=== PATIENT | male | born 1945 | race Caucasian/White ===

== ENCOUNTER → 2017-12-20 10:26 | Outpatient (CLI) | payer MEDICARE, OTHER, SELFPAY ==
[2017-12-20 12:02] LABS: Hematocrit 45.4 % (40-54); Hemoglobin 15.3 g/dl (13.0-16.5); Mean Corp Hgb Conc 33.7 g/gl (32-36); Mean Corpuscular Hgb 30.9 pg (27.0-32.0); Mean Corpuscular Volume 91.7 fL (80-94); Mean Platelet Vol. 10.5 fl (6.2-12.0); Platelet Count 227 K/mm3 (150-450); RBC Distribution Width CV 13.3 % (11.6-14.6); RBC Distribution Width SD 43.8 fl (35.1-43.9); Red Blood Count 4.95 M/mm3 (4.6-6.2); White Blood Count 5.7 K/mm3 (4.4-11.0)
[2017-12-20 12:07] LABS: Scan Indicated on CBC? Y/N NO
[2017-12-20 12:16] LABS: BUN 16 mg/dL (7-18); Creatinine, Serum 0.95 mg/dL (0.70-1.30); Glucose 69 mg/dL (70-110)
[2017-12-20 12:17] LABS: ALB/GLOB Ratio 0.8 RATIO (0.9-2.4); AST(SGOT) 31 U/L (15-37); Alanine Aminotransfer ALT/SGPT 41 U/L (16-61); Albumin, Serum 3.4 g/dL (3.2-5.0); Alkaline Phosphatase 54 U/L (45-117); Anion Gap 9 (5-15); BUN/Creat Ratio 16.8 RATIO (10-20); Calcium,Total 8.8 mg/dL (8.5-10.1); Chloride 103 mmol/L (98-107); Cholesterol 120 mg/dL (200); EST Glomerular Filtration Rate 82 mL/min (>60); Est Glom Filt Rate - Afr Amer 100 mL/min (>60); Globulin 4.1 g/dL (2.2-4.2); High Density Lipoprotein 39 mg/dL; Potassium 3.9 mmol/L (3.5-5.1); Protein, Total 7.5 g/dL (6.4-8.2); Sodium Level 140 mmol/L (136-145); Triglycerides 118 mg/dL; Very Low Density Lipoprotein 24 mg/dL (5-40)
== END ==
PROVIDERS: Family Provider Family Medicine; PCP Family Medicine; Visit Provider Family Medicine
DX: E11.40 Type 2 diabetes mellitus with diabetic neuropathy, unspecified (principal); E29.1 Testicular hypofunction
CPT/HCPCS: 36415; 80053; 80061; 84403; 85027

== ENCOUNTER → 2018-01-04 09:55 | Outpatient (CLI) | payer MEDICARE, OTHER, SELFPAY ==
[2018-01-04 10:39] LABS: Amphetamine Urine VISTA NEGATIVE (<1000 ng/mL); Barbiturate Urine VISTA NEGATIVE (< 200 ng/mL); Benzodiazepine Urine VISTA NEGATIVE (< 200 ng/mL); Cocaine Urine VISTA NEGATIVE (< 300 ng/mL); Ecstacy Urine VISTA NEGATIVE (< 500 ng/mL); Methadone Urine VISTA NEGATIVE (< 300 ng/mL); PCP Urine VISTA NEGATIVE (< 25 ng/mL); THC Urine VISTA NEGATIVE (< 50 ng/mL); Vista UDS pH Range 6
== END ==
PROVIDERS: Family Provider Family Medicine; PCP Family Medicine; Visit Provider Anesthesiology Pain Medicine
DX: F11.20 Opioid dependence, uncomplicated (principal)
CPT/HCPCS: 80307

== ENCOUNTER → 2018-01-08 10:09 | Outpatient (CLI) | payer MEDICARE, OTHER, SELFPAY ==
--- NOTE | 2018-01-08 10:13 | RAD_ITS ---
XR Wrist Min 3 Views INDICATION: pt fell and broke wrist in September, pt still having pain COMPARISON: None TECHNIQUE: 3 views of the left wrist FINDINGS: There is an impacted and minimally angulated fracture of the left distal radius. The left distal ulna appears intact. There is normal alignment of the carpal bones. RAD/Wrist min 3 Views IMPRESSION: Mildly impacted and minimally angulated left distal radial fracture. at 0051 Reported and signed by: Nikki Bowman MD Electronically Signed: Nikki Bowman MD at 23:50 EST Tel , Service support ,
== END ==
PROVIDERS: Family Provider Family Medicine; PCP Family Medicine; Visit Provider Family Medicine
DX: S52.502A Unspecified fracture of the lower end of left radius, initial encounter for closed fracture (principal); X58.XXXA Exposure to other specified factors, initial encounter
CPT/HCPCS: 73110

== ENCOUNTER → 2018-01-11 09:48 | Outpatient (CLI) | payer MEDICARE, OTHER, SELFPAY ==
--- NOTE | 2018-01-11 09:53 | RAD_ITS ---
STUDY: X-RAY - RIGHT SHOULDER REASON FOR EXAM: Male, 72 years old. Right shoulder pain. TECHNIQUE: 4 view(s) of the shoulder. COMPARISON: None. FINDINGS: Normal glenohumeral articulation. Normal acromioclavicular joint. Normal acromion. Normal humeral head and visualized proximal humerus. The soft tissue structures are unremarkable. Normal visualized pulmonary apex. RAD/Shoulder min 2 Views IMPRESSION: Normal x-ray examination of the shoulder. Electronically Signed: Cory Jose MD at 14:02 EST Tel [phone], Service support ,
[2018-01-11 11:58] LABS: Hematocrit 44.6 % (40-54); Hemoglobin 14.9 g/dl (13.0-16.5); Mean Corp Hgb Conc 33.4 g/gl (32-36); Mean Corpuscular Hgb 30.8 pg (27.0-32.0); Mean Corpuscular Volume 92.1 fL (80-94); Mean Platelet Vol. 10.2 fl (6.2-12.0); Platelet Count 274 K/mm3 (150-450); RBC Distribution Width CV 13.7 % (11.6-14.6); RBC Distribution Width SD 45.3 fl (35.1-43.9); Red Blood Count 4.84 M/mm3 (4.6-6.2); White Blood Count 8.2 K/mm3 (4.4-11.0)
[2018-01-11 12:02] LABS: Scan Indicated on CBC? Y/N NO
[2018-01-11 12:17] LABS: T4 Free Direct 1.18 ng/dL (0.76-1.46); Thyroid Stim Hormone (TSH) 2.06 uIU/mL (0.358-3.74)
[2018-01-11 12:18] LABS: Erythrocyte Sedimentation Rate 29 mm/hr (0-20)
[2018-01-12 10:24] LABS: Vitamin B12 956 pg/mL (211-911)
[2018-01-14 12:06] LABS: Testosterone, Free 5.35 ng/dL (5.00-21.00)
[2018-01-15 11:22] LABS: Testosterone, Total 191 ng/dL (264-916)
== END ==
PROVIDERS: Family Provider Family Medicine; PCP Family Medicine; Visit Provider Family Medicine
DX: M75.21 Bicipital tendinitis, right shoulder (principal); R53.83 Other fatigue
CPT/HCPCS: 36415; 73030; 82607; 84402; 84403; 84439; 84443; 85027; 85652

== ENCOUNTER → 2018-07-03 09:44 | Outpatient (CLI) | payer MEDICARE, OTHER, SELFPAY | PROVIDERS: Family Provider Family Medicine; PCP Family Medicine; Visit Provider Internal Medicine Pulmonary Disease | DX: R06.00 Dyspnea, unspecified (principal) | CPT/HCPCS: 71046 ==

== ENCOUNTER → 2018-08-07 12:06 | Outpatient (CLI) | payer MEDICARE, OTHER, SELFPAY ==
[2018-08-07 13:15] LABS: Amphetamine Urine VISTA NEGATIVE (<1000 ng/mL); Barbiturate Urine VISTA NEGATIVE (< 200 ng/mL); Benzodiazepine Urine VISTA NEGATIVE (< 200 ng/mL); Cocaine Urine VISTA NEGATIVE (< 300 ng/mL); Ecstacy Urine VISTA NEGATIVE (< 500 ng/mL); Methadone Urine VISTA NEGATIVE (< 300 ng/mL); PCP Urine VISTA NEGATIVE (< 25 ng/mL); THC Urine VISTA NEGATIVE (< 50 ng/mL); Vista UDS pH Range 6
== END ==
PROVIDERS: Family Provider Family Medicine; PCP Family Medicine; Visit Provider Anesthesiology Pain Medicine
DX: F11.20 Opioid dependence, uncomplicated (principal)
CPT/HCPCS: 80307

== ENCOUNTER → 2018-12-12 16:22 | Outpatient (CLI) | payer MEDICARE, OTHER, SELFPAY ==
[2018-12-12 17:59] LABS: Absolute Lymphocyte Count 4.35 X10^3/ul (0.83-4.51); Absolute Neutrophil Count 5.3 X10^3/uL (2.0-7.7); Basophil# 0.06 X10^3/uL; Basophil% 0.5 % (0-1); Eosinophil# 0.24 X10^3/uL; Eosinophils% 2.2 % (0-5); Hematocrit 44.7 % (40-54); Hemoglobin 14.8 g/dl (13.0-16.5); Lymphocyte # 4.35 X10^3/ul (4.0); Lymphocyte % 39.4 % (19-41); Mean Corp Hgb Conc 33.1 g/gl (32-36); Mean Corpuscular Hgb 30.6 pg (27.0-32.0); Mean Corpuscular Volume 92.5 fL (80-94); Mean Platelet Vol. 10.5 fl (6.2-12.0); Monocyte# 1.08 X10^3/uL; Monocyte% 9.8 % (0-10); Neutrophil # 5.27 X10^3/uL (2.7-7.7); Neutrophil % 47.6 % (47-70); Platelet Count 275 K/mm3 (150-450); RBC Distribution Width CV 13.8 % (11.6-14.6); RBC Distribution Width SD 46.3 fl (35.1-43.9); Red Blood Count 4.83 M/mm3 (4.6-6.2); White Blood Count 11.1 K/mm3 (4.4-11.0)
[2018-12-12 18:01] LABS: POSITIVE COUNT NO; POSITIVE DIFFERENTIAL NO; POSITIVE MORPHOLOGY NO
[2018-12-12 18:12] LABS: AST(SGOT) 17 U/L (15-37); Alanine Aminotransfer ALT/SGPT 38 U/L (16-61); Albumin, Serum 3.7 g/dL (3.2-5.0); Alkaline Phosphatase 57 U/L (45-117); Anion Gap 10 (5-15); BUN 20 mg/dL (7-18); BUN/Creat Ratio 19.6 RATIO (10-20); Calcium,Total 9.1 mg/dL (8.5-10.1); Chloride 104 mmol/L (98-107); Creatinine, Serum 1.02 mg/dL (0.70-1.30); EST Glomerular Filtration Rate 76 mL/min (>60); Est Glom Filt Rate - Afr Amer 92 mL/min (>60); Globulin 3.6 g/dL (2.2-4.2); Glucose 170 mg/dL (74-106); Potassium 3.8 mmol/L (3.5-5.1); Protein, Total 7.3 g/dL (6.4-8.2); Sodium Level 142 mmol/L (136-145)
--- OUTSIDE RECORDS SUMMARY | 2019-02-13 18:49 | XMS RPT_ITS ---
:1945 Author Organization OHIP Support Name Relationship Address Phone R Unavailable Unavailable Unavailable CHIQUITA GRIFFITH Unavailable [address] + [place] [address] R Unavailable Unavailable Unavailable CHIQUITA GRIFFITH Unavailable [address] + [place] [address] R Unavailable Unavailable Unavailable CHIQUITA GRIFFITH Unavailable [address] + [place] [address] Chiquita Griffith L Unavailable Unavailable + R Unavailable Unavailable Unavailable CHIQUITA GRIFFITH Unavailable [address] + [place] [address] Chiquita Griffith L Unavailable Unavailable + Chiquita Griffith L Unavailable Unavailable + Chiquita Griffith L Unavailable Unavailable + Chiquita Griffith L Unavailable Unavailable + Chiquita Griffith L Unavailable Unavailable + R Unavailable Unavailable Unavailable R Unavailable Unavailable Unavailable CHIQUITA GRIFFITH Unavailable [address] + [facility] [place] [address] MARVIN PRICE Unavailable [address] + [place] [address] R Unavailable Unavailable Unavailable CHIQUITA GRIFFITH Unavailable [address] + [facility] [place] [address] Chiquita Griffith L Unavailable Unavailable + MARVIN PRICE Unavailable [address] + [place] [address] R Unavailable Unavailable Unavailable CHIQUITA GRIFFITH Unavailable [address] + [facility] [place] [address] MARVIN PRICE Unavailable [address] + [place] [address] R Unavailable Unavailable Unavailable ROBYN GRIFFITHCY Unavailable [address] + [place] [address] FIDEL PRICEANDA Unavailable [address] + [place] [address] R Unavailable Unavailable Unavailable ROBYN GRIFFITHCY Unavailable [address] + [place] [address] ALBERT MARVIN Unavailable [address] + [place] [address] R Unavailable Unavailable Unavailable YUROBYN WEEMSCY Unavailable [address] + [place] [address] Care Team Providers Name Role Phone Roel Saucedo Attending Unavailable PROVIDER, UNKNOWN Referring Unavailable Jolliff, Patricia S Primary Care Unavailable Roel Saucedo Attending Unavailable PROVIDER, UNKNOWN Referring Unavailable Jolliff, Patricia S Primary Care Unavailable Roel Saucedo Attending Unavailable PROVIDER, UNKNOWN Referring Unavailable Jolliff, Patricia S Primary Care Unavailable Krissy Castaneda Attending Unavailable PROVIDER, UNKNOWN Referring Unavailable Jolliff, Patricia S Primary Care Unavailable Krissy Castaneda Attending Unavailable PROVIDER, UNKNOWN Referring Unavailable Jolliff, Patricia S Primary Care Unavailable Krissy Castaneda Attending Unavailable PROVIDER, UNKNOWN Referring Unavailable Jolliff, Patricia S Primary Care Unavailable Roel Saucedo Attending Unavailable PROVIDER, UNKNOWN Referring Unavailable Jolliff, Patricia S Primary Care Unavailable Arnaud Jean-Baptiste Attending Unavailable Jolliff, Patricia Primary Care Unavailable Roberto Hodge Attending Unavailable Roberto Hodge Referring Unavailable Jolliff, Patricia Primary Care Unavailable Rito Marques Attending Unavailable Ranney, Christopher Primary Care Unavailable FranciscoiKim Attending Unavailable Basali, Ayman Referring Unavailable Ranney, Christopher Primary Care Unavailable RanneyFabiáner Attending Unavailable Ranney, Christopher Referring Unavailable Ranney, Christopher Primary Care Unavailable RanFabián hernándezer Attending Unavailable Ranney, Christopher Primary Care Unavailable Sandra Durbin Attending Unavailable Vladimir Sears Attending Unavailable Ranney, Christopher Referring Unavailable Ranney, Christopher Primary Care Unavailable Jose Perez Attending Unavailable Jose Perez Referring Unavailable Jolliff, Patricia Primary Care Unavailable Basali Ayman Attending Unavailable Basali, Ayman Referring Unavailable Jolliff, Patricia Primary Care Unavailable PROBLEMS PROBLEMS DATE TYPE CONDITION / CODE ATTENDING STATUS SOURCE 12/17/2018 Unknown Z96.652 - Presence Estiven, Arnaud Active [facility] left artificial Community knee joint / Hospital Z96.652(ICD-10) Repository 07/12/2018 Admitting Unsp fx lower end of Lewis, Roel Active [facility] Diagnosis l ulna, subs for System clos fx w routn heal Repository / S52.602D(ICD-10) 07/12/2018 Admitting Other specified Lewis, Roel Active [facility] Diagnosis postprocedural System states / Repository Z98.890(ICD-10) 07/12/2018 Admitting Oth disrd of bone Lewis, Roel Active [facility] Diagnosis density and System structure, left Repository forearm / M85.832(ICD-10) 05/31/2018 Admitting Pain in left wrist / McGreal, Active [facility] Diagnosis M25.532(ICD-10) Krissy System Repository 05/31/2018 Admitting Unsp physl fx low McGreal, Active [facility] Diagnosis end ulna, l arm, Krissy System subs for fx w routn Repository heal / S59.002D(ICD-10) 04/17/2018 Admitting Sanchez's fracture of Lewis, Roel Active [facility] Diagnosis r radius, subs for System clos fx w malunion / Repository S52.561P(ICD-10) 04/17/2018 Admitting Other articular Lewis, 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, System left wrist / Repository M24.132(ICD-10) 04/17/2018 Admitting Essential (primary) Lewis, Roel Active [facility] Diagnosis hypertension / System I10(ICD-10) Repository 04/17/2018 Admitting Type 2 diabetes Lewis, Roel Active [facility] Diagnosis mellitus without System complications / Repository E11.9(ICD-10) 04/17/2018 Admitting Hyperlipidemia, Lewis, Roel Active [facility] Diagnosis unspecified / System E78.5(ICD-10) Repository 04/17/2018 Admitting Anxiety disorder, Lewis, Roel Active [facility] Diagnosis unspecified / System F41.9(ICD-10) Repository 04/10/2018 Admitting Encounter for other Lewis, Roel Active [facility] Diagnosis preprocedural System examination / Repository Z01.818(ICD-10) 04/10/2018 Admitting Sanchez's fracture of Roel Saucedo [facility] Diagnosis left radius, init System for clos fx / Repository S52.562A(ICD-10) 01/04/2018 Unknown F11.20 - Opioid Basali, Ayman Active [place] dependence, Community uncomplicated / Hospital F11.20(ICD-10) Repository PROCEDURES PROCEDURES No Procedure Records FoundRESULTS RESULTS HEMOGLOBIN A1C Collected: 12/17/2018 Status: F Source: [place] 3:51 PM [facility] REPOSITORY TYPE CODE TESTS RESULT OUT OF RANGE REFERENCE UNITS LAB L501.9985 4.2-6.3 % High HGB A1C 8.5 Performed By: #### L501.9985 #### [facility] [address] [place], [address] LIPID PROFILE Collected: 12/17/2018 Status: F Source: [place] 3:51 PM [facility] REPOSITORY TYPE CODE TESTS RESULT OUT OF RANGE REFERENCE UNITS LAB L501.4900 200 mg/dL Normal CHOL 149 Result Comment: <200 mg/dL Desirable 200-240 mg/dL Borderline >240 mg/dL High Risk LAB L501.5000 mg/dL High TRIG 236 Result Comment: The drugs N-Acetylcysteine and Metamizole may falsely depress this assay. Serum Triglycerides Reference Interval Normal <150 mg/dL Borderline high 150 - 199 mg/dL High 200 - 499 mg/dL Very High > or = 500 mg/dL LAB L501.6400 mg/dL Low HDL 37 Result Comment: The drugs N-Acetylcysteine and Metamizole may falsely depress this assay. Reference Range HDL <40 mg/dL Low HDL Cholesterol HDL >or= 60 mg/dL High HDL Cholesterol LAB L501.6500 0-130 mg/dL Normal LDL 65 LAB L501.6600 5-40 mg/dL High VLDL 47 Performed By: #### L500.4100 #### [facility] [address] [place], [address] CBC W/DIFF, AUTOMATED Collected: 12/12/2018 Status: F [facility] [facility] TYPE CODE TESTS RESULT OUT OF RANGE REFERENCE UNITS LAB L100.1000 4.4-11.0 K/mm3 High WBC 11.1 LAB L100.1200 4.6-6.2 M/mm3 Normal RBC 4.83 LAB L100.1300 13.0-16.5 g/dl Normal HGB 14.8 LAB L100.1400 40-54 % Normal HCT 44.7 LAB L100.1500 80-94 fL Normal MCV 92.5 LAB L100.1600 27.0-32.0 pg Normal MCH 30.6 LAB L100.1700 32-36 g/gl Normal MCHC 33.1 LAB L100.1810 11.6-14.6 % Normal RDW CV 13.8 LAB L100.1820 35.1-43.9 fl High RDW SD 46.3 LAB L100.1900 150-450 K/mm3 Normal PLT 275 LAB L100.2000 6.2-12.0 fl Normal MPV 10.5 LAB L100.2100 47-70 % Normal NEUT% 47.6 LAB L100.2200 19-41 % Normal LY% 39.4 LAB L100.2300 0-10 % Normal MONO% 9.8 LAB L100.2400 0-5 % Normal EO% 2.2 LAB L100.2500 0-1 % Normal BASO% 0.5 LAB L100.2550 0.0-0.9 % Normal IM GRAN % 0.500 Result Comment: IG% - Immature Granulocytes (promyelocytes, myelocytes and metamyelocytes) > 1% indicates that a LEFT SHIFT is Present. LAB L100.2620 2.0-7.7 X10 3/uL Normal Absolute Neut 5.3 LAB L100.2720 0.83-4.51 X10 3/ul Normal Absolute Lymph 4.35 Performed By: #### L100.0100, L500.4050 #### [facility] [place], [address] COMPREHENSIVE METABOLIC Collected: 12/12/2018 Status: F [facility] REPOSITORY TYPE CODE TESTS RESULT OUT OF RANGE REFERENCE UNITS LAB L501.0100 74-106 mg/dL High GLU 170 Result Comment: Fasting Glucose result greater than or equal to 126 mg/dL suggests DIABETES MELLITUS per A.D.A. criteria. Please note revised GLUCOSE reference range effective 2017. LAB L501.1000 7-18 mg/dL High BUN 20 LAB L501.1100 0.70-1.30 mg/dL Normal CREAT,SERUM 1.02 Result Comment: The validity of the calculated GFR AND GFRAA in patients over 70 years has not been determined. Clinical correlation is essential. LAB L501.1110 >60 mL/min Normal EST GFR 76 Result Comment: Non- GFR Calc LAB L501.1115 >60 mL/min Normal EST GFR - AA 92 Result Comment: GFR Calc LAB L501.1300 10-20 RATIO Normal BUN/CRE 19.6 LAB L501.1500 6.4-8.2 g/dL T Normal PROT 7.3 LAB L501.1800 3.2-5.0 g/dL Normal ALB 3.7 LAB L501.1950 2.2-4.2 g/dL Normal GLOB 3.6 LAB L501.2000 0.9-2.4 RATIO Normal A/G 1.0 LAB L501.2200 8.5-10.1 mg/dL CA Normal 9.1 LAB L501.4100 15-37 U/L Normal AST 17 LAB L501.4305 45-117 U/L Normal ALK P 57 LAB L501.4405 16-61 U/L Normal ALT 38 LAB L501.4600 0.20-1.00 mg/dL T Normal BILI 0.60 LAB L501.5300 136-145 mmol/L NA Normal 142 LAB L501.5600 3.5-5.1 mmol/L K Normal 3.8 LAB L501.5900 98-107 mmol/L CL Normal 104 LAB L501.6100 21.0-32.0 mmol/L Normal CO2 28.0 LAB L501.6200 5-15 Normal GAP 10 Performed By: #### L100.0100, L500.4050 #### [facility] [address] [place], [address] URINE DRUG SCREEN Collected: 08/07/2018 Status: F Source: [place] ([place]) 12:12 PM [facility] REPOSITORY Order Comment: Comments: [id number] URINE DRUG SCREEN List of Drugs Taken or Suspected? UNK TYPE CODE TESTS RESULT OUT OF RANGE REFERENCE UNITS LAB L505.0075 TO BE Normal CONFIRMED Result Comment: CONFIRMATORY TESTING FOR ALL POSITIVE URINE DRUG SCREEN RESULTS WILL ONLY BE SENT OUT UPON PHYSICIAN ORDER. VISTA Urine Drug Screen methods provide only preliminary analytical test results. A more specific alternate chemical method must be used in order to obtain a confirmed analytical result. Gas chromatography/mass spectrometery (GC/MS) is the preferred confirmatory method. Clinical consideration and professional judgement should be applied to any drug of abuse test result, particularly when preliminary positive results are used. URINE TCA TESTING MUST BE ORDERED SEPARATELY. USE TEST MNEMONIC: [facility] LAB L505.5005 VISTA UDS PH 6 Normal LAB L505.5015 <1000 ng/mL AMPHETAMINES Normal NEGATIVE LAB L505.5025 < 200 ng/mL BARBITIURATES Normal NEGATIVE LAB L505.5035 < 200 ng/mL BENZODIAZIPINE Normal NEGATIVE LAB L505.5045 < 300 ng/mL COCAINE Normal NEGATIVE LAB L505.5055 < 500 ng/mL ECSTACY Normal NEGATIVE LAB L505.5065 < 300 ng/mL METHADONE Normal NEGATIVE LAB L505.5075 < 300 High ng/mL OPIATES POSITIVE LAB L505.5085 < 25 ng/mL PCP Normal NEGATIVE LAB L505.5095 < 50 ng/mL THC Normal NEGATIVE Performed By: #### L505.5000 #### [facility] [address] [place], [address] MISCELLANEOUS LAB Collected: 08/07/2018 Status: F Source: [place] PROCEDURE 12:12 PM [facility] REPOSITORY Order Comment: Comments: [id number] URINE DRUG SCREEN Test(s) Ordered: [id number] URINE DRUG SCREEN TYPE CODE TESTS RESULT OUT OF RANGE REFERENCE UNITS LAB L801.1541 Normal [facility] LAB TEST Result Comment: TEST RESULT UNITS REF INTERVAL [id number] 6+Oxycodone-Bund Amphetamines, Urine Negative ng/mL Ifddkw=3680 Amphetamine test includes Amphetamine and Methamphetamine. Barbiturate Negative ng/mL Rjytlt=481 Benzodiazepines Negative ng/mL Bubyoh=418 Cannabinoids Negative ng/mL Cutoff=20 Cocaine (Metabolite) Negative ng/mL Trngau=110 Opiates Positive ng/mL Kdlofa=331 Opiate test includes Codeine, Morphine, Hydromorphone, Hydrocodone. Please Note: Confirmation performed by Mass Spectrometry Codeine Negative Qacygg=233 Morphine Negative Pvxlgw=042 Hydromorphone Negative Srpkec=206 Hydrocodone Positive Hydrocodone Confirm 333 ng/mL Bayxvw=877 Oxycodone/Oxymorphone, Urine Negative ng/mL Shwktb=388 Test includes Oxycodone and Oxymorphone TESTING PERFORMED AT [facility]. ORIGINAL REPORT ON FILE IN LAB CONTAINS ADDITIONAL TEST SITE INFORMATION. Performed By: #### L801.1541 #### [facility] [address] [place], [address] CR FOREARM 2 VIEWS Observed: 07/12/2018 Status: F Source: [facility] 5:51 PM SYSTEM REPOSITORY Patient Name: KEVIN GRIFFITH Diagnostic Radiology Exam Date/Time 07/12/2018 08:00:00 EDT Exam CR Forearm 2 Views Left Ordering Physician MD LEWIS, ROEL Benton Accession Number [id number] CPT4 Codes 21150 () Reason For Exam surgery Report LEFT FOREARM: CLINICAL INDICATION: Surgery. Fracture follow-up. TECHNIQUE: AP and Lateral COMPARISON: 05/31/2018. FINDINGS: There is remote healed transverse fracture deformity of the distal third of the ulna, which is maintained by side plate and screws. Alignment and positioning of the humeral fracture fragments remain anatomic. Callous formation is evident at the fracture site. No other bony or soft tissue abnormality is identified. IMPRESSION: Status post ORIF distal ulnar shaft fracture. No interval changes. Report Dictated on Final Dictating Physician: JOS SHARMA DO, I Signed Date and Time: 07/12/2018 5:53 pm Signed by: JOS SHARMA DO, I Transcribed Date and Time: 07/12/2018 5:54 CR WRIST COMPLETE 3 Observed: 07/12/2018 Status: F Source: [facility] VIEWS LEFT 3:57 PM SYSTEM REPOSITORY Patient Name: KEVIN GRIFFITH Diagnostic Radiology Exam Date/Time 07/12/2018 07:50:00 EDT Exam CR Wrist Complete 3 Views Left Ordering Physician MD LEWIS, ROEL Benton Accession Number [id number] CPT4 Codes 38331 () Reason For Exam surgery Report CLINICAL HISTORY: surgery COMPARISON: None. Technique: AP, lateral, and oblique views were obtained of the left wrist. FINDINGS: The patient is status post plate and screw fixation of the distal ulna. There is no acute fracture or dislocation of the left wrist., The joint spaces are normal and the alignment is anatomic. The bones are mildly osteopenia. The soft tissues are unremarkable. There are no radiopaque foreign bodies. IMPRESSION: No acute osseous out amount the of the left wrist. Moderate osteopenia. Report Dictated on Final Dictating Physician: MD OSULLIVAN YUN ROBERT Signed Date and Time: 07/12/2018 3:58 pm Signed by: MD OSULLIVAN YUN ROBERT Transcribed Date and Time: 07/12/2018 4:00 CHEST PA AND LATERAL Observed: 07/03/2018 Status: F Source: [place] 9:49 AM [facility] REPOSITORY [facility] [address] [place] [address] Chest PA and Lateral MR#: [id number] Acct: [id number] Name: KEVIN GRIFFITH Rep #: [id number] : 1945 M 72 From: Fide Padilla MD PCP: Patricia Mcgowan MD Status: REG CLI Study: Chest PA and Lateral Date of Exam: 07/03/18 Exam# [id number] Ordering Dr: Jose Perez MD STUDY: X-RAY CHEST REASON FOR EXAM: Male, 72 years old. INCREASED DYSPNEA X SEVERAL MONTHS TECHNIQUE: PA and lateral views of the chest. COMPARISON: None. FINDINGS: The lungs are hyperexpanded with mildly prominent interstitial markings/atelectasis at the lung bases.. There is no demonstrated pleural abnormality. Normal size heart. Normal mediastinum and javier. Normal visualized pulmonary arteries. Normal visualized aortic arch and descending thoracic aorta. There are diffuse degenerative changes of the visualized thoracic spine. Normal visualized ribs, clavicles, and shoulders. There is no demonstrated abnormality of the visualized soft tissue structures of the upper abdomen. RAD/Chest PA and Lateral IMPRESSION: The lungs are hyperexpanded with mildly prominent interstitial markings/atelectasis at the lung bases.. Electronically Signed: Fide Padilla MD at 10:54 EDT , Service support , CC: Patricia Mcgowan MD; Jose Perez MD Interior Specialist: Signed CR WRIST COMPLETE 3 Observed: 05/31/2018 Status: F Source: [facility] VIEWS LEFT 12:22 PM SYSTEM REPOSITORY Patient Name: KEVIN GRIFFITH Diagnostic Radiology Exam Date/Time 05/31/2018 07:55:00 EDT Exam CR Wrist Complete 3 Views Left Ordering Physician EDYTA CASTANEDA, KRISSY [place] Accession Number [id number] CPT4 Codes 06853 () Reason For Exam PAIN Report Clinical indications: Left wrist pain Findings: Three views are submitted for interpretation. There are no previous exams for comparison. There is no evidence of acute fracture, dislocation or subluxation.Intercarpal relationships are well-preserved. There is no appreciable degenerative change. The surrounding soft tissues are intact. There is no evidence of radio opaque foreign body or soft tissue gas formation. Plate and screw fixation of the distal ulnar shaft fracture is partially visualized. Impression: No acute osseous abnormality of the left wrist. Report Dictated on Final Dictating Physician: MD PERLA RUSSELL Signed Date and Time: 05/31/2018 12:23 pm Signed by: MD PERLA RUSSELL Transcribed Date and Time: 05/31/2018 12:25 CR FOREARM 2 VIEWS Observed: 05/31/2018 Status: F Source: [facility] LEFT 12:19 PM SYSTEM REPOSITORY Patient Name: KEVIN GRIFFITH Diagnostic Radiology Exam Date/Time 05/31/2018 07:55:00 EDT Exam CR Forearm 2 Views Left Ordering Physician EDYTA CASTANEDA NATALIE M Accession Number [id number] CPT4 Codes 69588 () Reason For Exam PAIN Report Clinical indications: Left forearm pain FINDINGS: Two views are submitted. Comparison is made with a previous study from 05/17/2018. There is plate and lag screw fixation of a distal diaphyseal ulnar fracture, with anatomic reduction. Hardware is intact. The soft tissues are within normal limits. Fracture line is not well visualized. Bone mineralization is normal. IMPRESSION: Unremarkable appearance, status post ORIF of ulnar shaft fracture. Intact hardware. Report Dictated on Final Dictating Physician: MD PERLA RUSSELL Signed Date and Time: 05/31/2018 12:21 pm Signed by: MD PERLA RUSSELL Transcribed Date and Time: 05/31/2018 12:22 CR WRIST COMPLETE 3 Observed: 05/17/2018 Status: F Source: [facility] LEFT 3:49 PM SYSTEM REPOSITORY Patient Name: KEVIN GRIFFITH Diagnostic Radiology Exam Date/Time 05/17/2018 14:26:52 EDT Exam CR Wrist Complete 3 Views Left Ordering Physician EDYTA CASTANEDA NATALIE M Accession Number [id number] CPT4 Codes 15448 () Reason For Exam pain Report HISTORY: Follow-up ORIF ulna Two views left forearm show healed fracture of the distal ulna with internal fixation with plate and screws. Left wrist three views are negative except for mild degenerative changes at the first metacarpal carpal joint Report Dictated on Final Dictating Physician: MD WADDELL WILLIAM Signed Date and Time: 05/17/2018 3:50 pm Signed by: MD WADDELL WILLIAM Transcribed Date and Time: 05/17/2018 3:51 CR FOREARM 2 VIEWS Observed: 05/17/2018 Status: F Source: [facility] 3:49 PM SYSTEM REPOSITORY Patient Name: KEVIN GRIFFITH Diagnostic Radiology Exam Date/Time 05/17/2018 14:26:23 EDT Exam CR Forearm 2 Views Left Ordering Physician EDYTA CASTANEDA NATALIE M Accession Number [id number] CPT4 Codes 95631 () Reason For Exam PAIN Report HISTORY: Follow-up ORIF ulna Two views left forearm show healed fracture of the distal ulna with internal fixation with plate and screws. Left wrist three views are negative except for mild degenerative changes at the first metacarpal carpal joint Report Dictated on Final Dictating Physician: MD WADDELL WILLIAM Signed Date and Time: 05/17/2018 3:50 pm Signed by: MD WADDELL WILLIAM Transcribed Date and Time: 05/17/2018 3:51 CR WRIST COMPLETE 3 Observed: 05/03/2018 Status: F Source: [facility] LEFT 2:19 PM SYSTEM REPOSITORY Patient Name: KEVIN GRIFFITH Diagnostic Radiology Exam Date/Time 05/03/2018 12:40:00 EDT Exam CR Wrist Complete 3 Views Left Ordering Physician EDYTA CASTANEDA NATALIE M Accession Number [id number] CPT4 Codes 98662 () Reason For Exam PAIN Report Examination: Left wrist 3 views Indication: PAIN Findings: Images demonstrate plate and screw fixation of the mid to distal ulna. There is no fracture line or osteotomy demonstrated. Small amount of cystic change of the lunate is noted. There are degenerative changes at the STT articulation.. Mild soft tissue swelling is noted. Impression: Unremarkable postsurgical changes. Report Dictated on Workstation: [employer] Final Dictating Physician: JOSH LOMAS Signed Date and Time: 05/03/2018 2:20 pm Signed by: JOSH LOMAS Transcribed Date and Time: 05/03/2018 2:22 CR FOREARM 2 VIEWS Observed: 05/03/2018 Status: F Source: [facility] LEFT 2:17 PM SYSTEM REPOSITORY Patient Name: KEVIN GRIFFITH Diagnostic Radiology Exam Date/Time 05/03/2018 12:40:00 EDT Exam CR Forearm 2 Views Left Ordering Physician EDYTA CASTANEDA NATALIE M Accession Number [id number] CPT4 Codes 30601 () Reason For Exam PAIN Report Examination: Left forearm two views Indication: PAIN Findings: Images demonstrate plate and screw fixation of the mid to distal ulna. There is no fracture line or osteotomy demonstrated. The visualized joint spaces are grossly maintained. The soft tissues are grossly unremarkable. Impression: Unremarkable postsurgical changes. Report Dictated on Workstation: [employer] Final Dictating Physician: JOSH LOMAS Signed Date and Time: 05/03/2018 2:19 pm Signed by: JOSH LOMAS Transcribed Date and Time: 05/03/2018 2:20 GLUCOSE,BEDSIDE Collected: 04/17/2018 Status: F Source: [facility] 9:49 AM SYSTEM REPOSITORY TYPE CODE TESTS RESULT OUT OF RANGE REFERENCE UNITS LAB BGLU 70-100 mg/dL High 173 Glucose,Beds mirza Result Comment: Test performed by glucose meter. Results may be 10%-15% lower than serum/plasma values. (CLIA ID [id number]) Performed By: #### BGLU #### [facility] [address] [place] [address] GLUCOSE,BEDSIDE Collected: 04/17/2018 Status: F Source: [facility] 6:34 AM SYSTEM REPOSITORY TYPE CODE TESTS RESULT OUT OF RANGE REFERENCE UNITS LAB BGLU 70-100 mg/dL High 219 Glucose,Beds mirza Result Comment: Test performed by glucose meter. Results may be 10%-15% lower than serum/plasma values. (CLIA ID [id number]) Performed By: #### BGLU #### [facility] [address] [place] [address] HEMOGRAM Collected: 04/10/2018 Status: F Source: [facility] 12:13 PM SYSTEM REPOSITORY TYPE CODE TESTS RESULT OUT OF RANGE REFERENCE UNITS LAB IWBC 3.6-10.7 10*3/uL WBC Normal 8.1 LAB RBC 4.40-5.90 10*6/uL RBC Normal 4.75 LAB HGB 13.0-18.0 g/dL Normal Hemoglobin 14.7 LAB HCT 40.0-52.0 % Normal Hematocrit 42.9 LAB MCV 80.0-98.0 fL MCV Normal 90.2 LAB MCH 26.0-34.0 pg MCH Normal 31.0 LAB MCHC 32.0-36.0 % MCHC Normal 34.4 LAB RDW 11.5-14.5 % RDW Normal 13.6 LAB PLT 140-440 10*3/uL Platelet Normal 216 LAB MPV 7.4-10.4 fL MPV Normal 8.4 Performed By: #### HEMOG, CMP3 #### [facility] [address] [place] [address] COMP METABOLIC PANEL Collected: 04/10/2018 Status: F Source: [facility] 12:13 PM SYSTEM REPOSITORY TYPE CODE TESTS RESULT OUT OF RANGE REFERENCE UNITS LAB NA3 137-145 mmol/L Sodium Normal 141 LAB K3 3.5-5.1 mmol/L Normal Potassium 4.0 LAB CL3 98-107 mmol/L Chloride Normal 101 LAB CO23 22-30 mmol/L High Carbon Dioxide 31 LAB ANIN3 NA Anion Gap 10 LAB GLUC3 70-100 mg/dL High Glucose 119 LAB BUN3 7-20 mg/dL High Urea Nitrogen 27 LAB CRET3 0.52-1.25 mg/dL Normal Creatinine 0.98 LAB GF3BR >60 mL/min eGFR > 60.0 LAB GF3WR >60 mL/min eGFR OTHER > 60.0 Result Comment: Source- MDRD equation with creatinine calibration to IDMS(NKDEP) eGFR not recommended for drug dose adjustment LAB CA3 8.4-10.2 mg/dL Calcium Normal 9.5 LAB ALB3 3.5-5.0 g/dL Albumin, Serum Normal 4.2 LAB TP3 6.3-8.2 g/dL Total Protein Normal 7.1 LAB BILT3 0.2-1.3 mg/dL Normal Bilirubin,Total 0.6 LAB ALKP3 38-126 U/L Alkaline Normal Phosphatase 54 LAB ALT3 13-69 U/L ALT (SGPT) Normal 43 LAB AST3 15-46 U/L AST (SGOT) Normal 24 Performed By: #### HEMOG, CMP3 #### [facility] [address] [place] [address] CARDIOLOGY VISIT Observed: 04/10/2018 Status: F Source: [place] REPORT 10:03 AM [facility] REPOSITORY [facility] [address] [place] [address] OFFICE VISIT Date of Service: 04/10/18 MR#: [id number] Acct: [id number] Name: KEVIN GRIFFITH Rep #: [id number] : 1945 Provider: Vladimir Sears MD Age/Sex: 72/M Location: [facility] Status: Signed HPI HPI Chief Complaint: Follow-up visit. Details: KEVIN GRIFFITH, is a 72 M who presents to the office today for a follow-up visit. He is a gentleman with a history of paroxysmal atrial fibrillation hypertension hyperlipidemia diabetes who returns for routine follow-up visit he says that he has not had any palpitations in a while he denies any chest pain or shortness breath or paroxysmal nocturnal dyspnea pedal edema no neck arm or jaw discomfort suggest angina. Indeed since starting the Toprol he has not had any issues. His physical exam today demonstrates clear lung lund regular rate and rhythm and no pedal edema. Intake Vital Signs04/10/18 Height 5 ft 11 in 04/10/18 Weight: 264 lb 04/10/18 Body Mass Index (BMI) 36.8 04/10/18 Blood Pressure 142/60 04/10/18 Respiratory Rate 18 04/10/18 Pulse Rate 72 Intake Visit Reasons: 6 M FU Allergies metoclopramide [From Reglan] Allergy (Verified 04/10/18 09:19) HYPER metformin [From Janumet] Adverse Reaction (Verified 04/10/18 09:19) unknown sitagliptin [From Janumet] Adverse Reaction (Verified 04/10/18 09:19) unknown Medications aspirin 81 mg tablet,delayed release 81 mg PO QDAY 04/06/18 [History Confirmed 04/10/18] gabapentin 300 mg capsule 600 mg PO QHS cap 04/06/18 [History Confirmed 04/10/18] glimepiride 4 mg tablet 4 mg PO BID tab 04/06/18 [History Confirmed 04/10/18] hydrochlorothiazide 25 mg tablet 25 mg PO QDAY 04/06/18 [History Confirmed 04/10/18] hydrocodone 5 mg-acetaminophen 325 mg tablet 1 tab PO BID PRN tab 04/06/18 [History Confirmed 04/10/18] insulin aspart U-100 100 unit/mL subcutaneous solution See Label Instructions .ROUTE .COMPLEX 04/06/18 [History Confirmed 04/10/18] insulin detemir (U-100) 100 unit/mL subcutaneous solution See Label Instructions .ROUTE .COMPLEX ml 04/06/18 [History Confirmed 04/10/18] ipratropium bromide 0.03 % nasal spray 2 spray INTRANASAL BID-TID PRN 04/06/18 [History Confirmed 04/10/18] metformin ER 750 mg tablet,extended release 24 hr 1,500 mg PO QHS tab 04/06/18 [History Confirmed 04/10/18] paroxetine 10 mg tablet 10 mg PO QDAY 04/06/18 [History Confirmed 04/10/18] potassium chloride 20 mEq oral packet 20 meq PO QDAY 04/06/18 [History Confirmed 04/10/18] pravastatin 80 mg tablet 80 mg PO QDAY 04/06/18 [History Confirmed 04/10/18] saxagliptin 5 mg-metformin ER 1,000 mg tablet,extend release 24hr mp 1 tab PO QDAY tab 04/06/18 [History Confirmed 04/10/18] tolterodine ER 4 mg capsule,extended release 24 hr 4 mg PO QDAY 04/06/18 [History Confirmed 04/10/18] metoprolol succinate ER 50 mg tablet,extended release 24 hr 50 mg PO QDAY #90 tab 04/10/18 [Rx Confirmed 04/10/18] Nurse's Note: Patient states he will be having LUE surgery next week at [facility] Medical History PAC (premature atrial contraction) (Chronic) Diabetes mellitus type 2, controlled (Chronic) HLD (hyperlipidemia) (Chronic) HTN (hypertension) (Chronic) Paroxysmal atrial fibrillation (Chronic) Arthritis (Chronic) Back problem (Chronic) Cataract (Chronic) Surgical History History of left tennis elbow (Chronic) History of skin cancer (Chronic) History of total left knee replacement (TKR) (Chronic) Hx of spinal fusion (Chronic) Family History Father Leukemia Social History Smoking Status: Former smoker alcohol intake: never substance use type: does not use ROS Const Const: Negative for fatigue, weakness, difficulty sleeping, frequent falls, headache(s) or excessive sweating Eyes Eyes: Negative for loss of peripheral vision, transient loss of vision, blurry vision or double vision ENT ENT: Negative for headache(s), dizziness, Nosebleed/epistaxis or balance problems Cardio Chest Pain: No Edema: None Muscle aches with walking: None Resp Respiratory: Negative for SOB with activity, SOB at rest, SOB orthopnea\SOB lying down or paroxysmal nocturnal dyspnea GI GI: Negative nausea or heartburn : Negative for hematuria Musc Musc: Positive for joint pain (LUE pain); negative for muscle aches/ myalgia, muscle weakness or balance problems Skin Skin: Negative non-healing lesions, unusual bruising or rash Neuro Neuro: Negative for weakness, frequent falls, blurry vision, headache(s), dizziness, lightheadedness, orthostatic symptoms or double vision Peter Hematologic/Lymphatic: Negative for easy bruising Endo Endo: Negative for fatigue, excessive sweating or increased thirst/drinking Psych Psych: Negative for anxiety or depression Allergy Allergy/Immunology: Negative for hives, Negative for rash Cardiology Exam Const Appearance: cooperative, healthy appearing, well developed, well groomed and no acute distress Nutritional Appearance: well nourished and average body habitus Orientation: alert, awake and oriented x3 Head Head: normal to inspection, normocephalic and atraumatic Ears: hearing grossly normal bilaterally and external ears normal Nose: external nose normal, nasal mucous membranes and turbinates normal, nares normal, septum normal, no nasal discharge Face and Sinus: face symmetric Mouth: oral mucosae normal, tongue normal, oropharynx normal and moist mucous membranes Teeth and gingiva: dentition normal Throat: posterior oropharynx normal, tonsils normal and uvula midline Eyes General: appearance normal, both eyes and all related structures Eyelids: eyelids normal Conjunctivae: conjunctivae normal Pupils: PERRL, normal by confrontation and accommodation normal EOM: EOM intact bilaterally Neck Neck: normal visual inspection, trachea midline and no JVD JVD: +5 Carotids: normal carotid upstroke and bounding pulses Chest Chest inspection: normal inspection of the chest, symmetric chest movement and normal respiratory effort Auscultation: Bilateral: Clear to Auscultation Cardio Palpation: normal PMI Rate: regular rate Rhythm: regular rhythm Heart sounds: S1 normal, S2 normal and normal, physiologic split S2; negative rub, gallop or murmur GI GI: normal to inspection, soft, no hepatosplenomegaly and bowel sounds present Neuro General: alert, awake, oriented x3, no focal sensory deficit, gait normal and moves all extremities Skin Skin: no rashes or lesions noted Extremities Pulses: Normal: Right Femoral Pulse, Left Femoral Pulse, Right Dorsalis Pedis Pulse, Left Dorsalis Pedis Pulse, Right Posterior Tibial Pulse, Left Posterior Tibial Pulse, Right Radial Pulse, Left Radial Pulse Lower Extremity Edema: None: Bilateral Musculoskel Musculoskeletal: No joint tenderness Psych Psychological: normal affect Assessment AND Plan 1. Paroxysmal atrial fibrillation I48.0 Plan With his history of palpitations with no documented paroxysmal atrial fibrillation on the 48 hour Holter monitor my recommendation is that we continue him on the current dose of aspirin as well as metoprolol. He has not had any neck arm or jaw discomfort suggest angina. No changes will be made at this time. 2. Essential hypertension I10 Plan His blood pressure appears to be under excellent control on the current medical therapy and I will continue to ask him to monitor this closely with no changes. 3. Pure hypercholesterolemia E78.00; E78.0 Plan He remains on his current dose of statin and his most recent lipid profile demonstrated total cholesterol 120, LDL 57 and HDL of 39. No other changes will be made. Thank you for allowing me to participate in the care of your patient. 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) Coding Level of Care Code Off vis,est,level 3 Diagnoses Paroxysmal atrial fibrillation I48.0 Essential hypertension I10 Hypertension type: essential hypertension Pure hypercholesterolemia E78.00; E78.0 Hyperlipidemia type: pure hypercholesterolemia Coding Level of Care Code Off vis,est,level 3 Diagnoses Paroxysmal atrial fibrillation I48.0 Essential hypertension I10 Hypertension type: essential hypertension Pure hypercholesterolemia E78.00; E78.0 Hyperlipidemia type: pure hypercholesterolemia 04/10/18 1003 <Electronically signed by Vladimir Sears MD> Date Vladimir Sears MD Cosigner Signature: Date (if applicable) CC: Patricia Mcgowan MD CBC-COMPLETE BLOOD CNT Collected: 01/11/2018 Status: F Source: [place] NO DIFF 9:58 AM [facility] REPOSITORY Order Comment: Order Date: 01/11/18 Order Info: 32663-6 - CBC Order Info: 75491-2 - SED TYPE CODE TESTS RESULT OUT OF RANGE REFERENCE UNITS LAB L100.1000 4.4-11.0 K/mm3 Normal WBC 8.2 LAB L100.1200 4.6-6.2 M/mm3 Normal RBC 4.84 LAB L100.1300 13.0-16.5 g/dl Normal HGB 14.9 LAB L100.1400 40-54 % Normal HCT 44.6 LAB L100.1500 80-94 fL Normal MCV 92.1 LAB L100.1600 27.0-32.0 pg Normal MCH 30.8 LAB L100.1700 32-36 g/gl Normal MCHC 33.4 LAB L100.1810 11.6-14.6 % Normal RDW CV 13.7 LAB L100.1820 35.1-43.9 fl High RDW SD 45.3 LAB L100.1900 150-450 K/mm3 Normal PLT 274 LAB L100.2000 6.2-12.0 fl Normal MPV 10.2 Performed By: #### L100.0500, L501.9520, L506.0400, L101.9900, L503.0105 #### [place] [facility] [address], [address] THYROID STIM HORMONE Collected: 01/11/2018 Status: F Source: [place] (TSH) 9:58 AM [facility] REPOSITORY Order Comment: Order Date: 01/11/18 Order Info: 3015-3 - TSH Order Info: 2498-02 - FE Order Info: 2276-02 - FANNY Order Info: 3023-7 - T4F Has Patient had X-rays with Contrast this admission? N TYPE CODE TESTS RESULT OUT OF RANGE REFERENCE UNITS LAB L501.9520 0.358-3.74 uIU/mL Normal TSH 2.06 Performed By: #### L100.0500, L501.9520, L506.0400, L101.9900, L503.0105 #### [facility] [address] [place], [place], [address] T4 FREE DIRECT Collected: 01/11/2018 Status: F Source: [place] 9:58 AM [facility] REPOSITORY Order Comment: Order Date: 01/11/18 Order Info: 3 - TSH Order Info: 2498-02 - FE Order Info: 2276-02 - FANNY Order Info: 3023-7 - T4F Has Patient had X-rays with Contrast this admission? N TYPE CODE TESTS RESULT OUT OF RANGE REFERENCE UNITS LAB L506.0400 0.76-1.46 ng/dL Normal T4 FREE 1.18 DIRECT Performed By: #### L100.0500, L501.9520, L506.0400, L101.9900, L503.0105 #### [facility] [address] [place], [place], [address] ERYTHROCYTE SED RATE Collected: 01/11/2018 Status: F Source: [place] 9:58 AM [facility] REPOSITORY Order Comment: Order Date: 01/11/18 Order Info: 07862-9 - CBC Order Info: 48068-5 - SED TYPE CODE TESTS RESULT OUT OF RANGE REFERENCE UNITS LAB L102.0000 0-20 mm/hr High SED RATE 29 Performed By: #### L100.0500, L501.9520, L506.0400, L101.9900, L503.0105 #### [facility] [address] [place], [place], [address] VITAMIN B12 Collected: 01/11/2018 Status: F Source: [place] 9:58 AM [facility] REPOSITORY Order Comment: Order Date: 01/11/18 Order Info: 2132-9 - B12 Order Info: 21379-5 - VITD25 TYPE CODE TESTS RESULT OUT OF REFERENCE UNITS RANGE LAB L503.0105 211-911 pg/mL High Vitamin B12 956 Performed By: #### L100.0500, L501.9520, L506.0400, L101.9900, L503.0105 #### [facility] [address] [place], [address] TESTOSTERONE, TOTAL / Collected: 01/11/2018 Status: F Source: [place] FREE 9:58 AM [facility] REPOSITORY Order Comment: Order Date: 01/11/18 Order Info: 0024-1 - TESTF Has Patient had X-rays with Contrast this admission? N TYPE CODE TESTS RESULT OUT OF RANGE REFERENCE UNITS LAB L3100.5320 264-916 ng/dL Low 191 TESTOSTER,TO JESSICA Result Comment: Adult male reference interval is based on a population of healthy nonobese males (BMI <30) between 19 and 39 years old. Luca, et.al. JCEM 2017,102;3191-5807. PMID: 31472555. LAB L3100.5340 5.00-21.00 ng/dL TESTOSTER,FREE Normal 5.35 LAB L3100.5360 1.50-4.20 % TESTOSTER %FREE Normal 2.80 Result Comment: Performed at: - [facility] [address] [id number] Supervisor Stave Finishing: Vj Garcia PhD, Phone: [phone] Performed at: - [facility] [address] [id number] Supervisor Stave Finishing: Luis Antonio Courtney MD, Phone: [phone] Performed By: #### L3100.5310 #### [facility] (refer to report for specific site) refer to report for address and phone number SHOULDER MIN 2 VIEWS Observed: 01/11/2018 Status: F Source: [place] 9:54 AM [facility] REPOSITORY [facility] [address] [facility] [place] [address] Shoulder min 2 Views MR#: [id number] Acct: [id number] Name: KEVIN GRIFFITH Rep #: [id number] : 1945 M 72 From: Cory Jose MD PCP: Rito Marques MD Status: REG CLI Study: Shoulder min 2 Views Date of Exam: 01/11/18 Exam# [id number] Ordering Dr: Eduardo Marques MD STUDY: X-RAY - RIGHT SHOULDER REASON FOR EXAM: Male, 72 years old. Right shoulder pain. TECHNIQUE: 4 view(s) of the shoulder. COMPARISON: None. FINDINGS: Normal glenohumeral articulation. Normal acromioclavicular joint. Normal acromion. Normal humeral head and visualized proximal humerus. The soft tissue structures are unremarkable. Normal visualized pulmonary apex. RAD/Shoulder min 2 Views IMPRESSION: Normal x-ray examination of the shoulder. Electronically Signed: Cory Jose MD at 14:02 EST Tel [phone], Service support , CC: Rito Marques MD Interior Specialist: Signed WRIST MIN 3 VIEWS Observed: 01/08/2018 Status: F Source: [place] 10:13 AM [facility] REPOSITORY [facility] [address] [place] [address] Wrist min 3 Views MR#: [id number] Acct: [id number] Name: KEVIN GRIFFITH Rep #: [id number] : 1945 M 72 From: Nikki Bowman MD PCP: Rito Marques MD Status: REG CLI Study: Wrist min 3 Views Date of Exam: 01/08/18 Exam# [id number] Ordering Dr: Eduardo Marques MD XR Wrist Min 3 Views INDICATION: pt fell and broke wrist in September, pt still having pain COMPARISON: None TECHNIQUE: 3 views of the left wrist FINDINGS: There is an impacted and minimally angulated fracture of the left distal radius. The left distal ulna appears intact. There is normal alignment of the carpal bones. RAD/Wrist min 3 Views IMPRESSION: Mildly impacted and minimally angulated left distal radial fracture. at 0051 Reported and signed by: iNkki Bowman MD Electronically Signed: Nikki Bowman MD at 23:50 EST Tel , Service support , CC: Rito Marques MD Interior Specialist: Signed URINE DRUG SCREEN Collected: 01/04/2018 Status: F Source: [place] (VISTA) 10:02 AM [facility] REPOSITORY Order Comment: List of Drugs Taken or Suspected? UNK TYPE CODE TESTS RESULT OUT OF RANGE REFERENCE UNITS LAB L505.0075 TO BE Normal CONFIRMED Result Comment: CONFIRMATORY TESTING FOR ALL POSITIVE URINE DRUG SCREEN RESULTS WILL ONLY BE SENT OUT UPON PHYSICIAN ORDER. VISTA Urine Drug Screen methods provide only preliminary analytical test results. A more specific alternate chemical method must be used in order to obtain a confirmed analytical result. Gas chromatography/mass spectrometery (GC/MS) is the preferred confirmatory method. Clinical consideration and professional judgement should be applied to any drug of abuse test result, particularly when preliminary positive results are used. URINE TCA TESTING MUST BE ORDERED SEPARATELY. USE TEST MNEMONIC: [facility] LAB L505.5005 VISTA UDS PH 6 Normal LAB L505.5015 <1000 ng/mL AMPHETAMINES Normal NEGATIVE LAB L505.5025 < 200 ng/mL BARBITIURATES Normal NEGATIVE LAB L505.5035 < 200 ng/mL BENZODIAZIPINE Normal NEGATIVE LAB L505.5045 < 300 ng/mL COCAINE Normal NEGATIVE LAB L505.5055 < 500 ng/mL ECSTACY Normal NEGATIVE LAB L505.5065 < 300 ng/mL METHADONE Normal NEGATIVE LAB L505.5075 < 300 High ng/mL OPIATES POSITIVE LAB L505.5085 < 25 ng/mL PCP Normal NEGATIVE LAB L505.5095 < 50 ng/mL THC Normal NEGATIVE Performed By: #### L505.5000 #### [facility] [address] [place], [address] MISCELLANEOUS LAB Collected: 01/04/2018 Status: F Source: [place] PROCEDURE 10:02 AM [facility] REPOSITORY Order Comment: Test(s) Ordered: [id number] RUN LOWEST TEST TYPE CODE TESTS RESULT OUT OF RANGE REFERENCE UNITS LAB L801.1541 Normal [facility] LAB TEST Result Comment: [id number] 6+OXYCODONE-BUND (ng/mL) DRUG RESULT SCREEN CUTOFF ____ Amphetamines,Urine Negative ng/mL 1000 Amphetamine test includes Amphetamine and Methamphetamine. Barbiturates Negative ng/mL 200 Benzodiazepines Negative ng/mL 200 Cannabinoid Negative ng/mL 20 Cocaine (Metab) Negative ng/mL 300 Opiates POSITIVE ng/mL 300 Opiate test includes Codeine, Morphine, Hydromorphone, and Hydorcodone. Please Note Confirmation is performed by Mass Spectrometry Codeine Negative 300 Morphine Negative 300 Hydromorphone Negative 300 Hydrocodone Positive Hydrocodone Confirm 1080 ng/mL 300 Oxycodone/Oxymorphone,Urine Negative ng/mL 300 Test includes Oxydodone and Oxymorphone. TESTING PERFORMED AT [facility]. ORIGINAL REPORT ON FILE IN LAB CONTAINS ADDITIONAL TEST SITE INFORMATION. Performed By: #### L801.1541 #### [facility] [address] [place], [address] CBC-COMPLETE BLOOD CNT Collected: 12/20/2017 Status: F Source: [place] NO DIFF 10:28 AM [facility] REPOSITORY Order Comment: Order Date: 08/10/17 Order Info: [id number] - CBC TYPE CODE TESTS RESULT OUT OF RANGE REFERENCE UNITS LAB L100.1000 4.4-11.0 K/mm3 Normal WBC 5.7 LAB L100.1200 4.6-6.2 M/mm3 Normal RBC 4.95 LAB L100.1300 13.0-16.5 g/dl Normal HGB 15.3 LAB L100.1400 40-54 % Normal HCT 45.4 LAB L100.1500 80-94 fL Normal MCV 91.7 LAB L100.1600 27.0-32.0 pg Normal MCH 30.9 LAB L100.1700 32-36 g/gl Normal MCHC 33.7 LAB L100.1810 11.6-14.6 % Normal RDW CV 13.3 LAB L100.1820 35.1-43.9 fl Normal RDW SD 43.8 LAB L100.1900 150-450 K/mm3 Normal PLT 227 LAB L100.2000 6.2-12.0 fl Normal MPV 10.5 Performed By: #### L100.0500, L500.4050, L500.4100 #### [facility] [address] [place], [address] COMPREHENSIVE METABOLIC Collected: 12/20/2017 Status: F Source: [place] PROFIL 10:28 AM [facility] REPOSITORY Order Comment: Order Date: 08/10/17 Order Info: 0786-1 - CMP Order Info: 21786-0 - LIPID TYPE CODE TESTS RESULT OUT OF RANGE REFERENCE UNITS LAB L501.0100 70-110 mg/dL Low GLU 69 LAB L501.1000 7-18 mg/dL Normal BUN 16 LAB L501.1100 0.70-1.30 mg/dL Normal 0.95 CREAT,SERUM Result Comment: The validity of the calculated GFR AND GFRAA in patients over 70 years has not been determined. Clinical correlation is essential. LAB L501.1110 >60 mL/min Normal EST GFR 82 Result Comment: Non- GFR Calc LAB L501.1115 >60 mL/min Normal EST GFR - AA 100 Result Comment: GFR Calc LAB L501.1300 10-20 RATIO Normal BUN/CRE 16.8 LAB L501.1500 6.4-8.2 g/dL T Normal PROT 7.5 LAB L501.1800 3.2-5.0 g/dL Normal ALB 3.4 LAB L501.1950 2.2-4.2 g/dL Normal GLOB 4.1 LAB L501.2000 0.9-2.4 RATIO Low A/G 0.8 LAB L501.2200 8.5-10.1 mg/dL CA Normal 8.8 LAB L501.4100 15-37 U/L Normal AST 31 LAB L501.4305 45-117 U/L Normal ALK P 54 LAB L501.4405 16-61 U/L Normal ALT 41 Result Comment: Please note revised ALT reference range effective 2017. LAB L501.4600 0.20-1.00 mg/dL Normal T BILI 0.50 LAB L501.5300 136-145 mmol/L Normal NA 140 LAB L501.5600 3.5-5.1 mmol/L Normal K 3.9 LAB L501.5900 98-107 mmol/L Normal CL 103 LAB L501.6100 21.0-32.0 mmol/L Normal CO2 28.0 LAB L501.6200 5-15 Normal GAP 9 Performed By: #### L100.0500, L500.4050, L500.4100 #### [facility] [address] [place], [address] LIPID PROFILE Collected: 12/20/2017 Status: F Source: [place] 10:28 AM [facility] REPOSITORY Order Comment: Order Date: 08/10/17 Order Info: 0786-1 - CMP Order Info: 02413-3 - LIPID TYPE CODE TESTS RESULT OUT OF RANGE REFERENCE UNITS LAB L501.4900 200 mg/dL Normal CHOL 120 Result Comment: <200 mg/dL Desirable 200-240 mg/dL Borderline >240 mg/dL High Risk LAB L501.5000 mg/dL Normal TRIG 118 Result Comment: The drugs N-Acetylcysteine and Metamizole may falsely depress this assay. Serum Triglycerides Reference Interval Normal <150 mg/dL Borderline high 150 - 199 mg/dL High 200 - 499 mg/dL Very High > or = 500 mg/dL LAB L501.6400 mg/dL Low HDL 39 Result Comment: The drugs N-Acetylcysteine and Metamizole may falsely depress this assay. Reference Range HDL <40 mg/dL Low HDL Cholesterol HDL >or= 60 mg/dL High HDL Cholesterol LAB L501.6500 0-130 mg/dL Normal LDL 57 LAB L501.6600 5-40 mg/dL Normal VLDL 24 Performed By: #### L100.0500, L500.4050, L500.4100 #### [facility] [address] [place], [address] TESTOSTERONE, SERUM TOTAL Collected: 12/20/2017 Status: F Source: [place] 10:28 AM [facility] REPOSITORY Order Comment: Order Date: 10/18/16 Order Info: 2986-8 - LOIS TYPE CODE TESTS RESULT OUT OF REFERENCE UNITS RANGE LAB L509.3000 ng/dL Testosterone Normal 173.54 Result Comment: NORMAL REFERENCE RANGES MALE AGE <50 123.06 - 813.86 ng/dL MALE AGE >50 89.98 - 780.10 ng/dL FEMALE PREMENOPAUSE AGE 21 - 60 9.01 - 47.94 ng/dL FEMALE POSTMENOPAUSE AGE 45 - 89 <7.00 - 45.62 ng/dL REFERENCE RANGE AND METHODOLOGY CHANGED 11/08/2017 Performed By: #### L509.3000 #### [facility] [address] [place], [address] ALLERGIES ALLERGIES DATE TYPE / CODE NAME / CODE REACTION SEVERITY SOURCE 04/10/2018 Drug metformin/F0 Unknown Unknown [facility] Allergy/4160 [id number]([facility] 23208(SNOMED ORM) Repository CT) 04/10/2018 Drug metocloprami HYPER Unknown [facility] Allergy/4160 de/[id number] Hospital [address]82(SNOMED 8(RXNORM) Repository CT) 04/10/2018 Drug sitagliptin/ Unknown Unknown [facility] Allergy/4160 [id number]([facility] 23539(SNOMED XNORM) Repository CT) ENCOUNTERS ENCOUNTERS ADMIT/DISCHARGE ACCOUNT NUMBER ADMITTING ENCOUNTER LOCATION SOURCE CLASS 12/17/2018 [id number] Ambulatory [facility] ding:LAB.FUT Repository URE 12/12/2018 [id number] Ambulatory [facility] ding:MTLAB Repository 08/07/2018 [id number] Ambulatory [facility] Hospital ding:LAB Repository 07/12/2018 [id number] Ambulatory [facility] Repository 07/03/2018 [id number] Ambulatory [facility] ding:MTRAD Repository 05/31/2018 [id number] Ambulatory [facility] Repository 05/17/2018 [id number] Ambulatory [facility] Repository 05/03/2018 [id number] Ambulatory [facility] Repository 04/17/2018 [id number] Ambulatory [facility] WSDSRoom: 2B System WSDSBed: Repository [id number] 04/10/2018 [id number] Ambulatory [facility] Repository 04/10/2018/04/10/20 [id number] Ambulatory BMSBuilding: [place] [facility] Repository 04/06/2018 [id number] [facility] [place] [facility] 03/22/2018 [id number] Ambulatory [facility] Repository 01/11/2018 [id number] Ambulatory [facility] Hospital ding:MTLAB Repository 01/08/2018 [id number] Ambulatory [facility] ding:MTRAD Repository 01/04/2018 [id number] Ambulatory [facility] ding:LAB Repository 12/20/2017 [id number] Ambulatory [facility] ding:MFPLAB Repository PAYERS PAYERS ENCOUNTER GUARANTOR PAYER SUBSCRIBER SOURCE 12/17/2018 KEVIN A Primary KEVIN A [place] [id number] Insurance:MEDICARE YURICKDOB: [facility] A [facility] [id number] [place] Number: Repository [id number]: [phone] [id number] [phone] () Date:2018-12-04 12/17/2018 Secondary KEVIN A [place] Insurance:[facility] YURICKDOB: [facility] [id number] Hospital Number: Repository [id number] Date:7355-96-41[address], [place] [address]FQ: 12/17/2018 Tertiary NOT GIVENUNK [place] Insurance:SELF PAY [facility] Number: Effective Repository Date:2018-12-04 12/12/2018 KEVIN Ríos Primary KEVIN Scott [id number] Insurance:MEDICARE YURICKDOB: [facility] PART A [facility] [id number] [place] Number: Repository [id number]: 330 [id number] [phone] () Date:2018-12-12 12/12/2018 Secondary KEVIN A [place] Insurance:WPS YURICKDOB: [facility] [id number] Hospital Number: Repository [id number] Date:7724-92-08LW [address], [place] [address]TA: 12/12/2018 Tertiary NOT GIVENUNK [place] Insurance:SELF PAY [facility] Number: Effective Repository Date:2018-12-12 08/07/2018 KEVIN A Primary KEVIN [place] [id number] Insurance:MEDICARE YURICKDOB: [facility] PART A [facility] [id number] [place] Number: Repository [id number]: 330 [id number] () Date:2018-08-07 08/07/2018 Secondary KEVIN A [place] Insurance:WPS YURICKDOB: [facility] [id number] Hospital Number: Repository [id number] Date:2156-67-28VQ [address], [place] [address]VE: 08/07/2018 Tertiary NOT GIVENUNK [place] Insurance:SELF PAY [facility] Number: Effective Repository Date:2018-08-07 07/12/2018 Kevin A Primary Kevin Ríos [facility] YurickDOB: [facility]Pol [facility] [id number] icy Number: Effective [id number] Repository [facility] Date: [place], [place] [address]Smc: () 07/12/2018 Secondary Kevin A [facility] Insurance:MedicarePol YurickDOB: System icy Number: Effective [id number] Repository Date: 07/12/2018 Tertiary Kevin A [facility] Insurance: for YurickDOB: System LifePolicy Number: [id number] Repository Effective Date: 07/03/2018 KEVIN A Primary KEVIN A [place] [id number] Insurance:MEDICARE YURICKDOB: [facility] PART A [facility] [id number] [place] Number: Repository [id number]: [phone] [id number] () Date:2018-07-03 07/03/2018 Secondary KEVIN A [place] Insurance:[facility] YURICKDOB: [facility] [id number] Hospital Number: Repository [id number] Date:[id number] [address]TX: 07/03/2018 [facility] [place] Insurance:SELF PAY [facility] Number: Effective Repository Date:2018-07-03 05/31/2018 Kevin A Primary Kevin A [facility] YurickDOB: Insurance:MedicarePol YurickDOB: System [id number] icy Number: Effective [id number] Repository [facility] Date: [place], [place] [address]Hso: () 05/31/2018 Secondary Kevin A [facility] Insurance:MedicarePol YurickDOB: System icy Number: Effective [id number] Repository Date: 05/31/2018 Tertiary Kevin A [facility] Insurance: for YurickDOB: System LifePolicy Number: [id number] Repository Effective Date: 05/17/2018 Kevin A Primary Kevin A [facility] YurickDOB: Insurance:MedicarePol YurickDOB: System [id number] icy Number: Effective [id number] Repository Eliud Date[facility] [place], [place] [address]Eob: () 05/17/2018 Secondary Kevin A [facility] Insurance:MedicarePol YurickDOB: System icy Number: Effective [id number] Repository Date: 05/17/2018 Tertiary [facility]: for YurickDOB: System LifePolicy Number: [id number] Repository Effective Date: 05/03/2018 Kevin A Primary Kevin A [facility] YurickDOB: Insurance:MedicarePol YurickDOB: System icy Number: Effective [id number] Repository [facility] Date: [facility], [place] [address]Xtd: () 05/03/2018 Secondary Kevin A [facility] Insurance:MedicarePol YurickDOB: System icy Number: Effective [id number] Repository Date: 05/03/2018 Tertiary [facility] Insurance: for YurickDOB: System LifePolicy Number: [id number] Repository Effective Date: 04/17/2018 Kevin A Primary Kevin A [facility] YurickDOB: Insurance:MedicarePol YurickDOB: System icy Number: Effective [id number] Repository [facility] Date: [facility], [place] [address]Ggx: () 04/17/2018 Secondary Kevin A [facility] Insurance:MedicarePol YurickDOB: System icy Number: Effective [id number] Repository Date: 04/17/2018 Tertiary Kevin A [facility] Insurance: for YurickDOB: System LifePolicy Number: [id number] Repository Effective Date: 04/10/2018 Kevin A Primary Kevin A [facility] YurickDOB: Insurance:MedicarePol YurickDOB: System icy Number: Effective [id number] Repository Eliud Date: [facility], [place] [address]Yuk: (HP) 04/10/2018 Secondary Kevin A [facility] Insurance:MedicarePol YurickDOB: System icy Number: Effective [id number] Repository Date: 04/10/2018 Tertiary Kevin A [facility] Insurance: for YurickDOB: System LifePolicy Number: [id number] Repository Effective Date: 04/10/2018 KEVIN A Primary KEVIN A [place] [id number] Insurance:MEDICARE YURICKDOB: Community [facility] PART A [facility] [id number] [place] Number: Repository [id number]: [id number] [phone] Date:2017-10-30 () 04/10/2018 Secondary KEVIN A [place] Insurance:WPS [facility] [id number] Hospital Number: Repository [id number] Date:4695-25-39TW [address], [place] [address]CU: 04/10/2018 Tertiary NOT GIVENUNK [place] Insurance:SELF PAY [facility] Number: Effective Repository Date:2018-04-10 04/06/2018 Kevin A Primary Kevin A [place] [id number] Insurance:MEDICARE YurickDOB: Community [facility] PART A [facility] [id number] [place] Number: Repository [id number]: [id number] [phone] Date:2018-04-06 () 04/06/2018 Secondary Kevin A [place] Insurance:WPS YurickDOB: [facility] [id number] Hospital Number: Repository [id number] Date:7208-17-69RT [address], [place] [address]SY: 04/06/2018 Tertiary NOT GIVENUNK [place] Insurance:SELF PAY [facility] Number: Effective Repository Date:2018-04-06 03/22/2018 Kevin A Primary Kevin A [facility] YurickDOB: Insurance:MedicarePol YurickDOB: System [id number] icy Number: Effective [id number] Repository Eliud Date: [place], [place] [address]Qkv: () 03/22/2018 Secondary Kevin [facility] Insurance:MedicarePol YurickDOB: System icy Number: Effective [id number] Repository Date: 01/11/2018 Kevin A Primary Kevin A [place] [id number] Insurance:MEDICARE YurickDOB: Community [facility] PART A [facility] [id number] [place] Number: Repository [address]Vfs: [id number] [phone] Date:2018-01-11 () 01/11/2018 Secondary Kevin A [place] Insurance:WPS YurickDOB: [facility] [id number] Hospital Number: Repository [id number] Date:3269-89-63VT [address], [place] [address]KY: 01/11/2018 Tertiary NOT GIVENUNK [place] Insurance:SELF PAY [facility] Number: Effective Repository Date:2018-01-11 01/08/2018 Kevin A Primary Kevin A [place] [id number] Insurance:MEDICARE YurickDOB: Community [facility] PART A [facility] [id number] [place] Number: Repository [id number]: [id number] [phone] Date:2018-01-08 () 01/08/2018 Secondary Kevin A [place] Insurance:WPS YurickDOB: [facility] [id number] Hospital Number: Repository [id number] Date:6627-55-60ZF [address], [place] [address]ZA: 01/08/2018 Tertiary NOT GIVENUNK [place] Insurance:SELF PAY [facility] Number: Effective Repository Date:2018-01-08 01/04/2018 Kevin A Primary Kevin A [place] [id number] Insurance:MEDICARE YurickDOB: Community [facility] PART A [facility] [id number] [place] Number: Repository [id number]: 330 [id number] [phone] () Date:2018-01-04 01/04/2018 Secondary Kevin A [place] Insurance:WPS ANEUDY VelezB: Community [facility] [id number] Hospital Number: Repository [id number] Date:7537-65-94CP [facility] [place] [address]FO: 01/04/2018 Tertiary NOT GIVENUNK [place] Insurance:SELF PAY [facility] Number: Effective Repository Date:2018-01-04 12/20/2017 Kevin A Primary Kevin A [place] [id number] Insurance:MEDICARE YurickDOB: Community [facility] PART A [facility] [id number] Number: Repository [id number]: 330 [id number] [phone] () Date:2017-12-20 12/20/2017 Secondary Kevin A [place] Insurance:S ANEUDY VelezB: [facility] [id number] Hospital Number: Repository [id number] Date:0488-18-56MG [address], [place] [address]SM: 12/20/2017 Tertiary NOT GIVENUNK [place] Insurance:SELF PAY [facility] Number: Effective Repository Date:2017-12-20
== END ==
PROVIDERS: Family Provider Family Medicine; PCP Family Medicine; Referring Provider Nurse Practitioner Family; Visit Provider Nurse Practitioner Family
DX: R35.0 Frequency of micturition (principal)
CPT/HCPCS: 36415; 80053; 85025

== ENCOUNTER → 2018-12-17 15:47 | Outpatient (CLI) | payer MEDICARE, OTHER, SELFPAY ==
[2018-04-10 09:19] VITALS: BMI 36.8
[2018-12-17 17:48] LABS: Hemoglobin A1c 8.5 % (4.2-6.3)
[2018-12-17 17:59] LABS: Cholesterol 149 mg/dL (200); High Density Lipoprotein 37 mg/dL; Triglycerides 236 mg/dL; Very Low Density Lipoprotein 47 mg/dL (5-40)
== END ==
PROVIDERS: Family Provider Family Medicine; PCP Family Medicine; Visit Provider Specialist
DX: E11.9 Type 2 diabetes mellitus without complications (principal); Z96.652 Presence of left artificial knee joint; I10 Essential (primary) hypertension
CPT/HCPCS: 36415; 80061; 83036

== ENCOUNTER → 2018-12-20 10:16 | Outpatient (CLI) | payer MEDICARE, OTHER, SELFPAY ==
[2018-04-10 09:19] VITALS: BMI 36.8
[2018-12-20 12:37] LABS: Microalbumin:Creatinine Ratio 23.6 mg/g CRE (<30 mg/g CRE)
== END ==
PROVIDERS: Family Provider Family Medicine; PCP Family Medicine; Visit Provider Family Medicine
DX: E11.9 Type 2 diabetes mellitus without complications (principal); I10 Essential (primary) hypertension; Z79.4 Long term (current) use of insulin
CPT/HCPCS: 82043; 82570

== ENCOUNTER 2019-04-05 16:59 | Emergency (ER) | payer MEDICARE, OTHER, SELFPAY ==
[2019-04-05 17:00] VITALS: BP 156/73; PULSE 79; RESP 16; TEMP 36.7; O2SAT 96; BMI 38.2
[2019-04-05 17:10] LABS: Bedside Glucose 109 mg/dL (70-110)
--- NOTE | 2019-04-05 17:12 | EKG12_ITS ---
Test Reason : SYNCOPE Blood Pressure : / mmHG Vent. Rate : 085 BPM Atrial Rate : 085 BPM P-R Int : 140 ms QRS Dur : 096 ms QT Int : 362 ms P-R-T Axes : 051 056 014 degrees QTc Int : 430 ms Sinus rhythm with Premature atrial complexes Otherwise normal ECG Confirmed by VITO GARZA, DAVEY ([id number]), photography editor EDNA SAEED ([id number]) on 04/08/2019 4:14:26 PM Referred By: KARL Confirmed By:DAVEY PADRON MD
--- NOTE | 2019-04-05 17:21 | ED.VISSUMM ---
- ER Visit Summary Date of Service: 04/05/19 Chief Complaint: Hypoglycemia History of Present Illness: The patient is a 73 M who presents with decreased mental status and was found to have a blood sugar in the 20s. He is now on 09 and lucid and coherent he did feel weak and then he had a period where he did not remember what happened. He tells me he has not eaten much today but continues to give himself insulin as per prescription. He denies any chest pain shortness of breath fever chills abdominal pain nausea vomiting or diarrhea. Physical Examination: Not appear in acute distress. He is lucid coherent. He is obese Moist mucous membranes, no obvious facial deformity No C-spine tenderness supple neck. Regular rate and rhythm without any obvious murmurs Clear lungs bilaterally speaking in full sentences without any obvious respiratory distress Abdomen soft and nontender no guarding or rebound Moves all extremities without any difficulty or pain. Skin does not show any obvious rashes or lesions, no trauma. Alert oriented ?3 with no gross focal deficit Emergency Department Course and Treatment: We will check his creatinine, we will give him food, we will observe him pending all these results being normal he will be discharged in stable condition Discharge stable condition Impression: [Hypoglycemia] This note was generated with Twitmusic dictation software. It may contain incorrect words, spelling, and punctuation that were not noted in review of the chart prior to signing ED Disposition - Plan for ED Patient: Disposition: Home or Assisted Living Instructions: ED Diabetes Hypoglycemia Oral Agent, ED Diabetes Hypoglycemia Insulin React Referrals: Patricia Mcgowan MD [Primary Care Provider] - 3-5 Days
[2019-04-05 18:07] LABS: ALB/GLOB Ratio 0.9 RATIO (0.9-2.4); AST(SGOT) 20 U/L (15-37); Alanine Aminotransfer ALT/SGPT 37 U/L (16-61); Albumin, Serum 3.4 g/dL (3.2-5.0); Alkaline Phosphatase 52 U/L (45-117); Anion Gap 8 (5-15); BUN 34 mg/dL (7-18); Chloride 106 mmol/L (98-107); Creatinine, Serum 1.26 mg/dL (0.70-1.30); EST Glomerular Filtration Rate 59 mL/min (>60); Est Glom Filt Rate - Afr Amer 72 mL/min (>60); Estimated Creatinine Clearance 54.78 ml/min; Globulin 3.8 g/dL (2.2-4.2); Glucose 73 mg/dL (74-106); Potassium 3.6 mmol/L (3.5-5.1); Protein, Total 7.2 g/dL (6.4-8.2); Sodium Level 142 mmol/L (136-145)
[2019-04-05 18:48] VITALS: BP 131/62; PULSE 88; RESP 16; O2SAT 96
[2019-04-05 18:56] LABS: Bedside Glucose 88 mg/dL (70-110)
== END 2019-04-05 18:49 | disposition home or self-care (01) ==
LOC: ED 17:51
PROVIDERS: Emergency Provider Emergency Medicine; Family Provider Family Medicine; PCP Family Medicine
DX: E11.649 Type 2 diabetes mellitus with hypoglycemia without coma (principal); E66.9 Obesity, unspecified; I10 Essential (primary) hypertension; E78.00 Pure hypercholesterolemia, unspecified; Z79.4 Long term (current) use of insulin; Z79.82 Long term (current) use of aspirin; Z79.84 Long term (current) use of oral hypoglycemic drugs; Z79.899 Other long term (current) drug therapy
CPT/HCPCS: 80053; 82962; 93005; 99284; J7030; A4216

== ENCOUNTER → 2019-05-14 | Outpatient (CLI) | payer MEDICARE, OTHER, SELFPAY ==
[2019-04-11 11:38] VITALS: BMI 37.2
--- NOTE | 2019-05-14 10:09 | MRI_ITS ---
STUDY: MRI LUMBAR SPINE WITHOUT CONTRAST REASON FOR EXAM: Male, 73 years old. Back pain. TECHNIQUE: Standardized fat and water weighted pulse sequences were obtained in the sagittal and axial planes. COMPARISON: None FINDINGS: T12-L1: Normal endplates. Normal disc height, hydration and morphology. Normal bilateral facet joints. Normal central canal and bilateral lateral recesses. Normal bilateral intervertebral neural foramina. Normal lumbar lordosis. There is no substantial scoliosis. Normal conus medullaris that terminates at the T12/L1 level. L1-2: Disc desiccation with relatively preserved disc space without significant spinal canal narrowing or foraminal narrowing. L2-3: Disc space loss and endplate degenerative changes with mild circumferential disc bulge without significant spinal canal narrowing or foraminal narrowing. L3-4: Disc spacer in place with no significant spinal canal narrowing or foraminal narrowing. L4-5: Decreased disc place and endplate degenerative changes with broad-based disc bulge and facet arthropathy resulting in mild bilateral foraminal narrowing. L5-S1: Degenerative disc changes at this level with minimal disc space loss with compounding facet arthropathy and ligamentum flavum hypertrophy resulting in mild bilateral foraminal narrowing. Normal visualized sacral ala. Normal visualized paraspinous soft tissue structures. MRI/Spine Lumbar (Routine) IMPRESSION: Multilevel degenerative changes as above with mild bilateral foraminal narrowing at L4-5 and L5/S1. Electronically Signed: Xiang Barton DO at 12:13 EDT , Service support ,
== END | disposition home or self-care (01) ==
PROVIDERS: Family Provider Family Medicine; PCP Family Medicine; Referring Provider Anesthesiology Pain Medicine; Visit Provider Anesthesiology Pain Medicine
DX: M54.9 Dorsalgia, unspecified (principal); M79.606 Pain in leg, unspecified
CPT/HCPCS: 72148

== ENCOUNTER → 2019-05-20 | Outpatient (CLI) | payer MEDICARE, OTHER, SELFPAY ==
[2019-04-11 11:38] VITALS: BMI 37.2
--- NOTE | 2019-05-20 13:53 | CT_ITS ---
STUDY: CT CHEST/THORAX WITHOUT CONTRAST REASON FOR EXAM: Male, 73 years old. Cough. RADIATION DOSAGE (If Supplied By Facility): CTDIvol = ( 19.98 ) mGy, DLP = ( 797.29 ) mGycm TECHNIQUE: Transaxial imaging was performed with the patient in prone position without the administration of intravenous contrast material. Multiplanar coronal and sagittal images were reformatted. Individualized dose optimization techniques were used for this CT. COMPARISON: PA and lateral chest x-ray July 03, 2018. FINDINGS: There is subsegmental atelectasis in the anterior basilar right lower lobe as well as minor subsegmental volume loss or scarring in the anterior periphery of the bilateral midlungs. There is no demonstrated pleural abnormality. Normal heart and pericardium. There are calcifications of the coronary arteries. There is a 1.7 x 1.0 x 1.65 cm right low pretracheal lymph node with a fatty hilus, consistent with benign etiology. A number of additional subcentimeter nonspecific mediastinal lymph nodes are also present. Normal hilar regions. Normal unenhanced pulmonary arteries. Normal aorta arch. There is very mild atherosclerotic calcific plaquing of the descending thoracoabdominal aorta. There are multi-level degenerative changes of the thoracic spine. There is a healing, mildly displaced fracture with callus formation at the lateral left eighth rib. There is diffuse decreased attenuation of the liver parenchyma compared to the spleen, consistent with fatty involution. A very small hiatal hernia is present. CT/Chest without Contrast IMPRESSION: 1. Subsegmental atelectasis in the anterior basilar right lower lobe. No pneumonic infiltrate or significant fibrotic scarring. 2. Healing lateral left eighth rib fracture. 3. Atherosclerotic vascular calcifications present. 4. Benign-appearing/nonspecific mediastinal lymph nodes, as described. 5. Hepatic steatosis. 6. Very small hiatal hernia. Electronically Signed: Mook Llanes MD at 18:59 EDT , Service support ,
== END | disposition home or self-care (01) ==
LOC: CT 13:52
PROVIDERS: Family Provider Family Medicine; PCP Family Medicine; Referring Provider Internal Medicine Pulmonary Disease; Visit Provider Internal Medicine Pulmonary Disease
DX: R05 Cough (principal); R06.00 Dyspnea, unspecified
CPT/HCPCS: 71250

== ENCOUNTER → 2019-07-24 | Outpatient (CLI) | payer MEDICARE, OTHER, SELFPAY ==
[2019-04-11 11:38] VITALS: BMI 37.2
[2019-07-24 12:56] LABS: AST(SGOT) 40 U/L (15-37); Alanine Aminotransfer ALT/SGPT 78 U/L (16-61); Anion Gap 5 (5-15); BUN 20 mg/dL (7-18); BUN/Creat Ratio 18.7 RATIO (10-20); Chloride 105 mmol/L (98-107); Cholesterol 142 mg/dL (200); Creatinine, Serum 1.07 mg/dL (0.70-1.30); EST Glomerular Filtration Rate 72 mL/min (>60); Est Glom Filt Rate - Afr Amer 87 mL/min (>60); Glucose 132 mg/dL (74-106); High Density Lipoprotein 42 mg/dL; Sodium Level 139 mmol/L (136-145); Thyroid Stim Hormone (TSH) 1.63 uIU/mL (0.358-3.74); Triglycerides 132 mg/dL; Very Low Density Lipoprotein 26 mg/dL (5-40)
[2019-07-24 13:01] LABS: Hemoglobin A1c 7.5 % (4.2-6.3)
[2019-07-24 13:20] LABS: Microalbumin,Random Urine 61.9 mg/L (NO RANGE EST.)
[2019-07-26 12:37] LABS: C-Peptide 0.7 ng/mL (1.1-4.4)
== END | disposition home or self-care (01) ==
LOC: MFPLAB 10:55
PROVIDERS: Family Provider Family Medicine; PCP Family Medicine; Referring Provider Family Medicine; Visit Provider Internal Medicine Endocrinology, Diabetes & Metabolism
DX: E11.65 Type 2 diabetes mellitus with hyperglycemia (principal); E78.2 Mixed hyperlipidemia; E04.9 Nontoxic goiter, unspecified
CPT/HCPCS: 36415; 80048; 80061; 82043; 82570; 83036; 84443; 84450; 84460; 84681

== ENCOUNTER → 2019-08-22 08:33 | Outpatient (CLI) | payer MEDICARE, OTHER, SELFPAY ==
[2019-04-11 11:38] VITALS: BMI 37.2
[2019-08-22 10:16] LABS: Hemoglobin A1c 7.5 % (4.2-6.3)
[2019-08-22 10:35] LABS: AST(SGOT) 25 U/L (15-37); Alanine Aminotransfer ALT/SGPT 63 U/L (16-61); Anion Gap 9 (5-15); BUN 17 mg/dL (7-18); BUN/Creat Ratio 18.2 RATIO (10-20); Calcium,Total 9.3 mg/dL (8.5-10.1); Chloride 105 mmol/L (98-107); Creatinine, Serum 0.93 mg/dL (0.70-1.30); EST Glomerular Filtration Rate 84 mL/min (>60); Est Glom Filt Rate - Afr Amer 102 mL/min (>60); Glucose 109 mg/dL (74-106); Potassium 4.1 mmol/L (3.5-5.1); Sodium Level 142 mmol/L (136-145)
== END ==
PROVIDERS: Family Provider Family Medicine; PCP Family Medicine; Referring Provider Family Medicine; Visit Provider Internal Medicine Endocrinology, Diabetes & Metabolism
DX: E11.65 Type 2 diabetes mellitus with hyperglycemia (principal)
CPT/HCPCS: 36415; 80048; 83036; 84450; 84460

== ENCOUNTER → 2020-01-01 12:02 | Outpatient (CLI) | payer MEDICARE, OTHER, SELFPAY ==
[2019-04-11 11:38] VITALS: BMI 37.2
--- NOTE | 2020-01-01 13:00 | SP.MBSS_ITS ---
PRIMARY / SECONDARY DIAGNOSIS: dysphagia (R13.10) REFERRING PHYSICIAN: Dr. Patricia Mcgowan MD CURRENT DIET: regular textures, thin liquids DENTITION: WFL MENTAL STATUS: WNL RESPIRATORY STATUS: O2 via room air REASON FOR REFERRAL: The Patient is a 74 year old male referred for a modified barium swallow (MBS) study to objectively assess the Patients oropharyngeal swallow function under fluoroscopy secondary to reported coughing during ingestion of thin liquids occurring over the past 6 months. MEDICAL HISTORY: Paroxysmal atrial fibrillation, premature atrial contraction, essential (primary) hypertension, hyperlipidemia, arthritis, chronic back problem status post spinal fusion, cataract, type 2 diabetes mellitus, obesity, history of left tennis elbow, history of skin cancer, status post total left knee replacement, PREVIOUS MODIFIED BARIUM SWALLOW STUDY: None ADDITIONAL OBJECTIVE ASSESSMENT RESULTS: None ASSESSMENT PARAMETERS: The Patient participated in a Modified Barium Swallow (MBS) study on 01/01/2020. This study was recorded in the lateral view and images were sent to PACs for storage. Scoring was completed through each trial using the 8- point Penetration-Aspiration Scale (PAS) and summarized via the Videofluoroscopic Dysphagia Scale (VDS) and the Bolus Residue Scale (BRS), with severity scoring through the Dysphagia Severity Rating Scale (DSRS) and the Swallowing Performance Scale (SPS), and recommended diet textures through the International Dysphagia Diet Standardisation Initiative (IDDSI) RESULTS OF THE EVALUATION: The Patient presents with mild oropharyngeal dysphagia (DSRS: 1; SPS: 3) with transient shallow penetration of thin liquids during sequential ingestion most likely attributed to primary presbyphagia. OBJECTIVE ASSESSMENT OF SWALLOW FUNCTION (QUANTITATIVE ? PER TRIAL): PENETRATION / ASPIRATION SCALE (OBANDO): 1 = does not enter airway 2 = enters airway/above vocal folds/ejected 3 = enters airway/above vocal folds/not ejected 4 = enters airway/contacts vocal folds/ejected 5 = enters airway/contacts vocal folds/not ejected 6 = enters airway/below vocal folds/ejected 7 = enters airway/below vocal folds/not ejected despite effort 8 = enters airway/below vocal folds/no effort PENETRATION / ASPIRATION SCALE (SCORE): Thin liquid - 5 mL tsp.: 1 Thin liquids via cup (sequential swallows): 2 Thin liquids via cup (single sip): 1 Thin liquids via cup (single sip): 1 Thin liquids via cup (single sip): 1 Pudding via spoon: 1 Regular textured cookie: 1 Thin liquids via straw (sequential swallows): 2 Thin liquids via straw (chin tuck): 1 Thin liquids via straw (chin tuck): 1 Thin liquids via straw (chin tuck): 1 OBJECTIVE ASSESSMENT OF SWALLOW FUNCTION (QUANTITATIVE ? AGGREGATE): VIDEOFLOROSCOPIC DYSPHAGIA SCALE (VDS): LIP CLOSURE: 0 (of 4) Intact BOLUS FORMATION: 0 (of 6) Intact MASTICATION: 0 (of 8) Intact APRAXIA: 0 (of 4.5) None TONGUE TO PALATE CONTACT: 0 (of 10) Intact PREMATURE BOLUS LOSS: 1.5 (of 4.5) <10% ORAL TRANSIT TIME: 0 (of 3) < 1.5s TRIGGERING OF PHARYNGEAL SWALLOW: 0 (of 4.5) Normal VALLECULAR RESIDUE: 2 (of 6) <10% LARYNGEAL ELEVATION: 0 (of 9) Normal PYRIFORM SINUS RESIDUE: 4.5 (of 13.5) <10% COATING OF PHARYNGEAL WALL: 0 (of 9) No PHARYNGEAL TRANSIT TIME: 0 (of 6) <1.0s ASPIRATION: 6 (of 12) Supraglottic penetration BOLUS RESIDUE SCALE (BRS): 2 (of 6) residue in valleculae OBJECTIVE ASSESSMENT OF SWALLOW FUNCTION (SEVERITY GRADING): DYSPHAGIA SEVERITY RATING SCALE (DSRS): 1 (within functional limits) SWALLOWING PERFORMANCE SCALE (SPS): 3 (mild) OBJECTIVE ASSESSMENT OF SWALLOW FUNCTION (QUALITATIVE): ORAL PREPARATORY PHASE: sufficient mastication rate and quality; sufficient anterior oral containment during oral manipulation; preserved management of breathing / bolus formation ORAL TRANSITIONAL PHASE: sufficient bolus transportation; no lingual discoordination (no tremor / undulations); fragmented swallowing (piecemeal deglutition); no bolus consolidation impairments; intermittent premature posterior bolus loss PHARYNGEAL PHASE: intermittent mild pharyngeal phase dyssynchrony contributing to intermittent shallow and transient penetration of thin liquids during sequential ingestion; appropriate hyolaryngeal excursion and laryngeal vestibule closure / pressure; sufficient / consistent laryngeal vestibule pressure generated to expel penetrated material; no signs of pharyngeal dysmotility; no signs of velopharyngeal impairments. ESOPHAGEAL PHASE: no obvious esophageal phase abnormalities observed. RESPONSE TO STRATEGIES: all deficits managed successfully with reduction in bolus rate / volume adjustments; slight improvement in pharyngeal phase synchrony with an anterior lean / chin forward and down position vs. execution of the chin tuck posture. INTERVENTION RECOMMENDATIONS AND CONSIDERATIONS: The Patient was able to comprehend information presented upon review and express recommended intake precautions (reduced bolus volume) to suggest high likelihood of compliance. No further skilled speech-language services warranted at this time targeting dysphagia. POST ASSESSMENT EDUCATION: Results and recommendations were discussed with the Patient immediately following MBS completion, with the Patient verbalizing understanding and agreement with all recommendations and education provided. DIET TEXTURE RECOMMENDATIONS: Will recommend a regular textured (IDDSI: 7), thin liquid diet (IDDSI: 0) diet RECOMMENDED COMPENSATORY STRATEGIES: Reduced bolus volume / rate of ingestion, seated upright with a forward / anterior lean during PO intake, remain upright for 30-60 minutes post meal (GERD precaution) IMAGE COUNT: [id number] Jose Hand M.A., CCC-GROUNDS FOREMAN, CBIS MBSImP Certified, LSVT Certified [facility] Speech-Language Pathology Department [email or web address]
== END ==
PROVIDERS: Family Provider Family Medicine; PCP Family Medicine; Referring Provider Family Medicine; Visit Provider Family Medicine
DX: R13.10 Dysphagia, unspecified (principal)
CPT/HCPCS: 76000; 92611

== ENCOUNTER → 2020-01-21 16:19 | Outpatient (CLI) | payer MEDICARE, OTHER, SELFPAY ==
[2019-04-11 11:38] VITALS: BMI 37.2
[2020-01-21 17:54] LABS: AST(SGOT) 22 U/L (15-37); Alanine Aminotransfer ALT/SGPT 67 U/L (16-61); Anion Gap 5 (5-15); BUN 29 mg/dL (7-18); BUN/Creat Ratio 26.1 RATIO (10-20); Calcium,Total 9.2 mg/dL (8.5-10.1); Chloride 105 mmol/L (98-107); Creatinine, Serum 1.11 mg/dL (0.70-1.30); EST Glomerular Filtration Rate 69 mL/min (>60); Est Glom Filt Rate - Afr Amer 83 mL/min (>60); Glucose 164 mg/dL (74-106); Potassium 4.1 mmol/L (3.5-5.1); Sodium Level 138 mmol/L (136-145)
[2020-01-21 17:58] LABS: Hemoglobin A1c 7.6 % (4.2-6.3)
== END ==
PROVIDERS: PCP Family Medicine; Referring Provider Family Medicine; Visit Provider Family Medicine
DX: E11.65 Type 2 diabetes mellitus with hyperglycemia (principal); I10 Essential (primary) hypertension
CPT/HCPCS: 36415; 80048; 83036; 84450; 84460

== ENCOUNTER → 2020-04-22 08:10 | Outpatient (CLI) | payer MEDICARE, OTHER, SELFPAY ==
[2019-04-11 11:38] VITALS: BMI 37.2
[2020-04-22 10:52] LABS: AST(SGOT) 24 U/L (15-37); Alanine Aminotransfer ALT/SGPT 54 U/L (16-61); Anion Gap 6 (5-15); BUN 21 mg/dL (7-18); BUN/Creat Ratio 19.1 RATIO (10-20); Chloride 104 mmol/L (98-107); Cholesterol 150 mg/dL (200); EST Glomerular Filtration Rate 69 mL/min (>60); Est Glom Filt Rate - Afr Amer 84 mL/min (>60); Glucose 217 mg/dL (74-106); High Density Lipoprotein 36 mg/dL; Potassium 4.2 mmol/L (3.5-5.1); Sodium Level 141 mmol/L (136-145); Triglycerides 162 mg/dL; Very Low Density Lipoprotein 32 mg/dL (5-40)
[2020-04-22 10:56] LABS: Hemoglobin A1c 7.2 % (3.8-5.6)
[2020-04-22 16:07] LABS: Microalbumin,Random Urine 17.4 mg/L (NO RANGE EST.)
== END ==
PROVIDERS: PCP Family Medicine; Visit Provider Internal Medicine Endocrinology, Diabetes & Metabolism
DX: E11.65 Type 2 diabetes mellitus with hyperglycemia (principal); I10 Essential (primary) hypertension; E78.2 Mixed hyperlipidemia
CPT/HCPCS: 36415; 80048; 80061; 82043; 82570; 83036; 84450; 84460

== ENCOUNTER → 2020-08-17 14:19 | Outpatient (CLI) | payer MEDICARE, OTHER, SELFPAY ==
[2019-04-11 11:38] VITALS: BMI 37.2
[2020-08-17 18:15] LABS: AST(SGOT) 20 U/L (15-37); Alanine Aminotransfer ALT/SGPT 52 U/L (16-61); Anion Gap 6 (5-15); BUN 25 mg/dL (7-18); BUN/Creat Ratio 23.4 RATIO (10-20); Calcium,Total 9.1 mg/dL (8.5-10.1); Chloride 107 mmol/L (98-107); Creatinine, Serum 1.07 mg/dL (0.70-1.30); EST Glomerular Filtration Rate 71 mL/min (>60); Est Glom Filt Rate - Afr Amer 86 mL/min (>60); Glucose 228 mg/dL (74-106); Potassium 3.8 mmol/L (3.5-5.1); Sodium Level 139 mmol/L (136-145)
[2020-08-17 18:23] LABS: Hemoglobin A1c 7.3 % (3.8-5.6)
== END ==
PROVIDERS: PCP Family Medicine; Visit Provider Internal Medicine Endocrinology, Diabetes & Metabolism
DX: E11.65 Type 2 diabetes mellitus with hyperglycemia (principal)
CPT/HCPCS: 36415; 80048; 83036; 84450; 84460

== ENCOUNTER → 2020-09-04 08:25 | Outpatient (CLI) | payer MEDICARE, OTHER, SELFPAY ==
[2019-04-11 11:38] VITALS: BMI 37.2
--- NOTE | 2020-09-04 08:28 | RAD_ITS ---
STUDY: X-RAY - PELVIS AND LEFT HIP REASON FOR EXAM: Male, 75 years old. left hip pain x 6 months, no injury TECHNIQUE: 3 views of the pelvis and hip. COMPARISON: None. FINDINGS: There is a non-specific bowel gas pattern. Normal visualized soft tissue structures. Normal bilateral iliac wings, sacroiliac joints and visualized sacrum. Normal bilateral superior and inferior pubic rami. Normal pubic symphysis. Normal bilateral ischial tuberosities. Normal visualized femoral head. Normal acetabulum. Normal hip joint. RAD/HIP, UNI W/ Pelvis 2-3 Views IMPRESSION: Normal x-ray examination of the pelvis and hip. Electronically Signed: Nando Quispe MD at 3:59 EDT , Service support ,
== END ==
PROVIDERS: PCP Family Medicine; Referring Provider Anesthesiology Pain Medicine; Visit Provider Anesthesiology Pain Medicine
DX: M25.552 Pain in left hip (principal)
CPT/HCPCS: 73502

== ENCOUNTER → 2020-10-21 09:10 | Outpatient (CLI) | payer MEDICARE, OTHER, SELFPAY ==
[2019-04-11 11:38] VITALS: BMI 37.2
--- NOTE | 2020-10-21 09:13 | RAD_ITS ---
STUDY: X-RAY CHEST REASON FOR EXAM: Male, 75 years old. ASTHMA, SOB, AFIB TECHNIQUE: PA and lateral views of the chest. COMPARISON: 07/03/2018 FINDINGS: The lungs are clear and expanded. There is no demonstrated pleural abnormality. Normal size heart. Normal mediastinum and javier. Normal visualized pulmonary arteries. Normal visualized aortic arch and descending thoracic aorta. Normal visualized thoracic spine. Normal visualized ribs, clavicles, and shoulders. There is no demonstrated abnormality of the visualized soft tissue structures of the upper abdomen. RAD/Chest PA and Lateral IMPRESSION: Normal x-ray examination of the chest. Electronically Signed: Nicholas Zeng MD at 17:09 EST Tel , Service support ,
== END ==
PROVIDERS: PCP Family Medicine; Referring Provider Internal Medicine Pulmonary Disease; Visit Provider Internal Medicine Pulmonary Disease
DX: R09.02 Hypoxemia (principal); J45.909 Unspecified asthma, uncomplicated; I48.91 Unspecified atrial fibrillation
CPT/HCPCS: 71046

== ENCOUNTER → 2020-12-14 08:07 | Outpatient (CLI) | payer MEDICARE, OTHER, SELFPAY ==
[2019-04-11 11:38] VITALS: BMI 37.2
[2020-12-14 10:03] LABS: AST(SGOT) 23 U/L (15-37); Alanine Aminotransfer ALT/SGPT 48 U/L (16-61); Anion Gap 7 (5-15); BUN 18 mg/dL (7-18); BUN/Creat Ratio 16.4 RATIO (10-20); Calcium,Total 9.1 mg/dL (8.5-10.1); Chloride 103 mmol/L (98-107); EST Glomerular Filtration Rate 69 mL/min (>60); Est Glom Filt Rate - Afr Amer 84 mL/min (>60); Glucose 94 mg/dL (74-106); Potassium 3.8 mmol/L (3.5-5.1); Sodium Level 140 mmol/L (136-145)
== END ==
PROVIDERS: PCP Family Medicine
DX: E11.65 Type 2 diabetes mellitus with hyperglycemia (principal)
CPT/HCPCS: 80048; 83036; 84450; 84460

== ENCOUNTER → 2021-01-06 14:07 | Outpatient (CLI) | payer MEDICARE, OTHER, SELFPAY ==
[2019-04-11 11:38] VITALS: BMI 37.2
[2021-01-06 15:12] LABS: Vista UDS pH Range 5
[2021-01-06 15:24] LABS: Amphetamine Urine VISTA NEGATIVE (<1000 ng/mL); Barbiturate Urine VISTA NEGATIVE (< 200 ng/mL); Benzodiazepine Urine VISTA NEGATIVE (< 200 ng/mL); Cocaine Urine VISTA NEGATIVE (< 300 ng/mL); Ecstacy Urine VISTA NEGATIVE (< 500 ng/mL); Methadone Urine VISTA NEGATIVE (< 300 ng/mL); PCP Urine VISTA NEGATIVE (< 25 ng/mL); THC Urine VISTA NEGATIVE (< 50 ng/mL)
== END ==
PROVIDERS: PCP Family Medicine; Referring Provider Anesthesiology Pain Medicine; Visit Provider Anesthesiology Pain Medicine
DX: F11.20 Opioid dependence, uncomplicated (principal)
CPT/HCPCS: 80307

== ENCOUNTER → 2021-03-18 06:34 | Outpatient (CLI) | payer MEDICARE, OTHER, SELFPAY ==
[2019-04-11 11:38] VITALS: BMI 37.2
--- NOTE | 2021-03-18 07:14 | MRI_ITS ---
STUDY: MRI LUMBAR SPINE WITHOUT CONTRAST REASON FOR EXAM: Male, 75 years old. LUMBAR STENOSIS WITH NEUROGENIC CLAUDICATION TECHNIQUE: Standardized fat and water weighted pulse sequences were obtained in the sagittal and axial planes. COMPARISON: 05/14/2019 FINDINGS: T12-L1: Normal endplates. Normal disc height, hydration and morphology. Normal bilateral facet joints. Normal central canal and bilateral lateral recesses. Normal bilateral intervertebral neural foramina. Normal lumbar lordosis. Mild levoscoliosis centered at L2. Normal conus medullaris that terminates at the T12. L1-2: No change in the mild bilobed disc protrusion which produces mild spinal stenosis and mild bilateral neural foraminal stenosis. L2-3: Mild bilateral facet hypertrophy and ligamentum flavum hypertrophy. No change in the moderate bilobed disc protrusion asymmetric to the right in right foraminal protrusion which produces moderate spinal stenosis, moderate bilateral lateral recess stenosis with abutment of the L3 nerve roots bilaterally, moderate right neural foraminal stenosis with abutment of the right L2 nerve root laterally and mild left neural foraminal stenosis. L3-4: Status post discectomy and interbody fusion with anatomic alignment and no spinal stenosis or neural foraminal stenosis. L4-5: Moderate bilateral facet hypertrophy and ligament flavum hypertrophy. No change in the 2 mm retrolisthesis of L4 on L5 with a mild broad disc protrusion which produces moderate spinal stenosis with moderate bilateral lateral recess stenosis with abutment of the L5 nerve roots bilaterally and moderate bilateral neural foraminal stenosis with abutment of the exiting L4 nerve roots bilaterally. L5-S1: Severe bilateral facet hypertrophy with fluid in the facet joints consistent with instability and moderate ligament flavum hypertrophy. No change in the 2 mm of anterolisthesis of L5 on S1 with a moderate broad disc protrusion which produces moderate spinal stenosis with moderate bilateral lateral recess stenosis with abutment of the S1 nerve roots bilaterally and moderate bilateral neural foraminal stenosis with abutment of the exiting L5 nerve roots bilaterally. Normal visualized sacral ala. Normal visualized paraspinous soft tissue structures. MRI/Spine Lumbar (Routine) IMPRESSION: No change from 05/14/2019. Electronically Signed: Nicholas Zeng MD at 10:40 EDT Tel , Service support ,
--- NOTE | 2021-03-18 08:46 | RAD_ITS ---
STUDY: X-RAY - LUMBAR SPINE REASON FOR EXAM: Male, 75 years old. LUMBAR STENOSIS TECHNIQUE: 4 view(s) of the lumbar spine were obtained. COMPARISON: None FINDINGS: Normal lumbar lordosis. Mild levoscoliosis centered at L2/L3. Disc space prosthesis at L3/L4 with anatomic alignment. 5 mm of anterolisthesis of L5 on S1. This is unchanged on the flexion and extension views. There is multilevel endplate spondylosis of the lumbar vertebrae. There is multi-level degenerative disc disease with multi-level disc space narrowing. The soft tissue structures are unremarkable. RAD/L/S Spine Min 4 Views IMPRESSION: 1. Status post discectomy and interbody fusion at L3/L4 with anatomic alignment. 2. Mild levoscoliosis with diffuse degenerative disc disease with 5 mm of anterolisthesis of L5 on S1 which is unchanged on the flexion and extension views. Electronically Signed: Nicholas Zeng MD at 10:00 EDT Tel , Service support ,
[2021-03-18 10:10] LABS: Hemoglobin A1c 7.2 % (3.8-5.6)
[2021-03-18 10:23] LABS: AST(SGOT) 18 U/L (15-37); Alanine Aminotransfer ALT/SGPT 47 U/L (16-61); Anion Gap 4 (5-15); BUN 21 mg/dL (7-18); BUN/Creat Ratio 18.3 RATIO (10-20); Calcium,Total 9.2 mg/dL (8.5-10.1); Chloride 107 mmol/L (98-107); Cholesterol 136 mg/dL (200); Creatinine, Serum 1.15 mg/dL (0.70-1.30); EST Glomerular Filtration Rate 66 mL/min (>60); Est Glom Filt Rate - Afr Amer 79 mL/min (>60); Glucose 99 mg/dL (74-106); High Density Lipoprotein 47 mg/dL; Sodium Level 142 mmol/L (136-145); Triglycerides 132 mg/dL; Very Low Density Lipoprotein 26 mg/dL (5-40)
== END ==
PROVIDERS: Internal Medicine Endocrinology, Diabetes & Metabolism; PCP Family Medicine; Referring Provider Neurological Surgery; Visit Provider Neurological Surgery
DX: M48.062 Spinal stenosis, lumbar region with neurogenic claudication (principal); E11.65 Type 2 diabetes mellitus with hyperglycemia; E78.2 Mixed hyperlipidemia
CPT/HCPCS: 36415; 72110; 72148; 80048; 80061; 82043; 82570; 83036; 84450; 84460

== ENCOUNTER → 2021-07-07 09:34 | Outpatient (CLI) | payer MEDICARE, OTHER, SELFPAY ==
[2021-06-22 11:53] VITALS: BMI 37.2
[2021-07-07 10:49] LABS: Hemoglobin A1c 6.4 % (3.8-5.6)
[2021-07-07 10:59] LABS: AST(SGOT) 19 U/L (15-37); Alanine Aminotransfer ALT/SGPT 50 U/L (16-61); Anion Gap 8 (5-15); BUN 22 mg/dL (7-18); BUN/Creat Ratio 21.2 RATIO (10-20); Chloride 102 mmol/L (98-107); Creatinine, Serum 1.04 mg/dL (0.70-1.30); EST Glomerular Filtration Rate 74 mL/min (>60); Est Glom Filt Rate - Afr Amer 89 mL/min (>60); Glucose 210 mg/dL (74-106); Sodium Level 137 mmol/L (136-145)
== END ==
PROVIDERS: PCP Family Medicine; Referring Provider Family Medicine; Visit Provider Internal Medicine Endocrinology, Diabetes & Metabolism
DX: I10 Essential (primary) hypertension (principal); E11.65 Type 2 diabetes mellitus with hyperglycemia
CPT/HCPCS: 36415; 80048; 83036; 84450; 84460

== ENCOUNTER → 2021-07-07 09:52 | Outpatient (CLI) | payer MEDICARE, OTHER, SELFPAY ==
[2021-04-12 08:44] VITALS: BMI 37.2
--- NOTE | 2021-07-07 09:55 | ECHOCS_ITS ---
Reason For Study: RBBB Procedure This was a 2D Doppler, Color Flow transthoracic echocardiogram. The study was technically difficult. Contrast injection was performed. Exam performed in department. Left Ventricle Normal LV size. Left ventricular systolic function is normal. The estimated ejection fraction is 65 %. Stage 1 diastolic dysfunction. No regional wall motion abnormalities noted. Right Ventricle Normal RV size. Normal systolic function. Atria Normal left atrium. Normal right atrium. Mitral Valve Normal mitral valve. Tricuspid Valve Normal tricuspid valve. Aortic Valve Trisinus/trileaflet aortic valve. Mild focal aortic valve calcification. Pulmonic Valve The pulmonic valve is not well visualized. Great Vessels Normal aortic root. The pulmonary artery is normal size. Normal inferior vena cava. Pericardium/Pleural No pericardial effusion. Medication 22 gauge I.V. with prn adaptor inserted into left arm. Diluted definity 3.0ml given slow IV push to enhance endocardial definition. MMode/2D Measurements & Calculations LVIDd: 4.6 cm IVSd: 0.92 cm Ao root diam: 3.8 cm LVIDs: 3.1 cm LVPWd: 0.94 cm RVDd: 3.8 cm FS: 32.3 % LAV(MOD-bp): 49.9 ml LVAd ap4: 33.9 cm2 LVAd ap2: 25.6 cm2 LAV(MOD-bp) Indexed: 21.0 ml/m2 LVLd ap4: 8.3 cm LVLd ap2: 8.0 cm LAV(MOD-sp2): 45.3 ml EDV(MOD-sp4): 117.9 ml EDV(MOD-sp2): 66.7 ml LAV(MOD-sp4): 51.0 ml EDV(sp4-el): 118.3 ml EDV(sp2-el): 69.6 ml LVAs ap4: 19.5 cm2 LVAs ap2: 14.4 cm2 LVLs ap4: 7.8 cm LVLs ap2: 6.5 cm ESV(MOD-sp4): 43.2 ml ESV(MOD-sp2): 25.9 ml ESV(sp4-el): 41.4 ml ESV(sp2-el): 27.2 ml EF(MOD-sp4): 63.3 % EF(MOD-sp2): 61.2 % EF(sp4-el): 65.0 % SV(MOD-sp4): 74.6 ml SV(MOD-sp2): 40.8 ml SV(sp4-el): 76.8 ml LA A4 area: 18.6 cm2 LA dimension(2D): 4.2 cm RA A4 area: 16.4 cm2 Time Measurements MV dec time: 0.22 sec Doppler Measurements & Calculations MV E max delfin: 80.3 cm/sec Lat Peak E' Delfin: 7.6 cm/sec Med Peak E' Delfin: 6.3 cm/sec MV A max delfin: 111.4 cm/sec E/E' lat: 10.6 E/E' med: 12.7 MV E/A: 0.72 Ao V2 max: 154.1 cm/sec LV V1 max: 101.3 cm/sec PA V2 max: 98.0 cm/sec Ao max P.5 mmHg LV V1 max P.1 mmHg ECHO/Echo Complete W/ Contrast Interpretation Summary Normal LV size. Left ventricular systolic function is normal. The estimated ejection fraction is 65 %. Stage 1 diastolic dysfunction. Contrast injection was performed. Ordering Physician: Ja Dong Referring Physician: TRICIA JOSE Performed By: Mihaela Olea, GISELLA, RVT
== END ==
PROVIDERS: PCP Family Medicine; Referring Provider Nurse Practitioner Family; Visit Provider Nurse Practitioner Family
DX: I48.0 Paroxysmal atrial fibrillation (principal); E11.65 Type 2 diabetes mellitus with hyperglycemia; I10 Essential (primary) hypertension
CPT/HCPCS: 36415; 80048; 83036; 84450; 84460; 93306; Q9957; A4216; C8929; J3490

== ENCOUNTER → 2021-07-28 09:42 | Outpatient (CLI) | payer MEDICARE, OTHER, SELFPAY ==
[2021-07-28 10:52] LABS: Amphetamine Urine VISTA NEGATIVE (<1000 ng/mL); Barbiturate Urine VISTA NEGATIVE (< 200 ng/mL); Benzodiazepine Urine VISTA NEGATIVE (< 200 ng/mL); Cocaine Urine VISTA NEGATIVE (< 300 ng/mL); Ecstacy Urine VISTA NEGATIVE (< 500 ng/mL); Methadone Urine VISTA NEGATIVE (< 300 ng/mL); PCP Urine VISTA NEGATIVE (< 25 ng/mL); THC Urine VISTA NEGATIVE (< 50 ng/mL); Vista UDS pH Range 6
== END ==
PROVIDERS: PCP Family Medicine; Referring Provider Anesthesiology Pain Medicine; Visit Provider Anesthesiology Pain Medicine
DX: F11.20 Opioid dependence, uncomplicated (principal)
CPT/HCPCS: 80307

== ENCOUNTER → 2021-11-15 12:22 | Outpatient (CLI) | payer MEDICARE, OTHER, SELFPAY ==
[2021-11-15 15:32] LABS: Hemoglobin A1c 6.6 % (3.8-5.6)
[2021-11-15 15:34] LABS: Anion Gap 7 (5-15); BUN 20 mg/dL (7-18); BUN/Creat Ratio 18.5 RATIO (10-20); Chloride 104 mmol/L (98-107); Creatinine, Serum 1.08 mg/dL (0.70-1.30); EST Glomerular Filtration Rate 70 mL/min (>60); Est Glom Filt Rate - Afr Amer 85 mL/min (>60); Glucose 148 mg/dL (74-106); Potassium 3.9 mmol/L (3.5-5.1); Sodium Level 140 mmol/L (136-145)
== END ==
PROVIDERS: PCP Family Medicine
DX: E11.65 Type 2 diabetes mellitus with hyperglycemia (principal)
CPT/HCPCS: 36415; 80048; 83036

== ENCOUNTER 2021-12-31 14:37 | Outpatient (CLI) | payer MEDICARE, OTHER, SELFPAY ==
--- NOTE | 2021-12-31 14:40 | RAD_ITS ---
STUDY: XR Chest 2 Views 12/31/2021 2:45 PM REASON FOR EXAM: Male, 76 years old. CHEST PAIN ASTHMA COMPARISON: 10/21/2020 TECHNIQUE: XR Chest 2 Views FINDINGS: There is no demonstrated pleural abnormality. Normal heart size. Normal mediastinum. Normal javier. Prominent appearing increased interstitial lung markings. Normal visualized pulmonary arteries. There is atherosclerotic calcification of the aortic arch with tortuosity. There are diffuse degenerative changes of the visualized thoracic spine. There is degenerative osteoarthritis of the bilateral shoulders. There is no demonstrated abnormality of the visualized soft tissue structures of the upper abdomen. RAD/Chest PA and Lateral IMPRESSION: There are no acute findings. Electronically Signed: Edin Luna MD at 15:52 EST ,
== END 2021-12-31 23:59 | disposition home or self-care (01) ==
LOC: MTRAD 14:39
PROVIDERS: PCP Family Medicine; Referring Provider Internal Medicine Pulmonary Disease; Visit Provider Internal Medicine Pulmonary Disease
DX: J45.909 Unspecified asthma, uncomplicated (principal)
CPT/HCPCS: 71046

== ENCOUNTER 2022-01-28 01:20 | Emergency (ER) | payer MEDICARE, OTHER, SELFPAY ==
[2022-01-28 01:22] VITALS: BP 148/95; PULSE 104; RESP 18; TEMP 36.4; O2SAT 95; BMI 399.4
[2022-01-28 01:26] VITALS: BP 148/95; PULSE 103; RESP 16; O2SAT 94
--- NOTE | 2022-01-28 01:53 | EKG12_ITS ---
Test Reason : PALPS Blood Pressure : / mmHG Vent. Rate : 096 BPM Atrial Rate : 096 BPM P-R Int : 144 ms QRS Dur : 130 ms QT Int : 382 ms P-R-T Axes : 060 080 027 degrees QTc Int : 482 ms Sinus rhythm with Premature atrial complexes Right bundle branch block Abnormal ECG Confirmed by JACOB GARZA, NING ([id number]), assistant film editor MARVIN ESPINAL ([id number]) on 01/28/2022 2:30:43 PM Referred By: CRISTINA Confirmed By:NING JAMES MD
--- NOTE | 2022-01-28 02:07 | EDS_ITS ---
HPI History of Present Illness Chief Complaint: Fatigue Informant: patient and spouse/S.O. Narrative Narrative: Patient presents with spouse for evaluation of fatigue with insomnia for the past 3 days. Only slept 2 hours because of increasing anxiety. Reports diagnosing confirmed with Parkinson's syndrome last month he has been on carbidopa levodopa for the past 3 months initially ramped up currently on initial dosing 3 times a day. Sleep apnea history with a CPAP at night with oxygen. Spouse states whenever he places on the last 3 days he gets anxious and takes it off. With his sleep apnea difficulty resting comfortably. In addition has been watching the war in [place] and has been more anxious. He denies homicidal or suicidal ideations. In addition states occasional racing heart. History of paroxysmal atrial fibrillation on aspirin, states has never been on any stronger anticoagulants. Prior similar symptoms: Yes PFSH [facility], [facility] Medical History Arthritis Back problem Cataract Essential (primary) hypertension HLD (hyperlipidemia) Obesity PAC (premature atrial contraction) Paroxysmal atrial fibrillation Type 2 diabetes mellitus Home Medications aspirin 81 mg tablet,delayed release 81 mg PO QDAY 04/06/18 [History Last Taken Unknown] insulin aspart U-100 100 unit/mL subcutaneous solution See Rx Instructions .ROUTE .COMPLEX 04/06/18 [History Last Taken Unknown] insulin detemir U-100 100 unit/mL subcutaneous solution See Rx Instructions .RO DRAKE .COMPLEX ml 04/06/18 [History Last Taken Unknown] metformin 750 mg tablet,extended release 24 hr 1,500 mg PO QHS tab 04/06/18 [History Last Taken Unknown] paroxetine HCl 10 mg tablet 10 mg PO QDAY 04/06/18 [History Last Taken Unknown] potassium chloride 20 mEq oral packet 20 meq PO QDAY 04/06/18 [History Last Taken Unknown] pravastatin 80 mg tablet 80 mg PO QDAY 04/06/18 [History Last Taken Unknown] saxagliptin 5 mg-metformin ER 1,000 mg tablet,extend release 24hr mp 1 tab PO QDAY tab 04/06/18 [History Last Taken Unknown] hydrochlorothiazide 12.5 mg tablet 12.5 mg PO DAILY 04/12/21 [History Last Taken Unknown] tamsulosin 0.4 mg capsule 0.4 mg PO DAILY 04/12/21 [History Last Taken Unknown] telmisartan 40 mg tablet 40 mg PO DAILY 04/12/21 [History Last Taken Unknown] alprazolam [Xanax] 0.5 mg PO QHS PRN #4 tab 01/28/22 [Rx Last Taken Unknown] Allergy/AdvReac Type Severity Reaction Status Date / Time metoclopramide [From Reglan] Allergy HYPER Verified 01/28/22 01:29 Family History Father Leukemia Surgical History History of left tennis elbow History of skin cancer History of total left knee replacement (TKR) Hx of spinal fusion Social History Smoking Status: Former smoker alcohol intake: never substance use type: does not use ROS ROS ED Constitutional Constitutional ED: Denies chills, fever(s) or sweats Eyes Eyes: Denies change in vision ENT ENT ED: Denies dysphagia or sore throat Cardiovascular Cardiovascular: Reports palpitations; Denies chest pain, leg edema or racing heartbeat Respiratory/Chest Respiratory/Chest: Denies cough, dyspnea or dyspnea on exertion Gastrointestinal Gastrointestinal: Denies abdominal pain, diarrhea, nausea or vomiting Genitourinary Genitourinary ED: Denies dysuria, hematuria or urinary frequency Musculoskeletal Musculoskeletal: Denies back pain, extremity pain or neck pain Integumentary Denies rash or wounds Neurologic Neurologic: Denies headache(s), paresthesias or weakness Psychiatric Psychiatric: Reports anxiety and other Details: Insomnia ; Denies suicidal ideation or suicidal thoughts EXAM Physical Exam Const Vital Signs: 01/28/22 01:22 01/28/22 01:26 01/28/22 01:27 Temperature 97.6 F L Temperature Source Temporal Pulse Rate 104 H 103 H Respiratory Rate 18 16 Respiratory Effort Normal Respiratory Pattern Normal Blood Pressure 148/95 H 148/95 H Blood Pressure Mean 112 112 Pulse Ox 95 94 Oxygen Delivery Method Room Air Room Air 01/28/22 02:11 Temperature Temperature Source Pulse Rate 96 Respiratory Rate 18 Respiratory Effort Respiratory Pattern Blood Pressure 158/89 H Blood Pressure Mean Pulse Ox 94 Oxygen Delivery Method Positive well nourished and well developed General Appearance ED: well developed and NAD HEENT Reports moist mucous membranes normocephalic and atraumatic Eyes PERRL, EOMs intact bilaterally and conjunctivae normal General Eye ED: Yes normal appearance of both eyes Neck no lymphadenopathy and supple General: Negative for tenderness Chest Wall Chest: Negative for tenderness Resp normal respiratory effort and normal air movement Effort and Inspection: symmetric chest movement; Negative for respiratory distress Cardio regular rate, regular rhythm and no murmurs Peripheral Pulses: pulses 2+ throughout GI normal to inspection, nondistended, normoactive bowel sounds and non-tender Palpation: Negative for guarding or rebound tenderness present Back/Spine no CVA tenderness and no thoracic nor lumbar tenderness Extremity normal to inspection General Extremety ED: Negative for edema or tenderness General Extremity: Negative for edema Neuro oriented x3 and no sensory deficits noted Sensorium / Orientation: awake and alert Psych mental status grossly normal Psych Narrative: Denies suicidal homicidal ideations Attitude: No agitated Skin no rashes or lesions noted and no wounds MDM MDM MDM Narrative Medical decision making narrative: Patient vital signs stable increasing anxiety with insomnia. No suicidal homicidal ideations. With palpitations EKG was obtained with a chronic right bundle branch block. Denies any other symptoms. I did evaluate his medications with side effects where his carbidopa levodopa, one of the adverse effect is insomnia. In addition with his stress from the diagnosis and watching the war, with him unable to wear his mask due to anxiety, I did discuss risk and benefits. Spouse present states would like to try Xanax. He is currently started on melatonin first dose this evening. Discussed can continue this, attempted to send to pharmacy for meds to bed however they were unable to fill directly. He was discharged with 1 tab to take his evening, spouse is driving. He is given a 4-day prescription to his pharmacy. He will discuss with his neurologist with side effects for other possible options if symptoms persist. All questions were answered. EKG Initial EKG: Attestation: I personally reviewed and interpreted this EKG as follows: Comments: Sinus rate of 96, PACs noted, no ST or T wave changes, right bundle branch block noted. Similar to previous. Discharge Plan Triage Chief Complaint: Fatigue ED Provider: Kevin Corey Dx/Rx/DC Orders Clinical Impression: Anxiety, Right bundle branch block (RBBB) on electrocardiogram (ECG), Parkinson's disease, MELISSA (obstructive sleep apnea), Palpitation, Insomnia Instructions: ED Anxiety Reaction, ED Palpitations Prescriptions: New alprazolam [Xanax] 0.5 mg tablet 0.5 mg PO QHS PRN (Reason: insomnia) Qty: 4 RF: 0 No Action potassium chloride 20 mEq packet 20 meq PO QDAY RF: 0 paroxetine HCl 10 mg tablet 10 mg PO QDAY RF: 0 metformin 750 mg tablet extended release 24 hr 1,500 mg PO QHS RF: 0 pravastatin 80 mg tablet 80 mg PO QDAY RF: 0 insulin detemir U-100 [Levemir U-100 Insulin] 100 unit/mL solution See Rx Instructions .ROUTE .COMPLEX RF: 0 saxagliptin-metformin [Kombiglyze XR] 5-1,000 mg tablet, ER multiphase 24 hr 1 tab PO QDAY RF: 0 aspirin [Adult Low Dose Aspirin] 81 mg tablet,delayed release (DR/EC) 81 mg PO QDAY RF: 0 insulin aspart U-100 [Novolog U-100 Insulin aspart] 100 unit/mL solution See Rx Instructions .ROUTE .COMPLEX RF: 0 hydrochlorothiazide 12.5 mg tablet 12.5 mg PO DAILY RF: 0 telmisartan 40 mg tablet 40 mg PO DAILY RF: 0 tamsulosin 0.4 mg capsule 0.4 mg PO DAILY RF: 0 Primary Care Provider: Ja Cooley Referrals: Patricia Mcgowan MD [STAFF PHYSICIAN] - 3-5 Days Activity Restrictions/Additional Instructions: EKG chronic right bundle branch block with palpitations. Discussed with your neurologist of your Parkinson's medications which can cause insomnia. Continue your melatonin, may try Xanax 1 dose at night only to help with symptoms if severe. Discussed with your doctor to continue this medication as long-term safety risks. Disposition Disposition: Home, Self Care Discharge Date/Time: 01/28/22 02:27
[2022-01-28 02:11] VITALS: BP 158/89; PULSE 96; RESP 18; O2SAT 94
[2022-01-28] MEDS: ALPRAZolam 0.5 MG Tablet PO (02:26)
== END 2022-01-28 02:27 | disposition home or self-care (01) ==
PROVIDERS: Emergency Provider Emergency Medicine; PCP Family Medicine; Visit Provider Emergency Medicine
DX: F41.9 Anxiety disorder, unspecified (principal); G20 Parkinson's disease; I48.0 Paroxysmal atrial fibrillation; E11.9 Type 2 diabetes mellitus without complications; Z79.4 Long term (current) use of insulin; I45.10 Unspecified right bundle-branch block; Z87.891 Personal history of nicotine dependence; G47.33 Obstructive sleep apnea (adult) (pediatric); I10 Essential (primary) hypertension; E78.5 Hyperlipidemia, unspecified; M19.90 Unspecified osteoarthritis, unspecified site; H26.9 Unspecified cataract; E66.9 Obesity, unspecified; Z79.82 Long term (current) use of aspirin; Z79.899 Other long term (current) drug therapy; Z85.828 Personal history of other malignant neoplasm of skin; I49.1 Atrial premature depolarization; R00.2 Palpitations
CPT/HCPCS: 93005; 99283

== ENCOUNTER 2022-03-10 12:11 | Outpatient (CLI) | payer MEDICARE, OTHER, SELFPAY ==
[2022-03-10 15:19] LABS: Hemoglobin A1c 6.5 % (3.8-5.6)
[2022-03-10 15:23] LABS: AST(SGOT) 21 U/L (15-37); Alanine Aminotransfer ALT/SGPT 21 U/L (16-61); Anion Gap 7 (5-15); BUN 28 mg/dL (7-18); BUN/Creat Ratio 24.3 RATIO (10-20); Calcium,Total 8.8 mg/dL (8.5-10.1); Chloride 105 mmol/L (98-107); Creatinine, Serum 1.15 mg/dL (0.70-1.30); EST Glomerular Filtration Rate 65 mL/min (>60); Est Glom Filt Rate - Afr Amer 79 mL/min (>60); Glucose 102 mg/dL (74-106); Potassium 3.5 mmol/L (3.5-5.1); Sodium Level 138 mmol/L (136-145)
== END 2022-03-10 23:59 | disposition home or self-care (01) ==
LOC: MFPLAB 12:13
PROVIDERS: PCP Family Medicine; Referring Provider Family Medicine; Visit Provider Internal Medicine Endocrinology, Diabetes & Metabolism
DX: E11.65 Type 2 diabetes mellitus with hyperglycemia (principal)
CPT/HCPCS: 36415; 80048; 83036; 84450; 84460

== ENCOUNTER → 2022-04-07 | Outpatient (CLI) | payer MEDICARE, OTHER, SELFPAY ==
[2022-04-07 13:14] LABS: Amphetamine Urine VISTA NEGATIVE (<1000 ng/mL); Barbiturate Urine VISTA NEGATIVE (< 200 ng/mL); Benzodiazepine Urine VISTA NEGATIVE (< 200 ng/mL); Cocaine Urine VISTA NEGATIVE (< 300 ng/mL); Ecstacy Urine VISTA NEGATIVE (< 500 ng/mL); Methadone Urine VISTA NEGATIVE (< 300 ng/mL); PCP Urine VISTA NEGATIVE (< 25 ng/mL); THC Urine VISTA NEGATIVE (< 50 ng/mL); Vista UDS pH Range 5
== END | disposition home or self-care (01) ==
LOC: LAB 12:06
PROVIDERS: PCP Family Medicine; Referring Provider Anesthesiology Pain Medicine; Visit Provider Anesthesiology Pain Medicine
DX: F11.20 Opioid dependence, uncomplicated (principal)
CPT/HCPCS: 80307

== ENCOUNTER → 2022-04-25 | Outpatient (CLI) | payer MEDICARE, OTHER, SELFPAY ==
[2022-04-25 13:01] LABS: Mucous, Urine 0 SEEN /hpf (<or=2+); Squamous Epithelial Cells - UA 0 SEEN /hpf (0-5)
[2022-04-25 15:32] LABS: Absolute Lymphocyte Count 3.24 X10^3/uL (0.83-4.51); Absolute Neutrophil Count 4.2 X10^3/uL (2.0-7.7); Basophil# 0.11 X10^3/uL; Basophil% 1.2 % (0-1); Eosinophil# 0.23 X10^3/uL; Eosinophils% 2.6 % (0-5); Hematocrit 43.5 % (40-54); Hemoglobin 14.6 g/dL (13.0-16.5); Lymphocyte # 3.24 X10^3/ul (0.83-4.51); Lymphocyte % 36.4 % (19-41); Mean Corp Hgb Conc 33.6 g/dL (32-36); Mean Corpuscular Hgb 31.3 pg (27.0-32.0); Mean Corpuscular Volume 93.3 fL (80-94); Mean Platelet Vol. 10.1 fl (6.2-12.0); Monocyte# 1.12 X10^3/uL; Monocyte% 12.6 % (0-10); NRBC Flagged by Analyzer 0 % (0-5); Neutrophil # 4.15 X10^3/uL (2.7-7.7); Neutrophil % 46.5 % (47-70); Platelet Count 264 K/mm3 (150-450); RBC Distribution Width CV 13.6 % (11.6-14.6); RBC Distribution Width SD 46.3 fl (35.1-43.9); Red Blood Count 4.66 M/mm3 (4.6-6.2); White Blood Count 8.9 K/mm3 (4.4-11.0)
[2022-04-25 16:16] LABS: Color, Urine Yellow (Yellow); Glucose, Dipstick Normal (Normal); Ketone-Dipstick 5 mg/dl (Negative); Leukocyte Esterase-Dipstick Negative /ul (Negative); Nitrite-Dipstick Negative (Negative); Occult Blood-Urine Negative /ul (Negative); Protein-Dipstick Negative (Negative); Urine Bilirubin Dipstick Negative (Negative); Urine Clarity Clear (Clear); Urine Urobilinogen 4 mg/dl (Normal)
[2022-04-25 16:24] LABS: Vitamin B12 1930 pg/mL (211-911); Vitamin D,25 Hydroxy 59.3 ng/mL
[2022-04-25 16:31] LABS: AST(SGOT) 17 U/L (15-37); Alanine Aminotransfer ALT/SGPT 25 U/L (16-61); Albumin, Serum 3.7 g/dL (3.2-5.0); Alkaline Phosphatase 62 U/L (45-117); Anion Gap 9 (5-15); BUN 21 mg/dL (7-18); BUN/Creat Ratio 19.8 RATIO (10-20); Bacteria RARE /hpf (None Seen); Calcium,Total 9.1 mg/dL (8.5-10.1); Chloride 103 mmol/L (98-107); Cholesterol 138 mg/dL (200); Creatinine, Serum 1.06 mg/dL (0.70-1.30); EST Glomerular Filtration Rate 72 mL/min (>60); Est Glom Filt Rate - Afr Amer 87 mL/min (>60); Globulin 3.6 g/dL (2.2-4.2); Glucose 168 mg/dL (74-106); High Density Lipoprotein 43 mg/dL; Potassium 3.9 mmol/L (3.5-5.1); Protein, Total 7.3 g/dL (6.4-8.2); Red Blood Cells-Urine 0-5 SEEN /hpf (0-5); Sodium Level 137 mmol/L (136-145); Thyroid Stim Hormone (TSH) 2.14 uIU/mL (0.358-3.74); Triglycerides 193 mg/dL; Very Low Density Lipoprotein 39 mg/dL (5-40); White Blood Cells 0-5 SEEN /hpf (0-5)
[2022-04-26 09:17] LABS: Hemoglobin A1c 6.6 % (3.8-5.6)
== END | disposition home or self-care (01) ==
PROVIDERS: PCP Family Medicine; Referring Provider Family Medicine; Visit Provider Family Medicine
DX: R73.09 Other abnormal glucose (principal); E11.59 Type 2 diabetes mellitus with other circulatory complications; E53.8 Deficiency of other specified B group vitamins; E55.9 Vitamin D deficiency, unspecified
CPT/HCPCS: 80053; 80061; 81001; 82306; 82607; 82746; 83036; 84443; 85025

== ENCOUNTER → 2022-05-16 | Outpatient (CLI) | payer MEDICARE, OTHER, SELFPAY ==
--- NOTE | 2022-05-16 13:49 | ART_ITS ---
Reason For Study: Decreased pedal pulses Procedure A bilateral lower extremity continuous wave Doppler with analog waveform analysis,segmental pressures,and ankle brachial indexes with exercise. Left Segmental Pressures Left posterior tibial artery = 143mmHg. Left dorsalis pedis artery = 153mmHg. Left digit = 135 mmHg. The left dorsalis pedis waveforms are triphasic. The left posterior tibial artery waveforms are triphasic. Right Segmental Pressures Right brachial= 132mmHg. Right posterior tibial artery = 143mmHg. Right dorsalis pedis artery = 144mmHg. Right digit = 146 mmHg. The right dorsalis pedis waveforms are triphasic. The right posterior tibial artery waveforms are triphasic. Indices The right ankle brachial index by the dorsalis pedis is 1.09. The right ankle brachial index by the posterior tibial artery is 1.08. The right digital-brachial index is 1.11. The left ankle brachial index by the dorsalis pedis is 1.16. The left ankle brachial index by the posterior tibial artery is 1.08. The left digital-brachial index is 1.02. VL/Lower Ext Art Exam w/ Exercise Interpretation Summary Triphasic Doppler waveforms are noted at ankle level bilaterally. Pulse-volume recordings appear satisfactory at all levels bilaterally. Resting ankle-brachial indices are norm al bilaterally. Digital-brachial indices are normal bilaterally. The patient was ambulated for 3 minutes, following which ankle pressures augmented bilaterally, a normal physiological response. There is no evidence of significant arterial occlusive in the lower extremities bilaterally. Ordering Physician: Ja Cooley Referring Physician: Ja Cooley Performed By: Kanchan Emery RVT
--- NOTE | 2022-05-16 13:49 | ECHOCS_ITS ---
Reason For Study: SOB Procedure This was a 2D Doppler, Color Flow transthoracic echocardiogram. The study was technically difficult. Contrast injection was performed. Exam performed in department. Left Ventricle Based upon the 2D echocardiographic and contrast enhanced images obtained there appears to be grossly normal left ventricular size, wall motion, and systolic function. The estimated ejection fraction is 65 %. Diastolic function is indeterminate. Right Ventricle Based upon the 2D echocardiographic images obtained there appears to be grossly normal right ventricular size and systolic function. Atria Normal left atrium. Normal right atrium. No doppler evidence for ASD. Mitral Valve There is no mitral annular calcification. The mitral valve chordae are thickened and/or calcified. Tricuspid Valve Normal tricuspid valve. Aortic Valve Trisinus/trileaflet aortic valve. Mild focal aortic valve calcification. Pulmonic Valve The pulmonic valve is not well visualized. Great Vessels Normal sized aortic root. Pericardium/Pleural No pericardial effusion. Medication 20 gauge I.V. with prn adaptor inserted into left arm. Diluted definity 2ml given slow IV push to enhance endocardial definition. MMode/2D Measurements & Calculations LVIDd: 4.6 cm IVSd: 1.4 cm Ao root diam: 3.0 cm LVIDs: 2.9 cm LVPWd: 1.5 cm FS: 37.2 % LAV(MOD-sp4): 37.3 ml LA A4 area: 14.9 cm2 RA A4 area: 14.6 cm2 Time Measurements MV dec time: 0.18 sec Doppler Measurements & Calculations MV E max delfin: 69.8 cm/sec Lat Peak E' Delfin: 8.1 cm/sec Med Peak E' Delfin: 4.3 cm/sec MV A max delfin: 103.5 cm/sec E/E' lat: 8.6 E/E' med: 16.1 MV E/A: 0.67 MV V2 max: 117.8 cm/sec MV P1/2t max delfin: 83.0 cm/sec Ao V2 max: 151.3 cm/sec MV max P.5 mmHg MV P1/2t: 90.3 msec Ao max P.2 mmHg MV V2 mean: 66.0 cm/sec MV dec slope: 269.3 cm/sec2 MV mean P.0 mmHg MV V2 VTI: 21.8 cm MVA(P1/2t): 2.4 cm2 LV V1 max: 102.7 cm/sec PA V2 max: 99.2 cm/sec LV V1 max P.2 mmHg ECHO/Echo Complete W/ Contrast Interpretation Summary The study was technically difficult. Contrast injection was performed. Based upon the 2D echocardiographic and contrast enhanced images obtained there appears to be grossly normal left ventricular size, wall motion, and systolic function. The estimated ejection fraction is 65 %. The mitral valve chordae are thickened and/or calcified. Mild focal aortic valve calcification. Diastolic function is indeterminate. Ordering Physician: Ja Cooley Referring Physician: Ja Cooley Performed By: Txe Cruz RCS
== END | disposition home or self-care (01) ==
PROVIDERS: PCP Family Medicine; Referring Provider Family Medicine; Visit Provider Family Medicine
DX: R09.89 Other specified symptoms and signs involving the circulatory and respiratory systems (principal); R06.02 Shortness of breath
CPT/HCPCS: 93306; 93924; Q9957; A4216; C8929

== ENCOUNTER → 2022-06-20 | Outpatient (CLI) | payer MEDICARE, OTHER, SELFPAY ==
[2022-06-20 15:12] LABS: AST(SGOT) 17 U/L (15-37); Alanine Aminotransfer ALT/SGPT 21 U/L (16-61); Anion Gap 6 (5-15); BUN 26 mg/dL (7-18); BUN/Creat Ratio 21.7 RATIO (10-20); Calcium,Total 8.8 mg/dL (8.5-10.1); Chloride 102 mmol/L (98-107); Cholesterol 140 mg/dL (200); EST Glomerular Filtration Rate 62 mL/min (>60); Est Glom Filt Rate - Afr Amer 75 mL/min (>60); Glucose 224 mg/dL (74-106); High Density Lipoprotein 47 mg/dL; Potassium 3.9 mmol/L (3.5-5.1); Sodium Level 137 mmol/L (136-145); Triglycerides 161 mg/dL; Very Low Density Lipoprotein 32 mg/dL (5-40)
[2022-06-20 15:17] LABS: Hemoglobin A1c 6.7 % (3.8-5.6)
== END | disposition home or self-care (01) ==
PROVIDERS: PCP Family Medicine; Referring Provider Internal Medicine Endocrinology, Diabetes & Metabolism; Visit Provider Internal Medicine Endocrinology, Diabetes & Metabolism
DX: E11.65 Type 2 diabetes mellitus with hyperglycemia (principal); I10 Essential (primary) hypertension; E78.2 Mixed hyperlipidemia
CPT/HCPCS: 36415; 80048; 80061; 82043; 82570; 83036; 84450; 84460

== ENCOUNTER → 2022-06-21 | Outpatient (CLI) | payer MEDICARE, OTHER, SELFPAY ==
[2022-06-21 18:16] LABS: Microalbumin,Random Urine 17.8 mg/L (NO RANGE EST.); Microalbumin:Creatinine Ratio 12.4 mg/g CRE (<30 mg/g CRE)
== END | disposition home or self-care (01) ==
LOC: MTLAB 14:50
PROVIDERS: PCP Family Medicine; Referring Provider Internal Medicine Endocrinology, Diabetes & Metabolism; Visit Provider Internal Medicine Endocrinology, Diabetes & Metabolism
DX: E11.65 Type 2 diabetes mellitus with hyperglycemia (principal); I10 Essential (primary) hypertension; E78.2 Mixed hyperlipidemia
CPT/HCPCS: 82043; 82570

== ENCOUNTER → 2022-08-01 | Outpatient (CLI) | payer MEDICARE, OTHER, SELFPAY ==
[2022-08-01 12:30] LABS: PSA,Total - Annual Screen 5.11 ng/mL (0.00-4.00)
== END | disposition home or self-care (01) ==
LOC: LAB 11:16
PROVIDERS: PCP Family Medicine; Visit Provider Registered Nurse
DX: Z12.5 Encounter for screening for malignant neoplasm of prostate (principal)
CPT/HCPCS: 36415; 84153; G0103

== ENCOUNTER → 2022-09-16 | Outpatient (CLI) | payer MEDICARE, OTHER, SELFPAY ==
--- NOTE | 2022-09-16 12:35 | RAD_ITS ---
STUDY: X-RAY - RIGHT KNEE REASON FOR EXAM: Male, 77 years old. PAIN TECHNIQUE: 3 view(s) of the knee. COMPARISON: None. FINDINGS: Status post right knee arthroplasty with normal articulation between femoral, tibial and patellar components. Soft tissues normal. Interval resolution of prepatellar soft tissue swelling. RAD/Knee 4 or More Views IMPRESSION: Right knee arthroplasty. Electronically Signed: Donnell Blanton MD, UMAIR at 13:25 EDT ,
[2022-09-16 15:33] LABS: AST(SGOT) 13 U/L (15-37); Alanine Aminotransfer ALT/SGPT 13 U/L (16-61); Anion Gap 8 (5-15); BUN 25 mg/dL (7-18); Calcium,Total 9.4 mg/dL (8.5-10.1); Chloride 105 mmol/L (98-107); Creatinine, Serum 1.04 mg/dL (0.70-1.30); EST Glomerular Filtration Rate 73 mL/min (>60); Est Glom Filt Rate - Afr Amer 89 mL/min (>60); Glucose 142 mg/dL (74-106); Hemoglobin A1c 6.5 % (3.8-5.6); Potassium 3.8 mmol/L (3.5-5.1); Sodium Level 137 mmol/L (136-145); Thyroid Stim Hormone (TSH) 1.71 uIU/mL (0.358-3.74)
== END | disposition home or self-care (01) ==
PROVIDERS: PCP Family Medicine; Referring Provider Internal Medicine Endocrinology, Diabetes & Metabolism; Visit Provider Internal Medicine Endocrinology, Diabetes & Metabolism
DX: E11.65 Type 2 diabetes mellitus with hyperglycemia (principal); E04.9 Nontoxic goiter, unspecified
CPT/HCPCS: 36415; 73564; 80048; 83036; 84443; 84450; 84460

== ENCOUNTER → 2023-01-04 | Outpatient (CLI) | payer MEDICARE, OTHER, SELFPAY ==
[2023-01-04 18:44] LABS: AST(SGOT) 16 U/L (15-37); Alanine Aminotransfer ALT/SGPT 12 U/L (16-61); Anion Gap 10 (5-15); BUN 24 mg/dL (7-18); BUN/Creat Ratio 25.1 RATIO (10-20); Calcium,Total 8.9 mg/dL (8.5-10.1); Chloride 106 mmol/L (98-107); Cholesterol 139 mg/dL (200); Creatinine, Serum 0.96 mg/dL (0.70-1.30); EST Glomerular Filtration Rate 81 mL/min (>60); Est Glom Filt Rate - Afr Amer 98 mL/min (>60); Glucose 55 mg/dL (74-106); High Density Lipoprotein 44 mg/dL; Potassium 3.9 mmol/L (3.5-5.1); Sodium Level 143 mmol/L (136-145); Triglycerides 133 mg/dL; Very Low Density Lipoprotein 27 mg/dL (5-40)
[2023-01-04 19:11] LABS: Hemoglobin A1c 6.3 % (3.8-5.6)
== END | disposition home or self-care (01) ==
PROVIDERS: PCP Family Medicine; Referring Provider Family Medicine; Visit Provider Internal Medicine Endocrinology, Diabetes & Metabolism
DX: E11.42 Type 2 diabetes mellitus with diabetic polyneuropathy (principal); I10 Essential (primary) hypertension
CPT/HCPCS: 36415; 80048; 80061; 83036; 84450; 84460

== ENCOUNTER 2023-02-11 12:45 | Emergency (ER) | payer MEDICARE, OTHER, SELFPAY ==
[2023-02-11 12:46] VITALS: BP 149/68; PULSE 82; RESP 18; TEMP 36.1; O2SAT 97; BMI 36.8
--- NOTE | 2023-02-11 13:06 | RAD_ITS ---
INDICATION: injury EXAMINATION/TECHNIQUE: X-RAY - RIGHT XR Ankle Min 3 Views 3 VIEWS COMPARISON: None. FINDINGS: SOFT TISSUES: Moderate soft tissue swelling adjacent to lateral malleolus. Atrophic calcifications distal leg medially. BONES/JOINTS: Oblique fracture of the distal fibular metaphysis with slight lateral displacement of the distal fracture fragment with respect to the proximal fracture fragment. RAD/Ankle min 3 Views IMPRESSION: Distal fibular fracture. Moderate adjacent soft tissue swelling. Electronically Signed: Donnell Blanton MD, UMAIR at 13:46 EDT ,
--- NOTE | 2023-02-11 13:15 | ED.VIS.FALL ---
HPI HPI - Fall History of Present Illness Chief Complaint: Fall Informant: patient and spouse/S.O. Occured/Mechanism Occurred: Today Fall down steps #: 1-2 Usually ambulates: Without assistance Associated Symptoms Associated Symptoms: Positive for Inability to ambulate; Negative for Loss of consciousness Narrative Narrative: 77-year-old male was walking down 2 steps and missed his footing, twisting his right ankle, which caused him to fall against a nearby brick wall hitting his head on the right side. He feels like he has a little bit of blood in his ear canal, the states that is the main reason they came in because they were concerned that he had a major head injury. He denies having headache, nausea, loss of consciousness, vision changes, or any peripheral neurologic symptoms. Denies any neck pain or back pain or other injuries besides his right ankle, he cannot bear weight on it since the injury. [facility] Medical History Arthritis Back problem Cataract Essential (primary) hypertension HLD (hyperlipidemia) Obesity Paroxysmal atrial fibrillation Right bundle branch block (RBBB) Type 2 diabetes mellitus Home Medications aspirin 81 mg tablet,delayed release (Adult Low Dose Aspirin) 81 mg PO QDAY 04/06/18 [History Last Taken Unknown] insulin aspart U-100 100 unit/mL subcutaneous solution (Novolog U-100 Insulin aspart) See Rx Instructions .Route .COMPLEX 04/06/18 [History Last Taken Unknown] insulin detemir U-100 100 unit/mL subcutaneous solution (Levemir U-100 Insulin) See Rx Instructions .Route .COMPLEX 04/06/18 [History Last Taken Unknown] metformin 750 mg tablet,extended release 24 hr 1,500 mg PO QHS 04/06/18 [History Last Taken Unknown] pravastatin 80 mg tablet 80 mg PO QDAY 04/06/18 [History Last Taken Unknown] saxagliptin 5 mg-metformin ER 1,000 mg tablet,extend release 24hr mp (Kombiglyze XR) 1 tab PO QDAY 04/06/18 [History Last Taken Unknown] hydrochlorothiazide 12.5 mg tablet 12.5 mg PO DAILY 04/12/21 [History Last Taken Unknown] tamsulosin 0.4 mg capsule 0.4 mg PO DAILY 04/12/21 [History Last Taken Unknown] carbidopa 25 mg-levodopa 100 mg tablet 1.5 tab PO TID 04/12/22 [History Last Taken Unknown] cholecalciferol (vitamin D3) 25 mcg (1,000 unit) capsule 25 mcg PO BID 04/12/22 [History Last Taken Unknown] duloxetine 20 mg capsule,delayed release 20 mg PO DAILY 04/12/22 [History Last Taken Unknown] fluticasone fur. 200 mcg-umeclid 62.5 mcg-vilant 25 mcg inhalat.powder (Trelegy Ellipta) 1 inh inhalation DAILY 04/12/22 [History Last Taken Unknown] hydroxyzine HCl 25 mg tablet 25 mg PO QHS 04/12/22 [History Last Taken Unknown] oxycodone-acetaminophen 5 mg-325 mg tablet tablet PO 04/12/22 [History Last Taken Unknown] pantoprazole 40 mg tablet,delayed release 40 mg PO DAILY 04/12/22 [History Last Taken Unknown] potassium chloride 10 mEq tablet,extended release 20 meq PO DAILY 04/12/22 [History Last Taken Unknown] telmisartan 40 mg-hydrochlorothiazide 12.5 mg tablet 1 tab PO DAILY 04/12/22 [History Last Taken Unknown] Allergy/AdvReac Type Severity Reaction Status Date / Time metoclopramide [From Reglan] Allergy HYPER Verified 02/11/23 12:49 Family History Father Leukemia Surgical History History of left tennis elbow History of skin cancer History of total left knee replacement (TKR) Hx of spinal fusion Social History Smoking Status: Former smoker alcohol intake: never substance use type: does not use ROS ROS ED Constitutional Constitutional ED: Denies chills or fever(s) Eyes Eyes: Denies change in vision or diplopia ENT ENT ED: Denies ear pain, epistaxis, facial pain or rhinorrhea Cardiovascular Cardiovascular: Denies chest pain or palpitations Respiratory/Chest Respiratory/Chest: Denies cough or dyspnea Gastrointestinal Gastrointestinal: Denies abdominal pain, diarrhea, melena, nausea or vomiting Genitourinary Genitourinary ED: Denies dysuria or hematuria Musculoskeletal Musculoskeletal: Reports extremity pain; Denies back pain or neck pain Integumentary Reports Abrasions; Denies abscess, laceration or rash Neurologic Neurologic: Denies confusion, headache(s), paresthesias or weakness EXAM Physical Exam Const Vital Signs: 02/11/23 12:46 02/11/23 12:56 Temperature 97.0 F L Temperature Source Temporal Pulse Rate 82 Respiratory Rate 18 Respiratory Effort Normal Non-Labored Blood Pressure 149/68 H Blood Pressure Mean 95 Pulse Ox 97 Oxygen Delivery Method Room Air Positive well nourished and well developed General Appearance ED: well developed and NAD HEENT Reports TM's clear and nasal mucous membranes and turbinates normal HEENT Narrative: Abrasion and contusion right lateral preauricular face and just above the ear, no lacerations requiring repair, there is a small amount of blood in the external most portion of the external ear canal, but the rest of the canal has no blood in the tympanic membrane is normal-appearing without any hemotympanum, no CSF otorhinorrhea. It does appear that nearby blood from the abrasion dripped into the ear canal. No bony facial tenderness. No trismus no malocclusion, able to move his mandible [id number] without any discomfort. Zygomatic arch is nontender and the rest of the face is atraumatic. trauma Face and Sinus: Negative for facial tenderness Tympanic Membrane ED: Yes TM's clear Eyes PERRL and EOMs intact bilaterally Visual Acuity: other Other Details: no entrapment or pain with extraocular movements Neck full ROM and supple General: Negative for tenderness Chest Wall inspection of chest normal and palpation of chest normal Chest: symmetrical chest wall rise; Negative for crepitus or tenderness Resp normal respiratory effort and clear to auscultation bilaterally Percussion: other equal BS bilat Cardio no murmurs Rate: regular rate Rhythm: regular rhythm GI normal to inspection, nondistended, normoactive bowel sounds, soft to palpation and non-tender Back/Spine normal ROM Cervical Spine: Negative for cervical spine tenderness Thoracic Spine / Upper Back: Negative for thoracic spinal tenderness Lumbar Spine / Lower Back: Negative for lumbar spinal tenderness Extremity Extremity Narrative: Tender with significant swelling right lateral malleolus, no gross deformities, nontender to medial malleolus and base of the fifth metatarsal and proximal fibula. Limited range of motion of the right ankle due to pain, but normal painless range of motion throughout all other joints of all 4 extremities. No other areas of bony extremity tenderness. General Extremety ED: Yes tenderness Neuro oriented x3, CN's II-XII intact bilaterally, moves all extremities, no focal motor deficits and no sensory deficits noted [place] Coma Scale: document GCS findings Spontaneous Obeys Commands Oriented 15 Sensorium / Orientation: awake and alert Psych mental status grossly normal and thought process normal Skin no wounds Lesions: no lesions Rashes: no rashes MDM MDM MDM Narrative Medical decision making narrative: Patient is on a baby aspirin no anticoagulants. Mainly due to age, although as I was at a low suspicion of intracranial injury, CT was obtained. The images appear unremarkable my interpretation, radiologist agrees, I agree with his interpretation. 3 views of the right ankle on my interpretation show what appears to be a nondisplaced distal fibula fracture, it appears to be consistent with a Pollard B. I discussed this with Dr. Jean-Baptiste on for orthopedics, he advises an orthotic boot without taking it off, nonweightbearing is much as possible, and close outpatient follow-up after the weekend. Patient is fine with this, I offered analgesics he declines them. Nurses cleansed the abrasions on the right side of his face. Radiography Diagnostic Testing: Clinical Impression(s) from Imaging Studies Ankle X-Ray 02/11/23 13:06 IMPRESSION: Distal fibular fracture. Moderate adjacent soft tissue swelling. Electronically Signed: Donnell Blanton MD, JD at 13:46 EDT , Brain CT 02/11/23 13:22 IMPRESSION: No acute changes. Moderate cortical and central atrophy. Mild chronic microvascular ischemic change. Mild cerebellar atrophy. Electronically Signed: Donnell Blanton MD, JD at 13:49 EDT , Discharge Plan Triage Chief Complaint: Fall ED Provider: Osman Farooq Dx/Rx/DC Orders Clinical Impression: Closed traumatic nondisplaced fracture of distal end of right fibula, Closed head injury without concussion, Abrasion of face Instructions: Walker Stand Non Wt Bearing Steps, ED Ankle Fracture, Distal Fibula Prescriptions: No Action metformin 750 mg tablet extended release 24 hr 1,500 mg PO QHS pravastatin 80 mg tablet 80 mg PO QDAY insulin detemir U-100 [Levemir U-100 Insulin] 100 unit/mL solution See Rx Instructions .ROUTE .COMPLEX Label Comments: 80 units Sub-Q in the morning; 75 units Sub-Q in the evening Rx Instructions: 80 units Sub-Q in the morning; 75 units Sub-Q in the evening saxagliptin-metformin [Kombiglyze XR] 5-1,000 mg tablet, ER multiphase 24 hr 1 tab PO QDAY aspirin [Adult Low Dose Aspirin] 81 mg tablet,delayed release (DR/EC) 81 mg PO QDAY insulin aspart U-100 [Novolog U-100 Insulin aspart] 100 unit/mL solution See Rx Instructions .ROUTE .COMPLEX Label Comments: 22 units Sub-Q TID before meals Rx Instructions: 22 units Sub-Q TID before meals hydrochlorothiazide 12.5 mg tablet 12.5 mg PO DAILY tamsulosin 0.4 mg capsule 0.4 mg PO DAILY cholecalciferol (vitamin D3) 25 mcg (1,000 unit) capsule 25 mcg PO BID oxycodone-acetaminophen 5-325 mg tablet PO Trelegy Ellipta 200-62.5-25 mcg blister with device 1 inh inhalation DAILY carbidopa-levodopa 25-100 mg tablet 1.5 tab PO TID duloxetine 20 mg capsule,delayed release(DR/EC) 20 mg PO DAILY pantoprazole 40 mg tablet,delayed release (DR/EC) 40 mg PO DAILY telmisartan-hydrochlorothiazid 40-12.5 mg tablet 1 tab PO DAILY potassium chloride 10 mEq tablet extended release 20 meq PO DAILY hydroxyzine HCl 25 mg tablet 25 mg PO QHS Primary Care Provider: Ja Cooley Referrals: Ja Cooley MD [Primary Care Provider] - Arnaud Jean-Baptiste MD [Med Staff - Active Staff] - As soon as possible (Call for appointment to be seen this coming week) Activity Restrictions/Additional Instructions: Leave boot on until you see orthopedics Disposition Disposition: Home, Self Care
--- NOTE | 2023-02-11 13:22 | CT_ITS ---
INDICATION: trauma. HEAD VS BRICK WALL, RIGHT SIDE EXAMINATION: CT BRAIN - CT Head or Brain W/O Contrast Injection TECHNIQUE: Multiple axial images were obtained of the head without intravenous contrast. A radiation dose optimization technique was used for this scan. IV Contrast dosage and agent: None. COMPARISON: FINDINGS: BRAIN PARENCHYMA: Moderate cortical and central atrophy. Mild chronic microvascular ischemic change periventricular white matter. Mild cerebellar atrophy. . CSF SPACES: No hydrocephalus. Basal cisterns are patent. CALVARIUM, SKULL BASE, PARANASAL SINUSES AND MASTOID AIR CELLS: Clear. No discrete lytic or blastic abnormalities. ORBITS: Both globes, extraocular muscles, optic nerves and retrobulbar fat appear unremarkable. ASPECTS Score for Acute Strokes: 10 CT/Brain/Head without Contrast IMPRESSION: No acute changes. Moderate cortical and central atrophy. Mild chronic microvascular ischemic change. Mild cerebellar atrophy. Electronically Signed: Donnell Blanton MD, UMAIR at 13:49 EDT ,
== END 2023-02-11 14:34 | disposition home or self-care (01) ==
PROVIDERS: Emergency Provider Emergency Medicine; PCP Family Medicine; Visit Provider Emergency Medicine
DX: S82.831A Other fracture of upper and lower end of right fibula, initial encounter for closed fracture (principal); I48.0 Paroxysmal atrial fibrillation; E11.9 Type 2 diabetes mellitus without complications; Z79.4 Long term (current) use of insulin; S00.81XA Abrasion of other part of head, initial encounter; W10.9XXA Fall (on) (from) unspecified stairs and steps, initial encounter; Y93.01 Activity, walking, marching and hiking; Y99.8 Other external cause status; I10 Essential (primary) hypertension; E78.5 Hyperlipidemia, unspecified; E66.9 Obesity, unspecified; Z68.36 Body mass index [BMI] 36.0-36.9, adult; Z79.82 Long term (current) use of aspirin; Z79.84 Long term (current) use of oral hypoglycemic drugs; Z79.899 Other long term (current) drug therapy; Z87.891 Personal history of nicotine dependence
CPT/HCPCS: 70450; 73610; 99283

== ENCOUNTER → 2023-02-21 | Outpatient (CLI) | payer MEDICARE, OTHER, SELFPAY ==
[2023-02-21 17:50] LABS: Absolute Lymphocyte Count 3.36 X10^3/uL (0.83-4.51); Absolute Neutrophil Count 5.4 X10^3/uL (2.0-7.7); Basophil# 0.07 X10^3/uL; Basophil% 0.7 % (0-1); Eosinophil# 0.15 X10^3/uL; Eosinophils% 1.5 % (0-5); Hematocrit 42.2 % (40-54); Lymphocyte # 3.36 X10^3/ul (0.83-4.51); Lymphocyte % 33.3 % (19-41); Mean Corp Hgb Conc 33.2 g/dL (32-36); Mean Corpuscular Hgb 30.7 pg (27.0-32.0); Mean Corpuscular Volume 92.5 fL (80-94); Mean Platelet Vol. 10.2 fl (6.2-12.0); Monocyte# 1.05 X10^3/uL; Monocyte% 10.4 % (0-10); NRBC Flagged by Analyzer 0 % (0-5); Neutrophil # 5.38 X10^3/uL (2.7-7.7); Neutrophil % 53.2 % (47-70); Platelet Count 330 K/mm3 (150-450); RBC Distribution Width SD 47.2 fl (35.1-43.9); Red Blood Count 4.56 M/mm3 (4.6-6.2); White Blood Count 10.1 K/mm3 (4.4-11.0)
[2023-02-21 18:31] LABS: AST(SGOT) 9 U/L (15-37); Alanine Aminotransfer ALT/SGPT 19 U/L (16-61); Albumin, Serum 3.4 g/dL (3.2-5.0); Alkaline Phosphatase 68 U/L (45-117); Anion Gap 6 (5-15); BUN 27 mg/dL (7-18); BUN/Creat Ratio 27.1 RATIO (10-20); Calcium,Total 9.1 mg/dL (8.5-10.1); Chloride 104 mmol/L (98-107); Cholesterol 133 mg/dL (200); EST Glomerular Filtration Rate 77 mL/min (>60); Est Glom Filt Rate - Afr Amer 93 mL/min (>60); Globulin 3.4 g/dL (2.2-4.2); Glucose 232 mg/dL (74-106); High Density Lipoprotein 52 mg/dL; Magnesium 1.9 mg/dL (1.6-2.6); Protein, Total 6.8 g/dL (6.4-8.2); Sodium Level 137 mmol/L (136-145); Thyroid Stim Hormone (TSH) 1.59 uIU/mL (0.358-3.74); Triglycerides 117 mg/dL; Very Low Density Lipoprotein 23 mg/dL (5-40)
[2023-02-21 18:33] LABS: Microalbumin,Random Urine 11.9 mg/L (NO RANGE EST.); Microalbumin:Creatinine Ratio 10.3 mg/g CRE (<30 mg/g CRE)
[2023-02-21 18:45] LABS: Hemoglobin A1c 6.4 % (3.8-5.6)
== END | disposition home or self-care (01) ==
LOC: MFPLAB 16:19
PROVIDERS: PCP Family Medicine; Referring Provider Family Medicine; Visit Provider Family Medicine
DX: E11.9 Type 2 diabetes mellitus without complications (principal); I48.91 Unspecified atrial fibrillation
CPT/HCPCS: 36415; 80053; 80061; 82043; 82570; 83036; 83735; 84443; 85025

== ENCOUNTER → 2023-05-01 | Outpatient (CLI) | payer MEDICARE, OTHER, SELFPAY ==
[2023-05-01 15:38] LABS: Hemoglobin A1c 6.2 % (3.8-5.6)
[2023-05-01 15:39] LABS: AST(SGOT) 12 U/L (15-37); Alanine Aminotransfer ALT/SGPT 13 U/L (16-61); Anion Gap 7 (5-15); BUN 23 mg/dL (7-18); BUN/Creat Ratio 23.4 RATIO (10-20); Chloride 107 mmol/L (98-107); Creatinine, Serum 0.98 mg/dL (0.70-1.30); EST Glomerular Filtration Rate 78 mL/min (>60); Est Glom Filt Rate - Afr Amer 95 mL/min (>60); Glucose 98 mg/dL (74-106); Potassium 3.8 mmol/L (3.5-5.1); Sodium Level 140 mmol/L (136-145)
== END | disposition home or self-care (01) ==
LOC: MFPLAB 13:44
PROVIDERS: PCP Family Medicine; Visit Provider Internal Medicine Endocrinology, Diabetes & Metabolism
DX: E11.42 Type 2 diabetes mellitus with diabetic polyneuropathy (principal); E78.2 Mixed hyperlipidemia; I10 Essential (primary) hypertension
CPT/HCPCS: 36415; 80048; 83036; 84450; 84460

== ENCOUNTER 2023-05-02 14:30 | Outpatient (RCR) | payer MEDICARE, OTHER, SELFPAY ==
--- NOTE | 2023-04-07 14:07 | HP.PTEVAL ---
Patient's Visit Information KEVIN GRIFFITH is a 77 year old M referred to Physical Therapy by Dr. Ja Cooley MD with a diagnosis of Neuropathy, LOB and PD. Date of Evaluation: 04/07/23 Physical Therapist: ABBY [place] - Visit Plan Frequency: 2x /Week Duration: 6 Weeks Plan: 2X/ week for 6 weeks for head and eye vertical movement, habituation with head moving from low to high, vestibular inputs, standing and walking with head turns, gait training, overall balance with HEP. HEP: RFIS 1/4-1/2 ROM X 4 and head and eyes to top of door to bottom of door in sitting - Subjective Pt has fallen several times in the last month. He broke his R leg and it is healed so he can walk. The Dr thinks that he has Neuropathy cause he can not feel his feet and thinks that it why he is falling but not sure. Stairs: he has one step at home with no railing. He has a chair lift to the basement. He has always fallen on the basement stairs or just walking outside. He can be walking out side and just fall over and he falls BW. He is able to get back up slowly if he falls by going on his knees. He uses a quad cane for about a month but does not use it all the time. He does not feel like his legs are weak. He has back pain every day and he sees basali for that. He does not know if the PD meds help. He does not have tremors since he was put on a certain med that he does not remember the name. - Pain back pain Pain Intensity (Out of 10): 6 - Objective Gait: walks with some veering, clears his feet with gait, some unsteadiness when turning 180 degrees and reaches of the wall hand rail. LE MMT: R hip flex 17.3 and L 16.5. R knee ext 21.9 and L 20. R knee flex 14.3 and L 13. TUG 9.95. FGA: 17. CATSIB: 95/120. standing heel and toe raises: increase pain in R ankle with ankle DF on the R. Pt has decreased ROM on the R DF. sit to stand without using his arms but slowly. Standing with looking up toward the ceiling pt will continue to have whole body move retro. Seated repeated flexion 1/2 ROM X 5. seated look up to the ceiling and down to the bottom of the door he could do 20 sec and then he got dizzy - Balance/Special Test Scores Functional Gait Assessment Score: 17 % Disability: 43.3400 CATSIB Score (Max score 120 seconds): 95 Lower Extremity Functional Score: 49 - Goals Goal 1:: I HEP Goal Time Frame: 6-8 Weeks Goal 2:: Be able to walk and look up to the ceiling without getting dizzy or feeling of falling BW Goal Time Frame: 6-8 Weeks Goal 3:: Be able to increase balance by increase catsib score (score was 95 at eval) Goal Time Frame: 6-8 Weeks Goal 4:: Decrease freq of falling or feeling off when looking up or standing up from getting something from a lower surface Goal Time Frame: 6-8 Weeks - Rehabilitation Potential Rehabilitation Potential: Good - Anticipated Interventions Patient/Client Instruction: Educate patient on: Condition, Plan of Care For the Purpose of:: To decrease pain, To increase ROM, To improve nutrient delivery to tissue, To improve muscle performance and motor function, To improve ability to perform ADL's, To increase tolerance to activity/condition/position, To improve performance and independence with ADL's, To improve ability of physical actions for home/community/work/leisure, To improve gait and locomotor functions, To improve health of tissue, To decrease soft tissue restriction, To increase flexibility/ROM, To improve endurance, To improve balance, To improve safety with gait Therapeutic Exercise to Include: Strength training, Endurance training, Balance training, Postural training, Flexibilty training, Gait and locomotor training, Neuromotor development, Active ROM For the Purpose of:: To decrease pain, To increase ROM, To improve nutrient delivery to tissue, To improve muscle performance and motor function, To improve ability to perform ADL's, To increase tolerance to activity/condition/position, To improve performance and independence with ADL's, To decrease level of supervision to perform tasks, To improve ability of physical actions for home/community/work/leisure, To improve gait and locomotor functions, To improve health of tissue, To decrease soft tissue restriction, To increase flexibility/ROM, To improve endurance, To improve balance, To improve safety with gait, To assume or resume ADL's Functional Training to Include: Gait training For the Purpose of:: To improve gait and locomotor functions, To improve safety with gait Thank you for the opportunity to evaluate your patient. For Medicare and Medicare HMO plans, please review the plan of care and approve it. It will need to be FAXED BACK to us at [phone] for Medicare purposes. For Medicare only, by signing this I certify the plan of care. Please let me know if there are questions or concerns regarding this plan of care. Physician Signature: Date:
== END 2023-05-02 19:00 | disposition home or self-care (01) ==
LOC: PT 14:30
PROVIDERS: PCP Family Medicine; Referring Provider Family Medicine; Visit Provider Family Medicine
DX: G20 Parkinson's disease (principal); G62.9 Polyneuropathy, unspecified; R26.89 Other abnormalities of gait and mobility
CPT/HCPCS: 97110; 97162; 97530

== ENCOUNTER → 2023-05-09 | Outpatient (CLI) | payer MEDICARE, OTHER, SELFPAY ==
[2023-05-09 17:35] LABS: Hematocrit 41.8 % (40-54); Hemoglobin 14.1 g/dL (13.0-16.5); Mean Corp Hgb Conc 33.7 g/dL (32-36); Mean Corpuscular Hgb 30.7 pg (27.0-32.0); Mean Corpuscular Volume 90.9 fL (80-94); Mean Platelet Vol. 10.7 fl (6.2-12.0); Platelet Count 285 K/mm3 (150-450); RBC Distribution Width CV 13.3 % (11.6-14.6); RBC Distribution Width SD 44.1 fl (35.1-43.9); White Blood Count 10.2 K/mm3 (4.4-11.0)
[2023-05-09 17:54] LABS: Vitamin B12 281 pg/mL (211-911)
[2023-05-09 18:09] LABS: Thyroid Stim Hormone (TSH) 2.11 uIU/mL (0.358-3.74)
[2023-05-12 18:07] LABS: Free Kappa Light Chains 34.1 mg/L (3.3-19.4); Free Lambda Light Chains 20.2 mg/L (5.7-26.3); Vitamin B1, Thiamine 118.1 nmol/L (66.5-200.0)
== END | disposition home or self-care (01) ==
LOC: MFPLAB 14:22
PROVIDERS: PCP Family Medicine; Visit Provider Psychiatry & Neurology Neurology
DX: I10 Essential (primary) hypertension (principal); F03.90 Unspecified dementia, unspecified severity, without behavioral disturbance, psychotic disturbance, mood disturbance, and anxiety; G62.9 Polyneuropathy, unspecified
CPT/HCPCS: 36415; 82607; 82746; 83883; 84425; 84443; 85027

== ENCOUNTER → 2023-05-18 | Outpatient (CLI) | payer MEDICARE, OTHER, SELFPAY ==
--- NOTE | 2023-05-18 16:21 | MRI_ITS ---
STUDY: MRI CERVICAL SPINE WITHOUT CONTRAST REASON FOR EXAM: Male, 77 years old. Abnormality of gait TECHNIQUE: Standardized fat and water weighted pulse sequences were obtained in the sagittal and axial planes. COMPARISON: None FINDINGS: Normal foramen magnum and brainstem-cervical cord junction. Normal craniovertebral junction. Normal anterior atlantoaxial articulation. Normal odontoid process. Normal cervical lordosis. Normal vertebral bodies and posterior osseous elements. C2-3: Normal endplates. Normal disc height, signal and morphology. Normal central canal and intervertebral neural foramina. C3-4: Moderate broad disc protrusion with focal kyphosis produces moderate spinal stenosis with abutment of the central spinal cord and mild bilateral neural foraminal stenosis. C4-5: 2 mm retrolisthesis of C4 on C5 with a mild broad disc protrusion produces moderate spinal stenosis with abutment of the central spinal cord and moderate bilateral neural foraminal stenosis. C5-6: 2 mm retrolisthesis of C5 on C6 with a mild bilobed disc protrusion produces mild spinal stenosis and multilevel neural foraminal stenosis. C6-7: Normal endplates. Normal disc height, signal and morphology. Normal central canal and intervertebral neural foramina. C7-T1: Normal endplates. Normal disc height, signal and morphology. Normal central canal and intervertebral neural foramina. Normal cervical cord. Normal visualized soft tissue structures. MRI/Spine Cervical (Routine) IMPRESSION: Multilevel degenerative changes, as described above. Electronically Signed: Nicholas Zeng MD at 0:04 EDT ,
--- NOTE | 2023-05-18 16:21 | MRI_ITS ---
INDICATION: Prior lumbar surgery; low back pain; gait disorder EXAMINATION: MRI - MR Spine Lumbar W/O Contrast TECHNIQUE: Multiplanar and multisequence MR images of the lumbar spine. IV Contrast Dosage and Agent: None. COMPARISON: 03/18/2021 FINDINGS: VERTEBRAE: Vertebral body heights are preserved. No acute fracture or pathologic marrow replacement. Stable surgical changes at L3-4 with disc spacer device placement producing artifact. VERTEBRAL ALIGNMENT: Stable 2 mm spondylolisthesis at L5-S1. There is preservation of the normal lumbar lordosis. CORD: Normal position and signal intensity of the conus medullaris. L1/L2: Normal disc height and morphology. Normal spinal canal, lateral recesses and neuroforamina. L2/L3: Loss of normal disc space height. Circumferential annular bulge produces moderate right and mild left foraminal stenosis. No significant central stenosis. L3/L4: Stable changes from disc spacer placement. No significant central or foraminal stenosis. L4/L5: Loss of normal disc space height. Stable mild central and moderate bilateral foraminal stenosis due to annular bulge and facet joint hypertrophy. L5/S1: Loss of normal disc space height. Stable moderate bilateral foraminal stenosis with mild central stenosis due to the combination of spondylolisthesis and posterior element hypertrophy. SOFT TISSUES: Unremarkable. MRI/Spine Lumbar (Routine) IMPRESSION: Stable multilevel degenerative disc disease with foraminal and central stenoses as above. Stable postsurgical changes at L3-4. Electronically Signed: Lobito Ramon MD at 0:34 EDT ,
--- NOTE | 2023-05-18 16:21 | MRI_ITS ---
STUDY: MRI BRAIN WITHOUT CONTRAST REASON FOR EXAM: Male, 77 years old. Parkinson''s disease; gait disorder; dementia TECHNIQUE: Standardized multiplanar fat and water weighted pulse sequences were obtained. COMPARISON: CT February 11, 2023 FINDINGS: There is moderate cerebral atrophy with widening of the extra-axial spaces and ventricular dilatation. Normal white matter tracts of the supratentorial brain. There is no evidence for recent intracranial ischemia or other cause of cytotoxic edema on diffusion weighted imaging (DWI). Normal T2* images of the brain without demonstrated susceptibility artifact. There is no demonstrated hemosiderin stain. Normal bilateral basal ganglia. Normal thalami. There is no extra-axial fluid accumulation. Normal flow voids within the major intracranial circulation suggesting patency by spin echo criteria. Normal sella turcica, pituitary gland, infundibular stalk, optic chiasm and hypothalamus. Normal tectal plate and pineal gland. Normal midbrain, katia and medulla. There is mild atrophy of the cerebellum. Normal basal cisterns. Normal bilateral temporal bones. Normal bilateral internal auditory canals. There are bilateral ocular lens implants with otherwise normal intraorbital contents. Normal visualized paranasal sinuses. Normal calvarium and skull base. Normal visualized soft tissue structures. Normal visualized upper cervical spine. MRI/Brain without Contrast IMPRESSION: Involutional changes of the brain, as described above. Electronically Signed: Osman Ramos MD at 21:07 EDT ,
== END | disposition home or self-care (01) ==
LOC: MRI 16:00
PROVIDERS: PCP Family Medicine; Referring Provider Psychiatry & Neurology Neurology; Visit Provider Psychiatry & Neurology Neurology
DX: R26.9 Unspecified abnormalities of gait and mobility (principal); F03.90 Unspecified dementia, unspecified severity, without behavioral disturbance, psychotic disturbance, mood disturbance, and anxiety; M54.50 Low back pain, unspecified
CPT/HCPCS: 70551; 72141; 72148

== ENCOUNTER → 2023-06-21 | Outpatient (CLI) | payer MEDICARE, OTHER, SELFPAY ==
--- NOTE | 2023-06-21 13:54 | NEURO ---
NCS and/or EMG Patient Report Ordering Doctor: Vick Rosenberg DATE OF SERVICE: 06/21/23 Arnaud presents for electrodiagnostic testing of the lower limbs. He has a history of Parkinsons and reports frequent falls. Electrodiagnostic Findings: Testing was performed in the lower limbs. Right peroneal motor nerve demonstrates normal distal latency with reduced amplitude and reduced conduction velocity. Absent left peroneal motor response. Right tibial motor nerve demonstrates normal distal latency and amplitude and reduced conduction velocity. Left tibial motor nerve demonstrates prolonged distal latency with normal amplitude and borderline reduced conduction velocity. Prolonged H reflex is noted bilaterally. Sensory responses are not obtainable. Needle EMG testing was performed in the lower limbs. No acute denervation was noted. Motor unit action potentials were of normal amplitude and duration. Electrodiagnostic impression: This is an abnormal study. 1. 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 2. No electrodiagnostic evidence is noted for lumbar radiculopathy. 3. No electrodiagnostic evidence is noted for myopathy. Multi Select Codes Neurology Neurology Interp Codes: 47547-04 Musc test done w/n test comp (interp) (2) and 24618-24 Nrv cndj test 9-10 studies (interp)
== END | disposition home or self-care (01) ==
LOC: PSN 08:43
PROVIDERS: PCP Family Medicine; Referring Provider Psychiatry & Neurology Neurology; Visit Provider Psychiatry & Neurology Neurology
DX: R25.1 Tremor, unspecified (principal); G62.9 Polyneuropathy, unspecified; R26.9 Unspecified abnormalities of gait and mobility
CPT/HCPCS: 95886; 95911

== ENCOUNTER → 2023-08-03 | Outpatient (CLI) | payer MEDICARE, OTHER, SELFPAY ==
[2023-08-03 15:38] LABS: AST(SGOT) 9 U/L (15-37); Alanine Aminotransfer ALT/SGPT 11 U/L (16-61); Anion Gap 5 (5-15); BUN 19 mg/dL (7-18); BUN/Creat Ratio 19.8 RATIO (10-20); Chloride 108 mmol/L (98-107); Cholesterol 127 mg/dL (200); Creatinine, Serum 0.96 mg/dL (0.70-1.30); EST Glomerular Filtration Rate 81 mL/min (>60); Est Glom Filt Rate - Afr Amer 97 mL/min (>60); Glucose 66 mg/dL (74-106); High Density Lipoprotein 49 mg/dL; Potassium 3.5 mmol/L (3.5-5.1); Sodium Level 139 mmol/L (136-145); Thyroid Stim Hormone (TSH) 1.96 uIU/mL (0.358-3.74); Triglycerides 101 mg/dL; Very Low Density Lipoprotein 20 mg/dL (5-40)
[2023-08-03 15:43] LABS: Microalbumin,Random Urine 18.2 mg/L (NO RANGE EST.); Microalbumin:Creatinine Ratio 14.9 mg/g CRE (<30 mg/g CRE)
[2023-08-03 16:07] LABS: Hemoglobin A1c 6.2 % (3.8-5.6)
== END | disposition home or self-care (01) ==
LOC: MTLAB 11:59
PROVIDERS: PCP Family Medicine; Visit Provider Internal Medicine Endocrinology, Diabetes & Metabolism
DX: E11.42 Type 2 diabetes mellitus with diabetic polyneuropathy (principal); E78.2 Mixed hyperlipidemia; E04.9 Nontoxic goiter, unspecified
CPT/HCPCS: 36415; 80048; 80061; 82043; 82570; 83036; 84443; 84450; 84460

== ENCOUNTER → 2023-10-31 | Outpatient (CLI) | payer MEDICARE, OTHER, SELFPAY ==
[2023-10-31 15:20] LABS: AST(SGOT) 10 U/L (15-37); Alanine Aminotransfer ALT/SGPT 11 U/L (16-61); Anion Gap 7 (5-15); BUN 21 mg/dL (7-18); BUN/Creat Ratio 22.7 RATIO (10-20); Calcium,Total 8.8 mg/dL (8.5-10.1); Chloride 107 mmol/L (98-107); Creatinine, Serum 0.93 mg/dL (0.70-1.30); EST Glomerular Filtration Rate 84 mL/min (>60); Est Glom Filt Rate - Afr Amer 101 mL/min (>60); Glucose 102 mg/dL (74-106); Potassium 3.6 mmol/L (3.5-5.1); Sodium Level 142 mmol/L (136-145)
[2023-10-31 15:27] LABS: Hemoglobin A1c 5.7 % (3.8-5.6)
== END | disposition home or self-care (01) ==
LOC: MFPLAB 13:34
PROVIDERS: PCP Family Medicine; Visit Provider Internal Medicine Endocrinology, Diabetes & Metabolism
DX: E11.21 Type 2 diabetes mellitus with diabetic nephropathy (principal)
CPT/HCPCS: 36415; 80048; 83036; 84450; 84460

== ENCOUNTER → 2023-11-22 | Outpatient (CLI) | payer MEDICARE, OTHER, SELFPAY ==
--- NOTE | 2023-11-22 14:02 | RAD_ITS ---
STUDY: X-RAY CHEST REASON FOR EXAM: Male, 78 years old. pneumonia TECHNIQUE: PA and lateral views of the chest. COMPARISON: 12/31/2021. FINDINGS: Left basilar density, slightly more prominent in the interval and most compatible with small infiltrate. Cannot exclude underlying left posterior basilar atelectasis. Remainder of the lung lund are clear. There is no demonstrated pleural abnormality. Normal size heart. Normal mediastinum and javier. Normal visualized pulmonary arteries. Normal visualized aortic arch and descending thoracic aorta. There are diffuse degenerative changes of the visualized thoracic spine. Normal visualized ribs, clavicles, and shoulders. There is no demonstrated abnormality of the visualized soft tissue structures of the upper abdomen. RAD/Chest PA and Lateral IMPRESSION: Possible small focal left lower lobe infiltrate with underlying minimal linear atelectasis not excluded. Remainder of the chest x-ray reveals no acute process. Electronically Signed: Pearl Munoz MD at 18:44 EST ,
--- OUTSIDE RECORDS SUMMARY | 2023-11-22 14:23 | XMS RPT_ITS | CCD ---
Author Name Unknown Address [email or web address] [place] [address] Organization [facility] Care Team Providers Care Reimbursement Specialist Name Role Phone FelipeEmigdio galvan Gurwinder (Historic) Primary Care Prov ider Patricia Mcgowan Primary Care Provider Unavailable Primary Care Provider Daniel Mcgowan MD, Patricia Ramon Primary Care Provider BARB AMADOR Attending Unavailab le JOLLIFF, PATRICIA RAMON Primary Care Unavailable SELENEBARB Referring Unavailab le SELENE, BARB MAS Attending Unavailab le JOLLIFF, PATRICIA TRISTEN Primary Care Unavailable SELENE, BARB MAS Admitting Unavailab le JOLLIFF, PATRICIA TRISTEN Primary Care Unavailable SELENE, BARB MAS Attending Unavailab le SELENEBARB Referring Unavailab le JOLLIFFPATRICIA Referring Unavailable SELENE, BARB MAS Admitting Unavailab le SELENE, BARB MAS Attending Unavailab le SELENEBARB Referring Unavailab le JOLLIFF, PATRICIA TRISTEN Primary Care Unavailable SELENEBARB Admitting Unavailab SARAH Peace Attending Unavailable SELENEBARB Admitting Unavailab HARPAL Brody Attending Unavailable JOLLIFF, PATRICIA TRISTEN Primary Care Unavailable SELENEBARB Referring Unavailab le SELENE, BARB MAS Attending Unavailab le JOLLIFF, PATRICIA RAMON Primary Care Unavailable SELENEBARB Referring Unavailab le JOLLIFF, PATRICIA [facility] Primary Care Unavailable SELENE, BARB MAS Attending Unavailab le SELENEBARB Referring Unavailab PATRICIA Jimenez Primary Care Unavailable JASPREET QURESHI Attending Unavailable Lenora Ja [place] Primary Care Provider Lenora [facility] Primary Care Provider Lenora [facility] Primary Care Provider Lenora [facility] Primary Care Provider Lalo [employer].SERVICE ESTABLISHMENT ATTENDANT, Erika K Unavailable Lenora [facility] Primary Care Provider Lalo [employer].SERVICE ESTABLISHMENT ATTENDANT, Erika K Unavailable [employer].SERVICE ESTABLISHMENT ATTENDANT, Tatiana Unavailable PATRICIA MCGOWANER Primary Care Unavailable LIZBETH, JAYLYN Attending Unavailable LENI ESCUDERO Attending Unavailable LIZBETH, JAYLYN Referring Unavailable [facility] Primary Care Unavailabl e LIZBETH, JAYLYN Referring Unavailable ALEIDA RAMIREZ Attending Unavailable [facility] Primary Care Unavailabl e LIZBETH, JAYLYN Attending Unavailable [facility] Primary Care Unavailabl e LIZBETH, JAYLYN Attending Unavailable LIZBETH, JAYLYN Referring Unavailable [facility] Primary Care Unavailabl e [facility] Primary Care Unavailabl e MAINE MEDEL Attending Unavailable LIZBETH, JAYLYN Referring Unavailable [facility] Primary Care Unavailabl e KORI ACEVEDO Attending Unavailable LIZBETH, JAYLYN Referring Unavailable [facility] Primary Care Unavailabl e KORI ACEVEDO Attending Unavailable LIZBETH, JAYLYN Referring Unavailable LIZBETH, JAYLYN Referring Unavailable [facility] Primary Care Unavailabl e BEBBKORI Attending Unavailable BEBBKORI Attending Unavailable LIZBETH, JAYLYN Referring Unavailable [facility] Primary Care Unavailabl e [facility] Primary Care Unavailabl e LIZBETH, JAYLYN Referring Unavailable [facility] Primary Care Unavailabl e LIZBETH, JAYLYN Referring Unavailable Allergies Allergy Classification Reported Allergen(s) Allergy Type Date of Onset Reaction(s) Facility DOPamine Antagonists (3 sources) Metoclopramide Drug Allergy 03-01-20 18 Anxiety [facility] Unclassified (3 sources) Seasonal allergy Propensity to adverse reactions to substance 05-05-20 21 [facility] (12 sources) Metoclopramide; Translations: [METOCLOPRAMIDE HCL] Drug Allergy 10-05-20 [facility] (20 sources) Metoclopramide; Translations: [METOCLOPRAMIDE] Drug Allergy 08-25-20 Mental Status Change [facility] Work Phone: Medications Current Medications Medication Drug Class(es) Dates Sig (Normalized) Sig (Original) [id number] 200 actuat albuterol 0.09 mg/actuat metered dose inhaler (20 sources) beta2-Adrenergic Agonist Start: 09-06-2019 albuterol 90 mcg/actuation inhaler as needed . 0 09/06/2019 Active Completed/Discontinued Medications Medication Drug Class(es) Dates Sig (Normalized) Sig (Original) acetaminophen 500 mg oral tablet (1 source) Start: 05-19-2021 End: 05-19-2021 acetaminophen (TYLENOL) tablet 1,000 mg Problems Active Problems Problem Classification Problem Date Documented Da te Episodic/Chronic Anxiety disorders (3 sources) Anxiety; Translations: [Anxiety disorder, unspecified] Chronic Conditions associated with dizziness or vertigo (2 sources) Orthostatic hypotension; Translations: [Dizziness and giddiness] Episodic Joint disorders and dislocations; trauma-related (3 sources) 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; Translations: [Other articular cartilage disorders, right wrist] Onset: 8 03-22-2018 Chronic Mood disorders (2 sources) Depressive disorder; Translations: [Depression, unspecified depression type] Chronic Mood disorders (1 source) Mood disorders; Translations: [Depression, unspecified depression type] Onset: 2 Other gastrointestinal disorders (2 sources) Dysphagia; Translations: [Dysphagia, unspecified] Episodic Other gastrointestinal disorders (2 sources) Oropharyngeal dysphagia; Translations: [Dysphagia, oropharyngeal phase] Episodic Other hereditary and degenerative nervous system conditions (2 sources) Essential tremor; Translations: [Essential tremor] Chronic Other lower respiratory disease (5 sources) Dyspnea; Translations: [Shortness of breath] Onset: 1 Episodic Other nervous system disorders (2 sources) Tremor; Translations: [Tremor, unspecified] Episodic Other nervous system disorders (1 source) Dysarthria; Translations: [Dysarthria and anarthria] Episodic Other nervous system disorders (1 source) Dysphasia; Translations: [Dysphasia] Episodic Other screening for suspected conditions (not mental disorders or infectious disease) (6 sources) Electrocardiogram abnormal; Translations: [Abnormal electrocardiogram [ECG] [EKG]] Onset: 1 Episodic Parkinson`s disease (20 sources) Parkinson's disease; Translations: [Parkinson's disease] Onset: 2 Chronic Residual codes; unclassified (11 sources) Activity of daily living (ADL) alteration; Translations: [Other specified health status] Onset: 1 10-28-2021 Episodic Unclassified (1 source) OT EVAL Onset: 2 Past or Other Problems Problem Classification Problem Date Documented Da te Episodic/Chronic Administrative/social admission (11 sources) Other reduced mobility; Translations: [Other specified conditions influencing health status] Onset: 10-28-2021 Episodic Fracture of upper limb (3 sources) Closed Sanchez's fracture; Translations: [Sanchez's fracture of right radius, subsequent encounter for closed fracture with malunion] Onset: 03-01-2018 03-01-2018 Episodic Other connective tissue disease (12 sources) Paraparesis; Translations: [Other symptoms and signs involving the musculoskeletal system] Onset: 08-11-2022 Episodic Other connective tissue disease (1 source) Other symptoms and signs involving the musculoskeletal system; Translations: [Leg weakness, bilateral] Onset: 08-11-2022 Episodic Other gastrointestinal disorders (1 source) Dysphagia, oropharyngeal phase; Translations: [Dysphagia, oropharyngeal phase] Onset: 03-29-2022 Episodic Other nervous system disorders (20 sources) Impairment of balance; Translations: [Other abnormalities of gait and mobility] Onset: 10-28-2021 Episodic Other nervous system disorders (10 sources) Coordination problem; Translations: [Other lack of coordination] Onset: 10-28-2021 10-28-2021 Episodic Other nervous system disorders (20 sources) Abnormal gait; Translations: [Unsteadiness on feet] Onset: 03-18-2022 Episodic Other nervous system disorders (1 source) Unsteadiness on feet; Translations: [Gait instability] Onset: 03-18-2022 Episodic Other nervous system disorders (1 source) Other abnormalities of gait and mobility; Translations: [Imbalance] Onset: 08-11-2022 Episodic Other nervous system disorders (1 source) Dysarthria and anarthria; Translations: [Dysarthria] Onset: 03-29-2022 Episodic Results Test Name Value Interpretation Reference Range Facil ity Vital Signs Date Time Vital Sign Value Performing Clinician Ian garcía 12-12-2022 13:47-0500 Body height 177.8 cm Leni Escudero APRN.SERVICE ESTABLISHMENT ATTENDANT Work Phone: [facility] 12-12-2022 13:47-0500 Body weight 118.3 kg Leni Escudero APRN.SERVICE ESTABLISHMENT ATTENDANT Work Phone: [facility] 12-12-2022 13:47-0500 SaO2% (BldA) [Mass fraction] 96 % Leni Escudero APRN.SERVICE ESTABLISHMENT ATTENDANT Work Phone: [facility] 08-04-2022 13:56-0400 Diastolic blood pressure 86 mm[Hg] Jaylyn Sumner MD Work Phone: [facility] 08-04-2022 13:56-0400 Heart rate 107 /min Jaylyn Sumner MD Work Phone: [facility] 08-04-2022 13:56-0400 Respiratory rate 16 /min Jaylyn Sumner MD Work Phone: [facility] 08-04-2022 13:56-0400 SaO2% (BldA) [Mass fraction] 95 % Jaylyn Sumner MD Work Phone: [facility] 08-04-2022 13:56-0400 Systolic blood pressure 109 mm[Hg] Jaylyn Sumner MD Work Phone: [facility] 03-29-2022 12:09-0400 SaO2% (BldA) [Mass fraction] 98 % Jaylyn Sumner MD Work Phone: [facility] 03-17-2022 15:50-0400 Diastolic blood pressure 77 mm[Hg] Jaylyn Sumner MD Work Phone: [facility] 03-17-2022 15:50-0400 Systolic blood pressure 120 mm[Hg] Jaylyn Sumner MD Work Phone: [facility] 03-17-2022 14:51-0400 Body height 177.8 cm Jaylyn Sumner MD Work Phone: [facility] 03-17-2022 14:51-0400 Body weight 125.76 kg Jaylyn Sumner MD Work Phone: [facility] 03-17-2022 14:51-0400 Heart rate 101 /min Jaylyn Sumner MD Work Phone: [facility] 03-17-2022 14:51-0400 SaO2% (BldA) [Mass fraction] 98 % Jaylyn Sumner MD Work Phone: [facility] 10-05-2021 11:00-0500 Diastolic blood pressure 63 mm[Hg] Barb Amador MD Work Phone: [facility] Encounters Encounter Date Encounter Type Care Provider Facility Start: 02-14-2023 Telephone encounter Jaylyn peck MD Work Phone: Neurology Procedures Date Procedure Procedure Detail Performing Clinician Start: 03-11-2022 Adult depression scr eening assessment Jaylyn Sumner MD Work Phone: Start: 05-19-2021 OPERATIVE REPORT 3m Sca nning Start: 05-19-2021 Ecg routine ecg w/le ast 12 lds w/i&r Nicholas Dobbins MD Work Phone: Start: 05-19-2021 Gluc bld gluc mntr d ev cleared fda spec home use Nii Altman MD Work Phone: Start: 05-11-2021 ECHOCARDIOGRAM PHARMACOLOGICAL STRESS TEST Raeann Holland [employer] - SERVICE ESTABLISHMENT ATTENDANT Work Phone: Start: 05-05-2021 Antibody screen Nii Charlton MD Work Phone: Start: 05-05-2021 Blood count complete automated Raeann Holland [employer] - SERVICE ESTABLISHMENT ATTENDANT Work Phone: Start: 05-05-2021 Blood typing serologic abo Raeann Holland [employer] - SERVICE ESTABLISHMENT ATTENDANT Work Phone: Start: 05-05-2021 Ecg routine ecg w/le ast 12 lds w/i&r Raeann Holland [employer] - SERVICE ESTABLISHMENT ATTENDANT Work Phone: Start: 08-14-2006 CONVERTED SURGICAL PATHOLOGY Wyatt Thompson Work Phone: Start: 02-03-2006 CONVERTED SURGICAL PATHOLOGY Wyatt Thompson Work Phone: Plan of Treatment Date Care Activity Detail Author Start: 01-25-2031 Tetanus vaccination Tetanus: Every 10yrs [facility] Start: 03-11-2023 Adult depression screening assessment DEPRESSION SCREENING [facility] Start: 11-20-2022 ADVANCE DIRECTIVE DISCUSSION ADVANCE DIRECTIVE DISCUSSION [facility] Start: 11-20-2022 DEPRESSION ASSESSMENT DEPRESSION ASSESSMENT [facility] Start: 07-21-2022 Influenza vaccination INFLUENZA (#1) [facility] Start: 05-05-2022 Creatinine measurement Creatinine monitoring [facility] Work Phone: Start: 05-05-2022 Potassium monitoring Potassium monitoring [facility] Work Phone: Start: 12-21-2021 End: 12-21-2021 Telemedicine consultation with patient 12/21/2021 Telemedicine Neurology Barb Amador MD [address] [facility] [address] [place] [address] [facility], Neuroscience Start: 12-15-2021 End: 12-15-2021 Patient encounter procedure 12/15/2021 Appointment Radiology Barb Amador MD [address] [facility] [place] [facility] [address] [place] [address] [facility] Nuclear Medicine Start: 11-20-2021 ADVANCE DIRECTIVE DISCUSSION ADVANCE DIRECTIVE DISCUSSION [facility] Start: 11-20-2021 DEPRESSION ASSESSMENT DEPRESSION ASSESSMENT [facility] Start: 11-01-2021 End: 11-01-2021 Patient encounter procedure 11/01/2021 Appointment Radiology Barb Amador MD [address] [facility] [address] [place] [address] [facility] [place] Start: 06-03-2021 End: 06-03-2021 Patient encounter procedure 06/03/2021 Office [place] [address] [place] [id number] [facility] Start: 05-19-2021 End: 05-19-2021 Patient encounter procedure 05/19/2021 Appointment General Surgery Nii Altman MD [address] [place] [address] [facility] General Surgery Start: 05-05-2021 End: 07-04-2021 ECHO Pharmacological Stress Test ECHO Pharmacological Stress Test Echocardiography Routine Pre-op testing Abnormal EKG Shortness of breath Expected: 05/05/2021 (Approximate), Expires: 07/04/2021 [facility] Work Phone: Payers Date Payer Category Payer Unknown [place] [employer] [id number] 2021-Present [phone] [address] [place] [address] [id number] 2021 Unknown [id number] 2021 Unknown [id number] 2019 [employer] ( and others) [id number] 2009 Medicare [id number] 2009 Medicare [id number] 2009 Medicare [id number] 2002 Self-pay [id number] 1944 Unknown [id number]. 900 1944 Unknown [id number]. 900 1944 Unknown [id number]. 900 1944 Unknown [id number] [id number]. 900 1944 Unknown [id number]. 900 1944 Unknown [id number]. 900 1944 Unknown [id number] [id number]. 900 1944 Unknown [id number] [id number]. 900 1944 Unknown [id number]. 900 Social History Date Type Detail Facility Tobacco smoking stat [facility] Unknown if ever smoked [facility] Start: 1945 Sex Assigned At Not on file [facility] Start: 05-05-2021 End: 08-04-2022 Tobacco smoking status AKIS Former smoker [employer] Work Phone: Start: 11-20-1947 End: 11-20-1998 History of tobacco use Current smoker [facility] Start: 11-20-1947 End: 11-20-1998 History of tobacco use Cigarette Smoker [facility] Start: 05-05-2021 End: 05-19-2021 Cigarettes smoked current (pack per day) - Reported [facility] Work Phone: Start: 05-05-2021 End: 08-04-2022 Tobacco use and exposure Never used [facility] Start: 05-05-2021 End: 05-19-2021 Alcohol intake Current non-drinker of alcohol (finding) [facility] Work Phone: Start: 11-15-2021 End: 09-02-2022 Exposure to SARS-CoV-2 (event) Not sure [facility] Tobacco smoking stat [facility] Tobacco smoking consumption unknown [facility] Start: 10-05-2021 End: 12-12-2022 Alcohol intake Lifetime non-drinker (finding) [facility] Start: 08-25-2021 History SDOH Alcohol Frequency 1 [facility] Start: 1945 Sex Assigned At Male [facility] Start: 07-25-2022 End: 08-04-2022 Exposure to SARS-CoV-2 (event) Yes [facility] Medical Equipment Procedure Code Equipment Code Equipment Origin al Text Equipment Identifier Dates [id number] Start: 01-15-2018 SURE COMFORT PEN NEEDLES 31G X 8 MM MISC [id number] Start: 12-28-2017 blood sugar diagnostic (FreeStyle Lite Strips) strips [id number] Start: 01-15-2018 pen needle, diab etic 31 gauge x 5/16 Ndle [id number] Start: 12-28-2017 Clinical Notes 05-05-2021 to 02-15-2023 Telephone Encounter - Mary Harrison RN - 02/14/2023 3:08 PM EDTTelephone Encounter - Mary Harrison RN - 02/14/2023 3:04 PM EDTTelephone Encounter - Raeann Vizcarra - 02/14/2023 2:22 PM EDTAttachments Note Date & Type Note Facility 02-15-2023 Note HNO ID: [id number] Author: Kori Acevedo, PT, DPT Service: ? Author Type: Physical Therapist Type: Progress Notes Filed: 02/15/2023 7:45 AM Note Text: 02/15/2023 [facility] PHYSICAL THERAPY DISCONTINUANCE OF CARE Plan of Care Period: Start of Care Date: 08/11/22 Last Visit Date: 10/04/2022 Therapy Program: The following is a summary of the interventions provided for this episode of care; Therapeutic exercise, Neuromuscular re-education, and Gait training Assessment: The following is the goal status: Goals for Episode of Care: updated 09/15/2022 Patient will verbalize more confidence ambulating on grass without assistive device with modified independence. --continue to assess Patient will demonstrate current home exercise program independently. --continue to assess Patient will improve single leg stance time to 12 seconds on Bilateral Legs to improve balance. --continue to assess Patient Goals: Walk more stable. Based on the most recent progress report, patient was progressing slower than expected toward functional goals based on appointment compliance and medical complications . Reason for Discontinuation of Care: Patient has not returned to therapy or scheduled additional follow-up appointments due to fx of foot. Kori Acevedo, PT, DPT [facility] 02-14-2023 Miscellaneous Notes MC message sent to patient and for further assessment. Awaiting reply. YVONNE Naik, RN February 14, 2023 3:08 PM Received voicemail from patients' on Mon02/14/2023 2:28 PM Transcript below: This is Chiquita Griffith. My phone number is [phone]. I'm calling for my Kevin Griffith. His date of is 1945. I'm directing this to Dr. Sumner's nurse. Kevin fell Monday morning and he broke his ankle and possibly his big toe. We're going to see the ortho people tomorrow morning but since then he has fallen two more times. He has almost fallen about three more times and from his description of it, it dizziness, it isn't losing his balance or anything like that, he just goes down. He has no warning and he just goes down, and after hearing that, I feel it's probably due to his Parkinson's. I'm hoping and praying that maybe a prescription change on his levodopa will maybe help him or if you have any other things that you would like to suggest that maybe we can get him to make his brain work better as far as being able to walk. I'm not well, his , I have serious medical problems and we need help really, really bad or it's gonna be a jail and I don't wanna do that so please give me a call at your earliest convenience. Thank you. Abbey. Message shared with CAR for further guidance. Mary Harrison, YVONNE, RN February 14, 2023 3:04 PM Patient's spouse (Chiquita) called requesting to speak to medical staff regarding Kevin's condition. Chiquita reports Kevin has had an increase in falls/weakness that they believe to be related to Parkinson's. Chiquita also states that Kevin has become more aggressive. Chiquita is very concerned. Please call her at [phone]. Raeann Vizcarra documented in this encounter [facility] 01-13-2023 Miscellaneous Notes Received voicemail 01-13-23 at 12:31 PM. My name is Chiquita Griffith. My phone number is [phone]. This is in regard to Kevin Griffith. I'm calling to return a call. Hopefully someone will call me back again. Sorry I haven't been able to answer the phone this week. I'm not feeling well either. Thank you. Call back to patient's Chiquita to provide message from Dr. Sumner below. Patient's verbalizes understanding. She states they did go to PCP yesterday and he was prescribed a z pack and tessalon perles. CADENCE Byers, RN January 13, 2023 2:32 PM ANAHY for Chiquita to cb Agreed. Consider seeing PCP if cold symptoms not improving. Improvement in Parkinson's symptoms when they are exacerbated by medical illness can lag behind improvement in URI symptoms by days or more. Changing Sinemet during medical illness exacerbations is not helpful. Voicemail received January 10, 2023 [id number] My name is Chiquita Griffith. My phone number is [phone]. My 's name is Kevin Griffith. He is a patient of Dr. Sumner. His birthday is [birth year]. I'm calling to let you know that his symptoms are worsening as far as hand tremors memory and confusion balance, he's been falling over, depression and he's still having trouble sleeping. I'd like to know if you want to change his medication to a slow release instead of the regular sinemet. Please give me a call back and we'll discuss what we need to do to help Kevin. Thank you. Abbey moreno now. Call to patient Reports decline in memory Balance is worsening, unable to walk straight Hand tremors are worse Notice worsening in symptoms about 1 week ago Taking sinemet as ordered, no missed doses. Not noticing symptoms worse before shortly before next scheduled dose. Currently having sinus pressure and increased nasal discharge, cough and sore throat. Symptom onset a little over 1 week ago. is also sick with similar symptoms with symptom onset 2 weeks ago. Currently sinus symptoms are improving still present. Patient informed that is not uncommon for parkinson's symptoms to worsen during illnesses. Advised to continue supportive care at home and to call back with new or worsening symptoms or if no improvement. Routing to provider for review. documented in this encounter [facility] 12-12-2022 Note HNO ID: [id number] Author: Leni Escudero APRN.SERVICE ESTABLISHMENT ATTENDANT Service: ? Author Type: Nurse Practitioner Type: Progress Notes Filed: 12/13/2022 10:48 PM Note Text: [facility] - FOLLOW UP EVALUATION Ja Cooley MD [address] [facility] [address] Dear Ja Cooley MD: I had the pleasure of seeing Mr. Griffith for follow-up today. As you know he is a 77 year old right-handed male with a history of tremor since 2019. He is seen with his , Chiquita. Subjective Previous Plan-08/04/2022 Visit: - consult for psychiatry has been entered. Someone will call you to schedule - no change to Sinemet. It could be helpful to keep a symptom diary for a few days including times of Sinemet doses - increase water intake to 60 ounces per day. Reduce caffeine. - return to PT - follow speech therapy recommendations Interval History: Balance is his main concern. He had been getting physical therapy but has not been able to since September due to his having surgery and not being able to drive him. He has had two falls within the last four months but a lot of close calls as well. Movement Disorders Medications Schedule - as of the start of the visit: Medications 6am 12pm 5pm Sinemet 25/100 2 2 2 Cymbalta 20 mg Parkinson's Motor Complications Medication benefit onset: 60 minutes Medication duration: (Comment: 3-4) Wearing off: yes (Comment: He feels more dizzy and forgetful when it wears off. In general though the mornings are better.) Prior Anti-Parkinson Therapies Carbidopa/Levodopa Other Movement Disorder Prior Therapies Primidone Questionnaires: In addition, the following areas that may be affected by abnormal involuntary movements were evaluated: Daily activities Difficulties with eatin (none) Difficulties in dressing: Yes (slight) Difficulties with hygiene activities: 0 (none) Difficulties with handwriting: Yes (mild) Difficulties with doing hobbies and other activities: 0 (none) Difficulties turning in bed: Yes (slight) Difficulties getting out of bed, car or chair: Yes (slight) Tremors/Gait/Balance Shaking or tremors: Walking and balance problems: Yes (moderate) Number of falls in the Last Month: 0 Gait freezin (none) Autonomic/Pain Lightheadeness on standing: Yes (moderate) Urinary problems: Yes (slight) He is on Flomax and Proscar. Constipation problems: 0 (none) Pain and other sensations: Yes (moderate) Speech/Swallowing Speech problems: 0 (none) Droolin (none) Chewing and swallowing problems: 0 (none) He has been coughing on fluids and it goes down the wrong pipe Sleep/Fatigue Sleep problems: Yes (mild) He has sleep apnea. Daytime sleepiness: Yes (mild) Fatigue: Yes (slight) Mood/Behavior Depression: PHQ-9 Score: 4 usually representing no significant (0-4) depression. Anxiety: MELISSA-7 Total Score: 8 usually representing mild (5-9) anxiety. Finally, the following table shows the patient's overall global physical and mental health using the PROMIS scale: PROMIS-10 Flowsheet Row OT/PT/Speech Visit from 10/04/2022 in [facility] OT/PT/Speech Visit from 08/25/2022 in [facility] Global Physical Health T Score 34.9 34.9 Global Mental Health T Score 36.3 38.8 0-10 Standard Pain Scale 3 3 *PROMIS-10 scoring scale: mean = 50, over 50 is above average, under 50 is below average In addition, the following Parkinson Lifestyle-associated features were evaluated: Conditions Prior to Dx: Depression: Yes Anxiety: No Melanoma: No Constipation: No Yelling: No Head Trauma: Yes Habits/exposures Prior to Dx Smoking: Yes (but quit) Caffeinated coffee (1-cup+): Yes (and still do) Caffeinated soda/tea (2 cups+): No Alcohol (1 bottle/shot/glass+): No Exercise (3x/wk+): No Ibuprofen use (1x/wk+): No Pesticides: Yes (and still do) Welding: No In addition, the following non-motor symptoms and palliative concerns were evaluated: Sleep/Fatigue: REM sleep behavior disorder: no Restless Legs Syndrome: no Leg swelling: Impaired sense of smell: Cognition: Cognitive impairment: yes He said he forgets all of the time and this is one of his other concerns. MoCA Cognitive assessment: 25 Hallucinations and delusions: no Only on Reglan. Apathy: no Impulse control disorder: No Palliative Concerns: Caregiver burden: Spiritual concerns: No Advanced directives on file: No He will bring in a copy. Palliative services: Therapy and Exercise: Last PT Date: Last OT Date: Last ST Date: Exercises Regularly: ALLERGIES Allergen Reactions Reglan [Metoclopram* Mental Status Change psychosis Current Outpatient Medications Medication Sig potassium chloride ER (KLOR-CON M20) 20 mEq tablet once daily. carbidopa-levodopa (SINEMET 25-100) 25-100 mg per tablet Take 2 tablets by mouth three times daily. insulin (more content not included)... [facility] 12-12-2022 Instructions Leni Escudero APRN.GUADALUPE - 12/12/2022 2:56 PM EST It was a pleasure to see you today. We addressed the following diagnoses: Parkinsonism, unspecified parkinsonism type (hcc) (primary encounter diagnosis) My recommendations are as follows: 12/12/2022 Visit: Parkinsonism: Continue Sinemet but change the timing as noted below. If this does not work, we can either change the Sinemet at bedtime to a Sinemet CR or have you take your old schedule (2 tablets three times daily) plus the Sinemet CR Physical therapy and occupational therapy when you are ready (orders are in so you can schedule when ready) Orthostatic hypotension (drops in blood pressure): Change positions slowly Stay well hydrated Avoid overly hot showers and big meals (small more frequent meals is better) Discuss the tamsulosin with your urologist Anxiety: Continue sertraline Dysphagia (difficulty swallowing): Follow the speech therapy recommendations we reviewed Please bring in a copy of your updated advanced directives the next time you come in so that we can have them on file here at the [facility]. Interested in clinical research? Not currently Movement Disorders Medication Schedule: Medications 6am 12pm 5pm Bedtime Sinemet 25/100 2 2 1 1 Sertaline 50mg 1 Return in about 6 months (around 06/11/2023). If there are any concerns before your next visit, please call or you can send a message through [facility]. You can also now schedule and select appointments through [facility]. Leni Escudero APRN.GUADALUPE documented in this encounter [facility] 12-12-2022 History of Present illness Narrative [facility] - FOLLOW UP EVALUATION MD Bessie Gavin E [address] [facility] [id number] Dear Ja Cooley MD: I had the pleasure of seeing Mr. Griffith for follow-up today. As you know he is a 77 year old right-handed male with a history of tremor since 2019. He is seen with his , Chiquita. Subjective Previous Plan-08/04/2022 Visit: - consult for psychiatry has been entered. Someone will call you to schedule - no change to Sinemet. It could be helpful to keep a symptom diary for a few days including times of Sinemet doses - increase water intake to 60 ounces per day. Reduce caffeine. - return to PT - follow speech therapy recommendations Interval History: Balance is his main concern. He had been getting physical therapy but has not been able to since September due to his having surgery and not being able to drive him. He has had two falls within the last four months but a lot of close calls as well. Movement Disorders Medications Schedule - as of the start of the visit: Medications 6am 12pm 5pm Sinemet 25/100 2 2 2 Cymbalta 20 mg Parkinson's Motor Complications Medication benefit onset: 60 minutes Medication duration: (Comment: 3-4) Wearing off: yes (Comment: He feels more dizzy and forgetful when it wears off. In general though the mornings are better.) Prior Anti-Parkinson Therapies Carbidopa/Levodopa Other Movement Disorder Prior Therapies Primidone Questionnaires: In addition, the following areas that may be affected by abnormal involuntary movements were evaluated: Daily activities Difficulties with eatin (none) Difficulties in dressing: Yes (slight) Difficulties with hygiene activities: 0 (none) Difficulties with handwriting: Yes (mild) Difficulties with doing hobbies and other activities: 0 (none) Difficulties turning in bed: Yes (slight) Difficulties getting out of bed, car or chair: Yes (slight) Tremors/Gait/Balance Shaking or tremors: Walking and balance problems: Yes (moderate) Number of falls in the Last Month: 0 Gait freezin (none) Autonomic/Pain Lightheadeness on standing: Yes (moderate) Urinary problems: Yes (slight) He is on Flomax and Proscar. Constipation problems: 0 (none) Pain and other sensations: Yes (moderate) Speech/Swallowing Speech problems: 0 (none) Droolin (none) Chewing and swallowing problems: 0 (none) He has been coughing on fluids and it goes down the wrong pipe Sleep/Fatigue Sleep problems: Yes (mild) He has sleep apnea. Daytime sleepiness: Yes (mild) Fatigue: Yes (slight) Mood/Behavior Depression: PHQ-9 Score: 4 usually representing no significant (0-4) depression. Anxiety: MELISSA-7 Total Score: 8 usually representing mild (5-9) anxiety. Finally, the following table shows the patient's overall global physical and mental health using the PROMIS scale: PROMIS-10 Flowsheet Row OT/PT/Speech Visit from 10/04/2022 in [facility] OT/PT/Speech Visit from 08/25/2022 in [facility] Global Physical Health T Score 34.9 34.9 Global Mental Health T Score 36.3 38.8 0-10 Standard Pain Scale 3 3 *PROMIS-10 scoring scale: mean = 50, over 50 is above average, under 50 is below average In addition, the following Parkinson Lifestyle-associated features were evaluated: Conditions Prior to Dx: Depression: Yes Anxiety: No Melanoma: No Constipation: No Yelling: No Head Trauma: Yes Habits/exposures Prior to Dx Smoking: Yes (but quit) Caffeinated coffee (1-cup+): Yes (and still do) Caffeinated soda/tea (2 cups+): No Alcohol (1 bottle/shot/glass+): No Exercise (3x/wk+): No Ibuprofen use (1x/wk+): No Pesticides: Yes (and still do) Welding: No In addition, the following non-motor symptoms and palliative concerns were evaluated: Sleep/Fatigue: REM sleep behavior disorder: no Restless Legs Syndrome: no Leg swelling: Impaired sense of smell: Cognition: Cognitive impairment: yes He said he forgets all of the time and this is one of his other concerns. MoCA Cognitive assessment: 25 Hallucinations and delusions: no Only on Reglan. Apathy: no Impulse control disorder: No Palliative Concerns: Caregiver burden: Spiritual concerns: No Advanced directives on file: No He will bring in a copy. Palliative services: Therapy and Exercise: Last PT Date: Last OT Date: Last ST Date: Exercises Regularly: ALLERGIES Allergen Reactions Reglan [Metoclopram* Mental Status Change psychosis Current Outpatient Medications Medication Sig potassium chloride ER (KLOR-CON M20) 20 mEq tablet once daily. carbidopa-levodopa (SINEMET 25-100) 25-100 mg per tablet Take 2 tablets by mouth three times daily. insulin glargine U-300 conc (TOUJEO MAX U-300 SOLOSTAR) 300 unit/mL (3 mL) inpn Inject 88 Units subcutaneously. hydroCHLOROthiazide (HYDRODIURIL, ESIDRIX) 12.5 mg tablet Take 12.5 mg by mouth once daily. insulin aspart (NOVOLOG FLEXPEN U-100 INSULIN SUBCUTANEOUS) Inject 300 Units subcutaneously. cholecalciferol, vitamin D3, (VITAMIN D3 50 MCG, 2,000 UNIT, GUMMIES) fluticasone rfuowrh-zthqunfvhxvx-ygwafvlywz (TRELEGY ELLIPTA) 200-62.5-25 mcg powder inhaler Inhale 1 Puff as instructed once daily. aspirin, enteric coated (ASPIRIN, ENTERIC COATED) 81 mg EC tablet Take 81 mg by mouth once daily. tamsulosin (FLOMAX) 0.4 mg Take 0.4 mg by mouth twice daily. pantoprazole DR (PROTONIX) 40 mg tablet Take 40 mg by mouth once daily. albuterol HFA (PROVENTIL HFA, VENTOLIN HFA) 90 mcg/actuation inhaler Inhale 2 Puffs as instructed. metFORMIN ER (GLUCOPHAGE XR) 750 mg 24 hr tablet Take 750 mg by mouth daily with breakfast. pravastatin (PRAVACHOL) 80 mg tablet Take 80 mg by mouth once daily. finasteride (PROSCAR) 5 mg tablet sertraline (ZOLOFT) 50 mg tablet OXYGEN-AIR DELIVERY SYSTEMS MISC Inhale as instructed. FREESTYLE CALIXTO 2 SENSOR kit use to TEST BLOOD SUGAR as directed CHANGE EVERY 14 DAYS SURE COMFORT PEN NEEDLE 31 gauge x 04/04 No current facility-administered medications for this visit. Objective Vital Signs: Ht 177.8 cm (5' 10 ) Wt 118.3 kg (260 lb 12.8 oz) SpO2 96% BMI 37.42 kg/m Orthostatic Vitals: Sitting: BP 124/78 Pulse 114 Standing: BP 105/69 Pulse 115 No LMP for male patient. Body mass index is 37.42 kg/m . Movement Disorders Scales Performed: [place] Cognitive Assessment (MoCA) Visuospatial/Executive 5 Naming 2 Attention 6 Language 1 Abstraction 2 Delayed Memory 2 Orientation 6 Education < or equal to 12 years (1 is true, 0 is false) 1 MoCA Total Score 25 MDS-UPDRS Motor subscale condition of exam Medication Off/On/Naiive ON Time of UPDRS 1422 Time of Last Medication 1200 Last Medication Taken DBS Right DBS Left MDS-UPDRS Motor subscale scores Speech 1-Slight. Loss of modulation, diction or volume, but still all words easy to understand. Facial Expression 1-Slight. Minimal masked facies manifested only by decreased frequency of blinking. Rigidity Neck 0-Normal. No rigidity. Rigidity Right Upper Extremity 0-Normal. No rigidity. Rigidity Left Upper Extremity 0-Normal. No rigidity. Rigidity Right Lower Extremity 0-Normal. No rigidity. Rigidity Left Lower Extremity 0-Normal. No rigidity. Finger Taps Right 1-Slight. a) the regular rhythm is broken with one or two interruptions or hesitations of the tapping movement, b) slight slowing, c) the amplitude decrements near the end of the 10 taps. Finger Taps Left 1-Slight. a) the regular rhythm is broken with one or two interruptions or hesitations of the tapping movement, b) slight slowing, c) the amplitude decrements near the end of the 10 taps. Hand Movements Right 0-Normal. No problem. Hand Movements Left 0-Normal. No problem. Arm Movements Right 1-Slight. a) the regular rhythm is broken with one or two interruptions or hesitations of the movement, b) slight slowing, c) the amplitude decrements near the end of the sequence. Arm Movements Left 1-Slight. a) the regular rhythm is broken with one or two interruptions or hesitations of the movement, b) slight slowing, c) the amplitude decrements near the end of the sequence. Toe Taps Right 1-Slight. a) the regular rhythm is broken with one or two interruptions or hesitations of the tapping movement, b) slight slowing, c) the amplitude decrements near the end of the ten taps. Toe Taps Left 1-Slight. a) the regular rhythm is broken with one or two interruptions or hesitations of the tapping movement, b) slight slowing, c) the amplitude decrements near the end of the ten taps. Leg Agility Right 1-Slight. a) the regular rhythm is broken with one or two interruptions or hesitations of the movement, b) slight slowing, c) the amplitude decrements near the end of the task. Leg Agility Left 1-Slight. a) the regular rhythm is broken with one or two interruptions or hesitations of the movement, b) slight slowing, c) the amplitude decrements near the end of the task. Arise From Chair 1-Slight. Arising is slower than normal, or may need more than one attempt, or may need to move forward in the chair to arise. No need to use the arms of the chair. Gait 1-Slight. Independent walking with minor gait impairment. (reduced right arm swing) Gait Freezing 0-Normal. No freezing. Posture Stability Posture 0-Normal. No problems. Body Bradykinesia 0-Normal. No problems. Postural Tremor Hand Right 2-Mild. Tremor is at least 1 but less than 3 cm in amplitude. Postural Tremor Hand Left 2-Mild. Tremor is at least 1 but less than 3 cm in amplitude. Kinetic Tremor Right 0-Normal. No tremor. Kinetic Tremor Left 0-Normal. No tremor. Rest Tremor Amplitude Right Upper Extremity 0-Normal. No tremor. Rest Tremor Amplitude Left Upper Extremity 0-Normal. No tremor. Rest Tremor Amplitude Right Lower Extremity 0-Normal. No tremor. Rest Tremor Amplitude Right Lower Extremity 0-Normal. No tremor. Rest Tremor Amplitude Lip/Jaw Rest Tremor Constancy 0-Normal. No tremor. Pertinent Studies DaTscan 12/15/21 Abnormal DaTscan. 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 MRI brain, cervical spine 09/04/2021 Impression: No acute intracranial abnormality. Chronic small vessel ischemic and senescent changes as discussed. No acute findings in the cervical spine. Multilevel degenerative changes with mild multilevel spinal canal narrowing and multilevel foraminal narrowing as discussed. No high-grade canal or foraminal narrowing at any level. Anatomic Variant: None. Assume 7 cervical vertebrae with counting from the craniocervical junction. Assessment and Plan: Assessment Mr. Griffith is a right-handed 77 year old year old male with tremor and gait instability. At initial visit, tremors were felt to be clinically consistent with ET. There was no rigidity. Mild bradykinesia only at lower extremities. Gait abnormal but not parkinsonian. 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 Started on Sinemet which caused side effects at 6/day. Tried to taper off it but he experiences return of tremors and confusion at dose of 3/day. He is currently taking two tablets two times daily. His main concern is his balance and I have ordered physical therapy for this. Occupational therapy and a change in Sinemet timing will hopefully help some of his Parkinson's disease motor symptoms as well. Non-motor symptoms were addressed as noted below. The following are the current problems noted and addressed during this visit: Parkinsonism, unspecified parkinsonism type (hcc) (primary encounter diagnosis) Orthostatic hypotension Anxiety Plan 12/12/2022 Visit: Parkinsonism: Continue Sinemet but change the timing as noted below. If this does not work, we can either change the Sinemet at bedtime to a Sinemet CR or have you take your old schedule (2 tablets three times daily) plus the Sinemet CR Physical therapy and occupational therapy when you are ready (orders are in so you can schedule when ready) Orthostatic hypotension (drops in blood pressure): Change positions slowly Stay well hydrated Avoid overly hot showers and big meals (small more frequent meals is better) Discuss the tamsulosin with your urologist Anxiety: Continue sertraline Dysphagia (difficulty swallowing): Follow the speech therapy recommendations we reviewed Please bring in a copy of your updated advanced directives the next time you come in so that we can have them on file here at the [facility]. Interested in clinical research? Not currently Updated Movement Disorders Medication Schedule: Medications 6am 12pm 5pm Bedtime Sinemet 25/100 2 2 1 1 Sertaline 50mg 1 Level of service : 32538 (40-54 min). Time spent 51 ( 1:54pm-2:45pm) min on the day of service, which included preparing to see the patient, [id number] patient care, completing clinical documentation, obtaining and/or reviewing separately obtained history, performing a medically appropriate examination, and counseling and educating the patient/family/caregiver. Leni Escudero APRN.GUADALUPE documented in this encounter [facility] 10-10-2022 Miscellaneous Notes Thanks for the FYI. Well done! JHS Received voicemail from patient on 10/10/2022 9:09 AM Transcript below: Morning this is Kevin Griffith and my phone number is [phone]. I calling to find out if there's a way to rearrange these CL pills that I'm taking. I seem to have more of Parkinson's shakes and what have you early in the morning and I am now taking them at 6:00 AM noon and 6:00 PM. Thank you very much. Bye now. Returned call to patient to reviewed message and symptoms. No answer. Voicemail left directing patient to a detailed [facility]ASSS[facility] message. Requested reply via MC or [facility]. Provided office number. Message shared with covering provider as KA is HUGO. Mary Harrison MSN, RN October 10, 2022 2:44 PM documented in this encounter [facility] 10-04-2022 Note HNO ID: [id number] Author: Kori Acevedo, PT, DPT Service: ? Author Type: Physical Therapist Type: Progress Notes Filed: 10/04/2022 3:13 PM Note Text: Episode Visit Count: 4 Therapist That Will Accept/Oversee The Plan Of Care: Kori Acevedo Start of Care Date: 08/11/22 Onset Date: 11/20/20 Plan of Care Certification Date: 08/11/22 Next Certification Due Date: 10/20/22 Patient Identified by Name and Date of : Yes REHABILITATION AND SPORTS THERAPY PHYSICAL THERAPY TREATMENT NOTE ASSESSMENT: Kevin Griffith tolerated the session with no issues. He demonstrated ability to take good strides with good balance in large gym space. DIscussed bodies tendency to move small in small spaces or distances. Discussed BIG principles to combat this. The patient will continue to benefit from ongoing skilled physical therapy for reassessment by supervising therapist. PLAN FOR NEXT VISIT: Recheck visit. Follow up via phone in 1-3 months SUBJECTIVE: Patient Reason for Visit: No new falls. But still feeling very unstable. Balance is worse in the morning before his meds kick in (takes at 6am, 12, and 6pm). Wakes at 4-5am. Notes balance has good and bad days. notes pt has been sleeping poorly due to her new cancer dx. Balance feels like he staggers. Pain: Pain Pain Level: 0 Post Treatment Pain Post Treatment Pain Level: No Change OBJECTIVE MEASURES WITH LEVEL OF FUNCTION: 4 Stage Balance Test Narrow base of support (sec): 10 sec Semi-tandem base of support (sec): 10 sec Tandem base of support (sec): 30 sec Single leg stance - right (sec): 14 sec Single leg stance - left (sec): 2.6 sec TREATMENT: Neuromuscular Re-Education: 1: Outcomes completed Skilled Intervention: Proper implementation of objective outcomes with explanation of findings/deficits. Proper patient guarding to prevent falls/increase patient safety. Gait Trainin: Education on fatigue and increased or decreased acitivyt; goals for activity outside of therapy 2: Education on BIG steps with gait including small spaces and distance AND limiting dual task 3: Gait training, level surface x 150 ft 4: Gait trainign, short distance and small spaces Skilled Intervention: Patient was provided stand by assist during pre-gait/gait training to prevent falls and insure safety. Facilitated proper gait cycle with the use of verbal cues for correction of gait deviations identified in the objective section above. Education as above Billing Neuromuscular Re-Education Treatment Minutes: 5 Gait Training Treatment Minutes: 35 Total Treatment Time Minutes (timed/untimed): 45 Kori Acevedo, PT, DPT [facility] 10-04-2022 History of Present illness Narrative Episode Visit Count: 4 Therapist That Will Accept/Oversee The Plan Of Care: Kori Acevedo Start of Care Date: 08/11/22 Onset Date: 11/20/20 Plan of Care Certification Date: 08/11/22 Next Certification Due Date: 10/20/22 Patient Identified by Name and Date of : Yes REHABILITATION AND SPORTS THERAPY PHYSICAL THERAPY TREATMENT NOTE ASSESSMENT: Kevin Griffith tolerated the session with no issues. He demonstrated ability to take good strides with good balance in large gym space. DIscussed bodies tendency to move small in small spaces or distances. Discussed BIG principles to combat this. The patient will continue to benefit from ongoing skilled physical therapy for reassessment by supervising therapist. PLAN FOR NEXT VISIT: Recheck visit. Follow up via phone in 1-3 months SUBJECTIVE: Patient Reason for Visit: No new falls. But still feeling very unstable. Balance is worse in the morning before his meds kick in (takes at 6am, 12, and 6pm). Wakes at 4-5am. Notes balance has good and bad days. notes pt has been sleeping poorly due to her new cancer dx. Balance feels like he staggers. Pain: Pain Pain Level: 0 Post Treatment Pain Post Treatment Pain Level: No Change OBJECTIVE MEASURES WITH LEVEL OF FUNCTION: 4 Stage Balance Test Narrow base of support (sec): 10 sec Semi-tandem base of support (sec): 10 sec Tandem base of support (sec): 30 sec Single leg stance - right (sec): 14 sec Single leg stance - left (sec): 2.6 sec TREATMENT: Neuromuscular Re-Education: 1: Outcomes completed Skilled Intervention: Proper implementation of objective outcomes with explanation of findings/deficits. Proper patient guarding to prevent falls/increase patient safety. Gait Trainin: Education on fatigue and increased or decreased acitivyt; goals for activity outside of therapy 2: Education on BIG steps with gait including small spaces and distance & limiting dual task 3: Gait training, level surface x 150 ft 4: Gait trainign, short distance and small spaces Skilled Intervention: Patient was provided stand by assist during pre-gait/gait training to prevent falls and insure safety. Facilitated proper gait cycle with the use of verbal cues for correction of gait deviations identified in the objective section above. Education as above Billing Neuromuscular Re-Education Treatment Minutes: 5 Gait Training Treatment Minutes: 35 Total Treatment Time Minutes (timed/untimed): 45 Kori Acevedo PT, DPT documented in this encounter [facility] 09-16-2022 Miscellaneous Notes Addended by: JAYLYN SUMNER on: 09/16/2022 12:50 PM Modules accepted: Orders The following approved medication requests have been transmitted electronically. Requested Prescriptions Signed Prescriptions Disp Refills DULoxetine (CYMBALTA) 30 mg capsule 90 capsule 3 Sig: Take 1 capsule by mouth once daily. Jaylyn Sumner MD Addended by: LENA MAY on: 09/16/2022 11:43 AM Modules accepted: Orders Script pending to go to [facility]. documented in this encounter [facility] 09-16-2022 Miscellaneous Notes Called and left voicemail that an updated RX had been sent for the Cymbalta. Provided office number for [facility] and option to message via YASSSU. YVONNE Naik, RN September 16, 2022 8:48 AM The following approved medication requests have been transmitted electronically. Requested Prescriptions Signed Prescriptions Disp Refills DULoxetine (CYMBALTA) 30 mg capsule 90 capsule 3 Sig: Take 1 capsule by mouth once daily. Authorizing Provider: JAYLYN SUMNER MD Patient will be seen by another physician in the PCP practice to evaluate him for the falls. shared that they are onboard with increasing the Cymbalta. The patient also had a panic attack several weeks ago so that supports the increase in the Cymbalta. New order pended to this encounter. YVONNE Naik, RN September 15, 2022 4:40 PM Called daughter Barbi and shared update. She will confer with her mother and father and update the office as needed. YVONNE Naik, RN September 14, 2022 2:42 PM Agree that the knee needs to get evaluated. Having PT evaluate for an injury is not appropriate, that's not what they do. Best intervention for worsening balance is PT. He had felt lightheaded at visit but negative orthostatics, continue to encourage fluids. For the mood we could increase Cymbalta to 30 mg if he's agreeable. returned call. Last week he walked right off of our deck. It has 3 steps. When he fell his leg bad, his right leg was bent and his heel was all the way up to his butt. He had to crawl all the way across the concrete to get to the patio where he could stand up. The back of his right knee is all black and blue. Patient was not evaluated post fall. wants him to go, but he says I cant have surgery what can they do. There is a place on the outside of knee that is protruding. It is painful. He is taking pain medication and the oxycodone is helping with relief. He has PT tomorrow. Hesitant to go but is enforcing it and hoping he will be evaluated there. His gait is worse, stumbling and staggered like he's drunk. Cognitively, he can't follow a story line on TV anymore. Tremors have become very bad in hands and arm after doing work, physical work around the house like raking leaves. No recent changes in medication. He is a brittle diabetic on sliding scale insulin. No recent acute illness either. Mood changes and some sadness/ depression. Additional stressors as is not well at this time and is to be having some testing done for herself as well. is being evaluated for colon cancer, Endoscopy and colonoscopy as well as CT scan tomorrow. Daughter Barbi aware and concerned as well. She is an active part of the family's care. Update shared with CAR. Mary Harrison, MSN, RN September 14, 2022 1:54 PM Returned call to Chiquita. No reply, left detailed message requesting [facility]. Provided office number for call back. Awaiting reply. YVONNE Naik, RN September 13, 2022 12:31 PM NI PHONE NAME OF CALLER: Chiquita RELATIONSHIP TO PATIENT: spouse PATIENT ID'D BY NAME/: yes REASON FOR CALL: States that his PD symptoms are worsening and she would like to speak with Stefania. CALLBACK #: [phone] OK TO LEAVE MESSAGE: ok only on this number - do not leave at home number LAST FUV: 08/04/22 with KA documented in this encounter [facility] 09-15-2022 Note HNO ID: [id number] Author: Kori Acevedo, PT, DPT Service: ? Author Type: Physical Therapist Type: Progress Notes Filed: 09/15/2022 6:16 PM Note Text: Episode Visit Count: 3 Therapist That Will Accept/Oversee The Plan Of Care: Kori Acevedo Start of Care Date: 08/11/22 Onset Date: 11/20/20 Plan of Care Certification Date: 08/11/22 Next Certification Due Date: 10/20/22 Patient Identified by Name and Date of : Yes REHABILITATION AND SPORTS THERAPY PHYSICAL THERAPY PROGRESS REPORT PLAN OF CARE UPDATE: Assessment: Kevin Griffith demonstrates improvements in strength. He hasmet 1 goals and progressed toward goals. Patient continues to present with impairments in balance, gait, independence in exercise, and overall function that interfere with walking;standing;stair negotiation;Comments;heavy exertion;physical activities;lifting;driving;carryi ng . Current prognosis is Good due to: current objective clinical presentation;Prognosis may be limited due to chronic nature of impairments . He will benefit from continued skilled therapy services to meet the updated goals for this plan of care as noted below. Goals for Episode of Care: updated 09/15/2022 Patient will increase strength of B LE to grossly 5/5 to allow patient to improve gait mechanics/gait pattern.--MET Patient will verbalize more confidence ambulating on grass without assistive device with modified independence. --continue to assess Patient will demonstrate current home exercise program independently. --continue to assess Patient will improve single leg stance time to 12 seconds on Bilateral Legs to improve balance. --continue to assess Patient Goals: Walk more stable. Planned Interventions, Frequency, and Duration: 1x every other week, 5 weeks Total Number of Visits Planned: 3 Patient to be seen for Therapeutic exercise (46173);Neuromuscular re-education (09884);Manual therapy (34114);Therapeutic activities (91532);Self-nursing home management (11798);Gait Training (80249);Functional training;General Conditioning;Body Mechanics Training;Patient/Family/Caregiver Education PLAN FOR NEXT VISIT: Assess response from MD appt. Further posture and balance work as knee allows. Work on endurance. SUBJECTIVE: Patient Reason for Visit: Fell about 6 days ago down 3 steps. Knee fully bent pretty aggregssively.. Functional Limitations: walking;standing;stair negotiation;Comments;heavy exertion;physical activities;lifting;driving;carryi ng Pain: Pain Pain Level: 4 Pain Location: Knee - Right Description: Sore Frequency: At rest Post Treatment Pain Post Treatment Pain Level: No Change PROMIS Scales Higher is Better 08/30/2021 03/11/2022 08/22/2022 Phys Func - Score - - 39 (moderate dysfunction) Phys Func - Percentile - - 14 % GH Physical - Score 42.3 (Good) 34.9 (Poor) 34.9 (Poor) GH Physical - Percentile 22 % 7 % 7 % GH Mental - Score 48.3 (Very Good) 36.3 (Fair) 38.8 (Fair) GH Mental - Percentile 43 % 9 % 13 % Self-Eff Symptom - Score - - 41 (Average) Self-Eff Symptom - Percentile - - 18 % T-scores: mean of general population = 50. 5 points is clinically meaningfully difference Percentiles provide an indication of how the patient's score ranks in relation to the general population. Higher percentile rankings indicate better function/quality of life. 50th percentile is the average of the general population and indicates half of respondents had a worse score. T-scores: mean of general population = 50. 5 points is clinically meaningfully difference Percentiles provide an indication of how the patient's score ranks in relation to the general population. Higher percentile rankings indicate better function/quality of life. 50th percentile is the average of the general population and indicates half of respondents had a worse score. OBJECTIVE MEASURES WITH LEVEL OF FUNCTION: Cognition Cognition: Behavior Behavior: Reluctant Posture / Alignment Posture: Forward head;Rounded shoulders LE Strength R Hip ABduction: 5/5 R Ankle Inversion: 5/5 R Ankle Eversion: 5/5 L Hip ABduction: 4+/5 L Ankle Inversion: 5/5 L Ankle Eversion: 5/5 Gait Gait: Stand By Assistance Gait Device: None Gait Observation: Unsteady due to new onset knee pain TREATMENT: Therapeutic Exercise: 1: Reassessment completed 2: Abdominal brace 3 sec hold x 10 3: Seated bkwd leans x 10 4: tband shoulder ER x 10 (red) 5: tband shoulder horizontal abd x 10 (red) 6: Tband rows x 20 (red) 7: Lateral leans x 10 each Skilled Intervention: Proper technique AND skills to assess ROM AND strength to properly adjust plan of care. Proper selection of treatments for this session based on clinical presentation, deficits, and needs. Patient educated on technique for exercises/activities performed this session. Billing Therapeutic Exercise Treatment Minutes: 40 Total Treatment Time Minutes (timed/untimed): 45 (more content not included)... [facility] 09-02-2022 Note HNO ID: [id number] Author: Aleida Ramirez MD Service: ? Author Type: Physician Type: Progress Notes Filed: 09/02/2022 11:57 AM Note Text: PSYC NEW - PSYCHIATRIC ASSESSMENT Patient was seen for an initial evaluation. With the patient consent, visit was performed virtually. All information is from Patient report except when noted. This evaluation is NOT intended for forensic, disability or child custody purposes. AGE: [age] year old RACE: White MARITAL STATUS: OCCUPATION: Retired The pt did connect via Zoom, however there was a problem with video, pt could see me, I could not see the pt. REFERRAL SOURCE: [facility] Physician - Dr. Sumner CHIEF COMPLAINT: Anxiety. HPI: The patient is a 77-year-old male with a past medical history of Parkinson's, seen virtually for initial psychiatric evaluation. The patient reports that he has mostly stopped driving, however driving short distances. He is unsteady and should be using a cane. Has not fallen in the last 3 months. He is mostly independent. Patient is seen for management of anxiety. He had seen his neurologist 1 month earlier had been started on low-dose Cymbalta. The patient reports that he has been struggling with anxiety for this year. Feels that the Cymbalta had helped with his anxiety, noting that he is arguing less with his . Patient also reports that his mood has been stable. Denies any SI, no intent or plan at this time. Sleep remains a challenge for him, as he has a CPAP machine, has a lot of difficulty falling asleep. Feels that his memory continues to get worse. Notes that he is much more forgetful, now needs to write things down on paper in order to remember them. We discussed medication options, at this time and the patient feels that the dose of Cymbalta has been helping him. We opted to remain on this current dose, which will see how his anxiety does over the next few months. He was encouraged to reach out to me should his anxiety get worse. For now we will continue Cymbalta 20 mg once daily. I did recommend that he try to refrain from using hydroxyzine at bedtime, as this medication could worsen his confusion. Sleep: difficulty staying asleep, difficulty falling asleep Interest: diminished Guilt: none Energy: fluctuates with mood or stress Concentration: fluctuates Appetite: good Psychomotor Activity: psychomotor activity was WNL. Suicide: None Phobias: no irrational fears Memory: Poor, Immediate Anxiety: mild Obsessions: none Compulsions: none Corby: Denies any symptoms of corby PTSD: The patient denies being expose to or witnessing traumatic events. Self Mutilation: Denies PAST MEDICAL HISTORY Diagnosis Date Chronic obstructive pulmonary disease (COPD) ([facility]) Diabetes ([facility]) Generalized anxiety disorder H/O seasonal allergies Mixed hyperlipidemia Sleep apnea PAST SURGICAL HISTORY Procedure Laterality Date ADDITIONAL SPINAL FUSION 2000 L4, L3 ELBOW SURGERY HX 1994 Left EXTENSIVE FOREARM SURGERY Left 07/04/2018 Overgrown bone had shortened and plate placed- Per Patient LAPAR LUMBAR FUSION ADDITIONAL 2019 S LEAD SPINAL CORD STIMULATOR 05/19/2021 TOTAL KNEE REPLACEMENT Left 08/14/2006 TOTAL KNEE REPLACEMENT Right 07/30/2012 Current Outpatient Medications Medication Sig Dispense Refill losartan (COZAAR) 50 mg tablet Take 50 mg by mouth once daily. carbidopa-levodopa (SINEMET 25-100) 25-100 mg per tablet Take 2 tablets by mouth three times daily. 540 tablet 3 DULoxetine (CYMBALTA) 20 mg capsule Take 1 capsule by mouth once daily. 90 capsule 3 hydrOXYzine HCl (ATARAX) 25 mg tablet Take 25 mg by mouth daily at bedtime. insulin glargine U-300 conc (TOUJEO MAX U-300 SOLOSTAR) 300 unit/mL (3 mL) inpn Inject 88 Units subcutaneously. hydroCHLOROthiazide (HYDRODIURIL, ESIDRIX) 12.5 mg tablet Take 12.5 mg by mouth once daily. insulin aspart (NOVOLOG FLEXPEN U-100 INSULIN SUBCUTANEOUS) Inject 300 Units subcutaneously. cholecalciferol, vitamin D3, (VITAMIN D3 50 MCG, 2,000 UNIT, GUMMIES) oxyCODONE-acetaminophen 5-325 mg (PERCOCET) Take 1 tablet by mouth twice daily. fluticasone huhgbhs-yesupsgznnid-xyduuihxqr (TRELEGY ELLIPTA) 200-62.5-25 mcg powder inhaler Inhale 1 Puff as instructed once daily. aspirin, enteric coated (ASPIRIN, ENTERIC COATED) 81 mg EC tablet Take 81 mg by mouth once daily. tamsulosin (FLOMAX) 0.4 mg Take 0.4 mg by mouth twice daily. pantoprazole DR (PROTONIX) 40 mg tablet Take 40 mg by mouth once daily. albuterol HFA (PROVENTIL HFA, VENTOLIN HFA) 90 mcg/actuation inhaler Inhale 2 Puffs as instructed. metFORMIN ER (GLUCOPHAGE XR) 750 mg 24 hr tablet Take 750 mg by mouth daily with breakfast. pravastatin (PRAVACHOL) 80 mg tablet Take 80 mg by mouth once daily. No current facility-administered medications for this visit. VITAL SIGNS: There were no vitals filed for this visit. ROS: GENERAL: Negative for malaise, signif (more content not included)... [facility] 09-02-2022 History of Present illness Narrative Images from the original note were not included. PSYC NEW - PSYCHIATRIC ASSESSMENT Patient was seen for an initial evaluation. With the patient consent, visit was performed virtually. All information is from Patient report except when noted. This evaluation is NOT intended for forensic, disability or child custody purposes. AGE: [age] year old RACE: White MARITAL STATUS: OCCUPATION: Retired The pt did connect via Zoom, however there was a problem with video, pt could see me, I could not see the pt. REFERRAL SOURCE: [facility] Physician - Dr. Sumner CHIEF COMPLAINT: Anxiety. HPI: The patient is a 77-year-old male with a past medical history of Parkinson's, seen virtually for initial psychiatric evaluation. The patient reports that he has mostly stopped driving, however driving short distances. He is unsteady and should be using a cane. Has not fallen in the last 3 months. He is mostly independent. Patient is seen for management of anxiety. He had seen his neurologist 1 month earlier had been started on low-dose Cymbalta. The patient reports that he has been struggling with anxiety for this year. Feels that the Cymbalta had helped with his anxiety, noting that he is arguing less with his . Patient also reports that his mood has been stable. Denies any SI, no intent or plan at this time. Sleep remains a challenge for him, as he has a CPAP machine, has a lot of difficulty falling asleep. Feels that his memory continues to get worse. Notes that he is much more forgetful, now needs to write things down on paper in order to remember them. We discussed medication options, at this time and the patient feels that the dose of Cymbalta has been helping him. We opted to remain on this current dose, which will see how his anxiety does over the next few months. He was encouraged to reach out to me should his anxiety get worse. For now we will continue Cymbalta 20 mg once daily. I did recommend that he try to refrain from using hydroxyzine at bedtime, as this medication could worsen his confusion. Sleep: difficulty staying asleep, difficulty falling asleep Interest: diminished Guilt: none Energy: fluctuates with mood or stress Concentration: fluctuates Appetite: good Psychomotor Activity: psychomotor activity was WNL. Suicide: None Phobias: no irrational fears Memory: Poor, Immediate Anxiety: mild Obsessions: none Compulsions: none Corby: Denies any symptoms of corby PTSD: The patient denies being expose to or witnessing traumatic events. Self Mutilation: Denies PAST MEDICAL HISTORY Diagnosis Date Chronic obstructive pulmonary disease (COPD) ([facility]) Diabetes ([facility]) Generalized anxiety disorder H/O seasonal allergies Mixed hyperlipidemia Sleep apnea PAST SURGICAL HISTORY Procedure Laterality Date ADDITIONAL SPINAL FUSION 2000 L4, L3 ELBOW SURGERY HX 1994 Left EXTENSIVE FOREARM SURGERY Left 07/04/2018 Overgrown bone had shortened and plate placed- Per Patient LAPAR LUMBAR FUSION ADDITIONAL 2019 S LEAD SPINAL CORD STIMULATOR 05/19/2021 TOTAL KNEE REPLACEMENT Left 08/14/2006 TOTAL KNEE REPLACEMENT Right 07/30/2012 Current Outpatient Medications Medication Sig Dispense Refill losartan (COZAAR) 50 mg tablet Take 50 mg by mouth once daily. carbidopa-levodopa (SINEMET 25-100) 25-100 mg per tablet Take 2 tablets by mouth three times daily. 540 tablet 3 DULoxetine (CYMBALTA) 20 mg capsule Take 1 capsule by mouth once daily. 90 capsule 3 hydrOXYzine HCl (ATARAX) 25 mg tablet Take 25 mg by mouth daily at bedtime. insulin glargine U-300 conc (TOUJEO MAX U-300 SOLOSTAR) 300 unit/mL (3 mL) inpn Inject 88 Units subcutaneously. hydroCHLOROthiazide (HYDRODIURIL, ESIDRIX) 12.5 mg tablet Take 12.5 mg by mouth once daily. insulin aspart (NOVOLOG FLEXPEN U-100 INSULIN SUBCUTANEOUS) Inject 300 Units subcutaneously. cholecalciferol, vitamin D3, (VITAMIN D3 50 MCG, 2,000 UNIT, GUMMIES) oxyCODONE-acetaminophen 5-325 mg (PERCOCET) Take 1 tablet by mouth twice daily. fluticasone xzodaoz-zprhpyzhkiyq-xrhafgrfsh (TRELEGY ELLIPTA) 200-62.5-25 mcg powder inhaler Inhale 1 Puff as instructed once daily. aspirin, enteric coated (ASPIRIN, ENTERIC COATED) 81 mg EC tablet Take 81 mg by mouth once daily. tamsulosin (FLOMAX) 0.4 mg Take 0.4 mg by mouth twice daily. pantoprazole DR (PROTONIX) 40 mg tablet Take 40 mg by mouth once daily. albuterol HFA (PROVENTIL HFA, VENTOLIN HFA) 90 mcg/actuation inhaler Inhale 2 Puffs as instructed. metFORMIN ER (GLUCOPHAGE XR) 750 mg 24 hr tablet Take 750 mg by mouth daily with breakfast. pravastatin (PRAVACHOL) 80 mg tablet Take 80 mg by mouth once daily. No current facility-administered medications for this visit. VITAL SIGNS: There were no vitals filed for this visit. ROS: GENERAL: Negative for malaise, significant weight loss and fever All other systems negative. PSYCHIATRIC HISTORY: Prior Diagnosis: None Prior Provider: No prior psychiatrist Therapist: No prior therapist Current Picker Feeder: None Last Hospitalization: Denies hospitalization. ECT: None Previous Discontinued Psychiatric Med Trials: None SUBSTANCE USE HISTORY: Nicotine: 40 py, quit 23 years ago Caffeine: Coffee, 3 cups/day Alcohol: Drank when he was younger, Marijuana: No history of use or dependence Cocaine: No history of use or dependence Opiods: No history of use or dependence SPIRITUALITY: Protestant [facility]: Kevin Griffith is the oldest of 6 siblings. The patient was born and raised in [place]. He completed school He described his childhood as normal. The patient lives with spouse. Service: None Legal: Pt. denied any past legal history FAMILY PSYCHIATRIC HISTORY: No family psychiatric or substance abuse history PATIENT DATA: Generalized Anxiety Disorder Scale (MELISSA-7) MELISSA - 7 SCORES 08/30/2021 03/11/2022 08/29/2022 MELISSA-7 Score 2 7 4 (0-4) minimal anxiety, (5-9) mild anxiety, (10-14) moderate anxiety, (15-21) severe anxiety Patient Health Questionnaire (PHQ-9) PHQ-9 08/30/2021 03/11/2022 08/29/2022 Score 2 10 5 (0-4) minimal depression, (5-9) mild depression, (10-14) moderate depression, (15-19) moderately severe depression, (20-27) severe depression PROMIS Global Health PROMIS Global Health - (T-Scores - the mean of general population = 50. Five points is a clinically meaningful difference.) 08/30/2021 03/11/2022 08/22/2022 Physical T-Score 42.3 34.9 34.9 Mental T-Score 48.3 36.3 38.8 MENTAL STATUS EXAMINATION: Appearance: NA Behavior: Behaves appropriately during the encounter Social relatedness: Euthymic Speech/Language: The patient demonstrates appropriate tone, prosody, richard, phonetics, and syntax Mood: euthymic Affect: Full and appropriate to topic Orientation: Person, Place, Time and Situation Associations: Intact and linear Hallucinations: None Delusions: None Suicidal Ideation: No suicidal ideation, intent or plan. Homicidal Ideation: No homicidal ideation, intent or plan. Insight: Recognizes presence of illness Judgment: Appropriate IMPRESSION: Significant anxiety and mood issues, but seems to have improved with initiation of cymbalta. Advised to continue regimen as is for now. DIAGNOSIS: PRIMARY: Anxiety Disorder Generalized Anxiety Disorder SECONDARY: Mood Disorder Depressive Disorder NOS Other : None GAF: 55 -60-51 Moderate symptoms or moderate difficulty in social, occupational or school functioning. PLAN: 1. Continue cymbalta 20 mg QD DISPOSITION: F/U in 3 months I spent a total of 60 minutes on the date of the service which included preparing to see the patient and completing clinical documentation. ADD ON PSYCHOTHERAPY CODE : No SIGNATURE: Aleida Ramirez MD PATIENT NAME: Kevin Griffith DATE: September 02, 2022 TIME: 9:05 AM PAGER : see directory documented in this encounter [facility] 08-25-2022 Note HNO ID: [id number] Author: Kori Acevedo, PT, DPT Service: ? Author Type: Physical Therapist Type: Progress Notes Filed: 08/25/2022 6:11 PM Note Text: Episode Visit Count: 2 Therapist That Will Accept/Oversee The Plan Of Care: Kori Acevedo Start of Care Date: 08/11/22 Onset Date: 11/20/20 Plan of Care Certification Date: 08/11/22 Next Certification Due Date: 10/20/22 Patient Identified by Name and Date of : Yes REHABILITATION AND SPORTS THERAPY PHYSICAL THERAPY TREATMENT NOTE ASSESSMENT: Kevin Griffith tolerated the session with no issues. He demonstrated Lack of hip stability and core stability noted while doing ex. Cues for slow performance with ex as well. Education on way to manually decrease neck pain. Education on proper postures when reading at night. . The patient will continue to benefit from ongoing skilled physical therapy to progress toward set goals. PLAN FOR NEXT VISIT: Add nustep. Further hip AND core strength. Balance on foam. SUBJECTIVE: Patient Reason for Visit: Was feeling good until today when saw pain management as usually increases his pain. Pain: Pain Pain Level: 5 Pain Location: Back Description: Sore Frequency: At rest Post Treatment Pain Post Treatment Pain Level: No Change OBJECTIVE MEASURES WITH LEVEL OF FUNCTION: Core weakness noted TREATMENT: Therapeutic Exercise: 3: Bridges, 2 x 10 4: tband B hip abd x 10 green band; unilateral x 10 each 5: Supine full knee to chest to ext x 10 each 6: Abdominal brace x 10 7: Supine cervical retraction x 10, 10 sec hold 8: *Seated L levator stretch x 30 9: *Seated L SCM stretch x 30 Skilled Intervention: Proper selection of treatments for this session based on clinical presentation, deficits, and needs. Patient educated on technique for exercises/activities performed this session. Exercise handouts for new home exercises complied AND distributed to patient. Billing Therapeutic Exercise Treatment Minutes: 38 Total Treatment Time Minutes (timed/untimed): 38 Kori Acevedo, PT, DPT [facility] 08-25-2022 History of Present illness Narrative Episode Visit Count: 2 Therapist That Will Accept/Oversee The Plan Of Care: Kori Acevedo Start of Care Date: 08/11/22 Onset Date: 11/20/20 Plan of Care Certification Date: 08/11/22 Next Certification Due Date: 10/20/22 Patient Identified by Name and Date of : Yes REHABILITATION AND SPORTS THERAPY PHYSICAL THERAPY TREATMENT NOTE ASSESSMENT: Kevin Griffith tolerated the session with no issues. He demonstrated Lack of hip stability and core stability noted while doing ex. Cues for slow performance with ex as well. Education on way to manually decrease neck pain. Education on proper postures when reading at night. . The patient will continue to benefit from ongoing skilled physical therapy to progress toward set goals. PLAN FOR NEXT VISIT: Add nustep. Further hip & core strength. Balance on foam. SUBJECTIVE: Patient Reason for Visit: Was feeling good until today when saw pain management as usually increases his pain. Pain: Pain Pain Level: 5 Pain Location: Back Description: Sore Frequency: At rest Post Treatment Pain Post Treatment Pain Level: No Change OBJECTIVE MEASURES WITH LEVEL OF FUNCTION: Core weakness noted TREATMENT: Therapeutic Exercise: 3: Bridges, 2 x 10 4: tband B hip abd x 10 green band; unilateral x 10 each 5: Supine full knee to chest to ext x 10 each 6: Abdominal brace x 10 7: Supine cervical retraction x 10, 10 sec hold 8: *Seated L levator stretch x 30 9: *Seated L SCM stretch x 30 Skilled Intervention: Proper selection of treatments for this session based on clinical presentation, deficits, and needs. Patient educated on technique for exercises/activities performed this session. Exercise handouts for new home exercises complied & distributed to patient. Billing Therapeutic Exercise Treatment Minutes: 38 Total Treatment Time Minutes (timed/untimed): 38 Kori Acevedo PT, DPT documented in this encounter [facility] 08-11-2022 Note HNO ID: [id number] Author: Kori Acevedo PT, DPT Service: ? Author Type: Physical Therapist Type: Progress Notes Filed: 08/11/2022 1:45 PM Note Text: Episode Visit Count: 1 Therapist That Will Accept/Oversee The Plan Of Care: Kori Acevedo Start of Care Date: 08/11/22 Onset Date: 11/20/20 Plan of Care Certification Date: 08/11/22 Next Certification Due Date: 10/20/22 Patient Identified by Name and Date of : Yes REHABILITATION AND SPORTS THERAPY PHYSICAL THERAPY EVALUATION PLAN OF CARE: Assessment: Kevin Griffith presents with diagnosis of Parkinson's Disease that interferes with walking;standing;stair negotiation;Comments;heavy exertion;physical activities;lifting;driving;carryi ng Uses stair lift in home. Must do non reiprocal with rail. He presents with impairments in balance, gait, independence in exercise, overall function, and strength . PROMIS? (Patient-Reported Outcomes Measurement Information System) scores were reviewed and physical function domain identified as a rehabilitation concern. Prognosis for therapy is Good due to: current objective clinical presentation;Prognosis may be limited due to chronic nature of impairments . Issued HEP to start addressing ankle and hip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 encounter [facility] 03-29-2022 Note HNO ID: [id number] Author: Maine Medel, PT, DPT Service: ? Author Type: Physical Therapist Type: Progress Notes Filed: 03/29/2022 4:57 PM Note Text: Episode Visit Count: 1 Therapist That Will Oversee The Plan Of Care: manie Medel Start of Care Date: 03/29/22 Onset Date: 11/20/20 Plan of Care Certification Date: 03/29/22 Next Certification Due Date: 05/28/22 Patient Identified by Name and Date of : Yes REHABILITATION AND SPORTS THERAPY PHYSICAL THERAPY EVALUATION PLAN OF CARE: Assessment: Kevin Griffith presents with diagnosis of PD that interferes with walking in the house;stair negotiation;physical activities;driving;Comments;bed mobility (writting, getting in to bed (high bed)) . He presents with impairments in balance, gait, independence in exercise, overall function, strength and functional performance testing indicates increased risk for falls, difficulty doing duel tasks, and minimal strength deficits. PROMIS? (Patient-Reported Outcomes Measurement Information System) scores were reviewed and physical function domain identified as within normal limits. Prognosis for therapy is Good due to: acuteness of condition;good support system/ coping skills . He will benefit from skilled therapy services to meet the goals established for this plan of care as noted below. Goals for Episode of Care: created on 03/29/22 through 05/28/22 Demonstrate ability to assume and maintain tandem stance for 20 seconds. SLS >10 seconds B Become involved with [facility] in home exercise program. Patient will demonstrate increase in B hip strength strength to 5/5 during manual muscle testing in order to improve function for balance Increase strength in ankle to 5/5 for balance. Be able to turn in a [place] in 8 steps. Decrease tug to <10 seconds without AD for improved richard and step length Patient Goals: to learn about PD, to reduce falls Planned Interventions, Frequency, and Duration: Current Frequency: 1x/week Duration: 4 weeks (starting in one month) Total Number of Visits Planned: 4 Planned Treatment Interventions: Therapeutic exercise (84798);Neuromuscular re-education (37899);Manual therapy (39943);Therapeutic activities (51422);Self-nursing home management (28146);Gait Training (69300);Functional training;General Conditioning;Body Mechanics Training PLAN FOR NEXT VISIT: turning assessment, progress balance, and cadnce/step length Patient demonstrates good understanding of plan of care and treatment. The above goals and plan of care were discussed and agreed upon by patient/family. SUBJECTIVE: Kevin Griffith is a 76 year old male seen today for Was officially diagnosed in November. and report that they noticed more changing in personality and falls and tremors in both hands. Has had multiple 5 falls since november. Pt reports that he notices slower speed with ambulation. Referred to PD clinic through Dr Sumner. Patient Goals: to learn about PD, to reduce falls Functional Limitations: walking in the house;stair negotiation;physical activities;driving;Comments;bed mobility (writting, getting in to bed (high bed)) Prior Level of Function: Independent without limitations Relevant History Past Relevant Medical Conditions: (back surgeries) Intake Information: Prescription present Previous Treatment: None Falls Interview: Two or more falls in the last year;Uses an assistive device Falls Intervention: Patient referred for more thorough falls assessment. Pain: Pain Pain Level: 5 Pain Location: (back) Description: Aching Frequency: Intermittent Post Treatment Pain Post Treatment Pain Level: No Change PROMIS Scales Higher is Better 08/30/2021 03/11/2022 GH Physical - Score 42.3 (Good) 34.9 (Poor) GH Physical - Percentile 22 % 7 % GH Mental - Score 48.3 (Very Good) 36.3 (Fair) GH Mental - Percentile 43 % 9 % T-scores: mean of general population = 50. 5 points is clinically meaningfully difference Percentiles provide an indication of how the patient's score ranks in relation to the general population. Higher percentile rankings indicate better function/quality of life. 50th percentile is the average of the general population and indicates half of respondents had a worse score. T-scores: mean of general population = 50. 5 points is clinically meaningfully difference Percentiles provide an indication of how the patient's score ranks in relation to the general population. Higher percentile rankings indicate better function/quality of life. 50th percentile is the average of the general population and indicates half of respondents had a worse score. OBJECTIVE MEASURES WITH LEVEL OF FUNCTION: Cognition Cognition: Memory Deficits Memory Deficits: Short Term Vision Vision Deficits: Wears corrective lenses;Comments (more difficulty with distance) Corrective lenses: prisms for double vision Visi (more content not included)... [facility] 03-29-2022 Note HNO ID: [id number] Author: Joann Romano OTR/L Service: ? 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 He presents with strength within 25-50% for age range, low end of normal for fine and gross motor coordination, and reports independence with ADLs and IADLs at this time. Patient and spouse verbalize understanding recommendations, and no further skilled OT needs identified at this time. Encouraged patient and spouse to return as needed in future if further needs arise. Goals for Episode of Care created on 03/29/22 through 03/29/22 Patient and spouse will verbalize recommendations *MET Patient Goals: maintain independence Planned Interventions, Frequency, and Duration: Current Frequency: Discontinue Therapy Services Patient demonstrates good understanding of plan of care and treatment. The above goals and plan of care were discussed and agreed upon by patient/family. SUBJECTIVE: Kevin Griffith is a 76 year old male seen today for OT evaluation for Parkinsons Multidisciplinary clinic. Functional Limitations: (handwriting,) Prior Level of Function: Independent without limitations Patient Goals: maintain independence Intake Information: Prescription present Previous Treatment: None Falls Interview: Two or more falls in the last year;Uses an assistive device Relevant History Past Relevant Medical Conditions: Diabetes;Parkinson's Disease (diplopia, degenerative spine disease) Right or Left Handed: Right Employment: Retired Recreation / Current Exercise: none Home Environment Patient Lives With: Spouse Assistance Available: 24 Hour Home Type: Ranch Tub/Shower Type: walk in shower with built shower bench, grab bars Pain: Pain Pain Level: 6 (chronic back pain) Pain Location: Back Frequency: Continuous Post Treatment Pain Post Treatment Pain Level: No Change PROMIS Scales Higher is Better 08/30/2021 03/11/2022 GH Physical - Score 42.3 (Good) 34.9 (Poor) GH Physical - Percentile 22 % 7 % GH Mental - Score 48.3 (Very Good) 36.3 (Fair) GH Mental - Percentile 43 % 9 % T-scores: mean of general population = 50. 5 points is clinically meaningfully difference Percentiles provide an indication of how the patient's score ranks in relation to the general population. Higher percentile rankings indicate better function/quality of life. 50th percentile is the average of the general population and indicates half of respondents had a worse score. T-scores: mean of general population = 50. 5 points is clinically meaningfully difference Percentiles provide an indication of how the patient's score ranks in relation to the general population. Higher percentile rankings indicate better function/quality of life. 50th percentile is the average of the general population and indicates half of respondents had a worse score. OBJECTIVE MEASURES WITH LEVEL OF FUNCTION: Hand Strength R Manager Fire Position 2 (lbs): 71 lbs L Manager Fire Position 2 (lbs): 60 lbs R Lateral Pinch (lbs): 25 lbs UE AROM R UE AROM: WFL L UE AROM: WFL Current Activities Of Daily Living Feeding: Modified Independent Grooming: Modified Independent Bathing Upper Body: Modified Independent Bathing Lower Body: Modified Independent Dressing Upper Body: Modified Independent Dressing Lower Body: Modified Independent Toileting: Modified Independent Instrumental Activities of Daily Living Cooking: (able to grill food) Driving: (per spouse, still driving, somedays problematic) Functional Performance Test Results 9 Hole Peg Test Right (seconds): 28.3 9 Hole Peg Test Left (seconds): 29.8 Box and Blocks Right Box and Blocks (blocks per min): 43 blocks per min Left Box and Blocks (blocks per min): 43 blocks per min Education: Education Learning Preferences: Demonstration;Explanation;Perform ance;Printed Materials Barriers: None Learning/educational needs: Home exercise program;Plan of Care Education Provided: Yes, see treatment interventions for education provided Education Provided To: Patient;Caregiver Education Mode/Type: Demonstration;Explanation/Discuss ion;Performance Response to Education/Teach Back: States/Identifies;Return Demonstration TREATMENT: OT Treatment Interventions : Self-Alf Management Evaluation Self-Alf Management: 1: Pt and spouse educated in role of OT 2: Discussed importance of hydrating with medication and avoiding proteins with meds (more content not included)... [facility] 03-29-2022 Note HNO ID: [id number] Author: Sakina Zafar CCC-SHORTHAND REPORTER Service: ? Author Type: Speech Language Pathologist Type: Progress Notes Filed: 03/29/2022 3:59 PM Note Text: Episode Visit Count: 1 Therapist That Will Oversee The Plan Of Care: Andrade Start of Care Date: 03/29/22 Onset Date: 11/20/20 Plan of Care Certification Date: 03/29/22 Patient Identified by Name and Date of : Yes [facility]HABIL[facility] SPORTS THERAPY SPEECH and SWALLOW EVALUATION PLAN OF CARE: Impression: Communication deficits identified: Dysarthria of speech Swallow Deficits Identified / Suspected: Oropharyngeal dysphagia RECOMMENDATION: Diet Recommendations: Regular Consistency;Thin Liquids IDDSI Level 0 Swallowing Precautions Recommendations: Self-monitoring; Sit upright 90 degrees for all PO; Use extra moistening agents; Alternate bites and sips; Double swallows; Extended time between presentations; Feed / Eat at a slow rate; Maintain an upright position 20-30 minutes following all oral intake SHORTHAND REPORTER Recommendations: Swallowing Precautions;Discontinue Speech Therapy Results and Recommendations Discussed With: Patient;Physician Prognosis: Good Good: current objective clinical presentation;within-session changes at evaluation;good support system/ coping skills Goals for Episode of Care: created on 03/29/2022 through 03/29/22 DYSARTHRIA GOALS Improve maximum phonation time in order to sustain ah for 17 seconds with occasional cues. All goals to target the patient's overall ability to facilitate functional communication of ADL medical / social needs. DYSPHAGIA GOALS Verbalize and implement swallowing strategies to maximize patient safety and reduce risk for aspiration. Planned Interventions, Frequency, and Duration: Current Frequency: 1 visit Duration: 1 visit PLAN FOR NEXT VISIT: not applicable-evaluation/treatment/d ischarge completed Patient demonstrates good understanding of plan of care and treatment. The above goals and plan of care were discussed and agreed upon by patient/family. SUBJECTIVE: Kevin Griffith is a 76 year old male seen today for a diagnostic. Voice and Swallowing Evaluation. Patient Goals: 'To improve swallowing' OBJECTIVE MEASURES WITH LEVEL OF FUNCTION: Hearing Deficits: Other: See Comment (has hearing aides, does not wear-able to understand and hear ST during evaluation well) Vision Deficits: Wears glasses Portions of the following standardized testing were utilized in the evaluation of the patient: Clinician directed non-standardized probes along with portions of standardized assessments were utilized to assess patient. . Current Status Oral Hygiene: Clear, dry oral cavity Dentition: Retains Natural Dentition Current Feeding Method: Oral Current Diet Textures: Regular Consistency;Thin Liquids IDDSI Level 0 Current Level Of Communication: Verbal (pt and pt's report decrease in pt's volume and difficulty with being understood on phone) Current Management Of Secretions: Able to self-manage Oral Motor Exam: Within Functional Limits Except Labial ROM Impaired: Bilateral Jaw Range of Motion: Within functional limits Speech/Voice/Language Speech Production: Within Functional Limits Except Dysarthria: Decreased Prosody;Decreased Breath Support;Imprecise Articulation (however, pt intelligible to unfamiliar listener during evaluation) Voice Assessment: Yes Sustained ?ah? phonation (seconds) : 8 (increased to 17 seconds with use of deep diaphragmatic breathing as instructed/demonstrated by ST) Maximum Phonation Time (seconds): 18 (counting for 18 seconds) SWALLOWING Swallow Position Of Patient During Assessment: Upright In Chair Consistencies Presented: Thin Liquids IDDSI Level 0;Pureed IDDSI Level 4;Soft and Bite-Sized IDDSI Level 6;Solid Response to Consistencies Presented: -Patient readily consumes p.o. trials for assessment; delayed clearance of pudding consistency, which cleared via double swallow as prompted by ST; mastication extended, but functional Compensatory Strategies Utilized During Assessment: Double swallows;Feed / Eat at a slow rate;Small Bite/Sip;Self-monitoring;Alternat e bites and sips Previous Swallow Study: MBS (pt reports had MBS done at [place] last year, which pt was told 'he did fine' and no recommendations for follow up ST or diet modifications made) Clinical Swallow [place] Swallow Protocol: Fail Fail: Coughing episodes (x1 throat clear delayed post trial of water) Oral Pharyngeal Swallow Assessment: Within Functional Limits Except Preparatory / Oral Phase: Within Functional Limits Except Mastication: (pt with close attention to mastication-requires extended time) A-P Transit: Suspect impairment Oral Residue: Mildly Impaired Pharyngeal Phase: Within Functional Limits Except Reflexive Throat Clear and Cough after Swallowing: Yes;Post-Swallow (delayed brief throat clear/cough after water (more content not included)... [facility] 03-29-2022 History of Present illness Narrative Episode Visit Count: 1 Therapist That Will Oversee The Plan Of Care: maine Medel Start of Care Date: 03/29/22 Onset Date: 11/20/20 Plan of Care Certification Date: 03/29/22 Next Certification Due Date: 05/28/22 Patient Identified by Name and Date of : Yes REHABILITATION AND SPORTS THERAPY PHYSICAL THERAPY EVALUATION PLAN OF CARE: Assessment: Kevin Griffith presents with diagnosis of PD that interferes with walking in the house;stair negotiation;physical activities;driving;Comments;bed mobility (writting, getting in to bed (high bed)) . He presents with impairments in balance, gait, independence in exercise, overall function, strength and functional performance testing indicates increased risk for falls, difficulty doing duel tasks, and minimal strength deficits. PROMIS (Patient-Reported Outcomes Measurement Information System) scores were reviewed and physical function domain identified as within normal limits. Prognosis for therapy is Good due to: acuteness of condition;good support system/ coping skills . He will benefit from skilled therapy services to meet the goals established for this plan of care as noted below. Goals for Episode of Care: created on 03/29/22 through 05/28/22 Demonstrate ability to assume and maintain tandem stance for 20 seconds. SLS >10 seconds B Become involved with [facility] in home exercise program. Patient will demonstrate increase in B hip strength strength to 5/5 during manual muscle testing in order to improve function for balance Increase strength in ankle to 5/5 for balance. Be able to turn in a [place] in 8 steps. Decrease tug to <10 seconds without AD for improved richard and step length Patient Goals: to learn about PD, to reduce falls Planned Interventions, Frequency, and Duration: Current Frequency: 1x/week Duration: 4 weeks (starting in one month) Total Number of Visits Planned: 4 Planned Treatment Interventions: Therapeutic exercise (53532);Neuromuscular re-education (26205);Manual therapy (33792);Therapeutic activities (52107);Self-nursing home management (59701);Gait Training (48091);Functional training;General Conditioning;Body Mechanics Training PLAN FOR NEXT VISIT: turning assessment, progress balance, and cadnce/step length Patient demonstrates good understanding of plan of care and treatment. The above goals and plan of care were discussed and agreed upon by patient/family. SUBJECTIVE: Kevin Griffith is a 76 year old male seen today for Was officially diagnosed in November. and report that they noticed more changing in personality and falls and tremors in both hands. Has had multiple 5 falls since november. Pt reports that he notices slower speed with ambulation. Referred to PD clinic through Dr Sumner. Patient Goals: to learn about PD, to reduce falls Functional Limitations: walking in the house;stair negotiation;physical activities;driving;Comments;bed mobility (writting, getting in to bed (high bed)) Prior Level of Function: Independent without limitations Relevant History Past Relevant Medical Conditions: (back surgeries) Intake Information: Prescription present Previous Treatment: None Falls Interview: Two or more falls in the last year;Uses an assistive device Falls Intervention: Patient referred for more thorough falls assessment. Pain: Pain Pain Level: 5 Pain Location: (back) Description: Aching Frequency: Intermittent Post Treatment Pain Post Treatment Pain Level: No Change PROMIS Scales Higher is Better 08/30/2021 03/11/2022 GH Physical - Score 42.3 (Good) 34.9 (Poor) GH Physical - Percentile 22 % 7 % GH Mental - Score 48.3 (Very Good) 36.3 (Fair) GH Mental - Percentile 43 % 9 % T-scores: mean of general population = 50. 5 points is clinically meaningfully difference Percentiles provide an indication of how the patient's score ranks in relation to the general population. Higher percentile rankings indicate better function/quality of life. 50th percentile is the average of the general population and indicates half of respondents had a worse score. T-scores: mean of general population = 50. 5 points is clinically meaningfully difference Percentiles provide an indication of how the patient's score ranks in relation to the general population. Higher percentile rankings indicate better function/quality of life. 50th percentile is the average of the general population and indicates half of respondents had a worse score. OBJECTIVE MEASURES WITH LEVEL OF FUNCTION: Cognition Cognition: Memory Deficits Memory Deficits: Short Term Vision Vision Deficits: Wears corrective lenses;Comments (more difficulty with distance) Corrective lenses: prisms for double vision Vision Comments: distance issues Sensory Corrective lenses: prisms for double vision LE Flexibility Flexibility: Hamstring Flexibility;Ankle Dorsiflexion R Hamstring Flexibility: 30 L Hamstring Flexibility: 25 R Ankle Dorsiflexion Flexibility: 23 L Ankle Dorsiflexion Flexibility: 20 LE Strength R Hip ABduction: 4/5 R Ankle Inversion: 4/5 R Ankle Eversion: 4/5 L Hip ABduction: 4/5 L Ankle Inversion: 4/5 L Ankle Eversion: 4/5 Movement Description Movement Impairment(s): Tremor Tremor Comments: minimal in B LE Mobility Rolling: Independent Supine To Sit: Independent Sit to Supine: Independent Sit To Stand: Independent Stand To Sit: Independent Gait Gait: Supervision Gait Device: None Gait Observation: decreased step length, decreased richard, decreased arm swing, increased trunk flexion Functional Performance Test Results 30 Second Chair Stand Test: 9 reps (wihtout hands) 5 Times Sit to Stand Test : 16 sec Timed Up and Go (sec): 12 sec Timed Up and Go - Condition 2 (sec) : 13 Timed Up and Go Manual (sec): 13.8 sec 4 Stage Balance Test Narrow base of support (sec): 10 sec Semi-tandem base of support (sec): 10 sec Tandem base of support (sec): 23 sec (with left in front of right, unable to perform with right in front of left) Single leg stance - right (sec): 9 sec Single leg stance - left (sec): 5 sec Education: Education Learning Preferences: Demonstration;Explanation;Perform ance;Printed Materials Barriers: None Learning/educational needs: Safety;Home exercise program;Plan of Care;Posture Education Provided: Yes, see treatment interventions for education provided Education Provided To: Patient;Caregiver Education Mode/Type: Demonstration;Explanation/Discuss ion;Literature/Printed Materials;Performance Response to Education/Teach Back: States/Identifies;Return Demonstration TREATMENT: PT Treatment Interventions: Therapeutic Exercise Evaluation Evaluation Therapeutic Exercise: 1: SLR x 5 2: SL hip abduction x 5 3: modified hip flexor stretch with chair 4: education about decreasing one step in the driveway block for increased step length 5: education about getting to silver sneakers and bike research Skilled Intervention: Patient was educated in proper exercise technique and purpose for exercises. Skilled judgment was provided in selection of appropriate interventions. Provided written instruction for home exercise program to facilitate proper performance and compliance. Correct performance of therapeutic exercises was facilitated with verbal cuing. Billing * Evaluation Low Complexity: 1 Unit Therapeutic Exercise Treatment Minutes: 23 Total Treatment Time Minutes (timed/untimed): 50 Maine Medel PT, DPT documented in this encounter [facility] 03-29-2022 History of Present illness Narrative Episode Visit Count: 1 Therapist That Will Oversee The Plan Of Care: Andrade Start of Care Date: 03/29/22 Onset Date: 11/20/20 Plan of Care Certification Date: 03/29/22 Patient Identified by Name and Date of : Yes [facility] SPEECH and SWALLOW EVALUATION PLAN OF CARE: Impression: Communication deficits identified: Dysarthria of speech Swallow Deficits Identified / Suspected: Oropharyngeal dysphagia RECOMMENDATION: Diet Recommendations: Regular Consistency;Thin Liquids IDDSI Level 0 Swallowing Precautions Recommendations: Self-monitoring; Sit upright 90 degrees for all PO; Use extra moistening agents; Alternate bites and sips; Double swallows; Extended time between presentations; Feed / Eat at a slow rate; Maintain an upright position 20-30 minutes following all oral intake SHORTHAND REPORTER Recommendations: Swallowing Precautions;Discontinue Speech Therapy Results and Recommendations Discussed With: Patient;Physician Prognosis: Good Good: current objective clinical presentation;within-session changes at evaluation;good support system/ coping skills Goals for Episode of Care: created on 03/29/2022 through 03/29/22 DYSARTHRIA GOALS Improve maximum phonation time in order to sustain ah for 17 seconds with occasional cues. All goals to target the patient's overall ability to facilitate functional communication of ADL medical / social needs. DYSPHAGIA GOALS Verbalize and implement swallowing strategies to maximize patient safety and reduce risk for aspiration. Planned Interventions, Frequency, and Duration: Current Frequency: 1 visit Duration: 1 visit PLAN FOR NEXT VISIT: not applicable-evaluation/treatment/d ischarge completed Patient demonstrates good understanding of plan of care and treatment. The above goals and plan of care were discussed and agreed upon by patient/family. SUBJECTIVE: Kevin Griffith is a 76 year old male seen today for a diagnostic. Voice and Swallowing Evaluation. Patient Goals: 'To improve swallowing' OBJECTIVE MEASURES WITH LEVEL OF FUNCTION: Hearing Deficits: Other: See Comment (has hearing aides, does not wear-able to understand and hear ST during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 reciprocal arm swing with resting R hand tremor noted Level of assist: independent Device: no device Gait speed: 10 Meter Walk - 10/28/21 1130 10 Meter Walk Comfortable Pace Trial 1 8.4 seconds Comfortable Pace Trial 2 7.55 seconds Comfortable Pace Trial Average 7.98 Comfortable Pace Velocity (m/s) 0.75 Assistive Device Used none Stair navigation: no handrail needed, reciprocal pattern and recommended use of HR but able to perform w/o UE support on 4 steps Objective Balance Test Completed: FGA-see toolkit for score Functional Gait Assessment (FGA) - 10/28/21 1138 Functional Gait Assessment Gait Level Surface 1 Change in gait speed 2 Gait with horizontal head turns 2 Gait with vertical head turns 2 Gait and pivot turn 2 Step over obstacle 3 Gait with narrow base of support 0 2 steps Gait with eyes closed 2 Ambulating backwards 1 > 9 sec, R path deviation Steps 3 4 steps FGA Score 18 Treatments: Physical Therapy Exercise Log - 10/28/21 1416 OTHER Precautions/Contraindications DM type II, HIFU evaluation - tremor PT Treatment Times Total Treatment Time 43 Treatment Plan: Evaluation only this date. PT Re-assessment indicated on future date if patient undergoes HIFU procedure. Physical Therapy Neuro Goals: To be established by discharge: Mobility re-assessment to be completed on a future date if patient undergoes HIFU procedure. Patient Education provided: Discussed Plan of care frequency and duration, treatment plan, importance of attendance for recovery, team concept, and diagnosis/pathophysiology/prognos is. Pt is in agreement with plan, and all questions at this time were answered. CPT Code 17524 Low 25638 Moderate 05246 High History 0 1-2 3+ Comorbidities: chronic pain, DM, hx of neurological disease and prior surgical history, Personal factors: chronicity or severity of the current condition x Examination of body systems (elements of body structures & functions, activity limitations, and/or participation restrictions) 1-2 elements 3+ elements 4+ elements See below clinical impression x Clinical Presentation Stable Evolving Unstable As evidenced by reports of fluctuating symptoms over time x Clinical Impression: . Kevin Griffith presents to [facility] outpatient neurological rehab services for PT assessment prior to potential HIFU surgical intervention. Patient reports that his goals for HIFU surgical intervention are: to improve ability to carry dishes, address handwriting, and improve ability to eat. Upon assessment, patient presents with the following: decreased gait speed; good tolerance in supine position with knee flexion; reduced bilateral SLS stability; and an increased energy expenditure with sit to stand and supine to sitting transfers. Based on objective balance testing, patient is at an increased risk for falls. I recommend that patient continues with further PT intervention to address gross mobility-related deficits and fall risk prevention; however, he does not live locally. Thus, the patient elected to continue with therapy at a local facility - will request updated referral from referring physician. Re-assessment indicated on future date if patient undergoes HIFU procedure.The documented impairments result in the following functional limitations: ADLs/IADLs, functional mobility, walking, recreational activities and quality of life. Potential barriers to rehab include: multiple co-morbidities. The patient would benefit from skilled PT services focused on the above listed impairments and limitations in order to safely progress patient to desired level of function. Plan of care to be revised as needed based on response to therapeutic intervention. Thank you for allowing me to participate in this patient's care. Please contact me with any questions at the above number. Sarah Mckenzie, PT STATE LICENSE, PT.[id number] documented in this encounter [facility] 10-05-2021 Instructions Barb Amador MD - 10/05/2021 11:[address] Head Physical therapy DATSCAN-the yes/no Parkinson's disease test Jim Batreskarson is the navigator Dr. Barb Amador MD Neurology Office Information Jaspreet Qureshi MA Office# documented in this encounter [facility] 10-05-2021 History of Present illness Narrative Subjective Patient ID: Kevin Griffith is a 76 y.o. male. He lives 2 hours away Contacted hospital for HIFU via website He developed tremor about a year ago Mother an 2 sisters have the tremor Needs cups with lid Shaving and signing name is hard He is retired and spends a lot of time on the computer Finds that the wrist bad Right handed Diabetic, A1C 7.3 He took primidone but has dizzy an drunk feeling Currently on gabapentin for neuropathy Drinks 3 10z cups of coffee a day Rare caffeine in afternoon [employer] On a Cpap machine Normal sense of smell and taste Reports that 2 doctors have cleared him for PD Tremors most when sitting still and not using her hands The following portions of the patient's history were reviewed and updated as appropriate: allergies, current medications, past family history, past medical history, past social history, past surgical history and problem list. Review of Systems Constitutional: Positive for fatigue. HENT: Positive for hearing loss. Respiratory: Positive for shortness of breath. Endocrine: Positive for polyuria. Musculoskeletal: Positive for back pain and gait problem. Neurological: Positive for dizziness and tremors. Psychiatric/Behavioral: Positive for dysphoric mood. The patient is nervous/anxious. All other systems reviewed and are negative. History reviewed. No pertinent family history. Social History Tobacco Use Smoking status: Former Smoker Smokeless tobacco: Never Used Vaping Use Vaping Use: Former Substance and Sexual Activity Alcohol use: Never Drug use: Never Objective Physical Exam Constitutional: Appearance: Normal appearance. HENT: Head: Normocephalic and atraumatic. Eyes: Extraocular Movements: Extraocular movements intact. Pupils: Pupils are equal, round, and reactive to light. Cardiovascular: Pulses: Normal pulses. Pulmonary: Effort: Pulmonary effort is normal. Abdominal: General: Abdomen is flat. Musculoskeletal: General: Normal range of motion. Skin: General: Skin is warm and dry. Neurological: Mental Status: He is alert. Motor: Tremor present. Comments: Tremor rating spirals( will be scanned) Right hand Drawing A: 2 Drawing B:2 Drawing C: 1 Left hand Drawing A: 1 Drawing B: 1 Drawing C: 1 Resting tremor but independently PACU Vitals 10/05/21 1100 BP: 91/63 Pulse: 99 Assessment/Plan: 76yo M with tremor.He will be evaluated for PD with DATSCAN. He worked up for high-frequency ultrasound with a CT head and physical therapy assessment. Patient will get results of the DaTscan over the phone and at that point we will discuss starting medication and whether he wants to follow-up here or in [place] as it is significantly closer to home. He believes that he would still want HIFU. If the test is negative he would like to continue to have the high-frequency ultrasound and will need to follow-up in clinic once. Diagnoses and all orders for this visit: Tremor - NM Brain Datscan SPECT CT Single Area Single Day; Future - CT Head Or Brain Without Contrast; Future - Ambulatory Ref to [facility] (PT/OT/ST); Future Patient Instructions Tremor CT Head Physical therapy DATSCAN-the yes/no Parkinson's disease test Jim Bradford is the navigator Dr. Brab Amador MD Neurology Office Information Jaspreet Qureshi MA Office# Dr. Barb Amador MD Neurology Office Information Jaspreet Qureshi MA Office# Barb Amador MD documented in this encounter [facility] 05-19-2021 History of Present illness Narrative Discharge information given to the patient. Patient and family verbalized understanding of information. All questions were answered before discharge. Patient ambulated, denies dizziness or nausea. Tolerating PO fluids and crackers. Vital signs are stable. Patient has changed and is being discharged home in a wheelchair with valuables. IV discontinued and dressing in place. Patient arrived to recovery monitor applied. Dr. Frazier at bedside order for EKG entered for hypotensive event. Patient responds to voice, nasal airway in place with simple mask at 10 LPM oxygen. quality control engineering technician called. Patient brought to OR for implantation of spinal stimulator today. Patient with history of cardiac arrest during last lumbar surgery with general anesthesia. During induction patient's blood pressure dropped to 60s systolic and 40s diastolic. In light of patient's history, the decision was made to cancel the case. Patient's informed. Mame Machado PA-C documented in this encounter [employer] Phone: 05-05-2021 Hospital Discharge instructions Kori Casillas RN - 05/05/2021 Shower with the Hibiclens product given to you in Pre-Admission Testing. Follow the instructions and wear clean clothes to bed and clean linen on the bed the night before surgery. Follow the instructions and shower the morning of surgery and wear clean, comfortable clothes to the hospital. Please bring your [employer] Surgical Information folder on the day of surgery. Please miko the last dose taken (date and time ) on your Daily Medications List provided in your After Visit Summary. Please bring a photo ID and insurance information BRING YOUR CPAP MACHINE DAY OF SURGERY. No smoking, no alcohol 24 hours prior to surgery. Your blood glucose must be less than 250 on the morning of surgery. If higher your surgery may be rescheduled. DO NOT TAKE ANY NOVOLOG INSULIN THE DAY OF SURGERY. TAKE 112 UNITS OF TOUJEO INSULIN MORNING OF SURGERY. TAKE the following medications the morning of your surgery: PERCOCET IF NEEDED, ALBUTEROL IF NEEDED, PAXIL,TRELEGY INHALER, PROTONIX, FLOMAX. You may take your prescription pain medications. You may take Tylenol (Acetaminophen) if needed for pain. No Motrin, Ibuprofen, or Advil 24 hours prior to surgery, or longer if instructed by your surgeon. No Aleve or Naprosyn 3 days prior to surgery, or longer if instructed by your surgeon. Do not take aspirin or aspirin containing products for 5 days before surgery, or longer if instructed by your surgeon. LAST DOSE OF ASPIRIN ON 05/13. You will receive a reminder call the day before surgery with your Same Day Surgery arrival time. Follow all instructions given to you by Dr. ALTMAN If you have specific questions, please call your surgeon. You may use the communications programmer parking located at the main entrance on [address] [facility] and take the H elevator to the first floor for same day surgery. Take a left after exiting the elevator and check in at the desk. The following attachments cannot be sent through Care Everywhere.Laminotomy and Laminectomy: General Info (Norwegian)documented in this encounter [employer] Work Phone: documented in this encounter [employer] Work Phone: Evaluation note* Diagnosis Abnormal electrocardiogram (ECG) (EKG) Shortness of breath Pre-op testing Preoperative examination, unspecified Abnormal EKG Nonspecific abnormal electrocardiogram (ECG) (EKG) documented in this encounter [facility] Work Phone: Evaluation note* Diagnosis Tremor, essential- Primary Essential and other specified forms of tremor documented in this encounter [facility] note* Diagnosis Tremor- Primary Abnormal involuntary movements documented in this encounter [facility] note* Diagnosis Tremor Abnormal involuntary movements Impaired mobility and activities of daily living Impairment of balance documented in this encounter [facility] note* Diagnosis Parkinson's disease (HCC)- Primary Paralysis agitans documented in this encounter [facility] note* Diagnosis Parkinsonism, unspecified Parkinsonism type (HCC)- Primary Essential tremor Essential and other specified forms of tremor Dysphagia, unspecified type Gait instability Abnormality of gait documented in this encounter [facility] note* Diagnosis Parkinsonism, unspecified Parkinsonism type (HCC)- Primary Dysphagia, oropharyngeal phase Dysarthria documented in this encounter [facility] note* Diagnosis Parkinson disease (HCC)- Primary Paralysis agitans documented in this encounter [facility] note* Diagnosis Gait instability- Primary Abnormality of gait Parkinsonism, unspecified Parkinsonism type (HCC) Dysphasia Other speech disturbance Oropharyngeal dysphagia Dysphagia, oropharyngeal phase Decreased activities of daily living (ADL) documented in this encounter [facility] note* Diagnosis Parkinsonism, unspecified Parkinsonism type (HCC)- Primary Depression, unspecified depression type Anxiety Anxiety state, unspecified Orthostatic lightheadedness Dizziness and giddiness Dysphagia, unspecified type documented in this encounter [facility] note* Diagnosis Parkinsonism, unspecified Parkinsonism type (HCC)- Primary Gait instability Abnormality of gait Leg weakness, bilateral Other musculoskeletal symptoms referable to limbs Imbalance Abnormality of gait documented in this encounter [facility] note* Diagnosis MELISSA (generalized anxiety disorder)- Primary Generalized anxiety disorder Depression, unspecified depression type Parkinsonism, unspecified Parkinsonism type (HCC) documented in this encounter [facility] note* Diagnosis Parkinsonism, unspecified Parkinsonism type (HCC)- Primary Gait instability Abnormality of gait Leg weakness, bilateral Other musculoskeletal symptoms referable to limbs Imbalance Abnormality of gait documented in this encounter [facility] note* Diagnosis Parkinsonism, unspecified Parkinsonism type (HCC)- Primary Orthostatic hypotension Anxiety Anxiety state, unspecified documented in this encounter [facility] Reason for Referral Status Reason Specialty Diagnoses / Procedures Re ferred By Contact Referred To Contact Open Cardiology Diagnoses Pre-op testing Abnormal EKG Shortness of breath Procedures ECHO Pharmacological Stress Test Raeann Holland, [employer] - SERVICE ESTABLISHMENT ATTENDANT [facility] [address] [place] [address] Specialty Diagnoses / Procedures Referred By Contac t Referred To Contact Neurology Diagnoses Tremor, essential JolliffPatricia MD [address] [facility] [address] [place] [address] Barb Amador MD [address] [place] [id number] [place] [id number] Referral ID Status Reason Start Date Expiration Date V isits Requested Visits Authorized [id number] Pending Review 09/27/2021 09/27/2022 1 1 Specialty Diagnoses / Procedures Referred By Contac t Referred To Contact Rehabilitation Diagnoses Tremor aBrb Amador MD [address] [place] [address] [address] [place] [address] Referral ID Status Reason Start Date Expiration Date V isits Requested Visits Authorized [id number] Authorized 10/05/2021 10/05/2022 1 1 Specialty Diagnoses / Procedures Referred By Contac t Referred To Contact Radiology Diagnoses Tremor Procedures CT Head Or Brain Without Contrast Barb Amador MD [address] [place] [address] [place] [id number] Referral ID Status Reason Start Date Expiration Date V isits Requested Visits Authorized [id number] New Request 10/05/2021 10/05/2022 1 1 Specialty Diagnoses / Procedures Referred By Contac t Referred To Contact Radiology Diagnoses Tremor Procedures NM Brain Datscan [place] [address] [place] [address] [place] [address] Nuclear Medicine [address] [place] [address] Referral ID Status Reason Start Date Expiration Date V isits Requested Visits Authorized [id number] Pending Review 10/05/2021 10/05/2022 4 4 Specialty Diagnoses / Procedures Referred By Contac t Referred To Contact Diagnoses Parkinsonism, unspecified Parkinsonism type (HCC) Procedures PROVIDER ORDERED FOLLOW UP OFFICE/OUTPATIENT [facility] 60-74 MINUTES Jaylyn Sumner MD [address] [address] Referral ID Status Reason Start Date Expiration Date Visits Requested Visits Authorized [id number] Authorized PCP Requested Referral 03/17/2022 06/15/2022 1 1 Specialty Diagnoses / Procedures Referred By Contac t Referred To Contact Neurology / NEUROLOGICAL [facility] Diagnoses Parkinsonism, unspecified Parkinsonism type (HCC) Procedures CONSULT TO [facility] OFFICE/OUTPATIENT [facility] 60-74 MINUTES Jaylyn Sumner MD [address] [address] [facility] [address] [place] [address] Referral ID Status Reason Start Date Expiration Date Visits Requested Visits Authorized [id number] Authorized PCP Requested Referral 03/17/2022 03/17/2023 1 1 Specialty Diagnoses / Procedures Referred By Contac t Referred To Contact [facility] Diagnoses Parkinsonism, unspecified Parkinsonism type (HCC) Gait instability Procedures CONSULT TO PHYSICAL THERAPY PHYSICAL THERAPY EVALUATION HIGH COMPLEX 45 MINS Jaylyn Sumner MD [address] [address] [facility] [address] [address] Referral ID Status Reason Start Date Expiration Date Visits Requested Visits Authorized [id number] Authorized PCP Requested Referral Auto-Generate d Referral 03/29/2022 03/29/2023 99 99 Specialty Diagnoses / Procedures Referred By Contac t Referred To Contact [facility] Diagnoses Parkinsonism, unspecified Parkinsonism type (HCC) Gait instability Decreased activities of daily living (ADL) Procedures CONSULT TO ASSISTED LIVING ASSISTANT OCCUPATIONAL THERAPY EVAL HIGH COMPLEX 60 MINS Jaylyn Sumner MD [address] [address] [facility] [address] [address] Referral ID Status Reason Start Date Expiration Date Visits Requested Visits Authorized [id number] Authorized PCP Requested Referral Auto-Generate d Referral 03/29/2022 03/29/2023 99 99 Specialty Diagnoses / Procedures Referred By Contac t Referred To Contact Diagnoses Parkinsonism, unspecified Parkinsonism type (HCC) Oropharyngeal dysphagia Procedures CONSULT TO SPEECH THERAPY Jaylyn Sumner MD [address] [place] [address] Referral ID Status Reason Start Date Expiration Date Visits Requested Visits Authorized [id number] Authorized PCP Requested Referral 03/29/2022 06/27/2022 3 3 Referral ID Status Reason Start Date Expiration Date Visits Requested Visits Authorized [id number] Authorized PCP Requested Referral 08/04/2023 1 1 Specialty Diagnoses / Procedures Referred By Contac t Referred To Contact [facility] Diagnoses Parkinsonism, unspecified Parkinsonism type (HCC) Procedures CONSULT TO PHYSICAL THERAPY PHYSICAL THERAPY EVALUATION HIGH COMPLEX 45 MINS Jaylyn Sumner MD [address] [place] [phone] [facility] [address] [address] Referral ID Status Reason Start Date Expiration Date Visits Requested Visits Authorized [id number] Authorized PCP Requested Referral Auto-Generate d Referral 08/04/2022 08/04/2023 99 99 Specialty Diagnoses / Procedures Referred By Contac t Referred To Contact Diagnoses Parkinsonism, unspecified Parkinsonism type (HCC) Depression, unspecified depression type Procedures CONSULT TO PSYCHIATRY OFFICE/OUTPATIENT NEW HIGH MDM 60-74 MINUTES Jaylyn Sumner MD [address] [place] [phone] Referral ID Status Reason Start Date Expiration Date Visits Requested Visits Authorized [id number] Pending Review PCP Requested Referral 08/04/2022 08/04/2023 1 1 Specialty Diagnoses / Procedures Referred By Contac t Referred To Contact Diagnoses Depression, unspecified depression type Procedures PROVIDER ORDERED FOLLOW UP OFFICE/OUTPATIENT [facility] 60-[place] [address] [place] [address] Referral ID Status Reason Start Date Expiration Date Visits Requested Visits Authorized [id number] Authorized PCP Requested Referral 11/28/2022 09/02/2023 1 1 Specialty Diagnoses / Procedures Referred By Contac t Referred To Contact [facility] Diagnoses Parkinsonism, unspecified Parkinsonism type (HCC) Procedures CONSULT TO ASSISTED LIVING ASSISTANT OCCUPATIONAL THERAPY EVAL HIGH COMPLEX 60 MINS Leni Escudero, [employer].SERVICE ESTABLISHMENT ATTENDANT [address] [place] [address] [facility] [address] [address] Referral ID Status Reason Start Date Expiration Date Visits Requested Visits Authorized [id number] Authorized PCP Requested Referral Auto-Generate d Referral 12/12/2022 12/12/2023 99 99 Specialty Diagnoses / Procedures Referred By Contac t Referred To Contact [facility] Diagnoses Parkinsonism, unspecified Parkinsonism type (HCC) Procedures CONSULT TO PHYSICAL THERAPY PHYSICAL THERAPY EVALUATION HIGH COMPLEX 45 MINS Leni Escudero, [employer].SERVICE ESTABLISHMENT ATTENDANT [address] [place] [address] [facility] [address] [address] Referral ID Status Reason Start Date Expiration Date Visits Requested Visits Authorized [id number] Authorized PCP Requested Referral Auto-Generate d Referral 12/12/2022 12/12/2023 99 99 Advance Directives No Advanced Directives Records FoundDocuments on File Type Date Recorded 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 ACP-Advance Directive ACP-[employer] Latest Code Status on File Code Status Date Activated Date Inactivated Comments Full Code 04/17/2018 6:13 AM 04/17/2018 1:26 PM Documents on File Type Date Recorded 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 ACP-Advance Directive ACP-[employer] Latest Code Status on File Code Status Date Activated Date Inactivated Comments Full Code 05/19/2021 6:48 AM Full Code 04/17/2018 6:13 AM 04/17/2018 1:26 PM Documents on File Type Date Recorded 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 Advance Directives and Living Will Documents on File Type Date Recorded 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 Advance Directives and Living Will Documents on File Type Date Recorded 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 Advance Directives and Livin g Will 11/01/2021 10:44 AM Summary Purpose Family History No Family History Records FoundNo Family History Records FoundNo Family History Records FoundNo Family History Records FoundNo Family History Records Found Additional Source Comments Source Comments (unrecognize d section and content) In the event this informatio n is protected by the Federal Confidentiality of Alcohol and Drug Abuse Patient Records regulations: The Federal rules restrict any use of the information to criminally investigate or prosecute any alcohol or drug abuse patient.[facility] the event this information is protected by the Federal Confidentiality of Alcohol and Drug Abuse Patient Records regulations: The Federal rules restrict any use of the information to criminally investigate or prosecute any alcohol or drug abuse patient.[facility] the event this information is protected by the Federal Confidentiality of Alcohol and Drug Abuse Patient Records regulations: The Federal rules restrict any use of the information to criminally investigate or prosecute any alcohol or drug abuse patient.[facility] the event this information is protected by the Federal Confidentiality of Alcohol and Drug Abuse Patient Records regulations: The Federal rules restrict any use of the information to criminally investigate or prosecute any alcohol or drug abuse patient.[facility] the event this information is protected by the Federal Confidentiality of Alcohol and Drug Abuse Patient Records regulations: The Federal rules restrict any use of the information to criminally investigate or prosecute any alcohol or drug abuse patient.[facility] the event this information is protected by the Federal Confidentiality of Alcohol and Drug Abuse Patient Records regulations: The Federal rules restrict any use of the information to criminally investigate or prosecute any alcohol or drug abuse patient.[facility] the event this information is protected by the Federal Confidentiality of Alcohol and Drug Abuse Patient Records regulations: The Federal rules restrict any use of the information to criminally investigate or prosecute any alcohol or drug abuse patient.[facility] the event this information is protected by the Federal Confidentiality of Alcohol and Drug Abuse Patient Records regulations: The Federal rules restrict any use of the information to criminally investigate or prosecute any alcohol or drug abuse patient.[facility] the event this information is protected by the Federal Confidentiality of Alcohol and Drug Abuse Patient Records regulations: The Federal rules restrict any use of the information to criminally investigate or prosecute any alcohol or drug abuse patient.[facility] the event this information is protected by the Federal Confidentiality of Alcohol and Drug Abuse Patient Records regulations: The Federal rules restrict any use of the information to criminally investigate or prosecute any alcohol or drug abuse patient.[facility] the event this information is protected by the Federal Confidentiality of Alcohol and Drug Abuse Patient Records regulations: The Federal rules restrict any use of the information to criminally investigate or prosecute any alcohol or drug abuse patient.[facility] the event this information is protected by the Federal Confidentiality of Alcohol and Drug Abuse Patient Records regulations: The Federal rules restrict any use of the information to criminally investigate or prosecute any alcohol or drug abuse patient.[facility] the event this information is protected by the Federal Confidentiality of Alcohol and Drug Abuse Patient Records regulations: The Federal rules restrict any use of the information to criminally investigate or prosecute any alcohol or drug abuse patient.[facility] the event this information is protected by the Federal Confidentiality of Alcohol and Drug Abuse Patient Records regulations: The Federal rules restrict any use of the information to criminally investigate or prosecute any alcohol or drug abuse patient.[facility] the event this information is protected by the Federal Confidentiality of Alcohol and Drug Abuse Patient Records regulations: The Federal rules restrict any use of the information to criminally investigate or prosecute any alcohol or drug abuse patient.[facility] the event this information is protected by the Federal Confidentiality of Alcohol and Drug Abuse Patient Records regulations: The Federal rules restrict any use of the information to criminally investigate or prosecute any alcohol or drug abuse patient.[facility] the event this information is protected by the Federal Confidentiality of Alcohol and Drug Abuse Patient Records regulations: The Federal rules restrict any use of the information to criminally investigate or prosecute any alcohol or drug abuse patient.[facility] the event this information is protected by the Federal Confidentiality of Alcohol and Drug Abuse Patient Records regulations: The Federal rules restrict any use of the information to criminally investigate or prosecute any alcohol or drug abuse patient.[facility] the event this information is protected by the Federal Confidentiality of Alcohol and Drug Abuse Patient Records regulations: The Federal rules restrict any use of the information to criminally investigate or prosecute any alcohol or drug abuse patient.[facility] the event this information is protected by the Federal Confidentiality of Alcohol and Drug Abuse Patient Records regulations: The Federal rules restrict any use of the information to criminally investigate or prosecute any alcohol or drug abuse patient.[facility] Reason for Visit (unrecogniz ed section and content) Specialty Diagnoses / Procedures Referred By Michel t Referred To Contact Diagnoses Parkinsonism, unspecified Parkinsonism type (HCC) Procedures PROVIDER ORDERED FOLLOW UP OFFICE/OUTPATIENT [facility] 60-74 MINUTES Jaylyn Sumner MD [address] [address] Referral ID Status Reason Start Date Expiration Date V isits Requested Visits Authorized [id number] Closed PCP Requested Referral 11/03/2022 08/04/2023 1 1 Status Reason Specialty Diagnoses / Procedures Re ferred By Contact Referred To Contact [facility] Diagnoses Pre-op testing Abnormal EKG Shortness of breath Procedures ECHO Pharmacological Stress Test Raeann Holland, [employer] - SERVICE ESTABLISHMENT ATTENDANT 1 [facility] [address] [place] [address] Reason Comments Consult Ref by: PATRICIA MCGOWAN 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,essential ([facility]IFU interest - saw us on the website), Tremors Dx; ET approx 1 year Specialty Diagnoses / Procedures Referred By Contac t Referred To Contact Neurology Diagnoses Tremor, essential Juan M Patricia Ramon MD [address] [facility] [address] [place] [address] Barb Amador MD [address] [facility] [address] [place] [address] Referral ID Status Reason Start Date Expiration Date Visits Re quested Visits Authorized [id number] Closed 09/27/2021 09/27/2022 1 1 Reason Comments Physical Therapy Neuro Specialty Diagnoses / Procedures Referred By Contac t Referred To Contact Rehabilitation Diagnoses Tremor Barb Amador MD [facility] [address] [place] [address] [facility] [address] [place] [address] Referral ID Status Reason Start Date Expiration Date V isits Requested Visits Authorized [id number] Authorized 10/05/2021 10/05/2022 1 199 Reason Onset Date Comments Medication Refill 11/05/2021 Reason Onset Date Comments Medication Refill 11/09/2021 Reason Comments Follow Up Parkinson's Reason Comments Upcoming Appointment Pre-rooming phone c all Reason Comments Speech Evaluation Specialty Diagnoses / Procedures Referred By Contac t Referred To Contact Speech-Language Pathologist / SPEECH THERAPY Diagnoses PD Clinic Procedures [facility] Jaylyn Sumner MD [address] [address] Amaya Deleon, [facility] [address] [place] [address] Referral ID Status Reason Start Date Expiration Date V isits Requested Visits Authorized [id number] Authorized 03/29/2022 06/27/2022 99 99 Reason Comments PT Eval Patient Education Specialty Diagnoses / Procedures Referred By Contac t Referred To Contact Physical Therapy / PHYSICAL THERAPY Diagnoses PD Clinic Procedures [facility] Jaylyn Sumner MD [address] [address] Maine Medel, PT, DPT [address] [place] [address] Referral ID Status Reason Start Date Expiration Date V isits Requested Visits Authorized [id number] Authorized 03/29/2022 06/27/2022 99 99 Specialty Diagnoses / Procedures Referred By Contac t Referred To Contact Neurology / NEUROLOGICAL [facility] Diagnoses Parkinsonism, unspecified Parkinsonism type (HCC) Procedures CONSULT TO [facility] OFFICE/OUTPATIENT [facility] MDM 60-74 MINUTES Jaylyn Sumner MD [address] [address] [facility] [address] [place] [address] Referral ID Status Reason Start Date Expiration Date V isits Requested Visits Authorized [id number] Closed PCP Requested Referral 03/17/2022 03/17/2023 1 1 Reason Onset Date Comments Refill Request 05/18/2022 Reason Comments Appointment Earlier appointment request d/t worsening symptoms Reason Comments Follow Up Referral ID Status Reason Start Date Expiration Date V isits Requested Visits Authorized [id number] Closed PCP Requested Referral 03/17/2022 06/15/2022 1 1 Reason Comments Physical Therapy Specialty Diagnoses / Procedures Referred By Contac t Referred To Contact [facility] Diagnoses Parkinsonism, unspecified Parkinsonism type (HCC) Procedures CONSULT TO PHYSICAL THERAPY PHYSICAL THERAPY EVALUATION [facility] COMPLEX 45 MINS Jaylyn Sumner MD [address] [address] [facility] [address] [address] Referral ID Status Reason Start Date Expiration Date Visits Requested Visits Authorized [id number] Authorized PCP Requested Referral Auto-Generate d Referral 08/04/2022 08/04/2023 99 99 Reason Comments New Patient Specialty Diagnoses / Procedures Referred By Contac t Referred To Contact Diagnoses Parkinsonism, unspecified Parkinsonism type (HCC) Depression, unspecified depression type Procedures CONSULT TO PSYCHIATRY OFFICE/OUTPATIENT [facility] 60-74 MINUTES Jaylyn Sumner MD [address] [address] Referral ID Status Reason Start Date Expiration Date Visits Requested Visits Authorized [id number] Pending Review PCP Requested Referral 08/04/2022 08/04/2023 1 1 Reason Comments Patient Update Increased shaking in AM Reason Comments Other PD Symptoms Worsenin g Reason Comments Patient Update Reason Comments Patient Update Increased falls, agg ression (unrecognized sect ion and content) No Status Records FoundNo Status Records FoundNo Status Records FoundNo Status Records FoundNo Status Records Found INFORMATION SOURCE (unrecogn ized section and content) DATE CREATED AUTHOR AUTHOR'S ORGANIZ ATION 05/20/2021 [facility] DATE CREATED AUTHOR AUTHOR'S ORGANIZ ATION 12/22/2021 [facility] DATE CREATED AUTHOR AUTHOR'S ORGANIZ ATION 02/18/2023 [facility] DATE CREATED AUTHOR AUTHOR'S ORGANIZ ATION 02/19/2023 [facility] Scheduled Active and Recently Administ ered Medications (unrecognized section and content) Continuous Medication Order 05/17/2021 05/18/2021 05/19/2021 lactated ringers infusion Intravenous, at 50 mL/hr, CONTINUOUS, Starting on Mon05/19/21 at 0715, Upon admission to sameday - please start iv if patient does not have iv access. Use 500ml NS for patients on dialysis., Pre-op (day of surgery) 0710 (New Bag - Prov ider: Asya Torre RN) PRN Medication Order 05/17/2021 05/18/2021 05/19/2021 0.9 % sodium chloride bolus 500 mL (4.07 mL/kg), Intravenous, at 250 mL/hr, Administer over 2 Hours, ONCE PRN, Nausea, Starting on Mon05/19/21 at 0724, For 1 dose, PACU only 0.9 % sodium chloride infusion 25 mL, Intravenous, at 100 mL/hr, PRN, If patient receiving piggyback infusions without ordered maintenance IV fluids or with frequent/long duration piggyback infusions, Starting on Mon05/19/21 at 0647, Administer at the same rate as the piggyback being infused., Pre-op (day of surgery) ALPRAZolam (NIRAVAM) dissolvable tablet 0.25 mg 0.25 mg, Oral, PRN, Anxiety, Starting on Mon05/19/21 at 0647, Pre-op (day of surgery) diphenhydrAMINE (BENADRYL) injection 12.5 mg 12.5 mg, Intravenous, ONCE PRN, Itching, Starting on Mon05/19/21 at 0724, For 1 dose, for use Sameday and, PACU only fentaNYL (SUBLIMAZE) injection 25 mcg 25 mcg, Intravenous, EVERY 5 MIN PRN, Pain Moderate (4-6), Starting on Mon05/19/21 at 0724, For 3 doses, Phase I and Phase II- Initial therapy for moderate pain (4-6). Restricted to a 50 minute time frame starting when the patient can verbally state their pain score. If after 2 doses the pain score does not decrease by more than one point, then go to secondary medication. Ifsecondary medications are utilized, do not return to initial therapy medications. SDS and, PACU only fentaNYL (SUBLIMAZE) injection 50 mcg 50 mcg, Intravenous, EVERY 5 MIN PRN, Pain Severe (7-10), Starting on Mon05/19/21 at 0724, For 3 doses, Phase I or Phase II- Initial therapy for severe pain (7-10). Restricted to a 50 minute time frame starting when the patient can verbally state their pain score. If after 2 doses the pain score does not decrease by more than one point, then go to secondary medication. If secondary medications are utilized, do not return to initial therapy medications.Sameday and, PACU only hydrALAZINE (APRESOLINE) injection 5 mg 5 mg, Intravenous, EVERY 10 MIN PRN, High Blood Pressure, Starting on Mon05/19/21 at 0724, PRN for SBP > 160 for 2 consecutive measurements, and if one of the following conditions is met: 1) If IV labetolol is ineffective. 2) If HR is under 60. 3) If patient has heart block, COPD or asthma. If both labetalol and hydralazine ineffective, notify anesthesiologist. for use Sameday and, PACU only HYDROmorphone (DILAUDID) injection 0.25 mg 0.25 mg, Intravenous, EVERY 5 MIN PRN, Pain Moderate (4-6), Starting on Mon05/19/21 at 0724, For 4 doses, Phase I - Secondary therapy to be used after initial therapy medication doses are ineffective (pain score does not decrease by more than 1 point). If secondary medications are utilized, do not return to initial therapy medications., PACU only HYDROmorphone (DILAUDID) injection 0.5 mg 0.5 mg, Intravenous, EVERY 5 MIN PRN, Pain Severe (7-10), Starting on Mon05/19/21 at 0724, For 4 doses, Phase I - Secondary therapy to be used after initial therapy medication doses are ineffective (pain score does not decrease by more than 1 point). If secondary medications are utilized, do not return to initial therapy medications., PACU only insulin lispro (HUMALOG) injection vial 0-28 Units 0-28 Units, Subcutaneous, PRN, Based on Glucose Results, Starting on Mon05/19/21 at 0647, For 3 doses, High Dose Corrective Algorithm Glucose: Dose: If <180 No Insulin 181-240 8 Units 241-300 16 Units 300-350 20 Units 351-400 24 Units Over 400 28 Units, Pre-op (day of surgery) labetalol (NORMODYNE;TRANDATE) injection 5 mg 5 mg, Intravenous, EVERY 10 MIN PRN, High Blood Pressure, Starting on Mon05/19/21 at 0724, PRN for SBP >160 for 2 consecutive measurements, if HR is 60 or greater. If beta aravind is contraindicated (HR less than 60, heart block, COPD or asthma) use hydralazine IV order. for use Sameday and, PACU only lidocaine PF 1 % injection 1 mL 1 mL, Intradermal, ONCE PRN, IV start, Starting on Mon05/19/21 at 0647, For 1 dose, Pre-op (day of surgery) meperidine (DEMEROL) injection 12.5 mg 12.5 mg, Intravenous, EVERY 5 MIN PRN, Shivering, , Starting on Mon05/19/21 at 0724, May give every 5 minutes to max of 50mg. for use Sameday and, PACU only ondansetron (ZOFRAN) injection 4 mg 4 mg, Intravenous, ONCE PRN, Nausea, Starting on Mon05/19/21 at 0724, For 1 dose, Initial antiemetic therapy. For use sameday and, PACU only oxyCODONE (ROXICODONE) immediate release tablet 10 mg(Linked Group 1) 10 mg, Oral, PRN, Pain Severe (7-10), Starting on Mon05/19/21 at 0724, For 1 dose, PHASE II, PACU only oxyCODONE (ROXICODONE) immediate release tablet 5 mg(Linked Group 1) 5 mg, Oral, PRN, Pain Moderate (4-6), Starting on Mon05/19/21 at 0724, For 1 dose, PHASE II, PACU only promethazine (PHENERGAN) injection 6.25 mg 6.25 mg, Intravenous, ONCE PRN, Nausea, Starting on Mon05/19/21 at 0724, For 1 dose, Caution if used IV:Check IV site for infiltrate prior to and during administration. Secondary antiemetic therapy. For use sameday and For IV administration, dilute to 10ml with normal saline. Must be administered over at least 10 minutes., PACU only sodium chloride flush 0.9 % injection 5-40 mL 5-40 mL, Intravenous, PRN, Line Care, Starting on Mon05/19/21 at 0647, For Line Patency: Peripheral IV = 5 mL; Midline or Central Line = 10 mL/lumen. If following IV push medication, administer flush at same rate as the IV push. Flush volume is determined by type of infusion therapy being given. For non-viscous solutions use: Peripheral IV = 5 mL Midline or Central Line = 10 mL/lumen For viscous solutions (i.e. blood components, parenteral nutrition, contrast media, or after obtaining blood sample) use: Peripheral IV = 10 mL Midline or Central Line = 20 mL/lumen, Pre-op (day of surgery) No Frequency Medication Order 05/17/2021 05/18/2021 05/19/2021 bacitracin zinc 500 UNIT/GM ointment Starting on Mon05/19/21 at 0733, For 1 dose, KUN HOLCOMB: cabinet override 0745 (Due) gelatin adsorbable (GELFOAM) 100 sponge Starting on Mon05/19/21 at 0715, For 1 dose, KUN HOLCOMB: cabinet override 0730 (Due) thrombin 5000 units kit Starting on Mon05/19/21 at 0715, For 1 dose, KUN HOLCOMB: cabinet override 0730 (Due) Linked Groups Order Group 1: oxyCODONE (ROXICODONE) immediate release tablet 5 mgJump to med 5 mg, Oral, PRN, Pain Moderate (4-6), Starting on Mon05/19/21 at 0724, For 1 dose
PHASE II
PACU only Or oxyCODONE (ROXICODONE) immediate release tablet 10 mgJump to med 10 mg, Oral, PRN, Pain Severe (7-10), Starting on Mon05/19/21 at 0724, For 1 dose
PHASE II
PACU only Care Teams (unrecognized sec tion and content) Reimbursement Specialist Relationship Specialty Start Date End Date Patricia Mcgowan MD [address] [facility] [address], [place] [id number] PCP - General Family Medicine 10/28/21 Reimbursement Specialist Relationship Specialty Start Date End Date Patricia Mcgowan MD [address] [facility] [address], [place] [address] PCP - General Family Medicine 10/28/21 Reimbursement Specialist Relationship Specialty Start Date End Date Patricia Mcgowan MD [address] [facility] [address], [place] [address] PCP - General Family Medicine 10/28/21 Reimbursement Specialist Relationship Specialty Start Date End Date Patricia Mcgowan MD [address] [facility] [address], [place] [id number] PCP - General Family Medicine 10/28/21 Reimbursement Specialist Relationship Specialty Start Date End Date Patricia Mcgowan MD [address] [facility] [address] [place] [address] PCP - General Family Medicine 10/28/21 Reimbursement Specialist Relationship Specialty Start Date End Date Patricia Mcgowan MD [address] [place] [address] PCP - General Family Medicine 10/28/21 Reimbursement Specialist Relationship Specialty Start Date End Date Ja Cooley [address] [place] [address] PCP - General Family Practice 03/17/22 Reimbursement Specialist Relationship Specialty Start Date End Date Ja Cooley [address] [place] [address] PCP - General Family Practice 03/17/22 Reimbursement Specialist Relationship Specialty Start Date End Date Ja Cooley [address] [place] [address] PCP - General Family Practice 03/17/22 Reimbursement Specialist Relationship Specialty Start Date End Date Ja Cooley [address] [place] [address] PCP - General Family Practice 03/17/22 Reimbursement Specialist Relationship Specialty Start Date End Date Ja Cooley [address] [place] [address] PCP - General Family Practice 03/17/22 Reimbursement Specialist Relationship Specialty Start Date End Date Ja Cooley [address] [place] [address] PCP - General Family Practice 03/17/22 Reimbursement Specialist Relationship Specialty Start Date End Date Ja Cooley [address] [place] [address] PCP - General Family Practice 03/17/22 Reimbursement Specialist Relationship Specialty Start Date End Date Ja Cooley [address] [place] [address] PCP - General Family Practice 03/17/22 Reimbursement Specialist Relationship Specialty Start Date End Date Rejipriti Ja Ravindererma [address] [facility] [address] [place] [address] PCP - General Family Practice 03/17/22 Reimbursement Specialist Relationship Specialty Start Date End Date Ja Cooley [address] [facility] [address] [place] [address] PCP - General Family Medicine 03/17/22 Reimbursement Specialist Relationship Specialty Start Date End Date Ja Cooley [address] [facility] [address] [place] [address] PCP - General Family Medicine 03/17/22 Reimbursement Specialist Relationship Specialty Start Date End Date Ja Cooley [address] [facility] [address] [place] [address] PCP - General Family Medicine 03/17/22 Erika May, [employer].SERVICE ESTABLISHMENT ATTENDANT [address] [place] [address] Specialty Bindery Technician Neurology 09/07/22 Reimbursement Specialist Relationship Specialty Start Date End Date Ja Cooley [address] [facility] [address] [place] [address] PCP - General Family Medicine 03/17/22 Erika May, [employer].SERVICE ESTABLISHMENT ATTENDANT [address] [place] [address] Specialty Bindery Technician Neurology 09/07/22 Reimbursement Specialist Relationship Specialty Start Date End Date Ja Cooley [address] [facility] [address] [place] [address] PCP - General Family Medicine 03/17/22 Erika May, [employer].SERVICE ESTABLISHMENT ATTENDANT [address] [facility] [place] [address] Specialty Bindery Technician Neurology 09/07/22 Reimbursement Specialist Relationship Specialty Start Date End Date Ja Cooley [address] [facility] [address] [place] [address] PCP - General Family Medicine 03/17/22 Erika May, [employer].SERVICE ESTABLISHMENT ATTENDANT [address] [place] [address] Specialty Bindery Technician Neurology 09/07/22 Tatiana Rodas [employer].SERVICE ESTABLISHMENT ATTENDANT [address] [place] [address] Specialty Bindery Technician Neurology 12/05/22 Reimbursement Specialist Relationship Specialty Start Date End Date Ja Cooley [address] [facility] [address] [place] [address] PCP - General Family Medicine 03/17/22 Erika May, [employer].SERVICE ESTABLISHMENT ATTENDANT [address] [place] [address] Specialty Bindery Technician Neurology 09/07/22 Tatiana Rodas [employer].SERVICE ESTABLISHMENT ATTENDANT [address] [place] [facility] [place] [address] Specialty Bindery Technician Neurology 12/05/22 Reimbursement Specialist Relationship Specialty Start Date End Date Ja Cooley [address] [facility] [address] [place] [address] PCP - General Family Medicine 03/17/22 Erika May, [employer].SERVICE ESTABLISHMENT ATTENDANT [address] [facility] [place] [address] Specialty Bindery Technician Neurology 09/07/22 Tatiana Rodas [employer].SERVICE ESTABLISHMENT ATTENDANT [address] [place] [address] Specialty Bindery Technician Neurology 12/05/22 Reimbursement Specialist Relationship Specialty Start Date End Date LenoraJa [address] [facility] [address] [place] [address] PCP - General Family Medicine 03/17/22 Erika May, [employer].SERVICE ESTABLISHMENT ATTENDANT [address] [place] [address] Specialty Bindery Technician Neurology 09/07/22 Tatiana Rodas APRN.SERVICE ESTABLISHMENT ATTENDANT [address] [place] [facility] [place] [address] Specialty Bindery Technician Neurology 12/05/22 Reimbursement Specialist Relationship Specialty Start Date End Date Ja Cooley [address] [facility] [address] [place] [address] PCP - General Family Medicine 03/17/22 Erika May, [employer].SERVICE ESTABLISHMENT ATTENDANT [address] [place] [address] Specialty Bindery Technician Neurology 09/07/22 Tatiana Rodas APRN.SERVICE ESTABLISHMENT ATTENDANT [address] [place] [address] Specialty Bindery Technician Neurology 12/05/22 FOR RECORDS PERTAINING TO PATIENTS WHO ARE OR HAVE BEEN ENROLLED IN A CHEMICAL DEPENDENCY/SUBSTANCEABUSE PROGRAM, SOME INFORMATION MAY BE OMITTED. This clinical summary was aggregated from multiple sources. Caution should be exercised in using it in the provision of clinical care. This summary normalizes information from multiple sources, and as a consequence, information in this document may materially change the coding, format and clinical context of patient data. In addition, data may be omitted in some cases. CLINICAL DECISIONS SHOULD BE BASED ON THE PRIMARY CLINICAL RECORDS. [facility] [employer] [facility]. provides no warranty or guarantee of the accuracy or completeness of information in this document.
== END | disposition home or self-care (01) ==
PROVIDERS: PCP Family Medicine; Referring Provider Family Medicine; Visit Provider Family Medicine
DX: J18.9 Pneumonia, unspecified organism (principal)
CPT/HCPCS: 71046

== ENCOUNTER → 2023-11-23 | Outpatient (CLI) | payer MEDICARE, OTHER, SELFPAY ==
[2023-11-28 14:09] LABS: Albumin 3.6 g/dL (2.9-4.4); Alpha-1-Globulins 0.4 g/dL (0.0-0.4); Gamma Globulin 0.7 g/dL (0.4-1.8); Immunofixation Urine Comment: (.); Immunoglobulin A 167 mg/dL (61-437); Immunoglobulin G 849 mg/dL (603-1613); Immunoglobulin M 91 mg/dL (15-143); PROEL- TOTAL PROTEIN 6.7 g/dL (6.0-8.5)
== END | disposition home or self-care (01) ==
LOC: MFPLAB 15:03
PROVIDERS: PCP Family Medicine; Visit Provider Psychiatry & Neurology Neurology
DX: G62.9 Polyneuropathy, unspecified (principal)
CPT/HCPCS: 36415; 82784; 84165; 86334; 86335

== ENCOUNTER → 2023-12-15 | Outpatient (CLI) | payer MEDICARE, OTHER, SELFPAY ==
--- NOTE | 2023-12-15 14:40 | RAD_ITS ---
STUDY: X-RAY CHEST REASON FOR EXAM: Male, 78 years old. pneumonia TECHNIQUE: PA and lateral views of the chest. COMPARISON: 11/22/2023. FINDINGS: The lungs are clear and expanded. There is no demonstrated pleural abnormality. Normal size heart. Normal mediastinum and javier. Normal visualized pulmonary arteries. Normal visualized aortic arch and descending thoracic aorta. There are diffuse degenerative changes of the visualized thoracic spine. Normal visualized ribs, clavicles, and shoulders. There is no demonstrated abnormality of the visualized soft tissue structures of the upper abdomen. RAD/Chest PA and Lateral IMPRESSION: No acute cardiopulmonary disease. Electronically Signed: Pearl Munoz MD at 1:37 EST ,
--- OUTSIDE RECORDS SUMMARY | 2023-12-15 14:55 | XMS RPT_ITS | CCD ---
Author Name Unknown Address [address] [place] [address] Organization [facility] Care Team Providers Care Medical Coding Technician Name Role Phone FelipeEmigdio galvan Gurwinder (Historic) Primary Care Prov ider Patricia Mcgowan Primary Care Provider Unavailable Primary Care Provider Daniel Mcgowan MD, Patricia Ramon Primary Care Provider [phone]( [phone] BARB AMADOR Attending Unavailab le JOLLIFF, PATRICIA [...] Unavailable SELENEBARB Referring Unavailab le JOLLIFF, PATRICIA [facility] Primary Care Unavailable SELENE, BARB MAS Attending Unavailab le SELENEBARB Referring Unavailab PATRICIA Jimenez Primary Care Unavailable JASPREET QURESHI Attending Unavailable Lenora Ja [place] Primary Care Provider Lenora [facility] Primary Care Provider Lenora [facility] Primary Care Provider Lenora [facility] Primary Care Provider Lalo WASTE DUSTER.PHARMACEUTICAL OPERATOR, Erika K Unavailable [phone] Lenora [facility] Primary Care Provider Lalo WASTE DUSTER.PHARMACEUTICAL OPERATOR, Erika K Unavailable WASTE DUSTER.PHARMACEUTICAL OPERATOR, Tatiana Unavailable PATRICIA MCGOWANER Primary Care Unavailable LIZBETH, JAYLYN Attending Unavailable LENI ESCUDERO Attending Unavailable LIZBETH, JAYLYN Referring Unavailable [facility] Primary Care Unavailabl e LIZBETH, JAYLYN Referring Unavailable ALEIDA RAMIREZ Attending Unavailable [facility] Primary Care Unavailabl e LIZBETH, JAYLYN Attending Unavailable [facility] Primary Care Unavailabl e LIZBETH, JAYLYN Attending Unavailable LIZBETH, JAYLYN Referring Unavailable [facility] Primary Care Unavailabl e [facility] Primary Care Unavailabl e MAINE MEDEL Attending Unavailable LIZBEHT, JAYLYN Referring Unavailable [facility] Primary Care Unavailabl e KORI ACEVEDO Attending Unavailable LIZBETH, JAYLYN Referring Unavailable [facility] Primary Care Unavailabl e KORI ACEVEDO Attending Unavailable LIZBETH, JAYLYN Referring Unavailable LIZBETH, JAYLYN Referring Unavailable [facility] Primary Care Unavailabl e BEBBKORI Attending Unavailable BEBBKORI Attending Unavailable LIZBETH, JAYLYN Referring Unavailable [facility] Primary Care Unavailabl e [facility] Primary Care Unavailabl e LIZBETH, JAYLYN Referring Unavailable [facility] Primary Care Unavailabl e LIZBETH, JAYLYN Referring Unavailable Allergies Allergy Classification Reported Allergen(s) Allergy Type Date of Onset Reaction(s) Facility DOPamine Antagonists (3 sources) Metoclopramide Drug Allergy 03-01-20 18 Anxiety [facility] Unclassified (3 sources) Seasonal allergy Propensity to adverse reactions to substance 05-05-20 21 [facility] (12 sources) Metoclopramide; Translations: [METOCLOPRAMIDE HCL] Drug Allergy 10-05-20 [facility] (20 sources) Metoclopramide; Translations: [METOCLOPRAMIDE] Drug Allergy 08-25-20 Mental Status Change [facility] Work Phone: Medications Current Medications Medication Drug Class(es) Dates Sig (Normalized) Sig (Original) [id number] 200 actuat albuterol 0.09 mg/actuat metered dose [...] 13:47-0500 Body height 177.8 cm Leni Escudero APRN.PHARMACEUTICAL OPERATOR Work Phone: [facility] 12-12-2022 13:47-0500 Body weight 118.3 kg Lein Escudero APRN.PHARMACEUTICAL OPERATOR Work Phone: [facility] 12-12-2022 13:47-0500 SaO2% (BldA) [Mass fraction] 96 % Leni Escudero APRN.PHARMACEUTICAL OPERATOR Work Phone: [facility] 08-04-2022 13:56-0400 Diastolic blood pressure 86 mm[Hg] Jaylyn Sumner MD Work Phone: [facility] 08-04-2022 13:56-0400 Heart rate 107 /min Jaylyn Sumner MD Work Phone: [facility] 08-04-2022 13:56-0400 Respiratory rate 16 /min Jaylyn Sumner MD Work Phone: [facility] 08-04-2022 13:56-0400 SaO2% (BldA) [Mass fraction] 95 % Jaylyn Sumner MD Work Phone: [facility] 08-04-2022 13:56-0400 Systolic blood pressure 109 mm[Hg] Jaylyn Sumner MD Work Phone: [facility] 03-29-2022 12:09-0400 SaO2% (BldA) [Mass fraction] 98 % Jaylyn Sumner MD Work Phone: [facility] 03-17-2022 15:50-0400 Diastolic blood pressure 77 mm[Hg] Jaylyn Sumner MD Work Phone: [facility] 03-17-2022 15:50-0400 Systolic blood pressure 120 mm[Hg] Jaylyn Sumner MD Work Phone: [facility] 03-17-2022 14:51-0400 Body height 177.8 cm Jaylyn Sumner MD Work Phone: [facility] 03-17-2022 14:51-0400 Body weight 125.76 kg Jaylyn Sumner MD Work Phone: [facility] 03-17-2022 14:51-0400 Heart rate 101 /min Jaylyn Sumner MD Work Phone: [facility] 03-17-2022 14:51-0400 SaO2% (BldA) [Mass fraction] 98 % Jaylyn Sumner MD Work Phone: [facility] 10-05-2021 11:00-0500 Diastolic blood pressure 63 mm[Hg] Barb Amador MD Work Phone: [facility] Encounters Encounter Date Encounter Type Care [...] 05-11-2021 ECHOCARDIOGRAM PHARMACOLOGICAL STRESS TEST Raeann Holland WASTE DUSTER - PHARMACEUTICAL OPERATOR Work Phone: Start: 05-05-2021 Antibody screen Nii Charlton MD Work Phone: Start: 05-05-2021 Blood count complete automated Raeann Holland WASTE DUSTER - PHARMACEUTICAL OPERATOR Work Phone: Start: 05-05-2021 Blood typing serologic abo Raeann Holland WASTE DUSTER - PHARMACEUTICAL OPERATOR Work Phone: Start: 05-05-2021 Ecg routine ecg w/le ast 12 lds w/i&r Raeann Holland WASTE DUSTER - PHARMACEUTICAL OPERATOR Work Phone: Start: 08-14-2006 CONVERTED SURGICAL PATHOLOGY Wyatt Thompson Work Phone: Start: 02-03-2006 CONVERTED SURGICAL PATHOLOGY Wyatt Thompson Work Phone: Plan of Treatment Date Care Activity Detail Author Start: 01-25-2031 Tetanus vaccination Tetanus: Every 10yrs [facility] Start: 03-11-2023 Adult depression screening assessment DEPRESSION SCREENING [facility] Start: 11-20-2022 ADVANCE DIRECTIVE DISCUSSION ADVANCE DIRECTIVE DISCUSSION [facility] Start: 11-20-2022 DEPRESSION ASSESSMENT DEPRESSION ASSESSMENT [facility] Start: 07-21-2022 Influenza vaccination INFLUENZA (#1) [facility] Start: 05-05-2022 Creatinine measurement Creatinine monitoring [facility] Work Phone: Start: 05-05-2022 Potassium monitoring Potassium monitoring [facility] Work Phone: Start: 12-21-2021 End: 12-21-2021 Telemedicine consultation with patient 12/21/2021 Telemedicine Neurology Barb Amador MD [address] [facility] [address] [place] [address] [facility], Neuroscience Start: 12-15-2021 End: 12-15-2021 Patient encounter procedure 12/15/2021 Appointment Radiology Barb Amador [facility] [address] [facility] [address] [place] [address] [facility] Nuclear Medicine Start: 11-20-2021 ADVANCE DIRECTIVE DISCUSSION ADVANCE DIRECTIVE DISCUSSION [facility] Start: 11-20-2021 DEPRESSION ASSESSMENT DEPRESSION ASSESSMENT [facility] Start: 11-01-2021 End: 11-01-2021 Patient encounter procedure 11/01/2021 Appointment Radiology Barb Amador MD [address] [facility] [address] [place] [address] [facility] [address] Start: 06-03-2021 End: 06-03-2021 Patient encounter procedure 06/03/2021 Office [place] [address] [place] [id number] [facility] Start: 05-19-2021 End: 05-19-2021 Patient encounter procedure 05/19/2021 Appointment General Surgery Nii Altman MD [address] [place] [address] [facility] General Surgery Start: 05-05-2021 End: 07-04-2021 ECHO Pharmacological Stress Test ECHO Pharmacological Stress Test Echocardiography Routine Pre-op testing Abnormal EKG Shortness of breath Expected: 05/05/2021 (Approximate), Expires: 07/04/2021 [facility] Work Phone: Payers Date Payer Category Payer Unknown ME FOR Eric LEMUS [id number] 2021-Present [phone] [address] [place] [address] [id number] 2021 Unknown [id number] 2021 Unknown [id number] 2019 [employer] of [employer] ( and others) [id number] 2009 Medicare [id number]. [id number] 2009 Medicare [id number] 2009 Medicare [id number] [id number]. [id number] 2002 Self-pay [id number]. [id number] 1944 Unknown [id number] [id number]. 900 1944 Unknown [id number] [id number]. 900 1944 Unknown [id number] [id number]. 900 1944 Unknown [id number] [id number]. 900 1944 Unknown [id number] 2.16.840.1.150466.3.579.2. 900 1944 Unknown [id number] 2.16.840.1.261010.3.579.2. 900 1944 Unknown [id number] 2.16.840.1.267884.3.579.2. 900 1944 Unknown [id number] [id number]. 900 1944 Unknown [id number]. 900 Social History Date Type Detail Facility Tobacco smoking stat [facility] Unknown if ever smoked [facility] Start: 1945 Sex Assigned At Not on file [facility] Start: 05-05-2021 End: 08-04-2022 Tobacco smoking status [facility] Former smoker [employer] Work Phone: Start: 11-20-1948 End: 11-20-1998 History of tobacco use Current smoker [facility] Start: [birth year]-20-1948 End: 11-20-1998 History of tobacco use Cigarette Smoker [facility] Start: 05-05-2021 End: 05-19-2021 Cigarettes smoked current (pack per day) - Reported [facility] Work Phone: Start: 05-05-2021 End: 08-04-2022 Tobacco use and exposure Never used [facility] Start: 05-05-2021 End: 05-19-2021 Alcohol intake Current non-drinker of alcohol (finding) [facility] Work Phone: Start: 11-15-2021 End: 09-02-2022 Exposure to SARS-CoV-2 (event) Not sure [facility] Tobacco smoking stat [facility] Tobacco smoking consumption unknown [facility] Start: 10-05-2021 End: 12-12-2022 Alcohol intake Lifetime non-drinker (finding) [facility] Start: 08-25-2021 History SDOH Alcohol Frequency 1 [facility] Start: 1945 Sex Assigned At Male C [facility] Start: 07-25-2022 End: 08-04-2022 Exposure to SARS-CoV-2 (event) Yes [facility] Medical Equipment Procedure Code Equipment Code Equipment Origin al Text Equipment Identifier Dates [id number] Start: 01-15-2018 SURE COMFORT PEN NEEDLES 31G X 8 MM MISC [id number] Start: 12-28-2017 blood sugar diagnostic (FreeStyle Lite Strips) strips [id number] Start: 01-15-2018 pen needle, diab etic 31 gauge x 5/16 Ndle [id number] Start: 12-28-2017 Clinical Notes 05-05-2021 to 02-15-2023 Telephone Encounter - Mary Harrison RN - 02/14/2023 3:08 PM EDTTelephone Encounter - Mary Harrison RN - 02/14/2023 3:04 PM EDTTelephone Encounter - Raeann Vizcarra - 02/14/2023 2:22 PM EDTAttachments Note Date & Type Note Facility 02-15-2023 Note HNO ID: [id number] Author: Kori Acevedo, PT, DPT Service: ? Author Type: Physical Therapist Type: Progress Notes Filed: 02/15/2023 7:45 AM Note Text: 02/15/2023 [facility] PHYSICAL THERAPY [...] of foot. Kori Acevedo, PT, DPT [facility] 02-14-2023 Miscellaneous Notes MC message sent to patient and for further assessment. Awaiting reply. YVONNE Naik, RN February 14, 2023 3:08 PM Received voicemail from patients' on Mon02/14/2023 2:28 PM Transcript below: This is Chiquita Griffith. My phone number is [phone]. I'm calling for my Kevin Griffith. His [...] really bad or it's gonna be a snf and I don't wanna do that so [...] is very concerned. Please call her at [phone]. Raeann Vizcarra documented in this encounter [facility] 01-13-2023 Miscellaneous Notes Received voicemail 01-13-23 at 12:31 PM. My name is Chiquita Griffith. My phone number is [phone]. This is in regard to Kevin Griffith. [...] not helpful. Voicemail received January 10, 2023 [id number] My name is Chiquita Griffith. My phone number is [phone]. My 's name is Kevin Griffith. He [...] provider for review. documented in this encounter [facility] 12-12-2022 Note HNO ID: [id number] Author: Leni Escudero APRN.PHARMACEUTICAL OPERATOR Service: ? Author Type: Nurse Practitioner Type: Progress Notes Filed: 12/13/2022 10:48 PM Note Text: [facility] - FOLLOW UP EVALUATION Ja Cooley MD [address] [facility] [address] Dear Ja Cooley MD: I had the [...] Row OT/PT/Speech Visit from 10/04/2022 in [facility] Outpatient [facility] Therapy OT/PT/Speech Visit from 08/25/2022 in [facility] [...] times daily. insulin (more content not included)... [facility] 12-12-2022 Instructions Leni Escudero APRN.GUADALUPE - [...] have them on file here at the [facility]. Interested in clinical research? Not currently Movement Disorders Medication Schedule: Medications 6am 12pm 5pm Bedtime Sinemet 25/100 2 2 1 1 Sertaline 50mg 1 Return in about 6 months (around 06/11/2023). If there are any concerns before your next visit, please call or you can send a message through Mobiscope. You can also now schedule and select appointments through [employer]. Leni Escudero APRN.GUADALUPE documented in this encounter [facility] 12-12-2022 History of Present illness Narrative [facility] - FOLLOW UP EVALUATION MD Bessie Gavin [address] [facility] [address] Dear Ja Cooley MD: I had the [...] Row OT/PT/Speech Visit from 10/04/2022 in [facility] OT/PT/Speech Visit from 08/25/2022 in [facility] [...] D3 50 MCG, 2,000 UNIT, GUMMIES) fluticasone vgrcqpo-kpnuowcurzhv-swxnihsswu (TRELEGY ELLIPTA) 200-62.5-25 mcg powder inhaler Inhale [...] 37.42 kg/m . Movement Disorders Scales Performed: [place] Cognitive Assessment (MoCA) Visuospatial/Executive 5 Naming 2 [...] parkinsonian. Then he underwent surgical evaluation at [facility] and DaTscan done there was indicative [...] have them on file here at the [facility]. Interested in clinical research? Not currently Updated Movement Disorders Medication Schedule: Medications 6am 12pm 5pm Bedtime Sinemet 25/100 2 2 1 1 Sertaline 50mg 1 Level of service : 40942 (40-54 min). Time spent 51 ( 1:54pm-2:45pm) min on the day of service, which included preparing to see the patient, [id number] patient care, completing clinical documentation, obtaining and/or reviewing separately obtained history, performing a medically appropriate examination, and counseling and educating the patient/family/caregiver. Leni Escudero APRN.GUADALUPE documented in this encounter [facility] 10-10-2022 Miscellaneous Notes Thanks for the FYI. Well done! JHS Received voicemail from patient on 10/10/2022 9:09 AM Transcript below: Morning this is Kevin Griffith and my phone number is [phone]. I calling to find out if there's [...] Voicemail left directing patient to a detailed Mobiscope message. Requested reply via MC or [facility]O. Provided office number. Message shared with covering provider as KA is HUGO. Mary Harrison MSN, RN October 10, 2022 2:44 PM documented in this encounter [facility] 10-04-2022 Note HNO ID: [id number] Author: Kori Acevedo, PT, DPT Service: ? [...] (timed/untimed): 45 Kori Acevedo, PT, DPT [facility] 10-04-2022 History of Present illness Narrative [...] Acevedo PT, DPT documented in this encounter [facility] 09-16-2022 Miscellaneous Notes Addended by: JAYLYN SUMNER on: 09/16/2022 12:50 PM Modules accepted: Orders The following approved medication requests have been transmitted electronically. Requested Prescriptions Signed Prescriptions Disp Refills DULoxetine (CYMBALTA) 30 mg capsule 90 capsule 3 Sig: Take 1 capsule by mouth once daily. Jaylyn Sumner MD Addended by: LENA MAY on: 09/16/2022 11:43 AM Modules accepted: Orders Electronically signed by Lena Gallo [facility] at 09/16/2022 11:43 AM EDT Script pending to go to [facility]. documented in this encounter [facility] 09-16-2022 Miscellaneous Notes Called and left voicemail that an updated RX had been sent for the Cymbalta. Provided office number for [facility] and option to message via Mobiscope. YVONNE Naik, RN September 16, 2022 8:48 [...] like to speak with Stefania. CALLBACK #: [phone] OK TO LEAVE MESSAGE: ok only on this number - do not leave at home number LAST FUV: 08/04/22 with KA Electronically signed by Lena Gallo [facility] at 09/12/2022 2:37 PM EDT documented in this encounter [facility] 09-15-2022 Note HNO ID: [id number] Author: Kori Acevedo, PT, DPT Service: ? [...] Patient to be seen for Therapeutic exercise (28602);Neuromuscular re-education (41379);Manual therapy (11908);Therapeutic activities (95443);Self-intermediate management (53094);Gait Training (43415);Functional training;General Conditioning;Body Mechanics Training;Patient/Family/Caregiver Education PLAN FOR [...] (timed/untimed): 45 (more content not included)... [facility] 09-02-2022 Note HNO ID: [id number] Author: Aleida Ramirez MD Service: ? Author [...] could not see the pt. REFERRAL SOURCE: [facility] Physician - Dr. Sumner CHIEF COMPLAINT: [...] Diagnosis Date Chronic obstructive pulmonary disease (COPD) ([facility]) Diabetes ([facility]) Generalized anxiety disorder H/O seasonal allergies Mixed [...] 1 tablet by mouth twice daily. fluticasone sckouzv-rqasrspejhey-xormroobgv (TRELEGY ELLIPTA) 200-62.5-25 mcg powder inhaler Inhale [...] for malaise, signif (more content not included)... [facility] 09-02-2022 History of Present illness Narrative [...] could not see the pt. REFERRAL SOURCE: [facility] Physician - Dr. Sumner CHIEF COMPLAINT: [...] 1 tablet by mouth twice daily. fluticasone bmmnhkk-rsdgqxplgbjz-uxkhyavdbo (TRELEGY ELLIPTA) 200-62.5-25 mcg powder inhaler Inhale [...] prior psychiatrist Therapist: No prior therapist Current Coal Conveyor Operator: None Last Hospitalization: Denies hospitalization. ECT: None Previous Discontinued Psychiatric Med Trials: None SUBSTANCE USE HISTORY: Nicotine: 40 py, quit 23 years ago Caffeine: Coffee, 3 cups/day Alcohol: Drank when he was younger, Marijuana: No history of use or dependence Cocaine: No history of use or dependence Opiods: No history of use or dependence SPIRITUALITY: [employer] [facility]: Kevin Griffith is the oldest of 6 siblings. The patient was born and raised in [place]. He completed school He described his childhood [...] : see directory documented in this encounter [facility] 08-25-2022 Note HNO ID: [id number] Author: Kori Acevedo, PT, DPT Service: ? [...] 38 Total Treatment Time Minutes (timed/untimed): 38 Koir Acevedo, PT, DPT [facility] 08-25-2022 History of Present illness Narrative [...] Acevedo PT, DPT documented in this encounter [facility] 08-11-2022 Note HNO ID: [id number] Author: Kori Acevedo PT, DPT Service: ? [...] Planned: 4 Planned Treatment Interventions: Therapeutic exercise (20519);Neuromuscular re-education (49317);Manual therapy (40914);Therapeutic activities (46259);Self-intermediate management (02958);Gait Training (12048);Functional training;General Conditioning;Body Mechanics Training;Patient/Family/Caregiver Education PLAN FOR [...] of the (more content not included)... [facility] 08-04-2022 Note HNO ID: [id number] Author: Jaylyn Sumner MD Service: ? Author Type: Physician Type: Progress Notes Filed: 08/04/2022 5:35 PM Note Text: [facility] - FOLLOW UP EVALUATION Ja Cooley MD [address] [facility] [address] [facility] [address] I had the pleasure of seeing Mr. [...] 1 tablet by mouth twice daily. fluticasone psyzayi-yjzwascudexg-rqmolrpilz (TRELEGY ELLIPTA) 200-62.5-25 mcg powder inhaler Inhale [...] 24 hr table (more content not included)... [facility] 08-04-2022 Instructions Jaylyn Sumner MD - [...] also now schedule and select appointments through [employer]. Jaylyn Sumner MD documented in this encounter [facility] 08-04-2022 History of Present illness Narrative [facility] - FOLLOW UP EVALUATION Ja Cooley MD [address] [facility] [address] I had the pleasure of seeing Mr. [...] 1 tablet by mouth twice daily. fluticasone qlrxvvw-ehzgfcmtuuhu-wrnvjztllg (TRELEGY ELLIPTA) 200-62.5-25 mcg powder inhaler Inhale [...] parkinsonian. Then he underwent surgical evaluation at [facility] and DaTscan done there was indicative [...] gait he reports both lightheadedness and imbalance. Dickerson symptomatic today upon standing but orthostatics were [...] or around: 11/03/22 Level of service : 92823 (40-54 min). Time spent 45 min on the day of service, which included preparing to see the patient, sfje-ig-[id number] patient care, completing clinical documentation, performing a [...] Jaylyn Sumner MD documented in this encounter [facility] 07-29-2022 Note HNO ID: [id number] Author: Kori Acevedo PT, DPT Service: ? Author Type: Physical Therapist Type: Progress Notes Filed: 07/29/2022 4:54 PM Note Text: 07/29/2022 [facility] PHYSICAL THERAPY [...] follow-up appointments. Kori Acevedo PT, DPT [facility] 07-21-2022 Miscellaneous Notes Received voicemail from patient's on Rosalia 07/21/2022 10:52 AM Transcript below: Kaila my name is Chiquita Griffith. My 's name is Kevin Griffith. He is a patient of Dr. Gordillo. My phone number is [phone]. I'm calling to speak to somebody regarding [...] Updates shared with MD CAR & SS, WASTEWATER ENGINEER. If any guidance is suggested, RN will contact with feedback. YVONNE Naik, RN July 21, 2022 12:42 PM documented in this encounter [facility] 05-18-2022 Miscellaneous Notes Done Request from patient requesting refill. Please E[facility]Sc[facility] to [facility]. Last OV: 03/29/22 with CAR Future OV: 08/16/22 with CAR Pending Prescriptions Disp Refills CARBIDOPA 25 MG-LEVODOPA 100 MG TABLET 540 tablet 3 Sig: Take 2 tablets by mouth three times daily. REJI: No Blossom S documented in this encounter [facility] 03-29-2022 Note HNO ID: [id number] Author: Maine Medel, PT, DPT Service: ? [...] SLS >10 seconds B Become involved with [facility] in home exercise program. Patient will demonstrate increase in B hip strength strength to 5/5 during manual muscle testing in order to improve function for balance Increase strength in ankle to 5/5 for balance. Be able to turn in a kluti kaah in 8 steps. Decrease tug to <10 seconds without AD for improved richard and step length Patient Goals: to learn about PD, to reduce falls Planned Interventions, Frequency, and Duration: Current Frequency: 1x/week Duration: 4 weeks (starting in one month) Total Number of Visits Planned: 4 Planned Treatment Interventions: Therapeutic exercise (08775);Neuromuscular re-education (77754);Manual therapy (70174);Therapeutic activities (02456);Self-intermediate management (40189);Gait Training (92719);Functional training;General Conditioning;Body Mechanics Training PLAN FOR NEXT [...] vision Visi (more content not included)... [facility] 03-29-2022 Note HNO ID: [id number] Author: Joann Romano OTR/L Service: ? Author Type: Occupational Therapist Type: Progress Notes Filed: 03/29/2022 5:40 PM Note Text: Episode Visit Count: 2 Therapist That Will Oversee The Plan Of Care: Maria Isabel Romano Start of Care Date: 03/29/22 Onset Date: 06/14/21 Plan of Care Certification Date: 03/29/22 Next Certification Due Date: 03/29/22 Patient Identified by Name and Date of : Yes [facility] OCCUPATIONAL THERAPY [...] WITH LEVEL OF FUNCTION: Hand Strength R Attorney At Law Position 2 (lbs): 71 lbs L Attorney At Law Position 2 (lbs): 60 lbs R Lateral [...] States/Identifies;Return Demonstration TREATMENT: OT Treatment Interventions : Self-Snf Management Evaluation Self-Snf Management: 1: Pt and spouse educated in role of OT 2: Discussed importance of hydrating with medication and avoiding proteins with meds (more content not included)... [facility] 03-29-2022 Note HNO ID: [id number] Author: Sakina Zafar CCC-NEEDLE LOOM OPERATOR HELPER Service: ? Author Type: Speech Language Pathologist Type: Progress Notes Filed: 03/29/2022 3:59 PM Note Text: Episode Visit Count: 1 Therapist That Will Oversee The Plan Of Care: Andrade Start of Care Date: 03/29/22 Onset Date: 11/20/20 Plan of Care Certification Date: 03/29/22 Patient Identified by Name and Date of : Yes [facility] SPEECH and [...] position 20-30 minutes following all oral intake NEEDLE LOOM OPERATOR HELPER Recommendations: Swallowing Precautions;Discontinue Speech Therapy Results and [...] MBS (pt reports had MBS done at [place] last year, which pt was told 'he did fine' and no recommendations for follow up ST or diet modifications made) Clinical Swallow Worthing Swallow Protocol: Fail Fail: Coughing episodes (x1 [...] after water (more content not included)... [facility] 03-29-2022 History of Present illness Narrative [...] SLS >10 seconds B Become involved with [facility] in home exercise program. Patient will demonstrate increase in B hip strength strength to 5/5 during manual muscle testing in order to improve function for balance Increase strength in ankle to 5/5 for balance. Be able to turn in a kluti kaah in 8 steps. Decrease tug to <10 seconds without AD for improved richard and step length Patient Goals: to learn about PD, to reduce falls Planned Interventions, Frequency, and Duration: Current Frequency: 1x/week Duration: 4 weeks (starting in one month) Total Number of Visits Planned: 4 Planned Treatment Interventions: Therapeutic exercise (93514);Neuromuscular re-education (81012);Manual therapy (85460);Therapeutic activities (67171);Self-intermediate management (77419);Gait Training (95372);Functional training;General Conditioning;Body Mechanics Training PLAN FOR NEXT [...] Medel PT, DPT documented in this encounter [facility] 03-29-2022 History of Present illness Narrative Episode Visit Count: 1 Therapist That Will Oversee The Plan Of Care: Andrade Start of Care Date: 03/29/22 Onset Date: 11/20/20 Plan of Care Certification Date: 03/29/22 Patient Identified by Name and Date of : Yes [facility] SPEECH and [...] position 20-30 minutes following all oral intake NEEDLE LOOM OPERATOR HELPER Recommendations: Swallowing Precautions;Discontinue Speech Therapy Results and [...] MBS (pt reports had MBS done at [place] last year, which pt was told 'he did fine' and no recommendations for follow up ST or diet modifications made) Clinical Swallow Worthing Swallow Protocol: Fail Fail: Coughing episodes (x1 [...] Eval Sound Production with Language Expression and Mechanical Insulator (47273) Swallow / Dysphagia (58733): Skilled Intervention: Educated and advised patient / caregiver on texture and liquid consistency recommendations., Instructed patient / caregiver on recommended compensatory strategies to maximize safety with oral intake while maintaining nutrition, hydration and medication stability. Speech/Language Therapy (22375): Skilled Intervention: Educated and instructed patient on [...] Eval Sound Production with Language Expression and Mechanical Insulator (95329), Clinical Swallow Evaluation (14108), Speech Treatment (55759) and Dysphagia Treatment (86755) Total time / Length of visit: 60 minutes JOSE Hopper documented in this encounter [facility] 03-29-2022 Note HNO ID: [id number] Author: Jaylyn Sumner MD Service: ? Author Type: Physician Type: Progress Notes Filed: 03/29/2022 7:35 PM Note Text: [facility] - Multidisciplinary Clinic Jaylyn Sumner [address] [facility] [address] Ja Cooley MD [address] [facility] [address] I had the pleasure of seeing Mr. [...] since last visit underwent surgical evaluation at [facility] and DaTscan done there indicative of [...] during this visit (more content not included)... [facility] 03-29-2022 Instructions Jaylyn Sumner MD - [...] or you can send a message through [employer]. You can also now schedule and select appointments through [employer]. Jaylyn Sumner MD documented in this encounter [facility] 03-29-2022 History of Present illness Narrative [facility] - Multidisciplinary Clinic Jaylyn Sumner [address] [facility] [address] [facility] [address] Ja Cooley MD [address] [facility] [address] I had the pleasure of seeing Mr. [...] since last visit underwent surgical evaluation at [facility] and DaTscan done there indicative of [...] in 1 week Level of service : 97115 (40-54 min). Time spent 53 min on the day of service, which included preparing to see the patient, [id number] patient care, completing clinical documentation, counseling and [...] Jaylyn Sumner MD documented in this encounter [facility] 03-23-2022 Miscellaneous Notes I called patient to get him pre-roomed for his upcoming appointment. I had to leave a voicemail for a returned call. If patient calls back please transfer call to myself or a clinical staff member to complete this process. Thanks! Bryanna Haas MA documented in this encounter [facility] 03-17-2022 Note HNO ID: [id number] Author: Jaylyn Sumner MD Service: ? Author Type: Physician Type: Progress Notes Filed: 03/18/2022 4:12 PM Note Text: [facility] - FOLLOW UP EVALUATION No referring provider defined for this encounter. MD Bessie Gavin [address] [facility] [address] I had the pleasure of seeing Mr. [...] to be helpful Interval History Seen at [facility] for surgical evaluation. SDR was too low [...] three times daily. (more content not included)... [facility] 03-17-2022 Instructions Jaylyn Sumner MD - [...] or you can send a message through [employer]. You can also now schedule and select appointments through [employer]. Jaylyn Sumner MD ======== [facility] Pre-Visit Instructions Welcome to the Parkinson s Multi-Disciplinary [facility]! These visits will consist of four separate appointments provided by Neurology, Speech Therapy, Physical Therapy and Occupational Therapy. The appointments will take place at the [facility] and all occur on the [...] appointment. This call will serve as a ajs-slntw-um and be used to review your medications, [...] and staff alike. documented in this encounter [facility] 03-17-2022 History of Present illness Narrative [facility] - FOLLOW UP EVALUATION No referring provider defined for this encounter. Ja Cooley MD [address] [facility] [address] [facility] [address] I had the pleasure of seeing Mr. [...] to be helpful Interval History Seen at [facility] for surgical evaluation. SDR was too low [...] since last visit underwent surgical evaluation at [facility] and DaTscan done there indicative of [...] or around: 07/17/22 Level of service : 31876 (40-54 min). Time spent 54 min on the day of service, which included preparing to see the patient, [id number] patient care, completing clinical documentation, obtaining and/or [...] Jaylyn Sumner MD documented in this encounter [facility] 02-10-2022 History of Present illness Narrative Images from the original note were not included. SDR for Lisset_Stephanie came in at 0.34 with 973 available elements. Other than the low SDR no significant CT deviations noted. documented in this encounter [facility] 12-22-2021 History of Present illness Narrative Video Visit [facility], NEUROSCIENCE [facility] [address] [facility] [address] Via Real-time Synchronous Audiovisual [facility] 12/21/2021 Barb Amador MD Provider Location: [facility] Patient Location Pharmacognosist: None Patient Location: Patient's Home Patient: Kevin [...] that there are some limitations compared to [id number]-zk-tooj evaluations. We elected to proceed. Subjective Patient [...] Barb Amador MD documented in this encounter [facility] 12-21-2021 Instructions Barb Amador MD - 12/21/2021 1:33 PM EST Parkinson's Disease Continue the medication Use seroquel at night If you decide that you want to switch to Dr Royal let me know documented in this encounter [facility] 11-09-2021 Miscellaneous Notes Spoke to Bryanna (Pharmacist) for clarification of patient's prescription carbidopa-levodopa (SINEMET) 25-100 mg per tablet [facility] will disp 540 (90 day supply) will 3 refills Please sign script that was called in documented in this encounter [facility] 11-05-2021 History of Present illness Narrative [...] on at 1230pm. documented in this encounter [facility] 11-05-2021 History of Present illness Narrative I called on 11/05/21 to discuss the results of the meeting and to discuss questions documented in this encounter [facility] 11-05-2021 History of Present illness Narrative [...] Amador will call. documented in this encounter [facility] 11-03-2021 History of Present illness Narrative Images from the original note were not included. SDR - 0.34 with 973 available elements. Other than the low SDR no significant CT deviations noted. documented in this encounter [facility] 10-28-2021 History of Present illness Narrative Images from the original note were not included. [facility] Physical Therapy Evaluation Today's [...] he wants to follow-up here or in [place] as it is significantly closer to home. [...] medications for tremor - has tried one. Dickerson drunk all of th time. Freezing of [...] mobility Social Support: Patient lives with others. Sikh, social, or cultural considerations to be made [...] in the last 12 months: Yes (concussion) Sikh, social, or cultural considerations to be made [...] at this time were answered. CPT Code 40198 Low 67153 Moderate 14007 High History 0 1-2 3+ Comorbidities: chronic [...] Clinical Impression: . Kevin Griffith presents to [facility] outpatient neurological rehab services for PT [...] above number. Sarah Mckenzie, PT STATE LICENSE, PT.[id number] documented in this encounter [facility] 10-05-2021 Instructions Barb Amador MD - 10/05/2021 11:[address] Head Physical therapy DATSCAN-the yes/no Parkinson's disease test Jim Batreskarson is the navigator Dr. Barb Amador MD Neurology Office Information Jaspreet Qureshi MA Office# documented in this encounter [facility] 10-05-2021 History of Present illness Narrative [...] he wants to follow-up here or in [place] as it is significantly closer to home. [...] Without Contrast; Future - Ambulatory Ref to [facility] (PT/OT/ST); Future Patient Instructions Tremor CT Head Physical therapy DATSCAN-the yes/no Parkinson's disease test Jim Bradford is the navigator Dr. Barb Amador MD Neurology Office Information Jaspreet Qureshi MA Office# Dr. Barb Amador MD Neurology Office Information Jaspreet Qureshi MA Office# Barb Amador MD documented in this encounter [facility] 05-19-2021 History of Present illness Narrative [...] with simple mask at 10 LPM oxygen. field contact technician called. Patient brought to OR for implantation of spinal stimulator today. Patient with history of cardiac arrest during last lumbar surgery with general anesthesia. During induction patient's blood pressure dropped to 60s systolic and 40s diastolic. In light of patient's history, the decision was made to cancel the case. Patient's informed. Mame Machado PA-C documented in this encounter [employer] Phone: 05-05-2021 Hospital Discharge instructions Kori Casillas RN - 05/05/2021 Shower with the Hibiclens product given to you in Pre-Admission Testing. Follow the instructions and wear clean clothes to bed and clean linen on the bed the night before surgery. Follow the instructions and shower the morning of surgery and wear clean, comfortable clothes to the hospital. Please bring your [employer] Surgical Information folder on the day of [...] call your surgeon. You may use the bridge builder parking located at the main entrance on [address] [facility] and take the H elevator to the first floor for same day surgery. Take a left after exiting the elevator and check in at the desk. The following attachments cannot be sent through Care Everywhere.Laminotomy and Laminectomy: General Info (Persian)documented in this encounter [employer] Work Phone: documented in this encounter [employer] Work Phone: Evaluation note* Diagnosis Abnormal electrocardiogram (ECG) (EKG) Shortness of breath Pre-op testing Preoperative examination, unspecified Abnormal EKG Nonspecific abnormal electrocardiogram (ECG) (EKG) documented in this encounter [employer] Work Phone: Evaluation note* Diagnosis Tremor, essential- Primary Essential and other specified forms of tremor documented in this encounter [facility] note* Diagnosis Tremor- Primary Abnormal involuntary movements documented in this encounter [facility] note* Diagnosis Tremor Abnormal involuntary movements Impaired mobility and activities of daily living Impairment of balance documented in this encounter [facility] note* Diagnosis Parkinson's disease (HCC)- Primary Paralysis agitans documented in this encounter [facility] note* Diagnosis Parkinsonism, unspecified Parkinsonism type (HCC)- Primary Essential tremor Essential and other specified forms of tremor Dysphagia, unspecified type Gait instability Abnormality of gait documented in this encounter [facility] note* Diagnosis Parkinsonism, unspecified Parkinsonism type (HCC)- Primary Dysphagia, oropharyngeal phase Dysarthria documented in this encounter [facility] note* Diagnosis Parkinson disease (HCC)- Primary Paralysis agitans documented in this encounter [facility] note* Diagnosis Gait instability- Primary Abnormality of gait Parkinsonism, unspecified Parkinsonism type (HCC) Dysphasia Other speech disturbance Oropharyngeal dysphagia Dysphagia, oropharyngeal phase Decreased activities of daily living (ADL) documented in this encounter [facility] note* Diagnosis Parkinsonism, unspecified Parkinsonism type (HCC)- Primary Depression, unspecified depression type Anxiety Anxiety state, unspecified Orthostatic lightheadedness Dizziness and giddiness Dysphagia, unspecified type documented in this encounter [facility] note* Diagnosis Parkinsonism, unspecified Parkinsonism type (HCC)- Primary Gait instability Abnormality of gait Leg weakness, bilateral Other musculoskeletal symptoms referable to limbs Imbalance Abnormality of gait documented in this encounter [facility] note* Diagnosis MELISSA (generalized anxiety disorder)- Primary Generalized anxiety disorder Depression, unspecified depression type Parkinsonism, unspecified Parkinsonism type (HCC) documented in this encounter [facility] note* Diagnosis Parkinsonism, unspecified Parkinsonism type (HCC)- Primary Gait instability Abnormality of gait Leg weakness, bilateral Other musculoskeletal symptoms referable to limbs Imbalance Abnormality of gait documented in this encounter [facility] note* Diagnosis Parkinsonism, unspecified Parkinsonism type (HCC)- Primary Orthostatic hypotension Anxiety Anxiety state, unspecified documented in this encounter [facility] Reason for Referral Status Reason Specialty Diagnoses / Procedures Re ferred By Contact Referred To Contact Open Cardiology Diagnoses Pre-op testing Abnormal EKG Shortness of breath Procedures ECHO Pharmacological Stress Test Raeann Holland, WASTE DUSTER - PHARMACEUTICAL OPERATOR 1 [facility] [address] [place] [address] Specialty Diagnoses / Procedures Referred By Contac t Referred To Contact Neurology Diagnoses Tremor, essential JolliffPatricia MD [address] [facility] [address] [place] [address] Barb Amador MD [address] [place] [address] [place] [address] Referral ID Status Reason Start Date Expiration Date V isits Requested Visits Authorized [id number] Pending Review 09/27/2021 09/27/2022 1 1 Specialty Diagnoses / Procedures Referred By Contac t Referred To Contact Rehabilitation Diagnoses Tremor Barb Amador MD [address] [place] [address] [address] [place] [address] Referral ID Status Reason Start Date Expiration Date V isits Requested Visits Authorized [id number] Authorized 10/05/2021 10/05/2022 1 1 Specialty Diagnoses / Procedures Referred By Contac t Referred To Contact Radiology Diagnoses Tremor Procedures CT Head Or Brain Without Contrast Barb Amador MD [address] [place] [address] [place] [address] Referral ID Status Reason Start Date Expiration Date V isits Requested Visits Authorized [id number] New Request 10/05/2021 10/05/2022 1 1 Specialty Diagnoses / Procedures Referred By Contac t Referred To Contact Radiology Diagnoses Tremor Procedures NM Brain Datscan S[place] [address] [place] [address] [place] [address] Nuclear [facility] [address] [place] [address] Referral ID Status Reason Start Date Expiration Date V isits Requested Visits Authorized [id number] Pending Review 10/05/2021 10/05/2022 4 4 Specialty Diagnoses / Procedures Referred By Contac t Referred To Contact Diagnoses Parkinsonism, unspecified Parkinsonism type (HCC) Procedures PROVIDER ORDERED FOLLOW UP OFFICE/OUTPATIENT [facility] 60-74 MINUTES Jaylyn Sumner MD [address] [address] Referral ID Status Reason Start Date Expiration Date Visits Requested Visits Authorized [id number] Authorized PCP Requested Referral 03/17/2022 06/15/2022 1 1 Specialty Diagnoses / Procedures Referred By Contac t Referred To Contact Neurology / NEUROLOGICAL ZOROASTRIANISM Diagnoses Parkinsonism, unspecified Parkinsonism type (HCC) Procedures CONSULT TO [facility] OFFICE/OUTPATIENT [facility] 60-74 MINUTES Jaylyn Sumner MD [address] [address] [facility] [address] [place] [address] Referral ID Status Reason Start Date Expiration Date Visits Requested Visits Authorized [id number] Authorized PCP Requested Referral 03/17/2022 03/17/2023 1 1 Specialty Diagnoses / Procedures Referred By Contac t Referred To Contact [facility] Diagnoses Parkinsonism, unspecified Parkinsonism type (HCC) Gait instability Procedures CONSULT TO PHYSICAL THERAPY PHYSICAL THERAPY EVALUATION HIGH COMPLEX 45 MINS Jaylyn Sumner MD [address] [address] [facility] [address] [address] Referral ID Status Reason Start Date Expiration Date Visits Requested Visits Authorized [id number] Authorized PCP Requested Referral Auto-Generate d Referral 03/29/2022 03/29/2023 99 99 Specialty Diagnoses / Procedures Referred By Contac t Referred To Contact [facility] Diagnoses Parkinsonism, unspecified Parkinsonism type (HCC) Gait instability Decreased activities of daily living (ADL) Procedures CONSULT TO VARIETY SAW OPERATOR OCCUPATIONAL THERAPY EVAL HIGH COMPLEX 60 MINS Jaylyn Sumner MD [address] [address] [facility] [address] [address] Referral ID Status Reason Start Date Expiration Date Visits Requested Visits Authorized [id number] Authorized PCP Requested Referral Auto-Generate d Referral 03/29/2022 03/29/2023 99 99 Specialty Diagnoses / Procedures Referred By Contac t Referred To Contact Diagnoses Parkinsonism, unspecified Parkinsonism type (HCC) Oropharyngeal dysphagia Procedures CONSULT TO SPEECH THERAPY Jaylyn Sumner MD [address] [place] [address] Referral ID Status Reason Start Date Expiration Date Visits Requested Visits Authorized [id number] Authorized PCP Requested Referral 03/29/2022 06/27/2022 3 3 Referral ID Status Reason Start Date Expiration Date Visits Requested Visits Authorized [id number] Authorized PCP Requested Referral 08/04/2023 1 1 Specialty Diagnoses / Procedures Referred By Contac t Referred To Contact [facility] Diagnoses Parkinsonism, unspecified Parkinsonism type (HCC) Procedures CONSULT TO PHYSICAL THERAPY PHYSICAL THERAPY EVALUATION HIGH COMPLEX 45 MINS Jaylyn Sumner MD [address] [place] [id number] [facility] [address] [address] Referral ID Status Reason Start Date Expiration Date Visits Requested Visits Authorized [id number] Authorized PCP Requested Referral Auto-Generate d Referral 08/04/2022 08/04/2023 99 99 Specialty Diagnoses / Procedures Referred By Contac t Referred To Contact Diagnoses Parkinsonism, unspecified Parkinsonism type (HCC) Depression, unspecified depression type Procedures CONSULT TO PSYCHIATRY OFFICE/OUTPATIENT NEW [facility]IGH [facility] 60-74 MINUTES Jaylyn Sumner MD [address] [place] [id number] Referral ID Status Reason Start Date Expiration Date Visits Requested Visits Authorized [id number] Pending Review PCP Requested Referral 08/04/2022 08/04/2023 1 1 Specialty Diagnoses / Procedures Referred By Contac t Referred To Contact Diagnoses Depression, unspecified depression type Procedures PROVIDER ORDERED FOLLOW UP OFFICE/OUTPATIENT [facility] 60-[place] [address] [place] [address] Referral ID Status Reason Start Date Expiration Date Visits Requested Visits Authorized [id number] Authorized PCP Requested Referral 11/28/2022 09/02/2023 1 1 Specialty Diagnoses / Procedures Referred By Contac t Referred To Contact [facility] Diagnoses Parkinsonism, unspecified Parkinsonism type (HCC) Procedures CONSULT TO VARIETY SAW OPERATOR OCCUPATIONAL THERAPY EVAL HIGH COMPLEX 60 MINS Leni Escudero, WASTE DUSTER.PHARMACEUTICAL OPERATOR [address] [place] [address] [facility] [address] [address] Referral ID Status Reason Start Date Expiration Date Visits Requested Visits Authorized [id number] Authorized PCP Requested Referral Auto-Generate d Referral 12/12/2022 12/12/2023 99 99 Specialty Diagnoses / Procedures Referred By Contac t Referred To Contact [facility] Diagnoses Parkinsonism, unspecified Parkinsonism type (HCC) Procedures CONSULT TO PHYSICAL THERAPY PHYSICAL THERAPY EVALUATION HIGH COMPLEX 45 MINS Leni Escudero, WASTE DUSTER.PHARMACEUTICAL OPERATOR [address] [place] [address] [facility] [address] [address] Referral ID Status Reason Start Date Expiration Date Visits Requested Visits Authorized [id number] Authorized PCP Requested Referral Auto-Generate d Referral 12/12/2022 12/12/2023 99 99 Advance Directives No Advanced Directives Records FoundDocuments on File Type Date Recorded Patient Social Director Expl anation ACP-Advance Directive ACP-Power of Blankbook Forwarder Latest Code Status on File Code Status Date Activated Date Inactivated Comments Full Code 04/17/2018 6:13 AM 04/17/2018 1:26 PM Documents on File Type Date Recorded Patient Social Director Expl anation ACP-Advance Directive ACP-Power of Blankbook Forwarder Latest Code Status on File Code Status Date Activated Date Inactivated Comments Full Code 05/19/2021 6:48 AM Full Code 04/17/2018 6:13 AM 04/17/2018 1:26 PM Documents on File Type Date Recorded Patient Social Director Expl anation Advance Directives and Living Will Documents on File Type Date Recorded Patient Social Director Expl anation Advance Directives and Living Will Documents on File Type Date Recorded Patient Social Director Expl anation Advance Directives and Livin g [...] or prosecute any alcohol or drug abuse patient.[facility] Center[facility] the event this information is protected by the Federal Confidentiality of Alcohol and Drug Abuse Patient Records regulations: The Federal rules restrict any use of the information to criminally investigate or prosecute any alcohol or drug abuse patient.[facility] CenterIn the event this information is protected by the Federal Confidentiality of Alcohol and Drug Abuse Patient Records regulations: The Federal rules restrict any use of the information to criminally investigate or prosecute any alcohol or drug abuse patient.[facility] CenterIn the event this information is protected by the Federal Confidentiality of Alcohol and Drug Abuse Patient Records regulations: The Federal rules restrict any use of the information to criminally investigate or prosecute any alcohol or drug abuse patient.[facility] CenterIn the event this information is protected by the Federal Confidentiality of Alcohol and Drug Abuse Patient Records regulations: The Federal rules restrict any use of the information to criminally investigate or prosecute any alcohol or drug abuse patient.[facility] CenterIn the event this information is protected by the Federal Confidentiality of Alcohol and Drug Abuse Patient Records regulations: The Federal rules restrict any use of the information to criminally investigate or prosecute any alcohol or drug abuse patient.[facility] CenterIn the event this information is protected by the Federal Confidentiality of Alcohol and Drug Abuse Patient Records regulations: The Federal rules restrict any use of the information to criminally investigate or prosecute any alcohol or drug abuse patient.[facility] CenterIn the event this information is protected by the Federal Confidentiality of Alcohol and Drug Abuse Patient Records regulations: The Federal rules restrict any use of the information to criminally investigate or prosecute any alcohol or drug abuse patient.[facility] CenterIn the event this information is protected by the Federal Confidentiality of Alcohol and Drug Abuse Patient Records regulations: The Federal rules restrict any use of the information to criminally investigate or prosecute any alcohol or drug abuse patient.[facility] CenterIn the event this information is protected by the Federal Confidentiality of Alcohol and Drug Abuse Patient Records regulations: The Federal rules restrict any use of the information to criminally investigate or prosecute any alcohol or drug abuse patient.[facility] CenterIn the event this information is protected by the Federal Confidentiality of Alcohol and Drug Abuse Patient Records regulations: The Federal rules restrict any use of the information to criminally investigate or prosecute any alcohol or drug abuse patient.[facility] CenterIn the event this information is protected by the Federal Confidentiality of Alcohol and Drug Abuse Patient Records regulations: The Federal rules restrict any use of the information to criminally investigate or prosecute any alcohol or drug abuse patient.[facility] CenterIn the event this information is protected by the Federal Confidentiality of Alcohol and Drug Abuse Patient Records regulations: The Federal rules restrict any use of the information to criminally investigate or prosecute any alcohol or drug abuse patient.[facility] CenterIn the event this information is protected by the Federal Confidentiality of Alcohol and Drug Abuse Patient Records regulations: The Federal rules restrict any use of the information to criminally investigate or prosecute any alcohol or drug abuse patient.[facility] CenterIn the event this information is protected by the Federal Confidentiality of Alcohol and Drug Abuse Patient Records regulations: The Federal rules restrict any use of the information to criminally investigate or prosecute any alcohol or drug abuse patient.[facility] CenterIn the event this information is protected by the Federal Confidentiality of Alcohol and Drug Abuse Patient Records regulations: The Federal rules restrict any use of the information to criminally investigate or prosecute any alcohol or drug abuse patient.[facility] CenterIn the event this information is protected by the Federal Confidentiality of Alcohol and Drug Abuse Patient Records regulations: The Federal rules restrict any use of the information to criminally investigate or prosecute any alcohol or drug abuse patient.[facility] CenterIn the event this information is protected by the Federal Confidentiality of Alcohol and Drug Abuse Patient Records regulations: The Federal rules restrict any use of the information to criminally investigate or prosecute any alcohol or drug abuse patient.[facility] CenterIn the event this information is protected by the Federal Confidentiality of Alcohol and Drug Abuse Patient Records regulations: The Federal rules restrict any use of the information to criminally investigate or prosecute any alcohol or drug abuse patient.[facility] CenterIn the event this information is protected by the Federal Confidentiality of Alcohol and Drug Abuse Patient Records regulations: The Federal rules restrict any use of the information to criminally investigate or prosecute any alcohol or drug abuse patient.[facility] Reason for Visit (unrecogniz ed section and content) Specialty Diagnoses / Procedures Referred By Michel t Referred To Contact Diagnoses Parkinsonism, unspecified Parkinsonism type (HCC) Procedures PROVIDER ORDERED FOLLOW UP OFFICE/OUTPATIENT [facility] 60-74 MINUTES Jaylyn Sumner MD [address] [address] Referral ID Status Reason Start Date Expiration Date V isits Requested Visits Authorized [id number] Closed PCP Requested Referral 11/03/2022 08/04/2023 1 1 Status Reason Specialty Diagnoses / Procedures Re ferred By Contact Referred To Contact Open Cardiology Diagnoses Pre-op testing Abnormal EKG Shortness of breath Procedures ECHO Pharmacological Stress Test Raeann Holland, WASTE DUSTER - PHARMACEUTICAL OPERATOR 1 [facility] [address] [place] [address] Reason Comments Consult Ref by: PATRICIA MCGOWAN 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,essential (HIFU interest - saw us on the website), Tremors Dx; ET approx 1 year Specialty Diagnoses / Procedures Referred By Contac t Referred To Contact Neurology Diagnoses Tremor, essential Juan M Patricia Ramon MD [address] [facility] [address] [place] [address] Barb Amador MD [address] [facility] [address] [place] [address] Referral ID Status Reason Start Date Expiration Date Visits Re quested Visits Authorized [id number] Closed 09/27/2021 09/27/2022 1 1 Reason Comments Physical Therapy Neuro Specialty Diagnoses / Procedures Referred By Contac t Referred To Contact Rehabilitation Diagnoses Tremor Barb Amador MD [facility]5 [facility] [address] [place] [address] [facility] [address] [place] [address] Referral ID Status Reason Start Date Expiration Date V isits Requested Visits Authorized [id number] Authorized 10/05/2021 10/05/2022 1 199 Reason Onset Date Comments Medication Refill 11/05/2021 Reason Onset Date Comments Medication Refill 11/09/2021 Reason Comments Follow Up Parkinson's Reason Comments Upcoming Appointment Pre-rooming phone c all Reason Comments Speech Evaluation Specialty Diagnoses / Procedures Referred By Contac t Referred To Contact Speech-Language Pathologist / SPEECH THERAPY Diagnoses PD Clinic Procedures [facility] Jaylyn Sumner MD [address] [address] Amaya Deleon, [facility] LOOM OPERATOR HELPER [address] [place] [address] Referral ID Status Reason Start Date Expiration Date V isits Requested Visits Authorized [id number] Authorized 03/29/2022 06/27/2022 99 99 Reason Comments PT Eval Patient Education Specialty Diagnoses / Procedures Referred By Contac t Referred To Contact Physical Therapy / PHYSICAL THERAPY Diagnoses PD Clinic Procedures [facility] Jaylyn Sumner MD [address] [address] Maine Medel, PT, DPT [address] [place] [address] Referral ID Status Reason Start Date Expiration Date V isits Requested Visits Authorized [id number] Authorized 03/29/2022 06/27/2022 99 99 Specialty Diagnoses / Procedures Referred By Contac t Referred To Contact Neurology / NEUROLOGICAL ZOROASTRIANISM Diagnoses Parkinsonism, unspecified Parkinsonism type (HCC) Procedures CONSULT TO [facility] OFFICE/OUTPATIENT [facility] 60-74 MINUTES Jaylyn Sumner MD [address] [address] [facility] [address] [place] [address] Referral ID Status Reason Start Date Expiration Date V isits Requested Visits Authorized [id number] Closed PCP Requested Referral 03/17/2022 03/17/2023 1 1 Reason Onset Date Comments Refill Request 05/18/2022 Reason Comments Appointment Earlier appointment request d/t worsening symptoms Reason Comments Follow Up Referral ID Status Reason Start Date Expiration Date V isits Requested Visits Authorized [id number] Closed PCP Requested Referral 03/17/2022 06/15/2022 1 1 Reason Comments Physical Therapy Specialty Diagnoses / Procedures Referred By Contac t Referred To Contact [facility] Diagnoses Parkinsonism, unspecified Parkinsonism type (HCC) Procedures CONSULT TO PHYSICAL THERAPY PHYSICAL THERAPY EVALUATION [facility] COMPLEX 45 MINS Jaylyn Sumner MD [address] [address] [facility] [address] [address] Referral ID Status Reason Start Date Expiration Date Visits Requested Visits Authorized [id number] Authorized PCP Requested Referral Auto-Generate d Referral 08/04/2022 08/04/2023 99 99 Reason Comments New Patient Specialty Diagnoses / Procedures Referred By Contac t Referred To Contact Diagnoses Parkinsonism, unspecified Parkinsonism type (HCC) Depression, unspecified depression type Procedures CONSULT TO PSYCHIATRY OFFICE/OUTPATIENT [facility] 60-74 MINUTES Jaylyn Sumner MD [address] [address] Referral ID Status Reason Start Date Expiration Date Visits Requested Visits Authorized [id number] Pending Review PCP Requested Referral 08/04/2022 08/04/2023 [...] DATE CREATED AUTHOR AUTHOR'S ORGANIZ ATION 05/20/2021 [facility] DATE CREATED AUTHOR AUTHOR'S ORGANIZ ATION 12/22/2021 [facility] DATE CREATED AUTHOR AUTHOR'S ORGANIZ ATION 02/18/2023 [facility] DATE CREATED AUTHOR AUTHOR'S ORGANIZ ATION 02/19/2023 [facility] Scheduled Active and Recently Administ ered [...] Care Teams (unrecognized sec tion and content) Medical Coding Technician Relationship Specialty Start Date End Date Patricia Mcgowan MD [address] [facility] [place] [address] [place], [place] [address] PCP - General Family Medicine 10/28/21 Medical Coding Technician Relationship Specialty Start Date End Date Patricia Mcgowan MD [address] [facility] [address] [place], [place] [address] PCP - General Family Medicine 10/28/21 Medical Coding Technician Relationship Specialty Start Date End Date Patricia Mcgowan MD [address] [facility] [address] [place], [place] [address] PCP - General Family Medicine 10/28/21 Medical Coding Technician Relationship Specialty Start Date End Date Patricia Mcgowan MD [address] [facility] [address] [place], [place] [address] PCP - General Family Medicine 10/28/21 Medical Coding Technician Relationship Specialty Start Date End Date Patricia Mcgowan MD [address] [facility] [address] [place] [address] PCP - General Family Medicine 10/28/21 Medical Coding Technician Relationship Specialty Start Date End Date Patricia Mcgowan MD [address] [place] [address] PCP - General Family Medicine 10/28/21 Medical Coding Technician Relationship Specialty Start Date End Date Ja Cooley [address] [place] [address] PCP - General Family Practice 03/17/22 Medical Coding Technician Relationship Specialty Start Date End Date Ja Cooley [address] [place] [address] PCP - General Family Practice 03/17/22 Medical Coding Technician Relationship Specialty Start Date End Date Ja Cooley [address] [place] [address] PCP - General Family Practice 03/17/22 Medical Coding Technician Relationship Specialty Start Date End Date Ja Cooley [address] [place] [address] PCP - General Family Practice 03/17/22 Medical Coding Technician Relationship Specialty Start Date End Date Ja Cooley [address] [place] [address] PCP - General Family Practice 03/17/22 Medical Coding Technician Relationship Specialty Start Date End Date Ja Cooley [address] [place] [address] PCP - General Family Practice 03/17/22 Medical Coding Technician Relationship Specialty Start Date End Date Ja Cooley [address] [place] [address] PCP - General Family Practice 03/17/22 Medical Coding Technician Relationship Specialty Start Date End Date Ja Cooley [address] [place] [address] PCP - General Family Practice 03/17/22 Medical Coding Technician Relationship Specialty Start Date End Date Rejipriti Ja Ravindererma [address] [facility] [address] [place] [address] PCP - General Family Practice 03/17/22 Medical Coding Technician Relationship Specialty Start Date End Date Ja Cooley [address] [facility] [address] [place] [address] PCP - General Family Medicine 03/17/22 Medical Coding Technician Relationship Specialty Start Date End Date Ja Cooley [address] [facility] [address] [place] [address] PCP - General Family Medicine 03/17/22 Medical Coding Technician Relationship Specialty Start Date End Date Ja Cooley [address] [facility] [address] [place] [address] PCP - General Family Medicine 03/17/22 Erika May, WASTE DUSTER.PHARMACEUTICAL OPERATOR [address] [place] [address] Specialty Motor Vehicle Lecturer Neurology 09/07/22 Medical Coding Technician Relationship Specialty Start Date End Date Ja Cooley [address] [facility] [address] [place] [address] PCP - General Family Medicine 03/17/22 Erika May, WASTE DUSTER.PHARMACEUTICAL OPERATOR [address] [place] [address] Specialty Motor Vehicle Lecturer Neurology 09/07/22 Medical Coding Technician Relationship Specialty Start Date End Date Ja Cooley [address] [facility] [address] [place] [address] PCP - General Family Medicine 03/17/22 Erika May, WASTE DUSTER.PHARMACEUTICAL OPERATOR [address] [place] [facility] [address] Specialty Motor Vehicle Lecturer Neurology 09/07/22 Medical Coding Technician Relationship Specialty Start Date End Date Ja Cooley [address] [facility] [address] [place] [address] PCP - General Family Medicine 03/17/22 Erika May, WASTE DUSTER.PHARMACEUTICAL OPERATOR [address] [place] [facility] [address] Specialty Motor Vehicle Lecturer Neurology 09/07/22 Tatiana Rodas WASTE DUSTER.PHARMACEUTICAL OPERATOR [address] [place] [address] Specialty Motor Vehicle Lecturer Neurology 12/05/22 Medical Coding Technician Relationship Specialty Start Date End Date Ja Cooley [address] [facility] [address] [place] [address] PCP - General Family Medicine 03/17/22 Erika May, WASTE DUSTER.PHARMACEUTICAL OPERATOR [address] [facility] [address] Specialty Motor Vehicle Lecturer Neurology 09/07/22 Tatiana Rodas WASTE DUSTER.PHARMACEUTICAL OPERATOR [address] [place] [facility] [place] [address] Specialty Motor Vehicle Lecturer Neurology 12/05/22 Medical Coding Technician Relationship Specialty Start Date End Date Ja Cooley [address] [facility] [address] [place] [address] PCP - General Family Medicine 03/17/22 Erika May, WASTE DUSTER.PHARMACEUTICAL OPERATOR [address] [facility] [place] [address] Specialty Motor Vehicle Lecturer Neurology 09/07/22 Tatiana Rodas WASTE DUSTER.PHARMACEUTICAL OPERATOR [address] [place] [address] Specialty Motor Vehicle Lecturer Neurology 12/05/22 Medical Coding Technician Relationship Specialty Start Date End Date LenoraJa [address] [facility] [address] [place] [address] PCP - General Family Medicine 03/17/22 Erika May, WASTE DUSTER.PHARMACEUTICAL OPERATOR [address] [facility] [address] Specialty Motor Vehicle Lecturer Neurology 09/07/22 Tatiana Rodas APRN.PHARMACEUTICAL OPERATOR [address] [place] [facility] [place] [address] Specialty Motor Vehicle Lecturer Neurology 12/05/22 Medical Coding Technician Relationship Specialty Start Date End Date Ja Cooley [address] [facility] [address] [place] [address] PCP - General Family Medicine 03/17/22 Erika May, WASTE DUSTER.PHARMACEUTICAL OPERATOR [address] [facility] [address] Specialty Motor Vehicle Lecturer Neurology 09/07/22 Tatiana Rodas APRN.PHARMACEUTICAL OPERATOR [address] [place] [address] Specialty Motor Vehicle Lecturer Neurology 12/05/22 FOR RECORDS PERTAINING TO PATIENTS [...] BE BASED ON THE PRIMARY CLINICAL RECORDS. [facility] [employer] [facility]. provides no warranty or guarantee of the accuracy or completeness of information in this document.
[2023-12-15 17:43] LABS: Absolute Lymphocyte Count 3.13 X10^3/uL (0.83-4.51); Basophil# 0.06 X10^3/uL; Basophil% 0.7 % (0-1); Eosinophil# 0.15 X10^3/uL; Eosinophils% 1.8 % (0-5); Hematocrit 46.1 % (40-54); Hemoglobin 15.3 g/dL (13.0-16.5); Lymphocyte # 3.13 X10^3/ul (0.83-4.51); Lymphocyte % 38.1 % (19-41); Mean Corp Hgb Conc 33.2 g/dL (32-36); Mean Corpuscular Hgb 29.9 pg (27.0-32.0); Mean Platelet Vol. 11.1 fl (6.2-12.0); Monocyte# 0.86 X10^3/uL; Monocyte% 10.5 % (0-10); NRBC Flagged by Analyzer 0 % (0-5); Neutrophil # 3.97 X10^3/uL (2.7-7.7); Neutrophil % 48.4 % (47-70); Platelet Count 240 K/mm3 (150-450); RBC Distribution Width CV 13.2 % (11.6-14.6); RBC Distribution Width SD 43.5 fl (35.1-43.9); Red Blood Count 5.12 M/mm3 (4.6-6.2); White Blood Count 8.2 K/mm3 (4.4-11.0)
[2023-12-15 18:08] LABS: Hemoglobin A1c 5.9 % (3.8-5.6)
[2023-12-15 18:24] LABS: ALB/GLOB Ratio 1.1 RATIO (0.9-2.4); AST(SGOT) 14 U/L (15-37); Alanine Aminotransfer ALT/SGPT 12 U/L (16-61); Albumin, Serum 3.7 g/dL (3.2-5.0); Alkaline Phosphatase 67 U/L (45-117); Anion Gap 4 (5-15); BUN 18 mg/dL (7-18); BUN/Creat Ratio 19.3 RATIO (10-20); Calcium,Total 9.2 mg/dL (8.5-10.1); Chloride 107 mmol/L (98-107); Cholesterol 136 mg/dL (200); Creatinine, Serum 0.93 mg/dL (0.70-1.30); EST Glomerular Filtration Rate 83 mL/min (>60); Est Glom Filt Rate - Afr Amer 101 mL/min (>60); Globulin 3.5 g/dL (2.2-4.2); Glucose 87 mg/dL (74-106); High Density Lipoprotein 50 mg/dL; Magnesium 1.9 mg/dL (1.6-2.6); Potassium 3.7 mmol/L (3.5-5.1); Protein, Total 7.2 g/dL (6.4-8.2); Sodium Level 140 mmol/L (136-145); Triglycerides 127 mg/dL; Very Low Density Lipoprotein 25 mg/dL (5-40)
== END | disposition home or self-care (01) ==
PROVIDERS: PCP Family Medicine; Referring Provider Family Medicine; Visit Provider Family Medicine
DX: J18.9 Pneumonia, unspecified organism (principal); I48.91 Unspecified atrial fibrillation; E11.9 Type 2 diabetes mellitus without complications
CPT/HCPCS: 36415; 71046; 80053; 80061; 83036; 83735; 84443; 85025

== ENCOUNTER → 2023-12-26 | Outpatient (CLI) | payer MEDICARE, OTHER, SELFPAY ==
--- NOTE | 2023-12-26 14:42 | RAD_ITS ---
STUDY: X-RAY - RIGHT KNEE REASON FOR EXAM: Male, 78 years old. PAIN TECHNIQUE: 4 view(s) of the knee. COMPARISON: None. FINDINGS: There is a total knee prosthesis in place, otherwise normal visualized distal femur. Normal visualized proximal tibia and fibula. Normal proximal tibiofibular articulation. Postoperative changes with plate along the posterior patella. Trace joint effusion. Borderline soft tissue swelling along the anterior infrapatellar region and anterior upper calf. No acute fracture. The soft tissue structures are unremarkable. RAD/Knee 4 or More Views IMPRESSION: Knee prosthesis in place with no acute fracture or subluxation. Trace joint effusion. Electronically Signed: Pearl Munoz MD at 1:02 EST ,
--- NOTE | 2023-12-26 14:55 | RAD_ITS ---
STUDY: X-RAY - LEFT KNEE REASON FOR EXAM: Male, 78 years old. PAIN TECHNIQUE: 4 view(s) of the knee. COMPARISON: December 26, 2023 right knee x-ray FINDINGS: There is a visualized right knee replacement with 3 hardware heart 3 parts. There appears to be in anatomic position alignment. There is minimal if any soft tissue edema. The bones are osteopenic. RAD/Knee 4 or More Views IMPRESSION: Status post right knee arthroplasty. Electronically Signed: Jammie Gould MD at 5:36 EST ,
--- NOTE | 2023-12-26 15:10 | RAD_ITS ---
STUDY: X-RAY CHEST REASON FOR EXAM: Male, 78 years old. CHRONIC COUGH TECHNIQUE: PA and lateral views of the chest. COMPARISON: December 15, 2025, November 22, 2023, NovemberOctober 21 FINDINGS: The lungs are clear and expanded. There is no demonstrated pleural abnormality. Normal size heart. Normal mediastinum and javier. Normal visualized pulmonary arteries. Normal visualized aortic arch and descending thoracic aorta. There are diffuse degenerative changes of the visualized thoracic spine. Normal visualized ribs, clavicles, and shoulders. There is no demonstrated abnormality of the visualized soft tissue structures of the upper abdomen. RAD/Chest PA and Lateral IMPRESSION: Stable chest. No visualized acute focal infiltrate. Electronically Signed: Jammie Gould MD at 5:35 EST ,
== END | disposition home or self-care (01) ==
LOC: MTRAD 14:40
PROVIDERS: PCP Family Medicine; Referring Provider Family Medicine; Visit Provider Family Medicine
DX: M25.561 Pain in right knee (principal); M25.562 Pain in left knee; R05.3 Chronic cough
CPT/HCPCS: 71046; 73564

== ENCOUNTER → 2024-01-30 | Outpatient (CLI) | payer MEDICARE, OTHER, SELFPAY ==
--- NOTE | 2024-01-30 13:25 | RAD_ITS ---
INDICATION: SOB, COUGH EXAMINATION/TECHNIQUE: X-RAY - XR Chest 2 Views COMPARISON: December 26, 2023 FINDINGS: LINES/DEVICES: None. LUNGS: No consolidation, edema or effusion. Left basilar atelectasis. No pneumothorax. MEDIASTINUM AND CARDIOVASCULAR STRUCTURES: Cardiac silhouette not enlarged. Central airways and mediastinal contour are unremarkable. BONES AND SOFT TISSUES: Unremarkable. RAD/Chest PA and Lateral IMPRESSION: Left basilar atelectasis. Electronically Signed: Siva Horton DO at 20:06 EDT ,
--- OUTSIDE RECORDS SUMMARY | 2024-01-31 02:33 | XMS RPT_ITS | CCD ---
Author Name Unknown Address [address] [place] [address] Organization [facility] Care Team Providers Care Home Extension Agent Name Role Phone FelipeEmigdio galvan Gurwinder (Historic) Primary Care Prov ider Patricia Mcgowan Primary Care Provider [phone] Unavailable Primary Care Provider Daniel Mcgowan MD, [...] Care Unavailable SELENE, BARB MAS Admitting Unavailab SARAH Peace Attending Unavailable SELENEBARB Admitting Unavailab HARPAL Brody Attending Unavailable JOLLIFF, PATRICIA TRISTEN Primary Care Unavailable SELENEBARB Referring Unavailab le SELENE, BARB MAS Attending Unavailab le JOLLIFF, PATRICIA RAMON Primary Care Unavailable SELENEBARB Referring Unavailab le JOLLIFF, [facility] Primary Care Unavailable SELENE, BARB MAS Attending Unavailab le SELENEBARB Referring Unavailab PATRICIA Jimenez Primary Care Unavailable JASPREET QURESHI Attending Unavailable Lenora Ja Cord Primary Care Provider Lenora [facility] Primary Care Provider Lenora [facility] Primary Care Provider Lenora [facility] Primary Care Provider Lalo STRIP CATCHER.MOP WORKER, Erika K Unavailable Lenora [facility] Primary Care Provider Lalo STRIP CATCHER.MOP WORKER, Erika K Unavailable STRIP CATCHER.MOP WORKER, Tatiana Unavailable PATRICIA MCGOWANER Primary Care Unavailable LIZBETH, JAYLYN Attending Unavailable LENI ESCUDERO Attending Unavailable LIZBETH, JAYLYN Referring Unavailable [facility] Primary Care Unavailabl e LIZBETH, JAYLYN Referring Unavailable ALEIDA RAMIREZ Attending Unavailable [facility], [facility] Primary Care Unavailabl e LIZBETH, JAYLYN Attending Unavailable [facility], [facility] Primary Care Unavailabl e LIZBETH, JAYLYN Attending Unavailable LIZBETH, JAYLYN Referring [facility]available [facility] Primary Care Unavailabl e SCH[facility], [facility] Primary Care Unavailabl e MAINE MEDEL Attending Unavailable LIZBETH, JAYLYN Referring Unavailable [facility] Primary Care Unavailabl e KORI ACEVEDO Attending Unavailable LIZBETH, JAYLYN Referring Unavailable [facility] Primary Care Unavailabl e KORI ACEVEDO Attending Unavailable LIZBETH, JAYLYN Referring Unavailable LIZBETH, JAYLYN Referring Unavailable [facility] Care Unavailabl e BEBBKORI Attending Unavailable BEBBKORI Attending Unavailable LIZBETH, JAYLYN Referring Unavailable [facility] Primary Care Unavailabl e SCH[facility], [facility] Primary Care Unavailabl e LIZBETH, JAYLYN Referring Unavailable [facility] Primary Care Unavailabl e LIZBETH, JAYLYN Referring Unavailable Allergies Allergy Classification Reported Allergen(s) Allergy Type Date of Onset Reaction(s) Facility DOPamine Antagonists (3 sources) Metoclopramide Drug Allergy 03-01-20 18 Anxiety [facility] Unclassified (3 sources) Seasonal allergy Propensity to adverse reactions to substance 05-05-20 21 [facility] (12 sources) Metoclopramide; Translations: [METOCLOPRAMIDE HCL] Drug Allergy 10-05-20 [facility] (20 sources) Metoclopramide; Translations: [METOCLOPRAMIDE] Drug Allergy 08-25-20 Mental Status Change [facility] Work Phone: Medications Current Medications Medication Drug Class(es) Dates Sig (Normalized) Sig (Original) [id number] 200 actuat albuterol 0.09 mg/actuat metered dose [...] 13:47-0500 Body height 177.8 cm Leni Escudero APRN.MOP WORKER Work Phone: [facility] 12-12-2022 13:47-0500 Body weight 118.3 kg Leni Escudero APRN.MOP WORKER Work Phone: [facility] 12-12-2022 13:47-0500 SaO2% (BldA) [Mass fraction] 96 % Leni Escudero APRN.MOP WORKER Work Phone: [facility] 08-04-2022 13:56-0400 Diastolic blood pressure 86 mm[Hg] Jaylyn Sumner MD Work Phone: [facility] 08-04-2022 13:56-0400 Heart rate 107 /min Jaylyn Sumner MD Work Phone: [facility] 08-04-2022 13:56-0400 Respiratory rate 16 /min Jaylyn Sumner MD Work Phone: [facility] 08-04-2022 13:56-0400 SaO2% (BldA) [Mass fraction] 95 % Jaylyn Sumner MD Work Phone: [facility] 08-04-2022 13:56-0400 Systolic blood pressure 109 mm[Hg] Jaylyn Sumner MD Work Phone: [facility] 03-29-2022 12:09-0400 SaO2% (BldA) [Mass fraction] 98 % Jaylyn Sumner MD Work Phone: [facility] 03-17-2022 15:50-0400 Diastolic blood pressure 77 mm[Hg] Jaylyn Sumner MD Work Phone: [facility] 03-17-2022 15:50-0400 Systolic blood pressure 120 mm[Hg] Jaylyn Sumner MD Work Phone: [facility] 03-17-2022 14:51-0400 Body height 177.8 cm Jaylyn Sumner MD Work Phone: [facility] 03-17-2022 14:51-0400 Body weight 125.76 kg Jaylyn Sumner MD Work Phone: [facility] 03-17-2022 14:51-0400 Heart rate 101 /min Jaylyn Sumner MD Work Phone: [facility] 03-17-2022 14:51-0400 SaO2% (BldA) [Mass fraction] 98 % Jaylyn Sumner MD Work Phone: [facility] 10-05-2021 11:00-0500 Diastolic blood pressure 63 mm[Hg] Barb Amador MD Work Phone: [facility] Encounters Encounter Date Encounter Type Care Provider [...] d ev cleared fda spec home use iNi Altman MD Work Phone: Start: 05-11-2021 ECHOCARDIOGRAM PHARMACOLOGICAL STRESS TEST Raeann Holland STRIP CATCHER - MOP WORKER Work Phone: Start: 05-05-2021 Antibody screen Nii Charlton MD Work Phone: Start: 05-05-2021 Blood count complete automated Raeann Holland STRIP CATCHER - MOP WORKER Work Phone: Start: 05-05-2021 Blood typing serologic abo Raeann Holland STRIP CATCHER - MOP WORKER Work Phone: Start: 05-05-2021 Ecg routine ecg w/le ast 12 lds w/i&r Raeann Holland STRIP CATCHER - MOP WORKER Work Phone: Start: 08-14-2006 CONVERTED SURGICAL PATHOLOGY Wyatt Thompson Work Phone: Start: 02-03-2006 CONVERTED SURGICAL PATHOLOGY Wyatt Thompson Work Phone: Plan of Treatment Date Care Activity Detail Author Start: 01-25-2031 Tetanus vaccination Tetanus: Every 10yrs [facility] Start: 03-11-2023 Adult depression screening assessment DEPRESSION SCREENING [facility] Start: 11-20-2022 ADVANCE DIRECTIVE DISCUSSION ADVANCE DIRECTIVE DISCUSSION [facility] Start: 11-20-2022 DEPRESSION ASSESSMENT DEPRESSION ASSESSMENT [facility] Start: 07-21-2022 Influenza vaccination INFLUENZA (#1) [facility] Start: 05-05-2022 Creatinine measurement Creatinine monitoring [facility] Work Phone: Start: 05-05-2022 Potassium monitoring Potassium monitoring [facility] Work Phone: Start: 12-21-2021 End: 12-21-2021 Telemedicine consultation with patient 12/21/2021 Telemedicine Neurology Barb Amador MD [address] [facility] [address] [place] [address] [facility], Neuroscience Start: 12-15-2021 End: 12-15-2021 Patient encounter procedure 12/15/2021 Appointment Radiology Barb [facility]ador [facility] [address] [facility] [address] [place] [address] [facility] Nuclear Medicine Start: 11-20-2021 ADVANCE DIRECTIVE DISCUSSION ADVANCE DIRECTIVE DISCUSSION [facility] Start: 11-20-2021 DEPRESSION ASSESSMENT DEPRESSION ASSESSMENT [facility] Start: 11-01-2021 End: 11-01-2021 Patient encounter procedure 11/01/2021 Appointment Radiology Barb Amador MD [address] [facility] [address] [place] [address] [facility] [address] Start: 06-03-2021 End: 06-03-2021 Patient encounter procedure 06/03/2021 [place] [address] [place] [id number] [facility] Start: 05-19-2021 End: 05-19-2021 Patient encounter procedure 05/19/2021 Appointment General Surgery Nii Altman MD [address] [place] [address] [facility] General Surgery Start: 05-05-2021 End: 07-04-2021 ECHO Pharmacological Stress Test ECHO Pharmacological Stress Test Echocardiography Routine Pre-op testing Abnormal EKG Shortness of breath Expected: 05/05/2021 (Approximate), Expires: 07/04/2021 [facility] Work Phone: Payers Date Payer Category Payer Unknown [place] [employer]EM[place] [id number] 2021-Present [phone] [address] [place] [address] [id number] 2021 Unknown [id number] 2021 Unknown [id number] 2019 Department of [employer] appiah ( and others) [id number] 2009 Medicare [id number]. [id number] 2009 Medicare [id number]. [id number] 2009 Medicare [id number] [id number]. [id number] 2002 Self-pay [id number] 1944 Unknown [id number] 2.16.840.1.761582.3.579.2. 900 1944 Unknown [id number] 2.16.840.1.746675.3.579.2. 900 1944 Unknown [id number] [id number]. 900 1944 Unknown [id number] 2.16.840.1.240354.3.579.2. 900 1944 Unknown [id number] 2.16.840.1.594734.3.579.2. 900 1944 Unknown [id number] 2.16.840.1.780790.3.579.2. 900 1944 Unknown [id number] [id number]. 900 1944 Unknown [id number] 2.16.840.1.188205.3.579.2. 900 1944 Unknown [id number] [id number]. 900 Social History Date Type Detail Facility Tobacco smoking stat [facility] Unknown if ever smoked [facility] Start: 1945 Sex Assigned At Not on file [facility] Start: 05-05-2021 End: 08-04-2022 Tobacco smoking status SDIS Former smoker [facility] Work Phone: Start: 11-20-1947 End: 11-20-1998 History of tobacco use Current smoker [facility] Start: 11-20-1947 End: 11-20-1998 History of tobacco use Cigarette Smoker [facility] Start: 05-05-2021 End: 05-19-2021 Cigarettes smoked current (pack per day) - Reported [facility] Work Phone: Start: 05-05-2021 End: 08-04-2022 Tobacco use and exposure Never used [facility] Start: 05-05-2021 End: 05-19-2021 Alcohol intake Current non-drinker of alcohol (finding) [facility] Work Phone: Start: 11-15-2021 End: 09-02-2022 Exposure to SARS-CoV-2 (event) Not sure [facility] Tobacco smoking stat [facility] Tobacco smoking consumption unknown [facility] Start: 10-05-2021 End: 12-12-2022 Alcohol intake Lifetime non-drinker (finding) [facility] Start: 08-25-2021 History SDOH Alcohol Frequency 1 [facility] Start: 1945 Sex Assigned At Male C [facility] Start: 07-25-2022 End: 08-04-2022 Exposure to SARS-CoV-2 (event) Yes [facility] Medical Equipment Procedure Code Equipment Code Equipment Origin al Text Equipment Identifier Dates [id number] Start: 01-15-2018 SURE COMFORT PEN NEEDLES 31G X 8 MM MISC [id number] Start: 12-28-2017 blood sugar diagnostic (FreeStyle Lite Strips) strips [id number] Start: 01-15-2018 pen needle, diab etic 31 gauge x 5/16 Ndle [id number] Start: 12-28-2017 Clinical Notes 05-05-2021 to 02-15-2023 Telephone Encounter - Mary Harrison RN - 02/14/2023 3:08 PM EDTTelephone Encounter - Mary Harrison RN - 02/14/2023 3:04 PM EDTTelephone Encounter - Raeann Vizcarra - 02/14/2023 2:22 PM EDTAttachments Note Date & Type Note Facility 02-15-2023 Note HNO ID: [id number] Author: Kori Acevedo, PT, DPT Service: ? Author Type: Physical Therapist Type: Progress Notes Filed: 02/15/2023 7:45 AM Note Text: 02/15/2023 [facility] THERAPY PHYSICAL THERAPY DISCONTINUANCE [...] fx of foot. Kori Acevedo, PT, DPT [facility] 02-14-2023 Miscellaneous Notes MC message sent to patient and for further assessment. Awaiting reply. YVONNE Naik, RN February 14, 2023 3:08 PM Received voicemail from patients' on Mon02/14/2023 2:28 PM Transcript below: This is Chiquita Griffith. My phone number is [phone]. I'm calling for my Kvein Griffith. His date of is 1945. I'm [...] really bad or it's gonna be a alf and I don't wanna do that so [...] is very concerned. Please call her at [phone]. Raeann Vizcarra documented in this encounter [facility] 01-13-2023 Miscellaneous Notes Received voicemail 01-13-23 at 12:31 PM. My name is Chiquita Griffith. My phone number is [phone]. This is in regard to Kevin Griffith. [...] not helpful. Voicemail received January 10, 2023 [id number] My name is Chiquita Griffith. My phone number is [phone]. My 's name is Kevin Griffith. He [...] provider for review. documented in this encounter [facility] 12-12-2022 Note HNO ID: [id number] Author: Leni Escudero APRN.MOP WORKER Service: ? Author Type: Nurse Practitioner Type: Progress Notes Filed: 12/13/2022 10:48 PM Note Text: [facility] - FOLLOW UP EVALUATION Ja Cooley MD [address] [facility] [address] Dear Ja Cooley MD: I had the [...] Flowsheet Row OT/PT/Speech Visit from 10/04/2022 in [facility] Outpatient Physical Therapy OT/PT/Speech Visit from 08/25/2022 in [facility] Outpatient Physical Therapy [facility] [...] times daily. insulin (more content not included)... [facility] 12-12-2022 Instructions Leni Escudero APRN.GUADALUPE - [...] have them on file here at the [facility]. Interested in clinical research? Not currently Movement Disorders Medication Schedule: Medications 6am 12pm 5pm Bedtime Sinemet 25/100 2 2 1 1 Sertaline 50mg 1 Return in about 6 months (around 06/11/2023). If there are any concerns before your next visit, please call or you can send a message through [employer]. You can also now schedule and select appointments through [employer]. Leni Escudero APRN.GUADALUPE documented in this encounter [facility] 12-12-2022 History of Present illness Narrative [facility] - FOLLOW UP EVALUATION MD Bessie Gavin [address] [facility] [address] Dear Ja Cooley MD: I had the [...] Flowsheet Row OT/PT/Speech Visit from 10/04/2022 in [facility] OT/PT/Speech Visit from 08/25/2022 in [facility]patient Physical Therapy [facility] [...] D3 50 MCG, 2,000 UNIT, GUMMIES) fluticasone dzvkhnw-kpfumehaymai-tqonlltebm (TRELEGY ELLIPTA) 200-62.5-25 mcg powder inhaler Inhale [...] 37.42 kg/m . Movement Disorders Scales Performed: [place] Cognitive Assessment (MoCA) Visuospatial/Executive 5 Naming 2 [...] parkinsonian. Then he underwent surgical evaluation at [facility] and DaTscan done there was indicative [...] have them on file here at the [facility]. Interested in clinical research? Not currently Updated Movement Disorders Medication Schedule: Medications 6am 12pm 5pm Bedtime Sinemet 25/100 2 2 1 1 Sertaline 50mg 1 Level of service : 83550 (40-54 min). Time spent 51 ( 1:54pm-2:45pm) min on the day of service, which included preparing to see the patient, qpde-vc-ceba patient care, completing clinical documentation, obtaining and/or reviewing separately obtained history, performing a medically appropriate examination, and counseling and educating the patient/family/caregiver. Leni Escudero APRN.GUADALUPE documented in this encounter [facility] 10-10-2022 Miscellaneous Notes Thanks for the FYI. Well done! JHS Received voicemail from patient on 10/10/2022 9:09 AM Transcript below: Morning this is Kevin Griffith and my phone number is [phone]. I calling to find out if there's [...] Voicemail left directing patient to a detailed [employer] message. Requested reply via [facility] or [facility]. Provided office number. Message shared with covering provider as KA is HUGO. Mary Harrison MSN, RN October 10, 2022 2:44 PM documented in this encounter [facility] 10-04-2022 Note HNO ID: [id number] Author: Kori Acevedo, PT, DPT Service: ? [...] Minutes (timed/untimed): 45 Kori Acevedo, PT, DPT [facility] 10-04-2022 History of Present illness Narrative [...] Acevedo PT, DPT documented in this encounter [facility] 09-16-2022 Miscellaneous Notes Addended by: [...] to [facility]. documented in this encounter [facility] 09-16-2022 Miscellaneous Notes Called and left voicemail that an updated RX had been sent for the Cymbalta. Provided office number for [facility] and option to message via [employer]. YVONNE Naik, RN September 16, 2022 8:48 [...] like to speak with Stefania. CALLBACK #: [phone] OK TO LEAVE MESSAGE: ok only on this number - do not leave at home number LAST FUV: 08/04/22 with KA documented in this encounter [facility] 09-15-2022 Note HNO ID: [id number] Author: Kori Acevedo, PT, DPT Service: ? [...] Patient to be seen for Therapeutic exercise (91262);Neuromuscular re-education (75767);Manual therapy (19141);Therapeutic activities (17260);Self-shelter management (97731);Gait Training (12652);Functional training;General Conditioning;Body Mechanics Training;Patient/Family/Caregiver Education PLAN FOR [...] Minutes (timed/untimed): 45 (more content not included)... [facility] 09-02-2022 Note HNO ID: [id number] Author: Aleida Ramirez MD Service: ? Author [...] could not see the pt. REFERRAL SOURCE: [facility] Physician - Dr. Sumner CHIEF COMPLAINT: [...] Diagnosis Date Chronic obstructive pulmonary disease (COPD) ([facility]) Diabetes ([facility]) Generalized anxiety disorder H/O seasonal allergies [...] 1 tablet by mouth twice daily. fluticasone blwbkxl-imgajzfhglyw-exheppycmb (TRELEGY ELLIPTA) 200-62.5-25 mcg powder inhaler Inhale [...] for malaise, signif (more content not included)... [facility] 09-02-2022 History of Present illness Narrative [...] could not see the pt. REFERRAL SOURCE: [facility] Physician - Dr. Sumner CHIEF COMPLAINT: [...] 1 tablet by mouth twice daily. fluticasone goeuusj-gqeikhfbfall-ozmczkpynx (TRELEGY ELLIPTA) 200-62.5-25 mcg powder inhaler Inhale [...] prior psychiatrist Therapist: No prior therapist Current Senior Engineering Technician: None Last Hospitalization: Denies hospitalization. ECT: None Previous Discontinued Psychiatric Med Trials: None SUBSTANCE USE HISTORY: Nicotine: 40 py, quit 23 years ago Caffeine: Coffee, 3 cups/day Alcohol: Drank when he was younger, Marijuana: No history of use or dependence Cocaine: No history of use or dependence Opiods: No history of use or dependence SPIRITUALITY: Worship [facility]: Kevin Griffith is the oldest of 6 [...] : see directory documented in this encounter [facility] 08-25-2022 Note HNO ID: [id number] Author: Kori Acevedo, PT, DPT Service: ? [...] SPORTS THERAPY PHYSICAL THERAPY TREATMENT NOTE ASSESSMENT: Kvein Griffith tolerated the session with no issues. [...] 38 Total Treatment Time Minutes (timed/untimed): 38 oKri Acevedo, PT, DPT [facility] 08-25-2022 History of Present illness Narrative [...] Acevedo PT, DPT documented in this encounter [facility] 08-11-2022 Note HNO ID: [id number] Author: Kori Acevedo PT, DPT Service: ? [...] Planned: 4 Planned Treatment Interventions: Therapeutic exercise (86021);Neuromuscular re-education (97506);Manual therapy (89525);Therapeutic activities (24946);Self-shelter management (97548);Gait Training (35805);Functional training;General Conditioning;Body Mechanics Training;Patient/Family/Caregiver Education PLAN FOR [...] average of the (more content not included)... [facility] 08-04-2022 Note HNO ID: [id number] Author: Jaylyn Sumner MD Service: ? Author Type: Physician Type: Progress Notes Filed: 08/04/2022 5:35 PM Note Text: [facility] - FOLLOW UP EVALUATION Ja Cooley MD [address] [facility] [address] [facility] [address] I had the pleasure of seeing Mr. [...] 1 tablet by mouth twice daily. fluticasone uotqswi-bnsipcbflfaz-ybipftgghb (TRELEGY ELLIPTA) 200-62.5-25 mcg powder inhaler Inhale [...] 24 hr table (more content not included)... [facility] 08-04-2022 Instructions Jaylyn Sumner MD - [...] also now schedule and select appointments through [employer]. Jaylyn Sumner MD documented in this encounter [facility] 08-04-2022 History of Present illness Narrative [facility] - FOLLOW UP EVALUATION Ja Cooley MD [address] [facility] [address] I had the pleasure of seeing Mr. [...] 1 tablet by mouth twice daily. fluticasone udcgfbh-lxhzlziuhpdc-awkjpnvggw (TRELEGY ELLIPTA) 200-62.5-25 mcg powder inhaler Inhale [...] parkinsonian. Then he underwent surgical evaluation at [facility] and DaTscan done there was indicative [...] gait he reports both lightheadedness and imbalance. [place] symptomatic today upon standing but orthostatics were [...] or around: 11/03/22 Level of service : 49775 (40-54 min). Time spent 45 min on the day of service, which included preparing to see the patient, ybpb-es-xptu patient care, completing clinical documentation, performing a [...] Jaylyn Sumner MD documented in this encounter [facility] 07-29-2022 Note HNO ID: [id number] Author: Kori Acevedo PT, DPT Service: ? Author Type: Physical Therapist Type: Progress Notes Filed: 07/29/2022 4:54 PM Note Text: 07/29/2022 [facility]TS THERAPY PHYSICAL THERAPY DISCONTINUANCE [...] additional follow-up appointments. Kori Acevedo PT, DPT [facility] 07-21-2022 Miscellaneous Notes Received voicemail from patient's on Rosalia 07/21/2022 10:52 AM Transcript below: Kaila my name is Chiquita Griffith. My 's name is Kevin Griffith. He is a patient of Dr. Gordillo. My phone number is [phone]. I'm calling to speak to somebody regarding [...] Updates shared with MD CAR & SS, CDL TRUCK DRIVER. If any guidance is suggested, RN will contact with feedback. YVONNE Naik, RN July 21, 2022 12:42 PM documented in this encounter [facility] 05-18-2022 Miscellaneous Notes Done Request from patient requesting refill. Please E-Scribe to [facility]. Last OV: 03/29/22 with CAR Future OV: 08/16/22 with CAR Pending Prescriptions Disp Refills CARBIDOPA 25 MG-LEVODOPA 100 MG TABLET 540 tablet 3 Sig: Take 2 tablets by mouth three times daily. REJI: No Blossom S documented in this encounter [facility] 03-29-2022 Note HNO ID: [id number] Author: Maine Medel, PT, DPT Service: ? [...] SLS >10 seconds B Become involved with [facility] in home exercise program. Patient will demonstrate increase in B hip strength strength to 5/5 during manual muscle testing in order to improve function for balance Increase strength in ankle to 5/5 for balance. Be able to turn in a mentasta in 8 steps. Decrease tug to <10 seconds without AD for improved richard and step length Patient Goals: to learn about PD, to reduce falls Planned Interventions, Frequency, and Duration: Current Frequency: 1x/week Duration: 4 weeks (starting in one month) Total Number of Visits Planned: 4 Planned Treatment Interventions: Therapeutic exercise (15800);Neuromuscular re-education (65143);Manual therapy (23922);Therapeutic activities (03924);Self-shelter management (86345);Gait Training (23652);Functional training;General Conditioning;Body Mechanics Training PLAN FOR NEXT [...] double vision Visi (more content not included)... [facility] [facility] Note HNO ID: [id number] Author: Joann Romano OTR/L Service: ? Author Type: Occupational Therapist Type: Progress Notes Filed: 03/29/2022 5:40 PM Note Text: Episode Visit Count: 2 Therapist That Will Oversee The Plan Of Care: Maria Isabel Romano Start of Care Date: 03/29/22 Onset Date: 06/14/21 Plan of Care Certification Date: 03/29/22 Next Certification Due Date: 03/29/22 Patient Identified by Name and Date of : Yes [facility] OCCUPATIONAL THERAPY EVALUATION [...] WITH LEVEL OF FUNCTION: Hand Strength R Slackman Position 2 (lbs): 71 lbs L Slackman Position 2 (lbs): 60 lbs R Lateral [...] States/Identifies;Return Demonstration TREATMENT: OT Treatment Interventions : Self-Long-Term Management Evaluation Self-Long-Term Management: 1: Pt and spouse educated in role of OT 2: Discussed importance of hydrating with medication and avoiding proteins with meds (more content not included)... [facility] 03-29-2022 Note HNO ID: [id number] Author: Sakina Zafar CCC-RESOURCE FORESTER Service: ? Author Type: Speech Language Pathologist Type: Progress Notes Filed: 03/29/2022 3:59 PM Note Text: Episode Visit Count: 1 Therapist That Will Oversee The Plan Of Care: Andrade Start of Care Date: 03/29/22 Onset Date: 11/20/20 Plan of Care Certification Date: 03/29/22 Patient Identified by Name and Date of : Yes [facility] SPEECH and SWALLOW [...] position 20-30 minutes following all oral intake RESOURCE FORESTER Recommendations: Swallowing Precautions;Discontinue Speech Therapy Results and [...] MBS (pt reports had MBS done at [place] last year, which pt was told 'he did fine' and no recommendations for follow up ST or diet modifications made) Clinical Swallow [place] Swallow Protocol: Fail Fail: Coughing episodes (x1 [...] clear/cough after water (more content not included)... [facility] 03-29-2022 History of Present illness Narrative [...] SLS >10 seconds B Become involved with [facility] in home exercise program. Patient will demonstrate increase in B hip strength strength to 5/5 during manual muscle testing in order to improve function for balance Increase strength in ankle to 5/5 for balance. Be able to turn in a mentasta in 8 steps. Decrease tug to <10 seconds without AD for improved richard and step length Patient Goals: to learn about PD, to reduce falls Planned Interventions, Frequency, and Duration: Current Frequency: 1x/week Duration: 4 weeks (starting in one month) Total Number of Visits Planned: 4 Planned Treatment Interventions: Therapeutic exercise (60886);Neuromuscular re-education (21266);Manual therapy (49384);Therapeutic activities (48749);Self-shelter management (94413);Gait Training (71598);Functional training;General Conditioning;Body Mechanics Training PLAN FOR NEXT [...] Medel PT, DPT documented in this encounter [facility] 03-29-2022 History of Present illness Narrative Episode Visit Count: 1 Therapist That Will Oversee The Plan Of Care: Andrade Start of Care Date: 03/29/22 Onset Date: 11/20/20 Plan of Care Certification Date: 03/29/22 Patient Identified by Name and Date of : Yes [facility] SPEECH and SWALLOW [...] position 20-30 minutes following all oral intake RESOURCE FORESTER Recommendations: Swallowing Precautions;Discontinue Speech Therapy Results and [...] MBS (pt reports had MBS done at [place] last year, which pt was told 'he [...] Eval Sound Production with Language Expression and Plating Inspector (83049) Swallow / Dysphagia (50630): Skilled Intervention: Educated and advised patient / caregiver on texture and liquid consistency recommendations., Instructed patient / caregiver on recommended compensatory strategies to maximize safety with oral intake while maintaining nutrition, hydration and medication stability. Speech/Language Therapy (80526): Skilled Intervention: Educated and instructed patient on [...] Eval Sound Production with Language Expression and Plating Inspector (64511), Clinical Swallow Evaluation (87060), Speech Treatment (58920) and Dysphagia Treatment (23529) Total time / Length of visit: 60 minutes JOSE Hopper documented in this encounter [facility] 03-29-2022 Note HNO ID: [id number] Author: Jaylyn Sumner MD Service: ? Author Type: Physician Type: Progress Notes Filed: 03/29/2022 7:35 PM Note Text: [facility] - Multidisciplinary Clinic Jaylyn Sumner [address] [facility] [address] Ja Cooley MD [address] [facility] [address] I had the pleasure of seeing Mr. [...] since last visit underwent surgical evaluation at [facility] and DaTscan done there indicative of [...] during this visit (more content not included)... [facility] 03-29-2022 Instructions Jaylyn Sumner MD - [...] or you can send a message through [employer]. You can also now schedule and select appointments through [employer]. Jaylyn Sumner MD documented in this encounter [facility] 03-29-2022 History of Present illness Narrative [facility] - Multidisciplinary Clinic Jaylyn Sumner [address] [facility] [address] [facility] [address] Ja Cooley MD [address] [facility] [address] I had the pleasure of seeing Mr. [...] since last visit underwent surgical evaluation at [facility] and DaTscan done there indicative of [...] in 1 week Level of service : 37858 (40-54 min). Time spent 53 min on the day of service, which included preparing to see the patient, [id number] patient care, completing clinical documentation, counseling and [...] Jaylyn Sumner MD documented in this encounter [facility] 03-23-2022 Miscellaneous Notes I called patient to get him pre-roomed for his upcoming appointment. I had to leave a voicemail for a returned call. If patient calls back please transfer call to myself or a clinical staff member to complete this process. Thanks! Bryanna Haas MA documented in this encounter [facility] 03-17-2022 Note HNO ID: [id number] Author: Jaylyn Sumner MD Service: ? Author Type: Physician Type: Progress Notes Filed: 03/18/2022 4:12 PM Note Text: [facility] - FOLLOW UP EVALUATION No referring provider defined for this encounter. MD Bessie Gavin [address] [facility] [address] I had the pleasure of seeing Mr. [...] to be helpful Interval History Seen at [facility] for surgical evaluation. SDR was too low [...] three times daily. (more content not included)... [facility] 03-17-2022 Instructions Jaylyn Sumner MD - [...] or you can send a message through [employer]. You can also now schedule and select appointments through [employer]. Jaylyn Sumner MD ======== [facility] Pre-Visit Instructions Welcome to the Parkinson s Multi-Disciplinary [facility]! These visits will consist of four separate appointments provided by Neurology, Speech Therapy, Physical Therapy and Occupational Therapy. The appointments will take place at the [facility] and all occur on the same day. [...] appointment. This call will serve as a tnd-jyiyi-hl and be used to review your medications, [...] and staff alike. documented in this encounter [facility] 03-17-2022 History of Present illness Narrative [facility] - FOLLOW UP EVALUATION No referring provider defined for this encounter. Ja Cooley MD [address] [facility] [address] [facility] [address] I had the pleasure of seeing Mr. [...] to be helpful Interval History Seen at [facility] for surgical evaluation. SDR was too low [...] since last visit underwent surgical evaluation at [facility] and DaTscan done there indicative of [...] or around: 07/17/22 Level of service : 78323 (40-54 min). Time spent 54 min on the day of service, which included preparing to see the patient, [id number] patient care, completing clinical documentation, obtaining and/or [...] Jaylyn Sumner MD documented in this encounter [facility] 02-10-2022 History of Present illness Narrative Images from the original note were not included. SDR for Lisset_Stephanie came in at 0.34 with 973 available elements. Other than the low SDR no significant CT deviations noted. documented in this encounter [facility] 12-22-2021 History of Present illness Narrative Video Visit [facility], NEUROSCIENCE [facility] [facility] [address] [facility] [address] Via Real-time Synchronous Audiovisual [facility] 12/21/2021 Barb Amador MD Provider Location: [facility] Patient Location Softball Winder: None Patient Location: Patient's Home Patient: Kevin [...] that there are some limitations compared to [id number] evaluations. We elected to proceed. Subjective Patient [...] Barb Amador MD documented in this encounter [facility] 12-21-2021 Instructions Barb Amador MD - 12/21/2021 1:33 PM EST Parkinson's Disease Continue the medication Use seroquel at night If you decide that you want to switch to Dr Royal let me know documented in this encounter [facility] 11-09-2021 Miscellaneous Notes Spoke to Bryanna (Pharmacist) for clarification of patient's prescription carbidopa-levodopa (SINEMET) 25-100 mg per tablet [facility] will disp 540 (90 day supply) will 3 refills Please sign script that was called in documented in this encounter [facility] 11-05-2021 History of Present illness Narrative As [...] on at 1230pm. documented in this encounter [facility] 11-05-2021 History of Present illness Narrative I called on 11/05/21 to discuss the results of the meeting and to discuss questions documented in this encounter [facility] 11-05-2021 History of Present illness Narrative As [...] Amador will call. documented in this encounter [facility] 11-03-2021 History of Present illness Narrative Images from the original note were not included. SDR - 0.34 with 973 available elements. Other than the low SDR no significant CT deviations noted. documented in this encounter [facility] 10-28-2021 History of Present illness Narrative Images from the original note were not included. [facility] Physical Therapy Evaluation Today's Date [...] he wants to follow-up here or in [place] as it is significantly closer to home. [...] medications for tremor - has tried one. [place] drunk all of th time. Freezing of [...] mobility Social Support: Patient lives with others. Quaker, social, or cultural considerations to be made [...] in the last 12 months: Yes (concussion) Quaker, social, or cultural considerations to be made [...] at this time were answered. CPT Code 44044 Low 89758 Moderate 91701 High History 0 1-2 3+ Comorbidities: chronic [...] Clinical Impression: . Kevin Griffith presents to [facility] outpatient neurological rehab services for PT assessment [...] above number. Sarah Mckenzie, PT STATE LICENSE, PT.[id number] documented in this encounter [facility] 10-05-2021 Instructions Barb Amador MD - 10/05/2021 11:[address] Head Physical therapy DATSCAN-the yes/no Parkinson's disease test Jim Batreskarson is the navigator Dr. Barb Amador MD Neurology Office Information Jaspreet Qureshi MA Office# documented in this encounter [facility] 10-05-2021 History of Present illness Narrative Subjective [...] he wants to follow-up here or in [place] as it is significantly closer to home. [...] Without Contrast; Future - Ambulatory Ref to [facility] (PT/OT/ST); Future Patient Instructions Tremor CT Head Physical therapy DATSCAN-the yes/no Parkinson's disease test Jim Bradford is the navigator Dr. Barb Amador MD Neurology Office Information Jaspreet Qureshi MA Office# Dr. Barb Amador MD Neurology Office Information Jaspreet Qureshi MA Office# Barb Amador MD documented in this encounter [facility] 05-19-2021 History of Present illness Narrative Discharge [...] with simple mask at 10 LPM oxygen. generation technician called. Patient brought to OR for implantation of spinal stimulator today. Patient with history of cardiac arrest during last lumbar surgery with general anesthesia. During induction patient's blood pressure dropped to 60s systolic and 40s diastolic. In light of patient's history, the decision was made to cancel the case. Patient's informed. Mame Machado PA-C documented in this encounter [employer] Phone: 05-05-2021 Hospital Discharge instructions Kori Casillas RN - 05/05/2021 Shower with the Hibiclens product given to you in Pre-Admission Testing. Follow the instructions and wear clean clothes to bed and clean linen on the bed the night before surgery. Follow the instructions and shower the morning of surgery and wear clean, comfortable clothes to the hospital. Please bring your [employer] Surgical Information folder on the day of [...] call your surgeon. You may use the batch roller operator parking located at the main entrance on [address] [facility] and take the H elevator to the first floor for same day surgery. Take a left after exiting the elevator and check in at the desk. The following attachments cannot be sent through Care Everywhere.Laminotomy and Laminectomy: General Info (Yoruba)documented in this encounter [facility] Work Phone: documented in this encounter [facility] Work Phone: Evaluation note* Diagnosis Abnormal electrocardiogram (ECG) (EKG) Shortness of breath Pre-op testing Preoperative examination, unspecified Abnormal EKG Nonspecific abnormal electrocardiogram (ECG) (EKG) documented in this encounter [facility] Work Phone: Evaluation note* Diagnosis Tremor, essential- Primary Essential and other specified forms of tremor documented in this encounter [facility] note* Diagnosis Tremor- Primary Abnormal involuntary movements documented in this encounter [facility] note* Diagnosis Tremor Abnormal involuntary movements Impaired mobility and activities of daily living Impairment of balance documented in this encounter [facility] note* Diagnosis Parkinson's disease (HCC)- Primary Paralysis agitans documented in this encounter [facility] note* Diagnosis Parkinsonism, unspecified Parkinsonism type (HCC)- Primary Essential tremor Essential and other specified forms of tremor Dysphagia, unspecified type Gait instability Abnormality of gait documented in this encounter [facility] note* Diagnosis Parkinsonism, unspecified Parkinsonism type (HCC)- Primary Dysphagia, oropharyngeal phase Dysarthria documented in this encounter [facility] note* Diagnosis Parkinson disease (HCC)- Primary Paralysis agitans documented in this encounter [facility] note* Diagnosis Gait instability- Primary Abnormality of gait Parkinsonism, unspecified Parkinsonism type (HCC) Dysphasia Other speech disturbance Oropharyngeal dysphagia Dysphagia, oropharyngeal phase Decreased activities of daily living (ADL) documented in this encounter [facility] note* Diagnosis Parkinsonism, unspecified Parkinsonism type (HCC)- Primary Depression, unspecified depression type Anxiety Anxiety state, unspecified Orthostatic lightheadedness Dizziness and giddiness Dysphagia, unspecified type documented in this encounter [facility] note* Diagnosis Parkinsonism, unspecified Parkinsonism type (HCC)- Primary Gait instability Abnormality of gait Leg weakness, bilateral Other musculoskeletal symptoms referable to limbs Imbalance Abnormality of gait documented in this encounter [facility] note* Diagnosis MELISSA (generalized anxiety disorder)- Primary Generalized anxiety disorder Depression, unspecified depression type Parkinsonism, unspecified Parkinsonism type (HCC) documented in this encounter [facility] note* Diagnosis Parkinsonism, unspecified Parkinsonism type (HCC)- Primary Gait instability Abnormality of gait Leg weakness, bilateral Other musculoskeletal symptoms referable to limbs Imbalance Abnormality of gait documented in this encounter [facility] note* Diagnosis Parkinsonism, unspecified Parkinsonism type (HCC)- Primary Orthostatic hypotension Anxiety Anxiety state, unspecified documented in this encounter [facility] Reason for Referral Status Reason Specialty Diagnoses / Procedures Re ferred By Contact Referred To Contact Open Cardiology Diagnoses Pre-op testing Abnormal EKG Shortness of breath Procedures ECHO Pharmacological Stress Test Raeann Holland, STRIP CATCHER - MOP WORKER [facility] [address] [place] [address] Specialty Diagnoses / Procedures Referred By Contac t Referred To Contact Neurology Diagnoses Tremor, essential JolliffPatricia MD [address] [facility] [address] [place] [address] Barb Amador MD [address] [place] [address] [place] [id number] Referral ID Status Reason Start Date Expiration Date V isits Requested Visits Authorized [id number] Pending Review 09/27/2021 09/27/2022 1 1 Specialty Diagnoses / Procedures Referred By Contac t Referred To Contact Rehabilitation Diagnoses Tremor Barb Amador MD [address] [place] [address] [address] [place] [address] Referral ID Status Reason Start Date Expiration Date V isits Requested Visits Authorized [id number] Authorized 10/05/2021 10/05/2022 1 1 Specialty Diagnoses / Procedures Referred By Contac t Referred To Contact Radiology Diagnoses Tremor Procedures CT Head Or Brain Without Contrast Barb Amador MD [address] [place] [address] [place] [address] Referral ID Status Reason Start Date Expiration Date V isits Requested Visits Authorized [id number] New Request 10/05/2021 10/05/2022 1 1 Specialty Diagnoses / Procedures Referred By Contac t Referred To Contact Radiology Diagnoses Tremor Procedures NM Brain Datscan S[place] [address] [place] [address] [place] [address] Nuclear Medicine [address] [place] [address] Referral ID Status Reason Start Date Expiration Date V isits Requested Visits Authorized [id number] Pending Review 10/05/2021 10/05/2022 4 4 Specialty Diagnoses / Procedures Referred By Contac t Referred To Contact Diagnoses Parkinsonism, unspecified Parkinsonism type (HCC) Procedures PROVIDER ORDERED FOLLOW UP OFFICE/OUTPATIENT [facility] 60-74 MINUTES Jaylyn Sumner MD [address] [address] Referral ID Status Reason Start Date Expiration Date Visits Requested Visits Authorized [id number] Authorized PCP Requested Referral 03/17/2022 06/15/2022 1 1 Specialty Diagnoses / Procedures Referred By Contac t Referred To Contact Neurology / NEUROLOGICAL TENRIISM Diagnoses Parkinsonism, unspecified Parkinsonism type (HCC) Procedures CONSULT TO [facility] OFFICE/OUTPATIENT [facility] 60-74 MINUTES Jaylyn Sumner MD [address] [address] [facility] [address] [place] [address] Referral ID Status Reason Start Date Expiration Date Visits Requested Visits Authorized [id number] Authorized PCP Requested Referral 03/17/2022 03/17/2023 1 1 Specialty Diagnoses / Procedures Referred By Contac t Referred To Contact [facility] Diagnoses Parkinsonism, unspecified Parkinsonism type (HCC) Gait instability Procedures CONSULT TO PHYSICAL THERAPY PHYSICAL THERAPY EVALUATION HIGH COMPLEX 45 MINS Jaylyn Sumner MD [address] [address] [facility] [address] [address] Referral ID Status Reason Start Date Expiration Date Visits Requested Visits Authorized [id number] Authorized PCP Requested Referral Auto-Generate d Referral 03/29/2022 03/29/2023 99 99 Specialty Diagnoses / Procedures Referred By Contac t Referred To Contact [facility] Diagnoses Parkinsonism, unspecified Parkinsonism type (HCC) Gait instability Decreased activities of daily living (ADL) Procedures CONSULT TO PHYSICIAN PRACTICE ADMINISTRATOR OCCUPATIONAL THERAPY EVAL HIGH COMPLEX 60 MINS Jaylyn Sumner MD [address] [address] [facility] [address] [address] Referral ID Status Reason Start Date Expiration Date Visits Requested Visits Authorized [id number] Authorized PCP Requested Referral Auto-Generate d Referral 03/29/2022 03/29/2023 99 99 Specialty Diagnoses / Procedures Referred By Contac t Referred To Contact Diagnoses Parkinsonism, unspecified Parkinsonism type (HCC) Oropharyngeal dysphagia Procedures CONSULT TO SPEECH THERAPY Jaylyn Sumner MD [address] [place] [address] Referral ID Status Reason Start Date Expiration Date Visits Requested Visits Authorized [id number] Authorized PCP Requested Referral 03/29/2022 06/27/2022 3 3 Referral ID Status Reason Start Date Expiration Date Visits Requested Visits Authorized [id number] Authorized PCP Requested Referral 08/04/2023 1 1 Specialty Diagnoses / Procedures Referred By Contac t Referred To Contact [facility] Diagnoses Parkinsonism, unspecified Parkinsonism type (HCC) Procedures CONSULT TO PHYSICAL THERAPY PHYSICAL THERAPY EVALUATION HIGH COMPLEX 45 MINS Jaylyn Sumner MD [address] [id number] [facility] [address] [address] Referral ID Status Reason Start Date Expiration Date Visits Requested Visits Authorized [id number] Authorized PCP Requested Referral Auto-Generate d Referral 08/04/2022 08/04/2023 99 99 Specialty Diagnoses / Procedures Referred By Contac t Referred To Contact Diagnoses Parkinsonism, unspecified Parkinsonism type (HCC) Depression, unspecified depression type Procedures CONSULT TO PSYCHIATRY OFFICE/OUTPATIENT NEW HIGH MDM 60-74 MINUTES Jaylyn Sumner MD [address] [id number] Referral ID Status Reason Start Date Expiration Date Visits Requested Visits Authorized [id number] Pending Review PCP Requested Referral 08/04/2022 08/04/2023 1 1 Specialty Diagnoses / Procedures Referred By Contac t Referred To Contact Diagnoses Depression, unspecified depression type Procedures PROVIDER ORDERED FOLLOW UP OFFICE/OUTPATIENT [facility] 60-[place] [address] [place] [address] Referral ID Status Reason Start Date Expiration Date Visits Requested Visits Authorized [id number] Authorized PCP Requested Referral 11/28/2022 09/02/2023 1 1 Specialty Diagnoses / Procedures Referred By Contac t Referred To Contact [facility] Diagnoses Parkinsonism, unspecified Parkinsonism type (HCC) Procedures CONSULT TO PHYSICIAN PRACTICE ADMINISTRATOR OCCUPATIONAL THERAPY EVAL HIGH COMPLEX 60 MINS Leni Escudero, STRIP CATCHER.MOP WORKER [address] [place] [address] [facility] [address] [address] Referral ID Status Reason Start Date Expiration Date Visits Requested Visits Authorized [id number] Authorized PCP Requested Referral Auto-Generate d Referral 12/12/2022 12/12/2023 99 99 Specialty Diagnoses / Procedures Referred By Contac t Referred To Contact [facility] Diagnoses Parkinsonism, unspecified Parkinsonism type (HCC) Procedures CONSULT TO PHYSICAL THERAPY PHYSICAL THERAPY EVALUATION HIGH COMPLEX 45 MINS Leni Escudero, STRIP CATCHER.MOP WORKER [address] [place] [address] [facility] [address] [address] Referral ID Status Reason Start Date Expiration Date Visits Requested Visits Authorized [id number] Authorized PCP Requested Referral Auto-Generate d Referral 12/12/2022 12/12/2023 99 99 Advance Directives No Advanced Directives Records FoundDocuments on File Type Date Recorded Patient Bridge Gang Worker Expl anation ACP-Advance Directive ACP-Power of Parts Counter Associate Latest Code Status on File Code Status Date Activated Date Inactivated Comments Full Code 04/17/2018 6:13 AM 04/17/2018 1:26 PM Documents on File Type Date Recorded Patient Bridge Gang Worker Expl anation ACP-Advance Directive ACP-Power of Parts Counter Associate Latest Code Status on File Code Status Date Activated Date Inactivated Comments Full Code 05/19/2021 6:48 AM Full Code 04/17/2018 6:13 AM 04/17/2018 1:26 PM Documents on File Type Date Recorded Patient Bridge Gang Worker Expl anation Advance Directives and Living Will Documents on File Type Date Recorded Patient Bridge Gang Worker Expl anation Advance Directives and Living Will Documents on File Type Date Recorded Patient Bridge Gang Worker Expl anation Advance Directives and Livin g [...] or prosecute any alcohol or drug abuse patient.[facility] the event this information is protected by the Federal Confidentiality of Alcohol and Drug Abuse Patient Records regulations: The Federal rules restrict any use of the information to criminally investigate or prosecute any alcohol or drug abuse patient.[facility] CenterIn the event this information is protected by the Federal Confidentiality of Alcohol and Drug Abuse Patient Records regulations: The Federal rules restrict any use of the information to criminally investigate or prosecute any alcohol or drug abuse patient.[facility] CenterIn the event this information is protected by the Federal Confidentiality of Alcohol and Drug Abuse Patient Records regulations: The Federal rules restrict any use of the information to criminally investigate or prosecute any alcohol or drug abuse patient.[facility] CenterIn the event this information is protected by the Federal Confidentiality of Alcohol and Drug Abuse Patient Records regulations: The Federal rules restrict any use of the information to criminally investigate or prosecute any alcohol or drug abuse patient.[facility] Center[facility] the event this information is protected by the Federal Confidentiality of Alcohol and Drug Abuse Patient Records regulations: The Federal rules restrict any use of the information to criminally investigate or prosecute any alcohol or drug abuse patient.[facility] CenterIn the event this information is protected by the Federal Confidentiality of Alcohol and Drug Abuse Patient Records regulations: The Federal rules restrict any use of the information to criminally investigate or prosecute any alcohol or drug abuse patient.[facility] CenterIn the event this information is protected by the Federal Confidentiality of Alcohol and Drug Abuse Patient Records regulations: The Federal rules restrict any use of the information to criminally investigate or prosecute any alcohol or drug abuse patient.[facility] CenterIn the event this information is protected by the Federal Confidentiality of Alcohol and Drug Abuse Patient Records regulations: The Federal rules restrict any use of the information to criminally investigate or prosecute any alcohol or drug abuse patient.[facility] CenterIn the event this information is protected by the Federal Confidentiality of Alcohol and Drug Abuse Patient Records regulations: The Federal rules restrict any use of the information to criminally investigate or prosecute any alcohol or drug abuse patient.[facility] CenterIn the event this information is protected by the Federal Confidentiality of Alcohol and Drug Abuse Patient Records regulations: The Federal rules restrict any use of the information to criminally investigate or prosecute any alcohol or drug abuse patient.[facility] CenterIn the event this information is protected by the Federal Confidentiality of Alcohol and Drug Abuse Patient Records regulations: The Federal rules restrict any use of the information to criminally investigate or prosecute any alcohol or drug abuse patient.[facility] CenterIn the event this information is protected by the Federal Confidentiality of Alcohol and Drug Abuse Patient Records regulations: The Federal rules restrict any use of the information to criminally investigate or prosecute any alcohol or drug abuse patient.[facility] CenterIn the event this information is protected by the Federal Confidentiality of Alcohol and Drug Abuse Patient Records regulations: The Federal rules restrict any use of the information to criminally investigate or prosecute any alcohol or drug abuse patient.[facility] CenterIn the event this information is protected by the Federal Confidentiality of Alcohol and Drug Abuse Patient Records regulations: The Federal rules restrict any use of the information to criminally investigate or prosecute any alcohol or drug abuse patient.[facility] CenterIn the event this information is protected by the Federal Confidentiality of Alcohol and Drug Abuse Patient Records regulations: The Federal rules restrict any use of the information to criminally investigate or prosecute any alcohol or drug abuse patient.[facility] CenterIn the event this information is protected by the Federal Confidentiality of Alcohol and Drug Abuse Patient Records regulations: The Federal rules restrict any use of the information to criminally investigate or prosecute any alcohol or drug abuse patient.[facility] CenterIn the event this information is protected by the Federal Confidentiality of Alcohol and Drug Abuse Patient Records regulations: The Federal rules restrict any use of the information to criminally investigate or prosecute any alcohol or drug abuse patient.[facility] CenterIn the event this information is protected by the Federal Confidentiality of Alcohol and Drug Abuse Patient Records regulations: The Federal rules restrict any use of the information to criminally investigate or prosecute any alcohol or drug abuse patient.[facility] CenterIn the event this information is protected by the Federal Confidentiality of Alcohol and Drug Abuse Patient Records regulations: The Federal rules restrict any use of the information to criminally investigate or prosecute any alcohol or drug abuse patient.[facility] Reason for Visit (unrecogniz ed section and content) Specialty Diagnoses / Procedures Referred By Michel t Referred To Contact Diagnoses Parkinsonism, unspecified Parkinsonism type (HCC) Procedures PROVIDER ORDERED FOLLOW UP OFFICE/OUTPATIENT [facility] 60-74 MINUTES Jaylyn Sumner MD [address] [address] Referral ID Status Reason Start Date Expiration Date V isits Requested Visits Authorized [id number] Closed PCP Requested Referral 11/03/2022 08/04/2023 1 1 Status Reason Specialty Diagnoses / Procedures Re ferred By Contact Referred To Contact Open Cardiology Diagnoses Pre-op testing Abnormal EKG Shortness of breath Procedures ECHO Pharmacological Stress Test Raeann Holland, STRIP CATCHER - MOP WORKER 1 [facility] [address] [place] [address] Reason Comments Consult Ref by: PATRICIA MCGOWAN 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,essential ([facility]IFU interest - saw us on the website), Tremors Dx; ET approx 1 year Specialty Diagnoses / Procedures Referred By Contac t Referred To Contact Neurology Diagnoses Tremor, essential Juan M Patricia Ramon MD [address] [facility] [address] [place] [address] Barb Amador MD [address] [facility] [address] [place] [address] Referral ID Status Reason Start Date Expiration Date Visits Re quested Visits Authorized [id number] Closed 09/27/2021 09/27/2022 1 1 Reason Comments Physical Therapy Neuro Specialty Diagnoses / Procedures Referred By Contac t Referred To Contact Rehabilitation Diagnoses Tremor Barb Amador MD [facility] [address] [place] [address] [facility] [address] [place] [address] Referral ID Status Reason Start Date Expiration Date V isits Requested Visits Authorized [id number] Authorized 10/05/2021 10/05/2022 1 199 Reason Onset Date Comments Medication Refill 11/05/2021 Reason Onset Date Comments Medication Refill 11/09/2021 Reason Comments Follow Up Parkinson's Reason Comments Upcoming Appointment Pre-rooming phone c all Reason Comments Speech Evaluation Specialty Diagnoses / Procedures Referred By Contac t Referred To Contact Speech-Language Pathologist / SPEECH THERAPY Diagnoses PD Clinic Procedures NEW [facility] PD [facility] Jaylyn Sumner MD [address] [address] Amaya Deleon, [facility] [address] [place] [address] Referral ID Status Reason Start Date Expiration Date V isits Requested Visits Authorized [id number] Authorized 03/29/2022 06/27/2022 99 99 Reason Comments PT Eval Patient Education Specialty Diagnoses / Procedures Referred By Contac t Referred To Contact Physical Therapy / PHYSICAL THERAPY Diagnoses PD Clinic Procedures NEW [facility] Jaylyn Sumner MD [address] [address] Maine Medel, PT, DPT [address] [place] [address] Referral ID Status Reason Start Date Expiration Date V isits Requested Visits Authorized [id number] Authorized 03/29/2022 06/27/2022 99 99 Specialty Diagnoses / Procedures Referred By Contac t Referred To Contact Neurology / NEUROLOGICAL TENRIISM Diagnoses Parkinsonism, unspecified Parkinsonism type (HCC) Procedures CONSULT TO [facility]ICE/OUTPATIENT [facility] MDM 60-74 MINUTES Jaylyn Sumner MD [address] [address] [facility] [address] [place] [address] Referral ID Status Reason Start Date Expiration Date V isits Requested Visits Authorized [id number] Closed PCP Requested Referral 03/17/2022 03/17/2023 1 1 Reason Onset Date Comments Refill Request 05/18/2022 Reason Comments Appointment Earlier appointment request d/t worsening symptoms Reason Comments Follow Up Referral ID Status Reason Start Date Expiration Date V isits Requested Visits Authorized [id number] Closed PCP Requested Referral 03/17/2022 06/15/2022 1 1 Reason Comments Physical Therapy Specialty Diagnoses / Procedures Referred By Contac t Referred To Contact [facility] Diagnoses Parkinsonism, unspecified Parkinsonism type (HCC) Procedures CONSULT TO PHYSICAL THERAPY PHYSICAL THERAPY EVALUATION [facility] COMPLEX 45 MINS Jaylyn Sumner MD [address] [address] [facility] [address] [address] Referral ID Status Reason Start Date Expiration Date Visits Requested Visits Authorized [id number] Authorized PCP Requested Referral Auto-Generate d Referral 08/04/2022 08/04/2023 99 99 Reason Comments New Patient Specialty Diagnoses / Procedures Referred By Contac t Referred To Contact Diagnoses Parkinsonism, unspecified Parkinsonism type (HCC) Depression, unspecified depression type Procedures CONSULT TO PSYCHIATRY OFFICE/OUTPATIENT [facility] 60-74 MINUTES Jaylyn Sumner MD [address] [address] Referral ID Status Reason Start Date Expiration Date Visits Requested Visits Authorized [id number] Pending Review PCP Requested Referral 08/04/2022 08/04/2023 [...] DATE CREATED AUTHOR AUTHOR'S ORGANIZ ATION 05/20/2021 [facility] DATE CREATED AUTHOR AUTHOR'S ORGANIZ ATION 12/22/2021 [facility] DATE CREATED AUTHOR AUTHOR'S ORGANIZ ATION 02/18/2023 [facility] DATE CREATED AUTHOR AUTHOR'S ORGANIZ ATION 02/19/2023 [facility] Scheduled Active and Recently Administ ered [...] Care Teams (unrecognized sec tion and content) Home Extension Agent Relationship Specialty Start Date End Date Patricia Mcgowan MD [address] [facility] [address] [place], [place] [address] PCP - General Family Medicine 10/28/21 Home Extension Agent Relationship Specialty Start Date End Date Patricia Mcgowan MD [address] [facility] [address] [place], [place] [address] PCP - General Family Medicine 10/28/21 Home Extension Agent Relationship Specialty Start Date End Date Patricia Mcgowan MD [address] [facility] [address] [place], [place] [address] PCP - General Family Medicine 10/28/21 Home Extension Agent Relationship Specialty Start Date End Date Patricia Mcgowan MD [address] [facility] [address] [place], [place] [address] PCP - General Family Medicine 10/28/21 Home Extension Agent Relationship Specialty Start Date End Date Patricia Mcgowan MD [address] [facility] [address] [place] [address] PCP - General Family Medicine 10/28/21 Home Extension Agent Relationship Specialty Start Date End Date Patricia Mcgowan MD [address] [place] [address] PCP - General Family Medicine 10/28/21 Home Extension Agent Relationship Specialty Start Date End Date Ja Cooley [address] [place] [address] PCP - General Family Practice 03/17/22 Home Extension Agent Relationship Specialty Start Date End Date Ja Cooley [address] [place] [address] PCP - General Family Practice 03/17/22 Home Extension Agent Relationship Specialty Start Date End Date Ja Cooley [address] [place] [address] PCP - General Family Practice 03/17/22 Home Extension Agent Relationship Specialty Start Date End Date Ja Cooley [address] [place] [address] PCP - General Family Practice 03/17/22 Home Extension Agent Relationship Specialty Start Date End Date Ja Cooley [address] [place] [address] PCP - General Family Practice 03/17/22 Home Extension Agent Relationship Specialty Start Date End Date Ja Cooley [address] [place] [address] PCP - General Family Practice 03/17/22 Home Extension Agent Relationship Specialty Start Date End Date Ja Cooley [address] [place] [address] PCP - General Family Practice 03/17/22 Home Extension Agent Relationship Specialty Start Date End Date Ja Cooley [address] [place] [address] PCP - General Family Practice 03/17/22 Home Extension Agent Relationship Specialty Start Date End Date Rejipriti Ja Ravindererma [address] [facility] [address] [place] [address] PCP - General Family Practice 03/17/22 Home Extension Agent Relationship Specialty Start Date End Date Ja Cooley [address] [facility] [address] [place] [address] PCP - General Family Medicine 03/17/22 Home Extension Agent Relationship Specialty Start Date End Date Ja Cooley [address] [facility] [address] [place] [address] PCP - General Family Medicine 03/17/22 Home Extension Agent Relationship Specialty Start Date End Date Ja Cooley [address] [facility] [address] [place] [address] PCP - General Family Medicine 03/17/22 Erika May, STRIP CATCHER.MOP WORKER [address] [place] [address] Specialty Varnish Remover Neurology 09/07/22 Home Extension Agent Relationship Specialty Start Date End Date Ja Cooley [address] [facility] [address] [place] [address] PCP - General Family Medicine 03/17/22 Erika May, STRIP CATCHER.MOP WORKER [address] [place] [address] Specialty Varnish Remover Neurology 09/07/22 Home Extension Agent Relationship Specialty Start Date End Date Ja Cooley [address] [facility] [address] [place] [address] PCP - General Family Medicine 03/17/22 Erika May, STRIP CATCHER.MOP WORKER [address] [facility] [place] [address] Specialty Varnish Remover Neurology 09/07/22 Home Extension Agent Relationship Specialty Start Date End Date Ja Cooley [address] [facility] [address] [place] [address] PCP - General Family Medicine 03/17/22 Erika May, STRIP CATCHER.MOP WORKER [address] [facility] [place] [address] Specialty Varnish Remover Neurology 09/07/22 Tatiana Rodas STRIP CATCHER.MOP WORKER [address] [place] [address] Specialty Varnish Remover Neurology 12/05/22 Home Extension Agent Relationship Specialty Start Date End Date Ja Cooley [address] [facility] [address] [place] [address] PCP - General Family Medicine 03/17/22 Erika May, STRIP CATCHER.MOP WORKER [address] [facility] [place] [address] Specialty Varnish Remover Neurology 09/07/22 Tatiana Rodas STRIP CATCHER.MOP WORKER [address] [place] [facility] [place] [address] Specialty Varnish Remover Neurology 12/05/22 Home Extension Agent Relationship Specialty Start Date End Date Ja Cooley [address] [facility] [address] [place] [address] PCP - General Family Medicine 03/17/22 Erika May, STRIP CATCHER.MOP WORKER [address] [place] [facility] [place] [address] Specialty Varnish Remover Neurology 09/07/22 Tatiana Rodas STRIP CATCHER.MOP WORKER [address] [place] [address] Specialty Varnish Remover Neurology 12/05/22 Home Extension Agent Relationship Specialty Start Date End Date LenoraJa [address] [facility] [address] [place] [address] PCP - General Family Medicine 03/17/22 Erika May, STRIP CATCHER.MOP WORKER [address] [facility] [place] [address] Specialty Varnish Remover Neurology 09/07/22 Tatiana Rodas APRN.MOP WORKER [address] [place] [facility] [place] [address] Specialty Varnish Remover Neurology 12/05/22 Home Extension Agent Relationship Specialty Start Date End Date Ja Cooley [address] [facility] [address] [place] [address] PCP - General Family Medicine 03/17/22 Erika May, STRIP CATCHER.MOP WORKER [address] [facility] [place] [address] Specialty Varnish Remover Neurology 09/07/22 Tatiana Rodas APRN.MOP WORKER [address] [facility] [place] [address] Specialty Varnish Remover Neurology 12/05/22 FOR RECORDS PERTAINING TO PATIENTS [...] BE BASED ON THE PRIMARY CLINICAL RECORDS. [facility] [employer] [facility]. provides no warranty or guarantee of the accuracy or completeness of information in this document.
== END | disposition home or self-care (01) ==
LOC: MTRAD 15:38
PROVIDERS: PCP Family Medicine; Referring Provider Internal Medicine Pulmonary Disease; Visit Provider Internal Medicine Pulmonary Disease
DX: R06.02 Shortness of breath (principal); R05.9 Cough, unspecified
CPT/HCPCS: 71046

== ENCOUNTER → 2024-02-27 | Outpatient (CLI) | payer MEDICARE, OTHER, SELFPAY ==
[2024-02-27 18:11] LABS: AST(SGOT) 15 U/L (15-37); Alanine Aminotransfer ALT/SGPT 14 U/L (16-61); Anion Gap 7 (5-15); BUN 20 mg/dL (7-18); BUN/Creat Ratio 22.1 RATIO (10-20); Calcium,Total 9.3 mg/dL (8.5-10.1); Chloride 106 mmol/L (98-107); EST Glomerular Filtration Rate 86 mL/min (>60); Est Glom Filt Rate - Afr Amer 104 mL/min (>60); Glucose 94 mg/dL (74-106); Potassium 3.9 mmol/L (3.5-5.1); Sodium Level 141 mmol/L (136-145)
[2024-02-27 18:13] LABS: Hemoglobin A1c 6.1 % (3.8-5.6)
== END | disposition home or self-care (01) ==
PROVIDERS: PCP Family Medicine; Referring Provider Internal Medicine Endocrinology, Diabetes & Metabolism; Visit Provider Internal Medicine Endocrinology, Diabetes & Metabolism
DX: E11.42 Type 2 diabetes mellitus with diabetic polyneuropathy (principal); E78.2 Mixed hyperlipidemia; I10 Essential (primary) hypertension
CPT/HCPCS: 36415; 80048; 83036; 84450; 84460

== ENCOUNTER → 2024-03-25 | Outpatient (CLI) | payer MEDICARE, OTHER, SELFPAY ==
[2024-03-25 17:52] LABS: Hemoglobin A1c 6.1 % (3.8-5.6)
[2024-03-25 17:54] LABS: ALB/GLOB Ratio 1.1 RATIO (0.9-2.4); AST(SGOT) 11 U/L (15-37); Alanine Aminotransfer ALT/SGPT 13 U/L (16-61); Albumin, Serum 3.5 g/dL (3.2-5.0); Alkaline Phosphatase 62 U/L (45-117); Anion Gap 6 (5-15); BUN 24 mg/dL (7-18); BUN/Creat Ratio 23.8 RATIO (10-20); Calcium,Total 8.9 mg/dL (8.5-10.1); Chloride 104 mmol/L (98-107); Creatinine, Serum 1.01 mg/dL (0.70-1.30); EST Glomerular Filtration Rate 76 mL/min (>60); Est Glom Filt Rate - Afr Amer 92 mL/min (>60); Globulin 3.3 g/dL (2.2-4.2); Glucose 260 mg/dL (74-106); Potassium 3.9 mmol/L (3.5-5.1); Protein, Total 6.8 g/dL (6.4-8.2); Sodium Level 138 mmol/L (136-145)
[2024-03-29 14:09] LABS: ACHR Recep AB, Blocking 16 % (0-25)
== END | disposition home or self-care (01) ==
LOC: LAB.FUTURE 15:44
PROVIDERS: Psychiatry & Neurology Neurology; PCP Family Medicine; Referring Provider Internal Medicine Endocrinology, Diabetes & Metabolism; Visit Provider Internal Medicine Endocrinology, Diabetes & Metabolism
DX: E11.42 Type 2 diabetes mellitus with diabetic polyneuropathy (principal); E78.2 Mixed hyperlipidemia; I10 Essential (primary) hypertension
CPT/HCPCS: 36415; 80053; 83036; 83519

== ENCOUNTER → 2024-04-05 | Outpatient (CLI) | payer MEDICARE, OTHER, SELFPAY ==
--- NOTE | 2024-04-05 12:36 | MRI_ITS ---
STUDY: MRI BRAIN AND ORBITS WITH AND WITHOUT CONTRAST REASON FOR EXAM: Male, 78 years old. Right abducens palsy. Parkinson''s disease. Diplopia. Attention to orbits. TECHNIQUE: Standardized fat and water weighted pulse sequences were obtained in all 3 orthogonal planes, pre-and post contrast administration. 23 mL of IV Clariscan was administered for the contrast portion of the examination. COMPARISON: None. FINDINGS: Normal bilateral globes. Normal bilateral optic nerve sheath complexes and optic nerves. Normal bilateral intraconal and extraconal spaces. Normal bilateral extraocular muscles. Normal optic chiasm and post-chiasmatic tracts. Normal sella turcica, pituitary gland, infundibular stalk, and hypothalamus. Normal bilateral cavernous sinuses. Normal tectal plate and pineal gland. Normal flow voids within the major intracranial circulation suggesting patency by spin echo criteria. No communicating or noncommunicating hydrocephalus. Normal white matter tracts of the supratentorial brain. Normal bilateral basal ganglia. Normal thalami. There is no extra-axial fluid accumulation. Mild widening of the interpedicular cistern. No suspicious atrophy of the tegmentum of the brain. No suspicious signal alteration or atrophy of the substantia nigra, red nucleus and globus pallidus. Normal katia and medulla. Normal cerebellum. Normal suprasellar and basal cisterns.
== END | disposition home or self-care (01) ==
LOC: MRI 12:15
PROVIDERS: PCP Family Medicine; Referring Provider Psychiatry & Neurology Neurology; Visit Provider Psychiatry & Neurology Neurology
DX: G20.A1 Parkinson's disease without dyskinesia, without mention of fluctuations (principal); H49.21 Sixth [abducent] nerve palsy, right eye; H53.2 Diplopia
CPT/HCPCS: 70553; A9575

== ENCOUNTER → 2024-04-09 | Outpatient (CLI) | payer MEDICARE, OTHER, SELFPAY ==
[2024-04-12 16:10] LABS: Acetylcholine Receptor Binding < 0.03 nmol/L (0.00-0.24)
== END | disposition home or self-care (01) ==
LOC: MTLAB 15:09
PROVIDERS: PCP Family Medicine; Referring Provider Psychiatry & Neurology Neurology; Visit Provider Psychiatry & Neurology Neurology
DX: H53.2 Diplopia (principal)
CPT/HCPCS: 36415; 84238

== ENCOUNTER → 2024-04-17 | Outpatient (CLI) | payer MEDICARE, OTHER, SELFPAY ==
[2024-04-17 14:10] LABS: Bacteria 0 SEEN /hpf (None Seen); Mucous, Urine 0 SEEN /hpf (<or=2+); Red Blood Cells-Urine 0 SEEN /hpf (0-5); Squamous Epithelial Cells - UA 0 SEEN /hpf (0-5); White Blood Cells 0 SEEN /hpf (0-5)
[2024-04-17 17:43] LABS: Color, Urine Yellow (Yellow); Glucose, Dipstick Normal (Normal); Ketone-Dipstick Negative (Negative); Leukocyte Esterase-Dipstick Negative /ul (Negative); Nitrite-Dipstick Negative (Negative); Occult Blood-Urine Negative /ul (Negative); Protein-Dipstick 15 mg/dl (Negative); Urine Clarity Clear (Clear); Urine Urobilinogen 8 mg/dl (Normal)
[2024-04-17 17:53] LABS: Urine Bilirubin Dipstick 1 mg/dL (Negative)
[2024-04-17 18:17] LABS: Absolute Lymphocyte Count 3.21 X10^3/uL (0.83-4.51); Absolute Neutrophil Count 5.6 X10^3/uL (2.0-7.7); Basophil# 0.08 X10^3/uL; Basophil% 0.8 % (0-1); Eosinophil# 0.18 X10^3/uL; Eosinophils% 1.8 % (0-5); Hematocrit 45.4 % (40-54); Hemoglobin 15.2 g/dL (13.0-16.5); Lymphocyte # 3.21 X10^3/ul (0.83-4.51); Lymphocyte % 31.4 % (19-41); Mean Corp Hgb Conc 33.5 g/dL (32-36); Mean Corpuscular Hgb 30.2 pg (27.0-32.0); Mean Corpuscular Volume 90.3 fL (80-94); Mean Platelet Vol. 11.3 fl (6.2-12.0); Monocyte% 10.8 % (0-10); NRBC Flagged by Analyzer 0 % (0-5); Neutrophil # 5.62 X10^3/uL (2.7-7.7); Neutrophil % 54.9 % (47-70); Platelet Count 265 K/mm3 (150-450); RBC Distribution Width CV 12.9 % (11.6-14.6); RBC Distribution Width SD 42.5 fl (35.1-43.9); Red Blood Count 5.03 M/mm3 (4.6-6.2); White Blood Count 10.2 K/mm3 (4.4-11.0)
[2024-04-17 18:20] LABS: Vitamin D,25 Hydroxy 54.5 ng/mL
[2024-04-17 18:40] LABS: ALB/GLOB Ratio 1.1 RATIO (0.9-2.4); AST(SGOT) 16 U/L (15-37); Alanine Aminotransfer ALT/SGPT 17 U/L (16-61); Albumin, Serum 3.6 g/dL (3.2-5.0); Alkaline Phosphatase 61 U/L (45-117); Anion Gap 9 (5-15); BUN 19 mg/dL (7-18); BUN/Creat Ratio 21.3 RATIO (10-20); Calcium,Total 9.1 mg/dL (8.5-10.1); Chloride 105 mmol/L (98-107); Cholesterol 133 mg/dL (200); Creatinine, Serum 0.89 mg/dL (0.70-1.30); EST Glomerular Filtration Rate 87 mL/min (>60); Est Glom Filt Rate - Afr Amer 105 mL/min (>60); Globulin 3.4 g/dL (2.2-4.2); Glucose 102 mg/dL (74-106); High Density Lipoprotein 47 mg/dL; Magnesium 1.8 mg/dL (1.6-2.6); Potassium 3.5 mmol/L (3.5-5.1); Sodium Level 139 mmol/L (136-145); Thyroid Stim Hormone (TSH) 2.02 uIU/mL (0.358-3.74); Triglycerides 199 mg/dL; Very Low Density Lipoprotein 40 mg/dL (5-40)
== END | disposition home or self-care (01) ==
LOC: MTLAB 14:03
PROVIDERS: PCP Family Medicine; Referring Provider Family Medicine; Visit Provider Family Medicine
DX: E11.59 Type 2 diabetes mellitus with other circulatory complications (principal); I48.91 Unspecified atrial fibrillation; E55.9 Vitamin D deficiency, unspecified
CPT/HCPCS: 36415; 80053; 80061; 81001; 82306; 83735; 84443; 85025

== ENCOUNTER → 2024-06-10 | Outpatient (CLI) | payer MEDICARE, OTHER, SELFPAY | END | disposition home or self-care (01) | LOC: LAB 13:38 | PROVIDERS: PCP Family Medicine; Referring Provider Nurse Practitioner; Visit Provider Nurse Practitioner | DX: R97.20 Elevated prostate specific antigen [PSA] (principal) | CPT/HCPCS: 36415; 84153 ==

== ENCOUNTER → 2024-06-27 | Outpatient (CLI) | payer MEDICARE, OTHER, SELFPAY ==
[2024-06-27 15:07] LABS: AST(SGOT) 10 U/L (15-37); Alanine Aminotransfer ALT/SGPT 8 U/L (16-61); Anion Gap 6 (5-15); BUN 16 mg/dL (7-18); BUN/Creat Ratio 17.4 RATIO (10-20); Calcium,Total 8.8 mg/dL (8.5-10.1); Chloride 109 mmol/L (98-107); Cholesterol 105 mg/dL (200); Creatinine, Serum 0.92 mg/dL (0.70-1.30); EST Glomerular Filtration Rate 84 mL/min (>60); Est Glom Filt Rate - Afr Amer 102 mL/min (>60); Glucose 47 mg/dL (74-106); High Density Lipoprotein 45 mg/dL; Potassium 3.5 mmol/L (3.5-5.1); Sodium Level 143 mmol/L (136-145); Thyroid Stim Hormone (TSH) 1.99 uIU/mL (0.358-3.74); Triglycerides 99 mg/dL; Very Low Density Lipoprotein 20 mg/dL (5-40)
[2024-06-27 16:18] LABS: Hemoglobin A1c 6.4 % (3.8-5.6)
== END | disposition home or self-care (01) ==
LOC: MTLAB 12:37
PROVIDERS: PCP Family Medicine; Referring Provider Internal Medicine Endocrinology, Diabetes & Metabolism; Visit Provider Internal Medicine Endocrinology, Diabetes & Metabolism
DX: E11.42 Type 2 diabetes mellitus with diabetic polyneuropathy (principal); E04.9 Nontoxic goiter, unspecified; E78.2 Mixed hyperlipidemia
CPT/HCPCS: 36415; 80048; 80061; 83036; 84443; 84450; 84460

== ENCOUNTER → 2024-08-07 | Outpatient (CLI) | payer MEDICARE, OTHER, SELFPAY ==
--- NOTE | 2024-08-07 14:19 | RAD_ITS ---
STUDY: X-RAY - LEFT RADIUS AND ULNA REASON FOR EXAM: Male, 79 years old. Fall. Pain. TECHNIQUE: 2 view(s) of the forearm. COMPARISON: None. FINDINGS: There is no demonstrated soft tissue swelling. Osteopenia. Normal visualized radius. Plate-screw fixation of the distal fibula in anatomic alignment. RAD/Forearm 2 Views IMPRESSION: No acute abnormality. Electronically Signed: Humberto Perez MD at 15:33 EDT ,
--- NOTE | 2024-08-07 14:19 | RAD_ITS ---
STUDY: X-RAY - LEFT WRIST REASON FOR EXAM: Male, 79 years old. Fall. Pain. TECHNIQUE: 3 view(s) of the wrist were obtained. COMPARISON: January 08, 2018 FINDINGS: Deformity of the distal radius from prior fracture. Mild arthrosis of the radiocarpal articulation. Mild arthrosis of the distal radioulnar articulation. Moderate arthrosis of the radial carpal row of the wrist. Moderate arthrosis of the first carpometacarpal joint. Plate and screw fixation of the distal ulna.. Normal soft tissues. RAD/Wrist min 3 Views IMPRESSION: Osteopenia with osteoarthritic changes. No acute finding. Electronically Signed: Humberto Perez MD at 15:38 EDT ,
--- NOTE | 2024-08-07 14:20 | RAD_ITS ---
STUDY: X-RAY - LEFT ANKLE REASON FOR EXAM: Male, 79 years old. Fall. Pain. TECHNIQUE: 3 view(s) of the ankle. COMPARISON: None. FINDINGS: Osteopenia. Normal visualized distal tibia and fibula. Normal medial and lateral malleoli. Normal tibiotalar articulation and ankle mortise. Small inferior calcaneal spur. Mild arthrosis. Diffuse soft tissue swelling. RAD/Ankle min 3 Views IMPRESSION: Osteopenia, calcaneal spur, midfoot arthrosis and diffuse soft tissue swelling. No acute finding. Electronically Signed: Humberto Perez MD at 15:36 EDT ,
== END | disposition home or self-care (01) ==
LOC: MTRAD 14:19
PROVIDERS: PCP Family Medicine; Referring Provider Family Medicine; Visit Provider Family Medicine
DX: M25.572 Pain in left ankle and joints of left foot (principal); M25.532 Pain in left wrist
CPT/HCPCS: 73090; 73110; 73610

== ENCOUNTER → 2024-09-02 | Outpatient (CLI) | payer MEDICARE, OTHER, SELFPAY ==
[2024-09-05 13:08] LABS: Albumin 3.9 g/dL (2.9-4.4); Alpha-1-Globulins 0.2 g/dL (0.0-0.4); Alpha-2-Globulins 0.8 g/dL (0.4-1.0); Gamma Globulin 0.9 g/dL (0.4-1.8); Immunoglobulin A 171 mg/dL (61-437); Immunoglobulin G 946 mg/dL (603-1613); Immunoglobulin M 100 mg/dL (15-143); PROEL- TOTAL PROTEIN 6.7 g/dL (6.0-8.5)
== END | disposition home or self-care (01) ==
LOC: MFPLAB 14:19
PROVIDERS: PCP Family Medicine; Visit Provider Psychiatry & Neurology Neurology
DX: G62.9 Polyneuropathy, unspecified (principal)
CPT/HCPCS: 36415; 82784; 84165; 86334; 86335

== ENCOUNTER → 2024-09-20 | Outpatient (CLI) | payer MEDICARE, OTHER, SELFPAY ==
--- NOTE | 2024-09-20 13:43 | ST.MBS ---
Modified Barium Swallow Patient Information Study Date: 09/20/24 Study Time: 13:00 Direct Billable Minutes: 120 Total Minutes procedure & reportin Diagnosis: G20 - Parkinson's disease Referring Physician: Vick Rosenberg Reason for Referral: Objectively assess swallow function, assess risk for aspiration, and determine recommendations for least restrictive diet textures and compensatory strategies to improve safety of swallow.? Medical History: Pt. is here for MBSS as referred by neurologist Dr. Rosenberg to evaluate dysphagia. He is diagnosed with moderate Parkinson's disease. According to pt., he has been experiencing frequent episodes of coughing and choking with solids and liquids. He is unable to provide specifics regarding whether certain foods or drinks, or using a cup or straw, contribute to his difficulties. Pt. denies any history of pneumonia. Dentition: WNL Mental Status: Impaired (Parkinson's disease dementia) Respiratory Status: Oxygenating on Room Air Penetration-Aspiration Scale Penetration-Aspiration Scale: OBJECTIVE ASSESSMENT OF SWALLOW FUNCTION (QUANTITATIVE ? PER TRIAL): PENETRATION / ASPIRATION SCALE (OBANDO): 1 = does not enter airway 2 = enters airway/above vocal folds/ejected 3 = enters airway/above vocal folds/not ejected 4 = enters airway/contacts vocal folds/ejected 5 = enters airway/contacts vocal folds/not ejected 6 = enters airway/below vocal folds/ejected 7 = enters airway/below vocal folds/not ejected despite effort 8 = enters airway/below vocal folds/no effort VIDEOFLOROSCOPIC SCALE SCORE (OBANDO): Grade I = aspiration of material that has penetrated into the laryngeal vestibule, intact cough reflex Grade II = aspiration < 10 % of the bolus, intact cough reflex Grade III = aspiration of < 10 % of the bolus, reduced cough reflex or aspiration of > 10 % of the bolus, intact cough reflex Grade IV = aspiration of > 10 % of the bolus, reduced cough reflex Penetration-Aspiration Scale Score Thin Liquid via teaspoon: Result: 1= does not enter airway Thin Liquid via small single sip: cup: Result: 1= does not enter airway Thin Liquid via large single sip: cup: Result: 2= enter airway/above vocal folds/ejected Thin Liquid via small single sip: cup Effortful swallow: Result: 1= does not enter airway [place] Thick Liquid via small single sip: cup: Result: 1= does not enter airway Honey Thick Liquid via small single sip: cup: Result: 1= does not enter airway Pudding via teaspoon: Result: 1= does not enter airway Cookie: Result: 1= does not enter airway Thin Liquid via single sip: straw: Result: 2= enter airway/above vocal folds/ejected Thin Liquid via sequential sips:straw: Result: 5= enters airways/contacts vocal folds/not ejected Thin Liquid via small single sip: cup Effortful swallow Trial 2: Result: 1= does not enter airway Oral Phase Labial Seal: No Labial Escape Tongue Control During Bolus Hold: Posterior escape of greater than half of bolus Bolus Preparation/Mastication: Slow prolonged chewing/mashing with complete recollection Bolus Transport/Lingual Motion: Delayed initiation of tongue motion Oral Residue: Residue collection on oral structures Pharyngeal Phase Initiation of Pharyngeal Swallow: Bolus head in pyriforms Soft Palate Elevation: No bolus between soft palate and pharyngeal wall Laryngeal Elevation: Partial superior movement thyroid cart/partial apprx aryt-epig petiole Anterior Hyoid Excursion: Complete anterior movement Epiglottic Movement: Complete inversion Laryngeal Vestibule Closure at Height of Swallow: Incomplete; narrow column of air/contrast in laryngeal vestibule Pharyngeal Stripping Wave: Present - diminished Pharyngoesophageal Segment Opening: Parital distension and partial duration; parital obstruction of flow Tongue Base Retraction: Narrow column of contrast between tongue base & post. pharyngeal wall Pharyngeal Residue: Collection of residue within or on pharyngeal structures Esophageal Phase Esophageal Clearance: Esophageal retention Treatment Strategies Effects of treatment strategies attemped:: small sips = effective effortful swallow = effective Diagnosis/Impression Diagnosis: mild oropharyngeal dysphagia R13.12 Impression: The pt. presents with mild oropharyngeal dysphagia likely secondary to Parkinson's disease. Pt. demonstrated poor bolus control, with over half of the bolus in the vallecula and pyriform sinuses prior to swallow onset. Improvement in bolus control was noted with smaller sips, especially when taken with a teaspoon or when prompted by the [facility] to take smaller sips. Poor bolus control and delayed pharyngeal onset increase pt.'s risk for pre-prandial aspiration. Pt. also exhibited piecemeal deglutition for both liquids and solids, with laryngeal penetration observed during the second swallow of thin liquid, both from a cup and a straw. Laryngeal penetration to vocal cords that was not fully ejected resulted in an immediate, strong reflexive cough following sequential sips of thin liquids via straw. While no aspiration was observed, pt. remains at risk for aspiration due to decreased airway protection attributed to reduced laryngeal elevation and closure. Use of an effortful swallow improved airway closure. Pt. successfully demonstrated the use of small sips with an effortful swallow throughout MBSS with no laryngeal penetration or aspiration observed. Oral residue was observed spilling into the vallecula and pyriform sinuses after the swallow, indicating decreased lingual strength and incomplete oral clearance. Pt. required 2-4 swallows per trial to fully clear oral and pharyngeal residues, with some retention noted in esophagus following pudding trial. Recommendations Diet: Regular Textures and Thin Liquids (w/ effortful swallow) Compensatory Strategies: Small Bites, Small Sips, No Straws, Slow Rate, Multiple Swallows, Alternate bites/solids and sips/liquids, Sitting upright, Remain sitting upright for 30 minutes after PO intake and Assist with verbal cues to use recommended strategies Supervision: Assist as needed Recommend Repeat Modified Barium Swallow: TBD Need for Skilled Speech Therapy Services: Yes Comment: Pt. would benefit from continued speech therapy services to address diet texture management, training and implementation of recommended compensatory strategies, as well as oropharyngeal strengthening exercises to improve swallow function and decrease risk. [facility] communicated with Dr. Rosenberg's office regarding the outpatient speech therapy referral, and pt. is in agreement. Education Completed: 1. Described result of evaluation. and 2. Pt understands evaluation & agrees with goals and treatment plan. Status Active ST Patient: Active Contact Information [facility] Speech Therapy:: Chayito Barber M.A. [facility] Speech-Language Pathologist [place] [address] [place] [address] [email or web address] [phone]
== END | disposition home or self-care (01) ==
LOC: RAD 12:55
PROVIDERS: PCP Family Medicine; Referring Provider Psychiatry & Neurology Neurology; Visit Provider Psychiatry & Neurology Neurology
DX: R13.10 Dysphagia, unspecified (principal); R05.9 Cough, unspecified
CPT/HCPCS: 74230; 92611

== ENCOUNTER → 2024-09-27 | Outpatient (CLI) | payer MEDICARE, OTHER, SELFPAY | END | disposition home or self-care (01) | LOC: MTRAD 15:06 | PROVIDERS: PCP Family Medicine; Referring Provider Otolaryngology; Visit Provider Otolaryngology | DX: R05.9 Cough, unspecified (principal) | CPT/HCPCS: 71046 ==

== ENCOUNTER 2024-10-12 11:15 | Emergency (ER) | payer MEDICARE, OTHER, SELFPAY ==
[2024-10-12 11:16] VITALS: BP 121/61; PULSE 70; RESP 16; TEMP 36.6; O2SAT 96; BMI 35.6
--- NOTE | 2024-10-12 11:34 | EX.ED.GENINJ ---
HPI History of Present Illness Chief Complaint: Chest Other Informant: patient and spouse/S.O. Narrative Narrative: 79-year-old male lives with his has Parkinson's and has frequent falls as a result, about 6 days ago he was pulling a trash bag out of a trash can, lost his balance and fell hitting his left anterior chest wall on a nearby concrete step. Has been having pain ever since and the pain seems to be getting worse not better, hence they are concerned. He denies any other pain or injury. It hurts to move and worse to take a deep breath but he has not been dyspneic. He has not been coughing up any blood. [facility] Medical History Parkinson's disease Right bundle branch block (RBBB) Obesity Type 2 diabetes mellitus Essential (primary) hypertension Cataract Back problem Arthritis HLD (hyperlipidemia) Paroxysmal atrial fibrillation Home Medications ?Medication ?Instructions ?Recorded ?Last Taken ?Type pravastatin 80 mg tablet 80 mg PO QDAY 04/06/18 Unknown History hydrochlorothiazide 12.5 mg tablet 12.5 mg PO DAILY 04/12/21 Unknown History fluticasone fur. 200 mcg-umeclid 1 inh inhalation DAILY 04/12/22 Unknown History 62.5 mcg-vilant 25 mcg inhalat.powder (Trelegy Ellipta) pantoprazole 40 mg tablet,delayed 40 mg PO DAILY 04/12/22 Unknown History release potassium chloride 10 mEq 20 meq PO DAILY 04/12/22 Unknown History tablet,extended release finasteride 5 mg tablet 5 mg PO DAILY 04/11/23 Unknown History alfuzosin 10 mg tablet,extended 10 mg PO DAILY 04/12/23 Unknown History release 24 hr cholecalciferol (vitamin D3) 25 50 mcg PO DAILY 04/12/23 Unknown History mcg (1,000 unit) capsule insulin aspart U-100 100 unit/mL See Rx Instructions .Route .COMPLEX 04/12/23 Unknown History subcutaneous solution (Novolog U-100 Insulin aspart) metformin 750 mg tablet,extended 750 mg PO QHS 04/12/23 Unknown History release 24 hr ascorbic acid (vitamin C) 1,000 mg 1 g PO DAILY 06/27/24 Unknown History capsule insulin glargine U-300 conc 300 60 unit subcut DAILY 06/27/24 Unknown History unit/mL (3 mL) subcutaneous pen (Toujeo Max U-300 SoloStar) zinc gluconate 30 mg tablet 30 mg PO DAILY 06/27/24 Unknown History doxepin 25 mg capsule 25 mg PO QHS #90 caps 07/01/24 Unknown Rx buspirone 5 mg tablet 5 mg PO TID #270 tabs 09/02/24 Unknown Rx carbidopa 25 mg-levodopa 100 mg 2 tab PO .QID #720 tabs 09/02/24 Unknown Rx tablet propranolol 60 mg capsule,24 60 mg PO DAILY #90 caps 09/02/24 Unknown Rx hr,extended release hydrocodone-acetaminophen 5-325mg 1 tab PO Q6H PRN PRN Pain 4 days 10/12/24 Unknown Rx 5mg-325mg #15 TABLETS Allergy/AdvReac Type Severity Reaction Status Date / Time metoclopramide (From Reglan) Allergy Severe HYPER Verified 10/12/24 11:15 Family History Father Leukemia Surgical History History of total left knee replacement (TKR) History of left tennis elbow Hx of spinal fusion History of skin cancer Social History (Updated 10/12/24 @ 11:[address] Osman Farooq MD) household members: spouse Smoking Status: Former smoker alcohol intake: never substance use type: does not use ROS ROS ED Constitutional Constitutional ED: Denies chills or fever(s) Eyes Eyes: Denies change in vision or diplopia ENT ENT ED: Denies rhinorrhea or sore throat Cardiovascular Cardiovascular: Reports chest pain; Denies palpitations Respiratory/Chest Respiratory/Chest: Denies cough, dyspnea or hemoptysis Gastrointestinal Gastrointestinal: Denies abdominal pain, diarrhea, nausea or vomiting Genitourinary Genitourinary ED: Denies dysuria or hematuria Musculoskeletal Musculoskeletal: Denies back pain or neck pain Integumentary Denies abscess or rash Neurologic Neurologic: Denies headache(s), paresthesias or weakness Psychiatric Psychiatric: Denies anxiety or suicidal thoughts EXAM Physical Exam Const Vital Signs: 10/12/24 11:16 10/12/24 11:40 Temperature 98 F Temperature Source Temporal Pulse Rate 70 Respiratory Rate 16 Respiratory Effort Normal Non-Labored Blood Pressure 121/61 H Blood Pressure Mean 81 Pulse Ox 96 Oxygen Delivery Method Room Air Positive well nourished and well developed General Appearance ED: well developed and NAD HEENT Reports moist mucous membranes normocephalic and atraumatic Eyes PERRL and EOMs intact bilaterally Neck full ROM and supple Chest Wall Chest Narrative: Very tender left anterior chest wall just at the inframammary crease. There is a small yellowed amount of ecchymosis a little medial and distal to this. There is no subcutaneous emphysema. Resp normal respiratory effort and clear to auscultation bilaterally Resp Narrative: Equal breath sounds bilaterally. Effort and Inspection: able to speak in complete sentences Cardio regular rate, regular rhythm and no murmurs GI non-tender and non-distended Auscultation: normoactive bowel sounds Palpation: soft Extremity normal to inspection General Extremety ED: Negative for pulses abnormal or tenderness General Extremity: Negative for pulses abnormal Neuro oriented x3, CN's II-XII intact bilaterally and no sensory deficits noted Sensorium / Orientation: awake and alert Motor Exam: strength 5/5 throughout Skin no rashes or lesions noted and no wounds MDM MDM MDM Narrative Medical decision making narrative: 5 view x-ray series of the left ribs including a PA chest on my interpretation show what is probably a single nondisplaced rib fracture without a pneumothorax or signs of a pulmonary contusion (radiology saw two). He was offered pain medication here, he declined but states that he will take a prescription for something to use as needed, also given an incentive spirometer, and we discussed supportive care and management and follow-up. Radiography Diagnostic Testing: Clinical Impression(s) from Imaging Studies Ribs w/Chest X-Ray 10/12/24 11:40 IMPRESSION: RIBS: Left sixth and seventh rib fractures. CHEST: Left sixth and seventh rib fractures. Left lower lung atelectasis or infiltrate. No pneumothorax. Electronically Signed: Osman Ramos MD at 12:36 EST , Discharge Plan Triage Chief Complaint: Chest Other ED Provider: Osman Farooq Dx/Rx/DC Orders Clinical Impression: Closed fracture of two ribs of left side, Fall from slip, trip, or stumble Instructions: Using an Incentive Spirometer, ED Rib Fracture Prescriptions: New hydrocodone-acetaminophen 5-325 mg tablet 1 tab PO Q6H PRN PRN (Reason: Pain) 4 Days Qty: 15 0RF No Action pravastatin 80 mg tablet 80 mg PO QDAY metformin 750 mg tablet extended release 24 hr 750 mg PO QHS insulin aspart U-100 [Novolog U-100 Insulin aspart] 100 unit/mL solution See Rx Instructions .ROUTE .COMPLEX Patient Comments: Sliding scale Rx Instructions: Sliding scale hydrochlorothiazide 12.5 mg tablet 12.5 mg PO DAILY Trelegy Ellipta 200-62.5-25 mcg blister with device 1 inh inhalation DAILY pantoprazole 40 mg tablet,delayed release (DR/EC) 40 mg PO DAILY potassium chloride 10 mEq tablet extended release 20 meq PO DAILY cholecalciferol (vitamin D3) 25 mcg (1,000 unit) capsule 50 mcg PO DAILY alfuzosin 10 mg tablet extended release 24 hr 10 mg PO DAILY Rx Instructions: administer after the same meal each day insulin glargine U-300 conc [Toujeo Max U-300 SoloStar] 300 unit/mL (3 mL) insulin pen 60 unit subcut DAILY finasteride 5 mg tablet 5 mg PO DAILY zinc gluconate 30 mg tablet 30 mg PO DAILY ascorbic acid (vitamin C) 1,000 mg capsule 1 g PO DAILY buspirone 5 mg tablet 5 mg PO TID Qty: 270 1RF carbidopa-levodopa 25-100 mg tablet 2 tab PO .QID Qty: 720 1RF propranolol 60 mg capsule,extended release 24 hr 60 mg PO DAILY Qty: 90 1RF doxepin 25 mg capsule 25 mg PO QHS Qty: 90 1RF Primary Care Provider: Ja Cooley Referrals: Ja Cooley MD [Primary Care Provider] - 1 Week if not improving Print Language: Uzbek Disposition Disposition: Home, Self Care
--- NOTE | 2024-10-12 11:40 | RAD_ITS ---
STUDY: X-RAY - UNILATERAL RIBS ( LEFT ) WITH CHEST REASON FOR EXAM: Male, 79 years old. Injury - anterior TECHNIQUE - RIBS: 4 view(s) of the ribs. TECHNIQUE - CHEST: Single frontal view of the chest. COMPARISON: September 27, 2024 chest x-ray FINDINGS - RIBS: There are nondisplaced left anterior sixth and seventh rib fractures of uncertain age. FINDINGS - CHEST: There is left lower lung atelectasis or infiltrate. There is no demonstrated pleural abnormality. Normal size heart. Normal mediastinum and javier. Normal visualized pulmonary arteries. Normal visualized aortic arch and descending thoracic aorta. There is degenerative change of the spine. There is left anterior sixth and seventh rib fractures of uncertain age. There is no demonstrated abnormality of the visualized soft tissue structures of the upper abdomen. RAD/Ribs Uni Min 3V w/PA Chest IMPRESSION: RIBS: Left sixth and seventh rib fractures. CHEST: Left sixth and seventh rib fractures. Left lower lung atelectasis or infiltrate. No pneumothorax. Electronically Signed: Osman Ramos MD at 12:36 EST ,
[2024-10-12 13:02] VITALS: BP 121/84; PULSE 78; RESP 16; TEMP 36.8; O2SAT 95
== END 2024-10-12 13:03 | disposition home or self-care (01) ==
PROVIDERS: Emergency Provider Emergency Medicine; PCP Family Medicine; Visit Provider Emergency Medicine
DX: S22.42XA Multiple fractures of ribs, left side, initial encounter for closed fracture (principal); G20.A1 Parkinson's disease without dyskinesia, without mention of fluctuations; E11.9 Type 2 diabetes mellitus without complications; E78.5 Hyperlipidemia, unspecified; Z87.891 Personal history of nicotine dependence; I10 Essential (primary) hypertension; W01.198A Fall on same level from slipping, tripping and stumbling with subsequent striking against other object, initial encounter; Z98.1 Arthrodesis status
CPT/HCPCS: 71101; 99282

== ENCOUNTER → 2024-10-28 | Outpatient (CLI) | payer MEDICARE, OTHER, SELFPAY ==
[2024-10-28 15:36] LABS: Hemoglobin A1c 6.4 % (3.8-5.6)
[2024-10-28 15:50] LABS: AST(SGOT) 9 U/L (15-37); Alanine Aminotransfer ALT/SGPT 8 U/L (16-61); Anion Gap 5 (5-15); BUN 24 mg/dL (7-18); BUN/Creat Ratio 26.5 RATIO (10-20); Calcium,Total 9.3 mg/dL (8.5-10.1); Chloride 105 mmol/L (98-107); Creatinine, Serum 0.91 mg/dL (0.70-1.30); EST Glomerular Filtration Rate 86 mL/min (>60); Est Glom Filt Rate - Afr Amer 103 mL/min (>60); Glucose 111 mg/dL (74-106); Potassium 3.4 mmol/L (3.5-5.1); Sodium Level 142 mmol/L (136-145)
== END | disposition home or self-care (01) ==
LOC: MTLAB 13:39
PROVIDERS: PCP Family Medicine; Referring Provider Internal Medicine Endocrinology, Diabetes & Metabolism; Visit Provider Internal Medicine Endocrinology, Diabetes & Metabolism
DX: E11.21 Type 2 diabetes mellitus with diabetic nephropathy (principal)
CPT/HCPCS: 36415; 80048; 83036; 84450; 84460

== ENCOUNTER → 2024-12-02 | Outpatient (CLI) | payer MEDICARE, OTHER, SELFPAY ==
--- NOTE | 2024-12-02 16:52 | RAD_ITS ---
INDICATION: HYPOXEMIA EXAMINATION/TECHNIQUE: X-RAY - XR Chest 2 Views COMPARISON: Prior study dated: 10/12/2024 FINDINGS: LINES/DEVICES: None. LUNGS: Mild atelectatic changes in the left lung base. No focal consolidation is seen. No evidence of pleural effusions. MEDIASTINUM AND CARDIOVASCULAR STRUCTURES: Cardiac silhouette not enlarged. Central airways and mediastinal contour are unremarkable. BONES AND SOFT TISSUES: Unremarkable. RAD/Chest PA and Lateral IMPRESSION: Mild atelectatic changes in the left lung base. Electronically Signed: José Luis Whalen MD at 10:04 EST ,
== END | disposition home or self-care (01) ==
LOC: MTRAD 16:51
PROVIDERS: PCP Family Medicine; Referring Provider Internal Medicine Pulmonary Disease; Visit Provider Internal Medicine Pulmonary Disease
DX: R09.02 Hypoxemia (principal)

== ENCOUNTER → 2024-12-04 | Outpatient (CLI) | payer MEDICARE, OTHER, SELFPAY ==
[2024-12-04 17:39] LABS: Absolute Lymphocyte Count 3.42 X10^3/uL (0.83-4.51); Absolute Neutrophil Count 5.9 X10^3/uL (2.0-7.7); Basophil# 0.13 X10^3/uL; Basophil% 1.2 % (0-1); Eosinophils% 1.8 % (0-5); Hematocrit 47.1 % (40-54); Hemoglobin 15.4 g/dL (13.0-16.5); Lymphocyte # 3.42 X10^3/ul (0.83-4.51); Lymphocyte % 31.5 % (19-41); Mean Corp Hgb Conc 32.7 g/dL (32-36); Mean Corpuscular Hgb 30.4 pg (27.0-32.0); Mean Corpuscular Volume 92.9 fL (80-94); Mean Platelet Vol. 10.8 fl (6.2-12.0); Monocyte# 1.17 X10^3/uL; Monocyte% 10.8 % (0-10); NRBC Flagged by Analyzer 0 % (0-5); Neutrophil # 5.88 X10^3/uL (2.7-7.7); Neutrophil % 54.1 % (47-70); Platelet Count 281 K/mm3 (150-450); RBC Distribution Width CV 13.4 % (11.6-14.6); RBC Distribution Width SD 45.1 fl (35.1-43.9); Red Blood Count 5.07 M/mm3 (4.6-6.2); White Blood Count 10.9 K/mm3 (4.4-11.0)
[2024-12-04 18:50] LABS: AST(SGOT) 13 U/L (15-37); Alanine Aminotransfer ALT/SGPT 11 U/L (16-61); Albumin, Serum 3.7 g/dL (3.2-5.0); Alkaline Phosphatase 91 U/L (45-117); Anion Gap 5 (5-15); BUN 19 mg/dL (7-18); BUN/Creat Ratio 19.7 RATIO (10-20); Calcium,Total 9.4 mg/dL (8.5-10.1); Chloride 105 mmol/L (98-107); Cholesterol 192 mg/dL (200); Creatinine, Serum 0.96 mg/dL (0.70-1.30); EST Glomerular Filtration Rate 80 mL/min (>60); Est Glom Filt Rate - Afr Amer 97 mL/min (>60); Globulin 3.7 g/dL (2.2-4.2); Glucose 48 mg/dL (74-106); High Density Lipoprotein 45 mg/dL; Potassium 3.9 mmol/L (3.5-5.1); Protein, Total 7.4 g/dL (6.4-8.2); Sodium Level 139 mmol/L (136-145); Triglycerides 153 mg/dL; Very Low Density Lipoprotein 31 mg/dL (5-40); Vitamin D,25 Hydroxy 47.5 ng/mL
[2024-12-04 19:10] LABS: Hemoglobin A1c 6.5 % (3.8-5.6)
== END | disposition home or self-care (01) ==
LOC: MFPLAB 14:06
PROVIDERS: PCP Family Medicine; Referring Provider Family Medicine; Visit Provider Family Medicine
DX: E11.9 Type 2 diabetes mellitus without complications (principal); I48.91 Unspecified atrial fibrillation; E55.9 Vitamin D deficiency, unspecified
CPT/HCPCS: 36415; 80053; 80061; 82306; 83036; 83735; 85025

== ENCOUNTER 2024-12-05 16:29 | Emergency (ER) | payer MEDICARE, OTHER, SELFPAY ==
[2024-12-05 16:30] VITALS: BP 140/67; PULSE 73; RESP 18; TEMP 36.6; O2SAT 93
--- NOTE | 2024-12-05 16:59 | CT_ITS ---
STUDY: CT BRAIN WITHOUT CONTRAST REASON FOR EXAM: Male, 79 years old. fall RADIATION DOSAGE (If Supplied By Facility): CTDIvol = ( 44.99 ) mGy, DLP = ( 829.85 ) mGycm TECHNIQUE: Transaxial CT imaging of the brain was performed without administration of intravenous contrast material. Individualized dose optimization techniques were used for this CT. COMPARISON: No relevant priors. FINDINGS: Normal soft tissue structures. Normal calvarium. Slightly prominent ventricles and extra-axial spaces with atrophy. Normal white matter tracts of the cerebral hemispheres. Normal basal ganglia and thalami. Normal brainstem. Normal cerebellum. There is no intracranial hemorrhage. There are no findings of an acute ischemic infarction. Normal visualized paranasal sinuses. CT/Brain/Head without Contrast IMPRESSION: No acute intracranial pathology of the brain. Electronically Signed: Siva Horton DO at 17:20 EST ,
[2024-12-05 17:15] VITALS: BMI 34.5
--- NOTE | 2024-12-05 17:19 | ED.VIS.FALL ---
HPI HPI - Fall History of Present Illness Chief Complaint: Fall PFSH [facility] Medical History Parkinson's disease Right bundle branch block (RBBB) Obesity Type 2 diabetes mellitus Essential (primary) hypertension Cataract Back problem Arthritis HLD (hyperlipidemia) Paroxysmal atrial fibrillation Home Medications ?Medication ?Instructions ?Recorded ?Last Taken ?Type pravastatin 80 mg tablet 80 mg PO QDAY 04/06/18 Unknown History hydrochlorothiazide 12.5 mg tablet 12.5 mg PO DAILY 04/12/21 Unknown History fluticasone fur. 200 mcg-umeclid 1 inh inhalation DAILY 04/12/22 Unknown History 62.5 mcg-vilant 25 mcg inhalat.powder (Trelegy Ellipta) pantoprazole 40 mg tablet,delayed 40 mg PO DAILY 04/12/22 Unknown History release potassium chloride 10 mEq 20 meq PO DAILY 04/12/22 Unknown History tablet,extended release finasteride 5 mg tablet 5 mg PO DAILY 04/11/23 Unknown History alfuzosin 10 mg tablet,extended 10 mg PO DAILY 04/12/23 Unknown History release 24 hr cholecalciferol (vitamin D3) 25 50 mcg PO DAILY 04/12/23 Unknown History mcg (1,000 unit) capsule insulin aspart U-100 100 unit/mL See Rx Instructions .Route .COMPLEX 04/12/23 Unknown History subcutaneous solution (Novolog U-100 Insulin aspart) metformin 750 mg tablet,extended 750 mg PO QHS 04/12/23 Unknown History release 24 hr ascorbic acid (vitamin C) 1,000 mg 1 g PO DAILY 06/27/24 Unknown History capsule insulin glargine U-300 conc 300 60 unit subcut DAILY 06/27/24 Unknown History unit/mL (3 mL) subcutaneous pen (Toujeo Max U-300 SoloStar) zinc gluconate 30 mg tablet 30 mg PO DAILY 06/27/24 Unknown History doxepin 25 mg capsule 25 mg PO QHS #90 caps 07/01/24 Unknown Rx buspirone 5 mg tablet 5 mg PO TID #270 tabs 09/02/24 Unknown Rx carbidopa 25 mg-levodopa 100 mg 2 tab PO .QID #720 tabs 09/02/24 Unknown Rx tablet propranolol 60 mg capsule,24 60 mg PO DAILY #90 caps 09/02/24 Unknown Rx hr,extended release hydrocodone-acetaminophen 5-325mg 1 tab PO Q6H PRN PRN Pain 4 days 10/12/24 Unknown Rx 5mg-325mg #15 TABLETS Allergy/AdvReac Type Severity Reaction Status Date / Time metoclopramide (From Reglan) Allergy Severe HYPER Verified 12/05/24 16:31 Family History Father Leukemia Surgical History History of total left knee replacement (TKR) History of left tennis elbow Hx of spinal fusion History of skin cancer Social History (Updated 10/12/24 @ 11:[address] Osman Farooq MD) household members: spouse Smoking Status: Former smoker alcohol intake: never substance use type: does not use EXAM Physical Exam Const Vital Signs: 12/05/24 16:30 12/05/24 17:16 12/05/24 18:33 Temperature 97.8 F Temperature Source Temporal Pulse Rate 73 74 Respiratory Rate 18 16 Respiratory Effort Normal Respiratory Depth Normal Respiratory Pattern Normal Blood Pressure 140/67 H 132/87 H Blood Pressure Mean 91 102 Pulse Ox 93 99 Oxygen Delivery Method Room Air Room Air Room Air 12/05/24 19:35 Temperature 98 F Temperature Source Pulse Rate 67 Respiratory Rate 18 Respiratory Effort Respiratory Depth Respiratory Pattern Blood Pressure 118/75 Blood Pressure Mean 89 Pulse Ox 97 Oxygen Delivery Method [facility] Narrative Medical decision making narrative: HISTORY OF PRESENT ILLNESS: 79-year-old male presents with fall. Notes head trauma. Complains of laceration of scalp. Notes headache. REVIEW OF SYSTEMS: Pertinent positives: Head trauma Pertinent negatives: Loss of consciousness PHYSICAL EXAM: Nursing triage notes reviewed, Vital signs reviewed Primary Survey Airway: Intact Breathing: Bilateral breath sounds Circulation: Palpable bilateral femorals, Palpable bilateral radial, Palpable bilateral DP and Palpable bilateral PT Disability / Spine precautions GCS Score: Eye Openin Verbal Response: 5 Motor Response: 6 Secondary Survey Constitutional: Please see MDM Head: 4-5 centimeter superficial linear laceration to the occiput Eye: Pupils equal round and reactive to light, Extraocular muscles intact and No periorbital ecchymosis or stepoff, no evidence of entrapment ENT: Oropharynx clear, no lacerations, no hemotympanum, no raccoon eyes or soriano sign Cervical spine / Neck: No cervical spine bony tenderness, crepitance, or stepoff deformity Trachea midline Lungs: Clear to auscultation, No asymmetric rise and No crepitus, no flail chest Cardiac: Regular rate and rhythm and No murmurs Abdomen: Soft, Nontender and No rebound Pelvis: Pelvis stable to compression : No evidence of genital injury Back: No midline bony tenderness to thoracic/lumbar/sacral spines Neuro: At baseline, intact strength and sensation in bilateral upper and lower extremities. 2+ patellar reflexes bilaterally. Extremities: NO gross Deformities Psych: Normal affect Nursing triage notes reviewed, Vital signs reviewed MEDICAL DECISION MAKING: Chief Complaint: Head trauma External records reviewed: Reviewed prior medications Factors affecting care: Type 2 diabetes, hypertension, , A-fib Social determinants of health: none History obtained from others: Consults: none MDM Narrative: Patient was hemodynamically stable, afebrile and nontoxic-appearing. Trauma exam with approximately 4 to 5 cm linear laceration to the posterior occiput. Bleeding controlled. I considered the following differential diagnosis: ICH, cervical spine injury ALL IMAGES (IF OBTAINED) HAVE BEEN PERSONALLY REVIEWED AND INTERPRETED BY MYSELF. CT scan of the head, cervical spine were negative for acute traumatic injuries The patient suffered lacerations to the scalp On exam there was no evidence of foreign bodies. There is no galeal involvement. There was no evidence of neurovascular injury. Wound care applied (irrigation and/or local cleansing solution). Laceration repair was then performed please see procedure note. The patient was given signs and symptoms warnings for infection, such as increasing pain, redness, swelling, associated heat, pus or fever. Patient was given instructions for timely follow-up for removal. Patient agreed with the plan of care Procedure: Laceration repair. The procedure was performed by myself. Indication: Wound repair Risks and benefits: risks, benefits and alternatives were discussed Consent: Consent was obtained. Wound Details: 4.5 cm linear laceration noted to the occiput, 1 mm deep, no foreign bodies, no galeal involvement Anesthesia: Topical let, intradermal lidocaine (verbal consent obtained from patient). Wound prep: Patient was prepped and draped in the usual sterile fashion. Tetanus: Updated today Irrigation Solution: Saline Wound Preparation: Copious irrigation with sterile saline, cleansed with chlorhexidine The wound was explored to its base in a bloodless field. Procedure Description: Placed 11, 5-0 Chromic Gut sutures with close approximation. Patient tolerated the procedure well with no immediate complications The patient and/or family, caregivers express understanding. The patient and/or family, caregivers agrees with the plan. Shared decision making: I will have a discussion with the patient and or visitors regarding risk/benefits of further testing or admission. They will be made aware of of the risk/benefits inherent in this decision they will be given the opportunity to voice understanding. Total critical care time today provided was at least 0 minutes. This excludes separately billable procedures. Critical care time (if documented) is secondary to the patient having high probability of clinically significant/life threatening deterioration in the patient's condition which required my urgent intervention. Impression: 1. Fall 2. History of Parkinson disease 3. Scalp laceration 4. Concussion Dispo: Discharge home This note was generated with [employer] dictation software. It may contain incorrect words, spelling, and punctuation that were not noted in review of the chart prior to signing. Radiography Diagnostic Testing: Clinical Impression(s) from Imaging Studies Brain CT 12/05/24 16:59 IMPRESSION: No acute intracranial pathology of the brain. Electronically Signed: Siva Horton DO at 17:20 EST , Cervical Spine CT 12/05/24 17:34 IMPRESSION: Degenerative changes of the cervical spine. Electronically Signed: Siva Horton DO at 18:32 EST , Discharge Plan Triage Chief Complaint: Fall ED Provider: Estuardo Mccormack Dx/Rx/DC Orders Clinical Impression: Laceration of head Instructions: ED Laceration, All Closures Prescriptions: No Action pravastatin 80 mg tablet 80 mg PO QDAY metformin 750 mg tablet extended release 24 hr 750 mg PO QHS insulin aspart U-100 [Novolog U-100 Insulin aspart] 100 unit/mL solution See Rx Instructions .ROUTE .COMPLEX Patient Comments: Sliding scale Rx Instructions: Sliding scale hydrochlorothiazide 12.5 mg tablet 12.5 mg PO DAILY Trelegy Ellipta 200-62.5-25 mcg blister with device 1 inh inhalation DAILY pantoprazole 40 mg tablet,delayed release (DR/EC) 40 mg PO DAILY potassium chloride 10 mEq tablet extended release 20 meq PO DAILY cholecalciferol (vitamin D3) 25 mcg (1,000 unit) capsule 50 mcg PO DAILY alfuzosin 10 mg tablet extended release 24 hr 10 mg PO DAILY Rx Instructions: administer after the same meal each day insulin glargine U-300 conc [Toujeo Max U-300 SoloStar] 300 unit/mL (3 mL) insulin pen 60 unit subcut DAILY finasteride 5 mg tablet 5 mg PO DAILY zinc gluconate 30 mg tablet 30 mg PO DAILY ascorbic acid (vitamin C) 1,000 mg capsule 1 g PO DAILY buspirone 5 mg tablet 5 mg PO TID Qty: 270 1RF carbidopa-levodopa 25-100 mg tablet 2 tab PO .QID Qty: 720 1RF propranolol 60 mg capsule,extended release 24 hr 60 mg PO DAILY Qty: 90 1RF hydrocodone-acetaminophen 5-325 mg tablet 1 tab PO Q6H PRN PRN (Reason: Pain) 4 Days Qty: 15 0RF doxepin 25 mg capsule 25 mg PO QHS Qty: 90 1RF Primary Care Provider: Ja Cooley Referrals: Ja Cooley MD [Primary Care Provider] - Activity Restrictions/Additional Instructions: Thank you for trusting us with your care today! Your laceration was repaired with absorbable sutures. They should resorb on their own in approximately 7 to 10 days. Please look out for signs of infection of your wound which present as redness, discharge, warmth, fever, increasing pain. He signs about please return to the ED immediately. Please keep the wound clean and dry. Please inspect wound for signs of infection daily. Please do not introduce water to the wound for the first 24 hours. After 24 hours that is fine to shower and shampoo normally. Please take Tylenol (2 pills, 650 mg), ibuprofen (2 pills, 400 mg) every 6 hours as needed for pain and fever control. Please return to the emergency department if your symptoms change or worsen. Please follow with your primary care physician for further outpatient evaluation and management. Print Language: Icelandic Disposition Disposition: Home, Self Care Discharge Date/Time: 12/05/24 19:30
--- NOTE | 2024-12-05 17:34 | CT_ITS ---
STUDY: CT CERVICAL SPINE WITHOUT CONTRAST REASON FOR EXAM: Male, 79 years old. midline C-spine TTP RADIATION DOSAGE (If Supplied By Facility): CTDIvol = ( 26.81 ) mGy, DLP = ( 644.49 ) mGycm TECHNIQUE: High resolution transaxial imaging was performed without contrast material. Sagittal and coronal images were reconstructed. Individualized dose optimization techniques were used for this CT. COMPARISON: None FINDINGS: Normal craniovertebral junction. Normal anterior atlantoaxial articulation. Normal odontoid process. Straightening of the cervical lordosis. Normal vertebral bodies and posterior osseous elements. C2-3: Normal endplates. Normal disc height and morphology. Normal central canal and intervertebral neuroforamina. C3-4: Mild spurring at the endplates. Narrowed disc height. Normal central canal. Uncovertebral spurs narrowing the left intervertebral neural foramen. C4-5: Mild spurring at the endplates. Narrowed disc height. Normal central canal. Uncovertebral spurs slightly narrowing the intervertebral neuroforamina. C5-6: Mild spurring at the endplates. Narrowed disc height. Normal central canal. Uncovertebral spurs slightly narrowing the intervertebral neuroforamina, left more than right. C6-7: Mild spurring at the endplates. Narrowed disc height. Normal central canal. Uncovertebral spur slightly narrowing the right intervertebral neural foramen. C7-T1: Normal endplates. Normal disc height and morphology. Normal central canal and intervertebral neuroforamina. Normal visualized soft tissue structures. CT/Spine Cervical without Contras IMPRESSION: Degenerative changes of the cervical spine. Electronically Signed: Siva Horton DO at 18:32 EST Reading Location ID and State: [facility] / [place] Tel [phone], Service support ,
[2024-12-05] MEDS: Lidocaine/Epi/Tetracaine 50 ML 1 APPLIC TOPICAL (18:22)
[2024-12-05] MEDS: Diphth,Pertuss(Acell),Tet Vac 0.5 ML Vial IM (18:22)
[2024-12-05 18:33] VITALS: BP 132/87; PULSE 74; RESP 16; O2SAT 99
[2024-12-05] MEDS: Lidocaine 1% /Epi 1:100 (20ml) 20 ML Vial 5 ML INFILT (18:50)
[2024-12-05 19:35] VITALS: BP 118/75; PULSE 67; RESP 18; TEMP 36.6; O2SAT 97
== END 2024-12-05 19:30 | disposition home or self-care (01) ==
PROVIDERS: Emergency Provider Emergency Medicine; PCP Family Medicine; Visit Provider Emergency Medicine
DX: S01.01XA Laceration without foreign body of scalp, initial encounter (principal); I48.0 Paroxysmal atrial fibrillation; E11.9 Type 2 diabetes mellitus without complications; Z79.4 Long term (current) use of insulin; S06.0X0A Concussion without loss of consciousness, initial encounter; I10 Essential (primary) hypertension; W19.XXXA Unspecified fall, initial encounter; E78.5 Hyperlipidemia, unspecified; Z87.891 Personal history of nicotine dependence; Z79.899 Other long term (current) drug therapy; Z79.84 Long term (current) use of oral hypoglycemic drugs; Z96.652 Presence of left artificial knee joint; Z85.828 Personal history of other malignant neoplasm of skin
CPT/HCPCS: 12013; 70450; 72125; 90715; 99285

== ENCOUNTER → 2024-12-10 | Outpatient (CLI) | payer MEDICARE, OTHER, SELFPAY ==
[2024-12-10 12:57] LABS: Microalbumin,Random Urine 17.7 mg/L (NO RANGE EST.)
== END | disposition home or self-care (01) ==
LOC: LABSPEC 11:16
PROVIDERS: PCP Family Medicine; Referring Provider Family Medicine; Visit Provider Family Medicine
DX: E11.9 Type 2 diabetes mellitus without complications (principal)
CPT/HCPCS: 82043; 82570

== ENCOUNTER → 2025-01-21 | Outpatient (CLI) | payer MEDICARE, OTHER, SELFPAY ==
--- NOTE | 2025-01-21 10:33 | RAD_ITS ---
EXAM: XR Chest, 2 Views CLINICAL INDICATION: TECHNIQUE: Frontal and lateral views of the chest. COMPARISON: No relevant prior studies available. FINDINGS: LUNGS AND PLEURAL SPACES: Unremarkable. No consolidation. No pneumothorax. HEART: Unremarkable. No cardiomegaly. MEDIASTINUM: Unremarkable. Normal mediastinal contour. BONES/JOINTS: Unremarkable. No acute fracture. RAD/Chest PA and Lateral IMPRESSION: No acute cardiopulmonary process. Reading Location: [facility]
== END | disposition home or self-care (01) ==
LOC: MTRAD 10:32
PROVIDERS: PCP Family Medicine; Referring Provider Family Medicine; Visit Provider Family Medicine
DX: J44.9 Chronic obstructive pulmonary disease, unspecified (principal)
CPT/HCPCS: 71046

== ENCOUNTER 2025-02-14 21:10 | Emergency (ER) | payer MEDICARE, OTHER, SELFPAY ==
[2025-02-14 21:12] VITALS: BP 137/60; PULSE 93; RESP 18; TEMP 36.3; O2SAT 92
--- NOTE | 2025-02-14 21:30 | CT_ITS ---
EXAM: BRAIN/HEAD WITHOUT CONTRAST CLINICAL HISTORY: 79-year-old male, fall, hit head on concrete. RADIATION DOSE SUMMARY: CTDlvol: 50 mGy DLP: 830 mGycm COMPARISON: CT head 12/05/2024. TECHNIQUE: Routine CT imaging of the head without IV contrast. Additional multiplanar reformats were obtained. Dose reduction techniques were used including intermediate exposure control (AEC),iterative reconstruction technique, and/or mA and/or KV dose adjustments based on patient's size. FINDINGS: Mild generalized cerebral volume loss with concordant prominence of the ventricles and subarachnoid spaces. Mild scattered supratentorial white matter hypodensities. The onofre-white matter interfaces are otherwise maintained. No acute intracranial hemorrhage or herniation. The orbits, visualized paranasal sinuses and mastoids are unremarkable. No acute calvarial fracture. Moderate-sized right upper posterior scalp hematoma. CT/Brain/Head without Contrast IMPRESSION: 1. No acute intracranial finding. 2. Moderate-sized right upper posterior scalp hematoma. 3. Findings of mild chronic microvascular ischemic change and age-related mijares e. Reading Location: [id number]
--- NOTE | 2025-02-14 21:30 | CT_ITS ---
PROCEDURE: SPINE CERVICAL WITHOUT CONTRAS 02/14/2025 REASON FOR EXAM: 79-year-old male, fall, hit head on concrete. TECHNIQUE: Cervical spine CT without contrast. Coronal and Sagittal reconstruction series were provided. One or more dose reduction techniques were used (e.g., Automated exposure control, adjustment of the mA and/or kV according to patient size, use of iterative reconstruction technique RADIATION DOSE SUMMARY: CTDlvol: 25 mGy DLP: 500 mGycm COMPARISON: CT C-spine 116 25. FINDINGS: Alignment: There is mild straightening of the normal cervical lordosis. No traumatic listhesis. Vertebrae: No acute osseous fracture. Mild chronic C5 and C6 vertebral body height loss. Multilevel degenerative disc disease. Soft Tissues: No prevertebral or subcutaneous hematoma. CT/Spine Cervical without Contras IMPRESSION: NO ACUTE CERVICAL FRACTURE. DEGENERATIVE CHANGES. Reading Location: [id number]
--- NOTE | 2025-02-14 21:31 | EX.ED.GENINJ ---
HPI History of Present Illness Chief Complaint: Head Injury Detail of Chief Complaint: Head injury Informant: patient Narrative Narrative: Patient presents after head injury tonight. Patient states that he had a loss his balance fell backwards while in the basement struck his head on the ground which is concrete. No loss of consciousness. Patient has history of Parkinson's and falls frequently. He is not anticoagulated. He also fell about 3 days ago and hit his head and hurt his neck but was not seen at that time. Patient has been ambulatory since the fall. He had noted some blood on his scalp earlier [facility] Medical History Parkinson's disease Right bundle branch block (RBBB) Obesity Type 2 diabetes mellitus Essential (primary) hypertension Cataract Back problem Arthritis HLD (hyperlipidemia) Paroxysmal atrial fibrillation Home Medications ?Medication ?Instructions ?Recorded ?Last Taken ?Type pravastatin 80 mg tablet 80 mg PO QDAY 04/06/18 Unknown History hydrochlorothiazide 12.5 mg tablet 12.5 mg PO DAILY 04/12/21 Unknown History fluticasone fur. 200 mcg-umeclid 1 inh inhalation DAILY 04/12/22 Unknown History 62.5 mcg-vilant 25 mcg inhalat.powder (Trelegy Ellipta) pantoprazole 40 mg tablet,delayed 40 mg PO DAILY 04/12/22 Unknown History release potassium chloride 10 mEq 20 meq PO DAILY 04/12/22 Unknown History tablet,extended release finasteride 5 mg tablet 5 mg PO DAILY 04/11/23 Unknown History alfuzosin 10 mg tablet,extended 10 mg PO DAILY 04/12/23 Unknown History release 24 hr cholecalciferol (vitamin D3) 25 50 mcg PO DAILY 04/12/23 Unknown History mcg (1,000 unit) capsule insulin aspart U-100 100 unit/mL See Rx Instructions .Route .COMPLEX 04/12/23 Unknown History subcutaneous solution (Novolog U-100 Insulin aspart) metformin 750 mg tablet,extended 750 mg PO QHS 04/12/23 Unknown History release 24 hr ascorbic acid (vitamin C) 1,000 mg 1 g PO DAILY 06/27/24 Unknown History capsule insulin glargine U-300 conc 300 60 unit subcut DAILY 06/27/24 Unknown History unit/mL (3 mL) subcutaneous pen (Toujeo Max U-300 SoloStar) zinc gluconate 30 mg tablet 30 mg PO DAILY 06/27/24 Unknown History hydrocodone-acetaminophen 5-325mg 1 tab PO Q6H PRN PRN Pain 4 days 10/12/24 Unknown Rx 5mg-325mg #15 TABLETS carbidopa 25 mg-levodopa 100 mg 2 tab PO .QID #720 tabs 12/11/24 Unknown Rx tablet donepezil 10 mg tablet 10 mg PO QHS #90 tabs 12/11/24 Unknown Rx donepezil 5 mg tablet 5 mg PO QHS #30 tabs 12/11/24 Unknown Rx propranolol 60 mg capsule,24 60 mg PO DAILY #90 caps 12/11/24 Unknown Rx hr,extended release doxepin 25 mg capsule 25 mg PO QHS #90 caps 12/19/24 Unknown Rx ropinirole 1 mg tablet 1 mg PO BID #180 tabs 02/06/25 Unknown Rx Allergy/AdvReac Type Severity Reaction Status Date / Time metoclopramide (From Reglan) Allergy Severe HYPER Verified 02/14/25 21:11 Family History Father Leukemia Surgical History History of total left knee replacement (TKR) History of left tennis elbow Hx of spinal fusion History of skin cancer Social History (Updated 02/14/25 @ 21:21 by Chayito Williamson) household members: spouse housing: house Smoking Status: Former smoker alcohol intake: never substance use type: does not use ROS ROS ED Review of Systems ROS Unobtainable: other Constitutional Constitutional ED: Reports lethargy; Denies chills, fever(s), sweats or weight loss Eyes Eyes: Denies blurry vision, change in vision or diplopia ENT ENT ED: Denies rhinorrhea or sore throat Cardiovascular Cardiovascular: Denies chest pain, orthopnea or racing heartbeat Respiratory/Chest Respiratory/Chest: Denies cough, dyspnea, dyspnea on exertion, orthopnea or sputum Gastrointestinal Gastrointestinal: Denies abdominal pain, diarrhea, nausea or vomiting Genitourinary Genitourinary ED: Denies dysuria, hematuria or urinary frequency Musculoskeletal Musculoskeletal: Reports neck pain; Denies arthralgias, back pain or myalgias Integumentary Denies abscess, Abrasions or rash Neurologic Neurologic: Reports headache(s); Denies weakness Psychiatric Psychiatric: Denies anxiety, depression or suicidal thoughts Endocrine Endocrinology: Denies polydipsia, polyphagia or polyuria Hematologic/Lymphatic Hematologic/Lymphatic: Denies easy bleeding, easy bruising or lymphadenopathy Allergic/Immunologic Allergic/Immunologic ED: Denies mouth swelling, tongue swelling or urticaria EXAM Physical Exam Const Vital Signs: 02/14/25 21:12 02/14/25 21:21 Temperature 97.3 F L Temperature Source Temporal Pulse Rate 93 Respiratory Rate 18 Respiratory Effort Normal Non-Labored Respiratory Depth Normal Respiratory Pattern Normal Blood Pressure 137/60 H Blood Pressure Mean 85 Pulse Ox 92 Oxygen Delivery Method Room Air Room Air Positive well nourished and well developed General Appearance ED: well developed and NAD HEENT Reports TM's clear and moist mucous membranes HEENT Narrative: Patient has hematoma to right posterior occiput with some superficial abrasions. No significant lacerations noted. No bony step-offs or depressions normocephalic and atraumatic; Negative for trauma or tenderness Tympanic Membrane ED: Yes TM's clear Eyes PERRL and EOMs intact bilaterally General Eye ED: Negative for pale conjunctiva or scleral icterus Neck no lymphadenopathy, supple and no JVD Neck Narrative: Mild diffuse tenderness. No bony step-offs or depressions. General: Negative for tenderness Chest Wall inspection of chest normal and palpation of chest normal Chest: Negative for tenderness Resp normal respiratory effort and clear to auscultation bilaterally Effort and Inspection: Negative for respiratory distress or pain with movement Auscultation: Negative for rhonchi, wheezes or diminished lung sounds Cardio regular rate, regular rhythm, S1 normal heart sound, S2 normal heart sound and no murmurs Peripheral Pulses: pulses 2+ throughout GI normal to inspection, nondistended, normoactive bowel sounds, soft to palpation, non-tender, non-distended and no masses Back/Spine no CVA tenderness and no thoracic nor lumbar tenderness Extremity normal to inspection General Extremety ED: Negative for edema General Extremity: Negative for edema Neuro oriented x3, CN's II-XII intact bilaterally, no sensory deficits noted and gait normal Sensorium / Orientation: awake, alert, oriented to person, oriented to place and oriented to time Motor Exam: strength 5/5 throughout and strength abnormal Psych mental status grossly normal Skin no rashes or lesions noted and no wounds MDM MDM MDM Narrative Medical decision making narrative: Patient presents with mechanical fall with head injury and complaint of neck pain. He is up-to-date on tetanus. Clinically has a large hematoma right posterior occiput. Patient has CT scan of the brain without contrast that showed a hematoma without evidence of skull fracture or intracranial hemorrhage. Patient also had CT of the cervical spine that showed no fractures. Patient has superficial abrasion over the hematoma on really no lacerations that would require any type of suturing. Patient will be discharged to home and advised to follow-up with primary care physician within next 3 to 5 days. Radiography Diagnostic Testing: Clinical Impression(s) from Imaging Studies Brain CT 02/14/25 21:30 IMPRESSION: 1. No acute intracranial finding. 2. Moderate-sized right upper posterior scalp hematoma. 3. Findings of mild chronic microvascular ischemic change and age-related change. Reading Location: [facility] Cervical Spine CT 02/14/25 21:30 IMPRESSION: NO ACUTE CERVICAL FRACTURE. DEGENERATIVE CHANGES. Reading Location: [facility] Discharge Plan Triage Chief Complaint: Head Injury ED Provider: Joe Soto Dx/Rx/DC Orders Clinical Impression: Fall, Closed head injury, Cervical strain Instructions: ED Scalp Contusion, ED Head Injury (Adult), ED Neck Sprain or Strain Prescriptions: No Action pravastatin 80 mg tablet 80 mg PO QDAY metformin 750 mg tablet extended release 24 hr 750 mg PO QHS insulin aspart U-100 [Novolog U-100 Insulin aspart] 100 unit/mL solution See Rx Instructions .ROUTE .COMPLEX Patient Comments: Sliding scale Rx Instructions: Sliding scale hydrochlorothiazide 12.5 mg tablet 12.5 mg PO DAILY Trelegy Ellipta 200-62.5-25 mcg blister with device 1 inh inhalation DAILY pantoprazole 40 mg tablet,delayed release (DR/EC) 40 mg PO DAILY potassium chloride 10 mEq tablet extended release 20 meq PO DAILY cholecalciferol (vitamin D3) 25 mcg (1,000 unit) capsule 50 mcg PO DAILY alfuzosin 10 mg tablet extended release 24 hr 10 mg PO DAILY Rx Instructions: administer after the same meal each day insulin glargine U-300 conc [Toujeo Max U-300 SoloStar] 300 unit/mL (3 mL) insulin pen 60 unit subcut DAILY finasteride 5 mg tablet 5 mg PO DAILY zinc gluconate 30 mg tablet 30 mg PO DAILY ascorbic acid (vitamin C) 1,000 mg capsule 1 g PO DAILY carbidopa-levodopa 25-100 mg tablet 2 tab PO .QID Qty: 720 1RF donepezil 5 mg tablet 5 mg PO QHS Qty: 30 0RF propranolol 60 mg capsule,extended release 24 hr 60 mg PO DAILY Qty: 90 1RF donepezil 10 mg tablet 10 mg PO QHS Qty: 90 1RF Rx Instructions: Begin after completing one month of treatment of donepezil 5mg nightly doxepin 25 mg capsule 25 mg PO QHS Qty: 90 1RF ropinirole 1 mg tablet 1 mg PO BID Qty: 180 0RF Rx Instructions: Begin after completing 1 week course of ropinirole 0.5 mg twice daily. hydrocodone-acetaminophen 5-325 mg tablet 1 tab PO Q6H PRN PRN (Reason: Pain) 4 Days Qty: 15 0RF Primary Care Provider: Ja Cooley Referrals: Ja Cooley MD [Primary Care Provider] - 3-5 Days Print Language: Lithuanian Disposition Disposition: Home, Self Care
== END 2025-02-14 22:54 | disposition home or self-care (01) ==
PROVIDERS: Emergency Provider Emergency Medicine; PCP Family Medicine; Visit Provider Emergency Medicine
DX: S16.1XXA Strain of muscle, fascia and tendon at neck level, initial encounter (principal); G20.A1 Parkinson's disease without dyskinesia, without mention of fluctuations; I48.0 Paroxysmal atrial fibrillation; E11.9 Type 2 diabetes mellitus without complications; Z79.4 Long term (current) use of insulin; E78.5 Hyperlipidemia, unspecified; Z87.891 Personal history of nicotine dependence; I10 Essential (primary) hypertension; S09.90XA Unspecified injury of head, initial encounter; W18.39XA Other fall on same level, initial encounter; Y92.89 Other specified places as the place of occurrence of the external cause; Z79.899 Other long term (current) drug therapy; Z79.84 Long term (current) use of oral hypoglycemic drugs; Z96.652 Presence of left artificial knee joint; Z85.828 Personal history of other malignant neoplasm of skin
CPT/HCPCS: 70450; 72125; 99282

== ENCOUNTER → 2025-02-20 | Outpatient (CLI) | payer MEDICARE, OTHER, SELFPAY ==
[2025-02-20 18:18] LABS: Hemoglobin A1c 7.1 % (<=5.6)
[2025-02-20 18:32] LABS: AST(SGOT) 13 U/L (<=37); Alanine Aminotransfer ALT/SGPT 7 U/L (<=46); Anion Gap 13 (5-15); BUN 19 mg/dL (4-19); Carbon Dioxide 21.9 mmol/L (21.0-32.0); Chloride 102 mmol/L (98-108); Creatinine, Serum 0.83 mg/dL (0.70-1.20); EST Glomerular Filtration Rate 89 (>60); Glucose 277 mg/dL (70-99); Potassium 4.1 mmol/L (3.3-5.1); Sodium Level 137 mmol/L (133-145)
[2025-02-20 20:17] LABS: Microalbumin,Random Urine 13.6 mg/L (NO RANGE EST.); Microalbumin:Creatinine Ratio 87.7 mg/g CRE
== END | disposition home or self-care (01) ==
LOC: MFPLAB 16:27
PROVIDERS: PCP Family Medicine; Visit Provider Internal Medicine Endocrinology, Diabetes & Metabolism
DX: E11.42 Type 2 diabetes mellitus with diabetic polyneuropathy (principal)
CPT/HCPCS: 36415; 80048; 82043; 82570; 83036; 84450; 84460

== ENCOUNTER → 2025-03-03 | Outpatient (CLI) | payer MEDICARE, OTHER, SELFPAY ==
[2025-03-03 15:15] LABS: Absolute Lymphocyte Count 4.51 X10^3/uL (0.83-4.51); Absolute Neutrophil Count 5.4 X10^3/uL (2.0-7.7); Basophil# 0.08 X10^3/uL; Basophil% 0.7 % (0-1); Eosinophil# 0.14 X10^3/uL; Eosinophils% 1.2 % (0-5); Hematocrit 44.2 % (40-54); Hemoglobin 14.5 g/dL (13.0-16.5); Lymphocyte # 4.51 X10^3/ul (0.83-4.51); Lymphocyte % 39.8 % (19-41); Mean Corp Hgb Conc 32.8 g/dL (32-36); Mean Corpuscular Hgb 30.3 pg (27.0-32.0); Mean Corpuscular Volume 92.3 fL (80-94); Mean Platelet Vol. 10.5 fl (6.2-12.0); Monocyte# 1.11 X10^3/uL; Monocyte% 9.8 % (0-10); NRBC Flagged by Analyzer 0 % (0-5); Neutrophil # 5.42 X10^3/uL (2.7-7.7); Platelet Count 339 K/mm3 (150-450); RBC Distribution Width CV 13.6 % (11.6-14.6); RBC Distribution Width SD 46.1 fl (35.1-43.9); Red Blood Count 4.79 M/mm3 (4.6-6.2); White Blood Count 11.3 K/mm3 (4.4-11.0)
== END | disposition home or self-care (01) ==
LOC: MFPLAB 13:31
PROVIDERS: PCP Family Medicine; Visit Provider Internal Medicine Pulmonary Disease
DX: J45.40 Moderate persistent asthma, uncomplicated (principal)
CPT/HCPCS: 36415; 85025

== ENCOUNTER → 2025-03-24 | Outpatient (CLI) | payer MEDICARE, OTHER, SELFPAY ==
--- NOTE | 2025-03-24 18:40 | CT_ITS ---
EXAM: CT Chest Without Intravenous Contrast CLINICAL INDICATION: ASTHMA TECHNIQUE: Axial computed tomography images of the chest without intravenous contrast. This CT exam was performed using one or more of the following dose reduction techniques: automated exposure control, adjustment of the mA and/or kV according to patient size, and/or use of iterative reconstruction technique. COMPARISON: No relevant prior studies available. FINDINGS: LUNGS AND PLEURAL SPACES: Lung emphysema/COPD with bibasilar atelectasis or scarring, greater on the left. No pneumothorax. No significant effusion. HEART: Unremarkable. No cardiomegaly. No significant pericardial effusion. No significant coronary artery calcifications. MEDIASTINUM: Scattered mediastinal lymph nodes some of which are upper limits of normal in size and are most likely reactive lymph nodes. Small esophageal hiatal hernia. BONES/JOINTS: Unremarkable. No acute fracture. No dislocation. SOFT TISSUES: Unremarkable. VASCULATURE: Scattered calcified atherosclerotic disease of aorta. No thoracic aortic aneurysm. LYMPH NODES: See above. CT/Chest without Contrast IMPRESSION: 1. Scattered mediastinal lymph nodes some of which are upper limits of normal in size and are most likely reactive lymph nodes. 2. Small esophageal hiatal hernia. 3. Continue low-dose CT scan of the chest in 12 months is recommended. 4. Lung emphysema/COPD with bibasilar atelectasis or scarring, greater on the left. Reading Location: [id number]
== END | disposition home or self-care (01) ==
LOC: CT 18:40
PROVIDERS: PCP Family Medicine; Referring Provider Internal Medicine Pulmonary Disease; Visit Provider Internal Medicine Pulmonary Disease
DX: J45.40 Moderate persistent asthma, uncomplicated (principal)
CPT/HCPCS: 71250

== ENCOUNTER 2025-04-03 14:03 | Outpatient (CLI) | payer MEDICARE, OTHER, SELFPAY ==
[2025-04-03 18:24] LABS: ALB/GLOB Ratio 1.4 RATIO (0.9-2.4); AST(SGOT) 17 U/L (<=37); Alanine Aminotransfer ALT/SGPT 5 U/L (<=46); Albumin, Serum 3.9 g/dL (3.4-4.8); Alkaline Phosphatase 79 U/L (40-129); Anion Gap 11 (5-15); BUN 16 mg/dL (4-19); BUN/Creat Ratio 20.8 RATIO (10-20); Calcium,Total 9.2 mg/dL (7.6-11.0); Carbon Dioxide 26.4 mmol/L (21.0-32.0); Chloride 104 mmol/L (98-108); Cholesterol 120 mg/dL (<=200); Creatinine, Serum 0.78 mg/dL (0.70-1.20); EST Glomerular Filtration Rate 90 (>60); Globulin 2.8 g/dL (2.2-4.2); Glucose 109 mg/dL (70-99); High Density Lipoprotein 46 mg/dL; Low Density Lipoprotein Calc. 47 mg/dL; Potassium 3.9 mmol/L (3.3-5.1); Protein, Total 6.6 g/dL (5.9-8.4); Sodium Level 142 mmol/L (133-145); Total Bilirubin 0.52 mg/dL (0.00-1.30); Triglycerides 135 mg/dL; Very Low Density Lipoprotein 27 mg/dL (5-40); Vitamin D,25 Hydroxy 39.2 ng/mL (30-100); cholesterol:hdl ratio screen 2.63
== END 2025-04-03 23:59 | disposition home or self-care (01) ==
LOC: MFPLAB 14:04
PROVIDERS: PCP Family Medicine; Referring Provider Family Medicine; Visit Provider Family Medicine
DX: E11.69 Type 2 diabetes mellitus with other specified complication (principal); E55.9 Vitamin D deficiency, unspecified
CPT/HCPCS: 36415; 80053; 80061; 82306

== ENCOUNTER 2025-04-09 11:18 | Emergency (ER) | payer MEDICARE, OTHER, SELFPAY ==
[2025-04-09 11:18] VITALS: BP 162/81; PULSE 75; RESP 18; TEMP 36.4; O2SAT 96; BMI 35.8
--- NOTE | 2025-04-09 11:34 | CT_ITS ---
EXAM: CT Head Without Intravenous Contrast CLINICAL INDICATION: TRAUMA TECHNIQUE: Axial computed tomography images of the head/brain without intravenous contrast. This CT exam was performed using one or more of the following dose reduction techniques: automated exposure control, adjustment of the mA and/or kV according to patient size, and/or use of iterative reconstruction technique. COMPARISON: No relevant prior studies available. FINDINGS: BRAIN AND EXTRA-AXIAL SPACES: Areas of decreased attenuation in the deep cerebral white matter are consistent with small vessel ischemic/degenerative changes. The cerebral and cerebellar sulci are prominent consistent with brain atrophy. No acute intracranial hemorrhage, midline shift or mass effect. If symptoms persist, further evaluation with MRI is recommended. BONES/JOINTS: Unremarkable. No acute fracture. SOFT TISSUES: Unremarkable. SINUSES: Unremarkable as visualized. No acute sinusitis. MASTOID AIR CELLS: Unremarkable as visualized. No mastoid effusion. OTHER FINDINGS: Prior 02/14/2025. CT/Brain/Head without Contrast IMPRESSION: 1. Small vessel ischemic/degenerative changes. 2. Generalized brain atrophy. 3. No acute intracranial hemorrhage, midline shift or mass effect. If symptoms persist, further evaluation with MRI is recommended. 4. No significant change from the prior exam. Reading Location: [facility]
--- NOTE | 2025-04-09 11:34 | CT_ITS ---
EXAM: CT Cervical Spine Without Intravenous Contrast CLINICAL INDICATION: TRAUMA TECHNIQUE: Axial computed tomography images of the cervical spine without intravenous contrast. This CT exam was performed using one or more of the following dose reduction techniques: automated exposure control, adjustment of the mA and/or kV according to patient size, and/or use of iterative reconstruction technique. COMPARISON: CT Cervical Spine dated 02/14/2025 FINDINGS: VERTEBRAE: Mild reversal cervical spine lordosis. Degenerative facet arthropathy throughout the cervical spine. No acute fracture. DISCS/SPINAL CANAL/NEURAL FORAMINA: Degenerative disc disease throughout the cervical spine. SOFT TISSUES: Unremarkable. CT/Spine Cervical without Contras IMPRESSION: 1. No acute fracture. 2. Degenerative changes of the cervical spine as described. Reading Location: [facility]
--- NOTE | 2025-04-09 11:36 | EX.ED.GENINJ ---
HPI History of Present Illness Chief Complaint: Head Injury Narrative Narrative: 79-year-old male past medical history of Parkinson's disease and chronic neck pain presents status post fall. He also has past medical history of diabetes. His daughter presents him because although he frequently falls, a few hours ago this morning, he fell and hit his head against a light switch. He denies loss of consciousness, no new neck pain. They checked his sugar recently and it was low at 66 so his daughter is making him eat. He is unsure of his last tetanus immunization. He denies other injury. He states he does not take blood thinners. Tetanus Immunization: <5 years [facility] Medical History Parkinson's disease Right bundle branch block (RBBB) Obesity Type 2 diabetes mellitus Essential (primary) hypertension Cataract Back problem Arthritis HLD (hyperlipidemia) Paroxysmal atrial fibrillation Home Medications ?Medication ?Instructions ?Recorded ?Last Taken ?Type pravastatin 80 mg tablet 80 mg PO QDAY 04/06/18 Unknown History fluticasone fur. 200 mcg-umeclid 1 inh inhalation DAILY 04/12/22 Unknown History 62.5 mcg-vilant 25 mcg inhalat.powder (Trelegy Ellipta) pantoprazole 40 mg tablet,delayed 40 mg PO DAILY 04/12/22 Unknown History release finasteride 5 mg tablet 5 mg PO DAILY 04/11/23 Unknown History alfuzosin 10 mg tablet,extended 10 mg PO DAILY 04/12/23 Unknown History release 24 hr cholecalciferol (vitamin D3) 25 50 mcg PO DAILY 04/12/23 Unknown History mcg (1,000 unit) capsule insulin aspart U-100 100 unit/mL See Rx Instructions .Route .COMPLEX 04/12/23 Unknown History subcutaneous solution (Novolog U-100 Insulin aspart) metformin 750 mg tablet,extended 750 mg PO QHS 04/12/23 Unknown History release 24 hr ascorbic acid (vitamin C) 1,000 mg 1 g PO DAILY 06/27/24 Unknown History capsule insulin glargine U-300 conc 300 60 unit subcut DAILY 06/27/24 Unknown History unit/mL (3 mL) subcutaneous pen (Toujeo Max U-300 SoloStar) zinc gluconate 30 mg tablet 30 mg PO DAILY 06/27/24 Unknown History hydrocodone-acetaminophen 5-325mg 1 tab PO Q6H PRN PRN Pain 4 days 10/12/24 Unknown Rx 5mg-325mg #15 TABLETS ropinirole 2 mg tablet 2 mg PO TID #270 tabs 03/20/25 Unknown Rx carbidopa 25 mg-levodopa 100 mg 2 tab PO .QID #720 tabs 03/31/25 Unknown Rx tablet doxepin 25 mg capsule 25 mg PO QHS #90 caps 03/31/25 Unknown Rx propranolol 60 mg capsule,24 60 mg PO DAILY #90 caps 03/31/25 Unknown Rx hr,extended release Allergy/AdvReac Type Severity Reaction Status Date / Time metoclopramide (From Reglan) Allergy Severe HYPER Verified 03/20/25 15:21 Family History Father Leukemia Surgical History History of total left knee replacement (TKR) History of left tennis elbow Hx of spinal fusion History of skin cancer Social History household members: spouse housing: house Smoking Status: Former smoker alcohol intake: never substance use type: does not use ROS ROS ED ROS Narrative Review of systems positive for fall without loss of consciousness. Sustained laceration to left front scalp. Abrasion on forehead from previous fall. No new neck pain. No other injury. Reported low blood sugar prior to arrival. EXAM Physical Exam Narrative Exam Narrative: GCS 15. ABCs intact. HEENT examination does show a 2 cm laceration on the left frontal scalp without active bleeding, no apparent galeal involvement. PERRL, EOMI. Neck without vertebral point tenderness or bony step-off. Cardiovascular examination regular rate and rhythm, lungs clear to auscultation bilaterally. Abdomen is soft, nontender, with positive bowel sounds. Neurological examination shows him to be awake, alert, oriented to person place and time, interactive, able to raise arms, currently eating a hamburger. Const Vital Signs: 04/09/25 11:18 04/09/25 11:28 Temperature 97.6 F L Temperature Source Temporal Pulse Rate 75 Respiratory Rate 18 Respiratory Effort Normal Respiratory Depth Normal Respiratory Pattern Normal Blood Pressure 162/81 H Blood Pressure Mean 108 Pulse Ox 96 Oxygen Delivery Method Room Air Room Air MDM MDM MDM Narrative Medical decision making narrative: The differential diagnosis includes but not limited to closed head injury versus intracranial hemorrhage versus skull fracture. He may also have a cervical spine fracture, but he has history of chronic pain. CT imaging obtained of the brain and of the cervical spine. I reviewed his prior records and his immunization/Tdap is current, given in November of this year. CT of the cervical spine and brain obtained and I reviewed the radiology reports, there is no acute intracranial hemorrhage noted, no significant change from prior exam, CT of the cervical spine shows no fracture but degenerative changes. Procedure note: Wound was cleansed using Shur-Clens and normal saline. Through exploration there is no apparent galeal involvement. The 2 cm laceration was closed using 5 surgical joel after lidocaine 1% was used as a local anesthetic via injection. Patient tolerated procedure well. At this point in time, I feel he can be discharged to follow-up with his primary care provider in 7 to 10 days for surgical staple removal. He was also told as well as his daughter that they are free to return to the emergency department. Return instructions to the emergency department were reviewed. Disposition is discharged home in stable condition. History & Record Review Discussion w/independent historian: Patient and Family Radiography Diagnostic Testing: Clinical Impression(s) from Imaging Studies Brain CT 04/09/25 11:34 IMPRESSION: 1. Small vessel ischemic/degenerative changes. 2. Generalized brain atrophy. 3. No acute intracranial hemorrhage, midline shift or mass effect. If symptoms persist, further evaluation with MRI is recommended. 4. No significant change from the prior exam. Reading Location: [facility] Cervical Spine CT 04/09/25 11:34 IMPRESSION: 1. No acute fracture. 2. Degenerative changes of the cervical spine as described. Reading Location: [facility] Discharge Plan Triage Chief Complaint: Head Injury ED Provider: Surya Dumont Dx/Rx/DC Orders Clinical Impression: Fall, Laceration of scalp Instructions: ED Head Injury (Adult), ED Laceration Scalp Stitches or Ojel Prescriptions: No Action pravastatin 80 mg tablet 80 mg PO QDAY metformin 750 mg tablet extended release 24 hr 750 mg PO QHS insulin aspart U-100 [Novolog U-100 Insulin aspart] 100 unit/mL solution See Rx Instructions .ROUTE .COMPLEX Patient Comments: Sliding scale Rx Instructions: Sliding scale Trelegy Ellipta 200-62.5-25 mcg blister with device 1 inh inhalation DAILY pantoprazole 40 mg tablet,delayed release (DR/EC) 40 mg PO DAILY cholecalciferol (vitamin D3) 25 mcg (1,000 unit) capsule 50 mcg PO DAILY alfuzosin 10 mg tablet extended release 24 hr 10 mg PO DAILY Rx Instructions: administer after the same meal each day insulin glargine U-300 conc [Toujeo Max U-300 SoloStar] 300 unit/mL (3 mL) insulin pen 60 unit subcut DAILY finasteride 5 mg tablet 5 mg PO DAILY zinc gluconate 30 mg tablet 30 mg PO DAILY ascorbic acid (vitamin C) 1,000 mg capsule 1 g PO DAILY ropinirole 2 mg tablet 2 mg PO TID Qty: 270 1RF carbidopa-levodopa 25-100 mg tablet 2 tab PO .QID Qty: 720 0RF doxepin 25 mg capsule 25 mg PO QHS Qty: 90 1RF propranolol 60 mg capsule,extended release 24 hr 60 mg PO DAILY Qty: 90 1RF hydrocodone-acetaminophen 5-325 mg tablet 1 tab PO Q6H PRN PRN (Reason: Pain) 4 Days Qty: 15 0RF Primary Care Provider: Ja Cooley Referrals: Ja Cooley MD [Primary Care Provider] - 10 Day for suture removal Activity Restrictions/Additional Instructions: Have joel removed by your primary care provider in 7 to 10 days. There were a total of 5 joel inserted. Return to the emergency department with fever, drainage of pus from wound, new or worsening symptoms. Print Language: Setswana Disposition Disposition: Home, Self Care
[2025-04-09] MEDS: Lidocaine 1% (20 ml mdv) 20 ML Vial INFILT (11:45)
[2025-04-09 13:13] VITALS: BP 145/65; PULSE 76; RESP 18; TEMP 36; O2SAT 98
== END 2025-04-09 13:15 | disposition home or self-care (01) ==
PROVIDERS: Emergency Provider Emergency Medicine; PCP Family Medicine; Referring Provider Emergency Medicine; Visit Provider Emergency Medicine
DX: S01.01XA Laceration without foreign body of scalp, initial encounter (principal); I48.0 Paroxysmal atrial fibrillation; E11.9 Type 2 diabetes mellitus without complications; Z79.4 Long term (current) use of insulin; E78.5 Hyperlipidemia, unspecified; I10 Essential (primary) hypertension; Z87.891 Personal history of nicotine dependence; W19.XXXA Unspecified fall, initial encounter; Z79.84 Long term (current) use of oral hypoglycemic drugs; Z79.899 Other long term (current) drug therapy; Z96.652 Presence of left artificial knee joint; Z85.828 Personal history of other malignant neoplasm of skin
CPT/HCPCS: 12001; 70450; 72125; 99283

== ENCOUNTER → 2025-05-09 | Outpatient (CLI) | payer MEDICARE, OTHER, SELFPAY ==
--- OUTSIDE RECORDS SUMMARY | 2025-05-09 18:38 | XMS RPT_ITS | CCD ---
Author Organization [facility] Inform ion Partnership [facility] Care Team Providers Care Tram Driver Name Role Phone Emigdio Crump (Historic) Primary Care Prov ider Patricia Mcgowan Primary Care Provider Unavailable Primary Care Provider Daniel Mcgowan MD, Patricia Ramon Primary Care Provider ABRB MORTON Attending Unavailab le JOLLIFF, PATRICIA RAMON Primary Care Unavailable SELENEBARB TUBBS Referring Unavailab le SELENE, BARB MAS Attending Unavailab le JOLLIFF, PATRICIA TRISTEN Primary Care Unavailable SELENEBARB Admitting Unavailab le JOLLIFF, PATRICIA [facility] Primary Care Unavailable SELENE, BARB MAS Attending Unavailab le SELENEBARB Referring Unavailab le JOLLIFFPATRICIA Referring Unavailable SELENE, BARB MAS Admitting Unavailab le SELENE, BARB MAS Attending Unavailab le SELENEBARB Referring Unavailab le JOLLIFF, PATRICIA TRISTEN Primary Care Unavailable SELENEBARB Admitting Unavailab SARAH Peace Attending Unavailable SELENEBARB Admitting Unavailab HARPAL Brody Attending Unavailable JOLLRADHA, PATRICIA [facility] Primary Care Unavailable SELENE, BARB MAS Referring Unavailab le SELENE, BARB MAS Attending Unavailab le JOLLIFF, PATRICIA TRISTEN Primary Care Unavailable SELENEBARB Referring Unavailab le JOLLIFF, PATRICIA [facility] Primary Care Unavailable SELENE, BARB MAS Attending Unavailab le SELENE, BARB MAS Referring Unavailab le JOLLIFF, PATRICIA [facility] Primary Care Unavailable JASPREET QURESHI Attending Unavailable Ron Cooley [place] Primary Care Provider Dr. Patricia Mcgowan Referring Provider Dr. Vladimir Sears Attending Provider Dr. Ron Cooley Primary Care Provider [phone] Dr. Silverio Amin Attending Provider Ron Cooley [place] Primary Care Provider [phone] Ron Cooley erma Primary Care Provider Ron Cooley [place] Primary Care Provider [phone] [facility] SPECIALIST.[employer] SOLUT[employer] ARCHITECT, Eriak K Unavailable Ron Cooley [place] Primary Care Provider [phone] [facility] REG[facility]AT[facility] AFFAIRS SPECIALIST.BI SOLUTIONS ARCHITECT, Erika K Unavailable [phone] REGULATORY AFFAIRS SPECIALIST.BI SOLUTIONS ARCHITECT, Tatiana Unavailable [phone] PATRICIA MCGOWAN Primary Care Unavailable LIZBETH, JAYLYN Attending Unavailable LENI RUIZ Attending Unavailable LIZBETH, JAYLYN Referring Unavailable [facility] Primary Care Unavailabl e LIZBETH, JAYLYN Referring Unavailable ALEIDA RAMIREZ Attending Unavailable [facility] Primary Care Unavailabl e LIZBETH, JAYLYN Attending Unavailable [facility] Primary Care Unavailabl e LIZBETH, JAYLYN Attending Unavailable LIZBETH, JAYLYN Referring Unavailable [facility] Primary Care Unavailabl e [facility] Primary Care Unavailabl e MAINE MEDEL Attending Unavailable LIZBETH, JAYLYN Referring Unavailable [facility] Primary Care Unavailabl e KORI RYDER Attending Unavailable LIZBETH, JAYLYN Referring Unavailable [facility] Primary Care Unavailabl e KORI RYDER Attending Unavailable LIZBETH, JAYLYN Referring Unavailable LIZBETH, JAYLYN Referring Unavailable [facility] Primary Care Unavailabl e BEBB KORI Attending Unavailable BEKORI WEEKS Attending Unavailable LIZBETH, JAYLYN Referring Unavailable [facility] Primary Care Unavailabl e [facility] Primary Care Unavailabl e LIZBETH, JAYLYN Referring Unavailable [facility] Primary Care JAYLYN Gonsalves Referring Unavailable Dr. Ron Cooley Primary Care Provider [phone] Dr. Ron Cooley Referring Provider Dr. Vick Santo Attending Provider Catalino ERNANDEZ, TERESAC Christel Attending Provider Dr. Vick Santo Referring Provider Dr. Vick Santo Other Provider Dr. Sofía Luu Attending Provider Dr. Ron Cooley Primary Care Provider Dr. Vick Santo Attending Provider Dr. Vick Santo Referring Provider Dr. Ron Cooley Referring Provider Dr. Ron Cooley Primary Care Provider Dr. Vick Santo Attending Provider Dr. Ron Cooley Primary Care Provider Dr. Ron Cooley Referring Provider Dr. Vick Santo Attending Provider Dr. Ron Cooley Primary Care Provider Dr. Ron Cooley Referring Provider Dr. Vick Santo Attending Provider Dr. Ron Cooley MD Primary Care Provider Dr. Osman Farooq MD Attending Provider Dr. Osman Farooq MD Emergency Provider Colt GARZA, Dr. Kaur Attending Provider Dr. Natasha Gregory MD Referring Provider Ana GARZA, Dr. Jose Michaels Attending Provider Dr. Jose Perez MD, V Referring Provider Lenora GARZA, Dr. Ron Deleon Attending Provider Lenora GARZA, Dr. Ron Deleon Referring Provider Dr. Estuardo Mccormack DO Attending Provider Easton MONTEJO, Dr. Marte Emergency Provider Chet GARZA, Dr. Hickman Attending Provider Lenora GARZA, Dr. Ron Deleon Primary Care Provider Charles MONTEJO, Dr. Diaz Emergency Provider Charles DO, Dr. Diaz Attending Provider Lenora GARZA, Dr. Ron Deleon Primary Care Provider [phone] Colt GARZA, Dr. Kaur Attending Provider Chet GARZA, Dr. Hickman Referring Provider Chet GARZA, Dr. Hickman Referring Provider COLT GARZA, NATASHA Castro Primary Care Unavailable LENORA GARZA, RON Attending Unavailable NATASHA GREGORY MD Primary Care Unavailable LENORA GARZA, RON Attending Unavailable Dr. Ron Cooley MD Primary Care Provider Dr. Ron Cooley MD Referring Provider Lenora GARZA, Dr. Ron Deleon Attending Provider Dr. Jose Perez MD, V Attending Provider [phone] Dr. Jose Perez MD, V Referring Provider [phone] Dr. Vick Santo MD Referring Provider Surya Dumont MD Referring Provider Surya Dumont MD Emergency Provider Ron Cooley MD Primary Care Provider RON COOLEY Primary Care Unavailable Chetan POWELL Attending Unavailable Ron Cooley Primary Care Unavailable Joe Soto Attending Unavailable Vick Santo Referring Unavailable Vick Santo Attending Unavailable Ron Cooley Primary Care Unavailable Estuardo Mccormack Attending Unavailable SchRon marcos E Primary Care Unavailable SchRon marcos Primary Care Unavailable Sibilia, Jose V Referring Unavailable Sibilia, Jose V Attending Unavailable SchRon marcos E Attending Unavailable SchRon marcos E Primary Care Unavailable SchRon marcos E Referring Unavailable Vick Santo Attending Unavailable SchRon marcos E Primary Care Unavailable SchRon marcos E Primary Care Unavailable ReodicSurya ríos Referring Unavailable ReodicaSurya Attending Unavailable SchRon marcos E Primary Care Unavailable Osman Farooq Attending Unavailable Natasha Gregory Referring Unavailable Natasha Gregory Attending Unavailable Ron Cooley Primary Care Unavailable SchRon marcos Primary Care Unavailable SchRon marcos Referring Unavailable SchRon marcos Attending Unavailable SchRon marcos E Primary Care Unavailable SchRon marcos Referring Unavailable SchRon marcos Attending Unavailable Whitley Kimball Referring Unavailable Whitley Kimball Attending Unavailable Ron Cooley E Primary Care Unavailable Natasha Gregory Referring Unavailable Natasha Gregory Attending Unavailable Ron Cooley Primary Care Unavailable Natasha Gregory Attending Unavailable Ron Cooley Primary Care Unavailable SchRon marcos Primary Care Unavailable Sibilia, Jose V Referring Unavailable SibiliaJose V Attending Unavailable Ron Cooley Referring Unavailable SchRon marcos E Primary Care Unavailable SchRon marcos Attending Unavailable Vick Santo Attending Unavailable Ron Cooley Referring Unavailable SchRon marcos Primary Care Unavailable Ron Cooley Referring Unavailable Vick Santo Attending Unavailable Ron Cooley E Primary Care Unavailable Ron Cooley Attending Unavailable SchRon marcos E Primary Care Unavailable SchRon marcos Referring Unavailable SchRon marcos Primary Care Unavailable SibJose ovalle V Attending Unavailable Ron Cooley E Primary Care Unavailable Vladimir Sears Attending Unavailable Ron Cooley E Referring Unavailable Vick Santo Attending Unavailable Ron Cooley E Primary Care Unavailable Ron Cooley Referring Unavailable Vick Santo Attending Unavailable Ron Cooley Primary Care Unavailable Ron Cooley Referring Unavailable Vick Santo Attending Unavailable Vick Santo Referring Unavailable SchRon marcos E Primary Care Unavailable SchRon marcos E Primary Care Unavailable Imer Gee Referring Unavailable Imer Gee Attending Unavailable Allergies Allergy Classification Reported Allergen(s) Allergy Type Date of Onset Reaction(s) Facility DOPamine Antagonists (3 sources) Metoclopramide Drug Allergy 03-01-20 18 Anxiety [facility] Unclassified (3 sources) Seasonal allergy Propensity to adverse reactions to substance 05-05-20 21 [facility] (12 sources) Metoclopramide; Translations: [METOCLOPRAMIDE HCL] Drug Allergy 10-05-20 [facility] (20 sources) Metoclopramide; Translations: [METOCLOPRAMIDE] Drug Allergy 08-25-20 Mental Status Change, Other [facility] Work Phone: Comment on above: anxiety (1 source) Metoclopramide Drug Allergy 03-20-20 [facility] Repository Medications Current Medications Medication Drug Class(es) Dates Sig (Normalized) Sig (Original) acetaminophen 325 mg / HYDROcodone bitartrate 5 mg oral tablet (8 sources) Opioid Agonist Start: 10-12-2024 take 1 tablet by mouth every six hours as needed for pain Hydrocodone-Aceta minophen 5-325 mg tablet Active 1 {tbl} PO EVERY 6 HOURS NEEDED as needed for Pain 15 October 12, 2024 Start: 02-05-2018 End: 05-05-2021 HYDROcodone-acetaminophen (N ORCO) 5-325 MG per tablet [id number] 200 actuat albuterol 0.09 mg/actuat metered dose inhaler (20 sources) beta2-Adrenergic Agonist Start: 09-06-2019 albut gris 90 mcg/actuation inhaler as needed . 0 09/06/2019 Active albuterol HFA (P ROVENTIL HFA, VENTOLIN HFA) 90 mcg/actuation inhaler Inhale 2 Puffs as instructed. 0 Active take 2 puff(s) by in halation every six hours as needed for wheezing albuterol sulfate HFA (VENTOLIN HFA) 108 (90 Base) MCG/ACT inhaler Inhale 2 puffs into the lungs every 6 hours as needed for Wheezing 0 Active End: 05-05-2021 ALBUTEROL SULFATE PO Take by mouth as needed 0 05/05/2021 Discontinued (LIST CLEANUP) Comment on above: Inhale 2 Puffs as in structed. 24 hr alfuzosin hydrochloride 10 mg extended release oral tablet (19 sources) alpha-Adrenergic Aravind Start: take 1 tablet by mouth once daily at mealtime Alfuzosin 10 mg tablet extended release 24 hr Active 10 mg PO DAILY April 12, 2023 12:00am administer after the same meal each day ascorbic acid 1000 mg oral capsule (7 sources) Vitamin C Start: take 1 g by mouth once daily Ascorbic Acid (Vitamin C) 1,000 mg capsule Active 1 g PO DAILY June 27, 2024 12:00am calcium chloride 0.0014 meq/ml / potassium chloride 0.004 meq/ml / sodium chloride 0.103 meq/ml / sodium lactate 0.028 meq/ml injectable solution (1 source) Start: lactated ringers infusion cholecalciferol 0.025 mg oral capsule (20 sources) Vitamin D Start: take 1 capsule by mouth once daily Cholecalciferol (Vitamin D3) 25 mcg (1,000 unit) capsule Active 50 ug PO DAILY April 12, 2023 10:21am Start: 04-12-2022 End: 04-12-2023 take 1 capsule by mouth twice daily Cholecalciferol (Vitamin D3) 25 mcg (1,000 unit) capsule Discontinued 25 ug PO TWICE A DAY April 12, 2022 12:00am April 12, 2023 10:25am cholecalciferol, vitamin D3, 125 mcg (5,000 unit) ODT Dissolve on top of tongue daily . 0 Active CPAP Machine MISC (3 sources) CPAP Machine MIS C by Does not apply route @@ bedtime 0 Active 1 ml diphenhydrAMINE hydrochloride 50 mg/ml cartridge (1 source) Histamine-1 Receptor Antagonist Start: End: diphenhydrAMINE (BENADRYL) injection 12.5 mg 250 ml DOBUTamine 1 mg/ml injection (1 source) beta-Adrenergic Agonist Start: DOBUTamine (DOBUTREX) 250 mg in dextrose 5 % 250 mL infusion doxepin hydrochloride 25 mg oral capsule (20 sources) Tricyclic Antidepressant Start: End: take 1 capsule by mouth at bedtime Doxepin 25 mg capsule Active 25 mg PO AT BEDTIME 90 March 31, 2025 9:06am Start: 06-17-2024 End: 12-11-2024 take 1 capsule by mouth at bedtime Doxepin 25 mg capsule Discontinued 25 mg PO AT BEDTIME July 01, 2024 4:36pm December 11, 2024 3:58pm 2 ml fentaNYL 0.05 mg/ml injection (2 sources) Opioid Agonist Start: 05-19-2021 fentaNYL (SUBL IMAZE) injection 50 mcg Start: 05-19-2021 fentaNYL (SUBL IMAZE) injection 25 mcg finasteride 5 mg oral tablet (20 sources) 5-alpha Reductase Inhibitor Start: 04-11-2023 take 1 tablet by mouth once daily Finasteride 5 mg tablet Active 5 mg PO DAILY April 11, 2023 12:00am Start: 10-07-2022 finasteride (P ROSCAR) 5 mg tablet 30 actuat fluticasone furoate 0.1 mg/actuat / umeclidinium 0.0625 mg/actuat / vilanterol 0.025 mg/actuat dry powder inhaler (14 sources) Anticholinergic, Corticosteroid, beta2-Adrenergic Agonist take 1 puff(s) by inhalation once daily vpmqsofpnup-nhujpszbk-bkljnefu (Trelegy Ellipta) 100-62.5-25 mcg DsDv Inhale 1 puff daily . 0 Active Fluticasone-Umec lidin-Vilanter (20 sources) Sta rt: Xammpuxywby-Nbidnypgj-Sixwot er (Trelegy Ellipta) 200-62.5-25 mcg blister with device Active 1 INH INHALATION DAILY April 12, 2022 9:33am Start: 04-12-2022 Fluticasone-Um eclidin-Vilanter (Trelegy Ellipta) 200-62.5-25 mcg blister with device Active 1 NMA INHALATION DAILY April 12, 2022 12:00am Start: 04-12-2022 Fluticasone-Um eclidin-Vilanter (Trelegy Ellipta) 200-62.5-25 mcg blister with device Active 1 INH INHALATION DAILY April 11, 2022 11:00pm Start: 05-24-2022 Fluticasone-Um eclidin-Vilanter (Trelegy Ellipta) 200-62.5-25 mcg blister with device Active 1 INH INHALATION DAILY April 12, 2022 12:00am gabapentin 300 mg oral capsule (15 sources) Anti-epileptic Agent Start: 12-30-2017 take 2 capsules by mouth once daily gabapentin (NEURONTIN) 300 MG capsule Take 600 mg by mouth daily . 0 12/30/2017 Active End: 03-17-2022 take 1 capsule by mouth once daily at bedtime gabapentin (NEURONTIN) 300 mg capsule Take 300 mg by mouth daily at bedtime. Take (2) capsules at bedtime 0 03/17/2022 Discontinued Comment on above: Take 300 mg by mouth daily at bedtime. Take (2) capsules at bedtime 1 ml hydrALAZINE hydrochloride 20 mg/ml injection (1 source) Arteriolar Vasodilator Start: 05-19-2021 hydrALAZINE (APRESOLINE) injection 5 mg 1 ml HYDROmorphone hydrochloride 1 mg/ml cartridge (2 sources) Opioid Agonist Start: 05-19-2021 HYDROmorphone (DILAUDID) injection 0.5 mg Start: 05-19-2021 HYDROmorphone (DILAUDID) injection 0.25 mg 3 ml insulin aspart protamine, human 70 unt/ml / insulin aspart, human 30 unt/ml pen injector (11 sources) Insulin Analog insulin aspart protamine-insulin aspart (NOVOLOG 70/30) 100 unit/mL (70-30) injection Inject 300 Units under the skin 3 (three) times a day . 0 Active 3 ml insulin glargine 300 unt/ml pen injector (20 sources) Insulin Analog Start: 06-27-2024 Insulin Glargine U-300 Conc (Toujeo Max U-300 Solostar) 300 unit/mL (3 mL) insulin pen Active 60 U SC DAILY June 27, 2024 3:16pm Start: 04-12-2023 End: 06-27-2024 Insulin Glargine U-300 Conc (Toujeo Max U-300 Solostar) 300 unit/mL (3 mL) insulin pen Discontinued 84 U SC DAILY April 12, 2023 12:00am June 27, 2024 3:20pm Start: 09-06-2019 insulin glargi ne U-300 conc (Toujeo Max U-300 SoloStar) 300 unit/mL (3 mL) InPn Inject 10 Units under the skin . 0 09/06/2019 Active insulin glargine U-300 conc (TOUJEO MAX U-300 SOLOSTAR) 300 unit/mL (3 mL) inpn Inject 88 Units subcutaneously. 0 Active Comment on above: Inject 10 Units subc utaneously. Inject 88 Units subc utaneously. insulin lispro 100 unt/ml injectable solution (1 source) Insulin Analog Start: 05-19-20 21 insulin lispro (HUMALOG) injection vial 0-28 Units labetalol hydrochloride 5 mg/ml injectable solution (1 source) beta-Adrenergic Aravind Start: 05-19-20 21 labetalol (NORMODYNE;TRANDAT E) injection 5 mg 10 ml lidocaine hydrochloride 10 mg/ml injection (1 source) Antiarrhythmic, Amide Local Anesthetic Start: 05-19-20 End: 05-19-20 lidocaine PF 1 % injection 1 mL 1 ml meperidine hydrochloride 25 mg/ml cartridge (1 source) Opioid Agonist Start: 05-19-20 21 meperidine (DEMEROL) injection 12.5 mg 24 hr metFORMIN hydrochloride 750 mg extended release oral tablet (20 sources) Biguanide Start: 04-12-20 23 take 1 tablet by mouth every twenty-four hours at bedtime Metformin 750 mg tablet extended release 24 hr Active 750 mg PO AT BEDTIME April 12, 2023 10:21am Start: 04-06-2018 End: 04-12-2023 Metformin 750 mg tablet exte nded release 24 hr Discontinued 1500 mg PO AT BEDTIME April 06, 2018 12:00am April 12, 2023 10:25am Start: 04-06-2018 End: 04-12-2023 take 1500 mg by mouth at bedtime Metformin Discontinued 1500 MG PO AT BEDTIME April 06, 2018 12:00am April 12, 2023 10:25am Start: 02-16-2018 metFORMIN (GLU COPHAGE-XR) 750 MG extended release tablet daily 0 02/16/2018 Active Comment on above: Take 750 mg by mouth daily with breakfast. NONFORMULARY (14 sources) NONFORMULARY AM for * days . 0 Active NONFORMULARY Kilo keara 150 Units in morning 0 Active 2 ml ondansetron 2 mg/ml injection (1 source) Serotonin-3 Receptor Antagonist Start: 05-19-2021 End: 05-19-2021 ondansetron (ZOFRAN) injection 4 mg oxyCODONE (1 source) Opioid Agonist Start: 05-19-2021 End: 05-19-2021 oxyCODONE (ROXICODONE) immediate release tablet 5 mg Oxygen (3 sources) OXYGEN Inhale in to the lungs 2 liters @@hs 0 Active pantoprazole 40 mg delayed release oral tablet (20 sources) Proton Pump Inhibitor Start: 09-06-2019 take 1 tablet by mouth once daily Pantoprazole 40 mg tablet,delayed release (DR/EC) Active 40 mg PO DAILY April 12, 2022 12:00am Comment on above: Take 40 mg by mouth once daily. pravastatin sodium 80 mg oral tablet (20 sources) HMG-CoA Reductase Inhibitor Start: 06-07-2013 take 1 tablet by mouth once daily Pravastatin 80 mg tablet Active 80 mg PO daily April 06, 2018 12:00am Comment on above: Take 80 mg by mouth once daily. 1 ml promethazine hydrochloride 25 mg/ml injection (1 source) Phenothiazine Start: 05-19-2021 End: 05-19-2021 promethazine (PHENERGAN) injection 6.25 mg QUEtiapine 25 mg oral tablet (2 sources) Atypical Antipsychotic Start: 12-21-2021 End: 12-21-2022 take 1 tablet by mouth once daily QUEtiapine (SEROQUEL) 25 MG tablet Take 1 (one) tablet (25 mg total) by mouth nightly . 90 tablet 3 12/21/2021 12/21/2022 Active rOPINIRole 2 mg oral tablet (15 sources) Nonergot Dopamine Agonist Start: 03-20-2025 take 1 tablet by mouth three times daily Ropinirole 2 mg tablet Active 2 mg PO THREE TIMES A DAY March 20, 2025 12:00am Start: 02-06-2025 End: 02-13-2025 take 1 tablet by mouth twice daily Ropinirole 0.5 mg tablet Discontinued 0.5 mg PO TWICE A DAY 14 7 February 06, 2025 12:00am February 12, 2025 12:00am February 13, 2025 12:12am Start: 02-06-2025 End: 03-20-2025 take 1 tablet by mouth twice daily, then take 0.5 mg by mouth twice daily Ropinirole 1 mg tablet Discontinued 1 mg PO TWICE A DAY 180 February 06, 2025 12:00am March 20, 2025 3:51pm Begin after completing 1 week course of ropinirole 0.5 mg twice daily. 3 ml sodium chloride 9 mg/ml injection (4 sources) Start: 05-19-2021 End: 05-19-2021 0.9 % sodium chloride bolus Start: 05-19-2021 0.9 % sodium c hloride infusion Start: 05-19-2021 sodium chlorid e flush 0.9 % injection 5-40 mL UNABLE TO FIND (20 sources) UNABLE TO FIND b y NOT APPLICABLE route at bedtime CPAP Machine MISC . 0 Active UNABLE TO FIND I nject as directed every 30 (thirty) days Cyanocobalamin (B-12 COMPLIANCE INJECTION IJ) . 0 Active VITAMIN D PO (3 sources) VITAMIN D PO Graeme e by mouth 2 times daily 0 Active zinc gluconate 30 mg oral tablet (7 sources) Start: 06-27-2024 take 1 tablet by mouth once daily Zinc Gluconate 30 mg tablet Active 30 mg PO DAILY June 27, 2024 12:00am Completed/Discontinued Medications Medication Drug Class(es) Dates Sig (Normalized) Sig (Original) acetaminophen 500 mg oral tablet (1 source) Start: 05-19-2021 End: 05-19-2021 acetaminophen (TYLENOL) tablet 1,000 mg Start: 05-19-2021 End: 05-19-2021 acetaminophen (TYLENOL) tabl et 1,000 mg acetaminophen 325 mg / oxyCODONE hydrochloride 5 mg oral tablet (20 sources) Opioid Agonist Start: 04-12-2022 End: 04-11-2023 Oxycodone-Acetaminophen 5-32 5 mg tablet Discontinued NMA PO April 12, 2022 12:00am April 11, 2023 10:04am Start: 04-12-2022 End: 04-11-2023 Oxycodone-Acetaminophen Disc ontinued TAB PO April 12, 2022 12:00am April 11, 2023 10:04am End: 12-12-2022 take 1 tablet by mouth twice daily oxyCODONE-acetaminophen 5-325 mg (PERCOCET) Take 1 tablet by mouth twice daily. 0 12/12/2022 Discontinued take 1 tablet by ramona th twice daily oxyCODONE-acetaminophen 5-325 mg (PERCOCET) Take 1 tablet by mouth twice daily. 0 Active take 1 tablet by ramona th three times daily oxyCODONE-acetaminophen (PERCOCET) 5-325 mg per tablet Take 1 tablet by mouth 3 (three) times a day . 0 Active take 1 tablet by ramona th every four hours as needed for pain oxyCODONE-acetaminophen (PERCOCET) 5-325 MG per tablet Take 1 tablet by mouth every 4 hours as needed for Pain. 0 Active Comment on above: Take 1 tablet by ramona th twice daily. albuterol 0.833 mg/ml / ipratropium bromide 0.167 mg/ml inhalation solution (1 source) Anticholinergic, beta2-Adrenergic Agonist End: 05-05-20 21 take 1 dose by inhalation every four hours ipratropium-albuter ol (DUONEB) 0.5-2.5 (3) MG/3ML SOLN nebulizer solution Inhale 1 vial into the lungs every 4 hours 0 05/05/2021 Discontinued (LIST CLEANUP) ALPRAZolam 0.5 mg oral tablet (20 sources) Benzodiazepine Start: 01-29-20 22 End: 04-12-20 22 take 1 tablet by mouth at bedtime as needed Alprazolam (Xanax) 0.5 mg tablet Discontinued 0.5 mg PO AT BEDTIME as needed for insomnia January 28, 2022 1:00am April 12, 2022 9:36am Start: 05-19-2021 ALPRAZolam (NI RAVAM) dissolvable tablet 0.25 mg amoxicillin 875 mg / clavulanate 125 mg oral tablet (20 sources) Penicillin-class Antibacterial Start: 10-04-2017 End: 04-06-2018 take 1 tablet by mouth every twelve hours Amoxicillin-Pot Clavulanate 875 MG tablet Discontinued 875 mg PO Q12H October 04, 2017 1:00am April 06, 2018 11:55am Start: 10-04-2017 End: 04-06-2018 Amoxicillin-Pot Clavulanate 1 EACH tablet Discontinued 1 NMA PO TWICE A DAY October 04, 2017 1:00am April 06, 2018 11:56am Start: 10-04-2017 End: 04-06-2018 Amoxicillin-Pot Clavulanate Discontinued 1 EACH PO TWICE A DAY October 04, 2017 1:00am April 06, 2018 11:56am aspirin 81 mg delayed release oral tablet (20 sources) Platelet Aggregation Inhibitor, Nonsteroidal Anti-inflammatory Drug Start: 06-07-2013 End: 06-27-2024 Aspirin (Adult Low Dose Aspirin) 81 mg tablet,delayed release (DR/EC) Discontinued 81 mg PO daily April 06, 2018 12:00am June 27, 2024 3:19pm End: 12-12-2022 aspirin 81 mg chewable table t Take 81 mg by mouth. 0 12/12/2022 Discontinued take 1 tablet by ramona th once daily aspirin 81 MG tablet Take 81 mg by mouth daily 0 Active Comment on above: Take 81 mg by mouth once daily. Take 81 mg by mouth. busPIRone hydrochloride 5 mg oral tablet (20 sources) Start: 09-02-2024 End: 12-11-2024 take 1 tablet by mouth three times daily Buspirone 5 mg tablet Discontinued 5 mg PO THREE TIMES A DAY 270 September 02, 2024 12:00am December 11, 2024 3:58pm Start: 05-10-2023 End: 08-07-2023 take 1 tablet by mouth twice daily Buspirone 5 mg tablet Discontinued 5 mg PO TWICE A DAY 180 June 05, 2023 5:12pm August 07, 2023 3:29pm carbidopa 25 mg / levodopa 100 mg oral tablet (20 sources) Aromatic Amino Acid Decarboxylation Inhibitor, Aromatic Amino Acid Start: 08-14-2023 End: 03-31-2025 Carbidopa-Levodopa 25-100 mg tablet Discontinued 2 {tbl} PO .QID 720 February 13, 2024 5:04pm March 27, 2024 11:31am Start: 08-14-2023 End: 03-27-2024 take 2 tablets by mouth four times daily Carbidopa-Levodopa Active 2 TABLET PO .QID 720 March 27, 2024 11:29am Start: 04-12-2023 End: 08-14-2023 Carbidopa-Levodopa 25-100 mg tablet Discontinued 2 {tbl} PO THREE TIMES A DAY 540 August 07, 2023 3:29pm August 14, 2023 5:15pm Start: 04-12-2023 End: 08-14-2023 take 2 tablets by mouth three times daily Carbidopa-Levodopa Discontinued 2 TABLET PO THREE TIMES A DAY 540 August 07, 2023 2:29pm August 14, 2023 4:15pm Start: 04-12-2022 take 1.5 tablets by mouth three times daily Carbidopa-Levodopa Active 1.5 TABLET PO THREE TIMES A DAY April 12, 2022 9:33am Start: 04-12-2022 End: 04-12-2023 Carbidopa-Levodopa 25-100 mg tablet Discontinued 1.5 {tbl} PO THREE TIMES A DAY April 12, 2022 12:00am April 12, 2023 10:25am Start: 04-12-2022 End: 04-12-2023 take 1.5 tablets by mouth three times daily Carbidopa-Levodopa Discontinued 1.5 TABLET PO THREE TIMES A DAY April 11, 2022 11:00pm April 12, 2023 9:25am Start: 04-12-2022 End: 04-12-2023 take 1.5 tablets by mouth three times daily Carbidopa-Levodopa Discontinued 1.5 TABLET PO THREE TIMES A DAY April 12, 2022 12:00am April 12, 2023 10:25am Start: 04-12-2022 take 1.5 tablets by mouth three times daily Carbidopa-Levodopa Active 1.5 TABLET PO THREE TIMES A DAY April 11, 2022 11:00pm Start: 04-12-2022 take 1.5 tablets by mouth three times daily Carbidopa-Levodopa Active 1.5 TABLET PO THREE TIMES A DAY April 12, 2022 12:00am Start: 11-05-2021 End: 12-21-2022 take 2 tablets by mouth three times daily carbidopa-levodopa (SINEMET 25-100) 25-100 mg per tablet Take 2 tablets by mouth three times daily. 540 tablet 3 05/18/2022 Active Comment on above: Take 2 tablets by mo ut three times daily. cephalexin 500 mg oral capsule (4 sources) Cephalosporin Antibacterial Start: End: take 500 mg by mouth once 500 mg, Oral, Once, On 04/13/25 at 2145, For 1 dose, Suspected Indication (Select all that apply): Skin and Soft Tissue Infection Start: 04-13-2025 End: 04-20-2025 take 1 capsule by mouth twice daily cephalexin (Keflex) 500 MG capsule Take 1 capsule (500 mg) by mouth 2 times daily for 7 days. 14 capsule 04/13/2025 04/20/2025 Active cetirizine hydrochloride 10 mg oral tablet (1 source) Histamine-1 Receptor Antagonist Start: 02-27-2018 End: 05-05-2021 cetirizine (ZYRTEC) 10 MG tablet daily 0 02/27/2018 05/05/2021 Discontinued (LIST CLEANUP) cholecalciferol, vitamin D3, (VITAMIN D3 50 MCG, 2,000 UNIT, GUMMIES) (19 sources) cholecalciferol, vitamin D3, (VITAMIN D3 50 MCG, 2,000 UNIT, GUMMIES) donepezil hydrochloride 5 mg oral tablet (14 sources) Start: 12-11-2024 End: 03-20-2025 take 1 tablet by mouth once daily at bedtime Donepezil 10 mg tablet Discontinued 10 mg PO AT BEDTIME December 11, 2024 1:00am March 20, 2025 3:51pm Begin after completing one month of treatment of donepezil 5mg nightly Start: 12-11-2024 End: 03-20-2025 take 1 tablet by mouth at bedtime Donepezil 5 mg tablet Discontinued 5 mg PO AT BEDTIME December 11, 2024 1:00am March 20, 2025 3:52pm DULoxetine 30 mg delayed release oral capsule (20 sources) Serotonin and Norepinephrine Reuptake Inhibitor Start: 09-15-2022 End: 09-16-2023 take 1 capsule by mouth once daily DULoxetine (CYMBALTA) 30 mg capsule Take 1 capsule by mouth once daily. 90 capsule 3 09/15/2022 09/16/2022 Discontinued Start: 03-17-2022 End: 04-11-2023 take 1 capsule by mouth once daily Duloxetine 20 mg capsule,delayed release(DR/EC) Discontinued 20 mg PO DAILY April 12, 2022 12:00am April 11, 2023 10:02am Comment on above: Take 1 capsule by [facility] once daily. EPINEPHrine 0.01 mg/ml / lidocaine hydrochloride 10 mg/ml injectable solution (2 sources) Antiarrhythmic, alpha-Adrenergic Agonist, beta-Adrenergic Agonist, Catecholamine, Amide Local Anesthetic Start: 04-13-2025 End: 04-13-2025 10 mL, Infiltration, Once, On 04/13/25 at 2100, For 1 dose famotidine 20 mg oral tablet (1 source) Histamine-2 Receptor Antagonist Start: 05-19-2021 End: 05-19-2021 famotidine (PEPCID) tablet 20 mg Start: 05-19-2021 End: 05-19-2021 famotidine (PEPCID) tablet 2 0 mg fluticasone txyvrfp-zhrkdhodlvrr-pnpazsdxwf (TRELEGY ELLIPTA) 200-62.5-25 mcg powder inhaler (12 sources) take 1 puff(s) by inhalation once daily fluticasone zhnwomp-vrjjlprvdekm-izvpcbdosn (TRELEGY ELLIPTA) 200-62.5-25 mcg powder inhaler Inhale 1 Puff as instructed once daily. 0 Active Comment on above: Inhale 1 Puff as ins tructed once daily. FREESTYLE CALIXTO 2 SENSOR kit (4 sources) S t a r t : 0 1 - 0 6 - 2 0 2 3 FREESTYLE CALIXTO 2 SENSOR kit use to TEST BLOOD SUGAR as directed CHANGE EVERY 14 DAYS 0 11/25/2022 Active Comment on above: use to TEST BLOOD COCHRAN GAR as directed CHANGE EVERY 14 DAYS glimepiride 4 mg oral tablet (20 sources) Sulfonylu viviana S t a r t : 0 7 - 1 9 - 2 0 1 3 E n d : 0 5 - 2 4 - 2 0 2 1 take 1 tablet by mouth twice daily Glimepiride 4 mg tablet Discontinued 4 mg PO TWICE A DAY April 06, 2018 12:00am April 12, 2021 9:02am hydroCHLOROthiazide 12.5 mg oral tablet (20 sources) Thiazide Diuretic S t a r t : 0 5 - 2 4 - 2 0 2 1 E n d : 0 5 - 0 1 - 2 0 2 5 take 1 tablet by mouth once daily Hydrochlorothiazide 12.5 mg tablet Discontinued 12.5 mg PO DAILY April 12, 2021 12:00am March 20, 2025 3:52pm Start: 04-06-2018 End: 04-11-2019 take 1 tablet by mouth once daily Hydrochlorothiazide 25 mg tablet Discontinued 25 mg PO daily April 06, 2018 12:00am April 11, 2019 11:43am Start: 02-16-2018 hydroCHLOROthi azide (HYDRODIURIL) 25 MG tablet Take 12.5 mg by mouth daily . 0 02/16/2018 Active Comment on above: Take 12.5 mg by mout h once daily. hydroCHLOROthiazide 12.5 mg / telmisartan 40 mg oral tablet (20 sources) Thiazide Diuretic, Angiotensin 2 Receptor Aravind Start: 04-12-2022 End: 04-11-2023 Telmisartan-Hydrochlor othiazid 40-12.5 mg tablet Discontinued 1 {tbl} PO DAILY April 12, 2022 12:00am April 11, 2023 10:40am Start: 04-12-2022 End: 04-11-2023 take 1 tablet by mouth once daily Telmisartan-Hydrochlorothiazid Discontin ued 1 TABLET PO DAILY April 12, 2022 12:00am April 11, 2023 10:40am Start: 09-26-2019 telmisartan-hy drochlorothiazide (MICARDIS HCT) 40-12.5 mg per tablet Take by mouth daily . 0 09/26/2019 Active hydrOXYzine hydrochloride 25 mg oral tablet (20 sources) Antihistamine Start: 01-31-2022 End: 04-11-2023 take 1 tablet by mouth at bedtime Hydroxyzine Hcl 25 mg tablet Discontinued 25 mg PO AT BEDTIME April 12, 2022 12:00am April 11, 2023 10:03am Comment on above: Take 25 mg by mouth daily at bedtime. insulin aspart, human 100 unt/ml injectable solution (20 sources) Insulin Analog Start: 12-18-2017 NOVOLOG FLEXPEN 100 UNIT/ML injection pen Indications: 15 min before eating 22 Units Indications: 15 min before eating 22 U in morning, 34U at lunch, 36U at dinner 0 12/18/2017 Active Start: 05-01-2014 End: 04-12-2023 inject 22 [IU] by subcutaneous injection three times daily before mealtime Insulin Aspart U-100 (Novolog U-100 Insulin Aspart) 100 unit/mL solution Discontinued 0 .ROUTE .COMPLEX April 06, 2018 12:00am April 12, 2023 10:33am 22 units Sub-Q TID before meals insulin aspart ( NOVOLOG FLEXPEN U-100 INSULIN SUBCUTANEOUS) Inject 300 Units subcutaneously. 0 Active Comment on above: Inject 300 Units sub cutaneously. insulin detemir 100 unt/ml injectable solution (20 sources) Insulin Analog Start: 04-12-2023 End: 06-27-2024 Insulin Detemir U-100 (Levemir U-100 Insulin) 100 unit/mL solution Discontinued 84 U SC EVERY MORNING April 12, 2023 10:23am June 27, 2024 3:19pm Start: 04-06-2018 End: 04-12-2023 inject 80 [IU] by subcutaneous injection in the morning Insulin Detemir U-100 (Levemir U-100 Insulin) 100 unit/mL solution Discontinued 0 .ROUTE .COMPLEX April 06, 2018 12:00am April 12, 2023 10:25am 80 units Sub-Q in the morning; 75 units Sub-Q in the evening Start: 01-23-2018 End: 05-05-2021 LEVEMIR FLEXTOUCH 100 UNIT/M L injection pen 150 Units every morning 0 01/23/2018 05/05/2021 Discontinued (LIST CLEANUP) ipratropium bromide 0.021 mg/actuat metered dose nasal spray (20 sources) Anticholinergic Start: 04-06-2018 End: 04-11-2019 Ipratropium [place] 0.03 % spray,non-aerosol Discontinued 2 NMA INTRANASAL 2 to 3 times per day as needed April 06, 2018 12:00am April 11, 2019 11:44am Start: 04-06-2018 End: 04-11-2019 Ipratropium [place] Disconti nued 2 SPRAY INTRANASAL 2 to 3 times per day April 06, 2018 12:00am April 11, 2019 11:44am istradefylline 20 mg oral tablet (13 sources) Start: 11-23-2023 End: 06-27-2024 take 1 tablet by mouth once daily Istradefylline (Nourianz) 20 mg tablet Discontinued 20 mg PO DAILY November 23, 2023 1:00am June 27, 2024 3:20pm losartan potassium 50 mg oral tablet (9 sources) Angiotensin 2 Receptor Aravind End: 12-12-2022 take 1 tablet by mouth once daily losartan (COZAAR) 50 mg tablet Take 50 mg by mouth once daily. 0 12/12/2022 Discontinued Comment on above: Take 50 mg by mouth once daily. magnesium oxide 400 mg oral tablet (20 sources) Start: 04-06-2018 End: 04-10-2018 take 1 tablet by mouth once daily Magnesium Oxide 400 mg tablet Discontinued 400 mg PO daily April 06, 2018 12:00am April 10, 2018 9:27am 24 hr metFORMIN hydrochloride 1000 mg / sAXagliptin 5 mg extended release oral tablet (20 sources) Biguanide, Dipeptidyl Peptidase 4 Inhibitor Start: 04-06-2018 End: 04-11-2023 take 5-1000 mg by mouth every twenty-four hours Saxagliptin-Metformi n (Kombiglyze Xr) 5-1,000 mg tablet, ER multiphase 24 hr Discontinued 1 {tbl} PO daily April 06, 2018 12:00am April 11, 2023 10:36am Start: 02-17-2018 End: 05-05-2021 KOMBIGLYZE XR 5-1000 MG TB24 daily 0 02/17/2018 05/05/2021 Discontinued (LIST CLEANUP) 24 hr metoprolol succinate 50 mg extended release oral tablet (20 sources) beta-Adrenergic Aravind Start: 02-16-2018 End: 05-05-2021 take 1 tablet by mouth once daily Metoprolol Succinate (Toprol Xl) 50 mg tablet extended release 24 hr Discontinued 50 mg PO daily February 18, 2019 8:39am April 12, 2021 9:04am mirtazapine 45 mg oral tablet (20 sources) Start: 03-27-2024 End: 09-02-2024 take 1 tablet by mouth at bedtime Mirtazapine 45 mg tablet Discontinued 45 mg PO AT BEDTIME March 27, 2024 12:00am September 02, 2024 1:52pm Start: 09-06-2023 End: 03-27-2024 take 1 tablet by mouth at bedtime Mirtazapine 30 mg tablet Discontinued 30 mg PO AT BEDTIME February 13, 2024 5:04pm March 27, 2024 11:29am Start: 08-07-2023 End: 09-06-2023 take 1 tablet by mouth at bedtime Mirtazapine 15 mg tablet Discontinued 15 mg PO AT BEDTIME 90 August 24, 2023 9:09am September 06, 2023 4:44pm OXYGEN-AIR DELIVERY SYSTEMS MISC (15 sources) OXYGEN-AIR DELIV DENY SYSTEMS MISC Inhale as instructed. 0 Active OXYGEN-AIR DELIV DENY SYSTEMS MISC Inhale nightly . 0 Active Comment on above: Inhale as instructed . PARoxetine hydrochloride 10 mg oral tablet (20 sources) Serotonin Reuptake Inhibitor Start: End: take 1 tablet by mouth once daily Paroxetine Hcl 10 mg tablet Discontinued 10 mg PO daily April 06, 2018 12:00am April 12, 2022 9:35am Start: 06-07-2013 End: 03-17-2022 take 1 tablet by mouth once daily PARoxetine (PAXIL) 20 MG tablet Take 20 mg by mouth daily . 0 06/07/2013 Active Comment on above: Take 20 mg by mouth once daily. perflutren lipid microspheres (DEFINITY) injection 1.65 mg (1 source) Start: 05-11-2021 End: 05-11-2021 perflutren lipid microspheres (DEFINITY) injection 1.65 mg potassium chloride 10 meq extended release oral tablet (20 sources) Start: 04-12-2022 End: 03-20-2025 take 2 tablets by mouth once daily Potassium Chloride 10 mEq tablet extended release Discontinued 20 meq PO DAILY April 12, 2022 12:00am March 20, 2025 3:52pm Start: 04-12-2022 take 20 mEq by mouth once daily Potassium Chloride Active 20 MEQ PO DAILY April 12, 2022 12:00am Start: 02-16-2018 potassium chlo ride ER (KLOR-CON M20) 20 mEq tablet once daily. 0 02/16/2018 Active Start: 06-07-2013 End: 04-12-2022 take 20 mEq by mouth once daily Potassium Chloride 20 mEq packet Discontinued 20 meq PO daily April 06, 2018 12:00am April 12, 2022 9:35am End: 05-05-2021 take 10 mEq by mouth twice daily POTASSIUM CHLORIDE PO Take 10 mEq by mouth 2 times daily 0 05/05/2021 Discontinued (LIST CLEANUP) Comment on above: once daily. primidone 50 mg oral tablet (1 source) Anti-epileptic Agent Start: 1 End: 2 take 0.5 tablet by mouth once daily at bedtime, then take 1 tablet by mouth once daily at bedtime, then take 1.5 tablets by mouth once daily at bedtime, then take 2 tablets by mouth once daily at bedtime, then take 2.5 tablets by mouth once daily at bedtime, then take 3 tablets by mouth once daily at bedtime primidone (MYSOLINE) 50 mg tablet Take 0.5 tablets by mouth daily at [...] increasing the dose if tremors are controlled. 90 tablet 11 08/30/2021 03/17/2022 Discontinued Comment on above: Take 0.5 tablets by mouth daily at [...] increasing the dose if tremors are controlled. 24 hr propranolol hydrochloride 60 mg extended release oral capsule (20 sources) beta-Adrenergic Aravind Start: 3 End: 5 take 1 capsule by mouth once daily Propranolol 60 mg capsule,extended release 24 hr Discontinued 60 mg PO DAILY December 11, 2024 3:59pm March 31, 2025 9:07am Start: 04-11-2023 End: 05-10-2023 take 1 capsule by mouth every twenty-four hours at bedtime Propranolol 60 mg capsule,extended release 24 hr Discontinued 60 mg PO AT BEDTIME April 11, 2023 12:00am May 10, 2023 9:10pm sertraline 50 mg oral tablet (4 sources) Serotonin Reuptake Inhibitor Start: 10-23-2022 sertraline (ZOLOFT) 50 mg tablet sulfamethoxazole 800 mg / trimethoprim 160 mg oral tablet (4 sources) Dihydrofolate Reductase Inhibitor Antibacterial, Sulfonamide Antimicrobial Start: 04-13-2025 End: 04-13-2025 take 1 tablet by mouth once 1 tablet, Oral, Once, On 04/13/25 at 2145, For 1 dose, Suspected Indication (Select all that apply): Skin and Soft Tissue Infection Start: 04-13-2025 End: 04-20-2025 take 1 tablet by mouth twice daily sulfamethoxazole-trimethoprim (Bactrim D S) 800-160 MG tablet Take 1 tablet by mouth 2 times daily for 7 days. 14 tablet 04/13/2025 04/20/2025 Active tamsulosin hydrochloride 0.4 mg oral capsule (20 sources) alpha-Adrenergic Aravind Start: 09-06-2019 End: 04-12-2023 take 1 capsule by mouth once daily Tamsulosin 0.4 mg capsule Discontinued 0.4 mg PO DAILY April 12, 2021 12:00am April 12, 2023 10:23am take 0.4 mg by mouth twice daily tamsulosin (FLOMAX) 0.4 mg Take 0.4 mg by mouth twice daily. 0 Active Comment on above: Take 0.4 mg by mouth once daily. Take 0.4 mg by mouth twice daily. telmisartan 40 mg oral tablet (20 sources) Angiotensin 2 Receptor Aravind Start: 04-12-20 End: 04-12-20 22 take 1 tablet by mouth once daily Telmisartan 40 mg tablet Discontinued 40 mg PO DAILY April 12, 2021 12:00am April 12, 2022 9:34am Comment on above: Take 40 mg by mouth once daily. 24 hr tolterodine tartrate 4 mg extended release oral capsule (20 sources) Cholinergic Muscarinic Antagonist Start: 02-17-20 End: 05-05-20 take 1 capsule by mouth once daily Tolterodine 4 mg capsule,extended release 24hr Discontinued 4 mg PO daily April 06, 2018 12:00am April 12, 2021 9:03am traZODone hydrochloride 100 mg oral tablet (20 sources) Serotonin Reuptake Inhibitor Start: 10-09-20 23 End: 03-27-20 24 take 1 tablet by mouth at bedtime Trazodone 100 mg tablet Discontinued 100 mg PO AT BEDTIME October 16, 2023 5:13pm March 27, 2024 11:31am Start: 09-20-2023 End: 10-09-2023 take 1 tablet by mouth at bedtime Trazodone 50 mg tablet Discontinued 50 mg PO AT BEDTIME September 20, 2023 1:40pm October 09, 2023 2:09pm TRELEGY ELLIPTA 200 MCG-62.5 MCG-25 MCG POWDER FOR INHALATION (7 sources) take 1 puff(s) by inhalation once daily TRELEGY ELLIPTA 200 MCG-62.5 MCG-25 MCG POWDER FOR INHALATION Inhale 1 Puff as instructed once daily. 0 Active Comment on above: Inhale 1 Puff as ins tructed once daily. vitamin b12 1 mg/ml injectable solution (20 sources) Vitamin B12 End: cyanocobalamin, vitamin B-12, (B-12 COMPLIANCE) 1,000 mcg/mL kit by INJECTION(UNSPECIFIE D PARENTERAL ROUTES) route. 0 08/04/2022 Discontinued cyanocobalamin ( B-12) 1,000 mcg/mL injection by INJECTION(UNSPECIFIED PARENTERAL ROUTES) route. 0 Active Cyanocobalamin ( B-12 COMPLIANCE INJECTION IJ) Inject as directed Once a month 0 Active Comment on above: by INJECTION(UNSPECI FIED PARENTERAL ROUTES) route. Problems Active Problems Problem Classification Problem Date Documented Da te Episodic/Chronic Anxiety disorders (20 sources) Anxiety; Translations: [Anxiety disorder, unspecified] Chronic Asthma (1 source) Moderate persistent asthma, uncomplicated; Translations: [Moderate persistent asthma, uncomplicated] Onset: 03-27-2025 Chronic Blindness and vision defects (20 sources) Diplopia; Translations: [Diplopia] 03-25-2024 Episodic Cardiac dysrhythmias (20 sources) Premature atrial contraction; Translations: [Atrial premature depolarization] Chronic Cardiac dysrhythmias (20 sources) Palpitations; Translations: [Palpitations] 02-05-2022 Episodic Chronic obstructive pulmonary disease and bronchiectasis (1 source) Chronic obstructive pulmonary disease, unspecified; Translations: [Chronic obstructive pulmonary disease, unspecified] Onset: 02-03-2025 Chronic Conditions associated with dizziness or vertigo (20 sources) Lightheadedness; Translations: [Dizziness and giddiness] Episodic Conduction disorders (20 sources) EKG: right bundle branch block; Translations: [Unspecified right bundle-branch block] 04-11-2022 Chronic Delirium, dementia, and amnestic and other cognitive disorders (20 sources) Dementia; Translations: [Unspecified dementia without behavioral disturbance] 05-10-2023 Chronic Diabetes mellitus with complications (3 sources) Type 2 diabetes mellitus with other specified complication; Translations: [Type 2 diabetes mellitus with diabetic polyneuropathy] Onset: 11-28-2024 Chronic Diabetes mellitus without complication (1 source) Type 2 diabetes mellitus without complications; Translations: [Type 2 diabetes mellitus without complications] Onset: 01-02-2025 Chronic Disorders of lipid metabolism (20 sources) Hyperlipidemia; Translations: [Hyperlipidemia, unspecified] 04-10-2018 Chronic E Codes: Fall (18 sources) Fall on same level from slipping, tripping or stumbling ; Translations: [Fall on same level from slipping, tripping and stumbling without subsequent striking against object, initial encounter] Onset: 04-13-2025 10-20-2024 Episodic Essential hypertension (20 sources) Essential hypertension; Translations: [Essential (primary) hypertension] Chronic Fracture of lower limb (20 sources) Closed fracture of distal fibula ; Translations: [Other fracture of upper and lower end of right fibula, initial encounter for closed fracture] 02-11-2023 Episodic Joint disorders and dislocations; trauma-related (5 sources) 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; Translations: [Other articular cartilage disorders, right wrist] Onset: 03-22-2018 03-22-2018 Chronic Malaise and fatigue (10 sources) Other fatigue; Translations: [Other malaise and fatigue] 08-07-2023 Episodic Mood disorders (2 sources) Depressive disorder; Translations: [Depression, unspecified depression type] Chronic Mood disorders (1 source) Mood disorders; Translations: [Depression, unspecified depression type] Onset: 09-02-2022 Nonspecific chest pain (1 source) Chest pain, unspecified; Translations: [Chest pain, unspecified] Onset: 04-21-2025 Episodic Open wounds of head; neck; and trunk (13 sources) Laceration of head; Translations: [Laceration without foreign body of unspecified part of head, initial encounter] Onset: 04-13-2025 12-13-2024 Episodic Other circulatory disease (1 source) Orthostatic hypotension; Translations: [Orthostatic hypotension] Episodic Other connective tissue disease (20 sources) Recurrent falls ; Translations: [Repeated falls] 04-12-2022 Episodic Other eye disorders (8 sources) Abducens nerve palsy; Translations: [Sixth [abducent] nerve palsy, right eye] 03-25-2024 Episodic Other eye disorders (1 source) Sixth [abducent] nerve palsy, right eye; Translations: [Sixth or abducens nerve palsy] 03-25-2024 Episodic Other fractures (7 sources) Closed fracture of two ribs; Translations: [Multiple fractures of ribs, left side, initial encounter for closed fracture] 10-20-2024 Episodic Other gastrointestinal disorders (20 sources) Dysphagia; Translations: [Dysphagia, unspecified] Episodic Other gastrointestinal disorders (2 sources) Oropharyngeal dysphagia; Translations: [Dysphagia, oropharyngeal phase] Episodic Other gastrointestinal disorders (2 sources) Dysphagia, unspecified; Translations: [Dysphagia, unspecified] Onset: 10-14-2024 Episodic Other hereditary and degenerative nervous system conditions (2 sources) Essential tremor; Translations: [Essential tremor] Chronic Other injuries and conditions due to external causes (20 sources) Closed injury of head; Translations: [Unspecified injury of head, initial encounter] 02-11-2023 Episodic Other lower respiratory disease (7 sources) Cough; Translations: [Cough] 09-02-2024 Episodic Other nervous system disorders (20 sources) Polyneuropathy; Translations: [Polyneuropathy, unspecified] 05-08-2023 Chronic Other nervous system disorders (8 sources) Polyneuropathy, unspecified; Translations: [Unspecified hereditary and idiopathic peripheral neuropathy] Onset: 09-24-2024 04-11-2023 Chronic Other nervous system disorders (20 sources) Tremor; Translations: [Tremor, unspecified] Episodic Other nervous system disorders (20 sources) Abnormal gait; Translations: [Unsteadiness on feet] Onset: 03-18-2022 Episodic Other nervous system disorders (1 source) Dysarthria; Translations: [Dysarthria and anarthria] Episodic Other nervous system disorders (1 source) Dysphasia; Translations: [Dysphasia] Episodic Other nervous system disorders (20 sources) Poor balance; Translations: [Other abnormalities of gait and mobility] 04-12-2022 Episodic Other nervous system disorders (7 sources) Unspecified abnormalities of gait and mobility; Translations: [Abnormality of gait] 04-11-2023 Episodic Other nutritional; endocrine; and metabolic disorders (20 sources) Obesity; Translations: [Obesity, unspecified] 04-11-2022 Chronic Parkinson`s disease (20 sources) Parkinson's disease; Translations: [Parkinson's disease] Onset: 03-18-2022 Chronic Parkinson`s disease (15 sources) Parkinson`s disease; Translations: [Parkinson's disease without dyskinesia, with fluctuations] Onset: 04-30-2025 Residual codes; unclassified (20 sources) Obstructive sleep apnea syndrome; Translations: [Obstructive sleep apnea (adult) (pediatric)] 02-05-2022 Chronic Residual codes; unclassified (11 sources) Activity of daily living (ADL) alteration; Translations: [Other specified health status] Onset: 10-28-2021 10-28-2021 Episodic Residual codes; unclassified (20 sources) Insomnia; Translations: [Insomnia, unspecified] 02-05-2022 Episodic Skull and face fractures (4 sources) Open fracture of nasal bones; Translations: [Fracture of nasal bones, initial encounter for open fracture] Onset: 04-13-2025 04-13-2025 Episodic Spondylosis; intervertebral disc disorders; other back problems (18 sources) Low back pain; Translations: [Low back pain] 05-10-2023 Episodic Sprains and strains (7 sources) Strain of neck muscle; Translations: [Strain of muscle, fascia and tendon at neck level, initial encounter] Onset: 04-21-2025 02-14-2025 Episodic Superficial injury; contusion (20 sources) Abrasion of face; Translations: [Abrasion of other part of head, initial encounter] 02-11-2023 Episodic Unclassified (1 source) OT EVAL Onset: 03-29-2022 Unclassified (1 source) Cough, unspecified; Translations: [Cough, unspecified] Onset: 10-23-2024 Past or Other Problems Problem Classification Problem Date Documented Da te Episodic/Chronic Administrative/social admission (11 sources) Other reduced mobility; Translations: [Other specified conditions influencing health status] Onset: Episodic Fracture of upper limb (5 sources) Closed Sanchez's fracture; Translations: [Sanchez's fracture of right radius, subsequent encounter for closed fracture with malunion] Onset: 8 03-01-2018 Episodic Other connective tissue disease (12 sources) Paraparesis; Translations: [Other symptoms and signs involving the musculoskeletal system] Onset: 2 Episodic Other connective tissue disease (1 source) Other symptoms and signs involving the musculoskeletal system; Translations: [Leg weakness, bilateral] Onset: 2 Episodic Other gastrointestinal disorders (1 source) Dysphagia, oropharyngeal phase; Translations: [Dysphagia, oropharyngeal phase] Onset: 2 Episodic Other lower respiratory disease (7 sources) Dyspnea; Translations: [Shortness of breath] Onset: 1 Episodic Other lower respiratory disease (1 source) Hypoxemia; Translations: [Hypoxemia] Onset: 5 Episodic Other nervous system disorders (20 sources) Impairment of balance; Translations: [Other abnormalities of gait and mobility] Onset: 1 Episodic Other nervous system disorders (10 sources) Coordination problem; Translations: [Other lack of coordination] Onset: 1 10-28-2021 Episodic Other nervous system disorders (1 source) Unsteadiness on feet; Translations: [Gait instability] Onset: 2 Episodic Other nervous system disorders (1 source) Other abnormalities of gait and mobility; Translations: [Imbalance] Onset: 2 Episodic Other nervous system disorders (1 source) Dysarthria and anarthria; Translations: [Dysarthria] Onset: 2 Episodic Other non-traumatic joint disorders (1 source) Pain in left ankle and joints of left foot; Translations: [Pain in left ankle and joints of left foot] Onset: 4 Episodic Other screening for suspected conditions (not mental disorders or infectious disease) (9 sources) Electrocardiogram abnormal; Translations: [Abnormal electrocardiogram [ECG] [EKG]] Onset: 1 Episodic Results Test Name Value Interpretation Reference Range Facility CT MAXILLOFACIAL WO IV CONTR [facility] 04-13-2025 CT MAXILLOFACIAL WO IV CONTRAST [facility] 1945 [id number] Exam Date/Time: 04/13/2025 21:07 Procedure: CT MAXILLOFACIAL WO IV CONTRAST Ordering Provider: POWELL J Reason For Exam: fall, left eyebrow lac. rule out fracture Gender: Male Age: 79 years Exam: CT MAXILLOFACIAL WO IV CONTRAST Clinical Indication: Left eyebrow laceration. Clinical concern for fracture. Fall. Parkinson's. Imaging Technique: Multiple axial 1mm CT images of the maxillofacial bones were obtained. Coronal and sagittal reconstructs were rendered. Dose reduction was employed with automated exposure control. Comparison: none FINDINGS: Left frontal scalp laceration and contusion present. Bilateral nasal bone fractures are present. There is no acute fracture of the orbital bones, maxillary bones, mandible, frontal bone, anterior nasal spine, nasal septum, or zygomatic arch. The TMJ alignment is within normal limits. There is no retro-orbital hematoma. Bilateral lens procedure noted. The paranasal sinuses are pneumatized. The mastoid air cells are pneumatized. There is no fluid in the right or left middle ear. Atherosclerotic calcifications are present. The airway is patent. The epiglottis is normal. IMPRESSION: 1. Bilateral nasal bone fractures. 2. Left frontal scalp laceration with contusion. Report Dictated on Electronically Signed By: Maine Briones MD Electronically Signed Date/Time: 04/13/2025 9:21 PM EDT Pt presents to ED via EMS from restaurant for c/o left frontal head lac after losing footing and falling onto face on the ground. Pt has hx of parkinson's. Abrasion noted to forehead, small lac noted to bridge of nose as well as a large lac to forehead above left eye Normal [facility] CT Maxillofacial region WO c [facility] 04-13-2025 1. Bilateral nasal bone fractures. 2. Left frontal scalp laceration with contusion. Report Dictated on Electronically Signed By: Maine Briones MD Electronically Signed Date/Time: 04/13/2025 9:21 PM EDT [facility] [employer] Patient Name: KEVIN [facility]RIFFITH [facility] 1945 [id number] Exam Date/Time: 04/13/2025 21:07 Procedure: CT MAXILLOFACIAL WO IV CONTRAST Ordering Provider: POWELL J Reason For Exam: fall, left eyebrow lac. rule out fracture Gender: Male Age: 79 years Exam: CT MAXILLOFACIAL WO IV CONTRAST Clinical Indication: Left eyebrow laceration. Clinical concern for fracture. Fall. Parkinson's. Imaging Technique: Multiple axial 1mm CT images of the maxillofacial bones were obtained. Coronal and sagittal reconstructs were rendered. Dose reduction was employed with automated exposure control. Comparison: none FINDINGS: Left frontal scalp laceration and contusion present. Bilateral nasal bone fractures are present. There is no acute fracture of the orbital bones, maxillary bones, mandible, frontal bone, anterior nasal spine, nasal septum, or zygomatic arch. The TMJ alignment is within normal limits. There is no retro-orbital hematoma. Bilateral lens procedure noted. The paranasal sinuses are pneumatized. The mastoid air cells are pneumatized. There is no fluid in the right or left middle ear. Atherosclerotic calcifications are present. The airway is patent. The epiglottis is normal. [facility] Maine Briones MD - 04/13/2025 Patient Name: KEVIN [facility]RIFFITH [facility] 1945 [id number] Exam Date/Time: 04/13/2025 21:07 Procedure: CT MAXILLOFACIAL WO IV CONTRAST Ordering Provider: POWELL J Reason For Exam: fall, left eyebrow lac. rule out fracture Gender: Male Age: 79 years Exam: CT MAXILLOFACIAL WO IV CONTRAST Clinical Indication: Left eyebrow laceration. Clinical concern for fracture. Fall. Parkinson's. Imaging Technique: Multiple axial 1mm CT images of the maxillofacial bones were obtained. Coronal and sagittal reconstructs were rendered. Dose reduction was employed with automated exposure control. Comparison: none FINDINGS: Left frontal scalp laceration and contusion present. Bilateral nasal bone fractures are present. There is no acute fracture of the orbital bones, maxillary bones, mandible, frontal bone, anterior nasal spine, nasal septum, or zygomatic arch. The TMJ alignment is within normal limits. There is no retro-orbital hematoma. Bilateral lens procedure noted. The paranasal sinuses are pneumatized. The mastoid air cells are pneumatized. There is no fluid in the right or left middle ear. Atherosclerotic calcifications are present. The airway is patent. The epiglottis is normal. IMPRESSION: 1. Bilateral nasal bone fractures. 2. Left frontal scalp laceration with contusion. Report Dictated on Electronically Signed By: Maine Briones MD Electronically Signed Date/Time: 04/13/2025 9:21 PM EDT [facility] Radiology Study observation (narrative) [facility] CT Maxillofacial region WO c ontrastOrdered By: Maine rBiones on 04-13-2025 [facility] ED Nursing Noteon 04-13-2025 ED Nursing Note Pt presents to ED vi a EMS from restaurant for c/o left frontal head lac after losing footing and falling onto face on the ground. Pt has hx of parkinson's. Abrasion noted to forehead, small lac noted to bridge of nose as well as a large lac to forehead above left eye Normal [facility] ED Provider Noteon ED Provider Note EMERGENCY DEPARTMENT ENCOUNTER Pt Name: Kevin Griffith Birthdate 1945 Date of evaluation: 04/13/2025 ED Provider: Roddy Powell MD CHIEF COMPLAINT Chief Complaint Patient presents with Laceration HISTORY OF PRESENT ILLNESS (Location/Symptom, Timing/Onset, Context/Setting, Quality, Duration, Modifying Factors, Severity) Note limiting factors. I wore appropriate PPE for the entirety of this encounter. HPI Kevin Griffith is a 79 y.o. male who presents to the emergency department with chief complaint of a fall. Part of the history is obtained by the patient's , who states that because of the patient's history of Parkinson's disease, he has frequent falls, and went to stand up after being seated at a restaurant today, and fell directly onto his face. The patient denies any loss of consciousness or alcohol use. Nursing Notes were reviewed. Limitations to history: None Outside historians: Significant other REVIEW OF SYSTEMS Review of Systems Pertinent positives and negatives as per HPI. PAST MEDICAL HISTORY Medical History[1] SURGICAL HISTORY Surgical History[2] CURRENT MEDICATIONS Previous Medications No medications on file ALLERGIES Reglan [metoclopramide] FAMILY HISTORY Family History[3] SOCIAL HISTORY Social History[4] SCREENINGS PHYSICAL EXAM ED Triage Vitals [04/13/252039] Temp Heart Rate Resp BP 36.7 ?C (98 ?F) 77 18 132/58 SpO2 Temp src Heart Rate Source Patient Position 99 % -- -- -- BP Location FiO2 (%) -- -- Physical Exam Vitals and nursing note reviewed. Constitutional: General: He is not in acute distress. Appearance: He is well-developed. HENT: Head: Normocephalic. Comments: Large 4 cm gaping laceration just superior to the left eyebrow. 1 cm nongaping laceration to the bridge of the nose. No reproducible TTP along the face. Eyes: Extraocular Movements: Extraocular movements intact. Conjunctiva/sclera: Conjunctivae normal. Comments: EOMI without signs of entrapment Cardiovascular: Rate and Rhythm: Normal rate. Pulmonary: Effort: Pulmonary effort is normal. No respiratory distress. Musculoskeletal: Cervical back: Neck supple. Skin: General: Skin is warm and dry. Neurological: Mental Status: He is alert. Psychiatric: Mood and Affect: Mood normal. DIAGNOSTIC RESULTS Procedures/EKG: Interpretation per the Radiologist below, if available at the time of this note: CT maxillofacial wo IV contrast Final Result 1. Bilateral nasal bone fractures. 2. Left frontal scalp laceration with contusion. Report Dictated on Electronically Signed By: Maine Briones MD Electronically Signed Date/Time: 04/13/2025 9:21 PM EDT ED BEDSIDE ULTRASOUND: Performed by ED Physician - none LABS: Labs Reviewed - No data to display All other labs were within normal range or not returned as of this dictation. EMERGENCY DEPARTMENT COURSE and DIFFERENTIAL DIAGNOSIS/MDM: Vitals: Vitals: 04/13/252039 BP: 132/58 Pulse: 77 Resp: 18 Temp: 36.7 ?C (98 ?F) SpO2: 99% The patient presented with a chief complaint of a fall. The patient refuses a tetanus shot. He has medical decision-making capacity. The differential diagnosis associated with this patient's presentation includes but is not limited to: Cannot rule out traumatic injuries, including fractures Our workup consisted of ordering/reviewing: CT maxillofacial I reviewed external records from: [facility] demonstrating 1 prescription, for [place] CT demonstrating bilateral nasal bone fractures. The patient states that he had a recent fall and these may be old. Eyebrow laceration sutured as detailed in procedure note. Laceration to the bridge of the nose nongaping and the patient's states that she thinks this may have occurred from his last fall anyway. Consideration for escalation of care with: Admission and rehab placement, for frequent falls, but the patient refuses. Patient's care was impacted by history of Parkinson disease, causing frequent falls. The patient will be discharged The patient is in agreement with this plan. Diagnoses as of 04/13/252220 Facial laceration, initial encounter Fall, initial encounter Open fracture of nasal bone, initial encounter Medications lidocaine-EPINEPHrine (Xylocaine W/EPI) 1 %-1:689326 injection 10 mL (has no administration in time range) sulfamethoxazole-trimet hoprim (Bactrim DS) 800-160 MG per tablet 1 tablet (has no administration in time range) cephalexin (Keflex) capsule 500 mg (has no administration in time range) REVAL: CRITICAL CARE TIME None CONSULTS: None PROCEDURES: Unless otherwise noted below, none Laceration Repair Performed by: Chetan Powell MD Authorized by: Chetan Powell MD Consent: Consent obtained: Verbal Consent given by: Patient [place] protocol: Imaging studies available: yes Patient identi (more content not included)... Normal [facility] No Panel Informationon 04-13 Chetan Powell MD 04/13/2025 10:22 PM Laceration Repair Performed by: Chetan Powell MD Authorized by: Chetan Powell MD Consent: Consent obtained: Verbal Consent given by: Patient [place] protocol: Imaging studies available: yes Patient identity confirmed: Verbally with patient Anesthesia: Anesthesia method: Local infiltration Local anesthetic: Lidocaine 1% WITH epi Laceration details: Location: Face Face location: L eyebrow Length (cm): 4 Pre-procedure details: Preparation: Patient was prepped and draped in usual sterile fashion Treatment: Area cleansed with: Chlorhexidine Amount of cleaning: Standard Skin repair: Repair method: Sutures Suture size: 5-0 Suture material: Prolene Number of sutures: 10 Approximation: Approximation: Close Repair type: Repair type: Simple Post-procedure details: Dressing: Open (no dressing) Procedure completion: Tol[facility] Brain/Head without Contrasto n 05-21-2025 Brain/Head without Contrast [facility] Imaging Services [address] [place] [address] Brain/Head without Contrast MR#: [id number] Acct: [id number] Name: KEVIN GRIFFITH Rep #: [id number] : 1945 M 79 From: Donnell Corey MD PCP: Dr. Ron Cooley MD Status: REG ER Study: Brain/Head without Contrast Date of Exam: 03/21 12/14 Exam# [id number] Ordering Dr: Surya Dumont MD EXAM: CT Head Without Intravenous Contrast CLINICAL INDICATION: TRAUMA TECHNIQUE: Axial computed tomography images of the head/brain without intravenous contrast. This CT exam was performed using one or more of the following dose reduction techniques: automated exposure control, adjustment of the mA and/or kV according to patient size, and/or use of iterative reconstruction technique. COMPARISON: No relevant prior studies available. FINDINGS: BRAIN AND EXTRA-AXIAL SPACES: Areas of decreased attenuation in the deep cerebral white matter are consistent with small vessel ischemic/degenerative changes. The cerebral and cerebellar sulci are prominent consistent with brain atrophy. No acute intracranial hemorrhage, midline shift or mass effect. If symptoms persist, further evaluation with MRI is recommended. BONES/JOINTS: Unremarkable. No acute fracture. SOFT TISSUES: Unremarkable. SINUSES: Unremarkable as visualized. No acute sinusitis. MASTOID AIR CELLS: Unremarkable as visualized. No mastoid effusion. OTHER FINDINGS: Prior 02/14/2025. CT/Brain/Head without Contrast IMPRESSION: 1. Small vessel ischemic/degenerative changes. 2. Generalized brain atrophy. 3. No acute intracranial hemorrhage, midline shift or mass effect. If symptoms persist, further evaluation with MRI is recommended. 4. No significant change from the prior exam. Reading Location: [facility] CC: Dr. Surya Dumont MD; Dr. Ron Cooley MD [employer] Cook: Signed Normal [facility] Emergency Department Summary on 04-09-2025 Emergency Department Summary [facility] Medical Records Department [address] [place] [address] Emergency Department Summary 04/09/25 MR#: [id number] Acct: [id number] Name: KEVIN GRIFFITH Rep #: [id number] : 1945 79 From: Surya Dumont MD PCP: Dr. Ron Cooley MD Status:REG ER Location: ED HPI History of Present Illness Chief Complaint: Head Injury Narrative Narrative: 79-year-old male past medical history of Parkinson's disease and chronic neck pain presents status post fall. He also has past medical history of diabetes. His daughter presents him because although he frequently falls, a few hours ago this morning, he fell and hit his head against a light switch. He denies loss of consciousness, no new neck pain. They checked his sugar recently and it was low at 66 so his daughter is making him eat. He is unsure of his last tetanus immunization. He denies other injury. He states he does not take blood thinners. Tetanus Immunization: <5 years [facility] Medical History Parkinson's disease Right bundle branch block (RBBB) Obesity Type 2 diabetes mellitus Essential (primary) hypertension Cataract Back problem Arthritis HLD (hyperlipidemia) Paroxysmal atrial fibrillation Home Medications ???Medication ???Instructions ???Recorded ???Last Taken ???Type pravastatin 80 mg tablet 80 mg PO QDAY 04/06/18 Unknown His tory fluticasone fur. 200 mcg-umeclid 1 inh inhalation DAILY 04/12/22 Un known History 62.5 mcg-vilant 25 mcg inhalat.powder (Trelegy Ellipta) pantoprazole 40 mg tablet,delayed 40 mg PO DAILY 04/12/22 Unknown H istory release finasteride 5 mg tablet 5 mg PO DAILY 04/11/23 Unknown His tory alfuzosin 10 mg tablet,extended 10 mg PO DAILY 04/12/23 Unknown Hi story release 24 hr cholecalciferol (vitamin D3) 25 50 mcg PO DAILY 04/12/23 Unknown H istory mcg (1,000 unit) capsule insulin aspart U-100 100 unit/mL See Rx Instructions .Route .COMPLE X 04/12/23 Unknown History subcutaneous solution (Novolog U-100 Insulin aspart) metformin 750 mg tablet,extended 750 mg PO QHS 04/12/23 Unknown His tory release 24 hr ascorbic acid (vitamin C) 1,000 mg 1 g PO DAILY 06/27/24 Unknown Hi story capsule insulin glargine U-300 conc 300 60 unit subcut DAILY 06/27/24 Unkn own History unit/mL (3 mL) subcutaneous pen (Toujeo Max U-300 SoloStar) zinc gluconate 30 mg tablet 30 mg PO DAILY 06/27/24 Unknown Hi story hydrocodone-acetaminoph en 5-325mg 1 tab PO Q6H PRN PRN Pain 4 days 10/12/24 Unknown Rx 5mg-325mg #15 TABLETS ropinirole 2 mg tablet 2 mg PO TID #270 tabs 03/20/25 Unk nown Rx carbidopa 25 mg-levodopa 100 mg 2 tab PO .QID #720 tabs 03/31/25 U nknown Rx tablet doxepin 25 mg capsule 25 mg PO QHS #90 caps 03/31/25 Unk nown Rx propranolol 60 mg capsule,24 60 mg PO DAILY #90 caps 03/31/25 U nknown Rx hr,extended release Allergy/AdvReac Type Severity Reaction Status Date / Time metoclopramide (From Reglan) Allergy Severe HYPER Verified 03/20/25 15:21 Family History Father Leukemia Surgical History History of total left knee replacement (TKR) History of left tennis elbow Hx of spinal fusion History of skin cancer Social History household members: spouse housing: house Smoking Status: Former smoker alcohol intake: never substance use type: does not use ROS ROS ED ROS Narrative Review of systems positive for fall without loss of consciousness. Sustained laceration to left front scalp. Abrasion on forehead from previous fall. No new neck pain. No other injury. Reported low blood sugar prior to arrival. EXAM Physical Exam Narrative Exam Narrative: GCS 15. ABCs intact. HEENT examination does show a 2 cm laceration on the left frontal scalp without active bleeding, no apparent galeal involvement. PERRL, EOMI. Neck without vertebral point tenderness or bony step-off. Cardiovascular examination regular rate and rhythm, lungs clear to auscultation bilaterally. Abdomen is soft, nontender, with positive bowel sounds. Neurological examination shows him to be awake, alert, oriented to person place and time, interactive, able to raise arms, currently eating a hamburger. Const Vital Signs: 04/09/25 11:18 04/09/25 11:28 Temperature 97.6 F L Temperature Source Temporal Pulse Rate 75 Respiratory Rate 18 Respiratory Effort Normal Respiratory Depth Normal Respiratory Pattern Normal Blood Pressure 162/81 H Blood Pressure Mean 108 Pulse Ox 96 Oxygen Delivery Method Room Air Room Air MDM MDM MDM Narrative Medical decis (more content not included)... Normal [facility] Spine Cervical without Contr ason 04-09-2025 Spine Cervical without Contras [facility] Imaging Services [address] [place], [place] [id number] Spine Cervical without Contras MR#: [id number] Acct: [id number] Name: KEVIN GRIFFITH Rep #: [id number] : 1945 M 79 From: Donnell Corey MD PCP: Dr. Ron Cooley MD Status: REG ER Study: Spine Cervical without Contras Date of Exam: 0 04/09/25 Exam# [id number] Ordering Dr: Surya Dumont MD EXAM: CT Cervical Spine Without Intravenous Contrast CLINICAL INDICATION: TRAUMA TECHNIQUE: Axial computed tomography images of the cervical spine without intravenous contrast. This CT exam was performed using one or more of the following dose reduction techniques: automated exposure control, adjustment of the mA and/or kV according to patient size, and/or use of iterative reconstruction technique. COMPARISON: CT Cervical Spine dated 02/14/2025 FINDINGS: VERTEBRAE: Mild reversal cervical spine lordosis. Degenerative facet arthropathy throughout the cervical spine. No acute fracture. DISCS/SPINAL CANAL/NEURAL FORAMINA: Degenerative disc disease throughout the cervical spine. SOFT TISSUES: Unremarkable. CT/Spine Cervical without Contras IMPRESSION: 1. No acute fracture. 2. Degenerative changes of the cervical spine as described. Reading Location: [facility] CC: Dr. Surya Dumont MD; Dr. Ron Cooley MD [employer] Cook: Signed Normal [facility] Anion gap in Serum or Plasma Ordered By: Ron Cooley on 04-03-2025 Anion gap [Moles/Vol] 11 mmol/L 04-03 [facility] BUN/creatinine ratioOrdered By: Ron Cooley on 04-03-2025 Urea nitrogen/Creatinine [Mass ratio] 20.8 mg/mg High - [facility] Bilirubin, totalOrdered By: Ron Cooley on 04-03-2025 Bilirubin [Mass/Vol] 0.52 mg/dL 0.00-1.30 [facility] Calculated very low density lipoprotein (VLDL) cholesterol measurementOrdered By: Ron Cooley on 04-03-2025 Calculated very low density lipoprotein (VLDL) cholesterol measurement 27 mg/dL [facility] Carbon dioxide, total [Moles /volume] in Central venous bloodOrdered By: Ron Cooley on 04-03-2025 CO2 [Moles/Vol] 26.4 mmol/L 21.0-32.0 [facility] Chloride assayOrdered By: Rimma Cooley on 04-03-2025 Chloride [Moles/Vol] 104 mmol/L 98-108 [facility] Comprehensive Metabolic Prof ilon 04-03-2025 Albumin [Mass/Vol] 3.9 g/dL Normal 3.4-4.8 [facility] Comment on above: Order Comment: Order Date: 03/13/25Order Info: [id number] - CMPOrder Info: [id number] - LIPID Performed By: #### L 501.4100, L501.4405, L500.2500, L501.9985 #### [facility] [address] [place], [place], [id number] Albumin/Globulin [Mass ratio] 1.4 {ratio} Normal 0.9-2.4 [facility] Comment on above: Order Comment: Order Date: 03/13/25Order Info: [id number] - CMPOrder Info: [id number] - LIPID Performed By: #### L 501.4100, L501.4405, L500.2500, L501.9985 #### [facility] [address] [place], [address] ALK PHOS 79 U/L Normal 40-129 [facility] Comment on above: Order Comment: Order Date: 03/13/25Order Info: [id number] - CMPOrder Info: [id number] - LIPID Performed By: #### L 501.4100, L501.4405, L500.2500, L501.9985 #### [facility] [address] [place], [address] ALT [Catalytic activity/Vol] 5 U/L Normal <=46 [facility] Comment on above: Order Comment: Order Date: 03/13/25Order Info: [id number]- - CMPOrder Info: [id number] - LIPID Performed By: #### L 501.4100, L501.4405, L500.2500, L501.9985 #### [facility] [address] [place], [address] AST [Catalytic activity/Vol] 17 U/L Normal <=37 [facility] Comment on above: Order Comment: Order Date: 03/13/25Order Info: 07- - CMPOrder Info: [id number] - LIPID Performed By: #### L 501.4100, L501.4405, L500.2500, L501.9985 #### [facility] [address] [place], [address] Bilirubin [Mass/Vol] 0.52 mg/dL Normal 0.00-1.30 [facility] Comment on above: Order Comment: Order Date: 03/13/25Order Info: [id number]- - CMPOrder Info: [id number] - LIPID Performed By: #### L 501.4100, L501.4405, L500.2500, L501.9985 #### [facility] [address] [place], [address] BUN/CRE 20.8 RATIO High 10-20 [facility] Comment on above: Order Comment: Order Date: 03/13/25Order Info: [id number] - CMPOrder Info: [id number] - LIPID Performed By: #### L 501.4100, L501.4405, L500.2500, L501.9985 #### [facility] [address] [place], [address] Calcium [Mass/Vol] 9.2 mg/dL Normal 7.6-11.0 [facility] Comment on above: Order Comment: Order Date: 03/13/25Order Info: [id number] - CMPOrder Info: [id number] - LIPID Performed By: #### L 501.4100, L501.4405, L500.2500, L501.9985 #### [facility] [address] [place], [address] Chloride [Moles/Vol] 104 mmol/L Normal 98-108 [facility] Comment on above: Order Comment: Order Date: 03/13/25Order Info: [id number]- - CMPOrder Info: [id number] - LIPID Performed By: #### L 501.4100, L501.4405, L500.2500, L501.9985 #### [facility] [address] [place], [address] CO2 [Moles/Vol] 26.4 mmol/L Normal 21.0-32.0 [facility] Comment on above: Order Comment: Order Date: 03/13/25Order Info: [id number]- - CMPOrder Info: [id number] - LIPID Performed By: #### L 501.4100, L501.4405, L500.2500, L501.9985 #### [facility] [address] [place], [address] Creatinine [Mass/Vol] 0.78 mg/dL Normal 0.70-1.20 [facility] Comment on above: Order Comment: Order Date: 03/13/25Order Info: [id number] - CMPOrder Info: [id number] - LIPID Performed By: #### L 501.4100, L501.4405, L500.2500, L501.9985 #### [facility] [address] [place], [address] GAP 11 Normal 5-15 [facility] Comment on above: Order Comment: Order Date: 03/13/25Order Info: 07 - CMPOrder Info: - LIPID Performed By: #### L 501.4100, L501.4405, L500.2500, L501.9985 #### [facility] [address] [place], [address] GFR/1.73 sq M.predicted among non-blacks MDRD (S/P/Bld) [Vol rate/Area] 90 mL/min/{1.73_m2} Normal >60 [facility] Comment on above: Order Comment: Order Date: 03/13/25Order Info: [id number] - CMPOrder Info: - LIPID Result Comment: mL/m in/1.73m2 CKD-EPI Creatinine Equation (2020) Performed By: #### L 501.4100, L501.4405, L500.2500, L501.9985 #### [facility] [address] [place], [address] Globulin (S) [Mass/Vol] 2.8 g/dL Normal 2.2-4.2 [facility] Comment on above: Order Comment: Order Date: 03/13/25Order Info: [id number] - CMPOrder Info: [id number] - LIPID Performed By: #### L 501.4100, L501.4405, L500.2500, L501.9985 #### [facility] [address] [place], [address] Glucose [Mass/Vol] 109 mg/dL High 70-99 [facility] Comment on above: Order Comment: Order Date: 03/13/25Order Info: [id number]- - CMPOrder Info: [id number] - LIPID Performed By: #### L 501.4100, L501.4405, L500.2500,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 assess swallow function, assess risk for aspiration, and determine recommendations for least restrictive diet textures and compensatory strategies to improve safety of swallow.??? Medical History: Pt. is here for MBSS as referred by neurologist Dr. Santo to evaluate dysphagia. He is diagnosed with moderate Parkinson's disease. According to pt., he has been experiencing frequent episodes of coughing and choking with solids and liquids. He is unable to provide specifics regarding whether certain foods or drinks, or using a cup or straw, contribute to his difficulties. Pt. denies any history of pneumonia. Dentition: WNL Mental Status: Impaired (Parkinson's disease dementia) Respiratory Status: Oxygenating on Room Air Penetration-Aspiration Scale Penetration-Aspiration Scale: OBJECTIVE ASSESSMENT OF SWALLOW FUNCTION (QUANTITATIVE ??? PER TRIAL): PENETRATION / ASPIRATION SCALE (OBANDO): 1 = does not enter airway 2 (more content not included)... Normal [facility] AST(SGOT)on 02-20-2025 AST [Catalytic activity/Vol] 13 U/L Normal <=37 [facility] Comment on above: Performed By: #### L 500.4100 #### [facility] [address] [place], [address] Alanine Aminotransferas (SGP T)on 02-20-2025 ALT [Catalytic activity/Vol] 7 U/L Normal <=46 [facility] Comment on above: Performed By: #### L 500.4100 #### [facility] [address] [place], [address] Albumin DL <= 20 mg/L (U) [M ass/Vol]Ordered By: Natasha Gregory on 02-20-2025 Urine Random Microalbumin 13.6 mg/L NO RANGE EST. [facility] Anion gap in Serum or Plasma Ordered By: Natasha Gregory on 02-20-2025 Anion gap [Moles/Vol] 13 mmol/L 5-15 [facility] BUN/creatinine ratioOrdered By: Natasha Gregory on 02-20-2025 Urea nitrogen/Creatinine [Mass ratio] 23.0 mg/mg High - [facility] Basic Metabolic Profile (BMP )on 02-20-2025 BUN/CRE 23.0 RATIO High - [facility] Comment on above: Performed By: #### L 500.2500, L501.4405, L501.9985, L502.0250, L501.4100 #### [facility] [address] [place], [address] Calcium [Mass/Vol] 9.0 mg/dL Normal 7.6-11.0 [facility] Comment on above: Performed By: #### L 500.2500, L501.4405, L501.9985, L502.0250, L501.4100 #### [facility] [address] [place], [address] Chloride [Moles/Vol] 102 mmol/L Normal 98-108 [facility] Comment on above: Performed By: #### L 500.2500, L501.4405, L501.9985, L502.0250, L501.4100 #### [facility] [address] [place], [address] CO2 [Moles/Vol] 21.9 mmol/L Normal 21.0-32.0 [facility] Comment on above: Performed By: #### L 500.2500, L501.4405, L501.9985, L502.0250, L501.4100 #### [facility] [address] [place], [address] Creatinine [Mass/Vol] 0.83 mg/dL Normal 0.70-1.20 [facility] Comment on above: Performed By: #### L 500.2500, L501.4405, L501.9985, L502.0250, L501.4100 #### [facility] [address] [place], [address] GAP 13 Normal 5-15 [facility] Comment on above: Performed By: #### L 500.2500, L501.4405, L501.9985, L502.0250, L501.4100 #### [facility] [address] [place], [address] GFR/1.73 sq M.predicted among non-blacks MDRD (S/P/Bld) [Vol rate/Area] 89 mL/min/{1.73_m2} Normal >60 [facility] Comment on above: Result Comment: mL/m in/1.73m2 CKD-EPI Creatinine Equation (2020) Performed By: #### L 500.2500, L501.4405, L501.9985, L502.0250, L501.4100 #### [facility] [address] [place], [address] Glucose [Mass/Vol] 277 mg/dL High 70-99 [facility] Comment on above: Performed By: #### L 500.2500, L501.4405, L501.9985, L502.0250, L501.4100 #### [facility] [address] [place], [address] Potassium [Moles/Vol] 4.1 mmol/L Normal 3.3-5.1 [facility] Comment on above: Performed By: #### L 500.2500, L501.4405, L501.9985, L502.0250, L501.4100 #### [facility] [address] [place], [address] Sodium [Moles/Vol] 137 mmol/L Normal 133-145 [facility] Comment on above: Performed By: #### L 500.2500, L501.4405, L501.9985, L502.0250, L501.4100 #### [facility] [address] [place], [address] Urea nitrogen [Mass/Vol] 19 mg/dL Normal 4-19 [facility] Comment on above: Performed By: #### L 500.2500, L501.4405, L501.9985, L502.0250, L501.4100 #### [facility] [address] [place], [address] Carbon dioxide, total [Moles /volume] in Central venous bloodOrdered By: Natasha Gregory on 02-20-2025 CO2 [Moles/Vol] 21.9 mmol/L 21.0-32.0 [facility] Chloride assayOrdered By: Terri Gregory on 02-20-2025 Chloride [Moles/Vol] 102 mmol/L 98-108 [facility] Creatinine Unsp time (U) [Ma ss/Vol]Ordered By: Natasha Gregory on 02-20-2025 Creatinine (U) [Mass/Vol] 155.00 mg/dL 39 .00-259.0 0 [facility] GFR/1.73 sq M.predicted krystal g non-blacks MDRD (S/P/Bld) [Vol rate/Area]Ordered By: Natasha Gregory on 02-20-2025 Estimated GFR (MDRD) Non-Af Amer 89 >60 [facility] Comment on above: mL/min/1.73m2 CKD-EP I Creatinine Equation (2020) Glomerular filtration rate ( GFR) estimation/1.73 sq m using serum, plasma, or whole bOrdered By: Natasha Gregory on 02-20-2025 GFR/1.73 sq M.predicted among non-blacks MDRD (S/P/Bld) [Vol rate/Area] 89 mL/min/{1.73_m2} >60 [facility] Comment on above: mL/min/1.73m2 CKD-EP I Creatinine Equation (2020) Hemoglobin A1con 02-20-2025 HbA1c (Bld) [Mass fraction] 7.1 % Normal <=5.6 [facility] Comment on above: Performed By: #### L 500.2500, L501.4405, L501.9985, L502.0250, L501.4100 #### [facility] [address] [place], [address] Hemoglobin A1c percentageOrd ered By: Natasha Gregory on 02-20-2025 HbA1c (Bld) [Mass fraction] 7.1 % >5.7 [facility] - Chemistry and C hemistry - challengeOrdered By: Natasha Gregory on 02-20-2025 AST [Catalytic activity/Vol] 13 U/L <38 [facility] Microalb:Creat Ratio,Random URon 02-20-2025 Creatinine [Mass/Vol] 155.00 mg/dL Normal 39.00- 259.0 0 [facility] Comment on above: Performed By: #### L 500.4100 #### [facility] [address] [place], [address] MALB:CREAT 87.7 mg/g CRE Normal [facility] Comment on above: Performed By: #### L 500.4100 #### [facility] [address] [place], [address] MICROALBUMIN,UR 13.6 mg/L Normal NO RANGE EST. [facility] Comment on above: Performed By: #### L 500.4100 #### [facility] [address] [place], [address] Microalbumin/creat ratio urO rdered By: Natasha Gregory on 02-20-2025 Urine Microalbumin/Creatinine Ratio 87.7 mg/g CRE [facility] Potassium (Unsp spec) [Mass/ Vol]Ordered By: Natasha Gregory on 02-20-2025 Potassium [Moles/Vol] 4.1 mmol/L 3.3-5.1 [facility] Potassium measurement (mass/ volume)Ordered By: Natasha Gregory on 02-20-2025 Potassium (Unsp spec) [Mass/Vol] 4.1 mmol/L 3.3-5.1 [facility] Random urine creatinine walt urement (mass/volume)Ordered By: Natasha Gregory on 02-20-2025 Creatinine Unsp time (U) [Mass/Vol] 155.00 mg/dL 39.00-259.0 0 [facility] Serum creatinine measurement (mass/volume)Ordered By: Natasha Gregory on 02-20-2025 Creatinine [Mass/Vol] 0.83 mg/dL 0.70-1.20 [facility] Serum glucose measurement (m ass/volume)Ordered By: Natasha Gregory on 02-20-2025 Glucose [Mass/Vol] 277 mg/dL High 70-99 [facility] Serum or plasma alanine max otransferase (ALT) measurementOrdered By: Natasha Gregory on 02-20-2025 ALT [Catalytic activity/Vol] 7 U/L <47 [facility] Serum or plasma calcium walt urement (mass/volume)Ordered By: Natasha Gregory on 02-20-2025 Calcium [Mass/Vol] 9.0 mg/dL 7.6-11.0 [facility] Serum or plasma urea nitroge n measurement (mass/volume)Ordered By: Natasha Gregory on 02-20-2025 Urea nitrogen [Mass/Vol] 19 mg/dL 4-19 [facility] Sodium levelOrdered By: Josefina Gregory on 02-20-2025 Sodium [Moles/Vol] 137 mmol/L 133-145 [facility] Urine albumin measurement detection limit of 20 mg/L or less (mass/volume)Ordered By: Natasha Gregory on 02-20-2025 Albumin DL <= 20 mg/L (U) [Mass/Vol] 13.6 mg/L NO RANGE EST. [facility] Brain/Head without Contrasto n 02-14-2025 Brain/Head without Contrast [facility] Imaging Services [address] [place] [address] Brain/Head without Contrast MR#: [id number] Acct: [id number] Name: KEVIN GRIFFITH Rep #: [id number] : 1945 M 79 From: Tatiana Guadalupe nd, MD PCP: Dr. Ron Cooley MD Status: REG ER Study: Brain/Head without Contrast Date of Exam: 01/19 07/14 Exam# [id number] Ordering Dr: Joe Soto DO EXAM: BRAIN/HEAD WITHOUT CONTRAST CLINICAL HISTORY: 79-year-old male, fall, hit head on concrete. RADIATION DOSE SUMMARY: CTDlvol: 50 mGy DLP: 830 mGycm COMPARISON: CT head 12/05/2024. TECHNIQUE: Routine CT imaging of the head without IV contrast. Additional multiplanar reformats were obtained. Dose reduction techniques were used including intermediate exposure control (AEC),iterative reconstruction technique, and/or mA and/or KV dose adjustments based on patient's size. FINDINGS: Mild generalized cerebral volume loss with concordant prominence of the ventricles and subarachnoid spaces. Mild scattered supratentorial white matter hypodensities. The onofre-white matter interfaces are otherwise maintained. No acute intracranial hemorrhage or herniation. The orbits, visualized paranasal sinuses and mastoids are unremarkable. No acute calvarial fracture. Moderate-sized right upper posterior scalp hematoma. CT/Brain/Head without Contrast IMPRESSION: 1. No acute intracranial finding. 2. Moderate-sized right upper posterior scalp hematoma. 3. Findings of mild chronic microvascular ischemic change and age-related change. Reading Location: [facility] CC: Dr. Ron Cooley MD; Dr. Joe Soto DO [employer] Cook: Signed Normal [facility] Emergency Department Summary on 02-14-2025 Emergency Department Summary [facility] Medical Records Department [address] [place] [id number] Emergency Department Summary 02/14/25 MR#: [id number] Acct: [id number] Name: KEVIN GRIFFITH Rep #: [id number] : 1945 79 From: Joe Soto DO PCP: Dr. Ron Cooley MD Status:DEP ER Location: ED HPI History of Present Illness Chief Complaint: Head Injury Detail of Chief Complaint: Head injury Informant: patient Narrative Narrative: Patient presents after head injury tonight. Patient states that he had a loss his balance fell backwards while in the basement struck his head on the ground which is concrete. No loss of consciousness. Patient has history of Parkinson's and falls frequently. He is not anticoagulated. He also fell about 3 days ago and hit his head and hurt his neck but was not seen at that time. Patient has been ambulatory since the fall. He had noted some blood on his scalp earlier [facility] Medical History Parkinson's disease Right bundle branch block (RBBB) Obesity Type 2 diabetes mellitus Essential (primary) hypertension Cataract Back problem Arthritis HLD (hyperlipidemia) Paroxysmal atrial fibrillation Home Medications ???Medication ???Instructions ???Recorded ???Last Taken ???Type pravastatin 80 mg tablet 80 mg PO QDAY 04/06/18 Unknown His tory hydrochlorothiazide 12.5 mg tablet 12.5 mg PO DAILY 04/12/21 Unknow n History fluticasone fur. 200 mcg-umeclid 1 inh inhalation DAILY 04/12/22 Un known History 62.5 mcg-vilant 25 mcg inhalat.powder (Trelegy Ellipta) pantoprazole 40 mg tablet,delayed 40 mg PO DAILY 04/12/22 Unknown H istory release potassium chloride 10 mEq 20 meq PO DAILY 04/12/22 Unknown H istory tablet,extended release finasteride 5 mg tablet 5 mg PO DAILY 04/11/23 Unknown His tory alfuzosin 10 mg tablet,extended 10 mg PO DAILY 04/12/23 Unknown Hi story release 24 hr cholecalciferol (vitamin D3) 25 50 mcg PO DAILY 04/12/23 Unknown H istory mcg (1,000 unit) capsule insulin aspart U-100 100 unit/mL See Rx Instructions .Route .COMPLE X 04/12/23 Unknown History subcutaneous solution (Novolog U-100 Insulin aspart) metformin 750 mg tablet,extended 750 mg PO QHS 04/12/23 Unknown His tory release 24 hr ascorbic acid (vitamin C) 1,000 mg 1 g PO DAILY 06/27/24 Unknown Hi story capsule insulin glargine U-300 conc 300 60 unit subcut DAILY 06/27/24 Unkn own History unit/mL (3 mL) subcutaneous pen (Toujeo Max U-300 SoloStar) zinc gluconate 30 mg tablet 30 mg PO DAILY 06/27/24 Unknown Hi story hydrocodone-acetaminoph en 5-325mg 1 tab PO Q6H PRN PRN Pain 4 days 10/12/24 Unknown Rx 5mg-325mg #15 TABLETS carbidopa 25 mg-levodopa 100 mg 2 tab PO .QID #720 tabs 12/11/24 U nknown Rx tablet donepezil 10 mg tablet 10 mg PO QHS #90 tabs 12/11/24 Unk nown Rx donepezil 5 mg tablet 5 mg PO QHS #30 tabs 12/11/24 Unkn own Rx propranolol 60 mg capsule,24 60 mg PO DAILY #90 caps 12/11/24 U nknown Rx hr,extended release doxepin 25 mg capsule 25 mg PO QHS #90 caps 12/19/24 Unk nown Rx ropinirole 1 mg tablet 1 mg PO BID #180 tabs 02/06/25 Unk nown Rx Allergy/AdvReac Type Severity Reaction Status Date / Time metoclopramide (From Reglan) Allergy Severe HYPER Verified 02/14/25 21:11 Family History Father Leukemia Surgical History History of total left knee replacement (TKR) History of left tennis elbow Hx of spinal fusion History of skin cancer Social History (Updated 02/14/25 @ 21:21 by Chayito Williamson) household members: spouse housing: house Smoking Status: Former smoker alcohol intake: never substance use type: does not use ROS ROS ED Review of Systems ROS Unobtainable: other Constitutional Constitutional ED: Reports lethargy; Denies chills, fever(s), sweats or weight loss Eyes Eyes: Denies blurry vision, change in vision or diplopia ENT ENT ED: Denies rhinorrhea or sore throat Cardiovascular Cardiovascular: Denies chest pain, orthopnea or racing heartbeat Respiratory/Chest Respiratory/Chest: Denies cough, dyspnea, dyspnea on exertion, orthopnea or sputum Gastrointestinal Gastrointestinal: Denies abdominal pain, diarrhea, nausea or vomiting Genitourinary Genitourinary ED: Denies dysuria, hematuria or urinary frequency Musculoskeletal Musculoskeletal: Reports neck pain; Denies arthralgias, back pain or myalgias Integumentary Denies abscess, Abrasions or rash Neurologic Neurologic: Reports headache(s); Denies weakness Psychiatric Psychiatric: Denies anxiety, depression or suicidal thoughts Endocrine Endocrinology: Denies polydipsia, polyphagia or polyuria Hematol (more content not included)... Normal [facility] Spine Cervical without Contr ason 02-14-2025 Spine Cervical without Contras [facility] Imaging Services [address] [place] [id number] Spine Cervical without Contras MR#: [id number] Acct: [id number] Name: KEVIN GRIFFITH Rep #: [id number] : 1945 M 79 From: Tatiana Guadalupe nd, MD PCP: Dr. Ron Cooley MD Status: REG ER Study: Spine Cervical without Contras Date of Exam: 0 02/14/25 Exam# [id number] Ordering Dr: Joe Soto DO PROCEDURE: SPINE CERVICAL WITHOUT CONTRAS 02/14/2025 REASON FOR EXAM: 79-year-old male, fall, hit head on concrete. TECHNIQUE: Cervical spine CT without contrast. Coronal and Sagittal reconstruction series were provided. One or more dose reduction techniques were used (e.g., Automated exposure control, adjustment of the mA and/or kV according to patient size, use of iterative reconstruction technique RADIATION DOSE SUMMARY: CTDlvol: 25 mGy DLP: 500 mGycm COMPARISON: CT C-spine 116 25. FINDINGS: Alignment: There is mild straightening of the normal cervical lordosis. No traumatic listhesis. Vertebrae: No acute osseous fracture. Mild chronic C5 and C6 vertebral body height loss. Multilevel degenerative disc disease. Soft Tissues: No prevertebral or subcutaneous hematoma. CT/Spine Cervical without Contras IMPRESSION: NO ACUTE CERVICAL FRACTURE. DEGENERATIVE CHANGES. Reading Location: [facility] CC: Dr. Ron Cooley MD; Dr. Joe Soto DO [employer] Cook: Signed Normal [facility] Neurology Visit Reporton Neurology Visit Report [facility] [address], [address] [place] [id number] OFFICE VISIT Date of Service: 02/06/25 MR#: [id number] Acct: [id number] Name: KEVIN GRIFFITH Rep #: [id number] : 1945 Provider: Dr. Vick beltran MD Age/Sex: 79/M Location: [facility] Status: Signed HPI HPI Chief Complaint: Details: Interim History: Kevin returns for follow-up visit. 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 He is accompanied by his . In 2020, he began to exhibit a tremor in both hands that was most prominent at rest. The tremor worsened over time. He also began to exhibit some forgetfulness. On evaluation by neurologist in November 2021, he was diagnosed with Parkinson's disease. Carbidopa/levodopa 25/100 was initiated and he currently takes 2 tablets 4 times daily and this is of slight benefit. In 2021, he began to exhibit gait imbalance and this worsened over time. He has had multiple falls and with one of his falls in 2021, he sustained a concussion. His falls were, at times, preceded by feeling of lightheadedness; he no longer feels lightheaded. He reports that his visual impairment (blurring of vision and diplopia) impair his ability to walk. He has had diplopia since 2020. He has bilateral eye extraocular muscle weakness. He uses prism glasses but does not feel these are of significant benefit. He has had multiple further falls recently. He does not have vertigo. He has neck pain. He has had bilateral total knee joint replacements. He ambulates with a rollator or a 4-prong cane. He denied having headaches, numbness or weakness. He has chronic hearing loss and has hearing aids. He has used an eye patch. he has some dysequilibrium. He has had some hypophonia. His handwriting has become smaller and coarser. He occasionally has dysphagia that produces coughing when he eats. A modified barium swallow in 2023 revealed mild o ropharyngeal dysphagia. His memory difficulty has manifested with forgetting and repeating conversations. He had become lost in familiar surroundings when driving and no longer drives. He has a tendency to lose his train of thought. He has word finding difficulty. He has some disorganization in his mentation when he speaks. He has exhibited impulsive speech and has, at times, made inappropriate comments for the social situation he is engaged in; this pattern is atypical for him. Donepezil was not well tolerated (caused sedation) and was discontinued. Doxepin is of benefit for his insomnia. He stated that he no longer had anxiety and he discontinued buspirone. He has chronic low back pain and has had lumbar surgeries in 2000 and 2018. 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 He has also had a lumbar radiofrequency ablation. His tremor is more prominent at rest. When his tremor is pronounced he has difficulty with activities such as using a computer mouse. Propranolol ER is of benefit for his tremor. Physical therapy was not of benefit for his gait imbalance. He previously had occasional freezing episodes. He sustained a right fibular fracture in 2022 with one of his falls; this was treated nonsurgically Mini-Mental status exam score was 25/30 in March 2023. Bilateral lower extremity EMG/nerve conduction studies reveal a sensorimotor polyneuropathy. No lumbar radiculopathy was noted. A B12 1500 mcg IM was not of benefit for his fatigue. Trazodone and mirtazapine were not of benefit for his insomnia. Nourianz was not covered on his insurance plan without a trial of at least 2 of the following in any of the 3 classes: Dopamine agonists, monoamine oxidase inhibitors (selegiline, rasagiline), COMT inhibitor (tolcapone, entacapone). His serum free light chains was abnormal. A subsequent serum protein electrophoresis, serum immunofixation and urine immunofixation were normal. His head MRI with attention to the orbits in March 2024 did not reveal pathology that would account for his diplopia; moderate diffuse cerebral atrophy and minimal subcortical white matter chronic small vessel ischemic disease were noted. 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 Normal visualized soft tissue structures. Normal bilate (more content not included)... Normal [facility] Chest PA and Lateralon 01-21 Chest PA and Lateral [facility] Imaging Services [address] [place], [place] [id number] Chest PA and Lateral MR#: [id number] Acct: [id number] Name: KEVIN GRIFFITH Rep #: [id number] : 1945 M 79 From: Donnell Corey MD PCP: Dr. Ron Cooley MD Status: REG CLI Study: Chest PA and Lateral Date of Exam: 01/21/25 Exam# [id number] Ordering Dr: Ron Cooley MD EXAM: XR Chest, 2 Views CLINICAL INDICATION: TECHNIQUE: Frontal and lateral views of the chest. COMPARISON: No relevant prior studies available. FINDINGS: LUNGS AND PLEURAL SPACES: Unremarkable. No consolidation. No pneumothorax. HEART: Unremarkable. No cardiomegaly. MEDIASTINUM: Unremarkable. Normal mediastinal contour. BONES/JOINTS: Unremarkable. No acute fracture. RAD/Chest PA and Lateral IMPRESSION: No acute cardiopulmonary process. Reading Location: [facility] CC: Dr. Ron Cooley MD [employer] Cook: Signed Normal [facility] Microalb:Creat Ratio,Random URon 12-10-2024 Creatinine [Mass/Vol] 104.00 mg/dL Normal NO RAN GE EST. [facility] Comment on above: Order Comment: Order Date: 12/04/24Order Info: 0779-1 - MIACRE Performed By: #### L 501.4100, L501.4405, L500.2500, L501.9985 #### [facility] Laboratory [address] [place], [place], [address] MALB:CRE 17.0 mg/g CRE Normal <30 mg/g CRE [facility] Comment on above: Order Comment: Order Date: 12/04/24Order Info: 0779-1 - MIACRE Performed By: #### L 501.4100, L501.4405, L500.2500, L501.9985 #### [facility] [address] [place], [place], [address] MICROALBUMIN,UR 17.7 mg/L Normal NO RANGE EST. [facility] Comment on above: Order Comment: Order Date: 12/04/24Order Info: 0779-1 - MIACRE Performed By: #### L 501.4100, L501.4405, L500.2500, L501.9985 #### [facility] [address] [place], [place], [address] Neurology Visit Reporton Neurology Visit Report [facility] [address], [address] [place], [place] [address] OFFICE VISIT Date of Service: 12/10/24 MR#: [id number] Acct: [id number] Name: KEVIN GRIFFITH Rep #: [id number] : 1945 Provider: Dr. Vick beltran MD Age/Sex: 79/M Location: [facility] [place] Status: Signed with Addenda ADDENDUM by Dr. Vick Santo MD on 12/19/24 at 1123 Addendum Addendum (12/19/2024): The patient has insomnia and wishes to resume doxepin. Doxepin 25 mg nightly will be resumed. 12/19/24 1123 Date Vick Santo MD cc: * Signed HPI [facility] Chief Complaint: Details: Interim History: Kevin returns for follow-up visit. 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 He is accompanied by his . In 2020, he began to exhibit a tremor in both hands that was most prominent at rest. The tremor worsened over time. He also began to exhibit some forgetfulness. On evaluation by neurologist in November 2021, he was diagnosed with Parkinson's disease. Carbidopa/levodopa 25/100 was initiated and he currently takes 2 tablets 4 times daily and this is of slight benefit. In 2021, he began to exhibit gait imbalance and this worsened over time. He has had multiple falls and with one of his falls in 2021, he sustained a concussion. His falls are often preceded by feeling of lightheadedness. He does not have vertigo. He has a tendency to fall backwards. He has neck pain. He has had bilateral total knee joint replacements. He ambulates with a rollator or a 4- prong cane. He denied having headaches, numbness or weakness. He has chronic hearing loss and has hearing aids. He attributes some of his gait impairment to visual impairment (particularly diplopia; he has weakness of the abducens muscles bilaterally. He has used an eye patch. He has prism glasses but does not feel these are of benefit He has had some hypophonia. His handwriting has become smaller and coarser. He occasionally has dysphagia that produces coughing when he eats. A modified barium swallow in 2023 revealed mild oropharyngeal dysphagia. His memory difficulty has manifested with forgetting and repeating conversations. He had become lost in familiar surroundings when driving and no longer drives. He has a tendency to lose his train of thought. He has word finding difficulty. He has some disorganization in his mentation when he speaks. He has exhibited impulsive speech and has, at times, made inappropriate comments for the social situation he is engaged in; this pattern is atypical for him. No recent change in his memory is reported. He has anxiety. Doxepin has lost efficacy for his insomnia. He states that he no longer has anxiety and no longer wishes to take buspirone. He has chronic low back pain and has had lumbar surgeries in 2000 and 2018. 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 He has also had a lumbar radiofrequency ablation. His tremor is more prominent at rest. When his tremor is pronounced he has difficulty with activities such as using a computer mouse. Propranolol ER is of benefit for his tremor. Physical therapy was not of benefit for his gait imbalance. He has been experiencing diplopia since 2020. Use of prism glasses or eye patches are of benefit. He previously had occasional freezing episodes. He sustained a right fibular fracture in 2022 with one of his falls; this was treated nonsurgically Mini-Mental status exam score was 25/30 in March 2023. Bilateral lower extremity EMG/nerve conduction studies reveal a sensorimotor polyneuropathy. No lumbar radiculopathy was noted. B12 1500 mcg IM was not of benefit for his fatigue. Trazodone and mirtazapine were not of benefit for his insomnia. Nourianz was not covered on his insurance plan without a trial of at least 2 of the following in any of the 3 classes: Dopamine agonists, monoamine oxidase inhibitors (selegiline, rasagiline), COMT inhibitor (tolcapone, entacapone). His serum free light chains was abnormal. A subsequent serum protein electrophoresis, serum immunofixation and urine immunofixation were normal. The patient's head MRI with attention to the orbits in March 2024 did not reveal pathology that would account for his chronic diplopia; moderate diffuse age-related cerebral atrophy is noted; minimal subcortical white matter chronic small vessel ischemic disease is noted Physical Exam: Neuro: The patient is awake; he is slightly bradyphrenic; no rigidity is noted in the wrists; no tremor is noted; gait is mildly slow; no rigidity is noted in the wrists; visual acuity is 20/20 on the right and 20/30 on the left; visual lund are full; he exhibits bilateral ab (more content not included)... Normal [facility] Random urine microalbumin me asurementOrdered By: Ron Cooley on 12-10-2024 Urine Random Microalbumin 17.7 mg/L NO RANGE EST. [facility] Urine albumin/creatinine rat io for detection of microalbuminuriaOrdered By: Ron Cooley on 12-10-2024 Urine Microalbumin/Creatinine Ratio 17.0 mg/g CRE <30 [facility] Urine creatinine measurement (mass/volume)Ordered By: Ron Cooley on 12-10-2024 Creatinine (U) [Mass/Vol] 104.00 mg/dL NO RANGE EST. [facility] Brain/Head without Contrasto n 12-05-2024 Brain/Head without Contrast [facility] Imaging Services [address] [place], [place] [address] [place] [address] Brain/Head without Contrast MR#: [id number] Acct: [id number] Name: KEVIN GRIFFITH Rep #: [id number] : 1945 M 79 From: Siva Horton DO PCP: Dr. Ron Cooley MD Status: PRE ER Study: Brain/Head without Contrast Date of Exam: 11/20 05/14 Exam# [id number] Ordering [place]: [place] [id number] STUDY: CT BRAIN WITHOUT CONTRAST REASON FOR EXAM: Male, 79 years old. fall RADIATION DOSAGE (If Supplied By Facility): CTDIvol = ( 44.99 ) mGy, DLP = ( 829.85 ) mGycm TECHNIQUE: Transaxial CT imaging of the brain was performed without administration of intravenous contrast material. Individualized dose optimization techniques were used for this CT. COMPARISON: No relevant priors. FINDINGS: Normal soft tissue structures. Normal calvarium. Slightly prominent ventricles and extra-axial spaces with atrophy. Normal white matter tracts of the cerebral hemispheres. Normal basal ganglia and thalami. Normal brainstem. Normal cerebellum. There is no intracranial hemorrhage. There are no findings of an acute ischemic infarction. Normal visualized paranasal sinuses. CT/Brain/Head without Contrast IMPRESSION: No acute intracranial pathology of the brain. Electronically Signed: Siva Horton DO at 17:20 EST Reading Location ID and State: [facility] / [place] Tel [phone], Service support , CC: Dr. Ron Cooley MD; Dr. Estuardo Mccormack DO [employer] Cook: Signed Normal [facility] Emergency Department Summary on 12-05-2024 Emergency Department Summary [facility] Medical Records Department [address] [place] [address] Emergency Department Summary 12/05/24 MR#: [id number] Acct: [id number] Name: KEVIN GRIFFITH Rep #: [id number] : 1945 79 From: Estuardo Mccormack DO PCP: Dr. Ron Cooley MD Status:DEP ER Location: ED HPI HPI - Fall History of Present Illness Chief Complaint: Fall PFSH PFS Medical History Parkinson's disease Right bundle branch block (RBBB) Obesity Type 2 diabetes mellitus Essential (primary) hypertension Cataract Back problem Arthritis HLD (hyperlipidemia) Paroxysmal atrial fibrillation Home Medications ???Medication ???Instructions ???Recorded ???Last Taken ???Type pravastatin 80 mg tablet 80 mg PO QDAY 04/06/18 Unknown History hydrochlorothiazide 12.5 mg tablet 12.5 mg PO DAILY 04/12/21 Unknown History fluticasone fur. 200 mcg-umeclid 1 inh inhalation DAILY 04/12/22 Unknown History 62.5 mcg-vilant 25 mcg inhalat.powder (Trelegy Ellipta) pantoprazole 40 mg tablet,delayed 40 mg PO DAILY 04/12/22 Unknown History release potassium chloride 10 mEq 20 meq PO DAILY 04/12/22 Unknown History tablet,extended release finasteride 5 mg tablet 5 mg PO DAILY 04/11/23 Unknown History alfuzosin 10 mg tablet,extended 10 mg PO DAILY 04/12/23 Unknown History release 24 hr cholecalciferol (vitamin D3) 25 50 mcg PO DAILY 04/12/23 Unknown History mcg (1,000 unit) capsule insulin aspart U-100 100 unit/mL See Rx Instructions .Route .COMPLEX 04/12/23 Unknown History subcutaneous solution (Novolog U-100 Insulin aspart) metformin 750 mg tablet,extended 750 mg PO QHS 04/12/23 Unknown History release 24 hr ascorbic acid (vitamin C) 1,000 mg 1 g PO DAILY 06/27/24 Unknown History capsule insulin glargine U-300 conc 300 60 unit subcut DAILY 06/27/24 Unknown History unit/mL (3 mL) subcutaneous pen (Toujeo Max U-300 SoloStar) zinc gluconate 30 mg tablet 30 mg PO DAILY 06/27/24 Unknown History doxepin 25 mg capsule 25 mg PO QHS #90 caps 07/01/24 Unknown Rx buspirone 5 mg tablet 5 mg PO TID #270 tabs 09/02/24 Unknown Rx carbidopa 25 mg-levodopa 100 mg 2 tab PO .QID #720 tabs 09/02/24 Unknown Rx tablet propranolol 60 mg capsule,24 60 mg PO DAILY #90 caps 09/02/24 Unknown Rx hr,extended release hydrocodone-acetaminoph en 5-325mg 1 tab PO Q6H PRN PRN Pain 4 days 10/12/24 Unknown Rx 5mg-325mg #15 TABLETS Allergy/AdvReac Type Severity Reaction Status Date / Time metoclopramide (From Reglan) Allergy Severe HYPER Verified 12/05/24 16:31 Family History Father Leukemia Surgical History History of total left knee replacement (TKR) History of left tennis elbow Hx of spinal fusion History of skin cancer Social History (Updated 10/12/24 @ 11:[address] Osman Farooq MD) household members: spouse Smoking Status: Former smoker alcohol intake: never substance use type: does not use EXAM Physical Exam Const Vital Signs: 12/05/24 16:30 12/05/24 17:16 12/05/24 18:33 Temperature 97.8 F Temperature Source Temporal Pulse Rate 73 74 Respiratory Rate 18 16 Respiratory Effort Normal Respiratory Depth Normal Respiratory Pattern Normal Blood Pressure 140/67 H 132/87 H Blood Pressure Mean 91 102 Pulse Ox 93 99 Oxygen Delivery Method Room Air Room Air Room Air 12/05/24 19:35 Temperature 98 F Temperature Source Pulse Rate 67 Respiratory Rate 18 Respiratory Effort Respiratory Depth Respiratory Pattern Blood Pressure 118/75 Blood Pressure Mean 89 Pulse Ox 97 Oxygen Delivery Method MDM MDM MDM Narrative Medical decision making narrative: HISTORY OF PRESENT ILLNESS: 79-year-old male presents with fall. Notes head trauma. Complains of laceration of scalp. Notes headache. REVIEW OF SYSTEMS: Pertinent positives: Head trauma Pertinent negatives: Loss of consciousness PHYSICAL EXAM: Nursing triage notes reviewed, Vital signs reviewed Primary Survey Airway: Intact Breathing: Bilateral breath sounds Circulation: Palpable bilateral femorals, Palpable bilateral radial, Palpable bilateral DP and Palpable bilateral PT Disability / Spine precautions GCS Score: Eye Openin Verbal Response: 5 Motor Response: 6 Secondary Survey Constitutional: Please see MDM Head: 4-5 centimeter superficial linear laceration to the occiput Eye: Pupils equal round and reactive to light, Extraocular muscles intact and No periorbital ecchymosis or stepoff, no evidence of entrapment ENT: Oropharynx clear, no lacerations, no hemotympanum, no raccoon e (more content not included)... Normal [facility] Spine Cervical without Contr ason 12-05-2024 Spine Cervical without Contras [facility] Imaging Services [address] [place], [place] [address] Spine Cervical without Contras MR#: [id number] Acct: [id number] Name: KEVIN GRIFFITH Rep #: [id number] : 1945 M 79 From: Siva Horton DO PCP: Dr. Ron Cooley MD Status: REG ER Study: Spine Cervical without Contras Date of Exam: 0 12/05/24 Exam# [id number] Ordering Dr: [place] [id number] STUDY: CT CERVICAL SPINE WITHOUT CONTRAST REASON FOR EXAM: Male, 79 years old. midline C-spine TTP RADIATION DOSAGE (If Supplied By Facility): CTDIvol = ( 26.81 ) mGy, DLP = ( 644.49 ) mGycm TECHNIQUE: High resolution transaxial imaging was performed without contrast material. Sagittal and coronal images were reconstructed. Individualized dose optimization techniques were used for this CT. COMPARISON: None FINDINGS: Normal craniovertebral junction. Normal anterior atlantoaxial articulation. Normal odontoid process. Straightening of the cervical lordosis. Normal vertebral bodies and posterior osseous elements. C2-3: Normal endplates. Normal disc height and morphology. Normal central canal and intervertebral neuroforamina. C3-4: Mild spurring at the endplates. Narrowed disc height. Normal central canal. Uncovertebral spurs narrowing the left intervertebral neural foramen. C4-5: Mild spurring at the endplates. Narrowed disc height. Normal central canal. Uncovertebral spurs slightly narrowing the intervertebral neuroforamina. C5-6: Mild spurring at the endplates. Narrowed disc height. Normal central canal. Uncovertebral spurs slightly narrowing the intervertebral neuroforamina, left more than right. C6-7: Mild spurring at the endplates. Narrowed disc height. Normal central canal. Uncovertebral spur slightly narrowing the right intervertebral neural foramen. C7-T1: Normal endplates. Normal disc height and morphology. Normal central canal and intervertebral neuroforamina. Normal visualized soft tissue structures. CT/Spine Cervical without Contras IMPRESSION: Degenerative changes of the cervical spine. Electronically Signed: Siva Horton DO at 18:32 EST Reading Location ID and State: [address] [place] [address] Tel [phone], Service support , CC: Dr. Ron Cooley MD; Dr. Estuardo Mccormack DO [employer] Cook: Signed Normal [facility] [id number] DOrdered By: Chetan Cooley on 12-04-2024 Vitamin D 25-Hydroxy 47.5 ng/mL [facility] Comment on above: Vitamin D 25(OH) Sta tus Range Deficiency <20 ng/mL (50nmol/L) Insufficiency 20 - 30 ng/mL (50 - 75 nmol/L) Sufficiency 30 - 100 ng/mL (75 - 250 nmol/L) Toxicity >100 ng/mL (>250 nmol/L) Absolute lymphocyte countOrd ered By: Ron Cooley on 12-04-2024 Lymphocytes Auto (Unsp spec) [#/Vol] 3.42 10*3/uL 0.83-4.51 [facility] Absolute neutrophil countOrd ered By: Ron Cooley on 12-04-2024 Neutrophils (Bld) [#/Vol] 5.9 10*3/uL 2.0-7.7 [facility] Albumin to globulin ratioOrd ered By: Ron Cooley on 12-04-2024 Albumin/Globulin [Mass ratio] 1.0 {ratio} 0.9-2.4 [facility] Automated lymphocyte count a s percentage of total leukocytesOrdered By: Ron Shepparddelia on 12-04-2024 Lymphocytes/100 WBC Auto (Unsp spec) 31.5 % [facility] Basophil percentageOrdered B y: Ron Cooley on 12-04-2024 Basophils/100 WBC (Bld) 1.2 % High 0-1 [facility] Bilirubin, totalOrdered By: Ron Mendozapriti on 12-04-2024 Bilirubin [Mass/Vol] 0.80 mg/dL 0.20-1.00 [facility] Comment on above: For patients on eltr ombopag therapy, use of Dimension [place] TBIL is not recommended. Blood urea nitrogen (BUN)/cr eatinine ratioOrdered By: Ron Cooley on 12-04-2024 Urea nitrogen/Creatinine [Mass ratio] 19.7 mg/mg 10-20 [facility] CBC W/Diff, Automatedon 11-20 Absolute Lymph 3.42 X10 3/uL Normal 0.83-4.51 [facility] Comment on above: Order Comment: Order Date: 03/13/25 Order Info: 0786-1 - CMP Order Info: [id number] - LIPID Performed By: #### L 500.4100 #### [facility] [address] [place], [place], [address] (148) Absolute Neut 5.9 X10 3/uL Normal 2.0-7.7 [facility] Comment on above: Order Comment: Order Date: 03/13/25 Order Info: 0786-1 - CMP Order Info: [id number] - LIPID Performed By: #### L 500.4100 #### [facility] [address] [place], [address] Basophils/100 WBC (Bld) 1.2 % High 0-1 [facility] Comment on above: Order Comment: Order Date: 03/13/25 Order Info: 0786-1 - CMP Order Info: [id number] - LIPID Performed By: #### L 500.4100 #### [facility] [address] [place], [address] Eosinophils/100 WBC (Bld) 1.8 % Normal 0-5 [facility] Comment on above: Order Comment: Order Date: 03/13/25 Order Info: 0786-1 - CMP Order Info: [id number] - LIPID Performed By: #### L 500.4100 #### [facility] [address] [place], [address] Erythrocyte distribution width (RBC) [Ratio] 13.4 % Normal 11.6-14.6 [facility] Comment on above: Order Comment: Order Date: 03/13/25 Order Info: 785- - CMP Order Info: [id number] - LIPID Performed By: #### L 500.4100 #### [facility] [address] [place], [address] Hematocrit (Bld) [Volume fraction] 47.1 % Normal 40-54 [facility] Comment on above: Order Comment: Order Date: 03/13/25 Order Info: 0786 - CMP Order Info: [id number] - LIPID Performed By: #### L 500.4100 #### [facility] [address] [place], [address] Hemoglobin (Bld) [Mass/Vol] 15.4 g/dL Normal 13.0-16.5 [facility] Comment on above: Order Comment: Order Date: 03/13/25 Order Info: 0786- - CMP Order Info: [id number] - LIPID Performed By: #### L 500.4100 #### [facility] [address] [place], [address] IG% 0.600 Normal 0.0-0.9 [facility] Comment on above: Order Comment: Order Date: 03/13/25 Order Info: 0786-1 - CMP Order Info: [id number] - LIPID Result Comment: IG% - Immature Granulocytes (promyelocytes, myelocytes and metamyelocytes) > 1% indicates that a LEFT SHIFT is Present. Performed By: #### L 500.4100 #### [facility] [address] [place], [address] Lymphocytes/100 WBC (Bld) 31.5 % Normal 19-41 [facility] Comment on above: Order Comment: Order Date: 03/13/25 Order Info: 07- - CMP Order Info: - LIPID Performed By: #### L 500.4100 #### [facility] [address] [place], [address] MCH (RBC) [Entitic mass] 30.4 pg Normal 27.0-32.0 [facility] Comment on above: Order Comment: Order Date: 03/13/25 Order Info: 785-1 - CMP Order Info: - LIPID Performed By: #### L 500.4100 #### [facility] [address] [place], [address] MCHC (RBC) [Mass/Vol] 32.7 g/dL Normal 32-36 [facility] Comment on above: Order Comment: Order Date: 03/13/25 Order Info: 785- - CMP Order Info: - LIPID Performed By: #### L 500.4100 #### [facility] [address] [place], [address] MCV (RBC) [Entitic vol] 92.9 fL Normal 80-94 [facility] Comment on above: Order Comment: Order Date: 03/13/25 Order Info: 07-1 - CMP Order Info: [id number] - LIPID Performed By: #### L 500.4100 #### [facility] [address] [place], [address] Monocytes/100 WBC (Bld) 10.8 % High 0-10 [facility] Comment on above: Order Comment: Order Date: 03/13/25 Order Info: 0786-1 - CMP Order Info: [id number] - LIPID Performed By: #### L 500.4100 #### [facility] [address] [place], [address] Neutrophils/100 WBC (Bld) 54.1 % Normal 47-70 [facility] Comment on above: Order Comment: Order Date: 03/13/25 Order Info: 0786- - CMP Order Info: [id number] - LIPID Performed By: #### L 500.4100 #### [facility] [address] [place], [address] Nucleated RBC (Bld) [#/Vol] 0 10*3/uL Normal 0-5 [facility] Comment on above: Order Comment: Order Date: 03/13/25 Order Info: 0786- - CMP Order Info: [id number] - LIPID Performed By: #### L 500.4100 #### [facility] [address] [place], [address] Platelet mean volume (Bld) [Entitic vol] 10.8 fL Normal 6.2-12.0 [facility] Comment on above: Order Comment: Order Date: 03/13/25 Order Info: 0786- - CMP Order Info: [id number] - LIPID Performed By: #### L 500.4100 #### [facility] [address] [place], [address] Platelets (Bld) [#/Vol] 281 10*3/uL Normal 150-450 [facility] Comment on above: Order Comment: Order Date: 03/13/25 Order Info: 0786- - CMP Order Info: [id number] - LIPID Performed By: #### L 500.4100 #### [facility] [address] [place], [address] RBC (Bld) [#/Vol] 5.07 10*6/uL Normal 4.6-6.2 [facility] Comment on above: Order Comment: Order Date: 03/13/25 Order Info: 0786-1 - CMP Order Info: [id number] - LIPID Performed By: #### L 500.4100 #### [facility] [address] [place], [place], [address] RDW SD 45.1 fl High 35.1-43.9 [facility] Comment on above: Order Comment: Order Date: 03/13/25 Order Info: 0786- - CMP Order Info: [id number] - LIPID Performed By: #### L 500.4100 #### [facility] [address] [place], [place], [address] WBC (Bld) [#/Vol] 10.9 10*3/uL Normal 4.4-11.0 [facility] Comment on above: Order Comment: Order Date: 03/13/25 Order Info: 07-1 - CMP Order Info: [id number] - LIPID Performed By: #### L 500.4100 #### [facility] [address] [place], [place], [address] Carbon dioxide measurementOr dered By: Ron Cooley on 12-04-2024 CO2 [Moles/Vol] 29.0 mmol/L 21.0-32.0 [facility] Chloride measurementOrdered By: Ron Cooley on 12-04-2024 Chloride [Moles/Vol] 105 mmol/L 98-107 [facility] Comprehensive Metabolic Prof ilon 12-04-2024 Albumin [Mass/Vol] 3.7 g/dL Normal 3.2-5.0 [facility] Comment on above: Order Comment: Order Date: 03/13/25 Order Info: 0786-1 - CMP Order Info: [id number] - LIPID Performed By: #### L 500.4100 #### [facility] [address] [place], [place], [id number] Albumin/Globulin [Mass ratio] 1.0 {ratio} Normal 0.9-2.4 [facility] Comment on above: Order Comment: Order Date: 03/13/25 Order Info: 0786-1 - CMP Order Info: [id number] - LIPID Performed By: #### L 500.4100 #### [facility] [address] [place], [address] ALK P 91 U/L Normal 45-117 [facility] Comment on above: Order Comment: Order Date: 03/13/25 Order Info: 0786-1 - CMP Order Info: [id number] - LIPID Performed By: #### L 500.4100 #### [facility] [address] [place], [address] ALT [Catalytic activity/Vol] 11 U/L Low 16-61 [facility] Comment on above: Order Comment: Order Date: 03/13/25 Order Info: 785-1 - CMP Order Info: [id number] - LIPID Performed By: #### L 500.4100 #### [facility] [address] [place], [address] AST [Catalytic activity/Vol] 13 U/L Low 15-37 [facility] Comment on above: Order Comment: Order Date: 03/13/25 Order Info: 0786- - CMP Order Info: [id number] - LIPID Performed By: #### L 500.4100 #### [facility] [address] [place], [address] Bilirubin [Mass/Vol] 0.80 mg/dL Normal 0.20-1.00 [facility] Comment on above: Order Comment: Order Date: 03/13/25 Order Info: 0786-1 - CMP Order Info: [id number] - LIPID Result Comment: For patients on eltrombopag therapy, use of Dimension [place] TBIL is not recommended. Performed By: #### L 500.4100 #### [facility] [address] [place], [address] BUN/CRE 19.7 RATIO Normal 10-20 [facility] Comment on above: Order Comment: Order Date: 03/13/25 Order Info: 0786-1 - CMP Order Info: [id number] - LIPID Performed By: #### L 500.4100 #### [facility] [address] [place], [address] CA,Total 9.4 mg/dL Normal 8.5-10.1 [facility] Comment on above: Order Comment: Order Date: 03/13/25 Order Info: 0786-1 - CMP Order Info: [id number] - LIPID Performed By: #### L 500.4100 #### [facility] [address] [place], [address] Chloride [Moles/Vol] 105 mmol/L Normal 98-107 [facility] Comment on above: Order Comment: Order Date: 03/13/25 Order Info: 07-1 - CMP Order Info: [id number] - LIPID Performed By: #### L 500.4100 #### [facility] [address] [place], [address] CO2 [Moles/Vol] 29.0 mmol/L Normal 21.0-32.0 [facility] Comment on above: Order Comment: Order Date: 03/13/25 Order Info: 0786 - CMP Order Info: [id number] - LIPID Performed By: #### L 500.4100 #### [facility] [address] [place], [address] Creatinine [Mass/Vol] 0.96 mg/dL Normal 0.70-1.30 [facility] Comment on above: Order Comment: Order Date: 03/13/25 Order Info: 0786-1 - CMP Order Info: [id number] - LIPID Result Comment: The validity of the calculated GFR GFRAA in patients over 70 years has not been determined. Clinical correlation is essential. Performed By: #### L 500.4100 #### [facility] [address] [place], [address] EST GFR - AA 97 mL/min Normal >60 [facility] Comment on above: Order Comment: Order Date: 03/13/25 Order Info: 0786-1 - CMP Order Info: [id number] - LIPID Result Comment: Afri can Bur[place]ian GFR Calc Performed By: #### L 500.4100 #### [facility] [address] [place], [place], [id number] GAP 5 Normal 5-15 [facility] Comment on above: Order Comment: Order Date: 03/13/25 Order Info: 07 - CMP Order Info: [id number] - LIPID Performed By: #### L 500.4100 #### [facility] [address] [place], [address] GFR/1.73 sq M.predicted among non-blacks MDRD (S/P/Bld) [Vol rate/Area] 80 mL/min/{1.73_m2} Normal >60 [facility] Comment on above: Order Comment: Order Date: 03/13/25 Order Info: 07 - CMP Order Info: [id number] - LIPID Result Comment: Non- GFR Calc Performed By: #### L 500.4100 #### [facility] [address] [place], [place], [id number] Globulin (S) [Mass/Vol] 3.7 g/dL Normal 2.2-4.2 [facility] Comment on above: Order Comment: Order Date: 03/13/25 Order Info: 0786- - CMP Order Info: [id number] - LIPID Performed By: #### L 500.4100 #### [facility] [address] [place], [address] Glucose [Mass/Vol] 48 mg/dL Low 74-106 [facility] Comment on above: Order Comment: Order Date: 03/13/25 Order Info: 0786-1 - CMP Order Info: [id number] - LIPID Result Comment: Gluc ose result less than 50 mg/dL suggests HYPOGLYCEMIA. Performed By: #### L 500.4100 #### [facility] [address] [place], [place], [id number] Potassium [Moles/Vol] 3.9 mmol/L Normal 3.5-5.1 [facility] Comment on above: Order Comment: Order Date: 03/13/25 Order Info: 0786-1 - CMP Order Info: [id number] - LIPID Performed By: #### L 500.4100 #### [facility] [address] [place], [address] Sodium [Moles/Vol] 139 mmol/L Normal 136-145 [facility] Comment on above: Order Comment: Order Date: 03/13/25 Order Info: 0786-1 - CMP Order Info: [id number] - LIPID Performed By: #### L 500.4100 #### [facility] [address] [place], [place], [address] T PROT 7.4 g/dL Normal 6.4-8.2 [facility] Comment on above: Order Comment: Order Date: 03/13/25 Order Info: 0786-1 - CMP Order Info: [id number] - LIPID Performed By: #### L 500.4100 #### [facility] [address] [place], [place], [address] Urea nitrogen [Mass/Vol] 19 mg/dL High 7-18 [facility] Comment on above: Order Comment: Order Date: 03/13/25 Order Info: [id number] - CMP Order Info: [id number] - LIPID Performed By: #### L 500.4100 #### [facility] [address] [place], [address] Eosinophil percentageOrdered By: Ron Cooley on 12-04-2024 Eosinophils/100 WBC (Bld) 1.8 % 0-5 [facility] Erythrocyte distribution wid th ratioOrdered By: Ron Cooley on 12-04-2024 Erythrocyte distribution width (RBC) [Ratio] 13.4 % 11.6-14.6 [facility] Erythrocyte distribution wid th standard deviationOrdered By: Ron Cooley on 12-04-2024 Erythrocyte distribution width (RBC) [Entitic vol] 45.1 fL High 35.1-43.9 [facility] Erythrocyte distribution width (RBC) [Ratio] 45.1 fl High 35.1-43.9 [facility] Estimated glomerular filtrat ion rate (GFR) AmericanOrdered By: Ron Cooley on 12-04-2024 Estimated GFR (MDRD) Amer 97 mL/min >60 [facility] Comment on above: GFR Calc Glomerular filtration rate ( GFR) estimationOrdered By: Ron Cooley on 12-04-2024 Estimated GFR (MDRD) Non-Af Amer 80 mL/min >60 [facility] Comment on above: Non- GFR Calc GFR/1.73 sq M.predicted among non-blacks MDRD (S/P/Bld) [Vol rate/Area] 80 mL/min/{1.73_m2} >60 [facility] Comment on above: Non- GFR Calc Glucose measurementOrdered B y: Ron Cooley on 12-04-2024 Glucose [Mass/Vol] 48 mg/dL Low 74-106 [facility] Comment on above: Glucose result less than 50 mg/dL suggests HYPOGLYCEMIA. Hematocrit Auto (Bld) [Volum e fraction]Ordered By: Ron Cooley on 12-04-2024 Hematocrit (Bld) [Volume fraction] 47.1 % 40-54 [facility] Hemoglobin A1con 12-04-2024 HbA1c (Bld) [Mass fraction] 6.5 % High 3.8-5.6 [facility] Comment on above: Order Comment: Order Date: 03/13/25 Order Info: 0786-1 - CMP Order Info: [id number] - LIPID Result Comment: Norm al < 5.7 % Prediabetic 5.7 - 6.4 % Diabetic >or= 6.5 % Please note range changes. Performed By: #### L 556.2616 #### [facility] [address] [place], [address] Hemoglobin A1c percentageOrd ered By: Ron Cooley on 12-04-2024 HbA1c (Bld) [Mass fraction] 6.5 % High 3.8-5.6 [facility] Comment on above: Normal < 5.7 % Predi abetic 5.7 - 6.4 % Diabetic >or= 6.5 % Please note range changes. Hemoglobin measurementOrdere d By: Ron Cooley on 12-04-2024 Hemoglobin (Bld) [Mass/Vol] 15.4 g/dL 13.0-16.5 [facility] High density lipoprotein (HD L) measurementOrdered By: Ron Cooley on 12-04-2024 Cholesterol in HDL [Mass/Vol] 45 mg/dL >40 [facility] Comment on above: The drugs N-Acetylcy steine and Metamizole may falsely depress this assay. Reference Range HDL <40 mg/dL Low HDL Cholesterol HDL >or= 60 mg/dL High HDL Cholesterol Immature granulocytes/100 WB C Auto (Bld)Ordered By: Ron Cooley on 12-04-2024 Immature granulocytes/100 WBC (Bld) 0.600 % 0.0-0.9 [facility] Comment on above: IG% - Immature Granu locytes (promyelocytes, myelocytes and metamyelocytes) > 1% indicates that a LEFT SHIFT is Present. Laboratory - Chemistry and C hemistry - challengeOrdered By: Ron Cooley on 12-04-2024 AST [Catalytic activity/Vol] 13 U/L Low 15-37 [facility] Lipid Profileon 12-04-2024 Cholesterol [Mass/Vol] 192 mg/dL Normal 200 [facility] Comment on above: Order Comment: Order Date: 03/13/25 Order Info: 0786-1 - CMP Order Info: [id number] - LIPID Result Comment: <200 mg/dL Desirable 200-240 mg/dL Borderline >240 mg/dL High Risk Performed By: #### L 500.4100 #### [facility] [address] [place], [address] Cholesterol in HDL [Mass/Vol] 45 mg/dL Normal [facility] Comment on above: Order Comment: Order Date: 03/13/25 Order Info: 0786-1 - CMP Order Info: [id number] - LIPID Result Comment: The drugs N-Acetylcysteine and Metamizole may falsely depress this assay. Reference Range HDL <40 mg/dL Low HDL Cholesterol HDL >or= 60 mg/dL High HDL Cholesterol Performed By: #### L 500.4100 #### [facility] [address] [place], [address] Cholesterol in LDL [Mass/Vol] 116 mg/dL Normal 0-130 [facility] Comment on above: Order Comment: Order Date: 03/13/25 Order Info: [id number] - CMP Order Info: [id number] - LIPID Performed By: #### L 500.4100 #### [facility] [address] [place], [address] Cholesterol in VLDL [Mass/Vol] 31 mg/dL Normal 5-40 [facility] Comment on above: Order Comment: Order Date: 03/13/25 Order Info: 0786- - CMP Order Info: [id number] - LIPID Performed By: #### L 500.4100 #### [facility] [address] [place], [address] Triglyceride [Mass/Vol] 153 mg/dL Normal [facility] Comment on above: Order Comment: Order Date: 03/13/25 Order Info: 0786-1 - CMP Order Info: [id number] - LIPID Result Comment: The drugs N-Acetylcysteine and Metamizole may falsely depress this assay. Serum Triglycerides Reference Interval Normal <150 mg/dL Borderline high 150 - 199 mg/dL High 200 - 499 mg/dL Very High > or = 500 mg/dL Performed By: #### L 500.4100 #### [facility] [address] [place], [address] Low density lipoprotein (LDL ) cholesterol measurementOrdered By: Ron Cooley on 12-04-2024 Cholesterol in LDL [Mass/Vol] 116 mg/dL 0-130 [facility] Lymphocytes Auto (Unsp spec) [#/Vol]Ordered By: Ron Cooley on 12-04-2024 Lymphocytes (Bld) [#/Vol] 3.42 10*3/uL 0.83-4.5 1 [facility] Lymphocytes/100 WBC Auto (Un sp spec)Ordered By: Ron Cooley on 12-04-2024 Lymphocytes/100 WBC (Bld) 31.5 % 19-41 [facility] MCV (mean corpuscular volume ) determinationOrdered By: Ron Cooley on 12-04-2024 MCV (RBC) [Entitic vol] 92.9 fL 80-94 [facility] Magnesiumon 12-04-2024 Magnesium [Mass/Vol] 2.0 mg/dL Normal 1.6-2.6 [facility] Comment on above: Order Comment: Order Date: 03/13/25 Order Info: 0786-1 - CMP Order Info: [id number] - LIPID Performed By: #### L 500.4100 #### [facility] [address] [place] [address], [id number] Magnesium measurementOrdered By: Ron Cooley on 12-04-2024 Magnesium [Mass/Vol] 2.0 mg/dL 1.6-2.6 [facility] Mean corpuscular hemoglobin (MCH) determinationOrdered By: Ron Cooley on 12-04-2024 MCH (RBC) [Entitic mass] 30.4 pg 27.0-32.0 [facility] Mean corpuscular hemoglobin concentration (MCHC) determinationOrdered By: Ron Cooley on 12-04-2024 MCHC (RBC) [Mass/Vol] 32.7 g/dL 32-36 [facility] Mean platelet volume determi nationOrdered By: Ron Cooley on 12-04-2024 Platelet mean volume (Bld) [Entitic vol] 10.8 fL 6.2-12.0 [facility] Monocyte percentageOrdered B y: Ron Cooley on 12-04-2024 Monocytes/100 WBC (Bld) 10.8 % High 0-10 [facility] Neutrophil percentageOrdered By: Ron Cooley on 12-04-2024 Neutrophils/100 WBC (Bld) 54.1 % 47-70 [facility] Nucleated red blood cell per centageOrdered By: Ron Cooley on 12-04-2024 Nucleated RBC/100 WBC (Bld) [Ratio] 0 % 0-5 [facility] Platelet countOrdered By: Rimma Cooley on 12-04-2024 Platelets (Bld) [#/Vol] 281 10*3/uL 150-450 [facility] Potassium measurementOrdered By: Ron Cooley on 12-04-2024 Potassium [Moles/Vol] 3.9 mmol/L 3.5-5.1 [facility] RBC Auto (Bld) [#/Vol]Ordere d By: Ron Cooley on 12-04-2024 RBC (Bld) [#/Vol] 5.07 10*6/uL 4.6-6.2 [facility] Serum anion gap measurementO rdered By: Ron Cooley on 12-04-2024 Anion gap [Moles/Vol] 5 mmol/L 5-15 [facility] Serum globulin measurementOr dered By: Ron Cooley on 12-04-2024 Globulin (S) [Mass/Vol] 3.7 g/dL 2.2-4.2 [facility] Serum or plasma alanine max otransferase (ALT) measurementOrdered By: Ron Cooley on 12-04-2024 ALT [Catalytic activity/Vol] 11 U/L Low 16-61 [facility] Serum or plasma albumin walt urement (mass/volume)Ordered By: Ron Cooley on 12-04-2024 Albumin [Mass/Vol] 3.7 g/dL 3.2-5.0 [facility] Serum or plasma alkaline sarah sphatase measurementOrdered By: Ron Cooley on 12-04-2024 ALP [Catalytic activity/Vol] 91 U/L 45-117 [facility] Serum or plasma calcium walt urement (mass/volume)Ordered By: Ron Cooley on 12-04-2024 Calcium [Mass/Vol] 9.4 mg/dL 8.5-10.1 [facility] Serum or plasma cholesterol measurement (mass/volume)Ordered By: Ron Cooley on 12-04-2024 Cholesterol [Mass/Vol] 192 mg/dL <200 [facility] Comment on above: <200 mg/dL Desirable 200-240 mg/dL Borderline >240 mg/dL High Risk Serum or plasma creatinine m easurement (mass/volume)Ordered By: Ron Cooley on 12-04-2024 Creatinine [Mass/Vol] 0.96 mg/dL 0.70-1.30 [facility] Comment on above: The validity of the calculated GFR & GFRAA in patients over 70 years has not been determined. Clinical correlation is essential. Serum or plasma urea nitroge n measurement (mass/volume)Ordered By: Ron Cooley on 12-04-2024 Urea nitrogen [Mass/Vol] 19 mg/dL High 7-18 [facility] Sodium levelOrdered By: Ron Cooley on 12-04-2024 Sodium [Moles/Vol] 139 mmol/L 136-145 [facility] Total proteinOrdered By: Kwabena Cooley on 12-04-2024 Protein [Mass/Vol] 7.4 g/dL 6.4-8.2 [facility] Triglycerides measurementOrd ered By: Ron Cooley on 12-04-2024 Triglyceride [Mass/Vol] 153 mg/dL <199 [facility] Comment on above: The drugs N-Acetylcy steine and Metamizole may falsely depress this assay.Serum Triglycerides Reference Interval Normal <150 mg/dL Borderline high 150 - 199 mg/dL High 200 - 499 mg/dL Very High > or = 500 mg/dL Very low density lipoprotein (VLDL) cholesterol measurementOrdered By: Ron Cooley on 12-04-2024 Very low density lipoprotein (VLDL) cholesterol measurement 31 mg/dL 5-40 [facility] VLDL Cholesterol 31 mg/dL 5-40 [facility] Vitamin D,25 Hydroxyon 12-04 Vitamin D 25-OH 47.5 ng/mL Normal [facility] Comment on above: Order Comment: Order Date: 03/13/25 Order Info: [id number] - CMP Order Info: [id number] - LIPID Result Comment: Lisa min D 25(OH) Status Range Deficiency <20 ng/mL (50nmol/L) Insufficiency 20 - 30 ng/mL (50 - 75 nmol/L) Sufficiency 30 - 100 ng/mL (75 - 250 nmol/L) Toxicity >100 ng/mL (>250 nmol/L) Performed By: #### L 248.9026 #### [facility] [address] [place], [place] [address] [place], [address] White blood cell (WBC) count Ordered By: Ron Cooley on 12-04-2024 WBC (Bld) [#/Vol] 10.9 10*3/uL 4.4-11.0 [facility] Chest PA and Lateralon 12-02 Chest PA and Lateral [facility] [address] [place] [address] Chest PA and Lateral MR#: [id number] Acct: [id number] Name: KEVIN GRIFFITH Rep #: [id number] : 1945 M 79 From: José Luis Nicolas PCP: Dr. Ron Cooley MD Status: REG CLI Study: Chest PA and Lateral Date of Exam: 12/02/24 Exam# [id number] Ordering Dr: [place] [id number] INDICATION: HYPOXEMIA EXAMINATION/TECHNIQUE: X-RAY - XR Chest 2 Views COMPARISON: Prior study dated: 10/12/2024 FINDINGS: LINES/DEVICES: None. LUNGS: Mild atelectatic changes in the left lung base. No focal consolidation is seen. No evidence of pleural effusions. MEDIASTINUM AND CARDIOVASCULAR STRUCTURES: Cardiac silhouette not enlarged. Central airways and mediastinal contour are unremarkable. BONES AND SOFT TISSUES: Unremarkable. RAD/Chest PA and Lateral IMPRESSION: Mild atelectatic changes in the left lung base. Electronically Signed: José Luis Whalen MD at 10:04 [facility] , CC: Dr. Ron Cooley MD; Dr. Jose Perez MD [employer] Cook: Signed Normal [facility] AST(SGOT)on 10-28-2024 AST [Catalytic activity/Vol] 9 U/L Low 15-37 [facility] Comment on above: Performed By: #### L 501.4100, L501.4405, L500.2500, L501.9985 #### [facility] [address] [place], [address] Alanine Aminotransferas (SGP T)on 10-28-2024 ALT [Catalytic activity/Vol] 8 U/L Low 16-61 [facility] Comment on above: Performed By: #### L 501.4100, L501.4405, L500.2500, L501.9985 #### [facility] [address] [place], [address] Basic Metabolic Profile (BMP )on 10-28-2024 BUN/CRE 26.5 RATIO High 10-20 [facility] Comment on above: Performed By: #### L 501.4100, L501.4405, L500.2500, L501.9985 #### [facility] [address] [place], [address] CA,Total 9.3 mg/dL Normal 8.5-10.1 [facility] Comment on above: Performed By: #### L 501.4100, L501.4405, L500.2500, L501.9985 #### [facility] [address] [place], [address] Chloride [Moles/Vol] 105 mmol/L Normal 98-107 [facility] Comment on above: Performed By: #### L 501.4100, L501.4405, L500.2500, L501.9985 #### [facility] [address] [place], [address] CO2 [Moles/Vol] 31.0 mmol/L Normal 21.0-32.0 [facility] Comment on above: Performed By: #### L 501.4100, L501.4405, L500.2500, L501.9985 #### [facility] [address] [place], [address] Creatinine [Mass/Vol] 0.91 mg/dL Normal 0.70-1.30 [facility] Comment on above: Result Comment: The validity of the calculated GFR GFRAA in patients over 70 years has not been determined. Clinical correlation is essential. Performed By: #### L 501.4100, L501.4405, L500.2500, L501.9985 #### [facility] [address] [place], [address] EST GFR - AA 103 mL/min Normal >60 [facility] Comment on above: Result Comment: Afri can Bur[place]ian GFR Calc Performed By: #### L 501.4100, L501.4405, L500.2500, L501.9985 #### [facility] [address] [place], [address] GAP 5 Normal 5-15 [facility] Comment on above: Performed By: #### L 501.4100, L501.4405, L500.2500, L501.9985 #### [facility] [address] [place], [address] GFR/1.73 sq M.predicted among non-blacks MDRD (S/P/Bld) [Vol rate/Area] 86 mL/min/{1.73_m2} Normal >60 [facility] Comment on above: Result Comment: Non- GFR Calc Performed By: #### L 501.4100, L501.4405, L500.2500, L501.9985 #### [facility] [address] [place], [address] Glucose [Mass/Vol] 111 mg/dL High 74-106 [facility] Comment on above: Result Comment: Fast ing Glucose result from 100 to 125 mg/dL suggests IMPAIRED HOMEOSTASIS per A.D.A. criteria. Performed By: #### L 501.4100, L501.4405, L500.2500, L501.9985 #### [facility] [address] [place], [address] Potassium [Moles/Vol] 3.4 mmol/L Low 3.5-5.1 [facility] Comment on above: Performed By: #### L 501.4100, L501.4405, L500.2500, L501.9985 #### [facility] [address] [place], [address] Sodium [Moles/Vol] 142 mmol/L Normal 136-145 [facility] Comment on above: Performed By: #### L 501.4100, L501.4405, L500.2500, L501.9985 #### [facility] [address] [place], [address] Urea nitrogen [Mass/Vol] 24 mg/dL High 7-18 [facility] Comment on above: Performed By: #### L 501.4100, L501.4405, L500.2500, L501.9985 #### [facility] [address] [place], [address] Blood urea nitrogen (BUN)/cr eatinine ratioOrdered By: Natasha Gregory on 10-28-2024 Urea nitrogen/Creatinine [Mass ratio] 26.5 mg/mg High 10-20 [facility] Carbon dioxide measurementOr dered By: Natasha Greogry on 10-28-2024 CO2 [Moles/Vol] 31.0 mmol/L 21.0-32.0 [facility] Chloride measurementOrdered By: Natasha Gregory on 10-28-2024 Chloride [Moles/Vol] 105 mmol/L 98-107 [facility] Estimated glomerular filtrat ion rate (GFR) AmericanOrdered By: Natasha Gregory on 10-28-2024 Estimated GFR (MDRD) Amer 103 mL/min >60 [facility] Comment on above: GFR Calc Glomerular filtration rate ( GFR) estimationOrdered By: Natasha Gregory on 10-28-2024 Estimated GFR (MDRD) Non-Af Amer 86 mL/min >60 [facility] Comment on above: Non- GFR Calc Glucose measurementOrdered B y: Natasha Gregory on 10-28-2024 Glucose [Mass/Vol] 111 mg/dL High 74-106 [facility] Comment on above: Fasting Glucose resu lt from 100 to 125 mg/dL suggests IMPAIRED HOMEOSTASIS per A.D.A. criteria. Hemoglobin A1con 10-28-2024 HbA1c (Bld) [Mass fraction] 6.4 % High 3.8-5.6 [facility] Comment on above: Result Comment: Norm al < 5.7 % Prediabetic 5.7 - 6.4 % Diabetic >or= 6.5 % Please note range changes. Performed By: #### L 501.4100, L501.4405, L500.2500, L501.9985 #### [facility] [address] [place], [address] Hemoglobin A1c percentageOrd ered By: Natasha Gregory on 10-28-2024 HbA1c (Bld) [Mass fraction] 6.4 % High 3.8-5.6 [facility] Comment on above: Normal < 5.7 % Predi abetic 5.7 - 6.4 % Diabetic >or= 6.5 % Please note range changes. Laboratory - Chemistry and C hemistry - challengeOrdered By: Natasha Gregory on 10-28-2024 AST [Catalytic activity/Vol] 9 U/L Low 15-37 [facility] Potassium measurementOrdered By: Natasha Gregory on 10-28-2024 Potassium [Moles/Vol] 3.4 mmol/L Low 3.5-5.1 [facility] Serum anion gap measurementO rdered By: Natasha Gregory on 10-28-2024 Anion gap [Moles/Vol] 5 mmol/L 5-15 [facility] Serum or plasma alanine max otransferase (ALT) measurementOrdered By: Natasha Gregory on 10-28-2024 ALT [Catalytic activity/Vol] 8 U/L Low 16-61 [facility] Serum or plasma calcium walt urement (mass/volume)Ordered By: Natasha Gregory on 10-28-2024 Calcium [Mass/Vol] 9.3 mg/dL 8.5-10.1 [facility] Serum or plasma creatinine m easurement (mass/volume)Ordered By: Natasha Gregory on 10-28-2024 Creatinine [Mass/Vol] 0.91 mg/dL 0.70-1.30 [facility] Comment on above: The validity of the calculated GFR & GFRAA in patients over 70 years has not been determined. Clinical correlation is essential. Serum or plasma urea nitroge n measurement (mass/volume)Ordered By: Natasha Gregory on 10-28-2024 Urea nitrogen [Mass/Vol] 24 mg/dL High 7-18 [facility] Sodium levelOrdered By: Josefina Gregory on 10-28-2024 Sodium [Moles/Vol] 142 mmol/L 136-145 [facility] Emergency Department Summary on 10-12-2024 Emergency Department Summary [facility] Medical Records Department [address] [place] [address] Emergency Department Summary 10/12/24 MR#: [id number] Acct: [id number] Name: KEVIN GRIFFITH Rep #: [id number] : 1945 79 From: Osman Farooq MD PCP: Dr. Ron Cooley MD Status:REG ER Location: ED HPI History of Present Illness Chief Complaint: Chest Other Informant: patient and spouse/S.O. Narrative Narrative: 79-year-old male lives with his has Parkinson's and has frequent falls as a result, about 6 days ago he was pulling a trash bag out of a trash can, lost his balance and fell hitting his left anterior chest wall on a nearby concrete step. Has been having pain ever since and the pain seems to be getting worse not better, hence they are concerned. He denies any other pain or injury. It hurts to move and worse to take a deep breath but he has not been dyspneic. He has not been coughing up any blood. [facility] Medical History Parkinson's disease Right bundle branch block (RBBB) Obesity Type 2 diabetes mellitus Essential (primary) hypertension Cataract Back problem Arthritis HLD (hyperlipidemia) Paroxysmal atrial fibrillation Home Medications ???Medication ???Instructions ???Recorded ???Last Taken ???Type pravastatin 80 mg tablet 80 mg PO QDAY 04/06/18 Unknown History hydrochlorothiazide 12.5 mg tablet 12.5 mg PO DAILY 04/12/21 Unknown History fluticasone fur. 200 mcg-umeclid 1 inh inhalation DAILY 04/12/22 Unknown History 62.5 mcg-vilant 25 mcg inhalat.powder (Trelegy Ellipta) pantoprazole 40 mg tablet,delayed 40 mg PO DAILY 04/12/22 Unknown History release potassium chloride 10 mEq 20 meq PO DAILY 04/12/22 Unknown History tablet,extended release finasteride 5 mg tablet 5 mg PO DAILY 04/11/23 Unknown History alfuzosin 10 mg tablet,extended 10 mg PO DAILY 04/12/23 Unknown History release 24 hr cholecalciferol (vitamin D3) 25 50 mcg PO DAILY 04/12/23 Unknown History mcg (1,000 unit) capsule insulin aspart U-100 100 unit/mL See Rx Instructions .Route .COMPLEX 04/12/23 Unknown History subcutaneous solution (Novolog U-100 Insulin aspart) metformin 750 mg tablet,extended 750 mg PO QHS 04/12/23 Unknown History release 24 hr ascorbic acid (vitamin C) 1,000 mg 1 g PO DAILY 06/27/24 Unknown History capsule insulin glargine U-300 conc 300 60 unit subcut DAILY 06/27/24 Unknown History unit/mL (3 mL) subcutaneous pen (Toujeo Max U-300 SoloStar) zinc gluconate 30 mg tablet 30 mg PO DAILY 06/27/24 Unknown History doxepin 25 mg capsule 25 mg PO QHS #90 caps 07/01/24 Unknown Rx buspirone 5 mg tablet 5 mg PO TID #270 tabs 09/02/24 Unknown Rx carbidopa 25 mg-levodopa 100 mg 2 tab PO .QID #720 tabs 09/02/24 Unknown Rx tablet propranolol 60 mg capsule,24 60 mg PO DAILY #90 caps 09/02/24 Unknown Rx hr,extended release hydrocodone-acetaminoph en 5-325mg 1 tab PO Q6H PRN PRN Pain 4 days 10/12/24 Unknown Rx 5mg-325mg #15 TABLETS Allergy/AdvReac Type Severity Reaction Status Date / Time metoclopramide (From Reglan) Allergy Severe HYPER Verified 10/12/24 11:15 Family History Father Leukemia Surgical History History of total left knee replacement (TKR) History of left tennis elbow Hx of spinal fusion History of skin cancer Social History (Updated 10/12/24 @ 11:[address] Osman Farooq MD) household members: spouse Smoking Status: Former smoker alcohol intake: never substance use type: does not use ROS ROS ED Constitutional Constitutional ED: Denies chills or fever(s) Eyes Eyes: Denies change in vision or diplopia ENT ENT ED: Denies rhinorrhea or sore throat Cardiovascular Cardiovascular: Reports chest pain; Denies palpitations Respiratory/Chest Respiratory/Chest: Denies cough, dyspnea or hemoptysis Gastrointestinal Gastrointestinal: Denies abdominal pain, diarrhea, nausea or vomiting Genitourinary Genitourinary ED: Denies dysuria or hematuria Musculoskeletal Musculoskeletal: Denies back pain or neck pain Integumentary Denies abscess or rash Neurologic Neurologic: Denies headache(s), paresthesias or weakness Psychiatric Psychiatric: Denies anxiety or suicidal thoughts EXAM Physical Exam Const Vital Signs: 10/12/24 11:16 10/12/24 11:40 Temperature 98 F Temperature Source Temporal Pulse Rate 70 Respiratory Rate 16 Respiratory Effort Normal Non-Labored Blood Pressure 121/61 H Blood Pressure Mean 81 Pulse Ox 96 Oxygen Delivery Method Room Air Positive well nourished and well developed General Appearance ED: well developed and NAD HEENT Reports m (more content not included)... Normal [facility] Ribs Uni Min 3V w/PA Cheston 10-12-2024 Ribs Uni Min 3V w/PA Chest [facility] Imaging Services [address] [place] [address] Ribs Uni Min 3V w/PA Chest MR#: [id number] Acct: [id number] Name: KEVIN GRIFFITH Rep #: [id number] : 1945 M 79 From: Osman Ramos MD PCP: Dr. Ron Cooley MD Status: REG ER Study: Ribs Uni Min 3V w/PA Chest Date of Exam: 10/12 Exam# [id number] Ordering [place]: [place] [id number] STUDY: X-RAY - UNILATERAL RIBS ( LEFT ) WITH CHEST REASON FOR EXAM: Male, 79 years old. Injury - anterior TECHNIQUE - RIBS: 4 view(s) of the ribs. TECHNIQUE - CHEST: Single frontal view of the chest. COMPARISON: September 27, 2024 chest x-ray FINDINGS - RIBS: There are nondisplaced left anterior sixth and seventh rib fractures of uncertain age. FINDINGS - CHEST: There is left lower lung atelectasis or infiltrate. There is no demonstrated pleural abnormality. Normal size heart. Normal mediastinum and javier. Normal visualized pulmonary arteries. Normal visualized aortic arch and descending thoracic aorta. There is degenerative change of the spine. There is left anterior sixth and seventh rib fractures of uncertain age. There is no demonstrated abnormality of the visualized soft tissue structures of the upper abdomen. RAD/Ribs Uni Min 3V w/PA Chest IMPRESSION: RIBS: Left sixth and seventh rib fractures. CHEST: Left sixth and seventh rib fractures. Left lower lung atelectasis or infiltrate. No pneumothorax. Electronically Signed: Osman Ramos MD at 12:36 EST , CC: Dr. Osman Farooq MD; Dr. Ron Cooley MD [employer] Cook: Signed Normal [facility] Chest PA and Lateralon 09-27 Chest PA and Lateral [facility] Imaging Services [address] [place] [id number] Chest PA and Lateral MR#: [id number] Acct: [id number] Name: KEVIN GRIFFITH Rep #: [id number] : 1945 M 79 From: Humberto Perez MD PCP: Dr. Ron Cooley MD Status: REG CLI Study: Chest PA and Lateral Date of Exam: 09/27/24 Exam# [id number] Ordering Dr: [place] [id number] STUDY: X-RAY CHEST REASON FOR EXAM: Male, 79 years old. Cough. TECHNIQUE: Frontal and lateral views of the chest. COMPARISON: January 30, 2024 FINDINGS: Stable hyperinflation. There is no demonstrated pleural abnormality. Mild cardiomegaly unchanged. Normal mediastinum and javier. Normal visualized pulmonary arteries. Normal visualized aortic arch and descending thoracic aorta. Diffuse mild thoracic spondylosis unchanged. Normal visualized ribs, clavicles, and shoulders. No abnormality of the visualized soft tissue structures of the upper abdomen. RAD/Chest PA and Lateral IMPRESSION: Stable chest with no acute or active cardiopulmonary disease. Electronically Signed: Humberto Perez MD at 15:52 EST Reading Location ID and State: [address] [place] [address] , Service support , CC: Dr. Ron Cooley MD; Dr. Imer Gee MD [employer] Cook: Signed Normal [facility] Modified Barium Swallow Stud n 09-20-2024 Modified Barium Swallow Study [facility] Speech Pathology [address] [place] [address] Modified Barium Swallow Study MR#: [id number] Acct: [id number] Name: KEVIN GRIFFITH BRYAN Rep #: [id number] : 1945 79 From: Chayito Barber Modified Barium Swallow Patient Information Study Date: 09/20/24 Study Time: 13:00 Direct Billable Minutes: 120 Total Minutes procedure reportin Diagnosis: G20 - Parkinson's disease Referring Physician: Vick Santo Reason for Referral: Objectively assess swallow function, assess risk for aspiration, and determine recommendations for least restrictive diet textures and compensatory strategies to improve safety of swallow.??? Medical History: Pt. is here for MBSS as referred by neurologist Dr. Santo to evaluate dysphagia. He is diagnosed with moderate Parkinson's disease. According to pt., he has been experiencing frequent episodes of coughing and choking with solids and liquids. He is unable to provide specifics regarding whether certain foods or drinks, or using a cup or straw, contribute to his difficulties. Pt. denies any history of pneumonia. Dentition: WNL Mental Status: Impaired (Parkinson's disease dementia) Respiratory Status: Oxygenating on Room Air Penetration-Aspiration Scale Penetration-Aspiration Scale: OBJECTIVE ASSESSMENT OF SWALLOW FUNCTION (QUANTITATIVE ??? PER TRIAL): PENETRATION / ASPIRATION SCALE (OBANDO): 1 = does not enter airway 2 = enters airway/above vocal folds/ejected 3 = enters airway/above vocal folds/not ejected 4 = enters airway/contacts vocal folds/ejected 5 = enters airway/contacts vocal folds/not ejected 6 = enters airway/below vocal folds/ejected 7 = enters airway/below vocal folds/not ejected despite effort 8 = enters airway/below vocal folds/no effort VIDEOFLOROSCOPIC SCALE SCORE (OBANDO): Grade I = aspiration of material that has penetrated into the laryngeal vestibule, intact cough reflex Grade II = aspiration < 10 % of the bolus, intact cough reflex Grade III = aspiration of < 10 % of the bolus, reduced cough reflex or aspiration of > 10 % of the bolus, intact cough reflex Grade IV = aspiration of > 10 % of the bolus, reduced cough reflex Penetration-Aspiration Scale Score Thin Liquid via teaspoon: Result: 1= does not enter airway Thin Liquid via small single sip: cup: Result: 1= does not enter airway Thin Liquid via large single sip: cup: Result: 2= enter airway/above vocal folds/ejected Thin Liquid via small single sip: cup Effortful swallow: Result: 1= does not enter airway [place] Thick Liquid via small single sip: cup: Result: 1= does not enter airway Honey Thick Liquid via small single sip: cup: Result: 1= does not enter airway Pudding via teaspoon: Result: 1= does not enter airway Cookie: Result: 1= does not enter airway Thin Liquid via single sip: straw: Result: 2= enter airway/above vocal folds/ejected Thin Liquid via sequential sips:straw: Result: 5= enters airways/contacts vocal folds/not ejected Thin Liquid via small single sip: cup Effortful swallow Trial 2: Result: 1= does not enter airway Oral Phase Labial Seal: No Labial Escape Tongue Control During Bolus Hold: Posterior escape of greater than half of bolus Bolus Preparation/Mastication : Slow prolonged chewing/mashing with complete recollection Bolus Transport/Lingual Motion: Delayed initiation of tongue motion Oral Residue: Residue collection on oral structures Pharyngeal Phase Initiation of Pharyngeal Swallow: Bolus head in pyriforms Soft Palate Elevation: No bolus between soft palate and pharyngeal wall Laryngeal Elevation: Partial superior movement thyroid cart/partial apprx aryt-epig petiole Anterior Hyoid Excursion: Complete anterior movement Epiglottic Movement: Complete inversion Laryngeal Vestibule Closure at Height of Swallow: Incomplete; narrow column of air/contrast in laryngeal vestibule Pharyngeal Stripping Wave: Present - diminished Pharyngoesophageal Segment Opening: Parital distension and partial duration; parital obstruction of flow Tongue Base Retraction: Narrow column of contrast between tongue base post. pharyngeal wall Pharyngeal Residue: Collection of residue within or on pharyngeal structures Esophageal Phase Esophageal Clearance: Esophageal retention Treatment Strategies Effects of treatment strategies attemped:: small sips = effective effortful swallow = effective Diagnosis/Impression Diagnosis: mild oropharyngeal dysphagia R13.12 Impression: The pt. presents with mild oropharyngeal dysphagia likely secondary to Parkinson's disease. Pt. demonstrated poor bolus control, with over half of the bolus in the vallecula and pyriform sinuses prior to swallow onset. Improvement in bolus control was noted with smaller sips, especially when taken with a teaspoon or when prompted by the LINE MAINTENANCE SUPERVISOR to take smaller sips. Poor bolus control and delayed pharyn (more content not included)... Normal [facility] MARIAH + Protein Elect, Serumon 09-05-2024 Albumin [Mass/Vol] 3.9 g/dL Normal 2.9-4.4 [facility] Comment on above: Order Comment: N Performed By: #### L 501.3980, L501.2945, L500.2500, L501.9939 #### [facility] [address] [place], [address] Albumin/Globulin [Mass ratio] 1.4 {ratio} Normal 0.7-1.7 [facility] Comment on above: Order Comment: N Performed By: #### L 501.4100, L501.4405, L500.2500, L501.9985 #### [facility] [address] [place], [address] QYNZO-3-DEPV 0.2 g/dL Normal 0.0-0.4 [facility] Comment on above: Order Comment: N Performed By: #### L 501.4100, L501.4405, L500.2500, L501.9985 #### [facility] [address] [place], [address] OPAMY-9-NNIP 0.8 g/dL Normal 0.4-1.0 [facility] Comment on above: Order Comment: N Performed By: #### L 501.4100, L501.4405, L500.2500, L501.9985 #### [facility] [address] [place], [address] BETA GLOBULIN 0.9 g/dL Normal 0.7-1.3 [facility] Comment on above: Order Comment: N Performed By: #### L 501.4100, L501.4405, L500.2500, L501.9985 #### [facility] [address] [place], [address] GAMMA GLOBULIN 0.9 g/dL Normal 0.4-1.8 [facility] Comment on above: Order Comment: N Performed By: #### L 501.4100, L501.4405, L500.2500, L501.9985 #### [facility] [address] [place], [address] Globulin (S) [Mass/Vol] 2.8 g/dL Normal 2.2-3.9 [facility] Comment on above: Order Comment: N Performed By: #### L 501.4100, L501.4405, L500.2500, L501.9985 #### [facility] [address] [place], [address] MARIAH RESULT,S Comment Normal . [facility] Comment on above: Order Comment: N Result Comment: No m onoclonality detected. Performed By: #### L 501.4100, L501.4405, L500.2500, L501.9985 #### [facility] [address] [place], [address] IMMUNOGLOB A QN 171 mg/dL Normal 61-437 [facility] Comment on above: Order Comment: N Performed By: #### L 501.4100, L501.4405, L500.2500, L501.9985 #### [facility] [address] [place], [address] IMMUNOGLOB G QN 946 mg/dL Normal 603-1613 [facility] Comment on above: Order Comment: N Performed By: #### L 501.4100, L501.4405, L500.2500, L501.9985 #### [facility] [address] [place], [address] IMMUNOGLOB M QN 100 mg/dL Normal 15-143 [facility] Comment on above: Order Comment: N Performed By: #### L 501.4100, L501.4405, L500.2500, L501.9985 #### [facility] [address] [place], [address] M-Jose Antonio Not Observed Normal Not Observed [facility] Comment on above: Order Comment: N Performed By: #### L 501.4100, L501.4405, L500.2500, L501.9985 #### [facility] [address] [place], [address] NOTE: Comment Normal . [facility] Comment on above: Order Comment: N Result Comment: Prot ein electrophoresis scan will follow via computer, mail, or vp hr diversity delivery. Performed By: #### L 501.4100, L501.4405, L500.2500, L501.9985 #### [facility] [address] [place], [place], [id number] Protein [Mass/Vol] 6.7 g/dL Normal 6.0-8.5 [facility] Comment on above: Order Comment: N Performed By: #### L 501.4100, L501.4405, L500.2500, L501.9985 #### [facility] [address] [place], [place], [address] Immunofixation Urineon 09-05 MARIAH Urine Comment Normal . [facility] Comment on above: Order Comment: N Result Comment: No m onoclonality detected. Performed at: - [facility] [id number] Rail Technician: Vj Garcia PhD, Phone: [phone] Performed By: #### L 501.4100, L501.4405, L500.2500, L501.9985 #### [facility] [address] [place], [place], [id number] Neurology Visit Reporton Neurology Visit Report [facility] [address], [address] [place], [place] [address] OFFICE VISIT Date of Service: 09/02/24 MR#: [id number] Acct: [id number] Name: KEVIN GRIFFITH Rep #: [id number] : 1945 Provider: Dr. Vick beltran MD Age/Sex: 79/M Location: [facility] Status: Signed HPI [facility] Chief Complaint: Details: Interim History: Kevin returns for follow-up visit. 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 He is accompanied by his . In 2020, he began to exhibit a tremor in both hands that was most prominent at rest. The tremor worsened over time. He also began to exhibit some forgetfulness. On evaluation by neurologist in November 2021, he was diagnosed with Parkinson's disease. Carbidopa/levodopa 25/100 was initiated and he currently takes 2 tablets 4 times daily and this is of slight benefit. In 2021, he began to exhibit gait imbalance and this worsened over time. He has had multiple falls and with one of his falls in 2021, he sustained a concussion. His falls are often preceded by feeling of lightheadedness. He does not have vertigo. He has a tendency to fall backwards. He has neck pain. He has had bilateral total knee joint replacements. He ambulates with a rollator or a 4- prong cane. He denied having headaches, numbness or weakness. He has chronic hearing loss and has hearing aids. He has had some hypophonia. His handwriting has become smaller and coarser. He occasionally has dysphagia that produces coughing when he eats. His memory difficulty has manifested with forgetting and repeating conversations. He had become lost in familiar surroundings when driving and no longer drives. He has a tendency to lose his train of thought. He has word finding difficulty. He has some disorganization in his mentation when he speaks. He has exhibited impulsive speech and has, at times, made inappropriate comments for the social situation he is engaged in; this pattern is atypical for him. No recent change in his memory is reported. He has anxiety. Doxepin is of benefit for his insomnia. Mirtazapine has not been of benefit for his insomnia. He has chronic low back pain and has had lumbar surgeries in 2000 and 2018. 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 He has also had a lumbar radiofrequency ablation. His tremor is more prominent at rest. When his tremor is pronounced he has difficulty with activities such as using a computer mouse. Propranolol ER is of benefit for his tremor. Physical therapy was not of benefit for his gait imbalance. He has been experiencing diplopia since 2020. Use of prism glasses or eye patches are of benefit. He previously had occasional freezing episodes. He sustained a right fibular fracture in 2022 with one of his falls; this was treated nonsurgically Mini-Mental status exam score was 25/30 in March 2023. Bilateral lower extremity EMG/nerve conduction studies reveal a sensorimotor polyneuropathy. No lumbar radiculopathy was noted. B12 1500 mcg IM was not of benefit for his fatigue. Trazodone was not of benefit for his insomnia. Nourianz was not covered on his insurance plan without a trial of at least 2 of the following in any of the 3 classes: Dopamine agonists, monoamine oxidase inhibitors (selegiline, rasagiline), COMT inhibitor (tolcapone, entacapone). His serum free light chains was abnormal. The patient's head MRI with attention to the orbits in March 2024 did not reveal pathology that would account for his chronic diplopia; moderate diffuse age-related cerebral atrophy is noted; minimal subcortical white matter chronic small vessel ischemic disease is noted Physical Exam: Neuro: The patient is awake; he is slightly bradyphrenic; no rigidity is noted in the wrists; no tremor is noted; decreased right arm swing is noted when the patient ambulates; gag reflex is absent; palate elevation is normal; gait is slightly slow Heart: Regular rate and rhythm Neck: no bruits Supplemental Info Pelvic and left hip x-rays (09/04/2020): FINDINGS: There is a non-specific bowel gas pattern. Normal visualized soft tissue structures. Normal bilateral iliac wings, sacroiliac joints and visualized sacrum. Normal bilateral superior and inferior pubic rami. Normal pubic symphysis. Normal bilateral ischial tuberosities. Normal visualized femoral head. Normal acetabulum. Normal hip joint. IMPRESSION: Normal x-ray examination of the pelvis and hip. Lumbar x-rays (03/18/2021): FINDINGS: Normal lumbar lordosis. Mild levoscoliosis centered at L2/L3. Disc space prosthesis at L3/L4 with anatomic alignment. 5 mm of anterolisthesis of L5 on S1. This is unchanged on the flexion and extension views. There is multi (more content not included)... Normal [facility] Ankle min 3 Viewson 08-07-20 24 Ankle min 3 Views [facility] Imaging Services [address] [place], [place] [address] Ankle min 3 Views MR#: [id number] Acct: [id number] Name: KEVIN GRIFFITH Rep #: [id number] : 1945 M 79 From: Humberto Perez MD PCP: Dr. Ron Cooley MD Status: REG CLI Study: Ankle min 3 Views Date of Exam: 08/07/24 Exam# [id number] Ordering [place]: [place] [id number] STUDY: X-RAY - LEFT ANKLE REASON FOR EXAM: Male, 79 years old. Fall. Pain. TECHNIQUE: 3 view(s) of the ankle. COMPARISON: None. FINDINGS: Osteopenia. Normal visualized distal tibia and fibula. Normal medial and lateral malleoli. Normal tibiotalar articulation and ankle mortise. Small inferior calcaneal spur. Mild arthrosis. Diffuse soft tissue swelling. RAD/Ankle min 3 Views IMPRESSION: Osteopenia, calcaneal spur, midfoot arthrosis and diffuse soft tissue swelling. No acute finding. Electronically Signed: Humberto Perez MD at 15:36 EDT Reading Location ID and State: [address] [place] [address] , Service support , CC: Dr. Ron Cooley MD [employer] Cook: Signed Normal [facility] Forearm 2 Viewson 08-07-2024 Forearm 2 Views [facility] Imaging Services [address] [place] [id number] Forearm 2 Views MR#: [id number] Acct: [id number] Name: KEVIN GRIFFITH Rep #: [id number] : 1945 M 79 From: Humberto Perez MD PCP: Dr. Ron Cooley MD Status: REG CLI Study: Forearm 2 Views Date of Exam: 08/07/24 Exam# [id number] Ordering [place]: [place] [id number] STUDY: X-RAY - LEFT RADIUS AND ULNA REASON FOR EXAM: Male, 79 years old. Fall. Pain. TECHNIQUE: 2 view(s) of the forearm. COMPARISON: None. FINDINGS: There is no demonstrated soft tissue swelling. Osteopenia. Normal visualized radius. Plate-screw fixation of the distal fibula in anatomic alignment. RAD/Forearm 2 Views IMPRESSION: No acute abnormality. Electronically Signed: Humberto Perez MD at 15:33 EDT Reading Location ID and State: [facility] / [place] , Service support , CC: Dr. Ron Cooley MD [employer] Cook: Signed Normal [facility] Wrist min 3 Viewson 08-07-20 Wrist min 3 Views [facility] Imaging Services [address] [place] [address] Wrist min 3 Views MR#: [id number] Acct: [id number] Name: KEVIN GRIFFITH Rep #: [id number] : 1945 79 From: Humberto Perez MD PCP: Dr. Ron Cooley MD Status: REG CLI Study: Wrist min 3 Views Date of Exam: 08/07/24 Exam# [id number] Ordering Dr: [place] [id number] STUDY: X-RAY - LEFT WRIST REASON FOR EXAM: Male, 79 years old. Fall. Pain. TECHNIQUE: 3 view(s) of the wrist were obtained. COMPARISON: January 08, 2018 FINDINGS: Deformity of the distal radius from prior fracture. Mild arthrosis of the radiocarpal articulation. Mild arthrosis of the distal radioulnar articulation. Moderate arthrosis of the radial carpal row of the wrist. Moderate arthrosis of the first carpometacarpal joint. Plate and screw fixation of the distal ulna.. Normal soft tissues. RAD/Wrist min 3 Views IMPRESSION: Osteopenia with osteoarthritic changes. No acute finding. Electronically Signed: Humberto Perez MD at 15:38 EDT , CC: Dr. Ron Cooley MD [employer] Cook: Signed Normal [facility] AST(SGOT)on 06-27-2024 AST [Catalytic activity/Vol] 10 U/L Low 15-37 [facility] Comment on above: Performed By: #### L 501.4100, L501.4405, L500.2500, L501.9985 #### [facility] [address] [place], [address] Alanine Aminotransferas (SGP T)on 06-27-2024 ALT [Catalytic activity/Vol] 8 U/L Low 16-61 [facility] Comment on above: Performed By: #### L 501.4100, L501.4405, L500.2500, L501.9985 #### [facility] [address] [place], [address] Basic Metabolic Profile (BMP )on 06-27-2024 BUN/CRE 17.4 RATIO Normal 10-20 [facility] Comment on above: Performed By: #### L 501.4100, L501.4405, L500.2500, L501.9985 #### [facility] [address] [place], [address] CA,Total 8.8 mg/dL Normal 8.5-10.1 [facility] Comment on above: Performed By: #### L 501.4100, L501.4405, L500.2500, L501.9985 #### [facility] [address] [place], [address] Chloride [Moles/Vol] 109 mmol/L High 98-107 [facility] Comment on above: Performed By: #### L 501.4100, L501.4405, L500.2500, L501.9985 #### [facility] [address] [place], [address] CO2 [Moles/Vol] 28.0 mmol/L Normal 21.0-32.0 [facility] Comment on above: Performed By: #### L 501.4100, L501.4405, L500.2500, L501.9985 #### [facility] [address] [place], [address] Creatinine [Mass/Vol] 0.92 mg/dL Normal 0.70-1.30 [facility] Comment on above: Result Comment: The validity of the calculated GFR GFRAA in patients over 70 years has not been determined. Clinical correlation is essential. Performed By: #### L 501.4100, L501.4405, L500.2500, L501.9985 #### [facility] [address] [place], [address] EST GFR - AA 102 mL/min Normal >60 [facility] Comment on above: Result Comment: Afri can [place] GFR Calc Performed By: #### L 501.4100, L501.4405, L500.2500, L501.9985 #### [facility] [address] [place], [address] GAP 6 Normal 5-15 [facility] Comment on above: Performed By: #### L 501.4100, L501.4405, L500.2500, L501.9985 #### [facility] [address] [place], [address] GFR/1.73 sq M.predicted among non-blacks MDRD (S/P/Bld) [Vol rate/Area] 84 mL/min/{1.73_m2} Normal >60 [facility] Comment on above: Result Comment: Non- GFR Calc Performed By: #### L 501.4100, L501.4405, L500.2500, L501.9985 #### [facility] [address] [place], [address] Glucose [Mass/Vol] 47 mg/dL Low 74-106 [facility] Comment on above: Result Comment: Gluc ose result less than 50 mg/dL suggests HYPOGLYCEMIA. Performed By: #### L 501.4100, L501.4405, L500.2500, L501.9985 #### [facility] [address] [place], [address] Potassium [Moles/Vol] 3.5 mmol/L Normal 3.5-5.1 [facility] Comment on above: Performed By: #### L 501.4100, L501.4405, L500.2500, L501.9985 #### [facility] [address] [place], [address] Sodium [Moles/Vol] 143 mmol/L Normal 136-145 [facility] Comment on above: Performed By: #### L 501.4100, L501.4405, L500.2500, L501.9985 #### [facility] [address] [place], [address] Urea nitrogen [Mass/Vol] 16 mg/dL Normal 7-18 [facility] Comment on above: Performed By: #### L 501.4100, L501.4405, L500.2500, L501.9985 #### [facility] [address] [place], [address] Cardiology Visit Reporton Cardiology Visit Report [facility] [address] [place], [place] [address] OFFICE VISIT Date of Service: 06/27/24 MR#: [id number] Acct: [id number] Name: KEVIN GRIFFITH Rep #: [id number] : 1945 Provider: Dr. Vladimir Sears MD Age/Sex: 78/M Location: [facility] Status: Signed HPI [facility] History of Present Illness Details: KEVIN GRIFFITH, is a 78 M who presents to the office today for a follow-up visit. He is a gentleman with a history of paroxysmal atrial fibrillation, hypertension, hyperlipidemia, diabetes, and Parkinson's. From a cardiac standpoint, the patient is doing well. He denies any palpitations, chest pain, pressure or heaviness. He denies SOB, Orthopnea, and PND. He does not have bleeding issues; no blood in urine, stool or nosebleeds. He does acknowledge intermittent fatigue. He denies myalgias, or claudication. He does not have edema, or sudden weight gain. He does have an occasional lightheadedness. He attributes this to his Parkinson's. He denies dizziness, syncopal or near syncopal episodes, and headaches. Intake Vital Signs 04/12/23 10:15 04/09/24 14:22 06/27/24 15:14 Height 5 ft 10 in 5 ft 10 in 5 ft 10 in Weight: 245 lb 8 oz BMI 35.2 BP 121/72 H Blood Pressure Location Lt brachial Position Sitting Respiration 16 Pulse 86 Pulse Source Monitor Intake Visit Reasons: 1 Y FU [employer] Pellet Tester Required: No Accompanied by: Self Is patient in pain?: No Allergies metoclopramide (From Reglan) Allergy (Severe, Verified 06/27/24 15:15) HYPER Medications ???Medication ???Instructions ???Recorded ???Confirmed ???Type pravastatin 80 mg tablet 80 mg PO QDAY 04/06/18 06/27/24 History hydrochlorothiazide 12.5 mg tablet 12.5 mg PO DAILY 04/12/21 06/27/24 History fluticasone fur. 200 mcg-umeclid 1 inh inhalation DAILY 04/12/22 06/27/24 History 62.5 mcg-vilant 25 mcg inhalat.powder (Trelegy Ellipta) pantoprazole 40 mg tablet,delayed 40 mg PO DAILY 04/12/22 06/27/24 History release potassium chloride 10 mEq 20 meq PO DAILY 04/12/22 06/27/24 History tablet,extended release finasteride 5 mg tablet 5 mg PO DAILY 04/11/23 06/27/24 History alfuzosin 10 mg tablet,extended 10 mg PO DAILY 04/12/23 06/27/24 History release 24 hr cholecalciferol (vitamin D3) 25 50 mcg PO DAILY 04/12/23 06/27/24 History mcg (1,000 unit) capsule insulin aspart U-100 100 unit/mL See Rx Instructions .Route .COMPLEX 04/12/23 06/27/24 History subcutaneous solution (Novolog U-100 Insulin aspart) metformin 750 mg tablet,extended 750 mg PO QHS 04/12/23 06/27/24 History release 24 hr carbidopa 25 mg-levodopa 100 mg 2 tab PO .QID #720 tabs 03/27/24 06/27/24 Rx tablet mirtazapine 45 mg tablet 45 mg PO QHS #90 tabs 03/27/24 06/27/24 Rx propranolol 60 mg capsule,24 60 mg PO DAILY #90 caps 03/27/24 06/27/24 Rx hr,extended release doxepin 25 mg capsule 25 mg PO QHS #30 caps 06/17/24 06/27/24 Rx ascorbic acid (vitamin C) 1,000 mg 1 g PO DAILY 06/27/24 06/27/24 History capsule insulin glargine U-300 conc 300 60 unit subcut DAILY 06/27/24 06/27/24 History unit/mL (3 mL) subcutaneous pen (Toujeo Max U-300 SoloStar) zinc gluconate 30 mg tablet 30 mg PO DAILY 06/27/24 06/27/24 History Have you fallen in the past year?: Yes [facility] Medical History Parkinson's disease Right bundle branch block (RBBB) Obesity Type 2 diabetes mellitus Essential (primary) hypertension Cataract Back problem Arthritis HLD (hyperlipidemia) Paroxysmal atrial fibrillation Surgical History History of total left knee replacement (TKR) History of left tennis elbow Hx of spinal fusion History of skin cancer Family History Father Leukemia Social History Smoking Status: Former smoker alcohol intake: never substance use type: does not use ROS Const Const: Positive for difficulty sleeping (issues falling asleep and staying asleep); Negative for fatigue, weakness, headache(s) or daytime sleepiness ENT ENT: Negative for headache(s), dizziness or Nosebleed/epistaxis Cardio Chest Pain: No Palpitations: No Edema: None Resp Respiratory: Positive for SOB with activity; Negative for SOB at rest, SOB orthopnea SOB lying down or Cough GI GI: Negative nausea, vomiting or heartburn Neuro Neuro: Negative for dizziness, lightheadedness, near syncope, headache(s) or weakness Endo Endo: Negative for fatigue Cardiology Exam Const Appearance: cooperative, healthy appearing, no acute distress, well developed and well groomed Nutritional Appearance: average body habitus, well nou (more content not included)... Normal [facility] Hemoglobin A1con 06-27-2024 HbA1c (Bld) [Mass fraction] 6.4 % High 3.8-5.6 [facility] Comment on above: Result Comment: Norm al < 5.7 % Prediabetic 5.7 - 6.4 % Diabetic >or= 6.5 % Please note range changes. Performed By: #### L 501.4100, L501.4405, L500.2500, L501.9985 #### [facility] [address] [address], [address] Lipid Profileon 06-27-2024 Cholesterol [Mass/Vol] 105 mg/dL Normal 200 [facility] Comment on above: Result Comment: <200 mg/dL Desirable 200-240 mg/dL Borderline >240 mg/dL High Risk Performed By: #### L 501.4100, L501.4405, L500.2500, L501.9985 #### [facility] [address] [place], [address] Cholesterol in HDL [Mass/Vol] 45 mg/dL Normal [facility] Comment on above: Result Comment: The drugs N-Acetylcysteine and Metamizole may falsely depress this assay. Reference Range HDL <40 mg/dL Low HDL Cholesterol HDL >or= 60 mg/dL High HDL Cholesterol Performed By: #### L 501.4100, L501.4405, L500.2500, L501.9985 #### [facility] [address] [place], [address] Cholesterol in LDL [Mass/Vol] 40 mg/dL Normal 0-130 [facility] Comment on above: Performed By: #### L 501.4100, L501.4405, L500.2500, L501.9985 #### [facility] [address] [place], [address] Cholesterol in VLDL [Mass/Vol] 20 mg/dL Normal 5-40 [facility] Comment on above: Performed By: #### L 501.4100, L501.4405, L500.2500, L501.9985 #### [facility] [address] [place], [address] Triglyceride [Mass/Vol] 99 mg/dL Normal [facility] Comment on above: Result Comment: The drugs N-Acetylcysteine and Metamizole may falsely depress this assay. Serum Triglycerides Reference Interval Normal <150 mg/dL Borderline high 150 - 199 mg/dL High 200 - 499 mg/dL Very High > or = 500 mg/dL Performed By: #### L 501.4100, L501.4405, L500.2500, L501.9985 #### [facility] [address] [place], [address] Microalb:Creat Ratio,Random URon 06-27-2024 MALB:CRE Normal <30 mg/g CRE [facility] Comment on above: Result Comment: VIKTOR ENT COULD NOT GIVE SAMPLE Performed By: #### L 500.4100 #### [facility] [address] [place], [address] MICROALBUMIN,UR Normal NO RANGE EST. [facility] Comment on above: Result Comment: VIKTOR ENT COULD NOT GIVE SAMPLE Performed By: #### L 500.4100 #### [facility] [address] [place], [address] UR CREAT Normal NO RANGE EST. [facility] Comment on above: Result Comment: VIKTOR ENT COULD NOT GIVE SAMPLE Performed By: #### L 500.4100 #### [facility] [address] [place], [address] Thyroid Stim Hormone (TSH)on 06-27-2024 TSH 1.99 uIU/mL Normal 0.358-3.74 [facility] Comment on above: Performed By: #### L 501.4100, L501.4405, L500.2500, L501.9985 #### [facility] [address] [place], [address] PSA,Total- Diagnosticon 05-21 PSA, DIAGNOSTIC 0.50 ng/mL Normal 0.0-4.0 [facility] Comment on above: Result Comment: This test was performed using the TPSA assay method for the [employer] chemistry system. Values obtained with different assay methods cannot be used interchangably. When changing PSA assays in the course of monitoring a patient, additional sequential testing should be carried out to confirm baseline values. Performed By: #### L 501.4100, L501.4405, L500.2500, L501.9985 #### [facility] [address] [place], [address] Basophil percentageOrdered B y: Vick Santo on 03-25-2024 Bilirubin [Mass/Vol] 0.70 mg/dL 0.20-1.00 [facility] Comment on above: For patients on eltr ombopag therapy, use of Dimension [place] TBIL is not recommended. Chloride [Moles/Vol] 104 mmol/L 98-107 [facility] Glucose [Mass/Vol] 260 mg/dL 74-106 [facility] Comment on above: Glucose result great er than or equal to 200 mg/dLsuggests DIABETES MELLITUS per A.D.A. criteria. Potassium [Moles/Vol] 3.9 mmol/L 3.5-5.1 [facility] Protein [Mass/Vol] 6.8 g/dL 6.4-8.2 [facility] Sodium [Moles/Vol] 138 mmol/L 136-145 [facility] Laboratory - Chemistry and C hemistry - challengeOrdered By: Vick Santo on 03-25-2024 Albumin/Globulin [Mass ratio] 1.1 {ratio} 0.9-2.4 [facility] ALP [Catalytic activity/Vol] 62 U/L 45-117 [facility] ALT [Catalytic activity/Vol] 13 U/L 16-61 [facility] CO2 [Moles/Vol] 28.0 mmol/L 21.0-32.0 [facility] Globulin (S) [Mass/Vol] 3.3 g/dL 2.2-4.2 [facility] Urea nitrogen/Creatinine [Mass ratio] 23.8 mg/mg 10-20 [facility] No Panel InformationOrdered By: Vick Santo on 03-25-2024 Estimated GFR (MDRD) Amer 92 mL/min >60 [facility] Comment on above: GFR Calc Estimated GFR (MDRD) Non-Af Amer 76 mL/min >60 [facility] Comment on above: Non- GFR Calc Serum or plasma calcium walt urement (mass/volume)Ordered By: Vick Santo on 03-25-2024 Calcium [Mass/Vol] 8.9 mg/dL 8.5-10.1 [facility] Serum or plasma creatinine m easurement (mass/volume)Ordered By: Vick Santo on 03-25-2024 Creatinine [Mass/Vol] 1.01 mg/dL 0.70-1.30 [facility] Comment on above: The validity of the calculated GFR & GFRAA in patients over 70 years has not been determined. Clinical correlation is essential. Serum or plasma urea nitroge n measurement (mass/volume)Ordered By: Vick Santo on 03-25-2024 Urea nitrogen [Mass/Vol] 24 mg/dL 7-18 [facility] Thin prep Papanicolaou smear with manual screeningOrdered By: Vick Santo on 03-25-2024 Thin prep Papanicolaou smear with manual screening 3.5 g/dL 3.2-5.0 [facility] Thin prep Papanicolaou smear with manual screening 11 U/L 15-37 [facility] Thin prep Papanicolaou smear with manual screening 6 5-15 [facility] Whole blood hemoglobin A1c/t otal hemoglobin ratio (mass fraction)Ordered By: Vick Santo on 03-25-2024 HbA1c (Bld) [Mass fraction] 6.1 % 3.8-5.6 [facility] Comment on above: Normal < 5.7 % Predi abetic 5.7 - 6.4 % Diabetic >or= 6.5 % Please note range changes. Basophil percentageOrdered B y: Ron Cooley on 02-27-2024 Chloride [Moles/Vol] 106 mmol/L 98-107 [facility] Glucose [Mass/Vol] 94 mg/dL 74-106 [facility] Potassium [Moles/Vol] 3.9 mmol/L 3.5-5.1 [facility] Sodium [Moles/Vol] 141 mmol/L 136-145 [facility] Laboratory - Chemistry and C hemistry - challengeOrdered By: Ron Cooley on 02-27-2024 ALT [Catalytic activity/Vol] 14 U/L 16-61 [facility] CO2 [Moles/Vol] 28.0 mmol/L 21.0-32.0 [facility] Urea nitrogen/Creatinine [Mass ratio] 22.1 mg/mg 10-20 [facility] No Panel InformationOrdered By: Ron Cooley on 02-27-2024 Estimated GFR (MDRD) Amer 104 mL/min >60 [facility] Comment on above: GFR Calc Estimated GFR (MDRD) Non-Af Amer 86 mL/min >60 [facility] Comment on above: Non- GFR Calc Serum or plasma calcium walt urement (mass/volume)Ordered By: Ron Cooley on 02-27-2024 Calcium [Mass/Vol] 9.3 mg/dL 8.5-10.1 [facility] Serum or plasma creatinine m easurement (mass/volume)Ordered By: Ron Cooley on 02-27-2024 Creatinine [Mass/Vol] 0.90 mg/dL 0.70-1.30 [facility] Comment on above: The validity of the calculated GFR & GFRAA in patients over 70 years has not been determined. Clinical correlation is essential. Serum or plasma urea nitroge n measurement (mass/volume)Ordered By: Ron Cooley on 02-27-2024 Urea nitrogen [Mass/Vol] 20 mg/dL 7-18 [facility] Thin prep Papanicolaou smear with manual screeningOrdered By: Ron Cooley on 02-27-2024 Thin prep Papanicolaou smear with manual screening 15 U/L 15-37 [facility] Thin prep Papanicolaou smear with manual screening 7 5-15 [facility] Whole blood hemoglobin A1c/t otal hemoglobin ratio (mass fraction)Ordered By: Ron Cooley on 02-27-2024 HbA1c (Bld) [Mass fraction] 6.1 % 3.8-5.6 [facility] Comment on above: Normal < 5.7 % Predi abetic 5.7 - 6.4 % Diabetic >or= 6.5 % Please note range changes. Absolute lymphocyte countOrd ered By: Ron Cooley on 12-15-2023 Lymphocytes Auto (Unsp spec) [#/Vol] 3.13 10*3/uL 0.83-4.51 [facility] Automated lymphocyte count a s percentage of total leukocytesOrdered By: Ron Cooley on 12-15-2023 Lymphocytes/100 WBC Auto (Unsp spec) 38.1 % 19-41 [facility] Basophil percentageOrdered B y: Ron Cooley on 12-15-2023 Basophils/100 WBC (Bld) 0.7 % 0-1 [facility] Bilirubin [Mass/Vol] 0.80 mg/dL 0.20-1.00 [facility] Comment on above: For patients on eltr ombopag therapy, use of Dimension [place] TBIL is not recommended. Chloride [Moles/Vol] 107 mmol/L 98-107 [facility] Cholesterol [Mass/Vol] 136 mg/dL <200 [facility] Comment on above: <200 mg/dL Desirable 200-240 mg/dL Borderline >240 mg/dL High Risk Eosinophils/100 WBC (Bld) 1.8 % 0-5 [facility] Glucose [Mass/Vol] 87 mg/dL 74-106 [facility] Hemoglobin (Bld) [Mass/Vol] 15.3 g/dL 13.0-16.5 [facility] Monocytes/100 WBC (Bld) 10.5 % 0-10 [facility] Neutrophils (Bld) [#/Vol] 4.0 10*3/uL 2.0-7.7 [facility] Neutrophils/100 WBC (Bld) 48.4 % 47-70 [facility] Potassium [Moles/Vol] 3.7 mmol/L 3.5-5.1 [facility] Protein [Mass/Vol] 7.2 g/dL 6.4-8.2 [facility] Sodium [Moles/Vol] 140 mmol/L 136-145 [facility] Triglyceride [Mass/Vol] 127 mg/dL <199 [facility] Comment on above: The drugs N-Acetylcy steine and Metamizole may falsely depress this assay.Serum Triglycerides Reference Interval Normal <150 mg/dL Borderline high 150 - 199 mg/dL High 200 - 499 mg/dL Very High > or = 500 mg/dL WBC (Bld) [#/Vol] 8.2 10*3/uL 4.4-11.0 [facility] Determination of erythrocyte mean corpuscular volume (MCV)Ordered By: Ron Cooley on 12-15-2023 MCV (RBC) [Entitic vol] 90.0 fL 80-94 [facility] Erythrocyte distribution wid th ratioOrdered By: Ron Cooley on 12-15-2023 Erythrocyte distribution width (RBC) [Ratio] 13.2 % 11.6-14.6 [facility] Erythrocyte distribution wid th standard deviationOrdered By: Ron Cooley on 12-15-2023 Erythrocyte distribution width (RBC) [Entitic vol] 43.5 fL 35.1-43.9 [facility] Hematocrit Auto (Bld) [Volum e fraction]Ordered By: Ron Cooley on 12-15-2023 Hematocrit (Bld) [Volume fraction] 46.1 % 40-54 [facility] High density lipoprotein (HD L) measurementOrdered By: Ron Cooley on 12-15-2023 Cholesterol in HDL (Body fld) [Mass/Vol] 50 mg/dL >40 [facility] Comment on above: The drugs N-Acetylcy steine and Metamizole may falsely depress this assay. Reference Range HDL <40 mg/dL Low HDL Cholesterol HDL >or= 60 mg/dL High HDL Cholesterol Immature granulocytes/100 WB C Auto (Bld)Ordered By: Ron Cooley on 12-15-2023 Immature granulocytes/100 WBC (Bld) 0.500 % 0.0-0.9 [facility] Comment on above: IG% - Immature Granu locytes (promyelocytes, myelocytes and metamyelocytes) > 1% indicates that a LEFT SHIFT is Present. Laboratory - Chemistry and C hemistry - challengeOrdered By: Ron Cooley on 12-15-2023 Albumin/Globulin [Mass ratio] 1.1 {ratio} 0.9-2.4 [facility] ALP [Catalytic activity/Vol] 67 U/L 45-117 [facility] ALT [Catalytic activity/Vol] 12 U/L 16-61 [facility] CO2 [Moles/Vol] 29.0 mmol/L 21.0-32.0 [facility] Globulin (S) [Mass/Vol] 3.5 g/dL 2.2-4.2 [facility] Magnesium [Mass/Vol] 1.9 mg/dL 1.6-2.6 [facility] Urea nitrogen/Creatinine [Mass ratio] 19.3 mg/mg 10-20 [facility] Laboratory - Hematology and Cell countsOrdered By: Ron Cooley on 12-15-2023 MCH (RBC) [Entitic mass] 29.9 pg 27.0-32.0 [facility] MCHC (RBC) [Mass/Vol] 33.2 g/dL 32-36 [facility] Nucleated RBC/100 WBC (Bld) [Ratio] 0 % 0-5 [facility] Platelets (Bld) [#/Vol] 240 10*3/uL 150-450 [facility] Low density lipoprotein (LDL ) cholesterol measurementOrdered By: Ron Cooley on 12-15-2023 Cholesterol in LDL (Body fld) [Moles/Vol] 61 mg/dL 0-130 [facility] No Panel InformationOrdered By: Ron Cooley on 12-15-2023 Estimated GFR (MDRD) Amer 101 mL/min >60 [facility] Comment on above: GFR Calc Estimated GFR (MDRD) Non-Af Amer 83 mL/min >60 [facility] Comment on above: Non- GFR Calc Platelet mean volume Parish-Ec ker (Bld) [Entitic vol]Ordered By: Ron Cooley on 12-15-2023 Platelet mean volume (Bld) [Entitic vol] 11.1 fL 6.2-12.0 [facility] RBC Auto (Bld) [#/Vol]Ordere d By: Ron Cooley on 12-15-2023 RBC (Bld) [#/Vol] 5.12 10*6/uL 4.6-6.2 [facility] Serum or plasma calcium walt urement (mass/volume)Ordered By: Ron Cooley on 12-15-2023 Calcium [Mass/Vol] 9.2 mg/dL 8.5-10.1 [facility] Serum or plasma creatinine m easurement (mass/volume)Ordered By: Ron Cooley on 12-15-2023 Creatinine [Mass/Vol] 0.93 mg/dL 0.70-1.30 [facility] Comment on above: The validity of the calculated GFR & GFRAA in patients over 70 years has not been determined. Clinical correlation is essential. Serum or plasma thyroid stim ulating hormone (TSH) measurement (units/volume)Ordered By: Ron Cooley on 12-15-2023 TSH Qn 1.60 uIU/mL 0.358-3.74 [facility] Serum or plasma urea nitroge n measurement (mass/volume)Ordered By: Ron Cooley on 12-15-2023 Urea nitrogen [Mass/Vol] 18 mg/dL 7-18 [facility] Thin prep Papanicolaou smear with manual screeningOrdered By: Ron Cooley on 12-15-2023 Thin prep Papanicolaou smear with manual screening 3.7 g/dL 3.2-5.0 [facility] Thin prep Papanicolaou smear with manual screening 14 U/L 1537 [facility] Thin prep Papanicolaou smear with manual screening 4 5-15 [facility] Very low density lipoprotein (VLDL) cholesterol measurementOrdered By: Ron Cooley on 12-15-2023 Cholesterol in VLDL Calc [Moles/Vol] 25 mg/dL 5-40 [facility] Whole blood hemoglobin A1c/t otal hemoglobin ratio (mass fraction)Ordered By: Ron Cooley on 12-15-2023 HbA1c (Bld) [Mass fraction] 5.9 % 3.8-5.6 [facility] Comment on above: Normal < 5.7 % Predi abetic 5.7 - 6.4 % Diabetic >or= 6.5 % Please note range changes. Albumin Elph [Mass/Vol]Order ed By: Vick Santo on 11-23-2023 Albumin [Mass/Vol] 3.6 g/dL 2.9-4.4 [facility] Basophil percentageOrdered B y: Vick Santo on 11-23-2023 Basophil percentage Comment: . [facility] Comment on above: Presence of monoclon al protein is unclear at this time. Suggestrepeat in 3 to 6 months if clinically indicated.Performed at: [facility] [address] [id number] Director: Vj Garcia PhD, Phone: [phone] Interpretation of serum or p lasma protein pattern by immunofixation (narrative resultOrdered By: Vick Santo on 11-23-2023 Protein Fractions Immunofixation Blanco [Interp] Not Observed g/dL Not Observed [facility] No Panel InformationOrdered By: Vick Santo on 11-23-2023 Addendum Document Comment . [facility] Comment on above: Protein electrophore sis scan will follow via computer,mail, or vp hr diversity delivery. Serum [id number] measu rement by electrophoresisOrdered By: Vick Santo on 11-23-2023 Alpha 1 globulin Elph [Mass/Vol] 0.4 g/dL 0.0-0.4 [facility] Alpha 1 globulin Elph [Mass/Vol] 1.0 g/dL 0.4-1.0 [facility] Serum globulin measurement ( mass/volume)Ordered By: Vick Santo on 11-23-2023 Globulin (S) [Mass/Vol] 3.1 g/dL 2.2-3.9 [facility] [facility] Serum or plasma IgA measurem ent (mass/volume)Ordered By: Vick Santo on 11-23-2023 IgA [Mass/Vol] 167 mg/dL 61-437 [facility] Serum or plasma IgG measurem ent (mass/volume)Ordered By: Vick Santo on 11-23-2023 IgG [Mass/Vol] 849 mg/dL 603-1613 [facility] Serum or plasma IgM measurem ent (mass/volume)Ordered By: Vick Santo on 11-23-2023 IgM [Mass/Vol] 91 mg/dL 15-143 [facility] Serum or plasma beta globuli n measurement by electrophoresis (mass/volume)Ordered By: Vick Santo on 11-23-2023 Beta globulin Elph [Mass/Vol] 1.0 g/dL 0.7-1.3 [facility] Serum or plasma gamma globul in measurement by electrophoresis (mass/volume)Ordered By: Vick Santo on 11-23-2023 Gamma globulin Elph [Mass/Vol] 0.7 g/dL 0.4-1.8 [facility] Serum or plasma immunoelectr ophoresis interpretation (nominal result)Ordered By: Vick Santo on 11-23-2023 Interpretation IEP [Interp] Comment . [facility] Comment on above: No monoclonality det ected. Thin prep Papanicolaou smear with manual screeningOrdered By: Vick Santo on 11-23-2023 Thin prep Papanicolaou smear with manual screening 1.2 0.7-1.7 [facility] Total protein bloodOrdered B y: Vick Santo on 11-23-2023 Protein [Mass/Vol] 6.7 g/dL 6.0-8.5 [facility] Basophil percentageOrdered B y: Natasha Gregory on 10-31-2023 Chloride [Moles/Vol] 107 mmol/L 98-107 [facility] Glucose [Mass/Vol] 102 mg/dL 74-106 [facility] Comment on above: Fasting Glucose resu lt from 100 to 125 mg/dL suggests IMPAIRED HOMEOSTASIS per A.D.A. criteria. Potassium [Moles/Vol] 3.6 mmol/L 3.5-5.1 [facility] Sodium [Moles/Vol] 142 mmol/L 136-145 [facility] Laboratory - Chemistry and C hemistry - challengeOrdered By: Natasha Gregory on 10-31-2023 ALT [Catalytic activity/Vol] 11 U/L 16-61 [facility] CO2 [Moles/Vol] 28.0 mmol/L 21.0-32.0 [facility] Urea nitrogen/Creatinine [Mass ratio] 22.7 mg/mg 10-20 [facility] No Panel InformationOrdered By: Natasha Gregory on 10-31-2023 Estimated GFR (MDRD) Amer 101 mL/min >60 [facility] Comment on above: GFR Calc Estimated GFR (MDRD) Non-Af Amer 84 mL/min >60 [facility] Comment on above: Non- GFR Calc Serum or plasma calcium walt urement (mass/volume)Ordered By: Natasha Gregory on 10-31-2023 Calcium [Mass/Vol] 8.8 mg/dL 8.5-10.1 [facility] Serum or plasma creatinine m easurement (mass/volume)Ordered By: Natasha Gregory on 10-31-2023 Creatinine [Mass/Vol] 0.93 mg/dL 0.70-1.30 [facility] Comment on above: The validity of the calculated GFR & GFRAA in patients over 70 years has not been determined. Clinical correlation is essential. Serum or plasma urea nitroge n measurement (mass/volume)Ordered By: Natasha Gregory on 10-31-2023 Urea nitrogen [Mass/Vol] 21 mg/dL 7-18 [facility] Thin prep Papanicolaou smear with manual screeningOrdered By: Natasha Gregory on 10-31-2023 Thin prep Papanicolaou smear with manual screening 10 U/L 15-37 [facility] Thin prep Papanicolaou smear with manual screening 7 5-15 [facility] Whole blood hemoglobin A1c/t otal hemoglobin ratio (mass fraction)Ordered By: Natasha Gregory on 10-31-2023 HbA1c (Bld) [Mass fraction] 5.7 % 3.8-5.6 [facility] Comment on above: Normal < 5.7 % Predi abetic 5.7 - 6.4 % Diabetic >or= 6.5 % Please note range changes. Basophil percentageOrdered B y: Natasha Gregory on 08-03-2023 Chloride [Moles/Vol] 108 mmol/L 98-107 [facility] Cholesterol [Mass/Vol] 127 mg/dL <200 [facility] Comment on above: <200 mg/dL Desirable 200-240 mg/dL Borderline >240 mg/dL High Risk Glucose [Mass/Vol] 66 mg/dL 74-106 [facility] Potassium [Moles/Vol] 3.5 mmol/L 3.5-5.1 [facility] Sodium [Moles/Vol] 139 mmol/L 136-145 [facility] Triglyceride [Mass/Vol] 101 mg/dL <199 [facility] Comment on above: The drugs N-Acetylcy steine and Metamizole may falsely depress this assay.Serum Triglycerides Reference Interval Normal <150 mg/dL Borderline high 150 - 199 mg/dL High 200 - 499 mg/dL Very High > or = 500 mg/dL Laboratory - Chemistry and C hemistry - challengeOrdered By: Natasha Gregory on 08-03-2023 ALT [Catalytic activity/Vol] 11 U/L 16-61 [facility] CO2 [Moles/Vol] 26.0 mmol/L 21.0-32.0 [facility] Urea nitrogen/Creatinine [Mass ratio] 19.8 mg/mg 10-20 [facility] No Panel InformationOrdered By: Natasha Gregory on 08-03-2023 Urine Microalbumin/Creatinine Ratio 14.9 mg/g CRE <30 [facility] Estimated GFR (MDRD) Amer 97 mL/min >60 [facility] Comment on above: GFR Calc Estimated GFR (MDRD) Non-Af Amer 81 mL/min >60 [facility] Comment on above: Non- GFR Calc Thyroid Stimulating Hormone (TSH) 1.96 uIU/mL 0.358-3.74 [facility] Serum or plasma calcium walt urement (mass/volume)Ordered By: Natasha Gregory on 08-03-2023 Calcium [Mass/Vol] 9.0 mg/dL 8.5-10.1 [facility] Serum or plasma cholesterol in HDL measurement (mass/volume)Ordered By: Natasha Gregory on 08-03-2023 Cholesterol in HDL [Mass/Vol] 49 mg/dL >40 [facility] Comment on above: The drugs N-Acetylcy steine and Metamizole may falsely depress this assay. Reference Range HDL <40 mg/dL Low HDL Cholesterol HDL >or= 60 mg/dL High HDL Cholesterol Serum or plasma cholesterol in VLDL measurement (mass/volume)Ordered By: Natasha Gregory on 08-03-2023 Cholesterol in VLDL [Mass/Vol] 20 mg/dL 5-40 [facility] Serum or plasma creatinine m easurement (mass/volume)Ordered By: Natasha Gregory on 08-03-2023 Creatinine [Mass/Vol] 0.96 mg/dL 0.70-1.30 [facility] Comment on above: The validity of the calculated GFR & GFRAA in patients over 70 years has not been determined. Clinical correlation is essential. Serum or plasma low density lipoprotein (LDL) cholesterol measurement (mass/volume)Ordered By: Natasha Gregory on 08-03-2023 Cholesterol in LDL [Mass/Vol] 58 mg/dL 0-130 [facility] Serum or plasma urea nitroge n measurement (mass/volume)Ordered By: Natasha Gregory on 08-03-2023 Urea nitrogen [Mass/Vol] 19 mg/dL 7-18 [facility] Thin prep Papanicolaou smear with manual screeningOrdered By: Natasha Gregory on 08-03-2023 Thin prep Papanicolaou smear with manual screening 18.2 mg/L NO RANGE EST. [facility] Thin prep Papanicolaou smear with manual screening 9 U/L 15-37 [facility] Thin prep Papanicolaou smear with manual screening 5 5-15 [facility] Urine creatinine measurement (mass/volume)Ordered By: Natasha Gregory on 08-03-2023 Creatinine (U) [Mass/Vol] 122.00 mg/dL NO RANGE EST. [facility] Whole blood hemoglobin A1c/t otal hemoglobin ratio (mass fraction)Ordered By: Natasha Colt on 08-03-2023 HbA1c (Bld) [Mass fraction] 6.2 % 3.8-5.6 [facility] Comment on above: Normal < 5.7 % Predi abetic 5.7 - 6.4 % Diabetic >or= 6.5 % Please note range changes. Basophil percentageOrdered B y: Dr. Santo on 05-09-2023 WBC (Bld) [#/Vol] 10.2 10*3/uL 4.4-11.0 [facility] Blood erythrocytes count (nu mber/volume)Ordered By: Dr. Santo on 05-09-2023 RBC (Bld) [#/Vol] 4.60 10*6/uL 4.6-6.2 [facility] Blood hemoglobin measurement (mass/volume)Ordered By: Dr. Santo on 05-09-2023 Hemoglobin (Bld) [Mass/Vol] 14.1 g/dL 13.0-16.5 [facility] Blood platelet mean volumeOr dered By: Dr. Santo on 05-09-2023 Platelet mean volume (Bld) [Entitic vol] 10.7 fL 6.2-12.0 [facility] Determination of erythrocyte mean corpuscular volume (MCV)Ordered By: Dr. Santo on 05-09-2023 MCV (RBC) [Entitic vol] 90.9 fL 80-94 [facility] Hematocrit Auto (Bld) [Volum e fraction]Ordered By: Dr. Santo on 05-09-2023 Hematocrit (Bld) [Volume fraction] 41.8 % 40-54 [facility] Laboratory - Chemistry and C hemistry - challengeOrdered By: Dr. Santo on 05-09-2023 Cobalamin (Vitamin B12) [Mass/Vol] 281 pg/mL 211-911 [facility] Laboratory - Hematology and Cell countsOrdered By: Dr. Santo on 05-09-2023 Erythrocyte distribution width (RBC) [Entitic vol] 44.1 fL 35.1-43.9 [facility] Erythrocyte distribution width (RBC) [Ratio] 13.3 % 11.6-14.6 [facility] MCH (RBC) [Entitic mass] 30.7 pg 27.0-32.0 [facility] MCHC Auto (RBC) [Mass/Vol]Or dered By: Dr. Santo on 05-09-2023 MCHC (RBC) [Mass/Vol] 33.7 g/dL 32-36 [facility] No Panel InformationOrdered By: Vick Santo on 05-09-2023 Free Lambda Light Chains, Quant 20.2 mg/L 5.7-26.3 [facility] Whole Blood Vitamin B1 Level 118.1 nmol/L 66.5-200.0 [facility] Comment on above: Performed at: [address] [id number] Director: Vj Garcia PhD, Phone: [phone] at: [facility] Lab[address] [id number] Director: Sherine Mendez MD, Phone: [phone] No Panel InformationOrdered By: Dr. Santo on 05-09-2023 Thyroid Stimulating Hormone (TSH) 2.11 uIU/mL 0.358-3.74 [facility] Platelets bldOrdered By: Dr. Santo on 05-09-2023 Platelets (Bld) [#/Vol] 285 10*3/uL 150-450 [facility] Serum immunoglobulin kappa l ight chains/immunoglobulin lambda light chains mass ratioOrdered By: Vick Santo on 05-09-2023 Immunoglobulin light chains.kappa/Immunoglobul in light chains.lambda (S) [Mass ratio] 1.69 0.26-1.65 [facility] Serum or plasma folate measu rement (mass/volume)Ordered By: Dr. Santo on 05-09-2023 Folate [Mass/Vol] 11.40 ng/mL 3.1-55.4 [facility] Serum or plasma immunoglobul in kappa light chains measurement (mass/volume)Ordered By: Vick Santo on 05-09-2023 Immunoglobulin light chains.kappa [Mass/Vol] 34.1 mg/L 3.3-19.4 [facility] Basophil percentageOrdered B y: Dr. Gregory on 05-01-2023 Chloride [Moles/Vol] 107 mmol/L 98-107 [facility] Glucose [Mass/Vol] 98 mg/dL 74-106 [facility] Potassium [Moles/Vol] 3.8 mmol/L 3.5-5.1 [facility] Sodium [Moles/Vol] 140 mmol/L 136-145 [facility] Laboratory - Chemistry and C hemistry - challengeOrdered By: Dr. Gregory on 05-01-2023 ALT [Catalytic activity/Vol] 13 U/L 16-61 [facility] CO2 [Moles/Vol] 26.0 mmol/L 21.0-32.0 [facility] Urea nitrogen/Creatinine [Mass ratio] 23.4 mg/mg 10-20 [facility] No Panel InformationOrdered By: Dr. Gregory on 05-01-2023 Estimated GFR (MDRD) Amer 95 mL/min >60 [facility] Comment on above: GFR Calc Estimated GFR (MDRD) Non-Af Amer 78 mL/min >60 [facility] Comment on above: Non- GFR Calc Serum or plasma calcium walt urement (mass/volume)Ordered By: Dr. Gregory on 05-01-2023 Calcium [Mass/Vol] 9.0 mg/dL 8.5-10.1 [facility] Serum or plasma creatinine m easurement (mass/volume)Ordered By: Dr. Gregory on 05-01-2023 Creatinine [Mass/Vol] 0.98 mg/dL 0.70-1.30 [facility] Comment on above: The validity of the calculated GFR & GFRAA in patients over 70 years has not been determined. Clinical correlation is essential. Serum or plasma urea nitroge n measurement (mass/volume)Ordered By: Dr. Gregory on 05-01-2023 Urea nitrogen [Mass/Vol] 23 mg/dL 7-18 [facility] Thin prep Papanicolaou smear with manual screeningOrdered By: Dr. Gregory on 05-01-2023 Thin prep Papanicolaou smear with manual screening 12 U/L 15-37 [facility] Thin prep Papanicolaou smear with manual screening 7 5-15 [facility] Whole blood hemoglobin A1c/t otal hemoglobin ratio (mass fraction)Ordered By: Dr. Gregory on 05-01-2023 HbA1c (Bld) [Mass fraction] 6.2 % 3.8-5.6 [facility] Comment on above: Normal < 5.7 % Predi abetic 5.7 - 6.4 % Diabetic >or= 6.5 % Please note range changes. Absolute lymphocyte countOrd ered By: Dr. Cooley on 02-21-2023 Lymphocytes Auto (Unsp spec) [#/Vol] 3.36 10*3/uL 0.83-4.51 [facility] Basophil percentageOrdered B y: Dr. Cooley on 02-21-2023 Basophils/100 WBC (Bld) 0.7 % 0-1 [facility] Bilirubin [Mass/Vol] 0.60 mg/dL 0.20-1.00 [facility] Comment on above: For patients on eltr ombopag therapy, use of Dimension [place] TBIL is not recommended. Chloride [Moles/Vol] 104 mmol/L 98-107 [facility] Cholesterol [Mass/Vol] 133 mg/dL <200 [facility] Comment on above: <200 mg/dL Desirable 200-240 mg/dL Borderline >240 mg/dL High Risk Eosinophils/100 WBC (Bld) 1.5 % 0-5 [facility] Glucose [Mass/Vol] 232 mg/dL 74-106 [facility] Comment on above: Glucose result great er than or equal to 200 mg/dLsuggests DIABETES MELLITUS per A.D.A. criteria. Neutrophils (Bld) [#/Vol] 5.4 10*3/uL 2.0-7.7 [facility] Neutrophils/100 WBC (Bld) 53.2 % 47-70 [facility] Potassium [Moles/Vol] 4.0 mmol/L 3.5-5.1 [facility] Protein [Mass/Vol] 6.8 g/dL 6.4-8.2 [facility] Sodium [Moles/Vol] 137 mmol/L 136-145 [facility] Triglyceride [Mass/Vol] 117 mg/dL <199 [facility] Comment on above: The drugs N-Acetylcy steine and Metamizole may falsely depress this assay.Serum Triglycerides Reference Interval Normal <150 mg/dL Borderline high 150 - 199 mg/dL High 200 - 499 mg/dL Very High > or = 500 mg/dL WBC (Bld) [#/Vol] 10.1 10*3/uL 4.4-11.0 [facility] Blood erythrocytes count (nu mber/volume)Ordered By: Dr. Cooley on 02-21-2023 RBC (Bld) [#/Vol] 4.56 10*6/uL 4.6-6.2 [facility] Blood hemoglobin measurement (mass/volume)Ordered By: Dr. Cooley on 02-21-2023 Hemoglobin (Bld) [Mass/Vol] 14.0 g/dL 13.0-16.5 [facility] Blood lymphocytes/100 leukoc ytesOrdered By: Dr. Coolye on 02-21-2023 Lymphocytes/100 WBC (Bld) 33.3 % 19-41 [facility] Blood monocytes/100 leukocyt esOrdered By: Dr. Cooley on 02-21-2023 Monocytes/100 WBC (Bld) 10.4 % 0-10 [facility] Blood platelet mean volumeOr dered By: Dr. Cooley on 02-21-2023 Platelet mean volume (Bld) [Entitic vol] 10.2 fL 6.2-12.0 [facility] Determination of erythrocyte mean corpuscular volume (MCV)Ordered By: Dr. Cooley on 02-21-2023 MCV (RBC) [Entitic vol] 92.5 fL 80-94 [facility] Hematocrit Auto (Bld) [Volum e fraction]Ordered By: Dr. Cooley on 02-21-2023 Hematocrit (Bld) [Volume fraction] 42.2 % 40-54 [facility] Laboratory - Chemistry and C hemistry - challengeOrdered By: Dr. Cooley on 02-21-2023 ALP [Catalytic activity/Vol] 68 U/L 45-117 [facility] ALT [Catalytic activity/Vol] 19 U/L 16-61 [facility] CO2 [Moles/Vol] 27.0 mmol/L 21.0-32.0 [facility] Globulin (S) [Mass/Vol] 3.4 g/dL 2.2-4.2 [facility] Magnesium [Mass/Vol] 1.9 mg/dL 1.6-2.6 [facility] Urea nitrogen/Creatinine [Mass ratio] 27.1 mg/mg 10-20 [facility] Laboratory - Hematology and Cell countsOrdered By: Dr. Cooley on 02-21-2023 Erythrocyte distribution width (RBC) [Entitic vol] 47.2 fL 35.1-43.9 [facility] Erythrocyte distribution width (RBC) [Ratio] 14.0 % 11.6-14.6 [facility] Immature granulocytes/100 WBC (Bld) 0.900 % 0.0-0.9 [facility] Comment on above: IG% - Immature Granu locytes (promyelocytes, myelocytes and metamyelocytes) > 1% indicates that a LEFT SHIFT is Present. MCH (RBC) [Entitic mass] 30.7 pg 27.0-32.0 [facility] Nucleated RBC/100 WBC (Bld) [Ratio] 0 % 0-5 [facility] MCHC Auto (RBC) [Mass/Vol]Or dered By: Dr. Cooley on 02-21-2023 MCHC (RBC) [Mass/Vol] 33.2 g/dL 32-36 [facility] No Panel InformationOrdered By: Dr. Cooley on 02-21-2023 Estimated GFR (MDRD) Amer 93 mL/min >60 [facility] Comment on above: GFR Calc Estimated GFR (MDRD) Non-Af Amer 77 mL/min >60 [facility] Comment on above: Non- GFR Calc Thyroid Stimulating Hormone (TSH) 1.59 uIU/mL 0.358-3.74 [facility] Urine Microalbumin/Creatinine Ratio 10.3 mg/g CRE <30 [facility] Platelets bldOrdered By: Dr. Cooley on 02-21-2023 Platelets (Bld) [#/Vol] 330 10*3/uL 150-450 [facility] Serum or plasma albumin walt urement (mass/volume)Ordered By: Dr. Cooley on 02-21-2023 Albumin [Mass/Vol] 3.4 g/dL 3.2-5.0 [facility] Serum or plasma albumin/glob ulin mass ratioOrdered By: Dr. Cooley on 02-21-2023 Albumin/Globulin [Mass ratio] 1.0 {ratio} 0.9-2.4 [facility] Serum or plasma calcium walt urement (mass/volume)Ordered By: Dr. Cooley on 02-21-2023 Calcium [Mass/Vol] 9.1 mg/dL 8.5-10.1 [facility] Serum or plasma cholesterol in HDL measurement (mass/volume)Ordered By: Dr. Cooley on 02-21-2023 Cholesterol in HDL [Mass/Vol] 52 mg/dL >40 [facility] Comment on above: The drugs N-Acetylcy steine and Metamizole may falsely depress this assay. Reference Range HDL <40 mg/dL Low HDL Cholesterol HDL >or= 60 mg/dL High HDL Cholesterol Serum or plasma cholesterol in VLDL measurement (mass/volume)Ordered By: Dr. Cooley on 02-21-2023 Cholesterol in VLDL [Mass/Vol] 23 mg/dL 5-40 [facility] Serum or plasma creatinine m easurement (mass/volume)Ordered By: Dr. Cooley on 02-21-2023 Creatinine [Mass/Vol] 1.00 mg/dL 0.70-1.30 [facility] Comment on above: The validity of the calculated GFR & GFRAA in patients over 70 years has not been determined. Clinical correlation is essential. Serum or plasma low density lipoprotein (LDL) cholesterol measurement (mass/volume)Ordered By: Dr. Cooley on 02-21-2023 Cholesterol in LDL [Mass/Vol] 58 mg/dL 0-130 [facility] Serum or plasma urea nitroge n measurement (mass/volume)Ordered By: Dr. Cooley on 02-21-2023 Urea nitrogen [Mass/Vol] 27 mg/dL 7-18 [facility] Thin prep Papanicolaou smear with manual screeningOrdered By: Dr. Cooley on 02-21-2023 Thin prep Papanicolaou smear with manual screening 9 U/L 15-37 [facility] Thin prep Papanicolaou smear with manual screening 6 5-15 [facility] Thin prep Papanicolaou smear with manual screening 11.9 mg/L NO RANGE EST. [facility] Urine creatinine measurement (mass/volume)Ordered By: Dr. Cooley on 02-21-2023 Creatinine (U) [Mass/Vol] 115.00 mg/dL NO RANGE EST. [facility] Whole blood hemoglobin A1c/t otal hemoglobin ratio (mass fraction)Ordered By: Dr. Cooley on 02-21-2023 HbA1c (Bld) [Mass fraction] 6.4 % 3.8-5.6 [facility] Comment on above: Normal < 5.7 % Predi abetic 5.7 - 6.4 % Diabetic >or= 6.5 % Please note range changes. Anabelle 02-14-2023 GUADALUPEN Telephone (NIKOS) KEVIN GRIFFITH ([id number]) 1945 M Date Time Provider Department 02/14/23 JAYLYN NIEVES During your visit today, we recorded the following information about you: Raeann Vizcarra 02/14/2023 2:29 PM Signed Patient's spouse (Brennen) called requesting to speak to medical staff regarding Kevin's condition. Brennen reports Kevin has had an increase in falls/weakness that they believe to be related to Parkinson's. Brennen also states that Kevin has become more aggressive. Brennen is very concerned. Please call her at [phone]. Raeann Harrison, RN 02/14/2023 3:05 PM Signed Received voicemail from patients' on Mon02/14/2023 2:28 PM Transcript below: This is Brennen Griffith. My phone number is [phone]. I'm calling for my Kevin Griffith. His date of is 1945. I'm directing this to Dr. Nieves's nurse. Kevin fell Monday morning and he [...] really bad or it's gonna be a intermediate and I don't wanna do that so please give me a call at your earliest convenience. Thank you. Abbey. Message shared with CAR for further guidance. YVONNE Naik, RN February 14, 2023 3:04 PM Seven Harrison RN 02/14/2023 3:08 PM Signed message sent to patient and for further assessment. Awaiting reply. YVONNE Naik, RN February 14, 2023 3:08 PM Seven Harrison RN 02/15/2023 9:21 AM Signed Patient responded to inquire and denied any s/s of UTI, denied recent illness and any recent changes in medications. Returned call to patient to inquire about lightheadedness. I won't say I'm dizzy, ill say I'm imbalanced, I'll be standing there and just keel over. He shares that this does not happen at any particular time of the day, rather throughout the day at any time. He has not yet started PT. Appointments were made but had to be cancelled. Updates shared with MD CAR. YVONNE Naik, RN February 15, 2023 9:21 AM Jaylyn Nieves MD 02/15/2023 9:31 AM Signed Parkinson's should not change suddenly like this. When symptoms abruptly get worse we look for a medical cause such as infection. I wonder if low BP is contributing. Sinemet does not help the gait so a medication change would not be expected to help his current problems. Recommend seeing PCP and PT as already ordered. Seven Harrison RN 02/15/2023 10:00 AM Addendum Shared below update with patient. He denies any issues with low BP, instead says that it's been slightly elevated. Reviewed sinemet information with regards to balance/ gait/ dystonias. He is to see Ortho today and afterwards will begin PT based on their recommendations. Was advised to contact PCP to assess underlying cause. Has not been able to get in with Dr. Webb, but RN suggested seeing if anyone else on the team is available. He said he might be able to get in with a PA. He will follow those steps and contact the office with any additional information. No further issues/ action needed at this time. YVONNE Naik, RN February 15, 2023 9:58 AM Seven Harrison RN 02/16/2023 1:20 PM Signed Shared recent message with CAR. She confirms that patient needs to be seen by PCP for work up of underling issues and no medication changes will be made at this time. As expressed potential difficulty with my chart messaging, returned call. Spoke with Kevin and shared CAR's update. He verbalized understanding and RN reiterated guidance to be seen by PCP Tracey or a member of his team to decipher underlying causes. Kevin shared that after the ortho visit yesterday, he will be in the boot for two weeks until the imaging is repatriated and then they will know more. No further issues at this time. CAR notified. YVONNE Naik, RN February 16, 2023 1:20 PM Allergies As of Date: 02/14/2023 Noted Allergy Reaction REGLAN (METOCLOPRAMIDE) 08/25/2021 1 - Mental Status Change Comments: psychosis Date Reviewed: 12/12/2022 Reviewed by: Sneha Craft MA - Fully Assessed Reason for Visit: Patient Update [1234] Cmt: Increased falls, aggression Prescriptions as of 02/16/2023 - finasteride (PROSCAR) 5 mg tablet (more content not included)... Normal [facility] CNPParul 01-10-2023 CNPN Telephone (NRMDN) KEVIN GRIFFITH ([id number]) 1945 M Date Time Provider Department 01/10/23 JAYLYN NIEVES During your visit today, we recorded the following information about you: Grace Sibley RN 01/10/2023 4:24 PM Signed Voicemail received January 10, 2023 [id number] My name is Brennen Griffith. My phone number is [phone]. My 's name is Kevin Griffith. He is a patient of Dr. Nieves. His birthday is [birth year]. I'm calling to [...] do to help Kevin. Thank you. Abbey omreno now. Call to patient Reports decline in [...] no improvement. Routing to provider for review. Jaylyn Nieves MD 01/10/2023 4:39 PM Signed Agreed. Consider seeing PCP if cold symptoms not improving. Improvement in Parkinson's symptoms when they are exacerbated by medical illness can lag behind improvement in URI symptoms by days or more. Changing Sinemet during medical illness exacerbations is not helpful. Marguerite Del Real MA 01/11/2023 10:00 AM Signed LVM for Brennen to Karen Parra RN 01/13/2023 2:33 PM Signed Received voicemail 01-13-23 at 12:31 PM. My name is Brennen Griffith. My phone number is [phone]. This is in regard to Kevin Griffith. I'm calling to return a call. Hopefully someone will call me back again. Sorry I haven't been able to answer the phone this week. I'm not feeling well either. Thank you. Call back to patient's Brennen to provide message from Dr. Nieves below. Patient's verbalizes understanding. She states they did go to PCP yesterday and he was prescribed a z pack and tessalon perles. CADENCE Byers, RN January 13, 2023 2:32 PM Allergies As of Date: 01/10/2023 Noted Allergy Reaction REGLAN (METOCLOPRAMIDE) 08/25/2021 1 - Mental Status Change Comments: psychosis Date Reviewed: 12/12/2022 Reviewed by: Sneha Craft MA - Fully Assessed Reason for Visit: Patient Update [1234] Prescriptions as of 01/13/2023 - finasteride (PROSCAR) 5 mg tablet - sertraline (ZOLOFT) 50 mg tablet - OXYGEN-AIR DELIVERY SYSTEMS MISC Inhale as instructed. - FREESTYLE CALIXTO 2 SENSOR kit use to TEST BLOOD SUGAR as directed CHANGE EVERY 14 DAYS - potassium chloride ER (KLOR-CON M20) 20 mEq tablet once daily. - SURE COMFORT PEN NEEDLE 31 gauge x 5/16 - carbidopa-levodopa (SINEMET 25-100) 25-100 mg per tablet Take 2 tablets by mouth three times daily. - insulin glargine U-300 conc (TOUJEO MAX U-300 SOLOSTAR) 300 unit/mL (3 mL) inpn Inject 88 Units subcutaneously. - hydroCHLOROthiazide (HYDRODIURIL, ESIDRIX) 12.5 mg tablet Take 12.5 mg by mouth once daily. - insulin aspart (NOVOLOG FLEXPEN U-100 INSULIN SUBCUTANEOUS) Inject 300 Units subcutaneously. - cholecalciferol, vitamin D3, (VITAMIN D3 50 MCG, 2,000 UNIT, GUMMIES) - fluticasone lzgbmvc-hdyckbuevbjz-lw lanterol (TRELEGY ELLIPTA) 200-62.5-25 mcg powder inhaler Inhale 1 Puff as instructed once daily. - aspirin, enteric coated (ASPIRIN, ENTERIC COATED) 81 mg EC tablet Take 81 mg by mouth once daily. - tamsulosin (FLOMAX) 0.4 mg Take 0.4 mg by mouth twice daily. - pantoprazole DR (PROTONIX) 40 mg tablet Take 40 mg by mouth once daily. - albuterol HFA (PROVENTIL HFA, VENTOLIN HFA) 90 mcg/actuation inhaler Inhale 2 Puffs as instructed. - metFORMIN ER (GLUCOPHAGE XR) 750 mg 24 hr tablet Take 750 mg by mouth daily with breakfast. - pravastatin (PRAVACHOL) 80 mg tablet Take 80 mg by mouth once daily. Problem List As Of Date 01/10/2023 Noted Resolved Parkinsonism (HCC) [G20] 03/18/2022 Gait instability [R26.81] 03/18/2022 Leg weakness, bilateral [R29.898] 08/11/2022 Imbalance [R26.89] 08/11/2022 Encounter Status:Closed by KAREN PARRA on 01/13/23 Normal [facility] Basophil percentageOrdered B y: Dr. Gregory on 01-04-2023 Chloride [Moles/Vol] 106 mmol/L 98-107 [facility] Cholesterol [Mass/Vol] 139 mg/dL <200 [facility] Comment on above: <200 mg/dL Desirable 200-240 mg/dL Borderline >240 mg/dL High Risk Glucose [Mass/Vol] 55 mg/dL 74-106 [facility] Potassium [Moles/Vol] 3.9 mmol/L 3.5-5.1 [facility] Sodium [Moles/Vol] 143 mmol/L 136-145 [facility] Triglyceride [Mass/Vol] 133 mg/dL <199 [facility] Comment on above: The drugs N-Acetylcy steine and Metamizole may falsely depress this assay.Serum Triglycerides Reference Interval Normal <150 mg/dL Borderline high 150 - 199 mg/dL High 200 - 499 mg/dL Very High > or = 500 mg/dL Laboratory - Chemistry and C hemistry - challengeOrdered By: Dr. Gregory on 01-04-2023 ALT [Catalytic activity/Vol] 12 U/L 16-61 [facility] CO2 [Moles/Vol] 27.0 mmol/L 21.0-32.0 [facility] Urea nitrogen/Creatinine [Mass ratio] 25.1 mg/mg 10-20 [facility] No Panel InformationOrdered By: Dr. Gregory on 01-04-2023 Estimated GFR (MDRD) Amer 98 mL/min >60 [facility] Comment on above: GFR Calc Estimated GFR (MDRD) Non-Af Amer 81 mL/min >60 [facility] Comment on above: Non- GFR Calc Serum or plasma calcium walt urement (mass/volume)Ordered By: Dr. Gregory on 01-04-2023 Calcium [Mass/Vol] 8.9 mg/dL 8.5-10.1 [facility] Serum or plasma cholesterol in HDL measurement (mass/volume)Ordered By: Dr. Gregory on 01-04-2023 Cholesterol in HDL [Mass/Vol] 44 mg/dL >40 [facility] Comment on above: The drugs N-Acetylcy steine and Metamizole may falsely depress this assay. Reference Range HDL <40 mg/dL Low HDL Cholesterol HDL >or= 60 mg/dL High HDL Cholesterol Serum or plasma cholesterol in VLDL measurement (mass/volume)Ordered By: Dr. Gregory on 01-04-2023 Cholesterol in VLDL [Mass/Vol] 27 mg/dL 5-40 [facility] Serum or plasma creatinine m easurement (mass/volume)Ordered By: Dr. Gregory on 01-04-2023 Creatinine [Mass/Vol] 0.96 mg/dL 0.70-1.30 [facility] Comment on above: The validity of the calculated GFR & GFRAA in patients over 70 years has not been determined. Clinical correlation is essential. Serum or plasma low density lipoprotein (LDL) cholesterol measurement (mass/volume)Ordered By: Dr. Gregory on 01-04-2023 Cholesterol in LDL [Mass/Vol] 68 mg/dL 0-130 [facility] Serum or plasma urea nitroge n measurement (mass/volume)Ordered By: Dr. Gregory on 01-04-2023 Urea nitrogen [Mass/Vol] 24 mg/dL 7-18 [facility] Thin prep Papanicolaou smear with manual screeningOrdered By: Dr. Gregory on 01-04-2023 Thin prep Papanicolaou smear with manual screening 16 U/L 15-37 [facility] Thin prep Papanicolaou smear with manual screening 10 5-15 [facility] Whole blood hemoglobin A1c/t otal hemoglobin ratio (mass fraction)Ordered By: Dr. Gregory on 01-04-2023 HbA1c (Bld) [Mass fraction] 6.3 % 3.8-5.6 [facility] Comment on above: Normal < 5.7 % Predi abetic 5.7 - 6.4 % Diabetic >or= 6.5 % Please note range changes. CNOVon 12-12-2022 CNOV Office Visit (NRMDN) EKVIN GRIFFITH ([id number]) 1945 M Date Time Provider Department 12/12/22 2:00 PM LENI RUIZ During your visit today, we recorded the following information about you: Weight Height 118.3 kg 1.778 m Leni Ruiz APRN.[employer] 12/13/2022 10:48 PM Signed [facility] - FOLLOW UP EVALUATION Ron Cooley MD [address] [facility] [id number] Dear Ron Cooley MD: I had the pleasure of seeing Mr. Griffith for follow-up today. As you know he is a 77 year old right-handed male with a history of tremor since 2019. He is seen with his , Brennen. Subjective Previous Plan-08/04/2022 Visit: - consult for [...] Flowsheet Row OT/PT/Speech Visit from 10/04/2022 in [facility] OT/PT/Speech Visit from 08/25/2022 in [facility] [...] Exercise: Last PT Date: Last OT Date: Date: Exercises Regularly: ALLERGIES Allergen Reactions Reglan [Metoclopram* Mental Status Change psychosis Current Outpa (more content not included)... Normal [facility] 10-10-2022 GUADALUPEN Telephone (NRMDN) KEVIN GRIFFITH ([id number]) 1945 Date Time Provider Department 10/10/22 JAYLYN NIEVES During your visit today, we recorded the following information about you: Seven Harrison RN 10/10/2022 2:45 PM Signed Received voicemail from patient on 10/10/2022 9:09 AM Transcript below: Morning this is Kevin Griffith and my phone number is [phone]. I calling to find out if there's [...] Voicemail left directing patient to a detailed EGT message. Requested reply via MC or RCTO. Provided office number. Message shared with covering provider as KA is OOO. YVONNE Naik, RN October 10, 2022 2:44 PM Allergies As of Date: 10/10/2022 Noted Allergy Reaction REGLAN (METOCLOPRAMIDE) 08/25/2021 1 - Mental Status Change Comments: psychosis Date Reviewed: 09/02/2022 Reviewed by: Aleida Ramirez MD - Fully Assessed Reason for Visit: Patient Update [1234] Cmt: Increased shaking in AM Prescriptions as of 10/10/2022 - DULoxetine (CYMBALTA) 30 mg capsule Take 1 capsule by mouth once daily. - losartan (COZAAR) 50 mg tablet Take 50 mg by mouth once daily. - carbidopa-levodopa (SINEMET 25-100) 25-100 mg per tablet Take 2 tablets by mouth three times daily. - hydrOXYzine HCl (ATARAX) 25 mg tablet Take 25 mg by mouth daily at bedtime. - insulin glargine U-300 conc (TOUJEO MAX U-300 SOLOSTAR) 300 unit/mL (3 mL) inpn Inject 88 Units subcutaneously. - hydroCHLOROthiazide (HYDRODIURIL, ESIDRIX) 12.5 mg tablet Take 12.5 mg by mouth once daily. - insulin aspart (NOVOLOG FLEXPEN U-100 INSULIN SUBCUTANEOUS) Inject 300 Units subcutaneously. - cholecalciferol, vitamin D3, (VITAMIN D3 50 MCG, 2,000 UNIT, GUMMIES) - oxyCODONE-acetaminophen 5-325 mg (PERCOCET) Take 1 tablet by mouth twice daily. - fluticasone kyxfmju-rwdndvivmzfq-kp lanterol (TRELEGY ELLIPTA) 200-62.5-25 mcg powder inhaler Inhale 1 Puff as instructed once daily. - aspirin, enteric coated (ASPIRIN, ENTERIC COATED) 81 mg EC tablet Take 81 mg by mouth once daily. - tamsulosin (FLOMAX) 0.4 mg Take 0.4 mg by mouth twice daily. - pantoprazole DR (PROTONIX) 40 mg tablet Take 40 mg by mouth once daily. - albuterol HFA (PROVENTIL HFA, VENTOLIN HFA) 90 mcg/actuation inhaler Inhale 2 Puffs as instructed. - metFORMIN ER (GLUCOPHAGE XR) 750 mg 24 hr tablet Take 750 mg by mouth daily with breakfast. - pravastatin (PRAVACHOL) 80 mg tablet Take 80 mg by mouth once daily. Problem List As Of Date 10/10/2022 Noted Resolved Parkinsonism (HCC) [G20] 03/18/2022 Gait instability [R26.81] 03/18/2022 Leg weakness, bilateral [R29.898] 08/11/2022 Imbalance [R26.89] 08/11/2022 Encounter Status:Closed by SEVEN HARRISON on 10/10/22 [facility] CNTHERAPYon 10-04-2022 CNTHERAPY OT/PT/Speech Visit (PTMDRG) KEVIN GRIFFITH ([id number]) 1945 M Date Time Provider Department 10/04/22 11:30 AM KORI RYDER Date Time Provider Department Center 10/04/2022 11:30 AM [id number] RYDER [facility] Reason for Visit: Physical Therapy [503] PT Discharge [752] Primary Visit Diagnosis:Parkinsonism, unspecified Parkinsonism type (HCC) [G20] Other Visit Diagnoses:Gait instability [R26.81] Leg weakness, bilateral [R29.898] Imbalance [R26.89] Allergies As of Date: 10/04/2022 Noted Allergy Reaction REGLAN (METOCLOPRAMIDE) 08/25/2021 1 - Mental Status Change Comments: psychosis Date Reviewed: 09/02/2022 Reviewed by: Aleida Ramirez MD - Fully Assessed Prescriptions as of 02/15/2023 - finasteride (PROSCAR) 5 mg tablet - sertraline (ZOLOFT) 50 mg tablet - OXYGEN-AIR DELIVERY SYSTEMS MISC Inhale as instructed. - FREESTYLE CALIXTO 2 SENSOR kit use to TEST BLOOD SUGAR as directed CHANGE EVERY 14 DAYS - potassium chloride ER (KLOR-CON M20) 20 mEq tablet once daily. - SURE COMFORT PEN NEEDLE 31 gauge x 5/16 - carbidopa-levodopa (SINEMET 25-100) 25-100 mg per tablet Take 2 tablets by mouth three times daily. - insulin glargine U-300 conc (TOUJEO MAX U-300 SOLOSTAR) 300 unit/mL (3 mL) inpn Inject 88 Units subcutaneously. - hydroCHLOROthiazide (HYDRODIURIL, ESIDRIX) 12.5 mg tablet Take 12.5 mg by mouth once daily. - insulin aspart (NOVOLOG FLEXPEN U-100 INSULIN SUBCUTANEOUS) Inject 300 Units subcutaneously. - cholecalciferol, vitamin D3, (VITAMIN D3 50 MCG, 2,000 UNIT, GUMMIES) - fluticasone vkpoyst-rncnnkmvzpbs-wo lanterol (TRELEGY ELLIPTA) 200-62.5-25 mcg powder inhaler Inhale 1 Puff as instructed once daily. - aspirin, enteric coated (ASPIRIN, ENTERIC COATED) 81 mg EC tablet Take 81 mg by mouth once daily. - tamsulosin (FLOMAX) 0.4 mg Take 0.4 mg by mouth twice daily. - pantoprazole DR (PROTONIX) 40 mg tablet Take 40 mg by mouth once daily. - albuterol HFA (PROVENTIL HFA, VENTOLIN HFA) 90 mcg/actuation inhaler Inhale 2 Puffs as instructed. - metFORMIN ER (GLUCOPHAGE XR) 750 mg 24 hr tablet Take 750 mg by mouth daily with breakfast. - pravastatin (PRAVACHOL) 80 mg tablet Take 80 mg by mouth once daily. Normal [facility] Basophil percentageOrdered B y: Dr. Gregory on 09-16-2022 Chloride [Moles/Vol] 105 mmol/L 98-107 [facility] Glucose [Mass/Vol] 142 mg/dL 74-106 [facility] Comment on above: Fasting Glucose resu lt greater than or equal to 126 mg/dL suggests DIABETES MELLITUS per A.D.A. criteria. Potassium [Moles/Vol] 3.8 mmol/L 3.5-5.1 [facility] Sodium [Moles/Vol] 137 mmol/L 136-145 [facility] Laboratory - Chemistry and C hemistry - challengeOrdered By: Dr. Gregory on 09-16-2022 ALT [Catalytic activity/Vol] 13 U/L 16-61 [facility] CO2 [Moles/Vol] 24.0 mmol/L 21.0-32.0 [facility] Urea nitrogen/Creatinine [Mass ratio] 24.0 mg/mg 10-20 [facility] No Panel InformationOrdered By: Dr. Gregory on 09-16-2022 Estimated GFR (MDRD) Amer 89 mL/min >60 [facility] Comment on above: GFR Calc Estimated GFR (MDRD) Non-Af Amer 73 mL/min >60 [facility] Comment on above: Non- GFR Calc Thyroid Stimulating Hormone (TSH) 1.71 uIU/mL 0.358-3.74 [facility] Serum or plasma calcium walt urement (mass/volume)Ordered By: Dr. Gregory on 09-16-2022 Calcium [Mass/Vol] 9.4 mg/dL 8.5-10.1 [facility] Serum or plasma creatinine m easurement (mass/volume)Ordered By: Dr. Gregory on 09-16-2022 Creatinine [Mass/Vol] 1.04 mg/dL 0.70-1.30 [facility] Comment on above: The validity of the calculated GFR & GFRAA in patients over 70 years has not been determined. Clinical correlation is essential. Serum or plasma urea nitroge n measurement (mass/volume)Ordered By: Dr. Gregory on 09-16-2022 Urea nitrogen [Mass/Vol] 25 mg/dL 7-18 [facility] Thin prep Papanicolaou smear with manual screeningOrdered By: Dr. Gregory on 09-16-2022 Thin prep Papanicolaou smear with manual screening 13 U/L 15-37 [facility] Thin prep Papanicolaou smear with manual screening 8 5-15 [facility] Whole blood hemoglobin A1c/t otal hemoglobin ratio (mass fraction)Ordered By: Dr. Gregory on 09-16-2022 HbA1c (Bld) [Mass fraction] 6.5 % 3.8-5.6 [facility] Comment on above: Normal < 5.7 % Predi abetic 5.7 - 6.4 % Diabetic >or= 6.5 % Please note range changes. CNTHERAPYon 09-15-2022 CNTHERAPY OT/PT/Speech Visit (PTMDRG) KEVIN GRIFFITH ([id number]) 1945 M Date Time Provider Department 09/15/22 4:00 PM KORI RYDER Date Time Provider Department Center 09/15/2022 4:00 PM [id number] RYDER [facility] Reason for Visit: Physical Therapy [503] Primary Visit Diagnosis:Parkinsonism, unspecified Parkinsonism type (HCC) [G20] Other Visit Diagnoses:Gait instability [R26.81] Leg weakness, bilateral [R29.898] Imbalance [R26.89] Allergies As of Date: 09/15/2022 Noted Allergy Reaction REGLAN (METOCLOPRAMIDE) 08/25/2021 1 - Mental Status Change Comments: psychosis Date Reviewed: 09/02/2022 Reviewed by: Aleida Ramirez MD - Fully Assessed Prescriptions as of 09/15/2022 - DULoxetine (CYMBALTA) 30 mg capsule Take 1 capsule by mouth once daily. - losartan (COZAAR) 50 mg tablet Take 50 mg by mouth once daily. - carbidopa-levodopa (SINEMET 25-100) 25-100 mg per tablet Take 2 tablets by mouth three times daily. - hydrOXYzine HCl (ATARAX) 25 mg tablet Take 25 mg by mouth daily at bedtime. - insulin glargine U-300 conc (TOUJEO MAX U-300 SOLOSTAR) 300 unit/mL (3 mL) inpn Inject 88 Units subcutaneously. - hydroCHLOROthiazide (HYDRODIURIL, ESIDRIX) 12.5 mg tablet Take 12.5 mg by mouth once daily. - insulin aspart (NOVOLOG FLEXPEN U-100 INSULIN SUBCUTANEOUS) Inject 300 Units subcutaneously. - cholecalciferol, vitamin D3, (VITAMIN D3 50 MCG, 2,000 UNIT, GUMMIES) - oxyCODONE-acetaminophen 5-325 mg (PERCOCET) Take 1 tablet by mouth twice daily. - fluticasone zwswhhz-hzxyahusfetx-iy lanterol (TRELEGY ELLIPTA) 200-62.5-25 mcg powder inhaler Inhale 1 Puff as instructed once daily. - aspirin, enteric coated (ASPIRIN, ENTERIC COATED) 81 mg EC tablet Take 81 mg by mouth once daily. - tamsulosin (FLOMAX) 0.4 mg Take 0.4 mg by mouth twice daily. - pantoprazole DR (PROTONIX) 40 mg tablet Take 40 mg by mouth once daily. - albuterol HFA (PROVENTIL HFA, VENTOLIN HFA) 90 mcg/actuation inhaler Inhale 2 Puffs as instructed. - metFORMIN ER (GLUCOPHAGE XR) 750 mg 24 hr tablet Take 750 mg by mouth daily with breakfast. - pravastatin (PRAVACHOL) 80 mg tablet Take 80 mg by mouth once daily. [facility] 09-12-2022 CNPN Telephone (NREUS2) KEVIN GRIFFITH ([id number]) 1945 M Date Time Provider Department 09/12/22 JAYLYN NIEVES [id number] During your visit today, we recorded the following information about you: Lena Gallo [facility] 09/12/2022 2:37 PM Signed NI PHONE NAME OF CALLER: Brennen RELATIONSHIP TO PATIENT: spouse PATIENT ID'D BY NAME/: yes REASON FOR CALL: States that his PD symptoms are worsening and she would like to speak with Stefania. CALLBACK #: [phone] OK TO LEAVE MESSAGE: ok only on this number - do not leave at home number LAST FUV: 08/04/22 with CAR Harrison RN 09/13/2022 12:32 PM Signed Returned call to Brennen. No reply, left detailed message requesting RCTO. Provided office number for call back. Awaiting reply. YVONNE Naik, RN September 13, 2022 12:31 PM Seven Harrison RN 09/14/2022 2:09 PM Signed returned call. Last week he walked right [...] of the family's care. Update shared with KA. YVONNE Naik, RN September 14, 2022 1:54 PM Jaylyn Nieves MD 09/14/2022 2:34 PM Signed Agree that the knee needs to get evaluated. Having PT evaluate for an injury is not appropriate, that's not what they do. Best intervention for worsening balance is PT. He had felt lightheaded at visit but negative orthostatics, continue to encourage fluids. For the mood we could increase Cymbalta to 30 mg if he's agreeable. Seven Harrison RN 09/14/2022 2:42 PM Signed Called payton Landon and shared update. She will confer with her mother and father and update the office as needed. YVONNE Naik, RN September 14, 2022 2:42 PM Seven Harrison RN 09/15/2022 4:41 PM Signed Patient will be seen by another physician in the PCP practice to evaluate him for the falls. shared that they are onboard with increasing the Cymbalta. The patient also had a panic attack several weeks ago so that supports the increase in the Cymbalta. New order pended to this encounter. YVONNE Naik, IMSAEL September 15, 2022 4:40 PM Jaylyn Nieves MD 09/15/2022 4:48 PM Signed The following approved medication requests have been transmitted electronically. Requested Prescriptions Signed Prescriptions Disp Refills DULoxetine (CYMBALTA) 30 mg capsule 90 capsule 3 Sig: Take 1 capsule by mouth once daily. Authorizing Provider: JAYLYN NIEVES MD Meenakshi Gapa, RN 09/16/2022 8:49 AM Signed Called and left voicemail that an updated RX had been sent for the Cymbalta. Provided office number for RCTO and option to message via EGT. Seven Harrison, MSN, RN September 16, 2022 8:48 AM Allergies As of Date: 09/12/2022 Noted Allergy Reaction REGLAN (METOCLOPRAMIDE) 08/25/2021 1 - Mental Status Change Comments: psychosis Date Reviewed: 09/02/2022 Reviewed by: Aleida Ramirez MD - Fully Assessed Reason for Visit: Other [Other] Cmt: PD Symptoms Worsening Prescriptions as of 12/14/2022 - finasteride (PROSCAR) 5 mg tablet - sertraline (ZOLOFT) 50 mg tablet - OXYGEN-AIR DELIVERY SYSTEMS MISC Inhale as instructed. - Yesmywine CALIXTO 2 SENSOR kit use to TEST BLOOD SUGAR as directed CHANGE EVERY 14 DAYS - potassium chloride ER (KLOR-CON M20) 20 mEq tablet once daily. - SURE COMFORT PEN NEEDLE 31 gauge x /16 - carbidopa-levodopa (SINEMET 25-100) 25-100 mg per tablet Take 2 tablets by mouth three times daily. - insulin glargine U-300 conc (TOUJEO MAX U-300 SOLOSTAR) 300 unit/mL (3 mL) inpn Inject 88 Units subcutaneously. - hydroCHLOROthiazide (HYDRODIURIL, ESIDRIX) 12.5 mg tablet (more content not included)... Normal [facility] CNTHERAPYon 08-25-2022 CNTHERAPY OT/PT/Speech Visit (PTMDRG) KEVIN GRIFFITH ([id number]) 1945 M Date Time Provider Department 08/25/22 5:30 PM KORI RYDER Date Time Provider Department Center 08/25/2022 5:30 PM [id number] RYDER [facility] Reason for Visit: Physical Therapy [503] Primary Visit Diagnosis:Parkinsonism, unspecified Parkinsonism type (HCC) [G20] Other Visit Diagnoses:Gait instability [R26.81] Leg weakness, bilateral [R29.898] Imbalance [R26.89] Allergies As of Date: 08/25/2022 Noted Allergy Reaction REGLAN (METOCLOPRAMIDE) 08/25/2021 1 - Mental Status Change Comments: psychosis Date Reviewed: 08/04/2022 Reviewed by: Jaylyn Nieves MD - Fully Assessed Prescriptions as of 08/25/2022 - losartan (COZAAR) 50 mg tablet Take 50 mg by mouth once daily. - carbidopa-levodopa (SINEMET 25-100) 25-100 mg per tablet Take 2 tablets by mouth three times daily. - DULoxetine (CYMBALTA) 20 mg capsule Take 1 capsule by mouth once daily. - hydrOXYzine HCl (ATARAX) 25 mg tablet Take 25 mg by mouth daily at bedtime. - insulin glargine U-300 conc (TOUJEO MAX U-300 SOLOSTAR) 300 unit/mL (3 mL) inpn Inject 88 Units subcutaneously. - hydroCHLOROthiazide (HYDRODIURIL, ESIDRIX) 12.5 mg tablet Take 12.5 mg by mouth once daily. - insulin aspart (NOVOLOG FLEXPEN U-100 INSULIN SUBCUTANEOUS) Inject 300 Units subcutaneously. - cholecalciferol, vitamin D3, (VITAMIN D3 50 MCG, 2,000 UNIT, GUMMIES) - oxyCODONE-acetaminophen 5-325 mg (PERCOCET) Take 1 tablet by mouth twice daily. - fluticasone dnfbixd-rnthpitiyojo-zc lanterol (TRELEGY ELLIPTA) 200-62.5-25 mcg powder inhaler Inhale 1 Puff as instructed once daily. - aspirin, enteric coated (ASPIRIN, ENTERIC COATED) 81 mg EC tablet Take 81 mg by mouth once daily. - tamsulosin (FLOMAX) 0.4 mg Take 0.4 mg by mouth twice daily. - pantoprazole DR (PROTONIX) 40 mg tablet Take 40 mg by mouth once daily. - albuterol HFA (PROVENTIL HFA, VENTOLIN HFA) 90 mcg/actuation inhaler Inhale 2 Puffs as instructed. - metFORMIN ER (GLUCOPHAGE XR) 750 mg 24 hr tablet Take 750 mg by mouth daily with breakfast. - pravastatin (PRAVACHOL) 80 mg tablet Take 80 mg by mouth once daily. [facility] CNTHERAPYon 08-11-2022 CNTHERAPY OT/PT/Speech Visit (PTMDRG) KEVIN GRIFFITH ([id number]) 1945 M Date Time Provider Department 08/11/22 1:00 PM KORI RYDER Date Time Provider Department Center 08/11/2022 1:00 PM [id number] RYDER [facility] Reason for Visit: PT Eval [747] Patient Education [91] Primary Visit Diagnosis:Leg weakness, bilateral [R29.898] Other Visit Diagnoses:Parkinsonism, unspecified Parkinsonism type (HCC) [G20] Imbalance [R26.89] Allergies As of Date: 08/11/2022 Noted Allergy Reaction REGLAN (METOCLOPRAMIDE) 08/25/2021 1 - Mental Status Change Comments: psychosis Date Reviewed: 08/04/2022 Reviewed by: Jaylyn Nieves MD - Fully Assessed Prescriptions as of 08/11/2022 - losartan (COZAAR) 50 mg tablet Take 50 mg by mouth once daily. - carbidopa-levodopa (SINEMET 25-100) 25-100 mg per tablet Take 2 tablets by mouth three times daily. - DULoxetine (CYMBALTA) 20 mg capsule Take 1 capsule by mouth once daily. - hydrOXYzine HCl (ATARAX) 25 mg tablet Take 25 mg by mouth daily at bedtime. - insulin glargine U-300 conc (TOUJEO MAX U-300 SOLOSTAR) 300 unit/mL (3 mL) inpn Inject 88 Units subcutaneously. - hydroCHLOROthiazide (HYDRODIURIL, ESIDRIX) 12.5 mg tablet Take 12.5 mg by mouth once daily. - insulin aspart (NOVOLOG FLEXPEN U-100 INSULIN SUBCUTANEOUS) Inject 300 Units subcutaneously. - cholecalciferol, vitamin D3, (VITAMIN D3 50 MCG, 2,000 UNIT, GUMMIES) - oxyCODONE-acetaminophen 5-325 mg (PERCOCET) Take 1 tablet by mouth twice daily. - fluticasone yupvdfb-ffiuecxrxfrk-ji lanterol (TRELEGY ELLIPTA) 200-62.5-25 mcg powder inhaler Inhale 1 Puff as instructed once daily. - aspirin, enteric coated (ASPIRIN, ENTERIC COATED) 81 mg EC tablet Take 81 mg by mouth once daily. - tamsulosin (FLOMAX) 0.4 mg Take 0.4 mg by mouth twice daily. - pantoprazole DR (PROTONIX) 40 mg tablet Take 40 mg by mouth once daily. - albuterol HFA (PROVENTIL HFA, VENTOLIN HFA) 90 mcg/actuation inhaler Inhale 2 Puffs as instructed. - metFORMIN ER (GLUCOPHAGE XR) 750 mg 24 hr tablet Take 750 mg by mouth daily with breakfast. - pravastatin (PRAVACHOL) 80 mg tablet Take 80 mg by mouth once daily. [facility] 08-04-2022 [facility] Office Visit (NRMDN) KEVIN GRIFFITH ([id number]) 1945 M Date Time Provider Department 08/04/22 2:00 PM JAYLYN NIEVES During your visit today, we recorded the following information about you: Pulse Respiration Blood pressure 107/minute 16/minute 109/86 Jaylyn Nieves MD 08/04/2022 5:35 PM Signed [facility] - FOLLOW UP EVALUATION Ron Cooley MD [address] [facility] [id number] I had the pleasure of seeing Mr. [...] 1 tablet by mouth twice daily. fluticasone odmqktu-ttzhrsaeklvg-bo lanterol (TRELEGY ELLIPTA) 200-62.5-25 mcg powder inhaler Inhale 1 Puff as instructed once daily. aspirin, enteric coated (ASPIRIN, ENTERIC COATED) 81 mg EC tablet Take 81 mg by mouth once daily. tamsulosin (FLOMAX) 0.4 mg Take 0.4 m (more content not included)... Normal [facility] No Panel Informationon 08-01 Prostate Specific Antigen Screen 5.11 ng/mL 0.00-4.00 [facility] Work Phone: Comment on above: This test was perfor med using the TPSA assay method for the[employer] chemistry system. Values obtained with differentassay methods cannot be used interchangably.When changing PSA assays in the course of monitoring apatient, additional sequential testing should be carriedout to confirm baseline values. Anabelle 07-21-2022 JUMA Telephone (NIKOS) KEVIN GRIFFITH ([id number]) 1945 M Date Time Provider Department 07/21/22 JAYLYN NIEVES During your visit today, we recorded the following information about you: Seven Harrison RN 07/21/2022 1:09 PM Signed Received voicemail from patient's on [facility] 07/21/2022 10:52 AM Transcript below: Kaila my name is Brennen Griffith. My 's name is Kevin Griffith. He is a patient of Dr. Gordillo. My phone number is [phone]. I'm calling to speak to somebody regarding [...] sleep quality. Updates shared with MD CAR AND JANY, PIPE STRAIGHTENER. If any guidance is suggested, RN will contact with feedback. Seven Harrison, YVONNE, RN July 21, 2022 12:42 PM Allergies As of Date: 07/21/2022 Noted Allergy Reaction REGLAN (METOCLOPRAMIDE) 08/25/2021 1 - Mental Status Change Comments: psychosis Date Reviewed: 03/29/2022 Reviewed by: Jaylyn Nieves MD - Fully Assessed Reason for Visit: Appointment [186] Cmt: Earlier appointment request d/t worsening symptoms Prescriptions as of 07/21/2022 - carbidopa-levodopa (SINEMET 25-100) 25-100 mg per tablet Take 2 tablets by mouth three times daily. - DULoxetine (CYMBALTA) 20 mg capsule Take 1 capsule by mouth once daily. - hydrOXYzine HCl (ATARAX) 25 mg [...] Take 80 mg by mouth once daily. Problem List As Of Date 07/21/2022 Noted Resolved Parkinsonism (HCC) [G20] 03/18/2022 Gait instability [R26.81] 03/18/2022 Encounter Status:Closed by SEVEN HARRISON on 07/21/22 Normal [facility] No Panel Informationon 06-21 Urine Microalbumin/Creatinine Ratio 12.4 mg/g CRE <30 [facility] Work Phone: Thin prep Papanicolaou smear with manual screeningon 06-21-2022 Thin prep Papanicolaou smear with manual screening 17.8 mg/L NO RANGE EST. [facility] Work Phone: Urine creatinine measurement (mass/volume)on 06-21-2022 Creatinine (U) [Mass/Vol] 144.00 mg/dL NO RANGE EST. [facility] Work Phone: Basophil percentageon 2021 Chloride [Moles/Vol] 102 mmol/L 98-107 [facility] Work Phone: Cholesterol [Mass/Vol] 140 mg/dL <200 [facility] Work Phone: Comment on above: <200 mg/dL Desirable 200-240 mg/dL Borderline >240 mg/dL High Risk Glucose [Mass/Vol] 224 mg/dL 74-106 [facility] Work Phone: Comment on above: Glucose result great er than or equal to 200 mg/dLsuggests DIABETES MELLITUS per A.D.A. criteria. Potassium [Moles/Vol] 3.9 mmol/L 3.5-5.1 [facility] Work Phone: Sodium [Moles/Vol] 137 mmol/L 136-145 [facility] Work Phone: Triglyceride [Mass/Vol] 161 mg/dL <199 [facility] Work Phone: Comment on above: The drugs N-Acetylcy steine and Metamizole may falsely depress this assay.Serum Triglycerides Reference Interval Normal <150 mg/dL Borderline high 150 - 199 mg/dL High 200 - 499 mg/dL Very High > or = 500 mg/dL Laboratory - Chemistry and C hemistry - challengeon 06-20-2022 ALT [Catalytic activity/Vol] 21 U/L 16-61 [facility] Work Phone: CO2 [Moles/Vol] 29.0 mmol/L 21.0-32.0 [facility] Work Phone: Urea nitrogen/Creatinine [Mass ratio] 21.7 mg/mg 10-20 [facility] Work Phone: No Panel Informationon 06-20 Estimated GFR (MDRD) Amer 75 mL/min >60 [facility] Work Phone: Comment on above: GFR Calc Estimated GFR (MDRD) Non-Af Amer 62 mL/min >60 [facility] Work Phone: Comment on above: Non- GFR Calc Serum or plasma calcium walt urement (mass/volume)on 06-20-2022 Calcium [Mass/Vol] 8.8 mg/dL 8.5-10.1 [facility] Work Phone: Serum or plasma cholesterol in HDL measurement (mass/volume)on 06-20-2022 Cholesterol in HDL [Mass/Vol] 47 mg/dL >40 [facility] Work Phone: Comment on above: The drugs N-Acetylcy steine and Metamizole may falsely depress this assay. Reference Range HDL <40 mg/dL Low HDL Cholesterol HDL >or= 60 mg/dL High HDL Cholesterol Serum or plasma cholesterol in VLDL measurement (mass/volume)on 06-20-2022 Cholesterol in VLDL [Mass/Vol] 32 mg/dL 5-40 [facility] Work Phone: Serum or plasma creatinine m easurement (mass/volume)on 06-20-2022 Creatinine [Mass/Vol] 1.20 mg/dL 0.70-1.30 [facility] Work Phone: Comment on above: The validity of the calculated GFR & GFRAA in patients over 70 years has not been determined. Clinical correlation is essential. Serum or plasma low density lipoprotein (LDL) cholesterol measurement (mass/volume)on 06-20-2022 Cholesterol in LDL [Mass/Vol] 61 mg/dL 0-130 [facility] Work Phone: Serum or plasma urea nitroge n measurement (mass/volume)on 06-20-2022 Urea nitrogen [Mass/Vol] 26 mg/dL 7-18 [facility] Work Phone: Thin prep Papanicolaou smear with manual screeningon 06-20-2022 Thin prep Papanicolaou smear with manual screening 17 U/L 15-37 [facility] Work Phone: Thin prep Papanicolaou smear with manual screening 6 5-15 [facility] Work Phone: Whole blood hemoglobin A1c/t otal hemoglobin ratio (mass fraction)on 06-20-2022 HbA1c (Bld) [Mass fraction] 6.7 % 3.8-5.6 [facility] Work Phone: Comment on above: Normal < 5.7 % Predi abetic 5.7 - 6.4 % Diabetic >or= 6.5 % Please note range changes. Absolute lymphocyte counton 04-25-2022 Lymphocytes Auto (Unsp spec) [#/Vol] 3.24 10*3/uL 0.83-4.51 [facility] Work Phone: Basophil percentageon 2021 Basophil percentage 0-5 SEEN /hpf 0-5 [facility] Work Phone: Basophils/100 WBC (Bld) 1.2 % 0-1 [facility] Work Phone: Bilirubin [Mass/Vol] 0.70 mg/dL 0.20-1.00 [facility] Work Phone: Comment on above: For patients on eltr ombopag therapy, use of Dimension [place] TBIL is not recommended. Chloride [Moles/Vol] 103 mmol/L 98-107 [facility] Work Phone: Cholesterol [Mass/Vol] 138 mg/dL <200 [facility] Work Phone: Comment on above: <200 mg/dL Desirable 200-240 mg/dL Borderline >240 mg/dL High Risk Eosinophils/100 WBC (Bld) 2.6 % 0-5 [facility] Work Phone: Glucose [Mass/Vol] 168 mg/dL 74-106 [facility] Work Phone: Comment on above: Fasting Glucose resu lt greater than or equal to 126 mg/dL suggests DIABETES MELLITUS per A.D.A. criteria. Neutrophils (Bld) [#/Vol] 4.2 10*3/uL 2.0-7.7 [facility] Work Phone: Neutrophils/100 WBC (Bld) 46.5 % 47-70 [facility] Work Phone: Potassium [Moles/Vol] 3.9 mmol/L 3.5-5.1 [facility] Work Phone: Protein [Mass/Vol] 7.3 g/dL 6.4-8.2 [facility] Work Phone: Sodium [Moles/Vol] 137 mmol/L 136-145 [facility] Work Phone: Triglyceride [Mass/Vol] 193 mg/dL <199 [facility] Work Phone: Comment on above: The drugs N-Acetylcy steine and Metamizole may falsely depress this assay.Serum Triglycerides Reference Interval Normal <150 mg/dL Borderline high 150 - 199 mg/dL High 200 - 499 mg/dL Very High > or = 500 mg/dL WBC (Bld) [#/Vol] 8.9 10*3/uL 4.4-11.0 [facility] Work Phone: Bilirubin Test strip Ql (U)o n 04-25-2022 Bilirubin Ql (U) Negative Negative [facility] Work Phone: Blood erythrocytes count (nu mber/volume)on 04-25-2022 RBC (Bld) [#/Vol] 4.66 10*6/uL 4.6-6.2 [facility] Work Phone: Blood hemoglobin measurement (mass/volume)on 04-25-2022 Hemoglobin (Bld) [Mass/Vol] 14.6 g/dL 13.0-16.5 [facility] Work Phone: Blood lymphocytes/100 leukoc yteson 04-25-2022 Lymphocytes/100 WBC (Bld) 36.4 % 19-41 [facility] Work Phone: Blood monocytes/100 leukocyt eson 04-25-2022 Monocytes/100 WBC (Bld) 12.6 % 0-10 [facility] Work Phone: Blood platelet mean volumeon 04-25-2022 Platelet mean volume (Bld) [Entitic vol] 10.1 fL 6.2-12.0 [facility] Work Phone: Determination of erythrocyte mean corpuscular volume (MCV)on 04-25-2022 MCV (RBC) [Entitic vol] 93.3 fL 80-94 [facility] Work Phone: Hematocrit Auto (Bld) [Volum e fraction]on 04-25-2022 Hematocrit (Bld) [Volume fraction] 43.5 % 40-54 [facility] Work Phone: Ketones Test strip Ql (U)on 04-25-2022 Ketones Ql (U) 5 mg/dl Negative [facility] Work Phone: Laboratory - Chemistry and C hemistry - challengeon 04-25-2022 ALP [Catalytic activity/Vol] 62 U/L 45-117 [facility] Work Phone: ALT [Catalytic activity/Vol] 25 U/L 16-61 [facility] Work Phone: CO2 [Moles/Vol] 25.0 mmol/L 21.0-32.0 [facility] Work Phone: Cobalamin (Vitamin B12) [Mass/Vol] 1930 pg/mL 211-911 [facility] Work Phone: Globulin (S) [Mass/Vol] 3.6 g/dL 2.2-4.2 [facility] Work Phone: Urea nitrogen/Creatinine [Mass ratio] 19.8 mg/mg 10-20 [facility] Work Phone: Laboratory - Hematology and Cell countson 04-25-2022 Erythrocyte distribution width (RBC) [Entitic vol] 46.3 fL 35.1-43.9 [facility] Work Phone: Erythrocyte distribution width (RBC) [Ratio] 13.6 % 11.6-14.6 [facility] Work Phone: Immature granulocytes/100 WBC (Bld) 0.700 % 0.0-0.9 [facility] Work Phone: Comment on above: IG% - Immature Granu locytes (promyelocytes, myelocytes and metamyelocytes) > 1% indicates that a LEFT SHIFT is Present. MCH (RBC) [Entitic mass] 31.3 pg 27.0-32.0 [facility] Work Phone: Nucleated RBC/100 WBC (Bld) [Ratio] 0 % 0-5 [facility] Work Phone: MCHC Auto (RBC) [Mass/Vol]on 04-25-2022 MCHC (RBC) [Mass/Vol] 33.6 g/dL 32-36 [facility] Work Phone: Mucus LM Ql (Urine sed)on Mucus Ql (Urine sed) 0 SEEN /hpf [facility] Work Phone: Nitrite Test strip Ql (U)on 04-25-2022 Nitrite Ql (U) Negative Negative [facility] Work Phone: No Panel Informationon 04-25 Estimated GFR (MDRD) Amer 87 mL/min >60 [facility] Work Phone: Comment on above: GFR Calc Estimated GFR (MDRD) Non-Af Amer 72 mL/min >60 [facility] Work Phone: Comment on above: Non- GFR Calc Thyroid Stimulating Hormone (TSH) 2.14 uIU/mL 0.358-3.74 [facility] Work Phone: Vitamin D 25-Hydroxy 59.3 ng/mL [facility] Work Phone: Comment on above: Vitamin D 25(OH) Sta tus Range Deficiency <20 ng/mL (50nmol/L) Insufficiency 20 - 30 ng/mL (50 - 75 nmol/L) Sufficiency 30 - 100 ng/mL (75 - 250 nmol/L) Toxicity >100 ng/mL (>250 nmol/L) Platelets bldon 04-25-2022 Platelets (Bld) [#/Vol] 264 10*3/uL 150-450 [facility] Work Phone: Protein Test strip Ql (U)on 04-25-2022 Protein Ql (U) Negative Negative [facility] Work Phone: Serum or plasma albumin walt urement (mass/volume)on 04-25-2022 Albumin [Mass/Vol] 3.7 g/dL 3.2-5.0 [facility] Work Phone: Serum or plasma albumin/glob ulin mass ratioon 04-25-2022 Albumin/Globulin [Mass ratio] 1.0 {ratio} 0.9-2.4 [facility] Work Phone: Serum or plasma calcium walt urement (mass/volume)on 04-25-2022 Calcium [Mass/Vol] 9.1 mg/dL 8.5-10.1 [facility] Work Phone: Serum or plasma cholesterol in HDL measurement (mass/volume)on 04-25-2022 Cholesterol in HDL [Mass/Vol] 43 mg/dL >40 [facility] Work Phone: Comment on above: The drugs N-Acetylcy steine and Metamizole may falsely depress this assay. Reference Range HDL <40 mg/dL Low HDL Cholesterol HDL >or= 60 mg/dL High HDL Cholesterol Serum or plasma cholesterol in VLDL measurement (mass/volume)on 04-25-2022 Cholesterol in VLDL [Mass/Vol] 39 mg/dL 5-40 [facility] Work Phone: Serum or plasma creatinine m easurement (mass/volume)on 04-25-2022 Creatinine [Mass/Vol] 1.06 mg/dL 0.70-1.30 [facility] Work Phone: Comment on above: The validity of the calculated GFR & GFRAA in patients over 70 years has not been determined. Clinical correlation is essential. Serum or plasma folate measu rement (mass/volume)on 04-25-2022 Folate [Mass/Vol] 13.80 ng/mL 3.1-55.4 [facility] Work Phone: Comment on above: Slight Hemolysis, Re sult may be falsely increased. Serum or plasma low density lipoprotein (LDL) cholesterol measurement (mass/volume)on 04-25-2022 Cholesterol in LDL [Mass/Vol] 56 mg/dL 0-130 [facility] Work Phone: Serum or plasma urea nitroge n measurement (mass/volume)on 04-25-2022 Urea nitrogen [Mass/Vol] 21 mg/dL 7-18 [facility] Work Phone: Squamous epithelial cells de tection in urine sediment by light microscopyon 04-25-2022 Epithelial cells.squamous LM Ql (Urine sed) 0 SEEN /hpf 0-5 [facility] Work Phone: Thin prep Papanicolaou smear with manual screeningon 04-25-2022 Thin prep Papanicolaou smear with manual screening 17 U/L 15-37 [facility] Work Phone: Thin prep Papanicolaou smear with manual screening 9 5-15 [facility] Work Phone: Urine blood detectionon RBC Ql (U) Negative Negative [facility] Work Phone: RBC Ql (U) 0-5 SEEN /hpf 0-5 [facility] Work Phone: Urine clarityon 04-25-2022 Clarity (U) Clear Clear [facility] Work Phone: Urine color determinationon 04-25-2022 Color (U) Yellow Yellow [facility] Work Phone: Urine glucose detectionon Glucose Ql (U) Normal mg/dl Normal [facility] Work Phone: Urine leukocyte esterase det ection by dipstickon 04-25-2022 Leukocyte esterase Test strip Ql (U) Negative Negative [facility] Work Phone: Urine pHon 04-25-2022 pH (U) 6.0 [pH] 5.0 - 8.0 [facility] Work Phone: Urine sediment bacteria coun t by microscopy (number/high power field)on 04-25-2022 Bacteria LM.HPF (Urine sed) [#/Area] RARE /hpf None Seen [facility] Work Phone: Urine specific gravity measu rementon 04-25-2022 Specific gravity (U) [Rel density] 1.020 1.002-1.030 [facility] Work Phone: Urobilinogen Auto test strip Ql (U)on 04-25-2022 Urobilinogen Ql (U) 4 mg/dl Normal [facility] Work Phone: Whole blood hemoglobin A1c/t otal hemoglobin ratio (mass fraction)on 04-25-2022 HbA1c (Bld) [Mass fraction] 6.6 % 3.8-5.6 [facility] Work Phone: Comment on above: Normal < 5.7 % Predi abetic 5.7 - 6.4 % Diabetic >or= 6.5 % Please note range changes. Laboratory - Drug toxicology on 04-07-2022 Amphetamines Ql (U) Negative <1000 ng/mL [facility] Work Phone: Benzodiazepines Ql (U) Negative < 200 ng/mL [facility] Work Phone: Cannabinoids Screen Ql (U) Negative < 50 ng/mL [facility] Work Phone: Cocaine Ql (U) Negative < 300 ng/mL [facility] Work Phone: Opiates Ql (U) Negative < 300 ng/mL [facility] Work Phone: No Panel Informationon 04-07 MDMA (Ecstasy) Screen Negative < 500 ng/mL [facility] Work Phone: Miscellaneous Test See comment [facility] Work Phone: Comment on above: [id number] 6+OXYCODONE-B UND (ng/mL) DRUG RESULT SCREEN CUTOFF____ Amphetamines,Urine Negative ng/mL 1000 Amphetamine test includes Amphetamine and Methamphetamine.Barbiturates Negative ng/mL 200Benzodiazepines Negative ng/mL 200Cannabinoid Negative ng/mL 20Cocaine (Metab) Negative ng/mL 300Opiates Negative ng/mL 300 Opiates test includes Codeine, Morphine, Hydromorphone, Hydrocodone. Oxycodone/Oxymorphone,Urine Positive ng/mL 300 Test includes Oxydodone and Oxymorphone. Oxycodone PositiveOxycodone Conf,MS,UR 666 ng/mL 300 Oxymorphone Negative 300 TESTING PERFORMED AT [facility]. ORIGINAL REPORT ON FILE IN LAB CONTAINS ADDITIONAL TEST SITE INFORMATION. Urine Barbiturates Screen Negative < 200 ng/m L [facility] Work Phone: Urine Drug Screen Comment [facility] Work Phone: Comment on above: CONFIRMATORY TESTING FOR ALL POSITIVE URINE DRUG SCREENRESULTS WILL ONLY BE SENT OUT UPON PHYSICIAN ORDER. VISTA Urine Drug Screen methods provide only preliminaryanalytical test results. A more specific alternate chemicalmethod must be used in order to obtain a confirmedanalytical result. Gas chromatography/mass spectrometery(GC/MS) is the preferred confirmatory method. Clinicalconsideration and professional judgement should be appliedto any drug of abuse test result, particularly whenpreliminary positive results are used. URINE TCA TESTING MUST BE ORDERED SEPARATELY. USE TESTMNEMONIC: UTCA Urine Methadone Screen Negative < 300 ng/mL [facility] Work Phone: Urine phencyclidine (PCP) de tectionon 04-07-2022 Phencyclidine Ql (U) Negative < 25 ng/mL [facility] Work Phone: CNOVon 03-29-2022 CNOV Office Visit (SPEMML ) KEVIN GRIFFITH ([id number]) 1945 M Date Time Provider Department 03/29/22 1:30 PM SAKINA RO During your visit today, we recorded the following information about you: Sakina Ro CCC-LINE MAINTENANCE SUPERVISOR 03/29/2022 3:59 PM Signed Episode Visit Count: 1 Therapist That Will Oversee The Plan Of Care: Andrade Start of Care Date: 03/29/22 Onset Date: 11/20/20 Plan of Care Certification Date: 03/29/22 Patient Identified by Name and Date of : Yes [facility]ECH and [...] position 20-30 minutes following all oral intake LINE MAINTENANCE SUPERVISOR Recommendations: Swallowing Precautions;Discontinue Speech Therapy Results and Recommendations Discussed With: Patient;Physician Prognosis: Good Good: current objective clinical presentation;within-ses tien changes at evaluation;good support system/ coping skills [...] 1 visit PLAN FOR NEXT VISIT: not applicable-evaluation/t reatment/discharge completed Patient demonstrates good understanding of plan [...] swallows;Feed / Eat at a slow rate;Small Bite/Sip;Self-monitorin g;Alternate bites and sips Previous Swallow Study: MBS (pt reports had MBS done at [facility] last year, which pt was told 'he did fine' and no recommendations for follow up ST or diet modifications made) Clinical Swallow [place] Swallow Protocol: Fail Fail: Coughing episodes (x1 throat clear delayed post trial of water) Oral Pharyngeal Swallow Assessment: Within Functional Limits Except Preparatory / Oral Phase: Within Functional Limits Except Mastication: (pt with close attention to mastication-requires extended time) A-P Transit: Suspect impairment Oral Residue: Mildly Impaired Pharyng (more content not included)... Normal [facility] Office Visit (NRMDN) NACHOKEVIN Ríos ([id number]) 1945 M Date Time Provider Department 03/29/22 12:30 PM [facility]ES [facility] During your visit today, we recorded the following information about you: Jaylyn Nieves MD 03/29/2022 7:35 PM Signed [facility] Jaylyn Nieves [address] [facility] [address] [facility] [address] Ron Cooley MD [address] [facility] [address] I had the pleasure of seeing Mr. 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 Started on Sinemet which caused side effects at 6/day. At last visit we tried to taper off it but he experiences return of tremors and confusion at dose of 3/day. Will increase Sinemet (more content not included)... Normal [facility] CNTHERAPYon 03-29-2022 CNTHERAPY OT/PT/Speech Visit (PTMDRG) KEVIN GRIFFITH ([id number]) 1945 M Date Time Provider Department 03/29/22 3:30 PM MAINE MEDEL PTMDRG Date Time Provider Department [place] 03/29/2022 3:30 PM [id number] MEDEL PTMDRG [facility] Reason for Visit: PT Eval [747] Patient Education [91] PT Discharge [752] Primary Visit Diagnosis:Parkinson disease (HCC) [G20] Allergies As of Date: 03/29/2022 Noted Allergy Reaction REGLAN (METOCLOPRAMIDE) 08/25/2021 1 - Mental Status Change Comments: psychosis Date Reviewed: 03/29/2022 Reviewed by: Jaylyn Nieves MD - Fully Assessed Prescriptions as of 07/29/2022 - carbidopa-levodopa (SINEMET 25-100) 25-100 mg per tablet Take 2 tablets by mouth three times daily. - DULoxetine (CYMBALTA) 20 mg capsule Take 1 capsule by mouth once daily. - hydrOXYzine HCl (ATARAX) 25 mg [...] Take 80 mg by mouth once daily. [facility] (OTMMC) KEVIN GRIFFITH ([id number]) 1945 M Date Time Provider Department 03/29/22 2:30 PM HEENA [facility] Date Time Provider Department Center 03/29/2022 2:30 PM [id number], DIANDRA [facility] Reason for Visit: OT EVAL [748] OT Discharge [750] Primary Visit Diagnosis:Parkinsonism, unspecified Parkinsonism type (HCC) [G20] Other Visit Diagnosis:Decreased activities of daily living (ADL) [Z78.9] Allergies As of Date: 03/29/2022 Noted Allergy Reaction REGLAN (METOCLOPRAMIDE) 08/25/2021 1 - Mental Status Change Comments: psychosis Date Reviewed: 03/29/2022 Reviewed by: Sindi Adams - Fully Assessed Prescriptions as of 03/29/2022 - DULoxetine (CYMBALTA) 20 mg capsule Take [...] Take 80 mg by mouth once daily. [facility] 03-23-[address] [facility] Telephone (TOANCTCase) KEVIN GRIFFITH ([id number]) 1945 M Date Time Provider Department 03/23/22 LIZBETHCHELSEAJAYLYN NIKOS During your visit today, we recorded the following information about you: Bryanna Haas MA 03/23/2022 10:50 AM Signed I called patient to get him pre-roomed for his upcoming appointment. I had to leave a voicemail for a returned call. If patient calls back please transfer call to myself or a clinical staff member to complete this process. Thanks! Bryanna Haas MA Allergies As of Date: 03/23/2022 Noted Allergy Reaction REGLAN (METOCLOPRAMIDE) 08/25/2021 1 - Mental Status Change Comments: psychosis Date Reviewed: 03/17/2022 Reviewed by: Bryanna Haas MA - Fully Assessed Reason for Visit: Upcoming Appointment [Other] Cmt: Pre-rooming phone call Prescriptions as of 03/23/2022 - DULoxetine (CYMBALTA) 20 mg capsule Take [...] Take 80 mg by mouth once daily. Problem List As Of Date 03/23/2022 Noted Resolved Parkinsonism (HCC) [G20] 03/18/2022 Gait instability [R26.81] 03/18/2022 Encounter Status:Closed by BR[facility]ANNA [facility] (NRMDN[facility] KEVIN GRIFFITH ([id number]) 1945 M Date Time Provider Department 03/17/22 3:00 PM JAYLYN NIEVES During your visit today, we recorded the following information about you: Pulse Blood pressure Weight Height 101/minute 120/77 125.8 kg 1.778 m Jaylyn Nieves MD 03/18/2022 4:12 PM Signed [facility] - FOLLOW UP EVALUATION No referring provider defined for this encounter. MD Bessie Gavin [address] [facility] [address] [facility] [address] I had the pleasure of seeing Mr. [...] to be helpful Interval History Seen at [facility] for surgical evaluation. SDR was too [...] 50 is above average, under 50 is be (more content not included)... Normal [facility] Basophil percentageon 2021 Chloride [Moles/Vol] 105 mmol/L 98-107 [facility] Work Phone: Glucose [Mass/Vol] 102 mg/dL 74-106 [facility] Work Phone: Comment on above: Fasting Glucose resu lt from 100 to 125 mg/dL suggests IMPAIRED HOMEOSTASIS per A.D.A. criteria. Potassium [Moles/Vol] 3.5 mmol/L 3.5-5.1 [facility] Work Phone: Sodium [Moles/Vol] 138 mmol/L 136-145 [facility] Work Phone: Laboratory - Chemistry and C hemistry - challengeon 03-10-2022 ALT [Catalytic activity/Vol] 21 U/L 16-61 [facility] Work Phone: CO2 [Moles/Vol] 26.0 mmol/L 21.0-32.0 [facility] Work Phone: Urea nitrogen/Creatinine [Mass ratio] 24.3 mg/mg 10-20 [facility] Work Phone: No Panel Informationon 03-10 Estimated GFR (MDRD) Amer 79 mL/min >60 [facility] Work Phone: Comment on above: GFR Calc Estimated GFR (MDRD) Non-Af Amer 65 mL/min >60 [facility] Work Phone: Comment on above: Non- GFR Calc Serum or plasma calcium walt urement (mass/volume)on 03-10-2022 Calcium [Mass/Vol] 8.8 mg/dL 8.5-10.1 [facility] Work Phone: Serum or plasma creatinine m easurement (mass/volume)on 03-10-2022 Creatinine [Mass/Vol] 1.15 mg/dL 0.70-1.30 [facility] Work Phone: Comment on above: The validity of the calculated GFR & GFRAA in patients over 70 years has not been determined. Clinical correlation is essential. Serum or plasma urea nitroge n measurement (mass/volume)on 03-10-2022 Urea nitrogen [Mass/Vol] 28 mg/dL 7-18 [facility] Work Phone: Thin prep Papanicolaou smear with manual screeningon 03-10-2022 Thin prep Papanicolaou smear with manual screening 21 U/L 15-37 [facility] Work Phone: Thin prep Papanicolaou smear with manual screening 7 5-15 [facility] Work Phone: Whole blood hemoglobin A1c/t otal hemoglobin ratio (mass fraction)on 03-10-2022 HbA1c (Bld) [Mass fraction] 6.5 % 3.8-5.6 [facility] Work Phone: Comment on above: Normal < 5.7 % Predi abetic 5.7 - 6.4 % Diabetic >or= 6.5 % Please note range changes. NM BRAIN DATSCAN SPECT CT SI NGLE AREA SINGLE DAYon 12-15-2021 NM BRAIN DATSCAN SPECT CT SINGLE AREA SINGLE DAY EXAMINATION: NM BRAIN DOPAMINE TRANSPORTER TOMOGRAPHIC IMAGING WITH SPECT/CT (DaTSCAN) HISTORY: Dx: Tremor R25.1 (ICD-10-CM). TECHNIQUE: The patient was given 130 mg oral potassium iodide prior to administration of the radiotracer. After the intravenous administration of 5.99 mCi I-123 ioflupane, tomographic SPECT/CT images of the brain were obtained. The low-dose, noncontrast CT images were used for attenuation correction and for fusion with emission SPECT images for anatomical localization. The study was interpreted based on a qualitative visualized assessment of striatal tracer binding. COMPARISON: Correlation with CT head dated 11/01/2021. FINDINGS: There is moderately decreased binding of I-123 ioflupane in both putamina. There is mildly decreased binding of the tracer in the left caudate nucleus. Tracer binding in the right caudate nucleus is within normal limits. The noncontrast CT images demonstrate mild generalized cerebral volume loss. IMPRESSION: Abnormal DaTscan. 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 General comments on the interpretation of I-123 ioflupane studies: The dopamine transporter is an imaging biomarker of the integrity of the nigrostriatal dopaminergic pathway. Decreased binding of I-123 ioflupane in the striatum indicates a presynaptic dopaminergic deficit and correlates with the loss of dopamine neurons that occurs in parkinsonian syndromes such as Parkinson's disease, multiple system atrophy, progressive supranuclear palsy and cortical basilar degeneration. Decreased striatal binding of I-123 ioflupane also occurs in dementia with Lewy bodies. Striatal I-123 ioflupane binding is normal in movement disorders due to essential tremor or drug-induced parkinsonism. An abnormal I-123 ioflupane study does not establish a specific diagnosis and is an adjunct to the clinical evaluation. Workstation ID: [id number] Dictated by: TANVI MATUTE on MonDec 15, 2021 5:24:44 PM EST Transcribed by: TANVI MATUTE on MonDec 15, 2021 5:24:44 PM EST Finalized by: TANVI MATUTE on MonDec 15, 2021 5:24:44 PM EST Normal [facility] Comment on above: Order Comment: Injur y/Trauma or Illness?:Illness/Other How long have you had these symptoms (acute/chronic)?:Acute Reason for exam?:resting tremor, Tremor Type of Exam?:Initial Additional signs and symptoms?:n Basophil percentageon 2020 Chloride [Moles/Vol] 104 mmol/L 98-107 [facility] Work Phone: Glucose [Mass/Vol] 148 mg/dL 74-106 [facility] Work Phone: Comment on above: Fasting Glucose resu lt greater than or equal to 126 mg/dL suggests DIABETES MELLITUS per A.D.A. criteria.Please note revised GLUCOSE reference range effective 2017. Potassium [Moles/Vol] 3.9 mmol/L 3.5-5.1 [facility] Work Phone: Sodium [Moles/Vol] 140 mmol/L 136-145 [facility] Work Phone: Laboratory - Chemistry and C hemistry - challengeon 11-15-2021 CO2 [Moles/Vol] 29.0 mmol/L 21.0-32.0 [facility] Work Phone: Urea nitrogen/Creatinine [Mass ratio] 18.5 mg/mg 10-20 [facility] Work Phone: No Panel Informationon 11-15 Estimated GFR (MDRD) Amer 85 mL/min >60 [facility] Work Phone: Comment on above: GFR Calc Estimated GFR (MDRD) Non-Af Amer 70 mL/min >60 [facility] Work Phone: Comment on above: Non- GFR Calc Serum or plasma calcium walt urement (mass/volume)on 11-15-2021 Calcium [Mass/Vol] 9.0 mg/dL 8.5-10.1 [facility] Work Phone: Serum or plasma creatinine m easurement (mass/volume)on 11-15-2021 Creatinine [Mass/Vol] 1.08 mg/dL 0.70-1.30 [facility] Work Phone: Comment on above: The validity of the calculated GFR & GFRAA in patients over 70 years has not been determined. Clinical correlation is essential. Serum or plasma urea nitroge n measurement (mass/volume)on 11-15-2021 Urea nitrogen [Mass/Vol] 20 mg/dL 7-18 [facility] Work Phone: Thin prep Papanicolaou smear with manual screeningon 11-15-2021 Thin prep Papanicolaou smear with manual screening 7 5-15 [facility] Work Phone: Whole blood hemoglobin A1c/t otal hemoglobin ratio (mass fraction)on 11-15-2021 HbA1c (Bld) [Mass fraction] 6.6 % 3.8-5.6 [facility] Work Phone: Comment on above: Normal < 5.7 % Predi abetic 5.7 - 6.4 % Diabetic >or= 6.5 % Please note range changes. CT HEAD OR BRAIN WITHOUT CON TRASTon 11-01-2021 CT HEAD OR BRAIN WITHOUT CONTRAST EXAMINATION: CT HEAD OR BRAIN WITHOUT CONTRAST HISTORY: SDR for HIFU COMPARISON: None. TECHNIQUE: Standard noncontrast brain CT. Dose reduction techniques were achieved by using automated exposure control and/or adjustment of mA and/or kV according to patient size and/or use of iterative reconstruction technique. FINDINGS: No intracranial hemorrhage, extra-axial fluid collection, hydrocephalus, midline shift, or acute infarction. No other mass effect. Patent basal cisterns. Lfju-hu-tqludpal symmetric global volume loss without lobar predominance. Commensurate ventricular system prominence. Focal suspect encephalomalacia/gliosi s in the inferior right temporal lobe. No calvarial fracture. Normal soft tissues. Paranasal sinuses and mastoid air cells are well-aerated. IMPRESSION: No acute intracranial process. Workstation ID: [id number] Dictated by: CATIE ENNIS on MonNov 02, 2021 8:48:26 AM EST Transcribed by: CATIE ENNIS on MonNov 02, 2021 8:48:26 AM EST Finalized by: CATIE ENNIS on MonNov 02, 2021 8:48:26 AM EST Normal [facility] Comment on above: Order Comment: Injur y/Trauma or Illness?:Illness/Other How long have you had these symptoms (acute/chronic)?:Acute Reason for exam?:trmors Type of Exam?:Initial Additional signs and symptoms?:HIFU protocol Glucose,Bedsideon 05-19-2021 Glucose [Mass/Vol] 137 mg/dL High 70-100 [facility] Comment on above: Result Comment: Test performed by glucose meter. Results may be 10%-15% lower than serum/plasma values. (CLIA ID [id number]) Performed By: #### B GLU #### [address] [address] OPERATIVE REPORTOrdered By: Scanning on 05-19-2021 [facility] Work Phone: POCT GlucoseOrdered By: Nii Altman on 05-19-2021 Glucose [Mass/Vol] 137 mg/dL High 70 - 100 mg/dL [facility] Work Phone: Comment on above: Test performed by gl ucose meter. Results may be 10%-15% lower than serum/plasma values. (CLIA ID [id number]) Interpretation and review of laboratory results Abnormal [facility] Work Phone: Test Performed by [facility] [employer] [facility], [address] [place] [id number] [place] [address] Work Phone: [facility] Work Phone: ECHO Pharmacological Stress TestOrdered By: Raeann Holland on 05-11-2021 STRESS ECHOCARDIOGRA M Dobutamine PATIENT: Kevin Griffith STUDY DATE: 05/11/2021 [facility]#: [id number] : 1945 AGE: 75 HT/WT: 177.8 cm (70 123.2 kg in) (271 lb) GENDER: M BP: 149 / 83 LOCATION: [facility] Outpatient [facility] STATUS: Medical Center *ORDERING PHYSICIAN: * Amalia, *FELLOW: * Wes Montilla MD *SUPERVISING PHYSICIAN: * *RN: * Bessie Duarte Diana *READING PHYSICIAN: * Donnell Valdes MD, *FINAL CANOE INSPECTOR: Amina Burnette [facility] -- INDICATIONS: Pre-operative. Shortness of breath. Abnormal EKG. -- HISTORY: Dyslipidemia. Chronic obstructive pulmonary disease. Family history of cardiovascular disease. Tobacco use former RBBB Hypertension treated Diabetic insulin dependent Medications: Aspirin. Albuterol. Pantoprazole (Protonix). Hydrochlorothiazide (Microzide). Glimepiride (Amaryl). Pravastatin (Pravachol). Metformin (Glucophage). Insulin. Allergies: Aristeo Patient is NPO per policy. -- CONCLUSIONS SUMMARY: 1. Normal study after pharmacologic stress. 2. Stress echo: There is no evidence for stress-induced ischemia. 3. Stress ECG conclusions: There was no ischemic ST depression. Occasional isolated atrial and ventricular ectopy during stress. -- STUDY DATA: Stress echocardiogram. Procedure: Initial setup. A baseline ECG was recorded. Surface ECG leads and blood pressure measurements were monitored. A Normal Saline fluid bolus was administered per policy. Image quality was suboptimal. The study was technically limited due to poor acoustic window availability and body habitus. Intravenous imaging enhancement (Definity) was administered to opacify the chamber. Definity lot #: [id number]. Definity dose administered: 6 ml. Definity wasted: 4 ml. Dobutamine stress test. Dobutamine was administered by intravenous infusion at an initial rate of 10 mcg/kg/min; the rate was advanced to a final rate of 30 mcg/kg/min. Heart rate response was augmented by the addition of hand installation specialist. The infusion was terminated after achieving the target heart rate. Transthoracic stress echocardiography. Images were captured at baseline, low dose, peak dose, and recovery. Total time of infusion 8 min 11 sec Limited 2D and color flow Doppler images were acquired and archived for permanent storage and are available for subsequent review. Study status: Routine. Patient status: Outpatient. Pre pain assessment is 0 out of 10. Post pain assessment is 0 out of 10. Location: Echo laboratory. Consent: The procedure was reviewed with the patient and the patient voices understanding. Study completion: The patient tolerated the procedure well. There were no complications. Discharge: Discharge instructions given The patient was discharged to homewhile ambulatory. -- FINDINGS LEFT VENTRICLE: Systolic function is normal by visual assessment. The estimated ejection fraction is 60%. There are no regional wall motion abnormalities. MITRAL VALVE: Structurally normal valve. Doppler: There is trivial, less than 1+ regurgitation. AORTIC VALVE: Not well visualized. Structurally normal valve. Probably trileaflet. Doppler: There is no regurgitation. TRICUSPID VALVE: Structurally normal valve. Doppler: There is trivial, less than 1+ regurgitation. AORTA: The aorta is well visualized and upper normal size. BASELINE ECG: Normal sinus rhythm with incomplete right bundle branch block. STRESS PROTOCOL: + +- --+ +------- -----+ -+ +Stage +HR +BP +Symptoms +Comments + + +- --+ +------- -----+ -+ +Baseline +64 +149/83 (105)+No symptoms.+Pulse ox 97% on + + + + + +RA. + + +- --+ +------- -----+ -+ +Dobutamine 10 +75 +135/52 (80) + +--------- ---------+ +ug/kg/min + + + + + + +- --+ +------- -----+ -+ +Peak stress +125+127/57 (80) + +--------- ---------+ + +- --+ +------- -----+ -+ +Recovery; 2 min +110+141/55 (84) + + (more content not included)... [employer] Work Phone: Brandyn, Nanali Incoming Cardiology Results From [employer]/Ottoniel - 05/11/2021 4:29 PM EDT STRESS ECHOCARDIOGRAM Dobutamine PATIENT: Kevin Griffith STUDY DATE: 05/11/2021 : 1945 AGE: 75 HT/WT: 177.8 cm (70 123.2 kg in) (271 lb) GENDER: M BP: 149 / 83 LOCATION: [employer] PATIENT Outpatient [facility] STATUS: Medical Center *ORDERING PHYSICIAN: * Amalia, *FELLOW: * Wes Montilla MD *SUPERVISING PHYSICIAN: * *RN: Bessie Irwin Diana *READING PHYSICIAN: * Donnell Valdes MD, *FINAL CANOE INSPECTOR: * Dai Burnette [facility] -- INDICATIONS: Pre-operative. Shortness of breath. Abnormal EKG. -- HISTORY: Dyslipidemia. Chronic obstructive pulmonary disease. Family history of cardiovascular disease. Tobacco use former RBBB Hypertension treated Diabetic insulin dependent Medications: Aspirin. Albuterol. Pantoprazole (Protonix). Hydrochlorothiazide (Microzide). Glimepiride (Amaryl). Pravastatin (Pravachol). Metformin (Glucophage). Insulin. Allergies: Gilbertolan Patient is NPO per policy. -- CONCLUSIONS SUMMARY: 1. Normal study after pharmacologic stress. 2. Stress echo: There is no evidence for stress-induced ischemia. 3. Stress ECG conclusions: There was no ischemic ST depression. Occasional isolated atrial and ventricular ectopy during stress. -- STUDY DATA: Stress echocardiogram. Procedure: Initial setup. A baseline ECG was recorded. Surface ECG leads and blood pressure measurements were monitored. A Normal Saline fluid bolus was administered per policy. Image quality was suboptimal. The study was technically limited due to poor acoustic window availability and body habitus. Intravenous imaging enhancement (Definity) was administered to opacify the chamber. Definity lot #: [id number]. Definity dose administered: 6 ml. Definity wasted: 4 ml. Dobutamine stress test. Dobutamine was administered by intravenous infusion at an initial rate of 10 mcg/kg/min; the rate was advanced to a final rate of 30 mcg/kg/min. Heart rate response was augmented by the addition of hand installation specialist. The infusion was terminated after achieving the target heart rate. Transthoracic stress echocardiography. Images were captured at baseline, low dose, peak dose, and recovery. Total time of infusion 8 min 11 sec Limited 2D and color flow Doppler images were acquired and archived for permanent storage and are available for subsequent review. Study status: Routine. Patient status: Outpatient. Pre pain assessment is 0 out of 10. Post pain assessment is 0 out of 10. Location: Echo laboratory. Consent: The procedure was reviewed with the patient and the patient voices understanding. Study completion: The patient tolerated the procedure well. There were no complications. Discharge: Discharge instructions given The patient was discharged to homewhile ambulatory. -- FINDINGS LEFT VENTRICLE: Systolic function is normal by visual assessment. The estimated ejection fraction is 60%. There are no regional wall motion abnormalities. MITRAL VALVE: Structurally normal valve. Doppler: There is trivial, less than 1+ regurgitation. AORTIC VALVE: Not well visualized. Structurally normal valve. Probably trileaflet. Doppler: There is no regurgitation. TRICUSPID VALVE: Structurally normal valve. Doppler: There is trivial, less than 1+ regurgitation. AORTA: The aorta is well visualized and upper normal size. BASELINE ECG: Normal sinus rhythm with incomplete right bundle branch block. STRESS PROTOCOL: + +- --+ +------- -----+ -+ +Stage +HR +BP +Symptoms +Comments + + +- --+ +------- -----+ -+ +Baseline +64 +149/83 (105)+No symptoms.+Pulse ox 97% on + + + + + +RA. + + +- --+ +------- -----+ -+ +Dobutamine 10 +75 +135/52 (80) + +--------- ---------+ +ug/kg/min + + + + + + +- --+ +------- -----+ -+ +Peak stress +125+127/57 (80) + +--------- ---------+ + +- --+ +------- -----+ -+ +Recovery; 2 min +110+141/55 (84) + +--------- ---------+ + +- --+ +------- -----+ -+ +Late recovery +88 +154/59 (91) + +--------- ---------+ + +- --+ +------- -----+ -+ STRESS RESULTS: There is an appropriate blo (more content not included)... [employer] Work Phone: [employer] Work Phone: Echo Dobutamine Stress Echo w/wo Conton 05-11-2021 Echo Dobutamine Stress Echo w/wo Cont Patient Name: KEVIN GRIFFITH Ultrasound ACCESSION EXAM DATE/TIME PROCEDURE ORDERING PROVIDER [id number] 05/11/2021 11:00 EDT Echo Dobutamine Stress AWAIS HOLLAND, RAEANN Echo w/wo Cont Reason For Exam (Echo Dobutamine Stress Echo w/wo Cont) pre op testing, abnormal EKG, shortness of breath Report STRESS ECHOCARDIOGRAM Dobutamine PATIENT: Kevin Griffith STUDY DATE: 05/11/2021 : 1945 AGE: 75 HT/WT: 177.8 cm (70 123.2 kg in) (271 lb) GENDER: M BP: 149 / 83 LOCATION: [facility] PATIENT Outpatient [facility] STATUS: Medical Center *ORDERING PHYSICIAN: * Amalia, *FELLOW: * Wes Montilla MD *SUPERVISING PHYSICIAN: * *RN: Bessie Irwin Diana *READING PHYSICIAN: * Donnell Valdes MD, *FINAL CANOE INSPECTOR: * Dai Burnette [facility] -- INDICATIONS: Pre-operative. Shortness of breath. Abnormal EKG. -- HISTORY: Dyslipidemia. Chronic obstructive pulmonary disease. Family history of cardiovascular disease. Tobacco use former RBBB Hypertension treated Diabetic insulin dependent Medications: Aspirin. Albuterol. Pantoprazole (Protonix). Hydrochlorothiazide (Microzide). Glimepiride (Amaryl). Pravastatin (Pravachol). Metformin (Glucophage). Insulin. Allergies: Reglan Patient is NPO per policy. -- CONCLUSIONS SUMMARY: 1. Normal study after pharmacologic stress. 2. Stress echo: There is no evidence for stress-induced ischemia. 3. Stress ECG conclusions: There was no ischemic ST depression. Occasional isolated atrial and ventricular ectopy during stress. -- STUDY DATA: Stress echocardiogram. Procedure: Initial setup. A baseline ECG was recorded. Surface ECG leads and blood pressure measurements were monitored. A Normal Saline fluid bolus was administered per policy. Image quality was suboptimal. The study was technically limited due to poor acoustic window availability and body habitus. Intravenous imaging enhancement (Definity) was administered to Ultrasound Report opacify the chamber. Definity lot #: [id number]. Definity dose administered: 6 ml. Definity wasted: 4 ml. Dobutamine stress test. Dobutamine was administered by intravenous infusion at an initial rate of 10 mcg/kg/min; the rate was advanced to a final rate of 30 mcg/kg/min. Heart rate response was augmented by the addition of hand installation specialist. The infusion was terminated after achieving the target heart rate. Transthoracic stress echocardiography. Images were captured at baseline, low dose, peak dose, and recovery. Total time of infusion 8 min 11 sec Limited 2D and color flow Doppler images were acquired and archived for permanent storage and are available for subsequent review. Study status: Routine. Patient status: Outpatient. Pre pain assessment is 0 out of 10. Post pain assessment is 0 out of 10. Location: Echo laboratory. Consent: The procedure was reviewed with the patient and the patient voices understanding. Study completion: The patient tolerated the procedure well. There were no complications. Discharge: Discharge instructions given The patient was discharged to homewhile ambulatory. -- FINDINGS LEFT VENTRICLE: Systolic function is normal by visual assessment. The estimated ejection fraction is 60%. There are no regional wall motion abnormalities. MITRAL VALVE: Structurally normal valve. Doppler: There is trivial, less than 1+ regurgitation. AORTIC VALVE: Not well visualized. Structurally normal valve. Probably trileaflet. Doppler: There is no regurgitation. TRICUSPID VALVE: Structurally normal valve. Doppler: There is trivial, less than 1+ regurgitation. AORTA: The aorta is well visualized and upper normal size. BASELINE ECG: Normal sinus rhythm with incomplete right bundle branch block. STRESS PROTOCOL: + +- --+ +------- -----+ -+ +Stage +HR +BP +Symptoms +Comments + + +- --+ +------- -----+ -+ +Baseline +64 +149/83 (105)+No symptoms.+Pulse ox 97% on + + + + + +RA. + + +- --+ +------- -----+ -+ +Dobutamine 10 +75 +135/52 (80) + +--------- ---------+ +ug/kg/min + + + + + + +- --+ +------- -----+ -+ +Peak stress +125+127/57 (80) + +--------- ---------+ + +- --+ +------- -----+ -+ +Recovery; 2 min +110+141/55 (84) + +--------- ---------+ + +- --+ +-- (more content not included)... Normal Dine perfect CBCOrdered By: Raeann murillo on 05-05-2021 Hematocrit (Bld) [Volume fraction] 46.8 % 40.0 - 52.0 % [employer] Phone: Hemoglobin.gastrointestin al spec 1 Ql (Stl) 15.9 g/dL 13.0 - 18.0 g/dL [employer] Phone: Interpretation and review of laboratory results Abnormal [employer] Phone: MCH (RBC) [Entitic mass] 31.9 pg 26. 0 - 34.0 pg [facility] Work Phone: [phone] MCHC (RBC) [Mass/Vol] 34.0 % 32.0 - 36.0 % [facility] Work Phone: [phone] MCV (RBC) [Entitic vol] 94.0 fL 80.0 - 98.0 fL [facility] Work Phone: [phone] Platelet distribution width (Bld) [Ratio] 13.6 % 11.5 - 14.5 % [facility] Work Phone: [phone] Platelet mean volume (Bld) [Entitic vol] 9.0 fL 7.4 - 10.4 fL [facility] Work Phone: [phone] Platelets (Bld) [#/Vol] 287 10*3/uL 140 - 440 10*3/uL [facility] Work Phone: [phone] RBC (Bld) [#/Vol] 4.98 10*6/uL 4.40 - 5.9 0 10*6/uL [facility] Work Phone: [phone] WBC (Bld) [#/Vol] 11.0 10*3/uL High 3.6 - 10.7 10*3/uL [facility] Work Phone: [phone] Test Performed by [facility], [address] [place] [id number] [facility] Work Phone: [phone] [facility] Work Phone: [phone] Comp Panel with Mg Reflexon 05-05-2021 ALP [Catalytic activity/Vol] 74 U/L Normal 38-[address] [facility] Comment on above: Performed By: #### C MP3M, HEMOG #### [facility] [employer] [facility] [address] [place] [address] ALT [Catalytic activity/Vol] 38 U/L Normal 0-[address] [facility] Comment on above: Result Comment: The ALT test is performed by an updated assay method. Please note that the reference intervals have been changed and are now sex specific. Performed By: #### C MP3M, HEMOG #### [facility] [employer] [facility] [address] [place] [address] AST [Catalytic activity/Vol] 28 U/L Normal 15-[address] [facility] Comment on above: Performed By: #### C MP3M, HEMOG #### [facility] [address] [place] [address] Calcium [Mass/Vol] 9.6 mg/dL Normal 8.4-10.[address] [facility] Comment on above: Performed By: #### C MP3M, HEMOG #### [facility] [address] [place] [address] Glucose [Mass/Vol] 55 mg/dL Low 70-[address] [facility] Comment on above: Performed By: #### C MP3M, HEMOG #### [facility] [address] [place] [address] Protein [Mass/Vol] 8.1 g/dL Normal 6.3-8.[address] [facility] Comment on above: Performed By: #### C MP3M, HEMOG #### [facility] [address] [place] [address] Urea nitrogen [Mass/Vol] 23 mg/dL High 7-[address] [facility] Comment on above: Performed By: #### C MP3M, HEMOG #### [facility] [address] [place] [address] Anion gap [Moles/Vol] 9 mmol/L Normal 3-13 [facility] Comment on above: Performed By: #### C MP3M, HEMOG #### [facility] [facility] [address] [place] [address] Bilirubin [Mass/Vol] 1.3 mg/dL Normal 0.2-1.3 [facility] Comment on above: Performed By: #### C MP3M, HEMOG #### [facility] [address] [place] [address] CO2 [Moles/Vol] 30 mmol/L Normal 22-[address] [facility] Comment on above: Performed By: #### C MP3M, HEMOG #### [facility] [address] [place] [address] Creatinine [Mass/Vol] 1.02 mg/dL Normal 0.52-1.25 [facility] Comment on above: Performed By: #### C MP3M, HEMOG #### [facility] [address], [place] GFR/1.73 sq M.predicted among blacks MDRD (S/P/Bld) [Vol rate/Area] 81.9 mL/min/{1.73_m2} Normal >[address] [facility] Comment on above: Performed By: #### C MP3M, HEMOG #### [facility] [address], [place] GFR/1.73 sq M.predicted among non-blacks MDRD (S/P/Bld) [Vol rate/Area] 70.7 mL/min/{1.73_m2} Normal >[address] [facility] Comment on above: Result Comment: KDIG O guidelines provide the following GFR categories: Stage GFR(ml/min/1.73 m2) Terms G1 >=90 Normal or high G2 60-89 Mildly decreased* G3a 45-59 Mildly to moderately decreased G3b 30-44 Moderately to severely decreased G4 15-29 Severely decreased G5 <15 Kidney failure *Relative to young adult level. In the absence of evidence of kidney damage, neither GFR category G1 nor G2 fulfill the criteria for CKD. The CKD-EPI equation is validated in individuals 18 years of age and older. Currently the best equation for estimating glomerular filtration rate (GFR) from serum creatinine in children is the Bedside Ortega equation. It is less accurate in patients with extremes of muscle mass, restriction of dietary protein, ingestion of creatine, extra-renal metabolism of creatinine, or treatment with medications that affect renal tubular creatinine secretion. Performed By: #### C MP3M, HEMOG #### [facility] [address], [place] Albumin [Mass/Vol] 4.8 g/dL Normal 3.5-5.[address] [facility] Comment on above: Performed By: #### C MP3M, HEMOG #### [facility] [address], [place] Chloride [Moles/Vol] 101 mmol/L Normal 98-107 [facility] Comment on above: Performed By: #### C MP3M, HEMOG #### [place] [address] [place], [place] Potassium [Moles/Vol] 3.9 mmol/L Normal 3.5-5.1 [facility] Comment on above: Performed By: #### C MP3M, HEMOG #### [facility] [address], [place] Sodium [Moles/Vol] 140 mmol/L Normal 135-[address] [facility] Comment on above: Performed By: #### C MP3M, HEMOG #### [facility] [address], [place] Comprehensive Metabolic Pane l w/ Reflex to MGOrdered By: Raeann Holland on 05-05-2021 Albumin [Mass/Vol] 4.8 g/dL 3.5 - 5.0 g/dL [facility] Work Phone: [phone] ALP (Bld) [Catalytic activity/Vol] 74 U/L 38 - 126 U/L [facility] Work Phone: [phone] ALT [Catalytic activity/Vol] 38 U/L 0 - 49 U/L [facility] Work Phone: Comment on above: The ALT test is perf ormed by an updated assay method. Please note that the reference intervals have been changed and are now sex specific. Anion gap [Moles/Vol] 9 mmol/L 3 - 13 mmol/L [facility] Work Phone: [phone] AST [Catalytic activity/Vol] 28 U/L 15 - 46 U/L [facility] Work Phone: [phone] Bilirubin [Mass/Vol] 1.3 mg/dL 0.2 - 1 .3 mg/dL [facility] Work Phone: [phone] Calcium [Mass/Vol] 9.6 mg/dL 8.4 - 10. 4 mg/dL [facility] Work Phone: [phone] Chloride [Moles/Vol] 101 mmol/L 98 - 10 7 mmol/L [facility] Work Phone: [phone] CO2 [Moles/Vol] 30 mmol/L 22 - 30 mmol/L [facility] Work Phone: [phone] Creatinine [Mass/Vol] 1.02 mg/dL 0.52 - 1.25 mg/dL [facility] Work Phone: [phone] EGFR IF NonAfrican Burundian 70.7 mL/min >60 [facility] Work Phone: Comment on above: KDIGO guidelines pro vide the following GFR categories: Stage GFR(ml/min/1.73 m2) Terms G1 >=90 Normal or high G2 60-89 Mildly decreased* G3a 45-59 Mildly to moderately decreased G3b 30-44 Moderately to severely decreased G4 15-29 Severely decreased G5 <15 Kidney failure *Relative to young adult level. In the absence of evidence of kidney damage, neither GFR category G1 nor G2 fulfill the criteria for CKD. The CKD-EPI equation is validated in individuals 18 years of age and older. Currently the best equation for estimating glomerular filtration rate (GFR) from serum creatinine in children is the Bedside Ortega equation. It is less accurate in patients with extremes of muscle mass, restriction of dietary protein, ingestion of creatine, extra-renal metabolism of creatinine, or treatment with medications that affect renal tubular creatinine secretion. Free PSA/Total PSA [Mass fraction] 8.1 g/dL 6.3 - 8.2 g/dL [facility] Work Phone: GFR/1.73 sq M.predicted among blacks MDRD (S/P/Bld) [Vol rate/Area] 81.9 mL/min/{1.73_m2} >60 [facility] Work Phone: Glucose [Mass/Vol] 55 mg/dL Low 70 - 100 mg/dL [facility] Work Phone: Interpretation and review of laboratory results Abnormal [facility] Work Phone: [phone] Potassium [Moles/Vol] 3.9 mmol/L 3.5 - 5.1 mmol/L [facility] Work Phone: [phone] Sodium [Moles/Vol] 140 mmol/L 135 - 145 mmol/L [facility] Work Phone: Urea nitrogen (BldV) [Mass/Vol] 23 mg/dL High 7 - 20 mg/dL [facility] Work Phone: [phone] Performed by [facility], [address] [place] [id number] [facility] Work Phone: [facility] Work Phone: Hemogramon 05-05-2021 Erythrocyte distribution width (RBC) [Ratio] 13.6 % Normal 11.5-14.[address] [facility] Comment on above: Performed By: #### C MP3M, HEMOG #### [facility] [employer] [facility] [address] [place] [address] Hematocrit (Bld) [Volume fraction] 46.8 % Normal 40.0-52.[address] [facility] Comment on above: Performed By: #### C MP3M, HEMOG #### [facility] [address] [place] [address] Hemoglobin (Bld) [Mass/Vol] 15.9 g/dL Normal 13.0-18.[address] [facility] Comment on above: Performed By: #### C MP3M, HEMOG #### [facility] [address], [place] MCH (RBC) [Entitic mass] 31.9 pg Normal 26.0-34.[address] [facility] Comment on above: Performed By: #### C MP3M, HEMOG #### [facility] [employer] [facility] [address] [place], [place] MCHC 34.0 % Normal 32.0-36.[address] [facility] Comment on above: Performed By: #### C MP3M, HEMOG #### [facility] [address], [place] MCV (RBC) [Entitic vol] 94.0 fL Normal 80.0-98.0 [facility] Comment on above: Performed By: #### C MP3M, HEMOG #### [facility] [employer] [facility] [address], [place] Platelet mean volume (Bld) [Entitic vol] 9.0 fL Normal 7.4-10.[address] [facility] Comment on above: Performed By: #### C MP3M, HEMOG #### [facility] [employer] [facility] [address] [place] [address] Platelets (Bld) [#/Vol] 287 10*3/uL Normal 140-[address] [facility] Comment on above: Performed By: #### C MP3M, HEMOG #### [facility] [address] [place] [address] RBC (Bld) [#/Vol] 4.98 10*6/uL Normal 4.40-5.[address] [facility] Comment on above: Performed By: #### C MP3M, HEMOG #### [address] [address] WBC (Bld) [#/Vol] 11.0 10*3/uL High 3.6-10.[address] [facility] Comment on above: Performed By: #### C MP3M, HEMOG #### [facility] [address] [place] [address] TS GELon 05-05-2021 TS GEL ABO Group: A Rh, Gel: POS Antibody Screen Gel: NEG Normal [facility] Comment on above: Performed By: #### T SGL #### [facility] TYPE AND SCREENOrdered By: Khushbu Holland on 05-05-2021 ABO Grouping A [facility] Work Phone: Rh Type Positive [facility] Work Phone: Test Performed by [facility], [address] [place] [id number] [facility] Work Phone: [facility] Work Phone: Otheron 08-16-2006 CONVERTED ELECTRONIC SIGNATURE KENNY SIMPSON M.D., PATHOLOGIST (Electronic signature on file) Final Signed Out: 08/16/2006 12:36 [facility] CONVERTED FINAL DIAGNOSIS LEFT KNEE, EXC ISION - DEGENERATIVE CHANGES OF ARTICULAR CARTILAGE CONSISTENT WITH OSTEOARTHRITIS. [facility] CONVERTED ORDERING PROVIDER Ordering Provider: WYATT NOBLE [facility] Otheron 02-06-2006 CONVERTED ELECTRONIC SIGNATURE BILL MELTON M.D., PATHOLOGIST (Electronic signature on file) Final Signed Out: 02/06/2006 15:13 [facility] CONVERTED FINAL DIAGNOSIS LEFT KNEE, EXC ISION - FIBROCARTILAGE WITH DEGENERATIVE CHANGES. SYNOVIUM WITH NONSPECIFIC REACTIVE CHANGES. [facility] CONVERTED ORDERING PROVIDER Ordering Provider: WYATT NOBLE [facility] Vital Signs Date Time Vital Sign Value Performing Clinician Facility 04-13-2025 22:27-0400 Diastolic blood pressure 75 mm[Hg] FINA Powell MD Work Phone: [facility] 04-13-2025 22:27-0400 Heart rate 77 /min FINA Powell MD Work Phone: [facility] 04-13-2025 22:27-0400 Respiratory rate 20 /min FINA Powell MD Work Phone: [facility] 04-13-2025 22:27-0400 SaO2% (BldA) [Mass fraction] 97 % FINA Powell MD Work Phone: [facility] 04-13-2025 22:27-0400 Systolic blood pressure 133 mm[Hg] FINA Powell MD Work Phone: [facility] 04-13-2025 20:40-0400 Body temperature 98.01 [degF] FINA Powell MD Work Phone: [facility] 04-09-2025 13:13-0400 Body temperature 96.8 [degF] Dr. Ron Cooley MD Work Phone: [facility] 04-09-2025 13:13-0400 Diastolic blood pressure 65 mm[Hg] Dr. Ron Cooley MD Work Phone: [facility] 04-09-2025 13:13-0400 Heart rate 76 /min Dr. Ron Cooley MD Work Phone: [facility] 04-09-2025 13:13-0400 Respiratory rate 18 /min Dr. Ron Cooley MD Work Phone: [facility] 04-09-2025 13:13-0400 SaO2% (BldA) [Mass fraction] 98 % Dr. Ron Cooley MD Work Phone: [facility] 04-09-2025 13:13-0400 Systolic blood pressure 145 mm[Hg] Dr. Ron Cooley MD Work Phone: [facility] 04-09-2025 11:18-0400 Body height [address] Ron Cooley MD Work Phone: [facility] 04-09-2025 11:18-0400 Body mass index (BMI) [Ratio] 35.8 kg/m2 Dr. Ron Cooley MD Work Phone: [facility] 04-09-2025 11:18-0400 Body weight 113.[address] Ron Cooley MD Work Phone: [facility] 03-20-2025 16:23-0400 Diastolic blood pressure 78 mm[Hg] Dr. Ron Cooley MD Work Phone: [facility] 03-20-2025 16:23-0400 Systolic blood pressure 164 mm[Hg] Dr. Ron Cooley MD Work Phone: 5(875)229-034565 [place] [address] 03-20-2025 15:16-0400 Body height 177.[address] Ron Cooley MD Work Phone: 6(733)770-749752 [place] [address] 03-20-2025 15:16-0400 Body mass index (BMI) [Ratio] 34.9 kg/m2 Dr. Ron Cooley MD Work Phone: [facility] 03-20-2025 15:16-0400 Body temperature 98.2 [degF] Dr. Ron Cooley MD Work Phone: [facility] 03-20-2025 15:16-0400 Body weight 110.[address] Ron Cooley MD Work Phone: [facility] 03-20-2025 15:16-0400 Diastolic blood pressure 72 mm[Hg] Dr. Ron Cooley MD Work Phone: [facility] 03-20-2025 15:16-0400 Heart rate 86 /min Dr. Ron Cooley MD Work Phone: [facility] 03-20-2025 15:16-0400 Respiratory rate 15 /min Dr. Ron Cooley MD Work Phone: [facility] 03-20-2025 15:16-0400 SaO2% (BldA) [Mass fraction] 95 % Dr. Ron Cooley MD Work Phone: [facility] 03-20-2025 15:16-0400 Systolic blood pressure 134 mm[Hg] Dr. Ron Cooley MD Work Phone: [facility] 02-14-2025 21:12-0400 Body height 177.[address] Ron Cooley MD Work Phone: 9(576)365-399652 [place] [address] 02-14-2025 21:12-0400 Body temperature 97.3 [degF] Dr. Ron Cooley MD Work Phone: 5(039)771-099565 [place] [address] 02-14-2025 21:12-0400 Diastolic blood pressure 60 mm[Hg] Dr. Ron Cooley MD Work Phone: 9(327)666-355052 [place] [address] 02-14-2025 21:12-0400 Heart rate 93 /min Dr. Ron Cooley MD Work Phone: 8(459)778-143152 [place] [address] 02-14-2025 21:12-0400 Respiratory rate 18 /min Dr. Ron Cooley MD Work Phone: 9(060)253-765140 [address] 02-14-2025 21:12-0400 SaO2% (BldA) [Mass fraction] 92 % Dr. Ron Cooley MD Work Phone: [facility] 02-14-2025 21:12-0400 Systolic blood pressure 137 mm[Hg] Dr. Ron Cooley MD Work Phone: 5(413)185-945652 [place] [address] 02-06-2025 14:25-0400 Diastolic blood pressure 64 mm[Hg] Dr. Ron Cooley MD Work Phone: [facility] 02-06-2025 14:25-0400 Systolic blood pressure 116 mm[Hg] Dr. Ron Cooley MD Work Phone: 9(790)670-737065 [place] [address] 02-06-2025 12:56-0400 Body temperature 97.8 [degF] Dr. Ron Cooley MD Work Phone: 6(253)397-957952 [place] [address] 02-06-2025 12:56-0400 Body weight 110.[address] Ron Cooley MD Work Phone: 4(126)872-319552 [place] [address] 02-06-2025 12:56-0400 Heart rate 82 /min Dr. Ron Cooley MD Work Phone: 9(585)063-087365 [place] [address] 02-06-2025 12:56-0400 Respiratory rate 17 /min Dr. Ron Cooley MD Work Phone: 4(191)531-485465 [place] [address] 02-06-2025 12:56-0400 SaO2% (BldA) [Mass fraction] 95 % Dr. Ron Cooley MD Work Phone: 4(574)508-595765 [place] [address] 12-10-2024 14:30-0500 Diastolic blood pressure 70 mm[Hg] Dr. Ron Cooley MD Work Phone: 2(852)996-412865 [place] [address] 12-10-2024 14:30-0500 Systolic blood pressure 130 mm[Hg] Dr. Ron Cooley MD Work Phone: 7(246)183-099765 [place] [address] 12-10-2024 10:36-0500 Body height 177.[address] Ron Cooley MD Work Phone: 7(764)920-244765 [place] [address] 12-10-2024 10:36-0500 Body mass index (BMI) [Ratio] 34.7 kg/m2 Dr. Ron Cooley MD Work Phone: 8(493)179-366965 [place] [address] 12-10-2024 10:36-0500 Body temperature 97.7 [degF] Dr. Ron Cooley MD Work Phone: 5(707)627-280152 [place] [address] 12-10-2024 10:36-0500 Body weight 109.[address] Ron Cooley MD Work Phone: 9(855)777-652265 [place] [address] 12-10-2024 10:36-0500 Heart rate 77 /min Dr. Ron Cooley MD Work Phone: 2(708)274-057052 [place] [address] 12-10-2024 10:36-0500 Respiratory rate 14 /min Dr. Ron Cooley MD Work Phone: 0(120)634-851452 [place] [address] 12-10-2024 10:36-0500 SaO2% (BldA) [Mass fraction] 97 % Dr. Ron Cooley MD Work Phone: 4(289)223-385752 [place] [address] 12-05-2024 19:35-0500 Body temperature 98 [degF] Dr. Ron Cooley MD Work Phone: 7(350)591-558152 [place] [address] 12-05-2024 19:35-0500 Diastolic blood pressure 75 mm[Hg] Dr. Ron Cooley MD Work Phone: 9(177)423-330565 [place] [address] 12-05-2024 19:35-0500 Heart rate 67 /min Dr. Ron Cooley MD Work Phone: 0(972)762-430565 [place] [address] 12-05-2024 19:35-0500 Respiratory rate 18 /min Dr. Ron Cooley MD Work Phone: 1(526)936-902965 [place] [address] 12-05-2024 19:35-0500 SaO2% (BldA) [Mass fraction] 97 % Dr. Ron Cooley MD Work Phone: 3(351)111-036165 [place] [address] 12-05-2024 19:35-0500 Systolic blood pressure 118 mm[Hg] Dr. Ron Cooley MD Work Phone: 1(149)176-720865 [place] [address] 12-05-2024 17:15-0500 Body mass index (BMI) [Ratio] 34.5 kg/m2 Dr. Ron Cooley MD Work Phone: 0(508)997-648065 [place] [address] 12-05-2024 17:15-0500 Body weight 109.[address] Ron Cooley MD Work Phone: 2(423)996-723952 [place] [address] 10-12-2024 13:02-0500 Body temperature 98.2 [degF] Dr. Ron Cooley MD Work Phone: 4(811)919-049965 [place] [address] 10-12-2024 13:02-0500 Diastolic blood pressure 84 mm[Hg] Dr. Ron Cooley MD Work Phone: 5(107)094-781640 [address] 10-12-2024 13:02-0500 Heart rate 78 /min Dr. Ron Cooley MD Work Phone: 8(023)850-223740 [address] 10-12-2024 13:02-0500 Respiratory rate 16 /min Dr. Ron Cooley MD Work Phone: [facility] 10-12-2024 13:02-0500 SaO2% (BldA) [Mass fraction] 95 % Dr. Ron Cooley MD Work Phone: [facility] 10-12-2024 13:02-0500 Systolic blood pressure 121 mm[Hg] Dr. Ron Cooley MD Work Phone: [facility] 10-12-2024 11:16-0500 Body mass index (BMI) [Ratio] 35.6 kg/m2 Dr. Ron Cooley MD Work Phone: [facility] 10-12-2024 11:16-0500 Body weight 112.[address] Ron Cooley MD Work Phone: 6(347)849-288052 [place] [address] 03-25-2024 14:24-0400 Body height 177.[address] Ron Cooley Work Phone: [facility] 03-25-2024 14:24-0400 Body mass index (BMI) [Ratio] 36.3 kg/m2 Dr. Ron Cooley Work Phone: [facility] 03-25-2024 14:24-0400 Body temperature 98 [degF] Dr. Ron Cooley Work Phone: [facility] 03-25-2024 14:24-0400 Body weight 114.[address] Ron Cooley Work Phone: [facility] 03-25-2024 14:24-0400 Diastolic blood pressure 58 mm[Hg] Dr. Ron Cooley Work Phone: [facility] 03-25-2024 14:24-0400 Heart rate 78 /min Dr. Ron Cooley Work Phone: [facility] 03-25-2024 14:24-0400 Respiratory rate 17 /min Dr. Ron Cooley Work Phone: [facility] 03-25-2024 14:24-0400 SaO2% (BldA) [Mass fraction] 94 % Dr. Ron Cooley Work Phone: [facility] 03-25-2024 14:24-0400 Systolic blood pressure 124 mm[Hg] Dr. Ron Cooley Work Phone: [facility] 11-23-2023 14:02-0500 Body height 177.[address] Ron Cooley Work Phone: [facility] 11-23-2023 14:02-0500 Body mass index (BMI) [Ratio] 37 kg/m2 Dr. Ron Cooley Work Phone: [facility] 11-23-2023 14:02-0500 Body temperature 97.8 [degF] Dr. Ron Cooley Work Phone: [facility] 11-23-2023 14:02-0500 Body weight 117.[address] Ron Cooley Work Phone: [facility] 11-23-2023 14:02-0500 Diastolic blood pressure 84 mm[Hg] Dr. Ron Cooley Work Phone: [facility] 11-23-2023 14:02-0500 Heart rate 75 /min Dr. Ron Cooley Work Phone: [facility] 11-23-2023 14:02-0500 Respiratory rate 17 /min Dr. Ron Cooley Work Phone: [facility] 11-23-2023 14:02-0500 SaO2% (BldA) [Mass fraction] 93 % Dr. Ron Cooley Work Phone: [facility] 11-23-2023 14:02-0500 Systolic blood pressure 112 mm[Hg] Dr. Ron Cooley Work Phone: [facility] 08-07-2023 14:26-0400 Body height 177.[address] Ron Cooley Work Phone: [facility] 08-07-2023 14:26-0400 Body mass index (BMI) [Ratio] 38 kg/m2 Dr. Ron Cooley Work Phone: [facility] 08-07-2023 14:26-0400 Body temperature 98.4 [degF] Dr. Ron Cooley Work Phone: [facility] 08-07-2023 14:26-0400 Body weight 120.[address] Ron Cooley Work Phone: [facility] 08-07-2023 14:26-0400 Diastolic blood pressure 88 mm[Hg] Dr. Ron Cooley Work Phone: [facility] 08-07-2023 14:26-0400 Heart rate 74 /min Dr. Ron Cooley Work Phone: [facility] 08-07-2023 14:26-0400 Respiratory rate 17 /min Dr. Ron Cooley Work Phone: [facility] 08-07-2023 14:26-0400 SaO2% (BldA) [Mass fraction] 96 % Dr. Ron Cooley Work Phone: [facility] 08-07-2023 14:26-0400 Systolic blood pressure 138 mm[Hg] Dr. Ron Cooley Work Phone: [facility] 04-12-2023 10:15-0400 Body height 177.[address] Ron Cooley Work Phone: [facility] 04-12-2023 10:15-0400 Body mass index (BMI) [Ratio] 37 kg/m2 Dr. Ron Cooley Work Phone: [facility] 04-12-2023 10:15-0400 Body weight 117.[address] Ron Cooley Work Phone: [facility] 04-12-2023 10:15-0400 Diastolic blood pressure 70 mm[Hg] Dr. Ron Cooley Work Phone: [facility] 04-12-2023 10:15-0400 Heart rate 60 /min Dr. Ron Cooley Work Phone: [facility] 04-12-2023 10:15-0400 Respiratory rate 18 /min Dr. Ron Cooley Work Phone: [facility] 04-12-2023 10:15-0400 Systolic blood pressure 119 mm[Hg] Dr. Ron Cooley Work Phone: [facility] 04-11-2023 21:17-0400 Diastolic blood pressure 74 mm[Hg] Dr. Ron Cooley Work Phone: [facility] 04-11-2023 21:17-0400 Systolic blood pressure 124 mm[Hg] Dr. Ron Cooley Work Phone: [facility] 04-11-2023 21:16-0400 Heart rate 61 /min Dr. Ron Cooley Work Phone: [facility] 04-11-2023 09:55-0400 Body mass index (BMI) [Ratio] 37.3 kg/m2 Dr. Ron Cooley Work Phone: [facility] 04-11-2023 09:55-0400 Body temperature 97.8 [degF] Dr. Ron Cooley Work Phone: [facility] 04-11-2023 09:55-0400 Body weight 118.[address] Ron Cooley Work Phone: [facility] 04-11-2023 09:55-0400 Diastolic blood pressure 66 mm[Hg] Dr. Ron Cooley Work Phone: [facility] 04-11-2023 09:55-0400 Heart rate 70 /min Dr. Ron Cooley Work Phone: [facility] 04-11-2023 09:55-0400 Respiratory rate 17 /min Dr. Ron Cooley Work Phone: [facility] 04-11-2023 09:55-0400 SaO2% (BldA) [Mass fraction] 98 % Dr. Ron Cooley Work Phone: [facility] 04-11-2023 09:55-0400 Systolic blood pressure 140 mm[Hg] Dr. Ron Cooley Work Phone: [facility] 02-11-2023 12:46-0400 Body height 177.8 cm [facility] 02-11-2023 12:46-0400 Body mass index (BMI) [Ratio] 36.8 kg/m2 [facility] 02-11-2023 12:46-0400 Body temperature 97 [degF] [facility] 02-11-2023 12:46-0400 Body weight 116.52 kg [facility] 02-11-2023 12:46-0400 Diastolic blood pressure 68 mm[Hg] [facility] 02-11-2023 12:46-0400 Heart rate 82 /min [facility] 02-11-2023 12:46-0400 Respiratory rate 18 /min [facility] 02-11-2023 12:46-0400 SaO2% (BldA) [Mass fraction] 97 % [facility] 02-11-2023 12:46-0400 Systolic blood pressure 149 mm[Hg] [facility] 12-12-2022 13:47-0500 Body height 177.8 cm Leni Ruiz APRN.[employer] Work Phone: [facility] 12-12-2022 13:47-0500 Body weight 118.3 kg Leni Ruiz APRN.[employer] Work Phone: [facility] 12-12-2022 13:47-0500 SaO2% (BldA) [Mass fraction] 96 % Leni Ruiz APRN.[employer] Work Phone: [facility] 08-04-2022 13:56-0400 Diastolic blood pressure 86 mm[Hg] Jaylyn Nieves MD Work Phone: [facility] 08-04-2022 13:56-0400 Heart rate 107 /min Jaylyn Nieves MD Work Phone: [facility] 08-04-2022 13:56-0400 Respiratory rate 16 /min Jaylyn Nieves MD Work Phone: [facility] 08-04-2022 13:56-0400 SaO2% (BldA) [Mass fraction] 95 % Jaylyn Nieves MD Work Phone: [facility] 08-04-2022 13:56-0400 Systolic blood pressure 109 mm[Hg] Jaylyn Nieves MD Work Phone: [facility] 04-12-2022 08:46-0400 Body height 177.[address] Patricia Mcgowan Work Phone: [facility] Work Phone: 04-12-2022 08:46-0400 Body mass index (BMI) [Ratio] 38.4 kg/m2 Dr. Patricia Mcgowan Work Phone: [facility] Work Phone: 04-12-2022 08:46-0400 Body weight 121.[address] Patricia Mcgowan Work Phone: [facility] Work Phone: 04-12-2022 08:46-0400 Diastolic blood pressure 71 mm[Hg] Dr. Patricia Mcgowan Work Phone: [facility] Work Phone: 04-12-2022 08:46-0400 Heart rate 86 /min Dr. Patricia Mcgowan Work Phone: [facility] Work Phone: 04-12-2022 08:46-0400 Respiratory rate 16 /min Dr. Patricia Mcgowan Work Phone: [facility] Work Phone: 04-12-2022 08:46-0400 SaO2% (BldA) [Mass fraction] 97 % Dr. Patricia Mcgowan Work Phone: [facility] Work Phone: 04-12-2022 08:46-0400 Systolic blood pressure 113 mm[Hg] Dr. Patricia Mcgowan Work Phone: [facility] Work Phone: 04-12-2022 08:46-0400 Body height 177.[address] Patricia Mcgowan Work Phone: [facility] Work Phone: 04-12-2022 08:46-0400 Body mass index (BMI) [Ratio] 38.4 kg/m2 Dr. Patricia Mcgowan Work Phone: [facility] Work Phone: 04-12-2022 08:46-0400 Body weight 121.[address] Patricia Mcgowan Work Phone: [facility] Work Phone: 04-12-2022 08:46-0400 Diastolic blood pressure 71 mm[Hg] Dr. Patricia Mcgowan Work Phone: [facility] Work Phone: 04-12-2022 08:46-0400 Heart rate 86 /min Dr. Patricia Mcgowan Work Phone: [facility] Work Phone: 04-12-2022 08:46-0400 Respiratory rate 16 /min Dr. Patricia Mcgowan Work Phone: [facility] Work Phone: 04-12-2022 08:46-0400 SaO2% (BldA) [Mass fraction] 97 % Dr. Patricia Mcgowan Work Phone: [facility] Work Phone: 04-12-2022 08:46-0400 Systolic blood pressure 113 mm[Hg] Dr. Patricia Mcgowan Work Phone: [facility] Work Phone: 03-29-2022 12:09-0400 SaO2% (BldA) [Mass fraction] 98 % Jaylyn Nieves MD Work Phone: [facility] 03-17-2022 15:50-0400 Diastolic blood pressure 77 mm[Hg] Jaylyn Nieves MD Work Phone: [facility] 03-17-2022 15:50-0400 Systolic blood pressure 120 mm[Hg] Jaylyn Nieves MD Work Phone: [facility] 03-17-2022 14:51-0400 Body height 177.8 cm Jaylyn Nieves MD Work Phone: [facility] 03-17-2022 14:51-0400 Body weight 125.76 kg Jaylyn Nieves MD Work Phone: [facility] 03-17-2022 14:51-0400 Heart rate 101 /min Jaylyn Nieves MD Work Phone: [facility] 03-17-2022 14:51-0400 SaO2% (BldA) [Mass fraction] 98 % Jaylyn Nieves MD Work Phone: [facility] 01-28-2022 02:11-0500 Diastolic blood pressure 89 mm[Hg] Dr. Patricia Mcgowan Work Phone: [facility] Work Phone: 01-28-2022 02:11-0500 Heart rate 96 /min Dr. Patricia Mcgowan Work Phone: [facility] Work Phone: 01-28-2022 02:11-0500 Respiratory rate 18 /min Dr. Patricia Mcgowan Work Phone: [facility] Work Phone: 01-28-2022 02:11-0500 SaO2% (BldA) [Mass fraction] 94 % Dr. Patricia Mcgowan Work Phone: [facility] Work Phone: 01-28-2022 02:11-0500 Systolic blood pressure 158 mm[Hg] Dr. Patricia Mcgowan Work Phone: [facility] Work Phone: 01-28-2022 01:22-0500 Body mass index (BMI) [Ratio] 399.4 kg/m2 Dr. Patricia Mcgowan Work Phone: [facility] Work Phone: 01-28-2022 01:22-0500 Body temperature 97.6 [degF] Dr. Patricia Mcgowan Work Phone: [facility] Work Phone: 01-28-2022 01:22-0500 Body weight [address] Patricia Mcgowan Work Phone: [facility] Work Phone: 01-28-2022 01:11-0500 Diastolic blood pressure 89 mm[Hg] [facility] Work Phone: 01-28-2022 01:11-0500 Heart rate 96 /min [facility] Work Phone: 01-28-2022 01:11-0500 Respiratory rate 18 /min [facility] Work Phone: 01-28-2022 01:11-0500 SaO2% (BldA) [Mass fraction] 94 % [facility] Work Phone: 01-28-2022 01:11-0500 Systolic blood pressure 158 mm[Hg] [facility] Work Phone: 01-28-2022 00:22-0500 Body height 177.8 cm [facility] Work Phone: 01-28-2022 00:22-0500 Body mass index (BMI) [Ratio] 399.4 kg/m2 [facility] Work Phone: 01-28-2022 00:22-0500 Body temperature 97.6 [degF] [facility] Work Phone: 01-28-2022 00:22-0500 Body weight 1263 kg [facility] Work Phone: 10-05-2021 11:00-0500 Diastolic blood pressure 63 mm[Hg] Barb Morton MD Work Phone: [facility] Comment on above: Auto 10-05-2021 11:00-0500 Heart rate 99 /min Barb Morton MD Work Phone: [facility] 10-05-2021 11:00-0500 Systolic blood pressure 91 mm[Hg] Barb Morton MD Work Phone: [facility] Comment on above: Auto 10-05-2021 10:45-0500 Body weight 116.57 kg Barb Morton MD Work Phone: [facility] 05-19-2021 10:00-0400 Diastolic blood pressure 70 mm[Hg] Nii Altman MD Work Phone: [facility] Work Phone: 05-19-2021 10:00-0400 Heart rate 91 /min Nii Altman MD Work Phone: [facility] Work Phone: 05-19-2021 10:00-0400 Respiratory rate 15 /min Nii Altman MD Work Phone: [facility] Work Phone: 05-19-2021 10:00-0400 SaO2% (BldA) [Mass fraction] 96 % Nii Altman MD Work Phone: [facility] Work Phone: 05-19-2021 10:00-0400 Systolic blood pressure 119 mm[Hg] Nii Altman MD Work Phone: [facility] Work Phone: 05-19-2021 08:51-0400 Body temperature 97.11 [degF] Nii Altman MD Work Phone: [facility] Work Phone: 05-19-2021 06:58-0400 Body height 177.8 cm Nii Altman MD Work Phone: [facility] Work Phone: 05-19-2021 06:58-0400 Body mass index (BMI) [Ratio] 38.88 kg/m2 Nii Altman MD Work Phone: [facility] Work Phone: 05-19-2021 06:58-0400 Body weight 122.92 kg Nii Altman MD Work Phone: [facility] Work Phone: 05-11-2021 09:45-0400 Body mass index (BMI) [Ratio] 38.88 kg/m2 [employer] REGULATORY AFFAIRS SPECIALIST - BI SOLUTIONS ARCHITECT Work Phone: [facility] Work Phone: 05-11-2021 09:45-0400 Body weight 122.92 kg Raeann [place] REGULATORY AFFAIRS SPECIALIST - BI SOLUTIONS ARCHITECT Work Phone: [facility] Work Phone: Comment on above: per medical record 05-05-2021 10:22-0400 Body temperature 97.3 [degF] Nii Altman MD Work Phone: [facility] Work Phone: 05-05-2021 10:22-0400 Diastolic blood pressure 82 mm[Hg] Nii Altman MD Work Phone: [facility] Work Phone: 05-05-2021 10:22-0400 Heart rate 74 /min Nii Altman MD Work Phone: [facility] Work Phone: 05-05-2021 10:22-0400 Respiratory rate 15 /min Nii Altman MD Work Phone: [facility] Work Phone: 05-05-2021 10:22-0400 SaO2% (BldA) [Mass fraction] 97 % Nii Altman MD Work Phone: [facility] Work Phone: 05-05-2021 10:22-0400 Systolic blood pressure 158 mm[Hg] Nii Altman MD Work Phone: [facility] Work Phone: 05-05-2021 10:21-0400 Body height 177.8 cm Nii Altman MD Work Phone: [facility] Work Phone: 05-05-2021 10:21-0400 Body mass index (BMI) [Ratio] 38.88 kg/m2 Nii Altman MD Work Phone: [facility] Work Phone: 05-05-2021 10:21-0400 Body weight 122.92 kg Nii Altman MD Work Phone: [facility] Work Phone: Encounters Encounter Date Encounter Type Care Provider Facility Start: 04-30-2025 ambulatory Vick Sky y:[facility] Start: 04-13-2025 End: 04-13-2025 Emergency department patient visit Chetan Powell MD Work Phone: [facility] ED Comment on above: Facial laceration, i nitial encounter (Primary Dx); Fall, initial encounter; Open fracture of nasal bone, initial encounter Start: 04-09-2025 End: 04-09-2025 Emergency department patient visit Dr. Ron Cooley MD Work Phone: -Emergency Department Work Phone: Start: 04-03-2025 End: 04-03-[address] Ron Cooley MD -Laboratory [facility] Start: 04-03-2025 End: 04-03-2025 ambulatory NATASHA GREGORY MD Facility:A Start: 04-03-2025 End: 04-03-2025 ambulatory Ron Cooley Facility:[facility] Start: 04-01-[address] Olivier Santo MD -Speech Therapy Work Phone: Start: 03-26-[address] Olivier Santo MD -Speech Therapy Work Phone: Start: 03-24-2025 End: 03-24-[address] Ron Cooley MD Work Phone: [facility] Work Phone: Start: 03-24-2025 End: 03-24-[address] Jose Perez MD -[facility] Work Phone: Start: 03-24-2025 End: 03-24-2025 ambulatory Ron Cooley Facility:[facility] Start: 03-20-2025 End: 03-20-[address] Vick Santo MD -[facility] Work Phone: Start: 03-20-2025 End: 03-20-2025 ambulatory Vick Santo Facility:[facility] Start: 03-03-2025 End: 03-03-[address] Ron Cooley MD Work Phone: [facility] Work Phone: Start: 03-03-2025 End: 03-03-[address] Jose Perez MD -[facility] Start: 03-03-2025 End: 03-03-2025 ambulatory Ron Cooley Facility:[facility] Start: 02-25-[address] Olivier Santo MD -Speech Therapy Work Phone: Start: 02-20-2025 End: 02-20-[address] Ron Cooley MD Work Phone: [facility] Work Phone: Start: 02-20-2025 End: 02-20-[address] Natasha Gregory MD -[facility], [facility] Start: 02-20-2025 End: 02-20-2025 ambulatory Natasha Gregory Facility:[facility] Start: 02-14-2025 End: 02-14-2025 Emergency department patient visit Dr. Ron Cooley MD Work Phone: -Emergency Department Work Phone: Start: 02-06-2025 End: 02-06-[address] Vick Santo MD -[facility] Work Phone: Start: 02-06-2025 End: 02-06-2025 ambulatory Vick Santo Facility:[facility] Start: 01-21-2025 End: 01-21-[address] Ron Cooley MD Work Phone: [facility] Work Phone: Start: 01-21-2025 End: 01-21-[address] Ron Cooley MD -Radiology, [place] Work Phone: Start: 01-21-2025 End: 01-21-2025 ambulatory Ron Cooley Facility:[facility] Start: 12-10-2024 End: 12-10-[address] Vick Santo MD -[facility] Work Phone: Start: 12-10-2024 End: 12-10-2024 ambulatory Ron Cooley Facility:[facility] Start: 12-10-2024 End: 12-10-2024 ambulatory Ron Cooley Facility:[facility] Start: 12-05-2024 End: 12-05-2024 Emergency department patient visit Dr. Estuardo Mccormack DO -Emergency Department Work Phone: Start: 12-04-2024 End: 12-04-[address] [facility] Start: 12-04-2024 End: 12-04-2024 ambulatory Ron Cooley Facility:[facility] Start: 12-02-2024 End: 12-02-[address] [facility] Start: 12-02-2024 End: 12-02-2024 ambulatory Ron Cooley Facility:[facility] Start: 10-28-2024 End: 10-28-[address] [facility] Start: 10-28-2024 End: 10-28-2024 ambulatory Natasha Gregory Facility:[facility] Start: 10-12-2024 End: 10-12-2024 Emergency department patient visit Dr. Osman Farooq MD -Emergency Department Work Phone: Start: 09-27-2024 End: 09-27-2024 ambulatory Ron Cooley Facility:[facility] Start: 09-20-2024 End: 09-20-2024 ambulatory [facility] Facility:[facility] Start: 09-02-2024 End: 09-02-2024 ambulatory [facility] Facility:[facility] Start: 09-02-2024 End: 09-02-2024 ambulatory [facility] Facility:[facility] Start: 08-07-2024 End: 08-07-2024 ambulatory Ron Cooley Facility:[facility] Start: 06-27-2024 End: 06-27-2024 ambulatory Ron Cooley Facility:[facility] Start: 06-27-2024 End: 06-27-2024 ambulatory Natasha Colt Facility:[facility] Start: 06-10-2024 End: 06-10-2024 ambulatory Whitley Traning Facility:[facility] Start: 03-25-2024 End: 03-25-[address] Ron Cooley Work Phone: [facility] Work Phone: Start: 03-25-2024 End: 03-25-[address] Ron Cooely Work Phone: [facility] Work Phone: Start: 03-25-2024 End: 03-25-[address] Ron Cooley Work Phone: [facility] Work Phone: Start: 02-27-2024 End: 02-27-[address] Ron Cooley Work Phone: [facility] Work Phone: Start: 02-27-2024 End: 02-27-[address] Ron Cooley Work Phone: [facility] Start: 01-30-2024 End: 01-30-[address] Ron Coloey Work Phone: [facility] Work Phone: Start: 01-30-2024 End: 01-30-[address] Ron Cooley Work Phone: [facility] Work Phone: Start: 12-26-2023 End: 12-26-[address] Ron Cooley Work Phone: [facility] Work Phone: Start: 12-26-2023 End: 12-26-[address] Ron Cooley Work Phone: [facility] Work Phone: Start: 12-15-2023 End: 12-15-[address] Ron Cooley Work Phone: [facility] Work Phone: Start: 12-15-2023 End: 12-15-[address] Ron Cooley Work Phone: [facility] Work Phone: Start: 11-23-2023 End: 11-23-[address] Ron Cooley Work Phone: [facility] Start: 11-23-2023 End: 11-23-[address] Ron Cooley Work Phone: [facility] Work Phone: Start: 11-22-2023 End: 11-22-[address] Ron Cooley Work Phone: [facility] Work Phone: Start: 11-22-2023 End: 11-22-[address] Ron Cooley Work Phone: [facility] Work Phone: Start: 10-31-2023 End: 10-31-[address] Ron Cooley Work Phone: [facility] Work Phone: Start: 10-31-2023 End: 10-31-[address] Ron Cooley Work Phone: [facility] Start: 09-07-2023 End: 09-07-[address] Ron Cooley Work Phone: [facility] Work Phone: Start: 08-07-2023 End: 08-07-[address] Ron Cooley Work Phone: [facility] Work Phone: Start: 08-03-2023 End: 08-03-[address] Ron Cooley Work Phone: [facility] Work Phone: Start: 06-21-2023 Non-patient / Non-visit Dr. Rimma Cooley Work Phone: [facility] Start: 06-21-2023 End: 06-21-[address] Ron Cooley Work Phone: [facility] Work Phone: Start: 06-21-2023 End: 06-21-[address] [facility] Work [facility]: Start: 05-18-2023 End: 05-18-[address] Ron Cooley Work Phone: [facility] Work Phone: Start: 05-18-2023 End: 05-18-[address] Ron Cooley Work Phone: [facility] Work Phone: Start: 05-09-2023 End: 05-09-[address] Ron Cooley Work Phone: [facility] Work Phone: Start: 05-09-2023 End: 05-09-[address] Ron Cooley Work Phone: [facility] Start: 05-02-2023 End: 05-02-[address] Ron Cooley Work Phone: [facility] Work Phone: Start: 05-02-2023 End: 05-02-[address] Ron Cooley Work Phone: [facility] Work Phone: Start: 05-02-[address] Ron Cooley Work Phone: [facility] Start: 05-01-2023 End: 05-01-[address] Ron Cooley Work Phone: [facility] Work Phone: Start: 05-01-2023 End: 05-01-[address] Ron Cooley Work Phone: [facility] Start: 04-12-2023 End: 04-12-[address] Ron Cooley Work Phone: [facility] Start: 04-11-2023 End: 04-11-[address] Ron Cooley Work Phone: [facility] Start: 02-21-2023 End: 02-21-2023 ambulatory [facility] Work Phone: Start: 02-21-2023 End: 02-21-2023 Patient encounter procedure [facility] Start: 02-14-2023 Telephone encounter Jaylyn peck MD Work Phone: Neurology Comment on above: Patient Update (Incr eased falls, aggression) Start: 02-11-2023 End: 02-11-2023 [facility] Start: 01-10-2023 Telephone encounter Jaylyn peck MD Work Phone: Neurology Comment on above: Patient Update Start: 01-04-2023 End: 01-04-2023 ambulatory [facility] Work Phone: Start: 01-04-2023 End: 01-04-2023 Patient encounter procedure [facility] Start: 12-12-2022 End: 12-12-2022 ambulatory Leni Ruiz APRN.BI SOLUTIONS ARCHITECT Work Phone: Neurology Comment on above: TAMULOSIN Start: 12-12-2022 End: 12-12-2022 Office outpatient new 20 minutes Leni Ruiz APRN.[employer]UT[employer] ARCHITECT Work Phone: Neurology Comment on above: Parkinsonism, unspec ified Parkinsonism type (HCC) (Primary Dx); Orthostatic hypotension; Anxiety Start: 10-10-2022 Telephone encounter Jaylyn peck MD Work Phone: Neurology Comment on above: Patient Update (Incr eased shaking in AM ) Start: 10-04-2022 End: 10-04-2022 ambulatory KORI BEBB Facility:[facility] Start: 10-04-2022 End: 10-04-2022 ambulatory [facility] PT, DPT Work Phone: [facility] Comment on above: Parkinsonism, unspec ified Parkinsonism type (HCC) (Primary Dx); Gait instability; Leg weakness, bilateral; Imbalance Start: 09-16-2022 End: 09-16-2022 ambulatory [facility] Work Phone: Start: 09-16-2022 End: 09-16-2022 Patient encounter procedure [facility] Start: 09-15-2022 End: 09-15-2022 ambulatory Jaylyn Nieves MD Work Phone: Neurology Comment on above: CYMBALTA Start: 09-12-2022 Telephone encounter Jaylyn peck MD Work Phone: [facility] Comment on above: Other (PD Symptoms W orsening) Start: 09-02-2022 End: 09-02-2022 [facility] Aleida Ramirez MD Work Phone: [facility] Comment on above: MELISSA (generalized anx iety disorder) (Primary Dx); Depression, unspecified depression type; Parkinsonism, unspecified Parkinsonism type (HCC) Start: 08-25-2022 End: 08-25-2022 ambulatory [facility] Facility:[facility] Start: 08-25-2022 End: 08-25-2022 ambulatory Kori Ryder PT, DPT Work Phone: [facility] Comment on above: Parkinsonism, unspec ified Parkinsonism type (HCC) (Primary Dx); Gait instability; Leg weakness, bilateral; Imbalance Start: 08-11-2022 End: 08-11-2022 ambulatory [facility] Facility:[facility] Start: 08-08-2022 ambulatory Jaylyn jennings MD Work Phone: Neurology Comment on above: Dr. Suzie Nieves at 07/21 2:20 PM Start: 08-04-2022 End: 08-04-2022 ambulatory JAYLYN NIEVES Facility:[facility] Start: 08-04-2022 End: 08-04-2022 Patient encounter procedure Jaylyn Nieves MD Work Phone: Neurology Comment on above: Parkinsonism, unspec ified Parkinsonism type (HCC) (Primary Dx); Depression, unspecified depression type; Anxiety; Orthostatic lightheadedness; Dysphagia, unspecified type Start: 08-01-2022 End: 08-01-[address] Patricia Mcgowan Work Phone: [facility] Work Phone: Start: 08-01-2022 End: 08-01-[address] Patricia Mcgowan [facility] Start: 07-21-2022 Telephone encounter Jaylyn peck MD Work Phone: Neurology Comment on above: Appointment (Earlier appointment request d/t worsening symptoms ) Start: 06-21-2022 End: 06-21-[address] Patricia Mcgowan Work Phone: [facility] Start: 06-20-2022 End: 06-20-[address] Patricia Mcgowan Work Phone: [facility] Start: 05-18-2022 Refill Jaylyn jennings MD Work Phone: Neurological [facility] Comment on above: Refill Request Start: 05-16-2022 Non-patient / Non-visit Dr. Danya Mcgowan Work Phone: [facility] Start: 05-16-2022 End: 05-16-[address] Patricia Mcgowan Work Phone: [facility] Start: 04-25-2022 End: 04-25-[address] Patricia Mcgowan Work Phone: [facility] Start: 04-12-2022 End: 04-12-[address] Patricia Mcgowan Work Phone: [facility] Start: 04-07-2022 End: 04-07-2022 Patient encounter procedure [facility] Start: 03-29-2022 End: 03-29-2022 ambulatory Maine Medel PT, DPT Work Phone: [facility] Comment on above: Parkinson disease (H CC) (Primary Dx) Start: 03-29-2022 End: 03-29-2022 Patient encounter procedure Sakina Ro CCC-LINE MAINTENANCE SUPERVISOR Work Phone: [facility] Comment on above: Parkinsonism, unspec ified Parkinsonism type (HCC) (Primary Dx); Dysphagia, oropharyngeal phase; Dysarthria Gait instability (Pr imary Dx); Parkinsonism, unspecified Parkinsonism type (HCC); Dysphasia; Oropharyngeal dysphagia; Decreased activities of daily living (ADL) Start: 03-23-2022 Telephone encounter Jaylyn peck MD Work Phone: Neurology Comment on above: Upcoming Appointment (Pre-rooming phone call) Start: 03-17-2022 End: 03-17-2022 ambulatory [facility] Facility:[facility] Start: 03-17-2022 End: 03-17-2022 Patient encounter procedure Jaylyn Nieves MD Work Phone: Neurology Comment on above: Parkinsonism, unspec ified Parkinsonism type (HCC) (Primary Dx); Essential tremor; Dysphagia, unspecified type; Gait instability Start: 03-10-2022 End: 03-10-2022 Patient encounter procedure [facility] Start: 02-10-2022 Documentation procedure Jaspreet Ríos [facility], Neuroscience Start: 01-28-2022 End: 01-28-2022 Emergency department patient visit [facility] Start: 12-31-2021 End: 12-31-2021 Patient encounter procedure [facility] Start: 12-21-2021 End: 12-21-2021 ambulatory GOLDEN CHACE [facility] Start: 12-21-2021 End: 12-21-2021 Office outpatient visit 15 minutes Barb Morton MD Work Phone: [facility] Neuroscience Comment on above: Parkinson's disease (HCC) (Primary Dx) Start: 12-15-2021 End: 12-16-2021 ambulatory PATRICIA TRISTEN [facility] Start: 12-15-2021 End: 12-16-2021 ambulatory [facility] Start: 12-05-2021 ambulatory [facility] Start: 11-18-2021 ambulatory [facility] Start: 11-15-2021 Patient encounter procedure [facility] Start: 11-09-2021 Marisela Qureshi MA [facility], Neuroscience Start: 11-05-2021 Documentation procedure Jim Bradford RN [facility] Physician [facility], Neuroscience Start: 11-03-2021 Documentation procedure Jaspreet Ríos [facility] Physician [facility], Neuroscience Start: 11-01-2021 End: 11-02-2021 ambulatory [facility] Start: 10-28-2021 End: 11-01-2021 ambulatory Barb Morton MD Work Phone: [facility] Comment on above: Tremor; Impaired mobility and activities of daily living; Impairment of balance Start: 10-05-2021 End: 10-05-2021 ambulatory [facility] Start: 10-05-2021 End: 10-05-2021 Office outpatient visit 25 minutes Barb Morton MD Work Phone: [facility] Physician [facility], Neuroscience Comment on above: Tremor (Primary Dx) Start: 09-27-2021 Transcribe Orders Patricia Mcgowan MD Work Phone: [facility] Physician [facility], Neuroscience Comment on above: Tremor, essential (P rimary Dx) Start: 05-19-2021 End: 05-19-2021 Subsequent hospital visit by physician Nii Altman MD Work Phone: [facility] General Surgery Comment on above: Arrived Start: 05-11-2021 End: 05-11-2021 Patient encounter status Raeann Holland REGULATORY AFFAIRS SPECIALIST - BI SOLUTIONS ARCHITECT Work Phone: [facility] Start: 05-11-2021 End: 05-11-2021 Subsequent hospital visit by physician Raeann Holland REGULATORY AFFAIRS SPECIALIST - BI SOLUTIONS ARCHITECT Work Phone: [facility] Comment on above: Abnormal electrocard iogram (ECG) (EKG); Shortness of breath; Pre-op testing; Abnormal EKG Start: 05-05-2021 End: 05-05-2021 Patient encounter status Nii Altman MD Work Phone: [facility] Start: 05-05-2021 End: 05-05-2021 Subsequent hospital visit by physician Nii Altman MD Work Phone: [facility] Comment on above: Pre-op testing (Prim sophie Dx); Abnormal EKG; Shortness of breath Start: 04-12-2021 Patient encounter status [facility] Work Phone: Start: 08-14-2006 End: 08-14-2006 Patient encounter procedure Wyatt Noble Work Phone: [facility] Start: 08-14-2006 Results Only Wyatt Valleo x Work Phone: [facility] Start: 02-03-2006 End: 02-03-2006 Patient encounter procedure Wyatt Noble Work Phone: [facility] [facility] Start: 02-03-2006 Results Only Wyatt Valleo x Work Phone: [facility] Procedures Date Procedure Procedure Detail Performing Clinician Start: 04-13-2025 Ct maxillofacial w/o contrast material Chetan Powell MD Work Phone: Start: 04-13-2025 Simple repair f/e/e/ n/l/m 2.6cm-5.0 cm Chetan Powell MD Work Phone: Start: 04-09-2025 CT cervical spine wi thout contrast Dr. Ron Cooley MD Work Phone: Start: 04-09-2025 CT of head without contrast Dr. Ron Cooley MD Work Phone: Start: 04-03-2025 Vitamin D, 25-hydrox y measurement Dr. Ron Cooley MD Work Phone: Comment on above: Vitamin D StatusDefi ciency: <20 ng/mL (50nmol/L)Insufficiency: 20-30 ng/mL (50-75 nmol/L)Sufficiency: 30-100 ng/mL (75-250 nmol/L)Toxicity: >100 ng/mL (>250 nmol/L) Start: 03-24-2025 CT of chest without contrast Dr. Ron Cooley MD Work Phone: Start: 02-20-2025 Urine microalbumin/creatinine ratio measurement Dr. Ron Cooley MD Work Phone: Start: 02-14-2025 CT cervical spine wi thout contrast Dr. Ron Cooley MD Work Phone: Start: 02-14-2025 CT of head without contrast Dr. Ron Cooley MD Work Phone: Start: 01-21-2025 X-ray of chest, PA a nd lateral views Dr. Ron Cooley MD Work Phone: Start: 12-10-[address] Ron Cooley MD Work Phone: Start: 12-10-2024 Urine microalbumin/creatinine ratio measurement Dr. Ron Cooley MD Work Phone: Start: 12-05-2024 CT cervical spine wi thout contrast Dr. Ron Cooley MD Work Phone: Start: 12-05-2024 CT of head without contrast Dr. Ron Cooley MD Work Phone: Start: 12-04-2024 Measurement of renal function Dr. Ron Cooley MD Work Phone: Comment on above: GFR Calc Start: 12-04-2024 Vitamin D, 25-hydrox y measurement Dr. Ron Cooley MD Work Phone: Comment on above: Vitamin D 25(OH) Sta tus Range Deficiency <20 ng/mL (50nmol/L) Insufficiency 20 - 30 ng/mL (50 - 75 nmol/L) Sufficiency 30 - 100 ng/mL (75 - 250 nmol/L) Toxicity >100 ng/mL (>250 nmol/L) Start: 12-02-2024 X-ray of chest, PA a nd lateral views Dr. Ron Cooley MD Work Phone: Start: 10-12-2024 X-ray of chest posteroanterior view Dr. Ron Cooley MD Work Phone: Start: 01-30-2024 Plain chest X-ray Dr. Chetan Cooley Work Phone: Start: 12-26-2023 Plain chest X-ray Dr. Chetan Cooley Work Phone: Start: 12-26-2023 End: 12-26-2023 Radiologic examination of knee Dr. Ron Cooley Work Phone: Start: 12-15-2023 Plain chest X-ray Dr. Chetan Cooley Work Phone: Start: 11-22-2023 Plain chest X-ray Dr. Chetan Cooley Work Phone: Start: 05-18-2023 MRI of brain without contrast Dr. Ron Cooley Work Phone: Start: 05-18-2023 MRI of cervical spine Maria Isabel Cooley Work Phone: Start: 05-18-2023 MRI of lumbar spine Dr. Ron Cooley Work Phone: Start: 02-11-2023 CT of head without contrast Start: 02-11-2023 Radiography of ankle Start: 09-16-2022 Radiologic examinati on of knee Start: 03-11-2022 Adult depression scr eening assessment Jaylyn Nieves MD Work Phone: Start: 12-31-2021 Plain chest X-ray Start: 05-19-2021 OPERATIVE REPORT 3m Sca nning Start: 05-19-2021 Ecg routine ecg w/le ast 12 lds w/i&r Nicholas Dobbins MD Work Phone: Start: 05-19-2021 Gluc bld gluc mntr d ev cleared fda spec home use Nii Altman MD Work Phone: Start: 05-11-2021 ECHOCARDIOGRAM PHARMACOLOGICAL STRESS TEST Raeann Willoughby [place] REGULATORY AFFAIRS SPECIALIST - [employer] Work Phone: Start: 05-05-2021 Antibody screen Nii Charlton MD Work Phone: Start: 05-05-2021 Blood count complete automated Raeann Case [facility] [employer] Work Phone: Start: 05-05-2021 Blood typing serologic abo Raeann Willoughby [place] REGULATORY AFFAIRS SPECIALIST [employer] Work Phone: Start: 05-05-2021 Ecg routine ecg w/le ast 12 lds w/i&r Raeann [place] REGULATORY AFFAIRS SPECIALIST [employer] Work Phone: Start: 08-14-2006 CONVERTED SURGICAL PATHOLOGY Wyatt Noble Work Phone: Start: 02-03-2006 CONVERTED SURGICAL PATHOLOGY Wyatt Noble Work Phone: Plan of Treatment Date Care Activity Detail Author Start: 12-05-2034 DTaP/Tdap/Td Vaccines (4 - Td or Tdap) DTaP/Tdap/Td Vaccines (4 - Td or Tdap) [facility] Start: 01-25-2031 Tetanus vaccination Tetanus: Every 10yrs [facility] Start: 04-09-2025 [facility] Start: 03-24-2025 CT Chest WO contrast [facility] Start: 03-24-2025 CT of chest without contrast Chest without Contrast [facility] Start: 02-14-2025 [facility] Start: 01-04-2025 Patient referral [facility] Work Phone: Start: 12-11-2024 Patient referral [facility] Work Phone: Start: 12-05-2024 [facility] Start: 12-05-2024 Simple repair f/e/e/n/l/m 2.6cm-5.0 cm RPR F/E/E/N/L/M 2.6-5.0 CM [facility] Start: 11-11-2024 COVID-19 Vaccine (8 - 2024-25 season) COVID-19 Vaccine ( season) [facility] Start: 10-12-2024 Incentive spirometry [facility] Start: 10-12-2024 End: 10-12-2024 [facility] Start: 04-02-2024 Patient referral [facility] Work Phone: Start: 03-25-2024 Acetylcholine receptor blocking Ab [Presence] in Serum [facility] Start: 03-25-2024 Acetylcholine receptor modulating antibody measurement [facility] Start: 11-23-2023 Serum immunofixation [facility] Start: 11-23-2023 Urine immunofixation [facility] Start: 05-09-2023 Greenview and lambda light chains [facility] Start: 05-09-2023 Thiamine measurement [facility] Start: 03-11-2023 Adult depression screening assessment DEPRESSION SCREENING [facility] Start: 11-20-2022 ADVANCE DIRECTIVE DISCUSSION ADVANCE DIRECTIVE DISCUSSION [facility] Start: 11-20-2022 DEPRESSION ASSESSMENT DEPRESSION ASSESSMENT [facility] Start: 07-21-2022 Influenza vaccination INFLUENZA (#1) [facility] Start: 05-05-2022 Creatinine measurement Creatinine monitoring [facility] Work Phone: Start: 05-05-2022 Diabetes: Estimated Glomerular Filtration Rate for Kidney [facility] Diabetes: Estimated Glomerular Filtration Rate for Kidney Health [facility] Start: 05-05-2022 Potassium monitoring Potassium monitoring [facility] Work Phone: Start: 12-21-2021 End: 12-21-2021 Telemedicine consultation with patient 12/21/2021 Telemedicine Neurology Barb [place] MD [address] [place] [address] [facility], Neuroscience Start: 12-15-2021 End: 12-15-2021 Patient encounter procedure 12/15/2021 Appointment Radiology Barb [place] MD [address] [facility] [address] [place] [address] [facility] Nuclear Medicine Start: 11-20-2021 ADVANCE DIRECTIVE DISCUSSION ADVANCE DIRECTIVE DISCUSSION [facility] Start: 11-20-2021 DEPRESSION ASSESSMENT DEPRESSION ASSESSMENT [facility] Start: 11-01-2021 End: 11-01-2021 Patient encounter procedure 11/01/2021 Appointment Radiology Barb Morton MD [address] [facility] [address] [place] [address] [facility] [address] Start: 06-03-2021 End: 06-03-2021 Patient encounter procedure 06/03/2021 Office Visit Neurosurgery Nii Altman MD [address] [place] [phone] [facility] Start: 05-19-2021 End: 05-19-2021 Patient encounter procedure 05/19/2021 Appointment General Surgery Nii Altman MD [address] [place] [phone] [facility] Start: 05-05-2021 End: 07-04-2021 ECHO Pharmacological Stress Test ECHO Pharmacological Stress Test Echocardiography Routine Pre-op testing Abnormal EKG Shortness of breath Expected: 05/05/2021 (Approximate), Expires: 07/04/2021 [facility] Work Phone: Comment on above: Expected: 05/05/2021 (Approximate), Expi res: 07/04/2021 Start: 07-21-2020 Influenza vaccination INFLUENZA (#1) [facility] Start: 05-12-2019 Annual Wellness Visit (AWV) Annual Wellness Visit (AWV) [facility] Work Phone: Start: 2009 ADVANCE DIRECTIVE DISCUSSION ADVANCE DIRECTIVE DISCUSSION [facility] Start: 2009 Fall risk assessment Falls Risk Assessment [facility] Start: 2009 Pneumococcal 65+ years Vaccine (1 of 1 - PPSV23) Pneumococcal 65+ years Vaccine (1 of 1 - PPSV23) [facility] Work Phone: Start: 2009 PNEUMOCOCCAL: 65+ (1 - PCV) PNEUMOCOCCAL: 65+ (1 - PCV) [facility] Start: 2009 PNEUMOVAX AGE 65 AND OVER WITH 5YR LOOKBACK (#1) PNEUMOVAX AGE 65 AND OVER WITH 5YR LOOKBACK (#1) [facility] Start: 1994 Shingles Vaccine (1 of 2) Shingles Vaccine (1 of 2) [facility] Work Phone: Start: 1994 SHINGRIX VACCINE (1 of 2) SHINGRIX VACCINE (1 of 2) [facility] Start: 1994 Tuberculosis screening COLORECTAL CANCER SCREENING,SEE MODIFIER [facility] Start: 1989 DIABETES SCREEN DIABETES SCREEN [facility] Start: 1979 LIPID SCREEN LIPID SCREEN [facility] Start: 1963 DTaP/Tdap/Td vaccine (1 - Tdap) DTaP/Tdap/Td vaccine (1 - Tdap) [facility] Work Phone: Start: 1963 Urine microalbumin profile DTAP,TDAP,TD (1 - Tdap) [facility] Start: 1962 Diabetes: Urine Albumin-Creatinine Ratio for Kidney Health Diabetes: Urine Albumin-Creatinine Ratio for Kidney Health [facility] Start: 1962 HEPATITIS C SCREENING HEPATITIS C SCREENING [facility] Start: 1962 Hepatitis C screening Hepatitis C Screening [facility] Start: 1956 COVID-19 Vaccine (1) COVID-19 Vaccine (1) [facility] Work Phone: Start: 1956 Depression screening using PHQ-9 (Patient Health Questionnaire 9) score [facility] Start: 1954 Diabetic foot examination Foot Exam [facility] Start: 1954 Lipid panel Lipid screen [facility] Work Phone: Start: 1954 Microalbumin measurement, urine, quantitative Urine Microalbumin [facility] Start: 1954 Ophthalmic examination and evaluation Ophthalmology Exam [facility] Start: 1947 History and physical examination, annual for health maintenance Wellness Visit [facility] Start: 1944 Hemoglobin A1c measurement A1C [facility] Start: 1944 Hepatitis C screening Hepatitis C screen [facility] Work Phone: Start: 1944 Medicare Annual Wellness (AWV) Medicare Annual Wellness (AWV) [facility] Albumin [Moles/volum e] in Serum or Plasma [facility] Albumin/Globulin ratio [facility] Blood glucose - POCT [facility] Work Phone: Comment on above: As Needed until discontinued starting End: 05-19-2021 Creatinine [Mass/volume] in Serum or Plasma Creatinine, serum Lab STAT One Time for 1 Occurrences starting 05/19/2021 until 05/19/2021 [facility] Work Phone: Comment on above: One Time for 1 Occurrences starting 04/22 until 05/19/2021 End: 10-05-2022 CT of head without contrast CT Head Or Brain Without Contrast Imaging Routine Tremor 1 Occurrences starting 10/05/2021 until 10/05/2022 [facility] Comment on above: 1 Occurrences starting 10/05/2021 until 10/05/2022 EKG 12 Lead [facility] Work Phone: Electrophoresis: [id number] [facility] Electrophoresis: aamir ma globulin [facility] Globulin measurement [facility] IgA [Mass/volume] in Serum or Plasma [facility] IgG [Mass/volume] in Serum or Plasma [facility] IgM [Mass/volume] in Serum or Plasma [facility] End: 05-19-2021 Intermittent pulse oximetry Pulse Oximetry Spot Check Respiratory Care Routine One Time for 1 Occurrences starting 05/19/2021 until 05/19/2021 [facility] Work Phone: Comment on above: One Time for 1 Occurrences starting 04/22 until 05/19/2021 Greenview/lambda light c winsome ratio [facility] Lambda light chains. free [Mass/volume] in Serum or Plasma [facility] MR Brain WO and W contrast IV [facility] MR Brain WO contrast [facility] MR Cervical spine [facility] MR Lumbar spine [facility] End: 05-11-2021 Nasal Cannula Oxygen Nasal Cannula Oxygen Respiratory Care Routine As Needed until discontinued starting 05/11/2021 [facility] Work Phone: Comment on above: As Needed until discontinued starting End: 10-05-2022 NM Brain Datscan SPECT CT Single Area Single Day NM Brain Datscan SPECT CT Single Area Single Day Imaging Routine Tremor 1 Occurrences starting 10/05/2021 until 10/05/2022 [facility] Work Phone: Comment on above: 1 Occurrences starting 10/05/2021 until 10/05/2022 Oxygen therapy [[facility] Data Set] Initiate Oxygen Therapy Protocol Respiratory Care Routine Daily until discontinued starting 05/19/2021 [facility] Work Phone: Comment on above: Daily until discontinued starting 2020 Patient Education [facility] Work Phone: Patient referral [facility] Work Phone: End: 05-19-2021 Potassium w/ Reflex to Magnesium Potassium w/ Reflex to Magnesium Lab Routine One Time for 1 Occurrences starting 05/19/2021 until 05/19/2021 [facility] Work Phone: Comment on above: One Time for 1 Occurrences starting 04/22 until 05/19/2021 End: 05-19-2021 , urine POCT , urine POCT Point of Care Testing Routine One Time for 1 Occurrences starting 05/19/2021 until 05/19/2021 [facility] Work Phone: Comment on above: One Time for 1 Occurrences starting 04/22 until 05/19/2021 Protein electrophore sis panel - Serum or Plasma [facility] End: 05-19-2021 Protime-INR Protime-INR Lab STAT One Time for 1 Occurrences starting 05/19/2021 until 05/19/2021 [facility] Work Phone: Comment on above: One Time for 1 Occurrences starting 04/22 until 05/19/2021 PT PLAN OF CARE CERTIFICATION PT PLAN OF CARE CERTIFICATION Procedures Routine Parkinson disease (HCC) Ordered: 03/29/2022 [facility] Work Phone: Comment on above: Ordered: 03/29/2022 Serum immunofixation [facility] SPEECH PLAN OF CARE CERTIFICATION SPEECH PLAN OF CARE CERTIFICATION Procedures Routine Parkinsonism, unspecified Parkinsonism type (HCC) Dysphagia, oropharyngeal phase Dysarthria Ordered: 03/29/2022 [facility] Work Phone: Comment on above: Ordered: 03/29/2022 Spirometry panel Incentive mariann metry Respiratory Care Routine Q1H PRN until discontinued starting 05/19/2021 [facility] Work Phone: Comment on above: Q1H PRN until discontinued starting 04/22 Urine immunofixation [facility] Urine kappa light ch ain measurement [facility] Immunizations Immunization Date Immunization Notes Care Provider Fa cility 12-05-2024 tetanus toxoid, redu aman diphtheria toxoid, and acellular pertussis vaccine, adsorbed Dr. Ron Cooley MD Work Phone: [facility] Payers Date Payer Category Payer Private Health Insurance [facility] [id number] 2025 Unknown [id number] 2024 Self-pay [id number] 2021 Unknown [employer] [facility] [employer] [place] [id number] 2021-Present [phone] [address] [place] [address] [id number] .[id number] 2021 Unknown [id number] 2021 Unknown [id number]. 1.13.385.[address] [facility] ( and others) [id number] [id number] .7.3.136800.315 2009 Medicare [id number] [id number] .7.3.333174.315 2009 Medicare [id number]. 1.13.385.2 .7.3.650826.315 2009 Medicare [id number] 1.2.840.547261.1.13.239.2 .7.3.282809.315 2002 Self-pay [id number] 1.2.840.185907.1.13.159.2 .7.3.676227.315 1944 Unknown [id number] 2.16.840.1.029942.3.579.2 .900 1944 Unknown [id number] 2.16.840.1.591603.3.579.2 .900 1944 Unknown [id number] 2.16.840.1.416448.3.579.2 .900 1944 Unknown [id number] 2.16.840.1.199244.3.579.2 .900 1944 Unknown [id number] 2.16.840.1.951091.3.579.2 .900 1944 Unknown [id number] 2.16.840.1.869734.3.579.2 .900 1944 Unknown [id number] 2.16.840.1.417127.3.579.2 .900 1944 Unknown [id number] 2.16.840.1.037226.3.579.2 .900 1944 Unknown [id number] 2.16.840.1.404069.3.579.2 .900 1944 Unknown [id number] 2.16.840.1.366511.3.579.2 .627 1944 Unknown [id number] 2.16.840.1.076810.3.579.2 .627 Unknown [id number] 2.16.840.1.451919.3.579.2 .462 Unknown [id number] 2.16.840.1.125939.3.579.2 .462 Unknown [id number] 2.16.840.1.316474.3.579.2 .462 Unknown [id number] 2.16840.1.037410.3.579.2 .462 Unknown [id number] 2.16.840.1.722331.3.579.2 .462 Unknown [id number] 2.16.840.1.422702.3.579.2 .462 Unknown [id number] 2.16.840.1.044462.3.579.2 .462 Unknown [id number] 2.16.840.1.275422.3.579.2 .462 Unknown [id number] 2.16.840.1.076648.3.579.2 .462 Unknown [id number] 2.16.840.1.545675.3.579.2 .462 Unknown [id number] 2.16.840.1.676223.3.579.2 .462 Unknown [id number] 2.16.840.1.060412.3.579.2 .462 Unknown [id number] 2.16.840.1.883789.3.579.2 .462 Unknown [id number] 2.16.840.1.967785.3.579.2 .462 Unknown [id number] 2.16.840.1.533891.3.579.2 .462 Unknown [id number] 2.16.840.1.522235.3.579.2 .462 Unknown [id number] 2.16.840.1.268899.3.579.2 .462 Unknown [id number] 2.16.840.1.149413.3.579.2 .462 Unknown [id number] 2.16.840.1.753086.3.579.2 .462 Unknown [id number] 2.16.840.1.308459.3.579.2 .462 Unknown [id number] 2.16.840.1.555886.3.579.2 .462 Unknown [id number] 2.16.840.1.083104.3.579.2 .462 Unknown [id number] 2.16.840.1.895737.3.579.2 .462 Unknown [id number] 2.16.840.1.922766.3.579.2 .462 Unknown [id number] 2.16.840.1.778102.3.579.2 .462 Social History Date Type Detail Facility Tobacco smoking stat [facility] Unknown if ever smoked [facility] Start: 1945 Sex Assigned At Not on file [facility] Start: 05-05-2021 End: 04-09-2025 Tobacco smoking status NJIS Former smoker [facility] Work Phone: Start: 11-20-1948 End: 11-20-1998 History of tobacco use Current smoker [facility] Start: 11-20-1947 End: 11-20-1998 History of tobacco use Cigarette Smoker [facility] Start: 05-05-2021 End: 11-08-2022 Cigarettes smoked current (pack per day) - Reported [facility] Work Phone: Start: 05-05-2021 End: 08-04-2022 Tobacco use and exposure Never used [facility] Start: 05-05-2021 End: 11-08-2022 Alcohol intake Current non-drinker of alcohol (finding) [facility] Work Phone: Start: 11-15-2021 End: 09-02-2022 Exposure to SARS-CoV-2 (event) Not sure [facility] Start: 01-28-2022 End: 08-07-2023 Tobacco smoking status NHIS Tobacco smoking consumption unknown [facility] Start: 10-05-2021 End: 12-12-2022 Alcohol intake Lifetime non-drinker (finding) [facility] Start: 1945 Sex Assigned At Male [facility] Start: 08-25-2021 History SDOH Alcohol Frequency 1 [facility] Start: 07-25-2022 End: 08-04-2022 Exposure to SARS-CoV-2 (event) Yes [facility] Start: 06-20-2022 End: 02-03-2025 Sex Male (finding) [facility] Start: 11-08-2022 End: 04-13-2025 Alcohol Use Disorder Identification Test - Consumption [AUDIT-C] [facility] How often to you hav e a drink containing alcohol? Never [facility] How many standard dr inks containing alcohol do you have on a typical day? Patient does not drink [facility] Medical Equipment Procedure Code Equipment Code Equipment Origin al Text Equipment Identifier Dates [id number] Start: 01-15-2018 SURE COMFORT PEN NEEDLES 31G X 8 [facility] [id number] Start: 12-28-2017 blood sugar diagnostic (FreeStyle Lite Strips) strips [id number] Start: 01-15-2018 pen needle, diab etic 31 gauge x 5/16 Ndle [id number] Start: 12-28-2017 Functional Status Date Assessment Result Facility 04-13-2025 Total score [AUDIT-C] 0 04/13/20 8:48 PM EDT Cielo Valverde RN [facility] Mental Status Date Assessment Result Facility 10-12-2024 Cognitive function Awake;Alert;A ppropriate;Follow s Commands [facility] Work Phone: 01-28-2022 Cognitive function Level Of Cons ciousness Awake;Alert;Appropriate;Follow s Commands [facility] Work Phone: Clinical Notes 05-05-2021 to 04-13-2025 Discharge InstructionsAttachmentsChetan Powell MD - 04/13/2025 8:38 PM Dionna Valverde RN - 04/13/2025 8:38 PM Dionna Valverde RN - 04/13/2025 8:38 PM EDT Note Date & Type Note Facility 04-13-2025 Hospital Discharg e instructions Chetan Powell MD - 04/13/2025 9:41 PM EDT You had 10 stitches placed. Please present to an urgent care, your primary care physician, or back to the emergency department in 5-7 days to have your stitches removed. The following attachments cannot be sent through Care Everywhere.Nose Fracture (Dutch)documented in this encounter [facility] 04-13-2025 Emergency departm ent Note Associated Order(s): Laceration Repair Images from the original note were not included. EMERGENCY DEPARTMENT ENCOUNTER Pt Name: Kevin Griffith Birthdate 1945 Date of evaluation: 04/13/2025 ED Provider: Roddy Powell MD CHIEF COMPLAINT Chief Complaint Patient presents with Laceration HISTORY OF PRESENT ILLNESS (Location/Symptom, Timing/Onset, Context/Setting, Quality, Duration, Modifying Factors, Severity) Note limiting factors. I wore appropriate PPE for the entirety of this encounter. HPI Kevin Griffith is a 79 y.o. male who presents to the emergency department with chief complaint of a fall. Part of the history is obtained by the patient's , who states that because of the patient's history of Parkinson's disease, he has frequent falls, and went to stand up after being seated at a restaurant today, and fell directly onto his face. The patient denies any loss of consciousness or alcohol use. Nursing Notes were reviewed. Limitations to history: None Outside historians: Significant other REVIEW OF SYSTEMS Review of Systems Pertinent positives and negatives as per HPI. PAST MEDICAL HISTORY Medical History[1] SURGICAL HISTORY Surgical History[2] CURRENT MEDICATIONS Previous Medications No medications on file ALLERGIES Reglan [metoclopramide] FAMILY HISTORY Family History[3] SOCIAL HISTORY Social History[4] SCREENINGS PHYSICAL EXAM ED Triage Vitals [04/13/252039] Temp Heart Rate Resp BP 36.7 C (98 F) 77 18 132/58 SpO2 Temp src Heart Rate Source Patient Position 99 % -- -- -- BP Location FiO2 (%) -- -- Physical Exam Vitals and nursing note reviewed. Constitutional: General: He is not in acute distress. Appearance: He is well-developed. HENT: Head: Normocephalic. Comments: Large 4 cm gaping laceration just superior to the left eyebrow. 1 cm nongaping laceration to the bridge of the nose. No reproducible TTP along the face. Eyes: Extraocular Movements: Extraocular movements intact. Conjunctiva/sclera: Conjunctivae normal. Comments: EOMI without signs of entrapment Cardiovascular: Rate and Rhythm: Normal rate. Pulmonary: Effort: Pulmonary effort is normal. No respiratory distress. Musculoskeletal: Cervical back: Neck supple. Skin: General: Skin is warm and dry. Neurological: Mental Status: He is alert. Psychiatric: Mood and Affect: Mood normal. DIAGNOSTIC RESULTS Procedures/EKG: Interpretation per the Radiologist below, if available at the time of this note: CT maxillofacial wo IV contrast Final Result 1. Bilateral nasal bone fractures. 2. Left frontal scalp laceration with contusion. Report Dictated on Electronically Signed By: Maine Briones MD Electronically Signed Date/Time: 04/13/2025 9:21 PM EDT ED BEDSIDE ULTRASOUND: Performed by ED Physician - none LABS: Labs Reviewed - No data to display All other labs were within normal range or not returned as of this dictation. EMERGENCY DEPARTMENT COURSE and DIFFERENTIAL DIAGNOSIS/MDM: Vitals: Vitals: 04/13/252039 BP: 132/58 Pulse: 77 Resp: 18 Temp: 36.7 C (98 F) SpO2: 99% The patient presented with a chief complaint of a fall. The patient refuses a tetanus shot. He has medical decision-making capacity. The differential diagnosis associated with this patient's presentation includes but is not limited to: Cannot rule out traumatic injuries, including fractures Our workup consisted of ordering/reviewing: CT maxillofacial I reviewed external records from: PDMP demonstrating 1 prescription, for [place] CT demonstrating bilateral nasal bone fractures. The patient states that he had a recent fall and these may be old. Eyebrow laceration sutured as detailed in procedure note. Laceration to the bridge of the nose nongaping and the patient's states that she thinks this may have occurred from his last fall anyway. Consideration for escalation of care with: Admission and rehab placement, for frequent falls, but the patient refuses. Patient's care was impacted by history of Parkinson disease, causing frequent falls. The patient will be discharged The patient is in agreement with this plan. Diagnoses as of 04/13/251 Facial laceration, initial encounter Fall, initial encounter Open fracture of nasal bone, initial encounter Medications lidocaine-EPINEPHrine (Xylocaine W/EPI) 1 %-1:233325 injection 10 mL (has no administration in time range) sulfamethoxazole-trimethoprim (Bactrim DS) 800-160 MG per tablet 1 tablet (has no administration in time range) cephalexin (Keflex) capsule 500 mg (has no administration in time range) REVAL: CRITICAL CARE TIME None CONSULTS: None PROCEDURES: Unless otherwise noted below, none Laceration Repair Performed by: Chetan Powell MD Authorized by: Chetan Powell MD Consent: Consent obtained: Verbal Consent given by: Patient [place] protocol: Imaging studies available: yes Patient identity confirmed: Verbally with patient Anesthesia: Anesthesia method: Local infiltration Local anesthetic: Lidocaine 1% WITH epi Laceration details: Location: Face Face location: L eyebrow Length (cm): 4 Pre-procedure details: Preparation: Patient was prepped and draped in usual sterile fashion Treatment: Area cleansed with: Chlorhexidine Amount of cleaning: Standard Skin repair: Repair method: Sutures Suture size: 5-0 Suture material: Prolene Number of sutures: 10 Approximation: Approximation: Close Repair type: Repair type: Simple Post-procedure details: Dressing: Open (no dressing) Procedure completion: Tolerated FINAL IMPRESSION 1. Facial laceration, initial encounter 2. Fall, initial encounter 3. Open fracture of nasal bone, initial encounter DISPOSITION Discharge 04/13/2025 09:39:45 PM PATIENT REFERRED TO: [address] [address] Schedule an appointment as soon as possible for a visit in 2 days DISCHARGE MEDICATIONS: New Prescriptions CEPHALEXIN (KEFLEX) 500 MG CAPSULE Take 1 capsule (500 mg) by mouth 2 times daily for 7 days. SULFAMETHOXAZOLE-TRIMETHOPRIM (BACTRIM DS) 800-160 MG TABLET Take 1 tablet by mouth 2 times daily for 7 days. (Comment: Please note this report has been produced using speech recognition software and may contain errors related to that system including errors in grammar, punctuation, and spelling, as well as words and phrases that may be inappropriate. If there are any questions or concerns please feel free to contact the dictating provider for clarification.) Roddy Powell MD (electronically signed) Emergency Medicine Provider [1] Past Medical History: Diagnosis Date Anxiety Arthritis Asthma Sanchez's fracture of left radius, subsequent encounter for closed fracture with malunion scheduled for the surgery on 04/17/2018 at [facility] COPD (chronic obstructive pulmonary disease) ([facility]) Diabetes mellitus type 2, controlled (CMS/HCC) ([facility]) [place] (hard of hearing) HAS HEARING AID BOTH EARS , BUT DID NOT WEAR THEM Hyperlipidemia Hypertension MELISSA on CPAP [2] Past Surgical History: Procedure Laterality Date COLONOSCOPY COLONOSCOPY ELBOW SURGERY Left 1990 Lateral epicondylitis surgery EYE SURGERY bilat cataracts and implants JOINT REPLACEMENT Bilateral TKA L 2005, TKA R 2011 SKIN BIOPSY SPINAL FUSION 2000 L2,3,4; AT [facility]ST ARTHROSCOPY (HISTORICAL) Left 04/17/2018 [3] Family History Problem Relation Name Age of Onset Cancer Father leukemia Heart disease Mother Heart attack Mother [4] Social History Socioeconomic History Marital status: Tobacco Use Smoking status: Former Current packs/day: 0.00 Average packs/day: 2.0 packs/day for 50.3 years (100.6 ttl pk-yrs) Types: Cigarettes Start date: 11/20/1947 Quit date: 03/01/1998 Years since quittin.1 Smokeless tobacco: Never Substance and Sexual Activity Alcohol use: No Drug use: No Chetan Powell MD 04/13/252221 Pt presents to ED via EMS from restaurant for c/o left frontal head lac after losing footing and falling onto face on the ground. Pt has hx of parkinson's. Abrasion noted to forehead, small lac noted to bridge of nose as well as a large lac to forehead above left eye documented in this encounter [facility] 04-13-2025 Emergency departm ent Triage note Pt presents to ED via EMS from restaurant for c/o left frontal head lac after losing footing and falling onto face on the ground. Pt has hx of parkinson's. Abrasion noted to forehead, small lac noted to bridge of nose as well as a large lac to forehead above left eye [facility] 04-13-2025 Physician Emergen cy department Note Associated Order(s): Laceration Repair Images from the original note were not included. EMERGENCY DEPARTMENT ENCOUNTER Pt Name: Kevin Griffith Birthdate 1945 Date of evaluation: 04/13/2025 ED Provider: Roddy Powell MD CHIEF COMPLAINT Chief Complaint Patient presents with Laceration HISTORY OF PRESENT ILLNESS (Location/Symptom, Timing/Onset, Context/Setting, Quality, Duration, Modifying Factors, Severity) Note limiting factors. I wore appropriate PPE for the entirety of this encounter. HPI Kevin Griffith is a 79 y.o. male who presents to the emergency department with chief complaint of a fall. Part of the history is obtained by the patient's , who states that because of the patient's history of Parkinson's disease, he has frequent falls, and went to stand up after being seated at a restaurant today, and fell directly onto his face. The patient denies any loss of consciousness or alcohol use. Nursing Notes were reviewed. Limitations to history: None Outside historians: Significant other REVIEW OF SYSTEMS Review of Systems Pertinent positives and negatives as per HPI. PAST MEDICAL HISTORY Medical History[1] SURGICAL HISTORY Surgical History[2] CURRENT MEDICATIONS Previous Medications No medications on file ALLERGIES Reglan [metoclopramide] FAMILY HISTORY Family History[3] SOCIAL HISTORY Social History[4] SCREENINGS PHYSICAL EXAM ED Triage Vitals [04/13/252039] Temp Heart Rate Resp BP 36.7 C (98 F) 77 18 132/58 SpO2 Temp src Heart Rate Source Patient Position 99 % -- -- -- BP Location FiO2 (%) -- -- Physical Exam Vitals and nursing note reviewed. Constitutional: General: He is not in acute distress. Appearance: He is well-developed. HENT: Head: Normocephalic. Comments: Large 4 cm gaping laceration just superior to the left eyebrow. 1 cm nongaping laceration to the bridge of the nose. No reproducible TTP along the face. Eyes: Extraocular Movements: Extraocular movements intact. Conjunctiva/sclera: Conjunctivae normal. Comments: EOMI without signs of entrapment Cardiovascular: Rate and Rhythm: Normal rate. Pulmonary: Effort: Pulmonary effort is normal. No respiratory distress. Musculoskeletal: Cervical back: Neck supple. Skin: General: Skin is warm and dry. Neurological: Mental Status: He is alert. Psychiatric: Mood and Affect: Mood normal. DIAGNOSTIC RESULTS Procedures/EKG: Interpretation per the Radiologist below, if available at the time of this note: CT maxillofacial wo IV contrast Final Result 1. Bilateral nasal bone fractures. 2. Left frontal scalp laceration with contusion. Report Dictated on Electronically Signed By: Maine Briones MD Electronically Signed Date/Time: 04/13/2025 9:21 PM EDT ED BEDSIDE ULTRASOUND: Performed by ED Physician - none LABS: Labs Reviewed - No data to display All other labs were within normal range or not returned as of this dictation. EMERGENCY DEPARTMENT COURSE and DIFFERENTIAL DIAGNOSIS/MDM: Vitals: Vitals: 04/13/252039 BP: 132/58 Pulse: 77 Resp: 18 Temp: 36.7 C (98 F) SpO2: 99% The patient presented with a chief complaint of a fall. The patient refuses a tetanus shot. He has medical decision-making capacity. The differential diagnosis associated with this patient's presentation includes but is not limited to: Cannot rule out traumatic injuries, including fractures Our workup consisted of ordering/reviewing: CT maxillofacial I reviewed external records from: PDMP demonstrating 1 prescription, for [place] CT demonstrating bilateral nasal bone fractures. The patient states that he had a recent fall and these may be old. Eyebrow laceration sutured as detailed in procedure note. Laceration to the bridge of the nose nongaping and the patient's states that she thinks this may have occurred from his last fall anyway. Consideration for escalation of care with: Admission and rehab placement, for frequent falls, but the patient refuses. Patient's care was impacted by history of Parkinson disease, causing frequent falls. The patient will be discharged The patient is in agreement with this plan. Diagnoses as of 04/13/25 2221 Facial laceration, initial encounter Fall, initial encounter Open fracture of nasal bone, initial encounter Medications lidocaine-EPINEPHrine (Xylocaine W/EPI) 1 %-1:829013 injection 10 mL (has no administration in time range) sulfamethoxazole-trimethoprim (Bactrim DS) 800-160 MG per tablet 1 tablet (has no administration in time range) cephalexin (Keflex) capsule 500 mg (has no administration in time range) REVAL: CRITICAL CARE TIME None CONSULTS: None PROCEDURES: Unless otherwise noted below, none Laceration Repair Performed by: Chetan Powell MD Authorized by: Chetan Powell MD Consent: Consent obtained: Verbal Consent given by: Patient [place] protocol: Imaging studies available: yes Patient identity confirmed: Verbally with patient Anesthesia: Anesthesia method: Local infiltration Local anesthetic: Lidocaine 1% WITH epi Laceration details: Location: Face Face location: L eyebrow Length (cm): 4 Pre-procedure details: Preparation: Patient was prepped and draped in usual sterile fashion Treatment: Area cleansed with: Chlorhexidine Amount of cleaning: Standard Skin repair: Repair method: Sutures Suture size: 5-0 Suture material: Prolene Number of sutures: 10 Approximation: Approximation: Close Repair type: Repair type: Simple Post-procedure details: Dressing: Open (no dressing) Procedure completion: Tolerated FINAL IMPRESSION 1. Facial laceration, initial encounter 2. Fall, initial encounter 3. Open fracture of nasal bone, initial encounter DISPOSITION Discharge 04/13/2025 09:39:45 PM PATIENT REFERRED TO: [address] [id number] Schedule an appointment as soon as possible for a visit in 2 days DISCHARGE MEDICATIONS: New Prescriptions CEPHALEXIN (KEFLEX) 500 MG CAPSULE Take 1 capsule (500 mg) by mouth 2 times daily for 7 days. SULFAMETHOXAZOLE-TRIMETHOPRIM (BACTRIM DS) 800-160 MG TABLET Take 1 tablet by mouth 2 times daily for 7 days. (Comment: Please note this report has been produced using speech recognition software and may contain errors related to that system including errors in grammar, punctuation, and spelling, as well as words and phrases that may be inappropriate. If there are any questions or concerns please feel free to contact the dictating provider for clarification.) Roddy Powell MD (electronically signed) Emergency Medicine Provider [1] Past Medical History: Diagnosis Date Anxiety Arthritis Asthma Sanchez's fracture of left radius, subsequent encounter for closed fracture with malunion scheduled for the surgery on 04/17/2018 at [facility] COPD (chronic obstructive pulmonary disease) ([facility]) Diabetes mellitus type 2, controlled (CMS/HCC) ([facility]) [place] (hard of hearing) HAS HEARING AID BOTH EARS , BUT DID NOT WEAR THEM Hyperlipidemia Hypertension MELISSA on CPAP [2] Past Surgical History: Procedure Laterality Date COLONOSCOPY COLONOSCOPY ELBOW SURGERY Left 1990 Lateral epicondylitis surgery EYE SURGERY bilat cataracts and implants JOINT REPLACEMENT Bilateral TKA L 2005, TKA R 2011 SKIN BIOPSY SPINAL FUSION 2000 L2,3,4; AT [facility] W[facility]ST ARTHROSCOPY (HISTORICAL) Left 04/17/2018 [3] Family History Problem Relation Name Age of Onset Cancer Father leukemia Heart disease Mother Heart attack Mother [4] Social History Socioeconomic History Marital status: Tobacco Use Smoking status: Former Current packs/day: 0.00 Average packs/day: 2.0 packs/day for 50.3 years (100.6 ttl pk-yrs) Types: Cigarettes Start date: 11/20/1947 Quit date: 03/01/1998 Years since quittin.1 Smokeless tobacco: Never Substance and Sexual Activity Alcohol use: No Drug use: No Chetan Powell MD 04/13/252221 T [facility] 04-09-2025 Discharge summary [facility] 04-09-2025 Radiology Diagnostic study note [facility] Imaging Services [address] [place], [place] [address] Spine Cervical without Contras MR#: [id number] Acct: [id number] Name: KEVIN GRIFFITH Rep #: [id number] : 1945 M 79 From: Kristy Corey MD PCP: Dr. Ron Cooley MD Status: RE G ER Study:Spine Cervical without Contras Date of Exam: 04/09/25 Exam# [id number] Ordering Dr: Surya Dumont MD EXAM: CT Cervical Spine Without Intravenous Contrast CLINICAL INDICATION: TRAUMA TECHNIQUE: Axial computed tomography images of the cervical spine without intravenous contrast. This CT exam was performed using one or more of the following dose reduction techniques: automated exposure control, adjustment of the mA and/or kV according to patient size, and/or use of iterative reconstruction technique. COMPARISON: CT Cervical Spine dated 02/14/2025 FINDINGS: VERTEBRAE: Mild reversal cervical spine lordosis. Degenerative facet arthropathy throughout the cervical spine. No acute fracture. DISCS/SPINAL CANAL/NEURAL FORAMINA: Degenerative disc disease throughout the cervical spine. SOFT TISSUES: Unremarkable. CT/Spine Cervical without Contras IMPRESSION: 1. No acute fracture. 2. Degenerative changes of the cervical spine as described. Reading Location: [facility] CC: Dr. Surya Dumont MD; Dr. Ron Cooley MD ~ [employer] Cook: Signed [facility] 04-09-2025 Radiology Diagnostic study note [facility] Imaging Services [address] [place] [address] Brain/Head without Contrast MR#: [id number] Acct: [id number] Name: KEVIN GRIFFITH Rep #: [id number] : 1945 M 79 From: Kristy Corey MD PCP: Dr. Ron Cooley MD Status: RE G ER Study:Brain/Head without Contrast Date of Exa m: 04/09/25 Exam# [id number] Ordering Dr: Surya Dumont MD EXAM: CT Head Without Intravenous Contrast CLINICAL INDICATION: TRAUMA TECHNIQUE: Axial computed tomography images of the head/brain without intravenous contrast. This CT exam was performed using one or more of the following dose reduction techniques: automated exposure control, adjustment of the mA and/or kV according to patient size, and/or use of iterative reconstruction technique. COMPARISON: No relevant prior studies available. FINDINGS: BRAIN AND EXTRA-AXIAL SPACES: Areas of decreased attenuation in the deep cerebral white matter are consistent with small vessel ischemic/degenerative changes. The cerebral and cerebellar sulci are prominent consistent with brain atrophy. No acute intracranial hemorrhage, midline shift or mass effect. If symptoms persist, further evaluation with MRI is recommended. BONES/JOINTS: Unremarkable. No acute fracture. SOFT TISSUES: Unremarkable. SINUSES: Unremarkable as visualized. No acute sinusitis. MASTOID AIR CELLS: Unremarkable as visualized. No mastoid effusion. OTHER FINDINGS: Prior 02/14/2025. CT/Brain/Head without Contrast IMPRESSION: 1. Small vessel ischemic/degenerative changes. 2. Generalized brain atrophy. 3. No acute intracranial hemorrhage, midline shift or mass effect. If symptoms persist, further evaluation with MRI is recommended. 4. No significant change from the prior exam. Reading Location: [facility] CC: Dr. Surya Dumont MD; Dr. Ron Cooley MD ~ [employer] Cook: Signed [facility] 04-09-2025 Hospital Discharge instructions Additional Instructions Have brandi removed by your primary care provider in 7 to 10 days. There were a total of 5 brandi inserted. Return to the emergency department with fever, drainage of pus from wound, new or worsening symptoms. [facility] Work Phone: 02-14-2025 Radiology Diagnostic study note [facility] Imaging Services [address] [place], [place] [id number] Spine Cervical without Contras MR#: [id number] Acct: [id number] Name: KEVIN GRIFFITH Rep #: [id number] : 1945 M 79 From: Roopa Corbett MD PCP: Dr. Ron Cooley MD Status: RE ER Study:Spine Cervical without Contras Date of Exam: 02/14/25 Exam# [id number] Ordering Dr: Ungur,Re mus DO PROCEDURE: SPINE CERVICAL WITHOUT CONTRAS 02/14/2025 REASON FOR EXAM: 79-year-old male, fall, hit head on concrete. TECHNIQUE: Cervical spine CT without contrast. Coronal and Sagittal reconstruction series were provided. One or more dose reduction techniques were used (e.g., Automated exposure control, adjustment of the mA and/or kV according to patient size, use of iterative reconstruction technique RADIATION DOSE SUMMARY: CTDlvol: 25 mGy DLP: 500 mGycm COMPARISON: CT C-spine 116 25. FINDINGS: Alignment: There is mild straightening of the normal cervical lordosis. No traumatic listhesis. Vertebrae: No acute osseous fracture. Mild chronic C5 and C6 vertebral body height loss. Multilevel degenerative disc disease. Soft Tissues: No prevertebral or subcutaneous hematoma. CT/Spine Cervical without Contras IMPRESSION: NO ACUTE CERVICAL FRACTURE. DEGENERATIVE CHANGES. Reading Location: [facility] CC: Dr. Ron Cooley MD; Dr. Joe Soto DO ~ [employer] Cook: Signed [facility] 02-14-2025 Radiology Diagnostic study note [facility] Imaging Services [address] [place] [id number] Brain/Head without Contrast MR#: [id number] Acct: [id number] Name: KEVIN GRIFFITH Rep #: [id number] : 1945 M 79 From: Roopa Corbett MD PCP: Dr. Ron Cooley MD Status: RE Lluvia ER Study:Brain/Head without Contrast Date of Exa m: 02/14/25 Exam# [id number] Ordering Dr: Aziza Soto DO EXAM: BRAIN/HEAD WITHOUT CONTRAST CLINICAL HISTORY: 79-year-old male, fall, hit head on concrete. RADIATION DOSE SUMMARY: CTDlvol: 50 mGy DLP: 830 mGycm COMPARISON: CT head 12/05/2024. TECHNIQUE: Routine CT imaging of the head without IV contrast. Additional multiplanar reformats were obtained. Dose reduction techniques were used including intermediate exposure control (AEC),iterative reconstruction technique, and/or mA and/or KV dose adjustments based on patient's size. FINDINGS: Mild generalized cerebral volume loss with concordant prominence of the ventricles and subarachnoid spaces. Mild scattered supratentorial white matter hypodensities. The onofre-white matter interfaces areotherwise maintained. No acute intracranial hemorrhage or herniation. The orbits, visualized paranasal sinuses and mastoids are unremarkable. No acute calvarial fracture. Moderate-sized right upper posterior scalp hematoma. CT/Brain/Head without Contrast IMPRESSION: 1. No acute intracranial finding. 2. Moderate-sized right upper posterior scalp hematoma. 3. Findings of mild chronic microvascular ischemic change and age-related change. Reading Location: [facility] CC: Dr. Ron Cooley MD; Dr. Joe Soto DO ~ [employer] Cook: Signed [facility] 01-21-2025 Radiology Diagnostic study note [facility] Imaging Services [address] [place] [id number] Chest PA and Lateral MR#: [id number] Acct: [id number] Name: KEVIN GRIFFITH Rep #: [id number] : 1945 M 79 From: Kristy Corey MD PCP: Dr. Ron Cooley MD Status: RE G CLI Study:Chest PA and Lateral Date of Exam: 01/21/25 Exam# [id number] Ordering Dr: Ron Cooley MD EXAM: XR Chest, 2 Views CLINICAL INDICATION: TECHNIQUE: Frontal and lateral views of the chest. COMPARISON: No relevant prior studies available. FINDINGS: LUNGS AND PLEURAL SPACES: Unremarkable. No consolidation. No pneumothorax. HEART: Unremarkable. No cardiomegaly. MEDIASTINUM: Unremarkable. Normal mediastinal contour. BONES/JOINTS: Unremarkable. No acute fracture. RAD/Chest PA and Lateral IMPRESSION: No acute cardiopulmonary process. Reading Location: [facility] CC: Dr. Ron Cooley MD ~ [employer] Cook: Signed [facility] 12-10-2024 Evaluation note Diagnosis Onset Date Resolution Diplopia acute December 10, 2024 10:37am Dysphagia acute December 10, 2024 10:37am Abnormality of gait and mobility chronic December 10 10:37am Dementia chronic December 10, 2024 10:37am Parkinson's disease chronic 2024 10:37am Polyneuropathy chronic December 102024 10:37am [facility] Work Phone: 1(984) 228-453701-21-2025 Evaluation note* Diagnosis Onset Date Resolution Status Admit Date Diplopia acute December 10, 2024 10:37am Dysphagia acute December 10, 2024 10:37am Abnormality of gait and mobility December 10 10:37am Dementia chronic December 10, 2024 10:37am Parkinson's disease chronic 2024 10:37am Polyneuropathy chronic December 102024 10:37am Diplopia acute February 06 1:00pm Dysphagia acute February 06 1:00pm Abnormality of gait and mobility chronic February 06, 2025 1:00pm Dementia chronic February 06 1:00pm Parkinson's disease chronic February 06, 2025 1:00pm Polyneuropathy chronic January 1:00pm [facility] Work Phone: 1(303) 467-389601-21-2025 Evaluation note* Diagnosis Onset Date Resolution Status Admit Date Diplopia acute December 10, 2024 10:37am Dysphagia acute December 10, 2024 10:37am Abnormality of gait and mobility December 10 10:37am Dementia chronic December 10, 2024 10:37am Parkinson's disease chronic 2024 10:37am Polyneuropathy chronic December 102024 10:37am Diplopia acute February 06 1:00pm Dysphagia acute February 06 1:00pm Abnormality of gait and mobility chronic February 06, 2025 1:00pm Dementia chronic February 06 1:00pm Parkinson's disease chronic February 06, 2025 1:00pm Polyneuropathy chronic January 1:00pm Dysphagia acute March 20, 2025 3:22pm Abnormality of gait and mobility chronic March 20, 2025 3: 22pm Dementia chronic March 20, 2025 3:22pm Parkinson's disease chronic March 202024 3:22pm Polyneuropathy chronic March 20, 2 025 3:22[facility] Work Phone: 1(582) 237-696808-02-2023 Procedure [facility] 02-15-2023 NoteHNO ID: [id number] Author: Kori Ryder PT, DPT Service: ? Author Type: Physical Therapist Type: Progress Notes Filed: 02/15/2023 7:45 AM Note Text: 02/15/2023 [facility] PH[facility]ICAL THERAPY [...] appointments due to fx of foot. Kori Ryder PT, [facility] [id number] Miscellaneous Notes* Telephone Encounter - Seven Harrison RN - 02/14/2023 3:08 PM EDT MC message sent to patient and for further assessment. Awaiting reply. YVONNE Naik, RN February 14, 2023 3:08 PM * Telephone Encounter - Seven Harrison RN - 02/14/2023 3:04 PM EDT Received voicemail from patients' on Mon02/14/2023 2:28 PM Transcript below: This is Brennen Griffith. My phone number is [phone]. I'm calling for my Kevin Griffith. His date of is 1945. I'm directing this to Dr. Nieves's nurse. Kevin fell Monday morningand he broke his ankle and possibly his big toe. We're going to see the ortho people tomorrow morning but since then he has fallen two more times. He has almost fallen about three more times and fromhis description of it, it dizziness, it isn't losing his balance or anything like that, he just goes down. He has no warning and he just goes down, and after hearing that, I feel it's probably due tohis Parkinson's. I'm hoping and praying that maybe a prescription change on his levodopa will maybehelp him or if you have any other things that you would like to suggest that maybe we can get him to make his brain work better as far as being able to walk. I'm not well, his , I have serious medical problems and we need help really, really bad or it's gonna be a intermediate and I don't wannado that so please give me a call at your earliest convenience. Thank you. Abbey. Message shared with CAR for further guidance. YVONNE Naik, RN February 14, 2023 3:04 PM * Telephone Encounter - Raeann Vizcarra - 02/14/2023 2:22 PM EDT Patient's spouse (Brennen) called requesting to speak to medical staff regarding Kevin's condition. Brennen reports Kevin has had an increase in falls/weakness that they believe to be related to Parkinson's. Brennen also states that Kevin has become more aggressive. Brennen is very concerned. Please call her at [phone]. Raeann Vizcarra documented in this encounterWayne Healthcare [facility] Campus03-25-[address] Farooq [facility] February 11, 2023 2:01pm Note Date/Time February 11, 2023 1:2 0pm [facility] Medical Records Department [address] [place] [address] Emergency Department Summary 02/11/23 MR#: [id number] Acct: [id number] Name: KEVIN GRIFFITH Rep #:[id number] 20 : 1945 77 From: Osman Farooq MD PCP: Dr. Ron Cooley MD Status:RE G ER Location: ED HPI HPI - Fall History of Present Illness Chief Complaint: Fall Informant: patient and spouse/S.O. Occured/Mechanism Occurred: Today Fall down steps #: 1-2 Usually ambulates: Without assistance Associated Symptoms Associated Symptoms: Positive for Inability to ambulate; Negative for Loss of consciousness Narrative Narrative: 77-year-old male was walking down 2 steps and missed his footing, twisting his right ankle, which caused him to fall against a nearby brick wall hitting his head on the right side. He feels like he has a little bit of blood in his ear canal, the states that is the main reason they came in because they were concerned that he had a major head injury. He denies having headache, nausea, loss of consciousness, vision changes, or any peripheral neurologic symptoms. Denies any neck pain or back pain or other injuries besides his right ankle, he cannot bear weight on it since the injury. [facility] Medical History Arthritis Back problem Cataract Essential (primary) hypertension HLD (hyperlipidemia) Obesity Paroxysmal atrial fibrillation Right bundle branch block (RBBB) Type 2 diabetes mellitus Home Medications aspirin 81 mg tablet,delayed release (Adult Low Dose Aspirin) 81 mg PO QDAY 04/06/18 [History Last Taken Unknown] insulin aspart U-100 100 unit/mL subcutaneous solution (Novolog U-100 Insulin aspart) See Rx Instructions .Route .COMPLEX 04/06/18 [History Last Taken Unknown] insulin detemir U-100 100 unit/mL subcutaneous solution (Levemir U-100 Insulin) See Rx Instructions .Route .COMPLEX 04/06/18 [History Last Taken Unknown] metformin 750 mg tablet,extended release 24 hr 1,500 mg PO QHS 04/06/18 [History Last Taken Unknown] pravastatin 80 mg tablet 80 mg PO QDAY 04/06/18 [History Last Taken Unknown] saxagliptin 5 mg-metformin ER 1,000 mg tablet,extend release 24hr mp ([facility]) 1 tab PO QDAY 04/06/18 [History Last Taken Unknown] hydrochlorothiazide 12.5 mg tablet 12.5 mg PO DAILY 04/12/21 [History Last Taken Unknown] tamsulosin 0.4 mg capsule 0.4 mg PO DAILY 04/12/21 [History Last Taken Unknown] carbidopa 25 mg-levodopa 100 mg tablet 1.5 tab PO TID 04/12/22 [History Last Taken Unknown] cholecalciferol (vitamin D3) 25 mcg (1,000 unit) capsule 25 mcg PO BID 04/12/22 [History Last Taken Unknown] duloxetine 20 mg capsule,delayed release 20 mg PO DAILY 04/12/22 [History Last Taken Unknown] fluticasone fur. 200 mcg-umeclid 62.5 mcg-vilant 25 mcg inhalat.powder (Trelegy Ellipta) 1 inh inhalation DAILY 04/12/22 [History Last Taken Unknown] hydroxyzine HCl 25 mg tablet 25 mg PO QHS 04/12/22 [History Last Taken Unknown] oxycodone-acetaminophen 5 mg-325 mg tablet tablet PO 04/12/22 [History Last Taken Unknown] pantoprazole 40 mg tablet,delayed release 40 mg PO DAILY 04/12/22 [History Last Taken Unknown] potassium chloride 10 mEq tablet,extended release 20 meq PO DAILY 04/12/22 [History Last Taken Unknown] telmisartan 40 mg-hydrochlorothiazide 12.5 mg tablet 1 tab PO DAILY 04/12/22 [History Last Taken Unknown] Allergy/AdvReac Type Severity Reaction Status Date / Time metoclopramide [From Reglan] Allergy HYPER Verified 02/11/23 12:49 Family History Father Leukemia Surgical History History of left tennis elbow History of skin cancer History of total left knee replacement (TKR) Hx of spinal fusion Social History Smoking Status: Former smoker alcohol intake: never substance use type: does not use ROS ROS ED Constitutional Constitutional ED: Denies chills or fever(s) Eyes Eyes: Denies change in vision or diplopia ENT ENT ED: Denies ear pain, epistaxis, facial pain or rhinorrhea Cardiovascular Cardiovascular: Denies chest pain or palpitations Respiratory/Chest Respiratory/Chest: Denies cough or dyspnea Gastrointestinal Gastrointestinal: Denies abdominal pain, diarrhea, melena, nausea or vomiting Genitourinary Genitourinary ED: Denies dysuria or hematuria Musculoskeletal Musculoskeletal: Reports extremity pain; Denies back pain or neck pain Integumentary Reports Abrasions; Denies abscess, laceration or rash Neurologic Neurologic: Denies confusion, headache(s), paresthesias or weakness EXAM Physical Exam Const Vital Signs: 02/11/23 12:46 02/11/23 12:56 Temperature 97.0 F L Temperature Source Temporal Pulse Rate 82 Respiratory Rate 18 Respiratory Effort Normal Non-Labored Blood Pressure 149/68 H Blood Pressure Mean 95 Pulse Ox 97 Oxygen Delivery Method Room Air Positive well nourished and well developed General Appearance ED: well developed and NAD HEENT Reports TM's clear and nasal mucous membranes and turbinates normal HEENT Narrative: Abrasion and contusion right lateral preauricular face and just above the ear, no lacerations requiring repair, there is a small amount of blood in the external most portion of the external ear canal, but the rest of the canal has no bloodin the tympanic membrane is normal-appearing without any hemotympanum, no CSF otorhinorrhea. It does appear that nearby blood from the abrasion dripped into the ear canal. No bony facial tenderness. No trismus no malocclusion, able to move his mandible [id number] without any discomfort. Zygomatic arch is nontender and the rest of the face is atraumatic. trauma Face and Sinus: Negative for facial tenderness Tympanic Membrane ED: Yes TM's clear Eyes PERRL and EOMs intact bilaterally Visual Acuity: other Other Details: no entrapment or pain with extraocular movements Neck full ROM and supple General: Negative for tenderness Chest Wall inspection of chest normal and palpation of chest normal Chest: symmetrical chest wall rise; Negative for crepitus or tenderness Resp normal respiratory effort and clear to auscultation bilaterally Percussion: other equal BS bilat Cardio no murmurs Rate: regular rate Rhythm: regular rhythm GI normal to inspection, nondistended, normoactive bowel sounds, soft to palpation and non-tender Back/Spine normal ROM Cervical Spine: Negative for cervical spine tenderness Thoracic Spine / Upper Back: Negative for thoracic spinal tenderness Lumbar Spine / Lower Back: Negative for lumbar spinal tenderness Extremity Extremity Narrative: Tender with significant swelling right lateral malleolus, no gross deformities, nontender to medial malleolus and base of the fifth metatarsal and proximal fibula. Limited range of motion of the right ankle due to pain, but normal painless range of motion throughout all other joints of all 4 extremities. No other areas of bony extremity tenderness. General Extremety ED: Yes tenderness Neuro oriented x3, CN's II-XII intact bilaterally, moves all extremities, no focal motor deficits and no sensory deficits noted Napoleon Coma Scale: document GCS findings Spontaneous Obeys Commands Oriented 15 Sensorium / Orientation: awake and alert Psych mental status grossly normal and thought process normal Skin no wounds Lesions: no lesions Rashes: no rashes MDM MDM MDM Narrative Medical decision making narrative: Patient is on a baby aspirin no anticoagulants. Mainly due to age, although as I was at a low suspicion of intracranial injury, CT was obtained. The images appear unremarkable my interpretation, radiologist agrees, I agree with his interpretation. 3 views of the right ankle on my interpretation show what appears to be a nondisplaced distal fibula fracture, it appears to be consistentwith a Pollard B. I discussed this with Dr. Jean-Baptiste on for orthopedics, he advisesan orthotic boot without taking it off, nonweightbearing is much as possible, and close outpatient follow-up after the weekend. Patient is fine with this, I offered analgesics he declines them. Nurses cleansed the abrasions on the rightside of his face. Radiography Diagnostic Testing: Clinical Impression(s) from Imaging Studies Ankle X-Ray 02/11/23 13:06 IMPRESSION: Distal fibular fracture. Moderate adjacent soft tissue swelling. Electronically Signed: Donnell Blanton MD, JD at 13:46 EDT Reading Location ID and State: [facility] / [place] Tel , Service support , Brain CT 02/11/23 13:22 IMPRESSION: No acute changes. Moderate cortical and central atrophy. Mild chronic microvascular ischemic change. Mild cerebellar atrophy. Electronically Signed: Donnell Blanton MD, JD at 13:49 EDT Reading Location ID and State: [facility] / [place] Tel , Service support , Discharge Plan Triage Chief Complaint: Fall ED Provider: Osman Farooq Dx/Rx/DC Orders Clinical Impression: Closed traumatic nondisplaced fracture of distal end of right fibula, Closed head injury without concussion, Abrasion of face Instructions: Walker Stand Non Wt Bearing Steps, ED Ankle Fracture, Distal Fibula Prescriptions: No Action metformin 750 mg tablet extended release 24 hr 1,500 mg PO QHS pravastatin 80 mg tablet 80 mg PO QDAY insulin detemir U-100 [Levemir U-100 Insulin] 100 unit/mL solution See Rx Instructions .ROUTE .COMPLEX Label Comments: 80 units Sub-Q in the morning; 75 units Sub-Q in the evening Rx Instructions: 80 units Sub-Q in the morning; 75 units Sub-Q in the evening saxagliptin-metformin [Kombiglyze XR] 5-1,000 mg tablet, ER multiphase 24 hr 1 tab PO QDAY aspirin [Adult Low Dose Aspirin] 81 mg tablet,delayed release (DR/EC) 81 mg PO QDAY insulin aspart U-100 [Novolog U-100 Insulin aspart] 100 unit/mL solution See Rx Instructions .ROUTE .COMPLEX Label Comments: 22 units Sub-Q TID before meals Rx Instructions: 22 units Sub-Q TID before meals hydrochlorothiazide 12.5 mg tablet 12.5 mg PO DAILY tamsulosin 0.4 mg capsule 0.4 mg PO DAILY cholecalciferol (vitamin D3) 25 mcg (1,000 unit) capsule 25 mcg PO BID oxycodone-acetaminophen 5-325 mg tablet PO Trelegy Ellipta 200-62.5-25 mcg blister with device 1 inh inhalation DAILY carbidopa-levodopa 25-100 mg tablet 1.5 tab PO TID duloxetine 20 mg capsule,delayed release(DR/EC) 20 mg PO DAILY pantoprazole 40 mg tablet,delayed release (DR/EC) 40 mg PO DAILY telmisartan-hydrochlorothiazid 40-12.5 mg tablet 1 tab PO DAILY potassium chloride 10 mEq tablet extended release 20 meq PO DAILY hydroxyzine HCl 25 mg tablet 25 mg PO QHS Primary Care Provider: Ron Cooley Referrals: Ron Cooley MD [Primary Care Provider] - Arnaud Jean-Baptiste MD [Med Staff - Active Staff] - As soon as possible (Call for appointment to be seen this coming week) Activity Restrictions/Additional Instructions: Leave boot on until you see orthopedics Disposition Disposition: Home, Self Care What to do if you have Problems For any increased pain, shortness of breath, bleeding, nausea or vomiting, chestpain, or any unexpected problems, contact your Primary Care Provider. Call [facility] ([phone]) or report to the closest Emergency Room. Call 911 if necessary. 02/11/23 1401 <Electronically signed by Osman Farooq MD> Cosigner Signature (if applicable): CC: Dr. Ron Cooley MD; Dr. Arnaud Jean-Baptiste MD ~ Signed [facility] Work Phone: [phone]) 804-551502-24-2023 Miscellaneous Notes* Telephone Encounter - Karen Parra RN - 01/13/2023 2:26 PM EST Received voicemail 01-13-23 at 12:31 PM. My name is Brennen Griffith. My phone number is [phone]. This is in regard to Kevin Griffith. I'm calling to return a call. Hopefully someone will call me back again. Sorry I haven't been able to answer the phone this week. I'm not feeling well either. Thank you. Call back to patient's Brennen to provide message from Dr. Nieves below. Patient's verbalizes understanding. She states they did go to PCP yesterday and he was prescribed a z pack and tessalon perles. CADENCE Byers, RN January 13, 2023 2:32 PM * Telephone Encounter - Marguerite Del Real MA - 01/11/2023 10:00 AM EST LVM for Brennen to cb * Telephone Encounter - Jaylyn Nieves MD - 01/10/2023 4:38 PM EST Agreed. Consider seeing PCP if cold symptoms not improving. Improvement in Parkinson's symptoms when they are exacerbated by medical illness can lag behind improvement in URI symptoms by days or more. Changing Sinemet during medical illness exacerbations is not helpful. * Telephone Encounter - Grace Sibley RN - 01/10/2023 3:58 PM EST Voicemail received January 10, 2023 1432 My name is Brennen Griffith. My phone number is [phone]. My 's name is Kevin Griffith. He viki patient of Dr. Nieves. His birthday is [birth year]. I'm calling to [...] to provider for review. documented in this encounterWayne Healthcare Main Campus01-23-2023 NoteHNO ID: [id number] Author: Leni Ruiz APRN.[employer] ARCHITECT Service: ? Author Type: Nurse Practitioner Type: Progress Notes Filed: 12/13/2022 10:48 PM Note Text: [facility] - FOLLOW UP EVALUATION Ron Cooley MD [address] [address] Dear Ron Cooley MD: I had the pleasure of seeing Mr. Griffith for follow-up today. As you know he is a 77 year old right-handed male with a history of tremor since 2019. He is seen with his , Brennen. Subjective Previous Plan-08/04/2022 Visit: - consult for [...] Flowsheet Row OT/PT/Speech Visit from 10/04/2022 in [facility] OT/PT/Speech Visit from 08/25/2022 in [facility] [...] three times daily. insulin (more content not included)...[facility]01-23-2023 Instructions* Patient Instructions* Leni Ruiz APRN.CNP - 12/12/2022 2:56 PM EST It was [...] time you come in so that we canhave them on [facility]. Interested in clinical research? Not currently Movement Disorders Medication Schedule: Medications 6am 12pm 5pm Bedtime Sinemet 25/100 2 2 1 1 Sertaline 50mg 1 Return in about 6 months (around 06/11/2023). If there are any concerns before your next visit, please call or you can send a message through EGT. You can also now schedule and select appointments through EGT. Leni Ruiz APRN.CNP documented in this encounterWayne Healthcare Main Campus01-23-2023 History of Present illness Narrative* Leni Ruiz APRN.CNP - 12/12/2022 2:00 PM EST [facility] - FOLLOW UP EVALUATION Ron Cooley MD [address] [facility] [address] [facility] [address] Dear Ron Cooley MD: I had the pleasure of seeing Mr. Griffith for follow-up today. As you know he is a 77 year old right-handed male with a history of tremor since 2019. He is seen with his , Brennen. Subjective Previous Plan-08/04/2022 Visit: - consult for [...] Flowsheet Row OT/PT/Speech Visit from 10/04/2022 in [facility] OT/PT/Speech Visit from 08/25/2022 in [facility] [...] D3 50 MCG, 2,000 UNIT, GUMMIES) fluticasone zqvvnjy-twsxisrckjlr-lwhxocpjan (TRELEGY ELLIPTA) 200-62.5-25 mcg powder inhaler Inhale1 Puff as instructed once daily. aspirin, enteric [...] Objective Vital Signs: Ht 177.8 cm (5' 10) Wt 118.3 kg (260 lb 12.8 oz) SpO2 96% BMI 37.42 kg/m Orthostatic Vitals: Sitting: BP 124/78 Pulse 114 Standing: BP 105/69 Pulse 115 No LMP for male patient. Body mass index is 37.42 kg/m . Movement Disorders Scales Performed: [place] Cognitive Assessment (MoCA) Visuospatial/Executive 5 Naming 2 [...] amplitude decrements near the end of the 10taps. Finger Taps Left 1-Slight. a) the regular [...] may need more than one attempt, or mayneed to move forward in the chair to [...] male with tremor and gait instability. At initialvisit, tremors were felt to be clinically consistent with ET. There was no rigidity. Mild bradykinesia only at lower extremities. Gait abnormal but not parkinsonian. 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 Startedon Sinemet which caused side effects at 6/day. [...] time you come in so that we canhave them on file here at [facility]. Interested in clinical research? Not currently Updated Movement Disorders Medication Schedule: Medications 6am 12pm 5pm Bedtime Sinemet 25/100 2 2 1 1 Sertaline 50mg 1 Level of service : 06317 (40-54 min). Time spent 51 ( 1:54pm-2:45pm) min on the day of service, which included preparing to see the patient, grnj-lp-iaoc patient care, completing clinical documentation, obtaining and/or reviewing separately obtained history, performing a medically appropriate examination, and counseling and educating the patient/family/caregiver. Leni Ruiz APRN.[employer] ARCHITECT documented in this encounterWayne Healthcare Main Campus11-21-2022 Miscellaneous Notes* Telephone Encounter - Thaddeus Wilkinson MD - 10/10/2022 3:30 PM EST Thanks for the FYI. Well done! JHS * Telephone Encounter - Seven Harrison RN - 10/10/2022 2:32 PM EST Received voicemail from patient on 10/10/2022 9:09 AM Transcript below: Morning this is Kevin Griffith and my phone number is [phone]. I calling to find out if there'sa way to rearrange these CL pills that I'm taking. I seem to have more of Parkinson's shakes and what have you early in the morning and I am now taking them at 6:00 AM noon and 6:00 PM. Thank you very much. Bye now. Returned call to patient to reviewed message and symptoms. No answer. Voicemail left directing patient to a detailed EGT message. Requested reply via MC or RCTO. Provided office number. Message shared with covering provider as KA is OOO. Seven Harrison MSN, RN October 10, 2022 2:44 PM documented in this encounterWayne Healthcare Main Campus11-15-2022 NoteHNO ID: [id number] Author: Kori Ryder, PT, DPT Service: ? Author Type: Physical Therapist Type: Progress Notes Filed: 10/04/2022 3:13 PM Note Text: Episode Visit Count: 4 Therapist That Will Accept/Oversee The Plan Of Care: Kori Ryder Start of Care Date: 08/11/22 Onset Date: [...] Total Treatment Time Minutes (timed/untimed): 45 Kori Ryder PT, [facility]11-15-2022 History of Present illness Narrative* Kori Ryder PT, DPT - 10/04/2022 11:59 AM EST Episode Visit Count: 4 Therapist That Will Accept/Oversee The Plan Of Care: Kori Ryder Start of Care Date: 08/11/22 Onset Date: [...] 12, and 6pm). Wakes at 4-5am. Notes balancehas good and bad days. notes pt has [...] stand by assist during pre-gait/gait training to preventfalls and insure safety. Facilitated proper gait cycle with the use of verbal cues for correction of gait deviations identified in the objective section above. Education as above Billing Neuromuscular Re-Education Treatment Minutes: 5 Gait Training Treatment Minutes: 35 Total Treatment Time Minutes (timed/untimed): 45 Kori Ryder PT, DPT documented in this encounterWayne Healthcare Main Campus10-28-2022 Miscellaneous Notes* Addendum Note - Jaylyn Nieves MD - 09/16/2022 12:50 PM EDTAddended by: JAYLYN NIEVES on: 09/16/2022 12:50 PM Modules accepted: Orders * Telephone Encounter - Jaylyn Nieves MD - 09/16/2022 12:50 PM EDT The following approved medication requests have been transmitted electronically. Requested Prescriptions Signed Prescriptions Disp Refills DULoxetine (CYMBALTA) 30 mg capsule 90 capsule 3 Sig: Take 1 capsule by mouth once daily. Jaylyn Nieves MD * Addendum Note - Lena Adams - 09/16/2022 11:43 AM EDTAddended by: LENA MAY on: 09/16/2022 11:43 AM Modules accepted: Orders * Telephone Encounter - Lena Adams - 09/16/2022 11:40 AM EDT Script pending to go to [facility]. documented in this encounterWayne Healthcare Main Campus10-28-2022 Miscellaneous Notes* Telephone Encounter - Seven Harrison RN - 09/16/2022 8:48 AM EDT Called and left voicemail that an updated RX had been sent for the Cymbalta. Provided office number for RCTO and option to message via EGT. YVONNE Naik, RN September 16, 2022 8:48 AM * Telephone Encounter - Jaylyn Nieves MD - 09/15/2022 4:48 PM EDT The following approved medication requests have been transmitted electronically. Requested Prescriptions Signed Prescriptions Disp Refills DULoxetine (CYMBALTA) 30 mg capsule 90 capsule 3 Sig: Take 1 capsule by mouth once daily. Authorizing Provider: JAYLYN NIEVES MD * Telephone Encounter - Seven Harrison RN - 09/15/2022 4:35 PM EDT Patient will be seen by another physician in the PCP practice to evaluate him for the falls. shared that they are onboard with increasing the Cymbalta. The patient also had a panic attack several weeks ago so that supports the increase in the Cymbalta. New order pended to this encounter. YVONNE Naik, RN September 15, 2022 4:40 PM * Telephone Encounter - Seven Harrison RN - 09/14/2022 2:41 PM EDT Called daughter Barbi and shared update. She will confer with her mother and father and update theoffice as needed. YVONNE Naik, RN September 14, 2022 2:42 PM * Telephone Encounter - Jaylyn Nieves MD - 09/14/2022 2:33 PM EDT Agree that the knee needs to get evaluated. Having PT evaluate for an injury is not appropriate, that's not what they do. Best intervention for worsening balance is PT. He had felt lightheaded at visit but negative orthostatics, continue to encourage fluids. For the mood we could increase Cymbalta to 30 mg if he's agreeable. * Telephone Encounter - Seven Harrison RN - 09/14/2022 1:41 PM EDT returned call. Last week he walked right [...] diabetic on sliding scale insulin. No recent acuteillness either. Mood changes and some sadness/ depression. Additional stressors as is not well at this time and is to be having some testing done for herself as well. is being evaluated for colon cancer, Endoscopy and colonoscopy as well as CT scan tomorrow. Daughter Barbi aware and concerned as well. She is an active part of the family's care. Update shared with CAR. YVONNE Naik, RN September 14, 2022 1:54 PM * Telephone Encounter - Seven Harrison RN - 09/13/2022 12:30 PM EDT Returned call to Brennen. No reply, left detailed message requesting RCTO. Provided office number forcall back. Awaiting reply. YVONNE Naik, RN September 13, 2022 12:31 PM * Telephone Encounter - [place] Gallo [facility] [place] 09/12/2022 2:34 PM EDT NI PHONE NAME OF CALLER: Brennen RELATIONSHIP TO PATIENT: spouse PATIENT ID'D BY NAME/: yes REASON FOR CALL: States that his PD symptoms are worsening and she would like to speak with Stefania. CALLBACK #: [phone] OK TO LEAVE MESSAGE: ok only on this number - do not leave at home number LAST FUV: 08/04/22 with KA Electronically signed by Lena Gallo [facility] [place] at 09/12/2022 2:37 PM EDT documented in this encounterWayne Healthcare Main Campus10-27-2022 NoteHNO ID: [id number] Author: Kori Ryder, PT, DPT Service: ? Author Type: Physical Therapist Type: Progress Notes Filed: 09/15/2022 6:16 PM Note Text: Episode Visit Count: 3 Therapist That Will Accept/Oversee The Plan Of Care: Kori Ryder Start of Care Date: 08/11/22 Onset Date: [...] function that interfere with walking;standing;stair negotiation;Comments;heavy exertion;physical activities;lifting;driving;carrying . Current prognosis is Good due to: [...] Patient to be seen for Therapeutic exercise (35643);Neuromuscular re-education (59754);Manual therapy (20363);Therapeutic activities (56099);Self-fdc management (45460);Gait Training (11347);Functional training;General Conditioning;Body Mechanics Training;Patient/Family/Caregiver Education PLAN FOR NEXT VISIT: Assess response from MD appt. Further posture and balance work as knee allows. Work on endurance. SUBJECTIVE: Patient Reason for Visit: Fell about 6 days ago down 3 steps. Knee fully bent pretty aggregssively.. Functional Limitations: walking;standing;stair negotiation;Comments;heavy exertion;physical activities;lifting;driving;carrying Pain: Pain Pain Level: 4 Pain Location: [...] Time Minutes (timed/untimed): 45 (more content not included)...[facility] [id number] NoteHNO ID: [id number] Author: Aleida Ramirez MD Service: ? Author [...] could not see the pt. REFERRAL SOURCE: [facility] Physician - Dr. Nieves CHIEF COMPLAINT: Anxiety. HPI: The patient is [...] placed- Per Patient LAPAR LUMBAR FUSION ADDITIONAL 2018 S LEAD SPINAL CORD STIMULATOR 05/19/2021 TOTAL [...] 1 tablet by mouth twice daily. fluticasone eywjnip-oxtpezcowtix-hojkyujftu (TRELEGY ELLIPTA) 200-62.5-25 mcg powder inhaler Inhale [...] Negative for malaise, signif (more content not included)...[facility]10-14-2022 History of Present illness Narrative* Aleida Ramirez MD - 09/02/2022 9:05 AM EDT Images from the original note were not [...] could not see the pt. REFERRAL SOURCE: [facility] Physician - Dr. Nieves CHIEF COMPLAINT: Anxiety. HPI: The patient is [...] that he try to refrain from using hydroxyzineat bedtime, as this medication could worsen his [...] Take 2 tablets by mouth three times daily.540 tablet 3 DULoxetine (CYMBALTA) 20 mg capsule [...] 1 tablet by mouth twice daily. fluticasone udiitqw-jooxkverwftn-ntlzsgeelz (TRELEGY ELLIPTA) 200-62.5-25 mcg powder inhaler Inhale1 Puff as instructed once daily. aspirin, enteric [...] prior psychiatrist Therapist: No prior therapist Current Cinder Man: None Last Hospitalization: Denies hospitalization. ECT: None Previous Discontinued Psychiatric Med Trials: None SUBSTANCE USE HISTORY: Nicotine: 40 py, quit 23 years ago Caffeine: Coffee, 3 cups/day Alcohol: Drank when he was younger, Marijuana: No history of use or dependence Cocaine: No history of use or dependence Opiods: No history of use or dependence SPIRITUALITY: Ellen [facility]: Kevin Griffith is the oldest of 6 siblings. The patient was born and raised in [place]. He completed school He described his childhood [...] population = 50. Five points is a clinicallymeaningful difference.) 08/30/2021 03/11/2022 08/22/2022 Physical T-Score 42.3 [...] PAGER : see directory documented in this encounterWayne [facility]10-06-2022 NoteHNO ID: [id number] Author: Kori Ryder, PT, DPT Service: ? Author Type: Physical Therapist Type: Progress Notes Filed: 08/25/2022 6:11 PM Note Text: Episode Visit Count: 2 Therapist That Will Accept/Oversee The Plan Of Care: Kori Ryder Start of Care Date: 08/11/22 Onset Date: [...] Total Treatment Time Minutes (timed/untimed): 38 Kori Ryder PT, [facility]10-06-2022 History of Present illness Narrative* Kori Ryder PT, DPT - 08/25/2022 5:11 PM EDT Episode Visit Count: 2 Therapist That Will Accept/Oversee The Plan Of Care: Kori Ryder Start of Care Date: 08/11/22 Onset Date: [...] slow performance with ex as well. Education onway to manually decrease neck pain. Education on [...] Total Treatment Time Minutes (timed/untimed): 38 Kori Ryder PT DPMaycol documented in this encounterWayne Healthcare Main Campus09-22-2022 NoteHNO ID: [id number] Author: Kori Ryder PT, DPT Service: ? Author Type: Physical Therapist Type: Progress Notes Filed: 08/11/2022 1:45 PM Note Text: Episode Visit Count: 1 Therapist That Will Accept/Oversee The Plan Of Care: Kori Ryder Start of Care Date: 08/11/22 Onset Date: 11/20/20 Plan of Care Certification Date: 08/11/22 Next Certification Due Date: 10/20/22 Patient Identified by Name and Date of : Yes REHABILITATION AND SPORTS THERAPY PHYSICAL THERAPY EVALUATION PLAN OF CARE: Assessment: Kevin Griffith presents with diagnosis of Parkinson's Disease that interferes with walking;standing;stair negotiation;Comments;heavy exertion;physical activities;lifting;driving;carrying Uses stair lift in home. Must do [...] Planned: 4 Planned Treatment Interventions: Therapeutic exercise (74706);Neuromuscular re-education (10258);Manual therapy (14373);Therapeutic activities (15961);Self-fdc management (29993);Gait Training (14540);Functional training;General Conditioning;Body Mechanics Training;Patient/Family/Caregiver Education PLAN FOR [...] states not very common but more off balance. 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 MD felt coming here was a good idea. Uses cane in the grass. Patient Goals: Walk more stable. Functional Limitations: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 noted above and increased medial- lateral sway, reduced R > L reciprocal arm [...] of attendance for recovery, team concept, and diagnosis/pathophysiology/prognosis. Pt is in agreement with plan, and all questions at this time were answered. CPT Code 41108 Low 35788 Moderate 40624 High History 0 1-2 3+ Comorbidities: chronic [...] Clinical Impression: . Kevin Griffith presents to [facility] outpatient neurological rehab services for PT assessment [...] however, he does not live locally. Thus, thepatient elected to continue with therapy at a [...] above number. Sarah Mckenzie, PT STATE LICENSE, PT.[id number] documented in this [id number] Instructions* Patient Instructions* Barb Morton MD - 10/05/2021 11:[address] Head Physical therapy DATSCAN-the yes/no Parkinson's disease test Jim Bradford is the navigator Dr. Barb Morton MD Neurology Office Information Jaspreet Qureshi MA Office# documented in this [id number] History of Present illness Narrative* Barb Morton MD - 10/05/2021 11:04 AM EST Subjective Patient ID: Kevin Griffith is a [...] past medical history, past social history, past surgicalhistory and problem list. Review of Systems Constitutional: [...] medication and whether he wants to follow-up hereor in [place] as it is significantly closer to home. He believes that he would still want HIFU. If the test is negative he would like to continue to have the high- frequency ultrasound and will needto follow-up in clinic once. Diagnoses and all orders for this visit: Tremor - NM Brain Datscan SPECT CT Single Area Single Day; Future - CT Head Or Brain Without Contrast; Future - Ambulatory Ref to [facility] (PT/OT/ST); Future Patient Instructions Tremor CT Head Physical therapy DATSCAN-the yes/no Parkinson's disease test Jim Suzette is the navigator Dr. Barb Morton MD Neurology Office Information Jaspreet Qureshi MA Office# Dr. Barb Morton MD Neurology Office Information Jaspreet Qureshi MA Office# Barb Morton MD documented in this [id number] History of Present illness Narrative* Roberto Carlos Gutierrez RN - 05/19/2021 10:20 AM EDT Discharge information given to the patient. Patient and family verbalized understanding of information. All questions were answered before discharge. Patient ambulated, denies dizziness or nausea. Tolerating PO fluids and crackers. Vital signs are stable. Patient has changed and is being discharged home in a wheelchair with valuables. IV discontinued and dressing in place. * Roberto Carlos Gutierrez RN - 05/19/2021 8:54 AM EDT Patient arrived to recovery monitor applied. Dr. Frazier at bedside order for EKG entered for hypotensive event. Patient responds to voice, nasal airway in place with simple mask at 10 LPM oxygen. public health technologist called. * Mame Machado PA-C - 05/19/2021 8:17 AM EDT Patient brought to OR for implantation of spinal stimulator today. Patient with history of cardiac arrest during last lumbar surgery with general anesthesia. During induction patient's blood pressuredropped to 60s systolic and 40s diastolic. In light of patient's history, the decision was made to cancel the case. Patient's informed. Mame Machado PA-C documented in this encounterSUMMA Work Phone: [phone] Hospital Discharge instructions* Instructions* Kori Casillas RN - 05/05/2021 Shower with the Hibiclens product given to you in Pre-Admission Testing. Follow the instructions and wear clean clothes to bed and clean linen on the bed the night before surgery. Follow the instructions and shower the morning of surgery and wear clean, comfortable clothes to the hospital. Please bring your [facility] Surgical Information folder on the day of surgery. Please donnell the last dose taken (date and time [...] You may take Tylenol (Acetaminophen) if needed forpain. No Motrin, Ibuprofen, or Advil 24 hours [...] call your surgeon. You may use the rocket scientist parking located at the main entrance on [address] [place] [address] and take the H elevator to the first floor for same day surgery. Take a left after exiting the elevator and check in at the desk. * Attachments The following attachments cannot be sent through Care Everywhere. * Laminotomy and Laminectomy: General Info (Dutch) documented in this encounterSUMMA Work Phone: Discharge summary Author Surya Dumont [facility] Note Date/Time April 09, 2025 12:55 pm [facility] Medical Records Department [address] [place] [address] Emergency Department Summary 04/09/25 MR#: [id number] Acct: [id number] Name: LAINEYFAUSTINAKEVIN Rep #:[id number] 08 : 1945 79 From: Surya Dumont MD PCP: Dr. Ron Cooley MD Status:RE G ER Location: ED HPI History of Present Illness Chief Complaint: Head Injury Narrative Narrative: 79-year-old male past medical history of Parkinson's disease and chronic neck pain presents status post fall. He also has past medical history of diabetes. His daughter presents him because although he frequently falls, a few hours ago this morning, he fell and hit his head against a light switch. He denies loss of consciousness, no new neck pain. They checked his sugar recently and it was low at 66 so his daughter is making him eat. He is unsure of his last tetanus immunization. He denies other injury. He states he does not take blood thinners. Tetanus Immunization: <5 years PFSH [facility] Medical History Parkinson's disease Right bundle branch block (RBBB) Obesity Type 2 diabetes mellitus Essential (primary) hypertension Cataract Back problem Arthritis HLD (hyperlipidemia) Paroxysmal atrial fibrillation Home Medications ?Medication ?Instructions ?Recorded ?Last Taken ?Type pravastatin 80 mg tablet 80 mg PO QDAY 04/06/18 Unkno wn History fluticasone fur. 200 mcg-umeclid 1 inh inhalation LIVIA Y 04/12/22 Unknown History 62.5 mcg-vilant 25 mcg inhalat.powder (Trelegy Ellipta) pantoprazole 40 mg tablet,delayed 40 mg PO DAILY 04/12 Unknown History release finasteride 5 mg tablet 5 mg PO DAILY 04/11/23 Unkno wn History alfuzosin 10 mg tablet,extended 10 mg PO DAILY 3 Unknown History release 24 hr cholecalciferol (vitamin D3) 25 50 mcg PO DAILY Unknown History mcg (1,000 unit) capsule insulin aspart U-100 100 unit/mL See Rx Instructions . Route .COMPLEX 04/12/23 Unknown History subcutaneous solution (Novolog U-100 Insulin aspart) metformin 750 mg tablet,extended 750 mg PO QHS 3 Unknown History release 24 hr ascorbic acid (vitamin C) 1,000 mg 1 g PO DAILY Unknown History capsule insulin glargine U-300 conc 300 60 unit subcut DAILY 0 06/27/24 Unknown History unit/mL (3 mL) subcutaneous pen (Toujeo Max U-300 SoloStar) zinc gluconate 30 mg tablet 30 mg PO DAILY 06/27/24 Un known History hydrocodone-acetaminophen 5-325mg 1 tab PO Q6H PRN PRN Pain 4 days 10/12/24 Unknown Rx 5mg-325mg #15 TABLETS ropinirole 2 mg tablet 2 mg PO TID #270 tabs Unknown Rx carbidopa 25 mg-levodopa 100 mg 2 tab PO .QID #720 tab s 03/31/25 Unknown Rx tablet doxepin 25 mg capsule 25 mg PO QHS #90 caps Unknown Rx propranolol 60 mg capsule,24 60 mg PO DAILY #90 caps 0 03/31/25 Unknown Rx hr,extended release Allergy/AdvReac Type Severity Reaction Status Date / Time metoclopramide (From Reglan) Allergy Severe HYPER Verified 03/20/25 15:21 Family History Father Leukemia Surgical History History of total left knee replacement (TKR) History of left tennis elbow Hx of spinal fusion History of skin cancer Social History household members: spouse housing: house Smoking Status: Former smoker alcohol intake: never substance use type: does not use ROS ROS ED ROS Narrative Review of systems positive for fall without loss of consciousness. Sustained laceration to left front scalp. Abrasion on forehead from previous fall. No new neck pain. No other injury. Reported low blood sugar prior to arrival. EXAM Physical Exam Narrative Exam Narrative: GCS 15. ABCs intact. HEENT examination does show a 2 cm laceration on the leftfrontal scalp without active bleeding, no apparent galeal involvement. PERRL, EOMI. Neck without vertebral point tenderness or bony step-off. Cardiovascularexamination regular rate and rhythm, lungs clear to auscultation bilaterally. Abdomen is soft, nontender, with positive bowel sounds. Neurological examination shows him to be awake, alert, oriented to person place and time, interactive, able to raise arms, currently eating a hamburger. Const Vital Signs: 04/09/25 11:18 04/09/25 11:28 Temperature 97.6 F L Temperature Source Temporal Pulse Rate 75 Respiratory Rate 18 Respiratory Effort Normal Respiratory Depth Normal Respiratory Pattern Normal Blood Pressure 162/81 H Blood Pressure Mean 108 Pulse Ox 96 Oxygen Delivery Method Room Air Room Air MDM MDM MDM Narrative Medical decision making narrative: The differential diagnosis includes but not limited to closed head injury versusintracranial hemorrhage versus skull fracture. He may also have a cervical spine fracture, but he has history of chronic pain. CT imaging obtained of the brain and of the cervical spine. I reviewed his prior records and his immunization/Tdap is current, given in November of this year. CT of the cervical spine and brain obtained and I reviewed the radiology reports, there is no acute intracranial hemorrhage noted, no significant change from prior exam, CT of the cervical spine shows no fracture but degenerative changes. Procedure note: Wound was cleansed using Shur-Clens and normal saline. Through exploration there is no apparent galeal involvement. The 2 cm laceration was closed using 5 surgical brandi after lidocaine 1% was used as a local anesthetic via injection. Patient tolerated procedure well. At this point in time, I feel he can be discharged to follow-up with his primarycare provider in 7 to 10 days for surgical staple removal. He was also told as well as his daughter that they are free to return to the emergency department. Return instructions to the emergency department were reviewed. Disposition is discharged home in stable condition. History & Record Review Discussion w/independent historian: Patient and Family Radiography Diagnostic Testing: Clinical Impression(s) from Imaging Studies Brain CT 04/09/25 11:34 IMPRESSION: 1. Small vessel ischemic/degenerative changes. 2. Generalized brain atrophy. 3. No acute intracranial hemorrhage, midline shift or mass effect. If symptoms persist, further evaluation with MRI is recommended. 4. No significant change from the prior exam. Reading Location: [facility] Cervical Spine CT 04/09/25 11:34 IMPRESSION: 1. No acute fracture. 2. Degenerative changes of the cervical spine as described. Reading Location: [facility] Discharge Plan Triage Chief Complaint: Head Injury ED Provider: Surya Dumont Dx/Rx/DC Orders Clinical Impression: Fall, Laceration of scalp Instructions: ED Head Injury (Adult), ED Laceration Scalp Stitches or [place] Prescriptions: No Action pravastatin 80 mg tablet 80 mg PO QDAY metformin 750 mg tablet extended release 24 hr 750 mg PO QHS insulin aspart U-100 [Novolog U-100 Insulin aspart] 100 unit/mL solution See Rx Instructions .ROUTE .COMPLEX Patient Comments: Sliding scale Rx Instructions: Sliding scale Trelegy Ellipta 200-62.5-25 mcg blister with device 1 inh inhalation DAILY pantoprazole 40 mg tablet,delayed release (DR/EC) 40 mg PO DAILY cholecalciferol (vitamin D3) 25 mcg (1,000 unit) capsule 50 mcg PO DAILY alfuzosin 10 mg tablet extended release 24 hr 10 mg PO DAILY Rx Instructions: administer after the same meal each day insulin glargine U-300 conc [Toujeo Max U-300 SoloStar] 300 unit/mL (3 mL) insulin pen 60 unit subcut DAILY finasteride 5 mg tablet 5 mg PO DAILY zinc gluconate 30 mg tablet 30 mg PO DAILY ascorbic acid (vitamin C) 1,000 mg capsule 1 g PO DAILY ropinirole 2 mg tablet 2 mg PO TID Qty: 270 1RF carbidopa-levodopa 25-100 mg tablet 2 tab PO .QID Qty: 720 0RF doxepin 25 mg capsule 25 mg PO QHS Qty: 90 1RF propranolol 60 mg capsule,extended release 24 hr 60 mg PO DAILY Qty: 90 1RF hydrocodone-acetaminophen 5-325 mg tablet 1 tab PO Q6H PRN PRN (Reason: Pain) 4 Days Qty: 15 0RF Primary Care Provider: Ron Cooley Referrals: Ron Cooley MD [Primary Care Provider] - 10 Day for suture removal Activity Restrictions/Additional Instructions: Have brandi removed by your primary care provider in 7 to 10 days. There were a total of 5 brandi inserted. Return to the emergency department with fever, drainage of pus from wound, new or worsening symptoms. Print Language: Dutch Disposition Disposition: Home, Self Care What to do if you have Problems For any increased pain, shortness of breath, bleeding, nausea or vomiting, chestpain, or any unexpected problems, contact your Primary Care Provider. Call [facility] ([phone]) or report to the closest Emergency Room. Call 911 if necessary. 04/09/25 8820 <Electronically signed by Surya Dumont MD> Cosigner Signature (if applicable): CC: Dr. Ron Cooley MD ~ Signed [facility] Work Phone: Evaluation note* Diagnosis Pre-op testing- Primary Preoperative examination, unspecified Abnormal EKG Nonspecific abnormal electrocardiogram (ECG) (EKG) Shortness of breath documented in this encounter [facility] Work Phone: Evaluation note* Diagnosis Abnormal electrocardiogram (ECG) (EKG) Shortness of breath Pre-op testing Preoperative examination, unspecified Abnormal EKG Nonspecific abnormal electrocardiogram (ECG) (EKG) documented in this encounter [facility] Work Phone: Evaluation note* Diagnosis Tremor, essential- Primary Essential and other specified forms of tremor documented in this encounter [facility] note* Diagnosis Tremor- Primary Abnormal involuntary movements documented in this encounter [facility] note* Diagnosis Tremor Abnormal involuntary movements Impaired mobility and activities of daily living Impairment of balance documented in this encounter [facility] note* Diagnosis Parkinson's disease (HCC)- Primary Paralysis agitans documented in this encounter [facility] noteNo assessment information availableWSelect Medical Special[facility] Work Phone: Evaluation note* Diagnosis Parkinsonism, unspecified Parkinsonism type (HCC)- Primary Essential tremor Essential and other specified forms of tremor Dysphagia, unspecified type Gait instability Abnormality of gait documented in this encounter [facility] note* Diagnosis Parkinsonism, unspecified Parkinsonism type (HCC)- Primary Dysphagia, oropharyngeal phase Dysarthria documented in this encounter [facility] note* Diagnosis Parkinson disease (HCC)- Primary Paralysis agitans documented in this encounter [facility] note* Diagnosis Gait instability- Primary Abnormality of gait Parkinsonism, unspecified Parkinsonism type (HCC) Dysphasia Other speech disturbance Oropharyngeal dysphagia Dysphagia, oropharyngeal phase Decreased activities of daily living (ADL) documented in this encounter [facility] note* Diagnosis Onset Date Resolution Status Essential (primary) hypertension chronic Paroxysmal atrial fibrillation [facility] Work Phone: Evaluation note* Diagnosis Parkinsonism, unspecified Parkinsonism type (HCC)- Primary Depression, unspecified depression type Anxiety Anxiety state, unspecified Orthostatic lightheadedness Dizziness and giddiness Dysphagia, unspecified type documented in this encounter [facility] note* Diagnosis Parkinsonism, unspecified Parkinsonism type (HCC)- Primary Gait instability Abnormality of gait Leg weakness, bilateral Other musculoskeletal symptoms referable to limbs Imbalance Abnormality of gait documented in this encounter [facility] note* Diagnosis MELISSA (generalized anxiety disorder)- Primary Generalized anxiety disorder Depression, unspecified depression type Parkinsonism, unspecified Parkinsonism type (HCC) documented in this encounter [facility] note* Diagnosis Parkinsonism, unspecified Parkinsonism type (HCC)- Primary Gait instability Abnormality of gait Leg weakness, bilateral Other musculoskeletal symptoms referable to limbs Imbalance Abnormality of gait documented in this encounter [facility] note* Diagnosis Parkinsonism, unspecified Parkinsonism type (HCC)- Primary Orthostatic hypotension Anxiety Anxiety state, unspecified documented in this encounter [facility] note* Diagnosis Onset Date Resolution Status Parkinsons acute Essential (primary) hypertension chronic HLD (hyperlipidemia) chronic Paroxysmal atrial fibrillation [facility] Work Phone: Evaluation note* Diagnosis Onset Date Resolution Status Polyneuropathy acute Abnormality of gait and mobility chronic Dementia chronic Parkinson's disease chronic Essential (primary) hypertension chronic HLD (hyperlipidemia) chronic Paroxysmal atrial fibrillation chronic [facility] Work Phone: Evaluation note* Diagnosis Onset Date Resolution Status Abnormality of gait and mobility chronic Dementia chronic Parkinson's disease chronic Polyneuropathy chronic Fatigue noneactive [facility] Work Phone: Evaluation note* Diagnosis Onset Date Resolution Status Diplopia acute Right abducens nerve palsy a cute Abnormality of gait and mobility chronic Dementia chronic Parkinson's disease chronic Polyneuropathy chronic [facility] Work Phone: Evaluation note* Diagnosis Facial laceration, initial encounter- Primary Fall, initial encounter Open fracture of nasal bone, initial encounter [facility] Work Phone: [facility] Discharge instructions Additional Instructions [facility] boot [facility] Phone: Reason for Referral Status Reason Specialty Diagnoses / Procedures Re ferred By Contact Referred To Contact Open Cardiology Diagnoses Pre-op testing Abnormal EKG Shortness of breath Procedures ECHO Pharmacological Stress Test Raeann Holland, REGULATORY AFFAIRS SPECIALIST - BI SOLUTIONS ARCHITECT 1 [facility] [address] [place] [address] Specialty Diagnoses / Procedures Referred By Contac t Referred To Contact Neurology Diagnoses Tremor, essential Jolliff, Patricia Ramon MD [address] [facility] [address] [place] [address] Barb Morton MD [address] [place] [address] [place] [address] Referral ID Status Reason Start Date Expiration Date V isits Requested Visits Authorized [id number] Pending Review 09/27/2021 09/27/2022 1 1 Specialty Diagnoses / Procedures Referred By Contac t Referred To Contact Rehabilitation Diagnoses Tremor Barb Morton MD [address] [place] [address] [place] [address] Referral ID Status Reason Start Date Expiration Date V isits Requested Visits Authorized [id number] Authorized 10/05/2021 10/05/2022 1 1 Specialty Diagnoses / Procedures Referred By Contac t Referred To Contact Radiology Diagnoses Tremor Procedures CT Head Or Brain Without Contrast Barb Morton MD [address] [place] [address] [place] [id number] Referral ID Status Reason Start Date Expiration Date V isits Requested Visits Authorized [id number] New Request 10/05/2021 10/05/2022 1 1 Specialty Diagnoses / Procedures Referred By Contac t Referred To Contact Radiology Diagnoses Tremor Procedures NM Brain Datscan SPECT CT Single Area Single Day Barb Morton MD [address] [place] [id number] [place] [address] Nuclear Medicine [address] [place] [phone] Referral ID Status Reason Start Date Expiration Date V isits Requested Visits Authorized [id number] Pending Review 10/05/2021 10/05/2022 4 4 Specialty Diagnoses / Procedures Referred By Contac t Referred To Contact Diagnoses Parkinsonism, unspecified Parkinsonism type (HCC) Procedures PROVIDER ORDERED FOLLOW UP OFFICE/OUTPATIENT [facility] 60-74 MINUTES Jaylyn Nieves MD [address] [address] Referral ID Status Reason Start Date Expiration Date Visits Requested Visits Authorized [id number] Authorized PCP Requested Referral 03/17/2022 06/15/2022 1 1 Specialty Diagnoses / Procedures Referred By Contac t Referred To Contact Neurology / NEUROLOGICAL CAODAISM Diagnoses Parkinsonism, unspecified Parkinsonism type (HCC) Procedures CONSULT TO [facility] OFFICE/OUTPATIENT [facility] 60-74 MINUTES Jaylyn Nieves MD [address] [place] [address] [place] [address] [place] [address] Referral ID Status Reason Start Date Expiration Date Visits Requested Visits Authorized [id number] Authorized PCP Requested Referral 03/17/2022 03/17/2023 1 1 Specialty Diagnoses / Procedures Referred By Contac t Referred To Contact [facility] Diagnoses Parkinsonism, unspecified Parkinsonism type (HCC) Gait instability Procedures CONSULT TO PHYSICAL THERAPY PHYSICAL THERAPY EVALUATION HIGH COMPLEX 45 MINS Jaylyn Nieves MD [address] [place] [address] [facility] [address] [address] Referral ID Status Reason Start Date Expiration Date Visits Requested Visits Authorized [id number] Authorized PCP Requested Referral Auto-Generate d Referral 03/29/2022 03/29/2023 99 99 Specialty Diagnoses / Procedures Referred By Contac t Referred To Contact [facility] Diagnoses Parkinsonism, unspecified Parkinsonism type (HCC) Gait instability Decreased activities of daily living (ADL) Procedures CONSULT TO PALLIATIVE SENIOR NP OCCUPATIONAL THERAPY EVAL HIGH COMPLEX 60 MINS Jaylyn iNeves MD [address] [place] [address] [address] Referral ID Status Reason Start Date Expiration Date Visits Requested Visits Authorized [id number] Authorized PCP Requested Referral Auto-Generate d Referral 03/29/2022 03/29/2023 99 99 Specialty Diagnoses / Procedures Referred By Contac t Referred To Contact Diagnoses Parkinsonism, unspecified Parkinsonism type (HCC) Oropharyngeal dysphagia Procedures CONSULT TO SPEECH THERAPY Jaylyn Nieves MD [address] [place] [address] Referral ID Status Reason Start Date Expiration Date Visits Requested Visits Authorized [id number] Authorized PCP Requested Referral 03/29/2022 06/27/2022 3 3 Referral ID Status Reason Start Date Expiration Date Visits Requested Visits Authorized [id number] Authorized PCP Requested Referral 08/04/2023 1 1 Specialty Diagnoses / Procedures Referred By Contac t Referred To Contact [facility] Diagnoses Parkinsonism, unspecified Parkinsonism type (HCC) Procedures CONSULT TO PHYSICAL THERAPY PHYSICAL THERAPY EVALUATION HIGH COMPLEX 45 MINS Jaylyn Nieves MD [address] [place] [address] [address] Referral ID Status Reason Start Date Expiration Date Visits Requested Visits Authorized [id number] Authorized PCP Requested Referral Auto-Generate d Referral 08/04/2022 08/04/2023 99 99 Specialty Diagnoses / Procedures Referred By Contac t Referred To Contact Diagnoses Parkinsonism, unspecified Parkinsonism type (HCC) Depression, unspecified depression type Procedures CONSULT TO PSYCHIATRY OFFICE/OUTPATIENT NEW HIGH MDM 60-74 MINUTES Jaylyn Nieves MD [address] [id number] Referral ID Status Reason Start Date Expiration Date Visits Requested Visits Authorized [id number] Pending Review PCP Requested Referral 08/04/2022 08/04/2023 1 1 Specialty Diagnoses / Procedures Referred By Contac t Referred To Contact Diagnoses Depression, unspecified depression type Procedures PROVIDER ORDERED FOLLOW UP OFFICE/OUTPATIENT NEW HIGH MDM 60-[place] [address] [address] [phone] Referral ID Status Reason Start Date Expiration Date Visits Requested Visits Authorized [id number] Authorized PCP Requested Referral 11/28/2022 09/02/2023 1 1 Specialty Diagnoses / Procedures Referred By Contac t Referred To Contact [facility] Diagnoses Parkinsonism, unspecified Parkinsonism type (HCC) Procedures CONSULT TO PALLIATIVE SENIOR NP OCCUPATIONAL THERAPY EVAL HIGH COMPLEX 60 MINS Leni Ruiz, REGULATORY AFFAIRS SPECIALIST.BI SOLUTIONS ARCHITECT [address] [place] [address] [facility] [address] [address] Referral ID Status Reason Start Date Expiration Date Visits Requested Visits Authorized [id number] Authorized PCP Requested Referral Auto-Generate d Referral 12/12/2022 12/12/2023 99 99 Specialty Diagnoses / Procedures Referred By Contac t Referred To Contact [facility] Diagnoses Parkinsonism, unspecified Parkinsonism type (HCC) Procedures CONSULT TO PHYSICAL THERAPY PHYSICAL THERAPY EVALUATION HIGH COMPLEX 45 MINS Leni Ruiz, REGULATORY AFFAIRS SPECIALIST.BI SOLUTIONS ARCHITECT [address] [place] [address] [address] Referral ID Status Reason Start Date Expiration Date Visits Requested Visits Authorized [id number] Authorized PCP Requested Referral Auto-Generate d Referral 12/12/2022 12/12/2023 99 99 Advance Directives No Advanced Directives Records FoundDocuments on File Type Date Recorded 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 ACP-Advance Directive ACP-Power of Food And Beverage Associate Latest Code Status on File Code Status Date Activated Date Inactivated Comments Full Code 04/17/2018 6:13 AM 04/17/2018 1:26 PM Documents on File Type Date Recorded 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 ACP-Advance Directive ACP-Power of Food And Beverage Associate Latest Code Status on File Code Status Date Activated Date Inactivated Comments Full Code 05/19/2021 6:48 AM Full Code 04/17/2018 6:13 AM 04/17/2018 1:26 PM Documents on File Type Date Recorded 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 Advance Directives and Living Will Documents on File Type Date Recorded 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 Advance Directives and Living Will Documents on File Type Date Recorded 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 Advance Directives and Livin g Will 11/01/2021 10:44 AM Advance Directive Response Recorded Date/ Time Living Will Yes January 28, 2022 2:22am Power of Food And Beverage Associate Yes January 28 2:22am Advance Directive Response Recorded Date/ Time Name of Medical Power of Food And Beverage Associate BRENNEN GRIFFITH ( ) January 28, 2022 2:22am Living Will Yes January 28, 2022 2:22am Power of Food And Beverage Associate Yes January 28 2:22am Advance Directive Response Recorded Date/ Time Living Will Yes January 28, 2022 1:22am Power of Food And Beverage Associate Yes January 28 1:22am Advance Directive Response Recorded Date/ Time Name of Medical Power of Food And Beverage Associate February 11, 2023 12:56pm Living Will Yes February 11, 2023 12:56pm Power of Food And Beverage Associate Yes February 11 12:56pm Advance Directive Response Recorded Date/ Time Living Will Yes February 11, 2023 12:56pm Power of Food And Beverage Associate Yes February 11 12:56pm Advance Directive Response Recorded Date/ Time Living Will Yes February 11, 2023 11:56am Power of Food And Beverage Associate Yes February 11 11:56am Advance Directive Response Recorded Date/ Time Living Will Yes February 11, 2023 12:56pm Power of Food And Beverage Associate Yes February 11 12:56pm Living Will Yes October 12 12:40pm Power of Food And Beverage Associate Yes October 12, 2024 12:40pm Name of Medical Power of Food And Beverage Associate brennen griffith October 12, 2024 12:40pm Living Will Yes December 05 6:16pm Power of Food And Beverage Associate Yes December 05, 2024 6:16pm Name of Medical Power of Food And Beverage Associate BRENNEN GRIFFITH December 05, 2024 6:16pm Advance Directive Response Recorded Date/ Time Living Will Yes February 11, 2023 12:56pm Do you have a Healthcare Power of Food And Beverage Associate? Yes February 11, 2023 12:56pm Living Will Yes December 05 6:16pm Do you have a Healthcare Power of Food And Beverage Associate? Yes December 05, 2024 6:16pm Name of Medical Power of Food And Beverage Associate BRENNEN GRIFFITH December 05, 2024 6:16pm Living Will No February 14, 2025 9:21pm Do you have a Healthcare Power of Food And Beverage Associate? No February 14, 2025 9:21pm Advance Directive Response Recorded Date/ Time Living Will Yes February 11, 2023 12:56pm Do you have a Healthcare Power of Food And Beverage Associate? Yes February 11, 2023 12:56pm Living Will No February 14, 2025 9:21pm Do you have a Healthcare Power of Food And Beverage Associate? No February 14, 2025 9:21pm Advance Directive Response Recorded Date/ Time Living Will Yes February 11, 2023 12:56pm Do you have a Healthcare Power of Food And Beverage Associate? Yes February 11, 2023 12:56pm Living Will No February 14, 2025 9:21pm Do you have a Healthcare Power of Food And Beverage Associate? No February 14, 2025 9:21pm Do you have a Healthcare Power of Food And Beverage Associate? Yes April 09, 2025 11:28am Healthcare Agents on File Name Relationship Healthcare Agent Relationshi p Communication Brennen Griffith Spouse First Alternate Health Care Agent Summary Purpose Family History No Family History Records Found Relationship Condition Age at Onset Recorded Date/T jose father Leukemia Unknown Chief Complaint and Reason for Visit Chief Complaint ASTHMA CAN'T SLEEP Chief Complaint ASTHMA CAN'T SLEEP 1 Y FU Reason for Visit Essential (primary) hypertension Paroxysmal atrial fibrillation Chief Complaint CAN'T SLEEP 1 Y FU Other specified symptoms and signs involving the c Reason for Visit Essential (primary) hypertension Paroxysmal atrial fibrillation Chief Complaint 1 Y FU Other specified symptoms and signs involving the c URINE DROPOFF Reason for Visit Essential (primary) hypertension Paroxysmal atrial fibrillation Chief Complaint URINE DROPOFF labs and xray- - for knee pain Chief Complaint labs and xray- dr.ni ureña- for knee pain Chief Complaint fall Chief Complaint fall Parkinson's disease 1 Y FU PARKINSONS,LOSS OF BALANCE RX HERE Reason for Visit Parkinsons Essential (primary) hypertension HLD (hyperlipidemia) Paroxysmal atrial fibrillation Chief Complaint fall Parkinson's disease 1 Y FU PARKINSONS,LOSS OF BALANCE RX HERE Reason for Visit Polyneuropathy Abnormality of gait and mobility Dementia Parkinson's disease Essential (primary) hypertension HLD (hyperlipidemia) Paroxysmal atrial fibrillation Chief Complaint fall Parkinson's disease 1 Y FU PARKINSONS,LOSS OF BALANCE RX HERE GAIT DISORDER Reason for Visit Polyneuropathy Abnormality of gait and mobility Dementia Parkinson's disease Essential (primary) hypertension HLD (hyperlipidemia) Paroxysmal atrial fibrillation Chief Complaint Parkinson's disease 1 Y FU PARKINSONS,LOSS OF BALANCE RX HERE GAIT DISORDER Reason for Visit Polyneuropathy Abnormality of gait and mobility Dementia Parkinson's disease Essential (primary) hypertension HLD (hyperlipidemia) Paroxysmal atrial fibrillation Chief Complaint Parkinson's disease 1 Y FU PARKINSONS,LOSS OF BALANCE RX HERE GAIT DISORDER TREMOR TREMOR Reason for Visit Polyneuropathy Abnormality of gait and mobility Dementia Parkinson's disease Essential (primary) hypertension HLD (hyperlipidemia) Paroxysmal atrial fibrillation Chief Complaint 4 M FU B12 inject 3 M FU Reason for Visit Abnormality of gait and mobility Dementia Parkinson's disease Polyneuropathy Fatigue Chief Complaint B12 inject 3 M FU EORDER Chief Complaint B12 inject 3 M FU EORDER XRAYS- CHEST AND KNEES Chief Complaint 3 M FU EORDER XRAYS- CHEST AND KNEES COUGH AND SOB Chief Complaint EORDER XRAYS- CHEST AND KNEES COUGH AND SOB 4 M FU 2 ORDERING ERNESTINA DARLING FROM DR SANTO Reason for Visit Diplopia Right abducens nerve palsy Abnormality of gait and mobility Dementia Parkinson's disease Polyneuropathy Chief Complaint 4 M FU B12 inject Reason for Visit Abnormality of gait and mobility Dementia Parkinson's disease Polyneuropathy Fatigue Chief Complaint Admit Date RIB October 12, 2024 11:15am FALL December 05, 2024 4 :29pm 3 month f/u December 10, 2024 1 0:37am EORDER- CXR January 21, 2025 10:3 1am Reason for Visit Admit Date Diplopia December 10, 2024 1 0:37am Dysphagia December 10, 2024 1 0:37am Abnormality of gait and mobility December 10, 2024 10:37am Dementia December 10, 2024 1 0:37am Parkinson's disease December 10, 2024 1 0:37am Polyneuropathy December 10, 2024 1 0:37am Chief Complaint Admit Date FALL December 05, 2024 4 :29pm 3 month f/u December 10, 2024 1 0:37am EORDER- CXR January 21, 2025 10:3 1am F[place]QUENT F[place]S February 06, 2025 1:0 0pm head injury February 14, 2025 9:1 0pm Reason for Visit Admit Date Diplopia December 10, 2024 1 0:37am Dysphagia December 10, 2024 1 0:37am Abnormality of gait and mobility December 10, 2024 10:37am Dementia December 10, 2024 1 0:37am Parkinson's disease December 10, 2024 1 0:37am Polyneuropathy December 10, 2024 1 0:37am Diplopia February 06, 2025 1:0 0pm Dysphagia February 06, 2025 1:0 0pm Abnormality of gait and mobility January 192024 1:00pm Dementia February 06, 2025 1:0 0pm Parkinson's disease February 06, 2025 1:0 0pm Polyneuropathy February 06, 2025 1:0 0pm Chief Complaint Admit Date FALL December 05, 2024 4 :29pm 3 month f/u December 10, 2024 1 0:37am EORDER- CXR January 21, 2025 10:3 1am [place]QU[place] February 06, 2025 1:0 0pm head injury February 14, 2025 9:1 0pm DYSPHAGIA, CVA. RX HERE February 25, 2025 2:25pm Chief Complaint Admit Date FALL December 05, 2024 4 :29pm 3 month f/u December 10, 2024 1 0:37am EORDER- CXR January 21, 2025 10:3 1am [place] February 06, 2025 1:0 0pm head injury February 14, 2025 9:1 0pm 6 wk FU March 20, 2025 3:22pm Moderate persistent asthma, uncomplicate d March 24, 2025 6:38pm DYSPHAGIA, CVA. RX HERE March 26, 2025 12 :30pm Chief Complaint Admit Date 3 month f/u December 10, 2024 1 0:37am EORDER- CXR January 21, 2025 10:3 1am [place] February 06, 2025 1:0 0pm head injury February 14, 2025 9:1 0pm 6 wk FU March 20, 2025 3:22pm Moderate persistent asthma, uncomplicate d March 24, 2025 6:38pm DYSPHAGIA, CVA. RX HERE April 01, 2025 3 :00pm Reason for Visit Admit Date Diplopia December 10, 2024 1 0:37am Dysphagia December 10, 2024 1 0:37am Abnormality of gait and mobility December 10, 2024 10:37am Dementia December 10, 2024 1 0:37am Parkinson's disease December 10, 2024 1 0:37am Polyneuropathy December 10, 2024 1 0:37am Diplopia February 06, 2025 1:0 0pm Dysphagia February 06, 2025 1:0 0pm Abnormality of gait and mobility January [address]24 1:00pm Dementia February 06, 2025 1:0 0pm Parkinson's disease February 06, 2025 1:0 0pm Polyneuropathy February 06, 2025 1:0 0pm Dysphagia March 20, 2025 3:22pm Abnormality of gait and mobility March 3:22pm Dementia March 20, 2025 3:22pm Parkinson's disease March 20, 2025 3:22pm Polyneuropathy March 20, 2025 3:22pm Chief Complaint Admit Date 3 month f/u December 10, 2024 1 0:37am EORDER- CXR January 21, 2025 10:3 1am [place] February 06, 2025 1:0 0pm head injury February 14, 2025 9:1 0pm 6 wk FU March 20, 2025 3:22pm Moderate persistent asthma, uncomplicate d March 24, 2025 6:38pm DYSPHAGIA, CVA. RX HERE April 01, 2025 3 :00pm head injury April 09, 2025 11:18 am Additional Source Comments Source Comments (unrecognize d section and content) In the event this informatio n is protected by the Federal Confidentiality of Alcohol and Drug Abuse Patient Records regulations: The Federal rules restrict any use of the information to criminally investigate or prosecute any alcohol or drug abuse patient.[facility] the event this information is protected by the Federal Confidentiality of Alcohol and Drug Abuse Patient Records regulations: The Federal rules restrict any use of the information to criminally investigate or prosecute any alcohol or drug abuse patient.[facility] Campus[facility] the event this information is protected by the Federal Confidentiality of Alcohol and Drug Abuse Patient Records regulations: The Federal rules restrict any use of the information to criminally investigate or prosecute any alcohol or drug abuse patient.[facility] Campus[facility] the event this information is protected by the Federal Confidentiality of Alcohol and Drug Abuse Patient Records regulations: The Federal rules restrict any use of the information to criminally investigate or prosecute any alcohol or drug abuse patient.[facility] Campus[facility] the event this information is protected by the Federal Confidentiality of Alcohol and Drug Abuse Patient Records regulations: The Federal rules restrict any use of the information to criminally investigate or prosecute any alcohol or drug abuse patient.[facility] Campus[facility] the event this information is protected by the Federal Confidentiality of Alcohol and Drug Abuse Patient Records regulations: The Federal rules restrict any use of the information to criminally investigate or prosecute any alcohol or drug abuse patient.[facility] Campus[facility] the event this information is protected by the Federal Confidentiality of Alcohol and Drug Abuse Patient Records regulations: The Federal rules restrict any use of the information to criminally investigate or prosecute any alcohol or drug abuse patient.[facility] the event this information is protected by the Federal Confidentiality of Alcohol and Drug Abuse Patient Records regulations: The Federal rules restrict any use of the information to criminally investigate or prosecute any alcohol or drug abuse patient.[facility] Campus[facility] the event this information is protected by the Federal Confidentiality of Alcohol and Drug Abuse Patient Records regulations: The Federal rules restrict any use of the information to criminally investigate or prosecute any alcohol or drug abuse patient.[facility] Campus[facility] the event this information is protected by the Federal Confidentiality of Alcohol and Drug Abuse Patient Records regulations: The Federal rules restrict any use of the information to criminally investigate or prosecute any alcohol or drug abuse patient.[facility] Campus[facility] the event this information is protected by the Federal Confidentiality of Alcohol and Drug Abuse Patient Records regulations: The Federal rules restrict any use of the information to criminally investigate or prosecute any alcohol or drug abuse patient.[facility] Campus[facility] the event this information is protected by the Federal Confidentiality of Alcohol and Drug Abuse Patient Records regulations: The Federal rules restrict any use of the information to criminally investigate or prosecute any alcohol or drug abuse patient.[facility] Campus[facility] the event this information is protected by the Federal Confidentiality of Alcohol and Drug Abuse Patient Records regulations: The Federal rules restrict any use of the information to criminally investigate or prosecute any alcohol or drug abuse patient.[facility] CampusIn the event this information is protected by the Federal Confidentiality of Alcohol and Drug Abuse Patient Records regulations: The Federal rules restrict any use of the information to criminally investigate or prosecute any alcohol or drug abuse patient.[facility] CampusIn the event this information is protected by the Federal Confidentiality of Alcohol and Drug Abuse Patient Records regulations: The Federal rules restrict any use of the information to criminally investigate or prosecute any alcohol or drug abuse patient.[facility] CampusIn the event this information is protected by the Federal Confidentiality of Alcohol and Drug Abuse Patient Records regulations: The Federal rules restrict any use of the information to criminally investigate or prosecute any alcohol or drug abuse patient.[facility] CampusIn the event this information is protected by the Federal Confidentiality of Alcohol and Drug Abuse Patient Records regulations: The Federal rules restrict any use of the information to criminally investigate or prosecute any alcohol or drug abuse patient.[facility] CampusIn the event this information is protected by the Federal Confidentiality of Alcohol and Drug Abuse Patient Records regulations: The Federal rules restrict any use of the information to criminally investigate or prosecute any alcohol or drug abuse patient.[facility] CampusIn the event this information is protected by the Federal Confidentiality of Alcohol and Drug Abuse Patient Records regulations: The Federal rules restrict any use of the information to criminally investigate or prosecute any alcohol or drug abuse patient.[facility] CampusIn the event this information is protected by the Federal Confidentiality of Alcohol and Drug Abuse Patient Records regulations: The Federal rules restrict any use of the information to criminally investigate or prosecute any alcohol or drug abuse patient.[facility] Reason for Visit (unrecogniz ed section and content) Reason Comments Parkinsonism, unspecified Parkinsonism t ype (HCC) Specialty Diagnoses / Procedures Referred By Contac t Referred To Contact Diagnoses Parkinsonism, unspecified Parkinsonism type ([facility]) Procedures PROVIDER ORDERED FOLLOW UP OFFICE/OUTPATIENT NEW HIGH MDM 60-74 MINUTES Jaylyn Nieves MD [address] [facility] [address] [place] [address] Referral ID Status Reason Start Date Expiration Date V isits Requested Visits Authorized [id number] Closed PCP Requested Referral 11/03/2022 08/04/2023 1 1 Status Reason Specialty Diagnoses / Procedures Re ferred By Contact Referred To Contact Open Cardiology Diagnoses Pre-op testing Abnormal EKG Shortness of breath Procedures ECHO Pharmacological Stress Test Raeann Holland, REGULATORY AFFAIRS SPECIALIST - BI SOLUTIONS ARCHITECT 1 [facility] [address] [place] [address] Reason Comments Consult Ref by: PATRICIA MCGOWAN 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,essential ([facility] interest - saw us on the website), Tremors Dx; ET approx 1 year Specialty Diagnoses / Procedures Referred By Contac t Referred To Contact Neurology Diagnoses Tremor, essential Patricia Mcgowan MD [address] [facility] [address] [place] [address] Barb Morton MD [address] [place] [id number] [place] [address] Referral ID Status Reason Start Date Expiration Date Visits Re quested Visits Authorized [id number] Closed 09/27/2021 09/27/2022 1 1 Reason Comments Physical Therapy Neuro Specialty Diagnoses / Procedures Referred By Contac t Referred To Contact Rehabilitation Diagnoses Tremor Barb Morton MD [address] [place] [id number] [place] [id number] [address] [address] [place] [address] Referral ID Status Reason Start Date Expiration Date V isits Requested Visits Authorized [id number] Authorized 10/05/2021 10/05/2022 1 199 Reason Onset Date Comments Medication Refill 11/05/2021 Reason Onset Date Comments Medication Refill 11/09/2021 Reason Comments Follow Up Parkinson's Reason Comments Upcoming Appointment Pre-rooming phone c all Reason Comments Speech Evaluation Specialty Diagnoses / Procedures Referred By Jackac t Referred To Contact Speech-Language Pathologist / SPEECH THERAPY Diagnoses PD Clinic Procedures [facility] Jaylyn Nieves MD [address] [address] Amaya Deleon, [facility] MAINTENANCE SUPERVISOR [address] [place] [address] Referral ID Status Reason Start Date Expiration Date V isits Requested Visits Authorized [id number] Authorized 03/29/2022 06/27/2022 99 99 Reason Comments PT Eval Patient Education Specialty Diagnoses / Procedures Referred By Michel t Referred To Contact Physical Therapy / PHYSICAL THERAPY Diagnoses PD Clinic Procedures [facility] Jaylyn Nieves MD [address] [place] [address] Maine Medel, PT, DPT [address] [place] [address] Referral ID Status Reason Start Date Expiration Date V isits Requested Visits Authorized [id number] Authorized 03/29/2022 06/27/2022 99 99 Specialty Diagnoses / Procedures Referred By Michel t Referred To Contact Neurology / NEUROLOGICAL CAODAISM Diagnoses Parkinsonism, unspecified Parkinsonism type (HCC) Procedures CONS[facility] TO [facility]ICE/OUTPATIENT [facility] MDM 60-74 MINUTES Jaylyn Nieves MD [address] [address] [facility] [address] [place] [address] Referral ID Status Reason Start Date Expiration Date V isits Requested Visits Authorized [id number] Closed PCP Requested Referral 03/17/2022 03/17/2023 1 1 Reason Onset Date Comments Refill Request 05/18/2022 Reason Comments Appointment Earlier appointment request d/t worsening symptoms Reason Comments Follow Up Referral ID Status Reason Start Date Expiration Date V isits Requested Visits Authorized [id number] Closed PCP Requested Referral 03/17/2022 06/15/2022 1 1 Reason Comments Physical Therapy Specialty Diagnoses / Procedures Referred By Contac t Referred To Contact [facility] Diagnoses Parkinsonism, unspecified Parkinsonism type (HCC) Procedures CONSULT TO PHYSICAL THERAPY PHYSICAL THERAPY EVALUATION HIGH COMPLEX 45 MINS Jaylyn Nieves MD [address] [address] [facility] [place] [address] [place] [address] Referral ID Status Reason Start Date Expiration Date Visits Requested Visits Authorized [id number] Authorized PCP Requested Referral Auto-Generate d Referral 08/04/2022 08/04/2023 99 99 Reason Comments New Patient Specialty Diagnoses / Procedures Referred By Michel higginbotham Referred To Contact Diagnoses Parkinsonism, unspecified Parkinsonism type (HCC) Depression, unspecified depression type Procedures CONSULT TO PSYCHIATRY OFFICE/OUTPATIENT [facility] MDM 60-74 MINUTES Jaylyn Nieves MD [address] [place] [id number] Referral ID Status Reason Start Date Expiration Date Visits Requested Visits Authorized [id number] Pending Review PCP Requested Referral 08/04/2022 08/04/2023 1 1 Reason Comments Patient Update Increased shaking in AM Reason Comments Other PD Symptoms Worsenin g Reason Comments Patient Update Reason Comments Patient Update Increased falls, agg ression Reason Comments Laceration (unrecognized sect ion and content) No Status Records FoundNo Status Records FoundNo Status Records FoundNo Status Records FoundNo Status Records FoundNo Status Records FoundNo Status Records FoundNo Status Records Found INFORMATION SOURCE (unrecogn ized section and content) DATE CREATED AUTHOR 05/13/2021 [facility] [employer] [facility] DATE CREATED AUTHOR AUTHOR'S ORGANIZ ATION 05/20/2021 [facility] DATE CREATED AUTHOR AUTHOR'S ORGANIZ ATION 12/22/2021 [facility] DATE CREATED AUTHOR AUTHOR'S ORGANIZ ATION 02/18/2023 [facility] DATE CREATED AUTHOR AUTHOR'S ORGANIZ ATION 02/19/2023 [facility] DATE CREATED AUTHOR AUTHOR'S ORGANIZ ATION 04/05/2025 [facility] DATE CREATED AUTHOR AUTHOR'S ORGANIZ ATION 04/18/2025 [facility] DATE CREATED AUTHOR AUTHOR'S ORGANIZ ATION 05/03/2025 [facility] Scheduled Active and Recently Administ ered Medications (unrecognized section and content) Medication Order 05/17/2021 05/18/2021 05/19/2021 acetaminophen (TYLENOL) tablet 1,000 mg (COMPLETED) 1,000 mg, Oral, ONCE, On Mon05/19/21 at 0715, For 1 dose, Maximum dose of acetaminophen is 4000 mg from all sources in 24 hours. Do not administer if patient has taken tylenol <4 hours earlier. Do not give if contraindicated ie. patient has active liver disease or cirrhosis., Pre-op (day of surgery) 708 (Given - Provid er: Asya Torre RN) ceFAZolin (ANCEF) 3,000 mg in dextrose 5 % 100 mL IVPB 3,000 mg, Intravenous, TELLER VAULT TO O.R., 1 dose, On Mon05/19/21 at 0715, Administer within 1 hour prior to incision. Recommend to repeat in 3-4 hours after initial dose if still intra-op., Pre-op (day of surgery) 714 (Due) famotidine (PEPCID) tablet 20 mg (COMPLETED) 20 mg, Oral, ONCE, On Mon05/19/21 at 0715, For 1 dose, Pre-op (day of surgery) 708 (Given - Provid er: Asya Torre RN) sodium chloride flush 0.9 % injection 5-40 mL 5-40 mL, Intravenous, EVERY 12 HOURS SCHEDULED (2 times per day), First dose on Mon05/19/21 at 0900, For Line Patency: Peripheral IV = 5 [...] = 20 mL/lumen, Pre-op (day of surgery) 0900 (Due)2100 (Due) Continuous Medication Order 05/17/2021 05/18/2021 05/19/2021 lactated ringers infusion Intravenous, at 50 mL/hr, CONTINUOUS, Starting on Mon05/19/21 at 0715, Upon admission to sameday - please start iv if patient does not have iv access. Use 500ml NS for patients on dialysis., Pre-op (day of surgery) 07 (New Bag - Prov ider: Asya Torre [...] For 1 dose
PHASE II
PACU only Scheduled Medication Order 04/11/2025 04/12/2025 04/13/2025 cephalexin (Keflex) capsule 500 mg (COMPLETED) 500 mg, Oral, Once, On Mon04/13/25 at 2145, For 1 dose, Suspected Indication (Select all that apply): Skin and Soft Tissue Infection 2228 (Given - Provid er: Cielo Valverde RN) lidocaine-EPINEPHrine (Xylocaine W/EPI) 1 %-1:618140 injection 10 mL (COMPLETED) 10 mL, Infiltration, Once, On 04/13/25 at 2100, For 1 dose 2228 (Given by Other - Provider: Cielo Valverde RN - Reason: Administered by Other (Comment Required) - Comment: naima) sulfamethoxazole-trimethoprim (Bactrim DS) 800-160 MG per tablet 1 tablet (COMPLETED) 1 tablet, Oral, Once, On 04/13/25 at 2145, For 1 dose, Suspected Indication (Select all that apply): Skin and Soft Tissue Infection 8 (Given - Provid er: Cielo Valverde RN) Care Teams (unrecognized sec tion and content) Tram Driver Relationship Specialty Start Date End Date Patricia Mcgowan MD [address] [facility] [address] [place], [place] [address] PCP - General Family Medicine 10/28/21 Tram Driver Relationship Specialty Start Date End Date Patricia Mcgowan MD [address] [facility] [address] [place], [place] [address] PCP - General Family Medicine 10/28/21 Tram Driver Relationship Specialty Start Date End Date Patricia Mcgowan MD [address] [facility] [address] [place], [place] [address] PCP - General Family Medicine 10/28/21 Tram Driver Relationship Specialty Start Date End Date Patricia Mcgowan MD [address] [place] [address] PCP - General Family Medicine 10/28/21 Tram Driver Relationship Specialty Start Date End Date Patricia Mcgowan MD [address] [place] [address] PCP - General Family Medicine 10/28/21 Tram Driver Relationship Specialty Start Date End Date Patricia Mcgowan MD [address] [place] [address] PCP - General Family Medicine 10/28/21 Tram Driver Relationship Specialty Start Date End Date Patricia Mcgowan MD [address] [place] [address] PCP - General Family Medicine 10/28/21 Tram Driver Relationship Specialty Start Date End Date Ron Cooley [address] [place] [address] PCP - General Family Practice 03/17/22 Tram Driver Relationship Specialty Start Date End Date Ron Cooley [address] [place] [address] PCP - General Family Practice 03/17/22 Tram Driver Relationship Specialty Start Date End Date Ron Cooley Ederma [address] [place] [address] PCP - General Family Practice 03/17/22 Tram Driver Relationship Specialty Start Date End Date Ron Cooley [address] [place] [address] PCP - General Family Practice 03/17/22 Tram Driver Relationship Specialty Start Date End Date Ron Cooley [address] [place] [address] PCP - General Family Practice 03/17/22 Tram Driver Relationship Specialty Start Date End Date Ron Cooley [address] [place] [address] PCP - General Family Practice 03/17/22 Tram Driver Relationship Specialty Start Date End Date Ron Cooley [address] [place] [address] PCP - General Family Practice 03/17/22 Tram Driver Relationship Specialty Start Date End Date Ron Cooley [address] [facility] [address] [place] [address] PCP - General Family Practice 03/17/22 Tram Driver Relationship Specialty Start Date End Date Ron Cooley [address] [facility] [address] [place] [address] PCP - General Family Practice 03/17/22 Tram Driver Relationship Specialty Start Date End Date Ron Cooley [address] [facility] [address] [place] [address] PCP - General Family Medicine 03/17/22 Tram Driver Relationship Specialty Start Date End Date Ron Cooley [address] [facility] [address] [place] [address] PCP - General Family Medicine 03/17/22 Tram Driver Relationship Specialty Start Date End Date Ron Cooley [address] [facility] [address] [place] [address] PCP - General Family Medicine 03/17/22 Erika May, REGULATORY AFFAIRS SPECIALIST.BI SOLUTIONS ARCHITECT [address] [place] [address] Specialty Secretary Receptionist Neurology 09/07/22 Tram Driver Relationship Specialty Start Date End Date Ron Cooley [address] [facility] [address] [place] [address] PCP - General Family Medicine 03/17/22 Erika May, REGULATORY AFFAIRS SPECIALIST.BI SOLUTIONS ARCHITECT [address] [place] [address] Specialty Secretary Receptionist Neurology 09/07/22 Tram Driver Relationship Specialty Start Date End Date Ron Cooley [address] [place] [address] PCP - General Family Medicine 03/17/22 Erika May, REGULATORY AFFAIRS SPECIALIST.BI SOLUTIONS ARCHITECT [address] [place] [address] Specialty Secretary Receptionist Neurology 09/07/22 Tram Driver Relationship Specialty Start Date End Date RejimaureenRon lin [address] [place] [address] PCP - General Family Medicine 03/17/22 Erika May, REGULATORY AFFAIRS SPECIALIST.BI SOLUTIONS ARCHITECT [address] [place] [address] Specialty Secretary Receptionist Neurology 09/07/22 Tatiana Rodas, REGULATORY AFFAIRS SPECIALIST.[employer] SOLUTIONS ARCHITECT [address] [place] [address] Specialty Secretary Receptionist Neurology 12/05/22 Tram Driver Relationship Specialty Start Date End Date Ron Cooley [address] [facility] [address] [place] [address] PCP - General Family Medicine 03/17/22 Erika May, REGULATORY AFFAIRS SPECIALIST.BI SOLUTIONS ARCHITECT [address] [place] [address] Specialty Secretary Receptionist Neurology 09/07/22 Tatiana Rodas, REGULATORY AFFAIRS SPECIALIST.BI SOLUTIONS ARCHITECT [address] [place] [address] Specialty Secretary Receptionist Neurology 12/05/22 Tram Driver Relationship Specialty Start Date End Date Ron Cooley [address] [place] [address] PCP - General Family Medicine 03/17/22 Erika May, REGULATORY AFFAIRS SPECIALIST.[employer] ARCHITECT [address] [place] [address] Specialty Secretary Receptionist Neurology 09/07/22 Tatiana Rodas APRN.[employer]CH[employer] [address] [place] [address] Specialty Secretary Receptionist Neurology 12/05/22 Team Status: Active Member Role Status Dates Dr. Patricia Mcgowan MD Family Provider Active Dr. Ron Cooley MD Primary Care Provider Active Team Status: Inactive Member Role Status Dates Dr. Ron Cooley MD Primary Care Provider Active Dr. Natasha Gregory MD Attending Provider, Referring Provider Active Dr. Silverio Johnson MD Other Provider Active Team Status: Inactive Member Role Status Dates Dr. Ron Cooley MD Primary Care Provider, Referr ing Provider Active Dr. Natasha Gregory MD Attending Provider Active Tram Driver Relationship Specialty Start Date End Date Ron Cooley [address] [place] [address] PCP - General Family Medicine 03/17/22 Erika May, REGULATORY AFFAIRS SPECIALIST.[employer] SOLUT[employer] ARCHITECT [address] [place] [address] Specialty Secretary Receptionist Neurology 09/07/22 Tatiana Rodas, REGULATORY AFFAIRS SPECIALIST.[employer]UT[employer] ARCHITECT [address] [place] [address] Specialty Secretary Receptionist Neurology 12/05/22 Team Status: Inactive Member Role Status Dates Dr. Ron Cooley MD Primary Care Provider Active Dr. Osman Farooq MD Emergency Provider Active Tram Driver Relationship Specialty Start Date End Date Ron Cooley [address] [facility] [address] [place] [address] PCP - General Family Medicine 03/17/22 Erika May, REGULATORY AFFAIRS SPECIALIST.[employer] SOLUT[employer] ARCHITECT [address] [place] [address] Specialty Secretary Receptionist Neurology 09/07/22 Tatiana Rodas, REGULATORY AFFAIRS SPECIALIST.[employer] SOLUT[employer] ARCHITECT [address] [place] [address] Specialty Secretary Receptionist Neurology 12/05/22 Team Status: Inactive Member Role Status Dates Dr. Ron Cooley MD Primary Care Provider Active Dr. Osman Farooq MD Attending Provider, Emergency Provider Active Team Status: Inactive Member Role Status Dates Dr. Ron Cooley MD Primary Care Pr ovider, Attending Provider, Referring Provider Active Team Status: Inactive Member Role Status Dates Dr. Ron Cooley MD Primary Care Provider, Referr ing Provider Active Christel Bae PIPE STRAIGHTENER, PIPE STRAIGHTENER-C Attending Provider Active Team Status: Inactive Member Role Status Dates Dr. Ron Cooley MD Primary Care Provider, Referr ing Provider Active Dr. Vick Santo MD Attending Provider Active Team Status: Active Member Role Status Dates Dr. Ron Cooley MD Primary Care Pr ovider, Attending Provider, Referring Provider Active Team Status: Inactive Member Role Status Dates Dr. Ron Cooley MD Primary Care Provider Active Dr. Natasha Gregory MD Attending Provider Active Team Status: Inactive Member Role Status Dates Dr. Ron Cooley MD Primary Care Provider Active Dr. Vick Santo MD Attending Provider Active Team Status: Inactive Member Role Status Dates Dr. Ron Cooley MD Primary Care Provider Active Dr. Vick Santo MD Attending Provider, Referring Provider Active Team Status: Active Member Role Status Dates Dr. Ron Cooley MD Primary Care Provider Active Dr. Vick Santo MD Referring Provider, Other Pro vider Active Dr. Sofía Luu MD Attending Provider Active Team Status: Inactive Member Role Status Dates Dr. Ron Cooley MD Primary Care Provider Active Terrie Watt MD Attending Provider, Referring Provide r Active Team Status: Active Member Role Status Dates Dr. Ron Cooley MD Primary Care Provider Active Dr. Vick Santo MD Attending Provider Active Team Status: Inactive Member Role Status Dates Dr. Ron Cooley MD Primary Care Provider Active Dr. Patricia Mcgowan MD Attending Provider, Referring P heaven Active Team Status: Inactive Member Role Status Dates Dr. Ron Cooley MD Primary Care Provider Active Dr. Jose Perez MD Attending Provider, Referrin g Provider Active Team Status: Inactive Member Role Status Dates Dr. Ron Cooley MD Primary Care Provider Active Dr. Natasha Gregory MD Attending Provider, Referring Provider Active Team Status: Inactive Member Role Status Dates Dr. Ron Coolye MD Primary Care Provider Active Dr. Natasha Gregory MD Attending Provider, Referring Provider Active Dr. Vick Santo MD Other Provider Active Team Status: Inactive Member Role Status Dates Dr. Ron Cooley MD Primary Care Provider Active Start: October 12, 2024 End: October 12, 2024 Dr. Osman Farooq MD Attending Provider Active Start: October 12, 2024 End: October 12, 2024 Dr. Osman Farooq MD Emergency Provider Active Start: October 12, 2024 End: October 12, 2024 Team Status: Inactive Member Role Status Dates Dr. Ron Cooley MD Primary Care Provider Active Start: October 28, 2024 End: October 28, 2024 Dr. Natasha Gregory MD Attending Provider Active Start: October 28, 2024 End: October 28, 2024 Dr. Natasha Gregory MD Referring Provider Active Start: October 28, 2024 End: October 28, 2024 Team Status: Inactive Member Role Status Dates Dr. Ron Cooley MD Primary Care Provider Active Start: December 02, 2024 End: December 02, 2024 Dr. Jose Perez MD Attending Provider Active Start: December 02, 2024 End: December 02, 2024 Dr. Jose Perez MD Referring Provider Active Start: December 02, 2024 End: December 02, 2024 Team Status: Inactive Member Role Status Dates Dr. Ron Cooley MD Primary Care Provider Active Start: December 04, 2024 End: December 04, 2024 Dr. Ron Cooley MD Attending Provider Active Start: December 04, 2024 End: December 04, 2024 Dr. Ron Cooley MD Referring Provider Active Start: December 04, 2024 End: December 04, 2024 Team Status: Inactive Member Role Status Dates Dr. Ron Cooley MD Primary Care Provider Active Start: December 05, 2024 End: December 05, 2024 Dr. Estuardo Mccormack DO Attending Provider Active Start: December 05, 2024 End: December 05, 2024 Dr. Estuardo Mccormack DO Emergency Provider Active Start: December 05, 2024 End: December 05, 2024 Team Status: Inactive Member Role Status Dates Dr. Ron Cooley MD Primary Care Provider Active Start: December 10, 2024 End: December 10, 2024 Dr. Ron Cooley MD Referring Provider Active Start: December 10, 2024 End: December 10, 2024 Dr. Vick Santo MD Attending Provider Active Start: December 10, 2024 End: December 10, 2024 Team Status: Inactive Member Role Status Dates Dr. Ron Cooley MD Primary Care Provider Active Start: December 10, 2024 End: December 10, 2024 Dr. Ron Cooley MD Attending Provider Active Start: December 10, 2024 End: December 10, 2024 Dr. Ron Cooley MD Referring Provider Active Start: December 10, 2024 End: December 10, 2024 Team Status: Inactive Member Role Status Dates Dr. Ron Cooley MD Primary Care Provider Active Start: January 21, 2025 End: January 21, 2025 Dr. Ron Cooley MD Attending Provider Active Start: January 21, 2025 End: January 21, 2025 Dr. Ron Cooley MD Referring Provider Active Start: January 21, 2025 End: January 21, 2025 Team Status: Active Member Role Status Dates Dr. Ron Cooley MD Primary Care Provider Active Team Status: Inactive Member Role Status Dates Dr. Ron Cooley MD Primary Care Provider Active Start: February 06, 2025 End: February 06, 2025 Dr. Ron Cooley MD Referring Provider Active Start: February 06, 2025 End: February 06, 2025 Dr. Vick Santo MD Attending Provider Active Start: February 06, 2025 End: February 06, 2025 Team Status: Inactive Member Role Status Dates Dr. Ron Cooley MD Primary Care Provider Active Start: February 14, 2025 End: February 14, 2025 Dr. Joe Soto DO Emergency Provider Active S tart: February 14, 2025 End: February 14, 2025 Team Status: Inactive Member Role Status Dates Dr. Ron Cooley MD Primary Care Provider Active Start: February 14, 2025 End: February 14, 2025 Dr. Joe Soto DO Attending Provider Active S tart: February 14, 2025 End: February 14, 2025 Dr. Joe Soto DO Emergency Provider Active S tart: February 14, 2025 End: February 14, 2025 Team Status: Inactive Member Role Status Dates Dr. Ron Cooley MD Primary Care Provider Active Start: February 20, 2025 End: February 20, 2025 Dr. Natasha Gregory MD Attending Provider Active Start: February 20, 2025 End: February 20, 2025 Team Status: Active Member Role Status Dates Dr. Ron Cooley MD Primary Care Provider Active Start: February 25, 2025 Dr. Vick Santo MD Attending Provider Active Start: February 25, 2025 Dr. Vick Santo MD Referring Provider Active Start: February 25, 2025 Team Status: Inactive Member Role Status Dates Dr. Ron Cooley MD Primary Care Provider Active Start: March 03, 2025 End: March 03, 2025 Dr. Jose Perez MD Attending Provider Active Start: March 03, 2025 End: March 03, 2025 Team Status: Inactive Member Role Status Dates Dr. Ron Cooley MD Primary Care Provider Active Start: March 20, 2025 End: March 20, 2025 Dr. Ron Cooley MD Referring Provider Active Start: March 20, 2025 End: March 20, 2025 Dr. Vick Santo MD Attending Provider Active Start: March 20, 2025 End: March 20, 2025 Team Status: Inactive Member Role Status Dates Dr. Ron Cooley MD Primary Care Provider Active Start: March 24, 2025 End: March 24, 2025 Dr. Jose Perez MD Attending Provider Active Start: March 24, 2025 End: March 24, 2025 Dr. Jose Perez MD Referring Provider Active Start: March 24, 2025 End: March 24, 2025 Team Status: Active Member Role Status Dates Dr. Ron Cooley MD Primary Care Provider Active Start: March 26, 2025 Dr. Vick Santo MD Attending Provider Active Start: March 26, 2025 Dr. Vick Santo MD Referring Provider Active Start: March 26, 2025 Team Status: Active Member Role Status Dates Dr. Ron Cooley MD Primary Care Provider Active Start: April 01, 2025 Dr. Vick Santo MD Attending Provider Active Start: April 01, 2025 Dr. Vick Santo MD Referring Provider Active Start: April 01, 2025 Team Status: Inactive Member Role Status Dates Dr. Ron Cooley MD Primary Care Provider Active Start: April 03, 2025 End: April 03, 2025 Dr. Ron Cooley MD Attending Provider Active Start: April 03, 2025 End: April 03, 2025 Dr. Ron Cooley MD Referring Provider Active Start: April 03, 2025 End: April 03, 2025 Team Status: Inactive Member Role Status Dates Dr. Ron Cooley MD Primary Care Provider Active Start: April 09, 2025 End: April 09, 2025 Surya Dumont MD Referring Provider Active Star t: April 09, 2025 End: April 09, 2025 Surya Dumont MD Emergency Provider Active Star t: April 09, 2025 End: April 09, 2025 Tram Driver Relationship Specialty Start Date End Date Ron Cooley MD [address] [facility] [address] [place] [address] PCP - General Family Medicine 04/13/25 Goals (unrecognized section and content) Goals may be documented in a n alternate sectionGoals may be documented in an alternate sectionGoals may be documented in an alternate sectionGoals may be documented in an alternate sectionGoals may be documented in an alternate sectionGoals may be documented in an alternate sectionGoals may be documented in an alternate sectionGoals may be documented in an alternate sectionGoals may be documented in an alternate sectionGoals may be documented in an alternate sectionGoals may be documented in an alternate sectionGoals may be documented in an alternate sectionGoals may be documented in an alternate sectionGoals may be documented in an alternate sectionGoals may be documented in an alternate sectionGoals may be documented in an alternate sectionGoals may be documented in an alternate sectionGoals may be documented in an alternate sectionGoals may be documented in an alternate sectionGoals may be documented in an alternate sectionGoals may be documented in an alternate sectionGoals may be documented in an alternate sectionGoals may be documented in an alternate sectionGoals may be documented in an alternate sectionGoals may be documented in an alternate sectionGoals may be documented in an alternate sectionGoals may be documented in an alternate sectionGoals may be documented in an alternate sectionGoals may be documented in an alternate section FOR RECORDS PERTAINING TO PATIENTS WHO ARE [...] BE BASED ON THE PRIMARY CLINICAL RECORDS. [employer] [facility]. provides no warranty or guarantee of the accuracy or completeness of information in this document.
== END | disposition home or self-care (01) ==
PROVIDERS: PCP Family Medicine; Referring Provider Psychiatry & Neurology Neurology; Visit Provider Psychiatry & Neurology Neurology
DX: G20.A1 Parkinson's disease without dyskinesia, without mention of fluctuations (principal); R13.10 Dysphagia, unspecified; R49.0 Dysphonia
CPT/HCPCS: 74230

== ENCOUNTER 2025-05-11 17:47 | Emergency (ER) | payer MEDICARE, OTHER, SELFPAY ==
[2025-05-11 17:49] VITALS: BP 112/99; PULSE 77; RESP 16; TEMP 36.5; O2SAT 97; BMI 36.6
--- NOTE | 2025-05-11 18:04 | EX.ED.DYSGE1 ---
HPI History of Present Illness Chief Complaint: Hypoglycemia Detail of Chief Complaint: Hypoglycemia with altered mental status Informant: patient, EMS and SNF Onset/Context/Timing Onset: Today (Last episode 3 weeks ago) Context: Sudden Onset Timing: Intermittent Quality: Altered mental status Location: Nursing facility Current Severity: Gone Maximum Severity: Moderate Worsened by: Change in activity Relieved by: Eating Associated Symptoms Associated Symptoms: None Narrative Narrative: Patient is an 79-year-old male with type 2 diabetes on insulin. Instructions did not accompany him. He is on insulin aspartate with complex instruction and insulin glargine. He does not know the dosage. He presently is alert oriented. His blood sugar is 97. Prior similar symptoms: Yes (3 weeks ago) Recent Illness/Hospitalization: No PFSH [facility] Medical History Parkinson's disease Right bundle branch block (RBBB) Obesity Type 2 diabetes mellitus Essential (primary) hypertension Cataract Back problem Arthritis HLD (hyperlipidemia) Paroxysmal atrial fibrillation Home Medications ?Medication ?Instructions ?Recorded ?Last Taken ?Type pravastatin 80 mg tablet 80 mg PO QDAY 04/06/18 Unknown History fluticasone fur. 200 mcg-umeclid 1 inh inhalation DAILY 04/12/22 Unknown History 62.5 mcg-vilant 25 mcg inhalat.powder (Trelegy Ellipta) pantoprazole 40 mg tablet,delayed 40 mg PO DAILY 04/12/22 Unknown History release finasteride 5 mg tablet 5 mg PO DAILY 04/11/23 Unknown History alfuzosin 10 mg tablet,extended 10 mg PO DAILY 04/12/23 Unknown History release 24 hr cholecalciferol (vitamin D3) 25 50 mcg PO DAILY 04/12/23 Unknown History mcg (1,000 unit) capsule insulin aspart U-100 100 unit/mL See Rx Instructions .Route .COMPLEX 04/12/23 Unknown History subcutaneous solution (Novolog U-100 Insulin aspart) metformin 750 mg tablet,extended 750 mg PO QHS 04/12/23 Unknown History release 24 hr ascorbic acid (vitamin C) 1,000 mg 1 g PO DAILY 06/27/24 Unknown History capsule insulin glargine U-300 conc 300 60 unit subcut DAILY 06/27/24 Unknown History unit/mL (3 mL) subcutaneous pen (Toujeo Max U-300 SoloStar) zinc gluconate 30 mg tablet 30 mg PO DAILY 06/27/24 Unknown History hydrocodone-acetaminophen 5-325mg 1 tab PO Q6H PRN PRN Pain 4 days 10/12/24 Unknown Rx 5mg-325mg #15 TABLETS ropinirole 2 mg tablet 2 mg PO TID #270 tabs 03/20/25 Unknown Rx carbidopa 25 mg-levodopa 100 mg 2 tab PO .QID #720 tabs 03/31/25 Unknown Rx tablet doxepin 25 mg capsule 25 mg PO QHS #90 caps 03/31/25 Unknown Rx propranolol 60 mg capsule,24 60 mg PO DAILY #90 caps 03/31/25 Unknown Rx hr,extended release Allergy/AdvReac Type Severity Reaction Status Date / Time metoclopramide (From Reglan) Allergy Severe HYPER Verified 05/11/25 17:48 Family History Father Leukemia Surgical History History of total left knee replacement (TKR) History of left tennis elbow Hx of spinal fusion History of skin cancer Social History household members: spouse housing: house Smoking Status: Former smoker alcohol intake: never substance use type: does not use ROS ROS ED Constitutional Constitutional ED: Denies chills, fever(s), subjective or sweats Cardiovascular Cardiovascular: Denies chest pain or palpitations Respiratory/Chest Respiratory/Chest: Denies cough, dyspnea or dyspnea on exertion Gastrointestinal Gastrointestinal: Denies nausea or vomiting Genitourinary Genitourinary ED: Denies dysuria or urinary frequency Musculoskeletal Musculoskeletal: Denies arthralgias or myalgias Neurologic Neurologic: Denies headache(s), paresthesias or weakness Hematologic/Lymphatic Hematologic/Lymphatic: Reports systems reviewed and no addt'l complaints, except as documented EXAM Physical Exam Const Vital Signs: 05/11/25 17:49 05/11/25 17:51 Temperature 97.7 F L Temperature Source Oral Pulse Rate 77 Respiratory Rate 16 Respiratory Effort Normal Respiratory Pattern Normal Blood Pressure 112/99 H Blood Pressure Mean 103 Pulse Ox 97 Oxygen Delivery Method Room Air Positive well nourished and well developed Constitutional Narrative: BMI is 36.7. General Appearance ED: well developed and NAD HEENT Reports moist mucous membranes HEENT Narrative: Head is atraumatic no cephalic. Ears normal. Hearing aids. Eyes PERRL and EOMs intact bilaterally Eyes Narrative: Patient wears glasses. Neck supple and no JVD Resp normal respiratory effort and clear to auscultation bilaterally Cardio regular rate, regular rhythm, S1 normal heart sound, S2 normal heart sound and no murmurs Extremity General Extremety ED: Yes edema General Extremity: edema Neuro oriented x3 and CN's II-XII intact bilaterally Sensorium / Orientation: alert Psych mental status grossly normal Skin no rashes or lesions noted, no wounds and skin turgor normal MDM MDM MDM Narrative Medical decision making narrative: Charge nurse will attempt to get his insulin doses. These will need to be adjusted to prevent this from happening again. Patient be observed and returned back to nursing facility. History & Record Review Additional record(s) reviewed:: Prior ED visit (Seen April 09 for head injury. His workup was unremarkable. He was seen January of this year by Dr. Martin for head injury as well.) Lab Data Labs: Laboratory Results - last 24 hr 05/11/25 17:56 POC Glucose 97 Treatment and Re-Evaluation :: When arrived I was informed that patient did not eat lunch and probably the cause of his hypoglycemia. She does not want his medication doses adjusted. Therefore was discharged to home Discharge Plan Triage Chief Complaint: Hypoglycemia ED Provider: Dano Minor Dx/Rx/DC Orders Clinical Impression: Acute alteration in mental status, Essential (primary) hypertension, Dementia, HLD (hyperlipidemia), Controlled type 2 diabetes mellitus with hypoglycemia, with long-term current use of insulin, Adult BMI 36.0-36.9 kg/sq m Instructions: ED Hypoglycemia Oral Diabetic Med Prescriptions: No Action pravastatin 80 mg tablet 80 mg PO QDAY metformin 750 mg tablet extended release 24 hr 750 mg PO QHS insulin aspart U-100 [Novolog U-100 Insulin aspart] 100 unit/mL solution See Rx Instructions .ROUTE .COMPLEX Patient Comments: Sliding scale Rx Instructions: Sliding scale Trelegy Ellipta 200-62.5-25 mcg blister with device 1 inh inhalation DAILY pantoprazole 40 mg tablet,delayed release (DR/EC) 40 mg PO DAILY cholecalciferol (vitamin D3) 25 mcg (1,000 unit) capsule 50 mcg PO DAILY alfuzosin 10 mg tablet extended release 24 hr 10 mg PO DAILY Rx Instructions: administer after the same meal each day insulin glargine U-300 conc [Toujeo Max U-300 SoloStar] 300 unit/mL (3 mL) insulin pen 60 unit subcut DAILY finasteride 5 mg tablet 5 mg PO DAILY zinc gluconate 30 mg tablet 30 mg PO DAILY ascorbic acid (vitamin C) 1,000 mg capsule 1 g PO DAILY ropinirole 2 mg tablet 2 mg PO TID Qty: 270 1RF carbidopa-levodopa 25-100 mg tablet 2 tab PO .QID Qty: 720 0RF doxepin 25 mg capsule 25 mg PO QHS Qty: 90 1RF propranolol 60 mg capsule,extended release 24 hr 60 mg PO DAILY Qty: 90 1RF hydrocodone-acetaminophen 5-325 mg tablet 1 tab PO Q6H PRN PRN (Reason: Pain) 4 Days Qty: 15 0RF Primary Care Provider: Ja Cooley Referrals: Ja Coolye MD [Primary Care Provider] - As Needed Print Language: Syriac Disposition Disposition: Home, Self Care
--- OUTSIDE RECORDS SUMMARY | 2025-05-11 18:12 | XMS RPT_ITS | CCD ---
Author Organization [facility] Inform ion Partnership [facility] Care Team Providers Care Quality Assurance Tech Name Role Phone Emigdio Crump (Historic) Primary Care Prov ider Patricia Mcgowan Primary Care Provider Unavailable Primary Care Provider Daniel Mcgowan MD, Patricia Ramon Primary Care Provider BARB MORTON Attending Unavailab le JOLLIFF, PATRICIA RAMON Primary Care Unavailable SELENEBARB TUBBS Referring Unavailab le SELENE, BARB MAS Attending Unavailab le JOLLIFF, PATRICIA TRISTEN Primary Care Unavailable SELENEBARB Admitting Unavailab le JOLLIFF, PATRICIA [facility] Primary Care Unavailable SELENE, BARB MAS Attending Unavailab le SELENEBARB Referring Unavailab le JOLLIFFPATRICIA Referring Unavailable SELENE, BARB MAS Admitting Unavailab le SELENE, BARB MAS Attending Unavailab le SELENEBARB Referring Unavailab le JOLLIFF, PATRICIA TRISTEN Primary Care Unavailable SELENEBARB Admitting Unavailab SARAH Peace Attending Unavailable SELENEBARB Admitting Unavailab HARPAL Brody Attending Unavailable JOLLRADHA, PATRICIA [facility] Primary Care Unavailable SELENE, BARB MAS Referring Unavailab le SELENE, BARB MAS Attending Unavailab le JOLLIFF, PATRICIA TRISTEN Primary Care Unavailable SELENEBARB Referring Unavailab le JOLLIFF, PATRICIA [facility] Primary Care Unavailable SELENE, BARB MAS Attending Unavailab le SELENE, BARB MAS Referring Unavailab le JOLLIFF, PATRICIA [facility] Primary Care Unavailable JASPREET QURESHI Attending Unavailable Ron Cooley [place] Primary Care Provider Dr. Patricia Mcgowan Referring Provider Dr. Vladimir Sears Attending Provider Dr. Ron Cooley Primary Care Provider [phone] Dr. Silverio Amin Attending Provider Ron Cooley [place] Primary Care Provider [phone] Ron Cooley erma Primary Care Provider Ron Cooley [place] Primary Care Provider [phone] Lalo [employer] TEACHER[employer] CLUB MANAGER, Erika K Unavailable Ron Cooley [place] Primary Care Provider [phone] Lalo ELECTRONICS TEACHER.FITNESS CLUB MANAGER, Erika K Unavailable ELECTRONICS TEACHER.FITNESS CLUB MANAGER, Tatiana Unavailable [phone] PATRICIA MCGOWAN Primary Care Unavailable LIZBETH, JAYLYN Attending Unavailable LENI RUIZ Attending Unavailable LIZBETH, JAYLYN Referring Unavailable [facility] Primary Care Unavailabl e LIZBETH, JAYLYN Referring Unavailable ALEIDA RAMIREZ Attending Unavailable [facility], [facility] Primary Care Unavailabl e LIZBETH, JAYLYN Attending Unavailable [facility] Primary Care Unavailabl e LIZBETH, JAYLYN Attending Unavailable LIZBETH, JAYLYN Referring Unavailable [facility] Primary Care Unavailabl e [facility], [facility] Primary Care Unavailabl e MAINE MEDEL Attending Unavailable LIZBETH, JAYLYN Referring Unavailable [facility], [facility] Primary Care Unavailabl e KORI RYDER Attending Unavailable LIZBETH, JAYLYN Referring Unavailable [facility], [facility] Primary Care Unavailabl e KORI RYDER Attending Unavailable LIZBETH, JAYLYN Referring Unavailable LIZBETH, JAYLYN Referring Unavailable [facility], [facility] Primary Care Unavailabl e BEBB KORI Attending Unavailable BEKORI WEEKS Attending Unavailable LIZBETH, JAYLYN Referring Unavailable [facility], [facility] Primary Care Unavailabl e [facility], [facility] Primary Care Unavailabl e LIZBETH, JAYLYN Referring Unavailable [facility], [facility] Primary Care JAYLYN Gonsalves Referring Unavailable Dr. [...] Dr. Jose Perez MD, V Referring Provider Dr. Ron Cooley MD Attending Provider [phone] Dr. Ron Cooley MD Referring Provider Dr. Estuardo Mccormack DO Attending Provider Easton MONTEJO, Dr. Marte Emergency Provider Chet GARZA, Dr. Hickman Attending Provider [phone] Lenora GARZA, Dr. Ron Deleon Primary Care Provider [phone] Dr. Joe Soto DO Emergency Provider Charles MONTEJO, Dr. Diaz Attending Provider Lenora GARZA, Dr. Ron Deleon Primary Care Provider [phone] Colt GARZA, Dr. Kaur Attending Provider Chet GARZA, Dr. Hickman Referring Provider [phone] Chet GARZA, Dr. Hickman Referring Provider NATASHA GREGORY MD Primary Care Unavailable RON COOLEY MD Attending Unavailable NATASHA GREGORY MD Primary Care Unavailable LENORA GARZA, RON Attending Unavailable Dr. Ron Cooley MD Primary Care Provider [phone] Dr. Ron Cooley MD Referring Provider [phone] Lenora GARZA, Dr. Ron Deleon Attending Provider Dr. Jose Perez MD, V Attending Provider Dr. Jose Perez MD, V Referring Provider Dr. Vick Santo MD Referring Provider Surya Dumont MD Referring Provider Surya Dumont MD Emergency Provider Ron Cooley MD Primary Care Provider RON COOLEY Primary Care Unavailable Chetan POWELL Attending Unavailable Natasha Gregory Referring Unavailable Natasha Gregory Attending Unavailable Ron Cooley Primary Care Unavailable Ron Cooley Attending Unavailable Ron Cooley Primary Care Unavailable Ron Cooley Referring Unavailable Natasha Gregory Attending Unavailable Ron Cooley Primary Care Unavailable Vick Santo Referring Unavailable Vick Santo Attending Unavailable Ron Cooley Primary Care Unavailable Vick Santo Referring Unavailable Vick Santo Attending Unavailable SchRon marcos E Primary Care Unavailable SchRon marcos Primary Care Unavailable Osman Farooq Attending Unavailable SchRon marcos Primary Care Unavailable Joe Soto Attending Unavailable SchRon marcos E Primary Care Unavailable SchRon marcos E Referring Unavailable SchRon marcos Attending Unavailable Natasha Gregory Referring Unavailable Natasha Gregory Attending Unavailable SchRon marcos Primary Care Unavailable SchRon marcos Primary Care Unavailable Sibilia, Jose V Referring Unavailable SibiliaJose V Attending Unavailable Ron Cooley Referring Unavailable SchRon marcos Primary Care Unavailable Ron Cooley Attending Unavailable Ron Cooley Primary Care Unavailable SibiliaJose V Attending Unavailable Ron Cooley E Primary Care Unavailable Sibilia, Jose V Referring Unavailable Sibilia Jose Xenia Attending Unavailable Ron Cooley Attending Unavailable Ron Cooley E Primary Care Unavailable Ron Cooley Referring Unavailable Vick Santo Attending Unavailable Ron Cooley Referring Unavailable SchRon marcos E Primary Care Unavailable Ron Cooley Referring Unavailable Vick Santo Attending Unavailable Ron Cooley E Primary Care Unavailable SchRon marcos Primary Care Unavailable Vladimir Sears Attending Unavailable Ron Cooley Referring Unavailable Vick Santo Attending Unavailable Ron Cooley E Primary Care Unavailable Ron Cooley E Primary Care Unavailable Imer Gee Referring Unavailable Imer Gee Attending Unavailable Vick Santo Attending Unavailable Vick Santo Referring Unavailable SchRon marcos Primary Care Unavailable Ron Cooley Referring Unavailable Vick Santo Attending Unavailable Ron Cooley E Primary Care Unavailable Vick Santo Attending Unavailable Ron Cooley E Primary Care Unavailable SchRon marcos Referring Unavailable SchRon marcos Primary Care Unavailable SchRon marcos Referring Unavailable SchRon marcos Attending Unavailable Estuardo Mccormack Attending Unavailable SchRon marcos E Primary Care Unavailable SchRon marcos E Primary Care Unavailable Surya Dumont Referring Unavailable Surya Dumont Attending Unavailable Whitley Kimball Referring Unavailable Whitley Kimball Attending Unavailable Ron Cooley Primary Care Unavailable Allergies Allergy Classification Reported Allergen(s) Allergy Type Date of Onset Reaction(s) Facility DOPamine Antagonists (3 sources) Metoclopramide Drug Allergy 03-01-20 18 Anxiety [facility] Unclassified (3 sources) Seasonal allergy Propensity to adverse reactions to substance 05-05-20 [facility] (12 sources) Metoclopramide; Translations: [METOCLOPRAMIDE HCL] Drug Allergy 10-05-20 [facility] (20 sources) Metoclopramide; Translations: [METOCLOPRAMIDE] Drug Allergy 08-25-20 Mental Status Change, Other [facility] Work Phone: Comment on above: anxiety (1 source) Metoclopramide Drug Allergy 03-20-20 [facility] Repository Medications Current Medications Medication Drug Class(es) [...] HYDROcodone-acetaminophen (N ORCO) 5-325 MG per tablet [id number] 200 actuat albuterol 0.09 mg/actuat metered dose [...] capsule Active 25 mg PO AT BEDTIME March 31, 2025 9:06am Start: 06-17-2024 End: [...] take 1 puff(s) by inhalation once daily rsssequoifj-vsyxctnil-isylkwgk (Trelegy Ellipta) 100-62.5-25 mcg DsDv Inhale 1 puff daily . 0 Active Fluticasone-Umec lidin-Vilanter (20 sources) Sta rt: Ezrzikayire-Dtidotcnh-Zpwwzd er (Trelegy Ellipta) 200-62.5-25 mcg blister with device Active 1 INH INHALATION DAILY April 12, 2022 9:33am Start: 04-12-2022 Fluticasone-Um eclidin-Vilanter (Trelegy Ellipta) 200-62.5-25 mcg blister with device Active 1 NMA INHALATION DAILY April 12, 2022 12:00am Start: 04-12-2022 Fluticasone-Um eclidin-Vilanter (Trelegy Ellipta) 200-62.5-25 mcg blister with device Active 1 INH INHALATION DAILY April 11, 2022 11:00pm Start: 04-12-2022 Fluticasone-Um eclidin-Vilanter (Trelegy Ellipta) 200-62.5-25 [...] solution (1 source) beta-Adrenergic Aravind Start: 05-19-20 labetalol (NORMODYNE;TRANDAT E) injection 5 mg 10 ml lidocaine hydrochloride 10 mg/ml injection (1 source) Antiarrhythmic, Amide Local Anesthetic Start: 05-19-20 End: 05-19-20 21 lidocaine PF 1 % injection 1 mL 1 ml meperidine hydrochloride 25 mg/ml cartridge (1 source) Opioid Agonist Start: 05-19-20 meperidine (DEMEROL) injection 12.5 mg 24 hr [...] 5 mg PO THREE TIMES A DAY September 02, 2024 12:00am December 11, 2024 [...] Comment on above: Take 1 capsule by [facility] once daily. EPINEPHrine 0.01 mg/ml / lidocaine [...] famotidine (PEPCID) tablet 2 0 mg fluticasone baxfpxq-akqloggtefjb-cnyrhufvnz (TRELEGY ELLIPTA) 200-62.5-25 mcg powder inhaler (12 sources) take 1 puff(s) by inhalation once daily fluticasone famcgrx-phgbidbbzzut-cxwpjlfbui (TRELEGY ELLIPTA) 200-62.5-25 mcg powder inhaler Inhale [...] sources) Anticholinergic Start: 04-06-2018 End: 04-11-2019 Ipratropium [place] 0.03 % spray,non-aerosol Discontinued 2 NMA INTRANASAL 2 to 3 times per day as needed April 06, 2018 12:00am April 11, 2019 11:44am Start: 04-06-2018 End: 04-11-2019 Ipratropium [place] Disconti nued 2 SPRAY INTRANASAL 2 to [...] tablet Discontinued 15 mg PO AT BEDTIME August 24, 2023 9:09am September 06, 2023 [...] 24 hr Discontinued 60 mg PO DAILY 90 December 11, 2024 3:59pm March 31, 2025 [...] sources) Obesity; Translations: [Obesity, unspecified] 04-11-2022 Chronic Other upper respiratory disease (1 source) Dysphonia; Translations: [Dysphonia] Onset: 05-09-2025 Episodic Parkinson`s disease (20 sources) Parkinson's disease; Translations: [Parkinson's disease] Onset: 03-18-2022 Chronic Parkinson`s disease (15 sources) Parkinson`s disease; Translations: [Parkinson's disease without dyskinesia, with fluctuations] Onset: 05-07-2025 Residual codes; unclassified (20 sources) Obstructive sleep [...] [Other specified conditions influencing health status] Onset: 1 Episodic Fracture of upper limb (5 sources) [...] Test Name Value Interpretation Reference Range Facility Modified Barium Swallow Stud yon 05-09-2025 Modified Barium Swallow Study [facility] Speech Pathology [address] [place] [address] Modified Barium Swallow Study MR#: [id number] Acct: [id number] Name: KEVIN GRIFFITH Rep #: [id number] : 1945 79 From: Heather Titus M.A., [facility]CH[facility]NEY REPAIRER Modified Barium Swallow Patient Information Study Date: 05/09/25 Study Time: 13:05 Direct Billable Minutes: 120 Total Minutes procedure reportin Diagnosis: Dysphagia R13.10 Referring Physician: Vick Santo Reason for Referral: The patient presents for repeat MBSS recommended by his OP CHIMNEY REPAIRER. Patient and report coughing w/ food and drink at every meal. No choking or Heimlich required in the past, but he has frequent coughing episodes and his is fearful of choking w/ extent of coughing. She reports he has most difficulty swallowing dry meats. He reports most difficulty w/ liquids. He has had swallowing difficulty for 3.5 years, but it appears to be getting much worse per report. 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 BSE 02/26/2025 revealed dysphagia and recommended the following diet textures and safe swallowing strategies ??? Regular (Level 7), Liquids: Thin (Level 0), Safey Precautions/Swallowing Recommendations (Check all that Apply): Upright Position at Least 30 Minutes After Meals, Small Sips Bites when Eating, No Straw, Multiple Swallows, Alternate Liquids Solids and Other (Specify Below), Other: Effortful swallows with liquids.??? BSE also recommended a repeat MBSS for further evaluation of aspiration risk and to determine appropriate dysphagia interventions. 09/20/24 MBSS revealed mild oropharyngeal dysphagia and recommended the following diet textures and safe swallowing strategies: ???Regular Textures and Thin Liquids (w/ effortful swallow)???Compensatory Strategies: Small Bites, Small Sips, No Straws, Slow Rate, Multiple Swallows, Alternate bites/solids and sips/liquids, Sitting upright, Remain sitting upright for 30 minutes after PO intake and Assist with verbal cues to use recommended strategies.??? Current Diet Ordered: Regular textures / Thin liquids Dentition: Natural Teeth and Missing Teeth Mental Status: Impaired (Dementia) Respiratory Status: Oxygenating on Room Air Penetration-Aspiration [...] does not enter airway Thin Liquid via teaspoon Trial 2: Result: 1= does not enter airway Thin Liquid via small single sip: cup: Result: 2= enter airway/above vocal folds/ejected [place] Thick Liquid via large single sip: cup: Result: 7= enters airways/below vocal folds/not ejected despite effort Pudding via teaspoon: Result: 1= does not enter airway Comment: Esophageal screen - Retention of pudding in the middle esophagus. Thin Liquid via single sip: straw: Result: 7= enters airways/below vocal folds/not ejected despite effort Comment: Esophageal screen - Complete clearance. 1/2 Cookie coated in barium pudding: Result: 1= does not enter airway Comment: Esophageal screen - Retention of cookie in the middle and lower esophagus. Thin Liquid via sequential sips: cup: Result: 7= enters airways/below vocal folds/not ejected despite effort Comment: Esophageal screen - Some clearance (still moderate retention) w/ liquid wash. Thin Liquid via large single sip: cup Chin tuck: Result: 2= enter airway/above vocal folds/ejected Thin Liquid via small single sip: cup Chin tuck: Result: 2= enter airway/above vocal folds/ejected Thin Liquid via small single sip: cup Chin tuck Trial 2: Result: 2= enter airway/above vocal folds/ejected Thin Liquid via large single sip: cup Chin tuck Trial 2: Result: 2= enter airway/above vocal folds/ejected Thin Liquid via large single sip: cup Effortful swallow: Result: 1= does not enter airway Thin Liquid via small single (more content not included)... Normal [facility] Microalb:Creat Ratio,Random URon 05-08-2025 MALB:CREAT 8.8 mg/g CRE Normal [facility] Comment on above: Result Comment: AMENDED REPORT 05/08/25 0851 MALB:CREAT previously reported as: 87.7 mg/g CRE Performed By: #### L 501.4100, L501.4405, L500.2500, L501.9985 #### [facility] Laboratory [address] [place], [address] CT MAXILLOFACIAL WO IV CONTR Princess 04-13-2025 CT MAXILLOFACIAL WO IV CONTRAST Patient Name: KEVIN GRIFFITH : 1945 Exam Date/Time: 04/13/2025 21:07 Procedure: CT MAXILLOFACIAL [...] lac to forehead above left eye Normal [facility] CT Maxillofacial region WO c [facility] 04-13-2025 1. Bilateral nasal bone fractures. 2. Left frontal scalp laceration with contusion. Report Dictated on Electronically Signed By: Maine Briones MD Electronically Signed Date/Time: 04/13/2025 9:21 PM EDT [facility] 1945 [id number] Exam Date/Time: 04/13/2025 21:07 Procedure: CT MAXILLOFACIAL [...] airway is patent. The epiglottis is normal. [facility] Maine Briones MD - 04/13/2025 Patient Name: KEVIN GRIFFITH : 1945 [facility]#: [id number] Exam Date/Time: 04/13/2025 21:07 Procedure: CT MAXILLOFACIAL [...] Electronically Signed Date/Time: 04/13/2025 9:21 PM EDT [facility] Radiology Study observation (narrative) [facility] CT Maxillofacial region WO c ontrastOrdered By: Maine Briones on 04-13-2025 [facility] Work Phone: ED Nursing Noteon 04-13-2025 ED Nursing Note Pt presents to ED vi a EMS from restaurant for c/o left frontal head lac after losing footing and falling onto face on the ground. Pt has hx of parkinson's. Abrasion noted to forehead, small lac noted to bridge of nose as well as a large lac to forehead above left eye Normal [facility] ED Provider Noteon ED Provider Note EMERGENCY [...] DEPARTMENT COURSE and DIFFERENTIAL DIAGNOSIS/MDM: Vitals: Vitals: 04/13/25 2040 BP: 132/58 Pulse: 77 Resp: 18 Temp: [...] records from: PDMP demonstrating 1 prescription, for [place] CT demonstrating bilateral nasal bone fractures. The [...] initial encounter Medications lidocaine-EPINEPHrine (Xylocaine W/EPI) 1 %-[id number] injection 10 mL (has no administration in [...] Consent obtained: Verbal Consent given by: Patient [place] protocol: Imaging studies available: yes Patient identi (more content not included)... Normal [facility] No Panel Informationon 04-13 Chetan Powell MD 04/13/2025 10:22 PM Laceration Repair Performed by: Chetan Powell MD Authorized by: Chetan Powell MD Consent: Consent obtained: Verbal Consent given by: Patient [place] protocol: Imaging studies available: yes Patient identity [...] Dressing: Open (no dressing) Procedure completion: [facility] Brain/Head without Contrasto n 04-09-2025 Brain/Head without Contrast [facility] Imaging Services [address] [place] [id number] Brain/Head without Contrast MR#: [id number] Acct: [id number] Name: KEVIN GRIFFITH Rep #: [id number] : 1945 M 79 From: Donnell Corey MD PCP: Dr. Ron Cooley MD Status: [facility] Study: Brain/Head without Contrast Date of Exam: 03/21 12/14 Exam# [id number] Ordering Dr: Surya Dumont MD EXAM: CT [...] change from the prior exam. Reading Location: [facility] CC: Dr. Surya Dumont MD; Dr. Ron Cooley MD Ell Tutor: Signed Normal [facility] Emergency Department Summary on 04-09-2025 Emergency Department Summary [facility] Medical Records Department [address] [place] [id number] Emergency Department Summary 04/09/25 MR#: [id number] Acct: [id number] Name: KEVIN GRIFFITH Rep #: [id number] : 1945 79 From: Surya Dumont MD [...] take blood thinners. Tetanus Immunization: <5 years [facility] Medical History Parkinson's disease Right bundle branch [...] Medical decis (more content not included)... Normal [facility] Spine Cervical without Contr ason 04-09-2025 Spine Cervical without Contras [facility] Imaging Services [address] [place] [address] Spine Cervical without Contras MR#: [id number] Acct: [id number] Name: KEVIN GRIFFITH Rep #: [id number] : 1945 M 79 From: Donnell Corey MD PCP: Dr. Ron Cooley MD Status: REG ER Study: Spine Cervical without Contras Date of Exam: 0 04/09/25 Exam# [id number] Ordering Dr: Surya Dumont MD EXAM: CT [...] the cervical spine as described. Reading Location: [facility] CC: Dr. Surya Dumont MD; Dr. Ron Cooley MD Ell Tutor: Signed Normal [facility] Anion gap in Serum or Plasma Ordered By: Ron Cooley on 04-03-2025 Anion gap [Moles/Vol] 11 mmol/L 04-03 [facility] BUN/creatinine ratioOrdered By: Ron Cooley on 04-03-2025 Urea nitrogen/Creatinine [Mass ratio] 20.8 mg/mg High 10-20 [facility] Bilirubin, totalOrdered By: Ron Cooley on 04-03-2025 Bilirubin [Mass/Vol] 0.52 mg/dL 0.00-1.30 [facility] Calculated very low density lipoprotein (VLDL) cholesterol measurementOrdered By: Ron Cooley on 04-03-2025 Calculated very low density lipoprotein (VLDL) cholesterol measurement 27 mg/dL -40 [facility] Carbon dioxide, total [Moles /volume] in Central venous bloodOrdered By: Ron Cooley on 04-03-2025 CO2 [Moles/Vol] 26.4 mmol/L 21.0-32.0 [facility] Chloride assayOrdered By: Rimma Cooley on 04-03-2025 Chloride [Moles/Vol] 104 mmol/L 98-108 [facility] Comprehensive Metabolic Prof ilon 04-03-2025 Albumin [Mass/Vol] 3.9 g/dL Normal 3.4-4.8 [facility] Comment on above: Order Comment: Order Date: 03/13/25Order Info: [id number] - CMPOrder Info: [id number] - LIPID Performed By: #### L 501.4100, L501.4405, L500.2500, L501.9985 #### [facility] [address] [place], [address] Albumin/Globulin [Mass ratio] 1.4 {ratio} Normal 0.9-2.4 [facility] Comment on above: Order Comment: Order Date: 03/13/25Order Info: [id number] - CMPOrder Info: [id number] - LIPID Performed By: #### L 501.4100, L501.4405, L500.2500, L501.9985 #### [facility] [address] [place], [address] ALK PHOS 79 U/L Normal 40-129 [facility] Comment on above: Order Comment: Order Date: 03/13/25Order Info: [id number] - CMPOrder Info: [id number] - LIPID Performed By: #### L 501.4100, L501.4405, L500.2500, L501.9985 #### [facility] [address] [place], [address] ALT [Catalytic activity/Vol] 5 U/L Normal <=46 [facility] Comment on above: Order Comment: Order Date: 03/13/25Order Info: [id number] - CMPOrder Info: [id number] - LIPID Performed By: #### L 501.4100, L501.4405, L500.2500, L501.9985 #### [facility] [address] [place], [address] AST [Catalytic activity/Vol] 17 U/L Normal <=37 [facility] Comment on above: Order Comment: Order Date: 03/13/25Order Info: [id number] - CMPOrder Info: [id number] - LIPID Performed By: #### L 501.4100, L501.4405, L500.2500, L501.9985 #### [facility] [address] [place], [address] Bilirubin [Mass/Vol] 0.52 mg/dL Normal 0.00-1.30 [facility] Comment on above: Order Comment: Order Date: 03/13/25Order Info: [id number] - CMPOrder Info: [id number] - LIPID Performed By: #### L 501.4100, L501.4405, L500.2500, L501.9985 #### [facility] [address] [place], [address] BUN/CRE 20.8 RATIO High 10-20 [facility] Comment on above: Order Comment: Order Date: 03/13/25Order Info: [id number] CMPOrder Info: [id number] - LIPID Performed By: #### L 501.4100, L501.4405, L500.2500, L501.9985 #### [facility] [address] [place], [address] Calcium [Mass/Vol] 9.2 mg/dL Normal 7.6-11.0 [facility] Comment on above: Order Comment: Order Date: 03/13/25Order Info: [id number] - CMPOrder Info: [id number] - LIPID Performed By: #### L 501.4100, L501.4405, L500.2500, L501.9985 #### [facility] [address] [place], [address] Chloride [Moles/Vol] 104 mmol/L Normal 98-108 [facility] [facility] Comment on above: Order Comment: Order Date: 03/13/25Order Info: [id number] - CMPOrder Info: [id number] - LIPID Performed By: #### L 501.4100, L501.4405, L500.2500, L501.9985 #### [facility] [address] [place], [address] CO2 [Moles/Vol] 26.4 mmol/L Normal 21.0-32.0 [facility] Comment on above: Order Comment: Order Date: 03/13/25Order Info: [id number] - CMPOrder Info: [id number] - LIPID Performed By: #### L 501.4100, L501.4405, L500.2500, L501.9985 #### [facility] [address] [place], [address] Creatinine [Mass/Vol] 0.78 mg/dL Normal 0.70-1.20 [facility] Comment on above: Order Comment: Order Date: 03/13/25Order Info: [id number] - CMPOrder Info: [id number] - LIPID Performed By: #### L 501.4100, L501.4405, L500.2500, L501.9985 #### [facility] [address] [place], [address] GAP 11 Normal 5-15 [facility] Comment on above: Order Comment: Order Date: 03/13/25Order Info: [id number]- - CMPOrder Info: [id number] - LIPID Performed By: #### L 501.4100, L501.4405, L500.2500, L501.9985 #### [facility] [address] [place], [address] GFR/1.73 sq M.predicted among non-blacks MDRD (S/P/Bld) [Vol rate/Area] 90 mL/min/{1.73_m2} Normal >60 [facility] Comment on above: Order Comment: Order Date: 03/13/25Order Info: [id number]- - CMPOrder Info: [id number] - LIPID Result Comment: mL/m in/1.73m2 CKD-EPI Creatinine Equation (2020) Performed By: #### L 501.4100, L501.4405, L500.2500, L501.9985 #### [facility] [address] [place], [address] Globulin (S) [Mass/Vol] 2.8 g/dL Normal 2.2-4.2 [facility] Comment on above: Order Comment: Order Date: 03/13/25Order Info: [id number] - CMPOrder Info: [id number] - LIPID Performed By: #### L 501.4100, L501.4405, L500.2500, L501.9985 #### [facility] [address] [place], [address] Glucose [Mass/Vol] 109 mg/dL High 70-99 [facility] Comment on above: Order Comment: Order Date: 03/13/25Order Info: [id number] - CMPOrder Info: [id number] - LIPID Performed By: #### L 501.4100, L501.4405, L500.2500, L501.9985 #### [facility] [address] [place], [address] Potassium [Moles/Vol] 3.9 mmol/L Normal 3.3-5.1 [facility] Comment on above: Order Comment: Order Date: 03/13/25Order Info: [id number] - CMPOrder Info: [id number] - LIPID Performed By: #### L 501.4100, L501.4405, L500.2500, L501.9985 #### [facility] [address] [place], [address] Sodium [Moles/Vol] 142 mmol/L Normal 133-145 [facility] Comment on above: Order Comment: Order Date: 03/13/25Order Info: [id number] - CMPOrder Info: [id number] - LIPID Performed By: #### L 501.4100, L501.4405, L500.2500, L501.9985 #### [facility] [address] [place], [place], [address] T PROT 6.6 g/dL Normal 5.9-8.4 [facility] Comment on above: Order Comment: Order Date: 03/13/25Order Info: [id number] - CMPOrder Info: [id number] - LIPID Performed By: #### L 501.4100, L501.4405, L500.2500, L501.9985 #### [facility] [address] [place], [address] Urea nitrogen [Mass/Vol] 16 mg/dL Normal 4-19 [facility] Comment on above: Order Comment: Order Date: 03/13/25Order Info: [id number] - CMPOrder Info: [id number] - LIPID Performed By: #### L 501.4100, L501.4405, L500.2500, L501.9985 #### [facility] [address] [place], [address] Glomerular filtration rate ( GFR) estimation/1.73 sq m using serum, plasma, or whole bOrdered By: Ron Cooley on 04-03-2025 GFR/1.73 sq M.predicted among non-blacks MDRD (S/P/Bld) [Vol rate/Area] 90 mL/min/{1.73_m2} >60 [facility] Comment on above: mL/min/1.73m2 CKD-EP I Creatinine Equation (2020) LDL calc ser/plasOrdered By: Ron Cooley on 04-03-2025 Cholesterol in LDL [Mass/Vol] 47 mg/dL [facility] Comment on above: Muplfvhxhp=376-322 m g/dL & Higher Gzhz=228 mg/dL or greater Laboratory - Chemistry and C hemistry - challengeOrdered By: Ron Cooley on 04-03-2025 AST [Catalytic activity/Vol] 17 U/L <38 [facility] Lipid Profileon 04-03-2025 CHOL:HDL 2.63 Normal [facility] Comment on above: Order Comment: Order Date: 03/13/25Order Info: [id number] - CMPOrder Info: [id number] - LIPID Performed By: #### L 501.4100, L501.4405, L500.2500, L501.9985 #### [facility] [address] [place], [address] Cholesterol [Mass/Vol] 120 mg/dL Normal <=200 [facility] Comment on above: Order Comment: Order Date: 03/13/25Order Info: [id number] - CMPOrder Info: [id number] - LIPID Result Comment: Chol esterol level, Desirable <200 mg/dL Borderline high cholesterol 200-239 mg/dL High cholesterol >=240 mg/dL Recommendations of the NCEP Adult Treatment Panel for the following risk-cutoff thresholds for the [place] population. Performed By: #### L 501.4100, L501.4405, L500.2500, L501.9985 #### [facility] [address] [place], [address] Cholesterol in HDL [Mass/Vol] 46 mg/dL Normal [facility] Comment on above: Order Comment: Order Date: 03/13/25Order Info: [id number] - CMPOrder Info: [id number] - LIPID Result Comment: Makayla onal Cholesterol Education Program (NCEP) guidelines: <40 mg/dL: Low HDL-cholesterol (major risk factor for CHD) >= 60 mg/dL: High HDL-cholesterol (negative risk factor for CHD) HDL-cholesterol is affected by a number of factors, e.g. smoking, exercise, hormones, sex and age. Performed By: #### L 501.4100, L501.4405, L500.2500, L501.9985 #### [facility] [address] [place], [address] Cholesterol in LDL [Mass/Vol] 47 mg/dL Normal [facility] Comment on above: Order Comment: Order Date: 03/13/25Order Info: 07 - CMPOrder Info: [id number] - LIPID Result Comment: Bord esjaet=373-870 mg/dL Higher Fjwh=365 mg/dL or greater Performed By: #### L 501.4100, L501.4405, L500.2500, L501.9985 #### [facility] [address] [place], [address] Cholesterol in VLDL [Mass/Vol] 27 mg/dL Normal 5-40 [facility] Comment on above: Order Comment: Order Date: 03/13/25Order Info: [id number] - CMPOrder Info: [id number] - LIPID Performed By: #### L 501.4100, L501.4405, L500.2500, L501.9985 #### [facility] [address] [place], [address] Triglyceride [Mass/Vol] 135 mg/dL Normal [facility] Comment on above: Order Comment: Order Date: 03/13/25Order Info: [id number] - CMPOrder Info: [id number] - LIPID Result Comment: The drugs N-Acetylcysteine and Metamizole may falsely depress this assay. Normal range: <150 mg/dL Borderline High: 150-199 mg/dL High: 200-499 mg/dL Very High: >500 mg/dL Performed By: #### L 501.4100, L501.4405, L500.2500, L501.9985 #### [facility] [address] [place], [address] Potassium measurement (mass/ volume)Ordered By: Ron Cooley on 04-03-2025 Potassium (Unsp spec) [Mass/Vol] 3.9 mmol/L 3.3-5.1 [facility] Screening total cholesterol/ high density lipoprotein (HDL) cholesterol ratioOrdered By: Ron Cooley on 04-03-2025 Cholesterol.total/Cholest gris in HDL [Mass ratio] 2.63 {ratio} [facility] Serum creatinine measurement (mass/volume)Ordered By: Ron Cooley on 04-03-2025 Creatinine [Mass/Vol] 0.78 mg/dL 0.70-1.20 [facility] Serum globulin measurementOr dered By: Ron Cooley on 04-03-2025 Globulin (S) [Mass/Vol] 2.8 g/dL 2.2-4.2 [facility] Serum glucose measurement (m ass/volume)Ordered By: Ron Cooley on 04-03-2025 Glucose [Mass/Vol] 109 mg/dL High 70-99 [facility] Serum or plasma alanine max otransferase (ALT) measurementOrdered By: Ron Cooley on 04-03-2025 ALT [Catalytic activity/Vol] 5 U/L <47 [facility] Serum or plasma albumin walt urement (mass/volume)Ordered By: Ron Cooley on 04-03-2025 Albumin [Mass/Vol] 3.9 g/dL 3.4-4.8 [facility] Serum or plasma albumin/glob ulin mass ratioOrdered By: Ron Cooley on 04-03-2025 Albumin/Globulin [Mass ratio] 1.4 {ratio} 0.9-2.4 [facility] Serum or plasma alkaline sarah sphatase measurementOrdered By: Ron Cooley on 04-03-2025 ALP [Catalytic activity/Vol] 79 U/L 40-129 [facility] Serum or plasma calcium walt urement (mass/volume)Ordered By: Ron Cooley on 04-03-2025 Calcium [Mass/Vol] 9.2 mg/dL 7.6-11.0 [facility] Serum or plasma cholesterol in HDL measurement (mass/volume)Ordered By: Ron Cooley on 04-03-2025 Cholesterol in HDL [Mass/Vol] 46 mg/dL >40 [facility] Comment on above: National Cholesterol Education Program (NCEP) guidelines:<40 mg/dL: Low HDL-cholesterol (major risk factor for CHD)>= 60 mg/dL: High HDL-cholesterol (negative risk factor for CHD)HDL-cholesterol is affected by a number of factors, e.g. smoking, exercise, hormones, sex and age. Serum or plasma cholesterol measurement (mass/volume)Ordered By: Ron Cooley on 04-03-2025 Cholesterol [Mass/Vol] 120 mg/dL <201 [facility] Comment on above: Cholesterol level, D esirable <200 mg/dLBorderline high cholesterol 200-239 mg/dLHigh cholesterol >=240 mg/dLRecommendations of the NCEP Adult Treatment Panel for the following risk-cutoff thresholds for the [place] population. Serum or plasma urea nitroge n measurement (mass/volume)Ordered By: Ron Cooley on 04-03-2025 Urea nitrogen [Mass/Vol] 16 mg/dL 4-19 [facility] Sodium levelOrdered By: Ron Cooley on 04-03-2025 Sodium [Moles/Vol] 142 mmol/L 133-145 [facility] Total proteinOrdered By: Kwabena Cooley on 04-03-2025 Protein [Mass/Vol] 6.6 g/dL 5.9-8.4 [facility] Triglycerides measurementOrd ered By: Ron Cooley on 04-03-2025 Triglyceride [Mass/Vol] 135 mg/dL <199 [facility] Comment on above: The drugs N-Acetylcy steine and Metamizole may falsely depress this assay. Normal range: <150 mg/dLBorderline High: 150-199 mg/dLHigh: 200-499 mg/dLVery High: >500 mg/dL Vitamin D,25 Hydroxyon 04-03 Vitamin D 25-OH 39.2 ng/mL Normal 30-100 [facility] Comment on above: Order Comment: Order Date: 03/13/25 Order Info: [id number] - CMP Order Info: [id number] - LIPID Result Comment: Lisa min D Status Deficiency: <20 ng/mL (50nmol/L) Insufficiency: 20-30 ng/mL (50-75 nmol/L) Sufficiency: 30-100 ng/mL (75-250 nmol/L) Toxicity: >100 ng/mL (>250 nmol/L) Performed By: #### L 506.1001 #### [facility] [address] [place], [place], [address] Chest without Contraston Chest without Contrast [facility] Imaging Services [address] [place] [address] Chest without Contrast MR#: [id number] Acct: [id number] Name: KEVIN GRIFFITH Rep #: [id number] : 1945 M 79 From: Donnell Corey MD PCP: Dr. Ron Cooley MD Status: DEP CLI Study: Chest without Contrast Date of Exam: 03/24/25 Exam# [id number] Ordering Dr: Jose Perez MD EXAM: CT [...] scarring, greater on the left. Reading Location: [facility] CC: Dr. Ron Cooley MD; Dr. Jose Perez MD Ell Tutor: Signed Normal [facility] Neurology Visit Reporton Neurology Visit Report [facility] [address], [address] [place] [address] OFFICE VISIT Date of Service: 03/20/25 MR#: [id number] Acct: [id number] Name: KEVIN GRIFFITH Rep #: [id number] : 1945 Provider: Dr. Vick beltran MD Age/Sex: 79/M Location: [facility] [place]. Status: Signed with Addenda ADDENDUM by Dr. Vick Santo MD on 05/01/25 at 1626 Addendum Addendum (05/01/2025): The patient is now on metformin. Vitamin B12 and folate levels will be checked (deficiencies of these medications may occur with long-term metformin use). 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 Normal [facility] Absolute lymphocyte countOrd ered By: Jose Perez on 03-03-2025 Lymphocytes Auto (Unsp spec) [#/Vol] 4.51 10*3/uL 0.83-4.51 [facility] Absolute neutrophil countOrd ered By: Jose Perez on 03-03-2025 Neutrophils (Bld) [#/Vol] 5.4 10*3/uL 2.0-7.7 [facility] Automated lymphocyte count a s percentage of total leukocytesOrdered By: Jose Perez on 03-03-2025 Lymphocytes/100 WBC Auto (Unsp spec) 39.8 % 19-41 [facility] Basophil percentageOrdered B y: Jose Perez on 03-03-2025 Basophils/100 WBC (Bld) 0.7 % 0-1 [facility] CBC W/Diff, Automatedon 02-18 Absolute Lymph 4.51 X10 3/uL Normal 0.83-4.51 [facility] Comment on above: Performed By: #### L 100.0100 #### [facility] [address], [address] Absolute Neut 5.4 X10 3/uL Normal 2.0-7.7 [facility] Comment on above: Performed By: #### L 100.0100 #### [facility] [address] [place], [address] Basophils/100 WBC (Bld) 0.7 % Normal 0-1 [facility] Comment on above: Performed By: #### L 100.0100 #### [facility] [address] [place], [address] Eosinophils/100 WBC (Bld) 1.2 % Normal 0-5 [facility] Comment on above: Performed By: #### L 100.0100 #### [facility] [address] [place], [address] Erythrocyte distribution width (RBC) [Ratio] 13.6 % Normal 11.6-14.6 [facility] Comment on above: Performed By: #### L 100.0100 #### [facility] [address] [place], [address] Hematocrit (Bld) [Volume fraction] 44.2 % Normal 40-54 [facility] Comment on above: Performed By: #### L 100.0100 #### [facility] [address] [place], [address] Hemoglobin (Bld) [Mass/Vol] 14.5 g/dL Normal 13.0-16.5 [facility] Comment on above: Performed By: #### L 100.0100 #### [facility] [address] [place], [address] IG% 0.500 Normal 0.0-0.9 [facility] Comment on above: Result Comment: IG% - Immature Granulocytes (promyelocytes, myelocytes and metamyelocytes) > 1% indicates that a LEFT SHIFT is Present. Performed By: #### L 100.0100 #### [facility] [address] [place], [address] Lymphocytes/100 WBC (Bld) 39.8 % Normal 19-41 [facility] Comment on above: Performed By: #### L 100.0100 #### [facility] [address] [place], [address] MCH (RBC) [Entitic mass] 30.3 pg Normal 27.0-32.0 [facility] Comment on above: Performed By: #### L 100.0100 #### [facility] [address] [place], [address] MCHC (RBC) [Mass/Vol] 32.8 g/dL Normal 32-36 [facility] Comment on above: Performed By: #### L 100.0100 #### [facility] [address] [place], [address] MCV (RBC) [Entitic vol] 92.3 fL Normal 80-94 [facility] Comment on above: Performed By: #### L 100.0100 #### [facility] [address] [place], [address] Monocytes/100 WBC (Bld) 9.8 % Normal 0-10 [facility] Comment on above: Performed By: #### L 100.0100 #### [facility] [address] [place], [address] Neutrophils/100 WBC (Bld) 48.0 % Normal 47-70 [facility] Comment on above: Performed By: #### L 100.0100 #### [facility] [place], [address] Nucleated RBC (Bld) [#/Vol] 0 10*3/uL Normal 0-5 [facility] Comment on above: Performed By: #### L 100.0100 #### [facility] [address] [place], [address] Platelet mean volume (Bld) [Entitic vol] 10.5 fL Normal 6.2-12.0 [facility] Comment on above: Performed By: #### L 100.0100 #### [facility] [address] [place], [address] Platelets (Bld) [#/Vol] 339 10*3/uL Normal 150-450 [facility] Comment on above: Performed By: #### L 100.0100 #### [facility] [address] [place], [address] RBC (Bld) [#/Vol] 4.79 10*6/uL Normal 4.6-6.2 [facility] Comment on above: Performed By: #### L 100.0100 #### [facility] [address] [place], [address] RDW SD 46.1 fl High 35.1-43.9 [facility] Comment on above: Performed By: #### L 100.0100 #### [facility] [address] [place], [address] WBC (Bld) [#/Vol] 11.3 10*3/uL High 4.4-11.0 [facility] Comment on above: Performed By: #### L 100.0100 #### [facility] [address] [place], [address] Eosinophil percentageOrdered By: Jose Perez on 03-03-2025 Eosinophils/100 WBC (Bld) 1.2 % 0-5 [facility] Erythrocyte distribution wid th (RBC) [Ratio]Ordered By: Jose Perez on 03-03-2025 Erythrocyte distribution width (RBC) [Entitic vol] 46.1 fL High 35.1-43.9 [facility] Erythrocyte distribution wid th ratioOrdered By: Jose Perez on 03-03-2025 Erythrocyte distribution width (RBC) [Ratio] 13.6 % 11.6-14.6 [facility] Erythrocyte distribution wid th standard deviationOrdered By: Jose Ana on 03-03-2025 Erythrocyte distribution width (RBC) [Ratio] 46.1 fl High 35.1-43.9 [facility] Hematocrit Auto (Bld) [Volum e fraction]Ordered By: Jose Perez on 03-03-2025 Hematocrit (Bld) [Volume fraction] 44.2 % 40-54 [facility] Hemoglobin measurementOrdere d By: Jose Perez on 03-03-2025 Hemoglobin (Bld) [Mass/Vol] 14.5 g/dL 13.0-16.5 [facility] Immature granulocytes/100 WB C Auto (Bld)Ordered By: Jose Perez on 03-03-2025 Immature granulocytes/100 WBC (Bld) 0.500 % 0.0-0.9 [facility] Comment on above: IG% - Immature Granu locytes (promyelocytes, myelocytes and metamyelocytes) > 1% indicates that a LEFT SHIFT is Present. Lymphocytes Auto (Unsp spec) [#/Vol]Ordered By: Jose Perez on 03-03-2025 Lymphocytes (Bld) [#/Vol] 4.51 10*3/uL 0.83-4.5 1 [facility] Lymphocytes/100 WBC Auto (Un sp spec)Ordered By: Jose Perez on 03-03-2025 Lymphocytes/100 WBC (Bld) 39.8 % 19-41 [facility] MCV (mean corpuscular volume ) determinationOrdered By: Jose Perez on 03-03-2025 MCV (RBC) [Entitic vol] 92.3 fL 80-94 [facility] Mean corpuscular hemoglobin (MCH) determinationOrdered By: Jose Perez on 03-03-2025 MCH (RBC) [Entitic mass] 30.3 pg 27.0-32.0 [facility] Mean corpuscular hemoglobin concentration (MCHC) determinationOrdered By: Jose Perez on 03-03-2025 MCHC (RBC) [Mass/Vol] 32.8 g/dL 32-36 [facility] Mean platelet volume determi nationOrdered By: Jose Perez on 03-03-2025 Platelet mean volume (Bld) [Entitic vol] 10.5 fL 6.2-12.0 [facility] Monocyte percentageOrdered B y: Jose Perez on 03-03-2025 Monocytes/100 WBC (Bld) 9.8 % 0-10 [facility] Neutrophil percentageOrdered By: Jose Perez on 03-03-2025 Neutrophils/100 WBC (Bld) 48.0 % 47-70 [facility] Nucleated red blood cell per centageOrdered By: Jose Perez on 03-03-2025 Nucleated RBC/100 WBC (Bld) [Ratio] 0 % 0-5 [facility] Platelet countOrdered By: Jasmine Perez on 03-03-2025 Platelets (Bld) [#/Vol] 339 10*3/uL 150-450 [facility] RBC Auto (Bld) [#/Vol]Ordere d By: Jose Perez on 03-03-2025 RBC (Bld) [#/Vol] 4.79 10*6/uL 4.6-6.2 [facility] White blood cell (WBC) count Ordered By: Jose Perez on 03-03-2025 WBC (Bld) [#/Vol] 11.3 10*3/uL High 4.4-11.0 [facility] SP/HP.SP.[place] 02-26-2025 SP/HP.SP.EV [facility] Speech Pathology [facility] [address] [place] [address] / REHABILITATION SERVICES INITIAL EVALUATION MR#: [id number] Acct: [id number] Name: KEVIN GRIFFITH Rep #: [id number] : 1945 79 From: Ayden Linares M.A., [facility] Referring Dr.: Dr. 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 History Attending Doctor: Referring Doctor: Reason [...] waiting list for an assisted living ( [place]) as he is exhibiting increased memory deficits [...] current prescribed condition?: No Personal Preferred language: Greenlandic Patient Allergies Allergies Allergies: Allergies metoclopramide (From [...] 02/25/25 15:18 Speech Therapy by Ayden Linares [facility] Speech Pathology [address] [place] [address] Modified Barium Swallow Study MR#: [id number] Acct: [id number] Name: KEVIN GRIFFITH Rep #: [id number] : 1945 79 From: Chayito Barber Modified [...] for MBSS as referred by neurologist Dr. Baddour to evaluate dysphagia. He is diagnosed with [...] airway 2 (more content not included)... Normal [facility] AST(SGOT)on 02-20-2025 AST [Catalytic activity/Vol] 13 U/L Normal <=37 [facility] Comment on above: Performed By: #### L 500.2500, L501.4405, L501.9985, L502.0250, L501.4100 #### [facility] [address] [place], [address] Alanine Aminotransferas (SGP T)on 02-20-2025 ALT [Catalytic activity/Vol] 7 U/L Normal <=46 [facility] Comment on above: Performed By: #### L 501.4100, L501.4405, L500.2500, L501.9985 #### [facility] [address] [place], [address] Albumin DL <= 20 mg/L (U) [M ass/Vol]Ordered By: Natasha Gregory on 02-20-2025 Urine Random Microalbumin 13.6 mg/L NO RANGE EST. [facility] Anion gap in Serum or Plasma Ordered By: Natasha Gregory on 02-20-2025 Anion gap [Moles/Vol] 13 mmol/L 5-15 [facility] BUN/creatinine ratioOrdered By: Natasha Gregory on 02-20-2025 Urea nitrogen/Creatinine [Mass ratio] 23.0 mg/mg High 10- [facility] Basic Metabolic Profile (BMP )on 02-20-2025 BUN/CRE 23.0 RATIO High - [facility] Comment on above: Performed By: #### L 500.2500, L501.4405, L501.9985, L502.0250, L501.4100 #### [facility] [address] [place], [address] Calcium [Mass/Vol] 9.0 mg/dL Normal 7.6-11.0 [facility] Comment on above: Performed By: #### L 500.2500, L501.4405, L501.9985, L502.0250, L501.4100 #### [facility] [address] [place], [address] Chloride [Moles/Vol] 102 mmol/L Normal 98-108 [facility] Comment on above: Performed By: #### L 500.2500, L501.4405, L501.9985, L502.0250, L501.4100 #### [facility] [address] [place], [address] CO2 [Moles/Vol] 21.9 mmol/L Normal 21.0-32.0 [facility] Comment on above: Performed By: #### L 500.2500, L501.4405, L501.9985, L502.0250, L501.4100 #### [facility] [address] [place], [address] Creatinine [Mass/Vol] 0.83 mg/dL Normal 0.70-1.20 [facility] Comment on above: Performed By: #### L 500.2500, L501.4405, L501.9985, L502.0250, L501.4100 #### [facility] [address] [place], [address] GAP 13 Normal 5-15 [facility] [facility] Comment on above: Performed By: #### L 500.2500, L501.4405, L501.9985, L502.0250, L501.4100 #### [facility] [address] [place], [address] GFR/1.73 sq M.predicted among non-blacks MDRD (S/P/Bld) [Vol rate/Area] 89 mL/min/{1.73_m2} Normal >60 [facility] Comment on above: Result Comment: mL/m in/1.73m2 CKD-EPI Creatinine Equation (2020) Performed By: #### L 500.2500, L501.4405, L501.9985, L502.0250, L501.4100 #### [facility] [address] [place], [address] Glucose [Mass/Vol] 277 mg/dL High 70-99 [facility] Comment on above: Performed By: #### L 500.2500, L501.4405, L501.9985, L502.0250, L501.4100 #### [facility] [address] [place], [address] Potassium [Moles/Vol] 4.1 mmol/L Normal 3.3-5.1 [facility] Comment on above: Performed By: #### L 500.2500, L501.4405, L501.9985, L502.0250, L501.4100 #### [facility] [address] [place], [address] Sodium [Moles/Vol] 137 mmol/L Normal 133-145 [facility] Comment on above: Performed By: #### L 500.2500, L501.4405, L501.9985, L502.0250, L501.4100 #### [facility] [address] [place], [address] Urea nitrogen [Mass/Vol] 19 mg/dL Normal 4-19 [facility] Comment on above: Performed By: #### L 500.2500, L501.4405, L501.9985, L502.0250, L501.4100 #### [facility] [address] [place], [place], [address] Carbon dioxide, total [Moles /volume] in Central venous bloodOrdered By: Natasha Gregory on 02-20-2025 CO2 [Moles/Vol] 21.9 mmol/L 21.0-32.0 [facility] Chloride assayOrdered By: Terri Gregory on 02-20-2025 Chloride [Moles/Vol] 102 mmol/L 98-108 [facility] Creatinine Unsp time (U) [Ma ss/Vol]Ordered By: Natasha Gregory on 02-20-2025 Creatinine (U) [Mass/Vol] 155.00 mg/dL 39 .00-259.0 0 [facility] GFR/1.73 sq M.predicted krystal g non-blacks MDRD (S/P/Bld) [Vol rate/Area]Ordered By: Natasha Gregory on 02-20-2025 Estimated GFR (MDRD) Non-Af Amer 89 >60 [facility] Comment on above: mL/min/1.73m2 CKD-EP I Creatinine Equation (2020) Glomerular filtration rate ( GFR) estimation/1.73 sq m using serum, plasma, or whole bOrdered By: Natasha Gregory on 02-20-2025 GFR/1.73 sq M.predicted among non-blacks MDRD (S/P/Bld) [Vol rate/Area] 89 mL/min/{1.73_m2} >60 [facility] Comment on above: mL/min/1.73m2 CKD-EP I Creatinine Equation (2020) Hemoglobin A1con 02-20-2025 HbA1c (Bld) [Mass fraction] 7.1 % Normal <=5.6 [facility] Comment on above: Performed By: #### L 500.2500, L501.4405, L501.9985, L502.0250, L501.4100 #### [facility] [address] [place], [address] Hemoglobin A1c percentageOrd ered By: Natasha Gregory on 02-20-2025 HbA1c (Bld) [Mass fraction] 7.1 % >5.7 [facility] - Chemistry and C hemistry - challengeOrdered By: Natasha Gregory on 02-20-2025 AST [Catalytic activity/Vol] 13 U/L <38 [facility] Microalbumin/creat ratio urO rdered By: Natasha Gregory on 02-20-2025 Urine Microalbumin/Creatinine Ratio 87.7 mg/g CRE [facility] Potassium (Unsp spec) [Mass/ Vol]Ordered By: Natasha Gregory on 02-20-2025 Potassium [Moles/Vol] 4.1 mmol/L 3.3-5.1 [facility] Potassium measurement (mass/ volume)Ordered By: Natasha Gregory on 02-20-2025 Potassium (Unsp spec) [Mass/Vol] 4.1 mmol/L 3.3-5.1 [facility] Random urine creatinine walt urement (mass/volume)Ordered By: Natasha Gregory on 02-20-2025 Creatinine Unsp time (U) [Mass/Vol] 155.00 mg/dL 39.00-259.0 0 [facility] Serum creatinine measurement (mass/volume)Ordered By: Natasha Gregory on 02-20-2025 Creatinine [Mass/Vol] 0.83 mg/dL 0.70-1.20 [facility] Serum glucose measurement (m ass/volume)Ordered By: Natasha Gregory on 02-20-2025 Glucose [Mass/Vol] 277 mg/dL High 70-99 [facility] Serum or plasma alanine max otransferase (ALT) measurementOrdered By: Natasha Gregory on 02-20-2025 ALT [Catalytic activity/Vol] 7 U/L <47 [facility] Serum or plasma calcium walt urement (mass/volume)Ordered By: Natasha Gregory on 02-20-2025 Calcium [Mass/Vol] 9.0 mg/dL 7.6-11.0 [facility] Serum or plasma urea nitroge n measurement (mass/volume)Ordered By: Natasha Gregory on 02-20-2025 Urea nitrogen [Mass/Vol] 19 mg/dL 4-19 [facility] Sodium levelOrdered By: Josefina Gregory on 02-20-2025 Sodium [Moles/Vol] 137 mmol/L 133-145 [facility] Urine albumin measurement [facility] detection limit of 20 mg/L or less (mass/volume)Ordered By: Natasha Gregory on 02-20-2025 Albumin DL <= 20 mg/L (U) [Mass/Vol] 13.6 mg/L NO RANGE EST. [facility] Brain/Head without Contrasto n 02-14-2025 Brain/Head without Contrast [facility] Services [address] [place], [place] [address] Brain/Head without Contrast MR#: [id number] Acct: [id number] Name: KEVIN GRIFFITH Rep #: [id number] : 1945 M 79 From: Tatiana Guadalupe nd, MD PCP: Dr. Ron Cooley MD Status: REG ER Study: Brain/Head without Contrast Date of Exam: 01/19 07/14 Exam# [id number] Ordering Dr: Joe Soto DO EXAM: BRAIN/HEAD [...] ischemic change and age-related change. Reading Location: [facility] CC: Dr. Ron Cooley MD; Dr. Joe Soto DO Ell Tutor: Signed Normal [facility] Emergency Department Summary on 02-14-2025 Emergency Department Summary [facility] Medical Records Department [address] [place] [address] Emergency Department Summary 02/14/25 MR#: [id number] Acct: [id number] Name: KEVIN GRIFFITH Rep #: [id number] : 1945 79 From: Joe Soto DO [...] noted some blood on his scalp earlier [facility] Medical History Parkinson's disease Right bundle branch [...] polyuria Hematol (more content not included)... Normal [facility] Spine Cervical without Contr ason 02-14-2025 Spine Cervical without Contras [facility] [address] [place] [address] Spine Cervical without Contras MR#: [id number] Acct: [id number] Name: KEVIN GRIFFITH Rep #: [id number] : 1945 M 79 From: Tatiana Guadalupe nd, MD PCP: Dr. Ron Cooley MD Status: REG ER Study: Spine Cervical without Contras Date of Exam: 0 02/14/25 Exam# [id number] Ordering Dr: Joe Soto DO PROCEDURE: SPINE [...] ACUTE CERVICAL FRACTURE. DEGENERATIVE CHANGES. Reading Location: [id number] CC: Dr. Ron Cooley MD; Dr. Joe Soto DO Ell Tutor: Signed Normal [facility] Neurology Visit Reporton Neurology Visit Report [facility] [address], [address] [place] [address] OFFICE VISIT Date of Service: 02/06/25 MR#: [id number] Acct: [id number] Name: KEVIN GRIFFITH Rep #: [id number] : 1945 Provider: Dr. Vick beltran MD Age/Sex: 79/M Location: [facility] [place]. 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 Normal [facility] Chest PA and Lateralon 01-21 Chest PA and Lateral [facility] [address] [place] [address] Chest PA and Lateral MR#: [id number] Acct: [id number] Name: KEVIN GRIFFITH Rep #: [id number] : 1945 M 79 From: Donnell Corey MD PCP: Dr. Ron Cooley MD Status: [facility] Study: Chest PA and Lateral Date of Exam: 01/21/25 Exam# [id number] Ordering Dr: Ron Cooley MD EXAM: XR Chest, 2 Views CLINICAL INDICATION: TECHNIQUE: Frontal and lateral views of the chest. COMPARISON: No relevant prior studies available. FINDINGS: LUNGS AND PLEURAL SPACES: Unremarkable. No consolidation. No pneumothorax. HEART: Unremarkable. No cardiomegaly. MEDIASTINUM: Unremarkable. Normal mediastinal contour. BONES/JOINTS: Unremarkable. No acute fracture. RAD/Chest PA and Lateral IMPRESSION: No acute cardiopulmonary process. Reading Location: [facility] CC: Dr. Ron Cooley MD Ell Tutor: Signed Normal [facility] Microalb:Creat Ratio,Random URon 12-10-2024 Creatinine [Mass/Vol] 104.00 mg/dL Normal NO RAN GE EST. [facility] Comment on above: Order Comment: Order Date: 12/04/24Order Info: [id number] - MIACRE Performed By: #### L 501.4100, L501.4405, L500.2500, L501.9985 #### [facility] [address] [place], [place], [address] MALB:CRE 17.0 mg/g CRE Normal <30 mg/g CRE [facility] Comment on above: Order Comment: Order Date: 12/04/24Order Info: [id number] - MIACRE Performed By: #### L 501.4100, L501.4405, L500.2500, L501.9985 #### [facility] [address] [place], [place], [address] MICROALBUMIN,UR 17.7 mg/L Normal NO RANGE EST. [facility] Comment on above: Order Comment: Order Date: 12/04/24Order Info: [id number] - MIACRE Performed By: #### L 501.4100, L501.4405, L500.2500, L501.9985 #### [facility] [address] [place], [place], [address] Neurology Visit Reporton Neurology Visit Report [facility] [address], [address] [place], [place] [address] OFFICE VISIT Date of Service: 12/10/24 MR#: [id number] Acct: [id number] Name: KEVIN GRIFFITH Rep #: [id number] : 1945 Provider: Dr. Vick beltran MD Age/Sex: 79/M Location: [facility] [place].BN Status: Signed with Addenda ADDENDUM by Dr. Vick Santo MD on 12/19/24 at 1123 Addendum Addendum (12/19/2024): The patient has insomnia and wishes to resume doxepin. Doxepin 25 mg nightly will be resumed. 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 Normal [facility] Random urine microalbumin me asurementOrdered By: Ron Cooley on 12-10-2024 Urine Random Microalbumin 17.7 mg/L NO RANGE EST. [facility] Urine albumin/creatinine rat io for detection of microalbuminuriaOrdered By: Ron Cooley on 12-10-2024 Urine Microalbumin/Creatinine Ratio 17.0 mg/g CRE <30 [facility] Urine creatinine measurement (mass/volume)Ordered By: Ron Cooley on 12-10-2024 Creatinine (U) [Mass/Vol] 104.00 mg/dL NO RANGE EST. [facility] Brain/Head without Contrasto n 12-05-2024 Brain/Head without Contrast [facility] [address] [place] [address] Brain/Head without Contrast MR#: [id number] Acct: [id number] Name: KEVIN GRIFFITH Rep #: [id number] : 1945 M 79 From: Siva Horton DO PCP: Dr. Ron Cooley MD Status: PRE ER Study: Brain/Head without Contrast Date of Exam: 11/20 05/14 Exam# [id number] Ordering Dr: [place] [id number] STUDY: CT BRAIN WITHOUT CONTRAST REASON FOR [...] Signed: Siva Horton DO at 17:20 EST , CC: Dr. Ron Cooley MD; Dr. Estuardo Mccormack DO Ell Tutor: Signed Normal [facility] Emergency Department Summary on 12-05-2024 Emergency Department Summary [facility] Medical Records Department [address] [place] [address] Emergency Department Summary 12/05/24 MR#: [id number] Acct: [id number] Name: KEVIN GRIFFITH Rep #: [id number] : 1945 79 From: Estuardo Mccormack DO PCP: Dr. oRn Cooley MD Status:DEP ER Location: ED HPI HPI - Fall History of Present Illness Chief Complaint: Fall [facility] Medical History Parkinson's disease Right bundle branch [...] (Updated 10/12/24 @ 11:[address] Osman Fraooq MD) household members: spouse Smoking Status: Former [...] raccoon e (more content not included)... Normal [facility] Spine Cervical without Contr ason 12-05-2024 Spine Cervical without Contras [facility] [address] [place] [address] Spine Cervical without Contras MR#: [id number] Acct: [id number] Name: KEVIN GRIFFITH Rep #: [id number] : 1945 M 79 From: Siva Horton DO PCP: Dr. Ron Cooley MD Status: REG ER Study: Spine Cervical without Contras Date of Exam: 0 12/05/24 Exam# [id number] Ordering Dr: [place] [id number] STUDY: CT CERVICAL SPINE WITHOUT CONTRAST REASON [...] 18:32 EST Reading Location ID and State: [facility] / [place] Tel [phone], Service support , CC: Dr. Ron Cooley MD; Dr. Estuardo Mccormack DO Ell Tutor: Signed Normal [facility] 60-OP-Kcnnryg DOrdered By: Chetan Cooley on 01-15-2025 Vitamin D 25-Hydroxy 47.5 ng/mL [facility] Comment on above: Vitamin D 25(OH) Sta tus Range Deficiency <20 ng/mL (50nmol/L) Insufficiency 20 - 30 ng/mL (50 - 75 nmol/L) Sufficiency 30 - 100 ng/mL (75 - 250 nmol/L) Toxicity >100 ng/mL (>250 nmol/L) Absolute lymphocyte countOrd ered By: Ron Cooley on 12-04-2024 Lymphocytes Auto (Unsp spec) [#/Vol] 3.42 10*3/uL 0.83-4.51 [facility] Absolute neutrophil countOrd ered By: Ron Cooley on 12-04-2024 Neutrophils (Bld) [#/Vol] 5.9 10*3/uL 2.0-7.7 [facility] Albumin to globulin ratioOrd ered By: Ron Cooley on 12-04-2024 Albumin/Globulin [Mass ratio] 1.0 {ratio} 0.9-2.4 [facility] Automated lymphocyte count a s percentage of total leukocytesOrdered By: Ron Cooley on 12-04-2024 Lymphocytes/100 WBC Auto (Unsp spec) 31.5 % 19-41 [facility] Basophil percentageOrdered B y: Ron Cooley on 12-04-2024 Basophils/100 WBC (Bld) 1.2 % High 0-1 [facility] Bilirubin, totalOrdered By: Ron Cooley on 12-04-2024 Bilirubin [Mass/Vol] 0.80 mg/dL 0.20-1.00 [facility] Comment on above: For patients on eltr ombopag therapy, use of Dimension [place] TBIL is not recommended. Blood urea nitrogen (BUN)/cr eatinine ratioOrdered By: Ron Cooley on 12-04-2024 Urea nitrogen/Creatinine [Mass ratio] 19.7 mg/mg 10-20 [facility] CBC W/Diff, Automatedon 11-20 Absolute Lymph 3.42 X10 3/uL Normal 0.83-4.51 [facility] Comment on above: Order Comment: Order Date: 12/04/24Order Info: 0184-1 - CBCD Performed By: #### L 501.4100, L501.4405, L500.2500, L501.9985 #### [facility] [address] [place], [address] Absolute Neut 5.9 X10 3/uL Normal 2.0-7.7 [facility] Comment on above: Order Comment: Order Date: 12/04/24Order Info: 0184-1 - CBCD Performed By: #### L 501.4100, L501.4405, L500.2500, L501.9985 #### [facility] [address] [place], [address] Basophils/100 WBC (Bld) 1.2 % High 0-1 [facility] Comment on above: Order Comment: Order Date: 12/04/24Order Info: 0184-1 - CBCD Performed By: #### L 501.4100, L501.4405, L500.2500, L501.9985 #### [facility] [address] [place], [address] Eosinophils/100 WBC (Bld) 1.8 % Normal 0-5 [facility] Comment on above: Order Comment: Order Date: 12/04/24Order Info: 018- - CBCD Performed By: #### L 501.4100, L501.4405, L500.2500, L501.9985 #### [facility] [address] [place], [address] Erythrocyte distribution width (RBC) [Ratio] 13.4 % Normal 11.6-14.6 [facility] Comment on above: Order Comment: Order Date: 12/04/24Order Info: 0184-1 - CBCD Performed By: #### L 501.4100, L501.4405, L500.2500, L501.9985 #### [facility] [address] [place], [address] Hematocrit (Bld) [Volume fraction] 47.1 % Normal 40-54 [facility] Comment on above: Order Comment: Order Date: 12/04/24Order Info: 0184-1 - CBCD Performed By: #### L 501.4100, L501.4405, L500.2500, L501.9985 #### [facility] [address] [place], [address] Hemoglobin (Bld) [Mass/Vol] 15.4 g/dL Normal 13.0-16.5 [facility] Comment on above: Order Comment: Order Date: 12/04/24Order Info: 0184-1 - CBCD Performed By: #### L 501.4100, L501.4405, L500.2500, L501.9985 #### [facility] [address] [place], [address] IG% 0.600 Normal 0.0-0.9 [facility] Comment on above: Order Comment: Order Date: 12/04/24Order Info: 0184-1 - CBCD Result Comment: IG% - Immature Granulocytes (promyelocytes, myelocytes and metamyelocytes) > 1% indicates that a LEFT SHIFT is Present. Performed By: #### L 501.4100, L501.4405, L500.2500, L501.9985 #### [facility] [address] [place], [address] Lymphocytes/100 WBC (Bld) 31.5 % Normal 19-41 [facility] Comment on above: Order Comment: Order Date: 12/04/24Order Info: 0184-1 - CBCD Performed By: #### L 501.4100, L501.4405, L500.2500, L501.9985 #### [facility] [address] [place], [address] MCH (RBC) [Entitic mass] 30.4 pg Normal 27.0-32.0 [facility] Comment on above: Order Comment: Order Date: 12/04/24Order Info: 0184-1 - CBCD Performed By: #### L 501.4100, L501.4405, L500.2500, L501.9985 #### [facility] [address] [place], [address] MCHC (RBC) [Mass/Vol] 32.7 g/dL Normal 32-36 [facility] Comment on above: Order Comment: Order Date: 12/04/24Order Info: 0184-1 - CBCD Performed By: #### L 501.4100, L501.4405, L500.2500, L501.9985 #### [facility] [address] [place], [address] MCV (RBC) [Entitic vol] 92.9 fL Normal 80-94 [facility] Comment on above: Order Comment: Order Date: 12/04/24Order Info: 0184-1 - CBCD Performed By: #### L 501.4100, L501.4405, L500.2500, L501.9985 #### [facility] [address] [place], [address] Monocytes/100 WBC (Bld) 10.8 % High 0-10 [facility] Comment on above: Order Comment: Order Date: 12/04/24Order Info: 0184-1 - CBCD Performed By: #### L 501.4100, L501.4405, L500.2500, L501.9985 #### [facility] [address] [place], [address] Neutrophils/100 WBC (Bld) 54.1 % Normal 47-70 [facility] Comment on above: Order Comment: Order Date: 12/04/24Order Info: 0184-1 - CBCD Performed By: #### L 501.4100, L501.4405, L500.2500, L501.9985 #### [facility] [address] [place], [address] Nucleated RBC (Bld) [#/Vol] 0 10*3/uL Normal 0-5 [facility] Comment on above: Order Comment: Order Date: 12/04/24Order Info: 0184-1 - CBCD Performed By: #### L 501.4100, L501.4405, L500.2500, L501.9985 #### [facility] [address] [place], [address] Platelet mean volume (Bld) [Entitic vol] 10.8 fL Normal 6.2-12.0 [facility] Comment on above: Order Comment: Order Date: 12/04/24Order Info: 0184-1 - CBCD Performed By: #### L 501.4100, L501.4405, L500.2500, L501.9985 #### [facility] [address] [place], [address] Platelets (Bld) [#/Vol] 281 10*3/uL Normal 150-450 [facility] Comment on above: Order Comment: Order Date: 12/04/24Order Info: 0184-1 - CBCD Performed By: #### L 501.4100, L501.4405, L500.2500, L501.9985 #### [facility] [address] [place], [address] RBC (Bld) [#/Vol] 5.07 10*6/uL Normal 4.6-6.2 [facility] Comment on above: Order Comment: Order Date: 12/04/24Order Info: 0184-1 - CBCD Performed By: #### L 501.4100, L501.4405, L500.2500, L501.9985 #### [facility] [address] [place], [address] RDW SD 45.1 fl High 35.1-43.9 [facility] Comment on above: Order Comment: Order Date: 12/04/24Order Info: 0184-1 - CBCD Performed By: #### L 501.4100, L501.4405, L500.2500, L501.9985 #### [facility] [address] [place], [address] WBC (Bld) [#/Vol] 10.9 10*3/uL Normal 4.4-11.0 [facility] Comment on above: Order Comment: Order Date: 12/04/24Order Info: 0184-1 - CBCD Performed By: #### L 501.4100, L501.4405, L500.2500, L501.9985 #### [facility] [address] [place], [address] Carbon dioxide measurementOr dered By: Ron Cooley on 12-04-2024 CO2 [Moles/Vol] 29.0 mmol/L 21.0-32.0 [facility] Chloride measurementOrdered By: Ron Cooley on 12-04-2024 Chloride [Moles/Vol] 105 mmol/L 98-107 [facility] Comprehensive Metabolic Prof ilon 12-04-2024 Albumin [Mass/Vol] 3.7 g/dL Normal 3.2-5.0 [facility] Comment on above: Order Comment: Order Date: 12/04/24Order Info: [id number] - CMPOrder Info: [id number] - LIPIDOrder Info: [id number] - MG Performed By: #### L 501.4100, L501.4405, L500.2500, L501.9985 #### [facility] [address] [place], [address] Albumin/Globulin [Mass ratio] 1.0 {ratio} Normal 0.9-2.4 [facility] Comment on above: Order Comment: Order Date: 12/04/24Order Info: [id number] - CMPOrder Info: [id number] - LIPIDOrder Info: [id number] - MG Performed By: #### L 501.4100, L501.4405, L500.2500, L501.9985 #### [facility] [address] [place], [address] ALK P 91 U/L Normal 45-117 [facility] Comment on above: Order Comment: Order Date: 12/04/24Order Info: [id number] - CMPOrder Info: [id number] - LIPIDOrder Info: [id number] - MG Performed By: #### L 501.4100, L501.4405, L500.2500, L501.9985 #### [facility] [address] [place], [address] ALT [Catalytic activity/Vol] 11 U/L Low 16-61 [facility] Comment on above: Order Comment: Order Date: 12/04/24Order Info: [id number] - CMPOrder Info: [id number] - LIPIDOrder Info: [id number] - MG Performed By: #### L 501.4100, L501.4405, L500.2500, L501.9985 #### [facility] [address] [place], [address] AST [Catalytic activity/Vol] 13 U/L Low 15-37 [facility] Comment on above: Order Comment: Order Date: 12/04/24Order Info: [id number] - CMPOrder Info: [id number] - LIPIDOrder Info: [id number] - MG Performed By: #### L 501.4100, L501.4405, L500.2500, L501.9985 #### [facility] [address] [place], [address] Bilirubin [Mass/Vol] 0.80 mg/dL Normal 0.20-1.00 [facility] Comment on above: Order Comment: Order Date: 12/04/24Order Info: [id number] - CMPOrder Info: [id number] - LIPIDOrder Info: [id number] - MG Result Comment: For patients on eltrombopag therapy, use of Dimension [place] TBIL is not recommended. Performed By: #### L 501.4100, L501.4405, L500.2500, L501.9985 #### [facility] [address] [place], [address] BUN/CRE 19.7 RATIO Normal 10-20 [facility] Comment on above: Order Comment: Order Date: 12/04/24Order Info: [id number] - CMPOrder Info: [id number] - LIPIDOrder Info: [id number] - MG Performed By: #### L 501.4100, L501.4405, L500.2500, L501.9985 #### [facility] [address] [place], [address] CA,Total 9.4 mg/dL Normal 8.5-10.1 [facility] Comment on above: Order Comment: Order Date: 12/04/24Order Info: [id number] - CMPOrder Info: [id number] - LIPIDOrder Info: [id number] - MG Performed By: #### L 501.4100, L501.4405, L500.2500, L501.9985 #### [facility] [address] [place], [address] Chloride [Moles/Vol] 105 mmol/L Normal 98-107 [facility] Comment on above: Order Comment: Order Date: 12/04/24Order Info: [id number] - CMPOrder Info: [id number] - LIPIDOrder Info: [id number] - MG Performed By: #### L 501.4100, L501.4405, L500.2500, L501.9985 #### [facility] [address] [place], [address] CO2 [Moles/Vol] 29.0 mmol/L Normal 21.0-32.0 [facility] Comment on above: Order Comment: Order Date: 12/04/24Order Info: [id number] - CMPOrder Info: [id number] - LIPIDOrder Info: [id number] - MG Performed By: #### L 501.4100, L501.4405, L500.2500, L501.9985 #### [facility] [address] [place], [address] Creatinine [Mass/Vol] 0.96 mg/dL Normal 0.70-1.30 [facility] Comment on above: Order Comment: Order Date: 12/04/24Order Info: [id number] - CMPOrder Info: [id number] - LIPIDOrder Info: [id number] - MG Result Comment: The validity of the calculated GFR GFRAA in patients over 70 years has not been determined. Clinical correlation is essential. Performed By: #### L 501.4100, L501.4405, L500.2500, L501.9985 #### [facility] [address] [place], [address] EST GFR - AA 97 mL/min Normal >60 [facility] Comment on above: Order Comment: Order Date: 12/04/24Order Info: [id number] - CMPOrder Info: [id number] - LIPIDOrder Info: [id number] - MG Result Comment: Afri can Tristanian GFR Calc Performed By: #### L 501.4100, L501.4405, L500.2500, L501.9985 #### [facility] [address] [place], [address] GAP 5 Normal 5-15 [facility] Comment on above: Order Comment: Order Date: 12/04/24Order Info: [id number] - CMPOrder Info: [id number] - LIPIDOrder Info: [id number] - MG Performed By: #### L 501.4100, L501.4405, L500.2500, L501.9985 #### [facility] [address] [place], [address] GFR/1.73 sq M.predicted among non-blacks MDRD (S/P/Bld) [Vol rate/Area] 80 mL/min/{1.73_m2} Normal >60 [facility] Comment on above: Order Comment: Order Date: 12/04/24Order Info: [id number] - CMPOrder Info: [id number] - LIPIDOrder Info: [id number] - MG Result Comment: Non- GFR Calc Performed By: #### L 501.4100, L501.4405, L500.2500, L501.9985 #### [facility] [address] [place], [address] Globulin (S) [Mass/Vol] 3.7 g/dL Normal 2.2-4.2 [facility] Comment on above: Order Comment: Order Date: 12/04/24Order Info: [id number] - CMPOrder Info: [id number] - LIPIDOrder Info: [id number] - MG Performed By: #### L 501.4100, L501.4405, L500.2500, L501.9985 #### [facility] [address] [place], [address] Glucose [Mass/Vol] 48 mg/dL Low 74-106 [facility] Comment on above: Order Comment: Order Date: 12/04/24Order Info: [id number] - CMPOrder Info: [id number] - LIPIDOrder Info: [id number] - MG Result Comment: Gluc ose result less than 50 mg/dL suggests HYPOGLYCEMIA. Performed By: #### L 501.4100, L501.4405, L500.2500, L501.9985 #### [facility] [address] [place], [address] Potassium [Moles/Vol] 3.9 mmol/L Normal 3.5-5.1 [facility] Comment on above: Order Comment: Order Date: 12/04/24Order Info: [id number] - CMPOrder Info: [id number] - LIPIDOrder Info: [id number] - MG Performed By: #### L 501.4100, L501.4405, L500.2500, L501.9985 #### [facility] [address] [place], [address] Sodium [Moles/Vol] 139 mmol/L Normal 136-145 [facility] Comment on above: Order Comment: Order Date: 12/04/24Order Info: [id number] - CMPOrder Info: [id number] - LIPIDOrder Info: [id number] - MG Performed By: #### L 501.4100, L501.4405, L500.2500, L501.9985 #### [facility] [address] [place], [place], [id number] T PROT 7.4 g/dL Normal 6.4-8.2 [facility] Comment on above: Order Comment: Order Date: 12/04/24Order Info: [id number] - CMPOrder Info: [id number] - LIPIDOrder Info: [id number] - MG Performed By: #### L 501.4100, L501.4405, L500.2500, L501.9985 #### [facility] [address] [place], [place], [address] Urea nitrogen [Mass/Vol] 19 mg/dL High 7-18 [facility] Comment on above: Order Comment: Order Date: 12/04/24Order Info: [id number] - CMPOrder Info: [id number] - LIPIDOrder Info: [id number] - MG Performed By: #### L 501.4100, L501.4405, L500.2500, L501.9985 #### [facility] [address] [place], [place], [address] Eosinophil percentageOrdered By: Ron Cooley on 12-04-2024 Eosinophils/100 WBC (Bld) 1.8 % 0-5 [facility] Erythrocyte distribution wid th ratioOrdered By: Ron Cooley on 12-04-2024 Erythrocyte distribution width (RBC) [Ratio] 13.4 % 11.6-14.6 [facility] Erythrocyte distribution wid th standard deviationOrdered By: Ron Cooley on 12-04-2024 Erythrocyte distribution width (RBC) [Entitic vol] 45.1 fL High 35.1-43.9 [facility] Erythrocyte distribution width (RBC) [Ratio] 45.1 fl High 35.1-43.9 [facility] Estimated glomerular filtrat ion rate (GFR) AmericanOrdered By: Ron Cooley on 12-04-2024 Estimated GFR (MDRD) Amer 97 mL/min >60 [facility] Comment on above: GFR Calc Glomerular filtration rate ( GFR) estimationOrdered By: Ron Cooley on 12-04-2024 Estimated GFR (MDRD) Non-Af Amer 80 mL/min >60 [facility] Comment on above: Non- GFR Calc GFR/1.73 sq M.predicted among non-blacks MDRD (S/P/Bld) [Vol rate/Area] 80 mL/min/{1.73_m2} >60 [facility] Comment on above: Non- GFR Calc Glucose measurementOrdered B y: Ron Cooley on 12-04-2024 Glucose [Mass/Vol] 48 mg/dL Low 74-106 [facility] Comment on above: Glucose result less than 50 mg/dL suggests HYPOGLYCEMIA. Hematocrit Auto (Bld) [Volum e fraction]Ordered By: Ron Cooley on 12-04-2024 Hematocrit (Bld) [Volume fraction] 47.1 % 40-54 [facility] Hemoglobin A1con 12-04-2024 HbA1c (Bld) [Mass fraction] 6.5 % High 3.8-5.6 [facility] Comment on above: Order Comment: Order Date: 12/04/24Order Info: [id number] - A1C Result Comment: Norm al < 5.7 % Prediabetic 5.7 - 6.4 % Diabetic >or= 6.5 % Please note range changes. Performed By: #### L 501.4100, L501.4405, L500.2500, L501.9985 #### [facility] [address] [place] [address]. [place], [address] Hemoglobin A1c percentageOrd ered By: Ron Cooley on 12-04-2024 HbA1c (Bld) [Mass fraction] 6.5 % High 3.8-5.6 [facility] Comment on above: Normal < 5.7 % Predi abetic 5.7 - 6.4 % Diabetic >or= 6.5 % Please note range changes. Hemoglobin measurementOrdere d By: Ron Cooley on 12-04-2024 Hemoglobin (Bld) [Mass/Vol] 15.4 g/dL 13.0-16.5 [facility] High density lipoprotein (HD L) measurementOrdered By: Ron Cooley on 12-04-2024 Cholesterol in HDL [Mass/Vol] 45 mg/dL >40 [facility] Comment on above: The drugs N-Acetylcy steine and Metamizole may falsely depress this assay. Reference Range HDL <40 mg/dL Low HDL Cholesterol HDL >or= 60 mg/dL High HDL Cholesterol Immature granulocytes/100 WB C Auto (Bld)Ordered By: Ron Cooley on 12-04-2024 Immature granulocytes/100 WBC (Bld) 0.600 % 0.0-0.9 [facility] Comment on above: IG% - Immature Granu locytes (promyelocytes, myelocytes and metamyelocytes) > 1% indicates that a LEFT SHIFT is Present. Laboratory - Chemistry and C hemistry - challengeOrdered By: Ron Cooley on 12-04-2024 AST [Catalytic activity/Vol] 13 U/L Low 15-37 [facility] Lipid Profileon 12-04-2024 Cholesterol [Mass/Vol] 192 mg/dL Normal 200 [facility] Comment on above: Order Comment: Order Date: 12/04/24Order Info: [id number] - CMPOrder Info: [id number] - LIPIDOrder Info: [id number] - MG Result Comment: <200 mg/dL Desirable 200-240 mg/dL Borderline >240 mg/dL High Risk Performed By: #### L 501.4100, L501.4405, L500.2500, L501.9985 #### [facility] [address] [place], [place], [address] Cholesterol in HDL [Mass/Vol] 45 mg/dL Normal [facility] Comment on above: Order Comment: Order Date: 12/04/24Order Info: [id number] - CMPOrder Info: [id number] - LIPIDOrder Info: [id number] - MG Result Comment: The drugs N-Acetylcysteine and Metamizole may falsely depress this assay. Reference Range HDL <40 mg/dL Low HDL Cholesterol HDL >or= 60 mg/dL High HDL Cholesterol Performed By: #### L 501.4100, L501.4405, L500.2500, L501.9985 #### [facility] [address] [place], [address] Cholesterol in LDL [Mass/Vol] 116 mg/dL Normal 0-130 [facility] Comment on above: Order Comment: Order Date: 12/04/24Order Info: [id number] - CMPOrder Info: [id number] - LIPIDOrder Info: [id number] - MG Performed By: #### L 501.4100, L501.4405, L500.2500, L501.9985 #### [facility] [address] [place], [address] Cholesterol in VLDL [Mass/Vol] 31 mg/dL Normal 5-40 [facility] Comment on above: Order Comment: Order Date: 12/04/24Order Info: [id number] - CMPOrder Info: [id number] - LIPIDOrder Info: - MG Performed By: #### L 501.4100, L501.4405, L500.2500, L501.9985 #### [facility] [address] [place], [address] Triglyceride [Mass/Vol] 153 mg/dL Normal [facility] Comment on above: Order Comment: Order Date: 12/04/24Order Info: [id number] - CMPOrder Info: [id number] - LIPIDOrder Info: [id number] - MG Result Comment: The drugs N-Acetylcysteine and Metamizole may falsely depress this assay. Serum Triglycerides Reference Interval Normal <150 mg/dL Borderline high 150 - 199 mg/dL High 200 - 499 mg/dL Very High > or = 500 mg/dL Performed By: #### L 501.4100, L501.4405, L500.2500, L501.9985 #### [facility] [address] [place], [address] Low density lipoprotein (LDL ) cholesterol measurementOrdered By: Ron Cooley on 12-04-2024 Cholesterol in LDL [Mass/Vol] 116 mg/dL 0-130 [facility] Lymphocytes Auto (Unsp spec) [#/Vol]Ordered By: Ron Cooley on 12-04-2024 Lymphocytes (Bld) [#/Vol] 3.42 10*3/uL 0.83-4.5 1 [facility] Lymphocytes/100 WBC Auto (Un sp spec)Ordered By: Ron Cooley on 12-04-2024 Lymphocytes/100 WBC (Bld) 31.5 % 19-41 [facility] MCV (mean corpuscular volume ) determinationOrdered By: Ron Cooley on 12-04-2024 MCV (RBC) [Entitic vol] 92.9 fL 80-94 [facility] Magnesiumon 12-04-2024 Magnesium [Mass/Vol] 2.0 mg/dL Normal 1.6-2.6 [facility] Comment on above: Order Comment: Order Date: 12/04/24Order Info: [id number] - CMPOrder Info: [id number] - LIPIDOrder Info: [id number] - MG Performed By: #### L 501.4100, L501.4405, L500.2500, L501.9985 #### [facility] [address] [place] [address], [address] Magnesium measurementOrdered By: Ron Cooley on 12-04-2024 Magnesium [Mass/Vol] 2.0 mg/dL 1.6-2.6 [facility] Mean corpuscular hemoglobin (MCH) determinationOrdered By: Ron Cooley on 12-04-2024 MCH (RBC) [Entitic mass] 30.4 pg 27.0-32.0 [facility] Mean corpuscular hemoglobin concentration (MCHC) determinationOrdered By: Ron Cooley on 12-04-2024 MCHC (RBC) [Mass/Vol] 32.7 g/dL 32-36 [facility] Mean platelet volume determi nationOrdered By: Ron Cooley on 12-04-2024 Platelet mean volume (Bld) [Entitic vol] 10.8 fL 6.2-12.0 [facility] Monocyte percentageOrdered B y: Ron Cooley on 12-04-2024 Monocytes/100 WBC (Bld) 10.8 % High 0-10 [facility] Neutrophil percentageOrdered By: Ron Cooley on 12-04-2024 Neutrophils/100 WBC (Bld) 54.1 % 47-70 [facility] Nucleated red blood cell per centageOrdered By: Ron Cooley on 12-04-2024 Nucleated RBC/100 WBC (Bld) [Ratio] 0 % 0-5 [facility] Platelet countOrdered By: Rimma Cooley on 12-04-2024 Platelets (Bld) [#/Vol] 281 10*3/uL 150-450 [facility] Potassium measurementOrdered By: Ron Cooley on 12-04-2024 Potassium [Moles/Vol] 3.9 mmol/L 3.5-5.1 [facility] RBC Auto (Bld) [#/Vol]Ordere d By: Ron Cooley on 12-04-2024 RBC (Bld) [#/Vol] 5.07 10*6/uL 4.6-6.2 [facility] Serum anion gap measurementO rdered By: Ron Cooley on 12-04-2024 Anion gap [Moles/Vol] 5 mmol/L 5-15 [facility] Serum globulin measurementOr dered By: Ron Cooley on 12-04-2024 Globulin (S) [Mass/Vol] 3.7 g/dL 2.2-4.2 [facility] Serum or plasma alanine max otransferase (ALT) measurementOrdered By: Ron Cooley on 12-04-2024 ALT [Catalytic activity/Vol] 11 U/L Low 16-61 [facility] Serum or plasma albumin walt urement (mass/volume)Ordered By: Ron Cooley on 12-04-2024 Albumin [Mass/Vol] 3.7 g/dL 3.2-5.0 [facility] Serum or plasma alkaline sarah sphatase measurementOrdered By: Ron Cooley on 12-04-2024 ALP [Catalytic activity/Vol] 91 U/L 45-117 [facility] Serum or plasma calcium walt urement (mass/volume)Ordered By: Ron Cooley on 12-04-2024 Calcium [Mass/Vol] 9.4 mg/dL 8.5-10.1 [facility] Serum or plasma cholesterol measurement (mass/volume)Ordered By: Ron Cooley on 12-04-2024 Cholesterol [Mass/Vol] 192 mg/dL <200 [facility] Comment on above: <200 mg/dL Desirable 200-240 mg/dL Borderline >240 mg/dL High Risk Serum or plasma creatinine m easurement (mass/volume)Ordered By: Ron Cooley on 12-04-2024 Creatinine [Mass/Vol] 0.96 mg/dL 0.70-1.30 [facility] Comment on above: The validity of the calculated GFR & GFRAA in patients over 70 years has not been determined. Clinical correlation is essential. Serum or plasma urea nitroge n measurement (mass/volume)Ordered By: Ron Cooley on 12-04-2024 Urea nitrogen [Mass/Vol] 19 mg/dL High 7-18 [facility] Sodium levelOrdered By: Ron Cooley on 12-04-2024 Sodium [Moles/Vol] 139 mmol/L 136-145 [facility] Total proteinOrdered By: Kwabena Cooley on 12-04-2024 Protein [Mass/Vol] 7.4 g/dL 6.4-8.2 [facility] Triglycerides measurementOrd ered By: Ron Cooley on 12-04-2024 Triglyceride [Mass/Vol] 153 mg/dL <199 [facility] Comment on above: The drugs N-Acetylcy steine and Metamizole may falsely depress this assay.Serum Triglycerides Reference Interval Normal <150 mg/dL Borderline high 150 - 199 mg/dL High 200 - 499 mg/dL Very High > or = 500 mg/dL Very low density lipoprotein (VLDL) cholesterol measurementOrdered By: Ron Cooley on 12-04-2024 Very low density lipoprotein (VLDL) cholesterol measurement 31 mg/dL 5-40 [facility] VLDL Cholesterol 31 mg/dL 5-40 [facility] Vitamin D,25 Hydroxyon 12-04 Vitamin D 25-OH 47.5 ng/mL Normal [facility] Comment on above: Order Comment: Order Date: 12/04/24Order Info: [id number] - [id number] Result Comment: Lisa min D 25(OH) Status Range Deficiency <20 ng/mL (50nmol/L) Insufficiency 20 - 30 ng/mL (50 - 75 nmol/L) Sufficiency 30 - 100 ng/mL (75 - 250 nmol/L) Toxicity >100 ng/mL (>250 nmol/L) Performed By: #### L 501.4100, L501.4405, L500.2500, L501.9985 #### [facility] [address] [place], [place], [address] White blood cell (WBC) count Ordered By: Ron Cooley on 12-04-2024 WBC (Bld) [#/Vol] 10.9 10*3/uL 4.4-11.0 [facility] Chest PA and Lateralon 12-02 Chest PA and Lateral [facility] [address] [place] [address] Chest PA and Lateral MR#: [id number] Acct: [id number] Name: KEVIN GRIFFITH Rep #: [id number] : 1945 M 79 From: José Luis Nicolas PCP: Dr. Ron Cooley MD Status: [facility] CLI Study: Chest PA and Lateral Date of Exam: 12/02/24 Exam# [id number] Ordering Dr: [place] [id number] INDICATION: HYPOXEMIA EXAMINATION/TECHNIQUE: X-RAY - XR Chest [...] Signed: José Luis Whalen MD at 10:04 EST , CC: Dr. Ron Cooley MD; Dr. Jose Perez MD Ell Tutor: Signed Normal [facility] AST(SGOT)on 10-28-2024 AST [Catalytic activity/Vol] 9 U/L Low 15-37 [facility] Comment on above: Performed By: #### L 501.4100, L501.4405, L500.2500, L501.9985 #### [facility] [address] [place], [address] Alanine Aminotransferas (SGP T)on 10-28-2024 ALT [Catalytic activity/Vol] 8 U/L Low 16-61 [facility] Comment on above: Performed By: #### L 501.4100, L501.4405, L500.2500, L501.9985 #### [facility] [address] [place], [address] Basic Metabolic Profile (BMP )on 10-28-2024 BUN/CRE 26.5 RATIO High 10-20 [facility] Comment on above: Performed By: #### L 501.4100, L501.4405, L500.2500, L501.9985 #### [facility] [address] [place], [address] CA,Total 9.3 mg/dL Normal 8.5-10.1 [facility] Comment on above: Performed By: #### L 501.4100, L501.4405, L500.2500, L501.9985 #### [facility] [address] [place], [address] Chloride [Moles/Vol] 105 mmol/L Normal 98-107 [facility] Comment on above: Performed By: #### L 501.4100, L501.4405, L500.2500, L501.9985 #### [facility] [address] [place], [address] CO2 [Moles/Vol] 31.0 mmol/L Normal 21.0-32.0 [facility] Comment on above: Performed By: #### L 501.4100, L501.4405, L500.2500, L501.9985 #### [facility] [address] [place], [address] Creatinine [Mass/Vol] 0.91 mg/dL Normal 0.70-1.30 [facility] Comment on above: Result Comment: The validity of the calculated GFR GFRAA in patients over 70 years has not been determined. Clinical correlation is essential. Performed By: #### L 501.4100, L501.4405, L500.2500, L501.9985 #### [facility] [address] [place], [address] EST GFR - AA 103 mL/min Normal >60 [facility] Comment on above: Result Comment: Afri can Tristanian GFR Calc Performed By: #### L 501.4100, L501.4405, L500.2500, L501.9985 #### [facility] [address] [place], [address] GAP 5 Normal 5-15 [facility] Comment on above: Performed By: #### L 501.4100, L501.4405, L500.2500, L501.9985 #### [facility] [address] [place], [address] GFR/1.73 sq M.predicted among non-blacks MDRD (S/P/Bld) [Vol rate/Area] 86 mL/min/{1.73_m2} Normal >60 [facility] Comment on above: Result Comment: Non- GFR Calc Performed By: #### L 501.4100, L501.4405, L500.2500, L501.9985 #### [facility] [address] [place], [address] Glucose [Mass/Vol] 111 mg/dL High 74-106 [facility] Comment on above: Result Comment: Fast ing Glucose result from 100 to 125 mg/dL suggests IMPAIRED HOMEOSTASIS per A.D.A. criteria. Performed By: #### L 501.4100, L501.4405, L500.2500, L501.9985 #### [facility] [address] [place], [address] Potassium [Moles/Vol] 3.4 mmol/L Low 3.5-5.1 [facility] Comment on above: Performed By: #### L 501.4100, L501.4405, L500.2500, L501.9985 #### [facility] [address] [place], [address] Sodium [Moles/Vol] 142 mmol/L Normal 136-145 [facility] Comment on above: Performed By: #### L 501.4100, L501.4405, L500.2500, L501.9985 #### [facility] [address] [place], [address] Urea nitrogen [Mass/Vol] 24 mg/dL High 7-18 [facility] Comment on above: Performed By: #### L 501.4100, L501.4405, L500.2500, L501.9985 #### [facility] [address] [place], [address] Blood urea nitrogen (BUN)/cr eatinine ratioOrdered By: Natasha Gregory on 10-28-2024 Urea nitrogen/Creatinine [Mass ratio] 26.5 mg/mg High 10-20 [facility] Carbon dioxide measurementOr dered By: Natasha Gregory on 10-28-2024 CO2 [Moles/Vol] 31.0 mmol/L 21.0-32.0 [facility] Chloride measurementOrdered By: Natasha Gregory on 10-28-2024 Chloride [Moles/Vol] 105 mmol/L 98-107 [facility] Estimated glomerular filtrat ion rate (GFR) AmericanOrdered By: Natasha Gregory on 10-28-2024 Estimated GFR (MDRD) Amer 103 mL/min >60 [facility] Comment on above: GFR Calc Glomerular filtration rate ( GFR) estimationOrdered By: Natasha Gregory on 10-28-2024 Estimated GFR (MDRD) Non-Af Amer 86 mL/min >60 [facility] Comment on above: Non- GFR Calc Glucose measurementOrdered B y: Natasha Gregory on 10-28-2024 Glucose [Mass/Vol] 111 mg/dL High 74-106 [facility] Comment on above: Fasting Glucose resu lt from 100 to 125 mg/dL suggests IMPAIRED HOMEOSTASIS per A.D.A. criteria. Hemoglobin A1con 10-28-2024 HbA1c (Bld) [Mass fraction] 6.4 % High 3.8-5.6 [facility] Comment on above: Result Comment: Norm al < 5.7 % Prediabetic 5.7 - 6.4 % Diabetic >or= 6.5 % Please note range changes. Performed By: #### L 501.4100, L501.4405, L500.2500, L501.9985 #### [facility] [address] [place] [address]. [place], [address] Hemoglobin A1c percentageOrd ered By: Natasha Gregory on 10-28-2024 HbA1c (Bld) [Mass fraction] 6.4 % High 3.8-5.6 [facility] Comment on above: Normal < 5.7 % Predi abetic 5.7 - 6.4 % Diabetic >or= 6.5 % Please note range changes. Laboratory - Chemistry and C hemistry - challengeOrdered By: Natasha Gregory on 10-28-2024 AST [Catalytic activity/Vol] 9 U/L Low 15-37 [facility] Potassium measurementOrdered By: Natasha Gregory on 10-28-2024 Potassium [Moles/Vol] 3.4 mmol/L Low 3.5-5.1 [facility] Serum anion gap measurementO rdered By: Natasha Gregory on 10-28-2024 Anion gap [Moles/Vol] 5 mmol/L 5-15 [facility] Serum or plasma alanine max otransferase (ALT) measurementOrdered By: Natasha Gregory on 10-28-2024 ALT [Catalytic activity/Vol] 8 U/L Low 16-61 [facility] Serum or plasma calcium walt urement (mass/volume)Ordered By: Natasha Gregory on 10-28-2024 Calcium [Mass/Vol] 9.3 mg/dL 8.5-10.1 [facility] Serum or plasma creatinine m easurement (mass/volume)Ordered By: Natasha Gregory on 10-28-2024 Creatinine [Mass/Vol] 0.91 mg/dL 0.70-1.30 [facility] Comment on above: The validity of the calculated GFR & GFRAA in patients over 70 years has not been determined. Clinical correlation is essential. Serum or plasma urea nitroge n measurement (mass/volume)Ordered By: Natasha Gregory on 10-28-2024 Urea nitrogen [Mass/Vol] 24 mg/dL High 7-18 [facility] Sodium levelOrdered By: Josefina Gregory on 10-28-2024 Sodium [Moles/Vol] 142 mmol/L 136-145 [facility] Emergency Department Summary on 10-12-2024 Emergency Department Summary [facility] Medical Records Department [address] [place] [address] Emergency Department Summary 10/12/24 MR#: [id number] Acct: [id number] Name: KEVIN GRIFFITH Rep #: [id number] : 1945 79 From: Osman Farooq MD [...] has not been coughing up any blood. [facility] Medical History Parkinson's disease Right bundle branch [...] Reports m (more content not included)... Normal [facility] Ribs Uni Min 3V w/PA Cheston 10-12-2024 Ribs Uni Min 3V w/PA Chest [facility] [address] [place] [address] Ribs Uni Min 3V w/PA Chest MR#: [id number] Acct: [id number] Name: KEVIN GRIFFITH Rep #: [id number] : 1945 M 79 From: Osman Ramos MD PCP: Dr. Ron Cooley MD Status: REG ER Study: Ribs Uni Min 3V w/PA Chest Date of Exam: 10/12 Exam# [id number] Ordering [place]: [place] [id number] STUDY: X-RAY - UNILATERAL RIBS ( LEFT [...] Signed: Osman Ramos MD at 12:36 EST Reading Location ID and State: [address] [place] [address] , Service support , CC: Dr. Osman Farooq MD; Dr. Ron Cooley MD Ell Tutor: Signed Normal [facility] Chest PA and Lateralon 09-27 Chest PA and Lateral [facility] Imaging Services [address] [place], [place] [address] Chest PA and Lateral MR#: [id number] Acct: [id number] Name: KEVIN GRIFFITH Rep #: [id number] : 1945 M 79 From: Humberto Perez MD PCP: Dr. Ron Cooley MD Status: REG CLI Study: Chest PA and Lateral Date of Exam: 09/27/24 Exam# [id number] Ordering Dr: [place] [id number] STUDY: X-RAY CHEST REASON FOR EXAM: Male, [...] Signed: Humberto Perez MD at 15:52 EST , CC: Dr. Ron Cooley MD; Dr. Imer Gee MD Ell Tutor: Signed Normal [facility] Modified Barium Swallow Stud yon 09-20-2024 Modified Barium Swallow Study [facility] Speech Pathology [address] [place] [address] Modified Barium Swallow Study MR#: [id number] Acct: [id number] Name: KEVIN GRIFFITH Rep #: [id number] : 1945 79 From: Chayito Barber Modified [...] swallow: Result: 1= does not enter airway [place] Thick Liquid via small single sip: cup: [...] a teaspoon or when prompted by the CHIMNEY REPAIRER to take smaller sips. Poor bolus control and delayed pharyn (more content not included)... Normal [facility] MARIAH + Protein Elect, Serumon 09-05-2024 Albumin [Mass/Vol] 3.9 g/dL Normal 2.9-4.4 [facility] Comment on above: Order Comment: N Performed By: #### L 501.4100, L501.4405, L500.2500, L501.9985 #### [facility] [address] [place], [address] Albumin/Globulin [Mass ratio] 1.4 {ratio} Normal 0.7-1.7 [facility] Comment on above: Order Comment: N Performed By: #### L 501.4100, L501.4405, L500.2500, L501.9985 #### [facility] [address] [place], [address] PKQDE-7-COAX 0.2 g/dL Normal 0.0-0.4 [facility] Comment on above: Order Comment: N Performed By: #### L 501.4100, L501.4405, L500.2500, L501.9985 #### [facility] [address] [place], [address] ZCVDO-6-DYTT 0.8 g/dL Normal 0.4-1.0 [facility] Comment on above: Order Comment: N Performed By: #### L 501.4100, L501.4405, L500.2500, L501.9985 #### [facility] [address] [place], [address] BETA GLOBULIN 0.9 g/dL Normal 0.7-1.3 [facility] Comment on above: Order Comment: N Performed By: #### L 501.4100, L501.4405, L500.2500, L501.9985 #### [facility] [address] [place], [address] GAMMA GLOBULIN 0.9 g/dL Normal 0.4-1.8 [facility] Comment on above: Order Comment: N Performed By: #### L 501.4100, L501.4405, L500.2500, L501.9985 #### [facility] [address] [place], [address] Globulin (S) [Mass/Vol] 2.8 g/dL Normal 2.2-3.9 [facility] Comment on above: Order Comment: N Performed By: #### L 501.4100, L501.4405, L500.2500, L501.9985 #### [facility] [address] [place], [address] MARIAH RESULT,S Comment Normal . [facility] Comment on above: Order Comment: N Result Comment: No m onoclonality detected. Performed By: #### L 501.4100, L501.4405, L500.2500, L501.9985 #### [facility] [address] [place], [address] IMMUNOGLOB A QN 171 mg/dL Normal 61-437 [facility] Comment on above: Order Comment: N Performed By: #### L 501.4100, L501.4405, L500.2500, L501.9985 #### [facility] [address] [place], [address] IMMUNOGLOB G QN 946 mg/dL Normal 603-1613 [facility] Comment on above: Order Comment: N Performed By: #### L 501.4100, L501.4405, L500.2500, L501.9985 #### [facility] [address] [place], [address] IMMUNOGLOB M QN 100 mg/dL Normal 15-143 [facility] Comment on above: Order Comment: N Performed By: #### L 501.4100, L501.4405, L500.2500, L501.9985 #### [facility] [address] [place], [address] M-Jose Antonio Not Observed Normal Not Observed [facility] Comment on above: Order Comment: N Performed By: #### L 501.4100, L501.4405, L500.2500, L501.9985 #### [facility] [address] [place], [address] NOTE: Comment Normal . [facility] Comment on above: Order Comment: N Result Comment: Prot ein electrophoresis scan will follow via computer, mail, or senior product analyst delivery. Performed By: #### L 501.4100, L501.4405, L500.2500, L501.9985 #### [facility] [address] [place], [address] Protein [Mass/Vol] 6.7 g/dL Normal 6.0-8.5 [facility] Comment on above: Order Comment: N Performed By: #### L 501.4100, L501.4405, L500.2500, L501.9985 #### [facility] [address] [place], [address] Immunofixation Urineon 09-05 MARIAH Urine Comment Normal . [facility] Comment on above: Order Comment: N Result Comment: No m onoclonality detected. Performed at: [address] [id number] Hole Digger: Vj Garcia PhD, Phone: [phone] Performed By: #### L 501.4100, L501.4405, L500.2500, L501.9985 #### [facility] [address] [place], [address] Neurology Visit Reporton Neurology Visit Report [facility] [address] [place], [place] [address] OFFICE VISIT Date of Service: 09/02/24 MR#: [id number] Acct: [id number] Name: KEVIN GRIFFITH Rep #: [id number] : 1945 Provider: Dr. Vick beltran MD Age/Sex: 79/M Location: [facility] [place]. 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 Normal [facility] Ankle min 3 Viewson 08-07-20 Ankle min 3 Views [facility] Imaging Services [address] [place] [address] Ankle min 3 Views MR#: [id number] Acct: [id number] Name: KEVIN GRIFFITH Rep #: [id number] : 1945 M 79 From: Humberto Perez MD PCP: Dr. Ron Cooley MD Status: REG CLI Study: Ankle min 3 Views Date of Exam: 08/07/24 Exam# [id number] Ordering Dr: [place] [id number] STUDY: X-RAY - LEFT ANKLE REASON FOR [...] Signed: Humberto Perez MD at 15:36 EDT , CC: Dr. Ron Cooley MD Ell Tutor: Signed Normal [facility] Forearm 2 Viewson 08-07-2024 Forearm 2 Views [facility] Services [address] [place] [address] Forearm 2 Views MR#: [id number] Acct: [id number] Name: KEVIN RGIFFITH Rep #: [id number] : 1945 M 79 From: Humberto Perez MD PCP: Dr. Ron Cooley MD Status: REG CLI Study: Forearm 2 Views Date of Exam: 08/07/24 Exam# [id number] Ordering [place]: [place] [id number] STUDY: X-RAY - LEFT RADIUS AND ULNA [...] 15:33 EDT Reading Location ID and State: [facility] / [place] , Service support , CC: Dr. Ron Cooley MD Ell Tutor: Signed Normal [facility] Wrist min 3 Viewson 08-07-20 24 Wrist min 3 Views [facility] Imaging Services [address] [place], [place] [address] Wrist min 3 Views MR#: [id number] Acct: [id number] Name: KEVIN GRIFFITH Rep #: [id number] : 1945 M 79 From: Humberto Perez MD PCP: Dr. Ron Cooley MD Status: REG CLI Study: Wrist min 3 Views Date of Exam: 08/07/24 Exam# [id number] Ordering [place]: [place] [id number] STUDY: X-RAY - LEFT WRIST REASON FOR [...] Signed: Humberto Perez MD at 15:38 EDT Reading Location ID and State: [address] [place] [address] , Service support , CC: Dr. Ron Cooley MD Ell Tutor: Signed Normal [facility] AST(SGOT)on 06-27-2024 AST [Catalytic activity/Vol] 10 U/L Low 15-37 [facility] Comment on above: Performed By: #### L 501.4100, L501.4405, L500.2500, L501.9985 #### [facility] [address] [place], [place], [address] Alanine Aminotransferas (SGP T)on 06-27-2024 ALT [Catalytic activity/Vol] 8 U/L Low 16-61 [facility] Comment on above: Performed By: #### L 501.4100, L501.4405, L500.2500, L501.9985 #### [facility] [address] [place], [address] Basic Metabolic Profile (BMP )on 06-27-2024 BUN/CRE 17.4 RATIO Normal 10-20 [facility] Comment on above: Performed By: #### L 501.4100, L501.4405, L500.2500, L501.9985 #### [facility] [address] [place], [address] CA,Total 8.8 mg/dL Normal 8.5-10.1 [facility] Comment on above: Performed By: #### L 501.4100, L501.4405, L500.2500, L501.9985 #### [facility] [address] [place], [address] Chloride [Moles/Vol] 109 mmol/L High 98-107 [facility] Comment on above: Performed By: #### L 501.4100, L501.4405, L500.2500, L501.9985 #### [facility] [address] [place], [address] CO2 [Moles/Vol] 28.0 mmol/L Normal 21.0-32.0 [facility] Comment on above: Performed By: #### L 501.4100, L501.4405, L500.2500, L501.9985 #### [facility] [address] [place], [address] Creatinine [Mass/Vol] 0.92 mg/dL Normal 0.70-1.30 [facility] Comment on above: Result Comment: The validity of the calculated GFR GFRAA in patients over 70 years has not been determined. Clinical correlation is essential. Performed By: #### L 501.4100, L501.4405, L500.2500, L501.9985 #### [facility] [address] [place], [address] EST GFR - AA 102 mL/min Normal >60 [facility] Comment on above: Result Comment: Afri can Tristanian GFR Calc Performed By: #### L 501.4100, L501.4405, L500.2500, L501.9985 #### [facility] [address] [place], [address] GAP 6 Normal 5-15 [facility] Comment on above: Performed By: #### L 501.4100, L501.4405, L500.2500, L501.9985 #### [facility] [address] [place], [address] GFR/1.73 sq M.predicted among non-blacks MDRD (S/P/Bld) [Vol rate/Area] 84 mL/min/{1.73_m2} Normal >60 [facility] Comment on above: Result Comment: Non- GFR Calc Performed By: #### L 501.4100, L501.4405, L500.2500, L501.9985 #### [facility] [address] [place], [address] Glucose [Mass/Vol] 47 mg/dL Low 74-106 [facility] Comment on above: Result Comment: Gluc ose result less than 50 mg/dL suggests HYPOGLYCEMIA. Performed By: #### L 501.4100, L501.4405, L500.2500, L501.9985 #### [facility] [address] [place], [address] Potassium [Moles/Vol] 3.5 mmol/L Normal 3.5-5.1 [facility] Comment on above: Performed By: #### L 501.4100, L501.4405, L500.2500, L501.9985 #### [facility] [address] [place], [address] Sodium [Moles/Vol] 143 mmol/L Normal 136-145 [facility] Comment on above: Performed By: #### L 501.4100, L501.4405, L500.2500, L501.9985 #### [facility] [address] [place], [address] Urea nitrogen [Mass/Vol] 16 mg/dL Normal 7-18 [facility] Comment on above: Performed By: #### L 501.4100, L501.4405, L500.2500, L501.9985 #### [facility] [address] [place], [address] Cardiology Visit Reporton Cardiology Visit Report [facility] [address] [place] [address] OFFICE VISIT Date of Service: 06/27/24 MR#: [id number] Acct: [id number] Name: KEVIN GRIFFITH Rep #: [id number] : 1945 Provider: Dr. Vladimir Sears MD Age/Sex: 78/M Location: [facility] [place] Status: Signed HPI HPI History of Present Illness Details: KEVIN GRIFFITH, [...] Monitor Intake Visit Reasons: 1 Y FU Spiritual Minister Required: No Accompanied by: Self Is patient [...] you fallen in the past year?: Yes PFSH Medical History Parkinson's disease Right bundle branch [...] well nou (more content not included)... Normal [facility] Hemoglobin A1con 06-27-2024 HbA1c (Bld) [Mass fraction] 6.4 % High 3.8-5.6 [facility] Comment on above: Result Comment: Norm al < 5.7 % Prediabetic 5.7 - 6.4 % Diabetic >or= 6.5 % Please note range changes. Performed By: #### L 501.4100, L501.4405, L500.2500, L501.9915 #### [facility] [address] [place], [address] Lipid Profileon 06-27-2024 Cholesterol [Mass/Vol] 105 mg/dL Normal 200 [facility] Comment on above: Result Comment: <200 mg/dL Desirable 200-240 mg/dL Borderline >240 mg/dL High Risk Performed By: #### L 501.4100, L501.4405, L500.2500, L501.9985 #### [facility] [address] [place], [address] Cholesterol in HDL [Mass/Vol] 45 mg/dL Normal [facility] Comment on above: Result Comment: The drugs N-Acetylcysteine and Metamizole may falsely depress this assay. Reference Range HDL <40 mg/dL Low HDL Cholesterol HDL >or= 60 mg/dL High HDL Cholesterol Performed By: #### L 501.4100, L501.4405, L500.2500, L501.9985 #### [facility] [address] [place], [address] Cholesterol in LDL [Mass/Vol] 40 mg/dL Normal 0-130 [facility] Comment on above: Performed By: #### L 501.4100, L501.4405, L500.2500, L501.9985 #### [facility] [address] [place], [address] Cholesterol in VLDL [Mass/Vol] 20 mg/dL Normal 5-40 [facility] Comment on above: Performed By: #### L 501.4100, L501.4405, L500.2500, L501.9985 #### [facility] [address] [place], [address] Triglyceride [Mass/Vol] 99 mg/dL Normal [facility] Comment on above: Result Comment: The drugs N-Acetylcysteine and Metamizole may falsely depress this assay. Serum Triglycerides Reference Interval Normal <150 mg/dL Borderline high 150 - 199 mg/dL High 200 - 499 mg/dL Very High > or = 500 mg/dL Performed By: #### L 501.4100, L501.4405, L500.2500, L501.9985 #### [facility] [address] [place], [address] Microalb:Creat Ratio,Random URon 06-27-2024 MALB:CRE Normal <30 mg/g CRE [facility] Comment on above: Result Comment: VIKTOR ENT COULD NOT GIVE SAMPLE Performed By: #### L 501.4100, L501.4405, L500.2500, L501.9985 #### [facility] [address] [place], [address] MICROALBUMIN,UR Normal NO RANGE EST. [facility] Comment on above: Result Comment: VIKTOR ENT COULD NOT GIVE SAMPLE Performed By: #### L 501.4100, L501.4405, L500.2500, L501.9985 #### [facility] [address] [place], [address] UR CREAT Normal NO RANGE EST. [facility] Comment on above: Result Comment: VIKTOR ENT COULD NOT GIVE SAMPLE Performed By: #### L 501.4100, L501.4405, L500.2500, L501.9985 #### [facility] [address] [place], [address] Thyroid Stim Hormone (TSH)on 06-27-2024 TSH 1.99 uIU/mL Normal 0.358-3.74 [facility] Comment on above: Performed By: #### L 501.4100, L501.4405, L500.2500, L501.9985 #### [facility] [address] [place], [address] PSA,Total- Diagnosticon 05-21 PSA, DIAGNOSTIC 0.50 ng/mL Normal 0.0-4.0 [facility] Comment on above: Result Comment: This test was performed using the TPSA assay method for the DecaWave system. Values obtained with different assay methods cannot be used interchangably. When changing PSA assays in the course of monitoring a patient, additional sequential testing should be carried out to confirm baseline values. Performed By: #### L 501.4100, L501.4405, L500.2500, L501.9985 #### [facility] [address] [place], [address] Basophil percentageOrdered B y: Vick Santo on 03-25-2024 Bilirubin [Mass/Vol] 0.70 mg/dL 0.20-1.00 [facility] Comment on above: For patients on eltr ombopag therapy, use of Dimension [place] TBIL is not recommended. Chloride [Moles/Vol] 104 mmol/L 98-107 [facility] Glucose [Mass/Vol] 260 mg/dL 74-106 [facility] Comment on above: Glucose result great er than or equal to 200 mg/dLsuggests DIABETES MELLITUS per A.D.A. criteria. Potassium [Moles/Vol] 3.9 mmol/L 3.5-5.1 [facility] Protein [Mass/Vol] 6.8 g/dL 6.4-8.2 [facility] Sodium [Moles/Vol] 138 mmol/L 136-145 [facility] Laboratory - Chemistry and C hemistry - challengeOrdered By: Vick Santo on 03-25-2024 Albumin/Globulin [Mass ratio] 1.1 {ratio} 0.9-2.4 [facility] ALP [Catalytic activity/Vol] 62 U/L 45-117 [facility] ALT [Catalytic activity/Vol] 13 U/L 16-61 [facility] CO2 [Moles/Vol] 28.0 mmol/L 21.0-32.0 [facility] Globulin (S) [Mass/Vol] 3.3 g/dL 2.2-4.2 [facility] Urea nitrogen/Creatinine [Mass ratio] 23.8 mg/mg 10-20 [facility] No Panel InformationOrdered By: Vick Santo on 03-25-2024 Estimated GFR (MDRD) Amer 92 mL/min >60 [facility] Comment on above: GFR Calc Estimated GFR (MDRD) Non-Af Amer 76 mL/min >60 [facility] Comment on above: Non- GFR Calc Serum or plasma calcium walt urement (mass/volume)Ordered By: Vick Santo on 03-25-2024 Calcium [Mass/Vol] 8.9 mg/dL 8.5-10.1 [facility] Serum or plasma creatinine m easurement (mass/volume)Ordered By: Vick Santo on 03-25-2024 Creatinine [Mass/Vol] 1.01 mg/dL 0.70-1.30 [facility] Comment on above: The validity of the calculated GFR & GFRAA in patients over 70 years has not been determined. Clinical correlation is essential. Serum or plasma urea nitroge n measurement (mass/volume)Ordered By: Vick Santo on 03-25-2024 Urea nitrogen [Mass/Vol] 24 mg/dL 7-18 [facility] Thin prep Papanicolaou smear with manual screeningOrdered By: Vick Santo on 03-25-2024 Thin prep Papanicolaou smear with manual screening 3.5 g/dL 3.2-5.0 [facility] Thin prep Papanicolaou smear with manual screening 11 U/L 15-37 [facility] Thin prep Papanicolaou smear with manual screening 6 5-15 [facility] Whole blood hemoglobin A1c/t otal hemoglobin ratio (mass fraction)Ordered By: Vick Santo on 03-25-2024 HbA1c (Bld) [Mass fraction] 6.1 % 3.8-5.6 [facility] Comment on above: Normal < 5.7 % Predi abetic 5.7 - 6.4 % Diabetic >or= 6.5 % Please note range changes. Basophil percentageOrdered B y: Ron Cooley on 02-27-2024 Chloride [Moles/Vol] 106 mmol/L 98-107 [facility] Glucose [Mass/Vol] 94 mg/dL 74-106 [facility] Potassium [Moles/Vol] 3.9 mmol/L 3.5-5.1 [facility] Sodium [Moles/Vol] 141 mmol/L 136-145 [facility] Laboratory - Chemistry and C hemistry - challengeOrdered By: Ron Cooley on 04-09-2024 ALT [Catalytic activity/Vol] 14 U/L 16-61 [facility] CO2 [Moles/Vol] 28.0 mmol/L 21.0-32.0 [facility] Urea nitrogen/Creatinine [Mass ratio] 22.1 mg/mg 10-20 [facility] No Panel InformationOrdered By: Ron Cooley on 02-27-2024 Estimated GFR (MDRD) Amer 104 mL/min >60 [facility] Comment on above: GFR Calc Estimated GFR (MDRD) Non-Af Amer 86 mL/min >60 [facility] Comment on above: Non- GFR Calc Serum or plasma calcium walt urement (mass/volume)Ordered By: Ron Cooley on 02-27-2024 Calcium [Mass/Vol] 9.3 mg/dL 8.5-10.1 [facility] Serum or plasma creatinine m easurement (mass/volume)Ordered By: Ron Cooley on 02-27-2024 Creatinine [Mass/Vol] 0.90 mg/dL 0.70-1.30 [facility] Comment on above: The validity of the calculated GFR & GFRAA in patients over 70 years has not been determined. Clinical correlation is essential. Serum or plasma urea nitroge n measurement (mass/volume)Ordered By: Ron Cooley on 02-27-2024 Urea nitrogen [Mass/Vol] 20 mg/dL 7-18 [facility] Thin prep Papanicolaou smear with manual screeningOrdered By: Ron Cooley on 02-27-2024 Thin prep Papanicolaou smear with manual screening 15 U/L 15-37 [facility] Thin prep Papanicolaou smear with manual screening 7 5-15 [facility] Whole blood hemoglobin A1c/t otal hemoglobin ratio (mass fraction)Ordered By: Ron Cooley on 02-27-2024 HbA1c (Bld) [Mass fraction] 6.1 % 3.8-5.6 [facility] Comment on above: Normal < 5.7 % Predi abetic 5.7 - 6.4 % Diabetic >or= 6.5 % Please note range changes. Absolute lymphocyte countOrd ered By: Ron Cooley on 12-15-2023 Lymphocytes Auto (Unsp spec) [#/Vol] 3.13 10*3/uL 0.83-4.51 [facility] Automated lymphocyte count a s percentage of total leukocytesOrdered By: Ron Cooley on 12-15-2023 Lymphocytes/100 WBC Auto (Unsp spec) 38.1 % 19-41 [facility] Basophil percentageOrdered B y: Ron Cooley on 12-15-2023 Basophils/100 WBC (Bld) 0.7 % 0-1 [facility] Bilirubin [Mass/Vol] 0.80 mg/dL 0.20-1.00 [facility] Comment on above: For patients on eltr ombopag therapy, use of Dimension [place] TBIL is not recommended. Chloride [Moles/Vol] 107 mmol/L 98-107 [facility] Cholesterol [Mass/Vol] 136 mg/dL <200 [facility] Comment on above: <200 mg/dL Desirable 200-240 mg/dL Borderline >240 mg/dL High Risk Eosinophils/100 WBC (Bld) 1.8 % 0-5 [facility] Glucose [Mass/Vol] 87 mg/dL 74-106 [facility] Hemoglobin (Bld) [Mass/Vol] 15.3 g/dL 13.0-16.5 [facility] Monocytes/100 WBC (Bld) 10.5 % 0-10 [facility] Neutrophils (Bld) [#/Vol] 4.0 10*3/uL 2.0-7.7 [facility] Neutrophils/100 WBC (Bld) 48.4 % 47-70 [facility] Potassium [Moles/Vol] 3.7 mmol/L 3.5-5.1 [facility] Protein [Mass/Vol] 7.2 g/dL 6.4-8.2 [facility] Sodium [Moles/Vol] 140 mmol/L 136-145 [facility] Triglyceride [Mass/Vol] 127 mg/dL <199 [facility] Comment on above: The drugs N-Acetylcy steine and Metamizole may falsely depress this assay.Serum Triglycerides Reference Interval Normal <150 mg/dL Borderline high 150 - 199 mg/dL High 200 - 499 mg/dL Very High > or = 500 mg/dL WBC (Bld) [#/Vol] 8.2 10*3/uL 4.4-11.0 [facility] Determination of erythrocyte mean corpuscular volume (MCV)Ordered By: Ron Cooley on 12-15-2023 MCV (RBC) [Entitic vol] 90.0 fL 80-94 [facility] Erythrocyte distribution wid th ratioOrdered By: Ron Cooley on 12-15-2023 Erythrocyte distribution width (RBC) [Ratio] 13.2 % 11.6-14.6 [facility] Erythrocyte distribution wid th standard deviationOrdered By: Ron Cooley on 12-15-2023 Erythrocyte distribution width (RBC) [Entitic vol] 43.5 fL 35.1-43.9 [facility] Hematocrit Auto (Bld) [Volum e fraction]Ordered By: Ron Cooley on 12-15-2023 Hematocrit (Bld) [Volume fraction] 46.1 % 40-54 [facility] High density lipoprotein (HD L) measurementOrdered By: Ron Cooley on 12-15-2023 Cholesterol in HDL (Body fld) [Mass/Vol] 50 mg/dL >40 [facility] Comment on above: The drugs N-Acetylcy steine and Metamizole may falsely depress this assay. Reference Range HDL <40 mg/dL Low HDL Cholesterol HDL >or= 60 mg/dL High HDL Cholesterol Immature granulocytes/100 WB C Auto (Bld)Ordered By: Ron Cooley on 12-15-2023 Immature granulocytes/100 WBC (Bld) 0.500 % 0.0-0.9 [facility] Comment on above: IG% - Immature Granu locytes (promyelocytes, myelocytes and metamyelocytes) > 1% indicates that a LEFT SHIFT is Present. Laboratory - Chemistry and C hemistry - challengeOrdered By: Ron Cooley on 12-15-2023 Albumin/Globulin [Mass ratio] 1.1 {ratio} 0.9-2.4 [facility] ALP [Catalytic activity/Vol] 67 U/L 45-117 [facility] ALT [Catalytic activity/Vol] 12 U/L 16-61 [facility] CO2 [Moles/Vol] 29.0 mmol/L 21.0-32.0 [facility] Globulin (S) [Mass/Vol] 3.5 g/dL 2.2-4.2 [facility] Magnesium [Mass/Vol] 1.9 mg/dL 1.6-2.6 [facility] Urea nitrogen/Creatinine [Mass ratio] 19.3 mg/mg 10-20 [facility] Laboratory - Hematology and Cell countsOrdered By: Ron Cooley on 12-15-2023 MCH (RBC) [Entitic mass] 29.9 pg 27.0-32.0 [facility] MCHC (RBC) [Mass/Vol] 33.2 g/dL 32-36 [facility] Nucleated RBC/100 WBC (Bld) [Ratio] 0 % 0-5 [facility] Platelets (Bld) [#/Vol] 240 10*3/uL 150-450 [facility] Low density lipoprotein (LDL ) cholesterol measurementOrdered By: Ron Cooley on 12-15-2023 Cholesterol in LDL (Body fld) [Moles/Vol] 61 mg/dL 0-130 [facility] No Panel InformationOrdered By: Ron Cooley on 12-15-2023 Estimated GFR (MDRD) Amer 101 mL/min >60 [facility] Comment on above: GFR Calc Estimated GFR (MDRD) Non-Af Amer 83 mL/min >60 [facility] Comment on above: Non- GFR Calc Platelet mean volume [facility] (Bld) [Entitic vol]Ordered By: Ron Cooley on 12-15-2023 Platelet mean volume (Bld) [Entitic vol] 11.1 fL 6.2-12.0 [facility] RBC Auto (Bld) [#/Vol]Ordere d By: Ron Cooley on 12-15-2023 RBC (Bld) [#/Vol] 5.12 10*6/uL 4.6-6.2 [facility] Serum or plasma calcium walt urement (mass/volume)Ordered By: Ron Cooley on 12-15-2023 Calcium [Mass/Vol] 9.2 mg/dL 8.5-10.1 [facility] Serum or plasma creatinine m easurement (mass/volume)Ordered By: Ron Cooley on 12-15-2023 Creatinine [Mass/Vol] 0.93 mg/dL 0.70-1.30 [facility] Comment on above: The validity of the calculated GFR & GFRAA in patients over 70 years has not been determined. Clinical correlation is essential. Serum or plasma thyroid stim ulating hormone (TSH) measurement (units/volume)Ordered By: Ron Cooley on 12-15-2023 TSH Qn 1.60 uIU/mL 0.358-3.74 [facility] Serum or plasma urea nitroge n measurement (mass/volume)Ordered By: Ron Cooley on 12-15-2023 Urea nitrogen [Mass/Vol] 18 mg/dL 7-18 [facility] Thin prep Papanicolaou smear with manual screeningOrdered By: Ron Cooley on 12-15-2023 Thin prep Papanicolaou smear with manual screening 3.7 g/dL 3.2-5.0 [facility] Thin prep Papanicolaou smear with manual screening 14 U/L 15-37 [facility] Thin prep Papanicolaou smear with manual screening 4 5-15 [facility] Very low density lipoprotein (VLDL) cholesterol measurementOrdered By: Ron Cooley on 12-15-2023 Cholesterol in VLDL Calc [Moles/Vol] 25 mg/dL 5-40 [facility] Whole blood hemoglobin A1c/t otal hemoglobin ratio (mass fraction)Ordered By: Ron Cooley on 12-15-2023 HbA1c (Bld) [Mass fraction] 5.9 % 3.8-5.6 [facility] Comment on above: Normal < 5.7 % Predi abetic 5.7 - 6.4 % Diabetic >or= 6.5 % Please note range changes. Albumin Elph [Mass/Vol]Order ed By: Vick Santo on 11-23-2023 Albumin [Mass/Vol] 3.6 g/dL 2.9-4.4 [facility] Basophil percentageOrdered B y: Vick Santo on 11-23-2023 Basophil percentage Comment: . [facility] Comment on above: Presence of monoclon al protein is unclear at this time. Suggestrepeat in 3 to 6 months if clinically indicated.Performed at: [employer] [facility] [employer] [id number] Director: Vj Garcia PhD, Phone: [phone] Interpretation of serum or p lasma protein pattern by immunofixation (narrative resultOrdered By: Vick Santo on 11-23-2023 Protein Fractions Immunofixation Blanco [Interp] Not Observed g/dL Not Observed [facility] No Panel InformationOrdered By: Vick Santo on 11-23-2023 Addendum Document Comment . [facility] Comment on above: Protein electrophore sis scan will follow via computer,mail, or senior product analyst delivery. Serum [id number] measu rement by electrophoresisOrdered By: Vick Santo on 11-23-2023 Alpha 1 globulin Elph [Mass/Vol] 0.4 g/dL 0.0-0.4 [facility] Alpha 1 globulin Elph [Mass/Vol] 1.0 g/dL 0.4-1.0 [facility] Serum globulin measurement ( mass/volume)Ordered By: Vick Santo on 11-23-2023 Globulin (S) [Mass/Vol] 3.1 g/dL 2.2-3.9 [facility] Serum or plasma IgA measurem ent (mass/volume)Ordered By: Vick Santo on 11-23-2023 IgA [Mass/Vol] 167 mg/dL 61-437 [facility] Serum or plasma IgG measurem ent (mass/volume)Ordered By: Vick Santo on 11-23-2023 IgG [Mass/Vol] 849 mg/dL 603-1613 [facility] Serum or plasma IgM measurem ent (mass/volume)Ordered By: Vick Santo on 11-23-2023 IgM [Mass/Vol] 91 mg/dL 15-143 [facility] Serum or plasma beta globuli n measurement by electrophoresis (mass/volume)Ordered By: Vick Santo on 11-23-2023 Beta globulin Elph [Mass/Vol] 1.0 g/dL 0.7-1.3 [facility] Serum or plasma gamma globul in measurement by electrophoresis (mass/volume)Ordered By: Vick Santo on 11-23-2023 Gamma globulin Elph [Mass/Vol] 0.7 g/dL 0.4-1.8 [facility] Serum or plasma immunoelectr ophoresis interpretation (nominal result)Ordered By: Vick Santo on 11-23-2023 Interpretation IEP [Interp] Comment . [facility] Comment on above: No monoclonality det ected. Thin prep Papanicolaou smear with manual screeningOrdered By: Vick Gloverdenys on 11-23-2023 Thin prep Papanicolaou smear with manual screening 1.2 0.7-1.7 [facility] Total protein bloodOrdered B y: Vick Santo on 11-23-2023 Protein [Mass/Vol] 6.7 g/dL 6.0-8.5 [facility] Basophil percentageOrdered B y: Natasha Gregory on 10-31-2023 Chloride [Moles/Vol] 107 mmol/L 98-107 [facility] Glucose [Mass/Vol] 102 mg/dL 74-106 [facility] Comment on above: Fasting Glucose resu lt from 100 to 125 mg/dL suggests IMPAIRED HOMEOSTASIS per A.D.A. criteria. Potassium [Moles/Vol] 3.6 mmol/L 3.5-5.1 [facility] Sodium [Moles/Vol] 142 mmol/L 136-145 [facility] Laboratory - Chemistry and C hemistry - challengeOrdered By: Natasha Gregory on 10-31-2023 ALT [Catalytic activity/Vol] 11 U/L 16-61 [facility] CO2 [Moles/Vol] 28.0 mmol/L 21.0-32.0 [facility] Urea nitrogen/Creatinine [Mass ratio] 22.7 mg/mg 10-20 [facility] No Panel InformationOrdered By: Natasha Gregory on 10-31-2023 Estimated GFR (MDRD) Amer 101 mL/min >60 [facility] Comment on above: GFR Calc Estimated GFR (MDRD) Non-Af Amer 84 mL/min >60 [facility] Comment on above: Non- GFR Calc Serum or plasma calcium walt urement (mass/volume)Ordered By: Natasha Gregory on 10-31-2023 Calcium [Mass/Vol] 8.8 mg/dL 8.5-10.1 [facility] Serum or plasma creatinine m easurement (mass/volume)Ordered By: Natasha Gregory on 10-31-2023 Creatinine [Mass/Vol] 0.93 mg/dL 0.70-1.30 [facility] Comment on above: The validity of the calculated GFR & GFRAA in patients over 70 years has not been determined. Clinical correlation is essential. Serum or plasma urea nitroge n measurement (mass/volume)Ordered By: Natasha Gregory on 10-31-2023 Urea nitrogen [Mass/Vol] 21 mg/dL 7-18 [facility] Thin prep Papanicolaou smear with manual screeningOrdered By: Natasha Gregory on 10-31-2023 Thin prep Papanicolaou smear with manual screening 10 U/L 15-37 [facility] Thin prep Papanicolaou smear with manual screening 7 5-15 [facility] Whole blood hemoglobin A1c/t otal hemoglobin ratio (mass fraction)Ordered By: Natasha Gregory on 10-31-2023 HbA1c (Bld) [Mass fraction] 5.7 % 3.8-5.6 [facility] Comment on above: Normal < 5.7 % Predi abetic 5.7 - 6.4 % Diabetic >or= 6.5 % Please note range changes. Basophil percentageOrdered B y: Natasha Gregory on 08-03-2023 Chloride [Moles/Vol] 108 mmol/L 98-107 [facility] Cholesterol [Mass/Vol] 127 mg/dL <200 [facility] Comment on above: <200 mg/dL Desirable 200-240 mg/dL Borderline >240 mg/dL High Risk Glucose [Mass/Vol] 66 mg/dL 74-106 [facility] Potassium [Moles/Vol] 3.5 mmol/L 3.5-5.1 [facility] Sodium [Moles/Vol] 139 mmol/L 136-145 [facility] Triglyceride [Mass/Vol] 101 mg/dL <199 [facility] Comment on above: The drugs N-Acetylcy steine and Metamizole may falsely depress this assay.Serum Triglycerides Reference Interval Normal <150 mg/dL Borderline high 150 - 199 mg/dL High 200 - 499 mg/dL Very High > or = 500 mg/dL Laboratory - Chemistry and C hemistry - challengeOrdered By: Natasha Gregory on 08-03-2023 ALT [Catalytic activity/Vol] 11 U/L 16-61 [facility] CO2 [Moles/Vol] 26.0 mmol/L 21.0-32.0 [facility] Urea nitrogen/Creatinine [Mass ratio] 19.8 mg/mg 10-20 [facility] No Panel InformationOrdered By: Natasha Gregory on 08-03-2023 Urine Microalbumin/Creatinine Ratio 14.9 mg/g CRE <30 [facility] Estimated GFR (MDRD) Amer 97 mL/min >60 [facility] Comment on above: GFR Calc Estimated GFR (MDRD) Non-Af Amer 81 mL/min >60 [facility] Comment on above: Non- GFR Calc Thyroid Stimulating Hormone (TSH) 1.96 uIU/mL 0.358-3.74 [facility] Serum or plasma calcium walt urement (mass/volume)Ordered By: Natasha Gregory on 08-03-2023 Calcium [Mass/Vol] 9.0 mg/dL 8.5-10.1 [facility] Serum or plasma cholesterol in HDL measurement (mass/volume)Ordered By: Natasha Gregory on 08-03-2023 Cholesterol in HDL [Mass/Vol] 49 mg/dL >40 [facility] Comment on above: The drugs N-Acetylcy steine and Metamizole may falsely depress this assay. Reference Range HDL <40 mg/dL Low HDL Cholesterol HDL >or= 60 mg/dL High HDL Cholesterol Serum or plasma cholesterol in VLDL measurement (mass/volume)Ordered By: Natasha Gregory on 08-03-2023 Cholesterol in VLDL [Mass/Vol] 20 mg/dL 5-40 [facility] Serum or plasma creatinine m easurement (mass/volume)Ordered By: Natasha Gregory on 08-03-2023 Creatinine [Mass/Vol] 0.96 mg/dL 0.70-1.30 [facility] Comment on above: The validity of the calculated GFR & GFRAA in patients over 70 years has not been determined. Clinical correlation is essential. Serum or plasma low density lipoprotein (LDL) cholesterol measurement (mass/volume)Ordered By: Natasha Gregory on 08-03-2023 Cholesterol in LDL [Mass/Vol] 58 mg/dL 0-130 [facility] Serum or plasma urea nitroge n measurement (mass/volume)Ordered By: Natasha Gregory on 08-03-2023 Urea nitrogen [Mass/Vol] 19 mg/dL 7-18 [facility] Thin prep Papanicolaou smear with manual screeningOrdered By: Natasha Gregory on 08-03-2023 Thin prep Papanicolaou smear with manual screening 18.2 mg/L NO RANGE EST. [facility] Thin prep Papanicolaou smear with manual screening 9 U/L 15-37 [facility] Thin prep Papanicolaou smear with manual screening 5 5-15 [facility] Urine creatinine measurement (mass/volume)Ordered By: Natasha Gregory on 08-03-2023 Creatinine (U) [Mass/Vol] 122.00 mg/dL NO RANGE EST. [facility] Whole blood hemoglobin A1c/t otal hemoglobin ratio (mass fraction)Ordered By: Natasha Gregory on 08-03-2023 HbA1c (Bld) [Mass fraction] 6.2 % 3.8-5.6 [facility] Comment on above: Normal < 5.7 % Predi abetic 5.7 - 6.4 % Diabetic >or= 6.5 % Please note range changes. Basophil percentageOrdered B y: Dr. Santo on 05-09-2023 WBC (Bld) [#/Vol] 10.2 10*3/uL 4.4-11.0 [facility] Blood erythrocytes count (nu mber/volume)Ordered By: Dr. Santo on 05-09-2023 RBC (Bld) [#/Vol] 4.60 10*6/uL 4.6-6.2 [facility] Blood hemoglobin measurement (mass/volume)Ordered By: Dr. Santo on 05-09-2023 Hemoglobin (Bld) [Mass/Vol] 14.1 g/dL 13.0-16.5 [facility] Blood platelet mean volumeOr dered By: Dr. Santo on 05-09-2023 Platelet mean volume (Bld) [Entitic vol] 10.7 fL 6.2-12.0 [facility] Determination of erythrocyte mean corpuscular volume (MCV)Ordered By: Dr. Santo on 05-09-2023 MCV (RBC) [Entitic vol] 90.9 fL 80-94 [facility] Hematocrit Auto (Bld) [Volum e fraction]Ordered By: Dr. Santo on 05-09-2023 Hematocrit (Bld) [Volume fraction] 41.8 % 40-54 [facility] Laboratory - Chemistry and C hemistry - challengeOrdered By: Dr. Santo on 05-09-2023 Cobalamin (Vitamin B12) [Mass/Vol] 281 pg/mL 211-911 [facility] Laboratory - Hematology and Cell countsOrdered By: Dr. Santo on 05-09-2023 Erythrocyte distribution width (RBC) [Entitic vol] 44.1 fL 35.1-43.9 [facility] Erythrocyte distribution width (RBC) [Ratio] 13.3 % 11.6-14.6 [facility] MCH (RBC) [Entitic mass] 30.7 pg 27.0-32.0 [facility] MCHC Auto (RBC) [Mass/Vol]Or dered By: Dr. Santo on 05-09-2023 MCHC (RBC) [Mass/Vol] 33.7 g/dL 32-36 [facility] No Panel InformationOrdered By: Vick Santo on 05-09-2023 Free Lambda Light Chains, Quant 20.2 mg/L 5.7-26.3 [facility] Whole Blood Vitamin B1 Level 118.1 nmol/L 66.5-200.0 [facility] Comment on above: Performed at: [address] [id number] Director: Vj Garcia PhD, Phone: [phone] at: [facility] [employer] [id number] Director: Sherine Mendez MD, Phone: [phone] No Panel InformationOrdered By: Dr. Santo on 05-09-2023 Thyroid Stimulating Hormone (TSH) 2.11 uIU/mL 0.358-3.74 [facility] Platelets bldOrdered By: Dr. Santo on 05-09-2023 Platelets (Bld) [#/Vol] 285 10*3/uL 150-450 [facility] Serum immunoglobulin kappa l ight chains/immunoglobulin lambda light chains mass ratioOrdered By: Vick Santo on 05-09-2023 Immunoglobulin light chains.kappa/Immunoglobul in light chains.lambda (S) [Mass ratio] 1.69 0.26-1.65 [facility] Serum or plasma folate measu rement (mass/volume)Ordered By: Dr. Santo on 05-09-2023 Folate [Mass/Vol] 11.40 ng/mL 3.1-55.4 [facility] Serum or plasma immunoglobul in kappa light chains measurement (mass/volume)Ordered By: Vick Santo on 05-09-2023 Immunoglobulin light chains.kappa [Mass/Vol] 34.1 mg/L 3.3-19.4 [facility] Basophil percentageOrdered B y: Dr. Gregory on 05-01-2023 Chloride [Moles/Vol] 107 mmol/L 98-107 [facility] Glucose [Mass/Vol] 98 mg/dL 74-106 [facility] Potassium [Moles/Vol] 3.8 mmol/L 3.5-5.1 [facility] Sodium [Moles/Vol] 140 mmol/L 136-145 [facility] Laboratory - Chemistry and C hemistry - challengeOrdered By: Dr. Gregory on 05-01-2023 ALT [Catalytic activity/Vol] 13 U/L 16-61 [facility] CO2 [Moles/Vol] 26.0 mmol/L 21.0-32.0 [facility] Urea nitrogen/Creatinine [Mass ratio] 23.4 mg/mg 10-20 [facility] No Panel InformationOrdered By: Dr. Gregory on 05-01-2023 Estimated GFR (MDRD) Amer 95 mL/min >60 [facility] Comment on above: GFR Calc Estimated GFR (MDRD) Non-Af Amer 78 mL/min >60 [facility] Comment on above: Non- GFR Calc Serum or plasma calcium walt urement (mass/volume)Ordered By: Dr. Gregory on 05-01-2023 Calcium [Mass/Vol] 9.0 mg/dL 8.5-10.1 [facility] Serum or plasma creatinine m easurement (mass/volume)Ordered By: Dr. Gregory on 05-01-2023 Creatinine [Mass/Vol] 0.98 mg/dL 0.70-1.30 [facility] Comment on above: The validity of the calculated GFR & GFRAA in patients over 70 years has not been determined. Clinical correlation is essential. Serum or plasma urea nitroge n measurement (mass/volume)Ordered By: Dr. Gregory on 05-01-2023 Urea nitrogen [Mass/Vol] 23 mg/dL 7-18 [facility] Thin prep Papanicolaou smear with manual screeningOrdered By: Dr. Gregory on 05-01-2023 Thin prep Papanicolaou smear with manual screening 12 U/L 15-37 [facility] Thin prep Papanicolaou smear with manual screening 7 5-15 [facility] Whole blood hemoglobin A1c/t otal hemoglobin ratio (mass fraction)Ordered By: Dr. Gregory on 05-01-2023 HbA1c (Bld) [Mass fraction] 6.2 % 3.8-5.6 [facility] Comment on above: Normal < 5.7 % Predi abetic 5.7 - 6.4 % Diabetic >or= 6.5 % Please note range changes. Absolute lymphocyte countOrd ered By: Dr. Cooley on 02-21-2023 Lymphocytes Auto (Unsp spec) [#/Vol] 3.36 10*3/uL 0.83-4.51 [facility] Basophil percentageOrdered B y: Dr. Cooley on 02-21-2023 Basophils/100 WBC (Bld) 0.7 % 0-1 [facility] Bilirubin [Mass/Vol] 0.60 mg/dL 0.20-1.00 [facility] Comment on above: For patients on eltr ombopag therapy, use of Dimension [place] TBIL is not recommended. Chloride [Moles/Vol] 104 mmol/L 98-107 [facility] Cholesterol [Mass/Vol] 133 mg/dL <200 [facility] Comment on above: <200 mg/dL Desirable 200-240 mg/dL Borderline >240 mg/dL High Risk Eosinophils/100 WBC (Bld) 1.5 % 0-5 [facility] Glucose [Mass/Vol] 232 mg/dL 74-106 [facility] Comment on above: Glucose result great er than or equal to 200 mg/dLsuggests DIABETES MELLITUS per A.D.A. criteria. Neutrophils (Bld) [#/Vol] 5.4 10*3/uL 2.0-7.7 [facility] Neutrophils/100 WBC (Bld) 53.2 % 47-70 [facility] Potassium [Moles/Vol] 4.0 mmol/L 3.5-5.1 [facility] Protein [Mass/Vol] 6.8 g/dL 6.4-8.2 [facility] Sodium [Moles/Vol] 137 mmol/L 136-145 [facility] Triglyceride [Mass/Vol] 117 mg/dL <199 [facility] Comment on above: The drugs N-Acetylcy steine and Metamizole may falsely depress this assay.Serum Triglycerides Reference Interval Normal <150 mg/dL Borderline high 150 - 199 mg/dL High 200 - 499 mg/dL Very High > or = 500 mg/dL WBC (Bld) [#/Vol] 10.1 10*3/uL 4.4-11.0 [facility] Blood erythrocytes count (nu mber/volume)Ordered By: Dr. Cooley on 02-21-2023 RBC (Bld) [#/Vol] 4.56 10*6/uL 4.6-6.2 [facility] Blood hemoglobin measurement (mass/volume)Ordered By: Dr. Cooley on 02-21-2023 Hemoglobin (Bld) [Mass/Vol] 14.0 g/dL 13.0-16.5 [facility] Blood lymphocytes/100 leukoc ytesOrdered By: Dr. Cooley on 02-21-2023 Lymphocytes/100 WBC (Bld) 33.3 % 19-41 [facility] Blood monocytes/100 leukocyt esOrdered By: Dr. Cooley on 02-21-2023 Monocytes/100 WBC (Bld) 10.4 % 0-10 [facility] Blood platelet mean volumeOr dered By: Dr. Cooley on 02-21-2023 Platelet mean volume (Bld) [Entitic vol] 10.2 fL 6.2-12.0 [facility] Determination of erythrocyte mean corpuscular volume (MCV)Ordered By: Dr. Cooley on 02-21-2023 MCV (RBC) [Entitic vol] 92.5 fL 80-94 [facility] Hematocrit Auto (Bld) [Volum e fraction]Ordered By: Dr. Cooley on 02-21-2023 Hematocrit (Bld) [Volume fraction] 42.2 % 40-54 [facility] Laboratory - Chemistry and C hemistry - challengeOrdered By: Dr. Cooley on 02-21-2023 ALP [Catalytic activity/Vol] 68 U/L 45-117 [facility] ALT [Catalytic activity/Vol] 19 U/L 16-61 [facility] CO2 [Moles/Vol] 27.0 mmol/L 21.0-32.0 [facility] Globulin (S) [Mass/Vol] 3.4 g/dL 2.2-4.2 [facility] Magnesium [Mass/Vol] 1.9 mg/dL 1.6-2.6 [facility] Urea nitrogen/Creatinine [Mass ratio] 27.1 mg/mg 10-20 [facility] Laboratory - Hematology and Cell countsOrdered By: Dr. Cooley on 02-21-2023 Erythrocyte distribution width (RBC) [Entitic vol] 47.2 fL 35.1-43.9 [facility] Erythrocyte distribution width (RBC) [Ratio] 14.0 % 11.6-14.6 [facility] Immature granulocytes/100 WBC (Bld) 0.900 % 0.0-0.9 [facility] Comment on above: IG% - Immature Granu locytes (promyelocytes, myelocytes and metamyelocytes) > 1% indicates that a LEFT SHIFT is Present. MCH (RBC) [Entitic mass] 30.7 pg 27.0-32.0 [facility] Nucleated RBC/100 WBC (Bld) [Ratio] 0 % 0-5 [facility] MCHC Auto (RBC) [Mass/Vol]Or dered By: Dr. Cooley on 02-21-2023 MCHC (RBC) [Mass/Vol] 33.2 g/dL 32-36 [facility] No Panel InformationOrdered By: Dr. Cooley on 02-21-2023 Estimated GFR (MDRD) Amer 93 mL/min >60 [facility] Comment on above: GFR Calc Estimated GFR (MDRD) Non-Af Amer 77 mL/min >60 [facility] Comment on above: Non- GFR Calc Thyroid Stimulating Hormone (TSH) 1.59 uIU/mL 0.358-3.74 [facility] Urine Microalbumin/Creatinine Ratio 10.3 mg/g CRE <30 [facility] Platelets bldOrdered By: Dr. Cooley on 02-21-2023 Platelets (Bld) [#/Vol] 330 10*3/uL 150-450 [facility] Serum or plasma albumin walt urement (mass/volume)Ordered By: Dr. Cooley on 02-21-2023 Albumin [Mass/Vol] 3.4 g/dL 3.2-5.0 [facility] Serum or plasma albumin/glob ulin mass ratioOrdered By: Dr. Cooley on 02-21-2023 Albumin/Globulin [Mass ratio] 1.0 {ratio} 0.9-2.4 [facility] Serum or plasma calcium walt urement (mass/volume)Ordered By: Dr. Cooley on 02-21-2023 Calcium [Mass/Vol] 9.1 mg/dL 8.5-10.1 [facility] Serum or plasma cholesterol in HDL measurement (mass/volume)Ordered By: Dr. Cooley on 02-21-2023 Cholesterol in HDL [Mass/Vol] 52 mg/dL >40 [facility] Comment on above: The drugs N-Acetylcy steine and Metamizole may falsely depress this assay. Reference Range HDL <40 mg/dL Low HDL Cholesterol HDL >or= 60 mg/dL High HDL Cholesterol Serum or plasma cholesterol in VLDL measurement (mass/volume)Ordered By: Dr. Cooley on 02-21-2023 Cholesterol in VLDL [Mass/Vol] 23 mg/dL 5-40 [facility] Serum or plasma creatinine m easurement (mass/volume)Ordered By: Dr. Cooley on 02-21-2023 Creatinine [Mass/Vol] 1.00 mg/dL 0.70-1.30 [facility] Comment on above: The validity of the calculated GFR & GFRAA in patients over 70 years has not been determined. Clinical correlation is essential. Serum or plasma low density lipoprotein (LDL) cholesterol measurement (mass/volume)Ordered By: Dr. Cooley on 02-21-2023 Cholesterol in LDL [Mass/Vol] 58 mg/dL 0-130 [facility] Serum or plasma urea nitroge n measurement (mass/volume)Ordered By: Dr. Cooley on 02-21-2023 Urea nitrogen [Mass/Vol] 27 mg/dL 7-18 [facility] Thin prep Papanicolaou smear with manual screeningOrdered By: Dr. Cooley on 02-21-2023 Thin prep Papanicolaou smear with manual screening 9 U/L 15-37 [facility] Thin prep Papanicolaou smear with manual screening 6 5-15 [facility] Thin prep Papanicolaou smear with manual screening 11.9 mg/L NO RANGE EST. [facility] Urine creatinine measurement (mass/volume)Ordered By: Dr. Cooley on 02-21-2023 Creatinine (U) [Mass/Vol] 115.00 mg/dL NO RANGE EST. [facility] Whole blood hemoglobin A1c/t otal hemoglobin ratio (mass fraction)Ordered By: Dr. Cooley on 02-21-2023 HbA1c (Bld) [Mass fraction] 6.4 % 3.8-5.6 [facility] Comment on above: Normal < 5.7 % Predi abetic 5.7 - 6.4 % Diabetic >or= 6.5 % Please note range changes. Anabelle 02-14-2023 JUMA Telephone (NIKOS) NACHOKEVIN ([id number]) 1945 M Date Time Provider Department 02/14/23 [...] is very concerned. Please call her at [phone]. Raeann Harrison RN 02/14/2023 3:05 PM Signed Received voicemail from patients' on Mon02/14/2023 2:28 PM Transcript below: This is Brennen Griffith. My phone number is [phone]. I'm calling for my Kevin Griffith. His [...] really bad or it's gonna be a fpc and I don't wanna do that so [...] 02/15/2023 9:21 AM Signed Patient responded to [facility] inquire and denied any s/s of UTI, [...] RN reiterated guidance to be seen by FRANCHESKA Webb or a member of his team to [...] mg tablet (more content not included)... Normal [facility] CNPNon 01-10-2023 CNPN Telephone (NRMDN) KEVIN GRIFFITH ([id number]) 1945 M Date Time Provider Department 01/10/23 JAYLYN NIEVES During your visit today, we recorded the following information about you: Grace Sibley RN 01/10/2023 4:24 PM Signed Voicemail received January 10, 2023 4578 My name is Brennen Griffith. My phone number is [phone]. My 's name is Kevin Griffith. He [...] is Brennen Griffith. My phone number is [phone]. This is in regard to Kevin Griffith. [...] 50 MCG, 2,000 UNIT, GUMMIES) - fluticasone gtgdtff-pakawmfsqwym-uo lanterol (TRELEGY ELLIPTA) 200-62.5-25 mcg powder inhaler [...] Status:Closed by KAREN PARRA on 01/13/[address] [facility] Basophil percentageOrdered B y: Dr. Gregory on 01-04-2023 Chloride [Moles/Vol] 106 mmol/L 98-107 [facility] Cholesterol [Mass/Vol] 139 mg/dL <200 [facility] Comment on above: <200 mg/dL Desirable 200-240 mg/dL Borderline >240 mg/dL High Risk Glucose [Mass/Vol] 55 mg/dL 74-106 [facility] Potassium [Moles/Vol] 3.9 mmol/L 3.5-5.1 [facility] Sodium [Moles/Vol] 143 mmol/L 136-145 [facility] Triglyceride [Mass/Vol] 133 mg/dL <199 [facility] Comment on above: The drugs N-Acetylcy steine and Metamizole may falsely depress this assay.Serum Triglycerides Reference Interval Normal <150 mg/dL Borderline high 150 - 199 mg/dL High 200 - 499 mg/dL Very High > or = 500 mg/dL Laboratory - Chemistry and C hemistry - challengeOrdered By: Dr. Gregory on 01-04-2023 ALT [Catalytic activity/Vol] 12 U/L 16-61 [facility] CO2 [Moles/Vol] 27.0 mmol/L 21.0-32.0 [facility] Urea nitrogen/Creatinine [Mass ratio] 25.1 mg/mg 10-20 [facility] No Panel InformationOrdered By: Dr. Gregory on 01-04-2023 Estimated GFR (MDRD) Amer 98 mL/min >60 [facility] Comment on above: GFR Calc Estimated GFR (MDRD) Non-Af Amer 81 mL/min >60 [facility] Comment on above: Non- GFR Calc Serum or plasma calcium walt urement (mass/volume)Ordered By: Dr. Gregory on 01-04-2023 Calcium [Mass/Vol] 8.9 mg/dL 8.5-10.1 [facility] Serum or plasma cholesterol in HDL measurement (mass/volume)Ordered By: Dr. Gregory on 01-04-2023 Cholesterol in HDL [Mass/Vol] 44 mg/dL >40 [facility] Comment on above: The drugs N-Acetylcy steine and Metamizole may falsely depress this assay. Reference Range HDL <40 mg/dL Low HDL Cholesterol HDL >or= 60 mg/dL High HDL Cholesterol Serum or plasma cholesterol in VLDL measurement (mass/volume)Ordered By: Dr. Gregory on 01-04-2023 Cholesterol in VLDL [Mass/Vol] 27 mg/dL 5-40 [facility] Serum or plasma creatinine m easurement (mass/volume)Ordered By: Dr. Gregory on 01-04-2023 Creatinine [Mass/Vol] 0.96 mg/dL 0.70-1.30 [facility] Comment on above: The validity of the calculated GFR & GFRAA in patients over 70 years has not been determined. Clinical correlation is essential. Serum or plasma low density lipoprotein (LDL) cholesterol measurement (mass/volume)Ordered By: Dr. Gregory on 01-04-2023 Cholesterol in LDL [Mass/Vol] 68 mg/dL 0-130 [facility] Serum or plasma urea nitroge n measurement (mass/volume)Ordered By: Dr. Gregory on 01-04-2023 Urea nitrogen [Mass/Vol] 24 mg/dL 7-18 [facility] Thin prep Papanicolaou smear with manual screeningOrdered By: Dr. Gregory on 01-04-2023 Thin prep Papanicolaou smear with manual screening 16 U/L 15-37 [facility] Thin prep Papanicolaou smear with manual screening 10 5-15 [facility] Whole blood hemoglobin A1c/t otal hemoglobin ratio (mass fraction)Ordered By: Dr. Gregory on 01-04-2023 HbA1c (Bld) [Mass fraction] 6.3 % 3.8-5.6 [facility] Comment on above: Normal < 5.7 % Predi abetic 5.7 - 6.4 % Diabetic >or= 6.5 % Please note range changes. CNOVon 12-12-2022 CNOV Office Visit (NRN) KEVIN GRIFFITH ([id number]) 1945 M Date Time Provider Department 12/12/22 2:00 PM LENI RUIZ During your visit today, we recorded the following information about you: Weight Height 118.3 kg 1.778 m Leni Ruiz APRN.[employer] MANAGER 12/13/2022 10:48 PM Signed [facility] - FOLLOW UP EVALUATION Ron Cooley MD [address] [facility] [address] Dear Ron Cooley MD: I had the [...] Flowsheet Row OT/PT/Speech Visit from 10/04/2022 in [facility] Outpatient Physical Therapy OT/PT/Speech Visit from 08/25/2022 in [facility] Out[facility] Physical Therapy [facility] T [...] Exercise: Last PT Date: Last OT Date: ST Date: Exercises Regularly: ALLERGIES Allergen Reactions Reglan [Metoclopram* Mental Status Change psychosis Current [facility]pa (more content not included)... [facility]NR[facility]N) KEVIN GRIFFITH ([id number]) 1945 M Date Time Provider Department 10/10/22 JAYLYN NIEVES During your visit today, we recorded the following information about you: Seven Harrison RN 10/10/2022 2:45 PM Signed Received voicemail from patient on Mon10/10/2022 9:09 AM Transcript below: Morning this is Kevin Griffith and my phone number is [phone]. I calling to find out if there's [...] Voicemail left directing patient to a detailed [employer] message. Requested reply via [facility] or RCTO. [...] tablet by mouth twice daily. - fluticasone rymsgwn-csanaednjvku-wm lanterol (TRELEGY ELLIPTA) 200-62.5-25 mcg powder inhaler [...] Encounter Status:Closed by SEVEN HARRISON on 10/10/22 [facility] CNTHERAPYon 10-04-2022 CNTHERAPY OT/PT/Speech Visit (PTMDRG) KEVIN GRIFFITH ([id number]) 1945 M Date Time Provider Department 10/04/22 11:30 AM KORI RYDER Date Time Provider Department Center 10/04/2022 11:30 AM [id number] RYDER [facility] Reason for Visit: Physical Therapy [503] PT [...] 50 MCG, 2,000 UNIT, GUMMIES) - fluticasone ofxejtp-wagzbqlmdkof-ce lanterol (TRELEGY ELLIPTA) 200-62.5-25 mcg powder inhaler [...] 80 mg by mouth once daily. Normal [facility] Basophil percentageOrdered B y: Dr. Gregory on 09-16-2022 Chloride [Moles/Vol] 105 mmol/L 98-107 [facility] Glucose [Mass/Vol] 142 mg/dL 74-106 [facility] Comment on above: Fasting Glucose resu lt greater than or equal to 126 mg/dL suggests DIABETES MELLITUS per A.D.A. criteria. Potassium [Moles/Vol] 3.8 mmol/L 3.5-5.1 [facility] Sodium [Moles/Vol] 137 mmol/L 136-145 [facility] Laboratory - Chemistry and C hemistry - challengeOrdered By: Dr. Gregory on 09-16-2022 ALT [Catalytic activity/Vol] 13 U/L 16-61 [facility] CO2 [Moles/Vol] 24.0 mmol/L 21.0-32.0 [facility] Urea nitrogen/Creatinine [Mass ratio] 24.0 mg/mg 10-20 [facility] No Panel InformationOrdered By: Dr. Gregory on 09-16-2022 Estimated GFR (MDRD) Amer 89 mL/min >60 [facility] Comment on above: GFR Calc Estimated GFR (MDRD) Non-Af Amer 73 mL/min >60 [facility] Comment on above: Non- GFR Calc Thyroid Stimulating Hormone (TSH) 1.71 uIU/mL 0.358-3.74 [facility] Serum or plasma calcium walt urement (mass/volume)Ordered By: Dr. Gregory on 09-16-2022 Calcium [Mass/Vol] 9.4 mg/dL 8.5-10.1 [facility] Serum or plasma creatinine m easurement (mass/volume)Ordered By: Dr. Gregory on 09-16-2022 Creatinine [Mass/Vol] 1.04 mg/dL 0.70-1.30 [facility] Comment on above: The validity of the calculated GFR & GFRAA in patients over 70 years has not been determined. Clinical correlation is essential. Serum or plasma urea nitroge n measurement (mass/volume)Ordered By: Dr. Gregory on 09-16-2022 Urea nitrogen [Mass/Vol] 25 mg/dL 7-18 [facility] Thin prep Papanicolaou smear with manual screeningOrdered By: Dr. Gregory on 09-16-2022 Thin prep Papanicolaou smear with manual screening 13 U/L 15-37 [facility] Thin prep Papanicolaou smear with manual screening 8 5-15 [facility] Whole blood hemoglobin A1c/t otal hemoglobin ratio (mass fraction)Ordered By: Dr. Gregory on 09-16-2022 HbA1c (Bld) [Mass fraction] 6.5 % 3.8-5.6 [facility] Comment on above: Normal < 5.7 % Predi abetic 5.7 - 6.4 % Diabetic >or= 6.5 % Please note range changes. CNTHERAPYon 09-15-2022 CNTHERAPY OT/PT/Speech Visit (PTMDRG) KEVIN GRIFFITH ([id number]) 1945 M Date Time Provider Department 09/15/22 4:00 PM KORI RYDER Date Time Provider Department Center 09/15/2022 4:00 PM [id number] KORI ESCALANTE [facility] Reason for Visit: Physical Therapy [503] Primary [...] tablet by mouth twice daily. - fluticasone nsxjfcy-nsgdcguoaoke-mm lanterol (TRELEGY ELLIPTA) 200-62.5-25 mcg powder inhaler [...] Take 80 mg by mouth once daily. [facility]20[facility] ([id number]) 1945 M Date Time Provider Department 09/12/22 JAYLYN NIEVES NREUS2 During your visit today, we recorded the following information about you: Lena Gallo [facility] 09/12/2022 2:37 PM Signed NI PHONE NAME OF CALLER: Brennen RELATIONSHIP TO PATIENT: spouse PATIENT ID'D BY NAME/: yes REASON FOR CALL: States that his PD symptoms are worsening and she would like to speak with Stefania. CALLBACK #: [phone] OK TO LEAVE MESSAGE: ok only on this number - do not leave at home number LAST FUV: 08/04/22 with CAR Harrison RN 09/13/2022 12:32 PM Signed Returned call to Brennen. No reply, left detailed message requesting RCTO. Provided office number for call back. Awaiting reply. Seven Harrison, YVONNE, RN September 13, 2022 12:31 PM Seven [...] Naik, RN September 15, 2022 4:40 PM Jaylyn Nieves [...] for RCTO and option to message via [employer]. YVONNE Naik, RN September 16, 2022 8:48 AM Allergies [...] COMFORT PEN NEEDLE 31 gauge x 04/04 - carbidopa-levodopa (SINEMET 25-100) 25-100 mg per tablet Take 2 tablets by mouth three times daily. - insulin glargine U-300 conc (TOUJEO MAX U-300 SOLOSTAR) 300 unit/mL (3 mL) inpn Inject 88 Units subcutaneously. - hydroCHLOROthiazide (HYDRODIURIL, ESIDRIX) 12.5 mg tablet (more content not included)... Normal [facility] CNTHERAPYon 08-25-2022 CNTHERAPY OT/PT/Speech Visit (PTMDRG) KEVIN GRIFFITH ([id number]) 1945 M Date Time Provider Department 08/25/22 5:30 PM KORI RYDER Date Time Provider Department Center 08/25/2022 5:30 PM [id number] RYDER [facility] Reason for Visit: Physical Therapy [503] Primary [...] tablet by mouth twice daily. - fluticasone jnvmkgx-vsppvmuilvpw-xg lanterol (TRELEGY ELLIPTA) 200-62.5-25 mcg powder inhaler [...] Take 80 mg by mouth once daily. [facility] CNTHERAPYon 08-11-2022 CNTHERAPY OT/PT/Speech Visit (PTMG) KEVIN GRIFFITH ([id number]) 1945 M Date Time Provider Department 08/11/22 1:00 PM KORI RYDER Date Time Provider Department Center 08/11/2022 1:00 PM [id number] RYDER [facility] Reason for Visit: PT Eval [747] Patient [...] tablet by mouth twice daily. - fluticasone ifmgitk-pszywqldlrai-ki lanterol (TRELEGY ELLIPTA) 200-62.5-25 mcg powder inhaler [...] 80 mg by mouth once daily. Normal [facility] 08-04-2022 [facility] Office Visit (NRMDN) KEVIN GRIFFITH ([id number]) 1945 M Date Time Provider Department 08/04/22 2:[address] [facility] During your visit today, we recorded the following information about you: Pulse Respiration Blood pressure 107/minute 16/minute 109/86 Jaylyn Nieves MD 08/04/2022 5:35 PM Signed CNR-[facility]EMENT [facility] - FOLLOW UP EVALUATION Ron Cooley MD [address] [facility] [address] [facility] [address] I had the pleasure of seeing Mr. [...] 1 tablet by mouth twice daily. fluticasone yznsuos-voeepqunpqdk-eo lanterol (TRELEGY ELLIPTA) 200-62.5-25 mcg powder inhaler Inhale 1 Puff as instructed once daily. aspirin, enteric coated (ASPIRIN, ENTERIC COATED) 81 mg EC tablet Take 81 mg by mouth once daily. tamsulosin (FLOMAX) 0.4 mg Take 0.4 m (more content not included)... Normal [facility] No Panel Informationon 08-01 Prostate Specific Antigen Screen 5.11 ng/mL 0.00-4.00 [facility] Work Phone: Comment on above: This test was perfor med using the TPSA assay method for the[facility] chemistry system. Values obtained with differentassay methods cannot be used interchangably.When changing PSA assays in the course of monitoring apatient, additional sequential testing should be carriedout to confirm baseline values. Anabelle 07-21-2022 [facility] LAINEYKEVIN WEEMS ([id number]) 1945 M Date Time Provider Department 07/21/22 JAYLYN NIEVES During your visit today, we recorded the following information about you: Seven Harrison RN 07/21/2022 1:09 PM Signed Received voicemail from patient's on Rosalia 07/21/2022 10:52 AM Transcript below: Kaila my name is Brennen Griffith. My 's name is Kevin Griffith. He is a patient of Dr. Gordillo. My phone number is [phone]. I'm calling to speak to somebody regarding [...] Updates shared with MD CAR AND JANY, LOAN ANALYST. If any guidance is suggested, RN will [...] Status:Closed by SEVEN HARRISON on 07/21/[address] [facility] No Panel Informationon 06-21 Urine Microalbumin/Creatinine Ratio 12.4 mg/g CRE <30 [facility] Work Phone: Thin prep Papanicolaou smear with manual screeningon 06-21-2022 Thin prep Papanicolaou smear with manual screening 17.8 mg/L NO RANGE EST. [facility] Work Phone: Urine creatinine measurement (mass/volume)on 06-21-2022 Creatinine (U) [Mass/Vol] 144.00 mg/dL NO RANGE EST. [facility] Work Phone: Basophil percentageon 2021 Chloride [Moles/Vol] 102 mmol/L 98-107 [facility] Work Phone: Cholesterol [Mass/Vol] 140 mg/dL <200 [facility] Work Phone: Comment on above: <200 mg/dL Desirable 200-240 mg/dL Borderline >240 mg/dL High Risk Glucose [Mass/Vol] 224 mg/dL 74-106 [facility] Work Phone: Comment on above: Glucose result great er than or equal to 200 mg/dLsuggests DIABETES MELLITUS per A.D.A. criteria. Potassium [Moles/Vol] 3.9 mmol/L 3.5-5.1 [facility] Work Phone: Sodium [Moles/Vol] 137 mmol/L 136-145 [facility] Work Phone: Triglyceride [Mass/Vol] 161 mg/dL <199 [facility] Work Phone: Comment on above: The drugs N-Acetylcy steine and Metamizole may falsely depress this assay.Serum Triglycerides Reference Interval Normal <150 mg/dL Borderline high 150 - 199 mg/dL High 200 - 499 mg/dL Very High > or = 500 mg/dL Laboratory - Chemistry and C hemistry - challengeon 06-20-2022 ALT [Catalytic activity/Vol] 21 U/L 16-61 [facility] Work Phone: CO2 [Moles/Vol] 29.0 mmol/L 21.0-32.0 [facility] Work Phone: Urea nitrogen/Creatinine [Mass ratio] 21.7 mg/mg 10-20 [facility] Work Phone: No Panel Informationon 06-20 Estimated GFR (MDRD) Amer 75 mL/min >60 [facility] Work Phone: Comment on above: GFR Calc Estimated GFR (MDRD) Non-Af Amer 62 mL/min >60 [facility] Work Phone: Comment on above: Non- GFR Calc Serum or plasma calcium walt urement (mass/volume)on 06-20-2022 Calcium [Mass/Vol] 8.8 mg/dL 8.5-10.1 [facility] Work Phone: Serum or plasma cholesterol in HDL measurement (mass/volume)on 06-20-2022 Cholesterol in HDL [Mass/Vol] 47 mg/dL >40 [facility] Work Phone: Comment on above: The drugs N-Acetylcy steine and Metamizole may falsely depress this assay. Reference Range HDL <40 mg/dL Low HDL Cholesterol HDL >or= 60 mg/dL High HDL Cholesterol Serum or plasma cholesterol in VLDL measurement (mass/volume)on 06-20-2022 Cholesterol in VLDL [Mass/Vol] 32 mg/dL 5-40 [facility] Work Phone: Serum or plasma creatinine m easurement (mass/volume)on 06-20-2022 Creatinine [Mass/Vol] 1.20 mg/dL 0.70-1.30 [facility] Work Phone: Comment on above: The validity of the calculated GFR & GFRAA in patients over 70 years has not been determined. Clinical correlation is essential. Serum or plasma low density lipoprotein (LDL) cholesterol measurement (mass/volume)on 06-20-2022 Cholesterol in LDL [Mass/Vol] 61 mg/dL 0-130 [facility] Work Phone: Serum or plasma urea nitroge n measurement (mass/volume)on 06-20-2022 Urea nitrogen [Mass/Vol] 26 mg/dL 7-18 [facility] Work Phone: Thin prep Papanicolaou smear with manual screeningon 06-20-2022 Thin prep Papanicolaou smear with manual screening 17 U/L 15-37 [facility] Work Phone: Thin prep Papanicolaou smear with manual screening 6 5-15 [facility] Work Phone: Whole blood hemoglobin A1c/t otal hemoglobin ratio (mass fraction)on 06-20-2022 HbA1c (Bld) [Mass fraction] 6.7 % 3.8-5.6 [facility] Work Phone: Comment on above: Normal < 5.7 % Predi abetic 5.7 - 6.4 % Diabetic >or= 6.5 % Please note range changes. Absolute lymphocyte counton 04-25-2022 Lymphocytes Auto (Unsp spec) [#/Vol] 3.24 10*3/uL 0.83-4.51 [facility] Work Phone: Basophil percentageon 2021 Basophil percentage 0-5 SEEN /hpf 0-5 [facility] Work Phone: Basophils/100 WBC (Bld) 1.2 % 0-1 [facility] Work Phone: Bilirubin [Mass/Vol] 0.70 mg/dL 0.20-1.00 [facility] Work Phone: Comment on above: For patients on eltr ombopag therapy, use of Dimension [place] TBIL is not recommended. Chloride [Moles/Vol] 103 mmol/L 98-107 [facility] Work Phone: Cholesterol [Mass/Vol] 138 mg/dL <200 [facility] Work Phone: Comment on above: <200 mg/dL Desirable 200-240 mg/dL Borderline >240 mg/dL High Risk Eosinophils/100 WBC (Bld) 2.6 % 0-5 [facility] Work Phone: Glucose [Mass/Vol] 168 mg/dL 74-106 [facility] Work Phone: Comment on above: Fasting Glucose resu lt greater than or equal to 126 mg/dL suggests DIABETES MELLITUS per A.D.A. criteria. Neutrophils (Bld) [#/Vol] 4.2 10*3/uL 2.0-7.7 [facility] Work Phone: Neutrophils/100 WBC (Bld) 46.5 % 47-70 [facility] Work Phone: Potassium [Moles/Vol] 3.9 mmol/L 3.5-5.1 [facility] Work Phone: Protein [Mass/Vol] 7.3 g/dL 6.4-8.2 [facility] Work Phone: Sodium [Moles/Vol] 137 mmol/L 136-145 [facility] Work Phone: Triglyceride [Mass/Vol] 193 mg/dL <199 [facility] Work Phone: Comment on above: The drugs N-Acetylcy steine and Metamizole may falsely depress this assay.Serum Triglycerides Reference Interval Normal <150 mg/dL Borderline high 150 - 199 mg/dL High 200 - 499 mg/dL Very High > or = 500 mg/dL WBC (Bld) [#/Vol] 8.9 10*3/uL 4.4-11.0 [facility] Work Phone: Bilirubin Test strip Ql (U)o n 04-25-2022 Bilirubin Ql (U) Negative Negative [facility] Work Phone: Blood erythrocytes count (nu mber/volume)on 04-25-2022 RBC (Bld) [#/Vol] 4.66 10*6/uL 4.6-6.2 [facility] Work Phone: Blood hemoglobin measurement (mass/volume)on 04-25-2022 Hemoglobin (Bld) [Mass/Vol] 14.6 g/dL 13.0-16.5 [facility] Work Phone: Blood lymphocytes/100 leukoc yteson 04-25-2022 Lymphocytes/100 WBC (Bld) 36.4 % 19-41 [facility] Work Phone: Blood monocytes/100 leukocyt eson 04-25-2022 Monocytes/100 WBC (Bld) 12.6 % 0-10 [facility] Work Phone: Blood platelet mean volumeon 04-25-2022 Platelet mean volume (Bld) [Entitic vol] 10.1 fL 6.2-12.0 [facility] Work Phone: Determination of erythrocyte mean corpuscular volume (MCV)on 04-25-2022 MCV (RBC) [Entitic vol] 93.3 fL 80-94 [facility] Work Phone: Hematocrit Auto (Bld) [Volum e fraction]on 04-25-2022 Hematocrit (Bld) [Volume fraction] 43.5 % 40-54 [facility] Work Phone: Ketones Test strip Ql (U)on 04-25-2022 Ketones Ql (U) 5 mg/dl Negative [facility] Work Phone: Laboratory - Chemistry and C hemistry - challengeon 04-25-2022 ALP [Catalytic activity/Vol] 62 U/L 45-117 [facility] Work Phone: ALT [Catalytic activity/Vol] 25 U/L 16-61 [facility] Work Phone: CO2 [Moles/Vol] 25.0 mmol/L 21.0-32.0 [facility] Work Phone: Cobalamin (Vitamin B12) [Mass/Vol] 1930 pg/mL 211-911 [facility] Work Phone: Globulin (S) [Mass/Vol] 3.6 g/dL 2.2-4.2 [facility] Work Phone: Urea nitrogen/Creatinine [Mass ratio] 19.8 mg/mg 10-20 [facility] Work Phone: Laboratory - Hematology and Cell countson 04-25-2022 Erythrocyte distribution width (RBC) [Entitic vol] 46.3 fL 35.1-43.9 [facility] Work Phone: Erythrocyte distribution width (RBC) [Ratio] 13.6 % 11.6-14.6 [facility] Work Phone: Immature granulocytes/100 WBC (Bld) 0.700 % 0.0-0.9 [facility] Work Phone: Comment on above: IG% - Immature Granu locytes (promyelocytes, myelocytes and metamyelocytes) > 1% indicates that a LEFT SHIFT is Present. MCH (RBC) [Entitic mass] 31.3 pg 27.0-32.0 [facility] Work Phone: Nucleated RBC/100 WBC (Bld) [Ratio] 0 % 0-5 [facility] Work Phone: MCHC Auto (RBC) [Mass/Vol]on 04-25-2022 MCHC (RBC) [Mass/Vol] 33.6 g/dL 32-36 [facility] Work Phone: Mucus LM Ql (Urine sed)on Mucus Ql (Urine sed) 0 SEEN /hpf [facility] Work Phone: Nitrite Test strip Ql (U)on 04-25-2022 Nitrite Ql (U) Negative Negative [facility] Work Phone: No Panel Informationon 04-25 Estimated GFR (MDRD) Amer 87 mL/min >60 [facility] Work Phone: Comment on above: GFR Calc Estimated GFR (MDRD) Non-Af Amer 72 mL/min >60 [facility] Work Phone: Comment on above: Non- GFR Calc Thyroid Stimulating Hormone (TSH) 2.14 uIU/mL 0.358-3.74 [facility] Work Phone: Vitamin D 25-Hydroxy 59.3 ng/mL [facility] Work Phone: Comment on above: Vitamin D 25(OH) Sta tus Range Deficiency <20 ng/mL (50nmol/L) Insufficiency 20 - 30 ng/mL (50 - 75 nmol/L) Sufficiency 30 - 100 ng/mL (75 - 250 nmol/L) Toxicity >100 ng/mL (>250 nmol/L) Platelets bldon 04-25-2022 Platelets (Bld) [#/Vol] 264 10*3/uL 150-450 [facility] Work Phone: Protein Test strip Ql (U)on 04-25-2022 Protein Ql (U) Negative Negative [facility] Work Phone: Serum or plasma albumin walt urement (mass/volume)on 04-25-2022 Albumin [Mass/Vol] 3.7 g/dL 3.2-5.0 [facility] Work Phone: Serum or plasma albumin/glob ulin mass ratioon 04-25-2022 Albumin/Globulin [Mass ratio] 1.0 {ratio} 0.9-2.4 [facility] Work Phone: Serum or plasma calcium walt urement (mass/volume)on 04-25-2022 Calcium [Mass/Vol] 9.1 mg/dL 8.5-10.1 [facility] Work Phone: Serum or plasma cholesterol in HDL measurement (mass/volume)on 04-25-2022 Cholesterol in HDL [Mass/Vol] 43 mg/dL >40 [facility] Work Phone: Comment on above: The drugs N-Acetylcy steine and Metamizole may falsely depress this assay. Reference Range HDL <40 mg/dL Low HDL Cholesterol HDL >or= 60 mg/dL High HDL Cholesterol Serum or plasma cholesterol in VLDL measurement (mass/volume)on 04-25-2022 Cholesterol in VLDL [Mass/Vol] 39 mg/dL 5-40 [facility] Work Phone: Serum or plasma creatinine m easurement (mass/volume)on 04-25-2022 Creatinine [Mass/Vol] 1.06 mg/dL 0.70-1.30 [facility] Work Phone: Comment on above: The validity of the calculated GFR & GFRAA in patients over 70 years has not been determined. Clinical correlation is essential. Serum or plasma folate measu rement (mass/volume)on 04-25-2022 Folate [Mass/Vol] 13.80 ng/mL 3.1-55.4 [facility] Work Phone: Comment on above: Slight Hemolysis, Re sult may be falsely increased. Serum or plasma low density lipoprotein (LDL) cholesterol measurement (mass/volume)on 04-25-2022 Cholesterol in LDL [Mass/Vol] 56 mg/dL 0-130 [facility] Work Phone: Serum or plasma urea nitroge n measurement (mass/volume)on 04-25-2022 Urea nitrogen [Mass/Vol] 21 mg/dL 7-18 [facility] Work Phone: Squamous epithelial cells de tection in urine sediment by light microscopyon 04-25-2022 Epithelial cells.squamous LM Ql (Urine sed) 0 SEEN /hpf 0-5 [facility] Work Phone: Thin prep Papanicolaou smear with manual screeningon 04-25-2022 Thin prep Papanicolaou smear with manual screening 17 U/L 15-37 [facility] Work Phone: Thin prep Papanicolaou smear with manual screening 9 5-15 [facility] Work Phone: Urine blood detectionon -0 RBC Ql (U) Negative Negative [facility] Work Phone: RBC Ql (U) 0-5 SEEN /hpf 0-5 [facility] Work Phone: Urine clarityon 04-25-2022 Clarity (U) Clear Clear [facility] Work Phone: Urine color determinationon 04-25-2022 Color (U) Yellow Yellow [facility] Work Phone: Urine glucose detectionon Glucose Ql (U) Normal mg/dl Normal [facility] Work Phone: Urine leukocyte esterase det ection by dipstickon 04-25-2022 Leukocyte esterase Test strip Ql (U) Negative Negative [facility] Work Phone: Urine pHon 04-25-2022 pH (U) 6.0 [pH] 5.0 - 8.0 [facility] Work Phone: Urine sediment bacteria coun t by microscopy (number/high power field)on 04-25-2022 Bacteria LM.HPF (Urine sed) [#/Area] RARE /hpf None Seen [facility] Work Phone: Urine specific gravity measu rementon 04-25-2022 Specific gravity (U) [Rel density] 1.020 1.002-1.030 [facility] Work Phone: Urobilinogen Auto test strip Ql (U)on 04-25-2022 Urobilinogen Ql (U) 4 mg/dl Normal [facility] Work Phone: Whole blood hemoglobin A1c/t otal hemoglobin ratio (mass fraction)on 04-25-2022 HbA1c (Bld) [Mass fraction] 6.6 % 3.8-5.6 [facility] Work Phone: Comment on above: Normal < 5.7 % Predi abetic 5.7 - 6.4 % Diabetic >or= 6.5 % Please note range changes. Laboratory - Drug toxicology on 04-07-2022 Amphetamines Ql (U) Negative <1000 ng/mL [facility] Work Phone: Benzodiazepines Ql (U) Negative < 200 ng/mL [facility] Work Phone: Cannabinoids Screen Ql (U) Negative < 50 ng/mL [facility] Work Phone: Cocaine Ql (U) Negative < 300 ng/mL [facility] Work Phone: Opiates Ql (U) Negative < 300 ng/mL [facility] Work Phone: No Panel Informationon 04-07 MDMA (Ecstasy) Screen Negative < 500 ng/mL [facility] Work Phone: Miscellaneous Test See comment [facility] Work Phone: Comment on above: [id number] 6+OXYCODONE-B UND (ng/mL) DRUG RESULT SCREEN CUTOFF____ Amphetamines,Urine Negative ng/mL 1000 Amphetamine test includes Amphetamine and Methamphetamine.Barbiturates Negative ng/mL 200Benzodiazepines Negative ng/mL 200Cannabinoid Negative ng/mL 20Cocaine (Metab) Negative ng/mL 300Opiates Negative ng/mL 300 Opiates test includes Codeine, Morphine, Hydromorphone, Hydrocodone. Oxycodone/Oxymorphone,Urine Positive ng/mL 300 Test includes Oxydodone and Oxymorphone. Oxycodone PositiveOxycodone Conf,MS,UR 666 ng/mL 300 Oxymorphone Negative 300 TESTING PERFORMED AT [facility]. ORIGINAL REPORT ON FILE IN LAB CONTAINS ADDITIONAL TEST SITE INFORMATION. Urine Barbiturates Screen Negative < 200 ng/m L [facility] Work Phone: Urine Drug Screen Comment [facility] Work Phone: Comment on above: CONFIRMATORY TESTING [...] Urine Methadone Screen Negative < 300 ng/mL [facility] Work Phone: Urine phencyclidine (PCP) de tectionon 04-07-2022 Phencyclidine Ql (U) Negative < 25 ng/mL [facility] Work Phone: CNOVon 03-29-2022 CNOV Office Visit (SPEMML ) KEVIN GRIFFITH ([id number]) 1945 M Date Time Provider Department 03/29/22 1:30 PM SAKINA RO During your visit today, we recorded the following information about you: Sakina Ro CCC-CHIMNEY REPAIRER 03/29/2022 3:59 PM Signed Episode Visit Count: 1 Therapist That Will Oversee The Plan Of Care: Andrade Start of Care Date: 03/29/22 Onset Date: 11/20/20 Plan of Care Certification Date: 03/29/22 Patient Identified by Name and Date of : Yes [facility] SPEECH and [...] position 20-30 minutes following all oral intake CHIMNEY REPAIRER Recommendations: Swallowing Precautions;Discontinue Speech Therapy Results and [...] MBS (pt reports had MBS done at [place] last year, which pt was told 'he [...] Impaired Pharyng (more content not included)... Normal [facility] Office Visit (SOHAN) KEVIN GRIFFITH ([id number]) 1945 M Date Time Provider Department 03/29/22 12:30 PM JAYLYN NIEVES During your visit today, we recorded the following information about you: Jaylyn Nieves MD 03/29/2022 7:35 PM Signed [facility] Jaylyn Nieves [address] [place] [address] Ron Cooley MD [address] [facility] [address] I had the pleasure of seeing Mr. 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 Started on Sinemet which caused side effects at 6/day. At last visit we tried to taper off it but he experiences return of tremors and confusion at dose of 3/day. Will increase Sinemet (more content not included)... Normal [facility] CNTHERAPYon 03-29-2022 CNTHERAPY OT/PT/Speech Visit (PTMDRG) LAINEYJOSE MIGUELKEVIN Khushbu ([id number]) 1945 M Date Time Provider Department 03/29/22 3:30 PM MAINE MEDEL PTMG Date Time Provider Department Center 03/29/2022 3:30 PM [id number] MEDEL PTMGIACOMO [facility] Reason for Visit: PT Eval [447] Patient Education [91] PT Discharge [752] Primary [...] Take 80 mg by mouth once daily. [facility] CNTHERAPY OT/PT/Speech Visit (OTMMC) KEVIN GRIFFITH ([id number]) 1945 M Date Time Provider Department 03/29/22 2:30 PM HEENA ROMANO [facility] Date Time Provider Department Center 03/29/2022 2:30 PM [id number], DIANDRA [facility] Reason for Visit: OT EVAL [748] OT [...] Take 80 mg by mouth once daily. [facility] 03-23-2022 CNPN Telephone (TOANMDCase) KEVIN GRIFFITH ([id number]) 1945 M Date Time Provider Department 03/23/22 JAYLYN NIEVES During your visit today, we [...] Encounter Status:Closed by BRYANNA HAAS on 03/23/22 [facility] Traci 03-17-2022 CNOV Office Visit (NRMDN) KEVIN GRIFFITH ([id number]) 1945 M Date Time Provider Department 03/17/22 3:00 PM JAYLYN NIEVES During your visit today, we recorded the following information about you: Pulse Blood pressure Weight Height 101/minute 120/77 125.8 kg 1.778 m Jaylyn Nieves MD 03/18/2022 4:12 PM Signed [facility] - FOLLOW UP EVALUATION No referring provider defined for this encounter. Ron Cooley MD [address] [facility] [address] I had the pleasure of seeing Mr. [...] to be helpful Interval History Seen at [facility] for surgical evaluation. SDR was too [...] is be (more content not included)... Normal [facility] Basophil percentageon 2021 Chloride [Moles/Vol] 105 mmol/L 98-107 [facility] Work Phone: Glucose [Mass/Vol] 102 mg/dL 74-106 [facility] Work Phone: Comment on above: Fasting Glucose resu lt from 100 to 125 mg/dL suggests IMPAIRED HOMEOSTASIS per A.D.A. criteria. Potassium [Moles/Vol] 3.5 mmol/L 3.5-5.1 [facility] Work Phone: Sodium [Moles/Vol] 138 mmol/L 136-145 [facility] Work Phone: Laboratory - Chemistry and C hemistry - challengeon 03-10-2022 ALT [Catalytic activity/Vol] 21 U/L 16-61 [facility] Work Phone: CO2 [Moles/Vol] 26.0 mmol/L 21.0-32.0 [facility] Work Phone: Urea nitrogen/Creatinine [Mass ratio] 24.3 mg/mg 10-20 [facility] Work Phone: No Panel Informationon 03-10 Estimated GFR (MDRD) Amer 79 mL/min >60 [facility] Work Phone: Comment on above: GFR Calc Estimated GFR (MDRD) Non-Af Amer 65 mL/min >60 [facility] Work Phone: Comment on above: Non- GFR Calc Serum or plasma calcium walt urement (mass/volume)on 03-10-2022 Calcium [Mass/Vol] 8.8 mg/dL 8.5-10.1 [facility] Work Phone: Serum or plasma creatinine m easurement (mass/volume)on 03-10-2022 Creatinine [Mass/Vol] 1.15 mg/dL 0.70-1.30 [facility] Work Phone: Comment on above: The validity of the calculated GFR & GFRAA in patients over 70 years has not been determined. Clinical correlation is essential. Serum or plasma urea nitroge n measurement (mass/volume)on 03-10-2022 Urea nitrogen [Mass/Vol] 28 mg/dL 7-18 [facility] Work Phone: Thin prep Papanicolaou smear with manual screeningon 03-10-2022 Thin prep Papanicolaou smear with manual screening 21 U/L 15-37 [facility] Work Phone: Thin prep Papanicolaou smear with manual screening 7 5-15 [facility] Work Phone: Whole blood hemoglobin A1c/t otal hemoglobin ratio (mass fraction)on 03-10-2022 HbA1c (Bld) [Mass fraction] 6.5 % 3.8-5.6 [facility] Work Phone: Comment on above: Normal < [...] MonDec 15, 2021 5:24:44 PM EST Normal [facility] Comment on above: Order Comment: Injur y/Trauma or Illness?:Illness/Other How long have you had these symptoms (acute/chronic)?:Acute Reason for exam?:resting tremor, Tremor Type of Exam?:Initial Additional signs and symptoms?:n Basophil percentageon 2020 Chloride [Moles/Vol] 104 mmol/L 98-107 [facility] Work Phone: Glucose [Mass/Vol] 148 mg/dL 74-106 [facility] Work Phone: Comment on above: Fasting Glucose resu lt greater than or equal to 126 mg/dL suggests DIABETES MELLITUS per A.D.A. criteria.Please note revised GLUCOSE reference range effective 2017. Potassium [Moles/Vol] 3.9 mmol/L 3.5-5.1 [facility] Work Phone: Sodium [Moles/Vol] 140 mmol/L 136-145 [facility] Work Phone: Laboratory - Chemistry and C hemistry - challengeon 11-15-2021 CO2 [Moles/Vol] 29.0 mmol/L 21.0-32.0 [facility] Work Phone: Urea nitrogen/Creatinine [Mass ratio] 18.5 mg/mg 10-20 [facility] Work Phone: No Panel Informationon 11-15 Estimated GFR (MDRD) Amer 85 mL/min >60 [facility] Work Phone: Comment on above: GFR Calc Estimated GFR (MDRD) Non-Af Amer 70 mL/min >60 [facility] Work Phone: Comment on above: Non- GFR Calc Serum or plasma calcium walt urement (mass/volume)on 11-15-2021 Calcium [Mass/Vol] 9.0 mg/dL 8.5-10.1 [facility] Work Phone: Serum or plasma creatinine m easurement (mass/volume)on 11-15-2021 Creatinine [Mass/Vol] 1.08 mg/dL 0.70-1.30 [facility] Work Phone: Comment on above: The validity of the calculated GFR & GFRAA in patients over 70 years has not been determined. Clinical correlation is essential. Serum or plasma urea nitroge n measurement (mass/volume)on 11-15-2021 Urea nitrogen [Mass/Vol] 20 mg/dL 7-18 [facility] Work Phone: Thin prep Papanicolaou smear with manual screeningon 11-15-2021 Thin prep Papanicolaou smear with manual screening 7 5-15 [facility] Work Phone: Whole blood hemoglobin A1c/t otal hemoglobin ratio (mass fraction)on 11-15-2021 HbA1c (Bld) [Mass fraction] 6.6 % 3.8-5.6 [facility] Work Phone: Comment on above: Normal < [...] No other mass effect. Patent basal cisterns. [id number] symmetric global volume loss without lobar predominance. [...] MonNov 02, 2021 8:48:26 AM EST Normal [facility] Comment on above: Order Comment: Injur y/Trauma or Illness?:Illness/Other How long have you had these symptoms (acute/chronic)?:Acute Reason for exam?:trmors Type of Exam?:Initial Additional signs and symptoms?:HIFU protocol Glucose,Bedsideon 05-19-2021 Glucose [Mass/Vol] 137 mg/dL High 70-100 [employer] Comment on above: Result Comment: Test performed by glucose meter. Results may be 10%-15% lower than serum/plasma values. (CLIA ID [id number]) Performed By: #### B GLU #### [facility] [address] [place] [id number] OPERATIVE REPORTOrdered By: Scanning on 05-19-2021 [employer] Work Phone: POCT GlucoseOrdered By: Nii Altman on 05-19-2021 Glucose [Mass/Vol] 137 mg/dL High 70 - 100 mg/dL [employer] Work Phone: Comment on above: Test performed by [employer] ucose meter. Results may be 10%-15% lower than serum/plasma values. (CLIA ID [id number]) Interpretation and review of laboratory results Abnormal [employer] Work Phone: Test Performed by [facility], [address] [place] [address] [employer] Work Phone: [employer] Work Phone: ECHO Pharmacological Stress TestOrdered By: Raeann Holland on 05-11-2021 STRESS ECHOCARDIOGRA M Dobutamine PATIENT: Kevin Griffith STUDY DATE: 05/11/2021 : 1945 AGE: 75 HT/WT: 177.8 cm (70 123.2 kg in) (271 lb) GENDER: M BP: 149 / 83 LOCATION: PFI Acquisition PATIENT Outpatient [facility] STATUS: Medical Center *ORDERING PHYSICIAN: * Amalia, *FELLOW: * Wes Montilla MD *SUPERVISING PHYSICIAN: * *RN: Bessie Irwin Diana *READING PHYSICIAN: * Donnell Valdes MD, *BODY DIE MAKER: * Dai Burnette [facility] -- INDICATIONS: Pre-operative. Shortness of breath. [...] was augmented by the addition of hand supervisor chlorine liquefaction. The infusion was terminated after achieving the [...] (84) + + (more content not included)... [employer] Work Phone: Brandyn, [employer] Incoming Cardiology Results From [employer] - 05/11/2021 4:29 PM EDT STRESS ECHOCARDIOGRAM Dobutamine PATIENT: Kevin Griffith STUDY DATE: 05/11/2021 : 1945 AGE: 75 HT/WT: 177.8 cm (70 123.2 kg in) (271 lb) GENDER: M BP: 149 / 83 LOCATION: PFI Acquisition PATIENT Outpatient [facility] STATUS: Medical Center *ORDERING PHYSICIAN: * Amalia, *FELLOW: * Wes Montilla MD *SUPERVISING PHYSICIAN: * *RN: Bessie Irwin Diana *READING PHYSICIAN: * Donnell Valdes MD, *BODY DIE MAKER: * Dai Burnette [facility] -- INDICATIONS: Pre-operative. Shortness of breath. [...] was augmented by the addition of hand supervisor chlorine liquefaction. The infusion was terminated after achieving the [...] an appropriate blo (more content not included)... [employer] Work Phone: [employer] Work Phone: Echo Dobutamine Stress Echo w/wo Conton 05-11-2021 Echo Dobutamine Stress Echo w/wo Cont Patient Name: KEVIN GRIFFITH Ultrasound ACCESSION EXAM DATE/TIME PROCEDURE ORDERING PROVIDER [phone] 05/11/2021 11:00 EDT Echo Dobutamine Stress AWAIS HOLLAND, RAEANN Echo w/wo Cont Reason For Exam (Echo Dobutamine Stress Echo w/wo Cont) pre op testing, abnormal EKG, shortness of breath Report STRESS ECHOCARDIOGRAM Dobutamine PATIENT: Kevin Griffith STUDY DATE: 05/11/2021 : 1945 AGE: 75 HT/WT: 177.8 cm (70 123.2 kg in) (271 lb) GENDER: M BP: 149 / 83 LOCATION: DEONTICS [employer]scan PATIENT Outpatient [facility] STATUS: Medical Center *ORDERING PHYSICIAN: * Amalia, *FELLOW: * Wes Montilla MD *SUPERVISING PHYSICIAN: * *RN: Bessie Irwin Diana *READING PHYSICIAN: * Donnell Valdes MD, *BODY DIE MAKER: * Dai Burnette [facility] -- INDICATIONS: Pre-operative. Shortness of breath. [...] was augmented by the addition of hand supervisor chlorine liquefaction. The infusion was terminated after achieving the [...] --+ +-- (more content not included)... Normal [facility] CBCOrdered By: Raeann murillo on 05-05-2021 Hematocrit (Bld) [Volume fraction] 46.8 % 40.0 - 52.0 % [facility] Work Phone: Hemoglobin.gastrointestin al spec 1 Ql (Stl) 15.9 g/dL 13.0 - 18.0 g/dL [facility] Work Phone: () Interpretation and review of laboratory results Abnormal [facility] Work Phone: ) MCH (RBC) [Entitic mass] 31.9 pg 26. 0 - 34.0 pg [facility] Work Phone: () MCHC (RBC) [Mass/Vol] 34.0 % 32.0 - 36.0 % [facility] Work Phone: MCV (RBC) [Entitic vol] 94.0 fL 80.0 - 98.0 fL [facility] Work Phone: Platelet distribution width (Bld) [Ratio] 13.6 % 11.5 - 14.5 % [facility] Work Phone: () Platelet mean volume (Bld) [Entitic vol] 9.0 fL 7.4 - 10.4 fL [facility] Work Phone: () Platelets (Bld) [#/Vol] 287 10*3/uL 140 - 440 10*3/uL [facility] Work Phone: () RBC (Bld) [#/Vol] 4.98 10*6/uL 4.40 - 5.9 0 10*6/uL [facility] Work Phone: () 222 WBC (Bld) [#/Vol] 11.0 10*3/uL High 3.6 - 10.7 10*3/uL [facility] Work Phone: () Test Performed by [facility], [address] [place] [address] [facility] Work Phone: () [facility] Work Phone: () Comp Panel with Mg Reflexon 05-05-2021 ALP [Catalytic activity/Vol] 74 U/L Normal 38-126 [facility] Comment on above: Performed By: #### C MP3M, HEMOG #### [facility] [address] [place], [place] ALT [Catalytic activity/Vol] 38 U/L Normal 0-49 [facility] Comment on above: Result Comment: The ALT test is performed by an updated assay method. Please note that the reference intervals have been changed and are now sex specific. Performed By: #### C MP3M, HEMOG #### [facility] [address], [place] AST [Catalytic activity/Vol] 28 U/L Normal 15-46 [facility] Comment on above: Performed By: #### C MP3M, HEMOG #### [facility] [address], [place] Calcium [Mass/Vol] 9.6 mg/dL Normal 8.4-10.4 [facility] Comment on above: Performed By: #### C MP3M, HEMOG #### [facility] [address], [place] Glucose [Mass/Vol] 55 mg/dL Low 70-100 [facility] Comment on above: Performed By: #### C MP3M, HEMOG #### [facility] [address], [place] Protein [Mass/Vol] 8.1 g/dL Normal 6.3-8.2 [facility] Comment on above: Performed By: #### C MP3M, HEMOG #### [facility] [address], [place] Urea nitrogen [Mass/Vol] 23 mg/dL High 7-20 [facility] Comment on above: Performed By: #### C MP3M, HEMOG #### [facility] [address], [place] Anion gap [Moles/Vol] 9 mmol/L Normal 3-13 [facility] Comment on above: Performed By: #### C MP3M, HEMOG #### [facility] [address], [place] Bilirubin [Mass/Vol] 1.3 mg/dL Normal 0.2-1.3 [facility] Comment on above: Performed By: #### C MP3M, HEMOG #### [facility] [address], [place] CO2 [Moles/Vol] 30 mmol/L Normal 22-30 [facility] Comment on above: Performed By: #### C MP3M, HEMOG #### [facility] [address], [place] Creatinine [Mass/Vol] 1.02 mg/dL Normal 0.52-1.25 [facility] Comment on above: Performed By: #### C MP3M, HEMOG #### [place] [address] [place], [place] GFR/1.73 sq M.predicted among blacks MDRD (S/P/Bld) [Vol rate/Area] 81.9 mL/min/{1.73_m2} Normal >60 [facility] Comment on above: Performed By: #### C MP3M, HEMOG #### [facility] [address], [place] GFR/1.73 sq M.predicted among non-blacks MDRD (S/P/Bld) [Vol rate/Area] 70.7 mL/min/{1.73_m2} Normal >60 [facility] Comment on above: Result Comment: KDIG O [...] Performed By: #### C MP3M, HEMOG #### [facility] [address] [place] [address] Albumin [Mass/Vol] 4.8 g/dL Normal 3.5-5.0 [facility] Comment on above: Performed By: #### C MP3M, HEMOG #### [facility] [address] [place] [address] Chloride [Moles/Vol] 101 mmol/L Normal 98-107 [facility] Comment on above: Performed By: #### C MP3M, HEMOG #### [facility] [address] [place] [address] Potassium [Moles/Vol] 3.9 mmol/L Normal 3.5-5.1 [facility] Comment on above: Performed By: #### C MP3M, HEMOG #### [facility] [address] [place] [address] Sodium [Moles/Vol] 140 mmol/L Normal 135-145 [facility] Comment on above: Performed By: #### C MP3M, HEMOG #### [facility] [address] [place] [address] Comprehensive Metabolic Pane l w/ Reflex to MGOrdered By: Reaann Holland on 05-05-2021 Albumin [Mass/Vol] 4.8 g/dL 3.5 - 5.0 g/dL [facility] Work Phone: [phone] ALP (Bld) [Catalytic activity/Vol] 74 U/L 38 - 126 U/L [facility] Work Phone: ALT [Catalytic activity/Vol] 38 U/L 0 - 49 U/L [facility] Work Phone: Comment on above: The ALT test is perf ormed by an updated assay method. Please note that the reference intervals have been changed and are now sex specific. Anion gap [Moles/Vol] 9 mmol/L 3 - 13 mmol/L [facility] Work Phone: AST [Catalytic activity/Vol] 28 U/L 15 - 46 U/L [facility] Work Phone: Bilirubin [Mass/Vol] 1.3 mg/dL 0.2 - 1 .3 mg/dL [facility] Work Phone: [phone] Calcium [Mass/Vol] 9.6 mg/dL 8.4 - 10. 4 mg/dL [facility] Work Phone: [phone] Chloride [Moles/Vol] 101 mmol/L 98 - 10 7 mmol/L [facility] Work Phone: [phone] CO2 [Moles/Vol] 30 mmol/L 22 - 30 mmol/L [facility] Work Phone: [phone] Creatinine [Mass/Vol] 1.02 mg/dL 0.52 - 1.25 mg/dL [facility] Work Phone: [phone] EGFR IF NonAfrican Tristanian 70.7 mL/min >60 [facility] Work Phone: [phone] Comment on above: KDIGO guidelines pro vide [...] fraction] 8.1 g/dL 6.3 - 8.2 g/dL [facility] Work Phone: GFR/1.73 sq M.predicted among blacks MDRD (S/P/Bld) [Vol rate/Area] 81.9 mL/min/{1.73_m2} >60 [facility] Work Phone: [phone] Glucose [Mass/Vol] 55 mg/dL Low 70 - 100 mg/dL [facility] Work Phone: [phone] Interpretation and review of laboratory results Abnormal [facility] Work Phone: [phone] Potassium [Moles/Vol] 3.9 mmol/L 3.5 - 5.1 mmol/L [facility] Work Phone: [phone] Sodium [Moles/Vol] 140 mmol/L 135 - 145 mmol/L [facility] Work Phone: [phone] Urea nitrogen (BldV) [Mass/Vol] 23 mg/dL High 7 - 20 mg/dL [facility] Work Phone: [phone] Test Performed by [facility], [address] [place] [address] [facility] Work Phone: [phone] [facility] Work Phone: [phone] Hemogramon 05-05-2021 Erythrocyte distribution width (RBC) [Ratio] 13.6 % Normal 11.5-14.5 [facility] Comment on above: Performed By: #### C MP3M, HEMOG #### [address] Hematocrit (Bld) [Volume fraction] 46.8 % Normal 40.0-52.0 [facility] Comment on above: Performed By: #### C MP3M, HEMOG #### [address] Hemoglobin (Bld) [Mass/Vol] 15.9 g/dL Normal 13.0-18.0 [facility] Comment on above: Performed By: #### C MP3M, HEMOG #### [address] [address] [place], [place] MCH (RBC) [Entitic mass] 31.9 pg Normal 26.0-34.0 [facility] Comment on above: Performed By: #### C MP3M, HEMOG #### [address] MCHC 34.0 % Normal 32.0-36.0 [facility] Comment on above: Performed By: #### C MP3M, HEMOG #### [address] [address] [place] [address] MCV (RBC) [Entitic vol] 94.0 fL Normal 80.0-98.0 [facility] Comment on above: Performed By: #### C MP3M, HEMOG #### [address] [address] [place], [place] Platelet mean volume (Bld) [Entitic vol] 9.0 fL Normal 7.4-10.4 [facility] Comment on above: Performed By: #### C MP3M, HEMOG #### [address] [address] [place] [address] Platelets (Bld) [#/Vol] 287 10*3/uL Normal 140-440 [facility] Comment on above: Performed By: #### C MP3M, HEMOG #### [address] [address] [place], [place] RBC (Bld) [#/Vol] 4.98 10*6/uL Normal 4.40-5.90 [facility] Comment on above: Performed By: #### C MP3M, HEMOG #### [address] [address] [place], [place] WBC (Bld) [#/Vol] 11.0 10*3/uL High 3.6-10.7 [facility] Comment on above: Performed By: #### C MP3M, HEMOG #### [address] [address] [place], [place] TS GELon 05-05-2021 TS GEL ABO Group: A Rh, Gel: POS Antibody Screen Gel: NEG Normal [facility] Comment on above: Performed By: #### T SGL #### [facility] TYPE AND SCREENOrdered By: Khushbu Holland on 05-05-2021 ABO Grouping A [facility] Work Phone: Rh Type Positive [facility] Work Phone: Test Performed by [facility], [facility] [place] [address] [facility] Work Phone: [facility] Work Phone: Otheron 08-16-2006 CONVERTED ELECTRONIC SIGNATURE KENNY SIMPSON M.D., PATHOLOGIST (Electronic signature on file) Final Signed Out: 08/16/2006 12:36 [facility] CONVERTED FINAL DIAGNOSIS LEFT KNEE, EXC ISION - DEGENERATIVE CHANGES OF ARTICULAR CARTILAGE CONSISTENT WITH OSTEOARTHRITIS. [facility] CONVERTED ORDERING PROVIDER Ordering Provider: WYATT NOBLE [facility] Otheron 02-06-2006 CONVERTED ELECTRONIC SIGNATURE BILL MELTON M.D., PATHOLOGIST (Electronic signature on file) Final Signed Out: 02/06/2006 15:13 [facility] CONVERTED FINAL DIAGNOSIS LEFT KNEE, EXC ISION - FIBROCARTILAGE WITH DEGENERATIVE CHANGES. SYNOVIUM WITH NONSPECIFIC REACTIVE CHANGES. [facility] CONVERTED ORDERING PROVIDER Ordering Provider: WYATT NOBLE [facility] Vital Signs Date Time Vital Sign Value Performing Clinician Facility 04-13-2025 22:27-0400 Diastolic blood pressure 75 mm[Hg] FINA Powell MD Work Phone: [facility] 04-13-2025 22:27-0400 Heart rate 77 /min FINA Powell MD Work Phone: [facility] 04-13-2025 22:27-0400 Respiratory rate 20 /min FINA Powell MD Work Phone: [facility] 04-13-2025 22:27-0400 SaO2% (BldA) [Mass fraction] 97 % FINA Powell MD Work Phone: [facility] 04-13-2025 22:27-0400 Systolic blood pressure 133 mm[Hg] FINA Powell MD Work Phone: [facility] 04-13-2025 20:40-0400 Body temperature 98.01 [degF] FINA Powell MD Work Phone: [facility] 04-09-2025 13:13-0400 Body temperature 96.8 [degF] Dr. Ron Cooley MD Work Phone: [facility] 04-09-2025 13:13-0400 Diastolic blood pressure 65 mm[Hg] Dr. Ron Cooley MD Work Phone: [facility] 04-09-2025 13:13-0400 Heart rate 76 /min Dr. Ron Cooley MD Work Phone: [facility] 04-09-2025 13:13-0400 Respiratory rate 18 /min Dr. Ron Cooley MD Work Phone: [facility] 04-09-2025 13:13-0400 SaO2% (BldA) [Mass fraction] 98 % Dr. Ron Cooley MD Work Phone: [facility] 04-09-2025 13:13-0400 Systolic blood pressure 145 mm[Hg] Dr. Ron Cooley MD Work Phone: 4(959)466-532155 [place] [address] 04-09-2025 11:18-0400 Body height [address] Ron Cooley MD Work Phone: 6(830)990-343230 [place] [address] 04-09-2025 11:18-0400 Body mass index (BMI) [Ratio] 35.8 kg/m2 Dr. Ron Cooley MD Work Phone: 5(518)685-769830 [place] [address] 04-09-2025 11:18-0400 Body weight 113.[address] Ron Cooley MD Work Phone: 2(205)860-177555 [place] [address] 03-20-2025 16:23-0400 Diastolic blood pressure 78 mm[Hg] Dr. Ron Cooley MD Work Phone: 7(647)851-868730 [place] [address] 03-20-2025 16:23-0400 Systolic blood pressure 164 mm[Hg] Dr. Ron Cooley MD Work Phone: 8(197)219-777430 [place] [address] 03-20-2025 15:16-0400 Body height 177.[address] Ron Cooley MD Work Phone: 5(731)663-969152 [address] 03-20-2025 15:16-0400 Body mass index (BMI) [Ratio] 34.9 kg/m2 Dr. Ron Cooley MD Work Phone: 1(260)941-256530 [place] [address] 03-20-2025 15:16-0400 Body temperature 98.2 [degF] Dr. Ron Cooley MD Work Phone: 4(724)906-174555 [place] [address] 03-20-2025 15:16-0400 Body weight 110.[address] Ron Cooley MD Work Phone: 5(771)224-213352 [address] 03-20-2025 15:16-0400 Diastolic blood pressure 72 mm[Hg] Dr. Ron Cooley MD Work Phone: [facility] 03-20-2025 15:16-0400 Heart rate 86 /min Dr. Ron Cooley MD Work Phone: 7(310)977-899855 [place] [address] 03-20-2025 15:16-0400 Respiratory rate 15 /min Dr. Ron Cooley MD Work Phone: 3(713)259-663655 [place] [address] 03-20-2025 15:16-0400 SaO2% (BldA) [Mass fraction] 95 % Dr. Ron Cooley MD Work Phone: 1(251)694-737430 [place] [address] 03-20-2025 15:16-0400 Systolic blood pressure 134 mm[Hg] Dr. Ron Cooley MD Work Phone: 9(947)552-473430 [place] [address] 02-14-2025 21:12-0400 Body height 177.[address] Ron Cooley MD Work Phone: 1(329)215-579030 [place] [address] 02-14-2025 21:12-0400 Body temperature 97.3 [degF] Dr. Ron Cooley MD Work Phone: 0(176)554-118930 [place] [address] 02-14-2025 21:12-0400 Diastolic blood pressure 60 mm[Hg] Dr. Ron Cooley MD Work Phone: 9(752)337-863330 [place] [address] 02-14-2025 21:12-0400 Heart rate 93 /min Dr. Ron Cooley MD Work Phone: 0(666)623-379955 [place] [address] 02-14-2025 21:12-0400 Respiratory rate 18 /min Dr. Ron Cooley MD Work Phone: 0(914)317-220652 [address] 02-14-2025 21:12-0400 SaO2% (BldA) [Mass fraction] 92 % Dr. Ron Cooley MD Work Phone: 8(865)835-864555 [place] [address] 02-14-2025 21:12-0400 Systolic blood pressure 137 mm[Hg] Dr. Ron Cooley MD Work Phone: 5(606)223-734952 [address] 02-06-2025 14:25-0400 Diastolic blood pressure 64 mm[Hg] Dr. Ron Cooley MD Work Phone: [facility] 02-06-2025 14:25-0400 Systolic blood pressure 116 mm[Hg] Dr. Ron Cooley MD Work Phone: [facility] 02-06-2025 12:56-0400 Body temperature 97.8 [degF] Dr. Ron Cooley MD Work Phone: 4(284)418-238755 [place] [address] 02-06-2025 12:56-0400 Body weight 110.[address] Ron Cooley MD Work Phone: 9(819)748-989055 [place] [address] 02-06-2025 12:56-0400 Heart rate 82 /min Dr. Ron Cooley MD Work Phone: 5(846)158-929230 [place] [address] 02-06-2025 12:56-0400 Respiratory rate 17 /min Dr. Ron Cooley MD Work Phone: 0(611)611-341055 [place] [address] 02-06-2025 12:56-0400 SaO2% (BldA) [Mass fraction] 95 % Dr. Ron Cooley MD Work Phone: 7(855)836-237955 [place] [address] 12-10-2024 14:30-0500 Diastolic blood pressure 70 mm[Hg] Dr. Ron Cooley MD Work Phone: 7(432)984-377255 [place] [address] 12-10-2024 14:30-0500 Systolic blood pressure 130 mm[Hg] Dr. Ron Cooley MD Work Phone: [facility] 12-10-2024 10:36-0500 Body height 177.[address] Ron Cooley MD Work Phone: 2(614)119-993952 [address] 12-10-2024 10:36-0500 Body mass index (BMI) [Ratio] 34.7 kg/m2 Dr. Ron Cooley MD Work Phone: 0(627)078-381455 [place] [address] 12-10-2024 10:36-0500 Body temperature 97.7 [degF] Dr. Ron Cooley MD Work Phone: [facility] 12-10-2024 10:36-0500 Body weight 109.[address] Ron Cooley MD Work Phone: [facility] 12-10-2024 10:36-0500 Heart rate 77 /min Dr. Ron Cooley MD Work Phone: [facility] 12-10-2024 10:36-0500 Respiratory rate 14 /min Dr. Ron Cooley MD Work Phone: [facility] 12-10-2024 10:36-0500 SaO2% (BldA) [Mass fraction] 97 % Dr. Ron Cooley MD Work Phone: [facility] 12-05-2024 19:35-0500 Body temperature 98 [degF] Dr. Ron Cooley MD Work Phone: 5(177)922-439255 [place] [address] 12-05-2024 19:35-0500 Diastolic blood pressure 75 mm[Hg] Dr. Ron Cooley MD Work Phone: 9(762)194-010655 [place] [address] 12-05-2024 19:35-0500 Heart rate 67 /min Dr. Ron Cooley MD Work Phone: [facility] 12-05-2024 19:35-0500 Respiratory rate 18 /min Dr. Ron Cooley MD Work Phone: [facility] 12-05-2024 19:35-0500 SaO2% (BldA) [Mass fraction] 97 % Dr. Ron Cooley MD Work Phone: [facility] 12-05-2024 19:35-0500 Systolic blood pressure 118 mm[Hg] Dr. Ron Cooley MD Work Phone: [facility] 12-05-2024 17:15-0500 Body mass index (BMI) [Ratio] 34.5 kg/m2 Dr. Ron Cooley MD Work Phone: [facility] 12-05-2024 17:15-0500 Body weight 109.[address] Ron Cooley MD Work Phone: [facility] 10-12-2024 13:02-0500 Body temperature 98.2 [degF] Dr. Ron Cooley MD Work Phone: [facility] 10-12-2024 13:02-0500 Diastolic blood pressure 84 mm[Hg] Dr. Ron Cooley MD Work Phone: 6(461)580-539455 [place] [address] 10-12-2024 13:02-0500 Heart rate 78 /min Dr. Ron Cooley MD Work Phone: [facility] 10-12-2024 13:02-0500 Respiratory rate 16 /min Dr. oRn Cooley MD Work Phone: 7(318)346-848255 [place] [address] 10-12-2024 13:02-0500 SaO2% (BldA) [Mass fraction] 95 % Dr. Ron Cooley MD Work Phone: 0(850)219-340855 [place] [address] 10-12-2024 13:02-0500 Systolic blood pressure 121 mm[Hg] Dr. Ron Cooley MD Work Phone: [facility] 10-12-2024 11:16-0500 Body mass index (BMI) [Ratio] 35.6 kg/m2 Dr. Ron Cooley MD Work Phone: [facility] 10-12-2024 11:16-0500 Body weight 112.[address] Ron Cooley MD Work Phone: [facility] 03-25-2024 14:24-0400 Body height 177.[address] Ron Cooley Work Phone: [facility] 03-25-2024 14:24-0400 Body mass index (BMI) [Ratio] 36.3 kg/m2 Dr. Ron Cooley Work Phone: [facility] 03-25-2024 14:24-0400 Body temperature 98 [degF] Dr. Ron Cooley Work Phone: [facility] 03-25-2024 14:24-0400 Body weight 114.[address] Ron Cooley Work Phone: [facility] 03-25-2024 14:24-0400 Diastolic blood pressure 58 mm[Hg] Dr. Ron Cooley Work Phone: [facility] 03-25-2024 14:24-0400 Heart rate 78 /min Dr. Ron Cooley Work Phone: [facility] 03-25-2024 14:24-0400 Respiratory rate 17 /min Dr. Ron Cooley Work Phone: [facility] 03-25-2024 14:24-0400 SaO2% (BldA) [Mass fraction] 94 % Dr. Ron Cooley Work Phone: [facility] 03-25-2024 14:24-0400 Systolic blood pressure 124 mm[Hg] Dr. Ron Cooley Work Phone: [facility] 11-23-2023 14:02-0500 Body height 177.[address] Ron Cooley Work Phone: [facility] 11-23-2023 14:02-0500 Body mass index (BMI) [Ratio] 37 kg/m2 Dr. Ron Cooley Work Phone: [facility] 11-23-2023 14:02-0500 Body temperature 97.8 [degF] Dr. Ron Cooley Work Phone: [facility] 11-23-2023 14:02-0500 Body weight 117.[address] Ron Cooley Work Phone: [facility] 11-23-2023 14:02-0500 Diastolic blood pressure 84 mm[Hg] Dr. Ron Cooley Work Phone: [facility] 11-23-2023 14:02-0500 Heart rate 75 /min Dr. Ron Cooley Work Phone: [facility] 11-23-2023 14:02-0500 Respiratory rate 17 /min Dr. Ron Cooley Work Phone: [facility] 11-23-2023 14:02-0500 SaO2% (BldA) [Mass fraction] 93 % Dr. Ron Cooley Work Phone: [facility] 11-23-2023 14:02-0500 Systolic blood pressure 112 mm[Hg] Dr. Ron Cooley Work Phone: [facility] 08-07-2023 14:26-0400 Body height 177.[address] Ron Cooley Work Phone: [facility] 08-07-2023 14:26-0400 Body mass index (BMI) [Ratio] 38 kg/m2 Dr. Ron Cooley Work Phone: [facility] 08-07-2023 14:26-0400 Body temperature 98.4 [degF] Dr. Ron Cooley Work Phone: 7(841)886-664455 [place] [address] 08-07-2023 14:26-0400 Body weight 120.[address] Ron Cooley Work Phone: [facility] 08-07-2023 14:26-0400 Diastolic blood pressure 88 mm[Hg] Dr. Ron Cooley Work Phone: [facility] 08-07-2023 14:26-0400 Heart rate 74 /min Dr. Ron Cooley Work Phone: [facility] 08-07-2023 14:26-0400 Respiratory rate 17 /min Dr. Ron Cooley Work Phone: [facility] 08-07-2023 14:26-0400 SaO2% (BldA) [Mass fraction] 96 % Dr. Ron Cooley Work Phone: [facility] 08-07-2023 14:26-0400 Systolic blood pressure 138 mm[Hg] Dr. Ron Cooley Work Phone: [facility] 04-12-2023 10:15-0400 Body height 177.[address] Ron Cooley Work Phone: [facility] 04-12-2023 10:15-0400 Body mass index (BMI) [Ratio] 37 kg/m2 Dr. Ron Cooley Work Phone: [facility] 04-12-2023 10:15-0400 Body weight 117.[address] Ron Cooley Work Phone: [facility] 04-12-2023 10:15-0400 Diastolic blood pressure 70 mm[Hg] Dr. Ron Cooley Work Phone: [facility] 04-12-2023 10:15-0400 Heart rate 60 /min Dr. Ron Cooley Work Phone: [facility] 04-12-2023 10:15-0400 Respiratory rate 18 /min Dr. Ron Cooley Work Phone: [facility] 04-12-2023 10:15-0400 Systolic blood pressure 119 mm[Hg] Dr. Ron Cooley Work Phone: [facility] 04-11-2023 21:17-0400 Diastolic blood pressure 74 mm[Hg] Dr. Ron Cooley Work Phone: [facility] 04-11-2023 21:17-0400 Systolic blood pressure 124 mm[Hg] Dr. Ron Cooley Work Phone: [facility] 04-11-2023 21:16-0400 Heart rate 61 /min Dr. Ron Cooley Work Phone: [facility] 04-11-2023 09:55-0400 Body mass index (BMI) [Ratio] 37.3 kg/m2 Dr. Ron Cooley Work Phone: [facility] 04-11-2023 09:55-0400 Body temperature 97.8 [degF] Dr. Ron Cooley Work Phone: [facility] 04-11-2023 09:55-0400 Body weight 118.[address] Ron Cooley Work Phone: [facility] 04-11-2023 09:55-0400 Diastolic blood pressure 66 mm[Hg] Dr. Ron Cooley Work Phone: [facility] 04-11-2023 09:55-0400 Heart rate 70 /min Dr. Ron Cooley Work Phone: [facility] 04-11-2023 09:55-0400 Respiratory rate 17 /min Dr. Ron Cooley Work Phone: [facility] 04-11-2023 09:55-0400 SaO2% (BldA) [Mass fraction] 98 % Dr. Ron Cooley Work Phone: [facility] 04-11-2023 09:55-0400 Systolic blood pressure 140 mm[Hg] Dr. Ron Cooley Work Phone: [facility] 02-11-2023 12:46-0400 Body height 177.8 cm [facility] 02-11-2023 12:46-0400 Body mass index (BMI) [Ratio] 36.8 kg/m2 [facility] 02-11-2023 12:46-0400 Body temperature 97 [degF] [facility] 02-11-2023 12:46-0400 Body weight 116.52 kg [facility] 02-11-2023 12:46-0400 Diastolic blood pressure 68 mm[Hg] [facility] 02-11-2023 12:46-0400 Heart rate 82 /min [facility] 02-11-2023 12:46-0400 Respiratory rate 18 /min [facility] 02-11-2023 12:46-0400 SaO2% (BldA) [Mass fraction] 97 % [facility] 02-11-2023 12:46-0400 Systolic blood pressure 149 mm[Hg] [facility] 12-12-2022 13:47-0500 Body height 177.8 cm Leni Ruiz APRN.[employer] Work Phone: [facility] 12-12-2022 13:47-0500 Body weight 118.3 kg Leni Ruiz APRN.[employer] Work Phone: [facility] 12-12-2022 13:47-0500 SaO2% (BldA) [Mass fraction] 96 % Leni Ruiz APRN.CNP Work Phone: [facility] 08-04-2022 13:56-0400 Diastolic blood pressure 86 mm[Hg] Jaylyn Nieves MD Work Phone: [facility] 08-04-2022 13:56-0400 Heart rate 107 /min Jaylyn Nieves MD Work Phone: [facility] 08-04-2022 13:56-0400 Respiratory rate 16 /min Jaylyn Nieves MD Work Phone: [facility] 08-04-2022 13:56-0400 SaO2% (BldA) [Mass fraction] 95 % Jaylyn Nieves MD Work Phone: [facility] 08-04-2022 13:56-0400 Systolic blood pressure 109 mm[Hg] Jaylyn Nieves MD Work Phone: [facility] 04-12-2022 08:46-0400 Body height 177.[address] Patricia Mcgowan Work Phone: [facility] Work Phone: 04-12-2022 08:46-0400 Body mass index (BMI) [Ratio] 38.4 kg/m2 Dr. Patricia Mcgowan Work Phone: [facility] Work Phone: 04-12-2022 08:46-0400 Body weight 121.[address] Patricia Mcgowan Work Phone: [facility] Work Phone: 04-12-2022 08:46-0400 Diastolic blood pressure 71 mm[Hg] Dr. Patricia Mcgowan Work Phone: [facility] Work Phone: 04-12-2022 08:46-0400 Heart rate 86 /min Dr. Patricia Mcgowan Work Phone: [facility] Work Phone: 04-12-2022 08:46-0400 Respiratory rate 16 /min Dr. Patricia Mcgowan Work Phone: [facility] Work Phone: 04-12-2022 08:46-0400 SaO2% (BldA) [Mass fraction] 97 % Dr. Patricia Mcgowan Work Phone: [facility] Work Phone: 04-12-2022 08:46-0400 Systolic blood pressure 113 mm[Hg] Dr. Patricia Mcgowan Work Phone: [facility] Work Phone: 04-12-2022 08:46-0400 Body height 177.[address] Patricia Mcgowan Work Phone: [facility] Work Phone: 04-12-2022 08:46-0400 Body mass index (BMI) [Ratio] 38.4 kg/m2 Dr. Patricia Mcgowan Work Phone: [facility] Work Phone: 04-12-2022 08:46-0400 Body weight 121.[address] Patricia Mcgowan Work Phone: [facility] Work Phone: 04-12-2022 08:46-0400 Diastolic blood pressure 71 mm[Hg] Dr. Patricia Mcgowan Work Phone: [facility] Work Phone: 04-12-2022 08:46-0400 Heart rate 86 /min Dr. Patricia Mcgowan Work Phone: [facility] Work Phone: 04-12-2022 08:46-0400 Respiratory rate 16 /min Dr. Patricia Mcgowan Work Phone: [facility] Work Phone: 04-12-2022 08:46-0400 SaO2% (BldA) [Mass fraction] 97 % Dr. Patricia Mcgowan Work Phone: [facility] Work Phone: 04-12-2022 08:46-0400 Systolic blood pressure 113 mm[Hg] Dr. Patricia Mcgowan Work Phone: [facility] Work Phone: 03-29-2022 12:09-0400 SaO2% (BldA) [Mass fraction] 98 % Jaylyn Nieves MD Work Phone: [facility] 03-17-2022 15:50-0400 Diastolic blood pressure 77 mm[Hg] Jaylyn Nieves MD Work Phone: [facility] 03-17-2022 15:50-0400 Systolic blood pressure 120 mm[Hg] Jaylyn Nieves MD Work Phone: [facility] 03-17-2022 14:51-0400 Body height 177.8 cm Jaylyn Nieves MD Work Phone: [facility] 03-17-2022 14:51-0400 Body weight 125.76 kg Jaylyn Nieves MD Work Phone: [facility] 03-17-2022 14:51-0400 Heart rate 101 /min Jaylyn Nieves MD Work Phone: [facility] 03-17-2022 14:51-0400 SaO2% (BldA) [Mass fraction] 98 % Jaylyn Nieves MD Work Phone: [facility] 01-28-2022 02:11-0500 Diastolic blood pressure 89 mm[Hg] Dr. Patricia Mcgowan Work Phone: [facility] Work Phone: 01-28-2022 02:11-0500 Heart rate 96 /min Dr. Patricia Mcgowan Work Phone: [facility] Work Phone: 01-28-2022 02:11-0500 Respiratory rate 18 /min Dr. Patricia Mcgowan Work Phone: [facility] Work Phone: 01-28-2022 02:11-0500 SaO2% (BldA) [Mass fraction] 94 % Dr. Patricia Mcgowan Work Phone: [facility] Work Phone: 01-28-2022 02:11-0500 Systolic blood pressure 158 mm[Hg] Dr. Patricia Mcgowan Work Phone: [facility] Work Phone: 01-28-2022 01:22-0500 Body mass index (BMI) [Ratio] 399.4 kg/m2 Dr. Patricia Mcgowan Work Phone: [facility] Work Phone: 01-28-2022 01:22-0500 Body temperature 97.6 [degF] Dr. Patricia Mcgowan Work Phone: [facility] Work Phone: 01-28-2022 01:22-0500 Body weight [address] Patricia Mcgowan Work Phone: [facility] Work Phone: 01-28-2022 01:11-0500 Diastolic blood pressure 89 mm[Hg] [facility] Work Phone: 01-28-2022 01:11-0500 Heart rate 96 /min [facility] Work Phone: 01-28-2022 01:11-0500 Respiratory rate 18 /min [facility] Work Phone: 01-28-2022 01:11-0500 SaO2% (BldA) [Mass fraction] 94 % [facility] Work Phone: 01-28-2022 01:11-0500 Systolic blood pressure 158 mm[Hg] [facility] Work Phone: 01-28-2022 00:22-0500 Body height 177.8 cm [facility] Work Phone: 01-28-2022 00:22-0500 Body mass index (BMI) [Ratio] 399.4 kg/m2 [facility] Work Phone: 01-28-2022 00:22-0500 Body temperature 97.6 [degF] [facility] Work Phone: 01-28-2022 00:22-0500 Body weight 1263 kg [facility] Work Phone: 10-05-2021 11:00-0500 Diastolic blood pressure 63 mm[Hg] Barb Morton MD Work Phone: [facility] Comment on above: Auto 10-05-2021 11:00-0500 Heart rate 99 /min Barb Morton MD Work Phone: [facility] 10-05-2021 11:00-0500 Systolic blood pressure 91 mm[Hg] Barb Morton MD Work Phone: [facility] Comment on above: Auto 10-05-2021 10:45-0500 Body weight 116.57 kg Barb Morton MD Work Phone: [facility] 05-19-2021 10:00-0400 Diastolic blood pressure 70 mm[Hg] Nii Altman MD Work Phone: [facility] Work Phone: 05-19-2021 10:00-0400 Heart rate 91 /min Nii Altman MD Work Phone: [facility] Work Phone: 05-19-2021 10:00-0400 Respiratory rate 15 /min Nii Altman MD Work Phone: [facility] Work Phone: 05-19-2021 10:00-0400 SaO2% (BldA) [Mass fraction] 96 % Nii Altman MD Work Phone: [facility] Work Phone: 05-19-2021 10:00-0400 Systolic blood pressure [...] Body mass index (BMI) [Ratio] 38.88 kg/m2 Raeann Amalia ELECTRONICS TEACHER - FITNESS CLUB MANAGER Work Phone: [facility] Work Phone: 05-11-2021 09:45-0400 Body weight 122.92 kg Raeann Amalia ELECTRONICS TEACHER - [employer] CLUB MANAGER Work Phone: [facility] Work Phone: Comment on above: per medical record 05-05-2021 10:22-0400 Body temperature 97.3 [degF] Nii Altman MD Work Phone: [facility] Work Phone: 05-05-2021 10:22-0400 Diastolic blood pressure 82 mm[Hg] Nii Altman MD Work Phone: [facility] Work Phone: 05-05-2021 10:22-0400 Heart rate 74 /min Nii Altman MD Work Phone: [facility] Work Phone: 05-05-2021 10:22-0400 Respiratory rate 15 /min Nii Altman MD Work Phone: [facility] Work Phone: 05-05-2021 10:22-0400 SaO2% (BldA) [Mass fraction] 97 % Nii Altman MD Work Phone: [facility] Work Phone: 05-05-2021 10:22-0400 Systolic blood pressure 158 mm[Hg] Nii Altman MD Work Phone: [facility] Work Phone: 05-05-2021 10:21-0400 Body height 177.8 cm Nii Altman MD Work Phone: [facility] Work Phone: 05-05-2021 10:21-0400 Body mass index (BMI) [Ratio] 38.88 kg/m2 Nii Altman MD Work Phone: [facility] Work Phone: 05-05-2021 10:21-0400 Body weight 122.92 kg Nii Altman MD Work Phone: [facility] Work Phone: Encounters Encounter Date Encounter Type Care Provider Facility Start: 05-09-2025 ambulatory [facility] Facilit y:[facility] Start: 05-07-2025 ambulatory [facility] Facilit y:[facility] Start: 04-13-2025 End: 04-13-2025 Emergency department patient visit Chetan Powell MD Work Phone: [facility] Comment on above: Facial laceration, i nitial encounter (Primary Dx); Fall, initial encounter; Open fracture of nasal bone, initial encounter Start: 04-09-2025 End: 04-09-2025 Emergency department patient visit Dr. Ron Cooley MD Work Phone: -Emergency Department Work Phone: Start: 04-03-2025 End: 04-03-[address] Ron Cooley MD -Laboratory [facility] Start: 04-03-2025 End: 04-03-2025 ambulatory NATASHA GREGORY MD Facility:A Start: 04-03-2025 End: 04-03-2025 ambulatory Ron Cooley Facility:[facility] Start: 04-01-[address] Olivier Santo MD -Speech Therapy Work Phone: Start: 03-26-[address] Olivier Santo MD -Speech Therapy Work Phone: Start: 03-24-2025 End: 03-24-[address] Ron Cooley MD Work Phone: [facility] Work Phone: Start: 03-24-2025 End: 03-24-[address] Jose Perez MD -[facility] Work Phone: Start: 03-24-2025 End: 03-24-2025 ambulatory Ron Cooley Facility:[facility] Start: 03-20-2025 End: 03-20-[address] Vick Santo MD -[facility] Work Phone: Start: 03-20-2025 End: 03-20-2025 ambulatory Vick Santo Facility:[facility] Start: 03-03-2025 End: 03-03-[address] Ron Cooley MD Work Phone: [facility] Work Phone: Start: 03-03-2025 End: 03-03-[address] Jose Perez MD -[facility] Start: 03-03-2025 End: 03-03-2025 ambulatory [facility] Pancho Cooley Facility:[facility] Start: 02-25-[address] Olivier Santo MD -Speech Therapy Work Phone: Start: 02-20-2025 End: 02-20-[address] Ron Cooley MD Work Phone: [facility] Work Phone: Start: 02-20-2025 End: 02-20-[address] Natasha Gregory MD -Laboratory, [facility] Start: 02-20-2025 End: 02-20-2025 ambulatory Natasha Gregory Facility:[facility] Start: 02-14-2025 End: 02-14-2025 Emergency department patient visit Dr. Ron Cooley MD Work Phone: -Emergency Department Work Phone: Start: 02-06-2025 End: 02-06-[address] Vick Santo MD -[facility] Work Phone: Start: 02-06-2025 End: 02-06-2025 ambulatory Vick Santo Facility:[facility] [place] Start: 01-21-2025 End: 01-21-[address] Ron Cooley MD Work Phone: [facility] Work Phone: Start: 01-21-2025 End: 01-21-[address] Ron Cooley MD -Radiology, [place] Work Phone: Start: 01-21-2025 End: 01-21-2025 ambulatory Ron Cooley Facility:[facility] Start: 12-10-2024 End: 12-10-[address] Vick Santo MD -[facility] Work Phone: Start: 12-10-2024 End: 12-10-2024 ambulatory Ron Cooley Facility:[facility] [facility] Start: 12-10-2024 End: 12-10-2024 ambulatory Ron Cooley Facility:[facility] Start: 12-05-2024 End: 12-05-2024 Emergency department patient visit Dr. Estuardo Mccormack DO -Emergency Department Work Phone: Start: 12-04-2024 End: 12-04-[address] [facility] Start: 12-04-2024 End: 12-04-2024 ambulatory Ron Cooley Facility:[facility] Start: 12-02-2024 End: 12-02-[address] Jose Perez MD -Radiology, [place] Work Phone: Start: 12-02-2024 End: 12-02-2024 ambulatory Ron Cooley Facility:[facility] Start: 10-28-2024 End: 10-28-[address] Natasha Gregory MD -Laboratory, [place] Work Phone: Start: 10-28-2024 End: 10-28-2024 ambulatory Natasha Gregory Facility:[facility] Start: 10-12-2024 End: 10-12-2024 Emergency department patient visit Dr. Osman Farooq MD -Emergency Department Work Phone: Start: 09-27-2024 End: 09-27-2024 ambulatory Ron Cooley Facility:[facility] Start: 09-20-2024 End: 09-20-[facility] Start: 09-02-2024 End: 09-02-2024 ambulatory Ron Cooley Facility:[facility] Start: 09-02-2024 End: 09-02-2024 [facility] Start: 08-07-2024 End: 08-07-2024 ambulatory Ron Cooley Facility:[facility] Start: 06-27-2024 End: 06-27-2024 ambulatory Ron Cooley Facility:[facility] Start: 06-27-2024 End: 06-27-2024 ambulatory Natasha Gregory Facility:[facility] Start: 06-10-2024 End: 06-10-2024 ambulatory Whitley Kimball Facility:[facility] Start: 03-25-2024 End: 03-25-[address] Ron Cooley Work Phone: [facility] Work Phone: Start: 03-25-2024 End: 03-25-[address] Ron Cooley Work Phone: [facility] Work Phone: Start: 03-25-2024 End: 03-25-[address] Ron Cooley Work Phone: [facility] Work Phone: Start: 02-27-2024 End: 02-27-[address] Ron Cooley Work Phone: [facility] Work Phone: Start: 02-27-2024 End: 02-27-[address] Ron Cooley Work Phone: [facility] Start: 01-30-2024 End: 01-30-[address] Ron Cooley Work Phone: [facility] Work Phone: Start: 01-30-2024 End: 01-30-[address] Ron Cooley Work Phone: [facility] Work Phone: Start: 12-26-2023 End: 12-26-[address] Ron Cooley Work Phone: [facility] Work Phone: Start: 12-26-2023 End: 12-26-[address] Ron Cooley Work Phone: [facility] Work Phone: Start: 12-15-2023 End: 12-15-[address] Ron Cooley Work Phone: [facility] Work Phone: Start: 12-15-2023 End: 12-15-[address] Ron Cooley Work Phone: [facility] Work Phone: Start: 11-23-2023 End: 11-23-[address] Ron Cooley Work Phone: [facility] Start: 11-23-2023 End: 11-23-[address] Ron Cooley Work Phone: [facility] Neurology Work Phone: Start: 11-22-2023 End: 11-22-[address] Ron Cooley Work Phone: [facility] Work Phone: Start: 11-22-2023 End: 11-22-[address] Ron Cooley Work Phone: [facility] Work Phone: Start: 10-31-2023 End: 10-31-[address] Ron Cooley Work Phone: [facility] Work Phone: Start: 10-31-2023 End: 10-31-[address] Ron Cooley Work Phone: [facility] Start: 09-07-2023 End: 09-07-[address] Ron Cooley Work Phone: [facility] Neu[facility] Work Phone: Start: 08-07-2023 End: 08-07-[address] Ron Cooley Work Phone: [facility] Neurology Work Phone: Start: 08-03-2023 End: 08-03-[address] Ron Cooley Work Phone: [facility] Work Phone: Start: 06-21-2023 Non-patient / Non-visit Dr. Rimma Cooley Work Phone: [facility] Start: 06-21-2023 End: 06-21-[address] Ron Cooley Work Phone: [facility] Work Phone: Start: 06-21-2023 End: 06-21-[address] Ron Cooley Work Phone: [facility]-Pulmonary Services/Neurology Work Phone: Start: 05-18-2023 End: 05-18-[address] Ron Cooley Work Phone: [facility] Work Phone: Start: 05-18-2023 End: 05-18-[address] Ron Cooley Work Phone: [facility] Work Phone: Start: 05-09-2023 End: 05-09-[address] Ron Cooley Work Phone: [facility] Work Phone: Start: 05-09-2023 End: 05-09-[address] Ron Cooley Work Phone: [facility] Start: 05-02-2023 End: 05-02-[address] Ron Cooley Work Phone: [facility] Work Phone: Start: 05-02-2023 End: 05-02-[address] Ron Cooley Work Phone: [facility]-Physical Therapy Work Phone: Start: 05-02-[address] Ron Cooley Work Phone: [facility]-Physical Therapy Start: 05-01-2023 End: 05-01-[address] Ron Cooley Work Phone: [facility] Work Phone: Start: 05-01-2023 End: 05-01-[address] Ron Cooley Work Phone: [facility] Start: 04-12-2023 End: 04-12-[address] Ron Cooley Work Phone: [facility] Start: 04-11-2023 End: 04-11-[address] Ron Cooley Work Phone: [facility] Neurology Start: 02-21-2023 End: 02-21-2023 ambulatory [facility] Work Phone: Start: 02-21-2023 End: 02-21-2023 Patient encounter procedure [facility] Start: 02-14-2023 Telephone encounter Jaylyn peck MD Work Phone: Neurology Comment on above: Patient Update (Incr eased falls, aggression) Start: 02-11-2023 End: 02-11-2023 Emergency department patient visit [facility]-Emergency Department Start: 01-10-2023 Telephone encounter Jaylyn peck MD Work Phone: Neurology Comment on above: Patient Update Start: 01-04-2023 End: 01-04-2023 ambulatory [facility] Work Phone: Start: 01-04-2023 End: 01-04-2023 Patient encounter procedure [facility] Start: 12-12-2022 End: 12-12-2022 ambulatory Leni Ruiz APRN.FITNESS CLUB MANAGER Work Phone: Neurology Comment on above: TAMULOSIN Start: 12-12-2022 End: 12-12-2022 Office outpatient new 20 minutes Leni Ruiz APRN.FITNESS CLUB MANAGER Work Phone: Neurology Comment on above: Parkinsonism, unspec ified Parkinsonism type (HCC) (Primary Dx); Orthostatic hypotension; Anxiety Start: 10-10-2022 Telephone encounter Jaylyn peck MD Work Phone: Neurology Comment on above: Patient Update (Incr eased shaking in AM ) Start: 10-04-2022 End: 10-04-2022 ambulatory KORI RYDER Facility:[facility] Start: 10-04-2022 End: 10-04-2022 ambulatory Kori Ryder PT, DPT Work Phone: [facility] Outpatient Physical Therapy Comment on above: Parkinsonism, unspec ified Parkinsonism type (HCC) (Primary Dx); Gait instability; Leg weakness, bilateral; Imbalance Start: 09-16-2022 End: 09-16-2022 ambulatory [facility] Work Phone: Start: 09-16-2022 End: 09-16-2022 Patient encounter procedure [facility], [facility] Start: 09-15-2022 End: 09-15-2022 ambulatory Jaylyn Nieves MD Work Phone: Neurology Comment on above: CYMBALTA Start: 09-12-2022 Telephone encounter Jaylyn peck MD Work Phone: Neurological Confucianist Comment on above: Other (PD Symptoms W orsening) Start: 09-02-2022 End: 09-02-2022 [facility] Aleida Ramirez MD Work Phone: Neurological Confucianist Comment on above: MELISSA (generalized anx iety disorder) (Primary Dx); Depression, unspecified depression type; Parkinsonism, unspecified Parkinsonism type (HCC) Start: 08-25-2022 End: 08-25-2022 ambulatory RON COOLEY Facility:[facility] Start: 08-25-2022 End: 08-25-2022 ambulatory Kori Ryder PT, DPT Work Phone: [facility] Physical Therapy Comment on above: Parkinsonism, unspec ified Parkinsonism type (HCC) (Primary Dx); Gait instability; Leg weakness, bilateral; Imbalance Start: 08-11-2022 End: 08-11-2022 ambulatory RON COOLEY Facility:[facility] Start: 08-08-2022 ambulatory Jaylyn jennings MD Work Phone: Neurology Comment on above: Dr. Suzie Nieves at 07/21 2:20 PM Start: 08-04-2022 End: 08-04-2022 ambulatory JAYLYN NIEVES Facility:[facility] Start: 08-04-2022 End: 08-04-2022 Patient encounter procedure Jaylyn Nieves MD Work Phone: Neurology Comment on above: Parkinsonism, unspec ified Parkinsonism type (HCC) (Primary Dx); Depression, unspecified depression type; Anxiety; Orthostatic lightheadedness; Dysphagia, unspecified type Start: 08-01-2022 End: 08-01-[address] Patricia Mcgowan Work Phone: [facility] Work Phone: Start: 08-01-2022 End: 08-01-[address] Patricia Mcgowan Work Phone: [facility] Start: 07-21-2022 Telephone encounter Jaylyn peck MD Work Phone: Neurology Comment on above: Appointment (Earlier appointment request d/t worsening symptoms ) Start: 06-21-2022 End: 06-21-[address] Patricia Mcgowan Work Phone: [facility] Start: 06-20-2022 End: 06-20-[address] Patricia Mcgowan Work Phone: [facility] Start: 05-18-2022 Refill Jaylyn jennings MD Work Phone: Neurological Confucianist Comment on above: Refill Request Start: 05-16-2022 Non-patient / Non-visit Dr. Danya Mcgowan Work Phone: [facility] Start: 05-16-2022 End: 05-16-[address] Patricia Mcgowan Work Phone: [phone] [place] [address]-Cardiovascul ar Services Start: 04-25-2022 End: 04-25-[address] Patricia Mcgowan Work Phone: [facility] Start: 04-12-2022 End: 04-12-[address] Patricia Mcgowan Work Phone: [facility] Start: 04-07-2022 End: 04-07-2022 Patient encounter procedure [facility] Start: 03-29-2022 End: 03-29-2022 ambulatory Maine Medel PT, DPT Work Phone: [facility] Therapy Comment on above: Parkinson disease (H CC) (Primary Dx) Start: 03-29-2022 End: 03-29-2022 Patient encounter procedure Sakina Ro CCC-CHIMNEY REPAIRER Work Phone: [facility] Outpatient Speech Therapy Comment on above: Parkinsonism, unspec ified Parkinsonism type (HCC) (Primary Dx); Dysphagia, oropharyngeal phase; Dysarthria Gait instability (Pr imary Dx); Parkinsonism, unspecified Parkinsonism type (HCC); Dysphasia; Oropharyngeal dysphagia; Decreased activities of daily living (ADL) Start: 03-23-2022 Telephone encounter Jaylyn peck MD Work Phone: Neurology Comment on above: Upcoming Appointment (Pre-rooming phone call) Start: 03-17-2022 End: 03-17-2022 ambulatory PATRICIA MCGOWAN Facility:[facility] Start: 03-17-2022 End: 03-17-2022 Patient encounter procedure Jaylyn Nieves MD Work Phone: Neurology Comment on above: Parkinsonism, unspec ified Parkinsonism type (HCC) (Primary Dx); Essential tremor; Dysphagia, unspecified type; Gait instability Start: 03-10-2022 End: 03-10-2022 Patient encounter procedure [facility] Start: 02-10-2022 Documentation procedure Jaspreet Ríos [facility], Neuroscience Start: 01-28-2022 End: 01-28-2022 Emergency department patient visit [facility]-Emergency Department Start: 12-31-2021 End: 12-31-2021 Patient encounter procedure [facility] Start: 12-21-2021 End: 12-21-2021 ambulatory [facility] Start: 12-21-2021 End: 12-21-2021 Office outpatient visit 15 minutes Barb Morton MD Work Phone: [facility], Neuroscience Comment on above: Parkinson's disease (HCC) (Primary Dx) Start: 12-15-2021 End: 12-16-2021 ambulatory [facility] Start: 12-15-2021 End: 12-16-2021 ambulatory [facility] Start: 12-05-2021 ambulatory [facility] Start: 11-18-2021 ambulatory [facility] Start: 11-15-2021 Patient encounter procedure [facility] Start: 11-09-2021 Marisela Qureshi MA [facility], Neuroscience Start: 11-05-2021 Documentation procedure Jim Bradford RN [facility] Physician [facility], Neuroscience Start: 11-03-2021 Documentation procedure Jaspreet Ríos [facility] Physician [facility], Neuroscience Start: 11-01-2021 End: 11-02-2021 ambulatory [facility] Start: 10-28-2021 End: 11-01-2021 ambulatory Barb Morton MD Work Phone: [facility] Comment on above: Tremor; Impaired mobility and activities of daily living; Impairment of balance Start: 10-05-2021 End: 10-05-2021 ambulatory [facility] Start: 10-05-2021 End: 10-05-2021 Office outpatient visit 25 minutes Barb Morton MD Work Phone: [facility], Neuroscience Comment on above: Tremor (Primary Dx) Start: 09-27-2021 Transcribe Orders Patricia Mcgowan MD Work Phone: [facility], Neuroscience Comment on above: Tremor, essential (P rimary Dx) Start: 05-19-2021 End: 05-19-2021 Subsequent hospital visit by physician Nii Altman MD Work Phone: [facility] General Surgery Comment on above: Arrived Start: 05-11-2021 End: 05-11-2021 Patient encounter status Raeann Holland ELECTRONICS TEACHER - FITNESS CLUB MANAGER Work Phone: [facility] Start: 05-11-2021 End: 05-11-2021 Subsequent hospital visit by physician Raeann Holland ELECTRONICS TEACHER - FITNESS CLUB MANAGER Work Phone: [facility] Comment on above: Abnormal electrocard iogram (ECG) (EKG); Shortness of breath; Pre-op testing; Abnormal EKG Start: 05-05-2021 End: 05-05-2021 Patient encounter status Nii Altman MD Work Phone: [facility] Pre-Admit Testing Start: 05-05-2021 End: 05-05-2021 Subsequent hospital visit by physician Nii Altman MD Work Phone: [facility] Pre-Admit Testing Comment on above: Pre-op testing (Prim sophie Dx); Abnormal EKG; Shortness of breath Start: 04-12-2021 Patient encounter status [facility] Work Phone: Start: 08-14-2006 End: 08-14-2006 Patient encounter procedure Wyatt Teixeira Noble Work Phone: [facility] Start: 08-14-2006 Results Only Wyatt Lluvia Torio x Work Phone: [facility] Start: 02-03-2006 End: 02-03-2006 Patient encounter procedure Wyattjeni Noble Work Phone: [facility] Start: 02-03-2006 Results Only Wyatt Lluvia Torio x Work Phone: [facility] Procedures Date Procedure Procedure Detail Performing Clinician [...] 05-11-2021 ECHOCARDIOGRAM PHARMACOLOGICAL STRESS TEST Raeann Holland ELECTRONICS TEACHER - [place] Work Phone: Start: 05-05-2021 Antibody screen Nii Charlton MD Work Phone: Start: 05-05-2021 Blood count complete automated Raeann Holland ELECTRONICS TEACHER - FITNESS CLUB MANAGER Work Phone: Start: 05-05-2021 Blood typing serologic abo Raeann Holland ELECTRONICS TEACHER - FITNESS CLUB MANAGER Work Phone: Start: 05-05-2021 Ecg routine ecg w/le ast 12 lds w/i&r Raeann Holland ELECTRONICS TEACHER - FITNESS CLUB MANAGER Work Phone: Start: 08-14-2006 CONVERTED SURGICAL PATHOLOGY Wyatt Noble Work Phone: Start: 02-03-2006 CONVERTED SURGICAL PATHOLOGY Wyatt Noble Work Phone: Plan of Treatment Date Care Activity Detail Author Start: 12-05-2034 DTaP/Tdap/Td Vaccines (4 - Td or Tdap) DTaP/Tdap/Td Vaccines (4 - Td or Tdap) [facility] Start: 01-25-2031 Tetanus vaccination Tetanus: Every 10yrs [facility] Start: 04-09-2025 [facility] Start: 03-24-2025 CT Chest WO contrast [facility] Start: 03-24-2025 CT of chest without contrast Chest without Contrast [facility] Start: 02-14-2025 [facility] Start: 01-04-2025 Patient referral [facility] Work Phone: Start: 12-11-2024 Patient referral [facility] Work Phone: Start: 12-05-2024 [facility] Start: 12-05-2024 Simple repair f/e/e/n/l/m 2.6cm-5.0 cm RPR F/E/E/N/L/M 2.6-5.0 CM [facility] Start: 11-11-2024 COVID-19 Vaccine () COVID-19 Vaccine () [facility] Start: 10-12-2024 Incentive spirometry [facility] Start: 10-12-2024 End: 10-12-2024 [facility] Start: 04-02-2024 Patient referral [facility] Work Phone: Start: 03-25-2024 Acetylcholine receptor blocking Ab [Presence] in Serum [facility] Start: 03-25-2024 Acetylcholine receptor modulating antibody measurement [facility] Start: 11-23-2023 Serum immunofixation [facility] Start: 11-23-2023 Urine immunofixation [facility] Start: 05-09-2023 [place] and lambda light chains [facility] [facility] Start: 05-09-2023 Thiamine measurement [facility] Start: 03-11-2023 Adult depression screening assessment DEPRESSION SCREENING [facility] Start: 11-20-2022 ADVANCE DIRECTIVE DISCUSSION ADVANCE DIRECTIVE DISCUSSION [facility] Start: 11-20-2022 DEPRESSION ASSESSMENT DEPRESSION ASSESSMENT [facility] Start: 07-21-2022 Influenza vaccination INFLUENZA (#1) [facility] Start: 05-05-2022 Creatinine measurement Creatinine monitoring [employer] Work Phone: Start: 05-05-2022 Diabetes: Estimated Glomerular Filtration Rate for [facility] Diabetes: Estimated Glomerular Filtration Rate for [facility] [employer] Start: 05-05-2022 Potassium monitoring Potassium monitoring [employer] Phone: Start: 12-21-2021 End: 12-21-2021 Telemedicine consultation with patient 12/21/2021 Telemedicine Neurology Barb Morton MD [address] [place] [address] [facility], Neuroscience Start: 12-15-2021 End: 12-15-2021 Patient encounter procedure 12/15/2021 Appointment Radiology Barb Morton MD [address] [facility] [place] [address] [facility] Nuclear Medicine Start: 11-20-2021 ADVANCE DIRECTIVE DISCUSSION ADVANCE DIRECTIVE DISCUSSION [facility] Start: 11-20-2021 DEPRESSION ASSESSMENT DEPRESSION ASSESSMENT [facility] Start: 11-01-2021 End: 11-01-2021 Patient encounter procedure 11/01/2021 Appointment Radiology Barb Morton MD [address] [facility] [address] [place] [address] [facility] Start: 06-03-2021 End: 06-03-2021 Patient encounter procedure 06/03/2021 Office Visit Neurosurgery Nii Altman MD [address] [place] [address] [phone] [facility] Start: 05-19-2021 End: 05-19-2021 Patient encounter procedure 05/19/2021 Appointment General Surgery Nii Altman MD [address] [place] [address] [phone] [facility] General Surgery Start: 05-05-2021 End: 07-04-2021 ECHO Pharmacological Stress Test ECHO Pharmacological Stress Test Echocardiography Routine Pre-op testing Abnormal EKG Shortness of breath Expected: 05/05/2021 (Approximate), Expires: 07/04/2021 [facility] Work Phone: Comment on above: Expected: 05/05/2021 (Approximate), Expi res: 07/04/2021 Start: 07-21-2020 Influenza vaccination INFLUENZA (#1) [facility] Start: 05-12-2019 Annual Wellness Visit (AWV) Annual Wellness Visit (AWV) [facility] Work Phone: Start: 2009 ADVANCE DIRECTIVE DISCUSSION ADVANCE DIRECTIVE DISCUSSION [facility] Start: 2009 Fall risk assessment Falls Risk Assessment [facility] Start: 2009 Pneumococcal 65+ years Vaccine (1 of 1 - PPSV23) Pneumococcal 65+ years Vaccine (1 of 1 - PPSV23) [facility] Work Phone: Start: 2009 PNEUMOCOCCAL: 65+ (1 - PCV) PNEUMOCOCCAL: 65+ (1 - PCV) [facility] Start: 2009 PNEUMOVAX AGE 65 AND OVER WITH 5YR LOOKBACK (#1) PNEUMOVAX AGE 65 AND OVER WITH 5YR LOOKBACK (#1) [facility] Start: 1994 Shingles Vaccine (1 of 2) Shingles Vaccine (1 of 2) [facility] Work Phone: Start: 1994 SHINGRIX VACCINE (1 of 2) SHINGRIX VACCINE (1 of 2) [facility] Start: 1994 Tuberculosis screening COLORECTAL CANCER SCREENING,SEE MODIFIER [facility] Start: 1989 DIABETES SCREEN DIABETES SCREEN [facility] Start: 1979 LIPID SCREEN LIPID SCREEN [facility] Start: 1963 DTaP/Tdap/Td vaccine (1 - Tdap) DTaP/Tdap/Td vaccine (1 - Tdap) [facility] Work Phone: Start: 1963 Urine microalbumin profile DTAP,TDAP,TD (1 - Tdap) [facility] Start: 1962 Diabetes: Urine Albumin-Creatinine Ratio for [facility] Diabetes: Urine Albumin-Creatinine Ratio for Kid[facility] Health [facility] Start: 1962 HEPATITIS C SCREENING HEPATITIS C SCREENING [facility] Start: 1962 Hepatitis C screening Hepatitis C Screening [facility] Start: 1956 COVID-19 Vaccine (1) COVID-19 Vaccine (1) [facility] Work Phone: Start: 1956 Depression screening using PHQ-9 (Patient Health Questionnaire 9) score [facility] Start: 1954 Diabetic foot examination Foot Exam [facility] Start: 1954 Lipid panel Lipid screen [employer] Work Phone: Start: 1954 Microalbumin measurement, urine, quantitative Urine Microalbumin [facility] Start: 1954 Ophthalmic examination and evaluation Ophthalmology Exam [facility] Start: 1947 History and physical examination, annual for health maintenance Wellness Visit [facility] Start: 1944 Hemoglobin A1c measurement A1C [facility] Start: 1944 Hepatitis C screening [facility]atitis C screen [facility] Work [facility]: Start: 1944 Medicare Annual Wellness (AWV) Medicare Annual Wellness (AWV) [facility] Albumin [Moles/volum e] in Serum or Plasma [facility] Albumin/Globulin ratio [facility] Blood glucose - POCT [employer] Work Phone: Comment on above: As Needed until discontinued starting End: 05-19-2021 Creatinine [Mass/volume] in Serum or Plasma Creatinine, serum Lab STAT One Time for 1 Occurrences starting 05/19/2021 until 05/19/2021 [facility] Work Phone: Comment on above: One Time for 1 Occurrences starting 04/22 until 05/19/2021 End: 10-05-2022 CT of head without contrast CT Head Or Brain Without Contrast Imaging Routine Tremor 1 Occurrences starting 10/05/2021 until 10/05/2022 [facility] Comment on above: 1 Occurrences starting 10/05/2021 until 10/05/2022 EKG 12 Lead [facility] Work Phone: Electrophoresis: [id number] [facility] Electrophoresis: aamir ma globulin [facility] Globulin measurement [facility] IgA [Mass/volume] in Serum or Plasma [facility] IgG [Mass/volume] in Serum or Plasma [facility] IgM [Mass/volume] in Serum or Plasma [facility] End: 05-19-2021 Intermittent pulse oximetry Pulse Oximetry Spot Check Respiratory Care Routine One Time for 1 Occurrences starting 05/19/2021 until 05/19/2021 [employer] Work Phone: Comment on above: One Time for 1 Occurrences starting 04/22 until 05/19/2021 [place]/lambda light c winsome ratio [facility] Lambda light chains. free [Mass/volume] in Serum or Plasma [facility] MR Brain WO and W contrast IV [facility] MR Brain WO contrast [facility] MR Cervical spine [facility] MR Lumbar spine [facility] End: 05-11-2021 Nasal Cannula Oxygen Nasal Cannula Oxygen Respiratory Care Routine As Needed until discontinued starting 05/11/2021 [employer] Work Phone: Comment on above: As Needed until discontinued starting End: 10-05-2022 NM Brain Datscan SPECT CT Single Area Single Day NM Brain Datscan SPECT CT Single Area Single Day Imaging Routine Tremor 1 Occurrences starting 10/05/2021 until 10/05/2022 [facility] Work Phone: Comment on above: 1 Occurrences starting 10/05/2021 until 10/05/2022 Oxygen therapy [[facility] Data Set] Initiate Oxygen Therapy Protocol Respiratory Care Routine Daily until discontinued starting 05/19/2021 [employer] Work Phone: Comment on above: Daily until discontinued starting 2020 Patient Education [facility] Work Phone: Patient referral [facility] Work Phone: End: 05-19-2021 Potassium w/ Reflex to Magnesium Potassium w/ Reflex to Magnesium Lab Routine One Time for 1 Occurrences starting 05/19/2021 until 05/19/2021 [employer] Work Phone: Comment on above: One Time for 1 Occurrences starting 04/22 until 05/19/2021 End: 05-19-2021 , urine POCT , urine POCT Point of Care Testing Routine One Time for 1 Occurrences starting 05/19/2021 until 05/19/2021 [employer] Work Phone: Comment on above: One Time for 1 Occurrences starting 04/22 until 05/19/2021 Protein electrophore sis panel - Serum or Plasma [facility] End: 05-19-2021 Protime-INR Protime-INR Lab STAT One Time for 1 Occurrences starting 05/19/2021 until 05/19/2021 [facility] Work Phone: Comment on above: One Time for 1 Occurrences starting 04/22 until 05/19/2021 PT PLAN OF CARE CERTIFICATION PT PLAN OF CARE CERTIFICATION Procedures Routine Parkinson disease (HCC) Ordered: 03/29/2022 [facility] Work Phone: Comment on above: Ordered: 03/29/2022 Serum immunofixation [facility] SPEECH PLAN OF CARE CERTIFICATION SPEECH PLAN OF CARE CERTIFICATION Procedures Routine Parkinsonism, unspecified Parkinsonism type (HCC) Dysphagia, oropharyngeal phase Dysarthria Ordered: 03/29/2022 [facility] Work Phone: Comment on above: Ordered: 03/29/2022 Spirometry panel Incentive mariann metry Respiratory Care Routine Q1H PRN until discontinued starting 05/19/2021 [facility] Work Phone: Comment on above: Q1H PRN until discontinued starting 04/22 Urine immunofixation [facility] Urine kappa light ch ain measurement [facility] Immunizations Immunization Date Immunization Notes Care Provider Fa heidi 12-05-2024 tetanus toxoid, redu aman diphtheria toxoid, and acellular pertussis vaccine, adsorbed Dr. Ron Cooley MD Work Phone: [facility] Payers Date Payer Category Payer Private Health Insurance [facility] [id number] 2025 Unknown [id number] 2024 Self-pay [id number] 2021 Unknown MD FOR L MARIAH [id number] 2021-Present [phone] [address] [place] [address] [id number] .7.3.915162.315 2021 Unknown [id number] 2021 Unknown [id number]. 1.13.385.2 .7.3.829819.315 2017 [employer] ( and others) [id number] 1.2.840.052213.1.13.239.2 .7.3.252844.315 2009 Medicare [id number] 1.2.840.091803.1.13.385.2 .7.3.606778.315 2009 Medicare 1.2.840.576833. 1.13.385.2 .7.3.337720.315 2009 Medicare [id number] 1.2.840.402419.1.13.239.2 .7.3.963595.315 2002 Self-pay [id number] 1.2.840.334612.1.13.159.2 .7.3.880950.315 1944 Unknown [id number] 2.16.840.1.380992.3.579.2 .900 1944 Unknown [id number] 2.16.840.1.525807.3.579.2 .900 1944 Unknown [id number] 2.16.840.1.998912.3.579.2 .900 1944 Unknown [id number] 2.16.840.1.572586.3.579.2 .900 1944 Unknown [id number] 2.16.840.1.927341.3.579.2 .900 1944 Unknown [id number] 2.16.840.1.435773.3.579.2 .900 1944 Unknown [id number] 2.16.840.1.927181.3.579.2 .900 1944 Unknown [id number] 2.16.840.1.394763.3.579.2 .900 1944 Unknown [id number] 2.16.840.1.458085.3.579.2 .900 1944 Unknown [id number] 2.16.840.1.603523.3.579.2 .627 1944 Unknown [id number] 2.16.840.1.483880.3.579.2 .627 Unknown [id number] 2.16.840.1.178324.3.579.2 .462 Unknown [id number] 2.16.840.1.393587.3.579.2 .462 Unknown [id number] 2.16840.1.768519.3.579.2 .462 Unknown [id number] 2.16.840.1.643081.3.579.2 .462 Unknown [id number] 2.16.840.1.781148.3.579.2 .462 Unknown [id number] 2.16.840.1.239241.3.579.2 .462 Unknown [id number] 2.16.840.1.768635.3.579.2 .462 Unknown [id number] 2.16.840.1.288291.3.579.2 .462 Unknown [id number] 2.840.1.658230.3.579.2 .462 Unknown [id number] 2.840.1.144456.3.579.2 .462 Unknown [id number] 2.840.1.152982.3.579.2 .462 Unknown [id number] 2.840.1.811778.3.579.2 .462 Unknown [id number] 2.840.1.760229.3.579.2 .462 Unknown [id number] 2.840.1.058460.3.579.2 .462 Unknown [id number] 2.840.1.157592.3.579.2 .462 Unknown [id number] 2.840.1.162704.3.579.2 .462 Unknown [id number] .840.1.700583.3.579.2 .462 Unknown [id number] .840.1.334748.3.579.2 .462 Unknown [id number] .0.1.556197.3.579.2 .462 Unknown [id number] .840.1.551180.3.579.2 .462 Unknown [id number] .840.1.735455.3.579.2 .462 Unknown [id number] .840.1.065424.3.579.2 .462 Unknown [id number] .840.1.248843.3.579.2 .462 Unknown [id number] 2.840.1.698771.3.579.2 .462 Unknown [id number] 2.840.1.753977.3.579.2 .462 Unknown [id number] 2.840.1.564777.3.579.2 .462 Social History Date Type Detail Facility [facility] Start: 1945 Sex Assigned At Not on file [facility] Start: 05-05-2021 End: 04-09-2025 Tobacco smoking status NHIS Former smoker [facility] Work Phone: Start: 11-20-1948 End: 11-20-1998 History of tobacco use Current smoker [facility] Start: 11-20-1948 End: 11-20-1998 History of tobacco use Cigarette Smoker [facility] Start: 05-05-2021 End: 11-08-2022 Cigarettes smoked current (pack per day) - Reported [facility] Work Phone: Start: 05-05-2021 End: 08-04-2022 Tobacco use and exposure Never used [facility] Start: 05-05-2021 End: 11-08-2022 Alcohol intake Current non-drinker of alcohol (finding) [facility] Work Phone: Start: 11-15-2021 End: 09-02-2022 Exposure to SARS-CoV-2 (event) Not sure [facility] Start: 01-28-2022 End: 08-07-2023 Tobacco smoking status [facility] Tobacco smoking consumption unknown [facility] Start: 10-05-2021 End: 12-12-2022 Alcohol intake Lifetime non-drinker (finding) [facility] Start: 1945 Sex Assigned At Male [facility] Start: 08-25-2021 History SDOH Alcohol Frequency 1 [facility] Start: 07-25-2022 End: 08-04-2022 Exposure to SARS-CoV-2 (event) Yes [facility] Start: 06-20-2022 End: 02-03-2025 Sex Male (finding) [facility] Start: 11-08-2022 End: 04-13-2025 Alcohol Use Disorder Identification Test - Consumption [AUDIT-C] [facility] How often to you hav e a drink containing alcohol? Never [facility] How many standard dr inks containing alcohol do you have on a typical day? Patient does not drink [facility] Medical Equipment Procedure Code Equipment Code Equipment Origin al Text Equipment Identifier Dates [id number] Start: 01-15-2018 SURE COMFORT PEN NEEDLES 31G X 8 MM [facility] [id number] Start: 12-28-2017 blood sugar diagnostic (FreeStyle Lite Strips) strips [id number] Start: 01-15-2018 pen needle, diab etic 31 gauge x 04/04 Ndle [id number] Start: 12-28-2017 Functional Status Date Assessment Result Facility 04-13-2025 Total score [AUDIT-C] 0 04/13/20 8:48 PM EDT Cielo Valverde RN [facility] Mental Status Date Assessment Result Facility 10-12-2024 Cognitive function Awake;Alert;A ppropriate;Follow s Commands [facility] Work Phone: 01-28-2022 Cognitive function Level Of Cons ciousness Awake;Alert;Appropriate;Follow s Commands [facility] Work Phone: Clinical Notes 05-05-2021 to 04-13-2025 [...] cannot be sent through Care Everywhere.Nose Fracture (Greenlandic)documented in this encounter [facility] 04-13-2025 Emergency departm ent Note Associated Order(s): [...] DEPARTMENT COURSE and DIFFERENTIAL DIAGNOSIS/MDM: Vitals: Vitals: 04/13/25 2040 BP: 132/58 Pulse: 77 Resp: 18 Temp: [...] records from: PDMP demonstrating 1 prescription, for [place] demonstrating bilateral nasal bone fractures. The [...] initial encounter Medications lidocaine-EPINEPHrine (Xylocaine W/EPI) 1 %-1:310202 injection 10 mL (has no administration in [...] Consent obtained: Verbal Consent given by: Patient [place] protocol: Imaging studies available: yes Patient identity [...] Discharge 04/13/2025 09:39:45 PM PATIENT REFERRED TO: [facility] [address] [facility] [phone] Schedule an appointment as soon as [...] scheduled for the surgery on 04/17/2018 [facility] COPD (chronic obstructive pulmonary disease) ([facility]) Diabetes mellitus type 2, controlled ([facility]) ([facility]) [place] (hard of hearing) HAS HEARING AID BOTH EARS , BUT DID NOT WEAR THEM Hyperlipidemia Hypertension MELISSA on CPAP [2] Past Surgical History: Procedure Laterality Date COLONOSCOPY COLONOSCOPY ELBOW SURGERY Left 1990 Lateral epicondylitis surgery EYE SURGERY bilat cataracts and implants JOINT REPLACEMENT Bilateral TKA L 2005, TKA R 2011 SKIN BIOPSY SPINAL FUSION 2000 L2,3,4; AT [facility] WRIST ARTHROSCOPY (HISTORICAL) Left 04/17/2018 [3] Family [...] above left eye documented in this encounter [facility] 04-13-2025 Emergency departm ent Triage note Pt presents to ED via EMS from restaurant for c/o left frontal head lac after losing footing and falling onto face on the ground. Pt has hx of parkinson's. Abrasion noted to forehead, small lac noted to bridge of nose as well as a large lac to forehead above left eye [facility] 04-13-2025 Physician Emergen cy department Note Associated [...] DEPARTMENT COURSE and DIFFERENTIAL DIAGNOSIS/MDM: Vitals: Vitals: 04/13/25 2040 BP: 132/58 Pulse: 77 Resp: 18 Temp: [...] CT maxillofacial I reviewed external records from: [facility] demonstrating 1 prescription, for [place] CT demonstrating bilateral nasal bone fractures. The [...] initial encounter Medications lidocaine-EPINEPHrine (Xylocaine W/EPI) 1 %-1:516695 injection 10 mL (has no administration in [...] Consent obtained: Verbal Consent given by: Patient [place] protocol: Imaging studies available: yes Patient identity [...] Discharge 04/13/2025 09:39:45 PM [facility] [address] [facility] [address] Schedule an appointment as soon as [...] scheduled for the surgery on 04/17/2018 [facility] COPD (chronic obstructive pulmonary disease) ([facility]) Diabetes mellitus type 2, controlled ([facility]) ([facility]) [place] (hard of hearing) HAS HEARING AID BOTH EARS , BUT DID NOT WEAR THEM Hyperlipidemia Hypertension MELISSA on CPAP [2] Past Surgical History: Procedure Laterality Date COLONOSCOPY COLONOSCOPY ELBOW SURGERY Left 1990 Lateral epicondylitis surgery EYE SURGERY bilat cataracts and implants JOINT REPLACEMENT Bilateral TKA L 2005, TKA R 2011 SKIN BIOPSY SPINAL FUSION 2000 L2,3,4; AT [facility] WRIST ARTHROSCOPY (HISTORICAL) Left 04/17/2018 [3] Family [...] Drug use: No Chetan Powell MD 04/13/252221 [facility] 04-09-2025 Discharge summary [facility] 04-09-2025 Radiology Diagnostic study note [facility] [address] [place] [address] Spine Cervical without Contras MR#: [id number] Acct: [id number] Name: KEVIN GRIFFITH Rep #: [id number] : 1945 M 79 From: Kristy Corey MD PCP: Dr. Ron Cooley MD Status: RE G ER Study:Spine Cervical without Contras Date of Exam: 04/09/25 Exam# [id number] Ordering Dr: Surya Dumont MD EXAM: CT [...] the cervical spine as described. Reading Location: [facility] CC: Dr. Surya Dumont MD; Dr. Ron Cooley MD ~ Ell Tutor: Signed [facility] 04-09-2025 Radiology Diagnostic study note [facility] [address] [place], [place] [address] Brain/Head without Contrast MR#: [id number] Acct: [id number] Name: KEIVN GRIFFITH Rep #: [id number] : 1945 M 79 From: Kristy Corey MD PCP: Dr. Ron Cooley MD Status: RE G ER Study:Brain/Head without Contrast Date of Exa m: 04/09/25 Exam# [id number] Ordering Dr: Surya Dumont MD EXAM: CT [...] change from the prior exam. Reading Location: [facility] CC: Dr. Surya Dumont MD; Dr. Ron Cooley MD ~ Ell Tutor: Signed [facility] 04-09-2025 Hospital Discharge instructions Additional Instructions Have brandi removed by your primary care provider in 7 to 10 days. There were a total of 5 brandi inserted. Return to the emergency department with fever, drainage of pus from wound, new or worsening symptoms. [facility] Work Phone: 02-14-2025 Radiology Diagnostic study note [facility] [address] [place] [address] Spine Cervical without Contras MR#: [id number] Acct: [id number] Name: KEVIN GRIFFITH Rep #: [id number] : 1945 M 79 From: Roopa Corbett MD PCP: Dr. Ron Cooley MD Status: RE G ER Study:Spine Cervical without Contras Date of Exam: 02/14/25 Exam# [id number] Ordering Dr: Darien Soto DO PROCEDURE: SPINE CERVICAL WITHOUT CONTRAS [...] ACUTE CERVICAL FRACTURE. DEGENERATIVE CHANGES. Reading Location: [id number] CC: Dr. Ron Cooley MD; Dr. Joe Soto DO ~ Ell Tutor: Signed [facility] 02-14-2025 Radiology Diagnostic study note [facility] [address] [place] [address] Brain/Head without Contrast MR#: [id number] Acct: [id number] Name: KEVIN GRIFFITH Rep #: [id number] : 1945 M 79 From: Roopa Corbett MD PCP: Dr. Ron Cooley MD Status: DARIEN Teixeira ER Study:Brain/Head without Contrast Date of Exa m: 02/14/25 Exam# [id number] Ordering Dr: Darien Soto DO EXAM: BRAIN/HEAD WITHOUT CONTRAST CLINICAL [...] ischemic change and age-related change. Reading Location: [id number] CC: Dr. Ron Cooley MD; Dr. Joe Soto DO ~ Ell Tutor: Signed [facility] 01-21-2025 Radiology Diagnostic study note [facility] [address] [place] [address] Chest PA and Lateral MR#: [id number] Acct: [id number] Name: KEVIN GRIFFITH Rep #: [id number] : 1945 M 79 From: Kristy Corey MD PCP: Dr. Ron Cooley MD Status: DARIEN Teixeira CLI Study:Chest PA and Lateral Date of Exam: 01/21/25 Exam# [id number] Ordering Dr: Ron Cooley MD EXAM: XR Chest, 2 Views CLINICAL INDICATION: TECHNIQUE: Frontal and lateral views of the chest. COMPARISON: No relevant prior studies available. FINDINGS: LUNGS AND PLEURAL SPACES: Unremarkable. No consolidation. No pneumothorax. HEART: Unremarkable. No cardiomegaly. MEDIASTINUM: Unremarkable. Normal mediastinal contour. BONES/JOINTS: Unremarkable. No acute fracture. RAD/Chest PA and Lateral IMPRESSION: No acute cardiopulmonary process. [facility] CC: Dr. Ron Cooley MD ~ Ell Tutor: Signed [facility] 12-10-2024 Evaluation note Diagnosis Onset Date Resolution Diplopia acute December 10, 2024 10:37am Dysphagia acute December 10, 2024 10:37am Abnormality of gait and mobility chronic December 10 10:37am Dementia chronic December 10, 2024 10:37am Parkinson's disease chronic 2024 10:37am Polyneuropathy chronic December 102024 10:37am [facility] Work Phone: 1(576) 655-306001-21-2025 Evaluation note* Diagnosis Onset Date Resolution Status [...] 06, 2025 1:00pm Polyneuropathy chronic January 1:00pm [facility] Work Phone: 1(780) 485-478101-21-2025 Evaluation note* Diagnosis Onset Date Resolution Status [...] chronic March 202024 3:22pm Polyneuropathy chronic March 20 3:22pm [facility] Work Phone: 1(759) 204-551808-02-2023 Procedure [facility] 02-15-2023 NoteHNO ID: [id number] Author: Kori Ryder PT, DPT Service: ? Author Type: Physical Therapist Type: Progress Notes Filed: 02/15/2023 7:45 AM Note Text: 02/15/2023 [facility] PHYSICAL THERAPY [...] to fx of foot. Kori Ryder PT, DPFisher-Titus Medical [id number] Miscellaneous Notes* Telephone Encounter - Seven Harrison RN - 02/14/2023 3:08 PM EDT message sent to patient and for further assessment. Awaiting reply. YVONNE Naik, RN February 14, 2023 3:08 PM * Telephone Encounter - Seven Harrison RN - 02/14/2023 3:04 PM EDT Received voicemail from patients' on Mon02/14/2023 2:28 PM Transcript below: This is Brennen Griffith. My phone number is [phone]. I'm calling for my Kevin Griffith. His [...] really bad or it's gonna be a fpc and I don't wannado that so please give me a call at your earliest convenience. Thank you. Abbey. Message shared with CAR for further guidance. YVONNE Naik, MISAEL February 14, 2023 3:04 PM * Telephone Encounter - Raeann Vizcarra - 02/14/2023 2:22 PM EDT Patient's spouse (Brennen) called requesting to speak to medical staff regarding Kevin's condition. Brennen reports Kevin has had an increase in falls/weakness that they believe to be related to Parkinson's. Brennen also states that Kevin has become more aggressive. Brennen is very concerned. Please call her at [phone]. Raeann Vizcarra documented in this encounterUniversity Hospitals Lake West Medical Center03-25-[address] Farooq [facility] February 11, 2023 2:01pm Note Date/Time February 11, 2023 1:2 0pm [facility] Medical Records Department [address] [place] [address] Emergency Department Summary 02/11/23 MR#: [id number] Acct: [id number] Name: KEVIN GRIFIFTH Rep #:[id number] 20 : 1945 77 From: [...] bear weight on it since the injury. [facility] Medical History Arthritis Back problem Cataract Essential [...] ER 1,000 mg tablet,extend release 24hr mp (KombiglyzeXR) 1 tab PO QDAY 04/06/18 [History Last [...] no malocclusion, able to move his mandible xdap-jvb-bcmny without any discomfort. Zygomatic arch is nontender [...] motor deficits and no sensory deficits noted [place] Coma Scale: document GCS findings Spontaneous Obeys [...] tissue swelling. Electronically Signed: Donnell Blanton MD, UMAIR at 13:46 EDT , Brain CT 02/11/23 13:22 IMPRESSION: No acute changes. Moderate cortical and central atrophy. Mild chronic microvascular ischemic change. Mild cerebellar atrophy. Electronically Signed: Donnell Blanton MD, UMAIR at 13:49 EDT , Discharge Plan Triage Chief Complaint: Fall [...] your Primary Care Provider. Call [facility] ([phone]) or report to the closest Emergency Room. Call 911 if necessary. 02/11/23 1401 <Electronically signed by Osman Farooq MD> Cosigner Signature (if applicable): CC: Dr. Ron Cooley MD; Dr. Arnaud Jean-Baptiste MD ~ Signed [facility] Work Phone: 1(757) 679-624402-24-2023 Miscellaneous Notes* Telephone Encounter - Karen Parra RN - 01/13/2023 2:26 PM EST Received voicemail 01-13-23 at 12:31 PM. My name is Brennen Griffith. My phone number is [phone]. This is in regard to Kevin Griffith. [...] PM EST Voicemail received January 10, 2023 5403 My name is Brennen Griffith. My phone number is [phone]. My 's name is Kevin Griffith. He viik patient of Dr. Nieves. His birthday is [...] to provider for review. documented in this encounterUniversity Hospitals Lake West Medical Center01-23-2023 NoteHNO ID: [id number] Author: Leni Ruiz APRN.FITNESS CLUB MANAGER Service: ? Author Type: Nurse Practitioner Type: Progress Notes Filed: 12/13/2022 10:48 PM Note Text: [facility] - FOLLOW UP EVALUATION Ron Cooley MD [address] [facility] [address] [facility] [address] Dear Ron Cooley MD: I had the [...] Flowsheet Row OT/PT/Speech Visit from 10/04/2022 in [facility] OT/PT/Speech Visit from 08/25/2022 in [facility] T [...] three times daily. insulin (more content not included)...[facility]01-23-2023 Instructions* Patient Instructions* Leni Ruiz APRN.FITNESS CLUB MANAGER - 12/12/2022 2:56 PM EST It was [...] canhave them on file here at the [facility]. Interested in clinical research? Not currently Movement Disorders Medication Schedule: Medications 6am 12pm 5pm Bedtime Sinemet 25/100 2 2 1 1 Sertaline 50mg 1 Return in about 6 months (around 06/11/2023). If there are any concerns before your next visit, please call or you can send a message through Bee Shield. You can also now schedule and select appointments through Bee Shield. Leni Ruiz APRN.FITNESS CLUB MANAGER documented in this encounterUniversity Hospitals Lake West Medical Center01-23-2023 History of Present illness Narrative* Leni Ruiz APRN.FITNESS CLUB MANAGER - 12/12/2022 2:00 PM EST [facility] - FOLLOW UP EVALUATION Ron Cooley MD [address] [facility] [address] [facility] [address] Dear Ron Cooley MD: I had the [...] Flowsheet Row OT/PT/Speech Visit from 10/04/2022 in [facility] OT/PT/Speech Visit from 08/25/2022 in [facility] T [...] D3 50 MCG, 2,000 UNIT, GUMMIES) fluticasone oeujwjt-vlcgzgmrmbyp-oelbegzlit (TRELEGY ELLIPTA) 200-62.5-25 mcg powder inhaler Inhale1 [...] 37.42 kg/m . Movement Disorders Scales Performed: Nish Cognitive Assessment (MoCA) Visuospatial/Executive 5 Naming 2 [...] parkinsonian. Then he underwent surgical evaluation at [facility] and DaTscan done there was indicative [...] canhave them on file here at the [facility]. Interested in clinical research? Not currently Updated Movement Disorders Medication Schedule: Medications 6am 12pm 5pm Bedtime Sinemet 25/100 2 2 1 1 Sertaline 50mg 1 Level of service : 51329 (40-54 min). Time spent 51 ( 1:54pm-2:45pm) min on the day of service, which included preparing to see the patient, exfq-fz-vqip patient care, completing clinical documentation, obtaining and/or reviewing separately obtained history, performing a medically appropriate examination, and counseling and educating the patient/family/caregiver. Leni Ruiz APRN.FITNESS CLUB MANAGER documented in this encounterUniversity Hospitals Lake West Medical Center11-21-2022 Miscellaneous Notes* Telephone Encounter - Thaddeus Wilkinson MD - 10/10/2022 3:30 PM EST Thanks for the FYI. Well done! JHS * Telephone Encounter - Seven Harrison RN - 10/10/2022 2:32 PM EST Received voicemail from patient on 10/10/2022 9:09 AM Transcript below: Morning this is Kevin Griffith and my phone number is [phone]. I calling to find out if there'sa [...] Voicemail left directing patient to a detailed Bee Shield message. Requested reply via MC or RCTO. Provided office number. Message shared with covering provider as CAR is OOO. Seven Harrison, MSN, RN October 10, 2022 2:44 PM documented in this encounterUniversity Hospitals Lake West Medical Center11-15-2022 NoteHNO ID: [id number] Author: Kori Ryder, PT, DPT Service: ? [...] Time Minutes (timed/untimed): 45 Kori Ryder PT, [facility]11-15-2022 History of Present illness Narrative* Kori BENY Ryder, DPT - 10/04/2022 11:59 AM EST Episode [...] Kori Ryder PT, DPT documented in this encounterUniversity Hospitals Lake West Medical Center10-28-2022 Miscellaneous Notes* Addendum Note - Jaylyn Nieves [...] Adams - 09/16/2022 11:43 AM EDTAddended by: ELNA MAY on: 09/16/2022 11:43 AM Modules accepted: Orders * Telephone Encounter - Lena Adams - 09/16/2022 11:40 AM EDT Script pending to go to [facility]. documented in this encounterUniversity Hospitals Lake West Medical Center10-28-2022 Miscellaneous Notes* Telephone Encounter - Seven Harrison RN - 09/16/2022 8:48 AM EDT Called and left voicemail that an updated RX had been sent for the Cymbalta. Provided office number for RCTO and option to message via Bee Shield. YVONNE Naik RN September 16, 2022 8:48 AM * [...] New order pended to this encounter. YVONNE Naik RN September 15, 2022 4:40 PM * Telephone Encounter - Seven Harrison RN - 09/14/2022 2:41 PM EDT Called daughter Barbi and shared update. She will confer with her mother and father and update theoffice as needed. YVONNE Naik RN September 14, 2022 2:42 PM * [...] the family's care. Update shared with CAR. Seven Harrison, MSN, RN September 14, 2022 1:54 PM * Telephone Encounter - Seven Harrison RN - 09/13/2022 12:30 PM EDT Returned call to Brennen. No reply, left detailed message requesting [facility]O. Provided office number radl back. Awaiting reply. YVONNE Naik, RN September 13, 2022 12:31 PM * Telephone Encounter - Lena Adams - 09/12/2022 2:34 PM EDT NI PHONE NAME OF CALLER: Brennen RELATIONSHIP TO PATIENT: spouse PATIENT ID'D BY NAME/: yes REASON FOR CALL: States that his PD symptoms are worsening and she would like to speak with Stefania. CALLBACK #: [phone] OK TO LEAVE MESSAGE: ok only on this number - do not leave at home number LAST FUV: 08/04/22 with KA documented in this encounterUniversity Hospitals Lake West Medical Center10-27-2022 NoteHNO ID: [id number] Author: Kori Ryder, PT, DPT Service: ? [...] Patient to be seen for Therapeutic exercise (16323);Neuromuscular re-education (55484);Manual therapy (43196);Therapeutic activities (49180);Self-half-way management (97099);Gait Training (10418);Functional training;General Conditioning;Body Mechanics Training;Patient/Family/Caregiver Education PLAN FOR [...] Time Minutes (timed/untimed): 45 (more content not included)...[facility] CenterDdtzljru43-08-3814 NoteHNO ID: [id number] Author: Aleida Ramirez MD Service: ? Author [...] could not see the pt. REFERRAL SOURCE: [facility] Physician - Dr. Nieves CHIEF COMPLAINT: [...] 1 tablet by mouth twice daily. fluticasone ztldsbn-bwrhginokovk-ftaoysgszr (TRELEGY ELLIPTA) 200-62.5-25 mcg powder inhaler Inhale [...] Negative for malaise, signif (more content not included)...[facility]10-14-2022 History of Present illness Narrative* Aleida [...] could not see the pt. REFERRAL SOURCE: [facility] Physician - Dr. Nieves CHIEF COMPLAINT: [...] Diagnosis Date Chronic obstructive pulmonary disease (COPD) ([facility]) Diabetes (HCC) Generalized anxiety disorder H/O seasonal [...] 1 tablet by mouth twice daily. fluticasone rvqdfda-upmecjqempty-lmelxvicwi (TRELEGY ELLIPTA) 200-62.5-25 mcg powder inhaler Inhale1 [...] prior psychiatrist Therapist: No prior therapist Current Director Hair: None Last Hospitalization: Denies hospitalization. ECT: None Previous Discontinued Psychiatric Med Trials: None SUBSTANCE USE HISTORY: Nicotine: 40 py, quit 23 years ago Caffeine: Coffee, 3 cups/day Alcohol: Drank when he was younger, Marijuana: No history of use or dependence Cocaine: No history of use or dependence Opiods: No history of use or dependence SPIRITUALITY: Yazdanism [facility]: Kevin Griffith is the oldest of 6 siblings. The patient was born and raised in [place]. He completed school He described his childhood [...] PAGER : see directory documented in this encounterUniversity Hospitals Lake West Medical Center10-06-2022 NoteHNO ID: [id number] Author: Kori Ryder, PT, DPT Service: ? [...] Time Minutes (timed/untimed): 38 Kori Ryder PT, [facility]10-06-2022 History of Present illness Narrative* Kori Ryder PT, T - 08/25/2022 5:11 PM EDT Episode Visit [...] Time Minutes (timed/untimed): 38 Kori Ryder PT, DPT documented in this encounterUniversity Hospitals Lake West Medical Center09-22-2022 NoteHNO ID: [id number] Author: Kori Ryder PT, DPT Service: ? [...] Planned: 4 Planned Treatment Interventions: Therapeutic exercise (18994);Neuromuscular re-education (15600);Manual therapy (49276);Therapeutic activities (59559);Self-half-way management (53111);Gait Training (56369);Functional training;General Conditioning;Body Mechanics Training;Patient/Family/Caregiver Education PLAN FOR [...] the average of the (more content not included)...[facility] CenterYvpwssou47-23-4864 NoteHNO ID: [id number] Author: Jaylyn Nieves MD Service: ? Author Type: Physician Type: Progress Notes Filed: 08/04/2022 5:35 PM Note Text: [facility] - FOLLOW UP EVALUATION Ron Cooley MD [address] [facility] [address] [facility] [address] I had the pleasure of seeing Mr. [...] 1 tablet by mouth twice daily. fluticasone uiurinq-wxwacummvwti-dxatjwzwpp (TRELEGY ELLIPTA) 200-62.5-25 mcg powder inhaler Inhale [...] 24 hr table (more content not included)... [facility]09-15-2022 Instructions* Patient Instructions* Jaylyn Nieves MD [...] or you can send a message through Bee Shield. You can also now schedule and select appointments through Bee Shield. Jaylyn Nieves MD documented in this encounterUniversity Hospitals Lake West Medical Center09-15-2022 History of Present illness Narrative* Jaylyn Nieves MD - 08/04/2022 2:20 PM EDT [facility] - FOLLOW UP EVALUATION Ron Cooley MD [address] [facility] [address] [facility] [address] I had the pleasure of seeing Mr. [...] 1 tablet by mouth twice daily. fluticasone qapdxfw-moetofeogvrm-elizizuolz (TRELEGY ELLIPTA) 200-62.5-25 mcg powder inhaler Inhale1 [...] parkinsonian. Then he underwent surgical evaluation at [facility] and DaTscan done there was indicative [...] gait he reports both lightheadedness and imbalance. [place] symptomatic today upon standing but orthostatics were [...] or around: 11/03/22 Level of service : 44264 (40-54 min). Time spent 45 min on the day of service, which included preparing to see the patient, bqdh-fk-fsxx patient care, completing clinical documentation, performing a [...] Sincerely, Jaylyn Nieves MD documented in this encounterUniversity Hospitals Lake West Medical Center09-09-2022 NoteHNO ID: [id number] Author: Kori Ryder PT, DPT Service: ? Author Type: Physical Therapist Type: Progress Notes Filed: 07/29/2022 4:54 PM Note Text: 07/29/2022 [facility] PHYSICAL THERAPY [...] scheduled additional follow-up appointments. Kori Ryder PT, DPTHOProtestant Deaconess [id number] Miscellaneous Notes* Telephone Encounter - Seven Harrison RN - 07/21/2022 12:08 PM EDT Received voicemail from patient's on Rosalia 07/21/2022 10:52 AM Transcript below: Kaila my name is Brennen Griffith. My 's name is Kevin Griffith. He is a patient of Dr. Gordillo. My phone number is [phone]. I'm calling to speak to somebody regarding [...] Updates shared with MD CAR & SS, LOAN ANALYST. If any guidance is suggested, RN will contact with feedback. Seven Harrison, MSN, RN July 21, 2022 12:42 PM documented in this encounterUniversity Hospitals Lake West Medical Center06-29-2022 Miscellaneous Notes* Telephone Encounter - Jaylyn Nieves [...] REJI: No Blossom S documented in this encounterUniversity Hospitals Lake West Medical Center05-10-2022 NoteHNO ID: [id number] Author: Maine Medel, PT, DPT Service: ? [...] SLS >10 seconds B Become involved with [facility] in home exercise program. Patient will demonstrate increase in B hip strength strength to 5/5 during manual muscle testing in order to improve function for balance Increase strength in ankle to 5/5 for balance. Be able to turn in a [place] apache in 8 steps. Decrease tug to <10 seconds without AD for improved richard and step length Patient Goals: to learn about PD, to reduce falls Planned Interventions, Frequency, and Duration: Current Frequency: 1x/week Duration: 4 weeks (starting in one month) Total Number of Visits Planned: 4 Planned Treatment Interventions: Therapeutic exercise (72208);Neuromuscular re-education (23553);Manual therapy (68670);Therapeutic activities (59761);Self-half-way management (66007);Gait Training (93734);Functional training;General Conditioning;Body Mechanics Training PLAN FOR NEXT [...] for double vision Visi (more content not included)...[facility] CenterEaajlfjk47-27-0819 NoteHNO ID: [id number] Author: MANUEL Grande/Eric Service: ? Author Type: Occupational Therapist Type: Progress Notes Filed: 03/29/2022 5:40 PM Note Text: Episode Visit Count: 2 Therapist That Will Oversee The Plan Of Care: Maria Isabel Romano Start of Care Date: 03/29/22 Onset Date: 06/14/21 Plan of Care Certification Date: 03/29/22 Next Certification Due Date: 03/29/22 Patient Identified by Name and Date of : Yes [facility] OCCUPATIONAL THERAPY [...] WITH LEVEL OF FUNCTION: Hand Strength R Hardware Technician Position 2 (lbs): 71 lbs L Hardware Technician Position 2 (lbs): 60 lbs R Lateral [...] States/Identifies;Return Demonstration TREATMENT: OT Treatment Interventions : Self-Halfway Management Evaluation Self-Halfway Management: 1: Pt and spouse educated in role of OT 2: Discussed importance of hydrating with medication and avoiding proteins with meds (more content not included)...[facility] Medical CenterFfbadogh53-14-9327 NoteHNO ID: [id number] Author: Sakina Ro CCC-CHIMNEY REPAIRER Service: ? Author Type: Speech Language Pathologist Type: Progress Notes Filed: 03/29/2022 3:59 PM Note Text: Episode Visit Count: 1 Therapist That Will Oversee The Plan Of Care: Andrade Start of Care Date: 03/29/22 Onset Date: 11/20/20 Plan of Care Certification Date: 03/29/22 Patient Identified by Name and Date of : Yes [facility] SPEECH and [...] position 20-30 minutes following all oral intake CHIMNEY REPAIRER Recommendations: Swallowing Precautions;Discontinue Speech Therapy Results and [...] MBS (pt reports had MBS done at [place] last year, which pt was told 'he [...] clear/cough after water (more content not included)... [facility] CenterYoybeyqq80-06-5607 History of Present illness Narrative* Maine Medel [...] SLS >10 seconds B Become involved with [facility] [place] in home exercise program. Patient will demonstrate increase in B hip strength strength to 5/5 during manual muscle testing inorder to improve function for balance Increase strength in ankle to 5/5 for balance. Be able to turn in a [place] in 8 steps. Decrease tug to <10 seconds without AD for improved richard and step length Patient Goals: to learn about PD, to reduce falls Planned Interventions, Frequency, and Duration: Current Frequency: 1x/week Duration: 4 weeks (starting in one month) Total Number of Visits Planned: 4 Planned Treatment Interventions: Therapeutic exercise (50004);Neuromuscular re- education (21874);Manual therapy (10729);Therapeutic activities (72592);Self- half-way management (88358);Gait Training (92525);Functional training;General Conditioning;Body Mechanics Training PLAN FOR NEXT [...] step length 5: education about getting to [employer] sneakers and bike research Skilled Intervention: Patient [...] Maine Medel PT, DPT documented in this encounterUniversity Hospitals Lake West Medical Center05-10-2022 History of Present illness Narrative* Sakina Ro CCC-CHIMNEY REPAIRER - 03/29/2022 2:49 PM EDT Episode Visit Count: 1 Therapist That Will Oversee The Plan Of Care: Andrade Start of Care Date: 03/29/22 Onset Date: 11/20/20 Plan of Care Certification Date: 03/29/22 Patient Identified by Name and Date of : Yes [facility] SPEECH and [...] position 20-30 minutes following all oral intake CHIMNEY REPAIRER Recommendations: Swallowing Precautions;Discontinue Speech Therapy Results and [...] MBS (pt reports had MBS done at [place] last year, which pt was told 'he [...] Eval Sound Production with Language Expression and Undertaker Helper (14366) Swallow / Dysphagia (39271): Skilled Intervention: Educated and advised patient / caregiver on texture and liquid consistency recommendations., Instructed patient / caregiver on recommended compensatory strategies to maximize safety with oral intake while maintaining nutrition, hydration and medication stability. Speech/Language Therapy (83233): Skilled Intervention: Educated and instructed patient on [...] Eval Sound Production with Language Expression and Undertaker Helper (40372), Clinical Swallow Evaluation (86426), Speech Treatment (69407) and Dysphagia Treatment (46329) Total time / Length of visit: 60 minutes MARSHA HopperCHIMNEY REPAIRER documented in this encounterUniversity Hospitals Lake West Medical Center05-10-2022 NoteHNO ID: [id number] Author: Jaylyn Nieves MD Service: ? Author Type: Physician Type: Progress Notes Filed: 03/29/2022 7:35 PM Note Text: [facility] - Multidisciplinary Clinic Jaylyn Nieves [address] [facility] [address] [facility] [address] Ron Cooley MD [address] [facility] [address] [facility] [address] I had the pleasure of seeing Mr. [...] since last visit underwent surgical evaluation at [facility] and DaTscan done there indicative of [...] addressed during this visit (more content not included)...[facility]05-10-2022 Instructions* Patient Instructions* Jaylyn Nieves MD [...] or you can send a message through Bee Shield. You can also now schedule and select appointments through Bee Shield. Jaylyn Nieves MD documented in this encounterUniversity Hospitals Lake West Medical Center05-10-2022 History of Present illness Narrative* Jaylyn Nieves MD - 03/29/2022 12:27 PM EDT [facility] - Multidisciplinary Clinic Jaylyn Nieves [address] [facility] [address] Ron Cooley MD [address] [facility] [address] [facility] [address] I had the pleasure of seeing Mr. [...] Then since last visit [facility] and DaTscan done there indicative of [...] in 1 week Level of service : 12703 (40-54 min). Time spent 53 min on the day of service, which included preparing to see the patient, scni-nt-trth patient care, completing clinical documentation, counseling and [...] Sincerely, Jaylyn Nieves MD documented in this encounterUniversity Hospitals Lake West Medical Center05-04-2022 Miscellaneous Notes* Telephone Encounter - Bryanna Haas MA - 03/23/2022 10:44 AM EDT I called patient to get him pre-roomed for his upcoming appointment. I had to leave a voicemail fora returned call. If patient calls back please transfer call to myself or a clinical staff member to complete this process. Thanks! Bryanna Haas MA documented in this encounterUniversity Hospitals Lake West Medical Center04-28-2022 NoteHNO ID: [id number] Author: Jaylyn Nieves MD Service: ? Author Type: Physician Type: Progress Notes Filed: 03/18/2022 4:12 PM Note Text: [facility] - FOLLOW UP EVALUATION No referring provider defined for this encounter. Ron Cooley MD [address] [facility] [address] I had the pleasure of seeing Mr. [...] to be helpful Interval History Seen at [facility] for surgical evaluation. SDR was too [...] mouth three times daily. (more content not included)...[facility]04-28-2022 Instructions * Patient Instructions* Jaylyn Nieves [...] morning - Movement Disorders Medication Schedule: Sinemet 2 2 2 No follow-ups on file. If there are any concerns before your next visit, please call or you can send a message through Bee Shield. You can also now schedule and select appointments through Bee Shield. Jaylyn Nieves MD [facility] Pre-Visit Instructions Welcome to the [facility]! These visits will consist of four separate appointments provided by Neurology, Speech Therapy, Physical Therapy and Occupational Therapy. The appointments will take place at the [facility] and all occur on the same day. [...] appointment. This call will serve as a tff-qyuwx-rb and be used to review your medications, [...] caregivers, and staff alike. documented in this encounterUniversity [facility]04-28-[facility]22 History of Present illness Narrative* Jaylyn Nieves MD - 03/17/2022 2:51 PM EDT [facility] - FOLLOW UP EVALUATION No referring provider defined for this encounter. Ron Cooley MD [address] [facility] [address] I had the pleasure of seeing Mr. [...] to be helpful Interval History Seen at [facility] for surgical evaluation. SDR was too [...] Then since last visit [facility] and DaTscan done there indicative of [...] or around: 07/17/22 Level of service : 25216 (40-54 min). Time spent 54 min on the day of service, which included preparing to see the patient, qknm-hp-ftlu patient care, completing clinical documentation, obtaining and/or [...] Sincerely, Jaylyn Nieves MD documented in this encounterUniversity [facility]als [facility]03-24-2022 History of Present illness Narrative* Jaspreet Qureshi MA - 02/10/2022 11:48 AM EDT Images from the original note were not included. SDR for Yujose miguel_S came in at 0.34 with 973 available elements. Other than the low SDR no significantCT deviations noted. documented in this [id number] History of Present illness Narrative* Barb Morton MD - 12/22/2021 10:05 AM EST Video Visit [facility], NEUROSCIENCE [facility] [address] [facility] [address] Via Real-time Synchronous Audiovisual [facility] 12/21/2021 Barb Morton MD Provider Location: [facility] Patient Location Systems Auditor: None Patient Location: Patient's Home Patient: Kevin [...] that there are some limitations compared to lkgh-ig-aajg evaluations. We elected to proceed. Subjective Patient [...] Office# Barb Morton MD documented in this [id number] Instructions* Patient Instructions* Barb Morton MD - 12/21/2021 1:33 PM EST Parkinson's Disease Continue the medication Use seroquel at night If you decide that you want to switch to Dr Royal let me know documented in this [id number] Miscellaneous Notes* Telephone Encounter - Jaspreet Qureshi MA - 11/09/2021 11:43 AM EST Spoke to Bryanna (Pharmacist) for clarification of patient's prescription carbidopa-levodopa (SINEMET) 25-100 mg per tablet [facility] will disp 540 (90 day supply) will 3 refills Please sign script that was called in documented in this [id number] History of Present illness Narrative* Barb Morton [...] pt on at 1230pm. documented in this [id number] History of Present illness Narrative* Barb Morton MD - 11/05/2021 12:21 PM EST I called on 11/05/21 to discuss the results of the meeting and to discuss questions documented in this [id number] History of Present illness Narrative* Jim Bradfodr RN - 11/05/2021 12:03 PM EST As [...] tremor. Therefore, the patient was evaluated by ourctvement disorders neurologist, Dr. Barb Morton, as to [...] Dr Morton will call. documented in this [id number] History of Present illness Narrative* Jaspreet Qureshi MA - 11/03/2021 2:29 PM EST Images from the original note were not included. SDR - 0.34 with 973 available elements. Other than the low SDR no significant CT deviations noted. documented in this [id number] History of Present illness Narrative* Sarah Mckenzie, PT - 10/28/2021 11:00 AM EST Images from the original note were not included. [facility] OUTPATIENT REHABILITATION Physical Therapy Evaluation Today's Date [...] whether he wants to follow-up hereor in [place] as it is significantly closer to home. [...] medications for tremor - has tried one. [place] drunk all of th time. Freezing of [...] mobility Social Support: Patient lives with others. Methodist, social, or cultural considerations to be made [...] in the last 12 months: Yes (concussion) Methodist, social, or cultural considerations to be made [...] at this time were answered. CPT Code 11710 Low 99561 Moderate 57189 High History 0 1-2 3+ Comorbidities: chronic [...] Clinical Impression: . Kevin Griffith presents to [facility] outpatient neurological rehab services for PT [...] above number. Sarah Mckenzie, PT STATE LICENSE, PT.[id number] documented in this [id number] Instructions* Patient Instructions* Barb Morton MD - 10/05/2021 11:[address] Head Physical therapy DATSCAN-the yes/no Parkinson's disease test Jim Bradford is the navigator Dr. Barb Morton MD Neurology Office Information Jaspreet Qureshi MA Office# documented in this [id number] History of Present illness Narrative* Barb Morton [...] whether he wants to follow-up hereor in [place] as it is significantly closer to home. [...] Without Contrast; Future - Ambulatory Ref to [facility] (PT/OT/ST); Future Patient Instructions Tremor CT Head Physical therapy DATSCAN-the yes/no Parkinson's disease test Jim Bradford is the navigator Dr. Barb Morton MD Neurology Office Information Jaspreet Qureshi MA Office# Dr. Barb Morton MD Neurology Office Information Jaspreet Qureshi MA Office# Barb Morton MD documented in this [id number] History of Present illness Narrative* Roberto Carlos [...] with simple mask at 10 LPM oxygen. medical record technician called. * Mame Machado PA-C - 05/19/2021 [...] informed. Mame Machado PA-C documented in this [facility] Work Phone: [phone] 354-559006-16-2021 Hospital Discharge instructions* Instructions* Kori Casillas, RN - 05/05/2021 Shower with the Hibiclens product given to you in Pre-Admission Testing. Follow the instructions and wear clean clothes to bed and clean linen on the bed the night before surgery. Follow the instructions and shower the morning of surgery and wear clean, comfortable clothes to the hospital. Please bring your [employer] Surgical Information folder on the day of [...] call your surgeon. You may use the [employer] parking located at the main entrance on [address] [facility] and take the H elevator to the first floor for same day surgery. Take a left after exiting the elevator and check in at the desk. * Attachments The following attachments cannot be sent through Care Everywhere. * Laminotomy and Laminectomy: General Info (Greenlandic) documented in this encounter[facility] Work Phone: Discharge summary Author Surya Dumont [facility] Note Date/Time April 09, 2025 12:55 pm [facility] Medical Records Department [address] [place] [address] Emergency Department Summary 04/09/25 MR#: [id number] Acct: [id number] Name: KEVIN GRIFFITH Rep #:[id number] : 1945 79 From: [...] take blood thinners. Tetanus Immunization: <5 years [facility] Medical History Parkinson's disease Right bundle branch [...] change from the prior exam. Reading Location: [facility] Cervical Spine CT 04/09/25 11:34 IMPRESSION: 1. No acute fracture. 2. Degenerative changes of the cervical spine as described. Reading Location: [facility] Discharge Plan Triage Chief Complaint: Head Injury ED Provider: Surya Dumont Dx/Rx/DC Orders Clinical Impression: Fall, Laceration of scalp Instructions: ED Head Injury (Adult), ED Laceration Scalp Stitches or Brandi Prescriptions: No Action pravastatin 80 mg tablet [...] wound, new or worsening symptoms. Print Language: Greenlandic Disposition Disposition: Home, Self Care What to do if you have Problems For any increased pain, shortness of breath, bleeding, nausea or vomiting, chestpain, or any unexpected problems, contact your Primary Care Provider. Call [facility] ([phone]) or report to the closest Emergency Room. Call 911 if necessary. 04/09/25 1257 <Electronically signed by Surya Dumont MD> Cosigner Signature (if applicable): CC: Dr. Ron Cooley MD ~ Signed [facility] Work Phone: Evaluation note* Diagnosis Pre-op testing- Primary Preoperative examination, unspecified Abnormal EKG Nonspecific abnormal electrocardiogram (ECG) (EKG) Shortness of breath documented in this encounter [facility] Work Phone: Evaluation note* Diagnosis Abnormal electrocardiogram (ECG) (EKG) Shortness of breath Pre-op testing Preoperative examination, unspecified Abnormal EKG Nonspecific abnormal electrocardiogram (ECG) (EKG) documented in this encounter [facility] Work Phone: Evaluation note* Diagnosis Tremor, essential- Primary Essential and other specified forms of tremor documented in this encounter [facility] note* Diagnosis Tremor- Primary Abnormal involuntary movements documented in this encounter [facility] note* Diagnosis Tremor Abnormal involuntary movements Impaired mobility and activities of daily living Impairment of balance documented in this encounter [facility] note* Diagnosis Parkinson's disease (HCC)- Primary Paralysis agitans documented in this encounter [facility] noteNo assessment information availableWUniversity Hospitals Health System Work Phone: Evaluation note* Diagnosis Parkinsonism, unspecified Parkinsonism type (HCC)- Primary Essential tremor Essential and other specified forms of tremor Dysphagia, unspecified type Gait instability Abnormality of gait documented in this encounter [facility] note* Diagnosis Parkinsonism, unspecified Parkinsonism type (HCC)- Primary Dysphagia, oropharyngeal phase Dysarthria documented in this encounter [facility] note* Diagnosis Parkinson disease (HCC)- Primary Paralysis agitans documented in this encounter [facility] note* Diagnosis Gait instability- Primary Abnormality of gait Parkinsonism, unspecified Parkinsonism type (HCC) Dysphasia Other speech disturbance Oropharyngeal dysphagia Dysphagia, oropharyngeal phase Decreased activities of daily living (ADL) documented in this encounter [facility] note* Diagnosis Onset Date Resolution Status Essential (primary) hypertension chronic Paroxysmal atrial fibrillation [facility] Work Phone: Evaluation note* Diagnosis Parkinsonism, unspecified Parkinsonism type (HCC)- Primary Depression, unspecified depression type Anxiety Anxiety state, unspecified Orthostatic lightheadedness Dizziness and giddiness Dysphagia, unspecified type documented in this encounter [facility] note* Diagnosis Parkinsonism, unspecified Parkinsonism type (HCC)- Primary Gait instability Abnormality of gait Leg weakness, bilateral Other musculoskeletal symptoms referable to limbs Imbalance Abnormality of gait [facility]* Diagnosis MELISSA (generalized anxiety disorder)- Primary Generalized anxiety disorder Depression, unspecified depression type Parkinsonism, unspecified Parkinsonism type (HCC) documented in this encounter [facility] note* Diagnosis Parkinsonism, unspecified Parkinsonism type (HCC)- Primary Gait instability Abnormality of gait Leg weakness, bilateral Other musculoskeletal symptoms referable to limbs Imbalance Abnormality of gait [facility]* Diagnosis Parkinsonism, unspecified Parkinsonism type (HCC)- Primary Orthostatic hypotension Anxiety Anxiety state, unspecified documented in this encounter [facility] note* Diagnosis Onset Date Resolution Status Parkinsons acute Essential (primary) hypertension chronic HLD (hyperlipidemia) chronic Paroxysmal atrial fibrillation [facility] Work Phone: Evaluation note* Diagnosis Onset Date Resolution Status Polyneuropathy acute Abnormality of gait and mobility chronic Dementia chronic Parkinson's disease chronic Essential (primary) hypertension chronic HLD (hyperlipidemia) chronic Paroxysmal atrial fibrillation [facility] Work Phone: Evaluation note* Diagnosis Onset Date Resolution Status Abnormality of gait and mobility chronic Dementia chronic Parkinson's disease chronic Polyneuropathy chronic Fatigue noneactive [facility] Work Phone: Evaluation note* Diagnosis Onset Date Resolution Status Diplopia acute Right abducens nerve palsy a cute Abnormality of gait and mobility chronic Dementia chronic Parkinson's disease chronic Polyneuropathy chronic [facility] Work Phone: Evaluation note* Diagnosis Facial laceration, initial encounter- Primary Fall, initial encounter Open fracture of nasal bone, initial encounter [facility] Work Phone: Hospital Discharge instructions Additional Instructions Leave boot on until you [facility] Work Phone: Reason for Referral Status Reason Specialty Diagnoses / Procedures Re ferred By Contact Referred To Contact Open Cardiology Diagnoses Pre-op testing Abnormal EKG Shortness of breath Procedures ECHO Pharmacological Stress Test Raeann Holland, ELECTRONICS TEACHER - FITNESS CLUB MANAGER [address] [facility] [address] [place] [address] Specialty Diagnoses / Procedures Referred By Contac t Referred To Contact Neurology Diagnoses Tremor, essential Jolliff, Patricia Ramon MD [address] [facility] [address] [place] [address] Barb Morton MD [address] [place] [address] [address] [place] [address] Referral ID Status Reason Start Date Expiration Date V isits Requested Visits Authorized [id number] Pending Review 09/27/2021 09/27/2022 1 1 Specialty Diagnoses / Procedures Referred By Contac t Referred To Contact Rehabilitation [place] [address] [place] [address] [address] [place] [address] Referral ID Status Reason Start Date Expiration Date V isits Requested Visits Authorized [id number] Authorized 10/05/2021 10/05/2022 1 1 Specialty Diagnoses / Procedures Referred By Contac t Referred To Contact Radiology Diagnoses Tremor Procedures CT Head Or Brain Without Contrast Barb Morton MD [address] [facility] [address] [place] [address] Referral ID Status Reason Start Date Expiration Date V isits Requested Visits Authorized [id number] New Request 10/05/2021 10/05/2022 1 1 Specialty Diagnoses / Procedures Referred By Contac t Referred To Contact Radiology Diagnoses Tremor Procedures NM Brain Datscan SPECT CT Single Area Single Day Barb Morton MD [address] [facility] [address] [place] [address] Nuclear Medicine [address] [place] [phone] Referral ID Status Reason Start Date Expiration Date V isits Requested Visits Authorized [id number] Pending Review 10/05/2021 10/05/2022 4 4 Specialty Diagnoses / Procedures Referred By Contac t Referred To Contact Diagnoses Parkinsonism, unspecified Parkinsonism type (HCC) Procedures PROVIDER ORDERED FOLLOW UP OFFICE/OUTPATIENT [facility] 60-74 MINUTES Jaylyn Nieves MD [address] [address] Referral ID Status Reason Start Date Expiration Date Visits Requested Visits Authorized [id number] Authorized PCP Requested Referral 03/17/2022 06/15/2022 1 1 Specialty Diagnoses / Procedures Referred By Contac t Referred To Contact Neurology / NEUROLOGICAL [place] Diagnoses Parkinsonism, unspecified Parkinsonism type (HCC) Procedures CONSULT TO [facility] OFFICE/OUTPATIENT [facility] 60-74 MINUTES Jaylyn Nieves MD [address] [address] [place] [address] [place] [address] Referral ID Status Reason Start Date Expiration Date Visits Requested Visits Authorized [id number] Authorized PCP Requested Referral 03/17/2022 03/17/2023 1 1 Specialty Diagnoses / Procedures Referred By Contac t Referred To Contact [facility] Diagnoses Parkinsonism, unspecified Parkinsonism type (HCC) Gait instability Procedures CONSULT TO PHYSICAL THERAPY PHYSICAL THERAPY EVALUATION HIGH COMPLEX 45 MINS Jaylyn Nieves MD [address] [address] Referral ID Status Reason Start Date Expiration Date Visits Requested Visits Authorized [id number] Authorized PCP Requested Referral Auto-Generate d Referral 03/29/2022 03/29/2023 99 99 Specialty Diagnoses / Procedures Referred By Contac t Referred To Contact [facility] Diagnoses Parkinsonism, unspecified Parkinsonism type (HCC) Gait instability Decreased activities of daily living (ADL) Procedures CONSULT TO COLLECTION SPECIALIST OCCUPATIONAL THERAPY EVAL HIGH COMPLEX 60 MINS Jaylyn Nieves MD [id number] [address] Referral ID Status Reason Start Date Expiration Date Visits Requested Visits Authorized [id number] Authorized PCP Requested Referral Auto-Generate d Referral 03/29/2022 03/29/2023 99 99 Specialty Diagnoses / Procedures Referred By Contac t Referred To Contact Diagnoses Parkinsonism, unspecified Parkinsonism type (HCC) Oropharyngeal dysphagia Procedures CONSULT TO SPEECH THERAPY Jaylyn Nieves MD [address] [place] [address] Referral ID Status Reason Start Date Expiration Date Visits Requested Visits Authorized [id number] Authorized PCP Requested Referral 03/29/2022 06/27/2022 3 3 Referral ID Status Reason Start Date Expiration Date Visits Requested Visits Authorized [id number] Authorized PCP Requested Referral 08/04/2023 1 1 Specialty Diagnoses / Procedures Referred By Contac t Referred To Contact [facility] Diagnoses Parkinsonism, unspecified Parkinsonism type (HCC) Procedures CONSULT TO PHYSICAL THERAPY PHYSICAL THERAPY EVALUATION HIGH COMPLEX 45 MINS Jaylyn Nieves MD [address] [address] Referral ID Status Reason Start Date Expiration Date Visits Requested Visits Authorized [id number] Authorized PCP Requested Referral Auto-Generate d Referral 08/04/2022 08/04/2023 99 99 Specialty Diagnoses / Procedures Referred By Contac t Referred To Contact Diagnoses Parkinsonism, unspecified Parkinsonism type (HCC) Depression, unspecified depression type Procedures CONSULT TO PSYCHIATRY OFFICE/OUTPATIENT [facility] 60-74 MINUTES Jaylyn Nieves MD [address] [address] Referral ID Status Reason Start Date Expiration Date Visits Requested Visits Authorized [id number] Pending Review PCP Requested Referral 08/04/2022 08/04/2023 1 1 Specialty Diagnoses / Procedures Referred By Contac t Referred To Contact Diagnoses Depression, unspecified depression type Procedures PROVIDER ORDERED FOLLOW UP OFFICE/OUTPATIENT [facility] 60-[place] [address] [place] [address] Referral ID Status Reason Start Date Expiration Date Visits Requested Visits Authorized [id number] Authorized PCP Requested Referral 11/28/2022 09/02/2023 1 1 Specialty Diagnoses / Procedures Referred By Contac t Referred To Contact [facility] Diagnoses Parkinsonism, unspecified Parkinsonism type (HCC) Procedures CONSULT TO COLLECTION SPECIALIST OCCUPATIONAL THERAPY EVAL HIGH COMPLEX 60 MINS Leni Ruiz, ELECTRONICS TEACHER.FITNESS CLUB MANAGER [address] [place] [address] [facility] [address] [address] Referral ID Status Reason Start Date Expiration Date Visits Requested Visits Authorized [id number] Authorized PCP Requested Referral Auto-Generate d Referral 12/12/2022 12/12/2023 99 99 Specialty Diagnoses / Procedures Referred By Contac t Referred To Contact [facility] Diagnoses Parkinsonism, unspecified Parkinsonism type (HCC) Procedures CONSULT TO PHYSICAL THERAPY PHYSICAL THERAPY EVALUATION HIGH COMPLEX 45 MINS Leni Ruiz, ELECTRONICS TEACHER.FITNESS CLUB MANAGER [address] [place] [address] [facility] [place] [id number] [place] [address] Referral ID Status Reason Start Date Expiration Date Visits Requested Visits Authorized [id number] Authorized PCP Requested Referral Auto-Generate d Referral 12/12/2022 12/12/2023 99 99 Advance Directives No Advanced Directives Records FoundDocuments on File Type Date Recorded Patient Stamp Clerk Expl anation ACP-Advance Directive ACP-Power of Flight Engineer Performance Qualified Latest Code Status on File Code Status Date Activated Date Inactivated Comments Full Code 04/17/2018 6:13 AM 04/17/2018 1:26 PM Documents on File Type Date Recorded Patient Stamp Clerk Expl anation ACP-Advance Directive ACP-Power of Flight Engineer Performance Qualified Latest Code Status on File Code Status Date Activated Date Inactivated Comments Full Code 05/19/2021 6:48 AM Full Code 04/17/2018 6:13 AM 04/17/2018 1:26 PM Documents on File Type Date Recorded Patient Stamp Clerk Expl anation Advance Directives and Living Will Documents on File Type Date Recorded Patient Stamp Clerk Expl anation Advance Directives and Living Will Documents on File Type Date Recorded Patient Stamp Clerk Expl anation Advance Directives and Livin g Will 11/01/2021 10:44 AM Advance Directive Response Recorded Date/ Time Living Will Yes January 28, 2022 2:22am Power of Flight Engineer Performance Qualified Yes January 28 2:22am Advance Directive Response Recorded Date/ Time Name of Medical Power of Flight Engineer Performance Qualified BRENNEN GRIFFITH ( ) January 28, 2022 2:22am Living Will Yes January 28, 2022 2:22am Power of Flight Engineer Performance Qualified Yes January 28 2:22am Advance Directive Response Recorded Date/ Time Living Will Yes January 28, 2022 1:22am Power of Flight Engineer Performance Qualified Yes January 28 1:22am Advance Directive Response Recorded Date/ Time Name of Medical Power of Flight Engineer Performance Qualified February 11, 2023 12:56pm Living Will Yes February 11, 2023 12:56pm Power of Flight Engineer Performance Qualified Yes February 11 12:56pm Advance Directive Response Recorded Date/ Time Living Will Yes February 11, 2023 12:56pm Power of Flight Engineer Performance Qualified Yes February 11 12:56pm Advance Directive Response Recorded Date/ Time Living Will Yes February 11, 2023 11:56am Power of Flight Engineer Performance Qualified Yes February 11 11:56am Advance Directive Response Recorded Date/ Time Living Will Yes February 11, 2023 12:56pm Power of Flight Engineer Performance Qualified Yes February 11 12:56pm Living Will Yes October 12 12:40pm Power of Flight Engineer Performance Qualified Yes October 12, 2024 12:40pm Name of Medical Power of Flight Engineer Performance Qualified brennen griffith October 12, 2024 12:40pm Living Will Yes December 05 6:16pm Power of Flight Engineer Performance Qualified Yes December 05, 2024 6:16pm Name of Medical Power of Flight Engineer Performance Qualified BRENNEN GRIFFITH December 05, 2024 6:16pm Advance Directive Response Recorded Date/ Time Living Will Yes February 11, 2023 12:56pm Do you have a Healthcare Power of Flight Engineer Performance Qualified? Yes February 11, 2023 12:56pm Living Will Yes December 05 6:16pm Do you have a Healthcare Power of Flight Engineer Performance Qualified? Yes December 05, 2024 6:16pm Name of Medical Power of Flight Engineer Performance Qualified BRENNEN GRIFFITH December 05, 2024 6:16pm Living Will No February 14, 2025 9:21pm Do you have a Healthcare Power of Flight Engineer Performance Qualified? No February 14, 2025 9:21pm Advance Directive Response Recorded Date/ Time Living Will Yes February 11, 2023 12:56pm Do you have a Healthcare Power of Flight Engineer Performance Qualified? Yes February 11, 2023 12:56pm Living Will No February 14, 2025 9:21pm Do you have a Healthcare Power of Flight Engineer Performance Qualified? No February 14, 2025 9:21pm Advance Directive Response Recorded Date/ Time Living Will Yes February 11, 2023 12:56pm Do you have a Healthcare Power of Flight Engineer Performance Qualified? Yes February 11, 2023 12:56pm Living Will No February 14, 2025 9:21pm Do you have a Healthcare Power of Flight Engineer Performance Qualified? No February 14, 2025 9:21pm Do you have a Healthcare Power of Flight Engineer Performance Qualified? Yes April 09, 2025 11:28am Healthcare Agents on File Name Relationship Healthcare Agent [facility] p Communication Brennen Griffith Spouse First Alternate [...] 25, 2025 2:25pm Chief Complaint Admit Date fallDecember 05, 2024 4 :29pm 3 month f/u [...] or prosecute any alcohol or drug abuse patient.[facility] Center[facility] the event this information is protected by the Federal Confidentiality of Alcohol and Drug Abuse Patient Records regulations: The Federal rules restrict any use of the information to criminally investigate or prosecute any alcohol or drug abuse patient.[facility] CenterIn the event this information is protected by the Federal Confidentiality of Alcohol and Drug Abuse Patient Records regulations: The Federal rules restrict any use of the information to criminally investigate or prosecute any alcohol or drug abuse patient.[facility] CenterIn the event this information is protected by the Federal Confidentiality of Alcohol and Drug Abuse Patient Records regulations: The Federal rules restrict any use of the information to criminally investigate or prosecute any alcohol or drug abuse patient.[facility] CenterIn the event this information is protected by the Federal Confidentiality of Alcohol and Drug Abuse Patient Records regulations: The Federal rules restrict any use of the information to criminally investigate or prosecute any alcohol or drug abuse patient.[facility] CenterIn the event this information is protected by the Federal Confidentiality of Alcohol and Drug Abuse Patient Records regulations: The Federal rules restrict any use of the information to criminally investigate or prosecute any alcohol or drug abuse patient.[facility] CenterIn the event this information is protected by the Federal Confidentiality of Alcohol and Drug Abuse Patient Records regulations: The Federal rules restrict any use of the information to criminally investigate or prosecute any alcohol or drug abuse patient.[facility] CenterIn the event this information is protected by the Federal Confidentiality of Alcohol and Drug Abuse Patient Records regulations: The Federal rules restrict any use of the information to criminally investigate or prosecute any alcohol or drug abuse patient.[facility] CenterIn the event this information is protected by the Federal Confidentiality of Alcohol and Drug Abuse Patient Records regulations: The Federal rules restrict any use of the information to criminally investigate or prosecute any alcohol or drug abuse patient.[facility] CenterIn the event this information is protected by the Federal Confidentiality of Alcohol and Drug Abuse Patient Records regulations: The Federal rules restrict any use of the information to criminally investigate or prosecute any alcohol or drug abuse patient.[facility] CenterIn the event this information is protected by the Federal Confidentiality of Alcohol and Drug Abuse Patient Records regulations: The Federal rules restrict any use of the information to criminally investigate or prosecute any alcohol or drug abuse patient.[facility] CenterIn the event this information is protected by the Federal Confidentiality of Alcohol and Drug Abuse Patient Records regulations: The Federal rules restrict any use of the information to criminally investigate or prosecute any alcohol or drug abuse patient.[facility] CenterIn the event this information is protected by the Federal Confidentiality of Alcohol and Drug Abuse Patient Records regulations: The Federal rules restrict any use of the information to criminally investigate or prosecute any alcohol or drug abuse patient.[facility] CenterIn the event this information is protected by the Federal Confidentiality of Alcohol and Drug Abuse Patient Records regulations: The Federal rules restrict any use of the information to criminally investigate or prosecute any alcohol or drug abuse patient.[facility] CenterIn the event this information is protected by the Federal Confidentiality of Alcohol and Drug Abuse Patient Records regulations: The Federal rules restrict any use of the information to criminally investigate or prosecute any alcohol or drug abuse patient.[facility] CenterIn the event this information is protected by the Federal Confidentiality of Alcohol and Drug Abuse Patient Records regulations: The Federal rules restrict any use of the information to criminally investigate or prosecute any alcohol or drug abuse patient.[facility] CenterIn the event this information is protected by the Federal Confidentiality of Alcohol and Drug Abuse Patient Records regulations: The Federal rules restrict any use of the information to criminally investigate or prosecute any alcohol or drug abuse patient.[facility] CenterIn the event this information is protected by the Federal Confidentiality of Alcohol and Drug Abuse Patient Records regulations: The Federal rules restrict any use of the information to criminally investigate or prosecute any alcohol or drug abuse patient.[facility] CenterIn the event this information is protected by the Federal Confidentiality of Alcohol and Drug Abuse Patient Records regulations: The Federal rules restrict any use of the information to criminally investigate or prosecute any alcohol or drug abuse patient.[facility] CenterIn the event this information is protected by the Federal Confidentiality of Alcohol and Drug Abuse Patient Records regulations: The Federal rules restrict any use of the information to criminally investigate or prosecute any alcohol or drug abuse patient.[facility] Reason for Visit (unrecogniz ed section and content) Reason Comments Parkinsonism, unspecified Parkinsonism t ype (HCC) Specialty Diagnoses / Procedures Referred By Contac t Referred To Contact Diagnoses Parkinsonism, unspecified Parkinsonism type (HCC) Procedures PROVIDER ORDERED FOLLOW UP OFFICE/OUTPATIENT [facility] 60-74 MINUTES Jaylyn Nieves MD [address] [facility] [address] [place] [address] Referral ID Status Reason Start Date Expiration Date V isits Requested Visits Authorized [id number] Closed PCP Requested Referral 11/03/2022 08/04/2023 1 1 Status Reason Specialty Diagnoses / Procedures Re ferred By Contact Referred To Contact Open Cardiology Diagnoses Pre-op testing Abnormal EKG Shortness of breath Procedures ECHO Pharmacological Stress Test Raeann Holland, ELECTRONICS TEACHER - FITNESS CLUB MANAGER [address] [facility] [address] [place] [address] Reason Comments Consult Ref by: PATRICIA MCGOWAN 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,essential (HIFU interest - saw us on the website), Tremors Dx; ET approx 1 year Specialty Diagnoses / Procedures Referred By Contac t Referred To Contact Neurology Diagnoses Tremor, essential Patricia Mcgowan MD [address] [facility] [address] [place] [address] Barb Morton MD [address] [facility] [address] [place] [address] Referral ID Status Reason Start Date Expiration Date Visits Re quested Visits Authorized [id number] Closed 09/27/2021 09/27/2022 1 1 Reason Comments Physical Therapy Neuro Specialty Diagnoses / Procedures Referred By Michel higginbotham Referred To Contact Rehabilitation Diagnoses Barb Montelongo MD [address] [facility] [address] [place] [address] [facility] [address] [place] [address] Referral ID Status Reason Start Date Expiration Date V isits Requested Visits Authorized [id number] Authorized 10/05/2021 10/05/2022 1 199 Reason Onset Date Comments Medication Refill 11/05/2021 Reason Onset Date Comments Medication Refill 11/09/2021 Reason Comments Follow Up Parkinson's Reason Comments Upcoming Appointment Pre-rooming phone c all Reason Comments Speech Evaluation Specialty Diagnoses / Procedures Referred By Michel higginbotham Referred To Contact Speech-Language Pathologist / SPEECH THERAPY Diagnoses PD Clinic Procedures [facility] Jaylyn Nieves MD [address] [address] Amaya Deleon, [facility] [employer] [place] REPA[employer]ER [address] [place] [address] Referral ID Status Reason Start Date Expiration Date V isits Requested Visits Authorized [id number] Authorized 03/29/2022 06/27/2022 99 99 Reason Comments PT Eval Patient Education Specialty Diagnoses / Procedures Referred By Michel t Referred To Contact Physical Therapy / PHYSICAL THERAPY Diagnoses PD Clinic Procedures [facility] Jaylyn Nieves MD [address] [address] [place] Medel, PT, DPT [address] [place] [address] Referral ID Status Reason Start Date Expiration Date V isits Requested Visits Authorized [id number] Authorized 03/29/2022 06/27/2022 99 99 Specialty Diagnoses / Procedures Referred By Contac t Referred To Contact Neurology / NEUROLOGICAL SHINTO Diagnoses Parkinsonism, unspecified Parkinsonism type (HCC) Procedures [facility] TO [facility] OFFICE/OUTPATIENT [facility] 60-74 MINUTES Jaylyn Nieves MD [address] [address] [facility] [address] [place] [address] Referral ID Status Reason Start Date Expiration Date V isits Requested Visits Authorized [id number] Closed PCP Requested Referral 03/17/2022 03/17/2023 1 1 Reason Onset Date Comments Refill Request 05/18/2022 Reason Comments Appointment Earlier appointment request d/t worsening symptoms Reason Comments Follow Up Referral ID Status Reason Start Date Expiration Date V isits Requested Visits Authorized [id number] Closed PCP Requested Referral 03/17/2022 06/15/2022 1 1 Reason Comments Physical Therapy Specialty Diagnoses / Procedures Referred By Contac t Referred To Contact [facility] Diagnoses Parkinsonism, unspecified Parkinsonism type (HCC) Procedures CONSULT TO PHYSICAL THERAPY PHYSICAL THERAPY EVALUATION HIGH COMPLEX 45 MINS Jaylyn Nieves MD [address] [address] [facility] [address] [address] Referral ID Status Reason Start Date Expiration Date Visits Requested Visits Authorized [id number] Authorized PCP Requested Referral Auto-Generate d Referral 08/04/2022 08/04/2023 99 99 Reason Comments New Patient Specialty Diagnoses / Procedures Referred By Contac t Referred To Contact Diagnoses Parkinsonism, unspecified Parkinsonism type (HCC) Depression, unspecified depression type Procedures CONSULT TO PSYCHIATRY OFFICE/OUTPATIENT [facility] 60-74 MINUTES Jaylyn Nieves MD [address] [address] Referral ID Status Reason Start Date Expiration Date Visits Requested Visits Authorized [id number] Pending Review PCP Requested Referral 08/04/2022 08/04/2023 [...] section and content) DATE CREATED AUTHOR 05/13/2021 [facility] DATE CREATED AUTHOR AUTHOR'S ORGANIZ ATION 05/20/2021 [facility] DATE CREATED AUTHOR AUTHOR'S ORGANIZ ATION 12/22/2021 [facility] DATE CREATED AUTHOR AUTHOR'S ORGANIZ ATION 02/18/[address] [facility] DATE CREATED AUTHOR AUTHOR'S ORGANIZ ATION 02/19/2023 [facility] DATE CREATED AUTHOR AUTHOR'S ORGANIZ ATION 04/05/2025 [facility] DATE CREATED AUTHOR AUTHOR'S ORGANIZ ATION 04/18/2025 [facility] DATE CREATED AUTHOR AUTHOR'S ORGANIZ ATION 05/10/2025 [facility] Scheduled Active and Recently Administ ered [...] disease or cirrhosis., Pre-op (day of surgery) 07 (Given - Provid er: Asya Torre RN) ceFAZolin (ANCEF) 3,000 mg in dextrose 5 % 100 mL IVPB 3,000 mg, Intravenous, SYSTEM OPERATION SUPERINTENDENT TO O.R., 1 dose, On Mon05/19/21 at 0715, Administer within 1 hour prior to incision. Recommend to repeat in 3-4 hours after initial dose if still intra-op., Pre-op (day of surgery) 07 (Due) famotidine (PEPCID) tablet 20 mg (COMPLETED) 20 mg, Oral, ONCE, On Mon05/19/21 at 0715, For 1 dose, Pre-op (day of surgery) 0709 (Given - Provid er: Asya Torre RN) [...] mg (COMPLETED) 500 mg, Oral, Once, On 04/13/25 at 2145, For 1 dose, Suspected Indication (Select all that apply): Skin and Soft Tissue Infection 2227 (Given - Provid er: Cielo Valverde RN) lidocaine-EPINEPHrine (Xylocaine W/EPI) 1 %-1:[id number] injection 10 mL (COMPLETED) 10 mL, Infiltration, Once, On 04/13/25 at 2100, For 1 dose 2227 (Given by Other - Provider: Cielo Valverde RN - Reason: Administered by Other (Comment Required) - Comment: naima) sulfamethoxazole-trimethoprim (Bactrim DS) 800-160 MG per tablet 1 tablet (COMPLETED) 1 tablet, Oral, Once, On 04/13/25 at 2145, For 1 dose, Suspected Indication (Select all that apply): Skin and Soft Tissue Infection 2227 (Given - Provid er: Cielo Valverde RN) Care Teams (unrecognized sec tion and content) Quality Assurance Tech Relationship Specialty Start Date End Date Patricia Mcgowan MD [address] [place], [place] [id number] PCP - General Family Medicine 10/28/21 Quality Assurance Tech Relationship Specialty Start Date End Date Patricia Mcgowan MD [address] [place], [place] [id number] PCP - General Family Medicine 10/28/21 Quality Assurance Tech Relationship Specialty Start Date End Date Patricia Mcgowan MD [address] [place] [address] PCP - General Family Medicine 10/28/21 Quality Assurance Tech Relationship Specialty Start Date End Date Patricia Mcgowan MD [address] [place] [address] PCP - General Family Medicine 10/28/21 Quality Assurance Tech Relationship Specialty Start Date End Date Patricia Mcgowan MD [address] [place] [address] PCP - General Family Medicine 10/28/21 Quality Assurance Tech Relationship Specialty Start Date End Date Patricia Mcgowan MD [address] [place] [address] PCP - General Family Medicine 10/28/21 Quality Assurance Tech Relationship Specialty Start Date End Date Patricia Mcgowan MD [address] [place] [address] PCP - General Family Medicine 10/28/21 Quality Assurance Tech Relationship Specialty Start Date End Date Ron Cooley [address] [place] [address] PCP - General Family Practice 03/17/22 Quality Assurance Tech Relationship Specialty Start Date End Date Ron Cooley [address] [place] [address] PCP - General Family Practice 03/17/22 Quality Assurance Tech Relationship Specialty Start Date End Date Ron Cooley [address] [place] [address] PCP - General Family Practice 03/17/22 Quality Assurance Tech Relationship Specialty Start Date End Date Ron Cooley [address] [place] [address] PCP - General Family Practice 03/17/22 Quality Assurance Tech Relationship Specialty Start Date End Date Ron Cooley [address] [facility] [address] [place] [address] PCP - General Family Practice 03/17/22 Quality Assurance Tech Relationship Specialty Start Date End Date Ron Cooley [address] [facility] [address] [place] [address] PCP - General Family Practice 03/17/22 Quality Assurance Tech Relationship Specialty Start Date End Date Ron Cooley [address] [facility] [address] [place] [address] PCP - General Family Practice 03/17/22 Quality Assurance Tech Relationship Specialty Start Date End Date Ron Cooley [address] [facility] [address] [place] [address] PCP - General Family Practice 03/17/22 Quality Assurance Tech Relationship Specialty Start Date End Date Ron Cooley [address] [facility] [address] [place] [address] PCP - General Family Practice 03/17/22 Quality Assurance Tech Relationship Specialty Start Date End Date Ron Cooley [address] [facility] [address] [place] [address] PCP - General Family Medicine 03/17/22 Quality Assurance Tech Relationship Specialty Start Date End Date Ron Cooley [address] [facility] [address] [place] [address] PCP - General Family Medicine 03/17/22 Quality Assurance Tech Relationship Specialty Start Date End Date Ron Cooley [address] [facility] [address] [place] [address] PCP - General Family Medicine 03/17/22 Erika May, ELECTRONICS TEACHER.FITNESS CLUB MANAGER [address] [place] [address] Specialty Transmission Calibration Engineer Neurology 09/07/22 Quality Assurance Tech Relationship Specialty Start Date End Date Ron Cooley [address] [facility] [address] [place] [address] PCP - General Family Medicine 03/17/22 Eriak May, ELECTRONICS TEACHER.FITNESS CLUB MANAGER [address] [place] [address] Specialty Transmission Calibration Engineer Neurology 09/07/22 Quality Assurance Tech Relationship Specialty Start Date End Date Ron Cooley [address] [facility] [address] [place] [address] PCP - General Family Medicine 03/17/22 Erika May, ELECTRONICS TEACHER.FITNESS CLUB MANAGER [address] [place] [address] Specialty Transmission Calibration Engineer Neurology 09/07/22 Quality Assurance Tech Relationship Specialty Start Date End Date Ron Cooley [address] [facility] [address] [place] [address] PCP - General Family Medicine 03/17/22 Erika May, ELECTRONICS TEACHER.FITNESS CLUB MANAGER [address] [place] [address] Specialty Transmission Calibration Engineer Neurology 09/07/22 Tatiana Rodas, ELECTRONICS TEACHER.FITNESS CLUB MANAGER [address] [place] [address] Specialty Transmission Calibration Engineer Neurology 12/05/22 Quality Assurance Tech Relationship Specialty Start Date End Date Ron Cooley [address] [facility] [address] [place] [address] PCP - General Family Medicine 03/17/22 Erika May, ELECTRONICS TEACHER.FITNESS CLUB MANAGER [address] [place] [address] Specialty Transmission Calibration Engineer Neurology 09/07/22 Tatiana Rodas, ELECTRONICS TEACHER.FITNESS CLUB MANAGER [address] [place] [address] Specialty Transmission Calibration Engineer Neurology 12/05/22 Quality Assurance Tech Relationship Specialty Start Date End Date Ron Cooley [address] [facility] [address] [place] [address] PCP - General Family Medicine 03/17/22 Erika May, ELECTRONICS TEACHER.FITNESS CLUB MANAGER [address] [place] [address] Specialty Transmission Calibration Engineer Neurology 09/07/22 Tatiana Rodas, ELECTRONICS TEACHER.FITNESS CLUB MANAGER [address] [place] [address] Specialty Transmission Calibration Engineer Neurology 12/05/22 Team Status: Active Member Role [...] Dr. Natasha Gregory MD Attending Provider Active Quality Assurance Tech Relationship Specialty Start Date End Date Ron Cooley [address] [facility] [address] [place] [address] PCP - General Family Medicine 03/17/22 Erika May, ELECTRONICS TEACHER.FITNESS CLUB MANAGER [address] [place] [address] Specialty Transmission Calibration Engineer Neurology 09/07/22 Tatiana Rodas, ELECTRONICS TEACHER.FITNESS CLUB MANAGER [address] [place] [address] Specialty Transmission Calibration Engineer Neurology 12/05/22 Team Status: Inactive Member Role Status Dates Dr. Ron Cooley MD Primary Care Provider Active Dr. Osman Farooq MD Emergency Provider Active Quality Assurance Tech Relationship Specialty Start Date End Date Ron Cooley [address] [place] [address] PCP - General Family Medicine 03/17/22 Erika May, ELECTRONICS TEACHER.FITNESS CLUB MANAGER [address] [place] [address] Specialty Transmission Calibration Engineer Neurology 09/07/22 Tatiana Rodas, ELECTRONICS TEACHER.FITNESS CLUB MANAGER [address] [place], [place] [id number] Specialty Transmission Calibration Engineer Neurology 12/05/22 Team Status: Inactive Member Role [...] Provider, Referr ing Provider Active Christel Bae LOAN ANALYST, LOAN ANALYST-C Attending Provider Active Team Status: Inactive Member [...] Patricia Mcgowan MD Attending Provider, Referring P rovider Active Team Status: Inactive Member Role Status [...] MD Attending Provider, Referring Provider Active Dr. Vcik Santo MD Other Provider Active Team Status: [...] April 09, 2025 End: April 09, 2025 Quality Assurance Tech Relationship Specialty Start Date End Date Ron Cooley MD [address] [place] [address] PCP - General Family Medicine 04/13/25 Goals [...] BE BASED ON THE PRIMARY CLINICAL RECORDS. [employer] provides no warranty or guarantee of the accuracy or completeness of information in this document.
[2025-05-11 18:15] LABS: Bedside Glucose 97 mg/dL (74-106)
[2025-05-11 19:06] VITALS: BP 138/69; PULSE 72; RESP 16; TEMP 36.9; O2SAT 97
== END 2025-05-11 19:07 | disposition home or self-care (01) ==
PROVIDERS: Emergency Provider Emergency Medicine; PCP Family Medicine; Visit Provider Emergency Medicine
DX: E11.649 Type 2 diabetes mellitus with hypoglycemia without coma (principal); F02.80 Dementia in other diseases classified elsewhere, unspecified severity, without behavioral disturbance, psychotic disturbance, mood disturbance, and anxiety; I48.0 Paroxysmal atrial fibrillation; Z79.4 Long term (current) use of insulin; Z87.891 Personal history of nicotine dependence; E78.5 Hyperlipidemia, unspecified; I10 Essential (primary) hypertension; Z79.84 Long term (current) use of oral hypoglycemic drugs; Z96.652 Presence of left artificial knee joint; Z85.828 Personal history of other malignant neoplasm of skin; R41.82 Altered mental status, unspecified
CPT/HCPCS: 82962; 99284

== ENCOUNTER 2025-05-14 12:30 | Outpatient (RCR) | payer MEDICARE, OTHER, SELFPAY ==
--- NOTE | 2025-02-25 15:18 | ST ---
[facility] Speech Pathology [address] [place] [address] Modified Barium Swallow Study MR#: [id number] Acct: [id number] Name: KEVIN GRIFFITH Rep #: [id number] : 1945 79 From: Chayito Barber Modified Barium Swallow Patient Information Study Date: 09/20/24 Study Time: 13:00 Direct Billable Minutes: 120 Total Minutes procedure & reportin Diagnosis: G20 - Parkinson's disease Referring Physician: Vick Rosenberg Reason for Referral: Objectively assess swallow function, assess risk for aspiration, and determine recommendations for least restrictive diet textures and compensatory strategies to improve safety of swallow.? Medical History: Pt. is here for MBSS as referred by neurologist Dr. Rosenberg to evaluate dysphagia. He is diagnosed with moderate Parkinson's disease. According to pt., he has been experiencing frequent episodes of coughing and choking with solids and liquids. He is unable to provide specifics regarding whether certain foods or drinks, or using a cup or straw, contribute to his difficulties. Pt. denies any history of pneumonia. Dentition: WNL Mental Status: Impaired (Parkinson's disease dementia) Respiratory Status: Oxygenating on Room Air Penetration-Aspiration Scale Penetration-Aspiration Scale: OBJECTIVE ASSESSMENT OF SWALLOW FUNCTION (QUANTITATIVE ? PER TRIAL): PENETRATION / ASPIRATION SCALE (OBANDO): 1 = does not enter airway 2 = enters airway/above vocal folds/ejected 3 = enters airway/above vocal folds/not ejected 4 = enters airway/contacts vocal folds/ejected 5 = enters airway/contacts vocal folds/not ejected 6 = enters airway/below vocal folds/ejected 7 = enters airway/below vocal folds/not ejected despite effort 8 = enters airway/below vocal folds/no effort VIDEOFLOROSCOPIC SCALE SCORE (OBANDO): Grade I = aspiration of material that has penetrated into the laryngeal vestibule, intact cough reflex Grade II = aspiration < 10 % of the bolus, intact cough reflex Grade III = aspiration of < 10 % of the bolus, reduced cough reflex or aspiration of > 10 % of the bolus, intact cough reflex Grade IV = aspiration of > 10 % of the bolus, reduced cough reflex Penetration-Aspiration Scale Score Thin Liquid via teaspoon: Result: 1= does not enter airway Thin Liquid via small single sip: cup: Result: 1= does not enter airway Thin Liquid via large single sip: cup: Result: 2= enter airway/above vocal folds/ejected Thin Liquid via small single sip: cup Effortful swallow: Result: 1= does not enter airway [place] Thick Liquid via small single sip: cup: Result: 1= does not enter airway Honey Thick Liquid via small single sip: cup: Result: 1= does not enter airway Pudding via teaspoon: Result: 1= does not enter airway Cookie: Result: 1= does not enter airway Thin Liquid via single sip: straw: Result: 2= enter airway/above vocal folds/ejected Thin Liquid via sequential sips:straw: Result: 5= enters airways/contacts vocal folds/not ejected Thin Liquid via small single sip: cup Effortful swallow Trial 2: Result: 1= does not enter airway Oral Phase Labial Seal: No Labial Escape Tongue Control During Bolus Hold: Posterior escape of greater than half of bolus Bolus Preparation/Mastication: Slow prolonged chewing/mashing with complete recollection Bolus Transport/Lingual Motion: Delayed initiation of tongue motion Oral Residue: Residue collection on oral structures Pharyngeal Phase Initiation of Pharyngeal Swallow: Bolus head in pyriforms Soft Palate Elevation: No bolus between soft palate and pharyngeal wall Laryngeal Elevation: Partial superior movement thyroid cart/partial apprx aryt-epig petiole Anterior Hyoid Excursion: Complete anterior movement Epiglottic Movement: Complete inversion Laryngeal Vestibule Closure at Height of Swallow: Incomplete; narrow column of air/contrast in laryngeal vestibule Pharyngeal Stripping Wave: Present - diminished Pharyngoesophageal Segment Opening: Parital distension and partial duration; parital obstruction of flow Tongue Base Retraction: Narrow column of contrast between tongue base & post. pharyngeal wall Pharyngeal Residue: Collection of residue within or on pharyngeal structures Esophageal Phase Esophageal Clearance: Esophageal retention Treatment Strategies Effects of treatment strategies attemped:: small sips = effective effortful swallow = effective Diagnosis/Impression Diagnosis: mild oropharyngeal dysphagia R13.12 Impression: The pt. presents with mild oropharyngeal dysphagia likely secondary to Parkinson's disease. Pt. demonstrated poor bolus control, with over half of the bolus in the vallecula and pyriform sinuses prior to swallow onset. Improvement in bolus control was noted with smaller sips, especially when taken with a teaspoon or when prompted by the NEWS TECHNICAL DIRECTOR to take smaller sips. Poor bolus control and delayed pharyngeal onset increase pt.'s risk for pre-prandial aspiration. Pt. also exhibited piecemeal deglutition for both liquids and solids, with laryngeal penetration observed during the second swallow of thin liquid, both from a cup and a straw. Laryngeal penetration to vocal cords that was not fully ejected resulted in an immediate, strong reflexive cough following sequential sips of thin liquids via straw. While no aspiration was observed, pt. remains at risk for aspiration due to decreased airway protection attributed to reduced laryngeal elevation and closure. Use of an effortful swallow improved airway closure. Pt. successfully demonstrated the use of small sips with an effortful swallow throughout MBSS with no laryngeal penetration or aspiration observed. Oral residue was observed spilling into the vallecula and pyriform sinuses after the swallow, indicating decreased lingual strength and incomplete oral clearance. Pt. required 2-4 swallows per trial to fully clear oral and pharyngeal residues, with some retention noted in esophagus following pudding trial. Recommendations Diet: Regular Textures and Thin Liquids (w/ effortful swallow) Compensatory Strategies: Small Bites, Small Sips, No Straws, Slow Rate, Multiple Swallows, Alternate bites/solids and sips/liquids, Sitting upright, Remain sitting upright for 30 minutes after PO intake and Assist with verbal cues to use recommended strategies Supervision: Assist as needed Recommend Repeat Modified Barium Swallow: TBD Need for Skilled Speech Therapy Services: Yes Comment: Pt. would benefit from continued speech therapy services to address diet texture management, training and implementation of recommended compensatory strategies, as well as oropharyngeal strengthening exercises to improve swallow function and decrease risk. NEWS TECHNICAL DIRECTOR communicated with Dr. Rosenberg's office regarding the outpatient speech therapy referral, and pt. is in agreement. Education Completed: 1. Described result of evaluation. and 2. Pt understands evaluation & agrees with goals and treatment plan. Status Active ST Patient: Active Contact Information [facility] Speech Therapy:: Chayito Barber M.A. [facility]-NEWS TECHNICAL DIRECTOR Speech-Language Pathologist [facility] [address] [place] [address] [email or web address] [phone] 09/20/24 1981 <Electronically signed by Chayito Barber> Date/Time Chayito Barber
--- NOTE | 2025-02-25 15:18 | ST ---
[facility] Speech Pathology [address] [place] [address] Modified Barium Swallow Study MR#: [id number] Acct: [id number] Name: KEVIN GRIFFITH Rep #: [id number] : 1945 79 From: Chayito Barber Modified Barium Swallow Patient Information Study Date: 09/20/24 Study Time: 13:00 Direct Billable Minutes: 120 Total Minutes procedure & reportin Diagnosis: G20 - Parkinson's disease Referring Physician: Vick Rosenberg Reason for Referral: Objectively assess swallow function, assess risk for aspiration, and determine recommendations for least restrictive diet textures and compensatory strategies to improve safety of swallow.? Medical History: Pt. is here for MBSS as referred by neurologist Dr. Rosenberg to evaluate dysphagia. He is diagnosed with moderate Parkinson's disease. According to pt., he has been experiencing frequent episodes of coughing and choking with solids and liquids. He is unable to provide specifics regarding whether certain foods or drinks, or using a cup or straw, contribute to his difficulties. Pt. denies any history of pneumonia. Dentition: WNL Mental Status: Impaired (Parkinson's disease dementia) Respiratory Status: Oxygenating on Room Air Penetration-Aspiration Scale Penetration-Aspiration Scale: OBJECTIVE ASSESSMENT OF SWALLOW FUNCTION (QUANTITATIVE ? PER TRIAL): PENETRATION / ASPIRATION SCALE (OBANDO): 1 = does not enter airway 2 = enters airway/above vocal folds/ejected 3 = enters airway/above vocal folds/not ejected 4 = enters airway/contacts vocal folds/ejected 5 = enters airway/contacts vocal folds/not ejected 6 = enters airway/below vocal folds/ejected 7 = enters airway/below vocal folds/not ejected despite effort 8 = enters airway/below vocal folds/no effort VIDEOFLOROSCOPIC SCALE SCORE (OBANDO): Grade I = aspiration of material that has penetrated into the laryngeal vestibule, intact cough reflex Grade II = aspiration < 10 % of the bolus, intact cough reflex Grade III = aspiration of < 10 % of the bolus, reduced cough reflex or aspiration of > 10 % of the bolus, intact cough reflex Grade IV = aspiration of > 10 % of the bolus, reduced cough reflex Penetration-Aspiration Scale Score Thin Liquid via teaspoon: Result: 1= does not enter airway Thin Liquid via small single sip: cup: Result: 1= does not enter airway Thin Liquid via large single sip: cup: Result: 2= enter airway/above vocal folds/ejected Thin Liquid via small single sip: cup Effortful swallow: Result: 1= does not enter airway [place] Thick Liquid via small single sip: cup: Result: 1= does not enter airway [place] Thick Liquid via small single sip: cup: Result: 1= does not enter airway Pudding via teaspoon: Result: 1= does not enter airway Cookie: Result: 1= does not enter airway Thin Liquid via single sip: straw: Result: 2= enter airway/above vocal folds/ejected Thin Liquid via sequential sips:straw: Result: 5= enters airways/contacts vocal folds/not ejected Thin Liquid via small single sip: cup Effortful swallow Trial 2: Result: 1= does not enter airway Oral Phase Labial Seal: No Labial Escape Tongue Control During Bolus Hold: Posterior escape of greater than half of bolus Bolus Preparation/Mastication: Slow prolonged chewing/mashing with complete recollection Bolus Transport/Lingual Motion: Delayed initiation of tongue motion Oral Residue: Residue collection on oral structures Pharyngeal Phase Initiation of Pharyngeal Swallow: Bolus head in pyriforms Soft Palate Elevation: No bolus between soft palate and pharyngeal wall Laryngeal Elevation: Partial superior movement thyroid cart/partial apprx aryt-epig petiole Anterior Hyoid Excursion: Complete anterior movement Epiglottic Movement: Complete inversion Laryngeal Vestibule Closure at Height of Swallow: Incomplete; narrow column of air/contrast in laryngeal vestibule Pharyngeal Stripping Wave: Present - diminished Pharyngoesophageal Segment Opening: Parital distension and partial duration; parital obstruction of flow Tongue Base Retraction: Narrow column of contrast between tongue base & post. pharyngeal wall Pharyngeal Residue: Collection of residue within or on pharyngeal structures Esophageal Phase Esophageal Clearance: Esophageal retention Treatment Strategies Effects of treatment strategies attemped:: small sips = effective effortful swallow = effective Diagnosis/Impression Diagnosis: mild oropharyngeal dysphagia R13.12 Impression: The pt. presents with mild oropharyngeal dysphagia likely secondary to Parkinson's disease. Pt. demonstrated poor bolus control, with over half of the bolus in the vallecula and pyriform sinuses prior to swallow onset. Improvement in bolus control was noted with smaller sips, especially when taken with a teaspoon or when prompted by the EYELET OPERATOR to take smaller sips. Poor bolus control and delayed pharyngeal onset increase pt.'s risk for pre-prandial aspiration. Pt. also exhibited piecemeal deglutition for both liquids and solids, with laryngeal penetration observed during the second swallow of thin liquid, both from a cup and a straw. Laryngeal penetration to vocal cords that was not fully ejected resulted in an immediate, strong reflexive cough following sequential sips of thin liquids via straw. While no aspiration was observed, pt. remains at risk for aspiration due to decreased airway protection attributed to reduced laryngeal elevation and closure. Use of an effortful swallow improved airway closure. Pt. successfully demonstrated the use of small sips with an effortful swallow throughout MBSS with no laryngeal penetration or aspiration observed. Oral residue was observed spilling into the vallecula and pyriform sinuses after the swallow, indicating decreased lingual strength and incomplete oral clearance. Pt. required 2-4 swallows per trial to fully clear oral and pharyngeal residues, with some retention noted in esophagus following pudding trial. Recommendations Diet: Regular Textures and Thin Liquids (w/ effortful swallow) Compensatory Strategies: Small Bites, Small Sips, No Straws, Slow Rate, Multiple Swallows, Alternate bites/solids and sips/liquids, Sitting upright, Remain sitting upright for 30 minutes after PO intake and Assist with verbal cues to use recommended strategies Supervision: Assist as needed Recommend Repeat Modified Barium Swallow: TBD Need for Skilled Speech Therapy Services: Yes Comment: Pt. would benefit from continued speech therapy services to address diet texture management, training and implementation of recommended compensatory strategies, as well as oropharyngeal strengthening exercises to improve swallow function and decrease risk. EYELET OPERATOR communicated with Dr. Rosenberg's office regarding the outpatient speech therapy referral, and pt. is in agreement. Education Completed: 1. Described result of evaluation. and 2. Pt understands evaluation & agrees with goals and treatment plan. Status Active ST Patient: Active Contact Information [facility] Speech Therapy:: Chayito Barber M.A. [facility]-EYELET OPERATOR Speech-Language Pathologist [facility] [address] [place] [address] [email or web address] [phone] 09/20/24 7782 <Electronically signed by Chayito Barber> Date/Time Chayito Barber
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
--- NOTE | 2025-05-09 13:09 | SP.MBSS_ITS ---
Modified Barium Swallow Patient Information Study Date: 05/09/25 Study Time: 13:05 Direct Billable Minutes: 120 Total Minutes procedure & reportin Diagnosis: Dysphagia R13.10 Referring Physician: Vick Rosenberg Reason for Referral: The patient presents for repeat MBSS recommended by his OP DISPATCHER SERVICE CHIEF. Patient and report coughing w/ food and drink at every meal. No choking or Heimlich required in the past, but he has frequent coughing episodes and his is fearful of choking w/ extent of coughing. She reports he has most difficulty swallowing dry meats. He reports most difficulty w/ liquids. He has had swallowing difficulty for ~3.5 years, but it appears to be getting much worse per report. 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 BSE 02/26/2025 revealed dysphagia and recommended the following diet textures and safe swallowing strategies ? Regular (Level 7), Liquids: Thin (Level 0), Safey Precautions/Swallowing Recommendations (Check all that Apply): Upright Position at Least 30 Minutes After Meals, Small Sips & Bites when Eating, No Straw, Multiple Swallows, Alternate Liquids & Solids and Other (Specify Below), Other: Effortful swallows with liquids.? BSE also recommended a repeat MBSS for further evaluation of aspiration risk and to determine appropriate dysphagia interventions. 09/20/24 MBSS revealed mild oropharyngeal dysphagia and recommended the following diet textures and safe swallowing strategies: ?Regular Textures and Thin Liquids (w/ effortful swallow)?Compensatory Strategies: Small Bites, Small Sips, No Straws, Slow Rate, Multiple Swallows, Alternate bites/solids and sips/liquids, Sitting upright, Remain sitting upright for 30 minutes after PO intake and Assist with verbal cues to use recommended strategies.? Current Diet Ordered: Regular textures / Thin liquids Dentition: Natural Teeth and Missing Teeth Mental Status: Impaired (Dementia) Respiratory Status: Oxygenating on Room Air Penetration-Aspiration Scale Penetration-Aspiration Scale: OBJECTIVE ASSESSMENT OF SWALLOW FUNCTION (QUANTITATIVE ? PER TRIAL): PENETRATION / ASPIRATION SCALE (OBANDO): 1 = does not enter airway 2 = enters airway/above vocal folds/ejected 3 = enters airway/above vocal folds/not ejected 4 = enters airway/contacts vocal folds/ejected 5 = enters airway/contacts vocal folds/not ejected 6 = enters airway/below vocal folds/ejected 7 = enters airway/below vocal folds/not ejected despite effort 8 = enters airway/below vocal folds/no effort VIDEOFLOROSCOPIC SCALE SCORE (OBANDO): Grade I = aspiration of material that has penetrated into the laryngeal vestibule, intact cough reflex Grade II = aspiration < 10 % of the bolus, intact cough reflex Grade III = aspiration of < 10 % of the bolus, reduced cough reflex or aspiration of > 10 % of the bolus, intact cough reflex Grade IV = aspiration of > 10 % of the bolus, reduced cough reflex Penetration-Aspiration Scale Score Thin Liquid via teaspoon: Result: 1= does not enter airway Thin Liquid via teaspoon Trial 2: Result: 1= does not enter airway Thin Liquid via small single sip: cup: Result: 2= enter airway/above vocal folds/ejected [place] Thick Liquid via large single sip: cup: Result: 7= enters airways/below vocal folds/not ejected despite effort Pudding via teaspoon: Result: 1= does not enter airway Comment: Esophageal screen - Retention of pudding in the middle esophagus. Thin Liquid via single sip: straw: Result: 7= enters airways/below vocal folds/not ejected despite effort Comment: Esophageal screen - Complete clearance. 1/2 Cookie coated in barium pudding: Result: 1= does not enter airway Comment: Esophageal screen - Retention of cookie in the middle and lower esophagus. Thin Liquid via sequential sips: cup: Result: 7= enters airways/below vocal folds/not ejected despite effort Comment: Esophageal screen - Some clearance (still moderate retention) w/ liquid wash. Thin Liquid via large single sip: cup Chin tuck: Result: 2= enter airway/above vocal folds/ejected Thin Liquid via small single sip: cup Chin tuck: Result: 2= enter airway/above vocal folds/ejected Thin Liquid via small single sip: cup Chin tuck Trial 2: Result: 2= enter airway/above vocal folds/ejected Thin Liquid via large single sip: cup Chin tuck Trial 2: Result: 2= enter airway/above vocal folds/ejected Thin Liquid via large single sip: cup Effortful swallow: Result: 1= does not enter airway Thin Liquid via small single sip: cup Effortful swallow: Result: 1= does not enter airway Oral Phase Labial Seal: No Labial Escape Tongue Control During Bolus Hold: Posterior escape of greater than half of bolus Bolus Preparation/Mastication: Slow prolonged chewing/mashing with complete recollection Bolus Transport/Lingual Motion: Repetitive/disorganized tongue motion Oral Residue: Majority of bolus remaining Pharyngeal Phase Initiation of Pharyngeal Swallow: Bolus head in pyriforms Soft Palate Elevation: Trace column of contrast/air between soft palate and pharyngeal wall Laryngeal Elevation: Partial superior movement thyroid cart/partial apprx aryt- epig petiole Anterior Hyoid Excursion: Partial anterior movement Epiglottic Movement: Complete inversion Laryngeal Vestibule Closure at Height of Swallow: Incomplete; narrow column of air/contrast in laryngeal vestibule Pharyngeal Stripping Wave: Present - diminished Pharyngoesophageal Segment Opening: Parital distension and partial duration; parital obstruction of flow (trace retention in the UES) Tongue Base Retraction: Narrow column of contrast between tongue base & post. pharyngeal wall Pharyngeal Residue: Collection of residue within or on pharyngeal structures Esophageal Phase Esophageal Clearance: Esophageal retention Diagnosis/Impression Diagnosis: Moderate oropharyngeal dysphagia R13.12; Esophageal dysphagia R13.14 Impression: The oral phase is primarily marked by... -Decreased bolus control with >1/2 of the bolus spilling to the pharynx prior to swallow onset. -Disorganized, slowed tongue motion for A-P transport. -Slowed, but complete mastication. -Moderate oral residues, which at time spilled to the pharynx after the swallow. The pharyngeal phase is primarily marked by... -Delayed swallow onset. -Decreased pharyngeal motility w/ -Decreased airway closure due to decreased laryngeal elevation and anterior hyoid excursion. -Aspiration of thin liquids via cup and straw. Aspiration of mildly/nectar thick liquids via cup. Delayed, reflexive cough w/ all aspiration events. Aspiration occurred during the second swallow of these liquid trials due to pharyngeal residues in the pyriform sinuses spilling to the trachea during the second swallow. -Some sip sizes taken during MBSS were large/sequential despite DISPATCHER SERVICE CHIEF cues for small sip. Decreased bolus size is recommended to decrease aspiration risk. DISPATCHER SERVICE CHIEF provided information re: bolus control cup. The esophageal phase is primarily marked by... -Retention of pudding in the middle esophagus, which appeared to fully clear after liquid wash. -Retention of cookie in the middle and lower esophagus, which did not appear to somewhat clear (still moderate retention) w/ liquid wash Recommendations Diet: Easy to Chew Textures (Moisten Dry Textures) and Thin Liquids Comment: STOP meal if increased s/s of reflux, sensation of retention, or regurgitation despite use of strategies listed below and resume meal at a later time. Compensatory Strategies: Small Bites, Small Sips (Hard swallows, 10cc bolus control cup), Slow Rate, Alternate bites/solids and sips/liquids, Sitting upright and Remain sitting upright for 30 minutes after PO intake Supervision: Assist as needed ( informed the DISPATCHER SERVICE CHIEF that supervision at each meal is not possible, DISPATCHER SERVICE CHIEF recommends supervision as much as able to cue use of safe swallow strategies) Recommend Repeat Modified Barium Swallow: TBD Need for Skilled Speech Therapy Services: Yes Comment: -Train the patient in use of strategies to decrease risk for aspiration and reflux aspiration. Pt may benefit from visual reminder cards due to inability for direct supervision at all meals. -Ongoing assessment of diet tolerance of recommended textures/strategies. Chin tuck was also an effective strategy if s/s of aspiration persist w/ use of effortful swallow. -Train the patient in oral motor and oropharyngeal exercise program (lingual coordination and resistance exercises, Nile, Effortful, CTAR) Recommended Referrals: GI Consult (Pt is NOT recommended for esophagram due to aspiration risk.) Education Completed: 1. Described result of evaluation., 4. Family/caregivers understand evaluation & agree w/ goals & tx plan. and 7. Pt requires further education on strategies & risks. Comment: DISPATCHER SERVICE CHIEF provided extensive education w/ pt and in results and recommendations of MBSS via review of some images, verbal discussion, and handouts (Easy to Chew diet texture information/testing, MBSS Recommendations, and [place] Bolus Control Cup information). Education well received. Pt would benefit from continued training in safe swallowing precautions. Status Active ST Patient: Active Contact Information [facility] Speech Therapy:: Heather Titus M.A. [facility]-DISPATCHER SERVICE CHIEF? Speech-Language Pathologist?? [facility] [address] [place] [address]? [email or web address]?? [phone]
--- NOTE | 2025-05-09 13:09 | SP.MBSS_ITS ---
Modified Barium Swallow Patient Information Study Date: 05/09/25 Study Time: 13:05 Direct Billable Minutes: 120 Total Minutes procedure & reportin Diagnosis: Dysphagia R13.10 Referring Physician: Vick Rosenberg Reason for Referral: The patient presents for repeat MBSS recommended by his OP FRONT OFFICE ATTENDANT. Patient and report coughing w/ food and drink at every meal. No choking or Heimlich required in the past, but he has frequent coughing episodes and his is fearful of choking w/ extent of coughing. She reports he has most difficulty swallowing dry meats. He reports most difficulty w/ liquids. He has had swallowing difficulty for ~3.5 years, but it appears to be getting much worse per report. 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 BSE 02/26/2025 revealed dysphagia and recommended the following diet textures and safe swallowing strategies ? Regular (Level 7), Liquids: Thin (Level 0), Safey Precautions/Swallowing Recommendations (Check all that Apply): Upright Position at Least 30 Minutes After Meals, Small Sips & Bites when Eating, No Straw, Multiple Swallows, Alternate Liquids & Solids and Other (Specify Below), Other: Effortful swallows with liquids.? BSE also recommended a repeat MBSS for further evaluation of aspiration risk and to determine appropriate dysphagia interventions. 09/20/24 MBSS revealed mild oropharyngeal dysphagia and recommended the following diet textures and safe swallowing strategies: ?Regular Textures and Thin Liquids (w/ effortful swallow)?Compensatory Strategies: Small Bites, Small Sips, No Straws, Slow Rate, Multiple Swallows, Alternate bites/solids and sips/liquids, Sitting upright, Remain sitting upright for 30 minutes after PO intake and Assist with verbal cues to use recommended strategies.? Current Diet Ordered: Regular textures / Thin liquids Dentition: Natural Teeth and Missing Teeth Mental Status: Impaired (Dementia) Respiratory Status: Oxygenating on Room Air Penetration-Aspiration Scale Penetration-Aspiration Scale: OBJECTIVE ASSESSMENT OF SWALLOW FUNCTION (QUANTITATIVE ? PER TRIAL): PENETRATION / ASPIRATION SCALE (OBANDO): 1 = does not enter airway 2 = enters airway/above vocal folds/ejected 3 = enters airway/above vocal folds/not ejected 4 = enters airway/contacts vocal folds/ejected 5 = enters airway/contacts vocal folds/not ejected 6 = enters airway/below vocal folds/ejected 7 = enters airway/below vocal folds/not ejected despite effort 8 = enters airway/below vocal folds/no effort VIDEOFLOROSCOPIC SCALE SCORE (OBANDO): Grade I = aspiration of material that has penetrated into the laryngeal vestibule, intact cough reflex Grade II = aspiration < 10 % of the bolus, intact cough reflex Grade III = aspiration of < 10 % of the bolus, reduced cough reflex or aspiration of > 10 % of the bolus, intact cough reflex Grade IV = aspiration of > 10 % of the bolus, reduced cough reflex Penetration-Aspiration Scale Score Thin Liquid via teaspoon: Result: 1= does not enter airway Thin Liquid via teaspoon Trial 2: Result: 1= does not enter airway Thin Liquid via small single sip: cup: Result: 2= enter airway/above vocal folds/ejected Muse Thick Liquid via large single sip: cup: Result: 7= enters airways/below vocal folds/not ejected despite effort Pudding via teaspoon: Result: 1= does not enter airway Comment: Esophageal screen - Retention of pudding in the middle esophagus. Thin Liquid via single sip: straw: Result: 7= enters airways/below vocal folds/not ejected despite effort Comment: Esophageal screen - Complete clearance. 1/2 Cookie coated in barium pudding: Result: 1= does not enter airway Comment: Esophageal screen - Retention of cookie in the middle and lower esophagus. Thin Liquid via sequential sips: cup: Result: 7= enters airways/below vocal folds/not ejected despite effort Comment: Esophageal screen - Some clearance (still moderate retention) w/ liquid wash. Thin Liquid via large single sip: cup Chin tuck: Result: 2= enter airway/above vocal folds/ejected Thin Liquid via small single sip: cup Chin tuck: Result: 2= enter airway/above vocal folds/ejected Thin Liquid via small single sip: cup Chin tuck Trial 2: Result: 2= enter airway/above vocal folds/ejected Thin Liquid via large single sip: cup Chin tuck Trial 2: Result: 2= enter airway/above vocal folds/ejected Thin Liquid via large single sip: cup Effortful swallow: Result: 1= does not enter airway Thin Liquid via small single sip: cup Effortful swallow: Result: 1= does not enter airway Oral Phase Labial Seal: No Labial Escape Tongue Control During Bolus Hold: Posterior escape of greater than half of bolus Bolus Preparation/Mastication: Slow prolonged chewing/mashing with complete recollection Bolus Transport/Lingual Motion: Repetitive/disorganized tongue motion Oral Residue: Majority of bolus remaining Pharyngeal Phase Initiation of Pharyngeal Swallow: Bolus head in pyriforms Soft Palate Elevation: Trace column of contrast/air between soft palate and pharyngeal wall Laryngeal Elevation: Partial superior movement thyroid cart/partial apprx aryt- epig petiole Anterior Hyoid Excursion: Partial anterior movement Epiglottic Movement: Complete inversion Laryngeal Vestibule Closure at Height of Swallow: Incomplete; narrow column of air/contrast in laryngeal vestibule Pharyngeal Stripping Wave: Present - diminished Pharyngoesophageal Segment Opening: Parital distension and partial duration; parital obstruction of flow (trace retention in the UES) Tongue Base Retraction: Narrow column of contrast between tongue base & post. pharyngeal wall Pharyngeal Residue: Collection of residue within or on pharyngeal structures Esophageal Phase Esophageal Clearance: Esophageal retention Diagnosis/Impression Diagnosis: Moderate oropharyngeal dysphagia R13.12; Esophageal dysphagia R13.14 Impression: The oral phase is primarily marked by... -Decreased bolus control with >1/2 of the bolus spilling to the pharynx prior to swallow onset. -Disorganized, slowed tongue motion for A-P transport. -Slowed, but complete mastication. -Moderate oral residues, which at time spilled to the pharynx after the swallow. The pharyngeal phase is primarily marked by... -Delayed swallow onset. -Decreased pharyngeal motility w/ -Decreased airway closure due to decreased laryngeal elevation and anterior hyoid excursion. -Aspiration of thin liquids via cup and straw. Aspiration of mildly/nectar thick liquids via cup. Delayed, reflexive cough w/ all aspiration events. Aspiration occurred during the second swallow of these liquid trials due to pharyngeal residues in the pyriform sinuses spilling to the trachea during the second swallow. -Some sip sizes taken during MBSS were large/sequential despite FRONT OFFICE ATTENDANT cues for small sip. Decreased bolus size is recommended to decrease aspiration risk. FRONT OFFICE ATTENDANT provided information re: bolus control cup. The esophageal phase is primarily marked by... -Retention of pudding in the middle esophagus, which appeared to fully clear after liquid wash. -Retention of cookie in the middle and lower esophagus, which did not appear to somewhat clear (still moderate retention) w/ liquid wash Recommendations Diet: Easy to Chew Textures (Moisten Dry Textures) and Thin Liquids Comment: STOP meal if increased s/s of reflux, sensation of retention, or regurgitation despite use of strategies listed below and resume meal at a later time. Compensatory Strategies: Small Bites, Small Sips (Hard swallows, 10cc bolus control cup), Slow Rate, Alternate bites/solids and sips/liquids, Sitting upright and Remain sitting upright for 30 minutes after PO intake Supervision: Assist as needed ( informed the FRONT OFFICE ATTENDANT that supervision at each meal is not possible, FRONT OFFICE ATTENDANT recommends supervision as much as able to cue use of safe swallow strategies) Recommend Repeat Modified Barium Swallow: TBD Need for Skilled Speech Therapy Services: Yes Comment: -Train the patient in use of strategies to decrease risk for aspiration and reflux aspiration. Pt may benefit from visual reminder cards due to inability for direct supervision at all meals. -Ongoing assessment of diet tolerance of recommended textures/strategies. Chin tuck was also an effective strategy if s/s of aspiration persist w/ use of effortful swallow. -Train the patient in oral motor and oropharyngeal exercise program (lingual coordination and resistance exercises, Nile, Effortful, CTAR) Recommended Referrals: GI Consult (Pt is NOT recommended for esophagram due to aspiration risk.) Education Completed: 1. Described result of evaluation., 4. Family/caregivers understand evaluation & agree w/ goals & tx plan. and 7. Pt requires further education on strategies & risks. Comment: FRONT OFFICE ATTENDANT provided extensive education w/ pt and in results and recommendations of MBSS via review of some images, verbal discussion, and handouts (Easy to Chew diet texture information/testing, MBSS Recommendations, and Provale Bolus Control Cup information). Education well received. Pt would benefit from continued training in safe swallowing precautions. Status Active ST Patient: Active Contact Information [facility] Speech Therapy:: Heather Titus M.A. [facility]-FRONT OFFICE ATTENDANT? Speech-Language Pathologist?? [facility] [address] [place] [address]? [email or web address]?? [phone]
--- NOTE | 2025-05-14 13:12 | ST ---
[facility] Speech Pathology [address] [place] [address] Modified Barium Swallow Study MR#: [id number] Acct: [id number] Name: KEVIN GRIFFITH Rep #: [id number] : 1945 79 From: Heather Titus M.A., [facility]-BELT DRESSER Modified Barium Swallow Patient Information Study Date: 05/09/25 Study Time: 13:05 Direct Billable Minutes: 120 Total Minutes procedure & reportin Diagnosis: Dysphagia R13.10 Referring Physician: Vick Rosenberg Reason for Referral: The patient presents for repeat MBSS recommended by his OP BELT DRESSER. Patient and report coughing w/ food and drink at every meal. No choking or Heimlich required in the past, but he has frequent coughing episodes and his is fearful of choking w/ extent of coughing. She reports he has most difficulty swallowing dry meats. He reports most difficulty w/ liquids. He has had swallowing difficulty for ~3.5 years, but it appears to be getting much worse per report. 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 BSE 02/26/2025 revealed dysphagia and recommended the following diet textures and safe swallowing strategies ? Regular (Level 7), Liquids: Thin (Level 0), Safey Precautions/Swallowing Recommendations (Check all that Apply): Upright Position at Least 30 Minutes After Meals, Small Sips & Bites when Eating, No Straw, Multiple Swallows, Alternate Liquids & Solids and Other (Specify Below), Other: Effortful swallows with liquids.? BSE also recommended a repeat MBSS for further evaluation of aspiration risk and to determine appropriate dysphagia interventions. 09/20/24 MBSS revealed mild oropharyngeal dysphagia and recommended the following diet textures and safe swallowing strategies: ?Regular Textures and Thin Liquids (w/ effortful swallow)?Compensatory Strategies: Small Bites, Small Sips, No Straws, Slow Rate, Multiple Swallows, Alternate bites/solids and sips/liquids, Sitting upright, Remain sitting upright for 30 minutes after PO intake and Assist with verbal cues to use recommended strategies.? Current Diet Ordered: Regular textures / Thin liquids Dentition: Natural Teeth and Missing Teeth Mental Status: Impaired (Dementia) Respiratory Status: Oxygenating on Room Air Penetration-Aspiration Scale Penetration-Aspiration Scale: OBJECTIVE ASSESSMENT OF SWALLOW FUNCTION (QUANTITATIVE ? PER TRIAL): PENETRATION / ASPIRATION SCALE (OBANDO): 1 = does not enter airway 2 = enters airway/above vocal folds/ejected 3 = enters airway/above vocal folds/not ejected 4 = enters airway/contacts vocal folds/ejected 5 = enters airway/contacts vocal folds/not ejected 6 = enters airway/below vocal folds/ejected 7 = enters airway/below vocal folds/not ejected despite effort 8 = enters airway/below vocal folds/no effort VIDEOFLOROSCOPIC SCALE SCORE (OBANDO): Grade I = aspiration of material that has penetrated into the laryngeal vestibule, intact cough reflex Grade II = aspiration < 10 % of the bolus, intact cough reflex Grade III = aspiration of < 10 % of the bolus, reduced cough reflex or aspiration of > 10 % of the bolus, intact cough reflex Grade IV = aspiration of > 10 % of the bolus, reduced cough reflexPenetration-Aspiration Scale Score Thin Liquid via teaspoon: Result: 1= does not enter airway Thin Liquid via teaspoon Trial 2: Result: 1= does not enter airway Thin Liquid via small single sip: cup: Result: 2= enter airway/above vocal folds/ejected [place] Thick Liquid via large single sip: cup: Result: 7= enters airways/below vocal folds/not ejected despite effort Pudding via teaspoon: Result: 1= does not enter airway Comment: Esophageal screen - Retention of pudding in the middle esophagus. Thin Liquid via single sip: straw: Result: 7= enters airways/below vocal folds/not ejected despite effort Comment: Esophageal screen - Complete clearance. 1/2 Cookie coated in barium pudding: Result: 1= does not enter airway Comment: Esophageal screen - Retention of cookie in the middle and lower esophagus. Thin Liquid via sequential sips: cup: Result: 7= enters airways/below vocal folds/not ejected despite effort Comment: Esophageal screen - Some clearance (still moderate retention) w/ liquid wash. Thin Liquid via large single sip: cup Chin tuck: Result: 2= enter airway/above vocal folds/ejected Thin Liquid via small single sip: cup Chin tuck: Result: 2= enter airway/above vocal folds/ejected Thin Liquid via small single sip: cup Chin tuck Trial 2: Result: 2= enter airway/above vocal folds/ejected Thin Liquid via large single sip: cup Chin tuck Trial 2: Result: 2= enter airway/above vocal folds/ejected Thin Liquid via large single sip: cup Effortful swallow: Result: 1= does not enter airway Thin Liquid via small single sip: cup Effortful swallow: Result: 1= does not enter airway Oral Phase Labial Seal: No Labial Escape Tongue Control During Bolus Hold: Posterior escape of greater than half of bolus Bolus Preparation/Mastication: Slow prolonged chewing/mashing with complete recollection Bolus Transport/Lingual Motion: Repetitive/disorganized tongue motion Oral Residue: Majority of bolus remaining Pharyngeal Phase Initiation of Pharyngeal Swallow: Bolus head in pyriforms Soft Palate Elevation: Trace column of contrast/air between soft palate and pharyngeal wall Laryngeal Elevation: Partial superior movement thyroid cart/partial apprx aryt-epig petiole Anterior Hyoid Excursion: Partial anterior movement Epiglottic Movement: Complete inversion Laryngeal Vestibule Closure at Height of Swallow: Incomplete; narrow column of air/contrast in laryngeal vestibule Pharyngeal Stripping Wave: Present - diminished Pharyngoesophageal Segment Opening: Parital distension and partial duration; parital obstruction of flow (trace retention in the UES) Tongue Base Retraction: Narrow column of contrast between tongue base & post. pharyngeal wall Pharyngeal Residue: Collection of residue within or on pharyngeal structures Esophageal Phase Esophageal Clearance: Esophageal retention Diagnosis/Impression Diagnosis: Moderate oropharyngeal dysphagia R13.12; Esophageal dysphagia R13.14 Impression: The oral phase is primarily marked by... -Decreased bolus control with >1/2 of the bolus spilling to the pharynx prior to swallow onset. -Disorganized, slowed tongue motion for A-P transport. -Slowed, but complete mastication. -Moderate oral residues, which at time spilled to the pharynx after the swallow. The pharyngeal phase is primarily marked by... -Delayed swallow onset. -Decreased pharyngeal motility w/ -Decreased airway closure due to decreased laryngeal elevation and anterior hyoid excursion. -Aspiration of thin liquids via cup and straw. Aspiration of mildly/nectar thick liquids via cup. Delayed, reflexive cough w/ all aspiration events. Aspiration occurred during the second swallow of these liquid trials due to pharyngeal residues in the pyriform sinuses spilling to the trachea during the second swallow. -Some sip sizes taken during MBSS were large/sequential despite BELT DRESSER cues for small sip. Decreased bolus size is recommended to decrease aspiration risk. BELT DRESSER provided information re: bolus control cup. The esophageal phase is primarily marked by... -Retention of pudding in the middle esophagus, which appeared to fully clear after liquid wash. -Retention of cookie in the middle and lower esophagus, which did not appear to somewhat clear (still moderate retention) w/ liquid wash Recommendations Diet: Easy to Chew Textures (Moisten Dry Textures) and Thin Liquids Comment: STOP meal if increased s/s of reflux, sensation of retention, or regurgitation despite use of strategies listed below and resume meal at a later time. Compensatory Strategies: Small Bites, Small Sips (Hard swallows, 10cc bolus control cup), Slow Rate, Alternate bites/solids and sips/liquids, Sitting upright and Remain sitting upright for 30 minutes after PO intake Supervision: Assist as needed ( informed the BELT DRESSER that supervision at each meal is not possible, BELT DRESSER recommends supervision as much as able to cue use of safe swallow strategies) Recommend Repeat Modified Barium Swallow: TBD Need for Skilled Speech Therapy Services: Yes Comment: -Train the patient in use of strategies to decrease risk for aspiration and reflux aspiration. Pt may benefit from visual reminder cards due to inability for direct supervision at all meals. -Ongoing assessment of diet tolerance of recommended textures/strategies. Chin tuck was also an effective strategy if s/s of aspiration persist w/ use of effortful swallow. -Train the patient in oral motor and oropharyngeal exercise program (lingual coordination and resistance exercises, Nile, Effortful, CTAR) Recommended Referrals: GI Consult (Pt is NOT recommended for esophagram due to aspiration risk.) Education Completed: 1. Described result of evaluation., 4. Family/caregivers understand evaluation & agree w/ goals & tx plan. and 7. Pt requires further education on strategies & risks. Comment: BELT DRESSER provided extensive education w/ pt and in results and recommendations of MBSS via review of some images, verbal discussion, and handouts (Easy to Chew diet texture information/testing, MBSS Recommendations, and Provale Bolus Control Cup information). Education well received. Pt would benefit from continued training in safe swallowing precautions. Status Active ST Patient: Active Contact Information [facility] Speech Therapy:: Heather Titus M.A. CCC-BELT DRESSER? Speech-Language Pathologist?? [place] [address] [address]? [email or web address]?? [phone] 05/09/25 1600 <Electronically signed by Heather Titus M.A., CCC-BELT DRESSER> Heather Titus M.A., CCC-BELT DRESSER
--- NOTE | 2025-05-14 13:12 | ST ---
[facility] Speech Pathology [address] [place] [address] Modified Barium Swallow Study MR#: [id number] Acct: [id number] Name: KEVIN GRIFFITH Rep #: [id number] : 1945 79 From: Heather Titus M.A., [facility]-HYDRATE CONTROL TENDER Modified Barium Swallow Patient Information Study Date: 05/09/25 Study Time: 13:05 Direct Billable Minutes: 120 Total Minutes procedure & reportin Diagnosis: Dysphagia R13.10 Referring Physician: Vick Rosenberg Reason for Referral: The patient presents for repeat MBSS recommended by his OP HYDRATE CONTROL TENDER. Patient and report coughing w/ food and drink at every meal. No choking or Heimlich required in the past, but he has frequent coughing episodes and his is fearful of choking w/ extent of coughing. She reports he has most difficulty swallowing dry meats. He reports most difficulty w/ liquids. He has had swallowing difficulty for ~3.5 years, but it appears to be getting much worse per report. 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 BSE 02/26/2025 revealed dysphagia and recommended the following diet textures and safe swallowing strategies ? Regular (Level 7), Liquids: Thin (Level 0), Safey Precautions/Swallowing Recommendations (Check all that Apply): Upright Position at Least 30 Minutes After Meals, Small Sips & Bites when Eating, No Straw, Multiple Swallows, Alternate Liquids & Solids and Other (Specify Below), Other: Effortful swallows with liquids.? BSE also recommended a repeat MBSS for further evaluation of aspiration risk and to determine appropriate dysphagia interventions. 09/20/24 MBSS revealed mild oropharyngeal dysphagia and recommended the following diet textures and safe swallowing strategies: ?Regular Textures and Thin Liquids (w/ effortful swallow)?Compensatory Strategies: Small Bites, Small Sips, No Straws, Slow Rate, Multiple Swallows, Alternate bites/solids and sips/liquids, Sitting upright, Remain sitting upright for 30 minutes after PO intake and Assist with verbal cues to use recommended strategies.? Current Diet Ordered: Regular textures / Thin liquids Dentition: Natural Teeth and Missing Teeth Mental Status: Impaired (Dementia) Respiratory Status: Oxygenating on Room Air Penetration-Aspiration Scale Penetration-Aspiration Scale: OBJECTIVE ASSESSMENT OF SWALLOW FUNCTION (QUANTITATIVE ? PER TRIAL): PENETRATION / ASPIRATION SCALE (OBANDO): 1 = does not enter airway 2 = enters airway/above vocal folds/ejected 3 = enters airway/above vocal folds/not ejected 4 = enters airway/contacts vocal folds/ejected 5 = enters airway/contacts vocal folds/not ejected 6 = enters airway/below vocal folds/ejected 7 = enters airway/below vocal folds/not ejected despite effort 8 = enters airway/below vocal folds/no effort VIDEOFLOROSCOPIC SCALE SCORE (OBANDO): Grade I = aspiration of material that has penetrated into the laryngeal vestibule, intact cough reflex Grade II = aspiration < 10 % of the bolus, intact cough reflex Grade III = aspiration of < 10 % of the bolus, reduced cough reflex or aspiration of > 10 % of the bolus, intact cough reflex Grade IV = aspiration of > 10 % of the bolus, reduced cough reflexPenetration-Aspiration Scale Score Thin Liquid via teaspoon: Result: 1= does not enter airway Thin Liquid via teaspoon Trial 2: Result: 1= does not enter airway Thin Liquid via small single sip: cup: Result: 2= enter airway/above vocal folds/ejected [place] Thick Liquid via large single sip: cup: Result: 7= enters airways/below vocal folds/not ejected despite effort Pudding via teaspoon: Result: 1= does not enter airway Comment: Esophageal screen - Retention of pudding in the middle esophagus. Thin Liquid via single sip: straw: Result: 7= enters airways/below vocal folds/not ejected despite effort Comment: Esophageal screen - Complete clearance. 1/2 Cookie coated in barium pudding: Result: 1= does not enter airway Comment: Esophageal screen - Retention of cookie in the middle and lower esophagus. Thin Liquid via sequential sips: cup: Result: 7= enters airways/below vocal folds/not ejected despite effort Comment: Esophageal screen - Some clearance (still moderate retention) w/ liquid wash. Thin Liquid via large single sip: cup Chin tuck: Result: 2= enter airway/above vocal folds/ejected Thin Liquid via small single sip: cup Chin tuck: Result: 2= enter airway/above vocal folds/ejected Thin Liquid via small single sip: cup Chin tuck Trial 2: Result: 2= enter airway/above vocal folds/ejected Thin Liquid via large single sip: cup Chin tuck Trial 2: Result: 2= enter airway/above vocal folds/ejected Thin Liquid via large single sip: cup Effortful swallow: Result: 1= does not enter airway Thin Liquid via small single sip: cup Effortful swallow: Result: 1= does not enter airway Oral Phase Labial Seal: No Labial Escape Tongue Control During Bolus Hold: Posterior escape of greater than half of bolus Bolus Preparation/Mastication: Slow prolonged chewing/mashing with complete recollection Bolus Transport/Lingual Motion: Repetitive/disorganized tongue motion Oral Residue: Majority of bolus remaining Pharyngeal Phase Initiation of Pharyngeal Swallow: Bolus head in pyriforms Soft Palate Elevation: Trace column of contrast/air between soft palate and pharyngeal wall Laryngeal Elevation: Partial superior movement thyroid cart/partial apprx aryt-epig petiole Anterior Hyoid Excursion: Partial anterior movement Epiglottic Movement: Complete inversion Laryngeal Vestibule Closure at Height of Swallow: Incomplete; narrow column of air/contrast in laryngeal vestibule Pharyngeal Stripping Wave: Present - diminished Pharyngoesophageal Segment Opening: Parital distension and partial duration; parital obstruction of flow (trace retention in the UES) Tongue Base Retraction: Narrow column of contrast between tongue base & post. pharyngeal wall Pharyngeal Residue: Collection of residue within or on pharyngeal structures Esophageal Phase Esophageal Clearance: Esophageal retention Diagnosis/Impression Diagnosis: Moderate oropharyngeal dysphagia R13.12; Esophageal dysphagia R13.14 Impression: The oral phase is primarily marked by... -Decreased bolus control with >1/2 of the bolus spilling to the pharynx prior to swallow onset. -Disorganized, slowed tongue motion for A-P transport. -Slowed, but complete mastication. -Moderate oral residues, which at time spilled to the pharynx after the swallow. The pharyngeal phase is primarily marked by... -Delayed swallow onset. -Decreased pharyngeal motility w/ -Decreased airway closure due to decreased laryngeal elevation and anterior hyoid excursion. -Aspiration of thin liquids via cup and straw. Aspiration of mildly/nectar thick liquids via cup. Delayed, reflexive cough w/ all aspiration events. Aspiration occurred during the second swallow of these liquid trials due to pharyngeal residues in the pyriform sinuses spilling to the trachea during the second swallow. -Some sip sizes taken during MBSS were large/sequential despite HYDRATE CONTROL TENDER cues for small sip. Decreased bolus size is recommended to decrease aspiration risk. HYDRATE CONTROL TENDER provided information re: bolus control cup. The esophageal phase is primarily marked by... -Retention of pudding in the middle esophagus, which appeared to fully clear after liquid wash. -Retention of cookie in the middle and lower esophagus, which did not appear to somewhat clear (still moderate retention) w/ liquid wash Recommendations Diet: Easy to Chew Textures (Moisten Dry Textures) and Thin Liquids Comment: STOP meal if increased s/s of reflux, sensation of retention, or regurgitation despite use of strategies listed below and resume meal at a later time. Compensatory Strategies: Small Bites, Small Sips (Hard swallows, 10cc bolus control cup), Slow Rate, Alternate bites/solids and sips/liquids, Sitting upright and Remain sitting upright for 30 minutes after PO intake Supervision: Assist as needed ( informed the HYDRATE CONTROL TENDER that supervision at each meal is not possible, HYDRATE CONTROL TENDER recommends supervision as much as able to cue use of safe swallow strategies) Recommend Repeat Modified Barium Swallow: TBD Need for Skilled Speech Therapy Services: Yes Comment: -Train the patient in use of strategies to decrease risk for aspiration and reflux aspiration. Pt may benefit from visual reminder cards due to inability for direct supervision at all meals. -Ongoing assessment of diet tolerance of recommended textures/strategies. Chin tuck was also an effective strategy if s/s of aspiration persist w/ use of effortful swallow. -Train the patient in oral motor and oropharyngeal exercise program (lingual coordination and resistance exercises, Nile, Effortful, CTAR) Recommended Referrals: GI Consult (Pt is NOT recommended for esophagram due to aspiration risk.) Education Completed: 1. Described result of evaluation., 4. Family/caregivers understand evaluation & agree w/ goals & tx plan. and 7. Pt requires further education on strategies & risks. Comment: HYDRATE CONTROL TENDER provided extensive education w/ pt and in results and recommendations of MBSS via review of some images, verbal discussion, and handouts (Easy to Chew diet texture information/testing, MBSS Recommendations, and Provale Bolus Control Cup information). Education well received. Pt would benefit from continued training in safe swallowing precautions. Status Active ST Patient: Active Contact Information [facility] Speech Therapy:: Heather Titus M.A. CCC-HYDRATE CONTROL TENDER? Speech-Language Pathologist?? [place] [address] [address]? [email or web address]?? [phone] 05/09/25 1600 <Electronically signed by Heather Titus M.A., CCC-HYDRATE CONTROL TENDER> Heather Titus M.A., CCC-HYDRATE CONTROL TENDER
--- NOTE | 2025-05-19 12:26 | HP.SP.DC_ITS ---
ST Discharge Summary Discharged: Discharge: Luis Armando Darling is discharged from [facility] as of 05/14/25 as he requested discharge. He was evaluated on 02/25/25 for dysphagia and dysphonia due to Parkinson?s disease. He completed a total of 10 visits with limited progress made on increasing volume. He also was given home exercise program for volume as well as oropharyngeal exercises which he reported he often forgot. He moved into assisted living recently due to high level of falls at home. He completed an MBSS on 05/09/25 with the following recommendations: Diet: Easy to Chew Textures (Moisten Dry Textures) and Thin Liquids Comment: STOP meal if increased s/s of reflux, sensation of retention, or regurgitation despite use of strategies listed below and resume meal at a later time. Compensatory Strategies: Small Bites, Small Sips (Hard swallows, 10cc bolus control cup), Slow Rate, Alternate bites/solids and sips/liquids, Sitting upright and Remain sitting upright for 30 minutes after PO intake Supervision: Assist as needed ( informed the COMPLETION MANAGER that supervision at each meal is not possible, COMPLETION MANAGER recommends supervision as much as able to cue use of safe swallow strategies). On his last visit he requested to discontinue therapy at [facility] as he stated he has too many appointments and will consider getting therapy at his assisted living. Please see daily notes and reports for complete details. Thank you for allowing me to participate in the care of this patient.
--- NOTE | 2025-05-19 12:26 | HP.SP.DC_ITS ---
ST Discharge Summary Discharged: Discharge: Luis Armando Darling is discharged from [facility] as of 05/14/25 as he requested discharge. He was evaluated on 02/25/25 for dysphagia and dysphonia due to Parkinson?s disease. He completed a total of 10 visits with limited progress made on increasing volume. He also was given home exercise program for volume as well as oropharyngeal exercises which he reported he often forgot. He moved into assisted living recently due to high level of falls at home. He completed an MBSS on 05/09/25 with the following recommendations: Diet: Easy to Chew Textures (Moisten Dry Textures) and Thin Liquids Comment: STOP meal if increased s/s of reflux, sensation of retention, or regurgitation despite use of strategies listed below and resume meal at a later time. Compensatory Strategies: Small Bites, Small Sips (Hard swallows, 10cc bolus control cup), Slow Rate, Alternate bites/solids and sips/liquids, Sitting upright and Remain sitting upright for 30 minutes after PO intake Supervision: Assist as needed ( informed the PIANO REGULATOR INSPECTOR that supervision at each meal is not possible, PIANO REGULATOR INSPECTOR recommends supervision as much as able to cue use of safe swallow strategies). On his last visit he requested to discontinue therapy at [facility] as he stated he has too many appointments and will consider getting therapy at his assisted living. Please see daily notes and reports for complete details. Thank you for allowing me to participate in the care of this patient.
== END 2025-05-14 19:00 | disposition home or self-care (01) ==
LOC: SP 12:30
PROVIDERS: PCP Family Medicine; Referring Provider Psychiatry & Neurology Neurology; Visit Provider Psychiatry & Neurology Neurology
DX: I69.322 Dysarthria following cerebral infarction (principal); G20.A2 Parkinson's disease without dyskinesia, with fluctuations; R13.10 Dysphagia, unspecified
CPT/HCPCS: 92507; 92524; 92526; 92610; 92611

== ENCOUNTER → 2025-05-26 | Outpatient (CLI) | payer MEDICARE, OTHER, SELFPAY ==
[2025-05-26 16:14] LABS: AST(SGOT) 14 U/L (<=37); Alanine Aminotransfer ALT/SGPT 6 U/L (<=46); Anion Gap 12 (5-15); BUN 18 mg/dL (4-19); BUN/Creat Ratio 19.8 RATIO (10-20); Calcium,Total 9.2 mg/dL (7.6-11.0); Carbon Dioxide 25.8 mmol/L (21.0-32.0); Chloride 104 mmol/L (98-108); Glucose 52 mg/dL (70-99); Potassium 3.9 mmol/L (3.3-5.1); Vitamin B12 287 pg/mL (180-914)
[2025-05-28 15:08] LABS: Folate, Hemolysate Test 498.0 ng/mL (Not Estab.); Folate, RBC (Hct) Test 45.8 % (37.5-51.0); Folates, RBC Test 1087 ng/mL (>498)
== END | disposition home or self-care (01) ==
LOC: MFPLAB 13:39
PROVIDERS: PCP Family Medicine; Referring Provider Internal Medicine Endocrinology, Diabetes & Metabolism; Visit Provider Internal Medicine Endocrinology, Diabetes & Metabolism
DX: E11.42 Type 2 diabetes mellitus with diabetic polyneuropathy (principal); G62.9 Polyneuropathy, unspecified
CPT/HCPCS: 36415; 80048; 82607; 82747; 83036; 84450; 84460; 85014

== ENCOUNTER 2025-06-08 18:02 | Observation (INO) | payer MEDICARE, OTHER, SELFPAY ==
[2025-06-08 18:03] VITALS: BP 163/69; PULSE 95; RESP 24; TEMP 36.8; O2SAT 94; BMI 35.9
--- NOTE | 2025-06-08 18:16 | CT_ITS ---
PROCEDURE: BRAIN/HEAD WITHOUT CONTRAST 06/08/2025 REASON FOR EXAM: SYNCOPE,FALL, HEAD INJURY TECHNIQUE: BRAIN/HEAD WITHOUT CONTRAST Coronal and Sagittal reconstruction series were provided. One or more dose reduction techniques were used (e.g., Automated exposure control, adjustment of the mA and/or kV according to patient size, use of iterative reconstruction technique. RADIATION DOSE SUMMARY: CTDlvol: 45 mGy DLP: 813 mGycm COMPARISON: CT head 04/09/2020 FINDINGS: Brain: No acute intracranial hemorrhage, mass effect, or midline shift. Low density in the periventricular white matter suggests mild chronic small vessel ischemic changes. CSF Spaces: Sinuses/Mastoids: Scattered opacification of the ethmoid air cells. Aerosolized secretions with air-fluid levels in the maxillary sinuses. Bones: No displaced calvarial fracture. Small left posterior scalp hematoma. Status post bilateral cataract extraction. Atherosclerotic calcification of the intracranial arteries. CT/Brain/Head without Contrast IMPRESSION: 1. No acute intracranial abnormality. Small left posterior scalp hematoma. 2. Ethmoid and maxillary sinus disease, correlate for clinical evidence of acu te sinusitis. Reading Location: [id number]
--- NOTE | 2025-06-08 18:16 | CT_ITS ---
PROCEDURE: SPINE CERVICAL WITHOUT CONTRAS 06/08/2025 REASON FOR EXAM: FALL TECHNIQUE: SPINE CERVICAL WITHOUT CONTRAS Coronal and Sagittal reconstruction series were provided. One or more dose reduction techniques were used (e.g., Automated exposure control, adjustment of the mA and/or kV according to patient size, use of iterative reconstruction technique. RADIATION DOSE SUMMARY: CTDlvol: 20 mGy DLP: 510 mGycm COMPARISON: Cervical spine CT 04/09/2025 FINDINGS: Cervical vertebral body heights are maintained. There is straightening of the normal cervical lordosis which may be related to pain, positioning, or spasm. No displaced fracture. Degenerative calcification surrounding the odontoid process. Multilevel disc height loss with uncovertebral and facet arthropathy. Prevertebral soft tissues are unremarkable. Lung apices are clear. CT/Spine Cervical without Contras IMPRESSION: No acute osseous abnormality of the cervical spine. Multilevel degenerative ch anges. Reading Location: [id number]
--- NOTE | 2025-06-08 18:17 | EKG12_ITS ---
Test Reason : FALL Blood Pressure : */* mmHG Vent. Rate : 88 BPM Atrial Rate : 88 BPM P-R Int : 148 ms QRS Dur : 126 ms QT Int : 392 ms P-R-T Axes : 45 71 9 degrees QTcB Int : 474 ms Normal sinus rhythm Right bundle branch block Abnormal ECG Confirmed by Adonis Nguyen ([id number]), society editor YEHUDA BENOIT ([id number]) on 06/10/2025 1:11:17 PM Referred By: CHASITY Confirmed By: Adonis Nguyen
--- NOTE | 2025-06-08 18:18 | EX.ED.DYSGE1 ---
HPI History of Present Illness Chief Complaint: Fall Detail of Chief Complaint: Syncope with head injury Informant: patient Narrative Narrative: Patient presents from extended-care facility after a syncopal episode. Patient states that he had gotten lightheaded so he sat on his rollator and the next thing he remembers is waking up on the floor. Does complain of headache. Denies neck pain. Denies chest pain or shortness of breath. He has history of Parkinson's. Denies any pain in his abdomen or legs. Patient not anticoagulated. [facility] Medical History Parkinson's disease Right bundle branch block (RBBB) Obesity Type 2 diabetes mellitus Essential (primary) hypertension Cataract Back problem Arthritis HLD (hyperlipidemia) Paroxysmal atrial fibrillation Home Medications ?Medication ?Instructions ?Recorded ?Last Taken ?Type pravastatin 80 mg tablet 80 mg PO QDAY 04/06/18 Unknown History fluticasone fur. 200 mcg-umeclid 1 inh inhalation DAILY 04/12/22 Unknown History 62.5 mcg-vilant 25 mcg inhalat.powder (Trelegy Ellipta) pantoprazole 40 mg tablet,delayed 40 mg PO DAILY 04/12/22 Unknown History release finasteride 5 mg tablet 5 mg PO DAILY 04/11/23 Unknown History alfuzosin 10 mg tablet,extended 10 mg PO DAILY 04/12/23 Unknown History release 24 hr cholecalciferol (vitamin D3) 25 50 mcg PO DAILY 04/12/23 Unknown History mcg (1,000 unit) capsule insulin aspart U-100 100 unit/mL See Rx Instructions .Route .COMPLEX 04/12/23 Unknown History subcutaneous solution (Novolog U-100 Insulin aspart) metformin 750 mg tablet,extended 750 mg PO QHS 04/12/23 Unknown History release 24 hr ascorbic acid (vitamin C) 1,000 mg 1 g PO DAILY 06/27/24 Unknown History capsule insulin glargine U-300 conc 300 60 unit subcut DAILY 06/27/24 Unknown History unit/mL (3 mL) subcutaneous pen (Toujeo Max U-300 SoloStar) zinc gluconate 30 mg tablet 30 mg PO DAILY 06/27/24 Unknown History hydrocodone-acetaminophen 5-325mg 1 tab PO Q6H PRN PRN Pain 4 days 10/12/24 Unknown Rx 5mg-325mg #15 TABLETS ropinirole 2 mg tablet 2 mg PO TID #270 tabs 03/20/25 Unknown Rx carbidopa 25 mg-levodopa 100 mg 2 tab PO .QID #720 tabs 03/31/25 Unknown Rx tablet doxepin 25 mg capsule 25 mg PO QHS #90 caps 03/31/25 Unknown Rx propranolol 60 mg capsule,24 60 mg PO DAILY #90 caps 03/31/25 Unknown Rx hr,extended release Allergy/AdvReac Type Severity Reaction Status Date / Time metoclopramide (From Reglan) Allergy Severe HYPER Verified 06/08/25 18:03 Family History Father Leukemia Surgical History History of total left knee replacement (TKR) History of left tennis elbow Hx of spinal fusion History of skin cancer Social History household members: spouse housing: house Smoking Status: Former smoker alcohol intake: never substance use type: does not use ROS ROS ED Review of Systems ROS Unobtainable: other Constitutional Constitutional ED: Reports lethargy; Denies chills, fever(s), sweats or weight loss Eyes Eyes: Denies blurry vision, change in vision or diplopia ENT ENT ED: Denies rhinorrhea or sore throat Cardiovascular Cardiovascular: Denies chest pain, orthopnea or racing heartbeat Respiratory/Chest Respiratory/Chest: Denies cough, dyspnea, dyspnea on exertion, orthopnea or sputum Gastrointestinal Gastrointestinal: Denies abdominal pain, diarrhea, nausea or vomiting Genitourinary Genitourinary ED: Denies dysuria, hematuria or urinary frequency Musculoskeletal Musculoskeletal: Denies arthralgias, back pain, myalgias or neck pain Integumentary Denies abscess, Abrasions or rash Neurologic Neurologic: Reports headache(s) and other Details: Syncope ; Denies weakness Psychiatric Psychiatric: Denies anxiety, depression or suicidal thoughts Endocrine Endocrinology: Denies polydipsia, polyphagia or polyuria Hematologic/Lymphatic Hematologic/Lymphatic: Denies easy bleeding, easy bruising or lymphadenopathy Allergic/Immunologic Allergic/Immunologic ED: Denies mouth swelling, tongue swelling or urticaria EXAM Physical Exam Const Vital Signs: 06/08/25 18:03 06/08/25 18:06 06/08/25 19:57 Temperature 98.3 F Temperature Source Oral Pulse Rate 95 Pulse Rate [Lying] 99 Pulse Rate [Sitting (for 1 minute prior to obtaining)] 98 Pulse Rate [Standing (for 1 minute prior to obtaining)] 99 Respiratory Rate 24 H Respiratory Effort Normal Respiratory Depth Normal Respiratory Pattern Normal Blood Pressure 163/69 H Blood Pressure [Lying] 151/76 H Blood Pressure [Sitting (for 1 minute prior to obtaining)] 145/79 H Blood Pressure [Standing (for 1 minute prior to obtaining)] 155/88 H Blood Pressure Mean 100 Blood Pressure Mean [Lying] 101 Blood Pressure Mean [Sitting (for 1 minute prior to obtaining)] 101 Blood Pressure Mean [Standing (for 1 minute prior to obtaining)] 110 Pulse Ox 94 Oxygen Delivery Method Room Air Room Air 06/08/25 20:02 Temperature Temperature Source Pulse Rate 97 Pulse Rate [Lying] Pulse Rate [Sitting (for 1 minute prior to obtaining)] Pulse Rate [Standing (for 1 minute prior to obtaining)] Respiratory Rate Respiratory Effort Respiratory Depth Respiratory Pattern Blood Pressure 155/88 H Blood Pressure [Lying] Blood Pressure [Sitting (for 1 minute prior to obtaining)] Blood Pressure [Standing (for 1 minute prior to obtaining)] Blood Pressure Mean 110 Blood Pressure Mean [Lying] Blood Pressure Mean [Sitting (for 1 minute prior to obtaining)] Blood Pressure Mean [Standing (for 1 minute prior to obtaining)] Pulse Ox Oxygen Delivery Method Positive well nourished and well developed General Appearance ED: well developed and NAD HEENT Reports TM's clear and moist mucous membranes HEENT Narrative: Patient with some superficial abrasions to the posterior occiput without significant hematoma. No bony step-offs or depressions. No significant lacerations. normocephalic and atraumatic; Negative for trauma or tenderness Tympanic Membrane ED: Yes TM's clear Eyes PERRL and EOMs intact bilaterally General Eye ED: Negative for pale conjunctiva or scleral icterus Neck no lymphadenopathy, supple and no JVD Neck Narrative: Mild diffuse tenderness on exam. No bony step-offs or depressions. Good range of motion. General: Negative for tenderness Chest Wall inspection of chest normal and palpation of chest normal Chest: Negative for tenderness Resp normal respiratory effort and clear to auscultation bilaterally Effort and Inspection: Negative for respiratory distress or pain with movement Auscultation: Negative for rhonchi, wheezes or diminished lung sounds Cardio regular rate, regular rhythm, S1 normal heart sound, S2 normal heart sound and no murmurs Peripheral Pulses: pulses 2+ throughout GI normal to inspection, nondistended, normoactive bowel sounds, soft to palpation, non-tender, non-distended and no masses Back/Spine no CVA tenderness and no thoracic nor lumbar tenderness Extremity Extremity Narrative: Superficial abrasion to the right knee which she states is prior to the fall today. No bony tenderness on exam. Pelvis stable. Normal range of motion in both hips normal range of motion both knees. General Extremety ED: Negative for edema General Extremity: Negative for edema Neuro oriented x3, CN's II-XII intact bilaterally, no sensory deficits noted and gait normal Sensorium / Orientation: awake, alert, oriented to person, oriented to place and oriented to time Motor Exam: strength 5/5 throughout and strength abnormal Psych mental status grossly normal Skin no rashes or lesions noted and no wounds MDM MDM MDM Narrative Medical decision making narrative: Patient presents to the emergency department with plaint of a syncopal episode. He is not sure exactly what happened. He remembers feeling dizzy and then he sat on his rollator and then remembers waking up on the floor. Patient had assisted living facility. Complains of headache. Denies chest pain or trouble breathing. Denies palpitations. IV line established. EKG obtained showed a sinus rhythm with a rate of 88 bpm with right bundle branch block. CBC with differential shows white count of 9.2 with hemoglobin 14.4 and platelet count 251. Chemistries unremarkable. Troponin was normal at 17. CT scan of the brain without contrast showed no acute process. CT C-spine showed no fractures. Urinalysis ordered and pending. This point etiology of syncopal episode unclear. Orthostatic vital signs were negative. Will discuss with hospitalist to evaluate for admission for an observation. Lab Data Attestation: I reviewed the patient's lab results. Labs: Laboratory Results - last 24 hr 06/08/25 06/08/25 18:17 19:25 WBC 9.2 RBC 4.67 Hgb 14.4 Hct 41.6 MCV 89.1 MCH 30.8 MCHC 34.6 RDW Std Deviation 42.2 RDW Coeff of Nori 13.2 Plt Count 261 MPV 10.4 Immature Gran % (Auto) 0.800 Neut % (Auto) 51.9 Lymph % (Auto) 36.0 [place] % (Auto) 8.5 Eos % (Auto) 1.9 Baso % (Auto) 0.9 Absolute Neuts (auto) 4.8 Absolute Lymphs (auto) 3.30 Nucleated RBC % 0 Sodium Cancelled 139 Potassium Cancelled 4.0 Chloride Cancelled 103 Carbon Dioxide Cancelled 24.5 Anion Gap Cancelled 12 BUN Cancelled 22 H Creatinine Cancelled 0.85 Estim Creat Clear Calc Cancelled 87.49 Est GFR (MDRD) Non-Af Cancelled 88 BUN/Creatinine Ratio Cancelled 26.0 H Glucose Cancelled 224 H Calcium Cancelled 9.0 Troponin T High Sens Cancelled 17 Radiography Diagnostic Testing: Clinical Impression(s) from Imaging Studies Brain CT 06/08/25 18:16 IMPRESSION: 1. No acute intracranial abnormality. Small left posterior scalp hematoma. 2. Ethmoid and maxillary sinus disease, correlate for clinical evidence of acute sinusitis. Reading Location: [facility] Cervical Spine CT 06/08/25 18:16 IMPRESSION: No acute osseous abnormality of the cervical spine. Multilevel degenerative changes. Reading Location: [facility] Chest X-Ray 06/08/25 18:43 IMPRESSION: Low lung volumes, without definite evidence of an acute cardiopulmonary abnormality. Reading Location: [facility] 1 view chest x-ray obtained interpreted by myself is no evidence of infiltrate or pneumothorax or acute disease process. Radiology in agreement. EKG Initial EKG: Attestation: I personally reviewed and interpreted this EKG as follows: Comments: Sinus rhythm with rate of 88 bpm with right bundle branch block Discharge Plan Triage Chief Complaint: Fall ED Provider: Joe Soto Dx/Rx/DC Orders Clinical Impression: Syncope, Closed head injury, History of Parkinson's disease, History of dementia Prescriptions: No Action pravastatin 80 mg tablet 80 mg PO QDAY metformin 750 mg tablet extended release 24 hr 750 mg PO QHS insulin aspart U-100 [Novolog U-100 Insulin aspart] 100 unit/mL solution See Rx Instructions .ROUTE .COMPLEX Patient Comments: Sliding scale Rx Instructions: Sliding scale Trelegy Ellipta 200-62.5-25 mcg blister with device 1 inh inhalation DAILY pantoprazole 40 mg tablet,delayed release (DR/EC) 40 mg PO DAILY cholecalciferol (vitamin D3) 25 mcg (1,000 unit) capsule 50 mcg PO DAILY alfuzosin 10 mg tablet extended release 24 hr 10 mg PO DAILY Rx Instructions: administer after the same meal each day insulin glargine U-300 conc [Toujeo Max U-300 SoloStar] 300 unit/mL (3 mL) insulin pen 60 unit subcut DAILY finasteride 5 mg tablet 5 mg PO DAILY zinc gluconate 30 mg tablet 30 mg PO DAILY ascorbic acid (vitamin C) 1,000 mg capsule 1 g PO DAILY ropinirole 2 mg tablet 2 mg PO TID Qty: 270 1RF carbidopa-levodopa 25-100 mg tablet 2 tab PO .QID Qty: 720 0RF doxepin 25 mg capsule 25 mg PO QHS Qty: 90 1RF propranolol 60 mg capsule,extended release 24 hr 60 mg PO DAILY Qty: 90 1RF hydrocodone-acetaminophen 5-325 mg tablet 1 tab PO Q6H PRN PRN (Reason: Pain) 4 Days Qty: 15 0RF Primary Care Provider: Ja Cooley Referrals: Ja Cooley MD [Primary Care Provider] - Print Language: Amharic Disposition Disposition: Acute Care Hospital [facility]
[2025-06-08] MEDS: 0.9% Normal Saline (1000mL) 1,000 ML 150 ML IV ×2 (18:26→23:40)
[2025-06-08 18:40] LABS: Hematocrit 41.6 % (40-54); Hemoglobin 14.4 g/dL (13.0-16.5); Immature Granulocytes Count 0.070 X10^3/uL (0.0-0.0); Mean Corp Hgb Conc 34.6 g/dL (32-36); Mean Corpuscular Volume 89.1 fL (80-94); Mean Platelet Vol. 10.4 fl (6.2-12.0); NRBC Flagged by Analyzer 0 % (0-5); Platelet Count 261 K/mm3 (150-450); RBC Distribution Width CV 13.2 % (11.6-14.6); RBC Distribution Width SD 42.2 fl (35.1-43.9); Red Blood Count 4.67 M/mm3 (4.6-6.2); White Blood Count 9.2 K/mm3 (4.4-11.0)
--- OUTSIDE RECORDS SUMMARY | 2025-06-08 18:41 | XMS RPT_ITS | CCD ---
Author Organization [facility] Inform ion Partnership [facility] Care Team Providers Care Rug Dyer Helper Name Role Phone Emigdio Crump (Historic) Primary Care Prov ider Patricia Mcgowan Primary Care Provider Unavailable Primary Care Provider Daniel Mcgowan MD, Patricia Ramon Primary Care Provider [phone] BARB MORTON Attending Unavailab le JOLLIFF, PATRICIA RAMON Primary Care Unavailable SELENEBARB TUBBS Referring Unavailab le SELENE, BARB MAS Attending Unavailab le JOLLIFF, PATRICIA TRISTEN Primary Care Unavailable SELENEBARB Admitting Unavailab le JOLLIFF, PATRICIA [facility] Primary Care Unavailable SELENE, BARB MAS Attending Unavailab le SELENEBARB Referring Unavailab le JOLLIFFPATRICIA Referring Unavailable SELENE, BARB MAS Admitting Unavailab le SELENE, BARB MAS Attending Unavailab le SELENEBARB Referring Unavailab le JOLLIFF, PATRICIA TRISTEN Primary Care Unavailable SELENEBARB Admitting Unavailab SARAH Peace Attending Unavailable SELENEBARB Admitting Unavailab HARPAL Brody Attending Unavailable JOLLRADHA, PATRICIA [facility] Primary Care Unavailable SELENE, BARB MAS Referring Unavailab le SELENE, BARB MAS Attending Unavailab le JOLLIFF, PATRICIA TRISTEN Primary Care Unavailable SELENEBARB Referring Unavailab le JOLLIFF, PATRICIA [facility] Primary Care Unavailable SELENE, BARB MAS Attending Unavailab le SELENE, BARB MAS Referring Unavailab le JOLLIFF, PATRICIA [facility] Primary Care Unavailable JASPREET QURESHI Attending Unavailable Ron Cooley Harvey Primary Care Provider Dr. Patricia Mcgowan Referring Provider Dr. Vladimir Sears Attending Provider Dr. Ron Cooley Primary Care Provider [phone] Dr. Silverio Amin Attending Provider Ron Cooley Harvey Primary Care Provider [phone] Ron Cooley erma Primary Care Provider Ron Cooley Harvey Primary Care Provider [phone] Lalo CIGAR BRANDER.RIGHT OF WAY SUPERVISOR, Erika K Unavailable Ron Cooley Harvey Primary Care Provider [phone] Lalo CIGAR BRANDER.RIGHT OF WAY SUPERVISOR, Erika K Unavailable CIGAR BRANDER.RIGHT OF WAY SUPERVISOR, Tatiana Unavailable PATRICIA MCGOWAN Primary Care Unavailable LIZBETH, JAYLYN Attending Unavailable LENI RUIZ Attending Unavailable LIZBETH, JAYLYN Referring [facility]available [facility] Primary Care Unavailabl e LIZBETH, JAYLYN Referring Unavailable ALEIDA RAMIREZ Attending Unavailable [facility], [facility] Primary Care Unavailabl e LIZBETH, JAYLYN Attending Unavailable [facility] Primary Care Unavailabl e LIZBETH, JAYLYN Attending Unavailable LIZBETH, JAYLYN Referring Unavailable [facility] Primary Care Unavailabl e [facility], [facility] Primary Care Unavailabl e MAINE MEDEL Attending Unavailable LIZBETH, JAYLYN Referring Unavailable [facility], [facility] Primary Care Unavailabl e KORI RYDER Attending Unavailable LIZBETH, JAYLYN Referring Unavailable [facility], [facility] Primary Care Unavailabl e KORI RYDER Attending Unavailable LIZBETH, JALYYN Referring Unavailable LIZBETH, JAYLYN Referring Unavailable [facility], [facility] Primary Care Unavailabl e BEBB KORI Attending Unavailable BEKORI WEEKS Attending Unavailable LIZBETH, JAYLYN Referring Unavailable [facility], [facility] Primary Care Unavailabl e [facility], [facility] Primary Care Unavailabl e LIZBETH, JAYLYN Referring Unavailable [facility], [facility] Primary Care JAYLYN Gonsalves Referring Unavailable Dr. [...] Provider Dr. Ron Cooley MD Attending Provider Dr. Ron Cooley MD Referring Provider Dr. Estuardo Mccormack DO Attending Provider Easton MONTEJO, Dr. Marte Emergency Provider Chet GARZA, Dr. Hickman Attending Provider Lenora GARZA, Dr. Ron Deleon Primary Care Provider Dr. Joe Soto DO Emergency Provider Charles MONTEJO, Dr. Diaz Attending Provider Lenora GARZA, Dr. Ron Deleon Primary Care Provider [phone] Colt GARZA, Dr. Kaur Attending Provider Chet GARZA, Dr. Hickman Referring Provider Chet GARZA, Dr. Hickman Referring Provider [phone] COLT GARZA, NATASHA Castro Primary Care Unavailable LENORA GARZA, RON Attending Unavailable COLT GARZA, NATASHA Castro Primary Care Unavailable LENORA GARZA, RON Attending Unavailable Dr. Ron Cooley MD Primary Care Provider Dr. Ron Cooley MD Referring Provider Dr. Ron Cooley MD Attending Provider Dr. Jose Perez MD, V Attending Provider Dr. Jose Perez MD, V Referring Provider Dr. Vick Santo MD Referring Provider [phone] Surya Dumont MD Referring Provider Surya Dumont MD Emergency Provider Rno Cooley MD Primary Care Provider RON COOLEY Primary Care Unavailable Chetan POWELL Attending Unavailable Dr. Ron Cooley MD Primary Care Provider Dr. Ron Cooley MD Attending Provider [phone] Dr. Ron Cooley MD Referring Provider Chet GARZA, Dr. Hickman Attending Provider Surya Dumont MD Attending Provider Chet GARZA, Dr. Hickman Referring Provider Iván GARZA, Dr. Matson Emergency Provider Chet GARZA, Dr. Hickman Referring Provider Iván GARZA, Dr. Matosn Attending Provider [phone] Lenora GARZA, Dr. Ron Deleon Primary Care Provider [phone] Lenora GARZA, Dr. Ron Deleon Referring Provider Lenora GARZA, Dr. Ron Deleon Attending Provider [phone] Colt GARZA, Dr. Kaur Referring Provider Whitley Kimball Referring Unavailable Whitley Kimball Attending Unavailable Schinner, Ron E Primary Care Unavailable Natasha Gregory Referring Unavailable Natasha Gregory Attending Unavailable Schinner, Ron E Primary Care Unavailable Vick Santo Referring Unavailable Vick Santo Attending Unavailable Silverner, Ron E Primary Care Unavailable Vick Santo Referring Unavailable Vick Santo Attending Unavailable Schinner, Ron E Primary Care Unavailable Colt Natasha Referring Unavailable Natasha Gregory Attending Unavailable Schinner, Ron E Primary Care Unavailable Vick Santo Attending Unavailable Schinner, Ron E Primary Care Unavailable Vick Santo Attending Unavailable Chet Vick Referring Unavailable Schinner, Ron E Primary Care Unavailable Schinner, Ron E Primary Care Unavailable Sibilia, Jose V Referring Unavailable Sibilia, Jose V Attending Unavailable Bhakti Gregorye Attending Unavailable Schinner, Ron E Primary Care Unavailable Schinner, Ron E Primary Care Unavailable Marlen, Imer Referring Unavailable Marlen, Imer Attending Unavailable Schinner, Ron E Referring Unavailable Schinner, Ron E Primary Care Unavailable Vladimir Sears Attending Unavailable Baddour, Vick Attending Unavailable Schinner, Ron E Primary Care Unavailable Schinner, Ron E Referring Unavailable Schinner, Ron E Referring Unavailable Baddour, Vick Attending Unavailable Schinner, Ron E Primary Care Unavailable Vick Santo Attending Unavailable Schinner, Ron E Referring Unavailable Schinner, Ron E Primary Care Unavailable Schinner, Ron E Referring Unavailable Vick Santo Attending Unavailable Schinner, Ron E Primary Care Unavailable Estuardo Mccormack Attending Unavailable Schinner, Ron E Primary Care Unavailable Schinner, Ron E Primary Care Unavailable Sibyamile, Jose Michaels Attending Unavailable Schinner, Ron E Primary Care Unavailable Osman Farooq Attending Unavailable Schinner, Ron E Primary Care Unavailable Sibilia, Jose V Referring Unavailable Sibilia, Jose V Attending Unavailable Schinner, Ron E Attending Unavailable Schinner, Ron E Primary Care Unavailable Schinner, Ron E Referring Unavailable Natasha Gregory Referring Unavailable Natasha Gregory Attending Unavailable Schinner, Ron E Primary Care Unavailable Schinner, Ron E Referring Unavailable Schinner, Ron E Attending Unavailable Schinner, Ron E Primary Care Unavailable Schinner, Ron E Primary Care Unavailable Reodica Surya Referring Unavailable Reodickhushbu Surya Attending Unavailable Dano Minor Attending Unavailable Schinner, Ron E Primary Care Unavailable Schinner, Ron E Primary Care Unavailable Joe Soto Attending Unavailable Schinner, Ron E Referring Unavailable Schinner, Ron E Primary Care Unavailable Schinner, Ron E Attending Unavailable Schinner, Ron E Primary Care Unavailable Schinner, Ron E Referring Unavailable Schinner, Ron E Attending Unavailable Schinner, Ron E Primary Care Unavailable Schinner, Ron E Referring Unavailable Schinner, Ron E Attending Unavailable Allergies Allergy Classification Reported Allergen(s) Allergy Type Date of Onset Reaction(s) Facility DOPamine Antagonists (3 sources) Metoclopramide Drug Allergy 03-01-20 18 Anxiety [facility] Unclassified (3 sources) Seasonal allergy Propensity to adverse reactions to substance 05-05-20 [facility] (12 sources) Metoclopramide; Translations: [METOCLOPRAMIDE HCL] Drug Allergy 10-05-20 [facility] (20 sources) Metoclopramide; Translations: [METOCLOPRAMIDE] Drug Allergy 08-25-20 Mental Status Change, Other [facility] Work Phone: Comment on above: anxiety (1 source) Metoclopramide Drug Allergy 05-11-20 [facility] Medications Current Medications Medication Drug Class(es) Dates Sig (Normalized) Sig (Original) acetaminophen 325 mg / HYDROcodone bitartrate 5 mg oral tablet (12 sources) Opioid Agonist Start: 10-12-2024 take 1 tablet by mouth every six hours as needed for pain Hydrocodone-Aceta minophen 5-325 mg tablet Active 1 {tbl} PO EVERY 6 HOURS NEEDED as needed for Pain 15 4 0 October 12, 2024 Closed fracture of one rib of left side Fracture of one rib, left side, initial encounter for closed fracture Start: 02-05-2018 End: 05-05-2021 HYDROcodone-acetaminophen (N ORCO) 5-325 MG per tablet [id number] actuat albuterol 0.09 mg/actuat metered dose [...] hydrochloride 10 mg extended release oral tablet (20 sources) alpha-Adrenergic Aravind Start: 023 take 1 tablet by mouth once daily at mealtime Alfuzosin 10 mg tablet extended release 24 hr Active 10 mg PO DAILY April 12, 2023 12:00am administer after the same meal each day ascorbic acid 1000 mg oral capsule (11 sources) Vitamin C Start: 024 take 1 g by mouth once daily [...] capsule Discontinued 25 mg PO AT BEDTIME 90 July 01, 2024 4:36pm December 11, 2024 [...] take 1 puff(s) by inhalation once daily ltjtcraezuw-gjpasdwom-gjaacgzs (Trelegy Ellipta) 100-62.5-25 mcg DsDv Inhale 1 puff daily . 0 Active Fluticasone-Umec lidin-Vilanter (20 sources) Sta rt: Foldarntnzv-Tmveizdqi-Uvpfta er (Trelegy Ellipta) 200-62.5-25 mcg blister with [...] oral tablet (20 sources) Biguanide Start: 04-12-20 take 1 tablet by mouth every twenty-four [...] 12/21/2022 Active rOPINIRole 2 mg oral tablet (20 sources) Nonergot Dopamine Agonist Start: 03-20-2025 take 1 tablet by mouth three times daily Ropinirole 2 mg tablet Active 2 mg PO THREE TIMES A DAY 270 March 20, 2025 12:00am Start: 02-06-2025 End: [...] 1 mg PO TWICE A DAY 180 0 February 06, 2025 12:00am March 20, 2025 [...] Active zinc gluconate 30 mg oral tablet (11 sources) Start: 06-27-2024 take 1 tablet by [...] 5-32 5 mg tablet Discontinued NMA PO 0 April 12, 2022 12:00am April 11, 2023 [...] (1 source) Anticholinergic, beta2-Adrenergic Agonist End: 05-05-20 take 1 dose by inhalation every four hours ipratropium-albuter ol (DUONEB) 0.5-2.5 (3) MG/3ML SOLN nebulizer solution Inhale 1 vial into the lungs every 4 hours 0 05/05/2021 Discontinued (LIST CLEANUP) ALPRAZolam 0.5 mg oral tablet (20 sources) Benzodiazepine Start: 01-29-20 End: 04-12-20 take 1 tablet by mouth at bedtime as needed Alprazolam (Xanax) 0.5 mg tablet Discontinued 0.5 mg PO AT BEDTIME as needed for insomnia 4 January 28, 2022 1:00am April 12, 2022 9:36am Start: 05-19-2021 ALPRAZolam (NI RAVAM) dissolvable tablet 0.25 mg amoxicillin 875 mg / clavulanate 125 mg oral tablet (20 sources) Penicillin-class Antibacterial Start: 10-04-2017 End: 04-06-2018 take 1 tablet by mouth every twelve hours Amoxicillin-Pot Clavulanate 875 MG tablet Discontinued 875 mg PO Q12H 20 October 04, 2017 1:00am April 06, 2018 [...] 12/12/2022 Discontinued take 1 tablet by ramona once daily aspirin 81 MG tablet Take 81 mg by mouth daily 0 Active Comment on above: Take 81 mg by mouth once daily. Take 81 mg by mouth. busPIRone hydrochloride 5 mg oral tablet (20 sources) Start: 09-02-2024 End: 12-11-2024 take 1 tablet by mouth three times daily Buspirone 5 mg tablet Discontinued 5 mg PO THREE TIMES A DAY 270 1 September 02, 2024 12:00am December 11, 2024 3:58pm Start: 05-10-2023 End: 08-07-2023 take 1 tablet by mouth twice daily Buspirone 5 mg tablet Discontinued 5 mg PO TWICE A DAY 180 0 June 05, 2023 5:12pm August 07, 2023 3:29pm carbidopa 25 mg / levodopa 100 mg oral tablet (20 sources) Aromatic Amino Acid Decarboxylation Inhibitor, Aromatic Amino Acid Start: 08-14-2023 End: 03-31-2025 Carbidopa-Levodopa 25-100 mg tablet Discontinued 2 {tbl} PO .QID 720 0 February 13, 2024 5:04pm March 27, 2024 11:31am Start: 08-14-2023 End: 03-27-2024 take 2 tablets by mouth four times daily Carbidopa-Levodopa Active 2 TABLET PO .QID 720 March 27, 2024 11:29am Start: 04-12-2023 End: 08-14-2023 Carbidopa-Levodopa 25-100 mg tablet Discontinued 2 {tbl} PO THREE TIMES A DAY 540 0 August 07, 2023 3:29pm August 14, 2023 [...] on above: [facility] cephalexin 500 mg oral [...] GUMMIES) donepezil hydrochloride 5 mg oral tablet (20 sources) Start: 12-11-2024 End: 03-20-2025 take 1 tablet by mouth once daily at bedtime Donepezil 10 mg tablet Discontinued 10 mg PO AT BEDTIME 90 December 11, 2024 1:00am March 20, 2025 3:51pm Begin after completing one month of treatment of donepezil 5mg nightly Start: 12-11-2024 End: 03-20-2025 take 1 tablet by mouth at bedtime Donepezil 5 mg tablet Discontinued 5 mg PO AT BEDTIME 30 December 11, 2024 1:00am March 20, 2025 [...] Comment on above: Take 1 capsule by [facility] once daily. EPINEPHrine 0.01 mg/ml / lidocaine [...] famotidine (PEPCID) tablet 2 0 mg fluticasone cuvhhoe-jrzmqrqillsz-gvwrwypwyr (TRELEGY ELLIPTA) 200-62.5-25 mcg powder inhaler (12 sources) take 1 puff(s) by inhalation once daily fluticasone uylvwxb-jttzmuiprfrh-dukmsotgpf (TRELEGY ELLIPTA) 200-62.5-25 mcg powder inhaler Inhale [...] sources) Anticholinergic Start: 04-06-2018 End: 04-11-2019 Ipratropium Stem 0.03 % spray,non-aerosol Discontinued 2 NMA INTRANASAL 2 to 3 times per day as needed April 06, 2018 12:00am April 11, 2019 11:44am Start: 04-06-2018 End: 04-11-2019 Ipratropium Stem Disconti nued 2 SPRAY INTRANASAL 2 to 3 times per day April 06, 2018 12:00am April 11, 2019 11:44am istradefylline 20 mg oral tablet (17 sources) Start: 11-23-2023 End: 06-27-2024 take 1 tablet by mouth once daily Istradefylline (Nourianz) 20 mg tablet Discontinued 20 mg PO DAILY 90 1 November 23, 2023 1:00am June 27, 2024 [...] 24 hr Discontinued 50 mg PO daily 90 3 February 18, 2019 8:39am April 12, 2021 9:04am mirtazapine 45 mg oral tablet (20 sources) Start: 03-27-2024 End: 09-02-2024 take 1 tablet by mouth at bedtime Mirtazapine 45 mg tablet Discontinued 45 mg PO AT BEDTIME 90 1 March 27, 2024 12:00am September 02, 2024 1:52pm Start: 09-06-2023 End: 03-27-2024 take 1 tablet by mouth at bedtime Mirtazapine 30 mg tablet Discontinued 30 mg PO AT BEDTIME 90 0 February 13, 2024 5:04pm March 27, 2024 [...] oral tablet (1 source) Anti-epileptic Agent Start: End: 2 take 0.5 tablet by mouth [...] oral capsule (20 sources) beta-Adrenergic Aravind Start: End: take 1 capsule by mouth once daily Propranolol 60 mg capsule,extended release 24 hr Discontinued 60 mg PO DAILY 90 1 December 11, 2024 3:59pm March 31, 2025 [...] (20 sources) Cholinergic Muscarinic Antagonist Start: 02-17-20 18 End: 05-05-20 21 take 1 capsule by mouth once daily Tolterodine 4 mg capsule,extended release 24hr Discontinued 4 mg PO daily April 06, 2018 12:00am April 12, 2021 9:03am traZODone hydrochloride 100 mg oral tablet (20 sources) Serotonin Reuptake Inhibitor Start: 10-09-20 End: 03-27-20 24 take 1 tablet by mouth at bedtime Trazodone 100 mg tablet Discontinued 100 mg PO AT BEDTIME 90 October 16, 2023 5:13pm March 27, 2024 11:31am Start: 09-20-2023 End: 10-09-2023 take 1 tablet by mouth at bedtime Trazodone 50 mg tablet Discontinued 50 mg PO AT BEDTIME 30 September 20, 2023 1:40pm October 09, 2023 [...] disturbance] 05-10-2023 Chronic Diabetes mellitus with complications (8 sources) Hypoglycemia due to type 2 diabetes mellitus; Translations: [Type 2 diabetes mellitus with hypoglycemia without coma] Onset: 11-28-2024 05-11-2025 Chronic Diabetes mellitus without complication (1 source) Type 2 diabetes mellitus without complications; Translations: [Type 2 diabetes mellitus without complications] Onset: 01-02-2025 Chronic Disorders of lipid metabolism (20 sources) Hyperlipidemia; Translations: [Hyperlipidemia, unspecified] 04-10-2018 Chronic E Codes: Fall (20 sources) Fall on same level from slipping, [...] Onset: 03-22-2018 03-22-2018 Chronic Malaise and fatigue (14 sources) Other fatigue; Translations: [Other malaise and fatigue] 08-07-2023 Episodic Mood disorders (2 sources) Depressive disorder; Translations: [Depression, unspecified depression type] Chronic Mood disorders (1 source) Mood disorders; Translations: [Depression, unspecified depression type] Onset: 09-02-2022 Nonspecific chest pain (1 source) Chest pain, unspecified; Translations: [Chest pain, unspecified] Onset: 04-21-2025 Episodic Open wounds of head; neck; and trunk (20 sources) Laceration of head; Translations: [Laceration without foreign body of unspecified part of head, initial encounter] Onset: 04-13-2025 12-13-2024 Episodic Other circulatory disease (1 source) Orthostatic hypotension; Translations: [Orthostatic hypotension] Episodic Other connective tissue disease (20 sources) Recurrent falls ; Translations: [Repeated falls] 04-12-2022 Episodic Other eye disorders (12 sources) Abducens nerve palsy; Translations: [Sixth [abducent] nerve palsy, right eye] 03-25-2024 Episodic Other eye disorders (1 source) Sixth [abducent] nerve palsy, right eye; Translations: [Sixth or abducens nerve palsy] 03-25-2024 Episodic Other fractures (11 sources) Closed fracture of two ribs; Translations: [Multiple fractures of ribs, left side, initial encounter for closed fracture] 10-20-2024 Episodic Other gastrointestinal disorders (20 sources) Dysphagia; Translations: [Dysphagia, unspecified] Episodic Other gastrointestinal disorders (2 sources) Oropharyngeal dysphagia; Translations: [Dysphagia, oropharyngeal phase] Episodic Other gastrointestinal disorders (1 source) Dysphagia, unspecified; Translations: [Dysphagia, unspecified] Onset: 05-19-2025 Episodic Other hereditary and degenerative nervous system conditions (2 sources) Essential tremor; Translations: [Essential tremor] Chronic Other injuries and conditions due to external causes (20 sources) Closed injury of head; Translations: [Unspecified injury of head, initial encounter] 02-11-2023 Episodic Other lower respiratory disease (11 sources) Cough; Translations: [Cough] 09-02-2024 Episodic Other [...] Obesity; Translations: [Obesity, unspecified] 04-11-2022 Chronic Other nutritional; endocrine; and metabolic disorders (4 sources) Body mass index 30+ - obesity; Translations: [Body mass index (BMI) 36.0-36.9, adult] 05-11-2025 Chronic Parkinson`s disease (20 sources) Parkinson's disease; Translations: [Parkinson's disease] Onset: 04-29-2022 Chronic Parkinson`s disease (16 sources) Parkinson`s disease; Translations: [Parkinson's disease without dyskinesia, with fluctuations] Onset: 05-15-2025 Residual codes; unclassified (20 sources) Obstructive sleep apnea syndrome; Translations: [Obstructive sleep apnea (adult) (pediatric)] 02-05-2022 Chronic Residual codes; unclassified (11 sources) Activity of daily living (ADL) alteration; Translations: [Other specified health status] Onset: 10-28-2021 10-28-2021 Episodic Residual codes; unclassified (20 sources) Insomnia; Translations: [Insomnia, unspecified] 02-05-2022 Episodic Residual codes; unclassified (4 sources) Altered mental status; Translations: [Altered mental status, unspecified] 05-11-2025 Episodic Skull and face fractures (4 sources) Open fracture of nasal bones; Translations: [Fracture of nasal bones, initial encounter for open fracture] Onset: 04-13-2025 04-13-2025 Episodic Spondylosis; intervertebral disc disorders; other back problems (20 sources) Low back pain; Translations: [Low back pain] 05-10-2023 Episodic Sprains and strains (11 sources) Strain of neck muscle; Translations: [Strain [...] Test Name Value Interpretation Reference Range Facility Folates, RBCon 05-28-2025 Fol.,Hemolysate 498.0 ng/mL Normal Not Estab. [facility] Comment on above: Order Comment: LUPE Deleon SEND RESULTS OF B12 AND FOLATES TO Performed By: #### L 501.9985, L500.2500, L501.4405, L3100.1725, L503.0106, L501.4100 #### [facility] [address] [place], [place], [id number] Folate, RBC 1087 ng/mL Normal >498 [facility] Comment on above: Order Comment: LUPE Deleon SEND RESULTS OF B12 AND FOLATES TO Result Comment: Perf ormed at: - [address] [id number] [employer] Operator: Vj Garcia PhD, Phone: [phone] Performed By: #### L [id number], L500.2500, L501.4405, L3100.1725, L503.0106, L501.4100 #### [facility] [address] [place], [place], [id number] Hematocrit (Bld) [Volume fraction] 45.8 % Normal 37.5-51.0 [facility] Comment on above: Order Comment: LUPE Deleon SEND RESULTS OF B12 AND FOLATES TO Performed By: #### L [id number], L500.2500, L501.4405, L3100.1725, L503.0106, L501.4100 #### [facility] [address] [place], [address] AST(SGOT)on 05-26-2025 AST [Catalytic activity/Vol] 14 U/L Normal <=37 [facility] Comment on above: Order Comment: LUPE Deleon SEND RESULTS OF B12 AND FOLATES TO Performed By: #### L [id number], L500.2500, L501.4405, L3100.1725, L503.0106, L501.4100 #### [facility] [address] [place], [address] Alanine Aminotransferas (SGP T)on 05-26-2025 ALT [Catalytic activity/Vol] 6 U/L Normal <=46 [facility] Comment on above: Order Comment: LUPE Deleon SEND RESULTS OF B12 AND FOLATES TO Performed By: #### L [id number], L500.2500, L501.4405, L3100.1725, L503.0106, L501.4100 #### [facility] [address] [place], [address] Anion gap in Serum or Plasma Ordered By: Natasha Gregory on 05-26-2025 Anion gap [Moles/Vol] 12 mmol/L - [facility] BUN/creatinine ratioOrdered By: Natasha Gregory on 05-26-2025 Urea nitrogen/Creatinine [Mass ratio] 19.8 mg/mg - [facility] Basic Metabolic Profile (BMP )on 05-26-2025 BUN/CRE 19.8 RATIO Normal 09-08 [facility] Comment on above: Order Comment: LUPE Deleon SEND RESULTS OF B12 AND FOLATES TO Performed By: #### L [id number], L500.2500, L501.4405, L3100.1725, L503.0106, L501.4100 #### [facility] [address] [place], [address] Calcium [Mass/Vol] 9.2 mg/dL Normal 7.6-11.0 [facility] Comment on above: Order Comment: LUPE Deleon SEND RESULTS OF B12 AND FOLATES TO Performed By: #### L [id number], L500.2500, L501.4405, L3100.1725, L503.0106, L501.4100 #### [facility] [address] [place], [address] Chloride [Moles/Vol] 104 mmol/L Normal 98-108 [facility] Comment on above: Order Comment: LUPE Deleon SEND RESULTS OF B12 AND FOLATES TO Performed By: #### L 501.9985, L500.2500, L501.4405, L3100.1725, L503.0106, L501.4100 #### [facility] [address] [place], [address] CO2 [Moles/Vol] 25.8 mmol/L Normal 21.0-32.0 [facility] Comment on above: Order Comment: LUPE Deleon SEND RESULTS OF B12 AND FOLATES TO Performed By: #### L 501.9985, L500.2500, L501.4405, L3100.1725, L503.0106, L501.4100 #### [facility] [address] [place], [address] Creatinine [Mass/Vol] 0.91 mg/dL Normal 0.70-1.20 [facility] Comment on above: Order Comment: [facility] B12 AND FOLATES TO Performed By: #### L 501.9985, L500.2500, L501.4405, L3100.1725, L503.0106, L501.4100 #### [facility] [address] [place], [address] GAP 12 Normal 5-15 [facility] Comment on above: Order Comment: LUPE SEND RESULTS OF B12 AND FOLATES TO Performed By: #### L 501.9985, L500.2500, L501.4405, L3100.1725, L503.0106, L501.4100 #### [facility] [address] [place], [address] GFR/1.73 sq M.predicted among non-blacks MDRD (S/P/Bld) [Vol rate/Area] 86 mL/min/{1.73_m2} Normal >60 [facility] Comment on above: Order Comment: [facility] SEND RESULTS OF B12 AND FOLATES TO Result Comment: mL/m in/1.73m2 CKD-EPI Creatinine Equation (2020) Performed By: #### L 501.9985, L500.2500, L501.4405, L3100.1725, L503.0106, L501.4100 #### [facility] [address] [place], [address] Glucose [Mass/Vol] 52 mg/dL Low 70-99 [facility] Comment on above: Order Comment: LUPE Deleon SEND RESULTS OF B12 AND FOLATES TO Performed By: #### L 501.9985, L500.2500, L501.4405, L3100.1725, L503.0106, L501.4100 #### [facility] [address] [place], [address] Potassium [Moles/Vol] 3.9 mmol/L Normal 3.3-5.1 [facility] Comment on above: Order Comment: LUPE Deleon SEND RESULTS OF B12 AND FOLATES TO Performed By: #### L 501.9985, L500.2500, L501.4405, L3100.1725, L503.0106, L501.4100 #### [facility] [address] [place], [address] Sodium [Moles/Vol] 142 mmol/L Normal 133-145 [facility] Comment on above: Order Comment: LUPE SEND RESULTS OF B12 AND FOLATES TO Performed By: #### L 501.9985, L500.2500, L501.4405, L3100.1725, L503.0106, L501.4100 #### [facility] [address] [place], [address] Urea nitrogen [Mass/Vol] 18 mg/dL Normal 4-19 [facility] Comment on above: Order Comment: LUPE SEND RESULTS OF B12 AND FOLATES TO Performed By: #### L 501.9985, L500.2500, L501.4405, L3100.1725, L503.0106, L501.4100 #### [facility] [address] [place], [address] Carbon dioxide, total [Moles /volume] in Central venous bloodOrdered By: Natasha Gregory on 05-26-2025 CO2 [Moles/Vol] 25.8 mmol/L 21.0-32.0 [facility] Chloride assayOrdered By: Terri Gregory on 05-26-2025 Chloride [Moles/Vol] 104 mmol/L 98-108 [facility] Erythrocyte folate measureme nt with hematocritOrdered By: Natasha Gregory on 05-26-2025 Hematocrit (Bld) [Volume fraction] 45.8 % 37.5-51.0 [facility] Glomerular filtration rate ( GFR) estimation/1.73 sq m using serum, plasma, or whole bOrdered By: Natasha Gregory on 05-26-2025 GFR/1.73 sq M.predicted among non-blacks MDRD (S/P/Bld) [Vol rate/Area] 86 mL/min/{1.73_m2} >60 [facility] Comment on above: mL/min/1.73m2 CKD-EP I Creatinine Equation (2020) Hemoglobin A1con 05-26-2025 HbA1c (Bld) [Mass fraction] 6.6 % High <=5.6 [facility] Comment on above: Order Comment: LUPE Deleon SEND RESULTS OF B12 AND FOLATES TO Result Comment: Norm al < 5.7 % Prediabetic 5.7 - 6.4 % Diabetic >or= 6.5 % Please note range changes. Performed By: #### L 501.9985, L500.2500, L501.4405, L3100.1725, L503.0106, L501.4100 #### [facility] [address] [place], [address] Hemoglobin A1c percentageOrd ered By: Natasha Gregory on 05-26-2025 HbA1c (Bld) [Mass fraction] 6.6 % High <5.7 [facility] Comment on above: Normal < 5.7 % Predi abetic 5.7 - 6.4 % Diabetic >or= 6.5 % Please note range changes. Laboratory - Chemistry and C hemistry - challengeOrdered By: Natasha Gregory on 05-26-2025 AST [Catalytic activity/Vol] 14 U/L <38 [facility] Potassium measurement (mass/ volume)Ordered By: Natasha Gregory on 05-26-2025 Potassium (Unsp spec) [Mass/Vol] 3.9 mmol/L 3.3-5.1 [facility] Serum creatinine measurement (mass/volume)Ordered By: Natasha Gregory on 05-26-2025 Creatinine [Mass/Vol] 0.91 mg/dL 0.70-1.20 [facility] Serum glucose measurement (m ass/volume)Ordered By: Natasha Gregory on 05-26-2025 Glucose [Mass/Vol] 52 mg/dL Low 70-99 [facility] Serum or plasma alanine max otransferase (ALT) measurementOrdered By: Natasha Gregory on 05-26-2025 ALT [Catalytic activity/Vol] 6 U/L <47 [facility] Serum or plasma calcium walt urement (mass/volume)Ordered By: Natasha Gregory on 05-26-2025 Calcium [Mass/Vol] 9.2 mg/dL 7.6-11.0 [facility] Serum or plasma urea nitroge n measurement (mass/volume)Ordered By: Natasha Gregory on 05-26-2025 Urea nitrogen [Mass/Vol] 18 mg/dL 4-19 [facility] Sodium levelOrdered By: Josefina Gregory on 05-26-2025 Sodium [Moles/Vol] 142 mmol/L 133-145 [facility] Vitamin B12on 05-26-2025 Cobalamin (Vitamin B12) [Mass/Vol] 287 pg/mL Normal 180-914 [facility] Comment on above: Order Comment: LUPE Deleon SEND RESULTS OF B12 AND FOLATES TO Performed By: #### L 501.9985, L500.2500, L501.4405, L3100.1725, L503.0106, L501.4100 #### [facility] [address] [place], [place], [address] Vitamin B12 ser/plasOrdered By: Natasha Gregory on 05-26-2025 Cobalamin (Vitamin B12) [Mass/Vol] 287 pg/mL 180-914 [facility] D/C Summary- SPon 05-19-2025 D/C Summary- SP [facility] Speech Pathology [facility] [place] [address] / REHABILITATION SERVICES DISCHARGE SUMMARY MR#: [id number] Acct: [id number] Name: KEVIN GRIFFITH Rep #: [id number] : 1945 79 From: Ayden Linares M.A., [facility] Referring Dr.: Dr. Vick Santo MD Status: REG RCR Insurance: MEDICARE PART A B [employer] Discharge Summary Discharged: Discharge: Kevin Griffith is discharged from [facility] as of 05/14/25 as he requested discharge. He was evaluated on 02/25/25 for dysphagia and dysphonia due to Parkinson???s disease. He completed a total of 10 visits with limited progress made on increasing volume. He also was given home exercise program for volume as well as oropharyngeal exercises which he reported he often forgot. He moved into assisted living recently due to high level of falls at home. He completed an MBSS on 05/09/25 with the following recommendations: Diet: Easy to Chew Textures (Moisten Dry Textures) and Thin Liquids Comment: STOP meal if increased s/s of reflux, sensation of retention, or regurgitation despite use of strategies listed below and resume meal at a later time. Compensatory Strategies: Small Bites, Small Sips (Hard swallows, 10cc bolus control cup), Slow Rate, Alternate bites/solids and sips/liquids, Sitting upright and Remain sitting upright for 30 minutes after PO intake Supervision: Assist as needed ( informed the [facility] that supervision at each meal is not possible, [facility] recommends supervision as much as able to cue use of safe swallow strategies). On his last visit he requested to discontinue therapy at [facility] as he stated he has too many appointments and will consider getting therapy at his assisted living. Please see daily notes and reports for complete details. Thank you for allowing me to participate in the care of this patient. 05/19/25 4015 CC: Dr. Ron Cooley MD; Dr. Vick Santo MD JLM Signed Normal [facility] Bedside Glucoseon 05-11-2025 F[place]ERSTICK GLU 97 mg/dL Normal 74-106 [facility] Comment on above: Result Comment: GARY REYES OF PATIENT CARE PER NURSING PROTOCOL Performed By: #### L 501.9950, L500.2500, L501.4405, L3100.1725, L503.0106, L501.4100 #### [facility] [address] [place], [address] Emergency Department Summary on 05-11-2025 Emergency Department Summary [facility] Medical Records Department [address] [place] [address] Emergency Department Summary 05/11/25 MR#: [id number] Acct: [id number] Name: KEVIN GRIFFITH Rep #: [id number] : 1945 79 From: Dano Minor MD PCP: Dr. Ron Cooley MD Status:REG ER Location: ED HPI History of Present Illness Chief Complaint: Hypoglycemia Detail of Chief Complaint: Hypoglycemia with altered mental status Informant: patient, EMS and SNF Onset/Context/Timing Onset: Today (Last episode 3 weeks ago) Context: Sudden Onset Timing: Intermittent Quality: Altered mental status Location: Nursing facility Current Severity: Gone Maximum Severity: Moderate Worsened by: Change in activity Relieved by: Eating Associated Symptoms Associated Symptoms: None Narrative Narrative: Patient is an 79-year-old male with type 2 diabetes on insulin. Instructions did not accompany him. He is on insulin aspartate with complex instruction and insulin glargine. He does not know the dosage. He presently is alert oriented. His blood sugar is 97. Prior similar symptoms: Yes (3 weeks ago) Recent Illness/Hospitalization : No PFSH PFS Medical History Parkinson's disease Right [...] metoclopramide (From Reglan) Allergy Severe HYPER Verified 05/11/25 17:48 Family History Father Leukemia Surgical History History of total left knee replacement (TKR) History of left tennis elbow Hx of spinal fusion History of skin cancer Social History household members: spouse housing: house Smoking Status: Former smoker alcohol intake: never substance use type: does not use ROS ROS ED Constitutional Constitutional ED: Denies chills, fever(s), subjective or sweats Cardiovascular Cardiovascular: Denies chest pain or palpitations Respiratory/Chest Respiratory/Chest: Denies cough, dyspnea or dyspnea on exertion Gastrointestinal Gastrointestinal: Denies nausea or vomiting Genitourinary Genitourinary ED: Denies dysuria or urinary frequency Musculoskeletal Musculoskeletal: Denies arthralgias or myalgias Neurologic Neurologic: Denies headache(s), paresthesias or weakness Hematologic/Lymphatic Hematologic/Lymphatic: Reports systems reviewed and no addt'l complaints, except as documented EXAM Physical Exam Const Vital Signs: 05/11/25 17:49 05/11/25 17:51 Temperature 97.7 F L Temperature Source Oral Pulse Rate 77 Respiratory Rate 16 Respiratory Effort Normal Respiratory Pattern Normal Blood Pressure 112/99 H Blood Pressure Mean 103 Pulse Ox 97 Oxygen Delivery Method Room Air Positive well nourished and well developed Constitutional Narrative: BMI (more content not included)... Normal [facility] deOrdered By: Dano Minor on 05-11-2025 Glucose [Mass/Vol] 97 mg/dL 74-106 [facility] Comment on above: MANAGEMENT OF PATIEN T CARE PER NURSING PROTOCOL Modified Barium Swallow Stud yon 05-09-2025 Modified Barium Swallow Study [facility] Speech Pathology [address] [place] [address] Modified Barium Swallow Study MR#: [id number] Acct: [id number] Name: KEVIN GRIFFITH Rep #: [id number] : 1945 79 From: Heather Titus M.A., [facility] Modified Barium Swallow Patient Information Study Date: 05/09/25 Study Time: 13:05 Direct Billable Minutes: 120 Total Minutes procedure reportin Diagnosis: Dysphagia R13.10 Referring Physician: Vick Santo Reason for Referral: The patient presents for repeat MBSS recommended by his OP [facility]. Patient and report coughing w/ food and [...] cup: Result: 2= enter airway/above vocal folds/ejected [place] Thick Liquid via large single sip: cup: [...] small single (more content not included)... Normal [facility] Microalb:Creat Ratio,Random URon 05-08-2025 MALB:CREAT 8.8 mg/g CRE [facility] Comment on above: Result Comment: AMENDED REPORT 05/08/25 0851 MALB:CREAT previously reported as: 87.7 mg/g CRE Performed By: #### L 501.4100, L500.2500, L501.4405, L501.9985, L502.0250 ####[facility] [address] [place], [address] CT MAXILLOFACIAL WO IV CONTR Princess 04-13-2025 CT MAXILLOFACIAL WO IV CONTRAST Patient Name: KEVIN GRIFFITH : 1945 [id number] Exam Date/Time: 04/13/2025 21:07 Procedure: CT MAXILLOFACIAL [...] lac to forehead above left eye Normal [facility] 1. Bilateral nasal bone fractures. 2. Left frontal scalp laceration with contusion. Report Dictated on Electronically Signed By: Maine Briones MD Electronically Signed Date/Time: 04/13/2025 9:21 PM EDT [facility] Patient Name: KEVIN GRIFFITH : 1945 Exam [...] airway is patent. The epiglottis is normal. [facility] Maine Briones MD - 04/13/2025 Patient Name: KEVIN GRIFFITH : 1945 Exam [...] Electronically Signed Date/Time: 04/13/2025 9:21 PM EDT [facility] Radiology Study observation (narrative) [facility] CT Maxillofacial region WO c ontrastOrdered By: Maine Briones on 04-13-2025 [facility] [employer] Work Phone: ED Nursing Noteon 04-13-2025 ED Nursing Note Pt presents to ED vi a EMS from restaurant for c/o left frontal head lac after losing footing and falling onto face on the ground. Pt has hx of parkinson's. Abrasion noted to forehead, small lac noted to bridge of nose as well as a large lac to forehead above left eye Normal [facility] ED Provider Noteon ED Provider Note [...] records from: PDMP demonstrating 1 prescription, for [place] CT demonstrating bilateral nasal bone fractures. The [...] initial encounter Medications lidocaine-EPINEPHrine (Xylocaine W/EPI) 1 %-1:395108 injection 10 mL (has no administration in [...] Consent obtained: Verbal Consent given by: Patient [place] protocol: Imaging studies available: yes Patient identi (more content not included)... [facility] No Panel Informationon 04-13 Chetan Powell MD 04/13/2025 10:22 PM Laceration Repair Performed by: Chetan Powell MD Authorized by: Chetan Powell MD Consent: Consent obtained: Verbal Consent given by: Patient [place] protocol: Imaging studies available: yes Patient identity [...] Dressing: Open (no dressing) Procedure completion: Tolerated [facility] Brain/Head without Contrasto n 04-09-2025 Brain/Head without Contrast [facility] Imaging Services [address] [place], [place] [address] Brain/Head without Contrast MR#: [id number] Acct: [id number] Name: KEVIN GRIFFITH Rep #: [id number] : 1945 M 79 From: Donnell Corey MD PCP: Dr. Ron Cooley MD Status: REG ER Study: Brain/Head without Contrast Date of Exam: 03/21 12/14 Exam# [id number] Ordering Dr: Surya Dumont MD EXAM: CT [...] change from the prior exam. Reading Location: [facility] CC: Dr. Surya Dumont MD; Dr. Ron Cooley MD [employer] Agent: Signed Normal [facility] Emergency Department Summary on 04-09-2025 Emergency Department Summary [facility] Medical Records Department [address] [place] [address] Emergency Department Summary 04/09/25 MR#: [id number] Acct: [id number] Name: KEVIN GRIFFITH Rep #: [id number] : 1945 79 From: Surya Dumont MD [...] take blood thinners. Tetanus Immunization: <5 years [facility] Medical History Parkinson's disease Right bundle branch [...] Medical decis (more content not included)... Normal [facility] Spine Cervical without Contr ason 04-09-2025 Spine Cervical without Contras [facility] Imaging Services [address] [place], [place] [id number] Spine Cervical without Contras MR#: [id number] Acct: [id number] Name: KEVIN GRIFFITH Rep #: [id number] : 1945 M 79 From: Donnell Corey MD PCP: Dr. Ron Cooley MD Status: REG ER Study: Spine Cervical without Contras Date of Exam: 0 04/09/25 Exam# [id number] Ordering Dr: Surya Dumont MD EXAM: CT [...] the cervical spine as described. Reading Location: [facility] CC: Dr. Surya Dumont MD; Dr. Ron Cooley MD [employer] Agent: Signed Normal [facility] Anion gap in Serum or Plasma Ordered By: Ron Cooley on 04-03-2025 Anion gap [Moles/Vol] 11 mmol/L 04-03 [facility] BUN/creatinine ratioOrdered By: Ron Cooley on 04-03-2025 Urea nitrogen/Creatinine [Mass ratio] 20.8 mg/mg High 10- [facility] Bilirubin, totalOrdered By: Ron Cooley on 04-03-2025 Bilirubin [Mass/Vol] 0.52 mg/dL 0.00-1.30 [facility] Calculated very low density lipoprotein (VLDL) cholesterol measurementOrdered By: Ron Cooley on 04-03-2025 Calculated very low density lipoprotein (VLDL) cholesterol measurement 27 mg/dL 5-40 [facility] Carbon dioxide, total [Moles /volume] in Central venous bloodOrdered By: Ron Cooley on 04-03-2025 CO2 [Moles/Vol] 26.4 mmol/L 21.0-32.0 [facility] Chloride assayOrdered By: Rimma Cooley on 04-03-2025 Chloride [Moles/Vol] 104 mmol/L 98-108 [facility] Comprehensive Metabolic Prof ilon 04-03-2025 Albumin [Mass/Vol] 3.9 g/dL Normal 3.4-4.8 [facility] Comment on above: Order Comment: Order Date: 03/13/25 Order Info: [id number] - CMP Order Info: [id number] - LIPID Performed By: #### L 500.4050 #### [facility] [address] [place], [place] [address]all [facility] [place], [address] Albumin/Globulin [Mass ratio] 1.4 {ratio} Normal 0.9-2.4 [facility] Comment on above: Order Comment: Order Date: 03/13/25 Order Info: [id number] - CMP Order Info: [id number] - LIPID Performed By: #### L 500.4050 #### [facility] [address] [place], [address] ALK PHOS 79 U/L Normal 40-129 [facility] Comment on above: Order Comment: Order Date: 03/13/25 Order Info: [id number] - CMP Order Info: [id number] - LIPID Performed By: #### L 500.4050 #### [facility] [address] [place], [address] ALT [Catalytic activity/Vol] 5 U/L Normal <=46 [facility] Comment on above: Order Comment: Order Date: 03/13/25 Order Info: [id number] - CMP Order Info: [id number] - LIPID Performed By: #### L 500.4050 #### [facility] [address] [place], [address] AST [Catalytic activity/Vol] 17 U/L Normal <=37 [facility] Comment on above: Order Comment: Order Date: 03/13/25 Order Info: [id number] - CMP Order Info: [id number] - LIPID Performed By: #### L 500.4050 #### [facility] [address] [place], [address] Bilirubin [Mass/Vol] 0.52 mg/dL Normal 0.00-1.30 [facility] Comment on above: Order Comment: Order Date: 03/13/25 Order Info: [id number] - CMP Order Info: [id number] - LIPID Performed By: #### L 500.4050 #### [facility] [address] [place], [address] BUN/CRE 20.8 RATIO High 10-20 [facility] Comment on above: Order Comment: Order Date: 03/13/25 Order Info: [id number] - CMP Order Info: [id number] - LIPID Performed By: #### L 500.4050 #### [facility] [address] [place], [address] Calcium [Mass/Vol] 9.2 mg/dL Normal 7.6-11.0 [facility] Comment on above: Order Comment: Order Date: 03/13/25 Order Info: [id number] - CMP Order Info: [id number] - LIPID Performed By: #### L 500.4050 #### [facility] [address] [place], [address] Chloride [Moles/Vol] 104 mmol/L Normal 98-108 [facility] Comment on above: Order Comment: Order Date: 03/13/25 Order Info: [id number] - CMP Order Info: [id number] - LIPID Performed By: #### L 500.4050 #### [facility] [address] [place], [address] CO2 [Moles/Vol] 26.4 mmol/L Normal 21.0-32.0 [facility] Comment on above: Order Comment: Order Date: 03/13/25 Order Info: [id number] - CMP Order Info: [id number] - LIPID Performed By: #### L 500.4050 #### [facility] [address] [place], [address] Creatinine [Mass/Vol] 0.78 mg/dL Normal 0.70-1.20 [facility] Comment on above: Order Comment: Order Date: 03/13/25 Order Info: [id number] - CMP Order Info: [id number] - LIPID Performed By: #### L 500.4050 #### [facility] [address] [place], [address] GAP 11 Normal 5-15 [facility] Comment on above: Order Comment: Order Date: 03/13/25 Order Info: [id number] - CMP Order Info: [id number] - LIPID Performed By: #### L 500.4050 #### [facility] [address] [place], [place], [address] GFR/1.73 sq M.predicted among non-blacks MDRD (S/P/Bld) [Vol rate/Area] 90 mL/min/{1.73_m2} Normal >60 [facility] Comment on above: Order Comment: Order Date: 03/13/25 Order Info: [id number] - CMP Order Info: [id number] - LIPID Result Comment: mL/m in/1.73m2 CKD-EPI Creatinine Equation (2020) Performed By: #### L 500.4050 #### [facility] [address] [place], [address] Globulin (S) [Mass/Vol] 2.8 g/dL Normal 2.2-4.2 [facility] Comment on above: Order Comment: Order Date: 03/13/25 Order Info: [id number] - CMP Order Info: [id number] - LIPID Performed By: #### L 500.4050 #### [facility] [address] [place], [address] Glucose [Mass/Vol] 109 mg/dL High 70-99 [facility] Comment on above: Order Comment: Order Date: 03/13/25 Order Info: [id number] - CMP Order Info: [id number] - LIPID Performed By: #### L 500.4050 #### [facility] [address] [place], [address] Potassium [Moles/Vol] 3.9 mmol/L Normal 3.3-5.1 [facility] Comment on above: Order Comment: Order Date: 03/13/25 Order Info: 0786-1 - CMP Order Info: [id number] - LIPID Performed By: #### L 500.4050 #### [facility] [address] [place], [address] Sodium [Moles/Vol] 142 mmol/L Normal 133-145 [facility] Comment on above: Order Comment: Order Date: 03/13/25 Order Info: [id number] - CMP Order Info: [id number] - LIPID Performed By: #### L 500.4050 #### [facility] [address] [place], [place], [address] T PROT 6.6 g/dL Normal 5.9-8.4 [facility] Comment on above: Order Comment: Order Date: 03/13/25 Order Info: [id number] - CMP Order Info: [id number] - LIPID Performed By: #### L 500.4050 #### [facility] [address] [place], [place], [address] Urea nitrogen [Mass/Vol] 16 mg/dL Normal 4-19 [facility] Comment on above: Order Comment: Order Date: 03/13/25 Order Info: [id number] - CMP Order Info: [id number] - LIPID Performed By: #### L 500.4050 #### [facility] [address] [place], [place], [address] Glomerular filtration rate ( GFR) estimation/1.73 sq m using serum, plasma, or whole bOrdered By: Ron Cooley on 04-03-2025 GFR/1.73 sq M.predicted among non-blacks MDRD (S/P/Bld) [Vol rate/Area] 90 mL/min/{1.73_m2} >60 [facility] Comment on above: mL/min/1.73m2 CKD-EP I Creatinine Equation (2020) LDL calc ser/plasOrdered By: Ron Cooley on 04-03-2025 Cholesterol in LDL [Mass/Vol] 47 mg/dL [facility] Comment on above: Jkttqmojns=589-719 m g/dL & Higher Wgqx=286 mg/dL or greater Laboratory - Chemistry and C hemistry - challengeOrdered By: Ron Cooley on 04-03-2025 AST [Catalytic activity/Vol] 17 U/L <38 [facility] Lipid Profileon 04-03-2025 CHOL:HDL 2.63 Normal [facility] Comment on above: Order Comment: Order Date: 03/13/25Order Info: 07 - CMPOrder Info: [id number] - LIPID Performed By: #### L 500.4100 ####[facility] [address] [place], [place], [phone](022) Cholesterol [Mass/Vol] 120 mg/dL Normal <=200 [facility] Comment on above: Order Comment: Order Date: 03/13/25Order Info: [id number] - CMPOrder Info: [id number] - LIPID Result Comment: Chol esterol level, Desirable <200 mg/dL Borderline high cholesterol 200-239 mg/dL High cholesterol >=240 mg/dL Recommendations of the NCEP Adult Treatment Panel for the following risk-cutoff thresholds for the [place] population. Performed By: #### L 500.4100 ####[facility] [address] [place], [place], [phone](824) Cholesterol in HDL [Mass/Vol] 46 mg/dL Normal [facility] Comment on above: Order Comment: Order Date: 03/13/25Order Info: [id number] - CMPOrder Info: [id number] - LIPID Result Comment: Makayla onal Cholesterol Education Program (NCEP) guidelines: <40 mg/dL: Low HDL-cholesterol (major risk factor for CHD) >= 60 mg/dL: High HDL-cholesterol (negative risk factor for CHD) HDL-cholesterol is affected by a number of factors, e.g. smoking, exercise, hormones, sex and age. Performed By: #### L 500.4100 ####[facility] [address] [place], [place], [address](059) Cholesterol in LDL [Mass/Vol] 47 mg/dL Normal [facility] Comment on above: Order Comment: Order Date: 03/13/25Order Info: 07 - CMPOrder Info: [id number] - LIPID Result Comment: Bord lukmln=620-790 mg/dL Higher Nbep=451 mg/dL or greater Performed By: #### L 500.4100 ####[facility] [address] [place], [address] Cholesterol in VLDL [Mass/Vol] 27 mg/dL Normal 5-40 [facility] Comment on above: Order Comment: Order Date: 03/13/25Order Info: [id number] - CMPOrder Info: [id number] - LIPID Performed By: #### L 500.4100 ####[facility] [address] [place], [place], [address] Triglyceride [Mass/Vol] 135 mg/dL Normal [facility] Comment on above: Order Comment: Order Date: 03/13/25Order Info: [id number] - CMPOrder Info: [id number] - LIPID Result Comment: The drugs N-Acetylcysteine and Metamizole may falsely depress this assay. Normal range: <150 mg/dL Borderline High: 150-199 mg/dL High: 200-499 mg/dL Very High: >500 mg/dL Performed By: #### L 500.4100 ####[facility] [address] [place], [place], [address] Potassium measurement (mass/ volume)Ordered By: Ron Cooley on 04-03-2025 Potassium (Unsp spec) [Mass/Vol] 3.9 mmol/L 3.3-5.1 [facility] Screening total cholesterol/ high density lipoprotein (HDL) cholesterol ratioOrdered By: Ron Cooley on 04-03-2025 Cholesterol.total/Cholest gris in HDL [Mass ratio] 2.63 {ratio} [facility] Serum creatinine measurement (mass/volume)Ordered By: Ron Cooley on 04-03-2025 Creatinine [Mass/Vol] 0.78 mg/dL 0.70-1.20 [facility] Serum globulin measurementOr dered By: Ron Cooley on 04-03-2025 Globulin (S) [Mass/Vol] 2.8 g/dL 2.2-4.2 [facility] Serum glucose measurement (m ass/volume)Ordered By: Ron Cooley on 04-03-2025 Glucose [Mass/Vol] 109 mg/dL High 70-99 [facility] Serum or plasma alanine max otransferase (ALT) measurementOrdered By: Ron Cooley on 04-03-2025 ALT [Catalytic activity/Vol] 5 U/L <47 [facility] Serum or plasma albumin walt urement (mass/volume)Ordered By: Ron Cooley on 04-03-2025 Albumin [Mass/Vol] 3.9 g/dL 3.4-4.8 [facility] Serum or plasma albumin/glob ulin mass ratioOrdered By: Ron Cooley on 04-03-2025 Albumin/Globulin [Mass ratio] 1.4 {ratio} 0.9-2.4 [facility] Serum or plasma alkaline sarah sphatase measurementOrdered By: Ron Cooley on 04-03-2025 ALP [Catalytic activity/Vol] 79 U/L 40-129 [facility] Serum or plasma calcium walt urement (mass/volume)Ordered By: Ron Cooley on 04-03-2025 Calcium [Mass/Vol] 9.2 mg/dL 7.6-11.0 [facility] Serum or plasma cholesterol in HDL measurement (mass/volume)Ordered By: Ron Cooley on 04-03-2025 Cholesterol in HDL [Mass/Vol] 46 mg/dL >40 [facility] Comment on above: National Cholesterol Education Program (NCEP) guidelines:<40 mg/dL: Low HDL-cholesterol (major risk factor for CHD)>= 60 mg/dL: High HDL-cholesterol (negative risk factor for CHD)HDL-cholesterol is affected by a number of factors, e.g. smoking, exercise, hormones, sex and age. Serum or plasma cholesterol measurement (mass/volume)Ordered By: Ron Cooley on 04-03-2025 Cholesterol [Mass/Vol] 120 mg/dL <201 [facility] Comment on above: Cholesterol level, D esirable <200 mg/dLBorderline high cholesterol 200-239 mg/dLHigh cholesterol >=240 mg/dLRecommendations of the NCEP Adult Treatment Panel for the following risk-cutoff thresholds for the [place] population. Serum or plasma urea nitroge n measurement (mass/volume)Ordered By: Ron Cooley on 04-03-2025 Urea nitrogen [Mass/Vol] 16 mg/dL 4-19 [facility] Sodium levelOrdered By: Ron Cooley on 04-03-2025 Sodium [Moles/Vol] 142 mmol/L 133-145 [facility] Total proteinOrdered By: Kwabena Cooley on 04-03-2025 Protein [Mass/Vol] 6.6 g/dL 5.9-8.4 [facility] Triglycerides measurementOrd ered By: Ron Cooley on 04-03-2025 Triglyceride [Mass/Vol] 135 mg/dL <199 [facility] Comment on above: The drugs N-Acetylcy steine and Metamizole may falsely depress this assay. Normal range: <150 mg/dLBorderline High: 150-199 mg/dLHigh: 200-499 mg/dLVery High: >500 mg/dL Vitamin D,25 Hydroxyon 04-03 Vitamin D 25-OH 39.2 ng/mL Normal 30-100 [facility] Comment on above: Order Comment: LUPE Deleon SEND RESULTS OF B12 AND FOLATES TO Result Comment: Lisa min D Status Deficiency: <20 ng/mL (50nmol/L) Insufficiency: 20-30 ng/mL (50-75 nmol/L) Sufficiency: 30-100 ng/mL (75-250 nmol/L) Toxicity: >100 ng/mL (>250 nmol/L) Performed By: #### L 501.9985, L500.2500, L501.4405, L3100.1725, L503.0106, L501.4100 #### [facility] Laboratory [address] [place], [address] Chest without Contraston Chest without Contrast [facility] Imaging Services [address] [place] [address] Chest without Contrast MR#: [id number] Acct: [id number] Name: KEVIN GRIFFITH Rep #: [id number] : 1945 M 79 From: Donnell Corey MD PCP: Dr. Ron Cooley MD Status: DEP CLI Study: Chest without Contrast Date of Exam: 03/24/25 Exam# [id number] Ordering Dr: Jose Perez MD EXAM: CT [...] scarring, greater on the left. Reading Location: [facility] CC: Dr. Ron Cooley MD; Dr. Jose Perez MD [employer] Agent: Signed Normal [facility] Neurology Visit Reporton Neurology Visit Report [facility] [address], [address] [place] [address] OFFICE VISIT Date of Service: 03/20/25 MR#: [id number] Acct: [id number] Name: KEVIN GRIFFITH Rep #: [id number] : 1945 Provider: Dr. Vick beltran MD Age/Sex: 79/M [place] [facility] Status: Signed with Addenda ADDENDUM by Dr. 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 Normal [facility] Absolute lymphocyte countOrd ered By: Jose Perez on 04-14-2025 Lymphocytes Auto (Unsp spec) [#/Vol] 4.51 10*3/uL 0.83-4.51 [facility] Absolute neutrophil countOrd ered By: Jose Perez on 03-03-2025 Neutrophils (Bld) [#/Vol] 5.4 10*3/uL 2.0-7.7 [facility] Automated lymphocyte count a s percentage of total leukocytesOrdered By: Jose Perez on 03-03-2025 Lymphocytes/100 WBC Auto (Unsp spec) 39.8 % 19-41 [facility] Basophil percentageOrdered B y: Jose Perez on 03-03-2025 Basophils/100 WBC (Bld) 0.7 % 0-1 [facility] CBC W/Diff, Automatedon 02-18 Absolute Lymph 4.51 X10 3/uL Normal 0.83-4.51 [facility] Comment on above: Performed By: #### L 100.0100 ####[facility] [address] [facility] [address] Absolute Neut 5.4 X10 3/uL Normal 2.0-7.7 [facility] Comment on above: Performed By: #### L 100.0100 ####[facility] [address] [facility] [address] Basophils/100 WBC (Bld) 0.7 % Normal 0-1 [facility] Comment on above: Performed By: #### L 100.0100 ####[facility] [address] [place], [address] Eosinophils/100 WBC (Bld) 1.2 % Normal 0-5 [facility] Comment on above: Performed By: #### L 100.0100 ####[facility] [address] [facility] [address] Erythrocyte distribution width (RBC) [Ratio] 13.6 % Normal 11.6-14.6 [facility] Comment on above: Performed By: #### L 100.0100 ####[facility] [address] [place], [address] Hematocrit (Bld) [Volume fraction] 44.2 % Normal 40-54 [facility] Comment on above: Performed By: #### L 100.0100 ####[facility] [address] [place], [address] Hemoglobin (Bld) [Mass/Vol] 14.5 g/dL Normal 13.0-16.5 [facility] Comment on above: Performed By: #### L 100.0100 ####[facility] [address] [place], [address] IG% 0.500 Normal 0.0-0.9 [facility] Comment on above: Result Comment: IG% - Immature Granulocytes (promyelocytes, myelocytes and metamyelocytes) > 1% indicates that a LEFT SHIFT is Present. Performed By: #### L 100.0100 ####[facility] [address] [place], [address] Lymphocytes/100 WBC (Bld) 39.8 % Normal 19-41 [facility] Comment on above: Performed By: #### L 100.0100 ####[facility] [address] [place], [address] MCH (RBC) [Entitic mass] 30.3 pg Normal 27.0-32.0 [facility] Comment on above: Performed By: #### L 100.0100 ####[facility] [address] [place], [address] MCHC (RBC) [Mass/Vol] 32.8 g/dL Normal 32-36 [facility] Comment on above: Performed By: #### L 100.0100 ####[facility] [address] [place], [address] MCV (RBC) [Entitic vol] 92.3 fL Normal 80-94 [facility] Comment on above: Performed By: #### L 100.0100 ####[facility] [address] [place], [address] Monocytes/100 WBC (Bld) 9.8 % Normal 0-10 [facility] Comment on above: Performed By: #### L 100.0100 ####[facility] [address] [place], [address] Neutrophils/100 WBC (Bld) 48.0 % Normal 47-70 [facility] Comment on above: Performed By: #### L 100.0100 ####[facility] [address] [place], [address] Nucleated RBC (Bld) [#/Vol] 0 10*3/uL Normal 0-5 [facility] Comment on above: Performed By: #### L 100.0100 ####[facility] [address] [place], [address] Platelet mean volume (Bld) [Entitic vol] 10.5 fL Normal 6.2-12.0 [facility] Comment on above: Performed By: #### L 100.0100 ####[facility] [address] [place], [address] Platelets (Bld) [#/Vol] 339 10*3/uL Normal 150-450 [facility] Comment on above: Performed By: #### L 100.0100 ####[facility] [address] [place], [address] RBC (Bld) [#/Vol] 4.79 10*6/uL Normal 4.6-6.2 [facility] Comment on above: Performed By: #### L 100.0100 ####[facility] [address] [place], [address] RDW SD 46.1 fl High 35.1-43.9 [facility] Comment on above: Performed By: #### L 100.0100 ####[facility] [address] [place], [place], [address] WBC (Bld) [#/Vol] 11.3 10*3/uL High 4.4-11.0 [facility] Comment on above: Performed By: #### L 100.0100 ####[facility] [address] [place], [place], [address] Eosinophil percentageOrdered By: Jose Perez on 03-03-2025 Eosinophils/100 WBC (Bld) 1.2 % 0-5 [facility] Erythrocyte distribution wid th (RBC) [Ratio]Ordered By: Jose Perez on 03-03-2025 Erythrocyte distribution width (RBC) [Entitic vol] 46.1 fL High 35.1-43.9 [facility] Erythrocyte distribution wid th ratioOrdered By: [place] Ana on 03-03-2025 Erythrocyte distribution width (RBC) [Ratio] 13.6 % 11.6-14.6 [facility] Erythrocyte distribution wid th standard deviationOrdered By: [place] Ana on 03-03-2025 Erythrocyte distribution width (RBC) [Ratio] 46.1 fl High 35.1-43.9 [facility] Hematocrit Auto (Bld) [Volum e fraction]Ordered By: Jose Perez on 03-03-2025 Hematocrit (Bld) [Volume fraction] 44.2 % 40-54 [facility] Hemoglobin measurementOrdere d By: Jose Perez on 03-03-2025 Hemoglobin (Bld) [Mass/Vol] 14.5 g/dL 13.0-16.5 [facility] Immature granulocytes/100 WB C Auto (Bld)Ordered By: Jose Perez on 03-03-2025 Immature granulocytes/100 WBC (Bld) 0.500 % 0.0-0.9 [facility] Comment on above: IG% - Immature Granu locytes (promyelocytes, myelocytes and metamyelocytes) > 1% indicates that a LEFT SHIFT is Present. Lymphocytes Auto (Unsp spec) [#/Vol]Ordered By: Jose Perez on 03-03-2025 Lymphocytes (Bld) [#/Vol] 4.51 10*3/uL 0.83-4.5 1 [facility] Lymphocytes/100 WBC Auto (Un sp spec)Ordered By: Jose Perez on 03-03-2025 Lymphocytes/100 WBC (Bld) 39.8 % 19-41 [facility] MCV (mean corpuscular volume ) determinationOrdered By: Jose Perez on 03-03-2025 MCV (RBC) [Entitic vol] 92.3 fL 80-94 [facility] Mean corpuscular hemoglobin (MCH) determinationOrdered By: Jose Perez on 03-03-2025 MCH (RBC) [Entitic mass] 30.3 pg 27.0-32.0 [facility] Mean corpuscular hemoglobin concentration (MCHC) determinationOrdered By: Jsoe Perez on 03-03-2025 MCHC (RBC) [Mass/Vol] 32.8 g/dL 32-36 [facility] Mean platelet volume determi nationOrdered By: Jose Perez on 03-03-2025 Platelet mean volume (Bld) [Entitic vol] 10.5 fL 6.2-12.0 [facility] Monocyte percentageOrdered B y: Jose Perez on 03-03-2025 Monocytes/100 WBC (Bld) 9.8 % 0-10 [facility] Neutrophil percentageOrdered By: Jose Perez on 03-03-2025 Neutrophils/100 WBC (Bld) 48.0 % 47-70 [facility] Nucleated red blood cell per centageOrdered By: Jose Perez on 03-03-2025 Nucleated RBC/100 WBC (Bld) [Ratio] 0 % 0-5 [facility] Platelet countOrdered By: Jasmine Perez on 03-03-2025 Platelets (Bld) [#/Vol] 339 10*3/uL 150-450 [facility] RBC Auto (Bld) [#/Vol]Ordere d By: Jose Perez on 03-03-2025 RBC (Bld) [#/Vol] 4.79 10*6/uL 4.6-6.2 [facility] White blood cell (WBC) count Ordered By: Jose Perez on 03-03-2025 WBC (Bld) [#/Vol] 11.3 10*3/uL High 4.4-11.0 [facility] SP/HP.SP.[place] 02-26-2025 SP/HP.SP.EV [facility] Speech Pathology [facility] [address] [place] [address] / REHABILITATION SERVICES INITIAL EVALUATION MR#: [id number] Acct: [id number] Name: KEVIN GRIFFITH Rep #: [id number] : 1945 79 From: Ayden Linares M.A., [facility] Referring Dr.: Dr. 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: SO History Attending Doctor: Referring Doctor: Reason [...] waiting list for an assisted living ( [place]) as he is exhibiting increased memory deficits [...] current prescribed condition?: No Personal Preferred language: Armenian Patient Allergies Allergies Allergies: Allergies metoclopramide (From [...] 02/25/25 15:18 Speech Therapy by Ayden Linares [facility] Speech Pathology [address] [place] [address] Modified Barium Swallow Study MR#: [id number] Acct: [id number] Name: KEVIN GRIFFITH Rep #: [id number] : 1945 79 From: Chayito Barber Modified [...] airway 2 (more content not included)... Normal [facility] AST(SGOT)on 02-20-2025 AST [Catalytic activity/Vol] 13 U/L Normal <=37 [facility] Comment on above: Performed By: #### L 501.4100, L500.2500, L501.4405, L501.9985, L502.0250 ####[facility] [address] [place], [address] Alanine Aminotransferas (SGP T)on 02-20-2025 ALT [Catalytic activity/Vol] 7 U/L Normal <=46 [facility] Comment on above: Performed By: #### L 501.4100, L500.2500, L501.4405, L501.9985, L502.0250 ####[facility] [address] [place], [address] Albumin DL <= 20 mg/L (U) [M ass/Vol]Ordered By: Natasha Gregory on 02-20-2025 Urine Random Microalbumin 13.6 mg/L NO RANGE EST. [facility] Anion gap in Serum or Plasma Ordered By: Natasha Gregory on 02-20-2025 Anion gap [Moles/Vol] 13 mmol/L 5-15 [facility] BUN/creatinine ratioOrdered By: Natasha Gregory on 02-20-2025 Urea nitrogen/Creatinine [Mass ratio] 23.0 mg/mg High 10-20 [facility] Basic Metabolic Profile (BMP )on 02-20-2025 BUN/CRE 23.0 RATIO High - [facility] Comment on above: Performed By: #### L 501.4100, L500.2500, L501.4405, L501.9985, L502.0250 ####[facility] [address] [place], [address] Calcium [Mass/Vol] 9.0 mg/dL Normal 7.6-11.0 [facility] Comment on above: Performed By: #### L 501.4100, L500.2500, L501.4405, L501.9985, L502.0250 ####[facility] [address] [place], [address] Chloride [Moles/Vol] 102 mmol/L Normal 98-108 [facility] Comment on above: Performed By: #### L 501.4100, L500.2500, L501.4405, L501.9985, L502.0250 ####[facility] [address] [place], [address] CO2 [Moles/Vol] 21.9 mmol/L Normal 21.0-32.0 [facility] Comment on above: Performed By: #### L 501.4100, L500.2500, L501.4405, L501.9985, L502.0250 ####[facility] [address] [place], [address] Creatinine [Mass/Vol] 0.83 mg/dL Normal 0.70-1.20 [facility] Comment on above: Performed By: #### L 501.4100, L500.2500, L501.4405, L501.9985, L502.0250 ####[facility] [address] [place], [address] GAP 13 Normal 5-15 [facility] Comment on above: Performed By: #### L 501.4100, L500.2500, L501.4405, L501.9985, L502.0250 ####[facility] [address] [place], [address] GFR/1.73 sq M.predicted among non-blacks MDRD (S/P/Bld) [Vol rate/Area] 89 mL/min/{1.73_m2} Normal >60 [facility] Comment on above: Result Comment: mL/m in/1.73m2 CKD-EPI Creatinine Equation (2020) Performed By: #### L 501.4100, L500.2500, L501.4405, L501.9985, L502.0250 ####[facility] [address] [place], [address] Glucose [Mass/Vol] 277 mg/dL High 70-99 [facility] Comment on above: Performed By: #### L 501.4100, L500.2500, L501.4405, L501.9985, L502.0250 ####[facility] [address] [place], [address] Potassium [Moles/Vol] 4.1 mmol/L Normal 3.3-5.1 [facility] Comment on above: Performed By: #### L 501.4100, L500.2500, L501.4405, L501.9985, L502.0250 ####[facility] [address] [place], [address] Sodium [Moles/Vol] 137 mmol/L Normal 133-145 [facility] Comment on above: Performed By: #### L 501.4100, L500.2500, L501.4405, L501.9985, L502.0250 ####[facility] [address] [place], [address] Urea nitrogen [Mass/Vol] 19 mg/dL Normal 4-19 [facility] Comment on above: Performed By: #### L 501.4100, L500.2500, L501.4405, L501.9985, L502.0250 ####[facility] [address] [place], [address] Carbon dioxide, total [Moles /volume] in Central venous bloodOrdered By: Natasha Gregory on 02-20-2025 CO2 [Moles/Vol] 21.9 mmol/L 21.0-32.0 [facility] Chloride assayOrdered By: Terri Gregory on 02-20-2025 Chloride [Moles/Vol] 102 mmol/L 98-108 [facility] Creatinine Unsp time (U) [Ma ss/Vol]Ordered By: Natasha Gregory on 02-20-2025 Creatinine (U) [Mass/Vol] 155.00 mg/dL 39 .00-259.0 0 [facility] GFR/1.73 sq M.predicted krystal g non-blacks MDRD (S/P/Bld) [Vol rate/Area]Ordered By: Natasha Gregory on 02-20-2025 Estimated GFR (MDRD) Non-Af Amer 89 >60 [facility] Comment on above: mL/min/1.73m2 CKD-EP I Creatinine Equation (2020) Glomerular filtration rate ( GFR) estimation/1.73 sq m using serum, plasma, or whole bOrdered By: Natasha Gregory on 02-20-2025 GFR/1.73 sq M.predicted among non-blacks MDRD (S/P/Bld) [Vol rate/Area] 89 mL/min/{1.73_m2} >60 [facility] Comment on above: mL/min/1.73m2 CKD-EP I Creatinine Equation (2020) Hemoglobin A1con 02-20-2025 HbA1c (Bld) [Mass fraction] 7.1 % Normal <=5.6 [facility] Comment on above: Performed By: #### L 501.4100, L500.2500, L501.4405, L501.9985, L502.0250 ####[facility] [address] [place], [place], [address] Hemoglobin A1c percentageOrd ered By: Natasha Gregory on 02-20-2025 HbA1c (Bld) [Mass fraction] 7.1 % >5.7 [facility] Laboratory - Chemistry and C hemistry - challengeOrdered By: Natasha Gregory on 02-20-2025 AST [Catalytic activity/Vol] 13 U/L <38 [facility] Microalbumin/creat ratio urO rdered By: Natasha Gregory on 02-20-2025 Urine Microalbumin/Creatinine Ratio 87.7 mg/g CRE [facility] Potassium (Unsp spec) [Mass/ Vol]Ordered By: Natasha Gregory on 02-20-2025 Potassium [Moles/Vol] 4.1 mmol/L 3.3-5.1 [facility] Potassium measurement (mass/ volume)Ordered By: Natasha Gregory on 02-20-2025 Potassium (Unsp spec) [Mass/Vol] 4.1 mmol/L 3.3-5.1 [facility] Random urine creatinine walt urement (mass/volume)Ordered By: Natasha Gregory on 02-20-2025 Creatinine Unsp time (U) [Mass/Vol] 155.00 mg/dL 39.00-259.0 0 [facility] Serum creatinine measurement (mass/volume)Ordered By: Natasha Gregory on 02-20-2025 Creatinine [Mass/Vol] 0.83 mg/dL 0.70-1.20 [facility] Serum glucose measurement (m ass/volume)Ordered By: Natasha Gregory on 02-20-2025 Glucose [Mass/Vol] 277 mg/dL High 70-99 [facility] Serum or plasma alanine max otransferase (ALT) measurementOrdered By: Natasha Gregory on 02-20-2025 ALT [Catalytic activity/Vol] 7 U/L <47 [facility] Serum or plasma calcium walt urement (mass/volume)Ordered By: Natasha Gregory on 02-20-2025 Calcium [Mass/Vol] 9.0 mg/dL 7.6-11.0 [facility] Serum or plasma urea nitroge n measurement (mass/volume)Ordered By: Natasha Gregory on 02-20-2025 Urea nitrogen [Mass/Vol] 19 mg/dL 4-19 [facility] Sodium levelOrdered By: Josefina Gregory on 02-20-2025 Sodium [Moles/Vol] 137 mmol/L 133-145 [facility] Urine albumin measurement wi th detection limit of 20 mg/L or less (mass/volume)Ordered By: Natasha Gregory on 02-20-2025 Albumin DL <= 20 mg/L (U) [Mass/Vol] 13.6 mg/L NO RANGE EST. [facility] Brain/Head without Contrasto n 02-14-2025 Brain/Head without Contrast [facility] Imaging Services [address] [place], [place] [address] Brain/Head without Contrast MR#: [id number] Acct: [id number] Name: KEVIN GRIFFITH Rep #: [id number] : 1945 M 79 From: Tatiana Guadalupe nd, MD PCP: Dr. Ron Cooley MD Status: REG ER Study: Brain/Head without Contrast Date of Exam: 01/19 07/14 Exam# [id number] Ordering Dr: Joe Soto DO EXAM: BRAIN/HEAD [...] ischemic change and age-related change. Reading Location: [id number]-CK CC: Dr. Ron Cooley MD; Dr. Joe Soto DO [employer] Agent: Signed Normal [facility] Emergency Department Summary on 02-14-2025 Emergency Department Summary [facility] Medical Records Department [address] [place] [address] Emergency Department Summary 02/14/25 MR#: [id number] Acct: [id number] Name: KEVIN GRIFFITH Rep #: [id number] : 1945 79 From: Joe Soto DO [...] noted some blood on his scalp earlier [facility] Medical History Parkinson's disease Right bundle branch [...] polyuria Hematol (more content not included)... Normal [facility] Spine Cervical without Contr ason 02-14-2025 Spine Cervical without Contras [facility] Imaging Services [address] [place] [address] Spine Cervical without Contras MR#: [id number] Acct: [id number] Name: KEVIN GRIFFITH Rep #: [id number] : 1945 M 79 From: Tatiana Guadalupe nd, MD PCP: Dr. Ron Cooley MD Status: REG ER Study: Spine Cervical without Contras Date of Exam: 0 02/14/25 Exam# [id number] Ordering Dr: Joe Soto DO PROCEDURE: SPINE [...] ACUTE CERVICAL FRACTURE. DEGENERATIVE CHANGES. Reading Location: KLO-FECQKUKA-OR CC: Dr. Ron Cooley MD; Dr. Joe Soto DO [employer] Agent: Signed Normal [facility] Neurology Visit Reporton Neurology Visit Report [facility] [address], [address] [place] [address] OFFICE VISIT Date of Service: 02/06/25 MR#: [id number] Acct: [id number] Name: KEVIN GRIFFITH Rep #: [id number] : 1945 Provider: Dr. Vick beltran MD Age/Sex: 79/M [place] [facility] 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 Normal [facility] Chest PA and Lateralon 01-21 Chest PA and Lateral [facility] Imaging Services [address] [place], [place] [address] Chest PA and Lateral MR#: [id number] Acct: [id number] Name: KEVIN GRIFFITH Rep #: [id number] : 1945 M 79 From: Donnell [facility] MD PCP: Dr. Ron Cooley MD Status: REG CLI Study: Chest PA and Lateral Date of Exam: 01/21/25 Exam# [id number] Ordering Dr: Ron Cooley MD EXAM: XR Chest, 2 Views CLINICAL INDICATION: TECHNIQUE: Frontal and lateral views of the chest. COMPARISON: No relevant prior studies available. FINDINGS: LUNGS AND PLEURAL SPACES: Unremarkable. No consolidation. No pneumothorax. HEART: Unremarkable. No cardiomegaly. MEDIASTINUM: Unremarkable. Normal mediastinal contour. BONES/JOINTS: Unremarkable. No acute fracture. RAD/Chest PA and Lateral IMPRESSION: No acute cardiopulmonary process. Reading [facility] CC: Dr. Ron Cooley MD [employer] Agent: Signed Normal [facility] Microalb:Creat Ratio,Random URon 12-10-2024 Creatinine [Mass/Vol] 104.00 mg/dL Normal NO RAN GE EST. [facility] Comment on above: Order Comment: [facility] SEND RESULTS OF B12 AND FOLATES TO Performed By: #### L 501.9985, L500.2500, L501.4405, L3100.1725, L503.0106, L501.4100 #### [facility] [address] [place], [address] MALB:CRE 17.0 mg/g CRE Normal <30 mg/g CRE [facility] Comment on above: Order Comment: [facility] SEND RESULTS OF B12 AND FOLATES TO Performed By: #### L 501.9985, L500.2500, L501.4405, L3100.1725, L503.0106, L501.4100 #### [facility] [address] [place], [place], [address] MICROALBUMIN,UR 17.7 mg/L Normal NO RANGE EST. [facility] Comment on above: Order Comment: [facility] SEND RESULTS OF B12 AND FOLATES TO Performed By: #### L 501.9985, L500.2500, L501.4405, L3100.1725, L503.0106, L501.4100 #### [facility] [address] [place], [place], [address] Neurology Visit Reporton Neurology Visit Report [facility] [address], [address] [place], [place] [address] OFFICE VISIT Date of Service: 12/10/24 MR#: [id number] Acct: [id number] Name: KEVIN GRIFFITH Rep #: [id number] : 1945 Provider: Dr. Vick beltran MD Age/Sex: 79/M Location[place] [facility] Status: Signed with Addenda ADDENDUM by Dr. 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 Normal [facility] Random urine microalbumin me asurementOrdered By: Ron Cooley on 12-10-2024 Urine Random Microalbumin 17.7 mg/L NO RANGE EST. [facility] Urine albumin/creatinine rat io for detection of microalbuminuriaOrdered By: Ron Cooley on 12-10-2024 Urine Microalbumin/Creatinine Ratio 17.0 mg/g CRE <30 [facility] Urine creatinine measurement (mass/volume)Ordered By: Ron Cooley on 12-10-2024 Creatinine (U) [Mass/Vol] 104.00 mg/dL NO RANGE EST. [facility] Brain/Head without Contrasto n 12-05-2024 Brain/Head without Contrast [facility] Imaging Services [address], [place] [address] Brain/Head without Contrast MR#: [id number] Acct: [id number] Name: KEVIN GRIFFITH Rep #: [id number] : 1945 M 79 From: Siva Horton DO PCP: Dr. Ron Cooley MD Status: PRE ER Study: Brain/Head without Contrast Date of Exam: 11/20 05/14 Exam# [id number] Ordering Dr: [place] [id number] STUDY: CT BRAIN WITHOUT CONTRAST REASON FOR [...] Ron Cooley MD; Dr. Estuardo Mccormack DO [employer] Agent: Signed Normal [facility] Emergency Department Summary on 12-05-2024 Emergency Department Summary [facility] Medical Records Department [address] [place] [address] Emergency Department Summary 12/05/24 MR#: [id number] Acct: [id number] Name: KEVIN GRIFFITH Rep #: [id number] : 1945 79 From: Estuardo Mccormack DO PCP: Dr. Ron Cooley MD Status:DEP ER Location: ED HPI HPI - Fall History of Present Illness Chief Complaint: Fall PFSH [facility] Medical History Parkinson's disease Right bundle branch [...] raccoon e (more content not included)... Normal [facility] Spine Cervical without Contr ason 12-05-2024 Spine Cervical without Contras [facility] Imaging Services [address] [place], [place] [address] Spine Cervical without Contras MR#: [id number] Acct: [id number] Name: KEVIN GRIFFITH Rep #: [id number] : 1945 M 79 From: Siva Horton DO PCP: Dr. Ron Cooley MD Status: REG ER Study: Spine Cervical without Contras Date of Exam: 0 12/05/24 Exam# [id number] Ordering Dr: [place] [id number] STUDY: CT CERVICAL SPINE WITHOUT CONTRAST REASON [...] 18:32 EST Reading Location ID and State: [facility] / [place] Tel [phone], Service support , CC: Dr. Ron Cooley MD; Dr. Estuardo Mccormack DO [employer] Agent: Signed Normal [facility] 75-PN-Dsrodge DOrdered By: Chetan Cooley on 12-04-2024 Vitamin D 25-Hydroxy 47.5 ng/mL [facility] Comment on above: Vitamin D 25(OH) Sta tus Range Deficiency <20 ng/mL (50nmol/L) Insufficiency 20 - 30 ng/mL (50 - 75 nmol/L) Sufficiency 30 - 100 ng/mL (75 - 250 nmol/L) Toxicity >100 ng/mL (>250 nmol/L) Absolute lymphocyte countOrd ered By: Ron Cooley on 12-04-2024 Lymphocytes Auto (Unsp spec) [#/Vol] 3.42 10*3/uL 0.83-4.51 [facility] Absolute neutrophil countOrd ered By: Ron Cooley on 12-04-2024 Neutrophils (Bld) [#/Vol] 5.9 10*3/uL 2.0-7.7 [facility] Albumin to globulin ratioOrd ered By: Ron Cooley on 12-04-2024 Albumin/Globulin [Mass ratio] 1.0 {ratio} 0.9-2.4 [facility] Automated lymphocyte count a s percentage of total leukocytesOrdered By: Ron Cooley on 12-04-2024 Lymphocytes/100 WBC Auto (Unsp spec) 31.5 % - [facility] Basophil percentageOrdered B y: Ron Cooley on 12-04-2024 Basophils/100 WBC (Bld) 1.2 % High 0-1 [facility] Bilirubin, totalOrdered By: Ron Cooley on 12-04-2024 Bilirubin [Mass/Vol] 0.80 mg/dL 0.20-1.00 [facility] Comment on above: For patients on eltr ombopag therapy, use of Dimension Leupp TBIL is not recommended. Blood urea nitrogen (BUN)/cr eatinine ratioOrdered By: Ron Cooley on 12-04-2024 Urea nitrogen/Creatinine [Mass ratio] 19.7 mg/mg 10-20 [facility] CBC W/Diff, Automatedon 11-20 Absolute Lymph 3.42 X10 3/uL Normal 0.83-4.51 [facility] Comment on above: Order Comment: Order Date: 12/04/24Order Info: 0184-1 - CBCD Performed By: #### L 501.9985, L501.5200, L500.4050, L100.0100, L500.4100, L506.1000 ####[facility] [address] [place], [address] Absolute Neut 5.9 X10 3/uL Normal 2.0-7.7 [facility] Comment on above: Order Comment: Order Date: 12/04/24Order Info: 0184-1 - CBCD Performed By: #### L 501.9985, L501.5200, L500.4050, L100.0100, L500.4100, L506.1000 ####[facility] [address] [place], [address] Basophils/100 WBC (Bld) 1.2 % High 0-1 [facility] Comment on above: Order Comment: Order Date: 12/04/24Order Info: 0184-1 - CBCD Performed By: #### L 501.9985, L501.5200, L500.4050, L100.0100, L500.4100, L506.1000 ####[facility] [address] [place], [address] Eosinophils/100 WBC (Bld) 1.8 % Normal 0-5 [facility] Comment on above: Order Comment: Order Date: 12/04/24Order Info: 0184-1 - CBCD Performed By: #### L 501.9985, L501.5200, L500.4050, L100.0100, L500.4100, L506.1000 ####[facility] [address] [place], [address] Erythrocyte distribution width (RBC) [Ratio] 13.4 % Normal 11.6-14.6 [facility] Comment on above: Order Comment: Order Date: 12/04/24Order Info: 0184-1 - CBCD Performed By: #### L 501.9985, L501.5200, L500.4050, L100.0100, L500.4100, L506.1000 ####[facility] [address] [place], [address] Hematocrit (Bld) [Volume fraction] 47.1 % Normal 40-54 [facility] Comment on above: Order Comment: Order Date: 12/04/24Order Info: 0184-1 - CBCD Performed By: #### L 501.9985, L501.5200, L500.4050, L100.0100, L500.4100, L506.1000 ####[facility] [address] [place], [address] Hemoglobin (Bld) [Mass/Vol] 15.4 g/dL Normal 13.0-16.5 [facility] Comment on above: Order Comment: Order Date: 12/04/24Order Info: 0184-1 - CBCD Performed By: #### L 501.9985, L501.5200, L500.4050, L100.0100, L500.4100, L506.1000 ####[facility] [address] [place], [address] IG% 0.600 Normal 0.0-0.9 [facility] Comment on above: Order Comment: Order Date: 12/04/24Order Info: 0184-1 - CBCD Result Comment: IG% - Immature Granulocytes (promyelocytes, myelocytes and metamyelocytes) > 1% indicates that a LEFT SHIFT is Present. Performed By: #### L 501.9985, L501.5200, L500.4050, L100.0100, L500.4100, L506.1000 ####[facility] [address] [place], [address] Lymphocytes/100 WBC (Bld) 31.5 % Normal 19-41 [facility] Comment on above: Order Comment: Order Date: 12/04/24Order Info: 0184-1 - CBCD Performed By: #### L 501.9985, L501.5200, L500.4050, L100.0100, L500.4100, L506.1000 ####[facility] [address] [place], [address] MCH (RBC) [Entitic mass] 30.4 pg Normal 27.0-32.0 [facility] Comment on above: Order Comment: Order Date: 12/04/24Order Info: 0184-1 - CBCD Performed By: #### L 501.9985, L501.5200, L500.4050, L100.0100, L500.4100, L506.1000 ####[facility] [address] [place], [address] MCHC (RBC) [Mass/Vol] 32.7 g/dL Normal 32-36 [facility] Comment on above: Order Comment: Order Date: 12/04/24Order Info: 0184-1 - CBCD Performed By: #### L 501.9985, L501.5200, L500.4050, L100.0100, L500.4100, L506.1000 ####[facility] [address] [place], [address] MCV (RBC) [Entitic vol] 92.9 fL Normal 80-94 [facility] Comment on above: Order Comment: Order Date: 12/04/24Order Info: 0184-1 - CBCD Performed By: #### L 501.9985, L501.5200, L500.4050, L100.0100, L500.4100, L506.1000 ####[facility] [address] [place], [address] Monocytes/100 WBC (Bld) 10.8 % High 0-10 [facility] Comment on above: Order Comment: Order Date: 12/04/24Order Info: 0184-1 - CBCD Performed By: #### L 501.9985, L501.5200, L500.4050, L100.0100, L500.4100, L506.1000 ####[facility] [address] [place], [address] Neutrophils/100 WBC (Bld) 54.1 % Normal 47-70 [facility] Comment on above: Order Comment: Order Date: 12/04/24Order Info: 0184-1 - CBCD Performed By: #### L 501.9985, L501.5200, L500.4050, L100.0100, L500.4100, L506.1000 ####[facility] [address] [place], [address] Nucleated RBC (Bld) [#/Vol] 0 10*3/uL Normal 0-5 [facility] Comment on above: Order Comment: Order Date: 12/04/24Order Info: 0184-1 - CBCD Performed By: #### L 501.9985, L501.5200, L500.4050, L100.0100, L500.4100, L506.1000 ####[facility] [address] [place], [address] Platelet mean volume (Bld) [Entitic vol] 10.8 fL Normal 6.2-12.0 [facility] Comment on above: Order Comment: Order Date: 12/04/24Order Info: 0184-1 - CBCD Performed By: #### L 501.9985, L501.5200, L500.4050, L100.0100, L500.4100, L506.1000 ####[facility] [address] [place], [address] Platelets (Bld) [#/Vol] 281 10*3/uL Normal 150-450 [facility] Comment on above: Order Comment: Order Date: 12/04/24Order Info: 0184-1 - CBCD Performed By: #### L 501.9985, L501.5200, L500.4050, L100.0100, L500.4100, L506.1000 ####[facility] [address] [place], [address] RBC (Bld) [#/Vol] 5.07 10*6/uL Normal 4.6-6.2 [facility] Comment on above: Order Comment: Order Date: 12/04/24Order Info: 0184-1 - CBCD Performed By: #### L 501.9985, L501.5200, L500.4050, L100.0100, L500.4100, L506.1000 ####[facility] [address] [place], [address] RDW SD 45.1 fl High 35.1-43.9 [facility] Comment on above: Order Comment: Order Date: 12/04/24Order Info: 0184-1 - CBCD Performed By: #### L 501.9985, L501.5200, L500.4050, L100.0100, L500.4100, L506.1000 ####[facility] [address] [place], [address] WBC (Bld) [#/Vol] 10.9 10*3/uL Normal 4.4-11.0 [facility] Comment on above: Order Comment: Order Date: 12/04/24Order Info: 0184-1 - CBCD Performed By: #### L 501.9985, L501.5200, L500.4050, L100.0100, L500.4100, L506.1000 ####[facility] [address] [place], [address] Carbon dioxide measurementOr dered By: Ron Cooley on 12-04-2024 CO2 [Moles/Vol] 29.0 mmol/L 21.0-32.0 [facility] Chloride measurementOrdered By: Ron Cooley on 12-04-2024 Chloride [Moles/Vol] 105 mmol/L 98-107 [facility] Comprehensive Metabolic Prof ilon 12-04-2024 Albumin [Mass/Vol] 3.7 g/dL Normal 3.2-5.0 [facility] Comment on above: Order Comment: Order Date: 12/04/24Order Info: [id number] - CMPOrder Info: [id number] - LIPIDOrder Info: [id number] - MG Performed By: #### L 501.9985, L501.5200, L500.4050, L100.0100, L500.4100, L506.1000 ####[facility] [address] [place], [address] Albumin/Globulin [Mass ratio] 1.0 {ratio} Normal 0.9-2.4 [facility] Comment on above: Order Comment: Order Date: 12/04/24Order Info: [id number] - CMPOrder Info: [id number] - LIPIDOrder Info: [id number] - MG Performed By: #### L 501.9985, L501.5200, L500.4050, L100.0100, L500.4100, L506.1000 ####[facility] [address] [place], [address] ALK P 91 U/L Normal 45-117 [facility] Comment on above: Order Comment: Order Date: 12/04/24Order Info: [id number] - CMPOrder Info: [id number] - LIPIDOrder Info: [id number] - MG Performed By: #### L 501.9985, L501.5200, L500.4050, L100.0100, L500.4100, L506.1000 ####[facility] [address] [place], [address] ALT [Catalytic activity/Vol] 11 U/L Low 16-61 [facility] Comment on above: Order Comment: Order Date: 12/04/24Order Info: [id number] - CMPOrder Info: [id number] - LIPIDOrder Info: [id number] - MG Performed By: #### L 501.9985, L501.5200, L500.4050, L100.0100, L500.4100, L506.1000 ####[facility] [address] [place], [address] AST [Catalytic activity/Vol] 13 U/L Low 15-37 [facility] Comment on above: Order Comment: Order Date: 01/15/25Order Info: [id number] - CMPOrder Info: [id number] - LIPIDOrder Info: [id number] - MG Performed By: #### L 501.9985, L501.5200, L500.4050, L100.0100, L500.4100, L506.1000 ####[facility] [address] [place], [address] Bilirubin [Mass/Vol] 0.80 mg/dL Normal 0.20-1.00 [facility] Comment on above: Order Comment: Order Date: 12/04/24Order Info: 86-1 - CMPOrder Info: [id number] - LIPIDOrder Info: [id number] - MG Result Comment: For patients on eltrombopag therapy, use of Dimension Leupp TBIL is not recommended. Performed By: #### L 501.9985, L501.5200, L500.4050, L100.0100, L500.4100, L506.1000 ####[facility] [address] [place], [address] BUN/CRE 19.7 RATIO Normal 10-20 [facility] Comment on above: Order Comment: Order Date: 12/04/24Order Info: 07- - CMPOrder Info: [id number] - LIPIDOrder Info: [id number] - MG Performed By: #### L 501.9985, L501.5200, L500.4050, L100.0100, L500.4100, L506.1000 ####[facility] [address] [place], [address] CA,Total 9.4 mg/dL Normal 8.5-10.1 [facility] Comment on above: Order Comment: Order Date: 12/04/24Order Info: [id number] - CMPOrder Info: [id number] - LIPIDOrder Info: [id number] - MG Performed By: #### L 501.9985, L501.5200, L500.4050, L100.0100, L500.4100, L506.1000 ####[facility] [address] [place], [address] Chloride [Moles/Vol] 105 mmol/L Normal 98-107 [facility] Comment on above: Order Comment: Order Date: 12/04/24Order Info: [id number] - CMPOrder Info: [id number] - LIPIDOrder Info: [id number] - MG Performed By: #### L 501.9985, L501.5200, L500.4050, L100.0100, L500.4100, L506.1000 ####[facility] [address] [place], [address] CO2 [Moles/Vol] 29.0 mmol/L Normal 21.0-32.0 [facility] Comment on above: Order Comment: Order Date: 12/04/24Order Info: [id number] - CMPOrder Info: [id number] - LIPIDOrder Info: [id number] - MG Performed By: #### L 501.9985, L501.5200, L500.4050, L100.0100, L500.4100, L506.1000 ####[facility] [address] [place], [address] Creatinine [Mass/Vol] 0.96 mg/dL Normal 0.70-1.30 [facility] Comment on above: Order Comment: Order Date: 12/04/24Order Info: [id number] - CMPOrder Info: [id number] - LIPIDOrder Info: [id number] - MG Result Comment: The validity of the calculated GFR GFRAA in patients over 70 years has not been determined. Clinical correlation is essential. Performed By: #### L 501.9985, L501.5200, L500.4050, L100.0100, L500.4100, L506.1000 ####[facility] [address] [place], [address] EST GFR - AA 97 mL/min Normal >60 [facility] Comment on above: Order Comment: Order Date: 12/04/24Order Info: [id number] - CMPOrder Info: [id number] - LIPIDOrder Info: [id number] - MG Result Comment: Afri can Malagasy GFR Calc Performed By: #### L 501.9985, L501.5200, L500.4050, L100.0100, L500.4100, L506.1000 ####[facility] [address] [place], [address] GAP 5 Normal 5-15 [facility] Comment on above: Order Comment: Order Date: 12/04/24Order Info: [id number] - CMPOrder Info: [id number] - LIPIDOrder Info: [id number] - MG Performed By: #### L 501.9985, L501.5200, L500.4050, L100.0100, L500.4100, L506.1000 ####[facility] [address] [place], [place], [address](944) GFR/1.73 sq M.predicted among non-blacks MDRD (S/P/Bld) [Vol rate/Area] 80 mL/min/{1.73_m2} Normal >60 [facility] Comment on above: Order Comment: Order Date: 12/04/24Order Info: 0786- - CMPOrder Info: [id number] - LIPIDOrder Info: [id number] - MG Result Comment: Non- GFR Calc Performed By: #### L 501.9985, L501.5200, L500.4050, L100.0100, L500.4100, L506.1000 ####[facility] [address] [place], [address] Globulin (S) [Mass/Vol] 3.7 g/dL Normal 2.2-4.2 [facility] Comment on above: Order Comment: Order Date: 12/04/24Order Info: [id number] - CMPOrder Info: [id number] - LIPIDOrder Info: [id number] - MG Performed By: #### L 501.9985, L501.5200, L500.4050, L100.0100, L500.4100, L506.1000 ####[facility] [address] [place], [address] Glucose [Mass/Vol] 48 mg/dL Low 74-106 [facility] Comment on above: Order Comment: Order Date: 12/04/24Order Info: [id number] - CMPOrder Info: [id number] - LIPIDOrder Info: [id number] - MG Result Comment: Gluc ose result less than 50 mg/dL suggests HYPOGLYCEMIA. Performed By: #### L 501.9985, L501.5200, L500.4050, L100.0100, L500.4100, L506.1000 ####[facility] [facility] [address] [place], [address] Potassium [Moles/Vol] 3.9 mmol/L Normal 3.5-5.1 [facility] Comment on above: Order Comment: Order Date: 12/04/24Order Info: [id number] CMPOrder Info: [id number] - LIPIDOrder Info: [id number] - MG Performed By: #### L 501.9985, L501.5200, L500.4050, L100.0100, L500.4100, L506.1000 ####[facility] [address] [place], [address] Sodium [Moles/Vol] 139 mmol/L Normal 136-145 [facility] Comment on above: Order Comment: Order Date: 12/04/24Order Info: [id number] - CMPOrder Info: [id number] - LIPIDOrder Info: [id number] - MG Performed By: #### L 501.9985, L501.5200, L500.4050, L100.0100, L500.4100, L506.1000 ####[facility] [address] [place], [address] T PROT 7.4 g/dL Normal 6.4-8.2 [facility] Comment on above: Order Comment: Order Date: 12/04/24Order Info: [id number] - CMPOrder Info: [id number] - LIPIDOrder Info: [id number] - MG Performed By: #### L 501.9985, L501.5200, L500.4050, L100.0100, L500.4100, L506.1000 ####[facility] [address] [place], [address] Urea nitrogen [Mass/Vol] 19 mg/dL High 7-18 [facility] Comment on above: Order Comment: Order Date: 12/04/24Order Info: [id number] - CMPOrder Info: [id number] - LIPIDOrder Info: [id number] - MG Performed By: #### L 501.9985, L501.5200, L500.4050, L100.0100, L500.4100, L506.1000 ####[facility] [address] [place], [address] Eosinophil percentageOrdered By: Ron Cooley on 12-04-2024 Eosinophils/100 WBC (Bld) 1.8 % 0-5 [facility] Erythrocyte distribution wid th ratioOrdered By: Ron Cooley on 12-04-2024 Erythrocyte distribution width (RBC) [Ratio] 13.4 % 11.6-14.6 [facility] Erythrocyte distribution wid th standard deviationOrdered By: Ron Cooley on 12-04-2024 Erythrocyte distribution width (RBC) [Entitic vol] 45.1 fL High 35.1-43.9 [facility] Erythrocyte distribution width (RBC) [Ratio] 45.1 fl High 35.1-43.9 [facility] Estimated glomerular filtrat ion rate (GFR) AmericanOrdered By: Ron Cooley on 12-04-2024 Estimated GFR (MDRD) Amer 97 mL/min >60 [facility] Comment on above: GFR Calc Glomerular filtration rate ( GFR) estimationOrdered By: Ron Cooley on 12-04-2024 Estimated GFR (MDRD) Non-Af Amer 80 mL/min >60 [facility] Comment on above: Non- GFR Calc GFR/1.73 sq M.predicted among non-blacks MDRD (S/P/Bld) [Vol rate/Area] 80 mL/min/{1.73_m2} >60 [facility] Comment on above: Non- GFR Calc Glucose measurementOrdered B y: Ron Cooley on 12-04-2024 Glucose [Mass/Vol] 48 mg/dL Low 74-106 [facility] Comment on above: Glucose result less than 50 mg/dL suggests HYPOGLYCEMIA. Hematocrit Auto (Bld) [Volum e fraction]Ordered By: Ron Cooley on 12-04-2024 Hematocrit (Bld) [Volume fraction] 47.1 % 40-54 [facility] Hemoglobin A1con 12-04-2024 HbA1c (Bld) [Mass fraction] 6.5 % High 3.8-5.6 [facility] Comment on above: Order Comment: Order Date: 12/04/24Order Info: [id number] - A1C Result Comment: Norm al < 5.7 % Prediabetic 5.7 - 6.4 % Diabetic >or= 6.5 % Please note range changes. Performed By: #### L 501.9985, L501.5200, L500.4050, L100.0100, L500.4100, L506.1000 ####[facility] [address] [place], [address] Hemoglobin A1c percentageOrd ered By: Ron Cooley on 12-04-2024 HbA1c (Bld) [Mass fraction] 6.5 % High 3.8-5.6 [facility] Comment on above: Normal < 5.7 % Predi abetic 5.7 - 6.4 % Diabetic >or= 6.5 % Please note range changes. Hemoglobin measurementOrdere d By: Ron Cooley on 12-04-2024 Hemoglobin (Bld) [Mass/Vol] 15.4 g/dL 13.0-16.5 [facility] High density lipoprotein (HD L) measurementOrdered By: Ron Cooley on 12-04-2024 Cholesterol in HDL [Mass/Vol] 45 mg/dL >40 [facility] Comment on above: The drugs N-Acetylcy steine and Metamizole may falsely depress this assay. Reference Range HDL <40 mg/dL Low HDL Cholesterol HDL >or= 60 mg/dL High HDL Cholesterol Immature granulocytes/100 WB C Auto (Bld)Ordered By: Ron Cooley on 12-04-2024 Immature granulocytes/100 WBC (Bld) 0.600 % 0.0-0.9 [facility] Comment on above: IG% - Immature Granu locytes (promyelocytes, myelocytes and metamyelocytes) > 1% indicates that a LEFT SHIFT is Present. Laboratory - Chemistry and C hemistry - challengeOrdered By: Ron Cooley on 12-04-2024 AST [Catalytic activity/Vol] 13 U/L Low 15- [facility] Lipid Profileon 12-04-2024 Cholesterol [Mass/Vol] 192 mg/dL Normal 200 [facility] Comment on above: Order Comment: Order Date: 12/04/24Order Info: [id number] - CMPOrder Info: [id number] - LIPIDOrder Info: [id number] - MG Result Comment: <200 mg/dL Desirable 200-240 mg/dL Borderline >240 mg/dL High Risk Performed By: #### L 501.9985, L501.5200, L500.4050, L100.0100, L500.4100, L506.1000 ####[facility] [address] [place], [address] Cholesterol in HDL [Mass/Vol] 45 mg/dL Normal [facility] Comment on above: Order Comment: Order Date: 12/04/24Order Info: [id number] - CMPOrder Info: [id number] - LIPIDOrder Info: [id number] - MG Result Comment: The drugs N-Acetylcysteine and Metamizole may falsely depress this assay. Reference Range HDL <40 mg/dL Low HDL Cholesterol HDL >or= 60 mg/dL High HDL Cholesterol Performed By: #### L 501.9985, L501.5200, L500.4050, L100.0100, L500.4100, L506.1000 ####[facility] [address] [place], [address] Cholesterol in LDL [Mass/Vol] 116 mg/dL Normal 0-130 [facility] Comment on above: Order Comment: Order Date: 12/04/24Order Info: [id number] - CMPOrder Info: [id number] - LIPIDOrder Info: [id number] - MG Performed By: #### L 501.9985, L501.5200, L500.4050, L100.0100, L500.4100, L506.1000 ####[facility] [address] [place], [address] Cholesterol in VLDL [Mass/Vol] 31 mg/dL Normal 5-40 [facility] Comment on above: Order Comment: Order Date: 12/04/24Order Info: [id number] - CMPOrder Info: [id number] - LIPIDOrder Info: [id number] - MG Performed By: #### L 501.9985, L501.5200, L500.4050, L100.0100, L500.4100, L506.1000 ####[facility] [address] [place], [place], [address] Triglyceride [Mass/Vol] 153 mg/dL Normal [facility] Comment on above: Order Comment: Order Date: 12/04/24Order Info: [id number] - CMPOrder Info: [id number] - LIPIDOrder Info: [id number] - MG Result Comment: The drugs N-Acetylcysteine and Metamizole may falsely depress this assay. Serum Triglycerides Reference Interval Normal <150 mg/dL Borderline high 150 - 199 mg/dL High 200 - 499 mg/dL Very High > or = 500 mg/dL Performed By: #### L 501.9985, L501.5200, L500.4050, L100.0100, L500.4100, L506.1000 ####[facility] [address] [place], [place], [address] Low density lipoprotein (LDL ) cholesterol measurementOrdered By: Ron Cooley on 12-04-2024 Cholesterol in LDL [Mass/Vol] 116 mg/dL 0-130 [facility] Lymphocytes Auto (Unsp spec) [#/Vol]Ordered By: Ron Cooley on 12-04-2024 Lymphocytes (Bld) [#/Vol] 3.42 10*3/uL 0.83-4.5 1 [facility] Lymphocytes/100 WBC Auto (Un sp spec)Ordered By: Ron Cooley on 12-04-2024 Lymphocytes/100 WBC (Bld) 31.5 % 19-41 [facility] MCV (mean corpuscular volume ) determinationOrdered By: Ron Cooley on 12-04-2024 MCV (RBC) [Entitic vol] 92.9 fL 80-94 [facility] Magnesiumon 12-04-2024 Magnesium [Mass/Vol] 2.0 mg/dL Normal 1.6-2.6 [facility] Comment on above: Order Comment: Order Date: 12/04/24Order Info: [id number] - CMPOrder Info: [id number] - LIPIDOrder Info: [id number] - MG Performed By: #### L 501.9985, L501.5200, L500.4050, L100.0100, L500.4100, L506.1000 ####[facility] [address] [facility] [place], [address] Magnesium measurementOrdered By: Ron Cooley on 12-04-2024 Magnesium [Mass/Vol] 2.0 mg/dL 1.6-2.6 [facility] Mean corpuscular hemoglobin (MCH) determinationOrdered By: Ron Cooley on 12-04-2024 MCH (RBC) [Entitic mass] 30.4 pg 27.0-32.0 [facility] Mean corpuscular hemoglobin concentration (MCHC) determinationOrdered By: Ron Cooley on 12-04-2024 MCHC (RBC) [Mass/Vol] 32.7 g/dL 32-36 [facility] Mean platelet volume determi nationOrdered By: Ron Cooley on 12-04-2024 Platelet mean volume (Bld) [Entitic vol] 10.8 fL 6.2-12.0 [facility] Monocyte percentageOrdered B y: Ron Cooley on 12-04-2024 Monocytes/100 WBC (Bld) 10.8 % High 0-10 [facility] Neutrophil percentageOrdered By: Ron Cooley on 12-04-2024 Neutrophils/100 WBC (Bld) 54.1 % 47-70 [facility] Nucleated red blood cell per centageOrdered By: Ron Cooley on 12-04-2024 Nucleated RBC/100 WBC (Bld) [Ratio] 0 % 0-5 [facility] Platelet countOrdered By: Rimma Cooley on 12-04-2024 Platelets (Bld) [#/Vol] 281 10*3/uL 150-450 [facility] Potassium measurementOrdered By: Ron Cooley on 12-04-2024 Potassium [Moles/Vol] 3.9 mmol/L 3.5-5.1 [facility] RBC Auto (Bld) [#/Vol]Ordere d By: Ron Cooley on 12-04-2024 RBC (Bld) [#/Vol] 5.07 10*6/uL 4.6-6.2 [facility] Serum anion gap measurementO rdered By: Ron Cooley on 12-04-2024 Anion gap [Moles/Vol] 5 mmol/L 5-15 [facility] Serum globulin measurementOr dered By: Ron Cooley on 12-04-2024 Globulin (S) [Mass/Vol] 3.7 g/dL 2.2-4.2 [facility] Serum or plasma alanine max otransferase (ALT) measurementOrdered By: Ron Cooley on 12-04-2024 ALT [Catalytic activity/Vol] 11 U/L Low 16-61 [facility] Serum or plasma albumin walt urement (mass/volume)Ordered By: Ron Cooley on 12-04-2024 Albumin [Mass/Vol] 3.7 g/dL 3.2-5.0 [facility] Serum or plasma alkaline sarah sphatase measurementOrdered By: Ron Cooley on 12-04-2024 ALP [Catalytic activity/Vol] 91 U/L 45-117 [facility] Serum or plasma calcium walt urement (mass/volume)Ordered By: Ron Cooley on 12-04-2024 Calcium [Mass/Vol] 9.4 mg/dL 8.5-10.1 [facility] Serum or plasma cholesterol measurement (mass/volume)Ordered By: Ron Cooley on 12-04-2024 Cholesterol [Mass/Vol] 192 mg/dL <200 [facility] Comment on above: <200 mg/dL Desirable 200-240 mg/dL Borderline >240 mg/dL High Risk Serum or plasma creatinine m easurement (mass/volume)Ordered By: Ron Cooley on 12-04-2024 Creatinine [Mass/Vol] 0.96 mg/dL 0.70-1.30 [facility] Comment on above: The validity of the calculated GFR & GFRAA in patients over 70 years has not been determined. Clinical correlation is essential. Serum or plasma urea nitroge n measurement (mass/volume)Ordered By: Ron Cooley on 12-04-2024 Urea nitrogen [Mass/Vol] 19 mg/dL High 7-18 [facility] Sodium levelOrdered By: Ron Cooley on 12-04-2024 Sodium [Moles/Vol] 139 mmol/L 136-145 [facility] Total proteinOrdered By: Kwabena Cooley on 12-04-2024 Protein [Mass/Vol] 7.4 g/dL 6.4-8.2 [facility] Triglycerides measurementOrd ered By: Ron Cooley on 12-04-2024 Triglyceride [Mass/Vol] 153 mg/dL <199 [facility] Comment on above: The drugs N-Acetylcy steine and Metamizole may falsely depress this assay.Serum Triglycerides Reference Interval Normal <150 mg/dL Borderline high 150 - 199 mg/dL High 200 - 499 mg/dL Very High > or = 500 mg/dL Very low density lipoprotein (VLDL) cholesterol measurementOrdered By: Ron Cooley on 12-04-2024 Very low density lipoprotein (VLDL) cholesterol measurement 31 mg/dL 5-40 [facility] VLDL Cholesterol 31 mg/dL 5-40 [facility] Vitamin D,25 Hydroxyon 12-04 Vitamin D 25-OH 47.5 ng/mL Normal [facility] Comment on above: Order Comment: Order Date: 12/04/24Order Info: [id number] - [id number] Result Comment: Lisa min D 25(OH) Status Range Deficiency <20 ng/mL (50nmol/L) Insufficiency 20 - 30 ng/mL (50 - 75 nmol/L) Sufficiency 30 - 100 ng/mL (75 - 250 nmol/L) Toxicity >100 ng/mL (>250 nmol/L) Performed By: #### L 501.9985, L501.5200, L500.4050, L100.0100, L500.4100, L506.1000 ####[facility] [address] [place], [address] White blood cell (WBC) count Ordered By: Ron Cooley on 12-04-2024 WBC (Bld) [#/Vol] 10.9 10*3/uL 4.4-11.0 [facility] Chest PA and Lateralon 12-02 Chest PA and Lateral [facility] Imaging Services [address] [place] [address] Chest PA and Lateral MR#: [id number] Acct: [id number] Name: KEVIN GRIFFITH Rep #: [id number] : 1945 M 79 From: José Luis Nicolas PCP: Dr. Ron Cooley MD Status: [facility] Study: Chest PA and Lateral Date of Exam: 12/02/24 Exam# [id number] Ordering Dr: [place] [id number] INDICATION: HYPOXEMIA EXAMINATION/TECHNIQUE: X-RAY - XR Chest [...] Ron Cooley MD; Dr. Jose Perez MD [employer] Agent: Signed Normal [facility] AST(SGOT)on 10-28-2024 AST [Catalytic activity/Vol] 9 U/L Low 15-37 [facility] Comment on above: Performed By: #### L 501.9985, L500.2500, L501.4405, L3100.1725, L503.0106, L501.4100 #### [facility] [address] [place], [address] Alanine Aminotransferas (SGP T)on 10-28-2024 ALT [Catalytic activity/Vol] 8 U/L Low 16-61 [facility] Comment on above: Performed By: #### L 501.9985, L500.2500, L501.4405, L3100.1725, L503.0106, L501.4100 #### [facility] [address] [place], [address] Basic Metabolic Profile (BMP )on 10-28-2024 BUN/CRE 26.5 RATIO High 10-20 [facility] Comment on above: Performed By: #### L 501.9985, L500.2500, L501.4405, L3100.1725, L503.0106, L501.4100 #### [facility] [address] [place], [address] CA,Total 9.3 mg/dL Normal 8.5-10.1 [facility] Comment on above: Performed By: #### L 501.9985, L500.2500, L501.4405, L3100.1725, L503.0106, L501.4100 #### [facility] [address] [place], [address] Chloride [Moles/Vol] 105 mmol/L Normal 98-107 [facility] Comment on above: Performed By: #### L 501.9985, L500.2500, L501.4405, L3100.1725, L503.0106, L501.4100 #### [facility] [address] [place], [address] CO2 [Moles/Vol] 31.0 mmol/L Normal 21.0-32.0 [facility] Comment on above: Performed By: #### L 501.9985, L500.2500, L501.4405, L3100.1725, L503.0106, L501.4100 #### [facility] [address] [place], [address] Creatinine [Mass/Vol] 0.91 mg/dL Normal 0.70-1.30 [facility] Comment on above: Result Comment: The validity of the calculated GFR GFRAA in patients over 70 years has not been determined. Clinical correlation is essential. Performed By: #### L 501.9985, L500.2500, L501.4405, L3100.1725, L503.0106, L501.4100 #### [facility] [address] [place], [address] EST GFR - AA 103 mL/min Normal >60 [facility] Comment on above: Result Comment: Afri can Malagasy GFR Calc Performed By: #### L 501.9985, L500.2500, L501.4405, L3100.1725, L503.0106, L501.4100 #### [facility] [address] [place], [address] GAP 5 Normal 5-15 [facility] Comment on above: Performed By: #### L 501.9985, L500.2500, L501.4405, L3100.1725, L503.0106, L501.4100 #### [facility] [address] [place], [address] GFR/1.73 sq M.predicted among non-blacks MDRD (S/P/Bld) [Vol rate/Area] 86 mL/min/{1.73_m2} Normal >60 [facility] Comment on above: Result Comment: Non- GFR Calc Performed By: #### L 501.9985, L500.2500, L501.4405, L3100.1725, L503.0106, L501.4100 #### [facility] [address] [place], [address] Glucose [Mass/Vol] 111 mg/dL High 74-106 [facility] Comment on above: Result Comment: Fast ing Glucose result from 100 to 125 mg/dL suggests IMPAIRED HOMEOSTASIS per A.D.A. criteria. Performed By: #### L 501.9985, L500.2500, L501.4405, L3100.1725, L503.0106, L501.4100 #### [facility] [address] [place], [address] Potassium [Moles/Vol] 3.4 mmol/L Low 3.5-5.1 [facility] Comment on above: Performed By: #### L 501.9985, L500.2500, L501.4405, L3100.1725, L503.0106, L501.4100 #### [facility] [address] [place], [address] Sodium [Moles/Vol] 142 mmol/L Normal 136-145 [facility] Comment on above: Performed By: #### L 501.9985, L500.2500, L501.4405, L3100.1725, L503.0106, L501.4100 #### [facility] [address] [place], [address] Urea nitrogen [Mass/Vol] 24 mg/dL High 7-18 [facility] Comment on above: Performed By: #### L 501.9985, L500.2500, L501.4405, L3100.1725, L503.0106, L501.4100 #### [facility] [address] [place], [place], [address] Blood urea nitrogen (BUN)/cr eatinine ratioOrdered By: Natasha Gregory on 10-28-2024 Urea nitrogen/Creatinine [Mass ratio] 26.5 mg/mg High 10-20 [facility] Carbon dioxide measurementOr dered By: Natasha Gregory on 10-28-2024 CO2 [Moles/Vol] 31.0 mmol/L 21.0-32.0 [facility] Chloride measurementOrdered By: Natasha Gregory on 10-28-2024 Chloride [Moles/Vol] 105 mmol/L 98-107 [facility] Estimated glomerular filtrat ion rate (GFR) AmericanOrdered By: Natasha Gregory on 10-28-2024 Estimated GFR (MDRD) Amer 103 mL/min >60 [facility] Comment on above: GFR Calc Glomerular filtration rate ( GFR) estimationOrdered By: Natasha Gregory on 10-28-2024 Estimated GFR (MDRD) Non-Af Amer 86 mL/min >60 [facility] Comment on above: Non- GFR Calc Glucose measurementOrdered B y: Natasha Gregory on 10-28-2024 Glucose [Mass/Vol] 111 mg/dL High 74-106 [facility] Comment on above: Fasting Glucose resu lt from 100 to 125 mg/dL suggests IMPAIRED HOMEOSTASIS per A.D.A. criteria. Hemoglobin A1con 10-28-2024 HbA1c (Bld) [Mass fraction] 6.4 % High 3.8-5.6 [facility] Comment on above: Result Comment: Norm al < 5.7 % Prediabetic 5.7 - 6.4 % Diabetic >or= 6.5 % Please note range changes. Performed By: #### L 501.9985, L500.2500, L501.4405, L3100.1725, L503.0106, L501.4100 #### [facility] [address] [place], [place], [address] Hemoglobin A1c percentageOrd ered By: Natasha Gregory on 10-28-2024 HbA1c (Bld) [Mass fraction] 6.4 % High 3.8-5.6 [facility] Comment on above: Normal < 5.7 % Predi abetic 5.7 - 6.4 % Diabetic >or= 6.5 % Please note range changes. Laboratory - Chemistry and C hemistry - challengeOrdered By: Natasha Gregory on 10-28-2024 AST [Catalytic activity/Vol] 9 U/L Low 15-37 [facility] Potassium measurementOrdered By: Natasha Gregory on 10-28-2024 Potassium [Moles/Vol] 3.4 mmol/L Low 3.5-5.1 [facility] Serum anion gap measurementO rdered By: Natasha Gregory on 10-28-2024 Anion gap [Moles/Vol] 5 mmol/L 5-15 [facility] Serum or plasma alanine max otransferase (ALT) measurementOrdered By: Natasha Gregory on 10-28-2024 ALT [Catalytic activity/Vol] 8 U/L Low 16-61 [facility] Serum or plasma calcium walt urement (mass/volume)Ordered By: Natasha Gregory on 10-28-2024 Calcium [Mass/Vol] 9.3 mg/dL 8.5-10.1 [facility] Serum or plasma creatinine m easurement (mass/volume)Ordered By: Natasha Gregory on 10-28-2024 Creatinine [Mass/Vol] 0.91 mg/dL 0.70-1.30 [facility] Comment on above: The validity of the calculated GFR & GFRAA in patients over 70 years has not been determined. Clinical correlation is essential. Serum or plasma urea nitroge n measurement (mass/volume)Ordered By: Natasha Gregory on 10-28-2024 Urea nitrogen [Mass/Vol] 24 mg/dL High 7-18 [facility] Sodium levelOrdered By: Josefina Gregory on 10-28-2024 Sodium [Moles/Vol] 142 mmol/L 136-145 [facility] Emergency Department Summary on 10-12-2024 Emergency Department Summary [facility] Medical Records Department [address] [place] [address] Emergency Department Summary 10/12/24 MR#: [id number] Acct: [id number] Name: KEVIN GRIFFITH Rep #: [id number] : 1945 79 From: Osman Farooq MD [...] has not been coughing up any blood. [facility] Medical History Parkinson's disease Right bundle branch [...] Reports m (more content not included)... Normal [facility] Ribs Uni Min 3V w/PA Cheston 10-12-2024 Ribs Uni Min 3V w/PA Chest [facility] Imaging Services [address], [place] [address] Ribs Uni Min 3V w/PA Chest MR#: [id number] Acct: [id number] Name: KEVIN GRIFFITH Rep #: [id number] : 1945 M 79 From: Osman Ramos MD PCP: Dr. Ron Cooley MD Status: REG ER Study: Ribs Uni Min 3V w/PA Chest Date of Exam: 10/12 Exam# [id number] Ordering [place]: [place] [id number] STUDY: X-RAY - UNILATERAL RIBS ( LEFT [...] Osman Farooq MD; Dr. Ron Cooley MD [employer] Agent: Signed Normal [facility] Chest PA and Lateralon 09-27 Chest PA and Lateral [facility] Imaging Services [address] [place] [address] Chest PA and Lateral MR#: [id number] Acct: [id number] Name: KEVIN GRIFFITH Rep #: [id number] : 1945 M 79 From: Humberto Perez MD PCP: Dr. Ron Cooley MD Status: [facility] Study: Chest PA and Lateral Date of Exam: 09/27/24 Exam# [id number] Ordering [place]: [place] [id number] STUDY: X-RAY CHEST REASON FOR EXAM: Male, [...] Ron Cooley MD; Dr. Imer Gee MD [employer] Agent: Signed Normal [facility] Modified Barium Swallow Stud yon 09-20-2024 Modified Barium Swallow Study [facility] Speech Pathology [address] [place] [address] Modified Barium Swallow Study MR#: [id number] Acct: [id number] Name: KEVIN GRIFFITH Rep #: [id number] : 1945 79 From: Chayito Barber Modified [...] swallow: Result: 1= does not enter airway [place] Thick Liquid via small single sip: cup: [...] a teaspoon or when prompted by the FREIGHT HUSTLER to take smaller sips. Poor bolus control and delayed pharyn (more content not included)... Normal [facility] MARIAH + Protein Elect, Serumon 09-05-2024 Albumin [Mass/Vol] 3.9 g/dL Normal 2.9-4.4 [facility] Comment on above: Order Comment: LUPE Deleon SEND RESULTS OF B12 AND FOLATES TO Performed By: #### L 501.9985, L500.2500, L501.4405, L3100.1725, L503.0106, L501.4100 #### [facility] [address] [place], [address] Albumin/Globulin [Mass ratio] 1.4 {ratio} Normal 0.7-1.7 [facility] Comment on above: Order Comment: LUPE Deleon SEND RESULTS OF B12 AND FOLATES TO Performed By: #### L 501.9985, L500.2500, L501.4405, L3100.1725, L503.0106, L501.4100 #### [facility] [address] [place], [address] QWNSU-4-ZAQD 0.2 g/dL Normal 0.0-0.4 [facility] Comment on above: Order Comment: LUPE E SEND RESULTS OF B12 AND FOLATES TO Performed By: #### L 501.9985, L500.2500, L501.4405, L3100.1725, L503.0106, L501.4100 #### [facility] [address] [place], [address] ANAGD-2-HBZM 0.8 g/dL Normal 0.4-1.0 [facility] Comment on above: Order Comment: LUPE E SEND RESULTS OF B12 AND FOLATES TO Performed By: #### L 501.9985, L500.2500, L501.4405, L3100.1725, L503.0106, L501.4100 #### [facility] [address] [place], [address] BETA GLOBULIN 0.9 g/dL Normal 0.7-1.3 [facility] Comment on above: Order Comment: [facility] RESULTS OF B12 AND FOLATES TO Performed By: #### L 501.9985, L500.2500, L501.4405, L3100.1725, L503.0106, L501.4100 #### [facility] [address] [place], [address] GAMMA GLOBULIN 0.9 g/dL Normal 0.4-1.8 [facility] Comment on above: Order Comment: [facility] RESULTS OF B12 AND FOLATES TO Performed By: #### L 501.9985, L500.2500, L501.4405, L3100.1725, L503.0106, L501.4100 #### [facility] [address] [place], [address] Globulin (S) [Mass/Vol] 2.8 g/dL Normal 2.2-3.9 [facility] Comment on above: Order Comment: LUPE E SEND RESULTS OF B12 AND FOLATES TO Performed By: #### L 501.9985, L500.2500, L501.4405, L3100.1725, L503.0106, L501.4100 #### [facility] [address] [place], [address] MARIAH RESULT,S Comment Normal . [facility] Comment on above: Order Comment: PLEAS E SEND RESULTS OF B12 AND FOLATES TO Result Comment: No m onoclonality detected. Performed By: #### L 501.9985, L500.2500, L501.4405, L3100.1725, L503.0106, L501.4100 #### [facility] [address] [place], [address] IMMUNOGLOB A QN 171 mg/dL Normal 61-437 [facility] Comment on above: Order Comment: PLEAS E SEND RESULTS OF B12 AND FOLATES TO Performed By: #### L 501.9985, L500.2500, L501.4405, L3100.1725, L503.0106, L501.4100 #### [facility] [address] [place], [address] IMMUNOGLOB G QN 946 mg/dL Normal 603-1613 [facility] Comment on above: Order Comment: PLEAS E SEND RESULTS OF B12 AND FOLATES TO Performed By: #### L 501.9985, L500.2500, L501.4405, L3100.1725, L503.0106, L501.4100 #### [facility] [address] [place], [address] IMMUNOGLOB M QN 100 mg/dL Normal 15-143 [facility] Comment on above: Order Comment: PLEKRISTEN E SEND RESULTS OF B12 AND FOLATES TO Performed By: #### L 501.9985, L500.2500, L501.4405, L3100.1725, L503.0106, L501.4100 #### [facility] [address] [place], [place], [id number] M-Jose Antonio Not Observed Normal Not Observed [facility] Comment on above: Order Comment: LUPE Deleon SEND RESULTS OF B12 AND FOLATES TO Performed By: #### L 501.9985, L500.2500, L501.4405, L3100.1725, L503.0106, L501.4100 #### [facility] [address] [place], [address] NOTE: Comment Normal . [facility] Comment on above: Order Comment: LUPE Deleon SEND RESULTS OF B12 AND FOLATES TO Result Comment: Prot ein electrophoresis scan will follow via computer, mail, or machine technician delivery. Performed By: #### L 501.9985, L500.2500, L501.4405, L3100.1725, L503.0106, L501.4100 #### [facility] [address] [place], [place], [id number] Protein [Mass/Vol] 6.7 g/dL Normal 6.0-8.5 [facility] Comment on above: Order Comment: LUPE Deleon SEND RESULTS OF B12 AND FOLATES TO Performed By: #### L 501.9985, L500.2500, L501.4405, L3100.1725, L503.0106, L501.4100 #### [facility] [address] [place], [address] Immunofixation Urineon 09-05 MARIAH Urine Comment Normal . [facility] Comment on above: Order Comment: LUPE Deleon SEND RESULTS OF B12 AND FOLATES TO Result Comment: No m onoclonality detected. Performed at: [address] [id number] [employer] Trim Operator: Vj Garcia PhD, Phone: [phone] Performed By: #### L 501.9985, L500.2500, L501.4405, L3100.1725, L503.0106, L501.4100 #### [facility] [address] [place], [address] Neurology Visit Reporton Neurology Visit Report [facility] [address] [place] [address] OFFICE VISIT Date of Service: 09/02/24 MR#: [id number] Acct: [id number] Name: KEVIN GRIFFITH Rep #: [id number] : 1945 Provider: Dr. Vick beltran MD Age/Sex: 79/M [place] [facility] 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 Normal [facility] Ankle min 3 Viewson 08-07-20 Ankle min 3 Views [facility] Imaging Services [address] [place] [address] Ankle min 3 Views MR#: [id number] Acct: [id number] Name: KEVIN GRIFFITH Rep #: [id number] : 1945 79 From: Humberto Perez MD PCP: Dr. Ron Cooley MD Status: [facility] Study: Ankle min 3 Views Date of Exam: 08/07/24 Exam# [id number] Ordering [place]: [place] [id number] STUDY: X-RAY - LEFT ANKLE REASON FOR [...] 15:36 EDT Reading Location ID and State: [facility] / [place] , Service support , CC: Dr. Ron Cooley MD [employer] Operations Agent: Signed Normal [facility] Forearm 2 Viewson 08-07-2024 Forearm 2 Views [facility] Imaging Services [address] [place], [place] [address] Forearm 2 Views MR#: [id number] Acct: [id number] Name: KEVIN GRIFFITH Rep #: [id number] : 1945 M 79 From: Humberto Perez MD PCP: Dr. Ron Cooley MD Status: [facility] Study: Forearm 2 Views Date of Exam: 08/07/24 Exam# [id number] Ordering [place]: [place] [id number] STUDY: X-RAY - LEFT RADIUS AND ULNA REASON FOR EXAM: Male, 79 years old. Fall. Pain. TECHNIQUE: 2 view(s) of the forearm. COMPARISON: None. FINDINGS: There is no demonstrated soft tissue swelling. Osteopenia. Normal visualized radius. Plate-screw fixation of the distal fibula in anatomic alignment. RAD/Forearm 2 Views IMPRESSION: No acute abnormality. Electronically Signed: Humberto Perez MD at 15:33 EDT , CC: Dr. Ron Cooley MD [employer] Operations Agent: Signed Normal [facility] Wrist min 3 Viewson 08-07-20 Wrist min 3 Views [facility] Imaging Services [address] [place] [address] Wrist min 3 Views MR#: [id number] Acct: [id number] Name: KEVIN GRIFFITH Rep #: [id number] : 1945 M 79 From: Humberto Perez MD PCP: Dr. Ron Cooley MD Status: REG CLI Study: Wrist min 3 Views Date of Exam: 08/07/24 Exam# [id number] Ordering [place]: [place] [id number] STUDY: X-RAY - LEFT WRIST REASON FOR [...] EDT , CC: Dr. Ron Cooley MD [employer] Agent: Signed Normal [facility] AST(SGOT)on 06-27-2024 AST [Catalytic activity/Vol] 10 U/L Low 15-37 [facility] Comment on above: Performed By: #### L 501.9985, L501.4405, L500.2500, L501.4100, L500.4100, L502.0250, L501.9520 ####[facility] [address] [place], [address] Alanine Aminotransferas (SGP T)on 06-27-2024 ALT [Catalytic activity/Vol] 8 U/L Low 16-61 [facility] Comment on above: Performed By: #### L 501.9985, L501.4405, L500.2500, L501.4100, L500.4100, L502.0250, L501.9520 ####[facility] [address] [place], [address] Basic Metabolic Profile (BMP )on 06-27-2024 BUN/CRE 17.4 RATIO Normal 10-20 [facility] Comment on above: Performed By: #### L 501.9985, L501.4405, L500.2500, L501.4100, L500.4100, L502.0250, L501.9520 ####[facility] [address] [place], [address] CA,Total 8.8 mg/dL Normal 8.5-10.1 [facility] Comment on above: Performed By: #### L 501.9985, L501.4405, L500.2500, L501.4100, L500.4100, L502.0250, L501.9520 ####[facility] [address] [place], [address] Chloride [Moles/Vol] 109 mmol/L High 98-107 [facility] Comment on above: Performed By: #### L 501.9985, L501.4405, L500.2500, L501.4100, L500.4100, L502.0250, L501.9520 ####[facility] [address] [place], [address] CO2 [Moles/Vol] 28.0 mmol/L Normal 21.0-32.0 [facility] Comment on above: Performed By: #### L 501.9985, L501.4405, L500.2500, L501.4100, L500.4100, L502.0250, L501.9520 ####[facility] [address] [place], [place], [address] Creatinine [Mass/Vol] 0.92 mg/dL Normal 0.70-1.30 [facility] Comment on above: Result Comment: The validity of the calculated GFR GFRAA in patients over 70 years has not been determined. Clinical correlation is essential. Performed By: #### L 501.9985, L501.4405, L500.2500, L501.4100, L500.4100, L502.0250, L501.9520 ####[facility] [address] [place], [place], [id number] EST GFR - AA 102 mL/min Normal >60 [facility] Comment on above: Result Comment: Afri can Malagasy GFR Calc Performed By: #### L 501.9985, L501.4405, L500.2500, L501.4100, L500.4100, L502.0250, L501.9520 ####[facility] [address] [place], [place], [id number] GAP 6 Normal 5-15 [facility] Comment on above: Performed By: #### L 501.9985, L501.4405, L500.2500, L501.4100, L500.4100, L502.0250, L501.9520 ####[facility] [address] [place], [place], [id number] GFR/1.73 sq M.predicted among non-blacks MDRD (S/P/Bld) [Vol rate/Area] 84 mL/min/{1.73_m2} Normal >60 [facility] Comment on above: Result Comment: Non- GFR Calc Performed By: #### L 501.9985, L501.4405, L500.2500, L501.4100, L500.4100, L502.0250, L501.9520 ####[facility] [address] [place], [address] Glucose [Mass/Vol] 47 mg/dL Low 74-106 [facility] Comment on above: Result Comment: Gluc ose result less than 50 mg/dL suggests HYPOGLYCEMIA. Performed By: #### L 501.9985, L501.4405, L500.2500, L501.4100, L500.4100, L502.0250, L501.9520 ####[facility] [address] [place], [address] Potassium [Moles/Vol] 3.5 mmol/L Normal 3.5-5.1 [facility] Comment on above: Performed By: #### L 501.9985, L501.4405, L500.2500, L501.4100, L500.4100, L502.0250, L501.9520 ####[facility] [address] [place], [address] Sodium [Moles/Vol] 143 mmol/L Normal 136-145 [facility] Comment on above: Performed By: #### L 501.9985, L501.4405, L500.2500, L501.4100, L500.4100, L502.0250, L501.9520 ####[facility] [address] [place], [address] Urea nitrogen [Mass/Vol] 16 mg/dL Normal 7-18 [facility] Comment on above: Performed By: #### L 501.9985, L501.4405, L500.2500, L501.4100, L500.4100, L502.0250, L501.9520 ####[facility] [address] [place], [address] Cardiology Visit Reporton Cardiology Visit Report [facility] [address] [place] [address] OFFICE VISIT Date of Service: 06/27/24 MR#: [id number] Acct: [id number] Name: KEVIN GRIFFITH Rep #: [id number] : 1945 Provider: Dr. Vladimir Sears MD Age/Sex: 78/M [place] [facility] [place] Status: Signed [facility] History of Present Illness Details: KEVIN [...] Monitor Intake Visit Reasons: 1 Y FU Transplant Case Manager Required: No Accompanied by: Self Is patient [...] you fallen in the past year?: Yes [facility] Medical History Parkinson's disease Right bundle branch [...] well nou (more content not included)... Normal [facility] Hemoglobin A1con 06-27-2024 HbA1c (Bld) [Mass fraction] 6.4 % High 3.8-5.6 [facility] Comment on above: Result Comment: Norm al < 5.7 % Prediabetic 5.7 - 6.4 % Diabetic >or= 6.5 % Please note range changes. Performed By: #### L 501.9985, L501.4405, L500.2500, L501.4100, L500.4100, L502.0250, L501.9520 ####[facility] [address] [place], [address] Lipid Profileon 06-27-2024 Cholesterol [Mass/Vol] 105 mg/dL Normal 200 [facility] Comment on above: Result Comment: <200 mg/dL Desirable 200-240 mg/dL Borderline >240 mg/dL High Risk Performed By: #### L 501.9985, L501.4405, L500.2500, L501.4100, L500.4100, L502.0250, L501.9520 ####[facility] [address] [place], [address] Cholesterol in HDL [Mass/Vol] 45 mg/dL Normal [facility] Comment on above: Result Comment: The drugs N-Acetylcysteine and Metamizole may falsely depress this assay. Reference Range HDL <40 mg/dL Low HDL Cholesterol HDL >or= 60 mg/dL High HDL Cholesterol Performed By: #### L 501.9985, L501.4405, L500.2500, L501.4100, L500.4100, L502.0250, L501.9520 ####[facility] [address] [place], [address] Cholesterol in LDL [Mass/Vol] 40 mg/dL Normal 0-130 [facility] Comment on above: Performed By: #### L 501.9985, L501.4405, L500.2500, L501.4100, L500.4100, L502.0250, L501.9520 ####[facility] [address] [place], [address] Cholesterol in VLDL [Mass/Vol] 20 mg/dL Normal 5-40 [facility] Comment on above: Performed By: #### L 501.9985, L501.4405, L500.2500, L501.4100, L500.4100, L502.0250, L501.9520 ####[facility] [address] [place], [address] Triglyceride [Mass/Vol] 99 mg/dL Normal [facility] Comment on above: Result Comment: The drugs N-Acetylcysteine and Metamizole may falsely depress this assay. Serum Triglycerides Reference Interval Normal <150 mg/dL Borderline high 150 - 199 mg/dL High 200 - 499 mg/dL Very High > or = 500 mg/dL Performed By: #### L 501.9985, L501.4405, L500.2500, L501.4100, L500.4100, L502.0250, L501.9520 ####[facility] [address] [place], [address] Microalb:Creat Ratio,Random URon 06-27-2024 MALB:CRE Normal <30 mg/g CRE [facility] Comment on above: Result Comment: VIKTOR ENT COULD NOT GIVE SAMPLE Performed By: #### L 501.9985, L501.4405, L500.2500, L501.4100, L500.4100, L502.0250, L501.9520 ####[facility] [address] [place], [address] MICROALBUMIN,UR Normal NO RANGE EST. [facility] Comment on above: Result Comment: VIKTOR ENT COULD NOT GIVE SAMPLE Performed By: #### L 501.9985, L501.4405, L500.2500, L501.4100, L500.4100, L502.0250, L501.9520 ####[facility] [address] [place], [address] UR CREAT Normal NO RANGE EST. [facility] Comment on above: Result Comment: VIKTOR ENT COULD NOT GIVE SAMPLE Performed By: #### L 501.9985, L501.4405, L500.2500, L501.4100, L500.4100, L502.0250, L501.9520 ####[facility] [address] [place], [place], [id number] Thyroid Stim Hormone (TSH)on 06-27-2024 TSH 1.99 uIU/mL Normal 0.358-3.74 [facility] Comment on above: Performed By: #### L 501.9985, L501.4405, L500.2500, L501.4100, L500.4100, L502.0250, L501.9520 ####[facility] [address] [place], [place], [id number] PSA,Total- Diagnosticon 07-2 PSA, DIAGNOSTIC 0.50 ng/mL Normal 0.0-4.0 [facility] Comment on above: Result Comment: This test was performed using the TPSA assay method for the Impulsiv chemistry system. Values obtained with different assay methods cannot be used interchangably. When changing PSA assays in the course of monitoring a patient, additional sequential testing should be carried out to confirm baseline values. Performed By: #### L 501.9985, L500.2500, L501.4405, L3100.1725, L503.0106, L501.4100 #### [facility] [address] [place], [address] Basophil percentageOrdered B y: Vick Santo on 03-25-2024 Bilirubin [Mass/Vol] 0.70 mg/dL 0.20-1.00 [facility] Comment on above: For patients on eltr ombopag therapy, use of Dimension Leupp TBIL is not recommended. Chloride [Moles/Vol] 104 mmol/L 98-107 [facility] Glucose [Mass/Vol] 260 mg/dL 74-106 [facility] Comment on above: Glucose result great er than or equal to 200 mg/dLsuggests DIABETES MELLITUS per A.D.A. criteria. Potassium [Moles/Vol] 3.9 mmol/L 3.5-5.1 [facility] Protein [Mass/Vol] 6.8 g/dL 6.4-8.2 [facility] Sodium [Moles/Vol] 138 mmol/L 136-145 [facility] - Chemistry and C hemistry - challengeOrdered By: Vick Santo on 03-25-2024 Albumin/Globulin [Mass ratio] 1.1 {ratio} 0.9-2.4 [facility] ALP [Catalytic activity/Vol] 62 U/L 45-117 [facility] ALT [Catalytic activity/Vol] 13 U/L 16-61 [facility] CO2 [Moles/Vol] 28.0 mmol/L 21.0-32.0 [facility] Globulin (S) [Mass/Vol] 3.3 g/dL 2.2-4.2 [facility] Urea nitrogen/Creatinine [Mass ratio] 23.8 mg/mg 10-20 [facility] No Panel InformationOrdered By: Vick Santo on 03-25-2024 Estimated GFR (MDRD) Amer 92 mL/min >60 [facility] Comment on above: GFR Calc Estimated GFR (MDRD) Non-Af Amer 76 mL/min >60 [facility] Comment on above: Non- GFR Calc Serum or plasma calcium walt urement (mass/volume)Ordered By: Vick Santo on 03-25-2024 Calcium [Mass/Vol] 8.9 mg/dL 8.5-10.1 [facility] Serum or plasma creatinine m easurement (mass/volume)Ordered By: Vick Santo on 03-25-2024 Creatinine [Mass/Vol] 1.01 mg/dL 0.70-1.30 [facility] Comment on above: The validity of the calculated GFR & GFRAA in patients over 70 years has not been determined. Clinical correlation is essential. Serum or plasma urea nitroge n measurement (mass/volume)Ordered By: Vick Santo on 03-25-2024 Urea nitrogen [Mass/Vol] 24 mg/dL 7-18 [facility] Thin prep Papanicolaou smear with manual screeningOrdered By: Vickrobinson Santo on 03-25-2024 Thin prep Papanicolaou smear with manual screening 3.5 g/dL 3.2-5.0 [facility] Thin prep Papanicolaou smear with manual screening 11 U/L 15-37 [facility] Thin prep Papanicolaou smear with manual screening 6 5-15 [facility] Whole blood hemoglobin A1c/t otal hemoglobin ratio (mass fraction)Ordered By: Vick Santo on 03-25-2024 HbA1c (Bld) [Mass fraction] 6.1 % 3.8-5.6 [facility] Comment on above: Normal < 5.7 % Predi abetic 5.7 - 6.4 % Diabetic >or= 6.5 % Please note range changes. Basophil percentageOrdered B y: Ron Cooley on 02-27-2024 Chloride [Moles/Vol] 106 mmol/L 98-107 [facility] Glucose [Mass/Vol] 94 mg/dL 74-106 [facility] Potassium [Moles/Vol] 3.9 mmol/L 3.5-5.1 [facility] Sodium [Moles/Vol] 141 mmol/L 136-145 [facility] - Chemistry and C hemistry - challengeOrdered By: Ron Cooley on 02-27-2024 ALT [Catalytic activity/Vol] 14 U/L 16-61 [facility] CO2 [Moles/Vol] 28.0 mmol/L 21.0-32.0 [facility] Urea nitrogen/Creatinine [Mass ratio] 22.1 mg/mg 10-20 [facility] No Panel InformationOrdered By: Ron Cooley on 02-27-2024 Estimated GFR (MDRD) Amer 104 mL/min >60 [facility] Comment on above: GFR Calc Estimated GFR (MDRD) Non-Af Amer 86 mL/min >60 [facility] Comment on above: Non- GFR Calc Serum or plasma calcium walt urement (mass/volume)Ordered By: Ron Cooley on 02-27-2024 Calcium [Mass/Vol] 9.3 mg/dL 8.5-10.1 [facility] Serum or plasma creatinine m easurement (mass/volume)Ordered By: Ron Cooley on 02-27-2024 Creatinine [Mass/Vol] 0.90 mg/dL 0.70-1.30 [facility] Comment on above: The validity of the calculated GFR & GFRAA in patients over 70 years has not been determined. Clinical correlation is essential. Serum or plasma urea nitroge n measurement (mass/volume)Ordered By: Ron Cooley on 02-27-2024 Urea nitrogen [Mass/Vol] 20 mg/dL 7-18 [facility] Thin prep Papanicolaou smear with manual screeningOrdered By: Ron Cooley on 02-27-2024 Thin prep Papanicolaou smear with manual screening 15 U/L 15-37 [facility] Thin prep Papanicolaou smear with manual screening 7 5-15 [facility] Whole blood hemoglobin A1c/t otal hemoglobin ratio (mass fraction)Ordered By: Ron Cooley on 02-27-2024 HbA1c (Bld) [Mass fraction] 6.1 % 3.8-5.6 [facility] Comment on above: Normal < 5.7 % Predi abetic 5.7 - 6.4 % Diabetic >or= 6.5 % Please note range changes. Absolute lymphocyte countOrd ered By: Ron Cooley on 12-15-2023 Lymphocytes Auto (Unsp spec) [#/Vol] 3.13 10*3/uL 0.83-4.51 [facility] Automated lymphocyte count a s percentage of total leukocytesOrdered By: Ron Shepparddelia on 12-15-2023 Lymphocytes/100 WBC Auto (Unsp spec) 38.1 % 19-41 [facility] Basophil percentageOrdered B y: Ron Shepparddelia on 12-15-2023 Basophils/100 WBC (Bld) 0.7 % 0-1 [facility] Bilirubin [Mass/Vol] 0.80 mg/dL 0.20-1.00 [facility] Comment on above: For patients on eltr ombopag therapy, use of Dimension Leupp TBIL is not recommended. Chloride [Moles/Vol] 107 mmol/L 98-107 [facility] Cholesterol [Mass/Vol] 136 mg/dL <200 [facility] Comment on above: <200 mg/dL Desirable 200-240 mg/dL Borderline >240 mg/dL High Risk Eosinophils/100 WBC (Bld) 1.8 % 0-5 [facility] Glucose [Mass/Vol] 87 mg/dL 74-106 [facility] Hemoglobin (Bld) [Mass/Vol] 15.3 g/dL 13.0-16.5 [facility] Monocytes/100 WBC (Bld) 10.5 % 0-10 [facility] Neutrophils (Bld) [#/Vol] 4.0 10*3/uL 2.0-7.7 [facility] Neutrophils/100 WBC (Bld) 48.4 % 47-70 [facility] Potassium [Moles/Vol] 3.7 mmol/L 3.5-5.1 [facility] Protein [Mass/Vol] 7.2 g/dL 6.4-8.2 [facility] Sodium [Moles/Vol] 140 mmol/L 136-145 [facility] Triglyceride [Mass/Vol] 127 mg/dL <199 [facility] Comment on above: The drugs N-Acetylcy steine and Metamizole may falsely depress this assay.Serum Triglycerides Reference Interval Normal <150 mg/dL Borderline high 150 - 199 mg/dL High 200 - 499 mg/dL Very High > or = 500 mg/dL WBC (Bld) [#/Vol] 8.2 10*3/uL 4.4-11.0 [facility] Determination of erythrocyte mean corpuscular volume (MCV)Ordered By: Ron Cooley on 12-15-2023 MCV (RBC) [Entitic vol] 90.0 fL 80-94 [facility] Erythrocyte distribution wid th ratioOrdered By: Ron Cooley on 12-15-2023 Erythrocyte distribution width (RBC) [Ratio] 13.2 % 11.6-14.6 [facility] Erythrocyte distribution wid th standard deviationOrdered By: Ron Cooley on 12-15-2023 Erythrocyte distribution width (RBC) [Entitic vol] 43.5 fL 35.1-43.9 [facility] Hematocrit Auto (Bld) [Volum e fraction]Ordered By: Ron Cooley on 12-15-2023 Hematocrit (Bld) [Volume fraction] 46.1 % 40-54 [facility] High density lipoprotein (HD L) measurementOrdered By: Ron Cooley on 12-15-2023 Cholesterol in HDL (Body fld) [Mass/Vol] 50 mg/dL >40 [facility] Comment on above: The drugs N-Acetylcy steine and Metamizole may falsely depress this assay. Reference Range HDL <40 mg/dL Low HDL Cholesterol HDL >or= 60 mg/dL High HDL Cholesterol Immature granulocytes/100 WB C Auto (Bld)Ordered By: Ron Cooley on 12-15-2023 Immature granulocytes/100 WBC (Bld) 0.500 % 0.0-0.9 [facility] Comment on above: IG% - Immature Granu locytes (promyelocytes, myelocytes and metamyelocytes) > 1% indicates that a LEFT SHIFT is Present. Laboratory - Chemistry and C hemistry - challengeOrdered By: Ron Cooley on 12-15-2023 Albumin/Globulin [Mass ratio] 1.1 {ratio} 0.9-2.4 [facility] ALP [Catalytic activity/Vol] 67 U/L 45-117 [facility] ALT [Catalytic activity/Vol] 12 U/L 16-61 [facility] CO2 [Moles/Vol] 29.0 mmol/L 21.0-32.0 [facility] Globulin (S) [Mass/Vol] 3.5 g/dL 2.2-4.2 [facility] Magnesium [Mass/Vol] 1.9 mg/dL 1.6-2.6 [facility] Urea nitrogen/Creatinine [Mass ratio] 19.3 mg/mg 10-20 [facility] Laboratory - Hematology and Cell countsOrdered By: Ron Cooley on 12-15-2023 MCH (RBC) [Entitic mass] 29.9 pg 27.0-32.0 [facility] MCHC (RBC) [Mass/Vol] 33.2 g/dL 32-36 [facility] Nucleated RBC/100 WBC (Bld) [Ratio] 0 % 0-5 [facility] Platelets (Bld) [#/Vol] 240 10*3/uL 150-450 [facility] Low density lipoprotein (LDL ) cholesterol measurementOrdered By: Ron Cooley on 12-15-2023 Cholesterol in LDL (Body fld) [Moles/Vol] 61 mg/dL 0-130 [facility] No Panel InformationOrdered By: Ron Cooley on 12-15-2023 Estimated GFR (MDRD) Amer 101 mL/min >60 [facility] Comment on above: GFR Calc Estimated GFR (MDRD) Non-Af Amer 83 mL/min >60 [facility] Comment on above: Non- GFR Calc Platelet mean volume [place] (Bld) [Entitic vol]Ordered By: Ron Cooley on 12-15-2023 Platelet mean volume (Bld) [Entitic vol] 11.1 fL 6.2-12.0 [facility] RBC Auto (Bld) [#/Vol]Ordere d By: Ron Cooley on 12-15-2023 RBC (Bld) [#/Vol] 5.12 10*6/uL 4.6-6.2 [facility] Serum or plasma calcium walt urement (mass/volume)Ordered By: Ron Cooley on 12-15-2023 Calcium [Mass/Vol] 9.2 mg/dL 8.5-10.1 [facility] Serum or plasma creatinine m easurement (mass/volume)Ordered By: Ron Cooley on 12-15-2023 Creatinine [Mass/Vol] 0.93 mg/dL 0.70-1.30 [facility] Comment on above: The validity of the calculated GFR & GFRAA in patients over 70 years has not been determined. Clinical correlation is essential. Serum or plasma thyroid stim ulating hormone (TSH) measurement (units/volume)Ordered By: Ron Cooley on 12-15-2023 TSH Qn 1.60 uIU/mL 0.358-3.74 [facility] Serum or plasma urea nitroge n measurement (mass/volume)Ordered By: Ron Cooley on 12-15-2023 Urea nitrogen [Mass/Vol] 18 mg/dL 7-18 [facility] Thin prep Papanicolaou smear with manual screeningOrdered By: Ron Cooley on 12-15-2023 Thin prep Papanicolaou smear with manual screening 3.7 g/dL 3.2-5.0 [facility] Thin prep Papanicolaou smear with manual screening 14 U/L 15-37 [facility] Thin prep Papanicolaou smear with manual screening 4 5-15 [facility] Very low density lipoprotein (VLDL) cholesterol measurementOrdered By: Ron Cooley on 12-15-2023 Cholesterol in VLDL Calc [Moles/Vol] 25 mg/dL 5-40 [facility] Whole blood hemoglobin A1c/t otal hemoglobin ratio (mass fraction)Ordered By: Ron Cooley on 12-15-2023 HbA1c (Bld) [Mass fraction] 5.9 % 3.8-5.6 [facility] Comment on above: Normal < 5.7 % Predi abetic 5.7 - 6.4 % Diabetic >or= 6.5 % Please note range changes. Albumin Elph [Mass/Vol]Order ed By: Vick Santo on 11-23-2023 Albumin [Mass/Vol] 3.6 g/dL 2.9-4.4 [facility] Basophil percentageOrdered B y: Vick Santo on 11-23-2023 Basophil percentage Comment: . [facility] Comment on above: Presence of monoclon al protein is unclear at this time. Suggestrepeat in 3 to 6 months if clinically indicated.Performed at: - [facility] [id number] Director: Vj Garcia PhD, Phone: [phone] Interpretation of serum or p lasma protein pattern by immunofixation (narrative resultOrdered By: Vick Santo on 11-23-2023 Protein Fractions Immunofixation Blanco [Interp] Not Observed g/dL Not Observed [facility] No Panel InformationOrdered By: Vick Santo on 11-23-2023 Addendum Document Comment . [facility] Comment on above: Protein electrophore sis scan will follow via computer,mail, or machine technician delivery. Serum [id number] measu rement by electrophoresisOrdered By: Vick Santo on 11-23-2023 Alpha 1 globulin Elph [Mass/Vol] 0.4 g/dL 0.0-0.4 [facility] Alpha 1 globulin Elph [Mass/Vol] 1.0 g/dL 0.4-1.0 [facility] Serum globulin measurement ( mass/volume)Ordered By: Vick Santo on 11-23-2023 Globulin (S) [Mass/Vol] 3.1 g/dL 2.2-3.9 [facility] Serum or plasma IgA measurem ent (mass/volume)Ordered By: Vick Santo on 11-23-2023 IgA [Mass/Vol] 167 mg/dL 61-437 [facility] Serum or plasma IgG measurem ent (mass/volume)Ordered By: Vick Santo on 11-23-2023 IgG [Mass/Vol] 849 mg/dL [id number] [facility] Serum or plasma IgM measurem ent (mass/volume)Ordered By: Vick Santo on 11-23-2023 IgM [Mass/Vol] 91 mg/dL 15-143 [facility] Serum or plasma beta globuli n measurement by electrophoresis (mass/volume)Ordered By: Vick Santo on 11-23-2023 Beta globulin Elph [Mass/Vol] 1.0 g/dL 0.7-1.3 [facility] Serum or plasma gamma globul in measurement by electrophoresis (mass/volume)Ordered By: Vick Santo on 11-23-2023 Gamma globulin Elph [Mass/Vol] 0.7 g/dL 0.4-1.8 [facility] Serum or plasma immunoelectr ophoresis interpretation (nominal result)Ordered By: Vick Santo on 11-23-2023 Interpretation IEP [Interp] Comment . [facility] Comment on above: No monoclonality det ected. Thin prep Papanicolaou smear with manual screeningOrdered By: Vick Santo on 11-23-2023 Thin prep Papanicolaou smear with manual screening 1.2 0.7-1.7 [facility] Total protein bloodOrdered B y: Vick Santo on 11-23-2023 Protein [Mass/Vol] 6.7 g/dL 6.0-8.5 [facility] Basophil percentageOrdered B y: Natasha Gregory on 10-31-2023 Chloride [Moles/Vol] 107 mmol/L 98-107 [facility] [place] Glucose [Mass/Vol] 102 mg/dL 74-106 [facility] Comment on above: Fasting Glucose resu lt from 100 to 125 mg/dL suggests IMPAIRED HOMEOSTASIS per A.D.A. criteria. Potassium [Moles/Vol] 3.6 mmol/L 3.5-5.1 [facility] Sodium [Moles/Vol] 142 mmol/L 136-145 [facility] Laboratory - Chemistry and C hemistry - challengeOrdered By: Natasha Gregory on 10-31-2023 ALT [Catalytic activity/Vol] 11 U/L 16-61 [facility] CO2 [Moles/Vol] 28.0 mmol/L 21.0-32.0 [facility] Urea nitrogen/Creatinine [Mass ratio] 22.7 mg/mg 10-20 [facility] No Panel InformationOrdered By: Natasha Gregory on 10-31-2023 Estimated GFR (MDRD) Amer 101 mL/min >60 [facility] Comment on above: GFR Calc Estimated GFR (MDRD) Non-Af Amer 84 mL/min >60 [facility] Comment on above: Non- GFR Calc Serum or plasma calcium walt urement (mass/volume)Ordered By: Natasha Gregory on 10-31-2023 Calcium [Mass/Vol] 8.8 mg/dL 8.5-10.1 [facility] Serum or plasma creatinine m easurement (mass/volume)Ordered By: Natasha Gregory on 10-31-2023 Creatinine [Mass/Vol] 0.93 mg/dL 0.70-1.30 [facility] Comment on above: The validity of the calculated GFR & GFRAA in patients over 70 years has not been determined. Clinical correlation is essential. Serum or plasma urea nitroge n measurement (mass/volume)Ordered By: Natasha Gregory on 10-31-2023 Urea nitrogen [Mass/Vol] 21 mg/dL 7-18 [facility] Thin prep Papanicolaou smear with manual screeningOrdered By: Natasha Gregory on 10-31-2023 Thin prep Papanicolaou smear with manual screening 10 U/L 15-37 [facility] Thin prep Papanicolaou smear with manual screening 7 5-15 [facility] Whole blood hemoglobin A1c/t otal hemoglobin ratio (mass fraction)Ordered By: Natasha Gregory on 10-31-2023 HbA1c (Bld) [Mass fraction] 5.7 % 3.8-5.6 [facility] Comment on above: Normal < 5.7 % Predi abetic 5.7 - 6.4 % Diabetic >or= 6.5 % Please note range changes. Basophil percentageOrdered B y: Natasha Gregory on 08-03-2023 Chloride [Moles/Vol] 108 mmol/L 98-107 [facility] Cholesterol [Mass/Vol] 127 mg/dL <200 [facility] Comment on above: <200 mg/dL Desirable 200-240 mg/dL Borderline >240 mg/dL High Risk Glucose [Mass/Vol] 66 mg/dL 74-106 [facility] Potassium [Moles/Vol] 3.5 mmol/L 3.5-5.1 [facility] Sodium [Moles/Vol] 139 mmol/L 136-145 [facility] Triglyceride [Mass/Vol] 101 mg/dL <199 [facility] Comment on above: The drugs N-Acetylcy steine and Metamizole may falsely depress this assay.Serum Triglycerides Reference Interval Normal <150 mg/dL Borderline high 150 - 199 mg/dL High 200 - 499 mg/dL Very High > or = 500 mg/dL Laboratory - Chemistry and C hemistry - challengeOrdered By: Natasha Gregory on 08-03-2023 ALT [Catalytic activity/Vol] 11 U/L 16-61 [facility] CO2 [Moles/Vol] 26.0 mmol/L 21.0-32.0 [facility] Urea nitrogen/Creatinine [Mass ratio] 19.8 mg/mg 10-20 [facility] No Panel InformationOrdered By: Natasha Gregory on 08-03-2023 Urine Microalbumin/Creatinine Ratio 14.9 mg/g CRE <30 [facility] Estimated GFR (MDRD) Amer 97 mL/min >60 [facility] Comment on above: GFR Calc Estimated GFR (MDRD) Non-Af Amer 81 mL/min >60 [facility] Comment on above: Non- GFR Calc Thyroid Stimulating Hormone (TSH) 1.96 uIU/mL 0.358-3.74 [facility] Serum or plasma calcium walt urement (mass/volume)Ordered By: Natasha Gregory on 08-03-2023 Calcium [Mass/Vol] 9.0 mg/dL 8.5-10.1 [facility] Serum or plasma cholesterol in HDL measurement (mass/volume)Ordered By: Natasha Gregory on 08-03-2023 Cholesterol in HDL [Mass/Vol] 49 mg/dL >40 [facility] Comment on above: The drugs N-Acetylcy steine and Metamizole may falsely depress this assay. Reference Range HDL <40 mg/dL Low HDL Cholesterol HDL >or= 60 mg/dL High HDL Cholesterol Serum or plasma cholesterol in VLDL measurement (mass/volume)Ordered By: Natasha Gregory on 08-03-2023 Cholesterol in VLDL [Mass/Vol] 20 mg/dL 5-40 [facility] Serum or plasma creatinine m easurement (mass/volume)Ordered By: Natasha Gregory on 08-03-2023 Creatinine [Mass/Vol] 0.96 mg/dL 0.70-1.30 [facility] Comment on above: The validity of the calculated GFR & GFRAA in patients over 70 years has not been determined. Clinical correlation is essential. Serum or plasma low density lipoprotein (LDL) cholesterol measurement (mass/volume)Ordered By: Natasha Gregory on 08-03-2023 Cholesterol in LDL [Mass/Vol] 58 mg/dL 0-130 [facility] Serum or plasma urea nitroge n measurement (mass/volume)Ordered By: Natasha Gregory on 08-03-2023 Urea nitrogen [Mass/Vol] 19 mg/dL 7-18 [facility] Thin prep Papanicolaou smear with manual screeningOrdered By: Natasha Gregory on 08-03-2023 Thin prep Papanicolaou smear with manual screening 18.2 mg/L NO RANGE EST. [facility] Thin prep Papanicolaou smear with manual screening 9 U/L 15-37 [facility] Thin prep Papanicolaou smear with manual screening 5 5-15 [facility] Urine creatinine measurement (mass/volume)Ordered By: Natasha Gregory on 08-03-2023 Creatinine (U) [Mass/Vol] 122.00 mg/dL NO RANGE EST. [facility] Whole blood hemoglobin A1c/t otal hemoglobin ratio (mass fraction)Ordered By: Natasha Gregory on 08-03-2023 HbA1c (Bld) [Mass fraction] 6.2 % 3.8-5.6 [facility] Comment on above: Normal < 5.7 % Predi abetic 5.7 - 6.4 % Diabetic >or= 6.5 % Please note range changes. Basophil percentageOrdered B y: Dr. Santo on 05-09-2023 WBC (Bld) [#/Vol] 10.2 10*3/uL 4.4-11.0 [facility] Blood erythrocytes count (nu mber/volume)Ordered By: Dr. Santo on 05-09-2023 RBC (Bld) [#/Vol] 4.60 10*6/uL 4.6-6.2 [facility] Blood hemoglobin measurement (mass/volume)Ordered By: Dr. Santo on 05-09-2023 Hemoglobin (Bld) [Mass/Vol] 14.1 g/dL 13.0-16.5 [facility] Blood platelet mean volumeOr dered By: Dr. Santo on 05-09-2023 Platelet mean volume (Bld) [Entitic vol] 10.7 fL 6.2-12.0 [facility] Determination of erythrocyte mean corpuscular volume (MCV)Ordered By: Dr. Santo on 05-09-2023 MCV (RBC) [Entitic vol] 90.9 fL 80-94 [facility] Hematocrit Auto (Bld) [Volum e fraction]Ordered By: Dr. Santo on 05-09-2023 Hematocrit (Bld) [Volume fraction] 41.8 % 40-54 [facility] Laboratory - Chemistry and C hemistry - challengeOrdered By: Dr. Santo on 05-09-2023 Cobalamin (Vitamin B12) [Mass/Vol] 281 pg/mL 211-911 [facility] Laboratory - Hematology and Cell countsOrdered By: Dr. Santo on 05-09-2023 Erythrocyte distribution width (RBC) [Entitic vol] 44.1 fL 35.1-43.9 [facility] Erythrocyte distribution width (RBC) [Ratio] 13.3 % 11.6-14.6 [facility] MCH (RBC) [Entitic mass] 30.7 pg 27.0-32.0 [facility] MCHC Auto (RBC) [Mass/Vol]Or dered By: Dr. Santo on 05-09-2023 MCHC (RBC) [Mass/Vol] 33.7 g/dL 32-36 [facility] No Panel InformationOrdered By: Vick Santo on 05-09-2023 Free Lambda Light Chains, Quant 20.2 mg/L 5.7-26.3 [facility] Whole Blood Vitamin B1 Level 118.1 nmol/L 66.5-200.0 [facility] Comment on above: Performed at: - [address] [id number] Director: Vj Garcia PhD, Phone: [phone] at: [facility] [id number] Director: Sherine Mendez MD, Phone: [phone] No Panel InformationOrdered By: Dr. Santo on 05-09-2023 Thyroid Stimulating Hormone (TSH) 2.11 uIU/mL 0.358-3.74 [facility] Platelets bldOrdered By: Dr. Santo on 05-09-2023 Platelets (Bld) [#/Vol] 285 10*3/uL 150-450 [facility] Serum immunoglobulin kappa l ight chains/immunoglobulin lambda light chains mass ratioOrdered By: Vick Santo on 05-09-2023 Immunoglobulin light chains.kappa/Immunoglobul in light chains.lambda (S) [Mass ratio] 1.69 0.26-1.65 [facility] Serum or plasma folate measu rement (mass/volume)Ordered By: Dr. Santo on 05-09-2023 Folate [Mass/Vol] 11.40 ng/mL 3.1-55.4 [facility] Serum or plasma immunoglobul in kappa light chains measurement (mass/volume)Ordered By: Vick Santo on 05-09-2023 Immunoglobulin light chains.kappa [Mass/Vol] 34.1 mg/L 3.3-19.4 [facility] Basophil percentageOrdered B y: Dr. Gregory on 05-01-2023 Chloride [Moles/Vol] 107 mmol/L 98-107 [facility] Glucose [Mass/Vol] 98 mg/dL 74-106 [facility] Potassium [Moles/Vol] 3.8 mmol/L 3.5-5.1 [facility] Sodium [Moles/Vol] 140 mmol/L 136-145 [facility] Laboratory - Chemistry and C hemistry - challengeOrdered By: Dr. Gregory on 05-01-2023 ALT [Catalytic activity/Vol] 13 U/L 16-61 [facility] CO2 [Moles/Vol] 26.0 mmol/L 21.0-32.0 [facility] Urea nitrogen/Creatinine [Mass ratio] 23.4 mg/mg 10-20 [facility] No Panel InformationOrdered By: Dr. Gregory on 05-01-2023 Estimated GFR (MDRD) Amer 95 mL/min >60 [facility] Comment on above: GFR Calc Estimated GFR (MDRD) Non-Af Amer 78 mL/min >60 [facility] Comment on above: Non- GFR Calc Serum or plasma calcium walt urement (mass/volume)Ordered By: Dr. Gregory on 05-01-2023 Calcium [Mass/Vol] 9.0 mg/dL 8.5-10.1 [facility] Serum or plasma creatinine m easurement (mass/volume)Ordered By: Dr. Gregory on 05-01-2023 Creatinine [Mass/Vol] 0.98 mg/dL 0.70-1.30 [facility] Comment on above: The validity of the calculated GFR & GFRAA in patients over 70 years has not been determined. Clinical correlation is essential. Serum or plasma urea nitroge n measurement (mass/volume)Ordered By: Dr. Gregory on 05-01-2023 Urea nitrogen [Mass/Vol] 23 mg/dL 7-18 [facility] Thin prep Papanicolaou smear with manual screeningOrdered By: Dr. Gregory on 05-01-2023 Thin prep Papanicolaou smear with manual screening 12 U/L 15-37 [facility] Thin prep Papanicolaou smear with manual screening 7 5-15 [facility] Whole blood hemoglobin A1c/t otal hemoglobin ratio (mass fraction)Ordered By: Dr. Gregory on 05-01-2023 HbA1c (Bld) [Mass fraction] 6.2 % 3.8-5.6 [facility] Comment on above: Normal < 5.7 % Predi abetic 5.7 - 6.4 % Diabetic >or= 6.5 % Please note range changes. Absolute lymphocyte countOrd ered By: Dr. Cooley on 02-21-2023 Lymphocytes Auto (Unsp spec) [#/Vol] 3.36 10*3/uL 0.83-4.51 [facility] Basophil percentageOrdered B y: Dr. Cooley on 02-21-2023 Basophils/100 WBC (Bld) 0.7 % 0-1 [facility] Bilirubin [Mass/Vol] 0.60 mg/dL 0.20-1.00 [facility] Comment on above: For patients on eltr ombopag therapy, use of Dimension Leupp TBIL is not recommended. Chloride [Moles/Vol] 104 mmol/L 98-107 [facility] Cholesterol [Mass/Vol] 133 mg/dL <200 [facility] Comment on above: <200 mg/dL Desirable 200-240 mg/dL Borderline >240 mg/dL High Risk Eosinophils/100 WBC (Bld) 1.5 % 0-5 [facility] Glucose [Mass/Vol] 232 mg/dL 74-106 [facility] Comment on above: Glucose result great er than or equal to 200 mg/dLsuggests DIABETES MELLITUS per A.D.A. criteria. Neutrophils (Bld) [#/Vol] 5.4 10*3/uL 2.0-7.7 [facility] Neutrophils/100 WBC (Bld) 53.2 % 47-70 [facility] Potassium [Moles/Vol] 4.0 mmol/L 3.5-5.1 [facility] Protein [Mass/Vol] 6.8 g/dL 6.4-8.2 [facility] Sodium [Moles/Vol] 137 mmol/L 136-145 [facility] Triglyceride [Mass/Vol] 117 mg/dL <199 [facility] Comment on above: The drugs N-Acetylcy steine and Metamizole may falsely depress this assay.Serum Triglycerides Reference Interval Normal <150 mg/dL Borderline high 150 - 199 mg/dL High 200 - 499 mg/dL Very High > or = 500 mg/dL WBC (Bld) [#/Vol] 10.1 10*3/uL 4.4-11.0 [facility] Blood erythrocytes count (nu mber/volume)Ordered By: Dr. Cooley on 02-21-2023 RBC (Bld) [#/Vol] 4.56 10*6/uL 4.6-6.2 [facility] Blood hemoglobin measurement (mass/volume)Ordered By: Dr. Cooley on 02-21-2023 Hemoglobin (Bld) [Mass/Vol] 14.0 g/dL 13.0-16.5 [facility] Blood lymphocytes/100 leukoc ytesOrdered By: Dr. Cooley on 02-21-2023 Lymphocytes/100 WBC (Bld) 33.3 % 19-41 [facility] Blood monocytes/100 leukocyt esOrdered By: Dr. Cooley on 02-21-2023 Monocytes/100 WBC (Bld) 10.4 % 0-10 [facility] Blood platelet mean volumeOr dered By: Dr. Cooley on 02-21-2023 Platelet mean volume (Bld) [Entitic vol] 10.2 fL 6.2-12.0 [facility] Determination of erythrocyte mean corpuscular volume (MCV)Ordered By: Dr. Cooley on 02-21-2023 MCV (RBC) [Entitic vol] 92.5 fL 80-94 [facility] Hematocrit Auto (Bld) [Volum e fraction]Ordered By: Dr. Cooley on 02-21-2023 Hematocrit (Bld) [Volume fraction] 42.2 % 40-54 [facility] Laboratory - Chemistry and C hemistry - challengeOrdered By: Dr. Cooley on 02-21-2023 ALP [Catalytic activity/Vol] 68 U/L 45-117 [facility] ALT [Catalytic activity/Vol] 19 U/L 16-61 [facility] CO2 [Moles/Vol] 27.0 mmol/L 21.0-32.0 [facility] Globulin (S) [Mass/Vol] 3.4 g/dL 2.2-4.2 [facility] Magnesium [Mass/Vol] 1.9 mg/dL 1.6-2.6 [facility] Urea nitrogen/Creatinine [Mass ratio] 27.1 mg/mg 10-20 [facility] Laboratory - Hematology and Cell countsOrdered By: Dr. Cooley on 02-21-2023 Erythrocyte distribution width (RBC) [Entitic vol] 47.2 fL 35.1-43.9 [facility] Erythrocyte distribution width (RBC) [Ratio] 14.0 % 11.6-14.6 [facility] Immature granulocytes/100 WBC (Bld) 0.900 % 0.0-0.9 [facility] Comment on above: IG% - Immature Granu locytes (promyelocytes, myelocytes and metamyelocytes) > 1% indicates that a LEFT SHIFT is Present. MCH (RBC) [Entitic mass] 30.7 pg 27.0-32.0 [facility] Nucleated RBC/100 WBC (Bld) [Ratio] 0 % 0-5 [facility] MCHC Auto (RBC) [Mass/Vol]Or dered By: Dr. Cooley on 02-21-2023 MCHC (RBC) [Mass/Vol] 33.2 g/dL 32-36 [facility] No Panel InformationOrdered By: Dr. Cooley on 02-21-2023 Estimated GFR (MDRD) Amer 93 mL/min >60 [facility] Comment on above: GFR Calc Estimated GFR (MDRD) Non-Af Amer 77 mL/min >60 [facility] Comment on above: Non- GFR Calc Thyroid Stimulating Hormone (TSH) 1.59 uIU/mL 0.358-3.74 [facility] Urine Microalbumin/Creatinine Ratio 10.3 mg/g CRE <30 [facility] Platelets bldOrdered By: Dr. Cooley on 02-21-2023 Platelets (Bld) [#/Vol] 330 10*3/uL 150-450 [facility] Serum or plasma albumin walt urement (mass/volume)Ordered By: Dr. Cooley on 02-21-2023 Albumin [Mass/Vol] 3.4 g/dL 3.2-5.0 [facility] Serum or plasma albumin/glob ulin mass ratioOrdered By: Dr. Cooley on 02-21-2023 Albumin/Globulin [Mass ratio] 1.0 {ratio} 0.9-2.4 [facility] Serum or plasma calcium walt urement (mass/volume)Ordered By: Dr. Cooley on 02-21-2023 Calcium [Mass/Vol] 9.1 mg/dL 8.5-10.1 [facility] Serum or plasma cholesterol in HDL measurement (mass/volume)Ordered By: Dr. Cooley on 02-21-2023 Cholesterol in HDL [Mass/Vol] 52 mg/dL >40 [facility] Comment on above: The drugs N-Acetylcy steine and Metamizole may falsely depress this assay. Reference Range HDL <40 mg/dL Low HDL Cholesterol HDL >or= 60 mg/dL High HDL Cholesterol Serum or plasma cholesterol in VLDL measurement (mass/volume)Ordered By: Dr. Cooley on 02-21-2023 Cholesterol in VLDL [Mass/Vol] 23 mg/dL 5-40 [facility] [facility] Serum or plasma creatinine m easurement (mass/volume)Ordered By: Dr. Cooley on 02-21-2023 Creatinine [Mass/Vol] 1.00 mg/dL 0.70-1.30 [facility] Comment on above: The validity of the calculated GFR & GFRAA in patients over 70 years has not been determined. Clinical correlation is essential. Serum or plasma low density lipoprotein (LDL) cholesterol measurement (mass/volume)Ordered By: Dr. Cooley on 02-21-2023 Cholesterol in LDL [Mass/Vol] 58 mg/dL 0-130 [facility] Serum or plasma urea nitroge n measurement (mass/volume)Ordered By: Dr. Cooley on 02-21-2023 Urea nitrogen [Mass/Vol] 27 mg/dL 7-18 [facility] Thin prep Papanicolaou smear with manual screeningOrdered By: Dr. Cooley on 02-21-2023 Thin prep Papanicolaou smear with manual screening 9 U/L 15-37 [facility] Thin prep Papanicolaou smear with manual screening 6 5-15 [facility] Thin prep Papanicolaou smear with manual screening 11.9 mg/L NO RANGE EST. [facility] Urine creatinine measurement (mass/volume)Ordered By: Dr. Cooley on 02-21-2023 Creatinine (U) [Mass/Vol] 115.00 mg/dL NO RANGE EST. [facility] Whole blood hemoglobin A1c/t otal hemoglobin ratio (mass fraction)Ordered By: Dr. Cooley on 02-21-2023 HbA1c (Bld) [Mass fraction] 6.4 % 3.8-5.6 [facility] Comment on above: Normal < 5.7 % Predi abetic 5.7 - 6.4 % Diabetic >or= 6.5 % Please note range changes. Anabelle 02-14-2023 JUMA Telephone (NIKOS) KEVIN GRIFFITH ([id number]) 1945 M Date Time Provider Department 02/14/23 JAYLYN INEVES During your visit today, we recorded the [...] is very concerned. Please call her at [phone]. Raeann Harrison RN 02/14/2023 3:05 PM Signed Received voicemail from patients' on Mon02/14/2023 2:28 PM Transcript below: This is Brennen Griffith. My phone number is [phone]. I'm calling for my Kevin Griffith. His [...] really bad or it's gonna be a longterm and I don't wanna do that so please give me a call at your earliest convenience. Thank you. Abbey. Message shared with CAR for further guidance. YVONNE Naik, RN February 14, 2023 3:04 PM Seven Harrison RN 02/14/2023 3:08 PM Signed MC message sent to patient and for further assessment. Awaiting reply. YVONNE Naik, MISAEL February 14, 2023 3:08 PM Seven Harrison [...] more. No further issues at this time. KA notified. Seven Harrison, MSN, RN February 16, 2023 1:20 PM Allergies As of Date: 02/14/2023 Noted Allergy Reaction REGLAN (METOCLOPRAMIDE) 08/25/2021 1 - Mental Status Change Comments: psychosis Date Reviewed: 12/12/2022 Reviewed by: Sneha Craft MA - Fully Assessed Reason for Visit: Patient Update [1234] Cmt: Increased falls, aggression Prescriptions as of 02/16/2023 - finasteride (PROSCAR) 5 mg tablet (more content not included)... Normal [facility] CNPNon 01-10-2023 CNPN Telephone (TOANMDN) NACHOKEVIN Khushbu ([id number]) 1945 M Date Time Provider Department 01/10/23 JAYLYN NIEVES During your visit today, we recorded the following information about you: Grace Sibley RN 01/10/2023 4:24 PM Signed Voicemail received January 10, 2023 2933 My name is Brennen Griffith. My phone number is [phone]. My 's name is Kevin Griffith. He [...] to do to help Kevin. Thank you. Bye bye now. Call to patient Reports decline in [...] is Brennen Griffith. My phone number is [phone]. This is in regard to Kevin Griffith. [...] 50 MCG, 2,000 UNIT, GUMMIES) - fluticasone ytafbrl-qlafzrmubucb-mo lanterol (TRELEGY ELLIPTA) 200-62.5-25 mcg powder inhaler [...] Encounter Status:Closed by KAREN PARRA on 01/13/23 [facility] percentageOrdered B y: Dr. Gregory on 01-04-2023 Chloride [Moles/Vol] 106 mmol/L 98-107 [facility] Cholesterol [Mass/Vol] 139 mg/dL <200 [facility] Comment on above: <200 mg/dL Desirable 200-240 mg/dL Borderline >240 mg/dL High Risk Glucose [Mass/Vol] 55 mg/dL 74-106 [facility] Potassium [Moles/Vol] 3.9 mmol/L 3.5-5.1 [facility] Sodium [Moles/Vol] 143 mmol/L 136-145 [facility] Triglyceride [Mass/Vol] 133 mg/dL <199 [facility] Comment on above: The drugs N-Acetylcy steine and Metamizole may falsely depress this assay.Serum Triglycerides Reference Interval Normal <150 mg/dL Borderline high 150 - 199 mg/dL High 200 - 499 mg/dL Very High > or = 500 mg/dL Laboratory - Chemistry and C hemistry - challengeOrdered By: Dr. Gregory on 01-04-2023 ALT [Catalytic activity/Vol] 12 U/L 16-61 [facility] CO2 [Moles/Vol] 27.0 mmol/L 21.0-32.0 [facility] Urea nitrogen/Creatinine [Mass ratio] 25.1 mg/mg 10-20 [facility] No Panel InformationOrdered By: Dr. Gregory on 01-04-2023 Estimated GFR (MDRD) Amer 98 mL/min >60 [facility] Comment on above: GFR Calc Estimated GFR (MDRD) Non-Af Amer 81 mL/min >60 [facility] Comment on above: Non- GFR Calc Serum or plasma calcium walt urement (mass/volume)Ordered By: Dr. Gregory on 01-04-2023 Calcium [Mass/Vol] 8.9 mg/dL 8.5-10.1 [facility] Serum or plasma cholesterol in HDL measurement (mass/volume)Ordered By: Dr. Gregory on 01-04-2023 Cholesterol in HDL [Mass/Vol] 44 mg/dL >40 [facility] Comment on above: The drugs N-Acetylcy steine and Metamizole may falsely depress this assay. Reference Range HDL <40 mg/dL Low HDL Cholesterol HDL >or= 60 mg/dL High HDL Cholesterol Serum or plasma cholesterol in VLDL measurement (mass/volume)Ordered By: Dr. Gregory on 01-04-2023 Cholesterol in VLDL [Mass/Vol] 27 mg/dL 5-40 [facility] Serum or plasma creatinine m easurement (mass/volume)Ordered By: Dr. Gregory on 01-04-2023 Creatinine [Mass/Vol] 0.96 mg/dL 0.70-1.30 [facility] Comment on above: The validity of the calculated GFR & GFRAA in patients over 70 years has not been determined. Clinical correlation is essential. Serum or plasma low density lipoprotein (LDL) cholesterol measurement (mass/volume)Ordered By: Dr. Gregory on 01-04-2023 Cholesterol in LDL [Mass/Vol] 68 mg/dL 0-130 [facility] Serum or plasma urea nitroge n measurement (mass/volume)Ordered By: Dr. Gregory on 01-04-2023 Urea nitrogen [Mass/Vol] 24 mg/dL 7-18 [facility] Thin prep Papanicolaou smear with manual screeningOrdered By: Dr. Gregory on 01-04-2023 Thin prep Papanicolaou smear with manual screening 16 U/L 15-37 [facility] Thin prep Papanicolaou smear with manual screening 10 5-15 [facility] Whole blood hemoglobin A1c/t otal hemoglobin ratio (mass fraction)Ordered By: Dr. Gregory on 01-04-2023 HbA1c (Bld) [Mass fraction] 6.3 % 3.8-5.6 [facility] Comment on above: Normal < 5.7 % Predi abetic 5.7 - 6.4 % Diabetic >or= 6.5 % Please note range changes. CNOVon 12-12-2022 CNOV Office Visit (NRMDN) KEVIN GRIFFITH ([id number]) 1945 M Date Time Provider Department 12/12/22 2:00 PM LENI RUIZ During your visit today, we recorded the following information about you: Weight Height 118.3 kg 1.778 m Leni Ruiz APRN.RIGHT OF WAY SUPERVISOR 12/13/2022 10:48 PM Signed [facility] - FOLLOW UP EVALUATION Ron Cooley MD [address] [facility] [address] Dear Ron Cooley MD: I had the [...] Flowsheet Row OT/PT/Speech Visit from 10/04/2022 in [facility] Outpatient Physical Therapy OT/PT/Speech Visit from 08/25/2022 in [facility] Outpatient Physical Therapy [facility] [...] Current Outpa (more content not included)... [facility] Telephone (NRMDN) NACHOKEVIN Ríos ([id number]) 1945 M Date Time Provider Department 10/10/22 JAYLYN NIEVES During your visit today, we recorded the following information about you: Seven Harrison RN 10/10/2022 2:45 PM Signed Received voicemail from patient on Mon10/10/2022 9:09 AM Transcript below: Morning this is Kevin Griffith and my phone number is [phone]. I calling to find out if there's [...] Voicemail left directing patient to a detailed Askem message. Requested reply via MC or RCTO. [...] tablet by mouth twice daily. - fluticasone sntjnvv-lpnovtclsqvr-yr lanterol (TRELEGY ELLIPTA) 200-62.5-25 mcg powder inhaler [...] Encounter Status:Closed by SEVEN HARRISON on 10/10/22 Normal [facility] CNTHERAPYon 10-04-2022 CNTHERAPY OT/PT/Speech Visit (PTMDRG) KEVIN GRIFFITH ([id number]) 1945 M Date Time Provider Department 10/04/22 11:30 AM KORI RYDER Date Time Provider Department Center 10/04/2022 11:30 AM [id number] RYDER [facility] Reason for Visit: Physical Therapy [503] PT [...] 50 mg tablet - [facility] Inhale as instructed. - FREESTYLE CALIXTO 2 SENSOR kit use to TEST BLOOD SUGAR as directed CHANGE EVERY 14 DAYS - potassium chloride ER (KLOR-CON M20) 20 mEq tablet once daily. - SURE COMFORT PEN NEEDLE 31 gauge x 16 - carbidopa-levodopa (SINEMET 25-100) 25-100 mg per [...] 50 MCG, 2,000 UNIT, GUMMIES) - fluticasone cuqmtuk-ockmhcvieqay-sd lanterol (TRELEGY ELLIPTA) 200-62.5-25 mcg powder inhaler [...] by mouth once daily. Normal [facility] Basophil percentageOrdered B y: Dr. Gregory on 09-16-2022 Chloride [Moles/Vol] 105 mmol/L 98-107 [facility] Glucose [Mass/Vol] 142 mg/dL 74-106 [facility] Comment on above: Fasting Glucose resu lt greater than or equal to 126 mg/dL suggests DIABETES MELLITUS per A.D.A. criteria. Potassium [Moles/Vol] 3.8 mmol/L 3.5-5.1 [facility] Sodium [Moles/Vol] 137 mmol/L 136-145 [facility] Laboratory - Chemistry and C hemistry - challengeOrdered By: Dr. Gregory on 09-16-2022 ALT [Catalytic activity/Vol] 13 U/L 16-61 [facility] CO2 [Moles/Vol] 24.0 mmol/L 21.0-32.0 [facility] Urea nitrogen/Creatinine [Mass ratio] 24.0 mg/mg 10-20 [facility] No Panel InformationOrdered By: Dr. Gregory on 09-16-2022 Estimated GFR (MDRD) Amer 89 mL/min >60 [facility] Comment on above: GFR Calc Estimated GFR (MDRD) Non-Af Amer 73 mL/min >60 [facility] Comment on above: Non- GFR Calc Thyroid Stimulating Hormone (TSH) 1.71 uIU/mL 0.358-3.74 [facility] Serum or plasma calcium walt urement (mass/volume)Ordered By: Dr. Gregory on 09-16-2022 Calcium [Mass/Vol] 9.4 mg/dL 8.5-10.1 [facility] Serum or plasma creatinine m easurement (mass/volume)Ordered By: Dr. Gregory on 09-16-2022 Creatinine [Mass/Vol] 1.04 mg/dL 0.70-1.30 [facility] Comment on above: The validity of the calculated GFR & GFRAA in patients over 70 years has not been determined. Clinical correlation is essential. Serum or plasma urea nitroge n measurement (mass/volume)Ordered By: Dr. Gregory on 09-16-2022 Urea nitrogen [Mass/Vol] 25 mg/dL 7-18 [facility] Thin prep Papanicolaou smear with manual screeningOrdered By: Dr. Gregory on 09-16-2022 Thin prep Papanicolaou smear with manual screening 13 U/L 15-37 [facility] Thin prep Papanicolaou smear with manual screening 8 5-15 [facility] Whole blood hemoglobin A1c/t otal hemoglobin ratio (mass fraction)Ordered By: Dr. Gregory on 09-16-2022 HbA1c (Bld) [Mass fraction] 6.5 % 3.8-5.6 [facility] Comment on above: Normal < 5.7 % Predi abetic 5.7 - 6.4 % Diabetic >or= 6.5 % Please note range changes. CNTHERAPYon 09-15-2022 CNTHERAPY OT/PT/Speech Visit (PTMDRG) KEVIN GRIFFITH ([id number]) 1945 M Date Time Provider Department 09/15/22 4:00 PM KORI RYDER Date Time Provider Department Center 09/15/2022 4:00 PM [id number] RYDER [facility] Reason for Visit: Physical Therapy [503] Primary [...] tablet by mouth twice daily. - fluticasone faccvft-ajogpzucsayz-ky lanterol (TRELEGY ELLIPTA) 200-62.5-25 mcg powder inhaler [...] Take 80 mg by mouth once daily. [facility] 09-12-2022 [facility] Telephone (NREUS2) KEVIN GRIFFITH ([id number]) 1945 M Date Time Provider Department 09/12/22 JAYLYN NIEVES NRDILIPS2 During your visit today, we recorded the following information about you: Lena Gallo [facility] 09/12/2022 2:37 PM Signed NI PHONE NAME OF CALLER: Brennen RELATIONSHIP TO PATIENT: spouse PATIENT ID'D BY NAME/: yes REASON FOR CALL: States that his PD symptoms are worsening and she would like to speak with Stefania. CALLBACK #: [phone] OK TO LEAVE MESSAGE: ok only on this number - do not leave at home number LAST FUV: 08/04/22 with CAR Harrison, RN 09/13/2022 12:32 PM Signed Returned call to [place]. No reply, left detailed message requesting RCTO. [...] Harrison RN 09/14/2022 2:42 PM Signed Called daughter Barbi and shared update. She [...] for RCTO and option to message via Askem. YVONNE Naik, RN September 16, 2022 8:48 [...] mg tablet (more content not included)... Normal [facility] CNTHERAPYon 08-25-2022 CNTHERAPY OT/PT/Speech Visit (PTMDRG) KEVIN GRIFFITH ([id number]) 1945 M Date Time Provider Department 08/25/22 5:30 PM KORI RYDER Date Time Provider Department Center 08/25/2022 5:30 PM [id number] RYDER [facility] Reason for Visit: Physical Therapy [503] Primary [...] tablet by mouth twice daily. - fluticasone fpjfsla-yacoycadtjey-vz lanterol (TRELEGY ELLIPTA) 200-62.5-25 mcg powder inhaler [...] Take 80 mg by mouth once daily. [facility] CNTHERAPYon 08-11-2022 CNTHERAPY OT/PT/Speech Visit (PTMDRG) KEVIN GRIFFITH ([id number]) 1945 M Date Time Provider Department 08/11/22 1:00 PM KORI RYDERLluvia Date Time Provider Department [place] 08/11/2022 1:00 PM [id number] RYDERLluvia [facility] Reason for Visit: PT Eval [747] Patient [...] tablet by mouth twice daily. - fluticasone qdxlurg-ambdyqtvyrbz-zg lanterol (TRELEGY ELLIPTA) 200-62.5-25 mcg powder inhaler [...] Take 80 mg by mouth once daily. [facility] 08-04-2022 CN Office Visit (NRMDN) KEVIN GRIFFITH ([id number]) 1945 M Date Time Provider Department 08/04/22 2:00 PM JAYLYN NIEVES During your visit today, we recorded the following information about you: Pulse Respiration Blood pressure 107/minute 16/minute 109/86 Jaylyn Nieves MD 08/04/2022 5:35 PM Signed [facility] - FOLLOW UP EVALUATION Ron Cooley MD [address] [facility] [address] [facility] [address] I had the pleasure of seeing Mr. [...] 1 tablet by mouth twice daily. fluticasone gvazvae-gjuwetdfrqvi-lj lanterol (TRELEGY ELLIPTA) 200-62.5-25 mcg powder inhaler Inhale 1 Puff as instructed once daily. aspirin, enteric coated (ASPIRIN, ENTERIC COATED) 81 mg EC tablet Take 81 mg by mouth once daily. tamsulosin (FLOMAX) 0.4 mg Take 0.4 m (more content not included)... Normal [facility] No Panel Informationon 08-01 Prostate Specific Antigen Screen 5.11 ng/mL 0.00-4.00 [facility] Work Phone: Comment on above: This test was perfor med using the TPSA assay method for [employer] system. Values obtained with differentassay methods cannot be used interchangably.When changing PSA assays in the course of monitoring apatient, additional sequential testing should be carriedout to confirm baseline values. Anabelle 07-21-2022 JUMA Telephone (NRSEAN) LAINEYKEVIN WEEMS ([id number]) 1945 M Date Time Provider Department 07/21/22 JAYLYN NIEVES During your visit today, we recorded the following information about you: Seven Harrison RN 07/21/2022 1:09 PM Signed Received voicemail from patient's on Ros[place] 07/21/2022 10:52 AM Transcript below: Kaila my name is Brennen Griffith. My 's name is Kevin Griffith. He is a patient of Dr. Gordillo. My phone number is [phone]. I'm calling to speak to somebody regarding [...] quality. Updates shared with MD CAR AND JANY ENGRAVER RUBBER. If any guidance is suggested, RN will contact with feedback. YVONNE Naik, RN July 21, 2022 12:42 PM Allergies [...] Status:Closed by SEVEN HARRISON on 07/21/22 Normal [facility] No Panel Informationon 06-21 Urine Microalbumin/Creatinine Ratio 12.4 mg/g CRE <30 [facility] Work Phone: Thin prep Papanicolaou smear with manual screeningon 06-21-2022 Thin prep Papanicolaou smear with manual screening 17.8 mg/L NO RANGE EST. [facility] Work Phone: Urine creatinine measurement (mass/volume)on 06-21-2022 Creatinine (U) [Mass/Vol] 144.00 mg/dL NO RANGE EST. [facility] Work Phone: Basophil percentageon 2021 Chloride [Moles/Vol] 102 mmol/L 98-107 [facility] Work Phone: Cholesterol [Mass/Vol] 140 mg/dL <200 [facility] Work Phone: Comment on above: <200 mg/dL Desirable 200-240 mg/dL Borderline >240 mg/dL High Risk Glucose [Mass/Vol] 224 mg/dL 74-106 [facility] Work Phone: Comment on above: Glucose result great er than or equal to 200 mg/dLsuggests DIABETES MELLITUS per A.D.A. criteria. Potassium [Moles/Vol] 3.9 mmol/L 3.5-5.1 [facility] Work Phone: Sodium [Moles/Vol] 137 mmol/L 136-145 [facility] Work Phone: Triglyceride [Mass/Vol] 161 mg/dL <199 [facility] Work Phone: Comment on above: The drugs N-Acetylcy steine and Metamizole may falsely depress this assay.Serum Triglycerides Reference Interval Normal <150 mg/dL Borderline high 150 - 199 mg/dL High 200 - 499 mg/dL Very High > or = 500 mg/dL Laboratory - Chemistry and C hemistry - challengeon 06-20-2022 ALT [Catalytic activity/Vol] 21 U/L 16-61 [facility] Work Phone: CO2 [Moles/Vol] 29.0 mmol/L 21.0-32.0 [facility] Work Phone: Urea nitrogen/Creatinine [Mass ratio] 21.7 mg/mg 10-20 [facility] Work Phone: No Panel Informationon 06-20 Estimated GFR (MDRD) Amer 75 mL/min >60 [facility] Work Phone: Comment on above: GFR Calc Estimated GFR (MDRD) Non-Af Amer 62 mL/min >60 [facility] Work Phone: Comment on above: Non- GFR Calc Serum or plasma calcium walt urement (mass/volume)on 06-20-2022 Calcium [Mass/Vol] 8.8 mg/dL 8.5-10.1 [facility] Work Phone: Serum or plasma cholesterol in HDL measurement (mass/volume)on 06-20-2022 Cholesterol in HDL [Mass/Vol] 47 mg/dL >40 [facility] Work Phone: [phone] Comment on above: The drugs N-Acetylcy steine and Metamizole may falsely depress this assay. Reference Range HDL <40 mg/dL Low HDL Cholesterol HDL >or= 60 mg/dL High HDL Cholesterol Serum or plasma cholesterol in VLDL measurement (mass/volume)on 06-20-2022 Cholesterol in VLDL [Mass/Vol] 32 mg/dL 5-40 [facility] Work Phone: Serum or plasma creatinine m easurement (mass/volume)on 06-20-2022 Creatinine [Mass/Vol] 1.20 mg/dL 0.70-1.30 [facility] Work Phone: Comment on above: The validity of the calculated GFR & GFRAA in patients over 70 years has not been determined. Clinical correlation is essential. Serum or plasma low density lipoprotein (LDL) cholesterol measurement (mass/volume)on 06-20-2022 Cholesterol in LDL [Mass/Vol] 61 mg/dL 0-130 [facility] Work Phone: Serum or plasma urea nitroge n measurement (mass/volume)on 06-20-2022 Urea nitrogen [Mass/Vol] 26 mg/dL 7-18 [facility] Work Phone: Thin prep Papanicolaou smear with manual screeningon 06-20-2022 Thin prep Papanicolaou smear with manual screening 17 U/L 15-37 [facility] Work Phone: Thin prep Papanicolaou smear with manual screening 6 5-15 [facility] Work Phone: Whole blood hemoglobin A1c/t otal hemoglobin ratio (mass fraction)on 06-20-2022 HbA1c (Bld) [Mass fraction] 6.7 % 3.8-5.6 [facility] Work Phone: Comment on above: Normal < 5.7 % Predi abetic 5.7 - 6.4 % Diabetic >or= 6.5 % Please note range changes. Absolute lymphocyte counton 04-25-2022 Lymphocytes Auto (Unsp spec) [#/Vol] 3.24 10*3/uL 0.83-4.51 [facility] Work Phone: Basophil percentageon 04-25- 2021 Basophil percentage 0-5 SEEN /hpf 0-5 [facility] Work Phone: Basophils/100 WBC (Bld) 1.2 % 0-1 [facility] Work Phone: Bilirubin [Mass/Vol] 0.70 mg/dL 0.20-1.00 [facility] Work Phone: Comment on above: For patients on eltr ombopag therapy, use of Dimension Leupp TBIL is not recommended. Chloride [Moles/Vol] 103 mmol/L 98-107 [facility] Work Phone: Cholesterol [Mass/Vol] 138 mg/dL <200 [facility] Work Phone: Comment on above: <200 mg/dL Desirable 200-240 mg/dL Borderline >240 mg/dL High Risk Eosinophils/100 WBC (Bld) 2.6 % 0-5 [facility] Work Phone: Glucose [Mass/Vol] 168 mg/dL 74-106 [facility] Work Phone: Comment on above: Fasting Glucose resu lt greater than or equal to 126 mg/dL suggests DIABETES MELLITUS per A.D.A. criteria. Neutrophils (Bld) [#/Vol] 4.2 10*3/uL 2.0-7.7 [facility] Work Phone: [phone] Neutrophils/100 WBC (Bld) 46.5 % 47-70 [facility] Work Phone: Potassium [Moles/Vol] 3.9 mmol/L 3.5-5.1 [facility] Work Phone: Protein [Mass/Vol] 7.3 g/dL 6.4-8.2 [facility] Work Phone: Sodium [Moles/Vol] 137 mmol/L 136-145 [facility] Work Phone: Triglyceride [Mass/Vol] 193 mg/dL <199 [facility] Work Phone: Comment on above: The drugs N-Acetylcy steine and Metamizole may falsely depress this assay.Serum Triglycerides Reference Interval Normal <150 mg/dL Borderline high 150 - 199 mg/dL High 200 - 499 mg/dL Very High > or = 500 mg/dL WBC (Bld) [#/Vol] 8.9 10*3/uL 4.4-11.0 [facility] Work Phone: Bilirubin Test strip Ql (U)o n 04-25-2022 Bilirubin Ql (U) Negative Negative [facility] Work Phone: Blood erythrocytes count (nu mber/volume)on 04-25-2022 RBC (Bld) [#/Vol] 4.66 10*6/uL 4.6-6.2 [facility] Work Phone: Blood hemoglobin measurement (mass/volume)on 04-25-2022 Hemoglobin (Bld) [Mass/Vol] 14.6 g/dL 13.0-16.5 [facility] Work Phone: Blood lymphocytes/100 leukoc yteson 04-25-2022 Lymphocytes/100 WBC (Bld) 36.4 % 19-41 [facility] Work Phone: Blood monocytes/100 leukocyt eson 04-25-2022 Monocytes/100 WBC (Bld) 12.6 % 0-10 [facility] Work Phone: Blood platelet mean volumeon 04-25-2022 Platelet mean volume (Bld) [Entitic vol] 10.1 fL 6.2-12.0 [facility] Work Phone: Determination of erythrocyte mean corpuscular volume (MCV)on 04-25-2022 MCV (RBC) [Entitic vol] 93.3 fL 80-94 [facility] Work Phone: Hematocrit Auto (Bld) [Volum e fraction]on 04-25-2022 Hematocrit (Bld) [Volume fraction] 43.5 % 40-54 [facility] Work Phone: Ketones Test strip Ql (U)on 04-25-2022 Ketones Ql (U) 5 mg/dl Negative [facility] Work Phone: Laboratory - Chemistry and C hemistry - challengeon 04-25-2022 ALP [Catalytic activity/Vol] 62 U/L 45-117 [facility] Work Phone: [phone] ALT [Catalytic activity/Vol] 25 U/L 16-61 [facility] Work Phone: CO2 [Moles/Vol] 25.0 mmol/L 21.0-32.0 [facility] Work Phone: [phone] Cobalamin (Vitamin B12) [Mass/Vol] 1930 pg/mL 211-911 [facility] Work Phone: Globulin (S) [Mass/Vol] 3.6 g/dL 2.2-4.2 [facility] Work Phone: Urea nitrogen/Creatinine [Mass ratio] 19.8 mg/mg 10-20 [facility] Work Phone: Laboratory - Hematology and Cell countson 04-25-2022 Erythrocyte distribution width (RBC) [Entitic vol] 46.3 fL 35.1-43.9 [facility] Work Phone: Erythrocyte distribution width (RBC) [Ratio] 13.6 % 11.6-14.6 [facility] Work Phone: Immature granulocytes/100 WBC (Bld) 0.700 % 0.0-0.9 [facility] Work Phone: Comment on above: IG% - Immature Granu locytes (promyelocytes, myelocytes and metamyelocytes) > 1% indicates that a LEFT SHIFT is Present. MCH (RBC) [Entitic mass] 31.3 pg 27.0-32.0 [facility] Work Phone: Nucleated RBC/100 WBC (Bld) [Ratio] 0 % 0-5 [facility] Work Phone: MCHC Auto (RBC) [Mass/Vol]on 04-25-2022 MCHC (RBC) [Mass/Vol] 33.6 g/dL 32-36 [facility] Work Phone: Mucus LM Ql (Urine sed)on Mucus Ql (Urine sed) 0 SEEN /hpf [facility] Work Phone: Nitrite Test strip Ql (U)on 04-25-2022 Nitrite Ql (U) Negative Negative [facility] Work Phone: No Panel Informationon 04-25 Estimated GFR (MDRD) Amer 87 mL/min >60 [facility] Work Phone: Comment on above: GFR Calc Estimated GFR (MDRD) Non-Af Amer 72 mL/min >60 [facility] Work Phone: Comment on above: Non- GFR Calc Thyroid Stimulating Hormone (TSH) 2.14 uIU/mL 0.358-3.74 [facility] Work Phone: Vitamin D 25-Hydroxy 59.3 ng/mL [facility] Work Phone: Comment on above: Vitamin D 25(OH) Sta tus Range Deficiency <20 ng/mL (50nmol/L) Insufficiency 20 - 30 ng/mL (50 - 75 nmol/L) Sufficiency 30 - 100 ng/mL (75 - 250 nmol/L) Toxicity >100 ng/mL (>250 nmol/L) Platelets bldon 04-25-2022 Platelets (Bld) [#/Vol] 264 10*3/uL 150-450 [facility] Work Phone: Protein Test strip Ql (U)on 04-25-2022 Protein Ql (U) Negative Negative [facility] Work Phone: Serum or plasma albumin walt urement (mass/volume)on 04-25-2022 Albumin [Mass/Vol] 3.7 g/dL 3.2-5.0 [facility] Work Phone: Serum or plasma albumin/glob ulin mass ratioon 04-25-2022 Albumin/Globulin [Mass ratio] 1.0 {ratio} 0.9-2.4 [facility] Work Phone: Serum or plasma calcium walt urement (mass/volume)on 04-25-2022 Calcium [Mass/Vol] 9.1 mg/dL 8.5-10.1 [facility] Work Phone: Serum or plasma cholesterol in HDL measurement (mass/volume)on 04-25-2022 Cholesterol in HDL [Mass/Vol] 43 mg/dL >40 [facility] Work Phone: Comment on above: The drugs N-Acetylcy steine and Metamizole may falsely depress this assay. Reference Range HDL <40 mg/dL Low HDL Cholesterol HDL >or= 60 mg/dL High HDL Cholesterol Serum or plasma cholesterol in VLDL measurement (mass/volume)on 04-25-2022 Cholesterol in VLDL [Mass/Vol] 39 mg/dL 5-40 [facility] Work Phone: Serum or plasma creatinine m easurement (mass/volume)on 04-25-2022 Creatinine [Mass/Vol] 1.06 mg/dL 0.70-1.30 [facility] Work Phone: Comment on above: The validity of the calculated GFR & GFRAA in patients over 70 years has not been determined. Clinical correlation is essential. Serum or plasma folate measu rement (mass/volume)on 04-25-2022 Folate [Mass/Vol] 13.80 ng/mL 3.1-55.4 [facility] Work Phone: Comment on above: Slight Hemolysis, Re sult may be falsely increased. Serum or plasma low density lipoprotein (LDL) cholesterol measurement (mass/volume)on 04-25-2022 Cholesterol in LDL [Mass/Vol] 56 mg/dL 0-130 [facility] Work Phone: Serum or plasma urea nitroge n measurement (mass/volume)on 04-25-2022 Urea nitrogen [Mass/Vol] 21 mg/dL 7-18 [facility] Work Phone: Squamous epithelial cells de tection in urine sediment by light microscopyon 04-25-2022 Epithelial cells.squamous LM Ql (Urine sed) 0 SEEN /hpf 0-5 [facility] Work Phone: Thin prep Papanicolaou smear with manual screeningon 04-25-2022 Thin prep Papanicolaou smear with manual screening 17 U/L 15-37 [facility] Work Phone: Thin prep Papanicolaou smear with manual screening 9 5-15 [facility] Work Phone: Urine blood detectionon 06-0 RBC Ql (U) Negative Negative [facility] Work Phone: RBC Ql (U) 0-5 SEEN /hpf 0-5 [facility] Work Phone: Urine clarityon 04-25-2022 Clarity (U) Clear Clear [facility] Work Phone: Urine color determinationon 04-25-2022 Color (U) Yellow Yellow [facility] Work Phone: Urine glucose detectionon Glucose Ql (U) Normal mg/dl Normal [facility] Work Phone: Urine leukocyte esterase det ection by dipstickon 04-25-2022 Leukocyte esterase Test strip Ql (U) Negative Negative [facility] Work Phone: Urine pHon 04-25-2022 pH (U) 6.0 [pH] 5.0 - 8.0 [facility] Work Phone: Urine sediment bacteria coun t by microscopy (number/high power field)on 04-25-2022 Bacteria LM.HPF (Urine sed) [#/Area] RARE /hpf None Seen [facility] Work Phone: Urine specific gravity measu rementon 04-25-2022 Specific gravity (U) [Rel density] 1.020 1.002-1.030 [facility] Work Phone: Urobilinogen Auto test strip Ql (U)on 04-25-2022 Urobilinogen Ql (U) 4 mg/dl Normal [facility] Work Phone: Whole blood hemoglobin A1c/t otal hemoglobin ratio (mass fraction)on 04-25-2022 HbA1c (Bld) [Mass fraction] 6.6 % 3.8-5.6 [facility] Work Phone: Comment on above: Normal < 5.7 % Predi abetic 5.7 - 6.4 % Diabetic >or= 6.5 % Please note range changes. Laboratory - Drug toxicology on 04-07-2022 Amphetamines Ql (U) Negative <1000 ng/mL [facility] Work Phone: Benzodiazepines Ql (U) Negative < 200 ng/mL [facility] Work Phone: Cannabinoids Screen Ql (U) Negative < 50 ng/mL [facility] Work Phone: Cocaine Ql (U) Negative < 300 ng/mL [facility] Work Phone: Opiates Ql (U) Negative < 300 ng/mL [facility] Work Phone: No Panel Informationon 04-07 MDMA (Ecstasy) Screen Negative < 500 ng/mL [facility] Work Phone: Miscellaneous Test See comment [facility] Work Phone: Comment on above: [id number] 6+OXYCODONE-B UND (ng/mL) DRUG RESULT SCREEN CUTOFF____ Amphetamines,Urine Negative ng/mL 1000 Amphetamine test includes Amphetamine and Methamphetamine.Barbiturates Negative ng/mL 200Benzodiazepines Negative ng/mL 200Cannabinoid Negative ng/mL 20Cocaine (Metab) Negative ng/mL 300Opiates Negative ng/mL 300 Opiates test includes Codeine, Morphine, Hydromorphone, Hydrocodone. Oxycodone/Oxymorphone,Urine Positive ng/mL 300 Test includes Oxydodone and Oxymorphone. Oxycodone PositiveOxycodone Conf,MS,UR 666 ng/mL 300 Oxymorphone Negative 300 TESTING PERFORMED AT [facility]. ORIGINAL REPORT ON FILE IN LAB CONTAINS ADDITIONAL TEST SITE INFORMATION. Urine Barbiturates Screen Negative < 200 ng/m L [facility] Work Phone: Urine Drug Screen Comment [facility] Work Phone: Comment on above: CONFIRMATORY TESTING [...] Urine Methadone Screen Negative < 300 ng/mL [facility] Work Phone: Urine phencyclidine (PCP) de tectionon 04-07-2022 Phencyclidine Ql (U) Negative < 25 ng/mL [facility] Work Phone: CNOVon 03-29-2022 CNOV Office Visit (SPEMML ) KEVIN GRIFFITH ([id number]) 1945 M Date Time Provider Department 03/29/22 1:30 PM SAKINA RO During your visit today, we recorded the following information about you: JOSE Hopper 03/29/2022 3:59 PM Signed Episode Visit Count: 1 Therapist That Will Oversee The Plan Of Care: Andrade Start of Care Date: 03/29/22 Onset Date: 11/20/20 Plan of Care Certification Date: 03/29/22 Patient Identified by Name and Date of : Yes [facility] SPEECH and [...] position 20-30 minutes following all oral intake FREIGHT HUSTLER Recommendations: Swallowing Precautions;Discontinue Speech Therapy Results and [...] MBS (pt reports had MBS done at [place] last year, which pt was told 'he did fine' and no recommendations for follow up ST or diet modifications made) Clinical Swallow [place] Swallow Protocol: Fail Fail: Coughing episodes (x1 throat clear delayed post trial of water) Oral Pharyngeal Swallow Assessment: Within Functional Limits Except Preparatory / Oral Phase: Within Functional Limits Except Mastication: (pt with close attention to mastication-requires extended time) A-P Transit: Suspect impairment Oral Residue: Mildly Impaired Pharyng (more content not included)... Normal [facility] Office Visit (NRMDN) KEVIN GRIFFITH ([id number]) 1945 M Date Time Provider Department 03/29/22 12:30 PM JAYLYN NIEVES During your visit today, we recorded the following information about you: Jaylyn Nieves MD 03/29/2022 7:35 PM Signed [facility] Jaylyn Nieves [address] [facility] [id number] Ron Cooley MD [address] [facility] [address] I had the pleasure of seeing Mr. 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 Started on Sinemet which caused side effects at 6/day. At last visit we tried to taper off it but he experiences return of tremors and confusion at dose of 3/day. Will increase Sinemet (more content not included)... Normal [facility] CNTHERAPYon 03-29-2022 CNTHERAPY OT/PT/Speech Visit (PTMDRG) KEVIN GRIFFITH ([id number]) 1945 M Date Time Provider Department 03/29/22 3:30 PM MAINE MEDEL PTMDRG Date Time Provider Department Center 03/29/2022 3:30 PM [id number] MEDEL PTMDRG [facility] Reason for Visit: PT Eval [747] Patient [...] Take 80 mg by mouth once daily. [facility] CNTHERAPY OT/PT/Speech Visit ([facility]) KEVIN GRIFFITH ([id number]) 1945 M Date Time Provider Department 03/29/22 2:30 PM HEENA ROMANO [facility] Date Time Provider Department Center 03/29/2022 2:30 PM [id number], HEENA [facility] Reason for Visit: OT EVAL [748] OT [...] Take 80 mg by mouth once daily. [facility] KEVIN GRIFFITH ([id number]) 1945 M Date Time Provider Department 03/23/22 JAYLYN NIEVES [facility] During your visit today, we recorded the [...] Encounter Status:Closed by BRYANNA HAAS on 03/23/22 [facility] Traci 03-17-2022 CNOV Office Visit (NRMDN) KEVIN GRIFFITH ([id number]) 1945 M Date Time Provider Department 03/17/22 3:00 PM JAYLYN NIEVES During your visit today, we recorded the following information about you: Pulse Blood pressure Weight Height 101/minute 120/77 125.8 kg 1.778 m Jaylyn Nieves MD 03/18/2022 4:12 PM Signed [facility] - FOLLOW UP EVALUATION No referring provider defined for this encounter. Ron Cooley MD [address] [facility] [id number] I had the pleasure of seeing Mr. [...] to be helpful Interval History Seen at [facility] for surgical evaluation. SDR was [...] is be (more content not included)... Normal [facility] Basophil percentageon 2021 Chloride [Moles/Vol] 105 mmol/L 98-107 [facility] Work Phone: Glucose [Mass/Vol] 102 mg/dL 74-106 [facility] Work Phone: Comment on above: Fasting Glucose resu lt from 100 to 125 mg/dL suggests IMPAIRED HOMEOSTASIS per A.D.A. criteria. Potassium [Moles/Vol] 3.5 mmol/L 3.5-5.1 [facility] Work Phone: Sodium [Moles/Vol] 138 mmol/L 136-145 [facility] Work Phone: Laboratory - Chemistry and C hemistry - challengeon 03-10-2022 ALT [Catalytic activity/Vol] 21 U/L 16-61 [facility] Work Phone: CO2 [Moles/Vol] 26.0 mmol/L 21.0-32.0 [facility] Work Phone: Urea nitrogen/Creatinine [Mass ratio] 24.3 mg/mg 10-20 [facility] Work Phone: No Panel Informationon 03-10 Estimated GFR (MDRD) Amer 79 mL/min >60 [facility] Work Phone: Comment on above: GFR Calc Estimated GFR (MDRD) Non-Af Amer 65 mL/min >60 [facility] Work Phone: Comment on above: Non- GFR Calc Serum or plasma calcium walt urement (mass/volume)on 03-10-2022 Calcium [Mass/Vol] 8.8 mg/dL 8.5-10.[address] [facility] [address] [facility] Work Phone: Serum or plasma creatinine m easurement (mass/volume)on 03-10-2022 Creatinine [Mass/Vol] 1.15 mg/dL 0.70-1.30 [facility] ster [facility] Work Phone: Comment on above: The validity of the calculated GFR & GFRAA in patients over 70 years has not been determined. Clinical correlation is essential. Serum or plasma urea nitroge n measurement (mass/volume)on 03-10-2022 Urea nitrogen [Mass/Vol] 28 mg/dL 7-18 [facility] Work Phone: Thin prep Papanicolaou smear with manual screeningon 03-10-2022 Thin prep Papanicolaou smear with manual screening 21 U/L 15-37 [facility] Work Phone: Thin prep Papanicolaou smear with manual screening 7 5-15 [facility] Work Phone: Whole blood hemoglobin A1c/t otal hemoglobin ratio (mass fraction)on 03-10-2022 HbA1c (Bld) [Mass fraction] 6.5 % 3.8-5.6 [facility] Work Phone: Comment on above: Normal < [...] MonDec 15, 2021 5:24:44 PM EST Normal [facility] Comment on above: Order Comment: Injur y/Trauma or Illness?:Illness/Other How long have you had these symptoms (acute/chronic)?:Acute Reason for exam?:resting tremor, Tremor Type of Exam?:Initial Additional signs and symptoms?:n Basophil percentageon 2020 Chloride [Moles/Vol] 104 mmol/L 98-107 [facility] Work Phone: Glucose [Mass/Vol] 148 mg/dL 74-106 [facility] Work Phone: Comment on above: Fasting Glucose resu lt greater than or equal to 126 mg/dL suggests DIABETES MELLITUS per A.D.A. criteria.Please note revised GLUCOSE reference range effective 2017. Potassium [Moles/Vol] 3.9 mmol/L 3.5-5.1 [facility] Work Phone: Sodium [Moles/Vol] 140 mmol/L 136-145 [facility] Work Phone: Laboratory - Chemistry and C hemistry - challengeon 11-15-2021 CO2 [Moles/Vol] 29.0 mmol/L 21.0-32.0 [facility] Work Phone: Urea nitrogen/Creatinine [Mass ratio] 18.5 mg/mg 10-20 [facility] Work Phone: No Panel Informationon 11-15 Estimated GFR (MDRD) Amer 85 mL/min >60 [facility] Work Phone: Comment on above: GFR Calc Estimated GFR (MDRD) Non-Af Amer 70 mL/min >60 [facility] Work Phone: Comment on above: Non- GFR Calc Serum or plasma calcium walt urement (mass/volume)on 11-15-2021 Calcium [Mass/Vol] 9.0 mg/dL 8.5-10.1 [facility] Work Phone: Serum or plasma creatinine m easurement (mass/volume)on 11-15-2021 Creatinine [Mass/Vol] 1.08 mg/dL 0.70-1.30 [facility] Work Phone: Comment on above: The validity of the calculated GFR & GFRAA in patients over 70 years has not been determined. Clinical correlation is essential. Serum or plasma urea nitroge n measurement (mass/volume)on 11-15-2021 Urea nitrogen [Mass/Vol] 20 mg/dL 7-18 [facility] Work Phone: Thin prep Papanicolaou smear with manual screeningon 11-15-2021 Thin prep Papanicolaou smear with manual screening 7 5-15 [facility] Work Phone: Whole blood hemoglobin A1c/t otal hemoglobin ratio (mass fraction)on 11-15-2021 HbA1c (Bld) [Mass fraction] 6.6 % 3.8-5.6 [facility] Work Phone: Comment on above: Normal < [...] No other mass effect. Patent basal cisterns. Fpga-[id number] symmetric global volume loss without lobar predominance. [...] MonNov 02, 2021 8:48:26 AM EST Normal [facility] Comment on above: Order Comment: Injur y/Trauma or Illness?:Illness/Other How long have you had these symptoms (acute/chronic)?:Acute Reason for exam?:trmors Type of Exam?:Initial Additional signs and symptoms?:HIFU protocol Glucose,Bedsideon 05-19-2021 Glucose [Mass/Vol] 137 mg/dL High 70-100 [facility] Comment on above: Result Comment: Test performed by glucose meter. Results may be 10%-15% lower than serum/plasma values. (CLIA ID [id number]) Performed By: #### B GLU #### [facility] [address] [place] [id number] OPERATIVE REPORTOrdered By: 3m Scanning on 05-19-2021 [facility] Work Phone: POCT GlucoseOrdered By: Nii Altman on 05-19-2021 Glucose [Mass/Vol] 137 mg/dL High 70 - 100 mg/dL [facility] Work Phone: Comment on above: Test performed by gl ucose meter. Results may be 10%-15% lower than serum/plasma values. (CLIA ID [id number]) Interpretation and review of laboratory results Abnormal [facility] Work Phone: Test Performed by [facility], [address] [place] [id number] [facility] Work Phone: [facility] Work Phone: ECHO Pharmacological Stress TestOrdered By: Raeann Holland on 05-11-2021 STRESS ECHOCARDIOGRA M Dobutamine PATIENT: Kevin Griffith STUDY DATE: 05/11/2021 : 1945 AGE: 75 HT/WT: 177.8 cm (70 123.2 kg in) (271 lb) GENDER: M BP: 149 / 83 LOCATION: [facility] PATIENT Outpatient [facility] STATUS: Medical Center *ORDERING PHYSICIAN: * Amalia, *FELLOW: * Wes Montilla MD *SUPERVISING PHYSICIAN: * *RN: * Bessie Duarte Diana *READING PHYSICIAN: * Donnell Valdes MD, *STUDENT OFFICER: * Dai Burnette [facility] -- INDICATIONS: Pre-operative. Shortness of breath. Abnormal [...] was augmented by the addition of hand resident service coordinator. The infusion was terminated after achieving the [...] (84) + + (more content not included)... [facility] Work Phone: Brandyn, [employer] Incoming Cardiology Results From [facility]/Ottoniel - 05/11/2021 4:29 PM EDT STRESS ECHOCARDIOGRAM Dobutamine PATIENT: Kevin Griffith STUDY DATE: 05/11/2021 : 1945 AGE: 75 HT/WT: 177.8 cm (70 123.2 kg in) (271 lb) GENDER: M BP: 149 / 83 LOCATION: [employer] PATIENT Outpatient [facility] STATUS: Medical Center *ORDERING PHYSICIAN: Amina Holland, *FELLOW: * Wes Montilla MD *SUPERVISING PHYSICIAN: * *RN: * Bessie Duarte Diana *READING PHYSICIAN: * Donnell Valdes MD, *STUDENT OFFICER: * Dai Burnette [facility] -- INDICATIONS: Pre-operative. Shortness of breath. Abnormal [...] was augmented by the addition of hand resident service coordinator. The infusion was terminated after achieving the [...] an appropriate blo (more content not included)... [employer] Work Phone: [employer] Phone: Echo Dobutamine Stress Echo w/wo Conton 05-11-2021 Echo Dobutamine Stress Echo w/wo Cont Patient Name: KEVIN GRIFFITH Ultrasound ACCESSION EXAM DATE/TIME PROCEDURE ORDERING PROVIDER [id number] 05/11/2021 11:00 EDT Echo Dobutamine Stress [facility] Echo w/wo Cont Reason For Exam (Echo Dobutamine Stress Echo w/wo Cont) pre op testing, abnormal EKG, shortness of breath Report STRESS ECHOCARDIOGRAM Dobutamine PATIENT: Kevin Griffith STUDY DATE: 05/11/2021 : 1945 AGE: 75 HT/WT: 177.8 cm (70 123.2 kg in) (271 lb) GENDER: M BP: 149 / 83 LOCATION: [facility] PATIENT Outpatient [facility] STATUS: Medical Center *ORDERING PHYSICIAN: * Amalia, *FELLOW: * Wes Montilla MD *SUPERVISING PHYSICIAN: * *RN: * Bessie Duarte Diana *READING PHYSICIAN: * Donnell Valdes MD, *STUDENT OFFICER: * Dai Burnette [facility] -- INDICATIONS: Pre-operative. Shortness of breath. Abnormal [...] was augmented by the addition of hand resident service coordinator. The infusion was terminated after achieving the [...] --+ +-- (more content not included)... Normal [facility] CBCOrdered By: Raeann murillo on 05-05-2021 Hematocrit (Bld) [Volume fraction] 46.8 % 40.0 - 52.0 % [employer] Phone: 222 Hemoglobin.gastrointestin al spec 1 Ql (Stl) 15.9 g/dL 13.0 - 18.0 g/dL [employer] Phone: Interpretation and review of laboratory results Abnormal [employer] Phone: MCH (RBC) [Entitic mass] 31.9 pg 26. 0 - 34.0 pg [employer] Phone: MCHC (RBC) [Mass/Vol] 34.0 % 32.0 - 36.0 % [employer] Phone: MCV (RBC) [Entitic vol] 94.0 fL 80.0 - 98.0 fL [employer] Phone: Platelet distribution width (Bld) [Ratio] 13.6 % 11.5 - 14.5 % [employer] Phone: Platelet mean volume (Bld) [Entitic vol] 9.0 fL 7.4 - 10.4 fL [employer] Phone: 222 Platelets (Bld) [#/Vol] 287 10*3/uL 140 - 440 10*3/uL [employer] Work Phone: 222 RBC (Bld) [#/Vol] 4.98 10*6/uL 4.40 - 5.9 0 10*6/uL [employer] Work Phone: 222 WBC (Bld) [#/Vol] 11.0 10*3/uL High 3.6 - 10.7 10*3/uL [employer] Phone: 222 Test Performed by [facility] [employer] [facility], [address] [place] [id number] [facility] Work Phone: [facility] Work Phone: Comp Panel with Mg Reflexon 05-05-2021 ALP [Catalytic activity/Vol] 74 U/L Normal 38-126 [facility] Comment on above: Performed By: #### C MP3M, HEMOG #### [facility] [address], [place] ALT [Catalytic activity/Vol] 38 U/L Normal 0-49 [facility] Comment on above: Result Comment: The ALT test is performed by an updated assay method. Please note that the reference intervals have been changed and are now sex specific. Performed By: #### C MP3M, HEMOG #### [facility] [address], [place] AST [Catalytic activity/Vol] 28 U/L Normal 15-46 [facility] Comment on above: Performed By: #### C MP3M, HEMOG #### [facility] [address], [place] Calcium [Mass/Vol] 9.6 mg/dL Normal 8.4-10.4 [facility] Comment on above: Performed By: #### C MP3M, HEMOG #### [facility] [address], [place] Glucose [Mass/Vol] 55 mg/dL Low 70-100 [facility] Comment on above: Performed By: #### C MP3M, HEMOG #### [facility] [address], [place] Protein [Mass/Vol] 8.1 g/dL Normal 6.3-8.2 [facility] Comment on above: Performed By: #### C MP3M, HEMOG #### [facility] [address], [place] Urea nitrogen [Mass/Vol] 23 mg/dL High 7-20 [facility] Comment on above: Performed By: #### C MP3M, HEMOG #### [facility] [address], [place] Anion gap [Moles/Vol] 9 mmol/L Normal 3-13 [facility] Comment on above: Performed By: #### C MP3M, HEMOG #### [facility] [address], [place] Bilirubin [Mass/Vol] 1.3 mg/dL Normal 0.2-1.3 [facility] Comment on above: Performed By: #### C MP3M, HEMOG #### [facility] [address], [place] CO2 [Moles/Vol] 30 mmol/L Normal 22-30 [facility] Comment on above: Performed By: #### C MP3M, HEMOG #### [facility] [address], [place] Creatinine [Mass/Vol] 1.02 mg/dL Normal 0.52-1.25 [facility] Comment on above: Performed By: #### C MP3M, HEMOG #### [facility] [address], [place] GFR/1.73 sq M.predicted among blacks MDRD (S/P/Bld) [Vol rate/Area] 81.9 mL/min/{1.73_m2} Normal >60 [facility] Comment on above: Performed By: #### C MP3M, HEMOG #### [facility] [address], [place] GFR/1.73 sq M.predicted among non-blacks MDRD (S/P/Bld) [Vol rate/Area] 70.7 mL/min/{1.73_m2} Normal >60 [facility] Comment on above: Result Comment: KDIG [...] Performed By: #### C MP3M, HEMOG #### [facility] [address] [place] [address] Albumin [Mass/Vol] 4.8 g/dL Normal 3.5-5.0 [facility] Comment on above: Performed By: #### C MP3M, HEMOG #### [facility] [address] [place] [address] Chloride [Moles/Vol] 101 mmol/L Normal 98-107 [facility] Comment on above: Performed By: #### C MP3M, HEMOG #### [facility] [address] [place] [address] Potassium [Moles/Vol] 3.9 mmol/L Normal 3.5-5.1 [facility] Comment on above: Performed By: #### C MP3M, HEMOG #### [facility] [address] [place] [address] Sodium [Moles/Vol] 140 mmol/L Normal 135-145 [facility] Comment on above: Performed By: #### C MP3M, HEMOG #### [facility] [address] [place] [address] Comprehensive Metabolic Pane l w/ Reflex to MGOrdered By: Raeann Holland on 05-05-2021 Albumin [Mass/Vol] 4.8 g/dL 3.5 - 5.0 g/dL [facility] Work Phone: ALP (Bld) [Catalytic activity/Vol] 74 U/L 38 - 126 U/L [facility] Work Phone: ALT [Catalytic activity/Vol] 38 U/L 0 - 49 U/L [facility] Work Phone: Comment on above: The ALT test is perf ormed by an updated assay method. Please note that the reference intervals have been changed and are now sex specific. Anion gap [Moles/Vol] 9 mmol/L 3 - 13 mmol/L [facility] Work Phone: AST [Catalytic activity/Vol] 28 U/L 15 - 46 U/L [facility] Work Phone: [phone] Bilirubin [Mass/Vol] 1.3 mg/dL 0.2 - 1 .3 mg/dL [facility] Work Phone: [phone] Calcium [Mass/Vol] 9.6 mg/dL 8.4 - 10. 4 mg/dL [facility] Work Phone: [phone] Chloride [Moles/Vol] 101 mmol/L 98 - 10 7 mmol/L [facility] Work Phone: [phone] CO2 [Moles/Vol] 30 mmol/L 22 - 30 mmol/L [facility] Work Phone: [phone] Creatinine [Mass/Vol] 1.02 mg/dL 0.52 - 1.25 mg/dL [facility] Work Phone: [phone] EGFR IF NonAfrican Malagasy 70.7 mL/min >60 [facility] Work Phone: [phone] Comment on above: KDIGO guidelines pro [...] fraction] 8.1 g/dL 6.3 - 8.2 g/dL [facility] Work Phone: GFR/1.73 sq M.predicted among blacks MDRD (S/P/Bld) [Vol rate/Area] 81.9 mL/min/{1.73_m2} >60 [facility] Work Phone: Glucose [Mass/Vol] 55 mg/dL Low 70 - 100 mg/dL [facility] Work Phone: [phone] Interpretation and review of laboratory results Abnormal [facility] Work Phone: Potassium [Moles/Vol] 3.9 mmol/L 3.5 - 5.1 mmol/L [facility] Work Phone: [phone] Sodium [Moles/Vol] 140 mmol/L 135 - 145 mmol/L [facility] Work Phone: Urea nitrogen (BldV) [Mass/Vol] 23 mg/dL High 7 - 20 mg/dL [facility] Work Phone: [phone] Test Performed by [facility], [address] [place] [id number] [facility] Work Phone: [phone] [facility] Work Phone: Hemogramon 05-05-2021 Erythrocyte distribution width (RBC) [Ratio] 13.6 % Normal 11.5-14.5 [facility] Comment on above: Performed By: #### C MP3M, HEMOG #### [address] [address] Hematocrit (Bld) [Volume fraction] 46.8 % Normal 40.0-52.0 [facility] Comment on above: Performed By: #### C MP3M, HEMOG #### [address] [address] Hemoglobin (Bld) [Mass/Vol] 15.9 g/dL Normal 13.0-18.0 [facility] Comment on above: Performed By: #### C MP3M, HEMOG #### [address] [address] MCH (RBC) [Entitic mass] 31.9 pg Normal 26.0-34.0 [facility] Comment on above: Performed By: #### C MP3M, HEMOG #### [address] [address] MCHC 34.0 % Normal 32.0-36.0 [facility] Comment on above: Performed By: #### C MP3M, HEMOG #### [place] [address], [place] MCV (RBC) [Entitic vol] 94.0 fL Normal 80.0-98.0 [facility] Comment on above: Performed By: #### C MP3M, HEMOG #### [place] [address], [place] Platelet mean volume (Bld) [Entitic vol] 9.0 fL Normal 7.4-10.4 [facility] Comment on above: Performed By: #### C MP3M, HEMOG #### [place] [address] [place], [place] Platelets (Bld) [#/Vol] 287 10*3/uL Normal 140-440 [facility] Comment on above: Performed By: #### C MP3M, HEMOG #### [place] [address] [place], [place] RBC (Bld) [#/Vol] 4.98 10*6/uL Normal 4.40-5.90 [facility] Comment on above: Performed By: #### C MP3M, HEMOG #### [place] [address] [place], [place] WBC (Bld) [#/Vol] 11.0 10*3/uL High 3.6-10.7 [facility] Comment on above: Performed By: #### C MP3M, HEMOG #### [place] [address], [place] TS GELon 05-05-2021 TS GEL ABO Group: A Rh, Gel: POS Antibody Screen Gel: NEG Normal [facility] Comment on above: Performed By: #### T SGL #### [facility] TYPE AND SCREENOrdered By: Khushbu Holland on 05-05-2021 ABO Grouping A [facility] Work Phone: Rh Type Positive [facility] Work Phone: Test Performed by [facility], [facility] [place] [facility] Work Phone: [facility] Work Phone: Otheron 08-16-2006 CONVERTED ELECTRONIC SIGNATURE KENNY SIMPSON M.D., PATHOLOGIST (Electronic signature on file) Final Signed Out: 08/16/2006 12:36 [facility] CONVERTED FINAL DIAGNOSIS LEFT KNEE, EXC ISION - DEGENERATIVE CHANGES OF ARTICULAR CARTILAGE CONSISTENT WITH OSTEOARTHRITIS. [facility] CONVERTED ORDERING PROVIDER Ordering Provider: WYATT NOBLE [facility] Otheron 02-06-2006 CONVERTED ELECTRONIC SIGNATURE BILL MELTON M.D., PATHOLOGIST (Electronic signature on file) Final Signed Out: 02/06/2006 15:13 [facility] CONVERTED FINAL DIAGNOSIS LEFT KNEE, EXC ISION - FIBROCARTILAGE WITH DEGENERATIVE CHANGES. SYNOVIUM WITH NONSPECIFIC REACTIVE CHANGES. [facility] CONVERTED ORDERING PROVIDER Ordering Provider: WYATT NOBLE [facility] Vital Signs Date Time Vital Sign Value Performing Clinician Facility 05-11-2025 19:06-0400 Body temperature 98.4 [degF] Dr. Ron Cooley MD Work Phone: [facility] 05-11-2025 19:06-0400 Diastolic blood pressure 69 mm[Hg] Dr. Ron Cooley MD Work Phone: [facility] 05-11-2025 19:06-0400 Heart rate 72 /min Dr. Ron Cooley MD Work Phone: [facility] 05-11-2025 19:06-0400 Respiratory rate 16 /min Dr. Ron Cooley MD Work Phone: [facility] 05-11-2025 19:06-0400 SaO2% (BldA) [Mass fraction] 97 % Dr. Ron Cooley MD Work Phone: [facility] 05-11-2025 19:06-0400 Systolic blood pressure 138 mm[Hg] Dr. Ron Cooley MD Work Phone: [facility] 05-11-2025 17:49-0400 Body height 177.[address] Ron Cooley MD Work Phone: [facility] 05-11-2025 17:49-0400 Body mass index (BMI) [Ratio] 36.6 kg/m2 Dr. Ron Cooley MD Work Phone: [facility] 05-11-2025 17:49-0400 Body weight [address] Ron Cooley MD Work Phone: [facility] 04-13-2025 22:27-0400 Diastolic blood pressure 75 mm[Hg] FINA Powell MD Work Phone: [facility] 04-13-2025 22:27-0400 Heart rate 77 /min FINA Powell MD Work Phone: [facility] 04-13-2025 22:27-0400 Respiratory rate 20 /min FINA Powell MD Work Phone: [facility] 04-13-2025 22:27-0400 SaO2% (BldA) [Mass fraction] 97 % FINA Powell MD Work Phone: [facility] 04-13-2025 22:27-0400 Systolic blood pressure 133 mm[Hg] FINA Powell MD Work Phone: [facility] 04-13-2025 20:40-0400 Body temperature 98.01 [degF] FINA Powell MD Work Phone: [facility] 04-09-2025 13:13-0400 Body temperature 96.8 [degF] Dr. Ron Cooley MD Work Phone: [facility] 04-09-2025 13:13-0400 Diastolic blood pressure 65 mm[Hg] Dr. Ron Cooley MD Work Phone: [facility] 04-09-2025 13:13-0400 Heart rate 76 /min Dr. Ron Cooley MD Work Phone: [facility] 04-09-2025 13:13-0400 Respiratory rate 18 /min Dr. Ron Cooley MD Work Phone: [facility] 04-09-2025 13:13-0400 SaO2% (BldA) [Mass fraction] 98 % Dr. Ron Cooley MD Work Phone: [facility] 04-09-2025 13:13-0400 Systolic blood pressure 145 mm[Hg] Dr. Ron Cooley MD Work Phone: 1(463)086-727156 [place] [address] 04-09-2025 11:18-0400 Body height [address] Ron Cooley MD Work Phone: 2(209)444-273356 [place] [address] 04-09-2025 11:18-0400 Body mass index (BMI) [Ratio] 35.8 kg/m2 Dr. Ron Cooley MD Work Phone: 7(438)495-156656 [place] [address] 04-09-2025 11:18-0400 Body weight 113.[address] Ron Cooley MD Work Phone: 9(136)901-697315 [place] [address] 03-20-2025 16:23-0400 Diastolic blood pressure 78 mm[Hg] Dr. Ron Cooley MD Work Phone: 6(409)460-248715 [place] [address] 03-20-2025 16:23-0400 Systolic blood pressure 164 mm[Hg] Dr. Ron Cooley MD Work Phone: 8(995)868-399415 [place] [address] 03-20-2025 15:16-0400 Body height 177.[address] Ron Cooley MD Work Phone: 6(803)299-548615 [place] [address] 03-20-2025 15:16-0400 Body mass index (BMI) [Ratio] 34.9 kg/m2 Dr. Ron Cooley MD Work Phone: 0(835)685-615356 [place] [address] 03-20-2025 15:16-0400 Body temperature 98.2 [degF] Dr. Ron Cooley MD Work Phone: 9(416)819-378381 [address] 03-20-2025 15:16-0400 Body weight 110.[address] Ron Cooley MD Work Phone: 7(532)734-240056 [place] [address] 03-20-2025 15:16-0400 Diastolic blood pressure 72 mm[Hg] Dr. Ron Cooley MD Work Phone: 3(505)823-328581 [address] 03-20-2025 15:16-0400 Heart rate 86 /min Dr. Ron Cooley MD Work Phone: 5(208)625-512756 [place] [address] 03-20-2025 15:16-0400 Respiratory rate 15 /min Dr. Ron Cooley MD Work Phone: 0(734)990-848215 [place] [address] 03-20-2025 15:16-0400 SaO2% (BldA) [Mass fraction] 95 % Dr. Ron Cooley MD Work Phone: 7(373)018-977215 [place] [address] 03-20-2025 15:16-0400 Systolic blood pressure 134 mm[Hg] Dr. Ron Cooley MD Work Phone: 8(470)180-624415 [place] [address] 02-14-2025 21:12-0400 Body height 177.[address] Ron Cooley MD Work Phone: 3(199)344-264615 [place] [address] 02-14-2025 21:12-0400 Body temperature 97.3 [degF] Dr. Ron Cooley MD Work Phone: 2(480)610-599215 [place] [address] 02-14-2025 21:12-0400 Diastolic blood pressure 60 mm[Hg] Dr. Ron Cooley MD Work Phone: 5(745)085-942115 [place] [address] 02-14-2025 21:12-0400 Heart rate 93 /min Dr. Ron Cooley MD Work Phone: 1(772)680-875415 [place] [address] 02-14-2025 21:12-0400 Respiratory rate 18 /min Dr. Ron Cooley MD Work Phone: 6(424)973-309915 [place] [address] 02-14-2025 21:12-0400 SaO2% (BldA) [Mass fraction] 92 % Dr. Ron Cooley MD Work Phone: 2(455)777-481615 [place] [address] 02-14-2025 21:12-0400 Systolic blood pressure 137 mm[Hg] Dr. Ron Cooley MD Work Phone: 5(004)226-809715 [place] [address] 02-06-2025 14:25-0400 Diastolic blood pressure 64 mm[Hg] Dr. Ron Cooley MD Work Phone: 3(344)899-212715 [place] [address] 02-06-2025 14:25-0400 Systolic blood pressure 116 mm[Hg] Dr. Ron Cooley MD Work Phone: 7(419)340-864456 [place] [address] 02-06-2025 12:56-0400 Body temperature 97.8 [degF] Dr. Ron Cooley MD Work Phone: 2(117)873-225015 [place] [address] 02-06-2025 12:56-0400 Body weight 110.[address] Ron Cooley MD Work Phone: 1(924)911-554315 [place] [address] 02-06-2025 12:56-0400 Heart rate 82 /min Dr. Ron Cooley MD Work Phone: 3(657)246-653215 [place] [address] 02-06-2025 12:56-0400 Respiratory rate 17 /min Dr. Ron Cooley MD Work Phone: 9(877)952-498315 [place] [address] 02-06-2025 12:56-0400 SaO2% (BldA) [Mass fraction] 95 % Dr. Ron Cooley MD Work Phone: 1(155)752-599715 [place] [address] 12-10-2024 14:30-0500 Diastolic blood pressure 70 mm[Hg] Dr. Ron Cooley MD Work Phone: 0(364)696-355315 [place] [address] 12-10-2024 14:30-0500 Systolic blood pressure 130 mm[Hg] Dr. Ron Cooley MD Work Phone: 8(894)333-302115 [place] [address] 12-10-2024 10:36-0500 Body height 177.[address] Ron Cooley MD Work Phone: 6(773)266-530315 [place] [address] 12-10-2024 10:36-0500 Body mass index (BMI) [Ratio] 34.7 kg/m2 Dr. Ron Cooley MD Work Phone: 1(638)647-958515 [place] [address] 12-10-2024 10:36-0500 Body temperature 97.7 [degF] Dr. Ron Cooley MD Work Phone: 3(887)870-755615 [place] [address] 12-10-2024 10:36-0500 Body weight 109.[address] Ron Cooley MD Work Phone: 4(727)066-749215 [place] [address] 12-10-2024 10:36-0500 Heart rate 77 /min Dr. Ron Cooley MD Work Phone: [facility] 12-10-2024 10:36-0500 Respiratory rate 14 /min Dr. Ron Cooley MD Work Phone: [facility] 12-10-2024 10:36-0500 SaO2% (BldA) [Mass fraction] 97 % Dr. Ron Cooley MD Work Phone: 1(282)419-774056 [place] [address] 12-05-2024 19:35-0500 Body temperature 98 [degF] Dr. Ron Cooley MD Work Phone: 9(879)379-021881 [address] 12-05-2024 19:35-0500 Diastolic blood pressure 75 mm[Hg] Dr. Ron Cooley MD Work Phone: 3(264)398-168556 [place] [address] 12-05-2024 19:35-0500 Heart rate 67 /min Dr. Ron Cooley MD Work Phone: 0(665)811-347356 [place] [address] 12-05-2024 19:35-0500 Respiratory rate 18 /min Dr. Ron Cooley MD Work Phone: 4(866)198-946781 [address] 12-05-2024 19:35-0500 SaO2% (BldA) [Mass fraction] 97 % Dr. Ron Cooley MD Work Phone: 6(895)619-859256 [place] [address] 12-05-2024 19:35-0500 Systolic blood pressure 118 mm[Hg] Dr. Ron Cooley MD Work Phone: 3(412)475-763456 [place] [address] 12-05-2024 17:15-0500 Body mass index (BMI) [Ratio] 34.5 kg/m2 Dr. Ron Cooley MD Work Phone: 9(101)488-596456 [place] [address] 12-05-2024 17:15-0500 Body weight 109.[address] Ron Cooley MD Work Phone: 0(999)413-016356 [place] [address] 10-12-2024 13:02-0500 Body temperature 98.2 [degF] Dr. Ron Cooley MD Work Phone: 6(957)570-452356 [place] [address] 10-12-2024 13:02-0500 Diastolic blood pressure 84 mm[Hg] Dr. Ron Cooley MD Work Phone: [facility] 10-12-2024 13:02-0500 Heart rate 78 /min Dr. Ron Cooley MD Work Phone: [facility] 10-12-2024 13:02-0500 Respiratory rate 16 /min Dr. Ron Cooley MD Work Phone: 8(640)541-234056 [place] [address] 10-12-2024 13:02-0500 SaO2% (BldA) [Mass fraction] 95 % Dr. Ron Cooley MD Work Phone: 8(440)925-211556 [place] [address] 10-12-2024 13:02-0500 Systolic blood pressure 121 mm[Hg] Dr. Ron Cooley MD Work Phone: 3(500)075-678756 [place] [address] 10-12-2024 11:16-0500 Body mass index (BMI) [Ratio] 35.6 kg/m2 Dr. Ron Cooley MD Work Phone: 1(892)084-511656 [place] [address] 10-12-2024 11:16-0500 Body weight 112.[address] Ron Cooley MD Work Phone: 9(976)650-867456 [place] [address] 03-25-2024 14:24-0400 Body height 177.[address] Ron Cooley Work Phone: 2(962)627-277356 [place] [address] 03-25-2024 14:24-0400 Body mass index (BMI) [Ratio] 36.3 kg/m2 Dr. Ron Cooley Work Phone: [facility] 03-25-2024 14:24-0400 Body temperature 98 [degF] Dr. Ron Cooley Work Phone: [facility] 03-25-2024 14:24-0400 Body weight 114.[address] Ron Cooley Work Phone: [facility] 03-25-2024 14:24-0400 Diastolic blood pressure 58 mm[Hg] Dr. Ron Cooley Work Phone: 5(637)086-794156 [place] [address] 03-25-2024 14:24-0400 Heart rate 78 /min Dr. Ron Cooley Work Phone: [facility] 03-25-2024 14:24-0400 Respiratory rate 17 /min Dr. Ron Cooley Work Phone: [facility] 03-25-2024 14:24-0400 SaO2% (BldA) [Mass fraction] 94 % Dr. Ron Cooley Work Phone: [facility] 03-25-2024 14:24-0400 Systolic blood pressure 124 mm[Hg] Dr. Ron Cooley Work Phone: [facility] 11-23-2023 14:02-0500 Body height 177.[address] Ron Cooley Work Phone: [facility] 11-23-2023 14:02-0500 Body mass index (BMI) [Ratio] 37 kg/m2 Dr. Ron Cooley Work Phone: [facility] 11-23-2023 14:02-0500 Body temperature 97.8 [degF] Dr. Ron Cooley Work Phone: [facility] 11-23-2023 14:02-0500 Body weight 117.[address] Ron Cooley Work Phone: [facility] 11-23-2023 14:02-0500 Diastolic blood pressure 84 mm[Hg] Dr. Ron Cooley Work Phone: [facility] 11-23-2023 14:02-0500 Heart rate 75 /min Dr. Ron Cooley Work Phone: [facility] 11-23-2023 14:02-0500 Respiratory rate 17 /min Dr. Ron Cooley Work Phone: [facility] 11-23-2023 14:02-0500 SaO2% (BldA) [Mass fraction] 93 % Dr. Ron Cooley Work Phone: [facility] 11-23-2023 14:02-0500 Systolic blood pressure 112 mm[Hg] Dr. Ron Cooley Work Phone: [facility] 08-07-2023 14:26-0400 Body height 177.[address] Ron Cooley Work Phone: [facility] 08-07-2023 14:26-0400 Body mass index (BMI) [Ratio] 38 kg/m2 Dr. Ron Cooley Work Phone: [facility] 08-07-2023 14:26-0400 Body temperature 98.4 [degF] Dr. Ron Cooley Work Phone: [facility] 08-07-2023 14:26-0400 Body weight 120.[address] Ron Cooley Work Phone: [facility] 08-07-2023 14:26-0400 Diastolic blood pressure 88 mm[Hg] Dr. Ron Cooley Work Phone: [facility] 08-07-2023 14:26-0400 Heart rate 74 /min Dr. Ron Cooley Work Phone: [facility] 08-07-2023 14:26-0400 Respiratory rate 17 /min Dr. Ron Cooley Work Phone: [facility] 08-07-2023 14:26-0400 SaO2% (BldA) [Mass fraction] 96 % Dr. Ron Cooley Work Phone: [facility] 08-07-2023 14:26-0400 Systolic blood pressure 138 mm[Hg] Dr. Ron Cooley Work Phone: [facility] 04-12-2023 10:15-0400 Body height 177.[address] Ron Cooley Work Phone: [facility] 04-12-2023 10:15-0400 Body mass index (BMI) [Ratio] 37 kg/m2 Dr. Ron Cooley Work Phone: [facility] 04-12-2023 10:15-0400 Body weight 117.[address] Ron Cooley Work Phone: [facility] 04-12-2023 10:15-0400 Diastolic blood pressure 70 mm[Hg] Dr. Ron Cooley Work Phone: [facility] 04-12-2023 10:15-0400 Heart rate 60 /min Dr. Ron Cooley Work Phone: [facility] 04-12-2023 10:15-0400 Respiratory rate 18 /min Dr. Ron Cooley Work Phone: [facility] 04-12-2023 10:15-0400 Systolic blood pressure 119 mm[Hg] Dr. Ron Cooley Work Phone: [facility] 04-11-2023 21:17-0400 Diastolic blood pressure 74 mm[Hg] Dr. Ron Cooley Work Phone: [facility] 04-11-2023 21:17-0400 Systolic blood pressure 124 mm[Hg] Dr. Ron Cooley Work Phone: [facility] 04-11-2023 21:16-0400 Heart rate 61 /min Dr. Ron Cooley Work Phone: [facility] 04-11-2023 09:55-0400 Body mass index (BMI) [Ratio] 37.3 kg/m2 Dr. Ron Cooley Work Phone: [facility] 04-11-2023 09:55-0400 Body temperature 97.8 [degF] Dr. Ron Cooley Work Phone: [facility] 04-11-2023 09:55-0400 Body weight 118.[address] Ron Cooley Work Phone: [facility] 04-11-2023 09:55-0400 Diastolic blood pressure 66 mm[Hg] Dr. Ron Cooley Work Phone: [facility] 04-11-2023 09:55-0400 Heart rate 70 /min Dr. Ron Cooley Work Phone: [facility] 04-11-2023 09:55-0400 Respiratory rate 17 /min Dr. Ron Cooley Work Phone: [facility] 04-11-2023 09:55-0400 SaO2% (BldA) [Mass fraction] 98 % Dr. Ron Cooley Work Phone: [facility] 04-11-2023 09:55-0400 Systolic blood pressure 140 mm[Hg] Dr. Ron Cooley Work Phone: [facility] 02-11-2023 12:46-0400 Body height 177.8 cm [facility] 02-11-2023 12:46-0400 Body mass index (BMI) [Ratio] 36.8 kg/m2 [facility] 02-11-2023 12:46-0400 Body temperature 97 [degF] [facility] 02-11-2023 12:46-0400 Body weight 116.52 kg [facility] 02-11-2023 12:46-0400 Diastolic blood pressure 68 mm[Hg] [facility] 02-11-2023 12:46-0400 Heart rate 82 /min [facility] 02-11-2023 12:46-0400 Respiratory rate 18 /min [facility] 02-11-2023 12:46-0400 SaO2% (BldA) [Mass fraction] 97 % [facility] 02-11-2023 12:46-0400 Systolic blood pressure 149 mm[Hg] [facility] 12-12-2022 13:47-0500 Body height 177.8 cm Leni Ruiz APRN.RIGHT OF WAY SUPERVISOR Work Phone: [facility] 12-12-2022 13:47-0500 Body weight 118.3 kg Leni Ruiz APRN.[employer] SUPERVISOR Work Phone: [facility] 12-12-2022 13:47-0500 SaO2% (BldA) [Mass fraction] 96 % Leni Ruiz APRN.[employer] SUPERVISOR Work Phone: [facility] 08-04-2022 13:56-0400 Diastolic blood pressure 86 mm[Hg] Jaylyn Nieves MD Work Phone: [facility] 08-04-2022 13:56-0400 Heart rate 107 /min Jaylyn Nieves MD Work Phone: [facility] 08-04-2022 13:56-0400 Respiratory rate 16 /min Jaylyn Nieves MD Work Phone: [facility] 08-04-2022 13:56-0400 SaO2% (BldA) [Mass fraction] 95 % Jaylyn Nieves MD Work Phone: [facility] 08-04-2022 13:56-0400 Systolic blood pressure 109 mm[Hg] Jaylyn Nieves MD Work Phone: [facility] 04-12-2022 08:46-0400 Body height 177.[address] Patricia Mcgowan Work Phone: [facility] Work Phone: 04-12-2022 08:46-0400 Body mass index (BMI) [Ratio] 38.4 kg/m2 Dr. Patricia Mcgowan Work Phone: [facility] Work Phone: 04-12-2022 08:46-0400 Body weight 121.[address] Patricia Mcgowan Work Phone: [facility] Work Phone: 04-12-2022 08:46-0400 Diastolic blood pressure 71 mm[Hg] Dr. Patricia Mcgowan Work Phone: [facility] Work Phone: 04-12-2022 08:46-0400 Heart rate 86 /min Dr. Patricia Mcgowan Work Phone: [facility] Work Phone: 04-12-2022 08:46-0400 Respiratory rate 16 /min Dr. Patricia Mcgowan Work Phone: [facility] Work Phone: 04-12-2022 08:46-0400 SaO2% (BldA) [Mass fraction] 97 % Dr. Patricia Mcgowan Work Phone: [facility] Work Phone: 04-12-2022 08:46-0400 Systolic blood pressure 113 mm[Hg] Dr. Patricia Mcgowan Work Phone: [facility] Work Phone: 04-12-2022 08:46-0400 Body height 177.[address] Patricia Mcgowan Work Phone: [facility] Work Phone: 04-12-2022 08:46-0400 Body mass index (BMI) [Ratio] 38.4 kg/m2 Dr. Patricia Mcgowan Work Phone: [facility] Work Phone: 04-12-2022 08:46-0400 Body weight 121.[address] Patricia Mcgowan Work Phone: [facility] Work Phone: 04-12-2022 08:46-0400 Diastolic blood pressure 71 mm[Hg] Dr. Patricia Mcgowan Work Phone: [facility] Work Phone: 04-12-2022 08:46-0400 Heart rate 86 /min Dr. Patricia Mcgowan Work Phone: [facility] Work Phone: 04-12-2022 08:46-0400 Respiratory rate 16 /min Dr. Patricia Mcgowan Work Phone: [facility] [facility] Work Phone: 04-12-2022 08:46-0400 SaO2% (BldA) [Mass fraction] 97 % Dr. Patricia Mcgowan Work Phone: [facility] Work Phone: 04-12-2022 08:46-0400 Systolic blood pressure 113 mm[Hg] Dr. Patricia Mcgowan Work Phone: [facility] Work Phone: 03-29-2022 12:09-0400 SaO2% (BldA) [Mass fraction] 98 % Jaylyn Nieves MD Work Phone: [facility] 03-17-2022 15:50-0400 Diastolic blood pressure 77 mm[Hg] Jaylyn Nieves MD Work Phone: [facility] 03-17-2022 15:50-0400 Systolic blood pressure 120 mm[Hg] Jaylyn Nieves MD Work Phone: [facility] 03-17-2022 14:51-0400 Body height 177.8 cm Jaylyn Nieves MD Work Phone: [facility] 03-17-2022 14:51-0400 Body weight 125.76 kg Jaylyn Nieves MD Work Phone: [facility] 03-17-2022 14:51-0400 Heart rate 101 /min Jaylyn Nieves MD Work Phone: [facility] 03-17-2022 14:51-0400 SaO2% (BldA) [Mass fraction] 98 % Jaylyn Nieves MD Work Phone: [facility] 01-28-2022 02:11-0500 Diastolic blood pressure 89 mm[Hg] Dr. Patricia Mcgowan Work Phone: [facility] Work Phone: 01-28-2022 02:11-0500 Heart rate 96 /min Dr. Patricia Mcgowan Work Phone: [facility] Work Phone: 01-28-2022 02:11-0500 Respiratory rate 18 /min Dr. Patricia Mcgowan Work Phone: [facility] Work Phone: 01-28-2022 02:11-0500 SaO2% (BldA) [Mass fraction] 94 % Dr. Patricia Mcgowan Work Phone: [facility] Work Phone: 01-28-2022 02:11-0500 Systolic blood pressure 158 mm[Hg] Dr. Patricia Mcgowan Work Phone: [facility] Work Phone: 01-28-2022 01:22-0500 Body mass index (BMI) [Ratio] 399.4 kg/m2 Dr. Patricia Mcgowan Work Phone: [facility] Work Phone: 01-28-2022 01:22-0500 Body temperature 97.6 [degF] Dr. Patricia Mcgowan Work Phone: [facility] Work Phone: 01-28-2022 01:22-0500 Body weight [address] Patricia Mcgowan Work Phone: [facility] Work Phone: 01-28-2022 01:11-0500 Diastolic blood pressure 89 mm[Hg] [facility] Work Phone: 01-28-2022 01:11-0500 Heart rate 96 /min [facility] Work Phone: 01-28-2022 01:11-0500 Respiratory rate 18 /min [facility] Work Phone: 01-28-2022 01:11-0500 SaO2% (BldA) [Mass fraction] 94 % [facility] Work Phone: 01-28-2022 01:11-0500 Systolic blood pressure 158 mm[Hg] [facility] Work Phone: 01-28-2022 00:22-0500 Body height 177.8 cm [facility] Work Phone: 01-28-2022 00:22-0500 Body mass index (BMI) [Ratio] 399.4 kg/m2 [facility] Work Phone: 01-28-2022 00:22-0500 Body temperature 97.6 [degF] [facility] Work Phone: 01-28-2022 00:22-0500 Body weight 1263 kg [facility] Work Phone: 10-05-2021 11:00-0500 Diastolic blood pressure 63 mm[Hg] Barb Morton MD Work Phone: [facility] Comment on above: Auto 10-05-2021 11:00-0500 Heart rate 99 /min Barb Morton MD Work Phone: [facility] 10-05-2021 11:00-0500 Systolic blood pressure 91 mm[Hg] Barb Morton MD Work Phone: [facility] Comment on above: Auto 10-05-2021 10:45-0500 Body weight 116.57 kg Barb Morton MD Work Phone: [facility] 05-19-2021 10:00-0400 Diastolic blood pressure 70 mm[Hg] Nii Altman MD Work Phone: [facility] Work Phone: 05-19-2021 10:00-0400 Heart [...] index (BMI) [Ratio] 38.88 kg/m2 Raeann Amalia CIGAR BRANDER - RIGHT OF WAY SUPERVISOR Work Phone: [facility] Work Phone: 05-11-2021 09:45-0400 Body weight 122.92 kg Raeann Amalia [employer]AR [employer] - [employer] SUPERVISOR Work Phone: [facility] Work Phone: Comment on [...] MD Work Phone: [facility] Work Phone: 05-05-2021 10:-040 Body height 177.8 cm Nii Altman MD Work Phone: [facility] Work Phone: 05-05-2021 10:-040 Body mass index (BMI) [Ratio] 38.88 kg/m2 Nii Altman MD Work Phone: [facility] Work Phone: 05-05-2021 10:0400 Body weight 122.92 kg Nii Altman MD Work Phone: [facility] Work Phone: Encounters Encounter Date Encounter Type Care Provider Facility Start: 05-26-2025 End: 05-26-[address] Ron Cooley MD Work Phone: -[facility] Start: 05-26-2025 End: 05-26-[address] Natasha Gregory MD -[facility] Start: 05-26-2025 End: 05-26-2025 ambulatory Natasha Gregory Facility:[facility] Start: 05-14-2025 End: 05-14-[address] Ron Cooley MD Work Phone: -Speech Therapy Start: 05-14-2025 End: 05-14-[address] Vick Santo MD -Speech Therapy Work Phone: Start: 05-14-[address] Olivier Santo MD -Speech Therapy Work Phone: Start: 05-11-2025 End: 05-11-2025 Emergency department patient visit Dr. Ron Cooley MD Work Phone: -Emergency Department Work Phone: Start: 05-09-2025 End: 05-09-[address] Ron Cooley MD Work Phone: [facility] Work Phone: Start: 05-09-2025 End: 05-09-[address] Vick Santo MD -Radiology [facility] Work Phone: Start: 05-09-2025 End: 05-09-2025 ambulatory Vick Santo Facility:[facility] Start: 05-07-[address] Olivier Santo MD -Speech Therapy Work Phone: Start: 04-13-2025 End: 04-13-2025 Emergency department patient visit Chetan Powell MD Work Phone: [facility] Comment on above: Facial laceration, i nitial encounter (Primary Dx); Fall, initial encounter; Open fracture of nasal bone, initial encounter Start: 04-09-2025 End: 04-09-2025 Emergency department patient visit Dr. Ron Cooley MD Work Phone: -Emergency Department Work Phone: Start: 04-03-2025 End: 04-03-[address] Ron Cooley MD -Laboratory [facility] Start: 04-03-2025 End: 04-03-2025 ambulatory NATASHA GREGORY MD Facility:[facility] Start: 04-03-2025 End: 04-03-2025 ambulatory Ron Cooley Facility:[facility] Start: 04-01-[address] Olivier Santo MD -Speech Therapy Work Phone: Start: 03-26-[address] Olivier Santo MD -Speech Therapy Work Phone: Start: 03-24-2025 End: 03-24-[address] Ron Cooley MD Work Phone: [facility] Work Phone: Start: 03-24-2025 End: 03-24-[address] Jose Perez MD -[facility] Work Phone: Start: 03-24-2025 End: 03-24-20[facility] Start: 03-20-2025 End: 03-20-[address] Vick Santo MD -[facility] Work Phone: Start: 03-20-2025 End: 03-20-2025 ambulatory Vick Santo Facility[facility] Start: 03-03-2025 End: 03-03-[address] Ron Cooley MD Work Phone: [facility] Work Phone: Start: 03-03-2025 End: 03-03-[address] Jose Perez MD -[facility] Start: 03-03-2025 End: 03-03-2025 ambulatory Ron Cooley Facility:[facility] Start: 02-25-[address] Olivier Santo MD -Speech Therapy Work Phone: Start: 02-20-2025 End: 02-20-[address] Ron Cooley MD Work Phone: [facility] Work Phone: Start: 02-20-2025 End: 02-20-[address] Natasha Gregory MD -[facility] Start: 02-20-2025 End: 02-20-2025 ambulatory Natasha Gregory Facility:[facility] Start: 02-14-2025 End: 02-14-2025 Emergency department patient visit Dr. Ron Cooley MD Work Phone: -Emergency Department Work Phone: Start: 02-06-2025 End: 02-06-[address] Vick Santo MD -[facility] Work Phone: Start: 02-06-2025 End: 02-06-2025 ambulatory Vick Santo Facility:[facility] Start: 01-21-2025 End: 01-21-[address] Ron Cooley MD Work Phone: [facility] Work Phone: Start: 01-21-2025 End: 01-21-[address] Ron Cooley MD -Radiology, [place] Work Phone: Start: 01-21-2025 End: 01-21-2025 ambulatory Ron Cooley Facility:[facility] Start: 12-10-2024 End: 12-10-[address] Vick Santo MD -[facility] Work Phone: Start: 12-10-2024 End: 12-10-2024 ambulatory Ron Cooley [facility] Start: 12-10-2024 End: 12-10-2024 ambulatory Ron Cooley Facility:[facility] Start: 12-05-2024 End: 12-05-2024 Emergency department patient visit Dr. Estuardo Mccormack DO -Emergency Department Work Phone: Start: 12-04-2024 End: 12-04-[address] [facility] Start: 12-04-2024 End: 12-04-2024 ambulatory Ron Cooley Facility:[facility] Start: 12-02-2024 End: 12-02-[address] Jose Perez MD -Radiology, [place] Work Phone: Start: 12-02-2024 End: 12-02-2024 ambulatory Ron Cooley Facility:[facility] Start: 10-28-2024 End: 10-28-[address] Natasha Gregory MD -Laboratory, [place] Work Phone: Start: 10-28-2024 End: 10-28-2024 ambulatory Natasha Gregory Facility:[facility] Start: 10-12-2024 End: 10-12-2024 Emergency department patient visit Dr. Osman Farooq MD -Emergency Department Work Phone: Start: 09-27-2024 End: 09-27-2024 ambulatory Ron Cooley Facility:[facility] Start: 09-20-2024 End: 09-20-2024 ambulatory [facility] Facility:[facility] Start: 09-02-2024 End: 09-02-2024 ambulatory Ron Cooley Facility:[facility] Start: 09-02-2024 End: 09-02-[facility]24 [facility] Start: 08-07-2024 End: 08-07-2024 ambulatory Ron Cooley Facility:[facility] Start: 06-27-2024 End: 06-27-2024 ambulatory Ron Cooley Facility:[facility] Start: 06-27-2024 End: 06-27-2024 ambulatory Natasha Gregory Facility:[facility] Start: 06-10-2024 End: 06-10-2024 ambulatory Whitley Traning Facility:[facility] Start: 03-25-2024 End: 03-25-[address] Ron Cooley Work Phone: [facility] Work Phone: Start: 03-25-2024 End: 03-25-[address] [facility] Work Phone: Start: 03-25-2024 End: 03-25-[address] Ron Cooley Work Phone: [facility] Work Phone: Start: 02-27-2024 End: 02-27-[address] Ron Cooley Work Phone: [facility] Work Phone: Start: 02-27-2024 End: 02-27-[address] Ron Cooley Work Phone: [facility] Start: 01-30-2024 End: 01-30-[address] Ron Cooley Work Phone: [facility] Work Phone: Start: 01-30-2024 End: 01-30-[address] Ron Cooley Work Phone: [facility] Work Phone: Start: 12-26-2023 End: 12-26-[address] Ron Cooley Work Phone: [facility] Work Phone: Start: 12-26-2023 End: 12-26-[address] Ron Cooley Work Phone: [facility] Work Phone: Start: 12-15-2023 End: 12-15-[address] Ron Cooley Work Phone: [facility] Work Phone: Start: 12-15-2023 End: 12-15-[address] Ron Cooley Work Phone: [facility] Work Phone: Start: 11-23-2023 End: 11-23-[address] Ron Cooley Work Phone: [facility] Start: 11-23-2023 End: 11-23-[address] Ron Cooley Work Phone: [facility] Work Phone: Start: 11-22-2023 End: 11-22-[address] Ron Cooley Work Phone: [facility] Work Phone: Start: 11-22-2023 End: 11-22-[address] Ron Cooley Work Phone: [facility] Work Phone: Start: 10-31-2023 End: 10-31-[address] Ron Cooley Work Phone: [facility] Work Phone: Start: 10-31-2023 End: 10-31-[address] Ron Cooley Work Phone: [facility] Start: 09-07-2023 End: 09-07-[address] Ron Cooley Work Phone: [facility] Work Phone: Start: 08-07-2023 End: 08-07-[address] Ron Cooley Work Phone: [facility] Work Phone: Start: 08-03-2023 End: 08-03-[address] Ron Cooley Work Phone: [facility] Work Phone: Start: 06-21-2023 Non-patient / Non-visit Dr. Rimma Cooley Work Phone: [facility] Start: 06-21-2023 End: 06-21-[address] Ron Cooley Work Phone: [facility] Work Phone: Start: 06-21-2023 End: 06-21-[address] [facility] Work Phone: Start: 05-18-2023 End: 05-18-[address] Ron Cooley Work Phone: [facility] Work Phone: Start: 05-18-2023 End: 05-18-[address] Ron Cooley Work Phone: [facility] Work Phone: Start: 05-09-2023 End: 05-09-[address] Ron Cooley Work Phone: [facility] Work Phone: Start: 05-09-2023 End: 05-09-[address] Ron Cooley Work Phone: [facility] Start: 05-02-2023 End: 05-02-[address] Ron Cooley Work Phone: [facility] Work Phone: Start: 05-02-2023 End: 05-02-[address] Ron Cooley Work Phone: [facility]-Physical Therapy Work Phone: Start: 05-02-[address] Ron Cooley Work Phone: [facility]-Physical Therapy Start: 05-01-2023 End: 05-01-[address] Ron Cooley Work Phone: [facility] Work Phone: Start: 05-01-2023 End: 05-01-[address] Ron Cooley Work Phone: [facility] Start: 04-12-2023 End: 04-12-[address] Ron Cooley Work Phone: [facility] Start: 04-11-2023 End: 04-11-[address] Ron Cooley Work Phone: [facility] Neurology Start: 02-21-2023 End: 02-21-2023 ambulatory [facility] Work Phone: Start: 02-21-2023 End: 02-21-2023 Patient encounter procedure [facility] Start: 02-14-2023 Telephone encounter Jaylyn peck MD Work Phone: Neurology Comment on above: Patient Update (Incr eased falls, aggression) Start: 02-11-2023 End: 02-11-2023 Emergency department patient visit [facility]-Emergency Department Start: 01-10-2023 Telephone encounter Jaylyn peck MD Work Phone: Neurology Comment on above: Patient Update Start: 01-04-2023 End: 01-04-2023 ambulatory [facility] Work Phone: Start: 01-04-2023 End: 01-04-2023 Patient encounter procedure [facility] Start: 12-12-2022 End: 12-12-2022 ambulatory Leni Ruiz APRN.RIGHT OF WAY SUPERVISOR Work Phone: Neurology Comment on above: TAMULOSIN Start: 12-12-2022 End: 12-12-2022 Office outpatient new 20 minutes Leni Ruiz APRN.RIGHT [employer] SUPERVISOR Work Phone: Neurology Comment on above: Parkinsonism, unspec ified Parkinsonism type (HCC) (Primary Dx); Orthostatic hypotension; Anxiety Start: 10-10-2022 Telephone encounter Jaylyn peck MD Work Phone: Neurology Comment on above: Patient Update (Incr eased shaking in AM ) Start: 10-04-2022 End: 10-04-2022 ambulatory KORI BEBB Facility:[facility] Start: 10-04-2022 End: 10-04-2022 ambulatory [facility] PT, DPT Work Phone: [facility] Outpatient Physical Therapy Comment on above: Parkinsonism, unspec ified Parkinsonism type (HCC) (Primary Dx); Gait instability; Leg weakness, bilateral; Imbalance Start: 09-16-2022 End: 09-16-2022 ambulatory [facility] Work Phone: Start: 09-16-2022 End: 09-16-2022 [facility] encounter [facility] Start: 09-15-2022 End: 09-15-2022 ambulatory Jaylyn Nieves MD Work Phone: Neurology Comment on above: CYMBALTA Start: 09-12-2022 Telephone encounter Jaylyn peck MD Work Phone: Neurological [facility] Comment on above: Other (PD Symptoms W orsening) Start: 09-02-2022 End: 09-02-2022 [facility] Aleida Ramirez MD Work Phone: Neurological [facility] Comment on above: MELISSA (generalized anx iety disorder) (Primary Dx); Depression, unspecified depression type; Parkinsonism, unspecified Parkinsonism type (HCC) Start: 08-25-2022 End: 08-25-2022 ambulatory [facility] Facility:[facility] Start: 08-25-2022 End: 08-25-2022 ambulatory Kori Ryder PT, DPT Work Phone: [facility] Outpatient Physical Therapy Comment on above: Parkinsonism, unspec ified Parkinsonism type (HCC) (Primary Dx); Gait instability; Leg weakness, bilateral; Imbalance Start: 08-11-2022 End: 08-11-2022 ambulatory [facility] Facility:[facility] Start: 08-08-2022 ambulatory Jaylyn jennings MD Work Phone: Neurology Comment on above: Dr. Suzie Nieves at 07/21 2:20 PM Start: 08-04-2022 End: 08-04-2022 ambulatory JAYLYN NIEVES Facility:[facility] Start: 08-04-2022 End: 08-04-2022 Patient encounter procedure Jaylyn Nieves MD Work Phone: Neurology Comment on above: Parkinsonism, unspec ified Parkinsonism type (HCC) (Primary Dx); Depression, unspecified depression type; Anxiety; Orthostatic lightheadedness; Dysphagia, unspecified type Start: 08-01-2022 End: 08-01-[address] Patricia Mcgowan Work Phone: [facility] Work Phone: Start: 08-01-2022 End: 08-01-[address] [facility] Start: 07-21-2022 Telephone encounter Jaylyn peck MD Work Phone: Neurology Comment on above: Appointment (Earlier appointment request d/t worsening symptoms ) Start: 06-21-2022 End: 06-21-[address] Patricia Mcgowan Work Phone: [facility] Start: 06-20-2022 End: 06-20-[address] Patricia Mcgowan Work Phone: [facility] Start: 05-18-2022 Refill Jaylyn jennings MD Work Phone: Neurological [facility] Comment on above: Refill Request Start: 05-16-2022 Non-patient / Non-visit Dr. Danya Mcgowan Work Phone: [facility] Start: 05-16-2022 End: 05-16-[address] Patricia Mcgowan Work Phone: [facility]-Cardiovascul ar Services Start: 04-25-2022 End: 04-25-[address] Patricia Mcgowan Work Phone: [facility] Start: 04-12-2022 End: 04-12-[address] Patricia Mcgowan Work Phone: [facility] Start: 04-07-2022 End: 04-07-2022 [facility] encounter [facility] Start: 03-29-2022 End: 03-29-2022 ambulatory Maine Medel PT, DPT Work Phone: [facility] Outpatient Physical Therapy Comment on above: Parkinson disease (H CC) (Primary Dx) Start: 03-29-2022 End: 03-29-2022 Patient encounter procedure Sakina Ro CCC-FREIGHT HUSTLER Work Phone: [facility] Outpatient Speech Therapy Comment on above: Parkinsonism, unspec ified Parkinsonism type (HCC) (Primary Dx); Dysphagia, oropharyngeal phase; Dysarthria Gait instability (Pr imary Dx); Parkinsonism, unspecified Parkinsonism type (HCC); Dysphasia; Oropharyngeal dysphagia; Decreased activities of daily living (ADL) Start: 03-23-2022 Telephone encounter Jaylyn peck MD Work Phone: Neurology Comment on above: Upcoming Appointment (Pre-rooming phone call) Start: 03-17-2022 End: 03-17-2022 ambulatory PATRICIA TRISTEN MCGOWAN Facility:[facility] Start: 03-17-2022 End: 03-17-2022 Patient encounter procedure Jaylyn Nieves MD Work Phone: Neurology Comment on above: Parkinsonism, unspec ified Parkinsonism type (HCC) (Primary Dx); Essential tremor; Dysphagia, unspecified type; Gait instability Start: 03-10-2022 End: 03-10-2022 Patient encounter procedure [facility] Start: 02-10-2022 Documentation procedure Jaspreet Ríos [facility], Neuroscience Start: 01-28-2022 End: 01-28-2022 Emergency department patient visit [facility]-Emergency Department Start: 12-31-2021 End: 12-31-2021 [facility] encounter [facility] Start: 12-21-2021 End: 12-21-2021 ambulatory BARB MORTON [facility] Start: 12-21-2021 End: 12-21-2021 Office outpatient visit 15 minutes Barb Morton MD Work Phone: [facility] Neuro[facility] Comment on above: Parkinson's disease (HCC) (Primary Dx) Start: 12-15-2021 End: 12-16-2021 [facility] Start: 12-15-2021 End: 12-16-2021 ambulatory [facility] Start: 12-05-2021 ambulatory [facility] Start: 11-18-2021 ambulatory [facility] Start: 11-15-2021 Patient encounter procedure [facility]Xiomara [facility] Start: 11-09-2021 Refill Jaspreet Qureshi MA [facility], Neuroscience Start: 11-05-2021 Documentation procedure Jim Bradford RN [facility] Neuro[facility] Start: 11-03-2021 Documentation procedure Jaspreet Ríos [facility] Physician [facility], Neuroscience Start: 11-01-2021 End: 11-02-2021 ambulatory [facility] Start: 10-28-2021 End: 11-01-2021 ambulatory Barb Morton MD Work Phone: [facility] Office Building Rehab Comment on above: Tremor; Impaired mobility and activities of daily living; Impairment of balance Start: 10-05-2021 End: 10-05-2021 ambulatory PATRICIA TRISTEN MCGOWAN [facility] Start: 10-05-2021 End: 10-05-2021 Office outpatient visit 25 minutes Barb Morton MD Work Phone: [facility] Physician [facility], Neuroscience Comment on above: Tremor (Primary Dx) Start: 09-27-2021 Transcribe Orders Patricia Mcgowan MD Work Phone: [facility] Physician [facility], Neuroscience Comment on above: Tremor, essential (P rimary Dx) Start: 05-19-2021 End: 05-19-2021 Subsequent hospital visit by physician Nii Altman MD Work Phone: [facility] General Surgery Comment on above: Arrived Start: 05-11-2021 End: 05-11-2021 Patient encounter status Raeann Holland CIGAR BR[employer]ER - RIGHT OF WAY SUPERVISOR Work Phone: [facility] Start: 05-11-2021 End: 05-11-2021 Subsequent hospital visit by physician Raeann Holland CIGAR BR[employer]ER - RIGHT OF WAY SUPERVISOR Work Phone: [facility] Comment on above: [...] of breath Start: 04-12-2021 Patient encounter status [facility] Work Phone: Start: 08-14-2006 End: 08-14-2006 Patient encounter procedure Wyatt Noble Work Phone: [facility] Start: 08-14-2006 Results Only Wyatt Valleo x Work Phone: [facility] Start: 02-03-2006 End: 02-03-2006 Patient encounter procedure Wyatt Noble Work Phone: [facility] Start: 02-03-2006 Results Only Wyatt Valleo x Work Phone: [facility] Procedures Date Procedure Procedure Detail Performing Clinician Start: 05-26-2025 Folic acid measurement, RBC Dr. Ron Cooley MD Work Phone: Comment on above: Performed at: [address] [id number] Director: Vj Garcia PhD, Phone: [phone] Start: 05-09-[address] Ron valle MD Work Phone: Start: 04-13-2025 Ct maxillofacial w/o contrast material [...] Cooley MD Work Phone: Comment on above: Previous reported re sult: 87.7 mg/g CREEdited by: STACI on 05/08/25:0851 AMENDED REPORT 05/08/25 0851 MALB:CREAT previously reported as: 87.7 mg/g CRE Start: 02-14-2025 CT cervical spine wi thout [...] Start: 05-11-2021 ECHOCARDIOGRAM PHARMACOLOGICAL STRESS TEST Raeann Case Holland [employer] Work Phone: Start: 05-05-2021 Antibody screen Nii Charlton MD Work Phone: Start: 05-05-2021 Blood count complete automated Raeann Holland [employer] Work Phone: Start: 05-05-2021 Blood typing serologic abo Raeann Case Holland [employer] Work Phone: Start: 05-05-2021 Ecg routine ecg w/le ast 12 lds w/i&r Raeann Case Holland [employer] - [employer] Work Phone: Start: 08-14-2006 CONVERTED SURGICAL PATHOLOGY Wyatt Noble Work Phone: Start: 02-03-2006 CONVERTED SURGICAL PATHOLOGY Wyatt Teixeira Donna Work Phone: Plan of Treatment Date Care Activity Detail Author Start: 12-05-2034 DTaP/Tdap/Td Vaccines (4 - Td or Tdap) DTaP/Tdap/Td Vaccines (4 - Td or Tdap) [facility] Start: 01-25-2031 Tetanus vaccination Tetanus: Every 10yrs [facility] Start: 05-11-2025 [facility] Start: 04-09-2025 Simple repair scalp/neck/ax/genit/trun k 2.5cm/< RPR S/N/AX/GEN/TRNK 2.5CM/< [facility] Start: 04-09-2025 [facility] Start: 03-24-2025 CT Chest WO contrast [facility] Start: 03-24-2025 CT of chest without contrast Chest without Contrast [facility] Start: 02-14-2025 [facility] Start: 01-04-2025 Patient referral [facility] Work Phone: Start: 12-11-2024 Patient referral [facility] Work Phone: Start: 12-05-2024 [facility] Start: 12-05-2024 Simple repair f/e/e/n/l/m 2.6cm-5.0 cm RPR F/E/E/N/L/M 2.6-5.0 CM [facility] Start: 11-11-2024 COVID-19 Vaccine () COVID-19 Vaccine () [facility] [employer] Start: 10-12-2024 Incentive spirometry [facility] Start: 10-12-2024 End: 10-12-2024 [facility] Start: 04-02-2024 Patient referral [facility] Work Phone: Start: 03-25-2024 Acetylcholine receptor blocking Ab [Presence] in Serum [facility] Start: 03-25-2024 Acetylcholine receptor modulating antibody measurement [facility] Start: 11-23-2023 Serum immunofixation [facility] Start: 11-23-2023 Urine immunofixation [facility] Start: 05-09-2023 Peter and lambda light chains [facility] Start: 05-09-2023 Thiamine measurement [facility] Start: 03-11-2023 Adult depression screening assessment DEPRESSION SCREENING [facility] Start: 11-20-2022 ADVANCE DIRECTIVE DISCUSSION ADVANCE DIRECTIVE DISCUSSION [facility] Start: 11-20-2022 DEPRESSION ASSESSMENT DEPRESSION ASSESSMENT [facility] Start: 07-21-2022 Influenza vaccination INFLUENZA (#1) [facility] Start: 05-05-2022 Creatinine measurement Creatinine monitoring [employer] Phone: Start: 05-05-2022 Diabetes: Estimated Glomerular Filtration Rate for [facility] Diabetes: Estimated Glomerular Filtration Rate for [facility] Start: 05-05-2022 Potassium monitoring Potassium monitoring [facility] Work Phone: Start: 12-21-2021 End: 12-21-2021 Telemedicine consultation with patient 12/21/2021 Telemedicine Neurology Barb Morton MD [address] [place] [address] [facility] Start: 12-15-2021 End: 12-15-2021 Patient encounter procedure 12/15/2021 Appointment Radiology Barb Morton MD [address] [place] [address] [facility] Start: 11-20-2021 ADVANCE DIRECTIVE DISCUSSION ADVANCE DIRECTIVE DISCUSSION [facility] Start: 11-20-2021 DEPRESSION ASSESSMENT DEPRESSION ASSESSMENT [facility] Start: 11-01-2021 End: 11-01-2021 Patient encounter procedure 11/01/2021 Appointment Radiology Barb Morton MD [address] [place] [address] [facility] [address] Start: 06-03-2021 End: 06-03-2021 Patient encounter procedure 06/03/2021 Office Visit Neurosurgery Nii Altman MD [address] [place] [address] [phone] [facility] Start: 05-19-2021 End: 05-19-2021 Patient encounter procedure 05/19/2021 Appointment General Surgery Nii Altman MD [address] [place] [address] [phone] [facility] General Surgery Start: 05-05-2021 End: 07-04-2021 ECHO Pharmacological Stress Test ECHO Pharmacological Stress Test Echocardiography Routine Pre-op testing Abnormal EKG Shortness of breath Expected: 05/05/2021 (Approximate), Expires: 07/04/2021 [employer] Work Phone: Comment on above: Expected: 05/05/2021 (Approximate), Expi res: 07/04/2021 Start: 07-21-2020 Influenza vaccination INFLUENZA (#1) [facility] Start: 05-12-2019 Annual Wellness Visit (AWV) Annual Wellness Visit (AWV) [facility] Work Phone: Start: 2009 ADVANCE DIRECTIVE DISCUSSION ADVANCE DIRECTIVE DISCUSSION [facility] Start: 2009 Fall risk assessment Falls Risk Assessment [facility] Start: 2009 Pneumococcal 65+ years Vaccine (1 of 1 - PPSV23) Pneumococcal 65+ years Vaccine (1 of 1 - PPSV23) [facility] Work Phone: Start: 2009 PNEUMOCOCCAL: 65+ (1 - PCV) PNEUMOCOCCAL: 65+ (1 - PCV) [facility] Start: 2009 PNEUMOVAX AGE 65 AND OVER WITH 5YR LOOKBACK (#1) PNEUMOVAX AGE 65 AND OVER WITH 5YR LOOKBACK (#1) [facility] Start: 1994 Shingles Vaccine (1 of 2) Shingles Vaccine (1 of 2) [employer] Work Phone: Start: 1994 SHINGRIX VACCINE (1 of 2) SHINGRIX VACCINE (1 of 2) [facility] Start: 1994 Tuberculosis screening COLORECTAL CANCER SCREENING,SEE MODIFIER [facility] Start: 1989 DIABETES SCREEN DIABETES SCREEN [facility] Start: 1979 LIPID SCREEN LIPID SCREEN [facility] Start: 1963 DTaP/Tdap/Td vaccine (1 - Tdap) DTaP/Tdap/Td vaccine (1 - Tdap) [facility] Work Phone: Start: 1963 Urine microalbumin profile DTAP,TDAP,TD (1 - Tdap) [facility] Start: 1962 Diabetes: Urine Albumin-Creatinine Ratio for [facility] Diabetes: Urine Albumin-Creatinine Ratio for [facility] Start: 1962 HEPATITIS C SCREENING HEPATITIS C SCREENING [facility] Start: 1962 Hepatitis C screening Hepatitis C Screening [facility] Start: 1956 COVID-19 Vaccine (1) COVID-19 Vaccine (1) [facility] Work Phone: Start: 1956 Depression screening using PHQ-9 (Patient Health Questionnaire 9) score [facility] Start: 1954 Diabetic foot examination Foot Exam [facility] Start: 1954 Lipid panel Lipid screen [facility] Work Phone: Start: 1954 Microalbumin measurement, urine, quantitative Urine Microalbumin [facility] Start: 1954 Ophthalmic examination and evaluation Ophthalmology Exam [facility] Start: 1947 History and physical examination, annual for health maintenance Wellness Visit [facility] Start: 1944 Hemoglobin A1c measurement A1C [facility] Start: 1944 Hepatitis C screening Hepatitis C screen [facility] Work Phone: Start: 1944 Medicare Annual Wellness (AWV) Medicare Annual Wellness (AWV) [facility] Albumin [Moles/volum e] in Serum or Plasma [facility] Albumin/Globulin ratio [facility] Blood glucose - POCT [employer] Work Phone: Comment on above: As Needed until discontinued starting Cobalamin (Vitamin B 12) [Mass/volume] in Serum or Plasma [facility] End: 05-19-2021 Creatinine [Mass/volume] in Serum or Plasma Creatinine, serum Lab STAT One Time for 1 Occurrences starting 05/19/2021 until 05/19/2021 [employer] Work Phone: Comment on above: One Time for 1 Occurrences starting 04/22 until 05/19/2021 End: 10-05-2022 CT of head without contrast CT Head Or Brain Without Contrast Imaging Routine Tremor 1 Occurrences starting 10/05/2021 until 10/05/2022 [facility] Comment on above: 1 Occurrences starting 10/05/2021 until 10/05/2022 EKG 12 Lead [facility] Work Phone: Electrophoresis: [id number] [facility] Electrophoresis: aamir ma globulin [facility] Folic acid measureme nt, RBC [facility] Globulin measurement [facility] IgA [Mass/volume] in Serum or Plasma [facility] IgG [Mass/volume] in Serum or Plasma [facility] IgM [Mass/volume] in Serum or Plasma [facility] End: 05-19-2021 Intermittent pulse oximetry Pulse Oximetry Spot Check Respiratory Care Routine One Time for 1 Occurrences starting 05/19/2021 until 05/19/2021 [employer] Work Phone: Comment on above: One Time for 1 Occurrences starting 04/22 until 05/19/2021 Peter/lambda light c winsome ratio [facility] Lambda light chains. free [Mass/volume] in Serum or Plasma [facility] MR Brain WO and W contrast IV [facility] MR Brain WO contrast [facility] MR Cervical spine [facility] MR Lumbar spine [facility] End: 05-11-2021 Nasal Cannula Oxygen Nasal Cannula Oxygen Respiratory Care Routine As Needed until discontinued starting 05/11/2021 [employer] Work Phone: Comment on above: As Needed until discontinued starting End: 10-05-2022 NM Brain Datscan SPECT CT Single Area Single Day NM Brain Datscan SPECT CT Single Area Single Day Imaging Routine Tremor 1 Occurrences starting 10/05/2021 until 10/05/2022 [facility] Work Phone: Comment on above: 1 Occurrences starting 10/05/2021 until 10/05/2022 Oxygen therapy [[facility] Data Set] Initiate Oxygen Therapy Protocol Respiratory Care Routine Daily until discontinued starting 05/19/2021 [employer] Work Phone: Comment on above: Daily until discontinued starting 2020 Patient Education [facility] Work Phone: Patient referral [facility] Work Phone: End: 05-19-2021 Potassium w/ Reflex to Magnesium Potassium w/ Reflex to Magnesium Lab Routine One Time for 1 Occurrences starting 05/19/2021 until 05/19/2021 [employer] Work Phone: Comment on above: One Time for 1 Occurrences starting 04/22 until 05/19/2021 End: 05-19-2021 , urine POCT , urine POCT Point of Care Testing Routine One Time for 1 Occurrences starting 05/19/2021 until 05/19/2021 [facility] Work Phone: Comment on above: One Time for 1 Occurrences starting 04/22 until 05/19/2021 Protein electrophore sis panel - Serum or Plasma [facility] End: 05-19-2021 Protime-INR Protime-INR Lab STAT One Time for 1 Occurrences starting 05/19/2021 until 05/19/2021 [facility] Work Phone: Comment on above: One Time for 1 Occurrences starting 04/22 until 05/19/2021 PT PLAN OF CARE CERTIFICATION PT PLAN OF CARE CERTIFICATION Procedures Routine Parkinson disease (HCC) Ordered: 03/29/2022 [facility] Work Phone: Comment on above: Ordered: 03/29/2022 Serum immunofixation [facility] SPEECH PLAN OF CARE CERTIFICATION SPEECH PLAN OF CARE CERTIFICATION Procedures Routine Parkinsonism, unspecified Parkinsonism type ([facility]) Dysphagia, oropharyngeal phase Dysarthria Ordered: 03/29/2022 [facility] Work Phone: Comment on above: Ordered: 03/29/2022 Spirometry panel Incentive mariann metry Respiratory Care Routine Q1H PRN until discontinued starting 05/19/2021 [facility] Work Phone: Comment on above: Q1H PRN until discontinued starting 04/22 Urine immunofixation [facility] Urine kappa light ch ain measurement [facility] Immunizations Immunization Date Immunization Notes Care Provider Fa heidi 12-05-2024 tetanus toxoid, redu aman diphtheria toxoid, and acellular pertussis vaccine, adsorbed Dr. Ron Cooley MD Work Phone: [facility] Payers Date Payer Category Payer Private Health Insurance [facility] Mem crow [id number] 2025 Unknown [id number] 2024 Self-pay [id number] 2021 Unknown [place] FOR L MARIAH [id number] 2021-Present [phone] [address] [place] [address] [id number] .[id number] 2021 Unknown [id number] 2021 Unknown [id number]. 1.13.385.2 .7.3.976895.315 2017 [employer] ( and others) [id number] 1.2.840.755470.1.13.239.2 .7.3.649765.315 2009 Medicare [id number] 1.2.840.696180.1.13.385.2 .7.3.873902.315 2009 Medicare 1.2.840.925997. 1.13.385.2 .7.3.477849.315 2009 Medicare [id number] 1.2.840.043535.1.13.239.2 .7.3.512140.315 2002 Self-pay [id number] 1.2.840.271219.1.13.159.2 .7.3.507265.315 1944 Unknown [id number] 2.16.840.1.198565.3.579.2 .900 1944 Unknown [id number] 2.16.840.1.187746.3.579.2 .900 1944 Unknown [id number] 2.16.840.1.754672.3.579.2 .900 1944 Unknown [id number] 2.16.840.1.710610.3.579.2 .900 1944 Unknown [id number] 2.16.840.1.847039.3.579.2 .900 1944 Unknown [id number] 2.16.840.1.265832.3.579.2 .900 1944 Unknown [id number] 2.840.1.588815.3.579.2 .900 1944 Unknown [id number] 2.16.840.1.138877.3.579.2 .900 1944 Unknown [id number] 2.16.840.1.454661.3.579.2 .900 1944 Unknown [id number] 2.16.840.1.662383.3.579.2 .627 1944 Unknown [id number] 2.16.840.1.236519.3.579.2 .627 Unknown [id number] 2.16.840.1.048898.3.579.2 .462 Unknown [id number] 2.16.840.1.493132.3.579.2 .462 Unknown [id number] 2.16.840.1.721650.3.579.2 .462 Unknown [id number] 2.16.840.1.853809.3.579.2 .462 Unknown [id number] 2.16.840.1.884349.3.579.2 .462 Unknown [id number] 2.16840.1.403419.3.579.2 .462 Unknown [id number] 2.16840.1.332437.3.579.2 .462 Unknown [id number] 2.16.840.1.575697.3.579.2 .462 Unknown [id number] 2.840.1.896713.3.579.2 .462 Unknown [id number] 2.840.1.227447.3.579.2 .462 Unknown [id number] 2.840.1.020837.3.579.2 .462 Unknown [id number] 2.840.1.689324.3.579.2 .462 Unknown [id number] 2.840.1.377732.3.579.2 .462 Unknown [id number] 2.840.1.842222.3.579.2 .462 Unknown [id number] 2.840.1.163992.3.579.2 .462 Unknown [id number] 2.840.1.429639.3.579.2 .462 Unknown [id number] 2.840.1.051491.3.579.2 .462 Unknown [id number] 2.840.1.855071.3.579.2 .462 Unknown [id number] 2.840.1.054104.3.579.2 .462 Unknown [id number] 2.840.1.284075.3.579.2 .462 Unknown [id number] 2.840.1.759915.3.579.2 .462 Unknown [id number] 2.840.1.635297.3.579.2 .462 Unknown [id number] 2.840.1.178572.3.579.2 .462 Unknown [id number] 2.16.840.1.995661.3.579.2 .462 Unknown [id number] 2.16.840.1.832958.3.579.2 .462 Unknown [id number] 2.16.840.1.707815.3.579.2 .462 Unknown [id number] 2.16.840.1.689878.3.579.2 .462 Unknown [id number] 2.16.840.1.867523.3.579.2 .462 Social History Date Type Detail Facility Tobacco smoking stat [facility] Unknown if ever smoked [facility] Start: 1945 Sex Assigned At Not on file [facility] Start: 05-05-2021 End: 05-11-2025 Tobacco smoking status CTIS Former smoker [facility] Work Phone: Start: 11-20-1947 End: 11-20-1998 History of tobacco use Current smoker [facility] Start: [birth year]-20-1948 End: 11-20-1998 History of tobacco use Cigarette Smoker [facility] Start: 05-05-2021 End: 11-08-2022 Cigarettes smoked current (pack per day) - Reported [facility] Work Phone: Start: 05-05-2021 End: 08-04-2022 Tobacco use and exposure Never used [facility] Start: 05-05-2021 End: 11-08-2022 Alcohol intake Current non-drinker of alcohol (finding) [facility] Work Phone: Start: 11-15-2021 End: 09-02-2022 Exposure to SARS-CoV-2 (event) Not sure [facility] Start: 01-28-2022 End: 08-07-2023 Tobacco smoking status CTIS Tobacco smoking consumption unknown [facility] Start: 10-05-2021 End: 12-12-2022 Alcohol intake Lifetime non-drinker (finding) [facility] Start: 1945 Sex Assigned At Male [facility] Start: 08-25-2021 History SDOH Alcohol Frequency 1 [facility] Start: 07-25-2022 End: 08-04-2022 Exposure to SARS-CoV-2 (event) Yes [facility] Start: 06-20-2022 End: 02-03-2025 Sex Male (finding) [facility] Start: 11-08-2022 End: 04-13-2025 Alcohol Use Disorder Identification Test - Consumption [AUDIT-C] [facility] How often to you hav e a drink containing alcohol? Never [facility] How many standard dr inks containing alcohol do you have on a typical day? Patient does not drink [facility] Medical Equipment Procedure Code Equipment Code Equipment Origin al Text Equipment Identifier Dates [id number] Start: 01-15-2018 SURE COMFORT PEN NEEDLES 31G X 8 MM MISC [id number] Start: 12-28-2017 blood sugar diagnostic (FreeStyle Lite Strips) strips [id number] Start: 01-15-2018 pen needle, diab etic 31 gauge x 5/16 Ndle [id number] Start: 12-28-2017 Functional Status Date Assessment Result Facility 04-13-2025 Total score [AUDIT-C] 0 04/13/20 8:48 PM EDT Cielo Valverde RN [facility] Mental Status Date Assessment Result Facility 05-11-2025 Cognitive function Level Of Cons ciousness Awake;Alert;Appropriate;Follow s Commands [facility] Work Phone: 10-12-2024 Cognitive function Awake;Alert;A ppropriate;Follow s Commands [facility] Work Phone: 01-28-2022 Cognitive function Level Of Cons ciousness Awake;Alert;Appropriate;Follow s Commands [facility] Work Phone: Clinical Notes 05-05-2021 to 05-11-2025 Note Date & Type Note Facility 05-11-2025 Discharge summary [facility] 05-11-2025 Discharge summary Note Date/Time May 11, 2025 6:49pm [facility] Medical Records Department [address] [place] [address] Emergency Department Summary 05/11/25 MR#: [id number] Acct: [id number] Name: KEVIN GRIFFITH Rep #:[id number] : 1945 79 From: Dano Minor MD PCP: Dr. Ron Cooley MD Status:RE G ER Location: ED HPI History of Present Illness Chief Complaint: Hypoglycemia Detail of Chief Complaint: Hypoglycemia with altered mental status Informant: patient, EMS and SNF Onset/Context/Timing Onset: Today (Last episode 3 weeks ago) Context: Sudden Onset Timing: Intermittent Quality: Altered mental status Location: Nursing facility Current Severity: Gone Maximum Severity: Moderate Worsened by: Change in activity Relieved by: Eating Associated Symptoms Associated Symptoms: None Narrative Narrative: Patient is an 79-year-old male with type 2 diabetes on insulin. Instructions did not accompany him. He is on insulin aspartate with complex instruction and insulin glargine. He does not know the dosage. He presently is alert oriented. His blood sugar is 97. Prior similar symptoms: Yes (3 weeks ago) Recent Illness/Hospitalization: No PFSH PFSH Medical History Parkinson's disease Right bundle [...] metoclopramide (From Reglan) Allergy Severe HYPER Verified 05/11/25 17:48 Family History Father Leukemia Surgical History History of total left knee replacement (TKR) History of left tennis elbow Hx of spinal fusion History of skin cancer Social History household members: spouse housing: house Smoking Status: Former smoker alcohol intake: never substance use type: does not use ROS ROS ED Constitutional Constitutional ED: Denies chills, fever(s), subjective or sweats Cardiovascular Cardiovascular: Denies chest pain or palpitations Respiratory/Chest Respiratory/Chest: Denies cough, dyspnea or dyspnea on exertion Gastrointestinal Gastrointestinal: Denies nausea or vomiting Genitourinary Genitourinary ED: Denies dysuria or urinary frequency Musculoskeletal Musculoskeletal: Denies arthralgias or myalgias Neurologic Neurologic: Denies headache(s), paresthesias or weakness Hematologic/Lymphatic Hematologic/Lymphatic: Reports systems reviewed and no addt'l complaints, exceptas documented EXAM Physical Exam Const Vital Signs: 05/11/25 17:49 05/11/25 17:51 Temperature 97.7 F L Temperature Source Oral Pulse Rate 77 Respiratory Rate 16 Respiratory Effort Normal Respiratory Pattern Normal Blood Pressure 112/99 H Blood Pressure Mean 103 Pulse Ox 97 Oxygen Delivery Method Room Air Positive well nourished and well developed Constitutional Narrative: BMI is 36.7. General Appearance ED: well developed and NAD HEENT Reports moist mucous membranes HEENT Narrative: Head is atraumatic no cephalic. Ears normal. Hearing aids. Eyes PERRL and EOMs intact bilaterally Eyes Narrative: Patient wears glasses. Neck supple and no JVD Resp normal respiratory effort and clear to auscultation bilaterally Cardio regular rate, regular rhythm, S1 normal heart sound, S2 normal heart sound and no murmurs Extremity General Extremety ED: Yes edema General Extremity: edema Neuro oriented x3 and CN's II-XII intact bilaterally Sensorium / Orientation: alert Psych mental status grossly normal Skin no rashes or lesions noted, no wounds and skin turgor normal MDM MDM MDM Narrative Medical decision making narrative: Charge nurse will attempt to get his insulin doses. These will need to be adjusted to prevent this from happening again. Patient be observed and returnedback to nursing facility. History & Record Review Additional record(s) reviewed:: Prior ED visit (Seen April 09 for head injury. His workup was unremarkable. He was seen January of this year by Dr. Martin for head injury as well.) Lab Data Labs: Laboratory Results - last 24 hr 05/11/25 17:56 POC Glucose 97 Treatment and Re-Evaluation :: When arrived I was informed that patient did not eat lunch and probably thecause of his hypoglycemia. She does not want his medication doses adjusted. Therefore was discharged to home Discharge Plan Triage Chief Complaint: Hypoglycemia ED Provider: Dano Minor Dx/Rx/DC Orders Clinical Impression: Acute alteration in mental status, Essential (primary) hypertension, Dementia, HLD (hyperlipidemia), Controlled type 2 diabetes mellitus with hypoglycemia, with long-term current use of insulin, Adult BMI 36.0-36.9 kg/sq m Instructions: ED Hypoglycemia Oral Diabetic Med Prescriptions: No Action pravastatin 80 mg tablet [...] Ron Cooley MD [Primary Care Provider] - As Needed Print Language: Armenian Disposition Disposition: Home, Self Care What to do if you have Problems For any increased pain, shortness of breath, bleeding, nausea or vomiting, chestpain, or any unexpected problems, contact your Primary Care Provider. Call [facility] ([phone]) or report to the closest Emergency Room. Call 911 if necessary. 05/11/251848 <Electronically signed by Dano Minor MD> Cosigner Signature (if applicable): CC: Dr. Ron Cooley MD ~ Signed [facility] Work Phone: 1(730) 393-178606-20-2025 Procedure note [facility] Speech Pathology [address] [place] [address] Modified Barium Swallow Study MR#: [id number] Acct: [id number] Name: KEVIN GRIFFITH Rep #:[id number] : 1945 79 From: Heather Braun, [facility] Modified Barium Swallow Patient Information Study Date: 05/09/25 Study Time: 13:05 Direct Billable Minutes: 120 Total Minutes procedure & reportin Diagnosis: Dysphagia R13.10 Referring Physician: Vick Santo Reason for Referral: The patient presents for repeat MBSS recommended by his OP [facility]. Patient and wifereport coughing w/ food and drink at every meal. No choking or Heimlich requiredin the past, but he has frequent coughing episodes and his is fearful of choking w/ extent of coughing. She reports he has most difficulty swallowing drymeats. He reports most difficulty w/ liquids. He has had swallowing difficulty for ~3.5 years, but it appears to be getting much worse per report. 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 BSE 02/26/2025 revealed dysphagia and recommended the following diet textures and safe swallowing strategies ? Regular (Level 7), Liquids: Thin (Level 0), Safey Precautions/Swallowing Recommendations (Check all that Apply): Upright Position at Least 30 Minutes After Meals, Small Sips & Bites whenEating, No Straw, Multiple Swallows, Alternate Liquids & Solids and Other (Specify Below), Other: Effortful swallows with liquids.? BSE also recommended a repeat MBSS for furtherevaluation of aspiration risk and to determine appropriate dysphagia interventions. 09/20/24 MBSS revealed mild oropharyngeal dysphagia and recommended the followingdiet textures and safe swallowing strategies: ?Regular Textures and Thin Liquids(w/ effortful swallow)?Compensatory Strategies: Small Bites, Small Sips, No Straws, Slow Rate, Multiple Swallows, Alternate bites/solids and sips/liquids, Sitting upright, Remain sitting upright for 30 minutes after PO intake and Assist with verbal cues to use recommended strategies.? Current Diet Ordered: Regular textures / Thin liquids Dentition: Natural Teeth and Missing Teeth Mental Status: Impaired (Dementia) Respiratory Status: Oxygenating on Room Air Penetration-Aspiration Scale Penetration-Aspiration Scale: OBJECTIVE ASSESSMENT OF SWALLOW FUNCTION (QUANTITATIVE ? PER TRIAL): PENETRATION / ASPIRATION SCALE (OBANDO): [...] cup: Result: 2= enter airway/above vocal folds/ejected [place] Thick Liquid via large single sip: cup: [...] airway Thin Liquid via small single sip: cup Effortful swallow: Result: 1= does not enter airway Oral Phase Labial Seal: No Labial Escape Tongue Control During Bolus Hold: Posterior escape of greater than half of bolus Bolus Preparation/Mastication: Slow prolonged chewing/mashing with complete recollection Bolus Transport/Lingual Motion: Repetitive/disorganized tongue motion Oral Residue: Majority of bolus remaining Pharyngeal Phase Initiation of Pharyngeal Swallow: Bolus head in pyriforms Soft Palate Elevation: Trace column of contrast/air between soft palate and pharyngeal wall Laryngeal Elevation: Partial superior movement thyroid cart/partial apprx aryt- epig petiole Anterior Hyoid Excursion: Partial anterior movement Epiglottic Movement: Complete inversion Laryngeal Vestibule Closure at Height of Swallow: Incomplete; narrow column of air/contrast in laryngeal vestibule Pharyngeal Stripping Wave: Present - diminished Pharyngoesophageal Segment Opening: Parital distension and partial duration; parital obstruction offlow (trace retention in the UES) Tongue Base Retraction: Narrow column of contrast between tongue base & post. pharyngeal wall Pharyngeal Residue: Collection of residue within or on pharyngeal structures Esophageal Phase Esophageal Clearance: Esophageal retention Diagnosis/Impression Diagnosis: Moderate oropharyngeal dysphagia R13.12; Esophageal dysphagia R13.14 Impression: The oral phase is primarily marked by... -Decreased bolus control with >1/2 of the bolus spilling to the pharynx prior toswallow onset. -Disorganized, slowed tongue motion for A-P transport. -Slowed, but complete mastication. -Moderate oral residues, which at time spilled to the pharynx after the swallow. The pharyngeal phase is primarily marked by... -Delayed swallow onset. -Decreased pharyngeal motility w/ -Decreased airway closure due to decreased laryngeal elevation and anterior hyoid excursion. -Aspiration of thin liquids via cup and straw. Aspiration of mildly/nectar thickliquids via cup. Delayed, reflexive cough w/ all aspiration events. Aspiration occurred during the second swallow of these liquid trials due to pharyngeal residues in the pyriform sinuses spilling to the trachea during the second swallow. -Some sip sizes taken during MBSS were large/sequential despite FREIGHT HUSTLER cues for small sip. Decreased bolus size is recommended to decrease aspiration risk. FREIGHT HUSTLER provided information re: bolus control cup. The esophageal phase is primarily marked by... -Retention of pudding in the middle esophagus, which appeared to fully clear after liquid wash. -Retention of cookie in the middle and lower esophagus, which did not appear to somewhat clear (still moderate retention) w/ liquid wash Recommendations Diet: Easy to Chew Textures (Moisten Dry Textures) and Thin Liquids Comment: STOP meal if increased s/s of reflux, sensation of retention, or regurgitation despite use of strategies listed below and resume meal at a later time. Compensatory Strategies: Small Bites, Small Sips (Hard swallows, 10cc bolus control cup), Slow Rate, Alternate bites/solids and sips/liquids, Sitting upright and Remain sitting upright for 30 minutesafter PO intake Supervision: Assist as needed ( informed the FREIGHT HUSTLER that supervision at each meal is not possible,FREIGHT HUSTLER recommends supervision as much as able to cue use of safe swallow strategies) Recommend Repeat Modified Barium Swallow: TBD Need for Skilled Speech Therapy Services: Yes Comment: -Train the patient in use of strategies to decrease risk for aspiration and reflux aspiration. Pt may benefit from visual reminder cards due to inability for direct supervision at all meals. -Ongoing assessment of diet tolerance of recommended textures/strategies. Chin tuck was also an effective strategy if s/s of aspiration persist w/ use of effortful swallow. -Train the patient in oral motor and oropharyngeal exercise program (lingual coordination and resistance exercises, Nile, Effortful, CTAR) Recommended Referrals: GI Consult (Pt is NOT recommended for esophagram due to aspiration risk.) Education Completed: 1. Described result of evaluation., 4. Family/caregivers understand evaluation& agree w/ goals & tx plan. and 7. Pt requires further education on strategies & risks. Comment: FREIGHT HUSTLER provided extensive education w/ pt and in results and recommendations of MBSS via review of some images, verbal discussion, and handouts (Easy to Chewdiet texture information/testing, MBSS Recommendations, and Provale Bolus Control Cup information). Education well received. Pt would benefit from continued training in safe swallowing precautions. Status Active ST Patient: Active Contact Information [facility] Speech Therapy:: Heather Titus M.A. CCC-FREIGHT HUSTLER? Speech-Language Pathologist?? [facility] [address] [place] [address]? [email or web address]?? [phone] 05/09/25 [address] CCC-FREIGHT HUSTLER> Date/Time Heather Titus M.A. CCC-FREIGHT HUSTLER Co-Signature Required for all Medicare patients Date/Time Co-Signature CC: ~ [facility]05-25-2025 Hospital Discharge instructions* Discharge Instructions* J Erna Powell MD - 04/13/2025 9:41 PM EDT You had 10 stitches placed. Please present to an urgent care, your primary care physician, or back to the emergency department in 5-7 days to have your stitches removed. * Attachments The following attachments cannot be sent through Care Everywhere. * Nose Fracture (Armenian) documented in this [facility]05-25-2025 Emergency department Note* Chetan Powell MD - 04/13/2025 8:38 PM EDTAssociated Order(s): Laceration Repair Images from the original [...] the emergency department with chief complaint of afall. Part of the history is obtained by the patient's , who states that because of the patient's history of Parkinson's disease, he has frequent falls, and went to stand up after being seated [employer] today, and fell directly onto his [...] to the left eyebrow. 1 cm nongaping lacerationto the bridge of the nose. No reproducible [...] CT maxillofacial [facility], for [place] CT demonstrating bilateral nasal bone fractures. The [...] initial encounter Medications lidocaine-EPINEPHrine (Xylocaine W/EPI) 1 %-1:967011 injection 10 mL (has no administration in timerange) sulfamethoxazole-trimethoprim (Bactrim DS) 800-160 MG per tablet 1 tablet (has no administration intime range) cephalexin (Keflex) capsule 500 mg (has no administration in time range) REVAL: CRITICAL CARE TIME None CONSULTS: None PROCEDURES: Unless otherwise noted below, none Laceration Repair Performed by: Chetan Powell MD Authorized by: Chetan Powell MD Consent: Consent obtained: Verbal Consent given by: Patient [place] protocol: Imaging studies available: yes Patient identity [...] Discharge 04/13/2025 09:39:45 PM PATIENT REFERRED TO: [facility] [address] [address] Schedule an appointment as soon [...] are any questions or concerns please feel freeto contact the dictating provider for clarification.) Roddy Powell MD (electronically signed) Emergency Medicine Provider [1] Past Medical History: Diagnosis Date Anxiety Arthritis Asthma Sanchez's fracture of left radius, subsequent encounter for closed fracture with malunion scheduled for the surgery on 04/17/2018 at [facility] COPD (chronic obstructive pulmonary disease) ([facility]) Diabetes mellitus type 2, controlled (CMS/HCC) ([facility]) [place] (hard of hearing) HAS HEARING AID BOTH EARS , BUT DID NOT WEAR THEM Hyperlipidemia Hypertension MELISSA on CPAP [2] Past Surgical History: Procedure Laterality Date COLONOSCOPY COLONOSCOPY ELBOW SURGERY Left 1990 Lateral epicondylitis surgery EYE SURGERY bilat cataracts and implants JOINT REPLACEMENT Bilateral TKA L 2005, TKA R 2011 SKIN BIOPSY SPINAL FUSION 2000 L2,3,4; AT [facility] WRIST ARTHROSCOPY (HISTORICAL) Left 04/17/2018 [...] Drug use: No Chetan Powell MD 04/13/252221 * Cielo Valverde RN - 04/13/2025 8:38 PM EDT Pt presents to ED via EMS from restaurant for c/o left frontal head lac after losing footing and falling onto face on the ground. Pt has hx of parkinson's. Abrasion noted to forehead, small lac notedto bridge of nose as well as a large lac to forehead above left eye [id number] Emergency department Triage note* Cielo Valverde RN - 04/13/2025 8:38 PM EDT Pt presents to ED via EMS from restaurant for c/o left frontal head lac after losing footing and falling onto face on the ground. Pt has hx of parkinson's. Abrasion noted to forehead, small lac notedto bridge of nose as well as a large lac to forehead above left eye [facility] Emergency department Note* Chetan Powell MD - 04/13/2025 8:38 PM EDTAssociated Order(s): Laceration Repair Images from the original [...] the emergency department with chief complaint of afall. Part of the history is obtained by the patient's , who states that because of the patient's history of Parkinson's disease, he has frequent falls, and went to stand up after being seated [employer] today, and fell directly onto his [...] to the left eyebrow. 1 cm nongaping lacerationto the bridge of the nose. No reproducible [...] CT maxillofacial I reviewed external records from: [facility] demonstrating 1 prescription, for [place] CT demonstrating bilateral nasal bone fractures. The [...] initial encounter Medications lidocaine-EPINEPHrine (Xylocaine W/EPI) 1 %-1:607977 injection 10 mL (has no administration in timerange) sulfamethoxazole-trimethoprim (Bactrim DS) 800-160 MG per tablet 1 tablet (has no administration intime range) cephalexin (Keflex) capsule 500 mg (has no administration in time range) REVAL: CRITICAL CARE TIME None CONSULTS: None PROCEDURES: Unless otherwise noted below, none Laceration Repair Performed by: Chetan Powell MD Authorized by: Chetan Powell MD Consent: Consent obtained: Verbal Consent given by: Patient [place] protocol: Imaging studies available: yes Patient identity [...] Discharge 04/13/2025 09:39:45 PM PATIENT REFERRED TO: [address] [address] Schedule an appointment as soon [...] are any questions or concerns please feel freeto contact the dictating provider for clarification.) Roddy Powell MD (electronically signed) Emergency Medicine Provider [1] Past Medical History: Diagnosis Date Anxiety Arthritis Asthma Sanchez's fracture of left radius, subsequent encounter for closed fracture with malunion scheduled for the surgery on 04/17/2018 at [facility] COPD (chronic obstructive pulmonary disease) ([facility]) Diabetes mellitus type 2, controlled (CMS/HCC) ([facility]) [place] (hard of hearing) HAS HEARING AID BOTH EARS , BUT DID NOT WEAR THEM Hyperlipidemia Hypertension MELISSA on CPAP [2] Past Surgical History: Procedure Laterality Date COLONOSCOPY COLONOSCOPY ELBOW SURGERY Left 1990 Lateral epicondylitis surgery EYE SURGERY bilat cataracts and implants JOINT REPLACEMENT Bilateral TKA L 2005, TKA R 2011 SKIN BIOPSY SPINAL FUSION 2000 L2,3,4; AT [facility] WRIST ARTHROSCOPY (HISTORICAL) Left 04/17/2018 [...] Drug use: No Chetan Powell MD 04/13/252221 [facility] Discharge summary [facility] Medical Records Department [address] [place] [address] Emergency Department Summary 04/09/25 MR#: [id number] Acct: [id number] Name: KEVIN GRIFFITH Rep #:[id number] : [...] his sugar recently and it was low at66 so his daughter is making him eat. He is unsure of his last tetanus immunization. He denies other injury. He states he does not take blood thinners. Tetanus Immunization: <5 years [facility] Medical History Parkinson's disease Right bundle branch [...] 2 cm laceration on the leftfrontal scalp withoutactive bleeding, no apparent galeal involvement. PERRL, EOMI. Neck without vertebral point tenderness or bony step-off. Cardiovascularexamination regular rate and rhythm, lungs clear to auscultation b ilaterally. Abdomen is soft, nontender, with positive bowel [...] cervical spine. I reviewed his prior records andhis immunization/Tdap is current, given in November of this year. CT of the cervical spine and brain obtained and I reviewed the radiology reports, there is no acuteintracranial hemorrhage noted, no significant change from prior exam, CT of the cervical spine shows no fracture but degenerative changes. Procedure note: Wound was cleansed using Shur-Clens and normal saline. Through exploration there isno apparent galeal involvement. The 2 cm laceration [...] change from the prior exam. Reading Location: [facility] Cervical Spine CT 04/09/25 11:34 IMPRESSION: 1. No acute fracture. 2. Degenerative changes of the cervical spine as described. Reading Location: [facility] Discharge Plan Triage Chief Complaint: Head Injury ED Provider: Surya Dumont Dx/Rx/DC Orders Clinical Impression: Fall, Laceration of scalp Instructions: ED Head Injury (Adult), ED Laceration Scalp Stitches or [place] Prescriptions: No Action pravastatin 80 mg tablet [...] days. There were a total of 5 staplesinserted. Return to the emergency department with fever, drainage of pus from wound, new or worsening symptoms. Print Language: Armenian Disposition Disposition: Home, Self Care What to do if you have Problems For any increased pain, shortness of breath, bleeding, nausea or vomiting, chestpain, or any unexpected problems, contact your Primary Care Provider. Call [facility] ([phone]) or report tothe closest Emergency Room. Call 911 if necessary. 04/09/25 1255 Cosigner Signature (if applicable): CC: Dr. Ron Cooley MD ~ Signed [facility]05-21-2025 Radiology Diagnostic study note [facility] Imaging Services [address] [place] [address] Spine Cervical without Contras MR#: [id number] Acct: [id number] Name: KEVIN GRIFFITH Rep #: [id number] : 1945 M 79 From: Kristy Corey MD PCP: Dr. Ron Cooley MD Status: RE G ER Study:Spine Cervical without Contras Date of Exam: 04/09/25 Exam# [id number] Ordering Dr: Surya Dumont MD EXAM: CT [...] the cervical spine as described. Reading Location: [facility] CC: Dr. Surya Dumont MD; Dr. Ron Cooley MD ~ Air Export Operations Agent: Signed [facility]05-21-2025 Radiology Diagnostic study note [facility] Imaging Services [address] [place] [address] Brain/Head without Contrast MR#: [id number] Acct: [id number] Name: KEVIN GRIFFITH Rep #: [id number] : 1945 M 79 From: Kristy Corey MD PCP: Dr. Ron Cooley MD Status: RE G Study:Brain/Head without Contrast Date of Exa m: 04/09/25 Exam# [id number] Ordering Dr: Surya Dumont MD EXAM: CT Head Without Intravenous Contrast CLINICAL INDICATION: TRAUMA TECHNIQUE: Axial computed tomography images of the head/brain without intravenous contrast. This CTexam was performed using one or more of [...] mass effect. If symptoms persist, further evaluation withMRI is recommended. BONES/JOINTS: Unremarkable. No acute fracture. [...] change from the prior exam. Reading Location: [facility] CC: Dr. Surya Dumont MD; Dr. Ron Cooley MD ~ Air Export Operations Agent: Signed [facility]05-21-2025 Hospital Discharge instructions Additional Instructions Have brandi removed by your primary care provider in 7 to 10 days. There were a total of 5 brandi inserted. Return to the emergency department with fever, drainage of pus from wound, new or worsening symptoms.[facility] Work Phone: 1(216) 152-543003-28-2025 Radiology Diagnostic study note [facility] Imaging Services [address] [place], [place] [address] Spine Cervical without Contras MR#: [id number] Acct: [id number] Name: KEVIN GRIFFITH Rep #: [id number] : 1945 M 79 From: Roopa Corbett MD PCP: Dr. Ron Cooley MD Status: RE G ER Study:Spine Cervical without Contras Date of Exam: 02/14/25 Exam# [id number] Ordering Dr: Aziza Soto DO PROCEDURE: SPINE CERVICAL WITHOUT CONTRAS [...] C5 and C6 vertebral body height loss. Multileveldegenerative disc disease. Soft Tissues: No prevertebral or subcutaneous hematoma. CT/Spine Cervical without Contras IMPRESSION: NO ACUTE CERVICAL FRACTURE. DEGENERATIVE CHANGES. Reading Location: [facility] CC: Dr. Ron Cooley MD; Dr. Joe Soto DO ~ Air Export Operations Agent: Signed [facility]03-28-2025 Radiology Diagnostic study note [facility] Imaging Services [address] [place] [address] Brain/Head without Contrast MR#: [id number] Acct: [id number] Name: KEVIN GRIFFITH Rep #: [id number] : 1945 M 79 From: Roopa Corbett MD PCP: Dr. Ron Cooley MD Status: RE G ER Study:Brain/Head without Contrast Date of Exa m: 02/14/25 Exam# [id number] Ordering Dr: Aziza Soto DO EXAM: BRAIN/HEAD [...] with concordant prominence of the ventricles and subarachnoidspaces. Mild scattered supratentorial white matter hypodensities. The [...] ischemic change and age-related change. Reading Location: [id number] CC: Dr. Ron Cooley MD; Dr. Joe Soto DO ~ Air Export Operations Agent: Signed [facility]03-20-2025 Evaluation note* Diagnosis Onset Date Resolution Status Admit Date Diplopia acute February 06 1:00pm Dysphagia acute February 06 1:00pm Abnormality of gait and mobility chr onic February 06, 2025 1:00pm Dementia chronic February 06 1:00pm Parkinson's disease chronic February 06, 2025 1:00pm Polyneuropathy chronic January 1:00pm Dysphagia acute March 20, 2025 3:22pm Abnormality of gait and mobility chr onic March 20, 2025 3:22pm Dementia chronic March 20, 2025 3:22pm Parkinson's disease chronic March 202024 3:22pm Polyneuropathy chronic March 20, 2 025 3:22pm [facility] Work Phone: 1(777) 506-223003-04-2025 Radiology Diagnostic study note [facility] Imaging Services [address] [place] [address] Chest PA and Lateral MR#: [id number] Acct: [id number] Name: KEVIN GRIFFITH Rep #: [id number] : 1945 M 79 From: Kristy Corey MD PCP: Dr. Ron Cooley MD Status: RE G CLI Study:Chest PA and Lateral Date of Exam: 01/21/25 Exam# [id number] Ordering Dr: Ron Cooley MD EXAM: XR Chest, 2 Views CLINICAL INDICATION: TECHNIQUE: Frontal and lateral views of the chest. COMPARISON: No relevant prior studies available. FINDINGS: LUNGS AND PLEURAL SPACES: Unremarkable. No consolidation. No pneumothorax. HEART: Unremarkable. No cardiomegaly. MEDIASTINUM: Unremarkable. Normal mediastinal contour. BONES/JOINTS: Unremarkable. No acute fracture. RAD/Chest PA and Lateral IMPRESSION: No acute cardiopulmonary process. Reading [facility] CC: Dr. Ron Cooley MD ~ Air Export Operations Agent: Signed [facility]01-21-2025 Evaluation note* Diagnosis Onset Date Resolution Status Admit Date Diplopia acute December 10, 2024 10:37am Dysphagia acute December 10, 2024 10:37am Abnormality of gait and mobility chronic December 10 10:37am Dementia chronic December 10, 2024 10:37am Parkinson's disease chronic 2024 10:37am Polyneuropathy chronic December 102024 10:37am [facility] Work Phone: 1(335) 840-510201-21-2025 Evaluation note* Diagnosis Onset Date Resolution Status [...] chronic February 06, 2025 1:00pm Dementia chronic March 20th, 20 25 1:00pm Parkinson's disease chronic February 06, 2025 1:00pm Polyneuropathy chronic January 1:00pm [facility] Work Phone: 1(632) 546-811901-21-2025 Evaluation note* Diagnosis Onset Date Resolution Status [...] 202024 3:22pm Polyneuropathy chronic March 20, 2 3:22pm [facility] Work Phone: 1(519) 834-114108-02-2023 [facility] 02-15-2023 NoteHNO ID: [id number] Author: Kori Ryder, PT, DPT Service: ? Author Type: Physical Therapist Type: Progress Notes Filed: 02/15/2023 7:45 AM Note Text: 02/15/2023 [facility] PHYSICAL THERAPY [...] appointments due to fx of foot. Kori Ryder, PT, [facility]03-28-2023 Miscellaneous Notes* Telephone Encounter - Seven Harrison RN - 02/14/2023 3:08 PM EDT MC message sent to patient and for further assessment. Awaiting reply. YVONNE Naik, RN February 14, 2023 3:08 PM * Telephone Encounter - Seven Harrison RN - 02/14/2023 3:04 PM EDT Received voicemail from patients' on Mon02/14/2023 2:28 PM Transcript below: This is Brennen Griffith. My phone number is [phone]. I'm calling for my Kevin Griffith. His [...] really bad or it's gonna be a longterm and I don't wannado that so please give me a call at your earliest convenience. Thank you. Abbey. Message shared with CAR for further guidance. Seven Harrison, YVONNE, RN February 14, 2023 3:04 PM * [...] is very concerned. Please call her at [phone]. Raeann Carmita [facility] Farooq [facility] February 11, 2023 2:01pm Note Date/Time February 11, 2023 1:2 0pm [facility] Medical Records Department [address] [place] [address] Emergency Department Summary 02/11/23 MR#: [id number] Acct: [id number] Name: KEVIN GRIFFITH Rep #:[id number] : [...] bear weight on it since the injury. [facility] Medical History Arthritis Back problem Cataract Essential [...] no malocclusion, able to move his mandible [id number] without any discomfort. Zygomatic arch is nontender [...] motor deficits and no sensory deficits noted Stacy Coma Scale: document GCS findings Spontaneous Obeys [...] Donnell Blanton MD, JD at 13:49 EDT , Discharge Plan Triage [...] your Primary Care Provider. Call [facility] ([phone]) or report to the closest Emergency Room. Call 911 if necessary. 02/11/23 1401 <Electronically signed by Osman Farooq MD> Cosigner Signature (if applicable): CC: Dr. Ron Cooley MD; Dr. Arnaud Jean-Baptiste MD ~ Signed [facility] Work Phone: [phone] 727-583902-24-2023 Miscellaneous Notes* Telephone Encounter - Karen Parra RN - 01/13/2023 2:26 PM EST Received voicemail 01-13-23 at 12:31 PM. My name is Brennen Griffith. My phone number is [phone]. This is in regard to Kevin Griffith. [...] is Brennen Griffith. My phone number is [phone]. My 's name is Kevin Griffith. He [...] do to help Kevin. Thank you. Abbey dumasbijal now. Call to patient Reports decline in [...] to provider for review. documented in this encounterThe [facility]01-23-2023 NoteHNO ID: [id number] Author: Leni Ruiz APRN.RIGHT OF WAY SUPERVISOR Service: ? Author Type: Nurse Practitioner Type: Progress Notes Filed: 12/13/2022 10:48 PM Note Text: [facility] - FOLLOW UP EVALUATION Ron Cooley MD [address] [facility] [address] [facility] [address] Dear Ron Cooley MD: I had the [...] Flowsheet Row OT/PT/Speech Visit from 10/04/2022 in [facility] Outpatient Physical Therapy OT/PT/Speech Visit from 08/25/2022 in [facility] Outpatient Physical Therapy Global Physical Health [...] three times daily. insulin (more content not included)...[facility]01-23-2023 Instructions* Patient Instructions* Leni Ruiz APRN.RIGHT OF WAY SUPERVISOR - 12/12/2022 2:56 PM EST It was [...] canhave them [facility]. Interested in clinical research? Not currently Movement Disorders Medication Schedule: Medications 6am 12pm 5pm Bedtime Sinemet 25/100 2 2 1 1 Sertaline 50mg 1 Return in about 6 months (around 06/11/2023). If there are any concerns before your next visit, please call or you can send a message through Askem. You can also now schedule and select appointments through Askem. Leni Ruiz APRN.RIGHT OF WAY SUPERVISOR documented in this encounterThe Jewish Hospital01-23-2023 History of Present illness Narrative* Leni Ruiz APRN.RIGHT OF WAY SUPERVISOR - 12/12/2022 2:00 PM EST [facility] - FOLLOW UP EVALUATION Ron Cooley MD [address] [facility] [address] Dear Ron Cooley MD: I had the [...] Flowsheet Row OT/PT/Speech Visit from 10/04/2022 in [facility] Therapy OT/PT/Speech Visit from 08/25/2022 in [facility] Outpatient Physical Therapy Global Physical Health [...] Last PT Date: Last OT Date: Last Date: Exercises Regularly: ALLERGIES Allergen Reactions Reglan [...] D3 50 MCG, 2,000 UNIT, GUMMIES) fluticasone fdwspxa-jvhgbvhgerxl-qsopwmfgsb (TRELEGY ELLIPTA) 200-62.5-25 mcg powder inhaler Inhale1 [...] OXYGEN-AIR DELIVERY SYSTEMS MISC Inhale as instructed. [employer] CALIXTO 2 SENSOR kit use to TEST BLOOD SUGAR as directed CHANGE EVERY 14 DAYS SURE COMFORT PEN NEEDLE 31 gauge x 16 No current facility-administered medications for this visit. Objective Vital Signs: Ht 177.8 cm (5' 10) Wt 118.3 kg (260 lb 12.8 oz) SpO2 96% BMI 37.42 kg/m Orthostatic Vitals: Sitting: BP 124/78 Pulse 114 Standing: BP 105/69 Pulse 115 No LMP for male patient. Body mass index is 37.42 kg/m . Movement Disorders Scales Performed: [place] Cognitive Assessment (MoCA) Visuospatial/Executive 5 Naming 2 [...] parkinsonian. Then he underwent surgical evaluation at [facility] and DaTscan done there was indicative of [...] canhave them [facility]. Interested in clinical research? Not currently Updated Movement Disorders Medication Schedule: Medications 6am 12pm 5pm Bedtime Sinemet 25/100 2 2 1 1 Sertaline 50mg 1 Level of service : 59862 (40-54 min). Time spent 51 ( 1:54pm-2:45pm) min on the day of service, which included preparing to see the patient, xkef-ii-xsof patient care, completing clinical documentation, obtaining and/or reviewing separately obtained history, performing a medically appropriate examination, and counseling and educating the patient/family/caregiver. Leni Ruiz APRN.RIGHT OF WAY SUPERVISOR documented in this encounterThe Jewish Hospital11-21-2022 Miscellaneous Notes* Telephone Encounter - Thaddeus Wilkinson MD - 10/10/2022 3:30 PM EST Thanks for the FYI. Well done! [facility] * Telephone Encounter - Seven Harrison RN - 10/10/2022 2:32 PM EST Received voicemail from patient on Mon10/10/2022 9:09 AM Transcript below: Morning this is Kevin Griffith and my phone number is [phone]. I calling to find out if there'sa [...] Voicemail left directing patient to a detailed Askem message. Requested reply via MC or RCTO. Provided office number. Message shared with covering provider as CAR is OOO. Seven Harrison, MSN, RN October 10, 2022 2:44 PM documented in this encounterThe Jewish Hospital11-15-2022 NoteHNO ID: [id number] Author: Kori Ryder, PT, DPT Service: ? [...] Time Minutes (timed/untimed): 45 Kori Ryder PT, [facility]11-15-2022 History of Present illness Narrative* Kori [...] Kori Ryder PT, DPT documented in this encounterThe Jewish Hospital10-28-2022 Miscellaneous Notes* Addendum Note - Jaylyn Nieves [...] accepted: Orders * Telephone Encounter - Lena Cleo [facility] - 09/16/2022 11:40 AM EDT Script pending to go to [facility]. Electronically signed by Lenapatricia Gallo [facility] at 09/16/2022 11:43 AM EDT documented in this encounterThe Jewish Hospital10-28-2022 Miscellaneous Notes* Telephone Encounter - Seven Harrison RN - 09/16/2022 8:48 AM EDT Called and left voicemail that an updated RX had been sent for the Cymbalta. Provided office number for RCTO and option to message via Askem. YVONNE Naik, RN September 16, 2022 8:48 [...] New order pended to this encounter. YVONNE aNik, RN September 15, 2022 4:40 PM * Telephone Encounter - Seven Harrison RN - 09/14/2022 2:41 PM EDT Called daughter Barbi and shared update. She will confer with her mother and father and update theoffice as needed. Seven Harrison, YVONNE, RN September 14, 2022 2:42 PM * [...] detailed message requesting RCTO. Provided office number forbrial back. Awaiting reply. YVONNE Naik, RN September 13, 2022 12:31 PM * Telephone Encounter - Lena Adams - 09/12/2022 2:34 PM EDT NI PHONE NAME OF CALLER: Brennen RELATIONSHIP TO PATIENT: spouse PATIENT ID'D BY NAME/: yes REASON FOR CALL: States that his PD symptoms are worsening and she would like to speak with Stefania. CALLBACK #: [phone] OK TO LEAVE MESSAGE: ok only on this number - do not leave at home number LAST FUV: 08/04/22 with CAR documented in this encounterThe Jewish Hospital10-27-2022 NoteHNO ID: [id number] Author: Kori Ryder, PT, DPT Service: ? [...] Patient to be seen for Therapeutic exercise (17231);Neuromuscular re-education (24447);Manual therapy (46838);Therapeutic activities (68244);Self-detention management (81753);Gait Training (80255);Functional training;General Conditioning;Body Mechanics Training;Patient/Family/Caregiver Education PLAN FOR [...] Time Minutes (timed/untimed): 45 (more content not included)...[facility] Hospital[facility]azfmuz99-18-9170 NoteHNO ID: [id number] Author: Aleida Ramirez MD Service: ? Author [...] could not see the pt. REFERRAL SOURCE: [facility] Physician - Dr. Nieves CHIEF COMPLAINT: Anxiety. [...] 1 tablet by mouth twice daily. fluticasone qfwmcmf-eeefplderteg-zizuejjpya (TRELEGY ELLIPTA) 200-62.5-25 mcg powder inhaler Inhale [...] Negative for malaise, signif (more content not included)...[facility]10-14-2022 History of Present illness Narrative* Aleida Ramirez [...] could not see the pt. REFERRAL SOURCE: [facility] Physician - Dr. Nieves CHIEF COMPLAINT: Anxiety. [...] 1 tablet by mouth twice daily. fluticasone wcslhsx-gtjdijfqjnyp-dlhmuumatm (TRELEGY ELLIPTA) 200-62.5-25 mcg powder inhaler Inhale1 [...] prior psychiatrist Therapist: No prior therapist Current Hearing Specialist: None Last Hospitalization: Denies hospitalization. ECT: None Previous Discontinued Psychiatric Med Trials: None SUBSTANCE USE HISTORY: Nicotine: 40 py, quit 23 years ago Caffeine: Coffee, 3 cups/day Alcohol: Drank when he was younger, Marijuana: No history of use or dependence Cocaine: No history of use or dependence Opiods: No history of use or dependence SPIRITUALITY: [facility]: Kevin Griffith is the oldest of 6 siblings. The patient was born and raised in [place]. He completed school He described his childhood [...] PAGER : see directory documented in this encounterThe Jewish Hospital10-06-2022 NoteHNO ID: [id number] Author: Kori Ryder, PT, DPT Service: ? [...] Time Minutes (timed/untimed): 38 Kori Ryder PT, DPSelect Medical TriHealth Rehabilitation [id number] History of Present illness Narrative* Kori Ryder PT, HERBT - 08/25/2022 5:11 PM EDT Episode Visit [...] Kori Ryder PT, DPT documented in this encounterThe Jewish Hospital09-22-2022 NoteHNO ID: [id number] Author: Kori Ryder PT, DPT Service: ? [...] Planned: 4 Planned Treatment Interventions: Therapeutic exercise (86242);Neuromuscular re-education (81426);Manual therapy (55076);Therapeutic activities (99983);Self-detention management (28624);Gait Training (83746);Functional training;General Conditioning;Body Mechanics Training;Patient/Family/Caregiver Education PLAN FOR [...] the average of the (more content not included)...[facility] HospitalIqdsnjwm85-48-1111 NoteHNO ID: [id number] Author: Jaylyn Nieves MD Service: ? Author Type: Physician Type: Progress Notes Filed: 08/04/2022 5:35 PM Note Text: [facility] - FOLLOW UP EVALUATION MD Bessie Gavin [address] [facility] [address] [facility] [address] I had the pleasure of seeing Mr. [...] 1 tablet by mouth twice daily. fluticasone mjgkjca-uhvgxauspith-mhhxolyzgk (TRELEGY ELLIPTA) 200-62.5-25 mcg powder inhaler Inhale [...] 24 hr table (more content not included)... [facility]09-15-2022 Instructions* Patient Instructions* Jaylyn Nieves MD - [...] or you can send a message through Askem. You can also now schedule and select appointments through Askem. Jaylyn Nieves MD documented in this encounterThe Jewish Hospital09-15-2022 History of Present illness Narrative* Jaylyn Nieves MD - 08/04/2022 2:20 PM EDT [facility] - FOLLOW UP EVALUATION Ron Cooley MD [address] [facility] [address] [facility] [address] I had the pleasure of seeing Mr. [...] 1 tablet by mouth twice daily. fluticasone eafqrts-pcvzyglgulbz-hvlwyqjklj (TRELEGY ELLIPTA) 200-62.5-25 mcg powder inhaler Inhale1 [...] parkinsonian. Then he underwent surgical evaluation at [facility] and DaTscan done there was indicative of [...] gait he reports both lightheadedness and imbalance. [place] symptomatic today upon standing but orthostatics were [...] or around: 11/03/22 Level of service : 01025 (40-54 min). Time spent 45 min on the day of service, which included preparing to see the patient, tzsf-fq-whsj patient care, completing clinical documentation, performing a [...] Sincerely, Jaylyn Nieves MD documented in this encounterThe Jewish Hospital09-09-2022 NoteHNO ID: [id number] Author: Kori Ryder, PT, DPT Service: ? Author Type: Physical Therapist Type: Progress Notes Filed: 07/29/2022 4:54 PM Note Text: 07/29/2022 [facility] PHYSICAL THERAPY DISCONTINUANCE OF CARE Plan of Care Period: Start of Care Date: 05/10/22 Last Visit Date: 03/29/2022 Therapy Program: Patient did not return for follow up care as planned. Please refer to last visit note for interventions provided for this episode of care. Assessment: Unable to formally assess goal achievement. Reason for Discontinuation of Care: Patient has not returned to therapy or scheduled additional follow-up appointments. Kori Ryder, PT, [facility]09-01-2022 Miscellaneous Notes* Telephone Encounter - Seven Harrison RN - 07/21/2022 12:08 PM EDT Received voicemail from patient's on Rosalia 07/21/2022 10:52 AM Transcript below: Kaila my name is Brennen Griffith. My 's name is Kevin Griffith. He is a patient of Dr. Gordillo. My phone number is [phone]. I'm calling to speak to somebody regarding [...] Updates shared with MD CAR & SS, ENGRAVER RUBBER. If any guidance is suggested, RN will contact with feedback. Seven Harrison, YVONNE, RN July 21, 2022 12:42 PM documented in this encounterThe Jewish Hospital06-29-2022 Miscellaneous Notes* Telephone Encounter - Jaylyn Nieves [...] REJI: No Blossom S documented in this encounterThe Jewish Hospital05-10-2022 NoteHNO ID: [id number] Author: Maine Medel, PT, DPT Service: ? [...] SLS >10 seconds B [facility]. Patient will demonstrate increase in B hip strength strength to 5/5 during manual muscle testing in order to improve function for balance Increase strength in ankle to 5/5 for balance. Be able to turn in a chinik in 8 steps. Decrease tug to <10 seconds without AD for improved richard and step length Patient Goals: to learn about PD, to reduce falls Planned Interventions, Frequency, and Duration: Current Frequency: 1x/week Duration: 4 weeks (starting in one month) Total Number of Visits Planned: 4 Planned Treatment Interventions: Therapeutic exercise (19932);Neuromuscular re-education (32098);Manual therapy (54153);Therapeutic activities (52780);Self-detention management (41809);Gait Training (78281);Functional training;General Conditioning;Body Mechanics Training PLAN FOR NEXT [...] for double vision Visi (more content not included)...[facility] HospitalXgljfqwg72-03-0818 NoteHNO ID: [id number] Author: MANUEL Grande/Eric Service: ? Author Type: Occupational Therapist Type: Progress Notes Filed: 03/29/2022 5:40 PM Note Text: Episode Visit Count: 2 Therapist That Will Oversee The Plan Of Care: Maria Isabel Romano Start of Care Date: 03/29/22 Onset Date: 06/14/21 Plan of Care Certification Date: 03/29/22 Next Certification Due Date: 03/29/22 Patient Identified by Name and Date of : Yes [facility] OCCUPATIONAL THERAPY [...] WITH LEVEL OF FUNCTION: Hand Strength R Acetylene Gas Compressor Position 2 (lbs): 71 lbs L Acetylene Gas Compressor Position 2 (lbs): 60 lbs R Lateral [...] States/Identifies;Return Demonstration TREATMENT: OT Treatment Interventions : Self-Assisted Management Evaluation Self-Assisted Management: 1: Pt and spouse educated in role of OT 2: Discussed importance of hydrating with medication and avoiding proteins with meds (more content not included)...[facility] HospitalFcsuuvjs12-84-3192 NoteHNO ID: [id number] Author: Sakina Ro CCC-FREIGHT HUSTLER Service: ? Author Type: Speech Language Pathologist Type: Progress Notes Filed: 03/29/2022 3:59 PM Note Text: Episode Visit Count: 1 Therapist That Will Oversee The Plan Of Care: Andrade Start of Care Date: 03/29/22 Onset Date: 11/20/20 Plan of Care Certification Date: 03/29/22 Patient Identified by Name and Date of : Yes [facility] SPEECH and [...] position 20-30 minutes following all oral intake FREIGHT HUSTLER Recommendations: Swallowing Precautions;Discontinue Speech Therapy Results and [...] MBS (pt reports had MBS done at [place] last year, which pt was told 'he did fine' and no recommendations for follow up ST or diet modifications made) Clinical Swallow [place] Swallow Protocol: Fail Fail: Coughing episodes (x1 [...] clear/cough after water (more content not included)... [facility] HospitalKzwwapba28-96-5465 History of Present illness Narrative* Maine Medel, PT, DPT - 03/29/2022 3:40 PM EDT [...] SLS >10 seconds B [facility] [facility]. Patient will demonstrate increase in B hip strength strength to 5/5 during manual muscle testing inorder to improve function for balance Increase strength in ankle to 5/5 for balance. Be able to turn in a chinik in 8 steps. Decrease tug to <10 seconds without AD for improved richard and step length Patient Goals: to learn about PD, to reduce falls Planned Interventions, Frequency, and Duration: Current Frequency: 1x/week Duration: 4 weeks (starting in one month) Total Number of Visits Planned: 4 Planned Treatment Interventions: Therapeutic exercise (02634);Neuromuscular re- education (19813);Manual therapy (73029);Therapeutic activities (04423);Self- detention management (34151);Gait Training (47876);Functional training;General Conditioning;Body Mechanics Training PLAN FOR NEXT [...] Maine Medel PT DPT documented in this encounterThe Jewish Hospital05-10-2022 History of Present illness Narrative* Sakina Ro CCC-FREIGHT HUSTLER - 03/29/2022 2:49 PM EDT Episode Visit Count: 1 Therapist That Will Oversee The Plan Of Care: Andrade Start of Care Date: 03/29/22 Onset Date: 11/20/20 Plan of Care Certification Date: 03/29/22 Patient Identified by Name and Date of : Yes [facility] SPEECH and [...] position 20-30 minutes following all oral intake FREIGHT HUSTLER Recommendations: Swallowing Precautions;Discontinue Speech Therapy Results and [...] MBS (pt reports had MBS done at [place] last year, which pt was told 'he [...] Eval Sound Production with Language Expression and Felt Cementer (17189) Swallow / Dysphagia (29386): Skilled Intervention: Educated and advised patient / caregiver on texture and liquid consistency recommendations., Instructed patient / caregiver on recommended compensatory strategies to maximize safety with oral intake while maintaining nutrition, hydration and medication stability. Speech/Language Therapy (12902): Skilled Intervention: Educated and instructed patient on [...] Eval Sound Production with Language Expression and Felt Cementer (34930), Clinical Swallow Evaluation (91146), Speech Treatment (81703) and Dysphagia Treatment (18485) Total time / Length of visit: 60 minutes Sakina Ro CCC-FREIGHT HUSTLER documented in this encounterThe Jewish Hospital05-10-2022 NoteHNO ID: [id number] Author: Jaylyn Nieves MD Service: ? Author Type: Physician Type: Progress Notes Filed: 03/29/2022 7:35 PM Note Text: [facility] - Multidisciplinary Clinic Jaylyn Nieves [address] [facility] [address] [facility] [address] Ron Cooley MD [address] [facility] [address] I had the pleasure of seeing Mr. [...] since last visit underwent surgical evaluation at [facility] and DaTscan done there indicative of neurodegenerative [...] addressed during this visit (more content not included)...[facility]05-10-2022 Instructions* Patient Instructions* Jaylyn Nieves MD - [...] or you can send a message through Askem. You can also now schedule and select appointments through Askem. Jaylyn Nieves MD documented in this encounterThe Jewish Hospital05-10-2022 History of Present illness Narrative* Jaylyn Nieves MD - 03/29/2022 12:27 PM EDT [facility] - Multidisciplinary Clinic Jaylyn Nieves [address] [facility] [address] [facility] [address] Ron Cooley MD [address] [facility] [address] [facility] [address] I had the pleasure of seeing Mr. [...] Then since last visit underwent [facility] and DaTscan done there indicative of neurodegenerative [...] in 1 week Level of service : 34076 (40-54 min). Time spent 53 min on the day of service, which included preparing to see the patient, rjno-qc-cqjz patient care, completing clinical documentation, counseling and [...] Sincerely, Jaylyn Nieves MD documented in this encounterThe Jewish Hospital05-04-2022 Miscellaneous Notes* Telephone Encounter - Braynna Haas MA - 03/23/2022 10:44 AM EDT I called patient to get him pre-roomed for his upcoming appointment. I had to leave a voicemail fora returned call. If patient calls back please transfer call to myself or a clinical staff member to complete this process. Thanks! Bryanna Haas MA documented in this encounterThe Jewish Hospital04-28-2022 NoteHNO ID: [id number] Author: Jaylyn Nieves MD Service: ? Author Type: Physician Type: Progress Notes Filed: 03/18/2022 4:12 PM Note Text: [facility] - FOLLOW UP EVALUATION No referring provider defined for this encounter. Ron Cooley MD [facility] [address] [address] I had the pleasure of seeing Mr. [...] to be helpful Interval History Seen at [facility] for surgical evaluation. SDR was [...] mouth three times daily. (more content not included)...[facility]04-28-2022 Instructions * Patient Instructions* Jaylyn Nieves MD [...] or you can send a message through Askem. You can also now schedule and select appointments through Askem. Jaylyn Nieves MD Parkinson s Multidisciplinary Clinic [...] appointment. This call will serve as a ckv-saupr-ay and be used to review your medications, [...] caregivers, and staff alike. documented in this encounterThe Jewish Hospital04-28-2022 History of Present illness Narrative* Jaylyn Nieves MD - 03/17/2022 2:51 PM EDT [facility] - FOLLOW UP EVALUATION No referring provider defined for this encounter. Ron Cooley MD [address] [facility] [address] I had the pleasure of seeing Mr. [...] to be helpful Interval History Seen at [facility] for surgical evaluation. SDR was [...] Then since last visit underwent surgical evaluationat [facility] and DaTscan done there indicative of neurodegenerative [...] or around: 07/17/22 Level of service : 16457 (40-54 min). Time spent 54 min on the day of service, which included preparing to see the patient, eluq-gd-vpgs patient care, completing clinical documentation, obtaining and/or [...] Sincerely, Jaylyn Nieves MD documented in this encounterThe Jewish Hospital03-24-2022 History of Present illness Narrative* Jaspreet Qureshi MA - 02/10/2022 11:48 AM EDT Images from the original note were not included. SDR for Yujose miguel_S came in at 0.34 with 973 available elements. Other than the low SDR no significantCT deviations noted. documented in this [id number] History of Present illness Narrative* Barb Morton MD - 12/22/2021 10:05 AM EST Video Visit [facility] NEUROSCIENCE [address] [facility] [address] [facility] [address] Via Real-time Synchronous Audiovisual [facility] 12/21/2021 Barb Morton MD Provider Location: [facility] Patient Location Printed Circuit Boards Solder Leveler: None Patient Location: Patient's Home Patient: Kevin [...] that there are some limitations compared to ujla-ct-szgz evaluations. We elected to proceed. Subjective Patient [...] Office# Barb Morton MD documented in this [id number] Instructions* Patient Instructions* Barb Morton MD - 12/21/2021 1:33 PM EST Parkinson's Disease Continue the medication Use seroquel at night If you decide that you want to switch to Dr Royal let me know documented in this [id number] Miscellaneous Notes* Telephone Encounter - Jaspreet Qureshi MA - 11/09/2021 11:43 AM EST Spoke to Bryanna (Pharmacist) for clarification of patient's prescription carbidopa-levodopa (SINEMET) 25-100 mg per tablet [facility] will disp 540 (90 day supply) will 3 refills Please sign script that was called in documented in this [id number] History of Present illness Narrative* Barb Morton [...] pt on at 1230pm. documented in this [id number] History of Present illness Narrative* Barb Morton MD - 11/05/2021 12:21 PM EST I called on 11/05/21 to discuss the results of the meeting and to discuss questions documented in this [id number] History of Present illness Narrative* Jim Bradford [...] tremor. Therefore, the patient was evaluated by ourtxvement disorders neurologist, Dr. Barb Morton, as to [...] Dr Morton will call. documented in this [id number] History of Present illness Narrative* Jaspreet Qureshi MA - 11/03/2021 2:29 PM EST Images from the original note were not included. SDR - 0.34 with 973 available elements. Other than the low SDR no significant CT deviations noted. documented in this [id number] History of Present illness Narrative* Sarah Mckenzie, PT - 10/28/2021 11:00 AM EST Images from the original note were not included. [facility] Physical Therapy Evaluation Today's Date [...] whether he wants to follow-up hereor in [place] as it is significantly closer to home. [...] medications for tremor - has tried one. [place] drunk all of th time. Freezing of [...] mobility Social Support: Patient lives with others. Pentecostalism, social, or cultural considerations to be made [...] in the last 12 months: Yes (concussion) Pentecostalism, social, or cultural considerations to be made [...] at this time were answered. CPT Code 18690 Low 27832 Moderate 12792 High History 0 1-2 3+ Comorbidities: chronic [...] Clinical Impression: . Kevin Griffith presents to [facility] outpatient neurological rehab services for PT [...] above number. Sarah Mckenzie, PT STATE LICENSE, PT.[id number] documented in this [id number] Instructions* Patient Instructions* Barb Morton MD - 10/05/2021 11:[address] Head Physical therapy DATSCAN-the yes/no Parkinson's disease test Jim Suzette is the navigator Dr. Barb Morton MD Neurology Office Information Jaspreet Qureshi MA Office# documented in this [id number] History of Present illness Narrative* Barb Morton [...] whether he wants to follow-up hereor in [place] as it is significantly closer to home. [...] Without Contrast; Future - Ambulatory Ref to [facility] (PT/OT/ST); Future Patient Instructions Tremor CT Head Physical therapy DATSCAN-the yes/no Parkinson's disease test Jim Bradford is the navigator Dr. Barb Morton MD Neurology Office Information Jaspreet Qureshi MA Office# Dr. Barb Morton MD Neurology Office Information Jaspreet Qureshi MA Office# Barb Morton MD documented in this [id number] History of Present illness Narrative* Roberto Carlos [...] with simple mask at 10 LPM oxygen. ultrasound tech called. * Mame Machado PA-C - 05/19/2021 [...] informed. Mame Machado PA-C [facility] this [facility] Work Phone: [phone] Hospital Discharge instructions* Instructions* Kori Casillas RN - 05/05/2021 Shower with the Hibiclens product given to you in Pre-Admission Testing. Follow the instructions and wear clean clothes to bed and clean linen on the bed the night before surgery. Follow the instructions and shower the morning of surgery and wear clean, comfortable clothes to the hospital. Please bring your [facility] Information folder on the day of [...] call your surgeon. You may use the barytes grinder parking located at the main entrance on [address] [facility] and take the H elevator to the first floor for same day surgery. Take a left after exiting the elevator and check in at the desk. * Attachments The following attachments cannot be sent through Care Everywhere. * Laminotomy and Laminectomy: General Info (Armenian) documented in this encounter[facility] Work Phone: Discharge summary Author Surya Dumont [facility] Note Date/Time April 09, 2025 12:55 pm [facility] Medical Records Department [address] [place] [id number] Emergency Department Summary 04/09/25 MR#: [id number] Acct: [id number] Name: KEVIN GRIFFITH Rep #:[id number] : [...] take blood thinners. Tetanus Immunization: <5 years [facility] Medical History Parkinson's disease Right bundle branch [...] change from the prior exam. Reading Location: [facility] Cervical Spine CT 04/09/25 11:34 IMPRESSION: 1. No acute fracture. 2. Degenerative changes of the cervical spine as described. Reading Location: [facility] Discharge Plan Triage Chief Complaint: Head Injury [...] wound, new or worsening symptoms. Print Language: Armenian Disposition Disposition: Home, Self Care What to do if you have Problems For any increased pain, shortness of breath, bleeding, nausea or vomiting, chestpain, or any unexpected problems, contact your Primary Care Provider. Call [facility] ([phone]) or report to the closest Emergency Room. Call 911 if necessary. 04/09/25 1255 <Electronically signed by Surya Dumont MD> Cosigner Signature (if applicable): CC: Dr. Ron Cooley MD ~ Signed [facility] Work Phone: Evaluation note* Diagnosis Pre-op testing- Primary Preoperative examination, unspecified Abnormal EKG Nonspecific abnormal electrocardiogram (ECG) (EKG) Shortness of breath documented in this encounter [facility] Work Phone: Evaluation note* Diagnosis Abnormal electrocardiogram (ECG) (EKG) Shortness of breath Pre-op testing Preoperative examination, unspecified Abnormal EKG Nonspecific abnormal electrocardiogram (ECG) (EKG) documented in this encounter [facility] Work Phone: Evaluation note* Diagnosis Tremor, essential- Primary Essential and other specified forms of tremor documented in this encounter [facility] note* Diagnosis Tremor- Primary Abnormal involuntary movements documented in this encounter [facility] note* Diagnosis Tremor Abnormal involuntary movements Impaired mobility and activities of daily living Impairment of balance documented in this encounter [facility] note* Diagnosis Parkinson's disease (HCC)- Primary Paralysis agitans documented in this encounter [facility] noteNo assessment information availableWSumma Health [facility] Work Phone: evaluation note* Diagnosis Parkinsonism, unspecified Parkinsonism type (HCC)- Primary Essential tremor Essential and other specified forms of tremor Dysphagia, unspecified type Gait instability Abnormality of gait documented in this encounter [facility] note* Diagnosis Parkinsonism, unspecified Parkinsonism type (HCC)- Primary Dysphagia, oropharyngeal phase Dysarthria documented in this encounter [facility] note* Diagnosis Parkinson disease (HCC)- Primary Paralysis agitans documented in this encounter [facility] note* Diagnosis Gait instability- Primary Abnormality of gait Parkinsonism, unspecified Parkinsonism type (HCC) Dysphasia Other speech disturbance Oropharyngeal dysphagia Dysphagia, oropharyngeal phase Decreased activities of daily living (ADL) documented in this encounter [facility] note* Diagnosis Onset Date Resolution Status Essential (primary) hypertension chronic Paroxysmal atrial fibrillation [facility] Work Phone: evaluation note* Diagnosis Parkinsonism, unspecified Parkinsonism type (HCC)- Primary Depression, unspecified depression type Anxiety Anxiety state, unspecified Orthostatic lightheadedness Dizziness and giddiness Dysphagia, unspecified type documented in this encounter [facility] note* Diagnosis Parkinsonism, unspecified Parkinsonism type (HCC)- Primary Gait instability Abnormality of gait Leg weakness, bilateral Other musculoskeletal symptoms referable to limbs Imbalance Abnormality of gait documented in this encounter [facility] note* Diagnosis MELISSA (generalized anxiety disorder)- Primary Generalized anxiety disorder Depression, unspecified depression type Parkinsonism, unspecified Parkinsonism type (HCC) documented in this encounter [facility] note* Diagnosis Parkinsonism, unspecified Parkinsonism type (HCC)- Primary Gait instability Abnormality of gait Leg weakness, bilateral Other musculoskeletal symptoms referable to limbs Imbalance Abnormality of gait documented in this encounter [facility] note* Diagnosis Parkinsonism, unspecified Parkinsonism type (HCC)- Primary Orthostatic hypotension Anxiety Anxiety state, unspecified documented in this encounter [facility] note* Diagnosis Onset Date Resolution Status Parkinsons acute Essential (primary) hypertension chronic HLD (hyperlipidemia) chronic Paroxysmal atrial fibrillation [facility] Work Phone: Evaluation note* Diagnosis Onset Date Resolution Status Polyneuropathy acute Abnormality of gait and mobility chronic Dementia chronic Parkinson's disease chronic Essential (primary) hypertension chronic HLD (hyperlipidemia) chronic Paroxysmal atrial fibrillation chronic [facility] Work Phone: Evaluation note* Diagnosis Onset Date Resolution Status Abnormality of gait and mobility chronic Dementia chronic Parkinson's disease chronic Polyneuropathy chronic Fatigue noneactive [facility] Work Phone: Evaluation note* Diagnosis Onset Date Resolution Status Diplopia acute Right abducens nerve palsy a cute Abnormality of gait and mobility chronic Dementia chronic Parkinson's disease chronic Polyneuropathy chronic [facility] Work Phone: Evaluation note* Diagnosis Facial laceration, initial encounter- Primary Fall, initial encounter Open fracture of nasal bone, initial encounter [facility] Dis[facility] instructionsWSum[facility] Work Phone: Hospital Discharge instructions Additional Instructions [facility] boot [facility] Work Phone: Reason for referral (narrative)No reason for referral information availableK[facility] Work Phone: Reason for Referral Status Reason Specialty Diagnoses / Procedures Re ferred By Contact Referred To Contact Open Cardiology Diagnoses Pre-op testing Abnormal EKG Shortness of breath Procedures ECHO Pharmacological Stress Test Raeann Holland, CIGAR BRANDER - RIGHT OF WAY SUPERVISOR [address] [facility] [address] [place] [address] Specialty Diagnoses / Procedures Referred By Michel higginbotham Referred To Contact Neurology Diagnoses Tremor, essential Patricia Mcgowan MD [address] [place] [address] Barb Morton MD [address] [facility] [address] [place] [address] Referral ID Status Reason Start Date Expiration Date V isits Requested Visits Authorized [id number] Pending Review 09/27/2021 09/27/2022 1 1 Specialty Diagnoses / Procedures Referred By Contac t Referred To Contact Rehabilitation [place] [address] [place] [address] [place] [address] Referral ID Status Reason Start Date Expiration Date V isits Requested Visits Authorized [id number] Authorized 10/05/2021 10/05/2022 1 1 Specialty Diagnoses / Procedures Referred By Contac t Referred To Contact Radiology Diagnoses Tremor Procedures CT Head Or Brain Without Contrast Barb Morton MD [address] [place] [address] [place] [address] Referral ID Status Reason Start Date Expiration Date V isits Requested Visits Authorized [id number] New Request 10/05/2021 10/05/2022 1 1 Specialty Diagnoses / Procedures Referred By Contac t Referred To Contact Radiology Diagnoses Tremor Procedures NM Brain Datscan SPECT CT Single Area Single Day Barb Morton MD [address] [place] [address] [place] [address] Nuclear [address] [place] [id number] Referral ID Status Reason Start Date Expiration Date V isits Requested Visits Authorized [id number] Pending Review 10/05/2021 10/05/2022 4 4 Specialty Diagnoses / Procedures Referred By Contac t Referred To Contact Diagnoses Parkinsonism, unspecified Parkinsonism type (HCC) Procedures PROVIDER ORDERED FOLLOW UP OFFICE/OUTPATIENT [facility] 60-74 MINUTES Jaylyn Nieves MD [address] [place] [id number] Referral ID Status Reason Start Date Expiration Date Visits Requested Visits Authorized [id number] Authorized PCP Requested Referral 03/17/2022 06/15/2022 1 1 Specialty Diagnoses / Procedures Referred By Contac t Referred To Contact Neurology / NEUROLOGICAL TAOIST Diagnoses Parkinsonism, unspecified Parkinsonism type (HCC) Procedures CONSULT TO [facility] OFFICE/OUTPATIENT [facility] 60-74 MINUTES Jaylyn Nieves MD [address] [address] [facility] [address] [place] [address] Referral ID Status Reason Start Date Expiration Date Visits Requested Visits Authorized [id number] Authorized PCP Requested Referral 03/17/2022 03/17/2023 1 1 Specialty Diagnoses / Procedures Referred By Contac t Referred To Contact [facility] Diagnoses Parkinsonism, unspecified Parkinsonism type (HCC) Gait instability Procedures CONSULT TO PHYSICAL THERAPY PHYSICAL THERAPY EVALUATION HIGH COMPLEX 45 MINS Jaylyn Nieves MD [address] [address] Referral ID Status Reason Start Date Expiration Date Visits Requested Visits Authorized [id number] Authorized PCP Requested Referral Auto-Generate d Referral 03/29/2022 03/29/2023 99 99 Specialty Diagnoses / Procedures Referred By Contac t Referred To Contact [facility] Diagnoses Parkinsonism, unspecified Parkinsonism type (HCC) Gait instability Decreased activities of daily living (ADL) Procedures CONSULT TO ALTERATIONS SEWER OCCUPATIONAL THERAPY EVAL HIGH COMPLEX 60 MINS Jaylyn Nieves MD [address] [address] Referral ID Status Reason Start Date Expiration Date Visits Requested Visits Authorized [id number] Authorized PCP Requested Referral Auto-Generate d Referral 03/29/2022 03/29/2023 99 99 Specialty Diagnoses / Procedures Referred By Contac t Referred To Contact Diagnoses Parkinsonism, unspecified Parkinsonism type (HCC) Oropharyngeal dysphagia Procedures CONSULT TO SPEECH THERAPY Jaylyn Nieves MD [address] [address] Referral ID Status Reason Start Date Expiration Date Visits Requested Visits Authorized [id number] Authorized PCP Requested Referral 03/29/2022 06/27/2022 3 3 Referral ID Status Reason Start Date Expiration Date Visits Requested Visits Authorized [id number] Authorized PCP Requested Referral 08/04/2023 1 1 Specialty Diagnoses / Procedures Referred By Contac t Referred To Contact [facility] Diagnoses Parkinsonism, unspecified Parkinsonism type (HCC) Procedures CONSULT TO PHYSICAL THERAPY PHYSICAL THERAPY EVALUATION HIGH COMPLEX 45 MINS Jaylyn Nieves MD [address] [place] [address] [facility] [address] [place] [address] Referral ID Status Reason Start Date Expiration Date Visits Requested Visits Authorized [id number] Authorized PCP Requested Referral Auto-Generate d Referral 08/04/2022 08/04/2023 99 99 Specialty Diagnoses / Procedures Referred By Contac t Referred To Contact Diagnoses Parkinsonism, unspecified Parkinsonism type (HCC) Depression, unspecified depression type Procedures CONSULT TO PSYCHIATRY OFFICE/OUTPATIENT [facility] 60-74 MINUTES Jaylyn Nieves MD [address] [place] [address] Referral ID Status Reason Start Date Expiration Date Visits Requested Visits Authorized [id number] Pending Review PCP Requested Referral 08/04/2022 08/04/2023 1 1 Specialty Diagnoses / Procedures Referred By Contac t Referred To Contact Diagnoses Depression, unspecified depression type Procedures PROVIDER ORDERED FOLLOW UP OFFICE/OUTPATIENT [facility] 60-[place] [address] [place] [address] Referral ID Status Reason Start Date Expiration Date Visits Requested Visits Authorized [id number] Authorized PCP Requested Referral 11/28/2022 09/02/2023 1 1 Specialty Diagnoses / Procedures Referred By Contac t Referred To Contact [facility] Diagnoses Parkinsonism, unspecified Parkinsonism type (HCC) Procedures CONSULT TO ALTERATIONS SEWER OCCUPATIONAL THERAPY EVAL HIGH COMPLEX 60 MINS Leni Ruiz APRN.RIGHT OF WAY SUPERVISOR [address] [place] [address] [facility] [address] [place] [address] Referral ID Status Reason Start Date Expiration Date Visits Requested Visits Authorized [id number] Authorized PCP Requested Referral Auto-Generate d Referral 12/12/2022 12/12/2023 99 99 Specialty Diagnoses / Procedures Referred By Michel t Referred To Contact [facility] Diagnoses Parkinsonism, unspecified Parkinsonism type (HCC) Procedures CONSULT TO PHYSICAL THERAPY PHYSICAL THERAPY EVALUATION HIGH COMPLEX 45 MINS Leni Ruiz APRN.RIGHT OF WAY SUPERVISOR [address] [place] [address] [facility] [place] [address] [place] [address] Referral ID Status Reason Start Date Expiration Date Visits Requested Visits Authorized [id number] Authorized PCP Requested Referral Auto-Generate d Referral 12/12/2022 12/12/2023 99 99 Advance Directives No Advanced Directives Records FoundDocuments on File Type Date Recorded Patient Nuclear Reactor Technician Expl anation ACP-Advance Directive ACP-Power of Toe Trimmer Latest Code Status on File Code Status Date Activated Date Inactivated Comments Full Code 04/17/2018 6:13 AM 04/17/2018 1:26 PM Documents on File Type Date Recorded Patient Nuclear Reactor Technician Expl anation ACP-Advance Directive ACP-Power of Toe Trimmer Latest Code Status on File Code Status Date Activated Date Inactivated Comments Full Code 05/19/2021 6:48 AM Full Code 04/17/2018 6:13 AM 04/17/2018 1:26 PM Documents on File Type Date Recorded Patient Nuclear Reactor Technician Expl anation Advance Directives and Living Will Documents on File Type Date Recorded Patient Nuclear Reactor Technician Expl anation Advance Directives and Living Will Documents on File Type Date Recorded Patient Nuclear Reactor Technician Expl anation Advance Directives and Livin g Will 11/01/2021 10:44 AM Advance Directive Response Recorded Date/ Time Living Will Yes January 28, 2022 2:22am Power of Toe Trimmer Yes January 28 2:22am Advance Directive Response Recorded Date/ Time Name of Medical Power of Toe Trimmer BRENNEN GRIFFITH ( ) January 28, 2022 2:22am Living Will Yes January 28, 2022 2:22am Power of Toe Trimmer Yes January 28 2:22am Advance Directive Response Recorded Date/ Time Living Will Yes January 28, 2022 1:22am Power of Toe Trimmer Yes January 28 1:22am Advance Directive Response Recorded Date/ Time Name of Medical Power of Toe Trimmer February 11, 2023 12:56pm Living Will Yes February 11, 2023 12:56pm Power of Toe Trimmer Yes February 11 12:56pm Advance Directive Response Recorded Date/ Time Living Will Yes February 11, 2023 12:56pm Power of Toe Trimmer Yes February 11 12:56pm Advance Directive Response Recorded Date/ Time Living Will Yes February 11, 2023 11:56am Power of Toe Trimmer Yes February 11 11:56am Advance Directive Response Recorded Date/ Time Living Will Yes February 11, 2023 12:56pm Power of Toe Trimmer Yes February 11 12:56pm Living Will Yes October 12 12:40pm Power of Toe Trimmer Yes October 12, 2024 12:40pm Name of Medical Power of Toe Trimmer brennen griffith October 12, 2024 12:40pm Living Will Yes December 05 6:16pm Power of Toe Trimmer Yes December 05, 2024 6:16pm Name of Medical Power of Toe Trimmer BRENNEN GRIFFITH December 05, 2024 6:16pm Advance Directive Response Recorded Date/ Time Living Will Yes February 11, 2023 12:56pm Do you have a Healthcare Power of Toe Trimmer? Yes February 11, 2023 12:56pm Living Will Yes December 05 6:16pm Do you have a Healthcare Power of Toe Trimmer? Yes December 05, 2024 6:16pm Name of Medical Power of Toe Trimmer BRENNEN GRIFFITH December 05, 2024 6:16pm Living Will No February 14, 2025 9:21pm Do you have a Healthcare Power of Toe Trimmer? No February 14, 2025 9:21pm Advance Directive Response Recorded Date/ Time Living Will Yes February 11, 2023 12:56pm Do you have a Healthcare Power of Toe Trimmer? Yes February 11, 2023 12:56pm Living Will No February 14, 2025 9:21pm Do you have a Healthcare Power of Toe Trimmer? No February 14, 2025 9:21pm Advance Directive Response Recorded Date/ Time Living Will Yes February 11, 2023 12:56pm Do you have a Healthcare Power of Toe Trimmer? Yes February 11, 2023 12:56pm Living Will No February 14, 2025 9:21pm Do you have a Healthcare Power of Toe Trimmer? No February 14, 2025 9:21pm Do you have a Healthcare Power of Toe Trimmer? Yes April 09, 2025 11:28am Healthcare Agents on File Name Relationship Healthcare Agent Jimco p Communication Brennen Griffith Spouse First Alternate Health Care Agent Advance Directive Response Recorded Date/ Time Living Will No February 14, 2025 9:21pm Do you have a Healthcare Power of Toe Trimmer? No February 14, 2025 9:21pm Do you have a Healthcare Power of Toe Trimmer? Yes April 09, 2025 11:28am Do you have a Healthcare Power of Toe Trimmer? No May 11, 2025 5:51pm Summary Purpose Family History No Family History [...] head injury April 09, 2025 11:18 am Chief Complaint Admit Date EORDER- CXR January 21, 2025 10:3 1am [place] February 06, 2025 1:0 0pm head injury February 14, 2025 9:1 0pm 6 wk FU March 20, 2025 3:22pm Moderate persistent asthma, uncomplicate d March 24, 2025 6:38pm head injury April 09, 2025 11:18 am DYSPHAGIA, CVA. RX HERE May 07, 2025 12:30pm DYSPHAGIA, PARKINSONS DISEASE,Dysphonia May 09, 2025 12:48pm hypoglycemic May 11, 2025 5:47 pm Reason for Visit Admit Date Diplopia February 06, 2025 1:0 0pm Dysphagia [...] 20, 2025 3:22pm Chief Complaint Admit Date EORDER- CXR January 21, 2025 10:3 1am [place] February 06, 2025 1:0 0pm head injury February 14, 2025 9:1 0pm 6 wk FU March 20, 2025 3:22pm Moderate persistent asthma, uncomplicate d March 24, 2025 6:38pm head injury April 09, 2025 11:18 am DYSPHAGIA, PARKINSONS DISEASE,Dysphonia May 09, 2025 12:48pm hypoglycemic May 11, 2025 5:47 pm DYSPHAGIA, CVA. RX HERE May 14, 2025 12:30pm Chief Complaint Admit Date [place] February 06, 2025 1:0 0pm head injury February 14, 2025 9:1 0pm 6 wk FU March 20, 2025 3:22pm Moderate persistent asthma, uncomplicate d March 24, 2025 6:38pm head injury April 09, 2025 11:18 am DYSPHAGIA, PARKINSONS DISEASE,Dysphonia May 09, 2025 12:48pm hypoglycemic May 11, 2025 5:47 pm DYSPHAGIA, CVA. RX HERE May 14, 2025 12:30pm Additional Source Comments Source Comments (unrecognize d section and content) In the event this informatio n is protected by the Federal Confidentiality of Alcohol and Drug Abuse Patient Records regulations: The Federal rules restrict any use of the information to criminally investigate or prosecute any alcohol or drug abuse patient.[facility] HospitalIn the event this information is protected by the Federal Confidentiality of Alcohol and Drug Abuse Patient Records regulations: The Federal rules restrict any use of the information to criminally investigate or prosecute any alcohol or drug abuse patient.[facility] HospitalIn the event this information is protected by the Federal Confidentiality of Alcohol and Drug Abuse Patient Records regulations: The Federal rules restrict any use of the information to criminally investigate or prosecute any alcohol or drug abuse patient.[facility] HospitalIn the event this information is protected by the Federal Confidentiality of Alcohol and Drug Abuse Patient Records regulations: The Federal rules restrict any use of the information to criminally investigate or prosecute any alcohol or drug abuse patient.[facility] HospitalIn the event this information is protected by the Federal Confidentiality of Alcohol and Drug Abuse Patient Records regulations: The Federal rules restrict any use of the information to criminally investigate or prosecute any alcohol or drug abuse patient.[facility] HospitalIn the event this information is protected by the Federal Confidentiality of Alcohol and Drug Abuse Patient Records regulations: The Federal rules restrict any use of the information to criminally investigate or prosecute any alcohol or drug abuse patient.[facility] HospitalIn the event this information is protected by the Federal Confidentiality of Alcohol and Drug Abuse Patient Records regulations: The Federal rules restrict any use of the information to criminally investigate or prosecute any alcohol or drug abuse patient.[facility] HospitalIn the event this information is protected by the Federal Confidentiality of Alcohol and Drug Abuse Patient Records regulations: The Federal rules restrict any use of the information to criminally investigate or prosecute any alcohol or drug abuse patient.[facility] HospitalIn the event this information is protected by the Federal Confidentiality of Alcohol and Drug Abuse Patient Records regulations: The Federal rules restrict any use of the information to criminally investigate or prosecute any alcohol or drug abuse patient.[facility] HospitalIn the event this information is protected by the Federal Confidentiality of Alcohol and Drug Abuse Patient Records regulations: The Federal rules restrict any use of the information to criminally investigate or prosecute any alcohol or drug abuse patient.[facility] HospitalIn the event this information is protected by the Federal Confidentiality of Alcohol and Drug Abuse Patient Records regulations: The Federal rules restrict any use of the information to criminally investigate or prosecute any alcohol or drug abuse patient.[facility] HospitalIn the event this information is protected by the Federal Confidentiality of Alcohol and Drug Abuse Patient Records regulations: The Federal rules restrict any use of the information to criminally investigate or prosecute any alcohol or drug abuse patient.[facility] HospitalIn the event this information is protected by the Federal Confidentiality of Alcohol and Drug Abuse Patient Records regulations: The Federal rules restrict any use of the information to criminally investigate or prosecute any alcohol or drug abuse patient.[facility] HospitalIn the event this information is protected by the Federal Confidentiality of Alcohol and Drug Abuse Patient Records regulations: The Federal rules restrict any use of the information to criminally investigate or prosecute any alcohol or drug abuse patient.[facility] HospitalIn the event this information is protected by the Federal Confidentiality of Alcohol and Drug Abuse Patient Records regulations: The Federal rules restrict any use of the information to criminally investigate or prosecute any alcohol or drug abuse patient.[facility] HospitalIn the event this information is protected by the Federal Confidentiality of Alcohol and Drug Abuse Patient Records regulations: The Federal rules restrict any use of the information to criminally investigate or prosecute any alcohol or drug abuse patient.[facility] HospitalIn the event this information is protected by the Federal Confidentiality of Alcohol and Drug Abuse Patient Records regulations: The Federal rules restrict any use of the information to criminally investigate or prosecute any alcohol or drug abuse patient.[facility] HospitalIn the event this information is protected by the Federal Confidentiality of Alcohol and Drug Abuse Patient Records regulations: The Federal rules restrict any use of the information to criminally investigate or prosecute any alcohol or drug abuse patient.[facility] HospitalIn the event this information is protected by the Federal Confidentiality of Alcohol and Drug Abuse Patient Records regulations: The Federal rules restrict any use of the information to criminally investigate or prosecute any alcohol or drug abuse patient.[facility] HospitalIn the event this information is protected by the Federal Confidentiality of Alcohol and Drug Abuse Patient Records regulations: The Federal rules restrict any use of the information to criminally investigate or prosecute any alcohol or drug abuse patient.[facility] Reason for Visit (unrecogniz ed section and content) Reason Comments Parkinsonism, unspecified Parkinsonism t ype (HCC) Specialty Diagnoses / Procedures Referred By Contac t Referred To Contact Diagnoses Parkinsonism, unspecified Parkinsonism type (HCC) Procedures PROVIDER ORDERED FOLLOW UP OFFICE/OUTPATIENT NEW HIGH MDM 60-74 MINUTES Jaylyn Nieves MD [address] [place] [id number] Referral ID Status Reason Start Date Expiration Date V isits Requested Visits Authorized [id number] Closed PCP Requested Referral 11/03/2022 08/04/2023 1 1 Status Reason Specialty Diagnoses / Procedures Re ferred By Contact Referred To Contact Open Cardiology Diagnoses Pre-op testing Abnormal EKG Shortness of breath Procedures ECHO Pharmacological Stress Test Raeann Holland, CIGAR BRANDER - RIGHT OF WAY SUPERVISOR 1 [facility] [address] [place] [address] Reason Comments Consult Ref by: PATRICIA MCGOWAN 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,essential (HIFU interest - saw us on the website), Tremors Dx; ET approx 1 year Specialty Diagnoses / Procedures Referred By Michel higginbotham Referred To Contact Neurology Diagnoses Tremor, essential Patricia Mgcowan MD [address] [facility] [address] [place] [address] Barb Morton MD [address] [facility] [address] [place] [address] Referral ID Status Reason Start Date Expiration Date Visits Re quested Visits Authorized [id number] Closed 09/27/2021 09/27/2022 1 1 Reason Comments Physical Therapy Neuro Specialty Diagnoses / Procedures Referred By Michel higginbotham Referred To Contact Rehabilitation Diagnoses Tremor Barb Morton MD [address] [facility] [address] [place] [address] [facility] [address] [place] [address] Referral ID Status Reason Start Date Expiration Date V isits Requested Visits Authorized [id number] Authorized 10/05/2021 10/05/2022 1 199 Reason Onset Date Comments Medication Refill 11/05/2021 Reason Onset Date Comments Medication Refill 11/09/2021 Reason Comments Follow Up Parkinson's Reason Comments Upcoming Appointment Pre-rooming phone c all Reason Comments Speech Evaluation Specialty Diagnoses / Procedures Referred By Michel higginbotham Referred To Contact Speech-Language Pathologist / SPEECH THERAPY Diagnoses PD Clinic Procedures [facility] Jaylyn Nieves MD [address] [address] Amaya Deleon, CCC-FREIGHT HUSTLER [address] [place] [address] Referral ID Status Reason Start Date Expiration Date V isits Requested Visits Authorized [id number] Authorized 03/29/2022 06/27/2022 99 99 Reason Comments PT Eval Patient Education Specialty Diagnoses / Procedures Referred By Contac t Referred To Contact Physical Therapy / PHYSICAL THERAPY Diagnoses PD Clinic Procedures [facility] Jaylyn Nieves MD [address] [address] [place] Medel, PT, DPT [address] [place] [id number] Referral ID Status Reason Start Date Expiration Date V isits Requested Visits Authorized [id number] Authorized 03/29/2022 06/27/2022 99 99 Specialty Diagnoses / Procedures Referred By Contac t Referred To Contact Neurology / NEUROLOGICAL TAOIST Diagnoses Parkinsonism, unspecified Parkinsonism type (HCC) Procedures CONSULT TO [facility] OFFICE/OUTPATIENT [facility] MDM 60-74 MINUTES Jaylyn Nieves MD [address] [address] [facility] [address] [place] [address] Referral ID Status Reason Start Date Expiration Date V isits Requested Visits Authorized [id number] Closed PCP Requested Referral 03/17/2022 03/17/2023 1 1 Reason Onset Date Comments Refill Request 05/18/2022 Reason Comments Appointment Earlier appointment request d/t worsening symptoms Reason Comments Follow Up Referral ID Status Reason Start Date Expiration Date V isits Requested Visits Authorized [id number] Closed PCP Requested Referral 03/17/2022 06/15/2022 1 1 Reason Comments Physical Therapy Specialty Diagnoses / Procedures Referred By Contac t Referred To Contact [facility] Diagnoses Parkinsonism, unspecified Parkinsonism type (HCC) Procedures CONSULT TO PHYSICAL THERAPY PHYSICAL THERAPY EVALUATION HIGH COMPLEX 45 MINS Jaylyn Nieves MD [address] [facility] [address] [place] [address] [facility] [place] [address] [place] [address] Referral ID Status Reason Start Date Expiration Date Visits Requested Visits Authorized [id number] Authorized PCP Requested Referral Auto-Generate d Referral 08/04/2022 08/04/2023 99 99 Reason Comments New Patient Specialty Diagnoses / Procedures Referred By Contac t Referred To Contact Diagnoses Parkinsonism, unspecified Parkinsonism type (HCC) Depression, unspecified depression type Procedures CONSULT TO PSYCHIATRY OFFICE/OUTPATIENT NEW HIGH MDM 60-74 MINUTES Jaylyn Nieves MD [address] [address] Referral ID Status Reason Start Date Expiration Date Visits Requested Visits Authorized [id number] Pending Review PCP Requested Referral 08/04/2022 08/04/2023 [...] content) DATE CREATED AUTHOR 05/13/2021 [facility] DATE CREATED AUTHOR AUTHOR'S ORGANIZ ATION 05/20/2021 [facility] DATE CREATED AUTHOR AUTHOR'S ORGANIZ ATION 12/22/2021 [facility] DATE CREATED AUTHOR AUTHOR'S ORGANIZ ATION 02/18/2023 [facility] DATE CREATED AUTHOR AUTHOR'S ORGANIZ ATION 02/19/2023 [facility] DATE CREATED AUTHOR AUTHOR'S ORGANIZ ATION 04/05/2025 [facility] DATE CREATED AUTHOR AUTHOR'S ORGANIZ ATION 04/18/2025 [facility] DATE CREATED AUTHOR AUTHOR'S ORGANIZ ATION 06/04/2025 [facility] Scheduled Active and Recently Administ ered [...] % 100 mL IVPB 3,000 mg, Intravenous, OFFSET PRINTING OPERATOR TO O.R., 1 dose, On Mon05/19/21 at 0715, Administer within 1 hour prior to incision. Recommend to repeat in 3-4 hours after initial dose if still intra-op., Pre-op (day of surgery) 0715 (Due) famotidine (PEPCID) tablet 20 mg (COMPLETED) [...] (day of surgery) 0710 ([facility] Bag - [facility] ider: Asya Torre RN) PRN Medication Order [...] during administration. Secondary antiemetic therapy. For use same and For IV administration, dilute to 10ml [...] Cielo Valverde RN) lidocaine-EPINEPHrine (Xylocaine W/EPI) 1 %-1:520400 injection 10 mL (COMPLETED) 10 mL, Infiltration, [...] Care Teams (unrecognized sec tion and content) Rug Dyer Helper Relationship Specialty Start Date End Date Patricia Mcgowan MD [address] [facility] [address] [place] [address] PCP - General Family Medicine 10/28/21 Rug Dyer Helper Relationship Specialty Start Date End Date Patricia Mcgowan MD [address] [facility] [address] [place] [address] PCP - General Family Medicine 10/28/21 Rug Dyer Helper Relationship Specialty Start Date End Date Patricia Mcgowan MD [address] [facility] [address] [place] [address] PCP - General Family Medicine 10/28/21 Rug Dyer Helper Relationship Specialty Start Date End Date Patricia Mcgowan MD [address] [facility] [address] [place] [address] PCP - General Family Medicine 10/28/21 Rug Dyer Helper Relationship Specialty Start Date End Date Patricia Mcgowan MD [address] [facility] [address] [place] [address] PCP - General Family Medicine 10/28/21 Rug Dyer Helper Relationship Specialty Start Date End Date Patricia Mcgowan MD [address] [facility] [address] [place] [address] PCP - General Family Medicine 10/28/21 Rug Dyer Helper Relationship Specialty Start Date End Date Patricia Mcgowan MD [address] [facility] [address] [place] [address] PCP - General Family Medicine 10/28/21 Rug Dyer Helper Relationship Specialty Start Date End Date Ron Cooley [address] [place] [address] PCP - General Family Practice 03/17/22 Rug Dyer Helper Relationship Specialty Start Date End Date Ron Cooley [address] [place] [address] PCP - General Family Practice 03/17/22 Rug Dyer Helper Relationship Specialty Start Date End Date Ron Cooley [address] [place] [address] PCP - General Family Practice 03/17/22 Rug Dyer Helper Relationship Specialty Start Date End Date Ron Cooley [address] [place] [address] PCP - General Family Practice 03/17/22 Rug Dyer Helper Relationship Specialty Start Date End Date Ron Cooley [address] [place] [address] PCP - General Family Practice 03/17/22 Rug Dyer Helper Relationship Specialty Start Date End Date Ron Cooley [address] [place] [address] PCP - General Family Practice 03/17/22 Rug Dyer Helper Relationship Specialty Start Date End Date Ron Cooley [address] [place] [address] PCP - General Family Practice 03/17/22 Rug Dyer Helper Relationship Specialty Start Date End Date Ron Cooley [address] [place] [address] PCP - General Family Practice 03/17/22 Rug Dyer Helper Relationship Specialty Start Date End Date Ron Cooley [address] [place] [address] PCP - General Family Practice 03/17/22 Rug Dyer Helper Relationship Specialty Start Date End Date Ron Cooley [address] [place] [address] PCP - General Family Medicine 03/17/22 Rug Dyer Helper Relationship Specialty Start Date End Date Ron Cooley [address] [place] [address] PCP - General Family Medicine 03/17/22 Rug Dyer Helper Relationship Specialty Start Date End Date Ron Cooley [address] [place] [address] PCP - General Family Medicine 03/17/22 Erika May, CIGAR BRANDER.RIGHT OF WAY SUPERVISOR [address] [place] [address] Specialty Reading Intervention Teacher Neurology 09/07/22 Rug Dyer Helper Relationship Specialty Start Date End Date Ron Cooley [address] [facility] [address] [address] [place] [address] PCP - General Family Medicine 03/17/22 Erika May, CIGAR BRANDER.RIGHT OF WAY SUPERVISOR [address] [place] [address] Specialty Reading Intervention Teacher Neurology 09/07/22 Rug Dyer Helper Relationship Specialty Start Date End Date Ron Cooley [address] [facility] [address] [address] [place] [address] PCP - General Family Medicine 03/17/22 Erika May, CIGAR BRANDER.RIGHT OF WAY SUPERVISOR [address] [place] [address] Specialty Reading Intervention Teacher Neurology 09/07/22 Rug Dyer Helper Relationship Specialty Start Date End Date Ron Cooley [address] [facility] [address] [place] [address] PCP - General Family Medicine 03/17/22 Erika May, CIGAR BRANDER.RIGHT OF WAY SUPERVISOR [address] [place] [address] Specialty Reading Intervention Teacher Neurology 09/07/22 Tatiana Rodas, CIGAR BRANDER.RIGHT OF WAY SUPERVISOR [address] [place] [address] Specialty Reading Intervention Teacher Neurology 12/05/22 Rug Dyer Helper Relationship Specialty Start Date End Date Rno Cooley [address] [facility] [address] [place] [address] PCP - General Family Medicine 03/17/22 Erika May, CIGAR BRANDER.RIGHT OF WAY SUPERVISOR [address] [place] [address] Specialty Reading Intervention Teacher Neurology 09/07/22 Tatiana Rodas, CIGAR BRANDER.RIGHT OF WAY SUPERVISOR [address] [place] [address] Specialty Reading Intervention Teacher Neurology 12/05/22 Rug Dyer Helper Relationship Specialty Start Date End Date Ron Cooley [address] [facility] [address] [place] [address] PCP - General Family Medicine 03/17/22 Erika May, CIGAR BRANDER.RIGHT OF WAY SUPERVISOR [address] [place] [address] Specialty Reading Intervention Teacher Neurology 09/07/22 Tatiana Rodas, CIGAR BRANDER.RIGHT OF WAY SUPERVISOR [address] [place] [address] Specialty Reading Intervention Teacher Neurology 12/05/22 Team Status: Active Member Role [...] Dr. Natasha Gregory MD Attending Provider Active Rug Dyer Helper Relationship Specialty Start Date End Date RejiRon marcos [address] [facility] [address] [place], [place] [address] PCP - General Family Medicine 03/17/22 Erika May, CIGAR BRANDER.RIGHT OF WAY SUPERVISOR [address] [place] [address] Specialty Reading Intervention Teacher Neurology 09/07/22 Tatiana Rodas, CIGAR BRANDER.RIGHT OF WAY SUPERVISOR [address] [place] [address] Specialty Reading Intervention Teacher Neurology 12/05/22 Team Status: Inactive Member Role Status Dates Dr. Ron Cooley MD Primary Care Provider Active Dr. Osman Farooq MD Emergency Provider Active Rug Dyer Helper Relationship Specialty Start Date End Date Ron Cooley [address] [facility] [address] [place] [address] PCP - General Family Medicine 03/17/22 Erika May, CIGAR BRANDER.RIGHT OF WAY SUPERVISOR [address] [place] [address] Specialty Reading Intervention Teacher Neurology 09/07/22 Tatiana Rodas APRN.RIGHT OF WAY SUPERVISOR [address] [place] [address] Specialty Reading Intervention Teacher Neurology 12/05/22 Team Status: Inactive Member Role [...] Provider, Referr ing Provider Active Christel Bae ENGRAVER RUBBER ENGRAVER RUBBERLeroy Attending Provider Active Team Status: Inactive Member [...] 14, 2025 End: February 14, 2025 Dr. Remus Ungur , DO Emergency Provider Active S tart: February [...] April 09, 2025 End: April 09, 2025 Suyra Dumont MD Referring Provider Active Star t: April 09, 2025 End: April 09, 2025 Surya Dumont MD Emergency Provider Active Star t: April 09, 2025 End: April 09, 2025 Rug Dyer Helper Relationship Specialty Start Date End Date Ron Cooley MD [address] [facility] [address] [place] [address] PCP - General Family Medicine 04/13/25 Team Status: Inactive Member Role Status Dates Dr. Ron Cooley MD Primary Care Provider Active Start: April 09, 2025 End: April 09, 2025 Surya Dumont MD Attending Provider Active Star t: April 09, 2025 End: April 09, 2025 Surya Dumont MD Referring Provider Active Star t: April 09, 2025 End: April 09, 2025 Surya Dumont MD Emergency Provider Active Star t: April 09, 2025 End: April 09, 2025 Team Status: Active Member Role Status Dates Dr. Ron Cooley MD Primary Care Provider Active Start: May 07, 2025 Dr. Vick Santo MD Attending Provider Active Start: May 07, 2025 Dr. Vick Santo MD Referring Provider Active Start: May 07, 2025 Team Status: Active Member Role Status Dates Dr. Ron Cooley MD Primary Care Provider Active Start: May 09, 2025 Dr. Vick Santo MD Attending Provider Active Start: May 09, 2025 Dr. Vick Santo MD Referring Provider Active Start: May 09, 2025 Team Status: Inactive Member Role Status Dates Dr. Ron Cooley MD Primary Care Provider Active Start: May 11, 2025 End: May 11, 2025 Dr. Dano Minor MD Emergency Provider Active Sta rt: May 11, 2025 End: May 11, 2025 Team Status: Inactive Member Role Status Dates Dr. Ron Cooley MD Primary Care Provider Active Start: May 09, 2025 End: May 09, 2025 Dr. Vick Santo MD Attending Provider Active Start: May 09, 2025 End: May 09, 2025 Dr. Vick Santo MD Referring Provider Active Start: May 09, 2025 End: May 09, 2025 Team Status: Active Member Role Status Dates Dr. Ron Cooley MD Primary Care Provider Active Start: May 14, 2025 Dr. Vick Santo MD Attending Provider Active Start: May 14, 2025 Dr. Vick Santo MD Referring Provider Active Start: May 14, 2025 Team Status: Active Member Role/Relationship Status Dates Dr. Ron Cooley MD Primary Care Provider Active Team Status: Inactive Member Role/Relationship Status Dates Dr. Ron Cooley MD Primary Care Provider Active Start: January 21, 2025 End: January 21, 2025 Dr. Ron Cooley MD Attending Provider Active Start: January 21, 2025 End: January 21, 2025 Dr. Ron Cooley MD Referring Provider Active Start: January 21, 2025 End: January 21, 2025 Team Status: Inactive Member Role/Relationship Status Dates Dr. Ron Coolye MD Primary Care Provider Active Start: February 06, 2025 End: February 06, 2025 Dr. Ron Cooley MD Referring Provider Active Start: February 06, 2025 End: February 06, 2025 Dr. Vick Santo MD Attending Provider Active Start: February 06, 2025 End: February 06, 2025 Team Status: Inactive Member Role/Relationship Status Dates Dr. Ron Cooley MD Primary Care Provider Active Start: February 14, 2025 End: February 14, 2025 Dr. Joe Soto DO Attending Provider Active S tart: February 14, 2025 End: February 14, 2025 Dr. Joe Soto DO Emergency Provider Active S tart: February 14, 2025 End: February 14, 2025 Team Status: Inactive Member Role/Relationship Status Dates Dr. Ron Cooley MD Primary Care Provider Active Start: February 20, 2025 End: February 20, 2025 Dr. Natasha Gregory MD Attending Provider Active Start: February 20, 2025 End: February 20, 2025 Team Status: Inactive Member Role/Relationship Status Dates Dr. Ron oColey MD Primary Care Provider Active Start: March 03, 2025 End: March 03, 2025 Dr. Jose Perez MD Attending Provider Active Start: March 03, 2025 End: March 03, 2025 Team Status: Inactive Member Role/Relationship Status Dates Dr. Ron Cooley MD Primary Care Provider Active Start: March 20, 2025 End: March 20, 2025 Dr. Ron Cooley MD Referring Provider Active Start: March 20, 2025 End: March 20, 2025 Dr. Vick Santo MD Attending Provider Active Start: March 20, 2025 End: March 20, 2025 Team Status: Inactive Member Role/Relationship Status Dates Dr. Ron Cooley MD Primary Care Provider Active Start: March 24, 2025 End: March 24, 2025 Dr. Jose Perez MD Attending Provider Active Start: March 24, 2025 End: March 24, 2025 Dr. Jose Perez MD Referring Provider Active Start: March 24, 2025 End: March 24, 2025 Team Status: Inactive Member Role/Relationship Status Dates Dr. Ron Cooley MD Primary Care Provider Active Start: April 03, 2025 End: April 03, 2025 Dr. Ron Cooley MD Attending Provider Active Start: April 03, 2025 End: April 03, 2025 Dr. Ron Cooley MD Referring Provider Active Start: April 03, 2025 End: April 03, 2025 Team Status: Inactive Member Role/Relationship Status Dates Dr. Ron Cooley MD Primary Care Provider Active Start: April 09, 2025 End: April 09, 2025 Surya Dumont MD Attending Provider Active Star t: April 09, 2025 End: April 09, 2025 Surya Dumont MD Referring Provider Active Star t: April 09, 2025 End: April 09, 2025 Surya Dumont MD Emergency Provider Active Star t: April 09, 2025 End: April 09, 2025 Team Status: Inactive Member Role/Relationship Status Dates Dr. Ron Cooley MD Primary Care Provider Active Start: May 09, 2025 End: May 09, 2025 Dr. Vick Santo MD Attending Provider Active Start: May 09, 2025 End: May 09, 2025 Dr. Vick Santo MD Referring Provider Active Start: May 09, 2025 End: May 09, 2025 Team Status: Inactive Member Role/Relationship Status Dates Dr. Ron Cooley MD Primary Care Provider Active Start: May 11, 2025 End: May 11, 2025 Dr. Dano Minor MD Attending Provider Active Sta rt: May 11, 2025 End: May 11, 2025 Dr. Dano Minor MD Emergency Provider Active Sta rt: May 11, 2025 End: May 11, 2025 Team Status: Inactive Member Role/Relationship Status Dates Dr. Ron Cooley MD Primary Care Provider Active Start: May 14, 2025 End: May 14, 2025 Dr. Vick Santo MD Attending Provider Active Start: May 14, 2025 End: May 14, 2025 Dr. Vick Santo MD Referring Provider Active Start: May 14, 2025 End: May 14, 2025 Team Status: Inactive Member Role/Relationship Status Dates Dr. Ron Cooley MD Primary Care Provider Active Start: February 06, 2025 End: February 06, 2025 Dr. Ron Cooley MD Referring Provider Active Start: February 06, 2025 End: February 06, 2025 Dr. Vick Santo MD Attending Provider Active Start: February 06, 2025 End: February 06, 2025 Team Status: Inactive Member Role/Relationship Status Dates Dr. Ron Cooley MD Primary Care Provider Active Start: February 14, 2025 End: February 14, 2025 Dr. Joe Soto DO Attending Provider Active S tart: February 14, 2025 End: February 14, 2025 Dr. Joe Soto DO Emergency Provider Active S tart: February 14, 2025 End: February 14, 2025 Team Status: Inactive Member Role/Relationship Status Dates Dr. Ron Cooley MD Primary Care Provider Active Start: February 20, 2025 End: February 20, 2025 Dr. Natasha Gregory MD Attending Provider Active Start: February 20, 2025 End: February 20, 2025 Team Status: Inactive Member Role/Relationship Status Dates Dr. Ron Cooley MD Primary Care Provider Active Start: March 03, 2025 End: March 03, 2025 Dr. Jose Perez MD Attending Provider Active Start: March 03, 2025 End: March 03, 2025 Team Status: Inactive Member Role/Relationship Status Dates Dr. Ron Cooley MD Primary Care Provider Active Start: March 20, 2025 End: March 20, 2025 Dr. Ron Cooley MD Referring Provider Active Start: March 20, 2025 End: March 20, 2025 Dr. Vick Santo MD Attending Provider Active Start: March 20, 2025 End: March 20, 2025 Team Status: Inactive Member Role/Relationship Status Dates Dr. Ron Cooley MD Primary Care Provider Active Start: March 24, 2025 End: March 24, 2025 Dr. Jose Perez MD Attending Provider Active Start: March 24, 2025 End: March 24, 2025 Dr. Jose Perez MD Referring Provider Active Start: March 24, 2025 End: March 24, 2025 Team Status: Inactive Member Role/Relationship Status Dates Dr. Ron Cooley MD Primary Care Provider Active Start: April 03, 2025 End: April 03, 2025 Dr. Ron Cooley MD Attending Provider Active Start: April 03, 2025 End: April 03, 2025 Dr. Ron Cooley MD Referring Provider Active Start: April 03, 2025 End: April 03, 2025 Team Status: Inactive Member Role/Relationship Status Dates Dr. Ron Cooley MD Primary Care Provider Active Start: April 09, 2025 End: April 09, 2025 Surya Dumont MD Attending Provider Active Star t: April 09, 2025 End: April 09, 2025 Surya Dumont MD Referring Provider Active Star t: April 09, 2025 End: April 09, 2025 Surya Dumont MD Emergency Provider Active Star t: April 09, 2025 End: April 09, 2025 Team Status: Inactive Member Role/Relationship Status Dates Dr. Ron Cooley MD Primary Care Provider Active Start: May 09, 2025 End: May 09, 2025 Dr. Vick Santo MD Attending Provider Active Start: May 09, 2025 End: May 09, 2025 Dr. Vick Santo MD Referring Provider Active Start: May 09, 2025 End: May 09, 2025 Team Status: Inactive Member Role/Relationship Status Dates Dr. Ron Cooley MD Primary Care Provider Active Start: May 11, 2025 End: May 11, 2025 Dr. Dano Minor MD Attending Provider Active Sta rt: May 11, 2025 End: May 11, 2025 Dr. Dano Minor MD Emergency Provider Active Sta rt: May 11, 2025 End: May 11, 2025 Team Status: Inactive Member Role/Relationship Status Dates Dr. Ron Cooley MD Primary Care Provider Active Start: May 14, 2025 End: May 14, 2025 Dr. Vick Santo MD Attending Provider Active Start: May 14, 2025 End: May 14, 2025 Dr. Vick Santo MD Referring Provider Active Start: May 14, 2025 End: May 14, 2025 Team Status: Inactive Member Role/Relationship Status Dates Dr. Ron Cooley MD Primary Care Provider Active Start: May 26, 2025 End: May 26, 2025 Dr. Natasha Gregory MD Attending Provider Active Start: May 26, 2025 End: May 26, 2025 Dr. Natasha Gregory MD Referring Provider Active Start: May 26, 2025 End: May 26, 2025 Goals (unrecognized section and content) Goals may [...] BE BASED ON THE PRIMARY CLINICAL RECORDS. [employer] [facility]. provides no warranty or guarantee of the accuracy or completeness of information in this document.
--- NOTE | 2025-06-08 18:43 | RAD_ITS ---
PROCEDURE: CHEST 1 VIEW (PORTABLE) 06/08/2025 REASON FOR EXAM: SYNCOPE TECHNIQUE: Frontal view of the chest. COMPARISON: Chest radiograph on 01/21/2025 FINDINGS: Hardware: None Heart: Cardiac and mediastinal contours are stable. Lungs: Lung volumes are slightly low. No focal consolidation or significant pleural effusion. Flattening of the hemidiaphragms. Bones: Degenerative changes are identified within the thoracic spine. RAD/Chest 1 View (Portable) IMPRESSION: Low lung volumes, without definite evidence of an acute cardiopulmonary abnorma lity. Reading Location: [id number]
[2025-06-08 19:57] VITALS: BP 145/79; BP 151/76; BP 155/88; PULSE 98; PULSE 99
[2025-06-08 20:02] VITALS: BP 155/88; PULSE 97
[2025-06-08 20:27] LABS: Anion Gap 12 (5-15); BUN 22 mg/dL (4-19); BUN/Creat Ratio 26.0 RATIO (10-20); Calcium,Total 9.0 mg/dL (7.6-11.0); Carbon Dioxide 24.5 mmol/L (21.0-32.0); Chloride 103 mmol/L (98-108); Estimated Creatinine Clearance 87.49 ml/min (50-250); Glucose 224 mg/dL (70-99); Potassium 4.0 mmol/L (3.3-5.1); Troponin T High Sensitivity 17 ng/L (<=22)
[2025-06-08 20:58] LABS: Color, Urine Yellow (Yellow); Glucose, Dipstick 50 mg/dl (Normal); Ketone-Dipstick 5 mg/dl (Negative); Leukocyte Esterase-Dipstick Negative /ul (Negative); Nitrite-Dipstick Negative (Negative); Occult Blood-Urine 10 /ul (Negative); Protein-Dipstick 15 mg/dl (Negative); Specific Gravity, Urine 1.020 (1.002-1.030); Urine Bilirubin Dipstick Negative (Negative)
--- NOTE | 2025-06-08 21:10 | PCM.HP.STD ---
[facility] - General General Date of Admission: 06/08/25 Date of Service: 06/08/25 Chief Complaint: Syncope with Collapse. HPI Narrative KEVIN GRIFFITH, is a 79 M with a past medical history of essential hypertension; on propranolol, hyperlipidemia; pravastatin, obesity (class II); with BMI of 35.9 this admission, former tobacco abuse, DM-2; of unknown control on insulin glargine 60U sq daily, insulin aspart SSI and metformin, diabetic neuropathy, paroxysmal atrial fibrillation; not on anticoagulation, history of RBBB, Parkinson's disease; on carbidopa-levodopa QID plus ropinirole BID, history of dementia, depression; on doxepin, BPH; on finasteride and alfuzosin and OA; with history of Left TKR plus spinal fusion with subsequent chronic back pain on hydrocodone-acetaminophen prn QID who presents to [facility] ER complaining of syncope with collapse. Mr. Flower reports his symptoms began while he was in his rollator at his extended care facility when he began to feel lightheaded and the next thing he remembers is waking up on the floor. He also admits to associated headache with posterior scalp hematoma with persistent lethargy. He denies associated focal neurologic deficits, paresthesias, neck pain, chest pain, palpitations, heart racing, lower extremity edema, shortness of breath, abdominal pain, nausea, vomiting, diarrhea, constipation, dysuria, hematuria or rash. In the ER he was noted to have a head CT without contrast that revealed no acute intracranial abnormality with small Left posterior scalp hematoma in addition to ethmoid and maxillary sinus disease consistent with Acute Sinusitis in addition to CT scan of the C-spine which revealed no acute osseous abnormality of the cervical spine with multilevel degenerative changes and a CXR that revealed low lung volumes without definite evidence of an acute cardiopulmonary abnormality. He was then diagnosed with Syncope and Collapse in the setting of chronic Parkinson's disease suspected to be due at least in part to Acute Sinusitis in addition to Dehydration evidenced by BUN/creatinine ratio of 26.1 present on admission and he was then admitted to the PCU under observation status for ongoing care for stay that is expected to be less than 2 midnights. [facility] Medical History Parkinson's disease Right bundle branch block (RBBB) Obesity Type 2 diabetes mellitus Essential (primary) hypertension Cataract Back problem Arthritis HLD (hyperlipidemia) Paroxysmal atrial fibrillation Home Medications ?Medication ?Instructions ?Recorded ?Last Taken ?Type pravastatin 80 mg tablet 80 mg PO QDAY cholesterol 04/06/18 Unknown History fluticasone fur. 200 mcg-umeclid 1 inh inhalation DAILY SOB 04/12/22 Unknown History 62.5 mcg-vilant 25 mcg inhalat.powder (Trelegy Ellipta) pantoprazole 40 mg tablet,delayed 40 mg PO DAILY acid reflux 04/12/22 Unknown History release finasteride 5 mg tablet 5 mg PO DAILY urine flow 04/11/23 Unknown History alfuzosin 10 mg tablet,extended 10 mg PO DAILY urinary retention 04/12/23 Unknown History release 24 hr cholecalciferol (vitamin D3) 25 4,000 unit PO DAILY supplement 04/12/23 Unknown History mcg (1,000 unit) capsule insulin aspart U-100 100 unit/mL See Rx Instructions .Route 04/12/23 Unknown History subcutaneous solution (Novolog .COMPLEX diabetes U-100 Insulin aspart) metformin 750 mg tablet,extended 750 mg PO QHS diabetes 04/12/23 Unknown History release 24 hr insulin glargine U-300 conc 300 54 unit subcut DAILY diabetes 06/27/24 Unknown History unit/mL (3 mL) subcutaneous pen (Toujeo Max U-300 SoloStar) ropinirole 2 mg tablet 2 mg PO TID parkinson #270 tabs 03/20/25 Unknown Rx doxepin 25 mg capsule 25 mg PO QHS nerve pain #90 caps 03/31/25 Unknown Rx albuterol sulfate 90 mcg/actuation 2 inh inhalation Q6H PRN shortness 06/08/25 Unknown History aerosol inhaler of breath or wheezing aspirin 81 mg tablet,delayed 81 mg PO QHS heart health 06/08/25 Unknown History release (Adult Aspirin Regimen) budesonide 1 mg/2 mL suspension 1 mg inhalation Q6H SOB 06/08/25 Unknown History for nebulization (Pulmicort) carbidopa 25 mg-levodopa 100 mg 2 tab PO 4X/DAY parkinsons 06/08/25 Unknown History tablet propranolol 60 mg capsule,24 60 mg PO QHS blood pressure 06/08/25 Unknown History hr,extended release Allergy/AdvReac Type Severity Reaction Status Date / Time metoclopramide (From Reglan) Allergy Severe HYPER Verified 06/08/25 18:03 Family History Father Leukemia Surgical History History of total left knee replacement (TKR) History of left tennis elbow Hx of spinal fusion History of skin cancer Social History household members: spouse housing: house Smoking Status: Former smoker alcohol intake: never substance use type: does not use ROS ROS Narrative Review of Systems: Constitutional: Patient admits to lethargy but he denies fever or chills. Eyes: Patient denies changes in vision or discharge from eyes. ENT: Patient denies runny nose, sore throat or ear pain. Resp: Patient denies shortness of breath or cough. CV: Patient denies admits to syncopal event with LOC as per HPI. He denies chest pain, palpitations, heart racing or lower extremity edema. GI: Patient denies abdominal pain, nausea, vomiting, diarrhea or constipation. : Patient denies dysuria, hematuria urinary frequency. MSK: Patient denies arthralgias or myalgias. Skin: Patient has Left posterior scalp hematoma as per HPI. He denies rash. Psych: Patient denies symptoms of uncontrolled depression or anxiety. Neuro: Patient admits to headache but he denies paresthesias or focal neurologic deficits. Allergy: Patient denies lip swelling, tongue swelling or urticaria. Hematology: Patient denies easy bleeding or easy bruisability. Endocrinology: Patient denies polyuria, polydipsia, polyphagia or heat/cold intolerance. 14 point ROS otherwise negative except for positives noted above in HPI. Vital Signs Vital Signs Vital Signs: 06/08/25 18:03 06/08/25 18:06 06/08/25 19:57 Temperature 98.3 F Temperature Source Oral Pulse Rate 95 Pulse Rate [Lying] 99 Pulse Rate [Sitting (for 1 minute prior to obtaining)] 98 Pulse Rate [Standing (for 1 minute prior to obtaining)] 99 Respiratory Rate 24 H Respiratory Effort Normal Respiratory Depth Normal Respiratory Pattern Normal Blood Pressure 163/69 H Blood Pressure [Lying] 151/76 H Blood Pressure [Sitting (for 1 minute prior to obtaining)] 145/79 H Blood Pressure [Standing (for 1 minute prior to obtaining)] 155/88 H Blood Pressure Mean 100 Blood Pressure Mean [Lying] 101 Blood Pressure Mean [Sitting (for 1 minute prior to obtaining)] 101 Blood Pressure Mean [Standing (for 1 minute prior to obtaining)] 110 Pulse Ox 94 Oxygen Delivery Method Room Air Room Air 06/08/25 20:02 Temperature Temperature Source Pulse Rate 97 Pulse Rate [Lying] Pulse Rate [Sitting (for 1 minute prior to obtaining)] Pulse Rate [Standing (for 1 minute prior to obtaining)] Respiratory Rate Respiratory Effort Respiratory Depth Respiratory Pattern Blood Pressure 155/88 H Blood Pressure [Lying] Blood Pressure [Sitting (for 1 minute prior to obtaining)] Blood Pressure [Standing (for 1 minute prior to obtaining)] Blood Pressure Mean 110 Blood Pressure Mean [Lying] Blood Pressure Mean [Sitting (for 1 minute prior to obtaining)] Blood Pressure Mean [Standing (for 1 minute prior to obtaining)] Pulse Ox Oxygen Delivery Method Weight Weight: 250 lb 7.122 oz Body Mass Index (BMI) 35.9 Physical Exam Const alert, oriented x3 and no apparent distress Constitutional Narrative: Obese with nontoxic appearance. General Appearance: cooperative HEENT normocephalic, hearing grossly normal bilaterally and moist oral mucous membranes HEENT Narrative: Patient has Left posterior occiput hematoma with some superficial abrasions. Eyes PERRL, EOMs intact bilaterally and conjunctivae normal Neck no lymphadenopathy, supple and no JVD Resp normal respiratory effort, no retractions, no use of accessory muscles and clear to auscultation bilaterally Cardio regular rate and regular rhythm GI normal to inspection, nondistended, normoactive bowel sounds, soft to palpation, non-tender and non-distended GI Narrative: Obese. Extremity Extremity Narrative: Superficial abrasion of the Right knee which patient states was present prior to her fall today. No rash or edema noted. Skin Skin Narrative: Superficial abrasion of the Right knee which patient states was present prior to her fall today. No rash or edema noted. Neuro oriented x3, CN's II-XII intact bilaterally, moves all extremities and no focal motor deficits Neuro Narrative: Patient has Parkinson's tremor. Sensorium / Orientation: awake, alert, oriented to person, oriented to place and oriented to time Speech: speech normal Psych affect normal Results Medical Records Data Attestation: I reviewed the patient's medical records Lab / Micro Data Attestation: I reviewed the patient's lab results. 06/08/25 18:17 06/08/25 19:25 Labs: Laboratory Results - last 24 hr 06/08/25 18:17: WBC 9.2, RBC 4.67, Hgb 14.4, Hct 41.6, MCV 89.1, MCH 30.8, MCHC 34.6, RDW Std Deviation 42.2, RDW Coeff of Nori 13.2, Plt Count 261, MPV 10.4, Immature Gran % (Auto) 0.800, Neut % (Auto) 51.9, Lymph % (Auto) 36.0, Howell % (Auto) 8.5, Eos % (Auto) 1.9, Baso % (Auto) 0.9, Absolute Neuts (auto) 4.8, Absolute Lymphs (auto) 3.30, Nucleated RBC % 0, Sodium Cancelled, Potassium Cancelled, Chloride Cancelled, Carbon Dioxide Cancelled, Anion Gap Cancelled, BUN Cancelled, Creatinine Cancelled, Estim Creat Clear Calc Cancelled, Est GFR (MDRD) Non-Af Cancelled, BUN/Creatinine Ratio Cancelled, Glucose Cancelled, Calcium Cancelled, Troponin T High Sens Cancelled 06/08/25 19:25: Sodium 139, Potassium 4.0, Chloride 103, Carbon Dioxide 24.5, Anion Gap 12, BUN 22 H, Creatinine 0.85, Estim Creat Clear Calc 87.49, Est GFR (MDRD) Non-Af 88, BUN/Creatinine Ratio 26.0 H, Glucose 224 H, Calcium 9.0, Troponin T High Sens 17 06/08/25 20:41: Urine Color Yellow, Urine Clarity Clear, Urine pH 6.0, Ur Specific [place] 1.020, Urine Protein 15 H, Urine Glucose (UA) 50 H, Urine Ketones 5 H, Urine Occult Blood 10 H, Urine Nitrite Negative, Urine Bilirubin Negative, Urine Urobilinogen 1 H, Ur Leukocyte Esterase Negative Imaging Radiology Impression Brain CT 06/08/25 18:16 IMPRESSION: 1. No acute intracranial abnormality. Small left posterior scalp hematoma. 2. Ethmoid and maxillary sinus disease, correlate for clinical evidence of acute sinusitis. Reading Location: [facility] Cervical Spine CT 06/08/25 18:16 IMPRESSION: No acute osseous abnormality of the cervical spine. Multilevel degenerative changes. Reading Location: [id number] Chest X-Ray 06/08/25 18:43 IMPRESSION: Low lung volumes, without definite evidence of an acute cardiopulmonary abnormality. Reading Location: [facility] Assessment & Plan Assessment/Plan (1) Syncope and collapse: (2) History of Parkinson's disease: (3) Acute sinusitis: QUALIFIERS: Recurrence: not specified as recurrent Sinusitis location: unspecified location Qualified Code(s): J01.90 - Acute sinusitis, unspecified (4) Dehydration: (5) Obesity (BMI 30-39.9): (6) History of dementia: PLAN: Plan 1. Syncope and Collapse with subsequent Left scalp Hematoma and Lethargy in the setting of known Parkinson's disease - Admit to PCU under observation status. Serialize troponin. Check echocardiogram to evaluate LVEF. Check carotid Doppler to evaluate for stenosis. Continue current Parkinson's regimen as previous. Finally, we will consult PT/OT and Case Management see this patient on rounds in the a.m. for further recommendations with help appreciated in advance. 2. CT without contrast that revealed no acute intracranial abnormality with small Left posterior scalp hematoma in addition to ethmoid and maxillary sinus disease consistent with Acute Sinusitis likely contributing to #1 - Start empiric IV ceftriaxone and then transition to oral antibiotics at time of discharge. Give acetaminophen as needed for [id number] (level 1-5/10) pain or fever. 3. Dehydration evidenced by BUN/creatinine ratio of 26.1 present on admission complicating #1 & #2 - Gently volume resuscitate and recheck renal indices in AM to follow trend. 4. Obesity (class II); with BMI of 35.9 this admission adding to the burden of disease outlined from #1 - #3 - Weight loss was recommended. Check TSH. This complicates his case may hamper recovery. 5. History of Dementia adding to the medical complexity of #1 - #4 - Check TSH, B12, folate, JUAN and UDS to evaluate for potential reversible causes of confusion. 6. OA; with history of Left TKR plus spinal fusion with subsequent chronic back pain on hydrocodone-acetaminophen prn QID - Give oxycodone-acetaminophen prn for severe (level 6-10/10) pain. 7. Essential hypertension; on propranolol - Maintain current therapy plus with blood pressure of 155/88 mmHg and pulse of 97 bpm. Give hydralazine IV as needed for systolic blood pressure greater than 160 mmHg. 8. DM-2; of unknown control on insulin glargine 60U sq daily, insulin aspart SSI and metformin plus diabetic neuropathy - ADA diet. FSBS q. AC/HS plus SSI. Continue insulin glargine at 40U daily to minimize risk of iatrogenic hypoglycemia. Check hemoglobin A1c to objectively evaluate quality of diabetic control. 9. Hyperlipidemia; pravastatin - Resume statin and check Lipid Profile. 10. Former tobacco abuse - Noted. 11. Paroxysmal atrial fibrillation; not on anticoagulation - Patient currently in NSR. Due to his falls he is considered a poor candidate for anticoagulation. 12. History of RBBB - Noted. 13. Depression; on doxepin - Continue doxepin as previous. 14. BPH; on finasteride and alfuzosin - Current therapy to be maintained as before. 15. DVT prophylaxis - Heparin 5,000U sq BID plus SCD's. Total time: Approximately (but not less than) 85 minutes. Charges/Coding Visit Charges OBSV E&M: 17387 Observ/hosp same date L3
--- OUTSIDE RECORDS SUMMARY | 2025-06-08 21:31 | XMS RPT_ITS | CCD ---
Author Organization [facility] Inform ion Partnership [facility] Care Team Providers Care Dryland Farmer Name Role Phone Emigdio Crump (Historic) Primary Care Prov ider Patricia Mcgowan Primary Care Provider Unavailable Primary Care Provider Daniel Mcgowan MD, Patricia Ramon Primary Care Provider BARB MORTON Attending Unavailab le JOLLIFF, PATRICIA RAMON Primary Care Unavailable SELENEBARB TUBBS Referring Unavailab le SELENE, BARB MAS Attending Unavailab le JOLLIFF, PATRICIA TRISTEN Primary Care Unavailable SELENEBARB Admitting Unavailab le JOLLIFF, PATRICIA [facility] Primary Care Unavailable SELENE, BARB MAS Attending Unavailab le SELENEBARB Referring Unavailab le JOLLIFFPATRICIA Referring Unavailable SELENE, BARB MAS Admitting Unavailab le SELENE, BARB MAS Attending Unavailab le SELENEBARB Referring Unavailab le JOLLIFF, PATRICIA TRISTEN Primary Care Unavailable SELENEBARB Admitting Unavailab SARAH Peace Attending Unavailable SELENEBARB Admitting Unavailab HARPAL Brody Attending Unavailable JOLLRADHA, PATRICIA [facility] Primary Care Unavailable SELENE, BARB MAS Referring Unavailab le SELENE, BARB MAS Attending Unavailab le JOLLIFF, PATRICIA TRISTEN Primary Care Unavailable SELENEBARB Referring Unavailab le JOLLIFF, PATRICIA [facility] Primary Care Unavailable SELENE, BARB MAS Attending Unavailab le SELENE, BARB MAS Referring Unavailab le JOLLIFF, PATRICIA [facility] Primary Care Unavailable JASPREET QURESHI Attending Unavailable Ron Cooley Mchenry Primary Care Provider Dr. Patricia Mcgowan Referring Provider Dr. Vladimir Sears Attending Provider Dr. Ron Cooley Primary Care Provider [phone] Dr. Silverio Amin Attending Provider Ron Cooley Mchenry Primary Care Provider [phone] Ron Cooley erma Primary Care Provider Ron Cooley Mchenry Primary Care Provider [phone] Lalo GINGER FARMER.CAR REPAIRMAN, Erika K Unavailable [phone] Ron Cooley Mchenry Primary Care Provider [phone] Lalo GINGER FARMER.CAR REPAIRMAN, Erika K Unavailable GINGER FARMER.CAR REPAIRMAN, Tatiana Unavailable PATRICIA MCGOWAN Primary Care Unavailable LIZBETH, JAYLYN Attending Unavailable LENI RUIZ Attending Unavailable LIZBETH, JAYLYN Referring Unavailable [facility] Primary Care Unavailabl e LIZBETH, JAYLYN Referring Unavailable ALEIDA RAMIREZ Attending Unavailable [facility] Primary Care Unavailabl e LIZBETH, JAYLYN Attending Unavailable [facility] Primary Care Unavailabl e LIZBETH, JAYLYN Attending Unavailable LIZBETH, JAYLYN Referring Unavailable [facility] Primary Care Unavailabl e [facility] Primary Care Unavailabl e MAINE MEDEL Attending Unavailable LIZBETH, JAYLYN Referring Unavailable [facility] Primary Care Unavailabl e KORI RYDER Attending Unavailable LIZBETH, JAYLYN Referring Unavailable [facility] Primary Care Unavailabl e KORI RYDER Attending Unavailable LIZBETH, JAYLYN Referring Unavailable LIZBETH, JAYLYN Referring Unavailable [facility] Primary Care Unavailabl e BEBB KORI Attending Unavailable BEKORI WEEKS Attending Unavailable LIZBETH, JAYLYN Referring Unavailable [facility] Primary Care Unavailabl e [facility] Primary Care Unavailabl e LIZBETH, JAYLYN Referring Unavailable [facility] Primary Care JAYLYN Gonsalves Referring Unavailable [...] Provider Dr. Ron Cooley MD Referring Provider [phone] Dr. Estuardo Mccormack DO Attending Provider Easton MONTEJO, Dr. Marte Emergency Provider Chet GARZA, Dr. Hickman Attending Provider Lenora GARZA, Dr. Ron Deleon Primary Care Provider Dr. Joe Soto DO Emergency Provider [phone] Charles MONTEJO, Dr. Diaz Attending Provider [phone] Lenora GARZA, Dr. Ron Deleon Primary Care Provider Colt GARZA, Dr. Kaur Attending Provider Chet [...] Provider Dr. Ron Cooley MD Referring Provider [phone] Chet GARZA, Dr. Hickman Attending Provider Surya Dumont MD Attending Provider Chet GARZA, Dr. Hickman Referring Provider Iván GARZA, Dr. Matson Emergency Provider Chet GARZA, Dr. Hickman Referring Provider [phone] Iván GARZA, Dr. Matson Attending Provider Lenora GARZA, Dr. Ron Deleon Primary Care Provider [phone] Lenora GARZA, Dr. Ron Deleon Referring Provider Lenora GARZA, Dr. Ron Deleon Attending Provider [phone] Colt GARZA, Dr. Kaur Referring Provider Whitley [...] Propensity to adverse reactions to substance 05-05-20 [facility] (12 sources) Metoclopramide; Translations: [METOCLOPRAMIDE HCL] Drug Allergy 10-05-20 [facility] (20 sources) Metoclopramide; Translations: [METOCLOPRAMIDE] Drug Allergy 08-25-20 Mental Status Change, Other [facility] Work Phone: Comment on above: anxiety (1 source) Metoclopramide Drug Allergy 05-11-20 [facility] Repository Medications Current Medications Medication Drug [...] HYDROcodone-acetaminophen (N ORCO) 5-325 MG per tablet [id number] actuat albuterol 0.09 mg/actuat metered dose [...] take 1 puff(s) by inhalation once daily ykosronbwgs-rnkpiioie-nmwjbpuq (Trelegy Ellipta) 100-62.5-25 mcg DsDv Inhale 1 puff daily . 0 Active Fluticasone-Umec lidin-Vilanter (20 sources) Sta rt: Mcffskiqduk-Xcgfdyvgl-Gabjtr er (Trelegy Ellipta) 200-62.5-25 mcg blister with [...] on above: Take 2 tablets by mo [facility] three times daily. cephalexin 500 mg oral [...] on above: Take 1 capsule by [facility] once daily. EPINEPHrine 0.01 mg/ml / [...] famotidine (PEPCID) tablet 2 0 mg fluticasone pcitjua-qnwjwyswevee-kewjnpodgr (TRELEGY ELLIPTA) 200-62.5-25 mcg powder inhaler (12 sources) take 1 puff(s) by inhalation once daily fluticasone hbzxdbv-ktdhdwczagap-kwdgfbleli (TRELEGY ELLIPTA) 200-62.5-25 mcg powder inhaler Inhale [...] sources) Anticholinergic Start: 04-06-2018 End: 04-11-2019 Ipratropium [place] 0.03 % spray,non-aerosol Discontinued 2 NMA INTRANASAL 2 to 3 times per day as needed April 06, 2018 12:00am April 11, 2019 11:44am Start: 04-06-2018 End: 04-11-2019 Ipratropium [place] Disconti nued 2 SPRAY INTRANASAL 2 to [...] 05-28-2025 Fol.,Hemolysate 498.0 ng/mL Normal Not Estab. [facility] Comment on above: Order Comment: LUPE Deleon SEND RESULTS OF B12 AND FOLATES TO Performed By: #### L 501.9985, L500.2500, L501.4405, L3100.1725, L503.0106, L501.4100 #### [facility] Laboratory [facility] [address] [place], [place], [id number] Folate, RBC 1087 ng/mL Normal >498 [facility] Comment on above: Order Comment: LUPE Deleon SEND RESULTS OF B12 AND FOLATES TO Result Comment: Perf ormed at: - Lab[address] [id number] Control Panel Builder: Vj Garcia PhD, Phone: [phone] Performed By: #### L 501.9985, L500.2500, L501.4405, L3100.1725, L503.0106, L501.4100 #### [facility] Laboratory [address] [place], [place], [id number] Hematocrit (Bld) [Volume fraction] 45.8 % Normal 37.5-51.0 [facility] Comment on above: Order Comment: LUPE Deleon SEND RESULTS OF B12 AND FOLATES TO Performed By: #### L 501.9985, L500.2500, L501.4405, L3100.1725, L503.0106, L501.4100 #### [facility] Laboratory [address] [place], [address] AST(SGOT)on 05-26-2025 AST [Catalytic activity/Vol] 14 U/L Normal <=37 [facility] Comment on above: Order Comment: LUPE Deleon SEND RESULTS OF B12 AND FOLATES TO Performed By: #### L 501.9985, L500.2500, L501.4405, L3100.1725, L503.0106, L501.4100 #### [facility] [address] [place], [address] Alanine Aminotransferas (SGP T)on 05-26-2025 ALT [Catalytic activity/Vol] 6 U/L Normal <=46 [facility] Comment on above: Order Comment: LUPE Deleon SEND RESULTS OF B12 AND FOLATES TO Performed By: #### L 501.9985, L500.2500, L501.4405, L3100.1725, L503.0106, L501.4100 #### [facility] Laboratory [address] [place], [address] Anion gap in Serum or Plasma Ordered By: Natasha Gregory on 05-26-2025 Anion gap [Moles/Vol] 12 mmol/L - [facility] BUN/creatinine ratioOrdered By: Natasha Gregory on 05-26-2025 Urea nitrogen/Creatinine [Mass ratio] 19.8 mg/mg - [facility] Basic Metabolic Profile (BMP )on 05-26-2025 BUN/CRE 19.8 RATIO Normal 09-08 [facility] Comment on above: Order Comment: LUPE Deleon SEND RESULTS OF B12 AND FOLATES TO Performed By: #### L 501.9985, L500.2500, L501.4405, L3100.1725, L503.0106, L501.4100 #### [facility] [address] [place], [address] Calcium [Mass/Vol] 9.2 mg/dL Normal 7.6-11.0 [facility] Comment on above: Order Comment: LUPE Deleon SEND RESULTS OF B12 AND FOLATES TO Performed By: #### L 501.9985, L500.2500, L501.4405, L3100.1725, L503.0106, L501.4100 #### [facility] [address] [place], [address] Chloride [Moles/Vol] 104 mmol/L Normal 98-108 [facility] Comment on above: Order Comment: LUPE Deleon SEND RESULTS OF B12 AND FOLATES TO Performed By: #### L 501.9985, L500.2500, L501.4405, L3100.1725, L503.0106, L501.4100 #### [facility] [address] [place], [address] CO2 [Moles/Vol] 25.8 mmol/L Normal 21.0-32.0 [facility] Comment on above: Order Comment: LUPE Deleon SEND RESULTS OF B12 AND FOLATES TO Performed By: #### L 501.9985, L500.2500, L501.4405, L3100.1725, L503.0106, L501.4100 #### [facility] [address] [place], [address] Creatinine [Mass/Vol] 0.91 mg/dL Normal 0.70-1.20 [facility] Comment on above: Order Comment: [facility] S[facility] RESULTS OF B12 AND FOLATES TO Performed By: #### L 501.9985, L500.2500, L501.4405, L3100.1725, L503.0106, L501.4100 #### [facility] [address] [place], [address] GAP 12 Normal 5-15 [facility] Comment on above: Order Comment: LUPE SEND RESULTS OF B12 AND FOLATES TO Performed By: #### L 501.9985, L500.2500, L501.4405, L3100.1725, L503.0106, L501.4100 #### [facility] [address] [place], [address] GFR/1.73 sq M.predicted among non-blacks MDRD (S/P/Bld) [Vol rate/Area] 86 mL/min/{1.73_m2} Normal >60 [facility] Comment on above: Order Comment: [facility] SEND RESULTS OF B12 AND FOLATES TO Result Comment: mL/m in/1.73m2 CKD-EPI Creatinine Equation (2020) Performed By: #### L 501.9985, L500.2500, L501.4405, L3100.1725, L503.0106, L501.4100 #### [facility] [address] [place], [address] Glucose [Mass/Vol] 52 mg/dL Low 70-99 [facility] Comment on above: Order Comment: LUPE Deleon SEND RESULTS OF B12 AND FOLATES TO Performed By: #### L 501.9985, L500.2500, L501.4405, L3100.1725, L503.0106, L501.4100 #### [facility] [address] [place], [address] Potassium [Moles/Vol] 3.9 mmol/L Normal 3.3-5.1 [facility] Comment on above: Order Comment: LUPE Deleon SEND RESULTS OF B12 AND FOLATES TO Performed By: #### L 501.9985, L500.2500, L501.4405, L3100.1725, L503.0106, L501.4100 #### [facility] [address] [place], [address] Sodium [Moles/Vol] 142 mmol/L Normal 133-145 [facility] Comment on above: Order Comment: LUPE SEND RESULTS OF B12 AND FOLATES TO Performed By: #### L 501.9985, L500.2500, L501.4405, L3100.1725, L503.0106, L501.4100 #### [facility] [address] [place], [address] Urea nitrogen [Mass/Vol] 18 mg/dL Normal 4-19 [facility] Comment on above: Order Comment: LUPE SEND RESULTS OF B12 AND FOLATES TO Performed By: #### L 501.9985, L500.2500, L501.4405, L3100.1725, L503.0106, L501.4100 #### [facility] Laboratory [address] [place], [address] Carbon dioxide, total [Moles /volume] in Central venous bloodOrdered By: Natasha Gregory on 05-26-2025 CO2 [Moles/Vol] 25.8 mmol/L 21.0-32.0 [facility] Chloride assayOrdered By: Terri Gregory on 05-26-2025 Chloride [Moles/Vol] 104 mmol/L 98-108 [facility] Erythrocyte folate measureme nt with hematocritOrdered By: Natasha Gregory on 05-26-2025 Hematocrit (Bld) [Volume fraction] 45.8 % 37.5-51.0 [facility] Glomerular filtration rate ( GFR) estimation/1.73 sq m using serum, plasma, or whole bOrdered By: Natasha Gregory on 05-26-2025 GFR/1.73 sq M.predicted among non-blacks MDRD (S/P/Bld) [Vol rate/Area] 86 mL/min/{1.73_m2} >60 [facility] Comment on above: mL/min/1.73m2 CKD-EP I Creatinine Equation (2020) Hemoglobin A1con 05-26-2025 HbA1c (Bld) [Mass fraction] 6.6 % High <=5.6 [facility] Comment on above: Order Comment: LUPE Deleon SEND RESULTS OF B12 AND FOLATES TO Result Comment: Norm al < 5.7 % Prediabetic 5.7 - 6.4 % Diabetic >or= 6.5 % Please note range changes. Performed By: #### L 501.9985, L500.2500, L501.4405, L3100.1725, L503.0106, L501.4100 #### [facility] Laboratory [address] [place], [address] Hemoglobin A1c percentageOrd ered By: Natasha Gregory on 05-26-2025 HbA1c (Bld) [Mass fraction] 6.6 % High <5.7 [facility] Comment on above: Normal < 5.7 % Predi abetic 5.7 - 6.4 % Diabetic >or= 6.5 % Please note range changes. Laboratory - Chemistry and C hemistry - challengeOrdered By: Natasha Gregory on 05-26-2025 AST [Catalytic activity/Vol] 14 U/L <38 [facility] Potassium measurement (mass/ volume)Ordered By: Natasha Gregory on 05-26-2025 Potassium (Unsp spec) [Mass/Vol] 3.9 mmol/L 3.3-5.1 [facility] Serum creatinine measurement (mass/volume)Ordered By: Natasha Gregory on 05-26-2025 Creatinine [Mass/Vol] 0.91 mg/dL 0.70-1.20 [facility] Serum glucose measurement (m ass/volume)Ordered By: Natasha Gregory on 05-26-2025 Glucose [Mass/Vol] 52 mg/dL Low 70-99 [facility] Serum or plasma alanine max otransferase (ALT) measurementOrdered By: Natasha Gregory on 05-26-2025 ALT [Catalytic activity/Vol] 6 U/L <47 [facility] Serum or plasma calcium walt urement (mass/volume)Ordered By: Natasha Gregory on 05-26-2025 Calcium [Mass/Vol] 9.2 mg/dL 7.6-11.0 [facility] Serum or plasma urea nitroge n measurement (mass/volume)Ordered By: Natasha Gregory on 05-26-2025 Urea nitrogen [Mass/Vol] 18 mg/dL 4-19 [facility] Sodium levelOrdered By: Josefina Gregory on 05-26-2025 Sodium [Moles/Vol] 142 mmol/L 133-145 [facility] Vitamin B12on 05-26-2025 Cobalamin (Vitamin B12) [Mass/Vol] 287 pg/mL Normal 180-914 [facility] Comment on above: Order Comment: LUPE Deleon SEND RESULTS OF B12 AND FOLATES TO Performed By: #### L 501.9985, L500.2500, L501.4405, L3100.1725, L503.0106, L501.4100 #### [facility] Laboratory [address] [place], [place], [id number] Vitamin B12 ser/plasOrdered By: Natasha Gregory on 05-26-2025 Cobalamin (Vitamin B12) [Mass/Vol] 287 pg/mL 180-914 [facility] D/C Summary- SPon 05-19-2025 D/C Summary- SP [facility] Speech Pathology Health[address] [place] [address] / REHABILITATION SERVICES DISCHARGE SUMMARY MR#: [id number] Acct: [id number] Name: KEVIN GRIFFITH Rep #: [id number] : 1945 79 From: Ayden Linares M.A., [facility] Referring Dr.: Dr. Vick Santo MD Status: REG RCR Insurance: MEDICARE PART A B [place] Discharge Summary Discharged: Discharge: Kevin Griffith is discharged from [facility] as of 05/14/25 as he requested discharge. [...] Supervision: Assist as needed ( informed the SEAT MENDER that supervision at each meal is not possible, SEAT MENDER recommends supervision as much as able to cue use of safe swallow strategies). On his last visit he requested to discontinue therapy at [facility] as he stated he has too many appointments and will consider getting therapy at his assisted living. Please see daily notes and reports for complete details. Thank you for allowing me to participate in the care of this patient. 05/19/25 0123 CC: Dr. Ron Cooley MD; Dr. Vick Santo MD JLM Signed Normal [facility] Bedside Glucoseon 05-11-2025 [place] GLU 97 mg/dL Normal 74-106 [facility] Comment on above: Result Comment: GARY REYES OF PATIENT CARE PER NURSING PROTOCOL Performed By: #### L 501.9979, L500.2500, L501.4405, L3100.1725, L503.0106, L501.4100 #### [facility] Laboratory [address] [place], [address] Emergency Department Summary on 05-11-2025 Emergency Department Summary [facility] Medical Records Department [address] [place] [address] Emergency Department Summary 05/11/25 MR#: [id number] Acct: [id number] Name: KEVIN GRIFFITH Rep #: [id number] : 1945 79 From: Dano Minor MD [...] Narrative: BMI (more content not included)... Normal [facility] deOrdered By: Dano Minor on 05-11-2025 Glucose [Mass/Vol] 97 mg/dL 74-106 [facility] Comment on above: MANAGEMENT OF PATIEN T CARE PER NURSING PROTOCOL Modified Barium Swallow Stud yon 05-09-2025 Modified Barium Swallow Study [facility] Speech Pathology [address] [place] [address] Modified Barium Swallow Study MR#: [id number] Acct: [id number] Name: KEVIN GRIFFITH Rep #: [id number] : 1945 79 From: Heather Titus M.A., [facility] Modified Barium Swallow Patient Information Study Date: 05/09/25 Study Time: 13:05 Direct Billable Minutes: 120 Total Minutes procedure reportin Diagnosis: Dysphagia R13.10 Referring Physician: Vick Santo Reason for Referral: The patient presents for repeat MBSS recommended by his OP SEAT MENDER. Patient and report coughing w/ food and [...] cup: Result: 2= enter airway/above vocal folds/ejected [place] Thick Liquid via large single sip: cup: [...] small single (more content not included)... Normal [facility] Microalb:Creat Ratio,Random URon 05-08-2025 MALB:CREAT 8.8 mg/g CRE [facility] Comment on above: Result Comment: AMENDED REPORT 05/08/25 0851 MALB:CREAT previously reported as: 87.7 mg/g CRE Performed By: #### L 501.4100, L500.2500, L501.4405, L501.9985, L502.0250 ####[facility] [address] [place], [address] CT MAXILLOFACIAL WO IV CONTR Princess 04-13-2025 CT MAXILLOFACIAL WO IV CONTRAST Patient Name: [facility] 1945 [id number] Exam Date/Time: 04/13/2025 21:07 Procedure: CT MAXILLOFACIAL [...] lac to forehead above left eye Normal [facility] CT Maxillofacial [facility] 04-13-2025 1. Bilateral nasal bone fractures. 2. Left frontal scalp laceration with contusion. Report Dictated on Electronically Signed By: Maine Briones MD Electronically Signed Date/Time: 04/13/2025 9:21 PM EDT [facility] Patient Name: KEVIN GRIFFITH : [...] airway is patent. The epiglottis is normal. [facility] Maine Briones MD - 04/13/2025 [...] contusion. Report Dictated on Electronically Signed By: Miane Briones MD Electronically Signed Date/Time: 04/13/2025 9:21 PM EDT [facility] Radiology Study observation (narrative) [facility] CT Maxillofacial region WO c ontrastOrdered By: Maine Briones on 04-13-2025 [facility] Work Phone: ED Nursing Noteon 04-13-2025 ED Nursing Note Pt presents to ED vi a EMS from restaurant for c/o left frontal head lac after losing footing and falling onto face on the ground. Pt has hx of parkinson's. Abrasion noted to forehead, small lac noted to bridge of nose as well as a large lac to forehead above left eye Normal [facility] ED Provider Noteon ED Provider Note [...] records from: PDMP demonstrating 1 prescription, for [place] CT demonstrating bilateral nasal bone fractures. The [...] initial encounter Medications lidocaine-EPINEPHrine (Xylocaine W/EPI) 1 %-1:[id number] injection 10 mL (has no administration in [...] Consent obtained: Verbal Consent given by: Patient [place] protocol: Imaging studies available: yes Patient identi (more content not included)... [facility] No Panel Informationon 04-13 Chetan Powell MD 04/13/2025 10:22 PM Laceration Repair Performed by: Chetan Powell MD Authorized by: Chetan Powell MD Consent: Consent obtained: Verbal Consent given by: Patient [place] protocol: Imaging studies available: yes Patient identity [...] Dressing: Open (no dressing) Procedure completion: Tolerated [facility] Brain/Head without Contrasto n 04-09-2025 Brain/Head without Contrast [facility] Imaging Services [address] [place], [place] [address] Brain/Head without Contrast MR#: [id number] Acct: [id number] Name: KEVIN GRIFFITH Rep #: [id number] : 1945 M 79 From: Donnell Corey MD PCP: Dr. Ron Cooley MD Status: REG ER Study: Brain/Head without Contrast Date of Exam: 03/21 12/14 Exam# [id number] Ordering Dr: Surya Dumont MD EXAM: CT [...] change from the prior exam. Reading Location: [facility] CC: Dr. Surya Dumont MD; Dr. Ron Cooley MD Express Manager: Signed Normal [facility] Emergency Department Summary on 04-09-2025 Emergency Department Summary [facility] Medical Records Department [address] [place] [address] Emergency Department Summary 04/09/25 MR#: [id number] Acct: [id number] Name: KEVIN GRIFFITH Rep #: [id number] : 1945 79 From: Surya Dumont MD [...] take blood thinners. Tetanus Immunization: <5 years [facility] Medical History Parkinson's disease Right bundle branch [...] Medical decis (more content not included)... Normal [facility] Spine Cervical without Contr ason 04-09-2025 Spine Cervical without Contras [facility] Imaging Services [address] [place], [place] [id number] Spine Cervical without Contras MR#: [id number] Acct: [id number] Name: KEVIN GRIFFITH Rep #: [id number] : 1945 M 79 From: Donnell Corey MD PCP: Dr. Ron Cooley MD Status: REG ER Study: Spine Cervical without Contras Date of Exam: 0 04/09/25 Exam# [id number] Ordering Dr: Surya Dumont MD EXAM: CT [...] the cervical spine as described. Reading Location: [facility] CC: Dr. Surya Dumont MD; Dr. Ron Cooley MD Express Manager: Signed Normal [facility] Anion gap in Serum or Plasma Ordered By: Ron Cooley on 04-03-2025 Anion gap [Moles/Vol] 11 mmol/L 04-03 [facility] BUN/creatinine ratioOrdered By: Ron Cooley on 04-03-2025 Urea nitrogen/Creatinine [Mass ratio] 20.8 mg/mg High 10- [facility] Bilirubin, totalOrdered By: Ron Cooley on 04-03-2025 Bilirubin [Mass/Vol] 0.52 mg/dL 0.00-1.30 [facility] Calculated very low density lipoprotein (VLDL) cholesterol measurementOrdered By: Ron Cooley on 04-03-2025 Calculated very low density lipoprotein (VLDL) cholesterol measurement 27 mg/dL 5-40 [facility] Carbon dioxide, total [Moles /volume] in Central venous bloodOrdered By: Ron Cooley on 04-03-2025 CO2 [Moles/Vol] 26.4 mmol/L 21.0-32.0 [facility] Chloride assayOrdered By: Rimma Cooley on 04-03-2025 Chloride [Moles/Vol] 104 mmol/L 98-108 [facility] Comprehensive Metabolic Prof ilon 04-03-2025 Albumin [Mass/Vol] 3.9 g/dL Normal 3.4-4.8 [facility] Comment on above: Order Comment: Order Date: 03/13/25 Order Info: [id number] - CMP Order Info: [id number] - LIPID Performed By: #### L 500.4050 #### [facility] [address] [place], [place] [address]all [facility] [place], [address] Albumin/Globulin [Mass ratio] 1.4 {ratio} Normal 0.9-2.4 [facility] Comment on above: Order Comment: Order Date: 03/13/25 Order Info: 0786-1 - CMP Order Info: [id number] - LIPID Performed By: #### L 500.4050 #### [facility] [address] [place], [address] ALK PHOS 79 U/L Normal 40-129 [facility] Comment on above: Order Comment: Order Date: 03/13/25 Order Info: 0786-1 - CMP Order Info: [id number] - LIPID Performed By: #### L 500.4050 #### [facility] [address] [place], [address] ALT [Catalytic activity/Vol] 5 U/L Normal <=46 [facility] Comment on above: Order Comment: Order Date: 03/13/25 Order Info: 0786-1 - CMP Order Info: [id number] - LIPID Performed By: #### L 500.4050 #### [facility] [address] [place], [address] AST [Catalytic activity/Vol] 17 U/L Normal <=37 [facility] Comment on above: Order Comment: Order Date: 03/13/25 Order Info: 0786-1 - CMP Order Info: [id number] - LIPID Performed By: #### L 500.4050 #### [facility] [address] [place], [address] Bilirubin [Mass/Vol] 0.52 mg/dL Normal 0.00-1.30 [facility] Comment on above: Order Comment: Order Date: 03/13/25 Order Info: 0786-1 - CMP Order Info: [id number] - LIPID Performed By: #### L 500.4050 #### [facility] [address] [place], [address] BUN/CRE 20.8 RATIO High 10-20 [facility] Comment on above: Order Comment: Order Date: 03/13/25 Order Info: 0786-1 - CMP Order Info: [id number] - LIPID Performed By: #### L 500.4050 #### [facility] [address] [place], [address] Calcium [Mass/Vol] 9.2 mg/dL Normal 7.6-11.0 [facility] Comment on above: Order Comment: Order Date: 03/13/25 Order Info: 0786-1 - CMP Order Info: [id number] - LIPID Performed By: #### L 500.4050 #### [facility] [address] [place], [address] Chloride [Moles/Vol] 104 mmol/L Normal 98-108 [facility] Comment on above: Order Comment: Order Date: 03/13/25 Order Info: 0786-1 - CMP Order Info: [id number] - LIPID Performed By: #### L 500.4050 #### [facility] [address] [place], [address] CO2 [Moles/Vol] 26.4 mmol/L Normal 21.0-32.0 [facility] Comment on above: Order Comment: Order Date: 03/13/25 Order Info: 0786-1 - CMP Order Info: [id number] - LIPID Performed By: #### L 500.4050 #### [facility] [address] [place], [address] Creatinine [Mass/Vol] 0.78 mg/dL Normal 0.70-1.20 [facility] Comment on above: Order Comment: Order Date: 03/13/25 Order Info: 0786-1 - CMP Order Info: [id number] - LIPID Performed By: #### L 500.4050 #### [facility] [address] [place], [address] GAP 11 Normal 5-15 [facility] Comment on above: Order Comment: Order Date: 03/13/25 Order Info: 0786-1 - CMP Order Info: [id number] - LIPID Performed By: #### L 500.4050 #### [facility] [address] [place], [place], [address] GFR/1.73 sq M.predicted among non-blacks MDRD (S/P/Bld) [Vol rate/Area] 90 mL/min/{1.73_m2} Normal >60 [facility] Comment on above: Order Comment: Order Date: 03/13/25 Order Info: 0786-1 - CMP Order Info: [id number] - LIPID Result Comment: mL/m in/1.73m2 CKD-EPI Creatinine Equation (2020) Performed By: #### L 500.4050 #### [facility] [address] [place], [address] Globulin (S) [Mass/Vol] 2.8 g/dL Normal 2.2-4.2 [facility] Comment on above: Order Comment: Order Date: 03/13/25 Order Info: 0786-1 - CMP Order Info: [id number] - LIPID Performed By: #### L 500.4050 #### [facility] [address] [place], [address] Glucose [Mass/Vol] 109 mg/dL High 70-99 [facility] Comment on above: Order Comment: Order Date: 03/13/25 Order Info: 0786-1 - CMP Order Info: [id number] - LIPID Performed By: #### L 500.4050 #### [facility] [address] [place], [address] Potassium [Moles/Vol] 3.9 mmol/L Normal 3.3-5.1 [facility] Comment on above: Order Comment: Order Date: 03/13/25 Order Info: 0786-1 - CMP Order Info: [id number] - LIPID Performed By: #### L 500.4050 #### [facility] [address] [place], [address] Sodium [Moles/Vol] 142 mmol/L Normal 133-145 [facility] Comment on above: Order Comment: Order Date: 03/13/25 Order Info: 0786-1 - CMP Order Info: [id number] - LIPID Performed By: #### L 500.4050 #### [facility] [address] [place], [place], [address] T PROT 6.6 g/dL Normal 5.9-8.4 [facility] Comment on above: Order Comment: Order Date: 03/13/25 Order Info: 0786-1 - CMP Order Info: [id number] - LIPID Performed By: #### L 500.4050 #### [facility] [address] [place], [place], [address] Urea nitrogen [Mass/Vol] 16 mg/dL Normal 4-19 [facility] Comment on above: Order Comment: Order Date: 03/13/25 Order Info: 0786-1 - CMP Order Info: [id number] - LIPID Performed By: #### L 500.4050 #### [facility] [address] [place], [place], [address] Glomerular filtration rate ( GFR) estimation/1.73 sq m using serum, plasma, or whole bOrdered By: Ron Cooley on 04-03-2025 GFR/1.73 sq M.predicted among non-blacks MDRD (S/P/Bld) [Vol rate/Area] 90 mL/min/{1.73_m2} >60 [facility] Comment on above: mL/min/1.73m2 CKD-EP I Creatinine Equation (2020) LDL calc ser/plasOrdered By: Ron Cooley on 04-03-2025 Cholesterol in LDL [Mass/Vol] 47 mg/dL [facility] Comment on above: Wyiunhzrct=986-420 m g/dL & Higher Bszk=765 mg/dL or greater Laboratory - Chemistry and C hemistry - challengeOrdered By: Ron Cooley on 04-03-2025 AST [Catalytic activity/Vol] 17 U/L <38 [facility] Lipid Profileon 04-03-2025 CHOL:HDL 2.63 Normal [facility] Comment on above: Order Comment: Order Date: 03/13/25Order Info: 07 - CMPOrder Info: [id number] - LIPID Performed By: #### L 500.4100 ####[facility] [address] [place], [place], [id number]) Cholesterol [Mass/Vol] 120 mg/dL Normal <=200 [facility] Comment on above: Order Comment: Order Date: 03/13/25Order Info: [id number] - CMPOrder Info: [id number] - LIPID Result Comment: Chol esterol level, Desirable <200 mg/dL Borderline high cholesterol 200-239 mg/dL High cholesterol >=240 mg/dL Recommendations of the NCEP Adult Treatment Panel for the following risk-cutoff thresholds for the [place] population. Performed By: #### L 500.4100 ####[facility] [address] [place], [place], [id number]) Cholesterol in HDL [Mass/Vol] 46 mg/dL Normal [facility] Comment on above: Order Comment: Order Date: 03/13/25Order Info: [id number] - CMPOrder Info: [id number] - LIPID Result Comment: Makayla onal Cholesterol Education Program (NCEP) guidelines: <40 mg/dL: Low HDL-cholesterol (major risk factor for CHD) >= 60 mg/dL: High HDL-cholesterol (negative risk factor for CHD) HDL-cholesterol is affected by a number of factors, e.g. smoking, exercise, hormones, sex and age. Performed By: #### L 500.4100 ####[facility] [address] [place], [place], [address]) Cholesterol in LDL [Mass/Vol] 47 mg/dL Normal [facility] Comment on above: Order Comment: Order Date: 03/13/25Order Info: 07 - CMPOrder Info: [id number] - LIPID Result Comment: Bord qpochi=568-171 mg/dL Higher Tcpk=953 mg/dL or greater Performed By: #### L 500.4100 ####[facility] [address] [place], [address] Cholesterol in VLDL [Mass/Vol] 27 mg/dL Normal 5-40 [facility] Comment on above: Order Comment: Order Date: 03/13/25Order Info: 0786-1 - CMPOrder Info: [id number] - LIPID Performed By: #### L 500.4100 ####[facility] [address] [place], [place], [address] Triglyceride [Mass/Vol] 135 mg/dL Normal [facility] Comment on above: Order Comment: Order Date: 03/13/25Order Info: [id number] - CMPOrder Info: [id number] - LIPID Result Comment: The drugs N-Acetylcysteine and Metamizole may falsely depress this assay. Normal range: <150 mg/dL Borderline High: 150-199 mg/dL High: 200-499 mg/dL Very High: >500 mg/dL Performed By: #### L 500.4100 ####[facility] [address] [place], [place], [address] Potassium measurement (mass/ volume)Ordered By: Ron Cooley on 04-03-2025 Potassium (Unsp spec) [Mass/Vol] 3.9 mmol/L 3.3-5.1 [facility] Screening total cholesterol/ high density lipoprotein (HDL) cholesterol ratioOrdered By: Ron Cooley on 04-03-2025 Cholesterol.total/Cholest gris in HDL [Mass ratio] 2.63 {ratio} [facility] Serum creatinine measurement (mass/volume)Ordered By: Ron Cooley on 04-03-2025 Creatinine [Mass/Vol] 0.78 mg/dL 0.70-1.20 [facility] Serum globulin measurementOr dered By: Ron Cooley on 04-03-2025 Globulin (S) [Mass/Vol] 2.8 g/dL 2.2-4.2 [facility] Serum glucose measurement (m ass/volume)Ordered By: Ron Cooley on 04-03-2025 Glucose [Mass/Vol] 109 mg/dL High 70-99 [facility] Serum or plasma alanine max otransferase (ALT) measurementOrdered By: Ron Cooley on 04-03-2025 ALT [Catalytic activity/Vol] 5 U/L <47 [facility] Serum or plasma albumin walt urement (mass/volume)Ordered By: Ron Cooley on 04-03-2025 Albumin [Mass/Vol] 3.9 g/dL 3.4-4.8 [facility] Serum or plasma albumin/glob ulin mass ratioOrdered By: Ron Cooley on 04-03-2025 Albumin/Globulin [Mass ratio] 1.4 {ratio} 0.9-2.4 [facility] Serum or plasma alkaline sarah sphatase measurementOrdered By: Ron Coloey on 04-03-2025 ALP [Catalytic activity/Vol] 79 U/L 40-129 [facility] Serum or plasma calcium walt urement (mass/volume)Ordered By: Ron Cooley on 04-03-2025 Calcium [Mass/Vol] 9.2 mg/dL 7.6-11.0 [facility] Serum or plasma cholesterol in HDL measurement (mass/volume)Ordered By: Ron Cooley on 04-03-2025 Cholesterol in HDL [Mass/Vol] 46 mg/dL >40 [facility] Comment on above: National Cholesterol Education Program (NCEP) guidelines:<40 mg/dL: Low HDL-cholesterol (major risk factor for CHD)>= 60 mg/dL: High HDL-cholesterol (negative risk factor for CHD)HDL-cholesterol is affected by a number of factors, e.g. smoking, exercise, hormones, sex and age. Serum or plasma cholesterol measurement (mass/volume)Ordered By: Ron Cooley on 04-03-2025 Cholesterol [Mass/Vol] 120 mg/dL <201 [facility] Comment on above: Cholesterol level, D esirable <200 mg/dLBorderline high cholesterol 200-239 mg/dLHigh cholesterol >=240 mg/dLRecommendations of the NCEP Adult Treatment Panel for the following risk-cutoff thresholds for the [place] population. Serum or plasma urea nitroge n measurement (mass/volume)Ordered By: Ron Cooley on 04-03-2025 Urea nitrogen [Mass/Vol] 16 mg/dL 4-19 [facility] Sodium levelOrdered By: Ron Cooley on 04-03-2025 Sodium [Moles/Vol] 142 mmol/L 133-145 [facility] Total proteinOrdered By: Kwabena Cooley on 04-03-2025 Protein [Mass/Vol] 6.6 g/dL 5.9-8.4 [facility] Triglycerides measurementOrd ered By: Ron Cooley on 04-03-2025 Triglyceride [Mass/Vol] 135 mg/dL <199 [facility] Comment on above: The drugs N-Acetylcy steine and Metamizole may falsely depress this assay. Normal range: <150 mg/dLBorderline High: 150-199 mg/dLHigh: 200-499 mg/dLVery High: >500 mg/dL Vitamin D,25 Hydroxyon 04-03 Vitamin D 25-OH 39.2 ng/mL Normal 30-100 [facility] Comment on above: Order Comment: LUPE Deleon SEND RESULTS OF B12 AND FOLATES TO Result Comment: Lisa min D Status Deficiency: <20 ng/mL (50nmol/L) Insufficiency: 20-30 ng/mL (50-75 nmol/L) Sufficiency: 30-100 ng/mL (75-250 nmol/L) Toxicity: >100 ng/mL (>250 nmol/L) Performed By: #### L 501.9985, L500.2500, L501.4405, L3100.1725, L503.0106, L501.4100 #### [facility] [address] [facility], [address] Chest without Contraston Chest without Contrast [facility] Imaging Services [address] [place] [address] Chest without Contrast MR#: [id number] Acct: [id number] Name: KEVIN GRIFFITH Rep #: [id number] : 1945 M 79 From: Donnell Corey MD PCP: Dr. Ron Cooley MD Status: DEP CLI Study: Chest without Contrast Date of Exam: 03/24/25 Exam# [id number] Ordering Dr: Jose Perez MD EXAM: CT [...] scarring, greater on the left. Reading Location: [facility] CC: Dr. Ron Cooley MD; Dr. Jose Perez MD Express Manager: Signed Normal [facility] Neurology Visit Reporton Neurology Visit Report [facility] [address], [address] [place] [address] OFFICE VISIT Date of Service: 03/20/25 MR#: [id number] Acct: [id number] Name: KEVIN GRIFFITH Rep #: [id number] : 1945 Provider: Dr. Vick beltran MD Age/Sex: 79/M Location: [facility]. Status: Signed with Addenda ADDENDUM by Dr. 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 Normal [facility] Absolute lymphocyte countOrd ered By: Jose Perez on 04-14-2025 Lymphocytes Auto (Unsp spec) [#/Vol] 4.51 10*3/uL 0.83-4.51 [facility] Absolute neutrophil countOrd ered By: Jose Perez on 03-03-2025 Neutrophils (Bld) [#/Vol] 5.4 10*3/uL 2.0-7.7 [facility] Automated lymphocyte count a s percentage of total leukocytesOrdered By: Jose Perez on 03-03-2025 Lymphocytes/100 WBC Auto (Unsp spec) 39.8 % 19-41 [facility] Basophil percentageOrdered B y: Jose Perez on 03-03-2025 Basophils/100 WBC (Bld) 0.7 % 0-1 [facility] CBC W/Diff, Automatedon 02-18 Absolute Lymph 4.51 X10 3/uL Normal 0.83-4.51 [facility] Comment on above: Performed By: #### L 100.0100 ####[facility] [address] [facility] [address] Absolute Neut 5.4 X10 3/uL Normal 2.0-7.7 [facility] Comment on above: Performed By: #### L 100.0100 ####[facility] [address] [facility] [address] Basophils/100 WBC (Bld) 0.7 % Normal 0-1 [facility] Comment on above: Performed By: #### L 100.0100 ####[facility] [address] [place], [address] Eosinophils/100 WBC (Bld) 1.2 % Normal 0-5 [facility] Comment on above: Performed By: #### L 100.0100 ####[facility] [address] [facility] [address] Erythrocyte distribution width (RBC) [Ratio] 13.6 % Normal 11.6-14.6 [facility] Comment on above: Performed By: #### L 100.0100 ####[facility] [address] [place], [address] Hematocrit (Bld) [Volume fraction] 44.2 % Normal 40-54 [facility] Comment on above: Performed By: #### L 100.0100 ####[facility] [address] [place], [address] Hemoglobin (Bld) [Mass/Vol] 14.5 g/dL Normal 13.0-16.5 [facility] Comment on above: Performed By: #### L 100.0100 ####[facility] [address] [place], [address] IG% 0.500 Normal 0.0-0.9 [facility] Comment on above: Result Comment: IG% - Immature Granulocytes (promyelocytes, myelocytes and metamyelocytes) > 1% indicates that a LEFT SHIFT is Present. Performed By: #### L 100.0100 ####[facility] [address] [place], [address] Lymphocytes/100 WBC (Bld) 39.8 % Normal 19-41 [facility] Comment on above: Performed By: #### L 100.0100 ####[facility] [address] [place], [address] MCH (RBC) [Entitic mass] 30.3 pg Normal 27.0-32.0 [facility] Comment on above: Performed By: #### L 100.0100 ####[facility] [address] [place], [address] MCHC (RBC) [Mass/Vol] 32.8 g/dL Normal 32-36 [facility] Comment on above: Performed By: #### L 100.0100 ####[facility] [address] [place], [address] MCV (RBC) [Entitic vol] 92.3 fL Normal 80-94 [facility] Comment on above: Performed By: #### L 100.0100 ####[facility] [address] [place], [address] Monocytes/100 WBC (Bld) 9.8 % Normal 0-10 [facility] Comment on above: Performed By: #### L 100.0100 ####[facility] [address] [place], [address] Neutrophils/100 WBC (Bld) 48.0 % Normal 47-70 [facility] Comment on above: Performed By: #### L 100.0100 ####[facility] [address] [place], [address] Nucleated RBC (Bld) [#/Vol] 0 10*3/uL Normal 0-5 [facility] Comment on above: Performed By: #### L 100.0100 ####[facility] [address] [place], [address] Platelet mean volume (Bld) [Entitic vol] 10.5 fL Normal 6.2-12.0 [facility] Comment on above: Performed By: #### L 100.0100 ####[facility] [address] [place], [address] Platelets (Bld) [#/Vol] 339 10*3/uL Normal 150-450 [facility] Comment on above: Performed By: #### L 100.0100 ####[facility] [address] [place], [address] RBC (Bld) [#/Vol] 4.79 10*6/uL Normal 4.6-6.2 [facility] Comment on above: Performed By: #### L 100.0100 ####[facility] [address] [place], [address] RDW SD 46.1 fl High 35.1-43.9 [facility] Comment on above: Performed By: #### L 100.0100 ####[facility] [address] [place], [place], [address] WBC (Bld) [#/Vol] 11.3 10*3/uL High 4.4-11.0 [facility] Comment on above: Performed By: #### L 100.0100 ####[facility] [address] [place], [place], [address] Eosinophil percentageOrdered By: Jose Perez on 03-03-2025 Eosinophils/100 WBC (Bld) 1.2 % 0-5 [facility] Erythrocyte distribution wid th (RBC) [Ratio]Ordered By: Jose Perez on 03-03-2025 Erythrocyte distribution width (RBC) [Entitic vol] 46.1 fL High 35.1-43.9 [facility] Erythrocyte distribution wid th ratioOrdered By: Lindsay Ana on 03-03-2025 Erythrocyte distribution width (RBC) [Ratio] 13.6 % 11.6-14.6 [facility] Erythrocyte distribution wid th standard deviationOrdered By: Lindsay Ana on 03-03-2025 Erythrocyte distribution width (RBC) [Ratio] 46.1 fl High 35.1-43.9 [facility] Hematocrit Auto (Bld) [Volum e fraction]Ordered By: Jose Perez on 03-03-2025 Hematocrit (Bld) [Volume fraction] 44.2 % 40-54 [facility] Hemoglobin measurementOrdere d By: Jose Perez on 03-03-2025 Hemoglobin (Bld) [Mass/Vol] 14.5 g/dL 13.0-16.5 [facility] Immature granulocytes/100 WB C Auto (Bld)Ordered By: Jose Perez on 03-03-2025 Immature granulocytes/100 WBC (Bld) 0.500 % 0.0-0.9 [facility] Comment on above: IG% - Immature Granu locytes (promyelocytes, myelocytes and metamyelocytes) > 1% indicates that a LEFT SHIFT is Present. Lymphocytes Auto (Unsp spec) [#/Vol]Ordered By: Jose Perez on 03-03-2025 Lymphocytes (Bld) [#/Vol] 4.51 10*3/uL 0.83-4.5 1 [facility] Lymphocytes/100 WBC Auto (Un sp spec)Ordered By: Jose Perez on 03-03-2025 Lymphocytes/100 WBC (Bld) 39.8 % 19-41 [facility] MCV (mean corpuscular volume ) determinationOrdered By: Jose Perez on 03-03-2025 MCV (RBC) [Entitic vol] 92.3 fL 80-94 [facility] Mean corpuscular hemoglobin (MCH) determinationOrdered By: Jose Perez on 03-03-2025 MCH (RBC) [Entitic mass] 30.3 pg 27.0-32.0 [facility] Mean corpuscular hemoglobin concentration (MCHC) determinationOrdered By: Jose Perez on 03-03-2025 MCHC (RBC) [Mass/Vol] 32.8 g/dL 32-36 [facility] Mean platelet volume determi nationOrdered By: Jose Perez on 03-03-2025 Platelet mean volume (Bld) [Entitic vol] 10.5 fL 6.2-12.0 [facility] Monocyte percentageOrdered B y: Jose Perez on 03-03-2025 Monocytes/100 WBC (Bld) 9.8 % 0-10 [facility] Neutrophil percentageOrdered By: Jose Perez on 03-03-2025 Neutrophils/100 WBC (Bld) 48.0 % 47-70 [facility] Nucleated red blood cell per centageOrdered By: Jose Perez on 03-03-2025 Nucleated RBC/100 WBC (Bld) [Ratio] 0 % 0-5 [facility] Platelet countOrdered By: Jasmine Perez on 03-03-2025 Platelets (Bld) [#/Vol] 339 10*3/uL 150-450 [facility] RBC Auto (Bld) [#/Vol]Ordere d By: Jose Perez on 03-03-2025 RBC (Bld) [#/Vol] 4.79 10*6/uL 4.6-6.2 [facility] White blood cell (WBC) count Ordered By: Jose Perez on 03-03-2025 WBC (Bld) [#/Vol] 11.3 10*3/uL High 4.4-11.0 [facility] SP/HP.SP.[place] 02-26-2025 SP/HP.SP.EV [facility] Speech Pathology [facility] [address] [place] [address] / REHABILITATION SERVICES INITIAL EVALUATION MR#: [id number] Acct: [id number] Name: KEVIN GRIFFITH Rep #: [id number] : 1945 79 From: Ayden Linares M.A., [facility] Referring Dr.: Dr. Vick Santo MD Status: REG R Insurance: MEDICARE PART A B FOR LIFE Visit History Visit Info Date of Eval: 02/25/25 Visit: 1 Bog Cutter: SO History Attending Doctor: Referring Doctor: Reason [...] waiting list for an assisted living ( [place]) as he is exhibiting increased memory deficits [...] current prescribed condition?: No Personal Preferred language: Guine[place] Patient Allergies Allergies Allergies: Allergies metoclopramide (From [...] 02/25/25 15:18 Speech Therapy by Ayden Linares [facility] Speech Pathology [address] [place] [address] Modified Barium Swallow Study MR#: [id number] Acct: [id number] Name: KEVIN GRIFFITH Rep #: [id number] : 1945 79 From: Chayito Barber Modified [...] airway 2 (more content not included)... Normal [facility] AST(SGOT)on 02-20-2025 AST [Catalytic activity/Vol] 13 U/L Normal <=37 [facility] Comment on above: Performed By: #### L 501.4100, L500.2500, L501.4405, L501.9985, L502.0250 ####[facility] [address] [place], [address] Alanine Aminotransferas (SGP T)on 02-20-2025 ALT [Catalytic activity/Vol] 7 U/L Normal <=46 [facility] Comment on above: Performed By: #### L 501.4100, L500.2500, L501.4405, L501.9985, L502.0250 ####[facility] [address] [place], [address] Albumin DL <= 20 mg/L (U) [M ass/Vol]Ordered By: Natasha Gregory on 02-20-2025 Urine Random Microalbumin 13.6 mg/L NO RANGE EST. [facility] Anion gap in Serum or Plasma Ordered By: Natasha Gregory on 02-20-2025 Anion gap [Moles/Vol] 13 mmol/L 5-15 [facility] BUN/creatinine ratioOrdered By: Natasha Gregory on 02-20-2025 Urea nitrogen/Creatinine [Mass ratio] 23.0 mg/mg High 10-20 [facility] Basic Metabolic Profile (BMP )on 02-20-2025 BUN/CRE 23.0 RATIO High - [facility] Comment on above: Performed By: #### L 501.4100, L500.2500, L501.4405, L501.9985, L502.0250 ####[facility] [address] [place], [address] Calcium [Mass/Vol] 9.0 mg/dL Normal 7.6-11.0 [facility] Comment on above: Performed By: #### L 501.4100, L500.2500, L501.4405, L501.9985, L502.0250 ####[facility] [address] [place], [address] Chloride [Moles/Vol] 102 mmol/L Normal 98-108 [facility] Comment on above: Performed By: #### L 501.4100, L500.2500, L501.4405, L501.9985, L502.0250 ####[facility] [address] [place], [address] CO2 [Moles/Vol] 21.9 mmol/L Normal 21.0-32.0 [facility] Comment on above: Performed By: #### L 501.4100, L500.2500, L501.4405, L501.9985, L502.0250 ####[facility] [address] [place], [address] Creatinine [Mass/Vol] 0.83 mg/dL Normal 0.70-1.20 [facility] Comment on above: Performed By: #### L 501.4100, L500.2500, L501.4405, L501.9985, L502.0250 ####[facility] [address] [place], [address] GAP 13 Normal 5-15 [facility] Comment on above: Performed By: #### L 501.4100, L500.2500, L501.4405, L501.9985, L502.0250 ####[facility] [address] [place], [address] GFR/1.73 sq M.predicted among non-blacks MDRD (S/P/Bld) [Vol rate/Area] 89 mL/min/{1.73_m2} Normal >60 [facility] Comment on above: Result Comment: mL/m in/1.73m2 CKD-EPI Creatinine Equation (2020) Performed By: #### L 501.4100, L500.2500, L501.4405, L501.9985, L502.0250 ####[facility] [address] [place], [address] Glucose [Mass/Vol] 277 mg/dL High 70-99 [facility] Comment on above: Performed By: #### L 501.4100, L500.2500, L501.4405, L501.9985, L502.0250 ####[facility] [address] [place], [address] Potassium [Moles/Vol] 4.1 mmol/L Normal 3.3-5.1 [facility] Comment on above: Performed By: #### L 501.4100, L500.2500, L501.4405, L501.9985, L502.0250 ####[facility] [address] [place], [address] Sodium [Moles/Vol] 137 mmol/L Normal 133-145 [facility] Comment on above: Performed By: #### L 501.4100, L500.2500, L501.4405, L501.9985, L502.0250 ####[facility] [address] [place], [address] Urea nitrogen [Mass/Vol] 19 mg/dL Normal 4-19 [facility] Comment on above: Performed By: #### L 501.4100, L500.2500, L501.4405, L501.9985, L502.0250 ####[facility] [address] [place], [address] Carbon dioxide, total [Moles /volume] in Central venous bloodOrdered By: Natasha Gregory on 02-20-2025 CO2 [Moles/Vol] 21.9 mmol/L 21.0-32.0 [facility] Chloride assayOrdered By: Terri Gregory on 02-20-2025 Chloride [Moles/Vol] 102 mmol/L 98-108 [facility] Creatinine Unsp time (U) [Ma ss/Vol]Ordered By: Natasha Gregory on 02-20-2025 Creatinine (U) [Mass/Vol] 155.00 mg/dL 39 .00-259.0 0 [facility] GFR/1.73 sq M.predicted krystal g non-blacks MDRD (S/P/Bld) [Vol rate/Area]Ordered By: Natasha Gregory on 02-20-2025 Estimated GFR (MDRD) Non-Af Amer 89 >60 [facility] Comment on above: mL/min/1.73m2 CKD-EP I Creatinine Equation (2020) Glomerular filtration rate ( GFR) estimation/1.73 sq m using serum, plasma, or whole bOrdered By: Natasha Gregory on 02-20-2025 GFR/1.73 sq M.predicted among non-blacks MDRD (S/P/Bld) [Vol rate/Area] 89 mL/min/{1.73_m2} >60 [facility] Comment on above: mL/min/1.73m2 CKD-EP I Creatinine Equation (2020) Hemoglobin A1con 02-20-2025 HbA1c (Bld) [Mass fraction] 7.1 % Normal <=5.6 [facility] Comment on above: Performed By: #### L 501.4100, L500.2500, L501.4405, L501.9985, L502.0250 ####[facility] [address] [place], [place], [address] Hemoglobin A1c percentageOrd ered By: Natasha Gregory on 02-20-2025 HbA1c (Bld) [Mass fraction] 7.1 % >5.7 [facility] Laboratory - Chemistry and C hemistry - challengeOrdered By: Natasha Gregory on 02-20-2025 AST [Catalytic activity/Vol] 13 U/L <38 [facility] Microalbumin/creat ratio urO rdered By: Natasha Gregory on 02-20-2025 Urine Microalbumin/Creatinine Ratio 87.7 mg/g CRE [facility] Potassium (Unsp spec) [Mass/ Vol]Ordered By: Natasha Gregory on 02-20-2025 Potassium [Moles/Vol] 4.1 mmol/L 3.3-5.1 [facility] Potassium measurement (mass/ volume)Ordered By: Natasha Gregory on 02-20-2025 Potassium (Unsp spec) [Mass/Vol] 4.1 mmol/L 3.3-5.1 [facility] Random urine creatinine walt urement (mass/volume)Ordered By: Natasha Gregory on 02-20-2025 Creatinine Unsp time (U) [Mass/Vol] 155.00 mg/dL 39.00-259.0 0 [facility] Serum creatinine measurement (mass/volume)Ordered By: Natasha Gregory on 02-20-2025 Creatinine [Mass/Vol] 0.83 mg/dL 0.70-1.20 [facility] Serum glucose measurement (m ass/volume)Ordered By: Natasha Gregory on 02-20-2025 Glucose [Mass/Vol] 277 mg/dL High 70-99 [facility] Serum or plasma alanine max otransferase (ALT) measurementOrdered By: Natasha Gregoyr on 02-20-2025 ALT [Catalytic activity/Vol] 7 U/L <47 [facility] Serum or plasma calcium walt urement (mass/volume)Ordered By: Natasha Gregory on 02-20-2025 Calcium [Mass/Vol] 9.0 mg/dL 7.6-11.0 [facility] Serum or plasma urea nitroge n measurement (mass/volume)Ordered By: Natasha Gregory on 02-20-2025 Urea nitrogen [Mass/Vol] 19 mg/dL 4-19 [facility] Sodium levelOrdered By: Josefina Gregory on 02-20-2025 Sodium [Moles/Vol] 137 mmol/L 133-145 [facility] Urine albumin measurement wi th detection limit of 20 mg/L or less (mass/volume)Ordered By: Natasha Gregory on 02-20-2025 Albumin DL <= 20 mg/L (U) [Mass/Vol] 13.6 mg/L NO RANGE EST. [facility] Brain/Head without Contrasto n 02-14-2025 Brain/Head without Contrast [facility] [address] [place], [place] [address] Brain/Head without Contrast MR#: [id number] Acct: [id number] Name: KEVIN GRIFFITH Rep #: [id number] : 1945 M 79 From: Tatiana Guadalupe nd, MD PCP: Dr. Ron Cooley MD Status: REG ER Study: Brain/Head without Contrast Date of Exam: 01/19 07/14 Exam# [id number] Ordering Dr: Joe Soto DO EXAM: BRAIN/HEAD [...] ischemic change and age-related change. Reading Location: [id number] CC: Dr. Ron Cooley MD; Dr. Joe Soto DO Express Manager: Signed Normal [facility] Emergency Department Summary on 02-14-2025 Emergency Department Summary [facility] Medical Records Department [address] [place] [address] Emergency Department Summary 02/14/25 MR#: [id number] Acct: [id number] Name: KEVIN GRIFFITH Rep #: [id number] : 1945 79 From: Joe Soto DO [...] noted some blood on his scalp earlier [facility] Medical History Parkinson's disease Right bundle branch [...] polyuria Hematol (more content not included)... Normal [facility] Spine Cervical without Contr ason 02-14-2025 Spine Cervical without Contras [facility] [address] [place] [address] Spine Cervical without Contras MR#: [id number] Acct: [id number] Name: KEVIN GRIFFITH Rep #: [id number] : 1945 M 79 From: Tatiana Guadalupe nd, MD PCP: Dr. Ron Cooley MD Status: REG ER Study: Spine Cervical without Contras Date of Exam: 0 02/14/25 Exam# [id number] Ordering Dr: Joe Soto DO PROCEDURE: SPINE [...] ACUTE CERVICAL FRACTURE. DEGENERATIVE CHANGES. Reading Location: [id number]-GL CC: Dr. Ron Cooley MD; Dr. Joe Soto DO Express Manager: Signed Normal [facility] Neurology Visit Reporton Neurology Visit Report [facility] [address], [address] [place] [address] OFFICE VISIT Date of Service: 02/06/25 MR#: [id number] Acct: [id number] Name: KEVIN GRIFFITH Rep #: [id number] : 1945 Provider: Dr. Vick beltran MD Age/Sex: 79/M Location: [facility]. 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 Normal [facility] Chest PA and Lateralon 01-21 Chest PA and Lateral [facility] [address] [place], [place] [address] Chest PA and Lateral MR#: [id number] Acct: [id number] Name: KEVIN GRIFFITH Rep #: [id number] : 1945 M 79 From: Donnell Corey MD PCP: Dr. Ron Cooley MD Status: REG CLI Study: Chest PA and Lateral Date of Exam: 01/21/25 Exam# [id number] Ordering Dr: Ron Cooley MD EXAM: XR Chest, 2 Views CLINICAL INDICATION: TECHNIQUE: Frontal and lateral views of the chest. COMPARISON: No relevant prior studies available. FINDINGS: LUNGS AND PLEURAL SPACES: Unremarkable. No consolidation. No pneumothorax. HEART: Unremarkable. No cardiomegaly. MEDIASTINUM: Unremarkable. Normal mediastinal contour. BONES/JOINTS: Unremarkable. No acute fracture. RAD/Chest PA and Lateral IMPRESSION: No acute cardiopulmonary process. Reading [facility] CC: Dr. Ron Cooley MD Express Manager: Signed Normal [facility] Microalb:Creat Ratio,Random URon 12-10-2024 Creatinine [Mass/Vol] 104.00 mg/dL Normal NO RAN GE EST. [facility] Comment on above: Order Comment: [facility] SEND RESULTS OF B12 AND FOLATES TO Performed By: #### L 501.9985, L500.2500, L501.4405, L3100.1725, L503.0106, L501.4100 #### [facility] Laboratory [address], [address] MALB:CRE 17.0 mg/g CRE Normal <30 mg/g CRE [facility] Comment on above: Order Comment: [facility] SEND RESULTS OF B12 AND FOLATES TO Performed By: #### L 501.9985, L500.2500, L501.4405, L3100.1725, L503.0106, L501.4100 #### [facility] [address] [place], [place], [id number] MICROALBUMIN,UR 17.7 mg/L Normal NO RANGE EST. [facility] Comment on above: Order Comment: [facility] SEND RESULTS OF B12 AND FOLATES TO Performed By: #### L 501.9985, L500.2500, L501.4405, L3100.1725, L503.0106, L501.4100 #### [facility] Laboratory [address] [place], [place], [address] Neurology Visit Reporton Neurology Visit Report [facility] [address], [address] [place], [place] [address] OFFICE VISIT Date of Service: 12/10/24 MR#: [id number] Acct: [id number] Name: KEVIN GRIFFITH Rep #: [id number] : 1945 Provider: Dr. Vick beltran MD Age/Sex: 79/M Location: [facility].BN Status: Signed with Addenda ADDENDUM by Dr. 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 Normal [facility] Random urine microalbumin me asurementOrdered By: Ron Cooley on 12-10-2024 Urine Random Microalbumin 17.7 mg/L NO RANGE EST. [facility] Urine albumin/creatinine rat io for detection of microalbuminuriaOrdered By: Ron Cooley on 12-10-2024 Urine Microalbumin/Creatinine Ratio 17.0 mg/g CRE <30 [facility] Urine creatinine measurement (mass/volume)Ordered By: Ron Cooley on 12-10-2024 Creatinine (U) [Mass/Vol] 104.00 mg/dL NO RANGE EST. [facility] Brain/Head without Contrasto n 12-05-2024 Brain/Head without Contrast [facility] [address] [place], [place] [address] Brain/Head without Contrast MR#: [id number] Acct: [id number] Name: KEVIN GRIFFITH Rep #: [id number] : 1945 M 79 From: Siva Horton DO PCP: Dr. Ron Cooley MD Status: PRE ER Study: Brain/Head without Contrast Date of Exam: 11/20 05/14 Exam# [id number] Ordering Dr: [place] [id number] STUDY: CT BRAIN WITHOUT CONTRAST REASON FOR [...] Ron Cooley MD; Dr. Estuardo Mccormack DO Express Manager: Signed Normal [facility] Emergency Department Summary on 12-05-2024 Emergency Department Summary [facility] Medical Records Department [address] [place] [address] Emergency Department Summary 12/05/24 MR#: [id number] Acct: [id number] Name: KEVIN GRIFFITH Rep #: [id number] : 1945 79 From: Estuardo Mccomrack DO PCP: Dr. Ron Cooley MD Status:DEP ER Location: ED HPI HPI - Fall History of Present Illness Chief Complaint: Fall [facility] Medical History Parkinson's disease Right bundle branch [...] raccoon e (more content not included)... Normal [facility] Spine Cervical without Contr ason 12-05-2024 Spine Cervical without Contras [facility] [address] [place], [place] [address] Spine Cervical without Contras MR#: [id number] Acct: [id number] Name: KEVIN GRIFFITH Rep #: [id number] : 1945 M 79 From: Siva Horton DO PCP: Dr. Ron Cooley MD Status: REG ER Study: Spine Cervical without Contras Date of Exam: 0 12/05/24 Exam# [id number] Ordering Dr: [place] [id number] STUDY: CT CERVICAL SPINE WITHOUT CONTRAST REASON [...] 18:32 EST Reading Location ID and State: [facility] [place] Tel [phone], Service support , CC: Dr. Ron Cooley MD; Dr. Estuardo Mccormack DO Express Manager: Signed Normal [facility] 34-IG-Vfoizwr DOrdered By: Chetan Cooley on 12-04-2024 Vitamin D 25-Hydroxy 47.5 ng/mL [facility] Comment on above: Vitamin D 25(OH) Sta tus Range Deficiency <20 ng/mL (50nmol/L) Insufficiency 20 - 30 ng/mL (50 - 75 nmol/L) Sufficiency 30 - 100 ng/mL (75 - 250 nmol/L) Toxicity >100 ng/mL (>250 nmol/L) Absolute lymphocyte countOrd ered By: Ron Cooley on 12-04-2024 Lymphocytes Auto (Unsp spec) [#/Vol] 3.42 10*3/uL 0.83-4.51 [facility] Absolute neutrophil countOrd ered By: Ron Cooley on 12-04-2024 Neutrophils (Bld) [#/Vol] 5.9 10*3/uL 2.0-7.7 [facility] Albumin to globulin ratioOrd ered By: Ron Cooley on 12-04-2024 Albumin/Globulin [Mass ratio] 1.0 {ratio} 0.9-2.4 [facility] Automated lymphocyte count a s percentage of total leukocytesOrdered By: Ron Cooley on 12-04-2024 Lymphocytes/100 WBC Auto (Unsp spec) 31.5 % - [facility] Basophil percentageOrdered B y: Ron Cooley on 12-04-2024 Basophils/100 WBC (Bld) 1.2 % High 0-1 [facility] Bilirubin, totalOrdered By: Rno Cooley on 12-04-2024 Bilirubin [Mass/Vol] 0.80 mg/dL 0.20-1.00 [facility] Comment on above: For patients on eltr ombopag therapy, use of [employer]ension [place] TBIL is not recommended. Blood urea nitrogen (BUN)/cr eatinine ratioOrdered By: Ron Cooley on 12-04-2024 Urea nitrogen/Creatinine [Mass ratio] 19.7 mg/mg 10-20 [facility] CBC W/Diff, Automatedon 11-20 Absolute Lymph 3.42 X10 3/uL Normal 0.83-4.51 [facility] Comment on above: Order Comment: Order Date: 12/04/24Order Info: 0184-1 - CBCD Performed By: #### L 501.9985, L501.5200, L500.4050, L100.0100, L500.4100, L506.1000 ####[facility] [address] [place], [address] Absolute Neut 5.9 X10 3/uL Normal 2.0-7.7 [facility] Comment on above: Order Comment: Order Date: 12/04/24Order Info: 0184-1 - CBCD Performed By: #### L 501.9985, L501.5200, L500.4050, L100.0100, L500.4100, L506.1000 ####[facility] [address] [place], [address] Basophils/100 WBC (Bld) 1.2 % High 0-1 [facility] Comment on above: Order Comment: Order Date: 12/04/24Order Info: 0184-1 - CBCD Performed By: #### L 501.9985, L501.5200, L500.4050, L100.0100, L500.4100, L506.1000 ####[facility] [address] [place], [address] Eosinophils/100 WBC (Bld) 1.8 % Normal 0-5 [facility] Comment on above: Order Comment: Order Date: 12/04/24Order Info: 0184-1 - CBCD Performed By: #### L 501.9985, L501.5200, L500.4050, L100.0100, L500.4100, L506.1000 ####[facility] [address] [place], [address] Erythrocyte distribution width (RBC) [Ratio] 13.4 % Normal 11.6-14.6 [facility] Comment on above: Order Comment: Order Date: 12/04/24Order Info: 0184-1 - CBCD Performed By: #### L 501.9985, L501.5200, L500.4050, L100.0100, L500.4100, L506.1000 ####[facility] [address] [place], [address] Hematocrit (Bld) [Volume fraction] 47.1 % Normal 40-54 [facility] Comment on above: Order Comment: Order Date: 12/04/24Order Info: 0184-1 - CBCD Performed By: #### L 501.9985, L501.5200, L500.4050, L100.0100, L500.4100, L506.1000 ####[facility] [address] [place], [address] Hemoglobin (Bld) [Mass/Vol] 15.4 g/dL Normal 13.0-16.5 [facility] Comment on above: Order Comment: Order Date: 12/04/24Order Info: 0184-1 - CBCD Performed By: #### L 501.9985, L501.5200, L500.4050, L100.0100, L500.4100, L506.1000 ####[facility] [address] [place], [address] IG% 0.600 Normal 0.0-0.9 [facility] Comment on above: Order Comment: Order Date: 12/04/24Order Info: 0184-1 - CBCD Result Comment: IG% - Immature Granulocytes (promyelocytes, myelocytes and metamyelocytes) > 1% indicates that a LEFT SHIFT is Present. Performed By: #### L 501.9985, L501.5200, L500.4050, L100.0100, L500.4100, L506.1000 ####[facility] [address] [place], [address] Lymphocytes/100 WBC (Bld) 31.5 % Normal 19-41 [facility] Comment on above: Order Comment: Order Date: 12/04/24Order Info: 0184-1 - CBCD Performed By: #### L 501.9985, L501.5200, L500.4050, L100.0100, L500.4100, L506.1000 ####[facility] [address] [place], [address] MCH (RBC) [Entitic mass] 30.4 pg Normal 27.0-32.0 [facility] Comment on above: Order Comment: Order Date: 12/04/24Order Info: 0184-1 - CBCD Performed By: #### L 501.9985, L501.5200, L500.4050, L100.0100, L500.4100, L506.1000 ####[facility] [address] [place], [address] MCHC (RBC) [Mass/Vol] 32.7 g/dL Normal 32-36 [facility] Comment on above: Order Comment: Order Date: 12/04/24Order Info: 0184-1 - CBCD Performed By: #### L 501.9985, L501.5200, L500.4050, L100.0100, L500.4100, L506.1000 ####[facility] [address] [place], [address] MCV (RBC) [Entitic vol] 92.9 fL Normal 80-94 [facility] Comment on above: Order Comment: Order Date: 12/04/24Order Info: 0184-1 - CBCD Performed By: #### L 501.9985, L501.5200, L500.4050, L100.0100, L500.4100, L506.1000 ####[facility] [address] [place], [address] Monocytes/100 WBC (Bld) 10.8 % High 0-10 [facility] Comment on above: Order Comment: Order Date: 12/04/24Order Info: 0184-1 - CBCD Performed By: #### L 501.9985, L501.5200, L500.4050, L100.0100, L500.4100, L506.1000 ####[facility] [address] [place], [address] Neutrophils/100 WBC (Bld) 54.1 % Normal 47-70 [facility] Comment on above: Order Comment: Order Date: 12/04/24Order Info: 0184-1 - CBCD Performed By: #### L 501.9985, L501.5200, L500.4050, L100.0100, L500.4100, L506.1000 ####[facility] [address] [place], [address] Nucleated RBC (Bld) [#/Vol] 0 10*3/uL Normal 0-5 [facility] Comment on above: Order Comment: Order Date: 12/04/24Order Info: 0184-1 - CBCD Performed By: #### L 501.9985, L501.5200, L500.4050, L100.0100, L500.4100, L506.1000 ####[facility] [address] [place], [address] Platelet mean volume (Bld) [Entitic vol] 10.8 fL Normal 6.2-12.0 [facility] Comment on above: Order Comment: Order Date: 12/04/24Order Info: 0184-1 - CBCD Performed By: #### L 501.9985, L501.5200, L500.4050, L100.0100, L500.4100, L506.1000 ####[facility] [address] [place], [address] Platelets (Bld) [#/Vol] 281 10*3/uL Normal 150-450 [facility] Comment on above: Order Comment: Order Date: 12/04/24Order Info: 0184-1 - CBCD Performed By: #### L 501.9985, L501.5200, L500.4050, L100.0100, L500.4100, L506.1000 ####[facility] [address] [place], [address] RBC (Bld) [#/Vol] 5.07 10*6/uL Normal 4.6-6.2 [facility] Comment on above: Order Comment: Order Date: 12/04/24Order Info: 0184-1 - CBCD Performed By: #### L 501.9985, L501.5200, L500.4050, L100.0100, L500.4100, L506.1000 ####[facility] [address] [place], [address] RDW SD 45.1 fl High 35.1-43.9 [facility] Comment on above: Order Comment: Order Date: 12/04/24Order Info: 0184-1 - CBCD Performed By: #### L 501.9985, L501.5200, L500.4050, L100.0100, L500.4100, L506.1000 ####[facility] [address] [place], [address] WBC (Bld) [#/Vol] 10.9 10*3/uL Normal 4.4-11.0 [facility] Comment on above: Order Comment: Order Date: 12/04/24Order Info: 0184-1 - CBCD Performed By: #### L 501.9985, L501.5200, L500.4050, L100.0100, L500.4100, L506.1000 ####[facility] [address] [place], [address] Carbon dioxide measurementOr dered By: Ron Cooley on 12-04-2024 CO2 [Moles/Vol] 29.0 mmol/L 21.0-32.0 [facility] Chloride measurementOrdered By: Rno Cooley on 12-04-2024 Chloride [Moles/Vol] 105 mmol/L 98-107 [facility] Comprehensive Metabolic Prof ilon 12-04-2024 Albumin [Mass/Vol] 3.7 g/dL Normal 3.2-5.0 [facility] Comment on above: Order Comment: Order Date: 12/04/24Order Info: [id number] - CMPOrder Info: [id number] - LIPIDOrder Info: [id number] - MG Performed By: #### L 501.9985, L501.5200, L500.4050, L100.0100, L500.4100, L506.1000 ####[facility] [address] [place], [address] Albumin/Globulin [Mass ratio] 1.0 {ratio} Normal 0.9-2.4 [facility] Comment on above: Order Comment: Order Date: 12/04/24Order Info: [id number] - CMPOrder Info: [id number] - LIPIDOrder Info: [id number] - MG Performed By: #### L 501.9985, L501.5200, L500.4050, L100.0100, L500.4100, L506.1000 ####[facility] [address] [place], [address] ALK P 91 U/L Normal 45-117 [facility] Comment on above: Order Comment: Order Date: 12/04/24Order Info: [id number] - CMPOrder Info: [id number] - LIPIDOrder Info: [id number] - MG Performed By: #### L 501.9985, L501.5200, L500.4050, L100.0100, L500.4100, L506.1000 ####[facility] [address] [place], [address] ALT [Catalytic activity/Vol] 11 U/L Low 16-61 [facility] Comment on above: Order Comment: Order Date: 12/04/24Order Info: [id number] - CMPOrder Info: [id number] - LIPIDOrder Info: [id number] - MG Performed By: #### L 501.9985, L501.5200, L500.4050, L100.0100, L500.4100, L506.1000 ####[facility] [address] [place], [address] AST [Catalytic activity/Vol] 13 U/L Low 15-37 [facility] Comment on above: Order Comment: Order Date: 01/15/25Order Info: [id number] - CMPOrder Info: [id number] - LIPIDOrder Info: [id number] - MG Performed By: #### L 501.9985, L501.5200, L500.4050, L100.0100, L500.4100, L506.1000 ####[facility] [address] [place], [address] Bilirubin [Mass/Vol] 0.80 mg/dL Normal 0.20-1.00 [facility] Comment on above: Order Comment: Order Date: 12/04/24Order Info: [id number] - CMPOrder Info: [id number] - LIPIDOrder Info: [id number] - MG Result Comment: For patients on eltrombopag therapy, use of Dimension [place] TBIL is not recommended. Performed By: #### L 501.9985, L501.5200, L500.4050, L100.0100, L500.4100, L506.1000 ####[facility] [address] [place], [address] BUN/CRE 19.7 RATIO Normal 10-20 [facility] Comment on above: Order Comment: Order Date: 12/04/24Order Info: [id number] - CMPOrder Info: [id number] - LIPIDOrder Info: [id number] - MG Performed By: #### L 501.9985, L501.5200, L500.4050, L100.0100, L500.4100, L506.1000 ####[facility] [address] [place], [address] CA,Total 9.4 mg/dL Normal 8.5-10.1 [facility] Comment on above: Order Comment: Order Date: 12/04/24Order Info: [id number] - CMPOrder Info: [id number] - LIPIDOrder Info: [id number] - MG Performed By: #### L 501.9985, L501.5200, L500.4050, L100.0100, L500.4100, L506.1000 ####[facility] [address] [place], [address] Chloride [Moles/Vol] 105 mmol/L Normal 98-107 [facility] Comment on above: Order Comment: Order Date: 12/04/24Order Info: [id number] - CMPOrder Info: [id number] - LIPIDOrder Info: [id number] - MG Performed By: #### L 501.9985, L501.5200, L500.4050, L100.0100, L500.4100, L506.1000 ####[facility] [address] [place], [address] CO2 [Moles/Vol] 29.0 mmol/L Normal 21.0-32.0 [facility] Comment on above: Order Comment: Order Date: 12/04/24Order Info: [id number] - CMPOrder Info: [id number] - LIPIDOrder Info: [id number] - MG Performed By: #### L 501.9985, L501.5200, L500.4050, L100.0100, L500.4100, L506.1000 ####[facility] [address] [place], [address] Creatinine [Mass/Vol] 0.96 mg/dL Normal 0.70-1.30 [facility] Comment on above: Order Comment: Order Date: 12/04/24Order Info: [id number] - CMPOrder Info: [id number] - LIPIDOrder Info: [id number] - MG Result Comment: The validity of the calculated GFR GFRAA in patients over 70 years has not been determined. Clinical correlation is essential. Performed By: #### L 501.9985, L501.5200, L500.4050, L100.0100, L500.4100, L506.1000 ####[facility] [address] [place], [address] EST GFR - AA 97 mL/min Normal >60 [facility] Comment on above: Order Comment: Order Date: 12/04/24Order Info: [id number] - CMPOrder Info: [id number] - LIPIDOrder Info: [id number] - MG Result Comment: Afri can Taiwanese GFR Calc Performed By: #### L 501.9985, L501.5200, L500.4050, L100.0100, L500.4100, L506.1000 ####[facility] [address] [place], [address] GAP 5 Normal 5-15 [facility] Comment on above: Order Comment: Order Date: 12/04/24Order Info: [id number] - CMPOrder Info: [id number] - LIPIDOrder Info: [id number] - MG Performed By: #### L 501.9985, L501.5200, L500.4050, L100.0100, L500.4100, L506.1000 ####[facility] [address] [place], [place], [address](947) GFR/1.73 sq M.predicted among non-blacks MDRD (S/P/Bld) [Vol rate/Area] 80 mL/min/{1.73_m2} Normal >60 [facility] Comment on above: Order Comment: Order Date: 12/04/24Order Info: [id number] - CMPOrder Info: [id number] - LIPIDOrder Info: [id number] - MG Result Comment: Non- GFR Calc Performed By: #### L 501.9985, L501.5200, L500.4050, L100.0100, L500.4100, L506.1000 ####[facility] [address] [place], [address] Globulin (S) [Mass/Vol] 3.7 g/dL Normal 2.2-4.2 [facility] Comment on above: Order Comment: Order Date: 12/04/24Order Info: [id number] - CMPOrder Info: [id number] - LIPIDOrder Info: [id number] - MG Performed By: #### L 501.9985, L501.5200, L500.4050, L100.0100, L500.4100, L506.1000 ####[facility] [address] [place], [address] Glucose [Mass/Vol] 48 mg/dL Low 74-106 [facility] Comment on above: Order Comment: Order Date: 12/04/24Order Info: [id number] - CMPOrder Info: [id number] - LIPIDOrder Info: [id number] - MG Result Comment: Gluc ose result less than 50 mg/dL suggests HYPOGLYCEMIA. Performed By: #### L 501.9985, L501.5200, L500.4050, L100.0100, L500.4100, L506.1000 ####[facility] [address] [place], [address] Potassium [Moles/Vol] 3.9 mmol/L Normal 3.5-5.1 [facility] Comment on above: Order Comment: Order Date: 12/04/24Order Info: [id number] - CMPOrder Info: [id number] - LIPIDOrder Info: [id number] - MG Performed By: #### L 501.9985, L501.5200, L500.4050, L100.0100, L500.4100, L506.1000 ####[facility] [address] [place], [address] Sodium [Moles/Vol] 139 mmol/L Normal 136-145 [facility] Comment on above: Order Comment: Order Date: 12/04/24Order Info: [id number] - CMPOrder Info: [id number] - LIPIDOrder Info: [id number] - MG Performed By: #### L 501.9985, L501.5200, L500.4050, L100.0100, L500.4100, L506.1000 ####[facility] [address] [place], [address] T PROT 7.4 g/dL Normal 6.4-8.2 [facility] Comment on above: Order Comment: Order Date: 12/04/24Order Info: [id number] - CMPOrder Info: [id number] - LIPIDOrder Info: [id number] - MG Performed By: #### L 501.9985, L501.5200, L500.4050, L100.0100, L500.4100, L506.1000 ####[facility] [address] [place], [address] Urea nitrogen [Mass/Vol] 19 mg/dL High 7-18 [facility] Comment on above: Order Comment: Order Date: 12/04/24Order Info: [id number] - CMPOrder Info: [id number] - LIPIDOrder Info: [id number] - MG Performed By: #### L 501.9985, L501.5200, L500.4050, L100.0100, L500.4100, L506.1000 ####[facility] [address] [place], [address] Eosinophil percentageOrdered By: Ron Cooley on 12-04-2024 Eosinophils/100 WBC (Bld) 1.8 % 0-5 [facility] Erythrocyte distribution wid th ratioOrdered By: Ron Cooley on 12-04-2024 Erythrocyte distribution width (RBC) [Ratio] 13.4 % 11.6-14.6 [facility] Erythrocyte distribution wid th standard deviationOrdered By: Ron Cooley on 12-04-2024 Erythrocyte distribution width (RBC) [Entitic vol] 45.1 fL High 35.1-43.9 [facility] Erythrocyte distribution width (RBC) [Ratio] 45.1 fl High 35.1-43.9 [facility] Estimated glomerular filtrat ion rate (GFR) AmericanOrdered By: Ron Cooley on 12-04-2024 Estimated GFR (MDRD) Amer 97 mL/min >60 [facility] Comment on above: GFR Calc Glomerular filtration rate ( GFR) estimationOrdered By: Ron Cooley on 12-04-2024 Estimated GFR (MDRD) Non-Af Amer 80 mL/min >60 [facility] Comment on above: Non- GFR Calc GFR/1.73 sq M.predicted among non-blacks MDRD (S/P/Bld) [Vol rate/Area] 80 mL/min/{1.73_m2} >60 [facility] Comment on above: Non- GFR Calc Glucose measurementOrdered B y: Ron Cooley on 12-04-2024 Glucose [Mass/Vol] 48 mg/dL Low 74-106 [facility] Comment on above: Glucose result less than 50 mg/dL suggests HYPOGLYCEMIA. Hematocrit Auto (Bld) [Volum e fraction]Ordered By: Ron Cooley on 12-04-2024 Hematocrit (Bld) [Volume fraction] 47.1 % 40-54 [facility] Hemoglobin A1con 12-04-2024 HbA1c (Bld) [Mass fraction] 6.5 % High 3.8-5.6 [facility] Comment on above: Order Comment: Order Date: 12/04/24Order Info: [id number] - A1C Result Comment: Norm al < 5.7 % Prediabetic 5.7 - 6.4 % Diabetic >or= 6.5 % Please note range changes. Performed By: #### L 501.9985, L501.5200, L500.4050, L100.0100, L500.4100, L506.1000 ####[facility] [address] [place], [address] Hemoglobin A1c percentageOrd ered By: Ron Cooley on 12-04-2024 HbA1c (Bld) [Mass fraction] 6.5 % High 3.8-5.6 [facility] Comment on above: Normal < 5.7 % Predi abetic 5.7 - 6.4 % Diabetic >or= 6.5 % Please note range changes. Hemoglobin measurementOrdere d By: Ron Cooley on 12-04-2024 Hemoglobin (Bld) [Mass/Vol] 15.4 g/dL 13.0-16.5 [facility] High density lipoprotein (HD L) measurementOrdered By: Ron Cooley on 12-04-2024 Cholesterol in HDL [Mass/Vol] 45 mg/dL >40 [facility] Comment on above: The drugs N-Acetylcy steine and Metamizole may falsely depress this assay. Reference Range HDL <40 mg/dL Low HDL Cholesterol HDL >or= 60 mg/dL High HDL Cholesterol Immature granulocytes/100 WB C Auto (Bld)Ordered By: Ron Cooley on 12-04-2024 Immature granulocytes/100 WBC (Bld) 0.600 % 0.0-0.9 [facility] Comment on above: IG% - Immature Granu locytes (promyelocytes, myelocytes and metamyelocytes) > 1% indicates that a LEFT SHIFT is Present. Laboratory - Chemistry and C hemistry - challengeOrdered By: Ron Cooley on 12-04-2024 AST [Catalytic activity/Vol] 13 U/L Low 15- [facility] Lipid Profileon 12-04-2024 Cholesterol [Mass/Vol] 192 mg/dL Normal 200 [facility] Comment on above: Order Comment: Order Date: 12/04/24Order Info: [id number] - CMPOrder Info: [id number] - LIPIDOrder Info: [id number] - MG Result Comment: <200 mg/dL Desirable 200-240 mg/dL Borderline >240 mg/dL High Risk Performed By: #### L 501.9985, L501.5200, L500.4050, L100.0100, L500.4100, L506.1000 ####[facility] [address] [place], [address] Cholesterol in HDL [Mass/Vol] 45 mg/dL Normal [facility] Comment on above: Order Comment: Order Date: 12/04/24Order Info: [id number] - CMPOrder Info: [id number] - LIPIDOrder Info: [id number] - MG Result Comment: The drugs N-Acetylcysteine and Metamizole may falsely depress this assay. Reference Range HDL <40 mg/dL Low HDL Cholesterol HDL >or= 60 mg/dL High HDL Cholesterol Performed By: #### L 501.9985, L501.5200, L500.4050, L100.0100, L500.4100, L506.1000 ####[facility] [address] [place], [address] Cholesterol in LDL [Mass/Vol] 116 mg/dL Normal 0-130 [facility] Comment on above: Order Comment: Order Date: 12/04/24Order Info: [id number] - CMPOrder Info: [id number] - LIPIDOrder Info: [id number] - MG Performed By: #### L 501.9985, L501.5200, L500.4050, L100.0100, L500.4100, L506.1000 ####[facility] [address] [place], [address] Cholesterol in VLDL [Mass/Vol] 31 mg/dL Normal 5-40 [facility] Comment on above: Order Comment: Order Date: 12/04/24Order Info: [id number] - CMPOrder Info: [id number] - LIPIDOrder Info: [id number] - MG Performed By: #### L 501.9985, L501.5200, L500.4050, L100.0100, L500.4100, L506.1000 ####[facility] [address] [place], [place], [address] Triglyceride [Mass/Vol] 153 mg/dL Normal [facility] Comment on above: Order Comment: Order Date: 12/04/24Order Info: [id number] - CMPOrder Info: [id number] - LIPIDOrder Info: [id number] - MG Result Comment: The drugs N-Acetylcysteine and Metamizole may falsely depress this assay. Serum Triglycerides Reference Interval Normal <150 mg/dL Borderline high 150 - 199 mg/dL High 200 - 499 mg/dL Very High > or = 500 mg/dL Performed By: #### L 501.9985, L501.5200, L500.4050, L100.0100, L500.4100, L506.1000 ####[facility] [address] [place], [place], [address] Low density lipoprotein (LDL ) cholesterol measurementOrdered By: Ron Cooley on 12-04-2024 Cholesterol in LDL [Mass/Vol] 116 mg/dL 0-130 [facility] Lymphocytes Auto (Unsp spec) [#/Vol]Ordered By: Ron Cooley on 12-04-2024 Lymphocytes (Bld) [#/Vol] 3.42 10*3/uL 0.83-4.5 1 [facility] Lymphocytes/100 WBC Auto (Un sp spec)Ordered By: Ron Cooley on 12-04-2024 Lymphocytes/100 WBC (Bld) 31.5 % 19-41 [facility] MCV (mean corpuscular volume ) determinationOrdered By: Ron Cooley on 12-04-2024 MCV (RBC) [Entitic vol] 92.9 fL 80-94 [facility] Magnesiumon 12-04-2024 Magnesium [Mass/Vol] 2.0 mg/dL Normal 1.6-2.6 [facility] Comment on above: Order Comment: Order Date: 12/04/24Order Info: [id number] - CMPOrder Info: [id number] - LIPIDOrder Info: [id number] - MG Performed By: #### L 501.9985, L501.5200, L500.4050, L100.0100, L500.4100, L506.1000 ####[facility] [address] [facility], [address] Magnesium measurementOrdered By: Ron Cooley on 12-04-2024 Magnesium [Mass/Vol] 2.0 mg/dL 1.6-2.6 [facility] Mean corpuscular hemoglobin (MCH) determinationOrdered By: Ron Cooley on 12-04-2024 MCH (RBC) [Entitic mass] 30.4 pg 27.0-32.0 [facility] Mean corpuscular hemoglobin concentration (MCHC) determinationOrdered By: Ron Cooley on 12-04-2024 MCHC (RBC) [Mass/Vol] 32.7 g/dL 32-36 [facility] Mean platelet volume determi nationOrdered By: Ron Cooley on 12-04-2024 Platelet mean volume (Bld) [Entitic vol] 10.8 fL 6.2-12.0 [facility] Monocyte percentageOrdered B y: Ron Cooley on 12-04-2024 Monocytes/100 WBC (Bld) 10.8 % High 0-10 [facility] Neutrophil percentageOrdered By: Ron Cooley on 12-04-2024 Neutrophils/100 WBC (Bld) 54.1 % 47-70 [facility] Nucleated red blood cell per centageOrdered By: Ron Cooley on 12-04-2024 Nucleated RBC/100 WBC (Bld) [Ratio] 0 % 0-5 [facility] Platelet countOrdered By: Rimma Cooley on 12-04-2024 Platelets (Bld) [#/Vol] 281 10*3/uL 150-450 [facility] Potassium measurementOrdered By: Ron Cooley on 12-04-2024 Potassium [Moles/Vol] 3.9 mmol/L 3.5-5.1 [facility] RBC Auto (Bld) [#/Vol]Ordere d By: Ron Cooley on 12-04-2024 RBC (Bld) [#/Vol] 5.07 10*6/uL 4.6-6.2 [facility] Serum anion gap measurementO rdered By: Ron Cooley on 12-04-2024 Anion gap [Moles/Vol] 5 mmol/L 5-15 [facility] Serum globulin measurementOr dered By: Ron Cooley on 12-04-2024 Globulin (S) [Mass/Vol] 3.7 g/dL 2.2-4.2 [facility] Serum or plasma alanine max otransferase (ALT) measurementOrdered By: Ron Cooley on 12-04-2024 ALT [Catalytic activity/Vol] 11 U/L Low 16-61 [facility] Serum or plasma albumin walt urement (mass/volume)Ordered By: Ron Cooley on 12-04-2024 Albumin [Mass/Vol] 3.7 g/dL 3.2-5.0 [facility] Serum or plasma alkaline sarah sphatase measurementOrdered By: Ron Cooley on 12-04-2024 ALP [Catalytic activity/Vol] 91 U/L 45-117 [facility] Serum or plasma calcium walt urement (mass/volume)Ordered By: Ron Cooley on 12-04-2024 Calcium [Mass/Vol] 9.4 mg/dL 8.5-10.1 [facility] Serum or plasma cholesterol measurement (mass/volume)Ordered By: Ron Cooley on 12-04-2024 Cholesterol [Mass/Vol] 192 mg/dL <[address] [facility] Comment on above: <200 mg/dL Desirable 200-240 mg/dL Borderline >240 mg/dL High Risk Serum or plasma creatinine m easurement (mass/volume)Ordered By: Ron Cooley on 12-04-2024 Creatinine [Mass/Vol] 0.96 mg/dL 0.70-1.30 [facility] Comment on above: The validity of the calculated GFR & GFRAA in patients over 70 years has not been determined. Clinical correlation is essential. Serum or plasma urea nitroge n measurement (mass/volume)Ordered By: Ron Cooley on 12-04-2024 Urea nitrogen [Mass/Vol] 19 mg/dL High 7-18 [facility] Sodium levelOrdered By: Ron Cooley on 12-04-2024 Sodium [Moles/Vol] 139 mmol/L 136-145 [facility] Total proteinOrdered By: Kwabena Cooley on 12-04-2024 Protein [Mass/Vol] 7.4 g/dL 6.4-8.2 [facility] Triglycerides measurementOrd ered By: Ron Cooley on 12-04-2024 Triglyceride [Mass/Vol] 153 mg/dL <199 [facility] Comment on above: The drugs N-Acetylcy steine and Metamizole may falsely depress this assay.Serum Triglycerides Reference Interval Normal <150 mg/dL Borderline high 150 - 199 mg/dL High 200 - 499 mg/dL Very High > or = 500 mg/dL Very low density lipoprotein (VLDL) cholesterol measurementOrdered By: Ron Cooley on 12-04-2024 Very low density lipoprotein (VLDL) cholesterol measurement 31 mg/dL 5-40 [facility] VLDL Cholesterol 31 mg/dL 5-40 [facility] Vitamin D,25 Hydroxyon 12-04 Vitamin D 25-OH 47.5 ng/mL Normal [facility] Comment on above: Order Comment: Order Date: 12/04/24Order Info: [id number] - [id number] Result Comment: Lisa min D 25(OH) Status Range Deficiency <20 ng/mL (50nmol/L) Insufficiency 20 - 30 ng/mL (50 - 75 nmol/L) Sufficiency 30 - 100 ng/mL (75 - 250 nmol/L) Toxicity >100 ng/mL (>250 nmol/L) Performed By: #### L 501.9985, L501.5200, L500.4050, L100.0100, L500.4100, L506.1000 ####[facility] [address] [place], [address] White blood cell (WBC) count Ordered By: Ron Cooley on 12-04-2024 WBC (Bld) [#/Vol] 10.9 10*3/uL 4.4-11.0 [facility] Chest PA and Lateralon 12-02 Chest PA and Lateral [facility] [address] [place] [address] Chest PA and Lateral MR#: [id number] Acct: [id number] Name: KEVIN GRIFFITH Rep #: [id number] : 1945 M 79 From: José Luis Nicolas PCP: Dr. Ron Cooley MD Status: [facility] Study: Chest PA and Lateral Date of Exam: 12/02/24 Exam# [id number] Ordering [place]: [place] [id number] INDICATION: HYPOXEMIA EXAMINATION/TECHNIQUE: X-RAY - XR Chest [...] Ron Cooley MD; Dr. Jose Perez MD Express Manager: Signed Normal [facility] AST(SGOT)on 10-28-2024 AST [Catalytic activity/Vol] 9 U/L Low 15-37 [facility] Comment on above: Performed By: #### L 501.9985, L500.2500, L501.4405, L3100.1725, L503.0106, L501.4100 #### [facility] [address] [place], [address] Alanine Aminotransferas (SGP T)on 10-28-2024 ALT [Catalytic activity/Vol] 8 U/L Low 16-61 [facility] Comment on above: Performed By: #### L 501.9985, L500.2500, L501.4405, L3100.1725, L503.0106, L501.4100 #### [facility] [address] [place], [address] Basic Metabolic Profile (BMP )on 10-28-2024 BUN/CRE 26.5 RATIO High 10-20 [facility] Comment on above: Performed By: #### L 501.9985, L500.2500, L501.4405, L3100.1725, L503.0106, L501.4100 #### [facility] [address] [place], [address] CA,Total 9.3 mg/dL Normal 8.5-10.1 [facility] Comment on above: Performed By: #### L 501.9985, L500.2500, L501.4405, L3100.1725, L503.0106, L501.4100 #### [facility] [address] [place], [address] Chloride [Moles/Vol] 105 mmol/L Normal 98-107 [facility] Comment on above: Performed By: #### L 501.9985, L500.2500, L501.4405, L3100.1725, L503.0106, L501.4100 #### [facility] [address] [place], [address] CO2 [Moles/Vol] 31.0 mmol/L Normal 21.0-32.0 [facility] Comment on above: Performed By: #### L 501.9985, L500.2500, L501.4405, L3100.1725, L503.0106, L501.4100 #### [facility] [address] [place], [address] Creatinine [Mass/Vol] 0.91 mg/dL Normal 0.70-1.30 [facility] Comment on above: Result Comment: The validity of the calculated GFR GFRAA in patients over 70 years has not been determined. Clinical correlation is essential. Performed By: #### L 501.9985, L500.2500, L501.4405, L3100.1725, L503.0106, L501.4100 #### [facility] [address] [place], [address] EST GFR - AA 103 mL/min Normal >60 [facility] Comment on above: Result Comment: Afri can Taiwanese GFR Calc Performed By: #### L 501.9985, L500.2500, L501.4405, L3100.1725, L503.0106, L501.4100 #### [facility] [address] [place], [address] GAP 5 Normal 5-15 [facility] Comment on above: Performed By: #### L 501.9985, L500.2500, L501.4405, L3100.1725, L503.0106, L501.4100 #### [facility] [address] [place], [address] GFR/1.73 sq M.predicted among non-blacks MDRD (S/P/Bld) [Vol rate/Area] 86 mL/min/{1.73_m2} Normal >60 [facility] Comment on above: Result Comment: Non- GFR Calc Performed By: #### L 501.9985, L500.2500, L501.4405, L3100.1725, L503.0106, L501.4100 #### [facility] [address] [place], [address] Glucose [Mass/Vol] 111 mg/dL High 74-106 [facility] Comment on above: Result Comment: Fast ing Glucose result from 100 to 125 mg/dL suggests IMPAIRED HOMEOSTASIS per A.D.A. criteria. Performed By: #### L 501.9985, L500.2500, L501.4405, L3100.1725, L503.0106, L501.4100 #### [facility] [address] [place], [address] Potassium [Moles/Vol] 3.4 mmol/L Low 3.5-5.1 [facility] Comment on above: Performed By: #### L 501.9985, L500.2500, L501.4405, L3100.1725, L503.0106, L501.4100 #### [facility] [address] [place], [address] Sodium [Moles/Vol] 142 mmol/L Normal 136-145 [facility] Comment on above: Performed By: #### L 501.9985, L500.2500, L501.4405, L3100.1725, L503.0106, L501.4100 #### [facility] [address] [place], [address] Urea nitrogen [Mass/Vol] 24 mg/dL High 7-18 [facility] Comment on above: Performed By: #### L 501.9985, L500.2500, L501.4405, L3100.1725, L503.0106, L501.4100 #### [facility] [address] [place], [place], [address] Blood urea nitrogen (BUN)/cr eatinine ratioOrdered By: Natasha Gregory on 10-28-2024 Urea nitrogen/Creatinine [Mass ratio] 26.5 mg/mg High 10-20 [facility] Carbon dioxide measurementOr dered By: Natasha Gregory on 10-28-2024 CO2 [Moles/Vol] 31.0 mmol/L 21.0-32.0 [facility] Chloride measurementOrdered By: Natasha Gregory on 10-28-2024 Chloride [Moles/Vol] 105 mmol/L 98-107 [facility] Estimated glomerular filtrat ion rate (GFR) AmericanOrdered By: Natasha Gregory on 10-28-2024 Estimated GFR (MDRD) Amer 103 mL/min >60 [facility] Comment on above: GFR Calc Glomerular filtration rate ( GFR) estimationOrdered By: Natasha Gregory on 10-28-2024 Estimated GFR (MDRD) Non-Af Amer 86 mL/min >60 [facility] Comment on above: Non- GFR Calc Glucose measurementOrdered B y: Natasha Gregory on 10-28-2024 Glucose [Mass/Vol] 111 mg/dL High 74-106 [facility] Comment on above: Fasting Glucose resu lt from 100 to 125 mg/dL suggests IMPAIRED HOMEOSTASIS per A.D.A. criteria. Hemoglobin A1con 10-28-2024 HbA1c (Bld) [Mass fraction] 6.4 % High 3.8-5.6 [facility] Comment on above: Result Comment: Norm al < 5.7 % Prediabetic 5.7 - 6.4 % Diabetic >or= 6.5 % Please note range changes. Performed By: #### L 501.9985, L500.2500, L501.4405, L3100.1725, L503.0106, L501.4100 #### [facility] [address] [place], [place], [address] Hemoglobin A1c percentageOrd ered By: Natasha Gregory on 10-28-2024 HbA1c (Bld) [Mass fraction] 6.4 % High 3.8-5.6 [facility] Comment on above: Normal < 5.7 % Predi abetic 5.7 - 6.4 % Diabetic >or= 6.5 % Please note range changes. Laboratory - Chemistry and C hemistry - challengeOrdered By: Natasha Gregory on 10-28-2024 AST [Catalytic activity/Vol] 9 U/L Low 15-37 [facility] Potassium measurementOrdered By: Natasha Gregory on 10-28-2024 Potassium [Moles/Vol] 3.4 mmol/L Low 3.5-5.1 [facility] Serum anion gap measurementO rdered By: Natasha Gregory on 10-28-2024 Anion gap [Moles/Vol] 5 mmol/L 5-15 [facility] Serum or plasma alanine max otransferase (ALT) measurementOrdered By: Natasha Gregory on 10-28-2024 ALT [Catalytic activity/Vol] 8 U/L Low 16-61 [facility] Serum or plasma calcium walt urement (mass/volume)Ordered By: Natasha Gregory on 10-28-2024 Calcium [Mass/Vol] 9.3 mg/dL 8.5-10.1 [facility] Serum or plasma creatinine m easurement (mass/volume)Ordered By: Natasha Gregory on 10-28-2024 Creatinine [Mass/Vol] 0.91 mg/dL 0.70-1.30 [facility] Comment on above: The validity of the calculated GFR & GFRAA in patients over 70 years has not been determined. Clinical correlation is essential. Serum or plasma urea nitroge n measurement (mass/volume)Ordered By: Natasha Gregory on 10-28-2024 Urea nitrogen [Mass/Vol] 24 mg/dL High 7-18 [facility] Sodium levelOrdered By: Josefina Gregory on 10-28-2024 Sodium [Moles/Vol] 142 mmol/L 136-145 [facility] Emergency Department Summary on 10-12-2024 Emergency Department Summary [facility] Medical Records Department [address] [place] [address] Emergency Department Summary 10/12/24 MR#: [id number] Acct: [id number] Name: KEVIN GRIFFITH Rep #: [id number] : 1945 79 From: Osman Farooq MD [...] has not been coughing up any blood. [facility] Medical History Parkinson's disease Right bundle branch [...] Reports m (more content not included)... Normal [facility] Ribs Uni Min 3V w/PA Cheston 10-12-2024 Ribs Uni Min 3V w/PA Chest [facility] Imaging Services [address] [place], [place] [address] Ribs Uni Min 3V w/PA Chest MR#: [id number] Acct: [id number] Name: KEVIN GRIFFITH Rep #: [id number] : 1945 M 79 From: Osman Ramos MD PCP: Dr. Ron Cooley MD Status: REG ER Study: Ribs Uni Min 3V w/PA Chest Date of Exam: 10/12 Exam# [id number] Ordering [place]: [place] [id number] STUDY: X-RAY - UNILATERAL RIBS ( LEFT [...] Osman Farooq MD; Dr. Ron Cooley MD Express Manager: Signed Normal [facility] Chest PA and Lateralon 09-27 Chest PA and Lateral [facility] Imaging Services [address] [place] [address] Chest PA and Lateral MR#: [id number] Acct: [id number] Name: KEVIN GRIFFITH Rep #: [id number] : 1945 M 79 From: Humberto Perez MD PCP: Dr. Ron Cooley MD Status: [facility] Study: Chest PA and Lateral Date of Exam: 09/27/24 Exam# [id number] [place]ing [place]: [place] [id number] STUDY: X-RAY CHEST REASON FOR EXAM: Male, [...] Ron Cooley MD; Dr. Imer Gee MD Express Manager: Signed Normal [facility] Modified Barium Swallow Stud yon 09-20-2024 Modified Barium Swallow Study [facility] Speech Pathology [address] [place] [address] Modified Barium Swallow Study MR#: [id number] Acct: [id number] Name: KEVIN GRIFFITH Rep #: [id number] : 1945 79 From: Chayito Barber Modified [...] swallow: Result: 1= does not enter airway [place] Thick Liquid via small single sip: cup: [...] a teaspoon or when prompted by the SEAT MENDER to take smaller sips. Poor bolus control and delayed pharyn (more content not included)... Normal [facility] MARIAH + Protein Elect, Serumon 09-05-2024 Albumin [Mass/Vol] 3.9 g/dL Normal 2.9-4.4 [facility] Comment on above: Order Comment: LUPE Deleon SEND RESULTS OF B12 AND FOLATES TO Performed By: #### L 501.9985, L500.2500, L501.4405, L3100.1725, L503.0106, L501.4100 #### [facility] [address] [place], [address] Albumin/Globulin [Mass ratio] 1.4 {ratio} Normal 0.7-1.7 [facility] Comment on above: Order Comment: LUPE Deleon SEND RESULTS OF B12 AND FOLATES TO Performed By: #### L 501.9985, L500.2500, L501.4405, L3100.1725, L503.0106, L501.4100 #### [facility] [address] [place], [address] OYHZC-6-OYOS 0.2 g/dL Normal 0.0-0.4 [facility] Comment on above: Order Comment: LUPE E SEND RESULTS OF B12 AND FOLATES TO Performed By: #### L 501.9985, L500.2500, L501.4405, L3100.1725, L503.0106, L501.4100 #### [facility] [address] [place], [address] XMEQJ-6-SODR 0.8 g/dL Normal 0.4-1.0 [facility] Comment on above: Order Comment: LUPE E SEND RESULTS OF B12 AND FOLATES TO Performed By: #### L 501.9985, L500.2500, L501.4405, L3100.1725, L503.0106, L501.4100 #### [facility] [address] [place], [address] BETA GLOBULIN 0.9 g/dL Normal 0.7-1.3 [facility] Comment on above: Order Comment: [facility] S[facility] RESULTS OF B12 AND FOLATES TO Performed By: #### L 501.9985, L500.2500, L501.4405, L3100.1725, L503.0106, L501.4100 #### [facility] [address] [place], [address] GAMMA GLOBULIN 0.9 g/dL Normal 0.4-1.8 [facility] Comment on above: Order Comment: [facility] SEND RESULTS OF B12 AND FOLATES TO Performed By: #### L 501.9985, L500.2500, L501.4405, L3100.1725, L503.0106, L501.4100 #### [facility] [address] [place], [address] Globulin (S) [Mass/Vol] 2.8 g/dL Normal 2.2-3.9 [facility] Comment on above: Order Comment: LUPE E SEND RESULTS OF B12 AND FOLATES TO Performed By: #### L 501.9985, L500.2500, L501.4405, L3100.1725, L503.0106, L501.4100 #### [facility] [address] [place], [address] MARIAH RESULT,S Comment Normal . [facility] Comment on above: Order Comment: PLEAS E SEND RESULTS OF B12 AND FOLATES TO Result Comment: No m onoclonality detected. Performed By: #### L 501.9985, L500.2500, L501.4405, L3100.1725, L503.0106, L501.4100 #### [facility] [address] [place], [address] IMMUNOGLOB A QN 171 mg/dL Normal 61-437 [facility] Comment on above: Order Comment: PLEAS E SEND RESULTS OF B12 AND FOLATES TO Performed By: #### L 501.9985, L500.2500, L501.4405, L3100.1725, L503.0106, L501.4100 #### [facility] [address] [place], [address] IMMUNOGLOB G QN 946 mg/dL Normal 603-1613 [facility] Comment on above: Order Comment: PLEAS E SEND RESULTS OF B12 AND FOLATES TO Performed By: #### L 501.9985, L500.2500, L501.4405, L3100.1725, L503.0106, L501.4100 #### [facility] [address] [place], [address] IMMUNOGLOB M QN 100 mg/dL Normal 15-143 [facility] Comment on above: Order Comment: PLEKRISTEN E SEND RESULTS OF B12 AND FOLATES TO Performed By: #### L 501.9985, L500.2500, L501.4405, L3100.1725, L503.0106, L501.4100 #### [facility] [address] [place], [place], [id number] M-Jose Antonio Not Observed Normal Not Observed [facility] Comment on above: Order Comment: LUPE Deleon SEND RESULTS OF B12 AND FOLATES TO Performed By: #### L 501.9985, L500.2500, L501.4405, L3100.1725, L503.0106, L501.4100 #### [facility] [address] [place], [address] NOTE: Comment Normal . [facility] Comment on above: Order Comment: LUPE Deleon SEND RESULTS OF B12 AND FOLATES TO Result Comment: Prot ein electrophoresis scan will follow via computer, mail, or concert pianist delivery. Performed By: #### L 501.9985, L500.2500, L501.4405, L3100.1725, L503.0106, L501.4100 #### [facility] [address] [place], [place], [address] Protein [Mass/Vol] 6.7 g/dL Normal 6.0-8.5 [facility] Comment on above: Order Comment: LUPE Deleon SEND RESULTS OF B12 AND FOLATES TO Performed By: #### L 501.9985, L500.2500, L501.4405, L3100.1725, L503.0106, L501.4100 #### [facility] [address], [address] Immunofixation Urineon 09-05 MARIAH Urine Comment Normal . [facility] Comment on above: Order Comment: LUPE Deleon SEND RESULTS OF B12 AND FOLATES TO Result Comment: No m onoclonality detected. Performed at: [address] [id number] Control Panel Builder: Vj Garcia PhD, Phone: [phone] Performed By: #### L 501.9985, L500.2500, L501.4405, L3100.1725, L503.0106, L501.4100 #### [facility] [address] [place], [address] Neurology Visit Reporton Neurology Visit Report [facility] [address] [place] [address] OFFICE VISIT Date of Service: 09/02/24 MR#: [id number] Acct: [id number] Name: KEVIN GRIFFITH Rep #: [id number] : 1945 Provider: Dr. Vick beltran MD Age/Sex: 79/M Location: [facility]. 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 Normal [facility] Ankle min 3 Viewson 08-07-20 Ankle min 3 Views [facility] [address] [place] [address] Ankle min 3 Views MR#: [id number] Acct: [id number] Name: KEVIN GRIFFITH Rep #: [id number] : 1945 79 From: Humberto Perez MD PCP: Dr. Ron Cooley MD Status: [facility] Study: Ankle min 3 Views Date of Exam: 08/07/24 Exam# [id number] Ordering [place]: [place] [id number] STUDY: X-RAY - LEFT ANKLE REASON FOR [...] ID and State: [facility] / [place] , Service support , CC: Dr. Ron Cooley MD Express Manager: Signed Normal [facility] Forearm 2 Viewson 08-07-2024 Forearm 2 Views [facility] [address] [place], [place] [address] Forearm 2 Views MR#: [id number] Acct: [id number] Name: KEVIN GRIFFITH Rep #: [id number] : 1945 M 79 From: Humberto Perez MD PCP: Dr. Ron Cooley MD Status: [facility] Study: Forearm 2 Views Date of Exam: 08/07/24 Exam# [id number] Ordering [place]: [place] [id number] STUDY: X-RAY - LEFT RADIUS AND ULNA [...] EDT , CC: Dr. Ron Cooley MD Express Manager: Signed Normal [facility] Wrist min 3 Viewson 08-07-20 Wrist min 3 Views [facility] [address] [place] [address] Wrist min 3 Views MR#: [id number] Acct: [id number] Name: KEVIN GRIFFITH Rep #: [id number] : 1945 M 79 From: Humberto Perez MD PCP: Dr. Ron Cooley MD Status: REG CLI Study: Wrist min 3 Views Date of Exam: 08/07/24 Exam# [id number] Ordering [place]: [place] [id number] STUDY: X-RAY - LEFT WRIST REASON FOR [...] EDT , CC: Dr. Ron Cooley MD Express Manager: Signed Normal [facility] AST(SGOT)on 06-27-2024 AST [Catalytic activity/Vol] 10 U/L Low 15-37 [facility] Comment on above: Performed By: #### L 501.9985, L501.4405, L500.2500, L501.4100, L500.4100, L502.0250, L501.9520 ####[facility] [address] [place], [address] Alanine Aminotransferas (SGP T)on 06-27-2024 ALT [Catalytic activity/Vol] 8 U/L Low 16-61 [facility] Comment on above: Performed By: #### L 501.9985, L501.4405, L500.2500, L501.4100, L500.4100, L502.0250, L501.9520 ####[facility] [address] [place], [address] Basic Metabolic Profile (BMP )on 06-27-2024 BUN/CRE 17.4 RATIO Normal 10-20 [facility] Comment on above: Performed By: #### L 501.9985, L501.4405, L500.2500, L501.4100, L500.4100, L502.0250, L501.9520 ####[facility] [address] [place], [address] CA,Total 8.8 mg/dL Normal 8.5-10.1 [facility] Comment on above: Performed By: #### L 501.9985, L501.4405, L500.2500, L501.4100, L500.4100, L502.0250, L501.9520 ####[facility] [address] [place], [address] Chloride [Moles/Vol] 109 mmol/L High 98-107 [facility] Comment on above: Performed By: #### L 501.9985, L501.4405, L500.2500, L501.4100, L500.4100, L502.0250, L501.9520 ####[facility] [address] [place], [address] CO2 [Moles/Vol] 28.0 mmol/L Normal 21.0-32.0 [facility] Comment on above: Performed By: #### L 501.9985, L501.4405, L500.2500, L501.4100, L500.4100, L502.0250, L501.9520 ####[facility] [address] [place], [place], [address] Creatinine [Mass/Vol] 0.92 mg/dL Normal 0.70-1.30 [facility] Comment on above: Result Comment: The validity of the calculated GFR GFRAA in patients over 70 years has not been determined. Clinical correlation is essential. Performed By: #### L 501.9985, L501.4405, L500.2500, L501.4100, L500.4100, L502.0250, L501.9520 ####[facility] [address] [place], [place], [id number] EST GFR - AA 102 mL/min Normal >60 [facility] Comment on above: Result Comment: Afri can Taiwanese GFR Calc Performed By: #### L 501.9985, L501.4405, L500.2500, L501.4100, L500.4100, L502.0250, L501.9520 ####[facility] [address] [place], [place], [address] GAP 6 Normal 5-15 [facility] Comment on above: Performed By: #### L 501.9985, L501.4405, L500.2500, L501.4100, L500.4100, L502.0250, L501.9520 ####[facility] [address] [place], [place], [address] GFR/1.73 sq M.predicted among non-blacks MDRD (S/P/Bld) [Vol rate/Area] 84 mL/min/{1.73_m2} Normal >60 [facility] Comment on above: Result Comment: Non- GFR Calc Performed By: #### L 501.9985, L501.4405, L500.2500, L501.4100, L500.4100, L502.0250, L501.9520 ####[facility] [address] [place], [address] Glucose [Mass/Vol] 47 mg/dL Low 74-106 [facility] Comment on above: Result Comment: Gluc ose result less than 50 mg/dL suggests HYPOGLYCEMIA. Performed By: #### L 501.9985, L501.4405, L500.2500, L501.4100, L500.4100, L502.0250, L501.9520 ####[facility] [address] [place], [address] Potassium [Moles/Vol] 3.5 mmol/L Normal 3.5-5.1 [facility] Comment on above: Performed By: #### L 501.9985, L501.4405, L500.2500, L501.4100, L500.4100, L502.0250, L501.9520 ####[facility] [address] [place], [address] Sodium [Moles/Vol] 143 mmol/L Normal 136-145 [facility] Comment on above: Performed By: #### L 501.9985, L501.4405, L500.2500, L501.4100, L500.4100, L502.0250, L501.9520 ####[facility] [address] [place], [address] Urea nitrogen [Mass/Vol] 16 mg/dL Normal 7-18 [facility] Comment on above: Performed By: #### L 501.9985, L501.4405, L500.2500, L501.4100, L500.4100, L502.0250, L501.9520 ####[facility] [address] [place], [address] Cardiology Visit Reporton Cardiology Visit Report [facility] [address] [place] [address] OFFICE VISIT Date of Service: 06/27/24 MR#: [id number] Acct: [id number] Name: KEVIN GRIFFITH Rep #: [id number] : 1945 Provider: Dr. Vladimir Sears MD Age/Sex: 78/M Location: 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 Normal [facility] Hemoglobin A1con 06-27-2024 HbA1c (Bld) [Mass fraction] 6.4 % High 3.8-5.6 [facility] Comment on above: Result Comment: Norm al < 5.7 % Prediabetic 5.7 - 6.4 % Diabetic >or= 6.5 % Please note range changes. Performed By: #### L 501.9985, L501.4405, L500.2500, L501.4100, L500.4100, L502.0250, L501.9520 ####[facility] [address] [place], [address] Lipid Profileon 06-27-2024 Cholesterol [Mass/Vol] 105 mg/dL Normal 200 [facility] Comment on above: Result Comment: <200 mg/dL Desirable 200-240 mg/dL Borderline >240 mg/dL High Risk Performed By: #### L 501.9985, L501.4405, L500.2500, L501.4100, L500.4100, L502.0250, L501.9520 ####[facility] [address] [place], [address] Cholesterol in HDL [Mass/Vol] 45 mg/dL Normal [facility] Comment on above: Result Comment: The drugs N-Acetylcysteine and Metamizole may falsely depress this assay. Reference Range HDL <40 mg/dL Low HDL Cholesterol HDL >or= 60 mg/dL High HDL Cholesterol Performed By: #### L 501.9985, L501.4405, L500.2500, L501.4100, L500.4100, L502.0250, L501.9520 ####[facility] [address] [place], [address] Cholesterol in LDL [Mass/Vol] 40 mg/dL Normal 0-130 [facility] Comment on above: Performed By: #### L 501.9985, L501.4405, L500.2500, L501.4100, L500.4100, L502.0250, L501.9520 ####[facility] [address] [place], [address] Cholesterol in VLDL [Mass/Vol] 20 mg/dL Normal 5-40 [facility] Comment on above: Performed By: #### L 501.9985, L501.4405, L500.2500, L501.4100, L500.4100, L502.0250, L501.9520 ####[facility] [address] [place], [address] Triglyceride [Mass/Vol] 99 mg/dL Normal [facility] Comment on above: Result Comment: The drugs N-Acetylcysteine and Metamizole may falsely depress this assay. Serum Triglycerides Reference Interval Normal <150 mg/dL Borderline high 150 - 199 mg/dL High 200 - 499 mg/dL Very High > or = 500 mg/dL Performed By: #### L 501.9985, L501.4405, L500.2500, L501.4100, L500.4100, L502.0250, L501.9520 ####[facility] [address] [place], [address] Microalb:Creat Ratio,Random URon 06-27-2024 MALB:CRE Normal <30 mg/g CRE [facility] Comment on above: Result Comment: VIKTOR ENT COULD NOT GIVE SAMPLE Performed By: #### L 501.9985, L501.4405, L500.2500, L501.4100, L500.4100, L502.0250, L501.9520 ####[facility] [address] [place], [address] MICROALBUMIN,UR Normal NO RANGE EST. [facility] Comment on above: Result Comment: VIKTOR ENT COULD NOT GIVE SAMPLE Performed By: #### L 501.9985, L501.4405, L500.2500, L501.4100, L500.4100, L502.0250, L501.9520 ####[facility] [address] [place], [address] UR CREAT Normal NO RANGE EST. [facility] Comment on above: Result Comment: VIKTOR ENT COULD NOT GIVE SAMPLE Performed By: #### L 501.9985, L501.4405, L500.2500, L501.4100, L500.4100, L502.0250, L501.9520 ####[facility] [address] [place], [place], [address] Thyroid Stim Hormone (TSH)on 06-27-2024 TSH 1.99 uIU/mL Normal 0.358-3.74 [facility] Comment on above: Performed By: #### L 501.9985, L501.4405, L500.2500, L501.4100, L500.4100, L502.0250, L501.9520 ####[facility] [address] [place], [place], [address] PSA,Total- Diagnosticon 07-2 PSA, DIAGNOSTIC 0.50 ng/mL Normal 0.0-4.0 [facility] Comment on above: Result Comment: This test was performed using the TPSA assay method for the [employer] chemistry system. Values obtained with different assay methods cannot be used interchangably. When changing PSA assays in the course of monitoring a patient, additional sequential testing should be carried out to confirm baseline values. Performed By: #### L 501.9985, L500.2500, L501.4405, L3100.1725, L503.0106, L501.4100 #### [facility] [address] [place], [address] Basophil percentageOrdered B y: Vick Santo on 03-25-2024 Bilirubin [Mass/Vol] 0.70 mg/dL 0.20-1.00 [facility] Comment on above: For patients on eltr ombopag therapy, use of Dimension [place] TBIL is not recommended. Chloride [Moles/Vol] 104 mmol/L 98-107 [facility] Glucose [Mass/Vol] 260 mg/dL 74-106 [facility] Comment on above: Glucose result great er than or equal to 200 mg/dLsuggests DIABETES MELLITUS per A.D.A. criteria. Potassium [Moles/Vol] 3.9 mmol/L 3.5-5.1 [facility] Protein [Mass/Vol] 6.8 g/dL 6.4-8.2 [facility] Sodium [Moles/Vol] 138 mmol/L 136-145 [facility] Laboratory - Chemistry and C hemistry - challengeOrdered By: Vick Santo on 03-25-2024 Albumin/Globulin [Mass ratio] 1.1 {ratio} 0.9-2.4 [facility] ALP [Catalytic activity/Vol] 62 U/L 45-117 [facility] ALT [Catalytic activity/Vol] 13 U/L 16-61 [facility] CO2 [Moles/Vol] 28.0 mmol/L 21.0-32.0 [facility] Globulin (S) [Mass/Vol] 3.3 g/dL 2.2-4.2 [facility] Urea nitrogen/Creatinine [Mass ratio] 23.8 mg/mg 10-20 [facility] No Panel InformationOrdered By: Vick Santo on 03-25-2024 Estimated GFR (MDRD) Amer 92 mL/min >60 [facility] Comment on above: GFR Calc Estimated GFR (MDRD) Non-Af Amer 76 mL/min >60 [facility] Comment on above: Non- GFR Calc Serum or plasma calcium walt urement (mass/volume)Ordered By: Vick Santo on 03-25-2024 Calcium [Mass/Vol] 8.9 mg/dL 8.5-10.1 [facility] Serum or plasma creatinine m easurement (mass/volume)Ordered By: Vick Santo on 03-25-2024 Creatinine [Mass/Vol] 1.01 mg/dL 0.70-1.30 [facility] Comment on above: The validity of the calculated GFR & GFRAA in patients over 70 years has not been determined. Clinical correlation is essential. Serum or plasma urea nitroge n measurement (mass/volume)Ordered By: Vick Santo on 03-25-2024 Urea nitrogen [Mass/Vol] 24 mg/dL 7-18 [facility] Thin prep Papanicolaou smear with manual screeningOrdered By: Vickrobinson Santo on 03-25-2024 Thin prep Papanicolaou smear with manual screening 3.5 g/dL 3.2-5.0 [facility] Thin prep Papanicolaou smear with manual screening 11 U/L 15-37 [facility] Thin prep Papanicolaou smear with manual screening 6 5-15 [facility] Whole blood hemoglobin A1c/t otal hemoglobin ratio (mass fraction)Ordered By: Vick Santo on 03-25-2024 HbA1c (Bld) [Mass fraction] 6.1 % 3.8-5.6 [facility] Comment on above: Normal < 5.7 % Predi abetic 5.7 - 6.4 % Diabetic >or= 6.5 % Please note range changes. Basophil percentageOrdered B y: Ron Cooley on 02-27-2024 Chloride [Moles/Vol] 106 mmol/L 98-107 [facility] Glucose [Mass/Vol] 94 mg/dL 74-106 [facility] Potassium [Moles/Vol] 3.9 mmol/L 3.5-5.1 [facility] Sodium [Moles/Vol] 141 mmol/L 136-145 [facility] Laboratory - Chemistry and C hemistry - challengeOrdered By: Ron Cooley on 02-27-2024 ALT [Catalytic activity/Vol] 14 U/L 16-61 [facility] CO2 [Moles/Vol] 28.0 mmol/L 21.0-32.0 [facility] Urea nitrogen/Creatinine [Mass ratio] 22.1 mg/mg 10-20 [facility] No Panel InformationOrdered By: Ron Cooley on 02-27-2024 Estimated GFR (MDRD) Amer 104 mL/min >60 [facility] Comment on above: GFR Calc Estimated GFR (MDRD) Non-Af Amer 86 mL/min >60 [facility] Comment on above: Non- GFR Calc Serum or plasma calcium walt urement (mass/volume)Ordered By: Ron Cooley on 02-27-2024 Calcium [Mass/Vol] 9.3 mg/dL 8.5-10.1 [facility] Serum or plasma creatinine m easurement (mass/volume)Ordered By: Ron Cooley on 02-27-2024 Creatinine [Mass/Vol] 0.90 mg/dL 0.70-1.30 [facility] Comment on above: The validity of the calculated GFR & GFRAA in patients over 70 years has not been determined. Clinical correlation is essential. Serum or plasma urea nitroge n measurement (mass/volume)Ordered By: Ron Cooley on 02-27-2024 Urea nitrogen [Mass/Vol] 20 mg/dL 7-18 [facility] Thin prep Papanicolaou smear with manual screeningOrdered By: Ron Cooley on 02-27-2024 Thin prep Papanicolaou smear with manual screening 15 U/L 15-37 [facility] Thin prep Papanicolaou smear with manual screening 7 5-15 [facility] Whole blood hemoglobin A1c/t otal hemoglobin ratio (mass fraction)Ordered By: Ron Cooley on 02-27-2024 HbA1c (Bld) [Mass fraction] 6.1 % 3.8-5.6 [facility] Comment on above: Normal < 5.7 % Predi abetic 5.7 - 6.4 % Diabetic >or= 6.5 % Please note range changes. Absolute lymphocyte countOrd ered By: Ron Cooley on 12-15-2023 Lymphocytes Auto (Unsp spec) [#/Vol] 3.13 10*3/uL 0.83-4.51 [facility] Automated lymphocyte count a s percentage of total leukocytesOrdered By: Ron Shepparddelia on 12-15-2023 Lymphocytes/100 WBC Auto (Unsp spec) 38.1 % 19-41 [facility] Basophil percentageOrdered B y: Ron Shepparddelia on 12-15-2023 Basophils/100 WBC (Bld) 0.7 % 0-1 [facility] Bilirubin [Mass/Vol] 0.80 mg/dL 0.20-1.00 [facility] Comment on above: For patients on eltr ombopag therapy, use of Dimension [place] TBIL is not recommended. Chloride [Moles/Vol] 107 mmol/L 98-107 [facility] Cholesterol [Mass/Vol] 136 mg/dL <200 [facility] Comment on above: <200 mg/dL Desirable 200-240 mg/dL Borderline >240 mg/dL High Risk Eosinophils/100 WBC (Bld) 1.8 % 0-5 [facility] Glucose [Mass/Vol] 87 mg/dL 74-106 [facility] Hemoglobin (Bld) [Mass/Vol] 15.3 g/dL 13.0-16.5 [facility] Monocytes/100 WBC (Bld) 10.5 % 0-10 [facility] Neutrophils (Bld) [#/Vol] 4.0 10*3/uL 2.0-7.7 [facility] Neutrophils/100 WBC (Bld) 48.4 % 47-70 [facility] Potassium [Moles/Vol] 3.7 mmol/L 3.5-5.1 [facility] Protein [Mass/Vol] 7.2 g/dL 6.4-8.2 [facility] Sodium [Moles/Vol] 140 mmol/L 136-145 [facility] Triglyceride [Mass/Vol] 127 mg/dL <199 [facility] Comment on above: The drugs N-Acetylcy steine and Metamizole may falsely depress this assay.Serum Triglycerides Reference Interval Normal <150 mg/dL Borderline high 150 - 199 mg/dL High 200 - 499 mg/dL Very High > or = 500 mg/dL WBC (Bld) [#/Vol] 8.2 10*3/uL 4.4-11.0 [facility] Determination of erythrocyte mean corpuscular volume (MCV)Ordered By: Ron Cooley on 12-15-2023 MCV (RBC) [Entitic vol] 90.0 fL 80-94 [facility] Erythrocyte distribution wid th ratioOrdered By: Ron Cooley on 12-15-2023 Erythrocyte distribution width (RBC) [Ratio] 13.2 % 11.6-14.6 [facility] Erythrocyte distribution wid th standard deviationOrdered By: Ron Cooley on 12-15-2023 Erythrocyte distribution width (RBC) [Entitic vol] 43.5 fL 35.1-43.9 [facility] Hematocrit Auto (Bld) [Volum e fraction]Ordered By: Ron Cooley on 12-15-2023 Hematocrit (Bld) [Volume fraction] 46.1 % 40-54 [facility] High density lipoprotein (HD L) measurementOrdered By: Ron Cooley on 12-15-2023 Cholesterol in HDL (Body fld) [Mass/Vol] 50 mg/dL >40 [facility] Comment on above: The drugs N-Acetylcy steine and Metamizole may falsely depress this assay. Reference Range HDL <40 mg/dL Low HDL Cholesterol HDL >or= 60 mg/dL High HDL Cholesterol Immature granulocytes/100 WB C Auto (Bld)Ordered By: Ron Cooley on 12-15-2023 Immature granulocytes/100 WBC (Bld) 0.500 % 0.0-0.9 [facility] Comment on above: IG% - Immature Granu locytes (promyelocytes, myelocytes and metamyelocytes) > 1% indicates that a LEFT SHIFT is Present. Laboratory - Chemistry and C hemistry - challengeOrdered By: Ron Cooley on 12-15-2023 Albumin/Globulin [Mass ratio] 1.1 {ratio} 0.9-2.4 [facility] ALP [Catalytic activity/Vol] 67 U/L 45-117 [facility] ALT [Catalytic activity/Vol] 12 U/L 16-61 [facility] CO2 [Moles/Vol] 29.0 mmol/L 21.0-32.0 [facility] Globulin (S) [Mass/Vol] 3.5 g/dL 2.2-4.2 [facility] Magnesium [Mass/Vol] 1.9 mg/dL 1.6-2.6 [facility] Urea nitrogen/Creatinine [Mass ratio] 19.3 mg/mg 10-20 [facility] Laboratory - Hematology and Cell countsOrdered By: Ron Cooley on 12-15-2023 MCH (RBC) [Entitic mass] 29.9 pg 27.0-32.0 [facility] MCHC (RBC) [Mass/Vol] 33.2 g/dL 32-36 [facility] Nucleated RBC/100 WBC (Bld) [Ratio] 0 % 0-5 [facility] Platelets (Bld) [#/Vol] 240 10*3/uL 150-450 [facility] Low density lipoprotein (LDL ) cholesterol measurementOrdered By: Ron Cooley on 12-15-2023 Cholesterol in LDL (Body fld) [Moles/Vol] 61 mg/dL 0-130 [facility] No Panel InformationOrdered By: Ron Cooley on 12-15-2023 Estimated GFR (MDRD) Amer 101 mL/min >60 [facility] Comment on above: GFR Calc Estimated GFR (MDRD) Non-Af Amer 83 mL/min >60 [facility] Comment on above: Non- GFR Calc Platelet mean volume [place]-[facility] (Bld) [Entitic vol]Ordered By: Ron Cooley on 12-15-2023 Platelet mean volume (Bld) [Entitic vol] 11.1 fL 6.2-12.0 [facility] RBC Auto (Bld) [#/Vol]Ordere d By: Ron Cooley on 12-15-2023 RBC (Bld) [#/Vol] 5.12 10*6/uL 4.6-6.2 [facility] Serum or plasma calcium walt urement (mass/volume)Ordered By: Ron Cooley on 12-15-2023 Calcium [Mass/Vol] 9.2 mg/dL 8.5-10.1 [facility] Serum or plasma creatinine m easurement (mass/volume)Ordered By: Ron Cooley on 12-15-2023 Creatinine [Mass/Vol] 0.93 mg/dL 0.70-1.30 [facility] Comment on above: The validity of the calculated GFR & GFRAA in patients over 70 years has not been determined. Clinical correlation is essential. Serum or plasma thyroid stim ulating hormone (TSH) measurement (units/volume)Ordered By: Ron Cooley on 12-15-2023 TSH Qn 1.60 uIU/mL 0.358-3.74 [facility] Serum or plasma urea nitroge n measurement (mass/volume)Ordered By: Ron Cooley on 12-15-2023 Urea nitrogen [Mass/Vol] 18 mg/dL 7-18 [facility] Thin prep Papanicolaou smear with manual screeningOrdered By: Ron Cooley on 12-15-2023 Thin prep Papanicolaou smear with manual screening 3.7 g/dL 3.2-5.0 [facility] Thin prep Papanicolaou smear with manual screening 14 U/L 15-37 [facility] Thin prep Papanicolaou smear with manual screening 4 5-15 [facility] Very low density lipoprotein (VLDL) cholesterol measurementOrdered By: Ron Cooley on 12-15-2023 Cholesterol in VLDL Calc [Moles/Vol] 25 mg/dL 5-40 [facility] Whole blood hemoglobin A1c/t otal hemoglobin ratio (mass fraction)Ordered By: Ron Cooley on 12-15-2023 HbA1c (Bld) [Mass fraction] 5.9 % 3.8-5.6 [facility] Comment on above: Normal < 5.7 % Predi abetic 5.7 - 6.4 % Diabetic >or= 6.5 % Please note range changes. Albumin Elph [Mass/Vol]Order ed By: Vick Santo on 11-23-2023 Albumin [Mass/Vol] 3.6 g/dL 2.9-4.4 [facility] Basophil percentageOrdered B y: Vick Santo on 11-23-2023 Basophil percentage Comment: . [facility] Comment on above: Presence of monoclon al protein is unclear at this time. Suggestrepeat in 3 to 6 months if clinically indicated.Performed at: - [facility] [id number] Director: Vj Garcia PhD, Phone: [phone] Interpretation of serum or p lasma protein pattern by immunofixation (narrative resultOrdered By: Vick Santo on 11-23-2023 Protein Fractions Immunofixation Blanco [Interp] Not Observed g/dL Not Observed [facility] No Panel InformationOrdered By: Vick Santo on 11-23-2023 Addendum Document Comment . [facility] Comment on above: Protein electrophore sis scan will follow via computer,mail, or concert pianist delivery. Serum [id number] measu rement by electrophoresisOrdered By: Vick Santo on 11-23-2023 Alpha 1 globulin Elph [Mass/Vol] 0.4 g/dL 0.0-0.4 [facility] Alpha 1 globulin Elph [Mass/Vol] 1.0 g/dL 0.4-1.0 [facility] Serum globulin measurement ( mass/volume)Ordered By: Vick Santo on 11-23-2023 Globulin (S) [Mass/Vol] 3.1 g/dL 2.2-3.9 [facility] Serum or plasma IgA measurem ent (mass/volume)Ordered By: Vick Santo on 11-23-2023 IgA [Mass/Vol] 167 mg/dL 61-437 [facility] Serum or plasma IgG measurem ent (mass/volume)Ordered By: Vick Santo on 11-23-2023 IgG [Mass/Vol] 849 mg/dL 603-1613 [facility] Serum or plasma IgM measurem ent (mass/volume)Ordered By: Vick Santo on 11-23-2023 IgM [Mass/Vol] 91 mg/dL 15-143 [facility] Serum or plasma beta globuli n measurement by electrophoresis (mass/volume)Ordered By: Vick Santo on 11-23-2023 Beta globulin Elph [Mass/Vol] 1.0 g/dL 0.7-1.3 [facility] Serum or plasma gamma globul in measurement by electrophoresis (mass/volume)Ordered By: Vick Santo on 11-23-2023 Gamma globulin Elph [Mass/Vol] 0.7 g/dL 0.4-1.8 [facility] Serum or plasma immunoelectr ophoresis interpretation (nominal result)Ordered By: Vick Santo on 11-23-2023 Interpretation IEP [Interp] Comment . [facility] Comment on above: No monoclonality det ected. Thin prep Papanicolaou smear with manual screeningOrdered By: Vick Santo on 11-23-2023 Thin prep Papanicolaou smear with manual screening 1.2 0.7-1.7 [facility] Total protein bloodOrdered B y: Vick Santo on 11-23-2023 Protein [Mass/Vol] 6.7 g/dL 6.0-8.5 [facility] Basophil percentageOrdered B y: Natasha Gregory on 10-31-2023 Chloride [Moles/Vol] 107 mmol/L 98-107 [facility] Glucose [Mass/Vol] 102 mg/dL 74-106 [facility] Comment on above: Fasting Glucose resu lt from 100 to 125 mg/dL suggests IMPAIRED HOMEOSTASIS per A.D.A. criteria. Potassium [Moles/Vol] 3.6 mmol/L 3.5-5.1 [facility] Sodium [Moles/Vol] 142 mmol/L 136-145 [facility] Laboratory - Chemistry and C hemistry - challengeOrdered By: Natasha Gregory on 10-31-2023 ALT [Catalytic activity/Vol] 11 U/L 16-61 [facility] CO2 [Moles/Vol] 28.0 mmol/L 21.0-32.0 [facility] Urea nitrogen/Creatinine [Mass ratio] 22.7 mg/mg 10-20 [facility] No Panel InformationOrdered By: Natasha Gregory on 10-31-2023 Estimated GFR (MDRD) Amer 101 mL/min >60 [facility] Comment on above: GFR Calc Estimated GFR (MDRD) Non-Af Amer 84 mL/min >60 [facility] Comment on above: Non- GFR Calc Serum or plasma calcium walt urement (mass/volume)Ordered By: Natasha Gregory on 10-31-2023 Calcium [Mass/Vol] 8.8 mg/dL 8.5-10.1 [facility] Serum or plasma creatinine m easurement (mass/volume)Ordered By: Natasha Gregory on 10-31-2023 Creatinine [Mass/Vol] 0.93 mg/dL 0.70-1.30 [facility] Comment on above: The validity of the calculated GFR & GFRAA in patients over 70 years has not been determined. Clinical correlation is essential. Serum or plasma urea nitroge n measurement (mass/volume)Ordered By: Natasha Gregory on 10-31-2023 Urea nitrogen [Mass/Vol] 21 mg/dL 7-18 [facility] Thin prep Papanicolaou smear with manual screeningOrdered By: Natasha Gregory on 10-31-2023 Thin prep Papanicolaou smear with manual screening 10 U/L 15-37 [facility] Thin prep Papanicolaou smear with manual screening 7 5-15 [facility] Whole blood hemoglobin A1c/t otal hemoglobin ratio (mass fraction)Ordered By: Natasha Gregory on 10-31-2023 HbA1c (Bld) [Mass fraction] 5.7 % 3.8-5.6 [facility] Comment on above: Normal < 5.7 % Predi abetic 5.7 - 6.4 % Diabetic >or= 6.5 % Please note range changes. Basophil percentageOrdered B y: Natasha Gregory on 08-03-2023 Chloride [Moles/Vol] 108 mmol/L 98-107 [facility] Cholesterol [Mass/Vol] 127 mg/dL <200 [facility] Comment on above: <200 mg/dL Desirable 200-240 mg/dL Borderline >240 mg/dL High Risk Glucose [Mass/Vol] 66 mg/dL 74-106 [facility] Potassium [Moles/Vol] 3.5 mmol/L 3.5-5.1 [facility] Sodium [Moles/Vol] 139 mmol/L 136-145 [facility] Triglyceride [Mass/Vol] 101 mg/dL <199 [facility] Comment on above: The drugs N-Acetylcy steine and Metamizole may falsely depress this assay.Serum Triglycerides Reference Interval Normal <150 mg/dL Borderline high 150 - 199 mg/dL High 200 - 499 mg/dL Very High > or = 500 mg/dL Laboratory - Chemistry and C hemistry - challengeOrdered By: Natasha Gregory on 08-03-2023 ALT [Catalytic activity/Vol] 11 U/L 16-61 [facility] CO2 [Moles/Vol] 26.0 mmol/L 21.0-32.0 [facility] Urea nitrogen/Creatinine [Mass ratio] 19.8 mg/mg 10-20 [facility] No Panel InformationOrdered By: Natasha Gregory on 08-03-2023 Urine Microalbumin/Creatinine Ratio 14.9 mg/g CRE <30 [facility] Estimated GFR (MDRD) Amer 97 mL/min >60 [facility] Comment on above: GFR Calc Estimated GFR (MDRD) Non-Af Amer 81 mL/min >60 [facility] Comment on above: Non- GFR Calc Thyroid Stimulating Hormone (TSH) 1.96 uIU/mL 0.358-3.74 [facility] Serum or plasma calcium walt urement (mass/volume)Ordered By: Natasha Gregory on 08-03-2023 Calcium [Mass/Vol] 9.0 mg/dL 8.5-10.1 [facility] Serum or plasma cholesterol in HDL measurement (mass/volume)Ordered By: Natasha Gregory on 08-03-2023 Cholesterol in HDL [Mass/Vol] 49 mg/dL >40 [facility] Comment on above: The drugs N-Acetylcy steine and Metamizole may falsely depress this assay. Reference Range HDL <40 mg/dL Low HDL Cholesterol HDL >or= 60 mg/dL High HDL Cholesterol Serum or plasma cholesterol in VLDL measurement (mass/volume)Ordered By: Natasha Gregory on 08-03-2023 Cholesterol in VLDL [Mass/Vol] 20 mg/dL 5-40 [facility] Serum or plasma creatinine m easurement (mass/volume)Ordered By: Natasha Gregory on 08-03-2023 Creatinine [Mass/Vol] 0.96 mg/dL 0.70-1.30 [facility] Comment on above: The validity of the calculated GFR & GFRAA in patients over 70 years has not been determined. Clinical correlation is essential. Serum or plasma low density lipoprotein (LDL) cholesterol measurement (mass/volume)Ordered By: Natasha Gregory on 08-03-2023 Cholesterol in LDL [Mass/Vol] 58 mg/dL 0-130 [facility] Serum or plasma urea nitroge n measurement (mass/volume)Ordered By: Natasha Gregory on 08-03-2023 Urea nitrogen [Mass/Vol] 19 mg/dL 7-18 [facility] Thin prep Papanicolaou smear with manual screeningOrdered By: Natasha Gregory on 08-03-2023 Thin prep Papanicolaou smear with manual screening 18.2 mg/L NO RANGE EST. [facility] Thin prep Papanicolaou smear with manual screening 9 U/L 15-37 [facility] Thin prep Papanicolaou smear with manual screening 5 5-15 [facility] Urine creatinine measurement (mass/volume)Ordered By: Natasha Gregory on 08-03-2023 Creatinine (U) [Mass/Vol] 122.00 mg/dL NO RANGE EST. [facility] Whole blood hemoglobin A1c/t otal hemoglobin ratio (mass fraction)Ordered By: Natasha Gregory on 08-03-2023 HbA1c (Bld) [Mass fraction] 6.2 % 3.8-5.6 [facility] Comment on above: Normal < 5.7 % Predi abetic 5.7 - 6.4 % Diabetic >or= 6.5 % Please note range changes. Basophil percentageOrdered B y: Dr. Santo on 05-09-2023 WBC (Bld) [#/Vol] 10.2 10*3/uL 4.4-11.0 [facility] Blood erythrocytes count (nu mber/volume)Ordered By: Dr. Santo on 05-09-2023 RBC (Bld) [#/Vol] 4.60 10*6/uL 4.6-6.2 [facility] Blood hemoglobin measurement (mass/volume)Ordered By: Dr. Santo on 05-09-2023 Hemoglobin (Bld) [Mass/Vol] 14.1 g/dL 13.0-16.5 [facility] Blood platelet mean volumeOr dered By: Dr. Santo on 05-09-2023 Platelet mean volume (Bld) [Entitic vol] 10.7 fL 6.2-12.0 [facility] Determination of erythrocyte mean corpuscular volume (MCV)Ordered By: Dr. Santo on 05-09-2023 MCV (RBC) [Entitic vol] 90.9 fL 80-94 [facility] Hematocrit Auto (Bld) [Volum e fraction]Ordered By: Dr. Santo on 05-09-2023 Hematocrit (Bld) [Volume fraction] 41.8 % 40-54 [facility] Laboratory - Chemistry and C hemistry - challengeOrdered By: Dr. Santo on 05-09-2023 Cobalamin (Vitamin B12) [Mass/Vol] 281 pg/mL 211-911 [facility] Laboratory - Hematology and Cell countsOrdered By: Dr. Santo on 05-09-2023 Erythrocyte distribution width (RBC) [Entitic vol] 44.1 fL 35.1-43.9 [facility] Erythrocyte distribution width (RBC) [Ratio] 13.3 % 11.6-14.6 [facility] MCH (RBC) [Entitic mass] 30.7 pg 27.0-32.0 [facility] MCHC Auto (RBC) [Mass/Vol]Or dered By: Dr. Santo on 05-09-2023 MCHC (RBC) [Mass/Vol] 33.7 g/dL 32-36 [facility] No Panel InformationOrdered By: Vick Santo on 05-09-2023 Free Lambda Light Chains, Quant 20.2 mg/L 5.7-26.3 [facility] Whole Blood Vitamin B1 Level 118.1 nmol/L 66.5-200.0 [facility] Comment on above: Performed at: - [address] [id number] Director: Vj Garcia PhD, Phone: [phone] at: [facility] [id number] Director: Sherine Mendez MD, Phone: [phone] No Panel InformationOrdered By: Dr. Santo on 05-09-2023 Thyroid Stimulating Hormone (TSH) 2.11 uIU/mL 0.358-3.74 [facility] Platelets bldOrdered By: Dr. Santo on 05-09-2023 Platelets (Bld) [#/Vol] 285 10*3/uL 150-450 [facility] Serum immunoglobulin kappa l ight chains/immunoglobulin lambda light chains mass ratioOrdered By: Vick Santo on 05-09-2023 Immunoglobulin light chains.kappa/Immunoglobul in light chains.lambda (S) [Mass ratio] 1.69 0.26-1.65 [facility] Serum or plasma folate measu rement (mass/volume)Ordered By: Dr. Santo on 05-09-2023 Folate [Mass/Vol] 11.40 ng/mL 3.1-55.4 [facility] Serum or plasma immunoglobul in kappa light chains measurement (mass/volume)Ordered By: Vick Santo on 05-09-2023 Immunoglobulin light chains.kappa [Mass/Vol] 34.1 mg/L 3.3-19.4 [facility] Basophil percentageOrdered B y: Dr. Gregory on 05-01-2023 Chloride [Moles/Vol] 107 mmol/L 98-107 [facility] Glucose [Mass/Vol] 98 mg/dL 74-106 [facility] Potassium [Moles/Vol] 3.8 mmol/L 3.5-5.1 [facility] Sodium [Moles/Vol] 140 mmol/L 136-145 [facility] Laboratory - Chemistry and C hemistry - challengeOrdered By: Dr. Gregory on 05-01-2023 ALT [Catalytic activity/Vol] 13 U/L 16-61 [facility] CO2 [Moles/Vol] 26.0 mmol/L 21.0-32.0 [facility] Urea nitrogen/Creatinine [Mass ratio] 23.4 mg/mg 10-20 [facility] No Panel InformationOrdered By: Dr. Gregory on 05-01-2023 Estimated GFR (MDRD) Amer 95 mL/min >60 [facility] Comment on above: GFR Calc Estimated GFR (MDRD) Non-Af Amer 78 mL/min >60 [facility] Comment on above: Non- GFR Calc Serum or plasma calcium walt urement (mass/volume)Ordered By: Dr. Gregory on 05-01-2023 Calcium [Mass/Vol] 9.0 mg/dL 8.5-10.1 [facility] Serum or plasma creatinine m easurement (mass/volume)Ordered By: Dr. Gregory on 05-01-2023 Creatinine [Mass/Vol] 0.98 mg/dL 0.70-1.30 [facility] Comment on above: The validity of the calculated GFR & GFRAA in patients over 70 years has not been determined. Clinical correlation is essential. Serum or plasma urea nitroge n measurement (mass/volume)Ordered By: Dr. Gregory on 05-01-2023 Urea nitrogen [Mass/Vol] 23 mg/dL 7-18 [facility] Thin prep Papanicolaou smear with manual screeningOrdered By: Dr. Gregory on 05-01-2023 Thin prep Papanicolaou smear with manual screening 12 U/L 15-37 [facility] Thin prep Papanicolaou smear with manual screening 7 5-15 [facility] Whole blood hemoglobin A1c/t otal hemoglobin ratio (mass fraction)Ordered By: Dr. Gregory on 05-01-2023 HbA1c (Bld) [Mass fraction] 6.2 % 3.8-5.6 [facility] Comment on above: Normal < 5.7 % Predi abetic 5.7 - 6.4 % Diabetic >or= 6.5 % Please note range changes. Absolute lymphocyte countOrd ered By: Dr. Cooley on 02-21-2023 Lymphocytes Auto (Unsp spec) [#/Vol] 3.36 10*3/uL 0.83-4.51 [facility] Basophil percentageOrdered B y: Dr. Cooley on 02-21-2023 Basophils/100 WBC (Bld) 0.7 % 0-1 [facility] Bilirubin [Mass/Vol] 0.60 mg/dL 0.20-1.00 [facility] Comment on above: For patients on eltr ombopag therapy, use of Dimension [place] TBIL is not recommended. Chloride [Moles/Vol] 104 mmol/L 98-107 [facility] Cholesterol [Mass/Vol] 133 mg/dL <200 [facility] Comment on above: <200 mg/dL Desirable 200-240 mg/dL Borderline >240 mg/dL High Risk Eosinophils/100 WBC (Bld) 1.5 % 0-5 [facility] Glucose [Mass/Vol] 232 mg/dL 74-106 [facility] Comment on above: Glucose result great er than or equal to 200 mg/dLsuggests DIABETES MELLITUS per A.D.A. criteria. Neutrophils (Bld) [#/Vol] 5.4 10*3/uL 2.0-7.7 [facility] Neutrophils/100 WBC (Bld) 53.2 % 47-70 [facility] Potassium [Moles/Vol] 4.0 mmol/L 3.5-5.1 [facility] Protein [Mass/Vol] 6.8 g/dL 6.4-8.2 [facility] Sodium [Moles/Vol] 137 mmol/L 136-145 [facility] Triglyceride [Mass/Vol] 117 mg/dL <199 [facility] Comment on above: The drugs N-Acetylcy steine and Metamizole may falsely depress this assay.Serum Triglycerides Reference Interval Normal <150 mg/dL Borderline high 150 - 199 mg/dL High 200 - 499 mg/dL Very High > or = 500 mg/dL WBC (Bld) [#/Vol] 10.1 10*3/uL 4.4-11.0 [facility] Blood erythrocytes count (nu mber/volume)Ordered By: Dr. Cooley on 02-21-2023 RBC (Bld) [#/Vol] 4.56 10*6/uL 4.6-6.2 [facility] Blood hemoglobin measurement (mass/volume)Ordered By: Dr. Cooley on 02-21-2023 Hemoglobin (Bld) [Mass/Vol] 14.0 g/dL 13.0-16.5 [facility] Blood lymphocytes/100 leukoc ytesOrdered By: Dr. Cooley on 02-21-2023 Lymphocytes/100 WBC (Bld) 33.3 % 19-41 [facility] Blood monocytes/100 leukocyt esOrdered By: Dr. Cooley on 02-21-2023 Monocytes/100 WBC (Bld) 10.4 % 0-10 [facility] Blood platelet mean volumeOr dered By: Dr. Cooley on 02-21-2023 Platelet mean volume (Bld) [Entitic vol] 10.2 fL 6.2-12.0 [facility] Determination of erythrocyte mean corpuscular volume (MCV)Ordered By: Dr. Cooley on 02-21-2023 MCV (RBC) [Entitic vol] 92.5 fL 80-94 [facility] Hematocrit Auto (Bld) [Volum e fraction]Ordered By: Dr. Cooley on 02-21-2023 Hematocrit (Bld) [Volume fraction] 42.2 % 40-54 [facility] Laboratory - Chemistry and C hemistry - challengeOrdered By: Dr. Cooley on 02-21-2023 ALP [Catalytic activity/Vol] 68 U/L 45-117 [facility] ALT [Catalytic activity/Vol] 19 U/L 16-61 [facility] CO2 [Moles/Vol] 27.0 mmol/L 21.0-32.0 [facility] Globulin (S) [Mass/Vol] 3.4 g/dL 2.2-4.2 [facility] Magnesium [Mass/Vol] 1.9 mg/dL 1.6-2.6 [facility] Urea nitrogen/Creatinine [Mass ratio] 27.1 mg/mg 10-20 [facility] Laboratory - Hematology and Cell countsOrdered By: Dr. Cooley on 02-21-2023 Erythrocyte distribution width (RBC) [Entitic vol] 47.2 fL 35.1-43.9 [facility] Erythrocyte distribution width (RBC) [Ratio] 14.0 % 11.6-14.6 [facility] Immature granulocytes/100 WBC (Bld) 0.900 % 0.0-0.9 [facility] Comment on above: IG% - Immature Granu locytes (promyelocytes, myelocytes and metamyelocytes) > 1% indicates that a LEFT SHIFT is Present. MCH (RBC) [Entitic mass] 30.7 pg 27.0-32.0 [facility] Nucleated RBC/100 WBC (Bld) [Ratio] 0 % 0-5 [facility] MCHC Auto (RBC) [Mass/Vol]Or dered By: Dr. Cooley on 02-21-2023 MCHC (RBC) [Mass/Vol] 33.2 g/dL 32-36 [facility] No Panel InformationOrdered By: Dr. Cooley on 02-21-2023 Estimated GFR (MDRD) Amer 93 mL/min >60 [facility] Comment on above: GFR Calc Estimated GFR (MDRD) Non-Af Amer 77 mL/min >60 [facility] Comment on above: Non- GFR Calc Thyroid Stimulating Hormone (TSH) 1.59 uIU/mL 0.358-3.74 [facility] Urine Microalbumin/Creatinine Ratio 10.3 mg/g CRE <30 [facility] Platelets bldOrdered By: Dr. Cooley on 02-21-2023 Platelets (Bld) [#/Vol] 330 10*3/uL 150-450 [facility] Serum or plasma albumin walt urement (mass/volume)Ordered By: Dr. Cooley on 02-21-2023 Albumin [Mass/Vol] 3.4 g/dL 3.2-5.0 [facility] Serum or plasma albumin/glob ulin mass ratioOrdered By: Dr. Cooley on 02-21-2023 Albumin/Globulin [Mass ratio] 1.0 {ratio} 0.9-2.4 [facility] Serum or plasma calcium walt urement (mass/volume)Ordered By: Dr. Cooley on 02-21-2023 Calcium [Mass/Vol] 9.1 mg/dL 8.5-10.1 [facility] Serum or plasma cholesterol in HDL measurement (mass/volume)Ordered By: Dr. Cooley on 02-21-2023 Cholesterol in HDL [Mass/Vol] 52 mg/dL >40 [facility] Comment on above: The drugs N-Acetylcy steine and Metamizole may falsely depress this assay. Reference Range HDL <40 mg/dL Low HDL Cholesterol HDL >or= 60 mg/dL High HDL Cholesterol Serum or plasma cholesterol in VLDL measurement (mass/volume)Ordered By: Dr. Cooley on 02-21-2023 Cholesterol in VLDL [Mass/Vol] 23 mg/dL 5-40 [facility] Serum or plasma creatinine m easurement (mass/volume)Ordered By: Dr. Cooley on 02-21-2023 Creatinine [Mass/Vol] 1.00 mg/dL 0.70-1.30 [facility] Comment on above: The validity of the calculated GFR & GFRAA in patients over 70 years has not been determined. Clinical correlation is essential. Serum or plasma low density lipoprotein (LDL) cholesterol measurement (mass/volume)Ordered By: Dr. Cooley on 02-21-2023 Cholesterol in LDL [Mass/Vol] 58 mg/dL 0-130 [facility] Serum or plasma urea nitroge n measurement (mass/volume)Ordered By: Dr. Cooley on 02-21-2023 Urea nitrogen [Mass/Vol] 27 mg/dL 7-18 [facility] Thin prep Papanicolaou smear with manual screeningOrdered By: Dr. Cooley on 02-21-2023 Thin prep Papanicolaou smear with manual screening 9 U/L 15-37 [facility] Thin prep Papanicolaou smear with manual screening 6 5-15 [facility] Thin prep Papanicolaou smear with manual screening 11.9 mg/L NO RANGE EST. [facility] Urine creatinine measurement (mass/volume)Ordered By: Dr. Cooley on 02-21-2023 Creatinine (U) [Mass/Vol] 115.00 mg/dL NO RANGE EST. [facility] Whole blood hemoglobin A1c/t otal hemoglobin ratio (mass fraction)Ordered By: Dr. Cooley on 02-21-2023 HbA1c (Bld) [Mass fraction] 6.4 % 3.8-5.6 [facility] Comment on above: Normal < 5.7 % Predi abetic 5.7 - 6.4 % Diabetic >or= 6.5 % Please note range changes. Anabelle 02-14-2023 JUMA Telephone (NIKOS) KEVIN GRIFFITH ([id number]) 1945 M Date Time Provider Department 02/14/23 [...] is very concerned. Please call her at [phone]. Raeann Harrison RN 02/14/2023 3:05 PM Signed Received voicemail from patients' on Mon02/14/2023 2:28 PM Transcript below: This is Brennen Griffith. My phone number is [phone]. I'm calling for my Kevin Griffith. His [...] mg tablet (more content not included)... Normal [facility] CNPNon 01-10-2023 CNPN Telephone (TOANMDN) NACHOKEVIN Khushbu ([id number]) 1945 M Date Time Provider Department 01/10/23 JAYLYN NIEVES During your visit today, we recorded the following information about you: Grace Sibley RN 01/10/2023 4:24 PM Signed Voicemail received January 10, 2023 1928 My name is Brennen Griffith. My phone number is [phone]. My 's name is Kevin Griffith. He [...] is Brennen Griffith. My phone number is [phone]. This is in regard to Kevin Griffith. [...] 50 MCG, 2,000 UNIT, GUMMIES) - fluticasone jlpzozc-viyraixlujkx-jk lanterol (TRELEGY ELLIPTA) 200-62.5-25 mcg powder inhaler [...] Encounter Status:Closed by KAREN PARRA on 01/13/23 [facility] percentageOrdered B y: Dr. Gregory on 01-04-2023 Chloride [Moles/Vol] 106 mmol/L 98-107 [facility] Cholesterol [Mass/Vol] 139 mg/dL <[address] [facility] Comment on above: <200 mg/dL Desirable 200-240 mg/dL Borderline >240 mg/dL High Risk Glucose [Mass/Vol] 55 mg/dL 74-106 [facility] Potassium [Moles/Vol] 3.9 mmol/L 3.5-5.1 [facility] Sodium [Moles/Vol] 143 mmol/L 136-145 [facility] Triglyceride [Mass/Vol] 133 mg/dL <199 [facility] Comment on above: The drugs N-Acetylcy steine and Metamizole may falsely depress this assay.Serum Triglycerides Reference Interval Normal <150 mg/dL Borderline high 150 - 199 mg/dL High 200 - 499 mg/dL Very High > or = 500 mg/dL Laboratory - Chemistry and C hemistry - challengeOrdered By: Dr. Gregory on 01-04-2023 ALT [Catalytic activity/Vol] 12 U/L 16-61 [facility] CO2 [Moles/Vol] 27.0 mmol/L 21.0-32.0 [facility] Urea nitrogen/Creatinine [Mass ratio] 25.1 mg/mg 10-20 [facility] No Panel InformationOrdered By: Dr. Gregory on 01-04-2023 Estimated GFR (MDRD) Amer 98 mL/min >60 [facility] Comment on above: GFR Calc Estimated GFR (MDRD) Non-Af Amer 81 mL/min >60 [facility] Comment on above: Non- GFR Calc Serum or plasma calcium walt urement (mass/volume)Ordered By: Dr. Gregory on 01-04-2023 Calcium [Mass/Vol] 8.9 mg/dL 8.5-10.1 [facility] Serum or plasma cholesterol in HDL measurement (mass/volume)Ordered By: Dr. Gregory on 01-04-2023 Cholesterol in HDL [Mass/Vol] 44 mg/dL >40 [facility] Comment on above: The drugs N-Acetylcy steine and Metamizole may falsely depress this assay. Reference Range HDL <40 mg/dL Low HDL Cholesterol HDL >or= 60 mg/dL High HDL Cholesterol Serum or plasma cholesterol in VLDL measurement (mass/volume)Ordered By: Dr. Gregory on 01-04-2023 Cholesterol in VLDL [Mass/Vol] 27 mg/dL 5-40 [facility] Serum or plasma creatinine m easurement (mass/volume)Ordered By: Dr. Gregory on 01-04-2023 Creatinine [Mass/Vol] 0.96 mg/dL 0.70-1.30 [facility] Comment on above: The validity of the calculated GFR & GFRAA in patients over 70 years has not been determined. Clinical correlation is essential. Serum or plasma low density lipoprotein (LDL) cholesterol measurement (mass/volume)Ordered By: Dr. Gregory on 01-04-2023 Cholesterol in LDL [Mass/Vol] 68 mg/dL 0-130 [facility] Serum or plasma urea nitroge n measurement (mass/volume)Ordered By: Dr. Gregory on 01-04-2023 Urea nitrogen [Mass/Vol] 24 mg/dL 7-18 [facility] Thin prep Papanicolaou smear with manual screeningOrdered By: Dr. Gregory on 01-04-2023 Thin prep Papanicolaou smear with manual screening 16 U/L 15-37 [facility] Thin prep Papanicolaou smear with manual screening 10 5-15 [facility] Whole blood hemoglobin A1c/t otal hemoglobin ratio (mass fraction)Ordered By: Dr. Gregory on 01-04-2023 HbA1c (Bld) [Mass fraction] 6.3 % 3.8-5.6 [facility] Comment on above: Normal < 5.7 % Predi abetic 5.7 - 6.4 % Diabetic >or= 6.5 % Please note range changes. CNOVon 12-12-2022 CNOV Office Visit (NRMDN) KEVIN GRIFFITH ([id number]) 1945 M Date Time Provider Department 12/12/22 2:00 PM LENI RUIZ During your visit today, we recorded the following information about you: Weight Height 118.3 kg 1.778 m Leni Ruiz APRN.CAR REPAIRMAN 12/13/2022 10:48 PM Signed [facility] - FOLLOW UP EVALUATION Ron Cooley MD [address] [facility] [id number] Dear Ron Cooley MD: I had the [...] Flowsheet Row OT/PT/Speech Visit from 10/04/2022 in [facility] OT/PT/Speech Visit from 08/25/2022 in [facility] T [...] Current [facility]pa (more content not included)... [facility] Tele[facility] (NRMDN) NACHOKEVIN Ríos ([id number]) 1945 M Date Time Provider Department 10/10/22 JAYLYN NIEVES During your visit today, we recorded the following information about you: Seven Harrison RN 10/10/2022 2:45 PM Signed Received voicemail from patient on Mon10/10/2022 9:09 AM Transcript below: Morning this is Kevin Griffith and my phone number is [phone]. I calling to find out if there's [...] Voicemail left directing patient to a detailed [employer] message. Requested reply via MC or RCTO. [...] tablet by mouth twice daily. - fluticasone dsdwnlu-rpksuzaibbcd-wj lanterol (TRELEGY ELLIPTA) 200-62.5-25 mcg powder inhaler [...] Status:Closed by SEVEN HARRISON on 10/10/22 Normal [facility] CNTHERAPYon 10-04-2022 CNTHERAPY OT/PT/Speech Visit (PTMDRG) KEVIN GRIFFITH ([id number]) 1945 M Date Time Provider Department 10/04/22 11:30 AM KORI RYDER Date Time Provider Department Center 10/04/2022 11:30 AM [id number] RYDER [facility] Reason for Visit: Physical Therapy [503] [...] 50 mg tablet - [facility] Inhale as instructed. - FREESTYLE [...] 50 MCG, 2,000 UNIT, GUMMIES) - fluticasone meszkhn-ncdfnlnqrzdo-ky lanterol (TRELEGY ELLIPTA) 200-62.5-25 mcg powder inhaler [...] 80 mg by mouth once daily. Normal [facility] Basophil percentageOrdered B y: Dr. Gregory on 09-16-2022 Chloride [Moles/Vol] 105 mmol/L 98-107 [facility] Glucose [Mass/Vol] 142 mg/dL 74-106 [facility] Comment on above: Fasting Glucose resu lt greater than or equal to 126 mg/dL suggests DIABETES MELLITUS per A.D.A. criteria. Potassium [Moles/Vol] 3.8 mmol/L 3.5-5.1 [facility] Sodium [Moles/Vol] 137 mmol/L 136-145 [facility] Laboratory - Chemistry and C hemistry - challengeOrdered By: Dr. Gregory on 09-16-2022 ALT [Catalytic activity/Vol] 13 U/L 16-61 [facility] CO2 [Moles/Vol] 24.0 mmol/L 21.0-32.0 [facility] Urea nitrogen/Creatinine [Mass ratio] 24.0 mg/mg 10-20 [facility] No Panel InformationOrdered By: Dr. Gregory on 09-16-2022 Estimated GFR (MDRD) Amer 89 mL/min >60 [facility] Comment on above: GFR Calc Estimated GFR (MDRD) Non-Af Amer 73 mL/min >60 [facility] Comment on above: Non- GFR Calc Thyroid Stimulating Hormone (TSH) 1.71 uIU/mL 0.358-3.74 [facility] Serum or plasma calcium walt urement (mass/volume)Ordered By: Dr. Gregory on 09-16-2022 Calcium [Mass/Vol] 9.4 mg/dL 8.5-10.1 [facility] Serum or plasma creatinine m easurement (mass/volume)Ordered By: Dr. Gregory on 09-16-2022 Creatinine [Mass/Vol] 1.04 mg/dL 0.70-1.30 [facility] Comment on above: The validity of the calculated GFR & GFRAA in patients over 70 years has not been determined. Clinical correlation is essential. Serum or plasma urea nitroge n measurement (mass/volume)Ordered By: Dr. Gregory on 09-16-2022 Urea nitrogen [Mass/Vol] 25 mg/dL 7-18 [facility] Thin prep Papanicolaou smear with manual screeningOrdered By: Dr. Gregory on 09-16-2022 Thin prep Papanicolaou smear with manual screening 13 U/L 15-37 [facility] Thin prep Papanicolaou smear with manual screening 8 5-15 [facility] Whole blood hemoglobin A1c/t otal hemoglobin ratio (mass fraction)Ordered By: Dr. Gregory on 09-16-2022 HbA1c (Bld) [Mass fraction] 6.5 % 3.8-5.6 [facility] Comment on above: Normal < 5.7 % Predi abetic 5.7 - 6.4 % Diabetic >or= 6.5 % Please note range changes. CNTHERAPYon 09-15-2022 CNTHERAPY OT/PT/Speech Visit (PTMDRG) KEVIN GRIFFITH ([id number]) 1945 M Date Time Provider Department 09/15/22 4:00 PM KORI RYDER Date Time Provider Department Center 09/15/2022 4:00 PM [id number] RYDER [facility] Reason for Visit: Physical Therapy [503] [...] tablet by mouth twice daily. - fluticasone npkesan-cinrdedrkhaj-sx lanterol (TRELEGY ELLIPTA) 200-62.5-25 mcg powder inhaler [...] Take 80 mg by mouth once daily. [facility] 09-12-2022 [facility] Telephone (NREUS2) KEVIN GRIFFITH ([id number]) 1945 M Date Time Provider Department 09/12/22 JAYLYN NIEVES NRDILIPS2 During your visit today, we recorded the following information about you: Lena Gallo [facility] 09/12/2022 2:37 PM Signed NI PHONE NAME OF CALLER: Brennen RELATIONSHIP TO PATIENT: spouse PATIENT ID'D BY NAME/: yes REASON FOR CALL: States that his PD symptoms are worsening and she would like to speak with Stefania. CALLBACK #: [phone] OK TO LEAVE MESSAGE: ok only on this number - do not leave at home number LAST FUV: 08/04/22 with CAR Harrison, RN 09/13/2022 12:32 PM Signed Returned call to [place]. No reply, left detailed message requesting RCTO. [...] for RCTO and option to message via Explore Eng[employer]. YVONNE Naik, RN September 16, 2022 8:48 [...] mg tablet (more content not included)... Normal [facility] CNTHERAPYon 08-25-2022 CNTHERAPY OT/PT/Speech Visit (PTMDRG) KEVIN GRIFFITH ([id number]) 1945 M Date Time Provider Department 08/25/22 5:30 PM OKRI RYDER Date Time Provider Department Center 08/25/2022 5:30 PM [id number] RYDER [facility] Reason for Visit: Physical Therapy [503] [...] tablet by mouth twice daily. - fluticasone ysjitab-yjpmyfmtktgo-tu lanterol (TRELEGY ELLIPTA) 200-62.5-25 mcg powder inhaler [...] mg by mouth once daily. [facility] CNTHERAPYon 08-11-2022 CNTHERAPY OT/PT/Speech Visit (PTMDRG) KEVIN GRIFFITH ([id number]) 1945 M Date Time Provider Department 08/11/22 1:00 PM KORI RYDERLluvia Date Time Provider Department [place] 08/11/2022 1:00 PM [id number] RYDERLluvia [facility] Reason for Visit: PT Eval [747] [...] tablet by mouth twice daily. - fluticasone qidgqrs-ryoetcdhfqpn-ca lanterol (TRELEGY ELLIPTA) 200-62.5-25 mcg powder inhaler [...] Take 80 mg by mouth once daily. [facility] 08-04-2022 CN Office Visit (NRMDN) KEVIN GRIFFITH ([id number]) 1945 M Date Time Provider Department 08/04/22 2:00 PM JAYLYN NIEVES During your visit today, we recorded the following information about you: Pulse Respiration Blood pressure 107/minute 16/minute 109/86 Jaylyn Nieves MD 08/04/2022 5:35 PM Signed [facility] - FOLLOW UP EVALUATION Ron Cooley MD [address] [address] [facility] [address] I had the pleasure of seeing Mr. [...] 1 tablet by mouth twice daily. fluticasone pzvrkqk-hnskfgpnssua-yu lanterol (TRELEGY ELLIPTA) 200-62.5-25 mcg powder inhaler Inhale 1 Puff as instructed once daily. aspirin, enteric coated (ASPIRIN, ENTERIC COATED) 81 mg EC tablet Take 81 mg by mouth once daily. tamsulosin (FLOMAX) 0.4 mg Take 0.4 m (more content not included)... Normal [facility] No Panel Informationon 08-01 Prostate Specific Antigen Screen 5.11 ng/mL 0.00-4.00 [facility] Work Phone: Comment on above: This test was perfor med using the TPSA assay method for Penxy system. Values obtained with differentassay methods cannot be used interchangably.When changing PSA assays in the course of monitoring apatient, additional sequential testing should be carriedout to confirm baseline values. Anabelle 07-21-2022 JUMA Telephone (NRSEAN) LAINEYKEVIN WEEMS ([id number]) 1945 M Date Time Provider Department 07/21/22 JAYLYN NIEVES During your visit today, we recorded the following information about you: Seven Harrison RN 07/21/2022 1:09 PM Signed Received voicemail from patient's on [place] 07/21/2022 10:52 AM Transcript below: Kaila my name is Brennen Griffith. My 's name is Kevin Griffith. He is a patient of Dr. Gordillo. My phone number is [phone]. I'm calling to speak to somebody regarding [...] Updates shared with MD CAR AND JANY PROFESSIONAL SYSTEM ADMINISTRATOR. If any guidance is suggested, RN will [...] Status:Closed by SEVEN HARRISON on 07/21/22 Normal [facility] No Panel Informationon 06-21 Urine Microalbumin/Creatinine Ratio 12.4 mg/g CRE <30 [facility] Work Phone: Thin prep Papanicolaou smear with manual screeningon 06-21-2022 Thin prep Papanicolaou smear with manual screening 17.8 mg/L NO RANGE EST. [facility] Work Phone: Urine creatinine measurement (mass/volume)on 06-21-2022 Creatinine (U) [Mass/Vol] 144.00 mg/dL NO RANGE EST. [facility] Work Phone: Basophil percentageon 2021 Chloride [Moles/Vol] 102 mmol/L 98-107 [facility] Work Phone: Cholesterol [Mass/Vol] 140 mg/dL <200 [facility] Work Phone: Comment on above: <200 mg/dL Desirable 200-240 mg/dL Borderline >240 mg/dL High Risk Glucose [Mass/Vol] 224 mg/dL 74-106 [facility] Work Phone: Comment on above: Glucose result great er than or equal to 200 mg/dLsuggests DIABETES MELLITUS per A.D.A. criteria. Potassium [Moles/Vol] 3.9 mmol/L 3.5-5.1 [facility] Work Phone: Sodium [Moles/Vol] 137 mmol/L 136-145 [facility] Work Phone: Triglyceride [Mass/Vol] 161 mg/dL <199 [facility] Work Phone: Comment on above: The drugs N-Acetylcy steine and Metamizole may falsely depress this assay.Serum Triglycerides Reference Interval Normal <150 mg/dL Borderline high 150 - 199 mg/dL High 200 - 499 mg/dL Very High > or = 500 mg/dL Laboratory - Chemistry and C hemistry - challengeon 06-20-2022 ALT [Catalytic activity/Vol] 21 U/L 16-61 [facility] Work Phone: CO2 [Moles/Vol] 29.0 mmol/L 21.0-32.0 [facility] Work Phone: Urea nitrogen/Creatinine [Mass ratio] 21.7 mg/mg 10-20 [facility] Work Phone: No Panel Informationon 06-20 Estimated GFR (MDRD) Amer 75 mL/min >60 [facility] Work Phone: Comment on above: GFR Calc Estimated GFR (MDRD) Non-Af Amer 62 mL/min >60 [facility] Work Phone: Comment on above: Non- GFR Calc Serum or plasma calcium walt urement (mass/volume)on 06-20-2022 Calcium [Mass/Vol] 8.8 mg/dL 8.5-10.1 [facility] Work Phone: Serum or plasma cholesterol in HDL measurement (mass/volume)on 06-20-2022 Cholesterol in HDL [Mass/Vol] 47 mg/dL >40 [facility] Work Phone: [phone] Comment on above: The drugs N-Acetylcy steine and Metamizole may falsely depress this assay. Reference Range HDL <40 mg/dL Low HDL Cholesterol HDL >or= 60 mg/dL High HDL Cholesterol Serum or plasma cholesterol in VLDL measurement (mass/volume)on 06-20-2022 Cholesterol in VLDL [Mass/Vol] 32 mg/dL 5-40 [facility] Work Phone: Serum or plasma creatinine m easurement (mass/volume)on 06-20-2022 Creatinine [Mass/Vol] 1.20 mg/dL 0.70-1.30 [facility] Work Phone: Comment on above: The validity of the calculated GFR & GFRAA in patients over 70 years has not been determined. Clinical correlation is essential. Serum or plasma low density lipoprotein (LDL) cholesterol measurement (mass/volume)on 06-20-2022 Cholesterol in LDL [Mass/Vol] 61 mg/dL 0-130 [facility] Work Phone: Serum or plasma urea nitroge n measurement (mass/volume)on 06-20-2022 Urea nitrogen [Mass/Vol] 26 mg/dL 7-18 [facility] Work Phone: Thin prep Papanicolaou smear with manual screeningon 06-20-2022 Thin prep Papanicolaou smear with manual screening 17 U/L 15-37 [facility] Work Phone: Thin prep Papanicolaou smear with manual screening 6 5-15 [facility] Work Phone: Whole blood hemoglobin A1c/t otal hemoglobin ratio (mass fraction)on 06-20-2022 HbA1c (Bld) [Mass fraction] 6.7 % 3.8-5.6 [facility] Work Phone: Comment on above: Normal < 5.7 % Predi abetic 5.7 - 6.4 % Diabetic >or= 6.5 % Please note range changes. Absolute lymphocyte counton 04-25-2022 Lymphocytes Auto (Unsp spec) [#/Vol] 3.24 10*3/uL 0.83-4.51 [facility] Work Phone: Basophil percentageon 04-25- 2021 Basophil percentage 0-5 SEEN /hpf 0-[address] [facility] Work Phone: Basophils/100 WBC (Bld) 1.2 % 0-1 [facility] Work Phone: [phone] Bilirubin [Mass/Vol] 0.70 mg/dL 0.20-1.00 [facility] Work Phone: Comment on above: For patients on eltr ombopag therapy, use of Dimension [place] TBIL is not recommended. Chloride [Moles/Vol] 103 mmol/L 98-107 [facility] Work Phone: Cholesterol [Mass/Vol] 138 mg/dL <200 [facility] Work Phone: Comment on above: <200 mg/dL Desirable 200-240 mg/dL Borderline >240 mg/dL High Risk Eosinophils/100 WBC (Bld) 2.6 % 0-5 [facility] Work Phone: Glucose [Mass/Vol] 168 mg/dL 74-106 [facility] Work Phone: Comment on above: Fasting Glucose resu lt greater than or equal to 126 mg/dL suggests DIABETES MELLITUS per A.D.A. criteria. Neutrophils (Bld) [#/Vol] 4.2 10*3/uL 2.0-7.7 [facility] Work Phone: Neutrophils/100 WBC (Bld) 46.5 % 47-70 [facility] Work Phone: Potassium [Moles/Vol] 3.9 mmol/L 3.5-5.1 [facility] Work Phone: Protein [Mass/Vol] 7.3 g/dL 6.4-8.2 [facility] Work Phone: [phone] Sodium [Moles/Vol] 137 mmol/L 136-145 [facility] Work Phone: [phone] Triglyceride [Mass/Vol] 193 mg/dL <199 [facility] Work Phone: Comment on above: The drugs N-Acetylcy steine and Metamizole may falsely depress this assay.Serum Triglycerides Reference Interval Normal <150 mg/dL Borderline high 150 - 199 mg/dL High 200 - 499 mg/dL Very High > or = 500 mg/dL WBC (Bld) [#/Vol] 8.9 10*3/uL 4.4-11.0 [facility] Work Phone: Bilirubin Test strip Ql (U)o n 04-25-2022 Bilirubin Ql (U) Negative Negative [facility] Work Phone: Blood erythrocytes count (nu mber/volume)on 04-25-2022 RBC (Bld) [#/Vol] 4.66 10*6/uL 4.6-6.2 [facility] Work Phone: Blood hemoglobin measurement (mass/volume)on 04-25-2022 Hemoglobin (Bld) [Mass/Vol] 14.6 g/dL 13.0-16.5 [facility] Work Phone: Blood lymphocytes/100 leukoc yteson 04-25-2022 Lymphocytes/100 WBC (Bld) 36.4 % 19-41 [facility] Work Phone: Blood monocytes/100 leukocyt eson 04-25-2022 Monocytes/100 WBC (Bld) 12.6 % 0-10 [facility] Work Phone: Blood platelet mean volumeon 04-25-2022 Platelet mean volume (Bld) [Entitic vol] 10.1 fL 6.2-12.0 [facility] Work Phone: Determination of erythrocyte mean corpuscular volume (MCV)on 04-25-2022 MCV (RBC) [Entitic vol] 93.3 fL 80-94 [facility] Work Phone: Hematocrit Auto (Bld) [Volum e fraction]on 04-25-2022 Hematocrit (Bld) [Volume fraction] 43.5 % 40-54 [facility] Work Phone: Ketones Test strip Ql (U)on 04-25-2022 Ketones Ql (U) 5 mg/dl Negative [facility] Work Phone: Laboratory - Chemistry and C hemistry - challengeon 04-25-2022 ALP [Catalytic activity/Vol] 62 U/L 45-117 [facility] Work Phone: ALT [Catalytic activity/Vol] 25 U/L 16-61 [facility] Work Phone: CO2 [Moles/Vol] 25.0 mmol/L 21.0-32.0 [facility] Work Phone: Cobalamin (Vitamin B12) [Mass/Vol] 1930 pg/mL 211-911 [facility] Work Phone: Globulin (S) [Mass/Vol] 3.6 g/dL 2.2-4.2 [facility] Work Phone: Urea nitrogen/Creatinine [Mass ratio] 19.8 mg/mg 10-20 [facility] Work Phone: Laboratory - Hematology and Cell countson 04-25-2022 Erythrocyte distribution width (RBC) [Entitic vol] 46.3 fL 35.1-43.9 [facility] Work Phone: Erythrocyte distribution width (RBC) [Ratio] 13.6 % 11.6-14.6 [facility] Work Phone: Immature granulocytes/100 WBC (Bld) 0.700 % 0.0-0.9 [facility] Work Phone: Comment on above: IG% - Immature Granu locytes (promyelocytes, myelocytes and metamyelocytes) > 1% indicates that a LEFT SHIFT is Present. MCH (RBC) [Entitic mass] 31.3 pg 27.0-32.0 [facility] Work Phone: Nucleated RBC/100 WBC (Bld) [Ratio] 0 % 0-5 [facility] Work Phone: MCHC Auto (RBC) [Mass/Vol]on 04-25-2022 MCHC (RBC) [Mass/Vol] 33.6 g/dL 32-36 [facility] Work Phone: Mucus LM Ql (Urine sed)on Mucus Ql (Urine sed) 0 SEEN /hpf [facility] Work Phone: Nitrite Test strip Ql (U)on 04-25-2022 Nitrite Ql (U) Negative Negative [facility] Work Phone: No Panel Informationon 04-25 Estimated GFR (MDRD) Amer 87 mL/min >60 [facility] Work Phone: Comment on above: GFR Calc Estimated GFR (MDRD) Non-Af Amer 72 mL/min >60 [facility] Work Phone: Comment on above: Non- GFR Calc Thyroid Stimulating Hormone (TSH) 2.14 uIU/mL 0.358-3.74 [facility] Work Phone: Vitamin D 25-Hydroxy 59.3 ng/mL [facility] Work Phone: Comment on above: Vitamin D 25(OH) Sta tus Range Deficiency <20 ng/mL (50nmol/L) Insufficiency 20 - 30 ng/mL (50 - 75 nmol/L) Sufficiency 30 - 100 ng/mL (75 - 250 nmol/L) Toxicity >100 ng/mL (>250 nmol/L) Platelets bldon 04-25-2022 Platelets (Bld) [#/Vol] 264 10*3/uL 150-450 [facility] Work Phone: Protein Test strip Ql (U)on 04-25-2022 Protein Ql (U) Negative Negative [facility] Work Phone: Serum or plasma albumin walt urement (mass/volume)on 04-25-2022 Albumin [Mass/Vol] 3.7 g/dL 3.2-5.0 [facility] Work Phone: Serum or plasma albumin/glob ulin mass ratioon 04-25-2022 Albumin/Globulin [Mass ratio] 1.0 {ratio} 0.9-2.4 [facility] Work Phone: Serum or plasma calcium walt urement (mass/volume)on 04-25-2022 Calcium [Mass/Vol] 9.1 mg/dL 8.5-10.1 [facility] Work Phone: Serum or plasma cholesterol in HDL measurement (mass/volume)on 04-25-2022 Cholesterol in HDL [Mass/Vol] 43 mg/dL >40 [facility] Work Phone: Comment on above: The drugs N-Acetylcy steine and Metamizole may falsely depress this assay. Reference Range HDL <40 mg/dL Low HDL Cholesterol HDL >or= 60 mg/dL High HDL Cholesterol Serum or plasma cholesterol in VLDL measurement (mass/volume)on 04-25-2022 Cholesterol in VLDL [Mass/Vol] 39 mg/dL 5-40 [facility] Work Phone: Serum or plasma creatinine m easurement (mass/volume)on 04-25-2022 Creatinine [Mass/Vol] 1.06 mg/dL 0.70-1.30 [facility] Work Phone: Comment on above: The validity of the calculated GFR & GFRAA in patients over 70 years has not been determined. Clinical correlation is essential. Serum or plasma folate measu rement (mass/volume)on 04-25-2022 Folate [Mass/Vol] 13.80 ng/mL 3.1-55.4 [facility] Work Phone: Comment on above: Slight Hemolysis, Re sult may be falsely increased. Serum or plasma low density lipoprotein (LDL) cholesterol measurement (mass/volume)on 04-25-2022 Cholesterol in LDL [Mass/Vol] 56 mg/dL 0-130 [facility] Work Phone: Serum or plasma urea nitroge n measurement (mass/volume)on 04-25-2022 Urea nitrogen [Mass/Vol] 21 mg/dL 7-18 [facility] Work Phone: Squamous epithelial cells de tection in urine sediment by light microscopyon 04-25-2022 Epithelial cells.squamous LM Ql (Urine sed) 0 SEEN /hpf 0-5 [facility] Work Phone: Thin prep Papanicolaou smear with manual screeningon 04-25-2022 Thin prep Papanicolaou smear with manual screening 17 U/L 15-37 [facility] Work Phone: Thin prep Papanicolaou smear with manual screening 9 5-15 [facility] Work Phone: Urine blood detectionon 06-0 RBC Ql (U) Negative Negative [facility] Work Phone: RBC Ql (U) 0-5 SEEN /hpf 0-5 [facility] Work Phone: Urine clarityon 04-25-2022 Clarity (U) Clear Clear [facility] Work Phone: Urine color determinationon 04-25-2022 Color (U) Yellow Yellow [facility] Work Phone: Urine glucose detectionon Glucose Ql (U) Normal mg/dl Normal [facility] Work Phone: Urine leukocyte esterase det ection by dipstickon 04-25-2022 Leukocyte esterase Test strip Ql (U) Negative Negative [facility] Work Phone: Urine pHon 04-25-2022 pH (U) 6.0 [pH] 5.0 - 8.0 [facility] Work Phone: Urine sediment bacteria coun t by microscopy (number/high power field)on 04-25-2022 Bacteria LM.HPF (Urine sed) [#/Area] RARE /hpf None Seen [facility] Work Phone: Urine specific gravity measu rementon 04-25-2022 Specific gravity (U) [Rel density] 1.020 1.002-1.030 [facility] Work Phone: Urobilinogen Auto test strip Ql (U)on 04-25-2022 Urobilinogen Ql (U) 4 mg/dl Normal [facility] Work Phone: Whole blood hemoglobin A1c/t otal hemoglobin ratio (mass fraction)on 04-25-2022 HbA1c (Bld) [Mass fraction] 6.6 % 3.8-5.6 [facility] Work Phone: Comment on above: Normal < 5.7 % Predi abetic 5.7 - 6.4 % Diabetic >or= 6.5 % Please note range changes. Laboratory - Drug toxicology on 04-07-2022 Amphetamines Ql (U) Negative <1000 ng[facility]: Benzodiazepines Ql (U) Negative < 200 ng/mL [facility] Work Phone: Cannabinoids Screen Ql (U) Negative < 50 ng/mL [facility] Work Phone: Cocaine Ql (U) Negative < 300 ng/mL [facility] Work Phone: Opiates Ql (U) Negative < 300 ng/mL [facility] Work Phone: No Panel Informationon 04-07 MDMA (Ecstasy) Screen Negative < 500 ng/mL [facility] Work Phone: Miscellaneous Test See comment [facility] Work Phone: Comment on above: [id number] 6+OXYCODONE-B UND (ng/mL) DRUG RESULT SCREEN CUTOFF____ Amphetamines,Urine Negative ng/mL 1000 Amphetamine test includes Amphetamine and Methamphetamine.Barbiturates Negative ng/mL 200Benzodiazepines Negative ng/mL 200Cannabinoid Negative ng/mL 20Cocaine (Metab) Negative ng/mL 300Opiates Negative ng/mL 300 Opiates test includes Codeine, Morphine, Hydromorphone, Hydrocodone. Oxycodone/Oxymorphone,Urine Positive ng/mL 300 Test includes Oxydodone and Oxymorphone. Oxycodone PositiveOxycodone Conf,MS,UR 666 ng/mL 300 Oxymorphone Negative 300 TESTING PERFORMED AT [facility]. ORIGINAL REPORT ON FILE IN LAB CONTAINS ADDITIONAL TEST SITE INFORMATION. Urine Barbiturates Screen Negative < 200 ng/m L [facility] Work Phone: Urine Drug Screen Comment [facility] Work Phone: Comment on above: CONFIRMATORY [...] Urine Methadone Screen Negative < 300 ng/mL [facility] Work Phone: Urine phencyclidine (PCP) de tectionon 04-07-2022 Phencyclidine Ql (U) Negative < 25 ng/mL [facility] Work Phone: CNOVon 03-29-2022 CNOV Office Visit (SPEMML ) KEVIN GRIFFITH ([id number]) 1945 M Date Time Provider Department 03/29/22 [...] by Name and Date of : Yes [facility] SPEECH and [...] position 20-30 minutes following all oral intake SEAT MENDER Recommendations: Swallowing Precautions;Discontinue Speech Therapy Results and [...] MBS (pt reports had MBS done at [place] last year, which pt was told 'he did fine' and no recommendations for follow up ST or diet modifications made) Clinical Swallow [place] Swallow Protocol: Fail Fail: Coughing episodes (x1 throat clear delayed post trial of water) Oral Pharyngeal Swallow Assessment: Within Functional Limits Except Preparatory / Oral Phase: Within Functional Limits Except Mastication: (pt with close attention to mastication-requires extended time) A-P Transit: Suspect impairment Oral Residue: Mildly Impaired Pharyng (more content not included)... Normal [facility] Office Visit (NRMDN) KEVIN GRIFFITH ([id number]) 1945 M Date Time Provider Department 03/29/22 12:30 PM JAYLYN NIEVES During your visit today, we recorded the following information about you: Jaylyn Nieves MD 03/29/2022 7:35 PM Signed [facility] Jaylyn Nieves [address] [facility] [address] Ron Cooley MD [address] [facility] [address] I had the pleasure of seeing Mr. [...] increase Sinemet (more content not included)... Normal [facility] CNTHERAPYon 03-29-2022 CNTHERAPY OT/PT/Speech Visit (PTMDRG) KEVIN GRIFFITH ([id number]) 1945 M Date Time Provider Department 03/29/22 3:30 PM MAINE MEDEL PTMDRG Date Time Provider Department Center 03/29/2022 3:30 PM [id number] MEDEL PTMDRG [facility] Reason for Visit: PT Eval [747] [...] mg by mouth once daily. [facility] CNTHERAPY OT/PT/Speech Visit ([facility]) KEVIN GRIFFITH ([id number]) 1945 M Date Time Provider Department 03/29/22 2:30 PM HEENA ROMANO [facility] Date Time Provider Department Center 03/29/2022 2:30 PM [id number], HEENA [facility] Reason for Visit: OT EVAL [748] [...] Take 80 mg by mouth once daily. [facility] KEVIN GRIFFITH ([id number]) 1945 M Date Time Provider Department 03/23/22 JAYLYN NIEVES [facility] During your visit today, we recorded the [...] Encounter Status:Closed by BRYANNA HAAS on 03/23/22 [facility] Traci 03-17-2022 CNOV Office Visit (NRMDN) KEVIN GRIFFITH ([id number]) 1945 M Date Time Provider Department 03/17/22 3:00 PM JAYLYN NIEVES During your visit today, we recorded the following information about you: Pulse Blood pressure Weight Height 101/minute 120/77 125.8 kg 1.778 m Jaylyn Nieves MD 03/18/2022 4:12 PM Signed [facility] - FOLLOW UP EVALUATION No referring provider defined for this encounter. Ron Cooley MD [address] [facility] [address] I had the pleasure of seeing Mr. [...] to be helpful Interval History Seen at [facility] for surgical evaluation. SDR was too low [...] is be (more content not included)... Normal [facility] Basophil percentageon 2021 Chloride [Moles/Vol] 105 mmol/L 98-107 [facility] Work Phone: Glucose [Mass/Vol] 102 mg/dL 74-106 [facility] Work Phone: Comment on above: Fasting Glucose resu lt from 100 to 125 mg/dL suggests IMPAIRED HOMEOSTASIS per A.D.A. criteria. Potassium [Moles/Vol] 3.5 mmol/L 3.5-5.1 [facility] Work Phone: Sodium [Moles/Vol] 138 mmol/L 136-145 [facility] Work Phone: Laboratory - Chemistry and C hemistry - challengeon 03-10-2022 ALT [Catalytic activity/Vol] 21 U/L 16-61 [facility] Work Phone: CO2 [Moles/Vol] 26.0 mmol/L 21.0-32.0 [facility] Work Phone: Urea nitrogen/Creatinine [Mass ratio] 24.3 mg/mg 10-20 [facility] Work Phone: No Panel Informationon 03-10 Estimated GFR (MDRD) Amer 79 mL/min >60 [facility] Work Phone: Comment on above: GFR Calc Estimated GFR (MDRD) Non-Af Amer 65 mL/min >60 [facility] Work Phone: Comment on above: Non- GFR Calc Serum or plasma calcium walt urement (mass/volume)on 03-10-2022 Calcium [Mass/Vol] 8.8 mg/dL 8.5-10.1 [facility] Work Phone: Serum or plasma creatinine m easurement (mass/volume)on 03-10-2022 Creatinine [Mass/Vol] 1.15 mg/dL 0.70-1.30 [facility] Work Phone: Comment on above: The validity of the calculated GFR & GFRAA in patients over 70 years has not been determined. Clinical correlation is essential. Serum or plasma urea nitroge n measurement (mass/volume)on 03-10-2022 Urea nitrogen [Mass/Vol] 28 mg/dL 7-18 [facility] Work Phone: Thin prep Papanicolaou smear with manual screeningon 03-10-2022 Thin prep Papanicolaou smear with manual screening 21 U/L 15-37 [facility] Work Phone: Thin prep Papanicolaou smear with manual screening 7 5-15 [facility] Work Phone: Whole blood hemoglobin A1c/t otal hemoglobin ratio (mass fraction)on 03-10-2022 HbA1c (Bld) [Mass fraction] 6.5 % 3.8-5.6 [facility] Work Phone: Comment on above: Normal [...] MonDec 15, 2021 5:24:44 PM EST Normal [facility] Comment on above: Order Comment: Injur y/Trauma or Illness?:Illness/Other How long have you had these symptoms (acute/chronic)?:Acute Reason for exam?:resting tremor, Tremor Type of Exam?:Initial Additional signs and symptoms?:n Basophil percentageon 2020 Chloride [Moles/Vol] 104 mmol/L 98-107 [facility] Work Phone: Glucose [Mass/Vol] 148 mg/dL 74-106 [facility] Work Phone: Comment on above: Fasting Glucose resu lt greater than or equal to 126 mg/dL suggests DIABETES MELLITUS per A.D.A. criteria.Please note revised GLUCOSE reference range effective 2017. Potassium [Moles/Vol] 3.9 mmol/L 3.5-5.1 [facility] Work Phone: Sodium [Moles/Vol] 140 mmol/L 136-145 [facility] Work Phone: Laboratory - Chemistry and C hemistry - challengeon 11-15-2021 CO2 [Moles/Vol] 29.0 mmol/L 21.0-32.0 [facility] Work Phone: Urea nitrogen/Creatinine [Mass ratio] 18.5 mg/mg 10-20 [facility] Work Phone: No Panel Informationon 11-15 Estimated GFR (MDRD) Amer 85 mL/min >60 [facility] Work Phone: Comment on above: GFR Calc Estimated GFR (MDRD) Non-Af Amer 70 mL/min >60 [facility] Work Phone: Comment on above: Non- GFR Calc Serum or plasma calcium walt urement (mass/volume)on 11-15-2021 Calcium [Mass/Vol] 9.0 mg/dL 8.5-10.1 [facility] Work Phone: Serum or plasma creatinine m easurement (mass/volume)on 11-15-2021 Creatinine [Mass/Vol] 1.08 mg/dL 0.70-1.30 [facility] Work Phone: Comment on above: The validity of the calculated GFR & GFRAA in patients over 70 years has not been determined. Clinical correlation is essential. Serum or plasma urea nitroge n measurement (mass/volume)on 11-15-2021 Urea nitrogen [Mass/Vol] 20 mg/dL 7-18 [facility] Work Phone: Thin prep Papanicolaou smear with manual screeningon 11-15-2021 Thin prep Papanicolaou smear with manual screening 7 5-15 [facility] Work Phone: Whole blood hemoglobin A1c/t otal hemoglobin ratio (mass fraction)on 11-15-2021 HbA1c (Bld) [Mass fraction] 6.6 % 3.8-5.6 [facility] Work Phone: Comment on above: Normal [...] No other mass effect. Patent basal cisterns. [id number] symmetric global volume loss without lobar predominance. [...] MonNov 02, 2021 8:48:26 AM EST Normal [facility] Comment on above: Order Comment: Injur y/Trauma or Illness?:Illness/Other How long have you had these symptoms (acute/chronic)?:Acute Reason for exam?:trmors Type of Exam?:Initial Additional signs and symptoms?:HIFU protocol Glucose,Bedsideon 05-19-2021 Glucose [Mass/Vol] 137 mg/dL High 70-100 [facility] [employer] Comment on above: Result Comment: Test performed by glucose meter. Results may be 10%-15% lower than serum/plasma values. (CLIA ID [id number]) Performed By: #### B GLU #### [employer] [address] [place] [id number] OPERATIVE REPORTOrdered By: 3m Scanning on 05-19-2021 [facility] Work Phone: POCT GlucoseOrdered By: Nii Altman on 05-19-2021 Glucose [Mass/Vol] 137 mg/dL High 70 - 100 mg/dL [facility] Work Phone: Comment on above: Test performed by gl ucose meter. Results may be 10%-15% lower than serum/plasma values. (CLIA ID [id number]) Interpretation and review of laboratory results Abnormal [facility] Work Phone: Test Performed by [facility], [address] [place] [id number] [facility] Work Phone: [facility] Work Phone: ECHO Pharmacological Stress TestOrdered By: Raeann Holland on 05-11-2021 STRESS ECHOCARDIOGRA M Dobutamine PATIENT: Kevin Griffith STUDY DATE: 05/11/2021 : 1945 AGE: 75 HT/WT: 177.8 cm (70 123.2 kg in) (271 lb) GENDER: M BP: 149 / 83 LOCATION: [facility] PATIENT Outpatient [facility] STATUS: Medical Center *ORDERING PHYSICIAN: * Amalia, *FELLOW: * Wes Montilla MD *SUPERVISING PHYSICIAN: * *RN: * Bessie Duarte Diana *READING PHYSICIAN: * Donnell Valdes MD, *FINANCIAL MANAGEMENT CONSULTANT: * Dai Burnette [facility] -- INDICATIONS: Pre-operative. Shortness of breath. [...] was augmented by the addition of hand gun examiner. The infusion was terminated after achieving the [...] (84) + + (more content not included)... [employer] Work Phone: Brand[facility], [facility] Incoming Cardiology Results From [facility] - 05/11/2021 4:29 PM EDT STRESS ECHOCARDIOGRAM Dobutamine PATIENT: Kevin Griffith STUDY DATE: 05/11/2021 : 1945 AGE: 75 HT/WT: 177.8 cm (70 123.2 kg in) (271 lb) GENDER: M BP: 149 / 83 LOCATION: [facility] PATIENT Outpatient [facility] STATUS: Medical Center *ORDERING PHYSICIAN: Amina Holland, *FELLOW: * Wes Montilla MD *SUPERVISING PHYSICIAN: * *RN: * Bessie Duarte Diana *READING PHYSICIAN: * Donnell Valdes MD, *FINANCIAL MANAGEMENT CONSULTANT: * Dai Burnette [facility] -- INDICATIONS: Pre-operative. Shortness of breath. [...] was augmented by the addition of hand gun examiner. The infusion was terminated after achieving the [...] an appropriate blo (more content not included)... [employer] Work Phone: [employer] Phone: Echo Dobutamine Stress Echo w/wo Conton 05-11-2021 Echo Dobutamine Stress Echo w/wo Cont Patient Name: KEVIN GRIFFITH Ultrasound ACCESSION EXAM DATE/TIME PROCEDURE ORDERING PROVIDER [id number] 05/11/2021 11:00 EDT Echo Dobutamine Stress [facility] Echo w/wo Cont Reason For Exam (Echo Dobutamine Stress Echo w/wo Cont) pre op testing, abnormal EKG, shortness of breath Report STRESS ECHOCARDIOGRAM Dobutamine PATIENT: Kevin Griffith STUDY DATE: 05/11/2021 : 1945 AGE: 75 HT/WT: 177.8 cm (70 123.2 kg in) (271 lb) GENDER: M BP: 149 / 83 LOCATION: [facility] PATIENT Outpatient [facility] STATUS: Medical Center *ORDERING PHYSICIAN: * Amalia, *FELLOW: * Wes Montilla MD *SUPERVISING PHYSICIAN: * *RN: * Bessie Duarte Diana *READING PHYSICIAN: * Donnell Valdes MD, *FINANCIAL MANAGEMENT CONSULTANT: * Dai Burnette [facility] -- INDICATIONS: Pre-operative. Shortness of breath. [...] was augmented by the addition of hand gun examiner. The infusion was terminated after achieving the [...] --+ +-- (more content not included)... Normal [employer] CBCOrdered By: Raeann murillo on 05-05-2021 Hematocrit (Bld) [Volume fraction] 46.8 % 40.0 - 52.0 % [employer] Phone: 222 Hemoglobin.gastrointestin al spec 1 Ql (Stl) 15.9 g/dL 13.0 - 18.0 g/dL [employer] Phone: Interpretation and review of laboratory results Abnormal [employer] Phone: MCH (RBC) [Entitic mass] 31.9 pg 26. 0 - 34.0 pg [employer] Phone: MCHC (RBC) [Mass/Vol] 34.0 % 32.0 - 36.0 % [employer] Phone: MCV (RBC) [Entitic vol] 94.0 fL 80.0 - 98.0 fL [employer] Phone: Platelet distribution width (Bld) [Ratio] 13.6 % 11.5 - 14.5 % [employer] Phone: Platelet mean volume (Bld) [Entitic vol] 9.0 fL 7.4 - 10.4 fL [employer] Phone: 222 Platelets (Bld) [#/Vol] 287 10*3/uL 140 - 440 10*3/uL [employer] Work Phone: 222 RBC (Bld) [#/Vol] 4.98 10*6/uL 4.40 - 5.9 0 10*6/uL [employer] Work Phone: 222 WBC (Bld) [#/Vol] 11.0 10*3/uL High 3.6 - 10.7 10*3/uL [employer] Phone: 222 Test Performed by [facility], [address] [place] [id number] [facility] Work Phone: [facility] Work Phone: Comp Panel with Mg Reflexon 05-05-2021 ALP [Catalytic activity/Vol] 74 U/L Normal 38-126 [facility] Comment on above: Performed By: #### C MP3M, HEMOG #### [facility] [address], [place] ALT [Catalytic activity/Vol] 38 U/L Normal 0-49 [facility] Comment on above: Result Comment: The ALT test is performed by an updated assay method. Please note that the reference intervals have been changed and are now sex specific. Performed By: #### C MP3M, HEMOG #### [facility] [address], [place] AST [Catalytic activity/Vol] 28 U/L Normal 15-46 [facility] Comment on above: Performed By: #### C MP3M, HEMOG #### [facility] [address], [place] Calcium [Mass/Vol] 9.6 mg/dL Normal 8.4-10.4 [facility] Comment on above: Performed By: #### C MP3M, HEMOG #### [facility] [address] [place], [place] Glucose [Mass/Vol] 55 mg/dL Low 70-100 [facility] Comment on above: Performed By: #### C MP3M, HEMOG #### [facility] [address] [place], [place] Protein [Mass/Vol] 8.1 g/dL Normal 6.3-8.2 [facility] Comment on above: Performed By: #### C MP3M, HEMOG #### [facility] [address] [place], [place] Urea nitrogen [Mass/Vol] 23 mg/dL High 7-20 [facility] Comment on above: Performed By: #### C MP3M, HEMOG #### [facility] [address] [place], [place] Anion gap [Moles/Vol] 9 mmol/L Normal 3-13 [facility] Comment on above: Performed By: #### C MP3M, HEMOG #### [facility] [address] [place], [place] Bilirubin [Mass/Vol] 1.3 mg/dL Normal 0.2-1.3 [facility] Comment on above: Performed By: #### C MP3M, HEMOG #### [facility] [address] [place], [place] CO2 [Moles/Vol] 30 mmol/L Normal 22-30 [facility] Comment on above: Performed By: #### C MP3M, HEMOG #### [facility] [address] [place], [place] Creatinine [Mass/Vol] 1.02 mg/dL Normal 0.52-1.25 [facility] Comment on above: Performed By: #### C MP3M, HEMOG #### [facility] [address] [place], [place] GFR/1.73 sq M.predicted among blacks MDRD (S/P/Bld) [Vol rate/Area] 81.9 mL/min/{1.73_m2} Normal >60 [facility] Comment on above: Performed By: #### C MP3M, HEMOG #### [facility] [address] [place], [place] GFR/1.73 sq M.predicted among non-blacks MDRD (S/P/Bld) [Vol rate/Area] 70.7 mL/min/{1.73_m2} Normal >60 [facility] Comment on above: Result Comment: KDIG [...] Performed By: #### C MP3M, HEMOG #### [facility] [address] [place] [address] Albumin [Mass/Vol] 4.8 g/dL Normal 3.5-5.0 [facility] Comment on above: Performed By: #### C MP3M, HEMOG #### [facility] [address] [place] [address] Chloride [Moles/Vol] 101 mmol/L Normal 98-107 [facility] Comment on above: Performed By: #### C MP3M, HEMOG #### [facility] [address] [place] [address] Potassium [Moles/Vol] 3.9 mmol/L Normal 3.5-5.1 [facility] Comment on above: Performed By: #### C MP3M, HEMOG #### [facility] [address] [place] [address] Sodium [Moles/Vol] 140 mmol/L Normal 135-145 [facility] Comment on above: Performed By: #### C MP3M, HEMOG #### [facility] [address] [place] [address] Comprehensive Metabolic Pane l w/ Reflex to MGOrdered By: Raeann Holland on 05-05-2021 Albumin [Mass/Vol] 4.8 g/dL 3.5 - 5.0 g/dL [facility] Work Phone: ALP (Bld) [Catalytic activity/Vol] 74 U/L 38 - 126 U/L [facility] Work Phone: ALT [Catalytic activity/Vol] 38 U/L 0 - 49 U/L [facility] Work Phone: Comment on above: The ALT test is perf ormed by an updated assay method. Please note that the reference intervals have been changed and are now sex specific. Anion gap [Moles/Vol] 9 mmol/L 3 - 13 mmol/L [facility] Work Phone: AST [Catalytic activity/Vol] 28 U/L 15 - 46 U/L [facility] Work Phone: [phone] Bilirubin [Mass/Vol] 1.3 mg/dL 0.2 - 1 .3 mg/dL [facility] Work Phone: [phone] Calcium [Mass/Vol] 9.6 mg/dL 8.4 - 10. 4 mg/dL [facility] Work Phone: [phone] Chloride [Moles/Vol] 101 mmol/L 98 - 10 7 mmol/L [facility] Work Phone: [phone] CO2 [Moles/Vol] 30 mmol/L 22 - 30 mmol/L [facility] Work Phone: [phone] Creatinine [Mass/Vol] 1.02 mg/dL 0.52 - 1.25 mg/dL [facility] Work Phone: [phone] EGFR IF NonAfrican Taiwanese 70.7 mL/min >60 [facility] Work Phone: [phone] Comment on above: KDIGO guidelines pro [...] fraction] 8.1 g/dL 6.3 - 8.2 g/dL [facility] Work Phone: GFR/1.73 sq M.predicted among blacks MDRD (S/P/Bld) [Vol rate/Area] 81.9 mL/min/{1.73_m2} >60 [facility] Work Phone: Glucose [Mass/Vol] 55 mg/dL Low 70 - 100 mg/dL [facility] Work Phone: [phone] Interpretation and review of laboratory results Abnormal [facility] Work Phone: Potassium [Moles/Vol] 3.9 mmol/L 3.5 - 5.1 mmol/L [facility] Work Phone: [phone] Sodium [Moles/Vol] 140 mmol/L 135 - 145 mmol/L [facility] Work Phone: Urea nitrogen (BldV) [Mass/Vol] 23 mg/dL High 7 - 20 mg/dL [facility] Work Phone: [phone] Test Performed by [facility], [address] [place] [id number] [facility] Work Phone: [phone] [facility] Work Phone: Hemogramon 05-05-2021 Erythrocyte distribution width (RBC) [Ratio] 13.6 % Normal 11.5-14.5 [facility] Comment on above: Performed By: #### C MP3M, HEMOG #### [address] [address] Hematocrit (Bld) [Volume fraction] 46.8 % Normal 40.0-52.0 [facility] Comment on above: Performed By: #### C MP3M, HEMOG #### [address] [address] Hemoglobin (Bld) [Mass/Vol] 15.9 g/dL Normal 13.0-18.0 [facility] Comment on above: Performed By: #### C MP3M, HEMOG #### [address] [phone] MCH (RBC) [Entitic mass] 31.9 pg Normal 26.0-34.0 [facility] Comment on above: Performed By: #### C MP3M, HEMOG #### [address] [address] MCHC 34.0 % Normal 32.0-36.0 [facility] Comment on above: Performed By: #### C MP3M, HEMOG #### [place] [place], [place] MCV (RBC) [Entitic vol] 94.0 fL Normal 80.0-98.0 [facility] Comment on above: Performed By: #### C MP3M, HEMOG #### [place] [place], [place] Platelet mean volume (Bld) [Entitic vol] 9.0 fL Normal 7.4-10.4 [facility] Comment on above: Performed By: #### C MP3M, HEMOG #### [place] [address] [place], [place] Platelets (Bld) [#/Vol] 287 10*3/uL Normal 140-440 [facility] Comment on above: Performed By: #### C MP3M, HEMOG #### [address] [place] [address] [place], [place] RBC (Bld) [#/Vol] 4.98 10*6/uL Normal 4.40-5.90 [facility] Comment on above: Performed By: #### C MP3M, HEMOG #### [place] [address] [place], [place] WBC (Bld) [#/Vol] 11.0 10*3/uL High 3.6-10.7 [facility] Comment on above: Performed By: #### C MP3M, HEMOG #### [address] [place], [place] TS GELon 05-05-2021 TS GEL ABO Group: A Rh, Gel: POS Antibody Screen Gel: NEG Normal [facility] Comment on above: Performed By: #### T SGL #### [facility] TYPE AND SCREENOrdered By: Khushbu Holland on 05-05-2021 ABO Grouping A [facility] Work Phone: Rh Type Positive [facility] Work Phone: Test Performed by [facility], [facility] [place], [place] [facility] Work Phone: [facility] Work Phone: Otheron 08-16-2006 CONVERTED ELECTRONIC SIGNATURE KENNY SIMPSON M.D., PATHOLOGIST (Electronic signature on file) Final Signed Out: 08/16/2006 12:36 [facility] CONVERTED FINAL DIAGNOSIS LEFT KNEE, EXC ISION - DEGENERATIVE CHANGES OF ARTICULAR CARTILAGE CONSISTENT WITH OSTEOARTHRITIS. [facility] CONVERTED ORDERING PROVIDER Ordering Provider: WYATT NOBLE [facility] Otheron 02-06-2006 CONVERTED ELECTRONIC SIGNATURE BILL MELTON M.D., PATHOLOGIST (Electronic signature on file) Final Signed Out: 02/06/2006 15:13 [facility] CONVERTED FINAL DIAGNOSIS LEFT KNEE, EXC ISION - FIBROCARTILAGE WITH DEGENERATIVE CHANGES. SYNOVIUM WITH NONSPECIFIC REACTIVE CHANGES. [facility] CONVERTED ORDERING PROVIDER Ordering Provider: WYATT NOBLE [facility] Vital Signs Date Time Vital Sign Value Performing Clinician Facility 05-11-2025 19:06-0400 Body temperature 98.4 [degF] Dr. Ron Cooley MD Work Phone: [facility] 05-11-2025 19:06-0400 Diastolic blood pressure 69 mm[Hg] Dr. Ron Cooley MD Work Phone: [facility] 05-11-2025 19:06-0400 Heart rate 72 /min Dr. Ron Cooley MD Work Phone: [facility] 05-11-2025 19:06-0400 Respiratory rate 16 /min Dr. Ron Cooley MD Work Phone: [facility] 05-11-2025 19:06-0400 SaO2% (BldA) [Mass fraction] 97 % Dr. Ron Cooley MD Work Phone: [facility] 05-11-2025 19:06-0400 Systolic blood pressure 138 mm[Hg] Dr. Ron Cooley MD Work Phone: [facility] 05-11-2025 17:49-0400 Body height 177.[address] Ron Cooley MD Work Phone: [facility] 05-11-2025 17:49-0400 Body mass index (BMI) [Ratio] 36.6 kg/m2 Dr. Ron Cooley MD Work Phone: [facility] 05-11-2025 17:49-0400 Body weight [address] Ron Cooley MD Work Phone: [facility] 04-13-2025 22:27-0400 Diastolic blood pressure 75 mm[Hg] FINA Powell MD Work Phone: [facility] 04-13-2025 22:27-0400 Heart rate 77 /min FINA Powell MD Work Phone: [facility] 04-13-2025 22:27-0400 Respiratory rate 20 /min FINA Powell MD Work Phone: [facility] 04-13-2025 22:27-0400 SaO2% (BldA) [Mass fraction] 97 % FINA Powell MD Work Phone: [facility] 04-13-2025 22:27-0400 Systolic blood pressure 133 mm[Hg] FINA Powell MD Work Phone: [facility] 04-13-2025 20:40-0400 Body temperature 98.01 [degF] FINA Powell MD Work Phone: [facility] 04-09-2025 13:13-0400 Body temperature 96.8 [degF] Dr. Ron Cooley MD Work Phone: [facility] 04-09-2025 13:13-0400 Diastolic blood pressure 65 mm[Hg] Dr. Ron Cooley MD Work Phone: [facility] 04-09-2025 13:13-0400 Heart rate 76 /min Dr. Ron Cooley MD Work Phone: [facility] 04-09-2025 13:13-0400 Respiratory rate 18 /min Dr. Ron Cooley MD Work Phone: [facility] 04-09-2025 13:13-0400 SaO2% (BldA) [Mass fraction] 98 % Dr. Ron Cooley MD Work Phone: [facility] 04-09-2025 13:13-0400 Systolic blood pressure 145 mm[Hg] Dr. Ron Cooley MD Work Phone: 5(761)356-139042 [place] [address] 04-09-2025 11:18-0400 Body height [address] Ron Cooley MD Work Phone: 2(749)688-022242 [place] [address] 04-09-2025 11:18-0400 Body mass index (BMI) [Ratio] 35.8 kg/m2 Dr. Ron Cooley MD Work Phone: 8(628)153-577142 [place] [address] 04-09-2025 11:18-0400 Body weight 113.[address] Ron Cooley MD Work Phone: 6(091)985-833609 [place] [address] 03-20-2025 16:23-0400 Diastolic blood pressure 78 mm[Hg] Dr. Ron Cooley MD Work Phone: 4(966)621-217809 [place] [address] 03-20-2025 16:23-0400 Systolic blood pressure 164 mm[Hg] Dr. Ron Cooley MD Work Phone: 2(185)645-030109 [place] [address] 03-20-2025 15:16-0400 Body height 177.[address] Ron Cooley MD Work Phone: 9(466)256-930809 [place] [address] 03-20-2025 15:16-0400 Body mass index (BMI) [Ratio] 34.9 kg/m2 Dr. Ron Cooley MD Work Phone: 4(773)408-919642 [place] [address] 03-20-2025 15:16-0400 Body temperature 98.2 [degF] Dr. Ron Cooley MD Work Phone: 4(629)796-648709 [address] 03-20-2025 15:16-0400 Body weight 110.[address] Ron Cooley MD Work Phone: 0(268)392-290842 [place] [address] 03-20-2025 15:16-0400 Diastolic blood pressure 72 mm[Hg] Dr. Ron Cooley MD Work Phone: 9(670)295-894109 [address] 03-20-2025 15:16-0400 Heart rate 86 /min Dr. Ron Cooley MD Work Phone: 3(461)752-967342 [place] [address] 03-20-2025 15:16-0400 Respiratory rate 15 /min Dr. Ron Cooley MD Work Phone: 6(978)251-224009 [place] [address] 03-20-2025 15:16-0400 SaO2% (BldA) [Mass fraction] 95 % Dr. Ron Cooley MD Work Phone: 7(603)537-209309 [place] [address] 03-20-2025 15:16-0400 Systolic blood pressure 134 mm[Hg] Dr. Ron Cooley MD Work Phone: 1(763)405-442709 [place] [address] 02-14-2025 21:12-0400 Body height 177.[address] Ron Cooley MD Work Phone: 3(873)923-030909 [place] [address] 02-14-2025 21:12-0400 Body temperature 97.3 [degF] Dr. Ron Cooley MD Work Phone: 4(293)870-374809 [place] [address] 02-14-2025 21:12-0400 Diastolic blood pressure 60 mm[Hg] Dr. Ron Cooley MD Work Phone: 7(390)758-383009 [place] [address] 02-14-2025 21:12-0400 Heart rate 93 /min Dr. Ron Cooley MD Work Phone: 9(568)882-020409 [place] [address] 02-14-2025 21:12-0400 Respiratory rate 18 /min Dr. Ron Cooley MD Work Phone: 2(702)349-957109 [place] [address] 02-14-2025 21:12-0400 SaO2% (BldA) [Mass fraction] 92 % Dr. Ron Cooley MD Work Phone: 1(631)274-908409 [place] [address] 02-14-2025 21:12-0400 Systolic blood pressure 137 mm[Hg] Dr. Ron Cooley MD Work Phone: 0(446)388-902409 [place] [address] 02-06-2025 14:25-0400 Diastolic blood pressure 64 mm[Hg] Dr. Ron Cooley MD Work Phone: 8(250)880-118709 [place] [address] 02-06-2025 14:25-0400 Systolic blood pressure 116 mm[Hg] Dr. Ron Cooley MD Work Phone: 7(483)674-594142 [place] [address] 02-06-2025 12:56-0400 Body temperature 97.8 [degF] Dr. Ron Cooley MD Work Phone: 2(421)941-046209 [place] [address] 02-06-2025 12:56-0400 Body weight 110.[address] Ron Cooley MD Work Phone: 9(045)920-656909 [place] [address] 02-06-2025 12:56-0400 Heart rate 82 /min Dr. Ron Cooley MD Work Phone: 6(061)006-558709 [place] [address] 02-06-2025 12:56-0400 Respiratory rate 17 /min Dr. Ron Cooley MD Work Phone: 4(825)073-247409 [place] [address] 02-06-2025 12:56-0400 SaO2% (BldA) [Mass fraction] 95 % Dr. Ron Cooley MD Work Phone: 1(488)480-313809 [place] [address] 12-10-2024 14:30-0500 Diastolic blood pressure 70 mm[Hg] Dr. Ron Cooley MD Work Phone: 6(133)199-393709 [place] [address] 12-10-2024 14:30-0500 Systolic blood pressure 130 mm[Hg] Dr. Ron Cooley MD Work Phone: 0(604)291-301609 [place] [address] 12-10-2024 10:36-0500 Body height 177.[address] Ron Cooley MD Work Phone: 5(111)372-027409 [place] [address] 12-10-2024 10:36-0500 Body mass index (BMI) [Ratio] 34.7 kg/m2 Dr. oRn Cooley MD Work Phone: 0(339)863-490409 [place] [address] 12-10-2024 10:36-0500 Body temperature 97.7 [degF] Dr. Ron Cooley MD Work Phone: 3(391)382-421809 [place] [address] 12-10-2024 10:36-0500 Body weight 109.[address] Ron Cooley MD Work Phone: 8(090)886-962409 [place] [address] 12-10-2024 10:36-0500 Heart rate 77 /min Dr. Ron Cooley MD Work Phone: [facility] 12-10-2024 10:36-0500 Respiratory rate 14 /min Dr. Ron Cooley MD Work Phone: [facility] 12-10-2024 10:36-0500 SaO2% (BldA) [Mass fraction] 97 % Dr. Ron Cooley MD Work Phone: 8(325)514-584642 [place] [address] 12-05-2024 19:35-0500 Body temperature 98 [degF] Dr. Ron Cooley MD Work Phone: 2(308)733-994809 [address] 12-05-2024 19:35-0500 Diastolic blood pressure 75 mm[Hg] Dr. Ron Cooley MD Work Phone: 7(037)700-403642 [place] [address] 12-05-2024 19:35-0500 Heart rate 67 /min Dr. Ron Cooley MD Work Phone: 6(470)155-834742 [place] [address] 12-05-2024 19:35-0500 Respiratory rate 18 /min Dr. Ron Cooley MD Work Phone: 5(756)748-992209 [address] 12-05-2024 19:35-0500 SaO2% (BldA) [Mass fraction] 97 % Dr. Ron Cooley MD Work Phone: 2(013)400-767342 [place] [address] 12-05-2024 19:35-0500 Systolic blood pressure 118 mm[Hg] Dr. Ron Cooley MD Work Phone: 1(690)911-454042 [place] [address] 12-05-2024 17:15-0500 Body mass index (BMI) [Ratio] 34.5 kg/m2 Dr. Ron Cooley MD Work Phone: 8(680)120-904442 [place] [address] 12-05-2024 17:15-0500 Body weight 109.[address] Ron Cooley MD Work Phone: 8(794)451-078542 [place] [address] 10-12-2024 13:02-0500 Body temperature 98.2 [degF] Dr. Ron Cooley MD Work Phone: 9(618)551-793642 [place] [address] 10-12-2024 13:02-0500 Diastolic blood pressure 84 mm[Hg] Dr. Ron Cooley MD Work Phone: [facility] 10-12-2024 13:02-0500 Heart rate 78 /min Dr. Ron Cooley MD Work Phone: [facility] 10-12-2024 13:02-0500 Respiratory rate 16 /min Dr. Ron Cooley MD Work Phone: 6(430)639-283642 [place] [address] 10-12-2024 13:02-0500 SaO2% (BldA) [Mass fraction] 95 % Dr. Ron Cooley MD Work Phone: 2(317)428-707242 [place] [address] 10-12-2024 13:02-0500 Systolic blood pressure 121 mm[Hg] Dr. Ron Cooley MD Work Phone: 6(633)316-365342 [place] [address] 10-12-2024 11:16-0500 Body mass index (BMI) [Ratio] 35.6 kg/m2 Dr. Ron Cooley MD Work Phone: 6(910)439-873342 [place] [address] 10-12-2024 11:16-0500 Body weight 112.[address] Ron Cooley MD Work Phone: 1(587)508-917142 [place] [address] 03-25-2024 14:24-0400 Body height 177.[address] Ron Cooley Work Phone: 8(514)451-129642 [place] [address] 03-25-2024 14:24-0400 Body mass index (BMI) [Ratio] 36.3 kg/m2 Dr. Ron Cooley Work Phone: [facility] 03-25-2024 14:24-0400 Body temperature 98 [degF] Dr. Ron Cooley Work Phone: [facility] 03-25-2024 14:24-0400 Body weight 114.[address] Ron Cooley Work Phone: [facility] 03-25-2024 14:24-0400 Diastolic blood pressure 58 mm[Hg] Dr. Ron Cooley Work Phone: 1(399)581-104642 [place] [address] 03-25-2024 14:24-0400 Heart rate 78 /min Dr. Ron Cooley Work Phone: [facility] 03-25-2024 14:24-0400 Respiratory rate 17 /min Dr. Ron Cooley Work Phone: [facility] 03-25-2024 14:24-0400 SaO2% (BldA) [Mass fraction] 94 % Dr. Ron Cooley Work Phone: [facility] 03-25-2024 14:24-0400 Systolic blood pressure 124 mm[Hg] Dr. Ron Cooley Work Phone: [facility] 11-23-2023 14:02-0500 Body height 177.[address] Ron Cooley Work Phone: [facility] 11-23-2023 14:02-0500 Body mass index (BMI) [Ratio] 37 kg/m2 Dr. Ron Cooley Work Phone: [facility] 11-23-2023 14:02-0500 Body temperature 97.8 [degF] Dr. Ron Cooley Work Phone: [facility] 11-23-2023 14:02-0500 Body weight 117.[address] Ron Cooley Work Phone: [facility] 11-23-2023 14:02-0500 Diastolic blood pressure 84 mm[Hg] Dr. Ron Cooley Work Phone: [facility] 11-23-2023 14:02-0500 Heart rate 75 /min Dr. Ron Cooley Work Phone: [facility] 11-23-2023 14:02-0500 Respiratory rate 17 /min Dr. Ron Cooley Work Phone: [facility] 11-23-2023 14:02-0500 SaO2% (BldA) [Mass fraction] 93 % Dr. Ron Cooley Work Phone: [facility] 11-23-2023 14:02-0500 Systolic blood pressure 112 mm[Hg] Dr. Ron Cooley Work Phone: [facility] 08-07-2023 14:26-0400 Body height 177.[address] Ron Cooley Work Phone: [facility] 08-07-2023 14:26-0400 Body mass index (BMI) [Ratio] 38 kg/m2 Dr. Ron Cooley Work Phone: [facility] 08-07-2023 14:26-0400 Body temperature 98.4 [degF] Dr. Ron Cooley Work Phone: [facility] 08-07-2023 14:26-0400 Body weight 120.[address] Ron Cooley Work Phone: [facility] 08-07-2023 14:26-0400 Diastolic blood pressure 88 mm[Hg] Dr. Ron Cooley Work Phone: [facility] 08-07-2023 14:26-0400 Heart rate 74 /min Dr. Ron Cooley Work Phone: [facility] 08-07-2023 14:26-0400 Respiratory rate 17 /min Dr. Ron Cooley Work Phone: [facility] 08-07-2023 14:26-0400 SaO2% (BldA) [Mass fraction] 96 % Dr. Ron Cooley Work Phone: [facility] 08-07-2023 14:26-0400 Systolic blood pressure 138 mm[Hg] Dr. Ron Cooley Work Phone: [facility] 04-12-2023 10:15-0400 Body height 177.[address] Ron Cooley Work Phone: [facility] 04-12-2023 10:15-0400 Body mass index (BMI) [Ratio] 37 kg/m2 Dr. Ron Cooley Work Phone: [facility] 04-12-2023 10:15-0400 Body weight 117.[address] Ron Cooley Work Phone: [facility] 04-12-2023 10:15-0400 Diastolic blood pressure 70 mm[Hg] Dr. Ron Cooley Work Phone: [facility] 04-12-2023 10:15-0400 Heart rate 60 /min Dr. Ron Cooley Work Phone: [facility] 04-12-2023 10:15-0400 Respiratory rate 18 /min Dr. Ron Cooley Work Phone: [facility] 04-12-2023 10:15-0400 Systolic blood pressure 119 mm[Hg] Dr. Ron Cooley Work Phone: [facility] 04-11-2023 21:17-0400 Diastolic blood pressure 74 mm[Hg] Dr. Ron Cooley Work Phone: [facility] 04-11-2023 21:17-0400 Systolic blood pressure 124 mm[Hg] Dr. Ron Cooley Work Phone: [facility] 04-11-2023 21:16-0400 Heart rate 61 /min Dr. Ron Cooley Work Phone: [facility] 04-11-2023 09:55-0400 Body mass index (BMI) [Ratio] 37.3 kg/m2 Dr. Ron Cooley Work Phone: [facility] 04-11-2023 09:55-0400 Body temperature 97.8 [degF] Dr. Ron Cooley Work Phone: [facility] 04-11-2023 09:55-0400 Body weight 118.[address] Ron Cooley Work Phone: [facility] 04-11-2023 09:55-0400 Diastolic blood pressure 66 mm[Hg] Dr. Ron Cooley Work Phone: [facility] 04-11-2023 09:55-0400 Heart rate 70 /min Dr. Ron Cooley Work Phone: [facility] 04-11-2023 09:55-0400 Respiratory rate 17 /min Dr. Ron Cooley Work Phone: [facility] 04-11-2023 09:55-0400 SaO2% (BldA) [Mass fraction] 98 % Dr. Ron Cooley Work Phone: [facility] 04-11-2023 09:55-0400 Systolic blood pressure 140 mm[Hg] Dr. Ron Cooley Work Phone: [facility] 02-11-2023 12:46-0400 Body height 177.8 cm [facility] 02-11-2023 12:46-0400 Body mass index (BMI) [Ratio] 36.8 kg/m2 [facility] 02-11-2023 12:46-0400 Body temperature 97 [degF] [facility] 02-11-2023 12:46-0400 Body weight 116.52 kg [facility] 02-11-2023 12:46-0400 Diastolic blood pressure 68 mm[Hg] [facility] 02-11-2023 12:46-0400 Heart rate 82 /min [facility] 02-11-2023 12:46-0400 Respiratory rate 18 /min [facility] 02-11-2023 12:46-0400 SaO2% (BldA) [Mass fraction] 97 % [facility] 02-11-2023 12:46-0400 Systolic blood pressure 149 mm[Hg] [facility] 12-12-2022 13:47-0500 Body height 177.8 cm Leni Ruiz APRN.[employer] Work Phone: [facility] 12-12-2022 13:47-0500 Body weight 118.3 kg Leni Riuz APRN.[employer] RE[employer] Work Phone: [facility] 12-12-2022 13:47-0500 SaO2% (BldA) [Mass fraction] 96 % Leni Ruiz APRN.[employer] REPA[employer] Work Phone: [facility] 08-04-2022 13:56-0400 Diastolic blood pressure 86 mm[Hg] Jaylyn Nieves MD Work Phone: [facility] 08-04-2022 13:56-0400 Heart rate 107 /min Jaylyn Nieves MD Work Phone: [facility] 08-04-2022 13:56-0400 Respiratory rate 16 /min Jaylyn Nieves MD Work Phone: [facility] 08-04-2022 13:56-0400 SaO2% (BldA) [Mass fraction] 95 % Jaylyn Nieves MD Work Phone: [facility] 08-04-2022 13:56-0400 Systolic blood pressure 109 mm[Hg] Jaylyn Nieves MD Work Phone: [facility] 04-12-2022 08:46-0400 Body height 177.[address] Patricia Mcgowan Work Phone: [facility] Work Phone: 04-12-2022 08:46-0400 Body mass index (BMI) [Ratio] 38.4 kg/m2 Dr. Patricia Mcgowan Work Phone: [facility] Work Phone: 04-12-2022 08:46-0400 Body weight 121.[address] Patricia Mcgowan Work Phone: [facility] Work Phone: 04-12-2022 08:46-0400 Diastolic blood pressure 71 mm[Hg] Dr. Patricia Mcgowan Work Phone: [facility] Work Phone: 04-12-2022 08:46-0400 Heart rate 86 /min Dr. Patricia Mcgowan Work Phone: [facility] Work Phone: 04-12-2022 08:46-0400 Respiratory rate 16 /min Dr. Patricia Mcgowan Work Phone: [facility] Work Phone: 04-12-2022 08:46-0400 SaO2% (BldA) [Mass fraction] 97 % Dr. Patricia Mcgowan Work Phone: [facility] Work Phone: 04-12-2022 08:46-0400 Systolic blood pressure 113 mm[Hg] Dr. Patricia Mcgowan Work Phone: [facility] Work Phone: 04-12-2022 08:46-0400 Body height 177.[address] Patricia Mcgowan Work Phone: [facility] Work Phone: 04-12-2022 08:46-0400 Body mass index (BMI) [Ratio] 38.4 kg/m2 Dr. Patricia Mcgowan Work Phone: [facility] Work Phone: 04-12-2022 08:46-0400 Body weight 121.[address] Patricia Mcgowan Work Phone: [facility] Work Phone: 04-12-2022 08:46-0400 Diastolic blood pressure 71 mm[Hg] Dr. Patricia Mcgowan Work Phone: [facility] Work Phone: 04-12-2022 08:46-0400 Heart rate 86 /min Dr. Patricia Mcgowan Work Phone: [facility] Work Phone: 04-12-2022 08:46-0400 Respiratory rate 16 /min Dr. Patricia Mcgowan Work Phone: [facility] Work Phone: 04-12-2022 08:46-0400 SaO2% (BldA) [Mass fraction] 97 % Dr. Patricia Mcgowan Work Phone: [facility] Work Phone: 04-12-2022 08:46-0400 Systolic blood pressure 113 mm[Hg] Dr. Patricia Mcgowan Work Phone: [facility] Work Phone: 03-29-2022 12:09-0400 SaO2% (BldA) [Mass fraction] 98 % Jaylyn Nieves MD Work Phone: [facility] 03-17-2022 15:50-0400 Diastolic blood pressure 77 mm[Hg] Jaylyn Nieves MD Work Phone: [facility] 03-17-2022 15:50-0400 Systolic blood pressure 120 mm[Hg] Jaylyn Nieves MD Work Phone: [facility] 03-17-2022 14:51-0400 Body height 177.8 cm Jaylyn Nieves MD Work Phone: [facility] 03-17-2022 14:51-0400 Body weight 125.76 kg Jaylyn Nieves MD Work Phone: [facility] 03-17-2022 14:51-0400 Heart rate 101 /min Jaylyn Nieves MD Work Phone: [facility] 03-17-2022 14:51-0400 SaO2% (BldA) [Mass fraction] 98 % Jaylyn Nieves MD Work Phone: [facility] 01-28-2022 02:11-0500 Diastolic blood pressure 89 mm[Hg] Dr. Patricia Mcgowan Work Phone: [facility] Work Phone: 01-28-2022 02:11-0500 Heart rate 96 /min Dr. Patricia Mcgowan Work Phone: [facility] Work Phone: 01-28-2022 02:11-0500 Respiratory rate 18 /min Dr. Patricia Mcgowan Work Phone: [facility] Work Phone: 01-28-2022 02:11-0500 SaO2% (BldA) [Mass fraction] 94 % Dr. Patricia Mcgowan Work Phone: [facility] Work Phone: 01-28-2022 02:11-0500 Systolic blood pressure 158 mm[Hg] Dr. Patricia Mcgowan Work Phone: [facility] Work Phone: 01-28-2022 01:22-0500 Body mass index (BMI) [Ratio] 399.4 kg/m2 Dr. Patricia Mcgowan Work Phone: [facility] Work Phone: 01-28-2022 01:22-0500 Body temperature 97.6 [degF] Dr. Patricia Mcgowan Work Phone: [facility] Work Phone: 01-28-2022 01:22-0500 Body weight [address] Patricia Mcogwan Work Phone: [facility] Work Phone: 01-28-2022 01:11-0500 Diastolic blood pressure 89 mm[Hg] [facility] Work Phone: 01-28-2022 01:11-0500 Heart rate 96 /min [facility] Work Phone: 01-28-2022 01:11-0500 Respiratory rate 18 /min [facility] Work Phone: 01-28-2022 01:11-0500 SaO2% (BldA) [Mass fraction] 94 % [facility] Work Phone: 01-28-2022 01:11-0500 Systolic blood pressure 158 mm[Hg] [facility] Work Phone: 01-28-2022 00:22-0500 Body height 177.8 cm [facility] Work Phone: 01-28-2022 00:22-0500 Body mass index (BMI) [Ratio] 399.4 kg/m2 [facility] Work Phone: 01-28-2022 00:22-0500 Body temperature 97.6 [degF] [facility] Work Phone: 01-28-2022 00:22-0500 Body weight 1263 kg [facility] Work Phone: 10-05-2021 11:00-0500 Diastolic blood pressure 63 mm[Hg] Barb Morton MD Work Phone: [facility] Comment on above: Auto 10-05-2021 11:00-0500 Heart rate 99 /min Barb Morton MD Work Phone: [facility] 10-05-2021 11:00-0500 Systolic blood pressure 91 mm[Hg] Barb Morton MD Work Phone: [facility] Comment on above: Auto 10-05-2021 10:45-0500 Body weight 116.57 kg Barb Morton MD Work Phone: [facility] 05-19-2021 10:00-0400 Diastolic blood pressure 70 mm[Hg] Nii Altman MD Work Phone: [facility] Work Phone: 05-19-2021 10:00-0400 Heart rate 91 [...] index (BMI) [Ratio] 38.88 kg/m2 Raeann Amalia [employer] F[employer]ER - [employer] REPAIRMAN Work Phone: [facility] Work Phone: 05-11-2021 09:45-0400 Body weight 122.92 kg Raeann Amalia [employer] - [employer]PAIR[employer] Work Phone: [facility] Work Phone: Comment on [...] 122.92 kg Nii Altman MD Work Phone: [facility] Work Phone: Encounters Encounter Date Encounter Type Care Provider Facility Start: 05-26-2025 End: 05-26-[address] Ron Cooley MD Work Phone: -[facility] Start: 05-26-2025 End: 05-26-[address] Natasha Gregory MD -[facility] Start: 05-26-2025 End: 05-26-2025 ambulatory Natasha Gregory Facility:[facility] Start: 05-14-2025 End: 05-14-[address] Ron [...] ambulatory Dr. Ron Cooley MD Work Phone: [facility] Work Phone: Start: 05-09-2025 End: 05-09-[address] Vick Santo MD -Radiology [facility] Work Phone: Start: 05-09-2025 End: 05-09-2025 ambulatory Vick Santo Facility:[facility] Start: 05-07-[address] Olivier Santo MD -Speech Therapy Work Phone: Start: 04-13-2025 End: 04-13-2025 Emergency department patient visit Chetan Powell MD Work Phone: [facility] Comment on above: Facial laceration, i nitial encounter (Primary Dx); Fall, initial encounter; Open fracture of nasal bone, initial encounter Start: 04-09-2025 End: 04-09-2025 Emergency department patient visit Dr. Ron Cooley MD Work Phone: -Emergency Department Work Phone: Start: 04-03-2025 End: 04-03-[address] Ron Cooley MD -Laboratory [facility] Start: 04-03-2025 End: 04-03-2025 ambulatory NATASHA GREGORY MD Facility:A Start: 04-03-2025 End: 04-03-2025 ambulatory Ron Cooley Facility:[facility] Start: 04-01-[address] Olivier Santo MD -Speech Therapy Work Phone: Start: 03-26-[address] Olivier Santo MD -Speech Therapy Work Phone: Start: 03-24-2025 End: 03-24-[address] Ron Cooley MD Work Phone: [facility] Work Phone: Start: 03-24-2025 End: 03-24-[address] Jose Perez MD -[facility] Work Phone: Start: 03-24-2025 End: 03-24-[facility] Start: 03-20-2025 End: 03-20-[address] Vick Santo MD -[facility] Work Phone: Start: 03-20-2025 End: 03-20-2025 ambulatory Vick Santo Facility:[facility] Start: 03-03-2025 End: 03-03-[address] Ron Cooley MD Work Phone: [facility] Work Phone: Start: 03-03-2025 End: 03-03-[address] Jose Perez MD -[facility] Start: 03-03-2025 End: 03-03-2025 ambulatory Ron Cooley Facility:[facility] Start: 02-25-[address] Olivier Santo MD -Speech Therapy Work Phone: Start: 02-20-2025 End: 02-20-[address] Ron Cooley MD Work Phone: [facility] Work Phone: Start: 02-20-2025 End: 02-20-[address] Natasha Gregory MD -[facility] Start: 02-20-2025 End: 02-20-2025 ambulatory Natasha Gregory Facility:[facility] Start: 02-14-2025 End: 02-14-2025 Emergency department patient visit Dr. Ron Cooley MD Work Phone: -Emergency Department Work Phone: Start: 02-06-2025 End: 02-06-[address] Vick Santo MD -[facility] Work Phone: Start: 02-06-2025 End: 02-06-2025 ambulatory Vick Santo Facility:[facility] Start: 01-21-2025 End: 01-21-[address] Ron Cooley MD Work Phone: [facility] Work Phone: Start: 01-21-2025 End: 01-21-[address] Ron Cooley MD -Radiology, [place] Work Phone: Start: 01-21-2025 End: 01-21-2025 ambulatory Ron Cooley Facility:[facility] Start: 12-10-2024 End: 12-10-[address] Vick Santo MD -[facility] Work Phone: Start: 12-10-2024 End: 12-10-2024 ambulatory Ron Cooley Facility:[facility] Start: 12-10-2024 End: 12-10-2024 ambulatory Ron Cooley Facility:[facility] Start: 12-05-2024 End: 12-05-2024 Emergency department patient visit Dr. Estuardo Mccormack DO -Emergency Department Work Phone: Start: 12-04-2024 End: 12-04-[address] [facility] Start: 12-04-2024 End: 12-04-2024 ambulatory Ron Cooley Facility:[facility] Start: 12-02-2024 End: 12-02-[address] Jose Perez MD -Radiology, [place] Work Phone: Start: 12-02-2024 End: 12-02-2024 ambulatory Ron Cooley Facility:[facility] Start: 10-28-2024 End: 10-28-[address] Natasha Gregory MD -Laboratory, [place] Work Phone: Start: 10-28-2024 End: 10-28-2024 ambulatory Natasha Gregory Facility:[facility] Start: 10-12-2024 End: 10-12-2024 Emergency department patient visit Dr. Osman Farooq MD -Emergency Department Work Phone: Start: 09-27-2024 End: 09-27-2024 ambulatory Ron Cooley Facility:[facility] Start: 09-20-2024 End: 09-20-2024 ambulatory [facility] Facility:[facility] Start: 09-02-2024 End: 09-02-2024 ambulatory Ron Cooley Facility:[facility] Start: 09-02-2024 End: 09-02-2024 [facility] Start: 08-07-2024 End: 08-07-2024 ambulatory Ron Cooley Facility:[facility] Start: 06-27-2024 End: 06-27-2024 ambulatory Ron Cooley Facility:[facility] Start: 06-27-2024 End: 06-27-2024 ambulatory Natasha Gregory Facility:[facility] Start: 06-10-2024 End: 06-10-2024 ambulatory Whitley Traning Facility:[facility] Start: 03-25-2024 End: 03-25-[address] Ron Cooley Work Phone: [facility] Work Phone: Start: 03-25-2024 End: 03-25-[address] [facility] Work Phone: Start: 03-25-2024 End: 03-25-[address] Ron Cooley Work Phone: [facility] Work Phone: Start: 02-27-2024 End: 02-27-[address] Ron Cooley Work Phone: [facility] Work Phone: Start: 02-27-2024 End: 02-27-[address] Ron Cooley Work Phone: [facility] Start: 01-30-2024 End: 01-30-[address] Ron Cooley Work Phone: [facility] Work Phone: Start: 01-30-2024 End: 01-30-[address] Ron Cooley Work Phone: [facility] Work Phone: Start: 12-26-2023 End: 12-26-[address] Ron Cooley Work Phone: [facility] Work Phone: Start: 12-26-2023 End: 12-26-[address] Ron Cooley Work Phone: [facility] Work Phone: Start: 12-15-2023 End: 12-15-[address] Ron Cooley Work Phone: [facility] Work Phone: Start: 12-15-2023 End: 12-15-[address] Ron Cooley Work Phone: [facility] Work Phone: Start: 11-23-2023 End: 11-23-[address] Ron Cooley Work Phone: [facility] Start: 11-23-2023 End: 11-23-[address] Ron Cooley Work Phone: [facility] Work Phone: Start: 11-22-2023 End: 11-22-[address] Ron Cooley Work Phone: [facility] Work Phone: Start: 11-22-2023 End: 11-22-[address] Ron Cooley Work Phone: [facility] Work Phone: Start: 10-31-2023 End: 10-31-[address] Ron Cooley Work Phone: [facility] Work Phone: Start: 10-31-2023 End: 10-31-[address] Ron Cooley Work Phone: [facility] Start: 09-07-2023 End: 09-07-[address] Ron Cooley Work Phone: [facility] Work Phone: Start: 08-07-2023 End: 08-07-[address] Ron Cooley Work Phone: [facility] Work Phone: Start: 08-03-2023 End: 08-03-[address] Ron Cooley Work Phone: [facility] Work Phone: Start: 06-21-2023 Non-patient / Non-visit Dr. Rimma Cooley Work Phone: [facility] Start: 06-21-2023 End: 06-21-[address] Ron Cooley Work Phone: [facility] Work Phone: Start: 06-21-2023 End: 06-21-[address] [facility] Work [facility]: Start: 05-18-2023 End: 05-18-[address] Ron Cooley Work Phone: [facility] Work Phone: Start: 05-18-2023 End: 05-18-[address] Ron Cooley Work Phone: [facility] Work Phone: Start: 05-09-2023 End: 05-09-[address] Ron Cooley Work Phone: [facility] Work Phone: Start: 05-09-2023 End: 05-09-[address] Ron Coloey Work Phone: [facility] Start: 05-02-2023 End: 05-02-[address] Ron Cooley Work Phone: [facility] Work Phone: Start: 05-02-2023 End: 05-02-[address] Ron Cooley Work Phone: [facility]-Physical Therapy Work Phone: Start: 05-02-[address] Ron Cooley Work Phone: [facility]-Physical Therapy Start: 05-01-2023 End: 05-01-[address] Ron Cooley Work Phone: [facility] Work Phone: Start: 05-01-2023 End: 05-01-[address] Ron Cooley Work Phone: [facility] Start: 04-12-2023 End: 04-12-[address] Ron Cooley Work Phone: [facility] Start: 04-11-2023 End: 04-11-[address] Ron Cooley Work Phone: [facility] Start: 02-21-2023 End: 02-21-2023 ambulatory [facility] Work Phone: Start: 02-21-2023 End: 02-21-2023 Patient encounter procedure [facility] Start: 02-14-2023 Telephone encounter Jaylyn peck MD Work Phone: Neurology Comment on above: Patient Update (Incr eased falls, aggression) Start: 02-11-2023 End: 02-11-2023 Emergency department patient visit [facility]-Emergency Department Start: 01-10-2023 Telephone encounter Jaylyn peck MD Work Phone: Neurology Comment on above: Patient Update Start: 01-04-2023 End: 01-04-2023 ambulatory [facility] Work Phone: Start: 01-04-2023 End: 01-04-2023 Patient encounter procedure [facility] Start: 12-12-2022 End: 12-12-2022 ambulatory Leni Ruiz APRN.CAR REPAIRMAN Work Phone: Neurology Comment on above: TAMULOSIN Start: 12-12-2022 End: 12-12-2022 Office outpatient new 20 minutes Leni Ruiz APRN.CAR REPAIRMAN Work Phone: Neurology Comment on above: Parkinsonism, unspec ified Parkinsonism type (HCC) (Primary Dx); Orthostatic hypotension; Anxiety Start: 10-10-2022 Telephone encounter Jaylyn peck MD Work Phone: Neurology Comment on above: Patient Update (Incr eased shaking in AM ) Start: 10-04-2022 End: 10-04-2022 ambulatory KORI BEBB Facility:[facility] Start: 10-04-2022 End: 10-04-2022 ambulatory [facility] PT, DPT Work Phone: [facility] Outpatient Physical Therapy Comment on above: Parkinsonism, unspec ified Parkinsonism type (HCC) (Primary Dx); Gait instability; Leg weakness, bilateral; Imbalance Start: 09-16-2022 End: 09-16-2022 ambulatory [facility] Work Phone: Start: 09-16-2022 End: 09-16-2022 Patient encounter procedure [facility]atory, [facility] Start: 09-15-2022 End: 09-15-2022 ambulatory Jaylyn Nieves MD Work Phone: Neurology Comment on above: CYMBALTA Start: 09-12-2022 Telephone encounter Jaylyn peck MD Work Phone: [facility] Comment on above: Other (PD Symptoms W orsening) Start: 09-02-2022 End: 09-02-2022 [facility] Aleida Ramirez MD Work Phone: [facility] Comment on above: MELISSA (generalized anx iety disorder) (Primary Dx); Depression, unspecified depression type; Parkinsonism, unspecified Parkinsonism type (HCC) Start: 08-25-2022 End: 08-25-2022 ambulatory [facility] Facility:[facility] Start: 08-25-2022 End: 08-25-2022 ambulatory Kori Ryder PT, DPT Work Phone: [facility] Outpatient Physical Therapy Comment on above: Parkinsonism, unspec ified Parkinsonism type (HCC) (Primary Dx); Gait instability; Leg weakness, bilateral; Imbalance Start: 08-11-2022 End: 08-11-2022 ambulatory [facility] Facility:[facility] Start: 08-08-2022 ambulatory Jaylyn jennings MD Work Phone: Neurology Comment on above: Dr. Suzie Nieves at 07/21 2:20 PM Start: 08-04-2022 End: 08-04-2022 ambulatory JAYLYN NIEVES Facility:[facility] Start: 08-04-2022 End: 08-04-2022 Patient encounter procedure Jaylyn Nieves MD Work Phone: Neurology Comment on above: Parkinsonism, unspec ified Parkinsonism type (HCC) (Primary Dx); Depression, unspecified depression type; Anxiety; Orthostatic lightheadedness; Dysphagia, unspecified type Start: 08-01-2022 End: 08-01-[address] Patricia Mcgowan Work Phone: [facility] Work Phone: Start: 08-01-2022 End: 08-01-[address] [facility] Start: 07-21-2022 Telephone encounter Jaylyn peck MD Work Phone: Neurology Comment on above: Appointment (Earlier appointment request d/t worsening symptoms ) Start: 06-21-2022 End: 06-21-[address] Patricia Mcgowan Work Phone: [facility] Start: 06-20-2022 End: 06-20-[address] Patricia Mcgowan Work Phone: [facility] Start: 05-18-2022 Refill Jaylyn jennings MD Work Phone: [facility] Comment on above: Refill Request Start: 05-16-2022 Non-patient / Non-visit Dr. Danya Mcgowan Work Phone: [facility] Start: 05-16-2022 End: 05-16-[address] Patricia Mcgowan Work Phone: [facility]-Cardiovascul ar Services Start: 04-25-2022 End: 04-25-[address] Patricia Mcgowan Work Phone: [facility] Start: 04-12-2022 End: 04-12-[address] Patricia Mcgowan Work Phone: [facility] Start: 04-07-2022 End: 04-07-2022 Patient encounter procedure [facility] Start: 03-29-2022 End: 03-29-2022 ambulatory Maine Medel PT, DPT Work Phone: [facility] Outpatient Physical Therapy Comment on above: Parkinson disease (H CC) (Primary Dx) Start: 03-29-2022 End: 03-29-2022 Patient encounter procedure Sakina Ro CCC-SEAT MENDER Work Phone: [facility] Outpatient Speech Therapy Comment on above: Parkinsonism, unspec ified Parkinsonism type (HCC) (Primary Dx); Dysphagia, oropharyngeal phase; Dysarthria Gait instability (Pr imary Dx); Parkinsonism, unspecified Parkinsonism type (HCC); Dysphasia; Oropharyngeal dysphagia; Decreased activities of daily living (ADL) Start: 03-23-2022 Telephone encounter Jaylyn peck MD Work Phone: Neurology Comment on above: Upcoming Appointment (Pre-rooming phone call) Start: 03-17-2022 End: 03-17-2022 ambulatory PATRICIA TRISTEN MCGOWAN Facility:[facility] Start: 03-17-2022 End: 03-17-2022 Patient encounter procedure Jaylyn Nieves MD Work Phone: Neurology Comment on above: Parkinsonism, unspec ified Parkinsonism type (HCC) (Primary Dx); Essential tremor; Dysphagia, unspecified type; Gait instability Start: 03-10-2022 End: 03-10-2022 Patient encounter procedure [facility] Start: 02-10-2022 Documentation procedure Jaspreet Ríos [facility], Neuroscience Start: 01-28-2022 End: 01-28-2022 Emergency department patient visit [facility]-Emergency Department Start: 12-31-2021 End: 12-31-2021 Patient encounter procedure [facility] Start: 12-21-2021 End: 12-21-2021 ambulatory BARB MORTON [facility] Start: 12-21-2021 End: 12-21-2021 Office outpatient visit 15 minutes Barb Morton MD Work Phone: [facility] Neuroscience Comment on above: Parkinson's disease (HCC) (Primary Dx) Start: 12-15-2021 End: 12-16-2021 [facility] Start: 12-15-2021 End: 12-16-2021 ambulatory [facility] Start: 12-05-2021 ambulatory [facility] Start: 11-18-[address] [facility] Start: 11-15-2021 Patient encounter procedure [facility]Xiomara [facility] Start: 11-09-2021 Refill Jaspreet Qureshi MA [facility] Neuroscience Start: 11-05-2021 Documentation procedure Jim Bradford RN [facility] Start: 11-03-2021 Documentation procedure Jaspreet Ríos [facility] Physician [facility], Neuroscience Start: 11-01-2021 End: 11-02-2021 ambulatory [facility] Start: 10-28-2021 End: 11-01-2021 ambulatory Barb Morton MD Work Phone: [facility] Office Building Rehab Comment on above: Tremor; Impaired mobility and activities of daily living; Impairment of balance Start: 10-05-2021 End: 10-05-2021 ambulatory PATRICIA TRISTEN MCGOWAN [facility] Start: 10-05-2021 End: 10-05-2021 Office outpatient visit 25 minutes Barb Morton MD Work Phone: [facility] Physician [facility], Neuroscience Comment on above: Tremor (Primary Dx) Start: 09-27-2021 Transcribe Orders Patricia Mcgowan MD Work Phone: [facility] Physician [facility], Neuroscience Comment on above: Tremor, essential (P rimary Dx) Start: 05-19-2021 End: 05-19-2021 Subsequent hospital visit by physician Nii Altman MD Work Phone: [facility] General Surgery Comment on above: Arrived Start: 05-11-2021 End: 05-11-2021 Patient encounter status Raeann Holland [employer]ER - [employer] REPAIRMAN Work Phone: [facility] Start: 05-11-2021 End: 05-11-2021 Subsequent hospital visit by physician Raeann Holland G[employer] F[employer]ER - [employer] REPAIRMAN Work Phone: [facility] Comment on above: [...] of breath Start: 04-12-2021 Patient encounter status [facility] Work Phone: Start: 08-14-2006 End: 08-14-2006 Patient encounter procedure Wyatt Noble Work Phone: [facility] Start: 08-14-2006 Results Only Wyatt Valleo x Work Phone: [facility] Start: 02-03-2006 End: 02-03-2006 Patient encounter procedure Wyatt Noble Work Phone: [facility] Start: 02-03-2006 Results Only Wyatt Valleo x Work Phone: [facility] [facility] Procedures Date Procedure Procedure Detail Performing Clinician Start: 05-26-2025 Folic acid measurement, RBC Dr. Ron Cooley MD Work Phone: Comment on above: Performed at: [address] [id number] Director: Vj Garcia PhD, Phone: [phone] Start: 05-09-[address] Ron valle MD [...] ECHOCARDIOGRAM PHARMACOLOGICAL STRESS TEST Raeann Case Holland [employer] Work Phone: Start: 05-05-2021 Antibody screen Nii Charlton MD Work Phone: Start: 05-05-2021 Blood count complete automated Raeann Holland [employer] Work Phone: Start: 05-05-2021 Blood typing serologic abo Raeann Case Holland GINGER F[employer]ER [employer] Work Phone: Start: 05-05-2021 Ecg routine ecg w/le ast 12 lds w/i&r Raeann Case [place] [employer] - [employer] Work Phone: Start: 08-14-2006 CONVERTED SURGICAL PATHOLOGY Wyatt Noble Work Phone: Start: 02-03-2006 CONVERTED SURGICAL PATHOLOGY Wyatt Teixeira Donna Work Phone: Plan of Treatment Date Care Activity Detail Author Start: 12-05-2034 DTaP/Tdap/Td Vaccines (4 - Td or Tdap) DTaP/Tdap/Td Vaccines (4 - Td or Tdap) [facility] Start: 01-25-2031 Tetanus vaccination Tetanus: Every 10yrs [facility] Start: 05-11-2025 [facility] Start: 04-09-2025 Simple repair scalp/neck/ax/genit/trun k 2.5cm/< RPR S/N/AX/GEN/TRNK 2.5CM/< [facility] Start: 04-09-2025 [facility] Start: 03-24-2025 CT Chest WO contrast [facility] Start: 03-24-2025 CT of chest without contrast Chest without Contrast [facility] Start: 02-14-2025 [facility] Start: 01-04-2025 Patient referral [facility] Work Phone: Start: 12-11-2024 Patient referral [facility] Work Phone: Start: 12-05-2024 [facility] Start: 12-05-2024 Simple repair f/e/e/n/l/m 2.6cm-5.0 cm RPR F/E/E/N/L/M 2.6-5.0 CM [facility] Start: 11-11-2024 COVID-19 Vaccine () COVID-19 Vaccine () [facility] Start: 10-12-2024 Incentive spirometry [facility] Start: 10-12-2024 End: 10-12-2024 [facility] Start: 04-02-2024 Patient referral [facility] Work Phone: Start: 03-25-2024 Acetylcholine receptor blocking Ab [Presence] in Serum [facility] Start: 03-25-2024 Acetylcholine receptor modulating antibody measurement [facility] Start: 11-23-2023 Serum immunofixation [facility] Start: 11-23-2023 Urine immunofixation [facility] Start: 05-09-2023 [place] and lambda light chains [facility] Start: 05-09-2023 Thiamine measurement [facility] Start: 03-11-2023 Adult depression screening assessment DEPRESSION SCREENING [facility] Start: 11-20-2022 ADVANCE DIRECTIVE DISCUSSION ADVANCE DIRECTIVE DISCUSSION [facility] Start: 11-20-2022 DEPRESSION ASSESSMENT DEPRESSION ASSESSMENT [facility] Start: 07-21-2022 Influenza vaccination INFLUENZA (#1) [facility] Start: 05-05-2022 Creatinine measurement Creatinine monitoring [employer] Phone: Start: 05-05-2022 Diabetes: Estimated Glomerular Filtration Rate for Kidney Health Diabetes: Estimated Glomerular Filtration Rate for Kidney Health [facility] Start: 05-05-2022 Potassium monitoring Potassium monitoring [facility] Work Phone: Start: 12-21-2021 End: 12-21-2021 Telemedicine consultation with patient 12/21/2021 Telemedicine Neurology Barb Morton MD [address] [place] [address] [facility], Neuroscience Start: 12-15-2021 End: 12-15-2021 Patient encounter procedure 12/15/2021 Appointment Radiology Barb Morton MD [address] [facility] [address] [place] [address] [facility] Start: 11-20-2021 ADVANCE DIRECTIVE DISCUSSION ADVANCE DIRECTIVE DISCUSSION [facility] Start: 11-20-2021 DEPRESSION ASSESSMENT DEPRESSION ASSESSMENT [facility] Start: 11-01-2021 End: 11-01-2021 Patient encounter procedure 11/01/2021 Appointment Radiology Barb Morton MD [address] [facility] [address] [place] [address] [facility] [address] Start: 06-03-2021 End: 06-03-2021 Patient encounter procedure 06/03/2021 Office Visit Neurosurgery Nii Altman MD [address] [place] [address] [phone] [facility] Start: 05-19-2021 End: 05-19-2021 Patient encounter procedure 05/19/2021 Appointment General Surgery Nii Altman MD [address] [place] [address] [phone] [facility] General Surgery Start: 05-05-2021 End: 07-04-2021 ECHO Pharmacological Stress Test ECHO Pharmacological Stress Test Echocardiography Routine Pre-op testing Abnormal EKG Shortness of breath Expected: 05/05/2021 (Approximate), Expires: 07/04/2021 [employer] Work Phone: Comment on above: Expected: 05/05/2021 (Approximate), Expi res: 07/04/2021 Start: 07-21-2020 Influenza vaccination INFLUENZA (#1) [facility] Start: 05-12-2019 Annual Wellness Visit (AWV) Annual Wellness Visit (AWV) [facility] Work Phone: Start: 2009 ADVANCE DIRECTIVE DISCUSSION ADVANCE DIRECTIVE DISCUSSION [facility] Start: 2009 Fall risk assessment Falls Risk Assessment [facility] Start: 2009 Pneumococcal 65+ years Vaccine (1 of 1 - PPSV23) Pneumococcal 65+ years Vaccine (1 of 1 - PPSV23) [facility] Work Phone: Start: 2009 PNEUMOCOCCAL: 65+ (1 - PCV) PNEUMOCOCCAL: 65+ (1 - PCV) [facility] Start: 2009 PNEUMOVAX AGE 65 AND OVER WITH 5YR LOOKBACK (#1) PNEUMOVAX AGE 65 AND OVER WITH 5YR LOOKBACK (#1) [facility] Start: 1994 Shingles Vaccine (1 of 2) Shingles Vaccine (1 of 2) [employer] Work Phone: Start: 1994 SHINGRIX VACCINE (1 of 2) SHINGRIX VACCINE (1 of 2) [facility] Start: 1994 Tuberculosis screening COLORECTAL CANCER SCREENING,SEE MODIFIER [facility] Start: 1989 DIABETES SCREEN DIABETES SCREEN [facility] Start: 1979 LIPID SCREEN LIPID SCREEN [facility] Start: 1963 DTaP/Tdap/Td vaccine (1 - Tdap) DTaP/Tdap/Td vaccine (1 - Tdap) [facility] Work Phone: Start: 1963 Urine microalbumin profile DTAP,TDAP,TD (1 - Tdap) [facility] Start: 1962 Diabetes: Urine Albumin-Creatinine Ratio for Kidney Health Diabetes: Urine Albumin-Creatinine Ratio for Kidney Health [facility] Start: 1962 HEPATITIS C SCREENING HEPATITIS C SCREENING [facility] Start: 1962 Hepatitis C screening Hepatitis C Screening [facility] Start: 1956 COVID-19 Vaccine (1) COVID-19 Vaccine (1) [facility] Work Phone: Start: 1956 Depression screening using PHQ-9 (Patient Health Questionnaire 9) score [facility] Start: 1954 Diabetic foot examination Foot Exam [facility] Start: 1954 Lipid panel Lipid screen [facility] Work Phone: Start: 1954 Microalbumin measurement, urine, quantitative Urine Microalbumin [facility] Start: 1954 Ophthalmic examination and evaluation Ophthalmology Exam [facility] Start: 1947 History and physical examination, annual for health maintenance Wellness Visit [facility] Start: 1944 Hemoglobin A1c measurement A1C [facility] Start: 1944 Hepatitis C screening Hepatitis C screen [facility] Work Phone: Start: 1944 Medicare Annual Wellness (AWV) Medicare Annual Wellness (AWV) [facility] Albumin [Moles/volum e] in Serum or Plasma [facility] Albumin/Globulin ratio [facility] Blood glucose - POCT [employer] Work Phone: Comment on above: As Needed until discontinued starting Cobalamin (Vitamin B 12) [Mass/volume] in Serum or Plasma [facility] End: 05-19-2021 Creatinine [Mass/volume] in Serum or Plasma Creatinine, serum Lab STAT One Time for 1 Occurrences starting 05/19/2021 until 05/19/2021 [employer] Work Phone: Comment on above: One Time for 1 Occurrences starting 04/22 until 05/19/2021 End: 10-05-2022 CT of head without contrast CT Head Or Brain Without Contrast Imaging Routine Tremor 1 Occurrences starting 10/05/2021 until 10/05/2022 [facility] Comment on above: 1 Occurrences starting 10/05/2021 until 10/05/2022 EKG 12 Lead [facility] Work Phone: Electrophoresis: [id number] [facility] Electrophoresis: aamir ma globulin [facility] Folic acid measureme nt, RBC [facility] Globulin measurement [facility] IgA [Mass/volume] in Serum or Plasma [facility] IgG [Mass/volume] in Serum or Plasma [facility] IgM [Mass/volume] in Serum or Plasma [facility] End: 05-19-2021 Intermittent pulse oximetry Pulse Oximetry Spot Check Respiratory Care Routine One Time for 1 Occurrences starting 05/19/2021 until 05/19/2021 [employer] Work Phone: Comment on above: One Time for 1 Occurrences starting 04/22 until 05/19/2021 [place]/lambda light c winsome ratio [facility] Lambda light chains. free [Mass/volume] in Serum or Plasma [facility] MR Brain WO and W contrast IV [facility] MR Brain WO contrast [facility] MR Cervical spine [facility] MR Lumbar spine [facility] End: 05-11-2021 Nasal Cannula Oxygen Nasal Cannula Oxygen Respiratory Care Routine As Needed until discontinued starting 05/11/2021 [employer] Work Phone: Comment on above: As Needed until discontinued starting End: 10-05-2022 NM Brain Datscan SPECT CT Single Area Single Day NM Brain Datscan SPECT CT Single Area Single Day Imaging Routine Tremor 1 Occurrences starting 10/05/2021 until 10/05/2022 [facility] Work Phone: Comment on above: 1 Occurrences starting 10/05/2021 until 10/05/2022 Oxygen therapy [[place] Data Set] Initiate Oxygen Therapy Protocol Respiratory Care Routine Daily until discontinued starting 05/19/2021 [employer] Work Phone: Comment on above: Daily until discontinued starting 2020 Patient Education [facility] Work Phone: Patient referral [facility] Work Phone: End: 05-19-2021 Potassium w/ Reflex to Magnesium Potassium w/ Reflex to Magnesium Lab Routine One Time for 1 Occurrences starting 05/19/2021 until 05/19/2021 [employer] Work Phone: Comment on above: One Time for 1 Occurrences starting 04/22 until 05/19/2021 End: 05-19-2021 , urine POCT , urine POCT Point of Care Testing Routine One Time for 1 Occurrences starting 05/19/2021 until 05/19/2021 [facility] Work Phone: Comment on above: One Time for 1 Occurrences starting 04/22 until 05/19/2021 Protein electrophore sis panel - Serum or Plasma [facility] End: 05-19-2021 Protime-INR Protime-INR Lab STAT One Time for 1 Occurrences starting 05/19/2021 until 05/19/2021 [facility] Work Phone: Comment on above: One Time for 1 Occurrences starting 04/22 until 05/19/2021 PT PLAN OF CARE CERTIFICATION PT PLAN OF CARE CERTIFICATION Procedures Routine Parkinson disease (HCC) Ordered: 03/29/2022 [facility] Work Phone: Comment on above: Ordered: 03/29/2022 Serum immunofixation [facility] SPEECH PLAN OF CARE CERTIFICATION SPEECH PLAN OF CARE CERTIFICATION Procedures Routine Parkinsonism, unspecified Parkinsonism type ([facility]) Dysphagia, oropharyngeal phase Dysarthria Ordered: 03/29/2022 [facility] Work Phone: Comment on above: Ordered: 03/29/2022 Spirometry panel Incentive mariann metry Respiratory Care Routine Q1H PRN until discontinued starting 05/19/2021 [facility] Work Phone: Comment on above: Q1H PRN until discontinued starting 04/22 Urine immunofixation [facility] Urine kappa light ch ain measurement [facility] Immunizations Immunization Date Immunization Notes Care Provider Fa heidi 12-05-2024 tetanus toxoid, redu aman diphtheria toxoid, and acellular pertussis vaccine, adsorbed Dr. Ron Cooley MD Work Phone: [facility] Payers Date Payer Category Payer Private Health Insurance [facility] Mem crow [id number] 2025 Unknown [id number] 2024 Self-pay [id number] 2021 [place] [id number] 2021-Present [phone] [address] [place] [address] [id number] .7.3.114795.315 2021 Unknown [id number] 2021 Unknown [id number]. 1.13.385.2 .7.3.904860.315 2017 [employer] ( and others) [id number] 1.2.840.930308.1.13.239.2 .7.3.113078.315 2009 Medicare [id number] 1.2.840.536792.1.13.385.2 .7.3.530960.315 2009 Medicare 1.2.840.052987. 1.13.385.2 .7.3.214650.315 2009 Medicare [id number] 1.2.840.006527.1.13.239.2 .7.3.920698.315 2002 Self-pay [id number] 1.2.840.223676.1.13.159.2 .7.3.377340.315 1944 Unknown [id number] 2.16.840.1.904453.3.579.2 .900 1944 Unknown [id number] 2.16.840.1.603458.3.579.2 .900 1944 Unknown [id number] 2.16.840.1.220986.3.579.2 .900 1944 Unknown [id number] 2.16.840.1.606349.3.579.2 .900 1944 Unknown [id number] 2.16.840.1.952699.3.579.2 .900 1944 Unknown [id number] 2.16.840.1.536231.3.579.2 .900 1944 Unknown [id number] 2.840.1.950182.3.579.2 .900 1944 Unknown [id number] 2.16.840.1.941150.3.579.2 .900 1944 Unknown [id number] 2.16.840.1.504128.3.579.2 .900 1944 Unknown [id number] 2.16.840.1.794997.3.579.2 .627 1944 Unknown [id number] 2.16.840.1.294989.3.579.2 .627 Unknown [id number] 2.16.840.1.046262.3.579.2 .462 Unknown [id number] 2.16.840.1.836968.3.579.2 .462 Unknown [id number] 2.16.840.1.667571.3.579.2 .462 Unknown [id number] 2.16.840.1.433424.3.579.2 .462 Unknown [id number] 2.16.840.1.126627.3.579.2 .462 Unknown [id number] 2.16840.1.842010.3.579.2 .462 Unknown [id number] 2.16840.1.420381.3.579.2 .462 Unknown [id number] 2.16.840.1.359144.3.579.2 .462 Unknown [id number] 2.840.1.448540.3.579.2 .462 Unknown [id number] 2.840.1.069393.3.579.2 .462 Unknown [id number] 2.840.1.707685.3.579.2 .462 Unknown [id number] 2.840.1.595062.3.579.2 .462 Unknown [id number] 2.840.1.248819.3.579.2 .462 Unknown [id number] 2.840.1.036048.3.579.2 .462 Unknown [id number] 2.840.1.303970.3.579.2 .462 Unknown [id number] 2.840.1.475485.3.579.2 .462 Unknown [id number] 2.840.1.007034.3.579.2 .462 Unknown [id number] 2.840.1.922814.3.579.2 .462 Unknown [id number] 2.840.1.338503.3.579.2 .462 Unknown [id number] 2.840.1.946308.3.579.2 .462 Unknown [id number] 2.840.1.386311.3.579.2 .462 Unknown [id number] 2.840.1.546307.3.579.2 .462 Unknown [id number] 2.840.1.884880.3.579.2 .462 Unknown [id number] 2.16.840.1.035161.3.579.2 .462 Unknown [id number] 2.16.840.1.639270.3.579.2 .462 Unknown [id number] 2.16.840.1.636178.3.579.2 .462 Unknown [id number] 2.16.840.1.871801.3.579.2 .462 Unknown [id number] 2.16.840.1.097463.3.579.2 .462 Social History Date Type Detail Facility Tobacco smoking stat [facility] Unknown if ever smoked [facility] Start: 1945 Sex Assigned At Not on file [facility] Start: 05-05-2021 End: 05-11-2025 Tobacco smoking status MSIS Former smoker [facility] Work Phone: Start: 11-20-1947 End: 11-20-1998 History of tobacco use Current smoker [facility] Start: [birth year]-20-1948 End: 11-20-1998 History of tobacco use Cigarette Smoker [facility] Start: 05-05-2021 End: 11-08-2022 Cigarettes smoked current (pack per day) - Reported [facility] Work Phone: Start: 05-05-2021 End: 08-04-2022 Tobacco use and exposure Never used [facility] Start: 05-05-2021 End: 11-08-2022 Alcohol intake Current non-drinker of alcohol (finding) [facility] Work Phone: Start: 11-15-2021 End: 09-02-2022 Exposure to SARS-CoV-2 (event) Not sure [facility] Start: 01-28-2022 End: 08-07-2023 Tobacco smoking status MSIS Tobacco smoking consumption unknown [facility] Start: 10-05-2021 End: 12-12-2022 Alcohol intake Lifetime non-drinker (finding) [facility] Start: 1945 Sex Assigned At Male [facility] Start: 08-25-2021 History SDOH Alcohol Frequency 1 [facility] Start: 07-25-2022 End: 08-04-2022 Exposure to SARS-CoV-2 (event) Yes [facility] Start: 06-20-2022 End: 02-03-2025 Sex Male (finding) [facility] Start: 11-08-2022 End: 04-13-2025 Alcohol Use Disorder Identification Test - Consumption [AUDIT-C] [facility] How often to you hav e a drink containing alcohol? Never [facility] How many standard dr inks containing alcohol do you have on a typical day? Patient does not drink [facility] Medical Equipment Procedure Code Equipment Code Equipment Origin al Text Equipment Identifier Dates [id number] Start: 01-15-2018 SURE COMFORT PEN NEEDLES 31G X 8 MM MISC [id number] Start: 12-28-2017 blood sugar diagnostic (FreeStyle Lite Strips) strips [id number] Start: 01-15-2018 pen needle, diab etic 31 gauge x 5/16 Ndle [id number] Start: 12-28-2017 Functional Status Date Assessment Result Facility 04-13-2025 Total score [AUDIT-C] 0 04/13/20 8:48 PM EDT Cielo Valverde RN [facility] Mental Status Date Assessment Result Facility 05-11-2025 Cognitive function Level Of Cons ciousness Awake;Alert;Appropriate;Follow s Commands [facility] Work Phone: 10-12-2024 Cognitive function Awake;Alert;A ppropriate;Follow s Commands [facility] Work Phone: 01-28-2022 Cognitive function Level Of Cons ciousness Awake;Alert;Appropriate;Follow s Commands [facility] Work Phone: Clinical Notes 05-05-2021 to 05-11-2025 Note Date & Type Note Facility 05-11-2025 Discharge summary [facility] 05-11-2025 Discharge summary Note Date/Time May 11, 2025 6:49pm [facility] Medical Records Department [address] [place] [address] Emergency Department Summary 05/11/25 MR#: [id number] Acct: [id number] Name: KEVIN GRIFFITH Rep #:[id number] : 1945 79 From: aDno Minor MD PCP: Dr. Ron Cooley MD [...] Care Provider] - As Needed Print Language: Guinean Disposition Disposition: Home, Self Care What to do if you have Problems For any increased pain, shortness of breath, bleeding, nausea or vomiting, chestpain, or any unexpected problems, contact your Primary Care Provider. Call [facility] ([phone]) or report to the closest Emergency Room. Call 911 if necessary. 05/11/251848 <Electronically signed by Dano Minor MD> Cosigner Signature (if applicable): CC: Dr. Ron Cooley MD ~ Signed [facility] Work Phone: 1(269) 890-896006-20-2025 Procedure note [facility] Speech Pathology [address] [place] [address] Modified Barium Swallow Study MR#: [id number] Acct: [id number] Name: KEVIN GRIFFITH Rep #:[id number] : 1945 79 From: Heather Braun, [facility]-SEAT MENDER Modified Barium Swallow Patient Information Study Date: 05/09/25 Study Time: 13:05 Direct Billable Minutes: 120 Total Minutes procedure & reportin Diagnosis: Dysphagia R13.10 Referring Physician: Vick Santo Reason for Referral: The patient presents for repeat MBSS recommended by his OP SEAT MENDER. Patient and wifereport coughing w/ food and [...] cup: Result: 2= enter airway/above vocal folds/ejected [place] Thick Liquid via large single sip: cup: [...] sizes taken during MBSS were large/sequential despite SEAT MENDER cues for small sip. Decreased bolus size is recommended to decrease aspiration risk. SEAT MENDER provided information re: bolus control cup. The [...] Supervision: Assist as needed ( informed the SEAT MENDER that supervision at each meal is not possible,SEAT MENDER recommends supervision as much as able to [...] further education on strategies & risks. Comment: SEAT MENDER provided extensive education w/ pt and in results and recommendations of MBSS via review of some images, verbal discussion, and handouts (Easy to Chewdiet texture information/testing, MBSS Recommendations, and [place]ale Bolus Control Cup information). Education well received. Pt would benefit from continued training in safe swallowing precautions. Status Active ST Patient: Active Contact Information [facility] Speech Therapy:: Heather Titus M.A. CCC-SEAT MENDER? Speech-Language Pathologist?? [facility] [address] [place] [address]? [email or web address]?? [phone] 05/09/25 [address] CCC-SEAT MENDER> Date/Time Heather Titus M.A. CCC-SEAT MENDER Co-Signature Required for all Medicare patients Date/Time Co-Signature CC: ~ [facility]05-25-2025 Hospital Discharge instructions* Discharge Instructions* J Erna Powell MD - 04/13/2025 9:41 PM EDT You had 10 stitches placed. Please present to an urgent care, your primary care physician, or back to the emergency department in 5-7 days to have your stitches removed. * Attachments The following attachments cannot be sent through Care Everywhere. * Nose Fracture ([place]inean) documented in this [facility]05-25-2025 Emergency department Note* Chetan Powell MD [...] CT [facility]illofacial [facility], for [facility] CT demonstrating bilateral nasal bone fractures. The [...] initial encounter Medications lidocaine-EPINEPHrine (Xylocaine W/EPI) 1 %-1:508930 injection 10 mL (has no administration in [...] Consent obtained: Verbal Consent given by: Patient [place] protocol: Imaging studies available: yes Patient identity [...] Discharge 04/13/2025 09:39:45 PM PATIENT REFERRED TO: [facility] [address] [address] Schedule an appointment as soon [...] scheduled for the surgery on 04/17/2018 at [facility] COPD (chronic obstructive pulmonary disease) ([facility]) Diabetes mellitus type 2, controlled (CMS/HCC) ([facility]) [place] (hard of hearing) HAS HEARING AID BOTH EARS , BUT DID NOT WEAR THEM Hyperlipidemia Hypertension MELISSA on CPAP [2] Past Surgical History: Procedure Laterality Date COLONOSCOPY COLONOSCOPY ELBOW SURGERY Left 1990 Lateral epicondylitis surgery EYE SURGERY bilat cataracts and implants JOINT REPLACEMENT Bilateral TKA L 2005, TKA R 2011 SKIN BIOPSY SPINAL FUSION 2000 L2,3,4; AT [facility] WRIST ARTHROSCOPY (HISTORICAL) Left 04/17/2018 [3] Family [...] forehead above left eye [id number] Emergency department Triage note* Cielo Valverde RN - 04/13/2025 8:38 PM EDT Pt presents to ED via EMS from restaurant for c/o left frontal head lac after losing footing and falling onto face on the ground. Pt has hx of parkinson's. Abrasion noted to forehead, small lac notedto bridge of nose as well as a large lac to forehead above left eye [id number] Physician Emergency department Note* Chetan Powell MD [...] CT maxillofacial I reviewed external records from: [facility] demonstrating 1 prescription, for Crockett CT demonstrating bilateral nasal bone fractures. The [...] initial encounter Medications lidocaine-EPINEPHrine (Xylocaine W/EPI) 1 %-1:992636 injection 10 mL (has no administration in [...] Consent obtained: Verbal Consent given by: Patient [place] protocol: Imaging studies available: yes Patient identity [...] Discharge 04/13/2025 09:39:45 PM PATIENT REFERRED TO: [address] [address] Schedule an appointment as soon [...] scheduled for the surgery on 04/17/2018 at [facility] COPD (chronic obstructive pulmonary disease) (FORMERLY [facility]) Diabetes mellitus type 2, controlled (CMS/HCC) (FORMERLY [facility]) [place] (hard of hearing) HAS HEARING AID BOTH EARS , BUT DID NOT WEAR THEM Hyperlipidemia Hypertension MELISSA on CPAP [2] Past Surgical History: Procedure Laterality Date COLONOSCOPY COLONOSCOPY ELBOW SURGERY Left 1990 Lateral epicondylitis surgery EYE SURGERY bilat cataracts and implants JOINT REPLACEMENT Bilateral TKA L 2005, TKA R 2011 SKIN BIOPSY SPINAL FUSION 2000 L2,3,4; AT [facility] WRIST ARTHROSCOPY (HISTORICAL) Left 04/17/2018 [3] Family [...] Drug use: No Chetan Powell MD 04/13/252221 [facility] Discharge summary [facility] Medical Records Department [address] [place] [address] Emergency Department Summary 04/09/25 MR#: [id number] Acct: [id number] Name: KEVIN GRIFFITH Rep #:[id number] : [...] take blood thinners. Tetanus Immunization: <5 years [facility] Medical History Parkinson's disease Right bundle branch [...] change from the prior exam. Reading Location: [facility] Cervical Spine CT 04/09/25 11:34 IMPRESSION: 1. No acute fracture. 2. Degenerative changes of the cervical spine as described. Reading Location: [facility] Discharge Plan Triage Chief Complaint: Head Injury ED Provider: Surya Dumont Dx/Rx/DC Orders Clinical Impression: Fall, Laceration of scalp Instructions: ED Head Injury (Adult), ED Laceration Scalp Stitches or [place] Prescriptions: No Action pravastatin 80 mg tablet [...] wound, new or worsening symptoms. Print Language: Guinean Disposition Disposition: Home, Self Care What to do if you have Problems For any increased pain, shortness of breath, bleeding, nausea or vomiting, chestpain, or any unexpected problems, contact your Primary Care Provider. Call [facility] ([phone]) or report tothe closest Emergency Room. Call 911 if necessary. 04/09/25 1255 Cosigner Signature (if applicable): CC: Dr. Ron Cooley MD ~ Signed [facility]05-21-2025 Radiology Diagnostic study note [facility] Imaging Services [address] [place] [address] Spine Cervical without Contras MR#: [id number] Acct: [id number] Name: KEVIN GRIFFITH Rep #: [id number] : 1945 M 79 From: Kristy Corey MD PCP: Dr. Ron Cooley MD Status: RE G ER Study:Spine Cervical without Contras Date of Exam: 04/09/25 Exam# [id number] Ordering Dr: Surya Dumont MD EXAM: CT [...] the cervical spine as described. Reading Location: [facility] CC: Dr. Surya Dumont MD; Dr. Ron Cooley MD ~ Express Manager: Signed [facility]05-21-2025 Radiology Diagnostic study note [facility] Imaging Services [address] [place] [address] Brain/Head without Contrast MR#: [id number] Acct: [id number] Name: KEVIN GRIFFITH Rep #: [id number] : 1945 M 79 From: Kristy Corey MD PCP: Dr. Ron Cooley MD Status: RE G Study:Brain/Head without Contrast Date of Exa m: 04/09/25 Exam# [id number] Ordering Dr: Surya Dumont MD EXAM: CT [...] change from the prior exam. Reading Location: [facility] CC: Dr. Surya Dumont MD; Dr. Ron Cooley MD ~ Express Manager: Signed [facility]05-21-2025 Hospital Discharge instructions Additional Instructions Have brandi removed by your primary care provider in 7 to 10 days. There were a total of 5 brandi inserted. Return to the emergency department with fever, drainage of pus from wound, new or worsening symptoms.[facility] Work Phone: 1(266) 146-426803-28-2025 Radiology Diagnostic study note [facility] Imaging Services [address] [place], [place] [address] Spine Cervical without Contras MR#: [id number] Acct: [id number] Name: KEVIN GRIFFITH Rep #: [id number] : 1945 M 79 From: Roopa Corbett MD PCP: Dr. Ron Cooley MD Status: RE G ER Study:Spine Cervical without Contras Date of Exam: 02/14/25 Exam# [id number] Ordering Dr: Aziza Soto DO PROCEDURE: SPINE [...] ACUTE CERVICAL FRACTURE. DEGENERATIVE CHANGES. Reading Location: [facility] CC: Dr. Ron Cooley MD; Dr. Joe Soto DO ~ Express Manager: Signed [facility]03-28-2025 Radiology Diagnostic study note [facility] Imaging Services [address] [place] [address] Brain/Head without Contrast MR#: [id number] Acct: [id number] Name: KEVIN GRIFFITH Rep #: [id number] : 1945 M 79 From: Roopa Corbett MD PCP: Dr. Ron Cooley MD Status: RE G ER Study:Brain/Head without Contrast Date of Exa m: 02/14/25 Exam# [id number] Ordering Dr: Aziza Soto DO EXAM: BRAIN/HEAD [...] ischemic change and age-related change. Reading Location: [facility] CC: Dr. Ron Cooley MD; Dr. Joe Soto DO ~ Express Manager: Signed [facility]03-20-2025 Evaluation note* Diagnosis Onset Date Resolution Status [...] Polyneuropathy chronic March 20, 2 025 3:22pm [facility] Work Phone: 1(199) 161-806603-04-2025 Radiology Diagnostic study note [facility] Imaging Services [address] [place] [address] Chest PA and Lateral MR#: [id number] Acct: [id number] Name: KEVIN GRIFFITH Rep #: [id number] : 1945 M 79 From: Kristy Corey MD PCP: Dr. Ron Cooley MD Status: RE G CLI Study:Chest PA and Lateral Date of Exam: 01/21/25 Exam# [id number] Ordering Dr: Ron Cooley MD EXAM: XR Chest, 2 Views CLINICAL INDICATION: TECHNIQUE: Frontal and lateral views of the chest. COMPARISON: No relevant prior studies available. FINDINGS: LUNGS AND PLEURAL SPACES: Unremarkable. No consolidation. No pneumothorax. HEART: Unremarkable. No cardiomegaly. MEDIASTINUM: Unremarkable. Normal mediastinal contour. BONES/JOINTS: Unremarkable. No acute fracture. RAD/Chest PA and Lateral IMPRESSION: No acute cardiopulmonary process. Reading [facility] CC: Dr. Ron Cooley MD ~ Express Manager: Signed [facility]01-21-2025 Evaluation note* Diagnosis Onset Date Resolution Status Admit Date Diplopia acute December 10, 2024 10:37am Dysphagia acute December 10, 2024 10:37am Abnormality of gait and mobility chronic December 10 10:37am Dementia chronic December 10, 2024 10:37am Parkinson's disease chronic 2024 10:37am Polyneuropathy chronic December 102024 10:37am [facility] Work Phone: 1(486) 124-732501-21-2025 Evaluation note* Diagnosis Onset Date Resolution Status [...] 06, 2025 1:00pm Polyneuropathy chronic January 1:00pm [facility] Work Phone: 1(964) 955-219301-21-2025 Evaluation note* Diagnosis Onset Date Resolution Status [...] 3:22pm Polyneuropathy chronic March 20, 2 3:22pm [facility] Work Phone: 1(200) 885-912608-02-2023 [facility] 02-15-2023 NoteHNO ID: [id number] Author: Kori Ryder, PT, DPT Service: ? Author Type: Physical Therapist Type: Progress Notes Filed: 02/15/2023 7:45 AM Note Text: 02/15/2023 [facility] PHYSICAL THERAPY [...] to fx of foot. Kori Ryder, PT, [facility]03-28-2023 Miscellaneous Notes* Telephone Encounter - Seven Harrison RN - 02/14/2023 3:08 PM EDT MC message sent to patient and for further assessment. Awaiting reply. YVONNE Naik, RN February 14, 2023 3:08 PM * Telephone Encounter - Seven Harrison RN - 02/14/2023 3:04 PM EDT Received voicemail from patients' on Mon02/14/2023 2:28 PM Transcript below: This is Brennen Griffith. My phone number is [phone]. I'm calling for my Kevin Griffith. His [...] gonna be a alf and I don't wannado that so please [...] is very concerned. Please call her at [phone]. Raeann Carmita documented in this encounterW[facility]03-25-[address] Farooq [facility] February 11, 2023 2:01pm Note Date/Time February 11, 2023 1:2 0pm [facility] Medical Records Department [address] [place] [address] Emergency Department Summary 02/11/23 MR#: [id number] Acct: [id number] Name: KEVIN GRIFFITH Rep #:[id number] : [...] bear weight on it since the injury. [facility] Medical History Arthritis Back problem Cataract Essential [...] no malocclusion, able to move his mandible tnlj-izh-svrdt without any discomfort. Zygomatic arch is nontender [...] your Primary Care Provider. Call [facility] ([phone]) or report to the closest Emergency Room. Call 911 if necessary. 02/11/23 1401 <Electronically signed by Osman Farooq MD> Cosigner Signature (if applicable): CC: Dr. Ron Cooley MD; Dr. Arnaud Jean-Baptiste MD ~ Signed [facility] Work Phone: 1(953) 702-252902-24-2023 Miscellaneous Notes* Telephone Encounter - Karen Parra RN - 01/13/2023 2:26 PM EST Received voicemail 01-13-23 at 12:31 PM. My name is Brennen Griffith. My phone number is [phone]. This is in regard to Kevin Griffith. [...] is Brennen Griffith. My phone number is [phone]. My 's name is Kevin Griffith. He [...] to provider for review. documented in this encounterWooster [facility] Hospital01-23-2023 NoteHNO ID: [id number] Author: Leni Ruiz APRN.CAR REPAIRMAN Service: ? Author Type: Nurse Practitioner Type: Progress Notes Filed: 12/13/2022 10:48 PM Note Text: [facility] - FOLLOW UP EVALUATION Ron Cooley MD [address] [facility] [address] [facility] [address] Dear Ron Cooley MD: I had the [...] Flowsheet Row OT/PT/Speech Visit from 10/04/2022 in [facility] OT/PT/Speech Visit from 08/25/2022 in [facility] T [...] three times daily. insulin (more content not included)...[facility]01-23-2023 Instructions* Patient Instructions* Leni Ruiz APRN.CAR REPAIRMAN - 12/12/2022 2:56 PM EST It was [...] canhave them [facility]. Interested in clinical research? Not currently Movement Disorders Medication Schedule: Medications 6am 12pm 5pm Bedtime Sinemet 25/100 2 2 1 1 Sertaline 50mg 1 Return in about 6 months (around 06/11/2023). If there are any concerns before your next visit, please call or you can send a message through [employer]. You can also now schedule and select appointments through [employer]. Leni Ruiz APRN.CAR REPAIRMAN documented in this encounterWooster Community Hospital01-23-2023 History of Present illness Narrative* Leni Ruiz APRN.CAR REPAIRMAN - 12/12/2022 2:00 PM EST [facility] - FOLLOW UP EVALUATION Ron Cooley MD [address] [facility] [address] Dear Ron Cooley MD: I had the [...] Flowsheet Row OT/PT/Speech Visit from 10/04/2022 in [facility] OT/PT/Speech Visit from 08/25/2022 in [facility] T [...] D3 50 MCG, 2,000 UNIT, GUMMIES) fluticasone bpqaaxx-vmvwknolrwij-jqwylltlvo (TRELEGY ELLIPTA) 200-62.5-25 mcg powder inhaler Inhale1 [...] OXYGEN-AIR DELIVERY SYSTEMS MISC Inhale as instructed. Tremor Video CALIXTO 2 SENSOR kit use to TEST [...] 37.42 kg/m . Movement Disorders Scales Performed: [place] Cognitive Assessment (MoCA) Visuospatial/Executive 5 Naming 2 [...] canhave them [facility]. Interested in clinical research? Not currently Updated Movement Disorders Medication Schedule: Medications 6am 12pm 5pm Bedtime Sinemet 25/100 2 2 1 1 Sertaline 50mg 1 Level of service : 77853 (40-54 min). Time spent 51 ( 1:54pm-2:45pm) min on the day of service, which included preparing to see the patient, iqtq-li-apff patient care, completing clinical documentation, obtaining and/or reviewing separately obtained history, performing a medically appropriate examination, and counseling and educating the patient/family/caregiver. Leni Ruiz APRN.CAR REPAIRMAN documented in this encounterWooster Community Hospital11-21-2022 Miscellaneous Notes* Telephone Encounter - Thaddeus Wilkinson MD - 10/10/2022 3:30 PM EST Thanks for the FYI. Well done! JHS * Telephone Encounter - Seven Harrison RN - 10/10/2022 2:32 PM EST Received voicemail from patient on Mon10/10/2022 9:09 AM Transcript below: Morning this is Kevin Griffith and my phone number is [phone]. I calling to find out if there'sa [...] Voicemail left directing patient to a detailed Explore Engage message. Requested reply via MC or [facility]O. Provided office number. Message shared with covering provider as CAR is OOO. Seven Harrison, MSN, RN October 10, 2022 2:44 PM documented in this encounterWooster Community Hospital11-15-2022 NoteHNO ID: [id number] Author: Kori Ryder, PT, DPT Service: ? [...] Time Minutes (timed/untimed): 45 Kori Ryder PT, [facility]11-15-2022 History of Present illness Narrative* Kori [...] Kori Ryder PT, DPT documented in this encounterWooster Community Hospital10-28-2022 Miscellaneous Notes* Addendum Note - Jaylyn [...] Orders * Telephone Encounter - Lena [facility] - 09/16/2022 11:40 AM EDT Script pending to go to [facility]. documented in this encounterWooster Community Hospital10-28-2022 Miscellaneous Notes* Telephone Encounter - Seven Harrison RN - 09/16/2022 8:48 AM EDT Called and left voicemail that an updated RX had been sent for the Cymbalta. Provided office number for [facility] and option to message via Explore Engage. YVONNE Naik, RN September 16, 2022 8:48 [...] like to speak with Stefania. CALLBACK #: [phone] OK TO LEAVE MESSAGE: ok only on this number - do not leave at home number LAST FUV: 08/04/22 with CAR documented in this encounterWooster Community Hospital10-27-2022 NoteHNO ID: [id number] Author: Kori Ryder, PT, DPT Service: ? [...] Patient to be seen for Therapeutic exercise (98467);Neuromuscular re-education (85469);Manual therapy (98131);Therapeutic activities (05680);Self-fci management (59009);Gait Training (57279);Functional training;General Conditioning;Body Mechanics Training;Patient/Family/Caregiver Education PLAN FOR [...] Time Minutes (timed/untimed): 45 (more content not included)...[facility]bp[facility]-4430 NoteHNO ID: [id number] Author: Aleida Ramirez MD Service: ? Author [...] could not see the pt. REFERRAL SOURCE: [facility] Physician - Dr. Nieves CHIEF COMPLAINT: [...] 1 tablet by mouth twice daily. fluticasone dfdvrfz-hqedvpfhlurf-irgblefdja (TRELEGY ELLIPTA) 200-62.5-25 mcg powder inhaler Inhale [...] Negative for malaise, signif (more content not included)...[facility]10-14-2022 History of Present illness Narrative* Aleida [...] could not see the pt. REFERRAL SOURCE: [facility] Physician - Dr. Nieves CHIEF COMPLAINT: [...] 1 tablet by mouth twice daily. fluticasone wgfxsgi-whqqjmvmyyxt-hlgtxaxnyp (TRELEGY ELLIPTA) 200-62.5-25 mcg powder inhaler Inhale1 [...] prior psychiatrist Therapist: No prior therapist Current Pre K Teacher: None Last Hospitalization: Denies hospitalization. ECT: None Previous Discontinued Psychiatric Med Trials: None SUBSTANCE USE HISTORY: Nicotine: 40 py, quit 23 years ago Caffeine: Coffee, 3 cups/day Alcohol: Drank when he was younger, Marijuana: No history of use or dependence Cocaine: No history of use or dependence Opiods: No history of use or dependence SPIRITUALITY: [facility]: Kevin Griffith is the oldest of 6 siblings. The patient was born and raised in [place]. He completed school He described his childhood [...] PAGER : see directory documented in this encounterWooster [facility] Hospital10-06-2022 NoteHNO ID: [id number] Author: Kori Ryder, PT, DPT Service: ? [...] Time Minutes (timed/untimed): 38 Kori Ryder PT, DPTrumbull Regional Medical CenterTefodmjg46-19-2857 History of Present illness Narrative* Kori Ryder [...] Kori Ryder PT, DPT documented in this encounterWooster [facility] Hospital09-22-2022 NoteHNO ID: [id number] Author: Kori Ryder PT, DPT Service: ? [...] Planned: 4 Planned Treatment Interventions: Therapeutic exercise (91222);Neuromuscular re-education (53952);Manual therapy (01532);Therapeutic activities (49032);Self-fci management (87227);Gait Training (90804);Functional training;General Conditioning;Body Mechanics Training;Patient/Family/Caregiver Education PLAN FOR [...] the average of the (more content not included)...[facility]Mocceqfw90-32-7891 NoteHNO ID: [id number] Author: Jaylyn Nieves MD Service: ? Author Type: Physician Type: Progress Notes Filed: 08/04/2022 5:35 PM Note Text: [facility] - FOLLOW UP EVALUATION MD Bessie Gavin [address] [facility] [address] [facility] [address] I had the pleasure of seeing Mr. [...] 1 tablet by mouth twice daily. fluticasone bhafeuk-dusisjkafcfn-lymbyemfjf (TRELEGY ELLIPTA) 200-62.5-25 mcg powder inhaler Inhale [...] 24 hr table (more content not included)... [facility]09-15-2022 Instructions* Patient Instructions* aJylyn Nieves MD - 08/04/2022 2:55 PM EDT [...] or you can send a message through Explore Engage. You can also now schedule and select appointments through [employer] Eng[employer]. Jaylyn Nieves MD documented in this encounterWooster Community Hospital09-15-2022 History of Present illness Narrative* Jaylyn Nieves MD - 08/04/2022 2:20 PM EDT [facility] - FOLLOW UP EVALUATION Ron Cooley MD [address] [facility] [address] [facility] [address] I had the pleasure of seeing Mr. [...] 1 tablet by mouth twice daily. fluticasone jgsamja-nuxnqwxdqcuf-mwizxdqukk (TRELEGY ELLIPTA) 200-62.5-25 mcg powder inhaler Inhale1 [...] gait he reports both lightheadedness and imbalance. Keller symptomatic today upon standing but orthostatics were [...] or around: 11/03/22 Level of service : 07247 (40-54 min). Time spent 45 min on the day of service, which included preparing to see the patient, aoce-ea-gshd patient care, completing clinical documentation, performing a [...] Sincerely, Jaylyn Nieves MD documented in this encounterWooster Community Hospital09-09-2022 NoteHNO ID: [id number] Author: Kori Ryder, PT, DPT Service: ? Author Type: Physical Therapist Type: Progress Notes Filed: 07/29/2022 4:54 PM Note Text: 07/29/2022 [facility] PHYSICAL THERAPY [...] scheduled additional follow-up appointments. Kori Ryder, PT, [facility]09-01-2022 Miscellaneous Notes* Telephone Encounter - Seven Harrison RN - 07/21/2022 12:08 PM EDT Received voicemail from patient's on Rosalia 07/21/2022 10:52 AM Transcript below: Kaila my name is Brennen Griffith. My 's name is Kevin Griffith. He is a patient of Dr. Gordillo. My phone number is [phone]. I'm calling to speak to somebody regarding [...] Updates shared with MD CAR & SS, PROFESSIONAL SYSTEM ADMINISTRATOR. If any guidance is suggested, RN will contact with feedback. Seven Harrison, YVONNE, RN July 21, 2022 12:42 PM documented in this encounterWooster Community Hospital06-29-2022 Miscellaneous Notes* Telephone Encounter - Jaylyn [...] REJI: No Blossom S documented in this encounterWooster Community Hospital05-10-2022 NoteHNO ID: [id number] Author: Maine Medel, PT, DPT Service: ? Author Type: Physical Therapist Type: Progress Notes Filed: 03/29/2022 4:57 PM Note Text: Episode Visit Count: 1 Therapist That Will Oversee The Plan Of Care: maine Medle Start of Care Date: 03/29/22 Onset Date: [...] SLS >10 seconds B [facility]. Patient will demonstrate increase in B hip strength strength to 5/5 during manual muscle testing in order to improve function for balance Increase strength in ankle to 5/5 for balance. Be able to turn in a paimiut in 8 steps. Decrease tug to <10 seconds without AD for improved richard and step length Patient Goals: to learn about PD, to reduce falls Planned Interventions, Frequency, and Duration: Current Frequency: 1x/week Duration: 4 weeks (starting in one month) Total Number of Visits Planned: 4 Planned Treatment Interventions: Therapeutic exercise (45249);Neuromuscular re-education (10723);Manual therapy (78999);Therapeutic activities (53862);Self-fci management (61708);Gait Training (48203);Functional training;General Conditioning;Body Mechanics Training PLAN FOR NEXT [...] for double vision Visi (more content not included)...[facility] GeneralSobodeyo33-09-7353 NoteHNO ID: [id number] Author: MANUEL Grande/Eric Service: ? Author Type: Occupational Therapist Type: Progress Notes Filed: 03/29/2022 5:40 PM Note Text: Episode Visit Count: 2 Therapist That Will Oversee The Plan Of Care: Maria Isabel Romano Start of Care Date: 03/29/22 Onset Date: 06/14/21 Plan of Care Certification Date: 03/29/22 Next Certification Due Date: 03/29/22 Patient Identified by Name and Date of : Yes [facility] OCCUPATIONAL THERAPY [...] WITH LEVEL OF FUNCTION: Hand Strength R Quality Assurance Assistant Position 2 (lbs): 71 lbs L Quality Assurance Assistant Position 2 (lbs): 60 lbs R Lateral [...] States/Identifies;Return Demonstration TREATMENT: OT Treatment Interventions : Self-Mcfp Management Evaluation Self-Mcfp Management: 1: Pt and spouse educated in role of OT 2: Discussed importance of hydrating with medication and avoiding proteins with meds (more content not included)...[facility] GeneralMnjjqqxw54-08-2360 NoteHNO ID: [id number] Author: Sakina Ro CCC-SEAT MENDER Service: ? Author Type: Speech Language Pathologist Type: Progress Notes Filed: 03/29/2022 3:59 PM Note Text: Episode Visit Count: 1 Therapist That Will Oversee The Plan Of Care: Andrade Start of Care Date: 03/29/22 Onset Date: 11/20/20 Plan of Care Certification Date: 03/29/22 Patient Identified by Name and Date of : Yes [facility] SPEECH and [...] position 20-30 minutes following all oral intake SEAT MENDER Recommendations: Swallowing Precautions;Discontinue Speech Therapy Results and [...] MBS (pt reports had MBS done at [place] last year, which pt was told 'he did fine' and no recommendations for follow up ST or diet modifications made) Clinical Swallow [place] Swallow Protocol: Fail Fail: Coughing episodes (x1 [...] clear/cough after water (more content not included)... [facility] GeneralXuktyobp83-22-9967 History of Present illness Narrative* Maine Medel, [...] SLS >10 seconds B [facility]. Patient will demonstrate increase in B hip strength strength to 5/5 during manual muscle testing inorder to improve function for balance Increase strength in ankle to 5/5 for balance. Be able to turn in a paimiut in 8 steps. Decrease tug to <10 seconds without AD for improved richard and step length Patient Goals: to learn about PD, to reduce falls Planned Interventions, Frequency, and Duration: Current Frequency: 1x/week Duration: 4 weeks (starting in one month) Total Number of Visits Planned: 4 Planned Treatment Interventions: Therapeutic exercise (14620);Neuromuscular re- education (25873);Manual therapy (84017);Therapeutic activities (66091);Self- fci management (43778);Gait Training (28403);Functional training;General Conditioning;Body Mechanics Training PLAN FOR NEXT [...] Maine Medel PT DPT documented in this encounterWooster Community Hospital05-10-2022 History of Present illness Narrative* Sakina Ro CCC-SEAT MENDER - 03/29/2022 2:49 PM EDT Episode Visit Count: 1 Therapist That Will Oversee The Plan Of Care: Andrade Start of Care Date: 03/29/22 Onset Date: 11/20/20 Plan of Care Certification Date: 03/29/22 Patient Identified by Name and Date of : Yes [facility] SPEECH and [...] position 20-30 minutes following all oral intake SEAT MENDER Recommendations: Swallowing Precautions;Discontinue Speech Therapy Results and [...] MBS (pt reports had MBS done at [place] last year, which pt was told 'he [...] Eval Sound Production with Language Expression and Concrete Placement Equipment Operator (40152) Swallow / Dysphagia (37961): Skilled Intervention: Educated and advised patient / caregiver on texture and liquid consistency recommendations., Instructed patient / caregiver on recommended compensatory strategies to maximize safety with oral intake while maintaining nutrition, hydration and medication stability. Speech/Language Therapy (28160): Skilled Intervention: Educated and instructed patient on [...] Eval Sound Production with Language Expression and Concrete Placement Equipment Operator (38764), Clinical Swallow Evaluation (74886), Speech Treatment (22706) and Dysphagia Treatment (94626) Total time / Length of visit: 60 minutes Sakina Ro CCC-SEAT MENDER documented [facility] NoteHNO ID: [id number] Author: Jaylyn Nieves MD Service: ? Author Type: Physician Type: Progress Notes Filed: 03/29/2022 7:35 PM Note Text: [facility] - Multidisciplinary Clinic Jaylyn Nieves [address] [facility] [address] [facility] [address] Ron Cooley MD [address] [facility] [address] [facility] [address] I had the pleasure of seeing Mr. [...] addressed during this visit (more content not included)...[facility]05[facility]10[facility] Instructions* Patient Instructions* Jaylyn Nieves MD [...] or you can send a message through [employer]. You can also now schedule and select appointments through [employer]. Jaylyn Nieves MD documented in this encounterW[facility]22 History of Present illness Narrative* Jaylyn Nieves MD - 03/29/2022 12:27 PM EDT [facility] - Multidisciplinary Clinic Jaylyn Nieves [address] [facility] [address] [facility] [address] Ron Cooley MD [address] [facility] [address] [facility] [address] I had the pleasure of seeing Mr. [...] Then since last visit underwent surgical evaluation[facility] and DaTscan done there [...] in 1 week Level of service : 83628 (40-54 min). Time spent 53 min on the day of service, which included preparing to see the patient, kbpz-yf-omyc patient care, completing clinical documentation, counseling and [...] Sincerely, Jaylyn Nieves MD documented in this encounterW[facility]05-04-2022 Miscellaneous Notes* Telephone Encounter - Bryanna Haas MA - 03/23/2022 10:44 AM EDT I called patient to get him pre-roomed for his upcoming appointment. I had to leave a voicemail fora returned call. If patient calls back please transfer call to myself or a clinical staff member to complete this process. Thanks! Bryanna Haas MA documented in this encounterW[facility]04-28-2022 NoteHNO ID: [id number] Author: Jaylyn Nieves MD Service: ? Author Type: Physician Type: Progress Notes Filed: 03/18/2022 4:12 PM Note Text: [facility] - FOLLOW UP EVALUATION No referring provider defined for this encounter. Ron Cooley MD [facility] [address] [address] I had the pleasure of seeing Mr. [...] to be helpful Interval History Seen at [facility] for surgical evaluation. SDR was too low [...] mouth three times daily. (more content not included)...[facility]04-28-[facility] Instructions * Patient Instructions* Jaylyn Nieves [...] or you can send a message through [employer]. You can also now schedule and select appointments through [employer]. Jaylyn Nieves MD [facility] Pre-Visit Instructions Welcome to the Parkinson s Multi-Disciplinary Clinic! These visits will consist of four separate appointments provided by Neurology, Speech Therapy, Physical Therapy and Occupational Therapy. The appointments will take place at the [facility] and all occur on the [...] appointment. This call will serve as a dmf-xrdcy-pq and be used to review your medications, [...] caregivers, and staff alike. documented in this encounterWooster [facility]04-28-2022 History of Present illness Narrative* Jaylyn Nieves MD - 03/17/2022 2:51 PM EDT [facility] - FOLLOW UP EVALUATION No referring provider defined for this encounter. Ron Cooley MD [address] [facility] [facility] [address] I had the pleasure of seeing Mr. [...] to be helpful Interval History Seen at [facility] for surgical evaluation. SDR was too low [...] Then since last visit underwent surgical evaluationat [facility] and DaTscan done there [...] or around: 07/17/22 Level of service : 02040 (40-54 min). Time spent 54 min on the day of service, which included preparing to see the patient, hzld-ij-gjcp patient care, completing clinical documentation, obtaining and/or [...] Sincerely, Jaylyn Nieves MD documented in this encounterW[facility]03-24-2022 History of Present illness Narrative* Jaspreet Qureshi MA - 02/10/2022 11:48 AM EDT Images from the original note were not included. SDR for Yujose miguel_S came in at 0.34 with 973 available elements. Other than the low SDR no significantCT deviations noted. documented in this [id number] History of Present illness Narrative* Barb Morton MD - 12/22/2021 10:05 AM EST Video Visit [facility] NEUROSCIENCE [address] [facility] [facility] [address] Via Real-time Synchronous Audiovisual [facility] 12/21/2021 Barb Morton MD Provider Location: [facility] Patient Location Claims Assistant: None Patient Location: Patient's Home Patient: Kevin [...] that there are some limitations compared to kfvi-ao-duex evaluations. We elected to proceed. Subjective Patient [...] Office# Barb Morton MD documented in this [id number] Instructions* Patient Instructions* Barb Morton MD - 12/21/2021 1:33 PM EST Parkinson's Disease Continue the medication Use seroquel at night If you decide that you want to switch to Dr Royal let me know documented in this [id number] Miscellaneous Notes* Telephone Encounter - Jaspreet Qureshi MA - 11/09/2021 11:43 AM EST Spoke to Bryanna (Pharmacist) for clarification of patient's prescription carbidopa-levodopa (SINEMET) 25-100 mg per tablet [facility] will disp 540 (90 day supply) will 3 refills Please sign script that was called in documented in this [id number] History of Present illness Narrative* Barb Morton [...] pt on at 1230pm. documented in this [id number] History of Present illness Narrative* Barb Morton MD - 11/05/2021 12:21 PM EST I called on 11/05/21 to discuss the results of the meeting and to discuss questions documented in this [id number] History of Present illness Narrative* Jim Bradford [...] tremor. Therefore, the patient was evaluated by ourmnvement disorders neurologist, Dr. Barb Morton, as to [...] Dr Morton will call. documented in this [id number] History of Present illness Narrative* Jaspreet Qureshi MA - 11/03/2021 2:29 PM EST Images from the original note were not included. SDR - 0.34 with 973 available elements. Other than the low SDR no significant CT deviations noted. documented in this [id number] History of Present illness Narrative* Sarah Mckenzie, PT - 10/28/2021 11:00 AM EST Images from the original note were not included. [facility] Physical Therapy Evaluation Today's [...] whether he wants to follow-up hereor in [place] as it is significantly closer to home. [...] medications for tremor - has tried one. Keller drunk all of th time. Freezing of [...] mobility Social Support: Patient lives with others. Sikhism, social, or cultural considerations to be made [...] in the last 12 months: Yes (concussion) Sikhism, social, or cultural considerations to be made [...] at this time were answered. CPT Code 09272 Low 75012 Moderate 21943 High History 0 1-2 3+ Comorbidities: chronic [...] Clinical Impression: . Kevin Griffith presents to [facility] outpatient neurological rehab services for PT [...] above number. Sarah Mckenzie, PT STATE LICENSE, PT.[id number] documented in this [id number] Instructions* Patient Instructions* Barb Morton MD - 10/05/2021 11:[address] Head Physical therapy DATSCAN-the yes/no Parkinson's disease test Jim Suzette is the navigator Dr. Barb Morton MD Neurology Office Information Jaspreet Qureshi MA Office# documented in this [id number] History of Present illness Narrative* Barb Morton [...] whether he wants to follow-up hereor in [place] as it is significantly closer to home. [...] Without Contrast; Future - [facility] (PT[facility]); Future Patient Instructions Tremor CT Head Physical therapy DATSCAN-the yes/no Parkinson's disease test Jim Bradford is the navigator Dr. Barb Morton MD Neurology Office Information Jaspreet Qureshi MA Office# Dr. Barb Morton MD Neurology Office Information Jaspreet Qureshi MA Office# Barb Morton MD documented in this [id number] History of Present illness Narrative* Roberto Carlos [...] with simple mask at 10 LPM oxygen. animal care technician called. * Mame Machado PA-C - [...] Mame Machado PA-C documented in this [facility] Work Phone: [phone] 120-940106-16-2021 Hospital Discharge instructions* Instructions* Kori Casillas RN - 05/05/2021 Shower with the Hibiclens product given to you in Pre-Admission Testing. Follow the instructions and wear clean clothes to bed and clean linen on the bed the night before surgery. Follow the instructions and shower the morning of surgery and wear clean, comfortable clothes to the hospital. Please bring your [employer] Surgical Information folder on the day of [...] call your surgeon. You may use the old coin dealer parking located at the main entrance on [address] [facility] and take the H elevator to the first floor for same day surgery. Take a left after exiting the elevator and check in at the desk. * Attachments The following attachments cannot be sent through Care Everywhere. * Laminotomy and Laminectomy: General Info (Guinean) documented in this encounterSUMMA Work Phone: Discharge summary Author Surya Dumont [facility] Note Date/Time April 09, 2025 12:55 pm [facility] Medical Records Department [address] [place] [id number] Emergency Department Summary 04/09/25 MR#: [id number] Acct: [id number] Name: KEVIN GRIFFITH Rep #:[id number] : [...] take blood thinners. Tetanus Immunization: <5 years [facility] Medical History Parkinson's disease Right bundle branch [...] change from the prior exam. Reading Location: [facility] Cervical Spine CT 04/09/25 11:34 IMPRESSION: 1. No acute fracture. 2. Degenerative changes of the cervical spine as described. Reading Location: [facility] Discharge Plan Triage Chief Complaint: Head Injury [...] wound, new or worsening symptoms. Print Language: Guinean Disposition Disposition: Home, Self Care What to do if you have Problems For any increased pain, shortness of breath, bleeding, nausea or vomiting, chestpain, or any unexpected problems, contact your Primary Care Provider. Call [facility] ([phone]) or report to the closest Emergency Room. Call 911 if necessary. 04/09/25 1255 <Electronically signed by Surya Dumont MD> Cosigner Signature (if applicable): CC: Dr. Ron Cooley MD ~ Signed [facility] Work Phone: Evaluation note* Diagnosis Pre-op testing- Primary Preoperative examination, unspecified Abnormal EKG Nonspecific abnormal electrocardiogram (ECG) (EKG) Shortness of breath documented in this encounter [facility] Work Phone: Evaluation note* Diagnosis Abnormal electrocardiogram (ECG) (EKG) Shortness of breath Pre-op testing Preoperative examination, unspecified Abnormal EKG Nonspecific abnormal electrocardiogram (ECG) (EKG) documented in this encounter [facility] Work Phone: Evaluation note* Diagnosis Tremor, essential- Primary Essential and other specified forms of tremor documented in this encounter [facility] note* Diagnosis Tremor- Primary Abnormal involuntary movements documented in this encounter [facility] note* Diagnosis Tremor Abnormal involuntary movements Impaired mobility and activities of daily living Impairment of balance documented in this encounter [facility] note* Diagnosis Parkinson's disease (HCC)- Primary Paralysis agitans documented in this encounter [facility] noteNo assessment information availableWVan Wert County Hospital Work Phone: evaluation note* Diagnosis Parkinsonism, unspecified Parkinsonism type (HCC)- Primary Essential tremor Essential and other specified forms of tremor Dysphagia, unspecified type Gait instability Abnormality of gait documented in this encounter [facility] note* Diagnosis Parkinsonism, unspecified Parkinsonism type (HCC)- Primary Dysphagia, oropharyngeal phase Dysarthria documented in this encounter [facility] note* Diagnosis Parkinson disease (HCC)- Primary Paralysis agitans documented in this encounter [facility] note* Diagnosis Gait instability- Primary Abnormality of gait Parkinsonism, unspecified Parkinsonism type (HCC) Dysphasia Other speech disturbance Oropharyngeal dysphagia Dysphagia, oropharyngeal phase Decreased activities of daily living (ADL) documented in this encounter [facility] note* Diagnosis Onset Date Resolution Status Essential (primary) hypertension chronic Paroxysmal atrial fibrillation [facility] Work Phone: evaluation note* Diagnosis Parkinsonism, unspecified Parkinsonism type (HCC)- Primary Depression, unspecified depression type Anxiety Anxiety state, unspecified Orthostatic lightheadedness Dizziness and giddiness Dysphagia, unspecified type documented in this encounter [facility] note* Diagnosis Parkinsonism, unspecified Parkinsonism type (HCC)- Primary Gait instability Abnormality of gait Leg weakness, bilateral Other musculoskeletal symptoms referable to limbs Imbalance Abnormality of gait documented in this encounter [facility] note* Diagnosis MELISSA (generalized anxiety disorder)- Primary Generalized anxiety disorder Depression, unspecified depression type Parkinsonism, unspecified Parkinsonism type (HCC) documented in this encounter [facility] note* Diagnosis Parkinsonism, unspecified Parkinsonism type (HCC)- Primary Gait instability Abnormality of gait Leg weakness, bilateral Other musculoskeletal symptoms referable to limbs Imbalance Abnormality of gait documented in this encounter [facility] note* Diagnosis Parkinsonism, unspecified Parkinsonism type (HCC)- Primary Orthostatic hypotension Anxiety Anxiety state, unspecified documented in this encounter [facility] note* Diagnosis Onset Date Resolution Status Parkinsons acute Essential (primary) hypertension chronic HLD (hyperlipidemia) chronic Paroxysmal atrial fibrillation [facility] Work Phone: Evaluation note* Diagnosis Onset Date Resolution Status Polyneuropathy acute Abnormality of gait and mobility chronic Dementia chronic Parkinson's disease chronic Essential (primary) hypertension chronic HLD (hyperlipidemia) chronic Paroxysmal atrial fibrillation chronic [facility] Work Phone: Evaluation note* Diagnosis Onset Date Resolution Status Abnormality of gait and mobility chronic Dementia chronic Parkinson's disease chronic Polyneuropathy chronic Fatigue noneactive [facility] Work Phone: Evaluation note* Diagnosis Onset Date Resolution Status Diplopia acute Right abducens nerve palsy a cute Abnormality of gait and mobility chronic Dementia chronic Parkinson's disease chronic Polyneuropathy chronic [facility] Work Phone: Evaluation note* Diagnosis Facial laceration, initial encounter- Primary Fall, initial encounter Open fracture of nasal bone, initial encounter [facility] Dis[facility] instructionsWVan [facility] Work Phone: Hospital Discharge instructions Additional Instructions Leave boot on until you [facility] Work Phone: Reason for referral (narrative)No reason for referral information availableMercy Health Will[facility] Hospital Work Phone: Reason for Referral Status Reason Specialty Diagnoses / Procedures Re ferred By Contact Referred To Contact Open Cardiology Diagnoses Pre-op testing Abnormal EKG Shortness of breath Procedures ECHO Pharmacological Stress Test Raeann Holland, GINGER FARMER - CAR REPAIRMAN [address] [facility] [address] [place] [address] Specialty Diagnoses / Procedures Referred By Michel higginbotham Referred To Contact Neurology Diagnoses Tremor, essential Patricia Mcgowan MD [address] [place] [address] Barb Morton MD [address] [facility] [address] [place] [address] Referral ID Status Reason Start Date Expiration Date V isits Requested Visits Authorized [id number] Pending Review 09/27/2021 09/27/2022 1 1 Specialty Diagnoses / Procedures Referred By Contac t Referred To Contact Rehabilitation [place] [address] [place] [address] [place] [address] Referral ID Status Reason Start Date Expiration Date V isits Requested Visits Authorized [id number] Authorized 10/05/2021 10/05/2022 1 1 Specialty Diagnoses / Procedures Referred By Contac t Referred To Contact Radiology Diagnoses Tremor Procedures CT Head Or Brain Without Contrast Barb Morton MD [address] [place] [address] [place] [address] Referral ID Status Reason Start Date Expiration Date V isits Requested Visits Authorized [id number] New Request 10/05/2021 10/05/2022 1 1 Specialty Diagnoses / Procedures Referred By Contac t Referred To Contact Radiology Diagnoses Tremor Procedures NM Brain Datscan SPECT CT Single Area Single Day Barb Morton MD [address] [place] [address] [place] [address] Nuclear Medicine [address] [place] [phone] Referral ID Status Reason Start Date Expiration Date V isits Requested Visits Authorized [id number] Pending Review 10/05/2021 10/05/2022 4 4 Specialty Diagnoses / Procedures Referred By Contac t Referred To Contact Diagnoses Parkinsonism, unspecified Parkinsonism type (HCC) Procedures PROVIDER ORDERED FOLLOW UP OFFICE/OUTPATIENT [facility] 60-74 MINUTES Jaylyn Nieves MD [address] [place] [address] Referral ID Status Reason Start Date Expiration Date Visits Requested Visits Authorized [id number] Authorized PCP Requested Referral 03/17/2022 06/15/2022 1 1 Specialty Diagnoses / Procedures Referred By Contac t Referred To Contact Neurology / NEUROLOGICAL CAODAISM Diagnoses Parkinsonism, unspecified Parkinsonism type (HCC) Procedures CONSULT TO [facility] OFFICE/OUTPATIENT [facility] 60-74 MINUTES Jaylyn Nieves MD [address] [address] [facility] [address] [place] [address] Referral ID Status Reason Start Date Expiration Date Visits Requested Visits Authorized [id number] Authorized PCP Requested Referral 03/17/2022 03/17/2023 1 1 Specialty Diagnoses / Procedures Referred By Contac t Referred To Contact [facility] Diagnoses Parkinsonism, unspecified Parkinsonism type (HCC) Gait instability Procedures CONSULT TO PHYSICAL THERAPY PHYSICAL THERAPY EVALUATION HIGH COMPLEX 45 MINS Jaylyn Nieves MD [address] [address] Referral ID Status Reason Start Date Expiration Date Visits Requested Visits Authorized [id number] Authorized PCP Requested Referral Auto-Generate d Referral 03/29/2022 03/29/2023 99 99 Specialty Diagnoses / Procedures Referred By Contac t Referred To Contact [facility] Diagnoses Parkinsonism, unspecified Parkinsonism type (HCC) Gait instability Decreased activities of daily living (ADL) Procedures CONSULT TO METAL WINDOW FRAME MAKER OCCUPATIONAL THERAPY EVAL HIGH COMPLEX 60 MINS Jaylyn Nieves MD [address] [address] Referral ID Status Reason Start Date Expiration Date Visits Requested Visits Authorized [id number] Authorized PCP Requested Referral Auto-Generate d Referral 03/29/2022 03/29/2023 99 99 Specialty Diagnoses / Procedures Referred By Contac t Referred To Contact Diagnoses Parkinsonism, unspecified Parkinsonism type (HCC) Oropharyngeal dysphagia Procedures CONSULT TO SPEECH THERAPY Jaylyn Nieves MD [address] [address] Referral ID Status Reason Start Date Expiration Date Visits Requested Visits Authorized [id number] Authorized PCP Requested Referral 03/29/2022 06/27/2022 3 3 Referral ID Status Reason Start Date Expiration Date Visits Requested Visits Authorized [id number] Authorized PCP Requested Referral 08/04/2023 1 1 Specialty Diagnoses / Procedures Referred By Contac t Referred To Contact [facility] Diagnoses Parkinsonism, unspecified Parkinsonism type (HCC) Procedures CONSULT TO PHYSICAL THERAPY PHYSICAL THERAPY EVALUATION HIGH COMPLEX 45 MINS Jaylyn Nieves MD [address] [place] [address] [facility] [place] [address] [place] [address] Referral ID Status Reason Start Date Expiration Date Visits Requested Visits Authorized [id number] Authorized PCP Requested Referral Auto-Generate d Referral 08/04/2022 08/04/2023 99 99 Specialty Diagnoses / Procedures Referred By Contac t Referred To Contact Diagnoses Parkinsonism, unspecified Parkinsonism type (HCC) Depression, unspecified depression type Procedures CONSULT TO PSYCHIATRY OFFICE/OUTPATIENT [facility] 60-74 MINUTES Jaylyn Nivees MD [address] [place] [address] Referral ID Status Reason Start Date Expiration Date Visits Requested Visits Authorized [id number] Pending Review PCP Requested Referral 08/04/2022 08/04/2023 1 1 Specialty Diagnoses / Procedures Referred By Contac t Referred To Contact Diagnoses Depression, unspecified depression type Procedures PROVIDER ORDERED FOLLOW UP OFFICE/OUTPATIENT [facility] 60-[place] [address] [place] [address] Referral ID Status Reason Start Date Expiration Date Visits Requested Visits Authorized [id number] Authorized PCP Requested Referral 11/28/2022 09/02/2023 1 1 Specialty Diagnoses / Procedures Referred By Contac t Referred To Contact [facility] Diagnoses Parkinsonism, unspecified Parkinsonism type (HCC) Procedures CONSULT TO METAL WINDOW FRAME MAKER OCCUPATIONAL THERAPY EVAL HIGH COMPLEX 60 MINS Leni Ruiz APRN.CAR REPAIRMAN [address] [place] [address] [facility] [place] [address] [place] [address] Referral ID Status Reason Start Date Expiration Date Visits Requested Visits Authorized [id number] Authorized PCP Requested Referral Auto-Generate d Referral 12/12/2022 12/12/2023 99 99 Specialty Diagnoses / Procedures Referred By Michel t Referred To Contact [facility] Diagnoses Parkinsonism, unspecified Parkinsonism type (HCC) Procedures CONSULT TO PHYSICAL THERAPY PHYSICAL THERAPY EVALUATION HIGH COMPLEX 45 [facility] Leni Ruiz APRN.CAR REPAIRMAN [address] [place] [address] [facility] [place] [address] [place] [address] Referral ID Status Reason Start Date Expiration Date Visits Requested Visits Authorized [id number] Authorized PCP Requested Referral Auto-Generate d Referral 12/12/2022 12/12/2023 99 99 Advance Directives No Advanced Directives Records FoundDocuments on File Type Date Recorded Patient Coffee Shop Manager Expl anation ACP-Advance Directive ACP-Power of Senior Tableau Developer Latest Code Status on File Code Status Date Activated Date Inactivated Comments Full Code 04/17/2018 6:13 AM 04/17/2018 1:26 PM Documents on File Type Date Recorded Patient Coffee Shop Manager Expl anation ACP-Advance Directive ACP-Power of Senior Tableau Developer Latest Code Status on File Code Status Date Activated Date Inactivated Comments Full Code 05/19/2021 6:48 AM Full Code 04/17/2018 6:13 AM 04/17/2018 1:26 PM Documents on File Type Date Recorded Patient Coffee Shop Manager Expl anation Advance Directives and Living Will Documents on File Type Date Recorded Patient Coffee Shop Manager Expl anation Advance Directives and Living Will Documents on File Type Date Recorded Patient Coffee Shop Manager Expl anation Advance Directives and Livin g Will 11/01/2021 10:44 AM Advance Directive Response Recorded Date/ Time Living Will Yes January 28, 2022 2:22am Power of Senior Tableau Developer Yes January 28 2:22am Advance Directive Response Recorded Date/ Time Name of Medical Power of Senior Tableau Developer BRENNEN GRIFFITH ( ) January 28, 2022 2:22am Living Will Yes January 28, 2022 2:22am Power of Senior Tableau Developer Yes January 28 2:22am Advance Directive Response Recorded Date/ Time Living Will Yes January 28, 2022 1:22am Power of Senior Tableau Developer Yes January 28 1:22am Advance Directive Response Recorded Date/ Time Name of Medical Power of Senior Tableau Developer February 11, 2023 12:56pm Living Will Yes February 11, 2023 12:56pm Power of Senior Tableau Developer Yes February 11 12:56pm Advance Directive Response Recorded Date/ Time Living Will Yes February 11, 2023 12:56pm Power of Senior Tableau Developer Yes February 11 12:56pm Advance Directive Response Recorded Date/ Time Living Will Yes February 11, 2023 11:56am Power of Senior Tableau Developer Yes February 11 11:56am Advance Directive Response Recorded Date/ Time Living Will Yes February 11, 2023 12:56pm Power of Senior Tableau Developer Yes February 11 12:56pm Living Will Yes October 12 12:40pm Power of Senior Tableau Developer Yes October 12, 2024 12:40pm Name of Medical Power of Senior Tableau Developer brennen griffith October 12, 2024 12:40pm Living Will Yes December 05 6:16pm Power of Senior Tableau Developer Yes December 05, 2024 6:16pm Name of Medical Power of Senior Tableau Developer BRENNEN GRIFFITH December 05, 2024 6:16pm Advance Directive Response Recorded Date/ Time Living Will Yes February 11, 2023 12:56pm Do you have a Healthcare Power of Senior Tableau Developer? Yes February 11, 2023 12:56pm Living Will Yes December 05 6:16pm Do you have a Healthcare Power of Senior Tableau Developer? Yes December 05, 2024 6:16pm Name of Medical Power of Senior Tableau Developer BRENNEN GRIFFITH December 05, 2024 6:16pm Living Will No February 14, 2025 9:21pm Do you have a Healthcare Power of Senior Tableau Developer? No February 14, 2025 9:21pm Advance Directive Response Recorded Date/ Time Living Will Yes February 11, 2023 12:56pm Do you have a Healthcare Power of Senior Tableau Developer? Yes February 11, 2023 12:56pm Living Will No February 14, 2025 9:21pm Do you have a Healthcare Power of Senior Tableau Developer? No February 14, 2025 9:21pm Advance Directive Response Recorded Date/ Time Living Will Yes February 11, 2023 12:56pm Do you have a Healthcare Power of Senior Tableau Developer? Yes February 11, 2023 12:56pm Living Will No February 14, 2025 9:21pm Do you have a Healthcare Power of Senior Tableau Developer? No February 14, 2025 9:21pm Do you have a Healthcare Power of Senior Tableau Developer? Yes April 09, 2025 11:28am Healthcare Agents on File Name Relationship Healthcare Agent Jimnc p Communication Brennen Griffith Spouse First Alternate Health Care Agent Advance Directive Response Recorded Date/ Time Living Will No February 14, 2025 9:21pm Do you have a Healthcare Power of Senior Tableau Developer? No February 14, 2025 9:21pm Do you have a Healthcare Power of Senior Tableau Developer? Yes April 09, 2025 11:28am Do you have a Healthcare Power of Senior Tableau Developer? No May 11, 2025 5:51pm Summary Purpose [...] or prosecute any alcohol or drug abuse patient.[facility] the event this information is protected by the Federal Confidentiality of Alcohol and Drug Abuse Patient Records regulations: The Federal rules restrict any use of the information to criminally investigate or prosecute any alcohol or drug abuse patient.[facility] the event this information is protected by the Federal Confidentiality of Alcohol and Drug Abuse Patient Records regulations: The Federal rules restrict any use of the information to criminally investigate or prosecute any alcohol or drug abuse patient.[facility] the event this information is protected by the Federal Confidentiality of Alcohol and Drug Abuse Patient Records regulations: The Federal rules restrict any use of the information to criminally investigate or prosecute any alcohol or drug abuse patient.[facility] the event this information is protected by the Federal Confidentiality of Alcohol and Drug Abuse Patient Records regulations: The Federal rules restrict any use of the information to criminally investigate or prosecute any alcohol or drug abuse patient.[facility] the event this information is protected by the Federal Confidentiality of Alcohol and Drug Abuse Patient Records regulations: The Federal rules restrict any use of the information to criminally investigate or prosecute any alcohol or drug abuse patient.[facility] the event this information is protected by the Federal Confidentiality of Alcohol and Drug Abuse Patient Records regulations: The Federal rules restrict any use of the information to criminally investigate or prosecute any alcohol or drug abuse patient.[facility] the event this information is protected by the Federal Confidentiality of Alcohol and Drug Abuse Patient Records regulations: The Federal rules restrict any use of the information to criminally investigate or prosecute any alcohol or drug abuse patient.[facility] the event this information is protected by the Federal Confidentiality of Alcohol and Drug Abuse Patient Records regulations: The Federal rules restrict any use of the information to criminally investigate or prosecute any alcohol or drug abuse patient.[facility] the event this information is protected by the Federal Confidentiality of Alcohol and Drug Abuse Patient Records regulations: The Federal rules restrict any use of the information to criminally investigate or prosecute any alcohol or drug abuse patient.[facility] the event this information is protected by the Federal Confidentiality of Alcohol and Drug Abuse Patient Records regulations: The Federal rules restrict any use of the information to criminally investigate or prosecute any alcohol or drug abuse patient.[facility] the event this information is protected by the Federal Confidentiality of Alcohol and Drug Abuse Patient Records regulations: The Federal rules restrict any use of the information to criminally investigate or prosecute any alcohol or drug abuse patient.[facility] the event this information is protected by the Federal Confidentiality of Alcohol and Drug Abuse Patient Records regulations: The Federal rules restrict any use of the information to criminally investigate or prosecute any alcohol or drug abuse patient.[facility] the event this information is protected by the Federal Confidentiality of Alcohol and Drug Abuse Patient Records regulations: The Federal rules restrict any use of the information to criminally investigate or prosecute any alcohol or drug abuse patient.[facility] the event this information is protected by the Federal Confidentiality of Alcohol and Drug Abuse Patient Records regulations: The Federal rules restrict any use of the information to criminally investigate or prosecute any alcohol or drug abuse patient.[facility] the event this information is protected by the Federal Confidentiality of Alcohol and Drug Abuse Patient Records regulations: The Federal rules restrict any use of the information to criminally investigate or prosecute any alcohol or drug abuse patient.[facility] the event this information is protected by the Federal Confidentiality of Alcohol and Drug Abuse Patient Records regulations: The Federal rules restrict any use of the information to criminally investigate or prosecute any alcohol or drug abuse patient.[facility] HospitalIn the event this information is protected by the Federal Confidentiality of Alcohol and Drug Abuse Patient Records regulations: The Federal rules restrict any use of the information to criminally investigate or prosecute any alcohol or drug abuse patient.[facility]In the event this information is protected by the Federal Confidentiality of Alcohol and Drug Abuse Patient Records regulations: The Federal rules restrict any use of the information to criminally investigate or prosecute any alcohol or drug abuse patient.[facility] HospitalIn the event this information is protected by the Federal Confidentiality of Alcohol and Drug Abuse Patient Records regulations: The Federal rules restrict any use of the information to criminally investigate or prosecute any alcohol or drug abuse patient.[facility] Reason for Visit (unrecogniz ed section and content) Reason Comments Parkinsonism, unspecified Parkinsonism t ype (HCC) Specialty Diagnoses / Procedures Referred By Contac t Referred To Contact Diagnoses Parkinsonism, unspecified Parkinsonism type (HCC) Procedures PROVIDER ORDERED FOLLOW UP OFFICE/OUTPATIENT NEW HIGH MDM 60-74 MINUTES Jaylyn Nieves MD [address] [place] [id number] Referral ID Status Reason Start Date Expiration Date V isits Requested Visits Authorized [id number] Closed PCP Requested Referral 11/03/2022 08/04/2023 1 1 Status Reason Specialty Diagnoses / Procedures Re ferred By Contact Referred To Contact Open Cardiology Diagnoses Pre-op testing Abnormal EKG Shortness of breath Procedures ECHO Pharmacological Stress Test Raeann Holland, GINGER FARMER - CAR REPAIRMAN [address] [facility] [address] [place] [address] Reason Comments Consult Ref by: PATRICIA MCGOWAN 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,essential (HIFU interest - saw us on the website), Tremors Dx; ET approx 1 year Specialty Diagnoses / Procedures Referred By Michel higginbotham Referred To Contact Neurology Diagnoses Tremor, essential Patricia Mcgowan MD [address] [facility] [address] [place] [address] Barb Morton MD [address] [facility] [address] [place] [address] Referral ID Status Reason Start Date Expiration Date Visits Re quested Visits Authorized [id number] Closed 09/27/2021 09/27/2022 1 1 Reason Comments Physical Therapy Neuro Specialty Diagnoses / Procedures Referred By Michel higginbotham Referred To Contact Rehabilitation Diagnoses Tremor Barb Morton MD [address] [facility] [address] [place] [address] [facility] [place] [address] [place] [address] Referral ID Status Reason Start Date Expiration Date V isits Requested Visits Authorized [id number] Authorized 10/05/2021 10/05/2022 1 199 Reason Onset Date Comments Medication Refill 11/05/2021 Reason Onset Date Comments Medication Refill 11/09/2021 Reason Comments Follow Up Parkinson's Reason Comments Upcoming Appointment Pre-rooming phone c all Reason Comments Speech Evaluation Specialty Diagnoses / Procedures Referred By Michel higginbotham Referred To Contact Speech-Language Pathologist / SPEECH THERAPY Diagnoses PD Clinic Procedures [facility] Jaylyn Nieves MD [address] [address] Amaya Deleon, CCC-SEAT MENDER [address] [place] [address] Referral ID Status Reason Start Date Expiration Date V isits Requested Visits Authorized [id number] Authorized 03/29/2022 06/27/2022 99 99 Reason Comments PT Eval Patient Education Specialty Diagnoses / Procedures Referred By Contac t Referred To Contact Physical Therapy / PHYSICAL THERAPY Diagnoses PD Clinic Procedures NEW [facility] PT PD CLINIC Jaylyn Nieves MD [address] [address] Maine Medel, PT, DPT [address] [place] [id number] Referral ID Status Reason Start Date Expiration Date V isits Requested Visits Authorized [id number] Authorized 03/29/2022 06/27/2022 99 99 Specialty Diagnoses / Procedures Referred By Contac t Referred To Contact Neurology / NEUROLOGICAL CAODAISM Diagnoses Parkinsonism, unspecified Parkinsonism type (HCC) Procedures CONSULT TO [facility] OFFICE/OUTPATIENT NEW [facility] MDM 60-74 MINUTES Jaylyn Nieves MD [address] [address] [facility] [address] [place] [address] Referral ID Status Reason Start Date Expiration Date V isits Requested Visits Authorized [id number] Closed PCP Requested Referral 03/17/2022 03/17/2023 1 1 Reason Onset Date Comments Refill Request 05/18/2022 Reason Comments Appointment Earlier appointment request d/t worsening symptoms Reason Comments Follow Up Referral ID Status Reason Start Date Expiration Date V isits Requested Visits Authorized [id number] Closed PCP Requested Referral 03/17/2022 06/15/2022 1 1 Reason Comments Physical Therapy Specialty Diagnoses / Procedures Referred By Contac t Referred To Contact [facility] Diagnoses Parkinsonism, unspecified Parkinsonism type (HCC) Procedures CONSULT TO PHYSICAL THERAPY PHYSICAL THERAPY EVALUATION HIGH COMPLEX 45 MINS Jaylyn Nieves MD [address] [facility] [address] [place] [address] [facility] [place] [address] [place] [address] Referral ID Status Reason Start Date Expiration Date Visits Requested Visits Authorized [id number] Authorized PCP Requested Referral Auto-Generate d Referral 08/04/2022 08/04/2023 99 99 Reason Comments New Patient Specialty Diagnoses / Procedures Referred By Contac t Referred To Contact Diagnoses Parkinsonism, unspecified Parkinsonism type (HCC) Depression, unspecified depression type Procedures CONSULT TO PSYCHIATRY OFFICE/OUTPATIENT NEW HIGH MDM 60-74 MINUTES Jaylyn Nieves MD [address] [address] Referral ID Status Reason Start Date Expiration Date Visits Requested Visits Authorized [id number] Pending Review PCP Requested Referral 08/04/2022 08/04/2023 [...] section and content) DATE CREATED AUTHOR 05/13/2021 [facility] DATE CREATED AUTHOR AUTHOR'S ORGANIZ ATION 05/20/2021 [facility] DATE CREATED AUTHOR AUTHOR'S ORGANIZ ATION 12/22/2021 [facility] DATE CREATED AUTHOR AUTHOR'S ORGANIZ ATION 02/18/2023 [facility] DATE CREATED AUTHOR AUTHOR'S ORGANIZ ATION 02/19/2023 [facility] DATE CREATED AUTHOR AUTHOR'S ORGANIZ ATION 04/05/2025 [facility] DATE CREATED AUTHOR AUTHOR'S ORGANIZ ATION 04/18/2025 [facility] DATE CREATED AUTHOR AUTHOR'S ORGANIZ ATION 06/04/2025 [facility] Scheduled Active and Recently Administ ered Medications [...] % 100 mL IVPB 3,000 mg, Intravenous, BROOM HANDLE DIPPER TO O.R., 1 dose, On Mon05/19/21 at [...] (day of surgery) 0710 ([facility] - [facility] ider: Asya Torre RN) PRN Medication Order [...] Cielo Valverde RN) lidocaine-EPINEPHrine (Xylocaine W/EPI) 1 %-1:[id number] injection 10 mL (COMPLETED) 10 mL, Infiltration, [...] Care Teams (unrecognized sec tion and content) Dryland Farmer Relationship Specialty Start Date End Date Patricia Mcgowan MD [address] [facility] [address] [place] [address] PCP - General Family Medicine 10/28/21 Dryland Farmer Relationship Specialty Start Date End Date Patricia Mcgowan MD [address] [facility] [address] [place] [address] PCP - General Family Medicine 10/28/21 Dryland Farmer Relationship Specialty Start Date End Date Patricia Mcgowan MD [address] [facility] [address] [place] [address] PCP - General Family Medicine 10/28/21 Dryland Farmer Relationship Specialty Start Date End Date Patricia Mcgowan MD [address] [facility] [address] [place] [address] PCP - General Family Medicine 10/28/21 Dryland Farmer Relationship Specialty Start Date End Date Patricia Mcgowan MD [address] [facility] [address] [place] [address] PCP - General Family Medicine 10/28/21 Dryland Farmer Relationship Specialty Start Date End Date Patricia Mcgowan MD [address] [facility] [address] [place] [address] PCP - General Family Medicine 10/28/21 Dryland Farmer Relationship Specialty Start Date End Date Patricia Mcgowan MD [address] [facility] [address] [place] [address] PCP - General Family Medicine 10/28/21 Dryland Farmer Relationship Specialty Start Date End Date Ron Cooley [address] [place] [address] PCP - General Family Practice 03/17/22 Dryland Farmer Relationship Specialty Start Date End Date Ron Cooley [address] [place] [address] PCP - General Family Practice 03/17/22 Dryland Farmer Relationship Specialty Start Date End Date Ron Cooley [address] [place] [address] PCP - General Family Practice 03/17/22 Dryland Farmer Relationship Specialty Start Date End Date Ron Cooley [address] [place] [address] PCP - General Family Practice 03/17/22 Dryland Farmer Relationship Specialty Start Date End Date Ron Cooley [address] [place] [address] PCP - General Family Practice 03/17/22 Dryland Farmer Relationship Specialty Start Date End Date Ron Cooley [address] [place] [address] PCP - General Family Practice 03/17/22 Dryland Farmer Relationship Specialty Start Date End Date Ron Cooley [address] [place] [address] PCP - General Family Practice 03/17/22 Dryland Farmer Relationship Specialty Start Date End Date Ron Cooley [address] [place] [address] PCP - General Family Practice 03/17/22 Dryland Farmer Relationship Specialty Start Date End Date Ron Cooley [address] [place] [address] PCP - General Family Practice 03/17/22 Dryland Farmer Relationship Specialty Start Date End Date Ron Cooley [address] [place] [address] PCP - General Family Medicine 03/17/22 Dryland Farmer Relationship Specialty Start Date End Date Ron Cooley [address] [place] [address] PCP - General Family Medicine 03/17/22 Dryland Farmer Relationship Specialty Start Date End Date Ron Cooley [address] [place] [address] PCP - General Family Medicine 03/17/22 Erika May, GINGER FARMER.CAR REPAIRMAN [address] [place] [address] Specialty Chemical Laboratory Technician Neurology 09/07/22 Dryland Farmer Relationship Specialty Start Date End Date Ron Cooley [address] [facility] [address] [place] [address] PCP - General Family Medicine 03/17/22 Erika May, GINGER FARMER.CAR REPAIRMAN [address] [place] [address] Specialty Chemical Laboratory Technician Neurology 09/07/22 Dryland Farmer Relationship Specialty Start Date End Date Ron Cooley [address] [facility] [address] [place] [address] PCP - General Family Medicine 03/17/22 Erika May, GINGER FARMER.CAR REPAIRMAN [address] [place] [address] Specialty Chemical Laboratory Technician Neurology 09/07/22 Dryland Farmer Relationship Specialty Start Date End Date Ron Cooley [address] [facility] [address] [place] [address] PCP - General Family Medicine 03/17/22 Erika May, GINGER FARMER.CAR REPAIRMAN [address] [place] [address] Specialty Chemical Laboratory Technician Neurology 09/07/22 Tatiana Rodas, GINGER FARMER.CAR REPAIRMAN [address] [place] [address] Specialty Chemical Laboratory Technician Neurology 12/05/22 Dryland Farmer Relationship Specialty Start Date End Date Ron Cooley [address] [facility] [address] [place] [address] PCP - General Family Medicine 03/17/22 Erika May, GINGER FARMER.CAR REPAIRMAN [address] [place] [facility] [place] [address] Specialty Chemical Laboratory Technician Neurology 09/07/22 Tatiana Rodas, GINGER FARMER.CAR REPAIRMAN [address] [place] [address] Specialty Chemical Laboratory Technician Neurology 12/05/22 Dryland Farmer Relationship Specialty Start Date End Date Ron Cooley [address] [facility] [address] [place] [address] PCP - General Family Medicine 03/17/22 Erika May, GINGER FARMER.CAR REPAIRMAN [address] [place] [address] Specialty Chemical Laboratory Technician Neurology 09/07/22 Tatiana Rodas, GINGER FARMER.CAR REPAIRMAN [address] [place] [address] Specialty Chemical Laboratory Technician Neurology 12/05/22 Team Status: Active Member Role [...] Dr. Natasha Gregory MD Attending Provider Active Dryland Farmer Relationship Specialty Start Date End Date RejiRon marcos [address] [facility] [address] [place], [place] [address] PCP - General Family Medicine 03/17/22 Erika May, GINGER FARMER.CAR REPAIRMAN [address] [place] [address] Specialty Chemical Laboratory Technician Neurology 09/07/22 Tatiana Rodas, GINGER FARMER.CAR REPAIRMAN [address] [place] [address] Specialty Chemical Laboratory Technician Neurology 12/05/22 Team Status: Inactive Member Role Status Dates Dr. Ron Cooley MD Primary Care Provider Active Dr. Osman Farooq MD Emergency Provider Active Dryland Farmer Relationship Specialty Start Date End Date Ron Cooley [address] [facility] [address] [place] [address] PCP - General Family Medicine 03/17/22 Erika May, GINGER FARMER.CAR REPAIRMAN [address] [place] [address] Specialty Chemical Laboratory Technician Neurology 09/07/22 Tatiana Rodas APRN.CAR REPAIRMAN [address] [place] [address] Specialty Chemical Laboratory Technician Neurology 12/05/22 Team Status: Inactive Member Role [...] Provider, Referr ing Provider Active Christel Bae PROFESSIONAL SYSTEM ADMINISTRATOR PROFESSIONAL SYSTEM ADMINISTRATORLeroy Attending Provider Active Team Status: Inactive Member [...] April 09, 2025 End: April 09, 2025 Dryland Farmer Relationship Specialty Start Date End Date Ron Cooley MD [address] [facility] [address] [place] [id number] PCP - General Family Medicine 04/13/25 Team [...] BE BASED ON THE PRIMARY CLINICAL RECORDS. [employer] [facility]. provides no warranty or guarantee of the accuracy or completeness of information in this document.
[2025-06-08 21:41] VITALS: BP 120/76; PULSE 81; RESP 16; TEMP 36.7; O2SAT 94
--- NOTE | 2025-06-08 21:49 | ECHOCS_ITS ---
Reason For Study Reason For Study: Syncope Procedure This was a 2D Doppler, Color Flow transthoracic echocardiogram. The study was technically difficult. Contrast injection was performed. Exam performed portable in patient room. Left Ventricle Normal LV size. Left ventricular systolic function is normal. The left ventricular ejection fraction is 55 %. Stage 1 diastolic dysfunction. No regional wall motion abnormalities noted. Right Ventricle Normal RV size. Normal systolic function. Atria The left atrium is mildly enlarged. Normal right atrium. Mitral Valve Normal mitral valve. Tricuspid Valve Normal tricuspid valve. Aortic Valve Trisinus/trileaflet aortic valve. Mild focal aortic valve calcification. Pulmonic Valve Normal pulmonic valve. Great Vessels Normal aortic root. The pulmonary artery is normal size. Inferior vena cava collapse with respiration. Pericardium/Pleural No pericardial effusion. Medication Diluted definity 2ml given slow IV push to enhance endocardial definition. MMode/2D Measurements & Calculations LVIDd: 5.3 cm IVSd: 1.2 cm Ao root diam: 3.1 cm LVIDs: 3.3 cm LVPWd: 1.0 cm RVDd: 4.0 cm FS: 37.6 % LAV(MOD-bp): 61.1 ml LVAd ap4: 37.5 cm2 SV(MOD-sp4): 71.0 ml LAV(MOD-bp) Indexed: 26.6 ml/m2 LVLd ap4: 8.2 cm SI(MOD-sp4): 31.0 ml/m2 LAV(MOD-sp2): 45.4 ml EDV(MOD-sp4): 138.0 ml LAV(MOD-sp4): 62.4 ml EDV(sp4-el): 145.6 ml LVAs ap4: 24.1 cm2 LVLs ap4: 7.1 cm ESV(MOD-sp4): 66.9 ml ESV(sp4-el): 69.1 ml EF(MOD-sp4): 51.5 % EF(sp4-el): 52.6 % SV(sp4-el): 76.5 ml LA A4 area: 22.6 cm2 LA dimension(2D): 4.0 cm RA A4 area: 14.4 cm2 Time Measurements MV dec time: 0.23 sec Doppler Measurements & Calculations MV E max delfin: 89.6 cm/sec Lat Peak E' Delfin: 11.8 cm/sec Med Peak E' Delfin: 9.5 cm/sec MV A max delfin: 118.8 cm/sec E/E' lat: 7.6 E/E' med: 9.5 MV E/A: 0.75 MV V2 max: 143.0 cm/sec MV P1/2t max delfin: 111.3 cm/sec Ao V2 max: 140.8 cm/sec MV max P.2 mmHg MV P1/2t: 82.9 msec Ao max P.9 mmHg MV V2 mean: 80.1 cm/sec MV dec slope: 393.2 cm/sec2 Ao V2 mean: 94.9 cm/sec MV mean P.0 mmHg MVA(P1/2t): 2.7 cm2 Ao mean P.1 mmHg MV V2 VTI: 36.3 cm Ao V2 VTI: 35.5 cm AV (velocity ratio): 0.72 LV V1 max: 104.6 cm/sec PA V2 max: 95.5 cm/sec LV V1 max P.4 mmHg LV V1 mean P.2 mmHg LV V1 mean: 68.5 cm/sec LV V1 VTI: 25.4 cm ECHO/Echo Complete W/ Contrast Interpretation Summary Normal LV size. Left ventricular systolic function is normal. The left ventricular ejection fraction is 55 %. Stage 1 diastolic dysfunction. Contrast injection was performed. Ordering Physician: Geo Garza Performed By: Tex Cruz RCS
--- NOTE | 2025-06-08 21:49 | CDU_ITS ---
Reason For Study Reason For Study: Syncope and Collapse Rt. Velocities/BP Lt. Velocities/BP Prox CCA 85/15 cm/sec. Prox CCA 88/11 cm/sec. Mid CCA 62/11 cm/sec. Mid CCA 92/13 cm/sec. Dist CCA 54/8 cm/sec. Dist CCA 93/8 cm/sec. Prox ICA 64/11 cm/sec. Prox ICA 68/19 cm/sec. Mid ICA 74/13 cm/sec. Mid ICA 81/25 cm/sec. Dist ICA 81/21 cm/sec. Dist ICA 72/17 cm/sec. Rt. ICA/CCA = 1.3. Lt. ICA/CCA = 0.9. Prox ECA 75/5 cm/sec. Prox ECA 74/13 cm/sec. Rt. Vert. 37/5 cm/sec. Lt. Vert. 39/9 cm/sec. Right Extracranial There is heterogeneous, irregular atherosclerotic plaque noted in the right common carotid artery. There is heterogeneous, irregular atherosclerotic plaque noted in the right internal carotid artery. There is intimal thickening but no significant atherosclerotic plaque noted in the right external carotid artery. Antegrade flow is noted in the right vertebral artery. Left Extracranial There is heterogeneous, irregular atherosclerotic plaque noted in the left common carotid artery. There is heterogeneous, irregular atherosclerotic plaque noted in the left internal carotid artery. There is intimal thickening but no significant atherosclerotic plaque noted in the left external carotid artery. Antegrade flow is noted in the left vertebral artery. Procedure Carotid Duplex 85234. This is a Carotid Duplex examination using B-mode, color flow and specral Doppler. Exam performed portable in patient room. VL/Carotid Duplex Ultrasound Interpretation Summary Mild (<50%) stenosis right extracranial internal carotid. Mild (<50%) stenosis left extracranial internal carotid. Patent and antegrade vertebrals bilaterally. Ordering Physician: Geo Garza Referring Physician: Ja Cooley Performed By: Thuy Dong, GISELLA, RVT
[2025-06-08 21:52] LABS: Mucous, Urine 2+ /hpf (<or=2+); Red Blood Cells-Urine 0-5 SEEN /hpf (0-5); Squamous Epithelial Cells - UA 0-5 SEEN /hpf (0-5)
--- OUTSIDE RECORDS SUMMARY | 2025-06-08 22:19 | XMS RPT_ITS | CCD ---
Author Organization [facility] Inform ion Partnership [facility] Care Team Providers Care Patient Office Rep Name Role Phone Emigdio Crump (Historic) Primary Care Prov ider Patricia Mcgowan Primary Care Provider [phone] Unavailable Primary Care Provider Daniel Mcgowan MD, Patricia Ramon Primary Care Provider BARB MORTON Attending Unavailab le JOLLIFF, PATRICIA RAMON Primary Care Unavailable SELENEBARB TUBBS Referring Unavailab le SELENE, BARB MAS Attending Unavailab le JOLLIFF, PATRICIA TRISTEN Primary Care Unavailable SELENEBARB Admitting Unavailab le JOLLIFF, PATRICIA [facility] Primary Care Unavailable SELENE, BARB MAS Attending Unavailab le SELENEBARB Referring Unavailab le JOLLIFFPATRICIA Referring Unavailable SELENE, BARB MAS Admitting Unavailab le SELENE, BARB MAS Attending Unavailab le SELENEBARB Referring Unavailab le JOLLIFF, PATRICIA TRISTEN Primary Care Unavailable SELENEBARB Admitting Unavailab SARAH Peace Attending Unavailable SELENEBARB Admitting Unavailab HARPAL Brody Attending Unavailable JOLLRADHA, PATRICIA [facility] Primary Care Unavailable SELENE, BARB MAS Referring Unavailab le SELENE, BARB MAS Attending Unavailab le JOLLIFF, PATRICIA TRISTEN Primary Care Unavailable SELENEBARB Referring Unavailab le JOLLIFF, PATRICIA [facility] Primary Care Unavailable SELENE, BARB MAS Attending Unavailab le SELENE, BARB MAS Referring Unavailab le JOLLIFF, PATRICIA [facility] Primary Care Unavailable JASPREET QURESHI Attending Unavailable Ron Cooley [place] Primary Care Provider [phone] Dr. Patricia Mcgowan Referring Provider Dr. Vladimir Sears Attending Provider Dr. Ron Cooley Primary Care Provider [phone] Dr. Silverio Amin Attending Provider Ron Cooley [place] Primary Care Provider [phone] Ron Cooley erma Primary Care Provider Ron Cooley [place] Primary Care Provider [phone] Lalo SCALE MODEL MAKER.FRANCHISE MANAGER, Erika K Unavailable Ron Coolye [place] Primary Care Provider [phone] Lalo SCALE MODEL MAKER.FRANCHISE MANAGER, Erika K Unavailable SCALE MODEL MAKER.FRANCHISE MANAGER, Tatiana Unavailable PATRICIA MCGOWAN Primary Care Unavailable LIZBETH, JAYLYN Attending Unavailable LENI RUIZ Attending Unavailable LIZBETH, JAYLYN Referring Unavailable [facility] Primary Care Unavailabl e LIZBETH, JAYLYN Referring Unavailable ALEIDA RAMIREZ Attending Unavailable [facility] Primary Care Unavailabl e LIZBETH, JAYLYN Attending Unavailable [facility] Primary Care Unavailabl e LIZBETH, JAYLYN Attending Unavailable LIZBETH, JAYLYN Referring Unavailable [facility] Primary Care Unavailabl e [facility] Primary Care Unavailabl e MAINE MEDEL Attending Unavailable LIZBETH, JAYLYN Referring Unavailable [facility] Primary Care Unavailabl e KORI RYDER Attending Unavailable LIZBETH, JAYLYN Referring Unavailable [facility] Primary Care Unavailabl e KORI RYDER Attending Unavailable LIZBETH, JAYLYN Referring Unavailable LIZBETH, JAYLYN Referring Unavailable [facility] Primary Care Unavailabl e BEBB KORI Attending Unavailable BEKORI WEEKS Attending Unavailable LIZBETH, JAYLYN Referring Unavailable [facility] Primary Care Unavailabl e [facility] Primary Care Unavailabl e LIZBETH, JAYLYN Referring Unavailable [facility] Primary Care JAYLYN Gonsalves Referring Unavailable Dr. [...] Dr. Ron Deleon Primary Care Provider [phone] Colt GARZA, Dr. Kaur Attending Provider Chet [...] Jose Perez MD, V Attending Provider [phone] Dr. Jose Perez MD, V Referring Provider Dr. Vick Santo MD Referring Provider Surya Dumont MD Referring Provider Surya Dumont MD Emergency Provider Ron Cooley MD Primary Care Provider RON COOLEY Primary Care Unavailable Chetan POWELL Attending Unavailable Dr. Ron Cooley MD Primary Care Provider [phone] Dr. Ron Cooley MD Attending Provider Dr. Ron Cooley MD Referring Provider Chet GARZA, Dr. Hickman Attending Provider Surya Dumont MD Attending Provider Chet GARZA, Dr. Hickman Referring Provider Iván GARZA, Dr. Matson Emergency Provider Chet GARZA, Dr. Hickman Referring Provider Iván GARZA, Dr. Matson Attending Provider Lenora GARZA, Dr. Ron Deleon Primary Care Provider Lenora GARZA, Dr. Ron Deleon Referring Provider Lenora GARZA, Dr. Ron Deleon Attending Provider Colt GARZA, Dr. Kaur Referring Provider Whitley [...] Care Unavailable Schinner, Ron E Referring Unavailable Natasah Gregory Referring Unavailable Natasha Gregory Attending Unavailable Schinner, Ron E Primary Care Unavailable Schinner, Ron E Referring Unavailable Schinner, Rno E Attending Unavailable Schinner, Ron E Primary [...] Propensity to adverse reactions to substance 05-05-20 [facility] (12 sources) Metoclopramide; Translations: [METOCLOPRAMIDE HCL] Drug Allergy 10-05-20 [facility] (20 sources) Metoclopramide; Translations: [METOCLOPRAMIDE] Drug Allergy 08-25-20 Mental Status Change, Other [facility] Work Phone: Comment on above: anxiety (1 source) Metoclopramide Drug Allergy 05-11-20 [facility] Repository Medications Current Medications Medication Drug [...] HYDROcodone-acetaminophen (N ORCO) 5-325 MG per tablet [id number] 200 actuat albuterol 0.09 mg/actuat metered dose [...] take 1 puff(s) by inhalation once daily jndpaidxcck-vsqzlpnxq-aglicgol (Trelegy Ellipta) 100-62.5-25 mcg DsDv Inhale 1 puff daily . 0 Active Fluticasone-Umec lidin-Vilanter (20 sources) Sta rt: Tfgavxrtzui-Oiftgitsf-Becaty er (Trelegy Ellipta) 200-62.5-25 mcg blister with [...] on above: Take 2 tablets by [facility] three times daily. cephalexin 500 [...] Comment on above: Take 1 capsule by [facility] once daily. EPINEPHrine 0.01 mg/ml / lidocaine [...] famotidine (PEPCID) tablet 2 0 mg fluticasone wwhehvu-dfmjuczrjyxp-ntzbnvmbcn (TRELEGY ELLIPTA) 200-62.5-25 mcg powder inhaler (12 sources) take 1 puff(s) by inhalation once daily fluticasone mjfhawi-ndrdbghitvea-fphllcdbou (TRELEGY ELLIPTA) 200-62.5-25 mcg powder inhaler Inhale [...] sources) Anticholinergic Start: 04-06-2018 End: 04-11-2019 Ipratropium Kohler 0.03 % spray,non-aerosol Discontinued 2 NMA INTRANASAL 2 to 3 times per day as needed April 06, 2018 12:00am April 11, 2019 11:44am Start: 04-06-2018 End: 04-11-2019 Ipratropium Kohler Disconti nued 2 SPRAY INTRANASAL 2 to [...] 05-28-2025 Fol.,Hemolysate 498.0 ng/mL Normal Not Estab. [facility] Comment on above: Order Comment: LUPE Deleon SEND RESULTS OF B12 AND FOLATES TO Performed By: #### L 501.9985, L500.2500, L501.4405, L3100.1725, L503.0106, L501.4100 #### [facility] [address] [place], [place], [id number] Folate, RBC 1087 ng/mL Normal >498 [facility] Comment on above: Order Comment: LUPE Deleon SEND RESULTS OF B12 AND FOLATES TO Result Comment: Perf ormed at: - [address] [id number] Microbiology Manager: Vj Garcia PhD, Phone: [phone] Performed By: #### L 501.9985, L500.2500, L501.4405, L3100.1725, L503.0106, L501.4100 #### [facility] [address] [place], [place], [id number] Hematocrit (Bld) [Volume fraction] 45.8 % Normal 37.5-51.0 [facility] Comment on above: Order Comment: LUPE Deleon SEND RESULTS OF B12 AND FOLATES TO Performed By: #### L 501.9985, L500.2500, L501.4405, L3100.1725, L503.0106, L501.4100 #### [facility] [address] [place], [address] AST(SGOT)on 05-26-2025 AST [Catalytic activity/Vol] 14 U/L Normal <=37 [facility] Comment on above: Order Comment: LUPE Deleon SEND RESULTS OF B12 AND FOLATES TO Performed By: #### L 501.9985, L500.2500, L501.4405, L3100.1725, L503.0106, L501.4100 #### [facility] [address] [place], [address] Alanine Aminotransferas (SGP T)on 05-26-2025 ALT [Catalytic activity/Vol] 6 U/L Normal <=46 [facility] Comment on above: Order Comment: LUPE Deleon SEND RESULTS OF B12 AND FOLATES TO Performed By: #### L 501.9985, L500.2500, L501.4405, L3100.1725, L503.0106, L501.4100 #### [facility] [address] [place], [address] Anion gap in Serum or Plasma Ordered By: Natasha Gregory on 05-26-2025 Anion gap [Moles/Vol] 12 mmol/L - [facility] BUN/creatinine ratioOrdered By: Natasha Gregory on 05-26-2025 Urea nitrogen/Creatinine [Mass ratio] 19.8 mg/mg - [facility] Basic Metabolic Profile (BMP )on 05-26-2025 BUN/CRE 19.8 RATIO Normal 09-08 [facility] Comment on above: Order Comment: LUPE Deleon SEND RESULTS OF B12 AND FOLATES TO Performed By: #### L 501.9985, L500.2500, L501.4405, L3100.1725, L503.0106, L501.4100 #### [facility] [address] [place], [address] Calcium [Mass/Vol] 9.2 mg/dL Normal 7.6-11.0 [facility] Comment on above: Order Comment: LUPE Deleon SEND RESULTS OF B12 AND FOLATES TO Performed By: #### L 501.9985, L500.2500, L501.4405, L3100.1725, L503.0106, L501.4100 #### [facility] [address] [place], [address] Chloride [Moles/Vol] 104 mmol/L Normal 98-108 [place] Comment on above: Order Comment: LUPE Deleon SEND RESULTS OF B12 AND FOLATES TO Performed By: #### L 501.9985, L500.2500, L501.4405, L3100.1725, L503.0106, L501.4100 #### [facility] [address] [place], [address] CO2 [Moles/Vol] 25.8 mmol/L Normal 21.0-32.0 [facility] Comment on above: Order Comment: LUPE Deleon SEND RESULTS OF B12 AND FOLATES TO Performed By: #### L 501.9985, L500.2500, L501.4405, L3100.1725, L503.0106, L501.4100 #### [facility] [address] [place], [address] Creatinine [Mass/Vol] 0.91 mg/dL Normal 0.70-1.20 [facility] Comment on above: Order Comment: [facility] S[facility] RESULTS OF B12 AND FOLATES TO Performed By: #### L 501.9985, L500.2500, L501.4405, L3100.1725, L503.0106, L501.4100 #### [facility] [address] [place], [address] GAP 12 Normal 5-15 [facility] Comment on above: Order Comment: LUPE SEND RESULTS OF B12 AND FOLATES TO Performed By: #### L 501.9985, L500.2500, L501.4405, L3100.1725, L503.0106, L501.4100 #### [facility] [address] [place], [address] GFR/1.73 sq M.predicted among non-blacks MDRD (S/P/Bld) [Vol rate/Area] 86 mL/min/{1.73_m2} Normal >60 [facility] Comment on above: Order Comment: [facility] SEND RESULTS OF B12 AND FOLATES TO Result Comment: mL/m in/1.73m2 CKD-EPI Creatinine Equation (2020) Performed By: #### L 501.9985, L500.2500, L501.4405, L3100.1725, L503.0106, L501.4100 #### [facility] [address] [place], [address] Glucose [Mass/Vol] 52 mg/dL Low 70-99 [facility] Comment on above: Order Comment: LUPE Deleon SEND RESULTS OF B12 AND FOLATES TO Performed By: #### L 501.9985, L500.2500, L501.4405, L3100.1725, L503.0106, L501.4100 #### [facility] [address] [place], [address] Potassium [Moles/Vol] 3.9 mmol/L Normal 3.3-5.1 [facility] Comment on above: Order Comment: LUPE Deleon SEND RESULTS OF B12 AND FOLATES TO Performed By: #### L 501.9985, L500.2500, L501.4405, L3100.1725, L503.0106, L501.4100 #### [facility] [address] [place], [address] Sodium [Moles/Vol] 142 mmol/L Normal 133-145 [facility] Comment on above: Order Comment: LUPE SEND RESULTS OF B12 AND FOLATES TO Performed By: #### L 501.9985, L500.2500, L501.4405, L3100.1725, L503.0106, L501.4100 #### [facility] [address] [place], [address] Urea nitrogen [Mass/Vol] 18 mg/dL Normal 4-19 [facility] Comment on above: Order Comment: LUPE SEND RESULTS OF B12 AND FOLATES TO Performed By: #### L 501.9985, L500.2500, L501.4405, L3100.1725, L503.0106, L501.4100 #### [facility] [address] [place], [address] Carbon dioxide, total [Moles /volume] in Central venous bloodOrdered By: Natasha Gregory on 05-26-2025 CO2 [Moles/Vol] 25.8 mmol/L 21.0-32.0 [facility] Chloride assayOrdered By: Terri Gregory on 05-26-2025 Chloride [Moles/Vol] 104 mmol/L 98-108 [place] Erythrocyte folate measureme nt with hematocritOrdered By: Natasha Gregory on 05-26-2025 Hematocrit (Bld) [Volume fraction] 45.8 % 37.5-51.0 [facility] Glomerular filtration rate ( GFR) estimation/1.73 sq m using serum, plasma, or whole bOrdered By: Natasha Gregory on 05-26-2025 GFR/1.73 sq M.predicted among non-blacks MDRD (S/P/Bld) [Vol rate/Area] 86 mL/min/{1.73_m2} >60 [facility] Comment on above: mL/min/1.73m2 CKD-EP I Creatinine Equation (2020) Hemoglobin A1con 05-26-2025 HbA1c (Bld) [Mass fraction] 6.6 % High <=5.6 [facility] Comment on above: Order Comment: LUPE Deleon SEND RESULTS OF B12 AND FOLATES TO Result Comment: Norm al < 5.7 % Prediabetic 5.7 - 6.4 % Diabetic >or= 6.5 % Please note range changes. Performed By: #### L 501.9985, L500.2500, L501.4405, L3100.1725, L503.0106, L501.4100 #### [facility] [address] [place], [address] Hemoglobin A1c percentageOrd ered By: Natasha Gregory on 05-26-2025 HbA1c (Bld) [Mass fraction] 6.6 % High <5.7 [facility] Comment on above: Normal < 5.7 % Predi abetic 5.7 - 6.4 % Diabetic >or= 6.5 % Please note range changes. Laboratory - Chemistry and C hemistry - challengeOrdered By: Natasha Gregory on 05-26-2025 AST [Catalytic activity/Vol] 14 U/L <38 [facility] Potassium measurement (mass/ volume)Ordered By: Natasha Gregory on 05-26-2025 Potassium (Unsp spec) [Mass/Vol] 3.9 mmol/L 3.3-5.1 [facility] Serum creatinine measurement (mass/volume)Ordered By: Natasha Gregory on 05-26-2025 Creatinine [Mass/Vol] 0.91 mg/dL 0.70-1.20 [facility] Serum glucose measurement (m ass/volume)Ordered By: Natasha Gregory on 05-26-2025 Glucose [Mass/Vol] 52 mg/dL Low 70-99 [facility] Serum or plasma alanine max otransferase (ALT) measurementOrdered By: Natasha Gregory on 05-26-2025 ALT [Catalytic activity/Vol] 6 U/L <47 [facility] Serum or plasma calcium walt urement (mass/volume)Ordered By: Natasha Gregory on 05-26-2025 Calcium [Mass/Vol] 9.2 mg/dL 7.6-11.0 [facility] Serum or plasma urea nitroge n measurement (mass/volume)Ordered By: Natasha Gregory on 05-26-2025 Urea nitrogen [Mass/Vol] 18 mg/dL 4-19 [facility] Sodium levelOrdered By: Josefina Gregory on 05-26-2025 Sodium [Moles/Vol] 142 mmol/L 133-145 [facility] Vitamin B12on 05-26-2025 Cobalamin (Vitamin B12) [Mass/Vol] 287 pg/mL Normal 180-914 [facility] Comment on above: Order Comment: LUPE Deleon SEND RESULTS OF B12 AND FOLATES TO Performed By: #### L 501.9985, L500.2500, L501.4405, L3100.1725, L503.0106, L501.4100 #### [facility] [address] [place], [place], [id number] Vitamin B12 ser/plasOrdered By: Natasha Gregory on 05-26-2025 Cobalamin (Vitamin B12) [Mass/Vol] 287 pg/mL 180-914 [facility] D/C Summary- SPon 05-19-2025 D/C Summary- SP [facility] Speech Pathology [facility] [place] [address] / REHABILITATION SERVICES DISCHARGE SUMMARY MR#: [id number] Acct: [id number] Name: KEVIN GRIFFITH Rep #: [id number] : 1945 79 From: Ayden Linares M.A., [facility] Referring Dr.: Dr. Vick Santo MD Status: REG RCR Insurance: MEDICARE PART A B [place] Discharge Summary Discharged: Discharge: Kevin Griffith is discharged from [facility] as of 05/14/25 as he requested [...] Supervision: Assist as needed ( informed the [employer]ATE OF CHIR[employer]RA[employer] that supervision at each meal is not possible, [employer] recommends supervision as much as able to cue use of safe swallow strategies). On his last visit he requested to discontinue therapy at [facility] as he stated he has too many appointments and will consider getting therapy at his assisted living. Please see daily notes and reports for complete details. Thank you for allowing me to participate in the care of this patient. 05/19/25 4188 CC: Dr. Ron Cooley MD; Dr. Vick Santo MD JLM Signed Normal [facility] Bedside Glucoseon 05-11-2025 [place] GLU 97 mg/dL Normal 74-106 [facility] Comment on above: Result Comment: GARY REYSE OF PATIENT CARE PER NURSING PROTOCOL Performed By: #### L 501.9964, L500.2500, L501.4405, L3100.1725, L503.0106, L501.4100 #### [facility] [address] [place], [address] Emergency Department Summary on 05-11-2025 Emergency Department Summary [facility] Medical Records Department [address] [place] [address] Emergency Department Summary 05/11/25 MR#: [id number] Acct: [id number] Name: KEVIN GRIFFITH Rep #: [id number] : 1945 79 From: Dano Minor MD [...] Narrative: BMI (more content not included)... Normal [facility] Glucose measurement at [facility] deOrdered By: Dano Minor on 05-11-2025 Glucose [Mass/Vol] 97 mg/dL 74-106 [facility] Comment on above: MANAGEMENT OF PATIEN T CARE PER NURSING PROTOCOL Modified Barium Swallow Stud yon 05-09-2025 Modified Barium Swallow Study [facility] Speech Pathology [address] [place] [address] Modified Barium Swallow Study MR#: [id number] Acct: [id number] Name: KEVIN GRIFFITH Rep #: [id number] : 1945 79 From: Heather Titus M.A., [facility] Modified Barium Swallow Patient Information Study Date: 05/09/25 Study Time: 13:05 Direct Billable Minutes: 120 Total Minutes procedure reportin Diagnosis: Dysphagia R13.10 Referring Physician: Vick Santo Reason for Referral: The patient presents for repeat MBSS recommended by his OP [employer]. Patient and report coughing w/ food and [...] cup: Result: 2= enter airway/above vocal folds/ejected [place] Thick Liquid via large single sip: cup: [...] small single (more content not included)... Normal [facility] Microalb:Creat Ratio,Random URon 05-08-2025 MALB:CREAT 8.8 mg/g CRE [facility] Comment on above: Result Comment: AMENDED REPORT 05/08/25 0851 MALB:CREAT previously reported as: 87.7 mg/g CRE Performed By: #### L 501.4100, L500.2500, L501.4405, L501.9985, L502.0250 ####[facility] [id number] [place], [address] CT MAXILLOFACIAL WO IV CONTR Princess 04-13-2025 CT MAXILLOFACIAL WO IV CONTRAST [facility] Name[facility] 1945 [id number] Exam Date/Time: 04/13/2025 21:07 Procedure: CT MAXILLOFACIAL [...] to forehead above left eye Normal [facility] 1. Bilateral nasal bone fractures. 2. Left frontal scalp laceration with contusion. Report Dictated on Electronically Signed By: Maine Briones MD Electronically Signed Date/Time: 04/13/2025 9:21 PM EDT [facility] Patient Name: KEVIN GRIFFITH : 1945 [...] airway is patent. The epiglottis is normal. [facility] Maine Briones MD - 04/13/2025 Patient [...] Electronically Signed Date/Time: 04/13/2025 9:21 PM EDT [facility] Radiology Study observation (narrative) [facility] CT Maxillofacial region WO c ontrastOrdered By: Maine Briones on 04-13-[address] [facility]oma Work Phone: ED Nursing Noteon 04-13-2025 ED Nursing Note Pt presents to ED vi a EMS from restaurant for c/o left frontal head lac after losing footing and falling onto face on the ground. Pt has hx of parkinson's. Abrasion noted to forehead, small lac noted to bridge of nose as well as a large lac to forehead above left eye Normal [facility] ED Provider Noteon ED Provider Note [...] records from: PDMP demonstrating 1 prescription, for [place] CT demonstrating bilateral nasal bone fractures. The [...] initial encounter Medications lidocaine-EPINEPHrine (Xylocaine W/EPI) 1 %-1:[id number] injection 10 mL (has no administration in [...] Consent obtained: Verbal Consent given by: Patient [place] protocol: Imaging studies available: yes Patient identi (more content not included)... [facility] No Panel Informationon 04-13 Chetan Powell MD 04/13/2025 10:22 PM Laceration Repair Performed by: Chetan Powell MD Authorized by: Chetan Powell MD Consent: Consent obtained: Verbal Consent given by: Patient [place] protocol: Imaging studies available: yes Patient identity [...] Dressing: Open (no dressing) Procedure completion: Tolerated [facility] Brain/Head without Contrasto n 04-09-2025 Brain/Head without Contrast [facility] Imaging Services [address] [place], [place] [address] Brain/Head without Contrast MR#: [id number] Acct: [id number] Name: KEVIN GRIFFITH Rep #: [id number] : 1945 M 79 From: Donnell Corey MD PCP: Dr. Ron Cooley MD Status: REG ER Study: Brain/Head without Contrast Date of Exam: 03/21 12/14 Exam# [id number] Ordering Dr: Surya Dumont MD EXAM: CT [...] change from the prior exam. Reading Location: [facility] CC: Dr. Surya Dumont MD; Dr. 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 Tetanus Immunization: <5 years [facility] Medical History Parkinson's disease Right bundle branch [...] Medical decis (more content not included)... Normal [facility] Spine Cervical without Contr ason 04-09-2025 Spine Cervical without Contras [facility] Imaging Services [address] [place], [place] [id number] Spine Cervical without Contras MR#: [id number] Acct: [id number] Name: KEVIN GRIFFITH Rep #: [id number] : 1945 M 79 From: Donnell Corey MD PCP: Dr. Ron Cooley MD Status: REG ER Study: Spine Cervical without Contras Date of Exam: 0 04/09/25 Exam# [id number] Ordering Dr: Surya Dumont MD EXAM: CT [...] the cervical spine as described. Reading Location: [facility] CC: Dr. Surya Dumont MD; Dr. 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 Normal [facility] Anion gap in Serum or Plasma Ordered By: Ron Cooley on 04-03-2025 Anion gap [Moles/Vol] 11 mmol/L 04-03 [facility] BUN/creatinine ratioOrdered By: Ron Cooley on 04-03-2025 Urea nitrogen/Creatinine [Mass ratio] 20.8 mg/mg High 10- [facility] Bilirubin, totalOrdered By: Ron Cooley on 04-03-2025 Bilirubin [Mass/Vol] 0.52 mg/dL 0.00-1.30 [place] Calculated very low density lipoprotein (VLDL) cholesterol measurementOrdered By: Ron Cooley on 04-03-2025 Calculated very low density lipoprotein (VLDL) cholesterol measurement 27 mg/dL 5-40 [facility] Carbon dioxide, total [Moles /volume] in Central venous bloodOrdered By: Ron Cooley on 04-03-2025 CO2 [Moles/Vol] 26.4 mmol/L 21.0-32.0 [facility] Chloride assayOrdered By: Rimma Cooley on 04-03-2025 Chloride [Moles/Vol] 104 mmol/L 98-108 [place] Comprehensive Metabolic Prof ilon 04-03-2025 Albumin [Mass/Vol] 3.9 g/dL Normal 3.4-4.8 [facility] [facility] Comment on above: Order Comment: Order Date: 03/13/25 Order Info: 0786-1 - CMP Order Info: [id number] - LIPID Performed By: #### L 500.4050 #### [facility] [address] [place], [place] [address]all [facility] [place], [address] Albumin/Globulin [Mass ratio] 1.4 {ratio} Normal 0.9-2.4 [facility] Comment on above: Order Comment: Order Date: 03/13/25 Order Info: [id number] - CMP Order Info: [id number] - LIPID Performed By: #### L 500.4050 #### [facility] [address] [place], [address] ALK PHOS 79 U/L Normal 40-129 [facility] Comment on above: Order Comment: Order Date: 03/13/25 Order Info: 0786-1 - CMP Order Info: [id number] - LIPID Performed By: #### L 500.4050 #### [facility] [address] [place], [address] ALT [Catalytic activity/Vol] 5 U/L Normal <=46 [facility] Comment on above: Order Comment: Order Date: 03/13/25 Order Info: 0786-1 - CMP Order Info: [id number] - LIPID Performed By: #### L 500.4050 #### [facility] [address] [place], [address] AST [Catalytic activity/Vol] 17 U/L Normal <=37 [facility] Comment on above: Order Comment: Order Date: 03/13/25 Order Info: 0786-1 - CMP Order Info: [id number] - LIPID Performed By: #### L 500.4050 #### [facility] [address] [place], [address] Bilirubin [Mass/Vol] 0.52 mg/dL Normal 0.00-1.30 [place] Comment on above: Order Comment: Order Date: 03/13/25 Order Info: 0786-1 - CMP Order Info: [id number] - LIPID Performed By: #### L 500.4050 #### [facility] [address] [place], [address] BUN/CRE 20.8 RATIO High 10-20 [facility] Comment on above: Order Comment: Order Date: 03/13/25 Order Info: 0786-1 - CMP Order Info: [id number] - LIPID Performed By: #### L 500.4050 #### [facility] [address] [place], [address] Calcium [Mass/Vol] 9.2 mg/dL Normal 7.6-11.0 [facility] Comment on above: Order Comment: Order Date: 03/13/25 Order Info: 0786-1 - CMP Order Info: [id number] - LIPID Performed By: #### L 500.4050 #### [facility] [address] [place], [address] Chloride [Moles/Vol] 104 mmol/L Normal 98-108 [place] Comment on above: Order Comment: Order Date: 03/13/25 Order Info: 0786-1 - CMP Order Info: [id number] - LIPID Performed By: #### L 500.4050 #### [facility] [address] [place], [address] CO2 [Moles/Vol] 26.4 mmol/L Normal 21.0-32.0 [facility] Comment on above: Order Comment: Order Date: 03/13/25 Order Info: 0786-1 - CMP Order Info: [id number] - LIPID Performed By: #### L 500.4050 #### [facility] [address] [place], [address] Creatinine [Mass/Vol] 0.78 mg/dL Normal 0.70-1.20 [facility] Comment on above: Order Comment: Order Date: 03/13/25 Order Info: 0786-1 - CMP Order Info: [id number] - LIPID Performed By: #### L 500.4050 #### [facility] [address] [place], [address] GAP 11 Normal 5-15 [facility] Comment on above: Order Comment: Order Date: 03/13/25 Order Info: 0786-1 - CMP Order Info: [id number] - LIPID Performed By: #### L 500.4050 #### [facility] [address] [place], [place], [address] GFR/1.73 sq M.predicted among non-blacks MDRD (S/P/Bld) [Vol rate/Area] 90 mL/min/{1.73_m2} Normal >60 [facility] Comment on above: Order Comment: Order Date: 03/13/25 Order Info: 0786-1 - CMP Order Info: [id number] - LIPID Result Comment: mL/m in/1.73m2 CKD-EPI Creatinine Equation (2020) Performed By: #### L 500.4050 #### [facility] [address] [place], [address] Globulin (S) [Mass/Vol] 2.8 g/dL Normal 2.2-4.2 [facility] Comment on above: Order Comment: Order Date: 03/13/25 Order Info: 0786-1 - CMP Order Info: [id number] - LIPID Performed By: #### L 500.4050 #### [facility] [address] [place], [address] Glucose [Mass/Vol] 109 mg/dL High 70-99 [facility] Comment on above: Order Comment: Order Date: 03/13/25 Order Info: 0786-1 - CMP Order Info: [id number] - LIPID Performed By: #### L 500.4050 #### [facility] [address] [place], [address] Potassium [Moles/Vol] 3.9 mmol/L Normal 3.3-5.1 [facility] Comment on above: Order Comment: Order Date: 03/13/25 Order Info: 0786-1 - CMP Order Info: [id number] - LIPID Performed By: #### L 500.4050 #### [facility] [address] [place], [address] Sodium [Moles/Vol] 142 mmol/L Normal 133-145 [facility] Comment on above: Order Comment: Order Date: 03/13/25 Order Info: 0786-1 - CMP Order Info: [id number] - LIPID Performed By: #### L 500.4050 #### [facility] [address] [place], [place], [address] T PROT 6.6 g/dL Normal 5.9-8.4 [facility] Comment on above: Order Comment: Order Date: 03/13/25 Order Info: 0786-1 - CMP Order Info: [id number] - LIPID Performed By: #### L 500.4050 #### [facility] [address] [place], [place], [address] Urea nitrogen [Mass/Vol] 16 mg/dL Normal 4-19 [facility] Comment on above: Order Comment: Order Date: 03/13/25 Order Info: 0786-1 - CMP Order Info: [id number] - LIPID Performed By: #### L 500.4050 #### [facility] [address] [place], [place], [address] Glomerular filtration rate ( GFR) estimation/1.73 sq m using serum, plasma, or whole bOrdered By: Ron Cooley on 04-03-2025 GFR/1.73 sq M.predicted among non-blacks MDRD (S/P/Bld) [Vol rate/Area] 90 mL/min/{1.73_m2} >60 [facility] Comment on above: mL/min/1.73m2 CKD-EP I Creatinine Equation (2020) LDL calc ser/plasOrdered By: Ron Cooley on 04-03-2025 Cholesterol in LDL [Mass/Vol] 47 mg/dL [facility] Comment on above: Rbxlmpteri=502-632 m g/dL & Higher Hfdj=571 mg/dL or greater Laboratory - Chemistry and C hemistry - challengeOrdered By: Ron Cooley on 04-03-2025 AST [Catalytic activity/Vol] 17 U/L <38 [facility] Lipid Profileon 04-03-2025 CHOL:HDL 2.63 Normal [facility] Comment on above: Order Comment: Order Date: 03/13/25Order Info: 07 - CMPOrder Info: [id number] - LIPID Performed By: #### L 500.4100 ####[facility] [address] [place], [place], [id number]) Cholesterol [Mass/Vol] 120 mg/dL Normal <=200 [facility] Comment on above: Order Comment: Order Date: 03/13/25Order Info: [id number] - CMPOrder Info: [id number] - LIPID Result Comment: Chol esterol level, Desirable <200 mg/dL Borderline high cholesterol 200-239 mg/dL High cholesterol >=240 mg/dL Recommendations of the NCEP Adult Treatment Panel for the following risk-cutoff thresholds for the [place] population. Performed By: #### L 500.4100 ####[facility] [address] [place], [place], [phone]) Cholesterol in HDL [Mass/Vol] 46 mg/dL Normal [facility] Comment on above: Order Comment: Order Date: 03/13/25Order Info: [id number] - CMPOrder Info: [id number] - LIPID Result Comment: Makayla onal Cholesterol Education Program (NCEP) guidelines: <40 mg/dL: Low HDL-cholesterol (major risk factor for CHD) >= 60 mg/dL: High HDL-cholesterol (negative risk factor for CHD) HDL-cholesterol is affected by a number of factors, e.g. smoking, exercise, hormones, sex and age. Performed By: #### L 500.4100 ####[facility] [address] [place], [place], [address]) Cholesterol in LDL [Mass/Vol] 47 mg/dL Normal [facility] Comment on above: Order Comment: Order Date: 03/13/25Order Info: 07 - CMPOrder Info: [id number] - LIPID Result Comment: Bord swkckk=763-174 mg/dL Higher Ojdn=692 mg/dL or greater Performed By: #### L 500.4100 ####[facility] [address] [place], [address] Cholesterol in VLDL [Mass/Vol] 27 mg/dL Normal 5-40 [facility] Comment on above: Order Comment: Order Date: 03/13/25Order Info: [id number] - CMPOrder Info: [id number] - LIPID Performed By: #### L 500.4100 ####[facility] [address] [place], [place], [address] Triglyceride [Mass/Vol] 135 mg/dL Normal [facility] Comment on above: Order Comment: Order Date: 03/13/25Order Info: [id number] - CMPOrder Info: [id number] - LIPID Result Comment: The drugs N-Acetylcysteine and Metamizole may falsely depress this assay. Normal range: <150 mg/dL Borderline High: 150-199 mg/dL High: 200-499 mg/dL Very High: >500 mg/dL Performed By: #### L 500.4100 ####[facility] [address] [place], [place], [address] Potassium measurement (mass/ volume)Ordered By: Ron Cooley on 04-03-2025 Potassium (Unsp spec) [Mass/Vol] 3.9 mmol/L 3.3-5.1 [facility] Screening total cholesterol/ high density lipoprotein (HDL) cholesterol ratioOrdered By: Ron Cooley on 04-03-2025 Cholesterol.total/Cholest gris in HDL [Mass ratio] 2.63 {ratio} [facility] Serum creatinine measurement (mass/volume)Ordered By: Ron Cooley on 04-03-2025 Creatinine [Mass/Vol] 0.78 mg/dL 0.70-1.20 [facility] Serum globulin measurementOr dered By: Ron Cooley on 04-03-2025 Globulin (S) [Mass/Vol] 2.8 g/dL 2.2-4.2 [facility] Serum glucose measurement (m ass/volume)Ordered By: Ron Cooley on 04-03-2025 Glucose [Mass/Vol] 109 mg/dL High 70-99 [facility] Serum or plasma alanine max otransferase (ALT) measurementOrdered By: Ron Cooley on 04-03-2025 ALT [Catalytic activity/Vol] 5 U/L <47 [facility] Serum or plasma albumin walt urement (mass/volume)Ordered By: Rno Cooley on 04-03-2025 Albumin [Mass/Vol] 3.9 g/dL 3.4-4.8 [facility] Serum or plasma albumin/glob ulin mass ratioOrdered By: Ron Cooley on 04-03-2025 Albumin/Globulin [Mass ratio] 1.4 {ratio} 0.9-2.4 [facility] Serum or plasma alkaline sarah sphatase measurementOrdered By: Ron Cooley on 04-03-2025 ALP [Catalytic activity/Vol] 79 U/L 40-129 [facility] Serum or plasma calcium walt urement (mass/volume)Ordered By: Ron Cooley on 04-03-2025 Calcium [Mass/Vol] 9.2 mg/dL 7.6-11.0 [facility] Serum or plasma cholesterol in HDL measurement (mass/volume)Ordered By: Ron Cooley on 04-03-2025 Cholesterol in HDL [Mass/Vol] 46 mg/dL >40 [facility] Comment on above: National Cholesterol Education Program (NCEP) guidelines:<40 mg/dL: Low HDL-cholesterol (major risk factor for CHD)>= 60 mg/dL: High HDL-cholesterol (negative risk factor for CHD)HDL-cholesterol is affected by a number of factors, e.g. smoking, exercise, hormones, sex and age. Serum or plasma cholesterol measurement (mass/volume)Ordered By: Ron Cooley on 04-03-2025 Cholesterol [Mass/Vol] 120 mg/dL <201 [facility] Comment on above: Cholesterol level, D esirable <200 mg/dLBorderline high cholesterol 200-239 mg/dLHigh cholesterol >=240 mg/dLRecommendations of the NCEP Adult Treatment Panel for the following risk-cutoff thresholds for the [place] population. Serum or plasma urea nitroge n measurement (mass/volume)Ordered By: Ron Cooley on 04-03-2025 Urea nitrogen [Mass/Vol] 16 mg/dL 4-19 [facility] Sodium levelOrdered By: Ron Cooley on 04-03-2025 Sodium [Moles/Vol] 142 mmol/L 133-145 [facility] Total proteinOrdered By: Kwabena Cooley on 04-03-2025 Protein [Mass/Vol] 6.6 g/dL 5.9-8.4 [facility] Triglycerides measurementOrd ered By: Ron Cooley on 04-03-2025 Triglyceride [Mass/Vol] 135 mg/dL <199 [facility] Comment on above: The drugs N-Acetylcy steine and Metamizole may falsely depress this assay. Normal range: <150 mg/dLBorderline High: 150-199 mg/dLHigh: 200-499 mg/dLVery High: >500 mg/dL Vitamin D,25 Hydroxyon 04-03 Vitamin D 25-OH 39.2 ng/mL Normal 30-100 [facility] Comment on above: Order Comment: LUPE Deleon SEND RESULTS OF B12 AND FOLATES TO Result Comment: Lisa min D Status Deficiency: <20 ng/mL (50nmol/L) Insufficiency: 20-30 ng/mL (50-75 nmol/L) Sufficiency: 30-100 ng/mL (75-250 nmol/L) Toxicity: >100 ng/mL (>250 nmol/L) Performed By: #### L 501.9985, L500.2500, L501.4405, L3100.1725, L503.0106, L501.4100 #### [facility] [address] [place], [address] Chest without Contraston Chest without Contrast [facility] Imaging Services [address] [place] [address] Chest without Contrast MR#: [id number] Acct: [id number] Name: KEVIN GRIFFITH Rep #: [id number] : 1945 M 79 From: Donnell Corey MD PCP: Dr. Ron Cooley MD Status: DEP CLI Study: Chest without Contrast Date of Exam: 03/24/25 Exam# [id number] Ordering Dr: Jose Perez MD EXAM: CT [...] scarring, greater on the left. Reading Location: [facility] CC: Dr. 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 Vick beltran MD Age/Sex: 79/M [place] [facility] [place] Status: Signed with Addenda ADDENDUM by Dr. Vick Santo MD on 05/01/25 at 1626 Addendum Addendum (05/01/2025): The patient is now on metformin. Vitamin B12 and folate levels will be checked (deficiencies of these medications may occur with long-term metformin use). 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 Normal [facility] Absolute lymphocyte countOrd ered By: Jose Perez on 04-14-2025 Lymphocytes Auto (Unsp spec) [#/Vol] 4.51 10*3/uL 0.83-4.51 [facility] Absolute neutrophil countOrd ered By: Jose Perez on 03-03-2025 Neutrophils (Bld) [#/Vol] 5.4 10*3/uL 2.0-7.7 [facility] Automated lymphocyte count a s percentage of total leukocytesOrdered By: Jose Perez on 03-03-2025 Lymphocytes/100 WBC Auto (Unsp spec) 39.8 % 19-41 [facility] Basophil percentageOrdered B y: Jose Perez on 03-03-2025 Basophils/100 WBC (Bld) 0.7 % 0-1 [facility] CBC W/Diff, Automatedon 02-18 Absolute Lymph 4.51 X10 3/uL Normal 0.83-4.51 [facility] Comment on above: Performed By: #### L 100.0100 ####[facility] [address] [facility] [address] Absolute Neut 5.4 X10 3/uL Normal 2.0-7.7 [facility] Comment on above: Performed By: #### L 100.0100 ####[facility] [address] [facility] [address] Basophils/100 WBC (Bld) 0.7 % Normal 0-1 [facility] Comment on above: Performed By: #### L 100.0100 ####[facility] [address] [place], [address] Eosinophils/100 WBC (Bld) 1.2 % Normal 0-5 [facility] Comment on above: Performed By: #### L 100.0100 ####[facility] [address] [facility] [address] Erythrocyte distribution width (RBC) [Ratio] 13.6 % Normal 11.6-14.6 [facility] Comment on above: Performed By: #### L 100.0100 ####[facility] [address] [place], [address] Hematocrit (Bld) [Volume fraction] 44.2 % Normal 40-54 [facility] Comment on above: Performed By: #### L 100.0100 ####[facility] [address] [place], [address] Hemoglobin (Bld) [Mass/Vol] 14.5 g/dL Normal 13.0-16.5 [facility] Comment on above: Performed By: #### L 100.0100 ####[facility] [address] [place], [address] IG% 0.500 Normal 0.0-0.9 [facility] Comment on above: Result Comment: IG% - Immature Granulocytes (promyelocytes, myelocytes and metamyelocytes) > 1% indicates that a LEFT SHIFT is Present. Performed By: #### L 100.0100 ####[facility] [address] [place], [address] Lymphocytes/100 WBC (Bld) 39.8 % Normal 19-41 [facility] Comment on above: Performed By: #### L 100.0100 ####[facility] [address] [place], [address] MCH (RBC) [Entitic mass] 30.3 pg Normal 27.0-32.0 [facility] Comment on above: Performed By: #### L 100.0100 ####[facility] [address] [place], [address] MCHC (RBC) [Mass/Vol] 32.8 g/dL Normal 32-36 [facility] Comment on above: Performed By: #### L 100.0100 ####[facility] [address] [place], [address] MCV (RBC) [Entitic vol] 92.3 fL Normal 80-94 [facility] Comment on above: Performed By: #### L 100.0100 ####[facility] [address] [place], [address] Monocytes/100 WBC (Bld) 9.8 % Normal 0-10 [facility] Comment on above: Performed By: #### L 100.0100 ####[facility] [address] [place], [address] Neutrophils/100 WBC (Bld) 48.0 % Normal 47-70 [facility] Comment on above: Performed By: #### L 100.0100 ####[facility] [address] [place], [address] Nucleated RBC (Bld) [#/Vol] 0 10*3/uL Normal 0-5 [facility] Comment on above: Performed By: #### L 100.0100 ####[facility] [address] [place], [address] Platelet mean volume (Bld) [Entitic vol] 10.5 fL Normal 6.2-12.0 [facility] Comment on above: Performed By: #### L 100.0100 ####[facility] [address] [place], [address] Platelets (Bld) [#/Vol] 339 10*3/uL Normal 150-450 [facility] Comment on above: Performed By: #### L 100.0100 ####[facility] [address] [place], [address] RBC (Bld) [#/Vol] 4.79 10*6/uL Normal 4.6-6.2 [facility] Comment on above: Performed By: #### L 100.0100 ####[facility] [address] [place], [address] RDW SD 46.1 fl High 35.1-43.9 [facility] Comment on above: Performed By: #### L 100.0100 ####[facility] [address] [place], [place], [address] WBC (Bld) [#/Vol] 11.3 10*3/uL High 4.4-11.0 [facility] Comment on above: Performed By: #### L 100.0100 ####[facility] [address] [place], [place], [address] Eosinophil percentageOrdered By: Jose Perez on 03-03-2025 Eosinophils/100 WBC (Bld) 1.2 % 0-5 [facility] Erythrocyte distribution wid th (RBC) [Ratio]Ordered By: Jose Perez on 03-03-2025 Erythrocyte distribution width (RBC) [Entitic vol] 46.1 fL High 35.1-43.9 [facility] Erythrocyte distribution wid th ratioOrdered By: [place] on 03-03-2025 Erythrocyte distribution width (RBC) [Ratio] 13.6 % 11.6-14.6 [facility] Erythrocyte distribution wid th standard deviationOrdered By: [place] on 03-03-2025 Erythrocyte distribution width (RBC) [Ratio] 46.1 fl High 35.1-43.9 [facility] Hematocrit Auto (Bld) [Volum e fraction]Ordered By: Jose Perez on 03-03-2025 Hematocrit (Bld) [Volume fraction] 44.2 % 40-54 [facility] Hemoglobin measurementOrdere d By: Jose Perez on 03-03-2025 Hemoglobin (Bld) [Mass/Vol] 14.5 g/dL 13.0-16.5 [facility] Immature granulocytes/100 WB C Auto (Bld)Ordered By: Jose Perez on 03-03-2025 Immature granulocytes/100 WBC (Bld) 0.500 % 0.0-0.9 [facility] Comment on above: IG% - Immature Granu locytes (promyelocytes, myelocytes and metamyelocytes) > 1% indicates that a LEFT SHIFT is Present. Lymphocytes Auto (Unsp spec) [#/Vol]Ordered By: Jose Perez on 03-03-2025 Lymphocytes (Bld) [#/Vol] 4.51 10*3/uL 0.83-4.5 1 [facility] Lymphocytes/100 WBC Auto (Un sp spec)Ordered By: Jose Perez on 03-03-2025 Lymphocytes/100 WBC (Bld) 39.8 % 19-41 [facility] MCV (mean corpuscular volume ) determinationOrdered By: Jose Perez on 03-03-2025 MCV (RBC) [Entitic vol] 92.3 fL 80-94 [facility] Mean corpuscular hemoglobin (MCH) determinationOrdered By: Jose Perez on 03-03-2025 MCH (RBC) [Entitic mass] 30.3 pg 27.0-32.0 [facility] Mean corpuscular hemoglobin concentration (MCHC) determinationOrdered By: Jose Perez on 03-03-2025 MCHC (RBC) [Mass/Vol] 32.8 g/dL 32-36 [facility] Mean platelet volume determi nationOrdered By: Jose Perez on 03-03-2025 Platelet mean volume (Bld) [Entitic vol] 10.5 fL 6.2-12.0 [facility] Monocyte percentageOrdered B y: Jose Perez on 03-03-2025 Monocytes/100 WBC (Bld) 9.8 % 0-10 [facility] Neutrophil percentageOrdered By: Jose Perez on 03-03-2025 Neutrophils/100 WBC (Bld) 48.0 % 47-70 [facility] Nucleated red blood cell per centageOrdered By: Jose Perez on 03-03-2025 Nucleated RBC/100 WBC (Bld) [Ratio] 0 % 0-5 [facility] Platelet countOrdered By: Jasmine Perez on 03-03-2025 Platelets (Bld) [#/Vol] 339 10*3/uL 150-450 [facility] RBC Auto (Bld) [#/Vol]Ordere d By: Jose Perez on 03-03-2025 RBC (Bld) [#/Vol] 4.79 10*6/uL 4.6-6.2 [facility] White blood cell (WBC) count Ordered By: Jose Perez on 03-03-2025 WBC (Bld) [#/Vol] 11.3 10*3/uL High 4.4-11.0 [facility] SP/HP.SP.[place] 02-26-2025 SP/HP.SP.EV [facility] Speech Pathology [facility] [address] [place] [address] / REHABILITATION SERVICES INITIAL EVALUATION MR#: [id number] Acct: [id number] Name: KEVIN GRIFFITH Rep #: [id number] : 1945 79 From: Ayden Linares M.A., [facility] Referring Dr.: Dr. Vick Santo MD Status: REG R Insurance: MEDICARE PART A B FOR LIFE Visit History Visit Info Date of Eval: 02/25/25 Visit: 1 [employer] Supervisor: SO History Attending Doctor: Referring Doctor: Reason [...] waiting list for an assisted living ( [place]) as he is exhibiting increased memory deficits [...] current prescribed condition?: No Personal Preferred language: Lebanese Patient Allergies Allergies Allergies: Allergies metoclopramide (From [...] 15:18 Speech Therapy by Ayden Linares [facility] Speech Pathology [address] [place] [address] Modified Barium Swallow Study MR#: [id number] Acct: [id number] Name: KEVIN GRIFFITH Rep #: [id number] : 1945 79 From: Chayito Barber Modified [...] airway 2 (more content not included)... Normal [facility] AST(SGOT)on 02-20-2025 AST [Catalytic activity/Vol] 13 U/L Normal <=37 [facility] Comment on above: Performed By: #### L 501.4100, L500.2500, L501.4405, L501.9985, L502.0250 ####[facility] [address] [place], [address] Alanine Aminotransferas (SGP T)on 02-20-2025 ALT [Catalytic activity/Vol] 7 U/L Normal <=46 [facility] Comment on above: Performed By: #### L 501.4100, L500.2500, L501.4405, L501.9985, L502.0250 ####[facility] [address] [place], [address] Albumin DL <= 20 mg/L (U) [M ass/Vol]Ordered By: Natasha Gregory on 02-20-2025 Urine Random Microalbumin 13.6 mg/L NO RANGE EST. [facility] Anion gap in Serum or Plasma Ordered By: Natasha Gregory on 02-20-2025 Anion gap [Moles/Vol] 13 mmol/L 5-15 [facility] BUN/creatinine ratioOrdered By: Natasha Gregory on 02-20-2025 Urea nitrogen/Creatinine [Mass ratio] 23.0 mg/mg High 10-20 [facility] Basic Metabolic Profile (BMP )on 02-20-2025 BUN/CRE 23.0 RATIO High - [facility] Comment on above: Performed By: #### L 501.4100, L500.2500, L501.4405, L501.9985, L502.0250 ####[facility] [address] [place], [address] Calcium [Mass/Vol] 9.0 mg/dL Normal 7.6-11.0 [facility] Comment on above: Performed By: #### L 501.4100, L500.2500, L501.4405, L501.9985, L502.0250 ####[facility] [address] [place], [address] Chloride [Moles/Vol] 102 mmol/L Normal 98-108 [place] Comment on above: Performed By: #### L 501.4100, L500.2500, L501.4405, L501.9985, L502.0250 ####[facility] [address] [place], [address] CO2 [Moles/Vol] 21.9 mmol/L Normal 21.0-32.0 [facility] Comment on above: Performed By: #### L 501.4100, L500.2500, L501.4405, L501.9985, L502.0250 ####[facility] [address] [place], [address] Creatinine [Mass/Vol] 0.83 mg/dL Normal 0.70-1.20 [facility] Comment on above: Performed By: #### L 501.4100, L500.2500, L501.4405, L501.9985, L502.0250 ####[facility] [address] [place], [address] GAP 13 Normal 5-15 [facility] Comment on above: Performed By: #### L 501.4100, L500.2500, L501.4405, L501.9985, L502.0250 ####[facility] [address] [place], [address] GFR/1.73 sq M.predicted among non-blacks MDRD (S/P/Bld) [Vol rate/Area] 89 mL/min/{1.73_m2} Normal >60 [facility] Comment on above: Result Comment: mL/m in/1.73m2 CKD-EPI Creatinine Equation (2020) Performed By: #### L 501.4100, L500.2500, L501.4405, L501.9985, L502.0250 ####[facility] [address] [place], [address] Glucose [Mass/Vol] 277 mg/dL High 70-99 [facility] Comment on above: Performed By: #### L 501.4100, L500.2500, L501.4405, L501.9985, L502.0250 ####[facility] [address] [place], [address] Potassium [Moles/Vol] 4.1 mmol/L Normal 3.3-5.1 [facility] Comment on above: Performed By: #### L 501.4100, L500.2500, L501.4405, L501.9985, L502.0250 ####[facility] [address] [place], [address] Sodium [Moles/Vol] 137 mmol/L Normal 133-145 [facility] Comment on above: Performed By: #### L 501.4100, L500.2500, L501.4405, L501.9985, L502.0250 ####[facility] [address] [place], [address] Urea nitrogen [Mass/Vol] 19 mg/dL Normal 4-19 [facility] Comment on above: Performed By: #### L 501.4100, L500.2500, L501.4405, L501.9985, L502.0250 ####[facility] [address] [place], [address] Carbon dioxide, total [Moles /volume] in Central venous bloodOrdered By: Natasha Gregory on 02-20-2025 CO2 [Moles/Vol] 21.9 mmol/L 21.0-32.0 [facility] Chloride assayOrdered By: Terri Gregory on 02-20-2025 Chloride [Moles/Vol] 102 mmol/L 98-108 [place] Creatinine Unsp time (U) [Ma ss/Vol]Ordered By: Natasha Gregory on 02-20-2025 Creatinine (U) [Mass/Vol] 155.00 mg/dL 39 .00-259.0 0 [facility] GFR/1.73 sq M.predicted krystal g non-blacks MDRD (S/P/Bld) [Vol rate/Area]Ordered By: Natasha Gregory on 02-20-2025 Estimated GFR (MDRD) Non-Af Amer 89 >60 [facility] Comment on above: mL/min/1.73m2 CKD-EP I Creatinine Equation (2020) Glomerular filtration rate ( GFR) estimation/1.73 sq m using serum, plasma, or whole bOrdered By: Natasha Gregory on 02-20-2025 GFR/1.73 sq M.predicted among non-blacks MDRD (S/P/Bld) [Vol rate/Area] 89 mL/min/{1.73_m2} >60 [facility] Comment on above: mL/min/1.73m2 CKD-EP I Creatinine Equation (2020) Hemoglobin A1con 02-20-2025 HbA1c (Bld) [Mass fraction] 7.1 % Normal <=5.6 [facility] Comment on above: Performed By: #### L 501.4100, L500.2500, L501.4405, L501.9985, L502.0250 ####[facility] [address] [place], [place], [address] Hemoglobin A1c percentageOrd ered By: Natasha Gregory on 02-20-2025 HbA1c (Bld) [Mass fraction] 7.1 % >5.7 [facility] - Chemistry and C hemistry - challengeOrdered By: Natasha Gregory on 02-20-2025 AST [Catalytic activity/Vol] 13 U/L <38 [facility] Microalbumin/creat ratio urO rdered By: Natasha Gregory on 02-20-2025 Urine Microalbumin/Creatinine Ratio 87.7 mg/g CRE [facility] Potassium (Unsp spec) [Mass/ Vol]Ordered By: Natasha Gregory on 02-20-2025 Potassium [Moles/Vol] 4.1 mmol/L 3.3-5.1 [facility] Potassium measurement (mass/ volume)Ordered By: Natasha Gregory on 02-20-2025 Potassium (Unsp spec) [Mass/Vol] 4.1 mmol/L 3.3-5.1 [facility] Random urine creatinine walt urement (mass/volume)Ordered By: Natasha Gregory on 02-20-2025 Creatinine Unsp time (U) [Mass/Vol] 155.00 mg/dL 39.00-259.0 0 [facility] Serum creatinine measurement (mass/volume)Ordered By: Natasha Gregory on 02-20-2025 Creatinine [Mass/Vol] 0.83 mg/dL 0.70-1.20 [facility] Serum glucose measurement (m ass/volume)Ordered By: Natasha Gregory on 02-20-2025 Glucose [Mass/Vol] 277 mg/dL High 70-99 [facility] Serum or plasma alanine max otransferase (ALT) measurementOrdered By: Natasha Gregory on 02-20-2025 ALT [Catalytic activity/Vol] 7 U/L <47 [facility] Serum or plasma calcium walt urement (mass/volume)Ordered By: Natasha Gregory on 02-20-2025 Calcium [Mass/Vol] 9.0 mg/dL 7.6-11.0 [facility] Serum or plasma urea nitroge n measurement (mass/volume)Ordered By: Natasha Gregory on 02-20-2025 Urea nitrogen [Mass/Vol] 19 mg/dL 4-19 [facility] Sodium levelOrdered By: Josefina Gregory on 02-20-2025 Sodium [Moles/Vol] 137 mmol/L 133-145 [facility] Urine albumin measurement wi th detection limit of 20 mg/L or less (mass/volume)Ordered By: Natasha Gregory on 02-20-2025 Albumin DL <= 20 mg/L (U) [Mass/Vol] 13.6 mg/L NO RANGE EST. [facility] Brain/Head without Contrasto n 02-14-2025 Brain/Head without Contrast [facility] Imaging Services [address] [place], [place] [address] Brain/Head without Contrast MR#: [id number] Acct: [id number] Name: KEVIN GRIFFITH Rep #: [id number] : 1945 M 79 From: Tatiana Guadalupe nd, MD PCP: Dr. Ron Cooley MD Status: REG ER Study: Brain/Head without Contrast Date of Exam: 01/19 07/14 Exam# [id number] Ordering Dr: Joe Soto DO EXAM: BRAIN/HEAD [...] ischemic change and age-related change. Reading Location: [id number] CC: Dr. Ron Cooley MD; Dr. 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 Normal [facility] Spine Cervical without Contr ason 02-14-2025 Spine Cervical without Contras [facility] Imaging Services [address] [place] [address] Spine Cervical without Contras MR#: [id number] Acct: [id number] Name: KEVIN GRIFFITH Rep #: [id number] : 1945 M 79 From: Tatiana Guadalupe nd, MD PCP: Dr. Ron Cooley MD Status: REG ER Study: Spine Cervical without Contras Date of Exam: 0 02/14/25 Exam# [id number] Ordering Dr: Joe Soto DO PROCEDURE: SPINE [...] ACUTE CERVICAL FRACTURE. DEGENERATIVE CHANGES. Reading Location: [id number] CC: Dr. Ron Cooley MD; Dr. 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 Vick beltran MD Age/Sex: 79/M [place] [facility] 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 Normal [facility] Chest PA and Lateralon 01-21 Chest PA and Lateral [facility] Imaging Services [address] [place], [place] [address] Chest PA and Lateral MR#: [id number] Acct: [id number] Name: KEVIN GRIFFITH Rep #: [id number] : 1945 M 79 From: Donnell Corey MD PCP: Dr. Ron Cooley MD Status: REG CLI Study: Chest PA and Lateral Date of Exam: 01/21/25 Exam# [id number] Ordering Dr: Ron Cooley MD EXAM: XR Chest, 2 Views CLINICAL INDICATION: TECHNIQUE: Frontal and lateral views of the chest. COMPARISON: No relevant prior studies available. FINDINGS: LUNGS AND PLEURAL SPACES: Unremarkable. No consolidation. No pneumothorax. HEART: Unremarkable. No cardiomegaly. MEDIASTINUM: Unremarkable. Normal mediastinal contour. BONES/JOINTS: Unremarkable. No acute fracture. RAD/Chest PA and Lateral IMPRESSION: No acute cardiopulmonary process. Reading [facility] CC: Dr. 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 Normal [facility] Microalb:Creat Ratio,Random URon 12-10-2024 Creatinine [Mass/Vol] 104.00 mg/dL Normal NO RAN GE EST. [facility] Comment on above: Order Comment: [facility] SEND RESULTS OF B12 AND FOLATES TO Performed By: #### L 501.9985, L500.2500, L501.4405, L3100.1725, L503.0106, L501.4100 #### [facility] [address] [place], [address] MALB:CRE 17.0 mg/g CRE Normal <30 mg/g CRE [facility] Comment on above: Order Comment: [facility] SEND RESULTS OF B12 AND FOLATES TO Performed By: #### L 501.9985, L500.2500, L501.4405, L3100.1725, L503.0106, L501.4100 #### [facility] [address] [place], [place], [address] MICROALBUMIN,UR 17.7 mg/L Normal NO RANGE EST. [facility] Comment on above: Order Comment: [facility] SEND RESULTS OF B12 AND FOLATES TO Performed By: #### L 501.9985, L500.2500, L501.4405, L3100.1725, L503.0106, L501.4100 #### [facility] [address] [place], [place], [address] Neurology Visit Reporton Neurology Visit Report [facility] [address], [address] [place], [place] [address] OFFICE VISIT Date of Service: 12/10/24 MR#: [id number] Acct: [id number] Name: KEVIN GRIFFITH Rep #: [id number] : 1945 Provider: Dr. Vick beltran MD Age/Sex: 79/M Location[place] [facility] [place] Status: Signed with Addenda ADDENDUM by Dr. 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 Normal [facility] Random urine microalbumin me asurementOrdered By: oRn Cooley on 12-10-2024 Urine Random Microalbumin 17.7 mg/L NO RANGE EST. [facility] Urine albumin/creatinine rat io for detection of microalbuminuriaOrdered By: Ron Cooley on 12-10-2024 Urine Microalbumin/Creatinine Ratio 17.0 mg/g CRE <30 [facility] Urine creatinine measurement (mass/volume)Ordered By: Ron Cooley on 12-10-2024 Creatinine (U) [Mass/Vol] 104.00 mg/dL NO RANGE EST. [facility] Brain/Head without Contrasto n 12-05-2024 Brain/Head without Contrast [facility] Imaging Services [address] [place], [place] [address] Brain/Head without Contrast MR#: [id number] Acct: [id number] Name: KEVIN GRIFFTIH Rep #: [id number] : 1945 M 79 From: Siva Horton DO PCP: Dr. Ron Cooley MD Status: PRE ER Study: Brain/Head without Contrast Date of Exam: 11/20 05/14 Exam# [id number] Ordering Dr: [place] [id number] STUDY: CT BRAIN WITHOUT CONTRAST REASON FOR [...] Ron Cooley MD; Dr. Estuardo Mccormack DO Border Patrol Agent: Signed Normal [facility] Emergency Department Summary on 12-05-2024 Emergency Department Summary [facility] Medical Records Department [address] [place] [address] Emergency Department Summary 12/05/24 MR#: [id number] Acct: [id number] Name: KEVIN GRIFFITH Rep #: [id number] : 1945 79 From: Estuardo Mccormack DO PCP: Dr. Ron Cooley MD Status:DEP ER Location: ED HPI HPI - Fall History of Present Illness Chief Complaint: [facility] Medical History Parkinson's disease Right bundle [...] raccoon e (more content not included)... Normal [facility] Spine Cervical without Contr ason 12-05-2024 Spine Cervical without Contras [facility] Imaging Services [address] [place], [place] [address] Spine Cervical without Contras MR#: [id number] Acct: [id number] Name: KEVIN GRIFFITH Rep #: [id number] : 1945 M 79 From: Siva Horton DO PCP: Dr. Ron Cooley MD Status: REG ER Study: Spine Cervical without Contras Date of Exam: 0 12/05/24 Exam# [id number] Ordering Dr: [place] [id number] STUDY: CT CERVICAL SPINE WITHOUT CONTRAST REASON [...] 18:32 EST Reading Location ID and State: [facility] / [place] Tel [phone], Service support , CC: Dr. Ron Cooley MD; Dr. Estuardo Mccormack DO Border Patrol Agent: Signed Normal [facility] [id number] DOrdered By: Chetan Cooley on 12-04-2024 Vitamin D 25-Hydroxy 47.5 ng/mL [place] Comment on above: Vitamin D 25(OH) Sta tus Range Deficiency <20 ng/mL (50nmol/L) Insufficiency 20 - 30 ng/mL (50 - 75 nmol/L) Sufficiency 30 - 100 ng/mL (75 - 250 nmol/L) Toxicity >100 ng/mL (>250 nmol/L) Absolute lymphocyte countOrd ered By: Ron Cooley on 12-04-2024 Lymphocytes Auto (Unsp spec) [#/Vol] 3.42 10*3/uL 0.83-4.51 [facility] Absolute neutrophil countOrd ered By: Ron Cooley on 12-04-2024 Neutrophils (Bld) [#/Vol] 5.9 10*3/uL 2.0-7.7 [facility] Albumin to globulin ratioOrd ered By: Ron Cooley on 12-04-2024 Albumin/Globulin [Mass ratio] 1.0 {ratio} 0.9-2.4 [facility] Automated lymphocyte count a s percentage of total leukocytesOrdered By: Ron Cooley on 12-04-2024 Lymphocytes/100 WBC Auto (Unsp spec) 31.5 % - [facility] Basophil percentageOrdered B y: Ron Cooley on 12-04-2024 Basophils/100 WBC (Bld) 1.2 % High 0-1 [facility] Bilirubin, totalOrdered By: Ron Cooley on 12-04-2024 Bilirubin [Mass/Vol] 0.80 mg/dL 0.20-1.00 [place] Comment on above: For patients on eltr ombopag therapy, use of Dimension [place] TBIL is not recommended. Blood urea nitrogen (BUN)/cr eatinine ratioOrdered By: Ron Cooley on 12-04-2024 Urea nitrogen/Creatinine [Mass ratio] 19.7 mg/mg 10-20 [facility] CBC W/Diff, Automatedon 11-20 Absolute Lymph 3.42 X10 3/uL Normal 0.83-4.51 [facility] Comment on above: Order Comment: Order Date: 12/04/24Order Info: 0184-1 - CBCD Performed By: #### L 501.9985, L501.5200, L500.4050, L100.0100, L500.4100, L506.1000 ####[facility] [address] [place], [address] Absolute Neut 5.9 X10 3/uL Normal 2.0-7.7 [facility] Comment on above: Order Comment: Order Date: 12/04/24Order Info: 0184-1 - CBCD Performed By: #### L 501.9985, L501.5200, L500.4050, L100.0100, L500.4100, L506.1000 ####[facility] [address] [place], [address] Basophils/100 WBC (Bld) 1.2 % High 0-1 [facility] Comment on above: Order Comment: Order Date: 12/04/24Order Info: 0184-1 - CBCD Performed By: #### L 501.9985, L501.5200, L500.4050, L100.0100, L500.4100, L506.1000 ####[facility] [address] [place], [address] Eosinophils/100 WBC (Bld) 1.8 % Normal 0-5 [facility] Comment on above: Order Comment: Order Date: 12/04/24Order Info: 0184-1 - CBCD Performed By: #### L 501.9985, L501.5200, L500.4050, L100.0100, L500.4100, L506.1000 ####[facility] [address] [place], [address] Erythrocyte distribution width (RBC) [Ratio] 13.4 % Normal 11.6-14.6 [facility] Comment on above: Order Comment: Order Date: 12/04/24Order Info: 0184-1 - CBCD Performed By: #### L 501.9985, L501.5200, L500.4050, L100.0100, L500.4100, L506.1000 ####[facility] [address] [place], [address] Hematocrit (Bld) [Volume fraction] 47.1 % Normal 40-54 [facility] Comment on above: Order Comment: Order Date: 12/04/24Order Info: 0184-1 - CBCD Performed By: #### L 501.9985, L501.5200, L500.4050, L100.0100, L500.4100, L506.1000 ####[facility] [address] [place], [address] Hemoglobin (Bld) [Mass/Vol] 15.4 g/dL Normal 13.0-16.5 [facility] Comment on above: Order Comment: Order Date: 12/04/24Order Info: 0184-1 - CBCD Performed By: #### L 501.9985, L501.5200, L500.4050, L100.0100, L500.4100, L506.1000 ####[facility] [address] [place], [address] IG% 0.600 Normal 0.0-0.9 [facility] Comment on above: Order Comment: Order Date: 12/04/24Order Info: 0184-1 - CBCD Result Comment: IG% - Immature Granulocytes (promyelocytes, myelocytes and metamyelocytes) > 1% indicates that a LEFT SHIFT is Present. Performed By: #### L 501.9985, L501.5200, L500.4050, L100.0100, L500.4100, L506.1000 ####[facility] [address] [place], [address] Lymphocytes/100 WBC (Bld) 31.5 % Normal 19-41 [facility] Comment on above: Order Comment: Order Date: 12/04/24Order Info: 0184-1 - CBCD Performed By: #### L 501.9985, L501.5200, L500.4050, L100.0100, L500.4100, L506.1000 ####[facility] [address] [place], [address] MCH (RBC) [Entitic mass] 30.4 pg Normal 27.0-32.0 [facility] Comment on above: Order Comment: Order Date: 12/04/24Order Info: 0184-1 - CBCD Performed By: #### L 501.9985, L501.5200, L500.4050, L100.0100, L500.4100, L506.1000 ####[facility] [address] [place], [address] MCHC (RBC) [Mass/Vol] 32.7 g/dL Normal 32-36 [facility] Comment on above: Order Comment: Order Date: 12/04/24Order Info: 0184-1 - CBCD Performed By: #### L 501.9985, L501.5200, L500.4050, L100.0100, L500.4100, L506.1000 ####[facility] [address] [place], [address] MCV (RBC) [Entitic vol] 92.9 fL Normal 80-94 [facility] Comment on above: Order Comment: Order Date: 12/04/24Order Info: 0184-1 - CBCD Performed By: #### L 501.9985, L501.5200, L500.4050, L100.0100, L500.4100, L506.1000 ####[facility] [address] [place], [address] Monocytes/100 WBC (Bld) 10.8 % High 0-10 [facility] Comment on above: Order Comment: Order Date: 12/04/24Order Info: 0184-1 - CBCD Performed By: #### L 501.9985, L501.5200, L500.4050, L100.0100, L500.4100, L506.1000 ####[facility] [address] [place], [address] Neutrophils/100 WBC (Bld) 54.1 % Normal 47-70 [facility] Comment on above: Order Comment: Order Date: 12/04/24Order Info: 0184-1 - CBCD Performed By: #### L 501.9985, L501.5200, L500.4050, L100.0100, L500.4100, L506.1000 ####[facility] [address] [place], [address] Nucleated RBC (Bld) [#/Vol] 0 10*3/uL Normal 0-5 [facility] Comment on above: Order Comment: Order Date: 12/04/24Order Info: 0184-1 - CBCD Performed By: #### L 501.9985, L501.5200, L500.4050, L100.0100, L500.4100, L506.1000 ####[facility] [address] [place], [address] Platelet mean volume (Bld) [Entitic vol] 10.8 fL Normal 6.2-12.0 [facility] Comment on above: Order Comment: Order Date: 12/04/24Order Info: 0184-1 - CBCD Performed By: #### L 501.9985, L501.5200, L500.4050, L100.0100, L500.4100, L506.1000 ####[facility] [address] [place], [address] Platelets (Bld) [#/Vol] 281 10*3/uL Normal 150-450 [facility] Comment on above: Order Comment: Order Date: 12/04/24Order Info: 0184-1 - CBCD Performed By: #### L 501.9985, L501.5200, L500.4050, L100.0100, L500.4100, L506.1000 ####[facility] [address] [place], [address] RBC (Bld) [#/Vol] 5.07 10*6/uL Normal 4.6-6.2 [facility] Comment on above: Order Comment: Order Date: 12/04/24Order Info: 0184-1 - CBCD Performed By: #### L 501.9985, L501.5200, L500.4050, L100.0100, L500.4100, L506.1000 ####[facility] [address] [place], [address] RDW SD 45.1 fl High 35.1-43.9 [facility] Comment on above: Order Comment: Order Date: 12/04/24Order Info: 0184-1 - CBCD Performed By: #### L 501.9985, L501.5200, L500.4050, L100.0100, L500.4100, L506.1000 ####[facility] [address] [place], [address] WBC (Bld) [#/Vol] 10.9 10*3/uL Normal 4.4-11.0 [facility] Comment on above: Order Comment: Order Date: 12/04/24Order Info: 0184-1 - CBCD Performed By: #### L 501.9985, L501.5200, L500.4050, L100.0100, L500.4100, L506.1000 ####[facility] [address] [place], [address] Carbon dioxide measurementOr dered By: Ron Cooley on 12-04-2024 CO2 [Moles/Vol] 29.0 mmol/L 21.0-32.0 [facility] Chloride measurementOrdered By: Ron Cooley on 12-04-2024 Chloride [Moles/Vol] 105 mmol/L 98-107 [place] Comprehensive Metabolic Prof ilon 12-04-2024 Albumin [Mass/Vol] 3.7 g/dL Normal 3.2-5.0 [facility] Comment on above: Order Comment: Order Date: 12/04/24Order Info: 0786-1 - CMPOrder Info: [id number] - LIPIDOrder Info: [id number] - MG Performed By: #### L 501.9985, L501.5200, L500.4050, L100.0100, L500.4100, L506.1000 ####[facility] [address] [place], [address] Albumin/Globulin [Mass ratio] 1.0 {ratio} Normal 0.9-2.4 [facility] Comment on above: Order Comment: Order Date: 12/04/24Order Info: 0786-1 - CMPOrder Info: [id number] - LIPIDOrder Info: [id number] - MG Performed By: #### L 501.9985, L501.5200, L500.4050, L100.0100, L500.4100, L506.1000 ####[facility] [address] [place], [address] ALK P 91 U/L Normal 45-117 [facility] Comment on above: Order Comment: Order Date: 12/04/24Order Info: 0786-1 - CMPOrder Info: [id number] - LIPIDOrder Info: [id number] - MG Performed By: #### L 501.9985, L501.5200, L500.4050, L100.0100, L500.4100, L506.1000 ####[facility] [address] [place], [address] ALT [Catalytic activity/Vol] 11 U/L Low 16-61 [facility] Comment on above: Order Comment: Order Date: 12/04/24Order Info: 0786-1 - CMPOrder Info: [id number] - LIPIDOrder Info: [id number] - MG Performed By: #### L 501.9985, L501.5200, L500.4050, L100.0100, L500.4100, L506.1000 ####[facility] [address] [place], [address] AST [Catalytic activity/Vol] 13 U/L Low 15-37 [facility] Comment on above: Order Comment: Order Date: 01/15/25Order Info: [id number] - CMPOrder Info: [id number] - LIPIDOrder Info: [id number] - MG Performed By: #### L 501.9985, L501.5200, L500.4050, L100.0100, L500.4100, L506.1000 ####[facility] [address] [place], [address] Bilirubin [Mass/Vol] 0.80 mg/dL Normal 0.20-1.00 [facility] Comment on above: Order Comment: Order Date: 12/04/24Order Info: 86-1 - CMPOrder Info: [id number] - LIPIDOrder Info: [id number] - MG Result Comment: For patients on eltrombopag therapy, use of Dimension [place] TBIL is not recommended. Performed By: #### L 501.9985, L501.5200, L500.4050, L100.0100, L500.4100, L506.1000 ####[facility] [address] [place], [address] BUN/CRE 19.7 RATIO Normal 10-20 [facility] Comment on above: Order Comment: Order Date: 12/04/24Order Info: 07- - CMPOrder Info: [id number] - LIPIDOrder Info: [id number] - MG Performed By: #### L 501.9985, L501.5200, L500.4050, L100.0100, L500.4100, L506.1000 ####[facility] [address] [place], [address] CA,Total 9.4 mg/dL Normal 8.5-10.1 [facility] Comment on above: Order Comment: Order Date: 12/04/24Order Info: 0786-1 - CMPOrder Info: [id number] - LIPIDOrder Info: [id number] - MG Performed By: #### L 501.9985, L501.5200, L500.4050, L100.0100, L500.4100, L506.1000 ####[facility] [address] [place], [address] Chloride [Moles/Vol] 105 mmol/L Normal 98-107 [place] Comment on above: Order Comment: Order Date: 12/04/24Order Info: [id number] - CMPOrder Info: [id number] - LIPIDOrder Info: [id number] - MG Performed By: #### L 501.9985, L501.5200, L500.4050, L100.0100, L500.4100, L506.1000 ####[facility] [address] [place], [address] CO2 [Moles/Vol] 29.0 mmol/L Normal 21.0-32.0 [facility] Comment on above: Order Comment: Order Date: 12/04/24Order Info: [id number] - CMPOrder Info: [id number] - LIPIDOrder Info: [id number] - MG Performed By: #### L 501.9985, L501.5200, L500.4050, L100.0100, L500.4100, L506.1000 ####[facility] [address] [place], [address] Creatinine [Mass/Vol] 0.96 mg/dL Normal 0.70-1.30 [facility] Comment on above: Order Comment: Order Date: 12/04/24Order Info: [id number] - CMPOrder Info: [id number] - LIPIDOrder Info: [id number] - MG Result Comment: The validity of the calculated GFR GFRAA in patients over 70 years has not been determined. Clinical correlation is essential. Performed By: #### L 501.9985, L501.5200, L500.4050, L100.0100, L500.4100, L506.1000 ####[facility] [address] [place], [address] EST GFR - AA 97 mL/min Normal >60 [facility] Comment on above: Order Comment: Order Date: 12/04/24Order Info: [id number] - CMPOrder Info: [id number] - LIPIDOrder Info: [id number] - MG Result Comment: Afri can [place] GFR Calc Performed By: #### L 501.9985, L501.5200, L500.4050, L100.0100, L500.4100, L506.1000 ####[facility] [address] [place], [address] GAP 5 Normal 5-15 [facility] Comment on above: Order Comment: Order Date: 12/04/24Order Info: [id number] - CMPOrder Info: [id number] - LIPIDOrder Info: [id number] - MG Performed By: #### L 501.9985, L501.5200, L500.4050, L100.0100, L500.4100, L506.1000 ####[facility] [address] [place], [place], [address](677) GFR/1.73 sq M.predicted among non-blacks MDRD (S/P/Bld) [Vol rate/Area] 80 mL/min/{1.73_m2} Normal >60 [facility] Comment on above: Order Comment: Order Date: 12/04/24Order Info: [id number] - CMPOrder Info: [id number] - LIPIDOrder Info: [id number] - MG Result Comment: Non- GFR Calc Performed By: #### L 501.9985, L501.5200, L500.4050, L100.0100, L500.4100, L506.1000 ####[facility] [address] [place], [address] Globulin (S) [Mass/Vol] 3.7 g/dL Normal 2.2-4.2 [facility] Comment on above: Order Comment: Order Date: 12/04/24Order Info: [id number] - CMPOrder Info: [id number] - LIPIDOrder Info: [id number] - MG Performed By: #### L 501.9985, L501.5200, L500.4050, L100.0100, L500.4100, L506.1000 ####[facility] [address] [place], [address] Glucose [Mass/Vol] 48 mg/dL Low 74-106 [facility] Comment on above: Order Comment: Order Date: 12/04/24Order Info: [id number] - CMPOrder Info: [id number] - LIPIDOrder Info: [id number] - MG Result Comment: Gluc ose result less than 50 mg/dL suggests HYPOGLYCEMIA. Performed By: #### L 501.9985, L501.5200, L500.4050, L100.0100, L500.4100, L506.1000 ####[facility] [address] [place], [address] Potassium [Moles/Vol] 3.9 mmol/L Normal 3.5-5.1 [facility] Comment on above: Order Comment: Order Date: 12/04/24Order Info: [id number] - CMPOrder Info: [id number] - LIPIDOrder Info: [id number] - MG Performed By: #### L 501.9985, L501.5200, L500.4050, L100.0100, L500.4100, L506.1000 ####[facility] [address] [place], [address] Sodium [Moles/Vol] 139 mmol/L Normal 136-145 [facility] Comment on above: Order Comment: Order Date: 12/04/24Order Info: [id number] - CMPOrder Info: [id number] - LIPIDOrder Info: [id number] - MG Performed By: #### L 501.9985, L501.5200, L500.4050, L100.0100, L500.4100, L506.1000 ####[facility] [address] [place], [address] T PROT 7.4 g/dL Normal 6.4-8.2 [facility] Comment on above: Order Comment: Order Date: 12/04/24Order Info: [id number] - CMPOrder Info: [id number] - LIPIDOrder Info: [id number] - MG Performed By: #### L 501.9985, L501.5200, L500.4050, L100.0100, L500.4100, L506.1000 ####[facility] [address] [place], [address] Urea nitrogen [Mass/Vol] 19 mg/dL High 7-18 [facility] Comment on above: Order Comment: Order Date: 12/04/24Order Info: [id number] - CMPOrder Info: [id number] - LIPIDOrder Info: [id number] - MG Performed By: #### L 501.9985, L501.5200, L500.4050, L100.0100, L500.4100, L506.1000 ####[facility] [address] [place], [address] Eosinophil percentageOrdered By: Ron Cooley on 12-04-2024 Eosinophils/100 WBC (Bld) 1.8 % 0-5 [facility] Erythrocyte distribution wid th ratioOrdered By: Ron Cooley on 12-04-2024 Erythrocyte distribution width (RBC) [Ratio] 13.4 % 11.6-14.6 [facility] Erythrocyte distribution wid th standard deviationOrdered By: Ron Cooley on 12-04-2024 Erythrocyte distribution width (RBC) [Entitic vol] 45.1 fL High 35.1-43.9 [facility] Erythrocyte distribution width (RBC) [Ratio] 45.1 fl High 35.1-43.9 [facility] Estimated glomerular filtrat ion rate (GFR) AmericanOrdered By: Ron Cooley on 12-04-2024 Estimated GFR (MDRD) Amer 97 mL/min >60 [facility] Comment on above: GFR Calc Glomerular filtration rate ( GFR) estimationOrdered By: Ron Cooley on 12-04-2024 Estimated GFR (MDRD) Non-Af Amer 80 mL/min >60 [facility] Comment on above: Non- GFR Calc GFR/1.73 sq M.predicted among non-blacks MDRD (S/P/Bld) [Vol rate/Area] 80 mL/min/{1.73_m2} >60 [facility] Comment on above: Non- GFR Calc Glucose measurementOrdered B y: Ron Cooley on 12-04-2024 Glucose [Mass/Vol] 48 mg/dL Low 74-106 [facility] Comment on above: Glucose result less than 50 mg/dL suggests HYPOGLYCEMIA. Hematocrit Auto (Bld) [Volum e fraction]Ordered By: Ron Cooley on 12-04-2024 Hematocrit (Bld) [Volume fraction] 47.1 % 40-54 [facility] Hemoglobin A1con 12-04-2024 HbA1c (Bld) [Mass fraction] 6.5 % High 3.8-5.6 [facility] Comment on above: Order Comment: Order Date: 12/04/24Order Info: [id number] - A1C Result Comment: Norm al < 5.7 % Prediabetic 5.7 - 6.4 % Diabetic >or= 6.5 % Please note range changes. Performed By: #### L 501.9985, L501.5200, L500.4050, L100.0100, L500.4100, L506.1000 ####[facility] [address] [place], [address] Hemoglobin A1c percentageOrd ered By: Ron Cooley on 12-04-2024 HbA1c (Bld) [Mass fraction] 6.5 % High 3.8-5.6 [facility] Comment on above: Normal < 5.7 % Predi abetic 5.7 - 6.4 % Diabetic >or= 6.5 % Please note range changes. Hemoglobin measurementOrdere d By: Ron Cooley on 12-04-2024 Hemoglobin (Bld) [Mass/Vol] 15.4 g/dL 13.0-16.5 [facility] High density lipoprotein (HD L) measurementOrdered By: Ron Cooley on 12-04-2024 Cholesterol in HDL [Mass/Vol] 45 mg/dL >40 [facility] Comment on above: The drugs N-Acetylcy steine and Metamizole may falsely depress this assay. Reference Range HDL <40 mg/dL Low HDL Cholesterol HDL >or= 60 mg/dL High HDL Cholesterol Immature granulocytes/100 WB C Auto (Bld)Ordered By: Ron Cooley on 12-04-2024 Immature granulocytes/100 WBC (Bld) 0.600 % 0.0-0.9 [facility] Comment on above: IG% - Immature Granu locytes (promyelocytes, myelocytes and metamyelocytes) > 1% indicates that a LEFT SHIFT is Present. Laboratory - Chemistry and C hemistry - challengeOrdered By: Ron Cooley on 12-04-2024 AST [Catalytic activity/Vol] 13 U/L Low 15- [facility] Lipid Profileon 12-04-2024 Cholesterol [Mass/Vol] 192 mg/dL Normal 200 [facility] Comment on above: Order Comment: Order Date: 12/04/24Order Info: [id number] - CMPOrder Info: [id number] - LIPIDOrder Info: [id number] - MG Result Comment: <200 mg/dL Desirable 200-240 mg/dL Borderline >240 mg/dL High Risk Performed By: #### L 501.9985, L501.5200, L500.4050, L100.0100, L500.4100, L506.1000 ####[facility] [address] [place], [address] Cholesterol in HDL [Mass/Vol] 45 mg/dL Normal [facility] Comment on above: Order Comment: Order Date: 12/04/24Order Info: [id number] - CMPOrder Info: [id number] - LIPIDOrder Info: [id number] - MG Result Comment: The drugs N-Acetylcysteine and Metamizole may falsely depress this assay. Reference Range HDL <40 mg/dL Low HDL Cholesterol HDL >or= 60 mg/dL High HDL Cholesterol Performed By: #### L 501.9985, L501.5200, L500.4050, L100.0100, L500.4100, L506.1000 ####[facility] [address] [place], [address] Cholesterol in LDL [Mass/Vol] 116 mg/dL Normal 0-130 [facility] Comment on above: Order Comment: Order Date: 12/04/24Order Info: [id number] - CMPOrder Info: [id number] - LIPIDOrder Info: [id number] - MG Performed By: #### L 501.9985, L501.5200, L500.4050, L100.0100, L500.4100, L506.1000 ####[facility] [address] [place], [address] Cholesterol in VLDL [Mass/Vol] 31 mg/dL Normal 5-40 [facility] Comment on above: Order Comment: Order Date: 12/04/24Order Info: [id number] - CMPOrder Info: [id number] - LIPIDOrder Info: [id number] - MG Performed By: #### L 501.9985, L501.5200, L500.4050, L100.0100, L500.4100, L506.1000 ####[facility] [address] [place], [place], [address] Triglyceride [Mass/Vol] 153 mg/dL Normal [facility] Comment on above: Order Comment: Order Date: 12/04/24Order Info: [id number] - CMPOrder Info: [id number] - LIPIDOrder Info: [id number] - MG Result Comment: The drugs N-Acetylcysteine and Metamizole may falsely depress this assay. Serum Triglycerides Reference Interval Normal <150 mg/dL Borderline high 150 - 199 mg/dL High 200 - 499 mg/dL Very High > or = 500 mg/dL Performed By: #### L 501.9985, L501.5200, L500.4050, L100.0100, L500.4100, L506.1000 ####[facility] [address] [place], [place], [address] Low density lipoprotein (LDL ) cholesterol measurementOrdered By: Ron Cooley on 12-04-2024 Cholesterol in LDL [Mass/Vol] 116 mg/dL 0-130 [facility] Lymphocytes Auto (Unsp spec) [#/Vol]Ordered By: Ron Cooley on 12-04-2024 Lymphocytes (Bld) [#/Vol] 3.42 10*3/uL 0.83-4.5 1 [facility] Lymphocytes/100 WBC Auto (Un sp spec)Ordered By: Ron Cooley on 12-04-2024 Lymphocytes/100 WBC (Bld) 31.5 % 19-41 [facility] MCV (mean corpuscular volume ) determinationOrdered By: Ron Cooley on 12-04-2024 MCV (RBC) [Entitic vol] 92.9 fL 80-94 [facility] Magnesiumon 12-04-2024 Magnesium [Mass/Vol] 2.0 mg/dL Normal 1.6-2.6 [place] Comment on above: Order Comment: Order Date: 12/04/24Order Info: [id number] - CMPOrder Info: [id number] - LIPIDOrder Info: [id number] - MG Performed By: #### L 501.9985, L501.5200, L500.4050, L100.0100, L500.4100, L506.1000 ####[facility] [address] [facility] [place], [address] Magnesium measurementOrdered By: Ron Cooley on 12-04-2024 Magnesium [Mass/Vol] 2.0 mg/dL 1.6-2.6 [place] Mean corpuscular hemoglobin (MCH) determinationOrdered By: Rno Cooley on 12-04-2024 MCH (RBC) [Entitic mass] 30.4 pg 27.0-32.0 [facility] Mean corpuscular hemoglobin concentration (MCHC) determinationOrdered By: Ron Cooley on 12-04-2024 MCHC (RBC) [Mass/Vol] 32.7 g/dL 32-36 [facility] Mean platelet volume determi nationOrdered By: Ron Cooley on 12-04-2024 Platelet mean volume (Bld) [Entitic vol] 10.8 fL 6.2-12.0 [facility] Monocyte percentageOrdered B y: Ron Cooley on 12-04-2024 Monocytes/100 WBC (Bld) 10.8 % High 0-10 [facility] Neutrophil percentageOrdered By: Ron Cooley on 12-04-2024 Neutrophils/100 WBC (Bld) 54.1 % 47-70 [facility] Nucleated red blood cell per centageOrdered By: Ron Cooley on 12-04-2024 Nucleated RBC/100 WBC (Bld) [Ratio] 0 % 0-5 [facility] Platelet countOrdered By: Rimma Cooley on 12-04-2024 Platelets (Bld) [#/Vol] 281 10*3/uL 150-450 [facility] Potassium measurementOrdered By: Ron Cooley on 12-04-2024 Potassium [Moles/Vol] 3.9 mmol/L 3.5-5.1 [facility] RBC Auto (Bld) [#/Vol]Ordere d By: Ron Cooley on 12-04-2024 RBC (Bld) [#/Vol] 5.07 10*6/uL 4.6-6.2 [facility] Serum anion gap measurementO rdered By: Ron Cooley on 12-04-2024 Anion gap [Moles/Vol] 5 mmol/L 5-15 [facility] Serum globulin measurementOr dered By: Ron Cooley on 12-04-2024 Globulin (S) [Mass/Vol] 3.7 g/dL 2.2-4.2 [facility] Serum or plasma alanine max otransferase (ALT) measurementOrdered By: Ron Cooley on 12-04-2024 ALT [Catalytic activity/Vol] 11 U/L Low 16-61 [facility] Serum or plasma albumin walt urement (mass/volume)Ordered By: Ron Cooley on 12-04-2024 Albumin [Mass/Vol] 3.7 g/dL 3.2-5.0 [facility] Serum or plasma alkaline sarah sphatase measurementOrdered By: Ron Cooley on 12-04-2024 ALP [Catalytic activity/Vol] 91 U/L 45-117 [facility] Serum or plasma calcium walt urement (mass/volume)Ordered By: Ron Cooley on 12-04-2024 Calcium [Mass/Vol] 9.4 mg/dL 8.5-10.1 [facility] Serum or plasma cholesterol measurement (mass/volume)Ordered By: Ron Cooley on 12-04-2024 Cholesterol [Mass/Vol] 192 mg/dL <200 [facility] Comment on above: <200 mg/dL Desirable 200-240 mg/dL Borderline >240 mg/dL High Risk Serum or plasma creatinine m easurement (mass/volume)Ordered By: Ron Cooley on 12-04-2024 Creatinine [Mass/Vol] 0.96 mg/dL 0.70-1.30 [facility] Comment on above: The validity of the calculated GFR & GFRAA in patients over 70 years has not been determined. Clinical correlation is essential. Serum or plasma urea nitroge n measurement (mass/volume)Ordered By: Ron Cooley on 12-04-2024 Urea nitrogen [Mass/Vol] 19 mg/dL High 7-18 [facility] Sodium levelOrdered By: Ron Cooley on 12-04-2024 Sodium [Moles/Vol] 139 mmol/L 136-145 [facility] Total proteinOrdered By: Kwabena Cooley on 12-04-2024 Protein [Mass/Vol] 7.4 g/dL 6.4-8.2 [facility] Triglycerides measurementOrd ered By: Ron Cooley on 12-04-2024 Triglyceride [Mass/Vol] 153 mg/dL <199 [facility] Comment on above: The drugs N-Acetylcy steine and Metamizole may falsely depress this assay.Serum Triglycerides Reference Interval Normal <150 mg/dL Borderline high 150 - 199 mg/dL High 200 - 499 mg/dL Very High > or = 500 mg/dL Very low density lipoprotein (VLDL) cholesterol measurementOrdered By: Ron Cooley on 12-04-2024 Very low density lipoprotein (VLDL) cholesterol measurement 31 mg/dL 5-40 [facility] VLDL Cholesterol 31 mg/dL 5-40 [facility] Vitamin D,25 Hydroxyon 12-04 Vitamin D 25-OH 47.5 ng/mL Normal [facility] Comment on above: Order Comment: Order Date: 12/04/24Order Info: [id number] - [id number] Result Comment: Lisa min D 25(OH) Status Range Deficiency <20 ng/mL (50nmol/L) Insufficiency 20 - 30 ng/mL (50 - 75 nmol/L) Sufficiency 30 - 100 ng/mL (75 - 250 nmol/L) Toxicity >100 ng/mL (>250 nmol/L) Performed By: #### L 501.9985, L501.5200, L500.4050, L100.0100, L500.4100, L506.1000 ####[facility] [address] [place], [address] White blood cell (WBC) count Ordered By: Ron Cooley on 12-04-2024 WBC (Bld) [#/Vol] 10.9 10*3/uL 4.4-11.0 [facility] Chest PA and Lateralon 12-02 Chest PA and Lateral [facility] Imaging Services [address] [place] [address] Chest PA and Lateral MR#: [id number] Acct: [id number] Name: KEVIN GRIFFITH Rep #: [id number] : 1945 M 79 From: José Luis Nicolas PCP: Dr. Ron Cooley MD Status: [facility] Study: Chest PA and Lateral Date of Exam: 12/02/24 Exam# [id number] Ordering Dr: [place] [id number] INDICATION: HYPOXEMIA EXAMINATION/TECHNIQUE: X-RAY - XR Chest [...] Ron Cooley MD; Dr. Jose Perez MD [employer] Agent: Signed Normal [facility] AST(SGOT)on 10-28-2024 AST [Catalytic activity/Vol] 9 U/L Low 15-37 [facility] Comment on above: Performed By: #### L 501.9985, L500.2500, L501.4405, L3100.1725, L503.0106, L501.4100 #### [facility] [address] [place], [address] Alanine Aminotransferas (SGP T)on 10-28-2024 ALT [Catalytic activity/Vol] 8 U/L Low 16-61 [facility] Comment on above: Performed By: #### L 501.9985, L500.2500, L501.4405, L3100.1725, L503.0106, L501.4100 #### [facility] [address] [place], [address] Basic Metabolic Profile (BMP )on 10-28-2024 BUN/CRE 26.5 RATIO High 10-20 [facility] Comment on above: Performed By: #### L 501.9985, L500.2500, L501.4405, L3100.1725, L503.0106, L501.4100 #### [facility] [address] [place], [address] CA,Total 9.3 mg/dL Normal 8.5-10.1 [facility] Comment on above: Performed By: #### L 501.9985, L500.2500, L501.4405, L3100.1725, L503.0106, L501.4100 #### [facility] [address] [place], [address] Chloride [Moles/Vol] 105 mmol/L Normal 98-107 [place] Comment on above: Performed By: #### L 501.9985, L500.2500, L501.4405, L3100.1725, L503.0106, L501.4100 #### [facility] [address] [place], [address] CO2 [Moles/Vol] 31.0 mmol/L Normal 21.0-32.0 [facility] Comment on above: Performed By: #### L 501.9985, L500.2500, L501.4405, L3100.1725, L503.0106, L501.4100 #### [facility] [address] [place], [address] Creatinine [Mass/Vol] 0.91 mg/dL Normal 0.70-1.30 [facility] Comment on above: Result Comment: The validity of the calculated GFR GFRAA in patients over 70 years has not been determined. Clinical correlation is essential. Performed By: #### L 501.9985, L500.2500, L501.4405, L3100.1725, L503.0106, L501.4100 #### [facility] [address] [place], [address] EST GFR - AA 103 mL/min Normal >60 [facility] Comment on above: Result Comment: Afri can [place] GFR Calc Performed By: #### L 501.9985, L500.2500, L501.4405, L3100.1725, L503.0106, L501.4100 #### [facility] [address] [place], [address] GAP 5 Normal 5-15 [facility] Comment on above: Performed By: #### L 501.9985, L500.2500, L501.4405, L3100.1725, L503.0106, L501.4100 #### [facility] [address] [place], [address] GFR/1.73 sq M.predicted among non-blacks MDRD (S/P/Bld) [Vol rate/Area] 86 mL/min/{1.73_m2} Normal >60 [facility] Comment on above: Result Comment: Non- GFR Calc Performed By: #### L 501.9985, L500.2500, L501.4405, L3100.1725, L503.0106, L501.4100 #### [facility] [address] [place], [address] Glucose [Mass/Vol] 111 mg/dL High 74-106 [facility] Comment on above: Result Comment: Fast ing Glucose result from 100 to 125 mg/dL suggests IMPAIRED HOMEOSTASIS per A.D.A. criteria. Performed By: #### L 501.9985, L500.2500, L501.4405, L3100.1725, L503.0106, L501.4100 #### [facility] [address] [place], [address] Potassium [Moles/Vol] 3.4 mmol/L Low 3.5-5.1 [facility] Comment on above: Performed By: #### L 501.9985, L500.2500, L501.4405, L3100.1725, L503.0106, L501.4100 #### [facility] [address] [place], [address] Sodium [Moles/Vol] 142 mmol/L Normal 136-145 [facility] Comment on above: Performed By: #### L 501.9985, L500.2500, L501.4405, L3100.1725, L503.0106, L501.4100 #### [facility] [address] [place], [address] Urea nitrogen [Mass/Vol] 24 mg/dL High 7-18 [facility] Comment on above: Performed By: #### L 501.9985, L500.2500, L501.4405, L3100.1725, L503.0106, L501.4100 #### [facility] [address] [place], [place], [address] Blood urea nitrogen (BUN)/cr eatinine ratioOrdered By: Natasha Gregory on 10-28-2024 Urea nitrogen/Creatinine [Mass ratio] 26.5 mg/mg High 10-20 [facility] Carbon dioxide measurementOr dered By: Natasha Gregory on 10-28-2024 CO2 [Moles/Vol] 31.0 mmol/L 21.0-32.0 [facility] Chloride measurementOrdered By: Natasha Gregory on 10-28-2024 Chloride [Moles/Vol] 105 mmol/L 98-107 [place] Estimated glomerular filtrat ion rate (GFR) AmericanOrdered By: Natasha Gregory on 10-28-2024 Estimated GFR (MDRD) Amer 103 mL/min >60 [facility] Comment on above: GFR Calc Glomerular filtration rate ( GFR) estimationOrdered By: Natasha Gregory on 10-28-2024 Estimated GFR (MDRD) Non-Af Amer 86 mL/min >60 [facility] Comment on above: Non- GFR Calc Glucose measurementOrdered B y: Natasha Gregory on 10-28-2024 Glucose [Mass/Vol] 111 mg/dL High 74-106 [facility] Comment on above: Fasting Glucose resu lt from 100 to 125 mg/dL suggests IMPAIRED HOMEOSTASIS per A.D.A. criteria. Hemoglobin A1con 10-28-2024 HbA1c (Bld) [Mass fraction] 6.4 % High 3.8-5.6 [facility] Comment on above: Result Comment: Norm al < 5.7 % Prediabetic 5.7 - 6.4 % Diabetic >or= 6.5 % Please note range changes. Performed By: #### L 501.9985, L500.2500, L501.4405, L3100.1725, L503.0106, L501.4100 #### [facility] [address] [place], [place], [address] Hemoglobin A1c percentageOrd ered By: Natasha Gregory on 10-28-2024 HbA1c (Bld) [Mass fraction] 6.4 % High 3.8-5.6 [facility] Comment on above: Normal < 5.7 % Predi abetic 5.7 - 6.4 % Diabetic >or= 6.5 % Please note range changes. Laboratory - Chemistry and C hemistry - challengeOrdered By: Natasha Gregory on 10-28-2024 AST [Catalytic activity/Vol] 9 U/L Low 15-37 [facility] Potassium measurementOrdered By: Natasha Gregory on 10-28-2024 Potassium [Moles/Vol] 3.4 mmol/L Low 3.5-5.1 [facility] Serum anion gap measurementO rdered By: Natasha Gregory on 10-28-2024 Anion gap [Moles/Vol] 5 mmol/L 5-15 [facility] Serum or plasma alanine max otransferase (ALT) measurementOrdered By: Natasha Gregory on 10-28-2024 ALT [Catalytic activity/Vol] 8 U/L Low 16-61 [facility] Serum or plasma calcium walt urement (mass/volume)Ordered By: Natasha Gregory on 10-28-2024 Calcium [Mass/Vol] 9.3 mg/dL 8.5-10.1 [facility] Serum or plasma creatinine m easurement (mass/volume)Ordered By: Natasha Gregory on 10-28-2024 Creatinine [Mass/Vol] 0.91 mg/dL 0.70-1.30 [facility] Comment on above: The validity of the calculated GFR & GFRAA in patients over 70 years has not been determined. Clinical correlation is essential. Serum or plasma urea nitroge n measurement (mass/volume)Ordered By: Natasha Gregory on 10-28-2024 Urea nitrogen [Mass/Vol] 24 mg/dL High 7-18 [facility] Sodium levelOrdered By: Josefina Gregory on 10-28-2024 Sodium [Moles/Vol] 142 mmol/L 136-145 [facility] Emergency Department Summary on 10-12-2024 Emergency Department Summary [facility] Medical Records Department [address] [place] [address] Emergency Department Summary 10/12/24 MR#: [id number] Acct: [id number] Name: KEVIN GRIFFITH Rep #: [id number] : 1945 79 From: Osman Farooq MD [...] has not been coughing up any blood. [facility] Medical History Parkinson's disease Right bundle branch [...] Reports m (more content not included)... Normal [facility] Ribs Uni Min 3V w/PA Cheston 10-12-2024 Ribs Uni Min 3V w/PA Chest [facility] Imaging Services [address] [place], [place] [address] Ribs Uni Min 3V w/PA Chest MR#: [id number] Acct: [id number] Name: KEVIN GRIFFITH Rep #: [id number] : 1945 M 79 From: Osman Ramos MD PCP: Dr. Ron Cooley MD Status: REG ER Study: Ribs Uni Min 3V w/PA Chest Date of Exam: 10/12 Exam# [id number] Ordering [place]: [place] [id number] STUDY: X-RAY - UNILATERAL RIBS ( LEFT [...] Osman Farooq MD; Dr. 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 Normal [facility] Chest PA and Lateralon 09-27 Chest PA and Lateral [facility] Imaging Services [address] [place] [address] Chest PA and Lateral MR#: [id number] Acct: [id number] Name: KEVIN GRIFFITH Rep #: [id number] : 1945 M 79 From: Humberto Perez MD PCP: Dr. Ron Cooley MD Status: [facility] Study: Chest PA and Lateral Date of Exam: 09/27/24 Exam# [id number] Ordering [place]: [place] [id number] STUDY: X-RAY CHEST REASON FOR EXAM: Male, [...] Ron Cooley MD; Dr. Imer Gee MD [employer] Agent: Signed Normal [facility] Modified Barium Swallow Stud yon 09-20-2024 Modified Barium Swallow Study [facility] Speech Pathology [address] [place] [address] Modified Barium Swallow Study MR#: [id number] Acct: [id number] Name: KEVIN GRIFFITH Rep #: [id number] : 1945 79 From: Chayito Barber Modified [...] swallow: Result: 1= does not enter airway [place] Thick Liquid via small single sip: cup: [...] a teaspoon or when prompted by the DOCTORATE OF CHIROPRACTIC to take smaller sips. Poor bolus control and delayed pharyn (more content not included)... Normal [facility] MARIAH + Protein Elect, Serumon 09-05-2024 Albumin [Mass/Vol] 3.9 g/dL Normal 2.9-4.4 [facility] Comment on above: Order Comment: LUPE Deleon SEND RESULTS OF B12 AND FOLATES TO Performed By: #### L 501.9985, L500.2500, L501.4405, L3100.1725, L503.0106, L501.4100 #### [facility] [address] [place], [address] Albumin/Globulin [Mass ratio] 1.4 {ratio} Normal 0.7-1.7 [facility] Comment on above: Order Comment: LUPE Deleon SEND RESULTS OF B12 AND FOLATES TO Performed By: #### L 501.9985, L500.2500, L501.4405, L3100.1725, L503.0106, L501.4100 #### [facility] [address] [place], [address] NFFVD-[id number] 0.2 g/dL Normal 0.0-0.4 [facility] Comment on above: Order Comment: LUPE E SEND RESULTS OF B12 AND FOLATES TO Performed By: #### L 501.9985, L500.2500, L501.4405, L3100.1725, L503.0106, L501.4100 #### [facility] [address] [place], [address] KWTMX-5-QSFJ 0.8 g/dL Normal 0.4-1.0 [facility] Comment on above: Order Comment: LUPE E SEND RESULTS OF B12 AND FOLATES TO Performed By: #### L 501.9985, L500.2500, L501.4405, L3100.1725, L503.0106, L501.4100 #### [facility] [address] [place], [address] BETA GLOBULIN 0.9 g/dL Normal 0.7-1.3 [facility] Comment on above: Order Comment: [facility] S[facility] RESULTS OF B12 AND FOLATES TO Performed By: #### L 501.9985, L500.2500, L501.4405, L3100.1725, L503.0106, L501.4100 #### [facility] [address] [place], [address] GAMMA GLOBULIN 0.9 g/dL Normal 0.4-1.8 [facility] Comment on above: Order Comment: [facility] SEND RESULTS OF B12 AND FOLATES TO Performed By: #### L 501.9985, L500.2500, L501.4405, L3100.1725, L503.0106, L501.4100 #### [facility] [address] [place], [address] Globulin (S) [Mass/Vol] 2.8 g/dL Normal 2.2-3.9 [facility] Comment on above: Order Comment: LUPE E SEND RESULTS OF B12 AND FOLATES TO Performed By: #### L 501.9985, L500.2500, L501.4405, L3100.1725, L503.0106, L501.4100 #### [facility] [address] [place], [address] MARIAH RESULT,S Comment Normal . [facility] Comment on above: Order Comment: PLEAS E SEND RESULTS OF B12 AND FOLATES TO Result Comment: No m onoclonality detected. Performed By: #### L 501.9985, L500.2500, L501.4405, L3100.1725, L503.0106, L501.4100 #### [facility] [address] [place], [address] IMMUNOGLOB A QN 171 mg/dL Normal 61-437 [facility] Comment on above: Order Comment: PLEAS E SEND RESULTS OF B12 AND FOLATES TO Performed By: #### L 501.9985, L500.2500, L501.4405, L3100.1725, L503.0106, L501.4100 #### [facility] [address] [place], [address] IMMUNOGLOB G QN 946 mg/dL Normal 603-1613 [facility] Comment on above: Order Comment: PLEAS E SEND RESULTS OF B12 AND FOLATES TO Performed By: #### L 501.9985, L500.2500, L501.4405, L3100.1725, L503.0106, L501.4100 #### [facility] [address] [place], [address] IMMUNOGLOB M QN 100 mg/dL Normal 15-143 [facility] Comment on above: Order Comment: PLEKRISTEN E SEND RESULTS OF B12 AND FOLATES TO Performed By: #### L 501.9985, L500.2500, L501.4405, L3100.1725, L503.0106, L501.4100 #### [facility] [address] [place], [place], [id number] M-Jose Antonio Not Observed Normal Not Observed [facility] Comment on above: Order Comment: LUPE Deleon SEND RESULTS OF B12 AND FOLATES TO Performed By: #### L 501.9985, L500.2500, L501.4405, L3100.1725, L503.0106, L501.4100 #### [facility] [address] [place], [address] NOTE: Comment Normal . [facility] Comment on above: Order Comment: LUPE Deleon SEND RESULTS OF B12 AND FOLATES TO Result Comment: Prot ein electrophoresis scan will follow via computer, mail, or guest relation officer delivery. Performed By: #### L 501.9985, L500.2500, L501.4405, L3100.1725, L503.0106, L501.4100 #### [facility] [address] [place], [place], [id number] Protein [Mass/Vol] 6.7 g/dL Normal 6.0-8.5 [facility] Comment on above: Order Comment: LUPE Deleon SEND RESULTS OF B12 AND FOLATES TO Performed By: #### L 501.9985, L500.2500, L501.4405, L3100.1725, L503.0106, L501.4100 #### [facility] [address] [place], [address] Immunofixation Urineon 09-05 MARIAH Urine Comment Normal . [facility] Comment on above: Order Comment: LUPE Deleon SEND RESULTS OF B12 AND FOLATES TO Result Comment: No m onoclonality detected. Performed at: [address] [id number] Microbiology Manager: Vj Garcia PhD, Phone: [phone] Performed By: #### L 501.9985, L500.2500, L501.4405, L3100.1725, L503.0106, L501.4100 #### [facility] [address] [place], [address] Neurology Visit Reporton Neurology Visit Report [facility] [address], [address] [place] [address] OFFICE VISIT Date of Service: 09/02/24 MR#: [id number] Acct: [id number] Name: KEVIN GRIFFITH Rep #: [id number] : 1945 Provider: Dr. Vick beltran MD Age/Sex: 79/M [place] [facility] 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 Normal [facility] Ankle min 3 Viewson 08-07-20 Ankle min 3 Views [facility] [address] [place] [address] Ankle min 3 Views MR#: [id number] Acct: [id number] Name: KEVIN GRIFFITH Rep #: [id number] : 1945 79 From: Humberto Perez MD PCP: Dr. Ron Cooley MD Status: [facility] Study: Ankle min 3 Views Date of Exam: 08/07/24 Exam# [id number] Ordering [place]: [place] [id number] STUDY: X-RAY - LEFT ANKLE REASON FOR [...] 15:36 EDT Reading Location ID and State: [facility] / [place] , Service support , CC: Dr. 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 Ron Cooley MD Status: [facility] Study: Forearm 2 Views Date of Exam: 08/07/24 Exam# [id number] Ordering [place]: [place] [id number] STUDY: X-RAY - LEFT RADIUS AND ULNA [...] EDT , CC: Dr. 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 Ron Cooley MD Status: REG CLI Study: Wrist min 3 Views Date of Exam: 08/07/24 Exam# [id number] Ordering [place]: [place] [id number] STUDY: X-RAY - LEFT WRIST REASON FOR [...] EDT , CC: Dr. 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, [address] Alanine Aminotransferas (SGP T)on 06-27-2024 ALT [Catalytic activity/Vol] 8 U/L Low 16-61 [facility] Comment on above: Performed By: #### L 501.9985, L501.4405, L500.2500, L501.4100, L500.4100, L502.0250, L501.9520 ####[facility] [address] [place], [address] Basic Metabolic Profile (BMP )on 06-27-2024 BUN/CRE 17.4 RATIO Normal 10-20 [facility] Comment on above: Performed By: #### L 501.9985, L501.4405, L500.2500, L501.4100, L500.4100, L502.0250, L501.9520 ####[facility] [address] [place], [address] CA,Total 8.8 mg/dL Normal 8.5-10.1 [facility] Comment on above: Performed By: #### L 501.9985, L501.4405, L500.2500, L501.4100, L500.4100, L502.0250, L501.9520 ####[facility] [address] [place], [address] Chloride [Moles/Vol] 109 mmol/L High 98-107 [facility] Comment on above: Performed By: #### L 501.9985, L501.4405, L500.2500, L501.4100, L500.4100, L502.0250, L501.9520 ####[facility] [address] [place], [address] CO2 [Moles/Vol] 28.0 mmol/L Normal 21.0-32.0 [facility] Comment on above: Performed By: #### L 501.9985, L501.4405, L500.2500, L501.4100, L500.4100, L502.0250, L501.9520 ####[facility] [address] [place], [place], [address] Creatinine [Mass/Vol] 0.92 mg/dL Normal 0.70-1.30 [facility] Comment on above: Result Comment: The validity of the calculated GFR GFRAA in patients over 70 years has not been determined. Clinical correlation is essential. Performed By: #### L 501.9985, L501.4405, L500.2500, L501.4100, L500.4100, L502.0250, L501.9520 ####[facility] [address] [place], [place], [id number] EST GFR - AA 102 mL/min Normal >60 [facility] Comment on above: Result Comment: Afri can [place] GFR Calc Performed By: #### L 501.9985, L501.4405, L500.2500, L501.4100, L500.4100, L502.0250, L501.9520 ####[facility] [address] [place], [place], [id number] GAP 6 Normal 5-15 [facility] Comment on above: Performed By: #### L 501.9985, L501.4405, L500.2500, L501.4100, L500.4100, L502.0250, L501.9520 ####[facility] [address] [place], [place], [address] GFR/1.73 sq M.predicted among non-blacks MDRD (S/P/Bld) [Vol rate/Area] 84 mL/min/{1.73_m2} Normal >60 [facility] Comment on above: Result Comment: Non- GFR Calc Performed By: #### L 501.9985, L501.4405, L500.2500, L501.4100, L500.4100, L502.0250, L501.9520 ####[facility] [address] [place], [address] Glucose [Mass/Vol] 47 mg/dL Low 74-106 [facility] Comment on above: Result Comment: Gluc ose result less than 50 mg/dL suggests HYPOGLYCEMIA. Performed By: #### L 501.9985, L501.4405, L500.2500, L501.4100, L500.4100, L502.0250, L501.9520 ####[facility] [address] [place], [address] Potassium [Moles/Vol] 3.5 mmol/L Normal 3.5-5.1 [facility] Comment on above: Performed By: #### L 501.9985, L501.4405, L500.2500, L501.4100, L500.4100, L502.0250, L501.9520 ####[facility] [address] [place], [address] Sodium [Moles/Vol] 143 mmol/L Normal 136-145 [facility] Comment on above: Performed By: #### L 501.9985, L501.4405, L500.2500, L501.4100, L500.4100, L502.0250, L501.9520 ####[facility] [address] [place], [address] Urea nitrogen [Mass/Vol] 16 mg/dL Normal 7-18 [facility] Comment on above: Performed By: #### L 501.9985, L501.4405, L500.2500, L501.4100, L500.4100, L502.0250, L501.9520 ####[facility] [address] [place], [address] Cardiology Visit Reporton Cardiology Visit Report [facility] [address] [place] [address] OFFICE VISIT Date of Service: 06/27/24 MR#: [id number] Acct: [id number] Name: KEVIN GRIFFITH Rep #: [id number] : 1945 Provider: Dr. 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 Normal [facility] Hemoglobin A1con 06-27-2024 HbA1c (Bld) [Mass fraction] 6.4 % High 3.8-5.6 [facility] Comment on above: Result Comment: Norm al < 5.7 % Prediabetic 5.7 - 6.4 % Diabetic >or= 6.5 % Please note range changes. Performed By: #### L 501.9985, L501.4405, L500.2500, L501.4100, L500.4100, L502.0250, L501.9520 ####[facility] [address] [place], [address] Lipid Profileon 06-27-2024 Cholesterol [Mass/Vol] 105 mg/dL Normal 200 [facility] Comment on above: Result Comment: <200 mg/dL Desirable 200-240 mg/dL Borderline >240 mg/dL High Risk Performed By: #### L 501.9985, L501.4405, L500.2500, L501.4100, L500.4100, L502.0250, L501.9520 ####[facility] [address] [place], [address] Cholesterol in HDL [Mass/Vol] 45 mg/dL Normal [facility] Comment on above: Result Comment: The drugs N-Acetylcysteine and Metamizole may falsely depress this assay. Reference Range HDL <40 mg/dL Low HDL Cholesterol HDL >or= 60 mg/dL High HDL Cholesterol Performed By: #### L 501.9985, L501.4405, L500.2500, L501.4100, L500.4100, L502.0250, L501.9520 ####[facility] [address] [place], [address] Cholesterol in LDL [Mass/Vol] 40 mg/dL Normal 0-130 [facility] Comment on above: Performed By: #### L 501.9985, L501.4405, L500.2500, L501.4100, L500.4100, L502.0250, L501.9520 ####[facility] [address] [place], [address] Cholesterol in VLDL [Mass/Vol] 20 mg/dL Normal 5-40 [facility] Comment on above: Performed By: #### L 501.9985, L501.4405, L500.2500, L501.4100, L500.4100, L502.0250, L501.9520 ####[facility] [address] [place], [address] Triglyceride [Mass/Vol] 99 mg/dL Normal [facility] Comment on above: Result Comment: The drugs N-Acetylcysteine and Metamizole may falsely depress this assay. Serum Triglycerides Reference Interval Normal <150 mg/dL Borderline high 150 - 199 mg/dL High 200 - 499 mg/dL Very High > or = 500 mg/dL Performed By: #### L 501.9985, L501.4405, L500.2500, L501.4100, L500.4100, L502.0250, L501.9520 ####[facility] [address] [place], [address] Microalb:Creat Ratio,Random URon 06-27-2024 MALB:CRE Normal <30 mg/g CRE [facility] Comment on above: Result Comment: VIKTOR ENT COULD NOT GIVE SAMPLE Performed By: #### L 501.9985, L501.4405, L500.2500, L501.4100, L500.4100, L502.0250, L501.9520 ####[facility] [address] [place], [address] MICROALBUMIN,UR Normal NO RANGE EST. [facility] Comment on above: Result Comment: VIKTOR ENT COULD NOT GIVE SAMPLE Performed By: #### L 501.9985, L501.4405, L500.2500, L501.4100, L500.4100, L502.0250, L501.9520 ####[facility] [address] [place], [address] UR CREAT Normal NO RANGE EST. [facility] Comment on above: Result Comment: VIKTOR ENT COULD NOT GIVE SAMPLE Performed By: #### L 501.9985, L501.4405, L500.2500, L501.4100, L500.4100, L502.0250, L501.9520 ####[facility] [address] [place], [place], [id number] Thyroid Stim Hormone (TSH)on 06-27-2024 TSH 1.99 uIU/mL Normal 0.358-3.74 [facility] Comment on above: Performed By: #### L 501.9985, L501.4405, L500.2500, L501.4100, L500.4100, L502.0250, L501.9520 ####[facility] [address] [place], [place], [id number] PSA,Total- Diagnosticon 07-2 PSA, DIAGNOSTIC 0.50 ng/mL Normal 0.0-4.0 [facility] Comment on above: Result Comment: This test was performed using the TPSA assay method for the Lab42 chemistry system. Values obtained with different assay methods cannot be used interchangably. When changing PSA assays in the course of monitoring a patient, additional sequential testing should be carried out to confirm baseline values. Performed By: #### L 501.9985, L500.2500, L501.4405, L3100.1725, L503.0106, L501.4100 #### [facility] [address] [place], [address] Basophil percentageOrdered B y: Vick Santo on 03-25-2024 Bilirubin [Mass/Vol] 0.70 mg/dL 0.20-1.00 [facility] Comment on above: For patients on eltr ombopag therapy, use of Dimension [place] TBIL is not recommended. Chloride [Moles/Vol] 104 mmol/L 98-107 [place] Glucose [Mass/Vol] 260 mg/dL 74-106 [facility] Comment on above: Glucose result great er than or equal to 200 mg/dLsuggests DIABETES MELLITUS per A.D.A. criteria. Potassium [Moles/Vol] 3.9 mmol/L 3.5-5.1 [facility] Protein [Mass/Vol] 6.8 g/dL 6.4-8.2 [facility] Sodium [Moles/Vol] 138 mmol/L 136-145 [facility] Laboratory - Chemistry and C hemistry - challengeOrdered By: Vick Santo on 03-25-2024 Albumin/Globulin [Mass ratio] 1.1 {ratio} 0.9-2.4 [facility] ALP [Catalytic activity/Vol] 62 U/L 45-117 [facility] ALT [Catalytic activity/Vol] 13 U/L 16-61 [facility] CO2 [Moles/Vol] 28.0 mmol/L 21.0-32.0 [facility] Globulin (S) [Mass/Vol] 3.3 g/dL 2.2-4.2 [facility] Urea nitrogen/Creatinine [Mass ratio] 23.8 mg/mg 10-20 [facility] No Panel InformationOrdered By: Vick Santo on 03-25-2024 Estimated GFR (MDRD) Amer 92 mL/min >60 [facility] Comment on above: GFR Calc Estimated GFR (MDRD) Non-Af Amer 76 mL/min >60 [facility] Comment on above: Non- GFR Calc Serum or plasma calcium walt urement (mass/volume)Ordered By: Vick Santo on 03-25-2024 Calcium [Mass/Vol] 8.9 mg/dL 8.5-10.1 [facility] Serum or plasma creatinine m easurement (mass/volume)Ordered By: Vick Santo on 03-25-2024 Creatinine [Mass/Vol] 1.01 mg/dL 0.70-1.30 [facility] Comment on above: The validity of the calculated GFR & GFRAA in patients over 70 years has not been determined. Clinical correlation is essential. Serum or plasma urea nitroge n measurement (mass/volume)Ordered By: Vick Santo on 03-25-2024 Urea nitrogen [Mass/Vol] 24 mg/dL 7-18 [facility] Thin prep Papanicolaou smear with manual screeningOrdered By: Vickrobinson Santo on 03-25-2024 Thin prep Papanicolaou smear with manual screening 3.5 g/dL 3.2-5.0 [facility] Thin prep Papanicolaou smear with manual screening 11 U/L 15-37 [facility] Thin prep Papanicolaou smear with manual screening 6 5-15 [facility] Whole blood hemoglobin A1c/t otal hemoglobin ratio (mass fraction)Ordered By: Vick Santo on 03-25-2024 HbA1c (Bld) [Mass fraction] 6.1 % 3.8-5.6 [facility] Comment on above: Normal < 5.7 % Predi abetic 5.7 - 6.4 % Diabetic >or= 6.5 % Please note range changes. Basophil percentageOrdered B y: Ron Cooley on 02-27-2024 Chloride [Moles/Vol] 106 mmol/L 98-107 [place] Glucose [Mass/Vol] 94 mg/dL 74-106 [facility] Potassium [Moles/Vol] 3.9 mmol/L 3.5-5.1 [facility] Sodium [Moles/Vol] 141 mmol/L 136-145 [facility] Laboratory - Chemistry and C hemistry - challengeOrdered By: Ron Cooley on 02-27-2024 ALT [Catalytic activity/Vol] 14 U/L 16-61 [facility] CO2 [Moles/Vol] 28.0 mmol/L 21.0-32.0 [facility] Urea nitrogen/Creatinine [Mass ratio] 22.1 mg/mg 10-20 [facility] No Panel InformationOrdered By: Ron Cooley on 02-27-2024 Estimated GFR (MDRD) Amer 104 mL/min >60 [facility] Comment on above: GFR Calc Estimated GFR (MDRD) Non-Af Amer 86 mL/min >60 [facility] Comment on above: Non- GFR Calc Serum or plasma calcium walt urement (mass/volume)Ordered By: Ron Cooley on 02-27-2024 Calcium [Mass/Vol] 9.3 mg/dL 8.5-10.1 [facility] Serum or plasma creatinine m easurement (mass/volume)Ordered By: Ron Cooley on 02-27-2024 Creatinine [Mass/Vol] 0.90 mg/dL 0.70-1.30 [facility] Comment on above: The validity of the calculated GFR & GFRAA in patients over 70 years has not been determined. Clinical correlation is essential. Serum or plasma urea nitroge n measurement (mass/volume)Ordered By: Ron Coolye on 02-27-2024 Urea nitrogen [Mass/Vol] 20 mg/dL 7-18 [facility] Thin prep Papanicolaou smear with manual screeningOrdered By: Ron Cooley on 02-27-2024 Thin prep Papanicolaou smear with manual screening 15 U/L 15-37 [facility] Thin prep Papanicolaou smear with manual screening 7 5-15 [facility] Whole blood hemoglobin A1c/t otal hemoglobin ratio (mass fraction)Ordered By: Ron Cooley on 02-27-2024 HbA1c (Bld) [Mass fraction] 6.1 % 3.8-5.6 [facility] Comment on above: Normal < 5.7 % Predi abetic 5.7 - 6.4 % Diabetic >or= 6.5 % Please note range changes. Absolute lymphocyte countOrd ered By: Ron Cooley on 12-15-2023 Lymphocytes Auto (Unsp spec) [#/Vol] 3.13 10*3/uL 0.83-4.51 [facility] Automated lymphocyte count a s percentage of total leukocytesOrdered By: Ron Shepparddelia on 12-15-2023 Lymphocytes/100 WBC Auto (Unsp spec) 38.1 % 19-41 [facility] Basophil percentageOrdered B y: Ron Shepparddelia on 12-15-2023 Basophils/100 WBC (Bld) 0.7 % 0-1 [facility] Bilirubin [Mass/Vol] 0.80 mg/dL 0.20-1.00 [place] Comment on above: For patients on eltr ombopag therapy, use of Dimension [place] TBIL is not recommended. Chloride [Moles/Vol] 107 mmol/L 98-107 [place] Cholesterol [Mass/Vol] 136 mg/dL <200 [facility] Comment on above: <200 mg/dL Desirable 200-240 mg/dL Borderline >240 mg/dL High Risk Eosinophils/100 WBC (Bld) 1.8 % 0-5 [facility] Glucose [Mass/Vol] 87 mg/dL 74-106 [facility] Hemoglobin (Bld) [Mass/Vol] 15.3 g/dL 13.0-16.5 [facility] Monocytes/100 WBC (Bld) 10.5 % 0-10 [facility] Neutrophils (Bld) [#/Vol] 4.0 10*3/uL 2.0-7.7 [facility] Neutrophils/100 WBC (Bld) 48.4 % 47-70 [facility] Potassium [Moles/Vol] 3.7 mmol/L 3.5-5.1 [facility] Protein [Mass/Vol] 7.2 g/dL 6.4-8.2 [facility] Sodium [Moles/Vol] 140 mmol/L 136-145 [facility] Triglyceride [Mass/Vol] 127 mg/dL <199 [facility] Comment on above: The drugs N-Acetylcy steine and Metamizole may falsely depress this assay.Serum Triglycerides Reference Interval Normal <150 mg/dL Borderline high 150 - 199 mg/dL High 200 - 499 mg/dL Very High > or = 500 mg/dL WBC (Bld) [#/Vol] 8.2 10*3/uL 4.4-11.0 [facility] Determination of erythrocyte mean corpuscular volume (MCV)Ordered By: Ron Cooley on 12-15-2023 MCV (RBC) [Entitic vol] 90.0 fL 80-94 [facility] Erythrocyte distribution wid th ratioOrdered By: Ron Cooley on 12-15-2023 Erythrocyte distribution width (RBC) [Ratio] 13.2 % 11.6-14.6 [facility] Erythrocyte distribution wid th standard deviationOrdered By: Ron Cooley on 12-15-2023 Erythrocyte distribution width (RBC) [Entitic vol] 43.5 fL 35.1-43.9 [facility] Hematocrit Auto (Bld) [Volum e fraction]Ordered By: Ron Cooley on 12-15-2023 Hematocrit (Bld) [Volume fraction] 46.1 % 40-54 [facility] High density lipoprotein (HD L) measurementOrdered By: Ron Cooley on 12-15-2023 Cholesterol in HDL (Body fld) [Mass/Vol] 50 mg/dL >40 [facility] Comment on above: The drugs N-Acetylcy steine and Metamizole may falsely depress this assay. Reference Range HDL <40 mg/dL Low HDL Cholesterol HDL >or= 60 mg/dL High HDL Cholesterol Immature granulocytes/100 WB C Auto (Bld)Ordered By: Ron Cooley on 12-15-2023 Immature granulocytes/100 WBC (Bld) 0.500 % 0.0-0.9 [facility] Comment on above: IG% - Immature Granu locytes (promyelocytes, myelocytes and metamyelocytes) > 1% indicates that a LEFT SHIFT is Present. Laboratory - Chemistry and C hemistry - challengeOrdered By: Ron Cooley on 12-15-2023 Albumin/Globulin [Mass ratio] 1.1 {ratio} 0.9-2.4 [facility] ALP [Catalytic activity/Vol] 67 U/L 45-117 [facility] ALT [Catalytic activity/Vol] 12 U/L 16-61 [facility] CO2 [Moles/Vol] 29.0 mmol/L 21.0-32.0 [facility] Globulin (S) [Mass/Vol] 3.5 g/dL 2.2-4.2 [facility] Magnesium [Mass/Vol] 1.9 mg/dL 1.6-2.6 [place] Urea nitrogen/Creatinine [Mass ratio] 19.3 mg/mg 10-20 [facility] Laboratory - Hematology and Cell countsOrdered By: Ron Cooley on 12-15-2023 MCH (RBC) [Entitic mass] 29.9 pg 27.0-32.0 [facility] MCHC (RBC) [Mass/Vol] 33.2 g/dL 32-36 [facility] Nucleated RBC/100 WBC (Bld) [Ratio] 0 % 0-5 [facility] Platelets (Bld) [#/Vol] 240 10*3/uL 150-450 [facility] Low density lipoprotein (LDL ) cholesterol measurementOrdered By: Ron Cooley on 12-15-2023 Cholesterol in LDL (Body fld) [Moles/Vol] 61 mg/dL 0-130 [facility] No Panel InformationOrdered By: Ron Cooley on 12-15-2023 Estimated GFR (MDRD) Amer 101 mL/min >60 [facility] Comment on above: GFR Calc Estimated GFR (MDRD) Non-Af Amer 83 mL/min >60 [facility] Comment on above: Non- GFR Calc Platelet mean volume [facility] (Bld) [Entitic vol]Ordered By: Ron Cooley on 12-15-2023 Platelet mean volume (Bld) [Entitic vol] 11.1 fL 6.2-12.0 [facility] RBC Auto (Bld) [#/Vol]Ordere d By: Ron Cooley on 12-15-2023 RBC (Bld) [#/Vol] 5.12 10*6/uL 4.6-6.2 [facility] Serum or plasma calcium walt urement (mass/volume)Ordered By: Ron Cooley on 12-15-2023 Calcium [Mass/Vol] 9.2 mg/dL 8.5-10.1 [facility] Serum or plasma creatinine m easurement (mass/volume)Ordered By: Ron Cooley on 12-15-2023 Creatinine [Mass/Vol] 0.93 mg/dL 0.70-1.30 [facility] Comment on above: The validity of the calculated GFR & GFRAA in patients over 70 years has not been determined. Clinical correlation is essential. Serum or plasma thyroid stim ulating hormone (TSH) measurement (units/volume)Ordered By: Ron Cooley on 12-15-2023 TSH Qn 1.60 uIU/mL 0.358-3.74 [facility] Serum or plasma urea nitroge n measurement (mass/volume)Ordered By: Ron Cooley on 12-15-2023 Urea nitrogen [Mass/Vol] 18 mg/dL 7-18 [facility] Thin prep Papanicolaou smear with manual screeningOrdered By: Ron Cooley on 12-15-2023 Thin prep Papanicolaou smear with manual screening 3.7 g/dL 3.2-5.0 [facility] Thin prep Papanicolaou smear with manual screening 14 U/L 15-37 [facility] Thin prep Papanicolaou smear with manual screening 4 5-15 [facility] Very low density lipoprotein (VLDL) cholesterol measurementOrdered By: Ron Cooley on 12-15-2023 Cholesterol in VLDL Calc [Moles/Vol] 25 mg/dL 5-40 [facility] Whole blood hemoglobin A1c/t otal hemoglobin ratio (mass fraction)Ordered By: Ron Cooley on 12-15-2023 HbA1c (Bld) [Mass fraction] 5.9 % 3.8-5.6 [facility] Comment on above: Normal < 5.7 % Predi abetic 5.7 - 6.4 % Diabetic >or= 6.5 % Please note range changes. Albumin Elph [Mass/Vol]Order ed By: Vick Santo on 11-23-2023 Albumin [Mass/Vol] 3.6 g/dL 2.9-4.4 [facility] Basophil percentageOrdered B y: Vick Santo on 11-23-2023 Basophil percentage Comment: . [facility] Comment on above: Presence of monoclon al protein is unclear at this time. Suggestrepeat in 3 to 6 months if clinically indicated.Performed at: - [facility] [id number] Director: Vj Garcia PhD, Phone: [phone] Interpretation of serum or p lasma protein pattern by immunofixation (narrative resultOrdered By: Vick Santo on 11-23-2023 Protein Fractions Immunofixation Blanco [Interp] Not Observed g/dL Not Observed [facility] No Panel InformationOrdered By: Vick Santo on 11-23-2023 Addendum Document Comment . [facility] Comment on above: Protein electrophore sis scan will follow via computer,mail, or guest relation officer delivery. Serum [id number] measu rement by electrophoresisOrdered By: Vick Santo on 11-23-2023 Alpha 1 globulin Elph [Mass/Vol] 0.4 g/dL 0.0-0.4 [facility] Alpha 1 globulin Elph [Mass/Vol] 1.0 g/dL 0.4-1.0 [facility] Serum globulin measurement ( mass/volume)Ordered By: Vick Santo on 11-23-2023 Globulin (S) [Mass/Vol] 3.1 g/dL 2.2-3.9 [facility] Serum or plasma IgA measurem ent (mass/volume)Ordered By: Vick Santo on 11-23-2023 IgA [Mass/Vol] 167 mg/dL 61-437 [facility] Serum or plasma IgG measurem ent (mass/volume)Ordered By: Vick Santo on 11-23-2023 IgG [Mass/Vol] 849 mg/dL 603-1613 [facility] Serum or plasma IgM measurem ent (mass/volume)Ordered By: Vick Santo on 11-23-2023 IgM [Mass/Vol] 91 mg/dL 15-143 [facility] Serum or plasma beta globuli n measurement by electrophoresis (mass/volume)Ordered By: Vick Santo on 11-23-2023 Beta globulin Elph [Mass/Vol] 1.0 g/dL 0.7-1.3 [facility] Serum or plasma gamma globul in measurement by electrophoresis (mass/volume)Ordered By: Vick Santo on 11-23-2023 Gamma globulin Elph [Mass/Vol] 0.7 g/dL 0.4-1.8 [facility] Serum or plasma immunoelectr ophoresis interpretation (nominal result)Ordered By: Vick Santo on 11-23-2023 Interpretation IEP [Interp] Comment . [facility] Comment on above: No monoclonality det ected. Thin prep Papanicolaou smear with manual screeningOrdered By: Vick Santo on 11-23-2023 Thin prep Papanicolaou smear with manual screening 1.2 0.7-1.7 [facility] Total protein bloodOrdered B y: Vick Santo on 11-23-2023 Protein [Mass/Vol] 6.7 g/dL 6.0-8.5 [facility] Basophil percentageOrdered B y: Natasha Gregory on 10-31-2023 Chloride [Moles/Vol] 107 mmol/L 98-107 [place] Glucose [Mass/Vol] 102 mg/dL 74-106 [facility] Comment on above: Fasting Glucose resu lt from 100 to 125 mg/dL suggests IMPAIRED HOMEOSTASIS per A.D.A. criteria. Potassium [Moles/Vol] 3.6 mmol/L 3.5-5.1 [facility] Sodium [Moles/Vol] 142 mmol/L 136-145 [facility] Laboratory - Chemistry and C hemistry - challengeOrdered By: Natasha Gregory on 10-31-2023 ALT [Catalytic activity/Vol] 11 U/L 16-61 [facility] CO2 [Moles/Vol] 28.0 mmol/L 21.0-32.0 [facility] Urea nitrogen/Creatinine [Mass ratio] 22.7 mg/mg 10-20 [facility] No Panel InformationOrdered By: Natasha Gregory on 10-31-2023 Estimated GFR (MDRD) Amer 101 mL/min >60 [facility] Comment on above: GFR Calc Estimated GFR (MDRD) Non-Af Amer 84 mL/min >60 [facility] Comment on above: Non- GFR Calc Serum or plasma calcium walt urement (mass/volume)Ordered By: Natasha Gregory on 10-31-2023 Calcium [Mass/Vol] 8.8 mg/dL 8.5-10.1 [facility] Serum or plasma creatinine m easurement (mass/volume)Ordered By: Natasha Gregory on 10-31-2023 Creatinine [Mass/Vol] 0.93 mg/dL 0.70-1.30 [facility] Comment on above: The validity of the calculated GFR & GFRAA in patients over 70 years has not been determined. Clinical correlation is essential. Serum or plasma urea nitroge n measurement (mass/volume)Ordered By: Natasha Gregory on 10-31-2023 Urea nitrogen [Mass/Vol] 21 mg/dL 7-18 [facility] Thin prep Papanicolaou smear with manual screeningOrdered By: Natasha Gregory on 10-31-2023 Thin prep Papanicolaou smear with manual screening 10 U/L 15-37 [facility] Thin prep Papanicolaou smear with manual screening 7 5-15 [facility] Whole blood hemoglobin A1c/t otal hemoglobin ratio (mass fraction)Ordered By: Natasha Gregory on 10-31-2023 HbA1c (Bld) [Mass fraction] 5.7 % 3.8-5.6 [facility] Comment on above: Normal < 5.7 % Predi abetic 5.7 - 6.4 % Diabetic >or= 6.5 % Please note range changes. Basophil percentageOrdered B y: Natasha Gregory on 08-03-2023 Chloride [Moles/Vol] 108 mmol/L 98-107 [place] Cholesterol [Mass/Vol] 127 mg/dL <200 [facility] Comment on above: <200 mg/dL Desirable 200-240 mg/dL Borderline >240 mg/dL High Risk Glucose [Mass/Vol] 66 mg/dL 74-106 [facility] Potassium [Moles/Vol] 3.5 mmol/L 3.5-5.1 [facility] Sodium [Moles/Vol] 139 mmol/L 136-145 [facility] Triglyceride [Mass/Vol] 101 mg/dL <199 [facility] Comment on above: The drugs N-Acetylcy steine and Metamizole may falsely depress this assay.Serum Triglycerides Reference Interval Normal <150 mg/dL Borderline high 150 - 199 mg/dL High 200 - 499 mg/dL Very High > or = 500 mg/dL Laboratory - Chemistry and C hemistry - challengeOrdered By: Natasha Gregory on 08-03-2023 ALT [Catalytic activity/Vol] 11 U/L 16-61 [facility] CO2 [Moles/Vol] 26.0 mmol/L 21.0-32.0 [facility] Urea nitrogen/Creatinine [Mass ratio] 19.8 mg/mg 10-20 [facility] No Panel InformationOrdered By: Natasha Gregory on 08-03-2023 Urine Microalbumin/Creatinine Ratio 14.9 mg/g CRE <30 [facility] Estimated GFR (MDRD) Amer 97 mL/min >60 [facility] Comment on above: GFR Calc Estimated GFR (MDRD) Non-Af Amer 81 mL/min >60 [facility] Comment on above: Non- GFR Calc Thyroid Stimulating Hormone (TSH) 1.96 uIU/mL 0.358-3.74 [facility] Serum or plasma calcium walt urement (mass/volume)Ordered By: Natasha Gregory on 08-03-2023 Calcium [Mass/Vol] 9.0 mg/dL 8.5-10.1 [facility] Serum or plasma cholesterol in HDL measurement (mass/volume)Ordered By: Natasha Gregory on 08-03-2023 Cholesterol in HDL [Mass/Vol] 49 mg/dL >40 [facility] Comment on above: The drugs N-Acetylcy steine and Metamizole may falsely depress this assay. Reference Range HDL <40 mg/dL Low HDL Cholesterol HDL >or= 60 mg/dL High HDL Cholesterol Serum or plasma cholesterol in VLDL measurement (mass/volume)Ordered By: Natasha Gregory on 08-03-2023 Cholesterol in VLDL [Mass/Vol] 20 mg/dL 5-40 [facility] Serum or plasma creatinine m easurement (mass/volume)Ordered By: Natasha Gregory on 08-03-2023 Creatinine [Mass/Vol] 0.96 mg/dL 0.70-1.30 [facility] Comment on above: The validity of the calculated GFR & GFRAA in patients over 70 years has not been determined. Clinical correlation is essential. Serum or plasma low density lipoprotein (LDL) cholesterol measurement (mass/volume)Ordered By: Natasha Gregory on 08-03-2023 Cholesterol in LDL [Mass/Vol] 58 mg/dL 0-130 [facility] Serum or plasma urea nitroge n measurement (mass/volume)Ordered By: Natasha Gregory on 08-03-2023 Urea nitrogen [Mass/Vol] 19 mg/dL 7-18 [facility] Thin prep Papanicolaou smear with manual screeningOrdered By: Natasha Gregory on 08-03-2023 Thin prep Papanicolaou smear with manual screening 18.2 mg/L NO RANGE EST. [facility] Thin prep Papanicolaou smear with manual screening 9 U/L 15-37 [facility] Thin prep Papanicolaou smear with manual screening 5 5-15 [facility] Urine creatinine measurement (mass/volume)Ordered By: Natasha Gregory on 08-03-2023 Creatinine (U) [Mass/Vol] 122.00 mg/dL NO RANGE EST. [facility] Whole blood hemoglobin A1c/t otal hemoglobin ratio (mass fraction)Ordered By: Natasha Gregory on 08-03-2023 HbA1c (Bld) [Mass fraction] 6.2 % 3.8-5.6 [facility] Comment on above: Normal < 5.7 % Predi abetic 5.7 - 6.4 % Diabetic >or= 6.5 % Please note range changes. Basophil percentageOrdered B y: Dr. Santo on 05-09-2023 WBC (Bld) [#/Vol] 10.2 10*3/uL 4.4-11.0 [facility] Blood erythrocytes count (nu mber/volume)Ordered By: Dr. Santo on 05-09-2023 RBC (Bld) [#/Vol] 4.60 10*6/uL 4.6-6.2 [facility] Blood hemoglobin measurement (mass/volume)Ordered By: Dr. Santo on 05-09-2023 Hemoglobin (Bld) [Mass/Vol] 14.1 g/dL 13.0-16.5 [facility] Blood platelet mean volumeOr dered By: Dr. Santo on 05-09-2023 Platelet mean volume (Bld) [Entitic vol] 10.7 fL 6.2-12.0 [facility] Determination of erythrocyte mean corpuscular volume (MCV)Ordered By: Dr. Santo on 05-09-2023 MCV (RBC) [Entitic vol] 90.9 fL 80-94 [facility] Hematocrit Auto (Bld) [Volum e fraction]Ordered By: Dr. Santo on 05-09-2023 Hematocrit (Bld) [Volume fraction] 41.8 % 40-54 [facility] Laboratory - Chemistry and C hemistry - challengeOrdered By: Dr. Santo on 05-09-2023 Cobalamin (Vitamin B12) [Mass/Vol] 281 pg/mL 211-911 [facility] Laboratory - Hematology and Cell countsOrdered By: Dr. Santo on 05-09-2023 Erythrocyte distribution width (RBC) [Entitic vol] 44.1 fL 35.1-43.9 [facility] Erythrocyte distribution width (RBC) [Ratio] 13.3 % 11.6-14.6 [facility] MCH (RBC) [Entitic mass] 30.7 pg 27.0-32.0 [facility] MCHC Auto (RBC) [Mass/Vol]Or dered By: Dr. Santo on 05-09-2023 MCHC (RBC) [Mass/Vol] 33.7 g/dL 32-36 [facility] No Panel InformationOrdered By: Vick Santo on 05-09-2023 Free Lambda Light Chains, Quant 20.2 mg/L 5.7-26.3 [facility] Whole Blood Vitamin B1 Level 118.1 nmol/L 66.5-200.0 [facility] Comment on above: Performed at: - [address] [id number] Director: Vj Garcia PhD, Phone: [phone] at: [facility] [employer] [facility] [id number] Director: Sherine Mendez MD, Phone: [phone] No Panel InformationOrdered By: Dr. Santo on 05-09-2023 Thyroid Stimulating Hormone (TSH) 2.11 uIU/mL 0.358-3.74 [facility] Platelets bldOrdered By: Dr. Santo on 05-09-2023 Platelets (Bld) [#/Vol] 285 10*3/uL 150-450 [facility] Serum immunoglobulin kappa l ight chains/immunoglobulin lambda light chains mass ratioOrdered By: Vick Santo on 05-09-2023 Immunoglobulin light chains.kappa/Immunoglobul in light chains.lambda (S) [Mass ratio] 1.69 0.26-1.65 [facility] Serum or plasma folate measu rement (mass/volume)Ordered By: Dr. Santo on 05-09-2023 Folate [Mass/Vol] 11.40 ng/mL 3.1-55.4 [facility] Serum or plasma immunoglobul in kappa light chains measurement (mass/volume)Ordered By: Vick Santo on 05-09-2023 Immunoglobulin light chains.kappa [Mass/Vol] 34.1 mg/L 3.3-19.4 [facility] Basophil percentageOrdered B y: Dr. Gregory on 05-01-2023 Chloride [Moles/Vol] 107 mmol/L 98-107 [place] Glucose [Mass/Vol] 98 mg/dL 74-106 [facility] Potassium [Moles/Vol] 3.8 mmol/L 3.5-5.1 [facility] Sodium [Moles/Vol] 140 mmol/L 136-145 [facility] Laboratory - Chemistry and C hemistry - challengeOrdered By: Dr. Gregory on 05-01-2023 ALT [Catalytic activity/Vol] 13 U/L 16-61 [facility] CO2 [Moles/Vol] 26.0 mmol/L 21.0-32.0 [facility] Urea nitrogen/Creatinine [Mass ratio] 23.4 mg/mg 10-20 [facility] No Panel InformationOrdered By: Dr. Gregory on 05-01-2023 Estimated GFR (MDRD) Amer 95 mL/min >60 [facility] Comment on above: GFR Calc Estimated GFR (MDRD) Non-Af Amer 78 mL/min >60 [facility] Comment on above: Non- GFR Calc Serum or plasma calcium walt urement (mass/volume)Ordered By: Dr. Gregory on 05-01-2023 Calcium [Mass/Vol] 9.0 mg/dL 8.5-10.1 [facility] Serum or plasma creatinine m easurement (mass/volume)Ordered By: Dr. Gregory on 05-01-2023 Creatinine [Mass/Vol] 0.98 mg/dL 0.70-1.30 [facility] Comment on above: The validity of the calculated GFR & GFRAA in patients over 70 years has not been determined. Clinical correlation is essential. Serum or plasma urea nitroge n measurement (mass/volume)Ordered By: Dr. Gregory on 05-01-2023 Urea nitrogen [Mass/Vol] 23 mg/dL 7-18 [facility] Thin prep Papanicolaou smear with manual screeningOrdered By: Dr. Gregory on 05-01-2023 Thin prep Papanicolaou smear with manual screening 12 U/L 15-37 [facility] Thin prep Papanicolaou smear with manual screening 7 5-15 [facility] Whole blood hemoglobin A1c/t otal hemoglobin ratio (mass fraction)Ordered By: Dr. Gregory on 05-01-2023 HbA1c (Bld) [Mass fraction] 6.2 % 3.8-5.6 [facility] Comment on above: Normal < 5.7 % Predi abetic 5.7 - 6.4 % Diabetic >or= 6.5 % Please note range changes. Absolute lymphocyte countOrd ered By: Dr. Cooley on 02-21-2023 Lymphocytes Auto (Unsp spec) [#/Vol] 3.36 10*3/uL 0.83-4.51 [facility] Basophil percentageOrdered B y: Dr. Cooley on 02-21-2023 Basophils/100 WBC (Bld) 0.7 % 0-1 [facility] Bilirubin [Mass/Vol] 0.60 mg/dL 0.20-1.00 [place] Comment on above: For patients on eltr ombopag therapy, use of Dimension [place] TBIL is not recommended. Chloride [Moles/Vol] 104 mmol/L 98-107 [place] Cholesterol [Mass/Vol] 133 mg/dL <200 [facility] Comment on above: <200 mg/dL Desirable 200-240 mg/dL Borderline >240 mg/dL High Risk Eosinophils/100 WBC (Bld) 1.5 % 0-5 [facility] Glucose [Mass/Vol] 232 mg/dL 74-106 [facility] Comment on above: Glucose result great er than or equal to 200 mg/dLsuggests DIABETES MELLITUS per A.D.A. criteria. Neutrophils (Bld) [#/Vol] 5.4 10*3/uL 2.0-7.7 [facility] Neutrophils/100 WBC (Bld) 53.2 % 47-70 [facility] Potassium [Moles/Vol] 4.0 mmol/L 3.5-5.1 [facility] Protein [Mass/Vol] 6.8 g/dL 6.4-8.2 [facility] Sodium [Moles/Vol] 137 mmol/L 136-145 [facility] Triglyceride [Mass/Vol] 117 mg/dL <199 [facility] Comment on above: The drugs N-Acetylcy steine and Metamizole may falsely depress this assay.Serum Triglycerides Reference Interval Normal <150 mg/dL Borderline high 150 - 199 mg/dL High 200 - 499 mg/dL Very High > or = 500 mg/dL WBC (Bld) [#/Vol] 10.1 10*3/uL 4.4-11.0 [facility] Blood erythrocytes count (nu mber/volume)Ordered By: Dr. Cooley on 02-21-2023 RBC (Bld) [#/Vol] 4.56 10*6/uL 4.6-6.2 [facility] Blood hemoglobin measurement (mass/volume)Ordered By: Dr. Cooley on 02-21-2023 Hemoglobin (Bld) [Mass/Vol] 14.0 g/dL 13.0-16.5 [facility] Blood lymphocytes/100 leukoc ytesOrdered By: Dr. Cooley on 02-21-2023 Lymphocytes/100 WBC (Bld) 33.3 % 19-41 [facility] Blood monocytes/100 leukocyt esOrdered By: Dr. Cooley on 02-21-2023 Monocytes/100 WBC (Bld) 10.4 % 0-10 [facility] Blood platelet mean volumeOr dered By: Dr. Cooley on 02-21-2023 Platelet mean volume (Bld) [Entitic vol] 10.2 fL 6.2-12.0 [facility] Determination of erythrocyte mean corpuscular volume (MCV)Ordered By: Dr. Cooley on 02-21-2023 MCV (RBC) [Entitic vol] 92.5 fL 80-94 [facility] Hematocrit Auto (Bld) [Volum e fraction]Ordered By: Dr. Cooley on 02-21-2023 Hematocrit (Bld) [Volume fraction] 42.2 % 40-54 [facility] Laboratory - Chemistry and C hemistry - challengeOrdered By: Dr. Cooley on 02-21-2023 ALP [Catalytic activity/Vol] 68 U/L 45-117 [facility] ALT [Catalytic activity/Vol] 19 U/L 16-61 [facility] CO2 [Moles/Vol] 27.0 mmol/L 21.0-32.0 [facility] Globulin (S) [Mass/Vol] 3.4 g/dL 2.2-4.2 [facility] Magnesium [Mass/Vol] 1.9 mg/dL 1.6-2.6 [place] Urea nitrogen/Creatinine [Mass ratio] 27.1 mg/mg 10-20 [facility] Laboratory - Hematology and Cell countsOrdered By: Dr. Cooley on 02-21-2023 Erythrocyte distribution width (RBC) [Entitic vol] 47.2 fL 35.1-43.9 [facility] Erythrocyte distribution width (RBC) [Ratio] 14.0 % 11.6-14.6 [facility] Immature granulocytes/100 WBC (Bld) 0.900 % 0.0-0.9 [facility] Comment on above: IG% - Immature Granu locytes (promyelocytes, myelocytes and metamyelocytes) > 1% indicates that a LEFT SHIFT is Present. MCH (RBC) [Entitic mass] 30.7 pg 27.0-32.0 [facility] Nucleated RBC/100 WBC (Bld) [Ratio] 0 % 0-5 [facility] MCHC Auto (RBC) [Mass/Vol]Or dered By: Dr. Cooley on 02-21-2023 MCHC (RBC) [Mass/Vol] 33.2 g/dL 32-36 [facility] No Panel InformationOrdered By: Dr. Cooley on 02-21-2023 Estimated GFR (MDRD) Amer 93 mL/min >60 [facility] Comment on above: GFR Calc Estimated GFR (MDRD) Non-Af Amer 77 mL/min >60 [facility] Comment on above: Non- GFR Calc Thyroid Stimulating Hormone (TSH) 1.59 uIU/mL 0.358-3.74 [facility] Urine Microalbumin/Creatinine Ratio 10.3 mg/g CRE <30 [facility] Platelets bldOrdered By: Dr. Cooley on 02-21-2023 Platelets (Bld) [#/Vol] 330 10*3/uL 150-450 [facility] Serum or plasma albumin walt urement (mass/volume)Ordered By: Dr. Cooley on 02-21-2023 Albumin [Mass/Vol] 3.4 g/dL 3.2-5.0 [facility] Serum or plasma albumin/glob ulin mass ratioOrdered By: Dr. Cooley on 02-21-2023 Albumin/Globulin [Mass ratio] 1.0 {ratio} 0.9-2.4 [facility] Serum or plasma calcium walt urement (mass/volume)Ordered By: Dr. Cooley on 02-21-2023 Calcium [Mass/Vol] 9.1 mg/dL 8.5-10.1 [facility] Serum or plasma cholesterol in HDL measurement (mass/volume)Ordered By: Dr. Cooley on 02-21-2023 Cholesterol in HDL [Mass/Vol] 52 mg/dL >40 [facility] Comment on above: The drugs N-Acetylcy steine and Metamizole may falsely depress this assay. Reference Range HDL <40 mg/dL Low HDL Cholesterol HDL >or= 60 mg/dL High HDL Cholesterol Serum or plasma cholesterol in VLDL measurement (mass/volume)Ordered By: Dr. Cooley on 02-21-2023 Cholesterol in VLDL [Mass/Vol] 23 mg/dL 5-40 [facility] Serum or plasma creatinine m easurement (mass/volume)Ordered By: Dr. Cooley on 02-21-2023 Creatinine [Mass/Vol] 1.00 mg/dL 0.70-1.30 [facility] Comment on above: The validity of the calculated GFR & GFRAA in patients over 70 years has not been determined. Clinical correlation is essential. Serum or plasma low density lipoprotein (LDL) cholesterol measurement (mass/volume)Ordered By: Dr. Cooley on 02-21-2023 Cholesterol in LDL [Mass/Vol] 58 mg/dL 0-130 [facility] Serum or plasma urea nitroge n measurement (mass/volume)Ordered By: Dr. Cooley on 02-21-2023 Urea nitrogen [Mass/Vol] 27 mg/dL 7-18 [facility] Thin prep Papanicolaou smear with manual screeningOrdered By: Dr. Cooley on 02-21-2023 Thin prep Papanicolaou smear with manual screening 9 U/L 15-37 [facility] Thin prep Papanicolaou smear with manual screening 6 5-15 [facility] Thin prep Papanicolaou smear with manual screening 11.9 mg/L NO RANGE EST. [facility] Urine creatinine measurement (mass/volume)Ordered By: Dr. Cooley on 02-21-2023 Creatinine (U) [Mass/Vol] 115.00 mg/dL NO RANGE EST. [facility] Whole blood hemoglobin A1c/t otal hemoglobin ratio (mass fraction)Ordered By: Dr. Cooley on 02-21-2023 HbA1c (Bld) [Mass fraction] 6.4 % 3.8-5.6 [facility] Comment on above: Normal < 5.7 % Predi abetic 5.7 - 6.4 % Diabetic >or= 6.5 % Please note range changes. Anabelle 02-14-2023 JUMA Telephone (NIKOS) KEVIN GRIFFITH ([id number]) 1945 M Date Time Provider Department 02/14/23 [...] is very concerned. Please call her at [phone]. Raeann Harrison RN 02/14/2023 3:05 PM Signed Received voicemail from patients' on Mon02/14/2023 2:28 PM Transcript below: This is Brennen Griffith. My phone number is [phone]. I'm calling for my Kevin Griffith. His [...] really bad or it's gonna be a shelter and I don't wanna do that so [...] issues/ action needed at this time. YVONNE aNik, RN February 15, 2023 9:58 AM Seven [...] mg tablet (more content not included)... Normal [facility] CNPNon 01-10-2023 CNPN Telephone (TOANMDN) NACHOKEVIN Khushbu ([id number]) 1945 M Date Time Provider Department 01/10/23 JAYLYN NIEVES During your visit today, we recorded the following information about you: Grace Sibley RN 01/10/2023 4:24 PM Signed Voicemail received January 10, 2023 [id number] My name is Brennen Griffith. My phone number is [phone]. My 's name is Kevin Griffith. He [...] is Brennen Griffith. My phone number is [phone]. This is in regard to Kevin Griffith. [...] 50 MCG, 2,000 UNIT, GUMMIES) - fluticasone [id number] lanterol (TRELEGY ELLIPTA) 200-62.5-25 mcg powder inhaler [...] Status:Closed by KAREN PARRA on 01/13/23 [facility] percentageOrdered B y: Dr. Gregory on 01-04-2023 Chloride [Moles/Vol] 106 mmol/L 98-107 [place] Cholesterol [Mass/Vol] 139 mg/dL <200 [facility] Comment on above: <200 mg/dL Desirable 200-240 mg/dL Borderline >240 mg/dL High Risk Glucose [Mass/Vol] 55 mg/dL 74-106 [facility] Potassium [Moles/Vol] 3.9 mmol/L 3.5-5.1 [facility] Sodium [Moles/Vol] 143 mmol/L 136-145 [facility] Triglyceride [Mass/Vol] 133 mg/dL <199 [facility] Comment on above: The drugs N-Acetylcy steine and Metamizole may falsely depress this assay.Serum Triglycerides Reference Interval Normal <150 mg/dL Borderline high 150 - 199 mg/dL High 200 - 499 mg/dL Very High > or = 500 mg/dL Laboratory - Chemistry and C hemistry - challengeOrdered By: Dr. Gregory on 01-04-2023 ALT [Catalytic activity/Vol] 12 U/L 16-61 [facility] CO2 [Moles/Vol] 27.0 mmol/L 21.0-32.0 [facility] Urea nitrogen/Creatinine [Mass ratio] 25.1 mg/mg 10-20 [facility] No Panel InformationOrdered By: Dr. Gregory on 01-04-2023 Estimated GFR (MDRD) Amer 98 mL/min >60 [facility] Comment on above: GFR Calc Estimated GFR (MDRD) Non-Af Amer 81 mL/min >60 [facility] Comment on above: Non- GFR Calc Serum or plasma calcium walt urement (mass/volume)Ordered By: Dr. Gregory on 01-04-2023 Calcium [Mass/Vol] 8.9 mg/dL 8.5-10.1 [facility] Serum or plasma cholesterol in HDL measurement (mass/volume)Ordered By: Dr. Gregory on 01-04-2023 Cholesterol in HDL [Mass/Vol] 44 mg/dL >40 [facility] Comment on above: The drugs N-Acetylcy steine and Metamizole may falsely depress this assay. Reference Range HDL <40 mg/dL Low HDL Cholesterol HDL >or= 60 mg/dL High HDL Cholesterol Serum or plasma cholesterol in VLDL measurement (mass/volume)Ordered By: Dr. Gregory on 01-04-2023 Cholesterol in VLDL [Mass/Vol] 27 mg/dL 5-40 [facility] Serum or plasma creatinine m easurement (mass/volume)Ordered By: Dr. Gregory on 01-04-2023 Creatinine [Mass/Vol] 0.96 mg/dL 0.70-1.30 [facility] Comment on above: The validity of the calculated GFR & GFRAA in patients over 70 years has not been determined. Clinical correlation is essential. Serum or plasma low density lipoprotein (LDL) cholesterol measurement (mass/volume)Ordered By: Dr. Gregory on 01-04-2023 Cholesterol in LDL [Mass/Vol] 68 mg/dL 0-130 [facility] Serum or plasma urea nitroge n measurement (mass/volume)Ordered By: Dr. Gregory on 01-04-2023 Urea nitrogen [Mass/Vol] 24 mg/dL 7-18 [facility] Thin prep Papanicolaou smear with manual screeningOrdered By: Dr. Gregory on 01-04-2023 Thin prep Papanicolaou smear with manual screening 16 U/L 15-37 [facility] Thin prep Papanicolaou smear with manual screening 10 5-15 [facility] Whole blood hemoglobin A1c/t otal hemoglobin ratio (mass fraction)Ordered By: Dr. Gregory on 01-04-2023 HbA1c (Bld) [Mass fraction] 6.3 % 3.8-5.6 [facility] Comment on above: Normal < 5.7 % Predi abetic 5.7 - 6.4 % Diabetic >or= 6.5 % Please note range changes. CNOVon 12-12-2022 CNOV Office Visit (NRMDN) KEVIN GRIFFITH ([id number]) 1945 M Date Time Provider Department 12/12/22 2:00 PM LENI RUIZ During your visit today, we recorded the following information about you: Weight Height 118.3 kg 1.778 m Leni Ruiz APRN.FRANCHISE MANAGER 12/13/2022 10:48 PM Signed [facility] - FOLLOW UP EVALUATION Ron Cooley MD [address] [facility] [address] Dear Ron Cooley MD: I had the [...] Flowsheet Row OT/PT/Speech Visit from 10/04/2022 in [facility] Outpatient [facility] Therapy OT/PT/Speech Visit from 08/25/2022 in [facility] Outpatient Physical Therapy Global Physical [...] Current [facility] (more content not included)... [facility] Telephone (NRMDN) NACHOKEVIN Ríos ([id number]) 1945 M Date Time Provider Department 10/10/22 JAYLYN NIEVES During your visit today, we recorded the following information about you: Seven Harrison RN 10/10/2022 2:45 PM Signed Received voicemail from patient on Mon10/10/2022 9:09 AM Transcript below: Morning this is Kevin Griffith and my phone number is [phone]. I calling to find out if there's [...] Voicemail left directing patient to a detailed HealthLoop message. Requested reply via MC or RCTO. [...] tablet by mouth twice daily. - fluticasone kwnzxav-mffkpmewvmjz-gn lanterol (TRELEGY ELLIPTA) 200-62.5-25 mcg powder inhaler [...] Status:Closed by SEVEN HARRISON on 10/10/22 Normal [facility] CNTHERAPYon 10-04-2022 CNTHERAPY OT/PT/Speech Visit (PTMDRG) KEVIN GRIFFITH ([id number]) 1945 M Date Time Provider Department 10/04/22 11:30 AM KORI RYDER Date Time Provider Department Center 10/04/2022 11:30 AM [id number] RYDER [facility] Reason for Visit: Physical [...] 50 mg tablet - [facility] Inhale as instructed. - FREESTYLE [...] 50 MCG, 2,000 UNIT, GUMMIES) - fluticasone adifeeh-xpzlmnwcxxdp-mw lanterol (TRELEGY ELLIPTA) 200-62.5-25 mcg powder inhaler [...] 80 mg by mouth once daily. Normal [facility] Basophil percentageOrdered B y: Dr. Gregory on 09-16-2022 Chloride [Moles/Vol] 105 mmol/L 98-107 [place] Glucose [Mass/Vol] 142 mg/dL 74-106 [facility] Comment on above: Fasting Glucose resu lt greater than or equal to 126 mg/dL suggests DIABETES MELLITUS per A.D.A. criteria. Potassium [Moles/Vol] 3.8 mmol/L 3.5-5.1 [facility] Sodium [Moles/Vol] 137 mmol/L 136-145 [facility] Laboratory - Chemistry and C hemistry - challengeOrdered By: Dr. Gregory on 09-16-2022 ALT [Catalytic activity/Vol] 13 U/L 16-61 [facility] CO2 [Moles/Vol] 24.0 mmol/L 21.0-32.0 [facility] Urea nitrogen/Creatinine [Mass ratio] 24.0 mg/mg 10-20 [facility] No Panel InformationOrdered By: Dr. Gregory on 09-16-2022 Estimated GFR (MDRD) Amer 89 mL/min >60 [facility] Comment on above: GFR Calc Estimated GFR (MDRD) Non-Af Amer 73 mL/min >60 [facility] Comment on above: Non- GFR Calc Thyroid Stimulating Hormone (TSH) 1.71 uIU/mL 0.358-3.74 [facility] Serum or plasma calcium walt urement (mass/volume)Ordered By: Dr. Gregory on 09-16-2022 Calcium [Mass/Vol] 9.4 mg/dL 8.5-10.1 [facility] Serum or plasma creatinine m easurement (mass/volume)Ordered By: Dr. Gregory on 09-16-2022 Creatinine [Mass/Vol] 1.04 mg/dL 0.70-1.30 [facility] Comment on above: The validity of the calculated GFR & GFRAA in patients over 70 years has not been determined. Clinical correlation is essential. Serum or plasma urea nitroge n measurement (mass/volume)Ordered By: Dr. Gregory on 09-16-2022 Urea nitrogen [Mass/Vol] 25 mg/dL 7-18 [facility] Thin prep Papanicolaou smear with manual screeningOrdered By: Dr. Gregory on 09-16-2022 Thin prep Papanicolaou smear with manual screening 13 U/L 15-37 [facility] Thin prep Papanicolaou smear with manual screening 8 5-15 [facility] Whole blood hemoglobin A1c/t otal hemoglobin ratio (mass fraction)Ordered By: Dr. Gregory on 09-16-2022 HbA1c (Bld) [Mass fraction] 6.5 % 3.8-5.6 [facility] Comment on above: Normal < 5.7 % Predi abetic 5.7 - 6.4 % Diabetic >or= 6.5 % Please note range changes. CNTHERAPYon 09-15-2022 CNTHERAPY OT/PT/Speech Visit (PTMDRG) KEVIN GRIFFITH ([id number]) 1945 M Date Time Provider Department 09/15/22 4:00 PM KORI RYDER Date Time Provider Department Center 09/15/2022 4:00 PM [id number] RYDER [facility] Reason for Visit: Physical [...] tablet by mouth twice daily. - fluticasone yndxevz-cpfpalxnykmk-aa lanterol (TRELEGY ELLIPTA) 200-62.5-25 mcg powder inhaler [...] mg by mouth once daily. [facility] 09-12-2022 [place] Telephone (NREUS2) KEVIN GRIFFITH ([id number]) 1945 M Date Time Provider Department 09/12/22 JAYLYN NIEVES NRDILIPS2 During your visit today, we recorded the following information about you: Lena Gallo [facility] 09/12/2022 2:37 PM Signed NI PHONE NAME OF CALLER: Brennen RELATIONSHIP TO PATIENT: spouse PATIENT ID'D BY NAME/: yes REASON FOR CALL: States that his PD symptoms are worsening and she would like to speak with Stefania. CALLBACK #: [phone] OK TO LEAVE MESSAGE: ok only on this number - do not leave at home number LAST FUV: 08/04/22 with CAR Harrison, RN 09/13/2022 12:32 PM Signed Returned call to [place]. No reply, left detailed message requesting RCTO. [...] for RCTO and option to message via HealthLoop. YVONNE Naik, RN September 16, 2022 8:48 [...] mg tablet (more content not included)... Normal [facility] CNTHERAPYon 08-25-2022 CNTHERAPY OT/PT/Speech Visit (PTMDRG) KEVIN GRIFFITH ([id number]) 1945 M Date Time Provider Department 08/25/22 5:30 PM KORI RYDER Date Time Provider Department Center 08/25/2022 5:30 PM [id number] RYDER [facility] Reason for Visit: Physical [...] tablet by mouth twice daily. - fluticasone bgpouya-whtjsbpljcwu-wp lanterol (TRELEGY ELLIPTA) 200-62.5-25 mcg powder inhaler [...] Take 80 mg by mouth once daily. [facility] CNTHERAPYon 08-11-2022 CNTHERAPY OT/PT/Speech Visit (PTMDRG) KEVIN GRIFFITH ([id number]) 1945 M Date Time Provider Department 08/11/22 1:00 PM KORI RYDERLluvia Date Time Provider Department [place] 08/11/2022 1:00 PM [id number] RYDERLluvia [facility] Reason for Visit: PT [...] tablet by mouth twice daily. - fluticasone bkutzbd-wwchbehxtjju-kb lanterol (TRELEGY ELLIPTA) 200-62.5-25 mcg powder inhaler [...] 80 mg by mouth once daily. [facility] 08-04-2022 CN Office Visit (NRMDN) KEVIN GRIFFITH ([id number]) 1945 M Date Time Provider Department 08/04/22 2:00 PM JAYLYN NIEVES During your visit today, we recorded the following information about you: Pulse Respiration Blood pressure 107/minute 16/minute 109/86 Jaylyn Nieves MD 08/04/2022 5:35 PM Signed [facility] - FOLLOW UP EVALUATION Ron Cooley MD [address] [facility] [address] [facility] [address] I had the pleasure of seeing Mr. [...] 1 tablet by mouth twice daily. fluticasone sysltnd-anqyagzbahdk-kh lanterol (TRELEGY ELLIPTA) 200-62.5-25 mcg powder inhaler Inhale 1 Puff as instructed once daily. aspirin, enteric coated (ASPIRIN, ENTERIC COATED) 81 mg EC tablet Take 81 mg by mouth once daily. tamsulosin (FLOMAX) 0.4 mg Take 0.4 m (more content not included)... Normal [facility] No Panel Informationon 08-01 Prostate Specific Antigen Screen 5.11 ng/mL 0.00-4.00 [facility] Work Phone: Comment on above: This test was perfor med using the TPSA assay method for [employer] system. Values obtained with differentassay methods cannot be used interchangably.When changing PSA assays in the course of monitoring apatient, additional sequential testing should be carriedout to confirm baseline values. Anabelle 07-21-2022 JUMA Telephone (NRSEAN) LAINEYKEVIN WEEMS ([id number]) 1945 M Date Time Provider Department 07/21/22 JAYLYN NIEVES During your visit today, we recorded the following information about you: Seven Harrison RN 07/21/2022 1:09 PM Signed Received voicemail from patient's on [place] 07/21/2022 10:52 AM Transcript below: Kaila my name is Brennen Griffith. My 's name is Kevin Griffith. He is a patient of Dr. Gordillo. My phone number is [phone]. I'm calling to speak to somebody regarding [...] Updates shared with MD CAR AND JANY ADVERTISING ACCOUNT MANAGER. If any guidance is suggested, RN will [...] Status:Closed by SEVEN HARRISON on 07/21/22 Normal [facility] No Panel Informationon 06-21 Urine Microalbumin/Creatinine Ratio 12.4 mg/g CRE <30 [facility] Work Phone: Thin prep Papanicolaou smear with manual screeningon 06-21-2022 Thin prep Papanicolaou smear with manual screening 17.8 mg/L NO RANGE EST. [facility] Work Phone: Urine creatinine measurement (mass/volume)on 06-21-2022 Creatinine (U) [Mass/Vol] 144.00 mg/dL NO RANGE EST. [facility] Work Phone: Basophil percentageon 2021 Chloride [Moles/Vol] 102 mmol/L 98-107 [place] Work Phone: Cholesterol [Mass/Vol] 140 mg/dL <200 [facility] Work Phone: Comment on above: <200 mg/dL Desirable 200-240 mg/dL Borderline >240 mg/dL High Risk Glucose [Mass/Vol] 224 mg/dL 74-106 [facility] Work Phone: Comment on above: Glucose result great er than or equal to 200 mg/dLsuggests DIABETES MELLITUS per A.D.A. criteria. Potassium [Moles/Vol] 3.9 mmol/L 3.5-5.1 [facility] Work Phone: Sodium [Moles/Vol] 137 mmol/L 136-145 [facility] Work Phone: Triglyceride [Mass/Vol] 161 mg/dL <199 [facility] Work Phone: Comment on above: The drugs N-Acetylcy steine and Metamizole may falsely depress this assay.Serum Triglycerides Reference Interval Normal <150 mg/dL Borderline high 150 - 199 mg/dL High 200 - 499 mg/dL Very High > or = 500 mg/dL Laboratory - Chemistry and C hemistry - challengeon 06-20-2022 ALT [Catalytic activity/Vol] 21 U/L 16-61 [facility] Work Phone: CO2 [Moles/Vol] 29.0 mmol/L 21.0-32.0 [facility] Work Phone: Urea nitrogen/Creatinine [Mass ratio] 21.7 mg/mg 10-20 [facility] Work Phone: No Panel Informationon 06-20 Estimated GFR (MDRD) Amer 75 mL/min >60 [facility] Work Phone: Comment on above: GFR Calc Estimated GFR (MDRD) Non-Af Amer 62 mL/min >60 [facility] Work Phone: Comment on above: Non- GFR Calc Serum or plasma calcium walt urement (mass/volume)on 06-20-2022 Calcium [Mass/Vol] 8.8 mg/dL 8.5-10.1 [facility] Work Phone: Serum or plasma cholesterol in HDL measurement (mass/volume)on 06-20-2022 Cholesterol in HDL [Mass/Vol] 47 mg/dL >40 [facility] Work Phone: [phone] Comment on above: The drugs N-Acetylcy steine and Metamizole may falsely depress this assay. Reference Range HDL <40 mg/dL Low HDL Cholesterol HDL >or= 60 mg/dL High HDL Cholesterol Serum or plasma cholesterol in VLDL measurement (mass/volume)on 06-20-2022 Cholesterol in VLDL [Mass/Vol] 32 mg/dL 5-40 [facility] Work Phone: Serum or plasma creatinine m easurement (mass/volume)on 06-20-2022 Creatinine [Mass/Vol] 1.20 mg/dL 0.70-1.30 [facility] Work Phone: Comment on above: The validity of the calculated GFR & GFRAA in patients over 70 years has not been determined. Clinical correlation is essential. Serum or plasma low density lipoprotein (LDL) cholesterol measurement (mass/volume)on 06-20-2022 Cholesterol in LDL [Mass/Vol] 61 mg/dL 0-130 [facility] Work Phone: Serum or plasma urea nitroge n measurement (mass/volume)on 06-20-2022 Urea nitrogen [Mass/Vol] 26 mg/dL 7-18 [facility] Work Phone: Thin prep Papanicolaou smear with manual screeningon 06-20-2022 Thin prep Papanicolaou smear with manual screening 17 U/L 15-37 [facility] Work Phone: Thin prep Papanicolaou smear with manual screening 6 5-15 [facility] Work Phone: Whole blood hemoglobin A1c/t otal hemoglobin ratio (mass fraction)on 06-20-2022 HbA1c (Bld) [Mass fraction] 6.7 % 3.8-5.6 [facility] Work Phone: Comment on above: Normal < 5.7 % Predi abetic 5.7 - 6.4 % Diabetic >or= 6.5 % Please note range changes. Absolute lymphocyte counton 04-25-2022 Lymphocytes Auto (Unsp spec) [#/Vol] 3.24 10*3/uL 0.83-4.51 [facility] Work Phone: [phone] Basophil percentageon 04-25- 2021 Basophil percentage 0-5 SEEN /hpf 0-5 [facility] Work Phone: Basophils/100 WBC (Bld) 1.2 % 0-1 [facility] Work Phone: Bilirubin [Mass/Vol] 0.70 mg/dL 0.20-1.00 [place] Work Phone: Comment on above: For patients on eltr ombopag therapy, use of Dimension [place] TBIL is not recommended. Chloride [Moles/Vol] 103 mmol/L 98-107 [place] Work Phone: [phone] Cholesterol [Mass/Vol] 138 mg/dL <200 [facility] Work Phone: Comment on above: <200 mg/dL Desirable 200-240 mg/dL Borderline >240 mg/dL High Risk Eosinophils/100 WBC (Bld) 2.6 % 0-5 [facility] Work Phone: Glucose [Mass/Vol] 168 mg/dL 74-106 [facility] Work Phone: Comment on above: Fasting Glucose resu lt greater than or equal to 126 mg/dL suggests DIABETES MELLITUS per A.D.A. criteria. Neutrophils (Bld) [#/Vol] 4.2 10*3/uL 2.0-7.7 [facility] Work Phone: Neutrophils/100 WBC (Bld) 46.5 % 47-70 [facility] Work Phone: Potassium [Moles/Vol] 3.9 mmol/L 3.5-5.1 [facility] Work Phone: Protein [Mass/Vol] 7.3 g/dL 6.4-8.2 [facility] Work Phone: Sodium [Moles/Vol] 137 mmol/L 136-145 [facility] Work Phone: Triglyceride [Mass/Vol] 193 mg/dL <199 [facility] Work Phone: Comment on above: The drugs N-Acetylcy steine and Metamizole may falsely depress this assay.Serum Triglycerides Reference Interval Normal <150 mg/dL Borderline high 150 - 199 mg/dL High 200 - 499 mg/dL Very High > or = 500 mg/dL WBC (Bld) [#/Vol] 8.9 10*3/uL 4.4-11.0 [facility] Work Phone: Bilirubin Test strip Ql (U)o n 04-25-2022 Bilirubin Ql (U) Negative Negative [facility] Work Phone: Blood erythrocytes count (nu mber/volume)on 04-25-2022 RBC (Bld) [#/Vol] 4.66 10*6/uL 4.6-6.2 [facility] Work Phone: Blood hemoglobin measurement (mass/volume)on 04-25-2022 Hemoglobin (Bld) [Mass/Vol] 14.6 g/dL 13.0-16.5 [facility] Work Phone: Blood lymphocytes/100 leukoc yteson 04-25-2022 Lymphocytes/100 WBC (Bld) 36.4 % 19-41 [facility] Work Phone: Blood monocytes/100 leukocyt eson 04-25-2022 Monocytes/100 WBC (Bld) 12.6 % 0-10 [facility] Work Phone: Blood platelet mean volumeon 04-25-2022 Platelet mean volume (Bld) [Entitic vol] 10.1 fL 6.2-12.0 [facility] Work Phone: Determination of erythrocyte mean corpuscular volume (MCV)on 04-25-2022 MCV (RBC) [Entitic vol] 93.3 fL 80-94 [facility] Work Phone: Hematocrit Auto (Bld) [Volum e fraction]on 04-25-2022 Hematocrit (Bld) [Volume fraction] 43.5 % 40-54 [facility] Work Phone: Ketones Test strip Ql (U)on 04-25-2022 Ketones Ql (U) 5 mg/dl Negative [facility] Work Phone: Laboratory - Chemistry and C hemistry - challengeon 04-25-2022 ALP [Catalytic activity/Vol] 62 U/L 45-117 [facility] Work Phone: ALT [Catalytic activity/Vol] 25 U/L 16-61 [facility] Work Phone: CO2 [Moles/Vol] 25.0 mmol/L 21.0-32.0 [facility] Work Phone: Cobalamin (Vitamin B12) [Mass/Vol] 1930 pg/mL 211-911 [facility] Work Phone: Globulin (S) [Mass/Vol] 3.6 g/dL 2.2-4.2 [facility] Work Phone: Urea nitrogen/Creatinine [Mass ratio] 19.8 mg/mg 10-20 [facility] Work Phone: Laboratory - Hematology and Cell countson 04-25-2022 Erythrocyte distribution width (RBC) [Entitic vol] 46.3 fL 35.1-43.9 [facility] Work Phone: Erythrocyte distribution width (RBC) [Ratio] 13.6 % 11.6-14.6 [facility] Work Phone: Immature granulocytes/100 WBC (Bld) 0.700 % 0.0-0.9 [facility] Work Phone: Comment on above: IG% - Immature Granu locytes (promyelocytes, myelocytes and metamyelocytes) > 1% indicates that a LEFT SHIFT is Present. MCH (RBC) [Entitic mass] 31.3 pg 27.0-32.0 [facility] Work Phone: Nucleated RBC/100 WBC (Bld) [Ratio] 0 % 0-5 [facility] Work Phone: MCHC Auto (RBC) [Mass/Vol]on 04-25-2022 MCHC (RBC) [Mass/Vol] 33.6 g/dL 32-36 [facility] Work Phone: Mucus LM Ql (Urine sed)on Mucus Ql (Urine sed) 0 SEEN /hpf [facility] Work Phone: Nitrite Test strip Ql (U)on 04-25-2022 Nitrite Ql (U) Negative Negative [facility] Work Phone: No Panel Informationon 04-25 Estimated GFR (MDRD) Amer 87 mL/min >60 [facility] Work Phone: Comment on above: GFR Calc Estimated GFR (MDRD) Non-Af Amer 72 mL/min >60 [facility] Work Phone: Comment on above: Non- GFR Calc Thyroid Stimulating Hormone (TSH) 2.14 uIU/mL 0.358-3.74 [facility] Work Phone: Vitamin D 25-Hydroxy 59.3 ng/mL [place] Work Phone: Comment on above: Vitamin D 25(OH) Sta tus Range Deficiency <20 ng/mL (50nmol/L) Insufficiency 20 - 30 ng/mL (50 - 75 nmol/L) Sufficiency 30 - 100 ng/mL (75 - 250 nmol/L) Toxicity >100 ng/mL (>250 nmol/L) Platelets bldon 04-25-2022 Platelets (Bld) [#/Vol] 264 10*3/uL 150-450 [facility] Work Phone: Protein Test strip Ql (U)on 04-25-2022 Protein Ql (U) Negative Negative [facility] Work Phone: Serum or plasma albumin walt urement (mass/volume)on 04-25-2022 Albumin [Mass/Vol] 3.7 g/dL 3.2-5.0 [facility] Work Phone: Serum or plasma albumin/glob ulin mass ratioon 04-25-2022 Albumin/Globulin [Mass ratio] 1.0 {ratio} 0.9-2.4 [facility] Work Phone: Serum or plasma calcium walt urement (mass/volume)on 04-25-2022 Calcium [Mass/Vol] 9.1 mg/dL 8.5-10.1 [facility] Work Phone: Serum or plasma cholesterol in HDL measurement (mass/volume)on 04-25-2022 Cholesterol in HDL [Mass/Vol] 43 mg/dL >40 [facility] Work Phone: Comment on above: The drugs N-Acetylcy steine and Metamizole may falsely depress this assay. Reference Range HDL <40 mg/dL Low HDL Cholesterol HDL >or= 60 mg/dL High HDL Cholesterol Serum or plasma cholesterol in VLDL measurement (mass/volume)on 04-25-2022 Cholesterol in VLDL [Mass/Vol] 39 mg/dL 5-40 [facility] Work Phone: Serum or plasma creatinine m easurement (mass/volume)on 04-25-2022 Creatinine [Mass/Vol] 1.06 mg/dL 0.70-1.30 [facility] Work Phone: Comment on above: The validity of the calculated GFR & GFRAA in patients over 70 years has not been determined. Clinical correlation is essential. Serum or plasma folate measu rement (mass/volume)on 04-25-2022 Folate [Mass/Vol] 13.80 ng/mL 3.1-55.4 [facility] Work Phone: Comment on above: Slight Hemolysis, Re sult may be falsely increased. Serum or plasma low density lipoprotein (LDL) cholesterol measurement (mass/volume)on 04-25-2022 Cholesterol in LDL [Mass/Vol] 56 mg/dL 0-130 [facility] Work Phone: Serum or plasma urea nitroge n measurement (mass/volume)on 04-25-2022 Urea nitrogen [Mass/Vol] 21 mg/dL 7-18 [facility] Work Phone: Squamous epithelial cells de tection in urine sediment by light microscopyon 04-25-2022 Epithelial cells.squamous LM Ql (Urine sed) 0 SEEN /hpf 0-5 [facility] Work Phone: Thin prep Papanicolaou smear with manual screeningon 04-25-2022 Thin prep Papanicolaou smear with manual screening 17 U/L 15-37 [facility] Work Phone: Thin prep Papanicolaou smear with manual screening 9 5-15 [facility] Work Phone: Urine blood detectionon 06-0 RBC Ql (U) Negative Negative [facility] Work Phone: RBC Ql (U) 0-5 SEEN /hpf 0-5 [facility] Work Phone: Urine clarityon 04-25-2022 Clarity (U) Clear Clear [facility] Work Phone: Urine color determinationon 04-25-2022 Color (U) Yellow Yellow [facility] Work Phone: Urine glucose detectionon Glucose Ql (U) Normal mg/dl Normal [facility] Work Phone: Urine leukocyte esterase det ection by dipstickon 04-25-2022 Leukocyte esterase Test strip Ql (U) Negative Negative [facility] Work Phone: Urine pHon 04-25-2022 pH (U) 6.0 [pH] 5.0 - 8.0 [facility] Work Phone: Urine sediment bacteria coun t by microscopy (number/high power field)on 04-25-2022 Bacteria LM.HPF (Urine sed) [#/Area] RARE /hpf None Seen [facility] Work Phone: Urine specific gravity measu rementon 04-25-2022 Specific gravity (U) [Rel density] 1.020 1.002-1.030 [facility] Work Phone: Urobilinogen Auto test strip Ql (U)on 04-25-2022 Urobilinogen Ql (U) 4 mg/dl Normal [facility] Work Phone: Whole blood hemoglobin A1c/t otal hemoglobin ratio (mass fraction)on 04-25-2022 HbA1c (Bld) [Mass fraction] 6.6 % 3.8-5.6 [facility] Work Phone: Comment on above: Normal < 5.7 % Predi abetic 5.7 - 6.4 % Diabetic >or= 6.5 % Please note range changes. Laboratory - Drug toxicology on 04-07-2022 Amphetamines Ql (U) Negative <1000 ng[facility]: Benzodiazepines Ql (U) Negative < 200 ng/mL [facility] Work Phone: Cannabinoids Screen Ql (U) Negative < 50 ng/mL [facility] Work Phone: Cocaine Ql (U) Negative < 300 ng/mL [facility] Work Phone: Opiates Ql (U) Negative < 300 ng/mL [facility] Work Phone: No Panel Informationon 04-07 MDMA (Ecstasy) Screen Negative < 500 ng/mL [facility] Work Phone: Miscellaneous Test See comment [facility] Work Phone: Comment on above: [id number] 6+OXYCODONE-B UND (ng/mL) DRUG RESULT SCREEN CUTOFF____ Amphetamines,Urine Negative ng/mL 1000 Amphetamine test includes Amphetamine and Methamphetamine.Barbiturates Negative ng/mL 200Benzodiazepines Negative ng/mL 200Cannabinoid Negative ng/mL 20Cocaine (Metab) Negative ng/mL 300Opiates Negative ng/mL 300 Opiates test includes Codeine, Morphine, Hydromorphone, Hydrocodone. Oxycodone/Oxymorphone,Urine Positive ng/mL 300 Test includes Oxydodone and Oxymorphone. Oxycodone PositiveOxycodone Conf,MS,UR 666 ng/mL 300 Oxymorphone Negative 300 TESTING PERFORMED AT [facility]. ORIGINAL REPORT ON FILE IN LAB CONTAINS ADDITIONAL TEST SITE INFORMATION. Urine Barbiturates Screen Negative < 200 ng/m L [facility] Work Phone: Urine Drug Screen Comment [facility] Work Phone: Comment on above: CONFIRMATORY [...] Urine Methadone Screen Negative < 300 ng/mL [facility] Work Phone: Urine phencyclidine (PCP) de tectionon 04-07-2022 Phencyclidine Ql (U) Negative < 25 ng/mL [place] Work Phone: CNOVon 03-29-2022 CNOV Office Visit (SPEMML ) KEVIN GRIFFITH ([id number]) 1945 M Date Time Provider Department 03/29/22 [...] by Name and Date of : Yes [facility] SPEECH and [...] position 20-30 minutes following all oral intake DOCTORATE OF CHIROPRACTIC Recommendations: Swallowing Precautions;Discontinue Speech Therapy Results and [...] MBS (pt reports had MBS done at [place] last year, which pt was told 'he did fine' and no recommendations for follow up ST or diet modifications made) Clinical Swallow [facility] Swallow Protocol: Fail Fail: Coughing episodes (x1 throat clear delayed post trial of water) Oral Pharyngeal Swallow Assessment: Within Functional Limits Except Preparatory / Oral Phase: Within Functional Limits Except Mastication: (pt with close attention to mastication-requires extended time) A-P Transit: Suspect impairment Oral Residue: Mildly Impaired Pharyng (more content not included)... Normal [facility] Office Visit (NRMDN) KEVIN GRIFFITH ([id number]) 1945 M Date Time Provider Department 03/29/22 12:30 PM JAYLYN NIEVES During your visit today, we recorded the following information about you: Jaylyn Nieves MD 03/29/2022 7:35 PM Signed [facility] Jaylyn Nieves [address] [facility] [address] Ron Cooley MD [address] [facility] [address] I had the pleasure of seeing Mr. 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 Started on Sinemet which caused side effects at 6/day. At last visit we tried to taper off it but he experiences return of tremors and confusion at dose of 3/day. Will increase Sinemet (more content not included)... Normal [facility] CNTHERAPYon 03-29-2022 CNTHERAPY OT/PT/Speech Visit (PTMDRG) KEVIN GRIFFITH ([id number]) 1945 M Date Time Provider Department 03/29/22 3:30 PM MAINE MEDEL PTMDRG Date Time Provider Department Center 03/29/2022 3:30 PM [id number] MEDEL PTMDRG [facility] Reason for Visit: PT [...] Take 80 mg by mouth once daily. [facility] CNTHERAPY OT/PT/Speech Visit ([facility]) KEVIN GRIFFITH ([id number]) 1945 M Date Time Provider Department 03/29/22 2:30 PM HEENA ROMANO [facility] Date Time Provider Department Center 03/29/2022 2:30 PM [id number], HEENA [facility] Reason for Visit: OT EVAL [748] [...] mg by mouth once daily. [facility] KEVIN GRIFFITH ([id number]) 1945 M Date Time Provider Department 03/23/22 [facility] NIEVES [facility] During your visit today, we recorded the [...] Encounter Status:Closed by BRYANNA HAAS on 03/23/22 [facility] Traci 03-17-2022 CNOV Office Visit (NRMDN) KEVIN GRIFFITH ([id number]) 1945 M Date Time Provider Department 03/17/22 3:00 PM JAYLYN NIEVES During your visit today, we recorded the following information about you: Pulse Blood pressure Weight Height 101/minute 120/77 125.8 kg 1.778 m Jaylyn Nieves MD 03/18/2022 4:12 PM Signed [facility] - FOLLOW UP EVALUATION No referring provider defined for this encounter. Ron Cooley MD [address] [facility] [address] I had the pleasure of seeing Mr. [...] to be helpful Interval History Seen at [facility] for surgical evaluation. SDR was too [...] is be (more content not included)... Normal [facility] Basophil percentageon 2021 Chloride [Moles/Vol] 105 mmol/L 98-107 [place] Work Phone: Glucose [Mass/Vol] 102 mg/dL 74-106 [facility] Work Phone: Comment on above: Fasting Glucose resu lt from 100 to 125 mg/dL suggests IMPAIRED HOMEOSTASIS per A.D.A. criteria. Potassium [Moles/Vol] 3.5 mmol/L 3.5-5.1 [facility] Work Phone: Sodium [Moles/Vol] 138 mmol/L 136-145 [facility] Work Phone: Laboratory - Chemistry and C hemistry - challengeon 03-10-2022 ALT [Catalytic activity/Vol] 21 U/L 16-61 [facility] Work Phone: CO2 [Moles/Vol] 26.0 mmol/L 21.0-32.0 [facility] Work Phone: Urea nitrogen/Creatinine [Mass ratio] 24.3 mg/mg 10-20 [facility] Work Phone: No Panel Informationon 03-10 Estimated GFR (MDRD) Amer 79 mL/min >60 [facility] Work Phone: Comment on above: GFR Calc Estimated GFR (MDRD) Non-Af Amer 65 mL/min >60 [facility] Work Phone: Comment on above: Non- GFR Calc Serum or plasma calcium walt urement (mass/volume)on 03-10-2022 Calcium [Mass/Vol] 8.8 mg/dL 8.5-10.1 [facility] r [facility] Work Phone: Serum or plasma creatinine m easurement (mass/volume)on 03-10-2022 Creatinine [Mass/Vol] 1.15 mg/dL 0.70-1.30 [facility] ster [facility] Work Phone: Comment on above: The validity of the calculated GFR & GFRAA in patients over 70 years has not been determined. Clinical correlation is essential. Serum or plasma urea nitroge n measurement (mass/volume)on 03-10-2022 Urea nitrogen [Mass/Vol] 28 mg/dL 7-18 [facility] Work Phone: Thin prep Papanicolaou smear with manual screeningon 03-10-2022 Thin prep Papanicolaou smear with manual screening 21 U/L 15-37 [facility] Work Phone: Thin prep Papanicolaou smear with manual screening 7 5-15 [facility] Work Phone: Whole blood hemoglobin A1c/t otal hemoglobin ratio (mass fraction)on 03-10-2022 HbA1c (Bld) [Mass fraction] 6.5 % 3.8-5.6 [facility] Work Phone: Comment on above: Normal [...] MonDec 15, 2021 5:24:44 PM EST Normal [facility] Comment on above: Order Comment: Injur y/Trauma or Illness?:Illness/Other How long have you had these symptoms (acute/chronic)?:Acute Reason for exam?:resting tremor, Tremor Type of Exam?:Initial Additional signs and symptoms?:n Basophil percentageon 2020 Chloride [Moles/Vol] 104 mmol/L 98-107 [place] Work Phone: Glucose [Mass/Vol] 148 mg/dL 74-106 [facility] Work Phone: Comment on above: Fasting Glucose resu lt greater than or equal to 126 mg/dL suggests DIABETES MELLITUS per A.D.A. criteria.Please note revised GLUCOSE reference range effective 2017. Potassium [Moles/Vol] 3.9 mmol/L 3.5-5.1 [facility] Work Phone: Sodium [Moles/Vol] 140 mmol/L 136-145 [facility] Work Phone: Laboratory - Chemistry and C hemistry - challengeon 11-15-2021 CO2 [Moles/Vol] 29.0 mmol/L 21.0-32.0 [facility] Work Phone: Urea nitrogen/Creatinine [Mass ratio] 18.5 mg/mg 10-20 [facility] Work Phone: No Panel Informationon 11-15 Estimated GFR (MDRD) Amer 85 mL/min >60 [facility] Work Phone: Comment on above: GFR Calc Estimated GFR (MDRD) Non-Af Amer 70 mL/min >60 [facility] Work Phone: Comment on above: Non- GFR Calc Serum or plasma calcium walt urement (mass/volume)on 11-15-2021 Calcium [Mass/Vol] 9.0 mg/dL 8.5-10.1 [facility] Work Phone: Serum or plasma creatinine m easurement (mass/volume)on 11-15-2021 Creatinine [Mass/Vol] 1.08 mg/dL 0.70-1.30 [facility] Work Phone: Comment on above: The validity of the calculated GFR & GFRAA in patients over 70 years has not been determined. Clinical correlation is essential. Serum or plasma urea nitroge n measurement (mass/volume)on 11-15-2021 Urea nitrogen [Mass/Vol] 20 mg/dL 7-18 [facility] Work Phone: Thin prep Papanicolaou smear with manual screeningon 11-15-2021 Thin prep Papanicolaou smear with manual screening 7 5-15 [facility] Work Phone: Whole blood hemoglobin A1c/t otal hemoglobin ratio (mass fraction)on 11-15-2021 HbA1c (Bld) [Mass fraction] 6.6 % 3.8-5.6 [facility] Work Phone: Comment on above: Normal [...] No other mass effect. Patent basal cisterns. [id number] symmetric global volume loss without lobar predominance. [...] MonNov 02, 2021 8:48:26 AM EST Normal [facility] Comment on above: Order Comment: Injur y/Trauma or Illness?:Illness/Other How long have you had these symptoms (acute/chronic)?:Acute Reason for exam?:trmors Type of Exam?:Initial Additional signs and symptoms?:HIFU protocol Glucose,Bedsideon 05-19-2021 Glucose [Mass/Vol] 137 mg/dL High 70-[address] [facility] [employer] Comment on above: Result Comment: Test performed by glucose meter. Results may be 10%-15% lower than serum/plasma values. (CLIA ID [id number]) Performed By: #### B GLU #### [employer] [address] [place] [id number] OPERATIVE REPORTOrdered By: 3m Scanning on 05-19-2021 [facility] Work Phone: POCT GlucoseOrdered By: Nii Altman on 05-19-2021 Glucose [Mass/Vol] 137 mg/dL High 70 - 100 mg/dL [facility] Work Phone: Comment on above: Test performed by gl ucose meter. Results may be 10%-15% lower than serum/plasma values. (CLIA ID [id number]) Interpretation and review of laboratory results Abnormal [facility] Work Phone: Test Performed by [facility], [address] [place] [id number] [facility] Work Phone: [facility] Work Phone: ECHO Pharmacological Stress TestOrdered By: Raeann Holland on 05-11-2021 STRESS ECHOCARDIOGRA M Dobutamine PATIENT: Kevin Griffith STUDY DATE: 05/11/2021 : 1945 AGE: 75 HT/WT: 177.8 cm (70 123.2 kg in) (271 lb) GENDER: M BP: 149 / 83 LOCATION: [facility] PATIENT Outpatient [facility] STATUS: Medical Center *ORDERING PHYSICIAN: * Amalia, *FELLOW: * Wes Montilla MD *SUPERVISING PHYSICIAN: * *RN: * Bessie Duarte Diana *READING PHYSICIAN: * Donnell Valdes MD, *SAMPLE CARD MAKER: * Dai Burnette [facility] -- INDICATIONS: Pre-operative. Shortness of breath. Abnormal [...] was augmented by the addition of hand jaw skinner. The infusion was terminated after achieving the [...] (84) + + (more content not included)... [employer] Work Phone: Brandyn, [employer] Incoming Cardiology Results From [facility]/Ottoniel - 05/11/2021 4:29 PM EDT STRESS ECHOCARDIOGRAM Dobutamine PATIENT: Kevin Griffith STUDY DATE: 05/11/2021 : 1945 AGE: 75 HT/WT: 177.8 cm (70 123.2 kg in) (271 lb) GENDER: M BP: 149 / 83 LOCATION: [employer] [facility] PATIENT Outpatient [facility] STATUS: Medical Center *ORDERING PHYSICIAN: Amina Holland, *FELLOW: * Wes Montilla MD *SUPERVISING PHYSICIAN: * *RN: * Bessie Duarte Diana *READING PHYSICIAN: * Donnell Valdes MD, *SAMPLE CARD MAKER: * Dai Burnette [facility] -- INDICATIONS: Pre-operative. Shortness of breath. Abnormal [...] was augmented by the addition of hand jaw skinner. The infusion was terminated after achieving the [...] an appropriate blo (more content not included)... [employer] Work Phone: [employer] Phone: Echo Dobutamine Stress Echo w/wo Conton 05-11-2021 Echo Dobutamine Stress Echo w/wo Cont Patient Name: KEVIN GRIFFITH Ultrasound ACCESSION EXAM DATE/TIME PROCEDURE ORDERING PROVIDER [id number] 05/11/2021 11:00 EDT Echo Dobutamine Stress AWA[facility]LLAND ALLISON Echo w/wo Cont Reason For Exam (Echo Dobutamine Stress Echo w/wo Cont) pre op testing, abnormal EKG, shortness of breath Report STRESS ECHOCARDIOGRAM Dobutamine PATIENT: Kevin Griffith STUDY DATE: 05/11/2021 : 1945 AGE: 75 HT/WT: 177.8 cm (70 123.2 kg in) (271 lb) GENDER: M BP: 149 / 83 LOCATION: [facility] PATIENT Outpatient [facility] STATUS: Medical Center *ORDERING PHYSICIAN: * Amalia, *FELLOW: * Wes Montilla MD *SUPERVISING PHYSICIAN: * *RN: * Bessie Duarte Diana *READING PHYSICIAN: * Donnell Valdes MD, *SAMPLE CARD MAKER: * Dai Burnette [facility] -- INDICATIONS: Pre-operative. Shortness of breath. Abnormal [...] was augmented by the addition of hand jaw skinner. The infusion was terminated after achieving the [...] --+ +-- (more content not included)... Normal [employer] CBCOrdered By: Raeann murillo on 05-05-2021 Hematocrit (Bld) [Volume fraction] 46.8 % 40.0 - 52.0 % [employer] Phone: 222 Hemoglobin.gastrointestin al spec 1 Ql (Stl) 15.9 g/dL 13.0 - 18.0 g/dL [employer] Phone: Interpretation and review of laboratory results Abnormal [employer] Phone: MCH (RBC) [Entitic mass] 31.9 pg 26. 0 - 34.0 pg [employer] Phone: MCHC (RBC) [Mass/Vol] 34.0 % 32.0 - 36.0 % [employer] Phone: MCV (RBC) [Entitic vol] 94.0 fL 80.0 - 98.0 fL [employer] Phone: Platelet distribution width (Bld) [Ratio] 13.6 % 11.5 - 14.5 % [employer] Phone: Platelet mean volume (Bld) [Entitic vol] 9.0 fL 7.4 - 10.4 fL [employer] Phone: 222 Platelets (Bld) [#/Vol] 287 10*3/uL 140 - 440 10*3/uL [employer] Work Phone: 222 RBC (Bld) [#/Vol] 4.98 10*6/uL 4.40 - 5.9 0 10*6/uL [employer] Work Phone: 222 WBC (Bld) [#/Vol] 11.0 10*3/uL High 3.6 - 10.7 10*3/uL [employer] Phone: 222 Test Performed by [facility], [address] [place] [id number] [facility] Work Phone: [facility] Work Phone: Comp Panel with Mg Reflexon 05-05-2021 ALP [Catalytic activity/Vol] 74 U/L Normal 38-126 [facility] Comment on above: Performed By: #### C MP3M, HEMOG #### [facility] [address] [place], [place] ALT [Catalytic activity/Vol] 38 U/L Normal 0-49 [facility] Comment on above: Result Comment: The ALT test is performed by an updated assay method. Please note that the reference intervals have been changed and are now sex specific. Performed By: #### C MP3M, HEMOG #### [facility] [address] [place], [place] AST [Catalytic activity/Vol] 28 U/L Normal 15-46 [facility] Comment on above: Performed By: #### C MP3M, HEMOG #### [facility] [address] [place], [place] Calcium [Mass/Vol] 9.6 mg/dL Normal 8.4-10.4 [facility] Comment on above: Performed By: #### C MP3M, HEMOG #### [facility] [address] [place], [place] Glucose [Mass/Vol] 55 mg/dL Low 70-100 [facility] Comment on above: Performed By: #### C MP3M, HEMOG #### [facility] [address] [place], [place] Protein [Mass/Vol] 8.1 g/dL Normal 6.3-8.2 [facility] Comment on above: Performed By: #### C MP3M, HEMOG #### [facility] [address] [place], [place] Urea nitrogen [Mass/Vol] 23 mg/dL High 7-20 [facility] Comment on above: Performed By: #### C MP3M, HEMOG #### [facility] [address] [place], [place] Anion gap [Moles/Vol] 9 mmol/L Normal 3-13 [facility] Comment on above: Performed By: #### C MP3M, HEMOG #### [facility] [address] [place], [place] Bilirubin [Mass/Vol] 1.3 mg/dL Normal 0.2-1.3 [facility] Comment on above: Performed By: #### C MP3M, HEMOG #### [facility] [address] [place], [place] CO2 [Moles/Vol] 30 mmol/L Normal 22-30 [facility] Comment on above: Performed By: #### C MP3M, HEMOG #### [facility] [address] [place], [place] Creatinine [Mass/Vol] 1.02 mg/dL Normal 0.52-1.25 [facility] Comment on above: Performed By: #### C MP3M, HEMOG #### [facility] [address] [place], [place] GFR/1.73 sq M.predicted among blacks MDRD (S/P/Bld) [Vol rate/Area] 81.9 mL/min/{1.73_m2} Normal >60 [facility] Comment on above: Performed By: #### C MP3M, HEMOG #### [facility] [address] [place], [place] GFR/1.73 sq M.predicted among non-blacks MDRD (S/P/Bld) [Vol rate/Area] 70.7 mL/min/{1.73_m2} Normal >60 [facility] Comment on above: Result Comment: KDIG [...] Performed By: #### C MP3M, HEMOG #### [facility] [address] [place] [address] Albumin [Mass/Vol] 4.8 g/dL Normal 3.5-5.0 [facility] Comment on above: Performed By: #### C MP3M, HEMOG #### [facility] [address] [place] [address] Chloride [Moles/Vol] 101 mmol/L Normal 98-107 [facility] Comment on above: Performed By: #### C MP3M, HEMOG #### [facility] [address] [place] [address] Potassium [Moles/Vol] 3.9 mmol/L Normal 3.5-5.1 [facility] Comment on above: Performed By: #### C MP3M, HEMOG #### [facility] [address] [place] [address] Sodium [Moles/Vol] 140 mmol/L Normal 135-145 [facility] Comment on above: Performed By: #### C MP3M, HEMOG #### [facility] [address] [place] [address] Comprehensive Metabolic Pane l w/ Reflex to MGOrdered By: Raeann Holland on 05-05-2021 Albumin [Mass/Vol] 4.8 g/dL 3.5 - 5.0 g/dL [facility] Work Phone: ALP (Bld) [Catalytic activity/Vol] 74 U/L 38 - 126 U/L [facility] Work Phone: ALT [Catalytic activity/Vol] 38 U/L 0 - 49 U/L [facility] Work Phone: Comment on above: The ALT test is perf ormed by an updated assay method. Please note that the reference intervals have been changed and are now sex specific. Anion gap [Moles/Vol] 9 mmol/L 3 - 13 mmol/L [facility] Work Phone: AST [Catalytic activity/Vol] 28 U/L 15 - 46 U/L [facility] Work Phone: [phone] Bilirubin [Mass/Vol] 1.3 mg/dL 0.2 - 1 .3 mg/dL [facility] Work Phone: [phone] Calcium [Mass/Vol] 9.6 mg/dL 8.4 - 10. 4 mg/dL [facility] Work Phone: [phone] Chloride [Moles/Vol] 101 mmol/L 98 - 10 7 mmol/L [facility] Work Phone: [phone] CO2 [Moles/Vol] 30 mmol/L 22 - 30 mmol/L [facility] Work Phone: [phone] Creatinine [Mass/Vol] 1.02 mg/dL 0.52 - 1.25 mg/dL [facility] Work Phone: [phone] EGFR IF NonAfrican [place]er 70.7 mL/min >60 [facility] Work Phone: [phone] Comment on above: KDIGO guidelines pro [...] fraction] 8.1 g/dL 6.3 - 8.2 g/dL [facility] Work Phone: GFR/1.73 sq M.predicted among blacks MDRD (S/P/Bld) [Vol rate/Area] 81.9 mL/min/{1.73_m2} >60 [facility] Work Phone: Glucose [Mass/Vol] 55 mg/dL Low 70 - 100 mg/dL [facility] Work Phone: [phone] Interpretation and review of laboratory results Abnormal [facility] Work Phone: Potassium [Moles/Vol] 3.9 mmol/L 3.5 - 5.1 mmol/L [facility] Work Phone: [phone] Sodium [Moles/Vol] 140 mmol/L 135 - 145 mmol/L [facility] Work Phone: Urea nitrogen (BldV) [Mass/Vol] 23 mg/dL High 7 - 20 mg/dL [facility] Work Phone: [phone] Test Performed by [facility], [address] [place] [id number] [facility] Work Phone: [phone] [facility] Work Phone: Hemogramon 05-05-2021 Erythrocyte distribution width (RBC) [Ratio] 13.6 % Normal 11.5-14.5 [facility] Comment on above: Performed By: #### C MP3M, HEMOG #### [address] [address] Hematocrit (Bld) [Volume fraction] 46.8 % Normal 40.0-52.0 [facility] Comment on above: Performed By: #### C MP3M, HEMOG #### [address] [address] Hemoglobin (Bld) [Mass/Vol] 15.9 g/dL Normal 13.0-18.0 [facility] Comment on above: Performed By: #### C MP3M, HEMOG #### [address] [address] MCH (RBC) [Entitic mass] 31.9 pg Normal 26.0-34.0 [facility] Comment on above: Performed By: #### C MP3M, HEMOG #### [address] [address] MCHC 34.0 % Normal 32.0-36.0 [facility] Comment on above: Performed By: #### C MP3M, HEMOG #### [place] [address] [place], [place] MCV (RBC) [Entitic vol] 94.0 fL Normal 80.0-98.0 [facility] Comment on above: Performed By: #### C MP3M, HEMOG #### [place] [address] [address] [place], [place] Platelet mean volume (Bld) [Entitic vol] 9.0 fL Normal 7.4-10.4 [facility] Comment on above: Performed By: #### C MP3M, HEMOG #### [place] [address] [place], [place] Platelets (Bld) [#/Vol] 287 10*3/uL Normal 140-440 [facility] Comment on above: Performed By: #### C MP3M, HEMOG #### [place] [address] [place], [place] RBC (Bld) [#/Vol] 4.98 10*6/uL Normal 4.40-5.90 [facility] Comment on above: Performed By: #### C MP3M, HEMOG #### [place] [address] [place], [place] WBC (Bld) [#/Vol] 11.0 10*3/uL High 3.6-10.7 [facility] Comment on above: Performed By: #### C MP3M, HEMOG #### [place] [address] [address] [place], [place] TS GELon 05-05-2021 TS GEL ABO Group: A Rh, Gel: POS Antibody Screen Gel: NEG Normal [facility] Comment on above: Performed By: #### T SGL #### [facility] TYPE AND SCREENOrdered By: Khushbu Holland on 05-05-2021 ABO Grouping A [facility] Work Phone: Rh Type Positive [facility] Work Phone: Test Performed by [facility], [facility] [place], [place] [facility] Work Phone: [facility] Work Phone: Otheron 08-16-2006 CONVERTED ELECTRONIC SIGNATURE KENNY SIMPSON M.D., PATHOLOGIST (Electronic signature on file) Final Signed Out: 08/16/2006 12:36 [facility] CONVERTED FINAL DIAGNOSIS LEFT KNEE, EXC ISION - DEGENERATIVE CHANGES OF ARTICULAR CARTILAGE CONSISTENT WITH OSTEOARTHRITIS. [facility] CONVERTED ORDERING PROVIDER Ordering Provider: WYATT NOBLE [facility] Otheron 02-06-2006 CONVERTED ELECTRONIC SIGNATURE BILL MELTON M.D., PATHOLOGIST (Electronic signature on file) Final Signed Out: 02/06/2006 15:13 [facility] CONVERTED FINAL DIAGNOSIS LEFT KNEE, EXC ISION - FIBROCARTILAGE WITH DEGENERATIVE CHANGES. SYNOVIUM WITH NONSPECIFIC REACTIVE CHANGES. [facility] CONVERTED ORDERING PROVIDER Ordering Provider: WYATT NOBLE [facility] Vital Signs Date Time Vital Sign [facility] 05-11-2025 19:06-0400 Body temperature 98.4 [degF] Dr. Ron Cooley MD Work Phone: [facility] 05-11-2025 19:06-0400 Diastolic blood pressure 69 mm[Hg] Dr. Ron Cooley MD Work Phone: [facility] 05-11-2025 19:06-0400 Heart rate 72 /min Dr. Ron Cooley MD Work Phone: [facility] 05-11-2025 19:06-0400 Respiratory rate 16 /min Dr. Ron Cooley MD Work Phone: [facility] 05-11-2025 19:06-0400 SaO2% (BldA) [Mass fraction] 97 % Dr. Ron Cooley MD Work Phone: [facility] 05-11-2025 19:06-0400 Systolic blood pressure 138 mm[Hg] Dr. Ron Cooley MD Work Phone: [facility] 05-11-2025 17:49-0400 Body height 177.[address] Ron Cooley MD Work Phone: [facility] 05-11-2025 17:49-0400 Body mass index (BMI) [Ratio] 36.6 kg/m2 Dr. Ron Cooley MD Work Phone: [facility] 05-11-2025 17:49-0400 Body weight [address] Ron Cooley MD Work Phone: [facility] 04-13-2025 22:27-0400 Diastolic blood pressure 75 mm[Hg] FINA Powell MD Work Phone: [facility] 04-13-2025 22:27-0400 Heart rate 77 /min FINA Powell MD Work Phone: [facility] 04-13-2025 22:27-0400 Respiratory rate 20 /min FINA Powell MD Work Phone: [facility] 04-13-2025 22:27-0400 SaO2% (BldA) [Mass fraction] 97 % FINA Powell MD Work Phone: [facility] 04-13-2025 22:27-0400 Systolic blood pressure 133 mm[Hg] FINA Powell MD Work Phone: [facility] 04-13-2025 20:40-0400 Body temperature 98.01 [degF] FINA Powell MD Work Phone: [facility] 04-09-2025 13:13-0400 Body temperature 96.8 [degF] Dr. Ron Cooley MD Work Phone: [facility] 04-09-2025 13:13-0400 Diastolic blood pressure 65 mm[Hg] Dr. Ron Cooley MD Work Phone: [facility] 04-09-2025 13:13-0400 Heart rate 76 /min Dr. Ron Cooley MD Work Phone: [facility] 04-09-2025 13:13-0400 Respiratory rate 18 /min Dr. Ron Cooley MD Work Phone: [facility] 04-09-2025 13:13-0400 SaO2% (BldA) [Mass fraction] 98 % Dr. Ron Cooley MD Work Phone: [facility] 04-09-2025 13:13-0400 Systolic blood pressure 145 mm[Hg] Dr. Ron Cooley MD Work Phone: 1(862)998-066357 [place] [address] 04-09-2025 11:18-0400 Body height [address] Ron Cooley MD Work Phone: 7(128)716-051657 [place] [address] 04-09-2025 11:18-0400 Body mass index (BMI) [Ratio] 35.8 kg/m2 Dr. Ron Cooley MD Work Phone: 6(346)043-631957 [place] [address] 04-09-2025 11:18-0400 Body weight 113.[address] Ron Cooley MD Work Phone: 6(726)511-945855 [place] [address] 03-20-2025 16:23-0400 Diastolic blood pressure 78 mm[Hg] Dr. Ron Cooley MD Work Phone: 0(900)792-422755 [place] [address] 03-20-2025 16:23-0400 Systolic blood pressure 164 mm[Hg] Dr. Ron Cooley MD Work Phone: 2(308)072-990955 [place] [address] 03-20-2025 15:16-0400 Body height 177.[address] Ron Cooley MD Work Phone: 9(587)677-310255 [place] [address] 03-20-2025 15:16-0400 Body mass index (BMI) [Ratio] 34.9 kg/m2 Dr. Ron Cooley MD Work Phone: 4(311)136-301757 [place] [address] 03-20-2025 15:16-0400 Body temperature 98.2 [degF] Dr. Ron Cooley MD Work Phone: 6(480)593-192863 [address] 03-20-2025 15:16-0400 Body weight 110.[address] Ron Cooley MD Work Phone: 1(607)262-393757 [place] [address] 03-20-2025 15:16-0400 Diastolic blood pressure 72 mm[Hg] Dr. Ron Cooley MD Work Phone: 1(143)811-429863 [address] 03-20-2025 15:16-0400 Heart rate 86 /min Dr. Ron Cooley MD Work Phone: 2(527)201-887857 [place] [address] 03-20-2025 15:16-0400 Respiratory rate 15 /min Dr. Ron Cooley MD Work Phone: 9(370)061-706455 [place] [address] 03-20-2025 15:16-0400 SaO2% (BldA) [Mass fraction] 95 % Dr. Ron Cooley MD Work Phone: 9(963)100-419555 [place] [address] 03-20-2025 15:16-0400 Systolic blood pressure 134 mm[Hg] Dr. Ron Cooley MD Work Phone: 4(119)780-758255 [place] [address] 02-14-2025 21:12-0400 Body height 177.[address] Ron Cooley MD Work Phone: 3(003)655-175155 [place] [address] 02-14-2025 21:12-0400 Body temperature 97.3 [degF] Dr. Ron Cooley MD Work Phone: 4(750)230-518955 [place] [address] 02-14-2025 21:12-0400 Diastolic blood pressure 60 mm[Hg] Dr. Ron Cooley MD Work Phone: 0(473)805-737555 [place] [address] 02-14-2025 21:12-0400 Heart rate 93 /min Dr. Ron Cooley MD Work Phone: 3(294)432-963455 [place] [address] 02-14-2025 21:12-0400 Respiratory rate 18 /min Dr. Ron Cooley MD Work Phone: 4(706)823-251555 [place] [address] 02-14-2025 21:12-0400 SaO2% (BldA) [Mass fraction] 92 % Dr. Ron Cooley MD Work Phone: 4(286)332-989455 [place] [address] 02-14-2025 21:12-0400 Systolic blood pressure 137 mm[Hg] Dr. Ron Cooley MD Work Phone: 5(013)982-606555 [place] [address] 02-06-2025 14:25-0400 Diastolic blood pressure 64 mm[Hg] Dr. Ron Cooley MD Work Phone: 1(488)595-224855 [place] [address] 02-06-2025 14:25-0400 Systolic blood pressure 116 mm[Hg] Dr. Ron Cooley MD Work Phone: 6(699)581-989157 [place] [address] 02-06-2025 12:56-0400 Body temperature 97.8 [degF] Dr. Ron Cooley MD Work Phone: 8(921)491-854055 [place] [address] 02-06-2025 12:56-0400 Body weight 110.[address] Ron Cooley MD Work Phone: 2(135)119-415155 [place] [address] 02-06-2025 12:56-0400 Heart rate 82 /min Dr. Ron Cooley MD Work Phone: 7(031)608-478255 [place] [address] 02-06-2025 12:56-0400 Respiratory rate 17 /min Dr. Ron Cooley MD Work Phone: 1(770)264-665855 [place] [address] 02-06-2025 12:56-0400 SaO2% (BldA) [Mass fraction] 95 % Dr. Ron Cooley MD Work Phone: 3(740)254-745755 [place] [address] 12-10-2024 14:30-0500 Diastolic blood pressure 70 mm[Hg] Dr. Ron Cooley MD Work Phone: 8(351)390-425155 [place] [address] 12-10-2024 14:30-0500 Systolic blood pressure 130 mm[Hg] Dr. Ron Cooley MD Work Phone: 3(091)571-521555 [place] [address] 12-10-2024 10:36-0500 Body height 177.[address] Ron Cooley MD Work Phone: 8(643)195-942355 [place] [address] 12-10-2024 10:36-0500 Body mass index (BMI) [Ratio] 34.7 kg/m2 Dr. Ron Cooley MD Work Phone: 4(665)528-684955 [place] [address] 12-10-2024 10:36-0500 Body temperature 97.7 [degF] Dr. Ron Cooley MD Work Phone: 6(318)693-600155 [place] [address] 12-10-2024 10:36-0500 Body weight 109.[address] Ron Cooley MD Work Phone: 5(151)279-641855 [place] [address] 12-10-2024 10:36-0500 Heart rate 77 /min Dr. Ron Cooley MD Work Phone: [facility] 12-10-2024 10:36-0500 Respiratory rate 14 /min Dr. Ron Cooley MD Work Phone: [facility] 12-10-2024 10:36-0500 SaO2% (BldA) [Mass fraction] 97 % Dr. Ron Cooley MD Work Phone: 2(262)943-236257 [place] [address] 12-05-2024 19:35-0500 Body temperature 98 [degF] Dr. Ron Cooley MD Work Phone: 0(705)650-338963 [address] 12-05-2024 19:35-0500 Diastolic blood pressure 75 mm[Hg] Dr. Ron Cooley MD Work Phone: 3(058)543-956857 [place] [address] 12-05-2024 19:35-0500 Heart rate 67 /min Dr. Ron Cooley MD Work Phone: 0(636)093-815357 [place] [address] 12-05-2024 19:35-0500 Respiratory rate 18 /min Dr. Ron Cooley MD Work Phone: 5(302)797-302263 [address] 12-05-2024 19:35-0500 SaO2% (BldA) [Mass fraction] 97 % Dr. Ron Cooley MD Work Phone: 9(215)650-134957 [place] [address] 12-05-2024 19:35-0500 Systolic blood pressure 118 mm[Hg] Dr. Ron Cooley MD Work Phone: 0(051)563-339857 [place] [address] 12-05-2024 17:15-0500 Body mass index (BMI) [Ratio] 34.5 kg/m2 Dr. Ron Cooley MD Work Phone: 8(049)767-327757 [place] [address] 12-05-2024 17:15-0500 Body weight 109.[address] Ron Cooley MD Work Phone: 8(363)149-896857 [place] [address] 10-12-2024 13:02-0500 Body temperature 98.2 [degF] Dr. Ron Cooley MD Work Phone: 2(591)108-993157 [place] [address] 10-12-2024 13:02-0500 Diastolic blood pressure 84 mm[Hg] Dr. Ron Cooley MD Work Phone: [facility] 10-12-2024 13:02-0500 Heart rate 78 /min Dr. Ron Cooley MD Work Phone: [facility] 10-12-2024 13:02-0500 Respiratory rate 16 /min Dr. Ron Cooley MD Work Phone: 8(321)049-934757 [place] [address] 10-12-2024 13:02-0500 SaO2% (BldA) [Mass fraction] 95 % Dr. Ron Cooley MD Work Phone: 0(426)468-014157 [place] [address] 10-12-2024 13:02-0500 Systolic blood pressure 121 mm[Hg] Dr. Ron Cooley MD Work Phone: 8(216)712-102357 [place] [address] 10-12-2024 11:16-0500 Body mass index (BMI) [Ratio] 35.6 kg/m2 Dr. Ron Cooley MD Work Phone: 9(416)499-130657 [place] [address] 10-12-2024 11:16-0500 Body weight 112.[address] Ron Cooley MD Work Phone: 5(131)119-023257 [place] [address] 03-25-2024 14:24-0400 Body height 177.[address] Ron Cooley Work Phone: 6(741)457-702757 [place] [address] 03-25-2024 14:24-0400 Body mass index (BMI) [Ratio] 36.3 kg/m2 Dr. Ron Cooley Work Phone: [facility] 03-25-2024 14:24-0400 Body temperature 98 [degF] Dr. Ron Cooley Work Phone: [facility] 03-25-2024 14:24-0400 Body weight 114.[address] Ron Cooley Work Phone: [facility] 03-25-2024 14:24-0400 Diastolic blood pressure 58 mm[Hg] Dr. Ron Cooley Work Phone: 6(359)056-033357 [place] [address] 03-25-2024 14:24-0400 Heart rate 78 /min Dr. Ron Cooley Work Phone: [facility] 03-25-2024 14:24-0400 Respiratory rate 17 /min Dr. Ron Cooley Work Phone: [facility] 03-25-2024 14:24-0400 SaO2% (BldA) [Mass fraction] 94 % Dr. Ron Cooley Work Phone: [facility] 03-25-2024 14:24-0400 Systolic blood pressure 124 mm[Hg] Dr. Ron Cooley Work Phone: [facility] 11-23-2023 14:02-0500 Body height 177.[address] Ron Cooley Work Phone: [facility] 11-23-2023 14:02-0500 Body mass index (BMI) [Ratio] 37 kg/m2 Dr. Ron Cooley Work Phone: [facility] 11-23-2023 14:02-0500 Body temperature 97.8 [degF] Dr. Ron Cooley Work Phone: [facility] 11-23-2023 14:02-0500 Body weight 117.[address] Ron Cooley Work Phone: [facility] 11-23-2023 14:02-0500 Diastolic blood pressure 84 mm[Hg] Dr. Ron Cooley Work Phone: [facility] 11-23-2023 14:02-0500 Heart rate 75 /min Dr. Ron Cooley Work Phone: [facility] 11-23-2023 14:02-0500 Respiratory rate 17 /min Dr. Ron Cooley Work Phone: [facility] 11-23-2023 14:02-0500 SaO2% (BldA) [Mass fraction] 93 % Dr. Ron Cooley Work Phone: [facility] 11-23-2023 14:02-0500 Systolic blood pressure 112 mm[Hg] Dr. Ron Cooley Work Phone: [facility] 08-07-2023 14:26-0400 Body height 177.[address] Ron Cooley Work Phone: [facility] 08-07-2023 14:26-0400 Body mass index (BMI) [Ratio] 38 kg/m2 Dr. Ron Cooley Work Phone: [facility] 08-07-2023 14:26-0400 Body temperature 98.4 [degF] Dr. Ron Cooley Work Phone: [facility] 08-07-2023 14:26-0400 Body weight 120.[address] Ron Cooley Work Phone: [facility] 08-07-2023 14:26-0400 Diastolic blood pressure 88 mm[Hg] Dr. Ron Cooley Work Phone: [facility] 08-07-2023 14:26-0400 Heart rate 74 /min Dr. Ron Cooley Work Phone: [facility] 08-07-2023 14:26-0400 Respiratory rate 17 /min Dr. Ron Cooley Work Phone: [facility] 08-07-2023 14:26-0400 SaO2% (BldA) [Mass fraction] 96 % Dr. Ron Cooley Work Phone: [facility] 08-07-2023 14:26-0400 Systolic blood pressure 138 mm[Hg] Dr. Ron Cooley Work Phone: [facility] 04-12-2023 10:15-0400 Body height 177.[address] Ron Cooley Work Phone: [facility] 04-12-2023 10:15-0400 Body mass index (BMI) [Ratio] 37 kg/m2 Dr. Ron Cooley Work Phone: [facility] 04-12-2023 10:15-0400 Body weight 117.[address] Ron Cooley Work Phone: [facility] 04-12-2023 10:15-0400 Diastolic blood pressure 70 mm[Hg] Dr. Ron Cooley Work Phone: [facility] 04-12-2023 10:15-0400 Heart rate 60 /min Dr. Ron Cooley Work Phone: [facility] 04-12-2023 10:15-0400 Respiratory rate 18 /min Dr. Ron Cooley Work Phone: [facility] 04-12-2023 10:15-0400 Systolic blood pressure 119 mm[Hg] Dr. Ron Cooley Work Phone: [facility] 04-11-2023 21:17-0400 Diastolic blood pressure 74 mm[Hg] Dr. Ron Cooley Work Phone: [facility] 04-11-2023 21:17-0400 Systolic blood pressure 124 mm[Hg] Dr. Ron Cooley Work Phone: [facility] 04-11-2023 21:16-0400 Heart rate 61 /min Dr. Ron Cooley Work Phone: [facility] 04-11-2023 09:55-0400 Body mass index (BMI) [Ratio] 37.3 kg/m2 Dr. Ron Cooley Work Phone: [facility] 04-11-2023 09:55-0400 Body temperature 97.8 [degF] Dr. Ron Cooley Work Phone: [facility] 04-11-2023 09:55-0400 Body weight 118.[address] Ron Cooley Work Phone: [facility] 04-11-2023 09:55-0400 Diastolic blood pressure 66 mm[Hg] Dr. Ron Cooley Work Phone: [facility] 04-11-2023 09:55-0400 Heart rate 70 /min Dr. Ron Cooley Work Phone: [facility] 04-11-2023 09:55-0400 Respiratory rate 17 /min Dr. Ron Cooley Work Phone: [facility] 04-11-2023 09:55-0400 SaO2% (BldA) [Mass fraction] 98 % Dr. Ron Cooley Work Phone: [facility] 04-11-2023 09:55-0400 Systolic blood pressure 140 mm[Hg] Dr. Ron Cooley Work Phone: [facility] 02-11-2023 12:46-0400 Body height 177.8 cm [facility] 02-11-2023 12:46-0400 Body mass index (BMI) [Ratio] 36.8 kg/m2 [facility] 02-11-2023 12:46-0400 Body temperature 97 [degF] [facility] 02-11-2023 12:46-0400 Body weight 116.52 kg [facility] 02-11-2023 12:46-0400 Diastolic blood pressure 68 mm[Hg] [facility] 02-11-2023 12:46-0400 Heart rate 82 /min [facility] 02-11-2023 12:46-0400 Respiratory rate 18 /min [facility] 02-11-2023 12:46-0400 SaO2% (BldA) [Mass fraction] 97 % [facility] 02-11-2023 12:46-0400 Systolic blood pressure 149 mm[Hg] [facility] 12-12-2022 13:47-0500 Body height 177.8 cm Leni Ruiz APRN.FRANCHISE MANAGER Work Phone: [facility] 12-12-2022 13:47-0500 Body weight 118.3 kg Leni Ruiz APRN.FRANCHISE MANAGER Work Phone: [facility] 12-12-2022 13:47-0500 SaO2% (BldA) [Mass fraction] 96 % Leni Ruiz APRN.FRANCHISE MANAGER Work Phone: [facility] 08-04-2022 13:56-0400 Diastolic blood pressure 86 mm[Hg] Jaylyn Nieves MD Work Phone: [facility] 08-04-2022 13:56-0400 Heart rate 107 /min Jaylyn Nieves MD Work Phone: [facility] 08-04-2022 13:56-0400 Respiratory rate 16 /min Jaylyn Nieves MD Work Phone: [facility] 08-04-2022 13:56-0400 SaO2% (BldA) [Mass fraction] 95 % Jaylyn Nieves MD Work Phone: [facility] 08-04-2022 13:56-0400 Systolic blood pressure 109 mm[Hg] Jaylyn Nieves MD Work Phone: [facility] 04-12-2022 08:46-0400 Body height 177.[address] Patricia Mcgowan Work Phone: [facility] Work Phone: 04-12-2022 08:46-0400 Body mass index (BMI) [Ratio] 38.4 kg/m2 Dr. Patricia Mcgwoan Work Phone: [facility] Work Phone: 04-12-2022 08:46-0400 Body weight 121.[address] Patricia Mcgowan Work Phone: [facility] Work Phone: 04-12-2022 08:46-0400 Diastolic blood pressure 71 mm[Hg] Dr. Patricia Mcgowan Work Phone: [facility] Work Phone: 04-12-2022 08:46-0400 Heart rate 86 /min Dr. Patricia Mcgowan Work Phone: [facility] Work Phone: 04-12-2022 08:46-0400 Respiratory rate 16 /min Dr. Patricia Mcgowan Work Phone: [facility] Work Phone: 04-12-2022 08:46-0400 SaO2% (BldA) [Mass fraction] 97 % Dr. Patricia Mcgowan Work Phone: [facility] Work Phone: 04-12-2022 08:46-0400 Systolic blood pressure 113 mm[Hg] Dr. Patricia Mcgowan Work Phone: [facility] Work Phone: 04-12-2022 08:46-0400 Body height 177.[address] Patricia Mcgowan Work Phone: [facility] Work Phone: 04-12-2022 08:46-0400 Body mass index (BMI) [Ratio] 38.4 kg/m2 Dr. Patricia Mcgowan Work Phone: [facility] Work Phone: 04-12-2022 08:46-0400 Body weight 121.[address] Patricia Mcgowan Work Phone: [facility] Work Phone: 04-12-2022 08:46-0400 Diastolic blood pressure 71 mm[Hg] Dr. Patricia Mcgowan Work Phone: [facility] Work Phone: 04-12-2022 08:46-0400 Heart rate 86 /min Dr. Patricia Mcgowan Work Phone: [facility] Work Phone: 04-12-2022 08:46-0400 Respiratory rate 16 /min Dr. Patricia Mcgowan Work Phone: [facility] Work Phone: 04-12-2022 08:46-0400 SaO2% (BldA) [Mass fraction] 97 % Dr. Patricia Mcgowan Work Phone: [facility] Work Phone: 04-12-2022 08:46-0400 Systolic blood pressure 113 mm[Hg] Dr. Patricia Mcgowan Work Phone: [facility] Work Phone: 03-29-2022 12:09-0400 SaO2% (BldA) [Mass fraction] 98 % Jaylyn Nieves MD Work Phone: [facility] 03-17-2022 15:50-0400 Diastolic blood pressure 77 mm[Hg] Jaylyn Nieves MD Work Phone: [facility] 03-17-2022 15:50-0400 Systolic blood pressure 120 mm[Hg] Jaylyn Nieves MD Work Phone: [facility] 03-17-2022 14:51-0400 Body height 177.8 cm Jaylyn Nieves MD Work Phone: [facility] 03-17-2022 14:51-0400 Body weight 125.76 kg Jaylyn Nieves MD Work Phone: [facility] 03-17-2022 14:51-0400 Heart rate 101 /min Jaylyn Nieves MD Work Phone: [facility] 03-17-2022 14:51-0400 SaO2% (BldA) [Mass fraction] 98 % Jaylyn Nieves MD Work Phone: [facility] 01-28-2022 02:11-0500 Diastolic blood pressure 89 mm[Hg] Dr. Patricia Mcgowan Work Phone: [facility] Work Phone: 01-28-2022 02:11-0500 Heart rate 96 /min Dr. Patricia Mcgowan Work Phone: [facility] Work Phone: 01-28-2022 02:11-0500 Respiratory rate 18 /min Dr. Patricia Mcgowan Work Phone: [facility] Work Phone: 01-28-2022 02:11-0500 SaO2% (BldA) [Mass fraction] 94 % Dr. Patricia Mcgowan Work Phone: [facility] Work Phone: 01-28-2022 02:11-0500 Systolic blood pressure 158 mm[Hg] Dr. Patricia Mcgowan Work Phone: [facility] Work Phone: 01-28-2022 01:22-0500 Body mass index (BMI) [Ratio] 399.4 kg/m2 Dr. Patricia Mcgowan Work Phone: [facility] Work Phone: 01-28-2022 01:22-0500 Body temperature 97.6 [degF] Dr. Patricia Mcgowan Work Phone: [facility] Work Phone: 01-28-2022 01:22-0500 Body weight [address] Patricia Mcgowan Work Phone: [facility] Work Phone: 01-28-2022 01:11-0500 Diastolic blood pressure 89 mm[Hg] [facility] Work Phone: 01-28-2022 01:11-0500 Heart rate 96 /min [facility] Work Phone: 01-28-2022 01:11-0500 Respiratory rate 18 /min [facility] Work Phone: 01-28-2022 01:11-0500 SaO2% (BldA) [Mass fraction] 94 % [facility] Work Phone: 01-28-2022 01:11-0500 Systolic blood pressure 158 mm[Hg] [facility] Work Phone: 01-28-2022 00:22-0500 Body height 177.8 cm [facility] Work Phone: 01-28-2022 00:22-0500 Body mass index (BMI) [Ratio] 399.4 kg/m2 [facility] Work Phone: 01-28-2022 00:22-0500 Body temperature 97.6 [degF] [facility] Work Phone: 01-28-2022 00:22-0500 Body weight 1263 kg [facility] Work Phone: 10-05-2021 11:00-0500 Diastolic blood pressure 63 mm[Hg] Barb Morton MD Work Phone: [facility] Comment on above: Auto 10-05-2021 11:00-0500 Heart rate 99 /min Barb Morton MD Work Phone: [facility] 10-05-2021 11:00-0500 Systolic blood pressure 91 mm[Hg] Barb Morton MD Work Phone: [facility] Comment on above: Auto 10-05-2021 10:45-0500 Body weight 116.57 kg Barb Morton MD Work Phone: [facility] 05-19-2021 10:00-0400 Diastolic blood pressure 70 mm[Hg] Nii Altman MD Work Phone: [facility] Work Phone: 05-19-2021 10:00-0400 Heart rate [...] index (BMI) [Ratio] 38.88 kg/m2 Raeann Amalia [employer]DEL [employer]KER - FRANCHISE MANAGER Work Phone: [facility] Work Phone: 05-11-2021 09:45-0400 Body weight 122.92 kg Raeann Amalia [employer]ALE MODEL MAKER - FRANCHISE MANAGER Work Phone: [facility] Work Phone: Comment [...] 122.92 kg Nii Altman MD Work Phone: [facility] Work Phone: Encounters Encounter Date Encounter Type Care Provider Facility Start: 05-26-2025 End: 05-26-[address] Ron Cooley MD Work Phone: -[facility] Start: 05-26-2025 End: 05-26-[address] Natasha Gregory MD -[facility] Start: 05-26-2025 End: 05-26-2025 ambulatory Natasha Gregory Facility:[facility] Start: 05-14-2025 End: 05-14-[address] [...] ambulatory Dr. Ron Cooley MD Work Phone: [facility] Work Phone: Start: 05-09-2025 End: 05-09-[address] Vick Santo MD -Radiology [facility] Work Phone: Start: 05-09-2025 End: 05-09-2025 ambulatory Vick Santo Facility:[facility] Start: 05-07-[address] Olivier Santo MD -Speech Therapy Work Phone: Start: 04-13-2025 End: 04-13-2025 Emergency department patient visit Chetan Powell MD Work Phone: [facility] Comment on above: Facial laceration, i nitial encounter (Primary Dx); Fall, initial encounter; Open fracture of nasal bone, initial encounter Start: 04-09-2025 End: 04-09-2025 Emergency department patient visit Dr. Ron Cooley MD Work Phone: -Emergency Department Work Phone: Start: 04-03-2025 End: 04-03-[address] Ron Cooley MD -Laboratory [facility] Start: 04-03-2025 End: 04-03-2025 ambulatory NATASHA GREGORY MD Facility:[facility] Start: 04-03-2025 End: 04-03-2025 ambulatory Ron Cooley Facility:[facility] Start: 04-01-[address] Olivier Santo MD -Speech Therapy Work Phone: Start: 03-26-[address] Olivier Santo MD -Speech Therapy Work Phone: Start: 03-24-2025 End: 03-24-[address] Ron Cooley MD Work Phone: [facility] Work Phone: Start: 03-24-2025 End: 03-24-[address] Jose Perez MD -[facility] Work Phone: Start: 03-24-2025 End: 03-24-20[facility] Start: 03-20-2025 End: 03-20-[address] Vick Santo MD -[facility] Work Phone: Start: 03-20-2025 End: 03-20-2025 ambulatory Vick Santo Facility[place] Start: 03-03-2025 End: 03-03-[address] Ron Cooley MD Work Phone: [facility] Work Phone: Start: 03-03-2025 End: 03-03-[address] Jose Perez MD -[facility] Start: 03-03-2025 End: 03-03-2025 ambulatory Ron Cooley Facility:[facility] Start: 02-25-[address] Olivier Santo MD -Speech Therapy Work Phone: Start: 02-20-2025 End: 02-20-[address] Ron Cooley MD Work Phone: [facility] Work Phone: Start: 02-20-2025 End: 02-20-[address] aNtasha Gregory MD -[facility], [facility] Start: 02-20-2025 End: 02-20-2025 ambulatory Natasha Gregory Facility:[facility] Start: 02-14-2025 End: 02-14-2025 Emergency department patient visit Dr. Ron Cooley MD Work Phone: -Emergency Department Work Phone: Start: 02-06-2025 End: 02-06-[address] Vick Santo MD -[facility] Work Phone: Start: 02-06-2025 End: 02-06-2025 ambulatory Vick Santo Facility:[facility] Start: 01-21-2025 End: 01-21-[address] Ron Cooley MD Work Phone: [facility] Work Phone: Start: 01-21-2025 End: 01-21-[address] Ron Cooley MD -Radiology, [place] Work Phone: Start: 01-21-2025 End: 01-21-2025 ambulatory Ron Cooley Facility:[facility] Start: 12-10-2024 End: 12-10-[address] Vick Santo MD -[facility] Work Phone: Start: 12-10-2024 End: 12-10-2024 ambulatory Ron Cooley [facility] [facility] Start: 12-10-2024 End: 12-10-2024 ambulatory Ron Cooley Facility:[facility] Start: 12-05-2024 End: 12-05-2024 Emergency department patient visit Dr. Estuardo Mccormack DO -Emergency Department Work Phone: Start: 12-04-2024 End: 12-04-[address] [facility] Start: 12-04-2024 End: 12-04-2024 ambulatory Ron Cooley Facility:[facility] Start: 12-02-2024 End: 12-02-[address] Jose Perez MD -Radiology, [place] Work Phone: Start: 12-02-2024 End: 12-02-2024 ambulatory Ron Cooley Facility:[facility] Start: 10-28-2024 End: 10-28-[address] Natasha Gregory MD -Laboratory, [place] Work Phone: Start: 10-28-2024 End: 10-28-2024 ambulatory Natasha Gregory Facility:[facility] Start: 10-12-2024 End: 10-12-2024 Emergency department patient visit Dr. Osman Farooq MD -Emergency Department Work Phone: Start: 09-27-2024 End: 09-27-2024 ambulatory Ron Cooley Facility:[facility] Start: 09-20-2024 End: 09-20-2024 ambulatory [facility] Facility:[facility] Start: 09-02-2024 End: 09-02-2024 ambulatory Ron Cooley Facility:[facility] Start: 09-02-2024 End: 09-02-2024 [facility] Start: 08-07-2024 End: 08-07-2024 ambulatory Ron Cooley Facility:[facility] Start: 06-27-2024 End: 06-27-2024 ambulatory Ron Cooley Facility:[facility] Start: 06-27-2024 End: 06-27-2024 ambulatory Natasha Gregory Facility:[facility] Start: 06-10-2024 End: 06-10-2024 ambulatory Whitley Traning Facility:[facility] Start: 03-25-2024 End: 03-25-[address] Ron Cooley Work Phone: [facility] Work Phone: Start: 03-25-2024 End: 03-25-[address] [facility] Work Phone: Start: 03-25-2024 End: 03-25-[address] Ron Cooley Work Phone: [facility] Work Phone: Start: 02-27-2024 End: 02-27-[address] Ron Cooley Work Phone: [facility] Work Phone: Start: 02-27-2024 End: 02-27-[address] Ron Cooley Work Phone: [facility] Start: 01-30-2024 End: 01-30-[address] Ron Cooley Work Phone: [facility] Work Phone: Start: 01-30-2024 End: 01-30-[address] Ron Cooley Work Phone: [facility] Work Phone: Start: 12-26-2023 End: 12-26-[address] Ron Cooley Work Phone: [facility] Work Phone: Start: 12-26-2023 End: 12-26-[address] Ron Cooley Work Phone: [facility] Work Phone: Start: 12-15-2023 End: 12-15-[address] Ron Cooley Work Phone: [facility] Work Phone: Start: 12-15-2023 End: 12-15-[address] Ron Cooley Work Phone: [facility] Work Phone: Start: 11-23-2023 End: 11-23-[address] Ron Cooley Work Phone: [facility] Start: 11-23-2023 End: 11-23-[address] Ron Cooley Work Phone: [facility] Work Phone: Start: 11-22-2023 End: 11-22-[address] Ron Cooley Work Phone: [facility] Work Phone: Start: 11-22-2023 End: 11-22-[address] Ron Cooley Work Phone: [facility] Work Phone: Start: 10-31-2023 End: 10-31-[address] Ron Cooley Work Phone: [facility] Work Phone: Start: 10-31-2023 End: 10-31-[address] Ron Cooley Work Phone: [facility] Start: 09-07-2023 End: 09-07-[address] Ron Cooley Work Phone: [facility] Work Phone: Start: 08-07-2023 End: 08-07-[address] Ron Cooley Work Phone: [facility] Work Phone: Start: 08-03-2023 End: 08-03-[address] Ron Cooley Work Phone: [facility] Work Phone: Start: 06-21-2023 Non-patient / Non-visit Dr. Rimma Cooley Work Phone: [facility] Start: 06-21-2023 End: 06-21-[address] Ron Cooley Work Phone: [facility] Work Phone: Start: 06-21-2023 End: 06-21-[address] [facility] Work [facility]: Start: 05-18-2023 End: 05-18-[address] Ron Cooley Work Phone: [facility] Work Phone: Start: 05-18-2023 End: 05-18-[address] Ron Cooley Work Phone: [facility] Work Phone: Start: 05-09-2023 End: 05-09-[address] Ron Cooley Work Phone: [facility] Work Phone: Start: 05-09-2023 End: 05-09-[address] Ron Cooley Work Phone: [facility] Start: 05-02-2023 End: 05-02-[address] Ron Cooley Work Phone: [facility] Work Phone: Start: 05-02-2023 End: 05-02-[address] Ron Cooley Work Phone: [facility] Work Phone: Start: 05-02-[address] Ron Cooley Work Phone: [facility] Start: 05-01-2023 End: 05-01-[address] Ron Cooley Work Phone: [facility] Work Phone: Start: 05-01-2023 End: 05-01-[address] Ron Cooley Work Phone: [facility] Start: 04-12-2023 End: 04-12-[address] Ron Cooley Work Phone: [facility] Start: 04-11-2023 End: 04-11-[address] Ron Cooley Work Phone: [facility] Start: 02-21-2023 End: 02-21-2023 ambulatory [facility] Work Phone: Start: 02-21-2023 End: 02-21-2023 Patient encounter procedure [facility] Start: 02-14-2023 Telephone encounter Jaylyn peck MD Work Phone: Neurology Comment on above: Patient Update (Incr eased falls, aggression) Start: 02-11-2023 End: 02-11-2023 Emergency department patient visit [facility]-Emergency Department Start: 01-10-2023 Telephone encounter Jaylyn peck MD Work Phone: Neurology Comment on above: Patient Update Start: 01-04-2023 End: 01-04-2023 ambulatory [facility] Work Phone: Start: 01-04-2023 End: 01-04-2023 Patient encounter procedure [facility] Start: 12-12-2022 End: 12-12-2022 ambulatory Leni Ruiz APRN.FRANCHISE MANAGER Work Phone: Neurology Comment on above: TAMULOSIN Start: 12-12-2022 End: 12-12-2022 Office outpatient new 20 minutes Leni Ruiz APRN.FRANCHISE MANAGER Work Phone: Neurology Comment on above: Parkinsonism, unspec ified Parkinsonism type (HCC) (Primary Dx); Orthostatic hypotension; Anxiety Start: 10-10-2022 Telephone encounter Jaylyn peck MD Work Phone: Neurology Comment on above: Patient Update (Incr eased shaking in AM ) Start: 10-04-2022 End: 10-04-2022 ambulatory KORI BEBB Facility:[facility] Start: 10-04-2022 End: 10-04-2022 ambulatory [facility] PT, DPT Work Phone: [facility] Comment on above: Parkinsonism, unspec ified Parkinsonism type (HCC) (Primary Dx); Gait instability; Leg weakness, bilateral; Imbalance Start: 09-16-2022 End: 09-16-2022 ambulatory [facility] Work Phone: Start: 09-16-2022 End: 09-16-2022 Patient encounter procedure [facility] Start: 09-15-2022 End: 09-15-2022 ambulatory Jaylyn Nieves MD Work Phone: Neurology Comment on above: CYMBALTA Start: 09-12-2022 Telephone encounter Jaylyn peck MD Work Phone: [facility] Comment on above: Other (PD Symptoms W orsening) Start: 09-02-2022 End: 09-02-2022 [facility] Aleida Ramirez MD Work Phone: [facility] Comment on above: MELISSA (generalized anx iety disorder) (Primary Dx); Depression, unspecified depression type; Parkinsonism, unspecified Parkinsonism type (HCC) Start: 08-25-2022 End: 08-25-2022 ambulatory [facility] Facility:[facility] Start: 08-25-2022 End: 08-25-2022 ambulatory Kori Ryder PT, DPT Work Phone: [facility] Comment on above: Parkinsonism, unspec ified Parkinsonism type (HCC) (Primary Dx); Gait instability; Leg weakness, bilateral; Imbalance Start: 08-11-2022 End: 08-11-2022 ambulatory [facility] Facility:[facility] Start: 08-08-2022 ambulatory Jaylyn jennings MD Work Phone: Neurology Comment on above: Dr. Suzie Nieves at 07/21 2:20 PM Start: 08-04-2022 End: 08-04-2022 ambulatory JAYLYN NIEVES Facility:[facility] Start: 08-04-2022 End: 08-04-2022 Patient encounter procedure Jaylyn Nieves MD Work Phone: Neurology Comment on above: Parkinsonism, unspec ified Parkinsonism type (HCC) (Primary Dx); Depression, unspecified depression type; Anxiety; Orthostatic lightheadedness; Dysphagia, unspecified type Start: 08-01-2022 End: 08-01-[address] Patricia Mcgowan Work Phone: [facility] Work Phone: Start: 08-01-2022 End: 08-01-[address] [facility] Start: 07-21-2022 Telephone encounter Jaylyn peck MD Work Phone: Neurology Comment on above: Appointment (Earlier appointment request d/t worsening symptoms ) Start: 06-21-2022 End: 06-21-[address] Patricia Mcgowan Work Phone: [facility] Start: 06-20-2022 End: 06-20-[address] Patricia Mcgowan Work Phone: [facility] Start: 05-18-2022 Refill Jaylyn jennings MD Work Phone: [facility] Comment on above: Refill Request Start: 05-16-2022 Non-patient / Non-visit Dr. Danya Mcgowan Work Phone: [facility] Start: 05-16-2022 End: 05-16-[address] Patricia Mcgowan Work Phone: [facility]-Cardiovascul ar Services Start: 04-25-2022 End: 04-25-[address] Patricia Mcgowan Work Phone: [facility] Start: 04-12-2022 End: 04-12-[address] Patricia Mcgowan Work Phone: [facility] Start: 04-07-2022 End: 04-07-2022 Patient encounter procedure [facility] Start: 03-29-2022 End: 03-29-2022 ambulatory Maine Medel PT, DPT Work Phone: [facility] Comment on above: Parkinson disease (H CC) (Primary Dx) Start: 03-29-2022 End: 03-29-2022 Patient encounter procedure Sakina Ro CCC-DOCTORATE OF CHIROPRACTIC Work Phone: [facility] Outpatient Speech Therapy Comment on [...] 03-17-2022 End: 03-17-2022 ambulatory PATRICIA TRISTEN MCGOWAN Facility:[facility] Start: 03-17-2022 End: 03-17-2022 Patient encounter procedure Jaylyn Nieves MD Work Phone: Neurology Comment on above: Parkinsonism, unspec ified Parkinsonism type (HCC) (Primary Dx); Essential tremor; Dysphagia, unspecified type; Gait instability Start: 03-10-2022 End: 03-10-2022 Patient encounter procedure [facility] Start: 02-10-2022 Documentation procedure Jaspreet Ríos [facility] Start: 01-28-2022 End: 01-28-2022 Emergency department patient visit [facility]-Emergency Department Start: 12-31-2021 End: 12-31-2021 Patient encounter procedure [facility] Start: 12-21-2021 End: 12-21-2021 ambulatory BARB MORTON [facility] Start: 12-21-2021 End: 12-21-2021 Office outpatient visit 15 minutes Barb Morton MD Work Phone: [facility] Comment on above: Parkinson's disease (HCC) (Primary Dx) Start: 12-15-2021 End: 12-16-2021 [facility] Start: 12-15-2021 End: 12-16-2021 ambulatory [facility] Start: 12-05-2021 ambulatory [facility] Start: 11-18-2021 ambulatory [place] Start: 11-15-2021 Patient encounter procedure [facility]Xiomara Potter [facility] Start: 11-09-2021 Refill Jaspreet Qureshi MA [facility] Start: 11-05-2021 Documentation procedure Jim Bradford RN [facility] Start: 11-03-2021 Documentation procedure Jaspreet Ríos [facility] Start: 11-01-2021 End: 11-02-2021 ambulatory [facility] Start: 10-28-2021 End: 11-01-2021 ambulatory Barb Morton MD Work Phone: [facility] Building [facility] Comment on above: Tremor; Impaired mobility and activities of daily living; Impairment of balance Start: 10-05-2021 End: 10-05-2021 ambulatory PATRICIA TRISTEN MCGOWAN [facility] Start: 10-05-2021 End: 10-05-2021 Office outpatient visit 25 minutes Barb Morton MD Work Phone: [facility] Comment on above: Tremor (Primary Dx) Start: 09-27-2021 Transcribe Orders Patricia Mcgowan MD Work Phone: [facility] Comment on above: Tremor, essential (P rimary Dx) Start: 05-19-2021 End: 05-19-2021 Subsequent hospital visit by physician Nii Altman MD Work Phone: [facility] General Surgery Comment on above: Arrived Start: 05-11-2021 End: 05-11-2021 Patient encounter status Raeann Holland SCALE MODEL MAKER - FRANCHISE MANAGER Work Phone: [facility] Start: 05-11-2021 End: 05-11-2021 Subsequent hospital visit by physician Raeann Holland SCALE MODEL MAKER - FRANCHISE MANAGER Work Phone: [facility] Comment on above: [...] of breath Start: 04-12-2021 Patient encounter status [facility] Work Phone: Start: 08-14-2006 End: 08-14-2006 Patient encounter procedure Wyatt Noble Work Phone: [facility] Start: 08-14-2006 Results Only Wyatt Valleo x Work Phone: [facility] Start: 02-03-2006 End: 02-03-2006 Patient encounter procedure Wyatt Noble Work Phone: [facility] Start: 02-03-2006 Results Only Wyatt Valleo x Work Phone: [facility] Procedures Date Procedure Procedure Detail Performing Clinician Start: 05-26-2025 Folic acid measurement, RBC Dr. Ron Cooley MD Work Phone: Comment on above: Performed at: [address] [id number] Director: Vj Garcia PhD, Phone: [phone] Start: 05-09-[address] Ron valle MD [...] ECHOCARDIOGRAM PHARMACOLOGICAL STRESS TEST Raeann Case Holland SCALE MODEL MAKER - [employer] Work Phone: Start: 05-05-2021 Antibody screen Nii Charlton MD Work Phone: Start: 05-05-2021 Blood count complete automated Raeann Holland SCALE MODEL MAKER - [employer] Work Phone: Start: 05-05-2021 Blood typing serologic abo Raeann Case Holland SCALE MODEL MAKER [employer] Work Phone: Start: 05-05-2021 Ecg routine ecg w/le ast 12 lds w/i&r Raeann Case Holland SCALE MODEL MAKER - FRANCHISE MANAGER Work Phone: Start: 08-14-2006 CONVERTED SURGICAL PATHOLOGY Wyatt Noble Work Phone: Start: 02-03-2006 CONVERTED SURGICAL PATHOLOGY Wyatt Teixeira Donna Work Phone: Plan of Treatment Date Care Activity Detail Author Start: 12-05-2034 DTaP/Tdap/Td Vaccines (4 - Td or Tdap) DTaP/Tdap/Td Vaccines (4 - Td or Tdap) [facility] Start: 01-25-2031 Tetanus vaccination Tetanus: Every 10yrs [facility] Start: 05-11-2025 [facility] Start: 04-09-2025 Simple repair scalp/neck/ax/genit/trun k 2.5cm/< RPR S/N/AX/GEN/TRNK 2.5CM/< [facility] Start: 04-09-2025 [facility] Start: 03-24-2025 CT Chest WO contrast [facility] Start: 03-24-2025 CT of chest without contrast Chest without Contrast [facility] Start: 02-14-2025 [facility] Start: 01-04-2025 Patient referral [facility] Work Phone: Start: 12-11-2024 Patient referral [facility] Work Phone: Start: 12-05-2024 [facility] Start: 12-05-2024 Simple repair f/e/e/n/l/m 2.6cm-5.0 cm RPR F/E/E/N/L/M 2.6-5.0 CM [facility] Start: 11-11-2024 COVID-19 Vaccine () COVID-19 Vaccine () [facility] Start: 10-12-2024 Incentive spirometry [facility] Start: 10-12-2024 End: 10-12-2024 [facility] Start: 04-02-2024 Patient referral [facility] Work Phone: Start: 03-25-2024 Acetylcholine receptor blocking Ab [Presence] in Serum [facility] Start: 03-25-2024 Acetylcholine receptor modulating antibody measurement [facility] Start: 11-23-2023 Serum immunofixation [facility] Start: 11-23-2023 Urine immunofixation [facility] Start: 05-09-2023 [place] and lambda light chains [facility] Start: 05-09-2023 Thiamine measurement [facility] Start: 03-11-2023 Adult depression screening assessment DEPRESSION SCREENING [facility] Start: 11-20-2022 ADVANCE DIRECTIVE DISCUSSION ADVANCE DIRECTIVE DISCUSSION [facility] Start: 11-20-2022 DEPRESSION ASSESSMENT DEPRESSION ASSESSMENT [facility] Start: 07-21-2022 Influenza vaccination INFLUENZA (#1) [facility] Start: 05-05-2022 Creatinine measurement Creatinine monitoring [employer] Phone: Start: 05-05-2022 Diabetes: Estimated Glomerular Filtration Rate for [facility] Diabetes: Estimated Glomerular Filtration Rate for [facility] Start: 05-05-2022 Potassium monitoring Potassium monitoring [facility] Work Phone: Start: 12-21-2021 End: 12-21-2021 Telemedicine consultation with patient 12/21/2021 Telemedicine Neurology Barb Morton MD [address] [place] [address] [facility] Start: 12-15-2021 End: 12-15-2021 Patient encounter procedure 12/15/2021 Appointment Radiology Barb Morton MD [address] [place] [address] [facility] Nuclear Medicine Start: 11-20-2021 ADVANCE DIRECTIVE DISCUSSION ADVANCE DIRECTIVE DISCUSSION [facility] Start: 11-20-2021 DEPRESSION ASSESSMENT DEPRESSION ASSESSMENT [facility] Start: 11-01-2021 End: 11-01-2021 Patient encounter procedure 11/01/2021 Appointment Radiology Barb Morton MD [address] [facility] [address] [place] [address] [facility] CT Start: 06-03-2021 End: 06-03-2021 Patient encounter procedure 06/03/2021 Office Visit Neurosurgery Nii Altman MD [address] [place] [address] [phone] [facility] Start: 05-19-2021 End: 05-19-2021 Patient encounter procedure 05/19/2021 Appointment General Surgery Nii Altman MD [address] [place] [address] [phone] [facility] General Surgery Start: 05-05-2021 End: 07-04-2021 ECHO Pharmacological Stress Test ECHO Pharmacological Stress Test Echocardiography Routine Pre-op testing Abnormal EKG Shortness of breath Expected: 05/05/2021 (Approximate), Expires: 07/04/2021 [employer] Work Phone: Comment on above: Expected: 05/05/2021 (Approximate), Expi res: 07/04/2021 Start: 07-21-2020 Influenza vaccination INFLUENZA (#1) [facility] Start: 05-12-2019 Annual Wellness Visit (AWV) Annual Wellness Visit (AWV) [facility] Work Phone: Start: 2009 ADVANCE DIRECTIVE DISCUSSION ADVANCE DIRECTIVE DISCUSSION [facility] Start: 2009 Fall risk assessment Falls Risk Assessment [facility] Start: 2009 Pneumococcal 65+ years Vaccine (1 of 1 - PPSV23) Pneumococcal 65+ years Vaccine (1 of 1 - PPSV23) [facility] Work Phone: Start: 2009 PNEUMOCOCCAL: 65+ (1 - PCV) PNEUMOCOCCAL: 65+ (1 - PCV) [facility] Start: 2009 PNEUMOVAX AGE 65 AND OVER WITH 5YR LOOKBACK (#1) PNEUMOVAX AGE 65 AND OVER WITH 5YR LOOKBACK (#1) [facility] Start: 1994 Shingles Vaccine (1 of 2) Shingles Vaccine (1 of 2) [facility] Work Phone: Start: 1994 SHINGRIX VACCINE (1 of 2) SHINGRIX VACCINE (1 of 2) [facility] Start: 1994 Tuberculosis screening COLORECTAL CANCER SCREENING,SEE MODIFIER [facility] Start: 1989 DIABETES SCREEN DIABETES SCREEN [facility] Start: 1979 LIPID SCREEN LIPID SCREEN [facility] Start: 1963 DTaP/Tdap/Td vaccine (1 - Tdap) DTaP/Tdap/Td vaccine (1 - Tdap) [facility] Work Phone: Start: 1963 Urine microalbumin profile DTAP,TDAP,TD (1 - Tdap) [facility] Start: 1962 Diabetes: Urine Albumin-Creatinine Ratio for [facility] Diabetes: Urine Albumin-Creatinine Ratio for [facility] Start: 1962 HEPATITIS C SCREENING HEPATITIS C SCREENING [facility] Start: 1962 Hepatitis C screening Hepatitis C Screening [facility] Start: 1956 COVID-19 Vaccine (1) COVID-19 Vaccine (1) [facility] Work Phone: Start: 1956 Depression screening using PHQ-9 (Patient Health Questionnaire 9) score [facility] Start: 1954 Diabetic foot examination Foot Exam [facility] Start: 1954 Lipid panel Lipid screen [facility] Work Phone: Start: 1954 Microalbumin measurement, urine, quantitative Urine Microalbumin [facility] Start: 1954 Ophthalmic examination and evaluation Ophthalmology Exam [facility] Start: 1947 History and physical examination, annual for health maintenance Wellness Visit [facility] Start: 1944 Hemoglobin A1c measurement A1C [facility] Start: 1944 Hepatitis C screening Hepatitis C screen [facility] Work Phone: Start: 1944 Medicare Annual Wellness (AWV) Medicare Annual Wellness (AWV) [facility] Albumin [Moles/volum e] in Serum or Plasma [facility] Albumin/Globulin ratio [facility] Blood glucose - POCT [employer] Work Phone: Comment on above: As Needed until discontinued starting Cobalamin (Vitamin B 12) [Mass/volume] in Serum or Plasma [facility] End: 05-19-2021 Creatinine [Mass/volume] in Serum or Plasma Creatinine, serum Lab STAT One Time for 1 Occurrences starting 05/19/2021 until 05/19/2021 [employer] Work Phone: Comment on above: One Time for 1 Occurrences starting 04/22 until 05/19/2021 End: 10-05-2022 CT of head without contrast CT Head Or Brain Without Contrast Imaging Routine Tremor 1 Occurrences starting 10/05/2021 until 10/05/2022 [facility] Comment on above: 1 Occurrences starting 10/05/2021 until 10/05/2022 EKG 12 Lead [facility] Work Phone: Electrophoresis: [id number] [facility] Electrophoresis: aamir ma globulin [facility] Folic acid measureme nt, RBC [facility] Globulin measurement [facility] IgA [Mass/volume] in Serum or Plasma [facility] IgG [Mass/volume] in Serum or Plasma [facility] IgM [Mass/volume] in Serum or Plasma [facility] End: 05-19-2021 Intermittent pulse oximetry Pulse Oximetry Spot Check Respiratory Care Routine One Time for 1 Occurrences starting 05/19/2021 until 05/19/2021 [employer] Work Phone: Comment on above: One Time for 1 Occurrences starting 04/22 until 05/19/2021 [place]/lambda light c winsome ratio [facility] Lambda light chains. free [Mass/volume] in Serum or Plasma [facility] MR Brain WO and W contrast IV [facility] MR Brain WO contrast [facility] MR Cervical spine [facility] MR Lumbar spine [facility] End: 05-11-2021 Nasal Cannula Oxygen Nasal Cannula Oxygen Respiratory Care Routine As Needed until discontinued starting 05/11/2021 [employer] Work Phone: Comment on above: As Needed until discontinued starting End: 10-05-2022 [place] Brain Datscan SPECT CT Single Area Single Day [place] Brain Datscan SPECT CT Single Area Single Day Imaging Routine Tremor 1 Occurrences starting 10/05/2021 until 10/05/2022 [facility] Work Phone: Comment on above: 1 Occurrences starting 10/05/2021 until 10/05/2022 Oxygen therapy [[facility] Data Set] Initiate Oxygen Therapy Protocol Respiratory Care Routine Daily until discontinued starting 05/19/2021 [employer] Work Phone: Comment on above: Daily until discontinued starting 2020 Patient Education [facility] Work Phone: Patient referral [facility] Work Phone: End: 05-19-2021 Potassium w/ Reflex to Magnesium Potassium w/ Reflex to Magnesium Lab Routine One Time for 1 Occurrences starting 05/19/2021 until 05/19/2021 [employer] Work Phone: Comment on above: One Time for 1 Occurrences starting 04/22 until 05/19/2021 End: 05-19-2021 , urine POCT , urine POCT Point of Care Testing Routine One Time for 1 Occurrences starting 05/19/2021 until 05/19/2021 [facility] Work Phone: Comment on above: One Time for 1 Occurrences starting 04/22 until 05/19/2021 Protein electrophore sis panel - Serum or Plasma [facility] End: 05-19-2021 Protime-INR Protime-INR Lab STAT One Time for 1 Occurrences starting 05/19/2021 until 05/19/2021 [facility] Work Phone: Comment on above: One Time for 1 Occurrences starting 04/22 until 05/19/2021 PT PLAN OF CARE CERTIFICATION PT PLAN OF CARE CERTIFICATION Procedures Routine Parkinson disease (HCC) Ordered: 03/29/2022 [facility] Work Phone: Comment on above: Ordered: 03/29/2022 Serum immunofixation [facility] SPEECH PLAN OF CARE CERTIFICATION SPEECH PLAN OF CARE CERTIFICATION Procedures Routine Parkinsonism, unspecified Parkinsonism type ([facility]) Dysphagia, oropharyngeal phase Dysarthria Ordered: 03/29/2022 [facility] Work Phone: Comment on above: Ordered: 03/29/2022 Spirometry panel Incentive marinan metry Respiratory Care Routine Q1H PRN until discontinued starting 05/19/2021 [facility] Work Phone: Comment on above: Q1H PRN until discontinued starting 04/22 Urine immunofixation [facility] Urine kappa light ch ain measurement [facility] Immunizations Immunization Date Immunization Notes Care Provider Fa heidi 12-05-2024 tetanus toxoid, redu aman diphtheria toxoid, and acellular pertussis vaccine, adsorbed Dr. Ron Cooley MD Work Phone: [facility] Payers Date Payer Category Payer Private Health Insurance [facility] Mem crow [id number] 2025 Unknown [id number] 2024 Self-pay [id number] 2021 Unknown [employer] [id number] 2021-Present [phone] [address] [place] [address] [id number] 1.2.840.983815.1.13.385.2 .7.3.282133.315 2021 Unknown [id number] 2021 Unknown [id number]. 1.13.385.2 .7.3.232478.315 2017 [employer] ( and others) [id number] 1.2.840.593294.1.13.239.2 .7.3.055400.315 2009 Medicare [id number] 1.2.840.735199.1.13.385.2 .7.3.325816.315 2009 Medicare 1.2.840.757589. 1.13.385.2 .7.3.129074.315 2009 Medicare [id number] 1.2.840.746103.1.13.239.2 .7.3.008164.315 2002 Self-pay [id number] 1.2.840.075470.1.13.159.2 .7.3.377136.315 1944 Unknown [id number] 2.16.840.1.864449.3.579.2 .900 1944 Unknown [id number] 2.16.840.1.791910.3.579.2 .900 1944 Unknown [id number] 2.16.840.1.648462.3.579.2 .900 1944 Unknown [id number] 2.16.840.1.399412.3.579.2 .900 1944 Unknown [id number] 2.16.840.1.185887.3.579.2 .900 1944 Unknown [id number] 2.16.840.1.325084.3.579.2 .900 1944 Unknown [id number] 2.840.1.420836.3.579.2 .900 1944 Unknown [id number] 2.16.840.1.071880.3.579.2 .900 1944 Unknown [id number] 2.16.840.1.877126.3.579.2 .900 1944 Unknown [id number] 2.16.840.1.202375.3.579.2 .627 1944 Unknown [id number] 2.16.840.1.978361.3.579.2 .627 Unknown [id number] 2.16.840.1.793103.3.579.2 .462 Unknown [id number] 2.16.840.1.207263.3.579.2 .462 Unknown [id number] 2.16.840.1.481256.3.579.2 .462 Unknown [id number] 2.16.840.1.466475.3.579.2 .462 Unknown [id number] 2.16.840.1.357941.3.579.2 .462 Unknown [id number] 2.16840.1.147545.3.579.2 .462 Unknown [id number] 2.16840.1.828109.3.579.2 .462 Unknown [id number] 2.16.840.1.870971.3.579.2 .462 Unknown [id number] 2.840.1.807344.3.579.2 .462 Unknown [id number] 2.840.1.205488.3.579.2 .462 Unknown [id number] 2.840.1.242806.3.579.2 .462 Unknown [id number] 2.840.1.451005.3.579.2 .462 Unknown [id number] 2.840.1.804544.3.579.2 .462 Unknown [id number] 2.840.1.828258.3.579.2 .462 Unknown [id number] 2.840.1.343226.3.579.2 .462 Unknown [id number] 2.840.1.010170.3.579.2 .462 Unknown [id number] 2.840.1.440929.3.579.2 .462 Unknown [id number] 2.840.1.238555.3.579.2 .462 Unknown [id number] 2.840.1.528975.3.579.2 .462 Unknown [id number] 2.840.1.145318.3.579.2 .462 Unknown [id number] 2.840.1.736767.3.579.2 .462 Unknown [id number] 2.840.1.201888.3.579.2 .462 Unknown [id number] 2.840.1.053633.3.579.2 .462 Unknown [id number] 2.16.840.1.177847.3.579.2 .462 Unknown [id number] 2.16.840.1.102801.3.579.2 .462 Unknown [id number] 2.16.840.1.807488.3.579.2 .462 Unknown [id number] 2.16.840.1.783104.3.579.2 .462 Unknown [id number] 2.16.840.1.277748.3.579.2 .462 Social History Date Type Detail Facility Tobacco smoking stat [facility] Unknown if ever smoked [facility] Start: 1945 Sex Assigned At Not on file [facility] Start: 05-05-2021 End: 05-11-2025 Tobacco smoking status NCIS Former smoker [facility] Work Phone: Start: 11-20-1948 End: 11-20-1998 History of tobacco use Current smoker [facility] Start: 11-20-1948 End: 11-20-1998 History of tobacco use Cigarette Smoker [facility] Start: 05-05-2021 End: 11-08-2022 Cigarettes smoked current (pack per day) - Reported [facility] Work Phone: Start: 05-05-2021 End: 08-04-2022 Tobacco use and exposure Never used [facility] Start: 05-05-2021 End: 11-08-2022 Alcohol intake Current non-drinker of alcohol (finding) [facility] Work Phone: Start: 11-15-2021 End: 09-02-2022 Exposure to SARS-CoV-2 (event) Not sure [facility] Start: 01-28-2022 End: 08-07-2023 Tobacco smoking status NCIS Tobacco smoking consumption unknown [facility] Start: 10-05-2021 End: 12-12-2022 Alcohol intake Lifetime non-drinker (finding) [facility] Start: 1945 Sex Assigned At Male [facility] Start: 08-25-2021 History SDOH Alcohol Frequency 1 [facility] Start: 07-25-2022 End: 08-04-2022 Exposure to SARS-CoV-2 (event) Yes [facility] Start: 06-20-2022 End: 02-03-2025 Sex Male (finding) [facility] Start: 11-08-2022 End: 04-13-2025 Alcohol Use Disorder Identification Test - Consumption [AUDIT-C] [facility] How often to you hav e a drink containing alcohol? Never [facility] How many standard dr inks containing alcohol do you have on a typical day? Patient does not drink [facility] Medical Equipment Procedure Code Equipment Code Equipment Origin al Text Equipment Identifier Dates [id number] Start: 01-15-2018 SURE COMFORT PEN NEEDLES 31G X 8 MM MISC [id number] Start: 12-28-2017 blood sugar diagnostic (FreeStyle Lite Strips) strips [id number] Start: 01-15-2018 pen needle, diab etic 31 gauge x 5/16 Ndle [id number] Start: 12-28-2017 Functional Status Date Assessment Result Facility 04-13-2025 Total score [AUDIT-C] 0 04/13/20 8:48 PM EDT Cielo Valverde RN [facility] Mental Status Date Assessment Result Facility 05-11-2025 Cognitive function Level Of Cons ciousness Awake;Alert;Appropriate;Follow s Commands [facility] Work Phone: 10-12-2024 Cognitive function Awake;Alert;A ppropriate;Follow s Commands [facility] Work Phone: 01-28-2022 Cognitive function Level Of Cons ciousness Awake;Alert;Appropriate;Follow s Commands [facility] Work Phone: Clinical Notes 05-05-2021 to 05-11-2025 Note Date & Type Note Facility 05-11-2025 Discharge summary [facility] 05-11-2025 Discharge summary Note Date/Time May 11, 2025 6:49pm [facility] Medical Records Department [address] [place] [address] Emergency Department Summary 05/11/25 MR#: [id number] Acct: [id number] Name: KEVIN GRIFFITH Rep #:[id number] : [...] Care Provider] - As Needed Print Language: Lebanese Disposition Disposition: Home, Self Care What to do if you have Problems For any increased pain, shortness of breath, bleeding, nausea or vomiting, chestpain, or any unexpected problems, contact your Primary Care Provider. Call [facility] ([phone]) or report to the closest Emergency Room. Call 911 if necessary. 05/11/251848 <Electronically signed by Dano Minor MD> Cosigner Signature (if applicable): CC: Dr. Ron Cooley MD ~ Signed [facility] Work Phone: 1(985) 384-940006-20-2025 Procedure note [facility] Speech Pathology [address] [place] [address] Modified Barium Swallow Study MR#: [id number] Acct: [id number] Name: KEVIN GRIFFITH Rep #:[id number] : 1945 79 From: Heather Braun, [facility]IR[facility] Modified Barium Swallow Patient Information Study Date: 05/09/25 Study Time: 13:05 Direct Billable Minutes: 120 Total Minutes procedure & reportin Diagnosis: Dysphagia R13.10 Referring Physician: Vick Santo Reason for Referral: The patient presents for repeat MBSS recommended by his OP [employer]. Patient and wifereport coughing w/ food and [...] cup: Result: 2= enter airway/above vocal folds/ejected [place] Thick Liquid via large single sip: cup: [...] sizes taken during MBSS were large/sequential despite [employer] cues for small sip. Decreased bolus size is recommended to decrease aspiration risk. [employer] provided information re: bolus control cup. The [...] Supervision: Assist as needed ( informed the [employer] CHIR[employer]RA[employer] that supervision at each meal is not possible,[employer]ATE OF CHIROPRACTIC recommends supervision as much as able to [...] further education on strategies & risks. Comment: [employer] provided extensive education w/ pt and in results and recommendations of MBSS via review of some images, verbal discussion, and handouts (Easy to [place] texture information/testing, MBSS Recommendations, and [place] Bolus Control Cup information). Education well received. Pt would benefit from continued training in safe swallowing precautions. Status Active ST Patient: Active Contact Information [facility] Speech Therapy:: Heather Titus M.A. CCC-DO[employer]ATE OF CHIROPRACTIC? Speech-Language Pathologist?? [facility] [address] [place] [address]? [email or web address]?? [phone] 05/09/25 [address] CCC-DO[employer]ATE OF CHIROPRACTIC> Date/Time Heather Titus M.A. CCC-DO[employer]ATE OF CHIROPRACTIC Co-Signature Required for all Medicare patients Date/Time Co-Signature CC: ~ [facility]05-25-2025 Hospital Discharge instructions* Discharge Instructions* J Erna Powell MD - 04/13/2025 9:41 PM EDT You had 10 stitches placed. Please present to an urgent care, your primary care physician, or back to the emergency department in 5-7 days to have your stitches removed. * Attachments The following attachments cannot be sent through Care Everywhere. * Nose Fracture (Lebanese) documented in this [facility]05-25-2025 Emergency department Note* Chetan Powell MD [...] CT maxillofacial I reviewed [facility] 1 prescription, for [place] CT demonstrating bilateral nasal bone fractures. The [...] initial encounter Medications lidocaine-EPINEPHrine (Xylocaine W/EPI) 1 %-1:596106 injection 10 mL (has no administration in [...] Consent obtained: Verbal Consent given by: Patient [place] protocol: Imaging studies available: yes Patient identity [...] Discharge 04/13/2025 09:39:45 PM PATIENT REFERRED TO: [facility] [address] [address] Schedule an appointment as soon [...] scheduled for the surgery on 04/17/2018 at [facility] COPD (chronic obstructive pulmonary disease) ([facility]) Diabetes mellitus type 2, controlled (CMS/HCC) ([facility]) [place] (hard of hearing) HAS HEARING AID BOTH EARS , BUT DID NOT WEAR THEM Hyperlipidemia Hypertension M[place]IS[place] on CPAP [2] Past Surgical History: Procedure Laterality Date COLONOSCOPY COLONOSCOPY ELBOW SURGERY Left 1990 Lateral epicondylitis surgery EYE SURGERY bilat cataracts and implants JOINT REPLACEMENT Bilateral TKA L 2005, TKA R 2011 SKIN BIOPSY SPINAL FUSION 2000 L2,3,4; AT [facility] WRIST ARTHROSCOPY (HISTORICAL) Left 04/17/2018 [3] Family [...] forehead above left eye documented in this [facility]SC[facility]innati [facility] [id number] Emergency department Triage note* Cielo Valverde RN - 04/13/2025 8:38 PM EDT Pt presents to ED via EMS from restaurant for c/o left frontal head lac after losing footing and falling onto face on the ground. Pt has hx of parkinson's. Abrasion noted to forehead, small lac notedto bridge of nose as well as a large lac to forehead above left eye [id number] Physician Emergency department Note* Chetan Powell MD [...] CT maxillofacial I reviewed external records from: [facility] demonstrating 1 prescription, for [place] CT demonstrating bilateral nasal bone fractures. The [...] initial encounter Medications lidocaine-EPINEPHrine (Xylocaine W/EPI) 1 %-1:100559 injection 10 mL (has no administration in [...] Consent obtained: Verbal Consent given by: Patient [place] protocol: Imaging studies available: yes Patient identity [...] Discharge 04/13/2025 09:39:45 PM PATIENT REFERRED TO: [address] [address] Schedule an appointment as soon [...] scheduled for the surgery on 04/17/2018 at [facility] COPD (chronic obstructive pulmonary disease) ([facility]) Diabetes mellitus type 2, controlled (CMS/HCC) ([facility]) [place] (hard of hearing) HAS HEARING AID BOTH EARS , BUT DID NOT WEAR THEM Hyperlipidemia Hypertension M[place]IS[place] on CPAP [2] Past Surgical History: Procedure Laterality Date COLONOSCOPY COLONOSCOPY ELBOW SURGERY Left 1990 Lateral epicondylitis surgery EYE SURGERY bilat cataracts and implants JOINT REPLACEMENT Bilateral TKA L 2005, TKA R 2011 SKIN BIOPSY SPINAL FUSION 2000 L2,3,4; AT [facility] WRIST ARTHROSCOPY (HISTORICAL) Left 04/17/2018 [3] Family [...] Drug use: No Chetan Powell MD 04/13/252221 [id number] Discharge summary [facility] Medical Records Department [address] [place] [address] Emergency Department Summary 04/09/25 MR#: [id number] Acct: [id number] Name: KEVIN GRIFFITH Rep #:[id number] : [...] take blood thinners. Tetanus Immunization: <5 years [facility] Medical History Parkinson's disease Right bundle branch [...] change from the prior exam. Reading Location: [facility] Cervical Spine CT 04/09/25 11:34 IMPRESSION: 1. No acute fracture. 2. Degenerative changes of the cervical spine as described. Reading Location: [facility] Discharge Plan Triage Chief Complaint: Head Injury ED Provider: Surya Dumont Dx/Rx/DC Orders Clinical Impression: Fall, Laceration of scalp Instructions: ED Head Injury (Adult), ED Laceration Scalp Stitches or [place] Prescriptions: No Action pravastatin 80 mg tablet [...] wound, new or worsening symptoms. Print Language: Lebanese Disposition Disposition: Home, Self Care What to do if you have Problems For any increased pain, shortness of breath, bleeding, nausea or vomiting, chestpain, or any unexpected problems, contact your Primary Care Provider. Call [facility] ([phone]) or report tothe closest Emergency Room. Call 911 if necessary. 04/09/25 1255 Cosigner Signature (if applicable): CC: Dr. Ron Cooley MD ~ Signed [facility]05-21-2025 Radiology Diagnostic study note [facility] Imaging Services [address] [place] [address] Spine Cervical without Contras MR#: [id number] Acct: [id number] Name: KEVIN GRIFFITH Rep #: [id number] : 1945 M 79 From: Kristy Corey MD PCP: Dr. Ron Cooley MD Status: RE G ER Study:Spine Cervical without Contras Date of Exam: 04/09/25 Exam# [id number] Ordering Dr: Surya Dumont MD EXAM: CT [...] the cervical spine as described. Reading Location: [facility] CC: Dr. Surya Dumont MD; Dr. Ron Cooley MD ~ Border Patrol Agent: Signed [facility]05-21-2025 Radiology Diagnostic study note [facility] Imaging Services [address] [place] [address] Brain/Head without Contrast MR#: [id number] Acct: [id number] Name: KEVIN GRIFFITH Rep #: [id number] : 1945 M 79 From: Kristy Corey MD PCP: Dr. Ron Cooley MD Status: RE G Study:Brain/Head without Contrast Date of Exa m: 04/09/25 Exam# [id number] Ordering Dr: Surya Dumont MD EXAM: CT [...] change from the prior exam. Reading Location: [facility] CC: Dr. Surya Dumont MD; Dr. Ron Cooley MD ~ Border Patrol Agent: Signed [facility]05-21-2025 Hospital Discharge instructions Additional Instructions Have brandi removed by your primary care provider in 7 to 10 days. There were a total of 5 brandi inserted. Return to the emergency department with fever, drainage of pus from wound, new or worsening symptoms.[facility] Work Phone: 1(865) 408-413903-28-2025 Radiology Diagnostic study note [facility] Imaging Services [address] [place], [place] [address] Spine Cervical without Contras MR#: [id number] Acct: [id number] Name: KEVIN GRIFFITH Rep #: [id number] : 1945 M 79 From: Roopa Corbett MD PCP: Dr. Ron Cooley MD Status: RE G ER Study:Spine Cervical without Contras Date of Exam: 02/14/25 Exam# [id number] Ordering Dr: Aziza Soto DO PROCEDURE: SPINE [...] ACUTE CERVICAL FRACTURE. DEGENERATIVE CHANGES. Reading Location: [facility] CC: Dr. Ron Cooley MD; Dr. Joe Soto DO ~ Border Patrol Agent: Signed [facility]03-28-2025 Radiology Diagnostic study note [facility] Imaging Services [address] [place] [address] Brain/Head without Contrast MR#: [id number] Acct: [id number] Name: KEVIN GRIFFITH Rep #: [id number] : 1945 M 79 From: Roopa Corbett MD PCP: Dr. Ron Cooley MD Status: RE G ER Study:Brain/Head without Contrast Date of Exa m: 02/14/25 Exam# [id number] Ordering Dr: Aziza Soto DO EXAM: BRAIN/HEAD [...] ischemic change and age-related change. Reading Location: [id number] CC: Dr. Ron Cooley MD; Dr. Joe Soto DO ~ Border Patrol Agent: Signed [facility]03-20-2025 Evaluation note* Diagnosis Onset Date Resolution [...] Polyneuropathy chronic March 20, 2 025 3:22pm [facility] Work Phone: 1(905) 466-555003-04-2025 Radiology Diagnostic study note [facility] Imaging Services [address] [place] [address] Chest PA and Lateral MR#: [id number] Acct: [id number] Name: KEVIN GRIFFITH Rep #: [id number] : 1945 M 79 From: Kristy Corey MD PCP: Dr. Ron Cooley MD Status: RE G CLI Study:Chest PA and Lateral Date of Exam: 01/21/25 Exam# [id number] Ordering Dr: Ron Cooley MD EXAM: XR Chest, 2 Views CLINICAL INDICATION: TECHNIQUE: Frontal and lateral views of the chest. COMPARISON: No relevant prior studies available. FINDINGS: LUNGS AND PLEURAL SPACES: Unremarkable. No consolidation. No pneumothorax. HEART: Unremarkable. No cardiomegaly. MEDIASTINUM: Unremarkable. Normal mediastinal contour. BONES/JOINTS: Unremarkable. No acute fracture. RAD/Chest PA and Lateral IMPRESSION: No acute cardiopulmonary process. [facility] CC: Dr. Ron Cooley MD ~ Border Patrol Agent: Signed [facility]01-21-2025 Evaluation note* Diagnosis Onset Date Resolution Status Admit Date Diplopia acute December 10, 2024 10:37am Dysphagia acute December 10, 2024 10:37am Abnormality of gait and mobility chronic December 10 10:37am Dementia chronic December 10, 2024 10:37am Parkinson's disease chronic 2024 10:37am Polyneuropathy chronic December 102024 10:37am [facility] Work Phone: 1(767) 170-219201-21-2025 Evaluation note* Diagnosis Onset Date Resolution Status [...] 06, 2025 1:00pm Polyneuropathy chronic January 1:00pm [facility] Work Phone: 1(789) 991-871401-21-2025 Evaluation note* Diagnosis Onset Date Resolution Status [...] 3:22pm Polyneuropathy chronic March 20, 2 3:22pm [facility] Work Phone: 1(318) 721-973508-02-2023 [facility] 02-15-2023 NoteHNO ID: [id number] Author: Kori Ryder, PT, DPT Service: ? Author Type: Physical Therapist Type: Progress Notes Filed: 02/15/2023 7:45 AM Note Text: 02/15/2023 [facility] PHYSICAL THERAPY [...] to fx of foot. Kori Ryder, PT, [facility]03-28-2023 Miscellaneous Notes* Telephone Encounter - Seven Harrison RN - 02/14/2023 3:08 PM EDT MC message sent to patient and for further assessment. Awaiting reply. YVONNE Naik, RN February 14, 2023 3:08 PM * Telephone Encounter - Seven Harrison RN - 02/14/2023 3:04 PM EDT Received voicemail from patients' on Mon02/14/2023 2:28 PM Transcript below: This is Brennen Griffith. My phone number is [phone]. I'm calling for my Kevin Griffith. His [...] really bad or it's gonna be a shelter and I don't wannado that so please [...] is very concerned. Please call her at [phone]. Raeann Carmita [facility] Farooq [facility] February 11, 2023 2:01pm Note Date/Time February 11, 2023 1:2 0pm [facility] Medical Records Department [address] [place] [address] Emergency Department Summary 02/11/23 MR#: [id number] Acct: [id number] Name: KEVIN GRIFFITH Rep #:[id number] : [...] bear weight on it since the injury. [facility] Medical History Arthritis Back problem Cataract Essential [...] no malocclusion, able to move his mandible jgzj-qnd-tlavb without any discomfort. Zygomatic arch is nontender [...] your Primary Care Provider. Call [facility] ([phone]) or report to the closest Emergency Room. Call 911 if necessary. 02/11/23 1401 <Electronically signed by Osman Farooq MD> Cosigner Signature (if applicable): CC: Dr. Ron Cooley MD; Dr. Arnaud Jean-Baptiste MD ~ Signed [facility] Work Phone: 1(451) 680-901602-24-2023 Miscellaneous Notes* Telephone Encounter - Karen Parra RN - 01/13/2023 2:26 PM EST Received voicemail 01-13-23 at 12:31 PM. My name is Brennen Griffith. My phone number is [phone]. This is in regard to Kevin Griffith. [...] is Brennen Griffith. My phone number is [phone]. My 's name is Kevin Griffith. He [...] to provider for review. documented [facility]-2023 NoteHNO ID: [id number] Author: Leni Ruiz APRN.FRANCHISE MANAGER Service: ? Author Type: Nurse Practitioner Type: Progress Notes Filed: 12/13/2022 10:48 PM Note Text: [facility] - FOLLOW UP EVALUATION Ron Cooley MD [address] [facility] [address] [facility] [address] Dear Ron Cooley MD: I had the [...] Flowsheet Row OT/PT/Speech Visit from 10/04/2022 in [facility] Outpatient Physical Therapy OT/PT/Speech Visit from 08/25/2022 in [facility] Outpatient Physical Therapy Global Physical [...] three times daily. insulin (more content not included)...[facility]01-23-2023 Instructions* Patient Instructions* Leni Ruiz APRN.FRANCHISE MANAGER - 12/12/2022 2:56 PM EST It [...] canhave them on file here at the [facility]. Interested in clinical research? Not currently Movement Disorders Medication Schedule: Medications 6am 12pm 5pm Bedtime Sinemet 25/100 2 2 1 1 Sertaline 50mg 1 Return in about 6 months (around 06/11/2023). If there are any concerns before your next visit, please call or you can send a message through [facility]Loop. You can also now schedule and select appointments through HealthLoop. Leni Ruiz APRN.FRANCHISE MANAGER documented in this encounterKet[facility]01-23-2023 History of Present illness Narrative* Leni Ruiz APRN.FRANCHISE MANAGER - 12/12/2022 2:00 PM EST [facility] - FOLLOW UP EVALUATION Ron Cooley MD [address] [facility] [address] Dear Ron Cooley MD: I had the [...] Flowsheet Row OT/PT/Speech Visit from 10/04/2022 in [facility] OT/PT/Speech Visit from 08/25/2022 in [facility] Global Physical [...] D3 50 MCG, 2,000 UNIT, GUMMIES) fluticasone hlgntjd-ystjwvxcumjd-hdpkjdmwzc (TRELEGY ELLIPTA) 200-62.5-25 mcg powder inhaler Inhale1 [...] OXYGEN-AIR DELIVERY SYSTEMS MISC Inhale as instructed. [employer] Clean Tech CALIXTO 2 SENSOR kit use to TEST [...] 37.42 kg/m . Movement Disorders Scales Performed: Masterson Cognitive Assessment (MoCA) Visuospatial/Executive 5 Naming 2 [...] parkinsonian. Then he underwent surgical evaluation at [facility] and DaTscan done there was [...] canhave them on file here at the [facility]. Interested in clinical research? Not currently Updated Movement Disorders Medication Schedule: Medications 6am 12pm 5pm Bedtime Sinemet 25/100 2 2 1 1 Sertaline 50mg 1 Level of service : 94142 (40-54 min). Time spent 51 ( 1:54pm-2:45pm) min on the day of service, which included preparing to see the patient, psze-dv-gvvo patient care, completing clinical documentation, obtaining and/or reviewing separately obtained history, performing a medically appropriate examination, and counseling and educating the patient/family/caregiver. Leni Ruiz APRN.FRANCHISE MANAGER documented in this encounterKettering Health [facility]11-21-2022 Miscellaneous Notes* Telephone Encounter - Thaddeus Wilkinson MD - 10/10/2022 3:30 PM EST Thanks for the FYI. Well done! JHS * Telephone Encounter - Seven Harrison RN - 10/10/2022 2:32 PM EST Received voicemail from patient on Mon10/10/2022 9:09 AM Transcript below: Morning this is Kevin Griffith and my phone number is [phone]. I calling to find out if there'sa [...] Voicemail left directing patient to a detailed HealthLoop message. Requested reply via MC or [facility]. Provided office number. Message shared with covering provider as CAR is OOO. Seven Harrison, MSN, RN October 10, 2022 2:44 PM documented in this encounterKettering Health [facility]11-15-2022 NoteHNO ID: [id number] Author: Kori Ryder, PT, DPT Service: ? [...] Time Minutes (timed/untimed): 45 Kori Ryder PT, [facility]11-15-2022 History of Present illness Narrative* Kori Ryder [...] Kori Ryder PT, DPT documented in this encounterKettering Health [facility]10-28-2022 Miscellaneous Notes* Addendum Note - Jaylyn Nieves [...] Orders * Telephone Encounter - Lena Cleo [facility] - 09/16/2022 11:40 AM EDT Script pending to go to [facility]. documented in this encounterKettering Health [facility]10-28-2022 Miscellaneous Notes* Telephone Encounter - Seven Harrison RN - 09/16/2022 8:48 AM EDT Called and left voicemail that an updated RX had been sent for the Cymbalta. Provided office number for [facility]O and option to message via HealthLoop. YVONNE Naik, RN September 16, 2022 8:48 [...] 1:54 PM * Telephone Encounter - Seven aHrrison RN - 09/13/2022 12:30 PM EDT Returned [...] like to speak with Stefania. CALLBACK #: [phone] OK TO LEAVE MESSAGE: ok only on this number - do not leave at home number LAST FUV: 08/04/22 with CAR documented in this encounterKettering Health [facility]10-27-2022 NoteHNO ID: [id number] Author: Kori Ryder, PT, DPT Service: ? [...] Patient to be seen for Therapeutic exercise (27435);Neuromuscular re-education (27653);Manual therapy (88992);Therapeutic activities (14030);Self-alf management (47514);Gait Training (47061);Functional training;General Conditioning;Body Mechanics Training;Patient/Family/Caregiver Education PLAN FOR [...] Time Minutes (timed/untimed): 45 (more content not included)...[facility] CenterSvufraeg65-96-7490 NoteHNO ID: [id number] Author: Aleida Ramirez MD Service: ? Author [...] could not see the pt. REFERRAL SOURCE: [facility] Physician - Dr. Nieves CHIEF COMPLAINT: [...] 1 tablet by mouth twice daily. fluticasone cuzfrbv-efwvfcnluzkk-xukmrilpwu (TRELEGY ELLIPTA) 200-62.5-25 mcg powder inhaler Inhale [...] Negative for malaise, signif (more content not included)...[facility]10-14-2022 History of Present illness Narrative* Aleida [...] could not see the pt. REFERRAL SOURCE: [facility] Physician - Dr. Nieves CHIEF COMPLAINT: [...] 1 tablet by mouth twice daily. fluticasone hgrregs-mfwumesbvboy-okwqdlejkw (TRELEGY ELLIPTA) 200-62.5-25 mcg powder inhaler Inhale1 [...] prior psychiatrist Therapist: No prior therapist Current Post Manager: None Last Hospitalization: Denies hospitalization. ECT: None Previous Discontinued Psychiatric Med Trials: None SUBSTANCE USE HISTORY: Nicotine: 40 py, quit 23 years ago Caffeine: Coffee, 3 cups/day Alcohol: Drank when he was younger, Marijuana: No history of use or dependence Cocaine: No history of use or dependence Opiods: No history of use or dependence SPIRITUALITY: [facility], [place]: Kevin Griffith is the oldest of 6 siblings. The patient was born and raised in [place]. He completed school He described his childhood [...] PAGER : see directory documented in this encounterKettering [facility]10-06-2022 NoteHNO ID: [id number] Author: Kori Ryder, PT, DPT Service: ? [...] Time Minutes (timed/untimed): 38 Kori Ryder PT, DPCherrington HospitalJsywkyxh94-20-7950 History of Present illness Narrative* Kori Ryder [...] Kori Ryder PT, DPT documented in this encounterKettering [facility]09-22-2022 NoteHNO ID: [id number] Author: Kori Ryder PT, DPT Service: ? [...] Planned: 4 Planned Treatment Interventions: Therapeutic exercise (86795);Neuromuscular re-education (18279);Manual therapy (02607);Therapeutic activities (75190);Self-alf management (63245);Gait Training (51006);Functional training;General Conditioning;Body Mechanics Training;Patient/Family/Caregiver Education PLAN FOR [...] the average of the (more content not included)...[facility] CenterGjlftubs05-56-1231 NoteHNO ID: [id number] Author: Jaylyn Nieves MD Service: ? Author Type: Physician Type: Progress Notes Filed: 08/04/2022 5:35 PM Note Text: [facility] - FOLLOW UP EVALUATION MD Bessie Gavin [address] [facility] [address] [facility] [address] I had the pleasure of seeing Mr. [...] 1 tablet by mouth twice daily. fluticasone pkxxpwc-fchkqphununy-fwjtsvdxjv (TRELEGY ELLIPTA) 200-62.5-25 mcg powder inhaler Inhale [...] 24 hr table (more content not included)... [facility]09-15-2022 Instructions* Patient Instructions* Jaylyn Nieves MD [...] or you can send a message through HealthLoop. You can also now schedule and select appointments through HealthLoop. Jaylyn Nieves MD documented in this encounterKettering Health [facility]09-15-2022 History of Present illness Narrative* Jaylyn Nieves MD - 08/04/2022 2:20 PM EDT [facility] - FOLLOW UP EVALUATION Ron Cooley MD [address] [facility] [address] [facility] [address] I had the pleasure of seeing Mr. [...] 1 tablet by mouth twice daily. fluticasone yrxyesd-kcfpouwlinzo-dowebvudvp (TRELEGY ELLIPTA) 200-62.5-25 mcg powder inhaler Inhale1 [...] parkinsonian. Then he underwent surgical evaluation at [facility] and DaTscan done there was [...] gait he reports both lightheadedness and imbalance. Chamberino symptomatic today upon standing but orthostatics were [...] or around: 11/03/22 Level of service : 44812 (40-54 min). Time spent 45 min on the day of service, which included preparing to see the patient, clkl-ao-gcim patient care, completing clinical documentation, performing a [...] Sincerely, Jaylyn Nieves MD documented in this encounterKettering Health [facility]09-09-2022 NoteHNO ID: [id number] Author: Kori Ryder, PT, DPT Service: ? Author Type: Physical Therapist Type: Progress Notes Filed: 07/29/2022 4:54 PM Note Text: 07/29/2022 [facility] PHYSICAL THERAPY [...] scheduled additional follow-up appointments. Kori Ryder, PT, [facility]09-01-2022 Miscellaneous Notes* Telephone Encounter - Seven Harrison RN - 07/21/2022 12:08 PM EDT Received voicemail from patient's on Rosalia 07/21/2022 10:52 AM Transcript below: Kaila my name is Brennen Griffith. My 's name is Kevin Griffith. He is a patient of Dr. Gordillo. My phone number is [phone]. I'm calling to speak to somebody regarding [...] Updates shared with MD CAR & SS, ADVERTISING ACCOUNT MANAGER. If any guidance is suggested, RN will contact with feedback. Seven Harrison, YVONNE, RN July 21, 2022 12:42 PM documented in this encounterKettering Health [facility]06-29-2022 Miscellaneous Notes* Telephone Encounter - Jaylyn Nieves [...] REJI: No Blossom S documented in this encounterKettering Health [facility]05-10-2022 NoteHNO ID: [id number] Author: Maine Medel, PT, DPT Service: ? [...] SLS >10 seconds B [facility]. Patient will demonstrate increase in B hip strength strength to 5/5 during manual muscle testing in order to improve function for balance Increase strength in ankle to 5/5 for balance. Be able to turn in a hoopa in 8 steps. Decrease tug to <10 seconds without AD for improved richard and step length Patient Goals: to learn about PD, to reduce falls Planned Interventions, Frequency, and Duration: Current Frequency: 1x/week Duration: 4 weeks (starting in one month) Total Number of Visits Planned: 4 Planned Treatment Interventions: Therapeutic exercise (98871);Neuromuscular re-education (89363);Manual therapy (20876);Therapeutic activities (58428);Self-alf management (90384);Gait Training (08186);Functional training;General Conditioning;Body Mechanics Training PLAN FOR NEXT [...] for double vision Visi (more content not included)...[facility] CenterQvkpzvwh27-21-0433 NoteHNO ID: [id number] Author: MANUEL Grande/Eric Service: ? Author Type: Occupational Therapist Type: Progress Notes Filed: 03/29/2022 5:40 PM Note Text: Episode Visit Count: 2 Therapist That Will Oversee The Plan Of Care: Maria Isabel Romano Start of Care Date: 03/29/22 Onset Date: 06/14/21 Plan of Care Certification Date: 03/29/22 Next Certification Due Date: 03/29/22 Patient Identified by Name and Date of : Yes [facility] OCCUPATIONAL THERAPY [...] WITH LEVEL OF FUNCTION: Hand Strength R Mobile Pet Groomer Position 2 (lbs): 71 lbs L Mobile Pet Groomer Position 2 (lbs): 60 lbs R Lateral [...] avoiding proteins with meds (more content not included)...[facility] CenterZaryedhv35-10-8729 NoteHNO ID: [id number] Author: Sakina Ro CCC-DOCTORATE OF CHIROPRACTIC Service: ? Author Type: Speech Language Pathologist Type: Progress Notes Filed: 03/29/2022 3:59 PM Note Text: Episode Visit Count: 1 Therapist That Will Oversee The Plan Of Care: Andrade Start of Care Date: 03/29/22 Onset Date: 11/20/20 Plan of Care Certification Date: 03/29/22 Patient Identified by Name and Date of : Yes [facility] SPEECH and [...] position 20-30 minutes following all oral intake DOCTORATE OF CHIROPRACTIC Recommendations: Swallowing Precautions;Discontinue Speech Therapy Results and [...] MBS (pt reports had MBS done at [place] last year, which pt was told 'he did fine' and no recommendations for follow up ST or diet modifications made) Clinical Swallow [place] Swallow Protocol: Fail Fail: Coughing episodes (x1 [...] clear/cough after water (more content not included)... [facility] CenterCslmryck65-74-0045 History of Present illness Narrative* Maine Medel, [...] SLS >10 seconds B [facility] [place] [facility]. Patient will demonstrate increase in B hip strength strength to 5/5 during manual muscle testing inorder to improve function for balance Increase strength in ankle to 5/5 for balance. Be able to turn in a hoopa in 8 steps. Decrease tug to <10 seconds without AD for improved richard and step length Patient Goals: to learn about PD, to reduce falls Planned Interventions, Frequency, and Duration: Current Frequency: 1x/week Duration: 4 weeks (starting in one month) Total Number of Visits Planned: 4 Planned Treatment Interventions: Therapeutic exercise (53949);Neuromuscular re- education (02600);Manual therapy (89823);Therapeutic activities (25622);Self- alf management (43493);Gait Training (62005);Functional training;General Conditioning;Body Mechanics Training PLAN FOR NEXT [...] Maine Medel PT DPT documented in this encounterKettering Health [facility]05-10-2022 History of Present illness Narrative* Sakina Ro CCC-DOCTORATE OF CHIROPRACTIC - 03/29/2022 2:49 PM EDT Episode Visit Count: 1 Therapist That Will Oversee The Plan Of Care: Andrade Start of Care Date: 03/29/22 Onset Date: 11/20/20 Plan of Care Certification Date: 03/29/22 Patient Identified by Name and Date of : Yes [facility] SPEECH and [...] position 20-30 minutes following all oral intake DOCTORATE OF CHIROPRACTIC Recommendations: Swallowing Precautions;Discontinue Speech Therapy Results and [...] MBS (pt reports had MBS done at [place] last year, which pt was told 'he [...] Eval Sound Production with Language Expression and Dry Cleaning Teacher (10647) Swallow / Dysphagia (21612): Skilled Intervention: Educated and advised patient / caregiver on texture and liquid consistency recommendations., Instructed patient / caregiver on recommended compensatory strategies to maximize safety with oral intake while maintaining nutrition, hydration and medication stability. Speech/Language Therapy (58218): Skilled Intervention: Educated and instructed patient on [...] Eval Sound Production with Language Expression and Dry Cleaning Teacher (65580), Clinical Swallow Evaluation (27814), Speech Treatment (11896) and Dysphagia Treatment (84478) Total time / Length of visit: 60 minutes Sakina Ro CCC-DOCTORATE OF CHIROPRACTIC documented in this encounterKettering Health [facility]05-10-2022 NoteHNO ID: [id number] Author: Jaylyn Nieves MD Service: ? Author Type: Physician Type: Progress Notes Filed: 03/29/2022 7:35 PM Note Text: [facility] - Multidisciplinary Clinic Jaylyn Nieves [address] [facility] [address] [facility] [address] Ron Cooley MD [address] [facility] [address] I had the pleasure of seeing Mr. [...] since last visit underwent surgical evaluation at [facility] and DaTscan done there indicative [...] addressed during this visit (more content not included)...[facility]05-10-2022 Instructions* Patient Instructions* Jaylyn Nieves MD [...] or you can send a message through HealthLoop. You can also now schedule and select appointments through HealthLoop. Jaylyn Nieves MD documented in this encounterKettering Health [facility]05-10-2022 History of Present illness Narrative* Jaylyn Nieves MD - 03/29/2022 12:27 PM EDT [facility] - Multidisciplinary Clinic Jaylyn Nieves [address] [facility] [address] [facility] [address] Ron Cooley MD [address] [facility] [address] [facility] [address] I had the pleasure of seeing Mr. [...] Then since last visit [facility] and DaTscan done there indicative [...] in 1 week Level of service : 19154 (40-54 min). Time spent 53 min on the day of service, which included preparing to see the patient, nzdp-po-poqy patient care, completing clinical documentation, counseling and [...] Sincerely, Jaylyn Nieves MD documented in this encounterKettering Health [facility]05-04-2022 Miscellaneous Notes* Telephone Encounter - Bryanna Haas MA - 03/23/2022 10:44 AM EDT I called patient to get him pre-roomed for his upcoming appointment. I had to leave a voicemail fora returned call. If patient calls back please transfer call to myself or a clinical staff member to complete this process. Thanks! Bryanna Haas MA documented in this encounterKettering Health [facility]04-28-2022 NoteHNO ID: [id number] Author: Jaylyn Nieves MD Service: ? Author Type: Physician Type: Progress Notes Filed: 03/18/2022 4:12 PM Note Text: [facility] - FOLLOW UP EVALUATION No referring provider defined for this encounter. Ron Cooley MD [facility] [address] [address] I had the pleasure of seeing Mr. [...] to be helpful Interval History Seen at [facility] for surgical evaluation. SDR was too [...] mouth three times daily. (more content not included)...[facility]04-28-2022 Instructions * Patient Instructions* Jaylyn Nieves [...] or you can send a message through HealthLoop. You can also now schedule and select appointments through HealthLoop. Jaylyn Nieves MD [facility] s [facility]idisciplinary [facility] Pre-Visit Instructions Welcome to the Parkinson s Multi-Disciplinary Clinic! These visits will consist of four separate appointments provided by Neurology, Speech Therapy, Physical Therapy and Occupational Therapy. The appointments will take place at the [facility] and all occur on the same [...] appointment. This call will serve as a xnk-tooaj-jc and be used to review your medications, [...] caregivers, and staff alike. documented in this encounterKettering Health [facility]04-28-2022 History of Present illness Narrative* Jaylyn Nieves MD - 03/17/2022 2:51 PM EDT [facility] - FOLLOW UP EVALUATION No referring provider defined for this encounter. Ron Cooley MD [address] [facility] [address] I had the pleasure of seeing Mr. [...] to be helpful Interval History Seen at [facility] for surgical evaluation. SDR was too [...] Then since last visit underwent [facility] and DaTscan done there indicative [...] or around: 07/17/22 Level of service : 64323 (40-54 min). Time spent 54 min on the day of service, which included preparing to see the patient, fmul-yv-rjds patient care, completing clinical documentation, obtaining and/or [...] Sincerely, Jaylyn Nieves MD documented in this encounterKettering Health [facility]03-24-2022 History of Present illness Narrative* Jaspreet Qureshi MA - 02/10/2022 11:48 AM EDT Images from the original note were not included. SDR for Yujose miguel_S came in at 0.34 with 973 available elements. Other than the low SDR no significantCT deviations noted. documented in this [id number] History of Present illness Narrative* Barb Morton MD - 12/22/2021 10:05 AM EST Video Visit [facility], NEUROSCIENCE [address] [facility] [address] [facility] [address] Via Real-time Synchronous Audiovisual [facility] 12/21/2021 Barb Morton MD Provider Location: REPLACED BY [facility] Patient Location Toll Relief Operator: None Patient Location: Patient's Home Patient: Kevin [...] that there are some limitations compared to ufhq-tk-faer evaluations. We elected to proceed. Subjective Patient [...] Office# Barb Morton MD documented in this [id number] Instructions* Patient Instructions* Barb Morton MD - 12/21/2021 1:33 PM EST Parkinson's Disease Continue the medication Use seroquel at night If you decide that you want to switch to Dr Royal let me know documented in this [id number] Miscellaneous Notes* Telephone Encounter - Jaspreet Qureshi MA - 11/09/2021 11:43 AM EST Spoke to Bryanna (Pharmacist) for clarification of patient's prescription carbidopa-levodopa (SINEMET) 25-100 mg per tablet [facility] will disp 540 (90 day supply) will 3 refills Please sign script that was called in documented in this [id number] History of Present illness Narrative* Barb Morton [...] pt on at 1230pm. documented in this [id number] History of Present illness Narrative* Barb Morton MD - 11/05/2021 12:21 PM EST I called on 11/05/21 to discuss the results of the meeting and to discuss questions documented in this [id number] History of Present illness Narrative* Jim Bradford [...] Dr Morton will call. documented in this [id number] History of Present illness Narrative* Jaspreet Qureshi MA - 11/03/2021 2:29 PM EST Images from the original note were not included. SDR - 0.34 with 973 available elements. Other than the low SDR no significant CT deviations noted. documented in this [id number] History of Present illness Narrative* Sarah Mckenzie, PT - 10/28/2021 11:00 AM EST Images from the original note were not included. [facility] Physical Therapy Evaluation Today's Date [...] whether he wants to follow-up hereor in [place] as it is significantly closer to home. [...] medications for tremor - has tried one. Chamberino drunk all of th time. Freezing of [...] mobility Social Support: Patient lives with others. Taoism, social, or cultural considerations to be made [...] in the last 12 months: Yes (concussion) Taoism, social, or cultural considerations to be made [...] at this time were answered. CPT Code 13059 Low 74537 Moderate 24290 High History 0 1-2 3+ Comorbidities: chronic [...] Clinical Impression: . Kevin Griffith presents to [facility] outpatient neurological rehab services for PT [...] above number. Sarah Mckenzie, PT STATE LICENSE, PT.[id number] documented in this [id number] Instructions* Patient Instructions* Barb Morton MD - 10/05/2021 11:[address] Head Physical therapy DATSCAN-the yes/no Parkinson's disease test Jim Suzette is the navigator Dr. Barb Morton MD Neurology Office Information Jaspreet Qureshi MA Office# documented in this [id number] History of Present illness Narrative* Barb Morton [...] whether he wants to follow-up hereor in [place] as it [place] significantly closer to home. [...] Without Contrast; Future - Ambulatory Ref to [facility] (PT/OT/ST); Future Patient Instructions Tremor CT Head Physical therapy DATSCAN-the yes/no Parkinson's disease test Jim Bradford is the navigator Dr. Barb Morton MD Neurology Office Information Jaspreet Qureshi MA Office# Dr. Barb Morton MD Neurology Office Information Jaspreet Qureshi MA Office# Barb Morton MD documented in this [id number] History of Present illness Narrative* Roberto Carlos [...] with simple mask at 10 LPM oxygen. laboratory tech called. * Mame Machado PA-C - [...] informed. Mame Machado PA-C [facility] this [facility] Phone: [phone] 155-643006-16-2021 Hospital Discharge instructions* Instructions* Kori Casillas RN - 05/05/2021 Shower with the Hibiclens product given to you in Pre-Admission Testing. Follow the instructions and wear clean clothes to bed and clean linen on the bed the night before surgery. Follow the instructions and shower the morning of surgery and wear clean, comfortable clothes to the hospital. Please bring your [facility] Information folder on the day of [...] call your surgeon. You may use the ranch hand parking located at the main entrance on [address] [facility] and take the H elevator to the first floor for same day surgery. Take a left after exiting the elevator and check in at the desk. * Attachments The following attachments cannot be sent through Care Everywhere. * Laminotomy and Laminectomy: General Info (Lebanese) [facility] Work Phone: Discharge summary Author Surya Dumont [facility] Note Date/Time April 09, 2025 12:55 pm [facility] Medical Records Department [address] [place] [id number] Emergency Department Summary 04/09/25 MR#: [id number] Acct: [id number] Name: KEVIN GRIFFITH Rep #:[id number] : [...] take blood thinners. Tetanus Immunization: <5 years [facility] Medical History Parkinson's disease Right bundle branch [...] change from the prior exam. Reading Location: [facility] Cervical Spine CT 04/09/25 11:34 IMPRESSION: 1. No acute fracture. 2. Degenerative changes of the cervical spine as described. Reading Location: [facility] Discharge Plan Triage Chief Complaint: [...] wound, new or worsening symptoms. Print Language: Lebanese Disposition Disposition: Home, Self Care What to do if you have Problems For any increased pain, shortness of breath, bleeding, nausea or vomiting, chestpain, or any unexpected problems, contact your Primary Care Provider. Call [facility] ([phone]) or report to the closest Emergency Room. Call 911 if necessary. 04/09/25 1255 <Electronically signed by Surya Dumont MD> Cosigner Signature (if applicable): CC: Dr. Ron Cooley MD ~ Signed [facility] Work Phone: Evaluation note* Diagnosis Pre-op testing- Primary Preoperative examination, unspecified Abnormal EKG Nonspecific abnormal electrocardiogram (ECG) (EKG) Shortness of breath documented in this encounter [facility] Work Phone: Evaluation note* Diagnosis Abnormal electrocardiogram (ECG) (EKG) Shortness of breath Pre-op testing Preoperative examination, unspecified Abnormal EKG Nonspecific abnormal electrocardiogram (ECG) (EKG) documented in this encounter [facility] Work Phone: Evaluation note* Diagnosis Tremor, essential- Primary Essential and other specified forms of tremor documented in this encounter [facility] note* Diagnosis Tremor- Primary Abnormal involuntary movements documented in this encounter [facility] note* Diagnosis Tremor Abnormal involuntary movements Impaired mobility and activities of daily living Impairment of balance documented in this encounter [facility] note* Diagnosis Parkinson's disease (HCC)- Primary Paralysis agitans documented in this encounter [facility] noteNo assessment information availableWWilson Health Work Phone: evaluation note* Diagnosis Parkinsonism, unspecified Parkinsonism type (HCC)- Primary Essential tremor Essential and other specified forms of tremor Dysphagia, unspecified type Gait instability Abnormality of gait documented in this encounter [facility] note* Diagnosis Parkinsonism, unspecified Parkinsonism type (HCC)- Primary Dysphagia, oropharyngeal phase Dysarthria documented in this encounter [facility] note* Diagnosis Parkinson disease (HCC)- Primary Paralysis agitans documented in this encounter [facility] note* Diagnosis Gait instability- Primary Abnormality of gait Parkinsonism, unspecified Parkinsonism type (HCC) Dysphasia Other speech disturbance Oropharyngeal dysphagia Dysphagia, oropharyngeal phase Decreased activities of daily living (ADL) documented in this encounter [facility] note* Diagnosis Onset Date Resolution Status Essential (primary) hypertension chronic Paroxysmal atrial fibrillation [facility] Work Phone: evaluation note* Diagnosis Parkinsonism, unspecified Parkinsonism type (HCC)- Primary Depression, unspecified depression type Anxiety Anxiety state, unspecified Orthostatic lightheadedness Dizziness and giddiness Dysphagia, unspecified type documented in this encounter [facility] note* Diagnosis Parkinsonism, unspecified Parkinsonism type (HCC)- Primary Gait instability Abnormality of gait Leg weakness, bilateral Other musculoskeletal symptoms referable to limbs Imbalance Abnormality of gait documented in this encounter [facility] note* Diagnosis MELISSA (generalized anxiety disorder)- Primary Generalized anxiety disorder Depression, unspecified depression type Parkinsonism, unspecified Parkinsonism type (HCC) documented in this encounter [facility] note* Diagnosis Parkinsonism, unspecified Parkinsonism type (HCC)- Primary Gait instability Abnormality of gait Leg weakness, bilateral Other musculoskeletal symptoms referable to limbs Imbalance Abnormality of gait documented in this encounter [facility] note* Diagnosis Parkinsonism, unspecified Parkinsonism type (HCC)- Primary Orthostatic hypotension Anxiety Anxiety state, unspecified documented in this encounter [facility] note* Diagnosis Onset Date Resolution Status Parkinsons acute Essential (primary) hypertension chronic HLD (hyperlipidemia) chronic Paroxysmal atrial fibrillation [facility] Work Phone: Evaluation note* Diagnosis Onset Date Resolution Status Polyneuropathy acute Abnormality of gait and mobility chronic Dementia chronic Parkinson's disease chronic Essential (primary) hypertension chronic HLD (hyperlipidemia) chronic Paroxysmal atrial fibrillation chronic [facility] Work Phone: Evaluation note* Diagnosis Onset Date Resolution Status Abnormality of gait and mobility chronic Dementia chronic Parkinson's disease chronic Polyneuropathy chronic Fatigue noneactive [facility] Work Phone: Evaluation note* Diagnosis Onset Date Resolution Status Diplopia acute Right abducens nerve palsy a cute Abnormality of gait and mobility chronic Dementia chronic Parkinson's disease chronic Polyneuropathy chronic [facility] Work Phone: Evaluation note* Diagnosis Facial laceration, initial encounter- Primary Fall, initial encounter Open fracture of nasal bone, initial encounter [facility] Work Phone: Hospital Discharge instructions Additional Instructions [facility]: Reason for referral (narrative)No reason for referral information availableT[facility] Work Phone: Reason for Referral Status Reason Specialty Diagnoses / Procedures Re ferred By Contact Referred To Contact Open Cardiology Diagnoses Pre-op testing Abnormal EKG Shortness of breath Procedures ECHO Pharmacological Stress Test Raeann Holland, SCALE MODEL MAKER - FRANCHISE MANAGER 1 [facility] [address] [place] [address] Specialty Diagnoses / Procedures Referred By Michel higginbotham Referred To Contact Neurology Diagnoses Tremor, essential Patricia Mcgowan MD [address] [place] [address] Barb Morton MD [address] [facility] [address] [place] [address] Referral ID Status Reason Start Date Expiration Date V isits Requested Visits Authorized [id number] Pending Review 09/27/2021 09/27/2022 1 1 Specialty Diagnoses / Procedures Referred By Contac t Referred To Contact Rehabilitation [place] [address] [place] [address] [place] [address] Referral ID Status Reason Start Date Expiration Date V isits Requested Visits Authorized [id number] Authorized 10/05/2021 10/05/2022 1 1 Specialty Diagnoses / Procedures Referred By Contac t Referred To Contact Radiology Diagnoses Tremor Procedures CT Head Or Brain Without Contrast Barb Morton MD [address] [place] [address] [place] [address] Referral ID Status Reason Start Date Expiration Date V isits Requested Visits Authorized [id number] New Request 10/05/2021 10/05/2022 1 1 Specialty Diagnoses / Procedures Referred By Contac t Referred To Contact Radiology Diagnoses Tremor Procedures NM Brain Datscan SPECT CT Single Area Single Day Barb Morton MD [address] [place] [address] [place] [address] Nuclear Medicine [address] [place] [id number] Referral ID Status Reason Start Date Expiration Date V isits Requested Visits Authorized [id number] Pending Review 10/05/2021 10/05/2022 4 4 Specialty Diagnoses / Procedures Referred By Contac t Referred To Contact Diagnoses Parkinsonism, unspecified Parkinsonism type (HCC) Procedures PROVIDER ORDERED FOLLOW UP OFFICE/OUTPATIENT [facility] 60-74 MINUTES Jaylyn Nieves MD [address] [place] [id number] Referral ID Status Reason Start Date Expiration Date Visits Requested Visits Authorized [id number] Authorized PCP Requested Referral 03/17/2022 06/15/2022 1 1 Specialty Diagnoses / Procedures Referred By Contac t Referred To Contact Neurology / NEUROLOGICAL FAITH Diagnoses Parkinsonism, unspecified Parkinsonism type (HCC) Procedures CONSULT TO [facility] OFFICE/OUTPATIENT [facility] 60-74 MINUTES Jaylyn Nieves MD [address] [address] [facility] [address] [place] [address] Referral ID Status Reason Start Date Expiration Date Visits Requested Visits Authorized [id number] Authorized PCP Requested Referral 03/17/2022 03/17/2023 1 1 Specialty Diagnoses / Procedures Referred By Contac t Referred To Contact [facility] Diagnoses Parkinsonism, unspecified Parkinsonism type (HCC) Gait instability Procedures CONSULT TO PHYSICAL THERAPY PHYSICAL THERAPY EVALUATION HIGH COMPLEX 45 MINS Jaylyn Nieves MD [address] [address] Referral ID Status Reason Start Date Expiration Date Visits Requested Visits Authorized [id number] Authorized PCP Requested Referral Auto-Generate d Referral 03/29/2022 03/29/2023 99 99 Specialty Diagnoses / Procedures Referred By Contac t Referred To Contact [facility] Diagnoses Parkinsonism, unspecified Parkinsonism type (HCC) Gait instability Decreased activities of daily living (ADL) Procedures CONSULT TO PROGRAM CHECKER OCCUPATIONAL THERAPY EVAL HIGH COMPLEX 60 MINS Jaylyn Nieves MD [address] [address] Referral ID Status Reason Start Date Expiration Date Visits Requested Visits Authorized [id number] Authorized PCP Requested Referral Auto-Generate d Referral 03/29/2022 03/29/2023 99 99 Specialty Diagnoses / Procedures Referred By Contac t Referred To Contact Diagnoses Parkinsonism, unspecified Parkinsonism type (HCC) Oropharyngeal dysphagia Procedures CONSULT TO SPEECH THERAPY Jaylyn Nieves MD [address] [address] Referral ID Status Reason Start Date Expiration Date Visits Requested Visits Authorized [id number] Authorized PCP Requested Referral 03/29/2022 06/27/2022 3 3 Referral ID Status Reason Start Date Expiration Date Visits Requested Visits Authorized [id number] Authorized PCP Requested Referral 08/04/2023 1 1 Specialty Diagnoses / Procedures Referred By Contac t Referred To Contact [facility] Diagnoses Parkinsonism, unspecified Parkinsonism type (HCC) Procedures CONSULT TO PHYSICAL THERAPY PHYSICAL THERAPY EVALUATION HIGH COMPLEX 45 MINS Jaylyn Nieves MD [address] [place] [address] [facility] [id number] [place] [address] Referral ID Status Reason Start Date Expiration Date Visits Requested Visits Authorized [id number] Authorized PCP Requested Referral Auto-Generate d Referral 08/04/2022 08/04/2023 99 99 Specialty Diagnoses / Procedures Referred By Contac t Referred To Contact Diagnoses Parkinsonism, unspecified Parkinsonism type (HCC) Depression, unspecified depression type Procedures CONSULT TO PSYCHIATRY OFFICE/OUTPATIENT [facility] 60-74 MINUTES Jaylyn Nieves MD [address] [place] [address] Referral ID Status Reason Start Date Expiration Date Visits Requested Visits Authorized [id number] Pending Review PCP Requested Referral 08/04/2022 08/04/2023 1 1 Specialty Diagnoses / Procedures Referred By Contac t Referred To Contact Diagnoses Depression, unspecified depression type Procedures PROVIDER ORDERED FOLLOW UP OFFICE/OUTPATIENT [facility] 60-[place] [address] [place] [address] Referral ID Status Reason Start Date Expiration Date Visits Requested Visits Authorized [id number] Authorized PCP Requested Referral 11/28/2022 09/02/2023 1 1 Specialty Diagnoses / Procedures Referred By Contac t Referred To Contact [facility] Diagnoses Parkinsonism, unspecified Parkinsonism type (HCC) Procedures CONSULT TO PROGRAM CHECKER OCCUPATIONAL THERAPY EVAL HIGH COMPLEX 60 MINS Leni Ruiz APRN.FRANCHISE MANAGER [address] [place] [address] [facility] [address] [place] [place] [address] Referral ID Status Reason Start Date Expiration Date Visits Requested Visits Authorized [id number] Authorized PCP Requested Referral Auto-Generate d Referral 12/12/2022 12/12/2023 99 99 Specialty Diagnoses / Procedures Referred By Michel t Referred To Contact [facility] Diagnoses Parkinsonism, unspecified Parkinsonism type (HCC) Procedures CONSULT TO PHYSICAL THERAPY PHYSICAL THERAPY EVALUATION HIGH COMPLEX 45 MINS Leni Ruiz APRN.FRANCHISE MANAGER [address] [place] [address] [facility] [place] [address] [place] [address] Referral ID Status Reason Start Date Expiration Date Visits Requested Visits Authorized [id number] Authorized PCP Requested Referral Auto-Generate d Referral 12/12/2022 12/12/2023 99 99 Advance Directives No Advanced Directives Records FoundDocuments on File Type Date Recorded Patient Content Producer Expl anation ACP-Advance Directive ACP-Power of Health Care Marketing Specialist Latest Code Status on File Code Status Date Activated Date Inactivated Comments Full Code 04/17/2018 6:13 AM 04/17/2018 1:26 PM Documents on File Type Date Recorded Patient Content Producer Expl anation ACP-Advance Directive ACP-Power of Health Care Marketing Specialist Latest Code Status on File Code Status Date Activated Date Inactivated Comments Full Code 05/19/2021 6:48 AM Full Code 04/17/2018 6:13 AM 04/17/2018 1:26 PM Documents on File Type Date Recorded Patient Content Producer Expl anation Advance Directives and Living Will Documents on File Type Date Recorded Patient Content Producer Expl anation Advance Directives and Living Will Documents on File Type Date Recorded Patient Content Producer Expl anation Advance Directives and Livin g Will 11/01/2021 10:44 AM Advance Directive Response Recorded Date/ Time Living Will Yes January 28, 2022 2:22am Power of Health Care Marketing Specialist Yes January 28 2:22am Advance Directive Response Recorded Date/ Time Name of Medical Power of Health Care Marketing Specialist BRENNEN GRIFFITH ( ) January 28, 2022 2:22am Living Will Yes January 28, 2022 2:22am Power of Health Care Marketing Specialist Yes January 28 2:22am Advance Directive Response Recorded Date/ Time Living Will Yes January 28, 2022 1:22am Power of Health Care Marketing Specialist Yes January 28 1:22am Advance Directive Response Recorded Date/ Time Name of Medical Power of Health Care Marketing Specialist February 11, 2023 12:56pm Living Will Yes February 11, 2023 12:56pm Power of Health Care Marketing Specialist Yes February 11 12:56pm Advance Directive Response Recorded Date/ Time Living Will Yes February 11, 2023 12:56pm Power of Health Care Marketing Specialist Yes February 11 12:56pm Advance Directive Response Recorded Date/ Time Living Will Yes February 11, 2023 11:56am Power of Health Care Marketing Specialist Yes February 11 11:56am Advance Directive Response Recorded Date/ Time Living Will Yes February 11, 2023 12:56pm Power of Health Care Marketing Specialist Yes February 11 12:56pm Living Will Yes October 12 12:40pm Power of Health Care Marketing Specialist Yes October 12, 2024 12:40pm Name of Medical Power of Health Care Marketing Specialist brennen griffith October 12, 2024 12:40pm Living Will Yes December 05 6:16pm Power of Health Care Marketing Specialist Yes December 05, 2024 6:16pm Name of Medical Power of Health Care Marketing Specialist BRENNEN GRIFFITH December 05, 2024 6:16pm Advance Directive Response Recorded Date/ Time Living Will Yes February 11, 2023 12:56pm Do you have a Healthcare Power of Health Care Marketing Specialist? Yes February 11, 2023 12:56pm Living Will Yes December 05 6:16pm Do you have a Healthcare Power of Health Care Marketing Specialist? Yes December 05, 2024 6:16pm Name of Medical Power of Health Care Marketing Specialist BRENNEN GRIFFITH December 05, 2024 6:16pm Living Will No February 14, 2025 9:21pm Do you have a Healthcare Power of Health Care Marketing Specialist? No February 14, 2025 9:21pm Advance Directive Response Recorded Date/ Time Living Will Yes February 11, 2023 12:56pm Do you have a Healthcare Power of Health Care Marketing Specialist? Yes February 11, 2023 12:56pm Living Will No February 14, 2025 9:21pm Do you have a Healthcare Power of Health Care Marketing Specialist? No February 14, 2025 9:21pm Advance Directive Response Recorded Date/ Time Living Will Yes February 11, 2023 12:56pm Do you have a Healthcare Power of Health Care Marketing Specialist? Yes February 11, 2023 12:56pm Living Will No February 14, 2025 9:21pm Do you have a Healthcare Power of Health Care Marketing Specialist? No February 14, 2025 9:21pm Do you have a Healthcare Power of Health Care Marketing Specialist? Yes April 09, 2025 11:28am Healthcare Agents on File Name Relationship Healthcare Agent Jimnj p Communication Brennen Griffith Spouse First Alternate Health Care Agent Advance Directive Response Recorded Date/ Time Living Will No February 14, 2025 9:21pm Do you have a Healthcare Power of Health Care Marketing Specialist? No February 14, 2025 9:21pm Do you have a Healthcare Power of Health Care Marketing Specialist? Yes April 09, 2025 11:28am Do you have a Healthcare Power of Health Care Marketing Specialist? No May 11, 2025 5:51pm Summary Purpose [...] or prosecute any alcohol or drug abuse patient.[facility]In the event this information is protected by the Federal Confidentiality of Alcohol and Drug Abuse Patient Records regulations: The Federal rules restrict any use of the information to criminally investigate or prosecute any alcohol or drug abuse patient.[facility] DaytonIn the event this information is protected by the Federal Confidentiality of Alcohol and Drug Abuse Patient Records regulations: The Federal rules restrict any use of the information to criminally investigate or prosecute any alcohol or drug abuse patient.[facility] DaytonIn the event this information is protected by the Federal Confidentiality of Alcohol and Drug Abuse Patient Records regulations: The Federal rules restrict any use of the information to criminally investigate or prosecute any alcohol or drug abuse patient.[facility] DaytonIn the event this information is protected by the Federal Confidentiality of Alcohol and Drug Abuse Patient Records regulations: The Federal rules restrict any use of the information to criminally investigate or prosecute any alcohol or drug abuse patient.[facility] DaytonIn the event this information is protected by the Federal Confidentiality of Alcohol and Drug Abuse Patient Records regulations: The Federal rules restrict any use of the information to criminally investigate or prosecute any alcohol or drug abuse patient.[facility] DaytonIn the event this information is protected by the Federal Confidentiality of Alcohol and Drug Abuse Patient Records regulations: The Federal rules restrict any use of the information to criminally investigate or prosecute any alcohol or drug abuse patient.[facility] DaytonIn the event this information is protected by the Federal Confidentiality of Alcohol and Drug Abuse Patient Records regulations: The Federal rules restrict any use of the information to criminally investigate or prosecute any alcohol or drug abuse patient.[facility] DaytonIn the event this information is protected by the Federal Confidentiality of Alcohol and Drug Abuse Patient Records regulations: The Federal rules restrict any use of the information to criminally investigate or prosecute any alcohol or drug abuse patient.[facility] DaytonIn the event this information is protected by the Federal Confidentiality of Alcohol and Drug Abuse Patient Records regulations: The Federal rules restrict any use of the information to criminally investigate or prosecute any alcohol or drug abuse patient.[facility] DaytonIn the event this information is protected by the Federal Confidentiality of Alcohol and Drug Abuse Patient Records regulations: The Federal rules restrict any use of the information to criminally investigate or prosecute any alcohol or drug abuse patient.[facility] DaytonIn the event this information is protected by the Federal Confidentiality of Alcohol and Drug Abuse Patient Records regulations: The Federal rules restrict any use of the information to criminally investigate or prosecute any alcohol or drug abuse patient.[facility] DaytonIn the event this information is protected by the Federal Confidentiality of Alcohol and Drug Abuse Patient Records regulations: The Federal rules restrict any use of the information to criminally investigate or prosecute any alcohol or drug abuse patient.[facility] DaytonIn the event this information is protected by the Federal Confidentiality of Alcohol and Drug Abuse Patient Records regulations: The Federal rules restrict any use of the information to criminally investigate or prosecute any alcohol or drug abuse patient.[facility] DaytonIn the event this information is protected by the Federal Confidentiality of Alcohol and Drug Abuse Patient Records regulations: The Federal rules restrict any use of the information to criminally investigate or prosecute any alcohol or drug abuse patient.[facility] DaytonIn the event this information is protected by the Federal Confidentiality of Alcohol and Drug Abuse Patient Records regulations: The Federal rules restrict any use of the information to criminally investigate or prosecute any alcohol or drug abuse patient.[facility] DaytonIn the event this information is protected by the Federal Confidentiality of Alcohol and Drug Abuse Patient Records regulations: The Federal rules restrict any use of the information to criminally investigate or prosecute any alcohol or drug abuse patient.[facility] DaytonIn the event this information is protected by the Federal Confidentiality of Alcohol and Drug Abuse Patient Records regulations: The Federal rules restrict any use of the information to criminally investigate or prosecute any alcohol or drug abuse patient.[facility] DaytonIn the event this information is protected by the Federal Confidentiality of Alcohol and Drug Abuse Patient Records regulations: The Federal rules restrict any use of the information to criminally investigate or prosecute any alcohol or drug abuse patient.[facility] DaytonIn the event this information is protected by the Federal Confidentiality of Alcohol and Drug Abuse Patient Records regulations: The Federal rules restrict any use of the information to criminally investigate or prosecute any alcohol or drug abuse patient.[facility] Reason for Visit (unrecogniz ed section and content) Reason Comments Parkinsonism, unspecified Parkinsonism t ype (HCC) Specialty Diagnoses / Procedures Referred By Contac t Referred To Contact Diagnoses Parkinsonism, unspecified Parkinsonism type (HCC) Procedures PROVIDER ORDERED FOLLOW UP OFFICE/OUTPATIENT NEW HIGH MDM 60-74 MINUTES Jaylyn Nieves MD [address] [place] [id number] Referral ID Status Reason Start Date Expiration Date V isits Requested Visits Authorized [id number] Closed PCP Requested Referral 11/03/2022 08/04/2023 1 1 Status Reason Specialty Diagnoses / Procedures Re ferred By Contact Referred To Contact Open Cardiology Diagnoses Pre-op testing Abnormal EKG Shortness of breath Procedures ECHO Pharmacological Stress Test Raeann Holland, SCALE MODEL MAKER - FRANCHISE MANAGER 1 [facility], [place], [facility] [address] [place] [address] Reason Comments Consult Ref by: PATRICIA MCGOWAN 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,essential (HIFU interest - saw us on the website), Tremors Dx; ET approx 1 year Specialty Diagnoses / Procedures Referred By Michel higginbotham Referred To Contact Neurology Diagnoses Tremor, essential Patricia Mcgowan MD [address] [facility] [address] [place] [address] Barb Morton MD [address] [facility] [address] [place] [id number] Referral ID Status Reason Start Date Expiration Date Visits Re quested Visits Authorized [id number] Closed 09/27/2021 09/27/2022 1 1 Reason Comments Physical Therapy Neuro Specialty Diagnoses / Procedures Referred By Michel higginbotham Referred To Contact Rehabilitation Diagnoses Tremor Barb Morton MD [address] [facility] [address] [place] [id number] [facility] [address] [place] [address] Referral ID Status Reason Start Date Expiration Date V isits Requested Visits Authorized [id number] Authorized 10/05/2021 10/05/2022 1 199 Reason Onset Date Comments Medication Refill 11/05/2021 Reason Onset Date Comments Medication Refill 11/09/2021 Reason Comments Follow Up Parkinson's Reason Comments Upcoming Appointment Pre-rooming phone c all Reason Comments Speech Evaluation Specialty Diagnoses / Procedures Referred By Michel higginbotham Referred To Contact Speech-Language Pathologist / SPEECH THERAPY Diagnoses PD Clinic Procedures [facility] Jaylyn Nieves MD [address] [address] Amaya Deleon, CCC-DOCTORATE OF CHIROPRACTIC [address] [place] [address] Referral ID Status Reason Start Date Expiration Date V isits Requested Visits Authorized [id number] Authorized 03/29/2022 06/27/2022 99 99 Reason Comments PT Eval Patient Education Specialty Diagnoses / Procedures Referred By Contac t Referred To Contact Physical Therapy / PHYSICAL THERAPY Diagnoses PD Clinic Procedures [facility] Jaylyn Nieves MD [address] [address] [place] Medel, PT, DPT [address] [place] [phone] Referral ID Status Reason Start Date Expiration Date V isits Requested Visits Authorized [id number] Authorized 03/29/2022 06/27/2022 99 99 Specialty Diagnoses / Procedures Referred By Contac t Referred To Contact Neurology / NEUROLOGICAL FAITH Diagnoses Parkinsonism, unspecified Parkinsonism type (HCC) Procedures CONSULT TO [facility] OFFICE/OUTPATIENT [facility] MDM 60-74 MINUTES Jaylyn Nieves MD [address] [address] [facility] [address] [place] [address] Referral ID Status Reason Start Date Expiration Date V isits Requested Visits Authorized [id number] Closed PCP Requested Referral 03/17/2022 03/17/2023 1 1 Reason Onset Date Comments Refill Request 05/18/2022 Reason Comments Appointment Earlier appointment request d/t worsening symptoms Reason Comments Follow Up Referral ID Status Reason Start Date Expiration Date V isits Requested Visits Authorized [id number] Closed PCP Requested Referral 03/17/2022 06/15/2022 1 1 Reason Comments Physical Therapy Specialty Diagnoses / Procedures Referred By Contac t Referred To Contact [facility] Diagnoses Parkinsonism, unspecified Parkinsonism type (HCC) Procedures CONSULT TO PHYSICAL THERAPY PHYSICAL THERAPY EVALUATION HIGH COMPLEX 45 MINS Jaylyn Nieves MD [address] [facility] [address] [place] [address] [facility] [place] [address] [place] [address] Referral ID Status Reason Start Date Expiration Date Visits Requested Visits Authorized [id number] Authorized PCP Requested Referral Auto-Generate d Referral 08/04/2022 08/04/2023 99 99 Reason Comments New Patient Specialty Diagnoses / Procedures Referred By Contac t Referred To Contact Diagnoses Parkinsonism, unspecified Parkinsonism type (HCC) Depression, unspecified depression type Procedures CONSULT TO PSYCHIATRY OFFICE/OUTPATIENT NEW [facility] MDM 60-74 MINUTES Jaylyn Nieves MD [address] [address] Referral ID Status Reason Start Date Expiration Date Visits Requested Visits Authorized [id number] Pending Review PCP Requested Referral 08/04/2022 08/04/2023 [...] content) DATE CREATED AUTHOR 05/13/[address] [facility] DATE CREATED AUTHOR AUTHOR'S ORGANIZ ATION 05/20/[address] [facility] DATE CREATED AUTHOR AUTHOR'S ORGANIZ ATION 12/22/2021 [facility] DATE CREATED AUTHOR AUTHOR'S ORGANIZ ATION 02/18/2023 [facility] DATE CREATED AUTHOR AUTHOR'S ORGANIZ ATION 02/19/2023 [facility] DATE CREATED AUTHOR AUTHOR'S ORGANIZ ATION 04/05/2025 [facility] DATE CREATED AUTHOR AUTHOR'S ORGANIZ ATION 04/18/2025 [facility] DATE CREATED AUTHOR AUTHOR'S ORGANIZ ATION 06/04/2025 [facility] Scheduled Active and Recently Administ ered [...] % 100 mL IVPB 3,000 mg, Intravenous, SWEAT BOX ATTENDANT TO O.R., 1 dose, On Mon05/19/21 at [...] (day of surgery) 0710 ([facility] - [facility] ider: Asya Torre RN) PRN Medication [...] Cielo Valverde RN) lidocaine-EPINEPHrine (Xylocaine W/EPI) 1 %-1:645327 injection 10 mL (COMPLETED) 10 mL, Infiltration, [...] Infection 2228 (Given - Provid er: Cielo Valvered RN) Care Teams (unrecognized sec tion and content) Patient Office Rep Relationship Specialty Start Date End Date Patricia Mcgowan MD [address] [facility] [address] [place] [address] PCP - General Family Medicine 10/28/21 Patient Office Rep Relationship Specialty Start Date End Date Patricia Mcgowan MD [address] [facility] [address] [place] [address] PCP - General Family Medicine 10/28/21 Patient Office Rep Relationship Specialty Start Date End Date Patricia Mcgowan MD [address] [facility] [address] [place] [address] PCP - General Family Medicine 10/28/21 Patient Office Rep Relationship Specialty Start Date End Date Patricia Mcgowan MD [address] [facility] [address] [place] [address] PCP - General Family Medicine 10/28/21 Patient Office Rep Relationship Specialty Start Date End Date Patricia Mcgowan MD [address] [facility] [address] [place] [address] PCP - General Family Medicine 10/28/21 Patient Office Rep Relationship Specialty Start Date End Date Patricia Mcgowan MD [address] [facility] [address] [place] [address] PCP - General Family Medicine 10/28/21 Patient Office Rep Relationship Specialty Start Date End Date Patricia Mcgowan MD [address] [facility] [address] [place] [address] PCP - General Family Medicine 10/28/21 Patient Office Rep Relationship Specialty Start Date End Date Ron Cooley [address] [place] [address] PCP - General Family Practice 03/17/22 Patient Office Rep Relationship Specialty Start Date End Date Ron Cooley [address] [place] [address] PCP - General Family Practice 03/17/22 Patient Office Rep Relationship Specialty Start Date End Date Ron Cooley [address] [place] [address] PCP - General Family Practice 03/17/22 Patient Office Rep Relationship Specialty Start Date End Date Ron Cooley [address] [place] [address] PCP - General Family Practice 03/17/22 Patient Office Rep Relationship Specialty Start Date End Date Ron Cooley [address] [place] [address] PCP - General Family Practice 03/17/22 Patient Office Rep Relationship Specialty Start Date End Date Ron Cooley [address] [place] [address] PCP - General Family Practice 03/17/22 Patient Office Rep Relationship Specialty Start Date End Date Ron Cooley [address] [place] [address] PCP - General Family Practice 03/17/22 Patient Office Rep Relationship Specialty Start Date End Date Ron Cooley [address] [place] [address] PCP - General Family Practice 03/17/22 Patient Office Rep Relationship Specialty Start Date End Date Ron Cooley [address] [place] [address] PCP - General Family Practice 03/17/22 Patient Office Rep Relationship Specialty Start Date End Date Ron Cooley [address] [place] [address] PCP - General Family Medicine 03/17/22 Patient Office Rep Relationship Specialty Start Date End Date Ron Cooley [address] [place] [address] PCP - General Family Medicine 03/17/22 Patient Office Rep Relationship Specialty Start Date End Date Ron Cooley [address] [place] [address] PCP - General Family Medicine 03/17/22 Erika May, SCALE MODEL MAKER.FRANCHISE MANAGER [address] [place] [address] Specialty Appliance Painter And Refinisher Neurology 09/07/22 Patient Office Rep Relationship Specialty Start Date End Date Ron Cooley [address] [place] [address] PCP - General Family Medicine 03/17/22 Erika May, SCALE MODEL MAKER.FRANCHISE MANAGER [address] [place] [address] Specialty Appliance Painter And Refinisher Neurology 09/07/22 Patient Office Rep Relationship Specialty Start Date End Date Ron Cooley [address] [place] [address] PCP - General Family Medicine 03/17/22 Erika May, SCALE MODEL MAKER.FRANCHISE MANAGER [address] [place] [address] Specialty Appliance Painter And Refinisher Neurology 09/07/22 Patient Office Rep Relationship Specialty Start Date End Date Ron Cooley [address] [facility] [address] [place] [address] PCP - General Family Medicine 03/17/22 Erika May, SCALE MODEL MAKER.FRANCHISE MANAGER [address] [place] [address] Specialty Appliance Painter And Refinisher Neurology 09/07/22 Tatiana Rodas, SCALE MODEL MAKER.FRANCHISE MANAGER [address] [place] [address] Specialty Appliance Painter And Refinisher Neurology 12/05/22 Patient Office Rep Relationship Specialty Start Date End Date Ron Cooley [address] [facility] [address] [place] [address] PCP - General Family Medicine 03/17/22 Erika May, SCALE MODEL MAKER.FRANCHISE MANAGER [address] [place] [address] Specialty Appliance Painter And Refinisher Neurology 09/07/22 Tatiana Rodas, SCALE MODEL MAKER.FRANCHISE MANAGER [address] [place] [address] Specialty Appliance Painter And Refinisher Neurology 12/05/22 Patient Office Rep Relationship Specialty Start Date End Date Ron Cooley [address] [facility] [address] [place] [address] PCP - General Family Medicine 03/17/22 Erika May, SCALE MODEL MAKER.FRANCHISE MANAGER [address] [place] [address] Specialty Appliance Painter And Refinisher Neurology 09/07/22 Tatiana Rodas, SCALE MODEL MAKER.FRANCHISE MANAGER [address] [place] [address] Specialty Appliance Painter And Refinisher Neurology 12/05/22 Team Status: Active Member Role [...] Dr. Natasha [place] MD Attending Provider Active Patient Office Rep Relationship Specialty Start Date End Date RejiRon marcos [address] [facility] [address] [place], [place] [address] PCP - General Family Medicine 03/17/22 Erika May, SCALE MODEL MAKER.FRANCHISE MANAGER [address] [place] [address] Specialty Appliance Painter And Refinisher Neurology 09/07/22 Tatiana Rodas, SCALE MODEL MAKER.FRANCHISE MANAGER [address] [place] [address] Specialty Appliance Painter And Refinisher Neurology 12/05/22 Team Status: Inactive Member Role Status Dates Dr. Ron Cooley MD Primary Care Provider Active Dr. Osman Farooq MD Emergency Provider Active Patient Office Rep Relationship Specialty Start Date End Date Ron Cooley [address] [facility] [address] [place] [address] PCP - General Family Medicine 03/17/22 Erika May, SCALE MODEL MAKER.FRANCHISE MANAGER [address] [place] [address] Specialty Appliance Painter And Refinisher Neurology 09/07/22 Tatiana Rodas APRN.FRANCHISE MANAGER [address] [place] [address] Specialty Appliance Painter And Refinisher Neurology 12/05/22 Team Status: Inactive Member Role [...] Provider, Referr ing Provider Active Christel Bae ADVERTISING ACCOUNT MANAGER ADVERTISING ACCOUNT MANAGERLeroy Attending Provider Active Team Status: Inactive Member [...] April 09, 2025 End: April 09, 2025 Patient Office Rep Relationship Specialty Start Date End Date Ron Cooley MD [address] [facility] [address] [place] [address] PCP - General Family Medicine 04/13/25 Team [...] Status: Active Member Role/Relationship Status Dates Dr. oRn Cooley MD Primary Care Provider Active Team [...] 06, 2025 End: February 06, 2025 Dr. Rno Cooley MD Referring Provider Active Start: February [...] 2025 End: May 14, 2025 Dr. Vick Satno MD Attending Provider Active Start: May 14, [...] 09, 2025 End: April 09, 2025 Surya Duomnt MD Emergency Provider Active Star t: April [...] BE BASED ON THE PRIMARY CLINICAL RECORDS. [employer] [facility]. provides no warranty or guarantee of the accuracy or completeness of information in this document.
[2025-06-08 22:32] LABS: Barbiturate Urine NEGATIVE (< 200 ng/mL); Benzodiazepine Urine NEGATIVE (< 200 ng/mL); PCP Urine NEGATIVE (< 25 ng/mL); THC Urine NEGATIVE (< 50 ng/mL)
[2025-06-08 22:32] LABS: Alcohol, Blood (Medical)-Serum < 10.1 mg/dL (<=10.0)
[2025-06-08 22:38] LABS: Magnesium 1.6 mg/dL (1.5-2.2)
[2025-06-08 22:41] LABS: Troponin T High Sens 2 HR 14 ng/L (<=22)
[2025-06-08 23:24] VITALS: BMI 35.2
[2025-06-09] VITALS (7 sets, daily range): BP systolic 126–146; BP diastolic 62–84; PULSE 61–77; RESP 16–20; TEMP 36.3–37; O2SAT 94–100; BMI 35.3
[2025-06-09 00:06] LABS: Troponin T High Sens 4 HR 15 ng/L (<=22); Vitamin B12 230 pg/mL (180-914)
[2025-06-09] MEDS: Heparin Injection (Vial) 5,000 UNIT/ML VIAL 5000 UNIT SC ×2 (00:11→08:51)
[2025-06-09] MEDS: Lactobacillis Acidophilus 1 CAP PO ×3 (00:14→14:21)
[2025-06-09 06:16] LABS: Hematocrit 39.9 % (40-54); Hemoglobin 13.3 g/dL (13.0-16.5); Immature Granulocytes Count 0.030 X10^3/uL (0.0-0.0); Mean Corp Hgb Conc 33.3 g/dL (32-36); Mean Corpuscular Volume 91.3 fL (80-94); Mean Platelet Vol. 10.8 fl (6.2-12.0); NRBC Flagged by Analyzer 0 % (0-5); Platelet Count 243 K/mm3 (150-450); RBC Distribution Width CV 12.9 % (11.6-14.6); RBC Distribution Width SD 42.3 fl (35.1-43.9); Red Blood Count 4.37 M/mm3 (4.6-6.2); White Blood Count 9.4 K/mm3 (4.4-11.0)
[2025-06-09] MEDS: Budesonide Respules 0.5 MG/2 ML AMPUL.NEB. INHALATION (06:56)
[2025-06-09 07:10] LABS: FOLATES,SERUM (FOLIC ACID) 11.40 ng/mL (4.60-34.80)
[2025-06-09 08:14] LABS: AST(SGOT) 15 U/L (<=37); Alanine Aminotransfer ALT/SGPT < 5 U/L (<=46); Albumin, Serum 3.7 g/dL (3.4-4.8); Alkaline Phosphatase 76 U/L (40-129); Anion Gap 10 (5-15); BUN 17 mg/dL (4-19); BUN/Creat Ratio 21.8 RATIO (10-20); Calcium,Total 8.7 mg/dL (7.6-11.0); Carbon Dioxide 23.9 mmol/L (21.0-32.0); Chloride 108 mmol/L (98-108); Cholesterol 113 mg/dL (<=200); Estimated Creatinine Clearance 92.13 ml/min (50-250); Globulin 2.3 g/dL (2.2-4.2); Glucose 67 mg/dL (70-99); Low Density Lipoprotein Calc. 47 mg/dL; Potassium 3.8 mmol/L (3.3-5.1); Triglycerides 76 mg/dL; Very Low Density Lipoprotein 15 mg/dL (5-40); cholesterol:hdl ratio screen 2.24
[2025-06-09] MEDS: Cholecalciferol (VIT D3) 25 MCG TABLET (1,000 UNITS) 50 MCG PO (08:49)
[2025-06-09] MEDS: Aspirin E.C. 81 MG Tablet PO (08:51)
--- NOTE | 2025-06-09 10:21 | CASEMGMT ---
Social Work Pt is here from [facility]. SW called /POA to inquire if the plan will be for pt to return at discharge, message left. PT/OT also pending. [facility] will continue to follow. ANTONINO Briseno
--- NOTE | 2025-06-09 10:50 | CASEMGMT ---
Social Work SW spoke w/pt, he is agreeable that he would like to return to [facility] at d/c. Pt's then called back and also confirmed that the plan will be for pt to return to [facility]. We spoke about getting pt back to [facility]. She asked if [facility] can take pt back with their transport, and if not she will pick him up and transport him back. She states that they are waiting for the resource specialist insurance to kick in so she does not want to spend money on transport. She then went on to tell SW that pt is very mean to her, and this has been since the [facility]'s diagnosis. She states pt is nice to everyone else but her. SW offered support to . elvia Darnell/c planning coordinator will reach out to [facility], will also check on if pt is on O2 there and if he has home health, as pt had indicated he is doing therapy at [facility]. SW will continue to follow. ANTONINO Briseno
--- NOTE | 2025-06-09 11:54 | CASEMGMT ---
Addendum entered by Carie Escamilla 06/09/25 15:39: Pt does not have O2 and uses [facility] for PT/OT. RN CM updated. Carie Escamilla DC Planning Asst. Original Note: Discharge Planning Updates faxed to marlene Candelario; Miesha Recio. Asked if pt is receiving HH and if he uses O2. Awaiting response. Carie Escamilla DC Planning Asst.
--- NOTE | 2025-06-09 15:26 | CASEMGMT ---
Addendum entered by Carie Escamilla 06/09/25 15:28: [facility] confirmed that pt is active with their agency. Carie Escamilla DC Planning Asst. Original Note: Discharge Planning HH EMMA sent to [facility]. Carie Escamilla DC Planning Asst.
--- NOTE | 2025-06-09 15:57 | NURSING ---
Patient exit seeking, hard to redirect, patient dressing himself. Reminded patient that he is going to be discharged and needs to stay in his room for transport to [facility]. Patient understanding at this time/.
--- NOTE | 2025-06-09 16:11 | DS.PCM_ITS ---
Providers Date of Admission: 06/08/25 Date of Discharge: 06/09/25 Primary Care Physician: Dr. Ja Cooley MD Reason For Visit: SYNCOPE AND COLLAPSE, LEFT POSTERIOR SCALP Diagnosis Discharge Diagnosis (1) Syncope and collapse: Status: Acute Code(s): R55 - Syncope and collapse (2) History of Parkinson's disease: Status: Acute Code(s): Z86.69 - Personal history of other diseases of the nervous system and sense organs (3) Acute sinusitis: Status: Acute Code(s): J01.90 - Acute sinusitis, unspecified Qualifiers: Recurrence: not specified as recurrent Sinusitis location: unspecified location Qualified Code(s): J01.90 - Acute sinusitis, unspecified (4) Dehydration: Status: Acute Code(s): E86.0 - Dehydration (5) Obesity (BMI 30-39.9): Status: Acute Code(s): E66.9 - Obesity, unspecified (6) History of dementia: Status: Acute Code(s): Z86.59 - Personal history of other mental and behavioral disorders Medications at Discharge Home Medications pravastatin 80 mg tablet 80 mg PO QDAY cholesterol 04/06/18 fluticasone fur. 200 mcg-umeclid 62.5 mcg-vilant 25 mcg inhalat.powder (Trelegy Ellipta) 1 inh inhalation DAILY SOB 04/12/22 pantoprazole 40 mg tablet,delayed release 40 mg PO DAILY acid reflux 04/12/22 finasteride 5 mg tablet 5 mg PO DAILY urine flow 04/11/23 alfuzosin 10 mg tablet,extended release 24 hr 10 mg PO DAILY urinary retention 04/12/23 cholecalciferol (vitamin D3) 25 mcg (1,000 unit) capsule 4,000 unit PO DAILY supplement 04/12/23 insulin aspart U-100 100 unit/mL subcutaneous solution (Novolog U-100 Insulin aspart) See Rx Instructions .Route .COMPLEX diabetes 04/12/23 metformin 750 mg tablet,extended release 24 hr 750 mg PO QHS diabetes 04/12/23 insulin glargine U-300 conc 300 unit/mL (3 mL) subcutaneous pen (Toujeo Max U- 300 SoloStar) 54 unit subcut DAILY diabetes 06/27/24 ropinirole 2 mg tablet 2 mg PO TID parkinson #270 tabs 03/20/25 doxepin 25 mg capsule 25 mg PO QHS nerve pain #90 caps 03/31/25 albuterol sulfate 90 mcg/actuation aerosol inhaler 2 inh inhalation Q6H PRN shortness of breath or wheezing 06/08/25 aspirin 81 mg tablet,delayed release (Adult Aspirin Regimen) 81 mg PO QHS heart health 06/08/25 budesonide 1 mg/2 mL suspension for nebulization (Pulmicort) 1 mg inhalation Q6H SOB 06/08/25 carbidopa 25 mg-levodopa 100 mg tablet 2 tab PO 4X/DAY parkinsons 06/08/25 propranolol 60 mg capsule,24 hr,extended release 60 mg PO QHS blood pressure 06/08/25 amoxicillin 875 mg-potassium clavulanate 125 mg tablet 1 tab PO BID #10 tabs 06/09/25 Hospital Course Operations None Procedures None Summary of Care Provided Minutes Spent on Discharge: 45 Hospital Course: Patient is an 79 y/o with a PMH as outlined who was admitted via the ED on 06/08/2025 with a complaint of syncope whilst in his SNF. He felt lightheaded and next thing he remembered he woke up on the floor. He had associated headaeche and imaging done showed apoterior scalp hematoma with persistent lethargy. He had no other complaints. CT brain showed no the left small posterior scalp hematoma and ethmoid and maxillayr sinus disease consistent with acute sinusitis. CT cervical spine showed no acute osseus abnormality. He was admitted and diagnosed with syncope and collape in the setting of chronic Parkinson's disease, as well as dehydration and and acute sinusitis. He was hydrated with IVF. PT./OT worked with him and he did well. He was therefore discharged back to his assisted living facility. He was started on IV ceftriaxone during the admission for the sinusitis. He was discharged on PO augmentin for a 5 day coiurse. He is to follow up with his PCP within 1-2 weeks. Patient seen and examined prior to discahrge. He had no active complaints and felt ready to be discharged. Review of systems is otherwise negative. Labs and vitals reviewed. Home meds reviewed and reconciled. Physical Exam Const alert, oriented x3 and no apparent distress General Appearance: cooperative and comfortable Orientation / Consciousness: awake and oriented to person HEENT normocephalic, hearing grossly normal bilaterally and moist oral mucous membranes HEENT Narrative: small posterior scalp hematoma Mouth: oral and palatal mucosa normal Eyes PERRL, EOMs intact bilaterally and conjunctivae normal Neck no lymphadenopathy and supple Resp normal respiratory effort, no use of accessory muscles and clear to auscultation bilaterally Cardio regular rate, regular rhythm, S1 normal heart sound, S2 normal heart sound and no murmurs GI normal to inspection, nondistended, normoactive bowel sounds, soft to palpation, non-tender and non-distended Extremity normal to inspection, full ROM and no clubbing, cyanosis or edema Skin no rashes or lesions noted Neuro oriented x3, CN's II-XII intact bilaterally, moves all extremities, no focal motor deficits and no sensory deficits noted Sensorium / Orientation: awake and alert Motor Exam: strength 5/5 throughout Psych affect normal Weight / BMI Weight Weight: 246 lb 0.574 oz Body Mass Index (BMI) 35.3 ABG / Lab / Microbiology Data 06/09/25 05:28 06/09/25 05:28 Laboratory: Laboratory Results - last 24 hr 06/08/25 18:17: WBC 9.2, RBC 4.67, Hgb 14.4, Hct 41.6, MCV 89.1, MCH 30.8, MCHC 34.6, RDW Std Deviation 42.2, RDW Coeff of Nori 13.2, Plt Count 261, MPV 10.4, Immature Gran % (Auto) 0.800, Neut % (Auto) 51.9, Lymph % (Auto) 36.0, [place] % (Auto) 8.5, Eos % (Auto) 1.9, Baso % (Auto) 0.9, Absolute Neuts (auto) 4.8, Absolute Lymphs (auto) 3.30, Nucleated RBC % 0, Sodium Cancelled, Potassium Cancelled, Chloride Cancelled, Carbon Dioxide Cancelled, Anion Gap Cancelled, BUN Cancelled, Creatinine Cancelled, Estim Creat Clear Calc Cancelled, Est GFR (MDRD) Non-Af Cancelled, BUN/Creatinine Ratio Cancelled, Glucose Cancelled, Calcium Cancelled, Troponin T High Sens Cancelled 06/08/25 19:25: Sodium 139, Potassium 4.0, Chloride 103, Carbon Dioxide 24.5, Anion Gap 12, BUN 22 H, Creatinine 0.85, Estim Creat Clear Calc 87.49, Est GFR (MDRD) Non-Af 88, BUN/Creatinine Ratio 26.0 H, Glucose 224 H, Calcium 9.0, Troponin T High Sens 17 06/08/25 20:41: Urine Color Yellow, Urine Clarity Clear, Urine pH 6.0, Ur Specific [place] 1.020, Urine Protein 15 H, Urine Glucose (UA) 50 H, Urine Ketones 5 H, Urine Occult Blood 10 H, Urine Nitrite Negative, Urine Bilirubin Negative, Urine Urobilinogen 1 H, Ur Leukocyte Esterase Negative, Urine RBC 0-5 SEEN, Urine WBC 0-5 SEEN, Ur Squamous Epith Cells 0-5 SEEN, Urine Bacteria RARE, Urine Mucus 2+, Urine Opiates Screen NEGATIVE, U Buprenorphine Qual NEGATIVE, Ur Oxycodone Screen NEGATIVE, Urine Methadone Screen NEGATIVE, Urine Fentanyl Screen NEGATIVE, Ur Barbiturates Screen NEGATIVE, Ur Phencyclidine Scrn NEGATIVE, Ur Amphetamines Screen NEGATIVE, U Benzodiazepines Scrn NEGATIVE, Urine Cocaine Screen NEGATIVE, U Cannabinoids Screen NEGATIVE 06/08/25 21:26: Magnesium 1.6, Troponin T Hi Sens 2 Hr 14, TSH 2.200, Ethyl Alcohol < 10.1 06/08/25 22:45: Troponin T Hi Sens 4Hr 15, Vitamin B12 230 06/09/25 05:28: WBC 9.4, RBC 4.37 L, Hgb 13.3, Hct 39.9 L, MCV 91.3, MCH 30.4, MCHC 33.3, RDW Std Deviation 42.3, RDW Coeff of Nori 12.9, Plt Count 243, MPV 10.8, Immature Gran % (Auto) 0.300, Neut % (Auto) 44.3 L, Lymph % (Auto) 40.9, M briana % (Auto) 11.5 H, Eos % (Auto) 2.1, Baso % (Auto) 0.9, Absolute Neuts (auto) 4.2, Absolute Lymphs (auto) 3.83, Nucleated RBC % 0, Sodium 142, Potassium 3.8, Chloride 108, Carbon Dioxide 23.9, Anion Gap 10, BUN 17, Creatinine 0.77, Estim Creat Clear Calc 92.13, Est GFR (MDRD) Non-Af 91, BUN/Creatinine Ratio 21.8 H, G lucose 67 L, Calcium 8.7, Phosphorus 3.8, Total Bilirubin 0.57, AST 15, ALT < 5, Alkaline Phosphatase 76, Total Protein 5.9, Albumin 3.7, Globulin 2.3, Albumin/Globulin Ratio 1.6, Triglycerides 76, Cholesterol 113, LDL Cholesterol, Calc 47, VLDL Cholesterol 15, HDL Cholesterol 50, Cholesterol/HDL Ratio 2.24, Serum Folate 11.40 06/09/25 06:31: POC Glucose 81 06/09/25 11:28: POC Glucose 149 H 06/09/25 16:11: POC Glucose 157 H Radiography Diagnostic Testing: Radiology Impression Brain CT 06/08/25 18:16 IMPRESSION: 1. No acute intracranial abnormality. Small left posterior scalp hematoma. 2. Ethmoid and maxillary sinus disease, correlate for clinical evidence of acute sinusitis. Reading Location: [id number] Cervical Spine CT 06/08/25 18:16 IMPRESSION: No acute osseous abnormality of the cervical spine. Multilevel degenerative changes. Reading Location: [facility] Chest X-Ray 06/08/25 18:43 IMPRESSION: Low lung volumes, without definite evidence of an acute cardiopulmonary abnormality. Reading Location: [facility] Carotid Duplex 06/08/25 21:49 Interpretation Summary Mild (<50%) stenosis right extracranial internal carotid. Mild (<50%) stenosis left extracranial internal carotid. Patent and antegrade vertebrals bilaterally. Ordering Physician: Geo Garza Referring Physician: Ja Cooley Performed By: Thuy Dong, RDCS, RVT D/C Instructions Discharge Activity: Return to Normal Activity Weight Bearing Status: Weight bearing as tolerated Call your doctor if you observe: Fever of 101 or Higher, Shortness of breath and Swelling in the ankles DC O2, CPAP, BIPAP Needs Home O2 Discharge instructions: No DC home with Oxygen: No Meaningful Use Info Meaningful Use Meaningful Use Diagnoses (Choose all that apply): None applicable Discharge Plan Admission Admit Date/Time: 06/08/25 21:40 Primary Reason for Your Visit: syncope Attending Provider: Daphnie Narayanan Primary Care Provider: Ja Cooley Consulting Providers: Geo Garza; Daphnie Narayanan Instructions Patient Instructions: Diagnosing Syncope Discharge Orders/Prescriptions Prescriptions: New amoxicillin-pot clavulanate 875-125 mg tablet 1 tab PO BID Qty: 10 0RF Continued pravastatin 80 mg tablet 80 mg PO QDAY metformin 750 mg tablet extended release 24 hr 750 mg PO QHS insulin aspart U-100 [Novolog U-100 Insulin aspart] 100 unit/mL solution See Rx Instructions .ROUTE .COMPLEX Patient Comments: Sliding scale Rx Instructions: Sliding scale Trelegy Ellipta 200-62.5-25 mcg blister with device 1 inh inhalation DAILY pantoprazole 40 mg tablet,delayed release (DR/EC) 40 mg PO DAILY cholecalciferol (vitamin D3) 25 mcg (1,000 unit) capsule 4,000 unit PO DAILY alfuzosin 10 mg tablet extended release 24 hr 10 mg PO DAILY Rx Instructions: administer after the same meal each day insulin glargine U-300 conc [Toujeo Max U-300 SoloStar] 300 unit/mL (3 mL) insulin pen 54 unit subcut DAILY finasteride 5 mg tablet 5 mg PO DAILY ropinirole 2 mg tablet 2 mg PO TID Qty: 270 1RF doxepin 25 mg capsule 25 mg PO QHS Qty: 90 1RF albuterol sulfate 90 mcg/actuation HFA aerosol inhaler 2 inh inhalation Q6H PRN (Reason: shortness of breath or wheezing) aspirin [Adult Aspirin Regimen] 81 mg tablet,delayed release (DR/EC) 81 mg PO QHS budesonide [Pulmicort] 1 mg/2 mL suspension for nebulization 1 mg inhalation Q6H Patient Comments: [NO ORIGINAL SIG] propranolol 60 mg capsule,extended release 24 hr 60 mg PO QHS carbidopa-levodopa 25-100 mg tablet 2 tab PO 4X/DAY Referrals / Follow Up: Ja Cooley MD [Primary Care Provider] - Within 1 Week Disposition Disposition (needs filled in before D/C Order can be placed): Assisted Living Charges/Coding Visit Charges Inpatient E&M: 83019 Disch Hosp >30min
--- NOTE | 2025-06-09 16:13 | NURSING ---
Report called to Josselyn Candelario, p/u at 5pm patient notified, notified.
--- NOTE | 2025-06-09 16:19 | CASEMGMT ---
Discharge Planning Discharge instructions sent to [facility]. [facility] will transport pt at 5p. Nursing, SW, pt, and is updated. Carie Escamilla DC Planning Asst.
== END 2025-06-09 17:02 | disposition home or self-care (01) ==
LOC: ED 21:03 → PCU 22:16
PROVIDERS: Admitting Provider Internal Medicine; Emergency Provider Emergency Medicine; PCP Family Medicine; Visit Provider Student in an Organized Health Care Education/Training Program
DX: E86.0 Dehydration (principal); G20.A1 Parkinson's disease without dyskinesia, without mention of fluctuations; F02.80 Dementia in other diseases classified elsewhere, unspecified severity, without behavioral disturbance, psychotic disturbance, mood disturbance, and anxiety; I48.0 Paroxysmal atrial fibrillation; E11.40 Type 2 diabetes mellitus with diabetic neuropathy, unspecified; Z87.891 Personal history of nicotine dependence; Z79.84 Long term (current) use of oral hypoglycemic drugs; R55 Syncope and collapse; I45.10 Unspecified right bundle-branch block; E78.5 Hyperlipidemia, unspecified; S00.03XA Contusion of scalp, initial encounter; Z79.82 Long term (current) use of aspirin; E66.812 Obesity, class 2; Z79.899 Other long term (current) drug therapy; W19.XXXA Unspecified fall, initial encounter; Z68.35 Body mass index [BMI] 35.0-35.9, adult; J01.90 Acute sinusitis, unspecified; I10 Essential (primary) hypertension; Z79.51 Long term (current) use of inhaled steroids; N40.0 Benign prostatic hyperplasia without lower urinary tract symptoms
CPT/HCPCS: 36415; 70450; 71045; 72125; 80048; 80053; 80061; 80307; 81001; 82077; 82607; 82746; 82962; 83735; 84100; 84443; 84484; 85025; 92610; 93005; 93306; 93880; 94640; 94668; 96361; 96372; 96374; 97162; 97166; 99221; 99285; Q9957; A4216; C8929; G0378

== ENCOUNTER 2025-06-12 10:38 | Emergency (ER) | payer MEDICARE, OTHER, SELFPAY ==
[2025-06-12] VITALS (14 sets, daily range): BP systolic 116–153; BP diastolic 63–70; PULSE 61–79; RESP 14–32; TEMP 36.5–36.8; O2SAT 94–98; BMI 36.3
--- NOTE | 2025-06-12 10:43 | CT_ITS ---
EXAM: NONCONTRAST CT SCAN OF THE HEAD CLINICAL HISTORY: Head trauma COMPARISON: June 08, 2025 TECHNIQUE: Serial axial series through the head were obtained without contrast. 2-D coronal and sagittal reformats were then obtained. FINDINGS: Brain: There is no acute large territorial infarct, intracranial hemorrhage, midline shift or mass effect. There are atherosclerotic vascular calcifications involving the bilateral carotid siphons. The sella and pineal gland regions appear unremarkable. There is no evidence of cerebellar tonsillar herniation. Ventricles: There is no acute hydrocephalus. Basilar cisterns are patent. Paranasal sinuses: Bilateral mastoid ethmoid air cell sinus disease is similar to the prior. Mastoid air cells: Well-aerated. Calvarium: The bony calvarium is intact. Subcutaneous edema is noted in the left frontal region with no underlying fracture. Orbits: The bilateral globes are symmetric, without retrobulbar compressive mass lesion or hemorrhage. CT/Brain/Head without Contrast IMPRESSION: There is no acute intracranial abnormality. Bilateral mastoid ethmoid air cell sinus disease is similar to the prior. Subcutaneous edema is noted in the left frontal region with no underlying fract ure. Reading Location: [facility]
--- NOTE | 2025-06-12 10:43 | CT_ITS ---
PROCEDURE: SPINE CERVICAL WITHOUT CONTRAS 06/12/2025 REASON FOR EXAM: HEAD TRAUMA , TECHNIQUE: SPINE CERVICAL WITHOUT CONTRAS Coronal and Sagittal reconstruction series were provided. One or more dose reduction techniques were used (e.g., Automated exposure control, adjustment of the mA and/or kV according to patient size, use of iterative reconstruction technique. RADIATION DOSE SUMMARY: Not reported COMPARISON: June 08, 2025 CT FINDINGS: There is loss of the lordosis. There is grade 1 spondylolisthesis at C7-T1, 0.3 cm. There is loss of disc height from C 3-7. There is moderate bilateral foraminal narrowing from C3-6 secondary to bony hypertrophy. There is no acute fracture. Soft tissues are unremarkable. CT/Spine Cervical without Contras IMPRESSION: There is loss of the lordosis. There is grade 1 spondylolisthesis at C7-T1, 0.3 cm. There is loss of disc height from C 3-7. There is moderate bilateral foraminal narrowing from C3-6 secondary to bony hyp ertrophy. There is no visible acute traumatic injury. Reading Location: [facility]
--- NOTE | 2025-06-12 10:44 | EKG12_ITS ---
Test Reason : Blood Pressure : */* mmHG Vent. Rate : 64 BPM Atrial Rate : 64 BPM P-R Int : 152 ms QRS Dur : 138 ms QT Int : 430 ms P-R-T Axes : 46 59 6 degrees QTcB Int : 443 ms Normal sinus rhythm Right bundle branch block Abnormal ECG Confirmed by JACOB GARZA, NING ([id number]), tape editor YEHUDA BENOIT ([id number]) on 06/16/2025 9:36:54 AM Referred By: MELVIN Confirmed By: NING JAMES MD
[2025-06-12 11:02] LABS: Hematocrit 41.3 % (40-54); Hemoglobin 13.6 g/dL (13.0-16.5); Immature Granulocytes Count 0.060 X10^3/uL (0.0-0.0); Mean Corp Hgb Conc 32.9 g/dL (32-36); Mean Corpuscular Volume 91.8 fL (80-94); Mean Platelet Vol. 10.4 fl (6.2-12.0); NRBC Flagged by Analyzer 0 % (0-5); Platelet Count 243 K/mm3 (150-450); RBC Distribution Width CV 12.9 % (11.6-14.6); RBC Distribution Width SD 42.7 fl (35.1-43.9); Red Blood Count 4.50 M/mm3 (4.6-6.2); White Blood Count 9.6 K/mm3 (4.4-11.0)
[2025-06-12 11:48] LABS: Anion Gap 10 (5-15); BUN 24 mg/dL (4-19); BUN/Creat Ratio 25.6 RATIO (10-20); Calcium,Total 9.1 mg/dL (7.6-11.0); Carbon Dioxide 26.6 mmol/L (21.0-32.0); Chloride 102 mmol/L (98-108); Estimated Creatinine Clearance 79.57 ml/min (50-250); Glucose 202 mg/dL (70-99); Potassium 4.3 mmol/L (3.3-5.1)
--- NOTE | 2025-06-12 12:39 | EDS_ITS ---
HPI HPI - Fall History of Present Illness Chief Complaint: Fall Informant: patient, family and EMS Narrative Narrative: Patient is an 79-year-old male with history of Parkinson's, prior stroke (left leg weakness and chronic right facial droop), dementia, proximal atrial fibrillation (not on any anticoagulation), hyperlipidemia, hypertension and neuropathy presenting with fall and head injury. Patient had 2 falls today. He struck his forehead slightly to the left. He is in assisted living at [facility]. Daughter is at the bedside states he falls frequently and often hits that side of his face. He is otherwise been in his normal state of health. States has been eating and drinking normally. Supposed to use a cane/walker but just carries it and does not actually use it to help with his ambulation. Daughter states his ambulation is at his baseline currently. No report of any low blood sugars (was 161 earlier today). He did take 50 units of insulin today which is normal for him. 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 200 mcg-umeclid 1 inh inhalation LIVIA Y SOB 04/12/22 Unknown History 62.5 mcg-vilant 25 mcg inhalat.powder (Trelegy Ellipta) pantoprazole 40 mg tablet,delayed 40 mg PO DAILY acid reflux 04/12/22 Unknown History release finasteride 5 mg tablet 5 mg PO DAILY urine flow Unknown History alfuzosin 10 mg tablet,extended 10 mg PO DAILY urinary retention 04/12/23 Unknown History release 24 hr cholecalciferol (vitamin D3) 25 4,000 unit PO DAILY santacruz pplement 04/12/23 Unknown History mcg (1,000 unit) capsule insulin aspart U-100 100 unit/mL See Rx Instructions . Route 04/12/23 Unknown History subcutaneous solution (Novolog .COMPLEX diabetes U-100 Insulin aspart) metformin 750 mg tablet,extended 750 mg PO QHS diabete s 04/12/23 Unknown History release 24 hr insulin glargine U-300 conc 300 54 unit subcut DAILY d iabetes 06/27/24 Unknown History unit/mL (3 mL) subcutaneous pen (Toujeo Max U-300 SoloStar) ropinirole 2 mg tablet 2 mg PO TID parkinson #270 t abs 03/20/25 Unknown Rx doxepin 25 mg capsule 25 mg PO QHS nerve pain #90 caps 03/31/25 Unknown Rx albuterol sulfate 90 mcg/actuation 2 inh inhalation Q6 H PRN shortness 06/08/25 Unknown History aerosol inhaler of breath or wheezing aspirin 81 mg tablet,delayed 81 mg PO QHS heart health 06/08/25 Unknown History release (Adult Aspirin Regimen) budesonide 1 mg/2 mL suspension 1 mg inhalation Q6H SO B 06/08/25 Unknown History for nebulization (Pulmicort) carbidopa 25 mg-levodopa 100 mg 2 tab PO 4X/DAY angel sons 06/08/25 Unknown History tablet propranolol 60 mg capsule,24 60 mg PO QHS blood pressu re 06/08/25 Unknown His tory hr,extended release amoxicillin 875 mg-potassium 1 tab PO BID #10 tabs Unknown Rx clavulanate 125 mg tablet insulin lispro 100 unit/mL See Protocol subcut 5 Unknown History subcutaneous pen (Humalog KwikPen (U-100) Insulin) Allergy/AdvReac Type Severity Reaction Status Date / Time metoclopramide (From Reglan) Allergy Severe "HYPER" Verified 06/12/25 10:41 Family History Father Leukemia Surgical History History of total left knee replacement (TKR) History of left tennis elbow Hx of spinal fusion History of skin cancer Social History household members: spouse housing: house Smoking Status: Former smoker alcohol intake: never substance use type: does not use ROS ROS ED Constitutional Constitutional ED: Denies chills or fever(s) Eyes Eyes: Reports blurry vision and other Details: Patient states he is legally blind and everything looks blurry ; Denies change in vision ENT ENT ED: Denies rhinorrhea Cardiovascular Cardiovascular: Denies chest pain Respiratory/Chest Respiratory/Chest: Denies cough Gastrointestinal Gastrointestinal: Denies nausea or vomiting Musculoskeletal Musculoskeletal: Denies arthralgias or myalgias Integumentary Reports Abrasions Neurologic Neurologic: Reports headache(s), weakness and other Details: Chronic weakness, shuffling gait and right facial droop ; Denies paresthesias Hematologic/Lymphatic Hematologic/Lymphatic: Denies easy bleeding or easy bruising EXAM Physical Exam Const Vital Signs: 06/12/25 10:40 06/12/25 10:40 06/12/25 11:33 Temperature 97.7 F L Temperature Source Oral Pulse Rate 65 70 Respiratory Rate 25 H 30 H Respiratory Effort Normal Respiratory Depth Normal Respiratory Pattern Normal Blood Pressure 116/64 Blood Pressure Mean 81 Pulse Ox 94 96 Oxygen Delivery Method Room Air 06/12/25 11:40 06/12/25 11:45 06/12/25 11:46 Temperature Temperature Source Pulse Rate 71 65 65 Respiratory Rate 18 28 H 32 H Respiratory Effort Respiratory Depth Respiratory Pattern Blood Pressure 133/64 H 133/64 H Blood Pressure Mean 87 83 Pulse Ox 98 94 95 Oxygen Delivery Method Room Air Room Air 06/12/25 12:00 06/12/25 12:15 06/12/25 12:30 Temperature Temperature Source Pulse Rate 68 79 65 Respiratory Rate 26 H 23 H 17 Respiratory Effort Respiratory Depth Respiratory Pattern Blood Pressure 133/63 H Blood Pressure Mean 83 Pulse Ox 97 Oxygen Delivery Method Room Air 06/12/25 12:45 06/12/25 13:00 06/12/25 13:15 Temperature Temperature Source Pulse Rate 68 61 70 Respiratory Rate 25 H 24 H 17 Respiratory Effort Respiratory Depth Respiratory Pattern Blood Pressure 153/64 H Blood Pressure Mean 93 Pulse Ox 98 97 96 Oxygen Delivery Method Room Air 06/12/25 13:30 06/12/25 13:45 06/12/25 14:00 Temperature 98.3 F Temperature Source Pulse Rate 63 65 69 Respiratory Rate 17 19 H 14 Respiratory Effort Respiratory Depth Respiratory Pattern Blood Pressure 118/70 Blood Pressure Mean 86 Pulse Ox 97 97 Oxygen Delivery Method Room Air Positive well nourished and well developed General Appearance ED: well developed and NAD HEENT HEENT Narrative: Cephalhematoma and abrasion to the left anterior forehead. No signs of basilar skull fracture with no hemotympanum, rhinorrhea, De La Torre sign or raccoon eyes. Moist mucosal membrane Eyes PERRL and EOMs intact bilaterally Neck supple Neck Narrative: No step-off sign General: Negative for tenderness Chest Wall inspection of chest normal and palpation of chest normal Resp normal respiratory effort Cardio regular rate, regular rhythm and no murmurs GI non-tender and non-distended Extremity Extremity Narrative: Pelvis is stable. No deformity of the lower extremities. No pain with range of motion of the lower extremities. No pain over the major joints of the upper extremity. No deformity present. Neuro oriented x3, moves all extremities, no focal motor deficits and no sensory deficits noted Neuro Narrative: No drift of the extremities. Right facial droop present. This is chronic per family and chart review. Speech is slightly slowed but very understandable. Daughter states this is his baseline speech Stacy Coma Scale: document GCS findings Spontaneous Obeys Commands Oriented 15 Sensorium / Orientation: alert Motor Exam: general weakness Psych mental status grossly normal and thought process normal Skin Skin Narrative: Forehead abrasion. No other wounds appreciated Trauma: abrasion MDM MDM MDM Narrative Medical decision making narrative: Patient evaluated for 2 mechanical falls with associated head injury. Patient has a history of frequent falls associated with his Parkinson's and per family report is not particularly compliant with using his walker appropriately. Differential includes intracranial hemorrhage, skull fracture, mechanical fall, UTI, hypoglycemia, sepsis and debility. EKG obtained which does not show any acute ischemic process. Low suspicion of cardiogenic cause of his falls. He is not claiming chest pain do not think requires high-sensitivity troponins or further cardiac workup at this time. Remains hemodynamically stable in emergency room. CBC normal. BMP shows a glucose of 202 but otherwise normal. Normal anion gap. No JOE present. CT of the brain and cervical spine do not show any acute traumatic process. Spoke with patient's daughter and the patient they felt that he needs a higher level of care/correction as he is only in assisted living. They state that at this time they think that he is fine over they will reach out to [facility] to see if he can move over to the memory care unit (they state he would qualify for because of his Parkinson's) which is skilled living instead of assisted living. At this time they feel safe with him going back to his assisted living facility. Will ambulate patient. Patient is well with ambulation. Will discharge home. Return precautions. Daughter will take him back to assisted living Lab Data Attestation: I reviewed the patient's lab results. Labs: Laboratory Results - last 24 hr 06/12/25 06/12/25 06/12/25 10:44 10:50 12:43 WBC 9.6 RBC 4.50 L Hgb 13.6 Hct 41.3 MCV 91.8 MCH 30.2 MCHC 32.9 RDW Std Deviation 42.7 RDW Coeff of Nori 12.9 Plt Count 243 MPV 10.4 Immature Gran % (Auto) 0.600 Neut % (Auto) 54.7 Lymph % (Auto) 32.8 [place] % (Auto) 9.4 Eos % (Auto) 1.9 Baso % (Auto) 0.6 Absolute Neuts (auto) 5.2 Absolute Lymphs (auto) 3.14 Nucleated RBC % 0 Sodium 139 Potassium 4.3 Chloride 102 Carbon Dioxide 26.6 Anion Gap 10 BUN 24 H Creatinine 0.94 Estim Creat Clear Calc 79.57 Est GFR (MDRD) Non-Af 82 BUN/Creatinine Ratio 25.6 H Glucose 202 H Calcium 9.1 Urine Color Yellow Urine Clarity Clear Urine pH 6.0 Ur Specific [place] 1.025 Urine Protein 15 H Urine Glucose (UA) Normal Urine Ketones 15 H Urine Occult Blood Negative Urine Nitrite Negative Urine Bilirubin Negative Urine Urobilinogen Normal Ur Leukocyte Esterase 25 H Urine RBC 0 SEEN Urine WBC 0-5 SEEN Ur Squamous Epith Cells 0-5 SEEN Urine Bacteria 0 SEEN Urine Mucus 0 SEEN POC Glucose 186 H Radiography Diagnostic Testing: Clinical Impression(s) from Imaging Studies Brain CT 06/12/25 10:43 IMPRESSION: There is no acute intracranial abnormality. Bilateral mastoid ethmoid air cell sinus disease is similar to the prior. Subcutaneous edema is noted in the left frontal region with no underlying fracture. Reading [facility] Cervical Spine CT 06/12/25 10:43 IMPRESSION: There is loss of the lordosis. There is grade 1 spondylolisthesis at C7-T1, 0.3 cm. There is loss of disc height from C 3-7. There is moderate bilateral foraminal narrowing from C3-6 secondary to bony hypertrophy. There is no visible acute traumatic injury. Reading Location[facility] Rhythm Strip Rhythm Strip: Sinus Rhythm Rate: 64 Ectopy: None EKG Initial EKG: Attestation: I personally reviewed and interpreted this EKG as follows: Interpretation: Sinus Rhythm Comments: Normal sinus rhythm at a rate of 64 bpm Normal axis Normal ST segments Right bundle branch block present Compared to prior EKG on 06/08/2025, no acute change Discharge Plan Triage Chief Complaint: Fall Other Complaint: Confusion ED Provider: Maty Dial Dx/Rx/DC Orders Clinical Impression: Fall, History of Parkinson's disease, Forehead contusion Instructions: ED Facial Contusion, ED Fall Prevention Prescriptions: No Action pravastatin 80 mg tablet 80 mg PO QDAY metformin 750 mg tablet extended release 24 hr 750 mg PO QHS insulin aspart U-100 [Novolog U-100 Insulin aspart] 100 unit/mL solution See Rx Instructions .ROUTE .COMPLEX Patient Comments: Sliding scale Rx Instructions: Sliding scale Trelegy Ellipta 200-62.5-25 mcg blister with device 1 inh inhalation DAILY pantoprazole 40 mg tablet,delayed release (DR/EC) 40 mg PO DAILY cholecalciferol (vitamin D3) 25 mcg (1,000 unit) capsule 4,000 unit PO DAILY alfuzosin 10 mg tablet extended release 24 hr 10 mg PO DAILY Rx Instructions: administer after the same meal each day insulin glargine U-300 conc [Toujeo Max U-300 SoloStar] 300 unit/mL (3 mL) insulin pen 54 unit subcut DAILY finasteride 5 mg tablet 5 mg PO DAILY ropinirole 2 mg tablet 2 mg PO TID Qty: 270 1RF doxepin 25 mg capsule 25 mg PO QHS Qty: 90 1RF insulin lispro [Humalog KwikPen Insulin] 100 unit/mL insulin pen See Protocol subcut Protocol: 6. Sliding Scale Insulin Custom Condition: mg/dl range Dose/Route: Number of Units Protocol Text: Custom Sliding Scale albuterol sulfate 90 mcg/actuation HFA aerosol inhaler 2 inh inhalation Q6H PRN (Reason: shortness of breath or wheezing) aspirin [Adult Aspirin Regimen] 81 mg tablet,delayed release (DR/EC) 81 mg PO QHS budesonide [Pulmicort] 1 mg/2 mL suspension for nebulization 1 mg inhalation Q6H Patient Comments: [NO ORIGINAL SIG] propranolol 60 mg capsule,extended release 24 hr 60 mg PO QHS carbidopa-levodopa 25-100 mg tablet 2 tab PO 4X/DAY amoxicillin-pot clavulanate 875-125 mg tablet 1 tab PO BID Qty: 10 0RF Primary Care Provider: Ja Cooley Referrals: Ja Cooley MD [Primary Care Provider] - Print Language: Setswana Disposition Disposition: Home, Self Care
[2025-06-12 12:49] LABS: Mucous, Urine 0 SEEN /hpf (<or=2+); Red Blood Cells-Urine 0 SEEN /hpf (0-5)
[2025-06-12 12:59] LABS: Color, Urine Yellow (Yellow); Glucose, Dipstick Normal (Normal); Ketone-Dipstick 15 mg/dl (Negative); Leukocyte Esterase-Dipstick 25 /ul (Negative); Nitrite-Dipstick Negative (Negative); Occult Blood-Urine Negative /ul (Negative); Protein-Dipstick 15 mg/dl (Negative); Specific Gravity, Urine 1.025 (1.002-1.030); Urine Bilirubin Dipstick Negative (Negative)
[2025-06-12 13:14] LABS: Squamous Epithelial Cells - UA 0-5 SEEN /hpf (0-5)
--- NOTE | 2025-06-12 14:22 | ED.RN ---
1423: REPORT CALLED TO [facility] FERNANDO
== END 2025-06-12 14:13 | disposition home or self-care (01) ==
PROVIDERS: Emergency Provider Emergency Medicine; PCP Family Medicine; Visit Provider Emergency Medicine
DX: S00.83XA Contusion of other part of head, initial encounter (principal); G20.A1 Parkinson's disease without dyskinesia, without mention of fluctuations; I69.352 Hemiplegia and hemiparesis following cerebral infarction affecting left dominant side; F03.90 Unspecified dementia, unspecified severity, without behavioral disturbance, psychotic disturbance, mood disturbance, and anxiety; I48.0 Paroxysmal atrial fibrillation; E11.40 Type 2 diabetes mellitus with diabetic neuropathy, unspecified; Z79.4 Long term (current) use of insulin; Z87.891 Personal history of nicotine dependence; E78.5 Hyperlipidemia, unspecified; R41.0 Disorientation, unspecified; I10 Essential (primary) hypertension; I69.392 Facial weakness following cerebral infarction; W19.XXXA Unspecified fall, initial encounter; Y92.099 Unspecified place in other non-institutional residence as the place of occurrence of the external cause; Z79.899 Other long term (current) drug therapy; K21.9 Gastro-esophageal reflux disease without esophagitis; N40.0 Benign prostatic hyperplasia without lower urinary tract symptoms; Z79.84 Long term (current) use of oral hypoglycemic drugs; Z79.82 Long term (current) use of aspirin; Z96.652 Presence of left artificial knee joint; Z85.828 Personal history of other malignant neoplasm of skin
CPT/HCPCS: 70450; 72125; 80048; 81001; 82962; 85025; 93005; 99285; A4216

== ENCOUNTER 2025-06-19 19:16 | Emergency (ER) | payer MEDICARE, OTHER, SELFPAY ==
[2025-06-19 19:18] VITALS: BP 137/66; PULSE 83; RESP 20; TEMP 37.1; O2SAT 93; BMI 35.3
[2025-06-19 19:26] VITALS: O2SAT 94
--- NOTE | 2025-06-19 19:45 | ED.VIS.FALL ---
HPI HPI - Fall History of Present Illness Chief Complaint: Fall Narrative Narrative: 79-year-old male past medical history of Parkinson's and frequent falls presents with his daughter after fall in the shower. He is a resident of [place]. He has had frequent falls, at least for the last month. He sustained multiple hematomas and ecchymosis to his face. Tonight, when he fell, he sustained a laceration just above his right eyebrow. No loss of consciousness. Denies other injuries. Tetanus immunization current according to daughter. 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 200 mcg-umeclid 1 inh inhalation DAILY SOB 04/12/22 Unknown History 62.5 mcg-vilant 25 mcg inhalat.powder (Trelegy Ellipta) pantoprazole 40 mg tablet,delayed 40 mg PO DAILY acid reflux 04/12/22 Unknown History release finasteride 5 mg tablet 5 mg PO DAILY urine flow 04/11/23 Unknown History alfuzosin 10 mg tablet,extended 10 mg PO DAILY urinary retention 04/12/23 Unknown History release 24 hr cholecalciferol (vitamin D3) 25 4,000 unit PO DAILY supplement 04/12/23 Unknown History mcg (1,000 unit) capsule insulin aspart U-100 100 unit/mL See Rx Instructions .Route 04/12/23 Unknown History subcutaneous solution (Novolog .COMPLEX diabetes U-100 Insulin aspart) metformin 750 mg tablet,extended 750 mg PO QHS diabetes 04/12/23 Unknown History release 24 hr insulin glargine U-300 conc 300 54 unit subcut DAILY diabetes 06/27/24 Unknown History unit/mL (3 mL) subcutaneous pen (Toujeo Max U-300 SoloStar) ropinirole 2 mg tablet 2 mg PO TID parkinson #270 tabs 03/20/25 Unknown Rx doxepin 25 mg capsule 25 mg PO QHS nerve pain #90 caps 03/31/25 Unknown Rx albuterol sulfate 90 mcg/actuation 2 inh inhalation Q6H PRN shortness 06/08/25 Unknown History aerosol inhaler of breath or wheezing aspirin 81 mg tablet,delayed 81 mg PO QHS heart health 06/08/25 Unknown History release (Adult Aspirin Regimen) budesonide 1 mg/2 mL suspension 1 mg inhalation Q6H SOB 06/08/25 Unknown History for nebulization (Pulmicort) carbidopa 25 mg-levodopa 100 mg 2 tab PO 4X/DAY parkinsons 06/08/25 Unknown History tablet propranolol 60 mg capsule,24 60 mg PO QHS blood pressure 06/08/25 Unknown History hr,extended release amoxicillin 875 mg-potassium 1 tab PO BID #10 tabs 06/09/25 Unknown Rx clavulanate 125 mg tablet insulin lispro 100 unit/mL See Protocol subcut 06/12/25 Unknown History subcutaneous pen (Humalog KwikPen (U-100) Insulin) Allergy/AdvReac Type Severity Reaction Status Date / Time metoclopramide (From Reglan) Allergy Severe HYPER Verified 06/12/25 10:41 Family History Father Leukemia Surgical History History of total left knee replacement (TKR) History of left tennis elbow Hx of spinal fusion History of skin cancer Social History household members: spouse housing: house Smoking Status: Former smoker alcohol intake: never substance use type: does not use ROS ROS ED ROS Narrative Review of systems positive for frequent falls, positive forehead laceration above right eyebrow. No loss of consciousness. No other injury. Previous ecchymosis and swelling to multiple areas on face. EXAM Physical Exam Narrative Exam Narrative: GCS 15. ABCs are intact. Inspection of the right forehead does show 2.3 cm laceration above the right eyebrow without active bleeding. PERRL, EOMI. Multiple ecchymosis and swelling to areas around the eyes and face from previous falls. Neurological examination consistent with Parkinson's. Cardiovascular examination regular rate and rhythm. Lungs clear to auscultation bilaterally. Abdomen soft and nontender. Const Vital Signs: 06/19/25 19:18 06/19/25 19:26 Temperature 98.7 F Temperature Source Oral Pulse Rate 83 Respiratory Rate 20 H Respiratory Effort Normal Respiratory Depth Normal Respiratory Pattern Normal Blood Pressure 137/66 H Blood Pressure Mean 89 Pulse Ox 93 94 Oxygen Delivery Method Room Air Room Air MDM MDM MDM Narrative Medical decision making narrative: States his tetanus immunization is current. Concern is for closed head injury versus intracranial hemorrhage. Based on the location of his laceration, I do not feel he needs dedicated facial bone CT. I reviewed the radiology report of the CT of the brain which shows no acute intracranial abnormality. There is moderate left frontal scalp hematoma contusion but no evidence of fracture. At this point in time, his wound will be closed on his forehead just above his eyebrow. See procedure note for details. He was told to have the sutures removed in 5 to 7 days by his primary care provider return to the emergency department. They were also warned of infection and scarring and acknowledges understanding. They will look for signs of infection as well. Return instructions to the emergency department were reviewed. I offered the patient oral analgesics here in the emergency department but he declined and will take [id number] medications at home. Disposition is discharged home in stable condition. History & Record Review Discussion w/independent historian: Patient and Family (Daughter, Barbi) Radiography Diagnostic Testing: Clinical Impression(s) from Imaging Studies Brain CT 06/19/25 19:47 IMPRESSION: 1. No acute intracranial abnormality. 2. Moderate left frontal scalp hematoma/contusion. No calvarial fracture. 3. Sinus disease involving the right maxillary sinus and anterior ethmoids. Reading Location: [id number] Procedures Lacerations Right forehead just above eyebrow: Length: 0.87 in Depth: Skin Shape: Linear Prep: Sterile Conditions and Shure-Clens Laceration repair: Irrigated (Moderately cleansed), Lidocaine and Local Number of Sutures/Joel: 5 Suture Information: Ethilon, Simple and 5-0 (For tensile strength) Comment: Patient tolerated procedure well Discharge Plan Triage Chief Complaint: Fall ED Provider: Surya Dumont Dx/Rx/DC Orders Clinical Impression: Frequent falls, Parkinson's disease, Forehead laceration Instructions: ED Laceration, All Closures, ED Fall Prevention Prescriptions: No Action pravastatin 80 mg tablet 80 mg PO QDAY metformin 750 mg tablet extended release 24 hr 750 mg PO QHS insulin aspart U-100 [Novolog U-100 Insulin aspart] 100 unit/mL solution See Rx Instructions .ROUTE .COMPLEX Patient Comments: Sliding scale Rx Instructions: Sliding scale Trelegy Ellipta 200-62.5-25 mcg blister with device 1 inh inhalation DAILY pantoprazole 40 mg tablet,delayed release (DR/EC) 40 mg PO DAILY cholecalciferol (vitamin D3) 25 mcg (1,000 unit) capsule 4,000 unit PO DAILY alfuzosin 10 mg tablet extended release 24 hr 10 mg PO DAILY Rx Instructions: administer after the same meal each day insulin glargine U-300 conc [Toujeo Max U-300 SoloStar] 300 unit/mL (3 mL) insulin pen 54 unit subcut DAILY finasteride 5 mg tablet 5 mg PO DAILY ropinirole 2 mg tablet 2 mg PO TID Qty: 270 1RF doxepin 25 mg capsule 25 mg PO QHS Qty: 90 1RF insulin lispro [Humalog KwikPen Insulin] 100 unit/mL insulin pen See Protocol subcut Protocol: 6. Sliding Scale Insulin Custom Condition: mg/dl range Dose/Route: Number of Units Protocol Text: Custom Sliding Scale albuterol sulfate 90 mcg/actuation HFA aerosol inhaler 2 inh inhalation Q6H PRN (Reason: shortness of breath or wheezing) aspirin [Adult Aspirin Regimen] 81 mg tablet,delayed release (DR/EC) 81 mg PO QHS budesonide [Pulmicort] 1 mg/2 mL suspension for nebulization 1 mg inhalation Q6H Patient Comments: [NO ORIGINAL SIG] propranolol 60 mg capsule,extended release 24 hr 60 mg PO QHS carbidopa-levodopa 25-100 mg tablet 2 tab PO 4X/DAY amoxicillin-pot clavulanate 875-125 mg tablet 1 tab PO BID Qty: 10 0RF Primary Care Provider: Ja Cooley Referrals: Ja Cooley MD [Primary Care Provider] - 5 Days for suture removal Activity Restrictions/Additional Instructions: [id number] medications like Tylenol or ibuprofen as needed for pain. Have sutures removed in 5 days. Look for signs of infection including fever, increased redness to area, drainage of pus from wound. Return with new or worsening symptoms. Print Language: Armenian Disposition Disposition: Home, Self Care
--- NOTE | 2025-06-19 19:47 | CT_ITS ---
PROCEDURE: BRAIN/HEAD WITHOUT CONTRAST 06/19/2025 REASON FOR EXAM: TRAUMA TECHNIQUE: BRAIN/HEAD WITHOUT CONTRAST Coronal and Sagittal reconstruction series were provided. One or more dose reduction techniques were used (e.g., Automated exposure control, adjustment of the mA and/or kV according to patient size, use of iterative reconstruction technique. RADIATION DOSE SUMMARY: CTDlvol: 44.99 mGy DLP: 897.35 mGycm COMPARISON: 06/12/2025 FINDINGS: No acute intracranial hemorrhage, extra-axial collection, mass effect or acute infarct. Mild generalized brain parenchymal volume loss and chronic microangiopathic changes. Atherosclerotic vascular calcifications. Orbital contents are unremarkable. Moderate left frontal scalp hematoma/contusion. No acute skull base or calvarial fracture. No mastoid effusions. Scattered mucoperiosteal thickening in the paranasal sinuses, most pronounced in the bilateral anterior ethmoid air cells and right maxillary sinus, no air-fluid levels. CT/Brain/Head without Contrast IMPRESSION: 1. No acute intracranial abnormality. 2. Moderate left frontal scalp hematoma/contusion. No calvarial fracture. 3. Sinus disease involving the right maxillary sinus and anterior ethmoids. Reading Location: [id number]
[2025-06-19] MEDS: Lidocaine 1% (20 ml mdv) 20 ML Vial INFILT (19:54)
[2025-06-19 21:17] VITALS: BP 142/66; PULSE 85; RESP 18; O2SAT 93
[2025-06-19 21:29] VITALS: BP 142/66; PULSE 85; RESP 18; TEMP 37.1; O2SAT 93
== END 2025-06-19 21:32 | disposition home or self-care (01) ==
PROVIDERS: Emergency Provider Emergency Medicine; PCP Family Medicine; Visit Provider Emergency Medicine
DX: S01.81XA Laceration without foreign body of other part of head, initial encounter (principal); G20.A1 Parkinson's disease without dyskinesia, without mention of fluctuations; I48.0 Paroxysmal atrial fibrillation; E11.9 Type 2 diabetes mellitus without complications; Z79.4 Long term (current) use of insulin; Z87.891 Personal history of nicotine dependence; I10 Essential (primary) hypertension; W18.2XXA Fall in (into) shower or empty bathtub, initial encounter; E78.5 Hyperlipidemia, unspecified; R29.6 Repeated falls; Y92.89 Other specified places as the place of occurrence of the external cause; K21.9 Gastro-esophageal reflux disease without esophagitis; Z79.899 Other long term (current) drug therapy; N40.0 Benign prostatic hyperplasia without lower urinary tract symptoms; Z79.84 Long term (current) use of oral hypoglycemic drugs
CPT/HCPCS: 12011; 70450; 99284

== ENCOUNTER 2025-07-07 03:54 | Emergency (ER) | payer MEDICARE, OTHER, SELFPAY ==
[2025-07-07 03:54] VITALS: BP 161/82; PULSE 94; RESP 16; TEMP 37.1; O2SAT 96; BMI 34.7
--- NOTE | 2025-07-07 04:04 | CT_ITS ---
PROCEDURE: SPINE CERVICAL WITHOUT CONTRAS 07/07/2025 REASON FOR EXAM: TRAUMA TECHNIQUE: SPINE CERVICAL WITHOUT CONTRAS Coronal and Sagittal reconstruction series were provided. One or more dose reduction techniques were used (e.g., Automated exposure control, adjustment of the mA and/or kV according to patient size, use of iterative reconstruction technique. RADIATION DOSE SUMMARY: CTDlvol: 25 mGy DLP: 644 mGycm COMPARISON: CT scan on 06/12/2025. FINDINGS: There are diffuse spondylotic changes. Findings are demonstrated to by diffuse disc space narrowing, osteophyte formation and degenerative endplate sclerosis. There is diffuse facet joint arthropathy with secondary bilateral neural foramina narrowing. No fracture or dislocation is seen. No aggressive lytic or blastic bony lesion is noted. CT/Spine Cervical without Contras IMPRESSION: No CT evidence of an acute abnormality. Reading Location[facility]
--- NOTE | 2025-07-07 04:04 | CT_ITS ---
PROCEDURE: BRAIN/HEAD WITHOUT CONTRAST 07/07/2025 REASON FOR EXAM: HEAD TRAUMA TECHNIQUE: BRAIN/HEAD WITHOUT CONTRAST Coronal and Sagittal reconstruction series were provided. One or more dose reduction techniques were used (e.g., Automated exposure control, adjustment of the mA and/or kV according to patient size, use of iterative reconstruction technique. RADIATION DOSE SUMMARY: CTDlvol: 25.49 mGy DLP: 644 mGycm COMPARISON: 06/19/2025. FINDINGS: Mild diffuse cortical atrophy, commensurate with the patient's age. Scattered hypodense foci in the periventricular and subcortical white matter suggestive of chronic ischemic white matter disease. Normal size of the ventricles and extra-axial spaces for the patient's age. Normal basal ganglia and thalami. Normal brainstem. Normal cerebellum. There is no demonstrated extra-axial, intraparenchymal, or intraventricular hemorrhage. There are no findings of an acute ischemic infarction. Normal calvarium. There is no demonstrated fracture. Left frontal subgaleal soft tissue hematoma, decreased since the prior exam. Normal visualized paranasal sinuses. CT/Brain/Head without Contrast IMPRESSION: Left frontal subgaleal soft tissue hematoma, decreased since the prior exam. No other interval change is noted. [facility]
--- NOTE | 2025-07-07 04:05 | EDS_ITS ---
HPI HPI - Fall History of Present Illness Chief Complaint: Fall Informant: patient and family Occured/Mechanism Occurred: Today Mechanism/Context: Yes same level fall and Yes trip Usually ambulates: Cane Pain/Injury Pain Location: head and neck Quality of Pain: Dull and Aching Current Severity: Mild Maximum Severity: Mild Associated Symptoms Associated Symptoms: Negative for Parasthesias, Weakness, Loss of function, Inability to ambulate, Loss of consciousness or Amnesia Narrative Narrative: 79-year-old male history of A-fib, diabetes and Parkinson's disease. He has had frequent falls. Currently is a [facility] of [facility]. 2:30 this morning he was walking he tripped he normally uses his cane and he fell forward striking his forehead. He has had recent falls in the last several weeks. This is kind of acute on chronic. Family members hears that the swelling is worse on his forehead he has got recent bruising. He also hit his right knee. Denies any LOC. Denies being on any blood thinners. 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 200 mcg-umeclid 1 inh inhalation LIVIA Y SOB 04/12/22 Unknown History 62.5 mcg-vilant 25 mcg inhalat.powder (Trelegy Ellipta) pantoprazole 40 mg tablet,delayed 40 mg PO DAILY acid reflux 04/12/22 Unknown H istory release finasteride 5 mg tablet 5 mg PO DAILY urine flow Unknown History alfuzosin 10 mg tablet,extended 10 mg PO DAILY urinary retention 04/12/23 Unknown History release 24 hr cholecalciferol (vitamin D3) 25 4,000 unit PO DAILY santacruz pplement 04/12/23 Unknown History mcg (1,000 unit) capsule insulin aspart U-100 100 unit/mL See Rx Instructions . Route 04/12/23 Unknown History subcutaneous solution (Novolog .COMPLEX diabetes U-100 Insulin aspart) metformin 750 mg tablet,extended 750 mg PO QHS diabete s 04/12/23 Unknown History release 24 hr insulin glargine U-300 conc 300 54 unit subcut DAILY d iabetes 06/27/24 Unknown History unit/mL (3 mL) subcutaneous pen (Toujeo Max U-300 SoloStar) doxepin 25 mg capsule 25 mg PO QHS nerve pain #90 caps 03/31/25 Unknown Rx albuterol sulfate 90 mcg/actuation 2 inh inhalation Q6 H PRN shortness 06/08/25 Unknown History aerosol inhaler of breath or wheezing aspirin 81 mg tablet,delayed 81 mg PO QHS heart health 06/08/25 Unknown History release (Adult Aspirin Regimen) budesonide 1 mg/2 mL suspension 1 mg inhalation Q6H SO B 06/08/25 Unknown History for nebulization (Pulmicort) propranolol 60 mg capsule,24 60 mg PO QHS blood pressu re 06/08/25 Unknown History hr,extended release insulin lispro 100 unit/mL See Protocol subcut 5 Unknown History subcutaneous pen (Humalog KwikPen (U-100) Insulin) ropinirole 1 mg tablet 1 mg PO TID #21 tabs 5 Unknown Rx carbidopa 25 mg-levodopa 100 mg 2 tab PO 4X/DAY angel sons #720 06/29/25 Unknown Rx tablet tabs sertraline 50 mg tablet 50 mg PO QAM #30 tabs Unknown Rx Allergy/AdvReac Type Severity Reaction Status Date / Time metoclopramide (From Reglan) Allergy Severe HYPER Verified 06/27/25 13:32 Family History Father Leukemia Surgical History History of total left knee replacement (TKR) History of left tennis elbow Hx of spinal fusion History of skin cancer Social History household members: spouse housing: [facility] Smoking Status: Former smoker alcohol intake: never substance use type: does not use ROS ROS ED ROS Narrative Denies recent illness. Constitutional Constitutional ED: Denies chills or fever(s) Eyes Eyes: Denies blurry vision ENT ENT ED: Denies ear pain Cardiovascular Cardiovascular: Denies chest pain Respiratory/Chest Respiratory/Chest: Denies cough or dyspnea Gastrointestinal Gastrointestinal: Denies abdominal pain Genitourinary Genitourinary ED: Denies dysuria or hematuria Musculoskeletal Musculoskeletal: Denies arthralgias Integumentary Denies abscess Neurologic Neurologic: Denies headache(s) Psychiatric Psychiatric: Denies anxiety or depression Endocrine Endocrinology: Denies polydipsia Hematologic/Lymphatic Hematologic/Lymphatic: Denies easy bleeding, easy bruising or lymphadenopathy Allergic/Immunologic Allergic/Immunologic ED: Denies mouth swelling, tongue swelling or urticaria EXAM Physical Exam Narrative Exam Narrative: 79-year-old male sitting upright in bed. Vital signs are stable afebrile. Pulse ox 96% on room air no hypoxia. He is in no distress. Family members at bedside. H EENT exam pupils are round and reactive to light. Extra motions are intact. He has a contusion on his forehead and abrasion. Swelling. Bruising below both eyes which is from another recent fall. Nasal bone intact. No bleeding. Dentition intact. Moist mucous membranes. Scalp is nontender no hematoma nor laceration. C-spine he complains of tenderness. Trachea midline. Back and spine nontender. Thoracic and lumbar spine are nontender. There is no bruising. Lungs clear to auscultation bilaterally. Heart rate about 90 no murmur. Chest wall and ribs nontender. No ecchymosis or bruising. No subcu air or crepitus. Abdomen is soft and nontender. Pelvic girdle is intact. He has normal union representative strength and range of motion of both upper extremities are nontender. Left lower extremity is nontender no deformity. Prior knee replacement incisional scar. Right hip ankle and foot are nontender. He has mild tenderness to his right knee with an abrasion. He can flex extend at both knees and hips. He is also had knee replacement surgery on the right knee also. No effusion. Neurologically he is awake. Alert. Answering questions following commands. He remembers the fall. Const Vital Signs: 07/07/25 03:54 Temperature 98.7 F Temperature Source Oral Pulse Rate 94 Respiratory Rate 16 Blood Pressure 161/82 H Blood Pressure Mean 108 Pulse Ox 96 Oxygen Delivery Method Room Air Positive well nourished and well developed; Negative for cachectic, contractures or unkempt General Appearance ED: well developed and NAD; Negative for unkempt, cachectic or contractures Nutritional Appearance: Negative for cachectic HEENT Reports normocephalic HEENT Narrative: Right forehead contusion and hematoma. Abrasion. Mild tenderness. No active bleeding. No laceration. Bruising to both cheeks. trauma, contusion, hematoma and tenderness Eyes PERRL and EOMs intact bilaterally Neck No full ROM, no lymphadenopathy and supple Neck Narrative: Neck tenderness. Nonspecific. General: tenderness Chest Wall inspection of chest normal and palpation of chest normal Chest Narrative: Nontender chest wall and ribs. Resp normal respiratory effort, no retractions and clear to auscultation bilaterally Cardio regular rate, regular rhythm, S1 normal heart sound, S2 normal heart sound and no murmurs GI non-tender, non-distended and no masses Auscultation: normoactive bowel sounds Palpation: soft; Negative for guarding Back/Spine no CVA tenderness Extremity Extremity Narrative: Abrasion contusion right knee. Able to flex and extend both knees. Hips are nontender. Neuro oriented x3, CN's II-XII intact bilaterally, moves all extremities and no focal motor deficits Sensorium / Orientation: alert, oriented to person, oriented to place and oriented to time Psych mental status grossly normal and thought process normal Appearance: Negative for unkempt Skin Skin Narrative: Right knee abrasion contusion. Right forehead abrasion contusion. Lesions: no lesions Rashes: no rashes Trauma: abrasion MDM MDM MDM Narrative Medical decision making narrative: 79-year-old male [facility] with head injury complaint neck pain. CT brain and neck will be obtained. Right knee x-ray to injury to his right knee when he fell. He did not want anything for pain. Repeat exam patient is doing well at 5:18 AM. Will clean and dress the right knee. I went over the CAT scan results of his head and neck with his family. The knee x-ray. We discharged to home. Head injury instructions. Wound care. History & Record Review Discussion w/independent historian: Patient and Family Additional record(s) reviewed:: Prior inpatient record, Prior outpatient record, Prior ED visit and Prior labs Radiography Diagnostic Testing: Clinical Impression(s) from Imaging Studies Brain CT 07/07/25 04:04 IMPRESSION: Left frontal subgaleal soft tissue hematoma, decreased since the prior exam. No other interval change is noted. Reading [facility] Cerv[facility] Spine CT 07/07/25 04:04 IMPRESSION: No CT evidence of an acute abnormality. Reading Location[facility] Knee X-Ray 07/07/25 04:34 IMPRESSION: Intact knee arthroplasty. Post operative changes. Reading [facility] Right knee x-ray, 4 views, interpreted by myself shows a total knee replacement. No acute fracture. No dislocation. Discharge Plan Triage Chief Complaint: Fall ED Provider: Yadiel Deras Dx/Rx/DC Orders Prescriptions: No Action pravastatin 80 mg tablet 80 mg PO QDAY metformin 750 mg tablet extended release 24 hr 750 mg PO QHS insulin aspart U-100 [Novolog U-100 Insulin aspart] 100 unit/mL solution See Rx Instructions .ROUTE .COMPLEX Patient Comments: Sliding scale Rx Instructions: Sliding scale Trelegy Ellipta 200-62.5-25 mcg blister with device 1 inh inhalation DAILY pantoprazole 40 mg tablet,delayed release (DR/EC) 40 mg PO DAILY cholecalciferol (vitamin D3) 25 mcg (1,000 unit) capsule 4,000 unit PO DAILY alfuzosin 10 mg tablet extended release 24 hr 10 mg PO DAILY Rx Instructions: administer after the same meal each day insulin glargine U-300 conc [Toujeo Max U-300 SoloStar] 300 unit/mL (3 mL) insulin pen 54 unit subcut DAILY finasteride 5 mg tablet 5 mg PO DAILY doxepin 25 mg capsule 25 mg PO QHS Qty: 90 1RF ropinirole 1 mg tablet 1 mg PO TID Qty: 21 0RF carbidopa-levodopa 25-100 mg tablet 2 tab PO 4X/DAY Qty: 720 0RF sertraline 50 mg tablet 50 mg PO QAM Qty: 30 4RF insulin lispro [Humalog KwikPen Insulin] 100 unit/mL insulin pen See Protocol subcut Protocol: 6. Sliding Scale Insulin Custom Condition: mg/dl range Dose/Route: Number of Units Protocol Text: Custom Sliding Scale albuterol sulfate 90 mcg/actuation HFA aerosol inhaler 2 inh inhalation Q6H PRN (Reason: shortness of breath or wheezing) aspirin [Adult Aspirin Regimen] 81 mg tablet,delayed release (DR/EC) 81 mg PO QHS budesonide [Pulmicort] 1 mg/2 mL suspension for nebulization 1 mg inhalation Q6H Patient Comments: [NO ORIGINAL SIG] propranolol 60 mg capsule,extended release 24 hr 60 mg PO QHS Primary Care Provider: Ja Cooley Referrals: Ja Cooley MD [Primary Care Provider] - Print Language: Belarusian
--- NOTE | 2025-07-07 04:34 | RAD_ITS ---
PROCEDURE: KNEE 4 OR MORE VIEWS 07/07/2025 REASON FOR EXAM: FALL TECHNIQUE: KNEE 4 OR MORE VIEWS Laterality: Right COMPARISON: 12/26/2023 FINDINGS: Intact knee arthroplasty is seen. Diffuse soft tissue swelling, air foci and effusion are seen. Surgical clips are seen. No definite fracture or dislocation seen. Moderate joint effusion in the suprapatellar bursa. Intact knee arthroplasty. Post operative changes. RAD/Knee 4 or More Views IMPRESSION: Intact knee arthroplasty. Post operative changes. Reading [facility]
[2025-07-07 05:18] VITALS: BP 152/84; PULSE 94; RESP 16; TEMP 37.1; O2SAT 96
== END 2025-07-07 05:44 | disposition home or self-care (01) ==
PROVIDERS: Emergency Provider Emergency Medicine; PCP Family Medicine; Visit Provider Emergency Medicine
DX: S80.211A Abrasion, right knee, initial encounter (principal); I48.0 Paroxysmal atrial fibrillation; E11.9 Type 2 diabetes mellitus without complications; Z79.4 Long term (current) use of insulin; I10 Essential (primary) hypertension; E78.5 Hyperlipidemia, unspecified; Z87.891 Personal history of nicotine dependence; W01.10XA Fall on same level from slipping, tripping and stumbling with subsequent striking against unspecified object, initial encounter; Y93.01 Activity, walking, marching and hiking; Y92.89 Other specified places as the place of occurrence of the external cause; Z79.899 Other long term (current) drug therapy; K21.9 Gastro-esophageal reflux disease without esophagitis; N40.0 Benign prostatic hyperplasia without lower urinary tract symptoms; Z79.84 Long term (current) use of oral hypoglycemic drugs; Z79.82 Long term (current) use of aspirin; Z85.828 Personal history of other malignant neoplasm of skin; Z96.651 Presence of right artificial knee joint
CPT/HCPCS: 70450; 72125; 73564; 99284

== ENCOUNTER 2025-07-12 18:02 | Emergency (ER) | payer MEDICARE, OTHER, SELFPAY ==
[2025-07-12 18:05] VITALS: BP 158/72; PULSE 98; RESP 18; TEMP 36.9; O2SAT 96; BMI 35.2
--- NOTE | 2025-07-12 18:32 | CT_ITS ---
PROCEDURE: BRAIN/HEAD WITHOUT CONTRAST 07/12/2025 REASON FOR EXAM: TRAUMA Initial encounter. TECHNIQUE: BRAIN/HEAD WITHOUT CONTRAST Coronal and Sagittal reconstruction series were provided. One or more dose reduction techniques were used (e.g., Automated exposure control, adjustment of the mA and/or kV according to patient size, use of iterative reconstruction technique. RADIATION DOSE SUMMARY: CTDlvol: 44.99 mGy DLP: 863.60 mGycm COMPARISON: CT brain July 07, 2025 June 19, 2025 June 12, 2025 FINDINGS: Brain: No intra-axial or extra-axial hemorrhage. No mass, mass effect or midline shift CSF Spaces: Ventricles and sulci are age-appropriate Sinuses/Mastoids: No bloody effusions. No sinus disease. Bones: No fracture identified. CT/Brain/Head without Contrast IMPRESSION: No acute intra calvarial injury. No skull fracture identified. Reading Location[facility]
--- NOTE | 2025-07-12 18:33 | EX.ED.GENINJ ---
HPI History of Present Illness Chief Complaint: Head Injury Narrative Narrative: 79-year-old male presents from [place] via EMS with fall with injury to back of head. He has past medical history of Parkinson disease and has frequent falls. He also has dementia. Today, he fell again and hit the back of his head. No loss of consciousness. He does not take blood thinners. States he does not really feel well. He denies fevers or chills, no nausea or vomiting, but his daughter does state that the nurses requested a urinalysis and culture and sensitivities. He presents because of the fall with injury to the back of his head. 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 200 mcg-umeclid 1 inh inhalation DAILY SOB 04/12/22 Unknown History 62.5 mcg-vilant 25 mcg inhalat.powder (Trelegy Ellipta) pantoprazole 40 mg tablet,delayed 40 mg PO DAILY acid reflux 04/12/22 Unknown History release finasteride 5 mg tablet 5 mg PO DAILY urine flow 04/11/23 Unknown History alfuzosin 10 mg tablet,extended 10 mg PO DAILY urinary retention 04/12/23 Unknown History release 24 hr cholecalciferol (vitamin D3) 25 4,000 unit PO DAILY supplement 04/12/23 Unknown History mcg (1,000 unit) capsule insulin aspart U-100 100 unit/mL See Rx Instructions .Route 04/12/23 Unknown History subcutaneous solution (Novolog .COMPLEX diabetes U-100 Insulin aspart) metformin 750 mg tablet,extended 750 mg PO QHS diabetes 04/12/23 Unknown History release 24 hr insulin glargine U-300 conc 300 54 unit subcut DAILY diabetes 06/27/24 Unknown History unit/mL (3 mL) subcutaneous pen (Toujeo Max U-300 SoloStar) albuterol sulfate 90 mcg/actuation 2 inh inhalation Q6H PRN shortness 06/08/25 Unknown History aerosol inhaler of breath or wheezing aspirin 81 mg tablet,delayed 81 mg PO QHS heart health 06/08/25 Unknown History release (Adult Aspirin Regimen) budesonide 1 mg/2 mL suspension 1 mg inhalation Q6H SOB 06/08/25 Unknown History for nebulization (Pulmicort) insulin lispro 100 unit/mL See Protocol subcut 06/12/25 Unknown History subcutaneous pen (Humalog KwikPen (U-100) Insulin) ropinirole 1 mg tablet 1 mg PO TID #21 tabs 06/26/25 Unknown Rx carbidopa 25 mg-levodopa 100 mg 2 tab PO 4X/DAY parkinsons #720 06/29/25 Unknown Rx tablet tabs sertraline 50 mg tablet 50 mg PO QAM #30 tabs 07/03/25 Unknown Rx doxepin 25 mg capsule 25 mg PO QHS nerve pain #90 caps 07/11/25 Unknown Rx propranolol 60 mg capsule,24 60 mg PO QHS blood pressure #90 07/11/25 Unknown Rx hr,extended release caps Allergy/AdvReac Type Severity Reaction Status Date / Time metoclopramide (From Reglan) Allergy Severe HYPER Verified 07/12/25 18:03 Family History Father Leukemia Surgical History History of total left knee replacement (TKR) History of left tennis elbow Hx of spinal fusion History of skin cancer Social History household members: spouse housing: senior living Smoking Status: Former smoker alcohol intake: never substance use type: does not use ROS ROS ED ROS Narrative Review of systems positive for mild headache status post fall after hitting the back of his head. No neck pain. Denies fever or chills, no nausea or vomiting. No dysuria or hematuria. Generalized malaise and not feeling well after fall. EXAM Physical Exam Narrative Exam Narrative: Afebrile. Vital signs noted. Nontoxic-appearing. Cardiovascular semination reveals regular rate and rhythm. Lungs clear to auscultation bilaterally. Abdomen soft and nontender with positive bowel sounds. Neurological examination shows him to be awake, alert, answering questions appropriately. Multiple facial scars with improved bruising over previous. Const Vital Signs: 07/12/25 18:05 07/12/25 18:07 07/12/25 20:03 Temperature 98.4 F Temperature Source Oral Pulse Rate 98 101 H Respiratory Rate 18 17 Respiratory Effort Normal Respiratory Depth Normal Respiratory Pattern Normal Blood Pressure 158/72 H 167/91 H Blood Pressure Mean 100 116 Pulse Ox 96 93 Oxygen Delivery Method Room Air Room Air MDM MDM MDM Narrative Medical decision making narrative: Differential diagnosis includes but not limited to closed head injury versus intracranial hemorrhage. I will obtain a UA at the patient's daughter's request and urine culture sent as well. Patient does not take blood thinners. He does have frequent falls from Parkinson's disease, but no recollection of the last visit, he does not want to be admitted afterwards. CT of the brain will be obtained to help rule out hemorrhage. I reviewed the radiology report of the CT of the brain and there is no acute hemorrhage, no acute process. Urinalysis obtained and reviewed and there is no evidence of infection with 0-5 WBCs and 0 bacteria. I do not feel antibiotics are indicated. Urine culture is pending. I was approached by the patient's daughter who stated that his constant glucose monitor was reading high. BMP was obtained and while his glucose is elevated to 56 he has a normal anion gap of 13 with a BUN of 24 and creatinine 1.16. At this point in time, I feel he can be discharged to follow-up and take his nighttime diabetic medications. Return instructions to the emergency department were reviewed. Disposition is discharged home in stable condition. History & Record Review Discussion w/independent historian: Patient and Family (Daughter) Additional record(s) reviewed:: Prior ED visit (Frequent falls) Lab Data Attestation: I reviewed the patient's lab results. Labs: Laboratory Results - last 24 hr 07/12/25 07/12/25 18:50 19:30 Sodium 141 Potassium 4.0 Chloride 104 Carbon Dioxide 24.0 Anion Gap 13 BUN 24 H Creatinine 1.16 Estim Creat Clear Calc 63.51 Est GFR (MDRD) Non-Af 64 BUN/Creatinine Ratio 20.4 H Glucose 256 H Calcium 9.0 Urine Color Yellow Urine Clarity Clear Urine pH 6.0 Ur Specific [place] 1.020 Urine Protein 30 H Urine Glucose (UA) 1000 H Urine Ketones 5 H Urine Occult Blood 10 H Urine Nitrite Negative Urine Bilirubin Negative Urine Urobilinogen 1 H Ur Leukocyte Esterase Negative Urine RBC 0-5 SEEN Urine WBC 0-5 SEEN Ur Squamous Epith Cells 0 SEEN Urine Bacteria 0 SEEN Urine Mucus 0 SEEN Radiography Diagnostic Testing: Clinical Impression(s) from Imaging Studies Brain CT 07/12/25 18:32 IMPRESSION: No acute intra calvarial injury. No skull fracture identified. [facility] Plan Triage Chief Complaint: Head Injury ED Provider: Surya Dumont Dx/Rx/DC Orders Clinical Impression: Frequent falls, Parkinson's disease, Closed head injury, Hyperglycemia due to diabetes mellitus Instructions: Parkinson Disease- Home Safety, ED Diabetic Hyperglycemia, ED Head Injury (Adult), ED Fall Prevention Prescriptions: No Action pravastatin 80 mg tablet 80 mg PO QDAY metformin 750 mg tablet extended release 24 hr 750 mg PO QHS insulin aspart U-100 [Novolog U-100 Insulin aspart] 100 unit/mL solution See Rx Instructions .ROUTE .COMPLEX Patient Comments: Sliding scale Rx Instructions: Sliding scale Trelegy Ellipta 200-62.5-25 mcg blister with device 1 inh inhalation DAILY pantoprazole 40 mg tablet,delayed release (DR/EC) 40 mg PO DAILY cholecalciferol (vitamin D3) 25 mcg (1,000 unit) capsule 4,000 unit PO DAILY alfuzosin 10 mg tablet extended release 24 hr 10 mg PO DAILY Rx Instructions: administer after the same meal each day insulin glargine U-300 conc [Toujeo Max U-300 SoloStar] 300 unit/mL (3 mL) insulin pen 54 unit subcut DAILY finasteride 5 mg tablet 5 mg PO DAILY ropinirole 1 mg tablet 1 mg PO TID Qty: 21 0RF carbidopa-levodopa 25-100 mg tablet 2 tab PO 4X/DAY Qty: 720 0RF sertraline 50 mg tablet 50 mg PO QAM Qty: 30 4RF insulin lispro [Humalog KwikPen Insulin] 100 unit/mL insulin pen See Protocol subcut Protocol: 6. Sliding Scale Insulin Custom Condition: mg/dl range Dose/Route: Number of Units Protocol Text: Custom Sliding Scale albuterol sulfate 90 mcg/actuation HFA aerosol inhaler 2 inh inhalation Q6H PRN (Reason: shortness of breath or wheezing) aspirin [Adult Aspirin Regimen] 81 mg tablet,delayed release (DR/EC) 81 mg PO QHS budesonide [Pulmicort] 1 mg/2 mL suspension for nebulization 1 mg inhalation Q6H Patient Comments: [NO ORIGINAL SIG] propranolol 60 mg capsule,extended release 24 hr 60 mg PO QHS Qty: 90 0RF doxepin 25 mg capsule 25 mg PO QHS Qty: 90 0RF Primary Care Provider: Ja Cooley Referrals: Ja Cooley MD [Primary Care Provider] - Activity Restrictions/Additional Instructions: Take your diabetic medications as previously directed. Tylenol or ibuprofen as needed for pain. Follow-up with your primary care provider. Return with new or worsening symptoms. Print Language: Bulgarian Disposition Disposition: Home, Self Care
[2025-07-12 19:10] LABS: Mucous, Urine 0 SEEN /hpf (<or=2+); Squamous Epithelial Cells - UA 0 SEEN /hpf (0-5)
[2025-07-12 19:13] LABS: Color, Urine Yellow (Yellow); Glucose, Dipstick 1000 mg/dl (Normal); Ketone-Dipstick 5 mg/dl (Negative); Leukocyte Esterase-Dipstick Negative /ul (Negative); Nitrite-Dipstick Negative (Negative); Occult Blood-Urine 10 /ul (Negative); Protein-Dipstick 30 mg/dl (Negative); Specific Gravity, Urine 1.020 (1.002-1.030); Urine Bilirubin Dipstick Negative (Negative)
--- OUTSIDE RECORDS SUMMARY | 2025-07-12 19:16 | XMS RPT_ITS | CCD ---
Author Organization [facility] ion Partnership [facility] Care Team Providers Care Health Practice Manager Name Role Phone Emigdio Crump (Historic) Primary Care Prov ider Patricia Mcgowan Primary Care Provider Unavailable Primary Care Provider Daniel Mcgowan MD, Patricia Ramon Primary Care Provider BARB MORTON Attending Unavailab le JOLLIFF, PTARICIA RAMON Primary Care Unavailable SELENEBARB TUBBS Referring Unavailab le SELENE, BARB MAS Attending Unavailab le JOLLIFF, PATRICIA TRISTEN Primary Care Unavailable SELENEBARB Admitting Unavailab le JOLLIFF, PATRICIA [facility] Primary Care Unavailable SELENE, BARB MAS Attending Unavailab le SELENEBARB Referring Unavailab le JOLLIFF, PATRICIA RAMON Referring Unavailable SELENEBARB Admitting Unavailab le SELENE, BARB MAS Attending Unavailab le SELENEBARB Referring Unavailab le JOLLIFF, PATRICIA TRISTEN Primary Care Unavailable SELENEBARB Admitting Unavailab SARAH Peace Attending Unavailable SELENEBARB Admitting Unavailab HARPAL Brody Attending Unavailable JOLLIFF, PATRICIA [facility] Primary Care Unavailable SELENEBARB Referring Unavailab le SELENE, BARB MAS Attending Unavailab le JOLLIFF, PATRICIA TRISTEN Primary Care Unavailable SELENEBARB TUBBS Referring Unavailab le JOLLIFF, PATRICIA [facility] Primary Care Unavailable SELENE, BARB MAS Attending Unavailab le SELENEBARB Referring Unavailab le JOLLIFF, PATRICIA TRISTEN Primary Care Unavailable JASPREET QURESHI Attending Unavailable Ja Cooley [place] Primary Care Provider [phone] Dr. Patricia Mcgowan Referring Provider Dr. Vladimir Sears Attending Provider Dr. Ja Cooley Primary Care Provider [phone] Dr. Silverio Amin Attending Provider Ja Cooley [place] Primary Care Provider Ja Cooley [place] Primary Care Provider Ja Cooley [place] Primary Care Provider [phone] L[facility] Erika K Unavailable [phone] Ja Cooley [place] Primary Care Provider [phone] Lalo [facility], Erika K Unavailable [facility], Tatiana Unavailable PATRICIA MCGOWAN Primary Care Unavailable LIZBETH, JAYLYN Attending Unavailable GARY RUIZ Attending Unavailable LIZBETH, JAYLYN Referring Unavailable [facility] Primary Care Unavailabl e LIZBETH, JAYLYN Referring Unavailable ALEIDA RAMIREZ Attending Unavailable [facility] Primary Care Unavailabl e LIZBETH, JAYLYN Attending Unavailable [facility], [facility] Primary Care Unavailabl e LIZBETH, JAYLYN Attending Unavailable LIZBETH, JAYLYN Referring Unavailable [facility], [facility] Primary Care Unavailabl e [facility], [facility] Primary Care Unavailabl e MAINE MEDEL Attending Unavailable LIZBETH, JAYLYN Referring Unavailable [facility], [facility] Primary Care Unavailabl e WILLIS RYDER Attending Unavailable LIZBETH, JAYLYN Referring Unavailable [facility], [facility] Primary Care Unavailabl e WILLIS RYEDR Attending Unavailable LIZBETH, JAYLYN Referring Unavailable LIZBETH, JAYLYN Referring Unavailable [facility], [facility] Primary Care Unavailabl e BEBBWILLIS Attending Unavailable BEWILLIS WEEKS Attending Unavailable LIZBETH, JAYLYN Referring Unavailable [facility], [facility] Primary Care Unavailabl e [facility], [facility] Primary Care Unavailabl e LIZBETH, JAYLYN Referring Unavailable [facility], [facility] Primary Care UnavailJAYLYN Dixon Referring Unavailable Dr. Ja Cooley Primary Care Provider Dr. Ja Cooley Referring Provider Dr. Vick Santo Attending Provider Catalino ERNANDEZ, DEPARTMENT CHAIRPERSONCamdenC Christel Attending Provider Dr. Vick Santo Referring Provider Dr. Vick Santo Other Provider Dr. Sofía Luu Attending Provider [phone] Dr. Ja Cooley Primary Care Provider Dr. Vick Santo Attending Provider Dr. Vick Santo Referring Provider Dr. Ja Cooley Referring Provider Dr. Ja Cooley Primary Care Provider Dr. Vick Santo Attending Provider Dr. Ja Cooley Primary Care Provider Dr. Ja Cooley Referring Provider Dr. Vick Santo Attending Provider Dr. Ja Cooley Primary Care Provider Dr. Ja Cooley Referring Provider Dr. Vick Santo Attending Provider Dr. Ja Cooley MD Primary Care Provider Dr. Osman Farooq MD Attending Provider Dr. Osman Farooq MD Emergency Provider Colt GARZA, Dr. Kaur Attending Provider Dr. Natasha Gregory MD Referring Provider Ana GARZA, Dr. Jose Michaels Attending Provider Dr. Jose Perez MD, V Referring Provider Anastacia GARZA, Dr. Ja Deleon Attending Provider Anastacia GARZA, Dr. Ja Deleon Referring Provider Dr. Estuardo Mccormack DO Attending Provider Easton MONTEJO, Dr. Marte Emergency Provider Chet GARZA, Dr. Hickman Attending Provider Dr. Ja Cooley MD Primary Care Provider Charles MONTEJO, Dr. Diaz Emergency Provider Charles MONTEJO, Dr. Diaz Attending Provider Anastacia GARZA, Dr. Ja Deleon Primary Care Provider Colt GARZA, Dr. Kaur Attending Provider Chet GARZA, Dr. Hickman Referring Provider Chet GARZA, Dr. Hickman Referring Provider COLT GARZA, NATASHA Castro Primary Care Unavailable ANASTACIA GARZA, JA Attending Unavailable COLT GARZA, NATASHA Castro Primary Care Unavailable ANASTACIA GARZA, JA Attending Unavailable Anastacia GARZA, Dr. Ja Deleon Primary Care Provider Anastacia GARZA, Dr. Ja Deleon Referring Provider Dr. Ja Cooley MD Attending Provider Dr. Jose Perez MD, V Attending Provider Dr. Jose Perez MD, V Referring Provider Dr. Vick Santo MD Referring Provider Surya Dumont MD Referring Provider Surya Dumont MD Emergency Provider Ja Cooley MD Primary Care Provider JA COOLEY Primary Care Unavailable Chetan POWELL Attending Unavailable Dr. Ja Cooley MD Primary Care Provider Anastacia GARZA, Dr. Ja Deleon Attending Provider Anastacia GARZA, Dr. Ja Deleon Referring Provider Chet GARZA, Dr. Hickman Attending Provider Surya Dumont MD Attending Provider Chet GARZA, Dr. Hickman Referring Provider Iván GARZA, Dr. Matson Emergency Provider Chet GARZA, Dr. Hickman Referring Provider [phone] Iván GARZA, Dr. Matson Attending Provider Anastacia GARZA, Dr. Ja Deleon Primary Care Provider Anastacia GARZA, Dr. Ja Deleon Referring Provider [phone] Anastacia GARZA, Dr. Ja Deleon Attending Provider [phone] Colt GARZA, Dr. Kaur Referring Provider Anastacia GARZA, Dr. Ja Deleon Primary Care Provider Anastacia GARZA, Dr. Ja Deleon Referring Provider Chet GARZA, Dr. Hickman Attending Provider de Eric DO, Dr. Guardado Admit Provider Unavail able de Eric DO, Dr. Guardado Attending Provider Unav ailable de Eric DO, Dr. Guardado Other Provider Unavail able Oracio GARZA, Dr. Daphnie Ryder Attending Provider Oracio GARZA, Dr. Daphnie Ryder Other Provider [phone] Sally GARZA, Dr. Li Attending Provider Renu GARZA, Dr. Gilbert Attending Provider Dr. Maty Dial DO Emergency Provider Anastacia GARZA, Dr. Ja Deleon Primary Care Provider Dr. Joe Soto DO Emergency Provider [phone] Dr. Maty Dial DO Attending Provider Anastacia GARZA, Dr. Ja Deleon Primary Care Provider Colt GARZA, Dr. Kaur Attending Provider Shital GARZA, Dr. Elias Attending Provider Christel Dent Attending Provider [phone] Anastacia GARZA, Dr. Ja Deleon Primary Care Provider Ana GARZA, Dr. Jose Michaels Attending Provider [phone] Dr. Geo Garza DO Referring Provider Unav julissa Deras MD, Dr. Cotto Emergency Provider Schinner, Ja E Primary Care Unavailable Sibilia, Jose V Attending Unavailable Schinner, Ja E Primary Care Unavailable Reodica, Surya Referring Unavailable Reodica, Surya Attending Unavailable Dano Minor Attending Unavailable Schinner, Ja E Primary Care Unavailable Schinner, Ja E Primary Care Unavailable Maty Dial Attending Unavailable Vick Santo Attending Unavailable Schinner, Ja E Primary Care Unavailable Schinner, Ja E Primary Care Unavailable Estuardo Mccormack Attending Unavailable Schinner, Ja E Primary Care Unavailable Joe Soto Attending Unavailable Geo Garza Admitting Unavailable Oracio, Daphnie Britni Attending Unavailable Geo Garza Consulting Unavailable Anastacia, Ja E Primary Care Unavailable Laiam, Daphnie Britni Consulting Unavailable Schinner, Ja E Primary Care Unavailable Natasha Gregory Referring Unavailable Natasha Gregory Attending Unavailable Vick Santo Referring Unavailable Vick Santo Attending Unavailable Schinner, Ja E Primary Care Unavailable Schinner, Ja E Primary Care Unavailable Reodica, Surya Attending Unavailable Schinner, Ja E Primary Care Unavailable Natasha Gregory Attending Unavailable Natasha Gregory Referring Unavailable Schinner, Ja E Primary Care Unavailable Sibyamile Jsoe V Attending Unavailable Ana Jose V Referring Unavailable Vick Santo Referring Unavailable BelendoVick mix Attending Unavailable Schinner, Ja E Primary Care Unavailable Schinner, Ja E Primary Care Unavailable Natasha Gregory Attending Unavailable Schinner, Ja E Primary Care Unavailable Yadiel Deras Attending Unavailable Schinner, Ja E Primary Care Unavailable Osman Farooq Attending Unavailable Schinner, Ja E Primary Care Unavailable Schinner Ja E Attending Unavailable Rejiinner, Ja E Primary Care Unavailable Ana, Jose V Referring Unavailable SibiliaJose V Attending Unavailable Schinner, Ja E Primary Care Unavailable Schinner, Ja E Attending Unavailable Schinner, Ja E Referring Unavailable Vick Santo Attending Unavailable Vick Santo Referring Unavailable Schinner, Ja E Primary Care Unavailable Schinner, Ja E Primary Care Unavailable Schinner, Ja E Attending Unavailable Schinner, Ja E Referring Unavailable Schinner, Ja E Primary Care Unavailable Schinner, Ja E Referring Unavailable Curt Isaacs Attending Unavailable Schinner, Ja E Primary Care Unavailable Curt Isaacs Attending Unavailable Schinner, Ja E Primary Care Unavailable Christel Bae NP Attending Unavailable Schinner, Ja E Referring Unavailable BaddoVick mix Attending Unavailable Schinner, Ja E Primary Care Unavailable Schinner, Ja E Referring Unavailable Schinner, Ja E Primary Care Unavailable Vladimir Sears Attending Unavailable Geo Garza Admitting Unavailable Geo Garza Attending Unavailable Anastacia, Ja E Primary Care Unavailable Geo Garza Consulting Unavailable Daphnie Narayanan Attending Unavailable Daphnie Narayanan Consulting Unavailable Geo Garza Referring Unavailable Guillermo Zavala Attending Unavailable Schinner, Ja E Primary Care Unavailable Vick Santo Attending Unavailable Schinner, Ja E Primary Care Unavailable Schinner, Ja E Referring Unavailable Schinner, Ja E Primary Care Unavailable Schinner, Ja E Referring Unavailable Vick Santo Attending Unavailable Vick Santo Attending Unavailable Schinner, Ja E Primary Care Unavailable Schmaureenner, Aj E Referring Unavailable Vick Santo Attending Unavailable Schinner, Aj E Referring Unavailable Schinner, Ja E Primary Care Unavailable Schinner, Ja E Referring Unavailable Schinner, Ja E Attending Unavailable Schinner, Ja E Primary Care Unavailable Schinner, Ja E Primary Care Unavailable Imer Gee Attending Unavailable Imer Gee Referring Unavailable Schinner, Ja E Primary Care Unavailable Schinner, Ja E Referring Unavailable Schinner, Ja E Attending Unavailable Schinner, Ja E Primary Care Unavailable Schinner, Ja E Referring Unavailable Schinner, Ja E Attending Unavailable Allergies Allergy Classification Reported Allergen(s) Allergy Type Date of Onset Reaction(s) Facility DOPamine Antagonists (3 sources) Metoclopramide Drug Allergy 03-01-20 18 Anxiety [facility] Unclassified (3 sources) Seasonal allergy Propensity to adverse reactions to substance 05-05-20 [facility] Metoclopramide; Translations: [METOCLOPRAMIDE HCL] Drug Allergy 10-05-20 [facility] (20 sources) Metoclopramide; Translations: [METOCLOPRAMIDE] Drug Allergy 08-25-20 Mental Status Change, Other [facility] Work Phone: Comment on above: anxiety (1 source) Metoclopramide Drug Allergy 06-27-20 [facility] Repository Medications Current Medications Medication Drug Class(es) Dates Sig (Normalized) Sig (Original) [id number] 200 actuat albuterol 0.09 mg/actuat metered dose inhaler (20 sources) beta2-Adrenergic Agonist Start: 06-08-2025 Albuterol Sulfate 90 mcg/actuation HFA aerosol inhaler Active 2 NMA INHALATION EVERY 6 HOURS as needed for shortness of breath or wheezing June 08, 2025 12:00am Start: 09-06-2019 albuterol 90 m cg/actuation inhaler as needed . 0 09/06/2019 Active [...] oral tablet (20 sources) alpha-Adrenergic Aravind Start: 04-12-20 take 1 tablet by mouth once daily at mealtime Alfuzosin 10 mg tablet extended release 24 hr Active 10 mg PO DAILY April 12, 2023 12:00am urinary retention administer after the same meal each day aspirin 81 mg delayed release oral tablet (20 sources) Platelet Aggregation Inhibitor, Nonsteroidal Anti-inflammatory Drug Start: 06-08-20 take 1 tablet by mouth at bedtime Aspirin (Adult Aspirin Regimen) 81 mg tablet,delayed release (DR/EC) Active 81 mg PO AT BEDTIME June 08, 2025 12:00am heart health Start: 06-07-2013 End: 06-27-2024 Aspirin (Adult Low Dose Aspi rin) 81 mg tablet,delayed release (DR/EC) Discontinued 81 [...] once daily. Take 81 mg by mouth. budesonide 0.5 mg/ml inhalation suspension (8 sources) Corticosteroid Start: 2024 take 1 mg by inhalation every six hours Budesonide (Pulmicort) 1 mg/2 mL suspension for nebulization Active 1 mg INHALATION EVERY 6 HOURS June 08, 2025 12:00am SOB calcium chloride 0.0014 meq/ml / potassium chloride 0.004 meq/ml / sodium chloride 0.103 meq/ml / sodium lactate 0.028 meq/ml injectable solution (1 source) Start: 2020 lactated ringers infusion cholecalciferol 0.025 mg oral capsule (20 sources) Vitamin D Start: 2022 take 1 capsule by mouth once daily Cholecalciferol (Vitamin D3) 25 mcg (1,000 unit) capsule Active 4000 U PO DAILY April 12, 2023 10:21am supplement Start: 04-12-2023 take 1 capsule by mo [facility] once daily Cholecalciferol (Vitamin D3) 25 mcg [...] AT BEDTIME 90 March 31, 2025 9:06am nerve pain Start: 06-17-2024 End: 12-11-2024 take 1 capsule [...] mg PO DAILY April 11, 2023 12:00am urine flow Start: 10-07-2022 finasteride (P ROSCAR) 5 mg tablet 30 actuat fluticasone furoate 0.1 mg/actuat / umeclidinium 0.0625 mg/actuat / vilanterol 0.025 mg/actuat dry powder inhaler (14 sources) Anticholinergic, Corticosteroid, beta2-Adrenergic Agonist take 1 puff(s) by inhalation once daily daxfsghaejc-ymkwgcxuf-ywbhxqjn (Trelegy Ellipta) 100-62.5-25 mcg DsDv Inhale 1 puff daily . 0 Active Fluticasone-Umec lidin-Vilanter (20 sources) Sta rt: Zfgoxkqackz-Vhmlfekia-Jtrimm er (Trelegy Ellipta) 200-62.5-25 mcg blister with device Active 1 INH INHALATION DAILY April 12, 2022 9:33am Start: 04-12-2022 Fluticasone-Um eclidin-Vilanter (Trelegy Ellipta) 200-62.5-25 mcg blister with device Active 1 NMA INHALATION DAILY April 12, 2022 12:00am SOB Start: 04-12-2022 Fluticasone-Um eclidin-Vilanter (Trelegy Ellipta) 200-62.5-25 [...] subc utaneously. Inject 88 Units subc utaneously. Insulin Glargine U-300 Conc (Toujeo Max U-300 Solostar) 300 unit/mL (3 mL) insulin pen (7 sources) Start: 06-27-2024 Insulin Glargine U-300 Conc (Toujeo Max U-300 Solostar) 300 unit/mL (3 mL) insulin pen Active 54 U SC DAILY June 27, 2024 3:16pm diabetes 3 ml insulin lispro 100 unt/ml pen injector (7 sources) Insulin Analog Start: 06-12-2025 Insulin Lispro (Humalog Kwikpen Insulin) 100 unit/mL insulin pen Active 0 SC June 12, 2025 12:00am Please contact the information source for Protocol details. Start: 05-19-2021 insulin lispro (HUMALOG) injection vial 0-28 Units labetalol hydrochloride 5 mg/ml injectable solution (1 source) beta-Adrenergic Aravind Start: 05-19-2021 labetalol (NORMODYNE;TRANDATE) injection 5 mg 10 ml lidocaine hydrochloride 10 mg/ml injection (1 source) Antiarrhythmic, Amide Local Anesthetic Start: 05-19-2021 End: 05-19-2021 lidocaine PF 1 % injection 1 mL 1 ml meperidine hydrochloride 25 mg/ml cartridge (1 source) Opioid Agonist Start: 05-19-2021 meperidine (DEMEROL) injection 12.5 mg 24 hr metFORMIN hydrochloride 750 mg extended release oral tablet (20 sources) Biguanide Start: 04-12-2023 take 1 tablet by mouth every twenty-four hours at bedtime Metformin 750 mg tablet extended release 24 hr Active 750 mg PO AT BEDTIME April 12, 2023 10:21am diabetes Start: 04-06-2018 End: 04-12-2023 Metformin 750 mg [...] release (DR/EC) Active 40 mg PO DAILY May 24th, 2022 12:00am acid reflux Comment on above: Take 40 mg by mouth once daily. pravastatin sodium 80 mg oral tablet (20 sources) HMG-CoA Reductase Inhibitor Start: 06-07-2013 take 1 tablet by mouth once daily Pravastatin 80 mg tablet Active 80 mg PO daily April 06, 2018 12:00am cholesterol Comment on above: Take 80 mg by mouth once daily. 1 ml promethazine hydrochloride 25 mg/ml injection (1 source) Phenothiazine Start: 05-19-2021 End: 05-19-2021 promethazine (PHENERGAN) injection 6.25 mg 24 hr propranolol hydrochloride 60 mg extended release oral capsule (20 sources) beta-Adrenergic Aravind Start: 06-08-2025 take 1 capsule by mouth every twenty-four hours at bedtime Propranolol 60 mg capsule,extended release 24 hr Active 60 mg PO AT BEDTIME June 08, 2025 12:00am blood pressure Start: 04-11-2023 End: 05-10-2023 take 1 capsule by mouth every twenty-four hours at bedtime Propranolol 60 mg capsule,extended release 24 hr Discontinued 60 mg PO AT BEDTIME April 11, 2023 12:00am May 10, 2023 9:10pm Start: 04-11-2023 End: 06-08-2025 take 1 capsule by mouth once daily Propranolol 60 mg capsule,extended release 24 hr Discontinued 60 mg PO DAILY 90 March 31, 2025 9:07am June 08, 2025 11:48pm QUEtiapine 25 mg oral tablet (2 sources) Atypical Antipsychotic Start: 12-21-2021 End: 12-21-2022 take 1 tablet by mouth once daily QUEtiapine (SEROQUEL) 25 MG tablet Take 1 (one) tablet (25 mg total) by mouth nightly . 90 tablet 3 12/21/2021 12/21/2022 Active rOPINIRole 1 mg oral tablet (20 sources) Nonergot Dopamine Agonist Start: 06-26-2025 take 1 tablet by mouth three times daily Ropinirole 1 mg tablet Active 1 mg PO THREE TIMES A DAY June 26, 2025 12:00am Start: 03-20-2025 End: 06-27-2025 take 1 tablet by mouth three times daily Ropinirole 2 mg tablet Discontinued 2 mg PO THREE TIMES A DAY 270 March 20, 2025 12:00am June 27, 2025 1:47pm parkinson Start: 02-06-2025 End: 02-13-2025 take 1 tablet [...] course of ropinirole 0.5 mg twice daily. sertraline 50 mg oral tablet (5 sources) Serotonin Reuptake Inhibitor Start: 07-03-2025 take 1 tablet by mouth once daily in the morning Sertraline 50 mg tablet Active 50 mg PO EVERY MORNING 30 4 July 03, 2025 12:00am Start: 10-23-2022 sertraline (ZO LOFT) 50 mg tablet 3 ml sodium chloride 9 mg/ml injection [...] by mouth 2 times daily 0 Active Completed/Discontinued Medications Medication Drug Class(es) Dates Sig (Normalized) Sig (Original) acetaminophen 500 mg oral tablet (1 source) Start: 05-19-2021 End: 05-19-2021 acetaminophen (TYLENOL) tablet 1,000 mg Start: 05-19-2021 End: 05-19-2021 acetaminophen (TYLENOL) tabl et 1,000 mg acetaminophen 325 mg / HYDROcodone bitartrate 5 mg oral tablet (20 sources) Opioid Agonist Start: 10-12-2024 End: 06-08-2025 take 1 tablet by mouth every six hours as needed for pain Hydrocodone-Acetaminophen 5-325 mg tablet Discontinued 1 {tbl} PO EVERY 6 HOURS NEEDED as needed for Pain 15 4 0 October 12, 2024 June 08, 2025 11:48pm Closed fracture of one rib of left side Fracture of one rib, left side, initial encounter for closed fracture Start: 02-05-2018 End: 05-05-2021 HYDROcodone-acetaminophen (N ORCO) 5-325 MG per tablet acetaminophen 325 mg / oxyCODONE hydrochloride 5 [...] oral tablet (20 sources) Penicillin-class Antibacterial Start: 06-09-2025 End: 06-24-2025 Amoxicillin-Pot Clavulanate 875-125 mg tablet Discontinued 1 {tbl} PO TWICE A DAY 10 June 09, 2025 12:00am June 24, 2025 2:41pm Start: 10-04-2017 End: 04-06-2018 take 1 tablet [...] 04, 2017 1:00am April 06, 2018 11:56am ascorbic acid 1000 mg oral capsule (19 sources) Vitamin C Start: 06-27-2024 End: 06-08-2025 take 1 g by mouth once daily Ascorbic Acid (Vitamin C) 1,000 mg capsule Discontinued 1 g PO DAILY June 27, 2024 12:00am June 08, 2025 11:48pm busPIRone hydrochloride 5 mg oral tablet (20 [...] Inhibitor, Aromatic Amino Acid Start: 08-14-2023 End: 06-29-2025 Carbidopa-Levodopa 25-100 mg tablet Discontinued 2 {tbl} [...] Comment on above: Take 1 capsule by [facility] once daily. EPINEPHrine 0.01 mg/ml / lidocaine [...] famotidine (PEPCID) tablet 2 0 mg fluticasone jeakiki-qlztlmoblhqu-klyxlittmy (TRELEGY ELLIPTA) 200-62.5-25 mcg powder inhaler (12 sources) take 1 puff(s) by inhalation once daily fluticasone syzrtrs-jqpoouvgmaxl-cqhgkbyuti (TRELEGY ELLIPTA) 200-62.5-25 mcg powder inhaler Inhale [...] sources) Anticholinergic Start: 04-06-2018 End: 04-11-2019 Ipratropium [place] 0.03 % spray,non-aerosol Discontinued 2 NMA INTRANASAL 2 to 3 times per day as needed April 06, 2018 12:00am April 11, 2019 11:44am Start: 04-06-2018 End: 04-11-2019 Ipratropium [place] Disconti nued 2 SPRAY INTRANASAL 2 to 3 times per day April 06, 2018 12:00am April 11, 2019 11:44am istradefylline 20 mg oral tablet (20 sources) Start: 11-23-2023 End: 06-27-2024 take 1 tablet by mouth once daily Istradefylline (Nourianz) 20 mg tablet Discontinued 20 mg PO DAILY 90 November 23, 2023 1:00am June 27, 2024 [...] Discontinued 15 mg PO AT BEDTIME 90 1 August 24, 2023 9:09am September 06, 2023 [...] tablet (1 source) Anti-epileptic Agent Start: End: take 0.5 tablet by mouth once daily [...] increasing the dose if tremors are controlled. sulfamethoxazole 800 mg / trimethoprim 160 mg oral tablet (4 sources) Dihydrofolate Reductase Inhibitor Antibacterial, Sulfonamide Antimicrobial Start: End: take 1 tablet by mouth once 1 [...] Discontinued 100 mg PO AT BEDTIME 90 1 October 16, 2023 5:13pm March 27, 2024 11:31am Start: 09-20-2023 End: 10-09-2023 take 1 tablet by mouth at bedtime Trazodone 50 mg tablet Discontinued 50 mg PO AT BEDTIME 30 3 September 20, 2023 1:40pm October 09, 2023 [...] above: by INJECTION(UNSPECI FIED PARENTERAL ROUTES) route. zinc gluconate 30 mg oral tablet (19 sources) Start: 024 End: 025 take 1 tablet by mouth once daily Zinc Gluconate 30 mg tablet Discontinued 30 mg PO DAILY June 27, 2024 12:00am June 08, 2025 11:48pm Problems Active Problems Problem Classification Problem Date Documented Da te Episodic/Chronic Anxiety disorders (20 sources) Anxiety; Translations: [Anxiety disorder, unspecified] Chronic Asthma (1 source) Moderate persistent asthma, uncomplicated; Translations: [Moderate persistent asthma, uncomplicated] Onset: 03-27-2025 Chronic Blindness and vision defects (20 sources) Diplopia; Translations: [Diplopia] 03-25-2024 Episodic Cardiac dysrhythmias (20 sources) Premature atrial contraction; Translations: [Atrial premature depolarization] Onset: 06-27-2025 Chronic Cardiac dysrhythmias (20 sources) Palpitations; Translations: [Palpitations] Onset: 06-27-2025 02-05-2022 Episodic Chronic obstructive pulmonary disease and [...] disturbance] 05-10-2023 Chronic Diabetes mellitus with complications (16 sources) Hypoglycemia due to type 2 diabetes [...] Essential hypertension; Translations: [Essential (primary) hypertension] Chronic Fluid and electrolyte disorders (17 sources) Dehydration; Translations: [Dehydration] Onset: 06-09-2025 06-08-2025 Episodic Fracture of lower limb (20 sources) Closed fracture of distal fibula ; Translations: [Other fracture of upper and lower end of right fibula, initial encounter for closed fracture] 02-11-2023 Episodic Joint disorders and dislocations; trauma-related (5 sources) 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; Translations: [Other articular cartilage disorders, right wrist] Onset: 03-22-2018 03-22-2018 Chronic Malaise and fatigue (20 sources) Other fatigue; Translations: [Other malaise and fatigue] Onset: 06-27-2025 08-07-2023 Episodic Mood disorders (2 sources) Depressive [...] [Repeated falls] 04-12-2022 Episodic Other eye disorders (20 sources) Abducens nerve palsy; Translations: [Sixth [abducent] nerve palsy, right eye] 03-25-2024 Episodic Other eye disorders (1 source) Sixth [abducent] nerve palsy, right eye; Translations: [Sixth or abducens nerve palsy] 03-25-2024 Episodic Other fractures (19 sources) Closed fracture of two ribs; Translations: [...] encounter] 02-11-2023 Episodic Other lower respiratory disease (19 sources) Cough; Translations: [Cough] 09-02-2024 Episodic Other [...] Translations: [Abnormality of gait] 04-11-2023 Episodic Other nervous system disorders (16 sources) H/O: brain disorder; Translations: [Personal history of other diseases of the nervous system and sense organs] 06-08-2025 Episodic Other nervous system disorders (1 source) Personal history of other diseases of the nervous system and sense organs; Translations: [Personal history of other diseases of the nervous system and sense organs] Onset: 06-09-2025 Episodic Other nutritional; endocrine; and metabolic disorders (20 sources) Obesity; Translations: [Obesity, unspecified] 04-11-2022 Chronic Other nutritional; endocrine; and metabolic disorders (20 sources) Body mass index 30+ - obesity; Translations: [Body mass index (BMI) 36.0-36.9, adult] 05-11-2025 Chronic Other nutritional; endocrine; and metabolic disorders (1 source) Obesity, unspecified; Translations: [Obesity, unspecified] Onset: 06-09-2025 Chronic Other upper respiratory infections (17 sources) Acute sinusitis; Translations: [Acute sinusitis, unspecified] Onset: 06-09-2025 06-08-2025 Episodic Parkinson`s disease (20 sources) Parkinson's disease; Translations: [Parkinson's disease] Onset: 03-18-2022 Chronic Parkinson`s disease (16 sources) Parkinson`s disease; [...] [Insomnia, unspecified] 02-05-2022 Episodic Residual codes; unclassified (12 sources) Altered mental status; Translations: [Altered mental status, unspecified] 05-11-2025 Episodic Screening and history of mental health and substance abuse codes (17 sources) H/O: dementia; Translations: [Personal history of other mental and behavioral disorders] Onset: 06-09-2025 06-08-2025 Episodic Skull and face fractures (4 sources) Open fracture of nasal bones; Translations: [Fracture of nasal bones, initial encounter for open fracture] Onset: 04-13-2025 04-13-2025 Episodic Spondylosis; intervertebral disc disorders; other back problems (20 sources) Low back pain; Translations: [Low back pain] 05-10-2023 Episodic Sprains and strains (20 sources) Strain of neck muscle; Translations: [Strain of muscle, fascia and tendon at neck level, initial encounter] Onset: 06-16-2025 02-14-2025 Episodic Superficial injury; contusion (20 sources) Abrasion of face; Translations: [Abrasion of other part of head, initial encounter] Onset: 06-18-2025 02-11-2023 Episodic Syncope (20 sources) Syncope; Translations: [Syncope and collapse] Onset: 06-09-2025 06-08-2025 Episodic Unclassified (1 source) OT EVAL Onset: [...] conditions (not mental disorders or infectious disease) (8 sources) Electrocardiogram abnormal; Translations: [Abnormal electrocardiogram [ECG] [EKG]] Onset: 1 Episodic Results Test Name Value Interpretation Reference Range Facility Brain/Head without Contrasto n 07-07-2025 Brain/Head without Contrast Normal [facility] Emergency Department Summary on 07-07-2025 Emergency Department Summary Normal [facility] Knee 4 or More Viewson 07-07 Knee 4 or More Views Normal [facility] Spine Cervical without Contr ason 07-07-2025 Spine Cervical without Contras Normal [facility] Bilirubin Test strip Ql (U)O rdered By: Ja Cooley on 07-05-2025 Bilirubin Ql (U) Negative Negative [facility] Ketones Test strip Ql (U)Ord ered By: Ja Cooley on 07-05-2025 Ketones Ql (U) 5 mg/dl High Negative [facility] Microscopic analysis of urin e for red blood cells (RBC)Ordered By: Ja Cooley on 07-05-2025 Microscopic analysis of urine for red blood cells (RBC) 0 SEEN /hpf 0-5 [facility] Mucus LM Ql (Urine sed)Order ed By: Ja Cooley on 07-05-2025 Mucus Ql (Urine sed) 0 SEEN /hpf [facility] Nitrite Test strip Ql (U)Ord ered By: Ja Cooley on 07-05-2025 Nitrite Ql (U) Negative Negative [facility] Protein Test strip Ql (U)Ord ered By: Ja Cooley on 07-05-2025 Protein Ql (U) 15 mg/dl High Negative [facility] Squamous epithelial cells de tection in urine sediment by light microscopyOrdered By: Ja Cooley on 07-05-2025 Epithelial cells.squamous LM Ql (Urine sed) 0 SEEN /hpf 0-5 [facility] Urine clarityOrdered By: Kwabena Cooley on 07-05-2025 Clarity (U) Clear Clear [facility] Urine color determinationOrd ered By: Ja Cooley on 07-05-2025 Color (U) Yellow Yellow [facility] Urine glucose detectionOrder ed By: Ja Cooley on 07-05-2025 Glucose Ql (U) Normal mg/dl Normal [facility] Urine leukocyte esterase det ection by dipstickOrdered By: Ja Cooley on 07-05-2025 Leukocyte esterase Test strip Ql (U) Negative Negative [facility] Urine pHOrdered By: Ja mracos on 07-05-2025 pH (U) 7.0 [pH] 5.0 - 8.0 [facility] Urine sediment bacteria coun t by microscopy (number/high power field)Ordered By: Ja Cooley on 07-05-2025 Bacteria LM.HPF (Urine sed) [#/Area] 0 /[HPF] None Seen [facility] Urine specific gravity measu rementOrdered By: Ja Cooley on 07-05-2025 Specific gravity (U) [Rel density] 1.010 1.002-1.030 [facility] Urine urobilinogen measureme ntOrdered By: Ja Cooley on 07-05-2025 Urobilinogen Ql (U) 4 mg/dl High Normal [facility] White blood cell countOrdere d By: Ja Cooley on 07-05-2025 White blood cell count 0 SEEN /hpf 0-5 [facility] Cardiology Visit Reporton Cardiology Visit Report Normal [facility] Neurology Visit Reporton Neurology Visit Report Normal [facility] Surgery Visit Reporton 06-24 Surgery Visit Report Normal [facility] Brain/Head without Contrasto n 06-19-2025 Brain/Head without Contrast Normal [facility] Emergency Department Summary on 06-19-2025 Emergency Department Summary Normal [facility] 12 Lead EKGon 06-12-2025 12 Lead EKG Normal [facility] Absolute lymphocyte countOrd ered By: Maty Dial on 06-12-2025 Lymphocytes Auto (Unsp spec) [#/Vol] 3.14 10*3/uL 0.83-4.51 [facility] Absolute neutrophil countOrd ered By: Maty Dial on 06-12-2025 Neutrophils (Bld) [#/Vol] 5.2 10*3/uL 2.0-7.7 [facility] Anion gap in Serum or Plasma Ordered By: Maty Dial on 06-12-2025 Anion gap [Moles/Vol] 10 mmol/L 5-15 [facility] Automated lymphocyte count a s percentage of total leukocytesOrdered By: Maty Dial on 06-12-2025 Lymphocytes/100 WBC Auto (Unsp spec) 32.8 % 19-41 [facility] BUN/creatinine ratioOrdered By: Maty Dial on 06-12-2025 Urea nitrogen/Creatinine [Mass ratio] 25.6 mg/mg High - [facility] Basic Metabolic Profile (BMP )on 06-12-2025 BUN/CRE 25.6 RATIO High - [facility] Comment on above: Performed By: #### L 500.2500, L100.0100 ####[facility] [address] [place], [address] Calcium [Mass/Vol] 9.1 mg/dL Normal 7.6-11.0 [facility] Comment on above: Performed By: #### L 500.2500, L100.0100 ####[facility] [address] [place], [address] Chloride [Moles/Vol] 102 mmol/L Normal 98-108 [facility] Comment on above: Performed By: #### L 500.2500, L100.0100 ####[facility] [address] [place], [address] CO2 [Moles/Vol] 26.6 mmol/L Normal 21.0-32.0 [facility] Comment on above: Performed By: #### L 500.2500, L100.0100 ####[facility] [address] [place], [address] Creatinine [Mass/Vol] 0.94 mg/dL Normal 0.70-1.20 [facility] Comment on above: Performed By: #### L 500.2500, L100.0100 ####[facility] [address] [place], [address] ECRCL 79.57 ml/min Normal 50-250 [facility] Comment on above: Performed By: #### L 500.2500, L100.0100 ####[facility] [address] [place], [address] GAP 10 Normal 5-15 [facility] Comment on above: Performed By: #### L 500.2500, L100.0100 ####[facility] [address] [place], [address] GFR/1.73 sq M.predicted among non-blacks MDRD (S/P/Bld) [Vol rate/Area] 82 mL/min/{1.73_m2} Normal >60 [facility] Comment on above: Result Comment: mL/m in/1.73m2 CKD-EPI Creatinine Equation (2020) Performed By: #### L 500.2500, L100.0100 ####[facility] [address] [place], [address] Glucose [Mass/Vol] 202 mg/dL High 70-99 [facility] Comment on above: Performed By: #### L 500.2500, L100.0100 ####[facility] [address] [place], [address] Potassium [Moles/Vol] 4.3 mmol/L Normal 3.3-5.1 [facility] Comment on above: Performed By: #### L 500.2500, L100.0100 ####[facility] [address] [place], [address] Sodium [Moles/Vol] 139 mmol/L Normal 133-145 [facility] Comment on above: Performed By: #### L 500.2500, L100.0100 ####[facility] [address] [place], [address] Urea nitrogen [Mass/Vol] 24 mg/dL High 4-19 [facility] Comment on above: Performed By: #### L 500.2500, L100.0100 ####[facility] [address] [place], [address] Basophil percentageOrdered B y: Maty Dial on 06-12-2025 Basophils/100 WBC (Bld) 0.6 % 0-1 [facility] Bedside Glucoseon 06-12-2025 FINGERSTICK GLU 186 mg/dL High 74-106 [facility] Comment on above: Result Comment: GARY REYES OF PATIENT CARE PER NURSING PROTOCOL Performed By: #### L 501.080 ####[facility] [address] [place], [address] Bilirubin Test strip Ql (U)O rdered By: Maty Dial on 06-12-2025 Bilirubin Ql (U) Negative Negative [facility] Brain/Head without Contrasto n 06-12-2025 Brain/Head without Contrast Normal [facility] CBC W/Diff, Automatedon 05-21 Absolute Lymph 3.14 X10 3/uL Normal 0.83-4.51 [facility] Comment on above: Performed By: #### L 500.2500, L100.0100 ####[facility] [address] [place], [address] Absolute Neut 5.2 X10 3/uL Normal 2.0-7.7 [facility] Comment on above: Performed By: #### L 500.2500, L100.0100 ####[facility] [address] [place], [address] Basophils/100 WBC (Bld) 0.6 % Normal 0-1 [facility] Comment on above: Performed By: #### L 500.2500, L100.0100 ####[facility] [address] [place], [address] Eosinophils/100 WBC (Bld) 1.9 % Normal 0-5 [facility] Comment on above: Performed By: #### L 500.2500, L100.0100 ####[facility] [address] [place], [address] Erythrocyte distribution width (RBC) [Ratio] 12.9 % Normal 11.6-14.6 [facility] Comment on above: Performed By: #### L 500.2500, L100.0100 ####[facility] [address] [place], [address] Hematocrit (Bld) [Volume fraction] 41.3 % Normal 40-54 [facility] Comment on above: Performed By: #### L 500.2500, L100.0100 ####[facility] [address] [place], [address] Hemoglobin (Bld) [Mass/Vol] 13.6 g/dL Normal 13.0-16.5 [facility] Comment on above: Performed By: #### L 500.2500, L100.0100 ####[facility] [address] [place], [address] IG% 0.600 Normal 0.0-0.9 [facility] Comment on above: Result Comment: IG% - Immature Granulocytes (promyelocytes, myelocytes andmetamyelocytes) > 1% indicates that a LEFT SHIFT is Present. Performed By: #### L 500.2500, L100.0100 ####[facility] [address] [place], [address] Lymphocytes/100 WBC (Bld) 32.8 % Normal 19-41 [facility] Comment on above: Performed By: #### L 500.2500, L100.0100 ####[facility] [address] [place], [address] MCH (RBC) [Entitic mass] 30.2 pg Normal 27.0-32.0 [facility] Comment on above: Performed By: #### L 500.2500, L100.0100 ####[facility] [address] [place], [address] MCHC (RBC) [Mass/Vol] 32.9 g/dL Normal 32-36 [facility] Comment on above: Performed By: #### L 500.2500, L100.0100 ####[facility] [address] [place], [address] MCV (RBC) [Entitic vol] 91.8 fL Normal 80-94 [facility] Comment on above: Performed By: #### L 500.2500, L100.0100 ####[facility] [address] [place], [address] Monocytes/100 WBC (Bld) 9.4 % Normal 0-10 [facility] Comment on above: Performed By: #### L 500.2500, L100.0100 ####[facility] [address] [place], [address] Neutrophils/100 WBC (Bld) 54.7 % Normal 47-70 [facility] Comment on above: Performed By: #### L 500.2500, L100.0100 ####[facility] [address] [place], [address] Nucleated RBC (Bld) [#/Vol] 0 10*3/uL Normal 0-5 [facility] Comment on above: Performed By: #### L 500.2500, L100.0100 ####[facility] [address] [place], [address] Platelet mean volume (Bld) [Entitic vol] 10.4 fL Normal 6.2-12.0 [facility] Comment on above: Performed By: #### L 500.2500, L100.0100 ####[facility] [address] [place], [address] Platelets (Bld) [#/Vol] 243 10*3/uL Normal 150-450 [facility] Comment on above: Performed By: #### L 500.2500, L100.0100 ####[facility] [address] [place], [address] RBC (Bld) [#/Vol] 4.50 10*6/uL Low 4.6-6.2 [facility] Comment on above: Performed By: #### L 500.2500, L100.0100 ####[facility] [address] [place], [address] RDW SD 42.7 fl Normal 35.1-43.9 [facility] Comment on above: Performed By: #### L 500.2500, L100.0100 ####[facility] [address] [place], [address] WBC (Bld) [#/Vol] 9.6 10*3/uL Normal 4.4-11.0 [facility] Comment on above: Performed By: #### L 500.2500, L100.0100 ####[facility] [address] [place], [address] Carbon dioxide, total [Moles /volume] in Central venous bloodOrdered By: Maty Dial on 06-12-2025 CO2 [Moles/Vol] 26.6 mmol/L 21.0-32.0 [facility] Chloride assayOrdered By: Ignacio Dial on 06-12-2025 Chloride [Moles/Vol] 102 mmol/L 98-108 [facility] Emergency Department Summary on 06-12-2025 Emergency Department Summary Normal [facility] Eosinophil percentageOrdered By: Maty Dial on 06-12-2025 Eosinophils/100 WBC (Bld) 1.9 % 0-5 [facility] Erythrocyte distribution wid th ratioOrdered By: Maty Dial on 06-12-2025 Erythrocyte distribution width (RBC) [Ratio] 12.9 % 11.6-14.6 [facility] Erythrocyte distribution wid th standard deviationOrdered By: Maty Dial on 06-12-2025 Erythrocyte distribution width (RBC) [Ratio] 42.7 fl 35.1-43.9 [facility] Glomerular filtration rate ( GFR) estimation/1.73 sq m using serum, plasma, or whole bOrdered By: Maty Dial on 06-12-2025 GFR/1.73 sq M.predicted among non-blacks MDRD (S/P/Bld) [Vol rate/Area] 82 mL/min/{1.73_m2} >60 [facility] Comment on above: mL/min/1.73m2 CKD-EP I Creatinine Equation (2020) Glucose measurement at bedsi deOrdered By: Maty Dial on 06-12-2025 Glucose [Mass/Vol] 186 mg/dL High 74-106 [facility] Comment on above: MANAGEMENT OF PATIEN T CARE PER NURSING PROTOCOL Hematocrit Auto (Bld) [Volum e fraction]Ordered By: Maty Dial on 06-12-2025 Hematocrit (Bld) [Volume fraction] 41.3 % 40-54 [facility] Hemoglobin measurementOrdere d By: Maty Dial on 06-12-2025 Hemoglobin (Bld) [Mass/Vol] 13.6 g/dL 13.0-16.5 [facility] Immature granulocytes/100 WB C Auto (Bld)Ordered By: Maty Dial on 06-12-2025 Immature granulocytes/100 WBC (Bld) 0.600 % 0.0-0.9 [facility] Comment on above: IG% - Immature Granu locytes (promyelocytes, myelocytes and metamyelocytes) > 1% indicates that a LEFT SHIFT is Present. Ketones Test strip Ql (U)Ord ered By: Maty Dial on 06-12-2025 Ketones Ql (U) 15 mg/dl High Negative [facility] MCV (mean corpuscular volume ) determinationOrdered By: Maty Dial on 06-12-2025 MCV (RBC) [Entitic vol] 91.8 fL 80-94 [facility] Mean corpuscular hemoglobin (MCH) determinationOrdered By: Maty Dial on 06-12-2025 MCH (RBC) [Entitic mass] 30.2 pg 27.0-32.0 [facility] Mean corpuscular hemoglobin concentration (MCHC) determinationOrdered By: Maty Dial on 06-12-2025 MCHC (RBC) [Mass/Vol] 32.9 g/dL 32-36 [facility] Mean platelet volume determi nationOrdered By: Maty Dial on 06-12-2025 Platelet mean volume (Bld) [Entitic vol] 10.4 fL 6.2-12.0 [facility] Microscopic analysis of urin e for red blood cells (RBC)Ordered By: Maty Dial on 06-12-2025 Microscopic analysis of urine for red blood cells (RBC) 0 SEEN /hpf 0-5 [facility] Monocyte percentageOrdered B y: Maty Dial on 06-12-2025 Monocytes/100 WBC (Bld) 9.4 % 0-10 [facility] Mucus LM Ql (Urine sed)Order ed By: Maty Dial on 06-12-2025 Mucus Ql (Urine sed) 0 SEEN /hpf [facility] Neutrophil percentageOrdered By: Maty Dial on 06-12-2025 Neutrophils/100 WBC (Bld) 54.7 % 47-70 [facility] Nitrite Test strip Ql (U)Ord ered By: Maty Dial on 06-12-2025 Nitrite Ql (U) Negative Negative [facility] Nucleated red blood cell per centageOrdered By: Maty Dial on 06-12-2025 Nucleated RBC/100 WBC (Bld) [Ratio] 0 % 0-5 [facility] Platelet countOrdered By: Ignacio Dial on 06-12-2025 Platelets (Bld) [#/Vol] 243 10*3/uL 150-450 [facility] Potassium measurement (mass/ volume)Ordered By: Maty Dial on 06-12-2025 Potassium (Unsp spec) [Mass/Vol] 4.3 mmol/L 3.3-5.1 [facility] Protein Test strip Ql (U)Ord ered By: Maty Dial on 06-12-2025 Protein Ql (U) 15 mg/dl High Negative [facility] RBC Auto (Bld) [#/Vol]Ordere d By: Maty Dial on 06-12-2025 RBC (Bld) [#/Vol] 4.50 10*6/uL Low 4.6-6.2 [facility] Serum creatinine measurement (mass/volume)Ordered By: Maty Dial on 06-12-2025 Creatinine [Mass/Vol] 0.94 mg/dL 0.70-1.20 [facility] Serum glucose measurement (m ass/volume)Ordered By: Maty Dial on 06-12-2025 Glucose [Mass/Vol] 202 mg/dL High 70-99 [facility] Serum or plasma calcium walt urement (mass/volume)Ordered By: Maty Dial on 06-12-2025 Calcium [Mass/Vol] 9.1 mg/dL 7.6-11.0 [facility] Serum or plasma urea nitroge n measurement (mass/volume)Ordered By: Maty Dial on 06-12-2025 Urea nitrogen [Mass/Vol] 24 mg/dL High 4-19 [facility] Sodium levelOrdered By: Chidi Dial on 06-12-2025 Sodium [Moles/Vol] 139 mmol/L 133-145 [facility] Spine Cervical without Contr ason 06-12-2025 Spine Cervical without Contras Normal [facility] Squamous epithelial cells de tection in urine sediment by light microscopyOrdered By: Maty Dial on 06-12-2025 Epithelial cells.squamous LM Ql (Urine sed) 0-5 SEEN /hpf 0-5 [facility] Urinalysis, Completeon 06-12 WBC 0-5 SEEN Normal 0-5 [facility] Comment on above: Order Comment: CLEAN CATCH Performed By: #### L 400.0001 ####[facility] [address] [place], [place], [id number] EPI,SQUAMOUS 0-5 SEEN Normal 0-5 [facility] Comment on above: Order Comment: CLEAN CATCH Performed By: #### L 400.0001 ####[facility] [address] [place], [address] BACTERIA 0 SEEN Normal None Seen [facility] Comment on above: Order Comment: CLEAN CATCH Performed By: #### L 400.0001 ####[facility] [address] [place], [address] Mucus Ql (Urine sed) 0 SEEN Normal [facility] Comment on above: Order Comment: CLEAN CATCH Performed By: #### L 400.0001 ####[facility] [address] [place], [address] RBC 0 SEEN Normal 0-5 [facility] Comment on above: Order Comment: CLEAN CATCH Performed By: #### L 400.0001 ####[facility] [address] [place], [place], [address] Urine clarityOrdered By: Michelle Dial on 06-12-2025 Clarity (U) Clear Clear [facility] Urine color determinationOrd ered By: Maty Dial on 06-12-2025 Color (U) Yellow Yellow [facility] Urine glucose detectionOrder ed By: Maty Dial on 06-12-2025 Glucose Ql (U) Normal mg/dl Normal [facility] Urine leukocyte esterase det ection by dipstickOrdered By: Maty Dial on 06-12-2025 Leukocyte esterase Test strip Ql (U) 25 /ul High Negative [facility] Urine pHOrdered By: Maty rolle on 06-12-2025 pH (U) 6.0 [pH] 5.0 - 8.0 [facility] Urine sediment bacteria coun t by microscopy (number/high power field)Ordered By: Maty Dial on 06-12-2025 Bacteria LM.HPF (Urine sed) [#/Area] 0 /[HPF] None Seen [facility] Urine specific gravity measu rementOrdered By: Maty Dial on 06-12-2025 Specific gravity (U) [Rel density] 1.025 1.002-1.030 [facility] Urine urobilinogen measureme ntOrdered By: Maty Dial on 06-12-2025 Urobilinogen Ql (U) Normal mg/dl Normal [facility] White blood cell (WBC) count Ordered By: Maty Dial on 06-12-2025 WBC (Bld) [#/Vol] 9.6 10*3/uL 4.4-11.0 [facility] White blood cell countOrdere d By: Maty Dial on 06-12-2025 White blood cell count 0-5 SEEN /hpf 0-5 [facility] Absolute lymphocyte countOrd ered By: Geo Reyes on 06-09-2025 Lymphocytes Auto (Unsp spec) [#/Vol] 3.83 10*3/uL 0.83-4.51 [facility] Absolute neutrophil countOrd ered By: Geo Reyes on 06-09-2025 Neutrophils (Bld) [#/Vol] 4.2 10*3/uL 2.0-7.7 [facility] Anion gap in Serum or Plasma Ordered By: Geo Reyes on 06-09-2025 Anion gap [Moles/Vol] 10 mmol/L 5-15 [facility] Automated lymphocyte count a s percentage of total leukocytesOrdered By: Geo Reyes on 06-09-2025 Lymphocytes/100 WBC Auto (Unsp spec) 40.9 % - [facility] BUN/creatinine ratioOrdered By: Geo Reyes on 06-09-2025 Urea nitrogen/Creatinine [Mass ratio] 21.8 mg/mg High 10-20 [facility] Basophil percentageOrdered B y: Geo Reyes on 06-09-2025 Basophils/100 WBC (Bld) 0.9 % 0-1 [facility] Bedside Glucoseon 06-09-2025 FINGERSTICK GLU 157 mg/dL High 74-106 [facility] Comment on above: Result Comment: GARY GEMENT OF PATIENT CARE PER NURSING PROTOCOL Performed By: #### L 501.080 ####[facility] [address] [facility] [address] FINGERSTICK GLU 149 mg/dL High 74-106 [facility] Comment on above: Result Comment: GARY GEMENT OF PATIENT CARE PER NURSING PROTOCOL Performed By: #### L 501.080 ####[facility] [address] [facility] [address] FINGERSTICK GLU 81 mg/dL Normal 74-106 [facility] Comment on above: Result Comment: GARY GEMENT OF PATIENT CARE PER NURSING PROTOCOL Performed By: #### L 501.080 ####[facility] [address] [place], [address] Bilirubin, totalOrdered By: Geo Reyes on 06-09-2025 Bilirubin [Mass/Vol] 0.57 mg/dL 0.00-1.30 [facility] CBC W/Diff, Automatedon 07-2 -2024 Absolute Lymph 3.83 X10 3/uL Normal 0.83-4.51 [facility] Comment on above: Performed By: #### L 100.0100, L500.4050, L500.4100, L501.2300 ####[facility] [address] [place], [address] Absolute Neut 4.2 X10 3/uL Normal 2.0-7.7 [facility] Comment on above: Performed By: #### L 100.0100, L500.4050, L500.4100, L501.2300 ####[facility] [address] [place], [address] Basophils/100 WBC (Bld) 0.9 % Normal 0-1 [facility] Comment on above: Performed By: #### L 100.0100, L500.4050, L500.4100, L501.2300 ####[facility] [address] [place], [address] Eosinophils/100 WBC (Bld) 2.1 % Normal 0-5 [facility] Comment on above: Performed By: #### L 100.0100, L500.4050, L500.4100, L501.2300 ####[facility] [address] [place], [address] Erythrocyte distribution width (RBC) [Ratio] 12.9 % Normal 11.6-14.6 [facility] Comment on above: Performed By: #### L 100.0100, L500.4050, L500.4100, L501.2300 ####[facility] [address] [place], [address] Hematocrit (Bld) [Volume fraction] 39.9 % Low 40-54 [facility] Comment on above: Performed By: #### L 100.0100, L500.4050, L500.4100, L501.2300 ####[facility] [address] [place], [address] Hemoglobin (Bld) [Mass/Vol] 13.3 g/dL Normal 13.0-16.5 [facility] Comment on above: Performed By: #### L 100.0100, L500.4050, L500.4100, L501.2300 ####[facility] [address] [place], [address] IG% 0.300 Normal 0.0-0.9 [facility] Comment on above: Result Comment: IG% - Immature Granulocytes (promyelocytes, myelocytes andmetamyelocytes) > 1% indicates that a LEFT SHIFT is Present. Performed By: #### L 100.0100, L500.4050, L500.4100, L501.2300 ####[facility] [address] [place], [address] Lymphocytes/100 WBC (Bld) 40.9 % Normal 19-41 [facility] Comment on above: Performed By: #### L 100.0100, L500.4050, L500.4100, L501.2300 ####[facility] [address] [place], [address] MCH (RBC) [Entitic mass] 30.4 pg Normal 27.0-32.0 [facility] Comment on above: Performed By: #### L 100.0100, L500.4050, L500.4100, L501.2300 ####[facility] [address] [place], [address] MCHC (RBC) [Mass/Vol] 33.3 g/dL Normal 32-36 [facility] Comment on above: Performed By: #### L 100.0100, L500.4050, L500.4100, L501.2300 ####[facility] [address] [place], [address] MCV (RBC) [Entitic vol] 91.3 fL Normal 80-94 [facility] Comment on above: Performed By: #### L 100.0100, L500.4050, L500.4100, L501.2300 ####[facility] [address] [place], [address] Monocytes/100 WBC (Bld) 11.5 % High 0-10 [facility] Comment on above: Performed By: #### L 100.0100, L500.4050, L500.4100, L501.2300 ####[facility] [address] [place], [address] Neutrophils/100 WBC (Bld) 44.3 % Low 47-70 [facility] Comment on above: Performed By: #### L 100.0100, L500.4050, L500.4100, L501.2300 ####[facility] [address] [place], [address] Nucleated RBC (Bld) [#/Vol] 0 10*3/uL Normal 0-5 [facility] Comment on above: Performed By: #### L 100.0100, L500.4050, L500.4100, L501.2300 ####[facility] [address] [place], [address] Platelet mean volume (Bld) [Entitic vol] 10.8 fL Normal 6.2-12.0 [facility] Comment on above: Performed By: #### L 100.0100, L500.4050, L500.4100, L501.2300 ####[facility] [address] [place], [address] Platelets (Bld) [#/Vol] 243 10*3/uL Normal 150-450 [facility] Comment on above: Performed By: #### L 100.0100, L500.4050, L500.4100, L501.2300 ####[facility] [address] [place], [address] RBC (Bld) [#/Vol] 4.37 10*6/uL Low 4.6-6.2 [facility] Comment on above: Performed By: #### L 100.0100, L500.4050, L500.4100, L501.2300 ####[facility] [address] [place], [address] RDW SD 42.3 fl Normal 35.1-43.9 [facility] Comment on above: Performed By: #### L 100.0100, L500.4050, L500.4100, L501.2300 ####[facility] [address] [place], [address] WBC (Bld) [#/Vol] 9.4 10*3/uL Normal 4.4-11.0 [facility] Comment on above: Performed By: #### L 100.0100, L500.4050, L500.4100, L501.2300 ####[facility] [address] [place], [address] Calculated very low density lipoprotein (VLDL) cholesterol measurementOrdered By: Geo Reyes on 06-09-2025 Calculated very low density lipoprotein (VLDL) cholesterol measurement 15 mg/dL 5-40 [facility] Carbon dioxide, total [Moles /volume] in Central venous bloodOrdered By: Geo Reyes on 06-09-2025 CO2 [Moles/Vol] 23.9 mmol/L 21.0-32.0 [facility] Chloride assayOrdered By: Dov Reyes on 06-09-2025 Chloride [Moles/Vol] 108 mmol/L 98-108 [facility] Comprehensive Metabolic Prof ilon 06-09-2025 Albumin [Mass/Vol] 3.7 g/dL Normal 3.4-4.8 [facility] Comment on above: Performed By: #### L 100.0100, L500.4050, L500.4100, L501.2300 ####[facility] [address] [place], [address] Albumin/Globulin [Mass ratio] 1.6 {ratio} Normal 0.9-2.4 [facility] Comment on above: Performed By: #### L 100.0100, L500.4050, L500.4100, L501.2300 ####[facility] [address] [place], [address] ALK PHOS 76 U/L Normal 40-129 [facility] Comment on above: Performed By: #### L 100.0100, L500.4050, L500.4100, L501.2300 ####[facility] [address] [place], [address] ALT [Catalytic activity/Vol] U/L Normal <=46 [facility] Comment on above: Performed By: #### L 100.0100, L500.4050, L500.4100, L501.2300 ####[facility] [address] [place], [address] AST [Catalytic activity/Vol] 15 U/L Normal <=37 [facility] Comment on above: Performed By: #### L 100.0100, L500.4050, L500.4100, L501.2300 ####[facility] [address] [place], [address] Bilirubin [Mass/Vol] 0.57 mg/dL Normal 0.00-1.30 [facility] Comment on above: Performed By: #### L 100.0100, L500.4050, L500.4100, L501.2300 ####[facility] [address] [place], [address] BUN/CRE 21.8 RATIO High 10-20 [facility] Comment on above: Performed By: #### L 100.0100, L500.4050, L500.4100, L501.2300 ####[facility] [address] [place], [address] Calcium [Mass/Vol] 8.7 mg/dL Normal 7.6-11.0 [facility] Comment on above: Performed By: #### L 100.0100, L500.4050, L500.4100, L501.2300 ####[facility] [address] [place], [address] Chloride [Moles/Vol] 108 mmol/L Normal 98-108 [facility] Comment on above: Performed By: #### L 100.0100, L500.4050, L500.4100, L501.2300 ####[facility] [address] [place], [address] CO2 [Moles/Vol] 23.9 mmol/L Normal 21.0-32.0 [facility] Comment on above: Performed By: #### L 100.0100, L500.4050, L500.4100, L501.2300 ####[facility] [address] [place], [address] Creatinine [Mass/Vol] 0.77 mg/dL Normal 0.70-1.20 [facility] Comment on above: Performed By: #### L 100.0100, L500.4050, L500.4100, L501.2300 ####[facility] [address] [place], [address] ECRCL 92.13 ml/min Normal 50-250 [facility] Comment on above: Performed By: #### L 100.0100, L500.4050, L500.4100, L501.2300 ####[facility] [address] [place], [address] GAP 10 Normal 5-15 [facility] Comment on above: Performed By: #### L 100.0100, L500.4050, L500.4100, L501.2300 ####[facility] [address] [place], [address] GFR/1.73 sq M.predicted among non-blacks MDRD (S/P/Bld) [Vol rate/Area] 91 mL/min/{1.73_m2} Normal >60 [facility] Comment on above: Result Comment: mL/m in/1.73m2 CKD-EPI Creatinine Equation (2020) Performed By: #### L 100.0100, L500.4050, L500.4100, L501.2300 ####[facility] [address] [place], [address] Globulin (S) [Mass/Vol] 2.3 g/dL Normal 2.2-4.2 [facility] Comment on above: Performed By: #### L 100.0100, L500.4050, L500.4100, L501.2300 ####[facility] [address] [place], [address] Glucose [Mass/Vol] 67 mg/dL Low 70-99 [facility] Comment on above: Performed By: #### L 100.0100, L500.4050, L500.4100, L501.2300 ####[facility] [address] [place], [address] Potassium [Moles/Vol] 3.8 mmol/L Normal 3.3-5.1 [facility] Comment on above: Performed By: #### L 100.0100, L500.4050, L500.4100, L501.2300 ####[facility] [address] [place], [address] Sodium [Moles/Vol] 142 mmol/L Normal 133-145 [facility] Comment on above: Performed By: #### L 100.0100, L500.4050, L500.4100, L501.2300 ####[facility] [address] [place], [address] T PROT 5.9 g/dL Normal 5.9-8.4 [facility] Comment on above: Performed By: #### L 100.0100, L500.4050, L500.4100, L501.2300 ####[facility] [address] [place], [address] Urea nitrogen [Mass/Vol] 17 mg/dL Normal 4-19 [facility] Comment on above: Performed By: #### L 100.0100, L500.4050, L500.4100, L501.2300 ####[facility] [address] [place], [address] Discharge Instructionon 05-21 Discharge Instruction Normal [facility] Duplex ultrasound of carotid artery reportOrdered By: Guillermo Zavala on 06-09-2025 Study report [facility] [address] [place] [address] Carotid Duplex Ultrasound 06/09/25 0824 MR#: [id number] Acct: [id number] Name: LUIS ARMANDO GRIFFITH Rep #:[id number] : 1945 79 From: Guillermo Nicolas Attending Dr: Dr. Daphnie Narayanan MD Status: ADM SANDHYA Ordering Dr: Geo Garza DO Date: 06/08/25 Location: U Sex: M C Admitted: 06/08/25 Reason For Study Reason For Study: Syncope and Collapse Rt. Velocities/BP Lt. Velocities/BP Prox CCA 85/15 cm/sec. Prox CCA 88/11 cm/sec. Mid CCA 62/11 cm/sec. Mid CCA 92/13 cm/sec. Dist CCA 54/8 cm/sec. Dist CCA 93/8 cm/sec. Prox ICA 64/11 cm/sec. Prox ICA 68/19 cm/sec. Mid ICA 74/13 cm/sec. Mid ICA 81/25 cm/sec. Dist ICA 81/21 cm/sec. Dist ICA 72/17 cm/sec. Rt. ICA/CCA = 1.3. Lt. ICA/CCA = 0.9. Prox ECA 75/5 cm/sec. Prox ECA 74/13 cm/sec. Rt. Vert. 37/5 cm/sec. Lt. Vert. 39/9 cm/sec. Right Extracranial There is heterogeneous, irregular atherosclerotic plaque noted in the right common carotid artery. There is heterogeneous, irregular atherosclerotic plaque noted in the right internal carotid artery. There is intimal thickening but no significant atherosclerotic plaque noted in the right external carotid artery. Antegrade flow is noted in the right vertebral artery. Left Extracranial There is heterogeneous, irregular atherosclerotic plaque noted in the left common carotid artery. There is heterogeneous, irregular atherosclerotic plaque noted in the left internal carotid artery. There is intimal thickening but no significant atherosclerotic plaque noted in the left external carotid artery. Antegrade flow is noted in the left vertebral artery. Procedure Carotid Duplex 66601. This is a Carotid Duplex examination using B-mode, color flow and specral Doppler. Exam performed portable in patient room. VL/Carotid Duplex Ultrasound Interpretation Summary Mild (<50%) stenosis right extracranial internal carotid. Mild (<50%) stenosis left extracranial internal carotid. Patent and antegrade vertebrals bilaterally. Ordering Physician: Geo Garza Referring Physician: Ja Cooley Performed By: Thuy Dong, GISELLA, RVT 06/09/25 1107 Date _ Guillermo aZvala MD CC: Dr. Geo Garza DO; Dr. Ja Cooley MD; Dr. Daphnie Narayanan MD ~ Date Dictated: 06/09/25 0824 Date Transcribed: 06/09/25 110 Communications Department Chair: Signed [facility] Work Phone: Eosinophil percentageOrdered By: Geo Reyes on 06-09-2025 Eosinophils/100 WBC (Bld) 2.1 % 0-5 [facility] Erythrocyte distribution wid th ratioOrdered By: Geo Reyes on 06-09-2025 Erythrocyte distribution width (RBC) [Ratio] 12.9 % 11.6-14.6 [facility] Erythrocyte distribution wid th standard deviationOrdered By: Geo Reyes on 06-09-2025 Erythrocyte distribution width (RBC) [Ratio] 42.3 fl 35.1-43.9 [facility] Folate [Mass/volume] in Seru m or PlasmaOrdered By: Geo Reyes on 06-09-2025 Folate [Mass/Vol] 11.40 ng/mL 4.60-34.80 [facility] Folates,Serum (Folic Acid)on 06-09-2025 FOLATES,SERUM 11.40 ng/mL Normal 4.60-34.80 [facility] Comment on above: Order Comment: N Performed By: #### L 505.5000, L506.0200, L501.9520, L501.5200 ####[facility] [address], [place], [address] Glomerular filtration rate ( GFR) estimation/1.73 sq m using serum, plasma, or whole bOrdered By: Geo Reyes on 06-09-2025 GFR/1.73 sq M.predicted among non-blacks MDRD (S/P/Bld) [Vol rate/Area] 91 mL/min/{1.73_m2} >60 [facility] Comment on above: mL/min/1.73m2 CKD-EP I Creatinine Equation (2020) [facility] deOrdered By: Daphnie Narayanan on 06-09-2025 Glucose [Mass/Vol] 157 mg/dL High 74-106 [facility] Comment on above: MANAGEMENT OF PATIEN T CARE PER NURSING PROTOCOL Hematocrit Auto (Bld) [Volum e fraction]Ordered By: Geo Reyes on 06-09-2025 Hematocrit (Bld) [Volume fraction] 39.9 % Low 40-54 [facility] Hemoglobin measurementOrdere d By: Geo Reyes on 06-09-2025 Hemoglobin (Bld) [Mass/Vol] 13.3 g/dL 13.0-16.5 [facility] Immature granulocytes/100 WB C Auto (Bld)Ordered By: Geo Reyes on 06-09-2025 Immature granulocytes/100 WBC (Bld) 0.300 % 0.0-0.9 [facility] Comment on above: IG% - Immature Granu locytes (promyelocytes, myelocytes and metamyelocytes) > 1% indicates that a LEFT SHIFT is Present. L499.0043on 06-09-2025 Trop T High Sen 15 ng/L Normal <=22 [facility] Comment on above: Performed By: #### L 499.0043 ####[facility] [address] [place], [place], [address] LDL calc ser/plasOrdered By: Geo Reyes on 06-09-2025 Cholesterol in LDL [Mass/Vol] 47 mg/dL [facility] Comment on above: Euauoiicna=460-765 m g/dL & Higher Wtoy=982 mg/dL or greater Laboratory - Chemistry and C hemistry - challengeOrdered By: Geo Reyes on 06-09-2025 AST [Catalytic activity/Vol] 15 U/L <38 [facility] Lipid Profileon 06-09-2025 CHOL:HDL 2.24 Normal [facility] Comment on above: Performed By: #### L 100.0100, L500.4050, L500.4100, L501.2300 ####[facility] [address] [place], [place], [id number] Cholesterol [Mass/Vol] 113 mg/dL Normal <=200 [facility] Comment on above: Result Comment: Chol esterol level, Desirable <200 mg/dLBorderline high cholesterol 200-239 mg/dLHigh cholesterol >=240 mg/dLRecommendations of the DEEP Adult Treatment Panel for thefollowing risk-cutoff thresholds for the [place] Americanpulation. Performed By: #### L 100.0100, L500.4050, L500.4100, L501.2300 ####[facility] [address] [place], [address] Cholesterol in HDL [Mass/Vol] 50 mg/dL Normal [facility] Comment on above: Result Comment: Makayla onal Cholesterol Education Program (NCEP) guidelines:<40 mg/dL: Low HDL-cholesterol (major risk factor for CHD)>= 60 mg/dL: High HDL-cholesterol (negative risk factor forCHD)HDL-cholesterol is affected by a number of factors, e.g.smoking, exercise, hormones, sex and age. Performed By: #### L 100.0100, L500.4050, L500.4100, L501.2300 ####[facility] [address] [place], [address] Cholesterol in LDL [Mass/Vol] 47 mg/dL Normal [facility] Comment on above: Result Comment: Bord zajpuz=532-857 mg/dL Higher Pvbw=653 mg/dL or greater Performed By: #### L 100.0100, L500.4050, L500.4100, L501.2300 ####[facility] [address] [place], [address] Cholesterol in VLDL [Mass/Vol] 15 mg/dL Normal 5-40 [facility] Comment on above: Performed By: #### L 100.0100, L500.4050, L500.4100, L501.2300 ####[facility] [address] [place], [address] Triglyceride [Mass/Vol] 76 mg/dL Normal [facility] Comment on above: Result Comment: The drugs N-Acetylcysteine and Metamizole may falselydepress this assay.Normal range: <150 mg/dLBorderline High: 150-199 mg/dLHigh: 200-499 mg/dLVery High: >500 mg/dL Performed By: #### L 100.0100, L500.4050, L500.4100, L501.2300 ####[facility] [address] [place], [address] MCV (mean corpuscular volume ) determinationOrdered By: Geo Reyes on 06-09-2025 MCV (RBC) [Entitic vol] 91.3 fL 80-94 [facility] Mean corpuscular hemoglobin (MCH) determinationOrdered By: Geo Reyes on 06-09-2025 MCH (RBC) [Entitic mass] 30.4 pg 27.0-32.0 [facility] Mean corpuscular hemoglobin concentration (MCHC) determinationOrdered By: Geo Reyes on 06-09-2025 MCHC (RBC) [Mass/Vol] 33.3 g/dL 32-36 [facility] Mean platelet volume determi nationOrdered By: Geo Reyes on 06-09-2025 Platelet mean volume (Bld) [Entitic vol] 10.8 fL 6.2-12.0 [facility] Monocyte percentageOrdered B y: Geo Reyes on 06-09-2025 Monocytes/100 WBC (Bld) 11.5 % High 0-10 [facility] Neutrophil percentageOrdered By: Geo Reyes on 06-09-2025 Neutrophils/100 WBC (Bld) 44.3 % Low 47-70 [facility] Nucleated red blood cell per centageOrdered By: Geo Reyes on 06-09-2025 Nucleated RBC/100 WBC (Bld) [Ratio] 0 % 0-5 [facility] Phosphoruson 06-09-2025 Phosphate [Mass/Vol] 3.8 mg/dL Normal 2.7-4.5 [facility] Comment on above: Performed By: #### L 100.0100, L500.4050, L500.4100, L501.2300 ####[facility] [address] [place], [place], [id number] Platelet countOrdered By: Dov Reyes on 06-09-2025 Platelets (Bld) [#/Vol] 243 10*3/uL 150-450 [facility] Potassium measurement (mass/ volume)Ordered By: Geo Reyes on 06-09-2025 Potassium (Unsp spec) [Mass/Vol] 3.8 mmol/L 3.3-5.1 [facility] RBC Auto (Bld) [#/Vol]Ordere d By: Geo Reyes on 06-09-2025 RBC (Bld) [#/Vol] 4.37 10*6/uL Low 4.6-6.2 [facility] Screening total cholesterol/ high density lipoprotein (HDL) cholesterol ratioOrdered By: Geo Reyes on 06-09-2025 Cholesterol.total/Cholest gris in HDL [Mass ratio] 2.24 {ratio} [facility] Serum creatinine measurement (mass/volume)Ordered By: Geo Reyes on 06-09-2025 Creatinine [Mass/Vol] 0.77 mg/dL 0.70-1.20 [facility] Serum globulin measurementOr dered By: Geo Reyes on 06-09-2025 Globulin (S) [Mass/Vol] 2.3 g/dL 2.2-4.2 [facility] Serum glucose measurement (m ass/volume)Ordered By: Geo Reyes on 06-09-2025 Glucose [Mass/Vol] 67 mg/dL Low 70-99 [facility] Serum or plasma alanine max otransferase (ALT) measurementOrdered By: Geo Reyes on 06-09-2025 ALT [Catalytic activity/Vol] U/L <47 [facility] Serum or plasma albumin walt urement (mass/volume)Ordered By: Geo Reyes on 06-09-2025 Albumin [Mass/Vol] 3.7 g/dL 3.4-4.8 [facility] Serum or plasma albumin/glob ulin mass ratioOrdered By: Geo Reyes on 06-09-2025 Albumin/Globulin [Mass ratio] 1.6 {ratio} 0.9-2.4 [facility] Serum or plasma alkaline sarah sphatase measurementOrdered By: Geo Reyes on 06-09-2025 ALP [Catalytic activity/Vol] 76 U/L 40-129 [facility] Serum or plasma calcium walt urement (mass/volume)Ordered By: Geo Reyes on 06-09-2025 Calcium [Mass/Vol] 8.7 mg/dL 7.6-11.0 [facility] Serum or plasma cholesterol in HDL measurement (mass/volume)Ordered By: Geo Reyes on 06-09-2025 Cholesterol in HDL [Mass/Vol] 50 mg/dL >40 [facility] Comment on above: National Cholesterol Education Program (NCEP) guidelines:<40 mg/dL: Low HDL-cholesterol (major risk factor for CHD)>= 60 mg/dL: High HDL-cholesterol (negative risk factor for CHD)HDL-cholesterol is affected by a number of factors, e.g. smoking, exercise, hormones, sex and age. Serum or plasma cholesterol measurement (mass/volume)Ordered By: Geo Reyes on 06-09-2025 Cholesterol [Mass/Vol] 113 mg/dL <201 [facility] Comment on above: Cholesterol level, D esirable <200 mg/dLBorderline high cholesterol 200-239 mg/dLHigh cholesterol >=240 mg/dLRecommendations of the NCEP Adult Treatment Panel for the following risk-cutoff thresholds for the [place] population. Serum or plasma urea nitroge n measurement (mass/volume)Ordered By: Geo Reyes on 06-09-2025 Urea nitrogen [Mass/Vol] 17 mg/dL 4-19 [facility] Sodium levelOrdered By: Raman Reyes on 06-09-2025 Sodium [Moles/Vol] 142 mmol/L 133-145 [facility] Total proteinOrdered By: Rick Reyes on 06-09-2025 Protein [Mass/Vol] 5.9 g/dL 5.9-8.4 [facility] Triglycerides measurementOrd ered By: Geo Reyes on 06-09-2025 Triglyceride [Mass/Vol] 76 mg/dL <199 [facility] Comment on above: The drugs N-Acetylcy steine and Metamizole may falsely depress this assay. Normal range: <150 mg/dLBorderline High: 150-199 mg/dLHigh: 200-499 mg/dLVery High: >500 mg/dL Vitamin B12on 06-09-2025 Cobalamin (Vitamin B12) [Mass/Vol] 230 pg/mL Normal 180-914 [facility] Comment on above: Performed By: #### L 503.0106 ####[facility] [address] [place], [place], [address] White blood cell (WBC) count Ordered By: Geo Reyes on 06-09-2025 WBC (Bld) [#/Vol] 9.4 10*3/uL 4.4-11.0 [facility] 12 Lead EKGon 06-08-2025 12 Lead EKG Normal [facility] Absolute lymphocyte countOrd ered By: Remus Soto on 06-08-2025 Lymphocytes Auto (Unsp spec) [#/Vol] 3.30 10*3/uL 0.83-4.51 [facility] Absolute neutrophil countOrd ered By: Remus Ungdominguez on 06-08-2025 Neutrophils (Bld) [#/Vol] 4.8 10*3/uL 2.0-7.7 [facility] Alcohol, Blood (Medical)-Ser umon 06-08-2025 SERUM ETOH < 10.1 Normal <=10.0 [facility] Comment on above: Result Comment: This test is for medical purposes only. The legaldefinition of intoxication varies according to local law. Performed By: #### L 501.9100 ####[facility] [address] [place], [place], [id number] Amphetamine detection with 1 000 ng/mL as cutoffOrdered By: Geo Reyes on 06-08-2025 Amphetamines Screen method >1000 ng/mL Ql (U) Negative < 200 ng/mL [facility] Anion gap in Serum or Plasma Ordered By: Remus Soto on 06-08-2025 Anion gap [Moles/Vol] 12 mmol/L 5-15 [facility] Automated lymphocyte count a s percentage of total leukocytesOrdered By: Remus Ungdominguez on 06-08-2025 Lymphocytes/100 WBC Auto (Unsp spec) 36.0 % 19-41 [facility] BUN/creatinine ratioOrdered By: Remus Ungdominguez on 06-08-2025 Urea nitrogen/Creatinine [Mass ratio] 26.0 mg/mg High - [facility] Basic Metabolic Profile (BMP )on 06-08-2025 BUN/CRE 26.0 RATIO High 09-08 [facility] Comment on above: Order Comment: REDRA W. PREVIOUS SPECIMEN REJECTED DUE TOHEMOLYSIS. 06/08/251853 Bo Elias. Performed By: #### L 501.4021, L500.2500 ####[facility] [address] [place], [address] Calcium [Mass/Vol] 9.0 mg/dL Normal 7.6-11.0 [facility] Comment on above: Order Comment: REDRA W. PREVIOUS SPECIMEN REJECTED DUE TOHEMOLYSIS. 06/08/251853 Bo Elias. Performed By: #### L 501.4021, L500.2500 ####[facility] [address] [place], [address] Chloride [Moles/Vol] 103 mmol/L Normal 98-108 [facility] Comment on above: Order Comment: REDRA W. PREVIOUS SPECIMEN REJECTED DUE TOHEMOLYSIS. 06/08/251853 Bo Elias. Performed By: #### L 501.4021, L500.2500 ####[facility] [address] [place], [address] CO2 [Moles/Vol] 24.5 mmol/L Normal 21.0-32.0 [facility] Comment on above: Order Comment: REDRA W. PREVIOUS SPECIMEN REJECTED DUE TOHEMOLYSIS. 06/08/251853 Bo Elias. Performed By: #### L 501.4021, L500.2500 ####[facility] [address] [place], [address] Creatinine [Mass/Vol] 0.85 mg/dL Normal 0.70-1.20 [facility] Comment on above: Order Comment: REDRA W. PREVIOUS SPECIMEN REJECTED DUE TOHEMOLYSIS. 06/08/251853 Bo Elias. Performed By: #### L 501.4021, L500.2500 ####[facility] [address] [place], [address] ECRCL 87.49 ml/min Normal 50-250 [facility] Comment on above: Order Comment: REDRA W. PREVIOUS SPECIMEN REJECTED DUE TOHEMOLYSIS. 06/08/251853 Bo Elias. Performed By: #### L 501.4021, L500.2500 ####[facility] [address] [place], [address] GAP 12 Normal 5-15 [facility] Comment on above: Order Comment: REDRA W. PREVIOUS SPECIMEN REJECTED DUE TOHEMOLYSIS. 06/08/251853 Bo Elias. Performed By: #### L 501.4021, L500.2500 ####[facility] [address] [place], [address] GFR/1.73 sq M.predicted among non-blacks MDRD (S/P/Bld) [Vol rate/Area] 88 mL/min/{1.73_m2} Normal >60 [facility] Comment on above: Order Comment: REDRA W. PREVIOUS SPECIMEN REJECTED DUE TOHEMOLYSIS. 06/08/251853 Bo Elias. Result Comment: mL/m in/1.73m2 CKD-EPI Creatinine Equation (2020) Performed By: #### L 501.4021, L500.2500 ####[facility] [address] [place], [address] Glucose [Mass/Vol] 224 mg/dL High 70-99 [facility] Comment on above: Order Comment: REDRA W. PREVIOUS SPECIMEN REJECTED DUE TOHEMOLYSIS. 06/08/251853 Bo Elias. Performed By: #### L 501.4021, L500.2500 ####[facility] [address] [place], [address] Potassium [Moles/Vol] 4.0 mmol/L Normal 3.3-5.1 [facility] Comment on above: Order Comment: REDRA W. PREVIOUS SPECIMEN REJECTED DUE TOHEMOLYSIS. 06/08/251853 Bo Elias. Performed By: #### L 501.4021, L500.2500 ####[facility] [address] [place], [address] Sodium [Moles/Vol] 139 mmol/L Normal 133-145 [facility] Comment on above: Order Comment: REDRA W. PREVIOUS SPECIMEN REJECTED DUE TOHEMOLYSIS. 06/08/251853 Bo Elias. Performed By: #### L 501.4021, L500.2500 ####[facility] [address] [place], [address] Urea nitrogen [Mass/Vol] 22 mg/dL High - [facility] Comment on above: Order Comment: REDRA W. PREVIOUS SPECIMEN REJECTED DUE TOHEMOLYSIS. 06/08/251853 Bo Elias. Performed By: #### L 501.4021, L500.2500 ####[facility] [address] [place], [address] BUN Normal - [facility] Comment on above: Result Comment: This specimen has been REJECTED due to Laboratory criteria:Hemolyzed.DAFNE (ED) has been notified of need of recollection.06/08/251852 Bo Elias Performed By: #### L 500.2500, L100.0100 ####[facility] [address] [place], [address] BUN/CRE Normal - [facility] Comment on above: Result Comment: This specimen has been REJECTED due to Laboratory criteria:Hemolyzed.DAFNE (ED) has been notified of need of recollection.06/08/251852 Bo Elias Performed By: #### L 500.2500, L100.0100 ####[facility] [address] [place], [address] Calcium Normal 7.6-11.0 [facility] Comment on above: Result Comment: This specimen has been REJECTED due to Laboratory criteria:Hemolyzed.DAFNE (ED) has been notified of need of recollection.06/08/251852 Bo L White Performed By: #### L 500.2500, L100.0100 ####[facility] [address] [place], [address] CL Normal 98-108 [facility] Comment on above: Result Comment: This specimen has been REJECTED due to Laboratory criteria:Hemolyzed.DAFNE (ED) has been notified of need of recollection.06/08/251852 Bo L White Performed By: #### L 500.2500, L100.0100 ####[facility] [address] [place], [address] CO2 Normal 21.0-32.0 [facility] Comment on above: Result Comment: This specimen has been REJECTED due to Laboratory criteria:Hemolyzed.DAFNE (ED) has been notified of need of recollection.06/08/251852 Bo L White Performed By: #### L 500.2500, L100.0100 ####[facility] [address] [place], [address] CREAT,SERUM Normal 0.70-1.20 [facility] Comment on above: Result Comment: This specimen has been REJECTED due to Laboratory criteria:Hemolyzed.DAFNE (ED) has been notified of need of recollection.06/08/251852 Bo L White Performed By: #### L 500.2500, L100.0100 ####[facility] [address] [place], [address] eGFR Normal >60 [facility] Comment on above: Result Comment: This specimen has been REJECTED due to Laboratory criteria:Hemolyzed.DAFNE (ED) has been notified of need of recollection.06/08/251852 Bo L White Performed By: #### L 500.2500, L100.0100 ####[facility] [address] [place], [address] GAP Normal 5-15 [facility] Comment on above: Result Comment: This specimen has been REJECTED due to Laboratory criteria:Hemolyzed.DAFNE (ED) has been notified of need of recollection.06/08/251852 Bo L White Performed By: #### L 500.2500, L100.0100 ####[facility] [address] [place], [address] GLU Normal 70-99 [facility] Comment on above: Result Comment: This specimen has been REJECTED due to Laboratory criteria:Hemolyzed.DAFNE (ED) has been notified of need of recollection.06/08/251852 Bo L White Performed By: #### L 500.2500, L100.0100 ####[facility] [address] [place], [address] Potassium Normal 3.3-5.1 [facility] Comment on above: Result Comment: This specimen has been REJECTED due to Laboratory criteria:Hemolyzed.DAFNE (ED) has been notified of need of recollection.06/08/251852 Bo L White Performed By: #### L 500.2500, L100.0100 ####[facility] [address] [place], [address] Basic Metabolic Profile (BMP) Normal 133-145 [facility] Comment on above: Result Comment: This specimen has been REJECTED due to Laboratory criteria:Hemolyzed.DAFNE (ED) has been notified of need of recollection.06/08/251852 Bo L White Performed By: #### L 500.2500, L100.0100 ####[facility] [address] [place], [address] Basophil percentageOrdered B y: Remus Ungur on 06-08-2025 Basophils/100 WBC (Bld) 0.9 % 0-1 [facility] Bilirubin Test strip Ql (U)O rdered By: Remus Ungur on 06-08-2025 Bilirubin Ql (U) Negative Negative [facility] Brain/Head without Contrasto n 06-08-2025 Brain/Head without Contrast Normal [facility] CBC W/Diff, Automatedon 07-2 0-5 Absolute Lymph 3.30 X10 3/uL Normal 0.83-4.51 [facility] Comment on above: Performed By: #### L 500.2500, L100.0100 ####[facility] [address] [place], [address] Absolute Neut 4.8 X10 3/uL Normal 2.0-7.7 [facility] Comment on above: Performed By: #### L 500.2500, L100.0100 ####[facility] [address] [place], [address] Basophils/100 WBC (Bld) 0.9 % Normal 0-1 [facility] Comment on above: Performed By: #### L 500.2500, L100.0100 ####[facility] [address] [place], [address] Eosinophils/100 WBC (Bld) 1.9 % Normal 0-5 [facility] Comment on above: Performed By: #### L 500.2500, L100.0100 ####[facility] [address] [place], [address] Erythrocyte distribution width (RBC) [Ratio] 13.2 % Normal 11.6-14.6 [facility] Comment on above: Performed By: #### L 500.2500, L100.0100 ####[facility] [address] [place], [address] Hematocrit (Bld) [Volume fraction] 41.6 % Normal 40-54 [facility] Comment on above: Performed By: #### L 500.2500, L100.0100 ####[facility] [address] [place], [address] Hemoglobin (Bld) [Mass/Vol] 14.4 g/dL Normal 13.0-16.5 [facility] Comment on above: Performed By: #### L 500.2500, L100.0100 ####[facility] [address] [place], [address] IG% 0.800 Normal 0.0-0.9 [facility] Comment on above: Result Comment: IG% - Immature Granulocytes (promyelocytes, myelocytes andmetamyelocytes) > 1% indicates that a LEFT SHIFT is Present. Performed By: #### L 500.2500, L100.0100 ####[facility] [address] [place], [address] Lymphocytes/100 WBC (Bld) 36.0 % Normal 19-41 [facility] Comment on above: Performed By: #### L 500.2500, L100.0100 ####[facility] [address] [place], [address] MCH (RBC) [Entitic mass] 30.8 pg Normal 27.0-32.0 [facility] Comment on above: Performed By: #### L 500.2500, L100.0100 ####[facility] [address] [place], [address] MCHC (RBC) [Mass/Vol] 34.6 g/dL Normal 32-36 [facility] Comment on above: Performed By: #### L 500.2500, L100.0100 ####[facility] [address] [place], [address] MCV (RBC) [Entitic vol] 89.1 fL Normal 80-94 [facility] Comment on above: Performed By: #### L 500.2500, L100.0100 ####[facility] [address] [place], [address] Monocytes/100 WBC (Bld) 8.5 % Normal 0-10 [facility] Comment on above: Performed By: #### L 500.2500, L100.0100 ####[facility] [address] [place], [address] Neutrophils/100 WBC (Bld) 51.9 % Normal 47-70 [facility] Comment on above: Performed By: #### L 500.2500, L100.0100 ####[facility] [address] [place], [address] Nucleated RBC (Bld) [#/Vol] 0 10*3/uL Normal 0-5 [facility] Comment on above: Performed By: #### L 500.2500, L100.0100 ####[facility] [address] [place], [address] Platelet mean volume (Bld) [Entitic vol] 10.4 fL Normal 6.2-12.0 [facility] Comment on above: Performed By: #### L 500.2500, L100.0100 ####[facility] [address] [place], [address] Platelets (Bld) [#/Vol] 261 10*3/uL Normal 150-450 [facility] Comment on above: Performed By: #### L 500.2500, L100.0100 ####[facility] [address] [place], [address] RBC (Bld) [#/Vol] 4.67 10*6/uL Normal 4.6-6.2 [facility] Comment on above: Performed By: #### L 500.2500, L100.0100 ####[facility] [address] [place], [address] RDW SD 42.2 fl Normal 35.1-43.9 [facility] Comment on above: Performed By: #### L 500.2500, L100.0100 ####[facility] [address] [place], [address] WBC (Bld) [#/Vol] 9.2 10*3/uL Normal 4.4-11.0 [facility] Comment on above: Performed By: #### L 500.2500, L100.0100 ####[facility] [address] [place], [address] Carbon dioxide, total [Moles /volume] in Central venous bloodOrdered By: Joe Soto on 06-08-2025 CO2 [Moles/Vol] 24.5 mmol/L 21.0-32.0 [facility] Carotid Duplex Ultrasoundon 06-08-2025 Carotid Duplex Ultrasound Normal [facility] Chest 1 View (Portable)on Chest 1 View (Portable) Normal [facility] Chloride assayOrdered By: Darien Soto on 06-08-2025 Chloride [Moles/Vol] 103 mmol/L 98-108 [facility] Echo Complete W/ Contraston 06-08-2025 Echo Complete W/ Contrast Normal [facility] Emergency Department Summary on 06-08-2025 Emergency Department Summary Normal [facility] Eosinophil percentageOrdered By: Joe Soto on 06-08-2025 Eosinophils/100 WBC (Bld) 1.9 % 0-5 [facility] Erythrocyte distribution wid th ratioOrdered By: Joe Soto on 06-08-2025 Erythrocyte distribution width (RBC) [Ratio] 13.2 % 11.6-14.6 [facility] Erythrocyte distribution wid th standard deviationOrdered By: Joe Soto on 06-08-2025 Erythrocyte distribution width (RBC) [Ratio] 42.2 fl 35.1-43.9 [facility] Glomerular filtration rate ( GFR) estimation/1.73 sq m using serum, plasma, or whole bOrdered By: Joe Soto on 06-08-2025 GFR/1.73 sq M.predicted among non-blacks MDRD (S/P/Bld) [Vol rate/Area] 88 mL/min/{1.73_m2} >60 [facility] Comment on above: mL/min/1.73m2 CKD-EP I Creatinine Equation (2020) H AND P Exam - [facility] 06-08-2025 H&P Exam - Hospitalist Normal [facility] Hematocrit Auto (Bld) [Volum e fraction]Ordered By: Joe Soto on 06-08-2025 Hematocrit (Bld) [Volume fraction] 41.6 % 40-54 [facility] Hemoglobin measurementOrdere d By: Joe Soto on 06-08-2025 Hemoglobin (Bld) [Mass/Vol] 14.4 g/dL 13.0-16.5 [facility] Immature granulocytes/100 WB C Auto (Bld)Ordered By: Joe Soto on 06-08-2025 Immature granulocytes/100 WBC (Bld) 0.800 % 0.0-0.9 [facility] Comment on above: IG% - Immature Granu locytes (promyelocytes, myelocytes and metamyelocytes) > 1% indicates that a LEFT SHIFT is Present. Ketones Test strip Ql (U)Ord ered By: Joe Soto on 06-08-2025 Ketones Ql (U) 5 mg/dl High Negative [facility] L499.0042on 06-08-2025 Trop T High Sen 14 ng/L Normal <=22 [facility] Comment on above: Performed By: #### L 499.0042 ####[facility] [address] [place], [address] L501.4021on 06-08-2025 Trop T High Sen 17 ng/L Normal <=22 [facility] Comment on above: Order Comment: CR Navarro. PREVIOUS SPECIMEN REJECTED DUE TOHEMOLYSIS. 06/08/25 1854 Bo Elias. Performed By: #### L 501.4021, L500.2500 ####[facility] [address] [place], [address] MCV (mean corpuscular volume ) determinationOrdered By: Joe Soto on 06-08-2025 MCV (RBC) [Entitic vol] 89.1 fL 80-94 [facility] Magnesiumon 06-08-2025 Magnesium [Mass/Vol] 1.6 mg/dL Normal 1.5-2.2 [facility] Comment on above: Performed By: #### L 505.5000, L506.0200, L501.9520, L501.5200 ####[facility] [address] [place], [address] Magnesium measurement (mass/ volume)Ordered By: Geo Reyes on 06-08-2025 Magnesium (Unsp spec) [Mass/Vol] 1.6 mg/dL 1.5-2.2 [facility] Mean corpuscular hemoglobin (MCH) determinationOrdered By: Joe Soto on 06-08-2025 MCH (RBC) [Entitic mass] 30.8 pg 27.0-32.0 [facility] Mean corpuscular hemoglobin concentration (MCHC) determinationOrdered By: Joe Soto on 06-08-2025 MCHC (RBC) [Mass/Vol] 34.6 g/dL 32-36 [facility] Mean platelet volume determi nationOrdered By: Joe Soto on 06-08-2025 Platelet mean volume (Bld) [Entitic vol] 10.4 fL 6.2-12.0 [facility] Microscopic analysis of urin e for red blood cells (RBC)Ordered By: Joe Soto on 06-08-2025 Microscopic analysis of urine for red blood cells (RBC) 0-5 SEEN /hpf 0-5 [facility] Monocyte percentageOrdered B y: Joe Soto on 06-08-2025 Monocytes/100 WBC (Bld) 8.5 % 0-10 [facility] Mucus LM Ql (Urine sed)Order ed By: Joe Soto on 06-08-2025 Mucus Ql (Urine sed) 2+ /hpf [facility] Neutrophil percentageOrdered By: Joe Soto on 06-08-2025 Neutrophils/100 WBC (Bld) 51.9 % 47-70 [facility] Nitrite Test strip Ql (U)Ord ered By: Joe Soto on 06-08-2025 Nitrite Ql (U) Negative Negative [facility] No Panel InformationOrdered By: Geo Reyes on 06-08-2025 Urine Buprenorphine Qualitative Negative < 200 ng/mL [facility] Urine Oxycodone Screen Negative < 100 ng/mL [facility] Nucleated red blood cell per centageOrdered By: Joe Soto on 06-08-2025 Nucleated RBC/100 WBC (Bld) [Ratio] 0 % 0-5 [facility] Platelet countOrdered By: Darien Soto on 06-08-2025 Platelets (Bld) [#/Vol] 261 10*3/uL 150-450 [facility] Potassium measurement (mass/ volume)Ordered By: Joe Soto on 06-08-2025 Potassium (Unsp spec) [Mass/Vol] 4.0 mmol/L 3.3-5.1 [facility] Protein Test strip Ql (U)Ord ered By: Joe Soto on 06-08-2025 Protein Ql (U) 15 mg/dl High Negative [facility] Quantitative urine opiates m easurementOrdered By: Geo Reyes on 06-08-2025 Opiates Ql (U) Negative < 300 ng/mL [facility] RBC Auto (Bld) [#/Vol]Ordere d By: Joe Soto on 06-08-2025 RBC (Bld) [#/Vol] 4.67 10*6/uL 4.6-6.2 [facility] Screening urine fentanyl gabriele surementOrdered By: Geo Reyes on 06-08-2025 fentaNYL Screen Ql (U) Negative [facility] Serum creatinine measurement (mass/volume)Ordered By: Joe Soto on 06-08-2025 Creatinine [Mass/Vol] 0.85 mg/dL 0.70-1.20 [facility] Serum glucose measurement (m ass/volume)Ordered By: Joe Soto on 06-08-2025 Glucose [Mass/Vol] 224 mg/dL High 70-99 [facility] Serum or plasma calcium walt urement (mass/volume)Ordered By: Joe Soto on 06-08-2025 Calcium [Mass/Vol] 9.0 mg/dL 7.6-11.0 [facility] Serum or plasma ethanol walt urement (mass/volume)Ordered By: Geo Reyes on 06-08-2025 Ethanol [Mass/Vol] mg/dL <10.1 [facility] Comment on above: This test is for med ical purposes only. The legal definition of intoxication varies according to local law. Serum or plasma urea nitroge n measurement (mass/volume)Ordered By: Joe Soto on 06-08-2025 Urea nitrogen [Mass/Vol] 22 mg/dL High 4-19 [facility] Sodium levelOrdered By: Robert Soto on 06-08-2025 Sodium [Moles/Vol] 139 mmol/L 133-145 [facility] Spine Cervical without Contr ason 06-08-2025 Spine Cervical without Contras Normal [facility] Squamous epithelial cells de tection in urine sediment by light microscopyOrdered By: Joe Soto on 06-08-2025 Epithelial cells.squamous LM Ql (Urine sed) 0-5 SEEN /hpf 0-5 [facility] TSH DL <= 0.005 mIU/L QnOrde red By: Geo Reyes on 06-08-2025 TSH Qn 2.200 uIU/mL 0.300-4.200 [facility] Thyroid Stim Hormone (TSH)on 06-08-2025 TSH 2.200 uIU/mL Normal 0.300-4.200 [facility] Comment on above: Performed By: #### L 505.5000, L506.0200, L501.9520, L501.5200 ####[facility] [address] [place] [phone] Troponin T.cardiac [Mass/vol ume] in Serum or Plasma by High sensitivity methodOrdered By: Joe Soto on 06-08-2025 Troponin T.cardiac High sensitivity method [Mass/Vol] 15 ng/L <22 [facility] Troponin T.cardiac High sensitivity method [Mass/Vol] 14 ng/L <22 [facility] Troponin T.cardiac High sensitivity method [Mass/Vol] 17 ng/L <22 [facility] Urinalysis, Completeon 06-08 BACTERIA RARE Normal None Seen [facility] Comment on above: Order Comment: CLEAN CATCH Performed By: #### L 400.0001 ####[facility] [address] [facility] [id number] EPI,SQUAMOUS 0-5 SEEN Normal 0-5 [facility] Comment on above: Order Comment: CLEAN CATCH Performed By: #### L 400.0001 ####[facility] [address] [place] [phone] Mucus Ql (Urine sed) 2+ /hpf Normal [facility] Comment on above: Order Comment: CLEAN CATCH Performed By: #### L 400.0001 ####[facility] [address] [place], [address] RBC 0-5 SEEN Normal 0-5 [facility] Comment on above: Order Comment: CLEAN CATCH Performed By: #### L 400.0001 ####[facility] [address] [place], [address] WBC 0-5 SEEN Normal 0-5 [facility] Comment on above: Order Comment: CLEAN CATCH Performed By: #### L 400.0001 ####[facility] [address] [place], [address] Urine Drug Screen (VISTA)on 06-08-2025 AMPHETAMINES Negative Normal <1000 ng/mL [facility] Comment on above: Order Comment: U Performed By: #### L 505.5000, L506.0200, L501.9520, L501.5200 ####[facility] [address] [place], [address] BARBITIURATES Negative Normal < 200 ng/mL [facility] Comment on above: Order Comment: U Performed By: #### L 505.5000, L506.0200, L501.9520, L501.5200 ####[facility] [address] [place], [address] BENZODIAZIPINE Negative Normal < 200 ng/mL [facility] Comment on above: Order Comment: U Performed By: #### L 505.5000, L506.0200, L501.9520, L501.5200 ####[facility] [address] [place], [address] BUP Ur Drug Scr Negative Normal < 200 ng/mL [facility] Comment on above: Order Comment: U Performed By: #### L 505.5000, L506.0200, L501.9520, L501.5200 ####[facility] [address] [place], [address] COCAINE Negative Normal < 300 ng/mL [facility] Comment on above: Order Comment: U Performed By: #### L 505.5000, L506.0200, L501.9520, L501.5200 ####[facility] [address] [place], [address] Fentanyl Negative Normal [facility] Comment on above: Order Comment: U Performed By: #### L 505.5000, L506.0200, L501.9520, L501.5200 ####[facility] [address] [place], [address] METHADONE Negative Normal < 300 ng/mL [facility] Comment on above: Order Comment: U Performed By: #### L 505.5000, L506.0200, L501.9520, L501.5200 ####[facility] [address] [place], [address] OPIATES Negative Normal < 300 ng/mL [facility] Comment on above: Order Comment: U Performed By: #### L 505.5000, L506.0200, L501.9520, L501.5200 ####[facility] [address] [place] [phone] OXYCODONE Negative Normal < 100 ng/mL [facility] Comment on above: Order Comment: U Performed By: #### L 505.5000, L506.0200, L501.9520, L501.5200 ####[facility] [address] [place], [address] PCP Negative Normal < 25 ng/mL [facility] Comment on above: Order Comment: U Performed By: #### L 505.5000, L506.0200, L501.9520, L501.5200 ####[facility] [address] [place], [place], [address] THC Negative Normal < 50 ng/mL [facility] Comment on above: Order Comment: U Performed By: #### L 505.5000, L506.0200, L501.9520, L501.5200 ####[facility] [address] [place], [place], [id number] Urine benzodiazepine levelOr dered By: Geo Reyes on 06-08-2025 Benzodiazepines Ql (U) Negative < 200 ng/mL W [facility] Urine clarityOrdered By: Yulisa Soto on 06-08-2025 Clarity (U) Clear Clear [facility] Urine cocaine levelOrdered B y: Geo Reyes on 06-08-2025 Cocaine Ql (U) Negative < 300 ng/mL [facility] Urine color determinationOrd ered By: Joe Soto on 06-08-2025 Color (U) Yellow Yellow [facility] Urine ziezv-7-esnmpqilznbttd abinol (THC) measurementOrdered By: Geo Reyes on 06-08-2025 Cannabinoids Screen Ql (U) Negative < 50 ng/mL [facility] Urine glucose detectionOrder ed By: Joe Soto on 06-08-2025 Glucose Ql (U) 50 mg/dl High Normal [facility] Urine leukocyte esterase det ection by dipstickOrdered By: Joe Soto on 06-08-2025 Leukocyte esterase Test strip Ql (U) Negative Negative [facility] Urine pHOrdered By: Joe Hwang gur on 06-08-2025 pH (U) 6.0 [pH] 5.0 - 8.0 [facility] Urine phencyclidine (PCP) de tectionOrdered By: Geo Reyes on 06-08-2025 Phencyclidine Ql (U) Negative < 25 ng/mL [facility] Urine sediment bacteria coun t by microscopy (number/high power field)Ordered By: Joe Soto on 06-08-2025 Bacteria LM.HPF (Urine sed) [#/Area] RARE /hpf None Seen [facility] Urine specific gravity measu rementOrdered By: Joe Soto on 06-08-2025 Specific gravity (U) [Rel density] 1.020 1.002-1.030 [facility] Urine urobilinogen measureme ntOrdered By: Joe Soto on 06-08-2025 Urobilinogen Ql (U) 1 mg/dl High Normal [facility] Vitamin B12 ser/plasOrdered By: Geo Reyes on 06-08-2025 Cobalamin (Vitamin B12) [Mass/Vol] 230 pg/mL 180-914 [facility] White blood cell (WBC) count Ordered By: Joe Soto on 06-08-2025 WBC (Bld) [#/Vol] 9.2 10*3/uL 4.4-11.0 [facility] White blood cell countOrdere d By: Joe Soto on 06-08-2025 White blood cell count 0-5 SEEN /hpf 0-5 [facility] Folates, RBCon 05-28-2025 Fol.,Hemolysate 498.0 ng/mL Normal Not Estab. [facility] Comment on above: Order Comment: LUPE Deleon SEND RESULTS OF B12 AND FOLATES TO Performed By: #### L 3100.1725, L503.0106, L501.9985, L500.2500, L501.4405, L501.4100 ####[facility] [address] [place], [address] Folate, RBC 1087 ng/mL Normal >498 [facility] Comment on above: Order Comment: LUPE Deleon SEND RESULTS OF B12 AND FOLATES TO Result Comment: Perf ormed at: - [facility] [address] [id number] Director: Vj Garcia PhD, Phone: [phone] Performed By: #### L 3100.1725, L503.0106, L501.9985, L500.2500, L501.4405, L501.4100 ####[facility] [address] [place], [address] Hematocrit (Bld) [Volume fraction] 45.8 % Normal 37.5-51.0 [facility] Comment on above: Order Comment: LUPE Deleon SEND RESULTS OF B12 AND FOLATES TO Performed By: #### L 3100.1725, L503.0106, L501.9985, L500.2500, L501.4405, L501.4100 ####[facility] [address] [place], [address] AST(SGOT)on 05-26-2025 AST [Catalytic activity/Vol] 14 U/L Normal <=37 [facility] Comment on above: Order Comment: LUPE Deleon SEND RESULTS OF B12 AND FOLATES TO Performed By: #### L 3100.1725, L503.0106, L501.9985, L500.2500, L501.4405, L501.4100 ####[facility] [address] [place], [address] Alanine Aminotransferas (SGP T)on 05-26-2025 ALT [Catalytic activity/Vol] 6 U/L Normal <=46 [facility] Comment on above: Order Comment: LUPE Deleon SEND RESULTS OF B12 AND FOLATES TO Performed By: #### L 3100.1725, L503.0106, L501.9985, L500.2500, L501.4405, L501.4100 ####[facility] [address] [place], [address] Anion gap in Serum or Plasma Ordered By: Natasha Gregory on 05-26-2025 Anion gap [Moles/Vol] 12 mmol/L - [facility] BUN/creatinine ratioOrdered By: Natasha Gregory on 05-26-2025 Urea nitrogen/Creatinine [Mass ratio] 19.8 mg/mg - [facility] Basic Metabolic Profile (BMP )on 05-26-2025 BUN/CRE 19.8 RATIO Normal 09-08 [facility] Comment on above: Order Comment: LUPE Deleon SEND RESULTS OF B12 AND FOLATES TO Performed By: #### L 3100.1725, L503.0106, L501.9985, L500.2500, L501.4405, L501.4100 ####[facility] [address] [place], [address] Calcium [Mass/Vol] 9.2 mg/dL Normal 7.6-11.0 [facility] Comment on above: Order Comment: LUPE Deleon SEND RESULTS OF B12 AND FOLATES TO Performed By: #### L 3100.1725, L503.0106, L501.9985, L500.2500, L501.4405, L501.4100 ####[facility] [address] [facility] [place], [address] Chloride [Moles/Vol] 104 mmol/L Normal 98-108 [facility] Comment on above: Order Comment: LUPE Deleon SEND RESULTS OF B12 AND FOLATES TO Performed By: #### L 3100.1725, L503.0106, L501.9985, L500.2500, L501.4405, L501.4100 ####[facility] [address] [facility] [place], [address] CO2 [Moles/Vol] 25.8 mmol/L Normal 21.0-32.0 [facility] Comment on above: Order Comment: LUPE Deleon SEND RESULTS OF B12 AND FOLATES TO Performed By: #### L 3100.1725, L503.0106, L501.9985, L500.2500, L501.4405, L501.4100 ####[facility] [address] [place], [address] Creatinine [Mass/Vol] 0.91 mg/dL Normal 0.70-1.20 [facility] Comment on above: Order Comment: LUPE E SEND RESULTS OF B12 AND FOLATES TO Performed By: #### L 3100.1725, L503.0106, L501.9985, L500.2500, L501.4405, L501.4100 ####[facility] [address] [place], [address] GAP 12 Normal 5-15 [facility] Comment on above: Order Comment: LUPE Deleon SEND RESULTS OF B12 AND FOLATES TO Performed By: #### L 3100.1725, L503.0106, L501.9985, L500.2500, L501.4405, L501.4100 ####[facility] [address] [place], [address] GFR/1.73 sq M.predicted among non-blacks MDRD (S/P/Bld) [Vol rate/Area] 86 mL/min/{1.73_m2} Normal >60 [facility] Comment on above: Order Comment: LUPE Deleon SEND RESULTS OF B12 AND FOLATES TO Result Comment: mL/m in/1.73m2 CKD-EPI Creatinine Equation (2020) Performed By: #### L 3100.1725, L503.0106, L501.9985, L500.2500, L501.4405, L501.4100 ####[facility] [address] [place], [address] Glucose [Mass/Vol] 52 mg/dL Low 70-99 [facility] Comment on above: Order Comment: LUPE Deleon SEND RESULTS OF B12 AND FOLATES TO Performed By: #### L 3100.1725, L503.0106, L501.9985, L500.2500, L501.4405, L501.4100 ####[facility] [address] [place], [address] Potassium [Moles/Vol] 3.9 mmol/L Normal 3.3-5.1 [facility] Comment on above: Order Comment: LUPE Deleon SEND RESULTS OF B12 AND FOLATES TO Performed By: #### L 3100.1725, L503.0106, L501.9985, L500.2500, L501.4405, L501.4100 ####[facility] [address] [place], [address] Sodium [Moles/Vol] 142 mmol/L Normal 133-145 [facility] Comment on above: Order Comment: LUPE SEND RESULTS OF B12 AND FOLATES TO Performed By: #### L 3100.1725, L503.0106, L501.9985, L500.2500, L501.4405, L501.4100 ####[facility] [address] [place], [address] Urea nitrogen [Mass/Vol] 18 mg/dL Normal 4-19 [facility] Comment on above: Order Comment: [facility] SEND RESULTS OF B12 AND FOLATES TO Performed By: #### L 3100.1725, L503.0106, L501.9985, L500.2500, L501.4405, L501.4100 ####[facility] [address] [place], [place], [id number] Carbon dioxide, total [Moles /volume] in Central venous bloodOrdered By: Natasha Gregory on 05-26-2025 CO2 [Moles/Vol] 25.8 mmol/L 21.0-32.0 [facility] Chloride assayOrdered By: Terri Gregory on 05-26-2025 Chloride [Moles/Vol] 104 mmol/L 98-108 [facility] Erythrocyte folate measureme nt with hematocritOrdered By: Natasha Gregory on 05-26-2025 Hematocrit (Bld) [Volume fraction] 45.8 % 37.5-51.0 [facility] Glomerular filtration rate ( GFR) estimation/1.73 sq m using serum, plasma, or whole bOrdered By: Natasha Gregory on 05-26-2025 GFR/1.73 sq M.predicted among non-blacks MDRD (S/P/Bld) [Vol rate/Area] 86 mL/min/{1.73_m2} >60 [facility] Comment on above: mL/min/1.73m2 CKD-EP I Creatinine Equation (2020) Hemoglobin A1con 05-26-2025 HbA1c (Bld) [Mass fraction] 6.6 % High <=5.6 [facility] Comment on above: Order Comment: LUPE Deleon SEND RESULTS OF B12 AND FOLATES TO Result Comment: Norm al < 5.7 % Prediabetic 5.7 - 6.4 % Diabetic >or= 6.5 % Please note range changes. Performed By: #### L 3100.1725, L503.0106, L501.9985, L500.2500, L501.4405, L501.4100 ####[facility] [address] [place], [address] Hemoglobin A1c percentageOrd ered By: Natasha Gregory on 05-26-2025 HbA1c (Bld) [Mass fraction] 6.6 % High <5.7 [facility] Comment on above: Normal < 5.7 % Predi abetic 5.7 - 6.4 % Diabetic >or= 6.5 % Please note range changes. Laboratory - Chemistry and C hemistry - challengeOrdered By: Natasha Gregory on 05-26-2025 AST [Catalytic activity/Vol] 14 U/L <38 [facility] Potassium measurement (mass/ volume)Ordered By: Natasha Gregory on 05-26-2025 Potassium (Unsp spec) [Mass/Vol] 3.9 mmol/L 3.3-5.1 [facility] Serum creatinine measurement (mass/volume)Ordered By: Natasha Gregory on 05-26-2025 Creatinine [Mass/Vol] 0.91 mg/dL 0.70-1.20 [facility] Serum glucose measurement (m ass/volume)Ordered By: Natasha Gregory on 05-26-2025 Glucose [Mass/Vol] 52 mg/dL Low 70-99 [facility] Serum or plasma alanine max otransferase (ALT) measurementOrdered By: Natasha Gregory on 05-26-2025 ALT [Catalytic activity/Vol] 6 U/L <47 [facility] Serum or plasma calcium walt urement (mass/volume)Ordered By: Natasha Gregory on 05-26-2025 Calcium [Mass/Vol] 9.2 mg/dL 7.6-11.0 [facility] Serum or plasma urea nitroge n measurement (mass/volume)Ordered By: Natasha Gregory on 05-26-2025 Urea nitrogen [Mass/Vol] 18 mg/dL 4-19 [facility] Sodium levelOrdered By: Josefina Gregory on 05-26-2025 Sodium [Moles/Vol] 142 mmol/L 133-145 [facility] Vitamin B12on 05-26-2025 Cobalamin (Vitamin B12) [Mass/Vol] 287 pg/mL Normal 180-914 [facility] Comment on above: Order Comment: LUPE Deleon SEND RESULTS OF B12 AND FOLATES TO Performed By: #### L 3100.1725, L503.0106, L501.9985, L500.2500, L501.4405, L501.4100 ####[facility] [address] [place], [place], [id number] Vitamin B12 ser/plasOrdered By: Natasha Gregory on 05-26-2025 Cobalamin (Vitamin B12) [Mass/Vol] 287 pg/mL 180-914 [facility] D/C Summary- SPon 05-19-2025 D/C Summary- SP Normal [facility] Bedside Glucoseon 05-11-2025 FINGERSTICK GLU 97 mg/dL Normal 74-106 [facility] Comment on above: Result Comment: GARY REYES OF PATIENT CARE PER NURSING PROTOCOL Performed By: #### L 501.080 ####[facility] [address] [place], [place], [id number] Emergency Department Summary on 05-11-2025 Emergency Department Summary Normal [facility] Glucose measurement at bedsi deOrdered By: aDno Minor on 05-11-2025 Glucose [Mass/Vol] 97 mg/dL 74-106 [facility] Comment on above: MANAGEMENT OF PATIEN T CARE PER NURSING PROTOCOL Modified Barium Swallow Stud yon 05-09-2025 Modified Barium Swallow Study Normal [facility] Microalb:Creat Ratio,Random URon 05-08-2025 MALB:CREAT 8.8 mg/g CRE Normal [facility] Comment on above: Result Comment: AMENDED REPORT 05/08/25 0851 MALB:CREAT previously reported as: 87.7 mg/g CRE Performed By: #### L 501.4405, L501.9985, L502.0250, L501.4100, L500.2500 ####[facility] [address] [place], [address] CT MAXILLOFACIAL WO IV CONTR Princess 04-13-2025 CT MAXILLOFACIAL WO IV CONTRAST Patient Name: LUIS ARMANDO GRIFFITH : 1945 Exam Date/Time: 04/13/2025 21:07 [...] lac to forehead above left eye Normal [facility] CT Maxillofacial region WO lawrence fischer 04-13-2025 1. Bilateral nasal bone fractures. 2. Left frontal scalp laceration with contusion. Report Dictated on Electronically Signed By: Maine Briones MD Electronically Signed Date/Time: 04/13/2025 9:21 PM EDT [facility] Patient Name: LUIS ARMANDO GRIFFITH : 1945 Exam Date/Time: 04/13/2025 21:07 [...] Maine Briones MD - 04/13/2025 Patient Name: LUIS ARMANDO GRIFFITH : 1945 Exam Date/Time: 04/13/2025 21:07 [...] Electronically Signed Date/Time: 04/13/2025 9:21 PM EDT [facility] Radiology Study observation (narrative) [facility] CT Maxillofacial region WO c ontrastOrdered By: Maine Briones on 04-13-2025 [facility] Work Phone: ED Nursing Noteon 04-13-2025 ED Nursing Note Pt presents to ED [facility] from [facility] for c/o left frontal head lac after losing footing and falling onto face on the ground. Pt has hx of parkinson's. Abrasion noted to forehead, small lac noted to bridge of nose as well as a large lac to forehead above left eye Normal [facility] ED Provider Noteon ED Provider Note EMERGENCY DEPARTMENT ENCOUNTER Pt Name: Luis Armando Grififth Birthdate 1945 Date of evaluation: 04/13/2025 ED Provider: Roddy Powell MD CHIEF COMPLAINT Chief Complaint Patient presents with Laceration HISTORY OF PRESENT ILLNESS (Location/Symptom, Timing/Onset, Context/Setting, Quality, Duration, Modifying Factors, Severity) Note limiting factors. I wore appropriate PPE for the entirety of this encounter. HPI Luis Armando Griffith is a 79 y.o. male who [...] scalp laceration with contusion. Report Dictated on Workstation: [employer]overy Electronically Signed By: Maine Briones MD Electronically [...] CT maxillofacial I reviewed external records from: [facility] demonstrating 1 prescription, for Questa CT demonstrating bilateral nasal bone fractures. The [...] initial encounter Medications lidocaine-EPINEPHrine (Xylocaine W/EPI) 1 %-1:[id number] injection 10 mL (has no administration in [...] Consent obtained: Verbal Consent given by: Patient [place] protocol: Imaging studies available: yes Patient identi (more content not included)... [facility] No Panel Informationon 04-13 Chetan Powell MD 04/13/2025 10:22 PM Laceration Repair Performed by: Chetan Powell MD Authorized by: Chetan Powell MD Consent: Consent obtained: Verbal Consent given by: Patient [place] protocol: Imaging studies available: yes Patient identity [...] Dressing: Open (no dressing) Procedure completion: Tolerated [facility] Brain/Head without Contrasto n 04-09-2025 Brain/Head without Contrast Normal [facility] Emergency Department Summary on 04-09-2025 Emergency Department Summary Normal [facility] Spine Cervical without Contr ason 04-09-2025 Spine Cervical without Contras Normal [facility] Anion gap in Serum or Plasma Ordered By: Ja Cooley on 04-03-2025 Anion gap [Moles/Vol] 11 mmol/L 04-03 [facility] BUN/creatinine ratioOrdered By: Ja Cooley on 04-03-2025 Urea nitrogen/Creatinine [Mass ratio] 20.8 mg/mg High 09-08 [facility] Bilirubin, totalOrdered By: Ja Cooley on 04-03-2025 Bilirubin [Mass/Vol] 0.52 mg/dL 0.00-1.30 [facility] Calculated very low density lipoprotein (VLDL) cholesterol measurementOrdered By: Ja Cooley on 04-03-2025 Calculated very low density lipoprotein (VLDL) cholesterol measurement 27 mg/dL [facility] Carbon dioxide, total [Moles /volume] in Central venous bloodOrdered By: Ja Cooley on 04-03-2025 CO2 [Moles/Vol] 26.4 mmol/L 21.0-32.0 [facility] Chloride assayOrdered By: Rimma Cooley on 04-03-2025 Chloride [Moles/Vol] 104 mmol/L 98-108 [facility] Comprehensive Metabolic Prof ilon 04-03-2025 Albumin [Mass/Vol] 3.9 g/dL Normal 3.4-4.8 [facility] Comment on above: Order Comment: Order Date: 03/13/25Order Info: [id number] - CMPOrder Info: [id number] - LIPID Performed By: #### L 500.4050 ####[facility] [address] [place], [address] Albumin/Globulin [Mass ratio] 1.4 {ratio} Normal 0.9-2.4 [facility] Comment on above: Order Comment: Order Date: 03/13/25Order Info: [id number] - CMPOrder Info: [id number] - LIPID Performed By: #### L 500.4050 ####[facility] [address] [place], [address] ALK PHOS 79 U/L Normal 40-129 [facility] Comment on above: Order Comment: Order Date: 03/13/25Order Info: [id number] - CMPOrder Info: [id number] - LIPID Performed By: #### L 500.4050 ####[facility] [address] [place], [address] ALT [Catalytic activity/Vol] 5 U/L Normal <=46 [facility] Comment on above: Order Comment: Order Date: 03/13/25Order Info: [id number] - CMPOrder Info: [id number] - LIPID Performed By: #### L 500.4050 ####[facility] [address] [place], [address] AST [Catalytic activity/Vol] 17 U/L Normal <=37 [facility] Comment on above: Order Comment: Order Date: 03/13/25Order Info: [id number] - CMPOrder Info: [id number] - LIPID Performed By: #### L 500.4050 ####[facility] [address] [place], [address] Bilirubin [Mass/Vol] 0.52 mg/dL Normal 0.00-1.30 [facility] Comment on above: Order Comment: Order Date: 03/13/25Order Info: [id number] - CMPOrder Info: [id number] - LIPID Performed By: #### L 500.4050 ####[facility] [address] [place], [address] BUN/CRE 20.8 RATIO High 10-20 [facility] Comment on above: Order Comment: Order Date: 03/13/25Order Info: [id number] - CMPOrder Info: [id number] - LIPID Performed By: #### L 500.4050 ####[facility] [address] [place], [address] Calcium [Mass/Vol] 9.2 mg/dL Normal 7.6-11.0 [facility] Comment on above: Order Comment: Order Date: 03/13/25Order Info: 07-1 - CMPOrder Info: [id number] - LIPID Performed By: #### L 500.4050 ####[facility] [address] [place], [address] Chloride [Moles/Vol] 104 mmol/L Normal 98-108 [facility] Comment on above: Order Comment: Order Date: 03/13/25Order Info: [id number] - CMPOrder Info: [id number] - LIPID Performed By: #### L 500.4050 ####[facility] [address] [place], [address] CO2 [Moles/Vol] 26.4 mmol/L Normal 21.0-32.0 [facility] Comment on above: Order Comment: Order Date: 03/13/25Order Info: [id number] - CMPOrder Info: [id number] - LIPID Performed By: #### L 500.4050 ####[facility] [address] [place], [place], [address] Creatinine [Mass/Vol] 0.78 mg/dL Normal 0.70-1.20 [facility] Comment on above: Order Comment: Order Date: 03/13/25Order Info: [id number] - CMPOrder Info: [id number] - LIPID Performed By: #### L 500.4050 ####[facility] [address] [place], [address] GAP 11 Normal 5-15 [facility] Comment on above: Order Comment: Order Date: 03/13/25Order Info: 07 - CMPOrder Info: [id number] - LIPID Performed By: #### L 500.4050 ####[facility] [address] [place], [address] GFR/1.73 sq M.predicted among non-blacks MDRD (S/P/Bld) [Vol rate/Area] 90 mL/min/{1.73_m2} Normal >60 [facility] Comment on above: Order Comment: Order Date: 03/13/25Order Info: 07 - CMPOrder Info: [id number] - LIPID Result Comment: mL/m in/1.73m2 CKD-EPI Creatinine Equation (2020) Performed By: #### L 500.4050 ####[facility] [address] [place], [place], [address] Globulin (S) [Mass/Vol] 2.8 g/dL Normal 2.2-4.2 [facility] Comment on above: Order Comment: Order Date: 03/13/25Order Info: [id number]- - CMPOrder Info: [id number] - LIPID Performed By: #### L 500.4050 ####[facility] [address] [place], [address] Glucose [Mass/Vol] 109 mg/dL High 70-99 [facility] Comment on above: Order Comment: Order Date: 03/13/25Order Info: 07-1 - CMPOrder Info: [id number] - LIPID Performed By: #### L 500.4050 ####[facility] [address] [place], [address] Potassium [Moles/Vol] 3.9 mmol/L Normal 3.3-5.1 [facility] Comment on above: Order Comment: Order Date: 03/13/25Order Info: [id number] - CMPOrder Info: [id number] - LIPID Performed By: #### L 500.4050 ####[facility] [address] [place], [address] Sodium [Moles/Vol] 142 mmol/L Normal 133-145 [facility] Comment on above: Order Comment: Order Date: 03/13/25Order Info: [id number]- - CMPOrder Info: [id number] - LIPID Performed By: #### L 500.4050 ####[facility] [address] [place], [address] T PROT 6.6 g/dL Normal 5.9-8.4 [facility] Comment on above: Order Comment: Order Date: 03/13/25Order Info: [id number] - CMPOrder Info: [id number] - LIPID Performed By: #### L 500.4050 ####[facility] [address] [place], [address] Urea nitrogen [Mass/Vol] 16 mg/dL Normal 4-19 [facility] Comment on above: Order Comment: Order Date: 03/13/25Order Info: [id number] - CMPOrder Info: [id number] - LIPID Performed By: #### L 500.4050 ####[facility] [address] [place], [address] Glomerular filtration rate ( GFR) estimation/1.73 sq m using serum, plasma, or whole bOrdered By: Ja Cooley on 04-03-2025 GFR/1.73 sq M.predicted among non-blacks MDRD (S/P/Bld) [Vol rate/Area] 90 mL/min/{1.73_m2} >60 [facility] Comment on above: mL/min/1.73m2 CKD-EP I Creatinine Equation (2020) LDL calc ser/plasOrdered By: Ja Cooley on 04-03-2025 Cholesterol in LDL [Mass/Vol] 47 mg/dL [facility] Comment on above: Hmkmoaamtm=994-358 m g/dL & Higher Eswt=137 mg/dL or greater Laboratory - Chemistry and C hemistry - challengeOrdered By: Ja Cooley on 04-03-2025 AST [Catalytic activity/Vol] 17 U/L <38 [facility] Lipid Profileon 04-03-2025 CHOL:HDL 2.63 Normal [facility] Comment on above: Order Comment: Order Date: 03/13/25Order Info: [id number] - CMPOrder Info: [id number] - LIPID Performed By: #### L 500.4100 ####[facility] [address] [place], [place], [address] Cholesterol [Mass/Vol] 120 mg/dL Normal <=200 [facility] Comment on above: Order Comment: Order Date: 03/13/25Order Info: [id number] - CMPOrder Info: [id number] - LIPID Result Comment: Chol esterol level, Desirable <200 mg/dLBorderline high cholesterol 200-239 mg/dLHigh cholesterol >=240 mg/dLRecommendations of the NCEP Adult Treatment Panel for thefollowing risk-cutoff thresholds for the [place] Americ[place] regional health care corporationulation. Performed By: #### L 500.4100 ####[facility] [address] [place], [place], [address] Cholesterol in HDL [Mass/Vol] 46 mg/dL Normal [facility] Comment on above: Order Comment: Order Date: 03/13/25Order Info: [id number] - CMPOrder Info: [id number] - LIPID Result Comment: Makayla onal Cholesterol Education Program (NCEP) guidelines:<40 mg/dL: Low HDL-cholesterol (major risk factor for CHD)>= 60 mg/dL: High HDL-cholesterol (negative risk factor forCHD)HDL-cholesterol is affected by a number of factors, e.g.smoking, exercise, hormones, sex and age. Performed By: #### L 500.4100 ####[facility] [address] [place], [place], [address] Cholesterol in LDL [Mass/Vol] 47 mg/dL Normal [facility] Comment on above: Order Comment: Order Date: 03/13/25Order Info: [id number] - CMPOrder Info: [id number] - LIPID Result Comment: Bord swfhnw=737-790 mg/dL Higher Lnme=111 mg/dL or greater Performed By: #### L 500.4100 ####[facility] [address] [place], [place], [address] Cholesterol in VLDL [Mass/Vol] 27 mg/dL Normal 5-40 [facility] Comment on above: Order Comment: Order Date: 03/13/25Order Info: [id number] - CMPOrder Info: [id number] - LIPID Performed By: #### L 500.4100 ####[facility] [address] [place], [place], [address] Triglyceride [Mass/Vol] 135 mg/dL Normal [facility] Comment on above: Order Comment: Order Date: 03/13/25Order Info: [id number] - CMPOrder Info: [id number] - LIPID Result Comment: The drugs N-Acetylcysteine and Metamizole may falselydepress this assay.Normal range: <150 mg/dLBorderline High: 150-199 mg/dLHigh: 200-499 mg/dLVery High: >500 mg/dL Performed By: #### L 500.4100 ####[facility] [address] [place], [place], [address] Potassium measurement (mass/ volume)Ordered By: Ja Cooley on 04-03-2025 Potassium (Unsp spec) [Mass/Vol] 3.9 mmol/L 3.3-5.1 [facility] Screening total cholesterol/ high density lipoprotein (HDL) cholesterol ratioOrdered By: Ja Cooley on 04-03-2025 Cholesterol.total/Cholest gris in HDL [Mass ratio] 2.63 {ratio} [facility] Serum creatinine measurement (mass/volume)Ordered By: Ja Cooley on 04-03-2025 Creatinine [Mass/Vol] 0.78 mg/dL 0.70-1.20 [facility] Serum globulin measurementOr dered By: Ja Cooley on 04-03-2025 Globulin (S) [Mass/Vol] 2.8 g/dL 2.2-4.2 [facility] Serum glucose measurement (m ass/volume)Ordered By: Ja Cooley on 04-03-2025 Glucose [Mass/Vol] 109 mg/dL High 70-99 [facility] Serum or plasma alanine max otransferase (ALT) measurementOrdered By: Ja Cooley on 04-03-2025 ALT [Catalytic activity/Vol] 5 U/L <47 [facility] Serum or plasma albumin walt urement (mass/volume)Ordered By: Ja Cooley on 04-03-2025 Albumin [Mass/Vol] 3.9 g/dL 3.4-4.8 [facility] Serum or plasma albumin/glob ulin mass ratioOrdered By: Ja Cooley on 04-03-2025 Albumin/Globulin [Mass ratio] 1.4 {ratio} 0.9-2.4 [facility] Serum or plasma alkaline sarah sphatase measurementOrdered By: Ja Cooley on 04-03-2025 ALP [Catalytic activity/Vol] 79 U/L 40-129 [facility] Serum or plasma calcium walt urement (mass/volume)Ordered By: Ja Cooley on 04-03-2025 Calcium [Mass/Vol] 9.2 mg/dL 7.6-11.0 [facility] Serum or plasma cholesterol in HDL measurement (mass/volume)Ordered By: Ja Cooley on 04-03-2025 Cholesterol in HDL [Mass/Vol] 46 mg/dL >40 [facility] Comment on above: National Cholesterol Education Program (NCEP) guidelines:<40 mg/dL: Low HDL-cholesterol (major risk factor for CHD)>= 60 mg/dL: High HDL-cholesterol (negative risk factor for CHD)HDL-cholesterol is affected by a number of factors, e.g. smoking, exercise, hormones, sex and age. Serum or plasma cholesterol measurement (mass/volume)Ordered By: Ja Cooley on 04-03-2025 Cholesterol [Mass/Vol] 120 mg/dL <201 [facility] Comment on above: Cholesterol level, D esirable <200 mg/dLBorderline high cholesterol 200-239 mg/dLHigh cholesterol >=240 mg/dLRecommendations of the NCEP Adult Treatment Panel for the following risk-cutoff thresholds for the [place] population. Serum or plasma urea nitroge n measurement (mass/volume)Ordered By: Ja Cooley on 04-03-2025 Urea nitrogen [Mass/Vol] 16 mg/dL 4-19 [facility] Sodium levelOrdered By: Ja Cooley on 04-03-2025 Sodium [Moles/Vol] 142 mmol/L 133-145 [facility] Total proteinOrdered By: Kwabena Cooley on 04-03-2025 Protein [Mass/Vol] 6.6 g/dL 5.9-8.4 [facility] Triglycerides measurementOrd ered By: Ja Cooley on 04-03-2025 Triglyceride [Mass/Vol] 135 mg/dL <199 [facility] Comment on above: The drugs N-Acetylcy steine and Metamizole may falsely depress this assay. Normal range: <150 mg/dLBorderline High: 150-199 mg/dLHigh: 200-499 mg/dLVery High: >500 mg/dL Vitamin D,25 Hydroxyon 04-03 Vitamin D 25-OH 39.2 ng/mL Normal 30-100 [facility] Comment on above: Order Comment: Order Date: 03/13/25Order Info: [id number] - CMPOrder Info: [id number] - LIPID Result Comment: Lisa min D StatusDeficiency: <20 ng/mL (50nmol/L)Insufficiency: 20-30 ng/mL (50-75 nmol/L)Sufficiency: 30-100 ng/mL (75-250 nmol/L)Toxicity: >100 ng/mL (>250 nmol/L) Performed By: #### L 506.1001 ####[facility] [address] [place], [place], [phone] Chest without Contraston Chest without Contrast Normal [facility] Neurology Visit Reporton Neurology Visit Report Normal [facility] Absolute lymphocyte countOrd ered By: Jose Perez on 03-03-2025 Lymphocytes Auto (Unsp spec) [#/Vol] 4.51 10*3/uL 0.83-4.51 [facility] Absolute neutrophil countOrd ered By: Jose Perez on 03-03-2025 Neutrophils (Bld) [#/Vol] 5.4 10*3/uL 2.0-7.7 [facility] Automated lymphocyte count a s percentage of total leukocytesOrdered By: Jose Vikashyamile on 03-03-2025 Lymphocytes/100 WBC Auto (Unsp spec) 39.8 % 19-41 [facility] Basophil percentageOrdered B y: Jose Vikashyamile on 03-03-2025 Basophils/100 WBC (Bld) 0.7 % 0-1 [facility] CBC W/Diff, Automatedon 02-18 Absolute Lymph 4.51 X10 3/uL Normal 0.83-4.51 [facility] Comment on above: Performed By: #### L 100.0100 ####[facility] [address] [place], [address] Absolute Neut 5.4 X10 3/uL Normal 2.0-7.7 [facility] Comment on above: Performed By: #### L 100.0100 ####[facility] [address] [place], [address] Basophils/100 WBC (Bld) 0.7 % Normal 0-1 [facility] Comment on above: Performed By: #### L 100.0100 ####[facility] [address] [place], [address] Eosinophils/100 WBC (Bld) 1.2 % Normal 0-5 [facility] Comment on above: Performed By: #### L 100.0100 ####[facility] [address] [place], [address] Erythrocyte distribution width (RBC) [Ratio] 13.6 % Normal 11.6-14.6 [facility] Comment on above: Performed By: #### L 100.0100 ####[facility] [address] [place], [address] Hematocrit (Bld) [Volume fraction] 44.2 % Normal 40-54 [facility] Comment on above: Performed By: #### L 100.0100 ####[facility] [address] [place], [address] Hemoglobin (Bld) [Mass/Vol] 14.5 g/dL Normal 13.0-16.5 [facility] Comment on above: Performed By: #### L 100.0100 ####[facility] [address] [place], [address] IG% 0.500 Normal 0.0-0.9 [facility] Comment on above: Result Comment: IG% - Immature Granulocytes (promyelocytes, myelocytes andmetamyelocytes) > 1% indicates that a LEFT SHIFT is Present. Performed By: #### L 100.0100 ####[facility] [address] [place], [address] Lymphocytes/100 WBC (Bld) 39.8 % Normal 19-41 [facility] Comment on above: Performed By: #### L 100.0100 ####[facility] [address] [place], [address] MCH (RBC) [Entitic mass] 30.3 pg Normal 27.0-32.0 [facility] Comment on above: Performed By: #### L 100.0100 ####[facility] [address] [place], [address] MCHC (RBC) [Mass/Vol] 32.8 g/dL Normal 32-36 [facility] Comment on above: Performed By: #### L 100.0100 ####[facility] [address] [place], [address] MCV (RBC) [Entitic vol] 92.3 fL Normal 80-94 [facility] Comment on above: Performed By: #### L 100.0100 ####[facility] [address] [place], [address] Monocytes/100 WBC (Bld) 9.8 % Normal 0-10 [facility] Comment on above: Performed By: #### L 100.0100 ####[facility] [address] [place], [address] Neutrophils/100 WBC (Bld) 48.0 % Normal 47-70 [facility] Comment on above: Performed By: #### L 100.0100 ####[facility] [address] [place], [address] Nucleated RBC (Bld) [#/Vol] 0 10*3/uL Normal 0-5 [facility] Comment on above: Performed By: #### L 100.0100 ####[facility] [address] [place], [address] Platelet mean volume (Bld) [Entitic vol] 10.5 fL Normal 6.2-12.0 [facility] Comment on above: Performed By: #### L 100.0100 ####[facility] [address] [place], [address] Platelets (Bld) [#/Vol] 339 10*3/uL Normal 150-450 [facility] Comment on above: Performed By: #### L 100.0100 ####[facility] [address] [place], [address] RBC (Bld) [#/Vol] 4.79 10*6/uL Normal 4.6-6.2 [facility] Comment on above: Performed By: #### L 100.0100 ####[facility] [address] [place], [address] RDW SD 46.1 fl High 35.1-43.9 [facility] Comment on above: Performed By: #### L 100.0100 ####[facility] [address] [place], [address] WBC (Bld) [#/Vol] 11.3 10*3/uL High 4.4-11.0 [facility] Comment on above: Performed By: #### L 100.0100 ####[facility] [address] [place], [address] Eosinophil percentageOrdered By: Jose Perez on 03-03-2025 Eosinophils/100 WBC (Bld) 1.2 % 0-5 [facility] Erythrocyte distribution wid th (RBC) [Ratio]Ordered By: Jose Perez on 03-03-2025 Erythrocyte distribution width (RBC) [Entitic vol] 46.1 fL High 35.1-43.9 [facility] Erythrocyte distribution wid th ratioOrdered By: Jose Perez on 03-03-2025 Erythrocyte distribution width (RBC) [Ratio] 13.6 % 11.6-14.6 [facility] Erythrocyte distribution wid th standard deviationOrdered By: Jose Perez on 03-03-2025 Erythrocyte distribution width (RBC) [Ratio] 46.1 fl High 35.1-43.9 [facility] Hematocrit Auto (Bld) [Volum e fraction]Ordered By: Jose Perez on 03-03-2025 Hematocrit (Bld) [Volume fraction] 44.2 % 40-54 [facility] Hemoglobin measurementOrdere d By: Jose Perez on 03-03-2025 Hemoglobin (Bld) [Mass/Vol] 14.5 g/dL 13.0-16.5 [facility] Immature granulocytes/100 WB C Auto (Bld)Ordered By: Jose Perez on 03-03-2025 Immature granulocytes/100 WBC (Bld) 0.500 % 0.0-0.9 [facility] Comment on above: IG% - Immature Granu locytes (promyelocytes, myelocytes and metamyelocytes) > 1% indicates that a LEFT SHIFT is Present. Lymphocytes Auto (Unsp spec) [#/Vol]Ordered By: Jose Perez on 03-03-2025 Lymphocytes (Bld) [#/Vol] 4.51 10*3/uL 0.83-4.5 1 [facility] Lymphocytes/100 WBC Auto (Un sp spec)Ordered By: Jose Perez on 03-03-2025 Lymphocytes/100 WBC (Bld) 39.8 % 19-41 [facility] MCV (mean corpuscular volume ) determinationOrdered By: Jose Perez on 03-03-2025 MCV (RBC) [Entitic vol] 92.3 fL 80-94 [facility] Mean corpuscular hemoglobin (MCH) determinationOrdered By: Jose Perez on 03-03-2025 MCH (RBC) [Entitic mass] 30.3 pg 27.0-32.0 [facility] Mean corpuscular hemoglobin concentration (MCHC) determinationOrdered By: Jose Perez on 03-03-2025 MCHC (RBC) [Mass/Vol] 32.8 g/dL 32-36 [facility] Mean platelet volume determi nationOrdered By: Jose Perez on 03-03-2025 Platelet mean volume (Bld) [Entitic vol] 10.5 fL 6.2-12.0 [facility] Monocyte percentageOrdered B y: Jose Perez on 03-03-2025 Monocytes/100 WBC (Bld) 9.8 % 0-10 [facility] Neutrophil percentageOrdered By: Jose Perez on 03-03-2025 Neutrophils/100 WBC (Bld) 48.0 % 47-70 [facility] Nucleated red blood cell per centageOrdered By: Jose Perez on 03-03-2025 Nucleated RBC/100 WBC (Bld) [Ratio] 0 % 0-5 [facility] Platelet countOrdered By: Jasmine Perez on 03-03-2025 Platelets (Bld) [#/Vol] 339 10*3/uL 150-450 [facility] RBC Auto (Bld) [#/Vol]Ordere d By: Jose Perez on 03-03-2025 RBC (Bld) [#/Vol] 4.79 10*6/uL 4.6-6.2 [facility] White blood cell (WBC) count Ordered By: Jose Perez on 03-03-2025 WBC (Bld) [#/Vol] 11.3 10*3/uL High 4.4-11.0 [facility] SP/HP.SP.Davidson 02-26-2025 SP/HP.SP.EV Normal [facility] AST(SGOT)on 02-20-2025 AST [Catalytic activity/Vol] 13 U/L Normal <=37 [facility] Comment on above: Performed By: #### L 501.4405, L501.9985, L502.0250, L501.4100, L500.2500 ####[facility] [address] [place], [place], [id number] Alanine Aminotransferas (SGP T)on 02-20-2025 ALT [Catalytic activity/Vol] 7 U/L Normal <=46 [facility] Comment on above: Performed By: #### L 501.4405, L501.9985, L502.0250, L501.4100, L500.2500 ####[facility] [address] [facility] [place], [place], [id number] Albumin DL <= 20 mg/L (U) [M ass/Vol]Ordered By: Naatsha Gregory on 02-20-2025 Urine Random Microalbumin 13.6 mg/L NO RANGE EST. [facility] Anion gap in Serum or Plasma Ordered By: Natasha Gregory on 02-20-2025 Anion gap [Moles/Vol] 13 mmol/L 5-15 [facility] BUN/creatinine ratioOrdered By: Natasha Gregory on 02-20-2025 Urea nitrogen/Creatinine [Mass ratio] 23.0 mg/mg High - [facility] Basic Metabolic Profile (BMP )on 02-20-2025 BUN/CRE 23.0 RATIO High - [facility] Comment on above: Performed By: #### L 501.4405, L501.9985, L502.0250, L501.4100, L500.2500 ####[facility] [address] [place], [address] Calcium [Mass/Vol] 9.0 mg/dL Normal 7.6-11.0 [facility] Comment on above: Performed By: #### L 501.4405, L501.9985, L502.0250, L501.4100, L500.2500 ####[facility] [address] [place], [address] Chloride [Moles/Vol] 102 mmol/L Normal 98-108 [facility] Comment on above: Performed By: #### L 501.4405, L501.9985, L502.0250, L501.4100, L500.2500 ####[facility] [address] [place], [address] CO2 [Moles/Vol] 21.9 mmol/L Normal 21.0-32.0 [facility] Comment on above: Performed By: #### L 501.4405, L501.9985, L502.0250, L501.4100, L500.2500 ####[facility] [address] [place], [address] Creatinine [Mass/Vol] 0.83 mg/dL Normal 0.70-1.20 [facility] Comment on above: Performed By: #### L 501.4405, L501.9985, L502.0250, L501.4100, L500.2500 ####[facility] [address] [place], [address] GAP 13 Normal 5-15 [facility] Comment on above: Performed By: #### L 501.4405, L501.9985, L502.0250, L501.4100, L500.2500 ####[facility] [address] [place], [address] GFR/1.73 sq M.predicted among non-blacks MDRD (S/P/Bld) [Vol rate/Area] 89 mL/min/{1.73_m2} Normal >60 [facility] Comment on above: Result Comment: mL/m in/1.73m2 CKD-EPI Creatinine Equation (2020) Performed By: #### L 501.4405, L501.9985, L502.0250, L501.4100, L500.2500 ####[facility] [address] [place], [address] Glucose [Mass/Vol] 277 mg/dL High 70-99 [facility] Comment on above: Performed By: #### L 501.4405, L501.9985, L502.0250, L501.4100, L500.2500 ####[facility] [address] [place], [address] Potassium [Moles/Vol] 4.1 mmol/L Normal 3.3-5.1 [facility] Comment on above: Performed By: #### L 501.4405, L501.9985, L502.0250, L501.4100, L500.2500 ####[facility] [address] [place], [address] Sodium [Moles/Vol] 137 mmol/L Normal 133-145 [facility] Comment on above: Performed By: #### L 501.4405, L501.9985, L502.0250, L501.4100, L500.2500 ####[facility] [address] [place], [address] Urea nitrogen [Mass/Vol] 19 mg/dL Normal 4-19 [facility] Comment on above: Performed By: #### L 501.4405, L501.9985, L502.0250, L501.4100, L500.2500 ####[facility] [address] [place], [address] Carbon dioxide, total [Moles /volume] in Central venous bloodOrdered By: Natasha Gregory on 02-20-2025 CO2 [Moles/Vol] 21.9 mmol/L 21.0-32.0 [facility] Chloride assayOrdered By: Terri Gregory on 02-20-2025 Chloride [Moles/Vol] 102 mmol/L 98-108 [facility] Creatinine Unsp time (U) [Ma ss/Vol]Ordered By: Natasha Gregory on 02-20-2025 Creatinine (U) [Mass/Vol] 155.00 mg/dL 39 .00-259.0 0 [facility] GFR/1.73 sq M.predicted krystal g non-blacks MDRD (S/P/Bld) [Vol rate/Area]Ordered By: Natasha Gregory on 02-20-2025 Estimated GFR (MDRD) Non-Af Amer 89 >60 [facility] Comment on above: mL/min/1.73m2 CKD-EP I Creatinine Equation (2020) Glomerular filtration rate ( GFR) estimation/1.73 sq m using serum, plasma, or whole bOrdered By: Natasha Gregory on 02-20-2025 GFR/1.73 sq M.predicted among non-blacks MDRD (S/P/Bld) [Vol rate/Area] 89 mL/min/{1.73_m2} >60 [facility] Comment on above: mL/min/1.73m2 CKD-EP I Creatinine Equation (2020) Hemoglobin A1con 02-20-2025 HbA1c (Bld) [Mass fraction] 7.1 % Normal <=5.6 [facility] Comment on above: Performed By: #### L 501.4405, L501.9985, L502.0250, L501.4100, L500.2500 ####[facility] [address] [place], [place], [id number] Hemoglobin A1c percentageOrd ered By: Natasha Gregory on 02-20-2025 HbA1c (Bld) [Mass fraction] 7.1 % >5.7 [facility] Laboratory - Chemistry and C hemistry - challengeOrdered By: Natasha Gregory on 02-20-2025 AST [Catalytic activity/Vol] 13 U/L <38 [facility] Microalbumin/creat ratio urO rdered By: Natasha Gregory on 02-20-2025 Urine Microalbumin/Creatinine Ratio 87.7 mg/g CRE [facility] Potassium (Unsp spec) [Mass/ Vol]Ordered By: Natasha Gregory on 02-20-2025 Potassium [Moles/Vol] 4.1 mmol/L 3.3-5.1 [facility] Potassium measurement (mass/ volume)Ordered By: Natasha Gregory on 02-20-2025 Potassium (Unsp spec) [Mass/Vol] 4.1 mmol/L 3.3-5.1 [facility] Random urine creatinine walt urement (mass/volume)Ordered By: Natasha Gregory on 02-20-2025 Creatinine Unsp time (U) [Mass/Vol] 155.00 mg/dL 39.00-259.0 0 [facility] Serum creatinine measurement (mass/volume)Ordered By: Natasha Gregory on 02-20-2025 Creatinine [Mass/Vol] 0.83 mg/dL 0.70-1.20 [facility] Serum glucose measurement (m ass/volume)Ordered By: Natasha Gregory on 02-20-2025 Glucose [Mass/Vol] 277 mg/dL High 70-99 [facility] Serum or plasma alanine max otransferase (ALT) measurementOrdered By: Natasha Gregory on 02-20-2025 ALT [Catalytic activity/Vol] 7 U/L <47 [facility] Serum or plasma calcium walt urement (mass/volume)Ordered By: Natasha Gregory on 02-20-2025 Calcium [Mass/Vol] 9.0 mg/dL 7.6-11.0 [facility] Serum or plasma urea nitroge n measurement (mass/volume)Ordered By: Natasha Gregory on 02-20-2025 Urea nitrogen [Mass/Vol] 19 mg/dL 4-19 [facility] Sodium levelOrdered By: Josefina Gregory on 02-20-2025 Sodium [Moles/Vol] 137 mmol/L 133-145 [facility] Urine albumin measurement wi detection limit of 20 mg/L or less (mass/volume)Ordered By: Natasha Gregory on 02-20-2025 Albumin DL <= 20 mg/L (U) [Mass/Vol] 13.6 mg/L NO RANGE EST. [facility] Brain/Head without Contrasto n 02-14-2025 Brain/Head without Contrast Normal [facility] Emergency Department Summary on 02-14-2025 Emergency Department Summary Normal [facility] Spine Cervical without Contr ason 02-14-2025 Spine Cervical without Contras Normal [facility] Neurology Visit Reporton Neurology Visit Report Normal [facility] Chest PA and Lateralon 01-21 Chest PA and Lateral Normal [facility] Microalb:Creat Ratio,Random URon 12-10-2024 Creatinine [Mass/Vol] 104.00 mg/dL Normal NO RAN GE EST. [facility] Comment on above: Order Comment: Order Date: 12/04/24Order Info: [id number] - MIACRE Performed By: #### L 502.0250 ####[facility] [address] [place], [place], [id number] MALB:CRE 17.0 mg/g CRE Normal <30 mg/g CRE [facility] Comment on above: Order Comment: Order Date: 12/04/24Order Info: [id number] - MIACRE Performed By: #### L 502.0250 ####[facility] [address] [place], [place], [address] MICROALBUMIN,UR 17.7 mg/L Normal NO RANGE EST. [facility] Comment on above: Order Comment: Order Date: 12/04/24Order Info: [id number] - MIACRE Performed By: #### L 502.0250 ####[facility] [address] [place], [place], [id number] Neurology Visit Reporton Neurology Visit Report Normal [facility] Random urine microalbumin me asurementOrdered By: Ja Cooley on 12-10-2024 Urine Random Microalbumin 17.7 mg/L NO RANGE EST. [facility] Urine albumin/creatinine rat io for detection of microalbuminuriaOrdered By: Ja Cooley on 12-10-2024 Urine Microalbumin/Creatinine Ratio 17.0 mg/g CRE <30 [facility] Urine creatinine measurement (mass/volume)Ordered By: Ja Cooley on 12-10-2024 Creatinine (U) [Mass/Vol] 104.00 mg/dL NO RANGE EST. [facility] Brain/Head without Contrasto n 12-05-2024 Brain/Head without Contrast Normal [facility] Emergency Department Summary on 12-05-2024 Emergency Department Summary Normal [facility] Spine Cervical without Contr ason 12-05-2024 Spine Cervical without Contras Normal [facility] 68-VI-Axteqtw DOrdered By: Chetan Cooley on 12-04-2024 Vitamin D 25-Hydroxy 47.5 ng/mL [facility] Comment on above: Vitamin D 25(OH) Sta tus Range Deficiency <20 ng/mL (50nmol/L) Insufficiency 20 - 30 ng/mL (50 - 75 nmol/L) Sufficiency 30 - 100 ng/mL (75 - 250 nmol/L) Toxicity >100 ng/mL (>250 nmol/L) Absolute lymphocyte countOrd ered By: Ja Cooley on 12-04-2024 Lymphocytes Auto (Unsp spec) [#/Vol] 3.42 10*3/uL 0.83-4.51 [facility] Absolute neutrophil countOrd ered By: Ja Cooley on 12-04-2024 Neutrophils (Bld) [#/Vol] 5.9 10*3/uL 2.0-7.7 [facility] Albumin to globulin ratioOrd ered By: Ja Cooley on 12-04-2024 Albumin/Globulin [Mass ratio] 1.0 {ratio} 0.9-2.4 [facility] Automated lymphocyte count a s percentage of total leukocytesOrdered By: Ja Cooley on 12-04-2024 Lymphocytes/100 WBC Auto (Unsp spec) 31.5 % 19-41 [facility] Basophil percentageOrdered B y: Ja Cooley on 12-04-2024 Basophils/100 WBC (Bld) 1.2 % High 0-1 [facility] Bilirubin, totalOrdered By: Ja Cooley on 12-04-2024 Bilirubin [Mass/Vol] 0.80 mg/dL 0.20-1.00 [facility] Comment on above: For patients on eltr ombopag therapy, use of Dimension [place] TBIL is not recommended. Blood urea nitrogen (BUN)/cr eatinine ratioOrdered By: Ja Cooley on 12-04-2024 Urea nitrogen/Creatinine [Mass ratio] 19.7 mg/mg 10-20 [facility] CBC W/Diff, Automatedon 11-20 Absolute Lymph 3.42 X10 3/uL Normal 0.83-4.51 [facility] Comment on above: Order Comment: Order Date: 12/04/24Order Info: [id number] - CBCD Performed By: #### L 100.0100, L500.4100, L506.1000, L501.9985, L501.5200, L500.4050 ####[facility] [address] [place], [address] Absolute Neut 5.9 X10 3/uL Normal 2.0-7.7 [facility] Comment on above: Order Comment: Order Date: 12/04/24Order Info: [id number] - CBCD Performed By: #### L 100.0100, L500.4100, L506.1000, L501.9985, L501.5200, L500.4050 ####[facility] [address] [place], [address] Basophils/100 WBC (Bld) 1.2 % High 0-1 [facility] Comment on above: Order Comment: Order Date: 12/04/24Order Info: [id number] - CBCD Performed By: #### L 100.0100, L500.4100, L506.1000, L501.9985, L501.5200, L500.4050 ####[facility] [address] [place], [address] Eosinophils/100 WBC (Bld) 1.8 % Normal 0-5 [facility] Comment on above: Order Comment: Order Date: 12/04/24Order Info: [id number] - CBCD Performed By: #### L 100.0100, L500.4100, L506.1000, L501.9985, L501.5200, L500.4050 ####[facility] [address] [place], [address] Erythrocyte distribution width (RBC) [Ratio] 13.4 % Normal 11.6-14.6 [facility] Comment on above: Order Comment: Order Date: 12/04/24Order Info: [id number] - CBCD Performed By: #### L 100.0100, L500.4100, L506.1000, L501.9985, L501.5200, L500.4050 ####[facility] [address] [place], [address] Hematocrit (Bld) [Volume fraction] 47.1 % Normal 40-54 [facility] Comment on above: Order Comment: Order Date: 12/04/24Order Info: [id number] - CBCD Performed By: #### L 100.0100, L500.4100, L506.1000, L501.9985, L501.5200, L500.4050 ####[facility] [address] [place], [address] Hemoglobin (Bld) [Mass/Vol] 15.4 g/dL Normal 13.0-16.5 [facility] Comment on above: Order Comment: Order Date: 12/04/24Order Info: [id number] - CBCD Performed By: #### L 100.0100, L500.4100, L506.1000, L501.9985, L501.5200, L500.4050 ####[facility] [address] [place], [address] IG% 0.600 Normal 0.0-0.9 [facility] Comment on above: Order Comment: Order Date: 12/04/24Order Info: [id number] - CBCD Result Comment: IG% - Immature Granulocytes (promyelocytes, myelocytes andmetamyelocytes) > 1% indicates that a LEFT SHIFT is Present. Performed By: #### L 100.0100, L500.4100, L506.1000, L501.9985, L501.5200, L500.4050 ####[facility] [address] [place], [address] Lymphocytes/100 WBC (Bld) 31.5 % Normal 19-41 [facility] Comment on above: Order Comment: Order Date: 12/04/24Order Info: [id number] - CBCD Performed By: #### L 100.0100, L500.4100, L506.1000, L501.9985, L501.5200, L500.4050 ####[facility] [address] [place], [address] MCH (RBC) [Entitic mass] 30.4 pg Normal 27.0-32.0 [facility] Comment on above: Order Comment: Order Date: 12/04/24Order Info: [id number] - CBCD Performed By: #### L 100.0100, L500.4100, L506.1000, L501.9985, L501.5200, L500.4050 ####[facility] [address] [place], [address] MCHC (RBC) [Mass/Vol] 32.7 g/dL Normal 32-36 [facility] Comment on above: Order Comment: Order Date: 12/04/24Order Info: [id number] - CBCD Performed By: #### L 100.0100, L500.4100, L506.1000, L501.9985, L501.5200, L500.4050 ####[facility] [address] [place], [address] MCV (RBC) [Entitic vol] 92.9 fL Normal 80-94 [facility] Comment on above: Order Comment: Order Date: 12/04/24Order Info: [id number] - CBCD Performed By: #### L 100.0100, L500.4100, L506.1000, L501.9985, L501.5200, L500.4050 ####[facility] [address] [place], [address] Monocytes/100 WBC (Bld) 10.8 % High 0-10 [facility] Comment on above: Order Comment: Order Date: 12/04/24Order Info: [id number] - CBCD Performed By: #### L 100.0100, L500.4100, L506.1000, L501.9985, L501.5200, L500.4050 ####[facility] [address] [place], [address] Neutrophils/100 WBC (Bld) 54.1 % Normal 47-70 [facility] Comment on above: Order Comment: Order Date: 12/04/24Order Info: 018- - CBCD Performed By: #### L 100.0100, L500.4100, L506.1000, L501.9985, L501.5200, L500.4050 ####[facility] [address] [place], [address] Nucleated RBC (Bld) [#/Vol] 0 10*3/uL Normal 0-5 [facility] Comment on above: Order Comment: Order Date: 12/04/24Order Info: 018- - CBCD Performed By: #### L 100.0100, L500.4100, L506.1000, L501.9985, L501.5200, L500.4050 ####[facility] [address] [place], [address] Platelet mean volume (Bld) [Entitic vol] 10.8 fL Normal 6.2-12.0 [facility] Comment on above: Order Comment: Order Date: 12/04/24Order Info: [id number] - CBCD Performed By: #### L 100.0100, L500.4100, L506.1000, L501.9985, L501.5200, L500.4050 ####[facility] [address] [place], [address] Platelets (Bld) [#/Vol] 281 10*3/uL Normal 150-450 [facility] Comment on above: Order Comment: Order Date: 12/04/24Order Info: [id number] - CBCD Performed By: #### L 100.0100, L500.4100, L506.1000, L501.9985, L501.5200, L500.4050 ####[facility] [address] [place], [address] RBC (Bld) [#/Vol] 5.07 10*6/uL Normal 4.6-6.2 [facility] Comment on above: Order Comment: Order Date: 12/04/24Order Info: [id number] - CBCD Performed By: #### L 100.0100, L500.4100, L506.1000, L501.9985, L501.5200, L500.4050 ####[facility] [address] [place], [address] RDW SD 45.1 fl High 35.1-43.9 [facility] Comment on above: Order Comment: Order Date: 12/04/24Order Info: [id number] - CBCD Performed By: #### L 100.0100, L500.4100, L506.1000, L501.9985, L501.5200, L500.4050 ####[facility] [address] [place], [address] WBC (Bld) [#/Vol] 10.9 10*3/uL Normal 4.4-11.0 [facility] Comment on above: Order Comment: Order Date: 12/04/24Order Info: [id number] - CBCD Performed By: #### L 100.0100, L500.4100, L506.1000, L501.9985, L501.5200, L500.4050 ####[facility] [address] [place], [address] Carbon dioxide measurementOr dered By: Ja Cooley on 12-04-2024 CO2 [Moles/Vol] 29.0 mmol/L 21.0-32.0 [facility] Chloride measurementOrdered By: Ja Cooley on 12-04-2024 Chloride [Moles/Vol] 105 mmol/L 98-107 [facility] Comprehensive Metabolic Prof ilon 12-04-2024 Albumin [Mass/Vol] 3.7 g/dL Normal 3.2-5.0 [facility] Comment on above: Order Comment: Order Date: 12/04/24Order Info: [id number] - CMPOrder Info: [id number] - LIPIDOrder Info: [id number] - MG Performed By: #### L 100.0100, L500.4100, L506.1000, L501.9985, L501.5200, L500.4050 ####[facility] [address] [place], [address] Albumin/Globulin [Mass ratio] 1.0 {ratio} Normal 0.9-2.4 [facility] Comment on above: Order Comment: Order Date: 12/04/24Order Info: [id number] - CMPOrder Info: [id number] - LIPIDOrder Info: [id number] - MG Performed By: #### L 100.0100, L500.4100, L506.1000, L501.9985, L501.5200, L500.4050 ####[facility] [address] [place], [address] ALK P 91 U/L Normal 45-117 [facility] Comment on above: Order Comment: Order Date: 12/04/24Order Info: [id number] - CMPOrder Info: [id number] - LIPIDOrder Info: [id number] - MG Performed By: #### L 100.0100, L500.4100, L506.1000, L501.9985, L501.5200, L500.4050 ####[facility] [address] [place], [address] ALT [Catalytic activity/Vol] 11 U/L Low 16-61 [facility] Comment on above: Order Comment: Order Date: 12/04/24Order Info: [id number] - CMPOrder Info: [id number] - LIPIDOrder Info: [id number] - MG Performed By: #### L 100.0100, L500.4100, L506.1000, L501.9985, L501.5200, L500.4050 ####[facility] [address] [place], [address] AST [Catalytic activity/Vol] 13 U/L Low 15-37 [facility] Comment on above: Order Comment: Order Date: 12/04/24Order Info: [id number] - CMPOrder Info: [id number] - LIPIDOrder Info: [id number] - MG Performed By: #### L 100.0100, L500.4100, L506.1000, L501.9985, L501.5200, L500.4050 ####[facility] [address] [place], [address] Bilirubin [Mass/Vol] 0.80 mg/dL Normal 0.20-1.00 [facility] Comment on above: Order Comment: Order Date: 12/04/24Order Info: [id number] - CMPOrder Info: [id number] - LIPIDOrder Info: [id number] - MG Result Comment: For patients on eltrombopag therapy, use of Dimension [place] TBIL is not recommended. Performed By: #### L 100.0100, L500.4100, L506.1000, L501.9985, L501.5200, L500.4050 ####[facility] [address] [place], [address] BUN/CRE 19.7 RATIO Normal 10-20 [facility] Comment on above: Order Comment: Order Date: 12/04/24Order Info: [id number] - CMPOrder Info: [id number] - LIPIDOrder Info: [id number] - MG Performed By: #### L 100.0100, L500.4100, L506.1000, L501.9985, L501.5200, L500.4050 ####[facility] [address] [place], [address] CA,Total 9.4 mg/dL Normal 8.5-10.1 [facility] Comment on above: Order Comment: Order Date: 12/04/24Order Info: [id number]- - CMPOrder Info: [id number] - LIPIDOrder Info: [id number] - MG Performed By: #### L 100.0100, L500.4100, L506.1000, L501.9985, L501.5200, L500.4050 ####[facility] [address] [place], [address] Chloride [Moles/Vol] 105 mmol/L Normal 98-107 [facility] Comment on above: Order Comment: Order Date: 12/04/24Order Info: [id number]- - CMPOrder Info: [id number] - LIPIDOrder Info: - MG Performed By: #### L 100.0100, L500.4100, L506.1000, L501.9985, L501.5200, L500.4050 ####[facility] [address] [place], [address] CO2 [Moles/Vol] 29.0 mmol/L Normal 21.0-32.0 [facility] Comment on above: Order Comment: Order Date: 12/04/24Order Info: [id number] - CMPOrder Info: [id number] - LIPIDOrder Info: [id number] - MG Performed By: #### L 100.0100, L500.4100, L506.1000, L501.9985, L501.5200, L500.4050 ####[facility] [address] [facility] [address] Creatinine [Mass/Vol] 0.96 mg/dL Normal 0.70-1.30 [facility] Comment on above: Order Comment: Order Date: 12/04/24Order Info: [id number] - CMPOrder Info: [id number] - LIPIDOrder Info: [id number] - MG Result Comment: The validity of the calculated GFR GFRAA in patients over70 years has not been determined. Clinical correlation isessential. Performed By: #### L 100.0100, L500.4100, L506.1000, L501.9985, L501.5200, L500.4050 ####[facility] [address] [place], [address] EST GFR - AA 97 mL/min Normal >60 [facility] Comment on above: Order Comment: Order Date: 12/04/24Order Info: [id number] - CMPOrder Info: [id number] - LIPIDOrder Info: [id number] - MG Result Comment: Afri can Turkish GFR Calc Performed By: #### L 100.0100, L500.4100, L506.1000, L501.9985, L501.5200, L500.4050 ####[facility] [address] [place], [address] GAP 5 Normal 5-15 [facility] Comment on above: Order Comment: Order Date: 12/04/24Order Info: [id number] - CMPOrder Info: [id number] - LIPIDOrder Info: [id number] - MG Performed By: #### L 100.0100, L500.4100, L506.1000, L501.9985, L501.5200, L500.4050 ####[facility] [address] [place], [address] GFR/1.73 sq M.predicted among non-blacks MDRD (S/P/Bld) [Vol rate/Area] 80 mL/min/{1.73_m2} Normal >60 [facility] Comment on above: Order Comment: Order Date: 12/04/24Order Info: [id number] - CMPOrder Info: [id number] - LIPIDOrder Info: [id number] - MG Result Comment: Non- GFR Calc Performed By: #### L 100.0100, L500.4100, L506.1000, L501.9985, L501.5200, L500.4050 ####[facility] [address] [place], [address] Globulin (S) [Mass/Vol] 3.7 g/dL Normal 2.2-4.2 [facility] Comment on above: Order Comment: Order Date: 12/04/24Order Info: [id number]- - CMPOrder Info: [id number] - LIPIDOrder Info: [id number] - MG Performed By: #### L 100.0100, L500.4100, L506.1000, L501.9985, L501.5200, L500.4050 ####[facility] [address] [place], [address] Glucose [Mass/Vol] 48 mg/dL Low 74-106 [facility] Comment on above: Order Comment: Order Date: 12/04/24Order Info: [id number]- - CMPOrder Info: [id number] - LIPIDOrder Info: [id number] - MG Result Comment: Gluc ose result less than 50 mg/dL suggests HYPOGLYCEMIA. Performed By: #### L 100.0100, L500.4100, L506.1000, L501.9985, L501.5200, L500.4050 ####[facility] [address] [place], [address] Potassium [Moles/Vol] 3.9 mmol/L Normal 3.5-5.1 [facility] Comment on above: Order Comment: Order Date: 12/04/24Order Info: [id number] - CMPOrder Info: [id number] - LIPIDOrder Info: [id number] - MG Performed By: #### L 100.0100, L500.4100, L506.1000, L501.9985, L501.5200, L500.4050 ####[facility] [address] [place], [address] Sodium [Moles/Vol] 139 mmol/L Normal 136-145 [facility] Comment on above: Order Comment: Order Date: 12/04/24Order Info: [id number] - CMPOrder Info: [id number] - LIPIDOrder Info: [id number] - MG Performed By: #### L 100.0100, L500.4100, L506.1000, L501.9985, L501.5200, L500.4050 ####[facility] [address] [place], [address] T PROT 7.4 g/dL Normal 6.4-8.2 [facility] Comment on above: Order Comment: Order Date: 12/04/24Order Info: [id number] - CMPOrder Info: [id number] - LIPIDOrder Info: [id number] - MG Performed By: #### L 100.0100, L500.4100, L506.1000, L501.9985, L501.5200, L500.4050 ####[facility] [address] [place], [address] Urea nitrogen [Mass/Vol] 19 mg/dL High 7-18 [facility] Comment on above: Order Comment: Order Date: 12/04/24Order Info: [id number] - CMPOrder Info: [id number] - LIPIDOrder Info: [id number] - MG Performed By: #### L 100.0100, L500.4100, L506.1000, L501.9985, L501.5200, L500.4050 ####[facility] [address] [place], [address] Eosinophil percentageOrdered By: Ja Cooley on 12-04-2024 Eosinophils/100 WBC (Bld) 1.8 % 0-5 [facility] Erythrocyte distribution wid th ratioOrdered By: Ja Cooley on 12-04-2024 Erythrocyte distribution width (RBC) [Ratio] 13.4 % 11.6-14.6 [facility] Erythrocyte distribution wid th standard deviationOrdered By: Ja Cooley on 12-04-2024 Erythrocyte distribution width (RBC) [Entitic vol] 45.1 fL High 35.1-43.9 [facility] Erythrocyte distribution width (RBC) [Ratio] 45.1 fl High 35.1-43.9 [facility] Estimated glomerular filtrat ion rate (GFR) AmericanOrdered By: Ja Cooley on 12-04-2024 Estimated GFR (MDRD) Amer 97 mL/min >60 [facility] Comment on above: GFR Calc Glomerular filtration rate ( GFR) estimationOrdered By: Ja Cooley on 12-04-2024 Estimated GFR (MDRD) Non-Af Amer 80 mL/min >60 [facility] Comment on above: Non- GFR Calc GFR/1.73 sq M.predicted among non-blacks MDRD (S/P/Bld) [Vol rate/Area] 80 mL/min/{1.73_m2} >60 [facility] Comment on above: Non- GFR Calc Glucose measurementOrdered B y: Ja Cooley on 12-04-2024 Glucose [Mass/Vol] 48 mg/dL Low 74-106 [facility] Comment on above: Glucose result less than 50 mg/dL suggests HYPOGLYCEMIA. Hematocrit Auto (Bld) [Volum e fraction]Ordered By: Ja Cooley on 12-04-2024 Hematocrit (Bld) [Volume fraction] 47.1 % 40-54 [facility] Hemoglobin A1con 12-04-2024 HbA1c (Bld) [Mass fraction] 6.5 % High 3.8-5.6 [facility] Comment on above: Order Comment: Order Date: 12/04/24Order Info: [id number] - A1C Result Comment: Norm al < 5.7 % Prediabetic 5.7 - 6.4 % Diabetic >or= 6.5 % Please note range changes. Performed By: #### L 100.0100, L500.4100, L506.1000, L501.9985, L501.5200, L500.4050 ####[facility] [address] [place], [address] Hemoglobin A1c percentageOrd ered By: Ja Cooley on 12-04-2024 HbA1c (Bld) [Mass fraction] 6.5 % High 3.8-5.6 [facility] Comment on above: Normal < 5.7 % Predi abetic 5.7 - 6.4 % Diabetic >or= 6.5 % Please note range changes. Hemoglobin measurementOrdere d By: Ja Cooley on 12-04-2024 Hemoglobin (Bld) [Mass/Vol] 15.4 g/dL 13.0-16.5 [facility] High density lipoprotein (HD L) measurementOrdered By: Ja Cooley on 12-04-2024 Cholesterol in HDL [Mass/Vol] 45 mg/dL >40 [facility] Comment on above: The drugs N-Acetylcy steine and Metamizole may falsely depress this assay. Reference Range HDL <40 mg/dL Low HDL Cholesterol HDL >or= 60 mg/dL High HDL Cholesterol Immature granulocytes/100 WB C Auto (Bld)Ordered By: Ja Cooley on 12-04-2024 Immature granulocytes/100 WBC (Bld) 0.600 % 0.0-0.9 [facility] Comment on above: IG% - Immature Granu locytes (promyelocytes, myelocytes and metamyelocytes) > 1% indicates that a LEFT SHIFT is Present. Laboratory - Chemistry and C hemistry - challengeOrdered By: Ja Cooley on 12-04-2024 AST [Catalytic activity/Vol] 13 U/L Low 15-37 [facility] Lipid Profileon 12-04-2024 Cholesterol [Mass/Vol] 192 mg/dL Normal 200 [facility] Comment on above: Order Comment: Order Date: 12/04/24Order Info: [id number] - CMPOrder Info: [id number] - LIPIDOrder Info: [id number] - MG Result Comment: <200 mg/dL Desirable 200-240 mg/dL Borderline >240 mg/dL High Risk Performed By: #### L 100.0100, L500.4100, L506.1000, L501.9985, L501.5200, L500.4050 ####[facility] [address] [place], [address] Cholesterol in HDL [Mass/Vol] 45 mg/dL Normal [facility] Comment on above: Order Comment: Order Date: 12/04/24Order Info: [id number] - CMPOrder Info: [id number] - LIPIDOrder Info: [id number] - MG Result Comment: The drugs N-Acetylcysteine and Metamizole may falselydepress this assay. Reference Range HDL <40 mg/dL Low HDL Cholesterol HDL >or= 60 mg/dL High HDL Cholesterol Performed By: #### L 100.0100, L500.4100, L506.1000, L501.9985, L501.5200, L500.4050 ####[facility] [address] [place], [address] Cholesterol in LDL [Mass/Vol] 116 mg/dL Normal 0-130 [facility] Comment on above: Order Comment: Order Date: 12/04/24Order Info: [id number] - CMPOrder Info: [id number] - LIPIDOrder Info: [id number] - MG Performed By: #### L 100.0100, L500.4100, L506.1000, L501.9985, L501.5200, L500.4050 ####[facility] [address] [place], [address] Cholesterol in VLDL [Mass/Vol] 31 mg/dL Normal 5-40 [facility] Comment on above: Order Comment: Order Date: 12/04/24Order Info: [id number] - CMPOrder Info: [id number] - LIPIDOrder Info: [id number] - MG Performed By: #### L 100.0100, L500.4100, L506.1000, L501.9985, L501.5200, L500.4050 ####[facility] [address] [place], [address] Triglyceride [Mass/Vol] 153 mg/dL Normal [facility] Comment on above: Order Comment: Order Date: 12/04/24Order Info: [id number] - CMPOrder Info: [id number] - LIPIDOrder Info: [id number] - MG Result Comment: The drugs N-Acetylcysteine and Metamizole may falselydepress this assay.Serum Triglycerides Reference Interval Normal <150 mg/dL Borderline high 150 - 199 mg/dL High 200 - 499 mg/dL Very High > or = 500 mg/dL Performed By: #### L 100.0100, L500.4100, L506.1000, L501.9985, L501.5200, L500.4050 ####[facility] [address] [place], [address] Low density lipoprotein (LDL ) cholesterol measurementOrdered By: Ja Cooley on 12-04-2024 Cholesterol in LDL [Mass/Vol] 116 mg/dL 0-130 [facility] Lymphocytes Auto (Unsp spec) [#/Vol]Ordered By: Ja Cooley on 12-04-2024 Lymphocytes (Bld) [#/Vol] 3.42 10*3/uL 0.83-4.5 1 [facility] Lymphocytes/100 WBC Auto (Un sp spec)Ordered By: Ja Cooley on 12-04-2024 Lymphocytes/100 WBC (Bld) 31.5 % 19-41 [facility] MCV (mean corpuscular volume ) determinationOrdered By: Ja Cooley on 12-04-2024 MCV (RBC) [Entitic vol] 92.9 fL 80-94 [facility] Magnesiumon 12-04-2024 Magnesium [Mass/Vol] 2.0 mg/dL Normal 1.6-2.6 [facility] Comment on above: Order Comment: Order Date: 12/04/24Order Info: [id number] - CMPOrder Info: [id number] - LIPIDOrder Info: [id number] - MG Performed By: #### L 100.0100, L500.4100, L506.1000, L501.9985, L501.5200, L500.4050 ####[facility] [address] [place], [place], [address] Magnesium measurementOrdered By: Ja Cooley on 12-04-2024 Magnesium [Mass/Vol] 2.0 mg/dL 1.6-2.6 [facility] Mean corpuscular hemoglobin (MCH) determinationOrdered By: Ja Cooley on 12-04-2024 MCH (RBC) [Entitic mass] 30.4 pg 27.0-32.0 [facility] Mean corpuscular hemoglobin concentration (MCHC) determinationOrdered By: Ja Cooley on 12-04-2024 MCHC (RBC) [Mass/Vol] 32.7 g/dL 32-36 [facility] Mean platelet volume determi nationOrdered By: Ja Cooley on 12-04-2024 Platelet mean volume (Bld) [Entitic vol] 10.8 fL 6.2-12.0 [facility] Monocyte percentageOrdered B y: Ja Cooley on 12-04-2024 Monocytes/100 WBC (Bld) 10.8 % High 0-10 [facility] Neutrophil percentageOrdered By: Ja Cooley on 12-04-2024 Neutrophils/100 WBC (Bld) 54.1 % 47-70 [facility] Nucleated red blood cell per centageOrdered By: Ja Cooley on 12-04-2024 Nucleated RBC/100 WBC (Bld) [Ratio] 0 % 0-5 [facility] Platelet countOrdered By: Rimma Cooley on 12-04-2024 Platelets (Bld) [#/Vol] 281 10*3/uL 150-450 [facility] Potassium measurementOrdered By: Ja Cooley on 12-04-2024 Potassium [Moles/Vol] 3.9 mmol/L 3.5-5.1 [facility] RBC Auto (Bld) [#/Vol]Ordere d By: Ja Cooley on 12-04-2024 RBC (Bld) [#/Vol] 5.07 10*6/uL 4.6-6.2 [facility] Serum anion gap measurementO rdered By: Ja Cooley on 12-04-2024 Anion gap [Moles/Vol] 5 mmol/L 5-15 [facility] Serum globulin measurementOr dered By: Ja Cooley on 12-04-2024 Globulin (S) [Mass/Vol] 3.7 g/dL 2.2-4.2 [facility] Serum or plasma alanine max otransferase (ALT) measurementOrdered By: aJ Cooley on 12-04-2024 ALT [Catalytic activity/Vol] 11 U/L Low 16-61 [facility] Serum or plasma albumin walt urement (mass/volume)Ordered By: Ja Cooley on 12-04-2024 Albumin [Mass/Vol] 3.7 g/dL 3.2-5.0 [facility] Serum or plasma alkaline sarah sphatase measurementOrdered By: Ja Cooley on 12-04-2024 ALP [Catalytic activity/Vol] 91 U/L 45-117 [facility] Serum or plasma calcium walt urement (mass/volume)Ordered By: Ja Cooley on 12-04-2024 Calcium [Mass/Vol] 9.4 mg/dL 8.5-10.1 [facility] Serum or plasma cholesterol measurement (mass/volume)Ordered By: Ja Cooley on 12-04-2024 Cholesterol [Mass/Vol] 192 mg/dL <200 [facility] Comment on above: <200 mg/dL Desirable 200-240 mg/dL Borderline >240 mg/dL High Risk Serum or plasma creatinine m easurement (mass/volume)Ordered By: Ja Cooley on 12-04-2024 Creatinine [Mass/Vol] 0.96 mg/dL 0.70-1.30 [facility] Comment on above: The validity of the calculated GFR & GFRAA in patients over 70 years has not been determined. Clinical correlation is essential. Serum or plasma urea nitroge n measurement (mass/volume)Ordered By: Ja Cooley on 12-04-2024 Urea nitrogen [Mass/Vol] 19 mg/dL High 7-18 [facility] Sodium levelOrdered By: Ja Cooley on 12-04-2024 Sodium [Moles/Vol] 139 mmol/L 136-145 [facility] Total proteinOrdered By: Kwabena Cooley on 12-04-2024 Protein [Mass/Vol] 7.4 g/dL 6.4-8.2 [facility] Triglycerides measurementOrd ered By: Ja Cooley on 12-04-2024 Triglyceride [Mass/Vol] 153 mg/dL <199 [facility] Comment on above: The drugs N-Acetylcy steine and Metamizole may falsely depress this assay.Serum Triglycerides Reference Interval Normal <150 mg/dL Borderline high 150 - 199 mg/dL High 200 - 499 mg/dL Very High > or = 500 mg/dL Very low density lipoprotein (VLDL) cholesterol measurementOrdered By: Ja Cooley on 12-04-2024 Very low density lipoprotein (VLDL) cholesterol measurement 31 mg/dL [facility] VLDL Cholesterol 31 mg/dL 40 [facility] Vitamin D,25 Hydroxyon 12-04 Vitamin D 25-OH 47.5 ng/mL Normal [facility] Comment on above: Order Comment: Order Date: 12/04/24Order Info: [id number] - [id number] Result Comment: Lisa min D 25(OH) Status Range Deficiency <20 ng/mL (50nmol/L) Insufficiency 20 - 30 ng/mL (50 - 75 nmol/L) Sufficiency 30 - 100 ng/mL (75 - 250 nmol/L) Toxicity >100 ng/mL (>250 nmol/L) Performed By: #### L 100.0100, L500.4100, L506.1000, L501.9985, L501.5200, L500.4050 ####[facility] [address] [place], [address] White blood cell (WBC) count Ordered By: Ja Cooley on 12-04-2024 WBC (Bld) [#/Vol] 10.9 10*3/uL 4.4-11.0 [facility] Chest PA and Lateralon 12-02 Chest PA and Lateral Normal [facility] AST(SGOT)on 10-28-2024 AST [Catalytic activity/Vol] 9 U/L Low [facility] Comment on above: Performed By: #### L 501.4405, L500.2500, L501.4100, L501.9985 ####[facility] [address] [place], [address] Alanine Aminotransferas (SGP T)on 10-28-2024 ALT [Catalytic activity/Vol] 8 U/L Low 16-61 [facility] Comment on above: Performed By: #### L 501.4405, L500.2500, L501.4100, L501.9985 ####[facility] [address] [place], [address] Basic Metabolic Profile (BMP )on 10-28-2024 BUN/CRE 26.5 RATIO High 10-20 [facility] Comment on above: Performed By: #### L 501.4405, L500.2500, L501.4100, L501.9985 ####[facility] [address] [place], [address] CA,Total 9.3 mg/dL Normal 8.5-10.1 [facility] Comment on above: Performed By: #### L 501.4405, L500.2500, L501.4100, L501.9985 ####[facility] [address] [place], [address] Chloride [Moles/Vol] 105 mmol/L Normal 98-107 [facility] Comment on above: Performed By: #### L 501.4405, L500.2500, L501.4100, L501.9985 ####[facility] [address] [place], [address] CO2 [Moles/Vol] 31.0 mmol/L Normal 21.0-32.0 [facility] Comment on above: Performed By: #### L 501.4405, L500.2500, L501.4100, L501.9985 ####[facility] [address] [place], [address] Creatinine [Mass/Vol] 0.91 mg/dL Normal 0.70-1.30 [facility] Comment on above: Result Comment: The validity of the calculated GFR GFRAA in patients over70 years has not been determined. Clinical correlation isessential. Performed By: #### L 501.4405, L500.2500, L501.4100, L501.9985 ####[facility] [address] [place], [address] EST GFR - AA 103 mL/min Normal >60 [facility] Comment on above: Result Comment: Afri can Turkish GFR Calc Performed By: #### L 501.4405, L500.2500, L501.4100, L501.9985 ####[facility] [address] [place], [address] GAP 5 Normal 5-15 [facility] Comment on above: Performed By: #### L 501.4405, L500.2500, L501.4100, L501.9985 ####[facility] [address] [place], [address] GFR/1.73 sq M.predicted among non-blacks MDRD (S/P/Bld) [Vol rate/Area] 86 mL/min/{1.73_m2} Normal >60 [facility] Comment on above: Result Comment: Non- GFR Calc Performed By: #### L 501.4405, L500.2500, L501.4100, L501.9985 ####[facility] [address] [place], [address] Glucose [Mass/Vol] 111 mg/dL High 74-106 [facility] Comment on above: Result Comment: Fast ing Glucose result from 100 to 125 mg/dLsuggests IMPAIRED HOMEOSTASIS per A.D.A. criteria. Performed By: #### L 501.4405, L500.2500, L501.4100, L501.9985 ####[facility] [address] [place], [address] Potassium [Moles/Vol] 3.4 mmol/L Low 3.5-5.1 [facility] Comment on above: Performed By: #### L 501.4405, L500.2500, L501.4100, L501.9985 ####[facility] [address] [place], [address] Sodium [Moles/Vol] 142 mmol/L Normal 136-145 [facility] Comment on above: Performed By: #### L 501.4405, L500.2500, L501.4100, L501.9985 ####[facility] [address] [place], [address] Urea nitrogen [Mass/Vol] 24 mg/dL High 7-18 [facility] Comment on above: Performed By: #### L 501.4405, L500.2500, L501.4100, L501.9985 ####[facility] [address] [place], [address] Blood urea nitrogen (BUN)/cr eatinine ratioOrdered By: Natasha Gregory on 10-28-2024 Urea nitrogen/Creatinine [Mass ratio] 26.5 mg/mg High 10-20 [facility] Carbon dioxide measurementOr dered By: Natasha Gregory on 10-28-2024 CO2 [Moles/Vol] 31.0 mmol/L 21.0-32.0 [facility] Chloride measurementOrdered By: Natasha Gregory on 10-28-2024 Chloride [Moles/Vol] 105 mmol/L 98-107 [facility] Estimated glomerular filtrat ion rate (GFR) AmericanOrdered By: Natasha Gregory on 10-28-2024 Estimated GFR (MDRD) Amer 103 mL/min >60 [facility] Comment on above: GFR Calc Glomerular filtration rate ( GFR) estimationOrdered By: Natasha Gregory on 10-28-2024 Estimated GFR (MDRD) Non-Af Amer 86 mL/min >60 [facility] Comment on above: Non- GFR Calc Glucose measurementOrdered B y: Natasha Gregory on 10-28-2024 Glucose [Mass/Vol] 111 mg/dL High 74-106 [facility] Comment on above: Fasting Glucose resu lt from 100 to 125 mg/dL suggests IMPAIRED HOMEOSTASIS per A.D.A. criteria. Hemoglobin A1con 10-28-2024 HbA1c (Bld) [Mass fraction] 6.4 % High 3.8-5.6 [facility] Comment on above: Result Comment: Norm al < 5.7 % Prediabetic 5.7 - 6.4 % Diabetic >or= 6.5 % Please note range changes. Performed By: #### L 501.4405, L500.2500, L501.4100, L501.9985 ####[facility] [address] [place], [address] Hemoglobin A1c percentageOrd ered By: Natasha Gregory on 10-28-2024 HbA1c (Bld) [Mass fraction] 6.4 % High 3.8-5.6 [facility] Comment on above: Normal < 5.7 % Predi abetic 5.7 - 6.4 % Diabetic >or= 6.5 % Please note range changes. Laboratory - Chemistry and C hemistry - challengeOrdered By: Natasha Gregory on 10-28-2024 AST [Catalytic activity/Vol] 9 U/L Low 15-37 [facility] Potassium measurementOrdered By: Natasha Gregory on 10-28-2024 Potassium [Moles/Vol] 3.4 mmol/L Low 3.5-5.1 [facility] Serum anion gap measurementO rdered By: Natasha Gregory on 10-28-2024 Anion gap [Moles/Vol] 5 mmol/L 5-15 [facility] Serum or plasma alanine max otransferase (ALT) measurementOrdered By: Natasha Gregory on 10-28-2024 ALT [Catalytic activity/Vol] 8 U/L Low 16-61 [facility] Serum or plasma calcium walt urement (mass/volume)Ordered By: Natasha Gregory on 10-28-2024 Calcium [Mass/Vol] 9.3 mg/dL 8.5-10.1 [facility] Serum or plasma creatinine m easurement (mass/volume)Ordered By: Natasha Gregory on 10-28-2024 Creatinine [Mass/Vol] 0.91 mg/dL 0.70-1.30 [facility] Comment on above: The validity of the calculated GFR & GFRAA in patients over 70 years has not been determined. Clinical correlation is essential. Serum or plasma urea nitroge n measurement (mass/volume)Ordered By: Natasha Gregory on 10-28-2024 Urea nitrogen [Mass/Vol] 24 mg/dL High 7-18 [facility] Sodium levelOrdered By: Josefina Gregory on 10-28-2024 Sodium [Moles/Vol] 142 mmol/L 136-145 [facility] Emergency Department Summary on 10-12-2024 Emergency Department Summary Normal [facility] Ribs Uni Min 3V w/PA Cheston 10-12-2024 Ribs Uni Min 3V w/PA Chest Normal [facility] Chest PA and Lateralon 09-27 Chest PA and Lateral Normal [facility] Modified Barium Swallow Stud yon 09-20-2024 Modified Barium Swallow Study Normal [facility] MARIAH + Protein Elect, Serumon 09-05-2024 Albumin [Mass/Vol] 3.9 g/dL Normal 2.9-4.4 [facility] Comment on above: Order Comment: N Performed By: #### L 3100.3425, L3600.4030 ####[facility] [address] [place], [address] Albumin/Globulin [Mass ratio] 1.4 {ratio} Normal 0.7-1.7 [facility] Comment on above: Order Comment: N Performed By: #### L 3100.3425, L3600.4030 ####[facility] [address] [place], [address] GQOTM-2-DIQD 0.2 g/dL Normal 0.0-0.4 [facility] Comment on above: Order Comment: N Performed By: #### L 3100.3425, L3600.4030 ####[facility] [address] [place], [address] LBUIB-9-UIYW 0.8 g/dL Normal 0.4-1.0 [facility] Comment on above: Order Comment: N Performed By: #### L 3100.3425, L3600.4030 ####[facility] [address] [place], [address] BETA GLOBULIN 0.9 g/dL Normal 0.7-1.3 [facility] Comment on above: Order Comment: N Performed By: #### L 3100.3425, L3600.4030 ####[facility] [address] [place], [address] GAMMA GLOBULIN 0.9 g/dL Normal 0.4-1.8 [facility] Comment on above: Order Comment: N Performed By: #### L 3100.3425, L3600.4030 ####[facility] [address] [place], [address] Globulin (S) [Mass/Vol] 2.8 g/dL Normal 2.2-3.9 [facility] Comment on above: Order Comment: N Performed By: #### L 3100.3425, L3600.4030 ####[facility] [address] [place], [address] MARIAH RESULT,S Comment Normal . [facility] Comment on above: Order Comment: N Result Comment: No m onoclonality detected. Performed By: #### L 3100.3425, L3600.4030 ####[facility] [address] [place], [address] IMMUNOGLOB A QN 171 mg/dL Normal 61-437 [facility] Comment on above: Order Comment: N Performed By: #### L 3100.3425, L3600.4030 ####[facility] [address] [place], [address] IMMUNOGLOB G QN 946 mg/dL Normal 603-1613 [facility] Comment on above: Order Comment: N Performed By: #### L 3100.3425, L3600.4030 ####[facility] [address] [place], [address] IMMUNOGLOB M QN 100 mg/dL Normal 15-143 [facility] Comment on above: Order Comment: N Performed By: #### L 3100.3425, L3600.4030 ####[facility] [address] [place], [address] M-Jose Antonio Not Observed Normal Not Observed [facility] Comment on above: Order Comment: N Performed By: #### L 3100.3425, L3600.4030 ####[facility] [address] [place], [address] NOTE: Comment Normal . [facility] Comment on above: Order Comment: N Result Comment: Prot ein electrophoresis scan will follow via computer,mail, or tree warden delivery. Performed By: #### L 3100.3425, L3600.4030 ####[facility] [address] [place], [address] Protein [Mass/Vol] 6.7 g/dL Normal 6.0-8.5 [facility] Comment on above: Order Comment: N Performed By: #### L 3100.3425, L3600.4030 ####[facility] [address] [place], [address] Immunofixation Urineon 09-05 MARIAH Urine Comment Normal . [facility] Comment on above: Order Comment: N Result Comment: No m onoclonality detected.Performed at: - [address] [id number] Director: Vj Garcia PhD, Phone: [phone] Performed By: #### L 3100.3425, L3600.4030 ####[facility] [address] [place], [address] Neurology Visit Reporton Neurology Visit Report Normal [facility] Ankle min 3 Viewson 09-18-20 24 Ankle min 3 Views Normal [facility] Forearm 2 Viewson 08-07-2024 Forearm 2 Views Normal [facility] Wrist min 3 Viewson 08-07-20 24 Wrist min 3 Views Normal [facility] Basophil percentageOrdered B y: Vick Santo on 03-25-2024 Bilirubin [Mass/Vol] 0.70 mg/dL 0.20-1.00 [facility] Comment on above: For patients on eltr ombopag therapy, use of Dimension [place] TBIL is not recommended. Chloride [Moles/Vol] 104 mmol/L 98-107 [facility] Glucose [Mass/Vol] 260 mg/dL 74-106 [facility] Comment on above: Glucose result great er than or equal to 200 mg/dLsuggests DIABETES MELLITUS per A.D.A. criteria. Potassium [Moles/Vol] 3.9 mmol/L 3.5-5.1 [facility] Protein [Mass/Vol] 6.8 g/dL 6.4-8.2 [facility] Sodium [Moles/Vol] 138 mmol/L 136-145 [facility] - Chemistry and C hemistry - challengeOrdered By: Vick Santo on 03-25-2024 Albumin/Globulin [Mass ratio] 1.1 {ratio} 0.9-2.4 [facility] ALP [Catalytic activity/Vol] 62 U/L 45-117 [facility] ALT [Catalytic activity/Vol] 13 U/L 16-61 [facility] CO2 [Moles/Vol] 28.0 mmol/L 21.0-32.0 [facility] Globulin (S) [Mass/Vol] 3.3 g/dL 2.2-4.2 [facility] Urea nitrogen/Creatinine [Mass ratio] 23.8 mg/mg 10-20 [facility] No Panel InformationOrdered By: Vick Santo on 03-25-2024 Estimated GFR (MDRD) Amer 92 mL/min >60 [facility] Comment on above: GFR Calc Estimated GFR (MDRD) Non-Af Amer 76 mL/min >60 [facility] Comment on above: Non- GFR Calc Serum or plasma calcium walt urement (mass/volume)Ordered By: Vick Santo on 03-25-2024 Calcium [Mass/Vol] 8.9 mg/dL 8.5-10.1 [facility] Serum or plasma creatinine m easurement (mass/volume)Ordered By: Vick Santo on 03-25-2024 Creatinine [Mass/Vol] 1.01 mg/dL 0.70-1.30 [facility] Comment on above: The validity of the calculated GFR & GFRAA in patients over 70 years has not been determined. Clinical correlation is essential. Serum or plasma urea nitroge n measurement (mass/volume)Ordered By: Vick Santo on 03-25-2024 Urea nitrogen [Mass/Vol] 24 mg/dL 7-18 [facility] Thin prep Papanicolaou smear with manual screeningOrdered By: Vickrobinson Santo on 03-25-2024 Thin prep Papanicolaou smear with manual screening 3.5 g/dL 3.2-5.0 [facility] Thin prep Papanicolaou smear with manual screening 11 U/L 15-37 [facility] Thin prep Papanicolaou smear with manual screening 6 5-15 [facility] Whole blood hemoglobin A1c/t otal hemoglobin ratio (mass fraction)Ordered By: Vick Santo on 03-25-2024 HbA1c (Bld) [Mass fraction] 6.1 % 3.8-5.6 [facility] Comment on above: Normal < 5.7 % Predi abetic 5.7 - 6.4 % Diabetic >or= 6.5 % Please note range changes. Basophil percentageOrdered B y: Ja Cooley on 02-27-2024 Chloride [Moles/Vol] 106 mmol/L 98-107 [facility] Glucose [Mass/Vol] 94 mg/dL 74-106 [facility] Potassium [Moles/Vol] 3.9 mmol/L 3.5-5.1 [facility] Sodium [Moles/Vol] 141 mmol/L 136-145 [facility] Laboratory - Chemistry and C hemistry - challengeOrdered By: Ja Cooley on 02-27-2024 ALT [Catalytic activity/Vol] 14 U/L 16-61 [facility] CO2 [Moles/Vol] 28.0 mmol/L 21.0-32.0 [facility] Urea nitrogen/Creatinine [Mass ratio] 22.1 mg/mg 10-20 [facility] No Panel InformationOrdered By: Ja Cooley on 02-27-2024 Estimated GFR (MDRD) Amer 104 mL/min >60 [facility] Comment on above: GFR Calc Estimated GFR (MDRD) Non-Af Amer 86 mL/min >60 [facility] Comment on above: Non- GFR Calc Serum or plasma calcium walt urement (mass/volume)Ordered By: Ja Cooley on 02-27-2024 Calcium [Mass/Vol] 9.3 mg/dL 8.5-10.1 [facility] Serum or plasma creatinine m easurement (mass/volume)Ordered By: Ja Cooley on 02-27-2024 Creatinine [Mass/Vol] 0.90 mg/dL 0.70-1.30 [facility] Comment on above: The validity of the calculated GFR & GFRAA in patients over 70 years has not been determined. Clinical correlation is essential. Serum or plasma urea nitroge n measurement (mass/volume)Ordered By: Ja Cooley on 02-27-2024 Urea nitrogen [Mass/Vol] 20 mg/dL 7-18 [facility] Thin prep Papanicolaou smear with manual screeningOrdered By: Ja Cooley on 02-27-2024 Thin prep Papanicolaou smear with manual screening 15 U/L 15-37 [facility] Thin prep Papanicolaou smear with manual screening 7 5-15 [facility] Whole blood hemoglobin A1c/t otal hemoglobin ratio (mass fraction)Ordered By: Ja Cooley on 02-27-2024 HbA1c (Bld) [Mass fraction] 6.1 % 3.8-5.6 [facility] Comment on above: Normal < 5.7 % Predi abetic 5.7 - 6.4 % Diabetic >or= 6.5 % Please note range changes. Absolute lymphocyte countOrd ered By: Ja Cooley on 12-15-2023 Lymphocytes Auto (Unsp spec) [#/Vol] 3.13 10*3/uL 0.83-4.51 [facility] Automated lymphocyte count a s percentage of total leukocytesOrdered By: Ja Cooley on 12-15-2023 Lymphocytes/100 WBC Auto (Unsp spec) 38.1 % 19-41 [facility] Basophil percentageOrdered B y: Ja Cooley on 12-15-2023 Basophils/100 WBC (Bld) 0.7 % 0-1 [facility] Bilirubin [Mass/Vol] 0.80 mg/dL 0.20-1.00 [facility] Comment on above: For patients on eltr ombopag therapy, use of Dimension [place] TBIL is not recommended. Chloride [Moles/Vol] 107 mmol/L 98-107 [facility] Cholesterol [Mass/Vol] 136 mg/dL <200 [facility] Comment on above: <200 mg/dL Desirable 200-240 mg/dL Borderline >240 mg/dL High Risk Eosinophils/100 WBC (Bld) 1.8 % 0-5 [facility] Glucose [Mass/Vol] 87 mg/dL 74-106 [facility] Hemoglobin (Bld) [Mass/Vol] 15.3 g/dL 13.0-16.5 [facility] Monocytes/100 WBC (Bld) 10.5 % 0-10 [facility] Neutrophils (Bld) [#/Vol] 4.0 10*3/uL 2.0-7.7 [facility] Neutrophils/100 WBC (Bld) 48.4 % 47-70 [facility] Potassium [Moles/Vol] 3.7 mmol/L 3.5-5.1 [facility] Protein [Mass/Vol] 7.2 g/dL 6.4-8.2 [facility] Sodium [Moles/Vol] 140 mmol/L 136-145 [facility] Triglyceride [Mass/Vol] 127 mg/dL <199 [facility] Comment on above: The drugs N-Acetylcy steine and Metamizole may falsely depress this assay.Serum Triglycerides Reference Interval Normal <150 mg/dL Borderline high 150 - 199 mg/dL High 200 - 499 mg/dL Very High > or = 500 mg/dL WBC (Bld) [#/Vol] 8.2 10*3/uL 4.4-11.0 [facility] Determination of erythrocyte mean corpuscular volume (MCV)Ordered By: Ja Cooley on 12-15-2023 MCV (RBC) [Entitic vol] 90.0 fL 80-94 [facility] Erythrocyte distribution wid th ratioOrdered By: Ja Cooley on 12-15-2023 Erythrocyte distribution width (RBC) [Ratio] 13.2 % 11.6-14.6 [facility] Erythrocyte distribution wid th standard deviationOrdered By: Ja Cooley on 12-15-2023 Erythrocyte distribution width (RBC) [Entitic vol] 43.5 fL 35.1-43.9 [facility] Hematocrit Auto (Bld) [Volum e fraction]Ordered By: Ja Cooley on 12-15-2023 Hematocrit (Bld) [Volume fraction] 46.1 % 40-54 [facility] High density lipoprotein (HD L) measurementOrdered By: Ja Cooley on 12-15-2023 Cholesterol in HDL (Body fld) [Mass/Vol] 50 mg/dL >40 [facility] Comment on above: The drugs N-Acetylcy steine and Metamizole may falsely depress this assay. Reference Range HDL <40 mg/dL Low HDL Cholesterol HDL >or= 60 mg/dL High HDL Cholesterol Immature granulocytes/100 WB C Auto (Bld)Ordered By: Ja Cooley on 12-15-2023 Immature granulocytes/100 WBC (Bld) 0.500 % 0.0-0.9 [facility] Comment on above: IG% - Immature Granu locytes (promyelocytes, myelocytes and metamyelocytes) > 1% indicates that a LEFT SHIFT is Present. Laboratory - Chemistry and C hemistry - challengeOrdered By: Ja Cooley on 12-15-2023 Albumin/Globulin [Mass ratio] 1.1 {ratio} 0.9-2.4 [facility] ALP [Catalytic activity/Vol] 67 U/L 45-117 [facility] ALT [Catalytic activity/Vol] 12 U/L 16-61 [facility] CO2 [Moles/Vol] 29.0 mmol/L 21.0-32.0 [facility] Globulin (S) [Mass/Vol] 3.5 g/dL 2.2-4.2 [facility] Magnesium [Mass/Vol] 1.9 mg/dL 1.6-2.6 [facility] Urea nitrogen/Creatinine [Mass ratio] 19.3 mg/mg 10-20 [facility] Laboratory - Hematology and Cell countsOrdered By: Ja Cooley on 12-15-2023 MCH (RBC) [Entitic mass] 29.9 pg 27.0-32.0 [facility] MCHC (RBC) [Mass/Vol] 33.2 g/dL 32-36 [facility] Nucleated RBC/100 WBC (Bld) [Ratio] 0 % 0-5 [facility] Platelets (Bld) [#/Vol] 240 10*3/uL 150-450 [facility] Low density lipoprotein (LDL ) cholesterol measurementOrdered By: Ja Cooley on 12-15-2023 Cholesterol in LDL (Body fld) [Moles/Vol] 61 mg/dL 0-130 [facility] No Panel InformationOrdered By: Ja Cooley on 12-15-2023 Estimated GFR (MDRD) Amer 101 mL/min >60 [facility] Comment on above: GFR Calc Estimated GFR (MDRD) Non-Af Amer 83 mL/min >60 [facility] Comment on above: Non- GFR Calc Platelet mean volume [facility] ker (Bld) [Entitic vol]Ordered By: Ja Cooley on 12-15-2023 Platelet mean volume (Bld) [Entitic vol] 11.1 fL 6.2-12.0 [facility] RBC Auto (Bld) [#/Vol]Ordere d By: Ja Cooley on 12-15-2023 RBC (Bld) [#/Vol] 5.12 10*6/uL 4.6-6.2 [facility] Serum or plasma calcium walt urement (mass/volume)Ordered By: Ja Cooley on 12-15-2023 Calcium [Mass/Vol] 9.2 mg/dL 8.5-10.1 [facility] Serum or plasma creatinine m easurement (mass/volume)Ordered By: Ja Cooley on 12-15-2023 Creatinine [Mass/Vol] 0.93 mg/dL 0.70-1.30 [facility] Comment on above: The validity of the calculated GFR & GFRAA in patients over 70 years has not been determined. Clinical correlation is essential. Serum or plasma thyroid stim ulating hormone (TSH) measurement (units/volume)Ordered By: Ja Cooley on 12-15-2023 TSH Qn 1.60 uIU/mL 0.358-3.74 [facility] Serum or plasma urea nitroge n measurement (mass/volume)Ordered By: Ja Cooley on 12-15-2023 Urea nitrogen [Mass/Vol] 18 mg/dL 7-18 [facility] Thin prep Papanicolaou smear with manual screeningOrdered By: Ja Cooley on 12-15-2023 Thin prep Papanicolaou smear with manual screening 3.7 g/dL 3.2-5.0 [facility] Thin prep Papanicolaou smear with manual screening 14 U/L 15-37 [facility] Thin prep Papanicolaou smear with manual screening 4 5-15 [facility] Very low density lipoprotein (VLDL) cholesterol measurementOrdered By: Ja Cooley on 12-15-2023 Cholesterol in VLDL Calc [Moles/Vol] 25 mg/dL 5-40 [facility] Whole blood hemoglobin A1c/t otal hemoglobin ratio (mass fraction)Ordered By: Ja Cooley on 12-15-2023 HbA1c (Bld) [Mass fraction] 5.9 % 3.8-5.6 [facility] Comment on above: Normal < 5.7 % Predi abetic 5.7 - 6.4 % Diabetic >or= 6.5 % Please note range changes. Albumin Elph [Mass/Vol]Order ed By: Vick Santo on 11-23-2023 Albumin [Mass/Vol] 3.6 g/dL 2.9-4.4 [facility] Basophil percentageOrdered B y: Vick Santo on 11-23-2023 Basophil percentage Comment: . [facility] Comment on above: Presence of monoclon al protein is unclear at this time. Suggestrepeat in 3 to 6 months if clinically indicated.Performed at: [facility] [id number] Director: Vj Garcia PhD, Phone: [phone] Interpretation of serum or p lasma protein pattern by immunofixation (narrative resultOrdered By: Vick Santo on 11-23-2023 Protein Fractions Immunofixation Blanco [Interp] Not Observed g/dL Not Observed [facility] No Panel InformationOrdered By: Vick Santo on 11-23-2023 Addendum Document Comment . [facility] Comment on above: Protein electrophore sis scan will follow via computer,mail, or tree warden delivery. Serum [id number] measu rement by electrophoresisOrdered By: Vick Santo on 11-23-2023 Alpha 1 globulin Elph [Mass/Vol] 0.4 g/dL 0.0-0.4 [facility] Alpha 1 globulin Elph [Mass/Vol] 1.0 g/dL 0.4-1.0 [facility] Serum globulin measurement ( mass/volume)Ordered By: Vick Santo on 11-23-2023 Globulin (S) [Mass/Vol] 3.1 g/dL 2.2-3.9 [facility] Serum or plasma IgA measurem ent (mass/volume)Ordered By: Vick Santo on 11-23-2023 IgA [Mass/Vol] 167 mg/dL 61-437 [facility] Serum or plasma IgG measurem ent (mass/volume)Ordered By: Vick Santo on 11-23-2023 IgG [Mass/Vol] 849 mg/dL 603-1613 [facility] Serum or plasma IgM measurem ent (mass/volume)Ordered By: Vick Santo on 11-23-2023 IgM [Mass/Vol] 91 mg/dL 15-143 [facility] Serum or plasma beta globuli n measurement by electrophoresis (mass/volume)Ordered By: Vick Santo on 11-23-2023 Beta globulin Elph [Mass/Vol] 1.0 g/dL 0.7-1.3 [facility] Serum or plasma gamma globul in measurement by electrophoresis (mass/volume)Ordered By: Vick Santo on 11-23-2023 Gamma globulin Elph [Mass/Vol] 0.7 g/dL 0.4-1.8 [facility] Serum or plasma immunoelectr ophoresis interpretation (nominal result)Ordered By: Vick Santo on 11-23-2023 Interpretation IEP [Interp] Comment . [facility] Comment on above: No monoclonality det ected. Thin prep Papanicolaou smear with manual screeningOrdered By: Vick Mcgregordominguez on 11-23-2023 Thin prep Papanicolaou smear with manual screening 1.2 0.7-1.7 [facility] Total protein bloodOrdered B y: Vick Mcgregordominguez on 11-23-2023 Protein [Mass/Vol] 6.7 g/dL 6.0-8.5 [facility] Basophil percentageOrdered B y: Natasha Gregory on 10-31-2023 Chloride [Moles/Vol] 107 mmol/L 98-107 [facility] Glucose [Mass/Vol] 102 mg/dL 74-106 [facility] Comment on above: Fasting Glucose resu lt from 100 to 125 mg/dL suggests IMPAIRED HOMEOSTASIS per A.D.A. criteria. Potassium [Moles/Vol] 3.6 mmol/L 3.5-5.1 [facility] Sodium [Moles/Vol] 142 mmol/L 136-145 [facility] Laboratory - Chemistry and C hemistry - challengeOrdered By: Natasha Gregory on 10-31-2023 ALT [Catalytic activity/Vol] 11 U/L 16-61 [facility] CO2 [Moles/Vol] 28.0 mmol/L 21.0-32.0 [facility] Urea nitrogen/Creatinine [Mass ratio] 22.7 mg/mg 10-20 [facility] No Panel InformationOrdered By: Natasha Gregory on 10-31-2023 Estimated GFR (MDRD) Amer 101 mL/min >60 [facility] Comment on above: GFR Calc Estimated GFR (MDRD) Non-Af Amer 84 mL/min >60 [facility] Comment on above: Non- GFR Calc Serum or plasma calcium walt urement (mass/volume)Ordered By: Natasha Gregory on 10-31-2023 Calcium [Mass/Vol] 8.8 mg/dL 8.5-10.1 [facility] Serum or plasma creatinine m easurement (mass/volume)Ordered By: Natasha Gregory on 10-31-2023 Creatinine [Mass/Vol] 0.93 mg/dL 0.70-1.30 [facility] Comment on above: The validity of the calculated GFR & GFRAA in patients over 70 years has not been determined. Clinical correlation is essential. Serum or plasma urea nitroge n measurement (mass/volume)Ordered By: Natasha Gregory on 10-31-2023 Urea nitrogen [Mass/Vol] 21 mg/dL 7-18 [facility] Thin prep Papanicolaou smear with manual screeningOrdered By: Natasha Gregory on 10-31-2023 Thin prep Papanicolaou smear with manual screening 10 U/L 15-37 [facility] Thin prep Papanicolaou smear with manual screening 7 5-15 [facility] Whole blood hemoglobin A1c/t otal hemoglobin ratio (mass fraction)Ordered By: Natasha Gregory on 10-31-2023 HbA1c (Bld) [Mass fraction] 5.7 % 3.8-5.6 [facility] Comment on above: Normal < 5.7 % Predi abetic 5.7 - 6.4 % Diabetic >or= 6.5 % Please note range changes. Basophil percentageOrdered B y: Natasha Gregory on 08-03-2023 Chloride [Moles/Vol] 108 mmol/L 98-107 [facility] Cholesterol [Mass/Vol] 127 mg/dL <200 [facility] Comment on above: <200 mg/dL Desirable 200-240 mg/dL Borderline >240 mg/dL High Risk Glucose [Mass/Vol] 66 mg/dL 74-106 [facility] Potassium [Moles/Vol] 3.5 mmol/L 3.5-5.1 [facility] Sodium [Moles/Vol] 139 mmol/L 136-145 [facility] Triglyceride [Mass/Vol] 101 mg/dL <199 [facility] [...] 08-03-2023 ALT [Catalytic activity/Vol] 11 U/L 16-61 [facility] CO2 [Moles/Vol] 26.0 mmol/L 21.0-32.0 [facility] Urea nitrogen/Creatinine [Mass ratio] 19.8 mg/mg 10-20 [facility] No Panel InformationOrdered By: Natasha Gregory on 08-03-2023 Urine Microalbumin/Creatinine Ratio 14.9 mg/g CRE <30 [facility] Estimated GFR (MDRD) Amer 97 mL/min >60 [facility] Comment on above: GFR Calc Estimated GFR (MDRD) Non-Af Amer 81 mL/min >60 [facility] Comment on above: Non- GFR Calc Thyroid Stimulating Hormone (TSH) 1.96 uIU/mL 0.358-3.74 [facility] Serum or plasma calcium walt urement (mass/volume)Ordered By: Natasha Gregory on 08-03-2023 Calcium [Mass/Vol] 9.0 mg/dL 8.5-10.1 [facility] Serum or plasma cholesterol in HDL measurement (mass/volume)Ordered By: Natasha Gregory on 08-03-2023 Cholesterol in HDL [Mass/Vol] 49 mg/dL >40 [facility] Comment on above: The drugs N-Acetylcy steine and Metamizole may falsely depress this assay. Reference Range HDL <40 mg/dL Low HDL Cholesterol HDL >or= 60 mg/dL High HDL Cholesterol Serum or plasma cholesterol in VLDL measurement (mass/volume)Ordered By: Natasha Gregory on 08-03-2023 Cholesterol in VLDL [Mass/Vol] 20 mg/dL 5-40 [facility] Serum or plasma creatinine m easurement (mass/volume)Ordered By: Natasha Gregory on 08-03-2023 Creatinine [Mass/Vol] 0.96 mg/dL 0.70-1.30 [facility] Comment on above: The validity of the calculated GFR & GFRAA in patients over 70 years has not been determined. Clinical correlation is essential. Serum or plasma low density lipoprotein (LDL) cholesterol measurement (mass/volume)Ordered By: Natasha Gregory on 08-03-2023 Cholesterol in LDL [Mass/Vol] 58 mg/dL 0-130 [facility] Serum or plasma urea nitroge n measurement (mass/volume)Ordered By: Natasha Gregory on 08-03-2023 Urea nitrogen [Mass/Vol] 19 mg/dL 7-18 [facility] Thin prep Papanicolaou smear with manual screeningOrdered By: Natasha Gregory on 08-03-2023 Thin prep Papanicolaou smear with manual screening 18.2 mg/L NO RANGE EST. [facility] Thin prep Papanicolaou smear with manual screening 9 U/L 15-37 [facility] Thin prep Papanicolaou smear with manual screening 5 5-15 [facility] Urine creatinine measurement (mass/volume)Ordered By: Natasha Gregory on 08-03-2023 Creatinine (U) [Mass/Vol] 122.00 mg/dL NO RANGE EST. [facility] Whole blood hemoglobin A1c/t otal hemoglobin ratio (mass fraction)Ordered By: Natasha Gregory on 08-03-2023 HbA1c (Bld) [Mass fraction] 6.2 % 3.8-5.6 [facility] Comment on above: Normal < 5.7 % Predi abetic 5.7 - 6.4 % Diabetic >or= 6.5 % Please note range changes. Basophil percentageOrdered B y: Dr. Santo on 05-09-2023 WBC (Bld) [#/Vol] 10.2 10*3/uL 4.4-11.0 [facility] Blood erythrocytes count (nu mber/volume)Ordered By: Dr. Santo on 05-09-2023 RBC (Bld) [#/Vol] 4.60 10*6/uL 4.6-6.2 [facility] Blood hemoglobin measurement (mass/volume)Ordered By: Dr. Santo on 05-09-2023 Hemoglobin (Bld) [Mass/Vol] 14.1 g/dL 13.0-16.5 [facility] Blood platelet mean volumeOr dered By: Dr. Santo on 05-09-2023 Platelet mean volume (Bld) [Entitic vol] 10.7 fL 6.2-12.0 [facility] Determination of erythrocyte mean corpuscular volume (MCV)Ordered By: Dr. Santo on 05-09-2023 MCV (RBC) [Entitic vol] 90.9 fL 80-94 [facility] Hematocrit Auto (Bld) [Volum e fraction]Ordered By: Dr. Santo on 05-09-2023 Hematocrit (Bld) [Volume fraction] 41.8 % 40-54 [facility] Laboratory - Chemistry and C hemistry - challengeOrdered By: Dr. Santo on 05-09-2023 Cobalamin (Vitamin B12) [Mass/Vol] 281 pg/mL 211-911 [facility] Laboratory - Hematology and Cell countsOrdered By: Dr. Santo on 05-09-2023 Erythrocyte distribution width (RBC) [Entitic vol] 44.1 fL 35.1-43.9 [facility] Erythrocyte distribution width (RBC) [Ratio] 13.3 % 11.6-14.6 [facility] MCH (RBC) [Entitic mass] 30.7 pg 27.0-32.0 [facility] MCHC Auto (RBC) [Mass/Vol]Or dered By: Dr. Santo on 05-09-2023 MCHC (RBC) [Mass/Vol] 33.7 g/dL 32-36 [facility] No Panel InformationOrdered By: Vick Santo on 05-09-2023 Free Lambda Light Chains, Quant 20.2 mg/L 5.7-26.3 [facility] Whole Blood Vitamin B1 Level 118.1 nmol/L 66.5-200.0 [facility] Comment on above: Performed at: [address] [id number] Director: Vj Garcia PhD, Phone: [phone] at: [facility] Lab[address] [id number] Director: Sherine Mendez MD, Phone: [phone] No Panel InformationOrdered By: Dr. Santo on 05-09-2023 Thyroid Stimulating Hormone (TSH) 2.11 uIU/mL 0.358-3.74 [facility] Platelets bldOrdered By: Dr. Santo on 05-09-2023 Platelets (Bld) [#/Vol] 285 10*3/uL 150-450 [facility] Serum immunoglobulin kappa l ight chains/immunoglobulin lambda light chains mass ratioOrdered By: Vick Santo on 05-09-2023 Immunoglobulin light chains.kappa/Immunoglobul in light chains.lambda (S) [Mass ratio] 1.69 0.26-1.65 [facility] Serum or plasma folate measu rement (mass/volume)Ordered By: Dr. Santo on 05-09-2023 Folate [Mass/Vol] 11.40 ng/mL 3.1-55.4 [facility] Serum or plasma immunoglobul in kappa light chains measurement (mass/volume)Ordered By: Vick Santo on 05-09-2023 Immunoglobulin light chains.kappa [Mass/Vol] 34.1 mg/L 3.3-19.4 [facility] Basophil percentageOrdered B y: Dr. Gregory on 05-01-2023 Chloride [Moles/Vol] 107 mmol/L 98-107 [facility] Glucose [Mass/Vol] 98 mg/dL 74-106 [facility] Potassium [Moles/Vol] 3.8 mmol/L 3.5-5.1 [facility] Sodium [Moles/Vol] 140 mmol/L 136-145 [facility] Laboratory - Chemistry and C hemistry - challengeOrdered By: Dr. Gregory on 05-01-2023 ALT [Catalytic activity/Vol] 13 U/L 16-61 [facility] CO2 [Moles/Vol] 26.0 mmol/L 21.0-32.0 [facility] Urea nitrogen/Creatinine [Mass ratio] 23.4 mg/mg 10-20 [facility] No Panel InformationOrdered By: Dr. Gregory on 05-01-2023 Estimated GFR (MDRD) Amer 95 mL/min >60 [facility] Comment on above: GFR Calc Estimated GFR (MDRD) Non-Af Amer 78 mL/min >60 [facility] Comment on above: Non- GFR Calc Serum or plasma calcium walt urement (mass/volume)Ordered By: Dr. Gregory on 05-01-2023 Calcium [Mass/Vol] 9.0 mg/dL 8.5-10.1 [facility] Serum or plasma creatinine m easurement (mass/volume)Ordered By: Dr. Gregory on 05-01-2023 Creatinine [Mass/Vol] 0.98 mg/dL 0.70-1.30 [facility] Comment on above: The validity of the calculated GFR & GFRAA in patients over 70 years has not been determined. Clinical correlation is essential. Serum or plasma urea nitroge n measurement (mass/volume)Ordered By: Dr. Gregory on 05-01-2023 Urea nitrogen [Mass/Vol] 23 mg/dL 7-18 [facility] Thin prep Papanicolaou smear with manual screeningOrdered By: Dr. Gregory on 05-01-2023 Thin prep Papanicolaou smear with manual screening 12 U/L 15-37 [facility] Thin prep Papanicolaou smear with manual screening 7 5-15 [facility] Whole blood hemoglobin A1c/t otal hemoglobin ratio (mass fraction)Ordered By: Dr. Gregory on 05-01-2023 HbA1c (Bld) [Mass fraction] 6.2 % 3.8-5.6 [facility] Comment on above: Normal < 5.7 % Predi abetic 5.7 - 6.4 % Diabetic >or= 6.5 % Please note range changes. Absolute lymphocyte countOrd ered By: Dr. Cooley on 02-21-2023 Lymphocytes Auto (Unsp spec) [#/Vol] 3.36 10*3/uL 0.83-4.51 [facility] Basophil percentageOrdered B y: Dr. Cooley on 02-21-2023 Basophils/100 WBC (Bld) 0.7 % 0-1 [facility] Bilirubin [Mass/Vol] 0.60 mg/dL 0.20-1.00 [facility] Comment on above: For patients on eltr ombopag therapy, use of Dimension [place] TBIL is not recommended. Chloride [Moles/Vol] 104 mmol/L 98-107 [facility] Cholesterol [Mass/Vol] 133 mg/dL <200 [facility] Comment on above: <200 mg/dL Desirable 200-240 mg/dL Borderline >240 mg/dL High Risk Eosinophils/100 WBC (Bld) 1.5 % 0-5 [facility] Glucose [Mass/Vol] 232 mg/dL 74-106 [facility] Comment on above: Glucose result great er than or equal to 200 mg/dLsuggests DIABETES MELLITUS per A.D.A. criteria. Neutrophils (Bld) [#/Vol] 5.4 10*3/uL 2.0-7.7 [facility] Neutrophils/100 WBC (Bld) 53.2 % 47-70 [facility] Potassium [Moles/Vol] 4.0 mmol/L 3.5-5.1 [facility] Protein [Mass/Vol] 6.8 g/dL 6.4-8.2 [facility] Sodium [Moles/Vol] 137 mmol/L 136-145 [facility] Triglyceride [Mass/Vol] 117 mg/dL <199 [facility] Comment on above: The drugs N-Acetylcy steine and Metamizole may falsely depress this assay.Serum Triglycerides Reference Interval Normal <150 mg/dL Borderline high 150 - 199 mg/dL High 200 - 499 mg/dL Very High > or = 500 mg/dL WBC (Bld) [#/Vol] 10.1 10*3/uL 4.4-11.0 [facility] Blood erythrocytes count (nu mber/volume)Ordered By: Dr. Cooley on 02-21-2023 RBC (Bld) [#/Vol] 4.56 10*6/uL 4.6-6.2 [facility] Blood hemoglobin measurement (mass/volume)Ordered By: Dr. Cooley on 02-21-2023 Hemoglobin (Bld) [Mass/Vol] 14.0 g/dL 13.0-16.5 [facility] Blood lymphocytes/100 leukoc ytesOrdered By: Dr. Cooley on 02-21-2023 Lymphocytes/100 WBC (Bld) 33.3 % 19-41 [facility] Blood monocytes/100 leukocyt esOrdered By: Dr. Cooley on 02-21-2023 Monocytes/100 WBC (Bld) 10.4 % 0-10 [facility] Blood platelet mean volumeOr dered By: Dr. Cooley on 02-21-2023 Platelet mean volume (Bld) [Entitic vol] 10.2 fL 6.2-12.0 [facility] Determination of erythrocyte mean corpuscular volume (MCV)Ordered By: Dr. Cooley on 02-21-2023 MCV (RBC) [Entitic vol] 92.5 fL 80-94 [facility] Hematocrit Auto (Bld) [Volum e fraction]Ordered By: Dr. Cooley on 02-21-2023 Hematocrit (Bld) [Volume fraction] 42.2 % 40-54 [facility] Laboratory - Chemistry and C hemistry - challengeOrdered By: Dr. Cooley on 02-21-2023 ALP [Catalytic activity/Vol] 68 U/L 45-117 [facility] ALT [Catalytic activity/Vol] 19 U/L 16-61 [facility] CO2 [Moles/Vol] 27.0 mmol/L 21.0-32.0 [facility] Globulin (S) [Mass/Vol] 3.4 g/dL 2.2-4.2 [facility] Magnesium [Mass/Vol] 1.9 mg/dL 1.6-2.6 [facility] Urea nitrogen/Creatinine [Mass ratio] 27.1 mg/mg 10-20 [facility] Laboratory - Hematology and Cell countsOrdered By: Dr. Cooley on 02-21-2023 Erythrocyte distribution width (RBC) [Entitic vol] 47.2 fL 35.1-43.9 [facility] Erythrocyte distribution width (RBC) [Ratio] 14.0 % 11.6-14.6 [facility] Immature granulocytes/100 WBC (Bld) 0.900 % 0.0-0.9 [facility] Comment on above: IG% - Immature Granu locytes (promyelocytes, myelocytes and metamyelocytes) > 1% indicates that a LEFT SHIFT is Present. MCH (RBC) [Entitic mass] 30.7 pg 27.0-32.0 [facility] Nucleated RBC/100 WBC (Bld) [Ratio] 0 % 0-5 [facility] MCHC Auto (RBC) [Mass/Vol]Or dered By: Dr. Cooley on 02-21-2023 MCHC (RBC) [Mass/Vol] 33.2 g/dL 32-36 [facility] No Panel InformationOrdered By: Dr. Cooley on 02-21-2023 Estimated GFR (MDRD) Amer 93 mL/min >60 [facility] Comment on above: GFR Calc Estimated GFR (MDRD) Non-Af Amer 77 mL/min >60 [facility] Comment on above: Non- GFR Calc Thyroid Stimulating Hormone (TSH) 1.59 uIU/mL 0.358-3.74 [facility] Urine Microalbumin/Creatinine Ratio 10.3 mg/g CRE <30 [facility] Platelets bldOrdered By: Dr. Cooley on 02-21-2023 Platelets (Bld) [#/Vol] 330 10*3/uL 150-450 [facility] Serum or plasma albumin walt urement (mass/volume)Ordered By: Dr. Cooley on 02-21-2023 Albumin [Mass/Vol] 3.4 g/dL 3.2-5.0 [facility] Serum or plasma albumin/glob ulin mass ratioOrdered By: Dr. Cooley on 02-21-2023 Albumin/Globulin [Mass ratio] 1.0 {ratio} 0.9-2.4 [facility] Serum or plasma calcium walt urement (mass/volume)Ordered By: Dr. Cooley on 02-21-2023 Calcium [Mass/Vol] 9.1 mg/dL 8.5-10.1 [facility] Serum or plasma cholesterol in HDL measurement (mass/volume)Ordered By: Dr. Cooley on 02-21-2023 Cholesterol in HDL [Mass/Vol] 52 mg/dL >40 [facility] Comment on above: The drugs N-Acetylcy steine and Metamizole may falsely depress this assay. Reference Range HDL <40 mg/dL Low HDL Cholesterol HDL >or= 60 mg/dL High HDL Cholesterol Serum or plasma cholesterol in VLDL measurement (mass/volume)Ordered By: Dr. Cooley on 02-21-2023 Cholesterol in VLDL [Mass/Vol] 23 mg/dL 5-40 [facility] Serum or plasma creatinine m easurement (mass/volume)Ordered By: Dr. Cooley on 02-21-2023 Creatinine [Mass/Vol] 1.00 mg/dL 0.70-1.30 [facility] Comment on above: The validity of the calculated GFR & GFRAA in patients over 70 years has not been determined. Clinical correlation is essential. Serum or plasma low density lipoprotein (LDL) cholesterol measurement (mass/volume)Ordered By: Dr. Cooley on 02-21-2023 Cholesterol in LDL [Mass/Vol] 58 mg/dL 0-130 [facility] Serum or plasma urea nitroge n measurement (mass/volume)Ordered By: Dr. Cooley on 02-21-2023 Urea nitrogen [Mass/Vol] 27 mg/dL 7-18 [facility] Thin prep Papanicolaou smear with manual screeningOrdered By: Dr. Cooley on 02-21-2023 Thin prep Papanicolaou smear with manual screening 9 U/L 15-37 [facility] Thin prep Papanicolaou smear with manual screening 6 5-15 [facility] Thin prep Papanicolaou smear with manual screening 11.9 mg/L NO RANGE EST. [facility] Urine creatinine measurement (mass/volume)Ordered By: Dr. Cooley on 02-21-2023 Creatinine (U) [Mass/Vol] 115.00 mg/dL NO RANGE EST. [facility] Whole blood hemoglobin A1c/t otal hemoglobin ratio (mass fraction)Ordered By: Dr. Cooley on 02-21-2023 HbA1c (Bld) [Mass fraction] 6.4 % 3.8-5.6 [facility] Comment on above: Normal < 5.7 % Predi abetic 5.7 - 6.4 % Diabetic >or= 6.5 % Please note range changes. Anabelle 02-14-2023 GUADALUPEN Telephone (SOHAN) LAINEYFAUSTINALUIS ARMANDO Ríos ([id number]) 1945 M Date Time Provider Department 02/14/23 JAYLYN NIEVES SEAN During your visit today, we recorded the following information about you: Raeann Vizcarra 02/14/2023 2:29 PM Signed Patient's spouse (Brennen) called requesting to speak to medical staff regarding Luis Armando's condition. Brennen reports Luis Armando has had an increase in falls/weakness that they believe to be related to Parkinson's. Brennen also states that Luis Armando has become more aggressive. Brennen is very concerned. Please call her at [phone]. Raeann Harrison RN 02/14/2023 3:05 PM Signed Received voicemail from patients' on Mon02/14/2023 2:28 PM Transcript below: This is Brennen Griffith. My phone number is [phone]. I'm calling for my Luis Armando Griffith. His date of is 1945. I'm directing this to Dr. Nieves's nurse. Luis Armando fell Monday morning and he broke his [...] really bad or it's gonna be a group home and I don't wanna do that so please give me a call at your earliest convenience. Thank you. Abbey. Message shared with KA for further guidance. YVONNE Naik, RN February 14, 2023 3:04 PM Mary Harrison RN 02/14/2023 3:08 PM Signed message sent to patient and for further assessment. Awaiting reply. YVONNE Naik, MISAEL February 14, 2023 3:08 PM Mary Harrison RN 02/15/2023 9:21 AM Signed Patient [...] cancelled. Updates shared with MD CAR. YVONNE Naki, RN February 15, 2023 9:21 AM Jaylyn [...] seeing PCP and PT as already ordered. Mary Harrison RN 02/15/2023 10:00 AM Addendum Shared [...] Naik, RN February 15, 2023 9:58 AM Mary Harrison RN 02/16/2023 1:20 PM Signed Shared recent MC message with CAR. She confirms that patient needs to be seen by PCP for work up of underling issues and no medication changes will be made at this time. As expressed potential difficulty with my chart messaging, returned call. Spoke with Luis Armando and shared CAR's update. He verbalized understanding and RN reiterated guidance to be seen by FRANCHESKA Webb or a member of his team to decipher underlying causes. Luis Armando shared that after the ortho visit yesterday, he will be in the boot for two weeks until the imaging is repatriated and then they will know more. No further issues at this time. CAR notified. YVONNE Naki, RN February 16, 2023 1:20 PM Allergies [...] not included)... Normal [facility] CNPNon 01-10-2023 CNPN Telephone (NRMDN) LUIS ARMANDO GRIFFITH ([id number]) 1945 M Date Time Provider Department 01/10/23 JAYLYN NIEVES During your visit today, we recorded the following information about you: Grace Sibley RN 01/10/2023 4:24 PM Signed Voicemail received January 10, 2023 2134 My name is Brennen Griffith. My phone number is [phone]. My 's name is Luis Armando Griffith. He is a patient of Dr. [...] what we need to do to help Luis Armando. Thank you. Abbey moreno now. Call to [...] is Brennen Griffith. My phone number is [phone]. This is in regard to Luis Armando Griffith. I'm calling to return a call. [...] 50 MCG, 2,000 UNIT, GUMMIES) - fluticasone yamvqie-acbcdwtxzcgy-fq lanterol (TRELEGY ELLIPTA) 200-62.5-25 mcg powder inhaler [...] KAREN PARRA on 01/13/23 Normal [facility] Basophil percentageOrdered B y: Dr. Gregory on 01-04-2023 Chloride [Moles/Vol] 106 mmol/L 98-107 [facility] Cholesterol [Mass/Vol] 139 mg/dL <200 [facility] Comment on above: <200 mg/dL Desirable 200-240 mg/dL Borderline >240 mg/dL High Risk Glucose [Mass/Vol] 55 mg/dL 74-106 [facility] Potassium [Moles/Vol] 3.9 mmol/L 3.5-5.1 [facility] Sodium [Moles/Vol] 143 mmol/L 136-145 [facility] Triglyceride [Mass/Vol] 133 mg/dL <199 [facility] [...] 01-04-2023 ALT [Catalytic activity/Vol] 12 U/L 16-61 [facility] CO2 [Moles/Vol] 27.0 mmol/L 21.0-32.0 [facility] Urea nitrogen/Creatinine [Mass ratio] 25.1 mg/mg 10-20 [facility] No Panel InformationOrdered By: Dr. Gregory on 01-04-2023 Estimated GFR (MDRD) Amer 98 mL/min >60 [facility] Comment on above: GFR Calc Estimated GFR (MDRD) Non-Af Amer 81 mL/min >60 [facility] Comment on above: Non- GFR Calc Serum or plasma calcium walt urement (mass/volume)Ordered By: Dr. Gregory on 01-04-2023 Calcium [Mass/Vol] 8.9 mg/dL 8.5-10.1 [facility] Serum or plasma cholesterol in HDL measurement (mass/volume)Ordered By: Dr. Gregory on 01-04-2023 Cholesterol in HDL [Mass/Vol] 44 mg/dL >40 [facility] Comment on above: The drugs N-Acetylcy steine and Metamizole may falsely depress this assay. Reference Range HDL <40 mg/dL Low HDL Cholesterol HDL >or= 60 mg/dL High HDL Cholesterol Serum or plasma cholesterol in VLDL measurement (mass/volume)Ordered By: Dr. Gregory on 01-04-2023 Cholesterol in VLDL [Mass/Vol] 27 mg/dL 5-40 [facility] Serum or plasma creatinine m easurement (mass/volume)Ordered By: Dr. Gregory on 01-04-2023 Creatinine [Mass/Vol] 0.96 mg/dL 0.70-1.30 [facility] Comment on above: The validity of the calculated GFR & GFRAA in patients over 70 years has not been determined. Clinical correlation is essential. Serum or plasma low density lipoprotein (LDL) cholesterol measurement (mass/volume)Ordered By: Dr. Gregory on 01-04-2023 Cholesterol in LDL [Mass/Vol] 68 mg/dL 0-130 [facility] Serum or plasma urea nitroge n measurement (mass/volume)Ordered By: Dr. Gregory on 01-04-2023 Urea nitrogen [Mass/Vol] 24 mg/dL 7-18 [facility] Thin prep Papanicolaou smear with manual screeningOrdered By: Dr. Gregory on 01-04-2023 Thin prep Papanicolaou smear with manual screening 16 U/L 15-37 [facility] Thin prep Papanicolaou smear with manual screening 10 5-15 [facility] Whole blood hemoglobin A1c/t otal hemoglobin ratio (mass fraction)Ordered By: Dr. Gregory on 01-04-2023 HbA1c (Bld) [Mass fraction] 6.3 % 3.8-5.6 [facility] Comment on above: Normal < 5.7 % Predi abetic 5.7 - 6.4 % Diabetic >or= 6.5 % Please note range changes. CNOVon 12-12-2022 CNOV Office Visit (NRMDN) LUIS ARMANDO GRIFFITH ([id number]) 1945 M Date Time Provider Department 12/12/22 2:00 PM GARY RUIZ During your visit today, we recorded the following information about you: Weight Height 118.3 kg 1.778 m Gary Ruiz APRN.CNP 12/13/2022 10:48 PM Signed [facility] - FOLLOW UP EVALUATION Ja Cooley MD [address] [facility] [address] Dear Ja Cooley MD: I had the [...] Flowsheet Row OT/PT/Speech Visit from 10/04/2022 in [facility] OT/PT/Speech Visit from 08/25/2022 in [facility] [...] Current Outpa (more content not included)... Normal [facility] Anabelle 10-10-2022 CNPN Telephone (NRMDN) LUIS ARMANDO GRIFFITH ([id number]) 1945 M Date Time Provider Department 10/10/22 JAYLYN NIEVES During your visit today, we recorded the following information about you: Mary Harrison RN 10/10/2022 2:45 PM Signed Received voicemail from patient on Mon10/10/2022 9:09 AM Transcript below: Morning this is Luis Armando Griffith and my phone number is [phone]. I calling to find out if there's [...] Voicemail left directing patient to a detailed Manifact message. Requested reply via MC or RCTO. Provided office number. Message shared with covering provider as KA is OOO. Mary Harrison, YVONNE, RN October 10, 2022 2:44 PM Allergies [...] tablet by mouth twice daily. - fluticasone hxwzwsg-lfixhcbnkwcp-nw lanterol (TRELEGY ELLIPTA) 200-62.5-25 mcg powder inhaler [...] 08/11/2022 Imbalance [R26.89] 08/11/2022 Encounter Status:Closed by MARY HARRISON on 10/10/22 [facility] CNTHERAPYon 10-04-2022 CNTHERAPY OT/PT/Speech Visit (PTMDRG) LUIS ARMANDO GRIFFITH ([id number]) 1945 M Date Time Provider Department 10/04/22 11:30 AM WILLIS RYDER Date Time Provider Department Center 10/04/2022 11:30 AM [id number] RYDER [facility] Reason for Visit: Physical Therapy [...] 50 MCG, 2,000 UNIT, GUMMIES) - fluticasone hoixitk-irbpiczxjkkr-yw lanterol (TRELEGY ELLIPTA) 200-62.5-25 mcg powder inhaler [...] 80 mg by mouth once daily. Normal [facility] Basophil percentageOrdered B y: Dr. Gregory on 09-16-2022 Chloride [Moles/Vol] 105 mmol/L 98-107 [facility] Glucose [Mass/Vol] 142 mg/dL 74-106 [facility] Comment on above: Fasting Glucose resu lt greater than or equal to 126 mg/dL suggests DIABETES MELLITUS per A.D.A. criteria. Potassium [Moles/Vol] 3.8 mmol/L 3.5-5.1 [facility] Sodium [Moles/Vol] 137 mmol/L 136-145 [facility] Laboratory - Chemistry and C hemistry - challengeOrdered By: Dr. Gregory on 09-16-2022 ALT [Catalytic activity/Vol] 13 U/L 16-61 [facility] CO2 [Moles/Vol] 24.0 mmol/L 21.0-32.0 [facility] Urea nitrogen/Creatinine [Mass ratio] 24.0 mg/mg 10- [facility] No Panel InformationOrdered By: Dr. Gregory on 09-16-2022 Estimated GFR (MDRD) Amer 89 mL/min >60 [facility] Comment on above: GFR Calc Estimated GFR (MDRD) Non-Af Amer 73 mL/min >60 [facility] Comment on above: Non- GFR Calc Thyroid Stimulating Hormone (TSH) 1.71 uIU/mL 0.358-3.74 [facility] Serum or plasma calcium walt urement (mass/volume)Ordered By: Dr. Gregory on 09-16-2022 Calcium [Mass/Vol] 9.4 mg/dL 8.5-10.1 [facility] Serum or plasma creatinine m easurement (mass/volume)Ordered By: Dr. Gregory on 09-16-2022 Creatinine [Mass/Vol] 1.04 mg/dL 0.70-1.30 [facility] Comment on above: The validity of the calculated GFR & GFRAA in patients over 70 years has not been determined. Clinical correlation is essential. Serum or plasma urea nitroge n measurement (mass/volume)Ordered By: Dr. Gregory on 09-16-2022 Urea nitrogen [Mass/Vol] 25 mg/dL 7-18 [facility] Thin prep Papanicolaou smear with manual screeningOrdered By: Dr. Gregory on 09-16-2022 Thin prep Papanicolaou smear with manual screening 13 U/L 15-37 [facility] Thin prep Papanicolaou smear with manual screening 8 5-15 [facility] Whole blood hemoglobin A1c/t otal hemoglobin ratio (mass fraction)Ordered By: Dr. Gregory on 09-16-2022 HbA1c (Bld) [Mass fraction] 6.5 % 3.8-5.6 [facility] Comment on above: Normal < 5.7 % Predi abetic 5.7 - 6.4 % Diabetic >or= 6.5 % Please note range changes. CNTHERAPYon 09-15-2022 CNTHERAPY OT/PT/Speech Visit (PTMDRG) LUIS ARMANDO GRIFFITH ([id number]) 1945 M Date Time Provider Department 09/15/22 4:00 PM WILLIS RYDER PTMDRG Date Time Provider Department Center 09/15/2022 4:00 PM [id number] RYDER [facility] Reason for Visit: Physical Therapy [...] tablet by mouth twice daily. - fluticasone ufzpzhv-annflqjhpnoj-mi lanterol (TRELEGY ELLIPTA) 200-62.5-25 mcg powder inhaler [...] Take 80 mg by mouth once daily. [facility] 09-12-2022 [facility] Telephone (NREUS2) LUIS ARMANDO GRIFFITH ([id number]) 1945 M Date Time Provider Department 09/12/22 JAYLYN NIEVES NREUS2 During your visit today, we recorded the following information about you: Lena Gallo [facility] [place]/12/2022 2:37 PM Signed NI PHONE NAME OF CALLER: Brennen RELATIONSHIP TO PATIENT: spouse PATIENT ID'D BY NAME/: yes REASON FOR CALL: States that his PD symptoms are worsening and she would like to speak with Stefania. CALLBACK #: [phone] OK TO LEAVE MESSAGE: ok only on this number - do not leave at home number LAST FUV: 08/04/22 with CAR Harrison RN 09/13/2022 12:32 PM Signed Returned call to Brennen. No reply, left detailed message requesting RCTO. Provided office number for call back. Awaiting reply. YVONNE Naik, RN September 13, 2022 12:31 PM Mary Harrison RN 09/14/2022 2:09 PM Signed returned [...] as well as CT scan tomorrow. Daughter Sabrina aware and concerned as well. She is [...] Cymbalta to 30 mg if he's agreeable. Mary Harrison RN 09/14/2022 2:42 PM Signed Called daughter Sabrina and shared update. She will confer with her mother and father and update the office as needed. YVONNE Naik, RN September 14, 2022 2:42 PM Mary Harrison RN 09/15/2022 4:41 PM Signed Patient [...] for RCTO and option to message via Manifact. YVONNE Naik, RN September 16, 2022 8:48 [...] not included)... Normal [facility] CNTHERAPYon 08-25-2022 CNTHERAPY OT/PT/Speech Visit (PTMDRG) LUIS ARMANDO GRIFFITH ([id number]) 1945 M Date Time Provider Department 08/25/22 5:30 PM WILLIS RYDERG Date Time Provider Department Center 08/25/2022 5:30 PM [id number] RYDER [facility] Reason for Visit: Physical Therapy [...] tablet by mouth twice daily. - fluticasone wyeoncc-buyqlxzrdxyc-mw lanterol (TRELEGY ELLIPTA) 200-62.5-25 mcg powder inhaler [...] Take 80 mg by mouth once daily. [facility] CNTHERAPYon 08-11-2022 CNTHERAPY OT/PT/Speech Visit (PTMDRG) LUIS ARMANDO GRIFFITH ([id number]) 1945 M Date Time Provider Department 08/11/22 1:00 PM WILLIS RYDER Date Time Provider Department Center 08/11/2022 1:00 PM [id number] RYDER [facility] Reason for Visit: PT Eval [107] Patient Education [91] Primary Visit Diagnosis:Leg weakness, [...] tablet by mouth twice daily. - fluticasone jnzoteb-xcfrfpvzklmk-ca lanterol (TRELEGY ELLIPTA) 200-62.5-25 mcg powder inhaler [...] 80 mg by mouth once daily. Normal [facility] 08-04-2022 CNOV Office Visit (NRMDN) LUIS ARMANDO GRIFFITH ([id number]) 1945 M Date Time Provider Department 08/04/22 2:00 PM JAYLYN NIEVES During your visit today, we recorded the following information about you: Pulse Respiration Blood pressure 107/minute 16/minute 109/86 Jaylyn Nieves MD 08/04/2022 5:35 PM Signed [facility] - FOLLOW UP EVALUATION Ja Cooley MD [address] [facility] [address] I had the pleasure of seeing Mr. Griffith for follow up today. He is a 77 year old right-handed male with a history of tremor since 2019. He is seen with his and daughter, Sabrina. Subjective Previous Plan-03/29/2022 Visit: Resume Sinemet 1.5 [...] 1 tablet by mouth twice daily. fluticasone roiveoh-wxroedkfyfhp-yi lanterol (TRELEGY ELLIPTA) 200-62.5-25 mcg powder inhaler Inhale 1 Puff as instructed once daily. aspirin, enteric coated (ASPIRIN, ENTERIC COATED) 81 mg EC tablet Take 81 mg by mouth once daily. tamsulosin (FLOMAX) 0.4 mg Take 0.4 m (more content not included)... Normal [facility] No Panel Informationon 08-01 Prostate Specific Antigen Screen 5.11 ng/mL 0.00-4.00 [facility] Work Phone: Comment on above: This test was perfor med using the TPSA assay method for theKaraz chemistry system. Values obtained with differentassay methods cannot be used interchangably.When changing PSA assays in the course of monitoring apatient, additional sequential testing should be carriedout to confirm baseline values. Anabelle 07-21-2022 [facility] LAINEYLUIS ARMANDO WEEMS ([id number]) 1945 M Date Time Provider Department 07/21/22 JAYLYN NIEVES During your visit today, we recorded the following information about you: Mary Harrison RN 07/21/2022 1:09 PM Signed Received voicemail from patient's on Rosalia 07/21/2022 10:52 AM Transcript below: Kaila my name is Brennen Griffith. My 's name is Luis Armando Griffith. He is a patient of Dr. Nieves'bassam. My phone number is [phone]. I'm calling to speak to somebody regarding Luis Armando. His Parkinson's symptoms are becoming much much [...] Updates shared with MD CAR AND JANY, DEPARTMENT CHAIRPERSON. If any guidance is suggested, RN will contact with feedback. Mary Harrison, MSN, RN July 21, 2022 12:42 PM Allergies [...] Gait instability [R26.81] 03/18/2022 Encounter Status:Closed by MARY HARRISON on 07/21/22 Normal [facility] No Panel Informationon 06-21 Urine Microalbumin/Creatinine Ratio 12.4 mg/g CRE <30 [facility] Work Phone: Thin prep Papanicolaou smear with manual screeningon 06-21-2022 Thin prep Papanicolaou smear with manual screening 17.8 mg/L NO RANGE EST. [facility] Work Phone: Urine creatinine measurement (mass/volume)on 06-21-2022 Creatinine (U) [Mass/Vol] 144.00 mg/dL NO RANGE EST. [facility] Work Phone: Basophil percentageon 2021 Chloride [Moles/Vol] 102 mmol/L 98-107 [facility] Work Phone: Cholesterol [Mass/Vol] 140 mg/dL <200 [facility] Work Phone: Comment on above: <200 mg/dL Desirable 200-240 mg/dL Borderline >240 mg/dL High Risk Glucose [Mass/Vol] 224 mg/dL 74-106 [facility] Work Phone: Comment on above: Glucose result great er than or equal to 200 mg/dLsuggests DIABETES MELLITUS per A.D.A. criteria. Potassium [Moles/Vol] 3.9 mmol/L 3.5-5.1 [facility] Work Phone: Sodium [Moles/Vol] 137 mmol/L 136-145 [facility] Work Phone: Triglyceride [Mass/Vol] 161 mg/dL [...] 06-20-2022 ALT [Catalytic activity/Vol] 21 U/L 16-61 [facility] Work Phone: CO2 [Moles/Vol] 29.0 mmol/L 21.0-32.0 [facility] Work Phone: Urea nitrogen/Creatinine [Mass ratio] 21.7 mg/mg 10-20 [facility] Work Phone: No Panel Informationon 06-20 Estimated GFR (MDRD) Amer 75 mL/min >60 [facility] Work Phone: Comment on above: GFR Calc Estimated GFR (MDRD) Non-Af Amer 62 mL/min >60 [facility] Work Phone: Comment on above: Non- GFR Calc Serum or plasma calcium walt urement (mass/volume)on 06-20-2022 Calcium [Mass/Vol] 8.8 mg/dL 8.5-10.1 [facility] Work Phone: Serum or plasma cholesterol in HDL measurement (mass/volume)on 06-20-2022 Cholesterol in HDL [Mass/Vol] 47 mg/dL >40 [facility] Work Phone: Comment on above: The drugs N-Acetylcy steine and Metamizole may falsely depress this assay. Reference Range HDL <40 mg/dL Low HDL Cholesterol HDL >or= 60 mg/dL High HDL Cholesterol Serum or plasma cholesterol in VLDL measurement (mass/volume)on 06-20-2022 Cholesterol in VLDL [Mass/Vol] 32 mg/dL 5-40 [facility] Work Phone: Serum or plasma creatinine m easurement (mass/volume)on 06-20-2022 Creatinine [Mass/Vol] 1.20 mg/dL 0.70-1.30 [facility] Work Phone: Comment on above: The validity of the calculated GFR & GFRAA in patients over 70 years has not been determined. Clinical correlation is essential. Serum or plasma low density lipoprotein (LDL) cholesterol measurement (mass/volume)on 06-20-2022 Cholesterol in LDL [Mass/Vol] 61 mg/dL 0-130 [facility] Work Phone: Serum or plasma urea nitroge n measurement (mass/volume)on 06-20-2022 Urea nitrogen [Mass/Vol] 26 mg/dL 7-18 [facility] Work Phone: Thin prep Papanicolaou smear with manual screeningon 06-20-2022 Thin prep Papanicolaou smear with manual screening 17 U/L 15-37 [facility] Work Phone: Thin prep Papanicolaou smear with manual screening 6 5-15 [facility] Work Phone: Whole blood hemoglobin A1c/t otal hemoglobin ratio (mass fraction)on 06-20-2022 HbA1c (Bld) [Mass fraction] 6.7 % 3.8-5.6 [facility] Work Phone: Comment on above: Normal < 5.7 % Predi abetic 5.7 - 6.4 % Diabetic >or= 6.5 % Please note range changes. Absolute lymphocyte counton 04-25-2022 Lymphocytes Auto (Unsp spec) [#/Vol] 3.24 10*3/uL 0.83-4.51 [facility] Work Phone: Basophil percentageon 2021 Basophil percentage 0-5 SEEN /hpf 0-5 [facility] Work Phone: Basophils/100 WBC (Bld) 1.2 % 0-1 [facility] Work Phone: Bilirubin [Mass/Vol] 0.70 mg/dL 0.20-1.00 [facility] Work Phone: Comment on above: For patients on eltr ombopag therapy, use of Dimension [place] TBIL is not recommended. Chloride [Moles/Vol] 103 mmol/L 98-107 [facility] Work Phone: Cholesterol [Mass/Vol] 138 mg/dL <200 [facility] Work Phone: Comment on above: <200 mg/dL Desirable 200-240 mg/dL Borderline >240 mg/dL High Risk Eosinophils/100 WBC (Bld) 2.6 % 0-5 [facility] Work Phone: Glucose [Mass/Vol] 168 mg/dL 74-106 [facility] Work Phone: Comment on above: Fasting Glucose resu lt greater than or equal to 126 mg/dL suggests DIABETES MELLITUS per A.D.A. criteria. Neutrophils (Bld) [#/Vol] 4.2 10*3/uL 2.0-7.7 [facility] Work Phone: Neutrophils/100 WBC (Bld) 46.5 % 47-70 [facility] Work Phone: Potassium [Moles/Vol] 3.9 mmol/L 3.5-5.1 [facility] Work Phone: Protein [Mass/Vol] 7.3 g/dL 6.4-8.2 [facility] Work Phone: Sodium [Moles/Vol] 137 mmol/L 136-145 [facility] Work Phone: Triglyceride [Mass/Vol] 193 mg/dL <199 [facility] Work Phone: Comment on above: The drugs N-Acetylcy steine and Metamizole may falsely depress this assay.Serum Triglycerides Reference Interval Normal <150 mg/dL Borderline high 150 - 199 mg/dL High 200 - 499 mg/dL Very High > or = 500 mg/dL WBC (Bld) [#/Vol] 8.9 10*3/uL 4.4-11.0 [facility] Work Phone: Bilirubin Test strip Ql (U)o n 04-25-2022 Bilirubin Ql (U) Negative Negative [facility] Work Phone: Blood erythrocytes count (nu mber/volume)on 04-25-2022 RBC (Bld) [#/Vol] 4.66 10*6/uL 4.6-6.2 [facility] Work Phone: Blood hemoglobin measurement (mass/volume)on 04-25-2022 Hemoglobin (Bld) [Mass/Vol] 14.6 g/dL 13.0-16.5 [facility] Work Phone: Blood lymphocytes/100 leukoc yteson 04-25-2022 Lymphocytes/100 WBC (Bld) 36.4 % 19-41 [facility] Work Phone: Blood monocytes/100 leukocyt eson 04-25-2022 Monocytes/100 WBC (Bld) 12.6 % 0-10 [facility] Work Phone: Blood platelet mean volumeon 04-25-2022 Platelet mean volume (Bld) [Entitic vol] 10.1 fL 6.2-12.0 [facility] Work Phone: Determination of erythrocyte mean corpuscular volume (MCV)on 04-25-2022 MCV (RBC) [Entitic vol] 93.3 fL 80-94 [facility] Work Phone: Hematocrit Auto (Bld) [Volum e fraction]on 04-25-2022 Hematocrit (Bld) [Volume fraction] 43.5 % 40-54 [facility] Work Phone: Ketones Test strip Ql (U)on 04-25-2022 Ketones Ql (U) 5 mg/dl Negative [facility] Work Phone: Laboratory - Chemistry and C hemistry - challengeon 04-25-2022 ALP [Catalytic activity/Vol] 62 U/L 45-117 [facility] Work Phone: ALT [Catalytic activity/Vol] 25 U/L 16-61 [facility] Work Phone: CO2 [Moles/Vol] 25.0 mmol/L 21.0-32.0 [facility] Work Phone: Cobalamin (Vitamin B12) [Mass/Vol] 1930 pg/mL 211-911 [facility] Work Phone: Globulin (S) [Mass/Vol] 3.6 g/dL 2.2-4.2 [facility] Work Phone: Urea nitrogen/Creatinine [Mass ratio] 19.8 mg/mg 10-20 [facility] Work Phone: Laboratory - Hematology and Cell countson 04-25-2022 Erythrocyte distribution width (RBC) [Entitic vol] 46.3 fL 35.1-43.9 [facility] Work Phone: Erythrocyte distribution width (RBC) [Ratio] 13.6 % 11.6-14.6 [facility] Work Phone: Immature granulocytes/100 WBC (Bld) 0.700 % 0.0-0.9 [facility] Work Phone: Comment on above: IG% - Immature Granu locytes (promyelocytes, myelocytes and metamyelocytes) > 1% indicates that a LEFT SHIFT is Present. MCH (RBC) [Entitic mass] 31.3 pg 27.0-32.0 [facility] Work Phone: Nucleated RBC/100 WBC (Bld) [Ratio] 0 % 0-5 [facility] Work Phone: MCHC Auto (RBC) [Mass/Vol]on 04-25-2022 MCHC (RBC) [Mass/Vol] 33.6 g/dL 32-36 [facility] Work Phone: Mucus LM Ql (Urine sed)on Mucus Ql (Urine sed) 0 SEEN /hpf [facility] Work Phone: Nitrite Test strip Ql (U)on 04-25-2022 Nitrite Ql (U) Negative Negative [facility] Work Phone: No Panel Informationon 04-25 Estimated GFR (MDRD) Amer 87 mL/min >60 [facility] Work Phone: Comment on above: GFR Calc Estimated GFR (MDRD) Non-Af Amer 72 mL/min >60 [facility] Work Phone: Comment on above: Non- GFR Calc Thyroid Stimulating Hormone (TSH) 2.14 uIU/mL 0.358-3.74 [facility] Work Phone: Vitamin D 25-Hydroxy 59.3 ng/mL [facility] Work Phone: Comment on above: Vitamin D 25(OH) Sta tus Range Deficiency <20 ng/mL (50nmol/L) Insufficiency 20 - 30 ng/mL (50 - 75 nmol/L) Sufficiency 30 - 100 ng/mL (75 - 250 nmol/L) Toxicity >100 ng/mL (>250 nmol/L) Platelets bldon 04-25-2022 Platelets (Bld) [#/Vol] 264 10*3/uL 150-450 [facility] Work Phone: Protein Test strip Ql (U)on 04-25-2022 Protein Ql (U) Negative Negative [facility] Work Phone: Serum or plasma albumin walt urement (mass/volume)on 04-25-2022 Albumin [Mass/Vol] 3.7 g/dL 3.2-5.0 [facility] Work Phone: Serum or plasma albumin/glob ulin mass ratioon 04-25-2022 Albumin/Globulin [Mass ratio] 1.0 {ratio} 0.9-2.4 [facility] Work Phone: Serum or plasma calcium walt urement (mass/volume)on 04-25-2022 Calcium [Mass/Vol] 9.1 mg/dL 8.5-10.1 [facility] Work Phone: Serum or plasma cholesterol in HDL measurement (mass/volume)on 04-25-2022 Cholesterol in HDL [Mass/Vol] 43 mg/dL >40 [facility] Work Phone: Comment on above: The drugs N-Acetylcy steine and Metamizole may falsely depress this assay. Reference Range HDL <40 mg/dL Low HDL Cholesterol HDL >or= 60 mg/dL High HDL Cholesterol Serum or plasma cholesterol in VLDL measurement (mass/volume)on 04-25-2022 Cholesterol in VLDL [Mass/Vol] 39 mg/dL 5-40 [facility] Work Phone: Serum or plasma creatinine m easurement (mass/volume)on 04-25-2022 Creatinine [Mass/Vol] 1.06 mg/dL 0.70-1.30 [facility] Work Phone: Comment on above: The validity of the calculated GFR & GFRAA in patients over 70 years has not been determined. Clinical correlation is essential. Serum or plasma folate measu rement (mass/volume)on 04-25-2022 Folate [Mass/Vol] 13.80 ng/mL 3.1-55.4 [facility] Work Phone: Comment on above: Slight Hemolysis, Re sult may be falsely increased. Serum or plasma low density lipoprotein (LDL) cholesterol measurement (mass/volume)on 04-25-2022 Cholesterol in LDL [Mass/Vol] 56 mg/dL 0-130 [facility] Work Phone: Serum or plasma urea nitroge n measurement (mass/volume)on 04-25-2022 Urea nitrogen [Mass/Vol] 21 mg/dL 7-18 [facility] Work Phone: Squamous epithelial cells de tection in urine sediment by light microscopyon 04-25-2022 Epithelial cells.squamous LM Ql (Urine sed) 0 SEEN /hpf 0-5 [facility] Work Phone: Thin prep Papanicolaou smear with manual screeningon 04-25-2022 Thin prep Papanicolaou smear with manual screening 17 U/L 15-37 [facility] Work Phone: Thin prep Papanicolaou smear with manual screening 9 5-15 [facility] Work Phone: Urine blood detectionon 06-0 RBC Ql (U) Negative Negative [facility] Work Phone: RBC Ql (U) 0-5 SEEN /hpf 0-5 [facility] Work Phone: Urine clarityon 04-25-2022 Clarity (U) Clear Clear [facility] Work Phone: Urine color determinationon 04-25-2022 Color (U) Yellow Yellow [facility] Work Phone: Urine glucose detectionon Glucose Ql (U) Normal mg/dl Normal [facility] Work Phone: Urine leukocyte esterase det ection by dipstickon 04-25-2022 Leukocyte esterase Test strip Ql (U) Negative Negative [facility] Work Phone: Urine pHon 04-25-2022 pH (U) 6.0 [pH] 5.0 - 8.0 [facility] Work Phone: Urine sediment bacteria coun t by microscopy (number/high power field)on 04-25-2022 Bacteria LM.HPF (Urine sed) [#/Area] RARE /hpf None Seen [facility] Work Phone: Urine specific gravity measu rementon 04-25-2022 Specific gravity (U) [Rel density] 1.020 1.002-1.030 [facility] Work Phone: Urobilinogen Auto test strip Ql (U)on 04-25-2022 Urobilinogen Ql (U) 4 mg/dl Normal [facility] Work Phone: Whole blood hemoglobin A1c/t otal hemoglobin ratio (mass fraction)on 04-25-2022 HbA1c (Bld) [Mass fraction] 6.6 % 3.8-5.6 [facility] Work Phone: Comment on above: Normal < 5.7 % Predi abetic 5.7 - 6.4 % Diabetic >or= 6.5 % Please note range changes. Laboratory - Drug toxicology on 04-07-2022 Amphetamines Ql (U) Negative <1000 ng/mL [facility] Work Phone: Benzodiazepines Ql (U) Negative < 200 ng[facility]mL [facility]: Cannabinoids Screen Ql (U) Negative < 50 ng/mL [facility] Work Phone: Cocaine Ql (U) Negative < 300 ng/mL [facility] Work Phone: Opiates Ql (U) Negative < 300 ng/mL [facility] Work Phone: No Panel Informationon 04-07 MDMA (Ecstasy) Screen Negative < 500 ng/mL [facility] Work Phone: Miscellaneous Test See [facility]: Comment on above: [id number] 6+OXYCODONE-B UND (ng/mL) DRUG RESULT SCREEN CUTOFF____ Amphetamines,Urine Negative ng/mL 1000 Amphetamine test includes Amphetamine and Methamphetamine.Barbiturates Negative ng/mL 200Benzodiazepines Negative ng/mL 200Cannabinoid Negative ng/mL 20Cocaine (Metab) Negative ng/mL 300Opiates Negative ng/mL 300 Opiates test includes Codeine, Morphine, Hydromorphone, Hydrocodone. Oxycodone/Oxymorphone,Urine Positive ng/mL 300 Test includes Oxydodone and Oxymorphone. Oxycodone PositiveOxycodone Conf,MS,UR 666 ng/mL 300 Oxymorphone Negative 300 TESTING PERFORMED AT [facility]. ORIGINAL REPORT ON FILE IN LAB CONTAINS ADDITIONAL TEST SITE INFORMATION. Urine Barbiturates Screen Negative < 200 ng/m L [facility] Work Phone: Urine Drug Screen Comment [facility] Work Phone: Comment on above: CONFIRMATORY TESTING [...] Urine Methadone Screen Negative < 300 ng/mL [facility] Work Phone: Urine phencyclidine (PCP) de tectionon 04-07-2022 Phencyclidine Ql (U) Negative < 25 ng/mL [facility] Work Phone: CNOVon 03-29-2022 CNOV Office Visit (SPEMML ) LUIS ARMANDO GRIFFITH ([id number]) 1945 M Date Time Provider Department 03/29/22 1:30 PM MICHELLE RO During your visit today, we recorded the following information about you: Michelle Ro CCC-COMPUTER SYSTEMS ANALYST 03/29/2022 3:59 PM Signed Episode Visit Count: 1 Therapist That Will Oversee The Plan Of Care: Andrade Start of Care Date: 03/29/22 Onset Date: 11/20/20 Plan of Care Certification Date: 03/29/22 Patient Identified by Name and Date of : Yes [facility] SPEECH and SWALLOW [...] position 20-30 minutes following all oral intake COMPUTER SYSTEMS ANALYST Recommendations: Swallowing Precautions;Discontinue Speech Therapy Results and [...] discussed and agreed upon by patient/family. SUBJECTIVE: Luis Armando Griffith is a 76 year old male [...] MBS (pt reports had MBS done at [facility] last year, which pt was told 'he did fine' and no recommendations for follow up ST or diet modifications made) Clinical Swallow [place] Swallow Protocol: Fail Fail: Coughing episodes (x1 throat clear delayed post trial of water) Oral Pharyngeal Swallow Assessment: Within Functional Limits Except Preparatory / Oral Phase: Within Functional Limits Except Mastication: (pt with close attention to mastication-requires extended time) A-P Transit: Suspect impairment Oral Residue: Mildly Impaired Pharyng (more content not included)... Normal [facility] Office Visit (NRMDN) LUIS ARMANDO GRIFFITH ([id number]) 1945 M Date Time Provider Department 03/29/22 12:30 PM JAYLYN NIEVES During your visit today, we recorded the following information about you: Jaylyn Nieves MD 03/29/2022 7:35 PM Signed [facility] - Multidisciplinary Clinic Jaylyn Nieves [address] [facility] [address] [facility] [id number] Ja Cooley MD [address] [facility] [address] [facility] [address] I had the pleasure of seeing Mr. 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 Started on Sinemet which caused side effects at 6/day. At last visit we tried to taper off it but he experiences return of tremors and confusion at dose of 3/day. Will increase Sinemet (more content not included)... Normal [facility] CNTHERAPYon 05-10-2022 CNTHERAPY OT/PT/Speech Visit (PTMDRG) LUIS ARMANDO GRIFFITH ([id number]) 1945 M Date Time Provider Department 03/29/22 3:30 PM MAINE MEDEL PTMDRG Date Time Provider Department Center 03/29/2022 3:30 PM [id number] MEDEL PTMDRG [facility] Reason for Visit: PT Eval [867] Patient Education [91] PT Discharge [872] Primary Visit Diagnosis:Parkinson disease (HCC) [G20] Allergies [...] Take 80 mg by mouth once daily. [facility] CNTHERAPY OT/PT/Speech Visit (OTMMC) LUIS ARMANDO GRIFFITH ([id number]) 1945 M Date Time Provider Department 03/29/22 2:30 PM HEENA ROMANO [facility] Date Time Provider Department Center 03/29/2022 2:30 PM [id number], DIANDRA [facility] Reason for Visit: OT EVAL [748] OT [...] Take 80 mg by mouth once daily. [facility] [facility] [facility] LUIS ARMANDO GRIFFITH ([id number]) 1945 M Date Time Provider Department 03/23/22 JAYLYN NIEVES During your visit today, we recorded the following information about you: Cali Haas MA 03/23/2022 10:50 AM Signed I called patient to get him pre-roomed for his upcoming appointment. I had to leave a voicemail for a returned call. If patient calls back please transfer call to myself or a clinical staff member to complete this process. Thanks! Cali Haas MA Allergies As of Date: 03/23/2022 Noted Allergy Reaction REGLAN (METOCLOPRAMIDE) 08/25/2021 1 - Mental Status Change Comments: psychosis Date Reviewed: 03/17/2022 Reviewed by: Cali Haas MA - Fully Assessed Reason for [...] Gait instability [R26.81] 03/18/2022 Encounter Status:Closed by CALI HAAS on 03/23/22 [facility] REGULOOVon 03-17-2022 CNOV Office Visit (NRMDN) LUIS ARMANDO GRIFFITH ([id number]) 1945 M Date Time Provider Department 03/17/22 3:00 PM JAYLYN NIEVES During your visit today, we recorded the following information about you: Pulse Blood pressure Weight Height 101/minute 120/77 125.8 kg 1.778 m Jaylyn Nieves MD 03/18/2022 4:12 PM Signed [facility] - FOLLOW UP EVALUATION No referring provider defined for this encounter. Ja Cooley MD [address] [facility] [address] [facility] [address] I had the pleasure of seeing Mr. [...] to be helpful Interval History Seen at [facility] for surgical evaluation. SDR was too [...] not included)... Normal [facility] Basophil percentageon 2021 Chloride [Moles/Vol] 105 mmol/L 98-107 [facility] Work Phone: Glucose [Mass/Vol] 102 mg/dL 74-106 [facility] Work Phone: Comment on above: Fasting Glucose resu lt from 100 to 125 mg/dL suggests IMPAIRED HOMEOSTASIS per A.D.A. criteria. Potassium [Moles/Vol] 3.5 mmol/L 3.5-5.1 [facility] Work Phone: Sodium [Moles/Vol] 138 mmol/L 136-145 [facility] Work Phone: Laboratory - Chemistry and C hemistry - challengeon 03-10-2022 ALT [Catalytic activity/Vol] 21 U/L 16-61 [facility] Work Phone: CO2 [Moles/Vol] 26.0 mmol/L 21.0-32.0 [facility] Work Phone: Urea nitrogen/Creatinine [Mass ratio] 24.3 mg/mg 10-20 [facility] Work Phone: No Panel Informationon 03-10 Estimated GFR (MDRD) Amer 79 mL/min >60 [facility] Work Phone: Comment on above: GFR Calc Estimated GFR (MDRD) Non-Af Amer 65 mL/min >60 [facility] Work Phone: Comment on above: Non- GFR Calc Serum or plasma calcium walt urement (mass/volume)on 03-10-2022 Calcium [Mass/Vol] 8.8 mg/dL 8.5-10.1 [facility] Work Phone: Serum or plasma creatinine m easurement (mass/volume)on 03-10-2022 Creatinine [Mass/Vol] 1.15 mg/dL 0.70-1.30 [facility] Work Phone: Comment on above: The validity of the calculated GFR & GFRAA in patients over 70 years has not been determined. Clinical correlation is essential. Serum or plasma urea nitroge n measurement (mass/volume)on 03-10-2022 Urea nitrogen [Mass/Vol] 28 mg/dL 7-18 [facility] Work Phone: Thin prep Papanicolaou smear with manual screeningon 03-10-2022 Thin prep Papanicolaou smear with manual screening 21 U/L 15-37 [facility] Work Phone: Thin prep Papanicolaou smear with manual screening 7 5-15 [facility] Work Phone: Whole blood hemoglobin A1c/t otal hemoglobin ratio (mass fraction)on 03-10-2022 HbA1c (Bld) [Mass fraction] 6.5 % 3.8-5.6 [facility] Work Phone: Comment on above: Normal < [...] MonDec 15, 2021 5:24:44 PM EST Normal [facility] Comment on above: Order Comment: Injur y/Trauma or Illness?:Illness/Other How long have you had these symptoms (acute/chronic)?:Acute Reason for exam?:resting tremor, Tremor Type of Exam?:Initial Additional signs and symptoms?:n Basophil percentageon 2020 Chloride [Moles/Vol] 104 mmol/L 98-107 [facility] Work Phone: Glucose [Mass/Vol] 148 mg/dL 74-106 [facility] Work Phone: Comment on above: Fasting Glucose resu lt greater than or equal to 126 mg/dL suggests DIABETES MELLITUS per A.D.A. criteria.Please note revised GLUCOSE reference range effective 2017. Potassium [Moles/Vol] 3.9 mmol/L 3.5-5.1 [facility] Work Phone: Sodium [Moles/Vol] 140 mmol/L 136-145 [facility] Work Phone: Laboratory - Chemistry and C hemistry - challengeon 11-15-2021 CO2 [Moles/Vol] 29.0 mmol/L 21.0-32.0 [facility] Work Phone: Urea nitrogen/Creatinine [Mass ratio] 18.5 mg/mg 10-20 [facility] Work Phone: No Panel Informationon 11-15 Estimated GFR (MDRD) Amer 85 mL/min >60 [facility] Work Phone: Comment on above: GFR Calc Estimated GFR (MDRD) Non-Af Amer 70 mL/min >60 [facility] Work Phone: Comment on above: Non- GFR Calc Serum or plasma calcium walt urement (mass/volume)on 11-15-2021 Calcium [Mass/Vol] 9.0 mg/dL 8.5-10.1 [facility] Work Phone: Serum or plasma creatinine m easurement (mass/volume)on 11-15-2021 Creatinine [Mass/Vol] 1.08 mg/dL 0.70-1.30 [facility] Work Phone: Comment on above: The validity of the calculated GFR & GFRAA in patients over 70 years has not been determined. Clinical correlation is essential. Serum or plasma urea nitroge n measurement (mass/volume)on 11-15-2021 Urea nitrogen [Mass/Vol] 20 mg/dL 7-18 [facility] Work Phone: Thin prep Papanicolaou smear with manual screeningon 11-15-2021 Thin prep Papanicolaou smear with manual screening 7 5-15 [facility] Work Phone: Whole blood hemoglobin A1c/t otal hemoglobin ratio (mass fraction)on 11-15-2021 HbA1c (Bld) [Mass fraction] 6.6 % 3.8-5.6 [facility] Work Phone: Comment on above: Normal < [...] No other mass effect. Patent basal cisterns. [id number] symmetric global volume loss without lobar predominance. [...] MonNov 02, 2021 8:48:26 AM EST Normal [facility] Comment on above: Order Comment: Injur y/Trauma or Illness?:Illness/Other How long have you had these symptoms (acute/chronic)?:Acute Reason for exam?:trmors Type of Exam?:Initial Additional signs and symptoms?:HIFU protocol Glucose,Bedsideon 05-19-2021 Glucose [Mass/Vol] 137 mg/dL High 70-100 [facility] Comment on above: Result Comment: Test performed by glucose meter. Results may be 10%-15% lower than serum/plasma values. (CLIA ID [id number]) Performed By: #### B GLU #### [facility] [address] [place] [id number] OPERATIVE REPORTOrdered By: buddy Scanning on 05-19-2021 [facility] Work Phone: POCT GlucoseOrdered By: Nii Altman on 05-19-2021 Glucose [Mass/Vol] 137 mg/dL High 70 - 100 mg/dL [facility] Work Phone: Comment on above: Test performed by gl ucose meter. Results may be 10%-15% lower than serum/plasma values. (CLIA ID [id number]) Interpretation and review of laboratory results Abnormal [facility] Work Phone: Test Performed by [facility], [address] [place] [id number] [employer] Work Phone: [employer] Work Phone: ECHO Pharmacological Stress TestOrdered By: Raeann Holland on 05-11-2021 STRESS ECHOCARDIOGRA M Dobutamine PATIENT: Luis Armando Griffith STUDY DATE: 05/11/2021 : 1945 AGE: 75 HT/WT: 177.8 cm (70 123.2 kg in) (271 lb) GENDER: M BP: 149 / 83 LOCATION: [facility] PATIENT Outpatient [facility] STATUS: Medical Center *ORDERING PHYSICIAN: * Amalia, *FELLOW: * Wes Montilla MD *SUPERVISING PHYSICIAN: * *RN: Bessie Irwin Diana *READING PHYSICIAN: * Miko Valdes MD, *FREIGHT RATE SPECIALIST: * Dai Burnette [facility] -- INDICATIONS: Pre-operative. Shortness of breath. 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 The infusion was terminated after achieving the [...] (84) + + (more content not included)... [facility] Work Phone: [employer], [employer] Incoming Cardiology Results From [employer] - 05/11/2021 4:29 PM EDT STRESS ECHOCARDIOGRAM Dobutamine PATIENT: Luis Armando Griffith STUDY DATE: 05/11/2021 : 1945 AGE: 75 HT/WT: 177.8 cm (70 123.2 kg in) (271 lb) GENDER: M BP: 149 / 83 LOCATION: [place] PATIENT Outpatient [facility] STATUS: Medical Center *ORDERING PHYSICIAN: * Amalia, *FELLOW: * Wes Montilla MD *SUPERVISING PHYSICIAN: * *RN: Bessie Irwin Diana *READING PHYSICIAN: * Miko Valdes MD, *FREIGHT RATE SPECIALIST: * Dai Burnette [facility] -- INDICATIONS: Pre-operative. Shortness of breath. 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 The infusion was terminated after achieving the [...] an appropriate blo (more content not included)... [facility] Work Phone: [employer] Phone: Echo Dobutamine Stress Echo w/wo Conton 05-11-2021 Echo Dobutamine Stress Echo w/wo Cont Patient Name: LUIS ARMANDO GRIFFITH Ultrasound ACCESSION EXAM DATE/TIME PROCEDURE ORDERING PROVIDER [id number] 05/11/2021 11:00 EDT Echo Dobutamine Stress AWA[facility] ALLISON Echo w/wo Cont Reason For Exam (Echo Dobutamine Stress Echo w/wo Cont) pre op testing, abnormal EKG, shortness of breath Report STRESS ECHOCARDIOGRAM Dobutamine PATIENT: Luis Armando Griffith STUDY DATE: 05/11/2021 : 1945 AGE: 75 HT/WT: 177.8 cm (70 123.2 kg in) (271 lb) GENDER: M BP: 149 / 83 LOCATION: [employer] PATIENT Outpatient [facility] STATUS: Medical Center *ORDERING PHYSICIAN: * Amalia, *FELLOW: * Wes Montilla MD *SUPERVISING PHYSICIAN: * *RN: * Bessie Duarte Diana *READING PHYSICIAN: * Miko Valdes MD, *FREIGHT RATE SPECIALIST: * Dai Burnette [facility] -- INDICATIONS: Pre-operative. Shortness of breath. 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 The infusion was terminated after achieving the [...] --+ +-- (more content not included)... Normal [facility] CBCOrdered By: Raeann murillo on 05-05-2021 Hematocrit (Bld) [Volume fraction] 46.8 % 40.0 - 52.0 % [facility] Work Phone: [phone] Hemoglobin.gastrointestin al spec 1 Ql (Stl) 15.9 g/dL 13.0 - 18.0 g/dL [facility] Work Phone: [phone] Interpretation and review of laboratory results Abnormal [facility] Work Phone: [phone] MCH (RBC) [Entitic mass] 31.9 pg 26. 0 - 34.0 pg [facility] Work Phone: 1) MCHC (RBC) [Mass/Vol] 34.0 % 32.0 - 36.0 % [employer] Work Phone: 1) MCV (RBC) [Entitic vol] 94.0 fL 80.0 - 98.0 fL [facility] Work Phone: 1) Platelet distribution width (Bld) [Ratio] 13.6 % 11.5 - 14.5 % [facility] Work Phone: 1) Platelet mean volume (Bld) [Entitic vol] 9.0 fL 7.4 - 10.4 fL [employer] Work Phone: 1) Platelets (Bld) [#/Vol] 287 10*3/uL 140 - 440 10*3/uL [facility] Work Phone: [phone] RBC (Bld) [#/Vol] 4.98 10*6/uL 4.40 - 5.9 0 10*6/uL [facility] Work Phone: [phone] WBC (Bld) [#/Vol] 11.0 10*3/uL High 3.6 - 10.7 10*3/uL [facility] Work Phone: 1) Test Performed by [facility], [facility] [place] [address] [facility] Work Phone: [phone] [facility] Work Phone: 1) Comp Panel with Mg Reflexon 05-05-2021 ALP [Catalytic activity/Vol] 74 U/L Normal 38-126 [facility] Comment on above: Performed By: #### C MP3M, HEMOG #### [facility] [address] [place] [address] ALT [Catalytic activity/Vol] 38 U/L Normal 0-49 [facility] Comment on above: Result Comment: The ALT test is performed by an updated assay method. Please note that the reference intervals have been changed and are now sex specific. Performed By: #### C MP3M, HEMOG #### [facility] [address] [place], [place] AST [Catalytic activity/Vol] 28 U/L Normal 15-46 [facility] Comment on above: Performed By: #### C MP3M, HEMOG #### [facility] [address] [place], [place] Calcium [Mass/Vol] 9.6 mg/dL Normal 8.4-10.4 [facility] Comment on above: Performed By: #### C MP3M, HEMOG #### [place] [address] [place], [place] Glucose [Mass/Vol] 55 mg/dL Low 70-100 [facility] Comment on above: Performed By: #### C MP3M, HEMOG #### [place] [address] [address] [place], [place] Protein [Mass/Vol] 8.1 g/dL Normal 6.3-8.2 [facility] Comment on above: Performed By: #### C MP3M, HEMOG #### [place] [address] [address] [place], [place] Urea nitrogen [Mass/Vol] 23 mg/dL High 7-20 [facility] Comment on above: Performed By: #### C MP3M, HEMOG #### [facility] [address], [place] Anion gap [Moles/Vol] 9 mmol/L Normal 3-13 [facility] Comment on above: Performed By: #### C MP3M, HEMOG #### [facility] [address], [place] Bilirubin [Mass/Vol] 1.3 mg/dL Normal 0.2-1.3 [facility] Comment on above: Performed By: #### C MP3M, HEMOG #### [place] [address] [address] [place], [place] CO2 [Moles/Vol] 30 mmol/L Normal 22-30 [facility] Comment on above: Performed By: #### C MP3M, HEMOG #### [address] Creatinine [Mass/Vol] 1.02 mg/dL Normal 0.52-1.25 [facility] Comment on above: Performed By: #### C MP3M, HEMOG #### [address] GFR/1.73 sq M.predicted among blacks MDRD (S/P/Bld) [Vol rate/Area] 81.9 mL/min/{1.73_m2} Normal >60 [facility] Comment on above: Performed By: #### C MP3M, HEMOG #### [place] [address] [place], [place] GFR/1.73 sq M.predicted among non-blacks MDRD (S/P/Bld) [Vol rate/Area] 70.7 mL/min/{1.73_m2} Normal >60 [facility] Comment on above: Result Comment: KDIG [...] Performed By: #### C MP3M, HEMOG #### [place] [address] [place], [place] Albumin [Mass/Vol] 4.8 g/dL Normal 3.5-5.0 [facility] Comment on above: Performed By: #### C MP3M, HEMOG #### [facility] [address] [place], [place] Chloride [Moles/Vol] 101 mmol/L Normal 98-107 [facility] Comment on above: Performed By: #### C MP3M, HEMOG #### [facility] [address] [place], [place] Potassium [Moles/Vol] 3.9 mmol/L Normal 3.5-5.1 [facility] Comment on above: Performed By: #### C MP3M, HEMOG #### [facility] [address] [place], [place] Sodium [Moles/Vol] 140 mmol/L Normal 135-145 [facility] Comment on above: Performed By: #### C MP3M, HEMOG #### [facility] [address] [place], [place] Comprehensive Metabolic Pane l w/ Reflex to MGOrdered By: Raeann Holland on 05-05-2021 Albumin [Mass/Vol] 4.8 g/dL 3.5 - 5.0 g/dL [facility] Work Phone: [phone] ALP (Bld) [Catalytic activity/Vol] 74 U/L 38 - 126 U/L [facility] Work Phone: [phone] ALT [Catalytic activity/Vol] 38 U/L 0 - 49 U/L [facility] Work Phone: [phone] Comment on above: The ALT test is perf ormed by an updated assay method. Please note that the reference intervals have been changed and are now sex specific. Anion gap [Moles/Vol] 9 mmol/L 3 - 13 mmol/L [facility] Work Phone: [phone] AST [Catalytic activity/Vol] 28 U/L 15 - 46 U/L [facility] Work Phone: [phone] Bilirubin [Mass/Vol] 1.3 mg/dL 0.2 - 1 .3 mg/dL [facility] Work Phone: [phone] Calcium [Mass/Vol] 9.6 mg/dL 8.4 - 10. 4 mg/dL [facility] Work Phone: Chloride [Moles/Vol] 101 mmol/L 98 - 10 7 mmol/L [facility] Work Phone: [phone] CO2 [Moles/Vol] 30 mmol/L 22 - 30 mmol/L [facility] Work Phone: [phone] Creatinine [Mass/Vol] 1.02 mg/dL 0.52 - 1.25 mg/dL [facility] Work Phone: [phone] EGFR IF NonAfrican Turkish 70.7 mL/min >60 [facility] Work Phone: [phone] Comment on above: KDIGO guidelines pro [...] fraction] 8.1 g/dL 6.3 - 8.2 g/dL [facility] Work Phone: [phone] GFR/1.73 sq M.predicted among blacks MDRD (S/P/Bld) [Vol rate/Area] 81.9 mL/min/{1.73_m2} >60 [facility] Work Phone: Glucose [Mass/Vol] 55 mg/dL Low 70 - 100 mg/dL [facility] Work Phone: [phone] Interpretation and review of laboratory results Abnormal [facility] Work Phone: [phone] Potassium [Moles/Vol] 3.9 mmol/L 3.5 - 5.1 mmol/L [facility] Work Phone: Sodium [Moles/Vol] 140 mmol/L 135 - 145 mmol/L [facility] Work Phone: Urea nitrogen (BldV) [Mass/Vol] 23 mg/dL High 7 - 20 mg/dL [facility] Work Phone: Test Performed by [facility], [address] [place] [address] [facility] Work Phone: [phone] [facility] Work Phone: [phone] Hemogramon 05-05-2021 Erythrocyte distribution width (RBC) [Ratio] 13.6 % Normal 11.5-14.5 [facility] Comment on above: Performed By: #### C MP3M, HEMOG #### [address] Hematocrit (Bld) [Volume fraction] 46.8 % Normal 40.0-52.0 [facility] Comment on above: Performed By: #### C MP3M, HEMOG #### [address] Hemoglobin (Bld) [Mass/Vol] 15.9 g/dL Normal 13.0-18.0 [facility] Comment on above: Performed By: #### C MP3M, HEMOG #### [address] MCH (RBC) [Entitic mass] 31.9 pg Normal 26.0-34.0 [facility] Comment on above: Performed By: #### C MP3M, HEMOG #### [address] MCHC 34.0 % Normal 32.0-36.0 [facility] Comment on above: Performed By: #### C MP3M, HEMOG #### [address] MCV (RBC) [Entitic vol] 94.0 fL Normal 80.0-98.0 [facility] Comment on above: Performed By: #### C MP3M, HEMOG #### [address] [place] [address] Platelet mean volume (Bld) [Entitic vol] 9.0 fL Normal 7.4-10.4 [facility] Comment on above: Performed By: #### C MP3M, HEMOG #### [facility] [address] [place] [address] Platelets (Bld) [#/Vol] 287 10*3/uL Normal 140-440 [facility] Comment on above: Performed By: #### C MP3M, HEMOG #### [facility] [address] [place] [address] RBC (Bld) [#/Vol] 4.98 10*6/uL Normal 4.40-5.90 [facility] Comment on above: Performed By: #### C MP3M, HEMOG #### [address] [address] WBC (Bld) [#/Vol] 11.0 10*3/uL High 3.6-10.7 [facility] Comment on above: Performed By: #### C MP3M, HEMOG #### [place] [address] [place] [address] TS GELon 05-05-2021 TS GEL ABO Group: A Rh, Gel: POS Antibody Screen Gel: NEG Normal [facility] Comment on above: Performed By: #### T SGL #### [facility] TYPE AND SCREENOrdered By: Khushbu Holland on 05-05-2021 ABO Grouping A [facility] Work Phone: Rh Type Positive [facility] Work Phone: Test Performed by [facility], [address] [place] [address] [facility] Work Phone: [facility] Work Phone: Otheron 08-16-2006 CONVERTED ELECTRONIC SIGNATURE GUILLERMO SIMPSON M.D., PATHOLOGIST (Electronic signature on file) Final Signed Out: 08/16/2006 12:36 [facility] CONVERTED FINAL DIAGNOSIS LEFT KNEE, EXC ISION - DEGENERATIVE CHANGES OF ARTICULAR CARTILAGE CONSISTENT WITH OSTEOARTHRITIS. [facility] CONVERTED ORDERING PROVIDER Ordering Provider: WYATT NOBLE [facility] Otheron 02-06-2006 CONVERTED ELECTRONIC SIGNATURE BILL MELTON M.D., PATHOLOGIST (Electronic signature on file) Final Signed Out: 02/06/2006 15:13 [facility] CONVERTED FINAL DIAGNOSIS LEFT KNEE, EXC ISION - FIBROCARTILAGE WITH DEGENERATIVE CHANGES. SYNOVIUM WITH NONSPECIFIC REACTIVE CHANGES. [facility] CONVERTED ORDERING PROVIDER Ordering Provider: WYATT NOBEL [facility] Vital Signs Date Time Vital Sign Value Performing Clinician Facility 07-07-2025 05:18-0400 Body temperature 98.7 [degF] Dr. Ja Cooley MD Work Phone: [facility] 07-07-2025 05:18-0400 Diastolic blood pressure 84 mm[Hg] Dr. Ja Cooley MD Work Phone: 1(150)000-294584 [place] [address] 07-07-2025 05:18-0400 Heart rate 94 /min Dr. Ja Cooley MD Work Phone: 0(055)006-498984 [place] [address] 07-07-2025 05:18-0400 Respiratory rate 16 /min Dr. Ja Cooley MD Work Phone: [facility] 07-07-2025 05:18-0400 SaO2% (BldA) [Mass fraction] 96 % Dr. Ja Cooley MD Work Phone: [facility] 07-07-2025 05:18-0400 Systolic blood pressure 152 mm[Hg] Dr. Ja Cooley MD Work Phone: [facility] 07-07-2025 03:54-0400 Body height 177.[address] Ja Cooley MD Work Phone: [facility] 07-07-2025 03:54-0400 Body mass index (BMI) [Ratio] 34.7 kg/m2 Dr. Ja Cooley MD Work Phone: [facility] 07-07-2025 03:54-0400 Body weight [address] Ja Cooley MD Work Phone: [facility] 06-27-2025 08:54-0400 Body mass index (BMI) [Ratio] 35.6 kg/m2 Dr. Ja Cooley MD Work Phone: [facility] 06-27-2025 08:54-0400 Body weight 112.[address] Ja Cooley MD Work Phone: [facility] 06-27-2025 08:54-0400 Diastolic blood pressure 71 mm[Hg] Dr. Ja Cooley MD Work Phone: 8(451)180-249484 [place] [address] 06-27-2025 08:54-0400 Heart rate 112 /min Dr. Ja Cooley MD Work Phone: 7(853)976-623288 [place] [address] 06-27-2025 08:54-0400 Heart rate 102 /min Dr. Ja Cooley MD Work Phone: 3(964)024-509488 [place] [address] 06-27-2025 08:54-0400 Respiratory rate 18 /min Dr. Ja Cooley MD Work Phone: 6(892)883-453230 [address] 06-27-2025 08:54-0400 SaO2% (BldA) [Mass fraction] 90 % Dr. Ja Cooley MD Work Phone: 2(555)836-602530 [address] 06-27-2025 08:54-0400 Systolic blood pressure 128 mm[Hg] Dr. Ja Cooley MD Work Phone: 5(172)630-783084 [place] [address] 06-26-2025 13:07-0400 Body temperature 98.4 [degF] Dr. Ja Cooley MD Work Phone: 5(403)612-808984 [place] [address] 06-26-2025 13:07-0400 Body weight 109.[address] Ja Cooley MD Work Phone: 7(890)104-111530 [address] 06-26-2025 13:07-0400 Diastolic blood pressure 72 mm[Hg] Dr. Ja Cooley MD Work Phone: 6(870)591-711688 [place] [address] 06-26-2025 13:07-0400 Heart rate 99 /min Dr. Ja Cooley MD Work Phone: 7(507)868-528984 [place] [address] 06-26-2025 13:07-0400 Respiratory rate 17 /min Dr. Ja Cooley MD Work Phone: [facility] 06-26-2025 13:07-0400 SaO2% (BldA) [Mass fraction] 90 % Dr. Ja Cooley MD Work Phone: [facility] 06-26-2025 13:07-0400 Systolic blood pressure 128 mm[Hg] Dr. Ja Cooley MD Work Phone: [facility] 06-24-2025 14:39-0400 Body height 177.[address] Ja Cooley MD Work Phone: 6(246)268-320384 [place] [address] 06-24-2025 14:39-0400 Body mass index (BMI) [Ratio] 34.8 kg/m2 Dr. Ja Cooley MD Work Phone: 6(899)983-631984 [place] [address] 06-24-2025 14:39-0400 Body weight 110.[address] Ja Cooley MD Work Phone: [facility] 06-24-2025 14:39-0400 Diastolic blood pressure 72 mm[Hg] Dr. Ja Cooley MD Work Phone: [facility] 06-24-2025 14:39-0400 Heart rate 82 /min Dr. Ja Cooley MD Work Phone: [facility] 06-24-2025 14:39-0400 Respiratory rate 17 /min Dr. Ja Cooley MD Work Phone: [facility] 06-24-2025 14:39-0400 SaO2% (BldA) [Mass fraction] 93 % Dr. Ja Cooley MD Work Phone: [facility] 06-24-2025 14:39-0400 Systolic blood pressure 127 mm[Hg] Dr. Ja Cooley MD Work Phone: [facility] 06-19-2025 21:29-0400 Body temperature 98.7 [degF] Dr. Ja Cooley MD Work Phone: [facility] 06-19-2025 21:29-0400 Diastolic blood pressure 66 mm[Hg] Dr. Ja Cooley MD Work Phone: 4(684)465-849784 [place] [address] 06-19-2025 21:29-0400 Heart rate 85 /min Dr. Ja Cooley MD Work Phone: 5(118)828-498384 [place] [address] 06-19-2025 21:29-0400 Respiratory rate 18 /min Dr. Ja Cooley MD Work Phone: 3(145)606-870084 [place] [address] 06-19-2025 21:29-0400 SaO2% (BldA) [Mass fraction] 93 % Dr. Ja Cooley MD Work Phone: 3(984)503-955388 [place] [address] 06-19-2025 21:29-0400 Systolic blood pressure 142 mm[Hg] Dr. Ja Cooley MD Work Phone: 1(155)814-814088 [place] [address] 06-19-2025 19:18-0400 Body height 177.[address] Ja Cooley MD Work Phone: 8(489)102-412588 [place] [address] 06-19-2025 19:18-0400 Body mass index (BMI) [Ratio] 35.3 kg/m2 Dr. Ja Cooley MD Work Phone: 5(270)063-642288 [place] [address] 06-19-2025 19:18-0400 Body weight 111.[address] Ja Cooley MD Work Phone: 2(611)332-888688 [place] [address] 06-12-2025 14:00-0400 Body temperature 98.3 [degF] Dr. Ja Cooley MD Work Phone: 5(086)421-597084 [place] [address] 06-12-2025 14:00-0400 Diastolic blood pressure 70 mm[Hg] Dr. Ja Cooley MD Work Phone: 8(850)649-758088 [place] [address] 06-12-2025 14:00-0400 Heart rate 69 /min Dr. Ja Cooley MD Work Phone: 9(234)451-860584 [place] [address] 06-12-2025 14:00-0400 Respiratory rate 14 /min Dr. Ja Cooley MD Work Phone: 8(165)927-701284 [place] [address] 06-12-2025 14:00-0400 SaO2% (BldA) [Mass fraction] 97 % Dr. Ja Cooley MD Work Phone: 7(590)880-023284 [place] [address] 06-12-2025 14:00-0400 Systolic blood pressure 118 mm[Hg] Dr. Ja Cooley MD Work Phone: 2(209)673-311088 [place] [address] 06-12-2025 10:40-0400 Body height 177.[address] Ja Cooley MD Work Phone: 3(522)697-018288 [place] [address] 06-12-2025 10:40-0400 Body mass index (BMI) [Ratio] 36.3 kg/m2 Dr. Ja Cooley MD Work Phone: 5(236)963-782988 [place] [address] 06-12-2025 10:40-0400 Body weight 114.[address] Ja Cooley MD Work Phone: 1(173)784-200488 [place] [address] 06-09-2025 16:10-0400 Body temperature 98.4 [degF] Dr. Ja Cooley MD Work Phone: 0(597)688-658588 [place] [address] 06-09-2025 16:10-0400 Diastolic blood pressure 80 mm[Hg] Dr. Ja Cooley MD Work Phone: 4(454)196-553788 [place] [address] 06-09-2025 16:10-0400 Heart rate 70 /min Dr. Ja Cooley MD Work Phone: 6(554)775-547988 [place] [address] 06-09-2025 16:10-0400 Respiratory rate 16 /min Dr. Ja Cooley MD Work Phone: 6(147)557-176788 [place] [address] 06-09-2025 16:10-0400 SaO2% (BldA) [Mass fraction] 95 % Dr. Ja Cooley MD Work Phone: 9(008)917-694588 [place] [address] 06-09-2025 16:10-0400 Systolic blood pressure 126 mm[Hg] Dr. Ja Cooley MD Work Phone: 3(332)757-088988 [place] [address] 06-09-2025 06:56-0400 Inhaled oxygen flow rate 3 L/min Dr. Ja Cooley MD Work Phone: 1(869)055-845984 [place] [address] 06-09-2025 04:55-0400 Body mass index (BMI) [Ratio] 35.3 kg/m2 Dr. Ja Cooley MD Work Phone: [facility] 06-09-2025 04:55-0400 Body weight 111.[address] Ja Cooley MD Work Phone: 4(342)179-863584 [place] [address] 06-08-2025 23:24-0400 Body height 177.[address] Ja Cooley MD Work Phone: [facility] 06-08-2025 21:41-0400 Body temperature 98 [degF] Dr. Ja Cooley MD Work Phone: 8(409)892-108884 [place] [address] 06-08-2025 21:41-0400 Diastolic blood pressure 76 mm[Hg] Dr. Ja Cooley MD Work Phone: 0(610)874-444784 [place] [address] 06-08-2025 21:41-0400 Heart rate 81 /min Dr. Ja Cooley MD Work Phone: [facility] 06-08-2025 21:41-0400 Respiratory rate 16 /min Dr. Ja Cooley MD Work Phone: 2(201)772-455684 [place] [address] 06-08-2025 21:41-0400 SaO2% (BldA) [Mass fraction] 94 % Dr. Ja Cooley MD Work Phone: 9(605)912-473184 [place] [address] 06-08-2025 21:41-0400 Systolic blood pressure 120 mm[Hg] Dr. Ja Cooley MD Work Phone: [facility] 06-08-2025 18:03-0400 Body height 177.[address] Ja Cooley MD Work Phone: [facility] 06-08-2025 18:03-0400 Body mass index (BMI) [Ratio] 35.9 kg/m2 Dr. Ja Cooley MD Work Phone: [facility] 06-08-2025 18:03-0400 Body weight 113.[address] Ja Cooley MD Work Phone: [facility] 05-11-2025 19:06-0400 Body temperature 98.4 [degF] Dr. Ja Cooley MD Work Phone: [facility] 05-11-2025 19:06-0400 Diastolic blood pressure 69 mm[Hg] Dr. Ja Cooley MD Work Phone: [facility] 05-11-2025 19:06-0400 Heart rate 72 /min Dr. Ja Cooley MD Work Phone: [facility] 05-11-2025 19:06-0400 Respiratory rate 16 /min Dr. Ja Cooley MD Work Phone: [facility] 05-11-2025 19:06-0400 SaO2% (BldA) [Mass fraction] 97 % Dr. Ja Cooley MD Work Phone: [facility] 05-11-2025 19:06-0400 Systolic blood pressure 138 mm[Hg] Dr. Ja Cooley MD Work Phone: [facility] 05-11-2025 17:49-0400 Body height 177.[address] Ja Cooley MD Work Phone: [facility] 05-11-2025 17:49-0400 Body mass index (BMI) [Ratio] 36.6 kg/m2 Dr. Ja Cooley MD Work Phone: [facility] 05-11-2025 17:49-0400 Body weight [address] Ja Cooley MD Work Phone: [facility] 04-13-2025 22:27-0400 Diastolic blood pressure 75 mm[Hg] ANALY Powell MD Work Phone: [facility] 04-13-2025 22:27-0400 Heart rate 77 /min ANALY Powell MD Work Phone: [facility] 04-13-2025 22:27-0400 Respiratory rate 20 /min ANALY Powell MD Work Phone: [facility] 04-13-2025 22:27-0400 SaO2% (BldA) [Mass fraction] 97 % ANALY Powell MD Work Phone: [facility] 04-13-2025 22:27-0400 Systolic blood pressure 133 mm[Hg] ANALY Powell MD Work Phone: [facility] 04-13-2025 20:40-0400 Body temperature 98.01 [degF] ANALY Powell MD Work Phone: [facility] 04-09-2025 13:13-0400 Body temperature 96.8 [degF] Dr. Ja Cooley MD Work Phone: [facility] 04-09-2025 13:13-0400 Diastolic blood pressure 65 mm[Hg] Dr. Ja Cooley MD Work Phone: [facility] 04-09-2025 13:13-0400 Heart rate 76 /min Dr. Ja Cooley MD Work Phone: [facility] 04-09-2025 13:13-0400 Respiratory rate 18 /min Dr. Ja Cooley MD Work Phone: [facility] 04-09-2025 13:13-0400 SaO2% (BldA) [Mass fraction] 98 % Dr. Ja Cooley MD Work Phone: [facility] 04-09-2025 13:13-0400 Systolic blood pressure 145 mm[Hg] Dr. Ja Cooley MD Work Phone: [facility] 04-09-2025 11:18-0400 Body height [address] Ja Cooley MD Work Phone: [facility] 04-09-2025 11:18-0400 Body mass index (BMI) [Ratio] 35.8 kg/m2 Dr. Ja Cooley MD Work Phone: [facility] 04-09-2025 11:18-0400 Body weight 113.[address] Ja Cooley MD Work Phone: [facility] 03-20-2025 16:23-0400 Diastolic blood pressure 78 mm[Hg] Dr. Ja Cooley MD Work Phone: [facility] 03-20-2025 16:23-0400 Systolic blood pressure 164 mm[Hg] Dr. Ja Cooley MD Work Phone: 1(251)446-463384 [place] [address] 03-20-2025 15:16-0400 Body height 177.[address] Ja Cooley MD Work Phone: 7(433)208-328584 [place] [address] 03-20-2025 15:16-0400 Body mass index (BMI) [Ratio] 34.9 kg/m2 Dr. Ja Cooley MD Work Phone: 7(197)018-414530 [address] 03-20-2025 15:16-0400 Body temperature 98.2 [degF] Dr. Ja Cooley MD Work Phone: 3(827)474-817730 [address] 03-20-2025 15:16-0400 Body weight 110.[address] Ja Cooley MD Work Phone: 0(887)260-753084 [place] [address] 03-20-2025 15:16-0400 Diastolic blood pressure 72 mm[Hg] Dr. Ja Cooley MD Work Phone: 0(147)765-901984 [place] [address] 03-20-2025 15:16-0400 Heart rate 86 /min Dr. Ja Cooley MD Work Phone: 5(592)502-921484 [place] [address] 03-20-2025 15:16-0400 Respiratory rate 15 /min Dr. Ja Cooley MD Work Phone: [facility] 03-20-2025 15:16-0400 SaO2% (BldA) [Mass fraction] 95 % Dr. Ja Cooley MD Work Phone: 4(492)951-283184 [place] [address] 03-20-2025 15:16-0400 Systolic blood pressure 134 mm[Hg] Dr. Ja Cooley MD Work Phone: [facility] 02-14-2025 21:12-0400 Body height 177.[address] Ja Cooley MD Work Phone: 7(599)511-644688 [place] [address] 02-14-2025 21:12-0400 Body temperature 97.3 [degF] Dr. Ja Cooley MD Work Phone: 7(096)450-505588 [place] [address] 02-14-2025 21:12-0400 Diastolic blood pressure 60 mm[Hg] Dr. Ja Cooley MD Work Phone: 8(465)018-284788 [place] [address] 02-14-2025 21:12-0400 Heart rate 93 /min Dr. Ja Cooley MD Work Phone: 5(890)621-565488 [place] [address] 02-14-2025 21:12-0400 Respiratory rate 18 /min Dr. Ja Cooley MD Work Phone: 1(510)207-787388 [place] [address] 02-14-2025 21:12-0400 SaO2% (BldA) [Mass fraction] 92 % Dr. Ja Cooley MD Work Phone: 9(998)795-554888 [place] [address] 02-14-2025 21:12-0400 Systolic blood pressure 137 mm[Hg] Dr. Ja Cooley MD Work Phone: 5(237)122-701788 [place] [address] 02-06-2025 14:25-0400 Diastolic blood pressure 64 mm[Hg] Dr. Ja Cooley MD Work Phone: 6(289)095-932488 [place] [address] 02-06-2025 14:25-0400 Systolic blood pressure 116 mm[Hg] Dr. Ja Cooley MD Work Phone: 6(890)443-299788 [place] [address] 02-06-2025 12:56-0400 Body temperature 97.8 [degF] Dr. Ja Cooley MD Work Phone: 9(300)689-244130 [address] 02-06-2025 12:56-0400 Body weight 110.[address] Ja Cooley MD Work Phone: 5(816)262-981488 [place] [address] 02-06-2025 12:56-0400 Heart rate 82 /min Dr. Ja Cooley MD Work Phone: 8(967)428-207388 [place] [address] 02-06-2025 12:56-0400 Respiratory rate 17 /min Dr. Ja Cooley MD Work Phone: 6(706)713-106284 [place] [address] 02-06-2025 12:56-0400 SaO2% (BldA) [Mass fraction] 95 % Dr. Ja Cooley MD Work Phone: 2(332)038-947184 [place] [address] 12-10-2024 14:30-0500 Diastolic blood pressure 70 mm[Hg] Dr. Ja Cooley MD Work Phone: 4(503)568-431684 [place] [address] 12-10-2024 14:30-0500 Systolic blood pressure 130 mm[Hg] Dr. Ja Cooley MD Work Phone: 4(519)798-410788 [place] [address] 12-10-2024 10:36-0500 Body height 177.[address] Ja Cooley MD Work Phone: 5(254)824-060088 [place] [address] 12-10-2024 10:36-0500 Body mass index (BMI) [Ratio] 34.7 kg/m2 Dr. Ja Cooley MD Work Phone: 0(353)435-118488 [place] [address] 12-10-2024 10:36-0500 Body temperature 97.7 [degF] Dr. Ja Cooley MD Work Phone: 3(882)978-636388 [place] [address] 12-10-2024 10:36-0500 Body weight 109.[address] Ja Cooley MD Work Phone: 1(934)393-677230 [address] 12-10-2024 10:36-0500 Heart rate 77 /min Dr. Ja Cooley MD Work Phone: 5(931)810-915884 [place] [address] 12-10-2024 10:36-0500 Respiratory rate 14 /min Dr. Ja Cooley MD Work Phone: 2(030)891-135184 [place] [address] 12-10-2024 10:36-0500 SaO2% (BldA) [Mass fraction] 97 % Dr. Ja Cooley MD Work Phone: 0(446)007-879484 [place] [address] 12-05-2024 19:35-0500 Body temperature 98 [degF] Dr. aJ Cooley MD Work Phone: 4(375)393-949284 [place] [address] 12-05-2024 19:35-0500 Diastolic blood pressure 75 mm[Hg] Dr. Ja Cooley MD Work Phone: [facility] 12-05-2024 19:35-0500 Heart rate 67 /min Dr. Ja Cooley MD Work Phone: [facility] 12-05-2024 19:35-0500 Respiratory rate 18 /min Dr. Ja Cooley MD Work Phone: 3(027)484-991184 [place] [address] 12-05-2024 19:35-0500 SaO2% (BldA) [Mass fraction] 97 % Dr. Ja Cooley MD Work Phone: 7(384)398-843684 [place] [address] 12-05-2024 19:35-0500 Systolic blood pressure 118 mm[Hg] Dr. Ja Cooley MD Work Phone: 7(190)863-096430 [address] 12-05-2024 17:15-0500 Body mass index (BMI) [Ratio] 34.5 kg/m2 Dr. Ja Cooley MD Work Phone: 9(168)677-119984 [place] [address] 12-05-2024 17:15-0500 Body weight 109.[address] Ja Cooley MD Work Phone: 2(657)985-318184 [place] [address] 10-12-2024 13:02-0500 Body temperature 98.2 [degF] Dr. Ja Cooley MD Work Phone: 0(752)210-060784 [place] [address] 10-12-2024 13:02-0500 Diastolic blood pressure 84 mm[Hg] Dr. Ja Cooley MD Work Phone: 5(472)752-077484 [place] [address] 10-12-2024 13:02-0500 Heart rate 78 /min Dr. Ja Cooley MD Work Phone: [facility] 10-12-2024 13:02-0500 Respiratory rate 16 /min Dr. Ja Cooley MD Work Phone: [facility] 10-12-2024 13:02-0500 SaO2% (BldA) [Mass fraction] 95 % Dr. Ja Cooley MD Work Phone: 5(761)365-421384 [place] [address] 10-12-2024 13:02-0500 Systolic blood pressure 121 mm[Hg] Dr. Ja Cooley MD Work Phone: [facility] 10-12-2024 11:16-0500 Body mass index (BMI) [Ratio] 35.6 kg/m2 Dr. Ja Cooley MD Work Phone: [facility] 10-12-2024 11:16-0500 Body weight 112.[address] Ja Cooley MD Work Phone: [facility] 03-25-2024 14:24-0400 Body height 177.[address] Ja Cooley Work Phone: [facility] 03-25-2024 14:24-0400 Body mass index (BMI) [Ratio] 36.3 kg/m2 Dr. Ja Cooley Work Phone: [facility] 03-25-2024 14:24-0400 Body temperature 98 [degF] Dr. Ja Cooley Work Phone: [facility] 03-25-2024 14:24-0400 Body weight 114.[address] Ja Cooley Work Phone: [facility] 03-25-2024 14:24-0400 Diastolic blood pressure 58 mm[Hg] Dr. Ja Cooley Work Phone: [facility] 03-25-2024 14:24-0400 Heart rate 78 /min Dr. Ja Cooley Work Phone: [facility] 03-25-2024 14:24-0400 Respiratory rate 17 /min Dr. aJ Cooley Work Phone: [facility] 03-25-2024 14:24-0400 SaO2% (BldA) [Mass fraction] 94 % Dr. Ja Cooley Work Phone: [facility] 03-25-2024 14:24-0400 Systolic blood pressure 124 mm[Hg] Dr. Ja Cooley Work Phone: [facility] 11-23-2023 14:02-0500 Body height 177.[address] Ja Cooley Work Phone: [facility] 11-23-2023 14:02-0500 Body mass index (BMI) [Ratio] 37 kg/m2 Dr. Ja Cooley Work Phone: [facility] 11-23-2023 14:02-0500 Body temperature 97.8 [degF] Dr. Ja Cooley Work Phone: [facility] 11-23-2023 14:02-0500 Body weight 117.[address] Ja Cooley Work Phone: [facility] 11-23-2023 14:02-0500 Diastolic blood pressure 84 mm[Hg] Dr. Ja Cooley Work Phone: [facility] 11-23-2023 14:02-0500 Heart rate 75 /min Dr. Ja Cooley Work Phone: [facility] 11-23-2023 14:02-0500 Respiratory rate 17 /min Dr. Ja Cooley Work Phone: [facility] 11-23-2023 14:02-0500 SaO2% (BldA) [Mass fraction] 93 % Dr. Ja Cooley Work Phone: [facility] 11-23-2023 14:02-0500 Systolic blood pressure 112 mm[Hg] Dr. Ja Cooley Work Phone: [facility] 08-07-2023 14:26-0400 Body height 177.[address] Ja Cooley Work Phone: [facility] 08-07-2023 14:26-0400 Body mass index (BMI) [Ratio] 38 kg/m2 Dr. Ja Cooley Work Phone: [facility] 08-07-2023 14:26-0400 Body temperature 98.4 [degF] Dr. Ja Cooley Work Phone: [facility] 08-07-2023 14:26-0400 Body weight 120.[address] Ja Cooley Work Phone: [facility] 08-07-2023 14:26-0400 Diastolic blood pressure 88 mm[Hg] Dr. Ja Cooley Work Phone: [facility] 08-07-2023 14:26-0400 Heart rate 74 /min Dr. Ja Cooley Work Phone: [facility] 08-07-2023 14:26-0400 Respiratory rate 17 /min Dr. Ja Cooley Work Phone: [facility] 08-07-2023 14:26-0400 SaO2% (BldA) [Mass fraction] 96 % Dr. Ja Cooley Work Phone: [facility] 08-07-2023 14:26-0400 Systolic blood pressure 138 mm[Hg] Dr. Ja Cooley Work Phone: [facility] 04-12-2023 10:15-0400 Body height 177.[address] Ja Cooley Work Phone: [facility] 04-12-2023 10:15-0400 Body mass index (BMI) [Ratio] 37 kg/m2 Dr. Ja Cooley Work Phone: [facility] 04-12-2023 10:15-0400 Body weight 117.[address] Ja Cooley Work Phone: [facility] 04-12-2023 10:15-0400 Diastolic blood pressure 70 mm[Hg] Dr. Ja Cooley Work Phone: [facility] 04-12-2023 10:15-0400 Heart rate 60 /min Dr. Ja Cooley Work Phone: [facility] 04-12-2023 10:15-0400 Respiratory rate 18 /min Dr. Ja Cooley Work Phone: [facility] 04-12-2023 10:15-0400 Systolic blood pressure 119 mm[Hg] Dr. Ja Cooley Work Phone: [facility] 04-11-2023 21:17-0400 Diastolic blood pressure 74 mm[Hg] Dr. Ja Cooley Work Phone: [facility] 04-11-2023 21:17-0400 Systolic blood pressure 124 mm[Hg] Dr. Ja Cooley Work Phone: [facility] 04-11-2023 21:16-0400 Heart rate 61 /min Dr. Ja Cooley Work Phone: [facility] 04-11-2023 09:55-0400 Body mass index (BMI) [Ratio] 37.3 kg/m2 Dr. Ja Cooley Work Phone: [facility] 04-11-2023 09:55-0400 Body temperature 97.8 [degF] Dr. Ja Cooley Work Phone: [facility] 04-11-2023 09:55-0400 Body weight 118.[address] Ja Cooley Work Phone: [facility] 04-11-2023 09:55-0400 Diastolic blood pressure 66 mm[Hg] Dr. Ja Cooley Work Phone: [facility] 04-11-2023 09:55-0400 Heart rate 70 /min Dr. Ja Cooley Work Phone: [facility] 04-11-2023 09:55-0400 Respiratory rate 17 /min Dr. Ja Cooley Work Phone: [facility] 04-11-2023 09:55-0400 SaO2% (BldA) [Mass fraction] 98 % Dr. Ja Cooley Work Phone: [facility] 04-11-2023 09:55-0400 Systolic blood pressure 140 mm[Hg] Dr. Ja Cooley Work Phone: [facility] 02-11-2023 12:46-0400 Body height 177.8 cm [facility] 02-11-2023 12:46-0400 Body mass index (BMI) [Ratio] 36.8 kg/m2 [facility] 02-11-2023 12:46-0400 Body temperature 97 [degF] [facility] 02-11-2023 12:46-0400 Body weight 116.52 kg [facility] 02-11-2023 12:46-0400 Diastolic blood pressure 68 mm[Hg] [facility] 02-11-2023 12:46-0400 Heart rate 82 /min [facility] 02-11-2023 12:46-0400 Respiratory rate 18 /min [facility] 02-11-2023 12:46-0400 SaO2% (BldA) [Mass fraction] 97 % [facility] 02-11-2023 12:46-0400 Systolic blood pressure 149 mm[Hg] [facility] 12-12-2022 13:47-0500 Body height 177.8 cm Gary Ruiz [facility] Work Phone: [facility] 12-12-2022 13:47-0500 Body weight 118.3 kg Gary Ruiz [facility] Work Phone: [facility] 12-12-2022 13:47-0500 SaO2% (BldA) [Mass fraction] 96 % Gary Ruiz [facility] Work Phone: [facility] 08-04-2022 13:56-0400 Diastolic blood pressure 86 mm[Hg] Jaylyn Nieves MD Work Phone: [facility] 08-04-2022 13:56-0400 Heart rate 107 /min Jaylyn Nieves MD Work Phone: [facility] 08-04-2022 13:56-0400 Respiratory rate 16 /min Jaylyn Nieves MD Work Phone: [facility] 08-04-2022 13:56-0400 SaO2% (BldA) [Mass fraction] 95 % Jaylyn Nieves MD Work Phone: [facility] 08-04-2022 13:56-0400 Systolic blood pressure 109 mm[Hg] Jaylyn Nieves MD Work Phone: [facility] 04-12-2022 08:46-0400 Body height 177.[address] Patricia Mcgowan Work Phone: [facility] Work Phone: 04-12-2022 08:46-0400 Body mass index (BMI) [Ratio] 38.4 kg/m2 Dr. Patricia Mcgowan Work Phone: [facility] Work Phone: 04-12-2022 08:46-0400 Body weight 121.[address] Patricia Mcgowan Work Phone: [facility] Work Phone: 04-12-2022 08:46-0400 Diastolic blood pressure 71 mm[Hg] Dr. Patricia Mcgowan Work Phone: [facility] Work Phone: 04-12-2022 08:46-0400 Heart rate 86 /min Dr. Patricia Mcgowan Work Phone: [facility] Work Phone: 04-12-2022 08:46-0400 Respiratory rate 16 /min Dr. Patricia Mcgowan Work Phone: [facility] Work Phone: 04-12-2022 08:46-0400 SaO2% (BldA) [Mass fraction] 97 % Dr. Patricia Mcgowan Work Phone: [facility] Work Phone: 04-12-2022 08:46-0400 Systolic blood pressure 113 mm[Hg] Dr. Patricia Mgcowan Work Phone: [facility] Work Phone: 04-12-2022 08:46-0400 Body height 177.[address] Patricia Mcgowan Work Phone: [facility] Work Phone: 04-12-2022 08:46-0400 Body mass index (BMI) [Ratio] 38.4 kg/m2 Dr. Patricia Mcgowan Work Phone: [facility] Work Phone: 04-12-2022 08:46-0400 Body weight 121.[address] Patricia Mcgowan Work Phone: [facility] Work Phone: 04-12-2022 08:46-0400 Diastolic blood pressure 71 mm[Hg] Dr. Patricia Mcgowan Work Phone: [facility] Work Phone: 04-12-2022 08:46-0400 Heart rate 86 /min Dr. Patricia Mcgowan Work Phone: [facility] Work Phone: 04-12-2022 08:46-0400 Respiratory rate 16 /min Dr. Patricia Mcgowan Work Phone: [facility] Work Phone: 04-12-2022 08:46-0400 SaO2% (BldA) [Mass fraction] 97 % Dr. Patricia Mcgowan Work Phone: [facility] Work Phone: 04-12-2022 08:46-0400 Systolic blood pressure 113 mm[Hg] Dr. Patricia Mcgowan Work Phone: [facility] Work Phone: 03-29-2022 12:09-0400 SaO2% (BldA) [Mass fraction] 98 % Jaylyn Nieves MD Work Phone: [facility] 03-17-2022 15:50-0400 Diastolic blood pressure 77 mm[Hg] Jaylyn Nieves MD Work Phone: [facility] 03-17-2022 15:50-0400 Systolic blood pressure 120 mm[Hg] Jaylyn Nieves MD Work Phone: [facility] 03-17-2022 14:51-0400 Body height 177.8 cm Jaylyn Nieves MD Work Phone: [facility] 03-17-2022 14:51-0400 Body weight 125.76 kg Jaylyn Nieves MD Work Phone: [facility] 03-17-2022 14:51-0400 Heart rate 101 /min Jaylyn Nieves MD Work Phone: [facility] 03-17-2022 14:51-0400 SaO2% (BldA) [Mass fraction] 98 % Jaylyn Nieves MD Work Phone: [facility] 01-28-2022 02:11-0500 Diastolic blood pressure 89 mm[Hg] Dr. Patricia Mcgowan Work Phone: [facility] Work Phone: 01-28-2022 02:11-0500 Heart rate 96 /min Dr. Patricia Mcgowan Work Phone: [facility] Work Phone: 01-28-2022 02:11-0500 Respiratory rate 18 /min Dr. Patricia Mcgowan Work Phone: [facility] Work Phone: 01-28-2022 02:11-0500 SaO2% (BldA) [Mass fraction] 94 % Dr. Patricia Mcgowan Work Phone: [facility] Work Phone: 01-28-2022 02:11-0500 Systolic blood pressure 158 mm[Hg] Dr. Patricia Mcgowan Work Phone: [facility] Work Phone: 01-28-2022 01:22-0500 Body mass index (BMI) [Ratio] 399.4 kg/m2 Dr. Patricia Mcgowan Work Phone: [facility] Work Phone: 01-28-2022 01:22-0500 Body temperature 97.6 [degF] Dr. Patricia Mcgowan Work Phone: [facility] Work Phone: 01-28-2022 01:22-0500 Body weight [address] Patricia Mcgowan Work Phone: [facility] Work Phone: 01-28-2022 01:11-0500 Diastolic blood pressure 89 mm[Hg] [facility] Work Phone: 01-28-2022 01:11-0500 Heart rate 96 /min [facility] Work Phone: 01-28-2022 01:11-0500 Respiratory rate 18 /min [facility] Work Phone: 01-28-2022 01:11-0500 SaO2% (BldA) [Mass fraction] 94 % [facility] Work Phone: 01-28-2022 01:11-0500 Systolic blood pressure 158 mm[Hg] [facility] Work Phone: 01-28-2022 00:22-0500 Body height 177.8 cm [facility] Work Phone: 01-28-2022 00:22-0500 Body mass index (BMI) [Ratio] 399.4 kg/m2 [facility] Work Phone: 01-28-2022 00:22-0500 Body temperature 97.6 [degF] [facility] Work Phone: 01-28-2022 00:22-0500 Body weight 1263 kg [facility] Work Phone: 10-05-2021 11:00-0500 Diastolic blood pressure 63 mm[Hg] Barb Morton MD Work Phone: [facility] Comment on above: Auto 10-05-2021 11:00-0500 Heart rate 99 /min Barb Morton MD Work Phone: [facility] 10-05-2021 11:00-0500 Systolic blood pressure 91 mm[Hg] Barb Morton MD Work Phone: [facility] Comment on above: Auto 10-05-2021 10:45-0500 Body weight 116.57 kg Barb Morton MD Work Phone: [facility] 05-19-2021 10:00-0400 Diastolic blood pressure 70 mm[Hg] Nii Altman MD Work Phone: [facility] Work Phone: 05-19-2021 10:00-0400 Heart rate 91 [...] 122.92 kg Nii Altman MD Work Phone: [facility] Work Phone: 05-11-2021 09:45-0400 Body mass index (BMI) [Ratio] 38.88 kg/m2 Raeann Holland [facility] Work Phone: [facility] Work Phone: 05-11-2021 09:45-0400 Body weight 122.92 kg Raeann Holland [facility] Work Phone: [facility] Work Phone: Comment on [...] Phone: [facility] Work Phone: 05-05-2021 10:21-0400 Body mass index (BMI) [Ratio] 38.88 kg/m2 Nii Altman MD Work Phone: [facility] Work Phone: 05-05-2021 10:21-0400 Body weight 122.92 kg Nii Altman MD Work Phone: [facility] Work Phone: Encounters Encounter Date Encounter Type Care Provider Facility Start: 07-07-2025 End: 07-07-2025 Emergency department patient visit Dr. Ja Cooley MD Work Phone: -Emergency Department Work Phone: Start: 07-05-2025 ambulatory Ja Cooley Facilit y:[facility] Start: 07-05-[address] Ja Cooley MD -[facility] Work Phone: Start: 07-04-2025 ambulatory Ja Cooley Facilit y:[facility] Start: 06-27-2025 End: 06-27-2025 Patient encounter procedure Christel Bae NP-[facility] Work Phone: Start: 06-27-2025 End: 06-27-[address] Ja Cooley MD Work Phone: -[facility] Start: 06-26-2025 End: 06-26-[address] Vick Santo MD -[facility] Work Phone: Start: 06-26-2025 End: 06-26-[address] Ja Cooley MD Work Phone: -[facility] Start: 06-24-2025 End: 06-24-[address] Curt Isaacs MD -[facility] Work Phone: Start: 06-24-2025 End: 06-24-[address] Ja Cooley MD Work Phone: -[facility] Start: 06-19-2025 End: 06-19-2025 Emergency department patient visit Dr. Ja Cooley MD Work Phone: -Emergency Department Work Phone: Start: 06-12-2025 End: 06-12-2025 Emergency department patient visit Dr. Ja Cooley MD Work Phone: -Emergency Department Work Phone: Start: 06-09-2025 Non-patient / Non-visit Dr. Analy Narayanan MD -[facility] Work Phone: Start: 06-09-2025 ambulatory Ja Cooley Facilit y:[facility] Start: 06-09-2025 Non-patient / Non-visit Dr. Pratik GARZA -[facility] Start: 06-09-2025 ambulatory Geo Garza Facili ty:[facility] Start: 06-09-2025 Non-patient / Non-visit Dr. Guillermo hernández MD -[facility] Start: 06-08-2025 End: 06-09-2025 ambulatory Geo Garza Facility:[facility] Start: 06-08-2025 End: 06-09-2025 Evaluation and management of inpatient Dr. Geo Garza DO -Progressive Care Unit Work Phone: Start: 06-08-2025 End: 06-09-[address] Ja Cooley MD Work Phone: -Progressive Care Unit Start: 05-26-2025 End: 05-26-[address] Ja Cooley MD Work Phone: -[facility] Start: 05-26-2025 End: 05-26-[address] Natasha Gregory MD -[facility] Start: 05-26-2025 End: 05-26-2025 ambulatory Ja Cooley Facility:[facility] Start: 05-14-2025 End: 05-14-[address] Ja Cooley MD Work Phone: -Speech Therapy Start: 05-14-2025 End: 05-14-[address] Vick Santo MD -Speech Therapy Work Phone: Start: 05-14-[address] Olivier Santo MD -Speech Therapy Work Phone: Start: 05-11-2025 End: 05-11-2025 Emergency department patient visit Dr. Ja Cooley MD Work Phone: -Emergency Department Work Phone: Start: 05-09-2025 End: 05-09-[address] Ja Cooley MD Work Phone: [facility] Work Phone: Start: 05-09-2025 End: 05-09-[address] Vick Santo MD -Radiology [facility] Work Phone: Start: 05-09-2025 End: 05-09-2025 ambulatory Vick Santo Facility:[facility] Start: 05-07-[address] Olivier Santo MD -Speech Therapy Work Phone: Start: 04-13-2025 End: 04-13-2025 Emergency department patient visit Chetan Powell MD Work Phone: [facility] Comment on above: Facial laceration, i nitial encounter (Primary Dx); Fall, initial encounter; Open fracture of nasal bone, initial encounter Start: 04-09-2025 End: 04-09-2025 Emergency department patient visit Dr. Ja Cooley MD Work Phone: -Emergency Department Work Phone: Start: 04-03-2025 End: 04-03-[address] Ja Cooley MD -Laboratory [facility] Start: 04-03-2025 End: 04-03-2025 ambulatory NATASHA GREGORY MD Facility:A Start: 04-03-2025 End: 04-03-2025 ambulatory Ja Cooley Facility:[facility] Start: 04-01-[address] Olivier Santo MD -Speech Therapy Work Phone: Start: 03-26-[address] Olivier Santo MD -Speech Therapy Work Phone: Start: 03-24-2025 End: 03-24-[address] Ja Cooley MD Work Phone: [facility] Work Phone: Start: 03-24-2025 End: 03-24-[address] Jose Perez MD -[facility] Work Phone: Start: 03-24-2025 End: 03-24-2025 ambulatory Ja Cooley Facility:[facility] Start: 03-20-2025 End: 03-20-[address] Vick Santo MD -[facility] Work Phone: Start: 03-20-2025 End: 03-20-2025 ambulatory Vick Santo [facility] Start: 03-03-2025 End: 03-03-[address] Ja Cooley MD Work Phone: [facility] Work Phone: Start: 03-03-2025 End: 03-03-[address] Jose Perez MD -[facility] Start: 03-03-2025 End: 03-03-2025 [facility]ulatory [facility] Start: 02-25-[address] Olivier Santo MD -Speech Therapy Work Phone: Start: 02-20-2025 End: 02-20-[address] Ja Cooley MD Work Phone: [facility] Work Phone: Start: 02-20-2025 End: 02-20-[address] Natasha Gregory MD -[facility] Start: 02-20-2025 End: 02-20-2025 ambulatory Ja Cooley Facility:[facility] Start: 02-14-2025 End: 02-14-2025 Emergency department patient visit Dr. Ja Cooley MD Work Phone: -Emergency Department Work Phone: Start: 02-06-2025 End: 02-06-[address] Vick Santo MD -[facility] Work Phone: Start: 02-06-2025 End: 02-06-2025 ambulatory Ja Cooley Facility:[facility] Start: 01-21-2025 End: 01-21-[address] Ja Cooley MD Work Phone: [facility] Work Phone: Start: 01-21-2025 End: 01-21-[address] Ja Cooley MD -Radiology, [place] Work Phone: Start: 01-21-2025 End: 01-21-2025 ambulatory Ja Cooley Facility:[facility] Start: 12-10-2024 End: 12-10-[address] Vick Santo MD -[facility] Work Phone: Start: 12-10-2024 End: 12-10-2024 ambulatory Vick Santo [facility] Start: 12-10-2024 End: 12-10-2024 ambulatory Ja Cooley Facility:[facility] Start: 12-05-2024 End: 12-05-2024 Emergency department patient visit Dr. Estuardo Mccormack DO -Emergency Department Work Phone: Start: 12-04-2024 End: 12-04-[address] [facility] Start: 12-04-2024 End: 12-04-2024 ambulatory Ja Cooley Facility:[facility] Start: 12-02-2024 End: 12-02-[address] [facility] Start: 12-02-2024 End: 12-02-2024 ambulatory Ja Cooley Facility:[facility] Start: 10-28-2024 End: 10-28-[address] [facility] Start: 10-28-2024 End: 10-28-2024 ambulatory Ja Cooley Facility:[facility] Start: 10-12-2024 End: 10-12-2024 Emergency department patient visit Dr. Osman Farooq MD -Emergency Department Work Phone: Start: 09-27-2024 End: 09-27-2024 ambulatory Ja Cooley Facility:[facility] Start: 09-20-2024 End: 09-20-2024 ambulatory [facility] Facility:[facility] Start: 09-02-2024 End: 09-02-2024 ambulatory [facility] Start: 09-02-2024 End: 09-02-2024 ambulatory [facility] Facility:[facility] Start: 08-07-2024 End: 08-07-2024 ambulatory Ja Cooley Facility:[facility] Start: 03-25-2024 End: 03-25-[address] Ja Cooley Work Phone: [facility] Work Phone: Start: 03-25-2024 End: 03-25-[address] [facility] Work [facility]: Start: 03-25-2024 End: 03-25-[address] Ja Cooley Work Phone: [facility] Work Phone: Start: 02-27-2024 End: 02-27-[address] Ja Cooley Work Phone: [facility] Work Phone: Start: 02-27-2024 End: 02-27-[address] Ja Cooley Work Phone: [facility] Start: 01-30-2024 End: 01-30-[address] Ja Cooley Work Phone: [facility] Work Phone: Start: 01-30-2024 End: 01-30-[address] Ja Cooley Work Phone: [facility] Work Phone: Start: 12-26-2023 End: 12-26-[address] Ja Cooley Work Phone: [facility] Work Phone: Start: 12-26-2023 End: 12-26-[address] Ja Cooley Work Phone: [facility] Work Phone: Start: 12-15-2023 End: 12-15-[address] Ja Cooley Work Phone: [facility] Work Phone: Start: 12-15-2023 End: 12-15-[address] Ja Cooley Work Phone: [facility] Work Phone: Start: 11-23-2023 End: 11-23-[address] Ja Cooley Work Phone: [facility] Start: 11-23-2023 End: 11-23-[address] Ja Cooley Work Phone: [facility] Work Phone: Start: 11-22-2023 End: 11-22-[address] Ja Cooley Work Phone: [facility] Work Phone: Start: 11-22-2023 End: 11-22-[address] Ja Cooley Work Phone: [facility] Work Phone: Start: 10-31-2023 End: 10-31-[address] Ja Cooley Work Phone: [facility] Work Phone: Start: 10-31-2023 End: 10-31-[address] Ja Cooley Work Phone: [facility] Start: 09-07-2023 End: 09-07-[address] Ja Cooley Work Phone: [facility] Work Phone: Start: 08-07-2023 End: 08-07-[address] Ja Cooley Work Phone: [facility] Work Phone: Start: 08-03-2023 End: 08-03-[address] Ja Cooley Work Phone: [facility] Work Phone: Start: 06-21-2023 Non-patient / Non-visit Dr. Rimma Cooley Work Phone: [facility] Start: 06-21-2023 End: 06-21-[address] Ja Cooley Work Phone: [facility] Work Phone: Start: 06-21-2023 End: 06-21-[address] [facility] Work [facility] Start: 05-18-2023 End: 05-18-[address] Ja Cooley Work Phone: [facility] Work Phone: Start: 05-18-2023 End: 05-18-[address] Ja Cooley Work Phone: [facility] Work Phone: Start: 05-09-2023 End: 05-09-[address] Ja Cooley Work Phone: [facility] Work Phone: Start: 05-09-2023 End: 05-09-[address] Ja Cooley Work Phone: [facility] Start: 05-02-2023 End: 05-02-[address] Ja Cooley Work Phone: [facility] Work Phone: Start: 05-02-2023 End: 05-02-[address] Ja Cooley Work Phone: [facility]-Physical Therapy Work Phone: Start: 05-02-[address] Ja Cooley Work Phone: [facility]-Physical Therapy Start: 05-01-2023 End: 05-01-[address] Ja Cooley Work Phone: [facility] Work Phone: Start: 05-01-2023 End: 05-01-[address] Ja Cooley Work Phone: [facility] Start: 04-12-2023 End: 04-12-[address] Ja Cooley Work Phone: [facility] Start: 04-11-2023 End: 04-11-[address] Ja Cooley Work Phone: [facility] Start: 02-21-2023 End: 02-21-2023 ambulatory [facility] Work Phone: Start: 02-21-2023 End: 02-21-[address] [facility] Start: 02-14-2023 Telephone encounter Jaylyn peck MD Work Phone: Neurology Comment on above: Patient Update (Incr eased falls, aggression) Start: 02-11-2023 End: 02-11-2023 Emergency department patient visit [facility]-Emergency Department Start: 01-10-2023 Telephone encounter Jaylyn peck MD Work Phone: Neurology Comment on above: Patient Update Start: 01-04-2023 End: 01-04-2023 ambulatory [facility] Work Phone: Start: 01-04-2023 End: 01-04-[address] [facility] Start: 12-12-2022 End: 12-12-2022 ambulatory Gary Ruiz APRN.[facility] Work Phone: Neurology Comment on above: TAMULOSIN Start: 12-12-2022 End: 12-12-2022 Office outpatient new 20 minutes Gary Ruiz APRN.[facility] Work Phone: Neurology Comment on above: Parkinsonism, unspec ified Parkinsonism type (HCC) (Primary Dx); Orthostatic hypotension; Anxiety Start: 10-10-2022 Telephone encounter Jaylyn peck MD Work Phone: Neurology Comment on above: Patient Update (Incr eased shaking in AM ) Start: 10-04-2022 End: 10-04-2022 ambulatory [facility] Facility:[facility] Start: 10-04-2022 End: 10-04-2022 ambulatory [facility] PT, DPT Work Phone: [facility] Outpatient Physical Therapy Comment on above: Parkinsonism, unspec ified Parkinsonism type (HCC) (Primary Dx); Gait instability; Leg weakness, bilateral; Imbalance Start: 09-16-2022 End: 09-16-2022 ambulatory [facility] Work Phone: Start: 09-16-2022 End: 09-16-2022 Patient encounter procedure [facility] Start: 09-15-2022 End: 09-15-2022 ambulatory Jaylyn Nieves MD Work Phone: Neurology Comment on above: CARL Start: 09-12-2022 Telephone encounter Jaylyn peck MD Work Phone: [facility] Comment on above: Other (PD Symptoms W orsening) Start: 09-02-2022 End: 09-02-2022 [facility] Aleida Ramirez MD Work Phone: [facility] Comment on above: MELISSA (generalized anx iety disorder) (Primary Dx); Depression, unspecified depression type; Parkinsonism, unspecified Parkinsonism type (HCC) Start: 08-25-2022 End: 08-25-2022 ambulatory [facility] Facility:[facility] Start: 08-25-2022 End: 08-25-2022 ambulatory Willis Ryder PT, DPT Work Phone: [facility] Outpatient Physical Therapy Comment on above: Parkinsonism, unspec ified Parkinsonism type (HCC) (Primary Dx); Gait instability; Leg weakness, bilateral; Imbalance Start: 08-11-2022 End: 08-11-2022 ambulatory [facility] Facility:[facility] Start: 08-08-2022 ambulatory Jaylyn jennings MD Work Phone: Neurology Comment on above: Dr. Suzie Nieves at 07/21 2:20 PM Start: 08-04-2022 End: 08-04-2022 ambulatory JAYLYN NIEVES Facility:[facility] Start: 08-04-2022 End: 08-04-2022 Patient encounter procedure Jaylyn Nieves MD Work Phone: Neurology Comment on above: Parkinsonism, unspec ified Parkinsonism type (HCC) (Primary Dx); Depression, unspecified depression type; Anxiety; Orthostatic lightheadedness; Dysphagia, unspecified type Start: 08-01-2022 End: 08-01-[address] Patricia Mcgowan Work Phone: [facility] Work Phone: Start: 08-01-2022 End: 08-01-[address] [facility] Start: 07-21-2022 Telephone encounter Jaylyn peck MD Work Phone: Neurology Comment on above: Appointment (Earlier appointment request d/t worsening symptoms ) Start: 06-21-2022 End: 06-21-[address] Patricia Mcgowan Work Phone: [facility] Start: 06-20-2022 End: 06-20-[address] Patricia Mcgowan Work Phone: [facility] Start: 05-18-2022 Refill Jaylyn jennings MD Work Phone: [facility] Comment on above: Refill Request Start: 05-16-2022 Non-patient / Non-visit Dr. Danya Mcgowan Work Phone: [facility] Start: 05-16-2022 End: 05-16-[address] Patricia Mcgowan Work Phone: [facility]-Cardiovascul ar Services Start: 04-25-2022 End: 04-25-[address] Patricia Mcgowan Work Phone: [facility] Start: 04-12-2022 End: 04-12-[address] Patricia Mcgowan Work Phone: [facility] Start: 04-07-2022 End: 04-07-2022 Patient encounter procedure [facility]-Laboratory Start: 03-29-2022 End: 03-29-2022 ambulatory Maine Medel PT, DPT Work Phone: [facility] Outpatient Physical Therapy Comment on above: Parkinson disease (H CC) (Primary Dx) Start: 03-29-2022 End: 03-29-2022 Patient encounter procedure Michelle Ro CCC-COMPUTER SYSTEMS ANALYST Work Phone: [facility] Outpatient Speech Therapy Comment on above: Parkinsonism, unspec ified Parkinsonism type (HCC) (Primary Dx); Dysphagia, oropharyngeal phase; Dysarthria Gait instability (Pr imary Dx); Parkinsonism, unspecified Parkinsonism type (HCC); Dysphasia; Oropharyngeal dysphagia; Decreased activities of daily living (ADL) Start: 03-23-2022 Telephone encounter Jaylyn peck MD Work Phone: Neurology Comment on above: Upcoming Appointment (Pre-rooming phone call) Start: 03-17-2022 End: 03-17-2022 ambulatory PATRICIA MCGOWAN Facility:[facility] Start: 03-17-2022 End: 03-17-2022 Patient encounter procedure Jaylyn Nieves MD Work Phone: Neurology Comment on above: Parkinsonism, unspec ified Parkinsonism type (HCC) (Primary Dx); Essential tremor; Dysphagia, unspecified type; Gait instability Start: 03-10-2022 End: 03-10-[address] [facility] Start: 02-10-2022 Documentation procedure Jaspreet Ríos [facility] Start: 01-28-2022 End: 01-28-2022 Emergency department patient visit [facility]-Emergency Department Start: 12-31-2021 End: 12-31-2021 Patient encounter procedure [facility] Start: 12-21-2021 End: 12-21-2021 ambulatory [facility] Start: 12-21-2021 End: 12-21-2021 Office outpatient visit 15 minutes Brab Morton MD Work Phone: [facility] Comment on above: Parkinson's disease (HCC) (Primary Dx) Start: 12-15-2021 End: 12-16-2021 ambulatory PATRICIA TRISTEN [facility] Start: 12-15-2021 End: 12-16-2021 ambulatory [facility] Start: 12-05-2021 ambulatory [facility] Start: 11-18-2021 ambulatory PATRICIA SHARMAER RIMMAJOSE [facility] Start: 11-15-2021 [facility] Start: 11-09-2021 Refill Jaspreet Qureshi MA [facility] Start: 11-05-2021 Documentation procedure Jim Bradford RN [facility] Start: 11-03-2021 Documentation procedure Jaspreet Ríos [facility] Start: 11-01-2021 End: 11-02-2021 ambulatory BARB MAS [facility] Start: 10-28-2021 End: 11-01-2021 ambulatory Barb Morton MD Work Phone: [facility] Comment on above: Tremor; Impaired mobility and activities of daily living; Impairment of balance Start: 10-05-2021 End: 10-05-2021 ambulatory PATRICIA MCGOWAN [facility] Start: 10-05-2021 End: 10-05-2021 Office outpatient visit 25 minutes Barb Morton MD Work Phone: [facility] Comment on above: Tremor (Primary Dx) Start: 09-27-2021 Transcribe Orders Patricia Mcgowan MD Work Phone: [facility] Comment on above: Tremor, essential (P rimary Dx) Start: 05-19-2021 End: 05-19-2021 Subsequent hospital visit by physician Nii Altman MD Work Phone: [facility] General Surgery Comment on above: Arrived Start: 05-11-2021 End: 05-11-2021 Patient encounter status Raeann Holland APRN - [facility] Work Phone: [facility] Start: 05-11-2021 End: 05-11-2021 Subsequent hospital visit by physician Raeann Holland APRN - [facility] Work Phone: [facility] Comment on above: [...] of breath Start: 04-12-2021 Patient encounter status [facility] Work Phone: Start: 08-14-2006 End: 08-14-2006 Patient encounter procedure Wyatt Noble Work Phone: [facility] Start: 08-14-2006 Results Only Wyatt Valleo x Work Phone: [facility] Start: 02-03-2006 End: 02-03-2006 Patient encounter procedure Wyatt Noble Work Phone: [facility] Start: 02-03-2006 Results Only Wyatt Valleo x Work Phone: [facility] Procedures Date Procedure Procedure Detail Performing Clinician Start: 07-07-2025 X-ray of knee, four or more views Dr. Ja Cooley MD Work Phone: Start: 07-07-2025 CT cervical spine wi thout contrast Dr. Ja Cooley MD Work Phone: Start: 07-07-2025 CT of head without contrast Dr. Ja Cooley MD Work Phone: Start: 07-05-2025 Urnls dip stick/tabl et reagent auto microscopy Dr. Ja Cooley MD Work Phone: Start: 06-19-2025 CT of head without contrast Dr. Ja Cooley MD Work Phone: Start: 06-12-2025 Urnls dip stick/tabl et reagent auto microscopy Dr. Ja Cooley MD Work Phone: Start: 06-12-[address] Ja Cooley MD Work Phone: Start: 06-12-2025 CT cervical spine wi thout contrast Dr. Ja Cooley MD Work Phone: Start: 06-12-2025 CT of head without contrast Dr. Ja Cooley MD Work Phone: Start: 06-09-[address] Ja Cooley MD Work Phone: Start: 06-09-2025 Serum inorganic phos phate measurement Dr. Ja Cooley MD Work Phone: Start: 06-08-2025 Methadone measuremen t, urine Dr. Ja Cooley MD Work Phone: Start: 06-08-2025 Urnls dip stick/tabl et reagent auto microscopy Dr. Ja Cooley MD Work Phone: Start: 06-08-[address] Ja Cooley MD Work Phone: Start: 06-08-2025 Plain chest X-ray Dr. Chetan Cooley MD Work Phone: Start: 06-08-2025 CT cervical spine wi thout contrast Dr. Ja Cooley MD Work Phone: Start: 06-08-2025 CT of head without contrast Dr. Ja Cooley MD Work Phone: Start: 05-26-2025 Folic acid measureme nt, RBC Dr. Ja Cooley MD Work Phone: Comment on above: Performed at: [address] [id number] Director: Vj Garcia PhD, Phone: [phone] Start: 05-09-[address] Ja valle MD Work Phone: Start: 04-13-2025 Ct maxillofacial w/o contrast material Chetan Powell MD Work Phone: Start: 04-13-2025 Simple repair f/e/e/ n/l/m 2.6cm-5.0 cm J Erna Powell MD Work Phone: Start: 04-09-2025 CT cervical spine wi thout contrast Dr. Ja Cooley MD Work Phone: Start: 04-09-2025 CT of head without contrast Dr. Ja Cooley MD Work Phone: Start: 04-03-2025 Vitamin D, 25-hydrox y measurement Dr. Ja Cooley MD Work Phone: Comment on above: Vitamin D StatusDefi ciency: <20 ng/mL (50nmol/L)Insufficiency: 20-30 ng/mL (50-75 nmol/L)Sufficiency: 30-100 ng/mL (75-250 nmol/L)Toxicity: >100 ng/mL (>250 nmol/L) Start: 03-24-2025 CT of chest without contrast Dr. Ja Cooley MD Work Phone: Start: 02-20-2025 Urine microalbumin/creatinine ratio measurement Dr. Ja Cooley MD Work Phone: Comment on above: Previous reported re sult: 87.7 mg/g CREEdited by: STACI on 05/08/25:0851 AMENDED REPORT 05/08/25 0851 MALB:CREAT previously reported as: 87.7 mg/g CRE Start: 02-14-2025 CT cervical spine wi thout contrast Dr. Ja Cooley MD Work Phone: Start: 02-14-2025 CT of head without contrast Dr. Ja Cooley MD Work Phone: Start: 01-21-2025 X-ray of chest, PA a nd lateral views Dr. Ja Cooley MD Work Phone: Start: 12-10-[address] Ja Cooley MD Work Phone: Start: 12-10-2024 Urine microalbumin/creatinine ratio measurement Dr. Ja Cooley MD Work Phone: Start: 12-05-2024 CT cervical spine wi thout contrast Dr. Ja Cooley MD Work Phone: Start: 12-05-2024 CT of head without contrast Dr. Ja Cooley MD Work Phone: Start: 12-04-2024 Measurement of renal function Dr. Ja Cooley MD Work Phone: Comment on above: GFR Calc Start: 12-04-2024 Vitamin D, 25-hydrox y measurement Dr. Ja Cooley MD Work Phone: Comment on above: Vitamin D 25(OH) Sta tus Range Deficiency <20 ng/mL (50nmol/L) Insufficiency 20 - 30 ng/mL (50 - 75 nmol/L) Sufficiency 30 - 100 ng/mL (75 - 250 nmol/L) Toxicity >100 ng/mL (>250 nmol/L) Start: 12-02-2024 X-ray of chest, PA a nd lateral views Dr. Ja Cooley MD Work Phone: Start: 10-12-2024 X-ray of chest posteroanterior view Dr. Ja Cooley MD Work Phone: Start: 01-30-2024 Plain chest X-ray Dr. Chetan Cooley Work Phone: Start: 12-26-2023 Plain chest X-ray Dr. Chetan Cooley Work Phone: Start: 12-26-2023 End: 12-26-2023 Radiologic examination of knee Dr. Ja Cooley Work Phone: Start: 12-15-2023 Plain chest X-ray Dr. Chetan Cooley Work Phone: Start: 11-22-2023 Plain chest X-ray Dr. Chetan Cooley Work Phone: Start: 05-18-2023 MRI of brain without contrast Dr. Ja Cooley Work Phone: Start: 05-18-2023 MRI of cervical spine Maria Isabel Cooley Work Phone: Start: 05-18-2023 MRI of lumbar spine Dr. Ja Cooley Work Phone: Start: 02-11-2023 CT of [...] 05-11-2021 ECHOCARDIOGRAM PHARMACOLOGICAL STRESS TEST Raeann Holland [facility] Work Phone: Start: 05-05-2021 Antibody screen Nii Charlton MD Work Phone: Start: 05-05-2021 Blood count complete automated Raeann Holland [facility] Work Phone: Start: 05-05-2021 Blood typing serologic abo Raeann Holland [facility] Work Phone: Start: 05-05-2021 Ecg routine ecg w/le ast 12 lds w/i&r Raeann Holland [facility] Work Phone: Start: 08-14-2006 CONVERTED SURGICAL PATHOLOGY Wyatt Noble Work Phone: Start: 02-03-2006 CONVERTED SURGICAL PATHOLOGY Wyatt Noble Work Phone: History of operative procedure on knee History of knee joint replacement Dr. Ja Cooley MD Work Phone: Plan of Treatment Date Care Activity Detail Author Start: 12-05-2034 DTaP/Tdap/Td Vaccines (4 - Td or Tdap) DTaP/Tdap/Td Vaccines (4 - Td or Tdap) [facility] Start: 01-25-2031 Tetanus vaccination Tetanus: Every 10yrs [facility] Start: 07-07-2025 [facility] Start: 07-05-2025 Urine culture Urine Culture [facility] Start: 07-05-2025 [facility] Start: 06-27-2025 Evaluation of diagnostic study results [facility] Start: 06-19-2025 [facility] Start: 06-19-2025 Simple repair f/e/e/n/l/m 2.5cm/< RPR F/E/E/N/L/M 2.5 CM/< [facility] Start: 06-12-2025 [facility] Start: 06-12-2025 [facility] Start: 06-09-2025 Patient discharge [facility] Start: 06-09-2025 Referral to service [facility] Start: 06-09-2025 Speech therapy assessment [facility] Start: 06-09-2025 Inhalation therapy procedure [facility] Start: 06-08-2025 Following clinical pathway protocol [facility] Start: 06-08-2025 Assessment of risk of venous thromboembolism [facility] Start: 06-08-2025 End: 06-08-2025 Care regimes management [facility] Start: 06-08-2025 Incentive spirometry [facility] Start: 06-08-2025 Insertion of catheter into peripheral vein [facility] Start: 06-08-2025 Measuring intake and output [facility] Start: 06-08-2025 End: 06-08-2025 Notification of physician [facility] Start: 06-08-2025 Oxygen therapy [facility] Start: 06-08-2025 Providing care according to standard [facility] Start: 06-08-2025 Provision of activity privileges [facility] Start: 06-08-2025 Referral to occupational therapist [facility] Start: 06-08-2025 Referral to service [facility] Start: 06-08-2025 End: 06-08-2025 [facility] Start: 06-08-2025 [facility] Start: 06-08-2025 Verification routine [facility] Start: 06-08-2025 Admission procedure [facility] Start: 06-08-2025 Hospital admission, emergency, from emergency room, medical nature [facility] Start: 06-08-2025 [facility] Start: 06-08-2025 [facility] Start: 05-11-2025 [facility] Start: 04-09-2025 Simple repair scalp/neck/ax/genit/trun k 2.5cm/< RPR S/N/AX/GEN/TRNK 2.5CM/< [facility] Start: 04-09-2025 [facility] Start: 03-24-2025 CT Chest WO contrast [facility] Start: 03-24-2025 CT of chest without contrast Chest without Contrast [facility] Start: 02-14-2025 [facility] Start: 01-04-2025 Patient referral [facility] Work Phone: Start: 12-11-2024 Patient referral [facility] Work Phone: Start: 12-05-2024 [facility] Start: 12-05-2024 Simple repair f/e/e/n/l/m 2.6cm-5.0 cm RPR F/E/E/N/L/M 2.6-5.0 CM [facility] Start: 11-11-2024 COVID-19 Vaccine ( season) COVID-19 Vaccine ( season) [facility] Start: 10-12-2024 Incentive spirometry [facility] Start: 10-12-2024 End: 10-12-2024 [facility] Start: 04-02-2024 Patient referral [facility] Work Phone: Start: 03-25-2024 Acetylcholine receptor blocking Ab [Presence] in Serum [facility] Start: 03-25-2024 Acetylcholine receptor modulating antibody measurement [facility] Start: 11-23-2023 Serum immunofixation [facility] Start: 11-23-2023 Urine immunofixation [facility] Start: 05-09-2023 [place] and lambda light chains [facility] Start: 05-09-2023 Thiamine measurement [facility] Start: 03-11-2023 Adult depression screening assessment DEPRESSION SCREENING [facility] Start: 11-20-2022 ADVANCE DIRECTIVE DISCUSSION ADVANCE DIRECTIVE DISCUSSION [facility] Start: 11-20-2022 DEPRESSION ASSESSMENT DEPRESSION ASSESSMENT [facility] Start: 07-21-2022 Influenza vaccination INFLUENZA (#1) [facility] Start: 05-05-2022 Creatinine measurement Creatinine monitoring [facility] Work Phone: Start: 05-05-2022 Diabetes: Estimated Glomerular Filtration Rate for Kidney Health Diabetes: Estimated Glomerular Filtration Rate for Kidney Health [facility] Start: 05-05-2022 Potassium monitoring Potassium monitoring [facility] Work Phone: Start: 12-21-2021 End: 12-21-2021 Telemedicine consultation with patient 12/21/2021 Telemedicine Neurology Barb Morton MD [address] [facility] [address] [place] [address] [facility] Start: 12-15-2021 End: 12-15-2021 Patient encounter procedure 12/15/2021 Appointment Radiology Barb Morton MD [address] [place] [address] [facility] Start: 11-20-2021 ADVANCE DIRECTIVE DISCUSSION ADVANCE DIRECTIVE DISCUSSION [facility] Start: 11-20-2021 DEPRESSION ASSESSMENT DEPRESSION ASSESSMENT [facility] Start: 11-01-2021 End: 11-01-2021 Patient encounter procedure 11/01/2021 Appointment Radiology Barb Morton MD [address] [place] [address] [facility] [address] Start: 06-03-2021 End: 06-03-2021 Patient encounter procedure 06/03/2021 Office [place] [address] [place] [phone] [facility] Start: 05-19-2021 End: 05-19-2021 Patient encounter procedure 05/19/2021 Appointment General Surgery Nii Altman MD [address] [place] [phone] [facility] General Surgery Start: 05-05-2021 End: 07-04-2021 ECHO Pharmacological Stress Test ECHO Pharmacological Stress Test Echocardiography Routine Pre-op testing Abnormal EKG Shortness of breath Expected: 05/05/2021 (Approximate), Expires: 07/04/2021 [facility] Work Phone: Comment on above: Expected: 05/05/2021 (Approximate), Expi res: 07/04/2021 Start: 07-21-2020 Influenza vaccination INFLUENZA (#1) [facility] Start: 05-12-2019 Annual Wellness Visit (AWV) Annual Wellness Visit (AWV) [facility] Work Phone: Start: 2009 ADVANCE DIRECTIVE DISCUSSION ADVANCE DIRECTIVE DISCUSSION [facility] Start: 2009 Fall risk assessment Falls Risk Assessment [facility] Start: 2009 Pneumococcal 65+ years Vaccine (1 of 1 - PPSV23) Pneumococcal 65+ years Vaccine (1 of 1 - PPSV23) [facility] Work Phone: Start: 2009 PNEUMOCOCCAL: 65+ (1 - PCV) PNEUMOCOCCAL: 65+ (1 - PCV) [facility] Start: 2009 PNEUMOVAX AGE 65 AND OVER WITH 5YR LOOKBACK (#1) PNEUMOVAX AGE 65 AND OVER WITH 5YR LOOKBACK (#1) [facility] Start: 1994 Shingles Vaccine (1 of 2) Shingles Vaccine (1 of 2) [facility] Work Phone: Start: 1994 SHINGRIX VACCINE (1 of 2) SHINGRIX VACCINE (1 of 2) [facility] Start: 1994 Tuberculosis screening COLORECTAL CANCER SCREENING,SEE MODIFIER [facility] Start: 1989 DIABETES SCREEN DIABETES SCREEN [facility] Start: 1979 LIPID SCREEN LIPID SCREEN [facility] Start: 1963 DTaP/Tdap/Td vaccine (1 - Tdap) DTaP/Tdap/Td vaccine (1 - Tdap) [facility] Work Phone: Start: 1963 Urine microalbumin profile DTAP,TDAP,TD (1 - Tdap) [facility] Start: 1962 Diabetes: Urine Albumin-Creatinine Ratio for Kidney Health Diabetes: Urine Albumin-Creatinine Ratio for Kidney Health [facility] Start: 1962 HEPATITIS C SCREENING HEPATITIS C SCREENING [facility] Start: 1962 Hepatitis C screening Hepatitis C Screening [facility] Start: 1956 COVID-19 Vaccine (1) COVID-19 Vaccine (1) [facility] Work Phone: Start: 1956 Depression screening using PHQ-9 (Patient Health Questionnaire 9) score [facility] Start: 1954 Diabetic foot examination Foot Exam [facility] Start: 1954 Lipid panel Lipid screen [facility] Work Phone: Start: 1954 Microalbumin measurement, urine, quantitative Urine Microalbumin [facility] Start: 1954 Ophthalmic examination and evaluation Ophthalmology Exam [facility] Start: 1947 History and physical examination, annual for health maintenance Wellness Visit [facility] Start: 1944 Hemoglobin A1c measurement A1C [facility] Start: 1944 Hepatitis C screening Hepatitis C screen [facility] Work Phone: Start: 1944 Medicare Annual Wellness (AWV) Medicare Annual Wellness (AWV) [facility] 24 Hour ECG [facility] Albumin [Moles/volum e] in Serum or Plasma [facility] Albumin/Globulin ratio [facility] Blood glucose - POCT [facility] Work Phone: Comment on above: As Needed until discontinued starting Cobalamin (Vitamin B 12) [Mass/volume] in Serum or Plasma [facility] End: 05-19-2021 Creatinine [Mass/volume] in Serum or Plasma Creatinine, serum Lab STAT One Time for 1 Occurrences starting 05/19/2021 until 05/19/2021 [facility] Work Phone: Comment on above: One Time for 1 Occurrences starting 04/22 until 05/19/2021 End: 10-05-2022 CT of head without contrast CT Head Or Brain Without Contrast Imaging Routine Tremor 1 Occurrences starting 10/05/2021 until 10/05/2022 [employer] Comment on above: 1 Occurrences starting 10/05/2021 until 10/05/2022 EKG 12 Lead [facility] Work Phone: Electrophoresis: [id number] [facility] Electrophoresis: aamir ma globulin [facility] Folate [Moles/volume ] in Serum or Plasma [facility] Folic acid measureme nt, RBC [facility] Globulin measurement [facility] IgA [Mass/volume] in Serum or Plasma [facility] IgG [Mass/volume] in Serum or Plasma [facility] IgM [Mass/volume] in Serum or Plasma [facility] End: 05-19-2021 Intermittent pulse oximetry Pulse Oximetry Spot Check Respiratory Care Routine One Time for 1 Occurrences starting 05/19/2021 until 05/19/2021 [facility] Work Phone: Comment on above: One Time for 1 Occurrences starting 04/22 until 05/19/2021 [place]/lambda light c winsome ratio [facility] Lambda light chains. free [Mass/volume] in Serum or Plasma [facility] MR Brain WO and W contrast IV [facility] MR Brain WO contrast [facility] MR Cervical spine [facility] MR Lumbar spine [facility] End: 05-11-2021 Nasal Cannula Oxygen Nasal Cannula Oxygen Respiratory Care Routine As Needed until discontinued starting 05/11/2021 [facility] Work Phone: Comment on above: As Needed until discontinued starting End: 10-05-2022 NM Brain Datscan SPECT CT Single Area Single Day NM Brain Datscan SPECT CT Single Area Single Day Imaging Routine Tremor 1 Occurrences starting 10/05/2021 until 10/05/2022 [employer] Work Phone: Comment on above: 1 Occurrences starting 10/05/2021 until 10/05/2022 Oxygen therapy [[facility] Data Set] Initiate Oxygen Therapy Protocol Respiratory Care Routine Daily until discontinued starting 05/19/2021 [facility] Work Phone: Comment on above: Daily until discontinued starting 2020 Patient Education [facility] Work Phone: Patient referral [facility] Work Phone: End: 05-19-2021 Potassium w/ Reflex to Magnesium Potassium w/ Reflex to Magnesium Lab Routine One Time for 1 Occurrences starting 05/19/2021 until 05/19/2021 [facility] Work Phone: Comment on above: One Time for 1 Occurrences starting 04/22 until 05/19/2021 End: 05-19-2021 , urine POCT , urine POCT Point of Care Testing Routine One Time for 1 Occurrences starting 05/19/2021 until 05/19/2021 [employer] Work Phone: Comment on above: One Time for 1 Occurrences starting 04/22 until 05/19/2021 Protein electrophore sis panel - Serum or Plasma [facility] End: 05-19-2021 Protime-INR Protime-INR Lab STAT One Time for 1 Occurrences starting 05/19/2021 until 05/19/2021 [employer] Work Phone: Comment on above: One Time for 1 Occurrences starting 04/22 until 05/19/2021 PT PLAN OF CARE CERTIFICATION PT PLAN OF CARE CERTIFICATION Procedures Routine Parkinson disease (HCC) Ordered: 03/29/2022 [facility] Work Phone: Comment on above: Ordered: 03/29/2022 Serum immunofixation [facility] SPEECH PLAN OF CARE CERTIFICATION SPEECH PLAN OF CARE CERTIFICATION Procedures Routine Parkinsonism, unspecified Parkinsonism type (HCC) Dysphagia, oropharyngeal phase Dysarthria Ordered: 03/29/2022 [facility] Work Phone: Comment on above: Ordered: 03/29/2022 Spirometry panel Incentive mariann metry Respiratory Care Routine Q1H PRN until discontinued starting 05/19/2021 [employer] Work Phone: Comment on above: Q1H PRN until discontinued starting 04/22 Troponin T.cardiac [Mass/volume] in Serum or Plasma by High sensitivity method [facility] Urine immunofixation [facility] Urine kappa light ch ain measurement [facility] Immunizations Immunization Date Immunization Notes Care Provider Laureen gordon 12-05-2024 tetanus toxoid, redu aman diphtheria toxoid, and acellular pertussis vaccine, adsorbed Dr. Ja Cooley MD Work Phone: [facility] Payers Date Payer Category Payer Private Health Insurance MRA [facility] [id number] 2025 Unknown [id number] 2024 Self-pay [id number] 2021 Unknown [place] [id number] 2021-Present [phone] [address] [place] [address] [id number] [id number] .7.3.500860.315 2021 Unknown [id number] 2021 Unknown [id number]. 1.13.385.2 .7.3.023560.315 2017 [employer] ( and others) [id number] 1.2.840.357669.1.13.239.2 .7.3.670057.315 2009 Medicare [id number] 1.2.840.337560.1.13.385.2 .7.3.078940.315 2009 Medicare 1.2.840.541907. 1.13.385.2 .7.3.359100.315 2009 Medicare [id number] 1.2.840.163325.1.13.239.2 .7.3.953386.315 2002 Self-pay [id number] 1.2.840.930157.1.13.159.2 .7.3.891001.315 1944 Unknown [id number] 2.16840.1.712285.3.579.2 .900 1944 Unknown [id number] 2.16840.1.283216.3.579.2 .900 1944 Unknown [id number] 2.840.1.606020.3.579.2 .900 1944 Unknown [id number] 2.16840.1.116020.3.579.2 .900 1944 Unknown [id number] 2.16.840.1.716022.3.579.2 .900 1944 Unknown [id number] 2.16.840.1.429405.3.579.2 .900 1944 Unknown [id number] 2.16840.1.593291.3.579.2 .900 1944 Unknown [id number] 2.16.840.1.770409.3.579.2 .900 1944 Unknown [id number] 2.16.840.1.286490.3.579.2 .900 1944 Unknown [id number] 2.16.840.1.989159.3.579.2 .627 1944 Unknown [id number] 2.16.840.1.718633.3.579.2 .627 Unknown [id number] 2.16.840.1.929197.3.579.2 .462 Unknown [id number] 2.16.840.1.854650.3.579.2 .462 Unknown [id number] 2.16.840.1.768103.3.579.2 .462 Unknown [id number] 2.16.840.1.862744.3.579.2 .462 Unknown [id number] 2.16.840.1.237375.3.579.2 .462 Unknown [id number] 2.16.840.1.390901.3.579.2 .462 Unknown [id number] 2.16.840.1.623291.3.579.2 .462 Unknown [id number] 2.16.840.1.667326.3.579.2 .462 Unknown [id number] 2.16840.1.018078.3.579.2 .462 Unknown [id number] 2.16.840.1.465464.3.579.2 .462 Unknown [id number] 2.16.840.1.533713.3.579.2 .462 Unknown [id number] 2.16.840.1.614471.3.579.2 .462 Unknown [id number] 2.16.840.1.480846.3.579.2 .462 Unknown [id number] 2.16840.1.215408.3.579.2 .462 Unknown [id number] 2.16.840.1.722750.3.579.2 .462 Unknown [id number] 2.16.840.1.916855.3.579.2 .462 Unknown [id number] 2.16.840.1.411389.3.579.2 .462 Unknown [id number] 2.16.840.1.801697.3.579.2 .462 Unknown [id number] 2.16840.1.863483.3.579.2 .462 Unknown [id number] 2.16.840.1.851244.3.579.2 .462 Unknown [id number] 2.16.840.1.407730.3.579.2 .462 Unknown [id number] 2.16.840.1.117088.3.579.2 .462 Unknown [id number] 2.16840.1.220492.3.579.2 .462 Unknown [id number] 2.16840.1.744509.3.579.2 .462 Unknown [id number] 2.840.1.464268.3.579.2 .462 Unknown [id number] 2.840.1.280453.3.579.2 .462 Unknown [id number] 2.840.1.072436.3.579.2 .462 Unknown [id number] 2.840.1.873928.3.579.2 .462 Unknown [id number] 2.840.1.856781.3.579.2 .462 Unknown [id number] 2.840.1.167231.3.579.2 .462 Unknown [id number] 2.840.1.939969.3.579.2 .462 Unknown [id number] 2.840.1.876360.3.579.2 .462 Unknown [id number] 2.840.1.225362.3.579.2 .462 Unknown [id number] 2.840.1.387296.3.579.2 .462 Unknown [id number] 2.16840.1.210220.3.579.2 .462 Unknown [id number] 2.16840.1.894654.3.579.2 .462 Unknown [id number] 2.840.1.674686.3.579.2 .462 Unknown [id number] 2.16.840.1.863606.3.579.2 .462 Social History Date Type Detail Facility Tobacco smoking stat us IAIS Unknown if ever smoked [facility] Start: 1945 Sex Assigned At Not on file [facility] Start: 05-05-2021 End: 07-07-2025 Tobacco smoking status NHIS Former smoker [facility] Work Phone: Start: 11-20-1947 End: 11-20-1998 History of tobacco use Current smoker [facility] Start: [birth year]-20-1948 End: 11-20-1998 History of tobacco use Cigarette Smoker [facility] Start: 05-05-2021 End: 11-08-2022 Cigarettes smoked current (pack per day) - Reported [facility] Work Phone: Start: 05-05-2021 End: 08-04-2022 Tobacco use and exposure Never used [facility] Start: 05-05-2021 End: 11-08-2022 Alcohol intake Current non-drinker of alcohol (finding) [facility] Work Phone: Start: 11-15-2021 End: 09-02-2022 Exposure to SARS-CoV-2 (event) Not sure [facility] Start: 01-28-2022 End: 08-07-2023 Tobacco smoking status IAIS Tobacco smoking consumption unknown [facility] Start: 10-05-2021 End: 12-12-2022 Alcohol intake Lifetime non-drinker (finding) [facility] Start: 1945 Sex Assigned At Male [facility] Start: 08-25-2021 History SDOH Alcohol Frequency 1 [facility] Start: 07-25-2022 End: 08-04-2022 Exposure to SARS-CoV-2 (event) Yes [facility] Start: 06-20-2022 End: 02-03-2025 Sex Male (finding) [facility] Start: 11-08-2022 End: 04-13-2025 Alcohol Use Disorder Identification Test - Consumption [AUDIT-C] [facility] How often to you hav e a drink containing alcohol? Never [facility] How many standard dr inks containing alcohol do you have on a typical day? Patient does not drink [facility] Medical Equipment Procedure Code Equipment Code Equipment Origin al Text Equipment Identifier Dates [id number] Start: 01-15-2018 SURE COMFORT PEN NEEDLES 31G X 8 MM MISC [id number] Start: 12-28-2017 blood sugar diagnostic (FreeStyle Lite Strips) strips [id number] Start: 01-15-2018 pen needle, diab etic 31 gauge x 5/16 Ndle [id number] Start: 12-28-2017 Goals Date Patient Goal Desired Activity /State Functional Status Date Assessment Result Facility 06-09-2025 Functional status Ambulates [facility] Work Phone: 04-13-2025 Total score [AUDIT-C] 0 04/13/20 8:48 PM EDT Cielo Valverde, RN [facility] Mental Status Date Assessment Result Facility 06-12-2025 Cognitive function Voice/Name [facility] Work Phone: 06-09-2025 Cognitive function Speech Pattern Delayed [facility] Work Phone: 05-11-2025 Cognitive function Level Of Cons ciousness Awake;Alert;Appropriate;Follow s Commands [facility] Work Phone: 10-12-2024 Cognitive function Awake;Alert;A ppropriate;Follow s Commands [facility] Work Phone: 01-28-2022 Cognitive function Level Of Cons ciousness Awake;Alert;Appropriate;Follow s Commands [facility] Work Phone: Clinical Notes 05-05-2021 to 07-07-2025 Note Date & Type Note Facility 07-07-2025 Radiology Diagnostic study note [facility] Imaging Services [address], [place] [address] Knee 4 or More Views MR#: [id number] Acct: [id number] Name: LUIS ARMANDO GRIFFITH Rep #: [id number] : 1945 M 79 From: Gwen Skinner MD PCP: Dr. Ja Cooley MD Status: RE G ER Study:Knee 4 or More Views Date of Exam: 07/07/25 Exam# [id number] Ordering Dr: Chetan Deras MD PROCEDURE: KNEE 4 OR MORE VIEWS 07/07/2025 REASON FOR EXAM: FALL TECHNIQUE: KNEE 4 OR MORE VIEWS Laterality: Right COMPARISON: 12/26/2023 FINDINGS: Intact knee arthroplasty is seen. Diffuse soft tissue swelling, air foci and effusion are seen. Surgical clips are seen. No definite fracture or dislocation seen. Moderate joint effusion in the suprapatellar bursa. Intact knee arthroplasty. Post operative changes. RAD/Knee 4 or More Views IMPRESSION: Intact knee arthroplasty. Post operative changes. Reading Location: [place] [address] CC: Dr. Yadiel Deras MD; Dr. Ja Cooley MD ~ Communications Department Chair: Signed [facility] 07-07-2025 Radiology Diagnostic study note [facility] Imaging Services [address] [place], [place] [id number] Spine Cervical without Contras MR#: [id number] Acct: [id number] Name: LUIS ARMANDO GRIFFITH Rep #: [id number] 09 : 1945 M 79 From: Gwen Skinner MD PCP: Dr. Ja Cooley MD Status: RE G ER Study:Spine Cervical without Contras Date of Exam: 07/07/25 Exam# [id number] Ordering Dr: Chetan Deras MD PROCEDURE: SPINE CERVICAL WITHOUT CONTRAS 07/07/2025 REASON FOR EXAM: TRAUMA TECHNIQUE: SPINE CERVICAL WITHOUT CONTRAS Coronal and Sagittal reconstruction series were provided. One or more dose reduction techniques were used (e.g., Automated exposure control, adjustment of the mA and/or kV according to patient size, use of iterative reconstruction technique. RADIATION DOSE SUMMARY: CTDlvol: 25 mGy DLP: 644 mGycm COMPARISON: CT scan on 06/12/2025. FINDINGS: There are diffuse spondylotic changes. Findings are demonstrated to by diffuse disc space narrowing, osteophyte formation and degenerative endplate sclerosis. There is diffuse facet joint arthropathy with secondary bilateral neural foramina narrowing. No fracture or dislocation is seen. No aggressive lytic or blastic bony lesion is noted. CT/Spine Cervical without Contras IMPRESSION: No CT evidence of an acute abnormality. [facility] CC: Dr. Yadiel Deras MD; Dr. Ja Cooley MD ~ Communications Department Chair: Signed [facility] 07-07-2025 Radiology Diagnostic study note [facility] Imaging Services [address] [place] [address] Brain/Head without Contrast MR#: [id number] Acct: [id number] Name: LUIS ARMANDO GRIFFITH Rep #: [id number] 08 : 1945 M 79 From: Gwen Skinner MD PCP: Dr. Ja Cooley MD Status: RE G ER Study:Brain/Head without Contrast Date of Exa m: 07/07/25 Exam# [id number] Ordering Dr: Chetan Deras MD PROCEDURE: BRAIN/HEAD WITHOUT CONTRAST 07/07/2025 REASON FOR EXAM: HEAD TRAUMA TECHNIQUE: BRAIN/HEAD WITHOUT CONTRAST Coronal and Sagittal reconstruction series were provided. One or more dose reduction techniques were used (e.g., Automated exposure control, adjustment of the mA and/or kV according to patient size, use of iterative reconstruction technique. RADIATION DOSE SUMMARY: CTDlvol: 25.49 mGy DLP: 644 mGycm COMPARISON: 06/19/2025. FINDINGS: Mild diffuse cortical atrophy, commensurate with the patient's age. Scattered hypodense foci in the periventricular and subcortical white matter suggestive of chronic ischemic white matter disease. Normal size of the ventricles and extra-axial spaces for the patient's age. Normal basal ganglia and thalami. Normal brainstem. Normal cerebellum. There is no demonstrated extra-axial, intraparenchymal, or intraventricular hemorrhage. There are no findings of an acute ischemic infarction. Normal calvarium. There is no demonstrated fracture. Left frontal subgaleal soft tissue hematoma, decreased since the prior exam. Normal visualized paranasal sinuses. CT/Brain/Head without Contrast IMPRESSION: Left frontal subgaleal soft tissue hematoma, decreased since the prior exam. No other interval change is noted. [facility] CC: Dr. Yadiel Deras MD; Dr. Ja Cooley MD ~ Communications Department Chair: Signed [facility] 06-19-2025 Discharge summary [facility] 06-19-2025 Radiology Diagnostic study note [facility] Imaging Services [address] [place] [address] Brain/Head without Contrast MR#: [id number] Acct: [id number] Name: LUIS ARMANDO GRIFFITH Rep #: [id number] 40 : 1945 M 79 From: [facility] john Joiner MD PCP: Dr. Ja Cooley MD Status: RE G ER Study:Brain/Head without Contrast Date of Exa m: 06/19/25 Exam# [id number] Ordering Dr: Surya Dumont MD PROCEDURE: BRAIN/HEAD WITHOUT CONTRAST 06/19/2025 REASON FOR EXAM: TRAUMA TECHNIQUE: BRAIN/HEAD WITHOUT CONTRAST Coronal and Sagittal reconstruction series were provided. One or more dose reduction techniques were used (e.g., Automated exposure control, adjustment of the mA and/or kV according to patient size, use of iterative reconstruction technique. RADIATION DOSE SUMMARY: CTDlvol: 44.99 mGy DLP: 897.35 mGycm COMPARISON: 06/12/2025 FINDINGS: No acute intracranial hemorrhage, extra-axial collection, mass effect or acute infarct. Mild generalized brain parenchymal volume loss and chronic microangiopathic changes. Atherosclerotic vascular calcifications. Orbital contents are unremarkable. Moderate left frontal scalp hematoma/contusion. No acute skull base or calvarial fracture. No mastoid effusions. Scattered mucoperiosteal thickening in the paranasal sinuses, most pronounced in the bilateral anterior ethmoid air cells and right maxillary sinus, no air-fluid levels. CT/Brain/Head without Contrast IMPRESSION: 1. No acute intracranial abnormality. 2. Moderate left frontal scalp hematoma/contusion. No calvarial fracture. 3. Sinus disease involving the right maxillary sinus and anterior ethmoids. Reading Location: [facility] CC: Dr. Surya Dumont MD; Dr. Ja Cooley MD ~ Communications Department Chair: Signed [facility] 06-19-2025 Discharge summary Note Date/Time June 19, 2025 9:20pm [facility] Medical Records Department [address] [place] [address] Emergency Department Summary 06/19/25 MR#: [id number] Acct: [id number] Name: LUIS ARMANDO GRIFFITH Rep #:[id number] 11 : 1945 79 From: Surya Dumont MD PCP: Dr. Ja Cooley MD Status:RE G ER Location: ED HPI HPI - Fall History of Present Illness Chief Complaint: Fall Narrative Narrative: 79-year-old male past medical history of Parkinson's and frequent falls presentswith his daughter after fall in the shower. He is a resident of [facility]. He has had frequent falls, at least for the last month. He sustained multiple hematomas and ecchymosis to his face. Tonight, when he fell, he sustained a laceration just above his right eyebrow. No loss of consciousness. Denies other injuries. Tetanus immunization current according to daughter. 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 200 mcg-umeclid 1 inh inhalation LIVIA Y SOB 04/12/22 Unknown History 62.5 mcg-vilant 25 mcg inhalat.powder (Trelegy Ellipta) pantoprazole 40 mg tablet,delayed 40 mg PO DAILY acid reflux 04/12/22 Unknown History release finasteride 5 mg tablet 5 mg PO DAILY urine flow Unknown History alfuzosin 10 mg tablet,extended 10 mg PO DAILY urinary retention 04/12/23 Unknown History release 24 hr cholecalciferol (vitamin D3) 25 4,000 unit PO DAILY cochran pplement 04/12/23 Unknown History mcg (1,000 unit) capsule insulin aspart U-100 100 unit/mL See Rx Instructions . Route 04/12/23 Unknown History subcutaneous solution (Novolog .COMPLEX diabetes U-100 Insulin aspart) metformin 750 mg tablet,extended 750 mg PO QHS diabete s 04/12/23 Unknown History release 24 hr insulin glargine U-300 conc 300 54 unit subcut DAILY d iabetes 06/27/24 Unknown History unit/mL (3 mL) subcutaneous pen (Toujeo Max U-300 SoloStar) ropinirole 2 mg tablet 2 mg PO TID parkinson #270 t abs 03/20/25 Unknown Rx doxepin 25 mg capsule 25 mg PO QHS nerve pain #90 caps 03/31/25 Unknown Rx albuterol sulfate 90 mcg/actuation 2 inh inhalation Q6 H PRN shortness 06/08/25 Unknown History aerosol inhaler of breath or wheezing aspirin 81 mg tablet,delayed 81 mg PO QHS heart health 06/08/25 Unknown History release (Adult Aspirin Regimen) budesonide 1 mg/2 mL suspension 1 mg inhalation Q6H SO B 06/08/25 Unknown History for nebulization (Pulmicort) carbidopa 25 mg-levodopa 100 mg 2 tab PO 4X/DAY angel sons 06/08/25 Unknown History tablet propranolol 60 mg capsule,24 60 mg PO QHS blood pressu re 06/08/25 Unknown History hr,extended release amoxicillin 875 mg-potassium 1 tab PO BID #10 tabs Unknown Rx clavulanate 125 mg tablet insulin lispro 100 unit/mL See Protocol subcut 5 Unknown History subcutaneous pen (Humalog KwikPen (U-100) Insulin) Allergy/AdvReac Type Severity Reaction Status Date / Time metoclopramide (From Reglan) Allergy Severe HYPER Verified 06/12/25 10:41 Family History Father Leukemia Surgical History History of total left knee replacement (TKR) History of left tennis elbow Hx of spinal fusion History of skin cancer Social History household members: spouse housing: house Smoking Status: Former smoker alcohol intake: never substance use type: does not use ROS ROS ED ROS Narrative Review of systems positive for frequent falls, positive forehead laceration above right eyebrow. No loss of consciousness. No other injury. Previous ecchymosis and swelling to multiple areas on face. EXAM Physical Exam Narrative Exam Narrative: GCS 15. ABCs are intact. Inspection of the right forehead does show 2.3 cm laceration above the right eyebrow without active bleeding. PERRL, EOMI. Multiple ecchymosis and swelling to areas around the eyes and face from previousfalls. Neurological examination consistent with Parkinson's. Cardiovascular examination regular rate and rhythm. Lungs clear to auscultation bilaterally. Abdomen soft and nontender. Const Vital Signs: 06/19/25 19:18 06/19/25 19:26 Temperature 98.7 F Temperature Source Oral Pulse Rate 83 Respiratory Rate 20 H Respiratory Effort Normal Respiratory Depth Normal Respiratory Pattern Normal Blood Pressure 137/66 H Blood Pressure Mean 89 Pulse Ox 93 94 Oxygen Delivery Method Room Air Room Air MDM MDM MDM Narrative Medical decision making narrative: States his tetanus immunization is current. Concern is for closed head injury versus intracranial hemorrhage. Based on the location of his laceration,I do not feel he needs dedicated facial bone CT. I reviewed the radiology report of the CT of the brain which shows no acute intracranial abnormality. There is moderate left frontal scalp hematoma contusion but no evidence of fracture. At this point in time, his wound will beclosed on his forehead just above his eyebrow. See procedure note for details. He was told to have the sutures removed in 5 to 7 days by his primary care provider return to the emergency department. They were also warned of infectionand scarring and acknowledges understanding. They will look for signs of infection as well. Return instructions to the emergency department were reviewed. I offered the patient oral analgesics here in the emergency department but he declined and will take hvip-ygw-[id number] medications at home. Disposition is discharged home in stable condition. History & Record Review Discussion w/independent historian: Patient and Family (Daughter, Sabrina) Radiography Diagnostic Testing: Clinical Impression(s) from Imaging Studies Brain CT 06/19/25 19:47 IMPRESSION: 1. No acute intracranial abnormality. 2. Moderate left frontal scalp hematoma/contusion. No calvarial fracture. 3. Sinus disease involving the right maxillary sinus and anterior ethmoids. Reading Location: [id number] Procedures Lacerations Right forehead just above eyebrow: Length: 0.87 in Depth: Skin Shape: Linear Prep: Sterile Conditions and Shure-Clens Laceration repair: Irrigated (Moderately cleansed), Lidocaine and Local Number of Sutures/Brandi: 5 Suture Information: Ethilon, Simple and 5-0 (For tensile strength) Comment: Patient tolerated procedure well Discharge Plan Triage Chief Complaint: Fall ED Provider: Surya Dumont Dx/Rx/DC Orders Clinical Impression: Frequent falls, Parkinson's disease, Forehead laceration Instructions: ED Laceration, All Closures, ED Fall Prevention Prescriptions: No Action pravastatin 80 mg tablet [...] (vitamin D3) 25 mcg (1,000 unit) capsule 4,000 unit PO DAILY alfuzosin 10 mg tablet extended release 24 hr 10 mg PO DAILY Rx Instructions: administer after the same meal each day insulin glargine U-300 conc [Toujeo Max U-300 SoloStar] 300 unit/mL (3 mL) insulin pen 54 unit subcut DAILY finasteride 5 mg tablet 5 mg PO DAILY ropinirole 2 mg tablet 2 mg PO TID Qty: 270 1RF doxepin 25 mg capsule 25 mg PO QHS Qty: 90 1RF insulin lispro [Humalog KwikPen Insulin] 100 unit/mL insulin pen See Protocol subcut Protocol: 6. Sliding Scale Insulin Custom Condition: mg/dl range Dose/Route: Number of Units Protocol Text: Custom Sliding Scale albuterol sulfate 90 mcg/actuation HFA aerosol inhaler 2 inh inhalation Q6H PRN (Reason: shortness of breath or wheezing) aspirin [Adult Aspirin Regimen] 81 mg tablet,delayed release (DR/EC) 81 mg PO QHS budesonide [Pulmicort] 1 mg/2 mL suspension for nebulization 1 mg inhalation Q6H Patient Comments: [NO ORIGINAL SIG] propranolol 60 mg capsule,extended release 24 hr 60 mg PO QHS carbidopa-levodopa 25-100 mg tablet 2 tab PO 4X/DAY amoxicillin-pot clavulanate 875-125 mg tablet 1 tab PO BID Qty: 10 0RF Primary Care Provider: Ja Cooley Referrals: Ja Cooley MD [Primary Care Provider] - 5 Days for suture removal Activity Restrictions/Additional Instructions: Egjr-cyv-zouotij medications like Tylenol or ibuprofen as needed for pain. Havesutures removed in 5 days. Look for signs of infection including fever, increased redness to area, drainage of pus from wound. Return with new or worsening symptoms. Print Language: Mauritian Disposition Disposition: Home, Self Care What to do if you have Problems For any increased pain, shortness of breath, bleeding, nausea or vomiting, chestpain, or any unexpected problems, contact your Primary Care Provider. Call [facility] ([phone]) or report to the closest Emergency Room. Call 911 if necessary. 06/19/252119 <Electronically signed by Surya Dumont MD> Cosigner Signature (if applicable): CC: Dr. Ja Cooley MD ~ Signed [facility] Work Phone: [phone] 871-443907-24-2025 Discharge summary [facility] Medical Records Department [address] [place] [address] Emergency Department Summary 06/12/25 MR#: [id number] Acct: [id number] Name: LUIS ARMANDO GRIFFITH Rep #:[id number] 82 : 1945 79 From: Maty Michele PCP: Dr. Ja Cooley MD Status:RE G ER Location: ED HPI HPI - Fall History of Present Illness Chief Complaint: Fall Informant: patient, family and EMS Narrative Narrative: Patient is an 79-year-old male with history of Parkinson's, prior stroke (left leg weakness and chronic right facial droop), dementia, proximal atrial fibrillation (not on any anticoagulation), hyperlipidemia, hypertension and neuropathy presenting with fall and head injury. Patient had 2 falls today. Hestruck his forehead slightly to the left. He is in assisted living at [facility]. Daughter is at the bedside states he falls frequently and often hitsthat side of his face. He is otherwise been in his normal state of health. States has been eating and drinking normally. Supposed to use a cane/walker butjust carries it and does not actually use it to help with his ambulation. Daughter states his ambulation is at his baseline currently. No report of any low blood sugars (was 161 earlier today). He did take 50 unitsof insulin today which is normal for him. 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 200 mcg-umeclid 1 inh inhalation LIVIA Y SOB 04/12/22 Unknown History 62.5 mcg-vilant 25 mcg inhalat.powder (Trelegy Ellipta) pantoprazole 40 mg tablet,delayed 40 mg PO DAILY acid reflux 04/12/22 Unknown History release finasteride 5 mg tablet 5 mg PO DAILY urine flow Unknown History alfuzosin 10 mg tablet,extended 10 mg PO DAILY urinary retention 04/12/23 Unknown History release 24 hr cholecalciferol (vitamin D3) 25 4,000 unit PO DAILY cochran pplement 04/12/23 Unknown History mcg (1,000 unit) capsule insulin aspart U-100 100 unit/mL See Rx Instructions . Route 04/12/23 Unknown History subcutaneous solution (Novolog .COMPLEX diabetes U-100 Insulin aspart) metformin 750 mg tablet,extended 750 mg PO QHS diabete s 04/12/23 Unknown History release 24 hr insulin glargine U-300 conc 300 54 unit subcut DAILY d iabetes 06/27/24 Unknown History unit/mL (3 mL) subcutaneous pen (Toujeo Max U-300 SoloStar) ropinirole 2 mg tablet 2 mg PO TID parkinson #270 t abs 03/20/25 Unknown Rx doxepin 25 mg capsule 25 mg PO QHS nerve pain #90 caps 03/31/25 Unknown Rx albuterol sulfate 90 mcg/actuation 2 inh inhalation Q6 H PRN shortness 06/08/25 Unknown History aerosol inhaler of breath or wheezing aspirin 81 mg tablet,delayed 81 mg PO QHS heart health 06/08/25 Unknown History release (Adult Aspirin Regimen) budesonide 1 mg/2 mL suspension 1 mg inhalation Q6H SO B 06/08/25 Unknown History for nebulization (Pulmicort) carbidopa 25 mg-levodopa 100 mg 2 tab PO 4X/DAY angel sons 06/08/25 Unknown History tablet propranolol 60 mg capsule,24 60 mg PO QHS blood pressu re 06/08/25 Unknown History hr,extended release amoxicillin 875 mg-potassium 1 tab PO BID #10 tabs Unknown Rx clavulanate 125 mg tablet insulin lispro 100 unit/mL See Protocol subcut 5 Unknown History subcutaneous pen (Humalog KwikPen (U-100) Insulin) Allergy/AdvReac Type Severity Reaction Status Date / Time metoclopramide (From Reglan) Allergy Severe HYPER Verified 06/12/25 10:41 Family History Father Leukemia Surgical History History of total left knee replacement (TKR) History of left tennis elbow Hx of spinal fusion History of skin cancer Social History household members: spouse housing: house Smoking Status: Former smoker alcohol intake: never substance use type: does not use ROS ROS ED Constitutional Constitutional ED: Denies chills or fever(s) Eyes Eyes: Reports blurry vision and other Details: Patient states he is legally blind and everything looks blurry ; Denies change in vision ENT ENT ED: Denies rhinorrhea Cardiovascular Cardiovascular: Denies chest pain Respiratory/Chest Respiratory/Chest: Denies cough Gastrointestinal Gastrointestinal: Denies nausea or vomiting Musculoskeletal Musculoskeletal: Denies arthralgias or myalgias Integumentary Reports Abrasions Neurologic Neurologic: Reports headache(s), weakness and other Details: Chronic weakness, shuffling gait and right facial droop ; Denies paresthesias Hematologic/Lymphatic Hematologic/Lymphatic: Denies easy bleeding or easy bruising EXAM Physical Exam Const Vital Signs: 06/12/25 10:40 06/12/25 10:40 06/12/25 11:33 Temperature 97.7 F L Temperature Source Oral Pulse Rate 65 70 Respiratory Rate 25 H 30 H Respiratory Effort Normal Respiratory Depth Normal Respiratory Pattern Normal Blood Pressure 116/64 Blood Pressure Mean 81 Pulse Ox 94 96 Oxygen Delivery Method Room Air 06/12/25 11:40 06/12/25 11:45 06/12/25 11:46 Temperature Temperature Source Pulse Rate 71 65 65 Respiratory Rate 18 28 H 32 H Respiratory Effort Respiratory Depth Respiratory Pattern Blood Pressure 133/64 H 133/64 H Blood Pressure Mean 87 83 Pulse Ox 98 94 95 Oxygen Delivery Method Room Air Room Air 06/12/25 12:00 06/12/25 12:15 06/12/25 12:30 Temperature Temperature Source Pulse Rate 68 79 65 Respiratory Rate 26 H 23 H 17 Respiratory Effort Respiratory Depth Respiratory Pattern Blood Pressure 133/63 H Blood Pressure Mean 83 Pulse Ox 97 Oxygen Delivery Method Room Air 06/12/25 12:45 06/12/25 13:00 06/12/25 13:15 Temperature Temperature Source Pulse Rate 68 61 70 Respiratory Rate 25 H 24 H 17 Respiratory Effort Respiratory Depth Respiratory Pattern Blood Pressure 153/64 H Blood Pressure Mean 93 Pulse Ox 98 97 96 Oxygen Delivery Method Room Air 06/12/25 13:30 06/12/25 13:45 06/12/25 14:00 Temperature 98.3 F Temperature Source Pulse Rate 63 65 69 Respiratory Rate 17 19 H 14 Respiratory Effort Respiratory Depth Respiratory Pattern Blood Pressure 118/70 Blood Pressure Mean 86 Pulse Ox 97 97 Oxygen Delivery Method Room Air Positive well nourished and well developed General Appearance ED: well developed and NAD HEENT HEENT Narrative: Cephalhematoma and abrasion to the left anterior forehead. No signs of basilar skull fracture with no hemotympanum, rhinorrhea, De La Torre sign or raccoon eyes. Moist mucosal membrane Eyes PERRL and EOMs intact bilaterally Neck supple Neck Narrative: No step-off sign General: Negative for tenderness Chest Wall inspection of chest normal and palpation of chest normal Resp normal respiratory effort Cardio regular rate, regular rhythm and no murmurs GI non-tender and non-distended Extremity Extremity Narrative: Pelvis is stable. No deformity of the lower extremities. No pain with range ofmotion of the lower extremities. No pain over the major joints of the upper extremity. No deformity present. Neuro oriented x3, moves all extremities, no focal motor deficits and no sensory deficits noted Neuro Narrative: No drift of the extremities. Right facial droop present. This is chronic per family and chart review. Speech is slightly slowed but very understandable. Daughter states this ishis baseline speech Stacy Coma Scale: document GCS findings Spontaneous Obeys Commands Oriented 15 Sensorium / Orientation: alert Motor Exam: general weakness Psych mental status grossly normal and thought process normal Skin Skin Narrative: Forehead abrasion. No other wounds appreciated Trauma: abrasion MDM MDM MDM Narrative Medical decision making narrative: Patient evaluated for 2 mechanical falls with associated head injury. Patient has a history of frequent falls associated with his Parkinson's and per family report is not particularly compliant with using his walker appropriately. Differential includes intracranial hemorrhage, skull fracture, mechanical fall, UTI, hypoglycemia, sepsis and debility. EKG obtained which does not show any acute ischemic process. Low suspicion of cardiogenic cause of his falls. He is not claiming chest pain do not think requires high-sensitivity troponins or further cardiac workup at this time. Remains hemodynamically stable in emergency room. CBC normal. BMP shows a glucose of 202 but otherwise normal. Normal anion gap. No JOE present. CT of the brain and cervical spine do not show any acute traumatic process. Spoke with patient's daughter and the patient they felt that he needs a higher level of care/half-way as he is only in assisted living. They state thatat this time they think that he is fine over they will reach out to [employer] if he can move over to the memory care unit (they state he would qualify forbecause of his Parkinson's) which is skilled living instead of assisted living. At this time they feel safe with him going back to his assisted living facility. Will ambulate patient. Patient is well with ambulation. Will discharge home. Return precautions. Daughter will take him back to assisted living Lab Data Attestation: I reviewed the patient's lab results. Labs: Laboratory Results - last 24 hr 06/12/25 06/12/25 06/12/25 10:44 10:50 12:43 WBC 9.6 RBC 4.50 L Hgb 13.6 Hct 41.3 MCV 91.8 MCH 30.2 MCHC 32.9 RDW Std Deviation 42.7 RDW Coeff of Nori 12.9 Plt Count 243 MPV 10.4 Immature Gran % (Auto) 0.600 Neut % (Auto) 54.7 Lymph % (Auto) 32.8 [place] % (Auto) 9.4 Eos % (Auto) 1.9 Baso % (Auto) 0.6 Absolute Neuts (auto) 5.2 Absolute Lymphs (auto) 3.14 Nucleated RBC % 0 Sodium 139 Potassium 4.3 Chloride 102 Carbon Dioxide 26.6 Anion Gap 10 BUN 24 H Creatinine 0.94 Estim Creat Clear Calc 79.57 Est GFR (MDRD) Non-Af 82 BUN/Creatinine Ratio 25.6 H Glucose 202 H Calcium 9.1 Urine Color Yellow Urine Clarity Clear Urine pH 6.0 Ur Specific [place] 1.025 Urine Protein 15 H Urine Glucose (UA) Normal Urine Ketones 15 H Urine Occult Blood Negative Urine Nitrite Negative Urine Bilirubin Negative Urine Urobilinogen Normal Ur Leukocyte Esterase 25 H Urine RBC 0 SEEN Urine WBC 0-5 SEEN Ur Squamous Epith Cells 0-5 SEEN Urine Bacteria 0 SEEN Urine Mucus 0 SEEN POC Glucose 186 H Radiography Diagnostic Testing: Clinical Impression(s) from Imaging Studies Brain CT 06/12/25 10:43 IMPRESSION: There is no acute intracranial abnormality. Bilateral mastoid ethmoid air cell sinus disease is similar to the prior. Subcutaneous edema is noted in the left frontal region with no underlying fracture. Reading Location: [facility] Cervical Spine CT 06/12/25 10:43 IMPRESSION: There is loss of the lordosis. There is grade 1 spondylolisthesis at C7-T1, 0.3 cm. There is loss of disc height from C 3-7. There is moderate bilateral foraminal narrowing from C3-6 secondary to bony hypertrophy. There is no visible acute traumatic injury. Reading Location: [facility] Rhythm Strip Rhythm Strip: Sinus Rhythm Rate: 64 Ectopy: None EKG Initial EKG: Attestation: I personally reviewed and interpreted this EKG as follows: Interpretation: Sinus Rhythm Comments: Normal sinus rhythm at a rate of 64 bpm Normal axis Normal ST segments Right bundle branch block present Compared to prior EKG on 06/08/2025, no acute change Discharge Plan Triage Chief Complaint: Fall Other Complaint: Confusion ED Provider: Maty Dial Dx/Rx/DC Orders Clinical Impression: Fall, History of Parkinson's disease, Forehead contusion Instructions: ED Facial Contusion, ED Fall Prevention Prescriptions: No Action pravastatin 80 mg tablet [...] (vitamin D3) 25 mcg (1,000 unit) capsule 4,000 unit PO DAILY alfuzosin 10 mg tablet extended release 24 hr 10 mg PO DAILY Rx Instructions: administer after the same meal each day insulin glargine U-300 conc [Toujeo Max U-300 SoloStar] 300 unit/mL (3 mL) insulin pen 54 unit subcut DAILY finasteride 5 mg tablet 5 mg PO DAILY ropinirole 2 mg tablet 2 mg PO TID Qty: 270 1RF doxepin 25 mg capsule 25 mg PO QHS Qty: 90 1RF insulin lispro [Humalog KwikPen Insulin] 100 unit/mL insulin pen See Protocol subcut Protocol: 6. Sliding Scale Insulin Custom Condition: mg/dl range Dose/Route: Number of Units Protocol Text: Custom Sliding Scale albuterol sulfate 90 mcg/actuation HFA aerosol inhaler 2 inh inhalation Q6H PRN (Reason: shortness of breath or wheezing) aspirin [Adult Aspirin Regimen] 81 mg tablet,delayed release (DR/EC) 81 mg PO QHS budesonide [Pulmicort] 1 mg/2 mL suspension for nebulization 1 mg inhalation Q6H Patient Comments: [NO ORIGINAL SIG] propranolol 60 mg capsule,extended release 24 hr 60 mg PO QHS carbidopa-levodopa 25-100 mg tablet 2 tab PO 4X/DAY amoxicillin-pot clavulanate 875-125 mg tablet 1 tab PO BID Qty: 10 0RF Primary Care Provider: Ja Cooely Referrals: Ja Cooley MD [Primary Care Provider] - Print Language: Mauritian Disposition Disposition: Home, Self Care What to do if you have Problems For any increased pain, shortness of breath, bleeding, nausea or vomiting, chestpain, or any unexpected problems, contact your Primary Care Provider. Call [facility] ([phone]) or report tothe closest Emergency Room. Call 911 if necessary. 06/12/25 1410 Cosigner Signature (if applicable): CC: Dr. Ja Cooley MD ~ Signed [facility]07-24-2025 Discharge summary [facility] Note Date/Time June 12, 2025 2:10 pm [facility] Medical Records Department [address] [place] [address] Emergency Department Summary 06/12/25 MR#: [id number] Acct: [id number] Name: LUIS ARMANDO GRIFFITH Rep #:[id number] : 1945 79 From: Maty Michele PCP: Dr. Ja Cooley MD Status:RE G ER Location: ED HPI HPI - Fall History of Present Illness Chief Complaint: Fall Informant: patient, family and EMS Narrative Narrative: Patient is an 79-year-old male with history of Parkinson's, prior stroke (left leg weakness and chronic right facial droop), dementia, proximal atrial fibrillation (not on any anticoagulation), hyperlipidemia, hypertension and neuropathy presenting with fall and head injury. Patient had 2 falls today. [place] his forehead slightly to the left. He is in assisted living at [facility]. Daughter is at the bedside states he falls frequently and often hitsthat side of his face. He is otherwise been in his normal state of health. States has been eating and drinking normally. Supposed to use a cane/walker butjust carries it and does not actually use it to help with his ambulation. Daughter states his ambulation is at his baseline currently. No report of any low blood sugars (was 161 earlier today). He did take 50 unitsof insulin today which is normal for him. 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 200 mcg-umeclid 1 inh inhalation LIVIA Y SOB 04/12/22 Unknown History 62.5 mcg-vilant 25 mcg inhalat.powder (Trelegy Ellipta) pantoprazole 40 mg tablet,delayed 40 mg PO DAILY acid reflux 04/12/22 Unknown History release finasteride 5 mg tablet 5 mg PO DAILY urine flow Unknown History alfuzosin 10 mg tablet,extended 10 mg PO DAILY urinary retention 04/12/23 Unknown History release 24 hr cholecalciferol (vitamin D3) 25 4,000 unit PO DAILY cochran pplement 04/12/23 Unknown History mcg (1,000 unit) capsule insulin aspart U-100 100 unit/mL See Rx Instructions . Route 04/12/23 Unknown History subcutaneous solution (Novolog .COMPLEX diabetes U-100 Insulin aspart) metformin 750 mg tablet,extended 750 mg PO QHS diabete s 04/12/23 Unknown History release 24 hr insulin glargine U-300 conc 300 54 unit subcut DAILY d iabetes 06/27/24 Unknown History unit/mL (3 mL) subcutaneous pen (Toujeo Max U-300 SoloStar) ropinirole 2 mg tablet 2 mg PO TID parkinson #270 t abs 03/20/25 Unknown Rx doxepin 25 mg capsule 25 mg PO QHS nerve pain #90 caps 03/31/25 Unknown Rx albuterol sulfate 90 mcg/actuation 2 inh inhalation Q6 H PRN shortness 06/08/25 Unknown History aerosol inhaler of breath or wheezing aspirin 81 mg tablet,delayed 81 mg PO QHS heart health 06/08/25 Unknown History release (Adult Aspirin Regimen) budesonide 1 mg/2 mL suspension 1 mg inhalation Q6H SO B 06/08/25 Unknown History for nebulization (Pulmicort) carbidopa 25 mg-levodopa 100 mg 2 tab PO 4X/DAY angel sons 06/08/25 Unknown History tablet propranolol 60 mg capsule,24 60 mg PO QHS blood pressu re 06/08/25 Unknown History hr,extended release amoxicillin 875 mg-potassium 1 tab PO BID #10 tabs Unknown Rx clavulanate 125 mg tablet insulin lispro 100 unit/mL See Protocol subcut 5 Unknown History subcutaneous pen (Humalog KwikPen (U-100) Insulin) Allergy/AdvReac Type Severity Reaction Status Date / Time metoclopramide (From Reglan) Allergy Severe HYPER Verified 06/12/25 10:41 Family History Father Leukemia Surgical History History of total left knee replacement (TKR) History of left tennis elbow Hx of spinal fusion History of skin cancer Social History household members: spouse housing: house Smoking Status: Former smoker alcohol intake: never substance use type: does not use ROS ROS ED Constitutional Constitutional ED: Denies chills or fever(s) Eyes Eyes: Reports blurry vision and other Details: Patient states he is legally blind and everything looks blurry ; Denies change in vision ENT ENT ED: Denies rhinorrhea Cardiovascular Cardiovascular: Denies chest pain Respiratory/Chest Respiratory/Chest: Denies cough Gastrointestinal Gastrointestinal: Denies nausea or vomiting Musculoskeletal Musculoskeletal: Denies arthralgias or myalgias Integumentary Reports Abrasions Neurologic Neurologic: Reports headache(s), weakness and other Details: Chronic weakness, shuffling gait and right facial droop ; Denies paresthesias Hematologic/Lymphatic Hematologic/Lymphatic: Denies easy bleeding or easy bruising EXAM Physical Exam Const Vital Signs: 06/12/25 10:40 06/12/25 10:40 06/12/25 11:33 Temperature 97.7 F L Temperature Source Oral Pulse Rate 65 70 Respiratory Rate 25 H 30 H Respiratory Effort Normal Respiratory Depth Normal Respiratory Pattern Normal Blood Pressure 116/64 Blood Pressure Mean 81 Pulse Ox 94 96 Oxygen Delivery Method Room Air 06/12/25 11:40 06/12/25 11:45 06/12/25 11:46 Temperature Temperature Source Pulse Rate 71 65 65 Respiratory Rate 18 28 H 32 H Respiratory Effort Respiratory Depth Respiratory Pattern Blood Pressure 133/64 H 133/64 H Blood Pressure Mean 87 83 Pulse Ox 98 94 95 Oxygen Delivery Method Room Air Room Air 06/12/25 12:00 06/12/25 12:15 06/12/25 12:30 Temperature Temperature Source Pulse Rate 68 79 65 Respiratory Rate 26 H 23 H 17 Respiratory Effort Respiratory Depth Respiratory Pattern Blood Pressure 133/63 H Blood Pressure Mean 83 Pulse Ox 97 Oxygen Delivery Method Room Air 06/12/25 12:45 06/12/25 13:00 06/12/25 13:15 Temperature Temperature Source Pulse Rate 68 61 70 Respiratory Rate 25 H 24 H 17 Respiratory Effort Respiratory Depth Respiratory Pattern Blood Pressure 153/64 H Blood Pressure Mean 93 Pulse Ox 98 97 96 Oxygen Delivery Method Room Air 06/12/25 13:30 06/12/25 13:45 06/12/25 14:00 Temperature 98.3 F Temperature Source Pulse Rate 63 65 69 Respiratory Rate 17 19 H 14 Respiratory Effort Respiratory Depth Respiratory Pattern Blood Pressure 118/70 Blood Pressure Mean 86 Pulse Ox 97 97 Oxygen Delivery Method Room Air Positive well nourished and well developed General Appearance ED: well developed and NAD HEENT HEENT Narrative: Cephalhematoma and abrasion to the left anterior forehead. No signs of basilar skull fracture with no hemotympanum, rhinorrhea, De La Torre sign or raccoon eyes. Moist mucosal membrane Eyes PERRL and EOMs intact bilaterally Neck supple Neck Narrative: No step-off sign General: Negative for tenderness Chest Wall inspection of chest normal and palpation of chest normal Resp normal respiratory effort Cardio regular rate, regular rhythm and no murmurs GI non-tender and non-distended Extremity Extremity Narrative: Pelvis is stable. No deformity of the lower extremities. No pain with range ofmotion of the lower extremities. No pain over the major joints of the upper extremity. No deformity present. Neuro oriented x3, moves all extremities, no focal motor deficits and no sensory deficits noted Neuro Narrative: No drift of the extremities. Right facial droop present. This is chronic per family and chart review. Speech is slightly slowed but very understandable. Daughter states this is his baseline speech [place] Coma Scale: document GCS findings Spontaneous Obeys Commands Oriented 15 Sensorium / Orientation: alert Motor Exam: general weakness Psych mental status grossly normal and thought process normal Skin Skin Narrative: Forehead abrasion. No other wounds appreciated Trauma: abrasion MDM MDM MDM Narrative Medical decision making narrative: Patient evaluated for 2 mechanical falls with associated head injury. Patient has a history of frequent falls associated with his Parkinson's and per family report is not particularly compliant with using his walker appropriately. Differential includes intracranial hemorrhage, skull fracture, mechanical fall, UTI, hypoglycemia, sepsis and debility. EKG obtained which does not show any acute ischemic process. Low suspicion of cardiogenic cause of his falls. He is not claiming chest pain do not think requires high-sensitivity troponins or further cardiac workup at this time. Remains hemodynamically stable in emergency room. CBC normal. BMP shows a glucose of 202 but otherwise normal. Normal anion gap. No JOE present. CT of the brain and cervical spine do not show any acute traumatic process. Spoke with patient's daughter and the patient they felt that he needs a higher level of care/half-way as he is only in assisted living. They state thatat this time they think that he is fine over they will reach out to [employer] if he can move over to the memory care unit (they state he would qualify forbecause of his Parkinson's) which is skilled living instead of assisted living. At this time they feel safe with him going back to his assisted living facility. Will ambulate patient. Patient is well with ambulation. Will discharge home. Return precautions. Daughter will take him back to assisted living Lab Data Attestation: I reviewed the patient's lab results. Labs: Laboratory Results - last 24 hr 06/12/25 06/12/25 06/12/25 10:44 10:50 12:43 WBC 9.6 RBC 4.50 L Hgb 13.6 Hct 41.3 MCV 91.8 MCH 30.2 MCHC 32.9 RDW Std Deviation 42.7 RDW Coeff of Nori 12.9 Plt Count 243 MPV 10.4 Immature Gran % (Auto) 0.600 Neut % (Auto) 54.7 Lymph % (Auto) 32.8 [place] % (Auto) 9.4 Eos % (Auto) 1.9 Baso % (Auto) 0.6 Absolute Neuts (auto) 5.2 Absolute Lymphs (auto) 3.14 Nucleated RBC % 0 Sodium 139 Potassium 4.3 Chloride 102 Carbon Dioxide 26.6 Anion Gap 10 BUN 24 H Creatinine 0.94 Estim Creat Clear Calc 79.57 Est GFR (MDRD) Non-Af 82 BUN/Creatinine Ratio 25.6 H Glucose 202 H Calcium 9.1 Urine Color Yellow Urine Clarity Clear Urine pH 6.0 Ur Specific [place] 1.025 Urine Protein 15 H Urine Glucose (UA) Normal Urine Ketones 15 H Urine Occult Blood Negative Urine Nitrite Negative Urine Bilirubin Negative Urine Urobilinogen Normal Ur Leukocyte Esterase 25 H Urine RBC 0 SEEN Urine WBC 0-5 SEEN Ur Squamous Epith Cells 0-5 SEEN Urine Bacteria 0 SEEN Urine Mucus 0 SEEN POC Glucose 186 H Radiography Diagnostic Testing: Clinical Impression(s) from Imaging Studies Brain CT 06/12/25 10:43 IMPRESSION: There is no acute intracranial abnormality. Bilateral mastoid ethmoid air cell sinus disease is similar to the prior. Subcutaneous edema is noted in the left frontal region with no underlying fracture. Reading Location: [facility] Cervical Spine CT 06/12/25 10:43 IMPRESSION: There is loss of the lordosis. There is grade 1 spondylolisthesis at C7-T1, 0.3 cm. There is loss of disc height from C 3-7. There is moderate bilateral foraminal narrowing from C3-6 secondary to bony hypertrophy. There is no visible acute traumatic injury. Reading Location: [facility] Rhythm Strip Rhythm Strip: Sinus Rhythm Rate: 64 Ectopy: None EKG Initial EKG: Attestation: I personally reviewed and interpreted this EKG as follows: Interpretation: Sinus Rhythm Comments: Normal sinus rhythm at a rate of 64 bpm Normal axis Normal ST segments Right bundle branch block present Compared to prior EKG on 06/08/2025, no acute change Discharge Plan Triage Chief Complaint: Fall Other Complaint: Confusion ED Provider: Maty Dial Dx/Rx/DC Orders Clinical Impression: Fall, History of Parkinson's disease, Forehead contusion Instructions: ED Facial Contusion, ED Fall Prevention Prescriptions: No Action pravastatin 80 mg tablet [...] (vitamin D3) 25 mcg (1,000 unit) capsule 4,000 unit PO DAILY alfuzosin 10 mg tablet extended release 24 hr 10 mg PO DAILY Rx Instructions: administer after the same meal each day insulin glargine U-300 conc [Toujeo Max U-300 SoloStar] 300 unit/mL (3 mL) insulin pen 54 unit subcut DAILY finasteride 5 mg tablet 5 mg PO DAILY ropinirole 2 mg tablet 2 mg PO TID Qty: 270 1RF doxepin 25 mg capsule 25 mg PO QHS Qty: 90 1RF insulin lispro [Humalog KwikPen Insulin] 100 unit/mL insulin pen See Protocol subcut Protocol: 6. Sliding Scale Insulin Custom Condition: mg/dl range Dose/Route: Number of Units Protocol Text: Custom Sliding Scale albuterol sulfate 90 mcg/actuation HFA aerosol inhaler 2 inh inhalation Q6H PRN (Reason: shortness of breath or wheezing) aspirin [Adult Aspirin Regimen] 81 mg tablet,delayed release (DR/EC) 81 mg PO QHS budesonide [Pulmicort] 1 mg/2 mL suspension for nebulization 1 mg inhalation Q6H Patient Comments: [NO ORIGINAL SIG] propranolol 60 mg capsule,extended release 24 hr 60 mg PO QHS carbidopa-levodopa 25-100 mg tablet 2 tab PO 4X/DAY amoxicillin-pot clavulanate 875-125 mg tablet 1 tab PO BID Qty: 10 0RF Primary Care Provider: Ja Cooley Referrals: Ja Cooley MD [Primary Care Provider] - Print Language: Mauritian Disposition Disposition: Home, Self Care What to do if you have Problems For any increased pain, shortness of breath, bleeding, nausea or vomiting, chestpain, or any unexpected problems, contact your Primary Care Provider. Call [facility] ([phone]) or report to the closest Emergency Room. Call 911 if necessary. 06/12/25 1410 <Electronically signed by Maty Dial DO> Cosigner Signature (if applicable): CC: Dr. Ja Cooley MD ~ Signed [facility] Work Phone: [phone]) 594-612507-24-2025 Radiology Diagnostic study note [facility] Imaging Services [address] [place] [address] Spine Cervical without Contras MR#: [id number] Acct: [id number] Name: LUIS ARMANDO GRIFFITH Rep #: [id number] : 1945 M 79 From: Tez Spencer MD PCP: Dr. Ja Cooley MD Status: ND E ER Study:Spine Cervical without Contras Date of Exam: 06/12/25 Exam# [id number] Ordering Dr: Lawrence Dial DO PROCEDURE: SPINE CERVICAL WITHOUT CONTRAS 06/12/2025 REASON FOR EXAM: HEAD TRAUMA , TECHNIQUE: SPINE CERVICAL WITHOUT CONTRAS Coronal and Sagittal reconstruction series were provided. One or more dose reduction techniques were used (e.g., Automated exposure control, adjustment of the mA and/or kV according to patient size, use of iterative reconstruction technique. RADIATION DOSE SUMMARY: Not reported COMPARISON: June 08, 2025 CT FINDINGS: There is loss of the lordosis. There is grade 1 spondylolisthesis at C7-T1, 0.3cm. There is loss ofdisc height from C 3-7. There is moderate bilateral foraminal narrowing from C3-6 secondary to bony hypertrophy. There is no acute fracture. Soft tissues are unremarkable. CT/Spine Cervical without Contras IMPRESSION: There is loss of the lordosis. There is grade 1 spondylolisthesis at C7-T1, 0.3 cm. There is loss of disc height from C 3-7. There is moderate bilateral foraminal narrowing from C3-6 secondary to bony hypertrophy. There is no visible acute traumatic injury. Reading Location: [facility] CC: Dr. Maty Dial DO; Dr. Ja Cooley MD ~ Communications Department Chair: Signed [facility]07-24-2025 Radiology Diagnostic study note [facility] Imaging Services [address] [place] [id number] Brain/Head without Contrast MR#: [id number] Acct: [id number] Name: LUIS ARMANDO GRIFFITH Rep #: [id number] : 1945 M 79 From: Tez Spencer MD PCP: Dr. Ja Cooley MD Status: ND E ER Study:Brain/Head without Contrast Date of Exa m: 06/12/25 Exam# [id number] Ordering Dr: Lawrence Dial DO EXAM: NONCONTRAST CT SCAN OF THE HEAD CLINICAL HISTORY: Head trauma COMPARISON: June 08, 2025 TECHNIQUE: Serial axial series through the head were obtained without contrast. 2-D coronaland sagittal reformats were then obtained. FINDINGS: Brain: There is no acute large territorial infarct, intracranial hemorrhage, midline shift or mass effect. There are atherosclerotic vascular calcifications involving the bilateral carotid siphons.The sella and pineal gland regions appear unremarkable. There is no evidence of cerebellar tonsillar herniation. Ventricles: There is no acute hydrocephalus. Basilar cisterns are patent. Paranasal sinuses: Bilateral mastoid ethmoid air cell sinus disease is similar to the prior. Mastoid air cells: Well-aerated. Calvarium: The bony calvarium is intact. Subcutaneous edema is noted in the left frontal region with no underlying fracture. Orbits: The bilateral globes are symmetric, without retrobulbar compressive masslesion or hemorrhage. CT/Brain/Head without Contrast IMPRESSION: There is no acute intracranial abnormality. Bilateral mastoid ethmoid air cell sinus disease is similar to the prior. Subcutaneous edema is noted in the left frontal region with no underlying fracture. Reading Location: [facility] CC: Dr. Maty Dial DO; Dr. Ja Cooley MD ~ Communications Department Chair: Signed [facility]07-21-2025 Discharge summary [facility] Medical Records Department [address] [place] [address] Instructions for Home/Discharge Instructions 06/09/25 1610 MR#: [id number] Acct: [id number] Name: LUIS ARMANDO GRIFFITH Rep #:[id number] : 1945 79 From: Daphnie Narayanan MD PCP: Dr. Ja Cooley MD Status:AD M SANDHYA Discharge Instructions DC O2, CPAP, BIPAP needs Home O2 Discharge instructions: No Dressing / Incision Discharge Activity: Return to Normal Activity Weight Bearing Status: Weight bearing as tolerated Dressing / Incision Call your doctor if you observe: Fever of 101 or Higher, Shortness of breath andSwelling in the ankles Follow Up Care Test Results: Test results from this visit will be discussed in further detail at your follow- up appointment, if applicable. Discharge Plan Admission Admit Date/Time: 06/08/25 21:40 Primary Reason for Your Visit: syncope Attending Provider: Daphnie Narayanan Primary Care Provider: Ja Cooley Consulting Providers: Geo Garza; Daphnie Narayanan Instructions Patient Instructions: Diagnosing Syncope Discharge Orders/Prescriptions Prescriptions: New amoxicillin-pot clavulanate 875-125 mg tablet 1 tab PO BID Qty: 10 0RF Continued pravastatin 80 mg tablet 80 mg PO [...] (vitamin D3) 25 mcg (1,000 unit) capsule 4,000 unit PO DAILY alfuzosin 10 mg tablet extended release 24 hr 10 mg PO DAILY Rx Instructions: administer after the same meal each day insulin glargine U-300 conc [Toujeo Max U-300 SoloStar] 300 unit/mL (3 mL) insulin pen 54 unit subcut DAILY finasteride 5 mg tablet 5 mg PO DAILY ropinirole 2 mg tablet 2 mg PO TID Qty: 270 1RF doxepin 25 mg capsule 25 mg PO QHS Qty: 90 1RF albuterol sulfate 90 mcg/actuation HFA aerosol inhaler 2 inh inhalation Q6H PRN (Reason: shortness of breath or wheezing) aspirin [Adult Aspirin Regimen] 81 mg tablet,delayed release (DR/EC) 81 mg PO QHS budesonide [Pulmicort] 1 mg/2 mL suspension for nebulization 1 mg inhalation Q6H Patient Comments: [NO ORIGINAL SIG] propranolol 60 mg capsule,extended release 24 hr 60 mg PO QHS carbidopa-levodopa 25-100 mg tablet 2 tab PO 4X/DAY Referrals / Follow Up: Ja Cooley MD [Primary Care Provider] - Within 1 Week Disposition Disposition (needs filled in before D/C Order can be placed): Assisted Living 06/09/25 1611Daphnie Narayanan MD CC: Dr. Geo Garza DO; Dr. Ja Cooley MD; Dr. Daphnie Narayanan MD ~ Signed [facility]07-21-2025 [facility] History and physical note Author Geo Reyes [facility] Note Date/Time June 09, 2025 6:04 am [facility] Medical Records Department [address] [place] [address] H&P Exam - Hospitalist 06/08/252109 MR#: [id number] Acct: [id number] Name: LUIS ARMANDO GRIFFITH Rep #:[id number] : 1945 79 From: Geo Marin DO PCP: Dr. Ja Cooley MD Status:AD M [facility] Location: [address] - General General Date of Admission: 06/08/25 Date of Service: 06/08/25 Chief Complaint: Syncope with Collapse. HPI Narrative LUIS ARMANDO GRIFFITH, is a 79 M with a past medical history of essential hypertension; on propranolol, hyperlipidemia; pravastatin, obesity (class II); with BMI of 35.9 this admission, former tobacco abuse, DM-2; of unknown control on insulin glargine 60U sq daily, insulin aspart SSI and metformin, diabetic neuropathy, paroxysmal atrial fibrillation; not on anticoagulation, history of RBBB, Parkinson's disease; on carbidopa-levodopa QID plus ropinirole BID, history of dementia, depression; on doxepin, BPH; on finasteride and alfuzosin and OA; withhistory of Left TKR plus spinal fusion with subsequent chronic back pain on hydrocodone-acetaminophen prn QID who presents to [facility] ER complaining of syncope with collapse. Mr. Flower reports his symptoms began while he was in his rollator at his extended care facility when he began to feel lightheaded and the next thing he remembers is waking up on the floor. He also admits to associated headache withposterior scalp hematoma with persistent lethargy. He denies associated focal neurologic deficits, paresthesias, neck pain, chest pain, palpitations, heart racing, lower extremity edema, shortness of breath, abdominal pain, nausea, vomiting, diarrhea, constipation, dysuria, hematuria or rash. In the ER he was noted to have a head CT without contrast that revealed no acute intracranial abnormality with small Left posterior scalp hematoma in addition to ethmoid and maxillary sinus disease consistent with Acute Sinusitis in addition to CT scan of the C-spine which revealed no acute osseous abnormality of the cervical spinewith multilevel degenerative changes and a CXR that revealed low lung volumes without definite evidence of an acute cardiopulmonary abnormality. He was then diagnosed with Syncope and Collapse in the setting of chronic Parkinson's disease suspected to be due at least in part to Acute Sinusitis in addition to Dehydration evidenced by BUN/creatinine ratio of 26.1 present on admission and he was then admitted to the PCU under observation status for ongoing care for stay that is expected to be less than 2 midnights. [facility] Medical History Parkinson's disease Right bundle branch block (RBBB) Obesity Type 2 diabetes mellitus Essential (primary) hypertension Cataract Back problem Arthritis HLD (hyperlipidemia) Paroxysmal atrial fibrillation Home Medications ?Medication ?Instructions ?Recorded ?Last Taken ?Type pravastatin 80 mg tablet 80 mg PO QDAY cholesterol Unknown History fluticasone fur. 200 mcg-umeclid 1 inh inhalation LIVIA Y SOB 04/12/22 Unknown History 62.5 mcg-vilant 25 mcg inhalat.powder (Trelegy Ellipta) pantoprazole 40 mg tablet,delayed 40 mg PO DAILY acid reflux 04/12/22 Unknown History release finasteride 5 mg tablet 5 mg PO DAILY urine flow Unknown History alfuzosin 10 mg tablet,extended 10 mg PO DAILY urinary retention 04/12/23 Unknown History release 24 hr cholecalciferol (vitamin D3) 25 4,000 unit PO DAILY cochran pplement 04/12/23 Unknown History mcg (1,000 unit) capsule insulin aspart U-100 100 unit/mL See Rx Instructions . Route 04/12/23 Unknown History subcutaneous solution (Novolog .COMPLEX diabetes U-100 Insulin aspart) metformin 750 mg tablet,extended 750 mg PO QHS diabete s 04/12/23 Unknown History release 24 hr insulin glargine U-300 conc 300 54 unit subcut DAILY d iabetes 06/27/24 Unknown History unit/mL (3 mL) subcutaneous pen (Toujeo Max U-300 SoloStar) ropinirole 2 mg tablet 2 mg PO TID parkinson #270 t abs 03/20/25 Unknown Rx doxepin 25 mg capsule 25 mg PO QHS nerve pain #90 caps 03/31/25 Unknown Rx albuterol sulfate 90 mcg/actuation 2 inh inhalation Q6 H PRN shortness 06/08/25 Unknown History aerosol inhaler of breath or wheezing aspirin 81 mg tablet,delayed 81 mg PO QHS heart health 06/08/25 Unknown History release (Adult Aspirin Regimen) budesonide 1 mg/2 mL suspension 1 mg inhalation Q6H SO B 06/08/25 Unknown History for nebulization (Pulmicort) carbidopa 25 mg-levodopa 100 mg 2 tab PO 4X/DAY angel sons 06/08/25 Unknown History tablet propranolol 60 mg capsule,24 60 mg PO QHS blood pressu re 06/08/25 Unknown History hr,extended release Allergy/AdvReac Type Severity Reaction Status Date / Time metoclopramide (From Reglan) Allergy Severe HYPER Verified 06/08/25 18:03 Family History Father Leukemia Surgical History History of total left knee replacement (TKR) History of left tennis elbow Hx of spinal fusion History of skin cancer Social History household members: spouse housing: house Smoking Status: Former smoker alcohol intake: never substance use type: does not use ROS ROS Narrative Review of Systems: Constitutional: Patient admits to lethargy but he denies fever or chills. Eyes: Patient denies changes in vision or discharge from eyes. ENT: Patient denies runny nose, sore throat or ear pain. Resp: Patient denies shortness of breath or cough. CV: Patient denies admits to syncopal event with LOC as per HPI. He denies chest pain, palpitations, heart racing or lower extremity edema. GI: Patient denies abdominal pain, nausea, vomiting, diarrhea or constipation. : Patient denies dysuria, hematuria urinary frequency. MSK: Patient denies arthralgias or myalgias. Skin: Patient has Left posterior scalp hematoma as per HPI. He denies rash. Psych: Patient denies symptoms of uncontrolled depression or anxiety. Neuro: Patient admits to headache but he denies paresthesias or focal neurologicdeficits. Allergy: Patient denies lip swelling, tongue swelling or urticaria. Hematology: Patient denies easy bleeding or easy bruisability. Endocrinology: Patient denies polyuria, polydipsia, polyphagia or heat/cold intolerance. 14 point ROS otherwise negative except for positives noted above in HPI. Vital Signs Vital Signs Vital Signs: 06/08/25 18:03 06/08/25 18:06 06/08/25 19:57 Temperature 98.3 F Temperature Source Oral Pulse Rate 95 Pulse Rate [Lying] 99 Pulse Rate [Sitting (for 1 minute prior to obtaining)] 98 Pulse Rate [Standing (for 1 minute prior to obtaining)] 99 Respiratory Rate 24 H Respiratory Effort Normal Respiratory Depth Normal Respiratory Pattern Normal Blood Pressure 163/69 H Blood Pressure [Lying] 151/76 H Blood Pressure [Sitting (for 1 minute prior to obtaining)] 145/79 H Blood Pressure [Standing (for 1 minute prior to obtaining)] 155/88 H Blood Pressure Mean 100 Blood Pressure Mean [Lying] 101 Blood Pressure Mean [Sitting (for 1 minute prior to obtaining)] 101 Blood Pressure Mean [Standing (for 1 minute prior to obtaining)] 110 Pulse Ox 94 Oxygen Delivery Method Room Air Room Air 06/08/25 20:02 Temperature Temperature Source Pulse Rate 97 Pulse Rate [Lying] Pulse Rate [Sitting (for 1 minute prior to obtaining)] Pulse Rate [Standing (for 1 minute prior to obtaining)] Respiratory Rate Respiratory Effort Respiratory Depth Respiratory Pattern Blood Pressure 155/88 H Blood Pressure [Lying] Blood Pressure [Sitting (for 1 minute prior to obtaining)] Blood Pressure [Standing (for 1 minute prior to obtaining)] Blood Pressure Mean 110 Blood Pressure Mean [Lying] Blood Pressure Mean [Sitting (for 1 minute prior to obtaining)] Blood Pressure Mean [Standing (for 1 minute prior to obtaining)] Pulse Ox Oxygen Delivery Method Weight Weight: 250 lb 7.122 oz Body Mass Index (BMI) 35.9 Physical Exam Const alert, oriented x3 and no apparent distress Constitutional Narrative: Obese with nontoxic appearance. General Appearance: cooperative HEENT normocephalic, hearing grossly normal bilaterally and moist oral mucous membranes HEENT Narrative: Patient has Left posterior occiput hematoma with some superficial abrasions. Eyes PERRL, EOMs intact bilaterally and conjunctivae normal Neck no lymphadenopathy, supple and no JVD Resp normal respiratory effort, no retractions, no use of accessory muscles and clearto auscultation bilaterally Cardio regular rate and regular rhythm GI normal to inspection, nondistended, normoactive bowel sounds, soft to palpation,non-tender and non-distended GI Narrative: Obese. Extremity Extremity Narrative: Superficial abrasion of the Right knee which patient states was present prior toher fall today. No rash or edema noted. Skin Skin Narrative: Superficial abrasion of the Right knee which patient states was present prior toher fall today. No rash or edema noted. Neuro oriented x3, CN's II-XII intact bilaterally, moves all extremities and no focal motor deficits Neuro Narrative: Patient has Parkinson's tremor. Sensorium / Orientation: awake, alert, oriented to person, oriented to place andoriented to time Speech: speech normal Psych affect normal Results Medical Records Data Attestation: I reviewed the patient's medical records Lab / Micro Data Attestation: I reviewed the patient's lab results. 06/08/25 18:17 06/08/25 19:25 Labs: Laboratory Results - last 24 hr 06/08/25 18:17: WBC 9.2, RBC 4.67, Hgb 14.4, Hct 41.6, MCV 89.1, MCH 30.8, MCHC 34.6, RDW Std Deviation 42.2, RDW Coeff of Nori 13.2, Plt Count 261, MPV 10.4, Immature Gran % (Auto) 0.800, Neut % (Auto) 51.9, Lymph % (Auto) 36.0, [place] % (Auto) 8.5, Eos % (Auto) 1.9, Baso % (Auto) 0.9, Absolute Neuts (auto) 4.8, Absolute Lymphs (auto) 3.30, Nucleated RBC % 0, Sodium Cancelled, Potassium Cancelled, Chloride Cancelled, Carbon Dioxide Cancelled, Anion Gap Cancelled, BUN Cancelled, Creatinine Cancelled, Estim Creat Clear Calc Cancelled, Est GFR (MDRD) Non-Af Cancelled, BUN/Creatinine Ratio Cancelled, Glucose Cancelled, Calcium Cancelled, Troponin T High Sens Cancelled 06/08/25 19:25: Sodium 139, Potassium 4.0, Chloride 103, Carbon Dioxide 24.5, Anion Gap 12, BUN 22 H, Creatinine 0.85, Estim Creat Clear Calc 87.49, Est GFR (MDRD) Non-Af 88, BUN/Creatinine Ratio 26.0 H, Glucose 224 H, Calcium 9.0, Troponin T High Sens 17 06/08/25 20:41: Urine Color Yellow, Urine Clarity Clear, Urine pH 6.0, Ur Specific [place] 1.020, Urine Protein 15 H, Urine Glucose (UA) 50 H, Urine Ketones 5 H, Urine Occult Blood 10 H, Urine Nitrite Negative, Urine Bilirubin Negative, Urine Urobilinogen 1 H, Ur Leukocyte Esterase Negative Imaging Radiology Impression Brain CT 06/08/25 18:16 IMPRESSION: 1. No acute intracranial abnormality. Small left posterior scalp hematoma. 2. Ethmoid and maxillary sinus disease, correlate for clinical evidence of acute sinusitis. Reading Location: [facility] Cervical Spine CT 06/08/25 18:16 IMPRESSION: No acute osseous abnormality of the cervical spine. Multilevel degenerative changes. Reading Location: [id number] Chest X-Ray 06/08/25 18:43 IMPRESSION: Low lung volumes, without definite evidence of an acute cardiopulmonary abnormality. Reading Location: [facility] Assessment & Plan Assessment/Plan (1) Syncope and collapse: (2) History of Parkinson's disease: (3) Acute sinusitis: QUALIFIERS: Recurrence: not specified as recurrent Sinusitis location: unspecified location Qualified Code(s): J01.90 - Acute sinusitis, unspecified (4) Dehydration: (5) Obesity (BMI 30-39.9): (6) History of dementia: PLAN: Plan 1. Syncope and Collapse with subsequent Left scalp Hematoma and Lethargy in thesetting of known Parkinson's disease - Admit to PCU under observation status. Serialize troponin. Check echocardiogram to evaluate LVEF. Check carotid Doppler to evaluate for stenosis. Continue current Parkinson's regimen as previous. Finally, we will consult PT/OT and Case Management see this patient on rounds in the a.m. for further recommendations with help appreciated in advance. 2. CT without contrast that revealed no acute intracranial abnormality with small Left posterior scalp hematoma in addition to ethmoid and maxillary sinus disease consistent with Acute Sinusitis likely contributing to #1 - Start empiric IV ceftriaxone and then transition to oral antibiotics at time of discharge. Give acetaminophen as needed for [id number] (level 1-5/10) pain or fever. 3. Dehydration evidenced by BUN/creatinine ratio of 26.1 present on admission complicating #1 & #2 - Gently volume resuscitate and recheck renal indices in AMto follow trend. 4. Obesity (class II); with BMI of 35.9 this admission adding to the burden of disease outlined from #1 - #3 - Weight loss was recommended. Check TSH. This complicates his case may hamper recovery. 5. History of Dementia adding to the medical complexity of #1 - #4 - Check TSH,B12, folate, JUAN and UDS to evaluate for potential reversible causes of confusion. 6. OA; with history of Left TKR plus spinal fusion with subsequent chronic backpain on hydrocodone-acetaminophen prn QID - Give oxycodone-acetaminophen prn forsevere (level 6-10/10) pain. 7. Essential hypertension; on propranolol - Maintain current therapy plus with blood pressure of 155/88 mmHg and pulse of 97 bpm. Give hydralazine IV as needed for systolic blood pressure greater than 160 mmHg. 8. DM-2; of unknown control on insulin glargine 60U sq daily, insulin aspart SSI and metformin plus diabetic neuropathy - ADA diet. FSBS q. AC/HS plus SSI. Continue insulin glargine at 40U daily to minimize risk of iatrogenic hypoglycemia. Check hemoglobin A1c to objectively evaluate quality of diabetic control. 9. Hyperlipidemia; pravastatin - Resume statin and check Lipid Profile. 10. Former tobacco abuse - Noted. 11. Paroxysmal atrial fibrillation; not on anticoagulation - Patient currently in NSR. Due to his falls he is considered a poor candidate for anticoagulation. 12. History of RBBB - Noted. 13. Depression; on doxepin - Continue doxepin as previous. 14. BPH; on finasteride and alfuzosin - Current therapy to be maintained as before. 15. DVT prophylaxis - Heparin 5,000U sq BID plus SCD's. Total time: Approximately (but not less than) 85 minutes. Charges/Coding Visit Charges OBSV E&M: 38884 Observ/hosp same date L3 06/09/25 0604 <Electronically signed by Geo Garza DO> Cosigner Signature (if applicable): CC: Dr. Geo Garza DO; Dr. Ja Cooley MD~ Signed [facility] Work Phone: [phone] History and physical note [facility] Medical Records Department [address] [place] [id number] H&P Exam - Hospitalist 06/08/252109 MR#: [id number] Acct: [id number] Name: LUIS ARMANDO GRIFFITH Rep #:[id number] 10 : 1945 79 From: Geo Marin DO PCP: Dr. Ja Cooley MD Status:AD M SANDHYA Location: [place] [address] HPI - General General Date of Admission: 06/08/25 Date of Service: 06/08/25 Chief Complaint: Syncope with Collapse. HPI Narrative LUIS ARMANDO GRIFFITH, is a 79 M with a past medical history of essential hypertension; on propranolol, hyperlipidemia; pravastatin, obesity (class II); with BMI of 35.9 this admission, former tobacco abuse, DM-2; of unknown control on insulin glargine 60U sq daily, insulin aspart SSI and metformin, diabetic neuropathy, paroxysmal atrial fibrillation; not on anticoagulation, history of RBBB, Parkinson's disease; on carbidopa-levodopa QID plus ropinirole BID, history of dementia, depression; on doxepin, BPH; on finasteride and alfuzosin and OA; withhistory of Left TKR plus spinal fusion with subsequentchronic back pain on hydrocodone-acetaminophen prn QID who presents to [facility] ER complaining of syncope with collapse. Mr. Flower reports his symptoms began while he was in his rollator at his extended care facility when he began to feel lightheaded and the next thing he remembers is waking up on the floor. He also admits to associated headache withposterior scalp hematoma with persistent lethargy. He denies associated focal neurologic deficits, paresthesias, neck pain, chest pain, palpitations, heart racing, lower extremity edema, shortness of breath, abdominal pain, nausea, vomiting, diarrhea, constipation, dysuria, hematuria or rash. In the ER he was noted to have a head CT without contrast that revealed no acute intracranial abnormality with small Left posterior scalp hematoma in addition to ethmoid andmaxillary sinus disease consistent with Acute Sinusitis in addition to CT scan of the C-spine whichrevealed no acute osseous abnormality of the cervical spinewith multilevel degenerative changes patricia CXR that revealed low lung volumes without definite evidence of an acute cardiopulmonary abnormality. He was then diagnosed with Syncope and Collapse in the setting of chronic Parkinson's disease suspected to be due at least in part to Acute Sinusitis in addition to Dehydration evidenced by BUN/creatinine ratio of 26.1 present on admission and he was then admitted to the PCU under observation status for ongoing care for stay that is expected to be less than 2 midnights. [facility] Medical History Parkinson's disease Right bundle branch block (RBBB) Obesity Type 2 diabetes mellitus Essential (primary) hypertension Cataract Back problem Arthritis HLD (hyperlipidemia) Paroxysmal atrial fibrillation Home Medications ?Medication ?Instructions ?Recorded ?Last Taken ?Type pravastatin 80 mg tablet 80 mg PO QDAY cholesterol Unknown History fluticasone fur. 200 mcg-umeclid 1 inh inhalation LIVIA Y SOB 04/12/22 Unknown History 62.5 mcg-vilant 25 mcg inhalat.powder (Trelegy Ellipta) pantoprazole 40 mg tablet,delayed 40 mg PO DAILY acid reflux 04/12/22 Unknown History release finasteride 5 mg tablet 5 mg PO DAILY urine flow Unknown History alfuzosin 10 mg tablet,extended 10 mg PO DAILY urinary retention 04/12/23 Unknown History release 24 hr cholecalciferol (vitamin D3) 25 4,000 unit PO DAILY cochran pplement 04/12/23 Unknown History mcg (1,000 unit) capsule insulin aspart U-100 100 unit/mL See Rx Instructions . Route 04/12/23 Unknown History subcutaneous solution (Novolog .COMPLEX diabetes U-100 Insulin aspart) metformin 750 mg tablet,extended 750 mg PO QHS diabete s 04/12/23 Unknown History release 24 hr insulin glargine U-300 conc 300 54 unit subcut DAILY d iabetes 06/27/24 Unknown History unit/mL (3 mL) subcutaneous pen (Toujeo Max U-300 SoloStar) ropinirole 2 mg tablet 2 mg PO TID parkinson #270 t abs 03/20/25 Unknown Rx doxepin 25 mg capsule 25 mg PO QHS nerve pain #90 caps 03/31/25 Unknown Rx albuterol sulfate 90 mcg/actuation 2 inh inhalation Q6 H PRN shortness 06/08/25 Unknown History aerosol inhaler of breath or wheezing aspirin 81 mg tablet,delayed 81 mg PO QHS heart health 06/08/25 Unknown History release (Adult Aspirin Regimen) budesonide 1 mg/2 mL suspension 1 mg inhalation Q6H SO B 06/08/25 Unknown History for nebulization (Pulmicort) carbidopa 25 mg-levodopa 100 mg 2 tab PO 4X/DAY angel sons 06/08/25 Unknown History tablet propranolol 60 mg capsule,24 60 mg PO QHS blood pressu re 06/08/25 Unknown History hr,extended release Allergy/AdvReac Type Severity Reaction Status Date / Time metoclopramide (From Reglan) Allergy Severe HYPER Verified 06/08/25 18:03 Family History Father Leukemia Surgical History History of total left knee replacement (TKR) History of left tennis elbow Hx of spinal fusion History of skin cancer Social History household members: spouse housing: house Smoking Status: Former smoker alcohol intake: never substance use type: does not use ROS ROS Narrative Review of Systems: Constitutional: Patient admits to lethargy but he denies fever or chills. Eyes: Patient denies changes in vision or discharge from eyes. ENT: Patient denies runny nose, sore throat or ear pain. Resp: Patient denies shortness of breath or cough. CV: Patient denies admits to syncopal event with LOC as per HPI. He denies chest pain, palpitations, heart racing or lower extremity edema. GI: Patient denies abdominal pain, nausea, vomiting, diarrhea or constipation. : Patient denies dysuria, hematuria urinary frequency. MSK: Patient denies arthralgias or myalgias. Skin: Patient has Left posterior scalp hematoma as per HPI. He denies rash. Psych: Patient denies symptoms of uncontrolled depression or anxiety. Neuro: Patient admits to headache but he denies paresthesias or focal neurologicdeficits. Allergy: Patient denies lip swelling, tongue swelling or urticaria. Hematology: Patient denies easy bleeding or easy bruisability. Endocrinology: Patient denies polyuria, polydipsia, polyphagia or heat/cold intolerance. 14 point ROS otherwise negative except for positives noted above in HPI. Vital Signs Vital Signs Vital Signs: 06/08/25 18:03 06/08/25 18:06 06/08/25 19:57 Temperature 98.3 F Temperature Source Oral Pulse Rate 95 Pulse Rate [Lying] 99 Pulse Rate [Sitting (for 1 minute prior to obtaining)] 98 Pulse Rate [Standing (for 1 minute prior to obtaining)] 99 Respiratory Rate 24 H Respiratory Effort Normal Respiratory Depth Normal Respiratory Pattern Normal Blood Pressure 163/69 H Blood Pressure [Lying] 151/76 H Blood Pressure [Sitting (for 1 minute prior to obtaining)] 145/79 H Blood Pressure [Standing (for 1 minute prior to obtaining)] 155/88 H Blood Pressure Mean 100 Blood Pressure Mean [Lying] 101 Blood Pressure Mean [Sitting (for 1 minute prior to obtaining)] 101 Blood Pressure Mean [Standing (for 1 minute prior to obtaining)] 110 Pulse Ox 94 Oxygen Delivery Method Room Air Room Air 06/08/25 20:02 Temperature Temperature Source Pulse Rate 97 Pulse Rate [Lying] Pulse Rate [Sitting (for 1 minute prior to obtaining)] Pulse Rate [Standing (for 1 minute prior to obtaining)] Respiratory Rate Respiratory Effort Respiratory Depth Respiratory Pattern Blood Pressure 155/88 H Blood Pressure [Lying] Blood Pressure [Sitting (for 1 minute prior to obtaining)] Blood Pressure [Standing (for 1 minute prior to obtaining)] Blood Pressure Mean 110 Blood Pressure Mean [Lying] Blood Pressure Mean [Sitting (for 1 minute prior to obtaining)] Blood Pressure Mean [Standing (for 1 minute prior to obtaining)] Pulse Ox Oxygen Delivery Method Weight Weight: 250 lb 7.122 oz Body Mass Index (BMI) 35.9 Physical Exam Const alert, oriented x3 and no apparent distress Constitutional Narrative: Obese with nontoxic appearance. General Appearance: cooperative HEENT normocephalic, hearing grossly normal bilaterally and moist oral mucous membranes HEENT Narrative: Patient has Left posterior occiput hematoma with some superficial abrasions. Eyes PERRL, EOMs intact bilaterally and conjunctivae normal Neck no lymphadenopathy, supple and no JVD Resp normal respiratory effort, no retractions, no use of accessory muscles and clearto auscultation bilaterally Cardio regular rate and regular rhythm GI normal to inspection, nondistended, normoactive bowel sounds, soft to palpation,non-tender and non-distended GI Narrative: Obese. Extremity Extremity Narrative: Superficial abrasion of the Right knee which patient states was present prior toher fall today. No rash or edema noted. Skin Skin Narrative: Superficial abrasion of the Right knee which patient states was present prior toher fall today. No rash or edema noted. Neuro oriented x3, CN's II-XII intact bilaterally, moves all extremities and no focal motor deficits Neuro Narrative: Patient has Parkinson's tremor. Sensorium / Orientation: awake, alert, oriented to person, oriented to place andoriented to time Speech: speech normal Psych affect normal Results Medical Records Data Attestation: I reviewed the patient's medical records Lab / Micro Data Attestation: I reviewed the patient's lab results. 06/08/25 18:17 06/08/25 19:25 Labs: Laboratory Results - last 24 hr 06/08/25 18:17: WBC 9.2, RBC 4.67, Hgb 14.4, Hct 41.6, MCV 89.1, MCH 30.8, MCHC 34.6, RDW Std Deviation 42.2, RDW Coeff of Nori 13.2, Plt Count 261, MPV 10.4, Immature Gran % (Auto) 0.800, Neut % (Auto) 51.9, Lymph % (Auto) 36.0, [place] % (Auto) 8.5, Eos % (Auto) 1.9, Baso % (Auto) 0.9, Absolute Neuts(auto) 4.8, Absolute Lymphs (auto) 3.30, Nucleated RBC % 0, Sodium Cancelled, Potassium Cancelled, Chloride Cancelled, Carbon Dioxide Cancelled, Anion Gap Cancelled, BUN Cancelled, Creatinine Cancelled, Estim Creat Clear Calc Cancelled, Est GFR (MDRD) Non-Af Cancelled, BUN/Creatinine Ratio Cancelled, Glucose Cancelled, Calcium Cancelled, Troponin T High Sens Cancelled 06/08/25 19:25: Sodium 139, Potassium 4.0, Chloride 103, Carbon Dioxide 24.5, Anion Gap 12, BUN 22 H, Creatinine 0.85, Estim Creat Clear Calc 87.49, Est GFR (MDRD) Non-Af 88, BUN/Creatinine Ratio 26.0 H, Glucose 224 H, Calcium 9.0, Troponin T High Sens 17 06/08/25 20:41: Urine Color Yellow, Urine Clarity Clear, Urine pH 6.0, Ur Specific [place] 1.020, Urine Protein 15 H, Urine Glucose (UA) 50 H, Urine Ketones 5 H, Urine Occult Blood 10 H, Urine Nitrite Negative, Urine Bilirubin Negative, Urine Urobilinogen 1 H, Ur Leukocyte Esterase Negative Imaging Radiology Impression Brain CT 06/08/25 18:16 IMPRESSION: 1. No acute intracranial abnormality. Small left posterior scalp hematoma. 2. Ethmoid and maxillary sinus disease, correlate for clinical evidence of acute sinusitis. Reading Location: [facility] Cervical Spine CT 06/08/25 18:16 IMPRESSION: No acute osseous abnormality of the cervical spine. Multilevel degenerative changes. Reading Location: [facility] Chest X-Ray 06/08/25 18:43 IMPRESSION: Low lung volumes, without definite evidence of an acute cardiopulmonary abnormality. Reading Location: [facility] Assessment & Plan Assessment/Plan (1) Syncope and collapse: (2) History of Parkinson's disease: (3) Acute sinusitis: QUALIFIERS: Recurrence: not specified as recurrent Sinusitis location: unspecified location Qualified Code(s): J01.90 - Acute sinusitis, unspecified (4) Dehydration: (5) Obesity (BMI 30-39.9): (6) History of dementia: PLAN: Plan 1. Syncope and Collapse with subsequent Left scalp Hematoma and Lethargy in thesetting of known Parkinson's disease - Admit to PCU under observation status. Serialize troponin. Check echocardiogram to evaluate LVEF. Check carotid Doppler to evaluate for stenosis. Continue current Parkinson's regimen as previous. Finally, we will consult PT/OT and Case Management see this patient on rounds in the a.m. for further recommendations with help appreciated in advance. 2. CT without contrast that revealed no acute intracranial abnormality with small Left posterior scalp hematoma in addition to ethmoid and maxillary sinus disease consistent with Acute Sinusitis likely contributing to #1 - Start empiric IV ceftriaxone and then transition to oral antibiotics at timeof discharge. Give acetaminophen as needed for chab-cw-nosvzrdo (level 1-5/10) pain or fever. 3. Dehydration evidenced by BUN/creatinine ratio of 26.1 present on admission complicating #1 &#2 - Gently volume resuscitate and recheck renal indices in AMto follow trend. 4. Obesity (class II); with BMI of 35.9 this admission adding to the burden of disease outlined from #1 - #3 - Weight loss was recommended. Check TSH. This complicates his case may hamper recovery. 5. History of Dementia adding to the medical complexity of #1 - #4 - Check TSH,B12, folate, JUAN andUDS to evaluate for potential reversible causes of confusion. 6. OA; with history of Left TKR plus spinal fusion with subsequent chronic backpain on hydrocodone-acetaminophen prn QID - Give oxycodone-acetaminophen prn forsevere (level 6-10/10) pain. 7. Essential hypertension; on propranolol - Maintain current therapy plus with blood pressure of 155/88 mmHg and pulse of 97 bpm. Give hydralazine IV as needed for systolic blood pressure greater than 160 mmHg. 8. DM-2; of unknown control on insulin glargine 60U sq daily, insulin aspart SSI and metformin plusdiabetic neuropathy - ADA diet. FSBS q. AC/HS plus SSI. Continue insulin glargine at 40U daily to minimize risk of iatrogenic hypoglycemia. Check hemoglobin A1c to objectively evaluate quality of diabetic control. 9. Hyperlipidemia; pravastatin - Resume statin and check Lipid Profile. 10. Former tobacco abuse - Noted. 11. Paroxysmal atrial fibrillation; not on anticoagulation - Patient currently in NSR. Due to his falls he is considered a poor candidate for anticoagulation. 12. History of RBBB - Noted. 13. Depression; on doxepin - Continue doxepin as previous. 14. BPH; on finasteride and alfuzosin - Current therapy to be maintained as before. 15. DVT prophylaxis - Heparin 5,000U sq BID plus SCD's. Total time: Approximately (but not less than) 85 minutes. Charges/Coding Visit Charges OBSV E&M: 92520 Observ/hosp same date L3 06/09/25 0604 Cosigner Signature (if applicable): CC: Dr. Geo Garza DO; Dr. Ja Cooley MD~ Signed [facility]07-21-2025 Discharge summary Author Joe [facility] Note Date/Time June 08, 2025 11:1 6pm [facility] Medical Records Department [address] [place] [address] Emergency Department Summary 06/08/25 MR#: [id number] Acct: [id number] Name: LUIS ARMANDO GRIFFITH Rep #:[id number] : 1945 79 From: Joe Soto DO PCP: Dr. Ja Cooley MD Status:AD [facility] Location: [address] History of Present Illness Chief Complaint: Fall Detail of Chief Complaint: Syncope with head injury Informant: patient Narrative Narrative: Patient presents from extended-care facility after a syncopal episode. Patient states that he had gotten lightheaded so he sat on his rollator and the next thing he remembers is waking up on the floor. Does complain of headache. Denies neck pain. Denies chest pain or shortness of breath. He has history of Parkinson's. Denies any pain in his abdomen or legs. Patient not anticoagulated. [facility] Medical History Parkinson's disease Right bundle branch [...] metoclopramide (From Reglan) Allergy Severe HYPER Verified 06/08/25 18:03 Family History Father Leukemia Surgical History History [...] dysuria, hematuria or urinary frequency Musculoskeletal Musculoskeletal: Denies arthralgias, back pain, myalgias or neck pain Integumentary Denies abscess, Abrasions or rash Neurologic Neurologic: Reports headache(s) and other Details: Syncope ; Denies weakness Psychiatric Psychiatric: Denies anxiety, depression or suicidal thoughts Endocrine Endocrinology: Denies polydipsia, polyphagia or polyuria Hematologic/Lymphatic Hematologic/Lymphatic: Denies easy bleeding, easy bruising or lymphadenopathy Allergic/Immunologic Allergic/Immunologic ED: Denies mouth swelling, tongue swelling or urticaria EXAM Physical Exam Const Vital Signs: 06/08/25 18:03 06/08/25 18:06 06/08/25 19:57 Temperature 98.3 F Temperature Source Oral Pulse Rate 95 Pulse Rate [Lying] 99 Pulse Rate [Sitting (for 1 minute prior to obtaining)] 98 Pulse Rate [Standing (for 1 minute prior to obtaining)] 99 Respiratory Rate 24 H Respiratory Effort Normal Respiratory Depth Normal Respiratory Pattern Normal Blood Pressure 163/69 H Blood Pressure [Lying] 151/76 H Blood Pressure [Sitting (for 1 minute prior to obtaining)] 145/79 H Blood Pressure [Standing (for 1 minute prior to obtaining)] 155/88 H Blood Pressure Mean 100 Blood Pressure Mean [Lying] 101 Blood Pressure Mean [Sitting (for 1 minute prior to obtaining)] 101 Blood Pressure Mean [Standing (for 1 minute prior to obtaining)] 110 Pulse Ox 94 Oxygen Delivery Method Room Air Room Air 06/08/25 20:02 Temperature Temperature Source Pulse Rate 97 Pulse Rate [Lying] Pulse Rate [Sitting (for 1 minute prior to obtaining)] Pulse Rate [Standing (for 1 minute prior to obtaining)] Respiratory Rate Respiratory Effort Respiratory Depth Respiratory Pattern Blood Pressure 155/88 H Blood Pressure [Lying] Blood Pressure [Sitting (for 1 minute prior to obtaining)] Blood Pressure [Standing (for 1 minute prior to obtaining)] Blood Pressure Mean 110 Blood Pressure Mean [Lying] Blood Pressure Mean [Sitting (for 1 minute prior to obtaining)] Blood Pressure Mean [Standing (for 1 minute prior to obtaining)] Pulse Ox Oxygen Delivery Method Positive well nourished and well developed General Appearance ED: well developed and NAD HEENT Reports TM's clear and moist mucous membranes HEENT Narrative: Patient with some superficial abrasions to the posterior occiput without significant hematoma. No bony step-offs or depressions. No significant lacerations. normocephalic and atraumatic; Negative for trauma or tenderness Tympanic Membrane ED: Yes TM's clear Eyes PERRL and EOMs intact bilaterally General Eye ED: Negative for pale conjunctiva or scleral icterus Neck no lymphadenopathy, supple and no JVD Neck Narrative: Mild diffuse tenderness on exam. No bony step-offs or depressions. Good range of motion. General: Negative for tenderness Chest Wall inspection of chest normal and palpation of chest normal Chest: Negative for tenderness Resp normal respiratory effort and clear to auscultation bilaterally Effort and Inspection: Negative for respiratory distress or pain with movement Auscultation: Negative for rhonchi, wheezes or diminished lung sounds Cardio regular rate, regular rhythm, S1 normal heart sound, S2 normal heart sound and no murmurs Peripheral Pulses: pulses 2+ throughout GI normal to inspection, nondistended, normoactive bowel sounds, soft to palpation,non-tender, non-distended and no masses Back/Spine no CVA tenderness and no thoracic nor lumbar tenderness Extremity Extremity Narrative: Superficial abrasion to the right knee which she states is prior to the fall today. No bony tenderness on exam. Pelvis stable. Normal range of motion in both hips normal range of motion both knees. General Extremety ED: Negative for edema General Extremity: Negative for edema Neuro oriented x3, CN's II-XII intact bilaterally, no sensory deficits noted and gait normal Sensorium / Orientation: awake, alert, oriented to person, oriented to place andoriented to time Motor Exam: strength 5/5 throughout and strength abnormal Psych mental status grossly normal Skin no rashes or lesions noted and no wounds MDM MDM MDM Narrative Medical decision making narrative: Patient presents to the emergency department with plaint of a syncopal episode. He is not sure exactly what happened. He remembers feeling dizzy and then he sat on his rollator and then remembers waking up on the floor. Patient had assisted living facility. Complains of headache. Denies chest pain or trouble breathing. Denies palpitations. IV line established. EKG obtained showed a sinus rhythm with a rate of 88 bpm with right bundle branch block. CBC with differential shows white count of 9.2 with hemoglobin 14.4 and platelet count 251. Chemistries unremarkable. Troponin was normal at 17. CT scan of the brain without contrast showed no acute process. CT C-spine showed no fractures. Urinalysis ordered and pending. This point etiology of syncopal episode unclear. Orthostatic vital signs were negative. Will discuss with hospitalist to evaluate for admission for an observation. Lab Data Attestation: I reviewed the patient's lab results. Labs: Laboratory Results - last 24 hr 06/08/25 06/08/25 18:17 19:25 WBC 9.2 RBC 4.67 Hgb 14.4 Hct 41.6 MCV 89.1 MCH 30.8 MCHC 34.6 RDW Std Deviation 42.2 RDW Coeff of Nori 13.2 Plt Count 261 MPV 10.4 Immature Gran % (Auto) 0.800 Neut % (Auto) 51.9 Lymph % (Auto) 36.0 [place] % (Auto) 8.5 Eos % (Auto) 1.9 Baso % (Auto) 0.9 Absolute Neuts (auto) 4.8 Absolute Lymphs (auto) 3.30 Nucleated RBC % 0 Sodium Cancelled 139 Potassium Cancelled 4.0 Chloride Cancelled 103 Carbon Dioxide Cancelled 24.5 Anion Gap Cancelled 12 BUN Cancelled 22 H Creatinine Cancelled 0.85 Estim Creat Clear Calc Cancelled 87.49 Est GFR (MDRD) Non-Af Cancelled 88 BUN/Creatinine Ratio Cancelled 26.0 H Glucose Cancelled 224 H Calcium Cancelled 9.0 Troponin T High Sens Cancelled 17 Radiography Diagnostic Testing: Clinical Impression(s) from Imaging Studies Brain CT 06/08/25 18:16 IMPRESSION: 1. No acute intracranial abnormality. Small left posterior scalp hematoma. 2. Ethmoid and maxillary sinus disease, correlate for clinical evidence of acute sinusitis. Reading Location: [id number] Cervical Spine CT 06/08/25 18:16 IMPRESSION: No acute osseous abnormality of the cervical spine. Multilevel degenerative changes. Reading Location: [id number] Chest X-Ray 06/08/25 18:43 IMPRESSION: Low lung volumes, without definite evidence of an acute cardiopulmonary abnormality. Reading Location: [facility] 1 view chest x-ray obtained interpreted by myself is no evidence of infiltrate or pneumothorax or acute disease process. Radiology in agreement. EKG Initial EKG: Attestation: I personally reviewed and interpreted this EKG as follows: Comments: Sinus rhythm with rate of 88 bpm with right bundle branch block Discharge Plan Triage Chief Complaint: Fall ED Provider: Joe Soto Dx/Rx/DC Orders Clinical Impression: Syncope, Closed head injury, History of Parkinson's disease, History of dementia Prescriptions: No Action pravastatin 80 mg tablet [...] Days Qty: 15 0RF Primary Care Provider: Ja Cooley Referrals: Ja Cooley MD [Primary Care Provider] - Print Language: Mauritian Disposition Disposition: Acute Care Hospital [facility] What to do if you have Problems For any increased pain, shortness of breath, bleeding, nausea or vomiting, chestpain, or any unexpected problems, contact your Primary Care Provider. Call [facility] ([phone]) or report to the closest Emergency Room. Call 911 if necessary. 06/08/25 5646 <Electronically signed by Joe Soto DO> Cosigner Signature (if applicable): CC: Dr. Ja Cooley MD ~ Signed [facility] Work Phone: [phone] 913-850207-20-2025 Discharge summary [facility] Medical Records Department [address] [place] [address] Emergency Department Summary 06/08/25 MR#: [id number] Acct: [id number] Name: LUIS ARMANDO GRIFFITH Rep #:[id number] : 1945 79 From: Joe Soto DO PCP: Dr. Ja Cooley MD Status:AD Matthew [facility] Location: [place] [address] HPI History of Present Illness Chief Complaint: Fall Detail of Chief Complaint: Syncope with head injury Informant: patient Narrative Narrative: Patient presents from [facility] after a syncopal episode. Patient states that he had gotten lightheaded so he sat on his rollator and the next thing he remembers is waking up on the floor. Does complain of headache. Denies neck pain. Denies chest pain or shortness of breath. He has history of Parkinson's. Denies any pain in his abdomen or legs. Patient not anticoagulated. [facility] Medical History Parkinson's disease Right bundle branch [...] metoclopramide (From Reglan) Allergy Severe HYPER Verified 06/08/25 18:03 Family History Father Leukemia Surgical History History [...] dysuria, hematuria or urinary frequency Musculoskeletal Musculoskeletal: Denies arthralgias, back pain, myalgias or neck pain Integumentary Denies abscess, Abrasions or rash Neurologic Neurologic: Reports headache(s) and other Details: Syncope ; Denies weakness Psychiatric Psychiatric: Denies anxiety, depression or suicidal thoughts Endocrine Endocrinology: Denies polydipsia, polyphagia or polyuria Hematologic/Lymphatic Hematologic/Lymphatic: Denies easy bleeding, easy bruising or lymphadenopathy Allergic/Immunologic Allergic/Immunologic ED: Denies mouth swelling, tongue swelling or urticaria EXAM Physical Exam Const Vital Signs: 06/08/25 18:03 06/08/25 18:06 06/08/25 19:57 Temperature 98.3 F Temperature Source Oral Pulse Rate 95 Pulse Rate [Lying] 99 Pulse Rate [Sitting (for 1 minute prior to obtaining)] 98 Pulse Rate [Standing (for 1 minute prior to obtaining)] 99 Respiratory Rate 24 H Respiratory Effort Normal Respiratory Depth Normal Respiratory Pattern Normal Blood Pressure 163/69 H Blood Pressure [Lying] 151/76 H Blood Pressure [Sitting (for 1 minute prior to obtaining)] 145/79 H Blood Pressure [Standing (for 1 minute prior to obtaining)] 155/88 H Blood Pressure Mean 100 Blood Pressure Mean [Lying] 101 Blood Pressure Mean [Sitting (for 1 minute prior to obtaining)] 101 Blood Pressure Mean [Standing (for 1 minute prior to obtaining)] 110 Pulse Ox 94 Oxygen Delivery Method Room Air Room Air 06/08/25 20:02 Temperature Temperature Source Pulse Rate 97 Pulse Rate [Lying] Pulse Rate [Sitting (for 1 minute prior to obtaining)] Pulse Rate [Standing (for 1 minute prior to obtaining)] Respiratory Rate Respiratory Effort Respiratory Depth Respiratory Pattern Blood Pressure 155/88 H Blood Pressure [Lying] Blood Pressure [Sitting (for 1 minute prior to obtaining)] Blood Pressure [Standing (for 1 minute prior to obtaining)] Blood Pressure Mean 110 Blood Pressure Mean [Lying] Blood Pressure Mean [Sitting (for 1 minute prior to obtaining)] Blood Pressure Mean [Standing (for 1 minute prior to obtaining)] Pulse Ox Oxygen Delivery Method Positive well nourished and well developed General Appearance ED: well developed and NAD HEENT Reports TM's clear and moist mucous membranes HEENT Narrative: Patient with some superficial abrasions to the posterior occiput without significant hematoma. No bony step-offs or depressions. No significant lacerations. normocephalic and atraumatic; Negative for trauma or tenderness Tympanic Membrane ED: Yes TM's clear Eyes PERRL and EOMs intact bilaterally General Eye ED: Negative for pale conjunctiva or scleral icterus Neck no lymphadenopathy, supple and no JVD Neck Narrative: Mild diffuse tenderness on exam. No bony step-offs or depressions. Good range of motion. General: Negative for tenderness Chest Wall inspection of chest normal and palpation of chest normal Chest: Negative for tenderness Resp normal respiratory effort and clear to auscultation bilaterally Effort and Inspection: Negative for respiratory distress or pain with movement Auscultation: Negative for rhonchi, wheezes or diminished lung sounds Cardio regular rate, regular rhythm, S1 normal heart sound, S2 normal heart sound and no murmurs Peripheral Pulses: pulses 2+ throughout GI normal to inspection, nondistended, normoactive bowel sounds, soft to palpation,non-tender, non-distended and no masses Back/Spine no CVA tenderness and no thoracic nor lumbar tenderness Extremity Extremity Narrative: Superficial abrasion to the right knee which she states is prior to the fall today. No bony tenderness on exam. Pelvis stable. Normal range of motion in both hips normal range of motion both knees. General Extremety ED: Negative for edema General Extremity: Negative for edema Neuro oriented x3, CN's II-XII intact bilaterally, no sensory deficits noted and gait normal Sensorium / Orientation: awake, alert, oriented to person, oriented to place andoriented to time Motor Exam: strength 5/5 throughout and strength abnormal Psych mental status grossly normal Skin no rashes or lesions noted and no wounds MDM MDM MDM Narrative Medical decision making narrative: Patient presents to the emergency department with plaint of a syncopal episode. He is not sure exactly what happened. He remembers feeling dizzy and then he sat on his rollator and then remembers waking up on the floor. Patient had assisted living facility. Complains of headache. Denies chest pain or trouble breathing. Denies palpitations. IV line established. EKG obtained showed a sinus rhythm wi th a rate of 88 bpm with right bundle branch block. CBC with differential shows white count of 9.2 with hemoglobin 14.4 and platelet count 251. Chemistries unremarkable. Troponin was normal at 17. CTscan of the brain without contrast showed no acute process. CT C-spine showed no fractures. Urinalysis ordered and pending. This point etiology of syncopal episode unclear. Orthostatic vital signs were negative. Will discuss with hospitalist to evaluate for admission for an observation. Lab Data Attestation: I reviewed the patient's lab results. Labs: Laboratory Results - last 24 hr 06/08/25 06/08/25 18:17 19:25 WBC 9.2 RBC 4.67 Hgb 14.4 Hct 41.6 MCV 89.1 MCH 30.8 MCHC 34.6 RDW Std Deviation 42.2 RDW Coeff of Nori 13.2 Plt Count 261 MPV 10.4 Immature Gran % (Auto) 0.800 Neut % (Auto) 51.9 Lymph % (Auto) 36.0 [place] % (Auto) 8.5 Eos % (Auto) 1.9 Baso % (Auto) 0.9 Absolute Neuts (auto) 4.8 Absolute Lymphs (auto) 3.30 Nucleated RBC % 0 Sodium Cancelled 139 Potassium Cancelled 4.0 Chloride Cancelled 103 Carbon Dioxide Cancelled 24.5 Anion Gap Cancelled 12 BUN Cancelled 22 H Creatinine Cancelled 0.85 Estim Creat Clear Calc Cancelled 87.49 Est GFR (MDRD) Non-Af Cancelled 88 BUN/Creatinine Ratio Cancelled 26.0 H Glucose Cancelled 224 H Calcium Cancelled 9.0 Troponin T High Sens Cancelled 17 Radiography Diagnostic Testing: Clinical Impression(s) from Imaging Studies Brain CT 06/08/25 18:16 IMPRESSION: 1. No acute intracranial abnormality. Small left posterior scalp hematoma. 2. Ethmoid and maxillary sinus disease, correlate for clinical evidence of acute sinusitis. Reading Location: [id number] Cervical Spine CT 06/08/25 18:16 IMPRESSION: No acute osseous abnormality of the cervical spine. Multilevel degenerative changes. Reading Location: [facility] Chest X-Ray 06/08/25 18:43 IMPRESSION: Low lung volumes, without definite evidence of an acute cardiopulmonary abnormality. Reading Location: [id number] 1 view chest x-ray obtained interpreted by myself is no evidence of infiltrate or pneumothorax or acute disease process. Radiology in agreement. EKG Initial EKG: Attestation: I personally reviewed and interpreted this EKG as follows: Comments: Sinus rhythm with rate of 88 bpm with right bundle branch block Discharge Plan Triage Chief Complaint: Fall ED Provider: Joe Soto Dx/Rx/DC Orders Clinical Impression: Syncope, Closed head injury, History of Parkinson's disease, History of dementia Prescriptions: No Action pravastatin 80 mg tablet [...] Days Qty: 15 0RF Primary Care Provider: Ja Cooley Referrals: Ja Cooley MD [Primary Care Provider] - Print Language: Mauritian Disposition Disposition: Acute Care Hospital [facility] What to do if you have Problems For any increased pain, shortness of breath, bleeding, nausea or vomiting, chestpain, or any unexpected problems, contact your Primary Care Provider. Call [facility] ([phone]) or report tothe closest Emergency Room. Call 911 if necessary. 06/08/25 8767 Cosigner Signature (if applicable): CC: Dr. Ja Cooley MD ~ Signed [facility]07-20-2025 Radiology Diagnostic study note [facility] Imaging Services [address] [place], [place] [id number] Spine Cervical without Contras MR#: [id number] Acct: [id number] Name: LUIS ARMANDO GRIFFITH Rep #: [id number] : 1945 M 79 From: Craolyn Medina MD PCP: Dr. Ja Cooley MD Status: RE G ER Study:Spine Cervical without Contras Date of Exam: 06/08/25 Exam# [id number] Ordering Dr: Darien Soto DO PROCEDURE: SPINE CERVICAL WITHOUT CONTRAS 06/08/2025 REASON FOR EXAM: FALL TECHNIQUE: SPINE CERVICAL WITHOUT CONTRAS Coronal and Sagittal reconstruction series wereprovided. One or more dose reduction techniques were used (e.g., Automated exposure control, adjustment of the mA and/or kV according to patient size, use of iterative reconstruction technique. RADIATION DOSE SUMMARY: CTDlvol: 20 mGy DLP: 510 mGycm COMPARISON: Cervical spine CT 04/09/2025 FINDINGS: Cervical vertebral body heights are maintained. There is straightening of the normal cervical lordosis which may be related to pain, positioning, or spasm. No displaced fracture. Degenerative calcificationsurrounding the odontoid process. Multilevel disc height loss with uncovertebral and facet arthropathy. Prevertebral soft tissues are unremarkable. Lung apices are clear. CT/Spine Cervical without Contras IMPRESSION: No acute osseous abnormality of the cervical spine. Multilevel degenerative changes. Reading Location: [id number] CC: Dr. Ja Cooley MD; Dr. Joe Soto DO ~ Communications Department Chair: Signed [facility]07-20-2025 Radiology Diagnostic study note [facility] Imaging Services [address] [place] [address] Brain/Head without Contrast MR#: [id number] Acct: [id number] Name: LUIS ARMANDO GRIFFITH Rep #: [id number] : 1945 M 79 From: Carolyn Medina MD PCP: Dr. Ja Cooley MD Status: RE ER Study:Brain/Head without Contrast Date of Exa m: 06/08/25 Exam# [id number] Ordering Dr: Darien Soto DO PROCEDURE: BRAIN/HEAD WITHOUT CONTRAST 06/08/2025 REASON FOR EXAM: SYNCOPE,FALL, HEAD INJURY TECHNIQUE: BRAIN/HEAD WITHOUT CONTRAST Coronal and Sagittal reconstruction series were provided. One or more dose reduction techniques were used (e.g., Automated exposure control, adjustment of the mA and/or kV according to patient size, use of iterative reconstruction technique. RADIATION DOSE SUMMARY: CTDlvol: 45 mGy DLP: 813 mGycm COMPARISON: CT head 04/09/2020 FINDINGS: Brain: No acute intracranial hemorrhage, mass effect, or midline shift. Low density in the periventricular white matter suggests mild chronic small vessel ischemic changes. CSF Spaces: Sinuses/Mastoids: Scattered opacification of the ethmoid air cells. Aerosolizedsecretions with air-fluid levels in the maxillary sinuses. Bones: No displaced calvarial fracture. Small left posterior scalp hematoma. Status post bilateral cataract extraction. Atherosclerotic calcification of theintracranial arteries. CT/Brain/Head without Contrast IMPRESSION: 1. No acute intracranial abnormality. Small left posterior scalp hematoma. 2. Ethmoid and maxillary sinus disease, correlate for clinical evidence of acute sinusitis. Reading Location: [facility] CC: Dr. Ja Cooley MD; Dr. Joe Soto DO ~ Communications Department Chair: Signed [facility]07-20-2025 Radiology Diagnostic study note [facility] Imaging Services [address], [place] [address] Chest 1 View (Portable) MR#: [id number] Acct: [id number] Name: LUIS ARMANDO GRIFFITH Rep #: [id number] : 1945 M 79 From: Carolyn Medina MD PCP: Dr. Ja Cooley MD Status: DARIEN Teixeira Study:Chest 1 View (Portable) Date of Exam: 06/08/25 Exam# [id number] Ordering Dr: Darien Soto DO PROCEDURE: CHEST 1 VIEW (PORTABLE) 06/08/2025 REASON FOR EXAM: SYNCOPE TECHNIQUE: Frontal view of the chest. COMPARISON: Chest radiograph on 01/21/2025 FINDINGS: Hardware: None Heart: Cardiac and mediastinal contours are stable. Lungs: Lung volumes are slightly low. No focal consolidation or significant pleural effusion. Flattening of the hemidiaphragms. Bones: Degenerative changes are identified within the thoracic spine. RAD/Chest 1 View (Portable) IMPRESSION: Low lung volumes, without definite evidence of an acute cardiopulmonary abnormality. Reading Location: [facility] CC: Dr. Ja Cooley MD; Dr. Joe Soto, DO ~ Communications Department Chair: Signed [facility]06-22-2025 Discharge summary [facility] Medical Records Department [address] [place] [address] Emergency Department Summary 05/11/25 MR#: [id number] Acct: [id number] Name: LUIS ARMANDO GRIFFITH Rep #:[id number] : 1945 79 From: Dano Minor MD PCP: Dr. Ja Cooley MD Status:RE G ER Location: ED [...] diabetes on insulin. Instructions did not accompany him.He is on insulin aspartate with complex instruction and insulin glargine. He does not know the dosage. He presently is alert oriented. His blood sugar is 97. Prior similar symptoms: Yes (3 weeks ago) Recent Illness/Hospitalization: No PFSH [facility] Medical History Parkinson's disease Right bundle branch [...] Days Qty: 15 0RF Primary Care Provider: Ja Cooley Referrals: Ja Cooley MD [Primary Care Provider] - As Needed Print Language: Mauritian Disposition Disposition: Home, Self Care What to do if you have Problems For any increased pain, shortness of breath, bleeding, nausea or vomiting, chestpain, or any unexpected problems, contact your Primary Care Provider. Call [facility] ([phone]) or report tothe closest Emergency Room. Call 911 if necessary. 05/11/25 5129 Cosigner Signature (if applicable): CC: Dr. Ja Cooley MD ~ Signed [facility]06-22-2025 Discharge summary Author Dano Minor [facility] Note Date/Time May 11, 2025 6:49 pm [facility] Medical Records Department [address] [place] [address] Emergency Department Summary 05/11/25 MR#: [id number] Acct: [id number] Name: LUIS ARMANDO GRIFFITH Rep #:[id number] : 1945 79 From: Dano Minor MD PCP: Dr. Ja Cooley MD Status:RE G ER Location: ED [...] Days Qty: 15 0RF Primary Care Provider: Ja Cooley Referrals: Ja Cooley MD [Primary Care Provider] - As Needed Print Language: Mauritian Disposition Disposition: Home, Self Care What to do if you have Problems For any increased pain, shortness of breath, bleeding, nausea or vomiting, chestpain, or any unexpected problems, contact your Primary Care Provider. Call [facility] ([phone]) or report to the closest Emergency Room. Call 911 if necessary. 05/11/25 6962 <Electronically signed by Dano Minor MD> Cosigner Signature (if applicable): CC: Dr. Ja Cooley MD ~ Signed [facility] Work Phone: 1(717) 560-279606-20-2025 Procedure note [facility] Speech Pathology [address] [place] [address] Modified Barium Swallow Study MR#: [id number] Acct: [id number] Name: LUIS ARMANDO GRIFFITH Rep #:[id number] : 1945 79 From: Heather Braun, [facility]-COMPUTER SYSTEMS ANALYST Modified Barium Swallow Patient Information Study Date: 05/09/25 Study Time: 13:05 Direct Billable Minutes: 120 Total Minutes procedure & reportin Diagnosis: Dysphagia R13.10 Referring Physician: Vick Santo Reason for Referral: The patient presents for repeat MBSS recommended by his OP COMPUTER SYSTEMS ANALYST. Patient and wifereport coughing w/ food and [...] cup: Result: 2= enter airway/above vocal folds/ejected [place] Thick Liquid via large single sip: cup: [...] sizes taken during MBSS were large/sequential despite COMPUTER SYSTEMS ANALYST cues for small sip. Decreased bolus size is recommended to decrease aspiration risk. COMPUTER SYSTEMS ANALYST provided information re: bolus control cup. The [...] Supervision: Assist as needed ( informed the COMPUTER SYSTEMS ANALYST that supervision at each meal is not possible,COMPUTER SYSTEMS ANALYST recommends supervision as much as able to [...] further education on strategies & risks. Comment: COMPUTER SYSTEMS ANALYST provided extensive education w/ pt and in results and recommendations of MBSS via review of some images, verbal discussion, and handouts (Easy to Chewdiet texture information/testing, MBSS Recommendations, and [place]ale Bolus Control Cup information). Education well received. Pt would benefit from continued training in safe swallowing precautions. Status Active ST Patient: Active Contact Information [facility] Speech Therapy:: Heather Titus M.A. CCC-COMPUTER SYSTEMS ANALYST? Speech-Language Pathologist?? [facility] [address] [place] [address]? [email or web address]?? [phone] 05/09/25 1600 ANGIE Layton-COMPUTER SYSTEMS ANALYST> Date/Time Heather Titus M.A. CCC-COMPUTER SYSTEMS ANALYST Co-Signature Required for all Medicare patients Date/Time Co-Signature CC: ~ [facility]05-25-2025 Hospital Discharge instructions* Discharge Instructions* Chetan Powell MD - 04/13/2025 9:41 PM EDT You had 10 stitches placed. Please present to an urgent care, your primary care physician, or back to the emergency department in 5-7 days to have your stitches removed. * Attachments The following attachments cannot be sent through Care Everywhere. * Nose Fracture (Mauritian) documented in this [facility]05-25-2025 Emergency department Note* Chetan Powell MD - 04/13/2025 8:38 PM EDTAssociated Order(s): Laceration Repair Images from the original note were not included. EMERGENCY DEPARTMENT ENCOUNTER Pt Name: Luis Armando Griffith Birthdate 1945 Date of evaluation: 04/13/2025 ED Provider: Roddy Powell MD CHIEF COMPLAINT Chief Complaint Patient presents with Laceration HISTORY OF PRESENT ILLNESS (Location/Symptom, Timing/Onset, Context/Setting, Quality, Duration, Modifying Factors, Severity) Note limiting factors. I wore appropriate PPE for the entirety of this encounter. HPI Luis Armando Griffith is a 79 y.o. male who [...] CT maxillofacial [facility], for Questa CT demonstrating bilateral nasal bone fractures. The [...] initial encounter Medications lidocaine-EPINEPHrine (Xylocaine W/EPI) 1 %-1:693889 injection 10 mL (has no administration in [...] Consent obtained: Verbal Consent given by: Patient [place] protocol: Imaging studies available: yes Patient identity [...] Discharge 04/13/2025 09:39:45 PM PATIENT REFERRED TO: [facility] [address] [facility] [address] [facility] [address] Schedule an appointment as soon [...] scheduled for the surgery on 04/17/2018 at [facility] COPD (chronic obstructive pulmonary disease) ([facility]) Diabetes mellitus type 2, controlled ([facility]) ([facility]) [place] (hard of hearing) HAS HEARING AID BOTH EARS , BUT DID NOT WEAR THEM Hyperlipidemia Hypertension MELISSA on CPAP [2] Past Surgical History: Procedure Laterality Date COLONOSCOPY COLONOSCOPY ELBOW SURGERY Left 1990 Lateral epicondylitis surgery EYE SURGERY bilat cataracts and implants JOINT REPLACEMENT Bilateral TKA L 2005, TKA R 2011 SKIN BIOPSY SPINAL FUSION 2000 L2,3,4; AT [facility] WRIST ARTHROSCOPY (HISTORICAL) Left 04/17/2018 [3] [...] forehead above left eye documented in this [facility]05-25-2025 Emergency department Triage note* Cielo Valverde RN - 04/13/2025 8:38 PM EDT Pt presents to ED via EMS from restaurant for c/o left frontal head lac after losing footing and falling onto face on the ground. Pt has hx of parkinson's. Abrasion noted to forehead, small lac notedto bridge of nose as well as a large lac to forehead above [id number] Emergency department Note* Chetan Powell MD - 04/13/2025 8:38 PM EDTAssociated Order(s): Laceration Repair Images from the original note were not included. EMERGENCY DEPARTMENT ENCOUNTER Pt Name: Luis Armando Griffith Birthdate 1945 Date of evaluation: 04/13/2025 ED Provider: Roddy Powell MD CHIEF COMPLAINT Chief Complaint Patient presents with Laceration HISTORY OF PRESENT ILLNESS (Location/Symptom, Timing/Onset, Context/Setting, Quality, Duration, Modifying Factors, Severity) Note limiting factors. I wore appropriate PPE for the entirety of this encounter. HPI Luis Armando Griffith is a 79 y.o. male who [...] DEPARTMENT COURSE and DIFFERENTIAL DIAGNOSIS/MDM: Vitals: Vitals: 04/13/250 BP: 132/58 Pulse: 77 Resp: 18 Temp: [...] records from: [facility] demonstrating 1 prescription, for Questa CT demonstrating bilateral nasal bone fractures. The [...] initial encounter Medications lidocaine-EPINEPHrine (Xylocaine W/EPI) 1 %-1:494723 injection 10 mL (has no administration in [...] Consent obtained: Verbal Consent given by: Patient [place] protocol: Imaging studies available: yes Patient identity [...] Discharge 04/13/2025 09:39:45 PM PATIENT REFERRED TO: [facility] [address] [place] [address] [facility] [address] Schedule an appointment as soon [...] scheduled for the surgery on 04/17/2018 at [facility] COPD (chronic obstructive pulmonary disease) ([facility]) Diabetes mellitus type 2, controlled ([facility]) ([facility]) [place] (hard of hearing) HAS HEARING AID BOTH EARS , BUT DID NOT WEAR THEM Hyperlipidemia Hypertension MELISSA on CPAP [2] Past Surgical History: Procedure Laterality Date COLONOSCOPY COLONOSCOPY ELBOW SURGERY Left 1990 Lateral epicondylitis surgery EYE SURGERY bilat cataracts and implants JOINT REPLACEMENT Bilateral TKA L 2005, TKA R 2011 SKIN BIOPSY SPINAL FUSION 2000 L2,3,4; AT [facility] WRIST ARTHROSCOPY (HISTORICAL) Left 04/17/2018 [3] [...] Drug use: No Chetan Powell MD 04/13/252221 Lashell [id number] Discharge summary [facility] Medical Records Department [address] [place] [address] Emergency Department Summary 04/09/25 MR#: [id number] Acct: [id number] Name: LUIS ARMANDO GRIFFITH Rep #:[id number] : 1945 79 From: Surya Dumont MD PCP: Dr. Ja Cooley MD Status:RE G ER Location: ED [...] take blood thinners. Tetanus Immunization: <5 years [facility] Medical History Parkinson's disease Right bundle branch [...] change from the prior exam. Reading Location: [facility] Cervical Spine CT 04/09/25 11:34 IMPRESSION: 1. No acute fracture. 2. Degenerative changes of the cervical spine as described. Reading Location: [facility] Discharge Plan Triage Chief Complaint: Head Injury ED Provider: Surya Dumont Dx/Rx/DC Orders Clinical Impression: Fall, Laceration of scalp Instructions: ED Head Injury (Adult), ED Laceration Scalp Stitches or [place] Prescriptions: No Action pravastatin 80 mg tablet [...] Days Qty: 15 0RF Primary Care Provider: aJ Cooley Referrals: Ja Cooley MD [Primary Care Provider] - 10 Day for suture removal Activity Restrictions/Additional Instructions: Have brandi removed by your primary care provider in 7 to 10 days. There were a total of 5 staplesinserted. Return to the emergency department with fever, drainage of pus from wound, new or worsening symptoms. Print Language: Mauritian Disposition Disposition: Home, Self Care What to do if you have Problems For any increased pain, shortness of breath, bleeding, nausea or vomiting, chestpain, or any unexpected problems, contact your Primary Care Provider. Call [facility] ([phone]) or report tothe closest Emergency Room. Call 911 if necessary. 04/09/25 1255 Cosigner Signature (if applicable): CC: Dr. Ja Cooley MD ~ Signed [facility]05-21-2025 Radiology Diagnostic study note [facility] Imaging Services [address], [place] [address] Spine Cervical without Contras MR#: [id number] Acct: [id number] Name: LUIS ARMANDO GRIFFITH Rep #: [id number] : 1945 M 79 From: Krsity Corey MD PCP: Dr. Ja Cooley MD Status: RE [facility] Study:Spine Cervical without Contras Date of Exam: 04/09/25 Exam# [id number] Ordering Dr: Surya Dumont MD EXAM: CT [...] the cervical spine as described. Reading Location: [facility] CC: Dr. Surya Dumont MD; Dr. Ja Cooley MD ~ Communications Department Chair: Signed [facility]05-21-2025 Radiology Diagnostic study note [facility] Imaging Services [address] [place] [address] Brain/Head without Contrast MR#: [id number] Acct: [id number] Name: LUIS ARMANDO GRIFFITH Rep #: [id number] : 1945 M 79 From: Kristy Corey MD PCP: Dr. Ja Cooley MD Status: RE G ER Study:Brain/Head without Contrast Date of Exa m: 04/09/25 Exam# [id number] Ordering Dr: Surya Dumont MD EXAM: CT [...] change from the prior exam. Reading Location: [facility] CC: Dr. Surya Dumont MD; Dr. Ja Cooley MD ~ Communications Department Chair: Signed [facility]05-21-2025 Hospital Discharge instructions Additional Instructions Have brandi removed by your primary care provider in 7 to 10 days. There were a total of 5 brandi inserted. Return to the emergency department with fever, drainage of pus from wound, new or worsening symptoms.[facility] Work Phone: 1(605) 833-714805-01-2025 Evaluation note* Diagnosis Onset Date Resolution Status Admit Date Dysphagia acute March 20, 2025 3:22pm Abnormality of gait and mobility chr onic March 20, 2025 3:22pm Dementia chronic March 20, 2025 3:22pm Parkinson's disease chronic March 202024 3:22pm Polyneuropathy chronic March 20 025 3:22pm Acute sinusitis acute May 9:40pm Closed head injury acute May 212024 9:40pm Dehydration acute June 08 9:40pm History of dementia acute June 08, 2025 9:40pm History of Parkinson's disease acute June 08, 2025 9:40pm Obesity (BMI 30-39.9) acute May 9:40pm Syncope acute June 08 9:40pm Syncope and collapse acute June 08, 2025 9:40pm [facility] Work Phone: 1(905) 642-196705-01-2025 Evaluation note* Diagnosis Onset Date Resolution Status Admit Date Dysphagia acute March 20, 2025 3:22pm Abnormality of gait and mobility chr onic March 20, 2025 3:22pm Dementia chronic March 20, 2025 3:22pm Parkinson's disease chronic March 202024 3:22pm Polyneuropathy chronic March 20, 025 3:22pm Acute sinusitis resolved May 9:40pm Dehydration resolved June 08 9:40pm Syncope and collapse resolved June 08, 2025 9:40pm Closed head injury inactive May 212024 9:40pm History of dementia inactive June 08, 2025 9:40pm History of Parkinson's disease inact joseph June 08, 2025 9:40pm Obesity (BMI 30-39.9) inactive May 9:40pm Syncope inactive June 08 9:40pm [facility] Work Phone: 1(417) 566-943905-01-2025 Evaluation note* Diagnosis Onset Date Resolution Status Admit Date Dysphagia acute March 20, 2025 3:22pm Abnormality of gait and mobility chronic March 20, 2025 3: 22pm Dementia chronic March 20, 2025 3:22pm Parkinson's disease chronic March 202024 3:22pm Polyneuropathy chronic March 20, 2 025 3:22pm Acute sinusitis resolved May 9:40pm Dehydration resolved June 08 9:40pm Syncope and collapse resolved June 08, 2025 9:40pm Closed head injury inactive May 212024 9:40pm History of dementia inactive June 08, 2025 9:40pm History of Parkinson's disease inact joseph June 08, 2025 9:40pm Obesity (BMI 30-39.9) inactive May 9:40pm Syncope inactive June 08 9:40pm Dysphagia acute June 24 2:20pm [facility] Work Phone: 1(393) 581-786305-01-2025 Evaluation note* Diagnosis Onset Date Resolution Status Admit Date Dysphagia acute March 20, 2025 3:22pm Abnormality of gait and mobility chronic March 20, 2025 3: 22pm Dementia chronic March 20, 2025 3:22pm Parkinson's disease chronic March 202024 3:22pm Polyneuropathy chronic March 20, 2 025 3:22pm Acute sinusitis resolved May 9:40pm Dehydration resolved June 08 9:40pm Syncope and collapse resolved June 08, 2025 9:40pm Closed head injury inactive May 212024 9:40pm History of dementia inactive June 08, 2025 9:40pm History of Parkinson's disease inact joseph June 08, 2025 9:40pm Obesity (BMI 30-39.9) inactive May 9:40pm Syncope inactive June 08 9:40pm Dysphagia acute June 24 2:20pm Fatigue acute June 26 1:05pm [place] [employer] [facility] Work Phone: 1(344) 143-150205-01-2025 Evaluation note* Diagnosis Onset Date Resolution Status Admit Date Dysphagia acute March 20, 2025 3:22pm Abnormality of gait and mobility chronic March 20, 2025 3: 22pm Dementia chronic March 20, 2025 3:22pm Parkinson's disease chronic March 202024 3:22pm Polyneuropathy chronic March 20, 2 025 3:22pm Acute sinusitis resolved May 9:40pm Dehydration resolved June 08 9:40pm Syncope and collapse resolved June 08, 2025 9:40pm Closed head injury inactive May 212024 9:40pm History of dementia inactive June 08, 2025 9:40pm History of Parkinson's disease inact joseph June 08, 2025 9:40pm Obesity (BMI 30-39.9) inactive May 9:40pm Syncope inactive June 08 9:40pm Dysphagia acute June 24 2:20pm Fatigue acute June 26 1:05pm Essential (primary) hypertension chronic June 27, 2025 1:22pm HLD (hyperlipidemia) chronic 2024 1:22pm Paroxysmal atrial fibrillation chron ic June 27, 2025 1:22pm [employer] Work Phone: 1(684) 783-726505-01-2025 Evaluation note* Diagnosis Onset Date Resolution Status Admit Date Dysphagia acute March 20, 2025 3:22pm Abnormality of gait and mobility chronic March 20, 2025 3: 22pm Dementia chronic March 20, 2025 3:22pm Parkinson's disease chronic March 202024 3:22pm Polyneuropathy chronic March 20, 2 025 3:22pm Acute sinusitis resolved May 9:40pm Dehydration resolved June 08 9:40pm Syncope and collapse resolved June 08, 2025 9:40pm Closed head injury inactive May 212024 9:40pm History of dementia inactive June 08, 2025 9:40pm History of Parkinson's disease inact joseph June 08, 2025 9:40pm Obesity (BMI 30-39.9) inactive May 9:40pm Syncope inactive June 08 9:40pm Dysphagia acute June 24 2:20pm Dysphagia acute June 26 1:05pm Fatigue acute June 26 1:05pm Abnormality of gait and mobility chronic June 26, 2025 1:05pm Dementia chronic June 26 1:05pm Parkinson's disease chronic 2024 1:05pm Polyneuropathy chronic June 1:05pm Sinus tachycardia acute June 27, 2025 1:22pm Essential (primary) hypertension chronic June 27, 2025 1:22pm HLD (hyperlipidemia) chronic Augu 2024 1:22pm Paroxysmal atrial fibrillation chron ic June 27, 2025 1:22pm [facility] Work Phone: 1(591) 286-416103-28-2025 Radiology Diagnostic study note [facility] Imaging Services [address] [place] [address] Spine Cervical without Contras MR#: [id number] Acct: [id number] Name: LUIS ARMANDO GRIFFITH Rep #: [id number] : 1945 M 79 From: Roopa Corbett MD PCP: Dr. Ja Cooley MD Status: RE G ER Study:Spine Cervical without Contras Date of Exam: 02/14/25 Exam# [id number] Ordering Dr: Darien Soto DO PROCEDURE: SPINE [...] ACUTE CERVICAL FRACTURE. DEGENERATIVE CHANGES. Reading [facility]: [facility] CC: Dr. Ja Cooley MD; Dr. Joe Soto DO ~ Communications Department Chair: Signed [facility]03-28-2025 Radiology Diagnostic study note [facility] Imaging Services [address] [place] [address] Brain/Head without Contrast MR#: [id number] Acct: [id number] Name: LUIS ARMANDO GRIFFITH Rep #: [id number] : 1945 M 79 From: Roopa Corbett MD PCP: Dr. Ja Cooley MD Status: RE G ER Study:Brain/Head without Contrast Date of Exa m: 02/14/25 Exam# [id number] Ordering Dr: Darien Soto DO EXAM: BRAIN/HEAD [...] ischemic change and age-related change. Reading Location: [facility] CC: Dr. Ja Cooley MD; Dr. Joe Soto DO ~ Communications Department Chair: Signed [facility]03-20-2025 Evaluation note* Diagnosis Onset Date Resolution Status [...] Polyneuropathy chronic March 20, 2 025 3:22pm [facility] Work Phone: 1([phone]) 141-981003-04-2025 Radiology Diagnostic study note [facility] Imaging Services [address] [place] [address] Chest PA and Lateral MR#: [id number] Acct: [id number] Name: LUIS ARMANDO GRIFFITH Rep #: [id number] : 1945 M 79 From: Kristy [facility] MD PCP: Dr. Ja Cooley MD Status: RE G CLI Study:Chest PA and Lateral Date of Exam: 01/21/25 Exam# [id number] Ordering Dr: Ja Cooley MD EXAM: XR Chest, 2 Views CLINICAL INDICATION: TECHNIQUE: Frontal and lateral views of the chest. COMPARISON: No relevant prior studies available. FINDINGS: LUNGS AND PLEURAL SPACES: Unremarkable. No consolidation. No pneumothorax. HEART: Unremarkable. No cardiomegaly. MEDIASTINUM: Unremarkable. Normal mediastinal contour. BONES/JOINTS: Unremarkable. No acute fracture. RAD/Chest PA and Lateral IMPRESSION: No acute cardiopulmonary process. [facility] CC: Dr. Ja Cooley MD ~ Communications Department Chair: Signed [facility]01-21-2025 Evaluation note* Diagnosis Onset Date Resolution Status Admit Date Diplopia acute December 10, 2024 10:37am Dysphagia acute December 10, 2024 10:37am Abnormality of gait and mobility chronic December 10 10:37am Dementia chronic December 10, 2024 10:37am Parkinson's disease chronic 2024 10:37am Polyneuropathy chronic December 102024 10:37am [facility] Work Phone: 1(768) 362-915801-21-2025 Evaluation note* Diagnosis Onset Date Resolution Status [...] mobility chronic February 06, 2025 1:00pm Dementia February 06 1:00pm Parkinson's disease February 06, 2025 1:00pm Polyneuropathy chronic January 1:00pm [facility] Work Phone: 1(834) 362-787301-21-2025 Evaluation note* Diagnosis Onset Date Resolution Status [...] Dementia chronic February 06 1:00pm Parkinson's disease February 06, 2025 1:00pm Polyneuropathy chronic January 1:00pm Dysphagia acute March 20, 2025 3:22pm Abnormality of gait and mobility chronic March 20, 2025 3: 22pm Dementia chronic March 20, 2025 3:22pm Parkinson's disease chronic March 202024 3:22pm Polyneuropathy chronic March 20, 2 3:22pm [facility] Work Phone: 1(265) 455-171308-02-2023 [facility] 02-15-2023 NoteHNO ID: [id number] Author: Willis Ryder, PT, DPT Service: ? Author Type: Physical Therapist Type: Progress Notes Filed: 02/15/2023 7:45 AM Note Text: 02/15/2023 [facility] REHABILITATION AND SPORTS THERAPY PHYSICAL THERAPY DISCONTINUANCE [...] follow-up appointments due to fx of foot. Willis Ryder, PT, [facility]03-28-2023 Miscellaneous Notes* Telephone Encounter - Mary Harrison RN - 02/14/2023 3:08 PM EDT MC message sent to patient and for further assessment. Awaiting reply. YVONNE Naik, RN February 14, 2023 3:08 PM * Telephone Encounter - Mary Harrison RN - 02/14/2023 3:04 PM EDT Received voicemail from patients' on Mon02/14/2023 2:28 PM Transcript below: This is Brennen Griffith. My phone number is [phone]. I'm calling for my Luis Armando Griffith. His date of is 1945. I'm directing this to Dr. Nieves's nurse. Luis Armando fell Monday morningand he broke his ankle [...] really bad or it's gonna be a group home and I don't wannado that so please give me a call at your earliest convenience. Thank you. Abbey. Message shared with CAR for further guidance. YVONNE Naik, RN February 14, 2023 3:04 PM * Telephone Encounter - Raeann Vizcarra - 02/14/2023 2:22 PM EDT Patient's spouse (Brennen) called requesting to speak to medical staff regarding Luis Armando's condition. Brennen reports Luis Armando has had an increase in falls/weakness that they believe to be related to Parkinson's. Brennen also states that Luis Armando has become more aggressive. Brennen is very concerned. Please call her at [phone]. Raeann Vizcarra documented in this encounterOhiohealth O'Bleness [facility]03-25-[address] Farooq [facility] February 11, 2023 2:01pm Note Date/Time February 11, 2023 1:2 0pm [facility] Medical Records Department [address] [place] [address] Emergency Department Summary 02/11/23 MR#: [id number] Acct: [id number] Name: LUIS ARMANDO GRIFFITH Rep #:[id number] 20 : 1945 77 From: Osman Farooq MD PCP: Dr. Ja Cooley MD Status:RE G ER Location: ED [...] bear weight on it since the injury. [facility] Medical History Arthritis Back problem Cataract Essential [...] no malocclusion, able to move his mandible igqu-yjb-bkjpw without any discomfort. Zygomatic arch is nontender [...] Moderate adjacent soft tissue swelling. Electronically Signed: Miko Blanton MD, JD at 13:46 EDT , Brain CT 02/11/23 13:22 IMPRESSION: No acute changes. Moderate cortical and central atrophy. Mild chronic microvascular ischemic change. Mild cerebellar atrophy. Electronically Signed: Miko Blanton MD, JD at 13:49 EDT , [...] 25 mg PO QHS Primary Care Provider: Ja Cooley Referrals: Ja Cooley MD [Primary Care Provider] - Arnaud [...] your Primary Care Provider. Call [facility] ([phone]) or report to the closest Emergency Room. Call 911 if necessary. 02/11/23 1401 <Electronically signed by Osman Farooq MD> Cosigner Signature (if applicable): CC: Dr. Ja Cooley MD; Dr. Arnaud Jean-Baptiste MD ~ Signed [facility] Work Phone: 1(873) 847-888202-24-2023 Miscellaneous Notes* Telephone Encounter - Karen Parra RN - 01/13/2023 2:26 PM EST Received voicemail 01-13-23 at 12:31 PM. My name is Brennen Griffith. My phone number is [phone]. This is in regard to Luis Armando Griffith. I'm calling to return a call. [...] PM EST Voicemail received January 10, 2023 143 My name is Brennen Griffith. My phone number is [phone]. My 's name is Luis Armando Griffith. He viki patient of Dr. Nieves. [...] what we need to do to help Luis Armando. Thank you. Abbey moreno now. Call to [...] to provider for review. documented in this encounterOhiohealth O'Bleness Hospital01-23-2023 NoteHNO ID: [id number] Author: Gary Ruiz APRN.[facility] Service: ? Author Type: Nurse Practitioner Type: Progress Notes Filed: 12/13/2022 10:48 PM Note Text: [facility] - FOLLOW UP EVALUATION MD Bessie Gavin [address] [facility] [address] Dear Ja Cooley MD: I had the [...] Flowsheet Row OT/PT/Speech Visit from 10/04/2022 in [facility] OT/PT/Speech Visit from 08/25/2022 in [facility] T [...] three times daily. insulin (more content not included)...[facility] [id number] Instructions* Patient Instructions* Gary Ruiz APRN.CNP - 12/12/2022 2:56 PM EST [...] canhave them on file here at [facility]. Interested in clinical research? Not currently Movement Disorders Medication Schedule: Medications 6am 12pm 5pm Bedtime Sinemet 25/100 2 2 1 1 Sertaline 50mg 1 Return in about 6 months (around 06/11/2023). If there are any concerns before your next visit, please call or you can send a message through Manifact. You can also now schedule and select appointments through Manifact. Gary Ruiz APRN.GUADALUPE documented in this encounterOhiohealth O'Bleness Hospital01-23-2023 History of Present illness Narrative* Gary Ruiz APRN.CNP - 12/12/2022 2:00 PM EST [facility] - FOLLOW UP EVALUATION MD Bessie Gavin [address] [facility] [address] Dear Ja Cooley MD: I had the [...] Flowsheet Row OT/PT/Speech Visit from 10/04/2022 in [facility] Out[facility] Therapy OT/PT/Speech Visit from 08/25/2022 in [facility] T [...] D3 50 MCG, 2,000 UNIT, GUMMIES) fluticasone vicrxkw-zkzqajoxgdyf-fkdbtefyyi (TRELEGY ELLIPTA) 200-62.5-25 mcg powder inhaler Inhale1 [...] 37.42 kg/m . Movement Disorders Scales Performed: [place] Cognitive Assessment (MoCA) Visuospatial/Executive 5 Naming 2 [...] he underwent surgical evaluation at [facility] and DaTscan done there was indicative of [...] canhave them on file here at [facility]. Interested in clinical research? Not currently Updated Movement Disorders Medication Schedule: Medications 6am 12pm 5pm Bedtime Sinemet 25/100 2 2 1 1 Sertaline 50mg 1 Level of service : 63075 (40-54 min). Time spent 51 ( 1:54pm-2:45pm) min on the day of service, which included preparing to see the patient, mecg-jm-ovkw patient care, completing clinical documentation, obtaining and/or reviewing separately obtained history, performing a medically appropriate examination, and counseling and educating the patient/family/caregiver. Gary Ruiz APRN.[facility] documented in this encounterOhiohealth O'Bleness Hospital11-21-2022 Miscellaneous Notes* Telephone Encounter - Thaddeus Wiklinson MD - 10/10/2022 3:30 PM EST Thanks for the FYI. Well done! JHS * Telephone Encounter - Mary Harrison RN - 10/10/2022 2:32 PM EST Received voicemail from patient on 10/10/2022 9:09 AM Transcript below: Morning this is Luis Armando Griffith and my phone number is [phone]. I calling to find out if there'sa [...] Voicemail left directing patient to a detailed Manifact message. Requested reply via MC or RCTO. Provided office number. Message shared with covering provider as CAR is HUGO. Mary Harrison MSN, RN October 10, 2022 2:44 PM documented in this encounterOhiohealth O'Bleness Hospital11-15-2022 NoteHNO ID: [id number] Author: Willis Ryder, PT, DPT Service: ? Author Type: Physical Therapist Type: Progress Notes Filed: 10/04/2022 3:13 PM Note Text: Episode Visit Count: 4 Therapist That Will Accept/Oversee The Plan Of Care: Willis Ryder Start of Care Date: 08/11/22 Onset Date: 11/20/20 Plan of Care Certification Date: 08/11/22 Next Certification Due Date: 10/20/22 Patient Identified by Name and Date of : Yes REHABILITATION AND SPORTS THERAPY PHYSICAL THERAPY TREATMENT NOTE ASSESSMENT: Luis Armando Griffith tolerated the session with no issues. [...] 35 Total Treatment Time Minutes (timed/untimed): 45 Willis Ryder PT, [facility]11-15-2022 History of Present illness Narrative* Willis Ryder PT, DPT - 10/04/2022 11:59 AM EST Episode Visit Count: 4 Therapist That Will Accept/Oversee The Plan Of Care: Willis Ryder Start of Care Date: 08/11/22 Onset Date: 11/20/20 Plan of Care Certification Date: 08/11/22 Next Certification Due Date: 10/20/22 Patient Identified by Name and Date of : Yes REHABILITATION AND SPORTS THERAPY PHYSICAL THERAPY TREATMENT NOTE ASSESSMENT: Luis Armando Griffith tolerated the session with no issues. [...] 35 Total Treatment Time Minutes (timed/untimed): 45 Willis Ryder PT DPT documented in this encounterOhiohealth O'Bleness Hospital10-28-2022 Miscellaneous Notes* Addendum Note - Jaylyn [...] go to [employer]. documented in this encounterOhiohealth O'Bleness Hospital10-28-2022 Miscellaneous Notes* Telephone Encounter - Mary Harrison RN - 09/16/2022 8:48 AM EDT Called and left voicemail that an updated RX had been sent for the Cymbalta. Provided office number for RCTO and option to message via Manifact. YVONNE Naik, RN September 16, 2022 8:48 AM * Telephone Encounter - Jaylyn Nieves MD - 09/15/2022 4:48 PM EDT The following approved medication requests have been transmitted electronically. Requested Prescriptions Signed Prescriptions Disp Refills DULoxetine (CYMBALTA) 30 mg capsule 90 capsule 3 Sig: Take 1 capsule by mouth once daily. Authorizing Provider: JAYLYN NIEVES MD * Telephone Encounter - Mary Harrison RN - 09/15/2022 4:35 PM EDT [...] 2022 4:40 PM * Telephone Encounter - Mary Harrison RN - 09/14/2022 2:41 PM EDT Called daughter Sabrina and shared update. She will confer with [...] if he's agreeable. * Telephone Encounter - Mary Harrison RN - 09/14/2022 1:41 PM EDT [...] as well as CT scan tomorrow. Daughter Sabrina aware and concerned as well. She is an active part of the family's care. Update shared with CAR. YVONNE Naik, RN September 14, 2022 1:54 PM * Telephone Encounter - Mary Harrison RN - 09/13/2022 12:30 PM EDT Returned call to Brennen. No reply, left detailed message requesting RCTO. Provided office number jay back. Awaiting reply. YVONNE Naik, RN September 13, 2022 12:31 PM * Telephone Encounter - Lena Gallo [facility]12/[place] 2:34 PM EDT NI PHONE NAME OF CALLER: Brennen RELATIONSHIP TO PATIENT: spouse PATIENT ID'D BY NAME/: yes REASON FOR CALL: States that his PD symptoms are worsening and she would like to speak with Stefania. CALLBACK #: [phone] OK TO LEAVE MESSAGE: ok only on this number - do not leave at home number LAST FUV: 08/04/22 with KA documented in this encounterOhiohealth O'Bleness Hospital10-27-2022 NoteHNO ID: [id number] Author: Willis Ryder, PT, DPT Service: ? Author Type: Physical Therapist Type: Progress Notes Filed: 09/15/2022 6:16 PM Note Text: Episode Visit Count: 3 Therapist That Will Accept/Oversee The Plan Of Care: Willis Ryder Start of Care Date: 08/11/22 Onset Date: 11/20/20 Plan of Care Certification Date: 08/11/22 Next Certification Due Date: 10/20/22 Patient Identified by Name and Date of : Yes REHABILITATION AND SPORTS THERAPY PHYSICAL THERAPY PROGRESS REPORT PLAN OF CARE UPDATE: Assessment: Luis Armando Griffith demonstrates improvements in strength. He hasmet [...] Patient to be seen for Therapeutic exercise (11049);Neuromuscular re-education (83391);Manual therapy (98726);Therapeutic activities (40892);Self-long-term management (51235);Gait Training (11365);Functional training;General Conditioning;Body Mechanics Training;Patient/Family/Caregiver Education PLAN FOR [...] Time Minutes (timed/untimed): 45 (more content not included)...[id number] NoteHNO ID: [id number] Author: Aleida Ramirez MD Service: ? Author [...] could not see the pt. REFERRAL SOURCE: [facility] Physician - Dr. Nieves CHIEF COMPLAINT: Anxiety. [...] Immediate Anxiety: mild Obsessions: none Compulsions: none Dena: Denies any symptoms of dena PTSD: The patient denies being expose to [...] 1 tablet by mouth twice daily. fluticasone uiyzbts-iinpfkjnwvlx-lilevokkvt (TRELEGY ELLIPTA) 200-62.5-25 mcg powder inhaler Inhale [...] malaise, signif (more content not included)...[facility]10-14-2022 History of Present illness Narrative* Aleida [...] Immediate Anxiety: mild Obsessions: none Compulsions: none Dena: Denies any symptoms of dena PTSD: The patient denies being expose to [...] 1 tablet by mouth twice daily. fluticasone jgotmvz-nerrlcvhqmch-bpgnriugue (TRELEGY ELLIPTA) 200-62.5-25 mcg powder inhaler Inhale1 [...] prior psychiatrist Therapist: No prior therapist Current Grain Drier Operator: None Last Hospitalization: Denies hospitalization. ECT: None Previous Discontinued Psychiatric Med Trials: None SUBSTANCE USE HISTORY: Nicotine: 40 py, quit 23 years ago Caffeine: Coffee, 3 cups/day Alcohol: Drank when he was younger, Marijuana: No history of use or dependence Cocaine: No history of use or dependence Opiods: No history of use or dependence SPIRITUALITY: Synagogue [facility]: Luis Armando Griffith is the oldest of 6 siblings. The patient was born and raised in [place]. He completed school He described his childhood [...] No SIGNATURE: Aleida Ramirez MD PATIENT NAME: Luis Armando Griffith DATE: September 02, 2022 TIME: 9:05 AM PAGER : see directory documented in this encounterOhiohealth O'Bleness Hospital10-06-2022 NoteHNO ID: [id number] Author: Willis Ryder PT, DPT Service: ? Author Type: Physical Therapist Type: Progress Notes Filed: 08/25/2022 6:11 PM Note Text: Episode Visit Count: 2 Therapist That Will Accept/Oversee The Plan Of Care: Willis Ryder Start of Care Date: 08/11/22 Onset Date: 11/20/20 Plan of Care Certification Date: 08/11/22 Next Certification Due Date: 10/20/22 Patient Identified by Name and Date of : Yes REHABILITATION AND SPORTS THERAPY PHYSICAL THERAPY TREATMENT NOTE ASSESSMENT: Luis Armando Griffith tolerated the session with no issues. [...] 38 Total Treatment Time Minutes (timed/untimed): 38 Willis Ryder PT, DPTMSamaritan [id number] History of Present illness Narrative* Willis Ryder PT, DPT - 08/25/2022 5:11 PM EDT Episode Visit Count: 2 Therapist That Will Accept/Oversee The Plan Of Care: Willis Ryder Start of Care Date: 08/11/22 Onset Date: 11/20/20 Plan of Care Certification Date: 08/11/22 Next Certification Due Date: 10/20/22 Patient Identified by Name and Date of : Yes REHABILITATION AND SPORTS THERAPY PHYSICAL THERAPY TREATMENT NOTE ASSESSMENT: Luis Armando Griffith tolerated the session with no issues. [...] 38 Total Treatment Time Minutes (timed/untimed): 38 Willis Ryder PT, DPT documented in this encounterOhiohealth O'Bleness Hospital09-22-2022 NoteHNO ID: [id number] Author: Willis Bebb, PT, DPT Service: ? Author Type: Physical Therapist Type: Progress Notes Filed: 08/11/2022 1:45 PM Note Text: Episode Visit Count: 1 Therapist That Will Accept/Oversee The Plan Of Care: Willis Ryder Start of Care Date: 08/11/22 Onset Date: 11/20/20 Plan of Care Certification Date: 08/11/22 Next Certification Due Date: 10/20/22 Patient Identified by Name and Date of : Yes REHABILITATION AND SPORTS THERAPY PHYSICAL THERAPY EVALUATION PLAN OF CARE: Assessment: Luis Armando Griffith presents with diagnosis of Parkinson's Disease [...] Planned: 4 Planned Treatment Interventions: Therapeutic exercise (56425);Neuromuscular re-education (85828);Manual therapy (82696);Therapeutic activities (88852);Self-long-term management (02743);Gait Training (71850);Functional training;General Conditioning;Body Mechanics Training;Patient/Family/Caregiver Education PLAN FOR NEXT VISIT: Assess response to HEP. Further hip and ankle strengthening. Add Bridges. Standing PWR ex. Patient demonstrates good understanding of plan of care and treatment. The above goals and plan of care were discussed and agreed upon by patient/family. SUBJECTIVE: Luis Armando Griffith is a 77 year old male [...] the average of the (more content not included)...[place] [id number] NoteHNO ID: [id number] Author: Jaylyn Nieves MD Service: ? Author Type: Physician Type: Progress Notes Filed: 08/04/2022 5:35 PM Note Text: [facility] - FOLLOW UP EVALUATION Ja Cooley MD [address] [facility] [address] I had the pleasure of seeing Mr. Griffith for follow up today. He is a 77 year old right-handed male with a history of tremor since 2019. He is seen with his and daughter, Sabrina. Subjective Previous Plan-03/29/2022 Visit: Resume Sinemet 1.5 [...] 1 tablet by mouth twice daily. fluticasone mndmlql-jtphafjdeyfk-sostojqgwr (TRELEGY ELLIPTA) 200-62.5-25 mcg powder inhaler Inhale [...] table (more content not included)... [facility]09-15-2022 Instructions* Patient Instructions* Jaylyn Nieves MD [...] or you can send a message through Manifact. You can also now schedule and select appointments through Manifact. Jaylyn Nieves MD documented in this encounterOhiohealth O'Bleness Hospital09-15-2022 History of Present illness Narrative* Jaylyn Nieves MD - 08/04/2022 2:20 PM EDT [facility] - FOLLOW UP EVALUATION Ja Cooley MD [address] [facility] [address] I had the pleasure of seeing Mr. Griffith for follow up today. He is a 77 year old right-handed male with a history of tremor since 2019. He is seen with his and daughter, Sabrina. Subjective Previous Plan-03/29/2022 Visit: Resume Sinemet 1.5 [...] 1 tablet by mouth twice daily. fluticasone zkqzpsj-obyowjprtmbp-wxdzpkcffo (TRELEGY ELLIPTA) 200-62.5-25 mcg powder inhaler Inhale1 [...] he underwent surgical evaluation at [facility] and DaTscan done there was indicative of [...] gait he reports both lightheadedness and imbalance. [place] symptomatic today upon standing but orthostatics were [...] or around: 11/03/22 Level of service : 23928 (40-54 min). Time spent 45 min on the day of service, which included preparing to see the patient, eedk-kb-ekfo patient care, completing clinical documentation, performing a [...] Sincerely, Jaylyn Nieves MD documented in this encounterOhiohealth O'Bleness Hospital09-09-2022 NoteHNO ID: [id number] Author: Willis Ryder PT, DPT Service: ? Author Type: Physical Therapist Type: Progress Notes Filed: 07/29/2022 4:54 PM Note Text: 07/29/2022 [facility] REHABILITATION AND SPORTS THERAPY PHYSICAL THERAPY DISCONTINUANCE [...] to therapy or scheduled additional follow-up appointments. Willis Ryder PT, DPTHOSamaritan [id number] Miscellaneous Notes* Telephone Encounter - Mary Harrison RN - 07/21/2022 12:08 PM EDT Received voicemail from patient's on Rosalia 07/21/2022 10:52 AM Transcript below: Kaila my name is Brennen Griffith. My 's name is Luis Armando Griffith. He is a patient of Dr. Gordillo. My phone number is [phone]. I'm calling to speak to somebody regarding Luis Armando. His Parkinson'ssymptoms are becoming much much worse [...] Updates shared with MD CAR & SS, DEPARTMENT CHAIRPERSON. If any guidance is suggested, RN will contact with feedback. YVONNE Naik, RN July 21, 2022 12:42 PM documented in this encounterOhiohealth O'Bleness Hospital06-29-2022 Miscellaneous Notes* Telephone Encounter - Jaylyn [...] mouth three times daily. REJI: No Blossom Brown documented in this encounterOhiohealth O'Bleness Hospital05-10-2022 NoteHNO ID: [id number] Author: Maine Medel, PT, DPT Service: ? [...] PHYSICAL THERAPY EVALUATION PLAN OF CARE: Assessment: Luis Armando Griffith presents with diagnosis of PD that [...] SLS >10 seconds B Become involved with [facility] in home exercise program. Patient will demonstrate increase in B hip strength strength to 5/5 during manual muscle testing in order to improve function for balance Increase strength in ankle to 5/5 for balance. Be able to turn in a huslia in 8 steps. Decrease tug to <10 seconds without AD for improved richard and step length Patient Goals: to learn about PD, to reduce falls Planned Interventions, Frequency, and Duration: Current Frequency: 1x/week Duration: 4 weeks (starting in one month) Total Number of Visits Planned: 4 Planned Treatment Interventions: Therapeutic exercise (46423);Neuromuscular re-education (71816);Manual therapy (72203);Therapeutic activities (84282);Self-long-term management (00198);Gait Training (13906);Functional training;General Conditioning;Body Mechanics Training PLAN FOR NEXT VISIT: turning assessment, progress balance, and cadnce/step length Patient demonstrates good understanding of plan of care and treatment. The above goals and plan of care were discussed and agreed upon by patient/family. SUBJECTIVE: Luis Armando Griffith is a 76 year old male [...] for double vision Visi (more content not included)...[id number] NoteHNO ID: [id number] Author: Heena Romano OTR/L Service: ? Author Type: Occupational Therapist Type: Progress Notes Filed: 03/29/2022 5:40 PM Note Text: Episode Visit Count: 2 Therapist That Will Oversee The Plan Of Care: Maria Isabel Romano Start of Care Date: 03/29/22 Onset Date: 06/14/21 Plan of Care Certification Date: 03/29/22 Next Certification Due Date: 03/29/22 Patient Identified by Name and Date of : Yes [facility] REHABILITATION AND SPORTS THERAPY OCCUPATIONAL THERAPY EVALUATION PLAN OF CARE: Assessment: Luis Armando Griffith presents with diagnosis of parkinsonism that [...] discussed and agreed upon by patient/family. SUBJECTIVE: Luis Armando Griffith is a 76 year old male [...] WITH LEVEL OF FUNCTION: Hand Strength R Personal Secretary Position 2 (lbs): 71 lbs L Personal Secretary Position 2 (lbs): 60 lbs R Lateral [...] States/Identifies;Return Demonstration TREATMENT: OT Treatment Interventions : Self-Correction Management Evaluation Self-Correction Management: 1: Pt and spouse educated in role of OT 2: Discussed importance of hydrating with medication and avoiding proteins with meds (more content not included)...[facility] [id number] NoteHNO ID: [id number] Author: Michelle Ro [facility]-COMPUTER SYSTEMS ANALYST Service: ? Author Type: Speech Language Pathologist Type: Progress Notes Filed: 03/29/2022 3:59 PM Note Text: Episode Visit Count: 1 Therapist That Will Oversee The Plan Of Care: Andrade Start of Care Date: 03/29/22 Onset Date: 11/20/20 Plan of Care Certification Date: 03/29/22 Patient Identified by Name and Date of : Yes [facility] REHABILITATION AND SPORTS THERAPY SPEECH and SWALLOW [...] position 20-30 minutes following all oral intake COMPUTER SYSTEMS ANALYST Recommendations: Swallowing Precautions;Discontinue Speech Therapy Results and [...] discussed and agreed upon by patient/family. SUBJECTIVE: Luis Armando Griffith is a 76 year old male [...] MBS (pt reports had MBS done at [facility] last year, which pt was told 'he did fine' and no recommendations for follow up ST or diet modifications made) Clinical Swallow [place] Swallow Protocol: Fail Fail: Coughing episodes (x1 [...] clear/cough after water (more content not included)... [id number] History of Present illness Narrative* Maine Lizy, PT, DPT - 03/29/2022 3:40 PM EDT Episode Visit Count: 1 Therapist That Will Oversee The Plan Of Care: maine Medel Start of Care Date: 03/29/22 Onset Date: 11/20/20 Plan of Care Certification Date: 03/29/22 Next Certification Due Date: 05/28/22 Patient Identified by Name and Date of : Yes REHABILITATION AND SPORTS THERAPY PHYSICAL THERAPY EVALUATION PLAN OF CARE: Assessment: Luis Armando Griffith presents with diagnosis of PD that [...] SLS >10 seconds B [facility] home exercise program. Patient will demonstrate increase in B hip strength strength to 5/5 during manual muscle testing inorder to improve function for balance Increase strength in ankle to 5/5 for balance. Be able to turn in a huslia in 8 steps. Decrease tug to <10 seconds without AD for improved richard and step length Patient Goals: to learn about PD, to reduce falls Planned Interventions, Frequency, and Duration: Current Frequency: 1x/week Duration: 4 weeks (starting in one month) Total Number of Visits Planned: 4 Planned Treatment Interventions: Therapeutic exercise (46131);Neuromuscular re- education (50289);Manual therapy (95326);Therapeutic activities (82447);Self- long-term management (94385);Gait Training (08528);Functional training;General Conditioning;Body Mechanics Training PLAN FOR NEXT VISIT: turning assessment, progress balance, and cadnce/step length Patient demonstrates good understanding of plan of care and treatment. The above goals and plan of care were discussed and agreed upon by patient/family. SUBJECTIVE: Luis Armando Griffith is a 76 year old male [...] step length 5: education about getting to [employer] and bike research Skilled Intervention: Patient was [...] Maine Medel PT, DPT documented in this encounterOhio[facility] History of Present illness Narrative* Michelle Ro [facility]-COMPUTER SYSTEMS ANALYST - 03/29/2022 2:49 PM EDT Episode Visit Count: 1 Therapist That Will Oversee The Plan Of Care: Andrade Start of Care Date: 03/29/22 Onset Date: 11/20/20 Plan of Care Certification Date: 03/29/22 Patient Identified by Name and Date of : Yes [facility] SPEECH and SWALLOW [...] position 20-30 minutes following all oral intake COMPUTER SYSTEMS ANALYST Recommendations: Swallowing Precautions;Discontinue Speech Therapy Results and [...] discussed and agreed upon by patient/family. SUBJECTIVE: Luis Armando Griffith is a 76 year old male [...] MBS (pt reports had MBS done at [facility] last year, which pt was told 'he [...] Eval Sound Production with Language Expression and Grand Jury Deputy Sheriff (96656) Swallow / Dysphagia (83697): Skilled Intervention: Educated and advised patient / caregiver on texture and liquid consistency recommendations., Instructed patient / caregiver on recommended compensatory strategies to maximize safety with oral intake while maintaining nutrition, hydration and medication stability. Speech/Language Therapy (17055): Skilled Intervention: Educated and instructed patient on [...] Eval Sound Production with Language Expression and Grand Jury Deputy Sheriff (55339), Clinical Swallow Evaluation (96414), Speech Treatment (07281) and Dysphagia Treatment (45347) Total time / Length of visit: 60 minutes MARSHA HopperCOMPUTER SYSTEMS ANALYST documented in this encounterOhiohealth O'[facility]len[facility]05-10-2022 NoteHNO ID: [id number] Author: Jaylyn Nieves MD Service: ? Author Type: Physician Type: Progress Notes Filed: 03/29/2022 7:35 PM Note Text: [facility] - Multidisciplinary Clinic Jaylyn Nieves [address] [facility] [address] Ja Cooley MD [address] [facility] [address] I had the pleasure of seeing Mr. [...] visit underwent surgical evaluation at [facility] and DaTscan done there indicative of neurodegenerative [...] this visit (more content not included)...[facility]05-10-[facility] Instructions* Patient Instructions* Jaylyn Nieves MD [...] or you can send a message through Man[employer]. You can also now schedule and select appointments through Manifact. Jaylyn Nieves MD documented in this encounterOhiohealth [facility]05-10-2022 History of Present illness Narrative* Jaylyn Nieves MD - 03/29/2022 12:27 PM EDT [facility] - [facility]isciplinary Clinic Jaylyn Nieves [address] [facility] [address] Ja Cooley MD [address] [facility] [address] I had the pleasure of seeing Mr. [...] last visit underwent surgical evaluation[facility] and DaTscan done there indicative of neurodegenerative [...] in 1 week Level of service : 07664 (40-54 min). Time spent 53 min on the day of service, which included preparing to see the patient, otdy-xn-evkc patient care, completing clinical documentation, counseling and [...] Sincerely, Jaylyn Nieves MD documented in this encounterOhiohealth O'[facility]05-04-2022 Miscellaneous Notes* Telephone Encounter - Cali Haas MA - 03/23/2022 10:44 AM EDT I called patient to get him pre-roomed for his upcoming appointment. I had to leave a voicemail fora returned call. If patient calls back please transfer call to myself or a clinical staff member to complete this process. Thanks! Cali Haas MA documented in this encounterOhiohealth O'[facility]04-28-2022 NoteHNO ID: [id number] Author: Jaylyn Nieves MD Service: ? Author Type: Physician Type: Progress Notes Filed: 03/18/2022 4:12 PM Note Text: [facility] - FOLLOW UP EVALUATION No referring provider defined for this encounter. MD Bessie Gavin [address] [facility] [address] [facility] [address] I had the pleasure of seeing Mr. [...] to be helpful Interval History Seen at [facility] for surgical evaluation. SDR was too [...] times daily. (more content not included)...[facility]04-28-[facility] Instructions * Patient Instructions* Jaylyn Nieves [...] or you can send a message through Manifact. You can also now schedule and select appointments through Man[employer]. Jaylyn Nieves MD Parkinson s Multidisciplinary Clinic [...] appointment. This call will serve as a hzn-lbtsd-gx and be used to review your medications, [...] caregivers, and staff alike. documented in this encounterOhiohealth O'[facility]04-28-2022 History of Present illness Narrative* Jaylyn Nieves MD - 03/17/2022 2:51 PM EDT [facility] - FOLLOW UP EVALUATION No referring provider defined for this encounter. MD Bessie Gavin [address] [facility] [address] I had the pleasure of seeing Mr. [...] to be helpful Interval History Seen at [facility] for surgical evaluation. SDR was too [...] last visit underwent surgical evaluationat [facility] and DaTscan done there indicative of neurodegenerative [...] or around: 07/17/22 Level of service : 67167 (40-54 min). Time spent 54 min on the day of service, which included preparing to see the patient, zfdu-dm-icrp patient care, completing clinical documentation, obtaining and/or [...] Sincerely, Jaylyn Nieves MD documented in this encounterOhiohealth O'[facility]03-24-2022 History of Present illness Narrative* Jaspreet Qureshi MA - 02/10/2022 11:48 AM EDT Images from the original note were not included. SDR for Shai came in at 0.34 with 973 available elements. Other than the low SDR no significantCT deviations noted. documented in this [id number] History of Present illness Narrative* Barb Morton MD - 12/22/2021 10:05 AM EST Video Visit [facility], NEUROSCIENCE [address] [place] [address] [place] [address] Via Real-time Synchronous Audiovisual [facility] 12/21/2021 Barb Morton MD Provider Location: [facility] Patient Location Diamond Grader: None Patient Location: Patient's Home Patient: Luis Armando Griffith Date of : 1945 (76 y.o. [...] that there are some limitations compared to urbu-er-rtup evaluations. We elected to proceed. Subjective Patient ID: Luis Armando Griffith is a 76 y.o. male. He [...] Office# Barb Morton MD documented in this [id number] Instructions* Patient Instructions* Barb Morton MD - 12/21/2021 1:33 PM EST Parkinson's Disease Continue the medication Use seroquel at night If you decide that you want to switch to Dr Royal let me know documented in this [id number] Miscellaneous Notes* Telephone Encounter - Jaspreet Qureshi MA - 11/09/2021 11:43 AM EST Spoke to Cali (Pharmacist) for clarification of patient's prescription carbidopa-levodopa (SINEMET) 25-100 mg per tablet [facility] will disp 540 (90 day supply) will 3 refills Please sign script that was called in documented in this [id number] History of Present illness Narrative* Barb Morton [...] pt on at 1230pm. documented in this [id number] History of Present illness Narrative* Barb Morton MD - 11/05/2021 12:21 PM EST I called on 11/05/21 to discuss the results of the meeting and to discuss questions documented in this [id number] History of Present illness Narrative* Jim Bradford [...] tremor. Therefore, the patient was evaluated by ourwavement disorders neurologist, Dr. Barb Morton, as to [...] Dr Morton will call. documented in this [id number] History of Present illness Narrative* Jaspreet Qureshi MA - 11/03/2021 2:29 PM EST Images from the original note were not included. SDR - 0.34 with 973 available elements. Other than the low SDR no significant CT deviations noted. documented in this [id number] History of Present illness Narrative* Sarah Mckenzie, PT - 10/28/2021 11:00 AM EST Images from the original note were not included. [facility] Physical Therapy Evaluation Today's Date 10/28/2021 Patient Name: Luis Armando Griffith Date of : 1945 Case Name: [...] whether he wants to follow-up hereor in [place] as it is significantly closer to home. [...] medications for tremor - has tried one. [place] drunk all of th time. Freezing of [...] mobility Social Support: Patient lives with others. Alevism, social, or cultural considerations to be made [...] in the last 12 months: Yes (concussion) Alevism, social, or cultural considerations to be made [...] at this time were answered. CPT Code 71728 Low 28751 Moderate 58235 High History 0 1-2 3+ Comorbidities: chronic [...] symptoms over time x Clinical Impression: . Luis Armando Griffith presents to [facility] outpatient neurological rehab services for PT [...] above number. Sarah Mckenzie, PT STATE LICENSE, PT.[id number] documented in this [id number] Instructions* Patient Instructions* Barb Morton MD - 10/05/2021 11:[address] Head Physical therapy DATSCAN-the yes/no Parkinson's disease test Jim Bradford is the navigator Dr. Barb Morton MD Neurology Office Information Jaspreet ReyesBrayden Qureshi MA Office# documented in this [id number] History of Present illness Narrative* Barb Morton MD - 10/05/2021 11:04 AM EST Subjective Patient ID: Luis Armando Griffith is a 76 y.o. male. He [...] whether he wants to follow-up hereor in [place] as [place] is significantly closer to home. [...] Without Contrast; Future - Ambulatory Ref to [facility] (PT/OT/ST); Future Patient Instructions Tremor CT Head Physical therapy DATSCAN-the yes/no Parkinson's disease test Jim Bradford is the navigator Dr. Barb Morton MD Neurology Office Information Jaspreet Qureshi MA Office# Dr. Barb Morton MD Neurology Office Information Jaspreet Qureshi MA Office# Barb Morton MD documented in this [id number] History of Present illness Narrative* Roberto Carlos [...] with simple mask at 10 LPM oxygen. foundry technician called. * Mame Machado PA-C - [...] informed. Mame Machado PA-C documented in this [facility] Work Phone: [phone] 185-751206-16-2021 Hospital Discharge instructions* Instructions* Willis Casillas RN - 05/05/2021 Shower with the Hibiclens product given to you in Pre-Admission Testing. Follow the instructions and wear clean clothes to bed and clean linen on the bed the night before surgery. Follow the instructions and shower the morning of surgery and wear clean, comfortable clothes to the hospital. Please bring your [facility] Information folder on the day of [...] call your surgeon. You may use the utility operator parking located at the main entrance on [address] [place] [address] and take the H elevator to the first floor for same day surgery. Take a left after exiting the elevator and check in at the desk. * Attachments The following attachments cannot be sent through Care Everywhere. * Laminotomy and Laminectomy: General Info (Mauritian) documented in this encounterSUMMA Work Phone: Discharge summary Author Surya Dumont [facility] Note Date/Time April 09, 2025 12:55 pm [facility] Medical Records Department [address] [place] [address] Emergency Department Summary 04/09/25 MR#: [id number] Acct: [id number] Name: LUIS ARMANDO GRIFFITH Rep #:[id number] : 1945 79 From: Surya Dumont MD PCP: Dr. Ja Cooley MD Status:RE G ER Location: ED [...] take blood thinners. Tetanus Immunization: <5 years [facility] Medical History Parkinson's disease Right bundle branch [...] change from the prior exam. Reading Location: [facility] Cervical Spine CT 04/09/25 11:34 IMPRESSION: 1. No acute fracture. 2. Degenerative changes of the cervical spine as described. Reading Location: [facility] Discharge Plan Triage Chief Complaint: Head [...] Days Qty: 15 0RF Primary Care Provider: Ja Cooley Referrals: Ja Cooley MD [Primary Care Provider] - 10 Day for suture removal Activity Restrictions/Additional Instructions: Have brandi removed by your primary care provider in 7 to 10 days. There were a total of 5 brandi inserted. Return to the emergency department with fever, drainage of pus from wound, new or worsening symptoms. Print Language: Mauritian Disposition Disposition: Home, Self Care What to do if you have Problems For any increased pain, shortness of breath, bleeding, nausea or vomiting, chestpain, or any unexpected problems, contact your Primary Care Provider. Call [facility] ([phone]) or report to the closest Emergency Room. Call 911 if necessary. 04/09/25 1255 <Electronically signed by Surya Dumont MD> Cosigner Signature (if applicable): CC: Dr. Ja Cooley MD ~ Signed [facility] Work Phone: Discharge summary Author Daphnie Narayanan [facility] Note Date/Time June 09, 2025 4:11 pm [facility] Medical Records Department [address] [place] [address] Instructions for Home/Discharge Instructions 06/09/25 1610 MR#: [id number] Acct: [id number] Name: LUIS ARMANDO GRIFFITH Rep #:[id number] : 1945 79 From: Daphnie Narayanan MD PCP: Dr. Ja Cooley MD Status:AD M SANDHYA Discharge Instructions DC O2, CPAP, BIPAP needs Home O2 Discharge instructions: No Dressing / Incision Discharge Activity: Return to Normal Activity Weight Bearing Status: Weight bearing as tolerated Dressing / Incision Call your doctor if you observe: Fever of 101 or Higher, Shortness of breath andSwelling in the ankles Follow Up Care Test Results: Test results from this visit will be discussed in further detail at your follow- up appointment, if applicable. Discharge Plan Admission Admit Date/Time: 06/08/25 21:40 Primary Reason for Your Visit: syncope Attending Provider: Daphnie Narayanan Primary Care Provider: Ja Cooley Consulting Providers: Geo Garza; Daphnie Narayanan Instructions Patient Instructions: Diagnosing Syncope Discharge Orders/Prescriptions Prescriptions: New amoxicillin-pot clavulanate 875-125 mg tablet 1 tab PO BID Qty: 10 0RF Continued pravastatin 80 mg tablet 80 mg PO [...] (vitamin D3) 25 mcg (1,000 unit) capsule 4,000 unit PO DAILY alfuzosin 10 mg tablet extended release 24 hr 10 mg PO DAILY Rx Instructions: administer after the same meal each day insulin glargine U-300 conc [Toujeo Max U-300 SoloStar] 300 unit/mL (3 mL) insulin pen 54 unit subcut DAILY finasteride 5 mg tablet 5 mg PO DAILY ropinirole 2 mg tablet 2 mg PO TID Qty: 270 1RF doxepin 25 mg capsule 25 mg PO QHS Qty: 90 1RF albuterol sulfate 90 mcg/actuation HFA aerosol inhaler 2 inh inhalation Q6H PRN (Reason: shortness of breath or wheezing) aspirin [Adult Aspirin Regimen] 81 mg tablet,delayed release (DR/EC) 81 mg PO QHS budesonide [Pulmicort] 1 mg/2 mL suspension for nebulization 1 mg inhalation Q6H Patient Comments: [NO ORIGINAL SIG] propranolol 60 mg capsule,extended release 24 hr 60 mg PO QHS carbidopa-levodopa 25-100 mg tablet 2 tab PO 4X/DAY Referrals / Follow Up: Ja Cooley MD [Primary Care Provider] - Within 1 Week Disposition Disposition (needs filled in before D/C Order can be placed): Assisted Living 06/09/25 1611<Electronically signed by Daphnie Narayanan MD>Daphnie Narayanan MD CC: Dr. Geo Garza DO; Dr. Ja Cooley MD; Dr. Daphnie Narayanan MD ~ Signed [facility] Work Phone: Evaluation note* Diagnosis Pre-op testing- Primary Preoperative examination, unspecified Abnormal EKG Nonspecific abnormal electrocardiogram (ECG) (EKG) Shortness of breath documented in this encounter [facility] Work Phone: Evaluation note* Diagnosis Abnormal electrocardiogram (ECG) (EKG) Shortness of breath Pre-op testing Preoperative examination, unspecified Abnormal EKG Nonspecific abnormal electrocardiogram (ECG) (EKG) documented in this encounter [facility] Work Phone: Evaluation note* Diagnosis Tremor, essential- Primary Essential and other specified forms of tremor [facility] [place] [facility]* Diagnosis Tremor- Primary Abnormal involuntary movements documented [facility] [place] [facility]* Diagnosis Tremor Abnormal involuntary movements Impaired mobility and activities of daily living Impairment of balance documented [facility] this [facility] [place] [facility]* Diagnosis Parkinson's disease (HCC)- Primary Paralysis agitans documented in this [facility] [place] noteNo assessment information availableWUniversity Hospitals Health System Work Phone: Evaluation note* Diagnosis Parkinsonism, unspecified Parkinsonism type (HCC)- Primary Essential tremor Essential and other specified forms of tremor Dysphagia, unspecified type Gait instability Abnormality of gait documented in this encounter [facility] note* Diagnosis Parkinsonism, unspecified Parkinsonism type (HCC)- Primary Dysphagia, oropharyngeal phase Dysarthria documented in this encounter [facility] note* Diagnosis Parkinson disease (HCC)- Primary Paralysis agitans documented in this encounter [facility] note* Diagnosis Gait instability- Primary Abnormality of gait Parkinsonism, unspecified Parkinsonism type (HCC) Dysphasia Other speech disturbance Oropharyngeal dysphagia Dysphagia, oropharyngeal phase Decreased activities of daily living (ADL) documented in this encounter [facility] note* Diagnosis Onset Date Resolution Status Essential (primary) hypertension chronic Paroxysmal atrial fibrillation [facility] Work Phone: Evaluation note* Diagnosis Parkinsonism, unspecified Parkinsonism type (HCC)- Primary Depression, unspecified depression type Anxiety Anxiety state, unspecified Orthostatic lightheadedness Dizziness and giddiness Dysphagia, unspecified type documented in this encounter [facility] note* Diagnosis Parkinsonism, unspecified Parkinsonism type (HCC)- Primary Gait instability Abnormality of gait Leg weakness, bilateral Other musculoskeletal symptoms referable to limbs Imbalance Abnormality of gait documented in this encounter [facility] note* Diagnosis MELISSA (generalized anxiety disorder)- Primary Generalized anxiety disorder Depression, unspecified depression type Parkinsonism, unspecified Parkinsonism type (HCC) documented in this encounter [facility] note* Diagnosis Parkinsonism, unspecified Parkinsonism type (HCC)- Primary Gait instability Abnormality of gait Leg weakness, bilateral Other musculoskeletal symptoms referable to limbs Imbalance Abnormality of gait documented in this encounter [facility] note* Diagnosis Parkinsonism, unspecified Parkinsonism type (HCC)- Primary Orthostatic hypotension Anxiety Anxiety state, unspecified documented in this encounter [facility] note* Diagnosis Onset Date Resolution Status Parkinsons acute Essential (primary) hypertension chronic HLD (hyperlipidemia) chronic Paroxysmal atrial fibrillation [facility] Work Phone: Evaluation note* Diagnosis Onset Date Resolution Status Polyneuropathy acute Abnormality of gait and mobility chronic Dementia chronic Parkinson's disease chronic Essential (primary) hypertension chronic HLD (hyperlipidemia) chronic Paroxysmal atrial fibrillation [facility] Work Phone: Evaluation note* Diagnosis Onset Date Resolution Status Abnormality of gait and mobility chronic Dementia chronic Parkinson's disease chronic Polyneuropathy chronic Fatigue noneactive [facility] Work Phone: Evaluation note* Diagnosis Onset Date Resolution Status Diplopia acute Right abducens nerve palsy a cute Abnormality of gait and mobility chronic Dementia chronic Parkinson's disease chronic Polyneuropathy chronic [facility] Work Phone: Evaluation note* Diagnosis Facial laceration, initial encounter- Primary Fall, initial encounter Open fracture of nasal bone, initial encounter [facility] Discharge instructionsWUniversity Hospitals Health System Work Phone: Hospital Discharge instructions Additional Instructions Leave boot on until you see orthopedicsWUniversity Hospitals Health System Work Phone: Hospital Discharge instructionsAdditional Instructions Adcw-bfp-glixeuo medications like Tylenol or ibuprofen as needed for pain. Have sutures removed in 5 days. Look for signs of infection including fever, increased redness to area, drainage of pus from wound. Return with new or worsening symptoms.[facility] Work Phone: Hospital Discharge instructionsAdditional Instructions Ice all sore areas. Tylenol for pain. Keep the wounds on his forehead and right knee clean. Clean daily with soap and water. Apply antibiotic ointment to prevent infection.[facility] Work Phone: Reason for referral (narrative)No reason for referral information availableWUniversity Hospitals Health System Work Phone: Reason for Referral Status Reason Specialty Diagnoses / Procedures Re ferred By Contact Referred To Contact Open Cardiology Diagnoses Pre-op testing Abnormal EKG Shortness of breath Procedures ECHO Pharmacological Stress Test Raeann Holland, [facility] [address] [facility] [address] [place] [address] Specialty Diagnoses / Procedures Referred By Conteduardo higginbotham Referred To Contact Neurology Diagnoses Tremor, essential RimmalliffPatricia MD [address] [place] [address] Barb Morton MD [address] [place] [address] Referral ID Status Reason Start Date Expiration Date V isits Requested Visits Authorized [id number] Pending Review 09/27/2021 09/27/2022 1 1 Specialty Diagnoses / Procedures Referred By Contac t Referred To Contact Rehabilitation Diagnoses Tremor Barb Morton MD [address] [place] [address] [place] [id number] Referral ID Status Reason Start Date Expiration Date V isits Requested Visits Authorized [id number] Authorized 10/05/2021 10/05/2022 1 1 Specialty Diagnoses / Procedures Referred By Contac t Referred To Contact Radiology Diagnoses Tremor Procedures CT Head Or Brain Without Contrast Barb Morton MD [address] [place] [address] [address] [place] [id number] Referral ID Status Reason Start Date Expiration Date V isits Requested Visits Authorized [id number] New Request 10/05/2021 10/05/2022 1 1 Specialty Diagnoses / Procedures Referred By Contac t Referred To Contact Radiology Diagnoses Tremor Procedures NM Brain Datscan SPECT CT Single Area Single Day Barb Morton MD [address] [place] [address] [place] [id number] Nuclear Medicine [address] [place] [phone] Referral ID Status Reason Start Date Expiration Date V isits Requested Visits Authorized [id number] Pending Review 10/05/2021 10/05/2022 4 4 Specialty Diagnoses / Procedures Referred By Contac t Referred To Contact Diagnoses Parkinsonism, unspecified Parkinsonism type (HCC) Procedures PROVIDER ORDERED FOLLOW UP OFFICE/OUTPATIENT [facility] MDM 60-74 MINUTES Jaylyn Nieves MD [address] [place] [id number] Referral ID Status Reason Start Date Expiration Date Visits Requested Visits Authorized [id number] Authorized PCP Requested Referral 03/17/2022 06/15/2022 1 1 Specialty Diagnoses / Procedures Referred By Contac t Referred To Contact Neurology / NEUROLOGICAL [facility] Diagnoses Parkinsonism, unspecified Parkinsonism type (HCC) Procedures CONSULT TO [facility] OFFICE/OUTPATIENT [facility] 60-74 MINUTES Jaylyn Nieves MD [address] [address] [facility] [address] [place] [address] Referral ID Status Reason Start Date Expiration Date Visits Requested Visits Authorized [id number] Authorized PCP Requested Referral 03/17/2022 03/17/2023 1 1 Specialty Diagnoses / Procedures Referred By Contac t Referred To Contact [facility] Diagnoses Parkinsonism, unspecified Parkinsonism type (HCC) Gait instability Procedures CONSULT TO PHYSICAL THERAPY PHYSICAL THERAPY [facility] HIGH COMPLEX 45 MINS Jaylyn Nieves MD [address] [place] [address] [facility] [address] [address] Referral ID Status Reason Start Date Expiration Date Visits Requested Visits Authorized [id number] Authorized PCP Requested Referral Auto-Generate d Referral 03/29/2022 03/29/2023 99 99 Specialty Diagnoses / Procedures Referred By Contac t Referred To Contact [facility] Diagnoses Parkinsonism, unspecified Parkinsonism type (HCC) Gait instability Decreased activities of daily living (ADL) Procedures CONSULT TO TRIMMER LOADER OCCUPATIONAL THERAPY EVAL HIGH COMPLEX 60 MINS Jaylyn Nieves MD [address] [address] Referral ID Status Reason Start Date Expiration Date Visits Requested Visits Authorized [id number] Authorized PCP Requested Referral Auto-Generate d Referral 03/29/2022 03/29/2023 99 99 Specialty Diagnoses / Procedures Referred By Contac t Referred To Contact Diagnoses Parkinsonism, unspecified Parkinsonism type (HCC) Oropharyngeal dysphagia Procedures CONSULT TO SPEECH THERAPY Jaylyn Nieves MD [address] [address] Referral ID Status Reason Start Date Expiration Date Visits Requested Visits Authorized [id number] Authorized PCP Requested Referral 03/29/2022 06/27/2022 3 3 Referral ID Status Reason Start Date Expiration Date Visits Requested Visits Authorized [id number] Authorized PCP Requested Referral 08/04/2023 1 1 Specialty Diagnoses / Procedures Referred By Contac t Referred To Contact [facility] Diagnoses Parkinsonism, unspecified Parkinsonism type (HCC) Procedures CONSULT TO PHYSICAL THERAPY PHYSICAL THERAPY EVALUATION HIGH COMPLEX 45 MINS Jaylyn Nieves MD [address] [address] [facility] [address] [place] [address] Referral ID Status Reason Start Date Expiration Date Visits Requested Visits Authorized [id number] Authorized PCP Requested Referral Auto-Generate d Referral 08/04/2022 08/04/2023 99 99 Specialty Diagnoses / Procedures Referred By Contac t Referred To Contact Diagnoses Parkinsonism, unspecified Parkinsonism type (HCC) Depression, unspecified depression type Procedures CONSULT TO PSYCHIATRY OFFICE/OUTPATIENT [facility] 60-74 MINUTES Jaylyn Nieves MD [address] [address] Referral ID Status Reason Start Date Expiration Date Visits Requested Visits Authorized [id number] Pending Review PCP Requested Referral 08/04/2022 08/04/2023 1 1 Specialty Diagnoses / Procedures Referred By Contac t Referred To Contact Diagnoses Depression, unspecified depression type Procedures PROVIDER ORDERED FOLLOW UP OFFICE/OUTPATIENT [facility] 60-[place] [address] [place] [address] Referral ID Status Reason Start Date Expiration Date Visits Requested Visits Authorized [id number] Authorized PCP Requested Referral 11/28/2022 09/02/2023 1 1 Specialty Diagnoses / Procedures Referred By Contac t Referred To Contact [facility] Diagnoses Parkinsonism, unspecified Parkinsonism type (HCC) Procedures CONSULT TO TRIMMER LOADER OCCUPATIONAL THERAPY EVAL HIGH COMPLEX 60 MINS Gary Ruiz, [facility] [address] [place] [address] [facility] [address] [place] [address] Referral ID Status Reason Start Date Expiration Date Visits Requested Visits Authorized [id number] Authorized PCP Requested Referral Auto-Generate d Referral 12/12/2022 12/12/2023 99 99 Specialty Diagnoses / Procedures Referred By Contac t Referred To Contact [facility] Diagnoses Parkinsonism, unspecified Parkinsonism type (HCC) Procedures CONSULT TO PHYSICAL THERAPY PHYSICAL THERAPY EVALUATION HIGH COMPLEX 45 MINS Gary Ruiz, [facility] [address] [place] [address] [address] Referral ID Status Reason Start Date Expiration Date Visits Requested Visits Authorized [id number] Authorized PCP Requested Referral Auto-Generate d Referral 12/12/2022 12/12/2023 99 99 Advance Directives No Advanced Directives Records FoundDocuments on File Type Date Recorded 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 Expl 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 ACP-Advance Directive ACP-Power of Bioinformatics Associate Latest Code Status on File Code Status Date Activated Date Inactivated Comments Full Code 04/17/2018 6:13 AM 04/17/2018 1:26 PM Documents on File Type Date Recorded 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 Vault Maker Expl anation ACP-Advance Directive ACP-Power of Bioinformatics Associate Latest Code Status on File Code Status Date Activated Date Inactivated Comments Full Code 05/19/2021 6:48 AM Full Code 04/17/2018 6:13 AM 04/17/2018 1:26 PM Documents on File Type Date Recorded 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 Vault Maker Expl anation Advance Directives and Living Will Documents on File Type Date Recorded 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 Vault Maker Expl anation Advance Directives and Living Will Documents on File Type Date Recorded 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 Vault Maker Expl anation Advance Directives and Livin g Will 11/01/2021 10:44 AM Advance Directive Response Recorded Date/ Time Living Will Yes January 28, 2022 2:22am Power of Bioinformatics Associate Yes January 28 2:22am Advance Directive Response Recorded Date/ Time Name of Medical Power of Bioinformatics Associate BRENNEN GRIFFITH ( ) January 28, 2022 2:22am Living Will Yes January 28, 2022 2:22am Power of Bioinformatics Associate Yes January 28 2:22am Advance Directive Response Recorded Date/ Time Living Will Yes January 28, 2022 1:22am Power of Bioinformatics Associate Yes January 28 1:22am Advance Directive Response Recorded Date/ Time Name of Medical Power of Bioinformatics Associate February 11, 2023 12:56pm Living Will Yes February 11, 2023 12:56pm Power of Bioinformatics Associate Yes February 11 12:56pm Advance Directive Response Recorded Date/ Time Living Will Yes February 11, 2023 12:56pm Power of Bioinformatics Associate Yes February 11 12:56pm Advance Directive Response Recorded Date/ Time Living Will Yes February 11, 2023 11:56am Power of Bioinformatics Associate Yes February 11 11:56am Advance Directive Response Recorded Date/ Time Living Will Yes February 11, 2023 12:56pm Power of Bioinformatics Associate Yes February 11 12:56pm Living Will Yes October 12, 12:40pm Power of Bioinformatics Associate Yes October 12, 2024 12:40pm Name of Medical Power of Bioinformatics Associate brennen griffith October 12, 2024 12:40pm Living Will Yes December 05 6:16pm Power of Bioinformatics Associate Yes December 05, 2024 6:16pm Name of Medical Power of Bioinformatics Associate BRENNEN GRIFFITH December 05, 2024 6:16pm Advance Directive Response Recorded Date/ Time Living Will Yes February 11, 2023 12:56pm Do you have a Healthcare Power of Bioinformatics Associate? Yes February 11, 2023 12:56pm Living Will Yes December 05 6:16pm Do you have a Healthcare Power of Bioinformatics Associate? Yes December 05, 2024 6:16pm Name of Medical Power of Bioinformatics Associate BRENNEN GRIFFITH December 05, 2024 6:16pm Living Will No February 14, 2025 9:21pm Do you have a Healthcare Power of Bioinformatics Associate? No February 14, 2025 9:21pm Advance Directive Response Recorded Date/ Time Living Will Yes February 11, 2023 12:56pm Do you have a Healthcare Power of Bioinformatics Associate? Yes February 11, 2023 12:56pm Living Will No February 14, 2025 9:21pm Do you have a Healthcare Power of Bioinformatics Associate? No February 14, 2025 9:21pm Advance Directive Response Recorded Date/ Time Living Will Yes February 11, 2023 12:56pm Do you have a Healthcare Power of Bioinformatics Associate? Yes February 11, 2023 12:56pm Living Will No February 14, 2025 9:21pm Do you have a Healthcare Power of Bioinformatics Associate? No February 14, 2025 9:21pm Do you have a Healthcare Power of Bioinformatics Associate? Yes April 09, 2025 11:28am Healthcare Agents on File Name Relationship Healthcare Agent Relationshi p Communication Brennen Griffith Spouse First Alternate Health Care Agent Advance Directive Response Recorded Date/ Time Living Will No February 14, 2025 9:21pm Do you have a Healthcare Power of Bioinformatics Associate? No February 14, 2025 9:21pm Do you have a Healthcare Power of Bioinformatics Associate? Yes April 09, 2025 11:28am Do you have a Healthcare Power of Bioinformatics Associate? No May 11, 2025 5:51pm Advance Directive Response Recorded Date/ Time Living Will No February 14, 2025 9:21pm Do you have a Healthcare Power of Bioinformatics Associate? No February 14, 2025 9:21pm Do you have a Healthcare Power of Bioinformatics Associate? Yes April 09, 2025 11:28am Do you have a Healthcare Power of Bioinformatics Associate? No May 11, 2025 5:51pm Do you have a Healthcare Power of Bioinformatics Associate? Yes June 08, 2025 6:06pm Advance Directive Response Recorded Date/ Time Living Will No February 14, 2025 9:21pm Do you have a Healthcare Power of Bioinformatics Associate? No February 14, 2025 9:21pm Do you have a Healthcare Power of Bioinformatics Associate? Yes April 09, 2025 11:28am Do you have a Healthcare Power of Bioinformatics Associate? No May 11, 2025 5:51pm Do you have a Healthcare Power of Bioinformatics Associate? Yes June 08, 2025 11:41pm Advance Directive Response Recorded Date/ Time Living Will No February 14, 2025 9:21pm Do you have a Healthcare Power of Bioinformatics Associate? No February 14, 2025 9:21pm Do you have a Healthcare Power of Bioinformatics Associate? Yes April 09, 2025 11:28am Do you have a Healthcare Power of Bioinformatics Associate? No May 11, 2025 5:51pm Do you have a Healthcare Power of Bioinformatics Associate? No June 12, 2025 10:49am Do you have a Healthcare Power of Bioinformatics Associate? Yes June 08, 2025 11:41pm Advance Directive Response Recorded Date/ Time Do you have a Healthcare Power of Bioinformatics Associate? Yes April 09, 2025 11:28am Do you have a Healthcare Power of Bioinformatics Associate? No May 11, 2025 5:51pm Do you have a Healthcare Power of Bioinformatics Associate? No June 12, 2025 10:49am Do you have a Healthcare Power of Bioinformatics Associate? Yes June 19, 2025 7:26pm Name of Medical Power of Bioinformatics Associate Brennen Griffith June 19, 2025 7:26pm Do you have a Healthcare Power of Bioinformatics Associate? Yes June 08, 2025 11:41pm Advance Directive Response Recorded Date/ Time Living Will Yes February 11, 2023 12:56pm Do you have a Healthcare Power of Bioinformatics Associate? Yes February 11, 2023 12:56pm Do you have a Healthcare Power of Bioinformatics Associate? Yes April 09, 2025 11:28am Do you have a Healthcare Power of Bioinformatics Associate? No May 11, 2025 5:51pm Do you have a Healthcare Power of Bioinformatics Associate? No June 12, 2025 10:49am Do you have a Healthcare Power of Bioinformatics Associate? Yes June 19, 2025 7:26pm Name of Medical Power of Bioinformatics Associate Brennen Griffith June 19, 2025 7:26pm Do you have a Healthcare Power of Bioinformatics Associate? Yes June 08, 2025 11:41pm Advance Directive Response Recorded Date/ Time Living Will Yes February 11, 2023 12:56pm Do you have a Healthcare Pow er of Bioinformatics Associate? Yes February 11, 2023 12:56pm Do you have a Healthcare Pow er of Bioinformatics Associate? Yes April 09, 2025 11:28am Do you have a Healthcare Pow er of Bioinformatics Associate? No May 11, 2025 5:51pm Do you have a Healthcare Pow er of Bioinformatics Associate? No June 12, 2025 10:49am Do you have a Healthcare Pow er of Bioinformatics Associate? Yes June 19, 2025 7:26pm Name of Medical Power of Bioinformatics Associate Brennen Griffith June 19, 2025 7:26pm Do you have a Healthcare Pow er of Bioinformatics Associate? Yes June 08, 2025 11:41pm Do you have a Healthcare Pow er of Bioinformatics Associate? Yes July 07, 2025 4:05am Name of Medical Power of Bioinformatics Associate sabrina cain July 07, 2025 4:05am Summary Purpose Family History No Family History [...] SOB 4 M FU 2 ORDERING ERNESTINA - EORDER FROM DR SANTO Reason for Visit Diplopia [...] 14, 2025 12:30pm Chief Complaint Admit Date head injury February 14, 2025 9:1 0pm 6 wk FU March 20, 2025 3:22pm Moderate persistent asthma, uncomplicate d March 24, 2025 6:38pm head injury April 09, 2025 11:18 am DYSPHAGIA, PARKINSONS DISEASE,Dysphonia May 09, 2025 12:48pm hypoglycemic May 11, 2025 5:47 pm DYSPHAGIA, CVA. RX HERE May 14, 2025 12:30pm SYNCOPE AND COLLAPSE, LEFT POSTERIOR SCA LP June 08, 2025 9:40pm Reason for Visit Admit Date Dysphagia March 20, 2025 3:22pm Abnormality of gait and mobility March 3:22pm Dementia March 20, 2025 3:22pm Parkinson's disease March 20, 2025 3:22pm Polyneuropathy March 20, 2025 3:22pm Acute sinusitis June 08, 2025 9:40 pm Closed head injury June 08, 2025 9:40 pm Dehydration June 08, 2025 9:40 pm History of dementia June 08, 2025 9:40 pm History of Parkinson's disease May 9:40pm Obesity (BMI 30-39.9) June 08, 2025 9: 40pm Syncope June 08, 2025 9:40 pm Syncope and collapse June 08, 2025 9:4 0pm Chief Complaint Admit Date head injury February 14, 2025 9:1 0pm 6 wk FU March 20, 2025 3:22pm Moderate persistent asthma, uncomplicate d March 24, 2025 6:38pm head injury April 09, 2025 11:18 am DYSPHAGIA, PARKINSONS DISEASE,Dysphonia May 09, 2025 12:48pm hypoglycemic May 11, 2025 5:47 pm DYSPHAGIA, CVA. RX HERE May 14, 2025 12:30pm SYNCOPE AND COLLAPSE, LEFT POSTERIOR SCA LP June 08, 2025 9:40pm SYNCOPE AND COLLAPSE, LEFT POSTERIOR SCA LP June 09, 2025 4:11pm FALL June 12, 2025 10:3 8am Chief Complaint Admit Date 6 wk FU March 20, 2025 3:22pm Moderate persistent asthma, uncomplicate d March 24, 2025 6:38pm head injury April 09, 2025 11:18 am DYSPHAGIA, PARKINSONS DISEASE,Dysphonia May 09, 2025 12:48pm hypoglycemic May 11, 2025 5:47 pm DYSPHAGIA, CVA. RX HERE May 14, 2025 12:30pm SYNCOPE AND COLLAPSE, LEFT POSTERIOR SCA LP June 08, 2025 9:40pm SYNCOPE AND COLLAPSE, LEFT POSTERIOR SCA LP June 09, 2025 4:11pm FALL June 12, 2025 10:3 8am fall June 19, 2025 7:16 pm Reason for Visit Admit Date Dysphagia March 20, 2025 3:22pm Abnormality of gait and mobility March 3:22pm Dementia March 20, 2025 3:22pm Parkinson's disease March 20, 2025 3:22pm Polyneuropathy March 20, 2025 3:22pm Acute sinusitis June 08, 2025 9:40 pm Dehydration June 08, 2025 9:40 pm Syncope and collapse June 08, 2025 9:4 0pm Closed head injury June 08, 2025 9:40 pm History of dementia June 08, 2025 9:40 pm History of Parkinson's disease May 9:40pm Obesity (BMI 30-39.9) June 08, 2025 9: 40pm Syncope June 08, 2025 9:40 pm Chief Complaint Admit Date 6 wk FU March 20, 2025 3:22pm Moderate persistent asthma, uncomplicate d March 24, 2025 6:38pm head injury April 09, 2025 11:18 am DYSPHAGIA, PARKINSONS DISEASE,Dysphonia May 09, 2025 12:48pm hypoglycemic May 11, 2025 5:47 pm DYSPHAGIA, CVA. RX HERE May 14, 2025 12:30pm SYNCOPE AND COLLAPSE, LEFT POSTERIOR SCA LP June 08, 2025 9:40pm SYNCOPE AND COLLAPSE, LEFT POSTERIOR SCA LP June 09, 2025 4:11pm FALL June 12, 2025 10:3 8am fall June 19, 2025 7:16 pm Dysphagia June 24, 2025 2:2 0pm Reason for Visit Admit Date Dysphagia March 20, 2025 3:22pm Abnormality of gait and mobility March 3:22pm Dementia March 20, 2025 3:22pm Parkinson's disease March 20, 2025 3:22pm Polyneuropathy March 20, 2025 3:22pm Acute sinusitis June 08, 2025 9:40 pm Dehydration June 08, 2025 9:40 pm Syncope and collapse June 08, 2025 9:4 0pm Closed head injury June 08, 2025 9:40 pm History of dementia June 08, 2025 9:40 pm History of Parkinson's disease May 9:40pm Obesity (BMI 30-39.9) June 08, 2025 9: 40pm Syncope June 08, 2025 9:40 pm Dysphagia June 24, 2025 2:2 0pm Chief Complaint Admit Date 6 wk FU March 20, 2025 3:22pm Moderate persistent asthma, uncomplicate d March 24, 2025 6:38pm head injury April 09, 2025 11:18 am DYSPHAGIA, PARKINSONS DISEASE,Dysphonia May 09, 2025 12:48pm hypoglycemic May 11, 2025 5:47 pm DYSPHAGIA, CVA. RX HERE May 14, 2025 12:30pm SYNCOPE AND COLLAPSE, LEFT POSTERIOR SCA LP June 08, 2025 9:40pm SYNCOPE AND COLLAPSE, LEFT POSTERIOR SCA LP June 09, 2025 4:11pm FALL June 12, 2025 10:3 8am fall June 19, 2025 7:16 pm Dysphagia June 24, 2025 2:2 0pm 3 M FU June 26, 2025 1:0 5pm Reason for Visit Admit Date Dysphagia March 20, 2025 3:22pm Abnormality of gait and mobility March 3:22pm Dementia March 20, 2025 3:22pm Parkinson's disease March 20, 2025 3:22pm Polyneuropathy March 20, 2025 3:22pm Acute sinusitis June 08, 2025 9:40 pm Dehydration June 08, 2025 9:40 pm Syncope and collapse June 08, 2025 9:4 0pm Closed head injury June 08, 2025 9:40 pm History of dementia June 08, 2025 9:40 pm History of Parkinson's disease May 9:40pm Obesity (BMI 30-39.9) June 08, 2025 9: 40pm Syncope June 08, 2025 9:40 pm Dysphagia June 24, 2025 2:2 0pm Fatigue June 26, 2025 1:0 5pm Chief Complaint Admit Date 6 wk FU March 20, 2025 3:22pm Moderate persistent asthma, uncomplicate d March 24, 2025 6:38pm head injury April 09, 2025 11:18 am DYSPHAGIA, PARKINSONS DISEASE,Dysphonia May 09, 2025 12:48pm hypoglycemic May 11, 2025 5:47 pm DYSPHAGIA, CVA. RX HERE May 14, 2025 12:30pm SYNCOPE AND COLLAPSE, LEFT POSTERIOR SCA LP June 08, 2025 9:40pm SYNCOPE AND COLLAPSE, LEFT POSTERIOR SCA LP June 09, 2025 4:11pm FALL June 12, 2025 10:3 8am fall June 19, 2025 7:16 pm Dysphagia June 24, 2025 2:2 0pm 3 M FU June 26, 2025 1:0 5pm 1 Y FU June 27, 2025 1:2 2pm Reason for Visit Admit Date Dysphagia March 20, 2025 3:22pm Abnormality of gait and mobility March 3:22pm Dementia March 20, 2025 3:22pm Parkinson's disease March 20, 2025 3:22pm Polyneuropathy March 20, 2025 3:22pm Acute sinusitis June 08, 2025 9:40 pm Dehydration June 08, 2025 9:40 pm Syncope and collapse June 08, 2025 9:4 0pm Closed head injury June 08, 2025 9:40 pm History of dementia June 08, 2025 9:40 pm History of Parkinson's disease May 9:40pm Obesity (BMI 30-39.9) June 08, 2025 9: 40pm Syncope June 08, 2025 9:40 pm Dysphagia June 24, 2025 2:2 0pm Fatigue June 26, 2025 1:0 5pm Essential (primary) hypertension June 27, 2025 1:22pm HLD (hyperlipidemia) June 27, 2025 1: 22pm Paroxysmal atrial fibrillation June 1:22pm Chief Complaint Admit Date 6 wk FU March 20, 2025 3:22pm Moderate persistent asthma, uncomplicate d March 24, 2025 6:38pm head injury April 09, 2025 11:18 am DYSPHAGIA, PARKINSONS DISEASE,Dysphonia May 09, 2025 12:48pm hypoglycemic May 11, 2025 5:47 pm DYSPHAGIA, CVA. RX HERE May 14, 2025 12:30pm SYNCOPE AND COLLAPSE, LEFT POSTERIOR SCA LP June 08, 2025 9:40pm SYNCOPE AND COLLAPSE, LEFT POSTERIOR SCA LP June 09, 2025 4:11pm FALL June 12, 2025 10:3 8am fall June 19, 2025 7:16 pm Dysphagia June 24, 2025 2:2 0pm 3 M FU June 26, 2025 1:0 5pm 1 Y FU June 27, 2025 1:2 2pm fall July 07, 2025 3: 54am Reason for Visit Admit Date Dysphagia March 20, 2025 3:22pm Abnormality of gait and mobility March 3:22pm Dementia March 20, 2025 3:22pm Parkinson's disease March 20, 2025 3:22pm Polyneuropathy March 20, 2025 3:22pm Acute sinusitis June 08, 2025 9:40 pm Dehydration June 08, 2025 9:40 pm Syncope and collapse June 08, 2025 9:4 0pm Closed head injury June 08, 2025 9:40 pm History of dementia June 08, 2025 9:40 pm History of Parkinson's disease May 9:40pm Obesity (BMI 30-39.9) June 08, 2025 9: 40pm Syncope June 08, 2025 9:40 pm Dysphagia June 24, 2025 2:2 0pm Dysphagia June 26, 2025 1:0 5pm Fatigue June 26, 2025 1:0 5pm Abnormality of gait and mobility June 26, 2025 1:05pm Dementia June 26, 2025 1:0 5pm Parkinson's disease June 26, 2025 1:0 5pm Polyneuropathy June 26, 2025 1:0 5pm Sinus tachycardia June 27, 2025 1:2 2pm Essential (primary) hypertension June 27, 2025 1:22pm HLD (hyperlipidemia) June 27, 2025 1: 22pm Paroxysmal atrial fibrillation June 1:22pm Additional Source Comments Source Comments (unrecognize d section and content) In the event this informatio n is protected by the Federal Confidentiality of Alcohol and Drug Abuse Patient Records regulations: The Federal rules restrict any use of the information to criminally investigate or prosecute any alcohol or drug abuse patient.[facility] the event this information is protected by the Federal Confidentiality of Alcohol and Drug Abuse Patient Records regulations: The Federal rules restrict any use of the information to criminally investigate or prosecute any alcohol or drug abuse patient.[facility] the event this information is protected by the Federal Confidentiality of Alcohol and Drug Abuse Patient Records regulations: The Federal rules restrict any use of the information to criminally investigate or prosecute any alcohol or drug abuse patient.[facility] the event this information is protected by the Federal Confidentiality of Alcohol and Drug Abuse Patient Records regulations: The Federal rules restrict any use of the information to criminally investigate or prosecute any alcohol or drug abuse patient.[facility] the event this information is protected by the Federal Confidentiality of Alcohol and Drug Abuse Patient Records regulations: The Federal rules restrict any use of the information to criminally investigate or prosecute any alcohol or drug abuse patient.[facility] the event this information is protected by the Federal Confidentiality of Alcohol and Drug Abuse Patient Records regulations: The Federal rules restrict any use of the information to criminally investigate or prosecute any alcohol or drug abuse patient.[facility] HospitalIn the event this information is protected by the Federal Confidentiality of Alcohol and Drug Abuse Patient Records regulations: The Federal rules restrict any use of the information to criminally investigate or prosecute any alcohol or drug abuse patient.[facility] Hospital[facility] the event this information is protected by the Federal Confidentiality of Alcohol and Drug Abuse Patient Records regulations: The Federal rules restrict any use of the information to criminally investigate or prosecute any alcohol or drug abuse patient.[facility] HospitalIn the event this information is protected by the Federal Confidentiality of Alcohol and Drug Abuse Patient Records regulations: The Federal rules restrict any use of the information to criminally investigate or prosecute any alcohol or drug abuse patient.[facility] HospitalIn the event this information is protected by the Federal Confidentiality of Alcohol and Drug Abuse Patient Records regulations: The Federal rules restrict any use of the information to criminally investigate or prosecute any alcohol or drug abuse patient.[facility] HospitalIn the event this information is protected by the Federal Confidentiality of Alcohol and Drug Abuse Patient Records regulations: The Federal rules restrict any use of the information to criminally investigate or prosecute any alcohol or drug abuse patient.[facility] HospitalIn the event this information is protected by the Federal Confidentiality of Alcohol and Drug Abuse Patient Records regulations: The Federal rules restrict any use of the information to criminally investigate or prosecute any alcohol or drug abuse patient.[facility] HospitalIn the event this information is protected by the Federal Confidentiality of Alcohol and Drug Abuse Patient Records regulations: The Federal rules restrict any use of the information to criminally investigate or prosecute any alcohol or drug abuse patient.[facility] HospitalIn the event this information is protected by the Federal Confidentiality of Alcohol and Drug Abuse Patient Records regulations: The Federal rules restrict any use of the information to criminally investigate or prosecute any alcohol or drug abuse patient.[facility] HospitalIn the event this information is protected by the Federal Confidentiality of Alcohol and Drug Abuse Patient Records regulations: The Federal rules restrict any use of the information to criminally investigate or prosecute any alcohol or drug abuse patient.[facility] HospitalIn the event this information is protected by the Federal Confidentiality of Alcohol and Drug Abuse Patient Records regulations: The Federal rules restrict any use of the information to criminally investigate or prosecute any alcohol or drug abuse patient.[facility] HospitalIn the event this information is protected by the Federal Confidentiality of Alcohol and Drug Abuse Patient Records regulations: The Federal rules restrict any use of the information to criminally investigate or prosecute any alcohol or drug abuse patient.[facility] HospitalIn the event this information is protected by the Federal Confidentiality of Alcohol and Drug Abuse Patient Records regulations: The Federal rules restrict any use of the information to criminally investigate or prosecute any alcohol or drug abuse patient.[facility] HospitalIn the event this information is protected by the Federal Confidentiality of Alcohol and Drug Abuse Patient Records regulations: The Federal rules restrict any use of the information to criminally investigate or prosecute any alcohol or drug abuse patient.[facility] HospitalIn the event this information is protected by the Federal Confidentiality of Alcohol and Drug Abuse Patient Records regulations: The Federal rules restrict any use of the information to criminally investigate or prosecute any alcohol or drug abuse patient.[facility] Reason for Visit (unrecogniz ed section and content) Reason Comments Parkinsonism, unspecified Parkinsonism t ype (HCC) Specialty Diagnoses / Procedures Referred By Contac t Referred To Contact Diagnoses Parkinsonism, unspecified Parkinsonism type ([facility]) Procedures PROVIDER ORDERED FOLLOW UP OFFICE/OUTPATIENT [facility] 60-74 MINUTES Jaylyn Nieves MD [address] [facility] [address] [place] [address] Referral ID Status Reason Start Date Expiration Date V isits Requested Visits Authorized [id number] Closed PCP Requested Referral 11/03/2022 08/04/2023 1 1 Status Reason Specialty Diagnoses / Procedures Re ferred By Contact Referred To Contact Open Cardiology Diagnoses Pre-op testing Abnormal EKG Shortness of breath Procedures ECHO Pharmacological Stress Test Raeann Holland, [facility] [address] [facility] [address] [place] [address] Reason Comments Consult Ref by: PATRICIA MCGOWAN 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,essential ([facility] interest - saw us on the website), Tremors Dx; ET approx 1 year Specialty Diagnoses / Procedures Referred By Contac t Referred To Contact Neurology Diagnoses Tremor, essential Patricia Mcgowan MD [address] [place] [address] Barb Morton MD [address] [place] [address] Referral ID Status Reason Start Date Expiration Date Visits Re quested Visits Authorized [id number] Closed 09/27/2021 09/27/2022 1 1 Reason Comments Physical Therapy Neuro Specialty Diagnoses / Procedures Referred By Conteduardo t Referred To Contact Rehabilitation Diagnoses Tremor Barb Morton MD [address] [facility] [address] [place] [address] [facility] [place] [address] [place] [address] Referral ID Status Reason Start Date Expiration Date V isits Requested Visits Authorized [id number] Authorized 10/05/2021 10/05/2022 1 199 Reason Onset Date Comments Medication Refill 11/05/2021 Reason Onset Date Comments Medication Refill 11/09/2021 Reason Comments Follow Up Parkinson's Reason Comments Upcoming Appointment Pre-rooming phone c all Reason Comments Speech Evaluation Specialty Diagnoses / Procedures Referred By Michel t Referred To Contact Speech-Language Pathologist / SPEECH THERAPY Diagnoses PD [facility] Procedures [facility] Jaylyn Nieves MD [address] [address] Amaya Deleon, [facility]NA[facility] [address] [place] [address] Referral ID Status Reason Start Date Expiration Date V isits Requested Visits Authorized [id number] Authorized 03/29/2022 06/27/2022 99 99 Reason Comments PT Eval Patient Education Specialty Diagnoses / Procedures Referred By Contac t Referred To Contact Physical Therapy / PHYSICAL THERAPY Diagnoses PD Clinic Procedures [facility] Jaylyn Nieves MD [address] [address] [place] Med[place], [place], DPT [address] [place] [address] Referral ID Status Reason Start Date Expiration Date V isits Requested Visits Authorized [id number] Authorized 03/29/2022 06/27/2022 99 99 Specialty Diagnoses / Procedures Referred By Contac t Referred To Contact Neurology / NEUROLOGICAL [facility] Diagnoses Parkinsonism, unspecified Parkinsonism type (HCC) Procedures CONS[facility] TO [facility] OFFICE/OUTPATIENT [facility] 60-74 MINUTES Jaylyn Nieves MD [address] [address] [facility] [address] [place] [address] Referral ID Status Reason Start Date Expiration Date V isits Requested Visits Authorized [id number] Closed PCP Requested Referral 03/17/2022 03/17/2023 1 1 Reason Onset Date Comments Refill Request 05/18/2022 Reason Comments Appointment Earlier appointment request d/t worsening symptoms Reason Comments Follow Up Referral ID Status Reason Start Date Expiration Date V isits Requested Visits Authorized [id number] Closed PCP Requested Referral 03/17/2022 06/15/2022 1 1 Reason Comments Physical Therapy Specialty Diagnoses / Procedures Referred By Contac t Referred To Contact [facility] Diagnoses Parkinsonism, unspecified Parkinsonism type (HCC) Procedures CONSULT TO PHYSICAL THERAPY PHYSICAL THERAPY EVALUATION HIGH COMPLEX 45 MINS Jaylyn Nieves MD [address] [address] [facility] [address] [address] Referral ID Status Reason Start Date Expiration Date Visits Requested Visits Authorized [id number] Authorized PCP Requested Referral Auto-Generate d Referral 08/04/2022 08/04/2023 99 99 Reason Comments New Patient Specialty Diagnoses / Procedures Referred By Contac t Referred To Contact Diagnoses Parkinsonism, unspecified Parkinsonism type (HCC) Depression, unspecified depression type Procedures CONSULT TO PSYCHIATRY OFFICE/OUTPATIENT [facility] 60-74 MINUTES Jaylyn Nieves MD [address] [address] Referral ID Status Reason Start Date Expiration Date Visits Requested Visits Authorized [id number] Pending Review PCP Requested Referral 08/04/2022 08/04/2023 [...] section and content) DATE CREATED AUTHOR 05/13/2021 [facility] DATE CREATED AUTHOR AUTHOR'S ORGANIZ ATION 05/20/2021 [facility] DATE CREATED AUTHOR AUTHOR'S ORGANIZ ATION 12/22/2021 [facility] DATE CREATED AUTHOR AUTHOR'S ORGANIZ ATION 02/18/2023 [facility] DATE CREATED AUTHOR AUTHOR'S ORGANIZ ATION 02/19/2023 [facility] DATE CREATED AUTHOR AUTHOR'S ORGANIZ ATION 04/05/2025 [facility] DATE CREATED AUTHOR AUTHOR'S ORGANIZ ATION 04/18/2025 [facility] DATE CREATED AUTHOR AUTHOR'S ORGANIZ ATION 07/10/2025 [facility] Scheduled Active and Recently Administ ered [...] % 100 mL IVPB 3,000 mg, Intravenous, ROOM SERVICE RUNNER TO O.R., 1 dose, On Mon05/19/21 at [...] Cielo Valverde RN) lidocaine-EPINEPHrine (Xylocaine W/EPI) 1 %-1:[id number] injection 10 mL (COMPLETED) 10 mL, Infiltration, [...] Care Teams (unrecognized sec tion and content) Health Practice Manager Relationship Specialty Start Date End Date Patricia Mcgowan MD [address] [place], [place] [address] PCP - General Family Medicine 10/28/21 Health Practice Manager Relationship Specialty Start Date End Date Patricia Mcgowan MD [address] [place], [place] [id number] PCP - General Family Medicine 10/28/21 Health Practice Manager Relationship Specialty Start Date End Date Patricia Mcgowan MD [address] [place] [address] PCP - General Family Medicine 10/28/21 Health Practice Manager Relationship Specialty Start Date End Date Patricia Mcgowan MD [address] [place] [address] PCP - General Family Medicine 10/28/21 Health Practice Manager Relationship Specialty Start Date End Date Patricia Mcgowan MD [address] [place] [address] PCP - General Family Medicine 10/28/21 Health Practice Manager Relationship Specialty Start Date End Date Patricia Mcgowan MD [address] [place] [address] PCP - General Family Medicine 10/28/21 Health Practice Manager Relationship Specialty Start Date End Date Patricia Mcgowan MD [address] [place] [address] PCP - General Family Medicine 10/28/21 Health Practice Manager Relationship Specialty Start Date End Date Ja Cooley [address] [place] [address] PCP - General Family Practice 03/17/22 Health Practice Manager Relationship Specialty Start Date End Date Ja Cooley [address] [place] [address] PCP - General Family Practice 03/17/22 Health Practice Manager Relationship Specialty Start Date End Date Ja Cooley [address] [place] [address] PCP - General Family Practice 03/17/22 Health Practice Manager Relationship Specialty Start Date End Date Ja Cooley [address] [place] [address] PCP - General Family Practice 03/17/22 Health Practice Manager Relationship Specialty Start Date End Date Ja Cooley [address] [place] [address] PCP - General Family Practice 03/17/22 Health Practice Manager Relationship Specialty Start Date End Date Ja Cooley [address] [place] [address] PCP - General Family Practice 03/17/22 Health Practice Manager Relationship Specialty Start Date End Date Ja Cooley [address] [place] [address] PCP - General Family Practice 03/17/22 Health Practice Manager Relationship Specialty Start Date End Date Ja Cooley [address] [facility] [address] [place] [address] PCP - General Family Practice 03/17/22 Health Practice Manager Relationship Specialty Start Date End Date Ja Cooley [address] [facility] [address] [place] [address] PCP - General Family Practice 03/17/22 Health Practice Manager Relationship Specialty Start Date End Date Ja Cooley [address] [facility] [address] [place] [address] PCP - General Family Medicine 03/17/22 Health Practice Manager Relationship Specialty Start Date End Date Ja Cooley [address] [place] [address] PCP - General Family Medicine 03/17/22 Health Practice Manager Relationship Specialty Start Date End Date Ja Cooley [address] [place] [address] PCP - General Family Medicine 03/17/22 Erika May, [facility] [address] [place] [address] Specialty Environmental Programs Manager Neurology 09/07/22 Health Practice Manager Relationship Specialty Start Date End Date Ja Cooley [address] [facility] [address] [place] [address] PCP - General Family Medicine 03/17/22 Erika May, [facility] [address] [place] [address] Specialty Environmental Programs Manager Neurology 09/07/22 Health Practice Manager Relationship Specialty Start Date End Date Ja Cooley [address] [facility] [address] [place] [address] PCP - General Family Medicine 03/17/22 Erika May, [facility] [address] [facility] [address] Specialty Environmental Programs Manager Neurology 09/07/22 Health Practice Manager Relationship Specialty Start Date End Date Ja Cooley [address] [facility] [address] [place] [address] PCP - General Family Medicine 03/17/22 Erika May, [facility] [address] [place] [address] Specialty Environmental Programs Manager Neurology 09/07/22 Tatiana Rodas, [facility] [address] [place] [address] Specialty Environmental Programs Manager Neurology 12/05/22 Health Practice Manager Relationship Specialty Start Date End Date Ja Cooley [address] [facility] [address] [place] [address] PCP - General Family Medicine 03/17/22 Erika May, [facility] [address] [place] [address] Specialty Environmental Programs Manager Neurology 09/07/22 Tatiana Rodas, [facility] [address] [place] [address] Specialty Environmental Programs Manager Neurology 12/05/22 Health Practice Manager Relationship Specialty Start Date End Date Ja Cooley [address] [facility] [address] [place] [address] PCP - General Family Medicine 03/17/22 Erika May, [facility] [address] [place] [address] Specialty Environmental Programs Manager Neurology 09/07/22 Tatiana Rodas, [facility] [address] [place] [address] Specialty Environmental Programs Manager Neurology 12/05/22 Team Status: Active Member Role Status Dates Dr. Patricia Mcgowan MD Family Provider Active Dr. Ja Cooley MD Primary Care Provider Active Team Status: Inactive Member Role Status Dates Dr. Ja Cooley MD Primary Care Provider Active Dr. Natasha Gregory MD Attending Provider, Referring Provider Active Dr. Silverio Johnson MD Other Provider Active Team Status: Inactive Member Role Status Dates Dr. Ja Cooley MD Primary Care Provider, Referr ing Provider Active Dr. Natasha Gregory MD Attending Provider Active Health Practice Manager Relationship Specialty Start Date End Date Ja Cooley [address] [facility] [address] [place] [address] PCP - General Family Medicine 03/17/22 Erika May, [facility] [address] [place] [address] Specialty Environmental Programs Manager Neurology 09/07/22 Tatiana Rodas [facility] [address] [place] [address] Specialty Environmental Programs Manager Neurology 12/05/22 Team Status: Inactive Member Role Status Dates Dr. Ja Cooley MD Primary Care Provider Active Dr. Osman Farooq MD Emergency Provider Active Health Practice Manager Relationship Specialty Start Date End Date Ja Cooley [address] [place] [address] PCP - General Family Medicine 03/17/22 Erika May, [facility] [address] [place] [address] Specialty Environmental Programs Manager Neurology 09/07/22 Tatiana Rodas, [facility] [address] [place], [place] [address] Specialty Environmental Programs Manager Neurology 12/05/22 Team Status: Inactive Member Role Status Dates Dr. Ja Cooley MD Primary Care Provider Active Dr. Osman Farooq MD Attending Provider, Emergency Provider Active Team Status: Inactive Member Role Status Dates Dr. Ja Cooley MD Primary Care Pr ovider, Attending Provider, Referring Provider Active Team Status: Inactive Member Role Status Dates Dr. Ja Cooley MD Primary Care Provider, Referr ing Provider Active Christel Bae DEPARTMENT CHAIRPERSON, DEPARTMENT CHAIRPERSON-C Attending Provider Active Team Status: Inactive Member Role Status Dates Dr. Ja Cooley MD Primary Care Provider, Referr ing Provider Active Dr. Vick Santo MD Attending Provider Active Team Status: Active Member Role Status Dates Dr. Ja Cooley MD Primary Care Pr ovider, Attending Provider, Referring Provider Active Team Status: Inactive Member Role Status Dates Dr. Ja Cooley MD Primary Care Provider Active Dr. Natasha Gregory MD Attending Provider Active Team Status: Inactive Member Role Status Dates Dr. Ja Cooley MD Primary Care Provider Active Dr. Vick Santo MD Attending Provider Active Team Status: Inactive Member Role Status Dates Dr. Ja Cooley MD Primary Care Provider Active Dr. Vick Santo MD Attending Provider, Referring Provider Active Team Status: Active Member Role Status Dates Dr. Ja Cooley MD Primary Care Provider Active Dr. Vick Santo MD Referring Provider, Other Pro vider Active Dr. Sofía Luu MD Attending Provider Active Team Status: Inactive Member Role Status Dates Dr. Ja Cooley MD Primary Care Provider Active Terrie Watt MD Attending Provider, Referring Provide r Active Team Status: Active Member Role Status Dates Dr. Ja Cooley MD Primary Care Provider Active Dr. Vick Santo MD Attending Provider Active Team Status: Inactive Member Role Status Dates Dr. Ja Cooley MD Primary Care Provider Active Dr. Patricia Mcgowan MD Attending Provider, Referring P romattder Active Team Status: Inactive Member Role Status Dates Dr. Ja Cooley MD Primary Care Provider Active Dr. Jose Perez MD Attending Provider, Referrin g Provider Active Team Status: Inactive Member Role Status Dates Dr. Ja Cooley MD Primary Care Provider Active Dr. Natasha Gregory MD Attending Provider, Referring Provider Active Team Status: Inactive Member Role Status Dates Dr. Ja Cooley MD Primary Care Provider Active Dr. Natasha Gregory MD Attending Provider, Referring Provider Active Dr. Vick Santo MD Other Provider Active Team Status: Inactive Member Role Status Dates Dr. Ja Cooley MD Primary Care Provider Active Start: October 12, 2024 End: October 12, 2024 Dr. Osman Farooq MD Attending Provider Active Start: October 12, 2024 End: October 12, 2024 Dr. Osman Farooq MD Emergency Provider Active Start: October 12, 2024 End: October 12, 2024 Team Status: Inactive Member Role Status Dates Dr. Ja Cooley MD Primary Care Provider Active Start: October 28, 2024 End: October 28, 2024 Dr. Natasha Gregory MD Attending Provider Active Start: October 28, 2024 End: October 28, 2024 Dr. Natasha Gregory MD Referring Provider Active Start: October 28, 2024 End: October 28, 2024 Team Status: Inactive Member Role Status Dates Dr. Ja Cooley MD Primary Care Provider Active Start: December 02, 2024 End: December 02, 2024 Dr. Jose Perez MD Attending Provider Active Start: December 02, 2024 End: December 02, 2024 Dr. Jose Perez MD Referring Provider Active Start: December 02, 2024 End: December 02, 2024 Team Status: Inactive Member Role Status Dates Dr. Ja Cooley MD Primary Care Provider Active Start: December 04, 2024 End: December 04, 2024 Dr. Ja Cooley MD Attending Provider Active Start: December 04, 2024 End: December 04, 2024 Dr. Ja Cooley MD Referring Provider Active Start: December 04, 2024 End: December 04, 2024 Team Status: Inactive Member Role Status Dates Dr. Ja Cooley MD Primary Care Provider Active Start: December 05, 2024 End: December 05, 2024 Dr. Estuardo Mccormack DO Attending Provider Active Start: December 05, 2024 End: December 05, 2024 Dr. Estuardo Mccormack DO Emergency Provider Active Start: December 05, 2024 End: December 05, 2024 Team Status: Inactive Member Role Status Dates Dr. Ja Cooley MD Primary Care Provider Active Start: December 10, 2024 End: December 10, 2024 Dr. Ja Cooley MD Referring Provider Active Start: December 10, 2024 End: December 10, 2024 Dr. Vick Santo MD Attending Provider Active Start: December 10, 2024 End: December 10, 2024 Team Status: Inactive Member Role Status Dates Dr. Ja Cooley MD Primary Care Provider Active Start: December 10, 2024 End: December 10, 2024 Dr. Ja Cooley MD Attending Provider Active Start: December 10, 2024 End: December 10, 2024 Dr. Ja Cooley MD Referring Provider Active Start: December 10, 2024 End: December 10, 2024 Team Status: Inactive Member Role Status Dates Dr. Ja Cooley MD Primary Care Provider Active Start: January 21, 2025 End: January 21, 2025 Dr. Ja Cooley MD Attending Provider Active Start: January 21, 2025 End: January 21, 2025 Dr. Ja Cooley MD Referring Provider Active Start: January 21, 2025 End: January 21, 2025 Team Status: Active Member Role Status Dates Dr. Ja Cooley MD Primary Care Provider Active Team Status: Inactive Member Role Status Dates Dr. Ja Cooley MD Primary Care Provider Active Start: February 06, 2025 End: February 06, 2025 Dr. Ja Cooley MD Referring Provider Active Start: February 06, 2025 End: February 06, 2025 Dr. Vick Santo MD Attending Provider Active Start: February 06, 2025 End: February 06, 2025 Team Status: Inactive Member Role Status Dates Dr. Ja Cooley MD Primary Care Provider Active Start: February 14, 2025 End: February 14, 2025 Dr. Joe Soto DO Emergency Provider Active S tart: February 14, 2025 End: February 14, 2025 Team Status: Inactive Member Role Status Dates Dr. aJ Cooley MD Primary Care Provider Active Start: February 14, 2025 End: February 14, 2025 Dr. Jeo Soto DO Attending Provider Active S tart: February 14, 2025 End: February 14, 2025 Dr. Joe Soto DO Emergency Provider Active S tart: February 14, 2025 End: February 14, 2025 Team Status: Inactive Member Role Status Dates Dr. Ja Cooley MD Primary Care Provider Active Start: February 20, 2025 End: February 20, 2025 Dr. Natasha Gregory MD Attending Provider Active Start: February 20, 2025 End: February 20, 2025 Team Status: Active Member Role Status Dates Dr. Ja Cooley MD Primary Care Provider Active Start: February 25, 2025 Dr. Vick Santo MD Attending Provider Active Start: February 25, 2025 Dr. Vick Santo MD Referring Provider Active Start: February 25, 2025 Team Status: Inactive Member Role Status Dates Dr. Ja Cooley MD Primary Care Provider Active Start: March 03, 2025 End: March 03, 2025 Dr. Jose Perez MD Attending Provider Active Start: March 03, 2025 End: March 03, 2025 Team Status: Inactive Member Role Status Dates Dr. Ja Cooley MD Primary Care Provider Active Start: March 20, 2025 End: March 20, 2025 Dr. Ja Cooley MD Referring Provider Active Start: March 20, 2025 End: March 20, 2025 Dr. Vick Santo MD Attending Provider Active Start: March 20, 2025 End: March 20, 2025 Team Status: Inactive Member Role Status Dates Dr. Ja Cooley MD Primary Care Provider Active Start: March 24, 2025 End: March 24, 2025 Dr. Jose Perez MD Attending Provider Active Start: March 24, 2025 End: March 24, 2025 Dr. Jose Perez MD Referring Provider Active Start: March 24, 2025 End: March 24, 2025 Team Status: Active Member Role Status Dates Dr. Ja Cooley MD Primary Care Provider Active Start: March 26, 2025 Dr. Vick Santo MD Attending Provider Active Start: March 26, 2025 Dr. Vick Santo MD Referring Provider Active Start: March 26, 2025 Team Status: Active Member Role Status Dates Dr. Ja Cooley MD Primary Care Provider Active Start: April 01, 2025 Dr. Vick Santo MD Attending Provider Active Start: April 01, 2025 Dr. Vick Santo MD Referring Provider Active Start: April 01, 2025 Team Status: Inactive Member Role Status Dates Dr. Ja Cooley MD Primary Care Provider Active Start: April 03, 2025 End: April 03, 2025 Dr. Ja Cooley MD Attending Provider Active Start: April 03, 2025 End: April 03, 2025 Dr. Ja Cooley MD Referring Provider Active Start: April 03, 2025 End: April 03, 2025 Team Status: Inactive Member Role Status Dates Dr. Ja Cooley MD Primary Care Provider Active Start: April 09, 2025 End: April 09, 2025 Surya Dumont MD Referring Provider Active Star t: April 09, 2025 End: April 09, 2025 Surya Dumont MD Emergency Provider Active Star t: April 09, 2025 End: April 09, 2025 Health Practice Manager Relationship Specialty Start Date End Date Ja Cooley MD [facility] [address] [place] [id number] PCP - General Family Medicine 04/13/25 Team Status: Inactive Member Role Status Dates Dr. Ja Cooley MD Primary Care Provider Active Start: [...] Status: Active Member Role Status Dates Dr. Ja Cooley MD Primary Care Provider Active Start: May 07, 2025 Dr. Vick Santo MD Attending Provider Active Start: May 07, 2025 Dr. Vick Santo MD Referring Provider Active Start: May 07, 2025 Team Status: Active Member Role Status Dates Dr. Ja Cooley MD Primary Care Provider Active Start: May 09, 2025 Dr. Vick Santo MD Attending Provider Active Start: May 09, 2025 Dr. Vick Santo MD Referring Provider Active Start: May 09, 2025 Team Status: Inactive Member Role Status Dates Dr. Ja Cooley MD Primary Care Provider Active Start: May 11, 2025 End: May 11, 2025 Dr. Dano Minor MD Emergency Provider Active Sta rt: May 11, 2025 End: May 11, 2025 Team Status: Inactive Member Role Status Dates Dr. Ja Cooley MD Primary Care Provider Active Start: May 09, 2025 End: May 09, 2025 Dr. Vick Santo MD Attending Provider Active Start: May 09, 2025 End: May 09, 2025 Dr. Vick Santo MD Referring Provider Active Start: May 09, 2025 End: May 09, 2025 Team Status: Active Member Role Status Dates Dr. Ja Cooley MD Primary Care Provider Active Start: May 14, 2025 Dr. Vick Santo MD Attending Provider Active Start: May 14, 2025 Dr. Vick Santo MD Referring Provider Active Start: May 14, 2025 Team Status: Active Member Role/Relationship Status Dates Dr. Ja Cooley MD Primary Care Provider Active Team Status: Inactive Member Role/Relationship Status Dates Dr. Ja Cooley MD Primary Care Provider Active Start: January 21, 2025 End: January 21, 2025 Dr. Ja Cooley MD Attending Provider Active Start: January 21, 2025 End: January 21, 2025 Dr. Ja Cooley MD Referring Provider Active Start: January 21, 2025 End: January 21, 2025 Team Status: Inactive Member Role/Relationship Status Dates Dr. Ja Cooley MD Primary Care Provider Active Start: February 06, 2025 End: February 06, 2025 Dr. Ja Cooley MD Referring Provider Active Start: February 06, 2025 End: February 06, 2025 Dr. Vick Santo MD Attending Provider Active Start: February 06, 2025 End: February 06, 2025 Team Status: Inactive Member Role/Relationship Status Dates Dr. Ja Cooley MD Primary Care Provider Active Start: February 14, 2025 End: February 14, 2025 Dr. Joe Soto DO Attending Provider Active S tart: February 14, 2025 End: February 14, 2025 Dr. Joe Soto DO Emergency Provider Active S tart: February 14, 2025 End: February 14, 2025 Team Status: Inactive Member Role/Relationship Status Dates Dr. Ja Cooley MD Primary Care Provider Active Start: February 20, 2025 End: February 20, 2025 Dr. Natasha Gregory MD Attending Provider Active Start: February 20, 2025 End: February 20, 2025 Team Status: Inactive Member Role/Relationship Status Dates Dr. Ja Cooley MD Primary Care Provider Active Start: March 03, 2025 End: March 03, 2025 Dr. Jose Perez MD Attending Provider Active Start: March 03, 2025 End: March 03, 2025 Team Status: Inactive Member Role/Relationship Status Dates Dr. Ja Cooley MD Primary Care Provider Active Start: March 20, 2025 End: March 20, 2025 Dr. Ja Cooley MD Referring Provider Active Start: March 20, 2025 End: March 20, 2025 Dr. Vick Santo MD Attending Provider Active Start: March 20, 2025 End: March 20, 2025 Team Status: Inactive Member Role/Relationship Status Dates Dr. Ja Cooley MD Primary Care Provider Active Start: March 24, 2025 End: March 24, 2025 Dr. Jose Perez MD Attending Provider Active Start: March 24, 2025 End: March 24, 2025 Dr. Jose Perez MD Referring Provider Active Start: March 24, 2025 End: March 24, 2025 Team Status: Inactive Member Role/Relationship Status Dates Dr. Ja Cooley MD Primary Care Provider Active Start: April 03, 2025 End: April 03, 2025 Dr. Ja Cooley MD Attending Provider Active Start: April 03, 2025 End: April 03, 2025 Dr. Ja Cooley MD Referring Provider Active Start: April 03, 2025 End: April 03, 2025 Team Status: Inactive Member Role/Relationship Status Dates Dr. Ja Cooley MD Primary Care Provider Active Start: [...] Status: Inactive Member Role/Relationship Status Dates Dr. Ja Cooley MD Primary Care Provider Active Start: May 09, 2025 End: May 09, 2025 Dr. Vick Santo MD Attending Provider Active Start: May 09, 2025 End: May 09, 2025 Dr. Vick Santo MD Referring Provider Active Start: May 09, 2025 End: May 09, 2025 Team Status: Inactive Member Role/Relationship Status Dates Dr. Ja Cooley MD Primary Care Provider Active Start: May 11, 2025 End: May 11, 2025 Dr. Dano Minor MD Attending Provider Active Sta rt: May 11, 2025 End: May 11, 2025 Dr. Dano Minor MD Emergency Provider Active Sta rt: May 11, 2025 End: May 11, 2025 Team Status: Inactive Member Role/Relationship Status Dates Dr. Ja Cooley MD Primary Care Provider Active Start: May 14, 2025 End: May 14, 2025 Dr. Vick Santo MD Attending Provider Active Start: May 14, 2025 End: May 14, 2025 Dr. Vick Santo MD Referring Provider Active Start: May 14, 2025 End: May 14, 2025 Team Status: Inactive Member Role/Relationship Status Dates Dr. Ja Cooley MD Primary Care Provider Active Start: February 06, 2025 End: February 06, 2025 Dr. Ja Cooley MD Referring Provider Active Start: February 06, 2025 End: February 06, 2025 Dr. Vick Santo MD Attending Provider Active Start: February 06, 2025 End: February 06, 2025 Team Status: Inactive Member Role/Relationship Status Dates Dr. Ja Cooley MD Primary Care Provider Active Start: February 14, 2025 End: February 14, 2025 Dr. Joe Soto DO Attending Provider Active S tart: February 14, 2025 End: February 14, 2025 Dr. Joe Soto DO Emergency Provider Active S tart: February 14, 2025 End: February 14, 2025 Team Status: Inactive Member Role/Relationship Status Dates Dr. Ja oColey MD Primary Care Provider Active Start: February 20, 2025 End: February 20, 2025 Dr. Natasha Gregory MD Attending Provider Active Start: February 20, 2025 End: February 20, 2025 Team Status: Inactive Member Role/Relationship Status Dates Dr. Ja Cooley MD Primary Care Provider Active Start: March 03, 2025 End: March 03, 2025 Dr. Jose Perez MD Attending Provider Active Start: March 03, 2025 End: March 03, 2025 Team Status: Inactive Member Role/Relationship Status Dates Dr. Ja Cooley MD Primary Care Provider Active Start: March 20, 2025 End: March 20, 2025 Dr. Ja Cooley MD Referring Provider Active Start: March 20, 2025 End: March 20, 2025 Dr. Vick Santo MD Attending Provider Active Start: March 20, 2025 End: March 20, 2025 Team Status: Inactive Member Role/Relationship Status Dates Dr. Ja Cooley MD Primary Care Provider Active Start: March 24, 2025 End: March 24, 2025 Dr. Jose Perez MD Attending Provider Active Start: March 24, 2025 End: March 24, 2025 Dr. Jose Perez MD Referring Provider Active Start: March 24, 2025 End: March 24, 2025 Team Status: Inactive Member Role/Relationship Status Dates Dr. Ja Cooley MD Primary Care Provider Active Start: April 03, 2025 End: April 03, 2025 Dr. Ja Cooley MD Attending Provider Active Start: April 03, 2025 End: April 03, 2025 Dr. Ja Cooley MD Referring Provider Active Start: April 03, 2025 End: April 03, 2025 Team Status: Inactive Member Role/Relationship Status Dates Dr. Ja Cooley MD Primary Care Provider Active Start: [...] Status: Inactive Member Role/Relationship Status Dates Dr. Ja Cooley MD Primary Care Provider Active Start: May 09, 2025 End: May 09, 2025 Dr. Vick Santo MD Attending Provider Active Start: May 09, 2025 End: May 09, 2025 Dr. Vick Santo MD Referring Provider Active Start: May 09, 2025 End: May 09, 2025 Team Status: Inactive Member Role/Relationship Status Dates Dr. Ja Cooley MD Primary Care Provider Active Start: May 11, 2025 End: May 11, 2025 Dr. Dano Minor MD Attending Provider Active Sta rt: May 11, 2025 End: May 11, 2025 Dr. Dano Minor MD Emergency Provider Active Sta rt: May 11, 2025 End: May 11, 2025 Team Status: Inactive Member Role/Relationship Status Dates Dr. Ja Cooley MD Primary Care Provider Active Start: May 14, 2025 End: May 14, 2025 Dr. Vick Santo MD Attending Provider Active Start: May 14, 2025 End: May 14, 2025 Dr. Vick Santo MD Referring Provider Active Start: May 14, 2025 End: May 14, 2025 Team Status: Inactive Member Role/Relationship Status Dates Dr. Ja Cooley MD Primary Care Provider Active Start: May 26, 2025 End: May 26, 2025 Dr. Natasha Gregory MD Attending Provider Active Start: May 26, 2025 End: May 26, 2025 Dr. Natasha Gregory MD Referring Provider Active Start: May 26, 2025 End: May 26, 2025 Team Status: Inactive Member Role/Relationship Status Dates Dr. Ja Cooley MD Primary Care Provider Active Start: February 14, 2025 End: February 14, 2025 Dr. Joe Soto DO Attending Provider Active S tart: February 14, 2025 End: February 14, 2025 Dr. Joe Soto DO Emergency Provider Active S tart: February 14, 2025 End: February 14, 2025 Team Status: Inactive Member Role/Relationship Status Dates Dr. Ja Cooley MD Primary Care Provider Active Start: February 20, 2025 End: February 20, 2025 Dr. Natasha Gregory MD Attending Provider Active Start: February 20, 2025 End: February 20, 2025 Team Status: Inactive Member Role/Relationship Status Dates Dr. Ja Cooley MD Primary Care Provider Active Start: March 03, 2025 End: March 03, 2025 Dr. Jose Perez MD Attending Provider Active Start: March 03, 2025 End: March 03, 2025 Team Status: Inactive Member Role/Relationship Status Dates Dr. Ja Cooley MD Primary Care Provider Active Start: March 20, 2025 End: March 20, 2025 Dr. Ja Cooley MD Referring Provider Active Start: March 20, 2025 End: March 20, 2025 Dr. Vick Santo MD Attending Provider Active Start: March 20, 2025 End: March 20, 2025 Team Status: Inactive Member Role/Relationship Status Dates Dr. Ja Cooley MD Primary Care Provider Active Start: March 24, 2025 End: March 24, 2025 Dr. Jose Perez MD Attending Provider Active Start: March 24, 2025 End: March 24, 2025 Dr. Jose Perez MD Referring Provider Active Start: March 24, 2025 End: March 24, 2025 Team Status: Inactive Member Role/Relationship Status Dates Dr. Ja Cooley MD Primary Care Provider Active Start: April 03, 2025 End: April 03, 2025 Dr. Ja Cooley MD Attending Provider Active Start: April 03, 2025 End: April 03, 2025 Dr. Ja Cooley MD Referring Provider Active Start: April 03, 2025 End: April 03, 2025 Team Status: Inactive Member Role/Relationship Status Dates Dr. Ja Cooley MD Primary Care Provider Active Start: [...] Status: Inactive Member Role/Relationship Status Dates Dr. Ja Cooley MD Primary Care Provider Active Start: May 09, 2025 End: May 09, 2025 Dr. Vick Santo MD Attending Provider Active Start: May 09, 2025 End: May 09, 2025 Dr. Vick Santo MD Referring Provider Active Start: May 09, 2025 End: May 09, 2025 Team Status: Inactive Member Role/Relationship Status Dates Dr. Ja Cooley MD Primary Care Provider Active Start: May 11, 2025 End: May 11, 2025 Dr. Dano Minor MD Attending Provider Active Sta rt: May 11, 2025 End: May 11, 2025 Dr. Dano Minor MD Emergency Provider Active Sta rt: May 11, 2025 End: May 11, 2025 Team Status: Inactive Member Role/Relationship Status Dates Dr. Ja Cooley MD Primary Care Provider Active Start: May 14, 2025 End: May 14, 2025 Dr. Vick Santo MD Attending Provider Active Start: May 14, 2025 End: May 14, 2025 Dr. Vick Santo MD Referring Provider Active Start: May 14, 2025 End: May 14, 2025 Team Status: Inactive Member Role/Relationship Status Dates Dr. Ja Cooley MD Primary Care Provider Active Start: May 26, 2025 End: May 26, 2025 Dr. Natasha Gregory MD Attending Provider Active Start: May 26, 2025 End: May 26, 2025 Dr. Natasha Gregory MD Referring Provider Active Start: May 26, 2025 End: May 26, 2025 Team Status: Active Member Role/Relationship Status Dates Dr. Ja Cooley MD Primary Care Provider Active Start: June 08, 2025 Dr. Joe Soto DO Emergency Provider Active S tart: June 08, 2025 Dr. Geo Garza DO Admit Provider Active Start: June 08, 2025 Dr. Geo Garza DO Attending Provider Active Start: June 08, 2025 Team Status: Inactive Member Role/Relationship Status Dates Dr. Ja Cooley MD Primary Care Provider Active Start: June 08, 2025 End: June 09, 2025 Dr. Joe Soto DO Emergency Provider Active S tart: June 08, 2025 End: June 09, 2025 Dr. Geo Garza DO Admit Provider Active Start: June 08, 2025 End: June 09, 2025 Dr. Geo Garza DO Other Provider Active Start: June 08, 2025 End: June 09, 2025 Dr. Daphnie Narayanan MD Attending Provider Active Start: June 08, 2025 End: June 09, 2025 Dr. Daphnie Narayanan MD Other Provider Active St art: June 08, 2025 End: June 09, 2025 Team Status: Active Member Role/Relationship Status Dates Dr. Ja Cooley MD Primary Care Provider Active Start: June 09, 2025 Dr. uGillermo Zavala MD Attending Provider Active S tart: June 09, 2025 Team Status: Active Member Role/Relationship Status Dates Dr. Ja Cooley MD Primary Care Provider Active Start: June 09, 2025 Dr. Vladimir Sears MD Attending Provider Active S tart: June 09, 2025 Team Status: Active Member Role/Relationship Status Dates Dr. Ja Cooley MD Primary Care Provider Active Start: June 09, 2025 Dr. Joe Soto DO Emergency Provider Active S tart: June 09, 2025 Dr. Geo Garza DO Admit Provider Active Start: June 09, 2025 Dr. Geo Garza DO Other Provider Active Start: June 09, 2025 Dr. Daphnie Narayanan MD Attending Provider Active Start: June 09, 2025 Dr. Daphnie Narayanan MD Other Provider Active St art: June 09, 2025 Team Status: Inactive Member Role/Relationship Status Dates Dr. Ja Cooley MD Primary Care Provider Active Start: June 12, 2025 End: June 12, 2025 Dr. Maty Dial DO Emergency Provider Active Start: June 12, 2025 End: June 12, 2025 Team Status: Inactive Member Role/Relationship Status Dates Dr. Ja Cooley MD Primary Care Provider Active Start: February 20, 2025 End: February 20, 2025 Dr. Natasha Gregory MD Attending Provider Active Start: February 20, 2025 End: February 20, 2025 Team Status: Inactive Member Role/Relationship Status Dates Dr. Ja Cooley MD Primary Care Provider Active Start: March 03, 2025 End: March 03, 2025 Dr. Jose Perez MD Attending Provider Active Start: March 03, 2025 End: March 03, 2025 Team Status: Inactive Member Role/Relationship Status Dates Dr. Ja Cooley MD Primary Care Provider Active Start: March 20, 2025 End: March 20, 2025 Dr. Ja Cooley MD Referring Provider Active Start: March 20, 2025 End: March 20, 2025 Dr. Vick Santo MD Attending Provider Active Start: March 20, 2025 End: March 20, 2025 Team Status: Inactive Member Role/Relationship Status Dates Dr. Ja Cooley MD Primary Care Provider Active Start: March 24, 2025 End: March 24, 2025 Dr. Jose Perez MD Attending Provider Active Start: March 24, 2025 End: March 24, 2025 Dr. Jose Perez MD Referring Provider Active Start: March 24, 2025 End: March 24, 2025 Team Status: Inactive Member Role/Relationship Status Dates Dr. Ja Cooley MD Primary Care Provider Active Start: April 03, 2025 End: April 03, 2025 Dr. Ja Cooley MD Attending Provider Active Start: April 03, 2025 End: April 03, 2025 Dr. Ja Cooley MD Referring Provider Active Start: April 03, 2025 End: April 03, 2025 Team Status: Inactive Member Role/Relationship Status Dates Dr. Ja Cooley MD Primary Care Provider Active Start: [...] Status: Inactive Member Role/Relationship Status Dates Dr. Ja Cooley MD Primary Care Provider Active Start: May 09, 2025 End: May 09, 2025 Dr. Vick Santo MD Attending Provider Active Start: May 09, 2025 End: May 09, 2025 Dr. Vick Santo MD Referring Provider Active Start: May 09, 2025 End: May 09, 2025 Team Status: Inactive Member Role/Relationship Status Dates Dr. Ja Cooley MD Primary Care Provider Active Start: May 11, 2025 End: May 11, 2025 Dr. Dano Minor MD Attending Provider Active Sta rt: May 11, 2025 End: May 11, 2025 Dr. Dano Mnior MD Emergency Provider Active Sta rt: May 11, 2025 End: May 11, 2025 Team Status: Inactive Member Role/Relationship Status Dates Dr. Ja Cooley MD Primary Care Provider Active Start: May 14, 2025 End: May 14, 2025 Dr. Vick Santo MD Attending Provider Active Start: May 14, 2025 End: May 14, 2025 Dr. Vick Santo MD Referring Provider Active Start: May 14, 2025 End: May 14, 2025 Team Status: Inactive Member Role/Relationship Status Dates Dr. Ja Cooley MD Primary Care Provider Active Start: May 26, 2025 End: May 26, 2025 Dr. Natasha Gregory MD Attending Provider Active Start: May 26, 2025 End: May 26, 2025 Dr. Natasha Gregory MD Referring Provider Active Start: May 26, 2025 End: May 26, 2025 Team Status: Inactive Member Role/Relationship Status Dates Dr. Ja Cooley MD Primary Care Provider Active Start: June 08, 2025 End: June 09, 2025 Dr. Joe Soto DO Emergency Provider Active S tart: June 08, 2025 End: June 09, 2025 Dr. Geo Garza DO Admit Provider Active Start: June 08, 2025 End: June 09, 2025 Dr. Geo Garza DO Other Provider Active Start: June 08, 2025 End: June 09, 2025 Dr. Daphnie Narayanan MD Attending Provider Active Start: June 08, 2025 End: June 09, 2025 Dr. Daphnie Narayanan MD Other Provider Active St art: June 08, 2025 End: June 09, 2025 Team Status: Active Member Role/Relationship Status Dates Dr. Ja Cooley MD Primary Care Provider Active Start: June 09, 2025 Dr. Guillermo Zavala MD Attending Provider Active S tart: June 09, 2025 Team Status: Active Member Role/Relationship Status Dates Dr. Ja Cooley MD Primary Care Provider Active Start: June 09, 2025 Dr. Vladimir Sears MD Attending Provider Active S tart: June 09, 2025 Team Status: Active Member Role/Relationship Status Dates Dr. Ja Cooley MD Primary Care Provider Active Start: June 09, 2025 Dr. Joe Soto DO Emergency Provider Active S tart: June 09, 2025 Dr. Geo Garza DO Admit Provider Active Start: June 09, 2025 Dr. Geo Garza DO Other Provider Active Start: June 09, 2025 Dr. Daphnie Narayanan MD Attending Provider Active Start: June 09, 2025 Dr. Daphnie Narayanan MD Other Provider Active St art: June 09, 2025 Team Status: Inactive Member Role/Relationship Status Dates Dr. Ja Cooley MD Primary Care Provider Active Start: June 12, 2025 End: June 12, 2025 Dr. Maty Dial DO Attending Provider Active Start: June 12, 2025 End: June 12, 2025 Dr. Maty Dial DO Emergency Provider Active Start: June 12, 2025 End: June 12, 2025 Team Status: Inactive Member Role/Relationship Status Dates Dr. Ja Cooley MD Primary Care Provider Active Start: June 19, 2025 End: June 19, 2025 Surya Dumont MD Emergency Provider Active Star t: June 19, 2025 End: June 19, 2025 Team Status: Inactive Member Role/Relationship Status Dates Dr. Ja Cooley MD Primary Care Provider Active Start: March 03, 2025 End: March 03, 2025 Dr. Jose Perez MD Attending Provider Active Start: March 03, 2025 End: March 03, 2025 Team Status: Inactive Member Role/Relationship Status Dates Dr. Ja Cooley MD Primary Care Provider Active Start: March 20, 2025 End: March 20, 2025 Dr. Ja Cooley MD Referring Provider Active Start: March 20, 2025 End: March 20, 2025 Dr. Vick Santo MD Attending Provider Active Start: March 20, 2025 End: March 20, 2025 Team Status: Inactive Member Role/Relationship Status Dates Dr. Ja Cooley MD Primary Care Provider Active Start: March 24, 2025 End: March 24, 2025 Dr. Jose Perez MD Attending Provider Active Start: March 24, 2025 End: March 24, 2025 Dr. Jose Perez MD Referring Provider Active Start: March 24, 2025 End: March 24, 2025 Team Status: Inactive Member Role/Relationship Status Dates Dr. Ja Cooley MD Primary Care Provider Active Start: April 03, 2025 End: April 03, 2025 Dr. Ja Cooley MD Attending Provider Active Start: April 03, 2025 End: April 03, 2025 Dr. Ja Cooley MD Referring Provider Active Start: April 03, 2025 End: April 03, 2025 Team Status: Inactive Member Role/Relationship Status Dates Dr. Ja Cooley MD Primary Care Provider Active Start: [...] Status: Inactive Member Role/Relationship Status Dates Dr. Ja Cooley MD Primary Care Provider Active Start: May 09, 2025 End: May 09, 2025 Dr. Vick Santo MD Attending Provider Active Start: May 09, 2025 End: May 09, 2025 Dr. Vick Santo MD Referring Provider Active Start: May 09, 2025 End: May 09, 2025 Team Status: Inactive Member Role/Relationship Status Dates Dr. Ja Cooley MD Primary Care Provider Active Start: May 11, 2025 End: May 11, 2025 Dr. Dano Minor MD Attending Provider Active Sta rt: May 11, 2025 End: May 11, 2025 Dr. Dano Minor MD Emergency Provider Active Sta rt: May 11, 2025 End: May 11, 2025 Team Status: Inactive Member Role/Relationship Status Dates Dr. Ja Cooley MD Primary Care Provider Active Start: May 14, 2025 End: May 14, 2025 Dr. Vick Santo MD Attending Provider Active Start: May 14, 2025 End: May 14, 2025 Dr. Vick Santo MD Referring Provider Active Start: May 14, 2025 End: May 14, 2025 Team Status: Inactive Member Role/Relationship Status Dates Dr. Ja Cooley MD Primary Care Provider Active Start: May 26, 2025 End: May 26, 2025 Dr. Natasha Gregory MD Attending Provider Active Start: May 26, 2025 End: May 26, 2025 Dr. Natasha Gregory MD Referring Provider Active Start: May 26, 2025 End: May 26, 2025 Team Status: Inactive Member Role/Relationship Status Dates Dr. Ja Cooley MD Primary Care Provider Active Start: June 08, 2025 End: June 09, 2025 Dr. Joe Soto DO Emergency Provider Active S tart: June 08, 2025 End: June 09, 2025 Dr. Geo Garza DO Admit Provider Active Start: June 08, 2025 End: June 09, 2025 Dr. Geo Garza , Other Provider Active Start: June 08, 2025 End: June 09, 2025 Dr. Daphnie Narayanan MD Attending Provider Active Start: June 08, 2025 End: June 09, 2025 Dr. Daphnie Narayanan MD Other Provider Active St art: June 08, 2025 End: June 09, 2025 Team Status: Active Member Role/Relationship Status Dates Dr. Ja Cooley MD Primary Care Provider Active Start: June 09, 2025 Dr. Guillermo Zavala MD Attending Provider Active S tart: June 09, 2025 Team Status: Active Member Role/Relationship Status Dates Dr. Ja Cooley MD Primary Care Provider Active Start: June 09, 2025 Dr. Vladimir Sears MD Attending Provider Active S tart: June 09, 2025 Team Status: Active Member Role/Relationship Status Dates Dr. Ja Cooley MD Primary Care Provider Active Start: June 09, 2025 Dr. Joe Soto DO Emergency Provider Active S tart: June 09, 2025 Dr. Geo Garza DO Admit Provider Active Start: June 09, 2025 Dr. Geo Garza DO Other Provider Active Start: June 09, 2025 Dr. Daphnie Narayanan MD Attending Provider Active Start: June 09, 2025 Dr. Daphnie Narayanan MD Other Provider Active St art: June 09, 2025 Team Status: Inactive Member Role/Relationship Status Dates Dr. Ja Cooley MD Primary Care Provider Active Start: June 12, 2025 End: June 12, 2025 Dr. Maty Dial DO Attending Provider Active Start: June 12, 2025 End: June 12, 2025 Dr. Maty Dial DO Emergency Provider Active Start: June 12, 2025 End: June 12, 2025 Team Status: Inactive Member Role/Relationship Status Dates Dr. Ja Cooley MD Primary Care Provider Active Start: June 19, 2025 End: June 19, 2025 Surya Dumont MD Emergency Provider Active Star t: June 19, 2025 End: June 19, 2025 Team Status: Inactive Member Role/Relationship Status Dates Dr. Ja Cooley MD Primary Care Provider Active Start: June 24, 2025 End: June 24, 2025 Dr. Ja Cooley MD Referring Provider Active Start: June 24, 2025 End: June 24, 2025 Dr. Curt Isaacs MD Attending Provider Active Start: June 24, 2025 End: June 24, 2025 Team Status: Inactive Member Role/Relationship Status Dates Dr. Ja Cooley MD Primary Care Provider Active Start: June 26, 2025 End: June 26, 2025 Dr. Ja Cooley MD Referring Provider Active Start: June 26, 2025 End: June 26, 2025 Dr. Vick Santo MD Attending Provider Active Start: June 26, 2025 End: June 26, 2025 Team Status: Inactive Member Role/Relationship Status Dates Dr. Ja Cooley MD Primary Care Provider Active Start: June 19, 2025 End: June 19, 2025 Surya Dumont MD Attending Provider Active Star t: June 19, 2025 End: June 19, 2025 Surya Dumont MD Emergency Provider Active Star t: June 19, 2025 End: June 19, 2025 Team Status: Inactive Member Role/Relationship Status Dates Dr. Ja Cooley MD Primary Care Provider Active Start: June 27, 2025 End: June 27, 2025 Dr. Ja Cooley MD Referring Provider Active Start: June 27, 2025 End: June 27, 2025 Christel Bae DEPARTMENT CHAIRPERSON, DEPARTMENT CHAIRPERSON-C Attending Provider Active Start: June 27, 2025 End: June 27, 2025 Team Status: Inactive Member Role/Relationship Status Dates Dr. Ja Cooley MD Primary Care Provider Active Start: March 20, 2025 End: March 20, 2025 Dr. Ja Cooley MD Referring Provider Active Start: March 20, 2025 End: March 20, 2025 Dr. Vick Santo MD Attending Provider Active Start: March 20, 2025 End: March 20, 2025 Team Status: Inactive Member Role/Relationship Status Dates Dr. Ja Cooley MD Primary Care Provider Active Start: March 24, 2025 End: March 24, 2025 Dr. Jose Perez MD Attending Provider Active Start: March 24, 2025 End: March 24, 2025 Dr. Jose Perez MD Referring Provider Active Start: March 24, 2025 End: March 24, 2025 Team Status: Inactive Member Role/Relationship Status Dates Dr. Ja Cooley MD Primary Care Provider Active Start: April 03, 2025 End: April 03, 2025 Dr. Ja Cooley MD Attending Provider Active Start: April 03, 2025 End: April 03, 2025 Dr. Ja Cooley MD Referring Provider Active Start: April 03, 2025 End: April 03, 2025 Team Status: Inactive Member Role/Relationship Status Dates Dr. Ja Cooley MD Primary Care Provider Active Start: [...] Status: Inactive Member Role/Relationship Status Dates Dr. Ja Cooley MD Primary Care Provider Active Start: May 09, 2025 End: May 09, 2025 Dr. Vick Santo MD Attending Provider Active Start: May 09, 2025 End: May 09, 2025 Dr. Vick Santo MD Referring Provider Active Start: May 09, 2025 End: May 09, 2025 Team Status: Inactive Member Role/Relationship Status Dates Dr. Ja Cooley MD Primary Care Provider Active Start: May 11, 2025 End: May 11, 2025 Dr. Dano Minor MD Attending Provider Active Sta rt: May 11, 2025 End: May 11, 2025 Dr. Dano Minor MD Emergency Provider Active Sta rt: May 11, 2025 End: May 11, 2025 Team Status: Inactive Member Role/Relationship Status Dates Dr. Ja Cooley MD Primary Care Provider Active Start: May 14, 2025 End: May 14, 2025 Dr. Vick Santo MD Attending Provider Active Start: May 14, 2025 End: May 14, 2025 Dr. Vick Santo MD Referring Provider Active Start: May 14, 2025 End: May 14, 2025 Team Status: Inactive Member Role/Relationship Status Dates Dr. Ja Cooley MD Primary Care Provider Active Start: May 26, 2025 End: May 26, 2025 Dr. Natasha Gregory MD Attending Provider Active Start: May 26, 2025 End: May 26, 2025 Dr. Natasha Gregory MD Referring Provider Active Start: May 26, 2025 End: May 26, 2025 Team Status: Inactive Member Role/Relationship Status Dates Dr. Ja Cooley MD Primary Care Provider Active Start: June 08, 2025 End: June 09, 2025 Dr. Joe Soto DO Emergency Provider Active S tart: June 08, 2025 End: June 09, 2025 Dr. Geo Garza DO Admit Provider Active Start: June 08, 2025 End: June 09, 2025 Dr. Geo Garza DO Other Provider Active Start: June 08, 2025 End: June 09, 2025 Dr. Daphnie Narayanan MD Attending Provider Active Start: June 08, 2025 End: June 09, 2025 Dr. Daphnie Narayanan MD Other Provider Active St art: June 08, 2025 End: June 09, 2025 Team Status: Active Member Role/Relationship Status Dates Dr. Ja Cooley MD Primary Care Provider Active Start: June 09, 2025 Dr. Guillermo Zavala MD Attending Provider Active S tart: June 09, 2025 Dr. Geo Garza DO Referring Provider Active Start: June 09, 2025 Team Status: Active Member Role/Relationship Status Dates Dr. Ja Cooley MD Primary Care Provider Active Start: June 09, 2025 Dr. Vladimir Sears MD Attending Provider Active S tart: June 09, 2025 Team Status: Active Member Role/Relationship Status Dates Dr. Ja Cooley MD Primary Care Provider Active Start: June 09, 2025 Dr. Joe Soto DO Emergency Provider Active S tart: June 09, 2025 Dr. Geo Garza DO Admit Provider Active Start: June 09, 2025 Dr. Geo Garza DO Other Provider Active Start: June 09, 2025 Dr. Daphnie Narayanan MD Attending Provider Active Start: June 09, 2025 Dr. Daphnie Narayanan MD Other Provider Active St art: June 09, 2025 Team Status: Inactive Member Role/Relationship Status Dates Dr. Ja Cooley MD Primary Care Provider Active Start: June 12, 2025 End: June 12, 2025 Dr. Maty Dial DO Attending Provider Active Start: June 12, 2025 End: June 12, 2025 Dr. Maty Dial DO Emergency Provider Active Start: June 12, 2025 End: June 12, 2025 Team Status: Inactive Member Role/Relationship Status Dates Dr. Ja Cooley MD Primary Care Provider Active Start: June 19, 2025 End: June 19, 2025 Surya Dumont MD Attending Provider Active Star t: June 19, 2025 End: June 19, 2025 Surya Dumont MD Emergency Provider Active Star t: June 19, 2025 End: June 19, 2025 Team Status: Inactive Member Role/Relationship Status Dates Dr. Ja Cooley MD Primary Care Provider Active Start: June 24, 2025 End: June 24, 2025 Dr. Ja Cooley MD Referring Provider Active Start: June 24, 2025 End: June 24, 2025 Dr. Curt Isaacs MD Attending Provider Active Start: June 24, 2025 End: June 24, 2025 Team Status: Inactive Member Role/Relationship Status Dates Dr. Ja Cooley MD Primary Care Provider Active Start: June 26, 2025 End: June 26, 2025 Dr. Ja Cooley MD Referring Provider Active Start: June 26, 2025 End: June 26, 2025 Dr. Vick Santo MD Attending Provider Active Start: June 26, 2025 End: June 26, 2025 Team Status: Inactive Member Role/Relationship Status Dates Dr. Ja Cooley MD Primary Care Provider Active Start: June 27, 2025 End: June 27, 2025 Dr. Ja Cooley MD Referring Provider Active Start: June 27, 2025 End: June 27, 2025 Christel Bae DEPARTMENT CHAIRPERSON, DEPARTMENT CHAIRPERSON-C Attending Provider Active Start: June 27, 2025 End: June 27, 2025 Team Status: Active Member Role/Relationship Status Dates Dr. Ja Cooley MD Primary Care Provider Active Start: July 05, 2025 Dr. Ja Cooley MD Attending Provider Active Start: July 05, 2025 Team Status: Inactive Member Role/Relationship Status Dates Dr. Ja Cooley MD Primary Care Provider Active Start: July 07, 2025 End: July 07, 2025 Dr. Yadiel Deras MD Emergency Provider Active S tart: July 07, 2025 End: July 07, 2025 Goals (unrecognized section and content) Goals [...] ON THE PRIMARY CLINICAL RECORDS. [facility] [employer] [facility] provides no warranty or guarantee of the accuracy or completeness of information in this document.
[2025-07-12 19:46] LABS: Red Blood Cells-Urine 0-5 SEEN /hpf (0-5)
[2025-07-12 20:03] VITALS: BP 167/91; PULSE 101; RESP 17; O2SAT 93
[2025-07-12 20:09] LABS: Anion Gap 13 (5-15); BUN 24 mg/dL (4-19); BUN/Creat Ratio 20.4 RATIO (10-20); Calcium,Total 9.0 mg/dL (7.6-11.0); Carbon Dioxide 24.0 mmol/L (21.0-32.0); Chloride 104 mmol/L (98-108); Estimated Creatinine Clearance 63.51 ml/min (50-250); Glucose 256 mg/dL (70-99); Potassium 4.0 mmol/L (3.3-5.1)
[2025-07-12 20:38] VITALS: BP 167/91; PULSE 101; RESP 17; TEMP 36.9; O2SAT 93
--- NOTE | 2025-07-12 20:38 | ED.RN ---
Report called to [employer]
== END 2025-07-12 20:39 | disposition home or self-care (01) ==
PROVIDERS: Emergency Provider Emergency Medicine; PCP Family Medicine; Visit Provider Emergency Medicine
DX: S09.90XA Unspecified injury of head, initial encounter (principal); G20.A1 Parkinson's disease without dyskinesia, without mention of fluctuations; F02.80 Dementia in other diseases classified elsewhere, unspecified severity, without behavioral disturbance, psychotic disturbance, mood disturbance, and anxiety; I48.0 Paroxysmal atrial fibrillation; E11.65 Type 2 diabetes mellitus with hyperglycemia; Z79.4 Long term (current) use of insulin; W01.10XA Fall on same level from slipping, tripping and stumbling with subsequent striking against unspecified object, initial encounter; E78.5 Hyperlipidemia, unspecified; I10 Essential (primary) hypertension; R29.6 Repeated falls; N40.0 Benign prostatic hyperplasia without lower urinary tract symptoms; K21.9 Gastro-esophageal reflux disease without esophagitis; Z79.82 Long term (current) use of aspirin; Z79.84 Long term (current) use of oral hypoglycemic drugs; Z79.899 Other long term (current) drug therapy; Z87.891 Personal history of nicotine dependence
CPT/HCPCS: 70450; 80048; 81001; 87086; 87088; 99285; A4216

== ENCOUNTER 2025-08-15 15:20 | Outpatient (CLI) | payer MEDICARE, OTHER, SELFPAY ==
[2025-08-15 18:46] LABS: Hematocrit 43.5 % (40-54); Hemoglobin 14.2 g/dL (13.0-16.5); Immature Granulocytes Count 0.040 X10^3/uL (0.0-0.0); Mean Corp Hgb Conc 32.6 g/dL (32-36); Mean Corpuscular Volume 91.0 fL (80-94); Mean Platelet Vol. 10.8 fl (6.2-12.0); NRBC Flagged by Analyzer 0 % (0-5); Platelet Count 289 K/mm3 (150-450); RBC Distribution Width CV 13.2 % (11.6-14.6); RBC Distribution Width SD 44.5 fl (35.1-43.9); Red Blood Count 4.78 M/mm3 (4.6-6.2); White Blood Count 7.8 K/mm3 (4.4-11.0)
[2025-08-15 19:30] LABS: AST(SGOT) 14 U/L (<=37); Alanine Aminotransfer ALT/SGPT 12 U/L (<=46); Albumin, Serum 4.1 g/dL (3.4-4.8); Alkaline Phosphatase 90 U/L (40-129); Anion Gap 22 (5-15); BUN 20 mg/dL (4-19); BUN/Creat Ratio 24.1 RATIO (10-20); Calcium,Total 8.8 mg/dL (7.6-11.0); Carbon Dioxide 16.1 mmol/L (21.0-32.0); Chloride 103 mmol/L (98-108); Cholesterol 120 mg/dL (<=200); Globulin 2.9 g/dL (2.2-4.2); Glucose 94 mg/dL (70-99); Low Density Lipoprotein Calc. 62 mg/dL; Potassium 4.0 mmol/L (3.3-5.1); Triglycerides 77 mg/dL; Very Low Density Lipoprotein 15 mg/dL (5-40); Vitamin D,25 Hydroxy 46.6 ng/mL (30-100); cholesterol:hdl ratio screen 2.83
== END 2025-08-15 23:59 | disposition home or self-care (01) ==
LOC: MFPLAB 15:21
PROVIDERS: PCP Family Medicine; Referring Provider Family Medicine; Visit Provider Family Medicine
DX: E11.9 Type 2 diabetes mellitus without complications (principal); E55.9 Vitamin D deficiency, unspecified
CPT/HCPCS: 36415; 80053; 80061; 82306; 83036; 84443; 85025

== ENCOUNTER 2025-08-22 07:18 | Emergency (ER) | payer MEDICARE, OTHER, SELFPAY ==
[2025-08-22 07:20] VITALS: BP 137/84; PULSE 90; RESP 16; TEMP 36.5; O2SAT 97; BMI 34.0
--- NOTE | 2025-08-22 07:27 | CT_ITS ---
PROCEDURE: SINUS/FACIAL BONE 08/22/2025 REASON FOR EXAM: FALL Parkinson's disease. Multiple falls. TECHNIQUE: Procedure Code: CTSI Modality: CT Procedure: SINUS/FACIAL BONE Coronal and Sagittal reconstruction series were provided. One or more dose reduction techniques were used (e.g., Automated exposure control, adjustment of the mA and/or kV according to patient size, use of iterative reconstruction technique). RADIATION DOSE SUMMARY: CTDlvol: 29 mGy DLP: 701 mGycm COMPARISON: Head CT of the same day and July 12, 2025, July 07, 2025 FINDINGS: Mandible is intact. The maxilla is intact. Zygomatic arches are intact. The minimally displaced fracture of the posterolateral left orbital wall is unchanged. No intraconal or extraconal mass or hematoma is seen. Extra-ocular muscles are intact. The orbital floor is intact. The right orbit and contents are unremarkable. Very mild curvature nasal septum to the right. Paranasal sinuses are clear. No acute fracture of the nasal bones. Anterior inferior nasal spine is intact. Soft tissue swelling left frontal region is present. Similar finding was seen on prior exam. CT/Sinus/Facial Bone IMPRESSION: 1. No new acute fracture. Chronic fracture of the left posterolateral orbital wall is unchanged and uncomplicated. The findings and impression of this report were called to the ordering Devonte doll at the time of the head CT. Reading Location: [id number]
--- NOTE | 2025-08-22 07:28 | CT_ITS ---
PROCEDURE: SPINE CERVICAL WITHOUT CONTRAS 08/22/2025 REASON FOR EXAM: TRAUMA Parkinson's disease. Repeated falls. TECHNIQUE: Procedure Code: CTS Modality: CT Procedure: SPINE CERVICAL WITHOUT CONTRAS Coronal and Sagittal reconstruction series were provided. One or more dose reduction techniques were used (e.g., Automated exposure control, adjustment of the mA and/or kV according to patient size, use of iterative reconstruction technique. RADIATION DOSE SUMMARY: CTDlvol: 25 mGy DLP: 562 mGycm COMPARISON: June 12, 2025 FINDINGS: Alignment: Straightened. No significant spondylolisthesis. Vertebrae: No fracture seen. Degenerative change between the anterior arch of C1 and the dens of C2. Disc space narrowing, marginal endplate spurring and uncinate spurring C3/4, C4/5, C5/6 and C6/7. Soft Tissues: No cervical mass or lymphadenopathy. Atherosclerotic change of the carotid bifurcation. CT/Spine Cervical without Contras IMPRESSION: 1. Straightening of the normal cervical lordosis. Consider spasm. 2. Multilevel degenerative disc disease. No fracture. Reading Location: [id number]
--- NOTE | 2025-08-22 07:28 | CT_ITS ---
PROCEDURE: BRAIN/HEAD WITHOUT CONTRAST N/A REASON FOR EXAM: TRAUMA TECHNIQUE: Procedure Code: CTBR Modality: CT Procedure: BRAIN/HEAD WITHOUT CONTRAST Coronal and Sagittal reconstruction series were provided. One or more dose reduction techniques were used (e.g., Automated exposure control, adjustment of the mA and/or kV according to patient size, use of iterative reconstruction technique. RADIATION DOSE SUMMARY: CTDlvol: 45 mGy DLP: 829 mGycm COMPARISON: Facial bone CT and cervical spine CT of the same day FINDINGS: Brain: There is no evidence of acute ischemia or acute hemorrhage. However, a subacute to chronic subdural hematoma is seen along the left dorsal lateral convexity. The density of the subdural is intermediate, slightly greater than CSF; maximal thickness in the high parietal lobe is 15 mm. This is associated with 5.8 mm of midline shift of the falx to the right. This was not present on the exam of July 12, 2025 CSF Spaces: As above. Moderate generalized cerebral atrophy. No hydrocephalus. Sinuses/Mastoids: Paranasal sinuses are clear. Mastoids are clear. Bones: No calvarial fracture seen. Fractures of the facial bones to be better described on the dedicated exam. CT/Brain/Head without Contrast IMPRESSION: Subacute to chronic subdural hematoma along the left dorsal lateral convexity. Midline shift 5.8 mm to the right. [place] Alert: Extra-axial collection as above The critical findings in the findings and impression above were relayed directl y by me by telephone to Tex Whitney on 08/22/2025 at 8:05 am with readback verification. Reading Location: [id number]
--- NOTE | 2025-08-22 07:32 | ED.VIS.FALL ---
HPI HPI - Fall History of Present Illness Chief Complaint: Fall Narrative Narrative: Chief complaint and HPI: 80-year-old male with past medical history of Parkinson's disease, DM2, HTN, paroxysmal atrial fibrillation not on anticoagulation presents for evaluation after mechanical falls. Patient states he had 2 mechanical falls last night while getting out of his wheelchair. States that he often loses his balance when trying to move from his wheelchair to walking. He hit his head and face. No LOC. He has abrasions to the face. He denies any fever, chills, shortness of breath, chest pain abdominal pain, nausea, vomiting, dysuria, pain from the fall. Review of systems: See HPI Medications: As listed on the chart Allergies: As listed on the chart PFSH: Per chart Vital signs: As listed on the chart. Reviewed. Physical exam: Gen: A&Ox3, NAD Head: Normocephalic, atraumatic, no soriano signs Eyes: No sclera icterus, conjunctiva clear, PERRL-3mm, EOMI, no raccoon eyes ENT: TMs clear BL, moist mucous membranes, no swelling/lacerations/blood in the mouth or the nares, No nasal septal hematoma, mild facial tenderness over the 2 abrasions on his face-largest abrasion is located over the nose Neck: Trachea midline, No JVD, Nontender CV: RRR, no murmurs, no chest wall TTP Resp: Lungs CTA BL, no w/r/c GI: Abd soft, non-distended, non-tender, no r/r/g Musc: Moves all extremities, no deformity, no spinal TTP, no carlton step-offs, was able to ambulate from the cot to the bed without difficulty Skin: Warm, dry Neuro: Alert, oriented, grossly intact, sensation intact, GCS 15 Psych: Cooperative, appropriate mood and affect [facility] Medical History Hard of hearing 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 200 mcg-umeclid 1 inh inhalation DAILY SOB 04/12/22 Unknown History 62.5 mcg-vilant 25 mcg inhalat.powder (Trelegy Ellipta) pantoprazole 40 mg tablet,delayed 40 mg PO DAILY acid reflux 04/12/22 Unknown History release finasteride 5 mg tablet 5 mg PO DAILY urine flow 04/11/23 Unknown History alfuzosin 10 mg tablet,extended 10 mg PO DAILY urinary retention 04/12/23 Unknown History release 24 hr cholecalciferol (vitamin D3) 25 4,000 unit PO DAILY supplement 04/12/23 Unknown History mcg (1,000 unit) capsule insulin aspart U-100 100 unit/mL See Rx Instructions .Route 04/12/23 Unknown History subcutaneous solution (Novolog .COMPLEX diabetes U-100 Insulin aspart) metformin 750 mg tablet,extended 750 mg PO QHS diabetes 04/12/23 Unknown History release 24 hr insulin glargine U-300 conc 300 54 unit subcut DAILY diabetes 06/27/24 Unknown History unit/mL (3 mL) subcutaneous pen (Toujeo Max U-300 SoloStar) albuterol sulfate 90 mcg/actuation 2 inh inhalation Q6H PRN shortness 06/08/25 Unknown History aerosol inhaler of breath or wheezing aspirin 81 mg tablet,delayed 81 mg PO QHS heart health 06/08/25 Unknown History release (Adult Aspirin Regimen) budesonide 1 mg/2 mL suspension 1 mg inhalation Q6H SOB 06/08/25 Unknown History for nebulization (Pulmicort) insulin lispro 100 unit/mL See Protocol subcut 06/12/25 Unknown History subcutaneous pen (Humalog KwikPen (U-100) Insulin) ropinirole 1 mg tablet 1 mg PO TID #21 tabs 06/26/25 Unknown Rx carbidopa 25 mg-levodopa 100 mg 2 tab PO 4X/DAY parkinsons #720 06/29/25 Unknown Rx tablet tabs doxepin 25 mg capsule 25 mg PO QHS nerve pain #90 caps 07/11/25 Unknown Rx propranolol 60 mg capsule,24 60 mg PO QHS blood pressure #90 07/11/25 Unknown Rx hr,extended release caps sertraline 50 mg tablet 100 mg (2 x 50 mg) PO QAM #60 tabs 07/17/25 Unknown Rx Allergy/AdvReac Type Severity Reaction Status Date / Time metoclopramide (From Reglan) Allergy Severe HYPER Verified 08/22/25 07:23 Family History Father Leukemia Surgical History History of total left knee replacement (TKR) History of left tennis elbow Hx of spinal fusion History of skin cancer Social History household members: spouse housing: senior living Smoking Status: Former smoker alcohol intake: never substance use type: does not use EXAM Physical Exam Const Vital Signs: 08/22/25 07:20 08/22/25 07:25 Temperature 97.7 F L Temperature Source Oral Pulse Rate 90 Respiratory Rate 16 Respiratory Effort Normal Blood Pressure 137/84 H Blood Pressure Mean 101 Pulse Ox 97 Oxygen Delivery Method Room Air Room Air MDM MDM MDM Narrative Medical decision making narrative: 80-year-old male with past medical history of Parkinson's disease, DM2, HTN, paroxysmal atrial fibrillation not on anticoagulation presents for evaluation after mechanical falls. Patient states he had 2 mechanical falls last night while getting out of his wheelchair. States that he often loses his balance when trying to move from his wheelchair to walking. He hit his head and face. No LOC. He has abrasions to the face. Patient lives at an assisted living and per their protocol after 2 falls he needs to be evaluated in the emergency department. He states he has no complaints. Given that these were mechanical falls, I do not think any laboratory workup is needed. Patient states he is unsteady at baseline given his Parkinson's. Given patient hit his head and face will obtain CT head, neck, face to assess for intracranial bleed, fractures, contusion. Abrasions will be cleaned with bacitracin. CT of the brain shows subacute to chronic subdural hematoma along the left dorsolateral convexity. Midline shift of 5.8 mm to the right. This was relayed to me personally by radiology. Cervical spine without any traumatic injury. CT of the face without any acute traumatic injury. Patient has a chronic fracture of the left posterior lateral orbital wall. Laboratory workup ordered. Patient will be be transferred to a trauma center. I did discuss this with the patient. He is in agreement. He states he has fallen multiple times this week. I did reach out to his who is his POA as well as his daughter Barbi. Both of them were updated on their results and the plan. They confirmed understanding. CBC unremarkable without leukocytosis or anemia. Platelets unremarkable. Coagulation panel unremarkable. CMP relatively unremarkable. [facility] Maciel Was contacted and patient was discussed with Dr. Davis. he accepted the patient as a trauma transfer. Patient will go via local squad. Impression: 1. Subacute to chronic subdural hematoma with midline shift of 5.8 mm to the right 2. Frequent falls 3. Facial abrasion 4. Chronic orbital fracture 5. History of Parkinson's Lab Data Labs: Laboratory Results - last 24 hr 08/22/25 08:12 WBC 8.5 RBC 4.70 Hgb 14.0 Hct 42.0 MCV 89.4 MCH 29.8 MCHC 33.3 RDW Std Deviation 43.7 RDW Coeff of Nori 13.2 Plt Count 254 MPV 10.0 Immature Gran % (Auto) 0.600 Neut % (Auto) 52.7 Lymph % (Auto) 32.1 [place] % (Auto) 11.7 H Eos % (Auto) 2.1 Baso % (Auto) 0.8 Absolute Neuts (auto) 4.5 Absolute Lymphs (auto) 2.72 Nucleated RBC % 0 PT 14.3 INR 1.1 APTT 27.2 Sodium 138 Potassium 4.1 Chloride 102 Carbon Dioxide 25.1 Anion Gap 11 BUN 23 H Creatinine 0.91 Estim Creat Clear Calc 78.16 Est GFR (MDRD) Non-Af 85 BUN/Creatinine Ratio 25.2 H Glucose 164 H Calcium 9.2 Total Bilirubin 0.77 AST 14 ALT < 5 Alkaline Phosphatase 87 Total Protein 6.5 Albumin 3.9 Globulin 2.6 Albumin/Globulin Ratio 1.5 Radiography Diagnostic Testing: Clinical Impression(s) from Imaging Studies Facial/Sinus 08/22/25 07:27 IMPRESSION: 1. No new acute fracture. Chronic fracture of the left posterolateral orbital wall is unchanged and uncomplicated. The findings and impression of this report were called to the ordering physician, Devonte at the time of the head CT. Reading Location: [facility] Brain CT 08/22/25 07:28 IMPRESSION: Subacute to chronic subdural hematoma along the left dorsal lateral convexity. Midline shift 5.8 mm to the right. [place] Alert: Extra-axial collection as above The critical findings in the findings and impression above were relayed directly by me by telephone to Tex Whitney on 08/22/2025 at 8:05 am with readback verification. Reading Location: [facility] Cervical Spine CT 08/22/25 07:28 IMPRESSION: 1. Straightening of the normal cervical lordosis. Consider spasm. 2. Multilevel degenerative disc disease. No fracture. Reading Location: [facility] Discharge Plan Triage Chief Complaint: Fall ED Provider: Tex Whitney Dx/Rx/DC Orders Prescriptions: No Action pravastatin 80 mg tablet 80 mg PO QDAY metformin 750 mg tablet extended release 24 hr 750 mg PO QHS insulin aspart U-100 [Novolog U-100 Insulin aspart] 100 unit/mL solution See Rx Instructions .ROUTE .COMPLEX Patient Comments: Sliding scale Rx Instructions: Sliding scale Trelegy Ellipta 200-62.5-25 mcg blister with device 1 inh inhalation DAILY pantoprazole 40 mg tablet,delayed release (DR/EC) 40 mg PO DAILY cholecalciferol (vitamin D3) 25 mcg (1,000 unit) capsule 4,000 unit PO DAILY alfuzosin 10 mg tablet extended release 24 hr 10 mg PO DAILY Rx Instructions: administer after the same meal each day insulin glargine U-300 conc [Toujeo Max U-300 SoloStar] 300 unit/mL (3 mL) insulin pen 54 unit subcut DAILY finasteride 5 mg tablet 5 mg PO DAILY ropinirole 1 mg tablet 1 mg PO TID Qty: 21 0RF carbidopa-levodopa 25-100 mg tablet 2 tab PO 4X/DAY Qty: 720 0RF insulin lispro [Humalog KwikPen Insulin] 100 unit/mL insulin pen See Protocol subcut Protocol: 6. Sliding Scale Insulin Custom Condition: mg/dl range Dose/Route: Number of Units Protocol Text: Custom Sliding Scale albuterol sulfate 90 mcg/actuation HFA aerosol inhaler 2 inh inhalation Q6H PRN (Reason: shortness of breath or wheezing) aspirin [Adult Aspirin Regimen] 81 mg tablet,delayed release (DR/EC) 81 mg PO QHS budesonide [Pulmicort] 1 mg/2 mL suspension for nebulization 1 mg inhalation Q6H Patient Comments: [NO ORIGINAL SIG] propranolol 60 mg capsule,extended release 24 hr 60 mg PO QHS Qty: 90 0RF doxepin 25 mg capsule 25 mg PO QHS Qty: 90 0RF sertraline 50 mg tablet 100 mg PO QAM Qty: 60 2RF Primary Care Provider: Ja Cooley Referrals: Ja Cooley MD [Primary Care Provider, Family Practice] Print Language: Montenegrin
--- OUTSIDE RECORDS SUMMARY | 2025-08-22 08:00 | XMS RPT_ITS | CCD ---
Author Organization [facility] ion Partnership [facility] Care Team Providers Care Senior Games Technician Name Role Phone Emigdio Crump (Historic) Primary Care Prov ider Patricia Mcgowan Primary Care Provider [phone] Unavailable Primary Care Provider Daniel Mcgowan MD, Patricia Ramon Primary Care Provider BARB MORTON Attending Unavailab le JOLLIFF, PATRICIA RAMON Primary Care Unavailable SELENEBARB TUBBS Referring Unavailab le SELENE, BARB MAS Attending Unavailab le JOLLIFF, PATRICIA RAMON Primary Care Unavailable SELENEBARB Admitting Unavailab le JOLLIFF, PATRICIA TRISTEN Primary Care Unavailable SELENE, BARB MAS Attending Unavailab le SELENEBARB Referring Unavailab le JOLLIFF, PATRICIA RAMON Referring Unavailable SELENEBARB Admitting Unavailab le SELENE, BARB MAS Attending Unavailab le SELENEBARB Referring Unavailab le JOLLIFF, PATRICIA TRISTEN Primary Care Unavailable SELENEBARB TUBBS Admitting Unavailab SARAH Peace Attending Unavailable SELENEBARB TUBBS Admitting Unavailab HARPAL Brody Attending Unavailable JOLLRADHA, PATRICIA RAMON Primary Care Unavailable SELENEBARB TUBSB Referring Unavailab le SELENEBARB Attending Unavailab le JOLLIFF, PATRICIA TRISTEN Primary Care Unavailable SELENEBARB TUBBS Referring Unavailab le JOLLIFF, PATRICIA [facility] Primary Care Unavailable SELENE, BARB MAS Attending Unavailab le SELENEBARB Referring Unavailab le JOLLIFF, PATRICIA TRISTEN Primary Care Unavailable JASPREET QURESHI Attending Unavailable Ja Cooley Bourg Primary Care Provider [phone] Dr. Patricia Mcgowan Referring Provider Dr. Vladimir Sears Attending Provider Dr. Ja Cooley Primary Care Provider [phone] Dr. Silverio Amin Attending Provider Ja Cooley Bourg Primary Care Provider Ja Cooley Bourg Primary Care Provider Ja Cooley Bourg Primary Care Provider [phone] Lalo ONLINE MERCHANDISING COORDINATOR.GENERAL PARTNER, Erika K Unavailable Ja Cooley Bourg Primary Care Provider [phone] Lalo ONLINE MERCHANDISING COORDINATOR.GENERAL PARTNER, Erika K Unavailable [phone] ONLINE MERCHANDISING COORDINATOR.GENERAL PARTNER, Tatiana Unavailable PATRICIA MCGOWAN Primary Care Unavailable LIZBETH, JAYLYN Attending Unavailable GARY RUIZ Attending Unavailable LIZBETH, JAYLYN Referring Unavailable [facility], [facility] Primary Care Unavailabl e LIZBETH, JAYLYN Referring Unavailable ALEIDA RAMIREZ Attending Unavailable [facility] [place] Primary Care Unavailabl e LIZBETH, JAYLYN Attending Unavailable SCHINNER, [facility] Primary Care Unavailabl e LIZBETH, JAYLYN Attending Unavailable LIZBETH, JAYLYN Referring Unavailable SCHINNER, [facility] Primary Care Unavailabl e SCHINNER, [facility] Primary Care Unavailabl e MAINE MEDEL Attending Unavailable LIZBETH, JAYLYN Referring Unavailable SCHINNER, [facility] Primary Care Unavailabl e WILLIS RYDER Attending Unavailable LIZBETH, JAYLYN Referring Unavailable SCHINNER, [facility] Primary Care Unavailabl e WILLIS RYDER Attending Unavailable LIZBETH, JAYLYN Referring Unavailable LIZBETH, JAYLYN Referring Unavailable SCHINNER, [facility] Primary Care Unavailabl e BEBBWILLIS Attending Unavailable BEWILLIS WEEKS Attending Unavailable LIZBETH, JAYLYN Referring Unavailable SCHINNER, [facility] Primary Care Unavailabl e SCHINNER, [facility] Primary Care Unavailabl e LIZBETH, JAYLYN Referring Unavailable SCHINNER, [facility] Primary Care UnavailJAYLYN Dixon Referring Unavailable Dr. Ja Cooley Primary Care Provider Dr. Ja Cooley Referring Provider Dr. Vick Santo Attending Provider Catalino ERNANDEZ, DOOR TRIMMERCamdenC Christel Attending Provider Dr. Vick Santo Referring [...] Chet GARZA, Dr. Hickman Attending Provider [phone] Dr. Ja Cooley MD Primary Care Provider Charles MONTEJO, Dr. Diaz Emergency Provider Charles MONTEJO, Dr. Diaz Attending Provider Anastacia GARZA, Dr. Ja Deleon Primary Care Provider Colt GARZA, Dr. Kaur Attending Provider Chet GARZA, Dr. Hickman Referring Provider [phone] Chet GARZA, Dr. Hickman Referring Provider COLT GARZA, NATASHA Castro Primary Care Unavailable ANASTACIA GARZA, JA Attending Unavailable COLT GARZA, NATASHA Castro Primary Care Unavailable ANASTACIA GARZA, JA Attending Unavailable Anastacia GARZA, Dr. Ja Deleon Primary Care Provider [phone] Anastacia GARZA, Dr. Ja Deleon Referring Provider [...] Chet GARZA, Dr. Hickman Attending Provider [phone] Surya Dumont MD Attending Provider Chet GARZA, Dr. Hickman Referring Provider Iván GARZA, Dr. Matson Emergency Provider Chet GARZA, Dr. Hickman Referring Provider [phone] Iván GARZA, Dr. Matson Attending Provider [phone] Anastacia GARZA, Dr. Ja Deleon Primary Care Provider Anastacia GARZA, Dr. Ja Deleon Referring Provider Anastacia GARZA, Dr. Ja Deleon Attending Provider Colt GARZA, Dr. Kaur Referring Provider Anastacia GARZA, Dr. Ja Deleon Primary Care Provider [phone] Anastacia GARZA, Dr. Ja Deleon Referring Provider Chet GARZA, Dr. Hickman Attending Provider [phone] de Eric DO, Dr. Guardado Admit Provider Unavail able de Eric DO, Dr. Guardado Attending Provider Unav ailable de Eric DO, Dr. Guardado Other Provider Unavail able Oracio GARZA, Dr. Daphnie Ryder Attending Provider Oracio GARZA, Dr. Daphnie Ryder Other Provider Sally GARZA, Dr. Li Attending Provider Renu GARZA, Dr. Gilbert Attending Provider Dr. Maty Dial DO Emergency Provider Anastacia GARZA, Dr. Ja Deleon Primary Care Provider [phone] Dr. Joe Soto DO Emergency Provider Dr. Maty Dial DO Attending Provider Anastacia GARZA, Dr. Ja Deleon Primary Care Provider Colt GARZA, Dr. Kaur Attending Provider Shital GARZA, Dr. Elias Attending Provider Christel Dent Attending Provider Dr. Ja Cooley MD Primary Care Provider [phone] Dr. Jose Perez MD, V Attending Provider Dr. Geo Garza DO Referring Provider Unav julissa Deras MD, Dr. Cotto Emergency Provider Dr. Yadiel Deras MD Attending Provider [phone] Schinner, Ja E Primary Care Unavailable Sibyamile, Jose V Referring Unavailable Jose Perez V Attending Unavailable Dano Minor Attending Unavailable Schinner, Ja E Primary Care Unavailable Maty Dial Attending Unavailable Schinner, Ja E Primary Care Unavailable Schinner, Ja E Primary Care Unavailable Surya Dumont Attending Unavailable Silverner, Ja E Primary Care Unavailable Jose Perez V Attending Unavailable Ana, Jose V Referring Unavailable Schinner, Ja E Primary Care Unavailable Joe Soto Attending Unavailable Schinner, Ja E Primary Care Unavailable Reodica, Surya Referring Unavailable Julia Surya Attending Unavailable Geo Garza Admitting Unavailable Daphnie Narayanan Attending Unavailable Geo Garza Consulting Unavailable Schinner, Ja E Primary Care Unavailable Oracio Daphnie Britni Consulting Unavailable Schinner, Ja E [...] Gee Attending Unavailable Imer Gee Referring Unavailable Vick Santo Referring Unavailable Vick Santo Attending Unavailable Schinner, Ja E Primary Care Unavailable Schinner, Ja E Primary Care Unavailable Reodica, Surya Attending Unavailable Schinner, Ja E Primary Care Unavailable Osman Farooq Attending Unavailable Schinner, Ja E Primary Care Unavailable Estuardo Mccormack Attending Unavailable Schinner, Ja E Primary Care Unavailable Schinner, Ja E Attending Unavailable Schinner, Ja E Primary Care Unavailable SchinnerJa E Attending Unavailable Schinner, Ja E Referring Unavailable Schinner, Ja E Primary Care Unavailable SchinnerJa E Attending Unavailable Schinner, Ja E Referring Unavailable BadVick mcfarlane Attending Unavailable Schinner, Ja E Primary Care Unavailable Schinner, Ja E Primary Care Unavailable Natasha Gregory Referring Unavailable Natasha Gregory Attending Unavailable Schinner, Ja E Primary Care Unavailable Christel Bae NP Attending Unavailable Schinner, Ja E Referring Unavailable Schinner, Ja E Primary Care Unavailable Curt Isaacs Attending Unavailable Vick Santo Referring Unavailable Vick Santo Attending Unavailable Ja Cooley E Primary Care Unavailable Vick Santo Attending Unavailable Schinner, Ja E Referring Unavailable Schinner, Ja E Primary Care Unavailable Vladimir Sears Attending Unavailable Schinner, Ja E Primary Care Unavailable Geo Garza Admitting Unavailable Geo Garza Attending Unavailable Anastacia, Ja E Primary Care Unavailable Geo Garza Consulting Unavailable Daphnie Narayanan Attending Unavailable Daphnie Narayanan Consulting Unavailable Geo Garza Referring Unavailable Guillermo Zavala Attending Unavailable Schinner, Ja E Primary Care Unavailable Schpriti, Ja E Primary Care Unavailable Vick Santo Attending Unavailable Anastacia Ja E Referring Unavailable Vick Santo Attending Unavailable Schindelia, Ja E Primary Care Unavailable SchJa marcos E Referring Unavailable Vick Santo Attending Unavailable Schpriti, Ja E Primary Care Unavailable Schinner, Ja E Referring Unavailable Schinner, Ja E Primary Care Unavailable Schinner, Ja E Referring Unavailable Curt Isaacs Attending Unavailable Schinner, Ja E Referring Unavailable Schinner Ja E Attending Unavailable Schinner, Ja E Primary Care Unavailable Schinner, Ja E Primary Care Unavailable Jose Perez V Attending Unavailable Vick Santo Attending Unavailable Vick Santo Referring Unavailable Schinner, Ja E Primary Care Unavailable Schinner, Ja E Primary Care Unavailable Natasha Gregory Attending Unavailable Allergies Allergy Classification Reported Allergen(s) Allergy Type Date of Onset Reaction(s) Facility DOPamine Antagonists (3 sources) Metoclopramide Drug Allergy 03-01-20 18 Anxiety [facility] Unclassified (3 sources) Seasonal allergy Propensity to adverse reactions to substance 05-05-20 [facility] (12 sources) Metoclopramide; Translations: [METOCLOPRAMIDE HCL] Drug Allergy 10-05-20 [facility] (20 sources) Metoclopramide; Translations: [METOCLOPRAMIDE] Drug Allergy 08-25-20 Mental Status Change, Other [facility] Work Phone: Comment on above: anxiety (1 source) Metoclopramide Drug Allergy 07-12-20 [facility] Repository Medications Current Medications Medication Drug Class(es) Dates Sig (Normalized) Sig (Original) [id number] 200 actuat albuterol 0.09 mg/actuat metered dose [...] PO AT BEDTIME June 08, 2025 12:00am [facility] Start: 06-07-2013 End: 06-27-2024 Aspirin (Adult Low Dose Aspi rin) 81 mg tablet,delayed release (DR/EC) Discontinued 81 mg PO daily April 06, 2018 12:00am June 27, 2024 3:19pm End: 12-12-2022 aspirin 81 mg chewable table t Take 81 mg by mouth. 0 12/12/2022 Discontinued take 1 tablet by [facility] once daily aspirin 81 MG tablet Take 81 mg by mouth daily 0 Active Comment on above: Take 81 mg by mouth once daily. Take 81 mg by mouth. budesonide 0.5 mg/ml inhalation suspension (9 sources) Corticosteroid Start: 2024 take 1 mg [...] supplement Start: 04-12-2023 take 1 capsule by [facility] once daily Cholecalciferol (Vitamin D3) 25 mcg [...] Active 25 mg PO AT BEDTIME 90 0 July 11, 2025 10:12am nerve pain Start: 06-17-2024 End: 12-11-2024 take 1 capsule by mouth at bedtime Doxepin 25 mg capsule Discontinued 25 mg PO AT BEDTIME 90 1 July 01, 2024 4:36pm December 11, 2024 [...] take 1 puff(s) by inhalation once daily zfvwniyrlhl-wmxpcbcbd-vpcvkwba (Trelegy Ellipta) 100-62.5-25 mcg DsDv Inhale 1 puff daily . 0 Active Fluticasone-Umec lidin-Vilanter (20 sources) Sta rt: Xuitnjooriw-Ntyoezxvo-Sjmdyw er (Trelegy Ellipta) 200-62.5-25 mcg blister with [...] Solostar) 300 unit/mL (3 mL) insulin pen (8 sources) Start: 06-27-2024 Insulin Glargine U-300 Conc (Toujeo Max U-300 Solostar) 300 unit/mL (3 mL) insulin pen Active 54 U SC DAILY June 27, 2024 3:16pm diabetes 3 ml insulin lispro 100 unt/ml pen injector (8 sources) Insulin Analog Start: 06-12-2025 Insulin Lispro [...] mg PO DAILY April 12, 2022 12:00am acid reflux Comment on above: [...] capsule (20 sources) beta-Adrenergic Aravind Start: 06-08-2025 End: 07-11-2025 take 1 capsule by mouth every twenty-four hours at bedtime Propranolol 60 mg capsule,extended release 24 hr Active 60 mg PO AT BEDTIME 90 July 11, 2025 10:10am blood pressure Start: 04-11-2023 End: 05-10-2023 take 1 capsule by mouth every twenty-four hours at bedtime Propranolol 60 mg capsule,extended release 24 hr Discontinued 60 mg PO AT BEDTIME April 11, 2023 12:00am May 10, 2023 9:10pm Start: 04-11-2023 End: 06-08-2025 take 1 capsule by mouth once daily Propranolol 60 mg capsule,extended release 24 hr Discontinued 60 mg PO DAILY 90 1 March 31, 2025 9:07am June 08, 2025 [...] twice daily. sertraline 50 mg oral tablet (6 sources) Serotonin Reuptake Inhibitor Start: 07-03-2025 take 1 tablet by mouth once daily in the morning Sertraline 50 mg tablet Active 50 mg PO EVERY MORNING 30 July 03, 2025 12:00am Start: 10-23-2022 sertraline [...] 11:56am ascorbic acid 1000 mg oral capsule (20 sources) Vitamin C Start: 06-27-2024 End: 06-08-2025 [...] Comment on above: Take 1 capsule by [facility] once daily. EPINEPHrine 0.01 mg/ml [...] famotidine (PEPCID) tablet 2 0 mg fluticasone xjbdyuu-hddzewafhduh-jlgixzxqtp (TRELEGY ELLIPTA) 200-62.5-25 mcg powder inhaler (12 sources) take 1 puff(s) by inhalation once daily fluticasone xoxqygx-bkbjhmukodwp-yjebozbmcq (TRELEGY ELLIPTA) 200-62.5-25 mcg powder inhaler Inhale [...] sources) Anticholinergic Start: 04-06-2018 End: 04-11-2019 Ipratropium [place] 0.03 % spray,non-aerosol Discontinued 2 NMA INTRANASAL 2 to 3 times per day as needed April 06, 2018 12:00am April 11, 2019 11:44am Start: 04-06-2018 End: 04-11-2019 Ipratropium [place] Disconti nued 2 SPRAY INTRANASAL 2 to [...] oral tablet (1 source) Anti-epileptic Agent Start: 021 End: take 0.5 tablet by mouth once [...] injectable solution (20 sources) Vitamin B12 End: 2 cyanocobalamin, vitamin B-12, (B-12 COMPLIANCE) 1,000 mcg/mL kit by INJECTION(UNSPECIFIE D PARENTERAL ROUTES) route. 0 08/04/2022 Discontinued cyanocobalamin ( B-12) 1,000 mcg/mL injection by INJECTION(UNSPECIFIED PARENTERAL ROUTES) route. 0 Active Cyanocobalamin ( B-12 COMPLIANCE INJECTION IJ) Inject as directed Once a month 0 Active Comment on above: by INJECTION(UNSPECI FIED PARENTERAL ROUTES) route. zinc gluconate 30 mg oral tablet (20 sources) Start: 024 End: 025 take 1 [...] disturbance] 05-10-2023 Chronic Diabetes mellitus with complications (18 sources) Hypoglycemia due to type 2 diabetes [...] (primary) hypertension] Chronic Fluid and electrolyte disorders (19 sources) Dehydration; Translations: [Dehydration] Onset: 06-09-2025 06-08-2025 [...] fatigue; Translations: [Other malaise and fatigue] Onset: 08-12-2025 08-07-2023 Episodic Mood disorders (2 sources) Depressive disorder; Translations: [Depression, unspecified depression type] Chronic Mood disorders (1 source) Mood disorders; Translations: [Depression, unspecified depression type] Onset: 09-02-2022 Open wounds of head; neck; and trunk [...] abducens nerve palsy] 03-25-2024 Episodic Other fractures (20 sources) Closed fracture of two ribs; Translations: [Multiple fractures of ribs, left side, initial encounter for closed fracture] 10-20-2024 Episodic Other gastrointestinal disorders (20 sources) Dysphagia; Translations: [Dysphagia, unspecified] Episodic Other gastrointestinal disorders (2 sources) Oropharyngeal dysphagia; Translations: [Dysphagia, oropharyngeal phase] Episodic Other gastrointestinal disorders (1 source) Dysphagia, unspecified; Translations: [Dysphagia, unspecified] Onset: 08-12-2025 Episodic Other hereditary and degenerative nervous system conditions (2 sources) Essential tremor; Translations: [Essential tremor] Chronic Other injuries and conditions due to external causes (20 sources) Closed injury of head; Translations: [Unspecified injury of head, initial encounter] 02-11-2023 Episodic Other injuries and conditions due to external causes (1 source) Unspecified injury of head, initial encounter; Translations: [Unspecified injury of head, initial encounter] Onset: 07-17-2025 Episodic Other lower respiratory disease (20 sources) Cough; Translations: [Cough] 09-02-2024 Episodic Other nervous system disorders (20 sources) Polyneuropathy; Translations: [Polyneuropathy, unspecified] 05-08-2023 Chronic Other nervous system disorders (8 sources) Polyneuropathy, unspecified; Translations: [Unspecified hereditary and idiopathic peripheral neuropathy] Onset: 08-12-2025 04-11-2023 Chronic Other nervous system disorders (20 [...] mobility] 04-12-2022 Episodic Other nervous system disorders (8 sources) Unspecified abnormalities of gait and mobility; Translations: [Abnormality of gait] Onset: 08-12-2025 04-11-2023 Episodic Other nervous system disorders (18 sources) H/O: brain disorder; Translations: [Personal history [...] Onset: 06-09-2025 Chronic Other upper respiratory infections (19 sources) Acute sinusitis; Translations: [Acute sinusitis, unspecified] [...] [Insomnia, unspecified] 02-05-2022 Episodic Residual codes; unclassified (13 sources) Altered mental status; Translations: [Altered mental status, unspecified] 05-11-2025 Episodic Screening and history of mental health and substance abuse codes (19 sources) H/O: dementia; Translations: [Personal history of [...] OT EVAL Onset: 03-29-2022 Unclassified (1 source) Unspecified dementia, mild, with agitation; Translations: [Unspecified dementia, mild, with agitation] Onset: 08-12-2025 Unclassified (1 source) Cough, unspecified; Translations: [Cough, [...] fracture with malunion] Onset: 8 03-01-2018 Episodic Nonspecific chest pain (1 source) Chest pain, unspecified; Translations: [Chest pain, unspecified] Onset: 5 Episodic Other connective tissue disease (12 sources) [...] anarthria; Translations: [Dysarthria] Onset: 2 Episodic Other screening for suspected conditions (not mental disorders or infectious disease) (8 sources) Electrocardiogram abnormal; Translations: [Abnormal electrocardiogram [ECG] [EKG]] Onset: Episodic Results Test Name Value Interpretation Reference Range Facility Urine Cultureon 07-15-2025 [facility] Below infection leve l. Mixed Gram Positive Organisms [place] Count 1000-10,000 [facility] Mixed contaminants. Submit a new specimen if indicated. Normal [facility] Comment on above: Performed By: #### M 100.2200 ####[facility] [address] [place], [address] Anion gap in Serum or Plasma Ordered By: Surya Dumont on 07-12-2025 Anion gap [Moles/Vol] 13 mmol/L 5-15 [facility] BUN/creatinine ratioOrdered By: Surya Dumont on 07-12-2025 Urea nitrogen/Creatinine [Mass ratio] 20.4 mg/mg High - [facility] Basic Metabolic Profile (BMP )on 07-12-2025 BUN/CRE 20.4 RATIO High - [facility] Comment on above: Performed By: #### L 500.2500 ####[facility] [address] [place], [address] Calcium [Mass/Vol] 9.0 mg/dL Normal 7.6-11.0 [facility] Comment on above: Performed By: #### L 500.2500 ####[facility] [address] [place], [address] Chloride [Moles/Vol] 104 mmol/L Normal 98-108 [facility] Comment on above: Performed By: #### L 500.2500 ####[facility] [address] [place], [address] CO2 [Moles/Vol] 24.0 mmol/L Normal 21.0-32.0 [facility] Comment on above: Performed By: #### L 500.2500 ####[facility] [address] [place], [address] Creatinine [Mass/Vol] 1.16 mg/dL Normal 0.70-1.20 [facility] Comment on above: Performed By: #### L 500.2500 ####[facility] [address] [place], [address] ECRCL 63.51 ml/min Normal 50-250 [facility] Comment on above: Performed By: #### L 500.2500 ####[facility] [address] [place], [address] GAP 13 Normal 5-15 [facility] Comment on above: Performed By: #### L 500.2500 ####[facility] [address] [place], [address] GFR/1.73 sq M.predicted among non-blacks MDRD (S/P/Bld) [Vol rate/Area] 64 mL/min/{1.73_m2} Normal >60 [facility] Comment on above: Result Comment: mL/m in/1.73m2 CKD-EPI Creatinine Equation (2020) Performed By: #### L 500.2500 ####[facility] [address] [place], [address] Glucose [Mass/Vol] 256 mg/dL High 70-99 [facility] Comment on above: Performed By: #### L 500.2500 ####[facility] [address] [place], [address] Potassium [Moles/Vol] 4.0 mmol/L Normal 3.3-5.1 [facility] Comment on above: Performed By: #### L 500.2500 ####[facility] [address] [place], [address] Sodium [Moles/Vol] 141 mmol/L Normal 133-145 [facility] Comment on above: Performed By: #### L 500.2500 ####[facility] [address] [place], [address] Urea nitrogen [Mass/Vol] 24 mg/dL High 4-19 [facility] Comment on above: Performed By: #### L 500.9609 ####[facility] [address] [place], [address] Bilirubin Test strip Ql (U)O rdered By: Surya Dumont on 07-12-2025 Bilirubin Ql (U) Negative Negative [facility] Brain/Head without Contrasto n 07-12-2025 Brain/Head without Contrast Normal [facility] Carbon dioxide, total [Moles /volume] in Central venous bloodOrdered By: Surya Dumont on 07-12-2025 CO2 [Moles/Vol] 24.0 mmol/L 21.0-32.0 [facility] Chloride assayOrdered By: Rusty Dumont on 07-12-2025 Chloride [Moles/Vol] 104 mmol/L 98-108 [facility] Emergency Department Summary on 07-12-2025 Emergency Department Summary Normal [facility] Glomerular filtration rate ( GFR) estimation/1.73 sq m using serum, plasma, or whole bOrdered By: Surya Dumont on 07-12-2025 GFR/1.73 sq M.predicted among non-blacks MDRD (S/P/Bld) [Vol rate/Area] 64 mL/min/{1.73_m2} >60 [facility] Comment on above: mL/min/1.73m2 CKD-EP I Creatinine Equation (2020) Ketones Test strip Ql (U)Ord ered By: Surya Dumont on 07-12-2025 Ketones Ql (U) 5 mg/dl High Negative [facility] Microscopic analysis of urin e for red blood cells (RBC)Ordered By: Surya Dumont on 07-12-2025 Microscopic analysis of urine for red blood cells (RBC) 0-5 SEEN /hpf 0-5 [facility] Mucus LM Ql (Urine sed)Order ed By: Surya Dumont on 07-12-2025 Mucus Ql (Urine sed) 0 SEEN /hpf [facility] Nitrite Test strip Ql (U)Ord ered By: Surya Dumont on 07-12-2025 Nitrite Ql (U) Negative Negative [facility] Potassium measurement (mass/ volume)Ordered By: Surya Dumont on 07-12-2025 Potassium (Unsp spec) [Mass/Vol] 4.0 mmol/L 3.3-5.1 [facility] Protein Test strip Ql (U)Ord ered By: Surya Dumont on 07-12-2025 Protein Ql (U) 30 mg/dl High Negative [facility] Serum creatinine measurement (mass/volume)Ordered By: Surya Dumont on 07-12-2025 Creatinine [Mass/Vol] 1.16 mg/dL 0.70-1.20 [facility] Serum glucose measurement (m ass/volume)Ordered By: Surya Dumont on 07-12-2025 Glucose [Mass/Vol] 256 mg/dL High 70-99 [facility] Serum or plasma calcium walt urement (mass/volume)Ordered By: Surya Dumont on 07-12-2025 Calcium [Mass/Vol] 9.0 mg/dL 7.6-11.0 [facility] Serum or plasma urea nitroge n measurement (mass/volume)Ordered By: Surya Dumont on 07-12-2025 Urea nitrogen [Mass/Vol] 24 mg/dL High 4-19 [facility] Sodium levelOrdered By: Surya Dumont on 07-12-2025 Sodium [Moles/Vol] 141 mmol/L 133-145 [facility] Squamous epithelial cells de tection in urine sediment by light microscopyOrdered By: Surya Dumont on 07-12-2025 Epithelial cells.squamous LM Ql (Urine sed) 0 SEEN /hpf 0-5 [facility] Urinalysis, Completeon 07-12 RBC 0-5 SEEN Normal 0-5 [facility] Comment on above: Order Comment: CLEAN CATCH Performed By: #### L 400.0001 ####[facility] [address] [place], [place], [id number] WBC 0-5 SEEN Normal 0-5 [facility] Comment on above: Order Comment: CLEAN CATCH Performed By: #### L 400.0001 ####[facility] [address] [place], [address] BACTERIA 0 SEEN Normal None Seen [facility] Comment on above: Order Comment: CLEAN CATCH Performed By: #### L 400.0001 ####[facility] [address] [place], [address] EPI,SQUAMOUS 0 SEEN Normal 0-5 [facility] Comment on above: Order Comment: CLEAN CATCH Performed By: #### L 400.0001 ####[facility] [address] [place], [address] Mucus Ql (Urine sed) 0 SEEN Normal [facility] Comment on above: Order Comment: CLEAN CATCH Performed By: #### L 400.0001 ####[facility] [address] [place], [place], [id number] Urine clarityOrdered By: Tia Dumont on 07-12-2025 Clarity (U) Clear Clear [facility] Urine color determinationOrd ered By: Surya Dumont on 07-12-2025 Color (U) Yellow Yellow [facility] Urine glucose detectionOrder ed By: Surya Dumont on 07-12-2025 Glucose Ql (U) 1000 mg/dl High Normal [facility] Urine leukocyte esterase det ection by dipstickOrdered By: Surya Dumont on 07-12-2025 Leukocyte esterase Test strip Ql (U) Negative Negative [facility] Urine pHOrdered By: Surya zamarripa on 07-12-2025 pH (U) 6.0 [pH] 5.0 - 8.0 [facility] Urine sediment bacteria coun t by microscopy (number/high power field)Ordered By: Surya Dumont on 07-12-2025 Bacteria LM.HPF (Urine sed) [#/Area] 0 /[HPF] None Seen [facility] Urine specific gravity measu rementOrdered By: Surya Dumont on 07-12-2025 Specific gravity (U) [Rel density] 1.020 1.002-1.030 [facility] Urine urobilinogen measureme ntOrdered By: Surya Dumont on 07-12-2025 Urobilinogen Ql (U) 1 mg/dl High Normal [facility] White blood cell countOrdere d By: Surya Dumont on 07-12-2025 White blood cell count 0-5 SEEN /hpf 0-5 [facility] Brain/Head without Contrasto n 07-07-2025 Brain/Head without Contrast Normal [facility] Emergency Department Summary on 07-07-2025 Emergency Department Summary Normal [facility] Knee 4 or More Viewson 07-07 Knee 4 or More Views Normal [facility] Spine Cervical without Contr ason 07-07-2025 Spine Cervical without Contras Normal [facility] Bilirubin Test strip Ql (U)O rdered By: Ja Cooley on 07-05-2025 Bilirubin Ql (U) Negative Negative [facility] Ketones Test strip Ql (U)Ord ered By: Ja Cooley on 07-05-2025 Ketones Ql (U) 5 mg/dl High Negative [facility] Microscopic analysis of urin e for red blood cells (RBC)Ordered By: Ja Cooley on 07-05-2025 Microscopic analysis of urine for red blood cells (RBC) 0 SEEN /hpf 0-5 [facility] Mucus LM Ql (Urine sed)Order ed By: Ja Cooley on 07-05-2025 Mucus Ql (Urine sed) 0 SEEN /hpf [facility] Nitrite Test strip Ql (U)Ord ered By: Ja Cooley on 07-05-2025 Nitrite Ql (U) Negative Negative [facility] Protein Test strip Ql (U)Ord ered By: Ja Cooley on 07-05-2025 Protein Ql (U) 15 mg/dl High Negative [facility] Squamous epithelial cells de tection in urine sediment by light microscopyOrdered By: Ja Cooley on 07-05-2025 Epithelial cells.squamous LM Ql (Urine sed) 0 SEEN /hpf 0-5 [facility] Urine clarityOrdered By: Kwabena Cooley on 07-05-2025 Clarity (U) Clear Clear [facility] Urine color determinationOrd ered By: Ja Cooley on 07-05-2025 Color (U) Yellow Yellow [facility] Urine cultureOrdered By: Kwabena Cooley on 07-05-2025 Bacteria identified Cx Nom (U) Culture exhibits no growth. [facility] Urine glucose detectionOrder ed By: Ja Cooley on 07-05-2025 Glucose Ql (U) Normal mg/dl Normal [facility] Urine leukocyte esterase det ection by dipstickOrdered By: Ja Cooley on 07-05-2025 Leukocyte esterase Test strip Ql (U) Negative Negative [facility] Urine pHOrdered By: Ja marcos on 07-05-2025 pH (U) 7.0 [pH] 5.0 - 8.0 [facility] Urine sediment bacteria coun t by microscopy (number/high power field)Ordered By: Ja Cooley on 07-05-2025 Bacteria LM.HPF (Urine sed) [#/Area] 0 /[HPF] None Seen [facility] Urine specific gravity measu rementOrdered By: Ja Cooley on 07-05-2025 Specific gravity (U) [Rel density] 1.010 1.002-1.030 [facility] Urine urobilinogen measureme ntOrdered By: Ja Cooley on 07-05-2025 Urobilinogen Ql (U) 4 mg/dl High Normal [facility] White blood cell countOrdere d By: Ja Cooley on 07-05-2025 White blood cell count 0 SEEN /hpf 0-5 [facility] Cardiology Visit Reporton Cardiology Visit Report Normal [facility] Neurology Visit Reporton Neurology Visit Report Normal [facility] Surgery Visit Reporton 06-24 Surgery Visit Report Normal [facility] Brain/Head without Contrasto n 06-19-2025 Brain/Head without Contrast Normal [facility] Emergency Department Summary on 06-19-2025 Emergency Department Summary Normal [facility] 12 Lead EKGon 06-12-2025 12 Lead EKG Normal [facility] Absolute lymphocyte countOrd ered By: Maty Dial on 06-12-2025 Lymphocytes Auto (Unsp spec) [#/Vol] 3.14 10*3/uL 0.83-4.51 [facility] Absolute neutrophil countOrd ered By: Maty Dial on 06-12-2025 Neutrophils (Bld) [#/Vol] 5.2 10*3/uL 2.0-7.7 [facility] Anion gap in Serum or Plasma Ordered By: Maty Dial on 06-12-2025 Anion gap [Moles/Vol] 10 mmol/L 5-15 [facility] Automated lymphocyte count a s percentage of total leukocytesOrdered By: Maty Dial on 06-12-2025 Lymphocytes/100 WBC Auto (Unsp spec) 32.8 % 19-41 [facility] BUN/creatinine ratioOrdered By: Maty Dial on 06-12-2025 Urea nitrogen/Creatinine [Mass ratio] 25.6 mg/mg High 10- [facility] Basic Metabolic Profile (BMP )on 06-12-2025 BUN/CRE 25.6 RATIO High - [facility] Comment on above: Performed By: #### L 500.2500, L100.0100 ####[facility] [address] [place], [address] Calcium [Mass/Vol] 9.1 mg/dL Normal 7.6-11.0 [facility] Comment on above: Performed By: #### L 500.2500, L100.0100 ####[facility] [address] [place], [address] Chloride [Moles/Vol] 102 mmol/L Normal 98-108 [facility] Comment on above: Performed By: #### L 500.2500, L100.0100 ####[facility] [address] [place], [address] CO2 [Moles/Vol] 26.6 mmol/L Normal 21.0-32.0 [facility] Comment on above: Performed By: #### L 500.2500, L100.0100 ####[facility] [address] [place], [address] Creatinine [Mass/Vol] 0.94 mg/dL Normal 0.70-1.20 [facility] Comment on above: Performed By: #### L 500.2500, L100.0100 ####[facility] [address] [place], [address] ECRCL 79.57 ml/min Normal 50-250 [facility] Comment on above: Performed By: #### L 500.2500, L100.0100 ####[facility] [address] [place], [address] GAP 10 Normal 5-15 [facility] Comment on above: Performed By: #### L 500.2500, L100.0100 ####[facility] [address] [place], [address] GFR/1.73 sq M.predicted among non-blacks MDRD (S/P/Bld) [Vol rate/Area] 82 mL/min/{1.73_m2} Normal >60 [facility] Comment on above: Result Comment: mL/m in/1.73m2 CKD-EPI Creatinine Equation (2020) Performed By: #### L 500.2500, L100.0100 ####[facility] [address] [place], [address] Glucose [Mass/Vol] 202 mg/dL High 70-99 [facility] Comment on above: Performed By: #### L 500.2500, L100.0100 ####[facility] [address] [place], [address] Potassium [Moles/Vol] 4.3 mmol/L Normal 3.3-5.1 [facility] Comment on above: Performed By: #### L 500.2500, L100.0100 ####[facility] [address] [place], [address] Sodium [Moles/Vol] 139 mmol/L Normal 133-145 [facility] Comment on above: Performed By: #### L 500.2500, L100.0100 ####[facility] [address] [place], [address] Urea nitrogen [Mass/Vol] 24 mg/dL High 4-19 [facility] Comment on above: Performed By: #### L 500.2500, L100.0100 ####[facility] [address] [place], [address] Basophil percentageOrdered B y: Maty Dial on 06-12-2025 Basophils/100 WBC (Bld) 0.6 % 0-1 [facility] Bedside Glucoseon 06-12-2025 FINGERSTICK GLU 186 mg/dL High 74-106 [facility] Comment on above: Result Comment: GARY REYES OF PATIENT CARE PER NURSING PROTOCOL Performed By: #### L 501.080 ####[facility] [address] [place], [address] Bilirubin Test strip Ql (U)O rdered By: Maty Dial on 06-12-2025 Bilirubin Ql (U) Negative Negative [facility] Brain/Head without Contrasto n 06-12-2025 Brain/Head without Contrast Normal [facility] CBC W/Diff, Automatedon 05-21 Absolute Lymph 3.14 X10 3/uL Normal 0.83-4.51 [facility] Comment on above: Performed By: #### L 500.2500, L100.0100 ####[facility] [address] [place], [address] Absolute Neut 5.2 X10 3/uL Normal 2.0-7.7 [facility] Comment on above: Performed By: #### L 500.2500, L100.0100 ####[facility] [address] [place], [address] Basophils/100 WBC (Bld) 0.6 % Normal 0-1 [facility] Comment on above: Performed By: #### L 500.2500, L100.0100 ####[facility] [address] [place], [address] Eosinophils/100 WBC (Bld) 1.9 % Normal 0-5 [facility] Comment on above: Performed By: #### L 500.2500, L100.0100 ####[facility] [address] [place], [address] Erythrocyte distribution width (RBC) [Ratio] 12.9 % Normal 11.6-14.6 [facility] Comment on above: Performed By: #### L 500.2500, L100.0100 ####[facility] [address] [place], [address] Hematocrit (Bld) [Volume fraction] 41.3 % Normal 40-54 [facility] Comment on above: Performed By: #### L 500.2500, L100.0100 ####[facility] [address] [place], [address] Hemoglobin (Bld) [Mass/Vol] 13.6 g/dL Normal 13.0-16.5 [facility] Comment on above: Performed By: #### L 500.2500, L100.0100 ####[facility] [address] [place], [address] IG% 0.600 Normal 0.0-0.9 [facility] Comment on above: Result Comment: IG% - Immature Granulocytes (promyelocytes, myelocytes andmetamyelocytes) > 1% indicates that a LEFT SHIFT is Present. Performed By: #### L 500.2500, L100.0100 ####[facility] [address] [place], [address] Lymphocytes/100 WBC (Bld) 32.8 % Normal 19-41 [facility] Comment on above: Performed By: #### L 500.2500, L100.0100 ####[facility] [address] [place], [address] MCH (RBC) [Entitic mass] 30.2 pg Normal 27.0-32.0 [facility] Comment on above: Performed By: #### L 500.2500, L100.0100 ####[facility] [address] [place], [address] MCHC (RBC) [Mass/Vol] 32.9 g/dL Normal 32-36 [facility] Comment on above: Performed By: #### L 500.2500, L100.0100 ####[facility] [address] [place], [address] MCV (RBC) [Entitic vol] 91.8 fL Normal 80-94 [facility] Comment on above: Performed By: #### L 500.2500, L100.0100 ####[facility] [address] [place], [address] Monocytes/100 WBC (Bld) 9.4 % Normal 0-10 [facility] Comment on above: Performed By: #### L 500.2500, L100.0100 ####[facility] [address] [place], [address] Neutrophils/100 WBC (Bld) 54.7 % Normal 47-70 [facility] Comment on above: Performed By: #### L 500.2500, L100.0100 ####[facility] [address] [place], [address] Nucleated RBC (Bld) [#/Vol] 0 10*3/uL Normal 0-5 [facility] Comment on above: Performed By: #### L 500.2500, L100.0100 ####[facility] [address] [place], [address] Platelet mean volume (Bld) [Entitic vol] 10.4 fL Normal 6.2-12.0 [facility] Comment on above: Performed By: #### L 500.2500, L100.0100 ####[facility] [address] [place], [address] Platelets (Bld) [#/Vol] 243 10*3/uL Normal 150-450 [facility] Comment on above: Performed By: #### L 500.2500, L100.0100 ####[facility] [address] [place], [address] RBC (Bld) [#/Vol] 4.50 10*6/uL Low 4.6-6.2 [facility] Comment on above: Performed By: #### L 500.2500, L100.0100 ####[facility] [address] [place], [address] RDW SD 42.7 fl Normal 35.1-43.9 [facility] Comment on above: Performed By: #### L 500.2500, L100.0100 ####[facility] [address] [place], [address] WBC (Bld) [#/Vol] 9.6 10*3/uL Normal 4.4-11.0 [facility] Comment on above: Performed By: #### L 500.2500, L100.0100 ####[facility] [address] [place], [address] Carbon dioxide, total [Moles /volume] in Central venous bloodOrdered By: Maty Dial on 06-12-2025 CO2 [Moles/Vol] 26.6 mmol/L 21.0-32.0 [facility] Chloride assayOrdered By: Ignacio Dial on 06-12-2025 Chloride [Moles/Vol] 102 mmol/L 98-108 [facility] Emergency Department Summary on 06-12-2025 Emergency Department Summary Normal [facility] Eosinophil percentageOrdered By: Maty Dial on 06-12-2025 Eosinophils/100 WBC (Bld) 1.9 % 0-5 [facility] Erythrocyte distribution wid th ratioOrdered By: Maty Dial on 06-12-2025 Erythrocyte distribution width (RBC) [Ratio] 12.9 % 11.6-14.6 [facility] Erythrocyte distribution wid th standard deviationOrdered By: Maty Dial on 06-12-2025 Erythrocyte distribution width (RBC) [Ratio] 42.7 fl 35.1-43.9 [facility] Glomerular filtration rate ( GFR) estimation/1.73 sq m using serum, plasma, or whole bOrdered By: Maty Dial on 06-12-2025 GFR/1.73 sq M.predicted among non-blacks MDRD (S/P/Bld) [Vol rate/Area] 82 mL/min/{1.73_m2} >60 [facility] Comment on above: mL/min/1.73m2 CKD-EP I Creatinine Equation (2020) [facility]ucose [facility] deOrdered By: Maty Dial on 06-12-2025 Glucose [Mass/Vol] 186 mg/dL High 74-106 [facility] Comment on above: MANAGEMENT OF PATIEN T CARE PER NURSING PROTOCOL Hematocrit Auto (Bld) [Volum e fraction]Ordered By: Maty Dial on 06-12-2025 Hematocrit (Bld) [Volume fraction] 41.3 % 40-54 [facility] Hemoglobin measurementOrdere d By: Maty Dial on 06-12-2025 Hemoglobin (Bld) [Mass/Vol] 13.6 g/dL 13.0-16.5 [facility] Immature granulocytes/100 WB C Auto (Bld)Ordered By: Maty Dial on 06-12-2025 Immature granulocytes/100 WBC (Bld) 0.600 % 0.0-0.9 [facility] Comment on above: IG% - Immature Granu locytes (promyelocytes, myelocytes and metamyelocytes) > 1% indicates that a LEFT SHIFT is Present. Ketones Test strip Ql (U)Ord ered By: Maty Dial on 06-12-2025 Ketones Ql (U) 15 mg/dl High Negative [facility] MCV (mean corpuscular volume ) determinationOrdered By: Maty Dial on 06-12-2025 MCV (RBC) [Entitic vol] 91.8 fL 80-94 [facility] Mean corpuscular hemoglobin (MCH) determinationOrdered By: Maty Dial on 06-12-2025 MCH (RBC) [Entitic mass] 30.2 pg 27.0-32.0 [facility] Mean corpuscular hemoglobin concentration (MCHC) determinationOrdered By: Maty Dial on 06-12-2025 MCHC (RBC) [Mass/Vol] 32.9 g/dL 32-36 [facility] Mean platelet volume determi nationOrdered By: Maty Dial on 06-12-2025 Platelet mean volume (Bld) [Entitic vol] 10.4 fL 6.2-12.0 [facility] Microscopic analysis of urin e for red blood cells (RBC)Ordered By: Maty Dial on 06-12-2025 Microscopic analysis of urine for red blood cells (RBC) 0 SEEN /hpf 0-5 [facility] Monocyte percentageOrdered B y: Maty Dial on 06-12-2025 Monocytes/100 WBC (Bld) 9.4 % 0-10 [facility] Mucus LM Ql (Urine sed)Order ed By: Maty Dial on 06-12-2025 Mucus Ql (Urine sed) 0 SEEN /hpf [facility] Neutrophil percentageOrdered By: Maty Dial on 06-12-2025 Neutrophils/100 WBC (Bld) 54.7 % 47-70 [facility] Nitrite Test strip Ql (U)Ord ered By: Maty Dial on 06-12-2025 Nitrite Ql (U) Negative Negative [facility] Nucleated red blood cell per centageOrdered By: Maty Dial on 06-12-2025 Nucleated RBC/100 WBC (Bld) [Ratio] 0 % 0-5 [facility] Platelet countOrdered By: Ignacio Dial on 06-12-2025 Platelets (Bld) [#/Vol] 243 10*3/uL 150-450 [facility] Potassium measurement (mass/ volume)Ordered By: Maty Dial on 06-12-2025 Potassium (Unsp spec) [Mass/Vol] 4.3 mmol/L 3.3-5.1 [facility] Protein Test strip Ql (U)Ord ered By: Maty Dial on 06-12-2025 Protein Ql (U) 15 mg/dl High Negative [facility] RBC Auto (Bld) [#/Vol]Ordere d By: Maty Dial on 06-12-2025 RBC (Bld) [#/Vol] 4.50 10*6/uL Low 4.6-6.2 [facility] Serum creatinine measurement (mass/volume)Ordered By: Maty Dial on 06-12-2025 Creatinine [Mass/Vol] 0.94 mg/dL 0.70-1.20 [facility] Serum glucose measurement (m ass/volume)Ordered By: Maty Dial on 06-12-2025 Glucose [Mass/Vol] 202 mg/dL High 70-99 [facility] Serum or plasma calcium walt urement (mass/volume)Ordered By: Maty Dial on 06-12-2025 Calcium [Mass/Vol] 9.1 mg/dL 7.6-11.0 [facility] Serum or plasma urea nitroge n measurement (mass/volume)Ordered By: Maty Dial on 06-12-2025 Urea nitrogen [Mass/Vol] 24 mg/dL High 4-19 [facility] Sodium levelOrdered By: Chidi Dial on 06-12-2025 Sodium [Moles/Vol] 139 mmol/L 133-145 [facility] Spine Cervical without Contr ason 06-12-2025 Spine Cervical without Contras Normal [facility] Squamous epithelial cells de tection in urine sediment by light microscopyOrdered By: Maty Dial on 06-12-2025 Epithelial cells.squamous LM Ql (Urine sed) 0-5 SEEN /hpf 0-5 [facility] Urinalysis, Completeon 06-12 WBC 0-5 SEEN Normal 0-5 [facility] Comment on above: Order Comment: CLEAN CATCH Performed By: #### L 400.0001 ####[facility] [address] [place], [place], [id number] EPI,SQUAMOUS 0-5 SEEN Normal 0-5 [facility] Comment on above: Order Comment: CLEAN CATCH Performed By: #### L 400.0001 ####[facility] [address] [place], [place], [id number] BACTERIA 0 SEEN Normal None Seen [facility] Comment on above: Order Comment: CLEAN CATCH Performed By: #### L 400.0001 ####[facility] [address] [place], [address] Mucus Ql (Urine sed) 0 SEEN Normal [facility] Comment on above: Order Comment: CLEAN CATCH Performed By: #### L 400.0001 ####[facility] [address] [place], [address] RBC 0 SEEN Normal 0-5 [facility] Comment on above: Order Comment: CLEAN CATCH Performed By: #### L 400.0001 ####[facility] [address] [place], [address] Urine clarityOrdered By: Michelle Dial on 06-12-2025 Clarity (U) Clear Clear [facility] Urine color determinationOrd ered By: Maty Dial on 06-12-2025 Color (U) Yellow Yellow [facility] Urine glucose detectionOrder ed By: Maty Dial on 06-12-2025 Glucose Ql (U) Normal mg/dl Normal [facility] Urine leukocyte esterase det ection by dipstickOrdered By: Maty Dial on 06-12-2025 Leukocyte esterase Test strip Ql (U) 25 /ul High Negative [facility] Urine pHOrdered By: Maty rolle on 06-12-2025 pH (U) 6.0 [pH] 5.0 - 8.0 [facility] Urine sediment bacteria coun t by microscopy (number/high power field)Ordered By: Maty Dial on 06-12-2025 Bacteria LM.HPF (Urine sed) [#/Area] 0 /[HPF] None Seen [facility] Urine specific gravity measu rementOrdered By: Maty Dial on 06-12-2025 Specific gravity (U) [Rel density] 1.025 1.002-1.030 [facility] Urine urobilinogen measureme ntOrdered By: Maty Dial on 06-12-2025 Urobilinogen Ql (U) Normal mg/dl Normal [facility] White blood cell (WBC) count Ordered By: Maty Dial on 06-12-2025 WBC (Bld) [#/Vol] 9.6 10*3/uL 4.4-11.0 [facility] White blood cell countOrdere d By: Maty Dial on 06-12-2025 White blood cell count 0-5 SEEN /hpf 0-5 [facility] Absolute lymphocyte countOrd ered By: Geo Reyes on 06-09-2025 Lymphocytes Auto (Unsp spec) [#/Vol] 3.83 10*3/uL 0.83-4.51 [facility] Absolute neutrophil countOrd ered By: Geo Reyes on 06-09-2025 Neutrophils (Bld) [#/Vol] 4.2 10*3/uL 2.0-7.7 [facility] Anion gap in Serum or Plasma Ordered By: Geo Reyes on 06-09-2025 Anion gap [Moles/Vol] 10 mmol/L 5-15 [facility] Automated lymphocyte count a s percentage of total leukocytesOrdered By: Geo Reyes on 06-09-2025 Lymphocytes/100 WBC Auto (Unsp spec) 40.9 % 19-41 [facility] BUN/creatinine ratioOrdered By: Geo Reyes on 06-09-2025 Urea nitrogen/Creatinine [Mass ratio] 21.8 mg/mg High 10-20 [facility] Basophil percentageOrdered B y: Geo Reyes on 06-09-2025 Basophils/100 WBC (Bld) 0.9 % 0-1 [facility] Bedside Glucoseon 06-09-2025 FINGERSTICK GLU 157 mg/dL High 74-106 [facility] Comment on above: Result Comment: GARY ANGELESENT OF PATIENT CARE PER NURSING PROTOCOL Performed By: #### L 501.080 ####[facility] [address] [facility] [address] FINGERSTICK GLU 149 mg/dL High 74-106 [facility] Comment on above: Result Comment: GARY ANGELESENT OF PATIENT CARE PER NURSING PROTOCOL Performed By: #### L 501.080 ####[facility] [address] [place], [address] FINGERSTICK GLU 81 mg/dL Normal 74-106 [facility] Comment on above: Result Comment: GARY REYES OF PATIENT CARE PER NURSING PROTOCOL Performed By: #### L 501.080 ####[facility] [address] [place], [address] Bilirubin, totalOrdered By: Geo Reyes on 06-09-2025 Bilirubin [Mass/Vol] 0.57 mg/dL 0.00-1.30 [facility] CBC W/Diff, Automatedon 05-21 Absolute Lymph 3.83 X10 3/uL Normal 0.83-4.51 [facility] Comment on above: Performed By: #### L 100.0100, L500.4050, L500.4100, L501.2300 ####[facility] [address] [place], [address] Absolute Neut 4.2 X10 3/uL Normal 2.0-7.7 [facility] Comment on above: Performed By: #### L 100.0100, L500.4050, L500.4100, L501.2300 ####[facility] [address] [place], [address] Basophils/100 WBC (Bld) 0.9 % Normal 0-1 [facility] Comment on above: Performed By: #### L 100.0100, L500.4050, L500.4100, L501.2300 ####[facility] [address] [place], [address] Eosinophils/100 WBC (Bld) 2.1 % Normal 0-5 [facility] Comment on above: Performed By: #### L 100.0100, L500.4050, L500.4100, L501.2300 ####[facility] [address] [place], [address] Erythrocyte distribution width (RBC) [Ratio] 12.9 % Normal 11.6-14.6 [facility] Comment on above: Performed By: #### L 100.0100, L500.4050, L500.4100, L501.2300 ####[facility] [address] [place], [address] Hematocrit (Bld) [Volume fraction] 39.9 % Low 40-54 [facility] Comment on above: Performed By: #### L 100.0100, L500.4050, L500.4100, L501.2300 ####[facility] [address] [place], [address] Hemoglobin (Bld) [Mass/Vol] 13.3 g/dL Normal 13.0-16.5 [facility] Comment on above: Performed By: #### L 100.0100, L500.4050, L500.4100, L501.2300 ####[facility] [address] [place], [address] IG% 0.300 Normal 0.0-0.9 [facility] Comment on above: Result Comment: IG% - Immature Granulocytes (promyelocytes, myelocytes andmetamyelocytes) > 1% indicates that a LEFT SHIFT is Present. Performed By: #### L 100.0100, L500.4050, L500.4100, L501.2300 ####[facility] [address] [place], [address] Lymphocytes/100 WBC (Bld) 40.9 % Normal 19-41 [facility] Comment on above: Performed By: #### L 100.0100, L500.4050, L500.4100, L501.2300 ####[facility] [address] [place], [address] MCH (RBC) [Entitic mass] 30.4 pg Normal 27.0-32.0 [facility] Comment on above: Performed By: #### L 100.0100, L500.4050, L500.4100, L501.2300 ####[facility] [address] [place], [address] MCHC (RBC) [Mass/Vol] 33.3 g/dL Normal 32-36 [facility] Comment on above: Performed By: #### L 100.0100, L500.4050, L500.4100, L501.2300 ####[facility] [address] [place], [address] MCV (RBC) [Entitic vol] 91.3 fL Normal 80-94 [facility] Comment on above: Performed By: #### L 100.0100, L500.4050, L500.4100, L501.2300 ####[facility] [address] [place], [address] Monocytes/100 WBC (Bld) 11.5 % High 0-10 [facility] Comment on above: Performed By: #### L 100.0100, L500.4050, L500.4100, L501.2300 ####[facility] [address] [place], [address] Neutrophils/100 WBC (Bld) 44.3 % Low 47-70 [facility] Comment on above: Performed By: #### L 100.0100, L500.4050, L500.4100, L501.2300 ####[facility] [address] [place], [address] Nucleated RBC (Bld) [#/Vol] 0 10*3/uL Normal 0-5 [facility] Comment on above: Performed By: #### L 100.0100, L500.4050, L500.4100, L501.2300 ####[facility] [address] [place], [address] Platelet mean volume (Bld) [Entitic vol] 10.8 fL Normal 6.2-12.0 [facility] Comment on above: Performed By: #### L 100.0100, L500.4050, L500.4100, L501.2300 ####[facility] [address] [place], [address] Platelets (Bld) [#/Vol] 243 10*3/uL Normal 150-450 [facility] Comment on above: Performed By: #### L 100.0100, L500.4050, L500.4100, L501.2300 ####[facility] [address] [place], [address] RBC (Bld) [#/Vol] 4.37 10*6/uL Low 4.6-6.2 [facility] Comment on above: Performed By: #### L 100.0100, L500.4050, L500.4100, L501.2300 ####[facility] [address] [place], [address] RDW SD 42.3 fl Normal 35.1-43.9 [facility] Comment on above: Performed By: #### L 100.0100, L500.4050, L500.4100, L501.2300 ####[facility] [address] [place], [address] WBC (Bld) [#/Vol] 9.4 10*3/uL Normal 4.4-11.0 [facility] Comment on above: Performed By: #### L 100.0100, L500.4050, L500.4100, L501.2300 ####[facility] [address] [place], [address] Calculated very low density lipoprotein (VLDL) cholesterol measurementOrdered By: Geo Reyes on 06-09-2025 Calculated very low density lipoprotein (VLDL) cholesterol measurement 15 mg/dL 5-40 [facility] Carbon dioxide, total [Moles /volume] in Central venous bloodOrdered By: Geo Reyes on 06-09-2025 CO2 [Moles/Vol] 23.9 mmol/L 21.0-32.0 [facility] Chloride assayOrdered By: Dov Reyes on 06-09-2025 Chloride [Moles/Vol] 108 mmol/L 98-108 [facility] Comprehensive Metabolic Prof ilon 06-09-2025 Albumin [Mass/Vol] 3.7 g/dL Normal 3.4-4.8 [facility] Comment on above: Performed By: #### L 100.0100, L500.4050, L500.4100, L501.2300 ####[facility] [address] [place], [address] Albumin/Globulin [Mass ratio] 1.6 {ratio} Normal 0.9-2.4 [facility] Comment on above: Performed By: #### L 100.0100, L500.4050, L500.4100, L501.2300 ####[facility] [address] [place], [address] ALK PHOS 76 U/L Normal 40-129 [facility] Comment on above: Performed By: #### L 100.0100, L500.4050, L500.4100, L501.2300 ####[facility] [address] [place], [address] ALT [Catalytic activity/Vol] U/L Normal <=46 [facility] Comment on above: Performed By: #### L 100.0100, L500.4050, L500.4100, L501.2300 ####[facility] [address] [place], [address] AST [Catalytic activity/Vol] 15 U/L Normal <=37 [facility] Comment on above: Performed By: #### L 100.0100, L500.4050, L500.4100, L501.2300 ####[facility] [address] [place], [address] Bilirubin [Mass/Vol] 0.57 mg/dL Normal 0.00-1.30 [facility] Comment on above: Performed By: #### L 100.0100, L500.4050, L500.4100, L501.2300 ####[facility] [address] [place], [address] BUN/CRE 21.8 RATIO High 10-20 [facility] Comment on above: Performed By: #### L 100.0100, L500.4050, L500.4100, L501.2300 ####[facility] [address] [place], [address] Calcium [Mass/Vol] 8.7 mg/dL Normal 7.6-11.0 [facility] Comment on above: Performed By: #### L 100.0100, L500.4050, L500.4100, L501.2300 ####[facility] [address] [place], [address] Chloride [Moles/Vol] 108 mmol/L Normal 98-108 [facility] Comment on above: Performed By: #### L 100.0100, L500.4050, L500.4100, L501.2300 ####[facility] [address] [place], [address] CO2 [Moles/Vol] 23.9 mmol/L Normal 21.0-32.0 [facility] Comment on above: Performed By: #### L 100.0100, L500.4050, L500.4100, L501.2300 ####[facility] [address] [place], [address] Creatinine [Mass/Vol] 0.77 mg/dL Normal 0.70-1.20 [facility] Comment on above: Performed By: #### L 100.0100, L500.4050, L500.4100, L501.2300 ####[facility] [address] [place], [address] ECRCL 92.13 ml/min Normal 50-250 [facility] Comment on above: Performed By: #### L 100.0100, L500.4050, L500.4100, L501.2300 ####[facility] [address] [place], [address] GAP 10 Normal 5-15 [facility] Comment on above: Performed By: #### L 100.0100, L500.4050, L500.4100, L501.2300 ####[facility] [address] [place], [address] GFR/1.73 sq M.predicted among non-blacks MDRD (S/P/Bld) [Vol rate/Area] 91 mL/min/{1.73_m2} Normal >60 [facility] Comment on above: Result Comment: mL/m in/1.73m2 CKD-EPI Creatinine Equation (2020) Performed By: #### L 100.0100, L500.4050, L500.4100, L501.2300 ####[facility] [address] [place], [address] Globulin (S) [Mass/Vol] 2.3 g/dL Normal 2.2-4.2 [facility] Comment on above: Performed By: #### L 100.0100, L500.4050, L500.4100, L501.2300 ####[facility] [address] [place], [address] Glucose [Mass/Vol] 67 mg/dL Low 70-99 [facility] Comment on above: Performed By: #### L 100.0100, L500.4050, L500.4100, L501.2300 ####[facility] [address] [place], [address] Potassium [Moles/Vol] 3.8 mmol/L Normal 3.3-5.1 [facility] Comment on above: Performed By: #### L 100.0100, L500.4050, L500.4100, L501.2300 ####[facility] [address] [place], [address] Sodium [Moles/Vol] 142 mmol/L Normal 133-145 [facility] Comment on above: Performed By: #### L 100.0100, L500.4050, L500.4100, L501.2300 ####[facility] [address] [place], [address] T PROT 5.9 g/dL Normal 5.9-8.4 [facility] Comment on above: Performed By: #### L 100.0100, L500.4050, L500.4100, L501.2300 ####[facility] [address] [place], [address] Urea nitrogen [Mass/Vol] 17 mg/dL Normal 4-19 [facility] Comment on above: Performed By: #### L 100.0100, L500.4050, L500.4100, L501.2300 ####[facility] [address] [place], [address] Discharge Instructionon -2 Discharge Instruction Normal [facility] Duplex ultrasound of carotid artery reportOrdered By: Guillermo Zavala on 06-09-2025 Study report [facility] [address] [place] [address] Carotid Duplex Ultrasound 06/09/25 0824 MR#: [id number] Acct: [id number] Name: LUIS ARMANDO GRIFFITH Rep #:[id number] 25 : 1945 79 From: Guillermo Nicolas Attending Dr: Dr. Daphnie Narayanan MD Status: ADM SANDHYA Ordering Dr: Geo Garza DO Date: 06/08/25 Location: [facility] Sex: M C Admitted: 06/08/25 Reason For [...] the left vertebral artery. Procedure Carotid Duplex 12059. This is a Carotid Duplex examination using B-mode, color flow and specral Doppler. Exam performed portable in patient room. VL/Carotid Duplex Ultrasound Interpretation Summary Mild (<50%) stenosis right extracranial internal carotid. Mild (<50%) stenosis left extracranial internal carotid. Patent and antegrade vertebrals bilaterally. Ordering Physician: Geo Garza Referring Physician: Ja Cooley Performed By: Thuy Dong, RDCS, RVT 06/09/25 1105 Date _ Guillermo Zavala MD CC: Dr. Geo Garza DO; Dr. Ja Cooley MD; Dr. Daphnie Narayanan MD ~ Date Dictated: 06/09/25823 Date Transcribed: 06/09/251104 Corporate Communications Manager: Signed [facility] Work Phone: Eosinophil percentageOrdered By: Geo Reyes on 06-09-2025 Eosinophils/100 WBC (Bld) 2.1 % 0-5 [facility] Erythrocyte distribution wid th ratioOrdered By: Geo Reyes on 06-09-2025 Erythrocyte distribution width (RBC) [Ratio] 12.9 % 11.6-14.6 [facility] Erythrocyte distribution wid th standard deviationOrdered By: Geo Reyes on 06-09-2025 Erythrocyte distribution width (RBC) [Ratio] 42.3 fl 35.1-43.9 [facility] Folate [Mass/volume] in Seru m or PlasmaOrdered By: Geo Reyes on 06-09-2025 Folate [Mass/Vol] 11.40 ng/mL 4.60-34.80 [facility] Folates,Serum (Folic Acid)on 06-09-2025 FOLATES,SERUM 11.40 ng/mL Normal 4.60-34.80 [facility] Comment on above: Order Comment: N Performed By: #### L 505.5000, L506.0200, L501.9520, L501.5200 ####[facility] [address] [place], [place], [address] Glomerular filtration rate ( GFR) estimation/1.73 sq m using serum, plasma, or whole bOrdered By: Geo Reyes on 06-09-2025 GFR/1.73 sq M.predicted among non-blacks MDRD (S/P/Bld) [Vol rate/Area] 91 mL/min/{1.73_m2} >60 [facility] Comment on above: mL/min/1.73m2 CKD-EP I Creatinine Equation (2020) [facility] deOrdered By: Daphnie Narayanan on 06-09-2025 Glucose [Mass/Vol] 157 mg/dL High 74-106 [facility] Comment on above: MANAGEMENT OF PATIEN T CARE PER NURSING PROTOCOL Hematocrit Auto (Bld) [Volum e fraction]Ordered By: Geo Reyes on 06-09-2025 Hematocrit (Bld) [Volume fraction] 39.9 % Low 40-54 [facility] Hemoglobin measurementOrdere d By: Geo Reyes on 06-09-2025 Hemoglobin (Bld) [Mass/Vol] 13.3 g/dL 13.0-16.5 [facility] Immature granulocytes/100 WB C Auto (Bld)Ordered By: Geo Reyes on 06-09-2025 Immature granulocytes/100 WBC (Bld) 0.300 % 0.0-0.9 [facility] Comment on above: IG% - Immature Granu locytes (promyelocytes, myelocytes and metamyelocytes) > 1% indicates that a LEFT SHIFT is Present. L499.0043on 06-09-2025 Trop T High Sen 15 ng/L Normal <=22 [facility] Comment on above: Performed By: #### L 499.0043 ####[facility] [address] [place], [address] LDL calc ser/plasOrdered By: Geo Reyes on 06-09-2025 Cholesterol in LDL [Mass/Vol] 47 mg/dL [facility] Comment on above: Eudwzjxutm=153-047 m g/dL & Higher Iklz=020 mg/dL or greater Laboratory - Chemistry and C hemistry - challengeOrdered By: Geo Reyes on 06-09-2025 AST [Catalytic activity/Vol] 15 U/L <38 [facility] Lipid Profileon 06-09-2025 CHOL:HDL 2.24 Normal [facility] Comment on above: Performed By: #### L 100.0100, L500.4050, L500.4100, L501.2300 ####[facility] [address] [place], [address] Cholesterol [Mass/Vol] 113 mg/dL Normal <=200 [facility] Comment on above: Result Comment: Chol esterol level, Desirable <200 mg/dLBorderline high cholesterol 200-239 mg/dLHigh cholesterol >=240 mg/dLRecommendations of the NCEP Adult Treatment Panel for thefollowing risk-cutoff thresholds for the [place] [facility]. Performed By: #### L 100.0100, L500.4050, L500.4100, L501.2300 ####[facility] [address] [place], [address] Cholesterol in HDL [Mass/Vol] 50 mg/dL Normal [facility] Comment on above: Result Comment: Makayla onal Cholesterol Education Program (NCEP) guidelines:<40 mg/dL: Low HDL-cholesterol (major risk factor for CHD)>= 60 mg/dL: High HDL-cholesterol (negative risk factor forCHD)HDL-cholesterol is affected by a number of factors, e.g.smoking, exercise, hormones, sex and age. Performed By: #### L 100.0100, L500.4050, L500.4100, L501.2300 ####[facility] [address] [place], [address] Cholesterol in LDL [Mass/Vol] 47 mg/dL Normal [facility] Comment on above: Result Comment: Bord buveko=104-693 mg/dL Higher Bcpx=358 mg/dL or greater Performed By: #### L 100.0100, L500.4050, L500.4100, L501.2300 ####[facility] [address] [place], [address] Cholesterol in VLDL [Mass/Vol] 15 mg/dL Normal 5-40 [facility] Comment on above: Performed By: #### L 100.0100, L500.4050, L500.4100, L501.2300 ####[facility] [address] [place], [place], [address] Triglyceride [Mass/Vol] 76 mg/dL Normal [facility] Comment on above: Result Comment: The drugs N-Acetylcysteine and Metamizole may falselydepress this assay.Normal range: <150 mg/dLBorderline High: 150-199 mg/dLHigh: 200-499 mg/dLVery High: >500 mg/dL Performed By: #### L 100.0100, L500.4050, L500.4100, L501.2300 ####[facility] [address] [place], [place], [address] MCV (mean corpuscular volume ) determinationOrdered By: Geo Reyes on 06-09-2025 MCV (RBC) [Entitic vol] 91.3 fL 80-94 [facility] Mean corpuscular hemoglobin (MCH) determinationOrdered By: Geo Reyes on 06-09-2025 MCH (RBC) [Entitic mass] 30.4 pg 27.0-32.0 [facility] Mean corpuscular hemoglobin concentration (MCHC) determinationOrdered By: Geo Reyes on 06-09-2025 MCHC (RBC) [Mass/Vol] 33.3 g/dL 32-36 [facility] Mean platelet volume determi nationOrdered By: Geo Reyes on 06-09-2025 Platelet mean volume (Bld) [Entitic vol] 10.8 fL 6.2-12.0 [facility] Monocyte percentageOrdered B y: Geo Reyes on 06-09-2025 Monocytes/100 WBC (Bld) 11.5 % High 0-10 [facility] Neutrophil percentageOrdered By: Geo Reyes on 06-09-2025 Neutrophils/100 WBC (Bld) 44.3 % Low 47-70 [facility] Nucleated red blood cell per centageOrdered By: Geo Reyes on 06-09-2025 Nucleated RBC/100 WBC (Bld) [Ratio] 0 % 0-5 [facility] Phosphoruson 06-09-2025 Phosphate [Mass/Vol] 3.8 mg/dL Normal 2.7-4.5 [facility] Comment on above: Performed By: #### L 100.0100, L500.4050, L500.4100, L501.2300 ####[facility] [address] [place], [address] Platelet countOrdered By: Dov Reyes on 06-09-2025 Platelets (Bld) [#/Vol] 243 10*3/uL 150-450 [facility] Potassium measurement (mass/ volume)Ordered By: Geo Reyes on 06-09-2025 Potassium (Unsp spec) [Mass/Vol] 3.8 mmol/L 3.3-5.1 [facility] RBC Auto (Bld) [#/Vol]Ordere d By: Geo Reyes on 06-09-2025 RBC (Bld) [#/Vol] 4.37 10*6/uL Low 4.6-6.2 [facility] Screening total cholesterol/ high density lipoprotein (HDL) cholesterol ratioOrdered By: Geo Reyes on 06-09-2025 Cholesterol.total/Cholest gris in HDL [Mass ratio] 2.24 {ratio} [facility] Serum creatinine measurement (mass/volume)Ordered By: Geo Reyes on 06-09-2025 Creatinine [Mass/Vol] 0.77 mg/dL 0.70-1.20 [facility] Serum globulin measurementOr dered By: Geo Reyes on 06-09-2025 Globulin (S) [Mass/Vol] 2.3 g/dL 2.2-4.2 [facility] Serum glucose measurement (m ass/volume)Ordered By: Geo Reyes on 06-09-2025 Glucose [Mass/Vol] 67 mg/dL Low 70-99 [facility] Serum or plasma alanine max otransferase (ALT) measurementOrdered By: Geo Reyes on 06-09-2025 ALT [Catalytic activity/Vol] U/L <47 [facility] Serum or plasma albumin walt urement (mass/volume)Ordered By: Geo Reyes on 06-09-2025 Albumin [Mass/Vol] 3.7 g/dL 3.4-4.8 [facility] Serum or plasma albumin/glob ulin mass ratioOrdered By: Geo Reyes on 06-09-2025 Albumin/Globulin [Mass ratio] 1.6 {ratio} 0.9-2.4 [facility] Serum or plasma alkaline sarah sphatase measurementOrdered By: Geo Reyes on 06-09-2025 ALP [Catalytic activity/Vol] 76 U/L 40-129 [facility] Serum or plasma calcium walt urement (mass/volume)Ordered By: Geo Reyes on 06-09-2025 Calcium [Mass/Vol] 8.7 mg/dL 7.6-11.0 [facility] Serum or plasma cholesterol in HDL measurement (mass/volume)Ordered By: Geo Reyes on 06-09-2025 Cholesterol in HDL [Mass/Vol] 50 mg/dL >40 [facility] Comment on above: National Cholesterol Education Program (NCEP) guidelines:<40 mg/dL: Low HDL-cholesterol (major risk factor for CHD)>= 60 mg/dL: High HDL-cholesterol (negative risk factor for CHD)HDL-cholesterol is affected by a number of factors, e.g. smoking, exercise, hormones, sex and age. Serum or plasma cholesterol measurement (mass/volume)Ordered By: Geo Reyes on 06-09-2025 Cholesterol [Mass/Vol] 113 mg/dL <201 [facility] Comment on above: Cholesterol level, D esirable <200 mg/dLBorderline high cholesterol 200-239 mg/dLHigh cholesterol >=240 mg/dLRecommendations of the NCEP Adult Treatment Panel for the following risk-cutoff thresholds for the [place]. Serum or plasma urea nitroge n measurement (mass/volume)Ordered By: Geo Reyes on 06-09-2025 Urea nitrogen [Mass/Vol] 17 mg/dL 4-19 [facility] Sodium levelOrdered By: Raman Reyes on 06-09-2025 Sodium [Moles/Vol] 142 mmol/L 133-145 [facility] Total proteinOrdered By: Rick Reyes on 06-09-2025 Protein [Mass/Vol] 5.9 g/dL 5.9-8.4 [facility] Triglycerides measurementOrd ered By: Geo Reyes on 06-09-2025 Triglyceride [Mass/Vol] 76 mg/dL <199 [facility] Comment on above: The drugs N-Acetylcy steine and Metamizole may falsely depress this assay. Normal range: <150 mg/dLBorderline High: 150-199 mg/dLHigh: 200-499 mg/dLVery High: >500 mg/dL Vitamin B12on 06-09-2025 Cobalamin (Vitamin B12) [Mass/Vol] 230 pg/mL Normal 180-914 [facility] Comment on above: Performed By: #### L 503.0106 ####[facility] [address] [place], [place], [id number] White blood cell (WBC) count Ordered By: Geo Reyes on 06-09-2025 WBC (Bld) [#/Vol] 9.4 10*3/uL 4.4-11.0 [facility] 12 Lead EKGon 06-08-2025 12 Lead EKG Normal [facility] Absolute lymphocyte countOrd ered By: Joe Soto on 06-08-2025 Lymphocytes Auto (Unsp spec) [#/Vol] 3.30 10*3/uL 0.83-4.51 [facility] Absolute neutrophil countOrd ered By: Joe Soto on 06-08-2025 Neutrophils (Bld) [#/Vol] 4.8 10*3/uL 2.0-7.7 [facility] Alcohol, Blood (Medical)-Ser umon 06-08-2025 SERUM ETOH < 10.1 Normal <=10.0 [facility] Comment on above: Result Comment: This test is for medical purposes only. The legaldefinition of intoxication varies according to local law. Performed By: #### L 501.9100 ####[facility] [address] [place], [place], [id number] Amphetamine detection with 1 000 ng/mL as cutoffOrdered By: Geo Reyes on 06-08-2025 Amphetamines Screen method >1000 ng/mL Ql (U) Negative < 200 ng/mL [facility] Anion gap in Serum or Plasma Ordered By: Joe Soto on 07-20-2025 Anion gap [Moles/Vol] 12 mmol/L 5-15 [facility] Automated lymphocyte count a s percentage of total leukocytesOrdered By: Remus Charles on 06-08-2025 Lymphocytes/100 WBC Auto (Unsp spec) 36.0 % [facility] BUN/creatinine ratioOrdered By: Remus Ungur on 06-08-2025 Urea nitrogen/Creatinine [Mass ratio] 26.0 mg/mg High 09-08 [facility] Basic Metabolic Profile (BMP )on 06-08-2025 BUN/CRE 26.0 RATIO High 09-08 [facility] Comment on above: Order Comment: REDRA W. PREVIOUS SPECIMEN REJECTED DUE TOHEMOLYSIS. 06/08/251853 Bo Elias. Performed By: #### L 501.4021, L500.2500 ####[facility] [address] [place], [address] Calcium [Mass/Vol] 9.0 mg/dL Normal 7.6-11.0 [facility] Comment on above: Order Comment: REDRA W. PREVIOUS SPECIMEN REJECTED DUE TOHEMOLYSIS. 06/08/251853 Bo Eric Elias. Performed By: #### L 501.4021, L500.2500 ####[facility] [address] [place], [address] Chloride [Moles/Vol] 103 mmol/L Normal 98-108 [facility] Comment on above: Order Comment: REDRA W. PREVIOUS SPECIMEN REJECTED DUE TOHEMOLYSIS. 06/08/251853 Bo Elias. Performed By: #### L 501.4021, L500.2500 ####[facility] [address] [place], [address] CO2 [Moles/Vol] 24.5 mmol/L Normal 21.0-32.0 [facility] Comment on above: Order Comment: REDRA W. PREVIOUS SPECIMEN REJECTED DUE TOHEMOLYSIS. 06/08/251853 Bo Elias. Performed By: #### L 501.4021, L500.2500 ####[facility] [address] [place], [address] Creatinine [Mass/Vol] 0.85 mg/dL Normal 0.70-1.20 [facility] Comment on above: Order Comment: REDRA W. PREVIOUS SPECIMEN REJECTED DUE TOHEMOLYSIS. 06/08/251853 Bo Elias. Performed By: #### L 501.4021, L500.2500 ####[facility] [address] [place], [address] ECRCL 87.49 ml/min Normal 50-250 [facility] Comment on above: Order Comment: REDRA W. PREVIOUS SPECIMEN REJECTED DUE TOHEMOLYSIS. 06/08/251853 Bo Elias. Performed By: #### L 501.4021, L500.2500 ####[facility] [address] [place], [address] GAP 12 Normal 5-15 [facility] Comment on above: Order Comment: REDRA W. PREVIOUS SPECIMEN REJECTED DUE TOHEMOLYSIS. 06/08/251853 Bo Elias. Performed By: #### L 501.4021, L500.2500 ####[facility] [address] [place], [address] GFR/1.73 sq M.predicted among non-blacks MDRD (S/P/Bld) [Vol rate/Area] 88 mL/min/{1.73_m2} Normal >60 [facility] Comment on above: Order Comment: REDRA W. PREVIOUS SPECIMEN REJECTED DUE TOHEMOLYSIS. 06/08/251853 Bo Elias. Result Comment: mL/m in/1.73m2 CKD-EPI Creatinine Equation (2020) Performed By: #### L 501.4021, L500.2500 ####[facility] [address] [place], [address] Glucose [Mass/Vol] 224 mg/dL High 70-99 [facility] Comment on above: Order Comment: REDRA W. PREVIOUS SPECIMEN REJECTED DUE TOHEMOLYSIS. 06/08/251853 Bo Elias. Performed By: #### L 501.4021, L500.2500 ####[facility] [address] [place], [address] Potassium [Moles/Vol] 4.0 mmol/L Normal 3.3-5.1 [facility] Comment on above: Order Comment: REDRA W. PREVIOUS SPECIMEN REJECTED DUE TOHEMOLYSIS. 06/08/251853 Bo Eric Elias. Performed By: #### L 501.4021, L500.2500 ####[facility] [address] [place], [address] Sodium [Moles/Vol] 139 mmol/L Normal 133-145 [facility] Comment on above: Order Comment: REDRA W. PREVIOUS SPECIMEN REJECTED DUE TOHEMOLYSIS. 06/08/251853 Bo Elisa. Performed By: #### L 501.4021, L500.2500 ####[facility] [address] [place], [address] Urea nitrogen [Mass/Vol] 22 mg/dL High - [facility] Comment on above: Order Comment: REDRA W. PREVIOUS SPECIMEN REJECTED DUE TOHEMOLYSIS. 06/08/251853 Bo Reyes Curt. Performed By: #### L 501.4021, L500.2500 ####[facility] [address] [place], [address] BUN Normal 03-08 [facility] Comment on above: Result Comment: This specimen has been REJECTED due to Laboratory criteria:Hemolyzed.DAFNE (ED) has been notified of need of recollection.06/08/251852 Bo Eric White Performed By: #### L 500.2500, L100.0100 ####[facility] [address] [place], [address] BUN/CRE Normal 09-08 [facility] Comment on above: Result Comment: This specimen has been REJECTED due to Laboratory criteria:Hemolyzed.DAFNE (ED) has been notified of need of recollection.06/08/251852 Bo L White Performed By: #### L 500.2500, L100.0100 ####[facility] [address] [place], [address] Calcium Normal 7.6-11.0 [facility] Comment on above: Result Comment: This specimen has been REJECTED due to Laboratory criteria:Hemolyzed.DAFNE (ED) has been notified of need of recollection.06/08/251852 Bo L White Performed By: #### L 500.2500, L100.0100 ####[facility] [address] [place], [address] CL Normal 98-108 [facility] Comment on above: Result Comment: This specimen has been REJECTED due to Laboratory criteria:Hemolyzed.DAFNE (ED) has been notified of need of recollection.06/08/251852 Bo L White Performed By: #### L 500.2500, L100.0100 ####[facility] [address] [place], [address] CO2 Normal 21.0-32.0 [facility] Comment on above: Result Comment: This specimen has been REJECTED due to Laboratory criteria:Hemolyzed.DAFNE (ED) has been notified of need of recollection.06/08/251852 Bo L White Performed By: #### L 500.2500, L100.0100 ####[facility] [address] [place], [address] CREAT,SERUM Normal 0.70-1.20 [facility] Comment on above: Result Comment: This specimen has been REJECTED due to Laboratory criteria:Hemolyzed.DAFNE (ED) has been notified of need of recollection.06/08/251852 Bo L White Performed By: #### L 500.2500, L100.0100 ####[facility] [address] [place], [address] eGFR Normal >60 [facility] Comment on above: Result Comment: This specimen has been REJECTED due to Laboratory criteria:Hemolyzed.DAFNE (ED) has been notified of need of recollection.06/08/251852 Bo L White Performed By: #### L 500.2500, L100.0100 ####[facility] [address] [place], [address] GAP Normal 5-15 [facility] Comment on above: Result Comment: This specimen has been REJECTED due to Laboratory criteria:Hemolyzed.DAFNE (ED) has been notified of need of recollection.06/08/251852 Bo L White Performed By: #### L 500.2500, L100.0100 ####[facility] [address] [place], [address] GLU Normal 70-99 [facility] Comment on above: Result Comment: This specimen has been REJECTED due to Laboratory criteria:Hemolyzed.DAFNE (ED) has been notified of need of recollection.06/08/251852 Bo L White Performed By: #### L 500.2500, L100.0100 ####[facility] [address] [place], [address] Potassium Normal 3.3-5.1 [facility] Comment on above: Result Comment: This specimen has been REJECTED due to Laboratory criteria:Hemolyzed.DAFNE (ED) has been notified of need of recollection.06/08/251852 Bo L White Performed By: #### L 500.2500, L100.0100 ####[facility] [address] [place], [address] Basic Metabolic Profile (BMP) Normal 133-145 [facility] Comment on above: Result Comment: This specimen has been REJECTED due to Laboratory criteria:Hemolyzed.DAFNE (ED) has been notified of need of recollection.06/08/251852 Bo L White Performed By: #### L 500.2500, L100.0100 ####[facility] [address] [place], [address] Basophil percentageOrdered B y: Joe Soto on 06-08-2025 Basophils/100 WBC (Bld) 0.9 % 0-1 [facility] Bilirubin Test strip Ql (U)O rdered By: Joe Soto on 06-08-2025 Bilirubin Ql (U) Negative Negative [facility] Brain/Head without Contrasto n 06-08-2025 Brain/Head without Contrast Normal [facility] CBC W/Diff, Automatedon 05-21 Absolute Lymph 3.30 X10 3/uL Normal 0.83-4.51 [facility] Comment on above: Performed By: #### L 500.2500, L100.0100 ####[facility] [address] [place], [address] Absolute Neut 4.8 X10 3/uL Normal 2.0-7.7 [facility] Comment on above: Performed By: #### L 500.2500, L100.0100 ####[facility] [address] [place], [address] Basophils/100 WBC (Bld) 0.9 % Normal 0-1 [facility] Comment on above: Performed By: #### L 500.2500, L100.0100 ####[facility] [address] [place], [address] Eosinophils/100 WBC (Bld) 1.9 % Normal 0-5 [facility] Comment on above: Performed By: #### L 500.2500, L100.0100 ####[facility] [address] [place], [address] Erythrocyte distribution width (RBC) [Ratio] 13.2 % Normal 11.6-14.6 [facility] Comment on above: Performed By: #### L 500.2500, L100.0100 ####[facility] [address] [place], [address] Hematocrit (Bld) [Volume fraction] 41.6 % Normal 40-54 [facility] Comment on above: Performed By: #### L 500.2500, L100.0100 ####[facility] [address] [place], [address] Hemoglobin (Bld) [Mass/Vol] 14.4 g/dL Normal 13.0-16.5 [facility] Comment on above: Performed By: #### L 500.2500, L100.0100 ####[facility] [address] [place], [address] IG% 0.800 Normal 0.0-0.9 [facility] Comment on above: Result Comment: IG% - Immature Granulocytes (promyelocytes, myelocytes andmetamyelocytes) > 1% indicates that a LEFT SHIFT is Present. Performed By: #### L 500.2500, L100.0100 ####[facility] [address] [place], [address] Lymphocytes/100 WBC (Bld) 36.0 % Normal 19-41 [facility] Comment on above: Performed By: #### L 500.2500, L100.0100 ####[facility] [address] [place], [address] MCH (RBC) [Entitic mass] 30.8 pg Normal 27.0-32.0 [facility] Comment on above: Performed By: #### L 500.2500, L100.0100 ####[facility] [address] [place], [address] MCHC (RBC) [Mass/Vol] 34.6 g/dL Normal 32-36 [facility] Comment on above: Performed By: #### L 500.2500, L100.0100 ####[facility] [address] [place], [address] MCV (RBC) [Entitic vol] 89.1 fL Normal 80-94 [facility] Comment on above: Performed By: #### L 500.2500, L100.0100 ####[facility] [address] [place], [address] Monocytes/100 WBC (Bld) 8.5 % Normal 0-10 [facility] Comment on above: Performed By: #### L 500.2500, L100.0100 ####[facility] [address] [place], [address] Neutrophils/100 WBC (Bld) 51.9 % Normal 47-70 [facility] Comment on above: Performed By: #### L 500.2500, L100.0100 ####[facility] [address] [place], [address] Nucleated RBC (Bld) [#/Vol] 0 10*3/uL Normal 0-5 [facility] Comment on above: Performed By: #### L 500.2500, L100.0100 ####[facility] [address] [place], [address] Platelet mean volume (Bld) [Entitic vol] 10.4 fL Normal 6.2-12.0 [facility] Comment on above: Performed By: #### L 500.2500, L100.0100 ####[facility] [address] [place], [address] Platelets (Bld) [#/Vol] 261 10*3/uL Normal 150-450 [facility] Comment on above: Performed By: #### L 500.2500, L100.0100 ####[facility] [address] [place], [address] RBC (Bld) [#/Vol] 4.67 10*6/uL Normal 4.6-6.2 [facility] Comment on above: Performed By: #### L 500.2500, L100.0100 ####[facility] [address] [place], [address] RDW SD 42.2 fl Normal 35.1-43.9 [facility] Comment on above: Performed By: #### L 500.2500, L100.0100 ####[facility] [address] [place], [address] WBC (Bld) [#/Vol] 9.2 10*3/uL Normal 4.4-11.0 [facility] Comment on above: Performed By: #### L 500.2500, L100.0100 ####[facility] [address] [place], [address] Carbon dioxide, total [Moles /volume] in Central venous bloodOrdered By: Joe Soto on 06-08-2025 CO2 [Moles/Vol] 24.5 mmol/L 21.0-32.0 [facility] Carotid Duplex Ultrasoundon 06-08-2025 Carotid Duplex Ultrasound Normal [facility] Chest 1 View (Portable)on Chest 1 View (Portable) Normal [facility] Chloride assayOrdered By: Darien Soto on 06-08-2025 Chloride [Moles/Vol] 103 mmol/L 98-108 [facility] Echo Complete W/ Contraston 06-08-2025 Echo Complete W/ Contrast Normal [facility] Emergency Department Summary on 06-08-2025 Emergency Department Summary Normal [facility] Eosinophil percentageOrdered By: Joe Soto on 06-08-2025 Eosinophils/100 WBC (Bld) 1.9 % 0-5 [facility] Erythrocyte distribution wid th ratioOrdered By: Joe Soto on 06-08-2025 Erythrocyte distribution width (RBC) [Ratio] 13.2 % 11.6-14.6 [facility] Erythrocyte distribution wid th standard deviationOrdered By: Joe Soto on 06-08-2025 Erythrocyte distribution width (RBC) [Ratio] 42.2 fl 35.1-43.9 [facility] Glomerular filtration rate ( GFR) estimation/1.73 sq m using serum, plasma, or whole bOrdered By: Joe Soto on 06-08-2025 GFR/1.73 sq M.predicted among non-blacks MDRD (S/P/Bld) [Vol rate/Area] 88 mL/min/{1.73_m2} >60 [facility] Comment on above: mL/min/1.73m2 CKD-EP I Creatinine Equation (2020) H AND P Exam - Hospitaliston 06-08-2025 H&P Exam - Hospitalist Normal [facility] Hematocrit Auto (Bld) [Volum e fraction]Ordered By: [facility] S[facility] on 06-08-2025 Hematocrit (Bld) [Volume fraction] 41.6 % 40-54 [facility] Hemoglobin measurementOrdere d By: Orlando Charles on 06-08-2025 Hemoglobin (Bld) [Mass/Vol] 14.4 g/dL 13.0-16.5 [facility] Immature granulocytes/100 WB C Auto (Bld)Ordered By: [facility] S[facility] on 06-08-2025 Immature granulocytes/100 WBC (Bld) 0.800 % 0.0-0.9 [facility] Comment on above: IG% - Immature Granu locytes (promyelocytes, myelocytes and metamyelocytes) > 1% indicates that a LEFT SHIFT is Present. Ketones Test strip Ql (U)Ord ered By: [facility] S[facility] on 06-08-2025 Ketones Ql (U) 5 mg/dl High Negative [facility] L499.0042on 06-08-2025 Trop T High Sen 14 ng/L Normal <=22 [facility] Comment on above: Performed By: #### L 499.0042 ####[facility] [address] [place], [address] L501.4021on 06-08-2025 Trop T High Sen 17 ng/L Normal <=22 [facility] Comment on above: Order Comment: CR Page PREVIOUS SPECIMEN REJECTED DUE TOHEMOLYSIS. 06/08/251853 Bo Elias. Performed By: #### L 501.4021, L500.2500 ####[facility] [address] [place], [address] MCV (mean corpuscular volume ) determinationOrdered By: Joe Soto on 06-08-2025 MCV (RBC) [Entitic vol] 89.1 fL 80-94 [facility] Magnesiumon 06-08-2025 Magnesium [Mass/Vol] 1.6 mg/dL Normal 1.5-2.2 [facility] Comment on above: Performed By: #### L 505.5000, L506.0200, L501.9520, L501.5200 ####[facility] [address] [place], [address] Magnesium measurement (mass/ volume)Ordered By: Geo Reyes on 06-08-2025 Magnesium (Unsp spec) [Mass/Vol] 1.6 mg/dL 1.5-2.2 [facility] Mean corpuscular hemoglobin (MCH) determinationOrdered By: Joe Soto on 06-08-2025 MCH (RBC) [Entitic mass] 30.8 pg 27.0-32.0 [facility] Mean corpuscular hemoglobin concentration (MCHC) determinationOrdered By: Joe Soto on 06-08-2025 MCHC (RBC) [Mass/Vol] 34.6 g/dL 32-36 [facility] Mean platelet volume determi nationOrdered By: Joe Soto on 06-08-2025 Platelet mean volume (Bld) [Entitic vol] 10.4 fL 6.2-12.0 [facility] Microscopic analysis of urin e for red blood cells (RBC)Ordered By: Joe Soto on 06-08-2025 Microscopic analysis of urine for red blood cells (RBC) 0-5 SEEN /hpf 0-5 [facility] Monocyte percentageOrdered B y: Joe Soto on 06-08-2025 Monocytes/100 WBC (Bld) 8.5 % 0-10 [facility] Mucus LM Ql (Urine sed)Order ed By: Joe Soto on 06-08-2025 Mucus Ql (Urine sed) 2+ /hpf [facility] Neutrophil percentageOrdered By: Joe Soto on 06-08-2025 Neutrophils/100 WBC (Bld) 51.9 % 47-70 [facility] Nitrite Test strip Ql (U)Ord ered By: Joe Soto on 06-08-2025 Nitrite Ql (U) Negative Negative [facility] No Panel InformationOrdered By: Geo Reyes on 06-08-2025 Urine Buprenorphine Qualitative Negative < 200 ng/mL [facility] Urine Oxycodone Screen Negative < 100 ng/mL [facility] Nucleated red blood cell per centageOrdered By: Joe Soto on 06-08-2025 Nucleated RBC/100 WBC (Bld) [Ratio] 0 % 0-5 [facility] Platelet countOrdered By: Darien Soto on 06-08-2025 Platelets (Bld) [#/Vol] 261 10*3/uL 150-450 [facility] Potassium measurement (mass/ volume)Ordered By: Joe Soto on 06-08-2025 Potassium (Unsp spec) [Mass/Vol] 4.0 mmol/L 3.3-5.1 [facility] Protein Test strip Ql (U)Ord ered By: Joe Soto on 06-08-2025 Protein Ql (U) 15 mg/dl High Negative [facility] Quantitative urine opiates m easurementOrdered By: Geo Reyes on 06-08-2025 Opiates Ql (U) Negative < 300 ng/mL [facility] RBC Auto (Bld) [#/Vol]Ordere d By: Joe Soto on 06-08-2025 RBC (Bld) [#/Vol] 4.67 10*6/uL 4.6-6.2 [facility] Screening urine fentanyl gabriele surementOrdered By: Geo Reyes on 06-08-2025 fentaNYL Screen Ql (U) Negative [facility] Serum creatinine measurement (mass/volume)Ordered By: Joe Soto on 06-08-2025 Creatinine [Mass/Vol] 0.85 mg/dL 0.70-1.20 [facility] Serum glucose measurement (m ass/volume)Ordered By: Joe Soto on 06-08-2025 Glucose [Mass/Vol] 224 mg/dL High 70-99 [facility] Serum or plasma calcium walt urement (mass/volume)Ordered By: Joe Soto on 06-08-2025 Calcium [Mass/Vol] 9.0 mg/dL 7.6-11.0 [facility] Serum or plasma ethanol walt urement (mass/volume)Ordered By: Geo Reyes on 06-08-2025 Ethanol [Mass/Vol] mg/dL <10.1 [facility] Comment on above: This test is for med ical purposes only. The legal definition of intoxication varies according to local law. Serum or plasma urea nitroge n measurement (mass/volume)Ordered By: Joe Soto on 06-08-2025 Urea nitrogen [Mass/Vol] 22 mg/dL High 4-19 [facility] Sodium levelOrdered By: Robert Soto on 06-08-2025 Sodium [Moles/Vol] 139 mmol/L 133-145 [facility] Spine Cervical without Contr ason 06-08-2025 Spine Cervical without Contras Normal [facility] Squamous epithelial cells de tection in urine sediment by light microscopyOrdered By: Joe Soto on 06-08-2025 Epithelial cells.squamous LM Ql (Urine sed) 0-5 SEEN /hpf 0-5 [facility] TSH DL <= 0.005 mIU/L QnOrde red By: Geo Reyes on 06-08-2025 TSH Qn 2.200 uIU/mL 0.300-4.200 [facility] Thyroid Stim Hormone (TSH)on 06-08-2025 TSH 2.200 uIU/mL Normal 0.300-4.200 [facility] Comment on above: Performed By: #### L 505.5000, L506.0200, L501.9520, L501.5200 ####[facility] [address] [place], [place], [id number] Troponin T.cardiac [Mass/vol ume] in Serum or Plasma by High sensitivity methodOrdered By: Joe Soto on 06-08-2025 Troponin T.cardiac High sensitivity method [Mass/Vol] 15 ng/L <22 [facility] Troponin T.cardiac High sensitivity method [Mass/Vol] 14 ng/L <22 [facility] Troponin T.cardiac High sensitivity method [Mass/Vol] 17 ng/L <22 [facility] Urinalysis, Completeon 06-08 BACTERIA RARE Normal None Seen [facility] Comment on above: Order Comment: CLEAN CATCH Performed By: #### L 400.0001 ####[facility] [address] [place], [address] EPI,SQUAMOUS 0-5 SEEN Normal 0-5 [facility] Comment on above: Order Comment: CLEAN CATCH Performed By: #### L 400.0001 ####[facility] [address] [place], [address] Mucus Ql (Urine sed) 2+ /hpf Normal [facility] Comment on above: Order Comment: CLEAN CATCH Performed By: #### L 400.0001 ####[facility] [address] [place], [address] RBC 0-5 SEEN Normal 0-5 [facility] Comment on above: Order Comment: CLEAN CATCH Performed By: #### L 400.0001 ####[facility] [address] [place], [address] WBC 0-5 SEEN Normal 0-5 [facility] Comment on above: Order Comment: CLEAN CATCH Performed By: #### L 400.0001 ####[facility] [address] [place], [address] Urine Drug Screen (VISTA)on 06-08-2025 AMPHETAMINES Negative Normal <1000 ng/mL [facility] Comment on above: Order Comment: U Performed By: #### L 505.5000, L506.0200, L501.9520, L501.5200 ####[facility] [address] [place], [address] BARBITIURATES Negative Normal < 200 ng/mL [facility] Comment on above: Order Comment: U Performed By: #### L 505.5000, L506.0200, L501.9520, L501.5200 ####[facility] [facility] [address] [place], [address] BENZODIAZIPINE Negative Normal < 200 ng/mL [facility] Comment on above: Order Comment: U Performed By: #### L 505.5000, L506.0200, L501.9520, L501.5200 ####[facility] [address] [place], [address] BUP Ur Drug Scr Negative Normal < 200 ng/mL [facility] Comment on above: Order Comment: U Performed By: #### L 505.5000, L506.0200, L501.9520, L501.5200 ####[facility] [address] [place], [address] COCAINE Negative Normal < 300 ng/mL [facility] Comment on above: Order Comment: U Performed By: #### L 505.5000, L506.0200, L501.9520, L501.5200 ####[facility] [address] [place], [address] Fentanyl Negative Normal [facility] Comment on above: Order Comment: U Performed By: #### L 505.5000, L506.0200, L501.9520, L501.5200 ####[facility] [address] [place], [address] METHADONE Negative Normal < 300 ng/mL [facility] Comment on above: Order Comment: U Performed By: #### L 505.5000, L506.0200, L501.9520, L501.5200 ####[facility] [address] [place], [address] OPIATES Negative Normal < 300 ng/mL [facility] Comment on above: Order Comment: U Performed By: #### L 505.5000, L506.0200, L501.9520, L501.5200 ####[facility] [address] [place], [address] OXYCODONE Negative Normal < 100 ng/mL [facility] Comment on above: Order Comment: U Performed By: #### L 505.5000, L506.0200, L501.9520, L501.5200 ####[facility] [address] [place], [address] PCP Negative Normal < 25 ng/mL [facility] Comment on above: Order Comment: U Performed By: #### L 505.5000, L506.0200, L501.9520, L501.5200 ####[facility] [address] [place], [address] THC Negative Normal < 50 ng/mL [facility] Comment on above: Order Comment: U Performed By: #### L 505.5000, L506.0200, L501.9520, L501.5200 ####[facility] [address] [place], [address] Urine benzodiazepine levelOr dered By: Geo Reyes on 06-08-2025 Benzodiazepines Ql (U) Negative < 200 ng/mL [facility] Urine clarityOrdered By: Yulisa Soto on 06-08-2025 Clarity (U) Clear Clear [facility] Urine cocaine levelOrdered B y: Geo Reyes on 06-08-2025 Cocaine Ql (U) Negative < 300 ng/mL [facility] Urine color determinationOrd ered By: Joe Soto on 06-08-2025 Color (U) Yellow Yellow [facility] Urine noork-5-cphkvbrrkbpciq abinol (THC) measurementOrdered By: Geo Reyes on 06-08-2025 Cannabinoids Screen Ql (U) Negative < 50 ng/mL [facility] Urine glucose detectionOrder ed By: Joe Soto on 06-08-2025 Glucose Ql (U) 50 mg/dl High Normal [facility] Urine leukocyte esterase det ection by dipstickOrdered By: Joe Soto on 06-08-2025 Leukocyte esterase Test strip Ql (U) Negative Negative [facility] Urine pHOrdered By: Joe Hwang gur on 06-08-2025 pH (U) 6.0 [pH] 5.0 - 8.0 [facility] Urine phencyclidine (PCP) de tectionOrdered By: Geo Reyes on 06-08-2025 Phencyclidine Ql (U) Negative < 25 ng/mL [facility] Urine sediment bacteria coun t by microscopy (number/high power field)Ordered By: Joe Soto on 06-08-2025 Bacteria LM.HPF (Urine sed) [#/Area] RARE /hpf None Seen [facility] Urine specific gravity measu rementOrdered By: Joe Soto on 06-08-2025 Specific gravity (U) [Rel density] 1.020 1.002-1.030 [facility] Urine urobilinogen measureme ntOrdered By: Joe Soto on 06-08-2025 Urobilinogen Ql (U) 1 mg/dl High Normal [facility] Vitamin B12 ser/plasOrdered By: Geo Reyes on 06-08-2025 Cobalamin (Vitamin B12) [Mass/Vol] 230 pg/mL 180-914 [facility] White blood cell (WBC) count Ordered By: Joe Soto on 06-08-2025 WBC (Bld) [#/Vol] 9.2 10*3/uL 4.4-11.0 [facility] White blood cell countOrdere d By: Joe Soto on 06-08-2025 White blood cell count 0-5 SEEN /hpf 0-5 [facility] Folates, RBCon 05-28-2025 Fol.,Hemolysate 498.0 ng/mL Normal Not Estab. [facility] Comment on above: Order Comment: LUPE Deleon SEND RESULTS OF B12 AND FOLATES TO Performed By: #### L 3100.1725, L503.0106, L501.9985, L500.2500, L501.4405, L501.4100 ####[facility] [address] [facility] [place], [address] Folate, RBC 1087 ng/mL Normal >498 [facility] Comment on above: Order Comment: LUPE Deleon SEND RESULTS OF B12 AND FOLATES TO Result Comment: Perf ormed at: - [facility] [address] [id number] Director: Vj Garcia PhD, Phone: [phone] Performed By: #### L 3100.1725, L503.0106, L501.9985, L500.2500, L501.4405, L501.4100 ####[facility] [address] [place], [place], [id number] Hematocrit (Bld) [Volume fraction] 45.8 % Normal 37.5-51.0 [facility] Comment on above: Order Comment: LUPE Deleon SEND RESULTS OF B12 AND FOLATES TO Performed By: #### L 3100.1725, L503.0106, L501.9985, L500.2500, L501.4405, L501.4100 ####[facility] [address] [facility] [address] [place], [place], [id number] AST(SGOT)on 05-26-2025 AST [Catalytic activity/Vol] 14 U/L Normal <=37 [facility] Comment on above: Order Comment: LUPE Deleon SEND RESULTS OF B12 AND FOLATES TO Performed By: #### L 3100.1725, L503.0106, L501.9985, L500.2500, L501.4405, L501.4100 ####[facility] [address] [facility] [place], [place], [id number] Alanine Aminotransferas (SGP T)on 05-26-2025 ALT [Catalytic activity/Vol] 6 U/L Normal <=46 [facility] Comment on above: Order Comment: LUPE SEND RESULTS OF B12 AND FOLATES TO Performed By: #### L 3100.1725, L503.0106, L501.9985, L500.2500, L501.4405, L501.4100 ####[facility] [address] [facility] [place], [place], [address] Anion gap in Serum or Plasma Ordered By: Natasha Gregory on 05-26-2025 Anion gap [Moles/Vol] 12 mmol/L 5-15 [facility] BUN/creatinine ratioOrdered By: Natasha Gregory on 05-26-2025 Urea nitrogen/Creatinine [Mass ratio] 19.8 mg/mg - [facility] Basic Metabolic Profile (BMP )on 05-26-2025 BUN/CRE 19.8 RATIO Normal 09-08 [facility] Comment on above: Order Comment: LUPE Deleon SEND RESULTS OF B12 AND FOLATES TO Performed By: #### L 3100.1725, L503.0106, L501.9985, L500.2500, L501.4405, L501.4100 ####[facility] [address] [place], [address] Calcium [Mass/Vol] 9.2 mg/dL Normal 7.6-11.0 [facility] Comment on above: Order Comment: LUPE Deleon SEND RESULTS OF B12 AND FOLATES TO Performed By: #### L 3100.1725, L503.0106, L501.9985, L500.2500, L501.4405, L501.4100 ####[facility] [address] [place], [address] Chloride [Moles/Vol] 104 mmol/L Normal 98-108 [facility] Comment on above: Order Comment: LUPE Deleon SEND RESULTS OF B12 AND FOLATES TO Performed By: #### L 3100.1725, L503.0106, L501.9985, L500.2500, L501.4405, L501.4100 ####[facility] [address] [place], [address] CO2 [Moles/Vol] 25.8 mmol/L Normal 21.0-32.0 [facility] Comment on above: Order Comment: LUPE Deleon SEND RESULTS OF B12 AND FOLATES TO Performed By: #### L 3100.1725, L503.0106, L501.9985, L500.2500, L501.4405, L501.4100 ####[facility] [address] [place], [address] Creatinine [Mass/Vol] 0.91 mg/dL Normal 0.70-1.20 [facility] Comment on above: Order Comment: LUPE Deleon SEND RESULTS OF B12 AND FOLATES TO Performed By: #### L 3100.1725, L503.0106, L501.9985, L500.2500, L501.4405, L501.4100 ####[facility] [address] [place], [address] GAP 12 Normal 5-15 [facility] Comment on above: Order Comment: LUPE E SEND RESULTS OF B12 AND FOLATES TO Performed By: #### L 3100.1725, L503.0106, L501.9985, L500.2500, L501.4405, L501.4100 ####[facility] [address] [facility] [place], [address] GFR/1.73 sq M.predicted among non-blacks MDRD (S/P/Bld) [Vol rate/Area] 86 mL/min/{1.73_m2} Normal >60 [facility] Comment on above: Order Comment: LUPE E SEND RESULTS OF B12 AND FOLATES TO Result Comment: mL/m in/1.73m2 CKD-EPI Creatinine Equation (2020) Performed By: #### L 3100.1725, L503.0106, L501.9985, L500.2500, L501.4405, L501.4100 ####[facility] [address] [place], [address] Glucose [Mass/Vol] 52 mg/dL Low 70-99 [facility] Comment on above: Order Comment: LUPE E SEND RESULTS OF B12 AND FOLATES TO Performed By: #### L 3100.1725, L503.0106, L501.9985, L500.2500, L501.4405, L501.4100 ####[facility] [address] [place], [address] Potassium [Moles/Vol] 3.9 mmol/L Normal 3.3-5.1 [facility] Comment on above: Order Comment: LUPE E SEND RESULTS OF B12 AND FOLATES TO Performed By: #### L 3100.1725, L503.0106, L501.9985, L500.2500, L501.4405, L501.4100 ####[facility] [address] [place], [address] Sodium [Moles/Vol] 142 mmol/L Normal 133-145 [facility] Comment on above: Order Comment: LUPE E SEND RESULTS OF B12 AND FOLATES TO Performed By: #### L 3100.1725, L503.0106, L501.9985, L500.2500, L501.4405, L501.4100 ####[facility] [address] [place], [address] Urea nitrogen [Mass/Vol] 18 mg/dL Normal 4-19 [facility] Comment on above: Order Comment: [facility] S[facility] RESULTS OF B12 AND FOLATES TO Performed By: #### L 3100.1725, L503.0106, L501.9985, L500.2500, L501.4405, L501.4100 ####[facility] [address] [place], [address] Carbon dioxide, total [Moles /volume] in Central venous bloodOrdered By: Natasha Gregory on 05-26-2025 CO2 [Moles/Vol] 25.8 mmol/L 21.0-32.0 [facility] Chloride assayOrdered By: Terri Gregory on 05-26-2025 Chloride [Moles/Vol] 104 mmol/L 98-108 [facility] Erythrocyte folate measureme nt with hematocritOrdered By: Natasha Gregory on 05-26-2025 Hematocrit (Bld) [Volume fraction] 45.8 % 37.5-51.0 [facility] Glomerular filtration rate ( GFR) estimation/1.73 sq m using serum, plasma, or whole bOrdered By: Natasha Gregory on 05-26-2025 GFR/1.73 sq M.predicted among non-blacks MDRD (S/P/Bld) [Vol rate/Area] 86 mL/min/{1.73_m2} >60 [facility] Comment on above: mL/min/1.73m2 CKD-EP I Creatinine Equation (2020) Hemoglobin A1con 05-26-2025 HbA1c (Bld) [Mass fraction] 6.6 % High <=5.6 [facility] Comment on above: Order Comment: LUPE Deleon SEND RESULTS OF B12 AND FOLATES TO Result Comment: Norm al < 5.7 % Prediabetic 5.7 - 6.4 % Diabetic >or= 6.5 % Please note range changes. Performed By: #### L 3100.1725, L503.0106, L501.9985, L500.2500, L501.4405, L501.4100 ####[facility] [address] [place], [place], [id number] Hemoglobin A1c percentageOrd ered By: Natasha Gregory on 05-26-2025 HbA1c (Bld) [Mass fraction] 6.6 % High <5.7 [facility] Comment on above: Normal < 5.7 % Predi abetic 5.7 - 6.4 % Diabetic >or= 6.5 % Please note range changes. Laboratory - Chemistry and C hemistry - challengeOrdered By: Natasha Gregory on 05-26-2025 AST [Catalytic activity/Vol] 14 U/L <38 [facility] Potassium measurement (mass/ volume)Ordered By: Natasha Gregory on 05-26-2025 Potassium (Unsp spec) [Mass/Vol] 3.9 mmol/L 3.3-5.1 [facility] Serum creatinine measurement (mass/volume)Ordered By: Natasha Gregory on 05-26-2025 Creatinine [Mass/Vol] 0.91 mg/dL 0.70-1.20 [facility] Serum glucose measurement (m ass/volume)Ordered By: Natasha Gregory on 05-26-2025 Glucose [Mass/Vol] 52 mg/dL Low 70-99 [facility] Serum or plasma alanine max otransferase (ALT) measurementOrdered By: Natasha Gregory on 05-26-2025 ALT [Catalytic activity/Vol] 6 U/L <47 [facility] Serum or plasma calcium walt urement (mass/volume)Ordered By: Natasha Gregory on 05-26-2025 Calcium [Mass/Vol] 9.2 mg/dL 7.6-11.0 [facility] Serum or plasma urea nitroge n measurement (mass/volume)Ordered By: Natasha Gregory on 05-26-2025 Urea nitrogen [Mass/Vol] 18 mg/dL 4-19 [facility] Sodium levelOrdered By: Josefina Gregory on 05-26-2025 Sodium [Moles/Vol] 142 mmol/L 133-145 [facility] Vitamin B12on 05-26-2025 Cobalamin (Vitamin B12) [Mass/Vol] 287 pg/mL Normal 180-914 [facility] Comment on above: Order Comment: LUPE Deleon SEND RESULTS OF B12 AND FOLATES TO Performed By: #### L 3100.1725, L503.0106, L501.9985, L500.2500, L501.4405, L501.4100 ####[facility] [address] [place], [address] Vitamin B12 ser/plasOrdered By: Natasha Gregory on 05-26-2025 Cobalamin (Vitamin B12) [Mass/Vol] 287 pg/mL 180-914 [facility] D/C Summary- SPon 05-19-2025 D/C Summary- SP Normal [facility] Bedside Glucoseon 05-11-2025 FINGERSTICK GLU 97 mg/dL Normal 74-106 [facility] Comment on above: Result Comment: GARY REYES OF PATIENT CARE PER NURSING PROTOCOL Performed By: #### L 501.080 ####[facility] [address] [place], [address] Emergency Department Summary on 05-11-2025 Emergency Department Summary Normal [facility] deOrdered By: Dano Minor on 05-11-2025 Glucose [Mass/Vol] 97 mg/dL 74-106 [facility] Comment on above: MANAGEMENT OF PATIEN T CARE PER NURSING PROTOCOL Modified Barium Swallow Stud yon 05-09-2025 Modified Barium Swallow Study Normal [facility] Microalb:Creat Ratio,Random URon 05-08-2025 MALB:CREAT 8.8 mg/g CRE Normal [facility] Comment on above: Result Comment: AMENDED REPORT 05/08/25 0851 MALB:CREAT previously reported as: 87.7 mg/g CRE Performed By: #### L 501.4405, L501.9985, L502.0250, L501.4100, L500.2500 ####[facility] [address] [place], [address] CT MAXILLOFACIAL WO IV CONTR Princess 04-13-2025 CT MAXILLOFACIAL WO IV CONTRAST Patient Name: LUIS ARMANDO GRIFFITH : 1945 [facility]#: [id number] Exam Date/Time: 04/13/2025 21:07 Procedure: CT MAXILLOFACIAL [...] lac to forehead above left eye Normal [facility] CT Maxillofacial region WO c [facility] 04-13-2025 1. Bilateral nasal bone fractures. 2. Left frontal scalp laceration with contusion. Report Dictated on Electronically Signed By: Maine Briones MD Electronically Signed Date/Time: 04/13/2025 9:21 PM EDT [facility] 1945 [id number] Exam Date/Time: 04/13/2025 21:07 Procedure: CT MAXILLOFACIAL [...] airway is patent. The epiglottis is normal. [facility] Maine Briones MD - 04/13/2025 Patient Name: LU[facility] ARMAND[facility]RIFF[facility] 1945 [id number] Exam Date/Time: 04/13/2025 21:07 Procedure: CT MAXILLOFACIAL [...] Electronically Signed Date/Time: 04/13/2025 9:21 PM EDT [facility] Radiology Study observation (narrative) [facility] [place] CT Maxillofacial region WO c ontrastOrdered By: Maine Briones on 04-13-2025 [facility] [place] Work Phone: ED Nursing Noteon 04-13-2025 ED Nursing Note Pt presents to ED vi a EMS from restaurant for c/o left frontal head lac after losing footing and falling onto face on the ground. Pt has hx of parkinson's. Abrasion noted to forehead, small lac noted to bridge of nose as well as a large lac to forehead above left eye Normal [facility] ED Provider Noteon ED Provider Note [...] records from: PDMP demonstrating 1 prescription, for [place] CT demonstrating bilateral nasal bone fractures. The [...] initial encounter Medications lidocaine-EPINEPHrine (Xylocaine W/EPI) 1 %-1:017503 injection 10 mL (has no administration in [...] Consent obtained: Verbal Consent given by: Patient [place] protocol: Imaging studies available: yes Patient identi (more content not included)... Normal [facility] No Panel Informationon 04-13 Chetan Powell MD 04/13/2025 10:22 PM Laceration Repair Performed by: Chetan Powell MD Authorized by: Chetan Powell MD Consent: Consent obtained: Verbal Consent given by: Patient [place] protocol: Imaging studies available: yes Patient identity [...] Dressing: Open (no dressing) Procedure completion: Tolerated [facility] Brain/Head without Contrasto n 04-09-2025 Brain/Head without Contrast Normal [facility] Emergency Department Summary on 04-09-2025 Emergency Department Summary Normal [facility] Spine Cervical without Contr ason 04-09-2025 Spine Cervical without Contras Normal [facility] Anion gap in Serum or Plasma Ordered By: Ja Cooley on 04-03-2025 Anion gap [Moles/Vol] 11 mmol/L 04-03 [facility] BUN/creatinine ratioOrdered By: Ja Cooley on 04-03-2025 Urea nitrogen/Creatinine [Mass ratio] 20.8 mg/mg High 09-08 [facility] Bilirubin, totalOrdered By: Ja Cooley on 04-03-2025 Bilirubin [Mass/Vol] 0.52 mg/dL 0.00-1.30 [facility] Calculated very low density lipoprotein (VLDL) cholesterol measurementOrdered By: Ja Cooley on 04-03-2025 Calculated very low density lipoprotein (VLDL) cholesterol measurement 27 mg/dL 5-40 [facility] Carbon dioxide, total [Moles /volume] in Central venous bloodOrdered By: Ja Cooley on 04-03-2025 CO2 [Moles/Vol] 26.4 mmol/L 21.0-32.0 [facility] Chloride assayOrdered By: Rimma Cooley on 04-03-2025 Chloride [Moles/Vol] 104 mmol/L 98-108 [facility] Comprehensive Metabolic Prof ilon 04-03-2025 Albumin [Mass/Vol] 3.9 g/dL Normal 3.4-4.8 [facility] Comment on above: Order Comment: Order Date: 03/13/25Order Info: [id number]- - CMPOrder Info: [id number] - LIPID Performed By: #### L 500.4050 ####[facility] [address] [place], [address] Albumin/Globulin [Mass ratio] 1.4 {ratio} Normal 0.9-2.4 [facility] Comment on above: Order Comment: Order Date: 03/13/25Order Info: [id number] - CMPOrder Info: [id number] - LIPID Performed By: #### L 500.4050 ####[facility] [address] [place], [address] ALK PHOS 79 U/L Normal 40-129 [facility] Comment on above: Order Comment: Order Date: 03/13/25Order Info: [id number] - CMPOrder Info: [id number] - LIPID Performed By: #### L 500.4050 ####[facility] [address] [place], [address] ALT [Catalytic activity/Vol] 5 U/L Normal <=46 [facility] Comment on above: Order Comment: Order Date: 03/13/25Order Info: [id number] - CMPOrder Info: [id number] - LIPID Performed By: #### L 500.4050 ####[facility] [address] [place], [address] AST [Catalytic activity/Vol] 17 U/L Normal <=37 [facility] Comment on above: Order Comment: Order Date: 03/13/25Order Info: [id number] - CMPOrder Info: [id number] - LIPID Performed By: #### L 500.4050 ####[facility] [address] [place], [address] Bilirubin [Mass/Vol] 0.52 mg/dL Normal 0.00-1.30 [facility] Comment on above: Order Comment: Order Date: 03/13/25Order Info: [id number]- - CMPOrder Info: - LIPID Performed By: #### L 500.4050 ####[facility] [address] [place], [address] BUN/CRE 20.8 RATIO High 10-20 [facility] Comment on above: Order Comment: Order Date: 03/13/25Order Info: 07- - CMPOrder Info: - LIPID Performed By: #### L 500.4050 ####[facility] [address] [place], [address] Calcium [Mass/Vol] 9.2 mg/dL Normal 7.6-11.0 [facility] Comment on above: Order Comment: Order Date: 03/13/25Order Info: [id number]- - CMPOrder Info: - LIPID Performed By: #### L 500.4050 ####[facility] [address] [place], [address] Chloride [Moles/Vol] 104 mmol/L Normal 98-108 [facility] Comment on above: Order Comment: Order Date: 03/13/25Order Info: [id number] - CMPOrder Info: [id number] - LIPID Performed By: #### L 500.4050 ####[facility] [address] [place], [address] CO2 [Moles/Vol] 26.4 mmol/L Normal 21.0-32.0 [facility] Comment on above: Order Comment: Order Date: 03/13/25Order Info: [id number] - CMPOrder Info: [id number] - LIPID Performed By: #### L 500.4050 ####[facility] [address] [place], [address] Creatinine [Mass/Vol] 0.78 mg/dL Normal 0.70-1.20 [facility] Comment on above: Order Comment: Order Date: 03/13/25Order Info: 07- - CMPOrder Info: [id number] - LIPID Performed By: #### L 500.4050 ####[facility] [address] [place], [address] GAP 11 Normal 5-15 [facility] Comment on above: Order Comment: Order Date: 03/13/25Order Info: 07- - CMPOrder Info: [id number] - LIPID Performed By: #### L 500.4050 ####[facility] [address] [place], [address] GFR/1.73 sq M.predicted among non-blacks MDRD (S/P/Bld) [Vol rate/Area] 90 mL/min/{1.73_m2} Normal >60 [facility] Comment on above: Order Comment: Order Date: 03/13/25Order Info: [id number]- - CMPOrder Info: [id number] - LIPID Result Comment: mL/m in/1.73m2 CKD-EPI Creatinine Equation (2020) Performed By: #### L 500.4050 ####[facility] [address] [place], [address] Globulin (S) [Mass/Vol] 2.8 g/dL Normal 2.2-4.2 [facility] Comment on above: Order Comment: Order Date: 03/13/25Order Info: [id number] - CMPOrder Info: [id number] - LIPID Performed By: #### L 500.4050 ####[facility] [address] [place], [address] Glucose [Mass/Vol] 109 mg/dL High 70-99 [facility] Comment on above: Order Comment: Order Date: 03/13/25Order Info: [id number] - CMPOrder Info: [id number] - LIPID Performed By: #### L 500.4050 ####[facility] [address] [place], [address] Potassium [Moles/Vol] 3.9 mmol/L Normal 3.3-5.1 [facility] Comment on above: Order Comment: Order Date: 03/13/25Order Info: [id number]- - CMPOrder Info: [id number] - LIPID Performed By: #### L 500.4050 ####[facility] [address] [place], [address] Sodium [Moles/Vol] 142 mmol/L Normal 133-145 [facility] Comment on above: Order Comment: Order Date: 03/13/25Order Info: [id number] - CMPOrder Info: [id number] - LIPID Performed By: #### L 500.4050 ####[facility] [address] [place], [address] T PROT 6.6 g/dL Normal 5.9-8.4 [facility] Comment on above: Order Comment: Order Date: 03/13/25Order Info: [id number] - CMPOrder Info: [id number] - LIPID Performed By: #### L 500.4050 ####[facility] [address] [place], [address] Urea nitrogen [Mass/Vol] 16 mg/dL Normal 4-19 [facility] Comment on above: Order Comment: Order Date: 03/13/25Order Info: [id number] - CMPOrder Info: [id number] - LIPID Performed By: #### L 500.4050 ####[facility] [address] [place], [place], [address] Glomerular filtration rate ( GFR) estimation/1.73 sq m using serum, plasma, or whole bOrdered By: Ja Cooley on 04-03-2025 GFR/1.73 sq M.predicted among non-blacks MDRD (S/P/Bld) [Vol rate/Area] 90 mL/min/{1.73_m2} >60 [facility] Comment on above: mL/min/1.73m2 CKD-EP I Creatinine Equation (2020) LDL calc ser/plasOrdered By: Ja Cooley on 04-03-2025 Cholesterol in LDL [Mass/Vol] 47 mg/dL [facility] Comment on above: Fnnvmkheit=174-336 m g/dL & Higher Skkl=437 mg/dL or greater Laboratory - Chemistry and C hemistry - challengeOrdered By: Ja Cooley on 04-03-2025 AST [Catalytic activity/Vol] 17 U/L <38 [facility] Lipid Profileon 04-03-2025 CHOL:HDL 2.63 Normal [facility] Comment on above: Order Comment: Order Date: 03/13/25Order Info: [id number] - CMPOrder Info: [id number] - LIPID Performed By: #### L 500.4100 ####[facility] [address] [place], [place], [address] Cholesterol [Mass/Vol] 120 mg/dL Normal <=200 [facility] Comment on above: Order Comment: Order Date: 03/13/25Order Info: [id number] - CMPOrder Info: [id number] - LIPID Result Comment: Chol esterol level, Desirable <200 mg/dLBorderline high cholesterol 200-239 mg/dLHigh cholesterol >=240 mg/dLRecommendations of the NCEP Adult Treatment Panel for thefollowing risk-cutoff thresholds for the [place] Americanpopulation. Performed By: #### L 500.4100 ####[facility] [address] [place], [place], [id number] Cholesterol in HDL [Mass/Vol] 46 mg/dL Normal [facility] Comment on above: Order Comment: Order Date: 03/13/25Order Info: [id number] - CMPOrder Info: [id number] - LIPID Result Comment: Makayla onal Cholesterol Education Program (NCEP) guidelines:<40 mg/dL: Low HDL-cholesterol (major risk factor for CHD)>= 60 mg/dL: High HDL-cholesterol (negative risk factor forCHD)HDL-cholesterol is affected by a number of factors, e.g.smoking, exercise, hormones, sex and age. Performed By: #### L 500.4100 ####[facility] [address] [place], [place], [id number]) Cholesterol in LDL [Mass/Vol] 47 mg/dL Normal [facility] Comment on above: Order Comment: Order Date: 03/13/25Order Info: [id number] - CMPOrder Info: [id number] - LIPID Result Comment: Bord tjiufp=836-398 mg/dL Higher Uqaw=305 mg/dL or greater Performed By: #### L 500.4100 ####[facility] [address] [place], [place], [phone]) Cholesterol in VLDL [Mass/Vol] 27 mg/dL Normal 5-40 [facility] Comment on above: Order Comment: Order Date: 03/13/25Order Info: [id number] - CMPOrder Info: [id number] - LIPID Performed By: #### L 500.4100 ####[facility] [address] [place], [address] Triglyceride [Mass/Vol] 135 mg/dL Normal [facility] Comment on above: Order Comment: Order Date: 03/13/25Order Info: [id number] - CMPOrder Info: [id number] - LIPID Result Comment: The drugs N-Acetylcysteine and Metamizole may falselydepress this assay.Normal range: <150 mg/dLBorderline High: 150-199 mg/dLHigh: 200-499 mg/dLVery High: >500 mg/dL Performed By: #### L 500.4100 ####[facility] [address] [place], [address] Potassium measurement (mass/ volume)Ordered By: Ja Cooley on 04-03-2025 Potassium (Unsp spec) [Mass/Vol] 3.9 mmol/L 3.3-5.1 [facility] Screening total cholesterol/ high density lipoprotein (HDL) cholesterol ratioOrdered By: Ja Cooley on 04-03-2025 Cholesterol.total/Cholest gris in HDL [Mass ratio] 2.63 {ratio} [facility] Serum creatinine measurement (mass/volume)Ordered By: Ja Cooley on 04-03-2025 Creatinine [Mass/Vol] 0.78 mg/dL 0.70-1.20 [facility] Serum globulin measurementOr dered By: Ja Cooley on 04-03-2025 Globulin (S) [Mass/Vol] 2.8 g/dL 2.2-4.2 [facility] Serum glucose measurement (m ass/volume)Ordered By: Ja Cooley on 04-03-2025 Glucose [Mass/Vol] 109 mg/dL High 70-99 [facility] Serum or plasma alanine max otransferase (ALT) measurementOrdered By: Ja Cooley on 04-03-2025 ALT [Catalytic activity/Vol] 5 U/L <47 [facility] Serum or plasma albumin walt urement (mass/volume)Ordered By: Ja Cooley on 04-03-2025 Albumin [Mass/Vol] 3.9 g/dL 3.4-4.8 [facility] Serum or plasma albumin/glob ulin mass ratioOrdered By: Ja Cooley on 04-03-2025 Albumin/Globulin [Mass ratio] 1.4 {ratio} 0.9-2.4 [facility] Serum or plasma alkaline sarah sphatase measurementOrdered By: Ja Cooley on 04-03-2025 ALP [Catalytic activity/Vol] 79 U/L 40-129 [facility] Serum or plasma calcium walt urement (mass/volume)Ordered By: Ja Cooley on 04-03-2025 Calcium [Mass/Vol] 9.2 mg/dL 7.6-11.0 [facility] Serum or plasma cholesterol in HDL measurement (mass/volume)Ordered By: Ja Cooley on 04-03-2025 Cholesterol in HDL [Mass/Vol] 46 mg/dL >40 [facility] Comment on above: National Cholesterol Education Program (NCEP) guidelines:<40 mg/dL: Low HDL-cholesterol (major risk factor for CHD)>= 60 mg/dL: High HDL-cholesterol (negative risk factor for CHD)HDL-cholesterol is affected by a number of factors, e.g. smoking, exercise, hormones, sex and age. Serum or plasma cholesterol measurement (mass/volume)Ordered By: Ja Cooley on 04-03-2025 Cholesterol [Mass/Vol] 120 mg/dL <201 [facility] Comment on above: Cholesterol level, D esirable <200 mg/dLBorderline high cholesterol 200-239 mg/dLHigh cholesterol >=240 mg/dLRecommendations of the NCEP Adult Treatment Panel for the following risk-cutoff thresholds for the [place] population. Serum or plasma urea nitroge n measurement (mass/volume)Ordered By: Ja Cooley on 04-03-2025 Urea nitrogen [Mass/Vol] 16 mg/dL 4-19 [facility] Sodium levelOrdered By: Ja Cooley on 04-03-2025 Sodium [Moles/Vol] 142 mmol/L 133-145 [facility] Total proteinOrdered By: Kwabena Cooley on 04-03-2025 Protein [Mass/Vol] 6.6 g/dL 5.9-8.4 [facility] Triglycerides measurementOrd ered By: Ja Cooley on 04-03-2025 Triglyceride [Mass/Vol] 135 mg/dL <199 [facility] Comment on above: The drugs N-Acetylcy steine and Metamizole may falsely depress this assay. Normal range: <150 mg/dLBorderline High: 150-199 mg/dLHigh: 200-499 mg/dLVery High: >500 mg/dL Vitamin D,25 Hydroxyon 04-03 Vitamin D 25-OH 39.2 ng/mL Normal 30-100 [facility] Comment on above: Order Comment: Order Date: 03/13/25Order Info: [id number] - CMPOrder Info: [id number] - LIPID Result Comment: Lisa min D StatusDeficiency: <20 ng/mL (50nmol/L)Insufficiency: 20-30 ng/mL (50-75 nmol/L)Sufficiency: 30-100 ng/mL (75-250 nmol/L)Toxicity: >100 ng/mL (>250 nmol/L) Performed By: #### L 506.1001 ####[facility] [address] [place], [phone] Chest without Contraston Chest without Contrast Normal [facility] Neurology Visit Reporton Neurology Visit Report Normal [facility] Absolute lymphocyte countOrd ered By: Jose Suhyamile on 03-03-2025 Lymphocytes Auto (Unsp spec) [#/Vol] 4.51 10*3/uL 0.83-4.51 [facility] Absolute neutrophil countOrd ered By: [facility] Cannonyamile on 03-03-2025 Neutrophils (Bld) [#/Vol] 5.4 10*3/uL 2.0-7.7 [facility] Automated lymphocyte count a s percentage of total leukocytesOrdered By: Jose Perez on 03-03-2025 Lymphocytes/100 WBC Auto (Unsp spec) 39.8 % 19-41 [facility] Basophil percentageOrdered B y: Jose Vikashyamile on 03-03-2025 Basophils/100 WBC (Bld) 0.7 % 0-1 [facility] CBC W/Diff, Automatedon 02-18 Absolute Lymph 4.51 X10 3/uL Normal 0.83-4.51 [facility] Comment on above: Performed By: #### L 100.0100 ####[facility] [address] [place], [address] Absolute Neut 5.4 X10 3/uL Normal 2.0-7.7 [facility] Comment on above: Performed By: #### L 100.0100 ####[facility] [address] [place], [address] Basophils/100 WBC (Bld) 0.7 % Normal 0-1 [facility] Comment on above: Performed By: #### L 100.0100 ####[facility] [address] [place], [address] Eosinophils/100 WBC (Bld) 1.2 % Normal 0-5 [facility] Comment on above: Performed By: #### L 100.0100 ####[facility] [address] [place], [address] Erythrocyte distribution width (RBC) [Ratio] 13.6 % Normal 11.6-14.6 [facility] Comment on above: Performed By: #### L 100.0100 ####[facility] [address] [place], [address] Hematocrit (Bld) [Volume fraction] 44.2 % Normal 40-54 [facility] Comment on above: Performed By: #### L 100.0100 ####[facility] [address] [place], [address] Hemoglobin (Bld) [Mass/Vol] 14.5 g/dL Normal 13.0-16.5 [facility] Comment on above: Performed By: #### L 100.0100 ####[facility] [address] [place], [address] IG% 0.500 Normal 0.0-0.9 [facility] Comment on above: Result Comment: IG% - Immature Granulocytes (promyelocytes, myelocytes andmetamyelocytes) > 1% indicates that a LEFT SHIFT is Present. Performed By: #### L 100.0100 ####[facility] [address] [place], [address] Lymphocytes/100 WBC (Bld) 39.8 % Normal 19-41 [facility] Comment on above: Performed By: #### L 100.0100 ####[facility] [address] [place], [address] MCH (RBC) [Entitic mass] 30.3 pg Normal 27.0-32.0 [facility] Comment on above: Performed By: #### L 100.0100 ####[facility] [address] [place], [address] MCHC (RBC) [Mass/Vol] 32.8 g/dL Normal 32-36 [facility] Comment on above: Performed By: #### L 100.0100 ####[facility] [address] [place], [address] MCV (RBC) [Entitic vol] 92.3 fL Normal 80-94 [facility] Comment on above: Performed By: #### L 100.0100 ####[facility] [address] [place], [address] Monocytes/100 WBC (Bld) 9.8 % Normal 0-10 [facility] Comment on above: Performed By: #### L 100.0100 ####[facility] [address] [place], [address] Neutrophils/100 WBC (Bld) 48.0 % Normal 47-70 [facility] Comment on above: Performed By: #### L 100.0100 ####[facility] [address] [place], [address] Nucleated RBC (Bld) [#/Vol] 0 10*3/uL Normal 0-5 [facility] Comment on above: Performed By: #### L 100.0100 ####[facility] [address] [place], [address] Platelet mean volume (Bld) [Entitic vol] 10.5 fL Normal 6.2-12.0 [facility] Comment on above: Performed By: #### L 100.0100 ####[facility] [address] [place], [address] Platelets (Bld) [#/Vol] 339 10*3/uL Normal 150-450 [facility] Comment on above: Performed By: #### L 100.0100 ####[facility] [address] [place], [address] RBC (Bld) [#/Vol] 4.79 10*6/uL Normal 4.6-6.2 [facility] Comment on above: Performed By: #### L 100.0100 ####[facility] [address] [place], [address] RDW SD 46.1 fl High 35.1-43.9 [facility] Comment on above: Performed By: #### L 100.0100 ####[facility] [address] [place], [address] WBC (Bld) [#/Vol] 11.3 10*3/uL High 4.4-11.0 [facility] Comment on above: Performed By: #### L 100.0100 ####[facility] [address] [place], [address] Eosinophil percentageOrdered By: Jose Perez on 03-03-2025 Eosinophils/100 WBC (Bld) 1.2 % 0-5 [facility] Erythrocyte distribution wid th (RBC) [Ratio]Ordered By: Jose Perez on 03-03-2025 Erythrocyte distribution width (RBC) [Entitic vol] 46.1 fL High 35.1-43.9 [facility] Erythrocyte distribution wid th ratioOrdered By: Jose Perez on 03-03-2025 Erythrocyte distribution width (RBC) [Ratio] 13.6 % 11.6-14.6 [facility] Erythrocyte distribution wid th standard deviationOrdered By: oJse Perez on 03-03-2025 Erythrocyte distribution width (RBC) [Ratio] 46.1 fl High 35.1-43.9 [facility] Hematocrit Auto (Bld) [Volum e fraction]Ordered By: Jose Perez on 03-03-2025 Hematocrit (Bld) [Volume fraction] 44.2 % 40-54 [facility] Hemoglobin measurementOrdere d By: Jose Perez on 03-03-2025 Hemoglobin (Bld) [Mass/Vol] 14.5 g/dL 13.0-16.5 [facility] Immature granulocytes/100 WB C Auto (Bld)Ordered By: Jose Perez on 03-03-2025 Immature granulocytes/100 WBC (Bld) 0.500 % 0.0-0.9 [facility] Comment on above: IG% - Immature Granu locytes (promyelocytes, myelocytes and metamyelocytes) > 1% indicates that a LEFT SHIFT is Present. Lymphocytes Auto (Unsp spec) [#/Vol]Ordered By: Jose Perez on 03-03-2025 Lymphocytes (Bld) [#/Vol] 4.51 10*3/uL 0.83-4.5 1 [facility] Lymphocytes/100 WBC Auto (Un sp spec)Ordered By: Jose Perez on 03-03-2025 Lymphocytes/100 WBC (Bld) 39.8 % 19-41 [facility] MCV (mean corpuscular volume ) determinationOrdered By: Jose Perez on 03-03-2025 MCV (RBC) [Entitic vol] 92.3 fL 80-94 [facility] Mean corpuscular hemoglobin (MCH) determinationOrdered By: Jose Perez on 03-03-2025 MCH (RBC) [Entitic mass] 30.3 pg 27.0-32.0 [facility] Mean corpuscular hemoglobin concentration (MCHC) determinationOrdered By: Jose Perez on 03-03-2025 MCHC (RBC) [Mass/Vol] 32.8 g/dL 32-36 [facility] Mean platelet volume determi nationOrdered By: Jose Perez on 03-03-2025 Platelet mean volume (Bld) [Entitic vol] 10.5 fL 6.2-12.0 [facility] Monocyte percentageOrdered B y: Jose Perez on 03-03-2025 Monocytes/100 WBC (Bld) 9.8 % 0-10 [facility] Neutrophil percentageOrdered By: Jose Perez on 03-03-2025 Neutrophils/100 WBC (Bld) 48.0 % 47-70 [facility] Nucleated red blood cell per centageOrdered By: Jose Perez on 03-03-2025 Nucleated RBC/100 WBC (Bld) [Ratio] 0 % 0-5 [facility] Platelet countOrdered By: Jasmine Perez on 03-03-2025 Platelets (Bld) [#/Vol] 339 10*3/uL 150-450 [facility] RBC Auto (Bld) [#/Vol]Ordere d By: Jose Perez on 03-03-2025 RBC (Bld) [#/Vol] 4.79 10*6/uL 4.6-6.2 [facility] White blood cell (WBC) count Ordered By: Jose Perez on 03-03-2025 WBC (Bld) [#/Vol] 11.3 10*3/uL High 4.4-11.0 [facility] SP/HP.SP.Davidson 02-26-2025 SP/HP.SP.EV Normal [facility] AST(SGOT)on 02-20-2025 AST [Catalytic activity/Vol] 13 U/L Normal <=37 [facility] Comment on above: Performed By: #### L 501.4405, L501.9985, L502.0250, L501.4100, L500.2500 ####[facility] [address] [place], [address] Alanine Aminotransferas (SGP T)on 02-20-2025 ALT [Catalytic activity/Vol] 7 U/L Normal <=46 [facility] Comment on above: Performed By: #### L 501.4405, L501.9985, L502.0250, L501.4100, L500.2500 ####[facility] [address] [place], [address] Albumin DL <= 20 mg/L (U) [M ass/Vol]Ordered By: Natasha Gregory on 02-20-2025 Urine Random Microalbumin 13.6 mg/L NO RANGE EST. [facility] Anion gap in Serum or Plasma Ordered By: Natasha Gregory on 02-20-2025 Anion gap [Moles/Vol] 13 mmol/L 5-15 [facility] BUN/creatinine ratioOrdered By: Natasha Gregory on 02-20-2025 Urea nitrogen/Creatinine [Mass ratio] 23.0 mg/mg High - [facility] Basic Metabolic Profile (BMP )on 02-20-2025 BUN/CRE 23.0 RATIO High - [facility] Comment on above: Performed By: #### L 501.4405, L501.9985, L502.0250, L501.4100, L500.2500 ####[facility] [address] [place], [address] Calcium [Mass/Vol] 9.0 mg/dL Normal 7.6-11.0 [facility] Comment on above: Performed By: #### L 501.4405, L501.9985, L502.0250, L501.4100, L500.2500 ####[facility] [address] [place], [address] Chloride [Moles/Vol] 102 mmol/L Normal 98-108 [facility] Comment on above: Performed By: #### L 501.4405, L501.9985, L502.0250, L501.4100, L500.2500 ####[facility] [address] [place], [address] CO2 [Moles/Vol] 21.9 mmol/L Normal 21.0-32.0 [facility] Comment on above: Performed By: #### L 501.4405, L501.9985, L502.0250, L501.4100, L500.2500 ####[facility] [address] [place], [address] Creatinine [Mass/Vol] 0.83 mg/dL Normal 0.70-1.20 [facility] Comment on above: Performed By: #### L 501.4405, L501.9985, L502.0250, L501.4100, L500.2500 ####[facility] [address] [place], [address] GAP 13 Normal 5-15 [facility] Comment on above: Performed By: #### L 501.4405, L501.9985, L502.0250, L501.4100, L500.2500 ####[facility] [address] [place], [address] GFR/1.73 sq M.predicted among non-blacks MDRD (S/P/Bld) [Vol rate/Area] 89 mL/min/{1.73_m2} Normal >60 [facility] Comment on above: Result Comment: mL/m in/1.73m2 CKD-EPI Creatinine Equation (2020) Performed By: #### L 501.4405, L501.9985, L502.0250, L501.4100, L500.2500 ####[facility] [address] [place], [address] Glucose [Mass/Vol] 277 mg/dL High 70-99 [facility] Comment on above: Performed By: #### L 501.4405, L501.9985, L502.0250, L501.4100, L500.2500 ####[facility] [address] [place], [address] Potassium [Moles/Vol] 4.1 mmol/L Normal 3.3-5.1 [facility] Comment on above: Performed By: #### L 501.4405, L501.9985, L502.0250, L501.4100, L500.2500 ####[facility] [address] [place], [address] Sodium [Moles/Vol] 137 mmol/L Normal 133-145 [facility] Comment on above: Performed By: #### L 501.4405, L501.9985, L502.0250, L501.4100, L500.2500 ####[facility] [address] [place], [address] Urea nitrogen [Mass/Vol] 19 mg/dL Normal 4-19 [facility] Comment on above: Performed By: #### L 501.4405, L501.9985, L502.0250, L501.4100, L500.2500 ####[facility] [address] [place], [address] Carbon dioxide, total [Moles /volume] in Central venous bloodOrdered By: Natasha Gregory on 02-20-2025 CO2 [Moles/Vol] 21.9 mmol/L 21.0-32.0 [facility] Chloride assayOrdered By: Terri Gregory on 02-20-2025 Chloride [Moles/Vol] 102 mmol/L 98-108 [facility] Creatinine Unsp time (U) [Ma ss/Vol]Ordered By: Natasha Gregory on 02-20-2025 Creatinine (U) [Mass/Vol] 155.00 mg/dL 39 .00-259.0 0 [facility] GFR/1.73 sq M.predicted krystal g non-blacks MDRD (S/P/Bld) [Vol rate/Area]Ordered By: Natasha Gregory on 02-20-2025 Estimated GFR (MDRD) Non-Af Amer 89 >60 [facility] Comment on above: mL/min/1.73m2 CKD-EP I Creatinine Equation (2020) Glomerular filtration rate ( GFR) estimation/1.73 sq m using serum, plasma, or whole bOrdered By: Natasha Gregory on 02-20-2025 GFR/1.73 sq M.predicted among non-blacks MDRD (S/P/Bld) [Vol rate/Area] 89 mL/min/{1.73_m2} >60 [facility] Comment on above: mL/min/1.73m2 CKD-EP I Creatinine Equation (2020) Hemoglobin A1con 02-20-2025 HbA1c (Bld) [Mass fraction] 7.1 % Normal <=5.6 [facility] Comment on above: Performed By: #### L 501.4405, L501.9985, L502.0250, L501.4100, L500.2500 ####[facility] [address] [place], [address] Hemoglobin A1c percentageOrd ered By: Natasha Gregory on 02-20-2025 HbA1c (Bld) [Mass fraction] 7.1 % >5.7 [facility] Laboratory - Chemistry and C hemistry - challengeOrdered By: Natasha Gregory on 02-20-2025 AST [Catalytic activity/Vol] 13 U/L <38 [facility] Microalbumin/creat ratio urO rdered By: Natasha Gregory on 02-20-2025 Urine Microalbumin/Creatinine Ratio 87.7 mg/g CRE [facility] Potassium (Unsp spec) [Mass/ Vol]Ordered By: Natasha Gregory on 02-20-2025 Potassium [Moles/Vol] 4.1 mmol/L 3.3-5.1 [facility] Potassium measurement (mass/ volume)Ordered By: Natasha Gregory on 02-20-2025 Potassium (Unsp spec) [Mass/Vol] 4.1 mmol/L 3.3-5.1 [facility] Random urine creatinine walt urement (mass/volume)Ordered By: Natasha Gregory on 02-20-2025 Creatinine Unsp time (U) [Mass/Vol] 155.00 mg/dL 39.00-259.0 0 [facility] Serum creatinine measurement (mass/volume)Ordered By: Natasha Gregory on 02-20-2025 Creatinine [Mass/Vol] 0.83 mg/dL 0.70-1.20 [facility] Serum glucose measurement (m ass/volume)Ordered By: Natasha Gregory on 02-20-2025 Glucose [Mass/Vol] 277 mg/dL High 70-99 [facility] Serum or plasma alanine mxa otransferase (ALT) measurementOrdered By: Natasha Gregory on 02-20-2025 ALT [Catalytic activity/Vol] 7 U/L <47 [facility] Serum or plasma calcium walt urement (mass/volume)Ordered By: Natasha Gregory on 02-20-2025 Calcium [Mass/Vol] 9.0 mg/dL 7.6-11.0 [facility] Serum or plasma urea nitroge n measurement (mass/volume)Ordered By: Natasha Gregory on 02-20-2025 Urea nitrogen [Mass/Vol] 19 mg/dL 4-19 [facility] Sodium levelOrdered By: Josefina Gregory on 02-20-2025 Sodium [Moles/Vol] 137 mmol/L 133-145 [facility] Urine albumin measurement wi th detection limit of 20 mg/L or less (mass/volume)Ordered By: Natasha Gregory on 02-20-2025 Albumin DL <= 20 mg/L (U) [Mass/Vol] 13.6 mg/L NO RANGE EST. [facility] Brain/Head without Contrasto n 02-14-2025 Brain/Head without Contrast Normal [facility] Emergency Department Summary on 02-14-2025 Emergency Department Summary Normal [facility] Spine Cervical without Contr ason 02-14-2025 Spine Cervical without Contras Normal [facility] Neurology Visit Reporton Neurology Visit Report Normal [facility] Chest PA and Lateralon 01-21 Chest PA and Lateral Normal [facility] Microalb:Creat Ratio,Random URon 12-10-2024 Creatinine [Mass/Vol] 104.00 mg/dL Normal NO RAN GE EST. [facility] Comment on above: Order Comment: Order Date: 12/04/24Order Info: [id number] - MIACRE Performed By: #### L 502.0250 ####[facility] [address] [place], [place], [id number] MALB:CRE 17.0 mg/g CRE Normal <30 mg/g CRE [facility] Comment on above: Order Comment: Order Date: 12/04/24Order Info: [id number] - MIACRE Performed By: #### L 502.0250 ####[facility] [address] [place], [place], [id number] MICROALBUMIN,UR 17.7 mg/L Normal NO RANGE EST. [facility] Comment on above: Order Comment: Order Date: 12/04/24Order Info: [id number] - MIACRE Performed By: #### L 502.0250 ####[facility] [address] [place], [address] Neurology Visit Reporton Neurology Visit Report Normal [facility] Random urine microalbumin me asurementOrdered By: Ja Cooley on 12-10-2024 Urine Random Microalbumin 17.7 mg/L NO RANGE EST. [facility] Urine albumin/creatinine rat io for detection of microalbuminuriaOrdered By: Ja Cooley on 12-10-2024 Urine Microalbumin/Creatinine Ratio 17.0 mg/g CRE <30 [facility] Urine creatinine measurement (mass/volume)Ordered By: Ja Cooley on 12-10-2024 Creatinine (U) [Mass/Vol] 104.00 mg/dL NO RANGE EST. [facility] Brain/Head without Contrasto n 12-05-2024 Brain/Head without Contrast Normal [facility] Emergency Department Summary on 12-05-2024 Emergency Department Summary Normal [facility] Spine Cervical without Contr ason 12-05-2024 Spine Cervical without Contras Normal [facility] 20-BO-Kgwmuzm DOrdered By: Chetan Cooley on 12-04-2024 Vitamin D 25-Hydroxy 47.5 ng/mL [facility] Comment on above: Vitamin D 25(OH) Sta tus Range Deficiency <20 ng/mL (50nmol/L) Insufficiency 20 - 30 ng/mL (50 - 75 nmol/L) Sufficiency 30 - 100 ng/mL (75 - 250 nmol/L) Toxicity >100 ng/mL (>250 nmol/L) Absolute lymphocyte countOrd ered By: Ja Cooley on 12-04-2024 Lymphocytes Auto (Unsp spec) [#/Vol] 3.42 10*3/uL 0.83-4.51 [facility] Absolute neutrophil countOrd ered By: Ja Cooley on 12-04-2024 Neutrophils (Bld) [#/Vol] 5.9 10*3/uL 2.0-7.7 [facility] Albumin to globulin ratioOrd ered By: Ja Cooley on 12-04-2024 Albumin/Globulin [Mass ratio] 1.0 {ratio} 0.9-2.4 [facility] Automated lymphocyte count a s percentage of total leukocytesOrdered By: Ja Cooley on 12-04-2024 Lymphocytes/100 WBC Auto (Unsp spec) 31.5 % [facility] Basophil percentageOrdered B y: Ja Mendozapriti on 12-04-2024 Basophils/100 WBC (Bld) 1.2 % High 0-1 [facility] Bilirubin, totalOrdered By: Ja Cooley on 12-04-2024 Bilirubin [Mass/Vol] 0.80 mg/dL 0.20-1.00 [facility] Comment on above: For patients on eltr ombopag therapy, use of Dimension Twisp TBIL is not recommended. Blood urea nitrogen (BUN)/cr eatinine ratioOrdered By: Ja Cooley on 12-04-2024 Urea nitrogen/Creatinine [Mass ratio] 19.7 mg/mg - [facility] CBC W/Diff, Automatedon 11-20 Absolute Lymph 3.42 X10 3/uL Normal 0.83-4.51 [facility] Comment on above: Order Comment: Order Date: 12/04/24Order Info: [id number] - CBCD Performed By: #### L 100.0100, L500.4100, L506.1000, L501.9985, L501.5200, L500.4050 ####[facility] [address] [place], [place], [phone] Absolute Neut 5.9 X10 3/uL Normal 2.0-7.7 [facility] Comment on above: Order Comment: Order Date: 12/04/24Order Info: [id number] - CBCD Performed By: #### L 100.0100, L500.4100, L506.1000, L501.9985, L501.5200, L500.4050 ####[facility] [address] [place], [address] Basophils/100 WBC (Bld) 1.2 % High 0-1 [facility] Comment on above: Order Comment: Order Date: 12/04/24Order Info: [id number] - CBCD Performed By: #### L 100.0100, L500.4100, L506.1000, L501.9985, L501.5200, L500.4050 ####[facility] [address] [place], [address] Eosinophils/100 WBC (Bld) 1.8 % Normal 0-5 [facility] Comment on above: Order Comment: Order Date: 12/04/24Order Info: [id number] - CBCD Performed By: #### L 100.0100, L500.4100, L506.1000, L501.9985, L501.5200, L500.4050 ####[facility] [address] [place], [address] Erythrocyte distribution width (RBC) [Ratio] 13.4 % Normal 11.6-14.6 [facility] Comment on above: Order Comment: Order Date: 12/04/24Order Info: [id number] - CBCD Performed By: #### L 100.0100, L500.4100, L506.1000, L501.9985, L501.5200, L500.4050 ####[facility] [address] [place], [place], [phone] Hematocrit (Bld) [Volume fraction] 47.1 % Normal 40-54 [facility] Comment on above: Order Comment: Order Date: 12/04/24Order Info: [id number] - CBCD Performed By: #### L 100.0100, L500.4100, L506.1000, L501.9985, L501.5200, L500.4050 ####[facility] [address] [place], [address] Hemoglobin (Bld) [Mass/Vol] 15.4 g/dL Normal 13.0-16.5 [facility] Comment on above: Order Comment: Order Date: 12/04/24Order Info: [id number] - CBCD Performed By: #### L 100.0100, L500.4100, L506.1000, L501.9985, L501.5200, L500.4050 ####[facility] [address] [place], [address] IG% 0.600 Normal 0.0-0.9 [facility] Comment on above: Order Comment: Order Date: 12/04/24Order Info: [id number] - CBCD Result Comment: IG% - Immature Granulocytes (promyelocytes, myelocytes andmetamyelocytes) > 1% indicates that a LEFT SHIFT is Present. Performed By: #### L 100.0100, L500.4100, L506.1000, L501.9985, L501.5200, L500.4050 ####[facility] [address] [place], [address] Lymphocytes/100 WBC (Bld) 31.5 % Normal 19-41 [facility] Comment on above: Order Comment: Order Date: 12/04/24Order Info: [id number] - CBCD Performed By: #### L 100.0100, L500.4100, L506.1000, L501.9985, L501.5200, L500.4050 ####[facility] [address] [place], [address] MCH (RBC) [Entitic mass] 30.4 pg Normal 27.0-32.0 [facility] Comment on above: Order Comment: Order Date: 12/04/24Order Info: [id number] - CBCD Performed By: #### L 100.0100, L500.4100, L506.1000, L501.9985, L501.5200, L500.4050 ####[facility] [address] [place], [address] MCHC (RBC) [Mass/Vol] 32.7 g/dL Normal 32-36 [facility] Comment on above: Order Comment: Order Date: 12/04/24Order Info: [id number] - CBCD Performed By: #### L 100.0100, L500.4100, L506.1000, L501.9985, L501.5200, L500.4050 ####[facility] [address] [place], [address] MCV (RBC) [Entitic vol] 92.9 fL Normal 80-94 [facility] Comment on above: Order Comment: Order Date: 12/04/24Order Info: [id number] - CBCD Performed By: #### L 100.0100, L500.4100, L506.1000, L501.9985, L501.5200, L500.4050 ####[facility] [address] [place], [address] Monocytes/100 WBC (Bld) 10.8 % High 0-10 [facility] Comment on above: Order Comment: Order Date: 12/04/24Order Info: [id number] - CBCD Performed By: #### L 100.0100, L500.4100, L506.1000, L501.9985, L501.5200, L500.4050 ####[facility] [address] [place], [address] Neutrophils/100 WBC (Bld) 54.1 % Normal 47-70 [facility] Comment on above: Order Comment: Order Date: 12/04/24Order Info: [id number] - CBCD Performed By: #### L 100.0100, L500.4100, L506.1000, L501.9985, L501.5200, L500.4050 ####[facility] [address] [place], [address] Nucleated RBC (Bld) [#/Vol] 0 10*3/uL Normal 0-5 [facility] Comment on above: Order Comment: Order Date: 12/04/24Order Info: [id number] - CBCD Performed By: #### L 100.0100, L500.4100, L506.1000, L501.9985, L501.5200, L500.4050 ####[facility] [address] [place], [address] Platelet mean volume (Bld) [Entitic vol] 10.8 fL Normal 6.2-12.0 [facility] Comment on above: Order Comment: Order Date: 12/04/24Order Info: [id number] - CBCD Performed By: #### L 100.0100, L500.4100, L506.1000, L501.9985, L501.5200, L500.4050 ####[facility] [address] [place], [address] Platelets (Bld) [#/Vol] 281 10*3/uL Normal 150-450 [facility] Comment on above: Order Comment: Order Date: 12/04/24Order Info: [id number] - CBCD Performed By: #### L 100.0100, L500.4100, L506.1000, L501.9985, L501.5200, L500.4050 ####[facility] [address] [place], [address] RBC (Bld) [#/Vol] 5.07 10*6/uL Normal 4.6-6.2 [facility] Comment on above: Order Comment: Order Date: 12/04/24Order Info: [id number] - CBCD Performed By: #### L 100.0100, L500.4100, L506.1000, L501.9985, L501.5200, L500.4050 ####[facility] [address] [place], [address] RDW SD 45.1 fl High 35.1-43.9 [facility] Comment on above: Order Comment: Order Date: 12/04/24Order Info: [id number] - CBCD Performed By: #### L 100.0100, L500.4100, L506.1000, L501.9985, L501.5200, L500.4050 ####[facility] [address] [place], [address] WBC (Bld) [#/Vol] 10.9 10*3/uL Normal 4.4-11.0 [facility] Comment on above: Order Comment: Order Date: 12/04/24Order Info: [id number] - CBCD Performed By: #### L 100.0100, L500.4100, L506.1000, L501.9985, L501.5200, L500.4050 ####[facility] [address] [place], [address] Carbon dioxide measurementOr dered By: Ja Cooley on 12-04-2024 CO2 [Moles/Vol] 29.0 mmol/L 21.0-32.0 [facility] Chloride measurementOrdered By: Ja Cooley on 12-04-2024 Chloride [Moles/Vol] 105 mmol/L 98-107 [facility] Comprehensive Metabolic Prof ilon 12-04-2024 Albumin [Mass/Vol] 3.7 g/dL Normal 3.2-5.0 [facility] Comment on above: Order Comment: Order Date: 12/04/24Order Info: [id number] - CMPOrder Info: [id number] - LIPIDOrder Info: [id number] - MG Performed By: #### L 100.0100, L500.4100, L506.1000, L501.9985, L501.5200, L500.4050 ####[facility] [address] [place], [address] Albumin/Globulin [Mass ratio] 1.0 {ratio} Normal 0.9-2.4 [facility] Comment on above: Order Comment: Order Date: 12/04/24Order Info: [id number] - CMPOrder Info: [id number] - LIPIDOrder Info: [id number] - MG Performed By: #### L 100.0100, L500.4100, L506.1000, L501.9985, L501.5200, L500.4050 ####[facility] [address] [place], [place], [address] ALK P 91 U/L Normal 45-117 [facility] Comment on above: Order Comment: Order Date: 12/04/24Order Info: [id number] - CMPOrder Info: [id number] - LIPIDOrder Info: [id number] - MG Performed By: #### L 100.0100, L500.4100, L506.1000, L501.9985, L501.5200, L500.4050 ####[facility] [address] [place], [address] ALT [Catalytic activity/Vol] 11 U/L Low 16-61 [facility] Comment on above: Order Comment: Order Date: 12/04/24Order Info: 07-1 - CMPOrder Info: [id number] - LIPIDOrder Info: [id number] - MG Performed By: #### L 100.0100, L500.4100, L506.1000, L501.9985, L501.5200, L500.4050 ####[facility] [address] [place], [address] AST [Catalytic activity/Vol] 13 U/L Low 15-37 [facility] Comment on above: Order Comment: Order Date: 12/04/24Order Info: [id number] - CMPOrder Info: [id number] - LIPIDOrder Info: [id number] - MG Performed By: #### L 100.0100, L500.4100, L506.1000, L501.9985, L501.5200, L500.4050 ####[facility] [address] [place], [address] Bilirubin [Mass/Vol] 0.80 mg/dL Normal 0.20-1.00 [facility] Comment on above: Order Comment: Order Date: 12/04/24Order Info: [id number] - CMPOrder Info: [id number] - LIPIDOrder Info: [id number] - MG Result Comment: For patients on eltrombopag therapy, use of Dimension Twisp TBIL is not recommended. Performed By: #### L 100.0100, L500.4100, L506.1000, L501.9985, L501.5200, L500.4050 ####[facility] [address] [place], [address] BUN/CRE 19.7 RATIO Normal 10-20 [facility] Comment on above: Order Comment: Order Date: 12/04/24Order Info: [id number] - CMPOrder Info: [id number] - LIPIDOrder Info: [id number] - MG Performed By: #### L 100.0100, L500.4100, L506.1000, L501.9985, L501.5200, L500.4050 ####[facility] [address] [place], [address] CA,Total 9.4 mg/dL Normal 8.5-10.1 [facility] Comment on above: Order Comment: Order Date: 12/04/24Order Info: [id number] - CMPOrder Info: [id number] - LIPIDOrder Info: [id number] - MG Performed By: #### L 100.0100, L500.4100, L506.1000, L501.9985, L501.5200, L500.4050 ####[facility] [address] [place], [address] Chloride [Moles/Vol] 105 mmol/L Normal 98-107 [facility] Comment on above: Order Comment: Order Date: 12/04/24Order Info: [id number] - CMPOrder Info: [id number] - LIPIDOrder Info: [id number] - MG Performed By: #### L 100.0100, L500.4100, L506.1000, L501.9985, L501.5200, L500.4050 ####[facility] [address] [place], [address] CO2 [Moles/Vol] 29.0 mmol/L Normal 21.0-32.0 [facility] Comment on above: Order Comment: Order Date: 12/04/24Order Info: [id number] - CMPOrder Info: [id number] - LIPIDOrder Info: [id number] - MG Performed By: #### L 100.0100, L500.4100, L506.1000, L501.9985, L501.5200, L500.4050 ####[facility] [address] [place], [address] Creatinine [Mass/Vol] 0.96 mg/dL Normal 0.70-1.30 [facility] Comment on above: Order Comment: Order Date: 12/04/24Order Info: 07-1 - CMPOrder Info: [id number] - LIPIDOrder Info: [id number] - MG Result Comment: The validity of the calculated GFR GFRAA in patients over70 years has not been determined. Clinical correlation isessential. Performed By: #### L 100.0100, L500.4100, L506.1000, L501.9985, L501.5200, L500.4050 ####[facility] [address] [place], [address] EST GFR - AA 97 mL/min Normal >60 [facility] Comment on above: Order Comment: Order Date: 12/04/24Order Info: [id number] - CMPOrder Info: [id number] - LIPIDOrder Info: [id number] - MG Result Comment: Afri can Croatian GFR Calc Performed By: #### L 100.0100, L500.4100, L506.1000, L501.9985, L501.5200, L500.4050 ####[facility] [address] [place], [address] GAP 5 Normal 5-15 [facility] Comment on above: Order Comment: Order Date: 12/04/24Order Info: [id number] - CMPOrder Info: [id number] - LIPIDOrder Info: [id number] - MG Performed By: #### L 100.0100, L500.4100, L506.1000, L501.9985, L501.5200, L500.4050 ####[facility] [address] [place], [address] GFR/1.73 sq M.predicted among non-blacks MDRD (S/P/Bld) [Vol rate/Area] 80 mL/min/{1.73_m2} Normal >60 [facility] Comment on above: Order Comment: Order Date: 12/04/24Order Info: [id number] - CMPOrder Info: [id number] - LIPIDOrder Info: [id number] - MG Result Comment: Non- GFR Calc Performed By: #### L 100.0100, L500.4100, L506.1000, L501.9985, L501.5200, L500.4050 ####[facility] [address] [place], [address] Globulin (S) [Mass/Vol] 3.7 g/dL Normal 2.2-4.2 [facility] Comment on above: Order Comment: Order Date: 12/04/24Order Info: [id number] - CMPOrder Info: [id number] - LIPIDOrder Info: [id number] - MG Performed By: #### L 100.0100, L500.4100, L506.1000, L501.9985, L501.5200, L500.4050 ####[facility] [address] [place], [address] Glucose [Mass/Vol] 48 mg/dL Low 74-106 [facility] Comment on above: Order Comment: Order Date: 12/04/24Order Info: [id number] - CMPOrder Info: [id number] - LIPIDOrder Info: [id number] - MG Result Comment: Gluc ose result less than 50 mg/dL suggests HYPOGLYCEMIA. Performed By: #### L 100.0100, L500.4100, L506.1000, L501.9985, L501.5200, L500.4050 ####[facility] [address] [place], [address] Potassium [Moles/Vol] 3.9 mmol/L Normal 3.5-5.1 [facility] Comment on above: Order Comment: Order Date: 12/04/24Order Info: [id number] - CMPOrder Info: [id number] - LIPIDOrder Info: [id number] - MG Performed By: #### L 100.0100, L500.4100, L506.1000, L501.9985, L501.5200, L500.4050 ####[facility] [address] [place], [address] Sodium [Moles/Vol] 139 mmol/L Normal 136-145 [facility] Comment on above: Order Comment: Order Date: 12/04/24Order Info: 07-1 - CMPOrder Info: [id number] - LIPIDOrder Info: [id number] - MG Performed By: #### L 100.0100, L500.4100, L506.1000, L501.9985, L501.5200, L500.4050 ####[facility] [address] [place], [address] T PROT 7.4 g/dL Normal 6.4-8.2 [facility] Comment on above: Order Comment: Order Date: 12/04/24Order Info: [id number] - CMPOrder Info: [id number] - LIPIDOrder Info: [id number] - MG Performed By: #### L 100.0100, L500.4100, L506.1000, L501.9985, L501.5200, L500.4050 ####[facility] [address] [place], [address] Urea nitrogen [Mass/Vol] 19 mg/dL High 7-18 [facility] Comment on above: Order Comment: Order Date: 12/04/24Order Info: [id number] - CMPOrder Info: [id number] - LIPIDOrder Info: [id number] - MG Performed By: #### L 100.0100, L500.4100, L506.1000, L501.9985, L501.5200, L500.4050 ####[facility] [address] [place], [address] Eosinophil percentageOrdered By: Ja Cooley on 12-04-2024 Eosinophils/100 WBC (Bld) 1.8 % 0-5 [facility] Erythrocyte distribution wid th ratioOrdered By: Ja Cooley on 12-04-2024 Erythrocyte distribution width (RBC) [Ratio] 13.4 % 11.6-14.6 [facility] Erythrocyte distribution wid th standard deviationOrdered By: Ja Cooley on 12-04-2024 Erythrocyte distribution width (RBC) [Entitic vol] 45.1 fL High 35.1-43.9 [facility] Erythrocyte distribution width (RBC) [Ratio] 45.1 fl High 35.1-43.9 [facility] Estimated glomerular filtrat ion rate (GFR) AmericanOrdered By: Ja Cooley on 12-04-2024 Estimated GFR (MDRD) Amer 97 mL/min >60 [facility] Comment on above: GFR Calc Glomerular filtration rate ( GFR) estimationOrdered By: Ja Cooley on 12-04-2024 Estimated GFR (MDRD) Non-Af Amer 80 mL/min >60 [facility] Comment on above: Non- GFR Calc GFR/1.73 sq M.predicted among non-blacks MDRD (S/P/Bld) [Vol rate/Area] 80 mL/min/{1.73_m2} >60 [facility] Comment on above: Non- GFR Calc Glucose measurementOrdered B y: Ja Cooley on 12-04-2024 Glucose [Mass/Vol] 48 mg/dL Low 74-106 [facility] Comment on above: Glucose result less than 50 mg/dL suggests HYPOGLYCEMIA. Hematocrit Auto (Bld) [Volum e fraction]Ordered By: Ja Cooley on 12-04-2024 Hematocrit (Bld) [Volume fraction] 47.1 % 40-54 [facility] Hemoglobin A1con 12-04-2024 HbA1c (Bld) [Mass fraction] 6.5 % High 3.8-5.6 [facility] Comment on above: Order Comment: Order Date: 12/04/24Order Info: [id number] - A1C Result Comment: Norm al < 5.7 % Prediabetic 5.7 - 6.4 % Diabetic >or= 6.5 % Please note range changes. Performed By: #### L 100.0100, L500.4100, L506.1000, L501.9985, L501.5200, L500.4050 ####[facility] [address] [place], [address] Hemoglobin A1c percentageOrd ered By: Ja Cooley on 12-04-2024 HbA1c (Bld) [Mass fraction] 6.5 % High 3.8-5.6 [facility] Comment on above: Normal < 5.7 % Predi abetic 5.7 - 6.4 % Diabetic >or= 6.5 % Please note range changes. Hemoglobin measurementOrdere d By: Ja Cooley on 12-04-2024 Hemoglobin (Bld) [Mass/Vol] 15.4 g/dL 13.0-16.5 [facility] High density lipoprotein (HD L) measurementOrdered By: Ja Cooley on 12-04-2024 Cholesterol in HDL [Mass/Vol] 45 mg/dL >40 [facility] Comment on above: The drugs N-Acetylcy steine and Metamizole may falsely depress this assay. Reference Range HDL <40 mg/dL Low HDL Cholesterol HDL >or= 60 mg/dL High HDL Cholesterol Immature granulocytes/100 WB C Auto (Bld)Ordered By: Ja Cooley on 12-04-2024 Immature granulocytes/100 WBC (Bld) 0.600 % 0.0-0.9 [facility] Comment on above: IG% - Immature Granu locytes (promyelocytes, myelocytes and metamyelocytes) > 1% indicates that a LEFT SHIFT is Present. Laboratory - Chemistry and C hemistry - challengeOrdered By: Ja Cooley on 12-04-2024 AST [Catalytic activity/Vol] 13 U/L Low 15-37 [facility] Lipid Profileon 12-04-2024 Cholesterol [Mass/Vol] 192 mg/dL Normal 200 [facility] Comment on above: Order Comment: Order Date: 12/04/24Order Info: [id number] - CMPOrder Info: [id number] - LIPIDOrder Info: [id number] - MG Result Comment: <200 mg/dL Desirable 200-240 mg/dL Borderline >240 mg/dL High Risk Performed By: #### L 100.0100, L500.4100, L506.1000, L501.9985, L501.5200, L500.4050 ####[facility] [address] [place], [address] Cholesterol in HDL [Mass/Vol] 45 mg/dL Normal [facility] Comment on above: Order Comment: Order Date: 12/04/24Order Info: [id number] - CMPOrder Info: [id number] - LIPIDOrder Info: [id number] - MG Result Comment: The drugs N-Acetylcysteine and Metamizole may falselydepress this assay. Reference Range HDL <40 mg/dL Low HDL Cholesterol HDL >or= 60 mg/dL High HDL Cholesterol Performed By: #### L 100.0100, L500.4100, L506.1000, L501.9985, L501.5200, L500.4050 ####[facility] [address] [place], [address] Cholesterol in LDL [Mass/Vol] 116 mg/dL Normal 0-130 [facility] Comment on above: Order Comment: Order Date: 12/04/24Order Info: [id number] - CMPOrder Info: [id number] - LIPIDOrder Info: [id number] - MG Performed By: #### L 100.0100, L500.4100, L506.1000, L501.9985, L501.5200, L500.4050 ####[facility] [address] [place], [address] Cholesterol in VLDL [Mass/Vol] 31 mg/dL Normal 5-40 [facility] Comment on above: Order Comment: Order Date: 12/04/24Order Info: [id number] - CMPOrder Info: [id number] - LIPIDOrder Info: [id number] - MG Performed By: #### L 100.0100, L500.4100, L506.1000, L501.9985, L501.5200, L500.4050 ####[facility] [address] [place], [address] Triglyceride [Mass/Vol] 153 mg/dL Normal [facility] Comment on above: Order Comment: Order Date: 12/04/24Order Info: [id number] - CMPOrder Info: [id number] - LIPIDOrder Info: [id number] - MG Result Comment: The drugs N-Acetylcysteine and Metamizole may falselydepress this assay.Serum Triglycerides Reference Interval Normal <150 mg/dL Borderline high 150 - 199 mg/dL High 200 - 499 mg/dL Very High > or = 500 mg/dL Performed By: #### L 100.0100, L500.4100, L506.1000, L501.9985, L501.5200, L500.4050 ####[facility] [address] [facility]. [place], [place], [id number] Low density lipoprotein (LDL ) cholesterol measurementOrdered By: Ja Cooley on 12-04-2024 Cholesterol in LDL [Mass/Vol] 116 mg/dL 0-130 [facility] Lymphocytes Auto (Unsp spec) [#/Vol]Ordered By: Ja Cooley on 12-04-2024 Lymphocytes (Bld) [#/Vol] 3.42 10*3/uL 0.83-4.5 1 [facility] Lymphocytes/100 WBC Auto (Un sp spec)Ordered By: Ja Cooley on 12-04-2024 Lymphocytes/100 WBC (Bld) 31.5 % 19-41 [facility] MCV (mean corpuscular volume ) determinationOrdered By: Ja Cooley on 12-04-2024 MCV (RBC) [Entitic vol] 92.9 fL 80-94 [facility] Magnesiumon 12-04-2024 Magnesium [Mass/Vol] 2.0 mg/dL Normal 1.6-2.6 [facility] Comment on above: Order Comment: Order Date: 12/04/24Order Info: [id number] - CMPOrder Info: [id number] - LIPIDOrder Info: [id number] - MG Performed By: #### L 100.0100, L500.4100, L506.1000, L501.9985, L501.5200, L500.4050 ####[facility] [address] [place], [address] Magnesium measurementOrdered By: Ja Cooley on 12-04-2024 Magnesium [Mass/Vol] 2.0 mg/dL 1.6-2.6 [facility] Mean corpuscular hemoglobin (MCH) determinationOrdered By: Ja Cooley on 12-04-2024 MCH (RBC) [Entitic mass] 30.4 pg 27.0-32.0 [facility] Mean corpuscular hemoglobin concentration (MCHC) determinationOrdered By: Ja Cooley on 12-04-2024 MCHC (RBC) [Mass/Vol] 32.7 g/dL 32-36 [facility] Mean platelet volume determi nationOrdered By: Ja Cooley on 12-04-2024 Platelet mean volume (Bld) [Entitic vol] 10.8 fL 6.2-12.0 [facility] Monocyte percentageOrdered B y: Ja Cooley on 12-04-2024 Monocytes/100 WBC (Bld) 10.8 % High 0-10 [facility] Neutrophil percentageOrdered By: Ja Cooley on 12-04-2024 Neutrophils/100 WBC (Bld) 54.1 % 47-70 [facility] Nucleated red blood cell per centageOrdered By: Ja Cooley on 12-04-2024 Nucleated RBC/100 WBC (Bld) [Ratio] 0 % 0-5 [facility] Platelet countOrdered By: Rimma Cooley on 12-04-2024 Platelets (Bld) [#/Vol] 281 10*3/uL 150-450 [facility] Potassium measurementOrdered By: Ja Cooley on 12-04-2024 Potassium [Moles/Vol] 3.9 mmol/L 3.5-5.1 [facility] RBC Auto (Bld) [#/Vol]Ordere d By: Ja Cooley on 12-04-2024 RBC (Bld) [#/Vol] 5.07 10*6/uL 4.6-6.2 [facility] Serum anion gap measurementO rdered By: Ja Cooley on 12-04-2024 Anion gap [Moles/Vol] 5 mmol/L -15 [facility] Serum globulin measurementOr dered By: Ja Cooley on 12-04-2024 Globulin (S) [Mass/Vol] 3.7 g/dL 2.2-4.2 [facility] Serum or plasma alanine max otransferase (ALT) measurementOrdered By: Ja Cooley on 12-04-2024 ALT [Catalytic activity/Vol] 11 U/L Low 16-61 [facility] Serum or plasma albumin walt urement (mass/volume)Ordered By: Ja Cooley on 12-04-2024 Albumin [Mass/Vol] 3.7 g/dL 3.2-5.0 [facility] Serum or plasma alkaline sarah sphatase measurementOrdered By: Ja Cooley on 12-04-2024 ALP [Catalytic activity/Vol] 91 U/L 45-117 [facility] Serum or plasma calcium walt urement (mass/volume)Ordered By: Ja Cooley on 12-04-2024 Calcium [Mass/Vol] 9.4 mg/dL 8.5-10.1 [facility] Serum or plasma cholesterol measurement (mass/volume)Ordered By: Ja Cooley on 12-04-2024 Cholesterol [Mass/Vol] 192 mg/dL <200 [facility] Comment on above: <200 mg/dL Desirable 200-240 mg/dL Borderline >240 mg/dL High Risk Serum or plasma creatinine m easurement (mass/volume)Ordered By: Ja Cooley on 12-04-2024 Creatinine [Mass/Vol] 0.96 mg/dL 0.70-1.30 [facility] Comment on above: The validity of the calculated GFR & GFRAA in patients over 70 years has not been determined. Clinical correlation is essential. Serum or plasma urea nitroge n measurement (mass/volume)Ordered By: Ja Cooley on 12-04-2024 Urea nitrogen [Mass/Vol] 19 mg/dL High 7-18 [facility] Sodium levelOrdered By: Ja Cooley on 12-04-2024 Sodium [Moles/Vol] 139 mmol/L 136-145 [facility] Total proteinOrdered By: Kwabena Cooley on 12-04-2024 Protein [Mass/Vol] 7.4 g/dL 6.4-8.2 [facility] Triglycerides measurementOrd ered By: Ja Cooley on 12-04-2024 Triglyceride [Mass/Vol] 153 mg/dL <199 [facility] Comment on above: The drugs N-Acetylcy steine and Metamizole may falsely depress this assay.Serum Triglycerides Reference Interval Normal <150 mg/dL Borderline high 150 - 199 mg/dL High 200 - 499 mg/dL Very High > or = 500 mg/dL Very low density lipoprotein (VLDL) cholesterol measurementOrdered By: Ja Cooley on 12-04-2024 Very low density lipoprotein (VLDL) cholesterol measurement 31 mg/dL 5-40 [facility] VLDL Cholesterol 31 mg/dL 5-40 [facility] Vitamin D,25 Hydroxyon 12-04 Vitamin D 25-OH 47.5 ng/mL Normal [facility] Comment on above: Order Comment: Order Date: 12/04/24Order Info: [id number] - [id number] Result Comment: Lisa min D 25(OH) Status Range Deficiency <20 ng/mL (50nmol/L) Insufficiency 20 - 30 ng/mL (50 - 75 nmol/L) Sufficiency 30 - 100 ng/mL (75 - 250 nmol/L) Toxicity >100 ng/mL (>250 nmol/L) Performed By: #### L 100.0100, L500.4100, L506.1000, L501.9985, L501.5200, L500.4050 ####[facility] [address], [address] White blood cell (WBC) count Ordered By: Ja Cooley on 12-04-2024 WBC (Bld) [#/Vol] 10.9 10*3/uL 4.4-11.0 [facility] Chest PA and Lateralon 12-02 Chest PA and Lateral Normal [facility] AST(SGOT)on 10-28-2024 AST [Catalytic activity/Vol] 9 U/L Low 15-37 [facility] Comment on above: Performed By: #### L 501.4405, L500.2500, L501.4100, L501.9985 ####[facility] [address] [place], [address] Alanine Aminotransferas (SGP T)on 10-28-2024 ALT [Catalytic activity/Vol] 8 U/L Low 16-61 [facility] Comment on above: Performed By: #### L 501.4405, L500.2500, L501.4100, L501.9985 ####[facility] [address] [place], [address] Basic Metabolic Profile (BMP )on 10-28-2024 BUN/CRE 26.5 RATIO High 10-20 [facility] Comment on above: Performed By: #### L 501.4405, L500.2500, L501.4100, L501.9985 ####[facility] [address] [place], [address] CA,Total 9.3 mg/dL Normal 8.5-10.1 [facility] Comment on above: Performed By: #### L 501.4405, L500.2500, L501.4100, L501.9985 ####[facility] [address] [place], [address] Chloride [Moles/Vol] 105 mmol/L Normal 98-107 [facility] Comment on above: Performed By: #### L 501.4405, L500.2500, L501.4100, L501.9985 ####[facility] [address] [place], [address] CO2 [Moles/Vol] 31.0 mmol/L Normal 21.0-32.0 [facility] Comment on above: Performed By: #### L 501.4405, L500.2500, L501.4100, L501.9985 ####[facility] [address] [place], [address] Creatinine [Mass/Vol] 0.91 mg/dL Normal 0.70-1.30 [facility] Comment on above: Result Comment: The validity of the calculated GFR GFRAA in patients over70 years has not been determined. Clinical correlation isessential. Performed By: #### L 501.4405, L500.2500, L501.4100, L501.9985 ####[facility] [address] [place], [address] EST GFR - AA 103 mL/min Normal >60 [facility] Comment on above: Result Comment: Afri can Croatian GFR Calc Performed By: #### L 501.4405, L500.2500, L501.4100, L501.9985 ####[facility] [address] [place], [address] GAP 5 Normal 5-15 [facility] Comment on above: Performed By: #### L 501.4405, L500.2500, L501.4100, L501.9985 ####[facility] [address] [place], [address] GFR/1.73 sq M.predicted among non-blacks MDRD (S/P/Bld) [Vol rate/Area] 86 mL/min/{1.73_m2} Normal >60 [facility] Comment on above: Result Comment: Non- GFR Calc Performed By: #### L 501.4405, L500.2500, L501.4100, L501.9985 ####[facility] [address] [place], [address] Glucose [Mass/Vol] 111 mg/dL High 74-106 [facility] Comment on above: Result Comment: Fast ing Glucose result from 100 to 125 mg/dLsuggests IMPAIRED HOMEOSTASIS per A.D.A. criteria. Performed By: #### L 501.4405, L500.2500, L501.4100, L501.9985 ####[facility] [address] [place], [address] Potassium [Moles/Vol] 3.4 mmol/L Low 3.5-5.1 [facility] Comment on above: Performed By: #### L 501.4405, L500.2500, L501.4100, L501.9985 ####[facility] [address] [place], [address] Sodium [Moles/Vol] 142 mmol/L Normal 136-145 [facility] Comment on above: Performed By: #### L 501.4405, L500.2500, L501.4100, L501.9985 ####[facility] [address] [place], [address] Urea nitrogen [Mass/Vol] 24 mg/dL High 7-18 [facility] Comment on above: Performed By: #### L 501.4405, L500.2500, L501.4100, L501.9985 ####[facility] [address] [place], [address] Blood urea nitrogen (BUN)/cr eatinine ratioOrdered By: Natasha Gregory on 10-28-2024 Urea nitrogen/Creatinine [Mass ratio] 26.5 mg/mg High 10-20 [facility] Carbon dioxide measurementOr dered By: Natasha Gregory on 10-28-2024 CO2 [Moles/Vol] 31.0 mmol/L 21.0-32.0 [facility] Chloride measurementOrdered By: Natasha Gregory on 10-28-2024 Chloride [Moles/Vol] 105 mmol/L 98-107 [facility] Estimated glomerular filtrat ion rate (GFR) AmericanOrdered By: Natasha Gregory on 10-28-2024 Estimated GFR (MDRD) Amer 103 mL/min >60 [facility] Comment on above: GFR Calc Glomerular filtration rate ( GFR) estimationOrdered By: Natasha Gregory on 10-28-2024 Estimated GFR (MDRD) Non-Af Amer 86 mL/min >60 [facility] Comment on above: Non- GFR Calc Glucose measurementOrdered B y: Natasha Gregory on 10-28-2024 Glucose [Mass/Vol] 111 mg/dL High 74-106 [facility] Comment on above: Fasting Glucose resu lt from 100 to 125 mg/dL suggests IMPAIRED HOMEOSTASIS per A.D.A. criteria. Hemoglobin A1con 10-28-2024 HbA1c (Bld) [Mass fraction] 6.4 % High 3.8-5.6 [facility] Comment on above: Result Comment: Norm al < 5.7 % Prediabetic 5.7 - 6.4 % Diabetic >or= 6.5 % Please note range changes. Performed By: #### L 501.4405, L500.2500, L501.4100, L501.9985 ####[facility] [address] [place], [place], [address] Hemoglobin A1c percentageOrd ered By: Ntaasha Gregory on 10-28-2024 HbA1c (Bld) [Mass fraction] 6.4 % High 3.8-5.6 [facility] Comment on above: Normal < 5.7 % Predi abetic 5.7 - 6.4 % Diabetic >or= 6.5 % Please note range changes. Laboratory - Chemistry and C hemistry - challengeOrdered By: Natasha Gregory on 10-28-2024 AST [Catalytic activity/Vol] 9 U/L Low 15-37 [facility] Potassium measurementOrdered By: Natasha Gregory on 10-28-2024 Potassium [Moles/Vol] 3.4 mmol/L Low 3.5-5.1 [facility] Serum anion gap measurementO rdered By: Natasha Gregory on 10-28-2024 Anion gap [Moles/Vol] 5 mmol/L 5-15 [facility] Serum or plasma alanine max otransferase (ALT) measurementOrdered By: Natasha Gregory on 10-28-2024 ALT [Catalytic activity/Vol] 8 U/L Low 16-61 [facility] Serum or plasma calcium walt urement (mass/volume)Ordered By: Natasha Gregory on 10-28-2024 Calcium [Mass/Vol] 9.3 mg/dL 8.5-10.1 [facility] Serum or plasma creatinine m easurement (mass/volume)Ordered By: Natasha Gregory on 10-28-2024 Creatinine [Mass/Vol] 0.91 mg/dL 0.70-1.30 [facility] Comment on above: The validity of the calculated GFR & GFRAA in patients over 70 years has not been determined. Clinical correlation is essential. Serum or plasma urea nitroge n measurement (mass/volume)Ordered By: Natasha Gregory on 10-28-2024 Urea nitrogen [Mass/Vol] 24 mg/dL High 7-18 [facility] Sodium levelOrdered By: Josefina Gregory on 10-28-2024 Sodium [Moles/Vol] 142 mmol/L 136-145 [facility] Emergency Department Summary on 10-12-2024 Emergency Department Summary Normal [facility] Ribs Uni Min 3V w/PA Cheston 10-12-2024 Ribs Uni Min 3V w/PA Chest Normal [facility] Chest PA and Lateralon 09-27 Chest PA and Lateral Normal [facility] Modified Barium Swallow Stud yon 09-20-2024 Modified Barium Swallow Study Normal [facility] MARIAH + Protein Elect, Serumon 09-05-2024 Albumin [Mass/Vol] 3.9 g/dL Normal 2.9-4.4 [facility] Comment on above: Order Comment: N Performed By: #### L 5009.3425, L3600.4030 ####[facility] [address] [place], [place], [id number] Albumin/Globulin [Mass ratio] 1.4 {ratio} Normal 0.7-1.7 [facility] Comment on above: Order Comment: N Performed By: #### L 3100.3425, L3600.4030 ####[facility] [address] [place], [place], [id number] [id number] 0.2 g/dL Normal 0.0-0.4 [facility] Comment on above: Order Comment: N Performed By: #### L 3100.3425, L3600.4030 ####[facility] [address] [place], [address] [id number] 0.8 g/dL Normal 0.4-1.0 [facility] Comment on above: Order Comment: N Performed By: #### L 3100.3425, L3600.4030 ####[facility] [address] [place], [address] BETA GLOBULIN 0.9 g/dL Normal 0.7-1.3 [facility] Comment on above: Order Comment: N Performed By: #### L 3100.3425, L3600.4030 ####[facility] [address] [place], [address] GAMMA GLOBULIN 0.9 g/dL Normal 0.4-1.8 [facility] Comment on above: Order Comment: N Performed By: #### L 3100.3425, L3600.4030 ####[facility] [address] [place], [address] Globulin (S) [Mass/Vol] 2.8 g/dL Normal 2.2-3.9 [facility] Comment on above: Order Comment: N Performed By: #### L 3100.3425, L3600.4030 ####[facility] [address] [place], [address] MARIAH RESULT,S Comment Normal . [facility] Comment on above: Order Comment: N Result Comment: No m onoclonality detected. Performed By: #### L 3100.3425, L3600.4030 ####[facility] [address] [place], [address] IMMUNOGLOB A QN 171 mg/dL Normal 61-437 [facility] Comment on above: Order Comment: N Performed By: #### L 3100.3425, L3600.4030 ####[facility] [address] [place], [address] IMMUNOGLOB G QN 946 mg/dL Normal 603-1613 [facility] Comment on above: Order Comment: N Performed By: #### L 3100.3425, L3600.4030 ####[facility] [address] [place], [address] IMMUNOGLOB M QN 100 mg/dL Normal 15-143 [facility] Comment on above: Order Comment: N Performed By: #### L 3100.3425, L3600.4030 ####[facility] [address] [place], [address] M-Jose Antonio Not Observed Normal Not Observed [facility] Comment on above: Order Comment: N Performed By: #### L 3100.3425, L3600.4030 ####[facility] [address] [place], [address] NOTE: Comment Normal . [facility] Comment on above: Order Comment: N Result Comment: Prot ein electrophoresis scan will follow via computer,mail, or audograph operator delivery. Performed By: #### L 3100.3425, L3600.4030 ####[facility] [address] [place], [address] Protein [Mass/Vol] 6.7 g/dL Normal 6.0-8.5 [facility] Comment on above: Order Comment: N Performed By: #### L 3100.3425, L3600.4030 ####[facility] [address] [place], [address] Immunofixation Urineon 09-05 MARIAH Urine Comment Normal . [facility] Comment on above: Order Comment: N Result Comment: No m onoclonality detected.Performed at: [facility] [address] [id number] Director: Vj Garcia PhD, Phone: [phone] Performed By: #### L 3100.3425, L3600.4030 ####[facility] [address] [place], [address] Neurology Visit Reporton Neurology Visit Report Normal [facility] Basophil percentageOrdered B y: Vick Santo on 03-25-2024 Bilirubin [Mass/Vol] 0.70 mg/dL 0.20-1.00 [facility] Comment on above: For patients on eltr ombopag therapy, use of Dimension Twisp TBIL is not recommended. Chloride [Moles/Vol] 104 mmol/L 98-107 [facility] Glucose [Mass/Vol] 260 mg/dL 74-106 [facility] Comment on above: Glucose result great er than or equal to 200 mg/dLsuggests DIABETES MELLITUS per A.D.A. criteria. Potassium [Moles/Vol] 3.9 mmol/L 3.5-5.1 [facility] Protein [Mass/Vol] 6.8 g/dL 6.4-8.2 [facility] Sodium [Moles/Vol] 138 mmol/L 136-145 [facility] Laboratory - Chemistry and C hemistry - challengeOrdered By: Vick Santo on 03-25-2024 Albumin/Globulin [Mass ratio] 1.1 {ratio} 0.9-2.4 [facility] ALP [Catalytic activity/Vol] 62 U/L 45-117 [facility] ALT [Catalytic activity/Vol] 13 U/L 16-61 [facility] CO2 [Moles/Vol] 28.0 mmol/L 21.0-32.0 [facility] Globulin (S) [Mass/Vol] 3.3 g/dL 2.2-4.2 [facility] Urea nitrogen/Creatinine [Mass ratio] 23.8 mg/mg 10-20 [facility] No Panel InformationOrdered By: Vick Santo on 03-25-2024 Estimated GFR (MDRD) Amer 92 mL/min >60 [facility] Comment on above: GFR Calc Estimated GFR (MDRD) Non-Af Amer 76 mL/min >60 [facility] Comment on above: Non- GFR Calc Serum or plasma calcium walt urement (mass/volume)Ordered By: Vick Santo on 03-25-2024 Calcium [Mass/Vol] 8.9 mg/dL 8.5-10.1 [facility] Serum or plasma creatinine m easurement (mass/volume)Ordered By: Vick Santo on 03-25-2024 Creatinine [Mass/Vol] 1.01 mg/dL 0.70-1.30 [facility] Comment on above: The validity of the calculated GFR & GFRAA in patients over 70 years has not been determined. Clinical correlation is essential. Serum or plasma urea nitroge n measurement (mass/volume)Ordered By: Vick Santo on 03-25-2024 Urea nitrogen [Mass/Vol] 24 mg/dL 7-18 [facility] Thin prep Papanicolaou smear with manual screeningOrdered By: Vick Santo on 03-25-2024 Thin prep Papanicolaou smear with manual screening 3.5 g/dL 3.2-5.0 [facility] Thin prep Papanicolaou smear with manual screening 11 U/L 15-37 [facility] Thin prep Papanicolaou smear with manual screening 6 5-15 [facility] Whole blood hemoglobin A1c/t otal hemoglobin ratio (mass fraction)Ordered By: Vick Santo on 03-25-2024 HbA1c (Bld) [Mass fraction] 6.1 % 3.8-5.6 [facility] Comment on above: Normal < 5.7 % Predi abetic 5.7 - 6.4 % Diabetic >or= 6.5 % Please note range changes. Basophil percentageOrdered B y: Ja Cooley on 02-27-2024 Chloride [Moles/Vol] 106 mmol/L 98-107 [facility] Glucose [Mass/Vol] 94 mg/dL 74-106 [facility] Potassium [Moles/Vol] 3.9 mmol/L 3.5-5.1 [facility] Sodium [Moles/Vol] 141 mmol/L 136-145 [facility] Laboratory - Chemistry and C hemistry - challengeOrdered By: Ja Cooley on 02-27-2024 ALT [Catalytic activity/Vol] 14 U/L 16-61 [facility] CO2 [Moles/Vol] 28.0 mmol/L 21.0-32.0 [facility] Urea nitrogen/Creatinine [Mass ratio] 22.1 mg/mg 10-20 [facility] No Panel InformationOrdered By: Ja Cooley on 02-27-2024 Estimated GFR (MDRD) Amer 104 mL/min >60 [facility] Comment on above: GFR Calc Estimated GFR (MDRD) Non-Af Amer 86 mL/min >60 [facility] Comment on above: Non- GFR Calc Serum or plasma calcium walt urement (mass/volume)Ordered By: Ja Cooley on 02-27-2024 Calcium [Mass/Vol] 9.3 mg/dL 8.5-10.1 [facility] Serum or plasma creatinine m easurement (mass/volume)Ordered By: Ja Cooley on 02-27-2024 Creatinine [Mass/Vol] 0.90 mg/dL 0.70-1.30 [facility] Comment on above: The validity of the calculated GFR & GFRAA in patients over 70 years has not been determined. Clinical correlation is essential. Serum or plasma urea nitroge n measurement (mass/volume)Ordered By: Ja Cooley on 02-27-2024 Urea nitrogen [Mass/Vol] 20 mg/dL 7-18 [facility] Thin prep Papanicolaou smear with manual screeningOrdered By: Ja Cooley on 02-27-2024 Thin prep Papanicolaou smear with manual screening 15 U/L 15-37 [facility] Thin prep Papanicolaou smear with manual screening 7 5-15 [facility] Whole blood hemoglobin A1c/t otal hemoglobin ratio (mass fraction)Ordered By: Ja Cooley on 02-27-2024 HbA1c (Bld) [Mass fraction] 6.1 % 3.8-5.6 [facility] Comment on above: Normal < 5.7 % Predi abetic 5.7 - 6.4 % Diabetic >or= 6.5 % Please note range changes. Absolute lymphocyte countOrd ered By: Ja Cooley on 12-15-2023 Lymphocytes Auto (Unsp spec) [#/Vol] 3.13 10*3/uL 0.83-4.51 [facility] Automated lymphocyte count a s percentage of total leukocytesOrdered By: Ja Cooley on 12-15-2023 Lymphocytes/100 WBC Auto (Unsp spec) 38.1 % 19-41 [facility] Basophil percentageOrdered B y: Ja Cooley on 12-15-2023 Basophils/100 WBC (Bld) 0.7 % 0-1 [facility] Bilirubin [Mass/Vol] 0.80 mg/dL 0.20-1.00 [facility] Comment on above: For patients on eltr ombopag therapy, use of Dimension Twisp TBIL is not recommended. Chloride [Moles/Vol] 107 mmol/L 98-107 [facility] Cholesterol [Mass/Vol] 136 mg/dL <200 [facility] Comment on above: <200 mg/dL Desirable 200-240 mg/dL Borderline >240 mg/dL High Risk Eosinophils/100 WBC (Bld) 1.8 % 0-5 [facility] Glucose [Mass/Vol] 87 mg/dL 74-106 [facility] Hemoglobin (Bld) [Mass/Vol] 15.3 g/dL 13.0-16.5 [facility] Monocytes/100 WBC (Bld) 10.5 % 0-10 [facility] Neutrophils (Bld) [#/Vol] 4.0 10*3/uL 2.0-7.7 [facility] Neutrophils/100 WBC (Bld) 48.4 % 47-70 [facility] Potassium [Moles/Vol] 3.7 mmol/L 3.5-5.1 [facility] Protein [Mass/Vol] 7.2 g/dL 6.4-8.2 [facility] Sodium [Moles/Vol] 140 mmol/L 136-145 [facility] Triglyceride [Mass/Vol] 127 mg/dL <199 [facility] Comment on above: The drugs N-Acetylcy steine and Metamizole may falsely depress this assay.Serum Triglycerides Reference Interval Normal <150 mg/dL Borderline high 150 - 199 mg/dL High 200 - 499 mg/dL Very High > or = 500 mg/dL WBC (Bld) [#/Vol] 8.2 10*3/uL 4.4-11.0 [facility] Determination of erythrocyte mean corpuscular volume (MCV)Ordered By: Ja Cooley on 12-15-2023 MCV (RBC) [Entitic vol] 90.0 fL 80-94 [facility] Erythrocyte distribution wid th ratioOrdered By: Ja Cooley on 12-15-2023 Erythrocyte distribution width (RBC) [Ratio] 13.2 % 11.6-14.6 [facility] Erythrocyte distribution wid th standard deviationOrdered By: Ja Cooley on 12-15-2023 Erythrocyte distribution width (RBC) [Entitic vol] 43.5 fL 35.1-43.9 [facility] Hematocrit Auto (Bld) [Volum e fraction]Ordered By: Ja Cooley on 12-15-2023 Hematocrit (Bld) [Volume fraction] 46.1 % 40-54 [facility] High density lipoprotein (HD L) measurementOrdered By: Ja Cooley on 12-15-2023 Cholesterol in HDL (Body fld) [Mass/Vol] 50 mg/dL >40 [facility] Comment on above: The drugs N-Acetylcy steine and Metamizole may falsely depress this assay. Reference Range HDL <40 mg/dL Low HDL Cholesterol HDL >or= 60 mg/dL High HDL Cholesterol Immature granulocytes/100 WB C Auto (Bld)Ordered By: Ja Cooley on 12-15-2023 Immature granulocytes/100 WBC (Bld) 0.500 % 0.0-0.9 [facility] Comment on above: IG% - Immature Granu locytes (promyelocytes, myelocytes and metamyelocytes) > 1% indicates that a LEFT SHIFT is Present. Laboratory - Chemistry and C hemistry - challengeOrdered By: Ja Cooley on 12-15-2023 Albumin/Globulin [Mass ratio] 1.1 {ratio} 0.9-2.4 [facility] ALP [Catalytic activity/Vol] 67 U/L 45-117 [facility] ALT [Catalytic activity/Vol] 12 U/L 16-61 [facility] CO2 [Moles/Vol] 29.0 mmol/L 21.0-32.0 [facility] Globulin (S) [Mass/Vol] 3.5 g/dL 2.2-4.2 [facility] Magnesium [Mass/Vol] 1.9 mg/dL 1.6-2.6 [facility] Urea nitrogen/Creatinine [Mass ratio] 19.3 mg/mg 10-20 [facility] Laboratory - Hematology and Cell countsOrdered By: Ja Cooley on 12-15-2023 MCH (RBC) [Entitic mass] 29.9 pg 27.0-32.0 [facility] MCHC (RBC) [Mass/Vol] 33.2 g/dL 32-36 [facility] Nucleated RBC/100 WBC (Bld) [Ratio] 0 % 0-5 [facility] Platelets (Bld) [#/Vol] 240 10*3/uL 150-450 [facility] Low density lipoprotein (LDL ) cholesterol measurementOrdered By: aJ Cooley on 12-15-2023 Cholesterol in LDL (Body fld) [Moles/Vol] 61 mg/dL 0-130 [facility] No Panel InformationOrdered By: Ja Cooley on 12-15-2023 Estimated GFR (MDRD) Amer 101 mL/min >60 [facility] Comment on above: GFR Calc Estimated GFR (MDRD) Non-Af Amer 83 mL/min >60 [facility] Comment on above: Non- GFR Calc Platelet mean volume Parish-Ec ker (Bld) [Entitic vol]Ordered By: Ja Cooley on 12-15-2023 Platelet mean volume (Bld) [Entitic vol] 11.1 fL 6.2-12.0 [facility] RBC Auto (Bld) [#/Vol]Ordere d By: Ja Cooley on 12-15-2023 RBC (Bld) [#/Vol] 5.12 10*6/uL 4.6-6.2 [facility] Serum or plasma calcium walt urement (mass/volume)Ordered By: Ja Cooley on 12-15-2023 Calcium [Mass/Vol] 9.2 mg/dL 8.5-10.1 [facility] Serum or plasma creatinine m easurement (mass/volume)Ordered By: Ja Cooley on 12-15-2023 Creatinine [Mass/Vol] 0.93 mg/dL 0.70-1.30 [facility] Comment on above: The validity of the calculated GFR & GFRAA in patients over 70 years has not been determined. Clinical correlation is essential. Serum or plasma thyroid stim ulating hormone (TSH) measurement (units/volume)Ordered By: Ja Cooley on 12-15-2023 TSH Qn 1.60 uIU/mL 0.358-3.74 [facility] Serum or plasma urea nitroge n measurement (mass/volume)Ordered By: Ja Cooley on 12-15-2023 Urea nitrogen [Mass/Vol] 18 mg/dL 7-18 [facility] Thin prep Papanicolaou smear with manual screeningOrdered By: Ja Cooley on 12-15-2023 Thin prep Papanicolaou smear with manual screening 3.7 g/dL 3.2-5.0 [facility] Thin prep Papanicolaou smear with manual screening 14 U/L 15-37 [facility] Thin prep Papanicolaou smear with manual screening 4 5-15 [facility] Very low density lipoprotein (VLDL) cholesterol measurementOrdered By: Ja Cooley on 12-15-2023 Cholesterol in VLDL Calc [Moles/Vol] 25 mg/dL 5-40 [facility] Whole blood hemoglobin A1c/t otal hemoglobin ratio (mass fraction)Ordered By: Ja Cooley on 12-15-2023 HbA1c (Bld) [Mass fraction] 5.9 % 3.8-5.6 [facility] Comment on above: Normal < 5.7 % Predi abetic 5.7 - 6.4 % Diabetic >or= 6.5 % Please note range changes. Albumin Elph [Mass/Vol]Order ed By: Vick Santo on 11-23-2023 Albumin [Mass/Vol] 3.6 g/dL 2.9-4.4 [facility] Basophil percentageOrdered B y: Vick Santo on 11-23-2023 Basophil percentage Comment: . [facility] Comment on above: Presence of monoclon al protein is unclear at this time. Suggestrepeat in 3 to 6 months if clinically indicated.Performed at: [employer] [facility] [id number] Director: Vj Garcia PhD, Phone: [phone] Interpretation of serum or p lasma protein pattern by immunofixation (narrative resultOrdered By: Vick Santo on 11-23-2023 Protein Fractions Immunofixation Blanco [Interp] Not Observed g/dL Not Observed [facility] No Panel InformationOrdered By: Vick Santo on 11-23-2023 Addendum Document Comment . [facility] Comment on above: Protein electrophore sis scan will follow via computer,mail, or audograph operator delivery. Serum [id number] measu rement by electrophoresisOrdered By: Vick Santo on 11-23-2023 Alpha 1 globulin Elph [Mass/Vol] 0.4 g/dL 0.0-0.4 [facility] Alpha 1 globulin Elph [Mass/Vol] 1.0 g/dL 0.4-1.0 [facility] Serum globulin measurement ( mass/volume)Ordered By: Vick Santo on 11-23-2023 Globulin (S) [Mass/Vol] 3.1 g/dL 2.2-3.9 [facility] Serum or plasma IgA measurem ent (mass/volume)Ordered By: Vick Santo on 11-23-2023 IgA [Mass/Vol] 167 mg/dL 61-437 [facility] Serum or plasma IgG measurem ent (mass/volume)Ordered By: Vick Santo on 11-23-2023 IgG [Mass/Vol] 849 mg/dL 603-1613 [facility] Serum or plasma IgM measurem ent (mass/volume)Ordered By: Vick Santo on 11-23-2023 IgM [Mass/Vol] 91 mg/dL 15-143 [facility] Serum or plasma beta globuli n measurement by electrophoresis (mass/volume)Ordered By: Vick Santo on 11-23-2023 Beta globulin Elph [Mass/Vol] 1.0 g/dL 0.7-1.3 [facility] Serum or plasma gamma globul in measurement by electrophoresis (mass/volume)Ordered By: Vick Santo on 11-23-2023 Gamma globulin Elph [Mass/Vol] 0.7 g/dL 0.4-1.8 [facility] Serum or plasma immunoelectr ophoresis interpretation (nominal result)Ordered By: Vick Santo on 11-23-2023 Interpretation IEP [Interp] Comment . [facility] Comment on above: No monoclonality det ected. Thin prep Papanicolaou smear with manual screeningOrdered By: Vick Gloverdenys on 11-23-2023 Thin prep Papanicolaou smear with manual screening 1.2 0.7-1.7 [facility] Total protein bloodOrdered B y: Vick Santo on 11-23-2023 Protein [Mass/Vol] 6.7 g/dL 6.0-8.5 [facility] Basophil percentageOrdered B y: Natasha Gregory on 10-31-2023 Chloride [Moles/Vol] 107 mmol/L 98-107 [facility] Glucose [Mass/Vol] 102 mg/dL 74-106 [facility] Comment on above: Fasting Glucose resu lt from 100 to 125 mg/dL suggests IMPAIRED HOMEOSTASIS per A.D.A. criteria. Potassium [Moles/Vol] 3.6 mmol/L 3.5-5.1 [facility] Sodium [Moles/Vol] 142 mmol/L 136-145 [facility] Laboratory - Chemistry and C hemistry - challengeOrdered By: Natasha Gregory on 10-31-2023 ALT [Catalytic activity/Vol] 11 U/L 16-61 [facility] CO2 [Moles/Vol] 28.0 mmol/L 21.0-32.0 [facility] Urea nitrogen/Creatinine [Mass ratio] 22.7 mg/mg 10-20 [facility] No Panel InformationOrdered By: Natasha Gregory on 10-31-2023 Estimated GFR (MDRD) Amer 101 mL/min >60 [facility] Comment on above: GFR Calc Estimated GFR (MDRD) Non-Af Amer 84 mL/min >60 [facility] Comment on above: Non- GFR Calc Serum or plasma calcium walt urement (mass/volume)Ordered By: Natasha Gregory on 10-31-2023 Calcium [Mass/Vol] 8.8 mg/dL 8.5-10.1 [facility] Serum or plasma creatinine m easurement (mass/volume)Ordered By: Natasha Gregory on 10-31-2023 Creatinine [Mass/Vol] 0.93 mg/dL 0.70-1.30 [facility] Comment on above: The validity of the calculated GFR & GFRAA in patients over 70 years has not been determined. Clinical correlation is essential. Serum or plasma urea nitroge n measurement (mass/volume)Ordered By: Natasha Gregory on 10-31-2023 Urea nitrogen [Mass/Vol] 21 mg/dL 7-18 [facility] Thin prep Papanicolaou smear with manual screeningOrdered By: Natasha Gregory on 10-31-2023 Thin prep Papanicolaou smear with manual screening 10 U/L 15-37 [facility] Thin prep Papanicolaou smear with manual screening 7 5-15 [facility] Whole blood hemoglobin A1c/t otal hemoglobin ratio (mass fraction)Ordered By: Natasha Gregory on 10-31-2023 HbA1c (Bld) [Mass fraction] 5.7 % 3.8-5.6 [facility] Comment on above: Normal < 5.7 % Predi abetic 5.7 - 6.4 % Diabetic >or= 6.5 % Please note range changes. Basophil percentageOrdered B y: Natasha Gregory on 08-03-2023 Chloride [Moles/Vol] 108 mmol/L 98-107 [facility] Cholesterol [Mass/Vol] 127 mg/dL <200 [facility] Comment on above: <200 mg/dL Desirable 200-240 mg/dL Borderline >240 mg/dL High Risk Glucose [Mass/Vol] 66 mg/dL 74-106 [facility] Potassium [Moles/Vol] 3.5 mmol/L 3.5-5.1 [facility] Sodium [Moles/Vol] 139 mmol/L 136-145 [facility] Triglyceride [Mass/Vol] 101 mg/dL <199 [facility] Comment on above: The drugs N-Acetylcy steine and Metamizole may falsely depress this assay.Serum Triglycerides Reference Interval Normal <150 mg/dL Borderline high 150 - 199 mg/dL High 200 - 499 mg/dL Very High > or = 500 mg/dL Laboratory - Chemistry and C hemistry - challengeOrdered By: Natasha Gregory on 08-03-2023 ALT [Catalytic activity/Vol] 11 U/L 16-61 [facility] CO2 [Moles/Vol] 26.0 mmol/L 21.0-32.0 [facility] Urea nitrogen/Creatinine [Mass ratio] 19.8 mg/mg 10-20 [facility] No Panel InformationOrdered By: Natasha Gregory on 08-03-2023 Urine Microalbumin/Creatinine Ratio 14.9 mg/g CRE <30 [facility] Estimated GFR (MDRD) Amer 97 mL/min >60 [facility] Comment on above: GFR Calc Estimated GFR (MDRD) Non-Af Amer 81 mL/min >60 [facility] Comment on above: Non- GFR Calc Thyroid Stimulating Hormone (TSH) 1.96 uIU/mL 0.358-3.74 [facility] Serum or plasma calcium walt urement (mass/volume)Ordered By: Natasha Gregory on 08-03-2023 Calcium [Mass/Vol] 9.0 mg/dL 8.5-10.1 [facility] Serum or plasma cholesterol in HDL measurement (mass/volume)Ordered By: Natasha Gregory on 08-03-2023 Cholesterol in HDL [Mass/Vol] 49 mg/dL >40 [facility] Comment on above: The drugs N-Acetylcy steine and Metamizole may falsely depress this assay. Reference Range HDL <40 mg/dL Low HDL Cholesterol HDL >or= 60 mg/dL High HDL Cholesterol Serum or plasma cholesterol in VLDL measurement (mass/volume)Ordered By: Natasha Gregory on 08-03-2023 Cholesterol in VLDL [Mass/Vol] 20 mg/dL 5-40 [facility] Serum or plasma creatinine m easurement (mass/volume)Ordered By: Natasha Gregory on 08-03-2023 Creatinine [Mass/Vol] 0.96 mg/dL 0.70-1.30 [facility] Comment on above: The validity of the calculated GFR & GFRAA in patients over 70 years has not been determined. Clinical correlation is essential. Serum or plasma low density lipoprotein (LDL) cholesterol measurement (mass/volume)Ordered By: Natasha Gregory on 08-03-2023 Cholesterol in LDL [Mass/Vol] 58 mg/dL 0-130 [facility] Serum or plasma urea nitroge n measurement (mass/volume)Ordered By: Natasha Gregory on 08-03-2023 Urea nitrogen [Mass/Vol] 19 mg/dL 7-18 [facility] Thin prep Papanicolaou smear with manual screeningOrdered By: Natasha Gregory on 08-03-2023 Thin prep Papanicolaou smear with manual screening 18.2 mg/L NO RANGE EST. [facility] Thin prep Papanicolaou smear with manual screening 9 U/L 15-37 [facility] Thin prep Papanicolaou smear with manual screening 5 5-15 [facility] Urine creatinine measurement (mass/volume)Ordered By: Natasha Gregory on 08-03-2023 Creatinine (U) [Mass/Vol] 122.00 mg/dL NO RANGE EST. [facility] Whole blood hemoglobin A1c/t otal hemoglobin ratio (mass fraction)Ordered By: Natasha Gregory on 08-03-2023 HbA1c (Bld) [Mass fraction] 6.2 % 3.8-5.6 [facility] Comment on above: Normal < 5.7 % Predi abetic 5.7 - 6.4 % Diabetic >or= 6.5 % Please note range changes. Basophil percentageOrdered B y: Dr. Santo on 05-09-2023 WBC (Bld) [#/Vol] 10.2 10*3/uL 4.4-11.0 [facility] Blood erythrocytes count (nu mber/volume)Ordered By: Dr. Santo on 05-09-2023 RBC (Bld) [#/Vol] 4.60 10*6/uL 4.6-6.2 [facility] Blood hemoglobin measurement (mass/volume)Ordered By: Dr. Santo on 05-09-2023 Hemoglobin (Bld) [Mass/Vol] 14.1 g/dL 13.0-16.5 [facility] Blood platelet mean volumeOr dered By: Dr. Santo on 05-09-2023 Platelet mean volume (Bld) [Entitic vol] 10.7 fL 6.2-12.0 [facility] Determination of erythrocyte mean corpuscular volume (MCV)Ordered By: Dr. Santo on 05-09-2023 MCV (RBC) [Entitic vol] 90.9 fL 80-94 [facility] Hematocrit Auto (Bld) [Volum e fraction]Ordered By: Dr. Santo on 05-09-2023 Hematocrit (Bld) [Volume fraction] 41.8 % 40-54 [facility] Laboratory - Chemistry and C hemistry - challengeOrdered By: Dr. Santo on 05-09-2023 Cobalamin (Vitamin B12) [Mass/Vol] 281 pg/mL 211-911 [facility] Laboratory - Hematology and Cell countsOrdered By: Dr. Santo on 05-09-2023 Erythrocyte distribution width (RBC) [Entitic vol] 44.1 fL 35.1-43.9 [facility] Erythrocyte distribution width (RBC) [Ratio] 13.3 % 11.6-14.6 [facility] MCH (RBC) [Entitic mass] 30.7 pg 27.0-32.0 [facility] MCHC Auto (RBC) [Mass/Vol]Or dered By: Dr. Santo on 05-09-2023 MCHC (RBC) [Mass/Vol] 33.7 g/dL 32-36 [facility] No Panel InformationOrdered By: Vick Santo on 05-09-2023 Free Lambda Light Chains, Quant 20.2 mg/L 5.7-26.3 [facility] Whole Blood Vitamin B1 Level 118.1 nmol/L 66.5-200.0 [facility] Comment on above: Performed at: [address] [id number] Director: Vj Garcia PhD, Phone: [phone] at: [facility] [id number] Director: Sherine Mendez MD, Phone: [phone] No Panel InformationOrdered By: Dr. Santo on 05-09-2023 Thyroid Stimulating Hormone (TSH) 2.11 uIU/mL 0.358-3.74 [facility] Platelets bldOrdered By: Dr. Santo on 05-09-2023 Platelets (Bld) [#/Vol] 285 10*3/uL 150-450 [facility] Serum immunoglobulin kappa l ight chains/immunoglobulin lambda light chains mass ratioOrdered By: Vick Santo on 05-09-2023 Immunoglobulin light chains.kappa/Immunoglobul in light chains.lambda (S) [Mass ratio] 1.69 0.26-1.65 [facility] Serum or plasma folate measu rement (mass/volume)Ordered By: Dr. Santo on 05-09-2023 Folate [Mass/Vol] 11.40 ng/mL 3.1-55.4 [facility] Serum or plasma immunoglobul in kappa light chains measurement (mass/volume)Ordered By: Vick Santo on 05-09-2023 Immunoglobulin light chains.kappa [Mass/Vol] 34.1 mg/L 3.3-19.4 [facility] Basophil percentageOrdered B y: Dr. Gregory on 05-01-2023 Chloride [Moles/Vol] 107 mmol/L 98-107 [facility] Glucose [Mass/Vol] 98 mg/dL 74-106 [facility] Potassium [Moles/Vol] 3.8 mmol/L 3.5-5.1 [facility] Sodium [Moles/Vol] 140 mmol/L 136-145 [facility] Laboratory - Chemistry and C hemistry - challengeOrdered By: Dr. Gregory on 05-01-2023 ALT [Catalytic activity/Vol] 13 U/L 16-61 [facility] CO2 [Moles/Vol] 26.0 mmol/L 21.0-32.0 [facility] Urea nitrogen/Creatinine [Mass ratio] 23.4 mg/mg 10-20 [facility] No Panel InformationOrdered By: Dr. Gregory on 05-01-2023 Estimated GFR (MDRD) Amer 95 mL/min >60 [facility] Comment on above: GFR Calc Estimated GFR (MDRD) Non-Af Amer 78 mL/min >60 [facility] Comment on above: Non- GFR Calc Serum or plasma calcium walt urement (mass/volume)Ordered By: Dr. Gregory on 05-01-2023 Calcium [Mass/Vol] 9.0 mg/dL 8.5-10.1 [facility] Serum or plasma creatinine m easurement (mass/volume)Ordered By: Dr. Gregory on 05-01-2023 Creatinine [Mass/Vol] 0.98 mg/dL 0.70-1.30 [facility] Comment on above: The validity of the calculated GFR & GFRAA in patients over 70 years has not been determined. Clinical correlation is essential. Serum or plasma urea nitroge n measurement (mass/volume)Ordered By: Dr. Gregory on 05-01-2023 Urea nitrogen [Mass/Vol] 23 mg/dL 7-18 [facility] Thin prep Papanicolaou smear with manual screeningOrdered By: Dr. Gregory on 05-01-2023 Thin prep Papanicolaou smear with manual screening 12 U/L 15-37 [facility] Thin prep Papanicolaou smear with manual screening 7 5-15 [facility] Whole blood hemoglobin A1c/t otal hemoglobin ratio (mass fraction)Ordered By: Dr. Gregory on 05-01-2023 HbA1c (Bld) [Mass fraction] 6.2 % 3.8-5.6 [facility] Comment on above: Normal < 5.7 % Predi abetic 5.7 - 6.4 % Diabetic >or= 6.5 % Please note range changes. Absolute lymphocyte countOrd ered By: Dr. Cooley on 02-21-2023 Lymphocytes Auto (Unsp spec) [#/Vol] 3.36 10*3/uL 0.83-4.51 [facility] Basophil percentageOrdered B y: Dr. Cooley on 02-21-2023 Basophils/100 WBC (Bld) 0.7 % 0-1 [facility] Bilirubin [Mass/Vol] 0.60 mg/dL 0.20-1.00 [facility] Comment on above: For patients on eltr ombopag therapy, use of Dimension Twisp TBIL is not recommended. Chloride [Moles/Vol] 104 mmol/L 98-107 [facility] Cholesterol [Mass/Vol] 133 mg/dL <200 [facility] Comment on above: <200 mg/dL Desirable 200-240 mg/dL Borderline >240 mg/dL High Risk Eosinophils/100 WBC (Bld) 1.5 % 0-5 [facility] Glucose [Mass/Vol] 232 mg/dL 74-106 [facility] Comment on above: Glucose result great er than or equal to 200 mg/dLsuggests DIABETES MELLITUS per A.D.A. criteria. Neutrophils (Bld) [#/Vol] 5.4 10*3/uL 2.0-7.7 [facility] Neutrophils/100 WBC (Bld) 53.2 % 47-70 [facility] Potassium [Moles/Vol] 4.0 mmol/L 3.5-5.1 [facility] Protein [Mass/Vol] 6.8 g/dL 6.4-8.2 [facility] Sodium [Moles/Vol] 137 mmol/L 136-145 [facility] Triglyceride [Mass/Vol] 117 mg/dL <199 [facility] Comment on above: The drugs N-Acetylcy steine and Metamizole may falsely depress this assay.Serum Triglycerides Reference Interval Normal <150 mg/dL Borderline high 150 - 199 mg/dL High 200 - 499 mg/dL Very High > or = 500 mg/dL WBC (Bld) [#/Vol] 10.1 10*3/uL 4.4-11.0 [facility] Blood erythrocytes count (nu mber/volume)Ordered By: Dr. Cooley on 02-21-2023 RBC (Bld) [#/Vol] 4.56 10*6/uL 4.6-6.2 [facility] Blood hemoglobin measurement (mass/volume)Ordered By: Dr. Cooley on 02-21-2023 Hemoglobin (Bld) [Mass/Vol] 14.0 g/dL 13.0-16.5 [facility] Blood lymphocytes/100 leukoc ytesOrdered By: Dr. Cooley on 02-21-2023 Lymphocytes/100 WBC (Bld) 33.3 % 19-41 [facility] Blood monocytes/100 leukocyt esOrdered By: Dr. Cooley on 02-21-2023 Monocytes/100 WBC (Bld) 10.4 % 0-10 [facility] Blood platelet mean volumeOr dered By: Dr. Cooley on 02-21-2023 Platelet mean volume (Bld) [Entitic vol] 10.2 fL 6.2-12.0 [facility] Determination of erythrocyte mean corpuscular volume (MCV)Ordered By: Dr. Cooley on 02-21-2023 MCV (RBC) [Entitic vol] 92.5 fL 80-94 [facility] Hematocrit Auto (Bld) [Volum e fraction]Ordered By: Dr. Cooley on 02-21-2023 Hematocrit (Bld) [Volume fraction] 42.2 % 40-54 [facility] Laboratory - Chemistry and C hemistry - challengeOrdered By: Dr. Cooley on 02-21-2023 ALP [Catalytic activity/Vol] 68 U/L 45-117 [facility] ALT [Catalytic activity/Vol] 19 U/L 16-61 [facility] CO2 [Moles/Vol] 27.0 mmol/L 21.0-32.0 [facility] Globulin (S) [Mass/Vol] 3.4 g/dL 2.2-4.2 [facility] Magnesium [Mass/Vol] 1.9 mg/dL 1.6-2.6 [facility] Urea nitrogen/Creatinine [Mass ratio] 27.1 mg/mg 10-20 [facility] Laboratory - Hematology and Cell countsOrdered By: Dr. Cooley on 02-21-2023 Erythrocyte distribution width (RBC) [Entitic vol] 47.2 fL 35.1-43.9 [facility] Erythrocyte distribution width (RBC) [Ratio] 14.0 % 11.6-14.6 [facility] Immature granulocytes/100 WBC (Bld) 0.900 % 0.0-0.9 [facility] Comment on above: IG% - Immature Granu locytes (promyelocytes, myelocytes and metamyelocytes) > 1% indicates that a LEFT SHIFT is Present. MCH (RBC) [Entitic mass] 30.7 pg 27.0-32.0 [facility] Nucleated RBC/100 WBC (Bld) [Ratio] 0 % 0-5 [facility] MCHC Auto (RBC) [Mass/Vol]Or dered By: Dr. Cooley on 02-21-2023 MCHC (RBC) [Mass/Vol] 33.2 g/dL 32-36 [facility] No Panel InformationOrdered By: Dr. Cooley on 02-21-2023 Estimated GFR (MDRD) Amer 93 mL/min >60 [facility] Comment on above: GFR Calc Estimated GFR (MDRD) Non-Af Amer 77 mL/min >60 [facility] Center Comment on above: Non- GFR Calc Thyroid Stimulating Hormone (TSH) 1.59 uIU/mL 0.358-3.74 [facility] Urine Microalbumin/Creatinine Ratio 10.3 mg/g CRE <30 [facility] Platelets bldOrdered By: Dr. Cooley on 02-21-2023 Platelets (Bld) [#/Vol] 330 10*3/uL 150-450 [facility] Serum or plasma albumin walt urement (mass/volume)Ordered By: Dr. Cooley on 02-21-2023 Albumin [Mass/Vol] 3.4 g/dL 3.2-5.0 [facility] Serum or plasma albumin/glob ulin mass ratioOrdered By: Dr. Cooley on 02-21-2023 Albumin/Globulin [Mass ratio] 1.0 {ratio} 0.9-2.4 [facility] Serum or plasma calcium walt urement (mass/volume)Ordered By: Dr. Cooley on 02-21-2023 Calcium [Mass/Vol] 9.1 mg/dL 8.5-10.1 [facility] Serum or plasma cholesterol in HDL measurement (mass/volume)Ordered By: Dr. Cooley on 02-21-2023 Cholesterol in HDL [Mass/Vol] 52 mg/dL >40 [facility] Comment on above: The drugs N-Acetylcy steine and Metamizole may falsely depress this assay. Reference Range HDL <40 mg/dL Low HDL Cholesterol HDL >or= 60 mg/dL High HDL Cholesterol Serum or plasma cholesterol in VLDL measurement (mass/volume)Ordered By: Dr. Cooley on 02-21-2023 Cholesterol in VLDL [Mass/Vol] 23 mg/dL 5-40 [facility] Serum or plasma creatinine m easurement (mass/volume)Ordered By: Dr. Cooley on 02-21-2023 Creatinine [Mass/Vol] 1.00 mg/dL 0.70-1.30 [facility] Comment on above: The validity of the calculated GFR & GFRAA in patients over 70 years has not been determined. Clinical correlation is essential. Serum or plasma low density lipoprotein (LDL) cholesterol measurement (mass/volume)Ordered By: Dr. Cooley on 02-21-2023 Cholesterol in LDL [Mass/Vol] 58 mg/dL 0-130 [facility] Serum or plasma urea nitroge n measurement (mass/volume)Ordered By: Dr. Cooley on 02-21-2023 Urea nitrogen [Mass/Vol] 27 mg/dL 7-18 [facility] Thin prep Papanicolaou smear with manual screeningOrdered By: Dr. Cooley on 02-21-2023 Thin prep Papanicolaou smear with manual screening 9 U/L 15-37 [facility] Thin prep Papanicolaou smear with manual screening 6 5-15 [facility] Thin prep Papanicolaou smear with manual screening 11.9 mg/L NO RANGE EST. [facility] Urine creatinine measurement (mass/volume)Ordered By: Dr. Cooley on 02-21-2023 Creatinine (U) [Mass/Vol] 115.00 mg/dL NO RANGE EST. [facility] Whole blood hemoglobin A1c/t otal hemoglobin ratio (mass fraction)Ordered By: Dr. Cooley on 02-21-2023 HbA1c (Bld) [Mass fraction] 6.4 % 3.8-5.6 [facility] Comment on above: Normal < 5.7 % Predi abetic 5.7 - 6.4 % Diabetic >or= 6.5 % Please note range changes. Anabelle 02-14-2023 JUMA Telephone (NIKOS) NACHOLUIS ARMANDO Khushbu ([id number]) 1945 M Date Time Provider Department 02/14/23 [...] is very concerned. Please call her at [phone]. Raeann Harrison RN 02/14/2023 3:05 PM Signed Received voicemail from patients' on Mon02/14/2023 2:28 PM Transcript below: This is Brennen Griffith. My phone number is [phone]. I'm calling for my Luis Armando Griffith. [...] really bad or it's gonna be a residential and I don't wanna do that so please give me a call at your earliest convenience. Thank you. Abbey. Message shared with CAR for further guidance. YVONNE Naik, RN February 14, 2023 3:04 PM Mary Harrison RN 02/14/2023 3:08 PM Signed message sent to patient and for further assessment. Awaiting reply. YVONNE Naik, RN February 14, 2023 3:08 PM Mary Harrison [...] mg tablet (more content not included)... Normal [facility] CNPNon 01-10-2023 CNPN Telephone (NRMDN) LUIS ARMANDO GRIFFITH ([id number]) 1945 M Date Time Provider Department 01/10/23 JAYLYN NIEVES During your visit today, we recorded the following information about you: Grace Sibley RN 01/10/2023 4:24 PM Signed Voicemail received January 10, 2023 [id number] My name is Brennen Griffith. My phone number is [phone]. My 's name is Luis Armando Griffith. [...] is Brennen Griffith. My phone number is [phone]. This is in regard to Luis Armando [...] 50 MCG, 2,000 UNIT, GUMMIES) - fluticasone jlltskv-srctfqmzzjiw-tg lanterol (TRELEGY ELLIPTA) 200-62.5-25 mcg powder inhaler [...] Status:Closed by KAREN PARRA on 01/13/23 Normal [facility] Basophil percentageOrdered B y: Dr. Gregory on 01-04-2023 Chloride [Moles/Vol] 106 mmol/L 98-107 [facility] Cholesterol [Mass/Vol] 139 mg/dL <200 [facility] Comment on above: <200 mg/dL Desirable 200-240 mg/dL Borderline >240 mg/dL High Risk Glucose [Mass/Vol] 55 mg/dL 74-106 [facility] Potassium [Moles/Vol] 3.9 mmol/L 3.5-5.1 [facility] Sodium [Moles/Vol] 143 mmol/L 136-145 [facility] Triglyceride [Mass/Vol] 133 mg/dL <199 [facility] Comment on above: The drugs N-Acetylcy steine and Metamizole may falsely depress this assay.Serum Triglycerides Reference Interval Normal <150 mg/dL Borderline high 150 - 199 mg/dL High 200 - 499 mg/dL Very High > or = 500 mg/dL Laboratory - Chemistry and C hemistry - challengeOrdered By: Dr. Gregory on 01-04-2023 ALT [Catalytic activity/Vol] 12 U/L 16-61 [facility] CO2 [Moles/Vol] 27.0 mmol/L 21.0-32.0 [facility] Urea nitrogen/Creatinine [Mass ratio] 25.1 mg/mg 10-20 [facility] No Panel InformationOrdered By: Dr. Gregory on 01-04-2023 Estimated GFR (MDRD) Amer 98 mL/min >60 [facility] Comment on above: GFR Calc Estimated GFR (MDRD) Non-Af Amer 81 mL/min >60 [facility] Comment on above: Non- GFR Calc Serum or plasma calcium walt urement (mass/volume)Ordered By: Dr. Gregory on 01-04-2023 Calcium [Mass/Vol] 8.9 mg/dL 8.5-10.1 [facility] Serum or plasma cholesterol in HDL measurement (mass/volume)Ordered By: Dr. Gregory on 01-04-2023 Cholesterol in HDL [Mass/Vol] 44 mg/dL >40 [facility] Comment on above: The drugs N-Acetylcy steine and Metamizole may falsely depress this assay. Reference Range HDL <40 mg/dL Low HDL Cholesterol HDL >or= 60 mg/dL High HDL Cholesterol Serum or plasma cholesterol in VLDL measurement (mass/volume)Ordered By: Dr. Gregory on 01-04-2023 Cholesterol in VLDL [Mass/Vol] 27 mg/dL 5-40 [facility] Serum or plasma creatinine m easurement (mass/volume)Ordered By: Dr. Gregory on 01-04-2023 Creatinine [Mass/Vol] 0.96 mg/dL 0.70-1.30 [facility] Comment on above: The validity of the calculated GFR & GFRAA in patients over 70 years has not been determined. Clinical correlation is essential. Serum or plasma low density lipoprotein (LDL) cholesterol measurement (mass/volume)Ordered By: Dr. Gregory on 01-04-2023 Cholesterol in LDL [Mass/Vol] 68 mg/dL 0-130 [facility] Serum or plasma urea nitroge n measurement (mass/volume)Ordered By: Dr. Gregory on 01-04-2023 Urea nitrogen [Mass/Vol] 24 mg/dL 7-18 [facility] Thin prep Papanicolaou smear with manual screeningOrdered By: Dr. Gregory on 01-04-2023 Thin prep Papanicolaou smear with manual screening 16 U/L 15-37 [facility] Thin prep Papanicolaou smear with manual screening 10 5-15 [facility] Whole blood hemoglobin A1c/t otal hemoglobin ratio (mass fraction)Ordered By: Dr. Gregory on 01-04-2023 HbA1c (Bld) [Mass fraction] 6.3 % 3.8-5.6 [facility] Comment on above: Normal < 5.7 % Predi abetic 5.7 - 6.4 % Diabetic >or= 6.5 % Please note range changes. CNOVon 12-12-2022 CNOV Office Visit (NRMDN) LUIS ARMANDO GRIFFITH ([id number]) 1945 M Date Time Provider Department 12/12/22 2:00 PM GARY RUIZ During your visit today, we recorded the following information about you: Weight Height 118.3 kg 1.778 m Gary Ruiz APRN.GENERAL PARTNER 12/13/2022 10:48 PM Signed [facility] - FOLLOW UP EVALUATION Ja Cooley MD [address] [facility] [address] Dear Ja Cooley MD: I had the [...] Flowsheet Row OT/PT/Speech Visit from 10/04/2022 in [facility] Outpatient Physical Therapy OT/PT/Speech Visit from 08/25/2022 in [facility] Outpatient Physical Therapy [facility] T [...] [facility] (more content not included)... [facility] (NRMDN) LUIS ARMANDO GRIFFITH ([id number]) 1945 M Date Time Provider Department 10/10/22 JAYLYN NIEVES During your visit today, we recorded the following information about you: Mary Harrison RN 10/10/2022 2:45 PM Signed Received voicemail from patient on Mon10/10/2022 9:09 AM Transcript below: Morning this is Luis Armando Griffith and my phone number is [phone]. I calling to find out if there's [...] Voicemail left directing patient to a detailed Baifendian message. Requested reply via MC or RCTO. [...] tablet by mouth twice daily. - fluticasone dnzjtmm-zmiwxbkijqfx-cf lanterol (TRELEGY ELLIPTA) 200-62.5-25 mcg powder inhaler [...] Encounter Status:Closed by MARY HARRISON on 10/10/22 [facility] CNTHERAPYon 10-04-2022 CNTHERAPY OT/PT/Speech Visit (PTMDRG) LUIS ARMANDO GRIFFITH ([id number]) 1945 M Date Time Provider Department 10/04/22 11:30 AM WILLIS RYDER Date Time Provider Department [place] 10/04/2022 11:30 AM [id number] RYDER [facility] Reason for Visit: Physical [...] 50 MCG, 2,000 UNIT, GUMMIES) - fluticasone gobmkpu-igszpggljocs-nu lanterol (TRELEGY ELLIPTA) 200-62.5-25 mcg powder inhaler [...] 80 mg by mouth once daily. Normal [facility] Basophil percentageOrdered B y: Dr. Gregory on 09-16-2022 Chloride [Moles/Vol] 105 mmol/L 98-107 [facility] Glucose [Mass/Vol] 142 mg/dL 74-106 [facility] Comment on above: Fasting Glucose resu lt greater than or equal to 126 mg/dL suggests DIABETES MELLITUS per A.D.A. criteria. Potassium [Moles/Vol] 3.8 mmol/L 3.5-5.1 [facility] Sodium [Moles/Vol] 137 mmol/L 136-145 [facility] Laboratory - Chemistry and C hemistry - challengeOrdered By: Dr. Gregory on 09-16-2022 ALT [Catalytic activity/Vol] 13 U/L 16-61 [facility] CO2 [Moles/Vol] 24.0 mmol/L 21.0-32.0 [facility] Urea nitrogen/Creatinine [Mass ratio] 24.0 mg/mg 10-20 [facility] No Panel InformationOrdered By: Dr. Gregory on 09-16-2022 Estimated GFR (MDRD) Amer 89 mL/min >60 [facility] Comment on above: GFR Calc Estimated GFR (MDRD) Non-Af Amer 73 mL/min >60 [facility] Comment on above: Non- GFR Calc Thyroid Stimulating Hormone (TSH) 1.71 uIU/mL 0.358-3.74 [facility] Serum or plasma calcium walt urement (mass/volume)Ordered By: Dr. Gregory on 09-16-2022 Calcium [Mass/Vol] 9.4 mg/dL 8.5-10.1 [facility] Serum or plasma creatinine m easurement (mass/volume)Ordered By: Dr. Gregory on 09-16-2022 Creatinine [Mass/Vol] 1.04 mg/dL 0.70-1.30 [facility] Comment on above: The validity of the calculated GFR & GFRAA in patients over 70 years has not been determined. Clinical correlation is essential. Serum or plasma urea nitroge n measurement (mass/volume)Ordered By: Dr. Gregory on 09-16-2022 Urea nitrogen [Mass/Vol] 25 mg/dL 7-18 [facility] Thin prep Papanicolaou smear with manual screeningOrdered By: Dr. Gregory on 09-16-2022 Thin prep Papanicolaou smear with manual screening 13 U/L 15-37 [facility] Thin prep Papanicolaou smear with manual screening 8 5-15 [facility] Whole blood hemoglobin A1c/t otal hemoglobin ratio (mass fraction)Ordered By: Dr. Gregory on 09-16-2022 HbA1c (Bld) [Mass fraction] 6.5 % 3.8-5.6 [facility] Comment on above: Normal < 5.7 % Predi abetic 5.7 - 6.4 % Diabetic >or= 6.5 % Please note range changes. CNTHERAPYon 09-15-2022 CNTHERAPY OT/PT/Speech Visit (PTMDRG) LUIS ARMANDO GRIFFITH ([id number]) 1945 M Date Time Provider Department 09/15/22 4:00 PM BRITNI WILLIS AVA Date Time Provider Department Center 09/15/2022 4:00 PM [id number] AVA [facility] Reason for Visit: Physical [...] tablet by mouth twice daily. - fluticasone cnqeiah-kznhpclanyyz-tw lanterol (TRELEGY ELLIPTA) 200-62.5-25 mcg powder inhaler [...] Take 80 mg by mouth once daily. [facility] 09-12-2022 [facility] Telephone (NREUS2) LUIS ARMANDO GRIFFITH ([id number]) 1945 M Date Time Provider Department 09/12/22 JAYLYN NIEVES NREUS2 During your visit today, we recorded the following information about you: Lena Gallo [facility] 09/12/2022 2:37 PM Signed NI PHONE NAME OF CALLER: Brennen RELATIONSHIP TO PATIENT: spouse PATIENT ID'D BY NAME/: yes REASON FOR CALL: States that his PD symptoms are worsening and she would like to speak with Stefania. CALLBACK #: [phone] OK TO LEAVE MESSAGE: ok only on [...] for RCTO and option to message via Baifendian. YVONNE Naik, RN September 16, 2022 8:48 [...] mg tablet (more content not included)... Normal [facility] CNTHERAPYon 08-25-2022 CNTHERAPY OT/PT/Speech Visit (PTMDRG) LUIS ARMANDO GRIFFITH ([id number]) 1945 M Date Time Provider Department 08/25/22 5:30 PM WILLIS RYDER Date Time Provider Department Center 08/25/2022 5:30 PM [id number] RYDER [facility] Reason for Visit: Physical [...] tablet by mouth twice daily. - fluticasone csdpvnd-ghcdubkelrcv-wu lanterol (TRELEGY ELLIPTA) 200-62.5-25 mcg powder inhaler [...] Take 80 mg by mouth once daily. [facility] CNTHERAPYon 08-11-2022 CNTHERAPY OT/PT/Speech Visit (AVA) LUIS ARMANDO GRIFFITH ([id number]) 1945 M Date Time Provider Department 08/11/22 1:00 PM WILLIS RYDER Date Time Provider Department Center 08/11/2022 1:00 PM [id number] RYDER [facility] Reason for Visit: PT Roseliaal [747] Patient Education [91] Primary Visit Diagnosis:Leg [...] tablet by mouth twice daily. - fluticasone ctudnxt-goixvlmfzmih-ro lanterol (TRELEGY ELLIPTA) 200-62.5-25 mcg powder inhaler [...] 80 mg by mouth once daily. [facility] 08-04-2022 CN Office Visit (NRMDN) LUIS ARMANDO GRIFFITH ([id number]) 1945 M Date Time Provider Department 08/04/22 2:00 PM [facility] During your visit today, we recorded the following information about you: Pulse Respiration Blood pressure 107/minute 16/minute 109/86 Jaylyn Nieves MD 08/04/2022 5:35 PM Signed [facility] - FOLLOW UP EVALUATION Ja Cooley MD [address] [facility] [address] [facility] [address] I had the pleasure of seeing Mr. [...] 1 tablet by mouth twice daily. fluticasone upbguic-dwpmqofvbxoz-tq lanterol (TRELEGY ELLIPTA) 200-62.5-25 mcg powder inhaler Inhale 1 Puff as instructed once daily. aspirin, enteric coated (ASPIRIN, ENTERIC COATED) 81 mg EC tablet Take 81 mg by mouth once daily. tamsulosin (FLOMAX) 0.4 mg Take 0.4 m (more content not included)... Normal [facility] No Panel Informationon 08-01 Prostate Specific Antigen Screen 5.11 ng/mL 0.00-4.00 [facility] Work Phone: Comment on above: This test was perfor med using the TPSA assay method for theSaleStreamMedstro chemistry system. Values obtained with differentassay methods cannot be used interchangably.When changing PSA assays in the course of monitoring apatient, additional sequential testing should be carriedout to confirm baseline values. Anabelle 07-21-2022 [facility] Telephone (NRSDN) NACHOLUIS ARMANDO ([id number]) 1945 M Date Time Provider Department 07/21/22 JAYLYN NIEVES During your visit today, we recorded the following information about you: Mary Harrison RN 07/21/2022 1:09 PM Signed Received voicemail from patient's on Rosalia 07/21/2022 10:52 AM Transcript below: Kaila my name is Brennen Griffith. My 's name is Luis Armando Griffith. He is a patient of Dr. Gordillo. My phone number is [phone]. I'm calling to speak to somebody regarding [...] Updates shared with MD CAR AND JANY, DOOR TRIMMER. If any guidance is suggested, RN will [...] Status:Closed by MARY HARRISON on 07/21/22 Normal [facility] No Panel Informationon 06-21 Urine Microalbumin/Creatinine Ratio 12.4 mg/g CRE <30 [facility] Work Phone: Thin prep Papanicolaou smear with manual screeningon 06-21-2022 Thin prep Papanicolaou smear with manual screening 17.8 mg/L NO RANGE EST. [facility] Work Phone: Urine creatinine measurement (mass/volume)on 06-21-2022 Creatinine (U) [Mass/Vol] 144.00 mg/dL NO RANGE EST. [facility] Work Phone: Basophil percentageon 2021 Chloride [Moles/Vol] 102 mmol/L 98-[address] [facility] [address] [facility] Work Phone: Cholesterol [Mass/Vol] 140 mg/dL <200 [facility] Work Phone: Comment on above: <200 mg/dL Desirable 200-240 mg/dL Borderline >240 mg/dL High Risk Glucose [Mass/Vol] 224 mg/dL 74-106 [facility] Work Phone: Comment on above: Glucose result great er than or equal to 200 mg/dLsuggests DIABETES MELLITUS per A.D.A. criteria. Potassium [Moles/Vol] 3.9 mmol/L 3.5-5.1 [facility] Work Phone: Sodium [Moles/Vol] 137 mmol/L 136-145 [facility] Work Phone: Triglyceride [Mass/Vol] 161 mg/dL <199 [facility] Work Phone: Comment on above: The drugs N-Acetylcy steine and Metamizole may falsely depress this assay.Serum Triglycerides Reference Interval Normal <150 mg/dL Borderline high 150 - 199 mg/dL High 200 - 499 mg/dL Very High > or = 500 mg/dL Laboratory - Chemistry and C hemistry - challengeon 06-20-2022 ALT [Catalytic activity/Vol] 21 U/L 16-61 [facility] Work Phone: CO2 [Moles/Vol] 29.0 mmol/L 21.0-32.0 [facility] Work Phone: Urea nitrogen/Creatinine [Mass ratio] 21.7 mg/mg 10-20 [facility] Work Phone: No Panel Informationon 06-20 Estimated GFR (MDRD) Amer 75 mL/min >60 [facility] Work Phone: Comment on above: GFR Calc Estimated GFR (MDRD) Non-Af Amer 62 mL/min >60 [facility] Work Phone: Comment on above: Non- GFR Calc Serum or plasma calcium walt urement (mass/volume)on 06-20-2022 Calcium [Mass/Vol] 8.8 mg/dL 8.5-10.1 [facility] Work Phone: Serum or plasma cholesterol in HDL measurement (mass/volume)on 06-20-2022 Cholesterol in HDL [Mass/Vol] 47 mg/dL >40 [facility] Work Phone: Comment on above: The drugs N-Acetylcy steine and Metamizole may falsely depress this assay. Reference Range HDL <40 mg/dL Low HDL Cholesterol HDL >or= 60 mg/dL High HDL Cholesterol Serum or plasma cholesterol in VLDL measurement (mass/volume)on 06-20-2022 Cholesterol in VLDL [Mass/Vol] 32 mg/dL 5-40 [facility] Work Phone: Serum or plasma creatinine m easurement (mass/volume)on 06-20-2022 Creatinine [Mass/Vol] 1.20 mg/dL 0.70-1.30 [facility] Work Phone: Comment on above: The validity of the calculated GFR & GFRAA in patients over 70 years has not been determined. Clinical correlation is essential. Serum or plasma low density lipoprotein (LDL) cholesterol measurement (mass/volume)on 06-20-2022 Cholesterol in LDL [Mass/Vol] 61 mg/dL 0-130 [facility] Work Phone: Serum or plasma urea nitroge n measurement (mass/volume)on 06-20-2022 Urea nitrogen [Mass/Vol] 26 mg/dL 7-18 [facility] Work Phone: Thin prep Papanicolaou smear with manual screeningon 06-20-2022 Thin prep Papanicolaou smear with manual screening 17 U/L 15-37 [facility] Work Phone: Thin prep Papanicolaou smear with manual screening 6 5-15 [facility] Work Phone: Whole blood hemoglobin A1c/t otal hemoglobin ratio (mass fraction)on 06-20-2022 HbA1c (Bld) [Mass fraction] 6.7 % 3.8-5.6 [facility] Work Phone: Comment on above: Normal < 5.7 % Predi abetic 5.7 - 6.4 % Diabetic >or= 6.5 % Please note range changes. Absolute lymphocyte counton 04-25-2022 Lymphocytes Auto (Unsp spec) [#/Vol] 3.24 10*3/uL 0.83-4.51 [facility] Work Phone: Basophil percentageon 2021 Basophil percentage 0-5 SEEN /hpf 0-5 [facility] Work Phone: Basophils/100 WBC (Bld) 1.2 % 0-1 [facility] Work Phone: Bilirubin [Mass/Vol] 0.70 mg/dL 0.20-1.00 [facility] Work Phone: Comment on above: For patients on eltr ombopag therapy, use of Dimension Twisp TBIL is not recommended. Chloride [Moles/Vol] 103 mmol/L 98-107 [facility] Work Phone: Cholesterol [Mass/Vol] 138 mg/dL <200 [facility] Work Phone: Comment on above: <200 mg/dL Desirable 200-240 mg/dL Borderline >240 mg/dL High Risk Eosinophils/100 WBC (Bld) 2.6 % 0-5 [facility] Work Phone: Glucose [Mass/Vol] 168 mg/dL 74-106 [facility] Work Phone: Comment on above: Fasting Glucose resu lt greater than or equal to 126 mg/dL suggests DIABETES MELLITUS per A.D.A. criteria. Neutrophils (Bld) [#/Vol] 4.2 10*3/uL 2.0-7.7 [facility] Work Phone: Neutrophils/100 WBC (Bld) 46.5 % 47-70 [facility] Work Phone: Potassium [Moles/Vol] 3.9 mmol/L 3.5-5.1 [facility] Work Phone: Protein [Mass/Vol] 7.3 g/dL 6.4-8.2 [facility] Work Phone: Sodium [Moles/Vol] 137 mmol/L 136-145 [facility] Work Phone: Triglyceride [Mass/Vol] 193 mg/dL <199 [facility] Work Phone: Comment on above: The drugs N-Acetylcy steine and Metamizole may falsely depress this assay.Serum Triglycerides Reference Interval Normal <150 mg/dL Borderline high 150 - 199 mg/dL High 200 - 499 mg/dL Very High > or = 500 mg/dL WBC (Bld) [#/Vol] 8.9 10*3/uL 4.4-11.0 [facility]: Bilirubin Test strip Ql (U)o n 04-25-2022 Bilirubin Ql (U) Negative Negative [facility] Work Phone: Blood erythrocytes count (nu mber/volume)on 04-25-2022 RBC (Bld) [#/Vol] 4.66 10*6/uL 4.6-6.2 [facility]: Blood hemoglobin measurement (mass/volume)on 04-25-2022 Hemoglobin (Bld) [Mass/Vol] 14.6 g/dL 13.0-16.5 [facility] Work Phone: Blood lymphocytes/100 leukoc yteson 04-25-2022 Lymphocytes/100 WBC (Bld) 36.4 % 19-41 [facility] Work Phone: Blood monocytes/100 leukocyt eson 04-25-2022 Monocytes/100 WBC (Bld) 12.6 % 0-10 [facility] Work Phone: Blood platelet mean volumeon 04-25-2022 Platelet mean volume (Bld) [Entitic vol] 10.1 fL 6.2-12.0 [facility] Work Phone: Determination of erythrocyte mean corpuscular volume (MCV)on 04-25-2022 MCV (RBC) [Entitic vol] 93.3 fL 80-94 [facility] Work Phone: Hematocrit Auto (Bld) [Volum e fraction]on 04-25-2022 Hematocrit (Bld) [Volume fraction] 43.5 % 40-54 [facility] Work Phone: Ketones Test strip Ql (U)on 04-25-2022 Ketones Ql (U) 5 mg/dl Negative [facility] Work Phone: Laboratory - Chemistry and C hemistry - challengeon 04-25-2022 ALP [Catalytic activity/Vol] 62 U/L 45-117 [facility] Work Phone: ALT [Catalytic activity/Vol] 25 U/L 16-61 [facility] [facility] Work Phone: CO2 [Moles/Vol] 25.0 mmol/L 21.0-32.0 [facility] Work Phone: Cobalamin (Vitamin B12) [Mass/Vol] 1930 pg/mL 211-911 [facility] Work Phone: Globulin (S) [Mass/Vol] 3.6 g/dL 2.2-4.2 [facility] Work Phone: Urea nitrogen/Creatinine [Mass ratio] 19.8 mg/mg 10-20 [facility] Work Phone: Laboratory - Hematology and Cell countson 04-25-2022 Erythrocyte distribution width (RBC) [Entitic vol] 46.3 fL 35.1-43.9 [facility] Work Phone: Erythrocyte distribution width (RBC) [Ratio] 13.6 % 11.6-14.6 [facility] Work Phone: Immature granulocytes/100 WBC (Bld) 0.700 % 0.0-0.9 [facility] Work Phone: Comment on above: IG% - Immature Granu locytes (promyelocytes, myelocytes and metamyelocytes) > 1% indicates that a LEFT SHIFT is Present. MCH (RBC) [Entitic mass] 31.3 pg 27.0-32.0 [facility] Work Phone: Nucleated RBC/100 WBC (Bld) [Ratio] 0 % 0-5 [facility] Work Phone: MCHC Auto (RBC) [Mass/Vol]on 04-25-2022 MCHC (RBC) [Mass/Vol] 33.6 g/dL 32-36 [facility] Work Phone: Mucus LM Ql (Urine sed)on Mucus Ql (Urine sed) 0 SEEN /hpf [facility] Work Phone: Nitrite Test strip Ql (U)on 04-25-2022 Nitrite Ql (U) Negative Negative [facility] Work Phone: No Panel Informationon 04-25 Estimated GFR (MDRD) Amer 87 mL/min >60 [facility] Work Phone: Comment on above: GFR Calc Estimated GFR (MDRD) Non-Af Amer 72 mL/min >60 [facility] Work Phone: Comment on above: Non- GFR Calc Thyroid Stimulating Hormone (TSH) 2.14 uIU/mL 0.358-3.74 [facility] Work Phone: Vitamin D 25-Hydroxy 59.3 ng/mL [facility] Work Phone: Comment on above: Vitamin D 25(OH) Sta tus Range Deficiency <20 ng/mL (50nmol/L) Insufficiency 20 - 30 ng/mL (50 - 75 nmol/L) Sufficiency 30 - 100 ng/mL (75 - 250 nmol/L) Toxicity >100 ng/mL (>250 nmol/L) Platelets bldon 04-25-2022 Platelets (Bld) [#/Vol] 264 10*3/uL 150-450 [facility] Work Phone: Protein Test strip Ql (U)on 04-25-2022 Protein Ql (U) Negative Negative [facility] Work Phone: Serum or plasma albumin walt urement (mass/volume)on 04-25-2022 Albumin [Mass/Vol] 3.7 g/dL 3.2-5.0 [facility] Work Phone: Serum or plasma albumin/glob ulin mass ratioon 04-25-2022 Albumin/Globulin [Mass ratio] 1.0 {ratio} 0.9-2.4 [facility] Work Phone: Serum or plasma calcium walt urement (mass/volume)on 04-25-2022 Calcium [Mass/Vol] 9.1 mg/dL 8.5-10.1 [facility] Work Phone: Serum or plasma cholesterol in HDL measurement (mass/volume)on 04-25-2022 Cholesterol in HDL [Mass/Vol] 43 mg/dL >40 [facility] Work Phone: Comment on above: The drugs N-Acetylcy steine and Metamizole may falsely depress this assay. Reference Range HDL <40 mg/dL Low HDL Cholesterol HDL >or= 60 mg/dL High HDL Cholesterol Serum or plasma cholesterol in VLDL measurement (mass/volume)on 04-25-2022 Cholesterol in VLDL [Mass/Vol] 39 mg/dL 5-40 [facility] Work Phone: Serum or plasma creatinine m easurement (mass/volume)on 04-25-2022 Creatinine [Mass/Vol] 1.06 mg/dL 0.70-1.30 [facility] Work Phone: Comment on above: The validity of the calculated GFR & GFRAA in patients over 70 years has not been determined. Clinical correlation is essential. Serum or plasma folate measu rement (mass/volume)on 04-25-2022 Folate [Mass/Vol] 13.80 ng/mL 3.1-55.4 [facility] Work Phone: Comment on above: Slight Hemolysis, Re sult may be falsely increased. Serum or plasma low density lipoprotein (LDL) cholesterol measurement (mass/volume)on 04-25-2022 Cholesterol in LDL [Mass/Vol] 56 mg/dL 0-130 [facility] Work Phone: Serum or plasma urea nitroge n measurement (mass/volume)on 04-25-2022 Urea nitrogen [Mass/Vol] 21 mg/dL 7-18 [facility] Work Phone: Squamous epithelial cells de tection in urine sediment by light microscopyon 04-25-2022 Epithelial cells.squamous LM Ql (Urine sed) 0 SEEN /hpf 0-5 [facility] Work Phone: Thin prep Papanicolaou smear with manual screeningon 04-25-2022 Thin prep Papanicolaou smear with manual screening 17 U/L 15-37 [facility] Work Phone: Thin prep Papanicolaou smear with manual screening 9 5-15 [facility] Work Phone: Urine blood detectionon -0 RBC Ql (U) Negative Negative [facility] Work Phone: RBC Ql (U) 0-5 SEEN /hpf 0-5 [facility] Work Phone: Urine clarityon 04-25-2022 Clarity (U) Clear Clear [facility] Work Phone: Urine color determinationon 04-25-2022 Color (U) Yellow Yellow [facility] Work Phone: Urine glucose detectionon Glucose Ql (U) Normal mg/dl Normal [facility] Work Phone: Urine leukocyte esterase det ection by dipstickon 04-25-2022 Leukocyte esterase Test strip Ql (U) Negative Negative [facility] Work Phone: Urine pHon 04-25-2022 pH (U) 6.0 [pH] 5.0 - 8.0 [facility] Work Phone: Urine sediment bacteria coun t by microscopy (number/high power field)on 04-25-2022 Bacteria LM.HPF (Urine sed) [#/Area] RARE /hpf None Seen [facility] Work Phone: Urine specific gravity measu rementon 04-25-2022 Specific gravity (U) [Rel density] 1.020 1.002-1.030 [facility] Work Phone: Urobilinogen Auto test strip Ql (U)on 04-25-2022 Urobilinogen Ql (U) 4 mg/dl Normal [facility] Work Phone: Whole blood hemoglobin A1c/t otal hemoglobin ratio (mass fraction)on 04-25-2022 HbA1c (Bld) [Mass fraction] 6.6 % 3.8-5.6 [facility] Work Phone: Comment on above: Normal < 5.7 % Predi abetic 5.7 - 6.4 % Diabetic >or= 6.5 % Please note range changes. Laboratory - Drug toxicology on 04-07-2022 Amphetamines Ql (U) Negative <1000 ng/mL [facility] Work Phone: Benzodiazepines Ql (U) Negative < 200 ng/mL [facility] Work Phone: Cannabinoids Screen Ql (U) Negative < 50 ng/mL [facility] Work Phone: Cocaine Ql (U) Negative < 300 ng/mL [facility] Work Phone: Opiates Ql (U) Negative < 300 ng/mL [facility] Work Phone: No Panel Informationon 04-07 MDMA (Ecstasy) Screen Negative < 500 ng/mL [facility] Work Phone: Miscellaneous Test See comment [facility] Work Phone: Comment on above: [id number] 6+OXYCODONE-B UND (ng/mL) DRUG RESULT SCREEN CUTOFF____ Amphetamines,Urine Negative ng/mL 1000 Amphetamine test includes Amphetamine and Methamphetamine.Barbiturates Negative ng/mL 200Benzodiazepines Negative ng/mL 200Cannabinoid Negative ng/mL 20Cocaine (Metab) Negative ng/mL 300Opiates Negative ng/mL 300 Opiates test includes Codeine, Morphine, Hydromorphone, Hydrocodone. Oxycodone/Oxymorphone,Urine Positive ng/mL 300 Test includes Oxydodone and Oxymorphone. Oxycodone PositiveOxycodone Conf,MS,UR 666 ng/mL 300 Oxymorphone Negative 300 TESTING PERFORMED AT [facility]. ORIGINAL REPORT ON FILE IN LAB CONTAINS ADDITIONAL TEST SITE INFORMATION. Urine Barbiturates Screen Negative < 200 ng/m L [facility] Work Phone: Urine Drug Screen Comment [facility] Work Phone: Comment on above: [...] Methadone Screen Negative < 300 ng/mL [facility] Work Phone: Urine phencyclidine (PCP) de tectionon 04-07-2022 Phencyclidine Ql (U) Negative < 25 ng/mL [facility] Work Phone: CNOVon 03-29-2022 CNOV Office Visit (SPEMML ) LUIS ARMANDO GRIFFITH ([id number]) 1945 M Date Time Provider Department 03/29/22 1:30 PM MICHELLE RO During your visit today, we recorded the following information about you: Michelle Ro CCC-[facility]ERS 03/29/2022 3:59 PM Signed Episode Visit Count: 1 Therapist That Will Oversee The Plan Of Care: Andrade Start of Care Date: 03/29/22 Onset Date: 11/20/20 Plan of Care Certification Date: 03/29/22 Patient Identified by Name and Date of : Yes [facility] SPEECH and SWALLOW [...] position 20-30 minutes following all oral intake CARPENTERS Recommendations: Swallowing Precautions;Discontinue Speech Therapy Results and [...] MBS (pt reports had MBS done at [facility] last year, which pt was told 'he [...] Impaired Pharyng (more content not included)... [facility]) LU[facility] ARMAND[facility] GRIFFITH ([id number]) 1945 M Date Time Provider Department 03/29/22 12:30 PM JAYLYN NIEVES During your visit today, we recorded the following information about you: Jaylyn Nieves MD 03/29/2022 7:35 PM Signed [facility] Jaylyn Nieves [address] [phone] Ja Cooley MD [address] [facility] [address] I had the pleasure of seeing Mr. 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 Started on Sinemet which caused side effects at 6/day. At last visit we tried to taper off it but he experiences return of tremors and confusion at dose of 3/day. Will increase Sinemet (more content not included)... Normal [facility] CNTHERAPYon 03-29-2022 CNTHERAPY OT/PT/Speech Visit (PTMDRG) LUIS ARMANDO GRIFFITH ([id number]) 1945 M Date Time Provider Department 03/29/22 3:30 PM MAINE MEDEL [facility] Date Time Provider Department Center 03/29/2022 3:30 PM [id number] MEDEL PTMG [facility] Reason for Visit: PT Eval [757] Patient Education [91] PT Discharge [562] Primary Visit Diagnosis:Parkinson disease (HCC) [G20] Allergies [...] Take 80 mg by mouth once daily. [facility] CNTHERAPY OT/PT/Speech Visit (OTMMC) LUIS ARMANDO GRIFFITH ([id number]) 1945 M Date Time Provider Department 03/29/22 2:30 PM HEENA [facility]O [facility] Date Time Provider Department Center 03/29/2022 2:30 PM [id number], DIANDRA [facility] Reason for Visit: OT EVAL [748] [...] Take 80 mg by mouth once daily. [facility] 03-23-2022 CNPN Telephone (TOANMDN) LUIS ARMANDO GRIFFITH ([id number]) 1945 M Date Time Provider Department 03/23/22 [...] Encounter Status:Closed by CALI HAAS on 03/23/22 [facility] Traci 03-17-2022 CNOV Office Visit (NRMDN) LUIS ARMANDO GRIFFITH ([id number]) 1945 M Date Time Provider Department 03/17/22 3:00 PM JAYLYN NIEVES During your visit today, we recorded the following information about you: Pulse Blood pressure Weight Height 101/minute 120/77 125.8 kg 1.778 m Jaylyn Nieves MD 03/18/2022 4:12 PM Signed [facility] - FOLLOW UP EVALUATION No referring provider defined for this encounter. Ja Cooley MD [address] [facility] [address] I had the pleasure of seeing Mr. [...] to be helpful Interval History Seen at [facility] for surgical evaluation. SDR was too [...] is be (more content not included)... Normal [facility] Basophil percentageon 2021 Chloride [Moles/Vol] 105 mmol/L 98-107 [facility] Work Phone: Glucose [Mass/Vol] 102 mg/dL 74-106 [facility] Work Phone: Comment on above: Fasting Glucose resu lt from 100 to 125 mg/dL suggests IMPAIRED HOMEOSTASIS per A.D.A. criteria. Potassium [Moles/Vol] 3.5 mmol/L 3.5-5.1 [facility] Work Phone: Sodium [Moles/Vol] 138 mmol/L 136-145 [facility] Work Phone: Laboratory - Chemistry and C hemistry - challengeon 03-10-2022 ALT [Catalytic activity/Vol] 21 U/L 16-61 [facility] Work Phone: CO2 [Moles/Vol] 26.0 mmol/L 21.0-32.0 [facility] Work Phone: Urea nitrogen/Creatinine [Mass ratio] 24.3 mg/mg 10-20 [facility] Work Phone: No Panel Informationon 03-10 Estimated GFR (MDRD) Amer 79 mL/min >60 [facility] Work Phone: Comment on above: GFR Calc Estimated GFR (MDRD) Non-Af Amer 65 mL/min >60 [facility] Work Phone: Comment on above: Non- GFR Calc Serum or plasma calcium walt urement (mass/volume)on 03-10-2022 Calcium [Mass/Vol] 8.8 mg/dL 8.5-10.1 [facility] Work Phone: Serum or plasma creatinine m easurement (mass/volume)on 03-10-2022 Creatinine [Mass/Vol] 1.15 mg/dL 0.70-1.30 [facility] Work Phone: Comment on above: The validity of the calculated GFR & GFRAA in patients over 70 years has not been determined. Clinical correlation is essential. Serum or plasma urea nitroge n measurement (mass/volume)on 03-10-2022 Urea nitrogen [Mass/Vol] 28 mg/dL 7-18 [facility] Work Phone: Thin prep Papanicolaou smear with manual screeningon 03-10-2022 Thin prep Papanicolaou smear with manual screening 21 U/L 15-37 [facility] Work Phone: Thin prep Papanicolaou smear with manual screening 7 5-15 [facility] Work Phone: Whole blood hemoglobin A1c/t otal hemoglobin ratio (mass fraction)on 03-10-2022 HbA1c (Bld) [Mass fraction] 6.5 % 3.8-5.6 [facility] Work Phone: Comment on above: [...] MonDec 15, 2021 5:24:44 PM EST Normal [facility] Comment on above: Order Comment: Injur y/Trauma or Illness?:Illness/Other How long have you had these symptoms (acute/chronic)?:Acute Reason for exam?:resting tremor, Tremor Type of Exam?:Initial Additional signs and symptoms?:n Basophil percentageon 2020 Chloride [Moles/Vol] 104 mmol/L 98-107 [facility] Work Phone: Glucose [Mass/Vol] 148 mg/dL 74-106 [facility] Work Phone: Comment on above: Fasting Glucose resu lt greater than or equal to 126 mg/dL suggests DIABETES MELLITUS per A.D.A. criteria.Please note revised GLUCOSE reference range effective 2017. Potassium [Moles/Vol] 3.9 mmol/L 3.5-5.1 [facility] Work Phone: Sodium [Moles/Vol] 140 mmol/L 136-145 [facility] Work Phone: Laboratory - Chemistry and C hemistry - challengeon 11-15-2021 CO2 [Moles/Vol] 29.0 mmol/L 21.0-32.0 [facility] Work Phone: Urea nitrogen/Creatinine [Mass ratio] 18.5 mg/mg 10-20 [facility] Work Phone: No Panel Informationon 11-15 Estimated GFR (MDRD) Amer 85 mL/min >60 [facility] Work Phone: Comment on above: GFR Calc Estimated GFR (MDRD) Non-Af Amer 70 mL/min >60 [facility] Work Phone: Comment on above: Non- GFR Calc Serum or plasma calcium walt urement (mass/volume)on 11-15-2021 Calcium [Mass/Vol] 9.0 mg/dL 8.5-10.1 [facility] Work Phone: Serum or plasma creatinine m easurement (mass/volume)on 11-15-2021 Creatinine [Mass/Vol] 1.08 mg/dL 0.70-1.30 [facility] Work Phone: Comment on above: The validity of the calculated GFR & GFRAA in patients over 70 years has not been determined. Clinical correlation is essential. Serum or plasma urea nitroge n measurement (mass/volume)on 11-15-2021 Urea nitrogen [Mass/Vol] 20 mg/dL 7-18 [facility] Work Phone: Thin prep Papanicolaou smear with manual screeningon 11-15-2021 Thin prep Papanicolaou smear with manual screening 7 5-15 [facility] Work Phone: Whole blood hemoglobin A1c/t otal hemoglobin ratio (mass fraction)on 11-15-2021 HbA1c (Bld) [Mass fraction] 6.6 % 3.8-5.6 [facility] Work Phone: Comment on above: [...] No other mass effect. Patent basal cisterns. Xbeb-fr-smperbrw symmetric global volume loss without lobar predominance. [...] MonNov 02, 2021 8:48:26 AM EST Normal [facility] Comment on above: Order Comment: Injur y/Trauma or Illness?:Illness/Other How long have you had these symptoms (acute/chronic)?:Acute Reason for exam?:trmors Type of Exam?:Initial Additional signs and symptoms?:HIFU protocol Glucose,Bedsideon 05-19-2021 Glucose [Mass/Vol] 137 mg/dL High 70-100 [facility] Comment on above: Result Comment: Test performed by glucose meter. Results may be 10%-15% lower than serum/plasma values. (CLIA ID [id number]) Performed By: #### B GLU #### [facility] [address] [place] [phone] OPERATIVE REPORTOrdered By: 3m Scanning on 05-19-2021 [employer] Work Phone: POCT GlucoseOrdered By: Nii Altman on 05-19-2021 Glucose [Mass/Vol] 137 mg/dL High 70 - 100 mg/dL [employer] Work Phone: Comment on above: Test performed by gl ucose meter. Results may be 10%-15% lower than serum/plasma values. (CLIA ID [id number]) Interpretation and review of laboratory results Abnormal [employer] Work Phone: Test Performed by [facility], [address] [place] [id number] [employer] Work Phone: [employer] Work Phone: ECHO Pharmacological Stress TestOrdered By: Raeann Holland on 05-11-2021 STRESS ECHOCARDIOGRA M Dobutamine PATIENT: Luis Armando Griffith STUDY DATE: 05/11/2021 : 1945 AGE: 75 HT/WT: 177.8 cm (70 123.2 kg in) (271 lb) GENDER: M BP: 149 / 83 LOCATION: [employer] PATIENT [facility] STATUS: Medical Center *ORDERING PHYSICIAN: * Amalia, *FELLOW: * Wes Montilla MD *SUPERVISING PHYSICIAN: * *RN: Bessie Irwin Diana *READING PHYSICIAN: * Miko Valdes MD, *BATCHER OPERATOR: * Dai Burnette [facility] -- INDICATIONS: Pre-operative. Shortness of breath. 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 The infusion was terminated after achieving the [...] (84) + + (more content not included)... [employer] Work Phone: Brand[facility], [employer] [facility] Incoming Cardiology Results From [facility] - 05/11/2021 4:29 PM EDT STRESS ECHOCARDIOGRAM Dobutamine PATIENT: Luis Armando Griffith STUDY DATE: 05/11/2021 : 1945 AGE: 75 HT/WT: 177.8 cm (70 123.2 kg in) (271 lb) GENDER: M BP: 149 / 83 LOCATION: [employer] PATIENT [facility] STATUS: Medical Center *ORDERING PHYSICIAN: * Amalia, *FELLOW: * Wes Montilla MD *SUPERVISING PHYSICIAN: * *RN: Bessie Irwin Diana *READING PHYSICIAN: * Miko Valdes MD, *BATCHER OPERATOR: * Dai Burnette [facility] -- INDICATIONS: Pre-operative. Shortness of breath. 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 The infusion was terminated after achieving the [...] an appropriate blo (more content not included)... [employer] Work Phone: [employer] Phone: Echo Dobutamine Stress Echo w/wo Conton 05-11-2021 Echo Dobutamine Stress Echo w/wo Cont Patient Name: LUIS ARMANDO GRIFFITH Ultrasound ACCESSION EXAM DATE/TIME PROCEDURE ORDERING PROVIDER [id number] 05/11/2021 11:00 EDT Echo Dobutamine Stress AWAIS HOLLAND, RAEANN Echo w/wo Cont Reason For Exam (Echo Dobutamine Stress Echo w/wo Cont) pre op testing, abnormal EKG, shortness of breath Report STRESS ECHOCARDIOGRAM Dobutamine PATIENT: Luis Armando Griffith STUDY DATE: 05/11/2021 : 1945 AGE: 75 HT/WT: 177.8 cm (70 123.2 kg in) (271 lb) GENDER: M BP: 149 / 83 LOCATION: [employer] PATIENT [facility] STATUS: Medical Center *ORDERING PHYSICIAN: * Amalia, *FELLOW: * Wes Montilla MD *SUPERVISING PHYSICIAN: * *RN: Bessie Irwin Diana *READING PHYSICIAN: * Miko Valdes MD, *BATCHER OPERATOR: * Dai Burnette [facility] -- INDICATIONS: Pre-operative. Shortness of breath. 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 The infusion was terminated after achieving the [...] --+ +-- (more content not included)... Normal [facility] CBCOrdered By: Raeann moore 05-05-2021 Hematocrit (Bld) [Volume fraction] 46.8 % 40.0 - 52.0 % [facility] Work Phone: ) Hemoglobin.gastrointestin al spec 1 Ql (Stl) 15.9 g/dL 13.0 - 18.0 g/dL [employer] Work Phone: 1) Interpretation and review of laboratory results Abnormal [facility] Work Phone: ) MCH (RBC) [Entitic mass] 31.9 pg 26. 0 - 34.0 pg [facility] Work Phone: () MCHC (RBC) [Mass/Vol] 34.0 % 32.0 - 36.0 % [facility] Work Phone: MCV (RBC) [Entitic vol] 94.0 fL 80.0 - 98.0 fL [facility] Work Phone: () Platelet distribution width (Bld) [Ratio] 13.6 % 11.5 - 14.5 % [facility] Work Phone: () Platelet mean volume (Bld) [Entitic vol] 9.0 fL 7.4 - 10.4 fL [facility] Work Phone: () Platelets (Bld) [#/Vol] 287 10*3/uL 140 - 440 10*3/uL [facility] Work Phone: () RBC (Bld) [#/Vol] 4.98 10*6/uL 4.40 - 5.9 0 10*6/uL [facility] Work Phone: ) WBC (Bld) [#/Vol] 11.0 10*3/uL High 3.6 - 10.7 10*3/uL [facility] Work Phone: () Test Performed by [facility], [address] [place] [id number] [facility] Work Phone: () [facility] Work Phone: () Comp Panel with Mg Reflexon 05-05-2021 ALP [Catalytic activity/Vol] 74 U/L Normal 38-126 [facility] [employer] Comment on above: Performed By: #### C MP3M, HEMOG #### [facility] [address], [place] ALT [Catalytic activity/Vol] 38 U/L Normal 0-49 [facility] Comment on above: Result Comment: The ALT test is performed by an updated assay method. Please note that the reference intervals have been changed and are now sex specific. Performed By: #### C MP3M, HEMOG #### [facility] [address], [place] AST [Catalytic activity/Vol] 28 U/L Normal 15-46 [facility] Comment on above: Performed By: #### C MP3M, HEMOG #### [facility] [address], [place] Calcium [Mass/Vol] 9.6 mg/dL Normal 8.4-10.4 [facility] Comment on above: Performed By: #### C MP3M, HEMOG #### [facility] [address], [place] Glucose [Mass/Vol] 55 mg/dL Low 70-100 [facility] Comment on above: Performed By: #### C MP3M, HEMOG #### [facility] [address], [place] Protein [Mass/Vol] 8.1 g/dL Normal 6.3-8.2 [facility] Comment on above: Performed By: #### C MP3M, HEMOG #### [facility] [address], [place] Urea nitrogen [Mass/Vol] 23 mg/dL High 7-20 [facility] Comment on above: Performed By: #### C MP3M, HEMOG #### [facility] [address], [place] Anion gap [Moles/Vol] 9 mmol/L Normal 3-13 [facility] Comment on above: Performed By: #### C MP3M, HEMOG #### [facility] [address], [place] Bilirubin [Mass/Vol] 1.3 mg/dL Normal 0.2-1.3 [facility] Comment on above: Performed By: #### C MP3M, HEMOG #### [facility] [address], [place] CO2 [Moles/Vol] 30 mmol/L Normal 22-30 [facility] Comment on above: Performed By: #### C MP3M, HEMOG #### [facility] [address], [place] Creatinine [Mass/Vol] 1.02 mg/dL Normal 0.52-1.25 [facility] Comment on above: Performed By: #### C MP3M, HEMOG #### [facility] [address], [place] GFR/1.73 sq M.predicted among blacks MDRD (S/P/Bld) [Vol rate/Area] 81.9 mL/min/{1.73_m2} Normal >60 [facility] Comment on above: Performed By: #### C MP3M, HEMOG #### [facility] [address], [place] GFR/1.73 sq M.predicted among non-blacks MDRD (S/P/Bld) [Vol rate/Area] 70.7 mL/min/{1.73_m2} Normal >60 [facility] Comment on above: Result Comment: KDIG [...] Performed By: #### C MP3M, HEMOG #### [facility] [address] [place] [address] Albumin [Mass/Vol] 4.8 g/dL Normal 3.5-5.0 [facility] Comment on above: Performed By: #### C MP3M, HEMOG #### [facility] [address] [place] [address] Chloride [Moles/Vol] 101 mmol/L Normal 98-107 [facility] Comment on above: Performed By: #### C MP3M, HEMOG #### [facility] [address] [place] [address] Potassium [Moles/Vol] 3.9 mmol/L Normal 3.5-5.1 [facility] Comment on above: Performed By: #### C MP3M, HEMOG #### [facility] [address] [place] [address] Sodium [Moles/Vol] 140 mmol/L Normal 135-145 [facility] Comment on above: Performed By: #### C MP3M, HEMOG #### [facility] [address] [place] [address] Comprehensive Metabolic Pane l w/ Reflex to MGOrdered By: Raeann Holland on 05-05-2021 Albumin [Mass/Vol] 4.8 g/dL 3.5 - 5.0 g/dL [facility] Work Phone: [phone] ALP (Bld) [Catalytic activity/Vol] 74 U/L 38 - 126 U/L [facility] Work Phone: [phone] ALT [Catalytic activity/Vol] 38 U/L 0 - 49 U/L [facility] Work Phone: [phone] Comment on above: The ALT test is perf ormed by an updated assay method. Please note that the reference intervals have been changed and are now sex specific. Anion gap [Moles/Vol] 9 mmol/L 3 - 13 mmol/L [facility] Work Phone: AST [Catalytic activity/Vol] 28 U/L 15 - 46 U/L [facility] Work Phone: [phone] Bilirubin [Mass/Vol] 1.3 mg/dL 0.2 - 1 .3 mg/dL [facility] Work Phone: [phone] Calcium [Mass/Vol] 9.6 mg/dL 8.4 - 10. 4 mg/dL [facility] Work Phone: [phone] Chloride [Moles/Vol] 101 mmol/L 98 - 10 7 mmol/L [facility] Work Phone: [phone] CO2 [Moles/Vol] 30 mmol/L 22 - 30 mmol/L [facility] Work Phone: [phone] Creatinine [Mass/Vol] 1.02 mg/dL 0.52 - 1.25 mg/dL [facility] Work Phone: [phone] EGFR IF NonAfrican Croatian 70.7 mL/min >60 [facility] Work Phone: [phone] Comment on above: KDIGO guidelines pro [...] fraction] 8.1 g/dL 6.3 - 8.2 g/dL [facility] Work Phone: GFR/1.73 sq M.predicted among blacks MDRD (S/P/Bld) [Vol rate/Area] 81.9 mL/min/{1.73_m2} >60 [facility] Work Phone: [phone] Glucose [Mass/Vol] 55 mg/dL Low 70 - 100 mg/dL [facility] Work Phone: [phone] Interpretation and review of laboratory results Abnormal [facility] Work Phone: [phone] Potassium [Moles/Vol] 3.9 mmol/L 3.5 - 5.1 mmol/L [facility] Work Phone: Sodium [Moles/Vol] 140 mmol/L 135 - 145 mmol/L [facility] Work Phone: [phone] Urea nitrogen (BldV) [Mass/Vol] 23 mg/dL High 7 - 20 mg/dL [facility] Work Phone: Test Performed by [facility], [address] [place] [address] [facility] Work Phone: [phone] [facility] Work Phone: Hemogramon 05-05-2021 Erythrocyte distribution width (RBC) [Ratio] 13.6 % Normal 11.5-14.5 [facility] Comment on above: Performed By: #### C MP3M, HEMOG #### [address] [address] [place], [place] Hematocrit (Bld) [Volume fraction] 46.8 % Normal 40.0-52.0 [facility] Comment on above: Performed By: #### C MP3M, HEMOG #### [address] [address] Hemoglobin (Bld) [Mass/Vol] 15.9 g/dL Normal 13.0-18.0 [facility] Comment on above: Performed By: #### C MP3M, HEMOG #### [address] [address] [place] [address] MCH (RBC) [Entitic mass] 31.9 pg Normal 26.0-34.0 [facility] Comment on above: Performed By: #### C MP3M, HEMOG #### [address] [address] MCHC 34.0 % Normal 32.0-36.0 [facility] Comment on above: Performed By: #### C MP3M, HEMOG #### [address] [address] MCV (RBC) [Entitic vol] 94.0 fL Normal 80.0-98.0 [facility] Comment on above: Performed By: #### C MP3M, HEMOG #### [facility] [address], [place] Platelet mean volume (Bld) [Entitic vol] 9.0 fL Normal 7.4-10.4 [facility] Comment on above: Performed By: #### C MP3M, HEMOG #### [address], [place] Platelets (Bld) [#/Vol] 287 10*3/uL Normal 140-440 [facility] Comment on above: Performed By: #### C MP3M, HEMOG #### [address] [address] [place], [place] RBC (Bld) [#/Vol] 4.98 10*6/uL Normal 4.40-5.90 [facility] Comment on above: Performed By: #### C MP3M, HEMOG #### [address] [address] [place], [place] WBC (Bld) [#/Vol] 11.0 10*3/uL High 3.6-10.7 [facility] Comment on above: Performed By: #### C MP3M, HEMOG #### [facility] [address], [place] TS GELon 05-05-2021 TS GEL ABO Group: A Rh, Gel: POS Antibody Screen Gel: NEG Normal [facility] Comment on above: Performed By: #### T SGL #### [facility] TYPE AND SCREENOrdered By: Khushbu Holland on 05-05-2021 ABO Grouping A [facility] Work Phone: Rh Type Positive [facility] Work Phone: Test Performed by [facility], [place] [address] [facility] Work Phone: [facility] Work Phone: Otheron 08-16-2006 CONVERTED ELECTRONIC SIGNATURE GUILLERMO SIMPSON M.D., PATHOLOGIST (Electronic signature on file) Final Signed Out: 08/16/2006 12:36 [facility] CONVERTED FINAL DIAGNOSIS LEFT KNEE, EXC ISION - DEGENERATIVE CHANGES OF ARTICULAR CARTILAGE CONSISTENT WITH OSTEOARTHRITIS. [facility] CONVERTED ORDERING PROVIDER Ordering Provider: WYATT NOBLE [facility] Otheron 02-06-2006 CONVERTED ELECTRONIC SIGNATURE BILL MELTON M.D., PATHOLOGIST (Electronic signature on file) Final Signed Out: 02/06/2006 15:13 [facility] CONVERTED FINAL DIAGNOSIS LEFT KNEE, EXC ISION - FIBROCARTILAGE WITH DEGENERATIVE CHANGES. SYNOVIUM WITH NONSPECIFIC REACTIVE CHANGES. [facility] CONVERTED ORDERING PROVIDER Ordering Provider: WYATT NOBLE [facility] Vital Signs Date Time Vital Sign Value Performing Clinician Facility 07-12-2025 20:38-0400 Body temperature 98.4 [degF] Dr. Ja Cooley MD Work Phone: [facility] 07-12-2025 20:38-0400 Diastolic blood pressure 91 mm[Hg] Dr. Ja Cooley MD Work Phone: [facility] 07-12-2025 20:38-0400 Heart rate 101 /min Dr. Ja Cooley MD Work Phone: [facility] 07-12-2025 20:38-0400 Respiratory rate 17 /min Dr. Ja Cooley MD Work Phone: [facility] 07-12-2025 20:38-0400 SaO2% (BldA) [Mass fraction] 93 % Dr. Ja Cooley MD Work Phone: [facility] 07-12-2025 20:38-0400 Systolic blood pressure 167 mm[Hg] Dr. Ja Cooley MD Work Phone: [facility] 07-12-2025 18:05-0400 Body height 177.[address] Ja Cooley MD Work Phone: [facility] 07-12-2025 18:05-0400 Body mass index (BMI) [Ratio] 35.2 kg/m2 Dr. Ja Cooley MD Work Phone: [facility] 07-12-2025 18:05-0400 Body weight 111.[address] Ja Cooley MD Work Phone: [facility] 07-07-2025 05:18-0400 Body temperature 98.7 [degF] Dr. Ja Cooley MD Work Phone: 6(180)379-877383 [place] [address] 07-07-2025 05:18-0400 Diastolic blood pressure 84 mm[Hg] Dr. Ja Cooley MD Work Phone: 4(564)668-621175 [address] 07-07-2025 05:18-0400 Heart rate 94 /min Dr. Ja Cooley MD Work Phone: 4(617)293-384783 [place] [address] 07-07-2025 05:18-0400 Respiratory rate 16 /min Dr. Ja Cooley MD Work Phone: 0(382)191-173075 [address] 07-07-2025 05:18-0400 SaO2% (BldA) [Mass fraction] 96 % Dr. Ja Cooley MD Work Phone: 4(167)532-008475 [address] 07-07-2025 05:18-0400 Systolic blood pressure 152 mm[Hg] Dr. Ja Cooley MD Work Phone: 2(770)495-650556 [place] [address] 07-07-2025 03:54-0400 Body height 177.[address] Ja Cooley MD Work Phone: 5(052)319-987556 [place] [address] 07-07-2025 03:54-0400 Body mass index (BMI) [Ratio] 34.7 kg/m2 Dr. Ja Cooley MD Work Phone: 5(458)603-330975 [address] 07-07-2025 03:54-0400 Body weight [address] Ja Cooley MD Work Phone: 4(066)304-991075 [address] 06-27-2025 08:54-0400 Body mass index (BMI) [Ratio] 35.6 kg/m2 Dr. Ja Cooley MD Work Phone: 6(778)757-956575 [address] 06-27-2025 08:54-0400 Body weight 112.[address] Ja Cooley MD Work Phone: 2(544)210-861756 [place] [address] 06-27-2025 08:54-0400 Diastolic blood pressure 71 mm[Hg] Dr. Ja Cooley MD Work Phone: [facility] 06-27-2025 08:54-0400 Heart rate 112 /min Dr. Ja Cooley MD Work Phone: 4(366)202-030575 [address] 06-27-2025 08:54-0400 Heart rate 102 /min Dr. Ja Cooley MD Work Phone: 4(030)748-734456 [place] [address] 06-27-2025 08:54-0400 Respiratory rate 18 /min Dr. Ja Cooley MD Work Phone: 1(240)431-637675 [address] 06-27-2025 08:54-0400 SaO2% (BldA) [Mass fraction] 90 % Dr. Ja Cooley MD Work Phone: 9(510)705-629656 [place] [address] 06-27-2025 08:54-0400 Systolic blood pressure 128 mm[Hg] Dr. Ja Cooley MD Work Phone: 0(913)667-052956 [place] [address] 06-26-2025 13:07-0400 Body temperature 98.4 [degF] Dr. Ja Cooley MD Work Phone: 4(220)693-547956 [place] [address] 06-26-2025 13:07-0400 Body weight 109.[address] Ja Cooley MD Work Phone: 5(349)900-230856 [place] [address] 06-26-2025 13:07-0400 Diastolic blood pressure 72 mm[Hg] Dr. Ja Cooley MD Work Phone: 7(598)214-198856 [place] [address] 06-26-2025 13:07-0400 Heart rate 99 /min Dr. Ja Cooley MD Work Phone: 1(868)422-965075 [address] 06-26-2025 13:07-0400 Respiratory rate 17 /min Dr. Ja Cooley MD Work Phone: 5(860)210-510956 [place] [address] 06-26-2025 13:07-0400 SaO2% (BldA) [Mass fraction] 90 % Dr. Ja Cooley MD Work Phone: 6(727)953-254175 [address] 06-26-2025 13:07-0400 Systolic blood pressure 128 mm[Hg] Dr. Ja Cooley MD Work Phone: [facility] 06-24-2025 14:39-0400 Body height 177.[address] Ja Cooley MD Work Phone: [facility] 06-24-2025 14:39-0400 Body mass index (BMI) [Ratio] 34.8 kg/m2 Dr. Ja Cooley MD Work Phone: 8(464)679-715783 [place] [address] 06-24-2025 14:39-0400 Body weight 110.[address] Ja Cooley MD Work Phone: 1(884)163-741156 [place] [address] 06-24-2025 14:39-0400 Diastolic blood pressure 72 mm[Hg] Dr. Ja Cooley MD Work Phone: 3(160)561-625383 [place] [address] 06-24-2025 14:39-0400 Heart rate 82 /min Dr. Ja Cooley MD Work Phone: 4(911)139-515183 [place] [address] 06-24-2025 14:39-0400 Respiratory rate 17 /min Dr. Ja Cooley MD Work Phone: 0(983)178-543475 [address] 06-24-2025 14:39-0400 SaO2% (BldA) [Mass fraction] 93 % Dr. Ja Cooley MD Work Phone: [facility] 06-24-2025 14:39-0400 Systolic blood pressure 127 mm[Hg] Dr. Ja Cooley MD Work Phone: [facility] 06-19-2025 21:29-0400 Body temperature 98.7 [degF] Dr. Ja Cooley MD Work Phone: [facility] 06-19-2025 21:29-0400 Diastolic blood pressure 66 mm[Hg] Dr. Ja Cooley MD Work Phone: [facility] 06-19-2025 21:29-0400 Heart rate 85 /min Dr. Ja Cooley MD Work Phone: 3(929)500-317583 [place] [address] 06-19-2025 21:29-0400 Respiratory rate 18 /min Dr. Ja Cooley MD Work Phone: [facility] 06-19-2025 21:29-0400 SaO2% (BldA) [Mass fraction] 93 % Dr. Ja Cooley MD Work Phone: [facility] 06-19-2025 21:29-0400 Systolic blood pressure 142 mm[Hg] Dr. Ja Cooley MD Work Phone: [facility] 06-19-2025 19:18-0400 Body height 177.[address] Ja Cooley MD Work Phone: [facility] 06-19-2025 19:18-0400 Body mass index (BMI) [Ratio] 35.3 kg/m2 Dr. Ja Cooley MD Work Phone: 6(998)412-372683 [place] [address] 06-19-2025 19:18-0400 Body weight 111.[address] Ja Cooley MD Work Phone: [facility] 06-12-2025 14:00-0400 Body temperature 98.3 [degF] Dr. Ja Cooley MD Work Phone: [facility] 06-12-2025 14:00-0400 Diastolic blood pressure 70 mm[Hg] Dr. Ja Cooley MD Work Phone: [facility] 06-12-2025 14:00-0400 Heart rate 69 /min Dr. Ja Cooley MD Work Phone: [facility] 06-12-2025 14:00-0400 Respiratory rate 14 /min Dr. Ja Cooley MD Work Phone: [facility] 06-12-2025 14:00-0400 SaO2% (BldA) [Mass fraction] 97 % Dr. Ja Cooley MD Work Phone: [facility] 06-12-2025 14:00-0400 Systolic blood pressure 118 mm[Hg] Dr. Ja Cooley MD Work Phone: [facility] 06-12-2025 10:40-0400 Body height 177.[address] Ja Cooley MD Work Phone: [facility] 06-12-2025 10:40-0400 Body mass index (BMI) [Ratio] 36.3 kg/m2 Dr. Ja Cooley MD Work Phone: 9(295)464-530383 [place] [address] 06-12-2025 10:40-0400 Body weight 114.[address] Ja Cooley MD Work Phone: 0(831)344-390356 [place] [address] 06-09-2025 16:10-0400 Body temperature 98.4 [degF] Dr. Ja Cooley MD Work Phone: 6(833)660-721156 [place] [address] 06-09-2025 16:10-0400 Diastolic blood pressure 80 mm[Hg] Dr. Ja Cooley MD Work Phone: 2(025)064-899856 [place] [address] 06-09-2025 16:10-0400 Heart rate 70 /min Dr. Ja Cooley MD Work Phone: 0(335)782-018756 [place] [address] 06-09-2025 16:10-0400 Respiratory rate 16 /min Dr. Ja Cooley MD Work Phone: 6(525)170-333156 [place] [address] 06-09-2025 16:10-0400 SaO2% (BldA) [Mass fraction] 95 % Dr. Ja Cooley MD Work Phone: 0(323)925-343256 [place] [address] 06-09-2025 16:10-0400 Systolic blood pressure 126 mm[Hg] Dr. Ja Cooley MD Work Phone: 7(709)867-011383 [place] [address] 06-09-2025 06:56-0400 Inhaled oxygen flow rate 3 L/min Dr. Ja Cooley MD Work Phone: 6(723)293-286556 [place] [address] 06-09-2025 04:55-0400 Body mass index (BMI) [Ratio] 35.3 kg/m2 Dr. Ja Cooley MD Work Phone: 5(159)559-480683 [place] [address] 06-09-2025 04:55-0400 Body weight 111.[address] Ja Cooley MD Work Phone: 3(354)917-353283 [place] [address] 06-08-2025 23:24-0400 Body height 177.[address] Ja Cooley MD Work Phone: 5(253)000-480883 [place] [address] 06-08-2025 21:41-0400 Body temperature 98 [degF] Dr. Ja Cooley MD Work Phone: 6(576)605-951383 [place] [address] 06-08-2025 21:41-0400 Diastolic blood pressure 76 mm[Hg] Dr. Ja Cooley MD Work Phone: 8(002)560-239583 [place] [address] 06-08-2025 21:41-0400 Heart rate 81 /min Dr. Ja Cooley MD Work Phone: 2(960)332-946256 [place] [address] 06-08-2025 21:41-0400 Respiratory rate 16 /min Dr. Ja Cooley MD Work Phone: 5(212)819-504356 [place] [address] 06-08-2025 21:41-0400 SaO2% (BldA) [Mass fraction] 94 % Dr. Ja Cooley MD Work Phone: 1(582)709-290883 [place] [address] 06-08-2025 21:41-0400 Systolic blood pressure 120 mm[Hg] Dr. Ja Cooley MD Work Phone: 3(511)883-908983 [place] [address] 06-08-2025 18:03-0400 Body height 177.[address] Ja Cooley MD Work Phone: 2(030)572-385856 [place] [address] 06-08-2025 18:03-0400 Body mass index (BMI) [Ratio] 35.9 kg/m2 Dr. Ja Cooley MD Work Phone: 0(139)581-121783 [place] [address] 06-08-2025 18:03-0400 Body weight 113.[address] Ja Cooley MD Work Phone: 9(369)963-093383 [place] [address] 05-11-2025 19:06-0400 Body temperature 98.4 [degF] Dr. Ja Cooley MD Work Phone: 6(746)995-070783 [place] [address] 05-11-2025 19:06-0400 Diastolic blood pressure 69 mm[Hg] Dr. Ja Cooley MD Work Phone: [facility] 05-11-2025 19:06-0400 Heart rate 72 /min Dr. Ja Cooley MD Work Phone: [facility] 05-11-2025 19:06-0400 Respiratory rate 16 /min Dr. Ja Cooley MD Work Phone: [facility] 05-11-2025 19:06-0400 SaO2% (BldA) [Mass fraction] 97 % Dr. Ja Cooley MD Work Phone: [facility] 05-11-2025 19:06-0400 Systolic blood pressure 138 mm[Hg] Dr. Ja Cooley MD Work Phone: [facility] 05-11-2025 17:49-0400 Body height 177.[address] Ja Cooley MD Work Phone: [facility] 05-11-2025 17:49-0400 Body mass index (BMI) [Ratio] 36.6 kg/m2 Dr. Ja Cooley MD Work Phone: [facility] 05-11-2025 17:49-0400 Body weight [address] Ja Cooley MD Work Phone: [facility] 04-13-2025 22:27-0400 Diastolic blood pressure 75 mm[Hg] ANALY Powell MD Work Phone: [facility] 04-13-2025 22:27-0400 Heart rate 77 /min ANALY Powell MD Work Phone: [facility] 04-13-2025 22:27-0400 Respiratory rate 20 /min ANALY Powell MD Work Phone: [facility] 04-13-2025 22:27-0400 SaO2% (BldA) [Mass fraction] 97 % ANALY Powell MD Work Phone: [facility] 04-13-2025 22:27-0400 Systolic blood pressure 133 mm[Hg] ANALY Powell MD Work Phone: [facility] 04-13-2025 20:40-0400 Body temperature 98.01 [degF] ANALY Powell MD Work Phone: [facility] 04-09-2025 13:13-0400 Body temperature 96.8 [degF] Dr. Ja Cooley MD Work Phone: [facility] 04-09-2025 13:13-0400 Diastolic blood pressure 65 mm[Hg] Dr. Ja Cooley MD Work Phone: [facility] 04-09-2025 13:13-0400 Heart rate 76 /min Dr. Ja Cooley MD Work Phone: [facility] 04-09-2025 13:13-0400 Respiratory rate 18 /min Dr. aJ Cooley MD Work Phone: [facility] 04-09-2025 13:13-0400 SaO2% (BldA) [Mass fraction] 98 % Dr. Ja Cooley MD Work Phone: [facility] 04-09-2025 13:13-0400 Systolic blood pressure 145 mm[Hg] Dr. Ja Cooley MD Work Phone: [facility] 04-09-2025 11:18-0400 Body height [address] Ja Cooley MD Work Phone: [facility] 04-09-2025 11:18-0400 Body mass index (BMI) [Ratio] 35.8 kg/m2 Dr. Ja Cooley MD Work Phone: [facility] 04-09-2025 11:18-0400 Body weight 113.[address] Ja Cooley MD Work Phone: [facility] 03-20-2025 16:23-0400 Diastolic blood pressure 78 mm[Hg] Dr. Ja Cooley MD Work Phone: [facility] 03-20-2025 16:23-0400 Systolic blood pressure 164 mm[Hg] Dr. Ja Cooley MD Work Phone: [facility] 03-20-2025 15:16-0400 Body height 177.[address] Ja Cooley MD Work Phone: [facility] 03-20-2025 15:16-0400 Body mass index (BMI) [Ratio] 34.9 kg/m2 Dr. Ja Cooley MD Work Phone: 4(521)034-745975 [address] 03-20-2025 15:16-0400 Body temperature 98.2 [degF] Dr. Ja Cooley MD Work Phone: 0(511)446-225456 [place] [address] 03-20-2025 15:16-0400 Body weight 110.[address] Ja Cooley MD Work Phone: 9(086)178-936056 [place] [address] 03-20-2025 15:16-0400 Diastolic blood pressure 72 mm[Hg] Dr. Ja Cooley MD Work Phone: 7(801)674-566156 [place] [address] 03-20-2025 15:16-0400 Heart rate 86 /min Dr. Ja Cooley MD Work Phone: 1(226)052-583856 [place] [address] 03-20-2025 15:16-0400 Respiratory rate 15 /min Dr. Ja Cooley MD Work Phone: 7(873)367-679356 [place] [address] 03-20-2025 15:16-0400 SaO2% (BldA) [Mass fraction] 95 % Dr. Ja Cooley MD Work Phone: 1(293)453-811375 [address] 03-20-2025 15:16-0400 Systolic blood pressure 134 mm[Hg] Dr. Ja Cooley MD Work Phone: 6(202)746-161283 [place] [address] 02-14-2025 21:12-0400 Body height 177.[address] Ja Cooley MD Work Phone: 3(031)336-213483 [place] [address] 02-14-2025 21:12-0400 Body temperature 97.3 [degF] Dr. Ja Cooley MD Work Phone: 6(095)279-993083 [place] [address] 02-14-2025 21:12-0400 Diastolic blood pressure 60 mm[Hg] Dr. Ja Cooley MD Work Phone: 9(033)262-858975 [address] 02-14-2025 21:12-0400 Heart rate 93 /min Dr. Ja Cooley MD Work Phone: [facility] 02-14-2025 21:12-0400 Respiratory rate 18 /min Dr. Ja Cooley MD Work Phone: [facility] 02-14-2025 21:12-0400 SaO2% (BldA) [Mass fraction] 92 % Dr. Ja Cooley MD Work Phone: 6(880)498-750483 [place] [address] 02-14-2025 21:12-0400 Systolic blood pressure 137 mm[Hg] Dr. Ja Cooley MD Work Phone: 0(473)334-669583 [place] [address] 02-06-2025 14:25-0400 Diastolic blood pressure 64 mm[Hg] Dr. Ja Cooley MD Work Phone: 8(610)494-359475 [address] 02-06-2025 14:25-0400 Systolic blood pressure 116 mm[Hg] Dr. Ja Cooley MD Work Phone: 5(577)771-972983 [place] [address] 02-06-2025 12:56-0400 Body temperature 97.8 [degF] Dr. Ja Cooley MD Work Phone: 9(077)816-074183 [place] [address] 02-06-2025 12:56-0400 Body weight 110.[address] Ja Cooley MD Work Phone: 8(431)670-202083 [place] [address] 02-06-2025 12:56-0400 Heart rate 82 /min Dr. Ja Cooley MD Work Phone: [facility] 02-06-2025 12:56-0400 Respiratory rate 17 /min Dr. Ja Cooley MD Work Phone: [facility] 02-06-2025 12:56-0400 SaO2% (BldA) [Mass fraction] 95 % Dr. Ja Cooley MD Work Phone: [facility] 12-10-2024 14:30-0500 Diastolic blood pressure 70 mm[Hg] Dr. Ja Cooley MD Work Phone: 7(462)224-189083 [place] [address] 12-10-2024 14:30-0500 Systolic blood pressure 130 mm[Hg] Dr. Ja Cooley MD Work Phone: [facility] 12-10-2024 10:36-0500 Body height 177.[address] Ja Cooley MD Work Phone: [facility] 12-10-2024 10:36-0500 Body mass index (BMI) [Ratio] 34.7 kg/m2 Dr. Ja Cooley MD Work Phone: [facility] 12-10-2024 10:36-0500 Body temperature 97.7 [degF] Dr. Ja Cooley MD Work Phone: [facility] 12-10-2024 10:36-0500 Body weight 109.[address] Ja Cooley MD Work Phone: [facility] 12-10-2024 10:36-0500 Heart rate 77 /min Dr. Ja Cooley MD Work Phone: [facility] 12-10-2024 10:36-0500 Respiratory rate 14 /min Dr. Ja Cooley MD Work Phone: [facility] 12-10-2024 10:36-0500 SaO2% (BldA) [Mass fraction] 97 % Dr. Ja Cooley MD Work Phone: [facility] 12-05-2024 19:35-0500 Body temperature 98 [degF] Dr. Ja Cooley MD Work Phone: [facility] 12-05-2024 19:35-0500 Diastolic blood pressure 75 mm[Hg] Dr. Ja Cooley MD Work Phone: [facility] 12-05-2024 19:35-0500 Heart rate 67 /min Dr. Ja Cooley MD Work Phone: [facility] 12-05-2024 19:35-0500 Respiratory rate 18 /min Dr. Ja Cooley MD Work Phone: [facility] 12-05-2024 19:35-0500 SaO2% (BldA) [Mass fraction] 97 % Dr. Ja Cooley MD Work Phone: [facility] 12-05-2024 19:35-0500 Systolic blood pressure 118 mm[Hg] Dr. Ja Cooley MD Work Phone: [facility] 12-05-2024 17:15-0500 Body mass index (BMI) [Ratio] 34.5 kg/m2 Dr. Ja Cooley MD Work Phone: [facility] 12-05-2024 17:15-0500 Body weight 109.[address] Ja Cooley MD Work Phone: [facility] 10-12-2024 13:02-0500 Body temperature 98.2 [degF] Dr. Ja Cooley MD Work Phone: 9(723)764-974483 [place] [address] 10-12-2024 13:02-0500 Diastolic blood pressure 84 mm[Hg] Dr. Ja Cooley MD Work Phone: [facility] 10-12-2024 13:02-0500 Heart rate 78 /min Dr. Ja Cooley MD Work Phone: [facility] 10-12-2024 13:02-0500 Respiratory rate 16 /min Dr. Ja Cooley MD Work Phone: [facility] 10-12-2024 13:02-0500 SaO2% (BldA) [Mass fraction] 95 % Dr. Ja Cooley MD Work Phone: [facility] 10-12-2024 13:02-0500 Systolic blood pressure 121 mm[Hg] Dr. Ja Cooley MD Work Phone: [facility] 10-12-2024 11:16-0500 Body mass index (BMI) [Ratio] 35.6 kg/m2 Dr. Ja Cooley MD Work Phone: [facility] 10-12-2024 11:16-0500 Body weight 112.[address] Ja Cooley MD Work Phone: [facility] 03-25-2024 14:24-0400 Body height 177.[address] Ja Cooley Work Phone: [facility] 03-25-2024 14:24-0400 Body mass index (BMI) [Ratio] 36.3 kg/m2 Dr. Ja Cooley Work Phone: [facility] 03-25-2024 14:24-0400 Body temperature 98 [degF] Dr. Ja Cooley Work Phone: [facility] 03-25-2024 14:24-0400 Body weight 114.[address] Ja Cooley Work Phone: [facility] 03-25-2024 14:24-0400 Diastolic blood pressure 58 mm[Hg] Dr. Ja Cooley Work Phone: [facility] 03-25-2024 14:24-0400 Heart rate 78 /min Dr. Ja Cooley Work Phone: [facility] 03-25-2024 14:24-0400 Respiratory rate 17 /min Dr. Ja Cooley Work Phone: [facility] 03-25-2024 14:24-0400 SaO2% (BldA) [Mass fraction] 94 % Dr. Ja Cooley Work Phone: [facility] 03-25-2024 14:24-0400 Systolic blood pressure 124 mm[Hg] Dr. Ja Cooley Work Phone: [facility] 11-23-2023 14:02-0500 Body height 177.[address] Ja Coloey Work Phone: [facility] 11-23-2023 14:02-0500 Body mass index (BMI) [Ratio] 37 kg/m2 Dr. Ja Cooley Work Phone: [facility] 11-23-2023 14:02-0500 Body temperature 97.8 [degF] Dr. Ja Cooley Work Phone: [facility] 11-23-2023 14:02-0500 Body weight 117.[address] Ja Cooley Work Phone: [facility] 11-23-2023 14:02-0500 Diastolic blood pressure 84 mm[Hg] Dr. Ja Cooley Work Phone: [facility] 11-23-2023 14:02-0500 Heart rate 75 /min Dr. Ja Cooley Work Phone: [facility] 11-23-2023 14:02-0500 Respiratory rate 17 /min Dr. Ja Cooley Work Phone: [facility] 11-23-2023 14:02-0500 SaO2% (BldA) [Mass fraction] 93 % Dr. Ja Cooley Work Phone: [facility] 11-23-2023 14:02-0500 Systolic blood pressure 112 mm[Hg] Dr. Ja Cooley Work Phone: [facility] 08-07-2023 14:26-0400 Body height 177.[address] Ja Cooley Work Phone: [facility] 08-07-2023 14:26-0400 Body mass index (BMI) [Ratio] 38 kg/m2 Dr. Ja Cooley Work Phone: [facility] 08-07-2023 14:26-0400 Body temperature 98.4 [degF] Dr. Ja Cooley Work Phone: [facility] 08-07-2023 14:26-0400 Body weight 120.[address] Ja Cooley Work Phone: [facility] 08-07-2023 14:26-0400 Diastolic blood pressure 88 mm[Hg] Dr. Ja Cooley Work Phone: [facility] 08-07-2023 14:26-0400 Heart rate 74 /min Dr. Ja Cooley Work Phone: [facility] 08-07-2023 14:26-0400 Respiratory rate 17 /min Dr. Ja Cooley Work Phone: [facility] 08-07-2023 14:26-0400 SaO2% (BldA) [Mass fraction] 96 % Dr. Ja Cooley Work Phone: [facility] 08-07-2023 14:26-0400 Systolic blood pressure 138 mm[Hg] Dr. Ja Cooley Work Phone: [facility] 04-12-2023 10:15-0400 Body height 177.[address] Ja Cooley Work Phone: [facility] 04-12-2023 10:15-0400 Body mass index (BMI) [Ratio] 37 kg/m2 Dr. Ja Cooley Work Phone: [facility] 04-12-2023 10:15-0400 Body weight 117.[address] Ja Cooley Work Phone: [facility] 04-12-2023 10:15-0400 Diastolic blood pressure 70 mm[Hg] Dr. Ja Cooley Work Phone: [facility] 04-12-2023 10:15-0400 Heart rate 60 /min Dr. Ja Cooley Work Phone: [facility] 04-12-2023 10:15-0400 Respiratory rate 18 /min Dr. Ja Cooley Work Phone: [facility] 04-12-2023 10:15-0400 Systolic blood pressure 119 mm[Hg] Dr. Ja Cooley Work Phone: [facility] 04-11-2023 21:17-0400 Diastolic blood pressure 74 mm[Hg] Dr. Ja Cooley Work Phone: [facility] 04-11-2023 21:17-0400 Systolic blood pressure 124 mm[Hg] Dr. Ja Cooley Work Phone: [facility] 04-11-2023 21:16-0400 Heart rate 61 /min Dr. Ja Cooley Work Phone: [facility] 04-11-2023 09:55-0400 Body mass index (BMI) [Ratio] 37.3 kg/m2 Dr. Ja Cooley Work Phone: [facility] 04-11-2023 09:55-0400 Body temperature 97.8 [degF] Dr. Ja Cooley Work Phone: [facility] 04-11-2023 09:55-0400 Body weight 118.[address] Ja Cooley Work Phone: [facility] 04-11-2023 09:55-0400 Diastolic blood pressure 66 mm[Hg] Dr. Ja Cooley Work Phone: [facility] 04-11-2023 09:55-0400 Heart rate 70 /min Dr. Ja Cooley Work Phone: [facility] 04-11-2023 09:55-0400 Respiratory rate 17 /min Dr. Ja Cooley Work Phone: [facility] 04-11-2023 09:55-0400 SaO2% (BldA) [Mass fraction] 98 % Dr. Ja Cooley Work Phone: [facility] 04-11-2023 09:55-0400 Systolic blood pressure 140 mm[Hg] Dr. Ja Cooley Work Phone: [facility] 02-11-2023 12:46-0400 Body height 177.8 cm [facility] 02-11-2023 12:46-0400 Body mass index (BMI) [Ratio] 36.8 kg/m2 [facility] 02-11-2023 12:46-0400 Body temperature 97 [degF] [facility] 02-11-2023 12:46-0400 Body weight 116.52 kg [facility] 02-11-2023 12:46-0400 Diastolic blood pressure 68 mm[Hg] [facility] 02-11-2023 12:46-0400 Heart rate 82 /min [facility] 02-11-2023 12:46-0400 Respiratory rate 18 /min [facility] 02-11-2023 12:46-0400 SaO2% (BldA) [Mass fraction] 97 % [facility] 02-11-2023 12:46-0400 Systolic blood pressure 149 mm[Hg] [facility] 12-12-2022 13:47-0500 Body height 177.8 cm Gary Ruiz APRN.GENERAL PARTNER Work Phone: [facility] 12-12-2022 13:47-0500 Body weight 118.3 kg Gary Ruiz APRN.GENERAL PARTNER Work Phone: [facility] 12-12-2022 13:47-0500 SaO2% (BldA) [Mass fraction] 96 % Gary Ruiz APRN.GENERAL PARTNER Work Phone: [facility] 08-04-2022 13:56-0400 Diastolic blood pressure 86 mm[Hg] Jaylyn Nieves MD Work Phone: [facility] 08-04-2022 13:56-0400 Heart rate 107 /min Jaylyn Nieves MD Work Phone: [facility] 08-04-2022 13:56-0400 Respiratory rate 16 /min Jaylyn Nieves MD Work Phone: [facility] 08-04-2022 13:56-0400 SaO2% (BldA) [Mass fraction] 95 % Jaylyn Nieves MD Work Phone: [facility] 08-04-2022 13:56-0400 Systolic blood pressure 109 mm[Hg] Jaylyn Nieves MD Work Phone: [facility] 04-12-2022 08:46-0400 Body height 177.[address] Patricia Mcgowan Work Phone: [facility] Work Phone: 04-12-2022 08:46-0400 Body mass index (BMI) [Ratio] 38.4 kg/m2 Dr. Patricia Mcgowan Work Phone: [facility] Work Phone: 04-12-2022 08:46-0400 Body weight 121.[address] Patricia Mcgowan Work Phone: [facility] Work Phone: 04-12-2022 08:46-0400 Diastolic blood pressure 71 mm[Hg] Dr. Patricia Mcgowan Work Phone: [facility] Work Phone: 04-12-2022 08:46-0400 Heart rate 86 /min Dr. Patricia Mcgowan Work Phone: [facility] Work Phone: 04-12-2022 08:46-0400 Respiratory rate 16 /min Dr. Patricia Mcgowan Work Phone: [facility] Work Phone: 04-12-2022 08:46-0400 SaO2% (BldA) [Mass fraction] 97 % Dr. Patricia Mcgowan Work Phone: [facility] Work Phone: 04-12-2022 08:46-0400 Systolic blood pressure 113 mm[Hg] Dr. Patricia Mcgowan Work Phone: [facility] Work Phone: 04-12-2022 08:46-0400 Body height 177.[address] Patricia Mcgowan Work Phone: [facility] Work Phone: 04-12-2022 08:46-0400 Body mass index (BMI) [Ratio] 38.4 kg/m2 Dr. Patricia Mcgowan Work Phone: [facility] Work Phone: 04-12-2022 08:46-0400 Body weight 121.[address] Patricia Mcgowan Work Phone: [facility] Work Phone: 04-12-2022 08:46-0400 Diastolic blood pressure 71 mm[Hg] Dr. Patricia Mcgowan Work Phone: [facility] Work Phone: 04-12-2022 08:46-0400 Heart rate 86 /min Dr. Patricia Mcgowan Work Phone: [facility] Work Phone: 04-12-2022 08:46-0400 Respiratory rate 16 /min Dr. Patricia Mcgowan Work Phone: [facility] Work Phone: 04-12-2022 08:46-0400 SaO2% (BldA) [Mass fraction] 97 % Dr. Patricia Mcgowan Work Phone: [facility] Work Phone: 04-12-2022 08:46-0400 Systolic blood pressure 113 mm[Hg] Dr. Patricia Mcgowan Work Phone: [facility] Work Phone: 03-29-2022 12:09-0400 SaO2% (BldA) [Mass fraction] 98 % Jaylyn Nieves MD Work Phone: [facility] 03-17-2022 15:50-0400 Diastolic blood pressure 77 mm[Hg] Jaylyn Nieves MD Work Phone: [facility] 03-17-2022 15:50-0400 Systolic blood pressure 120 mm[Hg] Jaylyn Nieves MD Work Phone: [facility] 03-17-2022 14:51-0400 Body height 177.8 cm Jaylyn Nieves MD Work Phone: [facility] 03-17-2022 14:51-0400 Body weight 125.76 kg Jaylyn Nieves MD Work Phone: [facility] 03-17-2022 14:51-0400 Heart rate 101 /min Jaylyn Nieves MD Work Phone: [facility] 03-17-2022 14:51-0400 SaO2% (BldA) [Mass fraction] 98 % Jaylyn Nieves MD Work Phone: [facility] 01-28-2022 02:11-0500 Diastolic blood pressure 89 mm[Hg] Dr. Patricia Mcgowan Work Phone: [facility] Work Phone: 01-28-2022 02:11-0500 Heart rate 96 /min Dr. Patricia Mcgowan Work Phone: [facility] Work Phone: 01-28-2022 02:11-0500 Respiratory rate 18 /min Dr. Patricia Mcgowan Work Phone: [facility] Work Phone: 01-28-2022 02:11-0500 SaO2% (BldA) [Mass fraction] 94 % Dr. Patricia Mcgowan Work Phone: [facility] Work Phone: 01-28-2022 02:11-0500 Systolic blood pressure 158 mm[Hg] Dr. Patricia Mcgowan Work Phone: [facility] Work Phone: 01-28-2022 01:22-0500 Body mass index (BMI) [Ratio] 399.4 kg/m2 Dr. Patricia Mcgowan Work Phone: [facility] Work Phone: 01-28-2022 01:22-0500 Body temperature 97.6 [degF] Dr. Patricia Mcgowan Work Phone: [facility] Work Phone: 01-28-2022 01:22-0500 Body weight [address] Patricia Mcgowan Work Phone: [facility] Work Phone: 01-28-2022 01:11-0500 Diastolic blood pressure 89 mm[Hg] [facility] Work Phone: 01-28-2022 01:11-0500 Heart rate 96 /min [facility] Work Phone: 01-28-2022 01:11-0500 Respiratory rate 18 /min [facility] Work Phone: 01-28-2022 01:11-0500 SaO2% (BldA) [Mass fraction] 94 % [facility] Work Phone: 01-28-2022 01:11-0500 Systolic blood pressure 158 mm[Hg] [facility] Work Phone: 01-28-2022 00:22-0500 Body height 177.8 cm [facility] Work Phone: 01-28-2022 00:22-0500 Body mass index (BMI) [Ratio] 399.4 kg/m2 [facility] Work Phone: 01-28-2022 00:22-0500 Body temperature 97.6 [degF] [facility] Work Phone: 01-28-2022 00:22-0500 Body weight 1263 kg [facility] Work Phone: 10-05-2021 11:00-0500 Diastolic blood pressure 63 mm[Hg] Barb Morton MD Work Phone: [facility] Comment on above: Auto 10-05-2021 11:00-0500 Heart rate 99 /min Barb Morton MD Work Phone: [facility] 10-05-2021 11:00-0500 Systolic blood pressure 91 mm[Hg] Barb Morton MD Work Phone: [facility] Comment on above: Auto 10-05-2021 10:45-0500 Body weight 116.57 kg Barb Morton MD Work Phone: [facility] 05-19-2021 10:00-0400 Diastolic blood pressure 70 mm[Hg] Nii Altman MD Work Phone: [facility] Work Phone: 05-19-2021 10:00-0400 Heart rate 91 /min Nii Altman MD Work Phone: [facility] Work Phone: 05-19-2021 10:00-0400 Respiratory rate 15 /min Nii Altman MD Work Phone: [facility] Work Phone: 05-19-2021 10:00-0400 SaO2% (BldA) [Mass fraction] 96 % Nii Altman MD Work Phone: [facility] Work Phone: 05-19-2021 10:00-0400 Systolic blood pressure 119 mm[Hg] Nii Altman MD Work Phone: [facility] Work Phone: 05-19-2021 08:51-0400 Body temperature 97.11 [degF] Nii Altman MD Work Phone: [facility] Work Phone: 05-19-2021 06:58-0400 Body height 177.8 cm Nii Altman MD Work Phone: [facility] Work Phone: 05-19-2021 06:58-0400 Body mass index (BMI) [Ratio] 38.88 kg/m2 Nii Altman MD Work Phone: [facility] Work Phone: 05-19-2021 06:58-0400 Body weight 122.92 kg Nii Altman MD Work Phone: [facility] Work Phone: 05-11-2021 09:45-0400 Body mass index (BMI) [Ratio] 38.88 kg/m2 Raeann Norfolk ONLINE MERCHANDISING COORDINATOR - GENERAL PARTNER Work Phone: [facility] Work Phone: 05-11-2021 09:45-0400 Body weight 122.92 kg Raeann Norfolk ONLINE MERCHANDISING COORDINATOR - GENERAL [employer]NER Work Phone: [facility] Work Phone: Comment on above: per medical record 05-05-2021 10:22-0400 Body temperature 97.3 [degF] Nii Altman MD Work Phone: [facility] Work Phone: 05-05-2021 10:22-0400 Diastolic blood pressure 82 mm[Hg] Nii Altman MD Work Phone: [facility] Work Phone: 05-05-2021 10:22-0400 Heart rate 74 /min Nii Altman MD Work Phone: [facility] Work Phone: 05-05-2021 10:22-0400 Respiratory rate 15 /min Nii Altman MD Work Phone: [facility] Work Phone: 05-05-2021 10:22-0400 SaO2% (BldA) [Mass fraction] 97 % Nii Altman MD Work Phone: [facility] Work Phone: 05-05-2021 10:22-0400 Systolic blood pressure 158 mm[Hg] Nii Altman MD Work Phone: [facility] Work Phone: 05-05-2021 10:21-0400 Body height 177.8 cm Nii Altman MD Work Phone: [facility] Work Phone: 05-05-2021 10:21-0400 Body mass index (BMI) [Ratio] 38.88 kg/m2 Nii Altman MD Work Phone: [facility] Work Phone: 05-05-2021 10:21-0400 Body weight 122.92 kg Nii Altman MD Work Phone: [facility] Work Phone: Encounters Encounter Date Encounter Type Care Provider Facility Start: 07-12-2025 End: 07-12-2025 Emergency department patient visit Dr. Ja Cooley MD Work Phone: -Emergency Department Work Phone: Start: 07-07-2025 End: 07-07-2025 Emergency department patient visit Dr. Ja Cooley MD Work Phone: -Emergency Department Work Phone: Start: 07-05-2025 ambulatory Ja Cooley Facilit y:[facility] Start: 07-05-[address] Ja Cooley MD -[facility] Work Phone: Start: 07-04-2025 ambulatory Ja Cooley Facilit y:[facility] Start: 06-27-2025 End: 06-27-2025 Patient encounter procedure Christel Bae NP-[place] [facility] Work Phone: Start: 06-27-2025 End: 06-27-[address] Ja Cooley MD Work Phone: -[facility] Start: 06-26-2025 End: 06-26-[address] Vick Santo MD -[facility] Work Phone: Start: 06-26-2025 End: 06-26-[address] Ja Cooley MD Work Phone: -[facility] Start: 06-24-2025 End: 06-24-[address] Curt Isaacs MD -[facility] Work Phone: Start: 06-24-2025 End: 06-24-[address] Ja Cooley MD Work Phone: -[facility] Start: 06-19-2025 End: 06-19-2025 Emergency department patient visit Dr. Ja Cooley MD Work Phone: -Emergency Department Work Phone: Start: 06-12-2025 End: 06-12-2025 Emergency department patient visit Dr. Ja Cooley MD Work Phone: -Emergency Department Work Phone: Start: 06-09-2025 Non-patient / Non-visit Dr. Analy Narayanan MD -[facility] Work Phone: Start: 06-09-2025 ambulatory Vladimir Sears Facility:[facility] Start: 06-09-2025 Non-patient / Non-visit Dr. Pratik GARZA -[facility] Start: 06-09-2025 ambulatory Geo Garza Facili ty:[facility] Start: 06-09-2025 Non-patient / Non-visit Dr. Guillermo hernández MD -[facility] Start: 06-08-2025 End: 06-09-2025 ambulatory Geo Garza Facility:[facility] Start: 06-08-2025 End: 06-09-2025 Evaluation and management of inpatient Dr. Geo Garza DO -Progressive Care Unit Work Phone: Start: 06-08-2025 End: 06-09-[address] Ja Cooley MD Work Phone: -[facility] Start: 05-26-2025 End: 05-26-[address] Ja Cooley MD Work Phone: -[facility] Start: 05-26-2025 End: 05-26-[address] Natasha Gregory MD -[facility] Start: 05-26-2025 End: 05-26-2025 ambulatory Ja Cooley Facility:[facility] Start: 05-14-2025 End: 05-14-2025 ambulatory [...] ambulatory Dr. Ja Cooley MD Work Phone: [facility] Work Phone: Start: 05-09-2025 End: 05-09-[address] Vick Santo MD -Radiology [facility] Work Phone: Start: 05-09-2025 End: 05-09-2025 ambulatory Vick Santo Facility:[facility] Start: 05-07-[address] Olivier Santo MD -Speech Therapy Work Phone: Start: 04-13-2025 End: 04-13-2025 Emergency department patient visit Chetan Powell MD Work Phone: [facility] Comment on above: Facial laceration, i nitial encounter (Primary Dx); Fall, initial encounter; Open fracture of nasal bone, initial encounter Start: 04-09-2025 End: 04-09-2025 Emergency department patient visit Dr. Ja Cooley MD Work Phone: -Emergency Department Work Phone: Start: 04-03-2025 End: 04-03-[address] Ja Cooley MD -Laboratory [facility] Start: 04-03-2025 End: 04-03-2025 ambulatory NATASHA GREGORY MD Facility:[facility] Start: 04-03-2025 End: 04-03-2025 ambulatory Ja Cooley Facility:[facility] Start: 04-01-[address] Olivier Santo MD -Speech Therapy Work Phone: Start: 03-26-[address] Olivier Santo MD -Speech Therapy Work Phone: Start: 03-24-2025 End: 03-24-[address] Ja Cooley MD Work Phone: [facility] Work Phone: Start: 03-24-2025 End: 03-24-[address] Jose Perez MD -[facility] Work Phone: Start: 03-24-2025 End: 03-24-2025 ambulatory Ja Cooley Facility:[facility] Start: 03-20-2025 End: 03-20-[address] Vick Santo MD -[facility] Work Phone: Start: 03-20-2025 End: 03-20-2025 ambulatory Vick Santo Facility:[facility] Start: 03-03-2025 End: 03-03-[address] Ja Cooley MD Work Phone: [facility] Work Phone: Start: 03-03-2025 End: 03-03-[address] Jose Perez MD -[facility] Start: 03-03-2025 End: 03-03-2025 ambulatory Ja Cooley Facility:[facility] Start: 02-25-[address] Olivier Santo MD -Speech Therapy Work Phone: Start: 02-20-2025 End: 02-20-[address] Ja Cooley MD Work Phone: [facility] Work Phone: Start: 02-20-2025 End: 02-20-[address] Natasha Gregory MD -[facility] Start: 02-20-2025 End: 02-20-2025 ambulatory Ja Cooley Facility:[facility] Start: 02-14-2025 End: 02-14-2025 Emergency department patient visit Dr. Ja Cooley MD Work Phone: -Emergency Department Work Phone: Start: 02-06-2025 End: 02-06-[address] Vick Santo MD -[facility] Work Phone: Start: 02-06-2025 End: 02-06-2025 ambulatory Vick Santo Facility:[facility] Start: 01-21-2025 End: 01-21-[address] Ja Cooley MD Work Phone: [facility] Work Phone: Start: 01-21-2025 End: 01-21-[address] Ja Cooley MD -Radiology, [place] Work Phone: Start: 01-21-2025 End: 01-21-2025 ambulatory Ja Cooley Facility:[facility] Start: 12-10-2024 End: 12-10-[address] Vick Santo MD -[facility] Work Phone: Start: 12-10-2024 End: 12-10-2024 ambulatory Ja Cooley Facility:[facility] Start: 12-10-2024 End: 12-10-2024 ambulatory Ja Cooley Facility:[facility] Start: 12-05-2024 End: 12-05-2024 Emergency department patient visit Dr. Estuardo Mccormack DO -Emergency Department Work Phone: Start: 12-04-2024 End: 12-04-[address] [facility] Start: 12-04-2024 End: 12-04-2024 ambulatory Ja Cooley Facility:[facility] Start: 12-02-2024 End: 12-02-[address] Jose Perez MD -Radiology, [place] Work Phone: Start: 12-02-2024 End: 12-02-2024 ambulatory Ja Cooley Facility:[facility] Start: 10-28-2024 End: 10-28-[address] [facility] Work Phone: Start: 10-28-2024 End: 10-28-2024 ambulatory Ja Cooley Facility:[facility] Start: 10-12-2024 End: 10-12-2024 Emergency department patient visit Dr. Osman Farooq MD -Emergency Department Work Phone: Start: 09-27-2024 End: 09-27-2024 ambulatory Ja Cooley Facility:[facility] Start: 09-20-2024 End: 09-20-2024 ambulatory [facility] Facility:[facility] Start: 09-02-2024 End: 09-02-2024 ambulatory [facility] Facility:[facility] Start: 09-02-2024 End: 09-02-2024 ambulatory [facility] Facility:[facility] Start: 03-25-2024 End: 03-25-[address] Ja Cooley Work Phone: [facility] Work Phone: Start: 03-25-2024 End: 03-25-[address] [facility] Work Phone: Start: 03-25-2024 End: 03-25-[address] Ja Cooley Work Phone: [facility] Work Phone: Start: 02-27-2024 End: 02-27-[address] Ja Cooley Work Phone: [facility] Work Phone: Start: 02-27-2024 End: 02-27-[address] Ja Cooley Work Phone: [facility] Start: 01-30-2024 End: 01-30-[address] Ja Cooley Work Phone: [facility] Work Phone: Start: 01-30-2024 End: 01-30-[address] Ja Cooley Work Phone: [facility] Work Phone: Start: 12-26-2023 End: 12-26-[address] Ja Cooley Work Phone: [facility] Work Phone: Start: 12-26-2023 End: 12-26-[address] Ja Cooley Work Phone: [facility] Work Phone: Start: 12-15-2023 End: 12-15-[address] Ja Cooley Work Phone: [facility] Work Phone: Start: 12-15-2023 End: 12-15-[address] Ja Cooley Work Phone: [facility] Work Phone: Start: 11-23-2023 End: 11-23-[address] Ja Cooley Work Phone: [facility] Start: 11-23-2023 End: 11-23-[address] Ja Cooley Work Phone: [facility] Work Phone: Start: 11-22-2023 End: 11-22-[address] Ja Cooley Work Phone: [facility] Work Phone: Start: 11-22-2023 End: 11-22-[address] Ja Cooley Work Phone: [facility] Work Phone: Start: 10-31-2023 End: 10-31-[address] Ja Cooley Work Phone: [facility] Work Phone: Start: 10-31-2023 End: 10-31-[address] Ja Cooley Work Phone: [facility] Start: 09-07-2023 End: 09-07-[address] Ja Cooley Work Phone: [facility] Work Phone: Start: 08-07-2023 End: 08-07-[address] Ja Cooley Work Phone: [facility] Work Phone: Start: 08-03-2023 End: 08-03-[address] Ja Cooley Work Phone: [facility] Work Phone: Start: 06-21-2023 Non-patient / Non-visit Dr. Rimma Cooley Work Phone: [facility] Start: 06-21-2023 End: 06-21-[address] Ja Cooley Work Phone: [facility] Work Phone: Start: 06-21-2023 End: 06-21-[address] Ja Cooley Work Phone: [facility]-Pulmonary Services/Neurology Work Phone: Start: 05-18-2023 End: 05-18-[address] Ja Cooley Work Phone: [facility] Work Phone: Start: 05-18-2023 End: 05-18-[address] Ja Cooley Work Phone: [facility] Work Phone: Start: 05-09-2023 End: 05-09-[address] Ja Cooley Work Phone: [facility] Work Phone: Start: 05-09-2023 End: 05-09-[address] Ja Cooley Work Phone: [facility] Start: 05-02-2023 End: 05-02-[address] Ja Cooley Work Phone: [facility] Work Phone: Start: 05-02-2023 End: 05-02-[address] Ja Cooley Work Phone: [facility]-Physical Therapy Work Phone: Start: 05-02-[address] Ja Cooley Work Phone: [facility]-Physical Therapy Start: 05-01-2023 End: 05-01-[address] Ja Cooley Work Phone: [facility] Work Phone: Start: 05-01-2023 End: 05-01-[address] Ja Cooley Work Phone: [facility] Start: 04-12-2023 End: 04-12-[address] Ja Cooley Work Phone: [facility] Start: 04-11-2023 End: 04-11-[address] Ja Cooley Work Phone: [facility] Neurology Start: 02-21-2023 End: 02-21-2023 ambulatory [facility] Work Phone: Start: 02-21-2023 End: 02-21-2023 Patient encounter procedure [facility] Start: 02-14-2023 Telephone encounter Jaylyn peck MD Work Phone: Neurology Comment on above: Patient Update (Incr eased falls, aggression) Start: 02-11-2023 End: 02-11-2023 Emergency department patient visit [facility]-Emergency Department Start: 01-10-2023 Telephone encounter Jaylyn peck MD Work Phone: Neurology Comment on above: Patient Update Start: 01-04-2023 End: 01-04-2023 ambulatory [facility] Work Phone: Start: 01-04-2023 End: 01-04-2023 Patient encounter procedure [facility] Start: 12-12-2022 End: 12-12-2022 ambulatory Gary Ruiz APRN.GENERAL PARTNER Work Phone: Neurology Comment on above: TAMULOSIN Start: 12-12-2022 End: 12-12-2022 Office outpatient new 20 minutes Gary Ruiz APRN.GENERAL PARTNER Work Phone: Neurology Comment on above: Parkinsonism, unspec ified Parkinsonism type (HCC) (Primary Dx); Orthostatic hypotension; Anxiety Start: 10-10-2022 Telephone encounter Jaylyn peck MD Work Phone: Neurology Comment on above: Patient Update (Incr eased shaking in AM ) Start: 10-04-2022 End: 10-04-2022 ambulatory [facility] Facility:[facility] Start: 10-04-2022 End: 10-04-2022 ambulatory [facility] PT, DPT Work Phone: [facility] Outpatient Physical Therapy Comment on above: Parkinsonism, unspec ified Parkinsonism type (HCC) (Primary Dx); Gait instability; Leg weakness, bilateral; Imbalance Start: 09-16-2022 End: 09-16-2022 ambulatory [facility] Work Phone: Start: 09-16-2022 End: 09-16-2022 Patient encounter procedure [facility] Start: 09-15-2022 End: 09-15-2022 ambulatory Jaylyn Nieves MD Work Phone: Neurology Comment on above: CYMBALTA Start: 09-12-2022 Telephone encounter Jaylyn peck MD Work Phone: [facility] Comment on above: Other (PD Symptoms W orsening) Start: 09-02-2022 End: 09-02-2022 [facility] Aleida Ramirez MD Work Phone: Neurological [facility] Comment on above: MELISSA (generalized anx iety disorder) (Primary Dx); Depression, unspecified depression type; Parkinsonism, unspecified Parkinsonism type (HCC) Start: 08-25-2022 End: 08-25-2022 ambulatory [facility] Facility:[facility] Start: 08-25-2022 End: 08-25-2022 ambulatory Willis Ryder PT, DPT Work Phone: [facility] Physical Therapy Comment on above: Parkinsonism, unspec ified Parkinsonism type (HCC) (Primary Dx); Gait instability; Leg weakness, bilateral; Imbalance Start: 08-11-2022 End: 08-11-2022 ambulatory [facility] Facility:[facility] Start: 08-08-2022 ambulatory Jaylyn jennings MD Work Phone: Neurology Comment on above: Dr. Suzie Nieves at 07/21 2:20 PM Start: 08-04-2022 End: 08-04-2022 ambulatory JAYLYN NIEVES Facility:[facility] Start: 08-04-2022 End: 08-04-2022 Patient encounter procedure Jaylyn Nieves MD Work Phone: Neurology Comment on above: Parkinsonism, unspec ified Parkinsonism type (HCC) (Primary Dx); Depression, unspecified depression type; Anxiety; Orthostatic lightheadedness; Dysphagia, unspecified type Start: 08-01-2022 End: 08-01-[address] Patricia Mcgowan Work Phone: [facility] Work Phone: Start: 08-01-2022 End: 08-01-[address] Patricia Mcgowan Work Phone: [facility]-Laboratory Start: 07-21-2022 Telephone encounter Jaylyn peck MD Work Phone: Neurology Comment on above: Appointment (Earlier appointment request d/t worsening symptoms ) Start: 06-21-2022 End: 06-21-[address] Patricia Mcgowan Work Phone: [facility] Start: 06-20-2022 End: 06-20-[address] Patricia Mcgowan Work Phone: [facility] Start: 05-18-2022 Refill Jaylyn jennings MD Work Phone: [facility]rological [facility] Comment on above: Refill Request Start: 05-16-2022 Non-patient / Non-visit Dr. Martín Mcgowan Work Phone: [facility] Start: 05-16-2022 End: 05-16-[address] Patricia Mcgowan Work Phone: [facility]-Cardiovascul ar Services Start: 04-25-2022 End: 04-25-[address] Patricia Mcgowan Work Phone: [facility] Start: 04-12-2022 End: 04-12-[address] Patricia Mcgowan Work Phone: [facility] Start: 04-07-2022 End: 04-07-2022 [facility] Start: 03-29-2022 End: 03-29-2022 ambulatory Maine Medel PT, DPT Work Phone: [facility] Outpatient Physical Therapy Comment on above: Parkinson disease (H CC) (Primary Dx) Start: 03-29-2022 End: 03-29-2022 Patient encounter procedure Michelle Ro CCC-[facility] Work Phone: [facility] Outpatient Speech Therapy Comment on above: Parkinsonism, unspec ified Parkinsonism type (HCC) (Primary Dx); Dysphagia, oropharyngeal phase; Dysarthria Gait instability (Pr imary Dx); Parkinsonism, unspecified Parkinsonism type (HCC); Dysphasia; Oropharyngeal dysphagia; Decreased activities of daily living (ADL) Start: 03-23-2022 Telephone encounter Jaylyn peck MD Work Phone: Neurology Comment on above: Upcoming Appointment (Pre-rooming phone call) Start: 03-17-2022 End: 03-17-2022 ambulatory PATRICIA MCGOWAN Facility:[facility] Start: 03-17-2022 End: 03-17-2022 Patient encounter procedure Jaylyn Nieves MD Work Phone: Neurology Comment on above: Parkinsonism, unspec ified Parkinsonism type (HCC) (Primary Dx); Essential tremor; Dysphagia, unspecified type; Gait instability Start: 03-10-2022 End: 03-10-2022 Patient encounter procedure [facility] Start: 02-10-2022 Documentation procedure Jaspreet Ríos [facility], Neuroscience Start: 01-28-2022 End: 01-28-2022 Emergency department patient visit [facility]-Emergency Department Start: 12-31-2021 End: 12-31-2021 Patient encounter procedure [facility] Start: 12-21-2021 End: 12-21-[address] [facility] Start: 12-21-2021 End: 12-21-2021 Office outpatient visit 15 minutes Barb Morton MD Work Phone: [facility] Physician [facility], Neuroscience Comment on above: Parkinson's disease (HCC) (Primary Dx) Start: 12-15-2021 End: 12-16-2021 ambulatory PATRICIA MCGOWAN [facility] Start: 12-15-2021 End: 12-16-[address] [facility] Start: 12-05-[address] [facility] Start: 11-18-2021 ambulatory PATRICIA MCGOWAN [facility] Start: 11-15-2021 Patient encounter procedure [facility] Start: 11-09-2021 Refill Jaspreet Qureshi MA [facility], Neuroscience Start: 11-05-2021 Documentation procedure Jim Bardford RN [facility], Neuroscience Start: 11-03-2021 Documentation procedure Jaspreet Ríos [facility], Neuroscience Start: 11-01-2021 End: 11-02-2021 ambulatory BARB MORTON [facility] Start: 10-28-2021 End: 11-01-2021 ambulatory Barb Morton MD Work Phone: [facility] Comment on above: Tremor; Impaired mobility and activities of daily living; Impairment of balance Start: 10-05-2021 End: 10-05-2021 ambulatory PATRICIA MCGOWAN [facility] Start: 10-05-2021 End: 10-05-2021 Office outpatient visit 25 minutes Barb Morton MD Work Phone: [facility], Neuroscience Comment on above: Tremor (Primary Dx) Start: 09-27-2021 Transcribe Orders Patricia Mcgowan MD Work Phone: [facility], Neuroscience Comment on above: Tremor, essential (P rimary Dx) Start: 05-19-2021 End: 05-19-2021 Subsequent hospital visit by physician Nii Altman MD Work Phone: [facility] General Surgery Comment on above: Arrived Start: 05-11-2021 End: 05-11-2021 Patient encounter status Raeann Holland APRN - GENERAL PARTNER Work Phone: [facility] Start: 05-11-2021 End: 05-11-2021 Subsequent hospital visit by physician Raeann Holland APRN - GENERAL PARTNER Work Phone: [facility] Comment on above: Abnormal electrocard iogram (ECG) (EKG); Shortness of breath; Pre-op testing; Abnormal EKG Start: 05-05-2021 End: 05-05-2021 Patient encounter status Nii Altman MD Work Phone: [facility] Pre-Admit Testing Start: 05-05-2021 End: 05-05-2021 Subsequent hospital visit by physician Nii Altman MD Work Phone: [facility] Pre-Admit Testing Comment on above: Pre-op testing (Prim sophie Dx); Abnormal EKG; Shortness of breath Start: 04-12-2021 Patient encounter status [facility] Work Phone: Start: 08-14-2006 End: 08-14-2006 Patient encounter procedure Wyatt Noble Work Phone: [facility] Start: 08-14-2006 Results Only Wyatt Donaldson x Work Phone: [facility] Start: 02-03-2006 End: 02-03-2006 Patient encounter procedure Wyatt Noble Work Phone: [facility] Start: 02-03-2006 Results Only Wyatt Donaldson x Work Phone: [facility] Procedures Date Procedure Procedure Detail Performing Clinician Start: 07-12-[address] Ja Cooley MD Work Phone: Start: 07-12-2025 Urnls dip stick/tabl et reagent auto microscopy Dr. Ja Cooley MD Work Phone: Start: 07-12-2025 CT of head without contrast Dr. Ja Cooley MD Work Phone: Start: 07-07-2025 X-ray of knee, four or more views Dr[address] Ja Cooley MD Work Phone: Start: 07-07-2025 CT cervical spine wi thout contrast Dr. Ja Cooley MD Work Phone: Start: 07-07-2025 CT of head without contrast Dr. Ja Cooley MD Work Phone: Start: 07-05-2025 Urnls dip stick/tabl et reagent auto microscopy Dr. Ja Cooley MD Work Phone: Start: 07-05-[address] Ja Cooley MD Work Phone: Start: [...] 06-08-2025 CT of head without contrast Dr. aJ Cooley MD Work Phone: Start: 05-26-2025 Folic acid measureme nt, RBC Dr. Ja Cooley MD Work Phone: Comment on above: Performed at: [address] [id number] Director: Vj Garcia PhD, Phone: [phone] Start: 05-09-[address] Ja valle MD [...] 05-11-2021 ECHOCARDIOGRAM PHARMACOLOGICAL STRESS TEST Raeann Holland ONLINE MERCHANDISING COORDINATOR - GENERAL PARTNER Work Phone: Start: 05-05-2021 Antibody screen Nii Charlton MD Work Phone: Start: 05-05-2021 Blood count complete automated Raeann Holland ONLINE MERCHANDISING COORDINATOR - GENERAL PARTNER Work Phone: Start: 05-05-2021 Blood typing serologic abo Raeann Holland ONLINE MERCHANDISING COORDINATOR - GENERAL PARTNER Work Phone: Start: 05-05-2021 Ecg routine ecg w/le ast 12 lds w/i&r Raeann Holland ONLINE MERCHANDISING COORDINATOR - GENERAL PARTNER Work Phone: Start: 08-14-2006 CONVERTED SURGICAL PATHOLOGY Wyatt Noble Work Phone: Start: 02-03-2006 CONVERTED SURGICAL PATHOLOGY Wyatt Noble Work Phone: History of operative procedure on knee History of knee joint replacement Dr. Ja Cooley MD Work Phone: Plan of Treatment Date Care Activity Detail Author Start: 12-05-2034 DTaP/Tdap/Td Vaccines (4 - Td or Tdap) DTaP/Tdap/Td Vaccines (4 - Td or Tdap) [facility] Start: 01-25-2031 Tetanus vaccination Tetanus: Every 10yrs [facility] Start: 07-12-2025 [facility] Start: 07-12-2025 [facility] Start: 07-12-2025 Bacteria identified in Urine by Culture Urine Culture [facility] Start: 07-07-2025 [facility] Start: 07-05-2025 Urine culture Urine Culture [facility] Start: 07-05-2025 [facility] Start: 06-27-2025 Evaluation of diagnostic study results [facility] Start: 06-19-2025 [facility] Start: 06-19-2025 Simple repair f/e/e/n/l/m 2.5cm/< RPR F/E/E/N/L/M 2.5 CM/< [facility] Start: 06-12-2025 [facility] Start: 06-12-2025 [facility] Start: 06-09-2025 Patient discharge [facility] Start: 06-09-2025 Referral to service [facility] Start: 06-09-2025 Speech therapy assessment [facility] Start: 06-09-2025 Inhalation therapy procedure [facility] Start: 06-08-2025 Following clinical pathway protocol [facility] Start: 06-08-2025 Assessment of risk of venous thromboembolism [facility] Start: 06-08-2025 End: 06-08-2025 Care regimes management [facility] Start: 06-08-2025 Incentive spirometry [facility] Start: 06-08-2025 Insertion of catheter into peripheral vein [facility] Start: 06-08-2025 Measuring intake and output [facility] Start: 06-08-2025 End: 06-08-2025 Notification of physician [facility] Start: 06-08-2025 Oxygen therapy [facility] Start: 06-08-2025 Providing care according to standard [facility] Start: 06-08-2025 Provision of activity privileges [facility] Start: 06-08-2025 Referral to occupational therapist [facility] Start: 06-08-2025 Referral to service [facility] Start: 06-08-2025 End: 06-08-2025 [facility] Start: 06-08-2025 [facility] Start: 06-08-2025 Verification routine [facility] Start: 06-08-2025 Admission procedure [facility] Start: 06-08-2025 Hospital admission, emergency, from emergency room, medical nature [facility] Start: 06-08-2025 [facility] Start: 06-08-2025 [facility] Start: 05-11-2025 [facility] Start: 04-09-2025 Simple repair scalp/neck/ax/genit/trun k 2.5cm/< RPR S/N/AX/GEN/TRNK 2.5CM/< [facility] Start: 04-09-2025 [facility] Start: 03-24-2025 CT Chest WO contrast [facility] Start: 03-24-2025 CT of chest without contrast Chest without Contrast [facility] Start: 02-14-2025 [facility] Start: 01-04-2025 Patient referral [facility] Work Phone: Start: 12-11-2024 Patient referral [facility] Work Phone: Start: 12-05-2024 [facility] Start: 12-05-2024 Simple repair f/e/e/n/l/m 2.6cm-5.0 cm RPR F/E/E/N/L/M 2.6-5.0 CM [facility] Start: 11-11-2024 COVID-19 Vaccine ( season) COVID-19 Vaccine ( season) [facility] [employer] Start: 10-12-2024 Incentive spirometry [facility] Start: 10-12-2024 End: 10-12-2024 [facility] Start: 04-02-2024 Patient referral [facility] Work Phone: Start: 03-25-2024 Acetylcholine receptor blocking Ab [Presence] in Serum [facility] Start: 03-25-2024 Acetylcholine receptor modulating antibody measurement [facility] Start: 11-23-2023 Serum immunofixation [facility] Start: 11-23-2023 Urine immunofixation [facility] Start: 05-09-2023 [place] and lambda light chains [facility] Start: 05-09-2023 Thiamine measurement [facility] Start: 03-11-2023 Adult depression screening assessment DEPRESSION SCREENING [facility] Start: 11-20-2022 ADVANCE DIRECTIVE DISCUSSION ADVANCE DIRECTIVE DISCUSSION [facility] Start: 11-20-2022 DEPRESSION ASSESSMENT DEPRESSION ASSESSMENT [facility] Start: 07-21-2022 Influenza vaccination INFLUENZA (#1) [facility] Start: 05-05-2022 Creatinine measurement Creatinine monitoring [employer] Phone: Start: 05-05-2022 Diabetes: Estimated Glomerular Filtration Rate for Kidney [facility] Diabetes: Estimated Glomerular Filtration Rate for Kidney [facility] [employer] Start: 05-05-2022 Potassium monitoring Potassium monitoring [employer] Work Phone: Start: 12-21-2021 End: 12-21-2021 Telemedicine consultation with patient 12/21/2021 Telemedicine Neurology Barb Morton MD [address] [facility] [address] [place] [address] [facility], Neuroscience Start: 12-15-2021 End: 12-15-2021 Patient encounter procedure 12/15/2021 Appointment Radiology Barb Morton MD [address] [place] [address] [facility] Nuclear Medicine Start: 11-20-2021 ADVANCE DIRECTIVE DISCUSSION ADVANCE DIRECTIVE DISCUSSION [facility] Start: 11-20-2021 DEPRESSION ASSESSMENT DEPRESSION ASSESSMENT [facility] Start: 11-01-2021 End: 11-01-2021 Patient encounter procedure 11/01/2021 Appointment Radiology Barb Morton MD [address] [place] [address] [facility] [address] Start: 06-03-2021 End: 06-03-2021 Patient encounter procedure 06/03/2021 Office [place] [address] [place] [id number] [facility] Start: 05-19-2021 End: 05-19-2021 Patient encounter procedure 05/19/2021 Appointment General Surgery Nii Altman MD [address] [place] [address] [facility] General Surgery Start: 05-05-2021 End: 07-04-2021 ECHO Pharmacological Stress Test ECHO Pharmacological Stress Test Echocardiography Routine Pre-op testing Abnormal EKG Shortness of breath Expected: 05/05/2021 (Approximate), Expires: 07/04/2021 [facility] Work Phone: Comment on above: Expected: 05/05/2021 (Approximate), Expi res: 07/04/2021 Start: 07-21-2020 Influenza vaccination INFLUENZA (#1) [facility] Start: 05-12-2019 Annual Wellness Visit (AWV) Annual Wellness Visit (AWV) [employer] Work Phone: Start: 2009 ADVANCE DIRECTIVE DISCUSSION ADVANCE DIRECTIVE DISCUSSION [facility] Start: 2009 Fall risk assessment Falls Risk Assessment [facility] Start: 2009 Pneumococcal 65+ years Vaccine (1 of 1 - PPSV23) Pneumococcal 65+ years Vaccine (1 of 1 - PPSV23) [facility] Work Phone: Start: 2009 PNEUMOCOCCAL: 65+ (1 - PCV) PNEUMOCOCCAL: 65+ (1 - PCV) [facility] Start: 2009 PNEUMOVAX AGE 65 AND OVER WITH 5YR LOOKBACK (#1) PNEUMOVAX AGE 65 AND OVER WITH 5YR LOOKBACK (#1) [facility] Start: 1994 Shingles Vaccine (1 of 2) Shingles Vaccine (1 of 2) [facility] Work Phone: Start: 1994 SHINGRIX VACCINE (1 of 2) SHINGRIX VACCINE (1 of 2) [facility] Start: 1994 Tuberculosis screening COLORECTAL CANCER SCREENING,SEE MODIFIER [facility] Start: 1989 DIABETES SCREEN DIABETES SCREEN [facility] Start: 1979 LIPID SCREEN LIPID SCREEN [facility] Start: 1963 DTaP/Tdap/Td vaccine (1 - Tdap) DTaP/Tdap/Td vaccine (1 - Tdap) [facility] Work Phone: Start: 1963 Urine microalbumin profile DTAP,TDAP,TD (1 - Tdap) [facility] Start: 1962 Diabetes: Urine Albumin-Creatinine Ratio for Kidney Health Diabetes: Urine Albumin-Creatinine Ratio for Kidney Health [facility] Start: 1962 HEPATITIS C SCREENING HEPATITIS C SCREENING [facility] Start: 1962 Hepatitis C screening Hepatitis C Screening [facility] Start: 1956 COVID-19 Vaccine (1) COVID-19 Vaccine (1) [facility] Work Phone: Start: 1956 Depression screening using PHQ-9 (Patient Health Questionnaire 9) score [facility] Start: 1954 Diabetic foot examination Foot Exam [facility] Start: 1954 Lipid panel Lipid screen [facility] Work Phone: Start: 1954 Microalbumin measurement, urine, quantitative Urine Microalbumin [facility] Start: 1954 Ophthalmic examination and evaluation Ophthalmology Exam [facility] Start: 1947 History and physical examination, annual for health maintenance Wellness Visit [facility] Start: 1944 Hemoglobin A1c measurement A1C [facility] Start: 1944 Hepatitis C screening Hepatitis C screen [facility] Work Phone: Start: 1945 Medicare Annual Wellness (AWV) Medicare Annual Wellness (AWV) [facility] 24 Hour ECG [facility] Albumin [Moles/volum e] in Serum or Plasma [facility] Albumin/Glob[facility] Blood glucose - POCT [facility] Work Phone: Comment on above: As Needed until discontinued starting Cobalamin (Vitamin B 12) [Mass/volume] in Serum or Plasma [facility] End: 05-19-2021 Creatinine [Mass/volume] in Serum or Plasma Creatinine, serum Lab STAT One Time for 1 Occurrences starting 05/19/2021 until 05/19/2021 [employer] Work Phone: Comment on above: One Time for 1 Occurrences starting 04/22 until 05/19/2021 End: 10-05-2022 CT of head without contrast CT Head Or Brain Without Contrast Imaging Routine Tremor 1 Occurrences starting 10/05/2021 until 10/05/2022 [facility] Comment on above: 1 Occurrences starting 10/05/2021 until 10/05/2022 EKG 12 Lead [employer] Work Phone: Electrophoresis: [id number] [facility] Electrophoresis: aamir ma globulin [facility] Folate [Moles/volume ] in Serum or Plasma [facility] Folic acid measureme nt, RBC [facility] Globulin measurement [facility] IgA [Mass/volume] in Serum or Plasma [facility] IgG [Mass/volume] in Serum or Plasma [facility] IgM [Mass/volume] in Serum or Plasma [facility] End: 05-19-2021 Intermittent pulse oximetry Pulse Oximetry Spot Check Respiratory Care Routine One Time for 1 Occurrences starting 05/19/2021 until 05/19/2021 [employer] Work Phone: Comment on above: One Time for 1 Occurrences starting 04/22 until 05/19/2021 [place]/lambda light c winsome ratio [facility] Lambda light chains. free [Mass/volume] in Serum or Plasma [facility] MR Brain WO and W contrast IV [facility] MR Brain WO contrast [facility] MR Cervical spine [facility] MR Lumbar spine [facility] End: 05-11-2021 Nasal Cannula Oxygen Nasal Cannula Oxygen Respiratory Care Routine As Needed until discontinued starting 05/11/2021 [employer] Work Phone: Comment on above: As Needed until discontinued starting End: 10-05-2022 NM Brain Datscan SPECT CT Single Area Single Day NM Brain Datscan SPECT CT Single Area Single Day Imaging Routine Tremor 1 Occurrences starting 10/05/2021 until 10/05/2022 [facility] Work Phone: Comment on above: 1 Occurrences starting 10/05/2021 until 10/05/2022 Oxygen therapy [[facility] Data Set] Initiate Oxygen Therapy Protocol Respiratory Care Routine Daily until discontinued starting 05/19/2021 [employer] Work Phone: Comment on above: Daily until discontinued starting 2020 Patient Education [facility] Work Phone: Patient referral [facility] Work Phone: End: 05-19-2021 Potassium w/ Reflex to Magnesium Potassium w/ Reflex to Magnesium Lab Routine One Time for 1 Occurrences starting 05/19/2021 until 05/19/2021 [employer] Work Phone: Comment on above: One Time for 1 Occurrences starting 04/22 until 05/19/2021 End: 05-19-2021 , urine POCT , urine POCT Point of Care Testing Routine One Time for 1 Occurrences starting 05/19/2021 until 05/19/2021 [employer] Work Phone: Comment on above: One Time for 1 Occurrences starting 04/22 until 05/19/2021 Protein electrophore sis panel - Serum or Plasma [facility] End: 05-19-2021 Protime-INR Protime-INR Lab STAT One Time for 1 Occurrences starting 05/19/2021 until 05/19/2021 [employer] Work Phone: Comment on above: One Time for 1 Occurrences starting 04/22 until 05/19/2021 PT PLAN OF CARE CERTIFICATION PT PLAN OF CARE CERTIFICATION Procedures Routine Parkinson disease (HCC) Ordered: 03/29/2022 [facility] Work Phone: Comment on above: Ordered: 03/29/2022 Serum immunofixation [facility] SPEECH PLAN OF CARE CERTIFICATION SPEECH PLAN OF CARE CERTIFICATION Procedures Routine Parkinsonism, unspecified Parkinsonism type (HCC) Dysphagia, oropharyngeal phase Dysarthria Ordered: 03/29/2022 [facility] Work Phone: Comment on above: Ordered: 03/29/2022 Spirometry panel Incentive mariann metry Respiratory Care Routine Q1H PRN until discontinued starting 05/19/2021 [facility] Work Phone: Comment on above: Q1H PRN until discontinued starting 04/22 Troponin T.cardiac [Mass/volume] in Serum or Plasma by High sensitivity method [facility] Urine culture [facility] Urine immunofixation [facility] Urine kappa light ch ain measurement [facility] Immunizations Immunization Date Immunization Notes Care Provider Laureen gordon 12-05-2024 tetanus toxoid, redu aman diphtheria toxoid, and acellular pertussis vaccine, adsorbed Dr. Ja Cooley MD Work Phone: [facility] Payers Date Payer Category Payer Private Health Insurance [facility] [id number] 2025 Unknown [id number] 2024 Self-pay [id number] 2021 Unknown [facility] [id number] 2021-Present [phone] [address] [place] [address] [id number] .7.3.031303.315 2021 Unknown [id number] 2021 Unknown [id number]. 1.13.385.2 .7.3.332638.315 2017 [facility] ( and others) [id number] 1.2.840.207882.1.13.239.2 .7.3.491529.315 2009 Medicare [id number] 1.2.840.696346.1.13.385.2 .7.3.588515.315 2009 Medicare 1.2.840.938241. 1.13.385.2 .7.3.992760.315 2009 Medicare [id number] 1.2.840.928227.1.13.239.2 .7.3.766382.315 2002 Self-pay [id number] 1.2.840.897793.1.13.159.2 .7.3.472377.315 1944 Unknown [id number] 2.16.840.1.687956.3.579.2 .900 1944 Unknown [id number] 2.16.840.1.235814.3.579.2 .900 1944 Unknown [id number] 2.16.840.1.138335.3.579.2 .900 1944 Unknown [id number] 2.16.840.1.709600.3.579.2 .900 1944 Unknown [id number] 2.16.840.1.499669.3.579.2 .900 1944 Unknown [id number] 2.16.840.1.351343.3.579.2 .900 1944 Unknown [id number] 2.16.840.1.169989.3.579.2 .900 1944 Unknown [id number] 2.16.840.1.629548.3.579.2 .900 1944 Unknown [id number] 2.16.840.1.429010.3.579.2 .900 1944 Unknown [id number] 2.16.840.1.940186.3.579.2 .627 1944 Unknown [id number] 2.16.840.1.764080.3.579.2 .627 Unknown [id number] 2.16.840.1.673891.3.579.2 .462 Unknown [id number] 2.16.840.1.985559.3.579.2 .462 Unknown [id number] 2.16.840.1.628686.3.579.2 .462 Unknown [id number] 2.16.840.1.435233.3.579.2 .462 Unknown [id number] 2.16.840.1.715303.3.579.2 .462 Unknown [id number] 2.16.840.1.837316.3.579.2 .462 Unknown [id number] 2.16.840.1.588721.3.579.2 .462 Unknown [id number] 2.16.840.1.302456.3.579.2 .462 Unknown [id number] 2.16.840.1.780260.3.579.2 .462 Unknown [id number] 2.16.840.1.518255.3.579.2 .462 Unknown [id number] 2.16.840.1.737326.3.579.2 .462 Unknown [id number] 2.16.840.1.209800.3.579.2 .462 Unknown [id number] 2.16.840.1.060733.3.579.2 .462 Unknown [id number] 2.16.840.1.358227.3.579.2 .462 Unknown [id number] 2.16.840.1.458764.3.579.2 .462 Unknown [id number] 2.16.840.1.281151.3.579.2 .462 Unknown [id number] 2.16.840.1.026307.3.579.2 .462 Unknown [id number] 2.16.840.1.490633.3.579.2 .462 Unknown [id number] 2.16840.1.734225.3.579.2 .462 Unknown [id number] 2.16840.1.684628.3.579.2 .462 Unknown [id number] 2.840.1.572259.3.579.2 .462 Unknown [id number] 2.840.1.949103.3.579.2 .462 Unknown [id number] 2.840.1.088994.3.579.2 .462 Unknown [id number] 2.840.1.782258.3.579.2 .462 Unknown [id number] 2.840.1.191175.3.579.2 .462 Unknown [id number] 2.840.1.238901.3.579.2 .462 Unknown [id number] 2.16840.1.906142.3.579.2 .462 Unknown [id number] 2.840.1.952407.3.579.2 .462 Unknown [id number] 2.16840.1.641855.3.579.2 .462 Unknown [id number] 2.16840.1.333467.3.579.2 .462 Unknown [id number] 2.16840.1.939052.3.579.2 .462 Unknown [id number] 2.16840.1.039903.3.579.2 .462 Unknown [id number] 2.16840.1.215294.3.579.2 .462 Unknown [id number] 2.16.840.1.644298.3.579.2 .462 Unknown [id number] 2.16.840.1.947493.3.579.2 .462 Unknown [id number] 2.16.840.1.102949.3.579.2 .462 Unknown [id number] 2.16.840.1.937236.3.579.2 .462 Unknown [id number] 2.16.840.1.878651.3.579.2 .462 Social History Date Type Detail Facility Tobacco smoking stat [facility] Unknown if ever smoked [facility] Start: 1945 Sex Assigned At Not on file [facility] Start: 05-05-2021 End: 07-12-2025 Tobacco smoking status [facility] Former smoker [facility] Work Phone: Start: 11-20-1947 End: 11-20-1998 History of tobacco use Current smoker [facility] Start: 11-20-1947 End: 11-20-1998 History of tobacco use Cigarette Smoker [facility] Start: 05-05-2021 End: 11-08-2022 Cigarettes smoked current (pack per day) - Reported [facility] Work Phone: Start: 05-05-2021 End: 08-04-2022 Tobacco use and exposure Never used [facility] Start: 05-05-2021 End: 11-08-2022 Alcohol intake Current non-drinker of alcohol (finding) [facility] Work Phone: Start: 11-15-2021 End: 09-02-2022 Exposure to SARS-CoV-2 (event) Not sure [facility] Start: 01-28-2022 End: 08-07-2023 Tobacco smoking status MTIS Tobacco smoking consumption unknown [facility] Start: 10-05-2021 End: 12-12-2022 Alcohol intake Lifetime non-drinker (finding) [facility] Start: 1945 Sex Assigned At Male [facility] Start: 08-25-2021 History SDOH Alcohol Frequency 1 [facility] Start: 07-25-2022 End: 08-04-2022 Exposure to SARS-CoV-2 (event) Yes [facility] Start: 06-20-2022 End: 02-03-2025 Sex Male (finding) [facility] Start: 11-08-2022 End: 04-13-2025 Alcohol Use Disorder Identification Test - Consumption [AUDIT-C] [facility] How often to you hav e a drink containing alcohol? Never [facility] How many standard dr inks containing alcohol do you have on a typical day? Patient does not drink [facility] Medical Equipment Procedure Code Equipment Code Equipment Origin al Text Equipment Identifier Dates [id number] Start: 01-15-2018 SURE COMFORT PEN NEEDLES 31G X 8 MM MISC [id number] Start: 12-28-2017 blood sugar diagnostic (FreeStyle Lite Strips) strips [id number] Start: 01-15-2018 pen needle, diab etic 31 gauge x 5/16 Ndle [id number] Start: 12-28-2017 Goals Date Patient Goal Desired Activity /State Functional Status Date Assessment Result Facility 06-09-2025 Functional status Ambulates [facility] Work Phone: 04-13-2025 Total score [AUDIT-C] 0 04/13/20 8:48 PM EDT Cielo Valverde, RN [facility] Mental Status Date Assessment Result Facility 06-12-2025 Cognitive function Voice/Name [facility] Work Phone: 06-09-2025 Cognitive function Speech Pattern Delayed [facility] Work Phone: 05-11-2025 Cognitive function Level Of Cons ciousness Awake;Alert;Appropriate;Follow s Commands [facility] Work Phone: 10-12-2024 Cognitive function Awake;Alert;A ppropriate;Follow s Commands [facility] Work Phone: 01-28-2022 Cognitive function Level Of Cons ciousness Awake;Alert;Appropriate;Follow s Commands [facility] Work Phone: Clinical Notes 05-05-2021 to 07-12-2025 Note Date & Type Note Facility 07-12-2025 Discharge summary [facility] 07-12-2025 Radiology Diagnostic study note [facility] Imaging Services [address] [place] [address] Brain/Head without Contrast MR#: [id number] Acct: [id number] Name: LUIS ARMANDO GRIFFITH Rep #: [id number] : 1945 M 79 From: Pet er Peer PCP: Dr. Ja Cooley MD Status: RE G ER Study:Brain/Head without Contrast Date of Exa m: 07/12/25 Exam# [id number] Ordering Dr: Surya Dumont MD PROCEDURE: BRAIN/HEAD WITHOUT CONTRAST 07/12/2025 REASON FOR EXAM: TRAUMA Initial encounter. TECHNIQUE: BRAIN/HEAD WITHOUT CONTRAST Coronal and Sagittal reconstruction series were provided. One or more dose reduction techniques were used (e.g., Automated exposure control, adjustment of the mA and/or kV according to patient size, use of iterative reconstruction technique. RADIATION DOSE SUMMARY: CTDlvol: 44.99 mGy DLP: 863.60 mGycm COMPARISON: CT brain July 07, 2025 June 19, 2025 June 12, 2025 FINDINGS: Brain: No intra-axial or extra-axial hemorrhage. No mass, mass effect or midline shift CSF Spaces: Ventricles and sulci are age-appropriate Sinuses/Mastoids: No bloody effusions. No sinus disease. Bones: No fracture identified. CT/Brain/Head without Contrast IMPRESSION: No acute intra calvarial injury. No skull fracture identified. Reading Location: [facility] CC: Dr. Surya Dumont MD; Dr. Ja Cooley MD ~ Corporate Communications Manager: Signed [facility] 07-12-2025 Discharge summary Note Date/Time July 12, 2025 8:30pm [facility] Medical Records Department [address] [place] [address] Emergency Department Summary 07/12/25 MR#: [id number] Acct: [id number] Name: LUIS ARMANDO GRIFFITH Rep #:[id number] : 1945 79 From: Surya Dumont MD PCP: Dr. Ja Cooley MD Status:RE G ER Location: ED HPI History of Present Illness Chief Complaint: Head Injury Narrative Narrative: 79-year-old male presents from [place] via EMS with fall with injury to back of head. He has past medical history of Parkinson disease and has frequent falls. He also has dementia. Today, he fell again and hit the back of his head. No loss of consciousness. He does not take blood thinners. States he does not really feel well. He denies fevers or chills, no nausea or vomiting, but his daughter does state that the nurses requested a urinalysis and culture and sensitivities. He presents because of the fall with injury to the back of his head. [facility] Medical History Hard of hearing Facial [...] mL) subcutaneous pen (Toujeo Max U-300 SoloStar) albuterol sulfate 90 mcg/actuation 2 inh inhalation Q6 H PRN shortness 06/08/25 Unknown History aerosol inhaler of breath or wheezing aspirin 81 mg tablet,delayed 81 mg PO QHS heart health 06/08/25 Unknown History release (Adult Aspirin Regimen) budesonide 1 mg/2 mL suspension 1 mg inhalation Q6H SO B 06/08/25 Unknown History for nebulization (Pulmicort) insulin lispro 100 unit/mL See Protocol subcut 5 Unknown History subcutaneous pen (Humalog KwikPen (U-100) Insulin) ropinirole 1 mg tablet 1 mg PO TID #21 tabs 5 Unknown Rx carbidopa 25 mg-levodopa 100 mg 2 tab PO 4X/DAY angel sons #720 06/29/25 Unknown Rx tablet tabs sertraline 50 mg tablet 50 mg PO QAM #30 tabs Unknown Rx doxepin 25 mg capsule 25 mg PO QHS nerve pain #90 caps 07/11/25 Unknown Rx propranolol 60 mg capsule,24 60 mg PO QHS blood pressu re #90 07/11/25 Unknown Rx hr,extended release caps Allergy/AdvReac Type Severity Reaction Status Date / Time metoclopramide (From Reglan) Allergy Severe HYPER Verified 07/12/25 18:03 Family History Father Leukemia Surgical History History of total left knee replacement (TKR) History of left tennis elbow Hx of spinal fusion History of skin cancer Social History household members: spouse housing: residential Smoking Status: Former smoker alcohol intake: never substance use type: does not use ROS ROS ED ROS Narrative Review of systems positive for mild headache status post fall after hitting the back of his head. No neck pain. Denies fever or chills, no nausea or vomiting. No dysuria or hematuria. Generalized malaise and not feeling well after fall. EXAM Physical Exam Narrative Exam Narrative: Afebrile. Vital signs noted. Nontoxic-appearing. Cardiovascular semination reveals regular rate and rhythm. Lungs clear to auscultation bilaterally. Abdomen soft and nontender with positive bowel sounds. Neurological examinationshows him to be awake, alert, answering questions appropriately. Multiple facial scars with improved bruising over previous. Const Vital Signs: 07/12/25 18:05 07/12/25 18:07 07/12/25 20:03 Temperature 98.4 F Temperature Source Oral Pulse Rate 98 101 H Respiratory Rate 18 17 Respiratory Effort Normal Respiratory Depth Normal Respiratory Pattern Normal Blood Pressure 158/72 H 167/91 H Blood Pressure Mean 100 116 Pulse Ox 96 93 Oxygen Delivery Method Room Air Room Air MDM MDM MDM Narrative Medical decision making narrative: Differential diagnosis includes but not limited to closed head injury versus intracranial hemorrhage. I will obtain a UA at the patient's daughter's requestand urine culture sent as well. Patient does not take blood thinners. He does have frequent falls from Parkinson's disease, but no recollection of the last visit, he does not want to be admitted afterwards. CT of the brain will be obtained to help rule out hemorrhage. I reviewed the radiology report of the CT of the brain and there is no acute hemorrhage, no acute process. Urinalysis obtained and reviewed and there is no evidence of infection with 0-5 WBCs and 0 bacteria. I do not feel antibiotics are indicated. Urine culture is pending. I was approached by the patient's daughter who stated that his constant glucose monitor was reading high. BMP wasobtained and while his glucose is elevated to 56 he has a normal anion gap of 13with a BUN of 24 and creatinine 1.16. At this point in time, I feel he can be discharged to follow-up and take his nighttime diabetic medications. Return instructions to the emergency department were reviewed. Disposition is discharged home in stable condition. History & Record Review Discussion w/independent historian: Patient and Family (Daughter) Additional record(s) reviewed:: Prior ED visit (Frequent falls) Lab Data Attestation: I reviewed the patient's lab results. Labs: Laboratory Results - last 24 hr 07/12/25 07/12/25 18:50 19:30 Sodium 141 Potassium 4.0 Chloride 104 Carbon Dioxide 24.0 Anion Gap 13 BUN 24 H Creatinine 1.16 Estim Creat Clear Calc 63.51 Est GFR (MDRD) Non-Af 64 BUN/Creatinine Ratio 20.4 H Glucose 256 H Calcium 9.0 Urine Color Yellow Urine Clarity Clear Urine pH 6.0 Ur Specific [place] 1.020 Urine Protein 30 H Urine Glucose (UA) 1000 H Urine Ketones 5 H Urine Occult Blood 10 H Urine Nitrite Negative Urine Bilirubin Negative Urine Urobilinogen 1 H Ur Leukocyte Esterase Negative Urine RBC 0-5 SEEN Urine WBC 0-5 SEEN Ur Squamous Epith Cells 0 SEEN Urine Bacteria 0 SEEN Urine Mucus 0 SEEN Radiography Diagnostic Testing: Clinical Impression(s) from Imaging Studies Brain CT 07/12/25 18:32 IMPRESSION: No acute intra calvarial injury. No skull fracture identified. Reading Location: [facility] Discharge Plan Triage Chief Complaint: Head Injury ED Provider: Surya Dumont Dx/Rx/DC Orders Clinical Impression: Frequent falls, Parkinson's disease, Closed head injury, Hyperglycemia due to diabetes mellitus Instructions: Parkinson Disease- Home Safety, ED Diabetic Hyperglycemia, ED Head Injury (Adult), ED Fall Prevention Prescriptions: No Action pravastatin [...] mg tablet 5 mg PO DAILY ropinirole 1 mg tablet 1 mg PO TID Qty: 21 0RF carbidopa-levodopa 25-100 mg tablet 2 tab PO 4X/DAY Qty: 720 0RF sertraline 50 mg tablet 50 mg PO QAM Qty: 30 4RF insulin lispro [Humalog KwikPen Insulin] 100 unit/mL [...] release 24 hr 60 mg PO QHS Qty: 90 0RF doxepin 25 mg capsule 25 mg PO QHS Qty: 90 0RF Primary Care Provider: Ja Cooley Referrals: Ja Cooley MD [Primary Care Provider] - Activity Restrictions/Additional Instructions: Take your diabetic medications as previously directed. Tylenol or ibuprofen as needed for pain. Follow-up with your primary care provider. Return with new orworsening symptoms. Print Language: Zambian Disposition Disposition: Home, Self Care What to do if you have Problems For any increased pain, shortness of breath, bleeding, nausea or vomiting, chestpain, or any unexpected problems, contact your Primary Care Provider. Call [facility] ([phone]) or report to the closest Emergency Room. Call 911 if necessary. 07/12/252029 <Electronically signed by Surya Dumont MD> Cosigner Signature (if applicable): CC: Dr. Ja Cooley MD ~ Signed [facility] Work Phone: 1(323) 871-234008-18-2025 Radiology Diagnostic study note [facility] Imaging Services [address] [place] [address] [id number] Knee 4 or More Views MR#: [id number] Acct: [id number] Name: LUIS ARMANDO GRIFFITH Rep #: [id number] : 1945 M 79 From: Gwen Skinner MD PCP: Dr. Ja Cooley MD Status: RE ER Study:Knee 4 or More Views Date of Exam: 07/07/25 Exam# [id number] Ordering Dr: Chetan Deras MD PROCEDURE: KNEE [...] knee arthroplasty. Post operative changes. Reading Location: [place] [address] CC: Dr. Yadiel Deras MD; Dr. Ja Cooley MD ~ Corporate Communications Manager: Signed [facility]08-18-2025 Radiology Diagnostic study note [facility] Imaging Services [address] [place] [address] Spine Cervical without Contras MR#: [id number] Acct: [id number] Name: LUIS ARMANDO GRIFFITH Rep #: [id number] : 1945 M 79 From: Gwen Skinner MD PCP: Dr. Ja Cooley MD Status: RE G ER Study:Spine Cervical without Contras Date of Exam: 07/07/25 Exam# [id number] Ordering Dr: Chetan Deras MD PROCEDURE: SPINE [...] evidence of an acute abnormality. [facility] CC: Dr. Yadiel Deras MD; Dr. Ja Cooley MD ~ Corporate Communications Manager: Signed [facility]08-18-2025 Radiology Diagnostic study note [facility] Imaging Services [address] [place] [address] Brain/Head without Contrast MR#: [id number] Acct: [id number] Name: LUIS ARMANDO GRIFFITH Rep #: [id number] : 1945 M 79 From: Gwen Skinner MD PCP: Dr. Ja Cooley MD Status: RE G ER Study:Brain/Head without Contrast Date of Exa m: 07/07/25 Exam# [id number] Ordering Dr: Chetan Deras MD PROCEDURE: BRAIN/HEAD [...] other interval change is noted. Reading Location: [facility] CC: Dr. Yadiel Deras MD; Dr. Ja Cooley MD ~ Corporate Communications Manager: Signed [facility]07-31-2025 Discharge summary [facility] Medical Records Department [address] [place] [address] Emergency Department Summary 06/19/25 MR#: [id number] Acct: [id number] Name: LUIS ARMANDO GRIFFITH Rep #:[id number] : 1945 79 From: Surya Dumont MD PCP: Dr. Ja Cooley MD Status:RE G ER Location: ED HPI HPI - Fall History of Present Illness Chief Complaint: Fall Narrative Narrative: 79-year-old male past medical history of Parkinson's and frequent falls presentswith his daughter after fall in the shower. He is a resident of [place]. He has had frequent falls, at least for the last month. He sustained multiple hematomas and ecchymosis to his face. Tonight, when he fell, he romina tained a laceration just above his right eyebrow. No loss of consciousness. Denies other injuries. Tetanus immunization current according to daughter. [facility] Medical History Hard of hearing Facial [...] falls, positive forehead laceration above right eyebrow. Noloss of consciousness. No other injury. Previous ecchymosis and swelling to multiple areas on face. EXAM Physical Exam Narrative Exam Narrative: GCS 15. ABCs are intact. Inspection of the right forehead does show 2.3 cm laceration above the right eyebrow without active bleeding. PERRL, EOMI. Multiple ecchymosis and swelling to areas around the eyes and face from previousfalls. Neurological examination consistent with Parkinson's. Cardiovascu lar examination regular rate and rhythm. Lungs clear [...] Return instructions to the emergency department were chidi madden. I offered the patient oral analgesics here in the emergency department but he declined andwill take ggas-jvv-qxayryw medications at home. Disposition is discharged home in stable condition. History & Record Review Discussion w/independent historian: Patient and Family (Daughter, Sabrina) Radiography Diagnostic Testing: Clinical Impression(s) from Imaging Studies Brain CT 06/19/25 19:47 IMPRESSION: 1. No acute intracranial abnormality. 2. Moderate left frontal scalp hematoma/contusion. No calvarial fracture. 3. Sinus disease involving the right maxillary sinus and anterior ethmoids. Reading Location: [id number] Procedures Lacerations Right forehead just above eyebrow: [...] Days for suture removal Activity Restrictions/Additional Instructions: Lzqt-tdk-umdcnxe medications like Tylenol or ibuprofen as needed for pain. Havesutures removed in 5days. Look for signs of infection including fever, increased redness to area, drainage of pus from wound. Return with new or worsening symptoms. Print Language: Zambian Disposition Disposition: Home, Self Care What to do if you have Problems For any increased pain, shortness of breath, bleeding, nausea or vomiting, chestpain, or any unexpected problems, contact your Primary Care Provider. Call [facility] ([phone]) or report tothe closest Emergency Room. Call 911 if necessary. 06/19/252119 Cosigner Signature (if applicable): CC: Dr. Ja Cooley MD ~ Signed [facility]07-31-2025 Radiology Diagnostic study note [facility] Imaging Services [address] [place], [place] [address] Brain/Head without Contrast MR#: [id number] Acct: [id number] Name: LUIS ARMANDO GRIFFITH Rep #: [id number] : 1945 M 79 From: Raz Joiner MD PCP: Dr. Ja Cooley MD Status: RE ER Study:Brain/Head without Contrast Date of Exa m: 06/19/25 Exam# [id number] Ordering Dr: Surya Dumont MD PROCEDURE: BRAIN/HEAD [...] maxillary sinus and anterior ethmoids. Reading Location: [facility] CC: Dr. Surya Dumont MD; Dr. Ja Cooley MD ~ Corporate Communications Manager: Signed [facility]07-31-2025 Discharge summary Author Surya Dumont [facility] Note Date/Time June 19, 2025 9:20 pm [facility] Medical Records Department [address] [place] [address] Emergency Department Summary 06/19/25 MR#: [id number] Acct: [id number] Name: LUIS ARMANDO GRIFFITH Rep #:[id number] : 1945 79 From: Surya Dumont MD PCP: Dr. Ja Cooley MD Status:RE G ER Location: ED HPI HPI - Fall History of Present Illness Chief Complaint: Fall Narrative Narrative: 79-year-old male past medical history of Parkinson's and frequent falls presentswith his daughter after fall in the shower. He is a resident of [place]. He has had frequent falls, at least for the last month. He sustained multiple hematomas and ecchymosis to his face. Tonight, when he fell, he sustained a laceration just above his right eyebrow. No loss of consciousness. Denies other injuries. Tetanus immunization current according to daughter. [facility] Medical History Hard of hearing Facial [...] department but he declined and will take aljs-xnp-vpwrhqt medications at home. Disposition is discharged home in stable condition. History & Record Review Discussion w/independent historian: Patient and Family (Daughter, Sabrina) Radiography Diagnostic Testing: Clinical Impression(s) from Imaging Studies Brain CT 06/19/25 19:47 IMPRESSION: 1. No acute intracranial abnormality. 2. Moderate left frontal scalp hematoma/contusion. No calvarial fracture. 3. Sinus disease involving the right maxillary sinus and anterior ethmoids. Reading Location: [id number]-[id number] Procedures Lacerations Right forehead just above eyebrow: [...] Days for suture removal Activity Restrictions/Additional Instructions: Mdby-cjl-altobvb medications like Tylenol or ibuprofen as needed for pain. Havesutures removed in 5 days. Look for signs of infection including fever, increased redness to area, drainage of pus from wound. Return with new or worsening symptoms. Print Language: Zambian Disposition Disposition: Home, Self Care What to do if you have Problems For any increased pain, shortness of breath, bleeding, nausea or vomiting, chestpain, or any unexpected problems, contact your Primary Care Provider. Call [facility] ([phone]) or report to the closest Emergency Room. Call 911 if necessary. 06/19/252119 <Electronically signed by Surya Dumont MD> Cosigner Signature (if applicable): CC: Dr. Ja Cooley MD ~ Signed [facility] Work Phone: 1(798) 208-153607-24-2025 Discharge summary [facility] Medical Records Department [address] [place] [address] Emergency Department Summary 06/12/25 MR#: [id number] Acct: [id number] Name: LUIS ARMANDO GRIFFITH Rep #:[id number] [...] left. He is in assisted living at [place]. Daughter is at the bedside states he [...] insulin today which is normal for him. [facility] Medical History Hard of hearing Facial [...] understandable. Daughter states this ishis baseline speech [place] Coma Scale: document GCS findings Spontaneous Obeys [...] % (Auto) 54.7 Lymph % (Auto) 32.8 [place] % (Auto) 9.4 Eos % (Auto) 1.9 [...] Clarity Clear Urine pH 6.0 Ur Specific [place] 1.025 Urine Protein 15 H Urine Glucose [...] region with no underlying fracture. Reading Location: [facility] Cervical Spine CT 06/12/25 10:43 IMPRESSION: There is loss of the lordosis. There is grade 1 spondylolisthesis at C7-T1, 0.3 cm. There is loss of disc height from C 3-7. There is moderate bilateral foraminal narrowing from C3-6 secondary to bony hypertrophy. There is no visible acute traumatic injury. Reading [facility] Rhythm Strip Rhythm Strip: Sinus Rhythm Rate: [...] MD [Primary Care Provider] - Print Language: Zambian Disposition Disposition: Home, Self Care What to do if you have Problems For any increased pain, shortness of breath, bleeding, nausea or vomiting, chestpain, or any unexpected problems, contact your Primary Care Provider. Call [facility] ([phone]) or report tothe closest Emergency Room. Call 911 if necessary. 06/12/25 1410 Cosigner Signature (if applicable): CC: Dr. Ja Cooley MD ~ Signed [facility]07-24-2025 Discharge summary Author Maty Dial [facility] Note Date/Time June 12, 2025 2:10 pm [facility] Medical Records Department [address] [place] [address] Emergency Department Summary 06/12/25 MR#: [id number] Acct: [id number] Name: LUIS ARMANDO GRIFFITH Rep #:[id number] [...] left. He is in assisted living at [place]. Daughter is at the bedside states he [...] insulin today which is normal for him. [facility] Medical History Hard of hearing Facial [...] Daughter states this is his baseline speech [place] Coma Scale: document GCS [...] % (Auto) 54.7 Lymph % (Auto) 32.8 [place] % (Auto) 9.4 Eos % (Auto) 1.9 [...] Clarity Clear Urine pH 6.0 Ur Specific [place] 1.025 Urine Protein 15 H Urine Glucose [...] region with no underlying fracture. Reading Location: [facility] Cervical Spine CT 06/12/25 10:43 IMPRESSION: There is loss of the lordosis. There is grade 1 spondylolisthesis at C7-T1, 0.3 cm. There is loss of disc height from C 3-7. There is moderate bilateral foraminal narrowing from C3-6 secondary to bony hypertrophy. There is no visible acute traumatic injury. Reading Location: [facility] Rhythm Strip Rhythm Strip: Sinus Rhythm Rate: [...] MD [Primary Care Provider] - Print Language: Zambian Disposition Disposition: Home, Self Care What to do if you have Problems For any increased pain, shortness of breath, bleeding, nausea or vomiting, chestpain, or any unexpected problems, contact your Primary Care Provider. Call [facility] ([phone]) or report to the closest Emergency Room. Call 911 if necessary. 06/12/25 1410 <Electronically signed by Maty Dial DO> Cosigner Signature (if applicable): CC: Dr. Ja Cooley MD ~ Signed [facility] Work Phone: 1(246) 853-238807-24-2025 Radiology Diagnostic study note [facility] Imaging Services [address] [place] [address] [id number] Spine Cervical without Contras MR#: [id number] Acct: [id number] Name: LUIS ARMANDO GRIFFITH Rep #: [id number] : 1945 M 79 From: Tez Spencer MD PCP: Dr. Ja Cooley MD Status: AL E ER Study:Spine Cervical without Contras Date of Exam: 06/12/25 Exam# [id number] Ordering Dr: Lawrence Dial DO PROCEDURE: SPINE [...] no visible acute traumatic injury. Reading Location: [facility] CC: Dr. Maty Dial DO; Dr. Ja Cooley MD ~ Corporate Communications Manager: Signed [facility]07-24-2025 Radiology Diagnostic study note [facility] Imaging Services [address] [place], [place] [address] Brain/Head without Contrast MR#: [id number] Acct: [id number] Name: LUIS ARMANDO GRIFFITH Rep #: [id number] : 1945 M 79 From: Tez Spencer MD PCP: Dr. Ja Cooley MD Status: AL E ER Study:Brain/Head without Contrast Date of Exa m: 06/12/25 Exam# [id number] Ordering Dr: Lawrence Dial DO EXAM: NONCONTRAST [...] Dial DO; Dr. Ja Cooley MD ~ Corporate Communications Manager: Signed [facility]07-21-2025 Discharge summary [facility] Medical Records Department [address] [place] [address] Instructions for Home/Discharge Instructions 06/09/25 1610 MR#: [id number] Acct: [id number] Name: LUIS ARMANDO GRIFFITH Rep #:[id number] [...] MD; Dr. Daphnie Narayanan MD ~ Signed [facility]07-21-[facility] History and physical note Author Geo Reyes [facility] Note Date/Time June 09, 2025 6:04 am [facility] Medical Records Department [address] [place] [address] H&P Exam - Hospitalist 06/08/252109 MR#: [id number] Acct: [id number] Name: LUIS ARMANDO GRIFFITH Rep #:[id number] : 1945 79 From: Geo Marin DO PCP: Dr. Ja Cooley MD Status:AD M SANDHYA Location: [address] [facility] General Date of Admission: 06/08/25 Date of [...] on hydrocodone-acetaminophen prn QID who presents to [facility] ER complaining of syncope with collapse. Mr. [...] be less than 2 midnights. [facility] Medical History Parkinson's disease Right bundle branch [...] % (Auto) 51.9, Lymph % (Auto) 36.0, [place] % (Auto) 8.5, Eos % (Auto) 1.9, [...] Clarity Clear, Urine pH 6.0, Ur Specific [place] 1.020, Urine Protein 15 H, Urine Glucose [...] clinical evidence of acute sinusitis. Reading Location: [facility] Cervical Spine CT 06/08/25 18:16 IMPRESSION: No acute osseous abnormality of the cervical spine. Multilevel degenerative changes. Reading Location: [id number] Chest X-Ray 06/08/25 18:43 IMPRESSION: Low lung volumes, without definite evidence of an acute cardiopulmonary abnormality. Reading Location: [facility] Assessment & Plan Assessment/Plan (1) Syncope and [...] of discharge. Give acetaminophen as needed for bpkj-tv-uqcgwfug (level 1-5/10) pain or fever. 3. Dehydration [...] 85 minutes. Charges/Coding Visit Charges OBSV E&M: 32888 Observ/hosp same date L3 06/09/25 0604 <Electronically signed by Geo Garza DO> Cosigner Signature (if applicable): CC: Dr. Geo Garza DO; Dr. Ja Cooley MD~ Signed [facility] Work Phone: 1(745) 925-153507-21-2025 History and physical note [facility] Medical Records Department [address] [place] [address] H&P Exam - Hospitalist 06/08/252109 MR#: [id number] Acct: [id number] Name: LUIS ARMANDO GRIFFITH Rep #:[id number] : 1945 79 From: Geo Marin DO PCP: Dr. Ja Cooley MD Status:AD M SANDHYA Location: [address] - [facility] Date of Admission: 06/08/25 Date of [...] on hydrocodone-acetaminophen prn QID who presents to [facility] ER complaining of syncope with collapse. Mr. [...] be less than 2 midnights. [facility] Medical History Parkinson's disease Right bundle branch [...] % (Auto) 51.9, Lymph % (Auto) 36.0, [place] % (Auto) 8.5, Eos % (Auto) 1.9, [...] Clarity Clear, Urine pH 6.0, Ur Specific [place] 1.020, Urine Protein 15 H, Urine Glucose [...] evidence of acute sinusitis. Reading Location: [facility] Cervical Spine CT 06/08/25 18:16 IMPRESSION: No acute osseous abnormality of the cervical spine. Multilevel degenerative changes. Reading Location: [facility] Chest X-Ray 06/08/25 18:43 IMPRESSION: Low lung volumes, without definite evidence of an acute cardiopulmonary abnormality. Reading Location: [facility] Assessment & Plan Assessment/Plan (1) Syncope and [...] timeof discharge. Give acetaminophen as needed for ouar-hb-yemcxnxo (level 1-5/10) pain or fever. 3. Dehydration [...] 85 minutes. Charges/Coding Visit Charges OBSV E&M: 05172 Observ/hosp same date L3 06/09/25 0604 Cosigner Signature (if applicable): CC: Dr. Geo Garza DO; Dr. Ja Cooley MD~ Signed [facility]07-21-2025 Discharge summary Author Joe Soto [facility] Note Date/Time June 08, 2025 11:1 6pm [facility] Medical Records Department [address] [place] [address] Emergency Department Summary 06/08/25 MR#: [id number] Acct: [id number] Name: LUIS ARMANDO GRIFFITH Rep #:[id number] : 1945 79 From: Joe Soto DO PCP: Dr. Ja Cooley MD Status:AD M [facility] Location: [place] [address] HPI History of Present Illness Chief Complaint: Fall Detail of Chief Complaint: Syncope with head injury Informant: patient Narrative Narrative: Patient presents from [facility] after a syncopal episode. Patient states that he had gotten lightheaded so he sat on his rollator and the next thing he remembers is waking up on the floor. Does complain of headache. Denies neck pain. Denies chest pain or shortness of breath. He has history of Parkinson's. Denies any pain in his abdomen or legs. Patient not anticoagulated. [facility] Medical History Parkinson's disease Right bundle [...] % (Auto) 51.9 Lymph % (Auto) 36.0 [place] % (Auto) 8.5 Eos % (Auto) 1.9 [...] clinical evidence of acute sinusitis. Reading Location: [id number]-O Cervical Spine CT 06/08/25 18:16 IMPRESSION: No acute osseous abnormality of the cervical spine. Multilevel degenerative changes. Reading Location: [id number]-S Chest X-Ray 06/08/25 18:43 IMPRESSION: Low lung volumes, without definite evidence of an acute cardiopulmonary abnormality. Reading Location: [id number] 1 view chest x-ray obtained interpreted by [...] MD [Primary Care Provider] - Print Language: Zambian Disposition Disposition: Acute Care Hospital [facility] What to do if you have Problems For any increased pain, shortness of breath, bleeding, nausea or vomiting, chestpain, or any unexpected problems, contact your Primary Care Provider. Call [facility] ([phone]) or report to the closest Emergency Room. Call 911 if necessary. 06/08/25 2820 <Electronically signed by Joe Soto DO> Cosigner Signature (if applicable): CC: Dr. Ja Cooley MD ~ Signed [facility] Work Phone: 1(968) 337-355507-20-2025 Discharge summary [facility] Medical Records Department [address] [place] [address] Emergency Department Summary 06/08/25 MR#: [id number] Acct: [id number] Name: LUIS ARMANDO GRIFFITH Rep #:[id number] 86 : 1945 79 From: Joe Soto DO PCP: Dr. Ja Cooley MD Status:AD M SANDHYA Location: [address] History of Present Illness Chief Complaint: Fall Detail of Chief Complaint: Syncope with head injury Informant: patient Narrative Narrative: Patient presents from [facility] after a syncopal episode. Patient states that he had gotten lightheaded so he sat on his rollator and the next thing he remembers is waking up on the floor. Does complain of headache. Denies neck pain. Denies chest pain or shortness of breath. He has history of Parkinson's. Denies any pain in his abdomen or legs. Patient not anticoagulated. [facility] Medical History Parkinson's disease Right bundle [...] % (Auto) 51.9 Lymph % (Auto) 36.0 [place] % (Auto) 8.5 Eos % (Auto) 1.9 [...] clinical evidence of acute sinusitis. Reading Location: [id number]-Z Cervical Spine CT 06/08/25 18:16 IMPRESSION: No acute osseous abnormality of the cervical spine. Multilevel degenerative changes. Reading Location: [facility] Chest X-Ray 06/08/25 18:43 IMPRESSION: Low lung volumes, without definite evidence of an acute cardiopulmonary abnormality. Reading Location: [id number]-A 1 view chest x-ray obtained interpreted by [...] MD [Primary Care Provider] - Print Language: Zambian Disposition Disposition: Acute Care Hospital [facility] What to do if you have Problems For any increased pain, shortness of breath, bleeding, nausea or vomiting, chestpain, or any unexpected problems, contact your Primary Care Provider. Call [facility] ([phone]) or report tothe closest Emergency Room. Call 911 if necessary. 06/08/25 2426 Cosigner Signature (if applicable): CC: Dr. Ja Cooley MD ~ Signed [facility]07-20-2025 Radiology Diagnostic study note [facility] Imaging Services [address] [place] [address] Spine Cervical without Contras MR#: [id number] Acct: [id number] Name: LUIS ARMANDO GRIFFITH Rep #: [id number] : 1945 M 79 From: Carolyn Medina MD PCP: Dr. Ja Cooley MD Status: RE G ER Study:Spine Cervical without Contras Date of Exam: 06/08/25 Exam# [id number] Ordering Dr: Darien Soto mus DO PROCEDURE: SPINE CERVICAL WITHOUT CONTRAS 06/08/2025 [...] cervical spine. Multilevel degenerative changes. Reading Location: [id number]-[id number] CC: Dr. Ja Cooley MD; Dr. Joe Soto DO ~ Corporate Communications Manager: Signed [facility]07-20-2025 Radiology Diagnostic study note [facility] Imaging Services [address] [place] [address] Brain/Head without Contrast MR#: [id number] Acct: [id number] Name: LUIS ARMANDO GRIFFITH Rep #: [id number] 72 : 1945 M 79 From: Carolyn Medina MD PCP: Dr. Ja Cooley MD Status: RE G ER Study:Brain/Head without Contrast Date of Exa m: 06/08/25 Exam# [id number] Ordering Dr: Darien Soto DO PROCEDURE: BRAIN/HEAD [...] clinical evidence of acute sinusitis. Reading Location: [facility] CC: Dr. Ja Cooley MD; Dr. Joe Soto DO ~ Corporate Communications Manager: Signed [facility]07-20-2025 Radiology Diagnostic study note [facility] Imaging Services [address] [place] [address] Chest 1 View (Portable) MR#: [id number] Acct: [id number] Name: LUIS ARMANDO GRIFFITH Rep #: [id number] : 1945 M 79 From: Carolyn Medina MD PCP: Dr. Ja Cooley MD Status: RE G ER Study:Chest 1 View (Portable) Date of Exam: 06/08/25 Exam# [id number] Ordering Dr: Darien Soto DO PROCEDURE: CHEST [...] of an acute cardiopulmonary abnormality. Reading Location: [id number] CC: Dr. Ja Cooley MD; Dr. Joe Soto DO ~ Corporate Communications Manager: Signed [facility]06-22-2025 Discharge summary [facility] Medical Records Department [address] [place] [address] Emergency Department Summary 05/11/25 MR#: [id number] Acct: [id number] Name: LUIS ARMANDO GRIFFITH Rep #:[id number] [...] Yes (3 weeks ago) Recent Illness/Hospitalization: No [facility] Medical History Parkinson's disease Right bundle [...] Care Provider] - As Needed Print Language: Zambian Disposition Disposition: Home, Self Care What to do if you have Problems For any increased pain, shortness of breath, bleeding, nausea or vomiting, chestpain, or any unexpected problems, contact your Primary Care Provider. Call [facility] ([phone]) or report tothe closest Emergency Room. Call 911 if necessary. 05/11/25 8000 Cosigner Signature (if applicable): CC: Dr. Ja Cooley MD ~ Signed [facility]06-22-2025 Discharge summary Author Dano Minor [facility] Note Date/Time May 11, 2025 6:49 pm [facility] Medical Records Department [address] [place] [address] Emergency Department Summary 05/11/25 MR#: [id number] Acct: [id number] Name: LUIS ARMANDO GRIFFITH Rep #:[id number] [...] (3 weeks ago) Recent Illness/Hospitalization: No [facility] Medical History Parkinson's disease [...] Care Provider] - As Needed Print Language: Zambian Disposition Disposition: Home, Self Care What to do if you have Problems For any increased pain, shortness of breath, bleeding, nausea or vomiting, chestpain, or any unexpected problems, contact your Primary Care Provider. Call [facility] ([phone]) or report to the closest Emergency Room. Call 911 if necessary. 05/11/25 659 <Electronically signed by Dano Minor MD> Cosigner Signature (if applicable): CC: Dr. Ja Cooley MD ~ Signed [facility] Work Phone: 1(296) 528-206906-20-2025 Procedure note [facility] Speech Pathology [address] [place] [address] Modified Barium Swallow Study MR#: [id number] Acct: [id number] Name: LUIS ARMANDO GRIFFITH Rep #:[id number] : 1945 79 From: Heather Braun, [facility] Modified Barium Swallow Patient Information Study Date: 05/09/25 Study Time: 13:05 Direct Billable Minutes: 120 Total Minutes procedure & reportin Diagnosis: Dysphagia R13.10 Referring Physician: Vick Santo Reason for Referral: The patient presents for repeat MBSS recommended by his OP [employer]. Patient and wifereport coughing w/ food and [...] cup: Result: 2= enter airway/above vocal folds/ejected [place] Thick Liquid via large single sip: cup: [...] sizes taken during MBSS were large/sequential despite [employer] cues for small sip. Decreased bolus size is recommended to decrease aspiration risk. [facility] provided information re: bolus control cup. The [...] Supervision: Assist as needed ( informed the [employer] that supervision at each meal is not possible,[facility] recommends supervision as much as able to [...] further education on strategies & risks. Comment: [employer] provided extensive education w/ pt and in results and recommendations of MBSS via review of some images, verbal discussion, and handouts (Easy to Chewdiet texture information/testing, MBSS Recommendations, and [place] Bolus Control Cup information). Education well received. Pt would benefit from continued training in safe swallowing precautions. Status Active ST Patient: Active Contact Information [facility] Speech Therapy:: Heather Titus M.A. CCC-[facility]? Speech-Language Pathologist?? [facility] [address] [place] [address]? [email or web address]?? [phone] 05/09/25 1600 ANGIE [place]-[facility]> Date/Time Heather Titus M.A. [facility] Co-Signature Required for all Medicare patients Date/Time Co-Signature CC: ~ [facility]05-25-2025 Hospital Discharge instructions* Discharge Instructions* Chetan Powell MD - 04/13/2025 9:41 PM EDT You had 10 stitches placed. Please present to an urgent care, your primary care physician, or back to the emergency department in 5-7 days to have your stitches removed. * Attachments The following attachments cannot be sent through Care Everywhere. * Nose Fracture (Zambian) documented in this [facility]05-25-2025 Emergency department Note* Chetan Powell MD [...] records from: PDMP demonstrating 1 prescription, for [place] demonstrating bilateral nasal bone fractures. The [...] initial encounter Medications lidocaine-EPINEPHrine (Xylocaine W/EPI) 1 %-1:547318 injection 10 mL (has no administration in [...] Consent obtained: Verbal Consent given by: Patient Colwich protocol: Imaging studies available: yes Patient identity [...] Discharge 04/13/2025 09:39:45 PM PATIENT REFERRED TO: [facility] [address] [id number] Schedule an appointment as soon as possible [...] for the surgery on 04/17/[address] [facility] COPD (chronic obstructive pulmonary disease) ([facility]) Diabetes mellitus type 2, controlled (CMS/HCC) ([facility]) STEBBINS (hard of hearing) HAS HEARING AID BOTH EARS , BUT DID NOT WEAR THEM Hyperlipidemia Hypertension MELISSA on CPAP [2] Past Surgical History: Procedure Laterality Date COLONOSCOPY COLONOSCOPY ELBOW SURGERY Left 1990 Lateral epicondylitis surgery EYE SURGERY bilat cataracts and implants JOINT REPLACEMENT Bilateral TKA L 2005, TKA R 2011 SKIN BIOPSY SPINAL FUSION 2000 L2,3,4; AT [facility] WRIST ARTHROSCOPY (HISTORICAL) Left 04/17/2018 [3] [...] forehead above left eye documented in this [facility]05-25-2025 Emergency department Triage note* Cielo Valverde RN - 04/13/2025 8:38 PM EDT Pt presents to ED via EMS from restaurant for c/o left frontal head lac after losing footing and falling onto face on the ground. Pt has hx of parkinson's. Abrasion noted to forehead, small lac notedto bridge of nose as well as a large lac to forehead above left eye [facility] Physician Emergency department Note* Chetan Powell MD [...] CT maxillofacial I reviewed external records from: [facility] demonstrating 1 prescription, for [place] demonstrating bilateral nasal bone fractures. The [...] initial encounter Medications lidocaine-EPINEPHrine (Xylocaine W/EPI) 1 %-1:821269 injection 10 mL (has no administration in [...] Consent obtained: Verbal Consent given by: Patient Colwich protocol: Imaging studies available: yes Patient identity [...] Discharge 04/13/2025 09:39:45 PM PATIENT REFERRED TO: [address] [phone] Schedule an appointment as soon [...] for the surgery on 04/17/[address] [facility] COPD (chronic obstructive pulmonary disease) ([facility]) Diabetes mellitus type 2, controlled ([facility]/HCC) ([facility]) STEBBINS (hard of hearing) HAS HEARING AID BOTH EARS , BUT DID NOT WEAR THEM Hyperlipidemia Hypertension MELISSA on CPAP [2] Past Surgical History: Procedure Laterality Date COLONOSCOPY COLONOSCOPY ELBOW SURGERY Left 1990 Lateral epicondylitis surgery EYE SURGERY bilat cataracts and implants JOINT REPLACEMENT Bilateral TKA L 2005, TKA R 2011 SKIN BIOPSY SPINAL FUSION 2000 L2,3,4; AT [facility] WRIST ARTHROSCOPY (HISTORICAL) Left 04/17/2018 [3] [...] Drug use: No Chetan Powell MD 04/13/252221 [facility]24-47-7652 Discharge summary [facility] Medical Records Department [address] [place] [address] Emergency Department Summary 04/09/25 MR#: [id number] Acct: [id number] Name: LUIS ARMANDO GRIFFITH Rep #:[id number] [...] take blood thinners. Tetanus Immunization: <5 years [facility] Medical History Parkinson's disease Right bundle [...] change from the prior exam. Reading Location: [facility] Cervical Spine CT 04/09/25 11:34 IMPRESSION: 1. No acute fracture. 2. Degenerative changes of the cervical spine as described. Reading Location: [facility] Discharge Plan Triage Chief Complaint: Head Injury ED Provider: Surya Dumont Dx/Rx/DC Orders Clinical Impression: Fall, Laceration of scalp Instructions: ED Head Injury (Adult), ED Laceration Scalp Stitches or [place] Prescriptions: No Action pravastatin 80 mg tablet [...] wound, new or worsening symptoms. Print Language: Zambian Disposition Disposition: Home, Self Care What to do if you have Problems For any increased pain, shortness of breath, bleeding, nausea or vomiting, chestpain, or any unexpected problems, contact your Primary Care Provider. Call [facility] ([phone]) or report tothe closest Emergency Room. Call 911 if necessary. 04/09/25 1255 Cosigner Signature (if applicable): CC: Dr. Ja Cooley MD ~ Signed [facility]05-21-2025 Radiology Diagnostic study note [facility] Imaging Services [address] [place], [place] [address] Spine Cervical without Contras MR#: [id number] Acct: [id number] Name: LUIS ARMANDO GRIFFITH Rep #: [id number] : 1945 M 79 From: Kristy Corey MD PCP: Dr. Ja Cooley MD Status: DARIEN Teixeira ER Study:Spine Cervical without Contras Date of Exam: 04/09/25 Exam# [id number] Ordering Dr: Surya Dumont MD EXAM: CT [...] the cervical spine as described. Reading Location: [facility] CC: Dr. Surya Dumont MD; Dr. Ja Cooley MD ~ Corporate Communications Manager: Signed [facility]05-21-2025 Radiology Diagnostic study note [facility] Imaging Services [address] [place] [address] [id number] Brain/Head without Contrast MR#: [id number] Acct: [id number] Name: LUIS ARMANDO GRIFFITH Rep #: [id number] : 1945 M 79 From: Kristy Corey MD PCP: Dr. Ja Cooley MD Status: DARIEN Teixeira ER Study:Brain/Head without Contrast Date of Exa m: 04/09/25 Exam# [id number] Ordering Dr: Surya Dumont MD EXAM: CT [...] change from the prior exam. Reading Location: [facility] CC: Dr. Surya Dumont MD; Dr. Ja Cooley MD ~ Corporate Communications Manager: Signed [facility]05-21-2025 Hospital Discharge instructions Additional Instructions Have brandi removed by your primary care provider in 7 to 10 days. There were a total of 5 brandi inserted. Return to the emergency department with fever, drainage of pus from wound, new or worsening symptoms.[facility] Work Phone: 1(804) 535-990205-01-2025 Evaluation note* Diagnosis Onset Date Resolution Status Admit Date Dysphagia acute March 20, 2025 3:22pm Abnormality of gait and mobility chr onic March 20, 2025 3:22pm Dementia chronic March 20, 2025 3:22pm Parkinson's disease chronic March 202024 3:22pm Polyneuropathy chronic March 20, 025 3:22pm Acute sinusitis acute May 9:40pm Closed head injury acute May 212024 9:40pm Dehydration acute June 08 9:40pm History of dementia acute June 08, 2025 9:40pm History of Parkinson's disease acute June 08, 2025 9:40pm Obesity (BMI 30-39.9) acute May 9:40pm Syncope acute June 08 9:40pm Syncope and collapse acute June 08, 2025 9:40pm [facility] Work Phone: 1(483) 779-409905-01-2025 Evaluation note* Diagnosis Onset Date Resolution Status [...] May 9:40pm Syncope inactive June 08 9:40pm [facility] Work Phone: 1(137) 854-936105-01-2025 Evaluation note* Diagnosis Onset Date Resolution Status [...] 08 9:40pm Dysphagia acute June 24 2:20pm [facility] Work Phone: 1(657) 241-331605-01-2025 Evaluation note* Diagnosis Onset Date Resolution Status [...] 24 2:20pm Fatigue acute June 26 1:05pm [facility] Work Phone: 1(623) 360-947605-01-2025 Evaluation note* Diagnosis Onset Date Resolution Status [...] fibrillation chron ic June 27, 2025 1:22pm [facility] Work Phone: 1(686) 541-922105-01-2025 Evaluation note* Diagnosis Onset Date Resolution Status [...] fibrillation chron ic June 27, 2025 1:22pm [facility] Work Phone: 1(129) 555-991503-28-2025 Radiology Diagnostic study note [facility] Imaging Services [address] [place], [place] [address] Spine Cervical without Contras MR#: [id number] Acct: [id number] Name: LUIS ARMANDO GRIFFITH Rep #: [id number] : 1945 M 79 From: Roopa Corbett MD PCP: Dr. Ja Cooley MD Status: RE G ER Study:Spine Cervical without Contras Date of Exam: 02/14/25 Exam# [id number] Ordering Dr: Darien Soto DO PROCEDURE: SPINE [...] ACUTE CERVICAL FRACTURE. DEGENERATIVE CHANGES. Reading Location: [facility] CC: Dr. Ja Cooley MD; Dr. Joe Soto DO ~ Corporate Communications Manager: Signed [facility]03-28-2025 Radiology Diagnostic study note [facility] Imaging Services [address] [place] [address] 540641 Brain/Head without Contrast MR#: [id number] Acct: [id number] Name: LUIS ARMANDO GRIFFITH Rep #: [id number] : 1945 M 79 From: Roopa Corbett MD PCP: Dr. Ja Cooley MD Status: RE ER Study:Brain/Head without Contrast Date of Exa m: 02/14/25 Exam# [id number] Ordering Dr: Darien Soto DO EXAM: BRAIN/HEAD [...] ischemic change and age-related change. Reading Location: [facility] CC: Dr. Ja Cooley MD; DO Murray Marcum Corporate Communications Manager: Signed [facility]03-20-2025 Evaluation note* Diagnosis Onset Date [...] Polyneuropathy chronic March 20, 2 025 3:22pm [facility] Work Phone: 1(318) 277-147803-04-2025 Radiology Diagnostic study note [facility] Imaging Services [address] [place], [place] [address] Chest PA and Lateral MR#: [id number] Acct: [id number] Name: LUIS ARMANDO GRIFFITH Rep #: [id number] : 1945 M 79 From: Kristy Corey MD PCP: Dr. Ja Cooley MD Status: RE G CLI Study:Chest PA and Lateral Date of Exam: 01/21/25 Exam# [id number] Ordering Dr: Ja Cooley MD EXAM: XR Chest, 2 Views CLINICAL INDICATION: TECHNIQUE: Frontal and lateral views of the chest. COMPARISON: No relevant prior studies available. FINDINGS: LUNGS AND PLEURAL SPACES: Unremarkable. No consolidation. No pneumothorax. HEART: Unremarkable. No cardiomegaly. MEDIASTINUM: Unremarkable. Normal mediastinal contour. BONES/JOINTS: Unremarkable. No acute fracture. RAD/Chest PA and Lateral IMPRESSION: No acute cardiopulmonary process. Reading Location: [facility] CC: Dr. Ja Cooley MD ~ Corporate Communications Manager: Signed [facility]01-21-2025 Evaluation note* Diagnosis Onset Date Resolution Status Admit Date Diplopia acute December 10, 2024 10:37am Dysphagia acute December 10, 2024 10:37am Abnormality of gait and mobility chronic December 10 10:37am Dementia chronic December 10, 2024 10:37am Parkinson's disease chronic 2024 10:37am Polyneuropathy chronic December 102024 10:37am [facility] Work Phone: 1(699) 234-420001-21-2025 Evaluation note* Diagnosis Onset Date Resolution Status [...] 06, 2025 1:00pm Polyneuropathy chronic January 1:00pm [facility] Work Phone: 1([phone]) 539-919601-21-2025 Evaluation note* Diagnosis Onset Date Resolution Status [...] March 202024 3:22pm Polyneuropathy chronic March 20, 3:22pm [facility] Work Phone: 1(856) 734-501908-02-2023 Procedure [facility] 02-15-2023 NoteHNO ID: [id number] Author: Willis Ryder PT, DPT Service: ? Author Type: Physical Therapist Type: Progress Notes Filed: 02/15/2023 7:45 AM Note Text: 02/15/2023 [facility] REHABILITATION AND SPORTS THERAPY PHYSICAL THERAPY DISCONTINUANCE [...] appointments due to fx of foot. Willis Ryder PT, DPTHOTrumbull Memorial HospitalOxtbertn77-76-5811 Miscellaneous Notes* Telephone Encounter - Mary Harrison RN - 02/14/2023 3:08 PM EDT message sent to patient and for further assessment. Awaiting reply. YVONNE Naik, RN February 14, 2023 3:08 PM * Telephone Encounter - Mary Harrison RN - 02/14/2023 3:04 PM EDT Received voicemail from patients' on Mon02/14/2023 2:28 PM Transcript below: This is Brennen Girffith. My phone number is [phone]. I'm calling for my Luis Armando Griffith. [...] really bad or it's gonna be a residential and I don't wannado that so please [...] is very concerned. Please call her at [phone]. Raeann Vizcarra documented in this encounterFirelands [facility]03-25-[address] Farooq [facility] February 11, 2023 2:01pm Note Date/Time February 11, 2023 1:2 0pm [facility] Medical Records Department [address] [place] [address] Emergency Department Summary 02/11/23 MR#: [id number] Acct: [id number] Name: LUIS ARMANDO GRIFFITH Rep #:[id number] [...] bear weight on it since the injury. [facility] Medical History Arthritis Back problem Cataract [...] no malocclusion, able to move his mandible bsgh-hxv-qdjbj without any discomfort. Zygomatic arch is nontender [...] your Primary Care Provider. Call [facility] ([phone]) or report to the closest Emergency Room. Call 911 if necessary. 02/11/23 1401 <Electronically signed by Osman Farooq MD> Cosigner Signature (if applicable): CC: Dr. Ja Cooley MD; Dr. Arnaud Jean-Baptiste MD ~ Signed [facility] Work Phone: 1(722) 992-111602-24-2023 Miscellaneous Notes* Telephone Encounter - Karen Parra RN - 01/13/2023 2:26 PM EST Received voicemail 01-13-23 at 12:31 PM. My name is Brennen Griffith. My phone number is [phone]. This is in regard to Luis Armando Nacho. I'm calling to return a call. Hopefully [...] is Brennen Griffith. My phone number is [phone]. My 's name is Luis Armando Griffith. [...] to provider for review. documented in this encounterFirelands [facility] Medical Center South Campus01-23-2023 NoteHNO ID: [id number] Author: Gary Ruiz APRN.GENERAL PARTNER Service: ? Author Type: Nurse Practitioner Type: Progress Notes Filed: 12/13/2022 10:48 PM Note Text: [facility] - FOLLOW UP EVALUATION Ja Cooley MD [address] [facility] [address] Dear Ja Cooley MD: I had the [...] Flowsheet Row OT/PT/Speech Visit from 10/04/2022 in [facility] OT/PT/Speech Visit from 08/25/2022 in [facility] T [...] three times daily. insulin (more content not included)...[facility]01-23-2023 Instructions* Patient Instructions* Gary Ruiz APRN.GENERAL PARTNER - 12/12/2022 2:56 PM EST It was [...] canhave them on file here at the [facility]. Interested in clinical research? Not currently Movement Disorders Medication Schedule: Medications 6am 12pm 5pm Bedtime Sinemet 25/100 2 2 1 1 Sertaline 50mg 1 Return in about 6 months (around 06/11/2023). If there are any concerns before your next visit, please call or you can send a message through Baifendian. You can also now schedule and select appointments through [employer]. Gary Ruiz APRN.GUADALUPE documented in this encounterFirelands Regional Medical Center South Campus01-23-2023 History of Present illness Narrative* Gary Ruiz APRN.GUADALUPE - 12/12/2022 2:00 PM EST [facility] - FOLLOW UP EVALUATION Ja Cooley MD [address] [facility] [address] Dear Ja Cooley MD: I had the [...] Flowsheet Row OT/PT/Speech Visit from 10/04/2022 in [facility] OT/PT/Speech Visit from 08/25/2022 in [facility] T [...] D3 50 MCG, 2,000 UNIT, GUMMIES) fluticasone jteisfn-gwuvkytzpdpx-xofeshqcsr (TRELEGY ELLIPTA) 200-62.5-25 mcg powder inhaler Inhale1 [...] OXYGEN-AIR DELIVERY SYSTEMS MISC Inhale as instructed. BiscootSTYLE CALIXTO 2 SENSOR kit use to TEST [...] parkinsonian. Then he underwent surgical evaluation at [facility] and DaTscan done there was indicative [...] canhave them on file here at the [facility]. Interested in clinical research? Not currently Updated Movement Disorders Medication Schedule: Medications 6am 12pm 5pm Bedtime Sinemet 25/100 2 2 1 1 Sertaline 50mg 1 Level of service : 61290 (40-54 min). Time spent 51 ( 1:54pm-2:45pm) min on the day of service, which included preparing to see the patient, fbhb-mj-brwe patient care, completing clinical documentation, obtaining and/or reviewing separately obtained history, performing a medically appropriate examination, and counseling and educating the patient/family/caregiver. Gary Ruiz APRN.GENERAL PARTNER documented in this encounterFirelands Regional Medical Center South Campus11-21-2022 Miscellaneous Notes* Telephone Encounter - Thaddeus Wilkinson MD - 10/10/2022 3:30 PM EST Thanks for the FYI. Well done! JHS * Telephone Encounter - Mary Harrison RN - 10/10/2022 2:32 PM EST Received voicemail from patient on 10/10/2022 9:09 AM Transcript below: Morning this is Luis Armando Griffith and my phone number is [phone]. I calling to find out if there'sa [...] Voicemail left directing patient to a detailed [employer] message. Requested reply via MC or RCTO. Provided office number. Message shared with covering provider as CAR is OOO. Mary Harrison, MSN, RN October 10, 2022 2:44 PM documented in this encounterFirelands Regional Medical Center [facility] Campus11-15-2022 NoteHNO ID: [id number] Author: Willis Ryder, PT, DPT Service: ? [...] Time Minutes (timed/untimed): 45 Willis Ryder PT, [facility]11-15-2022 History of Present illness Narrative* Willis BENY Ryder, DPT - 10/04/2022 11:59 AM [...] Willis Ryder PT DPT documented in this encounterFirelands Regional Medical Center [facility] Campus10-28-2022 Miscellaneous Notes* Addendum Note - Jaylyn [...] go to [employer] [facility]. documented in this [facility]10-28-2022 Miscellaneous Notes* Telephone Encounter - Mary Harrison RN - 09/16/2022 8:48 AM EDT Called and left voicemail that an updated RX had been sent for the Cymbalta. Provided office number for RCTO and option to message via Baifendian. YVONNE Naik RN September 16, 2022 8:48 [...] family's care. Update shared with CAR. Mary Harrison MSN, RN September 14, 2022 1:54 PM * Telephone Encounter - Mary Harrison RN - 09/13/2022 12:30 PM EDT Returned call to Brennen. No reply, left detailed message requesting RCTO. Provided office number jay alonzo. Awaiting reply. YVONNE Naik, RN September 13, 2022 12:31 PM * Telephone Encounter - Lena Adams - 09/12/2022 2:34 PM EDT NI PHONE NAME OF CALLER: Brennen RELATIONSHIP TO PATIENT: spouse PATIENT ID'D BY NAME/: yes REASON FOR CALL: States that his PD symptoms are worsening and she would like to speak with Stefania. CALLBACK #: [phone] OK TO LEAVE MESSAGE: ok only on this number - do not leave at home number LAST FUV: 08/04/22 with KA documented in this encounterFirelands Regional Medical Center [facility] Campus10-27-2022 NoteHNO ID: [id number] Author: Willis Ryder, PT, DPT Service: ? [...] Patient to be seen for Therapeutic exercise (62198);Neuromuscular re-education (54752);Manual therapy (40041);Therapeutic activities (20064);Self-shelter management (09469);Gait Training (90993);Functional training;General Conditioning;Body Mechanics Training;Patient/Family/Caregiver Education PLAN FOR [...] Time Minutes (timed/untimed): 45 (more content not included)...[facility] JacksonDzoppuyp64-06-6326 NoteHNO ID: [id number] Author: Aleida Ramirez MD Service: ? Author [...] 1 tablet by mouth twice daily. fluticasone otjtrjw-wjwbibgomish-ncnhsadvgu (TRELEGY ELLIPTA) 200-62.5-25 mcg powder inhaler Inhale [...] Negative for malaise, signif (more content not included)...[facility]10-14-2022 History of Present illness Narrative* Aleida Ramirez [...] 1 tablet by mouth twice daily. fluticasone gtftucx-yarfzbjfceag-amjyifdwru (TRELEGY ELLIPTA) 200-62.5-25 mcg powder inhaler Inhale1 [...] prior psychiatrist Therapist: No prior therapist Current Stained Glass Window Designer: None Last Hospitalization: Denies hospitalization. ECT: None Previous Discontinued Psychiatric Med Trials: None SUBSTANCE USE HISTORY: Nicotine: 40 py, quit 23 years ago Caffeine: Coffee, 3 cups/day Alcohol: Drank when he was younger, Marijuana: No history of use or dependence Cocaine: No history of use or dependence Opiods: No history of use or dependence SPIRITUALITY: Tenriism [facility]: Luis Armando Griffith is the oldest of 6 siblings. The patient was born and raised in [place]. He completed school He described his childhood [...] PAGER : see directory documented in this encounterFirelands Regional Medical Center [facility] Campus10-06-2022 NoteHNO ID: [id number] Author: Willis Ryder PT, DPT Service: ? [...] Time Minutes (timed/untimed): 38 Willis Ryder PT, DPACMC Healthcare System GlenbeighRgzwilie36-52-4895 History of Present illness Narrative* Willis Ryder PT, HERBT - 08/25/2022 5:11 PM [...] Willis Ryder PT, DPT documented in this encounterFirelands Regional Medical Center [facility] Campus09-22-2022 NoteHNO ID: [id number] Author: Willis Ryder PT, DPT Service: ? [...] Planned: 4 Planned Treatment Interventions: Therapeutic exercise (44278);Neuromuscular re-education (21008);Manual therapy (66513);Therapeutic activities (89452);Self-shelter management (30121);Gait Training (16095);Functional training;General Conditioning;Body Mechanics Training;Patient/Family/Caregiver Education PLAN FOR [...] the average of the (more content not included)...[facility] JacksonKxptmkhc43-13-9493 NoteHNO ID: [id number] Author: Jaylyn Nieves MD Service: ? Author Type: Physician Type: Progress Notes Filed: 08/04/2022 5:35 PM Note Text: [facility] - FOLLOW UP EVALUATION Ja Cooley MD [address] [facility] [address] [facility] [address] I had the pleasure of seeing Mr. [...] 1 tablet by mouth twice daily. fluticasone xgtmsyw-zbtlewkrdihr-kynwmbnulf (TRELEGY ELLIPTA) 200-62.5-25 mcg powder inhaler Inhale [...] 24 hr table (more content not included)... [facility]09-15-2022 Instructions* Patient Instructions* Jaylyn Nieves MD - [...] or you can send a message through [employer]end[employer]. You can also now schedule and select appointments through [employer]. Jaylyn Nieves MD documented in this encounterFirelands Regional Medical Center [facility] Campus09-15-2022 History of Present illness Narrative* Jaylyn Nieves MD - 08/04/2022 2:20 PM EDT [facility] - FOLLOW UP EVALUATION Ja Cooley MD [address] [facility] [address] I had the pleasure of seeing Mr. [...] 1 tablet by mouth twice daily. fluticasone mfjuufi-jsvztdnfiwyx-hipirtgxmk (TRELEGY ELLIPTA) 200-62.5-25 mcg powder inhaler Inhale1 [...] parkinsonian. Then he underwent surgical evaluation at [facility] and DaTscan done there was indicative [...] gait he reports both lightheadedness and imbalance. [place] symptomatic today upon standing but orthostatics were [...] or around: 11/03/22 Level of service : 50606 (40-54 min). Time spent 45 min on the day of service, which included preparing to see the patient, qzuq-kl-usas patient care, completing clinical documentation, performing a [...] Sincerely, Jaylyn Nieves MD documented in this encounterFirelands Regional Medical Center [facility] Campus09-09-2022 NoteHNO ID: [id number] Author: Willis Ryder PT, DPT Service: ? Author Type: Physical Therapist Type: Progress Notes Filed: 07/29/2022 4:54 PM Note Text: 07/29/2022 [facility] REHABIL[facility] SPORTS THERAPY PHYSICAL THERAPY DISCONTINUANCE [...] scheduled additional follow-up appointments. Willis Ryder PT, DPNavinHarrison Community [id number] Miscellaneous Notes* Telephone Encounter - Mary Harrison RN - 07/21/2022 12:08 PM EDT Received voicemail from patient's on Rosalia 07/21/2022 10:52 AM Transcript below: Kaila my name is Brennen Griffith. My 's name is Luis Armando Griffith. He is a patient of Dr. Gordillo. My phone number is [phone]. I'm calling to speak to somebody regarding [...] Updates shared with MD CAR & SS, DOOR TRIMMER. If any guidance is suggested, RN will contact with feedback. Mary Harrison, MSN, RN July 21, 2022 12:42 PM documented in this encounterFirelands [facility]06-29-2022 Miscellaneous Notes* Telephone Encounter - Jaylyn [...] REJI: No Blossom S documented in this encounterFirelands Regional Medical Center South Campus05-10-2022 NoteHNO ID: [id number] Author: Maine Medel, PT, DPT Service: ? [...] SLS >10 seconds B Become involved with [facility] [place] in home exercise program. Patient will demonstrate increase in B hip strength strength to 5/5 during manual muscle testing in order to improve function for balance Increase strength in ankle to 5/5 for balance. Be able to turn in a alutiiq in 8 steps. Decrease tug to <10 seconds without AD for improved richard and step length Patient Goals: to learn about PD, to reduce falls Planned Interventions, Frequency, and Duration: Current Frequency: 1x/week Duration: 4 weeks (starting in one month) Total Number of Visits Planned: 4 Planned Treatment Interventions: Therapeutic exercise (18651);Neuromuscular re-education (78890);Manual therapy (41570);Therapeutic activities (37626);Self-shelter management (50487);Gait Training (53010);Functional training;General Conditioning;Body Mechanics Training PLAN FOR NEXT [...] for double vision Visi (more content not included)...[facility] [id number] NoteHNO ID: [id number] Author: MANUEL Grande/Eric Service: ? Author Type: Occupational Therapist Type: Progress Notes Filed: 03/29/2022 5:40 PM Note Text: Episode Visit Count: 2 Therapist That Will Oversee The Plan Of Care: Maria Isabel Romano Start of Care Date: 03/29/22 Onset Date: 06/14/21 Plan of Care Certification Date: 03/29/22 Next Certification Due Date: 03/29/22 Patient Identified by Name and Date of : Yes [facility] OCCUPATIONAL THERAPY EVALUATION [...] WITH LEVEL OF FUNCTION: Hand Strength R Pantographer Position 2 (lbs): 71 lbs L Pantographer Position 2 (lbs): 60 lbs R Lateral [...] avoiding proteins with meds (more content not included)...[facility] [id number] NoteHNO ID: [id number] Author: Michelle Ro CCC-CARPENTERS Service: ? Author Type: Speech Language Pathologist Type: Progress Notes Filed: 03/29/2022 3:59 PM Note Text: Episode Visit Count: 1 Therapist That Will Oversee The Plan Of Care: Andrade Start of Care Date: 03/29/22 Onset Date: 11/20/20 Plan of Care Certification Date: 03/29/22 Patient Identified by Name and Date of : Yes [facility] SPEECH and SWALLOW [...] position 20-30 minutes following all oral intake CARPENTERS Recommendations: Swallowing Precautions;Discontinue Speech Therapy Results and [...] MBS (pt reports had MBS done at [facility] last year, which pt was told 'he did fine' and no recommendations for follow up ST or diet modifications made) Clinical Swallow [place] Swallow Protocol: Fail Fail: Coughing episodes (x1 [...] clear/cough after water (more content not included)... [facility] [id number] History of Present illness Narrative* Maine Medel [...] SLS >10 seconds B Become involved with [facility] [employer] [place] in home exercise program. Patient will demonstrate increase in B hip strength strength to 5/5 during manual muscle testing inorder to improve function for balance Increase strength in ankle to 5/5 for balance. Be able to turn in a alutiiq in 8 steps. Decrease tug to <10 seconds without AD for improved richard and step length Patient Goals: to learn about PD, to reduce falls Planned Interventions, Frequency, and Duration: Current Frequency: 1x/week Duration: 4 weeks (starting in one month) Total Number of Visits Planned: 4 Planned Treatment Interventions: Therapeutic exercise (55544);Neuromuscular re- education (62848);Manual therapy (52146);Therapeutic activities (22486);Self- shelter management (03304);Gait Training (77256);Functional training;General Conditioning;Body Mechanics Training PLAN FOR NEXT [...] Maine Medel PT DPT documented in this encounterFirelands Regional Medical [facility]05-10-2022 History of Present illness Narrative* Michelle Ro CCC-CARPENTERS - 03/29/2022 2:49 PM EDT Episode Visit Count: 1 Therapist That Will Oversee The Plan Of Care: Andrade Start of Care Date: 03/29/22 Onset Date: 11/20/20 Plan of Care Certification Date: 03/29/22 Patient Identified by Name and Date of : Yes [facility] SPEECH and SWALLOW [...] position 20-30 minutes following all oral intake CARPENTERS Recommendations: Swallowing Precautions;Discontinue Speech Therapy Results and [...] MBS (pt reports had MBS done at [facility] last year, which pt was told 'he did fine' and no recommendations for follow up ST or diet modifications made) Clinical Swallow [place] Swallow Protocol: Fail Fail: Coughing episodes (x1 [...] Eval Sound Production with Language Expression and Planting Supervisor (51766) Swallow / Dysphagia (39430): Skilled Intervention: Educated and advised patient / caregiver on texture and liquid consistency recommendations., Instructed patient / caregiver on recommended compensatory strategies to maximize safety with oral intake while maintaining nutrition, hydration and medication stability. Speech/Language Therapy (91465): Skilled Intervention: Educated and instructed patient on [...] Eval Sound Production with Language Expression and Planting Supervisor (74039), Clinical Swallow Evaluation (31784), Speech Treatment (33009) and Dysphagia Treatment (79214) Total time / Length of visit: 60 minutes MARSHA HopperCARPENTERS documented in this encounterFirelands Regional Medical Center South Campus05-10-2022 NoteHNO ID: [id number] Author: Jaylyn Nieves MD Service: ? Author Type: Physician Type: Progress Notes Filed: 03/29/2022 7:35 PM Note Text: [facility] - Multidisciplinary Clinic Jaylyn Nieves [address] [facility] [address] [facility] [address] Ja Cooley MD [address] [facility] [address] [facility] [address] I had the pleasure of seeing Mr. [...] since last visit underwent surgical evaluation at [facility] and DaTscan done there indicative of [...] addressed during this visit (more content not included)...[facility]-10-[facility] Instructions* Patient Instructions* Jaylyn Nieves MD - [...] or you can send a message through [employer]. You can also now schedule and select appointments through [employer]. Jaylyn Nieves MD documented in this encounterFirelands Regional Medical Center [facility] Campus05-10-2022 History of Present illness Narrative* Jaylyn Nieves MD - 03/29/2022 12:27 PM EDT [facility] - Multidisciplinary Clinic Jalyyn Nieves [address] [place] [address] [facility] [address] Ja Cooley MD [address] [place] [address] [facility] [address] I had the pleasure of seeing Mr. [...] Then since last visit underwent surgical evaluation[facility] and DaTscan done there indicative of [...] in 1 week Level of service : 86851 (40-54 min). Time spent 53 min on the day of service, which included preparing to see the patient, slpy-qi-lrlj patient care, completing clinical documentation, counseling and [...] Sincerely, Jaylyn Nieves MD documented in this encounterFirelands Regional Medical Center [facility] Campus05-04-2022 Miscellaneous Notes* Telephone Encounter - Cali Haas MA - 03/23/2022 10:44 AM EDT I called patient to get him pre-roomed for his upcoming appointment. I had to leave a voicemail fora returned call. If patient calls back please transfer call to myself or a clinical staff member to complete this process. Thanks! Cali Haas MA documented in this encounterFirelands Regional Medical Center [facility] Campus04-28-2022 NoteHNO ID: [id number] Author: Jaylyn Nieves MD Service: ? Author Type: Physician Type: Progress Notes Filed: 03/18/2022 4:12 PM Note Text: [facility] - FOLLOW UP EVALUATION No referring provider defined for this encounter. Ja Cooley MD [facility] [address] [address] I had the pleasure of seeing Mr. [...] to be helpful Interval History Seen at [facility] for surgical evaluation. SDR was too [...] mouth three times daily. (more content not included)...[facility]-28-2022 Instructions * Patient Instructions* Jaylyn Nieves MD [...] or you can send a message through [employer]. You can also now schedule and select appointments through [employer]. Jaylyn Nieves MD [facility] Pre-Visit Instructions Welcome to the Parkinson s Multi-Disciplinary Clinic! These visits will consist of four separate appointments provided by Neurology, Speech Therapy, Physical Therapy and Occupational Therapy. The appointments will take place at the [facility] and all occur on the same day. [...] appointment. This call will serve as a hav-kuqsm-xq and be used to review your medications, [...] caregivers, and staff alike. documented in this encounterFirelands Regional Medical Center [facility] Campus04-28-2022 History of Present illness Narrative* Jaylyn Nieves MD - 03/17/2022 2:51 PM EDT [facility] - FOLLOW UP EVALUATION No referring provider defined for this encounter. Ja Cooley MD [address] [facility] [place] [address] [facility] [address] I had the pleasure of seeing Mr. [...] to be helpful Interval History Seen at [facility] for surgical evaluation. SDR was too [...] Then since last visit underwent surgical evaluationat [facility] and DaTscan done there indicative of [...] or around: 07/17/22 Level of service : 39811 (40-54 min). Time spent 54 min on the day of service, which included preparing to see the patient, pdnl-ax-tqef patient care, completing clinical documentation, obtaining and/or [...] Sincerely, Jaylyn Nieves MD documented in this encounterFirelands Regional Medical Center [facility] Campus03-24-2022 History of Present illness Narrative* Jasperet Qureshi MA - 02/10/2022 11:48 AM EDT Images from the original note were not included. SDR for Yurick_S came in at 0.34 with 973 available elements. Other than the low SDR no significantCT deviations noted. documented in this [id number] History of Present illness Narrative* Barb Morton MD - 12/22/2021 10:05 AM EST Video Visit [facility], NEUROSCIENCE [address] [place] [address] [facility] [address] Via Real-time Synchronous Audiovisual [facility] 12/21/2021 Barb Morton MD Provider Location: [facility] Patient Location Data Center Manager: None Patient Location: Patient's Home Patient: Luis [...] that there are some limitations compared to saua-hf-yszf evaluations. We elected to proceed. Subjective Patient [...] Office# Barb Morton MD documented in this [id number] Instructions* Patient Instructions* Barb Morton MD - 12/21/2021 1:33 PM EST Parkinson's Disease Continue the medication Use seroquel at night If you decide that you want to switch to Dr Royal let me know documented in this [id number] Miscellaneous Notes* Telephone Encounter - Jaspreet Qureshi MA - 11/09/2021 11:43 AM EST Spoke to Cali (Pharmacist) for clarification of patient's prescription carbidopa-levodopa (SINEMET) 25-100 mg per tablet [facility] will disp 540 (90 day supply) will 3 refills Please sign script that was called in documented in this [id number] History of Present illness Narrative* Barb Morton [...] pt on at 1230pm. documented in this [id number] History of Present illness Narrative* Barb Morton MD - 11/05/2021 12:21 PM EST I called on 11/05/21 to discuss the results of the meeting and to discuss questions documented in this [id number] History of Present illness Narrative* Jim Bradford [...] tremor. Therefore, the patient was evaluated by ourinvement disorders neurologist, Dr. Barb Morton, as to [...] Dr Morton will call. documented in this [id number] History of Present illness Narrative* Jaspreet Qureshi MA - 11/03/2021 2:29 PM EST Images from the original note were not included. SDR - 0.34 with 973 available elements. Other than the low SDR no significant CT deviations noted. documented in this [id number] History of Present illness Narrative* Sarah Mckenzie, PT - 10/28/2021 11:00 AM EST Images from the original note were not included. [facility] Physical Therapy Evaluation Today's [...] whether he wants to follow-up hereor in [place] as it is significantly closer to home. [...] medications for tremor - has tried one. [place] drunk all of th time. Freezing of [...] mobility Social Support: Patient lives with others. Voodoo, social, or cultural considerations to be made [...] in the last 12 months: Yes (concussion) Voodoo, social, or cultural considerations to be made [...] at this time were answered. CPT Code 91236 Low 34161 Moderate 00840 High History 0 1-2 3+ Comorbidities: chronic [...] Impression: . Luis Armando Griffith presents to [facility] outpatient neurological rehab services for PT [...] above number. Sarah Mckenzie, PT STATE LICENSE, [id number] documented in this [id number] Instructions* Patient Instructions* Barb Morton MD - 10/05/2021 11:[address] Head Physical therapy DATSCAN-the yes/no Parkinson's disease test Jim Batreskarson is the navigator Dr. Barb Morton MD Neurology Office Information Jaspreet Qureshi MA Office# documented in this [id number] History of Present illness Narrative* Barb Morton [...] whether he wants to follow-up hereor in [place] as it is significantly closer to home. [...] Without Contrast; Future - Ambulatory Ref to [facility] (PT/OT/ST); Future Patient Instructions Tremor CT Head Physical therapy DATSCAN-the yes/no Parkinson's disease test Jim Bradford is the navigator Dr. Barb Morton MD Neurology Office Information Jaspreet Qureshi MA Office# Dr. Barb Morton MD Neurology Office Information Jaspreet Qureshi MA Office# Barb Morton MD documented in this [id number] History of Present illness Narrative* Roberto Carlos [...] with simple mask at 10 LPM oxygen. senior games technician called. * Mame Machado PA-C - [...] informed. Mame Machado PA-C documented in this [facility] Work Phone: [phone] 153-603306-16-2021 Hospital Discharge instructions* Instructions* Willis Casillas RN - 05/05/2021 Shower with the Hibiclens product given to you in Pre-Admission Testing. Follow the instructions and wear clean clothes to bed and clean linen on the bed the night before surgery. Follow the instructions and shower the morning of surgery and wear clean, comfortable clothes to the hospital. Please bring your [employer] Surgical Information folder on the day of [...] call your surgeon. You may use the [facility] parking located at the main entrance on [address] and take the H elevator to the first floor for same day surgery. Take a left after exiting the elevator and check in at the desk. * Attachments The following attachments cannot be sent through Care Everywhere. * Laminotomy and Laminectomy: General Info (Zambian) documented in this encounterSUMMA Work Phone: Discharge summary Author Surya Dumont [facility] Note Date/Time April 09, 2025 12:55 pm [facility] Medical Records Department [address] [place] [address] Emergency Department Summary 04/09/25 MR#: [id number] Acct: [id number] Name: LUIS ARMANDO GRIFFITH Rep #:[id number] [...] take blood thinners. Tetanus Immunization: <5 years [facility] Medical History Parkinson's disease Right bundle [...] change from the prior exam. Reading Location: [facility] Cervical Spine CT 04/09/25 11:34 IMPRESSION: 1. No acute fracture. 2. Degenerative changes of the cervical spine as described. Reading Location: [facility] Discharge Plan Triage Chief Complaint: Head Injury ED Provider: Surya Dumont Dx/Rx/DC Orders Clinical Impression: Fall, Laceration of scalp Instructions: ED Head Injury (Adult), ED Laceration Scalp Stitches or [place] Prescriptions: No Action pravastatin 80 mg tablet [...] wound, new or worsening symptoms. Print Language: Zambian Disposition Disposition: Home, Self Care What to do if you have Problems For any increased pain, shortness of breath, bleeding, nausea or vomiting, chestpain, or any unexpected problems, contact your Primary Care Provider. Call [facility] ([phone]) or report to the closest Emergency Room. Call 911 if necessary. 04/09/25 1255 <Electronically signed by Surya Dumont MD> Cosigner Signature (if applicable): CC: Dr. Ja Cooley MD ~ Signed [facility] Work Phone: Discharge summary Author [facility] Note Date/Time June 09, 2025 4:11 pm [facility] Medical Records Department [address] [place] [address] Instructions for Home/Discharge Instructions 06/09/25 1610 MR#: [id number] Acct: [id number] Name: LUIS ARMANDO GRIFFITH Rep #:[id number] [...] MD; Dr. Daphnie Narayanan MD ~ Signed [facility] Work Phone: Evaluation note* Diagnosis Pre-op testing- Primary Preoperative examination, unspecified Abnormal EKG Nonspecific abnormal electrocardiogram (ECG) (EKG) Shortness of breath documented in this encounter [facility] Work Phone: Evaluation note* Diagnosis Abnormal electrocardiogram (ECG) (EKG) Shortness of breath Pre-op testing Preoperative examination, unspecified Abnormal EKG Nonspecific abnormal electrocardiogram (ECG) (EKG) documented in this encounter [facility] Work Phone: Evaluation note* Diagnosis Tremor, essential- Primary Essential and other specified forms of tremor documented in this encounter [facility] note* Diagnosis Tremor- Primary Abnormal involuntary movements documented in this encounter [facility] note* Diagnosis Tremor Abnormal involuntary movements Impaired mobility and activities of daily living Impairment of balance documented in this encounter [facility] note* Diagnosis Parkinson's disease (HCC)- Primary Paralysis agitans documented in this encounter [facility] noteNo assessment information availableWWexner Medical Center Work Phone: Evaluation note* Diagnosis Parkinsonism, unspecified Parkinsonism type (HCC)- Primary Essential tremor Essential and other specified forms of tremor Dysphagia, unspecified type Gait instability Abnormality of gait documented in this encounter [facility] note* Diagnosis Parkinsonism, unspecified Parkinsonism type (HCC)- Primary Dysphagia, oropharyngeal phase Dysarthria documented in this encounter [facility] note* Diagnosis Parkinson disease (HCC)- Primary Paralysis agitans documented in this encounter [facility] note* Diagnosis Gait instability- Primary Abnormality of gait Parkinsonism, unspecified Parkinsonism type (HCC) Dysphasia Other speech disturbance Oropharyngeal dysphagia Dysphagia, oropharyngeal phase Decreased activities of daily living (ADL) documented in this encounter [facility] note* Diagnosis Onset Date Resolution Status Essential (primary) hypertension chronic Paroxysmal atrial fibrillation [facility] Work Phone: Evaluation note* Diagnosis Parkinsonism, unspecified Parkinsonism type (HCC)- Primary Depression, unspecified depression type Anxiety Anxiety state, unspecified Orthostatic lightheadedness Dizziness and giddiness Dysphagia, unspecified type documented in this encounter [facility] note* Diagnosis Parkinsonism, unspecified Parkinsonism type (HCC)- Primary Gait instability Abnormality of gait Leg weakness, bilateral Other musculoskeletal symptoms referable to limbs Imbalance Abnormality of gait documented in this encounter [facility] note* Diagnosis MELISSA (generalized anxiety disorder)- Primary Generalized anxiety disorder Depression, unspecified depression type Parkinsonism, unspecified Parkinsonism type (HCC) documented in this encounter [facility] note* Diagnosis Parkinsonism, unspecified Parkinsonism type (HCC)- Primary Gait instability Abnormality of gait Leg weakness, bilateral Other musculoskeletal symptoms referable to limbs Imbalance Abnormality of gait documented in this encounter [facility] note* Diagnosis Parkinsonism, unspecified Parkinsonism type (HCC)- Primary Orthostatic hypotension Anxiety Anxiety state, unspecified documented in this encounter [facility] note* Diagnosis Onset Date Resolution Status Parkinsons acute Essential (primary) hypertension chronic HLD (hyperlipidemia) chronic Paroxysmal atrial fibrillation chronic [facility] Work Phone: Evaluation note* Diagnosis Onset Date Resolution Status Polyneuropathy acute Abnormality of gait and mobility chronic Dementia chronic Parkinson's disease chronic Essential (primary) hypertension chronic HLD (hyperlipidemia) chronic Paroxysmal atrial fibrillation chronic [facility] Work Phone: Evaluation note* Diagnosis Onset Date Resolution Status Abnormality of gait and mobility chronic Dementia chronic Parkinson's disease chronic Polyneuropathy chronic Fatigue noneactive [facility] Work Phone: Evaluation note* Diagnosis Onset Date Resolution Status Diplopia acute Right abducens nerve palsy a cute Abnormality of gait and mobility chronic Dementia chronic Parkinson's disease chronic Polyneuropathy chronic [facility] Work Phone: Evaluation note* Diagnosis Facial laceration, initial encounter- Primary Fall, initial encounter Open fracture of nasal bone, initial encounter [facility] Work Phone: Hospital Discharge instructions Additional Instructions Leave boot on until you [facility] Work Phone: Hospital Discharge instructionsAdditional Instructions Gpeu-gdc-lztniyz medications like Tylenol or ibuprofen as needed for pain. Have sutures removed in 5 days. Look for signs of infection including fever, increased redness to area, drainage of pus from wound. Return with new or worsening symptoms.[facility] Work Phone: Hospital Discharge instructionsAdditional Instructions Ice all sore areas. Tylenol for pain. Keep the wounds on his forehead and right knee clean. Clean daily with soap and water. Apply antibiotic ointment to prevent infection.[facility] Work Phone: Hospital Discharge instructionsAdditional Instructions Take your diabetic medications as previously directed. Tylenol or ibuprofen as needed for pain. Follow-up with your primary care provider. Return with new or worsening symptoms.[facility] Work Phone: Reason for referral (narrative)No reason for referral information availableWWexner Medical Center Work Phone: Reason for Referral Status Reason Specialty Diagnoses / Procedures Re ferred By Contact Referred To Contact Open Cardiology Diagnoses Pre-op testing Abnormal EKG Shortness of breath Procedures ECHO Pharmacological Stress Test Raeann Holland, ONLINE MERCHANDISING COORDINATOR - GENERAL PARTNER 1 [facility] [address] [place] [address] Specialty Diagnoses / Procedures Referred By Contac t Referred To Contact Neurology Diagnoses Tremor, essential Patricia Mcgowan MD [address] [facility] [address] [place] [address] Barb Morton MD [address] [place] [address] [place] [address] Referral ID Status Reason Start Date Expiration Date V isits Requested Visits Authorized [id number] Pending Review 09/27/2021 09/27/2022 1 1 Specialty Diagnoses / Procedures Referred By Contac t Referred To Contact Rehabilitation Diagnoses Tremor Barb Morton MD [address] [place] [address] [place] [address] Referral ID Status Reason Start Date Expiration Date V isits Requested Visits Authorized [id number] Authorized 10/05/2021 10/05/2022 1 1 Specialty Diagnoses / Procedures Referred By Contac t Referred To Contact Radiology Diagnoses Tremor Procedures CT Head Or Brain Without Contrast Barb Morton MD [address] [place] [address] [place] [address] Referral ID Status Reason Start Date Expiration Date V isits Requested Visits Authorized [id number] New Request 10/05/2021 10/05/2022 1 1 Specialty Diagnoses / Procedures Referred By Contac t Referred To Contact Radiology Diagnoses Tremor Procedures NM Brain Datscan SPECT CT Single Area Single Day Barb Morton MD [address] [facility] [address] [place] [address] Nuclear Medicine [address] [place] [address] Referral ID Status Reason Start Date Expiration Date V isits Requested Visits Authorized [id number] Pending Review 10/05/2021 10/05/2022 4 4 Specialty Diagnoses / Procedures Referred By Contac t Referred To Contact Diagnoses Parkinsonism, unspecified Parkinsonism type (HCC) Procedures PROVIDER ORDERED FOLLOW UP OFFICE/OUTPATIENT [facility] 60-74 MINUTES Jaylyn Nieves MD [address] [address] Referral ID Status Reason Start Date Expiration Date Visits Requested Visits Authorized [id number] Authorized PCP Requested Referral 03/17/2022 06/15/2022 1 1 Specialty Diagnoses / Procedures Referred By Contac t Referred To Contact Neurology / NEUROLOGICAL [place] Diagnoses Parkinsonism, unspecified Parkinsonism type (HCC) Procedures CONSULT TO [facility] OFFICE/OUTPATIENT [facility] 60-74 MINUTES Jaylyn Nieves MD [address] [address] Referral ID Status Reason Start Date Expiration Date Visits Requested Visits Authorized [id number] Authorized PCP Requested Referral 03/17/2022 03/17/2023 1 1 Specialty Diagnoses / Procedures Referred By Contac t Referred To Contact [facility] Diagnoses Parkinsonism, unspecified Parkinsonism type (HCC) Gait instability Procedures CONSULT TO PHYSICAL THERAPY PHYSICAL THERAPY EVALUATION HIGH COMPLEX 45 MINS Jaylyn Nieves MD [address] [address] Referral ID Status Reason Start Date Expiration Date Visits Requested Visits Authorized [id number] Authorized PCP Requested Referral Auto-Generate d Referral 03/29/2022 03/29/2023 99 99 Specialty Diagnoses / Procedures Referred By Contac t Referred To Contact [facility] Diagnoses Parkinsonism, unspecified Parkinsonism type (HCC) Gait instability Decreased activities of daily living (ADL) Procedures CONSULT TO CYBER FORENSIC SPECIALIST OCCUPATIONAL THERAPY EVAL HIGH COMPLEX 60 MINS Jaylyn Nieves MD [address] [address] Referral ID Status Reason Start Date Expiration Date Visits Requested Visits Authorized [id number] Authorized PCP Requested Referral Auto-Generate d Referral 03/29/2022 03/29/2023 99 99 Specialty Diagnoses / Procedures Referred By Contac t Referred To Contact Diagnoses Parkinsonism, unspecified Parkinsonism type (HCC) Oropharyngeal dysphagia Procedures CONSULT TO SPEECH THERAPY Jaylyn Nieves MD [address] [address] Referral ID Status Reason Start Date Expiration Date Visits Requested Visits Authorized [id number] Authorized PCP Requested Referral 03/29/2022 06/27/2022 3 3 Referral ID Status Reason Start Date Expiration Date Visits Requested Visits Authorized [id number] Authorized PCP Requested Referral 08/04/2023 1 1 Specialty Diagnoses / Procedures Referred By Contac t Referred To Contact [facility] Diagnoses Parkinsonism, unspecified Parkinsonism type (HCC) Procedures CONSULT TO PHYSICAL THERAPY PHYSICAL THERAPY EVALUATION HIGH COMPLEX 45 MINS Jaylyn Nieves MD [address] [address] Referral ID Status Reason Start Date Expiration Date Visits Requested Visits Authorized [id number] Authorized PCP Requested Referral Auto-Generate d Referral 08/04/2022 08/04/2023 99 99 Specialty Diagnoses / Procedures Referred By Contac t Referred To Contact Diagnoses Parkinsonism, unspecified Parkinsonism type (HCC) Depression, unspecified depression type Procedures CONSULT TO PSYCHIATRY OFFICE/OUTPATIENT [facility] 60-74 MINUTES Jaylyn Nieves MD [address] [address] Referral ID Status Reason Start Date Expiration Date Visits Requested Visits Authorized [id number] Pending Review PCP Requested Referral 08/04/2022 08/04/2023 1 1 Specialty Diagnoses / Procedures Referred By Contac t Referred To Contact Diagnoses Depression, unspecified depression type Procedures PROVIDER ORDERED FOLLOW UP OFFICE/OUTPATIENT [facility] 60-[place] [address] [place] [address] Referral ID Status Reason Start Date Expiration Date Visits Requested Visits Authorized [id number] Authorized PCP Requested Referral 11/28/2022 09/02/2023 1 1 Specialty Diagnoses / Procedures Referred By Contac t Referred To Contact [facility] Diagnoses Parkinsonism, unspecified Parkinsonism type (HCC) Procedures CONSULT TO CYBER FORENSIC SPECIALIST OCCUPATIONAL THERAPY EVAL HIGH COMPLEX 60 MINS Gary Ruiz, ALEN.GENERAL PARTNER [address] [place] [address] [facility] [address] [address] Referral ID Status Reason Start Date Expiration Date Visits Requested Visits Authorized [id number] Authorized PCP Requested Referral Auto-Generate d Referral 12/12/2022 12/12/2023 99 99 Specialty Diagnoses / Procedures Referred By Contac t Referred To Contact [facility] Diagnoses Parkinsonism, unspecified Parkinsonism type (HCC) Procedures CONSULT TO PHYSICAL THERAPY PHYSICAL THERAPY EVALUATION HIGH COMPLEX 45 MINS Gary Ruiz APRN.GENERAL PARTNER [address] [place] [address] [facility] [address] [address] Referral ID Status Reason Start Date Expiration Date Visits Requested Visits Authorized [id number] Authorized PCP Requested Referral Auto-Generate d Referral 12/12/2022 12/12/2023 99 99 Advance Directives No Advanced Directives Records FoundDocuments on File Type Date Recorded 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 ACP-Advance Directive ACP-Power of Mgmt Analyst Latest Code Status on File Code Status Date Activated Date Inactivated Comments Full Code 04/17/2018 6:13 AM 04/17/2018 1:26 PM Documents on File Type Date Recorded 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 ACP-Advance Directive ACP-Power of Mgmt Analyst Latest Code Status on File Code Status Date Activated Date Inactivated Comments Full Code 05/19/2021 6:48 AM Full Code 04/17/2018 6:13 AM 04/17/2018 1:26 PM Documents on File Type Date Recorded 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 Advance Directives and Living Will Documents on File Type Date Recorded 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 Advance Directives and Living Will Documents on File Type Date Recorded 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 Advance Directives and Livin g Will 11/01/2021 10:44 AM Advance Directive Response Recorded Date/ Time Living Will Yes January 28, 2022 2:22am Power of Mgmt Analyst Yes January 28 2:22am Advance Directive Response Recorded Date/ Time Name of Medical Power of Mgmt Analyst BRENNEN GRIFFITH ( ) January 28, 2022 2:22am Living Will Yes January 28, 2022 2:22am Power of Mgmt Analyst Yes January 28 2:22am Advance Directive Response Recorded Date/ Time Living Will Yes January 28, 2022 1:22am Power of Mgmt Analyst Yes January 28 1:22am Advance Directive Response Recorded Date/ Time Name of Medical Power of Mgmt Analyst February 11, 2023 12:56pm Living Will Yes February 11, 2023 12:56pm Power of Mgmt Analyst Yes February 11 12:56pm Advance Directive Response Recorded Date/ Time Living Will Yes February 11, 2023 12:56pm Power of Mgmt Analyst Yes February 11 12:56pm Advance Directive Response Recorded Date/ Time Living Will Yes February 11, 2023 11:56am Power of Mgmt Analyst Yes February 11 11:56am Advance Directive Response Recorded Date/ Time Living Will Yes February 11, 2023 12:56pm Power of Mgmt Analyst Yes February 11 12:56pm Living Will Yes October 12 12:40pm Power of Mgmt Analyst Yes October 12, 2024 12:40pm Name of Medical Power of Mgmt Analyst brennen griffith October 12, 2024 12:40pm Living Will Yes December 05 6:16pm Power of Mgmt Analyst Yes December 05, 2024 6:16pm Name of Medical Power of Mgmt Analyst BRENNEN GRIFFITH December 05, 2024 6:16pm Advance Directive Response Recorded Date/ Time Living Will Yes February 11, 2023 12:56pm Do you have a Healthcare Power of Mgmt Analyst? Yes February 11, 2023 12:56pm Living Will Yes December 05 6:16pm Do you have a Healthcare Power of Mgmt Analyst? Yes December 05, 2024 6:16pm Name of Medical Power of Mgmt Analyst BRENNEN GRIFFITH December 05, 2024 6:16pm Living Will No February 14, 2025 9:21pm Do you have a Healthcare Power of Mgmt Analyst? No February 14, 2025 9:21pm Advance Directive Response Recorded Date/ Time Living Will Yes February 11, 2023 12:56pm Do you have a Healthcare Power of Mgmt Analyst? Yes February 11, 2023 12:56pm Living Will No February 14, 2025 9:21pm Do you have a Healthcare Power of Mgmt Analyst? No February 14, 2025 9:21pm Advance Directive Response Recorded Date/ Time Living Will Yes February 11, 2023 12:56pm Do you have a Healthcare Power of Mgmt Analyst? Yes February 11, 2023 12:56pm Living Will No February 14, 2025 9:21pm Do you have a Healthcare Power of Mgmt Analyst? No February 14, 2025 9:21pm Do you have a Healthcare Power of Mgmt Analyst? Yes April 09, 2025 11:28am Healthcare Agents on File Name Relationship [facility] Brennen Griffith Spouse [facility]ate Health Care Agent Advance Directive Response Recorded Date/ Time Living Will No February 14, 2025 9:21pm Do you have a Healthcare Power of Mgmt Analyst? No February 14, 2025 9:21pm Do you have a Healthcare Power of Mgmt Analyst? Yes April 09, 2025 11:28am Do you have a Healthcare Power of Mgmt Analyst? No May 11, 2025 5:51pm Advance Directive Response Recorded Date/ Time Living Will No February 14, 2025 9:21pm Do you have a Healthcare Power of Mgmt Analyst? No February 14, 2025 9:21pm Do you have a Healthcare Power of Mgmt Analyst? Yes April 09, 2025 11:28am Do you have a Healthcare Power of Mgmt Analyst? No May 11, 2025 5:51pm Do you have a Healthcare Power of Mgmt Analyst? Yes June 08, 2025 6:06pm Advance Directive Response Recorded Date/ Time Living Will No February 14, 2025 9:21pm Do you have a Healthcare Power of Mgmt Analyst? No February 14, 2025 9:21pm Do you have a Healthcare Power of Mgmt Analyst? Yes April 09, 2025 11:28am Do you have a Healthcare Power of Mgmt Analyst? No May 11, 2025 5:51pm Do you have a Healthcare Power of Mgmt Analyst? Yes June 08, 2025 11:41pm Advance Directive Response Recorded Date/ Time Living Will No February 14, 2025 9:21pm Do you have a Healthcare Power of Mgmt Analyst? No February 14, 2025 9:21pm Do you have a Healthcare Power of Mgmt Analyst? Yes April 09, 2025 11:28am Do you have a Healthcare Power of Mgmt Analyst? No May 11, 2025 5:51pm Do you have a Healthcare Power of Mgmt Analyst? No June 12, 2025 10:49am Do you have a Healthcare Power of Mgmt Analyst? Yes June 08, 2025 11:41pm Advance Directive Response Recorded Date/ Time Do you have a Healthcare Power of Mgmt Analyst? Yes April 09, 2025 11:28am Do you have a Healthcare Power of Mgmt Analyst? No May 11, 2025 5:51pm Do you have a Healthcare Power of Mgmt Analyst? No June 12, 2025 10:49am Do you have a Healthcare Power of Mgmt Analyst? Yes June 19, 2025 7:26pm Name of Medical Power of Mgmt Analyst Brennen Griffith June 19, 2025 7:26pm Do you have a Healthcare Power of Mgmt Analyst? Yes June 08, 2025 11:41pm Advance Directive Response Recorded Date/ Time Living Will Yes February 11, 2023 12:56pm Do you have a Healthcare Power of Mgmt Analyst? Yes February 11, 2023 12:56pm Do you have a Healthcare Power of Mgmt Analyst? Yes April 09, 2025 11:28am Do you have a Healthcare Power of Mgmt Analyst? No May 11, 2025 5:51pm Do you have a Healthcare Power of Mgmt Analyst? No June 12, 2025 10:49am Do you have a Healthcare Power of Mgmt Analyst? Yes June 19, 2025 7:26pm Name of Medical Power of Mgmt Analyst Brennen Griffith June 19, 2025 7:26pm Do you have a Healthcare Power of Mgmt Analyst? Yes June 08, 2025 11:41pm Advance Directive Response Recorded Date/ Time Living Will Yes February 11, 2023 12:56pm Do you have a Healthcare Pow er of Mgmt Analyst? Yes February 11, 2023 12:56pm Do you have a Healthcare Pow er of Mgmt Analyst? Yes April 09, 2025 11:28am Do you have a Healthcare Pow er of Mgmt Analyst? No May 11, 2025 5:51pm Do you have a Healthcare Pow er of Mgmt Analyst? No June 12, 2025 10:49am Do you have a Healthcare Pow er of Mgmt Analyst? Yes June 19, 2025 7:26pm Name of Medical Power of Mgmt Analyst Brennen Griffith June 19, 2025 7:26pm Do you have a Healthcare Pow er of Mgmt Analyst? Yes June 08, 2025 11:41pm Do you have a Healthcare Pow er of Mgmt Analyst? Yes July 07, 2025 4:05am Name of Medical Power of Mgmt Analyst sabrina valenzuela daughter July 07, 2025 4:05am Advance Directive Response Recorded Date/ Time Living Will Yes February 11, 2023 12:56pm Do you have a Healthcare Pow er of Mgmt Analyst? Yes February 11, 2023 12:56pm Do you have a Healthcare Pow er of Mgmt Analyst? Yes April 09, 2025 11:28am Do you have a Healthcare Pow er of Mgmt Analyst? No May 11, 2025 5:51pm Do you have a Healthcare Pow er of Mgmt Analyst? No June 12, 2025 10:49am Do you have a Healthcare Pow er of Mgmt Analyst? Yes June 19, 2025 7:26pm Name of Medical Power of Mgmt Analyst Brennen Griffith June 19, 2025 7:26pm Do you have a Healthcare Pow er of Mgmt Analyst? Yes June 08, 2025 11:41pm Do you have a Healthcare Pow er of Mgmt Analyst? Yes July 07, 2025 4:05am Name of Medical Power of Mgmt Analyst sabrina cain July 07, 2025 4:05am Do you have a Healthcare Pow er of Mgmt Analyst? No July 12, 2025 6:07pm Summary Purpose Family History No Family History [...] 2pm fall July 07, 2025 3: 54am head injury July 12, 2025 6: 02pm Additional Source Comments Source Comments (unrecognize d section and content) In the event this informatio n is protected by the Federal Confidentiality of Alcohol and Drug Abuse Patient Records regulations: The Federal rules restrict any use of the information to criminally investigate or prosecute any alcohol or drug abuse patient.[facility] the event this information is protected by the Federal Confidentiality of Alcohol and Drug Abuse Patient Records regulations: The Federal rules restrict any use of the information to criminally investigate or prosecute any alcohol or drug abuse patient.[facility] CampusIn the event this information is protected by the Federal Confidentiality of Alcohol and Drug Abuse Patient Records regulations: The Federal rules restrict any use of the information to criminally investigate or prosecute any alcohol or drug abuse patient.[facility] CampusIn the event this information is protected by the Federal Confidentiality of Alcohol and Drug Abuse Patient Records regulations: The Federal rules restrict any use of the information to criminally investigate or prosecute any alcohol or drug abuse patient.[facility] CampusIn the event this information is protected by the Federal Confidentiality of Alcohol and Drug Abuse Patient Records regulations: The Federal rules restrict any use of the information to criminally investigate or prosecute any alcohol or drug abuse patient.[facility] CampusIn the event this information is protected by the Federal Confidentiality of Alcohol and Drug Abuse Patient Records regulations: The Federal rules restrict any use of the information to criminally investigate or prosecute any alcohol or drug abuse patient.[facility] CampusIn the event this information is protected by the Federal Confidentiality of Alcohol and Drug Abuse Patient Records regulations: The Federal rules restrict any use of the information to criminally investigate or prosecute any alcohol or drug abuse patient.[facility] CampusIn the event this information is protected by the Federal Confidentiality of Alcohol and Drug Abuse Patient Records regulations: The Federal rules restrict any use of the information to criminally investigate or prosecute any alcohol or drug abuse patient.[facility] CampusIn the event this information is protected by the Federal Confidentiality of Alcohol and Drug Abuse Patient Records regulations: The Federal rules restrict any use of the information to criminally investigate or prosecute any alcohol or drug abuse patient.[facility] CampusIn the event this information is protected by the Federal Confidentiality of Alcohol and Drug Abuse Patient Records regulations: The Federal rules restrict any use of the information to criminally investigate or prosecute any alcohol or drug abuse patient.[facility] CampusIn the event this information is protected by the Federal Confidentiality of Alcohol and Drug Abuse Patient Records regulations: The Federal rules restrict any use of the information to criminally investigate or prosecute any alcohol or drug abuse patient.[facility] CampusIn the event this information is protected by the Federal Confidentiality of Alcohol and Drug Abuse Patient Records regulations: The Federal rules restrict any use of the information to criminally investigate or prosecute any alcohol or drug abuse patient.[facility] CampusIn the event this information is protected by the Federal Confidentiality of Alcohol and Drug Abuse Patient Records regulations: The Federal rules restrict any use of the information to criminally investigate or prosecute any alcohol or drug abuse patient.[facility] CampusIn the event this information is protected by the Federal Confidentiality of Alcohol and Drug Abuse Patient Records regulations: The Federal rules restrict any use of the information to criminally investigate or prosecute any alcohol or drug abuse patient.[facility] CampusIn the event this information is protected by the Federal Confidentiality of Alcohol and Drug Abuse Patient Records regulations: The Federal rules restrict any use of the information to criminally investigate or prosecute any alcohol or drug abuse patient.[facility] CampusIn the event this information is protected by the Federal Confidentiality of Alcohol and Drug Abuse Patient Records regulations: The Federal rules restrict any use of the information to criminally investigate or prosecute any alcohol or drug abuse patient.[facility] CampusIn the event this information is protected by the Federal Confidentiality of Alcohol and Drug Abuse Patient Records regulations: The Federal rules restrict any use of the information to criminally investigate or prosecute any alcohol or drug abuse patient.[facility] CampusIn the event this information is protected by the Federal Confidentiality of Alcohol and Drug Abuse Patient Records regulations: The Federal rules restrict any use of the information to criminally investigate or prosecute any alcohol or drug abuse patient.[facility] CampusIn the event this information is protected by the Federal Confidentiality of Alcohol and Drug Abuse Patient Records regulations: The Federal rules restrict any use of the information to criminally investigate or prosecute any alcohol or drug abuse patient.[facility] CampusIn the event this information is protected by the Federal Confidentiality of Alcohol and Drug Abuse Patient Records regulations: The Federal rules restrict any use of the information to criminally investigate or prosecute any alcohol or drug abuse patient.[facility] Reason for Visit (unrecogniz ed section and content) Reason Comments Parkinsonism, unspecified Parkinsonism t ype (HCC) Specialty Diagnoses / Procedures Referred By Contac t Referred To Contact Diagnoses Parkinsonism, unspecified Parkinsonism type ([facility]) Procedures PROVIDER ORDERED FOLLOW UP OFFICE/OUTPATIENT NEW HIGH MDM 60-74 MINUTES Jaylyn Nieves MD [address] [facility] [address] [place] [address] Referral ID Status Reason Start Date Expiration Date V isits Requested Visits Authorized [id number] Closed PCP Requested Referral 11/03/2022 08/04/2023 1 1 Status Reason Specialty Diagnoses / Procedures Re ferred By Contact Referred To Contact Open Cardiology Diagnoses Pre-op testing Abnormal EKG Shortness of breath Procedures ECHO Pharmacological Stress Test Raeann Holland, ONLINE MERCHANDISING COORDINATOR - GENERAL PARTNER 1 [facility] [place] [address] [place] [address] Reason Comments Consult Ref by: PATRICIA MCGOWAN 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,essential ([facility] interest - saw us on the website), Tremors Dx; ET approx 1 year Specialty Diagnoses / Procedures Referred By Michel higginbotham Referred To Contact Neurology Diagnoses Tremor, essential Patricia Mcgowan MD [address] [facility] [address] [place] [address] Barb Morton MD [address] [place] [address] [place] [address] Referral ID Status Reason Start Date Expiration Date Visits Re quested Visits Authorized [id number] Closed 09/27/2021 09/27/2022 1 1 Reason Comments Physical Therapy Neuro Specialty Diagnoses / Procedures Referred By Michel higginbotham Referred To Contact Rehabilitation Diagnoses Tremor Barb Morton MD [address] [place] [address] [place] [address] [facility] [address] [place] [address] Referral ID Status Reason Start Date Expiration Date V isits Requested Visits Authorized [id number] Authorized 10/05/2021 10/05/2022 1 199 Reason Onset Date Comments Medication Refill 11/05/2021 Reason Onset Date Comments Medication Refill 11/09/2021 Reason Comments Follow Up Parkinson's Reason Comments Upcoming Appointment Pre-rooming phone c all Reason Comments Speech Evaluation Specialty Diagnoses / Procedures Referred By Michel higginbotham Referred To Contact Speech-Language Pathologist / SPEECH THERAPY Diagnoses PD Clinic Procedures [facility] Jaylyn Nieves MD [address] [address] Amaya Deleon, [facility] [address] [place] [address] Referral ID Status Reason Start Date Expiration Date V isits Requested Visits Authorized [id number] Authorized 03/29/2022 06/27/2022 99 99 Reason Comments PT Eval Patient Education Specialty Diagnoses / Procedures Referred By Contac t Referred To Contact Physical Therapy / PHYSICAL THERAPY Diagnoses PD Clinic Procedures [facility] Jaylyn Nieves MD [address] [address] [place] Medel, PT, DPT [address] [place] [address] Referral ID Status Reason Start Date Expiration Date V isits Requested Visits Authorized [id number] Authorized 03/29/2022 06/27/2022 99 99 Specialty Diagnoses / Procedures Referred By Contac t Referred To Contact Neurology / NEUROLOGICAL [place] Diagnoses Parkinsonism, unspecified Parkinsonism type (HCC) Procedures CONSULT TO [facility] OFFICE/OUTPATIENT [facility] 60-74 MINUTES Jaylyn Nieves MD [address] [address] [facility] [address] [place] [address] Referral ID Status Reason Start Date Expiration Date V isits Requested Visits Authorized [id number] Closed PCP Requested Referral 03/17/2022 03/17/2023 1 1 Reason Onset Date Comments Refill Request 05/18/2022 Reason Comments Appointment Earlier appointment request d/t worsening symptoms Reason Comments Follow Up Referral ID Status Reason Start Date Expiration Date V isits Requested Visits Authorized [id number] Closed PCP Requested Referral 03/17/2022 06/15/2022 1 1 Reason Comments Physical Therapy Specialty Diagnoses / Procedures Referred By Contac t Referred To Contact [facility] Diagnoses Parkinsonism, unspecified Parkinsonism type (HCC) Procedures CONSULT TO PHYSICAL THERAPY PHYSICAL THERAPY EVALUATION HIGH COMPLEX 45 MINS aJylyn Nieves MD [address] [address] [facility] [address] [place] [address] Referral ID Status Reason Start Date Expiration Date Visits Requested Visits Authorized [id number] Authorized PCP Requested Referral Auto-Generate d Referral 08/04/2022 08/04/2023 99 99 Reason Comments New Patient Specialty Diagnoses / Procedures Referred By Contac t Referred To Contact Diagnoses Parkinsonism, unspecified Parkinsonism type (HCC) Depression, unspecified depression type Procedures CONSULT TO PSYCHIATRY OFFICE/OUTPATIENT NEW HIGH MDM 60-74 MINUTES Jaylyn Nieves MD [address] [address] Referral ID Status Reason Start Date Expiration Date Visits Requested Visits Authorized [id number] Pending Review PCP Requested Referral 08/04/2022 08/04/2023 [...] section and content) DATE CREATED AUTHOR 05/13/2021 [facility] DATE CREATED AUTHOR AUTHOR'S ORGANIZ ATION 05/20/2021 [facility] DATE CREATED AUTHOR AUTHOR'S ORGANIZ ATION 12/22/2021 [facility] DATE CREATED AUTHOR AUTHOR'S ORGANIZ ATION 02/18/2023 [facility] DATE CREATED AUTHOR AUTHOR'S ORGANIZ ATION 02/19/2023 [facility] DATE CREATED AUTHOR AUTHOR'S ORGANIZ ATION 04/05/2025 [facility] DATE CREATED AUTHOR AUTHOR'S ORGANIZ ATION 04/18/2025 [facility] DATE CREATED AUTHOR AUTHOR'S ORGANIZ ATION 08/13/2025 [facility] Scheduled Active and Recently Administ ered [...] surgery) 708 (Given - Provid er: Asya Torre, MISAEL) ceFAZolin (ANCEF) 3,000 mg in dextrose 5 % 100 mL IVPB 3,000 mg, Intravenous, WOOD ROOM SUPERVISOR TO O.R., 1 dose, On Mon05/19/21 at [...] surgery) 07 (New Bag - Prov ider: sAya Torre RN) PRN Medication Order 05/17/2021 05/18/2021 [...] Cielo Valverde RN) lidocaine-EPINEPHrine (Xylocaine W/EPI) 1 %-1:466128 injection 10 mL (COMPLETED) 10 mL, Infiltration, [...] Care Teams (unrecognized sec tion and content) Senior Games Technician Relationship Specialty Start Date End Date Patricia Mcgowan MD [address] [facility] [address] [place] [address] PCP - General Family Medicine 10/28/21 Senior Games Technician Relationship Specialty Start Date End Date Patricia Mcgowan MD [address] [facility] [address] [place], [place] [address] PCP - General Family Medicine 10/28/21 Senior Games Technician Relationship Specialty Start Date End Date Patricia Mcgowan MD [address] [facility] [address] [place], [place] [address] PCP - General Family Medicine 10/28/21 Senior Games Technician Relationship Specialty Start Date End Date Patricia Mcgowan MD [address] [facility] [address] [place] [address] PCP - General Family Medicine 10/28/21 Senior Games Technician Relationship Specialty Start Date End Date Patricia Mcogwan MD [address] [facility] [address] [place] [address] PCP - General Family Medicine 10/28/21 Senior Games Technician Relationship Specialty Start Date End Date Patricia Mcgowan MD [address] [place] [address] PCP - General Family Medicine 10/28/21 Senior Games Technician Relationship Specialty Start Date End Date Patricia Mcgowan MD [address] [place] [address] PCP - General Family Medicine 10/28/21 Senior Games Technician Relationship Specialty Start Date End Date Ja Cooley [address] [place] [address] PCP - General Family Practice 03/17/22 Senior Games Technician Relationship Specialty Start Date End Date Silverdelia Ja Thakkar [address] [place] [address] PCP - General Family Practice 03/17/22 Senior Games Technician Relationship Specialty Start Date End Date Anastacia Ja Thakkar [address] [place] [address] PCP - General Family Practice 03/17/22 Senior Games Technician Relationship Specialty Start Date End Date Rejimaureendelia Ja Thakkar [address] [place] [address] PCP - General Family Practice 03/17/22 Senior Games Technician Relationship Specialty Start Date End Date Anastacia Ja Thakkar [address] [place] [address] PCP - General Family Practice 03/17/22 Senior Games Technician Relationship Specialty Start Date End Date Rejipriti Ja Thakkar [address] [place] [address] PCP - General Family Practice 03/17/22 Senior Games Technician Relationship Specialty Start Date End Date RejiJa marcos [address] [place] [address] PCP - General Family Practice 03/17/22 Senior Games Technician Relationship Specialty Start Date End Date Ja Cooley [address] [place] [address] PCP - General Family Practice 03/17/22 Senior Games Technician Relationship Specialty Start Date End Date Ja Cooley [address] [place] [address] PCP - General Family Practice 03/17/22 Senior Games Technician Relationship Specialty Start Date End Date Ja Cooley [address] [facility] [address] [place] [address] PCP - General Family Medicine 03/17/22 Senior Games Technician Relationship Specialty Start Date End Date Ja Cooley [address] [place] [address] PCP - General Family Medicine 03/17/22 Senior Games Technician Relationship Specialty Start Date End Date Ja Cooley [address] [facility] [address] [place] [address] PCP - General Family Medicine 03/17/22 Erika May, ONLINE MERCHANDISING COORDINATOR.GENERAL PARTNER [address] [place] [address] Specialty Tank Erector Neurology 09/07/22 Senior Games Technician Relationship Specialty Start Date End Date Ja Cooley [address] [facility] [address] [place] [address] PCP - General Family Medicine 03/17/22 Erika May, ONLINE MERCHANDISING COORDINATOR.GENERAL PARTNER [address] [place] [address] Specialty Tank Erector Neurology 09/07/22 Senior Games Technician Relationship Specialty Start Date End Date Ja Cooley [address] [place] [address] PCP - General Family Medicine 03/17/22 Erika May, ONLINE MERCHANDISING COORDINATOR.GENERAL PARTNER [address] [facility] [place] [address] Specialty Tank Erector Neurology 09/07/22 Senior Games Technician Relationship Specialty Start Date End Date Ja Cooley [address] [facility] [address] [place] [address] PCP - General Family Medicine 03/17/22 Erika May, ONLINE MERCHANDISING COORDINATOR.GENERAL PARTNER [address] [address] Specialty Tank Erector Neurology 09/07/22 Tatiana Rodas ONLINE MERCHANDISING COORDINATOR.GENERAL PARTNER [address] [place] [address] Specialty Tank Erector Neurology 12/05/22 Senior Games Technician Relationship Specialty Start Date End Date Ja Cooley [address] [facility] [address] [place] [address] PCP - General Family Medicine 03/17/22 Erika May, ONLINE MERCHANDISING COORDINATOR.GENERAL PARTNER [address] [place] [address] Specialty Tank Erector Neurology 09/07/22 Tatiana Rodas, ONLINE MERCHANDISING COORDINATOR.GENERAL PARTNER [address] [place] [address] Specialty Tank Erector Neurology 12/05/22 Senior Games Technician Relationship Specialty Start Date End Date Ja Cooley [address] [facility] [address] [place] [address] PCP - General Family Medicine 03/17/22 Erika May, ONLINE MERCHANDISING COORDINATOR.GENERAL PARTNER [address] [place] [address] Specialty Tank Erector Neurology 09/07/22 Tatiana Rodas, ONLINE MERCHANDISING COORDINATOR.GENERAL PARTNER [address] [place] [address] Specialty Tank Erector Neurology 12/05/22 Team Status: Active Member Role [...] Dr. Natasha Gregory MD Attending Provider Active Senior Games Technician Relationship Specialty Start Date End Date Ja Cooley [address] [facility] [address] [place] [address] PCP - General Family Medicine 03/17/22 Erika May, ONLINE MERCHANDISING COORDINATOR.GENERAL PARTNER [address] [place] [address] Specialty Tank Erector Neurology 09/07/22 Tatiana Rodas ONLINE MERCHANDISING COORDINATOR.GENERAL PARTNER [address] [place] [address] Specialty Tank Erector Neurology 12/05/22 Team Status: Inactive Member Role Status Dates Dr. Ja Cooley MD Primary Care Provider Active Dr. Osman Farooq MD Emergency Provider Active Senior Games Technician Relationship Specialty Start Date End Date Ja Cooley [address] [facility] [address] [place] [address] PCP - General Family Medicine 03/17/22 Erika May, ONLINE MERCHANDISING COORDINATOR.GENERAL PARTNER [address] [place] [address] Specialty Tank Erector Neurology 09/07/22 Tatiana Rodas ONLINE MERCHANDISING COORDINATOR.GENERAL PARTNER [address] [place] [address] Specialty Tank Erector Neurology 12/05/22 Team Status: Inactive Member Role [...] Provider, Referr ing Provider Active Christel Bae DOOR TRIMMER, DOOR TRIMMER-C Attending Provider Active Team Status: Inactive Member [...] April 09, 2025 End: April 09, 2025 Senior Games Technician Relationship Specialty Start Date End Date Ja Cooley MD Bessie Deleon [facility] [address] [place] [address] PCP - General Family Medicine 04/13/25 Team [...] Status: Inactive Member Role/Relationship Status Dates Dr. aJ Cooley MD Primary [...] Status: Inactive Member Role/Relationship Status Dates Dr. aJ Cooley MD Primary [...] 08, 2025 End: June 09, 2025 Dr. Dapnhie Narayanan MD Attending Provider Active Start: June [...] 2025 End: June 27, 2025 Christel Bae DOOR TRIMMER, DOOR TRIMMER-C Attending Provider Active Start: June 27, 2025 [...] 2025 End: June 24, 2025 Dr. Curt Iasacs MD Attending Provider Active Start: June 24, [...] 2025 End: June 27, 2025 Christel Bae DOOR TRIMMER, DOOR TRIMMER-C Attending Provider Active Start: June 27, 2025 [...] July 07, 2025 End: July 07, 2025 Team Status: Inactive Member Role/Relationship Status Dates Dr. Ja Cooley MD Primary Care Provider Active Start: July 07, 2025 End: July 07, 2025 Dr. Yadiel Deras MD Attending Provider Active S tart: July 07, 2025 End: July 07, 2025 Dr. Yadiel Deras MD Emergency Provider Active S tart: July 07, 2025 End: July 07, 2025 Team Status: Inactive Member Role/Relationship Status Dates Dr. Ja Cooley MD Primary Care Provider Active Start: July 12, 2025 End: July 12, 2025 Surya Dumont MD Emergency Provider Active Star t: July 12, 2025 End: July 12, 2025 Goals (unrecognized section and content) Goals [...] BE BASED ON THE PRIMARY CLINICAL RECORDS. [facility] [employer] [facility]. provides no warranty or guarantee of the accuracy or completeness of information in this document.
[2025-08-22 08:25] LABS: Hematocrit 42.0 % (40-54); Hemoglobin 14.0 g/dL (13.0-16.5); Immature Granulocytes Count 0.050 X10^3/uL (0.0-0.0); Mean Corp Hgb Conc 33.3 g/dL (32-36); Mean Corpuscular Volume 89.4 fL (80-94); Mean Platelet Vol. 10.0 fl (6.2-12.0); NRBC Flagged by Analyzer 0 % (0-5); Platelet Count 254 K/mm3 (150-450); RBC Distribution Width CV 13.2 % (11.6-14.6); RBC Distribution Width SD 43.7 fl (35.1-43.9); Red Blood Count 4.70 M/mm3 (4.6-6.2); White Blood Count 8.5 K/mm3 (4.4-11.0)
[2025-08-22 08:38] LABS: Prothrombin Time (Protime)PT. 14.3 SECONDS (11.7-14.9)
[2025-08-22 08:39] LABS: Partial Thromboplast Time 27.2 Seconds (24.1-36.2)
[2025-08-22 08:45] LABS: AST(SGOT) 14 U/L (<=37); Alanine Aminotransfer ALT/SGPT < 5 U/L (<=46); Albumin, Serum 3.9 g/dL (3.4-4.8); Alkaline Phosphatase 87 U/L (40-129); Anion Gap 11 (5-15); BUN 23 mg/dL (4-19); BUN/Creat Ratio 25.2 RATIO (10-20); Calcium,Total 9.2 mg/dL (7.6-11.0); Carbon Dioxide 25.1 mmol/L (21.0-32.0); Chloride 102 mmol/L (98-108); Estimated Creatinine Clearance 78.16 ml/min (50-250); Globulin 2.6 g/dL (2.2-4.2); Glucose 164 mg/dL (70-99); Potassium 4.1 mmol/L (3.3-5.1)
[2025-08-22 09:10] VITALS: BP 134/71; PULSE 83; RESP 18; TEMP 36.6; O2SAT 97
== END 2025-08-22 09:41 | disposition short-term general hospital (02) ==
PROVIDERS: Emergency Provider Surgery; PCP Family Medicine; Visit Provider Surgery
DX: I62.03 Nontraumatic chronic subdural hemorrhage (principal); G20.A1 Parkinson's disease without dyskinesia, without mention of fluctuations; I48.0 Paroxysmal atrial fibrillation; S02.85XA Fracture of orbit, unspecified, initial encounter for closed fracture; E11.9 Type 2 diabetes mellitus without complications; Z79.4 Long term (current) use of insulin; I10 Essential (primary) hypertension; Z87.891 Personal history of nicotine dependence; E78.5 Hyperlipidemia, unspecified; S00.81XA Abrasion of other part of head, initial encounter; R29.6 Repeated falls; Z79.01 Long term (current) use of anticoagulants; Z79.899 Other long term (current) drug therapy; K21.9 Gastro-esophageal reflux disease without esophagitis; Z79.84 Long term (current) use of oral hypoglycemic drugs; Z96.652 Presence of left artificial knee joint; Z85.828 Personal history of other malignant neoplasm of skin; V00.811A Fall from moving wheelchair (powered), initial encounter
CPT/HCPCS: 70450; 70486; 72125; 80053; 82962; 85025; 85610; 85730; 99285

== ENCOUNTER → 2025-09-18 | Outpatient (CLI) | payer MEDICARE, OTHER, SELFPAY ==
[2025-09-18 15:10] LABS: Hematocrit 40.8 % (40-54); Hemoglobin 13.8 g/dL (13.0-16.5); Immature Granulocytes Count 0.040 X10^3/uL (0.0-0.0); Mean Corp Hgb Conc 33.8 g/dL (32-36); Mean Corpuscular Volume 88.1 fL (80-94); Mean Platelet Vol. 10.4 fl (6.2-12.0); NRBC Flagged by Analyzer 0 % (0-5); Platelet Count 272 K/mm3 (150-450); RBC Distribution Width CV 13.8 % (11.6-14.6); RBC Distribution Width SD 44.1 fl (35.1-43.9); Red Blood Count 4.63 M/mm3 (4.6-6.2); White Blood Count 8.6 K/mm3 (4.4-11.0)
[2025-09-18 15:23] LABS: AST(SGOT) 14 U/L (<=37); Alanine Aminotransfer ALT/SGPT 8 U/L (<=46); Albumin, Serum 4.1 g/dL (3.4-4.8); Alkaline Phosphatase 75 U/L (40-129); Anion Gap 11 (5-15); BUN 25 mg/dL (4-19); BUN/Creat Ratio 31.3 RATIO (10-20); Calcium,Total 9.4 mg/dL (7.6-11.0); Carbon Dioxide 25.2 mmol/L (21.0-32.0); Chloride 103 mmol/L (98-108); Globulin 2.7 g/dL (2.2-4.2); Glucose 173 mg/dL (70-99); Potassium 4.0 mmol/L (3.3-5.1)
== END | disposition home or self-care (01) ==
LOC: MFPLAB 12:34
PROVIDERS: PCP Family Medicine; Visit Provider Family Medicine
DX: E11.9 Type 2 diabetes mellitus without complications (principal)
CPT/HCPCS: 36415; 80053; 83036; 85025

== ENCOUNTER 2025-10-08 04:15 | Emergency (ER) | payer MEDICARE, OTHER, SELFPAY ==
[2025-10-08 04:15] VITALS: BP 152/76; PULSE 92; RESP 18; TEMP 36.3; O2SAT 96; BMI 32.9
--- NOTE | 2025-10-08 04:29 | CT_ITS ---
PROCEDURE: BRAIN/HEAD WITHOUT CONTRAST 10/08/2025 REASON FOR EXAM: FALL / HEAD INJURY TECHNIQUE: Procedure Code: CTBR Modality: CT Procedure: BRAIN/HEAD WITHOUT CONTRAST Coronal and Sagittal reconstruction series were provided. One or more dose reduction techniques were used (e.g., Automated exposure control, adjustment of the mA and/or kV according to patient size, use of iterative reconstruction technique. RADIATION DOSE SUMMARY: CTDlvol: 45 mGy DLP: 829 mGycm COMPARISON: 22-Aug-2025 FINDINGS: Newly developed left cerebral convexity extra-axial acute on top of chronic/subacute subdural hematoma reaching 13 mm in thickness and seen indenting the related cerebral mantle. Bilateral cerebral subcortical and periventricular white matter hypodensities, suggestive of chronic small vessel ischemia. Regan-white matter differentiation is maintained. Unremarkable posterior fossa structures. Dilated ventricular system, cortical sulci and extra-axial CSF spaces. No definite calvarial fractures. No midline shifts or deformity. The osseous structures in the skull base are unremarkable. Paranasal sinuses are unremarkable. Vascular atheromatous calcifications. CT/Brain/Head without Contrast IMPRESSION: Newly developed left cerebral convexity extra-axial acute on top of chronic/sub acute subdural hematoma. Bilateral cerebral microvascular ischemic changes with brain involutional mijares es. Stable. Reading [facility]
--- NOTE | 2025-10-08 04:29 | CT_ITS ---
PROCEDURE: SPINE CERVICAL WITHOUT CONTRAS 10/08/2025 REASON FOR EXAM: FALL TECHNIQUE: Procedure Code: CTSPC Modality: CT Procedure: SPINE CERVICAL WITHOUT CONTRAS Coronal and Sagittal reconstruction series were provided. One or more dose reduction techniques were used (e.g., Automated exposure control, adjustment of the mA and/or kV according to patient size, use of iterative reconstruction technique. RADIATION DOSE SUMMARY: CTDlvol: 25 mGy DLP: 562 mGycm COMPARISON: 22-Aug-2025 FINDINGS: Straightened cervical lordosis denoting myospasm. The examined vertebral bodies show no structural collapse or posterior neural elements fractures. Intact atlanto-axial interval. Degenerative changes of the atlanto-axial articulation with related capsular calcifications. Cervical spondylodegenerative changes evident by marginal osteophytic lipping and multilevel subchondral sclerosis of the examined vertebral end plates with multilevel disc spaces narrowing. Multilevel degenerative unco-vertebral arthropathy with osteophytes formation seen encroaching upon the corresponding neural exit foramina. Multilevel degenerative facet arthropathy. Multilevel nuchal and anterior longitudinal ligament calcifications. Multilevel diffuse disc bulges with posterior osteophytes and annular calcifications indenting the theca and encroaching upon the related neural exit foramina. No paraspinal masses. Carotid atheromatous calcifications. Bilateral upper lung lobes apical reticulations. CT/Spine Cervical without Contras IMPRESSION: Straightened cervical curve denoting myospasm. No vertebral fractures, structural collapse or acute dislocation. Cervical spondylodegenerative changes with multilevel uncovertebral and facet a rthropathy along with diffuse disc bulges inducing spinal canal and neural exit pathway compromise. No interval changes. Reading Location[facility]
--- OUTSIDE RECORDS SUMMARY | 2025-10-08 05:02 | XMS RPT_ITS | CCD ---
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 Name Role Phone Emigdio Crump (Historic) Primary Care Prov ider Patricia Mcgowan Primary Care Provider [phone] Unavailable Primary Care Provider Daniel Mcgowan MD, [...] le SELENE, BARB MAS Attending Unavailab le SELENE, BARB MAS Referring Unavailab le JOLLIFF, PATRICIA TRISTEN Primary Care Unavailable SELENEBARB Admitting Unavailab SARAH Peace Attending Unavailable SELENEBARB Admitting Unavailab HARPAL Brody Attending Unavailable JOLLRADHA, PATRICIA TRISTEN Primary Care Unavailable SELENE, BARB MAS Referring Unavailab le ESLENE, BARB MAS Attending Unavailab le JOLLIFF, PATRICIA TRISTEN Primary Care Unavailable SELENEBARB Referring Unavailab le JOLLIFF, PATRICIA [facility] Primary Care Unavailable SELENE, BARB MAS Attending Unavailab le SELENE, BARB MAS Referring Unavailab le JOLLIFF, PATRICIA TRISTEN Primary Care Unavailable JASPREET QURESHI Attending Unavailable Ja Cooley [place] Primary Care Provider Dr. Patricia Mcgowan Referring Provider Dr. Vladimir Sears Attending Provider Dr. Ja Cooley Primary Care Provider Dr. Davey Amin Attending Provider Ja Cooley [place] Primary Care Provider [phone] Ja Cooley [place] Primary Care Provider Ja Cooley [place] Primary Care Provider Lalo [place] MILL OPERATOR.YOUTH CAREER SPECIALIST, Erika K Unavailable Ja Cooley [place] Primary Care Provider Lalo [place] MILL OPERATOR.YOUTH CAREER SPECIALIST, Erika K Unavailable [place] MILL OPERATOR.YOUTH CAREER SPECIALIST, Tatiana Unavailable PATRICIA MCGOWAN Primary Care Unavailable LIZBETH, JAYLYN Attending Unavailable GARY RUIZ Attending Unavailable LIZBETH, JAYLYN Referring Unavailable [facility] Primary Care Unavailabl e LIZBETH, JAYLYN Referring Unavailable ALEIDA RAMIREZ Attending Unavailable [facility], [facility] Primary Care Unavailabl e LIZBETH, JAYLYN Attending Unavailable SCHINNER, [facility] Primary Care Unavailabl e LIZBETH, JAYLYN Attending Unavailable LIZBETH, JAYLYN Referring [facility]available [facility] Primary Care Unavailabl e SCHINNER, [facility] Primary Care Unavailabl e MAINE MEDEL Attending Unavailable LIZBETH, JAYLYN Referring Unavailable SCHINNER, [facility] Primary Care Unavailabl e WILLIS RYDER Attending Unavailable LIZBETH, JAYLYN Referring Unavailable SCHINNER, [facility] Primary Care Unavailabl e WILLIS RYDER Attending Unavailable LIZBETH, JAYLYN Referring Unavailable LIZBETH, JAYLYN Referring Unavailable SCHINNER, [facility] Primary Care Unavailabl e BEBB WILLIS Attending Unavailable BEWILLIS WEEKS Attending Unavailable LIZBETH, JAYLYN Referring Unavailable SCHINNER, [facility] Primary Care Unavailabl e SCHINNER, [facility] Primary Care Unavailabl e LIZBETH, JAYLYN Referring Unavailable SCHINNER, JA RAMÍREZ Primary Care Unavailabl e LIZBETH, JAYLYN Referring Unavailable Dr. Ja Cooley Primary Care Provider Dr. Ja Cooley Referring Provider Dr. Vick Santo Attending Provider Catalino ERNANDEZ, TERESAC Christel Attending Provider Dr. Vick Santo Referring Provider Dr. Vick Santo Other Provider Dr. Sofía Luu Attending Provider Dr. Ja Cooley Primary Care [...] Provider Dr. Osman Farooq MD Attending Provider Capri GARZA, Dr. Brewer Emergency Provider Colt GARZA, Dr. Kaur Attending Provider Dr. Natasha Gregory MD Referring Provider Ana GARZA, Dr. Jose Michaels Attending Provider Dr. Jose Perez MD, V Referring Provider Dr. Ja Cooley MD Attending Provider [phone] Dr. Ja Cooley MD Referring Provider Dr. Estuardo Mccormack DO Attending Provider Easton MONTEJO, Dr. Marte Emergency Provider Chet GARZA, Dr. Hickman Attending Provider Dr. Ja Cooley MD Primary Care Provider [phone] Charles MONTEJO, Dr. Diaz Emergency Provider Charles MONTEJO, Dr. Diaz Attending Provider Anastacia GARZA, Dr. Ja Deleon Primary Care Provider Colt GARZA, Dr. Kaur Attending Provider Chet GARZA, Dr. Hickman Referring Provider Chet GARZA, Dr. Hickman Referring Provider COLT GARZA, NATASHA Castro Primary Care Unavailable ANASTACIA GARZA, JA Attending Unavailable NATASHA GREGORY MD Primary Care Unavailable ANASTACIA GARZA, JA Attending Unavailable Dr. Ja Cooley MD Primary Care Provider [phone] Dr. Ja Cooley MD Referring Provider [phone] Dr. Ja Cooley MD Attending Provider Dr. Jose Perez MD, V Attending Provider Dr. Jose Perez MD, V Referring Provider [phone] Dr. Vick Santo MD Referring Provider Surya Dumont MD Referring Provider Surya Dumont MD Emergency Provider Ja Cooley MD Primary Care Provider JA COOLEY Primary Care Unavailable Chetan POWELL Attending Unavailable Dr. Ja Cooley MD Primary Care Provider Dr. Ja Cooley MD Attending Provider Dr. Ja Cooley MD Referring Provider Chet GARZA, Dr. Hickman Attending Provider Julia GARZA, Surya Attending Provider Chet GARZA, Dr. Hickman Referring Provider Iván GARZA, Dr. Matson Emergency Provider Chet GARZA, Dr. Hickman Referring Provider Iván GARZA, Dr. Matson Attending Provider Anastacia GARZA, Dr. Ja Deleon Primary Care Provider Anastacia GARZA, Dr. Ja Deleon Referring Provider [phone] Anastacia GARZA, Dr. Ja Deleon Attending Provider Colt GARZA, Dr. Kaur Referring Provider Anastacia GARZA, Dr. Ja Deleon Primary Care Provider Anastacia GARZA, Dr. Ja Deleon Referring Provider [phone] Chet GARZA, Dr. Hickman Attending Provider de [...] Provider Dr. Joe Soto DO Emergency Provider Dr. Maty Dial DO Attending Provider Anastacia GARZA, Dr. Ja Deleon Primary Care Provider Colt GARZA, Dr. Kaur Attending Provider Shital GARZA, Dr. Elias Attending Provider Catalino ERNANDEZ-C, Christel Attending Provider [phone] Anastacia GARZA, Dr. Ja Deleon Primary Care Provider Ana GARZA, Dr. Jose Michaels Attending Provider Garza DO, Dr. Guardado Referring Provider Unav julissa Deras MD, Dr. Cotto Emergency Provider Braeden GARZA, Dr. Cotto Attending Provider [phone] Anastacia GARZA, Dr. Ja Deleon Primary Care Physician Chet GARZA, Dr. Hickman Attending Physician Chet GARZA, Dr. Hickman Referring Provider Iván GARZA, Dr. Matson Attending Physician [phone] Iván GARZA, Dr. Matson Emergency Department Physician Colt GARZA, Dr. Kaur Attending Physician Colt GARZA, Dr. Kaur Referring Provider Dr. Joe Soto DO Emergency Department Physici an Garza DO, Dr. Guardado Admitting Physician Ro vailable Garza DO, Dr. Guardado Nurse Practitioner Unav julissa Narayanan MD, Dr. Daphnie Ryder Attending Physician Oracio GARZA, Dr. Daphnie Ryder Nurse Practitioner Dr. Guillermo Zavala MD Attending Physician Garza DO, Dr. Guardado Referring Provider Unav julissa Sears MD, Dr. Gilbert Attending Physician Dr. Maty Dila DO Attending Physician Dr. Maty Dial DO Emergency Department Physi juan Surya Dumont MD Attending Physician Surya Dumont MD Emergency Department Physician Anastacia GARZA, Dr. Ja Deleon Referring Provider [phone] Shital GARZA, Dr. Elias Attending Physician Catalino ERNANDEZ-C, Christel Attending Physician Anastacia GARZA, Dr. Ja Deleon Attending Physician Braeden GARZA, Dr. Cotto Attending Physician [phone] Braeden GARZA, Dr. Cotto Emergency Department Physici an [facility], Dr[facility] Nice [facility] Ja Cooley E Referring Unavailable Schinner, Ja E Attending Unavailable Schinner, Ja E Primary Care Unavailable Maty Dial Attending Unavailable Schinner, Ja E Primary Care Unavailable Vick Santo Referring Unavailable Vick Santo Attending Unavailable Schinner, Ja E Primary Care Unavailable Schinner, Ja E Primary Care Unavailable Osman Farooq Attending Unavailable Vick Santo Attending Unavailable Vick Santo Referring Unavailable Schinner, Ja E Primary Care Unavailable Schinner, Ja E Primary Care Unavailable Surya Dumont Attending Unavailable Julia Surya Referring Unavailable Reodica Surya Attending Unavailable Schinner, Ja E Primary Care Unavailable Schinner, Ja E Primary Care Unavailable Geo Garza Admitting Unavailable Geo Garza Consulting Unavailable Daphnie Narayanan Attending Unavailable Daphnie Narayanan Consulting Unavailable Schinner, Ja E Referring Unavailable Schinner, Ja E Attending Unavailable Schinner, Ja E Primary Care Unavailable Schinner, Ja E Primary Care Unavailable Joe Soto Attending Unavailable Schinner, Ja E Primary Care Unavailable Sibilia, Jose V Referring Unavailable Sibilia Jose V Attending Unavailable Schinner, Ja E Primary Care Unavailable Sibilia, Jose V Attending Unavailable Natasha Gregory Attending Unavailable Schinner, Ja E Primary Care Unavailable Estuardo Mccormack Attending Unavailable Schinner, Ja E Primary Care Unavailable ReSurya frye Attending Unavailable Schinner, Ja E Primary Care Unavailable Yadiel Deras Attending Unavailable Schinner, Ja E Primary Care Unavailable Schinner, Ja E Primary Care Unavailable Dano Minor Attending Unavailable Schinner, Ja E Attending Unavailable Schinner, Ja E Primary Care Unavailable Schinner, Ja E Referring Unavailable Schinner Ja E Attending Unavailable Schinner, Ja E Primary Care Unavailable Schinner, Ja E Primary Care Unavailable SchinJa lin E Attending Unavailable RejiinnerJa E Referring Unavailable Imer Gee Attending Unavailable Imer Gee Referring Unavailable Schinner, Ja E Primary Care Unavailable Schinner, Ja E Primary Care Unavailable Sibilia, Jose V Referring Unavailable Sibilia Jose V Attending Unavailable SchinJa lin E Referring Unavailable Christel Bae NP Attending Unavailable Schinner Ja E Primary Care Unavailable Curt Isaacs Attending Unavailable Schindelia Ja E Primary Care Unavailable Schinner Ja E Referring Unavailable Curt Isaacs Attending Unavailable Ja Cooley E Primary Care Unavailable Vick Santo Attending Unavailable Vick Santo Referring Unavailable SchJa marcos E Primary Care Unavailable Schpriti, Ja E Primary Care Unavailable Geo Garza Consulting Unavailable Geo Garza Admitting Unavailable Daphnie Narayanan Attending Unavailable Daphnie Narayanan Consulting Unavailable Geo Garza Attending Unavailable Vladimir Sears Attending Unavailable Ja Cooley E Primary Care Unavailable Guillermo Zavala Attending Unavailable Ja Cooley E Primary Care Unavailable Geo Garza Referring Unavailable Vick Santo Attending Unavailable Ja Cooley E Referring Unavailable aJ Cooley E Primary Care Unavailable Vick Santo Attending Unavailable Ja Cooley E Referring Unavailable Anastacia Ja E Primary Care Unavailable Vick Santo Attending Unavailable Ja Cooley E Referring Unavailable SchJa marcos E Primary Care Unavailable SchJa marcos E Referring Unavailable Ja Cooley E Attending Unavailable Ja Cooley E Primary Care Unavailable Mechelle Velazquez Attending Unavailable Mechelle Velazquez Referring Unavailable SchJa marcso E Primary Care Unavailable SchJa marcos Attending Unavailable Ja Cooley E Primary Care Unavailable Mechelle Velazquez Attending Unavailable Ja Cooley E Primary Care Unavailable Mechelle Velazquez Attending Unavailable Ja Cooley E Primary Care Unavailable Tex Whitney Attending UnavailJa Mckinley E Primary Care Unavailable Natasha Gregory Attending Unavailable Natasha Gregory Referring Unavailable SchJa marcos Primary Care Unavailable Natasha Gregory Attending Unavailable Natasha Gregory Referring Unavailable Ja Cooley Primary Care Unavailable JA COOLEY Primary Care Unavailable TRESA COOK Admitting UnavailPATRICIA Gamble Attending Unavailable CARINA VAUGHN Consulting Unavailable Allergies Allergy Classification Reported Allergen(s) Allergy Type Date of Onset Reaction(s) Facility DOPamine Antagonists (3 sources) Metoclopramide Drug Allergy 03-01-20 Anxiety [facility] Unclassified (3 sources) Seasonal allergy Propensity to adverse reactions to substance 05-05-20 [facility] (12 sources) Metoclopramide; Translations: [METOCLOPRAMIDE HCL] Drug Allergy 10-05-20 [facility] (20 sources) Metoclopramide; Translations: [METOCLOPRAMIDE] Drug Allergy 08-25-20 Mental Status Change, Other [facility] Work Phone: Comment on above: anxiety (1 source) Metoclopramide Drug Allergy 08-22-20 [facility] (1 source) Haloperidol; Translations: [HALOPERIDOL] Drug Allergy 08-25-20 [facility] Other [place] [facility] Medications Current Medications Medication Drug Class(es) Dates Sig (Normalized) Sig (Original) [id number] 200 actuat albuterol 0.09 mg/actuat metered dose inhaler (20 sources) beta2-Adrenergic Agonist Start: 06-08-2025 Start: 06-08-2025 Albuterol Sulf ate 90 mcg/actuation HFA aerosol inhaler Active 2 [...] Puffs as in structed. 24 hr alfuzosin hydrochlorid e 10 mg extended release oral tablet (20 sources) alpha-Adrenergic Aravind Start: 04-12-2023 aspirin 81 mg delayed releas e oral tablet (20 sources) Platelet Aggregation Inhibitor, Nonsteroidal Anti-inflammatory Drug Start: 06-08-2025 Start: 06-07-2013 End: 06-27-2024 End: 12-12-2022 aspirin 81 mg chewable table t Take 81 mg by mouth. 0 12/12/2022 Discontinued take 1 tablet by ramona th once daily aspirin 81 MG tablet Take 81 mg by mouth daily 0 Active Comment on above: Take 81 mg by mouth once daily. Take 81 mg by mouth. budesonide 0.5 mg/ml inhalat ion suspension (10 sources) Corticosteroid Start: 06-08-2025 Start: 06-08-2025 take 1 mg by inhalat ion every six hours Budesonide (Pulmicort) 1 mg/2 mL suspension for nebulization Active 1 mg INHALATION EVERY 6 HOURS June 08, 2025 12:00am SOB calcium chloride 0.0014 meq/ml / potassium chloride 0.004 meq/ml / sodium chloride 0.103 meq/ml / sodium lactate 0.028 meq/ml injectable solution (1 source) Start: 05-19-2021 garry gomes rs infusion carbidopa 25 mg / levodopa 100 mg [...] April 12, 2022 9:33am Start: 04-12-2022 End: 06-29-2025 Start: 04-12-2022 End: 04-12-2023 Carbidopa-Levodopa 25-100 mg [...] on above: Take 2 tablets by [facility] three times daily. cholecalciferol 0.025 mg oral capsule (20 sources) Vitamin D Start: 04-12-20 take 1 capsule by mouth once daily Cholecalciferol (Vitamin D3) 25 mcg (1,000 unit) capsule Active 50 ug PO DAILY May 24th, 2023 10:21am Start: 04-12-2022 End: 04-12-2023 Start: 04-12-2022 End: 04-12-2023 take 1 capsule [...] cartridge (1 source) Histamine-1 Receptor Antagonist Start: 05-19-2021 End: 05-19-2021 diphenhydrAMINE (BENADRYL) injection 12.5 mg 250 ml DOBUTamine 1 mg/ml injection (1 source) beta-Adrenergic Agonist Start: 05-11-2021 DOBUTamine (DOBUTREX) 250 mg in dextrose 5 % 250 mL infusion doxepin hydrochloride 25 mg oral capsule (20 sources) Tricyclic Antidepressant Start: 12-19-2024 End: 07-11-2025 Start: 12-19-2024 End: 07-11-2025 take 1 capsule by mouth at bedtime Doxepin 25 mg capsule Active 25 mg PO AT BEDTIME 90 0 July 11, 2025 10:12am nerve pain Start: 06-17-2024 End: 12-11-2024 Start: 06-17-2024 End: 12-11-2024 take 1 capsule [...] (20 sources) 5-alpha Reductase Inhibitor Start: 04-11-2023 Start: 10-07-2022 finasteride (P ROSCAR) 5 mg tablet 30 actuat fluticasone furoate 0.1 mg/actuat / umeclidinium 0.0625 mg/actuat / vilanterol 0.025 mg/actuat dry powder inhaler (14 sources) Anticholinergic, Corticosteroid, beta2-Adrenergic Agonist take 1 puff(s) by inhalation once daily jncsyommspu-jompmidop-tschiwvy (Trelegy Ellipta) 100-62.5-25 mcg DsDv Inhale 1 puff daily . 0 Active Fluticasone-Umec lidin-Vilanter (20 sources) Sta rt: Jiovpknjgum-Iovwcisrx-Jglkzy er (Trelegy Ellipta) 200-62.5-25 mcg blister with device Active 1 INH INHALATION DAILY April 12, 2022 9:33am Start: 04-12-2022 Start: 04-12-2022 Fluticasone-Um eclidin-Vilanter (Trelegy Ellipta) 200-62.5-25 [...] 27, 2024 3:16pm Start: 04-12-2023 End: 06-27-2024 Start: 04-12-2023 End: 06-27-2024 Insulin Glargine U-300 [...] ml insulin lispro 100 unt/ml pen injector (9 sources) Insulin Analog Start: 06-12-2025 Start: 06-12-2025 Insulin Lispro (Humalog Kwikpen Insulin) [...] release oral tablet (20 sources) Biguanide Start: 04-06-2018 End: 04-12-2023 Start: 04-06-2018 End: 04-12-2023 Metformin 750 mg [...] (20 sources) Proton Pump Inhibitor Start: 09-06-2019 Comment on above: Take 40 mg by mouth once daily. pravastatin sodium 80 mg oral tablet (20 sources) HMG-CoA Reductase Inhibitor Start: 06-07-2013 Comment on above: Take 80 mg by [...] (20 sources) Nonergot Dopamine Agonist Start: 06-26-2025 Start: 03-20-2025 End: 06-27-2025 Start: 02-06-2025 End: 02-13-2025 Start: 02-06-2025 End: 03-20-2025 Start: 02-06-2025 End: 03-20-2025 take 1 tablet by mouth twice daily, then take 0.5 mg by mouth twice daily Ropinirole 1 mg tablet Discontinued 1 mg PO TWICE A DAY 180 0 February 06, 2025 12:00am March 20, 2025 3:51pm Begin after completing 1 week course of ropinirole 0.5 mg twice daily. sertraline 50 mg oral tablet (8 sources) Serotonin Reuptake Inhibitor Start: 07-03-2025 End: 07-17-2025 Start: 10-23-2022 sertraline (ZO LOFT) 50 mg [...] et 1,000 mg acetaminophen 325 mg / HYDRO codone bitartrate 5 mg oral tablet (20 sources) Opioid Agonist Start: 10-12-2024 End: 06-08-2025 Start: 10-12-2024 End: 06-08-2025 take 1 tablet by mouth every six hours as needed for pain Hydrocodone-Acetaminophen 5-325 mg table t Discontinued 1 {tbl} PO EVERY 6 HOURS NEEDED as needed for Pain 15 4 0 October 12, 2024 June 08, 2025 11:48pm Closed fracture of one rib of left side Fracture of one rib, left side, initial encounter for closed fracture Start: 02-05-2018 End: 05-05-2021 HYDROcodone-acetaminophen (N ORCO) 5-325 MG per tablet acetaminophen 325 mg / oxyCO DONE hydrochloride 5 mg oral tablet (20 sources) Opioid Agonist Start: 04-12-2022 End: 04-11-2023 Start: 04-12-2022 End: 04-11-2023 Oxycodone-Acetaminophen Disc ontinued [...] (20 sources) Benzodiazepine Start: 01-29-20 End: 04-12-20 Start: 01-28-2022 End: 04-12-2022 take 1 tablet by mouth at bedtime as needed Alprazolam (Xanax) 0.5 mg tablet Discontinued 0.5 mg PO AT BEDTIME as needed for insomnia 4 0 January 28, 2022 1:00am April 12, 2022 9:36am Start: 05-19-2021 ALPRAZolam (NI RAVAM) dissolvable tablet 0.25 mg amoxicillin 875 mg / clavula susie 125 mg oral tablet (20 sources) Penicillin-class Antibacterial Start: 06-09-2025 End: 06-24-2025 Start: 06-09-2025 End: 06-24-2025 Amoxicillin-Pot Clavulanate 875-125 mg tablet Discontinued 1 {tbl} PO TWICE A DAY 10 0 June 09, 2025 12:00am June 24, 2025 2:41pm Start: 10-04-2017 End: 04-06-2018 Start: 10-04-2017 End: 04-06-2018 Amoxicillin-Pot Clavulanate 1 EACH tablet Discontinued 1 NMA PO TWICE A DAY 20 October 04, 2017 1:00am April 06, 2018 11:56am Start: 10-04-2017 End: 04-06-2018 Amoxicillin-Pot Clavulanate Discontinued 1 EACH PO TWICE A DAY October 04, 2017 1:00am April 06, 2018 11:56am ascorbic acid 1000 mg oral c apsule (20 sources) Vitamin C Start: 06-27-2024 End: 06-08-2025 busPIRone hydrochloride 5 mg oral tablet (20 sources) Start: 09-02-2024 End: 12-11-2024 Start: 05-10-2023 End: 08-07-2023 Start: 05-10-2023 End: 08-07-2023 take 1 tablet by mouth twice daily Buspirone 5 mg tablet Discontinued 5 mg PO TWICE A DAY 180 0 June 05, 2023 5:12pm August 07, 2023 3:29pm cephalexin 500 mg oral capsule (4 sources) Cephalosporin Antibacterial Start: 04-13-2025 End: 04-13-2025 take 500 mg by mouth once 500 [...] tablet (20 sources) Start: 12-11-2024 End: 03-20-2025 Start: 12-11-2024 End: 03-20-2025 Start: 12-11-2024 End: 03-20-2025 take 1 tablet by mouth at bedtime Donepezil 5 mg tablet Discontinued 5 mg PO AT BEDTIME 30 0 December 11, 2024 1:00am March 20, 2025 3:52pm DULoxetine 30 mg delayed release oral capsule (20 sources) Serotonin and Norepinephrine Reuptake Inhibitor Start: 09-15-2022 End: 09-16-2023 take 1 capsule by mouth once daily DULoxetine (CYMBALTA) 30 mg capsule Take 1 capsule by mouth once daily. 90 capsule 3 09/15/2022 09/16/2022 Discontinued Start: 03-17-2022 End: 04-11-2023 Comment on above: Take 1 capsule by [facility] once daily. EPINEPHrine 0.01 mg/ml / [...] famotidine (PEPCID) tablet 2 0 mg fluticasone hdlibbs-ylvsbdpikzfs-htdtfordxi (TRELEGY ELLIPTA) 200-62.5-25 mcg powder inhaler (12 sources) take 1 puff(s) by inhalation once daily fluticasone egivhxd-ignngzrtudnr-efkqflbroi (TRELEGY ELLIPTA) 200-62.5-25 mcg powder inhaler Inhale [...] 2 4 - 2 0 2 1 hydroCHLOROthiazide 12.5 mg oral tablet (20 sources) Thiazide Diuretic S t a r t : 0 5 - 2 4 - 2 0 2 1 E n d : 0 5 - 0 1 - 2 0 2 5 Start: 04-06-2018 End: 04-11-2019 Start: 02-16-2018 hydroCHLOROthi azide (HYDRODIURIL) 25 MG tablet Take 12.5 mg by mouth daily . 0 02/16/2018 Active Comment on above: Take 12.5 mg by mout h once daily. hydroCHLOROthiazide 12.5 mg / telmisartan 40 mg oral tablet (20 sources) Thiazide Diuretic, Angiotensin 2 Receptor Aravind Start: 04-12-2022 End: 04-11-2023 Start: 04-12-2022 End: 04-11-2023 Telmisartan-Hydrochlorothiaz id 40-12.5 mg tablet Discontinued 1 {tbl} PO [...] (20 sources) Antihistamine Start: 01-31-2022 End: 04-11-2023 Comment on above: Take 25 mg by mouth daily at bedtime. insulin aspart, human 100 unt/ml injectable solution (20 sources) Insulin Analog Start: 12-18-2017 NOVOLOG FLEXPE N 100 UNIT/ML injection pen Indications: 15 min before eating 22 Units Indications: 15 min before eating 22 U in morning, 34U at lunch, 36U at dinner 0 12/18/2017 Active Start: 05-01-2014 End: 04-12-2023 insulin aspart ( NOVOLOG FLEXPEN U-100 INSULIN SUBCUTANEOUS) Inject 300 Units subcutaneously. 0 Active Comment on above: Inject 300 Units sub cutaneously. insulin detemir 100 unt/ml injectable solution (20 sources) Insulin Analog Start: 04-12-2023 End: 06-27-2024 Start: 04-12-2023 End: 06-27-2024 Insulin Detemir U-100 (Levem ir U-100 Insulin) 100 unit/mL solution Discontinued 84 U SC EVERY MORNING April 12, 2023 10:23am June 27, 2024 3:19pm Start: 04-06-2018 End: 04-12-2023 Start: 04-06-2018 End: 04-12-2023 inject 80 [IU] [...] 05/05/2021 Discontinued (LIST CLEANUP) ipratropium bromide 0.021 mg /actuat metered dose nasal spray (20 sources) Anticholinergic Start: 04-06-2018 End: 04-11-2019 Start: 04-06-2018 End: 04-11-2019 Ipratropium [place] 0.03 % s pray,non-aerosol Discontinued 2 NMA INTRANASAL 2 to 3 times per day as needed April 06, 2018 12:00am April 11, 2019 11:44am Start: 04-06-2018 End: 04-11-2019 Ipratropium [place] Disconti nued 2 SPRAY INTRANASAL 2 to 3 times per day April 06, 2018 12:00am April 11, 2019 11:44am istradefylline 20 mg oral tablet (20 sources) Start: 11-23-2023 End: 06-27-2024 losartan potassium 50 mg oral tablet (9 sources) Angiotensin 2 Receptor Aravind End: 12-12-2022 take 1 tablet by mouth once daily losartan (COZAAR) 50 mg tablet Take 50 mg by mouth once daily. 0 12/12/2022 Discontinued Comment on above: Take 50 mg by mouth once daily. magnesium oxide 400 mg oral tablet (20 sources) Start: 04-06-2018 End: 04-10-2018 24 hr metFORMIN hydrochloride 1000 mg / sAXagliptin 5 mg extended release oral tablet (20 sources) Biguanide, Dipeptidyl Peptidase 4 Inhibitor Start: 04-06-2018 End: 04-11-2023 Start: 04-06-2018 End: 04-11-2023 take 5-1000 mg by mouth every twenty-four hours Saxagliptin-Metformin (Kombiglyze Xr) 5-1,000 mg tablet, ER multiphase 24 hr Discontinued 1 {tbl} PO daily April 06, 2018 12:00am April 11, 2023 10:36am Start: 02-17-2018 End: 05-05-2021 KOMBIGLYZE XR 5-1000 MG TB24 daily 0 02/17/2018 05/05/2021 Discontinued (LIST CLEANUP) 24 hr metoprolol succinate 5 0 mg extended release oral tablet (20 sources) beta-Adrenergic Aravind Start: 02-16-2018 End: 05-05-2021 mirtazapine 45 mg oral table t (20 sources) Start: 03-27-2024 End: 09-02-2024 Start: 03-27-2024 End: 09-02-2024 take 1 tablet by mouth at bedtime Mirtazapine 45 mg tablet Discontinued 45 mg PO AT BEDTIME 90 1 March 27, 2024 12:00am September 02, 2024 1:52pm Start: 09-06-2023 End: 03-27-2024 Start: 09-06-2023 End: 03-27-2024 take 1 tablet by mouth at bedtime Mirtazapine 30 mg tablet Discontinued 30 mg PO AT BEDTIME 90 0 February 13, 2024 5:04pm March 27, 2024 11:29am Start: 08-07-2023 End: 09-06-2023 Start: 08-07-2023 End: 09-06-2023 take 1 tablet [...] tablet (20 sources) Serotonin Reuptake Inhibitor Start: 04-06-2018 End: 04-12-2022 Start: 06-07-2013 End: 03-17-2022 take 1 tablet [...] tablet (20 sources) Start: 04-12-2022 End: 03-20-2025 Start: 04-12-2022 take 20 mEq by mouth once daily Potassium Chloride Active 20 MEQ PO DAILY April 12, 2022 12:00am Start: 02-16-2018 potassium chlo ride ER (KLOR-CON M20) 20 mEq tablet once daily. 0 02/16/2018 Active Start: 06-07-2013 End: 04-12-2022 End: 05-05-2021 take 10 mEq by mouth [...] capsule (20 sources) beta-Adrenergic Aravind Start: End: Start: 04-11-2023 End: 06-08-2025 take 1 capsule by mouth once daily Propranolol 60 mg capsule,extended release 24 hr Discontinued 60 mg PO DAILY 90 1 March 31, 2025 9:07am June 08, 2025 11:48pm sulfamethoxazole 800 mg / trimethoprim 160 mg [...] alpha-Adrenergic Aravind Start: 09-06-2019 End: 04-12-2023 take 0.4 mg by mouth twice daily tamsulosin (FLOMAX) 0.4 mg Take 0.4 mg by mouth twice daily. 0 Active Comment on above: Take 0.4 mg by mouth once daily. Take 0.4 mg by mouth twice daily. telmisartan 40 mg oral table t (20 sources) Angiotensin 2 Receptor Aravind Start: 04-12-2021 End: 04-12-2022 Comment on above: Take 40 mg by mouth once daily. 24 hr tolterodine tartrate 4 mg extended release oral capsule (20 sources) Cholinergic Muscarinic Antagonist Start: 02-16-2018 End: 05-05-2021 traZODone hydrochloride 100 mg oral tablet (20 sources) Serotonin Reuptake Inhibitor Start: 10-09-2023 End: 03-27-2024 Start: 10-09-2023 End: 03-27-2024 take 1 tablet by mouth at bedtime Trazodone 100 mg tablet Discontinued 100 mg PO AT BEDTIME 90 1 October 16, 2023 5:13pm March 27, 2024 11:31am Start: 09-20-2023 End: 10-09-2023 Start: 09-20-2023 End: 10-09-2023 take 1 tablet [...] 30 mg oral tablet (20 sources) Start: 06-27-2024 End: 06-08-2025 Problems Active Problems Problem Classification Problem Date Documented Da te Episodic/Chronic Acute cerebrovascular disease (2 sources) Nontraumatic chronic subdural hemorrhage; Translations: [Subdural hematoma] Onset: 08-22-2025 Chronic Anxiety disorders (20 sources) Anxiety; Translations: [Anxiety [...] disturbance] 05-10-2023 Chronic Diabetes mellitus with complications (20 sources) Hypoglycemia due to type 2 diabetes mellitus; Translations: [Type 2 diabetes mellitus with hypoglycemia without coma] Onset: 11-28-2024 05-11-2025 Chronic Diabetes mellitus without complication (1 source) Type 2 diabetes mellitus without complications; Translations: [Type 2 diabetes mellitus without complications] Onset: 09-12-2025 Chronic Disorders of lipid metabolism (20 sources) [...] Translations: [Unspecified injury of head, initial encounter] 03-25-2023 Episodic Other injuries and conditions due to [...] 08-12-2025 04-11-2023 Episodic Other nervous system disorders (20 sources) H/O: brain disorder; Translations: [Personal history of other diseases of the nervous system and sense organs] 06-08-2025 Episodic Other nutritional; endocrine; and metabolic disorders (20 sources) Obesity; Translations: [Obesity, unspecified] 04-11-2022 Chronic Other nutritional; endocrine; and metabolic disorders (20 sources) Body mass index 30+ - obesity; Translations: [Body mass index (BMI) 36.0-36.9, adult] 05-11-2025 Chronic Other nutritional; endocrine; and metabolic disorders (1 source) Obesity, unspecified; Translations: [Obesity, unspecified] Onset: 06-09-2025 Chronic Parkinson`s disease (20 sources) Parkinson's disease; [...] [Insomnia, unspecified] 02-05-2022 Episodic Residual codes; unclassified (14 sources) Altered mental status; Translations: [Altered mental status, unspecified] 05-11-2025 Episodic Skull and face fractures (4 sources) Open fracture of nasal bones; Translations: [Fracture of nasal bones, initial encounter for open fracture] Onset: 04-13-2025 04-13-2025 Episodic Spondylosis; intervertebral disc disorders; other back problems (20 sources) Low back pain; Translations: [Low back pain] 05-10-2023 Episodic Superficial injury; contusion (20 sources) Abrasion [...] specified conditions influencing health status] Onset: Episodic Fluid and electrolyte disorders (20 sources) Dehydration; Translations: [Dehydration] Onset: 06-08-2025 Episodic Fracture of upper limb (5 sources) [...] anarthria; Translations: [Dysarthria] Onset: 2 Episodic Other nervous system disorders (1 source) Personal history of other diseases of the nervous system and sense organs; Translations: [Personal history of other diseases of the nervous system and sense organs] Onset: 5 Episodic Other screening for suspected conditions (not mental disorders or infectious disease) (8 sources) Electrocardiogram abnormal; Translations: [Abnormal electrocardiogram [ECG] [EKG]] Onset: 1 Episodic Other upper respiratory infections (20 sources) Acute sinusitis; Translations: [Acute sinusitis, unspecified] Onset: 5 06-08-2025 Episodic Screening and history of mental health and substance abuse codes (20 sources) H/O: dementia; Translations: [Personal history of other mental and behavioral disorders] Onset: 5 06-08-2025 Episodic Sprains and strains (20 sources) Strain of neck muscle; Translations: [Strain of muscle, fascia and tendon at neck level, initial encounter] Onset: 5 02-14-2025 Episodic Results Test Name Value Interpretation Reference Range Facility [facility] 09-25-[address] [facility] CNPNon 09-25-2025 CNPN Telephone (NEAGCLM) LUIS ARMANDO GRIFFITH ([id number]) 1945 M Date Time Provider Department 09/25/25 MICHELLE JARAMILLO NEJIMY During your visit today, we recorded the following information about you: Malissa Barger 09/25/2025 5:16 PM Signed No Show Documentation LuisA rmando Griffith no showed for an appointment on 09/25/2025 with Michelle Jaramillo APRN.CNP at 10:30 PM. He was scheduled for Hospital follow-up for Bleed. I called and spoke with the patient regarding his missed appointment. Luis Armando stated the reason that he missed his appointment was because n/a. Resources discussed/offered to patient: reschedule No show determined to be fault of patient: N/A This is the patients first no show in the last 12 months. Patient was rescheduled for n/a. No answer, left voice mail to call back and reschedule missed appointment. Letter mailed : Yes Is this the Third or Fourth No Show? Amina Barger September 25, 2025 5:15 PM 09/25/25 Allergies As of Date: 09/25/2025 Noted Allergy Reaction HALDOL (HALOPERIDOL) 08/25/2025 14 - Other: See Comments Comments: Contraindicated in parkinson's REGLAN (METOCLOPRAMIDE) 08/25/2021 1 - Mental Status Change Comments: psychosis Date Reviewed: 08/26/2025 Reviewed by: Aman Salazar RN - Fully Assessed Reason for Visit: No Show [1558] Cmt: No Show # 1 Prescriptions as of 09/25/2025 - acetaminophen (TYLENOL) 500 mg tablet Take 2 tablets by mouth three times a day. - bisacodyl (DULCOLAX) 10 mg supp 1 suppository by RECTAL route once daily as needed. - levETIRAcetam (KEPPRA) 500 mg tablet 1 tablet by ORAL/FEEDING TUBE route two times a day for 5 doses. - polyethylene glycol 3350 17 gram packet Take 1 packet by mouth once daily. Dissolve dose in 4 - 8 ounces of liquid and take as directed. - senna-docusate (SENNA-S) 8.6-50 mg per tablet Take 1 tablet by mouth two times a day. - alfuzosin SR (UROXATRAL) 10 mg 24 hr tablet Take 10 mg by mouth once daily. - budesonide (PULMICORT) 1 mg/2 mL nebulizer solution Use 1 mg via nebulizer four times daily. - buPROPion XL (WELLBUTRIN XL) 150 mg 24 hr tablet Take 150 mg by mouth once daily. - rOPINIRole (REQUIP) 1 mg tablet Take 1 mg by mouth three times a day. - insulin glargine,hum.rec.anlog (TOUKEARA SOLOSTAR U-300 INSULIN SQ) Inject 50 Units subcutaneously every morning. 50 units once daily in AM - DOXEPIN HCL, BULK, MISC Take 25 mg by mouth daily at bedtime. - finasteride (PROSCAR) 5 mg tablet - [...] tablets by mouth three times daily. - hydroCHLOROthiazide (HYDRODIURIL, ESIDRIX) 12.5 mg tablet Take 12.5 mg by mouth once daily. - cholecalciferol, vitamin D3, (VITAMIN D3 50 MCG, 2,000 UNIT, GUMMIES) Take 4,000 Units by mouth once daily. - fluticasone lxmrdjx-pjplkcpmmfie-dq lanterol (TRELEGY ELLIPTA) 200-62.5-25 mcg powder inhaler Inhale 1 Puff as instructed once daily. - pantoprazole DR (PROTONIX) 40 [...] once daily. Problem List As Of Date 09/25/2025 Noted Resolved Parkinsonism (HCC) [G20.C] 03/18/2022 Gait instability [R26.81] 03/18/2022 02/15/2023 Leg weakness, bilateral [R29.898] 08/11/2022 02/15/2023 Imbalance [R26.89] 08/11/2022 02/15/2023 Subdural hematoma (HCC) [S06.5XAA] 08/22/2025 Fall [W19.XXXA] 08/22/2025 Obesity, Class I, BMI 30-34.9 [E66.811] 08/23/2025 MELISSA (obstructive sleep apnea) [G47.33] 08/23/2025 At risk for delirium [Z91.89] 08/25/2025 Memory loss [R41.3] 08/25/2025 DNR (do not resuscitate) discussion [Z71.89] 08/25/2025 Frailty syndrome in geriatric patient [R54] 08/25/2025 Goals of care, counseling/discussion [Z71.89] 08/25/2025 Full code status [Z78.9] 08/25/2025 Encounter Status:Closed by MALISSA BARGER on 09/25/[address] [facility] CBC W/Diff, Automatedon 10-3 Absolute Lymph 2.46 X10 3/uL Normal 0.83-4.51 [facility] Comment on above: Order Comment: Order Date: 09/18/25Order Info: 0184-1 - CBCD Performed By: #### L 500.4050, L100.0100, L501.9985 ####[facility] [address] [place], [address] Absolute Neut 5.0 X10 3/uL Normal 2.0-7.7 [facility] Comment on above: Order Comment: Order Date: 09/18/25Order Info: 0184-1 - CBCD Performed By: #### L 500.4050, L100.0100, L501.9985 ####[facility] [address] [place], [address] Basophils/100 WBC (Bld) 0.6 % Normal 0-1 [facility] Comment on above: Order Comment: Order Date: 09/18/25Order Info: 0184-1 - CBCD Performed By: #### L 500.4050, L100.0100, [id number] ####[facility] [address] [place], [address] Eosinophils/100 WBC (Bld) 1.4 % Normal 0-5 [facility] Comment on above: Order Comment: Order Date: 09/18/25Order Info: 0184-1 - CBCD Performed By: #### L 500.4050, L100.0100, L501.9985 ####[facility] [address] [place], [address] Erythrocyte distribution width (RBC) [Ratio] 13.8 % Normal 11.6-14.6 [facility] Comment on above: Order Comment: Order Date: 09/18/25Order Info: 0184-1 - CBCD Performed By: #### L 500.4050, L100.0100, [id number] ####[facility] [address] [place], [address] Hematocrit (Bld) [Volume fraction] 40.8 % Normal 40-54 [facility] Comment on above: Order Comment: Order Date: 09/18/25Order Info: 018-1 - CBCD Performed By: #### L 500.4050, L100.0100, L501.9985 ####[facility] [address] [place], [address] Hemoglobin (Bld) [Mass/Vol] 13.8 g/dL Normal 13.0-16.5 [facility] Comment on above: Order Comment: Order Date: 09/18/25Order Info: 018- - CBCD Performed By: #### L 500.4050, L100.0100, L501.9985 ####[facility] [address] [place], [address] IG% 0.500 Normal 0.0-0.9 [facility] Comment on above: Order Comment: Order Date: 09/18/25Order Info: 018- - CBCD Result Comment: IG% - Immature Granulocytes (promyelocytes, myelocytes andmetamyelocytes) > 1% indicates that a LEFT SHIFT is Present. Performed By: #### L 500.4050, L100.0100, L501.9985 ####[facility] [address] [place], [address] Lymphocytes/100 WBC (Bld) 28.5 % Normal 19-41 [facility] Comment on above: Order Comment: Order Date: 09/18/25Order Info: 018- - CBCD Performed By: #### L 500.4050, L100.0100, [id number] ####[facility] [address] [place], [address] MCH (RBC) [Entitic mass] 29.8 pg Normal 27.0-32.0 [facility] Comment on above: Order Comment: Order Date: 09/18/25Order Info: 018- - CBCD Performed By: #### L 500.4050, L100.0100, [id number] ####[facility] [address] [place], [address] MCHC (RBC) [Mass/Vol] 33.8 g/dL Normal 32-36 [facility] Comment on above: Order Comment: Order Date: 09/18/25Order Info: 0184-1 - CBCD Performed By: #### L 500.4050, L100.0100, [id number] ####[facility] [address] [place], [address] MCV (RBC) [Entitic vol] 88.1 fL Normal 80-94 [facility] Comment on above: Order Comment: Order Date: 09/18/25Order Info: 0184-1 - CBCD Performed By: #### L 500.4050, L100.0100, [id number] ####[facility] [address] [place], [address] Monocytes/100 WBC (Bld) 11.0 % High 0-10 [facility] Comment on above: Order Comment: Order Date: 09/18/25Order Info: 0184-1 - CBCD Performed By: #### L 500.4050, L100.0100, [id number] ####[facility] [address] [place], [address] Neutrophils/100 WBC (Bld) 58.0 % Normal 47-70 [facility] Comment on above: Order Comment: Order Date: 09/18/25Order Info: 0184-1 - CBCD Performed By: #### L 500.4050, L100.0100, [id number] ####[facility] [address] [place], [address] Nucleated RBC (Bld) [#/Vol] 0 10*3/uL Normal 0-5 [facility] Comment on above: Order Comment: Order Date: 09/18/25Order Info: 0184-1 - CBCD Performed By: #### L 500.4050, L100.0100, L501.9985 ####[facility] [address] [place], [address] Platelet mean volume (Bld) [Entitic vol] 10.4 fL Normal 6.2-12.0 [facility] Comment on above: Order Comment: Order Date: 09/18/25Order Info: 0184-1 - CBCD Performed By: #### L 500.4050, L100.0100, [id number] ####[facility] [address] [place], [address] Platelets (Bld) [#/Vol] 272 10*3/uL Normal 150-450 [facility] Comment on above: Order Comment: Order Date: 09/18/25Order Info: 0184-1 - CBCD Performed By: #### L 500.4050, L100.0100, [id number] ####[facility] [address] [place], [address] RBC (Bld) [#/Vol] 4.63 10*6/uL Normal 4.6-6.2 [facility] Comment on above: Order Comment: Order Date: 09/18/25Order Info: 0184-1 - CBCD Performed By: #### L 500.4050, L100.0100, [id number] ####[facility] [address] [place], [address] RDW SD 44.1 fl High 35.1-43.9 [facility] Comment on above: Order Comment: Order Date: 09/18/25Order Info: 0184-1 - CBCD Performed By: #### L 500.4050, L100.0100, [id number] ####[facility] [address] [place], [address] WBC (Bld) [#/Vol] 8.6 10*3/uL Normal 4.4-11.0 [facility] Comment on above: Order Comment: Order Date: 09/18/25Order Info: 0184-1 - CBCD Performed By: #### L 500.4050, L100.0100, L501.9985 ####[facility] [address] [place], [address] Comprehensive Metabolic Prof ilon 09-18-2025 Albumin [Mass/Vol] 4.1 g/dL Normal 3.4-4.8 [facility] Comment on above: Order Comment: Order Date: 09/18/25Order Info: 0786-1 - CMP Performed By: #### L 500.4050, L100.0100, [id number] ####[facility] [address] [place], [address] Albumin/Globulin [Mass ratio] 1.5 {ratio} Normal 0.9-2.4 [facility] Comment on above: Order Comment: Order Date: 09/18/25Order Info: 0786-1 - CMP Performed By: #### L 500.4050, L100.0100, [id number] ####[facility] [address] [place], [address] ALK PHOS 75 U/L Normal 40-129 [facility] Comment on above: Order Comment: Order Date: 09/18/25Order Info: 0786-1 - CMP Performed By: #### L 500.4050, L100.0100, [id number] ####[facility] [address] [place], [address] ALT [Catalytic activity/Vol] 8 U/L Normal <=46 [facility] Comment on above: Order Comment: Order Date: 09/18/25Order Info: 0786-1 - CMP Performed By: #### L 500.4050, L100.0100, [id number] ####[facility] [address] [place], [address] AST [Catalytic activity/Vol] 14 U/L Normal <=37 [facility] Comment on above: Order Comment: Order Date: 09/18/25Order Info: 0786-1 - CMP Performed By: #### L 500.4050, L100.0100, [id number] ####[facility] [address] [place], [address] Bilirubin [Mass/Vol] 0.74 mg/dL Normal 0.00-1.30 [facility] Comment on above: Order Comment: Order Date: 09/18/25Order Info: 0786-1 - CMP Performed By: #### L 500.4050, L100.0100, [id number] ####[facility] [address] [place], [address] BUN/CRE 31.3 RATIO High 10-20 [facility] Comment on above: Order Comment: Order Date: 09/18/25Order Info: 0786-1 - CMP Performed By: #### L 500.4050, L100.0100, L501.9985 ####[facility] [address] [place], [address] Calcium [Mass/Vol] 9.4 mg/dL Normal 7.6-11.0 [facility] Comment on above: Order Comment: Order Date: 09/18/25Order Info: 0786-1 - CMP Performed By: #### L 500.4050, L100.0100, L501.9985 ####[facility] [address] [place], [address] Chloride [Moles/Vol] 103 mmol/L Normal 98-108 [facility] Comment on above: Order Comment: Order Date: 09/18/25Order Info: 0786-1 - CMP Performed By: #### L 500.4050, L100.0100, L501.9985 ####[facility] [address] [place], [address] CO2 [Moles/Vol] 25.2 mmol/L Normal 21.0-32.0 [facility] Comment on above: Order Comment: Order Date: 09/18/25Order Info: 0786-1 - CMP Performed By: #### L 500.4050, L100.0100, [id number] ####[facility] [address] [place], [address] Creatinine [Mass/Vol] 0.81 mg/dL Normal 0.70-1.20 [facility] Comment on above: Order Comment: Order Date: 09/18/25Order Info: 0786-1 - CMP Performed By: #### L 500.4050, L100.0100, L501.9985 ####[facility] [address] [place], [address] GAP 11 Normal 5-15 [facility] Comment on above: Order Comment: Order Date: 09/18/25Order Info: 0786-1 - CMP Performed By: #### L 500.4050, L100.0100, L501.9985 ####[facility] [address] [place], [address] GFR/1.73 sq M.predicted among non-blacks MDRD (S/P/Bld) [Vol rate/Area] 89 mL/min/{1.73_m2} Normal >60 [facility] Comment on above: Order Comment: Order Date: 09/18/25Order Info: 0786-1 - CMP Result Comment: mL/m in/1.73m2 CKD-EPI Creatinine Equation (2020) Performed By: #### L 500.4050, L100.0100, L501.9985 ####[facility] [address] [place], [address] Globulin (S) [Mass/Vol] 2.7 g/dL Normal 2.2-4.2 [facility] Comment on above: Order Comment: Order Date: 09/18/25Order Info: 0786-1 - CMP Performed By: #### L 500.4050, L100.0100, [id number] ####[facility] [address] [place], [address] Glucose [Mass/Vol] 173 mg/dL High 70-99 [facility] Comment on above: Order Comment: Order Date: 09/18/25Order Info: 0786-1 - CMP Performed By: #### L 500.4050, L100.0100, L501.9985 ####[facility] [address] [place], [address] Potassium [Moles/Vol] 4.0 mmol/L Normal 3.3-5.1 [facility] Comment on above: Order Comment: Order Date: 09/18/25Order Info: 0786-1 - CMP Performed By: #### L 500.4050, L100.0100, [id number] ####[facility] [address] [place], [address] Sodium [Moles/Vol] 139 mmol/L Normal 133-145 [facility] Comment on above: Order Comment: Order Date: 09/18/25Order Info: 0786-1 - CMP Performed By: #### L 500.4050, L100.0100, [id number] ####[facility] [address] [place], [address] T PROT 6.9 g/dL Normal 5.9-8.4 [facility] Comment on above: Order Comment: Order Date: 09/18/25Order Info: 0786-1 - CMP Performed By: #### L 500.4050, L100.0100, [id number] ####[facility] [address] [place], [address] Urea nitrogen [Mass/Vol] 25 mg/dL High 4-19 [facility] Comment on above: Order Comment: Order Date: 09/18/25Order Info: 0786-1 - CMP Performed By: #### L 500.4050, L100.0100, L501.9985 ####[facility] [address] [place], [address] Hemoglobin A1con 09-18-2025 HbA1c (Bld) [Mass fraction] 7.7 % High <=5.6 [facility] Comment on above: Order Comment: Order Date: 09/18/25Order Info: 4548-4 - A1C Result Comment: Norm al < 5.7 % Prediabetic 5.7 - 6.4 % Diabetic >or= 6.5 % Please note range changes. Performed By: #### L 500.4050, L100.0100, L501.9985 ####[facility] [address] [place], [address] Basic Metabolic Profile (BMP )on 09-09-2025 BUN/CRE 19.3 RATIO Normal -20 [facility] Comment on above: Order Comment: 212 Performed By: #### L 500.2500, L501.5200, L100.0500 ####[facility] [address] [place], [address] Calcium [Mass/Vol] 9.5 mg/dL Normal 7.6-11.0 [facility] Comment on above: Order Comment: 212 Performed By: #### L 500.2500, L501.5200, L100.0500 ####[facility] [address] [place], [address] Chloride [Moles/Vol] 98 mmol/L Normal 98-108 [facility] Comment on above: Order Comment: 212 Performed By: #### L 500.2500, L501.5200, L100.0500 ####[facility] [address] [place], [address] CO2 [Moles/Vol] 29.5 mmol/L Normal 21.0-32.0 [facility] Comment on above: Order Comment: 212 Performed By: #### L 500.2500, L501.5200, L100.0500 ####[facility] [address] [place], [address] Creatinine [Mass/Vol] 0.87 mg/dL Normal 0.70-1.20 [facility] Comment on above: Order Comment: 212 Performed By: #### L 500.2500, L501.5200, L100.0500 ####[facility] [address] [place], [address] GAP 11 Normal 5-15 [facility] Comment on above: Order Comment: 212 Performed By: #### L 500.2500, L501.5200, L100.0500 ####[facility] [address] [place], [address] GFR/1.73 sq M.predicted among non-blacks MDRD (S/P/Bld) [Vol rate/Area] 87 mL/min/{1.73_m2} Normal >60 [facility] Comment on above: Order Comment: 212 Result Comment: mL/m in/1.73m2 CKD-EPI Creatinine Equation (2020) Performed By: #### L 500.2500, L501.5200, L100.0500 ####[facility] [address] [place], [address] Glucose [Mass/Vol] 233 mg/dL High 70-99 [facility] Comment on above: Order Comment: 212 Performed By: #### L 500.2500, L501.5200, L100.0500 ####[facility] [address] [place], [address] Potassium [Moles/Vol] 4.2 mmol/L Normal 3.3-5.1 [facility] Comment on above: Order Comment: 212 Result Comment: Hemo lysis present, Results??could be affected.?? Performed By: #### L 500.2500, L501.5200, L100.0500 ####[facility] [address] [place], [address] Sodium [Moles/Vol] 138 mmol/L Normal 133-145 [facility] Comment on above: Order Comment: 212 Performed By: #### L 500.2500, L501.5200, L100.0500 ####[facility] [address] [place], [address] Urea nitrogen [Mass/Vol] 17 mg/dL Normal 4-19 [facility] Comment on above: Order Comment: 212 Performed By: #### L 500.2500, L501.5200, L100.0500 ####[facility] [address] [place], [address] CBC-Complete Blood Cnt No Di ffon 09-09-2025 Erythrocyte distribution width (RBC) [Ratio] 13.6 % Normal 11.6-14.6 [facility] Comment on above: Order Comment: 212 Performed By: #### L 500.2500, L501.5200, L100.0500 ####[facility] [address] [place], [address] Hematocrit (Bld) [Volume fraction] 45.1 % Normal 40-54 [facility] Comment on above: Order Comment: 212 Performed By: #### L 500.2500, L501.5200, L100.0500 ####[facility] [address] [place], [address] Hemoglobin (Bld) [Mass/Vol] 15.1 g/dL Normal 13.0-16.5 [facility] Comment on above: Order Comment: 212 Performed By: #### L 500.2500, L501.5200, L100.0500 ####[facility] [address] [place], [address] MCH (RBC) [Entitic mass] 29.9 pg Normal 27.0-32.0 [facility] Comment on above: Order Comment: 212 Performed By: #### L 500.2500, L501.5200, L100.0500 ####[facility] [address] [place], [address] MCHC (RBC) [Mass/Vol] 33.5 g/dL Normal 32-36 [facility] Comment on above: Order Comment: 212 Performed By: #### L 500.2500, L501.5200, L100.0500 ####[facility] [address] [place], [address] MCV (RBC) [Entitic vol] 89.3 fL Normal 80-94 [facility] Comment on above: Order Comment: 212 Performed By: #### L 500.2500, L501.5200, L100.0500 ####[facility] [address] [place], [address] Platelet mean volume (Bld) [Entitic vol] 10.6 fL Normal 6.2-12.0 [facility] Comment on above: Order Comment: 212 Performed By: #### L 500.2500, L501.5200, L100.0500 ####[facility] [address] [place], [address] Platelets (Bld) [#/Vol] 296 10*3/uL Normal 150-450 [facility] Comment on above: Order Comment: 212 Performed By: #### L 500.2500, L501.5200, L100.0500 ####[facility] [address] [place], [address] RBC (Bld) [#/Vol] 5.05 10*6/uL Normal 4.6-6.2 [facility] Comment on above: Order Comment: 212 Performed By: #### L 500.2500, L501.5200, L100.0500 ####[facility] [address] [place], [address] RDW SD 44.4 fl High 35.1-43.9 [facility] Comment on above: Order Comment: 212 Performed By: #### L 500.2500, L501.5200, L100.0500 ####[facility] [address] [place], [address] WBC (Bld) [#/Vol] 8.7 10*3/uL Normal 4.4-11.0 [facility] Comment on above: Order Comment: 212 Performed By: #### L 500.2500, L501.5200, L100.0500 ####[facility] [address] [place], [address] Magnesiumon 09-09-2025 Magnesium [Mass/Vol] 1.8 mg/dL Normal 1.5-2.2 [facility] Comment on above: Order Comment: 212 Performed By: #### L 500.2500, L501.5200, L100.0500 ####[facility] [address] [place], [address] Basic Metabolic Profile (BMP )on 09-02-2025 BUN/CRE 25.1 RATIO High 10- [facility] Comment on above: Order Comment: 212.1 Performed By: #### L 500.2500, L501.9985, L501.5200, L100.0500, L503.0106, L501.9520 ####[facility] [address] [place], [address] Calcium [Mass/Vol] 9.4 mg/dL Normal 7.6-11.0 [facility] Comment on above: Order Comment: 212.1 Performed By: #### L 500.2500, L501.9985, L501.5200, L100.0500, L503.0106, L501.9520 ####[facility] [address] [place], [address] Chloride [Moles/Vol] 102 mmol/L Normal 98-108 [facility] Comment on above: Order Comment: 212.1 Performed By: #### L 500.2500, L501.9985, L501.5200, L100.0500, L503.0106, L501.9520 ####[facility] [address] [place], [address] CO2 [Moles/Vol] 28.7 mmol/L Normal 21.0-32.0 [facility] Comment on above: Order Comment: 212.1 Performed By: #### L 500.2500, L501.9985, L501.5200, L100.0500, L503.0106, L501.9520 ####[facility] [address] [place], [address] Creatinine [Mass/Vol] 0.90 mg/dL Normal 0.70-1.20 [facility] Comment on above: Order Comment: 212.1 Performed By: #### L 500.2500, L501.9985, L501.5200, L100.0500, L503.0106, L501.9520 ####[facility] [address] [place], [address] GAP 10 Normal 5-15 [facility] Comment on above: Order Comment: 212.1 Performed By: #### L 500.2500, L501.9985, L501.5200, L100.0500, L503.0106, L501.9520 ####[facility] [address] [place], [address] GFR/1.73 sq M.predicted among non-blacks MDRD (S/P/Bld) [Vol rate/Area] 86 mL/min/{1.73_m2} Normal >60 [facility] Comment on above: Order Comment: 212.1 Result Comment: mL/m in/1.73m2 CKD-EPI Creatinine Equation (2020) Performed By: #### L 500.2500, L501.9985, L501.5200, L100.0500, L503.0106, L501.9520 ####[facility] [address] [place], [address] Glucose [Mass/Vol] 167 mg/dL High 70-99 [facility] Comment on above: Order Comment: 212.1 Performed By: #### L 500.2500, L501.9985, L501.5200, L100.0500, L503.0106, L501.9520 ####[facility] [address] [place], [address] Potassium [Moles/Vol] 4.1 mmol/L Normal 3.3-5.1 [facility] Comment on above: Order Comment: 212.1 Performed By: #### L 500.2500, L501.9985, L501.5200, L100.0500, L503.0106, L501.9520 ####[facility] [address] [place], [address] Sodium [Moles/Vol] 141 mmol/L Normal 133-145 [facility] Comment on above: Order Comment: 212.1 Performed By: #### L 500.2500, L501.9985, L501.5200, L100.0500, L503.0106, L501.9520 ####[facility] [address] [place], [address] Urea nitrogen [Mass/Vol] 23 mg/dL High 4-19 [facility] Comment on above: Order Comment: 212.1 Performed By: #### L 500.2500, L501.9985, L501.5200, L100.0500, L503.0106, L501.9520 ####[facility] [address] [place], [address] CBC-Complete Blood Cnt No Di ffon 09-02-2025 Erythrocyte distribution width (RBC) [Ratio] 13.4 % Normal 11.6-14.6 [facility] Comment on above: Order Comment: 212.1 Performed By: #### L 500.2500, L501.9985, L501.5200, L100.0500, L503.0106, L501.9520 ####[facility] [address] [place], [address] Hematocrit (Bld) [Volume fraction] 41.3 % Normal 40-54 [facility] Comment on above: Order Comment: 212.1 Performed By: #### L 500.2500, L501.9985, L501.5200, L100.0500, L503.0106, L501.9520 ####[facility] [address] [place], [address] Hemoglobin (Bld) [Mass/Vol] 13.6 g/dL Normal 13.0-16.5 [facility] Comment on above: Order Comment: 212.1 Performed By: #### L 500.2500, L501.9985, L501.5200, L100.0500, L503.0106, L501.9520 ####[facility] [address] [place], [address] MCH (RBC) [Entitic mass] 29.8 pg Normal 27.0-32.0 [facility] Comment on above: Order Comment: 212.1 Performed By: #### L 500.2500, L501.9985, L501.5200, L100.0500, L503.0106, L501.9520 ####[facility] [address] [place], [address] MCHC (RBC) [Mass/Vol] 32.9 g/dL Normal 32-36 [facility] Comment on above: Order Comment: 212.1 Performed By: #### L 500.2500, L501.9985, L501.5200, L100.0500, L503.0106, L501.9520 ####[facility] [address] [place], [address] MCV (RBC) [Entitic vol] 90.4 fL Normal 80-94 [facility] Comment on above: Order Comment: 212.1 Performed By: #### L 500.2500, L501.9985, L501.5200, L100.0500, L503.0106, L501.9520 ####[facility] [address] [place], [address] Platelet mean volume (Bld) [Entitic vol] 10.7 fL Normal 6.2-12.0 [facility] Comment on above: Order Comment: 212.1 Performed By: #### L 500.2500, L501.9985, L501.5200, L100.0500, L503.0106, L501.9520 ####[facility] [address] [place], [address] Platelets (Bld) [#/Vol] 245 10*3/uL Normal 150-450 [facility] Comment on above: Order Comment: 212.1 Performed By: #### L 500.2500, L501.9985, L501.5200, L100.0500, L503.0106, L501.9520 ####[facility] [address] [place], [address] RBC (Bld) [#/Vol] 4.57 10*6/uL Low 4.6-6.2 [facility] Comment on above: Order Comment: 212.1 Performed By: #### L 500.2500, L501.9985, L501.5200, L100.0500, L503.0106, L501.9520 ####[facility] [address] [place], [address] RDW SD 44.3 fl High 35.1-43.9 [facility] Comment on above: Order Comment: 212.1 Performed By: #### L 500.2500, L501.9985, L501.5200, L100.0500, L503.0106, L501.9520 ####[facility] [address] [place], [address] WBC (Bld) [#/Vol] 8.6 10*3/uL Normal 4.4-11.0 [facility] Comment on above: Order Comment: 212.1 Performed By: #### L 500.2500, L501.9985, L501.5200, L100.0500, L503.0106, L501.9520 ####[facility] [address] [place], [address] Hemoglobin A1con 09-02-2025 HbA1c (Bld) [Mass fraction] 7.0 % High <=5.6 [facility] Comment on above: Order Comment: 212.1 Result Comment: Norm al < 5.7 % Prediabetic 5.7 - 6.4 % Diabetic >or= 6.5 % Please note range changes. Performed By: #### L 500.2500, L501.9985, L501.5200, L100.0500, L503.0106, L501.9520 ####[facility] [address] [place], [address] Magnesiumon 09-02-2025 Magnesium [Mass/Vol] 1.9 mg/dL Normal 1.5-2.2 [facility] Comment on above: Order Comment: 212.1 Performed By: #### L 500.2500, L501.9985, L501.5200, L100.0500, L503.0106, L501.9520 ####[facility] [address] [place], [address] Thyroid Stim Hormone (TSH)on 09-02-2025 TSH 2.420 uIU/mL Normal 0.300-4.20 0 [facility] Comment on above: Order Comment: 212.1 Performed By: #### L 500.2500, L501.9985, L501.5200, L100.0500, L503.0106, L501.9520 ####[facility] [address] [place], [address] Vitamin B12on 09-02-2025 Cobalamin (Vitamin B12) [Mass/Vol] 413 pg/mL Normal 180-914 [facility] Comment on above: Order Comment: 212.1 Performed By: #### L 500.2500, L501.9985, L501.5200, L100.0500, L503.0106, L501.9520 ####[facility] [address] [place], [address] KEPPRA (LEVETIRACETAM)on KEPPRA 13.3 ug/mL Normal 10.0-40.0 [facility] Comment on above: Order Comment: 212.1 Result Comment: Perf ormed at: [facility] [address] [id number] Director: Sherine Mendez MD, Phone: [phone] Performed By: #### L 100.0100, L3310.0000, L500.2500 ####[facility] [address] [place], [address] Basic Metabolic Profile (BMP )on 08-28-2025 BUN/CRE 29.3 RATIO High - [facility] Comment on above: Order Comment: 212.1 Performed By: #### L 100.0100, L3310.0000, L500.2500 ####[facility] [address] [place], [address] Calcium [Mass/Vol] 9.2 mg/dL Normal 7.6-11.0 [facility] Comment on above: Order Comment: 212.1 Performed By: #### L 100.0100, L3310.0000, L500.2500 ####[facility] [address] [place], [address] Chloride [Moles/Vol] 103 mmol/L Normal 98-108 [facility] Comment on above: Order Comment: 212.1 Performed By: #### L 100.0100, L3310.0000, L500.2500 ####[facility] [address] [place], [address] CO2 [Moles/Vol] 24.4 mmol/L Normal 21.0-32.0 [facility] Comment on above: Order Comment: 212.1 Performed By: #### L 100.0100, L3310.0000, L500.2500 ####[facility] [address] [place], [address] Creatinine [Mass/Vol] 0.89 mg/dL Normal 0.70-1.20 [facility] Comment on above: Order Comment: 212.1 Performed By: #### L 100.0100, L3310.0000, L500.2500 ####[facility] [address] [place], [address] GAP 12 Normal 5-15 [facility] Comment on above: Order Comment: 212.1 Performed By: #### L 100.0100, L3310.0000, L500.2500 ####[facility] [address] [place], [address] GFR/1.73 sq M.predicted among non-blacks MDRD (S/P/Bld) [Vol rate/Area] 86 mL/min/{1.73_m2} Normal >60 [facility] Comment on above: Order Comment: 212.1 Result Comment: mL/m in/1.73m2 CKD-EPI Creatinine Equation (2020) Performed By: #### L 100.0100, L3310.0000, L500.2500 ####[facility] [address] [place], [address] Glucose [Mass/Vol] 257 mg/dL High 70-99 [facility] Comment on above: Order Comment: 212.1 Performed By: #### L 100.0100, L3310.0000, L500.2500 ####[facility] [address] [place], [address] Potassium [Moles/Vol] 4.0 mmol/L Normal 3.3-5.1 [facility] Comment on above: Order Comment: 212.1 Performed By: #### L 100.0100, L3310.0000, L500.2500 ####[facility] [address] [place], [address] Sodium [Moles/Vol] 139 mmol/L Normal 133-145 [facility] Comment on above: Order Comment: 212.1 Performed By: #### L 100.0100, L3310.0000, L500.2500 ####[facility] [address] [place], [address] Urea nitrogen [Mass/Vol] 26 mg/dL High 4-19 [facility] Comment on above: Order Comment: 212.1 Performed By: #### L 100.0100, L3310.0000, L500.2500 ####[facility] [address] [place], [address] CBC W/Diff, Automatedon 10-0 9-5 Absolute Lymph 3.73 X10 3/uL Normal 0.83-4.51 [facility] Comment on above: Order Comment: 212.1 Performed By: #### L 100.0100, L3310.0000, L500.2500 ####[facility] [address] [place], [address] Absolute Neut 4.0 X10 3/uL Normal 2.0-7.7 [facility] Comment on above: Order Comment: 212.1 Performed By: #### L 100.0100, L3310.0000, L500.2500 ####[facility] [address] [place], [address] Basophils/100 WBC (Bld) 0.9 % Normal 0-1 [facility] Comment on above: Order Comment: 212.1 Performed By: #### L 100.0100, L3310.0000, L500.2500 ####[facility] [address] [place], [address] Eosinophils/100 WBC (Bld) 2.5 % Normal 0-5 [facility] Comment on above: Order Comment: 212.1 Performed By: #### L 100.0100, L3310.0000, L500.2500 ####[facility] [address] [place], [address] Erythrocyte distribution width (RBC) [Ratio] 13.2 % Normal 11.6-14.6 [facility] Comment on above: Order Comment: 212.1 Performed By: #### L 100.0100, L3310.0000, L500.2500 ####[facility] [address] [place], [address] Hematocrit (Bld) [Volume fraction] 43.0 % Normal 40-54 [facility] Comment on above: Order Comment: 212.1 Performed By: #### L 100.0100, L3310.0000, L500.2500 ####[facility] [address] [place], [address] Hemoglobin (Bld) [Mass/Vol] 14.5 g/dL Normal 13.0-16.5 [facility] Comment on above: Order Comment: 212.1 Performed By: #### L 100.0100, L3310.0000, L500.2500 ####[facility] [address] [place], [address] IG% 0.400 Normal 0.0-0.9 [facility] Comment on above: Order Comment: 212.1 Result Comment: IG% - Immature Granulocytes (promyelocytes, myelocytes andmetamyelocytes) > 1% indicates that a LEFT SHIFT is Present. Performed By: #### L 100.0100, L3310.0000, L500.2500 ####[facility] [address] [place], [address] Lymphocytes/100 WBC (Bld) 41.1 % High 19-41 [facility] Comment on above: Order Comment: 212.1 Performed By: #### L 100.0100, L3310.0000, L500.2500 ####[facility] [address] [place], [address] MCH (RBC) [Entitic mass] 29.9 pg Normal 27.0-32.0 [facility] Comment on above: Order Comment: 212.1 Performed By: #### L 100.0100, L3310.0000, L500.2500 ####[facility] [address] [place], [address] MCHC (RBC) [Mass/Vol] 33.7 g/dL Normal 32-36 [facility] Comment on above: Order Comment: 212.1 Performed By: #### L 100.0100, L3310.0000, L500.2500 ####[facility] [address] [place], [address] MCV (RBC) [Entitic vol] 88.7 fL Normal 80-94 [facility] Comment on above: Order Comment: 212.1 Performed By: #### L 100.0100, L3310.0000, L500.2500 ####[facility] [address] [place], [address] Monocytes/100 WBC (Bld) 11.0 % High 0-10 [facility] Comment on above: Order Comment: 212.1 Performed By: #### L 100.0100, L3310.0000, L500.2500 ####[facility] [address] [place], [address] Neutrophils/100 WBC (Bld) 44.1 % Low 47-70 [facility] Comment on above: Order Comment: 212.1 Performed By: #### L 100.0100, L3310.0000, L500.2500 ####[facility] [address] [place], [address] Nucleated RBC (Bld) [#/Vol] 0 10*3/uL Normal 0-5 [facility] Comment on above: Order Comment: 212.1 Performed By: #### L 100.0100, L3310.0000, L500.2500 ####[facility] [address] [place], [address] Platelet mean volume (Bld) [Entitic vol] 10.7 fL Normal 6.2-12.0 [facility] Comment on above: Order Comment: 212.1 Performed By: #### L 100.0100, L3310.0000, L500.2500 ####[facility] [address] [place], [address] Platelets (Bld) [#/Vol] 263 10*3/uL Normal 150-450 [facility] Comment on above: Order Comment: 212.1 Performed By: #### L 100.0100, L3310.0000, L500.2500 ####[facility] [address] [place], [address] RBC (Bld) [#/Vol] 4.85 10*6/uL Normal 4.6-6.2 [facility] Comment on above: Order Comment: 212.1 Performed By: #### L 100.0100, L3310.0000, L500.2500 ####[facility] [address] [place], [address] RDW SD 43.3 fl Normal 35.1-43.9 [facility] Comment on above: Order Comment: 212.1 Performed By: #### L 100.0100, L3310.0000, L500.2500 ####[facility] [address] [place], [address] WBC (Bld) [#/Vol] 9.1 10*3/uL Normal 4.4-11.0 [facility] Comment on above: Order Comment: 212.1 Performed By: #### L 100.0100, L3310.0000, L500.2500 ####[facility] [address] [place], [address] [facility] Telephone (NTBIBA) LUIS ARMANDO GRIFFITH ([id number]) 1945 M Date Time Provider Department 08/27/25 [facility] During your visit today, we recorded the following information about you: Davey Tsang 08/27/2025 3:50 PM Signed Called patient, left a detailed message regarding possible appointment with our [facility]. Awaiting callback Allergies As of Date: 08/27/2025 Noted Allergy Reaction HALDOL (HALOPERIDOL) 08/25/2025 14 - Other: See Comments Comments: Contraindicated in parkinson's REGLAN (METOCLOPRAMIDE) 08/25/2021 1 - Mental Status Change Comments: psychosis Date Reviewed: 08/26/2025 Reviewed by: Aman Salazar, RN - Fully Assessed Reason for Visit: Appointment [186] Prescriptions as of 09/16/2025 - acetaminophen (TYLENOL) 500 mg tablet Take 2 tablets by mouth three times a day. - bisacodyl (DULCOLAX) 10 mg supp 1 suppository by RECTAL route once daily as needed. - levETIRAcetam (KEPPRA) 500 mg tablet 1 tablet by ORAL/FEEDING TUBE route two times a day for 5 doses. - polyethylene glycol 3350 17 gram packet Take 1 packet by mouth once daily. Dissolve dose in 4 - 8 ounces of liquid and take as directed. - senna-docusate (SENNA-S) 8.6-50 mg per tablet Take 1 tablet by mouth two times a day. - alfuzosin SR (UROXATRAL) 10 mg 24 hr tablet Take 10 mg by mouth once daily. - budesonide (PULMICORT) 1 mg/2 mL nebulizer solution Use 1 mg via nebulizer four times daily. - buPROPion XL (WELLBUTRIN XL) 150 mg 24 hr tablet Take 150 mg by mouth once daily. - rOPINIRole (REQUIP) 1 mg tablet Take 1 mg by mouth three times a day. - insulin glargine,hum.rec.anlog (TOUJEO SOLOSTAR U-300 INSULIN SQ) Inject 50 Units subcutaneously every morning. 50 units once daily in AM - DOXEPIN HCL, BULK, MISC Take 25 mg by mouth daily at bedtime. - finasteride (PROSCAR) 5 mg tablet - [...] tablets by mouth three times daily. - hydroCHLOROthiazide (HYDRODIURIL, ESIDRIX) 12.5 mg tablet Take 12.5 mg by mouth once daily. - cholecalciferol, vitamin D3, (VITAMIN D3 50 MCG, 2,000 UNIT, GUMMIES) Take 4,000 Units by mouth once daily. - fluticasone hpkxshs-eeqlnzlnbbhg-tq lanterol (TRELEGY ELLIPTA) 200-62.5-25 mcg powder inhaler Inhale 1 Puff as instructed once daily. - pantoprazole DR (PROTONIX) 40 [...] once daily. Problem List As Of Date 08/27/2025 Noted Resolved Parkinsonism (HCC) [G20.C] 03/18/2022 Gait instability [R26.81] 03/18/2022 02/15/2023 Leg weakness, bilateral [R29.898] 08/11/2022 02/15/2023 Imbalance [R26.89] 08/11/2022 02/15/2023 Subdural hematoma (HCC) [S06.5XAA] 08/22/2025 Fall [W19.XXXA] 08/22/2025 Obesity, Class I, BMI 30-34.9 [E66.811] 08/23/2025 EMLISSA (obstructive sleep apnea) [G47.33] 08/23/2025 At risk for delirium [Z91.89] 08/25/2025 Memory loss [R41.3] 08/25/2025 DNR (do not resuscitate) discussion [Z71.89] 08/25/2025 Frailty syndrome in geriatric patient [R54] 08/25/2025 Goals of care, counseling/discussion [Z71.89] 08/25/2025 Full code status [Z78.9] 08/25/2025 Encounter Status:Closed by DAVEY TSANG on 09/16/[address] [facility] 25(OH)D3 SerPl-mCncon 2024 25-hydroxyvitamin D3 [Mass/Vol] 39.8 ng/mL Normal >=30.0 [facility] Comment on above: Order Comment: Speci men Type: BLOOD SPECIMENOrdering Facility: [facility] [place] [facility] Address: [address] [place] [address] Result Comment: Clas sification of 25 [place] Vitamin D status: Deficiency: <= 20.0 ng/ml. Insufficiency: 21.0-29.0 ng/ml. Sufficiency: >= 30.0 ng/ml. Performed By: #### 1 989-3 ####[facility] LABORATORYCLIA [id number] [place] [address] [place] Basic metabolic 2000 panelon 08-26-2025 Anion gap [Moles/Vol] 12 mmol/L Normal 8-15 [facility] Comment on above: Order Comment: Speci men Type: BLOOD SPECIMENOrdering Facility: [facility] [place] [facility] Address: [address] [place] [address] Performed By: #### 2 4321-2 ####[facility] LABORATORYCLIA [id number] [place] [address] [place] Calcium [Mass/Vol] 8.9 mg/dL Normal 8.5-10.2 [facility] Comment on above: Order Comment: Speci men Type: BLOOD SPECIMENOrdering Facility: [facility] [place] [facility] Address: [address] [place] [address] Performed By: #### 2 4321-2 ####[facility] LABORATORYCLIA [id number] [place] [address] [place] Chloride [Moles/Vol] 102 mmol/L Normal 98-107 [facility] Comment on above: Order Comment: Speci men Type: BLOOD SPECIMENOrdering Facility: [facility] [place] [facility] Address: [address] [place] [address] Performed By: #### 2 4321-2 ####[facility] LABORATORYCLIA [id number] [place] [address] [place] CO2 [Moles/Vol] 22 mmol/L Normal 22-30 [facility] Comment on above: Order Comment: Speci men Type: BLOOD SPECIMENOrdering Facility: [facility] [place] [facility] Address: [address] [place] [address] Performed By: #### 2 4321-2 ####[facility] LABORATORYCLIA [id number] [place] [address] [place] Creatinine [Mass/Vol] 0.91 mg/dL Normal 0.73-1.22 [facility] Comment on above: Order Comment: Speci men Type: BLOOD SPECIMENOrdering Facility: [facility] [facility] Address: [address] [place] [address] Performed By: #### 2 4321-2 ####[facility] LABORATORYCLIA [id number] [address] [place] eGFRcr SerPlBld CKD-EPI 2020 85 mL/min/1.73m??? Normal >=60 [facility] Comment on above: Order Comment: Speci men Type: BLOOD SPECIMENOrdering Facility: [facility] [place] [facility] Address: [address] [place] [address] Result Comment: Pascale mated Glomerular Filtration Rate (eGFR) is calculated using the 2020 CKD-EPI creatinine equation. This equation utilizes serum creatinine, sex, and age as parameters. The creatinine assay has traceable calibration to isotope dilution-mass spectrometry. Refer to KDIGO guidelines for clinical interpretation. In patients with unstable renal function, e.g. those with acute kidney injury, the eGFR may not accurately reflect actual GFR. Performed By: #### 2 4321-2 ####[facility] LABORATORYCLIA [id number] [place] [address] [place] Glucose [Mass/Vol] 179 mg/dL High 74-99 [facility] Comment on above: Order Comment: Devin melendez Type: BLOOD SPECIMENOrdering Facility: [facility] [place] [facility] Address: [address] [place] [address] Result Comment: The [place] Diabetes Association (ADA) provides guidance for cutoff values for fasting glucose and random glucose. The ADA defines fasting as no caloric intake for at least 8 hours. Fasting plasma glucose results between 100 to 125 mg/dL indicate increased risk for diabetes (prediabetes). Fasting plasma glucose results greater than or equal to 126 mg/dL meet the criteria for diagnosis of diabetes. In the absence of unequivocal hyperglycemia, results should be confirmed by repeat testing. In a patient with classic symptoms of hyperglycemia or hyperglycemic crisis, random plasma glucose results greater than or equal to 200 mg/dL meet the criteria for diagnosis of diabetes. Reference: Standards of Medical Care in Diabetes 2016, [place] Diabetes Association. Diabetes Care. 2016.39(Suppl 1). Performed By: #### 2 4321-2 ####[facility] LABORATORYCLIA [id number] [place] [address] [place] Potassium [Moles/Vol] 4.0 mmol/L Normal 3.7-5.1 [facility] Comment on above: Order Comment: Devin melendez Type: BLOOD SPECIMENOrdering Facility: [facility] [place] [facility] Address: [address] [id number] Performed By: #### 2 4321-2 ####[facility] LABORATORYCLIA [id number] [place] [id number] [place] Sodium [Moles/Vol] 136 mmol/L Normal 136-144 [facility] Comment on above: Order Comment: Speci men Type: BLOOD SPECIMENOrdering Facility: [facility] [place] [facility] Address: [address] [place] [address] Performed By: #### 2 4321-2 ####[facility] LABORATORYCLIA [id number] [address] [place] Urea nitrogen [Mass/Vol] 26 mg/dL High 9-24 [facility] Comment on above: Order Comment: Speci men Type: BLOOD SPECIMENOrdering Facility: [facility] [place] [facility] Address: [address] [place] [address] Performed By: #### 2 4321-2 ####[facility] LABORATORYCLIA [id number] [address] [place] CBC panel Auto (Bld)on 08-26 Erythrocyte distribution width (RBC) [Ratio] 13.4 % Normal 11.5-15.0 [facility] Comment on above: Order Comment: Speci men Type: BLOOD SPECIMENOrdering Facility: [facility] [place] [facility] Address: [address] [place] [address] Performed By: #### 5 8410-2 ####[facility] LABORATORYCLIA [id number] [address] STATES OF [facility] Hematocrit (Bld) [Volume fraction] 45.1 % Normal 39.0-51.0 [facility] Comment on above: Order Comment: Speci men Type: BLOOD SPECIMENOrdering Facility: [facility] [place] [facility] Address: [address] [place] [address] Performed By: #### 5 8410-2 ####[facility] LABORATORYCLIA [id number] [address] [place] Hemoglobin (Bld) [Mass/Vol] 14.7 g/dL Normal 13.0-17.0 [facility] Comment on above: Order Comment: Speci men Type: BLOOD SPECIMENOrdering Facility: [facility] [place] [facility] Address: [address] [place] [address] Performed By: #### 5 8410-2 ####[facility] LABORATORYCLIA [id number] [address] MCH (RBC) [Entitic mass] 29.4 pg Normal 26.0-34.0 [facility] Comment on above: Order Comment: Speci men Type: BLOOD SPECIMENOrdering Facility: [facility] [place] [facility] Address: [address] [place] [address] Performed By: #### 5 8410-2 ####[facility] LABORATORYCLIA [id number] [address] MCHC (RBC) [Mass/Vol] 32.6 g/dL Normal 30.5-36.0 [facility] Comment on above: Order Comment: Speci men Type: BLOOD SPECIMENOrdering Facility: [facility] [place] [facility] Address: [address] [place] [address] Performed By: #### 5 8410-2 ####[facility] LABORATORYCLIA [id number] [address] MCV (RBC) [Entitic vol] 90.2 fL Normal 80.0-100.[address] [facility] Comment on above: Order Comment: Speci men Type: BLOOD SPECIMENOrdering Facility: [facility] [place] [facility] Address: [address] [place] [address] Performed By: #### 5 8410-2 ####[facility] LABORATORYCLIA [id number] [address] Nucleated RBC (Bld) [#/Vol] 10*3/uL Normal <0.01 [facility] Comment on above: Order Comment: Speci men Type: BLOOD SPECIMENOrdering Facility: [facility] [place] [facility] Address: [address] [place] [address] Performed By: #### 5 8410-2 ####[facility] LABORATORYCLIA [id number] [address] Platelet mean volume (Bld) [Entitic vol] 10.5 fL Normal 9.0-12.7 [facility] Comment on above: Order Comment: Speci men Type: BLOOD SPECIMENOrdering Facility: [facility] [place] [facility] Address: [address] [place] [address] Performed By: #### 5 8410-2 ####[facility] LABORATORYCLIA [id number] [place] [id number] [facility] Platelets (Bld) [#/Vol] 248 10*3/uL Normal 150-400 [facility] Comment on above: Order Comment: Speci men Type: BLOOD SPECIMENOrdering Facility: [facility] [place] [facility] Address: [address] [place] [address] Performed By: #### 5 8410-2 ####[facility] LABORATORYCLIA [id number] [address] RBC (Bld) [#/Vol] 5.00 10*6/uL Normal 4.20-6.00 [facility] Comment on above: Order Comment: Speci men Type: BLOOD SPECIMENOrdering Facility: [facility] [place] [facility] Address: [address] [place] [address] Performed By: #### 5 8410-2 ####[facility] LABORATORYCLIA [id number] [address] WBC (Bld) [#/Vol] 9.05 10*3/uL Normal 3.70-11.00 [facility] Comment on above: Order Comment: Speci men Type: BLOOD SPECIMENOrdering Facility: [facility] [place] [facility] Address: [address] [place] [address] Performed By: #### 5 8410-2 ####[facility] LABORATORYCLIA [id number] [address] CNDSon 08-26-2025 CNDS HNO ID: [id number] Author: PATRICIA WALKER MD Service: General Surgery Author Type: Physician Type: Discharge Summary Filed: 08/26/2025 14:30 Note Text: DISCHARGE SUMMARY PATIENT NAME: Lius Armando Griffith Code Status: Full Code Highest Readmission Risk Score: 14 The 30 day readmissions risk score is derived from an internally validated risk model which evaluates patient level characteristics, utilization history, medication orders and lab results up until the day of discharge. Patients with a score of 39 or above are considered highest risk for readmission. Specific patient level drivers will be listed at the bottom of the summary. Admission Information Admission Information ADMIT DATE: 08/22/2025 DISCHARGE DATE: 08/26/2025 MY DOCTORS AND MEDICAL TEAM: My Main Hospital Doctor: Patricia Walker MD Primary Care Provider: Ja Cooley MD, MD My Medical Team Members: Treatment Team: Attending Provider: Patricia Walker MD Consulting: Carina Vaughn MD MY CONDITION AT DISCHARGE: Stable REASON I WAS IN THE HOSPITAL: Evaluation and treatment of injuries sustained following a fall SUMMARY OF WHAT HAPPENED WHILE I WAS IN THE HOSPITAL: Luis Armando Griffith is an 80-year old male who presented to [facility] ED on 08/22/25 following multiple falls at his assisted living facility. +Head strike, no loss of consciousness. +Aspirin, no anticoagulant use. Imaging obtained and showed: 1. Mixed density subdural hematoma along the left frontal parietal region measuring up to 1.1 cm in thickness. This likely represents a mixture of acute and subacute/chronic hematoma. There is mild mass effect on adjacent sulci and approximately 3-4 mm of midline shift from left to right. Given the above findings, patient was transferred to [facility] for further trauma evaluation and admitted to the ICU for close neurologic monitoring. Neurosurgery was consulted. He was given DDAVP for Aspirin reversal. Repeat imaging would show stable appearance of his injury. Neurosurgery recommended non-operative management and prophylactic Keppra x 7 days. PT/OT evaluated the patient and recommended acute rehab. On 08/26/25, patient was evaluated by trauma surgery and deemed medically stable to discharge to SNF. Patient is to follow-up with neurosurgery in 2 weeks with repeat imaging as scheduled. It is also recommended that he follow-up with his PCP in 1-2 weeks. OTHER PROBLEMS/DIAGNOSIS: Principal Problem: Subdural hematoma (HCC) Active Problems: Parkinsonism (HCC) Fall Obesity, Class I, BMI 30-34.9 MELISSA (obstructive sleep apnea) At risk for delirium Memory loss DNR (do not resuscitate) discussion Frailty syndrome in geriatric patient Goals of care, counseling/discussion Full code status Resolved Problems: * No resolved hospital problems. * OPERATIONS PERFORMED WHILE IN THE HOSPITAL: None IMPORTANT TEST/PROCEDURES: No procedures performed TEST RESULTS NOT AVAILABLE AT THIS TIME: No pending results Discharge Disposition Discharge Disposition: Jail Facility - Less than 30 Days Activity When You Leave the Hospital Limited to: No heavy lifting or strenuous exercise until cleared by neurosurgery No driving for: Until cleared by neurosurgery No prolonged bedrest, longer than 8 hours in a 24 hour period Diet Instructions Avoid Alcohol Drink 6 to 8 glasses of fluids per day Resume your pre-hospital diet For Pain When You Leave the Hospital Use acetaminophen (Tylenol) as recommended on the bottle Wound/Surgical Site Care Leave open to air Call Your Doctor If You have a severe headache You have difficulty urinating or pain when urinating You have lightheadedness, fainting, or confusion You have pain and swelling in your legs, especially if it is only on one side and not the other You have pain with urination, cloudy urine or foul smelling urine You have persistent nausea/vomiting over 24 hours You have swollen glands or cold and clammy skin Your temperature is greater than 101F Follow Up Appointments Follow-up Appointment Please obtain CT brain prior to outpatient appointment When: In 4 weeks Patient/Parents to call for appointment?: Scheduled Michelle Jaramillo APRN.[facility] [phone] [address] [address] PCP Requested Referral Follow-up Appointment When: In 2 weeks Patient/Parents to call for appointment?: Yes Ja Cooley MD [phone] [facility]. [facility]. [address] [facility] [facility] [address] PCP Requested Referral Additional Provider to Provider Information: No notes on file Exogenous Class 2 Obesity Treatment Team: Attending Provider: Patricia Walker MD Consulting: Carina Vaughn MD Active Hospital Problems Diagnosis POA Subdural hematoma (HCC) Yes At risk for delirium Yes Memory loss Unknown DNR (do not resuscitate) discussion Unknown Frailty syndrome in geriatri (more content not included)... Normal [facility] Basic metabolic 2000 panelon 08-25-2025 Anion gap [Moles/Vol] 11 mmol/L Normal 8-15 [facility] Comment on above: Order Comment: Speci men Type: BLOOD SPECIMENOrdering Facility: [facility] [facility] Address: [address] [place] [address] Performed By: #### 2 4321-2 ####[facility] LABORATORYCLIA [id number] [place] [address] [place] Calcium [Mass/Vol] 9.1 mg/dL Normal 8.5-10.2 [facility] Comment on above: Order Comment: Speci men Type: BLOOD SPECIMENOrdering Facility: [facility] [facility] Address: [address] [place] [address] Performed By: #### 2 4321-2 ####[facility] LABORATORYCLIA [id number] [place] [address] [place] Chloride [Moles/Vol] 103 mmol/L Normal 98-107 [facility] Comment on above: Order Comment: Speci men Type: BLOOD SPECIMENOrdering Facility: [facility] [place] [facility] Address: [address] [place] [address] Performed By: #### 2 4321-2 ####[facility] LABORATORYCLIA [id number] [place] [address] [place] CO2 [Moles/Vol] 26 mmol/L Normal 22-30 [facility] Comment on above: Order Comment: Speci men Type: BLOOD SPECIMENOrdering Facility: [facility] [place] [facility] Address: [address] [place] [address] Performed By: #### 2 4321-2 ####[facility] LABORATORYCLIA [id number] [place] [address] [place] Creatinine [Mass/Vol] 0.87 mg/dL Normal 0.73-1.22 [facility] Comment on above: Order Comment: Speci men Type: BLOOD SPECIMENOrdering Facility: [facility] [place] [facility] Address: [address] [place] [address] Performed By: #### 2 4321-2 ####[facility] LABORATORYCLIA [id number] [address] [place] eGFRcr SerPlBld CKD-EPI 2020 87 mL/min/1.73m??? Normal >=60 [facility] Comment on above: Order Comment: Speci men Type: BLOOD SPECIMENOrdering Facility: [facility] [place] [facility] Address: [address] [place] [address] Result Comment: Pascale mated Glomerular Filtration Rate (eGFR) is calculated using the 2020 CKD-EPI creatinine equation. This equation utilizes serum creatinine, sex, and age as parameters. The creatinine assay has traceable calibration to isotope dilution-mass spectrometry. Refer to KDIGO guidelines for clinical interpretation. In patients with unstable renal function, e.g. those with acute kidney injury, the eGFR may not accurately reflect actual GFR. Performed By: #### 2 4321-2 ####[facility] LABORATORYCLIA [id number] [place] [address] [place] Glucose [Mass/Vol] 153 mg/dL High 74-99 [facility] Comment on above: Order Comment: Devin melendez Type: BLOOD SPECIMENOrdering Facility: [facility] [place] [facility] Address: [address] [place] [address] Result Comment: The [place] Diabetes Association (ADA) provides guidance for cutoff values for fasting glucose and random glucose. The ADA defines fasting as no caloric intake for at least 8 hours. Fasting plasma glucose results between 100 to 125 mg/dL indicate increased risk for diabetes (prediabetes). Fasting plasma glucose results greater than or equal to 126 mg/dL meet the criteria for diagnosis of diabetes. In the absence of unequivocal hyperglycemia, results should be confirmed by repeat testing. In a patient with classic symptoms of hyperglycemia or hyperglycemic crisis, random plasma glucose results greater than or equal to 200 mg/dL meet the criteria for diagnosis of diabetes. Reference: Standards of Medical Care in Diabetes 2016, [place] [employer]. Diabetes Care. 2016.39(Suppl 1). Performed By: #### 2 4321-2 ####[facility] LABORATORYCLIA [id number] [place] [address] [place] Potassium [Moles/Vol] 4.6 mmol/L Normal 3.7-5.1 [facility] Comment on above: Order Comment: Devin melendez Type: BLOOD SPECIMENOrdering Facility: [facility] [facility] Address: [address] [place] [address] Performed By: #### 2 4321-2 ####[facility] LABORATORYCLIA [id number] [place] [address] [place] Sodium [Moles/Vol] 140 mmol/L Normal 136-144 [facility] Comment on above: Order Comment: Speci men Type: BLOOD SPECIMENOrdering Facility: [facility] [facility] Address: [address] [place] [address] Performed By: #### 2 4321-2 ####[facility] LABORATORYCLIA [id number] [address] [place] Urea nitrogen [Mass/Vol] 14 mg/dL Normal 9-24 [facility] Comment on above: Order Comment: Speci men Type: BLOOD SPECIMENOrdering Facility: [facility] [facility] Address: [address] [place] [address] Performed By: #### 2 4321-2 ####[facility] LABORATORYCLIA [id number] [address] OF [facility] CBC panel Auto (Bld)on 08-25 Erythrocyte distribution width (RBC) [Ratio] 13.3 % Normal 11.5-15.0 [facility] Comment on above: Order Comment: Speci men Type: BLOOD SPECIMENOrdering Facility: [facility] [facility] Address: [address] [place] [address] Performed By: #### 5 8410-2 ####[facility] LABORATORYCLIA [id number] [address] [place] Hematocrit (Bld) [Volume fraction] 46.3 % Normal 39.0-51.0 [facility] Comment on above: Order Comment: Speci men Type: BLOOD SPECIMENOrdering Facility: [facility] [facility] Address: [address] [place] [address] Performed By: #### 5 8410-2 ####[facility] LABORATORYCLIA [id number] [address] [place] Hemoglobin (Bld) [Mass/Vol] 15.8 g/dL Normal 13.0-17.0 [facility] Comment on above: Order Comment: Speci men Type: BLOOD SPECIMENOrdering Facility: [facility] [facility] Address: [address] [place] [address] Performed By: #### 5 8410-2 ####[facility] LABORATORYCLIA [id number] [address] MCH (RBC) [Entitic mass] 29.8 pg Normal 26.0-34.0 [facility] Comment on above: Order Comment: Speci men Type: BLOOD SPECIMENOrdering Facility: [facility] [facility] Address: [address] [place] [address] Performed By: #### 5 8410-2 ####[facility] LABORATORYCLIA [id number] [address] MCHC (RBC) [Mass/Vol] 34.1 g/dL Normal 30.5-36.0 [facility] Comment on above: Order Comment: Speci men Type: BLOOD SPECIMENOrdering Facility: [facility] [place] [facility] Address: [address] [place] [address] Performed By: #### 5 8410-2 ####[facility] LABORATORYCLIA [id number] [address] MCV (RBC) [Entitic vol] 87.4 fL Normal 80.0-100.[address] [facility] Comment on above: Order Comment: Speci men Type: BLOOD SPECIMENOrdering Facility: [facility] [place] [facility] Address: [address] [place] [address] Performed By: #### 5 8410-2 ####[facility] LABORATORYCLIA [id number] [address] Nucleated RBC (Bld) [#/Vol] 10*3/uL Normal <0.01 [facility] Comment on above: Order Comment: Speci men Type: BLOOD SPECIMENOrdering Facility: [facility] [place] [facility] Address: [address] [place] [address] Performed By: #### 5 8410-2 ####[facility] LABORATORYCLIA [id number] [address] Platelet mean volume (Bld) [Entitic vol] 9.8 fL Normal 9.0-12.7 [facility] Comment on above: Order Comment: Speci men Type: BLOOD SPECIMENOrdering Facility: [facility] [place] [facility] Address: [address] [place] [address] Performed By: #### 5 8410-2 ####[facility] LABORATORYCLIA [id number] [address] OF [facility] Platelets (Bld) [#/Vol] 277 10*3/uL Normal 150-400 [facility] Comment on above: Order Comment: Speci men Type: BLOOD SPECIMENOrdering Facility: [facility] [facility] Address: [address] [place] [address] Performed By: #### 5 8410-2 ####[facility] LABORATORYCLIA [id number] [address] OF [facility] RBC (Bld) [#/Vol] 5.30 10*6/uL Normal 4.20-6.00 [facility] Comment on above: Order Comment: Speci men Type: BLOOD SPECIMENOrdering Facility: [facility] [place] [facility] Address: [address] [place] [address] Performed By: #### 5 8410-2 ####[facility] LABORATORYCLIA [id number] [address] WBC (Bld) [#/Vol] 7.72 10*3/uL Normal 3.70-11.00 [facility] Comment on above: Order Comment: Speci men Type: BLOOD SPECIMENOrdering Facility: [facility] [place] [facility] Address: [address] [place] [address] Performed By: #### 5 8410-2 ####[facility] LABORATORYCLIA [id number] [place] [id number] [facility] CONSULTon 08-25-2025 CONSULT HNO ID: [id number] Author: AMAN CROWELL PA Service: Geriatrics Author Type: Physician Intake Specialist Type: Consults Filed: 08/25/2025 10:42 Note Text: GERIATRIC SURGERY SERVICE CONSULT NOTE PATIENT NAME: Luis Armando Griffith [id number] -* CONSULT TO GERIATRICS (AK) Consult performed by: Aman Crowell PA Consult ordered by: Tresa Cook MD Reason for consult: Fall with SDH, medication management, Hx parkinsons HISTORY OF PRESENT ILLNESS: Luis Armando Griffith is a 80 year old male with a past medical history of HTN, HLD, COPD, MELISSA, T2DM, BPH, parkinsonism, anxiety, insomnia, recurrent falls, and WALES who was admitted on 08/22/2025 for subdural hematoma. [place], was taken to [facility] ED. Imaging revealed a subacute to chronic subdural hematoma along the left dorsal lateral convexity with midline shift 5.8mm to the right, was transferred to [facility] for evaluation. Imaging at [facility] revealed mixed density subdural hematoma along the left frontal parietal region measuring up to 1.1 cm in thickness which likely represents a mixture of acute and subacute/chronic hematoma, mild mass effect on adjacent sulci and approximately 3-4 mm of midline shift from left toright. Patient was admitted under trauma to [facility]. Neurosurgery was consulted for GLF, recommended conservative management and repeating imaging. Repeat imaging concerning for interval increase in density of the L holohemispheric subdural hemorrhage reflecting interval bleeding, mild interval increase in thickness measuring 1.2 cm compared to 1.1 cm on the prior study, and unchanged mass effect and midline shift towards R. Neurosurgery recommended transfer to ICU. Patient later stable for [facility] on 08/23. Determined to be HIGH RISK for delirium with DEAR assessment. Negative CAM-ICUs and negatives BCAM noted. Patient is awake in the hospital bed, blinds open. Pleasant and cooperative. Able to state name, age, , place, month, year, why he is at the hospital and hospital course. Does not appear to be hallucainting. Slept on and off last night, voiding frequently since being on flomax, no BM, states last BM was 3 days ago, endorses history of constipation with parkinson's, tolerating meals. Information was obtained from the patient. Mentation- AANDO X3, states he forgetful, was depressed but feels like mood is better, really wants to go back to [place] and also states he really misses his spouse, denies ever being diagnosed with dementia, states he has parkinson's, very aware of what medications he takes. Sensory impairment- Endorses vision impairment, can see shadows. Endorses hearing impairment, has hearing aids but does not wear. Home- States he lives at [facility], independent in B-ADLs, assistance/dependent in I-ADLs, no longer driving, denies safety concerns at this time. Mobility- Denies any other falls within the last 6 months Uses a walker, wheelchair for longer distances or if leaving [place] for the day. Appetite- States appetite has been fine, does not think he has been losing weight, meals are prepared by [place]. Mood- History of depressed, states he takes medications for this but does not feel like he needs to take them anymore, was not interested in spiritual care, music therapy, etc. States he just misses his spouse. Sleep- Endorses problems with sleep, states he is now on flomax and now urinating more frequently. Hospitalizations- No other ED visits or hospital admissions noted within the last 6 months. Former smoker. Denies alcohol or illicit drug use. Subjective PCP: Ja Cooley MD, MD Past Medical History: PAST MEDICAL HISTORY Diagnosis Date Chronic obstructive pulmonary disease (COPD) ([facility]) Diabetes ([facility]) Gait instability 03/18/2022 Generalized anxiety disorder H/O seasonal allergies Imbalance 08/11/2022 Leg weakness, bilateral 08/11/2022 Mixed hyperlipidemia MELISSA (obstructive sleep apnea) 08/23/2025 Sleep apnea Past Surgical History: PAST SURGICAL HISTORY Procedure Laterality Date ADDITIONAL SPINAL FUSION 2000 L4, L3 ELBOW SURGERY HX 1994 Left EXTENSIVE FOREARM SURGERY Left 07/04/2018 Overgrown bone had shortened and plate placed- Per Patient LAPAR LUMBAR FUSION ADDITIONAL 2019 S LEAD SPINAL CORD STIMULATOR 05/19/2021 TOTAL KNEE REPLACEMENT Left 08/14/2006 TOTAL KNEE REPLACEMENT Right 07/30/2012 Family History: FAMILY HISTORY Problem Relation Age of Onset Leukemia Father Coronary Artery Disease Mother Tremor Mother Thyroid Sister COPD Sister Tremor Sister Thyroid Sister DVT Sister Tremor Sister Thyroid Sister Thyroid Sister Diabetes Maternal Grandfather Hypertension No Family History Hyperlipidemia No Family History Blood Clots No Family History Factor 5 Leiden No Family History Stroke No Family History Systemic Lupus Erythematosus No Family History Multiple Sclerosis No Famil (more content not included)... Normal [facility] THERAPY NTon 08-25-2025 THERAPY NT HNO ID: [id number] Author: LÓPEZ KNOX CCC-SUPERVISOR CRACK OFF Service: Speech/Swallow Author Type: Speech Language Pathologist Type: Therapy (PT/OT/Speech/Resp) Filed: 08/25/2025 09:50 Note Text: Speech Therapy Speech Evaluation SERVICE DATE: 08/25/2025 SERVICE TIME: 899 to 919 ROOM: [id number] IMPRESSION Communication deficits identified: Cognitive deficits RECOMMENDATIONS Nursing Recommendations Allow for extended time for thought processing Response to Therapy Interventions: Good participation in activities Rehabilitation Precautions: Cognitive Linguistics Deficits DISCHARGE RECOMMENDATIONS Recommended Discharge Disposition: Acute Rehab Justification for Recommended Discharge Disposition: Patient requires an intensive inpatient rehabilitation therapy program due to:, new/worsened cognitive deficits related to current diagnosis, requires active, intensive and ongoing intervention of multiple therapy disciplines CURRENT HOSPITAL COURSE 08/22 admitted after multiple falls. 08/22 CT brain with mixed density subdural hematoma along the left frontal parietal region. Reason for Speech Therapy Consult: speech, language, cognitive evaluation Relevant Past Medical History: Parkinson's disease HOME ENVIRONMENT / PRIOR FUNCTIONAL LEVEL Prior Functional Level: Required Assistance Patient Lives With: Facility Care (Assisted living) Assistance Available: 24 Hour Prior Swallowing Function/Diet Textures: Regular Consistency, Thin Liquids IDDSI Level 0 SUBJECTIVE The patient is alert, talking in logical sentences and able to participate. THERAPY DIAGNOSIS Unspecified symbolic dysfunctions TREATMENT INTERVENTIONS Speech Language Eval (50349) Skilled Treatment Time (minutes): 20 $ Speech Language Eval (08266) Billed Units: 1 unit TRAINING AND EDUCATION PROVIDED IN Cognitive Linguistic Strategies, Expressive Language Skills, Receptive Language Skills THERAPEUTIC SKILLS USED Education on role of discipline / importance of activity, Verbal cuing, Instruction in self-monitoring / self-assessment OBJECTIVE Current Status Oral Hygiene: Clear, moist oral cavity Dentition: Retains Natural Dentition Current Feeding Method: Oral Current Diet Textures: Regular Consistency, Thin Liquids IDDSI Level 0 Current Level Of Communication: Verbal Current Management Of Secretions: Able to self-manage Oral Motor Exam: Within Functional Limits COGNITION Cognitive Status: Within Functional Limits For Current Session Except Cognitive Deficits: Memory Deficits, Executive Function Deficit Memory Deficits: Short Term Executive Function Deficits: Problem Solving, Safety Awareness, Reasoning/Inferences Problem Solving Comments: slow to respond yet accurate Safety Awareness Comments: slow to respond Reasoning/Inferences Comments: slow to respond yet accurate The Cognitive Log (Cog-Log) is designed to be a quick quantitative measure of cognition status for use at the bedside with rehabilitation inpatients. It is intended for individuals who have achieved consistent accurate orientation, such as measured by the Orientation Log (O-Log). The Cog-Log can be used to document cognitive progress on a daily basis. All items are scored from 0 to 3 for a total possible score of 30. 3 = correct spontaneous response 2 = correct upon logical cueing (e.g., That was yesterday, so today must be...) 1 = correct upon multiple choice or phonemic cueing 0 = incorrect despite cueing, inappropriate response, or unable to respond Stimulus Response/Score Date 12/23 Time 11/22 Name of Hospital 01/20 Repeat Address 01/20 20-1 01/20 Months Reversed 11/22 30 Seconds 01/20 [facility] 11/22 Go/No-Go 01/20 Address Recall Total SPEECH/VOICE/LANGUAGE Speech Production: Within Functional Limits Expressive and Receptive Language: Within Functional Limits Except Auditory Comprehension Deficits: 1-Step Commands - (%): 100 2-Step Commands - (%): 100 Simple Yes/No Questions - (%): 100 Picture Identification - (%): 100 Verbal Expression Deficits: Automatic Speech - (%): 100 Confrontational Naming - (%): 100 Expressing Basic Needs/Wants - (%): 100 Expressing Complex Information - (%): 100 Conversational Speech - (%): 100 GOALS SPEECH / LANGUAGE: Patient will demonstrate knowledge of taught compensatory strategies for functional communication, COGNITION: Patient will demonstrate knowledge of taught compensatory strategies for functional cognitive-linguistic skills Cognitive Goals: Patient will demonstrate orientation to person, place, time, situation to 100% accuracy given minimal cues so that the patient can more actively engage in own personal care and recovery. Patient will answer simple, complex, 'WH-' questions with 90% accuracy given minimal cues to effectively respond to caregivers inquiry pertaining to immediate medical/ADL care. Patient will improve functional auditory martin (more content not included)... Normal [facility] Basic metabolic 2000 panelon 08-24-2025 Anion gap [Moles/Vol] 10 mmol/L Normal 8-15 [facility] Comment on above: Order Comment: Speci men Type: BLOOD SPECIMENOrdering Facility: [facility] [place] [facility] Address: [address] [place] [address] Performed By: #### 2 4321-2 ####[facility] LABORATORYCLIA [id number] [place] [address] [place] Calcium [Mass/Vol] 8.7 mg/dL Normal 8.5-10.2 [facility] Comment on above: Order Comment: Speci men Type: BLOOD SPECIMENOrdering Facility: [facility] [place] [facility] Address: [address] [place] [address] Performed By: #### 2 4321-2 ####[facility] LABORATORYCLIA [id number] [place] [address] [place] Chloride [Moles/Vol] 98 mmol/L Normal 98-107 [facility] Comment on above: Order Comment: Speci men Type: BLOOD SPECIMENOrdering Facility: [facility] [place] [facility] Address: [address] [place] [address] Performed By: #### 2 4321-2 ####[facility] LABORATORYCLIA [id number] [place] [address] [place] CO2 [Moles/Vol] 25 mmol/L Normal 22-30 [facility] Comment on above: Order Comment: Speci men Type: BLOOD SPECIMENOrdering Facility: [facility] [place] [facility] Address: [address] [place] [address] Performed By: #### 2 4321-2 ####[facility] LABORATORYCLIA [id number] [place] [address] [place] Creatinine [Mass/Vol] 0.80 mg/dL Normal 0.73-1.22 [facility] Comment on above: Order Comment: Speci men Type: BLOOD SPECIMENOrdering Facility: [facility] [place] [facility] Address: [address] [place] [address] Performed By: #### 2 4321-2 ####[facility] LABORATORYCLIA [id number] [place] [address] [place] eGFRcr SerPlBld CKD-EPI 2020 89 mL/min/1.73m??? Normal >=60 [facility] Comment on above: Order Comment: Speci men Type: BLOOD SPECIMENOrdering Facility: [facility] [place] [facility] Address: [address] [place] [address] Result Comment: Pascale mated Glomerular Filtration Rate (eGFR) is calculated using the 2020 CKD-EPI creatinine equation. This equation utilizes serum creatinine, sex, and age as parameters. The creatinine assay has traceable calibration to isotope dilution-mass spectrometry. Refer to KDIGO guidelines for clinical interpretation. In patients with unstable renal function, e.g. those with acute kidney injury, the eGFR may not accurately reflect actual GFR. Performed By: #### 2 4321-2 ####[facility] LABORATORYCLIA [id number] [place] [address] [place] Glucose [Mass/Vol] 143 mg/dL High 74-99 [facility] Comment on above: Order Comment: Devin melendez Type: BLOOD SPECIMENOrdering Facility: [facility] [place] [facility] Address: [address] [place] [address] Result Comment: The [place] Diabetes Association (ADA) provides guidance for cutoff values for fasting glucose and random glucose. The ADA defines fasting as no caloric intake for at least 8 hours. Fasting plasma glucose results between 100 to 125 mg/dL indicate increased risk for diabetes (prediabetes). Fasting plasma glucose results greater than or equal to 126 mg/dL meet the criteria for diagnosis of diabetes. In the absence of unequivocal hyperglycemia, results should be confirmed by repeat testing. In a patient with classic symptoms of hyperglycemia or hyperglycemic crisis, random plasma glucose results greater than or equal to 200 mg/dL meet the criteria for diagnosis of diabetes. Reference: Standards of Medical Care in Diabetes 2016, [place] Diabetes Association. Diabetes Care. 2016.39(Suppl 1). Performed By: #### 2 4321-2 ####[facility] LABORATORYCLIA [id number] [place] [id number] [place] Potassium [Moles/Vol] 4.2 mmol/L Normal 3.7-5.1 [facility] Comment on above: Order Comment: Devin melendez Type: BLOOD SPECIMENOrdering Facility: [facility] [place] [facility] Address: [address] [place] [id number] Performed By: #### 2 4321-2 ####[facility] LABORATORYCLIA [id number] [place] [address] [place] Sodium [Moles/Vol] 133 mmol/L Low 136-144 [facility] Comment on above: Order Comment: Speci men Type: BLOOD SPECIMENOrdering Facility: [facility] [place] [facility] Address: [address] [place] [address] Performed By: #### 2 4321-2 ####[facility] LABORATORYCLIA [id number] [place] [id number] [facility] Urea nitrogen [Mass/Vol] 17 mg/dL Normal 9-24 [facility] Comment on above: Order Comment: Speci men Type: BLOOD SPECIMENOrdering Facility: [facility] [place] [facility] Address: [address] [place] [address] Performed By: #### 2 4321-2 ####[facility] LABORATORYCLIA [id number] [address] CONSULT PROGon 08-24-2025 CONSULT PROG HNO ID: [id number] Author: CAN GAYLE APRN.YOUTH CAREER SPECIALIST Service: Neurosurgery Author Type: Nurse Practitioner Type: Consult Progress Note Filed: 08/24/2025 14:32 Note Text: Neurosurgery Progress Note SERVICE DATE: 08/24/2025 SUBJECTIVE: NAEON. Patient denies headache or dizziness, reporting his head feels better today. OBJECTIVE: Vitals: Temp (24hrs), Av.6 ?C (97.9 ?F), Min:36.4 ?C (97.6 ?F), Max:36.7 ?C (98.1 ?F) BP 135/93 Pulse 85 Temp 36.7 ?C (98.1 ?F) (Axillary) Resp 18 Ht 177.8 cm (5' 10) Wt 115.2 kg (253 lb 15.5 oz) SpO2 94% BMI 36.44 kg/m? O2 Therapy: Room Air IANDO: Date 08/23/25699 - 08/24/2565808/24/25699 - 08/25/25658 Shift 1616-9319 4366-3723 2346-6078 24 Hour Total 5646-2289 1771-7850 2679-5053 24 Hour Total INTAKE IV 300 300 Volume (mL) (sodium phosphate 45 mmol in D5W 250 mL) 250 250 Volume (mL) (magnesium sulfate iv piggyback in sterile water 2 g 50 mL) 50 50 Shift Total 300 300 OUTPUT Urine 875 875 Void (ml) 875 875 Urine Not Saved. 1 x 1 x Shift Total 875 875 Weight (kg) 115.2 115.2 115.2 115.2 115.2 115.2 115.2 115.2 MEDICATIONS Current Facility-Administered Medications Medication Dose Route Frequency insulin lispro injection (rapid acting) (ADMElog) SUBCUTANEOUS w MEALS AND HS NaCl 0.9% iv flush bag 20 mL INTRAVENOUS PRN tamsulosin 0.4 mg cap(s) (FLOMAX) 0.4 mg ORAL BID pravastatin 80 mg tab(s) (PRAVACHOL) 80 mg ORAL DAILY dextrose 15 gram/32 mL 15 g (TRUEPLUS) 15 g ORAL PRN Or glucagon 1 mg injection 1 mg INTRAMUSCULAR PRN Or dextrose 10% iv bolus 12.5 g INTRAVENOUS PRN carbidopa-levodopa 25-100 mg 2 tablet (SINEMET 25-100) 2 tablet ORAL 3 times per day acetaminophen 1,000 mg tab(s) (TYLENOL) 1,000 mg ORAL q 6 H oxyCODONE IR 2.5-5 mg tab(s) (ROXICODONE) 2.5-5 mg ORAL q 6 H PRN HYDROmorphone 0.2 mg injection (DILAUDID) 0.2 mg INTRAVENOUS q 4 H PRN levETIRAcetam 500 mg tab(s) (KEPPRA) 500 mg ORAL/FEEDING TUBE BID ondansetron 4 mg tab(s) (ZOFRAN) 4 mg ORAL q 6 H PRN Or ondansetron (PF) 4 mg injection (ZOFRAN) 4 mg INTRAVENOUS q 6 H PRN polyethylene glycol 3350 17 g packet 17 g ORAL DAILY Labs: Recent Labs 08/24/25 0551 08/23/25 0415 08/22/25 1143 NA 133* 137 135* K 4.2 3.7 3.8 CHLOR 98 101 99 CO2 25 BUN 17 22 21 CREAT 0.80 0.79 0.85 GLUC 143* 78 152* ANION 10 11 11 CA 8.7 8.5 8.9 MG -- 1.6* -- P -- 3.4 -- ALB -- -- 3.9 AST -- -- 10* ALT -- -- <5* ALKPHOS -- -- 88 TBILI -- -- 0.8 WBC -- 7.97 8.62 HB -- 13.3 13.7 HCT -- 40.5 41.8 PLT -- 226 249 INR -- -- 1.1 Exam: GENERAL: Awake and alert; NAD; cooperative; pleasant NEURO: Oriented to self and year, somewhat confused this am, reoriented to place and events; speech clear and fluent; EVANS; no arm drift STRENGTH: 5/5 throughout HEENT: Abrasion to nose and above left eye; Normocephalic; atraumatic; perrl/eomi; no facial droop LUNGS: Unlabored breathing CARDIAC: Rate and rhythm as above ABDOMEN: Soft, non-tender, non-distended EXTREMITIES: No deformities, No edema SKIN: Skin color normal; Temperature normal; no rashes or lesions ASSESSMENT AND PLAN: Active Hospital Problems Diagnosis Date Noted Subdural hematoma (HCC) 08/22/2025 Obesity, Class I, BMI 30-34.9 08/23/2025 MELISSA (obstructive sleep apnea) 08/23/2025 Fall 08/22/2025 Parkinsonism (HCC) 03/18/2022 Mr. Griffith is a 80 year old male with PMHx significant for Parkinson's on ASA, who presents as a trauma multiple falls, found to have left convexitymSDH with 3-4 mm MLS -neuro as above -CT head stable, reviewed with Dr. Herrera -neuro checks Q4hrs -PT/OT eval and TX -hold ASA until after follow up -Keppra 500mg BID for 14 doses -dispo: pending -discussed with Dr. Herrera Parts of this note may have been copied from one of my previous notes and remain pertinent. The documentation has been reviewed and edited as necessary to support the clinical decision making for today's visit. Addendum: follow up in 2 weeks with neurotrauma clinic and repeat imaging, requested. We will sign off, please call with any questions or concerns. Discussed with Dr. Herrera. SIGNATURE: Can Gayle APRN.CNP PATIENT NAME: Luis Armando Griffith DATE: August 24, 2025 TIME: 08:30 AM Pager: [phone] [facility] THERAPY NTon 10-05-2025 THERAPY NT HNO ID: [id number] Author: JAMES LEVY OTR/Eric Service: Occupational Therapy Author Type: Occupational Therapist Type: Therapy (PT/OT/Speech/Resp) Filed: 08/24/2025 15:51 Note Text: Occupational Therapy Evaluation Summary SERVICE DATE: 08/24/2025 SERVICE TIME: 1455 to 1513 ROOM: [place] [address] OT 6 Clicks Score: 14 DISCHARGE RECOMMENDATIONS Acute Rehab Recommended Discharge Disposition Due to: Patient requires active, intensive rehabilitation by multiple therapy disciplines. Anticipate the patient will tolerate 3 hours of therapy per day., ADL impairment ASSESSMENT Response to Therapy Interventions: Good Participation in Activities PRECAUTIONS Fall Risk, Bed/Chair Alarm CURRENT HOSPITAL COURSE Patient presents as a transfer from [place] due to fall and sustaining L SDH. Patient required ICU level care due to initial increase in size, but now on RNF Relevant Past Medical History: Parkinsons, COPD, poor vision HOME LIVING Patient Lives With: Facility Care Assistance Available: Part-Time Entry To Home: No Stairs Number Of Stairs To Bed/Bath: 0 Tub/Shower Type: walk in shower Equipment Owned: Wheelchair- Manual, Walker- Wheeled PRIOR FUNCTIONAL LEVEL Within Functional Limits Patient reports that he is independent with ability to get in wheelchair and ambulate short distances. States that he is independent with ADLs, provides transportation due to poor vision/ Baseline Cognition: Oriented to self, Oriented to place, Oriented to time, Oriented to situation SUBJECTIVE agreeable to session COGNITION Orientation Deficits: Confused, Not oriented to Time, Not oriented to Situation Responsiveness: Drowsy Follows Commands: 1-step Commands, Cueing Needed Cueing to Follow Commands: Moderate Memory Deficits: Short Term Executive Function Deficits: Safety Awareness, Insight to Deficits, Sequencing 4AT Score: 2 (08/24/25) Delirium Positive/Negative: Negative (08/24/25) THERAPY DIAGNOSIS Reduced mobility-other, Decreased activities of daily living (ADL), Muscle Weakness (generalized), Unsteadiness on feet, General symptoms and signs-other TREATMENT INTERVENTIONS Evaluation Skilled Treatment Time (minutes): 18 $ Evaluation - Moderate (19354) Billed Units: 1 unit TRAINING AND EDUCATION PROVIDED Assistive Device Use, Bed Mobility, Benefits of In-Hospital Mobility, Cognitive Stimulation Activities, Discharge Planning, Disease Specific Education, Role of Occupational Therapy, Safety/Judgment, Standing Balance to Improve [place] with ADLs/Self-Care, Transfer - Sit to Stand, Toileting , Sitting Balance to Improve [place] with ADLs/Self-Care, Functional Mobility Involving ADLs THERAPEUTIC SKILLS USED Activity Dosing, Cues for Sequencing/Proper Technique for Activity, Cuing Tactile, Cuing Verbal, Cuing Visual, Physical Assist FUNCTIONAL STATUS Activities of Daily Living Assist Level Additional Information Feeding Set Up Grooming Minimal Assistance Bathing Upper Body Moderate Assistance Bathing Lower Body Maximal Assistance Dressing Upper Body Moderate Assistance Dressing Lower Body Maximal Assistance Toileting Maximal Assistance Mobility Assist Level Additional Information Bed Mobility Supine To Sit: Minimal Assistance Sit To Supine: Minimal Assistance Sit to Stand Minimal Assistance Stand to Sit Minimal Assistance Bed to Chair Toilet/Commode Shower Functional Mobility Minimal Assistance Functional Mobility Device: Wheeled Walker STRENGTH Right Upper Extremity Strength Comments: 3/5 Left Upper Extremity Strength Comments: 3/5 BALANCE Static Standing Balance: Fair Dynamic Standing Balance: Fair GOALS Grooming with: Set Up Upper Body Bathing with: Stand By Assistance Upper Body Dressing with: Stand By Assistance Lower Body Bathing with: Minimal Assistance Lower Body Dressing with: Minimal Assistance Toilet Hygiene with: Minimal Assistance Chair Transfer with: Stand By Assistance Toilet Transfer with: Stand By Assistance Tolerate (minutes of functional activity): 30 Functional Activity with: Stand By Assistance Additional Goal 1: patient will complete formal assessment WFL Demonstrate Competence with Education with: Stand By Assistance (safety, fall prevention) Increased Awareness of Cognitive Impairments as Related to ADL's/IADL's: Verbalized, Demonstrated Rehab Potential: Good Good Rehab Potential Due To: Good motivation ACUTE CARE TREATMENT PLAN OT Frequency: 2 Times Per Week Treatment Interventions: Education, Self Care/Home Management, Energy Conservation Training, Strengthening, Functional Mobility Training, Balance Training, Cognitive Training Plan for Next Visit: Bathing Training, Dressing Training SIGNATURE: MANUEL Saravia/Eric PATIENT NAME: Luis Armando Griffith DATE: August 24, 2025 TIME: 3:[address] [facility] ALLIED HEALTHon 08-23-2025 ALLIED HEALTH HNO ID: [id number] Author: JOHN SAMUEL RT(R) Service: Radiology Author Type: Technologist Type: Allied Health Filed: 08/23/2025 01:37 Note Text: Radiology Service Progress Note PATIENT NAME: Luis Armando Griffith DATE OF SERVICE: August 23, 2025 TIME: 1:37 AM PATIENT IDENTITY VERIFICATION COMPLETED USING TWO (2) IDENTIFIERS: Name and Date of confirmed by patient verbally and Name and Date of confirmed by identification band. FALL SCREENING: Has the patient had 2 falls in the last year or 1 fall with injury or currently using an Ambulatory Assistive Device (Walker, Cane, Wheelchair, Crutches, etc.)? Inpatient: Screened on floor PATIENT GENDER DATA: Assigned male at PATIENT RELEVANT IMPLANT DATA REVIEWED: Not Applicable PATIENT PRESENTS WITH AN IMPLANTABLE OR ATTACHED RECORDS SECTION SUPERVISOR: No RADIOLOGY DEPARTMENT: CT; Exam(s) Completed: Brain . Anesthesia: No PERIPHERAL IV DATA: Not applicable SIGNED BY: RT Will(R) August 23, 2025 1:[address] [facility] Basic metabolic 2000 panelon 08-23-2025 Anion gap [Moles/Vol] 11 mmol/L Normal 8-15 [facility] Comment on above: Order Comment: Speci men Type: BLOOD SPECIMENOrdering Facility: [facility] [place] [facility] Address: [address] [place] [address] Performed By: #### 1 9123-9, 2777, 01021-2 ####[facility] LABORATORYCLIA [id number] [place] [address] [place] Calcium [Mass/Vol] 8.5 mg/dL Normal 8.5-10.2 [facility] Comment on above: Order Comment: Speci men Type: BLOOD SPECIMENOrdering Facility: [facility] [place] [facility] Address: [address] [place] [address] Performed By: #### 1 9123-9, 2777-, 11334-3 ####[facility] LABORATORYCLIA [id number] [place] [address] [place] Chloride [Moles/Vol] 101 mmol/L Normal 98-107 [facility] Comment on above: Order Comment: Speci men Type: BLOOD SPECIMENOrdering Facility: [facility] [place] [facility] Address: [address] [place] [address] Performed By: #### 1 9123-9, 27705-20, 63645-6 ####[facility] HOSPITALCLIA [id number] [place] [address] [place] CO2 [Moles/Vol] 25 mmol/L Normal 22-30 [facility] Comment on above: Order Comment: Speci men Type: BLOOD SPECIMENOrdering Facility: [facility] [place] [facility] Address: [address] [place] [address] Performed By: #### 1 9123-9, 2777-, 99548-5 ####[facility] [id number] [place] [id number] [place] Creatinine [Mass/Vol] 0.79 mg/dL Normal 0.73-1.22 [facility] Comment on above: Order Comment: Speci men Type: BLOOD SPECIMENOrdering Facility: [facility] [place] [facility] Address: [address] [place] [address] Performed By: #### 1 9123-9, 2777, 99470-9 ####[facility] [id number] [address] [place] eGFRcr SerPlBld CKD-EPI 2020 89 mL/min/1.73m??? Normal >=60 [facility] Comment on above: Order Comment: Speci men Type: BLOOD SPECIMENOrdering Facility: [facility] [place] [facility] Address: [address] [place] [address] Result Comment: Pascale mated Glomerular Filtration Rate (eGFR) is calculated using the 2020 CKD-EPI creatinine equation. This equation utilizes serum creatinine, sex, and age as parameters. The creatinine assay has traceable calibration to isotope dilution-mass spectrometry. Refer to KDIGO guidelines for clinical interpretation. In patients with unstable renal function, e.g. those with acute kidney injury, the eGFR may not accurately reflect actual GFR. Performed By: #### 1 9123-9, 2777-, 41313-6 ####[facility] LABORATORYIA [id number] [place] [address] [place] Glucose [Mass/Vol] 78 mg/dL Normal 74-99 [facility] Comment on above: Order Comment: Speci men Type: BLOOD SPECIMENOrdering Facility: [facility] [place] [facility] Address: [address] [place] [address] Result Comment: The [place] Diabetes Association (ADA) provides guidance for cutoff values for fasting glucose and random glucose. The ADA defines fasting as no caloric intake for at least 8 hours. Fasting plasma glucose results between 100 to 125 mg/dL indicate increased risk for diabetes (prediabetes). Fasting plasma glucose results greater than or equal to 126 mg/dL meet the criteria for diagnosis of diabetes. In the absence of unequivocal hyperglycemia, results should be confirmed by repeat testing. In a patient with classic symptoms of hyperglycemia or hyperglycemic crisis, random plasma glucose results greater than or equal to 200 mg/dL meet the criteria for diagnosis of diabetes. Reference: Standards of Medical Care in Diabetes 2016, [place] Diabetes Association. Diabetes Care. 2016.39(Suppl 1). Performed By: #### 1 9123-9, 2777-, 48110-9 ####[facility] LABORATORYCLIA [id number] [place] [address] [place] Potassium [Moles/Vol] 3.7 mmol/L Normal 3.7-5.1 [facility] Comment on above: Order Comment: Speci men Type: BLOOD SPECIMENOrdering Facility: [facility] [place] [facility] Address: [address] [id number] Performed By: #### 1 9123-9, 2777-, 80933-1 ####[facility]ORATORYCLIA [id number] [place] [address] [place] Sodium [Moles/Vol] 137 mmol/L Normal 136-144 [facility] Comment on above: Order Comment: Speci men Type: BLOOD SPECIMENOrdering Facility: [facility] [place] [facility] Address: [address] [id number] Performed By: #### 1 9123-9, 2777, 74238-1 ####[facility]ATORYCLIA [id number] [place] [address] [place] Urea nitrogen [Mass/Vol] 22 mg/dL Normal 9-24 [facility] Comment on above: Order Comment: Speci men Type: BLOOD SPECIMENOrdering Facility: [facility] [place] [facility] Address: [address] [place] [address] Performed By: #### 1 9123-9, 2777-1, 41055-4 ####[facility]ORATORYCLIA [id number] [address] CBC panel Auto (Bld)on 08-23 Erythrocyte distribution width (RBC) [Ratio] 13.4 % Normal 11.5-15.0 [facility] Comment on above: Order Comment: Speci men Type: BLOOD SPECIMENOrdering Facility: [facility] [place] [facility] Address: [address] [place] [address] Performed By: #### 5 8410-2 ####[facility]ORATORYCLIA [id number] [address] Hematocrit (Bld) [Volume fraction] 40.5 % Normal 39.0-51.0 [facility] Comment on above: Order Comment: Speci men Type: BLOOD SPECIMENOrdering Facility: [facility] [place] [facility] Address: [address] [place] [address] Performed By: #### 5 8410-2 ####[facility]ATORYCLIA [id number] [address] Hemoglobin (Bld) [Mass/Vol] 13.3 g/dL Normal 13.0-17.0 [facility] Comment on above: Order Comment: Speci men Type: BLOOD SPECIMENOrdering Facility: [facility] [place] [facility] Address: [address] [place] [address] Performed By: #### 5 8410-2 ####[facility]ATORYCLIA [id number] [address] MCH (RBC) [Entitic mass] 29.8 pg Normal 26.0-34.0 [facility] Comment on above: Order Comment: Speci men Type: BLOOD SPECIMENOrdering Facility: [facility] [place] [facility] Address: [address] [place] [address] Performed By: #### 5 8410-2 ####[facility]ATORYCLIA [id number] [address] MCHC (RBC) [Mass/Vol] 32.8 g/dL Normal 30.5-36.0 [facility] Comment on above: Order Comment: Speci men Type: BLOOD SPECIMENOrdering Facility: [facility] [place] [facility] Address: [address] [place] [address] Performed By: #### 5 8410-2 ####[facility]ATORYCLIA [id number] [address] [place] MCV (RBC) [Entitic vol] 90.6 fL Normal 80.0-100.[address] [facility] Comment on above: Order Comment: Speci men Type: BLOOD SPECIMENOrdering Facility: [facility] [place] [facility] Address: [address] [place] [address] Performed By: #### 5 8410-2 ####[facility]ATORYCLIA [id number] [address] Nucleated RBC (Bld) [#/Vol] 10*3/uL Normal <0.01 [facility] Comment on above: Order Comment: Speci men Type: BLOOD SPECIMENOrdering Facility: [facility] [place] [facility] Address: [address] [place] [address] Performed By: #### 5 8410-2 ####[facility]ATORYCLIA [id number] [address] [place] Platelet mean volume (Bld) [Entitic vol] 9.9 fL Normal 9.0-12.7 [facility] Comment on above: Order Comment: Speci men Type: BLOOD SPECIMENOrdering Facility: [facility] [place] [facility] Address: [address] [place] [address] Performed By: #### 5 8410-2 ####[facility]ATORYCLIA [id number] [address] [place] Platelets (Bld) [#/Vol] 226 10*3/uL Normal 150-400 [facility] Comment on above: Order Comment: Speci men Type: BLOOD SPECIMENOrdering Facility: [facility] [place] [facility] Address: [address] [place] [address] Performed By: #### 5 8410-2 ####[facility] LABORATORYCLIA [id number] [place] [address] [facility] RBC (Bld) [#/Vol] 4.47 10*6/uL Normal 4.20-6.00 [facility] Comment on above: Order Comment: Speci men Type: BLOOD SPECIMENOrdering Facility: [facility] [place] [facility] Address: [address] [place] [address] Performed By: #### 5 8410-2 ####[facility] LABORATORYCLIA [id number] [place], [place] [id number] [place] [address] WBC (Bld) [#/Vol] 7.97 10*3/uL Normal 3.70-11.00 [facility] Comment on above: Order Comment: Speci men Type: BLOOD SPECIMENOrdering Facility: [facility] [place] [facility] Address: [address] [place] [address] Performed By: #### 5 8410-2 ####[facility] LABORATORYCLIA [id number] [place] [id number] [facility] CONSULT PROGon 08-23-2025 CONSULT PROG HNO ID: [id number] Author: CAN GAYLE APRN.YOUTH CAREER SPECIALIST Service: Neurosurgery Author Type: Nurse Practitioner Type: Consult Progress Note Filed: 08/23/2025 13:25 Note Text: Neurosurgery Progress Note SERVICE DATE: 08/23/2025 SUBJECTIVE: NAEON. Patient denies headache, dizziness, n/v. Endorses poor vision at baseline and attributes to parkinson's. OBJECTIVE: Vitals: Temp (24hrs), Av.7 ?C (98 ?F), Min:36.4 ?C (97.5 ?F), Max:36.9 ?C (98.4 ?F) BP 137/83 Pulse 79 Temp 36.6 ?C (97.9 ?F) (Oral) Resp 18 Ht 177.8 cm (5' 10) Wt 115.2 kg (253 lb 15.5 oz) SpO2 96% BMI 36.44 kg/m? O2 Therapy: Room Air IANDO: Date 08/22/25 07 - 08/23/25 0659 08/23/25 07 - 08/24/25 0659 Shift 7862-6444 7369-4558 6652-2976 24 Hour Total 5201-3309 7787-2579 9623-5771 24 Hour Total INTAKE IV 300 300 Volume (mL) (sodium phosphate 45 mmol in D5W 250 mL) 250 250 Volume (mL) (magnesium sulfate iv piggyback in sterile water 2 g 50 mL) 50 50 Shift Total 300 300 OUTPUT Urine 175 225 400 575 575 Void (ml) 175 200 375 575 575 Amount Voided Before Bladder Scan 25 25 Urine Not Saved. 1 x 1 x Shift Total 175 225 400 575 575 Weight (kg) 117.9 108.8 108.8 108.8 115.2 115.2 115.2 115.2 MEDICATIONS Current Facility-Administered Medications Medication Dose Route Frequency insulin lispro injection (rapid acting) (ADMElog) SUBCUTANEOUS w MEALS AND HS NaCl 0.9% iv flush bag 20 mL INTRAVENOUS PRN tamsulosin 0.4 mg cap(s) (FLOMAX) 0.4 mg ORAL BID pravastatin 80 mg tab(s) (PRAVACHOL) 80 mg ORAL DAILY dextrose 15 gram/32 mL 15 g (TRUEPLUS) 15 g ORAL PRN Or glucagon 1 mg injection 1 mg INTRAMUSCULAR PRN Or dextrose 10% iv bolus 12.5 g INTRAVENOUS PRN carbidopa-levodopa 25-100 mg 2 tablet (SINEMET 25-100) 2 tablet ORAL 3 times per day acetaminophen 1,000 mg tab(s) (TYLENOL) 1,000 mg ORAL q 6 H oxyCODONE IR 2.5-5 mg tab(s) (ROXICODONE) 2.5-5 mg ORAL q 6 H PRN HYDROmorphone 0.2 mg injection (DILAUDID) 0.2 mg INTRAVENOUS q 4 H PRN levETIRAcetam 500 mg tab(s) (KEPPRA) 500 mg ORAL/FEEDING TUBE BID ondansetron 4 mg tab(s) (ZOFRAN) 4 mg ORAL q 6 H PRN Or ondansetron (PF) 4 mg injection (ZOFRAN) 4 mg INTRAVENOUS q 6 H PRN polyethylene glycol 3350 17 g packet 17 g ORAL DAILY potassium chloride 20-40 mEq oral powder (KLOR-CON) 20-40 mEq ORAL/FEEDING TUBE PRN Or potassium chloride iv piggyback 20 mEq/100 mL 20 mEq INTRAVENOUS PRN sodium phosphate 30 mmol in D5W 250 mL 30 mmol INTRAVENOUS PRN(NO DISPENSE) Or sodium phosphate 45 mmol in D5W 250 mL 45 mmol INTRAVENOUS PRN(NO DISPENSE) magnesium sulfate iv piggyback in sterile water 2 g 50 mL 2 g INTRAVENOUS PRN calcium gluconate iv piggyback 2 g in NaCl (iso-osmotic) 100 mL 2 g INTRAVENOUS PRN(NO DISPENSE) Labs: Recent Labs 08/23/25 0415 08/22/25 1143 NA 137 135* K 3.7 3.8 CHLOR 101 99 CO2 25 25 BUN 22 21 CREAT 0.79 0.85 GLUC 78 152* ANION 11 11 CA 8.5 8.9 MG 1.6* -- P 3.4 -- ALB -- 3.9 AST -- 10* ALT -- <5* ALKPHOS -- 88 TBILI -- 0.8 WBC 7.97 8.62 HB 13.3 13.7 HCT 40.5 41.8 PLT 226 249 INR -- 1.1 Exam: GENERAL: Awake and alert; NAD; cooperative; pleasant NEURO: Orientedx3; speech clear and fluent; EVANS; no arm drift STRENGTH: 5/5 throughout HEENT: abrasion to nose and just above left eyebrow; Normocephalic; atraumatic; perrl/eomi; no facial droop LUNGS: Unlabored breathing CARDIAC: Rate and rhythm as above ABDOMEN: Soft, non-tender, non-distended EXTREMITIES: No deformities, No edema SKIN: Skin color normal; Temperature normal; no rashes or lesions ASSESSMENT AND PLAN: Active Hospital Problems Diagnosis Date Noted Subdural hematoma (HCC) 08/22/2025 Obesity, Class I, BMI 30-34.9 08/23/2025 MELISSA (obstructive sleep apnea) 08/23/2025 Fall 08/22/2025 Parkinsonism (HCC) 03/18/2022 Mr. Griffith is a 80 year old male with PMHx significant for Parkinson's on ASA, who presents as a trauma multiple falls, found to have left convexitymSDH with 3-4 mm MLS -neuro as above -CT head stable, reviewed with Dr. Herrera -neuro checks Q4hrs -PT/OT eval and TX -hold ASA until after follow up -Keppra 500mg BID for 14 doses -dispo: ok for RNF from NSGY standpoint -discussed with Dr. Herrera Parts of this note may have been copied from one of my previous notes and remain pertinent. The documentation has been reviewed and edited as necessary to support the clinical decision making for today's visit. SIGNATURE: Can Gayle APRN.CNP PATIENT NAME: Luis Armando Griffith DATE: August 23, 2025 TIME: 09:00 AM Pager: [phone] [facility] CT BRAIN WO IVCONon 08-23-[address] BRAIN WO IVCON * * *Final Report* * * DATE OF EXAM: Aug 23 2025 1:36AM [facility] 0504 - CT BRAIN WO IVCON / PROCEDURE REASON: Subdural hematoma * * * * Physician Interpretation * * * * EXAMINATION: CT BRAIN WO IVCON CLINICAL HISTORY: Follow-up ICH TECHNIQUE: Serial axial images without IV contrast were obtained from the vertex to the foramen magnum. MQ: CTBWO_3 CT Radiation dose: Integrated Dose-Length Product (DLP) for this visit = 784 mGy*cm CT Dose Reduction Employed: Iterative recon COMPARISON: 08/22/2025 RESULT: Acute change: No evidence of an acute infarct or other acute parenchymal process. Hemorrhage: Interval decrease in attenuation with similar thickness left convexity subdural hematoma with more conspicuous hyperdense layering component posteriorly. Mass Lesion / Mass Effect: Similar mass effect subjacent of the hematoma with minimal rightward midline shift. Ventricles: Stable IMPRESSION: Decreased density stable thickness left convexity subdural hematoma and subjacent mass effect. Bicycle Inspector: NOE Transcribe Date/Time: Aug 23 2025 3:24A Dictated by : JA STEPHENS MD This examination was interpreted and the report reviewed and electronically signed by: JA STEPHENS MD on Aug 23 2025 3:32AM EST [id number] Normal [facility] Calcium.ionized [Moles/Vol]o n 08-23-2025 Calcium.ionized (BldV) [Mass/Vol] 1.10 mmol/L Normal 1.08-1.30 [facility] Comment on above: Order Comment: Speci men Type: BLOOD SPECIMENOrdering Facility: [facility] [place] [facility] Address: [address] [place] [address] Performed By: #### 1 995-0 ####[facility] LABORATORYCLIA [id number] [address] OF [facility] Calcium.ionized adjusted to pH 7.4 (Bld) [Moles/Vol] 1.08 mmol/L Normal 1.08-1.30 [facility] Comment on above: Order Comment: Speci men Type: BLOOD SPECIMENOrdering Facility: [facility] [place] [facility] Address: [address] [place] [address] Performed By: #### 1 995-0 ####[facility] LABORATORYIA [id number] [place] [id number] [place] [facility] Magnesium [Mass/Vol] 1.6 mg/dL Low 1.7-2.3 [facility] Comment on above: Order Comment: Speci men Type: BLOOD SPECIMENOrdering Facility: [facility] [place] [facility] Address: [address] [place] [address] Performed By: #### 1 9123-9, 2777-1, 34467-4 ####[facility] [id number] [place] [address] [place] NURSING PROGon 08-23-2025 NURSING PROG HNO ID: [id number] Author: ALONDRA DOMINGUEZ RN Service: Nursing Author Type: Registered Nurse Type: Nursing Progress Note Filed: 08/23/2025 13:02 Note Text: Transfer Note: PATIENT NAME: Luis Armando Griffith Patient Location: [place] [address] [address] Room: [place] [address] Patient transferred into room/unit [facility] [facility] [place] in [place] condition. Actions taken: Report given/called to Fernando, all questions answered. Patient belongings with patient. , Brennen, alerted of transfer. Normal [facility] Phosphate SerPl-mCncon 08-23 Phosphate [Mass/Vol] 3.4 mg/dL Normal 2.7-4.8 [facility] Comment on above: Order Comment: Speci men Type: BLOOD SPECIMENOrdering Facility: [facility] [place] [facility] Address: [facility] [place] [address] Performed By: #### 1 9123-9, 2777-1, 01628-5 ####[facility] LABORATORYCLIA [id number] [place] [address] [place] THERAPY NTon 08-23-2025 THERAPY NT HNO ID: [id number] Author: LISBETH MAY, PT Service: Physical Therapy Author Type: Physical Therapist Type: Therapy (PT/OT/Speech/Resp) Filed: 08/23/2025 15:49 Note Text: Physical Therapy Evaluation Summary SERVICE DATE: 08/23/2025 SERVICE TIME: 1455 to 1515 ROOM: [place] [address] PT 6 Clicks Score: 16 DISCHARGE RECOMMENDATIONS Acute Rehab Recommended Discharge Disposition Comments: Patient not at functional baseline, recommending acute rehab at discharge to progress toward PLOF. Recommended Discharge Disposition Due to: Functional deficits requiring ongoing therapy service prior to discharge home., Patient requires daily (5x/week) skilled therapy at next level of care., Patient requires active, intensive rehabilitation by multiple therapy disciplines. Anticipate the patient will tolerate 3 hours of therapy per day., Balance deficits, Functional status decline, Requires multiple therapy disciplines ASSESSMENT Response to Therapy Interventions: Good Participation in Activities PRECAUTIONS Fall Risk, Bed/Chair Alarm CURRENT HOSPITAL COURSE Patient presents as a transfer from [place] due to fall and sustaining L SDH. Patient required ICU level care due to initial increase in size, but now on RNF Relevant Past Medical History: Parkinsons, COPD, poor vision HOME LIVING Patient Lives With: Facility Care Assistance Available: Part-Time Entry To Home: No Stairs Number Of Stairs To Bed/Bath: 0 Tub/Shower Type: walk in shower Equipment Owned: Wheelchair- Manual, Walker- Wheeled PRIOR FUNCTIONAL LEVEL Within Functional Limits Patient reports that he is independent with ability to get in wheelchair and ambulate short distances. States that he is independent with ADLs, provides transportation due to poor vision/ SUBJECTIVE Agreeable to PT session THERAPY DIAGNOSIS Reduced mobility-other TREATMENT INTERVENTIONS Evaluation $ Evaluation-Moderate (65089) Billed Units: 1 unit Skilled Treatment Time (minutes): 20 TRAINING AND EDUCATION PROVIDED Bed Mobility, Assistive Device Use, Benefits of In-Hospital Mobility, Discharge Planning, Disease Specific Education, Expected Functional Level, Gait Pattern, Reduction of Deviations, Precautions/Restriction s, Pre-gait Activities, Role of Physical Therapy, Sitting Balance, Standing Balance, Transfers THERAPEUTIC SKILLS USED Cues for Sequencing/Proper Technique for Activity, Cuing Tactile, Cuing Verbal, Cuing Visual, Movement Facilitation, Muscle Activation Facilitation, Physical Assist, Postural Alignment Correction FUNCTIONAL STATUS Bed Mobility Supine To Sit: Minimal Assistance, Additional Information Light handheld assist provided to get trunk to upright sitting position. Transfers Sit To Stand: Minimal Assistance, Additional Information Cues to push up from the bed to get to standing position.Cues to place hands on the walker for support. Stand To Sit: Minimal Assistance, Additional Information Cues to make sure legs are touching the chair and to reach back and sit slowly Bed to Chair Minimal Assistance, Additional Information Bed To Chair Transfer Type: Stepping Bed To Chair Transfer Equipment: Wheeled Walker Cues to use walker for support and to take steps toward the chair. Gait Moderate Assistance, Minimal Assistance, Additional Information Patient required mostly Malcolm for ambulation, Required increased verbal cueing due to poor vision and room set up When in the hallway, patient had loss of balance to the L side. PT provided modA to correct balance. INstructed patient to return back to room Gait Device: Wheeled Walker General Deviations/Observations : Loly decreased, Loss of Balance Gait Distance (feet): 2x20ft Stairs RANGE OF MOTION WFL STRENGTH WFL BALANCE Static Sitting Balance: Good Dynamic Sitting Balance: Good Static Standing Balance: Fair Dynamic Standing Balance: Poor GOALS Able to Perform HEP with: Independent Rolling with: Independent Transfer Supine to/from Sit with: Independent Transfer Sit to/from Stand with: Independent Ambulate with: Modified Independent Distance: 45ft Device: Wheeled Walker Transfer: complete bed to chair transfer with Markie Rehab Potential: Good Good Rehab Potential Due To: Current objective clinical presentation ACUTE CARE TREATMENT PLAN PT Frequency: 4 Times Per Week (2-4) Treatment Interventions: Education, Balance Training, Neuromuscular Re-education, Strengthening, Functional Mobility Training SIGNATURE: Lisbeth May PT PATIENT NAME: Luis Armando Griffith DATE: August 23, 2025 TIME: 3:[address] [facility] Absolute lymphocyte countOrd ered By: Tex Whitney on 08-22-2025 Lymphocytes Auto (Unsp spec) [#/Vol] 2.72 10*3/uL 0.83-4.51 [facility] Activated partial thrombopla stin time (aPTT) in platelet poor plasma by coagulation aOrdered By: Tex Whitney on 08-22-2025 aPTT Coag (PPP) [Time] 27.2 s 24.1-36.2 [facility] Anion gap in Serum or Plasma Ordered By: Tex Whitney on 08-22-2025 Anion gap [Moles/Vol] 11 mmol/L 5-15 [facility] Automated lymphocyte count a s percentage of total leukocytesOrdered By: Tex Whitney on 08-22-2025 Lymphocytes/100 WBC Auto (Unsp spec) 32.1 % 19-41 [facility] BUN/creatinine ratioOrdered By: Tex Devonte on 08-22-2025 Urea nitrogen/Creatinine [Mass ratio] 25.2 mg/mg High 10-20 [facility] Basophil percentageOrdered B y: Tex Whitney on 08-22-2025 Basophils/100 WBC (Bld) 0.8 % 0-1 [facility] Bedside Glucoseon 08-22-2025 FINGERSTICK GLU 148 mg/dL High 74-106 [facility] Comment on above: Result Comment: GARY GEMENT OF PATIENT CARE PER NURSING PROTOCOL Performed By: #### L 501.080 ####[facility] [id number] [place], [address] Bilirubin, totalOrdered By: Tex Whitney on 08-22-2025 Bilirubin [Mass/Vol] 0.77 mg/dL 0.00-1.30 [facility] Brain/Head without Contrasto n 08-22-2025 Brain/Head without Contrast Normal [facility] CBC W Auto Differential pane l (Bld)on 08-22-2025 Basophils (Bld) [#/Vol] 0.06 10*3/uL Normal <0.11 [facility] Comment on above: Order Comment: Speci men Type: BLOOD SPECIMENOrdering Facility: [facility] [place] [facility] Address: [address] [place] [address] Performed By: #### 5 7021-8 ####[facility]ORATORYCLIA [id number] [address] Basophils/100 WBC (Bld) 0.7 % Normal A [facility] Comment on above: Order Comment: Speci men Type: BLOOD SPECIMENOrdering Facility: [facility] [place] [facility] Address: [address] [place] [address] Performed By: #### 5 7021-8 ####[facility] LABORATORYCLIA [id number] [address] Differential cell count method Nom (Bld) Auto Normal [facility] Comment on above: Order Comment: Speci men Type: BLOOD SPECIMENOrdering Facility: [facility] [place] [facility] Address: [address] [place] [address] Performed By: #### 5 7021-8 ####[facility]ORATORYCLIA [id number] [address] STATES OF [facility] Eosinophils (Bld) [#/Vol] 0.15 10*3/uL Normal <0.46 [facility] Comment on above: Order Comment: Speci men Type: BLOOD SPECIMENOrdering Facility: [facility] [place] [facility] Address: [address] [place] [address] Performed By: #### 5 7021-8 ####[facility]ORATORYCLIA [id number] [address] Eosinophils/100 WBC (Bld) 1.7 % Normal [facility] Comment on above: Order Comment: Speci men Type: BLOOD SPECIMENOrdering Facility: [facility] [place] [facility] Address: [address] [place] [address] Performed By: #### 5 7021-8 ####[facility]ORATORYCLIA [id number] [address] [place] Erythrocyte distribution width (RBC) [Ratio] 13.2 % Normal 11.5-15.0 [facility] Comment on above: Order Comment: Speci men Type: BLOOD SPECIMENOrdering Facility: [facility] [place] [facility] Address: [address] [place] [address] Performed By: #### 5 7021-8 ####[facility] LABORATORYCLIA [id number] [address] [place] Hematocrit (Bld) [Volume fraction] 41.8 % Normal 39.0-51.0 [facility] Comment on above: Order Comment: Speci men Type: BLOOD SPECIMENOrdering Facility: [facility] [place] [facility] Address: [address] [place] [address] Performed By: #### 5 7021-8 ####[facility] LABORATORYCLIA [id number] [address] [place] Hemoglobin (Bld) [Mass/Vol] 13.7 g/dL Normal 13.0-17.0 [facility] Comment on above: Order Comment: Speci men Type: BLOOD SPECIMENOrdering Facility: [facility] [place] [facility] Address: [address] [place] [address] Performed By: #### 5 7021-8 ####[facility] LABORATORYCLIA [id number] [address] [place] Immature granulocytes (Bld) [#/Vol] 0.03 10*3/uL Normal <0.10 [facility] Comment on above: Order Comment: Speci men Type: BLOOD SPECIMENOrdering Facility: [facility] [place] [facility] Address: [address] [place] [address] Performed By: #### 5 7021-8 ####[facility] LABORATORYCLIA [id number] [address] [place] Immature granulocytes/100 WBC (Bld) 0.3 % Normal [facility] Comment on above: Order Comment: Speci men Type: BLOOD SPECIMENOrdering Facility: [facility] [place] [facility] Address: [address] [place] [address] Performed By: #### 5 7021-8 ####[facility] LABORATORYCLIA [id number] [place] [address] [place] Lymphocytes (Bld) [#/Vol] 3.00 10*3/uL Normal 1.00-4.[address] [facility] Comment on above: Order Comment: Speci men Type: BLOOD SPECIMENOrdering Facility: [facility] [place] [facility] Address: [address] [place] [address] Performed By: #### 5 7021-8 ####[facility] LABORATORYCLIA [id number] [address] Lymphocytes/100 WBC (Bld) 34.8 % Normal [facility] Comment on above: Order Comment: Speci men Type: BLOOD SPECIMENOrdering Facility: [facility] [place] [facility] Address: [address] [place] [address] Performed By: #### 5 7021-8 ####[facility] LABORATORYCLIA [id number] [address] MCH (RBC) [Entitic mass] 29.7 pg Normal 26.0-34.0 [facility] Comment on above: Order Comment: Speci men Type: BLOOD SPECIMENOrdering Facility: [facility] [place] [facility] Address: [address] [place] [address] Performed By: #### 5 7021-8 ####[facility] LABORATORYCLIA [id number] [address] MCHC (RBC) [Mass/Vol] 32.8 g/dL Normal 30.5-36.0 [facility] Comment on above: Order Comment: Speci men Type: BLOOD SPECIMENOrdering Facility: [facility] [place] [facility] Address: [address] [place] [address] Performed By: #### 5 7021-8 ####[facility] LABORATORYCLIA [id number] [address] MCV (RBC) [Entitic vol] 90.7 fL Normal 80.0-100.[address] [facility] Comment on above: Order Comment: Speci men Type: BLOOD SPECIMENOrdering Facility: [facility] [place] [facility] Address: [address] [place] [address] Performed By: #### 5 7021-8 ####[facility]ORATORYCLIA [id number] [place] [address] [place] Monocytes (Bld) [#/Vol] 0.90 10*3/uL High <0.87 [facility] Comment on above: Order Comment: Speci men Type: BLOOD SPECIMENOrdering Facility: [facility] [place] [facility] Address: [address] [place] [address] Performed By: #### 5 7021-8 ####[facility]ORATORYCLIA [id number] [address] [place] Monocytes/100 WBC (Bld) 10.4 % Normal [facility] Comment on above: Order Comment: Speci men Type: BLOOD SPECIMENOrdering Facility: [facility] [place] [facility] Address: [address] [place] [address] Performed By: #### 5 7021-8 ####[facility] LABORATORYCLIA [id number] [address] [place] Neutrophils (Bld) [#/Vol] 4.48 10*3/uL Normal 1.45-7.[address] [facility] Comment on above: Order Comment: Speci men Type: BLOOD SPECIMENOrdering Facility: [facility] [place] [facility] Address: [address] [place] [address] Performed By: #### 5 7021-8 ####[facility]ATORYCLIA [id number] [address] [place] Neutrophils/100 WBC (Bld) 52.1 % Normal [facility] Comment on above: Order Comment: Speci men Type: BLOOD SPECIMENOrdering Facility: [facility] [place] [facility] Address: [address] [place] [address] Performed By: #### 5 7021-8 ####[facility]ORATORYCLIA [id number] [place] [address] [place] Nucleated RBC (Bld) [#/Vol] 10*3/uL Normal <0.01 [facility] Comment on above: Order Comment: Speci men Type: BLOOD SPECIMENOrdering Facility: [facility] [place] [facility] Address: [address] [place] [address] Performed By: #### 5 7021-8 ####[facility] LABORATORYCLIA [id number] [address] [place] Nucleated RBC/100 WBC (Bld) [Ratio] 0.0 /[address] [facility] Comment on above: Order Comment: Speci men Type: BLOOD SPECIMENOrdering Facility: [facility] [place] [facility] Address: [address] [place] [address] Performed By: #### 5 7021-8 ####[facility] LABORATORYCLIA [id number] [place] [address] [place] Platelet mean volume (Bld) [Entitic vol] 10.4 fL Normal 9.0-12.7 [facility] Comment on above: Order Comment: Speci men Type: BLOOD SPECIMENOrdering Facility: [facility] [place] [facility] Address: [address] [place] [address] Performed By: #### 5 7021-8 ####[facility] LABORATORYCLIA [id number] [address] [place] Platelets (Bld) [#/Vol] 249 10*3/uL Normal 150-400 [facility] Comment on above: Order Comment: Speci men Type: BLOOD SPECIMENOrdering Facility: [facility] [place] [facility] Address: [address] [place] [address] Performed By: #### 5 7021-8 ####[facility] LABORATORYCLIA [id number] [place] [address] [place] RBC (Bld) [#/Vol] 4.61 10*6/uL Normal 4.20-6.00 [facility] Comment on above: Order Comment: Speci men Type: BLOOD SPECIMENOrdering Facility: [facility] [place] [facility] Address: [address] [place] [address] Performed By: #### 5 7021-8 ####[facility] LABORATORYCLIA [id number] [place] [address] [place] WBC (Bld) [#/Vol] 8.62 10*3/uL Normal 3.70-11.00 [facility] Comment on above: Order Comment: Speci men Type: BLOOD SPECIMENOrdering Facility: [facility] [place] [facility] Address: [address] [place] [address] Performed By: #### 5 7021-8 ####[facility] LABORATORYCLIA [id number] [place] [address] [place] CBC W/Diff, Automatedon 10-0 3-2024 Absolute Lymph 2.72 X10 3/uL Normal 0.83-4.51 [facility] Comment on above: Performed By: #### L 500.4050, L100.0100, L300.3900, L300.4310 ####[facility] [address] [place], [address] Absolute Neut 4.5 X10 3/uL Normal 2.0-7.7 [facility] Comment on above: Performed By: #### L 500.4050, L100.0100, L300.3900, L300.4310 ####[facility] [address] [place], [address] Basophils/100 WBC (Bld) 0.8 % Normal 0-1 [facility] Comment on above: Performed By: #### L 500.4050, L100.0100, L300.3900, L300.4310 ####[facility] [address] [place], [address] Eosinophils/100 WBC (Bld) 2.1 % Normal 0-5 [facility] Comment on above: Performed By: #### L 500.4050, L100.0100, L300.3900, L300.4310 ####[facility] [address] [place], [address] Erythrocyte distribution width (RBC) [Ratio] 13.2 % Normal 11.6-14.6 [facility] Comment on above: Performed By: #### L 500.4050, L100.0100, L300.3900, L300.4310 ####[facility] [address] [place], [address] Hematocrit (Bld) [Volume fraction] 42.0 % Normal 40-54 [facility] Comment on above: Performed By: #### L 500.4050, L100.0100, L300.3900, L300.4310 ####[facility] [address] [place], [address] Hemoglobin (Bld) [Mass/Vol] 14.0 g/dL Normal 13.0-16.5 [facility] Comment on above: Performed By: #### L 500.4050, L100.0100, L300.3900, L300.4310 ####[facility] [address] [place], [address] IG% 0.600 Normal 0.0-0.9 [facility] Comment on above: Result Comment: IG% - Immature Granulocytes (promyelocytes, myelocytes andmetamyelocytes) > 1% indicates that a LEFT SHIFT is Present. Performed By: #### L 500.4050, L100.0100, L300.3900, L300.4310 ####[facility] [address] [place], [address] Lymphocytes/100 WBC (Bld) 32.1 % Normal 19-41 [facility] Comment on above: Performed By: #### L 500.4050, L100.0100, L300.3900, L300.4310 ####[facility] [address] [place], [address] MCH (RBC) [Entitic mass] 29.8 pg Normal 27.0-32.0 [facility] Comment on above: Performed By: #### L 500.4050, L100.0100, L300.3900, L300.4310 ####[facility] [address] [place], [address] MCHC (RBC) [Mass/Vol] 33.3 g/dL Normal 32-36 [facility] Comment on above: Performed By: #### L 500.4050, L100.0100, L300.3900, L300.4310 ####[facility] [address] [place], [address] MCV (RBC) [Entitic vol] 89.4 fL Normal 80-94 [facility] Comment on above: Performed By: #### L 500.4050, L100.0100, L300.3900, L300.4310 ####[facility] [address] [place], [address] Monocytes/100 WBC (Bld) 11.7 % High 0-10 [facility] Comment on above: Performed By: #### L 500.4050, L100.0100, L300.3900, L300.4310 ####[facility] [address] [place], [address] Neutrophils/100 WBC (Bld) 52.7 % Normal 47-70 [facility] Comment on above: Performed By: #### L 500.4050, L100.0100, L300.3900, L300.4310 ####[facility] [address] [place], [address] Nucleated RBC (Bld) [#/Vol] 0 10*3/uL Normal 0-5 [facility] Comment on above: Performed By: #### L 500.4050, L100.0100, L300.3900, L300.4310 ####[facility] [address] [place], [address] Platelet mean volume (Bld) [Entitic vol] 10.0 fL Normal 6.2-12.0 [facility] Comment on above: Performed By: #### L 500.4050, L100.0100, L300.3900, L300.4310 ####[facility] [address] [place], [address] Platelets (Bld) [#/Vol] 254 10*3/uL Normal 150-450 [facility] Comment on above: Performed By: #### L 500.4050, L100.0100, L300.3900, L300.4310 ####[facility] [address] [place], [address] RBC (Bld) [#/Vol] 4.70 10*6/uL Normal 4.6-6.2 [facility] Comment on above: Performed By: #### L 500.4050, L100.0100, L300.3900, L300.4310 ####[facility] [address] [place], [address] RDW SD 43.7 fl Normal 35.1-43.9 [facility] Comment on above: Performed By: #### L 500.4050, L100.0100, L300.3900, L300.4310 ####[facility] [address] [place], [address] WBC (Bld) [#/Vol] 8.5 10*3/uL Normal 4.4-11.0 [facility] Comment on above: Performed By: #### L 500.4050, L100.0100, L300.3900, L300.4310 ####[facility] [address] [place], [address] CONSULTon 08-22-2025 CONSULT HNO ID: [id number] Author: LIUDMILA GARCIA MD Service: General Surgery Author Type: Resident Type: Consults Filed: 08/23/2025 20:28 Note Text: Attestation signed by Liudmila Garcia MD at 08/23/2025 8:28 PM (Updated) I was not able to personally see this patient. I personally reviewed the HANDP as well as any pertinent labs and imaging. The HPI and exam was discussed with the resident. I agree with the presented documentation and noted plan unless specifically noted. Time spent 45 minutes SIGNATURE: Liudmila Garcia MD PATIENT NAME: Luis Armando Griffith DATE: August 23, 2025 TIME: 8:28 PM Pager: [phone] Surgical Intensive Care Unit Consult Note SERVICE DATE: 08/22/2025 SERVICE TIME: 11:02 PM REASON FOR CONSULT: ICU management REQUESTING PHYSICIAN: Dr. Cook Subjective 80 year old male paroxysmal A-fib on aspirin (no reportable additional anticoagulants), and Parkinson's disease, COPD, MELISSA, spinal fusion L4/L3 is consulted to trauma after mechanical GLF x2 10/2 PM. Pt reports 10/2 PM he was walking and slipped on his sock, and that later he fell getting out of his wheelchair. Reports he hit his head both times, and neither time did he lost consciousness. Denies any lightheadedness or syncope prior to falling. Pt was seen at [facility] ED this AM and was given a CT face, head, c-spine. On head CT the pt was found to have a SDH on the left with chronic and acute characteristics with a 5.[address] face and c-spine negative for acute fractures and showed chronic fx of the L posterolateral orbit wall. . Pt was sent to [facility] for further evaluation. At [facility] the pt was reversed for ASA with desmopressin in the ED (states he took ASA this AM). GCS at [facility] and at ED here 15. He denies taking any blood thinners, just takes ASA. States he does not use etoh, is a former smoker and quit 40 years ago, and does not use illicit drugs. Originally the patient was admitted to the regular nursing floor but on repeat imaging found to have worsening head bleed. He was subsequently transferred to the ICU. He denies any pain, nausea, weakness. He does not report any motor deficits. Code discussions had with the patient and at this time he would like to be full code. FUNCTIONAL STATUS: Independent PAST MEDICAL HISTORY Diagnosis Date Chronic obstructive pulmonary disease (COPD) ([facility]) Diabetes ([facility]) Gait instability 03/18/2022 Generalized anxiety disorder H/O seasonal allergies Imbalance 08/11/2022 Leg weakness, bilateral 08/11/2022 Mixed hyperlipidemia Sleep apnea PAST SURGICAL HISTORY Procedure Laterality Date ADDITIONAL SPINAL FUSION 2000 L4, L3 ELBOW SURGERY HX 1994 Left EXTENSIVE FOREARM SURGERY Left 07/04/2018 Overgrown bone had shortened and plate placed- Per Patient LAPAR LUMBAR FUSION ADDITIONAL 2019 S LEAD SPINAL CORD STIMULATOR 05/19/2021 TOTAL KNEE REPLACEMENT Left 08/14/2006 TOTAL KNEE REPLACEMENT Right 07/30/2012 FAMILY HISTORY Problem Relation Age of Onset Leukemia Father Coronary Artery Disease Mother Tremor Mother Thyroid Sister COPD Sister Tremor Sister Thyroid Sister DVT Sister Tremor Sister Thyroid Sister Thyroid Sister Diabetes Maternal Grandfather Hypertension No Family History Hyperlipidemia No Family History Blood Clots No Family History Factor 5 Leiden No Family History Stroke No Family History Systemic Lupus Erythematosus No Family History Multiple Sclerosis No Family History Bipolar disorder No Family History Schizophrenia No Family History Dementia No Family History Alzheimer's Disease No Family History Parkinson?s Disease No Family History Aneurysm No Family History SOCIAL HISTORY[1] Prescriptions Prior to Admission[2] Current Facility-Administered Medications Medication Dose Route Frequency NaCl 0.9% iv flush bag 20 mL INTRAVENOUS PRN tamsulosin 0.4 mg cap(s) (FLOMAX) 0.4 mg ORAL BID pravastatin 80 mg tab(s) (PRAVACHOL) 80 mg ORAL DAILY dextrose 15 gram/32 mL 15 g (TRUEPLUS) 15 g ORAL PRN Or glucagon 1 mg injection 1 mg INTRAMUSCULAR PRN Or dextrose 10% iv bolus 12.5 g INTRAVENOUS PRN insulin lispro injection (rapid acting) (ADMElog) SUBCUTANEOUS q 6 H carbidopa-levodopa 25-100 mg 2 tablet (SINEMET 25-100) 2 tablet ORAL 3 times per day NaCl 0.9% iv infusion 150 mL/hr INTRAVENOUS CONTINUOUS acetaminophen 1,000 mg tab(s) (TYLENOL) 1,000 mg ORAL q 6 H oxyCODONE IR 2.5-5 mg tab(s) (ROXICODONE) 2.5-5 mg ORAL q 6 H PRN HYDROmorphone 0.2 mg injection (DILAUDID) 0.2 mg INTRAVENOUS q 4 H PRN levETIRAcetam 500 mg tab(s) (KEPPRA) 500 mg ORAL/FEEDING TUBE BID iv contrast (radiology procedure) INTRAVENOUS DIRECTED PRN iv contrast (radiology procedure) INTRAVENOUS DIRECTED PRN (more content not included)... Normal [facility] CONSULT HNO ID: [id number] Author: TRESA COOK MD Service: General Surgery Author Type: Physician Type: Consults Filed: 08/22/2025 21:29 Note Text: TRAUMA SURGERY CONSULT [facility] ARRIVAL DATE: August 22, 2025 ARRIVAL TIME: 10:50 AM INJURY DATE: August 21, 2025 INJURY TIME: 9PM Subjective 80 year old male paroxysmal A-fib on aspirin (no reportable additional anticoagulants), and Parkinson's disease, COPD, MELISSA, spinal fusion L4/L3 is consulted to trauma after mechanical GLF x2 10/2 PM. Pt reports 10/2 PM he was walking and slipped on his sock, and that later he fell getting out of his wheelchair. Reports he hit his head both times, and neither time did he lost consciousness. Denies any lightheadedness or syncope prior to falling. Pt was seen at [facility] ED this AM and was given a CT face, head, c-spine. On head CT the pt was found to have a SDH on the left with chronic and acute characteristics with a 5.[address] face and c-spine negative for acute fractures and showed chronic fx of the L posterolateral orbit wall. . Pt was sent to [facility] [place] [facility] for further evaluation. At [facility] the pt was reversed for ASA with desmopressin in the ED (states he took ASA this AM). GCS at [facility] and at ED here 15. He denies taking any blood thinners, just takes ASA. States he does not use etoh, is a former smoker and quit 40 years ago, and does not use illicit drugs. HPI/CHIEF COMPLAINT: GLF x2 BRIEF DESCRIPTION OF INJURIES: SDH on the left with chronic and acute characteristics with a 5.8 mm midline shift LAST FLUIDS/MEAL: 08/21 CODE STATUS: Not discussed ALLERGIES Allergen Reactions Reglan [Metoclopram* Mental Status Change psychosis Prescriptions Prior to Admission[1] DATE OF LAST TETANUS: unknown Immunization History Administered Date(s) Administered COVID-19 original vaccine, age 12+ yr, monovalent (PFIZER-BIONTTime Warden - GOSS TOP) 02/16/2022 COVID-19 original vaccine, age 12+ yr, monovalent (PFIZER-BIONTECH - PURPLE TOP) 12/30/2020 01/19/2021 08/15/2021 COVID-19 vaccine (NOVAVAX) 09/16/2024 COVID-19 vaccine, age 12+ yr, bivalent (PFIZER-BIONTECH) 08/23/2022 PAST MEDICAL HISTORY Diagnosis Date Chronic obstructive pulmonary disease (COPD) ([facility]) Diabetes ([facility]) Gait instability 03/18/2022 Generalized anxiety disorder H/O seasonal allergies Imbalance 08/11/2022 Leg weakness, bilateral 08/11/2022 Mixed hyperlipidemia Sleep apnea PAST SURGICAL HISTORY Procedure Laterality Date ADDITIONAL SPINAL FUSION 2000 L4, L3 ELBOW SURGERY HX 1994 Left EXTENSIVE FOREARM SURGERY Left 07/04/2018 Overgrown bone had shortened and plate placed- Per Patient LAPAR LUMBAR FUSION ADDITIONAL 2019 S LEAD SPINAL CORD STIMULATOR 05/19/2021 TOTAL KNEE REPLACEMENT Left 08/14/2006 TOTAL KNEE REPLACEMENT Right 07/30/2012 SOCIAL HISTORY[2] FAMILY HISTORY Problem Relation Age of Onset Leukemia Father Coronary Artery Disease Mother Tremor Mother Thyroid Sister COPD Sister Tremor Sister Thyroid Sister DVT Sister Tremor Sister Thyroid Sister Thyroid Sister Diabetes Maternal Grandfather Hypertension No Family History Hyperlipidemia No Family History Blood Clots No Family History Factor 5 Leiden No Family History Stroke No Family History Systemic Lupus Erythematosus No Family History Multiple Sclerosis No Family History Bipolar disorder No Family History Schizophrenia No Family History Dementia No Family History Alzheimer's Disease No Family History Parkinson?s Disease No Family History Aneurysm No Family History ROS: Is the patient having any pain? Mild headache Constitutional: Negative Eye/Ear/Nose: Negative Respiratory: Negative Cardiovascular: Negative GI/Liver/Biliary: Negative Genitourinary: Negative Psychiatric: Negative Neurologic: Negative Musculoskeletal: Negative Integument: Negative Endocrine: Negative Heme/Lymph: Negative Objective PRIMARY SURVEY AIRWAY: Patent BREATHING: Breath sounds equal CIRCULATION: PT/DP intact, Radials intact, Femoral intact DISABILITY: Eye: 4=Spontaneous Verbal: 5=Oriented and Converses Motor: 6=Obeys Commands Total GCS: 15=4 Resp Rate: 10 to 29=4 Syst BP: > than 89=4 REVISED TRAUMA SCORE: 12 EXPOSE / ENVIRONMENT: Warm Blankets PROCEDURES: None, desmopresson given in eD SECONDARY SURVEY VITALS: 08/22/25 1045 08/22/25 1200 08/22/25 1330 08/22/25 1400 BP: 144/69 114/56 128/82 Pulse: 83 83 (!) 99 (!) 102 Resp: 18 20 20 19 Temp: TempSrc: SpO2: 95% 96% (!) 94% 95% Weight: Height: NEURO: Alert AND Oriented x 3, GCS 15, Cranial Nerves II-XII grossly Intact, Moves All Extremities, Strength Symmetrical, No Sensory Deficits. HEENT: Head: small abrasion to the nose and right eyebrow, no bony step-offs, midface stable to palpation. Eyes: PERRL, conjunctiva/corneas without lesions, EOMI. Ears: Canals without blood or CSF drainage, TMs clear, external ears (more content not included)... Normal [facility] CONSULT HNO ID: [id number] Author: GALLO HERRERA MD Service: Neurosurgery Author Type: Physician Intake Specialist Type: Consults Filed: 08/22/2025 16:11 Note Text: Attestation signed by Gallo Herrera MD at 08/22/2025 4:11 PM Attending Note I reviewed pertinent patient history and examination performed by PA/METROLOGY TECHNICIAN, relevant laboratory results and imaging studies. Unless indicated below I agree with the plan of care discussed. 80[address] brain - chronic Lt SDH, small amount of possible acute tentorial and falcine aSDH - f/up CT brain to re-assess - consider MMA embo Gallo Garciaivosheya, MD CONSULT: NEUROSURGERY SERVICE SERVICE DATE: 08/22/2025 SERVICE TIME: 1147 REASON FOR CONSULT: Trauma, GLF REQUESTING PHYSICIAN: Dr. Davis PRIMARY CARE PHYSICIAN: aJ Cooley MD, MD Consultation requested by Dr. Davis for an opinion regarding GLF, mSDH. My final recommendations will be communicated back to the requesting physician by way of shared Medical record or letter to requesting physician via US mail. Trauma Level: Transfer Mechanism: Fall HISTORY OF PRESENT ILLNESS: Subjective Mr. Griffith is a 80 year old male with PMHx significant for parkinson's disease, COPD, MELISSA, HLD, diabetes, who presents for fall. Found to have mixed density left convexity SDH Transfer from [facility]. Denies headache, nausea, emesis, numbness, tingling, weakness. at bedside reports that he falls constantly. Grand daughter at bedside is NSICU nurse at OSH. Antiplatelet/Anticoagul ants: Yes, ASA Past Medical History: PAST MEDICAL HISTORY Diagnosis Date Chronic obstructive pulmonary disease (COPD) ([facility]) Diabetes ([facility]) Gait instability 03/18/2022 Generalized anxiety disorder H/O seasonal allergies Imbalance 08/11/2022 Leg weakness, bilateral 08/11/2022 Mixed hyperlipidemia Sleep apnea Past Surgical History: PAST SURGICAL HISTORY Procedure Laterality Date ADDITIONAL SPINAL FUSION 2000 L4, L3 ELBOW SURGERY HX 1994 Left EXTENSIVE FOREARM SURGERY Left 07/04/2018 Overgrown bone had shortened and plate placed- Per Patient LAPAR LUMBAR FUSION ADDITIONAL 2019 S LEAD SPINAL CORD STIMULATOR 05/19/2021 TOTAL KNEE REPLACEMENT Left 08/14/2006 TOTAL KNEE REPLACEMENT Right 07/30/2012 Family History: FAMILY HISTORY Problem Relation Age of Onset Leukemia Father Coronary Artery Disease Mother Tremor Mother Thyroid Sister COPD Sister Tremor Sister Thyroid Sister DVT Sister Tremor Sister Thyroid Sister Thyroid Sister Diabetes Maternal Grandfather Hypertension No Family History Hyperlipidemia No Family History Blood Clots No Family History Factor 5 Leiden No Family History Stroke No Family History Systemic Lupus Erythematosus No Family History Multiple Sclerosis No Family History Bipolar disorder No Family History Schizophrenia No Family History Dementia No Family History Alzheimer's Disease No Family History Parkinson?s Disease No Family History Aneurysm No Family History Social History: SOCIAL HISTORY[1] COMPLETE REVIEW OF SYSTEMS: Constitutional: Denies fatigue, fever/chills Eyes: Denies vision changes, diplopia, pain Ears: Denies hearing changes, tinnitus, vertigo Cardiovascular: Denies chest pain, palpitations Respiratory: Denies cough, wheezing, dyspnea GI: Denies dysphagia, gastric reflux, nausea, vomiting, change in bowel or bladder habits : Denies incontinence, urinary infections Musculoskeletal: Denies joint pain, muscle pain, limitation of movement, stiffness, weakness Integumentary: Denies rashes, color changes in skin or nails Neurological: See HPI Endocrine: Denies heat/cold intolerance Heme/Lymph: Denies easy bruising or bleeding, history of blood transfusions and reactions Allergy/Immune: Denies fatigue, fever/chills Objective MEDS: Prescriptions Prior to Admission[2] Current Facility-Administered Medications Medication Dose Route Frequency NaCl 0.9% iv flush bag 20 mL INTRAVENOUS PRN iv contrast (radiology procedure) INTRAVENOUS DIRECTED PRN iv contrast (radiology procedure) INTRAVENOUS DIRECTED PRN Allergies As of Date: 08/22/2025 Allergen Noted Reaction REGLAN [METOCLOPRAMIDE] 08/25/2021 Mental Status Change Fully Assessed 08/22/2025 ALLERGIES: ALLERGIES Allergen Reactions Reglan [Metoclopram* Mental Status Change psychosis Neuro: GCS: Eyes: Opens eyes spontaneously (4) Verbal: Oriented (5) Motor: Obeys motor commands (6) Total: 15. AANDOx3 FS. TM EOMI PERRL. Speech clear Motor Exam- RUE: 5/5 LUE: 5/5 RLE: 5/5 LLE: 5/5 Sensation: SILT General: NAD. HEENT: - Scattered abrasions CV: RRR on tele Pulm: even, unlabored GI/: abdomen soft, non-tender, non-distended Skin/Extremities: Grossly no (more content not included)... Normal [facility] CT ABD/PEL W IVCONon 025 CT ABD/PEL W IVCON * * *Final Report* * * DATE OF EXAM: Aug 22 2025 1:30PM [facility] 0530 - CT ABD/PEL W IVCON / PROCEDURE REASON: Abdominal trauma, blunt * * * * Physician Interpretation * * * * EXAMINATION: CT CHEST WITH IV CONTRAST and CT ABDOMEN AND PELVIS WITH IV CONTRAST CLINICAL HISTORY: Trauma, fall TECHNIQUE: CT of the chest from the thoracic inlet to the upper abdomen was performed following IV contrast. CT of the abdomen and pelvis was performed using standard technique, scanning from just above the dome of the diaphragm to the symphysis pubis. Sagittal and coronal reconstructions were performed. MQ: CTCAPW_4 Contrast: IV: 100 ml of Omnipaque 350 : ml of CT Radiation dose: Integrated Dose-length product (DLP) for this visit = 2055 mGy*cm. CT Dose Reduction Employed: Automated exposure control(AEC) and iterative recon COMPARISON: CT abdomen 01/20/2006 RESULT: Limitations: None. Chest: Lines, tubes, and devices: None. Lung parenchyma and airways: Areas of atelectasis in dependent portion of both lower lobes. No pneumothorax or pulmonary contusion. Secretions within the trachea. Pleural space: No pleural effusion. No pleural thickening. Lower neck, lymph nodes, and mediastinum: The imaged thyroid gland is normal. No lymphadenopathy in the supraclavicular, axillary, mediastinal, or hilar regions. Heart, pericardium, and thoracic vessels: The thoracic aorta and main pulmonary artery are normal in caliber. The cardiac chambers are normal in size. No coronary artery atherosclerotic calcifications are noted, although the study is not optimized for coronary assessment. No pericardial effusion or thickening. Bones and soft tissues: Multiple rib deformities consistent with healed fractures. Abdomen / Pelvis: Liver: Stable hypodense lesions in the left lobe of the liver favored to represent cyst or other benign lesion. Biliary: No bile duct dilation. Gallbladder is unremarkable. Spleen: No mass. No splenomegaly. Pancreas: No mass or duct dilation. Adrenals: No mass. Kidneys: No renal mass, stone or hydronephrosis. Exophytic cyst mid left kidney measuring 7 cm. There are few subcentimeter low-attenuation lesions in both kidneys which are too small to fully characterize statistically favored to represent additional cysts. GI tract: Innumerable diverticula throughout the colon. No evidence of diverticulitis. Normal appendix. Lymph nodes: No abdominal or pelvic lymphadenopathy. Mesentery/Peritoneum: No ascites or mass. Retroperitoneum: No mass. Vasculature: - Abdominal aorta and iliac arteries: No aneurysm. - Celiac and SMA: Patent without stenosis. - Portal venous system (SMV, splenic vein, portal vein and branches): Patent. - Hepatic veins: Incompletely opacified, likely due to early phase of enhancement. Pelvis: No mass, ascites or fluid collection. Bladder is unremarkable. Bones and soft tissues: No evidence of a fracture. Interbody device at the L3-L4 disc space. Histopathologist (topogram): No additional findings IMPRESSION: 1. No evidence of traumatic injury in the chest, abdomen and pelvis. Bicycle Inspector: PSCSonam Transcribe Date/Time: Aug 22 2025 1:54P Dictated by : GENNA MONREAL MD This examination was interpreted and the report reviewed and electronically signed by: GENNA MONREAL MD on Aug 22 2025 2:12PM EST [id number] Normal [facility] CT BRAIN WO IVCONon 08-22-20 CT BRAIN WO IVCON * * *Final Report* * * * * * SEE BOTTOM OF REPORT FOR ADDENDED TEXT * * * DATE OF EXAM: Aug 22 2025 7:38PM [facility] 0504 - CT BRAIN WO IVCON / PROCEDURE REASON: Subdural hematoma * * * * Physician Interpretation * * * * * * * * * * * * ORIGINAL REPORT * * * * * * * * EXAMINATION: CT BRAIN WO IVCON CLINICAL HISTORY: Subdural hematoma, follow-up. TECHNIQUE: Serial axial images without IV contrast were obtained from the vertex to the foramen magnum. MQ: CTBWO_3 CT Radiation dose: Integrated Dose-Length Product (DLP) for this visit = 783 mGy*cm CT Dose Reduction Employed: Iterative recon COMPARISON: CT dated 08/22/2025. RESULT: Localizer images: No additional findings. Post-operative change: None. Acute change: No evidence of an acute infarct or other acute parenchymal process. Hemorrhage: Interval increase in density of the LEFT holohemispheric subdural hemorrhage reflecting interval bleeding. Mild interval increase in thickness measuring 1.2 cm compared to 1.1 cm on the prior study. Mass effect and midline shift towards RIGHT, unchanged. ECASS hemorrhagic transformation score: Not Applicable Mass Lesion / Mass Effect: There is no evidence of an intracranial mass or extraaxial fluid collection. No significant mass effect. Chronic change: Scattered patchy foci of low attenuation are present within the supratentorial white matter, a nonspecific finding that most commonly represents mild small vessel disease. Parenchyma: There is mild generalized volume loss. The brain parenchyma is otherwise within normal limits for age. Ventricles: The ventricles are within normal limits of size and configuration for age. Paranasal sinuses and skull base: The visualized paranasal sinuses are grossly clear. The skull base and imaged soft tissues are unremarkable. IMPRESSION: 1. Interval increase in density of the LEFT thalamus for subdural hematoma with mild interval increase in size reflecting interval bleeding. 2. Mass effect and midline shift towards RIGHT, unchanged. Recommend continued imaging follow-up. * * * * * * * * ADDENDUM #1 * * * * * * * * COMMUNICATION: Communicated with Piedad Arnold, in tank charger on 08/22/2025 9:57 PM via phone message by Imaging Services Navigator, after multiple attempts to reach provider. Bicycle Inspector: NOE Transcribe Date/Time: Aug 22 2025 9:56P Dictated by : KEVIN SWAIN MD This examination was interpreted and the report reviewed and electronically signed by: KEVIN SWAIN MD on Aug 22 2025 8:09PM EST This document has been addended by: KEVIN SWAIN MD on Aug 22 2025 9:57PM EST [id number] Normal [facility] CT BRAIN WO IVCON * * *Final Report* * * DATE OF EXAM: Aug 22 2025 1:24PM [facility] 0504 - CT BRAIN WO IVCON / PROCEDURE REASON: Head trauma, moderate-severe * * * * Physician Interpretation * * * * EXAMINATION: CT BRAIN WO IVCON CLINICAL HISTORY: Head trauma, TECHNIQUE: Serial axial images without IV contrast were obtained from the vertex to the foramen magnum. MQ: CTBWO_3 CT Radiation dose: Integrated Dose-Length Product (DLP) for this visit = 876 mGy*cm CT Dose Reduction Employed: Iterative recon COMPARISON: MRI brain 09/04/2021 RESULT: Localizer images: Unremarkable. Post-operative change: None. Acute change: No evidence of an acute infarct or other acute parenchymal process. Hemorrhage: Density subdural hematoma over the left frontal and parietal regions likely combination of acute and subacute/chronic hematoma. This measures up to 1.1 cm thickness. There is mild mass effect on the adjacent gyri. There is approximately 3-4 mm of midline shift from left to right. ECASS hemorrhagic transformation score: Not Applicable Mass Lesion : There is no evidence of an intracranial mass or extraaxial fluid collection. No significant mass effect. Chronic change: None apparent. Parenchyma: There is no significant volume loss. The brain parenchyma is otherwise within normal limits for age. Ventricles: The ventricles are within normal limits of size and configuration for age. Paranasal sinuses and skull base: The visualized paranasal sinuses are grossly clear. The skull base and imaged soft tissues are unremarkable. IMPRESSION: Mixed density subdural hematoma along the left frontal parietal region measuring up to 1.1 cm in thickness. This likely represents a mixture of acute and subacute/chronic hematoma. There is mild mass effect on adjacent sulci and approximately 3-4 mm of midline shift from left to right. CRITICAL TEST/RESULTS: Acuity: Critical Finding: Acute intracranial hemorrhage Communication: Communicated with DR. SAMIR DAVIS on 08/22/2025 2:16 PM via verbal communication. --END OF FINDING-- Bicycle Inspector: NOE Transcribe Date/Time: Aug 22 2025 1:48P Dictated by : GENNA MONREAL MD This examination was interpreted and the report reviewed and electronically signed by: GENNA MONREAL MD on Aug 22 2025 2:16PM EST [id number] CRITICAL!! Invalid Interpretation Code [facility] CT CHEST W IVCONon CT CHEST W IVCON * * *Final Report* * * DATE OF EXAM: Aug 22 2025 1:30PM [facility] 0539 - CT CHEST W IVCON / PROCEDURE REASON: Chest trauma, blunt * * * * Physician Interpretation * * * * EXAMINATION: CT CHEST WITH IV CONTRAST and CT ABDOMEN AND PELVIS WITH IV CONTRAST CLINICAL HISTORY: Trauma, fall TECHNIQUE: CT of the chest from the thoracic inlet to the upper abdomen was performed following IV contrast. CT of the abdomen and pelvis was performed using standard technique, scanning from just above the dome of the diaphragm to the symphysis pubis. Sagittal and coronal reconstructions were performed. MQ: CTCAPW_4 Contrast: IV: 100 ml of Omnipaque 350 : ml of CT Radiation dose: Integrated Dose-length product (DLP) for this visit = 2055 mGy*cm. CT Dose Reduction Employed: Automated exposure control(AEC) and iterative recon COMPARISON: CT abdomen 01/20/2006 RESULT: Limitations: None. Chest: Lines, tubes, and devices: None. Lung parenchyma and airways: Areas of atelectasis in dependent portion of both lower lobes. No pneumothorax or pulmonary contusion. Secretions within the trachea. Pleural space: No pleural effusion. No pleural thickening. Lower neck, lymph nodes, and mediastinum: The imaged thyroid gland is normal. No lymphadenopathy in the supraclavicular, axillary, mediastinal, or hilar regions. Heart, pericardium, and thoracic vessels: The thoracic aorta and main pulmonary artery are normal in caliber. The cardiac chambers are normal in size. No coronary artery atherosclerotic calcifications are noted, although the study is not optimized for coronary assessment. No pericardial effusion or thickening. Bones and soft tissues: Multiple rib deformities consistent with healed fractures. Abdomen / Pelvis: Liver: Stable hypodense lesions in the left lobe of the liver favored to represent cyst or other benign lesion. Biliary: No bile duct dilation. Gallbladder is unremarkable. Spleen: No mass. No splenomegaly. Pancreas: No mass or duct dilation. Adrenals: No mass. Kidneys: No renal mass, stone or hydronephrosis. Exophytic cyst mid left kidney measuring 7 cm. There are few subcentimeter low-attenuation lesions in both kidneys which are too small to fully characterize statistically favored to represent additional cysts. GI tract: Innumerable diverticula throughout the colon. No evidence of diverticulitis. Normal appendix. Lymph nodes: No abdominal or pelvic lymphadenopathy. Mesentery/Peritoneum: No ascites or mass. Retroperitoneum: No mass. Vasculature: - Abdominal aorta and iliac arteries: No aneurysm. - Celiac and SMA: Patent without stenosis. - Portal venous system (SMV, splenic vein, portal vein and branches): Patent. - Hepatic veins: Incompletely opacified, likely due to early phase of enhancement. Pelvis: No mass, ascites or fluid collection. Bladder is unremarkable. Bones and soft tissues: No evidence of a fracture. Interbody device at the L3-L4 disc space. Histopathologist (topogram): No additional findings IMPRESSION: 1. No evidence of traumatic injury in the chest, abdomen and pelvis. Bicycle Inspector: NOE Transcribe Date/Time: Aug 22 2025 1:54P Dictated by : GENNA MONREAL MD This examination was interpreted and the report reviewed and electronically signed by: GENNA MONREAL MD on Aug 22 2025 2:12PM EST [id number] Normal [facility] Carbon dioxide, total [Moles /volume] in Central venous bloodOrdered By: Tex Whitney on 08-22-2025 CO2 [Moles/Vol] 25.1 mmol/L 21.0-32.0 [facility] Chloride assayOrdered By: Kareem Whitney on 08-22-2025 Chloride [Moles/Vol] 102 mmol/L 98-108 [facility] Comprehensive Metabolic Prof ilon 08-22-2025 Albumin [Mass/Vol] 3.9 g/dL Normal 3.4-4.8 [facility] [place] Comment on above: Performed By: #### L 500.4050, L100.0100, L300.3900, L300.4310 ####[facility] [address] [place], [address] Albumin/Globulin [Mass ratio] 1.5 {ratio} Normal 0.9-2.4 [facility] Comment on above: Performed By: #### L 500.4050, L100.0100, L300.3900, L300.4310 ####[facility] [address] [place], [address] ALK PHOS 87 U/L Normal 40-129 [facility] Comment on above: Performed By: #### L 500.4050, L100.0100, L300.3900, L300.4310 ####[facility] [address] [place], [address] ALT [Catalytic activity/Vol] U/L Normal <=46 [facility] Comment on above: Performed By: #### L 500.4050, L100.0100, L300.3900, L300.4310 ####[facility] [address] [place], [address] AST [Catalytic activity/Vol] 14 U/L Normal <=37 [facility] Comment on above: Performed By: #### L 500.4050, L100.0100, L300.3900, L300.4310 ####[facility] [address] [place], [address] Bilirubin [Mass/Vol] 0.77 mg/dL Normal 0.00-1.30 [facility] Comment on above: Performed By: #### L 500.4050, L100.0100, L300.3900, L300.4310 ####[facility] [address] [place], [address] BUN/CRE 25.2 RATIO High 10-20 [facility] Comment on above: Performed By: #### L 500.4050, L100.0100, L300.3900, L300.4310 ####[facility] [address] [place], [address] Calcium [Mass/Vol] 9.2 mg/dL Normal 7.6-11.0 [facility] Comment on above: Performed By: #### L 500.4050, L100.0100, L300.3900, L300.4310 ####[facility] [address] [place], [address] Chloride [Moles/Vol] 102 mmol/L Normal 98-108 [facility] Comment on above: Performed By: #### L 500.4050, L100.0100, L300.3900, L300.4310 ####[facility] [address] [place], [address] CO2 [Moles/Vol] 25.1 mmol/L Normal 21.0-32.0 [facility] Comment on above: Performed By: #### L 500.4050, L100.0100, L300.3900, L300.4310 ####[facility] [address] [place], [address] Creatinine [Mass/Vol] 0.91 mg/dL Normal 0.70-1.20 [facility] Comment on above: Performed By: #### L 500.4050, L100.0100, L300.3900, L300.4310 ####[facility] [address] [place], [address] ECRCL 78.16 ml/min Normal 50-250 [facility] Comment on above: Performed By: #### L 500.4050, L100.0100, L300.3900, L300.4310 ####[facility] [address] [place], [address] GAP 11 Normal 5-15 [facility] Comment on above: Performed By: #### L 500.4050, L100.0100, L300.3900, L300.4310 ####[facility] [address] [place], [address] GFR/1.73 sq M.predicted among non-blacks MDRD (S/P/Bld) [Vol rate/Area] 85 mL/min/{1.73_m2} Normal >60 [facility] Comment on above: Result Comment: mL/m in/1.73m2 CKD-EPI Creatinine Equation (2020) Performed By: #### L 500.4050, L100.0100, L300.3900, L300.4310 ####[facility] [address] [place], [address] Globulin (S) [Mass/Vol] 2.6 g/dL Normal 2.2-4.2 [facility] Comment on above: Performed By: #### L 500.4050, L100.0100, L300.3900, L300.4310 ####[facility] [address] [place], [address] Glucose [Mass/Vol] 164 mg/dL High 70-99 [facility] Comment on above: Performed By: #### L 500.4050, L100.0100, L300.3900, L300.4310 ####[facility] [address] [place], [address] Potassium [Moles/Vol] 4.1 mmol/L Normal 3.3-5.1 [facility] Comment on above: Performed By: #### L 500.4050, L100.0100, L300.3900, L300.4310 ####[facility] [address] [place], [address] Sodium [Moles/Vol] 138 mmol/L Normal 133-145 [facility] Comment on above: Performed By: #### L 500.4050, L100.0100, L300.3900, L300.4310 ####[facility] [address] [place], [address] T PROT 6.5 g/dL Normal 5.9-8.4 [facility] Comment on above: Performed By: #### L 500.4050, L100.0100, L300.3900, L300.4310 ####[facility] [address] [place], [address] Urea nitrogen [Mass/Vol] 23 mg/dL High 4-19 [facility] Comment on above: Performed By: #### L 500.4050, L100.0100, L300.3900, L300.4310 ####[facility] [address] [place], [address] Comprehensive metabolic 2000 panelon 08-22-2025 Albumin [Mass/Vol] 3.9 g/dL Normal 3.9-4.9 [facility] Comment on above: Order Comment: Speci men Type: BLOOD SPECIMENOrdering Facility: [facility] [facility] Address: [address] [place] [address] Performed By: #### 2 4323-8 ####[facility] LABORATORYCLIA [id number] [place] [address] [place] ALP [Catalytic activity/Vol] 88 U/L Normal 38-113 [facility] Comment on above: Order Comment: Speci men Type: BLOOD SPECIMENOrdering Facility: [facility] [place] [facility] Address: [address] [place] [address] Performed By: #### 2 4323-8 ####[facility] LABORATORYCLIA [id number] [place] [address] [place] ALT With P-5'-P [Catalytic activity/Vol] U/L Low 10-54 [facility] Comment on above: Order Comment: Speci men Type: BLOOD SPECIMENOrdering Facility: [facility] [place] [facility] Address: [address] [place] [address] Performed By: #### 2 4323-8 ####[facility] LABORATORYCLIA [id number] [address] STATES OF [facility] Anion gap [Moles/Vol] 11 mmol/L Normal 8-15 [facility] Comment on above: Order Comment: Speci men Type: BLOOD SPECIMENOrdering Facility: [facility] [place] [facility] Address: [address] [place] [address] Performed By: #### 2 4323-8 ####[facility] LABORATORYCLIA [id number] [address] [place] AST With P-5'-P [Catalytic activity/Vol] 10 U/L Low 14-40 [facility] Comment on above: Order Comment: Speci men Type: BLOOD SPECIMENOrdering Facility: [facility] [place] [facility] Address: [address] [place] [address] Performed By: #### 2 4323-8 ####[facility] LABORATORYCLIA [id number] [address] [place] Bilirubin [Mass/Vol] 0.8 mg/dL Normal 0.2-1.3 [facility] Comment on above: Order Comment: Speci men Type: BLOOD SPECIMENOrdering Facility: [facility] [place] [facility] Address: [address] [place] [address] Performed By: #### 2 4323-8 ####[facility] LABORATORYCLIA [id number] [place] [address] [place] Calcium [Mass/Vol] 8.9 mg/dL Normal 8.5-10.2 [facility] Comment on above: Order Comment: Speci men Type: BLOOD SPECIMENOrdering Facility: [facility] [place] [facility] Address: [address] [place] [address] Performed By: #### 2 4323-8 ####[facility] LABORATORYCLIA [id number] [place] [address] [place] Chloride [Moles/Vol] 99 mmol/L Normal 98-107 [facility] Comment on above: Order Comment: Speci men Type: BLOOD SPECIMENOrdering Facility: [facility] [place] [facility] Address: [address] [place] [address] Performed By: #### 2 4323-8 ####[facility] LABORATORYCLIA [id number] [place] [address] [place] CO2 [Moles/Vol] 25 mmol/L Normal 22-30 [facility] Comment on above: Order Comment: Speci men Type: BLOOD SPECIMENOrdering Facility: [facility] [place] [facility] Address: [address] [place] [address] Performed By: #### 2 4323-8 ####[facility] LABORATORYCLIA [id number] [place] [address] [place] Creatinine [Mass/Vol] 0.85 mg/dL Normal 0.73-1.22 [facility] Comment on above: Order Comment: Speci men Type: BLOOD SPECIMENOrdering Facility: [facility] [place] [facility] Address: [address] [place] [address] Performed By: #### 2 4323-8 ####[facility] LABORATORYCLIA [id number] [place] [address] [place] eGFRcr SerPlBld CKD-EPI 2020 87 mL/min/1.73m??? Normal >=60 [facility] Comment on above: Order Comment: Devin melendez Type: BLOOD SPECIMENOrdering Facility: [facility] [place] [facility] Address: [address] [place] [address] Result Comment: Pascale mated Glomerular Filtration Rate (eGFR) is calculated using the 2020 CKD-EPI creatinine equation. This equation utilizes serum creatinine, sex, and age as parameters. The creatinine assay has traceable calibration to isotope dilution-mass spectrometry. Refer to KDIGO guidelines for clinical interpretation. In patients with unstable renal function, e.g. those with acute kidney injury, the eGFR may not accurately reflect actual GFR. Performed By: #### 2 4323-8 ####[facility] LABORATORYCLIA [id number] [place] [address] [place] Glucose [Mass/Vol] 152 mg/dL High 74-99 [facility] Comment on above: Order Comment: Devin melendez Type: BLOOD SPECIMENOrdering Facility: [facility] [place] [facility] Address: [address] [place] [address] Result Comment: The [place] Diabetes [employer] (ADA) provides guidance for cutoff values for fasting glucose and random glucose. The ADA defines fasting as no caloric intake for at least 8 hours. Fasting plasma glucose results between 100 to 125 mg/dL indicate increased risk for diabetes (prediabetes). Fasting plasma glucose results greater than or equal to 126 mg/dL meet the criteria for diagnosis of diabetes. In the absence of unequivocal hyperglycemia, results should be confirmed by repeat testing. In a patient with classic symptoms of hyperglycemia or hyperglycemic crisis, random plasma glucose results greater than or equal to 200 mg/dL meet the criteria for diagnosis of diabetes. Reference: Standards of Medical Care in Diabetes 2016, [place] [employer]. Diabetes Care. 2016.39(Suppl 1). Performed By: #### 2 4323-8 ####[facility] [facility] LABORATORYCLIA [id number] [place] [address] [place] Potassium [Moles/Vol] 3.8 mmol/L Normal 3.7-5.1 [facility] Comment on above: Order Comment: Devin melendez Type: BLOOD SPECIMENOrdering Facility: [facility] [place] [facility] Address: [address] [place] [address] Performed By: #### 2 4323-8 ####[facility] LABORATORYCLIA [id number] [place] [address] [place] Protein [Mass/Vol] 6.3 g/dL Normal 6.3-8.0 [facility] Comment on above: Order Comment: Speci men Type: BLOOD SPECIMENOrdering Facility: [facility] [place] [facility] Address: [address] [place] [address] Performed By: #### 2 4323-8 ####[facility] LABORATORYCLIA [id number] [place] [id number] [place] Sodium [Moles/Vol] 135 mmol/L Low 136-144 [facility] Comment on above: Order Comment: Speci men Type: BLOOD SPECIMENOrdering Facility: [facility] [place] [facility] Address: [address] [place] [address] Performed By: #### 2 4323-8 ####[facility] LABORATORYCLIA [id number] [place] [address] [place] Urea nitrogen [Mass/Vol] 21 mg/dL Normal 9-24 [facility] Comment on above: Order Comment: Speci men Type: BLOOD SPECIMENOrdering Facility: [facility] [place] [facility] Address: [address] [place] [address] Performed By: #### 2 4323-8 ####[facility] LABORATORYCLIA [id number] [address] [place] ED NOTEon 08-22-2025 ED NOTE HNO ID: [id number] Author: CHIQUITA BARRAZA RN Service: ? Author Type: Registered Nurse Type: ED Notes Filed: 08/22/2025 16:35 Note Text: Room clean per Chloé on 52A, floor notified [facility] completed. [facility] ED NOTE HNO ID: [id number] Author: ASYA RESTREPO RN Service: Emergency Medicine Author Type: Registered Nurse Type: ED Notes Filed: 08/22/2025 10:54 Note Text: Report given to primary RN Grazyna [facility] ED NOTE HNO ID: [id number] Author: ASYA RESTREPO, MISAEL Service: Emergency Medicine Author Type: Registered Nurse Type: ED Notes Filed: 08/22/2025 10:44 Note Text: PATIENT PLACED ON CITRUS PEELER, NIBP, AND SPO2 FOR CLINICAL MONITORING. Normal [facility] ED NOTE HNO ID: [id number] Author: ALONDRA PIÑA Medic Service: ? Author Type: Sales Trainee and Goat Driver Type: ED Notes Filed: 08/22/2025 10:41 Note Text: Bed: 05-ED Expected date: 08/22/25 Expected time: 10:29 AM Means of arrival: [facility] Comments: [facility] Normal [facility] ED PROV NOTEon 08-22-2025 ED PROV NOTE HNO ID: [id number] Author: SAMIR DAVIS DO Service: Emergency Medicine Author Type: Physician Type: ED Provider Notes Filed: 08/25/2025 07:37 Note Text: ED Provider Note Patient Name: Luis Armando Griffith : 1945 SERVICE DATE: 08/22/25 History Patient presents with: Fall: Patient arrives to the ED aox4. Patient is a transfer from [facility]. Patient had to mechanical falls yesterday at his assisted living. Patient has chronic SDH with 5.8mm midline shift which per EMS is not new. Patient is not on blood thinners. HPI 80-year-old male past medical history of A-fib on aspirin (no reportable additional anticoagulants), and Parkinson's disease, COPD, MELISSA, presents to the emergency department as a transfer from the [facility] following 2 reported mechanical falls that happened yesterday evening at approximately 12:30 AM and 3 AM with no reported LOC but admitting to facial trauma and trauma to the left side body. He reports taking his daily aspirin this morning. He denies any prodromal chest pain, shortness of breath, abdominal pain, lightheadedness, dizziness, or headache. He denies any recent medication changes or surgeries. He states that his initial fall was after his sock got stuck and second fall after attempting to get up from a wheelchair. At the [facility] he had a CT brain and cervical spine positive for acute or chronic subdural hematoma along the left dorsal lateral convexity with midline shift of 5.8 mm to the right. Cervical imaging positive for straightening of the normal cervical lordosis concerning for possible spasm but no fractures. Chronic fx of the L posterolateral orbit wall. Labs appear stable. On arrival the patient complains of nose pain and left lateral rib and left lateral abdominal pain. He denies any focal weakness, headache, acute vision changes, dysarthria or aphasia, shortness of breath, chest pain, hip pain, or numbness/tingling in his extremities. PAST MEDICAL HISTORY Diagnosis Date Chronic obstructive pulmonary disease (COPD) (HCC) Diabetes (HCC) Gait instability 03/18/2022 Generalized anxiety disorder H/O seasonal allergies Imbalance 08/11/2022 Leg weakness, bilateral 08/11/2022 Mixed hyperlipidemia Sleep apnea PAST SURGICAL HISTORY Procedure Laterality Date ADDITIONAL SPINAL FUSION 2000 L4, L3 ELBOW SURGERY HX 1994 Left EXTENSIVE FOREARM SURGERY Left 07/04/2018 Overgrown bone had shortened and plate placed- Per Patient LAPAR LUMBAR FUSION ADDITIONAL 2019 S LEAD SPINAL CORD STIMULATOR 05/19/2021 TOTAL KNEE REPLACEMENT Left 08/14/2006 TOTAL KNEE REPLACEMENT Right 07/30/2012 FAMILY HISTORY Problem Relation Age of Onset Leukemia Father Coronary Artery Disease Mother Tremor Mother Thyroid Sister COPD Sister Tremor Sister Thyroid Sister DVT Sister Tremor Sister Thyroid Sister Thyroid Sister Diabetes Maternal Grandfather Hypertension No Family History Hyperlipidemia No Family History Blood Clots No Family History Factor 5 Leiden No Family History Stroke No Family History Systemic Lupus Erythematosus No Family History Multiple Sclerosis No Family History Bipolar disorder No Family History Schizophrenia No Family History Dementia No Family History Alzheimer's Disease No Family History Parkinson?s Disease No Family History Aneurysm No Family History Social History[1] ALLERGIES Allergen Reactions Reglan [Metoclopram* Mental Status Change psychosis Review of Systems See HPI for further details. Physical Exam Vitals BP Pulse Temp Temp src Resp SpO2 Weight Height 08/22/25 1044 08/22/25 1044 08/22/25 1044 08/22/25 1044 08/22/25 1045 08/22/25 1044 08/22/25 1042 08/22/25 1042 131/70 84 36.8 ?C (98.2 ?F) Axillary 18 95 % 117.9 kg (260 lb) 1.829 m (6') Physical Exam Constitutional: General: He is not in acute distress. Appearance: Normal appearance. He is not ill-appearing, toxic-appearing or diaphoretic. HENT: Nose: Right Nostril: Epistaxis present. Comments: Minor abrasion noted to the spine of the nose and just above the right eyebrow. Without crepitus or deformity. Old epistaxis noted to the right nare. Mouth/Throat: Mouth: Mucous membranes are dry. Pharynx: No oropharyngeal exudate or posterior oropharyngeal erythema. Eyes: Conjunctiva/sclera: Conjunctivae normal. Pupils: Pupils are equal, round, and reactive to light. Cardiovascular: Rate and Rhythm: Normal rate and regular rhythm. Pulses: Normal pulses. Heart sounds: Normal heart sounds. No murmur heard. Pulmonary: Effort: Pulmonary effort is normal. No respiratory distress. Breath sounds: Normal breath sounds. No wheezing or rales. Abdominal: General: Bowel sounds are normal. There is no distension. Palpations: Abdomen is soft. Tenderness: There is no abdominal tenderness. There is no guarding. Comments: Ecchymosis noted to the lateral left abdomen with small abrasion (more content not included)... Normal [facility] ED PROV NOTE HNO ID: [id number] Author: SAMIR DAVIS DO Service: Emergency Medicine Author Type: Physician Type: ED Provider Notes Filed: 08/22/2025 17:05 Note Text: Attending Note I personally saw and examined the patient. I reviewed the resident's note. I agree with the resident's assessment and plan unless otherwise noted. I was present for the significant portion of the procedure(s). Brief HPI: Luis Armando Griffith is a 80 year old male with a PMH as documented below who presents for trauma evaluation. Transferred from the [facility]. Reportedly patient was taken for a routine transfer after he had multiple falls in his assisted living setting. Patient was found to have a subacute versus chronic subdural hemorrhage with approximately 5 mm of midline shift. Patient takes an aspirin daily but not any other long-term antiplatelet or anticoagulation agents. Patient reportedly with no neurologic deficits. Patient with evidence of facial trauma and had a noted remote orbital fracture, but no other acute traumatic injuries. The transferring facility denied any other associated injury. Patient transferred for neurosurgical evaluation. Once here, patient found to have some contusions along the left costal cage/abdomen. Denies significant pain in these areas. Denies nausea, vomiting or abdominal pain. He remains neurologically intact. Denies any headache, sensory loss, weakness or other associated symptoms. PAST MEDICAL HISTORY Diagnosis Date Chronic obstructive pulmonary disease (COPD) (HCC) Diabetes (HCC) Gait instability 03/18/2022 Generalized anxiety disorder H/O seasonal allergies Imbalance 08/11/2022 Leg weakness, bilateral 08/11/2022 Mixed hyperlipidemia Sleep apnea Physical Exam: Patient somewhat slowed, but smiling and pleasantly interactive. Lungs normal respiratory effort. Heart with regular rate and rhythm. Contusion appreciated along the left costal cage and upper abdomen. No abdominal tenderness to deep palpation. Pelvis is stable. No pain with axial loading or logrolling of the hips. Healing ecchymosis appreciated along the right lower extremity. No significant rigidity noted. No extremity weakness. No sensory loss along the trunk or extremities. Normal speech. No confusion. Plan: Patient had completion of his scans given the trauma noted on exam. No acute traumatic injuries appreciated along the chest, abdomen and pelvis. Repeat CT shows improved midline shift when compared to prior report. Images not immediately available. Neurosurgery consulted and recommended DDAVP for reversal of the patient's aspirin with his most recent dose earlier today. Recommended admission to the ICU for continued close monitoring. Patient's neurologic exam was unchanged over the course of his ED stay. Patient accepted for admission under the trauma service. He was in critical, but stable condition throughout his ED stay and admitted in the same. See ED course and resident note for further details Note created using [facility] dictation software and there may be minor grammatical, word sequence or spelling errors. CURRENT, SAMIR Higginbotham 08/22/[address] [facility] EKGon 08-22-2025 Electrocardiogram Ventricular Rate : 8 5 BPM Atrial Rate : 85 BPM P-R Interval : 136 ms QRS Duration : 130 ms Q-T Interval : 398 ms QTC Calculation(Bazett) : 473 ms Calculated P [place] : 24 degrees Calculated R [place] : 74 degrees Calculated T [place] : 6 degrees NORMAL SINUS RHYTHM RIGHT BUNDLE BRANCH BLOCK ABNORMAL ECG Confirmed by KYE EVANS MD ([id number]) on 08/22/2025 12:42:38 PM NAME : LUIS ARMANDO GRIFFITH PID : [id number] : 1945 Gender : Male Race : ORD : Procedure Date : Aug 22 2025 10:47:30 Edit Date : Aug 22 2025 12:42:47 Diagnosis: NORMAL SINUS RHYTHM RIGHT BUNDLE BRANCH BLOCK ABNORMAL ECG Confirmed by KYE EVANS MD ([id number]) on 08/22/2025 12:42:38 PM Test Reason : Location : 4 : [facility] Overread By : KYE EVANS MD Edited By : KYE EVANS MD Referred By : , Acquired by : BRINDA HUITRON Normal [facility] Emergency Department Summary on 08-22-2025 Emergency Department Summary Normal [facility] Eosinophil percentageOrdered By: Tex Whitney on 08-22-2025 Eosinophils/100 WBC (Bld) 2.1 % 0-5 [facility] Erythrocyte distribution wid th ratioOrdered By: [facility] CenterMick on 08-22-2025 Erythrocyte distribution width (RBC) [Ratio] 13.2 % 11.6-14.6 [facility] Erythrocyte distribution wid th standard deviationOrdered By: [facility] Centerjulio Raygoza on 08-22-2025 Erythrocyte distribution width (RBC) [Ratio] 43.7 fl 35.1-43.9 [facility] Glomerular filtration rate ( GFR) estimation/1.73 sq m using serum, plasma, or whole bOrdered By: Tex Whitney on 08-22-2025 GFR/1.73 sq M.predicted among non-blacks MDRD (S/P/Bld) [Vol rate/Area] 85 mL/min/{1.73_m2} >60 [facility] Hematocrit Auto (Bld) [Volum e fraction]Ordered By: Tex Devonte on 08-22-2025 Hematocrit (Bld) [Volume fraction] 42.0 % 40-54 [facility] Hemoglobin measurementOrdere d By: Tex Whitney on 08-22-2025 Hemoglobin (Bld) [Mass/Vol] 14.0 g/dL 13.0-16.5 [facility] Immature granulocytes/100 WB C Auto (Bld)Ordered By: Tex Whitney on 08-22-2025 Immature granulocytes/100 WBC (Bld) 0.600 % 0.0-0.9 [facility] MCV (mean corpuscular volume ) determinationOrdered By: Tex Whitney on 08-22-2025 MCV (RBC) [Entitic vol] 89.4 fL 80-94 [facility] Mean corpuscular hemoglobin (MCH) determinationOrdered By: Tex Whitney on 08-22-2025 MCH (RBC) [Entitic mass] 29.8 pg 27.0-32.0 [facility] Monocyte percentageOrdered B y: Tex Klchin[facility] facilityessieJaret on 08-22-2025 Monocytes/100 WBC (Bld) 11.7 % High 0-10 [facility] Neutrophil percentageOrdered By: [facility] on 08-22-2025 Neutrophils/100 WBC (Bld) 52.7 % 47-70 [facility] No Panel InformationOrdered By: [facility] on 08-22-2025 14 U/L <38 [facility] PT panel Coag (PPP)on 2024 INR Coag (PPP) [Relative time] 1.1 {INR} Normal 0.9-1.3 [facility] Comment on above: Order Comment: Speci men Type: BLOOD SPECIMENOrdering Facility: [facility] [place] [facility] Address: [address] [place] [address] Result Comment: Lisa min K Antagonist (VKA) Therapeutic Range: INR 2 to 3 (Target INR of 2.5) Note: For patients treated with VKA drugs, such as warfarin, the [employer] [place] [employer] 2012 Guideline recommends a therapeutic INR range of 2 to 3 (target INR of 2.5). This recommendation includes high-risk patients with antiphospholipid syndrome with previous arterial or venous thromboembolism, current-generation mechanical or bioprosthetic aortic heart valve replacement. Note: Patients with mechanical aortic valve replacement and additional risk factors for thromboembolic events (atrial fibrillation, previous thromboembolism, LV dysfunction, hypercoagulable conditions) or an older generation mechanical AVR (i.e., ball in-Cage) or any mechanical MVR should have a INR therapeutic range of 2.5 to 3.5 (target INR of 3). Leonie QUESADA, et al. Chest 2012, 141:7S-47S Peggy PAGAN et al. [facility] 2017, 70: 252-289 Performed By: #### 3 4528-0 ####[facility] LABORATORYCLIA [id number] [place] [address] [place] PT Coag (PPP) [Time] 11.8 s Normal 9.7-13.0 [facility] Comment on above: Order Comment: Speci men Type: BLOOD SPECIMENOrdering Facility: [facility] [place] [facility] Address: [address] [place] [address] Performed By: #### 3 4528-0 ####[facility] LABORATORYCLIA [id number] [place] [address] [place] Partial Thromboplast Timeon 08-22-2025 aPTT Coag (Bld) [Time] 27.2 s Normal 24.1-36.2 [facility] Comment on above: Performed By: #### L 500.4050, L100.0100, L300.3900, L300.4310 ####[facility] [address] [place], [place], [id number] Platelet countOrdered By: Kareem Whitney on 08-22-2025 Platelets (Bld) [#/Vol] 254 10*3/uL 150-450 [facility] Potassium measurement (mass/ volume)Ordered By: Tex Whitney on 08-22-2025 Potassium (Unsp spec) [Mass/Vol] 4.1 mmol/L 3.3-5.1 [facility] Prothrombin Time w/INRon INR Coag (PPP) [Relative time] 1.1 {INR} Normal [facility] Comment on above: Performed By: #### L 500.4050, L100.0100, L300.3900, L300.4310 ####[facility] [address] [place], [address] PT Coag (PPP) [Time] 14.3 s Normal 11.7-14.9 [facility] Comment on above: Performed By: #### L 500.4050, L100.0100, L300.3900, L300.4310 ####[facility] [address] [place], [address] Prothrombin timeOrdered By: Tex Whitney on 08-22-2025 PT Coag (PPP) [Time] 14.3 s 11.7-14.9 [facility] RBC Auto (Bld) [#/Vol]Ordere d By: Tex Whitney on 08-22-2025 RBC (Bld) [#/Vol] 4.70 10*6/uL 4.6-6.2 [facility] Serum creatinine measurement (mass/volume)Ordered By: Tex Whitney on 08-22-2025 Creatinine [Mass/Vol] 0.91 mg/dL 0.70-1.20 [facility] Serum globulin measurementOr dered By: Tex Whitney on 08-22-2025 Globulin (S) [Mass/Vol] 2.6 g/dL 2.2-4.2 [facility] Serum glucose measurement (m ass/volume)Ordered By: Tex Whitney on 08-22-2025 Glucose [Mass/Vol] 164 mg/dL High 70-99 [facility] Serum or plasma alanine max otransferase (ALT) measurementOrdered By: Tex Whitney on 08-22-2025 ALT [Catalytic activity/Vol] U/L <47 [facility] Serum or plasma albumin walt urement (mass/volume)Ordered By: Tex Raygoza on 08-22-2025 Albumin [Mass/Vol] 3.9 g/dL 3.4-4.8 [facility] Serum or plasma albumin/glob ulin mass ratioOrdered By: Tex Whitney on 08-22-2025 Albumin/Globulin [Mass ratio] 1.5 {ratio} 0.9-2.4 [facility] Serum or plasma alkaline sarah sphatase measurementOrdered By: Tex Whitney on 08-22-2025 ALP [Catalytic activity/Vol] 87 U/L 40-129 [facility] Serum or plasma calcium walt urement (mass/volume)Ordered By: Tex Raygoza on 08-22-2025 Calcium [Mass/Vol] 9.2 mg/dL 7.6-11.0 [facility] Serum or plasma urea nitroge n measurement (mass/volume)Ordered By: Tex Whitney on 08-22-2025 Urea nitrogen [Mass/Vol] 23 mg/dL High 4-19 [facility] Sinus/Facial Boneon 08-22-20 25 Sinus/Facial Bone Normal [facility] Sodium levelOrdered By: Ruddy Whitney on 08-22-2025 Sodium [Moles/Vol] 138 mmol/L 133-145 [facility] Spine Cervical without Contr ason 08-22-2025 Spine Cervical without Contras Normal [facility] TYPE + SCREENon 08-22-[address] [facility] Comment on above: Order Comment: Speci men Type: BLOOD SPECIMENOrdering Facility: [facility] [place] [facility] Address: [address] [place] [address] Performed By: #### T SCR ####[facility] BLOOD BANKCLIA [id number] [place] [address] [place] Rh Nom (Bld) Positive Normal [facility] Comment on above: Order Comment: Speci men Type: BLOOD SPECIMENOrdering Facility: [facility] [place] [facility] Address: [address] [place] [address] Performed By: #### T SCR ####[facility] BLOOD BANKCLIA [id number] [place] [address] [place] TYPE AND SCREEN EXPIRATION 08/25/2025 23:[address] [facility] Comment on above: Order Comment: Speci men Type: BLOOD SPECIMENOrdering Facility: [facility] [place] [facility] Address: [address] [place] [address] Performed By: #### T SCR ####[facility] BLOOD BANKCLIA [id number] [place] [address] [place] Total proteinOrdered By: Giles Whitney on 08-22-2025 Protein [Mass/Vol] 6.5 g/dL 5.9-8.4 [facility] Urinalysis, Completeon 08-22 BACTERIA Normal None Seen [facility] Comment on above: Order Comment: CLEAN CATCH Result Comment: VIKTOR ENT DEPARTED ER.CANCELLED PER CHLOÉ RN. Performed By: #### L 400.0001 ####[facility] [address] [place], [address] BILIRUBIN URINE Normal Negative [facility] Comment on above: Order Comment: CLEAN CATCH Result Comment: VIKTOR ENT DEPARTED ER.CANCELLED PER CHLOÉ RN. Performed By: #### L 400.0001 ####[facility] [address] [place], [address] Clarity (U) Normal Clear [facility] Comment on above: Order Comment: CLEAN CATCH Result Comment: VIKTOR ENT DEPARTED ER.CANCELLED PER CHLOÉ RN. Performed By: #### L 400.0001 ####[facility] [address] [place], [address] Color (U) Normal Yellow [facility] Comment on above: Order Comment: CLEAN CATCH Result Comment: VIKTOR ENT DEPARTED ER.CANCELLED PER CHLOÉ RN. Performed By: #### L 400.0001 ####[facility] [address] [place], [address] EPI,SQUAMOUS Normal 0-5 [facility] Comment on above: Order Comment: CLEAN CATCH Result Comment: VIKTOR ENT DEPARTED ER.CANCELLED PER CHLOÉ RN. Performed By: #### L 400.0001 ####[facility] [address] [place], [address] GLUCOSE, UR Normal Normal [facility] Comment on above: Order Comment: CLEAN CATCH Result Comment: VIKTOR ENT DEPARTED ER.CANCELLED PER CHLOÉ RN. Performed By: #### L 400.0001 ####[facility] [address] [place], [address] KETONE UR Normal Negative [facility] Comment on above: Order Comment: CLEAN CATCH Result Comment: VIKTOR ENT DEPARTED ER.CANCELLED PER CHLOÉ RN. Performed By: #### L 400.0001 ####[facility] [address] [place], [address] LEUK ESTERASE Normal Negative [facility] Comment on above: Order Comment: CLEAN CATCH Result Comment: VIKTOR ENT DEPARTED ER.CANCELLED PER CHLOÉ RN. Performed By: #### L 400.0001 ####[facility] [address] [place], [address] Mucus Ql (Urine sed) Normal [facility] Comment on above: Order Comment: CLEAN CATCH Result Comment: VIKTOR ENT DEPARTED ER.CANCELLED PER CHLOÉ RN. Performed By: #### L 400.0001 ####[facility] [address] [place], [address] Nitrite Ql (U) Normal Negative [facility] Comment on above: Order Comment: CLEAN CATCH Result Comment: VIKTOR ENT DEPARTED ER.CANCELLED PER CHLOÉ RN. Performed By: #### L 400.0001 ####[facility] [address] [place], [address] OCCULT BLOOD-UR Normal Negative [facility] Comment on above: Order Comment: CLEAN CATCH Result Comment: VIKTOR ENT DEPARTED ER.CANCELLED PER CHLOÉ RN. Performed By: #### L 400.0001 ####[facility] [address] [place], [address] pH UR Normal 5.0 - 8.0 [facility] Comment on above: Order Comment: CLEAN CATCH Result Comment: VIKTOR ENT DEPARTED ER.CANCELLED PER CHLOÉ RN. Performed By: #### L 400.0001 ####[facility] [address] [place], [address] PROT DIPSTX Normal Negative [facility] Comment on above: Order Comment: CLEAN CATCH Result Comment: VIKTOR ENT DEPARTED ER.CANCELLED PER CHLOÉ RN. Performed By: #### L 400.0001 ####[facility] [address] [place], [address] RBC Normal 0-5 [facility] Comment on above: Order Comment: CLEAN CATCH Result Comment: VIKTOR ENT DEPARTED ER.CANCELLED PER CHLOÉ RN. Performed By: #### L 400.0001 ####[facility] [address] [place], [address] SP.GR. DIPSTX Normal 1.002-1.03 0 [facility] Comment on above: Order Comment: CLEAN CATCH Result Comment: VIKTOR ENT DEPARTED ER.CANCELLED PER CHLOÉ RN. Performed By: #### L 400.0001 ####[facility] [address] [place], [address] UR Preservative Normal [facility] Comment on above: Order Comment: CLEAN CATCH Result Comment: VIKTOR ENT DEPARTED ER.CANCELLED PER CHLOÉ RN. Performed By: #### L 400.0001 ####[facility] [address] [place], [address] UROBILI Normal Normal [facility] Comment on above: Order Comment: CLEAN CATCH Result Comment: VIKTOR ENT DEPARTED ER.CANCELLED PER CHLOÉ RN. Performed By: #### L 400.0001 ####[facility] [address] [place], [address] WBC Normal 0-5 [facility] Comment on above: Order Comment: CLEAN CATCH Result Comment: VIKTOR ENT DEPARTED ER.CANCELLED PER CHLOÉ RN. Performed By: #### L 400.0001 ####[facility] [address] [place], [address] White blood cell (WBC) count Ordered By: Tex Whitney on 08-22-2025 WBC (Bld) [#/Vol] 8.5 10*3/uL 4.4-11.0 [facility] XR CHEST 1V FRONTALon 2024 XR CHEST 1V FRONTAL * * *Final Report* * * DATE OF EXAM: Aug 22 2025 11:29AM AKX [id number] - XR CHEST 1V FRONTAL / PROCEDURE REASON: Shortness of breath * * * * Physician Interpretation * * * * EXAMINATION: CHEST RADIOGRAPH (SINGLE VIEW AP OR PA) CLINICAL HISTORY: Shortness of breath, Chest trauma MQ: XC1_5 Comparison: 07/25/2006. RESULT: Lines, tubes, and devices: None. Lungs and pleura: No consolidation. No pleural effusion. No pneumothorax. Cardiomediastinal silhouette: Unchanged. Other: No evidence of acute displaced fractures. IMPRESSION: No radiographic evidence of acute intrathoracic findings. Bicycle Inspector: PSCB Transcribe Date/Time: Aug 22 2025 11:53A Dictated by : YAYA DAVISON MD This examination was interpreted and the report reviewed and electronically signed by: YAYA DAVISON MD on Aug 22 2025 11:54AM EST [id number] Normal [facility] Absolute lymphocyte countOrd ered By: Ja Cooley on 08-15-2025 Lymphocytes Auto (Unsp spec) [#/Vol] 2.72 10*3/uL 0.83-4.51 [facility] Anion gap in Serum or Plasma Ordered By: Ja Cooley on 08-15-2025 Anion gap [Moles/Vol] 22 mmol/L High 5-15 [facility] Automated lymphocyte count a s percentage of total leukocytesOrdered By: Ja Cooley on 08-15-2025 Lymphocytes/100 WBC Auto (Unsp spec) 34.8 % 19-41 [facility] BUN/creatinine ratioOrdered By: Ja Cooley on 08-15-2025 Urea nitrogen/Creatinine [Mass ratio] 24.1 mg/mg High 10-20 [facility] Basophil percentageOrdered B y: Ja Cooley on 08-15-2025 Basophils/100 WBC (Bld) 0.9 % 0-1 [facility] Bilirubin, totalOrdered By: Ja Cooley on 08-15-2025 Bilirubin [Mass/Vol] 0.71 mg/dL 0.00-1.30 [facility] CBC W/Diff, Automatedon 07-22-2024 Absolute Lymph 2.72 X10 3/uL Normal 0.83-4.51 [facility] Comment on above: Order Comment: Order Date: 08/15/25Order Info: [id number] - CBCD Performed By: #### L 500.4050, L501.9985, L501.9520, L500.4100, L100.0100 ####[facility] [address] [place], [address] Absolute Neut 3.9 X10 3/uL Normal 2.0-7.7 [facility] Comment on above: Order Comment: Order Date: 08/15/25Order Info: 0184-1 - CBCD Performed By: #### L 500.4050, L501.9985, L501.9520, L500.4100, L100.0100 ####[facility] [address] [place], [address] Basophils/100 WBC (Bld) 0.9 % Normal 0-1 [facility] Comment on above: Order Comment: Order Date: 08/15/25Order Info: 0184-1 - CBCD Performed By: #### L 500.4050, L501.9985, L501.9520, L500.4100, L100.0100 ####[facility] [address] [place], [address] Eosinophils/100 WBC (Bld) 2.7 % Normal 0-5 [facility] Comment on above: Order Comment: Order Date: 08/15/25Order Info: 0184-1 - CBCD Performed By: #### L 500.4050, L501.9985, L501.9520, L500.4100, L100.0100 ####[facility] [address] [place], [address] Erythrocyte distribution width (RBC) [Ratio] 13.2 % Normal 11.6-14.6 [facility] Comment on above: Order Comment: Order Date: 08/15/25Order Info: 0184-1 - CBCD Performed By: #### L 500.4050, L501.9985, L501.9520, L500.4100, L100.0100 ####[facility] [address] [place], [address] Hematocrit (Bld) [Volume fraction] 43.5 % Normal 40-54 [facility] Comment on above: Order Comment: Order Date: 08/15/25Order Info: 0184-1 - CBCD Performed By: #### L 500.4050, L501.9985, L501.9520, L500.4100, L100.0100 ####[facility] [address] [place], [address] Hemoglobin (Bld) [Mass/Vol] 14.2 g/dL Normal 13.0-16.5 [facility] Comment on above: Order Comment: Order Date: 08/15/25Order Info: 0184-1 - CBCD Performed By: #### L 500.4050, L501.9985, L501.9520, L500.4100, L100.0100 ####[facility] [address] [place], [address] IG% 0.500 Normal 0.0-0.9 [facility] Comment on above: Order Comment: Order Date: 08/15/25Order Info: 0184-1 - CBCD Result Comment: IG% - Immature Granulocytes (promyelocytes, myelocytes andmetamyelocytes) > 1% indicates that a LEFT SHIFT is Present. Performed By: #### L 500.4050, L501.9985, L501.9520, L500.4100, L100.0100 ####[facility] [address] [place], [address] Lymphocytes/100 WBC (Bld) 34.8 % Normal 19-41 [facility] Comment on above: Order Comment: Order Date: 08/15/25Order Info: 0184-1 - CBCD Performed By: #### L 500.4050, L501.9985, L501.9520, L500.4100, L100.0100 ####[facility] [address] [place], [address] MCH (RBC) [Entitic mass] 29.7 pg Normal 27.0-32.0 [facility] Comment on above: Order Comment: Order Date: 08/15/25Order Info: 0184-1 - CBCD Performed By: #### L 500.4050, L501.9985, L501.9520, L500.4100, L100.0100 ####[facility] [address] [place], [address] MCHC (RBC) [Mass/Vol] 32.6 g/dL Normal 32-36 [facility] Comment on above: Order Comment: Order Date: 08/15/25Order Info: 0184- - CBCD Performed By: #### L 500.4050, L501.9985, L501.9520, L500.4100, L100.0100 ####[facility] [address] [place], [address] MCV (RBC) [Entitic vol] 91.0 fL Normal 80-94 [facility] Comment on above: Order Comment: Order Date: 08/15/25Order Info: 0184-1 - CBCD Performed By: #### L 500.4050, L501.9985, L501.9520, L500.4100, L100.0100 ####[facility] [address] [place], [address] Monocytes/100 WBC (Bld) 11.6 % High 0-10 [facility] Comment on above: Order Comment: Order Date: 08/15/25Order Info: 0184-1 - CBCD Performed By: #### L 500.4050, L501.9985, L501.9520, L500.4100, L100.0100 ####[facility] [address] [place], [address] Neutrophils/100 WBC (Bld) 49.5 % Normal 47-70 [facility] Comment on above: Order Comment: Order Date: 08/15/25Order Info: 018-1 - CBCD Performed By: #### L 500.4050, L501.9985, L501.9520, L500.4100, L100.0100 ####[facility] [address] [place], [address] Nucleated RBC (Bld) [#/Vol] 0 10*3/uL Normal 0-5 [facility] Comment on above: Order Comment: Order Date: 08/15/25Order Info: 018- - CBCD Performed By: #### L 500.4050, L501.9985, L501.9520, L500.4100, L100.0100 ####[facility] [address] [place], [address] Platelet mean volume (Bld) [Entitic vol] 10.8 fL Normal 6.2-12.0 [facility] Comment on above: Order Comment: Order Date: 08/15/25Order Info: 018- - CBCD Performed By: #### L 500.4050, L501.9985, L501.9520, L500.4100, L100.0100 ####[facility] [address] [place], [address] Platelets (Bld) [#/Vol] 289 10*3/uL Normal 150-450 [facility] Comment on above: Order Comment: Order Date: 08/15/25Order Info: 018-1 - CBCD Performed By: #### L 500.4050, L501.9985, L501.9520, L500.4100, L100.0100 ####[facility] [address] [place], [address] RBC (Bld) [#/Vol] 4.78 10*6/uL Normal 4.6-6.2 [facility] Comment on above: Order Comment: Order Date: 08/15/25Order Info: 0184-1 - CBCD Performed By: #### L 500.4050, L501.9985, L501.9520, L500.4100, L100.0100 ####[facility] [address] [place], [place], [address] RDW SD 44.5 fl High 35.1-43.9 [facility] Comment on above: Order Comment: Order Date: 08/15/25Order Info: [id number] - CBCD Performed By: #### L 500.4050, L501.9985, L501.9520, L500.4100, L100.0100 ####[facility] [address] [place], [place], [address] WBC (Bld) [#/Vol] 7.8 10*3/uL Normal 4.4-11.0 [facility] Comment on above: Order Comment: Order Date: 08/15/25Order Info: [id number] - CBCD Performed By: #### L 500.4050, L501.9985, L501.9520, L500.4100, L100.0100 ####[facility] [address] [place], [place], [address] Calculated very low density lipoprotein (VLDL) cholesterol measurementOrdered By: Ja Cooley on 08-15-2025 Calculated very low density lipoprotein (VLDL) cholesterol measurement 15 mg/dL 5-40 [facility] Carbon dioxide, total [Moles /volume] in Central venous bloodOrdered By: Ja Cooley on 08-15-2025 CO2 [Moles/Vol] 16.1 mmol/L Low 21.0-32.0 [facility] Chloride assayOrdered By: Rimma Cooley on 08-15-2025 Chloride [Moles/Vol] 103 mmol/L 98-108 [facility] Comprehensive Metabolic Prof ilon 08-15-2025 Albumin [Mass/Vol] 4.1 g/dL Normal 3.4-4.8 [facility] Comment on above: Order Comment: Order Date: 08/15/25Order Info: 07- - CMPOrder Info: [id number] - LIPIDOrder Info: [id number] - TSH Performed By: #### L 500.4050, L501.9985, L501.9520, L500.4100, L100.0100 ####[facility] [address] [place], [address] Albumin/Globulin [Mass ratio] 1.4 {ratio} Normal 0.9-2.4 [facility] Comment on above: Order Comment: Order Date: 08/15/25Order Info: 785- - CMPOrder Info: [id number] - LIPIDOrder Info: [id number] - TSH Performed By: #### L 500.4050, L501.9985, L501.9520, L500.4100, L100.0100 ####[facility] [address] [place], [address] ALK PHOS 90 U/L Normal 40-129 [facility] Comment on above: Order Comment: Order Date: 08/15/25Order Info: 07 - CMPOrder Info: [id number] - LIPIDOrder Info: [id number] - TSH Performed By: #### L 500.4050, L501.9985, L501.9520, L500.4100, L100.0100 ####[facility] [address] [place], [address] ALT [Catalytic activity/Vol] 12 U/L Normal <=46 [facility] Comment on above: Order Comment: Order Date: 08/15/25Order Info: 07- - CMPOrder Info: [id number] - LIPIDOrder Info: 3 - TSH Performed By: #### L 500.4050, L501.9985, L501.9520, L500.4100, L100.0100 ####[facility] [address] [place], [address] AST [Catalytic activity/Vol] 14 U/L Normal <=37 [facility] Comment on above: Order Comment: Order Date: 08/15/25Order Info: [id number] - CMPOrder Info: [id number] - LIPIDOrder Info: 6-3 - TSH Performed By: #### L 500.4050, L501.9985, L501.9520, L500.4100, L100.0100 ####[facility] [address] [place], [address] Bilirubin [Mass/Vol] 0.71 mg/dL Normal 0.00-1.30 [facility] Comment on above: Order Comment: Order Date: 08/15/25Order Info: 0786- - CMPOrder Info: [id number] - LIPIDOrder Info: 3 - TSH Performed By: #### L 500.4050, L501.9985, L501.9520, L500.4100, L100.0100 ####[facility] [address] [place], [address] BUN/CRE 24.1 RATIO High 10-20 [facility] Comment on above: Order Comment: Order Date: 08/15/25Order Info: [id number] - CMPOrder Info: [id number] - LIPIDOrder Info: 6-3 - TSH Performed By: #### L 500.4050, L501.9985, L501.9520, L500.4100, L100.0100 ####[facility] [address] [place], [address] Calcium [Mass/Vol] 8.8 mg/dL Normal 7.6-11.0 [facility] Comment on above: Order Comment: Order Date: 08/15/25Order Info: [id number] - CMPOrder Info: [id number] - LIPIDOrder Info: 6-3 - TSH Performed By: #### L 500.4050, L501.9985, L501.9520, L500.4100, L100.0100 ####[facility] [address] [place], [address] Chloride [Moles/Vol] 103 mmol/L Normal 98-108 [facility] Comment on above: Order Comment: Order Date: 08/15/25Order Info: [id number] - CMPOrder Info: [id number] - LIPIDOrder Info: 3 - TSH Performed By: #### L 500.4050, L501.9985, L501.9520, L500.4100, L100.0100 ####[facility] [address] [place], [address] CO2 [Moles/Vol] 16.1 mmol/L Low 21.0-32.0 [facility] Comment on above: Order Comment: Order Date: 08/15/25Order Info: [id number] - CMPOrder Info: - LIPIDOrder Info: [id number] - TSH Performed By: #### L 500.4050, L501.9985, L501.9520, L500.4100, L100.0100 ####[facility] [address] [place], [address] Creatinine [Mass/Vol] 0.83 mg/dL Normal 0.70-1.20 [facility] Comment on above: Order Comment: Order Date: 08/15/25Order Info: [id number] - CMPOrder Info: [id number] - LIPIDOrder Info: 3 - TSH Performed By: #### L 500.4050, L501.9985, L501.9520, L500.4100, L100.0100 ####[facility] [address] [place], [address] GAP 22 High 5-15 [facility] Comment on above: Order Comment: Order Date: 08/15/25Order Info: [id number] - CMPOrder Info: [id number] - LIPIDOrder Info: 3 - TSH Performed By: #### L 500.4050, L501.9985, L501.9520, L500.4100, L100.0100 ####[facility] [address] [place], [address] GFR/1.73 sq M.predicted among non-blacks MDRD (S/P/Bld) [Vol rate/Area] 88 mL/min/{1.73_m2} Normal >60 [facility] Comment on above: Order Comment: Order Date: 08/15/25Order Info: 07- - CMPOrder Info: [id number] - LIPIDOrder Info: [id number] - TSH Result Comment: mL/m in/1.73m2 CKD-EPI Creatinine Equation (2020) Performed By: #### L 500.4050, L501.9985, L501.9520, L500.4100, L100.0100 ####[facility] [address] [place], [address] Globulin (S) [Mass/Vol] 2.9 g/dL Normal 2.2-4.2 [facility] Comment on above: Order Comment: Order Date: 08/15/25Order Info: 785- - CMPOrder Info: [id number] - LIPIDOrder Info: 6-3 - TSH Performed By: #### L 500.4050, L501.9985, L501.9520, L500.4100, L100.0100 ####[facility] [address] [place], [address] Glucose [Mass/Vol] 94 mg/dL Normal 70-99 [facility] Comment on above: Order Comment: Order Date: 08/15/25Order Info: 0786- - CMPOrder Info: [id number] - LIPIDOrder Info: 6-3 - TSH Performed By: #### L 500.4050, L501.9985, L501.9520, L500.4100, L100.0100 ####[facility] [address] [place], [address] Potassium [Moles/Vol] 4.0 mmol/L Normal 3.3-5.1 [facility] Comment on above: Order Comment: Order Date: 08/15/25Order Info: 07- - CMPOrder Info: [id number] - LIPIDOrder Info: 3 - TSH Performed By: #### L 500.4050, L501.9985, L501.9520, L500.4100, L100.0100 ####[facility] [address] [place], [address] Sodium [Moles/Vol] 141 mmol/L Normal 133-145 [facility] Comment on above: Order Comment: Order Date: 08/15/25Order Info: 07- - CMPOrder Info: [id number] - LIPIDOrder Info: [id number] - TSH Performed By: #### L 500.4050, L501.9985, L501.9520, L500.4100, L100.0100 ####[facility] [address] [place], [address] T PROT 7.0 g/dL Normal 5.9-8.4 [facility] Comment on above: Order Comment: Order Date: 08/15/25Order Info: 07 - CMPOrder Info: [id number] - LIPIDOrder Info: [id number] - TSH Performed By: #### L 500.4050, L501.9985, L501.9520, L500.4100, L100.0100 ####[facility] [address] [place], [address] Urea nitrogen [Mass/Vol] 20 mg/dL High 4-19 [facility] Comment on above: Order Comment: Order Date: 08/15/25Order Info: 07- - CMPOrder Info: [id number] - LIPIDOrder Info: [id number] - TSH Performed By: #### L 500.4050, L501.9985, L501.9520, L500.4100, L100.0100 ####[facility] [address] [place], [place], [address] Eosinophil percentageOrdered By: Ja Cooley on 08-15-2025 Eosinophils/100 WBC (Bld) 2.7 % 0-5 [facility] Erythrocyte distribution wid th ratioOrdered By: Ja Cooley on 08-15-2025 Erythrocyte distribution width (RBC) [Ratio] 13.2 % 11.6-14.6 [facility] Erythrocyte distribution wid th standard deviationOrdered By: Ja Cooley on 08-15-2025 Erythrocyte distribution width (RBC) [Ratio] 44.5 fl High 35.1-43.9 [facility] Glomerular filtration rate ( GFR) estimation/1.73 sq m using serum, plasma, or whole bOrdered By: Ja Cooley on 08-15-2025 GFR/1.73 sq M.predicted among non-blacks MDRD (S/P/Bld) [Vol rate/Area] 88 mL/min/{1.73_m2} >60 [facility] Hematocrit Auto (Bld) [Volum e fraction]Ordered By: Ja Cooley on 08-15-2025 Hematocrit (Bld) [Volume fraction] 43.5 % 40-54 [facility] Hemoglobin A1con 08-15-2025 HbA1c (Bld) [Mass fraction] 6.5 % High <=5.6 [facility] Comment on above: Order Comment: Order Date: 08/15/25Order Info: [id number] - A1C Result Comment: Norm al < 5.7 % Prediabetic 5.7 - 6.4 % Diabetic >or= 6.5 % Please note range changes. Performed By: #### L 500.4050, L501.9985, L501.9520, L500.4100, L100.0100 ####[facility] [address] [place], [place], [address] Hemoglobin A1c percentageOrd ered By: Ja Cooley on 08-15-2025 HbA1c (Bld) [Mass fraction] 6.5 % High <5.7 [facility] Hemoglobin measurementOrdere d By: Ja Cooley on 08-15-2025 Hemoglobin (Bld) [Mass/Vol] 14.2 g/dL 13.0-16.5 [facility] Immature granulocytes/100 WB C Auto (Bld)Ordered By: Ja Cooley on 08-15-2025 Immature granulocytes/100 WBC (Bld) 0.500 % 0.0-0.9 [facility] LDL calc ser/plasOrdered By: Ja Cooley on 08-15-2025 Cholesterol in LDL [Mass/Vol] 62 mg/dL [facility] Lipid Profileon 08-15-2025 CHOL:HDL 2.83 Normal [facility] Comment on above: Order Comment: Order Date: 08/15/25Order Info: [id number] - CMPOrder Info: [id number] - LIPIDOrder Info: [id number] - TSH Performed By: #### L 500.4050, L501.9985, L501.9520, L500.4100, L100.0100 ####[facility] [address] [place], [place], [address] Cholesterol [Mass/Vol] 120 mg/dL Normal <=200 [facility] Comment on above: Order Comment: Order Date: 08/15/25Order Info: [id number] - CMPOrder Info: [id number] - LIPIDOrder Info: [id number] - TSH Result Comment: Chol esterol level, Desirable <200 mg/dLBorderline high cholesterol 200-239 mg/dLHigh cholesterol >=240 mg/dLRecommendations of the NCEP Adult Treatment Panel for thefollowing risk-cutoff thresholds for the [place] Americansum[facility] healthcare regional medical centerulation. Performed By: #### L 500.4050, L501.9985, L501.9520, L500.4100, L100.0100 ####[facility] [address] [place], [place], [address] Cholesterol in HDL [Mass/Vol] 42 mg/dL Normal [facility] Comment on above: Order Comment: Order Date: 08/15/25Order Info: [id number] - CMPOrder Info: [id number] - LIPIDOrder Info: [id number] - TSH Result Comment: Makayla onal Cholesterol Education Program (NCEP) guidelines:<40 mg/dL: Low HDL-cholesterol (major risk factor for CHD)>= 60 mg/dL: High HDL-cholesterol (negative risk factor forCHD)HDL-cholesterol is affected by a number of factors, e.g.smoking, exercise, hormones, sex and age. Performed By: #### L 500.4050, L501.9985, L501.9520, L500.4100, L100.0100 ####[facility] [address] [place], [address] Cholesterol in LDL [Mass/Vol] 62 mg/dL Normal [facility] Comment on above: Order Comment: Order Date: 08/15/25Order Info: [id number] - CMPOrder Info: [id number] - LIPIDOrder Info: [id number] - TSH Result Comment: Bord sfawho=732-571 mg/dL Higher Tadh=299 mg/dL or greaterFriedwald Equation for LDL-C Performed By: #### L 500.4050, L501.9985, L501.9520, L500.4100, L100.0100 ####[facility] [address] [place], [address] Cholesterol in VLDL [Mass/Vol] 15 mg/dL Normal 5-40 [facility] Comment on above: Order Comment: Order Date: 08/15/25Order Info: [id number] - CMPOrder Info: [id number] - LIPIDOrder Info: [id number] - TSH Performed By: #### L 500.4050, L501.9985, L501.9520, L500.4100, L100.0100 ####[facility] [address] [place], [address] Triglyceride [Mass/Vol] 77 mg/dL Normal [facility] Comment on above: Order Comment: Order Date: 08/15/25Order Info: 07-1 - CMPOrder Info: [id number] - LIPIDOrder Info: [id number] - TSH Result Comment: The drugs N-Acetylcysteine and Metamizole may falselydepress this assay.Normal range: <150 mg/dLBorderline High: 150-199 mg/dLHigh: 200-499 mg/dLVery High: >500 mg/dL Performed By: #### L 500.4050, L501.9917, L501.9520, L500.4100, L100.0100 ####[facility] [address] [place], [address] MCV (mean corpuscular volume ) determinationOrdered By: Ja Cooley on 08-15-2025 MCV (RBC) [Entitic vol] 91.0 fL 80-94 [facility] Mean corpuscular hemoglobin (MCH) determinationOrdered By: Ja Cooley on 08-15-2025 MCH (RBC) [Entitic mass] 29.7 pg 27.0-32.0 [facility] Monocyte percentageOrdered B y: Ja Cooley on 08-15-2025 Monocytes/100 WBC (Bld) 11.6 % High 0-10 [facility] Neutrophil percentageOrdered By: Ja Cooley on 08-15-2025 Neutrophils/100 WBC (Bld) 49.5 % 47-70 [facility] No Panel InformationOrdered By: Ja Cooley on 08-15-2025 14 U/L <38 [facility] Platelet countOrdered By: Rimma Cooley on 08-15-2025 Platelets (Bld) [#/Vol] 289 10*3/uL 150-450 [facility] Potassium measurement (mass/ volume)Ordered By: Ja Cooley on 08-15-2025 Potassium (Unsp spec) [Mass/Vol] 4.0 mmol/L 3.3-5.1 [facility] RBC Auto (Bld) [#/Vol]Ordere d By: Ja Cooley on 08-15-2025 RBC (Bld) [#/Vol] 4.78 10*6/uL 4.6-6.2 [facility] Serum creatinine measurement (mass/volume)Ordered By: Ja Cooley on 08-15-2025 Creatinine [Mass/Vol] 0.83 mg/dL 0.70-1.20 [facility] Serum globulin measurementOr dered By: Ja Cooley on 08-15-2025 Globulin (S) [Mass/Vol] 2.9 g/dL 2.2-4.2 [facility] Serum glucose measurement (m ass/volume)Ordered By: Ja Cooley on 08-15-2025 Glucose [Mass/Vol] 94 mg/dL 70-99 [facility] Serum or plasma alanine max otransferase (ALT) measurementOrdered By: Ja Cooley on 08-15-2025 ALT [Catalytic activity/Vol] 12 U/L <47 [facility] Serum or plasma albumin walt urement (mass/volume)Ordered By: Ja Cooley on 08-15-2025 Albumin [Mass/Vol] 4.1 g/dL 3.4-4.8 [facility] Serum or plasma albumin/glob ulin mass ratioOrdered By: Ja Cooley on 08-15-2025 Albumin/Globulin [Mass ratio] 1.4 {ratio} 0.9-2.4 [facility] Serum or plasma alkaline sarah sphatase measurementOrdered By: Ja Cooley on 08-15-2025 ALP [Catalytic activity/Vol] 90 U/L 40-129 [facility] Serum or plasma calcium walt urement (mass/volume)Ordered By: Ja Cooley on 08-15-2025 Calcium [Mass/Vol] 8.8 mg/dL 7.6-11.0 [facility] Serum or plasma cholesterol in HDL measurement (mass/volume)Ordered By: Ja Cooley on 08-15-2025 Cholesterol in HDL [Mass/Vol] 42 mg/dL >40 [facility] Serum or plasma cholesterol measurement (mass/volume)Ordered By: Ja Cooley on 08-15-2025 Cholesterol [Mass/Vol] 120 mg/dL <201 [facility] Serum or plasma urea nitroge n measurement (mass/volume)Ordered By: Ja Cooley on 08-15-2025 Urea nitrogen [Mass/Vol] 20 mg/dL High 4-19 [facility] Sodium levelOrdered By: Ja Cooley on 08-15-2025 Sodium [Moles/Vol] 141 mmol/L 133-145 [facility] TSH DL <= 0.005 mIU/L QnOrde red By: Ja Cooley on 08-15-2025 TSH Qn 1.640 uIU/mL 0.300-4.20 0 [facility] [facility] Thy[facility] Stim Hormone (TSH)on 08-15-2025 TSH 1.640 uIU/mL Normal 0.300-4.20 0 [facility] Comment on above: Order Comment: Order Date: 08/15/25Order Info: [id number] - CMPOrder Info: [id number] - LIPIDOrder Info: [id number] - TSH Performed By: #### L 500.4050, L501.9985, L501.9520, L500.4100, L100.0100 ####[facility] [address] [place], [place], [id number] Total proteinOrdered By: Kwabena Cooley on 08-15-2025 Protein [Mass/Vol] 7.0 g/dL 5.9-8.4 [facility] [place] Vitamin D,25 Hydroxyon 08-15 Vitamin D 25-OH 46.6 ng/mL Normal 30-100 [facility] Comment on above: Order Comment: Order Date: 08/15/25Order Info: [id number] - CMPOrder Info: [id number] - LIPIDOrder Info: [id number] - TSH Result Comment: Lisa min D StatusDeficiency: <20 ng/mL (50nmol/L)Insufficiency: 20-30 ng/mL (50-75 nmol/L)Sufficiency: 30-100 ng/mL (75-250 nmol/L)Toxicity: >100 ng/mL (>250 nmol/L) Performed By: #### L 506.1001 ####[facility] [address] [place], [place], [id number] White blood cell (WBC) count Ordered By: Ja Cooley on 08-15-2025 WBC (Bld) [#/Vol] 7.8 10*3/uL 4.4-11.0 [facility] Urine Cultureon 07-15-2025 URC Below infection leve l. Mixed Gram Positive Organisms [place] Count 1000-10,000 MIXC Mixed contaminants. Submit a new specimen if indicated. Normal [facility] Comment on above: Performed By: #### M 100.2200 ####[facility] [address] [place], [address] Anion gap in Serum or Plasma Ordered By: Surya Dumont on 07-12-2025 Anion gap [Moles/Vol] 13 mmol/L 5-15 [facility] BUN/creatinine ratioOrdered By: Surya Dumont on 07-12-2025 Urea nitrogen/Creatinine [Mass ratio] 20.4 mg/mg High 10- [facility] Basic Metabolic Profile (BMP )on 07-12-2025 BUN/CRE 20.4 RATIO High - [facility] Comment on above: Performed By: #### L 500.2500 ####[facility] [address] [place], [address] Calcium [Mass/Vol] 9.0 mg/dL Normal 7.6-11.0 [facility] Comment on above: Performed By: #### L 500.2500 ####[facility] [address] [place], [address] Chloride [Moles/Vol] 104 mmol/L Normal 98-108 [facility] Comment on above: Performed By: #### L 500.2500 ####[facility] [address] [place], [address] CO2 [Moles/Vol] 24.0 mmol/L Normal 21.0-32.0 [facility] Comment on above: Performed By: #### L 500.2500 ####[facility] [address] [place], [address] Creatinine [Mass/Vol] 1.16 mg/dL Normal 0.70-1.20 [facility] Comment on above: Performed By: #### L 500.2500 ####[facility] [address] [place], [address] ECRCL 63.51 ml/min Normal 50-250 [facility] Comment on above: Performed By: #### L 500.2500 ####[facility] [address] [place], [address] GAP 13 Normal 5-15 [facility] Comment on above: Performed By: #### L 500.2500 ####[facility] [address] [place], [address] GFR/1.73 sq M.predicted among non-blacks MDRD (S/P/Bld) [Vol rate/Area] 64 mL/min/{1.73_m2} Normal >60 [facility] Comment on above: Result Comment: mL/m in/1.73m2 CKD-EPI Creatinine Equation (2020) Performed By: #### L 500.2500 ####[facility] [address] [place], [address] Glucose [Mass/Vol] 256 mg/dL High 70-99 [facility] Comment on above: Performed By: #### L 500.2500 ####[facility] [address] [place], [address] Potassium [Moles/Vol] 4.0 mmol/L Normal 3.3-5.1 [facility] Comment on above: Performed By: #### L 500.2500 ####[facility] [address] [place], [address] Sodium [Moles/Vol] 141 mmol/L Normal 133-145 [facility] Comment on above: Performed By: #### L 500.2500 ####[facility] [address] [place], [address] Urea nitrogen [Mass/Vol] 24 mg/dL High 4-19 [facility] Comment on above: Performed By: #### L 500.2500 ####[facility] [address] [place], [address] Bilirubin Test strip Ql (U)O rdered By: Surya Dumont on 07-12-2025 Bilirubin Ql (U) Negative Negative [facility] Brain/Head without Contrasto n 07-12-2025 Brain/Head without Contrast Normal [facility] Carbon dioxide, total [Moles /volume] in Central venous bloodOrdered By: Surya Dumont on 07-12-2025 CO2 [Moles/Vol] 24.0 mmol/L 21.0-32.0 [facility] Chloride assayOrdered By: Rusty Dumont on 07-12-2025 Chloride [Moles/Vol] 104 mmol/L 98-108 [facility] Emergency Department Summary on 07-12-2025 Emergency Department Summary Normal [facility] Glomerular filtration rate ( GFR) estimation/1.73 sq m using serum, plasma, or whole bOrdered By: Surya Dumont on 07-12-2025 GFR/1.73 sq M.predicted among non-blacks MDRD (S/P/Bld) [Vol rate/Area] 64 mL/min/{1.73_m2} >60 [facility] Comment on above: mL/min/1.73m2 CKD-EP I Creatinine Equation (2020) Ketones Test strip Ql (U)Ord ered By: Surya Dumont on 07-12-2025 Ketones Ql (U) 5 mg/dl High Negative [facility] Microscopic analysis of urin e for red blood cells (RBC)Ordered By: Surya Dumont on 07-12-2025 Microscopic analysis of urine for red blood cells (RBC) 0-5 SEEN /hpf 0-5 [facility] Mucus LM Ql (Urine sed)Order ed By: Surya Dumont on 07-12-2025 Mucus Ql (Urine sed) 0 SEEN /hpf [facility] Nitrite Test strip Ql (U)Ord ered By: Surya Dumont on 07-12-2025 Nitrite Ql (U) Negative Negative [facility] Potassium measurement (mass/ volume)Ordered By: Surya Dumont on 07-12-2025 Potassium (Unsp spec) [Mass/Vol] 4.0 mmol/L 3.3-5.1 [facility] Protein Test strip Ql (U)Ord ered By: Surya Dumont on 07-12-2025 Protein Ql (U) 30 mg/dl High Negative [facility] Serum creatinine measurement (mass/volume)Ordered By: Surya Dumont on 07-12-2025 Creatinine [Mass/Vol] 1.16 mg/dL 0.70-1.20 [facility] Serum glucose measurement (m ass/volume)Ordered By: Surya Dumont on 07-12-2025 Glucose [Mass/Vol] 256 mg/dL High 70-99 [facility] Serum or plasma calcium walt urement (mass/volume)Ordered By: Surya Dumont on 07-12-2025 Calcium [Mass/Vol] 9.0 mg/dL 7.6-11.0 [facility] Serum or plasma urea nitroge n measurement (mass/volume)Ordered By: Surya Dumont on 07-12-2025 Urea nitrogen [Mass/Vol] 24 mg/dL High 4-19 [facility] Sodium levelOrdered By: Surya Dumont on 07-12-2025 Sodium [Moles/Vol] 141 mmol/L 133-145 [facility] Squamous epithelial cells de tection in urine sediment by light microscopyOrdered By: Surya Dumont on 07-12-2025 Epithelial cells.squamous LM Ql (Urine sed) 0 SEEN /hpf 0-5 [facility] Urinalysis, Completeon 07-12 RBC 0-5 SEEN Normal 0-5 [facility] Comment on above: Order Comment: CLEAN CATCH Performed By: #### L 400.0001 ####[facility] [address] [place], [place], [id number] WBC 0-5 SEEN Normal 0-5 [facility] Comment on above: Order Comment: CLEAN CATCH Performed By: #### L 400.0001 ####[facility] [address] [place], [address] BACTERIA 0 SEEN Normal None Seen [facility] Comment on above: Order Comment: CLEAN CATCH Performed By: #### L 400.0001 ####[facility] [address] [place], [address] EPI,SQUAMOUS 0 SEEN Normal 0-5 [facility] Comment on above: Order Comment: CLEAN CATCH Performed By: #### L 400.0001 ####[facility] [address] [place], [address] Mucus Ql (Urine sed) 0 SEEN Normal [facility] Comment on above: Order Comment: CLEAN CATCH Performed By: #### L 400.0001 ####[facility] [address] [place], [address] Urine clarityOrdered By: Tia Dumont on 07-12-2025 Clarity (U) Clear Clear [facility] Urine color determinationOrd ered By: Surya Dumont on 07-12-2025 Color (U) Yellow Yellow [facility] Urine cultureOrdered By: Tia Dumont on 07-12-2025 Bacteria identified Cx Nom (U) Positive Abnormal [facility] Urine glucose detectionOrder ed By: Surya Dumont on 07-12-2025 Glucose Ql (U) 1000 mg/dl High Normal [facility] Urine leukocyte esterase det ection by dipstickOrdered By: Surya Dumont on 07-12-2025 Leukocyte esterase Test strip Ql (U) Negative Negative [facility] Urine pHOrdered By: Surya zamarripa on 07-12-2025 pH (U) 6.0 [pH] 5.0 - 8.0 [facility] Urine sediment bacteria coun t by microscopy (number/high power field)Ordered By: Surya Dumont on 07-12-2025 Bacteria LM.HPF (Urine sed) [#/Area] 0 /[HPF] None Seen [facility] Urine specific gravity measu rementOrdered By: Surya Dumont on 07-12-2025 Specific gravity (U) [Rel density] 1.020 1.002-1.03 0 [facility] Urine urobilinogen measureme ntOrdered By: Surya Dumont on 07-12-2025 Urobilinogen Ql (U) 1 mg/dl High Normal [facility] White blood cell countOrdere d By: Surya Dumont on 07-12-2025 White blood cell count 0-5 SEEN /hpf 0-5 [facility] Brain/Head without Contrasto n 07-07-2025 Brain/Head without Contrast Normal [facility] Emergency Department Summary on 07-07-2025 Emergency Department Summary Normal [facility] Knee 4 or More Viewson 07-07 Knee 4 or More Views Normal [facility] Spine Cervical without Contr ason 07-07-2025 Spine Cervical without Contras Normal [facility] Bilirubin Test strip Ql (U)O rdered By: Ja Cooley on 07-05-2025 Bilirubin Ql (U) Negative Negative [facility] Ketones Test strip Ql (U)Ord ered By: Ja Cooley on 07-05-2025 Ketones Ql (U) 5 mg/dl High Negative [facility] Microscopic analysis of urin e for red blood cells (RBC)Ordered By: Ja Cooley on 07-05-2025 Microscopic analysis of urine for red blood cells (RBC) 0 SEEN /hpf 0-5 [facility] Mucus LM Ql (Urine sed)Order ed By: Ja Cooley on 07-05-2025 Mucus Ql (Urine sed) 0 SEEN /hpf [facility] Nitrite Test strip Ql (U)Ord ered By: Ja Cooley on 07-05-2025 Nitrite Ql (U) Negative Negative [facility] Protein Test strip Ql (U)Ord ered By: Ja Cooley on 07-05-2025 Protein Ql (U) 15 mg/dl High Negative [facility] Squamous epithelial cells de tection in urine sediment by light microscopyOrdered By: Ja Cooley on 07-05-2025 Epithelial cells.squamous LM Ql (Urine sed) 0 SEEN /hpf 0-5 [facility] Urine clarityOrdered By: Kwabena Cooley on 07-05-2025 Clarity (U) Clear Clear [facility] Urine color determinationOrd ered By: Ja Cooley on 07-05-2025 Color (U) Yellow Yellow [facility] Urine cultureOrdered By: Kwabena Cooley on 07-05-2025 Bacteria identified Cx Nom (U) Culture exhibits no growth. [facility] Urine glucose detectionOrder ed By: Ja Cooley on 07-05-2025 Glucose Ql (U) Normal mg/dl Normal [facility] Urine leukocyte esterase det ection by dipstickOrdered By: Ja Cooley on 07-05-2025 Leukocyte esterase Test strip Ql (U) Negative Negative [facility] Urine pHOrdered By: Ja marcos on 07-05-2025 pH (U) 7.0 [pH] 5.0 - 8.0 [facility] Urine sediment bacteria coun t by microscopy (number/high power field)Ordered By: Ja Cooley on 07-05-2025 Bacteria LM.HPF (Urine sed) [#/Area] 0 /[HPF] None Seen [facility] Urine specific gravity measu rementOrdered By: Ja Cooley on 07-05-2025 Specific gravity (U) [Rel density] 1.010 1.002-1.03 0 [facility] Urine urobilinogen measureme ntOrdered By: Ja Cooley on 07-05-2025 Urobilinogen Ql (U) 4 mg/dl High Normal [facility] White blood cell countOrdere d By: Ja Cooley on 07-05-2025 White blood cell count 0 SEEN /hpf 0-5 [facility] Cardiology Visit Reporton Cardiology Visit Report Normal [facility] Neurology Visit Reporton Neurology Visit Report Normal [facility] Surgery Visit Reporton 06-24 Surgery Visit Report Normal [facility] Brain/Head without Contrasto n 06-19-2025 Brain/Head without Contrast Normal [facility] Emergency Department Summary on 06-19-2025 Emergency Department Summary Normal [facility] 12 Lead EKGon 06-12-2025 12 Lead EKG Normal [facility] Absolute lymphocyte countOrd ered By: Maty Dial on 06-12-2025 Lymphocytes Auto (Unsp spec) [#/Vol] 3.14 10*3/uL 0.83-4.51 [facility] Absolute neutrophil countOrd ered By: Maty Dial on 06-12-2025 Neutrophils (Bld) [#/Vol] 5.2 10*3/uL 2.0-7.7 [facility] Anion gap in Serum or Plasma Ordered By: Maty Dial on 06-12-2025 Anion gap [Moles/Vol] 10 mmol/L 5-15 [facility] Automated lymphocyte count a s percentage of total leukocytesOrdered By: Maty Dial on 06-12-2025 Lymphocytes/100 WBC Auto (Unsp spec) 32.8 % 19-41 [facility] BUN/creatinine ratioOrdered By: Maty Dial on 06-12-2025 Urea nitrogen/Creatinine [Mass ratio] 25.6 mg/mg High - [facility] Basic Metabolic Profile (BMP )on 06-12-2025 BUN/CRE 25.6 RATIO High - [facility] Comment on above: Performed By: #### L 500.2500, L100.0100 ####[facility] [address] [place], [address] Calcium [Mass/Vol] 9.1 mg/dL Normal 7.6-11.0 [facility] Comment on above: Performed By: #### L 500.2500, L100.0100 ####[facility] [address] [place], [address] Chloride [Moles/Vol] 102 mmol/L Normal 98-108 [facility] Comment on above: Performed By: #### L 500.2500, L100.0100 ####[facility] [address] [place], [address] CO2 [Moles/Vol] 26.6 mmol/L Normal 21.0-32.0 [facility] Comment on above: Performed By: #### L 500.2500, L100.0100 ####[facility] [address] [place], [address] Creatinine [Mass/Vol] 0.94 mg/dL Normal 0.70-1.20 [facility] Comment on above: Performed By: #### L 500.2500, L100.0100 ####[facility] [address] [place], [address] ECRCL 79.57 ml/min Normal 50-250 [facility] Comment on above: Performed By: #### L 500.2500, L100.0100 ####[facility] [address] [place], [address] GAP 10 Normal 5-15 [facility] Comment on above: Performed By: #### L 500.2500, L100.0100 ####[facility] [address] [place], [address] GFR/1.73 sq M.predicted among non-blacks MDRD (S/P/Bld) [Vol rate/Area] 82 mL/min/{1.73_m2} Normal >60 [facility] Comment on above: Result Comment: mL/m in/1.73m2 CKD-EPI Creatinine Equation (2020) Performed By: #### L 500.2500, L100.0100 ####[facility] [address] [place], [address] Glucose [Mass/Vol] 202 mg/dL High 70-99 [facility] Comment on above: Performed By: #### L 500.2500, L100.0100 ####[facility] [address] [place], [address] Potassium [Moles/Vol] 4.3 mmol/L Normal 3.3-5.1 [facility] Comment on above: Performed By: #### L 500.2500, L100.0100 ####[facility] [address] [place], [address] Sodium [Moles/Vol] 139 mmol/L Normal 133-145 [facility] Comment on above: Performed By: #### L 500.2500, L100.0100 ####[facility] [address] [place], [address] Urea nitrogen [Mass/Vol] 24 mg/dL High 4-19 [facility] Comment on above: Performed By: #### L 500.2500, L100.0100 ####[facility] [address] [place], [address] Basophil percentageOrdered B y: Maty Dial on 06-12-2025 Basophils/100 WBC (Bld) 0.6 % 0-1 [facility] Bedside Glucoseon 06-12-2025 FINGERSTICK GLU 186 mg/dL High 74-106 [facility] Comment on above: Result Comment: GARY REYES OF PATIENT CARE PER NURSING PROTOCOL Performed By: #### L 501.080 ####[facility] [address] [place], [address] Bilirubin Test strip Ql (U)O rdered By: Maty Dial on 06-12-2025 Bilirubin Ql (U) Negative Negative [facility] Brain/Head without Contrasto n 06-12-2025 Brain/Head without Contrast Normal [facility] CBC W/Diff, Automatedon 05-21 Absolute Lymph 3.14 X10 3/uL Normal 0.83-4.51 [facility] Comment on above: Performed By: #### L 500.2500, L100.0100 ####[facility] [address] [place], [address] Absolute Neut 5.2 X10 3/uL Normal 2.0-7.7 [facility] Comment on above: Performed By: #### L 500.2500, L100.0100 ####[facility] [address] [place], [address] Basophils/100 WBC (Bld) 0.6 % Normal 0-1 [facility] Comment on above: Performed By: #### L 500.2500, L100.0100 ####[facility] [address] [place], [address] Eosinophils/100 WBC (Bld) 1.9 % Normal 0-5 [facility] Comment on above: Performed By: #### L 500.2500, L100.0100 ####[facility] [address] [place], [address] Erythrocyte distribution width (RBC) [Ratio] 12.9 % Normal 11.6-14.6 [facility] Comment on above: Performed By: #### L 500.2500, L100.0100 ####[facility] [address] [place], [address] Hematocrit (Bld) [Volume fraction] 41.3 % Normal 40-54 [facility] Comment on above: Performed By: #### L 500.2500, L100.0100 ####[facility] [address] [place], [address] Hemoglobin (Bld) [Mass/Vol] 13.6 g/dL Normal 13.0-16.5 [facility] Comment on above: Performed By: #### L 500.2500, L100.0100 ####[facility] [address] [place], [address] IG% 0.600 Normal 0.0-0.9 [facility] Comment on above: Result Comment: IG% - Immature Granulocytes (promyelocytes, myelocytes andmetamyelocytes) > 1% indicates that a LEFT SHIFT is Present. Performed By: #### L 500.2500, L100.0100 ####[facility] [address] [place], [address] Lymphocytes/100 WBC (Bld) 32.8 % Normal 19-41 [facility] Comment on above: Performed By: #### L 500.2500, L100.0100 ####[facility] [address] [place], [address] MCH (RBC) [Entitic mass] 30.2 pg Normal 27.0-32.0 [facility] Comment on above: Performed By: #### L 500.2500, L100.0100 ####[facility] [address] [place], [address] MCHC (RBC) [Mass/Vol] 32.9 g/dL Normal 32-36 [facility] Comment on above: Performed By: #### L 500.2500, L100.0100 ####[facility] [address] [place], [address] MCV (RBC) [Entitic vol] 91.8 fL Normal 80-94 [facility] Comment on above: Performed By: #### L 500.2500, L100.0100 ####[facility] [address] [place], [address] Monocytes/100 WBC (Bld) 9.4 % Normal 0-10 [facility] Comment on above: Performed By: #### L 500.2500, L100.0100 ####[facility] [address] [place], [address] Neutrophils/100 WBC (Bld) 54.7 % Normal 47-70 [facility] Comment on above: Performed By: #### L 500.2500, L100.0100 ####[facility] [address] [place], [address] Nucleated RBC (Bld) [#/Vol] 0 10*3/uL Normal 0-5 [facility] Comment on above: Performed By: #### L 500.2500, L100.0100 ####[facility] [address] [place], [address] Platelet mean volume (Bld) [Entitic vol] 10.4 fL Normal 6.2-12.0 [facility] Comment on above: Performed By: #### L 500.2500, L100.0100 ####[facility] [address] [place], [address] Platelets (Bld) [#/Vol] 243 10*3/uL Normal 150-450 [facility] Comment on above: Performed By: #### L 500.2500, L100.0100 ####[facility] [address] [place], [address] RBC (Bld) [#/Vol] 4.50 10*6/uL Low 4.6-6.2 [facility] Comment on above: Performed By: #### L 500.2500, L100.0100 ####[facility] [address] [place], [address] RDW SD 42.7 fl Normal 35.1-43.9 [facility] Comment on above: Performed By: #### L 500.2500, L100.0100 ####[facility] [address] [place], [address] WBC (Bld) [#/Vol] 9.6 10*3/uL Normal 4.4-11.0 [facility] Comment on above: Performed By: #### L 500.2500, L100.0100 ####[facility] [address] [place], [address] Carbon dioxide, total [Moles /volume] in Central venous bloodOrdered By: Maty Dial on 06-12-2025 CO2 [Moles/Vol] 26.6 mmol/L 21.0-32.0 [facility] Chloride assayOrdered By: Ignacio Dial on 06-12-2025 Chloride [Moles/Vol] 102 mmol/L 98-108 [facility] Emergency Department Summary on 06-12-2025 Emergency Department Summary Normal [facility] Eosinophil percentageOrdered By: Maty Dial on 06-12-2025 Eosinophils/100 WBC (Bld) 1.9 % 0-5 [facility] Erythrocyte distribution wid th ratioOrdered By: Maty Dial on 06-12-2025 Erythrocyte distribution width (RBC) [Ratio] 12.9 % 11.6-14.6 [facility] Erythrocyte distribution wid th standard deviationOrdered By: Maty Dial on 06-12-2025 Erythrocyte distribution width (RBC) [Ratio] 42.7 fl 35.1-43.9 [facility] Glomerular filtration rate ( GFR) estimation/1.73 sq m using serum, plasma, or whole bOrdered By: Maty Dial on 06-12-2025 GFR/1.73 sq M.predicted among non-blacks MDRD (S/P/Bld) [Vol rate/Area] 82 mL/min/{1.73_m2} >60 [facility] Comment on above: mL/min/1.73m2 CKD-EP I Creatinine Equation (2020) Glucose measurement at bedsi deOrdered By: Maty Dial on 06-12-2025 Glucose [Mass/Vol] 186 mg/dL High 74-106 [facility] Comment on above: MANAGEMENT OF PATIEN T CARE PER NURSING PROTOCOL Hematocrit Auto (Bld) [Volum e fraction]Ordered By: Maty Dial on 06-12-2025 Hematocrit (Bld) [Volume fraction] 41.3 % 40-54 [facility] Hemoglobin measurementOrdere d By: Maty Dial on 06-12-2025 Hemoglobin (Bld) [Mass/Vol] 13.6 g/dL 13.0-16.5 [facility] Immature granulocytes/100 WB C Auto (Bld)Ordered By: Maty Dial on 06-12-2025 Immature granulocytes/100 WBC (Bld) 0.600 % 0.0-0.9 [facility] Comment on above: IG% - Immature Granu locytes (promyelocytes, myelocytes and metamyelocytes) > 1% indicates that a LEFT SHIFT is Present. Ketones Test strip Ql (U)Ord ered By: Maty Dial on 06-12-2025 Ketones Ql (U) 15 mg/dl High Negative [facility] MCV (mean corpuscular volume ) determinationOrdered By: Maty Dial on 06-12-2025 MCV (RBC) [Entitic vol] 91.8 fL 80-94 [facility] Mean corpuscular hemoglobin (MCH) determinationOrdered By: Maty Dial on 06-12-2025 MCH (RBC) [Entitic mass] 30.2 pg 27.0-32.0 [facility] Mean corpuscular hemoglobin concentration (MCHC) determinationOrdered By: Maty Dial on 06-12-2025 MCHC (RBC) [Mass/Vol] 32.9 g/dL 32-36 [facility] Mean platelet volume determi nationOrdered By: Maty Dial on 06-12-2025 Platelet mean volume (Bld) [Entitic vol] 10.4 fL 6.2-12.0 [facility] Microscopic analysis of urin e for red blood cells (RBC)Ordered By: Maty Dial on 06-12-2025 Microscopic analysis of urine for red blood cells (RBC) 0 SEEN /hpf 0-5 [facility] Monocyte percentageOrdered B y: Maty Dial on 06-12-2025 Monocytes/100 WBC (Bld) 9.4 % 0-10 [facility] Mucus LM Ql (Urine sed)Order ed By: Maty Dial on 06-12-2025 Mucus Ql (Urine sed) 0 SEEN /hpf [facility] Neutrophil percentageOrdered By: Maty Dial on 06-12-2025 Neutrophils/100 WBC (Bld) 54.7 % 47-70 [facility] Nitrite Test strip Ql (U)Ord ered By: Maty Dial on 06-12-2025 Nitrite Ql (U) Negative Negative [facility] Nucleated red blood cell per centageOrdered By: Maty Dial on 06-12-2025 Nucleated RBC/100 WBC (Bld) [Ratio] 0 % 0-5 [facility] Platelet countOrdered By: Ignacio Dial on 06-12-2025 Platelets (Bld) [#/Vol] 243 10*3/uL 150-450 [facility] Potassium measurement (mass/ volume)Ordered By: Maty Dial on 06-12-2025 Potassium (Unsp spec) [Mass/Vol] 4.3 mmol/L 3.3-5.1 [facility] Protein Test strip Ql (U)Ord ered By: Maty Dial on 06-12-2025 Protein Ql (U) 15 mg/dl High Negative [facility] RBC Auto (Bld) [#/Vol]Ordere d By: Maty Dial on 06-12-2025 RBC (Bld) [#/Vol] 4.50 10*6/uL Low 4.6-6.2 [facility] Serum creatinine measurement (mass/volume)Ordered By: Maty Dial on 06-12-2025 Creatinine [Mass/Vol] 0.94 mg/dL 0.70-1.20 [facility] Serum glucose measurement (m ass/volume)Ordered By: Maty Dial on 06-12-2025 Glucose [Mass/Vol] 202 mg/dL High 70-99 [facility] Serum or plasma calcium walt urement (mass/volume)Ordered By: Maty Dial on 06-12-2025 Calcium [Mass/Vol] 9.1 mg/dL 7.6-11.0 [facility] Serum or plasma urea nitroge n measurement (mass/volume)Ordered By: Maty Dial on 06-12-2025 Urea nitrogen [Mass/Vol] 24 mg/dL High 4-19 [facility] Sodium levelOrdered By: Chidi Dial on 06-12-2025 Sodium [Moles/Vol] 139 mmol/L 133-145 [facility] Spine Cervical without Contr ason 06-12-2025 Spine Cervical without Contras Normal [facility] Squamous epithelial cells de tection in urine sediment by light microscopyOrdered By: Maty Dial on 06-12-2025 Epithelial cells.squamous LM Ql (Urine sed) 0-5 SEEN /hpf 0-5 [facility] Urinalysis, Completeon 06-12 WBC 0-5 SEEN Normal 0-5 [facility] Comment on above: Order Comment: CLEAN CATCH Performed By: #### L 400.0001 ####[facility] [address] [place], [address] EPI,SQUAMOUS 0-5 SEEN Normal 0-5 [facility] Comment on above: Order Comment: CLEAN CATCH Performed By: #### L 400.0001 ####[facility] [address] [place], [address] BACTERIA 0 SEEN Normal None Seen [facility] Comment on above: Order Comment: CLEAN CATCH Performed By: #### L 400.0001 ####[facility] [address] [place], [address] Mucus Ql (Urine sed) 0 SEEN Normal [facility] Comment on above: Order Comment: CLEAN CATCH Performed By: #### L 400.0001 ####[facility] [address] [place], [address] RBC 0 SEEN Normal 0-5 [facility] Comment on above: Order Comment: CLEAN CATCH Performed By: #### L 400.0001 ####[facility] [address] [place], [address] Urine clarityOrdered By: Michelle Dial on 06-12-2025 Clarity (U) Clear Clear [facility] Urine color determinationOrd ered By: Maty Dial on 06-12-2025 Color (U) Yellow Yellow [facility] Urine glucose detectionOrder ed By: Maty Dial on 06-12-2025 Glucose Ql (U) Normal mg/dl Normal [facility] Urine leukocyte esterase det ection by dipstickOrdered By: Maty Dial on 06-12-2025 Leukocyte esterase Test strip Ql (U) 25 /ul High Negative [facility] Urine pHOrdered By: Maty rolle on 06-12-2025 pH (U) 6.0 [pH] 5.0 - 8.0 [facility] Urine sediment bacteria coun t by microscopy (number/high power field)Ordered By: Maty Dial on 06-12-2025 Bacteria LM.HPF (Urine sed) [#/Area] 0 /[HPF] None Seen [facility] Urine specific gravity measu rementOrdered By: Maty Dial on 06-12-2025 Specific gravity (U) [Rel density] 1.025 1.002-1.03 0 [facility] Urine urobilinogen measureme ntOrdered By: Maty Dial on 06-12-2025 Urobilinogen Ql (U) Normal mg/dl Normal [facility] White blood cell (WBC) count Ordered By: Maty Dial on 06-12-2025 WBC (Bld) [#/Vol] 9.6 10*3/uL 4.4-11.0 [facility] White blood cell countOrdere d By: Maty Dial on 06-12-2025 White blood cell count 0-5 SEEN /hpf 0-5 [facility] Absolute lymphocyte countOrd ered By: Geo Reyes on 06-09-2025 Lymphocytes Auto (Unsp spec) [#/Vol] 3.83 10*3/uL 0.83-4.51 [facility] Absolute neutrophil countOrd ered By: Geo Reyes on 06-09-2025 Neutrophils (Bld) [#/Vol] 4.2 10*3/uL 2.0-7.7 [facility] Anion gap in Serum or Plasma Ordered By: Geo Reyes on 06-09-2025 Anion gap [Moles/Vol] 10 mmol/L 5- [facility] Automated lymphocyte count a s percentage of total leukocytesOrdered By: Geo Reyes on 06-09-2025 Lymphocytes/100 WBC Auto (Unsp spec) 40.9 % - [facility] BUN/creatinine ratioOrdered By: Geo Reyes on 06-09-2025 Urea nitrogen/Creatinine [Mass ratio] 21.8 mg/mg High 10- [facility] Basophil percentageOrdered B y: Geo Reyes on 06-09-2025 Basophils/100 WBC (Bld) 0.9 % 0-1 [facility] Bedside Glucoseon 06-09-2025 FINGERSTICK GLU 157 mg/dL High 74-106 [facility] Comment on above: Result Comment: GARY GEMENT OF PATIENT CARE PER NURSING PROTOCOL Performed By: #### L 501.080 ####[facility] [address] [facility] [address] FINGERSTICK GLU 149 mg/dL High 74-106 [facility] Comment on above: Result Comment: GARY GEMENT OF PATIENT CARE PER NURSING PROTOCOL Performed By: #### L 501.080 ####[facility] [address] [facility] [address] FINGERSTICK GLU 81 mg/dL Normal 74-106 [facility] Comment on above: Result Comment: GARY GEMENT OF PATIENT CARE PER NURSING PROTOCOL Performed By: #### L 501.080 ####[facility] [address] [facility] [address] Bilirubin, totalOrdered By: Geo Reyes on 06-09-2025 Bilirubin [Mass/Vol] 0.57 mg/dL 0.00-1.30 [facility] CBC W/Diff, Automatedon 05-21 Absolute Lymph 3.83 X10 3/uL Normal 0.83-4.51 [facility] Comment on above: Performed By: #### L 500.4050, L500.4100, L100.0100, L501.2300 ####[facility] [address] [place], [address] Absolute Neut 4.2 X10 3/uL Normal 2.0-7.7 [facility] Comment on above: Performed By: #### L 500.4050, L500.4100, L100.0100, L501.2300 ####[facility] [address] [place], [address] Basophils/100 WBC (Bld) 0.9 % Normal 0-1 [facility] Comment on above: Performed By: #### L 500.4050, L500.4100, L100.0100, L501.2300 ####[facility] [address] [place], [address] Eosinophils/100 WBC (Bld) 2.1 % Normal 0-5 [facility] Comment on above: Performed By: #### L 500.4050, L500.4100, L100.0100, L501.2300 ####[facility] [address] [place], [address] Erythrocyte distribution width (RBC) [Ratio] 12.9 % Normal 11.6-14.6 [facility] Comment on above: Performed By: #### L 500.4050, L500.4100, L100.0100, L501.2300 ####[facility] [address] [place], [address] Hematocrit (Bld) [Volume fraction] 39.9 % Low 40-54 [facility] Comment on above: Performed By: #### L 500.4050, L500.4100, L100.0100, L501.2300 ####[facility] [address] [place], [address] Hemoglobin (Bld) [Mass/Vol] 13.3 g/dL Normal 13.0-16.5 [facility] Comment on above: Performed By: #### L 500.4050, L500.4100, L100.0100, L501.2300 ####[facility] [address] [place], [address] IG% 0.300 Normal 0.0-0.9 [facility] Comment on above: Result Comment: IG% - Immature Granulocytes (promyelocytes, myelocytes andmetamyelocytes) > 1% indicates that a LEFT SHIFT is Present. Performed By: #### L 500.4050, L500.4100, L100.0100, L501.2300 ####[facility] [address] [place], [address] Lymphocytes/100 WBC (Bld) 40.9 % Normal 19-41 [facility] Comment on above: Performed By: #### L 500.4050, L500.4100, L100.0100, L501.2300 ####[facility] [address] [place], [address] MCH (RBC) [Entitic mass] 30.4 pg Normal 27.0-32.0 [facility] Comment on above: Performed By: #### L 500.4050, L500.4100, L100.0100, L501.2300 ####[facility] [address] [place], [address] MCHC (RBC) [Mass/Vol] 33.3 g/dL Normal 32-36 [facility] Comment on above: Performed By: #### L 500.4050, L500.4100, L100.0100, L501.2300 ####[facility] [address] [place], [address] MCV (RBC) [Entitic vol] 91.3 fL Normal 80-94 [facility] Comment on above: Performed By: #### L 500.4050, L500.4100, L100.0100, L501.2300 ####[facility] [address] [place], [address] Monocytes/100 WBC (Bld) 11.5 % High 0-10 [facility] Comment on above: Performed By: #### L 500.4050, L500.4100, L100.0100, L501.2300 ####[facility] [address] [place], [address] Neutrophils/100 WBC (Bld) 44.3 % Low 47-70 [facility] Comment on above: Performed By: #### L 500.4050, L500.4100, L100.0100, L501.2300 ####[facility] [address] [place], [address] Nucleated RBC (Bld) [#/Vol] 0 10*3/uL Normal 0-5 [facility] Comment on above: Performed By: #### L 500.4050, L500.4100, L100.0100, L501.2300 ####[facility] [address] [place], [address] Platelet mean volume (Bld) [Entitic vol] 10.8 fL Normal 6.2-12.0 [facility] Comment on above: Performed By: #### L 500.4050, L500.4100, L100.0100, L501.2300 ####[facility] [address] [place], [address] Platelets (Bld) [#/Vol] 243 10*3/uL Normal 150-450 [facility] Comment on above: Performed By: #### L 500.4050, L500.4100, L100.0100, L501.2300 ####[facility] [address] [place], [address] RBC (Bld) [#/Vol] 4.37 10*6/uL Low 4.6-6.2 [facility] Comment on above: Performed By: #### L 500.4050, L500.4100, L100.0100, L501.2300 ####[facility] [address] [place], [address] RDW SD 42.3 fl Normal 35.1-43.9 [facility] Comment on above: Performed By: #### L 500.4050, L500.4100, L100.0100, L501.2300 ####[facility] [address] [place], [address] WBC (Bld) [#/Vol] 9.4 10*3/uL Normal 4.4-11.0 [facility] Comment on above: Performed By: #### L 500.4050, L500.4100, L100.0100, L501.2300 ####[facility] [address] [place], [address] Calculated very low density lipoprotein (VLDL) cholesterol measurementOrdered By: Geo Reyes on 06-09-2025 Calculated very low density lipoprotein (VLDL) cholesterol measurement 15 mg/dL 5-40 [facility] Carbon dioxide, total [Moles /volume] in Central venous bloodOrdered By: Geo Reyes on 06-09-2025 CO2 [Moles/Vol] 23.9 mmol/L 21.0-32.0 [facility] Chloride assayOrdered By: Dov Reyes on 06-09-2025 Chloride [Moles/Vol] 108 mmol/L 98-108 [facility] Comprehensive Metabolic Prof ilon 06-09-2025 Albumin [Mass/Vol] 3.7 g/dL Normal 3.4-4.8 [facility] Comment on above: Performed By: #### L 500.4050, L500.4100, L100.0100, L501.2300 ####[facility] [address] [place], [address] Albumin/Globulin [Mass ratio] 1.6 {ratio} Normal 0.9-2.4 [facility] Comment on above: Performed By: #### L 500.4050, L500.4100, L100.0100, L501.2300 ####[facility] [address] [place], [address] ALK PHOS 76 U/L Normal 40-129 [facility] Comment on above: Performed By: #### L 500.4050, L500.4100, L100.0100, L501.2300 ####[facility] [address] [place], [address] ALT [Catalytic activity/Vol] U/L Normal <=46 [facility] Comment on above: Performed By: #### L 500.4050, L500.4100, L100.0100, L501.2300 ####[facility] [address] [place], [address] AST [Catalytic activity/Vol] 15 U/L Normal <=37 [facility] Comment on above: Performed By: #### L 500.4050, L500.4100, L100.0100, L501.2300 ####[facility] [address] [place], [address] Bilirubin [Mass/Vol] 0.57 mg/dL Normal 0.00-1.30 [facility] Comment on above: Performed By: #### L 500.4050, L500.4100, L100.0100, L501.2300 ####[facility] [address] [place], [address] BUN/CRE 21.8 RATIO High 10-20 [facility] Comment on above: Performed By: #### L 500.4050, L500.4100, L100.0100, L501.2300 ####[facility] [address] [place], [address] Calcium [Mass/Vol] 8.7 mg/dL Normal 7.6-11.0 [facility] Comment on above: Performed By: #### L 500.4050, L500.4100, L100.0100, L501.2300 ####[facility] [address] [place], [address] Chloride [Moles/Vol] 108 mmol/L Normal 98-108 [facility] Comment on above: Performed By: #### L 500.4050, L500.4100, L100.0100, L501.2300 ####[facility] [address] [place], [address] CO2 [Moles/Vol] 23.9 mmol/L Normal 21.0-32.0 [facility] Comment on above: Performed By: #### L 500.4050, L500.4100, L100.0100, L501.2300 ####[facility] [address] [place], [address] Creatinine [Mass/Vol] 0.77 mg/dL Normal 0.70-1.20 [facility] Comment on above: Performed By: #### L 500.4050, L500.4100, L100.0100, L501.2300 ####[facility] [address] [place], [address] ECRCL 92.13 ml/min Normal 50-250 [facility] Comment on above: Performed By: #### L 500.4050, L500.4100, L100.0100, L501.2300 ####[facility] [address] [place], [address] GAP 10 Normal 5-15 [facility] Comment on above: Performed By: #### L 500.4050, L500.4100, L100.0100, L501.2300 ####[facility] [address] [place], [address] GFR/1.73 sq M.predicted among non-blacks MDRD (S/P/Bld) [Vol rate/Area] 91 mL/min/{1.73_m2} Normal >60 [facility] Comment on above: Result Comment: mL/m in/1.73m2 CKD-EPI Creatinine Equation (2020) Performed By: #### L 500.4050, L500.4100, L100.0100, L501.2300 ####[facility] [address] [place], [address] Globulin (S) [Mass/Vol] 2.3 g/dL Normal 2.2-4.2 [facility] Comment on above: Performed By: #### L 500.4050, L500.4100, L100.0100, L501.2300 ####[facility] [address] [place], [address] Glucose [Mass/Vol] 67 mg/dL Low 70-99 [facility] Comment on above: Performed By: #### L 500.4050, L500.4100, L100.0100, L501.2300 ####[facility] [address] [place], [address] Potassium [Moles/Vol] 3.8 mmol/L Normal 3.3-5.1 [facility] Comment on above: Performed By: #### L 500.4050, L500.4100, L100.0100, L501.2300 ####[facility] [address] [place], [address] Sodium [Moles/Vol] 142 mmol/L Normal 133-145 [facility] Comment on above: Performed By: #### L 500.4050, L500.4100, L100.0100, L501.2300 ####[facility] [address] [place], [address] T PROT 5.9 g/dL Normal 5.9-8.4 [facility] Comment on above: Performed By: #### L 500.4050, L500.4100, L100.0100, L501.2300 ####[facility] [address] [place], [address] Urea nitrogen [Mass/Vol] 17 mg/dL Normal 4-19 [facility] Comment on above: Performed By: #### L 500.4050, L500.4100, L100.0100, L501.2300 ####[facility] [address] [place], [address] Discharge Instructionon - Discharge Instruction Normal [facility] Duplex ultrasound of carotid artery reportOrdered By: Guillermo Zavala on 06-09-2025 Study report [facility] [address] [place] [address] Carotid Duplex Ultrasound 06/09/25 0824 MR#: [id number] Acct: [id number] Name: LUIS ARMANDO GRIFFITH Rep #:[id number] : 1945 79 From: Guillermo Nicolas Attending Dr: Dr. Daphnie Narayanan MD Status: ADM SANDHYA Ordering Dr: Geo Garza DO Date: 06/08/25 Location: [facility] Sex: M C Admitted: 06/08/25 Reason For [...] the left vertebral artery. Procedure Carotid Duplex 71462. This is a Carotid Duplex examination using B-mode, color flow and specral Doppler. Exam performed portable in patient room. VL/Carotid Duplex Ultrasound Interpretation Summary Mild (<50%) stenosis right extracranial internal carotid. Mild (<50%) stenosis left extracranial internal carotid. Patent and antegrade vertebrals bilaterally. Ordering Physician: Geo Garza Referring Physician: Ja Cooley Performed By: Thuy Dong, GISELLA, RVT 06/09/25 1105 Date _ Guillermo Zavala MD CC: Dr. Geo Garza DO; Dr. Ja Cooley MD; Dr. Daphnie Narayanan MD ~ Date Dictated: 06/09/25823 Date Transcribed: 06/09/25 1105 Bicycle Inspector: Signed [facility] Work Phone: Eosinophil percentageOrdered By: Geo Reyes on 06-09-2025 Eosinophils/100 WBC (Bld) 2.1 % 0-5 [facility] Erythrocyte distribution wid th ratioOrdered By: Geo Reyes on 06-09-2025 Erythrocyte distribution width (RBC) [Ratio] 12.9 % 11.6-14.6 [facility] Erythrocyte distribution wid th standard deviationOrdered By: Geo Reyes on 06-09-2025 Erythrocyte distribution width (RBC) [Ratio] 42.3 fl 35.1-43.9 [facility] Folate [Mass/volume] in Seru m or PlasmaOrdered By: Geo Reyes on 06-09-2025 Folate [Mass/Vol] 11.40 ng/mL 4.60-34.80 [facility] Folates,Serum (Folic Acid)on 06-09-2025 FOLATES,SERUM 11.40 ng/mL Normal 4.60-34.80 [facility] Comment on above: Order Comment: N Performed By: #### L 501.9520, L501.5200, L505.5000, L506.0200 ####[facility] [address], [place], [id number] Glomerular filtration rate ( GFR) estimation/1.73 sq m using serum, plasma, or whole bOrdered By: Geo Reyes on 06-09-2025 GFR/1.73 sq M.predicted among non-blacks MDRD (S/P/Bld) [Vol rate/Area] 91 mL/min/{1.73_m2} >60 [facility] Comment on above: mL/min/1.73m2 CKD-EP I Creatinine Equation (2020) [facility] deOrdered By: Daphnie Narayanan on 06-09-2025 Glucose [Mass/Vol] 157 mg/dL High 74-106 [facility] Comment on above: MANAGEMENT OF PATIEN T CARE PER NURSING PROTOCOL Hematocrit Auto (Bld) [Volum e fraction]Ordered By: Geo Reyes on 06-09-2025 Hematocrit (Bld) [Volume fraction] 39.9 % Low 40-54 [facility] Hemoglobin measurementOrdere d By: Geo Reyes on 06-09-2025 Hemoglobin (Bld) [Mass/Vol] 13.3 g/dL 13.0-16.5 [facility] Immature granulocytes/100 WB C Auto (Bld)Ordered By: Geo Reyes on 06-09-2025 Immature granulocytes/100 WBC (Bld) 0.300 % 0.0-0.9 [facility] Comment on above: IG% - Immature Granu locytes (promyelocytes, myelocytes and metamyelocytes) > 1% indicates that a LEFT SHIFT is Present. L499.0043on 06-09-2025 Trop T High Sen 15 ng/L Normal <=22 [facility] Comment on above: Performed By: #### L 499.0043 ####[facility] [address] [place], [place], [address] LDL calc ser/plasOrdered By: Geo Reyes on 06-09-2025 Cholesterol in LDL [Mass/Vol] 47 mg/dL [facility] Comment on above: Wvitqtrxua=120-824 m g/dL & Higher Wgpc=253 mg/dL or greater Laboratory - Chemistry and C hemistry - challengeOrdered By: Geo Reyes on 06-09-2025 AST [Catalytic activity/Vol] 15 U/L <38 [facility] Lipid Profileon 06-09-2025 CHOL:HDL 2.24 Normal [facility] Comment on above: Performed By: #### L 500.4050, L500.4100, L100.0100, L501.2300 ####[facility] [address] [place], [place], [address] Cholesterol [Mass/Vol] 113 mg/dL Normal <=200 [facility] Comment on above: Result Comment: Chol esterol level, Desirable <200 mg/dLBorderline high cholesterol 200-239 mg/dLHigh cholesterol >=240 mg/dLRecommendations of the NCEP Adult Treatment Panel for thefollowing risk-cutoff thresholds for the [place] Americanpulation. Performed By: #### L 500.4050, L500.4100, L100.0100, L501.2300 ####[facility] [address] [place], [address] Cholesterol in HDL [Mass/Vol] 50 mg/dL Normal [facility] Comment on above: Result Comment: Makayla onal Cholesterol Education Program (NCEP) guidelines:<40 mg/dL: Low HDL-cholesterol (major risk factor for CHD)>= 60 mg/dL: High HDL-cholesterol (negative risk factor forCHD)HDL-cholesterol is affected by a number of factors, e.g.smoking, exercise, hormones, sex and age. Performed By: #### L 500.4050, L500.4100, L100.0100, L501.2300 ####[facility] [address] [place], [address] Cholesterol in LDL [Mass/Vol] 47 mg/dL Normal [facility] Comment on above: Result Comment: Bord kmzhrt=256-565 mg/dL Higher Bhtt=339 mg/dL or greater Performed By: #### L 500.4050, L500.4100, L100.0100, L501.2300 ####[facility] [address] [place], [address] Cholesterol in VLDL [Mass/Vol] 15 mg/dL Normal 5-40 [facility] Comment on above: Performed By: #### L 500.4050, L500.4100, L100.0100, L501.2300 ####[facility] [address] [place], [address] Triglyceride [Mass/Vol] 76 mg/dL Normal [facility] Comment on above: Result Comment: The drugs N-Acetylcysteine and Metamizole may falselydepress this assay.Normal range: <150 mg/dLBorderline High: 150-199 mg/dLHigh: 200-499 mg/dLVery High: >500 mg/dL Performed By: #### L 500.4050, L500.4100, L100.0100, L501.2300 ####[facility] [address] [place], [address] MCV (mean corpuscular volume ) determinationOrdered By: Geo Reyes on 06-09-2025 MCV (RBC) [Entitic vol] 91.3 fL 80-94 [facility] Mean corpuscular hemoglobin (MCH) determinationOrdered By: Geo Reyes on 06-09-2025 MCH (RBC) [Entitic mass] 30.4 pg 27.0-32.0 [facility] Mean corpuscular hemoglobin concentration (MCHC) determinationOrdered By: Geo Reyes on 06-09-2025 MCHC (RBC) [Mass/Vol] 33.3 g/dL 32-36 [facility] Mean platelet volume determi nationOrdered By: Geo Reyes on 06-09-2025 Platelet mean volume (Bld) [Entitic vol] 10.8 fL 6.2-12.0 [facility] Monocyte percentageOrdered B y: Geo Reyes on 06-09-2025 Monocytes/100 WBC (Bld) 11.5 % High 0-10 [facility] Neutrophil percentageOrdered By: Geo Reyes on 06-09-2025 Neutrophils/100 WBC (Bld) 44.3 % Low 47-70 [facility] No Panel InformationOrdered By: Geo Reyes on 06-09-2025 15 U/L <38 [facility] Nucleated red blood cell per centageOrdered By: Geo Reyes on 06-09-2025 Nucleated RBC/100 WBC (Bld) [Ratio] 0 % 0-5 [facility] Phosphoruson 06-09-2025 Phosphate [Mass/Vol] 3.8 mg/dL Normal 2.7-4.5 [facility] Comment on above: Performed By: #### L 500.4050, L500.4100, L100.0100, L501.2300 ####[facility] [address] [place], [address] Platelet countOrdered By: Dov Reyes on 06-09-2025 Platelets (Bld) [#/Vol] 243 10*3/uL 150-450 [facility] Potassium measurement (mass/ volume)Ordered By: Geo Reyes on 06-09-2025 Potassium (Unsp spec) [Mass/Vol] 3.8 mmol/L 3.3-5.1 [facility] RBC Auto (Bld) [#/Vol]Ordere d By: Geo Reyes on 06-09-2025 RBC (Bld) [#/Vol] 4.37 10*6/uL Low 4.6-6.2 [facility] Screening total cholesterol/ high density lipoprotein (HDL) cholesterol ratioOrdered By: Geo Reyes on 06-09-2025 Cholesterol.total/Cholest gris in HDL [Mass ratio] 2.24 {ratio} [facility] Serum creatinine measurement (mass/volume)Ordered By: Geo Reyes on 06-09-2025 Creatinine [Mass/Vol] 0.77 mg/dL 0.70-1.20 [facility] Serum globulin measurementOr dered By: Geo Reyes on 06-09-2025 Globulin (S) [Mass/Vol] 2.3 g/dL 2.2-4.2 [facility] Serum glucose measurement (m ass/volume)Ordered By: Geo Reyes on 06-09-2025 Glucose [Mass/Vol] 67 mg/dL Low 70-99 [facility] [place] Serum or plasma alanine max otransferase (ALT) measurementOrdered By: Geo Reyes on 06-09-2025 ALT [Catalytic activity/Vol] U/L <47 [facility] Serum or plasma albumin walt urement (mass/volume)Ordered By: Geo Reyes on 06-09-2025 Albumin [Mass/Vol] 3.7 g/dL 3.4-4.8 [facility] [place] Serum or plasma albumin/glob ulin mass ratioOrdered By: Geo Reyes on 06-09-2025 Albumin/Globulin [Mass ratio] 1.6 {ratio} 0.9-2.4 [facility] Serum or plasma alkaline sarah sphatase measurementOrdered By: Geo Reyes on 06-09-2025 ALP [Catalytic activity/Vol] 76 U/L 40-129 [facility] Serum or plasma calcium walt urement (mass/volume)Ordered By: Geo Reyes on 06-09-2025 Calcium [Mass/Vol] 8.7 mg/dL 7.6-11.0 [facility] [place] Serum or plasma cholesterol in HDL measurement (mass/volume)Ordered By: Geo Reyes on 06-09-2025 Cholesterol in HDL [Mass/Vol] 50 mg/dL >40 [facility] Comment on above: National Cholesterol Education Program (NCEP) guidelines:<40 mg/dL: Low HDL-cholesterol (major risk factor for CHD)>= 60 mg/dL: High HDL-cholesterol (negative risk factor for CHD)HDL-cholesterol is affected by a number of factors, e.g. smoking, exercise, hormones, sex and age. Serum or plasma cholesterol measurement (mass/volume)Ordered By: Geo Reyes on 06-09-2025 Cholesterol [Mass/Vol] 113 mg/dL <201 [facility] Comment on above: Cholesterol level, D esirable <200 mg/dLBorderline high cholesterol 200-239 mg/dLHigh cholesterol >=240 mg/dLRecommendations of the NCEP Adult Treatment Panel for the following risk-cutoff thresholds for the [place] population. Serum or plasma urea nitroge n measurement (mass/volume)Ordered By: Geo Reyes on 06-09-2025 Urea nitrogen [Mass/Vol] 17 mg/dL 4-19 [facility] Sodium levelOrdered By: Raman Reyes on 06-09-2025 Sodium [Moles/Vol] 142 mmol/L 133-145 [facility] [place] Total proteinOrdered By: Rick Reyes on 06-09-2025 Protein [Mass/Vol] 5.9 g/dL 5.9-8.4 [facility] Triglycerides measurementOrd ered By: Geo Reyes on 06-09-2025 Triglyceride [Mass/Vol] 76 mg/dL <199 [facility] Comment on above: The drugs N-Acetylcy steine and Metamizole may falsely depress this assay. Normal range: <150 mg/dLBorderline High: 150-199 mg/dLHigh: 200-499 mg/dLVery High: >500 mg/dL Vitamin B12on 06-09-2025 Cobalamin (Vitamin B12) [Mass/Vol] 230 pg/mL Normal 180-914 [facility] Comment on above: Performed By: #### L 503.0106 ####[facility] [address] [place], [place], [id number] White blood cell (WBC) count Ordered By: Geo Reyes on 06-09-2025 WBC (Bld) [#/Vol] 9.4 10*3/uL 4.4-11.0 [facility] 12 Lead EKGon 06-08-2025 12 Lead EKG Normal [facility] Absolute lymphocyte countOrd ered By: Joe Soto on 06-08-2025 Lymphocytes Auto (Unsp spec) [#/Vol] 3.30 10*3/uL 0.83-4.51 [facility] Absolute neutrophil countOrd ered By: Remus Soto on 06-08-2025 Neutrophils (Bld) [#/Vol] 4.8 10*3/uL 2.0-7.7 [facility] Alcohol, Blood (Medical)-Ser umon 06-08-2025 SERUM ETOH < 10.1 Normal <=10.0 [facility] Comment on above: Result Comment: This test is for medical purposes only. The legaldefinition of intoxication varies according to local law. Performed By: #### L 501.9100 ####[facility] [address] [place], [place], [id number] Amphetamine detection with 1 000 ng/mL as cutoffOrdered By: Geo Reyes on 06-08-2025 Amphetamines Screen method >1000 ng/mL Ql (U) Negative < 200 ng/mL [facility] Anion gap in Serum or Plasma Ordered By: Joe Soto on 06-08-2025 Anion gap [Moles/Vol] 12 mmol/L 5-15 [facility] Automated lymphocyte count a s percentage of total leukocytesOrdered By: Joe Soto on 06-08-2025 Lymphocytes/100 WBC Auto (Unsp spec) 36.0 % 19-41 [facility] BUN/creatinine ratioOrdered By: Joe Soto on 06-08-2025 Urea nitrogen/Creatinine [Mass ratio] 26.0 mg/mg High - [facility] Basic Metabolic Profile (BMP )on 06-08-2025 BUN/CRE 26.0 RATIO High 09-08 [facility] Comment on above: Order Comment: REDRA W. PREVIOUS SPECIMEN REJECTED DUE TOHEMOLYSIS. 06/08/251853 Bo Elias. Performed By: #### L 501.4021, L500.2500 ####[facility] [address] [place], [address] Calcium [Mass/Vol] 9.0 mg/dL Normal 7.6-11.0 [facility] [place] Comment on above: Order Comment: REDRA W. PREVIOUS SPECIMEN REJECTED DUE TOHEMOLYSIS. 06/08/251853 Bo Elias. Performed By: #### L 501.4021, L500.2500 ####[facility] [address] [place], [address] Chloride [Moles/Vol] 103 mmol/L Normal 98-108 [facility] Comment on above: Order Comment: REDRA W. PREVIOUS SPECIMEN REJECTED DUE TOHEMOLYSIS. 06/08/251853 Bo Elias. Performed By: #### L 501.4021, L500.2500 ####[facility] [address] [place], [address] CO2 [Moles/Vol] 24.5 mmol/L Normal 21.0-32.0 [facility] Comment on above: Order Comment: REDRA W. PREVIOUS SPECIMEN REJECTED DUE TOHEMOLYSIS. 06/08/251853 Bo Elias. Performed By: #### L 501.4021, L500.2500 ####[facility] [address] [place], [address] Creatinine [Mass/Vol] 0.85 mg/dL Normal 0.70-1.20 [facility] Comment on above: Order Comment: REDRA W. PREVIOUS SPECIMEN REJECTED DUE TOHEMOLYSIS. 06/08/251853 Bo Elias. Performed By: #### L 501.4021, L500.2500 ####[facility] [address] [place], [address] ECRCL 87.49 ml/min Normal 50-250 [facility] Comment on above: Order Comment: REDRA W. PREVIOUS SPECIMEN REJECTED DUE TOHEMOLYSIS. 06/08/251853 Bo Elias. Performed By: #### L 501.4021, L500.2500 ####[facility] [address] [place], [address] GAP 12 Normal 5-15 [facility] Comment on above: Order Comment: REDRA W. PREVIOUS SPECIMEN REJECTED DUE TOHEMOLYSIS. 06/08/251853 Bo Reyes Curt. Performed By: #### L 501.4021, L500.2500 ####[facility] [address] [place], [address] GFR/1.73 sq M.predicted among non-blacks MDRD (S/P/Bld) [Vol rate/Area] 88 mL/min/{1.73_m2} Normal >60 [facility] Comment on above: Order Comment: REDRA W. PREVIOUS SPECIMEN REJECTED DUE TOHEMOLYSIS. 06/08/251853 Bo Reyes Curt. Result Comment: mL/m in/1.73m2 CKD-EPI Creatinine Equation (2020) Performed By: #### L 501.4021, L500.2500 ####[facility] [address] [place], [address] Glucose [Mass/Vol] 224 mg/dL High 70-99 [facility] Comment on above: Order Comment: REDRA W. PREVIOUS SPECIMEN REJECTED DUE TOHEMOLYSIS. 06/08/251853 Bo Reyes Curt. Performed By: #### L 501.4021, L500.2500 ####[facility] [address] [place], [address] Potassium [Moles/Vol] 4.0 mmol/L Normal 3.3-5.1 [facility] Comment on above: Order Comment: REDRA W. PREVIOUS SPECIMEN REJECTED DUE TOHEMOLYSIS. 06/08/251853 Bo Elias. Performed By: #### L 501.4021, L500.2500 ####[facility] [address] [place], [address] Sodium [Moles/Vol] 139 mmol/L Normal 133-145 [facility] Comment on above: Order Comment: REDRA W. PREVIOUS SPECIMEN REJECTED DUE TOHEMOLYSIS. 06/08/251853 Bo Elias. Performed By: #### L 501.4021, L500.2500 ####[facility] [address] [place], [address] Urea nitrogen [Mass/Vol] 22 mg/dL High 03-08 [facility] Comment on above: Order Comment: REDRA W. PREVIOUS SPECIMEN REJECTED DUE TOHEMOLYSIS. 06/08/251853 Bo Elias. Performed By: #### L 501.4021, L500.2500 ####[facility] [address] [place], [address] BUN Normal 03-08 [facility] Comment on above: Result Comment: This specimen has been REJECTED due to Laboratory criteria:Hemolyzed.DAFNE (ED) has been notified of need of recollection.06/08/251852 Bo Reyes White Performed By: #### L 500.2500, L100.0100 ####[facility] [address] [place], [address] BUN/CRE Normal 09-08 [facility] Comment on above: Result Comment: This specimen has been REJECTED due to Laboratory criteria:Hemolyzed.DAFNE (ED) has been notified of need of recollection.06/08/251852 Bo Reyes White Performed By: #### L 500.2500, L100.0100 ####[facility] [address] [place], [address] Calcium Normal 7.6-11.0 [facility] Comment on above: Result Comment: This specimen has been REJECTED due to Laboratory criteria:Hemolyzed.DAFNE (ED) has been notified of need of recollection.06/08/251852 Bo L White Performed By: #### L 500.2500, L100.0100 ####[facility] [address] [place], [address] CL Normal 98-108 [facility] Comment on above: Result Comment: This specimen has been REJECTED due to Laboratory criteria:Hemolyzed.DAFNE (ED) has been notified of need of recollection.06/08/251852 Bo L White Performed By: #### L 500.2500, L100.0100 ####[facility] [address] [place], [address] CO2 Normal 21.0-32.0 [facility] Comment on above: Result Comment: This specimen has been REJECTED due to Laboratory criteria:Hemolyzed.DAFNE (ED) has been notified of need of recollection.06/08/251852 Bo L White Performed By: #### L 500.2500, L100.0100 ####[facility] [address] [place], [address] CREAT,SERUM Normal 0.70-1.20 [facility] Comment on above: Result Comment: This specimen has been REJECTED due to Laboratory criteria:Hemolyzed.DAFNE (ED) has been notified of need of recollection.06/08/251852 Bo L White Performed By: #### L 500.2500, L100.0100 ####[facility] [address] [place], [address] eGFR Normal >60 [facility] Comment on above: Result Comment: This specimen has been REJECTED due to Laboratory criteria:Hemolyzed.DAFNE (ED) has been notified of need of recollection.06/08/251852 Bo L White Performed By: #### L 500.2500, L100.0100 ####[facility] [address] [place], [address] GAP Normal 5-15 [facility] Comment on above: Result Comment: This specimen has been REJECTED due to Laboratory criteria:Hemolyzed.DAFNE (ED) has been notified of need of recollection.06/08/251852 Bo L White Performed By: #### L 500.2500, L100.0100 ####[facility] [address] [place], [address] GLU Normal 70-99 [facility] Comment on above: Result Comment: This specimen has been REJECTED due to Laboratory criteria:Hemolyzed.DAFNE (ED) has been notified of need of recollection.06/08/251852 Bo L White Performed By: #### L 500.2500, L100.0100 ####[facility] [address] [place], [address] Potassium Normal 3.3-5.1 [facility] Comment on above: Result Comment: This specimen has been REJECTED due to Laboratory criteria:Hemolyzed.DAFNE (ED) has been notified of need of recollection.06/08/251852 Bo L White Performed By: #### L 500.2500, L100.0100 ####[facility] [address] [place], [address] Basic Metabolic Profile (BMP) Normal 133-145 [facility] Comment on above: Result Comment: This specimen has been REJECTED due to Laboratory criteria:Hemolyzed.DAFNE (ED) has been notified of need of recollection.06/08/251852 Bo L White Performed By: #### L 500.2500, L100.0100 ####[facility] [address] [place], [address] Basophil percentageOrdered B y: Remus Ungur on 06-08-2025 Basophils/100 WBC (Bld) 0.9 % 0-1 [facility] Bilirubin Test strip Ql (U)O rdered By: Joe Raineydominguez on 06-08-2025 Bilirubin Ql (U) Negative Negative [facility] Brain/Head without Contrasto n 06-08-2025 Brain/Head without Contrast Normal [facility] CBC W/Diff, Automatedon 05-21 Absolute Lymph 3.30 X10 3/uL Normal 0.83-4.51 [facility] Comment on above: Performed By: #### L 500.2500, L100.0100 ####[facility] [address] [place], [address] Absolute Neut 4.8 X10 3/uL Normal 2.0-7.7 [facility] Comment on above: Performed By: #### L 500.2500, L100.0100 ####[facility] [address] [place], [address] Basophils/100 WBC (Bld) 0.9 % Normal 0-1 [facility] Comment on above: Performed By: #### L 500.2500, L100.0100 ####[facility] [address] [place], [address] Eosinophils/100 WBC (Bld) 1.9 % Normal 0-5 [facility] Comment on above: Performed By: #### L 500.2500, L100.0100 ####[facility] [address] [place], [address] Erythrocyte distribution width (RBC) [Ratio] 13.2 % Normal 11.6-14.6 [facility] Comment on above: Performed By: #### L 500.2500, L100.0100 ####[facility] [address] [place], [address] Hematocrit (Bld) [Volume fraction] 41.6 % Normal 40-54 [facility] Comment on above: Performed By: #### L 500.2500, L100.0100 ####[facility] [address] [place], [address] Hemoglobin (Bld) [Mass/Vol] 14.4 g/dL Normal 13.0-16.5 [facility] Comment on above: Performed By: #### L 500.2500, L100.0100 ####[facility] [address] [place], [address] IG% 0.800 Normal 0.0-0.9 [facility] Comment on above: Result Comment: IG% - Immature Granulocytes (promyelocytes, myelocytes andmetamyelocytes) > 1% indicates that a LEFT SHIFT is Present. Performed By: #### L 500.2500, L100.0100 ####[facility] [address] [place], [address] Lymphocytes/100 WBC (Bld) 36.0 % Normal 19-41 [facility] Comment on above: Performed By: #### L 500.2500, L100.0100 ####[facility] [address] [place], [address] MCH (RBC) [Entitic mass] 30.8 pg Normal 27.0-32.0 [facility] Comment on above: Performed By: #### L 500.2500, L100.0100 ####[facility] [address] [place], [address] MCHC (RBC) [Mass/Vol] 34.6 g/dL Normal 32-36 [facility] Comment on above: Performed By: #### L 500.2500, L100.0100 ####[facility] [address] [place], [address] MCV (RBC) [Entitic vol] 89.1 fL Normal 80-94 [facility] Comment on above: Performed By: #### L 500.2500, L100.0100 ####[facility] [address] [place], [address] Monocytes/100 WBC (Bld) 8.5 % Normal 0-10 [facility] Comment on above: Performed By: #### L 500.2500, L100.0100 ####[facility] [address] [place], [address] Neutrophils/100 WBC (Bld) 51.9 % Normal 47-70 [facility] Comment on above: Performed By: #### L 500.2500, L100.0100 ####[facility] [address] [place], [address] Nucleated RBC (Bld) [#/Vol] 0 10*3/uL Normal 0-5 [facility] Comment on above: Performed By: #### L 500.2500, L100.0100 ####[facility] [address] [place], [address] Platelet mean volume (Bld) [Entitic vol] 10.4 fL Normal 6.2-12.0 [facility] Comment on above: Performed By: #### L 500.2500, L100.0100 ####[facility] [address] [place], [address] Platelets (Bld) [#/Vol] 261 10*3/uL Normal 150-450 [facility] Comment on above: Performed By: #### L 500.2500, L100.0100 ####[facility] [address] [place], [address] RBC (Bld) [#/Vol] 4.67 10*6/uL Normal 4.6-6.2 [facility] Comment on above: Performed By: #### L 500.2500, L100.0100 ####[facility] [address] [place], [address] RDW SD 42.2 fl Normal 35.1-43.9 [facility] Comment on above: Performed By: #### L 500.2500, L100.0100 ####[facility] [address] [place], [address] WBC (Bld) [#/Vol] 9.2 10*3/uL Normal 4.4-11.0 [facility] Comment on above: Performed By: #### L 500.2500, L100.0100 ####[facility] [address] [place], [address] Carbon dioxide, total [Moles /volume] in Central venous bloodOrdered By: Joe Soto on 06-08-2025 CO2 [Moles/Vol] 24.5 mmol/L 21.0-32.0 [facility] Carotid Duplex Ultrasoundon 06-08-2025 Carotid Duplex Ultrasound Normal [facility] Chest 1 View (Portable)on Chest 1 View (Portable) Normal [facility] Chloride assayOrdered By: Darien Soto on 06-08-2025 Chloride [Moles/Vol] 103 mmol/L 98-108 [facility] Echo Complete W/ Contraston 06-08-2025 Echo Complete W/ Contrast Normal [facility] Emergency Department Summary on 06-08-2025 Emergency Department Summary Normal [facility] Eosinophil percentageOrdered By: Joe Soto on 06-08-2025 Eosinophils/100 WBC (Bld) 1.9 % 0-5 [facility] Erythrocyte distribution wid th ratioOrdered By: Joe Soto on 06-08-2025 Erythrocyte distribution width (RBC) [Ratio] 13.2 % 11.6-14.6 [facility] Erythrocyte distribution wid th standard deviationOrdered By: Joe Soto on 06-08-2025 Erythrocyte distribution width (RBC) [Ratio] 42.2 fl 35.1-43.9 [facility] Glomerular filtration rate ( GFR) estimation/1.73 sq m using serum, plasma, or whole bOrdered By: Joe Soto on 06-08-2025 GFR/1.73 sq M.predicted among non-blacks MDRD (S/P/Bld) [Vol rate/Area] 88 mL/min/{1.73_m2} >60 [facility] Comment on above: mL/min/1.73m2 CKD-EP I Creatinine Equation (2020) H AND P Exam - [facility] 06-08-2025 H&P Exam - Hospitalist Normal [facility] Hematocrit Auto (Bld) [Volum e fraction]Ordered By: Joe Soto on 06-08-2025 Hematocrit (Bld) [Volume fraction] 41.6 % 40-54 [facility] Hemoglobin measurementOrdere d By: Joe Soto on 06-08-2025 Hemoglobin (Bld) [Mass/Vol] 14.4 g/dL 13.0-16.5 [facility] Immature granulocytes/100 WB C Auto (Bld)Ordered By: [facility] on 06-08-2025 Immature granulocytes/100 WBC (Bld) 0.800 % 0.0-0.9 [facility] Comment on above: IG% - Immature Granu locytes (promyelocytes, myelocytes and metamyelocytes) > 1% indicates that a LEFT SHIFT is Present. Ketones Test strip Ql (U)Ord ered By: Joe Soto on 06-08-2025 Ketones Ql (U) 5 mg/dl High Negative [facility] L499.0042on 06-08-2025 Trop T High Sen 14 ng/L Normal <=22 [facility] Comment on above: Performed By: #### L 499.0042 ####[facility] [address] [place], [address] L501.4021on 06-08-2025 Trop T High Sen 17 ng/L Normal <=22 [facility] Comment on above: Order Comment: CR Navarro. PREVIOUS SPECIMEN REJECTED DUE TOHEMOLYSIS. 06/08/25 1854 Bo Elias. Performed By: #### L 501.4021, L500.2500 ####[facility] [address] [place], [address] MCV (mean corpuscular volume ) determinationOrdered By: Joe Soto on 06-08-2025 MCV (RBC) [Entitic vol] 89.1 fL 80-94 [facility] Magnesiumon 06-08-2025 Magnesium [Mass/Vol] 1.6 mg/dL Normal 1.5-2.2 [facility] Comment on above: Performed By: #### L 501.9520, L501.5200, L505.5000, L506.0200 ####[facility] [address] [place], [address] Magnesium measurement (mass/ volume)Ordered By: Geo Reyes on 06-08-2025 Magnesium (Unsp spec) [Mass/Vol] 1.6 mg/dL 1.5-2.2 [facility] Mean corpuscular hemoglobin (MCH) determinationOrdered By: Joe Soto on 06-08-2025 MCH (RBC) [Entitic mass] 30.8 pg 27.0-32.0 [facility] Mean corpuscular hemoglobin concentration (MCHC) determinationOrdered By: Joe Soto on 06-08-2025 MCHC (RBC) [Mass/Vol] 34.6 g/dL 32-36 [facility] Mean platelet volume determi nationOrdered By: Joe Soto on 06-08-2025 Platelet mean volume (Bld) [Entitic vol] 10.4 fL 6.2-12.0 [facility] Microscopic analysis of urin e for red blood cells (RBC)Ordered By: Joe Soto on 06-08-2025 Microscopic analysis of urine for red blood cells (RBC) 0-5 SEEN /hpf 0-5 [facility] Monocyte percentageOrdered B y: Joe Soto on 06-08-2025 Monocytes/100 WBC (Bld) 8.5 % 0-10 [facility] Mucus LM Ql (Urine sed)Order ed By: Joe Soto on 06-08-2025 Mucus Ql (Urine sed) 2+ /hpf [facility] Neutrophil percentageOrdered By: Joe Soto on 06-08-2025 Neutrophils/100 WBC (Bld) 51.9 % 47-70 [facility] Nitrite Test strip Ql (U)Ord ered By: Joe Soto on 06-08-2025 Nitrite Ql (U) Negative Negative [facility] No Panel InformationOrdered By: Geo Reyes on 06-08-2025 Urine Buprenorphine Qualitative Negative < 200 ng/mL [facility] Urine Oxycodone Screen Negative < 100 ng/mL [facility] Negative < 200 ng/mL [facility] Nucleated red blood cell per centageOrdered By: Joe Soto on 06-08-2025 Nucleated RBC/100 WBC (Bld) [Ratio] 0 % 0-5 [facility] Platelet countOrdered By: Darien Soto on 06-08-2025 Platelets (Bld) [#/Vol] 261 10*3/uL 150-450 [facility] Potassium measurement (mass/ volume)Ordered By: Joe Soto on 06-08-2025 Potassium (Unsp spec) [Mass/Vol] 4.0 mmol/L 3.3-5.1 [facility] Protein Test strip Ql (U)Ord ered By: Joe Soto on 06-08-2025 Protein Ql (U) 15 mg/dl High Negative [facility] Quantitative urine opiates m easurementOrdered By: Geo Reyes on 06-08-2025 Opiates Ql (U) Negative < 300 ng/mL [facility] RBC Auto (Bld) [#/Vol]Ordere d By: Joe Soto on 06-08-2025 RBC (Bld) [#/Vol] 4.67 10*6/uL 4.6-6.2 [facility] Screening urine fentanyl gabriele surementOrdered By: Geo Reyes on 06-08-2025 fentaNYL Screen Ql (U) Negative [facility] Serum creatinine measurement (mass/volume)Ordered By: Joe Soto on 06-08-2025 Creatinine [Mass/Vol] 0.85 mg/dL 0.70-1.20 [facility] Serum glucose measurement (m ass/volume)Ordered By: Joe Soto on 06-08-2025 Glucose [Mass/Vol] 224 mg/dL High 70-99 [facility] [place] Serum or plasma calcium walt urement (mass/volume)Ordered By: Joe Soto on 06-08-2025 Calcium [Mass/Vol] 9.0 mg/dL 7.6-11.0 [facility] [place] Serum or plasma ethanol walt urement (mass/volume)Ordered By: Geo Reyes on 06-08-2025 Ethanol [Mass/Vol] mg/dL <10.1 [facility] [place] Comment on above: This test is for med ical purposes only. The legal definition of intoxication varies according to local law. Serum or plasma urea nitroge n measurement (mass/volume)Ordered By: Joe Soto on 06-08-2025 Urea nitrogen [Mass/Vol] 22 mg/dL High 4-19 [facility] Sodium levelOrdered By: Robert Soto on 06-08-2025 Sodium [Moles/Vol] 139 mmol/L 133-145 [facility] [place] Spine Cervical without Contr ason 06-08-2025 Spine Cervical without Contras Normal [facility] Squamous epithelial cells de tection in urine sediment by light microscopyOrdered By: Joe Soto on 06-08-2025 Epithelial cells.squamous LM Ql (Urine sed) 0-5 SEEN /hpf 0-5 [facility] TSH DL <= 0.005 mIU/L QnOrde red By: Geo Reyes on 06-08-2025 TSH Qn 2.200 uIU/mL 0.300-4.20 0 [facility] Thyroid Stim Hormone (TSH)on 06-08-2025 TSH 2.200 uIU/mL Normal 0.300-4.20 0 [facility] Comment on above: Performed By: #### L 501.9520, L501.5200, L505.5000, L506.0200 ####[facility] [address] [place], [place], [id number] Troponin T.cardiac [Mass/vol ume] in Serum or Plasma by High sensitivity methodOrdered By: Joe Soto on 06-08-2025 Troponin T.cardiac High sensitivity method [Mass/Vol] 15 ng/L <22 [facility] Troponin T.cardiac High sensitivity method [Mass/Vol] 14 ng/L <22 [facility] Troponin T.cardiac High sensitivity method [Mass/Vol] 17 ng/L <22 [facility] Urinalysis, Completeon 06-08 BACTERIA RARE Normal None Seen [facility] Comment on above: Order Comment: CLEAN CATCH Performed By: #### L 400.0001 ####[facility] [address] [place], [address] EPI,SQUAMOUS 0-5 SEEN Normal 0-5 [facility] Comment on above: Order Comment: CLEAN CATCH Performed By: #### L 400.0001 ####[facility] [address] [place], [address] Mucus Ql (Urine sed) 2+ /hpf Normal [facility] Comment on above: Order Comment: CLEAN CATCH Performed By: #### L 400.0001 ####[facility] [address] [place], [address] RBC 0-5 SEEN Normal 0-5 [facility] Comment on above: Order Comment: CLEAN CATCH Performed By: #### L 400.0001 ####[facility] [address] [place], [address] WBC 0-5 SEEN Normal 0-5 [facility] Comment on above: Order Comment: CLEAN CATCH Performed By: #### L 400.0001 ####[facility] [address] [place], [address] Urine Drug Screen (VISTA)on 06-08-2025 AMPHETAMINES Negative Normal <1000 ng/mL [facility] Comment on above: Order Comment: U Performed By: #### L 501.9520, L501.5200, L505.5000, L506.0200 ####[facility] [address] [place], [address] BARBITIURATES Negative Normal < 200 ng/mL [facility] Comment on above: Order Comment: U Performed By: #### L 501.9520, L501.5200, L505.5000, L506.0200 ####[facility] [address] [place], [address] BENZODIAZIPINE Negative Normal < 200 ng/mL [facility] Comment on above: Order Comment: U Performed By: #### L 501.9520, L501.5200, L505.5000, L506.0200 ####[facility] [address] [place], [address] BUP Ur Drug Scr Negative Normal < 200 ng/mL [facility] Comment on above: Order Comment: U Performed By: #### L 501.9520, L501.5200, L505.5000, L506.0200 ####[facility] [address] [place], [address] COCAINE Negative Normal < 300 ng/mL [facility] Comment on above: Order Comment: U Performed By: #### L 501.9520, L501.5200, L505.5000, L506.0200 ####[facility] [address] [place], [address] Fentanyl Negative Normal [facility] Comment on above: Order Comment: U Performed By: #### L 501.9520, L501.5200, L505.5000, L506.0200 ####[facility] [address] [place], [address] METHADONE Negative Normal < 300 ng/mL [facility] Comment on above: Order Comment: U Performed By: #### L 501.9520, L501.5200, L505.5000, L506.0200 ####[facility] [address] [place], [address] OPIATES Negative Normal < 300 ng/mL [facility] Comment on above: Order Comment: U Performed By: #### L 501.9520, L501.5200, L505.5000, L506.0200 ####[facility] [address] [place], [address] OXYCODONE Negative Normal < 100 ng/mL [facility] Comment on above: Order Comment: U Performed By: #### L 501.9520, L501.5200, L505.5000, L506.0200 ####[facility] [address] [place], [address] PCP Negative Normal < 25 ng/mL [facility] Comment on above: Order Comment: U Performed By: #### L 501.9520, L501.5200, L505.5000, L506.0200 ####[facility] [address] [place], [address] THC Negative Normal < 50 ng/mL [facility] Comment on above: Order Comment: U Performed By: #### L 501.9520, L501.5200, L505.5000, L506.0200 ####[facility] [address] [place], [address] Urine benzodiazepine levelOr dered By: Geo Reyes on 06-08-2025 Benzodiazepines Ql (U) Negative < 200 ng/mL [facility] Urine clarityOrdered By: Yulisa Soto on 06-08-2025 Clarity (U) Clear Clear [facility] Urine cocaine levelOrdered B y: Geo Reyes on 06-08-2025 Cocaine Ql (U) Negative < 300 ng/mL [facility] Urine color determinationOrd ered By: Joe Soto on 06-08-2025 Color (U) Yellow Yellow [facility] Urine bszon-2-seryxhfitbaoks abinol (THC) measurementOrdered By: Geo Reyes on 06-08-2025 Cannabinoids Screen Ql (U) Negative < 50 ng/mL [facility] Urine glucose detectionOrder ed By: Joe Soto on 06-08-2025 Glucose Ql (U) 50 mg/dl High Normal [facility] Urine leukocyte esterase det ection by dipstickOrdered By: Joe Soto on 06-08-2025 Leukocyte esterase Test strip Ql (U) Negative Negative [facility] Urine pHOrdered By: Joe faust on 06-08-2025 pH (U) 6.0 [pH] 5.0 - 8.0 [facility] Urine phencyclidine (PCP) de tectionOrdered By: Geo Reyes on 06-08-2025 Phencyclidine Ql (U) Negative < 25 ng/mL [facility] Urine sediment bacteria coun t by microscopy (number/high power field)Ordered By: Joe Soto on 06-08-2025 Bacteria LM.HPF (Urine sed) [#/Area] RARE /hpf None Seen [facility] Urine specific gravity measu rementOrdered By: Joe Soto on 06-08-2025 Specific gravity (U) [Rel density] 1.020 1.002-1.03 0 [facility] Urine urobilinogen measureme ntOrdered By: Joe Soto on 06-08-2025 Urobilinogen Ql (U) 1 mg/dl High Normal [facility] Vitamin B12 ser/plasOrdered By: Geo Reyes on 06-08-2025 Cobalamin (Vitamin B12) [Mass/Vol] 230 pg/mL 180-914 [facility] White blood cell (WBC) count Ordered By: Joe Soto on 06-08-2025 WBC (Bld) [#/Vol] 9.2 10*3/uL 4.4-11.0 [facility] [place] White blood cell countOrdere d By: Joe Soto on 06-08-2025 White blood cell count 0-5 SEEN /hpf 0-5 [facility] Folates, RBCon 05-28-2025 Fol.,Hemolysate 498.0 ng/mL Normal Not Estab. [facility] Comment on above: Order Comment: LUPE Deleon SEND RESULTS OF B12 AND FOLATES TO Performed By: #### L 3100.1725, L503.0106, L501.9985, L501.4100, L500.2500, L501.4405 ####[facility] [address] [facility] [place], [place], [id number] Folate, RBC 1087 ng/mL Normal >498 [facility] Comment on above: Order Comment: LUPE Deleon SEND RESULTS OF B12 AND FOLATES TO Result Comment: Perf ormed at: - [facility] [address] [id number] Director: Vj Garcia PhD, Phone: [phone] Performed By: #### L 3100.1725, L503.0106, L501.9985, L501.4100, L500.2500, L501.4405 ####[facility] [address] [place], [address] Hematocrit (Bld) [Volume fraction] 45.8 % Normal 37.5-51.0 [facility] Comment on above: Order Comment: LUPE Deleon SEND RESULTS OF B12 AND FOLATES TO Performed By: #### L 3100.1725, L503.0106, L501.9985, L501.4100, L500.2500, L501.4405 ####[facility] [address] [place], [address] AST(SGOT)on 05-26-2025 AST [Catalytic activity/Vol] 14 U/L Normal <=37 [facility] Comment on above: Order Comment: LUPE Deleon SEND RESULTS OF B12 AND FOLATES TO Performed By: #### L 3100.1725, L503.0106, L501.9985, L501.4100, L500.2500, L501.4405 ####[facility] [address] [place], [address] Alanine Aminotransferas (SGP T)on 05-26-2025 ALT [Catalytic activity/Vol] 6 U/L Normal <=46 [facility] Comment on above: Order Comment: LUPE SEND RESULTS OF B12 AND FOLATES TO Performed By: #### L 3100.1725, L503.0106, L501.9985, L501.4100, L500.2500, L501.4405 ####[facility] [address] [facility] [address] [place], [place], [id number] Anion gap in Serum or Plasma Ordered By: Natasha Gregory on 05-26-2025 Anion gap [Moles/Vol] 12 mmol/L 5-15 [facility] BUN/creatinine ratioOrdered By: Natasha Gregory on 07-07-2025 Urea nitrogen/Creatinine [Mass ratio] 19.8 mg/mg 10- [facility] Basic Metabolic Profile (BMP )on 05-26-2025 BUN/CRE 19.8 RATIO Normal - [facility] Comment on above: Order Comment: LUPE Deleon SEND RESULTS OF B12 AND FOLATES TO Performed By: #### L 3100.1725, L503.0106, L501.9985, L501.4100, L500.2500, L501.4405 ####[facility] [address] [place], [address] Calcium [Mass/Vol] 9.2 mg/dL Normal 7.6-11.0 [facility] [place] Comment on above: Order Comment: LUPE Deleon SEND RESULTS OF B12 AND FOLATES TO Performed By: #### L 3100.1725, L503.0106, L501.9985, L501.4100, L500.2500, L501.4405 ####[facility] [address] [place], [address] Chloride [Moles/Vol] 104 mmol/L Normal 98-108 [facility] Comment on above: Order Comment: LUPE Deleon SEND RESULTS OF B12 AND FOLATES TO Performed By: #### L 3100.1725, L503.0106, L501.9985, L501.4100, L500.2500, L501.4405 ####[facility] [address] [place], [address] CO2 [Moles/Vol] 25.8 mmol/L Normal 21.0-32.0 [facility] Comment on above: Order Comment: LUPE Deleon SEND RESULTS OF B12 AND FOLATES TO Performed By: #### L 3100.1725, L503.0106, L501.9985, L501.4100, L500.2500, L501.4405 ####[facility] [address] [place], [address] Creatinine [Mass/Vol] 0.91 mg/dL Normal 0.70-1.20 [facility] Comment on above: Order Comment: LUPE Deleon SEND RESULTS OF B12 AND FOLATES TO Performed By: #### L 3100.1725, L503.0106, L501.9985, L501.4100, L500.2500, L501.4405 ####[facility] [address] [place], [address] GAP 12 Normal 5-15 [facility] Comment on above: Order Comment: LUPE Deleon SEND RESULTS OF B12 AND FOLATES TO Performed By: #### L 3100.1725, L503.0106, L501.9985, L501.4100, L500.2500, L501.4405 ####[facility] [address] [place], [place], [id number] GFR/1.73 sq M.predicted among non-blacks MDRD (S/P/Bld) [Vol rate/Area] 86 mL/min/{1.73_m2} Normal >60 [facility] Comment on above: Order Comment: LUPE Deleon SEND RESULTS OF B12 AND FOLATES TO Result Comment: mL/m in/1.73m2 CKD-EPI Creatinine Equation (2020) Performed By: #### L 3100.1725, L503.0106, L501.9985, L501.4100, L500.2500, L501.4405 ####[facility] [address] [place], [address] Glucose [Mass/Vol] 52 mg/dL Low 70-99 [facility] [place] Comment on above: Order Comment: LUPE Deleon SEND RESULTS OF B12 AND FOLATES TO Performed By: #### L 3100.1725, L503.0106, L501.9985, L501.4100, L500.2500, L501.4405 ####[facility] [address] [place], [place], [id number] Potassium [Moles/Vol] 3.9 mmol/L Normal 3.3-5.1 [facility] Comment on above: Order Comment: LUPE Deleon SEND RESULTS OF B12 AND FOLATES TO Performed By: #### L 3100.1725, L503.0106, L501.9985, L501.4100, L500.2500, L501.4405 ####[facility] [address] [place], [place], [address] Sodium [Moles/Vol] 142 mmol/L Normal 133-145 [facility] [place] Comment on above: Order Comment: LUPE Deleon SEND RESULTS OF B12 AND FOLATES TO Performed By: #### L 3100.1725, L503.0106, L501.9985, L501.4100, L500.2500, L501.4405 ####[facility] [address] [place], [place], [address] Urea nitrogen [Mass/Vol] 18 mg/dL Normal 4-19 [facility] Comment on above: Order Comment: LUPE Deleon SEND RESULTS OF B12 AND FOLATES TO Performed By: #### L 3100.1725, L503.0106, L501.9985, L501.4100, L500.2500, L501.4405 ####[facility] [address] [place], [place], [address] Carbon dioxide, total [Moles /volume] in Central venous bloodOrdered By: Natasha Gregory on 05-26-2025 CO2 [Moles/Vol] 25.8 mmol/L 21.0-32.0 [facility] Chloride assayOrdered By: Terri Gregory on 05-26-2025 Chloride [Moles/Vol] 104 mmol/L 98-108 [facility] Erythrocyte folate measureme nt with hematocritOrdered By: Natasha Gregory on 05-26-2025 Hematocrit (Bld) [Volume fraction] 45.8 % 37.5-51.0 [facility] Glomerular filtration rate ( GFR) estimation/1.73 sq m using serum, plasma, or whole bOrdered By: Natasha Gregory on 05-26-2025 GFR/1.73 sq M.predicted among non-blacks MDRD (S/P/Bld) [Vol rate/Area] 86 mL/min/{1.73_m2} >60 [facility] Comment on above: mL/min/1.73m2 CKD-EP I Creatinine Equation (2020) Hemoglobin A1con 05-26-2025 HbA1c (Bld) [Mass fraction] 6.6 % High <=5.6 [facility] Comment on above: Order Comment: LUPE Deleon SEND RESULTS OF B12 AND FOLATES TO Result Comment: Norm al < 5.7 % Prediabetic 5.7 - 6.4 % Diabetic >or= 6.5 % Please note range changes. Performed By: #### L 3100.1725, L503.0106, L501.9985, L501.4100, L500.2500, L501.4405 ####[facility] [address] [place], [address] Hemoglobin A1c percentageOrd ered By: Natasha Gregory on 05-26-2025 HbA1c (Bld) [Mass fraction] 6.6 % High <5.7 [facility] Comment on above: Normal < 5.7 % Predi abetic 5.7 - 6.4 % Diabetic >or= 6.5 % Please note range changes. Laboratory - Chemistry and C hemistry - challengeOrdered By: Natasha Gregory on 05-26-2025 AST [Catalytic activity/Vol] 14 U/L <38 [facility] No Panel InformationOrdered By: Natasha Gregory on 05-26-2025 14 U/L <38 [facility] Potassium measurement (mass/ volume)Ordered By: Natasha Gregory on 05-26-2025 Potassium (Unsp spec) [Mass/Vol] 3.9 mmol/L 3.3-5.1 [facility] Serum creatinine measurement (mass/volume)Ordered By: Natasha Gregory on 05-26-2025 Creatinine [Mass/Vol] 0.91 mg/dL 0.70-1.20 [facility] Serum glucose measurement (m ass/volume)Ordered By: Natasha Gregory on 05-26-2025 Glucose [Mass/Vol] 52 mg/dL Low 70-99 [facility] [place] Serum or plasma alanine max otransferase (ALT) measurementOrdered By: Natasha Gregory on 05-26-2025 ALT [Catalytic activity/Vol] 6 U/L <47 [facility] Serum or plasma calcium walt urement (mass/volume)Ordered By: Natasha Gregory on 05-26-2025 Calcium [Mass/Vol] 9.2 mg/dL 7.6-11.0 [facility] [place] Serum or plasma urea nitroge n measurement (mass/volume)Ordered By: Natasha Gregory on 05-26-2025 Urea nitrogen [Mass/Vol] 18 mg/dL 4-19 [facility] Sodium levelOrdered By: Josefina Gregory on 05-26-2025 Sodium [Moles/Vol] 142 mmol/L 133-145 [facility] [place] Vitamin B12on 05-26-2025 Cobalamin (Vitamin B12) [Mass/Vol] 287 pg/mL Normal 180-914 [facility] Comment on above: Order Comment: LUPE Deleon SEND RESULTS OF B12 AND FOLATES TO Performed By: #### L 3100.1725, L503.0106, L501.9985, L501.4100, L500.2500, L501.4405 ####[facility] [address] [place], [place], [id number] Vitamin B12 ser/plasOrdered By: Natasha Gregory on 05-26-2025 Cobalamin (Vitamin B12) [Mass/Vol] 287 pg/mL 180-914 [facility] D/C Summary- SPon 05-19-2025 D/C Summary- SP Normal [facility] Bedside Glucoseon 05-11-2025 FINGERSTICK GLU 97 mg/dL Normal 74-106 [facility] Comment on above: Result Comment: GARY REYES OF PATIENT CARE PER NURSING PROTOCOL Performed By: #### L 501.080 ####[facility] [address] [place], [address] Emergency Department Summary on 05-11-2025 Emergency Department Summary Normal [facility]dered By: Dano Minor on 05-11-2025 Glucose [Mass/Vol] 97 mg/dL 74-106 [facility] [place] Comment on above: MANAGEMENT OF PATIEN T CARE PER NURSING PROTOCOL Modified Barium Swallow Stud yon 05-09-2025 Modified Barium Swallow Study Normal [facility] Microalb:Creat Ratio,Random URon 05-08-2025 MALB:CREAT 8.8 mg/g CRE Normal [facility] Comment on above: Result Comment: AMENDED REPORT 05/08/25 0851 MALB:CREAT previously reported as: 87.7 mg/g CRE Performed By: #### L 501.4405, L501.9985, L502.0250, L501.4100, L500.2500 ####[facility] [address] [place], [address] CT MAXILLOFACIAL WO IV CONTR Princess 04-13-2025 CT MAXILLOFACIAL WO IV CONTRAST Patient Name: LUIS ARMANDO GRIFFITH : 1945 [facility]#: [id number] Exam Date/Time: 04/13/2025 21:07 Procedure: CT MAXILLOFACIAL [...] lac to forehead above left eye Normal [facility] CT Maxillofacial region WO c [facility] 04-13-2025 1. Bilateral nasal bone fractures. 2. Left frontal scalp laceration with contusion. Report Dictated on Electronically Signed By: Maine Briones MD Electronically Signed Date/Time: 04/13/2025 9:21 PM EDT [facility] Patient Name: LUIS ARMANDO GRIFFITH : 1945 [id number] Exam Date/Time: 04/13/2025 21:07 Procedure: CT MAXILLOFACIAL [...] airway is patent. The epiglottis is normal. [facility] Maine Briones MD - 04/13/2025 Patient Name: LUIS ARMANDO GRIFFITH : 1945 [facility]#: [id number] Exam Date/Time: 04/13/2025 21:07 Procedure: CT MAXILLOFACIAL [...] Electronically Signed Date/Time: 04/13/2025 9:21 PM EDT [facility] Luminate Radiology Study observation (narrative) [facility] Luminate CT Maxillofacial region WO c ontrastOrdered By: Maine Briones on 04-13-2025 [employer] Work Phone: ED Nursing Noteon 04-13-2025 ED Nursing Note Pt presents to ED vi [facility] from [facility] for c/o left frontal head lac after losing footing and falling onto face on the ground. Pt has hx of parkinson's. Abrasion noted to forehead, small lac noted to bridge of nose as well as a large lac to forehead above left eye Normal [facility] ED Provider Noteon ED Provider Note [...] [facility] for Mud[facility] CT demonstrating bilateral nasal bone fractures. The [...] initial encounter Medications lidocaine-EPINEPHrine (Xylocaine W/EPI) 1 %-1:117036 injection 10 mL (has no administration in [...] Consent obtained: Verbal Consent given by: Patient Morrice protocol: Imaging studies available: yes Patient identi (more content not included)... Normal [facility] No Panel Informationon 04-13 Chetan Powell MD 04/13/2025 10:22 PM Laceration Repair Performed by: Chetan Powell MD Authorized by: Chetan Powell MD Consent: Consent obtained: Verbal Consent given by: Patient Morrice protocol: Imaging studies available: yes Patient identity [...] Dressing: Open (no dressing) Procedure completion: Tolerated [facility] Brain/Head without Contrasto n 04-09-2025 Brain/Head without Contrast Normal [facility] Emergency Department Summary on 04-09-2025 Emergency Department Summary Normal [facility] Spine Cervical without Contr ason 04-09-2025 Spine Cervical without Contras Normal [facility] Anion gap in Serum or Plasma Ordered By: Ja Cooley on 04-03-2025 Anion gap [Moles/Vol] 11 mmol/L 04-03 [facility] BUN/creatinine ratioOrdered By: Ja Cooley on 04-03-2025 Urea nitrogen/Creatinine [Mass ratio] 20.8 mg/mg High 09-08 [facility] Bilirubin, totalOrdered By: Ja Cooley on 04-03-2025 Bilirubin [Mass/Vol] 0.52 mg/dL 0.00-1.30 [facility] Calculated very low density lipoprotein (VLDL) cholesterol measurementOrdered By: Ja Cooley on 04-03-2025 Calculated very low density lipoprotein (VLDL) cholesterol measurement 27 mg/dL 5-40 [facility] Carbon dioxide, total [Moles /volume] in Central venous bloodOrdered By: Ja Cooley on 04-03-2025 CO2 [Moles/Vol] 26.4 mmol/L 21.0-32.0 [facility] Chloride assayOrdered By: Rimma Cooley on 04-03-2025 Chloride [Moles/Vol] 104 mmol/L 98-108 [facility] Comprehensive Metabolic Prof ilon 04-03-2025 Albumin [Mass/Vol] 3.9 g/dL Normal 3.4-4.8 [facility] [place] Comment on above: Order Comment: Order Date: 03/13/25Order Info: [id number] - CMPOrder Info: [id number] - LIPID Performed By: #### L 500.4050 ####[facility] [address] [place], [address] Albumin/Globulin [Mass ratio] 1.4 {ratio} Normal 0.9-2.4 [facility] Comment on above: Order Comment: Order Date: 03/13/25Order Info: [id number] - CMPOrder Info: [id number] - LIPID Performed By: #### L 500.4050 ####[facility] [address] [place], [address] ALK PHOS 79 U/L Normal 40-129 [facility] Comment on above: Order Comment: Order Date: 03/13/25Order Info: [id number] - CMPOrder Info: [id number] - LIPID Performed By: #### L 500.4050 ####[facility] [address] [place], [address] ALT [Catalytic activity/Vol] 5 U/L Normal <=46 [facility] Comment on above: Order Comment: Order Date: 03/13/25Order Info: [id number] - CMPOrder Info: [id number] - LIPID Performed By: #### L 500.4050 ####[facility] [address] [place], [address] AST [Catalytic activity/Vol] 17 U/L Normal <=37 [facility] Comment on above: Order Comment: Order Date: 03/13/25Order Info: [id number] - CMPOrder Info: [id number] - LIPID Performed By: #### L 500.4050 ####[facility] [address] [place], [address] Bilirubin [Mass/Vol] 0.52 mg/dL Normal 0.00-1.30 [facility] Comment on above: Order Comment: Order Date: 03/13/25Order Info: [id number] - CMPOrder Info: [id number] - LIPID Performed By: #### L 500.4050 ####[facility] [address] [place], [address] BUN/CRE 20.8 RATIO High 10-20 [facility] Comment on above: Order Comment: Order Date: 03/13/25Order Info: [id number] - CMPOrder Info: [id number] - LIPID Performed By: #### L 500.4050 ####[facility] [address] [place], [address] Calcium [Mass/Vol] 9.2 mg/dL Normal 7.6-11.0 [facility] [place] Comment on above: Order Comment: Order Date: 03/13/25Order Info: [id number] - CMPOrder Info: [id number] - LIPID Performed By: #### L 500.4050 ####[facility] [address] [place], [address] Chloride [Moles/Vol] 104 mmol/L Normal 98-108 [facility] Comment on above: Order Comment: Order Date: 03/13/25Order Info: [id number] - CMPOrder Info: [id number] - LIPID Performed By: #### L 500.4050 ####[facility] [address] [place], [address] CO2 [Moles/Vol] 26.4 mmol/L Normal 21.0-32.0 [facility] Comment on above: Order Comment: Order Date: 03/13/25Order Info: [id number] - CMPOrder Info: [id number] - LIPID Performed By: #### L 500.4050 ####[facility] [address] [place], [address] Creatinine [Mass/Vol] 0.78 mg/dL Normal 0.70-1.20 [facility] Comment on above: Order Comment: Order Date: 03/13/25Order Info: [id number]- - CMPOrder Info: [id number] - LIPID Performed By: #### L 500.4050 ####[facility] [address] [place], [address] GAP 11 Normal 5-15 [facility] Comment on above: Order Comment: Order Date: 03/13/25Order Info: [id number]- - CMPOrder Info: [id number] - LIPID Performed By: #### L 500.4050 ####[facility] [address] [place], [address] GFR/1.73 sq M.predicted among non-blacks MDRD (S/P/Bld) [Vol rate/Area] 90 mL/min/{1.73_m2} Normal >60 [facility] Comment on above: Order Comment: Order Date: 03/13/25Order Info: [id number]- - CMPOrder Info: [id number] - LIPID Result Comment: mL/m in/1.73m2 CKD-EPI Creatinine Equation (2020) Performed By: #### L 500.4050 ####[facility] [address] [place], [address] Globulin (S) [Mass/Vol] 2.8 g/dL Normal 2.2-4.2 [facility] Comment on above: Order Comment: Order Date: 03/13/25Order Info: [id number]- - CMPOrder Info: [id number] - LIPID Performed By: #### L 500.4050 ####[facility] [address] [place], [address] Glucose [Mass/Vol] 109 mg/dL High 70-99 [facility] Comment on above: Order Comment: Order Date: 03/13/25Order Info: [id number] - CMPOrder Info: [id number] - LIPID Performed By: #### L 500.4050 ####[facility] [address] [place], [address] Potassium [Moles/Vol] 3.9 mmol/L Normal 3.3-5.1 [facility] Comment on above: Order Comment: Order Date: 03/13/25Order Info: [id number] - CMPOrder Info: [id number] - LIPID Performed By: #### L 500.4050 ####[facility] [address] [place], [address] Sodium [Moles/Vol] 142 mmol/L Normal 133-145 [facility] Comment on above: Order Comment: Order Date: 03/13/25Order Info: [id number] - CMPOrder Info: [id number] - LIPID Performed By: #### L 500.4050 ####[facility] [address] [place], [address] T PROT 6.6 g/dL Normal 5.9-8.4 [facility] Comment on above: Order Comment: Order Date: 03/13/25Order Info: [id number] - CMPOrder Info: [id number] - LIPID Performed By: #### L 500.4050 ####[facility] [address] [place], [address] Urea nitrogen [Mass/Vol] 16 mg/dL Normal 4-19 [facility] Comment on above: Order Comment: Order Date: 03/13/25Order Info: [id number] - CMPOrder Info: [id number] - LIPID Performed By: #### L 500.3635 ####[facility] [address] [place], [place], [address] Glomerular filtration rate ( GFR) estimation/1.73 sq m using serum, plasma, or whole bOrdered By: Ja Cooley on 04-03-2025 GFR/1.73 sq M.predicted among non-blacks MDRD (S/P/Bld) [Vol rate/Area] 90 mL/min/{1.73_m2} >60 [facility] Comment on above: mL/min/1.73m2 CKD-EP I Creatinine Equation (2020) LDL calc ser/plasOrdered By: Ja Cooley on 04-03-2025 Cholesterol in LDL [Mass/Vol] 47 mg/dL [facility] Comment on above: Rmbitjkxiq=560-685 m g/dL & Higher Gwwl=318 mg/dL or greater Laboratory - Chemistry and C hemistry - challengeOrdered By: Ja Cooley on 04-03-2025 AST [Catalytic activity/Vol] 17 U/L <38 [facility] Lipid Profileon 04-03-2025 CHOL:HDL 2.63 Normal [facility] Comment on above: Order Comment: Order Date: 03/13/25Order Info: [id number] - CMPOrder Info: [id number] - LIPID Performed By: #### L 500.4100 ####[facility] [address] [place], [place], [address] Cholesterol [Mass/Vol] 120 mg/dL Normal <=200 [facility] Comment on above: Order Comment: Order Date: 03/13/25Order Info: [id number] - CMPOrder Info: [id number] - LIPID Result Comment: Chol esterol level, Desirable <200 mg/dLBorderline high cholesterol 200-239 mg/dLHigh cholesterol >=240 mg/dLRecommendations of the NCEP Adult Treatment Panel for thefollowing risk-cutoff thresholds for the [place] Americanpopulation. Performed By: #### L 500.9940 ####[facility] [address] [place], [place], [id number] Cholesterol in HDL [Mass/Vol] 46 mg/dL Normal [facility] Comment on above: Order Comment: Order Date: 03/13/25Order Info: [id number] - CMPOrder Info: [id number] - LIPID Result Comment: Makayla onal Cholesterol Education Program (NCEP) guidelines:<40 mg/dL: Low HDL-cholesterol (major risk factor for CHD)>= 60 mg/dL: High HDL-cholesterol (negative risk factor forCHD)HDL-cholesterol is affected by a number of factors, e.g.smoking, exercise, hormones, sex and age. Performed By: #### L 500.4100 ####[facility] [address] [place], [address] Cholesterol in LDL [Mass/Vol] 47 mg/dL Normal [facility] Comment on above: Order Comment: Order Date: 03/13/25Order Info: [id number] - CMPOrder Info: [id number] - LIPID Result Comment: Bord lkpcvl=356-918 mg/dL Higher Mrcp=847 mg/dL or greater Performed By: #### L 500.4100 ####[facility] [address] [place], [address] Cholesterol in VLDL [Mass/Vol] 27 mg/dL Normal 5-40 [facility] Comment on above: Order Comment: Order Date: 03/13/25Order Info: [id number] - CMPOrder Info: [id number] - LIPID Performed By: #### L 500.4100 ####[facility] [address] [place], [address] Triglyceride [Mass/Vol] 135 mg/dL Normal [facility] Comment on above: Order Comment: Order Date: 03/13/25Order Info: [id number] - CMPOrder Info: [id number] - LIPID Result Comment: The drugs N-Acetylcysteine and Metamizole may falselydepress this assay.Normal range: <150 mg/dLBorderline High: 150-199 mg/dLHigh: 200-499 mg/dLVery High: >500 mg/dL Performed By: #### L 500.4100 ####[facility] [address] [place], [address] Potassium measurement (mass/ volume)Ordered By: Ja Cooley on 04-03-2025 Potassium (Unsp spec) [Mass/Vol] 3.9 mmol/L 3.3-5.1 [facility] Screening total cholesterol/ high density lipoprotein (HDL) cholesterol ratioOrdered By: Ja Cooley on 04-03-2025 Cholesterol.total/Cholest gris in HDL [Mass ratio] 2.63 {ratio} [facility] Serum creatinine measurement (mass/volume)Ordered By: Ja Cooley on 04-03-2025 Creatinine [Mass/Vol] 0.78 mg/dL 0.70-1.20 [facility] Serum globulin measurementOr dered By: Ja Cooley on 04-03-2025 Globulin (S) [Mass/Vol] 2.8 g/dL 2.2-4.2 [facility] Serum glucose measurement (m ass/volume)Ordered By: Ja Cooley on 04-03-2025 Glucose [Mass/Vol] 109 mg/dL High 70-99 [facility] Serum or plasma alanine max otransferase (ALT) measurementOrdered By: Ja Cooley on 04-03-2025 ALT [Catalytic activity/Vol] 5 U/L <47 [facility] Serum or plasma albumin walt urement (mass/volume)Ordered By: Ja Cooley on 04-03-2025 Albumin [Mass/Vol] 3.9 g/dL 3.4-4.8 [facility] Serum or plasma albumin/glob ulin mass ratioOrdered By: Ja Cooley on 04-03-2025 Albumin/Globulin [Mass ratio] 1.4 {ratio} 0.9-2.4 [facility] Serum or plasma alkaline sarha sphatase measurementOrdered By: Ja Cooley on 04-03-2025 ALP [Catalytic activity/Vol] 79 U/L 40-129 [facility] Serum or plasma calcium walt urement (mass/volume)Ordered By: Ja Cooley on 04-03-2025 Calcium [Mass/Vol] 9.2 mg/dL 7.6-11.0 [facility] Serum or plasma cholesterol in HDL measurement (mass/volume)Ordered By: Ja Cooley on 04-03-2025 Cholesterol in HDL [Mass/Vol] 46 mg/dL >40 [facility] Comment on above: National Cholesterol Education Program (NCEP) guidelines:<40 mg/dL: Low HDL-cholesterol (major risk factor for CHD)>= 60 mg/dL: High HDL-cholesterol (negative risk factor for CHD)HDL-cholesterol is affected by a number of factors, e.g. smoking, exercise, hormones, sex and age. Serum or plasma cholesterol measurement (mass/volume)Ordered By: Ja Cooley on 04-03-2025 Cholesterol [Mass/Vol] 120 mg/dL <201 [facility] Comment on above: Cholesterol level, D esirable <200 mg/dLBorderline high cholesterol 200-239 mg/dLHigh cholesterol >=240 mg/dLRecommendations of the NCEP Adult Treatment Panel for the following risk-cutoff thresholds for the [place] population. Serum or plasma urea nitroge n measurement (mass/volume)Ordered By: Ja Cooley on 04-03-2025 Urea nitrogen [Mass/Vol] 16 mg/dL 4-19 [facility] Sodium levelOrdered By: Ja Cooley on 04-03-2025 Sodium [Moles/Vol] 142 mmol/L 133-145 [facility] Total proteinOrdered By: Kwabena Cooley on 04-03-2025 Protein [Mass/Vol] 6.6 g/dL 5.9-8.4 [facility] Triglycerides measurementOrd ered By: Ja Cooley on 04-03-2025 Triglyceride [Mass/Vol] 135 mg/dL <199 [facility] Comment on above: The drugs N-Acetylcy steine and Metamizole may falsely depress this assay. Normal range: <150 mg/dLBorderline High: 150-199 mg/dLHigh: 200-499 mg/dLVery High: >500 mg/dL Vitamin D,25 Hydroxyon 04-03 Vitamin D 25-OH 39.2 ng/mL Normal 30-100 [facility] Comment on above: Order Comment: Order Date: 03/13/25Order Info: [id number] - CMPOrder Info: [id number] - LIPID Result Comment: Lisa min D StatusDeficiency: <20 ng/mL (50nmol/L)Insufficiency: 20-30 ng/mL (50-75 nmol/L)Sufficiency: 30-100 ng/mL (75-250 nmol/L)Toxicity: >100 ng/mL (>250 nmol/L) Performed By: #### L 506.1001 ####[facility] [address] [place], [address] Chest without Contraston Chest without Contrast Normal [facility] Neurology Visit Reporton Neurology Visit Report Normal [facility] Absolute lymphocyte countOrd ered By: Jose Suhyamile on 03-03-2025 Lymphocytes Auto (Unsp spec) [#/Vol] 4.51 10*3/uL 0.83-4.51 [facility] Absolute neutrophil countOrd ered By: Jose Suhyamile on 03-03-2025 Neutrophils (Bld) [#/Vol] 5.4 10*3/uL 2.0-7.7 [facility] Automated lymphocyte count a s percentage of total leukocytesOrdered By: Jose Suhyamile on 03-03-2025 Lymphocytes/100 WBC Auto (Unsp spec) 39.8 % 19-41 [facility] Basophil percentageOrdered B y: Jose Suhyamile on 03-03-2025 Basophils/100 WBC (Bld) 0.7 % 0-1 [facility] CBC W/Diff, Automatedon 02-18 Absolute Lymph 4.51 X10 3/uL Normal 0.83-4.51 [facility] Comment on above: Performed By: #### L 100.0100 ####[facility] [address] [place], [address] Absolute Neut 5.4 X10 3/uL Normal 2.0-7.7 [facility] Comment on above: Performed By: #### L 100.0100 ####[facility] [address] [place], [address] Basophils/100 WBC (Bld) 0.7 % Normal 0-1 [facility] Comment on above: Performed By: #### L 100.0100 ####[facility] [address] [place], [address] Eosinophils/100 WBC (Bld) 1.2 % Normal 0-5 [facility] Comment on above: Performed By: #### L 100.0100 ####[facility] [address] [place], [address] Erythrocyte distribution width (RBC) [Ratio] 13.6 % Normal 11.6-14.6 [facility] Comment on above: Performed By: #### L 100.0100 ####[facility] [address] [place], [address] Hematocrit (Bld) [Volume fraction] 44.2 % Normal 40-54 [facility] Comment on above: Performed By: #### L 100.0100 ####[facility] [address] [place], [address] Hemoglobin (Bld) [Mass/Vol] 14.5 g/dL Normal 13.0-16.5 [facility] Comment on above: Performed By: #### L 100.0100 ####[facility] [address] [place], [address] IG% 0.500 Normal 0.0-0.9 [facility] Comment on above: Result Comment: IG% - Immature Granulocytes (promyelocytes, myelocytes andmetamyelocytes) > 1% indicates that a LEFT SHIFT is Present. Performed By: #### L 100.0100 ####[facility] [address] [place], [address] Lymphocytes/100 WBC (Bld) 39.8 % Normal 19-41 [facility] Comment on above: Performed By: #### L 100.0100 ####[facility] [address] [place], [address] MCH (RBC) [Entitic mass] 30.3 pg Normal 27.0-32.0 [facility] Comment on above: Performed By: #### L 100.0100 ####[facility] [address] [place], [address] MCHC (RBC) [Mass/Vol] 32.8 g/dL Normal 32-36 [facility] Comment on above: Performed By: #### L 100.0100 ####[facility] [address] [place], [address] MCV (RBC) [Entitic vol] 92.3 fL Normal 80-94 [facility] Comment on above: Performed By: #### L 100.0100 ####[facility] [address] [place], [address] Monocytes/100 WBC (Bld) 9.8 % Normal 0-10 [facility] Comment on above: Performed By: #### L 100.0100 ####[facility] [address] [place], [address] Neutrophils/100 WBC (Bld) 48.0 % Normal 47-70 [facility] Comment on above: Performed By: #### L 100.0100 ####[facility] [address] [place], [address] Nucleated RBC (Bld) [#/Vol] 0 10*3/uL Normal 0-5 [facility] Comment on above: Performed By: #### L 100.0100 ####[facility] [address] [place], [address] Platelet mean volume (Bld) [Entitic vol] 10.5 fL Normal 6.2-12.0 [facility] Comment on above: Performed By: #### L 100.0100 ####[facility] [address] [place], [address] Platelets (Bld) [#/Vol] 339 10*3/uL Normal 150-450 [facility] Comment on above: Performed By: #### L 100.0100 ####[facility] [address] [place], [address] RBC (Bld) [#/Vol] 4.79 10*6/uL Normal 4.6-6.2 [facility] Comment on above: Performed By: #### L 100.0100 ####[facility] [address] [place], [address] RDW SD 46.1 fl High 35.1-43.9 [facility] Comment on above: Performed By: #### L 100.0100 ####[facility] [address] [place], [address] WBC (Bld) [#/Vol] 11.3 10*3/uL High 4.4-11.0 [facility] Comment on above: Performed By: #### L 100.0100 ####[facility] [address] [place], [address] Eosinophil percentageOrdered By: Jose Perez on 03-03-2025 Eosinophils/100 WBC (Bld) 1.2 % 0-5 [facility] Erythrocyte distribution wid th (RBC) [Ratio]Ordered By: Jose Perez on 03-03-2025 Erythrocyte distribution width (RBC) [Entitic vol] 46.1 fL High 35.1-43.9 [facility] Erythrocyte distribution wid th ratioOrdered By: Jose Perez on 03-03-2025 Erythrocyte distribution width (RBC) [Ratio] 13.6 % 11.6-14.6 [facility] Erythrocyte distribution wid th standard deviationOrdered By: Jose Perez on 03-03-2025 Erythrocyte distribution width (RBC) [Ratio] 46.1 fl High 35.1-43.9 [facility] Hematocrit Auto (Bld) [Volum e fraction]Ordered By: Jose Perez on 03-03-2025 Hematocrit (Bld) [Volume fraction] 44.2 % 40-54 [facility] Hemoglobin measurementOrdere d By: Jose Perez on 03-03-2025 Hemoglobin (Bld) [Mass/Vol] 14.5 g/dL 13.0-16.5 [facility] Immature granulocytes/100 WB C Auto (Bld)Ordered By: Jose Perez on 03-03-2025 Immature granulocytes/100 WBC (Bld) 0.500 % 0.0-0.9 [facility] Comment on above: IG% - Immature Granu locytes (promyelocytes, myelocytes and metamyelocytes) > 1% indicates that a LEFT SHIFT is Present. Lymphocytes Auto (Unsp spec) [#/Vol]Ordered By: Jose Perez on 03-03-2025 Lymphocytes (Bld) [#/Vol] 4.51 10*3/uL 0.83-4.5 1 [facility] Lymphocytes/100 WBC Auto (Un sp spec)Ordered By: Jose Perez on 03-03-2025 Lymphocytes/100 WBC (Bld) 39.8 % 19-41 [facility] MCV (mean corpuscular volume ) determinationOrdered By: Jose Perez on 03-03-2025 MCV (RBC) [Entitic vol] 92.3 fL 80-94 [facility] Mean corpuscular hemoglobin (MCH) determinationOrdered By: Jose Perez on 03-03-2025 MCH (RBC) [Entitic mass] 30.3 pg 27.0-32.0 [facility] Mean corpuscular hemoglobin concentration (MCHC) determinationOrdered By: Jose Perez on 03-03-2025 MCHC (RBC) [Mass/Vol] 32.8 g/dL 32-36 [facility] Mean platelet volume determi nationOrdered By: Jose Perez on 03-03-2025 Platelet mean volume (Bld) [Entitic vol] 10.5 fL 6.2-12.0 [facility] Monocyte percentageOrdered B y: Jose Perez on 03-03-2025 Monocytes/100 WBC (Bld) 9.8 % 0-10 [facility] Neutrophil percentageOrdered By: Jose Perez on 03-03-2025 Neutrophils/100 WBC (Bld) 48.0 % 47-70 [facility] Nucleated red blood cell per centageOrdered By: Jose Perez on 03-03-2025 Nucleated RBC/100 WBC (Bld) [Ratio] 0 % 0-5 [facility] Platelet countOrdered By: Jasmine Perez on 03-03-2025 Platelets (Bld) [#/Vol] 339 10*3/uL 150-450 [facility] RBC Auto (Bld) [#/Vol]Ordere d By: Jose Perez on 03-03-2025 RBC (Bld) [#/Vol] 4.79 10*6/uL 4.6-6.2 [facility] White blood cell (WBC) count Ordered By: Jose Perez on 03-03-2025 WBC (Bld) [#/Vol] 11.3 10*3/uL High 4.4-11.0 [facility] SP/HP.SP.Davidson 02-26-2025 SP/HP.SP.EV Normal [facility] AST(SGOT)on 02-20-2025 AST [Catalytic activity/Vol] 13 U/L Normal <=37 [facility] Comment on above: Performed By: #### L 501.4405, L501.9985, L502.0250, L501.4100, L500.2500 ####[facility] [address] [place], [place], [id number] Alanine Aminotransferas (SGP T)on 02-20-2025 ALT [Catalytic activity/Vol] 7 U/L Normal <=46 [facility] Comment on above: Performed By: #### L 501.4405, L501.9985, L502.0250, L501.4100, L500.2500 ####[facility] [address] [place], [address] Albumin DL <= 20 mg/L (U) [M ass/Vol]Ordered By: Natasha Gregory on 02-20-2025 Urine Random Microalbumin 13.6 mg/L NO RANGE EST. [facility] Anion gap in Serum or Plasma Ordered By: Natasha Gregory on 02-20-2025 Anion gap [Moles/Vol] 13 mmol/L 5-15 [facility] BUN/creatinine ratioOrdered By: Natasha Gregory on 02-20-2025 Urea nitrogen/Creatinine [Mass ratio] 23.0 mg/mg High - [facility] Basic Metabolic Profile (BMP )on 02-20-2025 BUN/CRE 23.0 RATIO High - [facility] Comment on above: Performed By: #### L 501.4405, L501.9985, L502.0250, L501.4100, L500.2500 ####[facility] [address] [place], [address] Calcium [Mass/Vol] 9.0 mg/dL Normal 7.6-11.0 [facility] Comment on above: Performed By: #### L 501.4405, L501.9985, L502.0250, L501.4100, L500.2500 ####[facility] [address] [place], [address] Chloride [Moles/Vol] 102 mmol/L Normal 98-108 [facility] Comment on above: Performed By: #### L 501.4405, L501.9985, L502.0250, L501.4100, L500.2500 ####[facility] [address] [place], [address] CO2 [Moles/Vol] 21.9 mmol/L Normal 21.0-32.0 [facility] Comment on above: Performed By: #### L 501.4405, L501.9985, L502.0250, L501.4100, L500.2500 ####[facility] [address] [place], [address] Creatinine [Mass/Vol] 0.83 mg/dL Normal 0.70-1.20 [facility] Comment on above: Performed By: #### L 501.4405, L501.9985, L502.0250, L501.4100, L500.2500 ####[facility] [address] [place], [address] GAP 13 Normal 5-15 [facility] Comment on above: Performed By: #### L 501.4405, L501.9985, L502.0250, L501.4100, L500.2500 ####[facility] [address] [place], [address] GFR/1.73 sq M.predicted among non-blacks MDRD (S/P/Bld) [Vol rate/Area] 89 mL/min/{1.73_m2} Normal >60 [facility] Comment on above: Result Comment: mL/m in/1.73m2 CKD-EPI Creatinine Equation (2020) Performed By: #### L 501.4405, L501.9985, L502.0250, L501.4100, L500.2500 ####[facility] [address] [place], [address] Glucose [Mass/Vol] 277 mg/dL High 70-99 [facility] Comment on above: Performed By: #### L 501.4405, L501.9985, L502.0250, L501.4100, L500.2500 ####[facility] [address] [place], [address] Potassium [Moles/Vol] 4.1 mmol/L Normal 3.3-5.1 [facility] Comment on above: Performed By: #### L 501.4405, L501.9985, L502.0250, L501.4100, L500.2500 ####[facility] [address] [place], [address] Sodium [Moles/Vol] 137 mmol/L Normal 133-145 [facility] Comment on above: Performed By: #### L 501.4405, L501.9985, L502.0250, L501.4100, L500.2500 ####[facility] [address] [place], [address] Urea nitrogen [Mass/Vol] 19 mg/dL Normal 4-19 [facility] Comment on above: Performed By: #### L 501.4405, L501.9985, L502.0250, L501.4100, L500.2500 ####[facility] [address] [place], [address] Carbon dioxide, total [Moles /volume] in Central venous bloodOrdered By: Natasha Gregory on 02-20-2025 CO2 [Moles/Vol] 21.9 mmol/L 21.0-32.0 [facility] Chloride assayOrdered By: Terri Gregory on 02-20-2025 Chloride [Moles/Vol] 102 mmol/L 98-108 [facility] Creatinine Unsp time (U) [Ma ss/Vol]Ordered By: Natasha Gregory on 02-20-2025 Creatinine (U) [Mass/Vol] 155.00 mg/dL 39 .00-259. 00 [facility] GFR/1.73 sq M.predicted krystal g non-blacks MDRD (S/P/Bld) [Vol rate/Area]Ordered By: Natasha Gregory on 02-20-2025 Estimated GFR (MDRD) Non-Af Amer 89 >60 [facility] Comment on above: mL/min/1.73m2 CKD-EP I Creatinine Equation (2020) Glomerular filtration rate ( GFR) estimation/1.73 sq m using serum, plasma, or whole bOrdered By: Natasha Gregory on 02-20-2025 GFR/1.73 sq M.predicted among non-blacks MDRD (S/P/Bld) [Vol rate/Area] 89 mL/min/{1.73_m2} >60 [facility] Comment on above: mL/min/1.73m2 CKD-EP I Creatinine Equation (2020) Hemoglobin A1con 02-20-2025 HbA1c (Bld) [Mass fraction] 7.1 % Normal <=5.6 [facility] Comment on above: Performed By: #### L 501.4405, L501.9985, L502.0250, L501.4100, L500.2500 ####[facility] [address] [place], [address] Hemoglobin A1c percentageOrd ered By: Natasha Gregory on 02-20-2025 HbA1c (Bld) [Mass fraction] 7.1 % >5.7 [facility] Laboratory - Chemistry and C hemistry - challengeOrdered By: Natasha Gregory on 02-20-2025 AST [Catalytic activity/Vol] 13 U/L <38 [facility] Microalbumin/creat ratio urO rdered By: Natasha Gregory on 02-20-2025 Urine Microalbumin/Creatinine Ratio 87.7 mg/g CRE [facility] Potassium (Unsp spec) [Mass/ Vol]Ordered By: Natasha Gregory on 02-20-2025 Potassium [Moles/Vol] 4.1 mmol/L 3.3-5.1 [facility] Potassium measurement (mass/ volume)Ordered By: Natasha Gregory on 02-20-2025 Potassium (Unsp spec) [Mass/Vol] 4.1 mmol/L 3.3-5.1 [facility] Random urine creatinine walt urement (mass/volume)Ordered By: Natasha Gregory on 02-20-2025 Creatinine Unsp time (U) [Mass/Vol] 155.00 mg/dL 39.00-259. 00 [facility] Serum creatinine measurement (mass/volume)Ordered By: Natasha Gregory on 02-20-2025 Creatinine [Mass/Vol] 0.83 mg/dL 0.70-1.20 [facility] Serum glucose measurement (m ass/volume)Ordered By: Natasha Gregory on 02-20-2025 Glucose [Mass/Vol] 277 mg/dL High 70-99 [facility] Serum or plasma alanine max otransferase (ALT) measurementOrdered By: Natasha Gregory on 02-20-2025 ALT [Catalytic activity/Vol] 7 U/L <47 [facility] Serum or plasma calcium walt urement (mass/volume)Ordered By: Natasha Gregory on 02-20-2025 Calcium [Mass/Vol] 9.0 mg/dL 7.6-11.0 [facility] Serum or plasma urea nitroge n measurement (mass/volume)Ordered By: Natasha Gregory on 02-20-2025 Urea nitrogen [Mass/Vol] 19 mg/dL 4-19 [facility] Sodium levelOrdered By: Josefina Gregory on 02-20-2025 Sodium [Moles/Vol] 137 mmol/L 133-145 [facility] Urine albumin measurement [facility] detection limit of 20 mg/L or less (mass/volume)Ordered By: Natasha Gregory on 02-20-2025 Albumin DL <= 20 mg/L (U) [Mass/Vol] 13.6 mg/L NO RANGE EST. [facility] Brain/Head without Contrasto n 02-14-2025 Brain/Head without Contrast Normal [facility] Emergency Department Summary on 02-14-2025 Emergency Department Summary Normal [facility] Spine Cervical without Contr ason 02-14-2025 Spine Cervical without Contras Normal [facility] Neurology Visit Reporton Neurology Visit Report Normal [facility] Chest PA and Lateralon 01-21 Chest PA and Lateral Normal [facility] Microalb:Creat Ratio,Random URon 12-10-2024 Creatinine [Mass/Vol] 104.00 mg/dL Normal NO RAN GE EST. [facility] Comment on above: Order Comment: Order Date: 12/04/24Order Info: [id number] - MIACRE Performed By: #### L 502.0250 ####[facility] [address] [place], [address] MALB:CRE 17.0 mg/g CRE Normal <30 mg/g CRE [facility] Comment on above: Order Comment: Order Date: 12/04/24Order Info: [id number] - MIACRE Performed By: #### L 502.0250 ####[facility] [address] [place], [place], [id number] MICROALBUMIN,UR 17.7 mg/L Normal NO RANGE EST. [facility] Comment on above: Order Comment: Order Date: 12/04/24Order Info: [id number] - MIACRE Performed By: #### L 502.0250 ####[facility] [address] [place], [address] Neurology Visit Reporton Neurology Visit Report Normal [facility] Random urine microalbumin me asurementOrdered By: Ja Cooley on 12-10-2024 Urine Random Microalbumin 17.7 mg/L NO RANGE EST. [facility] Urine albumin/creatinine rat io for detection of microalbuminuriaOrdered By: Ja Cooley on 12-10-2024 Urine Microalbumin/Creatinine Ratio 17.0 mg/g CRE <30 [facility] Urine creatinine measurement (mass/volume)Ordered By: Ja Cooley on 12-10-2024 Creatinine (U) [Mass/Vol] 104.00 mg/dL NO RANGE EST. [facility] Brain/Head without Contrasto n 12-05-2024 Brain/Head without Contrast Normal [facility] Emergency Department Summary on 12-05-2024 Emergency Department Summary Normal [facility] Spine Cervical without Contr ason 12-05-2024 Spine Cervical without Contras Normal [facility] 44-IW-Pavrkyc DOrdered By: Chetan Cooley on 12-04-2024 Vitamin D 25-Hydroxy 47.5 ng/mL [facility] Comment on above: Vitamin D 25(OH) Sta tus Range Deficiency <20 ng/mL (50nmol/L) Insufficiency 20 - 30 ng/mL (50 - 75 nmol/L) Sufficiency 30 - 100 ng/mL (75 - 250 nmol/L) Toxicity >100 ng/mL (>250 nmol/L) Absolute lymphocyte countOrd ered By: Ja Cooley on 12-04-2024 Lymphocytes Auto (Unsp spec) [#/Vol] 3.42 10*3/uL 0.83-4.51 [facility] Absolute neutrophil countOrd ered By: Ja Cooley on 12-04-2024 Neutrophils (Bld) [#/Vol] 5.9 10*3/uL 2.0-7.7 [facility] Albumin to globulin ratioOrd ered By: Ja Cooley on 12-04-2024 Albumin/Globulin [Mass ratio] 1.0 {ratio} 0.9-2.4 [facility] Automated lymphocyte count a s percentage of total leukocytesOrdered By: aJ Anastacia on 12-04-2024 Lymphocytes/100 WBC Auto (Unsp spec) 31.5 % [facility] Basophil percentageOrdered B y: Ja Shepparddelia on 12-04-2024 Basophils/100 WBC (Bld) 1.2 % High 0-1 [facility] Bilirubin, totalOrdered By: Ja Anastacia on 12-04-2024 Bilirubin [Mass/Vol] 0.80 mg/dL 0.20-1.00 [facility] Comment on above: For patients on eltr ombopag therapy, use of Dimension Benge TBIL is not recommended. Blood urea nitrogen (BUN)/cr eatinine ratioOrdered By: Ja Cooley on 12-04-2024 Urea nitrogen/Creatinine [Mass ratio] 19.7 mg/mg - [facility] CBC W/Diff, Automatedon 11-20 Absolute Lymph 3.42 X10 3/uL Normal 0.83-4.51 [facility] Comment on above: Order Comment: Order Date: 12/04/24Order Info: [id number] - CBCD Performed By: #### L 501.5200, L500.4050, L100.0100, L500.4100, L506.1000, L501.9985 ####[facility] [address] [facility] [place], [address] Absolute Neut 5.9 X10 3/uL Normal 2.0-7.7 [facility] Comment on above: Order Comment: Order Date: 12/04/24Order Info: [id number] - CBCD Performed By: #### L 501.5200, L500.4050, L100.0100, L500.4100, L506.1000, L501.9985 ####[facility] [address] [place], [address] Basophils/100 WBC (Bld) 1.2 % High 0-1 [facility] Comment on above: Order Comment: Order Date: 12/04/24Order Info: [id number] - CBCD Performed By: #### L 501.5200, L500.4050, L100.0100, L500.4100, L506.1000, L501.9985 ####[facility] [address] [place], [address] Eosinophils/100 WBC (Bld) 1.8 % Normal 0-5 [facility] Comment on above: Order Comment: Order Date: 12/04/24Order Info: [id number] - CBCD Performed By: #### L 501.5200, L500.4050, L100.0100, L500.4100, L506.1000, L501.9985 ####[facility] [address] [place], [address] Erythrocyte distribution width (RBC) [Ratio] 13.4 % Normal 11.6-14.6 [facility] Comment on above: Order Comment: Order Date: 12/04/24Order Info: [id number] - CBCD Performed By: #### L 501.5200, L500.4050, L100.0100, L500.4100, L506.1000, L501.9985 ####[facility] [address] [place], [address] Hematocrit (Bld) [Volume fraction] 47.1 % Normal 40-54 [facility] Comment on above: Order Comment: Order Date: 12/04/24Order Info: [id number] - CBCD Performed By: #### L 501.5200, L500.4050, L100.0100, L500.4100, L506.1000, L501.9985 ####[facility] [address] [place], [address] Hemoglobin (Bld) [Mass/Vol] 15.4 g/dL Normal 13.0-16.5 [facility] Comment on above: Order Comment: Order Date: 12/04/24Order Info: [id number] - CBCD Performed By: #### L 501.5200, L500.4050, L100.0100, L500.4100, L506.1000, L501.9985 ####[facility] [address] [place], [address] IG% 0.600 Normal 0.0-0.9 [facility] Comment on above: Order Comment: Order Date: 12/04/24Order Info: [id number] - CBCD Result Comment: IG% - Immature Granulocytes (promyelocytes, myelocytes andmetamyelocytes) > 1% indicates that a LEFT SHIFT is Present. Performed By: #### L 501.5200, L500.4050, L100.0100, L500.4100, L506.1000, L501.9985 ####[facility] [address] [place], [address] Lymphocytes/100 WBC (Bld) 31.5 % Normal 19-41 [facility] Comment on above: Order Comment: Order Date: 12/04/24Order Info: [id number] - CBCD Performed By: #### L 501.5200, L500.4050, L100.0100, L500.4100, L506.1000, L501.9985 ####[facility] [address] [place], [address] MCH (RBC) [Entitic mass] 30.4 pg Normal 27.0-32.0 [facility] Comment on above: Order Comment: Order Date: 12/04/24Order Info: [id number] - CBCD Performed By: #### L 501.5200, L500.4050, L100.0100, L500.4100, L506.1000, L501.9985 ####[facility] [address] [place], [address] MCHC (RBC) [Mass/Vol] 32.7 g/dL Normal 32-36 [facility] Comment on above: Order Comment: Order Date: 12/04/24Order Info: [id number] - CBCD Performed By: #### L 501.5200, L500.4050, L100.0100, L500.4100, L506.1000, L501.9985 ####[facility] [address] [place], [address] MCV (RBC) [Entitic vol] 92.9 fL Normal 80-94 [facility] Comment on above: Order Comment: Order Date: 12/04/24Order Info: [id number] - CBCD Performed By: #### L 501.5200, L500.4050, L100.0100, L500.4100, L506.1000, L501.9985 ####[facility] [address] [place], [address] Monocytes/100 WBC (Bld) 10.8 % High 0-10 [facility] Comment on above: Order Comment: Order Date: 12/04/24Order Info: [id number]- - CBCD Performed By: #### L 501.5200, L500.4050, L100.0100, L500.4100, L506.1000, L501.9985 ####[facility] [address] [place], [address] Neutrophils/100 WBC (Bld) 54.1 % Normal 47-70 [facility] Comment on above: Order Comment: Order Date: 12/04/24Order Info: [id number] - CBCD Performed By: #### L 501.5200, L500.4050, L100.0100, L500.4100, L506.1000, L501.9985 ####[facility] [address] [place], [address] Nucleated RBC (Bld) [#/Vol] 0 10*3/uL Normal 0-5 [facility] Comment on above: Order Comment: Order Date: 12/04/24Order Info: [id number] - CBCD Performed By: #### L 501.5200, L500.4050, L100.0100, L500.4100, L506.1000, L501.9985 ####[facility] [address] [place], [address] Platelet mean volume (Bld) [Entitic vol] 10.8 fL Normal 6.2-12.0 [facility] Comment on above: Order Comment: Order Date: 12/04/24Order Info: [id number] - CBCD Performed By: #### L 501.5200, L500.4050, L100.0100, L500.4100, L506.1000, L501.9985 ####[facility] [address] [place], [address] Platelets (Bld) [#/Vol] 281 10*3/uL Normal 150-450 [facility] Comment on above: Order Comment: Order Date: 12/04/24Order Info: [id number]- - CBCD Performed By: #### L 501.5200, L500.4050, L100.0100, L500.4100, L506.1000, L501.9985 ####[facility] [address] [place], [address] RBC (Bld) [#/Vol] 5.07 10*6/uL Normal 4.6-6.2 [facility] Comment on above: Order Comment: Order Date: 12/04/24Order Info: [id number]- - CBCD Performed By: #### L 501.5200, L500.4050, L100.0100, L500.4100, L506.1000, L501.9985 ####[facility] [address] [place], [address] RDW SD 45.1 fl High 35.1-43.9 [facility] Comment on above: Order Comment: Order Date: 12/04/24Order Info: [id number] - CBCD Performed By: #### L 501.5200, L500.4050, L100.0100, L500.4100, L506.1000, L501.9985 ####[facility] [address] [place], [place], [id number] WBC (Bld) [#/Vol] 10.9 10*3/uL Normal 4.4-11.0 [facility] Comment on above: Order Comment: Order Date: 12/04/24Order Info: [id number] - CBCD Performed By: #### L 501.5200, L500.4050, L100.0100, L500.4100, L506.1000, L501.9985 ####[facility] [address] [place], [place], [id number] Carbon dioxide measurementOr dered By: Ja Cooley on 12-04-2024 CO2 [Moles/Vol] 29.0 mmol/L 21.0-32.0 [facility] Chloride measurementOrdered By: Ja Cooley on 12-04-2024 Chloride [Moles/Vol] 105 mmol/L 98-107 [facility] Comprehensive Metabolic Prof ilon 12-04-2024 Albumin [Mass/Vol] 3.7 g/dL Normal 3.2-5.0 [facility] Comment on above: Order Comment: Order Date: 12/04/24Order Info: [id number] - CMPOrder Info: [id number] - LIPIDOrder Info: - MG Performed By: #### L 501.5200, L500.4050, L100.0100, L500.4100, L506.1000, L501.9985 ####[facility] [address] [facility] [place], [address] Albumin/Globulin [Mass ratio] 1.0 {ratio} Normal 0.9-2.4 [facility] Comment on above: Order Comment: Order Date: 12/04/24Order Info: [id number] - CMPOrder Info: [id number] - LIPIDOrder Info: [id number] - MG Performed By: #### L 501.5200, L500.4050, L100.0100, L500.4100, L506.1000, L501.9985 ####[facility] [address] [place], [address] ALK P 91 U/L Normal 45-117 [facility] Comment on above: Order Comment: Order Date: 12/04/24Order Info: [id number] - CMPOrder Info: [id number] - LIPIDOrder Info: [id number] - MG Performed By: #### L 501.5200, L500.4050, L100.0100, L500.4100, L506.1000, L501.9985 ####[facility] [address] [place], [address] ALT [Catalytic activity/Vol] 11 U/L Low 16-61 [facility] Comment on above: Order Comment: Order Date: 12/04/24Order Info: 07-1 - CMPOrder Info: [id number] - LIPIDOrder Info: [id number] - MG Performed By: #### L 501.5200, L500.4050, L100.0100, L500.4100, L506.1000, L501.9985 ####[facility] [address] [place], [address] AST [Catalytic activity/Vol] 13 U/L Low 15-37 [facility] Comment on above: Order Comment: Order Date: 12/04/24Order Info: [id number]- - CMPOrder Info: [id number] - LIPIDOrder Info: [id number] - MG Performed By: #### L 501.5200, L500.4050, L100.0100, L500.4100, L506.1000, L501.9985 ####[facility] [address] [place], [address] Bilirubin [Mass/Vol] 0.80 mg/dL Normal 0.20-1.00 [facility] Comment on above: Order Comment: Order Date: 12/04/24Order Info: [id number] - CMPOrder Info: [id number] - LIPIDOrder Info: [id number] - MG Result Comment: For patients on eltrombopag therapy, use of Dimension Benge TBIL is not recommended. Performed By: #### L 501.5200, L500.4050, L100.0100, L500.4100, L506.1000, L501.9985 ####[facility] [address] [place], [address] BUN/CRE 19.7 RATIO Normal 10-20 [facility] Comment on above: Order Comment: Order Date: 12/04/24Order Info: [id number] - CMPOrder Info: [id number] - LIPIDOrder Info: [id number] - MG Performed By: #### L 501.5200, L500.4050, L100.0100, L500.4100, L506.1000, L501.9985 ####[facility] [address] [place], [address] CA,Total 9.4 mg/dL Normal 8.5-10.1 [facility] Comment on above: Order Comment: Order Date: 12/04/24Order Info: [id number] - CMPOrder Info: [id number] - LIPIDOrder Info: [id number] - MG Performed By: #### L 501.5200, L500.4050, L100.0100, L500.4100, L506.1000, L501.9985 ####[facility] [address] [place], [address] Chloride [Moles/Vol] 105 mmol/L Normal 98-107 [facility] Comment on above: Order Comment: Order Date: 12/04/24Order Info: [id number] - CMPOrder Info: [id number] - LIPIDOrder Info: [id number] - MG Performed By: #### L 501.5200, L500.4050, L100.0100, L500.4100, L506.1000, L501.9985 ####[facility] [address] [place], [address] CO2 [Moles/Vol] 29.0 mmol/L Normal 21.0-32.0 [facility] Comment on above: Order Comment: Order Date: 12/04/24Order Info: [id number] - CMPOrder Info: [id number] - LIPIDOrder Info: [id number] - MG Performed By: #### L 501.5200, L500.4050, L100.0100, L500.4100, L506.1000, L501.9985 ####[facility] [address] [place], [address] Creatinine [Mass/Vol] 0.96 mg/dL Normal 0.70-1.30 [facility] Comment on above: Order Comment: Order Date: 12/04/24Order Info: 07-1 - CMPOrder Info: [id number] - LIPIDOrder Info: [id number] - MG Result Comment: The validity of the calculated GFR GFRAA in patients over70 years has not been determined. Clinical correlation isessential. Performed By: #### L 501.5200, L500.4050, L100.0100, L500.4100, L506.1000, L501.9985 ####[facility] [address] [place], [address] EST GFR - AA 97 mL/min Normal >60 [facility] Comment on above: Order Comment: Order Date: 12/04/24Order Info: [id number] - CMPOrder Info: [id number] - LIPIDOrder Info: [id number] - MG Result Comment: Afri can [place] GFR Calc Performed By: #### L 501.5200, L500.4050, L100.0100, L500.4100, L506.1000, L501.9985 ####[facility] [address] [place], [address] GAP 5 Normal 5-15 [facility] Comment on above: Order Comment: Order Date: 12/04/24Order Info: [id number] - CMPOrder Info: [id number] - LIPIDOrder Info: [id number] - MG Performed By: #### L 501.5200, L500.4050, L100.0100, L500.4100, L506.1000, L501.9985 ####[facility] [address] [place], [address] GFR/1.73 sq M.predicted among non-blacks MDRD (S/P/Bld) [Vol rate/Area] 80 mL/min/{1.73_m2} Normal >60 [facility] Comment on above: Order Comment: Order Date: 12/04/24Order Info: [id number] - CMPOrder Info: [id number] - LIPIDOrder Info: [id number] - MG Result Comment: Non- GFR Calc Performed By: #### L 501.5200, L500.4050, L100.0100, L500.4100, L506.1000, L501.9985 ####[facility] [address] [place], [address] Globulin (S) [Mass/Vol] 3.7 g/dL Normal 2.2-4.2 [facility] Comment on above: Order Comment: Order Date: 12/04/24Order Info: [id number] - CMPOrder Info: [id number] - LIPIDOrder Info: [id number] - MG Performed By: #### L 501.5200, L500.4050, L100.0100, L500.4100, L506.1000, L501.9985 ####[facility] [address] [place], [address] Glucose [Mass/Vol] 48 mg/dL Low 74-106 [facility] Comment on above: Order Comment: Order Date: 12/04/24Order Info: [id number] - CMPOrder Info: [id number] - LIPIDOrder Info: [id number] - MG Result Comment: Gluc ose result less than 50 mg/dL suggests HYPOGLYCEMIA. Performed By: #### L 501.5200, L500.4050, L100.0100, L500.4100, L506.1000, L501.9985 ####[facility] [address] [place], [address] Potassium [Moles/Vol] 3.9 mmol/L Normal 3.5-5.1 [facility] Comment on above: Order Comment: Order Date: 12/04/24Order Info: [id number]- - CMPOrder Info: [id number] - LIPIDOrder Info: [id number] - MG Performed By: #### L 501.5200, L500.4050, L100.0100, L500.4100, L506.1000, L501.9985 ####[facility] [address] [place], [address] Sodium [Moles/Vol] 139 mmol/L Normal 136-145 [facility] Comment on above: Order Comment: Order Date: 12/04/24Order Info: 07- - CMPOrder Info: [id number] - LIPIDOrder Info: [id number] - MG Performed By: #### L 501.5200, L500.4050, L100.0100, L500.4100, L506.1000, L501.9985 ####[facility] [address] [place], [address] T PROT 7.4 g/dL Normal 6.4-8.2 [facility] Comment on above: Order Comment: Order Date: 12/04/24Order Info: [id number]- - CMPOrder Info: [id number] - LIPIDOrder Info: [id number] - MG Performed By: #### L 501.5200, L500.4050, L100.0100, L500.4100, L506.1000, L501.9985 ####[facility] [address] [place], [address] Urea nitrogen [Mass/Vol] 19 mg/dL High 7-18 [facility] Comment on above: Order Comment: Order Date: 12/04/24Order Info: [id number] - CMPOrder Info: [id number] - LIPIDOrder Info: [id number] - MG Performed By: #### L 501.5200, L500.4050, L100.0100, L500.4100, L506.1000, L501.9985 ####[facility] [address] [place], [place], [address] Eosinophil percentageOrdered By: Ja Cooely on 12-04-2024 Eosinophils/100 WBC (Bld) 1.8 % 0-5 [facility] Erythrocyte distribution wid th ratioOrdered By: Ja Cooley on 12-04-2024 Erythrocyte distribution width (RBC) [Ratio] 13.4 % 11.6-14.6 [facility] Erythrocyte distribution wid th standard deviationOrdered By: Ja Cooley on 12-04-2024 Erythrocyte distribution width (RBC) [Entitic vol] 45.1 fL High 35.1-43.9 [facility] Erythrocyte distribution width (RBC) [Ratio] 45.1 fl High 35.1-43.9 [facility] Estimated glomerular filtrat ion rate (GFR) AmericanOrdered By: Ja Cooley on 12-04-2024 Estimated GFR (MDRD) Amer 97 mL/min >60 [facility] Comment on above: GFR Calc Glomerular filtration rate ( GFR) estimationOrdered By: Ja Cooley on 12-04-2024 Estimated GFR (MDRD) Non-Af Amer 80 mL/min >60 [facility] Comment on above: Non- GFR Calc GFR/1.73 sq M.predicted among non-blacks MDRD (S/P/Bld) [Vol rate/Area] 80 mL/min/{1.73_m2} >60 [facility] Comment on above: Non- GFR Calc Glucose measurementOrdered B y: Ja Cooley on 12-04-2024 Glucose [Mass/Vol] 48 mg/dL Low 74-106 [facility] Comment on above: Glucose result less than 50 mg/dL suggests HYPOGLYCEMIA. Hematocrit Auto (Bld) [Volum e fraction]Ordered By: Ja Cooley on 12-04-2024 Hematocrit (Bld) [Volume fraction] 47.1 % 40-54 [facility] Hemoglobin A1con 12-04-2024 HbA1c (Bld) [Mass fraction] 6.5 % High 3.8-5.6 [facility] Comment on above: Order Comment: Order Date: 12/04/24Order Info: [id number] - A1C Result Comment: Norm al < 5.7 % Prediabetic 5.7 - 6.4 % Diabetic >or= 6.5 % Please note range changes. Performed By: #### L 501.5200, L500.4050, L100.0100, L500.4100, L506.1000, L501.9985 ####[facility] [address] [place], [address] Hemoglobin A1c percentageOrd ered By: Ja Cooley on 12-04-2024 HbA1c (Bld) [Mass fraction] 6.5 % High 3.8-5.6 [facility] Comment on above: Normal < 5.7 % Predi abetic 5.7 - 6.4 % Diabetic >or= 6.5 % Please note range changes. Hemoglobin measurementOrdere d By: Ja Cooley on 12-04-2024 Hemoglobin (Bld) [Mass/Vol] 15.4 g/dL 13.0-16.5 [facility] High density lipoprotein (HD L) measurementOrdered By: Ja Cooley on 12-04-2024 Cholesterol in HDL [Mass/Vol] 45 mg/dL >40 [facility] Comment on above: The drugs N-Acetylcy steine and Metamizole may falsely depress this assay. Reference Range HDL <40 mg/dL Low HDL Cholesterol HDL >or= 60 mg/dL High HDL Cholesterol Immature granulocytes/100 WB C Auto (Bld)Ordered By: Ja Cooley on 12-04-2024 Immature granulocytes/100 WBC (Bld) 0.600 % 0.0-0.9 [facility] Comment on above: IG% - Immature Granu locytes (promyelocytes, myelocytes and metamyelocytes) > 1% indicates that a LEFT SHIFT is Present. Laboratory - Chemistry and C hemistry - challengeOrdered By: Ja Cooley on 12-04-2024 AST [Catalytic activity/Vol] 13 U/L Low 15-37 [facility] Lipid Profileon 12-04-2024 Cholesterol [Mass/Vol] 192 mg/dL Normal 200 [facility] Comment on above: Order Comment: Order Date: 01/15/25Order Info: [id number] - CMPOrder Info: [id number] - LIPIDOrder Info: [id number] - MG Result Comment: <200 mg/dL Desirable 200-240 mg/dL Borderline >240 mg/dL High Risk Performed By: #### L 501.5200, L500.4050, L100.0100, L500.4100, L506.1000, L501.9985 ####[facility] [address] [place], [address] Cholesterol in HDL [Mass/Vol] 45 mg/dL Normal [facility] Comment on above: Order Comment: Order Date: 12/04/24Order Info: 07-1 - CMPOrder Info: [id number] - LIPIDOrder Info: [id number] - MG Result Comment: The drugs N-Acetylcysteine and Metamizole may falselydepress this assay. Reference Range HDL <40 mg/dL Low HDL Cholesterol HDL >or= 60 mg/dL High HDL Cholesterol Performed By: #### L 501.5200, L500.4050, L100.0100, L500.4100, L506.1000, L501.9985 ####[facility] [address] [place], [address] Cholesterol in LDL [Mass/Vol] 116 mg/dL Normal 0-130 [facility] Comment on above: Order Comment: Order Date: 12/04/24Order Info: [id number] - CMPOrder Info: [id number] - LIPIDOrder Info: [id number] - MG Performed By: #### L 501.5200, L500.4050, L100.0100, L500.4100, L506.1000, L501.9985 ####[facility] [address] [place], [address] Cholesterol in VLDL [Mass/Vol] 31 mg/dL Normal 5-40 [facility] Comment on above: Order Comment: Order Date: 12/04/24Order Info: [id number] - CMPOrder Info: [id number] - LIPIDOrder Info: [id number] - MG Performed By: #### L 501.5200, L500.4050, L100.0100, L500.4100, L506.1000, L501.9985 ####[facility] [address] [facility] [place], [place], [address] Triglyceride [Mass/Vol] 153 mg/dL Normal [facility] Comment on above: Order Comment: Order Date: 12/04/24Order Info: [id number] - CMPOrder Info: [id number] - LIPIDOrder Info: [id number] - MG Result Comment: The drugs N-Acetylcysteine and Metamizole may falselydepress this assay.Serum Triglycerides Reference Interval Normal <150 mg/dL Borderline high 150 - 199 mg/dL High 200 - 499 mg/dL Very High > or = 500 mg/dL Performed By: #### L 501.5200, L500.4050, L100.0100, L500.4100, L506.1000, L501.9985 ####[facility] [address] [facility]. [place], [place], [id number] Low density lipoprotein (LDL ) cholesterol measurementOrdered By: Ja Cooley on 12-04-2024 Cholesterol in LDL [Mass/Vol] 116 mg/dL 0-130 [facility] Lymphocytes Auto (Unsp spec) [#/Vol]Ordered By: Ja Cooley on 12-04-2024 Lymphocytes (Bld) [#/Vol] 3.42 10*3/uL 0.83-4.5 1 [facility] Lymphocytes/100 WBC Auto (Un sp spec)Ordered By: Ja Cooley on 12-04-2024 Lymphocytes/100 WBC (Bld) 31.5 % 19-41 [facility] MCV (mean corpuscular volume ) determinationOrdered By: Ja Cooley on 12-04-2024 MCV (RBC) [Entitic vol] 92.9 fL 80-94 [facility] Magnesiumon 12-04-2024 Magnesium [Mass/Vol] 2.0 mg/dL Normal 1.6-2.6 [facility] Comment on above: Order Comment: Order Date: 12/04/24Order Info: [id number] - CMPOrder Info: [id number] - LIPIDOrder Info: [id number] - MG Performed By: #### L 501.5200, L500.4050, L100.0100, L500.4100, L506.1000, L501.9985 ####[facility] [address] [place], [address] Magnesium measurementOrdered By: Ja Cooley on 12-04-2024 Magnesium [Mass/Vol] 2.0 mg/dL 1.6-2.6 [facility] Mean corpuscular hemoglobin (MCH) determinationOrdered By: Ja Cooley on 12-04-2024 MCH (RBC) [Entitic mass] 30.4 pg 27.0-32.0 [facility] Mean corpuscular hemoglobin concentration (MCHC) determinationOrdered By: Ja Cooley on 12-04-2024 MCHC (RBC) [Mass/Vol] 32.7 g/dL 32-36 [facility] Mean platelet volume determi nationOrdered By: Ja Cooley on 12-04-2024 Platelet mean volume (Bld) [Entitic vol] 10.8 fL 6.2-12.0 [facility] Monocyte percentageOrdered B y: Ja Cooley on 12-04-2024 Monocytes/100 WBC (Bld) 10.8 % High 0-10 [facility] Neutrophil percentageOrdered By: Ja Cooley on 12-04-2024 Neutrophils/100 WBC (Bld) 54.1 % 47-70 [facility] Nucleated red blood cell per centageOrdered By: Ja Cooley on 12-04-2024 Nucleated RBC/100 WBC (Bld) [Ratio] 0 % 0-5 [facility] Platelet countOrdered By: Rimma Cooley on 12-04-2024 Platelets (Bld) [#/Vol] 281 10*3/uL 150-450 [facility] Potassium measurementOrdered By: Ja Cooley on 12-04-2024 Potassium [Moles/Vol] 3.9 mmol/L 3.5-5.1 [facility] RBC Auto (Bld) [#/Vol]Ordere d By: Ja Cooley on 12-04-2024 RBC (Bld) [#/Vol] 5.07 10*6/uL 4.6-6.2 [facility] Serum anion gap measurementO rdered By: Ja Cooley on 12-04-2024 Anion gap [Moles/Vol] 5 mmol/L 04-03 [facility] Serum globulin measurementOr dered By: Ja Cooley on 12-04-2024 Globulin (S) [Mass/Vol] 3.7 g/dL 2.2-4.2 [facility] Serum or plasma alanine max otransferase (ALT) measurementOrdered By: Ja Cooley on 12-04-2024 ALT [Catalytic activity/Vol] 11 U/L Low 16-61 [facility] Serum or plasma albumin walt urement (mass/volume)Ordered By: Ja Cooley on 12-04-2024 Albumin [Mass/Vol] 3.7 g/dL 3.2-5.0 [facility] Serum or plasma alkaline sarah sphatase measurementOrdered By: Ja Cooley on 12-04-2024 ALP [Catalytic activity/Vol] 91 U/L 45-117 [facility] Serum or plasma calcium walt urement (mass/volume)Ordered By: Ja Cooley on 12-04-2024 Calcium [Mass/Vol] 9.4 mg/dL 8.5-10.1 [facility] Serum or plasma cholesterol measurement (mass/volume)Ordered By: Ja Cooley on 12-04-2024 Cholesterol [Mass/Vol] 192 mg/dL <200 [facility] Comment on above: <200 mg/dL Desirable 200-240 mg/dL Borderline >240 mg/dL High Risk Serum or plasma creatinine m easurement (mass/volume)Ordered By: Ja Cooley on 12-04-2024 Creatinine [Mass/Vol] 0.96 mg/dL 0.70-1.30 [facility] Comment on above: The validity of the calculated GFR & GFRAA in patients over 70 years has not been determined. Clinical correlation is essential. Serum or plasma urea nitroge n measurement (mass/volume)Ordered By: Ja Cooley on 12-04-2024 Urea nitrogen [Mass/Vol] 19 mg/dL High 7-18 [facility] Sodium levelOrdered By: Ja Cooley on 12-04-2024 Sodium [Moles/Vol] 139 mmol/L 136-145 [facility] Total proteinOrdered By: Kwabena Cooley on 12-04-2024 Protein [Mass/Vol] 7.4 g/dL 6.4-8.2 [facility] Triglycerides measurementOrd ered By: Ja Cooley on 12-04-2024 Triglyceride [Mass/Vol] 153 mg/dL <199 [facility] Comment on above: The drugs N-Acetylcy steine and Metamizole may falsely depress this assay.Serum Triglycerides Reference Interval Normal <150 mg/dL Borderline high 150 - 199 mg/dL High 200 - 499 mg/dL Very High > or = 500 mg/dL Very low density lipoprotein (VLDL) cholesterol measurementOrdered By: Ja Cooley on 12-04-2024 Very low density lipoprotein (VLDL) cholesterol measurement 31 mg/dL 5-40 [facility] VLDL Cholesterol 31 mg/dL 5-40 [facility] Vitamin D,25 Hydroxyon 12-04 Vitamin D 25-OH 47.5 ng/mL Normal [facility] Comment on above: Order Comment: Order Date: 12/04/24Order Info: [id number] - [id number] Result Comment: Lisa min D 25(OH) Status Range Deficiency <20 ng/mL (50nmol/L) Insufficiency 20 - 30 ng/mL (50 - 75 nmol/L) Sufficiency 30 - 100 ng/mL (75 - 250 nmol/L) Toxicity >100 ng/mL (>250 nmol/L) Performed By: #### L 501.5200, L500.4050, L100.0100, L500.4100, L506.1000, L501.9985 ####[facility] [address] [place], [place], [id number] White blood cell (WBC) count Ordered By: Ja Cooley on 12-04-2024 WBC (Bld) [#/Vol] 10.9 10*3/uL 4.4-11.0 [facility] Chest PA and Lateralon 12-02 Chest PA and Lateral Normal [facility] AST(SGOT)on 10-28-2024 AST [Catalytic activity/Vol] 9 U/L Low 15-37 [facility] Comment on above: Performed By: #### L 501.4100, L501.4405, L500.2500, L501.9985 ####[facility] [address] [place], [address] Alanine Aminotransferas (SGP T)on 10-28-2024 ALT [Catalytic activity/Vol] 8 U/L Low 16-61 [facility] Comment on above: Performed By: #### L 501.4100, L501.4405, L500.2500, L501.9985 ####[facility] [address] [place], [address] Basic Metabolic Profile (BMP )on 10-28-2024 BUN/CRE 26.5 RATIO High 10-20 [facility] Comment on above: Performed By: #### L 501.4100, L501.4405, L500.2500, L501.9985 ####[facility] [address] [place], [address] CA,Total 9.3 mg/dL Normal 8.5-10.1 [facility] Comment on above: Performed By: #### L 501.4100, L501.4405, L500.2500, L501.9985 ####[facility] [address] [place], [address] Chloride [Moles/Vol] 105 mmol/L Normal 98-107 [facility] Comment on above: Performed By: #### L 501.4100, L501.4405, L500.2500, L501.9985 ####[facility] [address] [place], [address] CO2 [Moles/Vol] 31.0 mmol/L Normal 21.0-32.0 [facility] Comment on above: Performed By: #### L 501.4100, L501.4405, L500.2500, L501.9985 ####[facility] [address] [place], [address] Creatinine [Mass/Vol] 0.91 mg/dL Normal 0.70-1.30 [facility] Comment on above: Result Comment: The validity of the calculated GFR GFRAA in patients over70 years has not been determined. Clinical correlation isessential. Performed By: #### L 501.4100, L501.4405, L500.2500, L501.9985 ####[facility] [address] [place], [address] EST GFR - AA 103 mL/min Normal >60 [facility] Comment on above: Result Comment: Afri can [place] GFR Calc Performed By: #### L 501.4100, L501.4405, L500.2500, L501.9985 ####[facility] [address] [place], [address] GAP 5 Normal 5-15 [facility] Comment on above: Performed By: #### L 501.4100, L501.4405, L500.2500, L501.9985 ####[facility] [address] [place], [address] GFR/1.73 sq M.predicted among non-blacks MDRD (S/P/Bld) [Vol rate/Area] 86 mL/min/{1.73_m2} Normal >60 [facility] Comment on above: Result Comment: Non- GFR Calc Performed By: #### L 501.4100, L501.4405, L500.2500, L501.9985 ####[facility] [address] [place], [address] Glucose [Mass/Vol] 111 mg/dL High 74-106 [facility] Comment on above: Result Comment: Fast ing Glucose result from 100 to 125 mg/dLsuggests IMPAIRED HOMEOSTASIS per A.D.A. criteria. Performed By: #### L 501.4100, L501.4405, L500.2500, L501.9985 ####[facility] [address] [place], [address] Potassium [Moles/Vol] 3.4 mmol/L Low 3.5-5.1 [facility] Comment on above: Performed By: #### L 501.4100, L501.4405, L500.2500, L501.9985 ####[facility] [address] [place], [address] Sodium [Moles/Vol] 142 mmol/L Normal 136-145 [facility] Comment on above: Performed By: #### L 501.4100, L501.4405, L500.2500, L501.9985 ####[facility] [address] [place], [address] Urea nitrogen [Mass/Vol] 24 mg/dL High 7-18 [facility] Comment on above: Performed By: #### L 501.4100, L501.4405, L500.2500, L501.9985 ####[facility] [address] [place], [address] Blood urea nitrogen (BUN)/cr eatinine ratioOrdered By: Natasha Gregory on 10-28-2024 Urea nitrogen/Creatinine [Mass ratio] 26.5 mg/mg High 10-20 [facility] Carbon dioxide measurementOr dered By: Natasha Gregory on 10-28-2024 CO2 [Moles/Vol] 31.0 mmol/L 21.0-32.0 [facility] Chloride measurementOrdered By: Natasha Gregory on 10-28-2024 Chloride [Moles/Vol] 105 mmol/L 98-107 [facility] Estimated glomerular filtrat ion rate (GFR) AmericanOrdered By: Natasha Gregory on 10-28-2024 Estimated GFR (MDRD) Amer 103 mL/min >60 [facility] Comment on above: GFR Calc Glomerular filtration rate ( GFR) estimationOrdered By: Natasha Gregory on 10-28-2024 Estimated GFR (MDRD) Non-Af Amer 86 mL/min >60 [facility] Comment on above: Non- GFR Calc Glucose measurementOrdered B y: Natasha Colt on 10-28-2024 Glucose [Mass/Vol] 111 mg/dL High 74-106 [facility] Comment on above: Fasting Glucose resu lt from 100 to 125 mg/dL suggests IMPAIRED HOMEOSTASIS per A.D.A. criteria. Hemoglobin A1con 10-28-2024 HbA1c (Bld) [Mass fraction] 6.4 % High 3.8-5.6 [facility] Comment on above: Result Comment: Norm al < 5.7 % Prediabetic 5.7 - 6.4 % Diabetic >or= 6.5 % Please note range changes. Performed By: #### L 501.4100, L501.4405, L500.2500, L501.9985 ####[facility] [address] [place], [address] Hemoglobin A1c percentageOrd ered By: Natasha Gregory on 10-28-2024 HbA1c (Bld) [Mass fraction] 6.4 % High 3.8-5.6 [facility] Comment on above: Normal < 5.7 % Predi abetic 5.7 - 6.4 % Diabetic >or= 6.5 % Please note range changes. Laboratory - Chemistry and C hemistry - challengeOrdered By: Natasha Gregory on 10-28-2024 AST [Catalytic activity/Vol] 9 U/L Low 15-37 [facility] Potassium measurementOrdered By: Natasha Gregory on 10-28-2024 Potassium [Moles/Vol] 3.4 mmol/L Low 3.5-5.1 [facility] Serum anion gap measurementO rdered By: Natasha Gregory on 10-28-2024 Anion gap [Moles/Vol] 5 mmol/L 5-15 [facility] Serum or plasma alanine max otransferase (ALT) measurementOrdered By: Natasha Gregory on 10-28-2024 ALT [Catalytic activity/Vol] 8 U/L Low 16-61 [facility] Serum or plasma calcium walt urement (mass/volume)Ordered By: Natasha Gregory on 10-28-2024 Calcium [Mass/Vol] 9.3 mg/dL 8.5-10.1 [facility] Serum or plasma creatinine m easurement (mass/volume)Ordered By: Natasha Gregory on 10-28-2024 Creatinine [Mass/Vol] 0.91 mg/dL 0.70-1.30 [facility] Comment on above: The validity of the calculated GFR & GFRAA in patients over 70 years has not been determined. Clinical correlation is essential. Serum or plasma urea nitroge n measurement (mass/volume)Ordered By: Natasha Gregory on 10-28-2024 Urea nitrogen [Mass/Vol] 24 mg/dL High 7-18 [facility] Sodium levelOrdered By: Jsoefina Gregory on 10-28-2024 Sodium [Moles/Vol] 142 mmol/L 136-145 [facility] Emergency Department Summary on 10-12-2024 Emergency Department Summary Normal [facility] Ribs Uni Min 3V w/PA Cheston 10-12-2024 Ribs Uni Min 3V w/PA Chest Normal [facility] Chest PA and Lateralon 09-27 Chest PA and Lateral Normal [facility] Basophil percentageOrdered B y: Vick Santo on 03-25-2024 Bilirubin [Mass/Vol] 0.70 mg/dL 0.20-1.00 [facility] Comment on above: For patients on eltr ombopag therapy, use of Dimension Benge TBIL is not recommended. Chloride [Moles/Vol] 104 mmol/L 98-107 [facility] Glucose [Mass/Vol] 260 mg/dL 74-106 [facility] Comment on above: Glucose result great er than or equal to 200 mg/dLsuggests DIABETES MELLITUS per A.D.A. criteria. Potassium [Moles/Vol] 3.9 mmol/L 3.5-5.1 [facility] Protein [Mass/Vol] 6.8 g/dL 6.4-8.2 [facility] Sodium [Moles/Vol] 138 mmol/L 136-145 [facility] Laboratory - Chemistry and C hemistry - challengeOrdered By: Vick Santo on 03-25-2024 Albumin/Globulin [Mass ratio] 1.1 {ratio} 0.9-2.4 [facility] ALP [Catalytic activity/Vol] 62 U/L 45-117 [facility] ALT [Catalytic activity/Vol] 13 U/L 16-61 [facility] CO2 [Moles/Vol] 28.0 mmol/L 21.0-32.0 [facility] Globulin (S) [Mass/Vol] 3.3 g/dL 2.2-4.2 [facility] Urea nitrogen/Creatinine [Mass ratio] 23.8 mg/mg 10-20 [facility] No Panel InformationOrdered By: Vick Santo on 03-25-2024 Estimated GFR (MDRD) Amer 92 mL/min >60 [facility] Comment on above: GFR Calc Estimated GFR (MDRD) Non-Af Amer 76 mL/min >60 [facility] Comment on above: Non- GFR Calc Serum or plasma calcium walt urement (mass/volume)Ordered By: Vick Santo on 03-25-2024 Calcium [Mass/Vol] 8.9 mg/dL 8.5-10.1 [facility] Serum or plasma creatinine m easurement (mass/volume)Ordered By: Vick Santo on 03-25-2024 Creatinine [Mass/Vol] 1.01 mg/dL 0.70-1.30 [facility] Comment on above: The validity of the calculated GFR & GFRAA in patients over 70 years has not been determined. Clinical correlation is essential. Serum or plasma urea nitroge n measurement (mass/volume)Ordered By: Vick Santo on 03-25-2024 Urea nitrogen [Mass/Vol] 24 mg/dL 7-18 [facility] Thin prep Papanicolaou smear with manual screeningOrdered By: Vick Santo on 03-25-2024 Thin prep Papanicolaou smear with manual screening 3.5 g/dL 3.2-5.0 [facility] Thin prep Papanicolaou smear with manual screening 11 U/L 15-37 [facility] Thin prep Papanicolaou smear with manual screening 6 5-15 [facility] Whole blood hemoglobin A1c/t otal hemoglobin ratio (mass fraction)Ordered By: Vick Santo on 03-25-2024 HbA1c (Bld) [Mass fraction] 6.1 % 3.8-5.6 [facility] Comment on above: Normal < 5.7 % Predi abetic 5.7 - 6.4 % Diabetic >or= 6.5 % Please note range changes. Basophil percentageOrdered B y: Ja Cooley on 02-27-2024 Chloride [Moles/Vol] 106 mmol/L 98-107 [facility] Glucose [Mass/Vol] 94 mg/dL 74-106 [facility] Potassium [Moles/Vol] 3.9 mmol/L 3.5-5.1 [facility] Sodium [Moles/Vol] 141 mmol/L 136-145 [facility] Laboratory - Chemistry and C hemistry - challengeOrdered By: Ja Cooley on 02-27-2024 ALT [Catalytic activity/Vol] 14 U/L 16-61 [facility] CO2 [Moles/Vol] 28.0 mmol/L 21.0-32.0 [facility] Urea nitrogen/Creatinine [Mass ratio] 22.1 mg/mg 10-20 [facility] No Panel InformationOrdered By: Ja Cooley on 02-27-2024 Estimated GFR (MDRD) Amer 104 mL/min >60 [facility] Comment on above: GFR Calc Estimated GFR (MDRD) Non-Af Amer 86 mL/min >60 [facility] Comment on above: Non- GFR Calc Serum or plasma calcium walt urement (mass/volume)Ordered By: Ja Cooley on 02-27-2024 Calcium [Mass/Vol] 9.3 mg/dL 8.5-10.1 [facility] Serum or plasma creatinine m easurement (mass/volume)Ordered By: Ja Cooley on 02-27-2024 Creatinine [Mass/Vol] 0.90 mg/dL 0.70-1.30 [facility] Comment on above: The validity of the calculated GFR & GFRAA in patients over 70 years has not been determined. Clinical correlation is essential. Serum or plasma urea nitroge n measurement (mass/volume)Ordered By: Ja Cooley on 02-27-2024 Urea nitrogen [Mass/Vol] 20 mg/dL 7-18 [facility] Thin prep Papanicolaou smear with manual screeningOrdered By: Ja Cooley on 02-27-2024 Thin prep Papanicolaou smear with manual screening 15 U/L 15-37 [facility] Thin prep Papanicolaou smear with manual screening 7 5-15 [facility] Whole blood hemoglobin A1c/t otal hemoglobin ratio (mass fraction)Ordered By: Ja Cooley on 02-27-2024 HbA1c (Bld) [Mass fraction] 6.1 % 3.8-5.6 [facility] Comment on above: Normal < 5.7 % Predi abetic 5.7 - 6.4 % Diabetic >or= 6.5 % Please note range changes. Absolute lymphocyte countOrd ered By: Ja Cooley on 12-15-2023 Lymphocytes Auto (Unsp spec) [#/Vol] 3.13 10*3/uL 0.83-4.51 [facility] Automated lymphocyte count a s percentage of total leukocytesOrdered By: Ja Cooley on 12-15-2023 Lymphocytes/100 WBC Auto (Unsp spec) 38.1 % 19-41 [facility] Basophil percentageOrdered B y: Ja Cooley on 12-15-2023 Basophils/100 WBC (Bld) 0.7 % 0-1 [facility] Bilirubin [Mass/Vol] 0.80 mg/dL 0.20-1.00 [facility] Comment on above: For patients on eltr ombopag therapy, use of Dimension Benge TBIL is not recommended. Chloride [Moles/Vol] 107 mmol/L 98-107 [facility] Cholesterol [Mass/Vol] 136 mg/dL <200 [facility] Comment on above: <200 mg/dL Desirable 200-240 mg/dL Borderline >240 mg/dL High Risk Eosinophils/100 WBC (Bld) 1.8 % 0-5 [facility] Glucose [Mass/Vol] 87 mg/dL 74-106 [facility] Hemoglobin (Bld) [Mass/Vol] 15.3 g/dL 13.0-16.5 [facility] Monocytes/100 WBC (Bld) 10.5 % 0-10 [facility] Neutrophils (Bld) [#/Vol] 4.0 10*3/uL 2.0-7.7 [facility] Neutrophils/100 WBC (Bld) 48.4 % 47-70 [facility] Potassium [Moles/Vol] 3.7 mmol/L 3.5-5.1 [facility] Protein [Mass/Vol] 7.2 g/dL 6.4-8.2 [facility] Sodium [Moles/Vol] 140 mmol/L 136-145 [facility] Triglyceride [Mass/Vol] 127 mg/dL <199 [facility] Comment on above: The drugs N-Acetylcy steine and Metamizole may falsely depress this assay.Serum Triglycerides Reference Interval Normal <150 mg/dL Borderline high 150 - 199 mg/dL High 200 - 499 mg/dL Very High > or = 500 mg/dL WBC (Bld) [#/Vol] 8.2 10*3/uL 4.4-11.0 [facility] Determination of erythrocyte mean corpuscular volume (MCV)Ordered By: Ja Cooley on 12-15-2023 MCV (RBC) [Entitic vol] 90.0 fL 80-94 [facility] Erythrocyte distribution wid th ratioOrdered By: Ja Cooley on 12-15-2023 Erythrocyte distribution width (RBC) [Ratio] 13.2 % 11.6-14.6 [facility] Erythrocyte distribution wid th standard deviationOrdered By: Ja Cooley on 12-15-2023 Erythrocyte distribution width (RBC) [Entitic vol] 43.5 fL 35.1-43.9 [facility] Hematocrit Auto (Bld) [Volum e fraction]Ordered By: Ja Cooley on 12-15-2023 Hematocrit (Bld) [Volume fraction] 46.1 % 40-54 [facility] High density lipoprotein (HD L) measurementOrdered By: Ja Cooley on 12-15-2023 Cholesterol in HDL (Body fld) [Mass/Vol] 50 mg/dL >40 [facility] Comment on above: The drugs N-Acetylcy steine and Metamizole may falsely depress this assay. Reference Range HDL <40 mg/dL Low HDL Cholesterol HDL >or= 60 mg/dL High HDL Cholesterol Immature granulocytes/100 WB C Auto (Bld)Ordered By: Ja Cooley on 12-15-2023 Immature granulocytes/100 WBC (Bld) 0.500 % 0.0-0.9 [facility] Comment on above: IG% - Immature Granu locytes (promyelocytes, myelocytes and metamyelocytes) > 1% indicates that a LEFT SHIFT is Present. Laboratory - Chemistry and C hemistry - challengeOrdered By: Ja Cooley on 12-15-2023 Albumin/Globulin [Mass ratio] 1.1 {ratio} 0.9-2.4 [facility] ALP [Catalytic activity/Vol] 67 U/L 45-117 [facility] ALT [Catalytic activity/Vol] 12 U/L 16-61 [facility] CO2 [Moles/Vol] 29.0 mmol/L 21.0-32.0 [facility] Globulin (S) [Mass/Vol] 3.5 g/dL 2.2-4.2 [facility] Magnesium [Mass/Vol] 1.9 mg/dL 1.6-2.6 [facility] Urea nitrogen/Creatinine [Mass ratio] 19.3 mg/mg 10-20 [facility] Laboratory - Hematology and Cell countsOrdered By: Ja Cooley on 12-15-2023 MCH (RBC) [Entitic mass] 29.9 pg 27.0-32.0 [facility] MCHC (RBC) [Mass/Vol] 33.2 g/dL 32-36 [facility] Nucleated RBC/100 WBC (Bld) [Ratio] 0 % 0-5 [facility] Platelets (Bld) [#/Vol] 240 10*3/uL 150-450 [facility] Low density lipoprotein (LDL ) cholesterol measurementOrdered By: aJ Cooley on 12-15-2023 Cholesterol in LDL (Body fld) [Moles/Vol] 61 mg/dL 0-130 [facility] No Panel InformationOrdered By: Ja Coolye on 12-15-2023 Estimated GFR (MDRD) Amer 101 mL/min >60 [facility] Comment on above: GFR Calc Estimated GFR (MDRD) Non-Af Amer 83 mL/min >60 [facility] Comment on above: Non- GFR Calc Platelet mean volume Parish-Ec ker (Bld) [Entitic vol]Ordered By: Ja Cooley on 12-15-2023 Platelet mean volume (Bld) [Entitic vol] 11.1 fL 6.2-12.0 [facility] RBC Auto (Bld) [#/Vol]Ordere d By: Ja Cooley on 12-15-2023 RBC (Bld) [#/Vol] 5.12 10*6/uL 4.6-6.2 [facility] Serum or plasma calcium walt urement (mass/volume)Ordered By: Ja Cooley on 12-15-2023 Calcium [Mass/Vol] 9.2 mg/dL 8.5-10.1 [facility] [place] Serum or plasma creatinine m easurement (mass/volume)Ordered By: Ja Cooley on 12-15-2023 Creatinine [Mass/Vol] 0.93 mg/dL 0.70-1.30 [facility] Comment on above: The validity of the calculated GFR & GFRAA in patients over 70 years has not been determined. Clinical correlation is essential. Serum or plasma thyroid stim ulating hormone (TSH) measurement (units/volume)Ordered By: Ja Cooley on 12-15-2023 TSH Qn 1.60 uIU/mL 0.358-3.74 [facility] Serum or plasma urea nitroge n measurement (mass/volume)Ordered By: Ja Cooley on 12-15-2023 Urea nitrogen [Mass/Vol] 18 mg/dL 7-18 [facility] Thin prep Papanicolaou smear with manual screeningOrdered By: Ja Cooley on 12-15-2023 Thin prep Papanicolaou smear with manual screening 3.7 g/dL 3.2-5.0 [facility] Thin prep Papanicolaou smear with manual screening 14 U/L 15-37 [facility] Thin prep Papanicolaou smear with manual screening 4 5-15 [facility] Very low density lipoprotein (VLDL) cholesterol measurementOrdered By: Ja Cooley on 12-15-2023 Cholesterol in VLDL Calc [Moles/Vol] 25 mg/dL 5-40 [facility] Whole blood hemoglobin A1c/t otal hemoglobin ratio (mass fraction)Ordered By: Ja Cooley on 12-15-2023 HbA1c (Bld) [Mass fraction] 5.9 % 3.8-5.6 [facility] Comment on above: Normal < 5.7 % Predi abetic 5.7 - 6.4 % Diabetic >or= 6.5 % Please note range changes. Albumin Elph [Mass/Vol]Order ed By: Vick Santo on 11-23-2023 Albumin [Mass/Vol] 3.6 g/dL 2.9-4.4 [facility] [place] Basophil percentageOrdered B y: Vick Santo on 11-23-2023 Basophil percentage Comment: . [facility] Comment on above: Presence of monoclon al protein is unclear at this time. Suggestrepeat in 3 to 6 months if clinically indicated.Performed at: [facility] [id number] Director: Vj Garcia PhD, Phone: [phone] Interpretation of serum or p lasma protein pattern by immunofixation (narrative resultOrdered By: Vick Santo on 11-23-2023 Protein Fractions Immunofixation Blanco [Interp] Not Observed g/dL Not Observed [facility] No Panel InformationOrdered By: Vick Santo on 11-23-2023 Addendum Document Comment . [facility] Comment on above: Protein electrophore sis scan will follow via computer,mail, or copy center operator delivery. Serum [id number] measu rement by electrophoresisOrdered By: Vick Santo on 11-23-2023 Alpha 1 globulin Elph [Mass/Vol] 0.4 g/dL 0.0-0.4 [facility] Alpha 1 globulin Elph [Mass/Vol] 1.0 g/dL 0.4-1.0 [facility] Serum globulin measurement ( mass/volume)Ordered By: Vick Santo on 11-23-2023 Globulin (S) [Mass/Vol] 3.1 g/dL 2.2-3.9 [facility] Serum or plasma IgA measurem ent (mass/volume)Ordered By: Vick Santo on 11-23-2023 IgA [Mass/Vol] 167 mg/dL 61-437 [facility] Serum or plasma IgG measurem ent (mass/volume)Ordered By: Vick Santo on 11-23-2023 IgG [Mass/Vol] 849 mg/dL [phone] [facility] Serum or plasma IgM measurem ent (mass/volume)Ordered By: Vick Santo on 11-23-2023 IgM [Mass/Vol] 91 mg/dL 15-143 [facility] Serum or plasma beta globuli n measurement by electrophoresis (mass/volume)Ordered By: Vick Santo on 11-23-2023 Beta globulin Elph [Mass/Vol] 1.0 g/dL 0.7-1.3 [facility] Serum or plasma gamma globul in measurement by electrophoresis (mass/volume)Ordered By: Vick Santo on 11-23-2023 Gamma globulin Elph [Mass/Vol] 0.7 g/dL 0.4-1.8 [facility] Serum or plasma immunoelectr ophoresis interpretation (nominal result)Ordered By: Vick Santo on 11-23-2023 Interpretation IEP [Interp] Comment . [facility] Comment on above: No monoclonality det ected. Thin prep Papanicolaou smear with manual screeningOrdered By: Vick Santo on 11-23-2023 Thin prep Papanicolaou smear with manual screening 1.2 0.7-1.7 [facility] Total protein bloodOrdered B y: Vick Santo on 11-23-2023 Protein [Mass/Vol] 6.7 g/dL 6.0-8.5 [facility] [place] Basophil percentageOrdered B y: Natasha Gregory on 10-31-2023 Chloride [Moles/Vol] 107 mmol/L 98-107 [facility] Glucose [Mass/Vol] 102 mg/dL 74-106 [facility] [place] Comment on above: Fasting Glucose resu lt from 100 to 125 mg/dL suggests IMPAIRED HOMEOSTASIS per A.D.A. criteria. Potassium [Moles/Vol] 3.6 mmol/L 3.5-5.1 [facility] Sodium [Moles/Vol] 142 mmol/L 136-145 [facility] [place] Laboratory - Chemistry and C hemistry - challengeOrdered By: Natasha Gregory on 10-31-2023 ALT [Catalytic activity/Vol] 11 U/L 16-61 [facility] CO2 [Moles/Vol] 28.0 mmol/L 21.0-32.0 [facility] Urea nitrogen/Creatinine [Mass ratio] 22.7 mg/mg 10-20 [facility] No Panel InformationOrdered By: Natasha Gregory on 10-31-2023 Estimated GFR (MDRD) Amer 101 mL/min >60 [facility] Comment on above: GFR Calc Estimated GFR (MDRD) Non-Af Amer 84 mL/min >60 [facility] Comment on above: Non- GFR Calc Serum or plasma calcium walt urement (mass/volume)Ordered By: Natasha Gregory on 10-31-2023 Calcium [Mass/Vol] 8.8 mg/dL 8.5-10.1 [facility] [place] Serum or plasma creatinine m easurement (mass/volume)Ordered By: Natasha Gregory on 10-31-2023 Creatinine [Mass/Vol] 0.93 mg/dL 0.70-1.30 [facility] Comment on above: The validity of the calculated GFR & GFRAA in patients over 70 years has not been determined. Clinical correlation is essential. Serum or plasma urea nitroge n measurement (mass/volume)Ordered By: Natasha Gregory on 10-31-2023 Urea nitrogen [Mass/Vol] 21 mg/dL 7-18 [facility] Thin prep Papanicolaou smear with manual screeningOrdered By: Natasha Gregory on 10-31-2023 Thin prep Papanicolaou smear with manual screening 10 U/L 15-37 [facility] Thin prep Papanicolaou smear with manual screening 7 5-15 [facility] Whole blood hemoglobin A1c/t otal hemoglobin ratio (mass fraction)Ordered By: Natasha Gregory on 10-31-2023 HbA1c (Bld) [Mass fraction] 5.7 % 3.8-5.6 [facility] Comment on above: Normal < 5.7 % Predi abetic 5.7 - 6.4 % Diabetic >or= 6.5 % Please note range changes. Basophil percentageOrdered B y: Natasha Gregory on 08-03-2023 Chloride [Moles/Vol] 108 mmol/L 98-107 [facility] Cholesterol [Mass/Vol] 127 mg/dL <200 [facility] Comment on above: <200 mg/dL Desirable 200-240 mg/dL Borderline >240 mg/dL High Risk Glucose [Mass/Vol] 66 mg/dL 74-106 [facility] [place] Potassium [Moles/Vol] 3.5 mmol/L 3.5-5.1 [facility] Sodium [Moles/Vol] 139 mmol/L 136-145 [facility] [place] Triglyceride [Mass/Vol] 101 mg/dL <199 [facility] Comment on above: The drugs N-Acetylcy steine and Metamizole may falsely depress this assay.Serum Triglycerides Reference Interval Normal <150 mg/dL Borderline high 150 - 199 mg/dL High 200 - 499 mg/dL Very High > or = 500 mg/dL Laboratory - Chemistry and C hemistry - challengeOrdered By: Natasha Gregory on 08-03-2023 ALT [Catalytic activity/Vol] 11 U/L 16-61 [facility] CO2 [Moles/Vol] 26.0 mmol/L 21.0-32.0 [facility] Urea nitrogen/Creatinine [Mass ratio] 19.8 mg/mg 10-20 [facility] No Panel InformationOrdered By: Natasha Gregory on 08-03-2023 Urine Microalbumin/Creatinine Ratio 14.9 mg/g CRE <30 [facility] Estimated GFR (MDRD) Amer 97 mL/min >60 [facility] Comment on above: GFR Calc Estimated GFR (MDRD) Non-Af Amer 81 mL/min >60 [facility] Comment on above: Non- GFR Calc Thyroid Stimulating Hormone (TSH) 1.96 uIU/mL 0.358-3.74 [facility] Serum or plasma calcium walt urement (mass/volume)Ordered By: Natasha Gregory on 08-03-2023 Calcium [Mass/Vol] 9.0 mg/dL 8.5-10.1 [facility] [place] Serum or plasma cholesterol in HDL measurement (mass/volume)Ordered By: Natasha Gregory on 08-03-2023 Cholesterol in HDL [Mass/Vol] 49 mg/dL >40 [facility] Comment on above: The drugs N-Acetylcy steine and Metamizole may falsely depress this assay. Reference Range HDL <40 mg/dL Low HDL Cholesterol HDL >or= 60 mg/dL High HDL Cholesterol Serum or plasma cholesterol in VLDL measurement (mass/volume)Ordered By: Natasha Gregory on 08-03-2023 Cholesterol in VLDL [Mass/Vol] 20 mg/dL 5-40 [facility] Serum or plasma creatinine m easurement (mass/volume)Ordered By: Natasha Gregory on 08-03-2023 Creatinine [Mass/Vol] 0.96 mg/dL 0.70-1.30 [facility] Comment on above: The validity of the calculated GFR & GFRAA in patients over 70 years has not been determined. Clinical correlation is essential. Serum or plasma low density lipoprotein (LDL) cholesterol measurement (mass/volume)Ordered By: Natasha Gregory on 08-03-2023 Cholesterol in LDL [Mass/Vol] 58 mg/dL 0-130 [facility] Serum or plasma urea nitroge n measurement (mass/volume)Ordered By: Natasha Gregory on 08-03-2023 Urea nitrogen [Mass/Vol] 19 mg/dL 7-18 [facility] Thin prep Papanicolaou smear with manual screeningOrdered By: Natasha Gregory on 08-03-2023 Thin prep Papanicolaou smear with manual screening 18.2 mg/L NO RANGE EST. [facility] Thin prep Papanicolaou smear with manual screening 9 U/L 15-37 [facility] Thin prep Papanicolaou smear with manual screening 5 5-15 [facility] Urine creatinine measurement (mass/volume)Ordered By: Natasha Gregory on 08-03-2023 Creatinine (U) [Mass/Vol] 122.00 mg/dL NO RANGE EST. [facility] Whole blood hemoglobin A1c/t otal hemoglobin ratio (mass fraction)Ordered By: Natasha Gregory on 08-03-2023 HbA1c (Bld) [Mass fraction] 6.2 % 3.8-5.6 [facility] Comment on above: Normal < 5.7 % Predi abetic 5.7 - 6.4 % Diabetic >or= 6.5 % Please note range changes. Basophil percentageOrdered B y: Dr. Santo on 05-09-2023 WBC (Bld) [#/Vol] 10.2 10*3/uL 4.4-11.0 [facility] Blood erythrocytes count (nu mber/volume)Ordered By: Dr. Santo on 05-09-2023 RBC (Bld) [#/Vol] 4.60 10*6/uL 4.6-6.2 [facility] Blood hemoglobin measurement (mass/volume)Ordered By: Dr. Santo on 05-09-2023 Hemoglobin (Bld) [Mass/Vol] 14.1 g/dL 13.0-16.5 [facility] Blood platelet mean volumeOr dered By: Dr. Santo on 05-09-2023 Platelet mean volume (Bld) [Entitic vol] 10.7 fL 6.2-12.0 [facility] Determination of erythrocyte mean corpuscular volume (MCV)Ordered By: Dr. Santo on 05-09-2023 MCV (RBC) [Entitic vol] 90.9 fL 80-94 [facility] Hematocrit Auto (Bld) [Volum e fraction]Ordered By: Dr. Santo on 05-09-2023 Hematocrit (Bld) [Volume fraction] 41.8 % 40-54 [facility] Laboratory - Chemistry and C hemistry - challengeOrdered By: Dr. Santo on 05-09-2023 Cobalamin (Vitamin B12) [Mass/Vol] 281 pg/mL 211-911 [facility] Laboratory - Hematology and Cell countsOrdered By: Dr. Santo on 05-09-2023 Erythrocyte distribution width (RBC) [Entitic vol] 44.1 fL 35.1-43.9 [facility] [place] Erythrocyte distribution width (RBC) [Ratio] 13.3 % 11.6-14.6 [facility] MCH (RBC) [Entitic mass] 30.7 pg 27.0-32.0 [facility] MCHC Auto (RBC) [Mass/Vol]Or dered By: Dr. Santo on 05-09-2023 MCHC (RBC) [Mass/Vol] 33.7 g/dL 32-36 [facility] No Panel InformationOrdered By: Vick Santo on 05-09-2023 Free Lambda Light Chains, Quant 20.2 mg/L 5.7-26.3 [facility] Whole Blood Vitamin B1 Level 118.1 nmol/L 66.5-200.0 [facility] Comment on above: Performed at: [facility] [id number] [place], [place] [id number] Director: Vj Garcia PhD, Phone: [phone] at: - [facility] [id number] [place], [place] [id number] Director: Sherine Mendez MD, Phone: [phone] No Panel InformationOrdered By: Dr. Santo on 05-09-2023 Thyroid Stimulating Hormone (TSH) 2.11 uIU/mL 0.358-3.74 [facility] Platelets bldOrdered By: Dr. Santo on 05-09-2023 Platelets (Bld) [#/Vol] 285 10*3/uL 150-450 [facility] Serum immunoglobulin kappa l ight chains/immunoglobulin lambda light chains mass ratioOrdered By: Vick Santo on 05-09-2023 Immunoglobulin light chains.kappa/Immunoglobul in light chains.lambda (S) [Mass ratio] 1.69 0.26-1.65 [facility] Serum or plasma folate measu rement (mass/volume)Ordered By: Dr. Santo on 05-09-2023 Folate [Mass/Vol] 11.40 ng/mL 3.1-55.4 [facility] [place] Serum or plasma immunoglobul in kappa light chains measurement (mass/volume)Ordered By: Vick Santo on 05-09-2023 Immunoglobulin light chains.kappa [Mass/Vol] 34.1 mg/L 3.3-19.4 [facility] Basophil percentageOrdered B y: Dr. Gregory on 05-01-2023 Chloride [Moles/Vol] 107 mmol/L 98-107 [facility] Glucose [Mass/Vol] 98 mg/dL 74-106 [facility] [place] Potassium [Moles/Vol] 3.8 mmol/L 3.5-5.1 [facility] Sodium [Moles/Vol] 140 mmol/L 136-145 [facility] [place] Laboratory - Chemistry and C hemistry - challengeOrdered By: Dr. Gregory on 05-01-2023 ALT [Catalytic activity/Vol] 13 U/L 16-61 [facility] CO2 [Moles/Vol] 26.0 mmol/L 21.0-32.0 [facility] Urea nitrogen/Creatinine [Mass ratio] 23.4 mg/mg 10-20 [facility] No Panel InformationOrdered By: Dr. Gregory on 05-01-2023 Estimated GFR (MDRD) Amer 95 mL/min >60 [facility] Comment on above: GFR Calc Estimated GFR (MDRD) Non-Af Amer 78 mL/min >60 [facility] Comment on above: Non- GFR Calc Serum or plasma calcium walt urement (mass/volume)Ordered By: Dr. Gregory on 05-01-2023 Calcium [Mass/Vol] 9.0 mg/dL 8.5-10.1 [facility] [place] Serum or plasma creatinine m easurement (mass/volume)Ordered By: Dr. Gregory on 05-01-2023 Creatinine [Mass/Vol] 0.98 mg/dL 0.70-1.30 [facility] Comment on above: The validity of the calculated GFR & GFRAA in patients over 70 years has not been determined. Clinical correlation is essential. Serum or plasma urea nitroge n measurement (mass/volume)Ordered By: Dr. Gregory on 05-01-2023 Urea nitrogen [Mass/Vol] 23 mg/dL 7-18 [facility] Thin prep Papanicolaou smear with manual screeningOrdered By: Dr. Gregory on 05-01-2023 Thin prep Papanicolaou smear with manual screening 12 U/L 15-37 [facility] Thin prep Papanicolaou smear with manual screening 7 5-15 [facility] Whole blood hemoglobin A1c/t otal hemoglobin ratio (mass fraction)Ordered By: Dr. Gregory on 05-01-2023 HbA1c (Bld) [Mass fraction] 6.2 % 3.8-5.6 [facility] Comment on above: Normal < 5.7 % Predi abetic 5.7 - 6.4 % Diabetic >or= 6.5 % Please note range changes. Absolute lymphocyte countOrd ered By: Dr. Cooley on 02-21-2023 Lymphocytes Auto (Unsp spec) [#/Vol] 3.36 10*3/uL 0.83-4.51 [facility] Basophil percentageOrdered B y: Dr. Cooley on 02-21-2023 Basophils/100 WBC (Bld) 0.7 % 0-1 [facility] Bilirubin [Mass/Vol] 0.60 mg/dL 0.20-1.00 [facility] Comment on above: For patients on eltr ombopag therapy, use of Dimension Benge TBIL is not recommended. Chloride [Moles/Vol] 104 mmol/L 98-107 [facility] Cholesterol [Mass/Vol] 133 mg/dL <200 [facility] Comment on above: <200 mg/dL Desirable 200-240 mg/dL Borderline >240 mg/dL High Risk Eosinophils/100 WBC (Bld) 1.5 % 0-5 [facility] Glucose [Mass/Vol] 232 mg/dL 74-106 [facility] [place] Comment on above: Glucose result great er than or equal to 200 mg/dLsuggests DIABETES MELLITUS per A.D.A. criteria. Neutrophils (Bld) [#/Vol] 5.4 10*3/uL 2.0-7.7 [facility] Neutrophils/100 WBC (Bld) 53.2 % 47-70 [facility] Potassium [Moles/Vol] 4.0 mmol/L 3.5-5.1 [facility] Protein [Mass/Vol] 6.8 g/dL 6.4-8.2 [facility] Sodium [Moles/Vol] 137 mmol/L 136-145 [facility] [place] Triglyceride [Mass/Vol] 117 mg/dL <199 [facility] Comment on above: The drugs N-Acetylcy steine and Metamizole may falsely depress this assay.Serum Triglycerides Reference Interval Normal <150 mg/dL Borderline high 150 - 199 mg/dL High 200 - 499 mg/dL Very High > or = 500 mg/dL WBC (Bld) [#/Vol] 10.1 10*3/uL 4.4-11.0 [facility] Blood erythrocytes count (nu mber/volume)Ordered By: Dr. Cooley on 02-21-2023 RBC (Bld) [#/Vol] 4.56 10*6/uL 4.6-6.2 [facility] Blood hemoglobin measurement (mass/volume)Ordered By: Dr. Cooley on 02-21-2023 Hemoglobin (Bld) [Mass/Vol] 14.0 g/dL 13.0-16.5 [facility] Blood lymphocytes/100 leukoc ytesOrdered By: Dr. Cooley on 02-21-2023 Lymphocytes/100 WBC (Bld) 33.3 % 19-41 [facility] Blood monocytes/100 leukocyt esOrdered By: Dr. Cooley on 02-21-2023 Monocytes/100 WBC (Bld) 10.4 % 0-10 [facility] Blood platelet mean volumeOr dered By: Dr. Cooley on 02-21-2023 Platelet mean volume (Bld) [Entitic vol] 10.2 fL 6.2-12.0 [facility] Determination of erythrocyte mean corpuscular volume (MCV)Ordered By: Dr. Cooley on 02-21-2023 MCV (RBC) [Entitic vol] 92.5 fL 80-94 [facility] Hematocrit Auto (Bld) [Volum e fraction]Ordered By: Dr. Cooley on 02-21-2023 Hematocrit (Bld) [Volume fraction] 42.2 % 40-54 [facility] Laboratory - Chemistry and C hemistry - challengeOrdered By: Dr. Cooley on 02-21-2023 ALP [Catalytic activity/Vol] 68 U/L 45-117 [facility] ALT [Catalytic activity/Vol] 19 U/L 16-61 [facility] CO2 [Moles/Vol] 27.0 mmol/L 21.0-32.0 [facility] Globulin (S) [Mass/Vol] 3.4 g/dL 2.2-4.2 [facility] Magnesium [Mass/Vol] 1.9 mg/dL 1.6-2.6 [facility] Urea nitrogen/Creatinine [Mass ratio] 27.1 mg/mg 10-20 [facility] Laboratory - Hematology and Cell countsOrdered By: Dr. Cooley on 02-21-2023 Erythrocyte distribution width (RBC) [Entitic vol] 47.2 fL 35.1-43.9 [facility] Erythrocyte distribution width (RBC) [Ratio] 14.0 % 11.6-14.6 [facility] Immature granulocytes/100 WBC (Bld) 0.900 % 0.0-0.9 [facility] Comment on above: IG% - Immature Granu locytes (promyelocytes, myelocytes and metamyelocytes) > 1% indicates that a LEFT SHIFT is Present. MCH (RBC) [Entitic mass] 30.7 pg 27.0-32.0 [facility] Nucleated RBC/100 WBC (Bld) [Ratio] 0 % 0-5 [facility] MCHC Auto (RBC) [Mass/Vol]Or dered By: Dr. Cooley on 02-21-2023 MCHC (RBC) [Mass/Vol] 33.2 g/dL 32-36 [facility] No Panel InformationOrdered By: Dr. Cooley on 02-21-2023 Estimated GFR (MDRD) Amer 93 mL/min >60 [facility] Comment on above: GFR Calc Estimated GFR (MDRD) Non-Af Amer 77 mL/min >60 [facility] Comment on above: Non- GFR Calc Thyroid Stimulating Hormone (TSH) 1.59 uIU/mL 0.358-3.74 [facility] Urine Microalbumin/Creatinine Ratio 10.3 mg/g CRE <30 [facility] Platelets bldOrdered By: Dr. Cooley on 02-21-2023 Platelets (Bld) [#/Vol] 330 10*3/uL 150-450 [facility] Serum or plasma albumin walt urement (mass/volume)Ordered By: Dr. Cooley on 02-21-2023 Albumin [Mass/Vol] 3.4 g/dL 3.2-5.0 [facility] Serum or plasma albumin/glob ulin mass ratioOrdered By: Dr. Cooley on 02-21-2023 Albumin/Globulin [Mass ratio] 1.0 {ratio} 0.9-2.4 [facility] Serum or plasma calcium walt urement (mass/volume)Ordered By: Dr. Cooley on 02-21-2023 Calcium [Mass/Vol] 9.1 mg/dL 8.5-10.1 [facility] Serum or plasma cholesterol in HDL measurement (mass/volume)Ordered By: Dr. Cooley on 02-21-2023 Cholesterol in HDL [Mass/Vol] 52 mg/dL >40 [facility] Comment on above: The drugs N-Acetylcy steine and Metamizole may falsely depress this assay. Reference Range HDL <40 mg/dL Low HDL Cholesterol HDL >or= 60 mg/dL High HDL Cholesterol Serum or plasma cholesterol in VLDL measurement (mass/volume)Ordered By: Dr. Cooley on 02-21-2023 Cholesterol in VLDL [Mass/Vol] 23 mg/dL 5-40 [facility] Serum or plasma creatinine m easurement (mass/volume)Ordered By: Dr. Cooley on 02-21-2023 Creatinine [Mass/Vol] 1.00 mg/dL 0.70-1.30 [facility] Comment on above: The validity of the calculated GFR & GFRAA in patients over 70 years has not been determined. Clinical correlation is essential. Serum or plasma low density lipoprotein (LDL) cholesterol measurement (mass/volume)Ordered By: Dr. Cooley on 02-21-2023 Cholesterol in LDL [Mass/Vol] 58 mg/dL 0-130 [facility] Serum or plasma urea nitroge n measurement (mass/volume)Ordered By: Dr. Cooley on 02-21-2023 Urea nitrogen [Mass/Vol] 27 mg/dL 7-18 [facility] Thin prep Papanicolaou smear with manual screeningOrdered By: Dr. Cooley on 02-21-2023 Thin prep Papanicolaou smear with manual screening 9 U/L 15-37 [facility] Thin prep Papanicolaou smear with manual screening 6 5-15 [facility] Thin prep Papanicolaou smear with manual screening 11.9 mg/L NO RANGE EST. [facility] Urine creatinine measurement (mass/volume)Ordered By: Dr. Cooley on 02-21-2023 Creatinine (U) [Mass/Vol] 115.00 mg/dL NO RANGE EST. [facility] Whole blood hemoglobin A1c/t otal hemoglobin ratio (mass fraction)Ordered By: Dr. Cooley on 02-21-2023 HbA1c (Bld) [Mass fraction] 6.4 % 3.8-5.6 [facility] Comment on above: Normal < 5.7 % Predi abetic 5.7 - 6.4 % Diabetic >or= 6.5 % Please note range changes. [facility] LUIS ARMAND[facility] GRIFFITH ([id number]) 1945 M Date Time Provider Department 02/14/23 [...] is very concerned. Please call her at [phone]. Raeann Harrison, MISAEL 02/14/2023 3:05 PM Signed Received voicemail from patients' on Mon02/14/2023 2:28 PM Transcript below: This is Brennen Griffith. My phone number is [phone]. I'm calling for my Luis Armando Griffith. [...] call at your earliest convenience. Thank you. Kemare. Message shared with CAR for further guidance. [...] mg tablet (more content not included)... Normal [facility]le 01-10-2023 JU[facility] Telephone (NIKOS) LUIS ARMANDO GRIFFITH ([id number]) 1945 M Date Time Provider Department 01/10/23 JAYLYN NIEVES During your visit today, we recorded the following information about you: Grace Sibley RN 01/10/2023 4:24 PM Signed Voicemail received January 10, 2023 [id number] My name is Brennenignacio Griffith. My phone number is [phone]. My 's name is Luis Armando Griffith. [...] is Brennen Griffith. My phone number is [phone]. This is in regard to Luis Armando [...] 50 MCG, 2,000 UNIT, GUMMIES) - fluticasone wpfayks-kckqwbhejqtg-pk lanterol (TRELEGY ELLIPTA) 200-62.5-25 mcg powder inhaler [...] Status:Closed by KAREN PARRA on 01/13/[address] [facility] Ignacio Basophil percentageOrdered B y: Dr. Gregory on 01-04-2023 Chloride [Moles/Vol] 106 mmol/L 98-107 [facility] Cholesterol [Mass/Vol] 139 mg/dL <200 [facility] Comment on above: <200 mg/dL Desirable 200-240 mg/dL Borderline >240 mg/dL High Risk Glucose [Mass/Vol] 55 mg/dL 74-106 [facility] [place] Potassium [Moles/Vol] 3.9 mmol/L 3.5-5.1 [facility] Sodium [Moles/Vol] 143 mmol/L 136-145 [facility] [place] Triglyceride [Mass/Vol] 133 mg/dL <199 [facility] Comment on above: The drugs N-Acetylcy steine and Metamizole may falsely depress this assay.Serum Triglycerides Reference Interval Normal <150 mg/dL Borderline high 150 - 199 mg/dL High 200 - 499 mg/dL Very High > or = 500 mg/dL Laboratory - Chemistry and C hemistry - challengeOrdered By: Dr. Gregory on 01-04-2023 ALT [Catalytic activity/Vol] 12 U/L 16-61 [facility] CO2 [Moles/Vol] 27.0 mmol/L 21.0-32.0 [facility] Urea nitrogen/Creatinine [Mass ratio] 25.1 mg/mg 10-20 [facility] No Panel InformationOrdered By: Dr. Gregory on 01-04-2023 Estimated GFR (MDRD) Amer 98 mL/min >60 [facility] Comment on above: GFR Calc Estimated GFR (MDRD) Non-Af Amer 81 mL/min >60 [facility] Comment on above: Non- GFR Calc Serum or plasma calcium walt urement (mass/volume)Ordered By: Dr. Gregory on 01-04-2023 Calcium [Mass/Vol] 8.9 mg/dL 8.5-10.1 [facility] [place] Serum or plasma cholesterol in HDL measurement (mass/volume)Ordered By: Dr. Gregory on 01-04-2023 Cholesterol in HDL [Mass/Vol] 44 mg/dL >40 [facility] Comment on above: The drugs N-Acetylcy steine and Metamizole may falsely depress this assay. Reference Range HDL <40 mg/dL Low HDL Cholesterol HDL >or= 60 mg/dL High HDL Cholesterol Serum or plasma cholesterol in VLDL measurement (mass/volume)Ordered By: Dr. Gregory on 01-04-2023 Cholesterol in VLDL [Mass/Vol] 27 mg/dL 5-40 [facility] Serum or plasma creatinine m easurement (mass/volume)Ordered By: Dr. Gregory on 01-04-2023 Creatinine [Mass/Vol] 0.96 mg/dL 0.70-1.30 [facility] Comment on above: The validity of the calculated GFR & GFRAA in patients over 70 years has not been determined. Clinical correlation is essential. Serum or plasma low density lipoprotein (LDL) cholesterol measurement (mass/volume)Ordered By: Dr. Gregory on 01-04-2023 Cholesterol in LDL [Mass/Vol] 68 mg/dL 0-130 [facility] Serum or plasma urea nitroge n measurement (mass/volume)Ordered By: Dr. Gregory on 01-04-2023 Urea nitrogen [Mass/Vol] 24 mg/dL 7-18 [facility] Thin prep Papanicolaou smear with manual screeningOrdered By: Dr. Gregory on 01-04-2023 Thin prep Papanicolaou smear with manual screening 16 U/L 15-37 [facility] Thin prep Papanicolaou smear with manual screening 10 5-15 [facility] Whole blood hemoglobin A1c/t otal hemoglobin ratio (mass fraction)Ordered By: Dr. Gregory on 01-04-2023 HbA1c (Bld) [Mass fraction] 6.3 % 3.8-5.6 [facility] Comment on above: Normal < 5.7 % Predi abetic 5.7 - 6.4 % Diabetic >or= 6.5 % Please note range changes. CNOVon 12-12-2022 CNOV Office Visit (NRMDN) LUIS ARMANDO GRIFFITH ([id number]) 1945 M Date Time Provider Department 12/12/22 2:00 PM GARY RUIZ SEAN During your visit today, we recorded the following information about you: Weight Height 118.3 kg 1.778 m Gary Ruiz APRN.YOUTH CAREER SPECIALIST 12/13/2022 10:48 PM Signed [facility] - FOLLOW UP EVALUATION Ja Cooley MD [address] [facility] [facility] [address] Dear Ja Cooley MD: I had the [...] Flowsheet Row OT/PT/Speech Visit from 10/04/2022 in [facility] OT/PT/Speech Visit from 08/25/2022 in [facility] Global Physical [...] Current Outpa (more content not included)... [facility] LU[facility] GRIFF[facility] ([id number]) 1945 M Date Time Provider Department 10/10/22 JAYLYN NIEVES During your visit today, we recorded the following information about you: Mary Harrison RN 10/10/2022 2:45 PM Signed Received voicemail from patient on Mon10/10/2022 9:09 AM Transcript below: Morning this is Luis Armando Griffith and my phone number is [phone]. I calling to find out if there's [...] Voicemail left directing patient to a detailed [employer] message. Requested reply via MC or RCTO. Provided office number. Message shared with covering provider as KA is HUGO. Mary Harrison, YVONNE, RN October 10, 2022 [...] tablet by mouth twice daily. - fluticasone bmtyuum-iiygvpwwbvdm-bn lanterol (TRELEGY ELLIPTA) 200-62.5-25 mcg powder inhaler [...] Encounter Status:Closed by MARY HARRISON on 10/10/22 [facility] CNTHERAPYon 10-04-2022 CNTHERAPY OT/PT/Speech Visit (PTMDRG) LUIS ARMANDO GRIFFITH ([id number]) 1945 M Date Time Provider Department 10/04/22 11:30 AM WILLIS RYDER Date Time Provider Department Center 10/04/2022 11:30 AM [id number] RYDER [facility] Reason for Visit: [...] 50 MCG, 2,000 UNIT, GUMMIES) - fluticasone lfwmnzz-wkjvvejgvfun-et lanterol (TRELEGY ELLIPTA) 200-62.5-25 mcg powder inhaler [...] 80 mg by mouth once daily. Normal [facility] Basophil percentageOrdered B y: Dr. Gregory on 09-16-2022 Chloride [Moles/Vol] 105 mmol/L 98-107 [facility] Glucose [Mass/Vol] 142 mg/dL 74-106 [facility] [place] Comment on above: Fasting Glucose resu lt greater than or equal to 126 mg/dL suggests DIABETES MELLITUS per A.D.A. criteria. Potassium [Moles/Vol] 3.8 mmol/L 3.5-5.1 [facility] Sodium [Moles/Vol] 137 mmol/L 136-145 [facility] [place] Laboratory - Chemistry and C hemistry - challengeOrdered By: Dr. Gregory on 09-16-2022 ALT [Catalytic activity/Vol] 13 U/L 16-61 [facility] CO2 [Moles/Vol] 24.0 mmol/L 21.0-32.0 [facility] Urea nitrogen/Creatinine [Mass ratio] 24.0 mg/mg 10-20 [facility] No Panel InformationOrdered By: Dr. Gregory on 09-16-2022 Estimated GFR (MDRD) Amer 89 mL/min >60 [facility] Comment on above: GFR Calc Estimated GFR (MDRD) Non-Af Amer 73 mL/min >60 [facility] Comment on above: Non- GFR Calc Thyroid Stimulating Hormone (TSH) 1.71 uIU/mL 0.358-3.74 [facility] Serum or plasma calcium walt urement (mass/volume)Ordered By: Dr. Gregory on 09-16-2022 Calcium [Mass/Vol] 9.4 mg/dL 8.5-10.1 [facility] [place] Serum or plasma creatinine m easurement (mass/volume)Ordered By: Dr. Gregory on 09-16-2022 Creatinine [Mass/Vol] 1.04 mg/dL 0.70-1.30 [facility] Comment on above: The validity of the calculated GFR & GFRAA in patients over 70 years has not been determined. Clinical correlation is essential. Serum or plasma urea nitroge n measurement (mass/volume)Ordered By: Dr. Gregory on 09-16-2022 Urea nitrogen [Mass/Vol] 25 mg/dL 7-18 [facility] Thin prep Papanicolaou smear with manual screeningOrdered By: Dr. Gregory on 09-16-2022 Thin prep Papanicolaou smear with manual screening 13 U/L 15-37 [facility] Thin prep Papanicolaou smear with manual screening 8 5-15 [facility] Whole blood hemoglobin A1c/t otal hemoglobin ratio (mass fraction)Ordered By: Dr. Gregory on 09-16-2022 HbA1c (Bld) [Mass fraction] 6.5 % 3.8-5.6 [facility] Comment on above: Normal < 5.7 % Predi abetic 5.7 - 6.4 % Diabetic >or= 6.5 % Please note range changes. CNTHERAPYon 09-15-2022 CNTHERAPY OT/PT/Speech Visit (PTMDRG) LUIS ARMANDO GRIFFITH ([id number]) 1945 M Date Time Provider Department 09/15/22 4:00 PM WILLIS RYDER Date Time Provider Department Center 09/15/2022 4:00 PM [id number] RYDER [facility] Reason for Visit: [...] tablet by mouth twice daily. - fluticasone xmspbpv-nsesnftpbxts-qs lanterol (TRELEGY ELLIPTA) 200-62.5-25 mcg powder inhaler [...] Take 80 mg by mouth once daily. [facility] 09-12-2022 [facility] Telephone (NREUS2) LUIS ARMANDO GRIFFITH ([id number]) 1945 M Date Time Provider Department 09/12/22 JAYLYN NIEVES NREUS2 During your visit today, we recorded the following information about you: Lena Gallo [facility] 09/12/2022 2:37 PM Signed NI PHONE NAME OF CALLER: Brennen RELATIONSHIP TO PATIENT: spouse PATIENT ID'D BY NAME/: yes REASON FOR CALL: States that his PD symptoms are worsening and she would like to speak with Stefania. CALLBACK #: [phone] OK TO LEAVE MESSAGE: ok only on [...] update the office as needed. YVONNE Naik, MISAEL September 14, 2022 2:42 PM Mary Harrison [...] for RCTO and option to message via [employer]. YVONNE Naik, RN September 16, 2022 8:48 [...] mg tablet (more content not included)... Normal [facility] CNTHERAPYon 08-25-2022 CNTHERAPY OT/PT/Speech Visit (PTMDRG) LUIS ARMANDO GRIFFITH ([id number]) 1945 M Date Time Provider Department 08/25/22 5:30 PM WILLIS RYDER Date Time Provider Department Center 08/25/2022 5:30 PM [id number] RYDER [facility] Reason for Visit: [...] tablet by mouth twice daily. - fluticasone xqbmona-opzuprdohblf-tm lanterol (TRELEGY ELLIPTA) 200-62.5-25 mcg powder inhaler [...] 80 mg by mouth once daily. Normal [facility] CNTHERAPYon 08-11-2022 CNTHERAPY OT/PT/Speech Visit (PTMDRG) LUIS ARMANDO GRIFFITH ([id number]) 1945 M Date Time Provider Department 08/11/22 1:00 PM WILLIS RYDER Date Time Provider Department Center 08/11/2022 1:00 PM [id number] RYDER [facility] Reason for Visit: PT [...] tablet by mouth twice daily. - fluticasone rzirujx-apuocjdxohat-dg lanterol (TRELEGY ELLIPTA) 200-62.5-25 mcg powder inhaler [...] Take 80 mg by mouth once daily. [facility] 08-04-2022 [facility] Office Visit (SOHAN) LUIS ARMANDO GRIFFITH ([id number]) 1945 M Date Time Provider Department 08/04/22 2:00 PM JAYLYN NIEVES During your visit today, we recorded the following information about you: Pulse Respiration Blood pressure 107/minute 16/minute 109/86 Jaylyn Nieves MD 08/04/2022 5:35 PM Signed [facility] - FOLLOW UP EVALUATION Ja Cooley MD [address] [facility] [address] I had the pleasure of seeing Mr. [...] 1 tablet by mouth twice daily. fluticasone hxihmcs-msatyycjibdm-zn lanterol (TRELEGY ELLIPTA) 200-62.5-25 mcg powder inhaler Inhale 1 Puff as instructed once daily. aspirin, enteric coated (ASPIRIN, ENTERIC COATED) 81 mg EC tablet Take 81 mg by mouth once daily. tamsulosin (FLOMAX) 0.4 mg Take 0.4 m (more content not included)... Normal [facility] No Panel Informationon 08-01 Prostate Specific Antigen Screen 5.11 ng/mL 0.00-4.00 [facility] Work Phone: Comment on above: This test was perfor med using the TPSA assay method for theAccumulate chemistry system. Values obtained with differentassay methods cannot be used interchangably.When changing PSA assays in the course of monitoring apatient, additional sequential testing should be carriedout to confirm baseline values. [facility]20[facility] LUIS ARMAND[facility] GRIFFITH Khushbu ([id number]) 1945 M Date Time Provider Department 07/21/22 JAYLYN NIEVES During your visit today, we recorded the following information about you: Mary Harrison RN 07/21/2022 1:09 PM Signed Received voicemail from patient's on Rosalia 07/21/2022 10:52 AM Transcript below: Kaila my name is Brennen Griffith. My 's name is Luis Armando Griffith. He is a patient of Dr. Gordillo. My phone number is [phone]. I'm calling to speak to somebody regarding [...] Updates shared with MD CAR AND JANY, METROLOGY TECHNICIAN. If any guidance is suggested, RN will [...] Status:Closed by MARY HARRISON on 07/21/22 Normal [facility] No Panel Informationon 06-21 Urine Microalbumin/Creatinine Ratio 12.4 mg/g CRE <30 [facility] Work Phone: Thin prep Papanicolaou smear with manual screeningon 06-21-2022 Thin prep Papanicolaou smear with manual screening 17.8 mg/L NO RANGE EST. [facility] Work Phone: Urine creatinine measurement (mass/volume)on 06-21-2022 Creatinine (U) [Mass/Vol] 144.00 mg/dL NO RANGE EST. [facility] Work Phone: Basophil percentageon 2021 Chloride [Moles/Vol] 102 mmol/L 98-107 [facility] Work Phone: Cholesterol [Mass/Vol] 140 mg/dL <200 [facility] Work Phone: Comment on above: <200 mg/dL Desirable 200-240 mg/dL Borderline >240 mg/dL High Risk Glucose [Mass/Vol] 224 mg/dL 74-106 [facility] Work Phone: Comment on above: Glucose result great er than or equal to 200 mg/dLsuggests DIABETES MELLITUS per A.D.A. criteria. Potassium [Moles/Vol] 3.9 mmol/L 3.5-5.1 [facility] Work Phone: Sodium [Moles/Vol] 137 mmol/L 136-145 [facility] Work Phone: Triglyceride [Mass/Vol] 161 mg/dL <199 [facility] Work Phone: Comment on above: The drugs N-Acetylcy steine and Metamizole may falsely depress this assay.Serum Triglycerides Reference Interval Normal <150 mg/dL Borderline high 150 - 199 mg/dL High 200 - 499 mg/dL Very High > or = 500 mg/dL Laboratory - Chemistry and C hemistry - challengeon 06-20-2022 ALT [Catalytic activity/Vol] 21 U/L 16-61 [facility] Work Phone: CO2 [Moles/Vol] 29.0 mmol/L 21.0-32.0 [facility] Work Phone: Urea nitrogen/Creatinine [Mass ratio] 21.7 mg/mg 10-20 [facility] Work Phone: No Panel Informationon 06-20 Estimated GFR (MDRD) Amer 75 mL/min >60 [facility] Work Phone: Comment on above: GFR Calc Estimated GFR (MDRD) Non-Af Amer 62 mL/min >60 [facility] Work Phone: Comment on above: Non- GFR Calc Serum or plasma calcium walt urement (mass/volume)on 06-20-2022 Calcium [Mass/Vol] 8.8 mg/dL 8.5-10.1 [facility] Work Phone: Serum or plasma cholesterol in HDL measurement (mass/volume)on 06-20-2022 Cholesterol in HDL [Mass/Vol] 47 mg/dL >40 [facility] Work Phone: Comment on above: The drugs N-Acetylcy steine and Metamizole may falsely depress this assay. Reference Range HDL <40 mg/dL Low HDL Cholesterol HDL >or= 60 mg/dL High HDL Cholesterol Serum or plasma cholesterol in VLDL measurement (mass/volume)on 06-20-2022 Cholesterol in VLDL [Mass/Vol] 32 mg/dL 5-40 [facility] Work Phone: Serum or plasma creatinine m easurement (mass/volume)on 06-20-2022 Creatinine [Mass/Vol] 1.20 mg/dL 0.70-1.30 [facility] Work Phone: Comment on above: The validity of the calculated GFR & GFRAA in patients over 70 years has not been determined. Clinical correlation is essential. Serum or plasma low density lipoprotein (LDL) cholesterol measurement (mass/volume)on 06-20-2022 Cholesterol in LDL [Mass/Vol] 61 mg/dL 0-130 [facility] Work Phone: Serum or plasma urea nitroge n measurement (mass/volume)on 06-20-2022 Urea nitrogen [Mass/Vol] 26 mg/dL 7-18 [facility] Work Phone: Thin prep Papanicolaou smear with manual screeningon 06-20-2022 Thin prep Papanicolaou smear with manual screening 17 U/L 15-37 [facility] Work Phone: Thin prep Papanicolaou smear with manual screening 6 5-15 [facility] Work Phone: Whole blood hemoglobin A1c/t otal hemoglobin ratio (mass fraction)on 06-20-2022 HbA1c (Bld) [Mass fraction] 6.7 % 3.8-5.6 [facility] Work Phone: Comment on above: Normal < 5.7 % Predi abetic 5.7 - 6.4 % Diabetic >or= 6.5 % Please note range changes. Absolute lymphocyte counton 04-25-2022 Lymphocytes Auto (Unsp spec) [#/Vol] 3.24 10*3/uL 0.83-4.51 [facility] Work Phone: Basophil percentageon 2021 Basophil percentage 0-5 SEEN /hpf 0-5 [facility] Work Phone: Basophils/100 WBC (Bld) 1.2 % 0-1 [facility] Work Phone: Bilirubin [Mass/Vol] 0.70 mg/dL 0.20-1.00 [facility] Work Phone: Comment on above: For patients on eltr ombopag therapy, use of Dimension Benge TBIL is not recommended. Chloride [Moles/Vol] 103 mmol/L 98-107 [facility] Work Phone: Cholesterol [Mass/Vol] 138 mg/dL <200 [facility] Work Phone: Comment on above: <200 mg/dL Desirable 200-240 mg/dL Borderline >240 mg/dL High Risk Eosinophils/100 WBC (Bld) 2.6 % 0-5 [facility] Work Phone: Glucose [Mass/Vol] 168 mg/dL 74-106 [facility] Work Phone: Comment on above: Fasting Glucose resu lt greater than or equal to 126 mg/dL suggests DIABETES MELLITUS per A.D.A. criteria. Neutrophils (Bld) [#/Vol] 4.2 10*3/uL 2.0-7.7 [facility] Work Phone: Neutrophils/100 WBC (Bld) 46.5 % 47-70 [facility] Work Phone: Potassium [Moles/Vol] 3.9 mmol/L 3.5-5.1 [facility] Work Phone: [phone] Protein [Mass/Vol] 7.3 g/dL 6.4-8.2 [facility] Work Phone: Sodium [Moles/Vol] 137 mmol/L 136-145 [facility] [place] Work Phone: Triglyceride [Mass/Vol] 193 mg/dL <199 [facility] Work Phone: Comment on above: The drugs N-Acetylcy steine and Metamizole may falsely depress this assay.Serum Triglycerides Reference Interval Normal <150 mg/dL Borderline high 150 - 199 mg/dL High 200 - 499 mg/dL Very High > or = 500 mg/dL WBC (Bld) [#/Vol] 8.9 10*3/uL 4.4-11.0 [facility] [place] Work Phone: Bilirubin Test strip Ql (U)o n 04-25-2022 Bilirubin Ql (U) Negative Negative [facility] Work Phone: Blood erythrocytes count (nu mber/volume)on 04-25-2022 RBC (Bld) [#/Vol] 4.66 10*6/uL 4.6-6.2 [facility] Work Phone: Blood hemoglobin measurement (mass/volume)on 04-25-2022 Hemoglobin (Bld) [Mass/Vol] 14.6 g/dL 13.0-16.5 [facility] Work Phone: Blood lymphocytes/100 leukoc yteson 04-25-2022 Lymphocytes/100 WBC (Bld) 36.4 % 19-41 [facility] Work Phone: Blood monocytes/100 leukocyt eson 04-25-2022 Monocytes/100 WBC (Bld) 12.6 % 0-10 [facility] Work Phone: Blood platelet mean volumeon 04-25-2022 Platelet mean volume (Bld) [Entitic vol] 10.1 fL 6.2-12.0 [facility] Work Phone: Determination of erythrocyte mean corpuscular volume (MCV)on 04-25-2022 MCV (RBC) [Entitic vol] 93.3 fL 80-94 [facility] Work Phone: Hematocrit Auto (Bld) [Volum e fraction]on 04-25-2022 Hematocrit (Bld) [Volume fraction] 43.5 % 40-54 [facility] Work Phone: Ketones Test strip Ql (U)on 04-25-2022 Ketones Ql (U) 5 mg/dl Negative [facility] Work Phone: Laboratory - Chemistry and C hemistry - challengeon 04-25-2022 ALP [Catalytic activity/Vol] 62 U/L 45-117 [facility] Work Phone: ALT [Catalytic activity/Vol] 25 U/L 16-61 [facility] Work Phone: CO2 [Moles/Vol] 25.0 mmol/L 21.0-32.0 [facility] Work Phone: Cobalamin (Vitamin B12) [Mass/Vol] 1930 pg/mL 211-911 [facility] Work Phone: Globulin (S) [Mass/Vol] 3.6 g/dL 2.2-4.2 [facility] Work Phone: Urea nitrogen/Creatinine [Mass ratio] 19.8 mg/mg 10-20 [facility] Work Phone: Laboratory - Hematology and Cell countson 04-25-2022 Erythrocyte distribution width (RBC) [Entitic vol] 46.3 fL 35.1-43.9 [facility] Work Phone: Erythrocyte distribution width (RBC) [Ratio] 13.6 % 11.6-14.6 [facility] Work Phone: Immature granulocytes/100 WBC (Bld) 0.700 % 0.0-0.9 [facility] Work Phone: Comment on above: IG% - Immature Granu locytes (promyelocytes, myelocytes and metamyelocytes) > 1% indicates that a LEFT SHIFT is Present. MCH (RBC) [Entitic mass] 31.3 pg 27.0-32.0 [facility] Work Phone: Nucleated RBC/100 WBC (Bld) [Ratio] 0 % 0-5 [facility] Work Phone: MCHC Auto (RBC) [Mass/Vol]on 04-25-2022 MCHC (RBC) [Mass/Vol] 33.6 g/dL 32-36 [facility] Work Phone: Mucus LM Ql (Urine sed)on Mucus Ql (Urine sed) 0 SEEN /hpf [facility] Work Phone: Nitrite Test strip Ql (U)on 04-25-2022 Nitrite Ql (U) Negative Negative [facility] Work Phone: No Panel Informationon 04-25 Estimated GFR (MDRD) Amer 87 mL/min >60 [facility] Work Phone: Comment on above: GFR Calc Estimated GFR (MDRD) Non-Af Amer 72 mL/min >60 [facility] Work Phone: Comment on above: Non- GFR Calc Thyroid Stimulating Hormone (TSH) 2.14 uIU/mL 0.358-3.74 [facility] Work Phone: Vitamin D 25-Hydroxy 59.3 ng/mL [facility] Work Phone: Comment on above: Vitamin D 25(OH) Sta tus Range Deficiency <20 ng/mL (50nmol/L) Insufficiency 20 - 30 ng/mL (50 - 75 nmol/L) Sufficiency 30 - 100 ng/mL (75 - 250 nmol/L) Toxicity >100 ng/mL (>250 nmol/L) Platelets bldon 04-25-2022 Platelets (Bld) [#/Vol] 264 10*3/uL 150-450 [facility] Work Phone: Protein Test strip Ql (U)on 04-25-2022 Protein Ql (U) Negative Negative [facility] Work Phone: Serum or plasma albumin walt urement (mass/volume)on 04-25-2022 Albumin [Mass/Vol] 3.7 g/dL 3.2-5.0 [facility] Work Phone: Serum or plasma albumin/glob ulin mass ratioon 04-25-2022 Albumin/Globulin [Mass ratio] 1.0 {ratio} 0.9-2.4 [facility] Work Phone: Serum or plasma calcium walt urement (mass/volume)on 04-25-2022 Calcium [Mass/Vol] 9.1 mg/dL 8.5-10.1 [facility] Work Phone: Serum or plasma cholesterol in HDL measurement (mass/volume)on 04-25-2022 Cholesterol in HDL [Mass/Vol] 43 mg/dL >40 [facility] Work Phone: Comment on above: The drugs N-Acetylcy steine and Metamizole may falsely depress this assay. Reference Range HDL <40 mg/dL Low HDL Cholesterol HDL >or= 60 mg/dL High HDL Cholesterol Serum or plasma cholesterol in VLDL measurement (mass/volume)on 04-25-2022 Cholesterol in VLDL [Mass/Vol] 39 mg/dL 5-40 [facility] Work Phone: Serum or plasma creatinine m easurement (mass/volume)on 04-25-2022 Creatinine [Mass/Vol] 1.06 mg/dL 0.70-1.30 [facility] Work Phone: Comment on above: The validity of the calculated GFR & GFRAA in patients over 70 years has not been determined. Clinical correlation is essential. Serum or plasma folate measu rement (mass/volume)on 04-25-2022 Folate [Mass/Vol] 13.80 ng/mL 3.1-55.4 [facility] Work Phone: Comment on above: Slight Hemolysis, Re sult may be falsely increased. Serum or plasma low density lipoprotein (LDL) cholesterol measurement (mass/volume)on 04-25-2022 Cholesterol in LDL [Mass/Vol] 56 mg/dL 0-130 [facility] Work Phone: Serum or plasma urea nitroge n measurement (mass/volume)on 04-25-2022 Urea nitrogen [Mass/Vol] 21 mg/dL 7-18 [facility] Work Phone: Squamous epithelial cells de tection in urine sediment by light microscopyon 04-25-2022 Epithelial cells.squamous LM Ql (Urine sed) 0 SEEN /hpf 0-5 [facility] Work Phone: Thin prep Papanicolaou smear with manual screeningon 04-25-2022 Thin prep Papanicolaou smear with manual screening 17 U/L 15-37 [facility] Work Phone: Thin prep Papanicolaou smear with manual screening 9 5-15 [facility] Work Phone: Urine blood detectionon RBC Ql (U) Negative Negative [facility] Work Phone: RBC Ql (U) 0-5 SEEN /hpf 0-5 [facility] Work Phone: Urine clarityon 04-25-2022 Clarity (U) Clear Clear [facility] Work Phone: Urine color determinationon 04-25-2022 Color (U) Yellow Yellow [facility] Work Phone: Urine glucose detectionon Glucose Ql (U) Normal mg/dl Normal [facility] Work Phone: Urine leukocyte esterase det ection by dipstickon 04-25-2022 Leukocyte esterase Test strip Ql (U) Negative Negative [facility] Work Phone: Urine pHon 04-25-2022 pH (U) 6.0 [pH] 5.0 - 8.0 [facility] Work Phone: Urine sediment bacteria coun t by microscopy (number/high power field)on 04-25-2022 Bacteria LM.HPF (Urine sed) [#/Area] RARE /hpf None Seen [facility] Work Phone: Urine specific gravity measu rementon 04-25-2022 Specific gravity (U) [Rel density] 1.020 1.002-1.03 0 [facility] Work Phone: Urobilinogen Auto test strip Ql (U)on 04-25-2022 Urobilinogen Ql (U) 4 mg/dl Normal [facility] Work Phone: Whole blood hemoglobin A1c/t otal hemoglobin ratio (mass fraction)on 04-25-2022 HbA1c (Bld) [Mass fraction] 6.6 % 3.8-5.6 [facility] Work Phone: Comment on above: Normal < 5.7 % Predi abetic 5.7 - 6.4 % Diabetic >or= 6.5 % Please note range changes. Laboratory - Drug toxicology on 04-07-2022 Amphetamines Ql (U) Negative <1000 ng/mL [facility] Work Phone: Benzodiazepines Ql (U) Negative < 200 ng/mL [facility] Work Phone: Cannabinoids Screen Ql (U) Negative < 50 ng/mL [facility] Work Phone: Cocaine Ql (U) Negative < 300 ng/mL [facility] Work Phone: Opiates Ql (U) Negative < 300 ng/mL [facility] Work Phone: No Panel Informationon 04-07 MDMA (Ecstasy) Screen Negative < 500 ng/mL [facility] Work Phone: Miscellaneous Test See comment [facility] Work Phone: Comment on above: [id number] 6+OXYCODONE-B UND (ng/mL) DRUG RESULT SCREEN CUTOFF____ [...] INFORMATION. Urine Barbiturates Screen Negative < 200 ng/mL [facility] Work Phone: Urine Drug Screen Comment [facility] Work Phone: Comment on above: CONFIRMATORY [...] Urine Methadone Screen Negative < 300 ng/mL [facility] Work Phone: Urine phencyclidine (PCP) de tectionon 04-07-2022 Phencyclidine Ql (U) Negative < 25 ng/mL [facility] Work Phone: CNOVon 03-29-2022 CNOV Office Visit (SPEMML ) LUIS ARMANDO GRIFFITH ([id number]) 1945 M Date Time Provider Department 03/29/22 1:30 PM MICHELLE RO During your visit today, we recorded the following information about you: Michelle Ro [facility]-SUPERVISOR CRACK OFF 03/29/2022 3:59 PM Signed Episode Visit Count: 1 Therapist That Will Oversee The Plan Of Care: Andrade Start of Care Date: 03/29/22 Onset Date: 11/20/20 Plan of Care Certification Date: 03/29/22 Patient Identified by Name and Date of : Yes [facility] SPEECH and SWALLOW [...] position 20-30 minutes following all oral intake SUPERVISOR CRACK OFF Recommendations: Swallowing Precautions;Discontinue Speech Therapy Results and [...] MBS (pt reports had MBS done at [facility] last year, which pt was told 'he [...] Impaired Pharyng (more content not included)... Normal [facility] Office Visit (NRMDN) LUIS ARMANDO GRIFFITH ([id number]) 1945 M Date Time Provider Department 03/29/22 12:30 PM [facility] During your visit today, we recorded the following information about you: Jaylyn Nieves MD 03/29/2022 7:35 PM Signed [facility] Jaylyn Nieves [address] [facility] [address] Ja Cooley MD [address] [facility] [address] [facility] [address] I had the pleasure of seeing Mr. 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 Started on Sinemet which caused side effects at 6/day. At last visit we tried to taper off it but he experiences return of tremors and confusion at dose of 3/day. Will increase Sinemet (more content not included)... Normal [facility] CNTHERAPYon 03-29-2022 CNTHERAPY OT/PT/Speech Visit (PTMDRG) LUIS ARMANDO GRIFFITH ([id number]) 1945 M Date Time Provider Department 03/29/22 3:30 PM MAINE MEDEL [facility] Date Time Provider Department Center 03/29/2022 3:30 PM [id number] MEDEL PTMG [facility] Reason for Visit: PT [...] Take 80 mg by mouth once daily. [facility] CNTHERAPY OT/PT/Speech Visit (OTMMC) LUIS ARMANDO GRIFFITH ([id number]) 1945 M Date Time Provider Department 03/29/22 2:30 PM HEENA ROMANO [facility] Date Time Provider Department Center 03/29/2022 2:30 PM [id number], [facility] Reason for Visit: OT EVAL [...] Take 80 mg by mouth once daily. [facility] 03-23-2022 [facility] Telephone (TOANNMCase) LUIS ARMANDO GRIFFITH ([id number]) 1945 M Date Time Provider Department 03/23/22 JAYLYN NIEVES SEAN During your visit today, [...] Encounter Status:Closed by CALI HAAS on 03/23/22 Normal [facility] CNOVon 03-17-2022 CNOV Office Visit (NRMDN) LUIS ARMANDO GRIFFITH ([id number]) 1945 M Date Time Provider Department 03/17/22 3:00 PM JAYLYN NIEVES During your visit today, we recorded the following information about you: Pulse Blood pressure Weight Height 101/minute 120/77 125.8 kg 1.778 m Jaylyn Nieves MD 03/18/2022 4:12 PM Signed [facility] - FOLLOW UP EVALUATION No referring provider defined for this encounter. Ja Cooley MD [address] [facility] [address] [facility] [address] I had the pleasure of seeing Mr. [...] to be helpful Interval History Seen at [facility] for surgical evaluation. SDR was too low [...] is be (more content not included)... Normal [facility] Basophil percentageon 2021 Chloride [Moles/Vol] 105 mmol/L 98-107 [facility] Work Phone: Glucose [Mass/Vol] 102 mg/dL 74-106 [facility] Work Phone: Comment on above: Fasting Glucose resu lt from 100 to 125 mg/dL suggests IMPAIRED HOMEOSTASIS per A.D.A. criteria. Potassium [Moles/Vol] 3.5 mmol/L 3.5-5.1 [facility] Work Phone: Sodium [Moles/Vol] 138 mmol/L 136-145 [facility] Work Phone: Laboratory - Chemistry and C hemistry - challengeon 03-10-2022 ALT [Catalytic activity/Vol] 21 U/L 16-61 [facility] Work Phone: CO2 [Moles/Vol] 26.0 mmol/L 21.0-32.0 [facility] Work Phone: Urea nitrogen/Creatinine [Mass ratio] 24.3 mg/mg 10-20 [facility] Work Phone: No Panel Informationon 03-10 Estimated GFR (MDRD) Amer 79 mL/min >60 [facility] Work Phone: Comment on above: GFR Calc Estimated GFR (MDRD) Non-Af Amer 65 mL/min >60 [facility] Work Phone: Comment on above: Non- GFR Calc Serum or plasma calcium walt urement (mass/volume)on 03-10-2022 Calcium [Mass/Vol] 8.8 mg/dL 8.5-10.1 [facility] Work Phone: Serum or plasma creatinine m easurement (mass/volume)on 03-10-2022 Creatinine [Mass/Vol] 1.15 mg/dL 0.70-1.30 [facility] Work Phone: Comment on above: The validity of the calculated GFR & GFRAA in patients over 70 years has not been determined. Clinical correlation is essential. Serum or plasma urea nitroge n measurement (mass/volume)on 03-10-2022 Urea nitrogen [Mass/Vol] 28 mg/dL 7-18 [facility] Work Phone: Thin prep Papanicolaou smear with manual screeningon 03-10-2022 Thin prep Papanicolaou smear with manual screening 21 U/L 15-37 [facility] Work Phone: Thin prep Papanicolaou smear with manual screening 7 5-15 [facility] Work Phone: Whole blood hemoglobin A1c/t otal hemoglobin ratio (mass fraction)on 03-10-2022 HbA1c (Bld) [Mass fraction] 6.5 % 3.8-5.6 [facility] Work Phone: Comment on above: Normal [...] MonDec 15, 2021 5:24:44 PM EST Normal [facility] Comment on above: Order Comment: Injur y/Trauma or Illness?:Illness/Other How long have you had these symptoms (acute/chronic)?:Acute Reason for exam?:resting tremor, Tremor Type of Exam?:Initial Additional signs and symptoms?:n Basophil percentageon 2020 Chloride [Moles/Vol] 104 mmol/L 98-107 [facility] Work Phone: Glucose [Mass/Vol] 148 mg/dL 74-106 [facility] Work Phone: Comment on above: Fasting Glucose resu lt greater than or equal to 126 mg/dL suggests DIABETES MELLITUS per A.D.A. criteria.Please note revised GLUCOSE reference range effective 2017. Potassium [Moles/Vol] 3.9 mmol/L 3.5-5.1 [facility] Work Phone: Sodium [Moles/Vol] 140 mmol/L 136-145 [facility] Work Phone: Laboratory - Chemistry and C hemistry - challengeon 11-15-2021 CO2 [Moles/Vol] 29.0 mmol/L 21.0-32.0 [facility] Work Phone: Urea nitrogen/Creatinine [Mass ratio] 18.5 mg/mg 10-20 [facility] Work Phone: No Panel Informationon 11-15 Estimated GFR (MDRD) Amer 85 mL/min >60 [facility] Work Phone: Comment on above: GFR Calc Estimated GFR (MDRD) Non-Af Amer 70 mL/min >60 [facility] Work Phone: Comment on above: Non- GFR Calc Serum or plasma calcium walt urement (mass/volume)on 11-15-2021 Calcium [Mass/Vol] 9.0 mg/dL 8.5-10.1 [facility] Work Phone: Serum or plasma creatinine m easurement (mass/volume)on 11-15-2021 Creatinine [Mass/Vol] 1.08 mg/dL 0.70-1.30 [facility] Work Phone: Comment on above: The validity of the calculated GFR & GFRAA in patients over 70 years has not been determined. Clinical correlation is essential. Serum or plasma urea nitroge n measurement (mass/volume)on 11-15-2021 Urea nitrogen [Mass/Vol] 20 mg/dL 7-18 [facility] Work Phone: Thin prep Papanicolaou smear with manual screeningon 11-15-2021 Thin prep Papanicolaou smear with manual screening 7 5-15 [facility] Work Phone: Whole blood hemoglobin A1c/t otal hemoglobin ratio (mass fraction)on 11-15-2021 HbA1c (Bld) [Mass fraction] 6.6 % 3.8-5.6 [facility] Work Phone: Comment on above: Normal [...] No other mass effect. Patent basal cisterns. Kieg-[id number] symmetric global volume loss without lobar predominance. [...] MonNov 02, 2021 8:48:26 AM EST Normal [facility] Comment on above: Order Comment: Injur y/Trauma or Illness?:Illness/Other How long have you had these symptoms (acute/chronic)?:Acute Reason for exam?:trmors Type of Exam?:Initial Additional signs and symptoms?:HIFU protocol Glucose,Bedsideon 05-19-2021 Glucose [Mass/Vol] 137 mg/dL High 70-100 [facility] Comment on above: Result Comment: Test performed by glucose meter. Results may be 10%-15% lower than serum/plasma values. (CLIA ID [id number]) Performed By: #### B GLU #### [facility] [address] [address] OPERATIVE REPORTOrdered By: 3m Scanning on 05-19-2021 [facility] Work Phone: POCT GlucoseOrdered By: Nii Altman on 05-19-2021 Glucose [Mass/Vol] 137 mg/dL High 70 - 100 mg/dL [facility] Work Phone: Comment on above: Test performed by gl ucose meter. Results may be 10%-15% lower than serum/plasma values. (CLIA ID [id number]) Interpretation and review of laboratory results Abnormal [facility] Work Phone: Test Performed by [facility], [address] [place] [id number] [place] [address] Work Phone: [facility] Work Phone: ECHO Pharmacological Stress TestOrdered By: Raeann Holland on 05-11-2021 STRESS ECHOCARDIOGRA M Dobutamine PATIENT: Luis Armando Griffith STUDY DATE: 05/11/2021 : 1945 AGE: 75 HT/WT: 177.8 cm (70 123.2 kg in) (271 lb) GENDER: M BP: 149 / 83 LOCATION: [facility] PATIENT Outpatient [facility] STATUS: Medical Center *ORDERING PHYSICIAN: * Amalia, *FELLOW: * Wes Montilla MD *SUPERVISING PHYSICIAN: * *RN: * Bessie Duarte Diana *READING PHYSICIAN: * Genna Valdes MD, *OPERATIONS SUPPORT REPRESENTATIVE: * Dai Scrwesjose [facility] -- INDICATIONS: Pre-operative. Shortness of breath. [...] was augmented by the addition of hand burn crew member. The infusion was terminated after achieving the [...] (84) + + (more content not included)... [employer] Work Phone: Brandyn, Scotta Incoming Cardiology Results From [facility] - 05/11/2021 4:29 PM EDT STRESS ECHOCARDIOGRAM Dobutamine PATIENT: Luis Armando Grififth STUDY DATE: 05/11/2021 : 1945 AGE: 75 HT/WT: 177.8 cm (70 123.2 kg in) (271 lb) GENDER: M BP: 149 / 83 LOCATION: [facility] PATIENT Outpatient [facility] STATUS: Medical Center *ORDERING PHYSICIAN: * Amalia, *FELLOW: * Wes Montilla MD *SUPERVISING PHYSICIAN: * *RN: * Bessie Duarte Diana *READING PHYSICIAN: * Genna Valdes MD, *OPERATIONS SUPPORT REPRESENTATIVE: Amina Burnette [facility] -- INDICATIONS: Pre-operative. Shortness of breath. [...] was augmented by the addition of hand burn crew member. The infusion was terminated after achieving the [...] an appropriate blo (more content not included)... [employer] Work Phone: [employer] Phone: Echo Dobutamine Stress Echo w/wo Conton 05-11-2021 Echo Dobutamine Stress Echo w/wo Cont Patient Name: LUIS ARMANDO GRIFFITH Ultrasound ACCESSION EXAM DATE/TIME PROCEDURE ORDERING PROVIDER [id number] 05/11/2021 11:00 EDT Echo Dobutamine Stress AWAIS HOLLAND, RAEANN Echo w/wo Cont Reason For Exam (Echo Dobutamine Stress Echo w/wo Cont) pre op testing, abnormal EKG, shortness of breath Report STRESS ECHOCARDIOGRAM Dobutamine PATIENT: Luis Armando Griffith STUDY DATE: 05/11/2021 [facility]#: [id number] : 1945 AGE: 75 HT/WT: 177.8 cm (70 123.2 kg in) (271 lb) GENDER: M BP: 149 / 83 LOCATION: [facility] Outpatient [facility] STATUS: Medical Center *ORDERING PHYSICIAN: * Amalia, *FELLOW: * Wes Montilla MD *SUPERVISING PHYSICIAN: * *RN: * Bessie Duarte Diana *READING PHYSICIAN: * Genna Valdes MD, *OPERATIONS SUPPORT REPRESENTATIVE: Amina Burnette [facility] -- INDICATIONS: Pre-operative. Shortness of breath. [...] was augmented by the addition of hand burn crew member. The infusion was terminated after achieving the [...] --+ +-- (more content not included)... Normal [employer] CBCOrdered By: Raeann murillo on 05-05-2021 Hematocrit (Bld) [Volume fraction] 46.8 % 40.0 - 52.0 % [employer] Phone: Hemoglobin.gastrointestin al spec 1 Ql (Stl) 15.9 g/dL 13.0 - 18.0 g/dL [facility] Phone: Interpretation and review of laboratory results Abnormal [employer] Phone: MCH (RBC) [Entitic mass] 31.9 pg 26. 0 - 34.0 pg [employer] Phone: MCHC (RBC) [Mass/Vol] 34.0 % 32.0 - 36.0 % [employer] Phone: [phone] MCV (RBC) [Entitic vol] 94.0 fL 80.0 - 98.0 fL [employer] Phone: [phone] Platelet distribution width (Bld) [Ratio] 13.6 % 11.5 - 14.5 % [employer] Phone: [phone] Platelet mean volume (Bld) [Entitic vol] 9.0 fL 7.4 - 10.4 fL [employer] Phone: Platelets (Bld) [#/Vol] 287 10*3/uL 140 - 440 10*3/uL [employer] Work Phone: RBC (Bld) [#/Vol] 4.98 10*6/uL 4.40 - 5.90 10*6/uL [employer] Work Phone: WBC (Bld) [#/Vol] 11.0 10*3/uL High 3.6 - 10.7 10*3/uL [employer] Work Phone: [phone] Test Performed by [facility], [address] [place] [address] [facility] Work Phone: [phone] [employer] Work Phone: [phone] Comp Panel with Mg Reflexon 05-05-2021 ALP [Catalytic activity/Vol] 74 U/L Normal 38-126 [facility] Comment on above: Performed By: #### C MP3M, HEMOG #### [place] [address] [place], [place] ALT [Catalytic activity/Vol] 38 U/L Normal 0-49 [facility] Comment on above: Result Comment: The ALT test is performed by an updated assay method. Please note that the reference intervals have been changed and are now sex specific. Performed By: #### C MP3M, HEMOG #### [place] [address] [address] [place], [place] AST [Catalytic activity/Vol] 28 U/L Normal 15-46 [facility] Comment on above: Performed By: #### C MP3M, HEMOG #### [address] [place] [address] [place], [place] Calcium [Mass/Vol] 9.6 mg/dL Normal 8.4-10.4 [facility] Comment on above: Performed By: #### C MP3M, HEMOG #### [facility] [place] [address] [place], [place] Glucose [Mass/Vol] 55 mg/dL Low 70-100 [facility] Comment on above: Performed By: #### C MP3M, HEMOG #### [facility] [place] [address] [address] [place], [place] Protein [Mass/Vol] 8.1 g/dL Normal 6.3-8.2 [facility] Comment on above: Performed By: #### C MP3M, HEMOG #### [facility] [address] [place], [place] Urea nitrogen [Mass/Vol] 23 mg/dL High 7-20 [facility] Comment on above: Performed By: #### C MP3M, HEMOG #### [facility] [address] [place], [place] Anion gap [Moles/Vol] 9 mmol/L Normal 3-13 [facility] Comment on above: Performed By: #### C MP3M, HEMOG #### [place] [address] [address] [place], [place] Bilirubin [Mass/Vol] 1.3 mg/dL Normal 0.2-1.3 [facility] Comment on above: Performed By: #### C MP3M, HEMOG #### [place] [address] [address] [place], [place] CO2 [Moles/Vol] 30 mmol/L Normal 22-30 [facility] Comment on above: Performed By: #### C MP3M, HEMOG #### [place] [address] [address] [place], [place] Creatinine [Mass/Vol] 1.02 mg/dL Normal 0.52-1.25 [facility] Comment on above: Performed By: #### C MP3M, HEMOG #### [place] [address] [address] [place], [place] GFR/1.73 sq M.predicted among blacks MDRD (S/P/Bld) [Vol rate/Area] 81.9 mL/min/{1.73_m2} Normal >60 [facility] Comment on above: Performed By: #### C MP3M, HEMOG #### [facility] [address] [place], [place] GFR/1.73 sq M.predicted among non-blacks MDRD (S/P/Bld) [Vol rate/Area] 70.7 mL/min/{1.73_m2} Normal >60 [facility] Comment on above: Result Comment: KDIG [...] By: #### C MP3M, HEMOG #### [facility] [address] [place], [place] Albumin [Mass/Vol] 4.8 g/dL Normal 3.5-5.0 [facility] Comment on above: Performed By: #### C MP3M, HEMOG #### [place] [address] [place], [place] Chloride [Moles/Vol] 101 mmol/L Normal 98-107 [facility] Comment on above: Performed By: #### C MP3M, HEMOG #### [facility] [address] [place], [place] Potassium [Moles/Vol] 3.9 mmol/L Normal 3.5-5.1 [facility] Comment on above: Performed By: #### C MP3M, HEMOG #### [facility] [address] [place] [address] Sodium [Moles/Vol] 140 mmol/L Normal 135-145 [facility] Comment on above: Performed By: #### C MP3M, HEMOG #### [facility] [address] [place], [place] Comprehensive Metabolic Pane l w/ Reflex to MGOrdered By: Raeann Holland on 05-05-2021 Albumin [Mass/Vol] 4.8 g/dL 3.5 - 5.0 g/dL [facility] Work Phone: ALP (Bld) [Catalytic activity/Vol] 74 U/L 38 - 126 U/L [facility] Work Phone: ALT [Catalytic activity/Vol] 38 U/L 0 - 49 U/L [facility] Work Phone: Comment on above: The ALT test is perf ormed by an updated assay method. Please note that the reference intervals have been changed and are now sex specific. Anion gap [Moles/Vol] 9 mmol/L 3 - 13 mmol/L [employer] Work Phone: AST [Catalytic activity/Vol] 28 U/L 15 - 46 U/L [facility] Work Phone: [phone] Bilirubin [Mass/Vol] 1.3 mg/dL 0.2 - 1 .3 mg/dL [facility] Work Phone: [phone] Calcium [Mass/Vol] 9.6 mg/dL 8.4 - 10. 4 mg/dL [facility] Work Phone: Chloride [Moles/Vol] 101 mmol/L 98 - 10 7 mmol/L [facility] Work Phone: [phone] CO2 [Moles/Vol] 30 mmol/L 22 - 30 mmol/L [facility] Work Phone: Creatinine [Mass/Vol] 1.02 mg/dL 0.52 - 1.25 mg/dL [facility] Work Phone: EGFR IF NonAfrican [place]er 70.7 mL/min >60 [facility] Work Phone: Comment on above: KDIGO guidelines [...] fraction] 8.1 g/dL 6.3 - 8.2 g/dL [facility] Work Phone: GFR/1.73 sq M.predicted among blacks MDRD (S/P/Bld) [Vol rate/Area] 81.9 mL/min/{1.73_m2} >60 [facility] Work Phone: Glucose [Mass/Vol] 55 mg/dL Low 70 - 100 mg/dL [facility] Work Phone: Interpretation and review of laboratory results Abnormal [facility] Work Phone: Potassium [Moles/Vol] 3.9 mmol/L 3.5 - 5.1 mmol/L [facility] Work Phone: Sodium [Moles/Vol] 140 mmol/L 135 - 145 mmol/L [facility] Work Phone: Urea nitrogen (BldV) [Mass/Vol] 23 mg/dL High 7 - 20 mg/dL [facility] Work Phone: Test Performed by [facility], [address] [place] [address] [facility] Work Phone: [facility] Work Phone: Hemogramon 05-05-2021 Erythrocyte distribution width (RBC) [Ratio] 13.6 % Normal 11.5-14.5 [facility] Comment on above: Performed By: #### C PAULA3Matthew HEMOG #### [address] [address] Hematocrit (Bld) [Volume fraction] 46.8 % Normal 40.0-52.0 [facility] Comment on above: Performed By: #### C MP3Matthew, HEMOG #### [address] [address] Hemoglobin (Bld) [Mass/Vol] 15.9 g/dL Normal 13.0-18.0 [facility] Comment on above: Performed By: #### C MP3M, HEMOG #### [place] [address] [address] [place], [place] MCH (RBC) [Entitic mass] 31.9 pg Normal 26.0-34.0 [facility] Comment on above: Performed By: #### C MP3M, HEMOG #### [place] [address] [address] [place], [place] MCHC 34.0 % Normal 32.0-36.0 [facility] Comment on above: Performed By: #### C MP3M, HEMOG #### [place] [address] [place], [place] MCV (RBC) [Entitic vol] 94.0 fL Normal 80.0-98.[address] [facility] Comment on above: Performed By: #### C MP3M, HEMOG #### [place] [address] [place], [place] Platelet mean volume (Bld) [Entitic vol] 9.0 fL Normal 7.4-10.4 [facility] Comment on above: Performed By: #### C MP3M, HEMOG #### [place] [address] [place], [place] Platelets (Bld) [#/Vol] 287 10*3/uL Normal 140-440 [facility] Comment on above: Performed By: #### C MP3M, HEMOG #### [place] [address] [address] [place], [place] RBC (Bld) [#/Vol] 4.98 10*6/uL Normal 4.40-5.90 [facility] Comment on above: Performed By: #### C MP3M, HEMOG #### [place] [address] [place], [place] WBC (Bld) [#/Vol] 11.0 10*3/uL High 3.6-10.7 [facility] Comment on above: Performed By: #### C MP3M, HEMOG #### [facility] [address] [address] TS GELon 05-05-2021 TS GEL ABO Group: A Rh, Gel: POS Antibody Screen Gel: NEG Normal [facility] Comment on above: Performed By: #### T SGL #### [facility] TYPE AND SCREENOrdered By: Khushbu Holland on 05-05-2021 ABO Grouping A [employer] Work Phone: Rh Type Positive [employer] Work Phone: Test Performed by [facility], [address] [place] [id number] [facility] Work Phone: [employer] Work Phone: Otheron 08-16-2006 CONVERTED ELECTRONIC SIGNATURE GUILLERMO SIMPSON M.D., PATHOLOGIST (Electronic signature on file) Final Signed Out: 08/16/2006 12:36 [facility] CONVERTED FINAL DIAGNOSIS LEFT KNEE, EXC ISION - DEGENERATIVE CHANGES OF ARTICULAR CARTILAGE CONSISTENT WITH OSTEOARTHRITIS. [facility] CONVERTED ORDERING PROVIDER Ordering Provider: WYATT NOBLE [facility] Otheron 02-06-2006 CONVERTED ELECTRONIC SIGNATURE BILL MELTON M.D., PATHOLOGIST (Electronic signature on file) Final Signed Out: 02/06/2006 15:13 [facility] CONVERTED FINAL DIAGNOSIS LEFT KNEE, EXC ISION - FIBROCARTILAGE WITH DEGENERATIVE CHANGES. SYNOVIUM WITH NONSPECIFIC REACTIVE CHANGES. [facility] CONVERTED ORDERING PROVIDER Ordering Provider: WYATT NOBLE [facility] Vital Signs Date Time Vital Sign Value Performing Clinician Facility 08-22-2025 [id number] Body temperature 97.9 [degF] Dr. Ja Cooley MD Work Phone: [facility] 08-22-2025 09:10-0400 Diastolic blood pressure 71 mm[Hg] Dr. Ja Cooley MD Work Phone: [facility] 08-22-2025 09:10-0400 Heart rate 83 /min Dr. Ja Cooley MD Work Phone: [facility] 08-22-2025 09:10-0400 Respiratory rate 18 /min Dr. Ja Cooley MD Work Phone: [facility] 08-22-2025 09:10-0400 SaO2% (BldA) [Mass fraction] 97 % Dr. Ja Cooley MD Work Phone: 1(754)528-850736 [place] [address] 08-22-2025 09:10-0400 Systolic blood pressure 134 mm[Hg] Dr. Ja Cooley MD Work Phone: 2(504)906-830406 [place] [address] 08-22-2025 07:20-0400 Body height 177.[address] Ja Cooley MD Work Phone: 2(344)098-823306 [place] [address] 08-22-2025 07:20-0400 Body mass index (BMI) [Ratio] 34 kg/m2 Dr. Ja Cooley MD Work Phone: 8(715)665-687106 [place] [address] 08-22-2025 07:20-0400 Body weight 107.[address] Ja Cooley MD Work Phone: 4(649)152-699406 [place] [address] 07-12-2025 20:38-0400 Body temperature 98.4 [degF] Dr. Ja Cooley MD Work Phone: 8(518)603-781706 [place] [address] 07-12-2025 20:38-0400 Diastolic blood pressure 91 mm[Hg] Dr. Ja Cooley MD Work Phone: 8(385)262-479606 [place] [address] 07-12-2025 20:38-0400 Heart rate 101 /min Dr. Ja Cooley MD Work Phone: 6(280)784-706606 [place] [address] 07-12-2025 20:38-0400 Respiratory rate 17 /min Dr. Ja Cooley MD Work Phone: 8(159)631-084806 [place] [address] 07-12-2025 20:38-0400 SaO2% (BldA) [Mass fraction] 93 % Dr. Ja Cooley MD Work Phone: 5(454)772-602706 [place] [address] 07-12-2025 20:38-0400 Systolic blood pressure 167 mm[Hg] Dr. Ja Cooley MD Work Phone: 7(735)788-132706 [place] [address] 07-12-2025 18:05-0400 Body height 177.[address] Ja Cooley MD Work Phone: 9(564)033-348936 [place] [address] 07-12-2025 18:05-0400 Body mass index (BMI) [Ratio] 35.2 kg/m2 Dr. Ja Cooley MD Work Phone: 5(489)913-595236 [place] [address] 07-12-2025 18:05-0400 Body weight 111.[address] Ja Cooley MD Work Phone: 2(438)075-577906 [place] [address] 07-07-2025 05:18-0400 Body temperature 98.7 [degF] Dr. Ja Cooley MD Work Phone: 2(223)376-270506 [place] [address] 07-07-2025 05:18-0400 Diastolic blood pressure 84 mm[Hg] Dr. Ja Cooley MD Work Phone: 9(903)520-737706 [place] [address] 07-07-2025 05:18-0400 Heart rate 94 /min Dr. Ja Cooley MD Work Phone: 1(240)886-475906 [place] [address] 07-07-2025 05:18-0400 Respiratory rate 16 /min Dr. Ja Cooley MD Work Phone: 8(471)270-939906 [place] [address] 07-07-2025 05:18-0400 SaO2% (BldA) [Mass fraction] 96 % Dr. Ja Cooley MD Work Phone: 1(869)355-091506 [place] [address] 07-07-2025 05:18-0400 Systolic blood pressure 152 mm[Hg] Dr. Ja Cooley MD Work Phone: 0(377)115-645506 [place] [address] 07-07-2025 03:54-0400 Body height 177.[address] Ja Cooley MD Work Phone: 2(397)044-372606 [place] [address] 07-07-2025 03:54-0400 Body mass index (BMI) [Ratio] 34.7 kg/m2 Dr. Ja Cooley MD Work Phone: 7(239)218-440406 [place] [address] 07-07-2025 03:54-0400 Body weight [address] Ja Cooley MD Work Phone: 7(244)105-416606 [place] [address] 06-27-2025 08:54-0400 Body mass index (BMI) [Ratio] 35.6 kg/m2 Dr. Ja Cooley MD Work Phone: [facility] 06-27-2025 08:54-0400 Body weight 112.[address] Ja Cooley MD Work Phone: [facility] 06-27-2025 08:54-0400 Diastolic blood pressure 71 mm[Hg] Dr. Ja Cooley MD Work Phone: [facility] 06-27-2025 08:54-0400 Heart rate 112 /min Dr. Ja Cooley MD Work Phone: [facility] 06-27-2025 08:54-0400 Heart rate 102 /min Dr. Ja Cooley MD Work Phone: [facility] 06-27-2025 08:54-0400 Respiratory rate 18 /min Dr. Ja Cooley MD Work Phone: [facility] 06-27-2025 08:54-0400 SaO2% (BldA) [Mass fraction] 90 % Dr. Ja Cooley MD Work Phone: [facility] 06-27-2025 08:54-0400 Systolic blood pressure 128 mm[Hg] Dr. Ja Cooley MD Work Phone: [facility] 06-26-2025 13:07-0400 Body temperature 98.4 [degF] Dr. Ja Cooley MD Work Phone: [facility] 06-26-2025 13:07-0400 Body weight 109.[address] Ja Cooley MD Work Phone: [facility] 06-26-2025 13:07-0400 Diastolic blood pressure 72 mm[Hg] Dr. Ja Cooley MD Work Phone: [facility] 06-26-2025 13:07-0400 Heart rate 99 /min Dr. Ja Cooley MD Work Phone: [facility] 06-26-2025 13:07-0400 Respiratory rate 17 /min Dr. Ja Cooley MD Work Phone: [facility] 06-26-2025 13:07-0400 SaO2% (BldA) [Mass fraction] 90 % Dr. Ja Cooley MD Work Phone: [facility] 06-26-2025 13:07-0400 Systolic blood pressure 128 mm[Hg] Dr. Ja Cooley MD Work Phone: 4(051)166-727636 [place] [address] 06-24-2025 14:39-0400 Body height 177.[address] Ja Cooley MD Work Phone: 3(595)996-316936 [place] [address] 06-24-2025 14:39-0400 Body mass index (BMI) [Ratio] 34.8 kg/m2 Dr. Ja Cooley MD Work Phone: 5(959)716-649036 [place] [address] 06-24-2025 14:39-0400 Body weight 110.[address] Ja Cooley MD Work Phone: 3(896)575-747036 [place] [address] 06-24-2025 14:39-0400 Diastolic blood pressure 72 mm[Hg] Dr. Ja Cooley MD Work Phone: 6(166)876-931036 [place] [address] 06-24-2025 14:39-0400 Heart rate 82 /min Dr. Ja Cooley MD Work Phone: 4(320)747-664636 [place] [address] 06-24-2025 14:39-0400 Respiratory rate 17 /min Dr. Ja Cooley MD Work Phone: 4(969)218-599836 [place] [address] 06-24-2025 14:39-0400 SaO2% (BldA) [Mass fraction] 93 % Dr. Ja Cooley MD Work Phone: [facility] 06-24-2025 14:39-0400 Systolic blood pressure 127 mm[Hg] Dr. Ja Cooley MD Work Phone: [facility] 06-19-2025 21:29-0400 Body temperature 98.7 [degF] Dr. Ja Cooley MD Work Phone: 6(322)547-589636 [place] [address] 06-19-2025 21:29-0400 Diastolic blood pressure 66 mm[Hg] Dr. Ja Cooley MD Work Phone: [facility] 06-19-2025 21:29-0400 Heart rate 85 /min Dr. Ja Cooley MD Work Phone: [facility] 06-19-2025 21:29-0400 Respiratory rate 18 /min Dr. Ja Cooley MD Work Phone: 1(433)087-085006 [place] [address] 06-19-2025 21:29-0400 SaO2% (BldA) [Mass fraction] 93 % Dr. Ja Cooley MD Work Phone: 9(548)154-727906 [place] [address] 06-19-2025 21:29-0400 Systolic blood pressure 142 mm[Hg] Dr. Ja Cooley MD Work Phone: 9(935)492-635906 [place] [address] 06-19-2025 19:18-0400 Body height 177.[address] Ja Cooley MD Work Phone: 8(014)815-069406 [place] [address] 06-19-2025 19:18-0400 Body mass index (BMI) [Ratio] 35.3 kg/m2 Dr. Ja Cooley MD Work Phone: 0(197)482-675906 [place] [address] 06-19-2025 19:18-0400 Body weight 111.[address] Ja Cooley MD Work Phone: 0(472)230-449406 [place] [address] 06-12-2025 14:00-0400 Body temperature 98.3 [degF] Dr. Ja Cooley MD Work Phone: 9(133)260-335636 [place] [address] 06-12-2025 14:00-0400 Diastolic blood pressure 70 mm[Hg] Dr. Ja Cooley MD Work Phone: 6(406)324-720336 [place] [address] 06-12-2025 14:00-0400 Heart rate 69 /min Dr. Ja Cooley MD Work Phone: 9(464)245-330036 [place] [address] 06-12-2025 14:00-0400 Respiratory rate 14 /min Dr. Ja Cooley MD Work Phone: 0(633)060-108936 [place] [address] 06-12-2025 14:00-0400 SaO2% (BldA) [Mass fraction] 97 % Dr. Ja Cooley MD Work Phone: [facility] 06-12-2025 14:00-0400 Systolic blood pressure 118 mm[Hg] Dr. Ja Cooley MD Work Phone: [facility] 06-12-2025 10:40-0400 Body height 177.[address] Ja Cooley MD Work Phone: [facility] 06-12-2025 10:40-0400 Body mass index (BMI) [Ratio] 36.3 kg/m2 Dr. Ja Cooley MD Work Phone: 0(141)032-904336 [place] [address] 06-12-2025 10:40-0400 Body weight 114.[address] Ja Cooley MD Work Phone: 4(238)106-422936 [place] [address] 06-09-2025 16:10-0400 Body temperature 98.4 [degF] Dr. Ja Cooley MD Work Phone: 5(132)137-198536 [place] [address] 06-09-2025 16:10-0400 Diastolic blood pressure 80 mm[Hg] Dr. Ja Cooley MD Work Phone: 9(852)528-641736 [place] [address] 06-09-2025 16:10-0400 Heart rate 70 /min Dr. Ja Cooley MD Work Phone: [facility] 06-09-2025 16:10-0400 Respiratory rate 16 /min Dr. Ja Cooley MD Work Phone: [facility] 06-09-2025 16:10-0400 SaO2% (BldA) [Mass fraction] 95 % Dr. Ja Cooley MD Work Phone: [facility] 06-09-2025 16:10-0400 Systolic blood pressure 126 mm[Hg] Dr. Ja Cooley MD Work Phone: [facility] 06-09-2025 06:56-0400 Inhaled oxygen flow rate 3 L/min Dr. Ja Cooley MD Work Phone: [facility] 06-09-2025 04:55-0400 Body mass index (BMI) [Ratio] 35.3 kg/m2 Dr. Ja Cooley MD Work Phone: [facility] 06-09-2025 04:55-0400 Body weight 111.[address] Ja Cooley MD Work Phone: [facility] 06-08-2025 23:24-0400 Body height 177.[address] Ja Cooley MD Work Phone: [facility] 06-08-2025 21:41-0400 Body temperature 98 [degF] Dr. Ja Cooley MD Work Phone: 6(947)647-359136 [place] [address] 06-08-2025 21:41-0400 Diastolic blood pressure 76 mm[Hg] Dr. Ja Cooley MD Work Phone: [facility] 06-08-2025 21:41-0400 Heart rate 81 /min Dr. Ja Cooley MD Work Phone: [facility] 06-08-2025 21:41-0400 Respiratory rate 16 /min Dr. Ja Cooley MD Work Phone: [facility] 06-08-2025 21:41-0400 SaO2% (BldA) [Mass fraction] 94 % Dr. Ja Cooley MD Work Phone: [facility] 06-08-2025 21:41-0400 Systolic blood pressure 120 mm[Hg] Dr. Ja Cooley MD Work Phone: [facility] 06-08-2025 18:03-0400 Body height 177.[address] Ja Cooley MD Work Phone: [facility] 06-08-2025 18:03-0400 Body mass index (BMI) [Ratio] 35.9 kg/m2 Dr. Ja Cooley MD Work Phone: [facility] 06-08-2025 18:03-0400 Body weight 113.[address] Ja Cooley MD Work Phone: [facility] 05-11-2025 19:06-0400 Body temperature 98.4 [degF] Dr. Ja Cooley MD Work Phone: [facility] 05-11-2025 19:06-0400 Diastolic blood pressure 69 mm[Hg] Dr. Ja Cooley MD Work Phone: [facility] 05-11-2025 19:06-0400 Heart rate 72 /min Dr. Ja Cooley MD Work Phone: [facility] 05-11-2025 19:06-0400 Respiratory rate 16 /min Dr. Ja Cooley MD Work Phone: [facility] 05-11-2025 19:06-0400 SaO2% (BldA) [Mass fraction] 97 % Dr. Ja Cooley MD Work Phone: [facility] 05-11-2025 19:06-0400 Systolic blood pressure 138 mm[Hg] Dr. Ja Cooley MD Work Phone: [facility] 05-11-2025 17:49-0400 Body height 177.[address] Ja Cooley MD Work Phone: [facility] 05-11-2025 17:49-0400 Body mass index (BMI) [Ratio] 36.6 kg/m2 Dr. Ja Cooley MD Work Phone: [facility] 05-11-2025 17:49-0400 Body weight [address] Ja Cooley MD Work Phone: [facility] 04-13-2025 22:27-0400 Diastolic blood pressure 75 mm[Hg] ANALY Powell MD Work Phone: [facility] 04-13-2025 22:27-0400 Heart rate 77 /min ANALY Powell MD Work Phone: [facility] 04-13-2025 22:27-0400 Respiratory rate 20 /min ANALY Powell MD Work Phone: [facility] 04-13-2025 22:27-0400 SaO2% (BldA) [Mass fraction] 97 % ANALY Powell MD Work Phone: [facility] 04-13-2025 22:27-0400 Systolic blood pressure 133 mm[Hg] ANALY Powell MD Work Phone: [facility] 04-13-2025 20:40-0400 Body temperature 98.01 [degF] ANALY Powell MD Work Phone: [facility] 04-09-2025 13:13-0400 Body temperature 96.8 [degF] Dr. Ja Cooley MD Work Phone: [facility] 04-09-2025 13:13-0400 Diastolic blood pressure 65 mm[Hg] Dr. Ja Cooley MD Work Phone: [facility] 04-09-2025 13:13-0400 Heart rate 76 /min Dr. Ja Cooley MD Work Phone: [facility] 04-09-2025 13:13-0400 Respiratory rate 18 /min Dr. Ja Cooley MD Work Phone: [facility] 04-09-2025 13:13-0400 SaO2% (BldA) [Mass fraction] 98 % Dr. Ja Cooley MD Work Phone: [facility] 04-09-2025 13:13-0400 Systolic blood pressure 145 mm[Hg] Dr. Ja Cooley MD Work Phone: [facility] 04-09-2025 11:18-0400 Body height [address] Ja Cooley MD Work Phone: [facility] 04-09-2025 11:18-0400 Body mass index (BMI) [Ratio] 35.8 kg/m2 Dr. Ja Cooley MD Work Phone: [facility] 04-09-2025 11:18-0400 Body weight 113.[address] Ja Cooley MD Work Phone: [facility] 03-20-2025 16:23-0400 Diastolic blood pressure 78 mm[Hg] Dr. Ja Cooley MD Work Phone: [facility] 03-20-2025 16:23-0400 Systolic blood pressure 164 mm[Hg] Dr. Ja Cooley MD Work Phone: [facility] 03-20-2025 15:16-0400 Body height 177.[address] Ja Cooley MD Work Phone: [facility] 03-20-2025 15:16-0400 Body mass index (BMI) [Ratio] 34.9 kg/m2 Dr. Ja Cooley MD Work Phone: 4(762)598-035236 [place] [address] 03-20-2025 15:16-0400 Body temperature 98.2 [degF] Dr. Ja Cooley MD Work Phone: 6(079)614-112136 [place] [address] 03-20-2025 15:16-0400 Body weight 110.[address] Ja Cooley MD Work Phone: [facility] 03-20-2025 15:16-0400 Diastolic blood pressure 72 mm[Hg] Dr. Ja Cooley MD Work Phone: [facility] 03-20-2025 15:16-0400 Heart rate 86 /min Dr. Ja Cooley MD Work Phone: [facility] 03-20-2025 15:16-0400 Respiratory rate 15 /min Dr. Ja Cooley MD Work Phone: [facility] 03-20-2025 15:16-0400 SaO2% (BldA) [Mass fraction] 95 % Dr. Ja Cooley MD Work Phone: [facility] 03-20-2025 15:16-0400 Systolic blood pressure 134 mm[Hg] Dr. Ja Cooley MD Work Phone: [facility] 02-14-2025 21:12-0400 Body height 177.[address] Ja Cooley MD Work Phone: [facility] 02-14-2025 21:12-0400 Body temperature 97.3 [degF] Dr. Ja Cooley MD Work Phone: [facility] 02-14-2025 21:12-0400 Diastolic blood pressure 60 mm[Hg] Dr. Ja Cooley MD Work Phone: [facility] 02-14-2025 21:12-0400 Heart rate 93 /min Dr. Ja Cooley MD Work Phone: 8(500)278-466036 [place] [address] 02-14-2025 21:12-0400 Respiratory rate 18 /min Dr. Ja Cooley MD Work Phone: 8(858)877-544561 [address] 02-14-2025 21:12-0400 SaO2% (BldA) [Mass fraction] 92 % Dr. Ja Cooley MD Work Phone: 7(981)482-330761 [address] 02-14-2025 21:12-0400 Systolic blood pressure 137 mm[Hg] Dr. Ja Cooley MD Work Phone: 5(226)669-608336 [place] [address] 02-06-2025 14:25-0400 Diastolic blood pressure 64 mm[Hg] Dr. Ja oColey MD Work Phone: 3(285)069-050936 [place] [address] 02-06-2025 14:25-0400 Systolic blood pressure 116 mm[Hg] Dr. Ja Cooley MD Work Phone: 9(561)160-494436 [place] [address] 02-06-2025 12:56-0400 Body temperature 97.8 [degF] Dr. Ja Cooley MD Work Phone: 1(064)986-112636 [place] [address] 02-06-2025 12:56-0400 Body weight 110.[address] Ja Cooley MD Work Phone: 2(604)133-624036 [place] [address] 02-06-2025 12:56-0400 Heart rate 82 /min Dr. Ja Cooley MD Work Phone: [facility] 02-06-2025 12:56-0400 Respiratory rate 17 /min Dr. Ja Cooley MD Work Phone: 2(601)327-355836 [place] [address] 02-06-2025 12:56-0400 SaO2% (BldA) [Mass fraction] 95 % Dr. Ja Cooley MD Work Phone: 4(677)208-618836 [place] [address] 12-10-2024 14:30-0500 Diastolic blood pressure 70 mm[Hg] Dr. Ja Cooley MD Work Phone: 2(932)077-420436 [place] [address] 12-10-2024 14:30-0500 Systolic blood pressure 130 mm[Hg] Dr. Ja Cooley MD Work Phone: 9(915)268-307406 [place] [address] 12-10-2024 10:36-0500 Body height 177.[address] Ja Cooley MD Work Phone: 4(018)547-191706 [place] [address] 12-10-2024 10:36-0500 Body mass index (BMI) [Ratio] 34.7 kg/m2 Dr. Ja Cooley MD Work Phone: 6(602)456-941006 [place] [address] 12-10-2024 10:36-0500 Body temperature 97.7 [degF] Dr. Ja Cooley MD Work Phone: 6(867)674-388936 [place] [address] 12-10-2024 10:36-0500 Body weight 109.[address] Ja Cooley MD Work Phone: 4(737)309-840306 [place] [address] 12-10-2024 10:36-0500 Heart rate 77 /min Dr. Ja Cooley MD Work Phone: 0(032)368-017406 [place] [address] 12-10-2024 10:36-0500 Respiratory rate 14 /min Dr. Ja Cooley MD Work Phone: 6(982)463-862136 [place] [address] 12-10-2024 10:36-0500 SaO2% (BldA) [Mass fraction] 97 % Dr. Ja Cooley MD Work Phone: 8(056)417-060836 [place] [address] 12-05-2024 19:35-0500 Body temperature 98 [degF] Dr. Ja Cooley MD Work Phone: 1(171)155-529936 [place] [address] 12-05-2024 19:35-0500 Diastolic blood pressure 75 mm[Hg] Dr. Ja Cooley MD Work Phone: 2(834)087-073161 [address] 12-05-2024 19:35-0500 Heart rate 67 /min Dr. Ja Cooely MD Work Phone: [facility] 12-05-2024 19:35-0500 Respiratory rate 18 /min Dr. Ja Cooley MD Work Phone: [facility] 12-05-2024 19:35-0500 SaO2% (BldA) [Mass fraction] 97 % Dr. Ja Cooley MD Work Phone: [facility] 12-05-2024 19:35-0500 Systolic blood pressure 118 mm[Hg] Dr. Ja Cooley MD Work Phone: [facility] 12-05-2024 17:15-0500 Body mass index (BMI) [Ratio] 34.5 kg/m2 Dr. Ja Cooley MD Work Phone: [facility] 12-05-2024 17:15-0500 Body weight 109.[address] Ja Cooley MD Work Phone: [facility] 10-12-2024 13:02-0500 Body temperature 98.2 [degF] Dr. Ja Cooley MD Work Phone: [facility] 10-12-2024 13:02-0500 Diastolic blood pressure 84 mm[Hg] Dr. Ja Cooley MD Work Phone: [facility] 10-12-2024 13:02-0500 Heart rate 78 /min Dr. Ja Cooley MD Work Phone: [facility] 10-12-2024 13:02-0500 Respiratory rate 16 /min Dr. Ja Cooley MD Work Phone: [facility] 10-12-2024 13:02-0500 SaO2% (BldA) [Mass fraction] 95 % Dr. Ja Cooley MD Work Phone: [facility] 10-12-2024 13:02-0500 Systolic blood pressure 121 mm[Hg] Dr. Ja Cooley MD Work Phone: [facility] 10-12-2024 11:16-0500 Body mass index (BMI) [Ratio] 35.6 kg/m2 Dr. Ja Cooley MD Work Phone: [facility] 10-12-2024 11:16-0500 Body weight 112.[address] Ja Cooley MD Work Phone: [facility] 03-25-2024 14:24-0400 Body height 177.[address] Ja Cooley Work Phone: [facility] 03-25-2024 14:24-0400 Body mass index (BMI) [Ratio] 36.3 kg/m2 Dr. Ja Cooley Work Phone: [facility] 03-25-2024 14:24-0400 Body temperature 98 [degF] Dr. Ja Cooley Work Phone: [facility] 03-25-2024 14:24-0400 Body weight 114.[address] Ja Cooley Work Phone: [facility] 03-25-2024 14:24-0400 Diastolic blood pressure 58 mm[Hg] Dr. Ja Cooley Work Phone: [facility] 03-25-2024 14:24-0400 Heart rate 78 /min Dr. Ja Cooley Work Phone: [facility] 03-25-2024 14:24-0400 Respiratory rate 17 /min Dr. Ja Cooley Work Phone: [facility] 03-25-2024 14:24-0400 SaO2% (BldA) [Mass fraction] 94 % Dr. Ja Cooley Work Phone: [facility] 03-25-2024 14:24-0400 Systolic blood pressure 124 mm[Hg] Dr. Ja Cooley Work Phone: [facility] 11-23-2023 14:02-0500 Body height 177.[address] Ja Cooley Work Phone: [facility] 11-23-2023 14:02-0500 Body mass index (BMI) [Ratio] 37 kg/m2 Dr. Ja Cooley Work Phone: [facility] 11-23-2023 14:02-0500 Body temperature 97.8 [degF] Dr. Ja Cooley Work Phone: [facility] 11-23-2023 14:02-0500 Body weight 117.[address] Ja Cooley Work Phone: [facility] 11-23-2023 14:02-0500 Diastolic blood pressure 84 mm[Hg] Dr. Ja Cooley Work Phone: [facility] 11-23-2023 14:02-0500 Heart rate 75 /min Dr. Ja Cooley Work Phone: [facility] 11-23-2023 14:02-0500 Respiratory rate 17 /min Dr. Ja Cooley Work Phone: [facility] 11-23-2023 14:02-0500 SaO2% (BldA) [Mass fraction] 93 % Dr. Ja Cooley Work Phone: [facility] 11-23-2023 14:02-0500 Systolic blood pressure 112 mm[Hg] Dr. Ja Cooley Work Phone: [facility] 08-07-2023 14:26-0400 Body height 177.[address] Ja Cooley Work Phone: [facility] 08-07-2023 14:26-0400 Body mass index (BMI) [Ratio] 38 kg/m2 Dr. Ja Cooley Work Phone: [facility] 08-07-2023 14:26-0400 Body temperature 98.4 [degF] Dr. Ja Cooley Work Phone: [facility] 08-07-2023 14:26-0400 Body weight 120.[address] Ja Cooley Work Phone: [facility] 08-07-2023 14:26-0400 Diastolic blood pressure 88 mm[Hg] Dr. Ja Cooley Work Phone: [facility] 08-07-2023 14:26-0400 Heart rate 74 /min Dr. Ja Cooley Work Phone: [facility] 08-07-2023 14:26-0400 Respiratory rate 17 /min Dr. Ja Cooley Work Phone: [facility] 08-07-2023 14:26-0400 SaO2% (BldA) [Mass fraction] 96 % Dr. Ja Cooley Work Phone: 8(193)659-014336 [place] [address] 08-07-2023 14:26-0400 Systolic blood pressure 138 mm[Hg] Dr. Ja Cooley Work Phone: 8(152)547-189436 [place] [address] 04-12-2023 10:15-0400 Body height 177.[address] Ja Cooley Work Phone: 6(013)845-055736 [place] [address] 04-12-2023 10:15-0400 Body mass index (BMI) [Ratio] 37 kg/m2 Dr. Ja Cooley Work Phone: 8(875)568-667536 [place] [address] 04-12-2023 10:15-0400 Body weight 117.[address] Ja Cooley Work Phone: [facility] 04-12-2023 10:15-0400 Diastolic blood pressure 70 mm[Hg] Dr. Ja Cooley Work Phone: [facility] 04-12-2023 10:15-0400 Heart rate 60 /min Dr. Ja Cooley Work Phone: [facility] 04-12-2023 10:15-0400 Respiratory rate 18 /min Dr. Ja Cooley Work Phone: [facility] 04-12-2023 10:15-0400 Systolic blood pressure 119 mm[Hg] Dr. Ja Cooley Work Phone: [facility] 04-11-2023 21:17-0400 Diastolic blood pressure 74 mm[Hg] Dr. Ja Cooley Work Phone: [facility] 04-11-2023 21:17-0400 Systolic blood pressure 124 mm[Hg] Dr. Ja Cooley Work Phone: [facility] 04-11-2023 21:16-0400 Heart rate 61 /min Dr. Ja Cooley Work Phone: [facility] 04-11-2023 09:55-0400 Body mass index (BMI) [Ratio] 37.3 kg/m2 Dr. Ja Cooley Work Phone: [facility] 04-11-2023 09:55-0400 Body temperature 97.8 [degF] Dr. Ja Cooley Work Phone: [facility] 04-11-2023 09:55-0400 Body weight 118.[address] Ja Cooley Work Phone: [facility] 04-11-2023 09:55-0400 Diastolic blood pressure 66 mm[Hg] Dr. Ja Cooley Work Phone: [facility] 04-11-2023 09:55-0400 Heart rate 70 /min Dr. Ja Cooley Work Phone: [facility] 04-11-2023 09:55-0400 Respiratory rate 17 /min Dr. Ja Cooley Work Phone: [facility] 04-11-2023 09:55-0400 SaO2% (BldA) [Mass fraction] 98 % Dr. Ja Cooley Work Phone: [facility] 04-11-2023 09:55-0400 Systolic blood pressure 140 mm[Hg] Dr. Ja Cooley Work Phone: [facility] 02-11-2023 12:46-0400 Body height 177.8 cm [facility] 02-11-2023 12:46-0400 Body mass index (BMI) [Ratio] 36.8 kg/m2 [facility] [facility] 02-11-2023 12:46-0400 Body temperature 97 [degF] [facility] 02-11-2023 12:46-0400 Body weight 116.52 kg [facility] 02-11-2023 12:46-0400 Diastolic blood pressure 68 mm[Hg] [facility] 02-11-2023 12:46-0400 Heart rate 82 /min [facility] 02-11-2023 12:46-0400 Respiratory rate 18 /min [facility] 02-11-2023 12:46-0400 SaO2% (BldA) [Mass fraction] 97 % [facility] 02-11-2023 12:46-0400 Systolic blood pressure 149 mm[Hg] [facility] 12-12-2022 13:47-0500 Body height 177.8 cm Gary Ruiz APRN.YOUTH CAREER SPECIALIST Work Phone: [facility] 12-12-2022 13:47-0500 Body weight 118.3 kg Gary Ruiz APRN.YOUTH CAREER SPECIALIST Work Phone: [facility] 12-12-2022 13:47-0500 SaO2% (BldA) [Mass fraction] 96 % Gary Ruiz APRN.YOUTH CAREER SPECIALIST Work Phone: [facility] 08-04-2022 13:56-0400 Diastolic blood pressure 86 mm[Hg] Jaylyn Nieves MD Work Phone: [facility] 08-04-2022 13:56-0400 Heart rate 107 /min Jaylyn Nieves MD Work Phone: [facility] 08-04-2022 13:56-0400 Respiratory rate 16 /min Jaylyn Nieves MD Work Phone: [facility] 08-04-2022 13:56-0400 SaO2% (BldA) [Mass fraction] 95 % Jaylyn Nieves MD Work Phone: [facility] 08-04-2022 13:56-0400 Systolic blood pressure 109 mm[Hg] Jaylyn Nieves MD Work Phone: [facility] 04-12-2022 08:46-0400 Body height 177.[address] Patricia Mcgowan Work Phone: [facility] Work Phone: 04-12-2022 08:46-0400 Body mass index (BMI) [Ratio] 38.4 kg/m2 Dr. Patricia Mcgowan Work Phone: [facility] Work Phone: 04-12-2022 08:46-0400 Body weight 121.[address] Patricia Mcgowan Work Phone: [facility] Work Phone: 04-12-2022 08:46-0400 Diastolic blood pressure 71 mm[Hg] Dr. Patricia Mcgowan Work Phone: [facility] Work Phone: 04-12-2022 08:46-0400 Heart rate 86 /min Dr. Patricia Mcgowan Work Phone: [facility] Work Phone: 04-12-2022 08:46-0400 Respiratory rate 16 /min Dr. Patricia Mcgowan Work Phone: [facility] Work Phone: 04-12-2022 08:46-0400 SaO2% (BldA) [Mass fraction] 97 % Dr. Patricia Mcgowan Work Phone: [facility] Work Phone: 04-12-2022 08:46-0400 Systolic blood pressure 113 mm[Hg] Dr. Patricia Mcgowan Work Phone: [facility] Work Phone: 04-12-2022 08:46-0400 Body height 177.[address] Patricia Mcgowan Work Phone: [facility] Work Phone: 04-12-2022 08:46-0400 Body mass index (BMI) [Ratio] 38.4 kg/m2 Dr. Patricia Mcgowan Work Phone: [facility] Work Phone: 04-12-2022 08:46-0400 Body weight 121.[address] Patricia Mcgowan Work Phone: [facility] Work Phone: 04-12-2022 08:46-0400 Diastolic blood pressure 71 mm[Hg] Dr. Patricia Mcgowan Work Phone: [facility] Work Phone: 04-12-2022 08:46-0400 Heart rate 86 /min Dr. Patricia Mcgowan Work Phone: [facility] Work Phone: 04-12-2022 08:46-0400 Respiratory rate 16 /min Dr. Patricia Mcgowan Work Phone: [facility] Work Phone: 04-12-2022 08:46-0400 SaO2% (BldA) [Mass fraction] 97 % Dr. Patricia Mcgowan Work Phone: [facility] Work Phone: 04-12-2022 08:46-0400 Systolic blood pressure 113 mm[Hg] Dr. Patricia Mcgowan Work Phone: [facility] Work Phone: 03-29-2022 12:09-0400 SaO2% (BldA) [Mass fraction] 98 % Jaylyn Nieves MD Work Phone: [facility] 03-17-2022 15:50-0400 Diastolic blood pressure 77 mm[Hg] Jaylyn Nieves MD Work Phone: [facility] 03-17-2022 15:50-0400 Systolic blood pressure 120 mm[Hg] Jaylyn Nieves MD Work Phone: [facility] 03-17-2022 14:51-0400 Body height 177.8 cm Jaylyn Nieves MD Work Phone: [facility] 03-17-2022 14:51-0400 Body weight 125.76 kg Jaylyn Nieves MD Work Phone: [facility] 03-17-2022 14:51-0400 Heart rate 101 /min Jaylyn Nieves MD Work Phone: [facility] 03-17-2022 14:51-0400 SaO2% (BldA) [Mass fraction] 98 % Jaylyn Nieves MD Work Phone: [facility] 01-28-2022 02:11-0500 Diastolic blood pressure 89 mm[Hg] Dr. Patricia Mcgowan Work Phone: [facility] Work Phone: 01-28-2022 02:11-0500 Heart rate 96 /min Dr. Patricia Mcgowan Work Phone: [facility] Work Phone: 01-28-2022 02:11-0500 Respiratory rate 18 /min Dr. Patricia Mcgowan Work Phone: [facility] Work Phone: 01-28-2022 02:11-0500 SaO2% (BldA) [Mass fraction] 94 % Dr. Patricia Mcgowan Work Phone: [facility] Work Phone: 01-28-2022 02:11-0500 Systolic blood pressure 158 mm[Hg] Dr. Patricia Mcgowan Work Phone: [facility] Work Phone: 01-28-2022 01:22-0500 Body mass index (BMI) [Ratio] 399.4 kg/m2 Dr. Patricia Mcgowan Work Phone: [facility] Work Phone: 01-28-2022 01:22-0500 Body temperature 97.6 [degF] Dr. Patricia Mcgowan Work Phone: [facility] Work Phone: 01-28-2022 01:22-0500 Body weight [address] Patricia Mcgowan Work Phone: [facility] Work Phone: 01-28-2022 01:11-0500 Diastolic blood pressure 89 mm[Hg] [facility] Work Phone: 01-28-2022 01:11-0500 Heart rate 96 /min [facility] Work Phone: 01-28-2022 01:11-0500 Respiratory rate 18 /min [facility] Work Phone: 01-28-2022 01:11-0500 SaO2% (BldA) [Mass fraction] 94 % [facility] Work Phone: 01-28-2022 01:11-0500 Systolic blood pressure 158 mm[Hg] [facility] Work Phone: 01-28-2022 00:22-0500 Body height 177.8 cm [facility] Work Phone: 01-28-2022 00:22-0500 Body mass index (BMI) [Ratio] 399.4 kg/m2 [facility] Work Phone: 01-28-2022 00:22-0500 Body temperature 97.6 [degF] [facility] Work Phone: 01-28-2022 00:22-0500 Body weight 1263 kg [facility] Work Phone: 10-05-2021 11:00-0500 Diastolic blood pressure 63 mm[Hg] Barb Morton MD Work Phone: [facility] Comment on above: Auto 10-05-2021 11:00-0500 Heart rate 99 /min Barb Morton MD Work Phone: [facility] 10-05-2021 11:00-0500 Systolic blood pressure 91 mm[Hg] Barb Morton MD Work Phone: [facility] Comment on above: Auto 11-16-2021 10:45-0500 Body weight 116.57 kg Barb Morton MD Work Phone: [facility] 05-19-2021 10:00-0400 Diastolic blood pressure 70 mm[Hg] Nii Altman MD Work Phone: [facility] Work Phone: 05-19-2021 10:00-0400 Heart rate 91 /min Nii Altman MD Work Phone: [facility] Work Phone: 05-19-2021 10:00-0400 Respiratory rate 15 /min Nii Altman MD Work Phone: [facility] Work Phone: 05-19-2021 10:00-0400 SaO2% (BldA) [Mass fraction] 96 % Nii Altman MD Work Phone: [facility] Work Phone: 05-19-2021 10:00-0400 Systolic blood pressure 119 mm[Hg] Nii Altman MD Work Phone: [facility] Work Phone: 05-19-2021 08:51-0400 Body temperature 97.11 [degF] Nii Altman MD Work Phone: [facility] Work Phone: 05-19-2021 06:58-0400 Body height 177.8 cm Nii Altman MD Work Phone: [facility] Work Phone: 05-19-2021 06:58-0400 Body mass index (BMI) [Ratio] 38.88 kg/m2 Nii Altman MD Work Phone: [facility] Work Phone: 05-19-2021 06:58-0400 Body weight 122.92 kg Nii Altman MD Work Phone: [facility] Work Phone: 05-11-2021 09:45-0400 Body mass index (BMI) [Ratio] 38.88 kg/m2 Raeann Holland [employer] OPERATOR - YOUTH CAREER SPECIALIST Work Phone: [facility] Work Phone: 05-11-2021 09:45-0400 Body weight 122.92 kg Raeann Holland [employer] OPERATOR - YOUTH CAREER SPECIALIST Work Phone: [facility] Work Phone: Comment on [...] 122.92 kg Nii Altman MD Work Phone: [facility] Work Phone: Encounters Encounter Date Encounter Type Care Provider Facility Start: 09-18-2025 ambulatory Ja Cooley Facilit y:[facility] Start: 09-09-2025 ambulatory Mechelle Gudla OLS Facili ty:[facility] Start: 09-02-2025 ambulatory Mechelle Gudla OLS Facili ty:[facility] Start: 08-28-2025 ambulatory Mechelle Gudla OLS Facili ty:[facility] Start: 08-22-2025 End: 08-26-2025 Evaluation and management of inpatient JA COOLEY Facility:[facility] Start: 08-22-2025 End: 08-22-2025 Dr. Ja Cooley MD Work Phone: -Emergency Department Work Phone: Start: 08-22-2025 End: 08-22-2025 Emergency department patient visit Dr. Ja Cooley MD Work Phone: -Emergency Department Start: 08-15-2025 Dr. Ja marcos MD -[facility] Start: 08-15-2025 End: 08-15-2025 ambulatory Ja Cooley Facility:[facility] Start: 07-12-2025 End: 07-12-2025 Dr. Surya Dumont MD -Emergency Departmen t Work Phone: Start: 07-12-2025 End: 07-12-2025 Emergency department patient visit Dr. Ja Cooley MD Work Phone: -Emergency Department Work Phone: Start: 07-07-2025 End: 07-07-2025 Dr. Yadiel Deras MD -Emergency Departmen t Work Phone: Start: 07-07-2025 End: 07-07-2025 Emergency department patient visit Dr. Ja Cooley MD Work Phone: -Emergency Department Work Phone: Start: 07-05-2025 ambulatory Ja Cooley Facilit y:[facility] Start: 07-05-[address] Ja Cooley MD -[facility] Work Phone: Start: 07-05-2025 Dr. Ja marcos MD -[facility] Work Phone: Start: 07-04-2025 ambulatory Curt Sosa lity:[facility] Start: 06-27-2025 End: 06-27-2025 Patient encounter procedure Christel Bae METROLOGY TECHNICIAN-C -[facility] Work Phone: Start: 06-27-2025 End: 06-27-2025 Christel Bae METROLOGY TECHNICIAN-C -[facility] Work Phone: Start: 06-27-2025 End: 06-27-[address] Ja Cooley MD Work Phone: -[facility] Start: 06-26-2025 End: 06-26-[address] Vick Santo MD -[facility] Work Phone: Start: 06-26-2025 End: 06-26-2025 Dr. Vick Santo MD -[facility] Work Phone: Start: 06-26-2025 End: 06-26-[address] Ja Cooley MD Work Phone: -[facility] Start: 06-24-2025 End: 06-24-[address] Curt Isaacs MD -[facility] Work Phone: Start: 06-24-2025 End: 06-24-2025 Dr. Curt Isaacs MD -[facility] Work Phone: Start: 06-24-2025 End: 06-24-[address] Ja Cooley MD Work Phone: -[facility] Start: 06-19-2025 End: 06-19-2025 Dr. [facility]ury[facility] Work Phone: Start: 06-19-2025 End: 06-19-2025 Emergency department patient visit Dr. Ja Cooley MD Work Phone: -Emergency Department Work Phone: Start: 06-12-2025 End: 06-12-2025 Dr. Maty Dial DO -Emergency Department Work Phone: Start: 06-12-2025 End: 06-12-2025 Emergency department patient visit Dr. Ja Cooley MD Work Phone: -Emergency Department Work Phone: Start: 06-09-2025 Non-patient / Non-visit Dr. Analy Narayanan MD -[facility] Work Phone: Start: 06-09-2025 Dr. Daphnie sosa MD -[facility] Work Phone: Start: 06-09-2025 ambulatory Vladimir Sears Facility:[facility] Start: 06-09-2025 Non-patient / Non-visit Dr. Pratik GARZA -[facility] Start: 06-09-2025 Dr. Vladimir Sears MD [facility] Start: 06-09-2025 ambulatory Guillermo Zavala Facility:[facility] Start: 06-09-2025 Non-patient / Non-visit Dr. Guillermo hernández MD -[facility] Start: 06-09-2025 Dr. Guillermo Zavala MD [facility] Start: 06-08-2025 End: 06-09-2025 ambulatory Ja Cooley Facility:[facility] Start: 06-08-2025 End: 06-09-2025 Evaluation and management of inpatient Dr. Geo Garza DO -Progressive Care Unit Work Phone: Start: 06-08-2025 End: 06-09-[address] Ja Cooley MD Work Phone: -Progressive Care Unit Start: 06-08-2025 End: 06-09-2025 Dr. Daphnie Narayanan MD -Progressive Care Unit Work Phone: Start: 05-26-2025 End: 05-26-[address] Ja Cooley MD Work Phone: -Laboratory [facility] Start: 05-26-2025 End: 05-26-[address] Natasha Gregory MD -[facility] Start: 05-26-2025 End: 05-26-2025 Dr. Natasha Gregory MD -[facility] Start: 05-26-2025 End: 05-26-2025 ambulatory Natasha Gregory Facility:[facility] Start: 05-14-2025 End: 05-14-[address] Ja Cooley MD Work Phone: -Speech Therapy Start: 05-14-2025 End: 05-14-[address] Vick Santo MD -Speech Therapy Work Phone: Start: 05-14-[address] Olivier Santo MD -Speech Therapy Work Phone: Start: 05-14-2025 End: 05-14-2025 Dr. Vick Santo MD -Speech Therapy Work Phone: Start: 05-11-2025 End: 05-11-2025 Dr. Dano Minor [facility] Work Phone: Start: 05-11-2025 End: 05-11-2025 Emergency department patient visit Dr. Ja Cooley MD Work Phone: -Emergency Department Work Phone: Start: 05-09-2025 End: 05-09-[address] Ja Cooley MD Work Phone: [facility] Work Phone: Start: 05-09-2025 End: 05-09-[address] Vick Santo MD -Radiology [facility] Work Phone: Start: 05-09-2025 End: 05-09-2025 Dr. Vick Santo MD -Radiology [facility] Work Phone: Start: 05-09-2025 End: 05-09-2025 ambulatory Vick Santo Facility:[facility] Start: 05-07-[address] Olivier Santo MD -Speech Therapy Work Phone: Start: 04-13-2025 End: 04-13-2025 Emergency department patient visit Chetan Powell MD Work Phone: [facility] Comment on above: Facial laceration, i nitial encounter (Primary Dx); Fall, initial encounter; Open fracture of nasal bone, initial encounter Start: 04-09-2025 End: 04-09-2025 Emergency department patient visit Dr. Ja Cooley MD Work Phone: -Emergency Department Work Phone: Start: 04-03-2025 End: 04-03-[address] Ja Cooley MD -Laboratory [facility] Start: 04-03-2025 End: 04-03-2025 ambulatory NATASHA GREGORY MD Facility:[facility] Start: 04-03-2025 End: 04-03-2025 ambulatory Ja Cooley Facility:[facility] Start: 04-01-[address] Olivier Santo MD -Speech Therapy Work Phone: Start: 03-26-[address] Olivier Santo MD -Speech Therapy Work Phone: Start: 03-24-2025 End: 03-24-[address] Ja Cooley MD Work Phone: [facility] Work Phone: Start: 03-24-2025 End: 03-24-[address] Jose Perez MD -Cat Scan, [facility] Work Phone: Start: 03-24-2025 End: 03-24-2025 ambulatory Ja Cooley Facility:[facility] Start: 03-20-2025 End: 03-20-[address] Vick Santo MD -[facility] Work Phone: Start: 03-20-2025 End: 03-20-2025 ambulatory Vick Santo Facility:[facility] Start: 03-03-2025 End: 03-03-[address] Ja Cooley MD Work Phone: [facility] Work Phone: Start: 03-03-2025 End: 03-03-[address] Jose Perez MD -[facility], [facility] Start: 03-03-2025 End: 03-03-2025 ambulatory Ja Cooley Facility:[facility] Start: 02-25-[address] Olivier Santo MD -Speech Therapy Work Phone: Start: 02-20-2025 End: 02-20-[address] Ja Cooley MD Work Phone: [facility] Work Phone: Start: 02-20-2025 End: 02-20-[address] Natasha Gregory MD -[facility], [facility] Start: 02-20-2025 End: 02-20-2025 ambulatory Natasha Gregory Facility:[facility] Start: 02-14-2025 End: 02-14-2025 Emergency department patient visit Dr. Ja Cooley MD Work Phone: -Emergency Department Work Phone: Start: 02-06-2025 End: 02-06-[address] Vick Santo MD -[facility] Work Phone: Start: 02-06-2025 End: 02-06-2025 ambulatory Vick Santo Facility:[facility] Start: 01-21-2025 End: 01-21-[address] Ja Cooley MD Work Phone: [facility] Work Phone: Start: 01-21-2025 End: 01-21-[address] Ja Cooley MD -Radiology, [place] Work Phone: Start: 01-21-2025 End: 01-21-2025 ambulatory Ja Cooley Facility:[facility] Start: 12-10-2024 End: 12-10-[address] Vick Santo MD -[facility] Work Phone: Start: 12-10-2024 End: 12-10-2024 ambulatory Vick Santo Facility:[facility] Start: 12-10-2024 End: 12-10-2024 ambulatory Ja Cooley Facility:[facility] Start: 12-05-2024 End: 12-05-2024 Emergency department patient visit Dr. Estuardo Mccormack DO -Emergency Department Work Phone: Start: 12-04-2024 End: 12-04-[address] [facility] Start: 12-04-2024 End: 12-04-2024 ambulatory Ja Cooley Facility:[facility] Start: 12-02-2024 End: 12-02-[address] [facility] Start: 12-02-2024 End: 12-02-2024 ambulatory Ja Cooley Facility:[facility] Start: 10-28-2024 End: 10-28-[address] [facility] Start: 10-28-2024 End: 10-28-2024 ambulatory Natasha Gregory Facility:[facility] Start: 10-12-2024 End: 10-12-2024 Emergency department patient visit Dr. Osman Farooq MD -Emergency Department Work Phone: Start: 09-27-2024 End: 09-27-2024 ambulatory Imer Gee Facility:[facility] Start: 03-25-2024 End: 03-25-[address] Ja Cooley Work Phone: [facility] Work Phone: Start: 03-25-2024 End: 03-25-[address] Ja Cooley Work Phone: [facility] Work Phone: Start: 03-25-2024 End: 03-25-[address] Ja Cooley Work Phone: [facility] Work Phone: Start: 02-27-2024 End: 02-27-[address] Ja Cooley Work Phone: [facility] Work Phone: Start: 02-27-2024 End: 02-27-[address] Ja Cooley Work Phone: [facility] Start: 01-30-2024 End: 01-30-[address] Ja Cooley Work Phone: [facility] Work Phone: Start: 01-30-2024 End: 01-30-[address] Ja Cooley Work Phone: [facility] Work Phone: Start: 12-26-2023 End: 12-26-[address] Ja Cooley Work Phone: [facility] Work Phone: Start: 12-26-2023 End: 12-26-[address] Ja Cooley Work Phone: [facility] Work Phone: Start: 12-15-2023 End: 12-15-[address] Ja Cooley Work Phone: [facility] Work Phone: Start: 12-15-2023 End: 12-15-[address] Ja Cooley Work Phone: [facility] Work Phone: Start: 11-23-2023 End: 11-23-[address] Ja Cooley Work Phone: [facility] Start: 11-23-2023 End: 11-23-[address] Ja Cooley Work Phone: [facility]rology Work Phone: Start: 11-22-2023 End: 11-22-[address] Ja Cooley Work Phone: [facility] Work Phone: Start: 11-22-2023 End: 11-22-[address] Ja Cooley Work Phone: [facility] Work Phone: Start: 10-31-2023 End: 10-31-[address] Ja Cooley Work Phone: [facility] Work Phone: Start: 10-31-2023 End: 10-31-[address] Ja Cooley Work Phone: [facility] Start: 09-07-2023 End: 09-07-[address] Ja Cooley Work Phone: [facility] Work Phone: Start: 08-07-2023 End: 08-07-[address] Ja Cooley Work Phone: [facility] Work Phone: Start: 08-03-2023 End: 08-03-[address] Ja Cooley Work Phone: [facility] Work Phone: Start: 06-21-2023 Non-patient / Non-visit Dr. Rimma Cooley Work Phone: [facility] Start: 06-21-2023 End: 06-21-[address] Ja Cooley Work Phone: [facility] Work Phone: Start: 06-21-2023 End: 06-21-[address] Ja Cooley Work Phone: [facility]-Pulmonary Services/Neurology Work Phone: Start: 05-18-2023 End: 05-18-[address] Ja Cooley Work Phone: [facility] Work Phone: Start: 05-18-2023 End: 05-18-[address] Ja Cooley Work Phone: [facility] Work Phone: Start: 05-09-2023 End: 05-09-[address] Ja Cooley Work Phone: [facility] Work Phone: Start: 05-09-2023 End: 05-09-[address] Ja Cooley Work Phone: [facility] Start: 05-02-2023 End: 05-02-[address] Ja Cooley Work Phone: [facility] Work Phone: Start: 05-02-2023 End: 05-02-[address] Ja Cooley Work Phone: [facility]-Physical Therapy Work Phone: Start: 05-02-[address] Ja Cooley Work Phone: [facility]-Physical Therapy Start: 05-01-2023 End: 05-01-[address] Ja Cooley Work Phone: [facility] Work Phone: Start: 05-01-2023 End: 05-01-[address] Ja Cooley Work Phone: [facility] Start: 04-12-2023 End: 04-12-[address] Ja Cooley Work Phone: [facility] Start: 04-11-2023 End: 04-11-[address] Ja Cooley Work Phone: [facility] Neurology Start: 02-21-2023 End: 02-21-2023 ambulatory [facility] Work Phone: Start: 02-21-2023 End: 02-21-2023 Patient encounter procedure [facility] Start: 02-14-2023 Telephone encounter Jaylyn peck MD Work Phone: Neurology Comment on above: Patient Update (Incr eased falls, aggression) Start: 02-11-2023 End: 02-11-2023 Emergency department patient visit [facility]-Emergency Department Start: 01-10-2023 Telephone encounter Jaylyn peck MD Work Phone: Neurology Comment on above: Patient Update Start: 01-04-2023 End: 01-04-2023 ambulatory [facility] Work Phone: Start: 01-04-2023 End: 01-04-2023 Patient encounter procedure [facility] Start: 12-12-2022 End: 12-12-2022 ambulatory Gary Ruiz APRN.CNP Work Phone: Neurology Comment on above: TAMULOSIN Start: 12-12-2022 End: 12-12-2022 Office outpatient new 20 minutes Gary Ruiz APRN.CNP Work Phone: Neurology Comment on above: Parkinsonism, unspec ified Parkinsonism type (HCC) (Primary Dx); Orthostatic hypotension; Anxiety Start: 10-10-2022 Telephone encounter Jaylyn peck MD Work Phone: Neurology Comment on above: Patient Update (Incr eased shaking in AM ) Start: 10-04-2022 End: 10-04-2022 ambulatory WILLIS RYDER Facility:[facility] Start: 10-04-2022 End: 10-04-2022 ambulatory Willis Ryder PT, DPT Work Phone: [facility] Physical Therapy Comment on above: Parkinsonism, unspec ified Parkinsonism type (HCC) (Primary Dx); Gait instability; Leg weakness, bilateral; Imbalance Start: 09-16-2022 End: 09-16-2022 ambulatory [facility] Work Phone: Start: 09-16-2022 End: 09-16-2022 Patient encounter procedure [facility]-Laboratory, [facility] Start: 09-15-2022 End: 09-15-2022 ambulatory Jaylyn Nieves MD Work Phone: Neurology Comment on above: CYMBALTA Start: 09-12-2022 Telephone encounter Jaylyn peck MD Work Phone: [facility] Comment on above: Other (PD Symptoms W orsening) Start: 09-02-2022 End: 09-02-2022 [facility] Aleida Ramirez MD Work Phone: [facility] Comment on above: MELISSA (generalized anx iety disorder) (Primary Dx); Depression, unspecified depression type; Parkinsonism, unspecified Parkinsonism type (HCC) Start: 08-25-2022 End: 08-25-2022 ambulatory JA COOLEY Facility:[facility] Start: 08-25-2022 End: 08-25-2022 ambulatory Willis Ryder PT, DPT Work Phone: [facility] Physical Therapy Comment on above: Parkinsonism, unspec ified Parkinsonism type (HCC) (Primary Dx); Gait instability; Leg weakness, bilateral; Imbalance Start: 08-11-2022 End: 08-11-2022 ambulatory [facility] Facility:[facility] Start: 08-08-2022 ambulatory Jaylyn jennings MD [...] 08-01-[address] Patricia Mcgowan Work Phone: [facility] Work Phone: Start: 08-01-2022 End: 08-01-[address] Patricia Mcgowan Work Phone: [facility] Start: 07-21-2022 Telephone encounter Jaylyn peck MD Work Phone: Neurology Comment on above: Appointment (Earlier appointment request d/t worsening symptoms ) Start: 06-21-2022 End: 06-21-[address] Patricia Mcgowan Work Phone: [facility] Start: 06-20-2022 End: 06-20-[address] Patricia Mcgowan Work Phone: [facility] Start: 05-18-2022 Refill Jaylyn jennings MD Work Phone: [facility] Comment on above: Refill Request Start: 05-16-2022 Non-patient / Non-visit Dr. Danya Mcgowan Work Phone: [facility] Start: 05-16-2022 End: 05-16-[address] Patricia Mcgowan Work Phone: [facility]-Cardiovascul ar Services Start: 04-25-2022 End: 04-25-[address] aPtricia Mcgowan Work Phone: [facility]-Laboratory, [place] Start: 04-12-2022 End: 04-12-[address] Patricia Mcgowan Work Phone: [facility] Start: 04-07-2022 End: 04-07-2022 Patient encounter procedure [facility] Start: 03-29-2022 End: 03-29-2022 ambulatory Maine Medel PT, DPT Work Phone: [facility] Comment on above: Parkinson disease (H CC) (Primary Dx) Start: 03-29-2022 End: 03-29-2022 Patient encounter procedure Michelle Ro CCC-SUPERVISOR CRACK OFF Work Phone: [facility] Out[facility] Speech Therapy Comment on above: [...] 03-10-2022 End: 03-10-2022 Patient encounter procedure [facility] Start: 02-10-2022 Documentation procedure Jaspreet Ríos [facility], [facility] Start: 01-28-2022 End: 01-28-2022 Emergency department patient visit [facility]-Emergency Department Start: 12-31-2021 End: 12-31-2021 Patient encounter procedure [facility] Start: 12-21-2021 End: 12-21-2021 ambulatory [facility] Start: 12-21-2021 End: 12-21-2021 Office outpatient visit 15 minutes Barb Morton MD Work Phone: [facility], Neuroscience Comment on above: Parkinson's disease (HCC) (Primary Dx) Start: 12-15-2021 End: 12-16-2021 ambulatory [facility] Start: 12-15-2021 End: 12-16-2021 ambulatory [facility] Start: 12-05-2021 ambulatory [facility] Start: 11-18-2021 ambulatory [facility] Start: 11-15-2021 Patient encounter procedure [facility] Start: 11-09-2021 [facility] Start: 11-05-2021 Documentation procedure Jim Bradford RN [facility], Neuroscience Start: 11-03-2021 Documentation procedure Jaspreet Ríos [facility] Neuro[facility] Start: 11-01-2021 End: 11-02-2021 ambulatory [facility] Start: 10-28-2021 End: 11-01-2021 ambulatory Barb Morton MD Work Phone: [facility] Comment on above: Tremor; Impaired mobility and activities of daily living; Impairment of balance Start: 10-05-2021 End: 10-05-2021 ambulatory [facility] Start: 10-05-2021 End: 10-05-2021 Office outpatient visit 25 minutes Barb Morton MD Work Phone: [facility] Comment on above: Tremor (Primary Dx) Start: 09-27-2021 Transcribe Orders Patricia Mcgowan MD Work Phone: [facility], [facility] Comment on above: Tremor, essential (P rimary Dx) Start: 05-19-2021 End: 05-19-2021 Subsequent hospital visit by physician Nii Altman MD Work Phone: [facility] General Surgery Comment on above: Arrived Start: 05-11-2021 End: 05-11-2021 Patient encounter status Raeann Holland APRN - YOUTH CAREER SPECIALIST Work Phone: [facility] Start: 05-11-2021 End: 05-11-2021 Subsequent hospital visit by physician Raeann Holland [employer] M[employer] OPERATOR - YOUTH CAREER SPECIALIST Work Phone: [facility] Comment on above: Abnormal electrocard iogram (ECG) (EKG); Shortness of breath; Pre-op testing; Abnormal EKG Start: 05-05-2021 End: 05-05-2021 Patient encounter status Nii Altman MD Work Phone: [facility] Pre-Admit Testing Start: 05-05-2021 End: 05-05-2021 Subsequent hospital visit by physician Nii Altman MD Work Phone: [facility] Pre-Admit Testing Comment on above: Pre-op testing (Prim sophie Dx); Abnormal EKG; Shortness of breath Start: 04-12-2021 Patient encounter status [facility] Work Phone: Start: 08-14-2006 End: 08-14-2006 Patient encounter procedure Wyatt Noble Work Phone: [facility] Start: 08-14-2006 Results Only Wyatt Donaldson x Work Phone: [facility] Start: 02-03-2006 End: 02-03-2006 Patient encounter procedure Wyatt G Noble Work Phone: [facility] Start: 02-03-2006 Results Only Wyatt Valleo x Work Phone: [facility] Procedures Date Procedure Procedure Detail Performing Clinician Start: 08-22-2025 Antibody screen JA MAGUIRE Comment on above: Order Comment: Speci men Type: BLOOD SPECIMENOrdering Facility: [facility] [place] [facility] Address: [address] [place] [address] Performed By: #### T SCR ####[facility] BLOOD BANKCLIA [id number] [place] [address] [place] Start: 08-22-2025 Calculation of international normalized ratio Dr. Ja Cooley MD Work Phone: Start: 08-22-[address] Ja Cooley MD Work Phone: Start: 08-22-2025 Mean corpuscular hemoglobin concentration determination Dr. Ja Cooley MD Work Phone: Start: 08-22-[address] Rimma Cooley MD Work Phone: Start: 08-22-2025 Nucleated red blood cell count procedure Dr. Ja Cooley MD Work Phone: Start: 08-22-2025 Platelet mean volume determination Dr. Ja Cooley MD Work Phone: Start: 08-22-2025 CT cervical spine wi thout contrast Dr. Ja Cooley MD Work Phone: Start: 08-22-2025 CT of head without contrast Dr. Ja Cooley MD Work Phone: Start: 08-22-[address] Ja valle MD Work Phone: Start: 08-15-2025 Mean corpuscular hemoglobin concentration determination Dr. Ja Cooley MD Work Phone: Start: 08-15-[address] Rimma Cooley MD Work Phone: Start: 08-15-2025 Nucleated red blood cell count procedure Dr. Ja Cooley MD Work Phone: Start: 08-15-2025 Platelet mean volume determination Dr. Ja Cooley MD Work Phone: Start: 08-15-2025 Total cholesterol:HD L ratio measurement Dr. Ja Cooley MD Work Phone: Start: 08-15-[address] Ja Cooley MD Work Phone: Start: 08-15-2025 Vitamin D, 25-hydrox y measurement Dr. Ja Cooley MD Work Phone: Start: 07-12-[address] Ja Cooley MD Work Phone: Start: 07-12-2025 Urine microscopy: re d cells Dr. Ja Cooley MD Work Phone: Start: 07-12-2025 Urnls dip stick/tabl et reagent auto microscopy Dr. Ja Cooley MD Work Phone: Start: 07-12-2025 CT of head without contrast Dr. Ja Cooley MD Work Phone: Start: 07-12-[address] Ja Cooley MD Work Phone: Start: 07-07-2025 X-ray of knee, four or more views Dr. Ja Cooley MD Work Phone: Start: 07-07-2025 CT cervical spine wi thout contrast Dr. Ja Cooley MD Work Phone: Start: 07-07-2025 CT of head without contrast Dr. Ja Cooley MD Work Phone: Start: 07-05-2025 Urine microscopy: re d cells Dr. Ja Cooley MD Work Phone: Start: 07-05-2025 Urnls dip stick/tabl et reagent auto microscopy Dr. Ja Cooley MD Work Phone: Start: 07-05-[address] Ja Cooley MD Work Phone: Start: 06-19-2025 CT of head without contrast Dr. Ja Cooley MD Work Phone: Start: 06-12-2025 Urine microscopy: re d cells Dr. Ja Cooley MD Work Phone: Start: 06-12-2025 Urnls dip stick/tabl et reagent auto microscopy Dr. Ja Cooley MD Work Phone: Start: 06-12-[address] Ja Cooley MD Work Phone: Start: 06-12-2025 Mean corpuscular hemoglobin concentration determination Dr. Ja Cooley MD Work Phone: Start: 06-12-[address] Rimma Cooley MD Work Phone: Start: 06-12-2025 Nucleated red blood cell count procedure Dr. Ja Cooley MD Work Phone: Start: 06-12-2025 Platelet mean volume determination Dr. Ja Cooley MD Work Phone: Start: 06-12-2025 CT cervical spine wi thout contrast Dr. Ja Cooley MD Work Phone: Start: 06-12-2025 CT of head without contrast Dr. Ja Cooley MD Work Phone: Start: 06-09-[address] Ja Cooley MD Work Phone: Start: 06-09-2025 Mean corpuscular hemoglobin concentration determination Dr. Ja Cooley MD Work Phone: Start: 06-09-[address] Rimma Cooley MD Work Phone: Start: 06-09-2025 Nucleated red blood cell count procedure Dr. Ja Cooley MD Work Phone: Start: 06-09-2025 Platelet mean volume determination Dr. Ja Cooley MD Work Phone: Start: 06-09-2025 Serum inorganic phos phate measurement Dr. Ja Cooley MD Work Phone: Start: 06-09-2025 Total cholesterol:HD L ratio measurement Dr. Ja Cooley MD Work Phone: Start: 06-09-[address] Ja Cooley MD Work Phone: Start: 06-08-2025 Benzodiazepine measurement, urine Dr. Ja Cooley MD Work Phone: Start: 06-08-2025 Cocaine measurement, urine Dr. Ja Cooley MD Work Phone: Start: 06-08-2025 Methadone measuremen t, urine Dr. Ja Cooley MD Work Phone: Start: 06-08-[address] Ja Cooley MD Work Phone: Start: 06-08-2025 Urine microscopy: re d cells Dr. Ja Cooley MD Work Phone: Start: 06-08-[address] Ja Cooley MD Work Phone: [...] Work Phone: Comment on above: Performed at: [address] [id number] Director: Vj Garcia PhD, Phone: [phone] Start: 05-09-[address] Ja valle MD [...] 05-11-2021 ECHOCARDIOGRAM PHARMACOLOGICAL STRESS TEST Raeann Holland [employer] M[employer] OPERATOR - YOUTH CAREER SPECIALIST Work Phone: Start: 05-05-2021 Antibody screen Nii Charlton MD Work Phone: Start: 05-05-2021 Blood count complete automated Raeann Holland [employer] M[employer] OPERATOR - YOUTH CAREER SPECIALIST Work Phone: Start: 05-05-2021 Blood typing serologic abo Raeann Holland [employer] M[employer] OPERATOR - YOUTH CAREER SPECIALIST Work Phone: Start: 05-05-2021 Ecg routine ecg w/le ast 12 lds w/i&r Raeann Holland [employer] M[employer] OPERATOR - YOUTH CAREER SPECIALIST Work Phone: Start: 08-14-2006 CONVERTED SURGICAL PATHOLOGY Wyatt Noble Work Phone: Start: 02-03-2006 CONVERTED SURGICAL PATHOLOGY Wyatt Noble Work Phone: History of operative procedure on knee History of knee joint replacement Dr. Ja Cooley MD Work Phone: Plan of Treatment Date Care Activity Detail Author Start: 12-05-2034 DTaP/Tdap/Td Vaccines (4 - Td or Tdap) DTaP/Tdap/Td Vaccines (4 - Td or Tdap) [facility] Start: 01-25-2031 Tetanus vaccination Tetanus: Every 10yrs [facility] Start: 08-22-2025 [facility] Start: 07-12-2025 [facility] Start: 07-12-2025 [facility] Start: 07-12-2025 Bacteria identified in Urine by Culture Urine Culture [facility] Start: 07-07-2025 [facility] Start: 07-05-2025 Urine culture Urine Culture [facility] Start: 07-05-2025 [facility] Start: 06-27-2025 24 Hour ECG [facility] Start: 06-27-2025 End: 06-27-2025 Evaluation of diagnostic study results [facility] Start: 06-24-2025 [facility] Start: 06-19-2025 [facility] Start: 06-19-2025 Simple repair f/e/e/n/l/m 2.5cm/< [facility] Start: 06-12-2025 [facility] Start: 06-12-2025 [facility] Start: 06-09-2025 Patient discharge [facility] Start: 06-09-2025 Referral to service [facility] Start: 06-09-2025 Speech therapy assessment [facility] Start: 06-09-2025 Inhalation therapy procedure [facility] Start: 06-08-2025 Following clinical pathway protocol [facility] Start: 06-08-2025 Assessment of risk of venous thromboembolism [facility] Start: 06-08-2025 End: 06-08-2025 Care regimes management [facility] Start: 06-08-2025 Incentive spirometry [facility] Start: 06-08-2025 Insertion of catheter into peripheral vein [facility] Start: 06-08-2025 Measuring intake and output [facility] Start: 06-08-2025 End: 06-08-2025 Notification of physician [facility] Start: 06-08-2025 Oxygen therapy [facility] Start: 06-08-2025 Providing care according to standard [facility] Start: 06-08-2025 Provision of activity privileges [facility] Start: 06-08-2025 Referral for physical therapy [facility] Start: 06-08-2025 Referral to occupational therapist [facility] Start: 06-08-2025 Referral to service [facility] Start: 06-08-2025 End: 06-08-2025 [facility] Start: 06-08-2025 [facility] Start: 06-08-2025 Verification routine [facility] Start: 06-08-2025 Admission procedure [facility] Start: 06-08-2025 Hospital admission, emergency, from emergency room, medical nature [facility] Start: 06-08-2025 [facility] Start: 06-08-2025 [facility] Start: 05-11-2025 [facility] Start: 04-09-2025 Simple repair scalp/neck/ax/genit/trun k 2.5cm/< RPR S/N/AX/GEN/TRNK 2.5CM/< [facility] Start: 04-09-2025 [facility] Start: 03-24-2025 CT Chest WO [facility] Start: 03-24-2025 CT of chest without contrast Chest without Contrast [facility] Start: 02-14-2025 [facility] Start: 01-04-2025 Patient referral [facility] Work Phone: Start: 12-11-2024 Patient referral [facility] Work Phone: Start: 12-05-2024 [facility] Start: 12-05-2024 Simple repair f/e/e/n/l/m 2.6cm-5.0 cm RPR F/E/E/N/L/M 2.6-5.0 CM [facility] Start: 11-11-2024 COVID-19 Vaccine ( season) COVID-19 Vaccine () [facility] Start: 10-12-2024 Incentive spirometry [facility] Start: 10-12-2024 End: 10-12-2024 [facility] Start: 04-02-2024 Patient referral [facility] Work Phone: Start: 03-25-2024 Acetylcholine receptor blocking Ab [Presence] in Serum [facility] Start: 03-25-2024 Acetylcholine receptor modulating antibody measurement [facility] Start: 11-23-2023 Serum immunofixation [facility] Start: 11-23-2023 Urine immunofixation [facility] Start: 05-09-2023 Early and lambda light chains [facility] Start: 05-09-2023 Thiamine measurement [facility] Start: 03-11-2023 Adult depression screening assessment DEPRESSION SCREENING [facility] Start: 11-20-2022 ADVANCE DIRECTIVE DISCUSSION ADVANCE DIRECTIVE DISCUSSION [facility] Start: 11-20-2022 [address]ESS[address] [facility] Start: 07-21-2022 Influenza vaccination INFLUENZA (#1) [facility] Start: 05-05-2022 Creatinine measurement Creatinine monitoring [employer] Work Phone: Start: 05-05-2022 Diabetes: Estimated Glomerular Filtration Rate for [facility] Diabetes: Estimated Glomerular Filtration Rate for [facility] Start: 05-05-2022 Potassium monitoring Potassium monitoring [employer] Work Phone: Start: 12-21-2021 End: 12-21-2021 Telemedicine consultation with patient 12/21/2021 Telemedicine Neurology Barb Morton MD [address] [place] [address] [facility] Start: 12-15-2021 End: 12-15-2021 Patient encounter procedure 12/15/2021 Appointment Radiology Barb Morton MD [address] [place] [address] [facility] Nuclear Medicine Start: 11-20-2021 ADVANCE DIRECTIVE DISCUSSION ADVANCE DIRECTIVE DISCUSSION [facility] Start: 11-20-2021 [address] DEPRESSION ASSESSMENT [facility] Start: 11-01-2021 End: 11-01-2021 Patient encounter procedure 11/01/2021 Appointment Radiology Barb Morton MD [address] [facility] [address] [place] [address] [facility] CT Start: 06-03-2021 End: 06-03-2021 Patient encounter procedure 06/03/2021 [place] [address] [place] [phone] [facility] Start: 05-19-2021 End: 05-19-2021 Patient encounter procedure 05/19/2021 Appointment [place] [address] [place] [phone] [facility] Start: 05-05-2021 End: 07-04-2021 ECHO Pharmacological Stress Test ECHO Pharmacological Stress Test Echocardiography Routine Pre-op testing Abnormal EKG Shortness of breath Expected: 05/05/2021 (Approximate), Expires: 07/04/2021 [facility] Work Phone: Comment on above: Expected: 05/05/2021 (Approximate), Expi res: 07/04/2021 Start: 07-21-2020 Influenza vaccination INFLUENZA (#1) [facility] Start: 05-12-2019 Annual Wellness Visit (AWV) Annual Wellness Visit (AWV) [facility] Work Phone: Start: 2009 ADVANCE DIRECTIVE DISCUSSION ADVANCE DIRECTIVE DISCUSSION [facility] Start: 2009 Fall risk assessment Falls Risk Assessment [facility] Start: 2009 Pneumococcal 65+ years Vaccine (1 of 1 - PPSV23) Pneumococcal 65+ years Vaccine (1 of 1 - PPSV23) [facility] Work Phone: Start: 2009 PNEUMOCOCCAL: 65+ (1 - PCV) PNEUMOCOCCAL: 65+ (1 - PCV) [facility] Start: 2009 PNEUMOVAX AGE 65 AND OVER WITH 5YR LOOKBACK (#1) PNEUMOVAX AGE 65 AND OVER WITH 5YR LOOKBACK (#1) [facility] Start: 1994 Shingles Vaccine (1 of 2) Shingles Vaccine (1 of 2) [employer] Work Phone: Start: 1994 SHINGRIX VACCINE (1 of 2) SHINGRIX VACCINE (1 of 2) [facility] Start: 1994 Tuberculosis screening COLORECTAL CANCER SCREENING,SEE MODIFIER [facility] Start: 1989 DIABETES SCREEN DIABETES SCREEN [facility] Start: [address] L[address] [facility] Start: 1963 DTaP/Tdap/Td vaccine (1 - Tdap) DTaP/Tdap/Td vaccine (1 - Tdap) [facility] Work Phone: Start: 1963 Urine microalbumin profile DTAP,TDAP,TD (1 - Tdap) [facility] Start: 1962 Diabetes: Urine Albumin-Creatinine Ratio for [facility] Diabetes: Urine Albumin-Creatinine Ratio for [facility] Start: 1962 HEPATITIS C SCREENING HEPATITIS C SCREENING [facility] Start: 1962 Hepatitis C screening Hepatitis C Screening [facility] Start: 1956 COVID-19 Vaccine (1) COVID-19 Vaccine (1) [facility] Work Phone: Start: 1956 Depression screening using PHQ-9 (Patient Health Questionnaire 9) score [facility] Start: 1954 Diabetic foot examination Foot Exam [facility] Start: 1954 Lipid panel Lipid screen [facility] Work Phone: Start: 1954 Microalbumin measurement, urine, quantitative Urine Microalbumin [facility] Start: 1954 Ophthalmic examination and evaluation Ophthalmology Exam [facility] Start: 1947 History and physical examination, annual for health maintenance Wellness Visit [facility] Start: 1944 Hemoglobin A1c measurement A1C [facility] Start: 1944 Hepatitis C screening Hepatitis C screen [facility] Work Phone: Start: 1944 Medicare Annual Wellness (AWV) Medicare Annual Wellness (AWV) [facility] Albumin [Moles/volum e] in Serum or Plasma [facility] Albumin/Globulin ratio [facility] Bilirubin measuremen t, urine [facility] Blood glucose - POCT [facility] Work Phone: Comment on above: As Needed until discontinued starting Cobalamin (Vitamin B 12) [Mass/volume] in Serum or Plasma [facility] End: 05-19-2021 Creatinine [Mass/volume] in Serum or Plasma Creatinine, serum Lab STAT One Time for 1 Occurrences starting 05/19/2021 until 05/19/2021 [facility] Work Phone: Comment on above: One Time for 1 Occurrences starting 04/22 until 05/19/2021 End: 10-05-2022 CT of head without contrast CT Head Or Brain Without Contrast Imaging Routine Tremor 1 Occurrences starting 10/05/2021 until 10/05/2022 [facility] Comment on above: 1 Occurrences starting 10/05/2021 until 10/05/2022 EKG 12 Lead [facility] Work Phone: Electrophoresis: [id number] [facility] Electrophoresis: aamir ma globulin [facility] Folate [Moles/volume ] in Serum or Plasma [facility] Folic acid measureme nt, RBC [facility] Globulin measurement [facility] Hemoglobin [Presence ] in Urine [facility] IgA [Mass/volume] in Serum or Plasma [facility] IgG [Mass/volume] in Serum or Plasma [facility] IgM [Mass/volume] in Serum or Plasma [facility] End: 05-19-2021 Intermittent pulse oximetry Pulse Oximetry Spot Check Respiratory Care Routine One Time for 1 Occurrences starting 05/19/2021 until 05/19/2021 [facility] Work Phone: Comment on above: One Time for 1 Occurrences starting 04/22 until 05/19/2021 Early/lambda light c winsome ratio [facility] Lambda light chains. free [Mass/volume] in Serum or Plasma [facility] Measurement of keton es in urine using dipstick [facility] Microscopic urinalysis [facility] MR Brain WO and W contrast IV [facility] MR Brain WO contrast [facility] MR Cervical spine [facility] MR Lumbar spine [facility] End: 05-11-2021 Nasal Cannula Oxygen Nasal Cannula Oxygen Respiratory Care Routine As Needed until discontinued starting 05/11/2021 [employer] Work Phone: Comment on above: As Needed until discontinued starting End: 10-05-2022 NM Brain Datscan SPECT CT Single Area Single Day NM Brain Datscan SPECT CT Single Area Single Day Imaging Routine Tremor 1 Occurrences starting 10/05/2021 until 10/05/2022 [facility] Work Phone: Comment on above: 1 Occurrences starting 10/05/2021 until 10/05/2022 Oxygen therapy [Mini [facility] Data Set] Initiate Oxygen Therapy Protocol Respiratory Care Routine Daily until discontinued starting 05/19/2021 [employer] Work Phone: Comment on above: Daily until discontinued starting 2020 Patient Education [facility] Work Phone: Patient referral [facility] Work Phone: pH of Urine [facility] End: 05-19-2021 Potassium w/ Reflex to Magnesium Potassium w/ Reflex to Magnesium Lab Routine One Time for 1 Occurrences starting 05/19/2021 until 05/19/2021 [employer] Work Phone: Comment on above: One Time for 1 Occurrences starting 04/22 until 05/19/2021 End: 05-19-2021 , urine POCT , urine POCT Point of Care Testing Routine One Time for 1 Occurrences starting 05/19/2021 until 05/19/2021 [employer] Work Phone: Comment on above: One Time for 1 Occurrences starting 04/22 until 05/19/2021 Protein electrophore sis panel - Serum or Plasma [facility] End: 05-19-2021 Protime-INR Protime-INR Lab STAT One Time for 1 Occurrences starting 05/19/2021 until 05/19/2021 [employer] Work Phone: Comment on above: One Time for 1 Occurrences starting 04/22 until 05/19/2021 PT PLAN OF CARE CERTIFICATION PT PLAN OF CARE CERTIFICATION Procedures Routine Parkinson disease (HCC) Ordered: 03/29/2022 [facility] Work Phone: Comment on above: Ordered: 03/29/2022 Serum immunofixation [facility] Specific gravity of Urine [facility] SPEECH PLAN OF CARE CERTIFICATION SPEECH PLAN OF CARE CERTIFICATION Procedures Routine Parkinsonism, unspecified Parkinsonism type (HCC) Dysphagia, oropharyngeal phase Dysarthria Ordered: 03/29/2022 [facility] Work Phone: Comment on above: Ordered: 03/29/2022 Spirometry panel Incentive mariann metry Respiratory Care Routine Q1H PRN until discontinued starting 05/19/2021 [facility] Work Phone: Comment on above: Q1H PRN until discontinued starting 04/22 Troponin T.cardiac [Mass/volume] in Serum or Plasma by High sensitivity method [facility] Urine blood test [facility] Urine culture [facility] Urine dipstick for glucose [facility] Urine dipstick for leukocyte esterase [facility] Urine dipstick for nitrite [facility] Urine dipstick for protein [facility] Urine examination [facility] Urine immunofixation [facility] Urine kappa light ch ain measurement [facility] Urine microscopy: epithelial cells [facility] Urine Microscopy: wh ite cells [facility] Urobilinogen [Presen ce] in Urine [facility] Immunizations Immunization Date Immunization Notes Care Provider Fa heidi 12-05-2024 tetanus toxoid, redu aman diphtheria toxoid, and acellular pertussis vaccine, adsorbed Dr. Ja Cooley MD Work Phone: [facility] Payers Date Payer Category Payer Private Health Insurance [facility] [id number] 2025 Unknown [id number] 2024 Self-pay [id number] 2021 Unknown [place] FOR L MARIAH [id number] 2021-Present [phone] [address] [place] [address] [id number] [id number] .7.3.214645.315 2021 Unknown [id number] 2021 Unknown [id number]. 1.13.385.2 .7.3.442719.315 2017 [employer] ( and others) [id number] 1.2.840.867497.1.13.239.2 .7.3.086918.315 2009 Medicare [id number] 1.2.840.405208.1.13.385.2 .7.3.045289.315 2009 Medicare 1.2.840.321849. 1.13.385.2 .7.3.433643.315 2009 Medicare [id number] 1.2.840.694891.1.13.239.2 .7.3.094885.315 2002 Self-pay [id number] 1.2.840.086658.1.13.159.2 .7.3.237706.315 1944 Unknown [id number] 2.16.840.1.017531.3.579.2 .900 1944 Unknown [id number] 2.16.840.1.166369.3.579.2 .900 1944 Unknown [id number] 2.16.840.1.628745.3.579.2 .900 1944 Unknown [id number] 2.16.840.1.560025.3.579.2 .900 1944 Unknown [id number] 2.16.840.1.927725.3.579.2 .900 1944 Unknown [id number] 2.16.840.1.745332.3.579.2 .900 1944 Unknown [id number] 2.840.1.752437.3.579.2 .900 1944 Unknown [id number] 2.840.1.628302.3.579.2 .900 1944 Unknown [id number] 2.840.1.775397.3.579.2 .900 1944 Unknown [id number] 2.840.1.152248.3.579.2 .627 1944 Unknown [id number] 2.840.1.106633.3.579.2 .627 Unknown [id number] Unknown [id number] 2.16840.1.451169.3.579.2 .462 Unknown [id number] 2.840.1.338130.3.579.2 .462 Unknown [id number] 2.840.1.361747.3.579.2 .462 Unknown [id number] 2.16840.1.160975.3.579.2 .462 Unknown [id number] 2.16840.1.881015.3.579.2 .462 Unknown [id number] 2.16.840.1.962991.3.579.2 .462 Unknown [id number] 2.16840.1.587200.3.579.2 .462 Unknown [id number] 2.16.840.1.366699.3.579.2 .462 Unknown [id number] 2.16.840.1.226430.3.579.2 .462 Unknown [id number] 2.16.840.1.549010.3.579.2 .462 Unknown [id number] 2.16.840.1.030238.3.579.2 .462 Unknown [id number] 2.16.840.1.864832.3.579.2 .462 Unknown [id number] 2.16.840.1.585304.3.579.2 .462 Unknown [id number] 2.840.1.271446.3.579.2 .462 Unknown [id number] 2.840.1.504380.3.579.2 .462 Unknown [id number] 2.840.1.428250.3.579.2 .462 Unknown [id number] 2.840.1.109215.3.579.2 .462 Unknown [id number] 2.840.1.317117.3.579.2 .462 Unknown [id number] 2.16.840.1.408748.3.579.2 .462 Unknown [id number] 2.840.1.423826.3.579.2 .462 Unknown [id number] 2.840.1.062905.3.579.2 .462 Unknown [id number] 2.16840.1.000252.3.579.2 .462 Unknown [id number] 2.16840.1.849688.3.579.2 .462 Unknown [id number] 2.16.840.1.745117.3.579.2 .462 Unknown [id number] 2.16.840.1.186759.3.579.2 .462 Unknown [id number] 2.840.1.261227.3.579.2 .462 Unknown [id number] 2.16.840.1.093192.3.579.2 .462 Unknown [id number] 2.16.840.1.956032.3.579.2 .462 Unknown [id number] 2.16.840.1.822720.3.579.2 .462 Unknown [id number] 2.16.840.1.252966.3.579.2 .462 Unknown [id number] 2.16.840.1.855740.3.579.2 .462 Unknown [id number] 2.16.840.1.546087.3.579.2 .462 Unknown [id number] 2.16.840.1.935783.3.579.2 .462 Unknown [id number] 2.16.840.1.399212.3.579.2 .462 Unknown [id number] 2.16.840.1.790569.3.579.2 .462 Unknown [id number] 2.16.840.1.664513.3.579.2 .462 Unknown [id number] 2.16.840.1.785412.3.579.2 .462 Unknown [id number] 2.16.840.1.838085.3.579.2 .462 Unknown [id number] 2.16.840.1.360232.3.579.2 .462 Unknown [id number] 2.16840.1.976988.3.579.2 .462 Unknown [id number] 2.16840.1.701810.3.579.2 .462 Social History Date Type Detail Facility Tobacco smoking stat [facility] Unknown if ever smoked [facility] Start: 1945 Sex Assigned At Not on file [facility] Start: 05-05-2021 End: 08-22-2025 Tobacco smoking status NVIS Former smoker [employer] Work Phone: Start: 11-20-1948 End: 11-20-1998 History of tobacco use Current smoker [facility] Start: 11-20-1948 End: 11-20-1998 History of tobacco use Cigarette Smoker [facility] Start: 05-05-2021 End: 11-08-2022 Cigarettes smoked current (pack per day) - Reported [facility] Work Phone: Start: 05-05-2021 End: 08-04-2022 Tobacco use and exposure Never used [facility] Start: 05-05-2021 End: 11-08-2022 Alcohol intake Current non-drinker of alcohol (finding) [facility] Work Phone: Start: 11-15-2021 End: 09-02-2022 Exposure to SARS-CoV-2 (event) Not sure [facility] Start: 01-28-2022 End: 08-07-2023 Tobacco smoking status NVIS Tobacco smoking consumption unknown [facility] Start: 10-05-2021 End: 12-12-2022 Alcohol intake Lifetime non-drinker (finding) [facility] Start: 1945 Sex Assigned At Male [facility] Start: 08-25-2021 History SDOH Alcohol Frequency [address] [facility] Start: 07-25-2022 End: 08-04-2022 Exposure to SARS-CoV-2 (event) Yes [facility] Start: 06-20-2022 End: 02-03-2025 Sex Male (finding) [facility] Start: 11-08-2022 End: 04-13-2025 Alcohol Use Disorder Identification Test - Consumption [AUDIT-C] [facility] How often to you hav e a drink containing alcohol? Never [facility] How many standard dr inks containing alcohol do you have on a typical day? Patient does not drink [facility] Medical Equipment Procedure Code Equipment Code Equipment Origin al Text Equipment Identifier Dates [id number] Start: 01-15-2018 SURE COMFORT PEN NEEDLES 31G X 8 MM MISC [id number] Start: 12-28-2017 blood sugar diagnostic (FreeStyle Lite Strips) strips [id number] Start: 01-15-2018 pen needle, diab etic 31 gauge x 5/16 Ndle [id number] Start: 12-28-2017 Goals Date Patient Goal Desired Activity /State Functional Status Date Assessment Result Facility 06-09-2025 Functional status Ambulates [facility] Work Phone: 04-13-2025 Total score [AUDIT-C] 0 04/13/20 8:48 PM EDT Cielo Valverde RN [facility] Mental Status Date Assessment Result Facility 06-12-2025 Cognitive function Voice/Name [facility] Work Phone: 06-09-2025 Cognitive function Delayed [facility] Work Phone: 05-11-2025 Cognitive function Awake;Alert;A ppropriate;Follow s Commands [facility] Work Phone: 10-12-2024 Cognitive function Awake;Alert;A ppropriate;Follow s Commands [facility] Work Phone: 01-28-2022 Cognitive function Level Of Cons ciousness Awake;Alert;Appropriate;Follow s Commands [facility] Work Phone: Clinical Notes 05-05-2021 to 08-26-2025 Note Date & Type Note Facility 08-26-2025 Note HNO ID: [id number] Author: MAYE SANTACRUZ PA-C Service: Neurosurgery Author Type: Physician Intake Specialist Type: Progress Notes Filed: 08/27/2025 12:58 Note Text: Documentation Query Please clarify the clinically significant diagnosis associated with the clinical indicators for this patient: Provider Response: Hyponatremia Please clarify the Present on Admission status for the diagnosis Per [facility] lab, normal lab values for sodium are 136-144 so a level of 133 on first BMP would be hyponatremia. So Present on Admission This document will become part of the patient's medical record. [facility] 08-26-2025 Note HNO ID: [id number] Author: MAYE SANTACRUZ PA-C Service: Neurosurgery Author Type: Physician Intake Specialist Type: Progress Notes Filed: 08/27/2025 13:00 Note Text: Documentation Query Please clarify the Diagnosis with the above clinical indicators Other Possible traumatic encephalopathy vs night time delirium in patient aged 80 Please clarify the Present on Admission status for the diagnosis Clinically unable to determine if patient was having night time delirium prior to admission This document will become part of the patient's medical record. [facility] 08-26-2025 Note HNO ID: [id number] Author: MAYE SANTACRUZ PA-C Service: Neurosurgery Author Type: Physician Intake Specialist Type: Progress Notes Filed: 08/27/2025 12:58 Note Text: Documentation Query Please clarify diagnosis associated with the clinical indicators Other Midline shift This document will become part of the patient's medical record. [facility] 08-26-2025 Note HNO ID: [id number] Author: KRISSY CONDE RN Service: Care Management Author Type: Registered Nurse Type: Care Mgt Progress Note Filed: 08/26/2025 13:30 Note Text: CARE MANAGEMENT DISCHARGE NOTE SERVICE DATE: August 26, 2025 SERVICE TIME: 1:20 PM Admission Date: 08/22/2025 LOS: 4 days Discharge Arrangement Discharge Arrangement: Jail Facility Was an expedited discharge program used?: No Provider Name: [facility] Caregiver Assessment Caregiver is ready, willing and able to meet the patient's needs as recommended by the inter-professional team: Yes Name of Caregiver: 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 Destination: [facility] Financial Care Management Responsibility: None Handoff Communication: Handoff to: Other Caregiver Other Caregiver Name/Phone: [facility]/ Bedside RN Spoke with patient at the bedside and patient's spouse Brennen via phone ([phone]). Discharge today. Discharge orders complete. Discussed placement options. Patient's spouse requests for patient to be placed at [facility] due to location and positive past experience. Facility notified and is able to accept patient. Medicare. No insurance authorization needed. Transportation set for 1400. [facility] and bedside RN notified. SIGNATURE: Krissy Conde RN PATIENT NAME: Luis Armando Griffith DATE: August 26, 2025 TIME: 1:[address] 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 08-26-2025 Note HNO ID: [id number] Author: VERONIKA VILLALPANDO MD Service: Care Management Author Type: Resident Type: Care Mgt Progress Note Filed: 08/26/2025 12:14 Note Text: CARE MANAGEMENT PROGRESS NOTE SERVICE DATE: 08/26/2025 SERVICE TIME: 11:17 AM LOS: 4 days Physician Certification of Less Than 30 Days Skilled Needs Earliest Possible Discharge Date: 08/26/25 To the best of my knowledge, all information provided about the individual is a true and an accurate reflection of Luis Armando Griffith's needs. I certify that following the inpatient level of care, a post-acute nursing facility stay is required for less than 30 days related to the condition(s) for which the patient was treated during the inpatient level of care: Principal Problem: Subdural hematoma (HCC) Active Problems: Parkinsonism (HCC) Fall Obesity, Class I, BMI 30-34.9 MELISSA (obstructive sleep apnea) At risk for delirium Memory loss DNR (do not resuscitate) discussion Frailty syndrome in geriatric patient Goals of care, counseling/discussion Full code status Resolved Problems: * No resolved hospital problems. * The information above is correct Attending Physician: Veronika Villalpando SIGNATURE: Krissy Conde RN PATIENT NAME: Luis Armando Griffith DATE: August 26, 2025 TIME: 11:[address] [facility] 08-26-2025 Note HNO ID: [id number] Author: LUCIA BRONSON LSW Service: Care Management Author Type: Taxonomist Type: Care Mgt Progress Note Filed: 08/26/2025 08:39 Note Text: CARE MANAGEMENT PROGRESS NOTE SERVICE DATE: 08/26/2025 SERVICE TIME: 8:38 AM LOS: 4 days Trauma Assessment- Reviewed chart. Pt's tox screen was not done at this time. There are no indications for concern for substance abuse. Trauma assessment not appropriate at this time. SIGNATURE: RIVKA Aguirre PATIENT NAME: Luis Armando Griffith DATE: August 26, 2025 TIME: 8:[address] [facility] 08-25-2025 Note HNO ID: [id number] Author: MARILEE JAMESON APRN.CNP Service: General Surgery Author Type: Nurse Practitioner Type: Progress Notes Filed: 08/25/2025 12:51 Note Text: Trauma Surgery Progress Note SERVICE DATE: 08/25/2025 Trauma Service Pager: For questions or concerns Mon-Fri 6a-5p please page [phone]. After 5pm and on Weekends and Holidays, please page [phone] if in ICU or [phone] if on RNF. SUBJECTIVE: No acute overnight events. Patient is drowsy and slow to respond, but arousable to voice. He is alert and oriented x 3, FC, EVANS. No new focal deficits. He denies headache, dizziness, lightheadedness, changes in vision, numbness/tingling. Awaiting AR placement. OBJECTIVE: Vitals: Temp (24hrs), Av.6 ?C (97.9 ?F), Min:36.2 ?C (97.2 ?F), Max:36.8 ?C (98.3 ?F) BP 140/78 Pulse 85 Temp 36.8 ?C (98.3 ?F) (Oral) Resp 16 Ht 177.8 cm (5' 10) Wt 115.2 kg (253 lb 15.5 oz) SpO2 95% BMI 36.44 kg/m? O2 Therapy: Room Air IANDO: Date 08/24/25699 - 08/25/2565808/25/25699 - 08/26/25658 Shift 8801-8239 9838-4060 5708-0030 24 Hour Total 1434-2583 6876-3105 0580-1981 24 Hour Total INTAKE PO 120 120 320 320 PO 120 120 320 320 Shift Total 120 120 320 320 OUTPUT Urine Urine Not Saved. 2 x 3 x 2 x 7 x 1 x 1 x Shift Total Weight (kg) 115.2 115.2 115.2 115.2 115.2 115.2 115.2 115.2 MEDICATIONS: Current Facility-Administered Medications Medication Dose Route Frequency pantoprazole DR 40 mg tab(s) (PROTONIX) 40 mg ORAL DAILY (6 AM) sertraline 100 mg tab(s) (ZOLOFT) 100 mg ORAL DAILY budesonide 0.5 mg/2 mL 1 mg (PULMICORT) 1 mg INHALATION BID And ipratropium-albuterol 3 mL nebulizer solution (DUONEB) 3 mL INHALATION QID senna-docusate 8.6-50 mg 1 tablet (SENNA-S) 1 tablet ORAL BID bisacodyl 10 mg suppository (DULCOLAX) 10 mg RECTAL DAILY PRN acetaminophen 1,000 mg tab(s) (TYLENOL) 1,000 mg ORAL TID rOPINIRole 1 mg tab(s) (REQUIP) 1 mg ORAL TID buPROPion XL 150 mg tab(s) (WELLBUTRIN XL) 150 mg ORAL DAILY insulin lispro injection (rapid acting) (ADMElog) SUBCUTANEOUS w MEALS AND HS NaCl 0.9% iv flush bag 20 mL INTRAVENOUS PRN tamsulosin 0.4 mg cap(s) (FLOMAX) 0.4 mg ORAL BID pravastatin 80 mg tab(s) (PRAVACHOL) 80 mg ORAL DAILY dextrose 15 gram/32 mL 15 g (TRUEPLUS) 15 g ORAL PRN Or glucagon 1 mg injection 1 mg INTRAMUSCULAR PRN Or dextrose 10% iv bolus 12.5 g INTRAVENOUS PRN carbidopa-levodopa 25-100 mg 2 tablet (SINEMET 25-100) 2 tablet ORAL 3 times per day oxyCODONE IR 2.5-5 mg tab(s) (ROXICODONE) 2.5-5 mg ORAL q 6 H PRN levETIRAcetam 500 mg tab(s) (KEPPRA) 500 mg ORAL/FEEDING TUBE BID ondansetron 4 mg tab(s) (ZOFRAN) 4 mg ORAL q 6 H PRN Or ondansetron (PF) 4 mg injection (ZOFRAN) 4 mg INTRAVENOUS q 6 H PRN polyethylene glycol 3350 17 g packet 17 g ORAL DAILY Labs: Recent Labs 08/25/25 0459 08/24/25 0551 08/23/25 0415 NA 140 133* 137 K 4.6 4.2 3.7 CHLOR 103 98 101 CO2 26 25 25 BUN 14 17 22 CREAT 0.87 0.80 0.79 GLUC 153* 143* 78 ANION 11 10 11 CA 9.1 8.7 8.5 MG -- -- 1.6* P -- -- 3.4 WBC 7.72 -- 7.97 HB 15.8 -- 13.3 HCT 46.3 -- 40.5 PLT 277 -- 226 PHYSICAL EXAM: Genl: Appears age appropriate. No acute distress. Resting comfortably. Head/Face: Normocephalic. Facial abrasions. Eyes: EOMI. PERRLA. Sclera not icteric, not injected Neck: No mid-line masses. C-spine non-tender. Back: No midline tenderness, step-offs or deformities. Resp: Lungs CTAB. No wheezes, rales or rhonchi. Respiratory status stable on RA @ 95%. CVS: RRR as above. 2+ RA, DP, PT pulses bilaterally. GI: Abdomen is soft, non-tender, non-distended. No guarding or peritoneal signs. MSK: No gross deformities. No clubbing, cyanosis or edema. Normal AROM x 4. Skin: Warm and dry. Not jaundiced. Neuro: AANDOx3. Strength and sensation grossly intact in all extremities. EVANS. GCS15. Psych: Normal mood. Normal affect. Appropriate insight into current situation. ASSESSMENT AND PLAN: Assessment Active Hospital Problems Diagnosis Date Noted Subdural hematoma (HCC) 08/22/2025 At risk for delirium 08/25/2025 Memory loss 08/25/2025 DNR (do not resuscitate) discussion 08/25/2025 Frailty syndrome in geriatric patient 08/25/2025 Goals of care, counseling/discussion 08/25/2025 Full code status 08/25/2025 Obesity, Class I, BMI 30-34.9 08/23/2025 MELISSA (obstructive sleep apnea) 08/23/2025 Fall 08/22/2025 Parkinsonism (HCC) 03/18/2022 80-year old male s/p mechanical fall x 2 on 08/22/25 (Trauma transfer from [place]) Imaging performed: CT face ([place] ED, 08/22) CT HCAP, CXR, repeat CT brain (08/22) CT brain (08/23) Traumatic Injuries: Mixed density subdural hematoma along the left frontal parietal region measuring up to 1.1 cm in thickness. This likely represents a mixture of acute and subacute/chronic hematoma. There is mild mass effect on adjacent sulci and approximately 3-4 mm of midline shift from left to right. Operations/Pr (more content not included)... [facility] 08-25-2025 Note HNO ID: [id number] Author: KRISSY CONDE RN Service: Care Management Author Type: Registered Nurse Type: Care Mgt Initial Assessment Filed: 08/25/2025 15:30 Note Text: CARE MANAGEMENT: ASSESSMENT AND DISCHARGE PLAN SERVICE DATE: August 25, 2025 SERVICE TIME: 11:11 AM PCP: Ja Cooley MD (Confirmed with patient) Primary Contact: Extended Emergency Contact Information Primary Emergency Contact: BRENNEN GRIFFITH Address: [address] [place] [address] Mobile Relation: Spouse Secondary Emergency Contact: Sabrina Valenzuela Mobile Relation: Daughter Admission Status: Inpatient Insurance Provider: MEDICARE A AND B Discharge Planning requested by: Per Department Practice Potential Transition Plans Rehab Facility Advance Directives Current Advance Directive: Health Care Power of Material Hauler, Living Will In Chart: No Current Living Arrangements and Support Lives with: Other person(s) Type of Residence: Assisted Living Facility Does the patient have to climb stairs at home?: No Care Facility Name: [facility] Support: Family members, Home care staff, Spouse/significant other How do you manage to accomplish the following: Needs Assistance: Ambulation, Bathe/Shower, Dress, Meals/Meal Prep, Going to the bathroom, Medication Management, Transportation to appointments/community Current Services/Equipment Current Post-Acute Service(s): DME Current DME Type: Wheelchair-manual Discharge Planning Patient Goal(s): General wellness, Increase strength [place] of Choice Explained: [place] of Choice Given: Yes Level of Care Discussed: Inpatient Rehab Facility Are you interested in bedside delivery of your medications? Yes Discharge Planning Participant(s): Patient, Spouse/significant other Patient/Family Comments: Caregiver Assessment: Caregiver is ready, willing and able to meet the patient's needs as recommended by the inter-professional team: Yes Transport at Discharge: Transportation Arrangements: Ambulance Needs Prior to Discharge: Needs Prior to Discharge: Accepting Facility, Bed Availability, Discharge Transportation Post-Acute Discharge Plan: Chart reviewed. S/p fall. L SDH. PT/OT recommend acute rehab. Spoke with patient at the bedside and patient's spouse Brennen via phone ([phone]). Explained care management role. Patient resides in assisted living at [facility]. History of Parkinson's disease. Patient has experienced increased weakness over the past couple weeks. Patient now primarily uses a wheelchair for ambulation. Requires some assistance with ADLs and IADLs. Retired. No longer drives. Discussed therapy recommendations. Patient in agreement and requests referral to [facility] due to location. Facility notified. Awaiting acceptance. ADDENDUM 08/25/25 1528: Notified that [facility] is unable to accept patient. Patient updated. Per patient's request, call placed to patient's spouse Brennen ([phone]) to discuss other placement options. Voicemail left. Awaiting call back. Will continue to follow clinical course for further transitional/discharge planning needs. SIGNATURE: Krissy Conde RN PATIENT NAME: Luis Armando Griffith DATE: August 25, 2025 TIME: 11:[address] [facility] 08-24-2025 Note HNO ID: [id number] Author: TRESA COOK MD Service: General Surgery Author Type: Physician Type: Progress Notes Filed: 08/24/2025 10:14 Note Text: Trauma Surgery Progress Note SERVICE DATE: 08/24/2025 Trauma Service Pager: For questions or concerns Mon-Fri 6a-5p please page [phone]. After 5pm and on Weekends and Holidays, please page [phone] if in ICU or [phone] if on RNF. SUBJECTIVE: NAEON. Neuromotor intact and unchanged from prior exam. Denies SAINI/N/V. No paresthesias or weakness. OBJECTIVE: Vitals: Temp (24hrs), Av.6 ?C (97.9 ?F), Min:36.4 ?C (97.6 ?F), Max:36.7 ?C (98.1 ?F) BP 138/74 Pulse 90 Temp 36.7 ?C (98.1 ?F) (Axillary) Resp 18 Ht 177.8 cm (5' 10) Wt 115.2 kg (253 lb 15.5 oz) SpO2 94% BMI 36.44 kg/m? O2 Therapy: Room Air IANDO: Date 08/23/25699 - 08/24/2565808/24/25699 - 08/25/25 0659 Shift 7992-8221 7276-9367 3616-8059 24 Hour Total 3561-9808 8230-3850 7536-4159 24 Hour Total INTAKE IV 300 300 Volume (mL) (sodium phosphate 45 mmol in D5W 250 mL) 250 250 Volume (mL) (magnesium sulfate iv piggyback in sterile water 2 g 50 mL) 50 50 Shift Total 300 300 OUTPUT Urine 875 875 Void (ml) 875 875 Urine Not Saved. 1 x 1 x Shift Total 875 875 Weight (kg) 115.2 115.2 115.2 115.2 115.2 115.2 115.2 115.2 MEDICATIONS: Current Facility-Administered Medications Medication Dose Route Frequency insulin lispro injection (rapid acting) (ADMElog) SUBCUTANEOUS w MEALS AND HS NaCl 0.9% iv flush bag 20 mL INTRAVENOUS PRN tamsulosin 0.4 mg cap(s) (FLOMAX) 0.4 mg ORAL BID pravastatin 80 mg tab(s) (PRAVACHOL) 80 mg ORAL DAILY dextrose 15 gram/32 mL 15 g (TRUEPLUS) 15 g ORAL PRN Or glucagon 1 mg injection 1 mg INTRAMUSCULAR PRN Or dextrose 10% iv bolus 12.5 g INTRAVENOUS PRN carbidopa-levodopa 25-100 mg 2 tablet (SINEMET 25-100) 2 tablet ORAL 3 times per day acetaminophen 1,000 mg tab(s) (TYLENOL) 1,000 mg ORAL q 6 H oxyCODONE IR 2.5-5 mg tab(s) (ROXICODONE) 2.5-5 mg ORAL q 6 H PRN HYDROmorphone 0.2 mg injection (DILAUDID) 0.2 mg INTRAVENOUS q 4 H PRN levETIRAcetam 500 mg tab(s) (KEPPRA) 500 mg ORAL/FEEDING TUBE BID ondansetron 4 mg tab(s) (ZOFRAN) 4 mg ORAL q 6 H PRN Or ondansetron (PF) 4 mg injection (ZOFRAN) 4 mg INTRAVENOUS q 6 H PRN polyethylene glycol 3350 17 g packet 17 g ORAL DAILY Labs: Recent Labs 08/24/25 0551 08/23/25 0415 08/22/25 1143 NA 133* 137 135* K 4.2 3.7 3.8 CHLOR 98 101 99 CO2 25 25 BUN 17 22 21 CREAT 0.80 0.79 0.85 GLUC 143* 78 152* ANION 10 11 11 CA 8.7 8.5 8.9 MG -- 1.6* -- P -- 3.4 -- ALB -- -- 3.9 AST -- -- 10* ALT -- -- <5* ALKPHOS -- -- 88 TBILI -- -- 0.8 WBC -- 7.97 8.62 HB -- 13.3 13.7 HCT -- 40.5 41.8 PLT -- 226 249 INR -- -- 1.1 PHYSICAL EXAM: GENERAL: Alert. No distress. Resting comfortably. NEURO: AANDOx3. No focal neurologic deficits. Sensation grossly intact. HEENT: Normocephalic. Atraumatic. EOMI. Nasal abrasion. LUNGS: Unlabored breathing on 4 L NC. Equal excursion bilaterally. CARDIAC: Regular rate. Good perfusion throughout. ABDOMEN: Soft, non-tender, non-distended. No rebound or guarding. EXTREMITIES: EVANS. No deformities. SKIN: No obvious jaundice or pallor. ASSESSMENT AND PLAN: Assessment Active Hospital Problems Diagnosis Date Noted Subdural hematoma (HCC) 08/22/2025 Obesity, Class I, BMI 30-34.9 08/23/2025 MELISSA (obstructive sleep apnea) 08/23/2025 Fall 08/22/2025 Parkinsonism (HCC) 03/18/2022 Assessment Patient is a 80 year old male with a PMH of paroxysmal A-fib on aspirin (no reportable additional anticoagulants), Parkinson's disease, COPD, MELISSA, spinal fusion L3-L4 who was consulted to trauma after mechanical GLF x 2 on 08/21 PM Imaging performed: - [facility]FHN (at outside ED), [facility] (at [facility]) Traumatic Injuries: L SDH w 3-4 mm of midline shift L to R Hospital Course: 08/22: ICU transfer for worsening headache Care Plan: L SDH w 3-4 mm of midline shift L to R - NSGY following - repeated CT brain (stable) -q4 NC - PT/OT -- PT recs AR, pending OT evaluation -pending SUPERVISOR CRACK OFF evaluation - pain and nausea prn - progressive mobility - strict Is/Os - hold lovenox until 08/25, SCDs -hold home ASA until after outpatient follow up with NSGY - daily labs PPX: - DVT: hold LVX - Ulcer: NA Consulted Services: - Trauma, neurosurgery, PT/OT/SUPERVISOR CRACK OFF Dispo Planning: - PT - acute rehab, OT recs pending, SUPERVISOR CRACK OFF recs pending. Case management following. Incidentals: - left lobe liver cyst or other benign lesion - Exophytic cyst mid left kidney 7 cm INPATIENT ATTENDING: * Surgery not found *, Urgent High-Risk Geriatric Patient Vulnerabilities: Impaired Cognition, Impaired Functional Status, and Impaired Mobility Diet: No diet orders on file Code Status: Not on file Recommendations: Cognition: Impaired Cognition (Consult Geriatrics) Geriatric Consult (Age over 85 or impaired cognition):Consult to Geriatric (more content not included)... [facility] 08-23-2025 Note HNO ID: [id number] Author: TRESA COOK MD Service: General Surgery Author Type: Physician Type: Progress Notes Filed: 08/23/2025 09:35 Note Text: Trauma Surgery Progress Note SERVICE DATE: 08/23/2025 Trauma Service Pager: For questions or concerns Mon-Fri 6a-5p please page [phone]. After 5pm and on Weekends and Holidays, please page [phone] if in ICU or [phone] if on RNF. SUBJECTIVE: No acute events overnight per patient chart. Denies fevers, chills. No new shortness of breath, chest pain, or numbness or tingling. VSS, AF, 97% on 4 L NC Urine: 400 mL Hemoglobin: 13.3 OBJECTIVE: Vitals: Temp (24hrs), Av.7 ?C (98 ?F), Min:36.4 ?C (97.5 ?F), Max:36.8 ?C (98.3 ?F) BP 142/78 Pulse 80 Temp 36.4 ?C (97.5 ?F) (Oral) Resp 22 Ht 177.8 cm (5' 10) Wt 108.8 kg (239 lb 13.8 oz) SpO2 93% BMI 34.42 kg/m? O2 Therapy: Nasal Cannula IANDO: Date 08/22/25 07 - 08/23/2565808/23/25 07 - 08/24/25 0659 Shift 4275-5948 5376-9774 9881-1269 24 Hour Total 5500-4306 0204-1016 7379-4532 24 Hour Total INTAKE Shift Total OUTPUT Urine 175 225 400 Void (ml) 175 200 375 Amount Voided Before Bladder Scan 25 25 Shift Total 175 225 400 Weight (kg) 117.9 108.8 108.8 108.8 108.8 108.8 108.8 108.8 MEDICATIONS: Current Facility-Administered Medications Medication Dose Route Frequency NaCl 0.9% iv flush bag 20 mL INTRAVENOUS PRN tamsulosin 0.4 mg cap(s) (FLOMAX) 0.4 mg ORAL BID pravastatin 80 mg tab(s) (PRAVACHOL) 80 mg ORAL DAILY dextrose 15 gram/32 mL 15 g (TRUEPLUS) 15 g ORAL PRN Or glucagon 1 mg injection 1 mg INTRAMUSCULAR PRN Or dextrose 10% iv bolus 12.5 g INTRAVENOUS PRN insulin lispro injection (rapid acting) (ADMElog) SUBCUTANEOUS q 6 H carbidopa-levodopa 25-100 mg 2 tablet (SINEMET 25-100) 2 tablet ORAL 3 times per day NaCl 0.9% iv infusion 100 mL/hr INTRAVENOUS CONTINUOUS acetaminophen 1,000 mg tab(s) (TYLENOL) 1,000 mg ORAL q 6 H oxyCODONE IR 2.5-5 mg tab(s) (ROXICODONE) 2.5-5 mg ORAL q 6 H PRN HYDROmorphone 0.2 mg injection (DILAUDID) 0.2 mg INTRAVENOUS q 4 H PRN levETIRAcetam 500 mg tab(s) (KEPPRA) 500 mg ORAL/FEEDING TUBE BID iv contrast (radiology procedure) INTRAVENOUS DIRECTED PRN iv contrast (radiology procedure) INTRAVENOUS DIRECTED PRN ondansetron 4 mg tab(s) (ZOFRAN) 4 mg ORAL q 6 H PRN Or ondansetron (PF) 4 mg injection (ZOFRAN) 4 mg INTRAVENOUS q 6 H PRN polyethylene glycol 3350 17 g packet 17 g ORAL DAILY potassium chloride 20-40 mEq oral powder (KLOR-CON) 20-40 mEq ORAL/FEEDING TUBE PRN Or potassium chloride iv piggyback 20 mEq/100 mL 20 mEq INTRAVENOUS PRN sodium phosphate 30 mmol in D5W 250 mL 30 mmol INTRAVENOUS PRN(NO DISPENSE) Or sodium phosphate 45 mmol in D5W 250 mL 45 mmol INTRAVENOUS PRN(NO DISPENSE) magnesium sulfate iv piggyback in sterile water 2 g 50 mL 2 g INTRAVENOUS PRN calcium gluconate iv piggyback 2 g in NaCl (iso-osmotic) 100 mL 2 g INTRAVENOUS PRN(NO DISPENSE) Labs: Recent Labs 08/23/25 0415 08/22/25 1143 NA 137 135* K 3.7 3.8 CHLOR 101 99 CO2 25 25 BUN 22 21 CREAT 0.79 0.85 GLUC 78 152* ANION 11 11 CA 8.5 8.9 MG 1.6* -- P 3.4 -- ALB -- 3.9 AST -- 10* ALT -- <5* ALKPHOS -- 88 TBILI -- 0.8 WBC 7.97 8.62 HB 13.3 13.7 HCT 40.5 41.8 PLT 226 249 INR -- 1.1 PHYSICAL EXAM: GENERAL: Alert. No distress. Resting comfortably. NEURO: AANDOx3. No focal neurologic deficits. Sensation grossly intact. HEENT: Normocephalic. Atraumatic. EOMI. Nasal abrasion. LUNGS: Unlabored breathing on 4 L NC. Equal excursion bilaterally. CARDIAC: Regular rate. Good perfusion throughout. ABDOMEN: Soft, non-tender, non-distended. No rebound or guarding. EXTREMITIES: EVANS. No deformities. SKIN: No obvious jaundice or pallor. ASSESSMENT AND PLAN: Assessment Active Hospital Problems Diagnosis Date Noted Subdural hematoma (HCC) 08/22/2025 Fall 08/22/2025 Parkinsonism (HCC) 03/18/2022 Assessment Patient is a 80 year old male with a PMH of paroxysmal A-fib on aspirin (no reportable additional anticoagulants), Parkinson's disease, COPD, MELISSA, spinal fusion L3-L4 who was consulted to trauma after mechanical GLF x 2 on 08/21 PM Imaging performed: - CTFHN (at outside ED), [facility] (at [facility]) Traumatic Injuries: L SDH w 3-4 mm of midline shift L to R Hospital Course: 08/22: ICU transfer for worsening headache Care Plan: L SDH w 3-4 mm of midline shift L to R - NSGY following - repeated CT brain (stable), HOB 30 degrees, q1 neuro checks - PT/OT - pain and nausea prn - progressive mobility - strict Is/Os - hold lovenox, SCDs - daily labs PPX: - DVT: hold LVX - Ulcer: NA Consulted Services: - Trauma, neurosurgery Dispo Planning: - PT/OT recs pending. Case management following. Incidentals: - left lobe liver cyst or other benign lesion - Exophytic cyst mid left kidney 7 cm INPATIENT ATTENDING: * Surgery not found *, Urgent High-Risk Geriatric (more content not included)... [facility] 08-23-2025 Note HNO ID: [id number] Author: LIUDMILA GARCIA MD Service: General Surgery Author Type: Resident Type: Progress Notes Filed: 08/23/2025 20:28 Note Text: Attestation signed by Liudmila Garcia MD at 08/23/2025 8:28 PM SURGICAL CRITICAL CARE STAFF: Liudmila Garcia MD I saw and evaluated this patient on August 23, 2025 in conjunction with the multi-disciplinary ICU team. I have conducted an independent examination and verified the physical exam findings of the resident and or medical student as documented. Any corrections or additional notes were made as needed. I personally reviewed the laboratory results, and supervised subsequent laboratory order sets, and personally interpreted radiographic images. BRIEF ASSESSMENT AND PLAN FOR ICU ADMISSION/CARE: Repeat stable, neuro checks wnl. Ok for floor by NS This was an aggregate 30 minute CRITICAL CARE encounter requiring my full attention to the evaluation and management of this critically ill patient. This time does NOT include that spent performing or supervising any procedures or teaching. DAILY ICU CHECKLIST: The following items were reviewed and are addressed in the plan of care above: *Need for Restraints. *Need for Rasmussen Catheter. *Need for Central Access Devices. *Daily Sedation Holiday. *VTE Prophylaxis. *Plan of Care discussed with Patient/Family *Reviewed and or revised goals of care on rounds with patient and or patient sales representative church furniture. This included discussion relating to any of the following: code status, desire for life-sustaining treatments, palliative care, or any changes to medical proxy. Liudmila Garcia MD Departments of General Surgery Section of Trauma, Surgery Critical Care, and Acute Care Surgery Pager: [phone] August 23, 2025 INPATIENT SICU PROGRESS NOTE SERVICE DATE: 08/23/2025 SERVICE TIME: 6:55 AM Subjective No acute events overnight per chart. No fevers, chills. Denies any new shortness of breath, chest pain, or numbness or tingling. VSS, AF, 97% on 4 L NC Urine: 400 mL Hemoglobin: 13.3 Current Facility-Administered Medications Medication Dose Route Frequency NaCl 0.9% iv flush bag 20 mL INTRAVENOUS PRN tamsulosin 0.4 mg cap(s) (FLOMAX) 0.4 mg ORAL BID pravastatin 80 mg tab(s) (PRAVACHOL) 80 mg ORAL DAILY dextrose 15 gram/32 mL 15 g (TRUEPLUS) 15 g ORAL PRN Or glucagon 1 mg injection 1 mg INTRAMUSCULAR PRN Or dextrose 10% iv bolus 12.5 g INTRAVENOUS PRN insulin lispro injection (rapid acting) (ADMElog) SUBCUTANEOUS q 6 H carbidopa-levodopa 25-100 mg 2 tablet (SINEMET 25-100) 2 tablet ORAL 3 times per day NaCl 0.9% iv infusion 100 mL/hr INTRAVENOUS CONTINUOUS acetaminophen 1,000 mg tab(s) (TYLENOL) 1,000 mg ORAL q 6 H oxyCODONE IR 2.5-5 mg tab(s) (ROXICODONE) 2.5-5 mg ORAL q 6 H PRN HYDROmorphone 0.2 mg injection (DILAUDID) 0.2 mg INTRAVENOUS q 4 H PRN levETIRAcetam 500 mg tab(s) (KEPPRA) 500 mg ORAL/FEEDING TUBE BID iv contrast (radiology procedure) INTRAVENOUS DIRECTED PRN iv contrast (radiology procedure) INTRAVENOUS DIRECTED PRN ondansetron 4 mg tab(s) (ZOFRAN) 4 mg ORAL q 6 H PRN Or ondansetron (PF) 4 mg injection (ZOFRAN) 4 mg INTRAVENOUS q 6 H PRN polyethylene glycol 3350 17 g packet 17 g ORAL DAILY potassium chloride 20-40 mEq oral powder (KLOR-CON) 20-40 mEq ORAL/FEEDING TUBE PRN Or potassium chloride iv piggyback 20 mEq/100 mL 20 mEq INTRAVENOUS PRN sodium phosphate 30 mmol in D5W 250 mL 30 mmol INTRAVENOUS PRN(NO DISPENSE) Or sodium phosphate 45 mmol in D5W 250 mL 45 mmol INTRAVENOUS PRN(NO DISPENSE) magnesium sulfate iv piggyback in sterile water 2 g 50 mL 2 g INTRAVENOUS PRN calcium gluconate iv piggyback 2 g in NaCl (iso-osmotic) 100 mL 2 g INTRAVENOUS PRN(NO DISPENSE) Objective VITAL SIGNS BP 135/70 Pulse 79 Temp (Src) 97.5 (Oral) Resp 21 Ht 5' 10 (1.78m) Wt 239 lb 13.8 oz (108.8kg) SpO2 97% BMI 34.42 kg/(m2). O2 Therapy: Nasal Cannula, Liters (Numeric Only): 4 Temp (24hrs), Av.7 ?C (98 ?F), Min:36.4 ?C (97.5 ?F), Max:36.8 ?C (98.3 ?F) Date 08/22/25699 - 08/23/2565808/23/25699 - 08/24/25 0659 Shift 7198-3936 0456-1791 9027-7022 24 Hour Total 4882-1711 4773-8002 1035-3644 24 Hour Total INTAKE Shift Total OUTPUT Urine 175 200 375 Void (ml) 175 200 375 Shift Total 175 200 375 Weight (kg) 117.9 108.8 108.8 108.8 108.8 108.8 108.8 108.8 PHYSICAL EXAM: GENERAL: Alert. No distress. Resting comfortably. NEURO: AANDOx3. No focal neurologic deficits. Sensation grossly intact. HEENT: Normocephalic. Atraumatic. EOMI. Nasal abrasion. LUNGS: Unlabored breathing on 4 L NC. Equal excursion bilaterally. CARDIAC: Regular rate. Good perfusion throughout. ABDOMEN: Soft, non-tender, non-distended. No rebound or guarding. (more content not included)... [facility] 08-22-2025 Note HNO ID: [id number] Author: ROSALIE ROD APRN.YOUTH CAREER SPECIALIST Service: Neurosurgery Author Type: Nurse Practitioner Type: Plan of Care Filed: 08/22/2025 20:26 Note Text: Neurosurgery Plan of Care Note: Repeat CT scan reviewed. R convexity SDH appears more hyperdense and slightly increased in size. Trauma resident aware patient needs to be in ICU for closer neuro assessment. Transfer to ICU per trauma as primary service HOB 30 degrees Repeat CTH 0130 Q1hr neuro exams Rosalie Rod APRN YOUTH CAREER SPECIALIST Neurosurgery Pager: [phone] August 22, 2025 8:[address] [facility] 08-22-2025 Radiology Diagnostic study note [facility] 08-22-2025 Radiology Diagnostic study note [facility] 08-22-2025 Radiology Diagnostic study note [facility] 07-12-2025 Discharge summary [facility] 07-12-2025 Radiology Diagnostic study note [facility] Imaging Services [address] [place], [place] [address] Brain/Head without Contrast MR#: [id number] Acct: [id number] Name: LUIS ARMANDO GRIFFITH Rep #: [id number] : 1945 M 79 From: Pet er Peer DO PCP: Dr. Ja Cooley MD Status: RE G ER Study:Brain/Head without Contrast Date of Exa m: 07/12/25 Exam# [id number] Ordering Dr: Surya Dumont MD PROCEDURE: BRAIN/HEAD [...] injury. No skull fracture identified. Reading Location: [facility] CC: Dr. Surya Dumont MD; Dr. Ja Cooley MD ~ Bicycle Inspector: Signed [facility] 07-12-2025 Discharge summary Note Date/Time July 12, 2025 8:30pm [facility] Medical Records Department [address] [place] [address] Emergency Department Summary 07/12/25 MR#: [id number] Acct: [id number] Name: LUIS ARMANDO GRIFFITH Rep #:[id number] : 1945 79 From: Surya Dumont MD PCP: Dr. Ja Cooley MD Status:RE G ER Location: ED HPI History of Present Illness Chief Complaint: Head Injury Narrative Narrative: 79-year-old male presents from [place] via EMS with fall with injury to [...] injury to the back of his head. [facility] Medical History Hard of hearing [...] Clarity Clear Urine pH 6.0 Ur Specific Cochrane 1.020 Urine Protein 30 H Urine Glucose [...] injury. No skull fracture identified. Reading Location: [facility] Discharge Plan Triage Chief Complaint: Head [...] Return with new orworsening symptoms. Print Language: Libyan Disposition Disposition: Home, Self Care What to do if you have Problems For any increased pain, shortness of breath, bleeding, nausea or vomiting, chestpain, or any unexpected problems, contact your Primary Care Provider. Call [facility] ([phone]) or report to the closest Emergency Room. Call 911 if necessary. 07/12/252029 <Electronically signed by Surya Dumont MD> Cosigner Signature (if applicable): CC: Dr. Ja Cooley MD ~ Signed [facility] Work Phone: 1(818) 785-611208-18-2025 Radiology Diagnostic study note [facility] Imaging Services [address] [place] [address] Knee 4 or More Views MR#: [id number] Acct: [id number] Name: LUIS ARMANDO GRIFFITH Rep #: [id number] : 1945 M 79 From: Gwen Skinner MD PCP: Dr. Ja Cooley MD Status: RE G ER Study:Knee 4 or More Views Date of Exam: 07/07/25 Exam# [id number] Ordering Dr: Chetan Deras MD PROCEDURE: KNEE [...] knee arthroplasty. Post operative changes. Reading Location: [place] [address] CC: Dr. Yadiel Deras MD; Dr. Ja Cooley MD ~ Bicycle Inspector: Signed [facility]08-18-2025 Radiology Diagnostic study note [facility] Imaging Services [address] [place] [address] Spine Cervical without Contras MR#: [id number] Acct: [id number] Name: LUIS ARMANDO GRIFFITH Rep #: [id number] : 1945 M 79 From: Gwen Skinner MD PCP: Dr. Ja Cooley MD Status: RE G ER Study:Spine Cervical without Contras Date of Exam: 07/07/25 Exam# [id number] Ordering Dr: Chetan Deras MD PROCEDURE: SPINE [...] evidence of an acute abnormality. Reading Location: [place] [address] CC: Dr. Yadiel Deras MD; Dr. Ja Cooley MD ~ Bicycle Inspector: Signed [facility]08-18-2025 Radiology Diagnostic study note [facility] Imaging Services [address] [place], [place] [address] Brain/Head without Contrast MR#: [id number] Acct: [id number] Name: LUIS ARMANDO GRIFFITH Rep #: [id number] : 1945 M 79 From: Gwen Skinner MD PCP: Dr. Ja Cooley MD Status: RE G ER Study:Brain/Head without Contrast Date of Exa m: 07/07/25 Exam# [id number] Ordering Dr: Chetan Deras MD PROCEDURE: BRAIN/HEAD [...] other interval change is noted. Reading Location: [place] [address] CC: Dr. Yadiel Deras MD; Dr. Ja Cooley MD ~ Bicycle Inspector: Signed [facility]07-31-2025 Discharge summary [facility] Medical Records Department [address] [place] [address] Emergency Department Summary 06/19/25 MR#: [id number] Acct: [id number] Name: LUIS ARMANDO GRIFFITH Rep #:[id number] : 1945 79 From: Surya Dumont MD PCP: Dr. Ja Cooley MD Status:DARIEN ER Location: ED HPI HPI - Fall History of Present Illness Chief Complaint: Fall Narrative Narrative: 79-year-old male past medical history of Parkinson's and frequent falls presentswith his daughter after fall in the shower. He is a resident of [place]. He has had frequent falls, at least for the last month. He sustained multiple hematomas and ecchymosis to his face. Tonight, when he fell, he romina tained a laceration just above his right eyebrow. No loss of consciousness. Denies other injuries. Tetanus immunization current according to daughter. [facility] Medical History Hard of hearing [...] 2 inh inhalation Q6 H PRN shortness 07/20/25 Unknown History aerosol inhaler of breath or [...] emergency department but he declined andwill take wqoc-jpl-qdtrike medications at home. Disposition is discharged home in stable condition. History & Record Review Discussion w/independent historian: Patient and Family (Daughter, Sabrina) Radiography Diagnostic Testing: Clinical Impression(s) from Imaging Studies Brain CT 06/19/25 19:47 IMPRESSION: 1. No acute intracranial abnormality. 2. Moderate left frontal scalp hematoma/contusion. No calvarial fracture. 3. Sinus disease involving the right maxillary sinus and anterior ethmoids. Reading Location: [id number] Procedures Lacerations Right forehead just above eyebrow: [...] Days for suture removal Activity Restrictions/Additional Instructions: Bupu-ylt-ffrockw medications like Tylenol or ibuprofen as needed for pain. Havesutures removed in 5days. Look for signs of infection including fever, increased redness to area, drainage of pus from wound. Return with new or worsening symptoms. Print Language: Libyan Disposition Disposition: Home, Self Care What to do if you have Problems For any increased pain, shortness of breath, bleeding, nausea or vomiting, chestpain, or any unexpected problems, contact your Primary Care Provider. Call [facility] ([phone]) or report tothe closest Emergency Room. Call 911 if necessary. 06/19/252119 Cosigner Signature (if applicable): CC: Dr. Ja Cooley MD ~ Signed [facility]07-31-2025 Radiology Diagnostic study note [facility] Imaging Services [address] [place] [address] Brain/Head without Contrast MR#: [id number] Acct: [id number] Name: LUIS ARMANDO GRIFFITH Rep #: [id number] : 1945 M 79 From: Raz Joiner MD PCP: Dr. Ja Cooley MD Status: RE ER Study:Brain/Head without Contrast Date of Exa m: 06/19/25 Exam# [id number] Ordering Dr: Surya Dumont MD PROCEDURE: BRAIN/HEAD [...] maxillary sinus and anterior ethmoids. Reading Location: [id number] CC: Dr. Surya Dumont MD; Dr. Ja Cooley MD ~ Bicycle Inspector: Signed [facility]07-31-2025 Discharge summary Author Surya Dumont [facility] Note Date/Time June 19, 2025 9:20 pm [facility] Medical Records Department [address] [place] [address] Emergency Department Summary 06/19/25 MR#: [id number] Acct: [id number] Name: LUIS ARMANDO GRIFFITH Rep #:[id number] 11 : 1945 79 From: Surya Dumont MD PCP: Dr. Ja Cooley MD Status:RE G ER Location: ED HPI HPI - Fall History of Present Illness Chief Complaint: Fall Narrative Narrative: 79-year-old male past medical history of Parkinson's and frequent falls presentswith his daughter after fall in the shower. He is a resident of [place]. He has had frequent falls, at least for the last month. He sustained multiple hematomas and ecchymosis to his face. Tonight, when he fell, he sustained a laceration just above his right eyebrow. No loss of consciousness. Denies other injuries. Tetanus immunization current according to daughter. [facility] Medical History Hard of hearing [...] department but he declined and will take ffzr-mlg-glyehsa medications at home. Disposition is discharged home in stable condition. History & Record Review Discussion w/independent historian: Patient and Family (Daughter, Sabrina) Radiography Diagnostic Testing: Clinical Impression(s) from Imaging Studies Brain CT 06/19/25 19:47 IMPRESSION: 1. No acute intracranial abnormality. 2. Moderate left frontal scalp hematoma/contusion. No calvarial fracture. 3. Sinus disease involving the right maxillary sinus and anterior ethmoids. Reading Location: [id number] Procedures Lacerations Right forehead just above eyebrow: Length: 0.87 in Depth: Skin Shape: Linear Prep: Sterile Conditions and Shure-Clens Laceration repair: Irrigated (Moderately cleansed), Lidocaine and Local Number of Sutures/Winston: 5 Suture Information: Ethilon, Simple and 5-0 [...] Days for suture removal Activity Restrictions/Additional Instructions: Dies-bot-lmnvprz medications like Tylenol or ibuprofen as needed for pain. Havesutures removed in 5 days. Look for signs of infection including fever, increased redness to area, drainage of pus from wound. Return with new or worsening symptoms. Print Language: Libyan Disposition Disposition: Home, Self Care What to do if you have Problems For any increased pain, shortness of breath, bleeding, nausea or vomiting, chestpain, or any unexpected problems, contact your Primary Care Provider. Call [facility] ([phone]) or report to the closest Emergency Room. Call 911 if necessary. 06/19/252119 <Electronically signed by Surya Dumont MD> Cosigner Signature (if applicable): CC: Dr. Ja Cooley MD ~ Signed [facility] Work Phone: 1(773) 987-944107-24-2025 Discharge summary [facility] Medical Records Department [address] [place] [address] Emergency Department Summary 06/12/25 MR#: [id number] Acct: [id number] Name: LUIS ARMANDO GRIFFITH Rep #:[id number] [...] left. He is in assisted living at [place]. Daughter is at the bedside states he [...] insulin today which is normal for him. [facility] Medical History Hard of hearing [...] basilar skull fracture with no hemotympanum, rhinorrhea, Soriano sign or raccoon eyes. Moist mucosal membrane [...] understandable. Daughter states this ishis baseline speech [place] Coma Scale: document GCS findings Spontaneous Obeys [...] that he needs a higher level of care/mcc as he is only in assisted living. [...] % (Auto) 54.7 Lymph % (Auto) 32.8 Chenango % (Auto) 9.4 Eos % (Auto) 1.9 [...] Clarity Clear Urine pH 6.0 Ur Specific Cochrane 1.025 Urine Protein 15 H Urine Glucose [...] region with no underlying fracture. Reading Location[facility] Cervical Spine CT 06/12/25 10:43 IMPRESSION: There is loss of the lordosis. There is grade 1 spondylolisthesis at C7-T1, 0.3 cm. There is loss of disc height from C 3-7. There is moderate bilateral foraminal narrowing from C3-6 secondary to bony hypertrophy. There is no visible acute traumatic injury. Reading Location: [facility] Rhythm Strip Rhythm Strip: Sinus Rhythm Rate: [...] MD [Primary Care Provider] - Print Language: Libyan Disposition Disposition: Home, Self Care What to do if you have Problems For any increased pain, shortness of breath, bleeding, nausea or vomiting, chestpain, or any unexpected problems, contact your Primary Care Provider. Call Doctors Registry ([phone]) or report tothe closest Emergency Room. Call 911 if necessary. 06/12/25 1410 Cosigner Signature (if applicable): CC: Dr. Ja Cooley MD ~ Signed [facility]07-24-2025 Discharge summary Author [facility] Note Date/Time June 12, 2025 2:10 pm [facility] Medical Records Department [address] [place] [address] Emergency Department Summary 06/12/25 MR#: [id number] Acct: [id number] Name: LUIS ARMANDO GRIFFITH Rep #:[id number] [...] left. He is in assisted living at [place]. Daughter is at the bedside states he [...] insulin today which is normal for him. [facility] Medical History Hard of hearing [...] basilar skull fracture with no hemotympanum, rhinorrhea, Soriano sign or raccoon eyes. Moist mucosal membrane [...] that he needs a higher level of care/mcc as he is only in assisted living. They state thatat this time they think that he is fine over [facility] [...] % (Auto) 54.7 Lymph % (Auto) 32.8 Chenango % (Auto) 9.4 Eos % (Auto) 1.9 [...] Clarity Clear Urine pH 6.0 Ur Specific Cochrane 1.025 Urine Protein 15 H Urine Glucose [...] region with no underlying fracture. Reading Location: [facility] Cervical Spine CT 06/12/25 10:43 IMPRESSION: There is loss of the lordosis. There is grade 1 spondylolisthesis at C7-T1, 0.3 cm. There is loss of disc height from C 3-7. There is moderate bilateral foraminal narrowing from C3-6 secondary to bony hypertrophy. There is no visible acute traumatic injury. Reading Location: [facility] Rhythm Strip Rhythm Strip: Sinus Rhythm Rate: [...] MD [Primary Care Provider] - Print Language: Libyan Disposition Disposition: Home, Self Care What to do if you have Problems For any increased pain, shortness of breath, bleeding, nausea or vomiting, chestpain, or any unexpected problems, contact your Primary Care Provider. Call Doctors Registry ([phone]) or report to the closest Emergency Room. Call 911 if necessary. 06/12/25 1410 <Electronically signed by Maty Dial DO> Cosigner Signature (if applicable): CC: Dr. Ja Cooley MD ~ Signed [facility] Work Phone: 1(938) 859-612607-24-2025 Radiology Diagnostic study note [facility] Imaging Services [address] [place], [place] [address] Spine Cervical without Contras MR#: [id number] Acct: [id number] Name: LUIS ARMANDO GRIFFITH Rep #: [id number] : 1945 M 79 From: Tez Spencer MD PCP: Dr. Ja Cooley MD Status: [place] E ER Study:Spine Cervical without Contras Date of Exam: 06/12/25 Exam# [id number] Ordering Dr: Lawrence Dial DO PROCEDURE: SPINE [...] Dial DO; Dr. Ja Cooley MD ~ Bicycle Inspector: Signed [facility]07-24-2025 Radiology Diagnostic study note [facility] Imaging Services [address] [place] [address] Brain/Head without Contrast MR#: [id number] Acct: [id number] Name: LUIS ARMANDO GRIFFITH Rep #: [id number] : 1945 M 79 From: Tez Spencer MD PCP: Dr. Ja Cooley MD Status: [place] E ER Study:Brain/Head without Contrast Date of Exa m: 06/12/25 Exam# [id number] Ordering Dr: Lawrence Dial DO EXAM: NONCONTRAST [...] Dial DO; Dr. Ja Cooley MD ~ Bicycle Inspector: Signed [facility]07-21-2025 Discharge summary [facility] Medical Records Department [address] [place] [address] Instructions for Home/Discharge Instructions 06/09/25 1610 MR#: [id number] Acct: [id number] Name: LUIS ARMANDO GRIFFITH Rep #:[id number] [...] MD; Dr. Daphnie Narayanan MD ~ Signed [facility]07-21-2025 [facility] History and physical note [facility] Note Date/Time June 09, 2025 6:04 am [facility] Medical Records Department [address] [place] [address] H&P Exam - Hospitalist 06/08/252109 MR#: [id number] Acct: [id number] Name: LUIS ARMANDO GRIFFITH Rep #:[id number] : 1945 79 From: Geo Marin DO PCP: Dr. Ja Cooley MD Status:AD M [facility] Location: [place] [id number] [facility] - General General Date of Admission: 06/08/25 [...] on hydrocodone-acetaminophen prn QID who presents to [facility] ER complaining of syncope with [...] expected to be less than 2 midnights. [facility] Medical History Parkinson's disease Right bundle branch [...] % (Auto) 51.9, Lymph % (Auto) 36.0, Chen[place] % (Auto) 8.5, Eos % (Auto) 1.9, [...] Clarity Clear, Urine pH 6.0, Ur Specific Cochrane 1.020, Urine Protein 15 H, Urine Glucose [...] clinical evidence of acute sinusitis. Reading Location: [facility] Cervical Spine CT 06/08/25 18:16 IMPRESSION: No acute osseous abnormality of the cervical spine. Multilevel degenerative changes. Reading Location: [id number] Chest X-Ray 06/08/25 18:43 IMPRESSION: Low lung volumes, without definite evidence of an acute cardiopulmonary abnormality. Reading Location: [id number]-[id number] Assessment & Plan Assessment/Plan (1) Syncope and [...] of discharge. Give acetaminophen as needed for ooti-uk-yzlptnfd (level 1-5/10) pain or fever. 3. Dehydration [...] 85 minutes. Charges/Coding Visit Charges OBSV E&M: 53027 Observ/hosp same date L3 06/09/25 0604 <Electronically signed by Geo Garza DO> Cosigner Signature (if applicable): CC: Dr. Geo Garza DO; Dr. Ja Cooley MD~ Signed [facility] Work Phone: 1([phone]) 143-182907-21-2025 History and physical note [facility] Medical Records Department [address] [place] [address] H&P Exam - Hospitalist 06/08/252109 MR#: [id number] Acct: [id number] Name: LUIS ARMANDO GRIFFITH Rep #:[id number] : 1945 79 From: Geo Marin DO PCP: Dr. Ja Cooley MD Status:AD M SANDHYA Location: [place] [address] HPI - General General Date of Admission: [...] on hydrocodone-acetaminophen prn QID who presents to [facility] ER complaining of syncope with [...] expected to be less than 2 midnights. [facility] Medical History Parkinson's disease Right bundle branch [...] % (Auto) 51.9, Lymph % (Auto) 36.0, [place] % (Auto) 8.5, Eos % (Auto) 1.9, [...] Clarity Clear, Urine pH 6.0, Ur Specific Cochrane 1.020, Urine Protein 15 H, Urine Glucose [...] clinical evidence of acute sinusitis. Reading Location: [id number]-G Cervical Spine CT 06/08/25 18:16 IMPRESSION: No acute osseous abnormality of the cervical spine. Multilevel degenerative changes. Reading Location: [facility] Chest X-Ray 06/08/25 18:43 IMPRESSION: Low lung volumes, without definite evidence of an acute cardiopulmonary abnormality. Reading Location: SOV-TIGQDFELY-R Assessment & Plan Assessment/Plan (1) Syncope and [...] timeof discharge. Give acetaminophen as needed for azau-vl-tbrzdmpr (level 1-5/10) pain or fever. 3. Dehydration [...] 85 minutes. Charges/Coding Visit Charges OBSV E&M: 10140 Observ/hosp same date L3 06/09/25 0604 Cosigner Signature (if applicable): CC: Dr. Geo Garza DO; Dr. Ja Cooley MD~ Signed [facility]07-21-2025 Discharge summary Author [facility] Note Date/Time June 08, 2025 11:1 6pm [facility] Medical Records Department [address] [place] [address] Emergency Department Summary 06/08/25 MR#: [id number] Acct: [id number] Name: LUIS ARMANDO GRIFFITH Rep #:[id number] : 1945 79 From: Joe Soto DO PCP: Dr. Ja Cooley MD Status:CHIP AR[facility]UR Location: [place] [address] HPI History of Present Illness Chief Complaint: [...] his abdomen or legs. Patient not anticoagulated. [facility] Medical History Parkinson's disease Right [...] % (Auto) 51.9 Lymph % (Auto) 36.0 Chen[place] % (Auto) 8.5 Eos % (Auto) 1.9 [...] clinical evidence of acute sinusitis. Reading Location: VGB-QPRHEPJEB-Q Cervical Spine CT 06/08/25 18:16 IMPRESSION: No acute osseous abnormality of the cervical spine. Multilevel degenerative changes. Reading Location: [facility] Chest X-Ray 06/08/25 18:43 IMPRESSION: Low lung volumes, without definite evidence of an acute cardiopulmonary abnormality. Reading Location: [id number] 1 view chest x-ray obtained interpreted by [...] MD [Primary Care Provider] - Print Language: Libyan Disposition Disposition: Acute Care Hospital [facility] What to do if you have Problems For any increased pain, shortness of breath, bleeding, nausea or vomiting, chestpain, or any unexpected problems, contact your Primary Care Provider. Call Doctors Registry ([phone]) or report to the closest Emergency Room. Call 911 if necessary. 06/08/25 1414 <Electronically signed by Joe Soto DO> Cosigner Signature (if applicable): CC: Dr. Ja Cooley MD ~ Signed [facility] Work Phone: 1(543) 530-732807-20-2025 Evaluation note* Diagnosis Onset Date Resolution Status Admit Date Acute sinusitis resolved May 9:40pm Dehydration resolved [...] chronic June 26 1:05pm Parkinson's disease chronic Junus t 2024 1:05pm Polyneuropathy chronic June 1:05pm Sinus tachycardia acute June 27, 2025 1:22pm Essential (primary) hypertension chronic June 27, 2025 1:22pm HLD (hyperlipidemia) chronic Junu st 2024 1:22pm Paroxysmal atrial fibrillation chron ic June 27, 2025 1:22pm [facility] Work Phone: 1(678) 372-256307-20-2025 Discharge summary [facility] Medical Records Department [address] [place] [address] Emergency Department Summary 06/08/25 MR#: [id number] Acct: [id number] Name: LUIS ARMANDO GRIFFITH Rep #:[id number] : 1945 79 From: Joe Soto DO PCP: Dr. Ja Cooley MD Status:AD M [facility] Location: [address] History of Present Illness Chief Complaint: [...] his abdomen or legs. Patient not anticoagulated. [facility] Medical History Parkinson's disease Right [...] Oxygen Delivery Method Room Air Room Air 07/20/25 20:02 Temperature Temperature Source Pulse Rate 97 [...] % (Auto) 51.9 Lymph % (Auto) 36.0 [place] % (Auto) 8.5 Eos % (Auto) 1.9 [...] clinical evidence of acute sinusitis. Reading Location: KWP-HENCA[facility]D-M Cervical Spine CT 06/08/25 18:16 IMPRESSION: No acute osseous abnormality of the cervical spine. Multilevel degenerative changes. Reading Location: [facility] Chest X-Ray 06/08/25 18:43 IMPRESSION: Low lung volumes, without definite evidence of an acute cardiopulmonary abnormality. Reading Location: [facility] 1 view chest x-ray obtained interpreted by [...] MD [Primary Care Provider] - Print Language: Libyan Disposition Disposition: Acute Care Hospital [facility] What to do if you have Problems For any increased pain, shortness of breath, bleeding, nausea or vomiting, chestpain, or any unexpected problems, contact your Primary Care Provider. Call Doctors Registry ([phone]) or report tothe closest Emergency Room. Call 911 if necessary. 06/08/25 7416 Cosigner Signature (if applicable): CC: Dr. Ja Cooley MD ~ Signed [facility]07-20-2025 Radiology Diagnostic study note [facility] Imaging Services [address] [place], [place] [address] Spine Cervical without Contras MR#: [id number] Acct: [id number] Name: LUIS ARMANDO GRIFFITH Rep #: [id number] : 1945 M 79 From: Carolyn Medina MD PCP: Dr. Ja Cooley MD Status: DARIEN Teixeira ER Study:Spine Cervical without Contras Date of Exam: 06/08/25 Exam# [id number] Ordering Dr: Darien Soto DO PROCEDURE: SPINE [...] cervical spine. Multilevel degenerative changes. Reading Location: [id number]-[id number] CC: Dr. Ja Cooley MD; Dr. Joe Soto DO ~ Bicycle Inspector: Signed [facility]07-20-2025 Radiology Diagnostic study note [facility] Imaging Services [address] [place] [address] Brain/Head without Contrast MR#: [id number] Acct: [id number] Name: LUIS ARMANDO GRIFFITH Rep #: [id number] : 1945 M 79 From: Carolyn Medina MD PCP: Dr. Ja Cooley MD Status: RE G ER Study:Brain/Head without Contrast Date of Exa m: 06/08/25 Exam# [id number] Ordering Dr: Darien Soto DO PROCEDURE: BRAIN/HEAD [...] Cooley MD; Dr. Joe Soto DO ~ Bicycle Inspector: Signed [facility]07-20-2025 Radiology Diagnostic study note [facility] Imaging Services [address] [place] [address] Chest 1 View (Portable) MR#: [id number] Acct: [id number] Name: LUIS ARMANDO GRIFFITH Rep #: [id number] : 1945 M 79 From: Carolyn Medina MD PCP: Dr. Ja Cooley MD Status: RE G ER Study:Chest 1 View (Portable) Date of Exam: 06/08/25 Exam# [id number] Ordering Dr: Darien Soto DO PROCEDURE: CHEST [...] Cooley MD; Dr. Joe Soto DO ~ Bicycle Inspector: Signed [facility]06-22-2025 Discharge summary [facility] Medical Records Department [address] [place] [address] Emergency Department Summary 05/11/25 MR#: [id number] Acct: [id number] Name: LUIS ARMANDO GRIFFITH Rep #:[id number] [...] Yes (3 weeks ago) Recent [facility]: [facility] Medical History Parkinson's disease Right bundle branch [...] Unknown History unit/mL (3 mL) subcutaneous pen (ToueNovanceo Max U-300 SoloStar) zinc gluconate 30 mg [...] Care Provider] - As Needed Print Language: Libyan Disposition Disposition: Home, Self Care What to do if you have Problems For any increased pain, shortness of breath, bleeding, nausea or vomiting, chestpain, or any unexpected problems, contact your Primary Care Provider. Call Doctors Registry ([phone]) or report tothe closest Emergency Room. Call 911 if necessary. 05/11/25 4374 Cosigner Signature (if applicable): CC: Dr. Ja Cooley MD ~ Signed [facility]06-22-2025 Discharge summary Author Dano Minor [facility] Note Date/Time May 11, 2025 6:49 pm [facility] Medical Records Department [address] [place] [address] Emergency Department Summary 05/11/25 MR#: [id number] Acct: [id number] Name: LUIS ARMANDO GRIFFITH Rep #:[id number] [...] Care Provider] - As Needed Print Language: Libyan Disposition Disposition: Home, Self Care What to do if you have Problems For any increased pain, shortness of breath, bleeding, nausea or vomiting, chestpain, or any unexpected problems, contact your Primary Care Provider. Call Doctors Registry ([phone]) or report to the closest Emergency Room. Call 911 if necessary. 05/11/251848 <Electronically signed by Dano Minor MD> Cosigner Signature (if applicable): CC: Dr. Ja Cooley MD ~ Signed [facility] Work Phone: 1(825) 675-408606-20-2025 Procedure note [facility] Speech Pathology [address] [place] [address] Modified Barium Swallow Study MR#: [id number] Acct: [id number] Name: LUIS ARMANDO GRIFFITH Rep #:[id number] : 1945 79 From: Heather Braun [facility]-SUPERVISOR CRACK OFF Modified Barium Swallow Patient Information Study Date: 05/09/25 Study Time: 13:05 Direct Billable Minutes: 120 Total Minutes procedure & reportin Diagnosis: Dysphagia R13.10 Referring Physician: Vick Santo Reason for Referral: The patient presents for repeat MBSS recommended by his OP SUPERVISOR CRACK OFF. Patient and wifereport coughing w/ food and [...] cup: Result: 2= enter airway/above vocal folds/ejected [place] Thick Liquid via large single sip: cup: [...] sizes taken during MBSS were large/sequential despite SUPERVISOR CRACK OFF cues for small sip. Decreased bolus size is recommended to decrease aspiration risk. SUPERVISOR CRACK OFF provided information re: bolus control cup. The [...] Supervision: Assist as needed ( informed the SUPERVISOR CRACK OFF that supervision at each meal is not possible,SUPERVISOR CRACK OFF recommends supervision as much as able to [...] further education on strategies & risks. Comment: SUPERVISOR CRACK OFF provided extensive education w/ pt and in results and recommendations of MBSS via review of some images, verbal discussion, and handouts (Easy to Chewdiet texture information/testing, MBSS Recommendations, and Provale Bolus Control Cup information). Education well received. Pt would benefit from continued training in safe swallowing precautions. Status Active ST Patient: Active Contact Information [facility] Speech Therapy:: Heather Titus M.A. CCC-SUPERVISOR CRACK OFF? Speech-Language Pathologist?? [facility] [address] [place] [address]? [email or web address]?? [phone] 05/09/25 1600 [address] CCC-SUPERVISOR CRACK OFF> Date/Time Heather Titus M.A. CCC-SUPERVISOR CRACK OFF Co-Signature Required for all Medicare patients Date/Time Co-Signature CC: ~ [facility]05-25-2025 Hospital Discharge instructions* Discharge Instructions* Chetan Powell MD - 04/13/2025 9:41 PM EDT You had 10 stitches placed. Please present to an urgent care, your primary care physician, or back to the emergency department in 5-7 days to have your stitches removed. * Attachments The following attachments cannot be sent through Care Everywhere. * Nose Fracture (Libyan) documented in this [facility]05-25-2025 Emergency department Note* Chetan Powell MD - [...] History[4] SCREENINGS PHYSICAL EXAM ED Triage Vitals [04/13/250] Temp Heart Rate Resp BP 36.7 C [...] CT maxillofacial I reviewed external records from: [facility] demonstrating 1 prescription, for Muddy CT demonstrating bilateral nasal bone fractures. The [...] initial encounter Medications lidocaine-EPINEPHrine (Xylocaine W/EPI) 1 %-1:072050 injection 10 mL (has no administration in [...] Consent obtained: Verbal Consent given by: Patient Morrice protocol: Imaging studies available: yes Patient identity [...] TO: [facility] [address] [address] Schedule an appointment as soon [...] scheduled for the surgery on 04/17/2018 at [facility] COPD (chronic obstructive pulmonary disease) ([facility]) Diabetes mellitus type 2, controlled (CMS/HCC) ([facility]) [place]ES (hard of hearing) HAS HEARING AID BOTH EARS , BUT DID NOT WEAR THEM Hyperlipidemia Hypertension MELISSA on CPAP [2] Past Surgical History: Procedure Laterality Date COLONOSCOPY COLONOSCOPY ELBOW SURGERY Left 1990 Lateral epicondylitis surgery EYE SURGERY bilat cataracts and implants JOINT REPLACEMENT Bilateral TKA L 2005, TKA R 2011 SKIN BIOPSY SPINAL FUSION 2000 L2,3,4; AT [facility] WRIST ARTHROSCOPY (HISTORICAL) Left 04/17/2018 [...] forehead above left eye documented in this [facility]05-25-2025 Emergency department Triage note* Cielo Valverde RN - 04/13/2025 8:38 PM EDT Pt presents to ED via EMS from restaurant for c/o left frontal head lac after losing footing and falling onto face on the ground. Pt has hx of parkinson's. Abrasion noted to forehead, small lac notedto bridge of nose as well as a large lac to forehead above left eye [id number] Physician Emergency department Note* Chetan Powell MD [...] CT maxillofacial I reviewed external records from: [facility] demonstrating 1 prescription, for Muddy CT demonstrating bilateral nasal bone fractures. The [...] initial encounter Medications lidocaine-EPINEPHrine (Xylocaine W/EPI) 1 %-1:610359 injection 10 mL (has no administration in [...] Consent obtained: Verbal Consent given by: Patient Morrice protocol: Imaging studies available: yes Patient identity [...] REFERRED TO: [facility] [address] [place] [phone] Schedule an appointment as soon as possible [...] scheduled for the surgery on 04/17/2018 at [facility] COPD (chronic obstructive pulmonary disease) ([facility]) Diabetes mellitus type 2, controlled ([facility]/HCC) ([facility]) [place] (hard of hearing) HAS HEARING AID BOTH EARS , BUT DID NOT WEAR THEM Hyperlipidemia Hypertension MELISSA on CPAP [2] Past Surgical History: Procedure Laterality Date COLONOSCOPY COLONOSCOPY ELBOW SURGERY Left 1990 Lateral epicondylitis surgery EYE SURGERY bilat cataracts and implants JOINT REPLACEMENT Bilateral TKA L 2005, TKA R 2011 SKIN BIOPSY SPINAL FUSION 2000 L2,3,4; AT [facility] WRIST ARTHROSCOPY (HISTORICAL) Left 04/17/2018 [...] Drug use: No Chetan Powell MD 04/13/252221 [facility]3892 Discharge summary [facility] Medical Records Department [address] [place] [address] Emergency Department Summary 04/09/25 MR#: [id number] Acct: [id number] Name: LUIS ARMANDO GRIFFITH Rep #:[id number] : 1945 79 From: Surya Dumont MD PCP: Dr. Ja Cooley MD Status:DARIEN G ER Location: ED HPI History of [...] blood thinners. Tetanus Immunization: <5 years PFSH [facility] Medical History Parkinson's disease Right bundle branch [...] change from the prior exam. Reading Location: [facility] Cervical Spine CT 04/09/25 11:34 IMPRESSION: 1. No acute fracture. 2. Degenerative changes of the cervical spine as described. Reading Location: [facility] Discharge Plan Triage Chief Complaint: Head [...] wound, new or worsening symptoms. Print Language: Libyan Disposition Disposition: Home, Self Care What to do if you have Problems For any increased pain, shortness of breath, bleeding, nausea or vomiting, chestpain, or any unexpected problems, contact your Primary Care Provider. Call Doctors Registry ([phone]) or report tothe closest Emergency Room. Call 911 if necessary. 04/09/25 1255 Cosigner Signature (if applicable): CC: Dr. Ja Cooley MD ~ Signed [facility]05-21-2025 Radiology Diagnostic study note [facility] Imaging Services [address] [place] [address] Spine Cervical without Contras MR#: [id number] Acct: [id number] Name: LUIS ARMANDO GRIFFITH Rep #: [id number] : 1945 M 79 From: Kristy Corey MD PCP: Dr. Ja Cooley MD Status: RE G ER Study:Spine Cervical without Contras Date of Exam: 04/09/25 Exam# [id number] Ordering Dr: Surya Dumont MD EXAM: CT [...] the cervical spine as described. Reading Location: [facility] CC: Dr. Surya Dumont MD; Dr. Ja Cooley MD ~ Bicycle Inspector: Signed [facility] [facility] Radiology Diagnostic study note [facility] Imaging Services [address] [place] [address] Brain/Head without Contrast MR#: [id number] Acct: [id number] Name: LUIS ARMANDO GRIFFITH Rep #: [id number] : 1945 M 79 From: Kristy Corey MD PCP: Dr. Ja Cooley MD Status: RE G ER Study:Brain/Head without Contrast Date of Exa m: 04/09/25 Exam# [id number] Ordering Dr: Surya Dumont MD EXAM: CT [...] change from the prior exam. Reading Location: [facility] CC: Dr. Surya Dumont MD; Dr. Ja Cooley MD ~ Bicycle Inspector: Signed [facility]05-21-2025 Hospital Discharge instructions Additional Instructions Have brandi removed by your primary care provider in 7 to 10 days. There were a total of 5 brandi inserted. Return to the emergency department with fever, drainage of pus from wound, new or worsening symptoms.[facility] Work Phone: 1(424) 684-186005-01-2025 Evaluation note* Diagnosis Onset Date Resolution Status Admit Date Dysphagia acute March 20, 2025 3:22pm Abnormality of gait and mobility chr onic March 20, 2025 3:22pm Dementia chronic March 20, 2025 3:22pm Parkinson's disease chronic March 202024 3:22pm Polyneuropathy chronic March 20 2 025 3:22pm Acute sinusitis acute May 9:40pm Closed head injury acute May 212024 9:40pm Dehydration acute June 08 9:40pm History of dementia acute June 08, 2025 9:40pm History of Parkinson's disease acute June 08, 2025 9:40pm Obesity (BMI 30-39.9) acute May 9:40pm Syncope acute June 08 9:40pm Syncope and collapse acute June 08, 2025 9:40pm [facility] Work Phone: 1(763) 741-872405-01-2025 Evaluation note* Diagnosis Onset Date Resolution Status Admit Date Dysphagia acute March 20, 2025 3:22pm Abnormality of gait and mobility chr onic March 20, 2025 3:22pm Dementia chronic March 20, 2025 3:22pm Parkinson's disease chronic March 202024 3:22pm Polyneuropathy chronic March 20 025 3:22pm Acute sinusitis resolved May 9:40pm Dehydration resolved June 08 9:40pm Syncope and collapse resolved June 08, 2025 9:40pm Closed head injury inactive May 212024 9:40pm History of dementia inactive June 08, 2025 9:40pm History of Parkinson's disease inact joseph June 08, 2025 9:40pm Obesity (BMI 30-39.9) inactive May 9:40pm Syncope inactive June 08 9:40pm [facility] Work Phone: 1(820) 517-404205-01-2025 Evaluation note* Diagnosis Onset Date Resolution Status [...] 08 9:40pm Dysphagia acute June 24 2:20pm [facility] Work Phone: 1(398) 289-139405-01-2025 Evaluation note* Diagnosis Onset Date Resolution Status Admit Date Dysphagia acute March 20, 2025 3:22pm Abnormality of gait and mobility chronic March 20, 2025 3: 22pm Dementia chronic March 20, 2025 3:22pm Parkinson's disease chronic March 202024 3:22pm Polyneuropathy chronic March 20 025 3:22pm Acute sinusitis resolved May 9:40pm [...] 24 2:20pm Fatigue acute June 26 1:05pm [facility] Work Phone: 1(862) 423-912305-01-2025 Evaluation note* Diagnosis Onset Date Resolution Status [...] fibrillation chron ic June 27, 2025 1:22pm [facility] Work Phone: 1(602) 717-665605-01-2025 Evaluation note* Diagnosis Onset Date Resolution Status Admit Date Dysphagia acute March 20, 2025 3:22pm Abnormality of gait and mobility chronic March 20, 2025 3: 22pm Dementia chronic March 20, 2025 3:22pm Parkinson's disease chronic March 202024 3:22pm Polyneuropathy chronic March 20, 3:22pm Acute sinusitis resolved May 9:40pm Dehydration [...] fibrillation chron ic June 27, 2025 1:22pm [facility] Work Phone: 1(706) 416-252403-28-2025 Radiology Diagnostic study note [facility] Imaging Services [address] [place], [place] [address] Spine Cervical without Contras MR#: [id number] Acct: [id number] Name: LUIS ARMANDO GRIFFITH Rep #: [id number] : 1945 M 79 From: Roopa Corbett MD PCP: Dr. Ja Cooley MD Status: RE G ER Study:Spine Cervical without Contras Date of Exam: 02/14/25 Exam# [id number] Ordering Dr: Darien Soto DO PROCEDURE: SPINE [...] ACUTE CERVICAL FRACTURE. DEGENERATIVE CHANGES. Reading Location: [facility] CC: Dr. Ja Cooley MD; Dr. Joe Soto DO ~ Bicycle Inspector: Signed [facility]03-28-2025 Radiology Diagnostic study note [facility] Imaging Services [address], [place] [address] Brain/Head without Contrast MR#: [id number] Acct: [id number] Name: LUIS ARMANDO GRIFFITH Rep #: [id number] : 1945 M 79 From: Roopa Corbett MD PCP: Dr. Ja Cooley MD Status: RE G ER Study:Brain/Head without Contrast Date of Exa m: 02/14/25 Exam# [id number] Ordering Dr: Darien Soto DO EXAM: BRAIN/HEAD [...] ischemic change and age-related change. Reading Location: [facility] CC: Dr. Ja Cooley MD; Dr. Joe Soto DO ~ Bicycle Inspector: Signed [facility]03-20-2025 Evaluation note* Diagnosis Onset Date Resolution [...] Polyneuropathy chronic March 20, 2 025 3:22pm [facility] Work Phone: 1(746) 542-509303-04-2025 Radiology Diagnostic study note [facility] Imaging Services [address] [place] [address] Chest PA and Lateral MR#: [id number] Acct: [id number] Name: LUIS ARMANDO GRIFFITH Rep #: [id number] : 1945 M 79 From: Kristy Corey MD PCP: Dr. Ja Cooley MD Status: RE G CLI Study:Chest PA and Lateral Date of Exam: 01/21/25 Exam# [id number] Ordering Dr: Ja Cooley MD EXAM: XR Chest, 2 Views CLINICAL INDICATION: TECHNIQUE: Frontal and lateral views of the chest. COMPARISON: No relevant prior studies available. FINDINGS: LUNGS AND PLEURAL SPACES: Unremarkable. No consolidation. No pneumothorax. HEART: Unremarkable. No cardiomegaly. MEDIASTINUM: Unremarkable. Normal mediastinal contour. BONES/JOINTS: Unremarkable. No acute fracture. RAD/Chest PA and Lateral IMPRESSION: No acute cardiopulmonary process. Reading Location: [facility] CC: Dr. Ja Cooley MD ~ Bicycle Inspector: Signed [facility]01-21-2025 Evaluation note* Diagnosis Onset Date Resolution Status Admit Date Diplopia acute December 10, 2024 10:37am Dysphagia acute December 10, 2024 10:37am Abnormality of gait and mobility chronic December 10 10:37am Dementia chronic December 10, 2024 10:37am Parkinson's disease chronic 2024 10:37am Polyneuropathy chronic December 102024 10:37am [facility] Work Phone: 1(208) 745-744701-21-2025 Evaluation note* Diagnosis Onset Date Resolution Status [...] 06, 2025 1:00pm Polyneuropathy chronic January 1:00pm [facility] Work Phone: 1(162) 795-338101-21-2025 Evaluation note* Diagnosis Onset Date Resolution Status [...] 3:22pm Polyneuropathy chronic March 20, 2 3:22pm [facility] Work Phone: 1(992) 701-885408-02-2023 [facility] 02-15-2023 NoteHNO ID: [id number] Author: Willis Ryder, PT, DPT Service: ? Author Type: Physical Therapist Type: Progress Notes Filed: 02/15/2023 7:45 AM Note Text: 02/15/2023 [facility] PHYSICAL THERAPY DISCONTINUANCE [...] to fx of foot. Willis Ryder, PT, [facility]03-28-2023 Miscellaneous Notes* Telephone Encounter - Mary Harrison RN - 02/14/2023 3:08 PM EDT MC message sent to patient and for further assessment. Awaiting reply. YVONNE Naik, RN February 14, 2023 3:08 PM * Telephone Encounter - Mary Harrison RN - 02/14/2023 3:04 PM EDT Received voicemail from patients' on Mon02/14/2023 2:28 PM Transcript below: This is rBennen Griffith. My phone number is [phone]. I'm calling for my Luis Armando Griffith. [...] with CAR for further guidance. Mary Harrison, MSN, RN February 14, 2023 3:04 PM * [...] is very concerned. Please call her at [phone]. Raeann Vizcarra documented in this encounterSt. [facility]03-25-[address] Farooq [facility] February 11, 2023 2:01pm Note Date/Time February 11, 2023 1:2 0pm [facility] Medical Records Department [address] [place] [address] Emergency Department Summary 02/11/23 MR#: [id number] Acct: [id number] Name: LUIS ARMANDO GRIFFITH Rep #:[id number] [...] bear weight on it since the injury. [facility] Medical History Arthritis Back problem [...] no malocclusion, able to move his mandible tazc-gbw-iuzgt without any discomfort. Zygomatic arch is nontender [...] motor deficits and no sensory deficits noted [place] Coma Scale: document GCS findings Spontaneous Obeys [...] Moderate adjacent soft tissue swelling. Electronically Signed: Genna Blanton MD, JD at 13:46 EDT , Brain CT 02/11/23 13:22 IMPRESSION: No acute changes. Moderate cortical and central atrophy. Mild chronic microvascular ischemic change. Mild cerebellar atrophy. Electronically Signed: Genna Blanton MD, JD at 13:49 EDT , [...] your Primary Care Provider. Call [facility] ([phone]) or report to the closest Emergency Room. Call 911 if necessary. 02/11/23 1401 <Electronically signed by Osman Farooq MD> Cosigner Signature (if applicable): CC: Dr. Ja Cooley MD; Dr. Arnaud Jean-Baptiste MD ~ Signed [facility] Work Phone: 1(809) 589-726002-24-2023 Miscellaneous Notes* Telephone Encounter - Karen Parra RN - 01/13/2023 2:26 PM EST Received voicemail 01-13-23 at 12:31 PM. My name is Brennen Griffith. My phone number is [phone]. This is in regard to Luis Armando [...] is Brennen Griffith. My phone number is [phone]. My 's name is Luis Armando Griffith. [...] to help Luis Armando. Thank you. Abbey dumasbijal now. Call to [...] to provider for review. documented in this encounterSt. Rita'S Hospital01-23-2023 NoteHNO ID: [id number] Author: Gary Ruiz APRN.YOUTH CAREER SPECIALIST Service: ? Author Type: Nurse Practitioner Type: Progress Notes Filed: 12/13/2022 10:48 PM Note Text: [facility] - FOLLOW UP EVALUATION Ja Cooley MD [address] [facility] [address] [facility] [address] Dear Ja Cooley MD: I had the [...] Flowsheet Row OT/PT/Speech Visit from 10/04/2022 in [facility] OT/PT/Speech Visit from 08/25/2022 in [facility] Global Physical [...] three times daily. insulin (more content not included)...[facility]01-23-2023 Instructions* Patient Instructions* Gary Ruiz APRN.YOUTH CAREER SPECIALIST - 12/12/2022 2:56 PM EST It was [...] canhave them on file here at the [facility]. Interested in clinical research? Not currently Movement Disorders Medication Schedule: Medications 6am 12pm 5pm Bedtime Sinemet 25/100 2 2 1 1 Sertaline 50mg 1 Return in about 6 months (around 06/11/2023). If there are any concerns before your next visit, please call or you can send a message through [employer]. You can also now schedule and select appointments through [employer]. Gary Ruiz APRN.GUADALUPE documented in this encounterSt. Rita'S Hospital01-23-2023 History of Present illness Narrative* Gary Ruiz APRN.GUADALUPE - 12/12/2022 2:00 PM EST [facility] - FOLLOW UP EVALUATION Ja Cooley MD [address] [facility] [address] [facility] [address] Dear Ja Cooley MD: I had the [...] Flowsheet Row OT/PT/Speech Visit from 10/04/2022 in [facility] OT/PT/Speech Visit from 08/25/2022 in [facility] Global Physical [...] D3 50 MCG, 2,000 UNIT, GUMMIES) fluticasone lectrkf-oocdqagbmfkq-rlkqtfcddc (TRELEGY ELLIPTA) 200-62.5-25 mcg powder inhaler Inhale1 [...] OXYGEN-AIR DELIVERY SYSTEMS MISC Inhale as instructed. [employer] CALIXTO 2 SENSOR kit use to TEST BLOOD SUGAR as directed CHANGE EVERY 14 DAYS SURE COMFORT PEN NEEDLE 31 gauge x 5/16 No current facility-administered medications for this visit. Objective Vital Signs: Ht 177.8 cm (5' 10) Wt 118.3 kg (260 lb 12.8 oz) SpO2 96% BMI 37.42 kg/m Orthostatic Vitals: Sitting: BP 124/78 Pulse 114 Standing: BP 105/69 Pulse 115 No LMP for male patient. Body mass index is 37.42 kg/m . Movement Disorders Scales Performed: [place] Cognitive Assessment (MoCA) Visuospatial/Executive 5 Naming 2 [...] parkinsonian. Then he underwent surgical evaluation at [facility] and DaTscan done there was [...] canhave them on file [facility]. Interested in clinical research? Not currently Updated Movement Disorders Medication Schedule: Medications 6am 12pm 5pm Bedtime Sinemet 25/100 2 2 1 1 Sertaline 50mg 1 Level of service : 25255 (40-54 min). Time spent 51 ( 1:54pm-2:45pm) min on the day of service, which included preparing to see the patient, gead-aj-ytps patient care, completing clinical documentation, obtaining and/or reviewing separately obtained history, performing a medically appropriate examination, and counseling and educating the patient/family/caregiver. Gary Ruiz APRN.YOUTH CAREER SPECIALIST documented in this encounterSt. Rita'S Hospital11-21-2022 Miscellaneous Notes* Telephone Encounter - Thaddeus Wilkinson MD - 10/10/2022 3:30 PM EST Thanks for the FYI. Well done! JHS * Telephone Encounter - Mary Harrison RN - 10/10/2022 2:32 PM EST Received voicemail from patient on Mon10/10/2022 9:09 AM Transcript below: Morning this is Luis Armando Griffith and my phone number is [phone]. I calling to find out if there'sa [...] Voicemail left directing patient to a detailed [employer] message. Requested reply via MC or [employer]. Provided office number. Message shared with covering provider as KA is OOO. Mary Harrison, MSN, RN October 10, 2022 2:44 PM documented in this encounterSt. Rita'S Hospital11-15-2022 NoteHNO ID: [id number] Author: Willis Ryder, PT, DPT Service: ? [...] Time Minutes (timed/untimed): 45 Willis Ryder PT, [facility]11-15-2022 History of Present illness Narrative* Willis Ryder PT, [facility] - 10/04/2022 11:59 AM EST Episode Visit [...] Time Minutes (timed/untimed): 45 Willis Ryder PT, DPT documented in this encounterSt. Rita'S Hospital10-28-2022 Miscellaneous Notes* Addendum Note - Jaylyn [...] accepted: Orders * [facility] - 09/16/2022 11:40 AM EDT Script pending to go to [facility]. documented in this encounterSt. Rita'S Hospital10-28-2022 Miscellaneous Notes* Telephone Encounter - Mary Harrison RN - 09/16/2022 8:48 AM EDT Called and left voicemail that an updated RX had been sent for the Cymbalta. Provided office number for [employer] and option to message via [employer]. YVONNE Naik, RN September 16, 2022 8:48 [...] and father and update theoffice as needed. Mary Harrison, MSN, RN September 14, 2022 2:42 PM * [...] detailed message requesting [employer]. Provided office number forisabel back. Awaiting reply. YVONNE Naik, RN September 13, 2022 12:31 PM * Telephone Encounter - Lena Adams - 09/12/2022 2:34 PM EDT NI PHONE NAME OF CALLER: Brennen RELATIONSHIP TO PATIENT: spouse PATIENT ID'D BY NAME/: yes REASON FOR CALL: States that his PD symptoms are worsening and she would like to speak with Stefania. CALLBACK #: [phone] OK TO LEAVE MESSAGE: ok only on this number - do not leave at home number LAST FUV: 08/04/22 with CAR documented in this encounterSt. Rita'S Hospital10-27-2022 NoteHNO ID: [id number] Author: Willis Ryder, PT, DPT Service: ? [...] Patient to be seen for Therapeutic exercise (06859);Neuromuscular re-education (92384);Manual therapy (98411);Therapeutic activities (83926);Self-mcfp management (11384);Gait Training (16457);Functional training;General Conditioning;Body Mechanics Training;Patient/Family/Caregiver Education PLAN FOR [...] Time Minutes (timed/untimed): 45 (more content not included)...[facility] HospitalIfbiefjo03-84-5609 NoteHNO ID: [id number] Author: Aleida Ramirez MD Service: ? Author [...] not see the pt. REFERRAL SOURCE: [facility] Physician - Dr. Nieves CHIEF COMPLAINT: [...] 1 tablet by mouth twice daily. fluticasone knxuwrf-dmoddtkbcxnh-zffjyvzrdp (TRELEGY ELLIPTA) 200-62.5-25 mcg powder inhaler Inhale [...] Negative for malaise, signif (more content not included)...[facility]10-14-2022 History of Present illness Narrative* Aleida Ramirez [...] could not see the pt. REFERRAL SOURCE: F Physician - Dr. Nieves CHIEF COMPLAINT: Anxiety. [...] 1 tablet by mouth twice daily. fluticasone mphxrgt-vcvemxbnukqq-tggpdswxfa (TRELEGY ELLIPTA) 200-62.5-25 mcg powder inhaler Inhale1 [...] prior psychiatrist Therapist: No prior therapist Current Pigment Weigher: None Last Hospitalization: Denies hospitalization. ECT: None Previous Discontinued Psychiatric Med Trials: None SUBSTANCE USE HISTORY: Nicotine: 40 py, quit 23 years ago Caffeine: Coffee, 3 cups/day Alcohol: Drank when he was younger, Marijuana: No history of use or dependence Cocaine: No history of use or dependence Opiods: No history of use or dependence SPIRITUALITY: Caodaism [facility]: Luis Armando Griffith is the oldest of 6 siblings. The patient was born and raised in [place]. He completed school He described his childhood [...] Speech/Language: The patient demonstrates appropriate tone, prosody, loly, phonetics, and syntax Mood: euthymic Affect: Full [...] PAGER : see directory documented in this encounterSt. Rita'S Hospital10-06-2022 NoteHNO ID: [id number] Author: Willis Ryder, PT, DPT Service: ? [...] Time Minutes (timed/untimed): 38 Willis Ryder PT, DPTMSt. John of God HospitalJcdridfd66-56-7680 History of Present illness Narrative* Willis Ryder [...] Willis Ryder PT, DPT documented in this encounterSt. Rita'S Hospital09-22-2022 NoteHNO ID: [id number] Author: Willis Ryder PT, DPT Service: ? [...] Planned: 4 Planned Treatment Interventions: Therapeutic exercise (47173);Neuromuscular re-education (89766);Manual therapy (05740);Therapeutic activities (72728);Self-mcfp management (01315);Gait Training (26554);Functional training;General Conditioning;Body Mechanics Training;Patient/Family/Caregiver Education PLAN FOR [...] the average of the (more content not included)...[facility] HospitalUibvwwpx14-16-9934 NoteHNO ID: [id number] Author: Jaylyn Nieves MD Service: ? Author Type: Physician Type: Progress Notes Filed: 08/04/2022 5:35 PM Note Text: [facility] - FOLLOW UP EVALUATION Ja Cooley MD [address] [place] [address] [facility] [address] I had the pleasure of seeing Mr. [...] 1 tablet by mouth twice daily. fluticasone bwftqwb-gffnfbvqpkzw-mtpohyyjhj (TRELEGY ELLIPTA) 200-62.5-25 mcg powder inhaler Inhale [...] 24 hr table (more content not included)... [facility]09-15-2022 Instructions* Patient Instructions* Jaylyn Nieves MD - [...] or you can send a message through [employer]. You can also now schedule and select appointments through [employer]. Jaylyn Nieves MD documented in this encounterSt. Rita'S Hospital09-15-2022 History of Present illness Narrative* Jaylyn Nieves MD - 08/04/2022 2:20 PM EDT [facility] - FOLLOW UP EVALUATION Ja Cooley MD [address] [facility] [address] [facility] [address] I had the pleasure of seeing Mr. [...] 1 tablet by mouth twice daily. fluticasone qnpkxbv-nswxkxdbszst-jhpxxopvjz (TRELEGY ELLIPTA) 200-62.5-25 mcg powder inhaler Inhale1 [...] parkinsonian. Then he underwent surgical evaluation at [facility] and DaTscan done there was [...] gait he reports both lightheadedness and imbalance. [place] symptomatic today upon standing but orthostatics were [...] or around: 11/03/22 Level of service : 43370 (40-54 min). Time spent 45 min on the day of service, which included preparing to see the patient, iryg-vz-kiwp patient care, completing clinical documentation, performing a [...] Sincerely, Jaylyn Nieves MD documented in this encounterSt. Rita'S Hospital09-09-2022 NoteHNO ID: [id number] Author: Willis Ryder, PT, DPT Service: ? Author Type: Physical Therapist Type: Progress Notes Filed: 07/29/2022 4:54 PM Note Text: 07/29/2022 [facility] PHYSICAL THERAPY DISCONTINUANCE [...] therapy or scheduled additional follow-up appointments. Willis Ryder, PT, [facility]09-01-2022 Miscellaneous Notes* Telephone Encounter - Mary Harrison RN - 07/21/2022 12:08 PM EDT Received voicemail from patient's on Rosalia 07/21/2022 10:52 AM Transcript below: Kaila my name is Brennen Griffith. My 's name is Luis Armando Griffith. He is a patient of Dr. Gordillo. My phone number is [phone]. I'm calling to speak to somebody regarding [...] Updates shared with MD CAR & SS, METROLOGY TECHNICIAN. If any guidance is suggested, RN will contact with feedback. YVONNE Naik, RN July 21, 2022 12:42 PM documented in this encounterSt. Rita'S Hospital06-29-2022 Miscellaneous Notes* Telephone Encounter - Jaylyn [...] REJI: No Blossom S documented in this encounterSt. Rita'S Hospital05-10-2022 NoteHNO ID: [id number] Author: Maine Medel, PT, DPT Service: ? [...] SLS >10 seconds B [facility]. Patient will demonstrate increase in B hip strength strength to 5/5 during manual muscle testing in order to improve function for balance Increase strength in ankle to 5/5 for balance. Be able to turn in a [place] in 8 steps. Decrease tug to <10 seconds without AD for improved loly and step length Patient Goals: to learn about PD, to reduce falls Planned Interventions, Frequency, and Duration: Current Frequency: 1x/week Duration: 4 weeks (starting in one month) Total Number of Visits Planned: 4 Planned Treatment Interventions: Therapeutic exercise (65659);Neuromuscular re-education (46056);Manual therapy (15844);Therapeutic activities (54040);Self-mcfp management (19323);Gait Training (46531);Functional training;General Conditioning;Body Mechanics Training PLAN FOR NEXT [...] for double vision Visi (more content not included)...[facility] HospitalBifrkjay39-83-6528 NoteHNO ID: [id number] Author: Heena Romano OTR/Eric Service: ? Author Type: Occupational Therapist Type: Progress Notes Filed: 03/29/2022 5:40 PM Note Text: Episode Visit Count: 2 Therapist That Will Oversee The Plan Of Care: Maria Isabel Romano Start of Care Date: 03/29/22 Onset Date: 06/14/21 Plan of Care Certification Date: 03/29/22 Next Certification Due Date: 03/29/22 Patient Identified by Name and Date of : Yes [facility] OCCUPATIONAL THERAPY EVALUATION [...] WITH LEVEL OF FUNCTION: Hand Strength R Gate Services Supervisor Position 2 (lbs): 71 lbs L Gate Services Supervisor Position 2 (lbs): 60 lbs R Lateral [...] States/Identifies;Return Demonstration TREATMENT: OT Treatment Interventions : Self-Prison Management Evaluation Self-Prison Management: 1: Pt and spouse educated in role of OT 2: Discussed importance of hydrating with medication and avoiding proteins with meds (more content not included)...[facility] HospitalWwbarcht91-48-5831 NoteHNO ID: [id number] Author: Michelle Ro CCC-SUPERVISOR CRACK OFF Service: ? Author Type: Speech Language Pathologist Type: Progress Notes Filed: 03/29/2022 3:59 PM Note Text: Episode Visit Count: 1 Therapist That Will Oversee The Plan Of Care: Andrade Start of Care Date: 03/29/22 Onset Date: 11/20/20 Plan of Care Certification Date: 03/29/22 Patient Identified by Name and Date of : Yes [facility] SPEECH and SWALLOW [...] position 20-30 minutes following all oral intake SUPERVISOR CRACK OFF Recommendations: Swallowing Precautions;Discontinue Speech Therapy Results and [...] MBS (pt reports had MBS done at [facility] last year, which pt was told 'he did fine' and no recommendations for follow up ST or diet modifications made) Clinical Swallow [place] Swallow Protocol: Fail Fail: Coughing episodes (x1 [...] clear/cough after water (more content not included)... [id number] History of Present illness Narrative* Maine Medel, [...] >10 seconds B [facility]. Patient will demonstrate increase in B hip strength strength to 5/5 during manual muscle testing inorder to improve function for balance Increase strength in ankle to 5/5 for balance. Be able to turn in a [place] in 8 steps. Decrease tug to <10 seconds without AD for improved loly and step length Patient Goals: to learn about PD, to reduce falls Planned Interventions, Frequency, and Duration: Current Frequency: 1x/week Duration: 4 weeks (starting in one month) Total Number of Visits Planned: 4 Planned Treatment Interventions: Therapeutic exercise (12342);Neuromuscular re- education (62494);Manual therapy (90390);Therapeutic activities (02697);Self- mcfp management (27019);Gait Training (96320);Functional training;General Conditioning;Body Mechanics Training PLAN FOR NEXT [...] None Gait Observation: decreased step length, decreased loly, decreased arm swing, increased trunk flexion Functional [...] [place] Medel PT DPT documented in this encounterSt. [facility] History of Present illness Narrative* Michelle Ro CCC-SUPERVISOR CRACK OFF - 03/29/2022 2:49 PM EDT Episode Visit Count: 1 Therapist That Will Oversee The Plan Of Care: Andrade Start of Care Date: 03/29/22 Onset Date: 11/20/20 Plan of Care Certification Date: 03/29/22 Patient Identified by Name and Date of : Yes [facility] SPEECH and SWALLOW [...] position 20-30 minutes following all oral intake SUPERVISOR CRACK OFF Recommendations: Swallowing Precautions;Discontinue Speech Therapy Results and [...] MBS (pt reports had MBS done at [facility] last year, which pt was told 'he [...] Eval Sound Production with Language Expression and Sleep Lab Technician (50039) Swallow / Dysphagia (29963): Skilled Intervention: Educated and advised patient / caregiver on texture and liquid consistency recommendations., Instructed patient / caregiver on recommended compensatory strategies to maximize safety with oral intake while maintaining nutrition, hydration and medication stability. Speech/Language Therapy (79091): Skilled Intervention: Educated and instructed patient on [...] Eval Sound Production with Language Expression and Sleep Lab Technician (38416), Clinical Swallow Evaluation (00921), Speech Treatment (36468) and Dysphagia Treatment (87581) Total time / Length of visit: 60 minutes Michelle Ro CCC-SUPERVISOR CRACK OFF documented in this encounterSt. Rita'[facility]05-10-2022 NoteHNO ID: [id number] Author: Jaylyn Nieves MD Service: ? Author Type: Physician Type: Progress Notes Filed: 03/29/2022 7:35 PM Note Text: [facility] - Multidisciplinary Clinic Jaylyn Nieves [address] [facility] [address] Ja Cooley MD [address] [facility] [facility] [address] I had the pleasure of seeing Mr. [...] since last visit underwent surgical evaluation at [facility] and DaTscan done there indicative [...] addressed during this visit (more content not included)...[facility]05-10-2022 Instructions* Patient Instructions* Jaylyn Nieves MD - [...] or you can send a message through [employer]. You can also now schedule and select appointments through [employer]. Jaylyn Nieves MD documented in this encounterSt. Rita'[facility] Hospital05-10-2022 History of Present illness Narrative* Jaylyn Nieves MD - 03/29/2022 12:27 PM EDT [facility] - Multidisciplinary Clinic Jaylyn Nieves [address] [facility] [address] Ja Cooley MD [address] [facility] [address] [facility] [address] I had the pleasure of seeing Mr. [...] Then since last visit underwent surgical evaluation[facility] and DaTscan done there indicative [...] in 1 week Level of service : 03735 (40-54 min). Time spent 53 min on the day of service, which included preparing to see the patient, jwkq-fi-bair patient care, completing clinical documentation, counseling and [...] Sincerely, Jaylyn Nieves MD documented in this encounterSt. Rita'[facility] Hospital05-04-2022 Miscellaneous Notes* Telephone Encounter - Cali Haas MA - 03/23/2022 10:44 AM EDT I called patient to get him pre-roomed for his upcoming appointment. I had to leave a voicemail fora returned call. If patient calls back please transfer call to myself or a clinical staff member to complete this process. Thanks! Cali Haas MA documented in this encounterSt. Rita'[facility] Hospital04-28-2022 NoteHNO ID: [id number] Author: Jaylyn Nieves MD Service: ? Author Type: Physician Type: Progress Notes Filed: 03/18/2022 4:12 PM Note Text: [facility] - FOLLOW UP EVALUATION No referring provider defined for this encounter. Ja Cooley MD [facility] [address] [address] I had the pleasure of seeing Mr. [...] to be helpful Interval History Seen at [facility] for surgical evaluation. SDR was too low [...] mouth three times daily. (more content not included)...[facility]04-28-2022 Instructions * Patient Instructions* Jaylyn Nieves MD [...] or you can send a message through [employer]. You can also now schedule and select appointments through [employer]. Jaylyn Nieves MD [facility] Pre-Visit Instructions Welcome to the Parkinson s Multi-Disciplinary Clinic! These visits will consist of four separate appointments provided by Neurology, Speech Therapy, Physical Therapy and Occupational Therapy. The appointments will take place at the [facility] and all occur on the same day. [...] appointment. This call will serve as a ubd-ksumj-or and be used to review your medications, [...] caregivers, and staff alike. documented in this encounterSt. Rita'[facility] Hospital04-28-2022 History of Present illness Narrative* Jaylyn Nieves MD - 03/17/2022 2:51 PM EDT [facility] - FOLLOW UP EVALUATION No referring provider defined for this encounter. Ja Cooley MD [address] [facility] [address] [facility] [address] I had the pleasure of seeing Mr. [...] to be helpful Interval History Seen at [facility] for surgical evaluation. SDR was too low [...] Then since last visit underwent surgical evaluationat [facility] and DaTscan done there indicative [...] or around: 07/17/22 Level of service : 46165 (40-54 min). Time spent 54 min on the day of service, which included preparing to see the patient, lgqo-du-pywm patient care, completing clinical documentation, obtaining and/or [...] Sincerely, Jaylyn Nieves MD documented in this encounterSt. [facility] Hospital03-24-2022 History of Present illness Narrative* Jaspreet Qureshi MA - 02/10/2022 11:48 AM EDT Images from the original note were not included. SDR for Lisset_S came in at 0.34 with 973 available elements. Other than the low SDR no significantCT deviations noted. documented in this [id number] History of Present illness Narrative* Barb Morton MD - 12/22/2021 10:05 AM EST Video Visit [facility], NEUROSCIENCE [facility] [facility] [address] [facility] [address] Via Real-time Synchronous Audiovisual [facility] 12/21/2021 Barb Morton MD Provider Location: [facility] Patient Location Sales Representative Canvas Products: None Patient Location: Patient's Home Patient: Luis [...] that there are some limitations compared to kzwc-nf-njvb evaluations. We elected to proceed. Subjective Patient [...] Office# Barb Morton MD documented in this [id number] Instructions* Patient Instructions* Barb Morton MD - 12/21/2021 1:33 PM EST Parkinson's Disease Continue the medication Use seroquel at night If you decide that you want to switch to Dr Royal let me know documented in this [id number] Miscellaneous Notes* Telephone Encounter - Jaspreet Qureshi MA - 11/09/2021 11:43 AM EST Spoke to Cali (Pharmacist) for clarification of patient's prescription carbidopa-levodopa (SINEMET) 25-100 mg per tablet [facility] will disp 540 (90 day supply) will 3 refills Please sign script that was called in documented in this [id number] History of Present illness Narrative* Barb Morton [...] pt on at 1230pm. documented in this [id number] History of Present illness Narrative* Barb Morton MD - 11/05/2021 12:21 PM EST I called on 11/05/21 to discuss the results of the meeting and to discuss questions documented in this [id number] History of Present illness Narrative* Jim Bradford [...] tremor. Therefore, the patient was evaluated by ournyvement disorders neurologist, Dr. Barb Morton, as to [...] Dr Morton will call. documented in this [id number] History of Present illness Narrative* Jaspreet Qureshi MA - 11/03/2021 2:29 PM EST Images from the original note were not included. SDR - 0.34 with 973 available elements. Other than the low SDR no significant CT deviations noted. documented in this [id number] History of Present illness Narrative* Sarah Mckenzie, PT - 10/28/2021 11:00 AM EST Images from the original note were not included. [facility] Physical Therapy Evaluation [...] whether he wants to follow-up hereor in [place] as it is significantly closer to home. [...] medications for tremor - has tried one. [place] drunk all of th time. Freezing of [...] mobility Social Support: Patient lives with others. Mandaeism, social, or cultural considerations to be made [...] in the last 12 months: Yes (concussion) Mandaeism, social, or cultural considerations to be made [...] at this time were answered. CPT Code 55126 Low 42532 Moderate 39459 High History 0 1-2 3+ Comorbidities: chronic [...] time x Clinical Impression: . Luis Armando Ríos Jeannettejose miguel presents to [facility] outpatient neurological rehab services for PT assessment [...] above number. Sarah Mckenzie, PT STATE LICENSE, PT.[id number] documented in this [id number] Instructions* Patient Instructions* Barb Morton MD - 10/05/2021 11:[address] Head Physical therapy DATSCAN-the yes/no Parkinson's disease test Jim Bradford is the navigator Dr. Barb Morton MD Neurology Office Information Jaspreet Qureshi MA Office# documented in this [id number] History of Present illness Narrative* Barb Morton [...] whether he wants to follow-up hereor in [place] as it is significantly closer to home. [...] Office# Barb Morton MD documented in this [id number] History of Present illness Narrative* Roberto Carlos [...] Patient arrived to recovery monitor applied. Dr. Fartile at bedside order for EKG entered for hypotensive event. Patient responds to voice, nasal airway in place with simple mask at 10 LPM oxygen. mathematics technician called. * Mame Machado PA-C - [...] informed. Mame Machado PA-C documented in this [facility] Work Phone: [phone] 121-198106-16-2021 Hospital Discharge instructions* Instructions* Willis Casillas RN - 05/05/2021 Shower with the Hibiclens product given to you in Pre-Admission Testing. Follow the instructions and wear clean clothes to bed and clean linen on the bed the night before surgery. Follow the instructions and shower the morning of surgery and wear clean, comfortable clothes to the hospital. Please bring your bodaplanes Surgical Information folder on the day of surgery. Please genna the last dose taken (date and time [...] call your surgeon. You may use the bunch breaker machine operator parking located at the main entrance on [address] [facility] [address] [facility] and take the H elevator to the first floor for same day surgery. Take a left after exiting the elevator and check in at the desk. * Attachments The following attachments cannot be sent through Care Everywhere. * Laminotomy and Laminectomy: General Info (Libyan) documented in this encounterSUMMA Work Phone: Discharge summary Author Surya Dumont [facility] Note Date/Time April 09, 2025 12:55 pm [facility] Medical Records Department [address] [place] [address] Emergency Department Summary 04/09/25 MR#: [id number] Acct: [id number] Name: LUIS ARMANDO GRIFFITH Rep #:[id number] [...] blood thinners. Tetanus Immunization: <5 years PFSH [facility] Medical History Parkinson's disease Right bundle branch [...] change from the prior exam. Reading Location: [facility] Cervical Spine CT 04/09/25 11:34 IMPRESSION: 1. No acute fracture. 2. Degenerative changes of the cervical spine as described. Reading Location: [facility] Discharge Plan Triage Chief Complaint: Head Injury ED Provider: Surya Dumont Dx/Rx/DC Orders Clinical Impression: Fall, Laceration of scalp Instructions: ED Head Injury (Adult), ED Laceration Scalp Stitches or Winston Prescriptions: No Action pravastatin 80 mg tablet [...] wound, new or worsening symptoms. Print Language: Libyan Disposition Disposition: Home, Self Care What to do if you have Problems For any increased pain, shortness of breath, bleeding, nausea or vomiting, chestpain, or any unexpected problems, contact your Primary Care Provider. Call [facility] ([phone]) or report to the closest Emergency Room. Call 911 if necessary. 04/09/25 1255 <Electronically signed by Surya Dumont MD> Cosigner Signature (if applicable): CC: Dr. Ja Cooley MD ~ Signed [facility] Work Phone: Discharge summary Author Daphniekhushbu Narayanan [facility] Note Date/Time June 09, 2025 4:11 pm [facility] Medical Records Department [address] [place] [address] Instructions for Home/Discharge Instructions 06/09/25 1610 MR#: [id number] Acct: [id number] Name: LUIS ARMANDO GRIFFITH Rep #:[id number] [...] MD; Dr. Daphnie Narayanan MD ~ Signed [facility] Work Phone: Discharge summary Author Tex Whitney [facility] Note Date/Time August 22, 2025 9: 07am [facility] Medical Records Department [address] [place] [address] Emergency Department Summary 08/22/25 MR#: [id number] Acct: [id number] Name: LUIS ARMANDO GRIFFITH Rep #:[id number] : 1945 80 From: Tex an DO PCP: Dr. Ja Cooley MD Status:RE G ER Location: ED HPI HPI - Fall History of Present Illness Chief Complaint: Fall Narrative Narrative: Chief complaint and HPI: 80-year-old male with past medical history of Parkinson's disease, DM2, HTN, paroxysmal atrial fibrillation not on anticoagulation presents for evaluation after mechanical falls. Patient states he had 2 mechanical falls last night while getting out of his wheelchair. States that he often loses his balance when trying to move from his wheelchair to walking. He hit his head and face. No LOC. He has abrasions to the face. He denies any fever, chills, shortness of breath, chest pain abdominal pain, nausea, vomiting, dysuria, pain from the fall. Review of systems: See HPI Medications: As listed on the chart Allergies: As listed on the chart PFSH: Per chart Vital signs: As listed on the chart. Reviewed. Physical exam: Gen: A&Ox3, NAD Head: Normocephalic, atraumatic, no soriano signs Eyes: No sclera icterus, conjunctiva clear, PERRL-3mm, EOMI, no raccoon eyes ENT: TMs clear BL, moist mucous membranes, no swelling/lacerations/blood in the mouth or the nares, No nasal septal hematoma, mild facial tenderness over the 2 abrasions on his face-largest abrasion is located over the nose Neck: Trachea midline, No JVD, Nontender CV: RRR, no murmurs, no chest wall TTP Resp: Lungs CTA BL, no w/r/c GI: Abd soft, non-distended, non-tender, no r/r/g Musc: Moves all extremities, no deformity, no spinal TTP, no carlton step-offs, was able to ambulate from the cot to the bed without difficulty Skin: Warm, dry Neuro: Alert, oriented, grossly intact, sensation intact, GCS 15 Psych: Cooperative, appropriate mood and affect [facility] Medical History Hard of hearing [...] 10 mg PO DAILY urinary retention 04/12/23 Unkno wn History release 24 hr cholecalciferol (vitamin D3) [...] sons #720 06/29/25 Unknown Rx tablet tabs doxepin 25 mg capsule 25 mg PO QHS nerve pain #90 caps 07/11/25 Unknown Rx propranolol 60 mg capsule,24 60 mg PO QHS blood pressu re #90 07/11/25 Unknown Rx hr,extended release caps sertraline 50 mg tablet 100 mg (2 x 50 mg) PO QAM #6 0 tabs 07/17/25 Unknown Rx Allergy/AdvReac Type Severity Reaction Status Date / Time metoclopramide (From Reglan) Allergy Severe HYPER Verified 08/22/25 07:23 Family History Father Leukemia Surgical History History of total left knee replacement (TKR) History of left tennis elbow Hx of spinal fusion History of skin cancer Social History household members: spouse housing: residential Smoking Status: Former smoker alcohol intake: never substance use type: does not use EXAM Physical Exam Const Vital Signs: 08/22/25 07:20 08/22/25 07:25 Temperature 97.7 F L Temperature Source Oral Pulse Rate 90 Respiratory Rate 16 Respiratory Effort Normal Blood Pressure 137/84 H Blood Pressure Mean 101 Pulse Ox 97 Oxygen Delivery Method Room Air Room Air MDM MDM MDM Narrative Medical decision making narrative: 80-year-old male with past medical history of Parkinson's disease, DM2, HTN, paroxysmal atrial fibrillation not on anticoagulation presents for evaluation after mechanical falls. Patient states he had 2 mechanical falls last night while getting out of his wheelchair. States that he often loses his balance when trying to move from his wheelchair to walking. He hit his head and face. No LOC. He has abrasions to the face. Patient lives at an assisted living and per their protocol after 2 falls he needs to be evaluated in the emergency department. He states he has no complaints. Given that these were mechanical falls, I do not think any laboratory workup is needed. Patient states he is unsteady at baseline given his Parkinson's. Given patient hit his head and facewill obtain CT head, neck, face to assess for intracranial bleed, fractures, contusion. Abrasions will be cleaned with bacitracin. CT of the brain shows subacute to chronic subdural hematoma along the left dorsolateral convexity. Midline shift of 5.8 mm to the right. This was relayed to me personally by radiology. Cervical spine without any traumatic injury. CT of the face withoutany acute traumatic injury. Patient has a chronic fracture of the left posterior lateral orbital wall. Laboratory workup ordered. Patient will be be transferred to a trauma center. I did discuss this with the patient. He is in agreement. He states he has fallen multiple times this week. I did reach out to his who is his POA as well as his daughter Sabrina. Both of them were updated on their results and the plan. They confirmed understanding. CBC unremarkable without leukocytosis or anemia. Platelets unremarkable. Coagulation panel unremarkable. CMP relatively unremarkable. [facility] Wascontacted and patient was discussed with Dr. Davis. he accepted the patient asa trauma transfer. Patient will go via local squad. Impression: 1. Subacute to chronic subdural hematoma with midline shift of 5.8 mm to the right 2. Frequent falls 3. Facial abrasion 4. Chronic orbital fracture 5. History of Parkinson's Lab Data Labs: Laboratory Results - last 24 hr 08/22/25 08:12 WBC 8.5 RBC 4.70 Hgb 14.0 Hct 42.0 MCV 89.4 MCH 29.8 MCHC 33.3 RDW Std Deviation 43.7 RDW Coeff of Nori 13.2 Plt Count 254 MPV 10.0 Immature Gran % (Auto) 0.600 Neut % (Auto) 52.7 Lymph % (Auto) 32.1 [place] % (Auto) 11.7 H Eos % (Auto) 2.1 Baso % (Auto) 0.8 Absolute Neuts (auto) 4.5 Absolute Lymphs (auto) 2.72 Nucleated RBC % 0 PT 14.3 INR 1.1 APTT 27.2 Sodium 138 Potassium 4.1 Chloride 102 Carbon Dioxide 25.1 Anion Gap 11 BUN 23 H Creatinine 0.91 Estim Creat Clear Calc 78.16 Est GFR (MDRD) Non-Af 85 BUN/Creatinine Ratio 25.2 H Glucose 164 H Calcium 9.2 Total Bilirubin 0.77 AST 14 ALT < 5 Alkaline Phosphatase 87 Total Protein 6.5 Albumin 3.9 Globulin 2.6 Albumin/Globulin Ratio 1.5 Radiography Diagnostic Testing: Clinical Impression(s) from Imaging Studies Facial/Sinus 08/22/25 07:27 IMPRESSION: 1. No new acute fracture. Chronic fracture of the left posterolateral orbital wall is unchanged and uncomplicated. The findings and impression of this report were called to the ordering physician, Devonte at the time of the head CT. Reading Location: [facility] Brain CT 08/22/25 07:28 IMPRESSION: Subacute to chronic subdural hematoma along the left dorsal lateral convexity. Midline shift 5.8 mm to the right. [place] Alert: Extra-axial collection as above The critical findings in the findings and impression above were relayed directlyby me by telephone to Tex Whitney on 08/22/2025 at 8:05 am with readback verification. Reading Location: [facility] Cervical Spine CT 08/22/25 07:28 IMPRESSION: 1. Straightening of the normal cervical lordosis. Consider spasm. 2. Multilevel degenerative disc disease. No fracture. Reading Location: [facility] Discharge Plan Triage Chief Complaint: Fall ED Provider: Tex Whitney Dx/Rx/DC Orders Prescriptions: No Action pravastatin 80 mg tablet [...] 2 tab PO 4X/DAY Qty: 720 0RF insulin lispro [Humalog KwikPen Insulin] 100 unit/mL [...] 25 mg PO QHS Qty: 90 0RF sertraline 50 mg tablet 100 mg PO QAM Qty: 60 2RF Primary Care Provider: Ja Cooley Referrals: Ja Cooley MD [Primary Care Provider, Family Practice] Print Language: Libyan What to do if you have Problems For any increased pain, shortness of breath, bleeding, nausea or vomiting, chestpain, or any unexpected problems, contact your Primary Care Provider. Call [place] [facility] ([phone]) or report to the closest Emergency Room. Call 911 if necessary. 08/22/25 0907 <Electronically signed by Tex Whitney DO> Cosigner Signature (if applicable): CC: Dr. Ja Cooley MD ~ Signed [facility] Work Phone: Evaluation note* Diagnosis Pre-op testing- Primary Preoperative examination, unspecified Abnormal EKG Nonspecific abnormal electrocardiogram (ECG) (EKG) Shortness of breath documented in this encounter [facility] Work Phone: Evaluation note* Diagnosis Abnormal electrocardiogram (ECG) (EKG) Shortness of breath Pre-op testing Preoperative examination, unspecified Abnormal EKG Nonspecific abnormal electrocardiogram (ECG) (EKG) documented in this encounter [facility] Work Phone: Evaluation note* Diagnosis Tremor, essential- Primary Essential and other specified forms of tremor documented in this encounter [facility] note* Diagnosis Tremor- Primary Abnormal involuntary movements documented in this encounter [facility] note* Diagnosis Tremor Abnormal involuntary movements Impaired mobility and activities of daily living Impairment of balance documented in this encounter [facility] note* Diagnosis Parkinson's disease (HCC)- Primary Paralysis agitans documented in this encounter [facility] noteNo assessment information availableWCrystal Clinic Orthopedic [facility] Work Phone: Evaluation note* Diagnosis Parkinsonism, unspecified Parkinsonism type (HCC)- Primary Essential tremor Essential and other specified forms of tremor Dysphagia, unspecified type Gait instability Abnormality of gait documented in this encounter [facility] note* Diagnosis Parkinsonism, unspecified Parkinsonism type (HCC)- Primary Dysphagia, oropharyngeal phase Dysarthria documented in this encounter [facility] note* Diagnosis Parkinson disease (HCC)- Primary Paralysis agitans documented in this encounter [facility] note* Diagnosis Gait instability- Primary Abnormality of gait Parkinsonism, unspecified Parkinsonism type (HCC) Dysphasia Other speech disturbance Oropharyngeal dysphagia Dysphagia, oropharyngeal phase Decreased activities of daily living (ADL) documented in this encounter [facility] note* Diagnosis Onset Date Resolution Status Essential (primary) hypertension chronic Paroxysmal atrial fibrillation [facility] Work Phone: Evaluation note* Diagnosis Parkinsonism, unspecified Parkinsonism type (HCC)- Primary Depression, unspecified depression type Anxiety Anxiety state, unspecified Orthostatic lightheadedness Dizziness and giddiness Dysphagia, unspecified type documented in this encounter [facility] note* Diagnosis Parkinsonism, unspecified Parkinsonism type (HCC)- Primary Gait instability Abnormality of gait Leg weakness, bilateral Other musculoskeletal symptoms referable to limbs Imbalance Abnormality of gait documented in this encounter [facility] note* Diagnosis MELISSA (generalized anxiety disorder)- Primary Generalized anxiety disorder Depression, unspecified depression type Parkinsonism, unspecified Parkinsonism type (HCC) documented in this encounter [facility] note* Diagnosis Parkinsonism, unspecified Parkinsonism type (HCC)- Primary Gait instability Abnormality of gait Leg weakness, bilateral Other musculoskeletal symptoms referable to limbs Imbalance Abnormality of gait documented in this encounter [facility] note* Diagnosis Parkinsonism, unspecified Parkinsonism type (HCC)- Primary Orthostatic hypotension Anxiety Anxiety state, unspecified documented in this encounter [facility] note* Diagnosis Onset Date Resolution Status Parkinsons acute Essential (primary) hypertension chronic HLD (hyperlipidemia) chronic Paroxysmal atrial fibrillation [facility] Work Phone: Evaluation note* Diagnosis Onset Date Resolution Status Polyneuropathy acute Abnormality of gait and mobility chronic Dementia chronic Parkinson's disease chronic Essential (primary) hypertension chronic HLD (hyperlipidemia) chronic Paroxysmal atrial fibrillation [facility] Work Phone: Evaluation note* Diagnosis Onset Date Resolution Status Abnormality of gait and mobility chronic Dementia chronic Parkinson's disease chronic Polyneuropathy chronic Fatigue noneactive [facility] Work Phone: Evaluation note* Diagnosis Onset Date Resolution Status Diplopia acute Right abducens nerve palsy a cute Abnormality of gait and mobility chronic Dementia chronic Parkinson's disease chronic Polyneuropathy [facility] Work Phone: Evaluation note* Diagnosis Facial laceration, initial encounter- Primary Fall, initial encounter Open fracture of nasal bone, initial encounter [facility] instructions Additional Instructions Leave boot on [facility] [place] Work Phone: Hospital Discharge instructionsAdditional Instructions [id number] medications like Tylenol or ibuprofen as needed for pain. Have sutures removed in 5 days. Look for signs of infection including fever, increased redness to area, drainage of pus from wound. Return with new or worsening symptoms.[facility] Work Phone: Hospital Discharge instructionsAdditional Instructions Ice all sore areas. Tylenol for pain. Keep the wounds on his forehead and right knee clean. Clean daily with soap and water. Apply antibiotic ointment to prevent infection.[facility] Work Phone: Hospital Discharge instructionsAdditional Instructions Take your diabetic medications as previously directed. Tylenol or ibuprofen as needed for pain. Follow-up with your primary care provider. Return with new or worsening symptoms.[facility] Work Phone: Reason for referral (narrative)No reason for referral information availableWooKing's [facility] [place] Work Phone: Reason for Referral Status Reason Specialty Diagnoses / Procedures Re ferred By Contact Referred To Contact Open Cardiology Diagnoses Pre-op testing Abnormal EKG Shortness of breath Procedures ECHO Pharmacological Stress Test Raeann Holland, [place] MILL OPERATOR - YOUTH CAREER SPECIALIST [address] [facility] [address] [place] [address] Specialty Diagnoses / Procedures Referred By Contac t Referred To Contact Neurology Diagnoses Tremor, essential Juan M, Patricia Ramon MD [address] [facility] [address] [place] [address] Barb Morton MD [address] [facility] [address] [place] [address] Referral ID Status Reason Start Date Expiration Date V isits Requested Visits Authorized [id number] Pending Review 09/27/2021 09/27/2022 1 1 Specialty Diagnoses / Procedures Referred By Michel higginbotham Referred To Contact Rehabilitation Diagnoses Barb Montelongo MD [address] [facility] [address] [place] [address] Referral ID Status Reason Start Date Expiration Date V isits Requested Visits Authorized [id number] Authorized 10/05/2021 10/05/2022 1 1 Specialty Diagnoses / Procedures Referred By Contac t Referred To Contact Radiology Diagnoses Tremor Procedures CT Head Or Brain Without Contrast Barb Morton MD [address] [facility] [address] [place] [id number] Referral ID Status Reason Start Date Expiration Date V isits Requested Visits Authorized [id number] New Request 10/05/2021 10/05/2022 1 1 Specialty Diagnoses / Procedures Referred By Contac t Referred To Contact Radiology Diagnoses Tremor Procedures NM Brain Datscan SPECT CT Single Area Single Day Barb Morton MD [address] [facility] [address] [place] [address] Nuclear Medicine [address] [place] [phone] Referral ID Status Reason Start Date Expiration Date V isits Requested Visits Authorized [id number] Pending Review 10/05/2021 10/05/2022 4 4 Specialty Diagnoses / Procedures Referred By Contac t Referred To Contact Diagnoses Parkinsonism, unspecified Parkinsonism type (HCC) Procedures PROVIDER ORDERED FOLLOW UP OFFICE/OUTPATIENT [facility] 60-74 MINUTES Jaylyn Nieves MD [address] [address] Referral ID Status Reason Start Date Expiration Date Visits Requested Visits Authorized [id number] Authorized PCP Requested Referral 03/17/2022 06/15/2022 1 1 Specialty Diagnoses / Procedures Referred By Contac t Referred To Contact Neurology / NEUROLOGICAL JAINISM Diagnoses Parkinsonism, unspecified Parkinsonism type (HCC) Procedures CONSULT TO [facility] OFFICE/OUTPATIENT [facility] MDM 60-74 MINUTES Jaylyn Nieves MD [address] [phone] Referral ID Status Reason Start Date Expiration Date Visits Requested Visits Authorized [id number] Authorized PCP Requested Referral 03/17/2022 03/17/2023 1 1 Specialty Diagnoses / Procedures Referred By Contac t Referred To Contact [facility] Diagnoses Parkinsonism, unspecified Parkinsonism type (HCC) Gait instability Procedures CONSULT TO PHYSICAL THERAPY PHYSICAL THERAPY EVALUATION HIGH COMPLEX 45 MINS Jaylyn Nieves MD [address] [address] [facility] [address] [address] Referral ID Status Reason Start Date Expiration Date Visits Requested Visits Authorized [id number] Authorized PCP Requested Referral Auto-Generate d Referral 03/29/2022 03/29/2023 99 99 Specialty Diagnoses / Procedures Referred By Contac t Referred To Contact [facility] Diagnoses Parkinsonism, unspecified Parkinsonism type (HCC) Gait instability Decreased activities of daily living (ADL) Procedures CONSULT TO COMPUTER NETWORKER OCCUPATIONAL THERAPY EVAL HIGH COMPLEX 60 MINS Jaylyn Nieves MD [address] [place] [address] [address] Referral ID Status Reason Start Date Expiration Date Visits Requested Visits Authorized [id number] Authorized PCP Requested Referral Auto-Generate d Referral 03/29/2022 03/29/2023 99 99 Specialty Diagnoses / Procedures Referred By Contac t Referred To Contact Diagnoses Parkinsonism, unspecified Parkinsonism type (HCC) Oropharyngeal dysphagia Procedures CONSULT TO SPEECH THERAPY Jaylyn Nieves MD [address] [address] Referral ID Status Reason Start Date Expiration Date Visits Requested Visits Authorized [id number] Authorized PCP Requested Referral 03/29/2022 06/27/2022 3 3 Referral ID Status Reason Start Date Expiration Date Visits Requested Visits Authorized [id number] Authorized PCP Requested Referral 08/04/2023 1 1 Specialty Diagnoses / Procedures Referred By Contac t Referred To Contact [facility] Diagnoses Parkinsonism, unspecified Parkinsonism type (HCC) Procedures CONSULT TO PHYSICAL THERAPY PHYSICAL THERAPY EVALUATION HIGH COMPLEX 45 MINS Jaylyn Nieves MD [address] [address] [facility] [address] [place] [address] Referral ID Status Reason Start Date Expiration Date Visits Requested Visits Authorized [id number] Authorized PCP Requested Referral Auto-Generate d Referral 08/04/2022 08/04/2023 99 99 Specialty Diagnoses / Procedures Referred By Contac t Referred To Contact Diagnoses Parkinsonism, unspecified Parkinsonism type (HCC) Depression, unspecified depression type Procedures CONSULT TO PSYCHIATRY OFFICE/OUTPATIENT [facility] 60-74 MINUTES Jaylyn Nieves MD [address] [address] Referral ID Status Reason Start Date Expiration Date Visits Requested Visits Authorized [id number] Pending Review PCP Requested Referral 08/04/2022 08/04/2023 1 1 Specialty Diagnoses / Procedures Referred By Contac t Referred To Contact Diagnoses Depression, unspecified depression type Procedures PROVIDER ORDERED FOLLOW UP OFFICE/OUTPATIENT [facility] 60-[place] [address] [place] [address] Referral ID Status Reason Start Date Expiration Date Visits Requested Visits Authorized [id number] Authorized PCP Requested Referral 11/28/2022 09/02/2023 1 1 Specialty Diagnoses / Procedures Referred By Contac t Referred To Contact [facility] Diagnoses Parkinsonism, unspecified Parkinsonism type (HCC) Procedures CONSULT TO COMPUTER NETWORKER OCCUPATIONAL THERAPY EVAL HIGH COMPLEX 60 MINS Gary Ruiz, ALEN.YOUTH CAREER SPECIALIST [address] [place] [address] [facility] [place] [place] [address] Referral ID Status Reason Start Date Expiration Date Visits Requested Visits Authorized [id number] Authorized PCP Requested Referral Auto-Generate d Referral 12/12/2022 12/12/2023 99 99 Specialty Diagnoses / Procedures Referred By Contac t Referred To Contact [facility] Diagnoses Parkinsonism, unspecified Parkinsonism type (HCC) Procedures CONSULT TO PHYSICAL THERAPY PHYSICAL THERAPY EVALUATION HIGH COMPLEX 45 MINS Gary Ruiz APRN.YOUTH CAREER SPECIALIST [address] [place] [address] [facility] [place] [address] [place] [address] Referral ID Status Reason Start Date Expiration Date Visits Requested Visits Authorized [id number] Authorized PCP Requested Referral Auto-Generate d Referral 12/12/2022 12/12/2023 99 99 Advance Directives No Advanced Directives Records FoundDocuments on File Type Date Recorded 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 ACP-Advance Directive ACP-Power of Material Hauler Latest Code Status on File Code Status Date Activated Date Inactivated Comments Full Code 04/17/2018 6:13 AM 04/17/2018 1:26 PM Documents on File Type Date Recorded 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 ACP-Advance Directive ACP-Power of Material Hauler Latest Code Status on File Code Status Date Activated Date Inactivated Comments Full Code 05/19/2021 6:48 AM Full Code 04/17/2018 6:13 AM 04/17/2018 1:26 PM Documents on File Type Date Recorded 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 Advance Directives and Living Will Documents on File Type Date Recorded 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 Advance Directives and Living Will Documents on File Type Date Recorded 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 Advance Directives and Livin g Will 11/01/2021 10:44 AM Advance Directive Response Recorded Date/ Time Living Will Yes January 28, 2022 2:22am Power of Material Hauler Yes January 28 2:22am Advance Directive Response Recorded Date/ Time Name of Medical Power of Material Hauler BRENNEN GRIFFITH ( ) January 28, 2022 2:22am Living Will Yes January 28, 2022 2:22am Power of Material Hauler Yes January 28 2:22am Advance Directive Response Recorded Date/ Time Living Will Yes January 28, 2022 1:22am Power of Material Hauler Yes January 28 1:22am Advance Directive Response Recorded Date/ Time Name of Medical Power of Material Hauler February 11, 2023 12:56pm Living Will Yes February 11, 2023 12:56pm Power of Material Hauler Yes February 11 12:56pm Advance Directive Response Recorded Date/ Time Living Will Yes February 11, 2023 12:56pm Power of Material Hauler Yes February 11 12:56pm Advance Directive Response Recorded Date/ Time Living Will Yes February 11, 2023 11:56am Power of Material Hauler Yes February 11 11:56am Advance Directive Response Recorded Date/ Time Living Will Yes February 11, 2023 12:56pm Power of Material Hauler Yes February 11 12:56pm Living Will Yes October 12 12:40pm Power of Material Hauler Yes October 12, 2024 12:40pm Name of Medical Power of Material Hauler brennen griffith October 12, 2024 12:40pm Living Will Yes December 05 6:16pm Power of Material Hauler Yes December 05, 2024 6:16pm Name of Medical Power of Material Hauler BRENNEN GRIFFITH December 05, 2024 6:16pm Advance Directive Response Recorded Date/ Time Living Will Yes February 11, 2023 12:56pm Do you have a Healthcare Power of Material Hauler? Yes February 11, 2023 12:56pm Living Will Yes December 05 6:16pm Do you have a Healthcare Power of Material Hauler? Yes December 05, 2024 6:16pm Name of Medical Power of Material Hauler BRENNEN GRIFFITH December 05, 2024 6:16pm Living Will No February 14, 2025 9:21pm Do you have a Healthcare Power of Material Hauler? No February 14, 2025 9:21pm Advance Directive Response Recorded Date/ Time Living Will Yes February 11, 2023 12:56pm Do you have a Healthcare Power of Material Hauler? Yes February 11, 2023 12:56pm Living Will No February 14, 2025 9:21pm Do you have a Healthcare Power of Material Hauler? No February 14, 2025 9:21pm Advance Directive Response Recorded Date/ Time Living Will Yes February 11, 2023 12:56pm Do you have a Healthcare Power of Material Hauler? Yes February 11, 2023 12:56pm Living Will No February 14, 2025 9:21pm Do you have a Healthcare Power of Material Hauler? No February 14, 2025 9:21pm Do you have a Healthcare Power of Material Hauler? Yes April 09, 2025 11:28am Healthcare Agents on File Name Relationship Healthcare Agent Relationshi p Communication Brennen Griffith Spouse First Alternate Health Care Agent Advance Directive Response Recorded Date/ Time Living Will No February 14, 2025 9:21pm Do you have a Healthcare Power of Material Hauler? No February 14, 2025 9:21pm Do you have a Healthcare Power of Material Hauler? Yes April 09, 2025 11:28am Do you have a Healthcare Power of Material Hauler? No May 11, 2025 5:51pm Advance Directive Response Recorded Date/ Time Living Will No February 14, 2025 9:21pm Do you have a Healthcare Power of Material Hauler? No February 14, 2025 9:21pm Do you have a Healthcare Power of Material Hauler? Yes April 09, 2025 11:28am Do you have a Healthcare Power of Material Hauler? No May 11, 2025 5:51pm Do you have a Healthcare Power of Material Hauler? Yes June 08, 2025 6:06pm Advance Directive Response Recorded Date/ Time Living Will No February 14, 2025 9:21pm Do you have a Healthcare Power of Material Hauler? No February 14, 2025 9:21pm Do you have a Healthcare Power of Material Hauler? Yes April 09, 2025 11:28am Do you have a Healthcare Power of Material Hauler? No May 11, 2025 5:51pm Do you have a Healthcare Power of Material Hauler? Yes June 08, 2025 11:41pm Advance Directive Response Recorded Date/ Time Living Will No February 14, 2025 9:21pm Do you have a Healthcare Power of Material Hauler? No February 14, 2025 9:21pm Do you have a Healthcare Power of Material Hauler? Yes April 09, 2025 11:28am Do you have a Healthcare Power of Material Hauler? No May 11, 2025 5:51pm Do you have a Healthcare Power of Material Hauler? No June 12, 2025 10:49am Do you have a Healthcare Power of Material Hauler? Yes June 08, 2025 11:41pm Advance Directive Response Recorded Date/ Time Do you have a Healthcare Power of Material Hauler? Yes April 09, 2025 11:28am Do you have a Healthcare Power of Material Hauler? No May 11, 2025 5:51pm Do you have a Healthcare Power of Material Hauler? No June 12, 2025 10:49am Do you have a Healthcare Power of Material Hauler? Yes June 19, 2025 7:26pm Name of Medical Power of Material Hauler Brennen Griffith June 19, 2025 7:26pm Do you have a Healthcare Power of Material Hauler? Yes June 08, 2025 11:41pm Advance Directive Response Recorded Date/ Time Living Will Yes February 11, 2023 12:56pm Do you have a Healthcare Power of Material Hauler? Yes February 11, 2023 12:56pm Do you have a Healthcare Power of Material Hauler? Yes April 09, 2025 11:28am Do you have a Healthcare Power of Material Hauler? No May 11, 2025 5:51pm Do you have a Healthcare Power of Material Hauler? No June 12, 2025 10:49am Do you have a Healthcare Power of Material Hauler? Yes June 19, 2025 7:26pm Name of Medical Power of Material Hauler Brennen Griffith June 19, 2025 7:26pm Do you have a Healthcare Power of Material Hauler? Yes June 08, 2025 11:41pm Advance Directive Response Recorded Date/ Time Living Will Yes February 11, 2023 12:56pm Do you have a Healthcare Pow er of Material Hauler? Yes February 11, 2023 12:56pm Do you have a Healthcare Pow er of Material Hauler? Yes April 09, 2025 11:28am Do you have a Healthcare Pow er of Material Hauler? No May 11, 2025 5:51pm Do you have a Healthcare Pow er of Material Hauler? No June 12, 2025 10:49am Do you have a Healthcare Pow er of Material Hauler? Yes June 19, 2025 7:26pm Name of Medical Power of Material Hauler Brennen Griffith June 19, 2025 7:26pm Do you have a Healthcare Pow er of Material Hauler? Yes June 08, 2025 11:41pm Do you have a Healthcare Pow er of Material Hauler? Yes July 07, 2025 4:05am Name of Medical Power of Material Hauler sabrina valenzuela daughter July 07, 2025 4:05am Advance Directive Response Recorded Date/ Time Living Will Yes February 11, 2023 12:56pm Do you have a Healthcare Pow er of Material Hauler? Yes February 11, 2023 12:56pm Do you have a Healthcare Pow er of Material Hauler? Yes April 09, 2025 11:28am Do you have a Healthcare Pow er of Material Hauler? No May 11, 2025 5:51pm Do you have a Healthcare Pow er of Material Hauler? No June 12, 2025 10:49am Do you have a Healthcare Pow er of Material Hauler? Yes June 19, 2025 7:26pm Name of Medical Power of Material Hauler Brennen Griffith June 19, 2025 7:26pm Do you have a Healthcare Pow er of Material Hauler? Yes June 08, 2025 11:41pm Do you have a Healthcare Pow er of Material Hauler? Yes July 07, 2025 4:05am Name of Medical Power of Material Hauler sabrina valenzuela daughter July 07, 2025 4:05am Do you have a Healthcare Pow er of Material Hauler? No July 12, 2025 6:07pm Advance Directive Response Recorded Date/ Time Living Will Yes February 11, 2023 12:56pm Do you have a Healthcare Pow er of Material Hauler? Yes February 11, 2023 12:56pm Do you have a Healthcare Pow er of Material Hauler? No May 11, 2025 5:51pm Do you have a Healthcare Pow er of Material Hauler? No June 12, 2025 10:49am Do you have a Healthcare Pow er of Material Hauler? Yes June 19, 2025 7:26pm Name of Medical Power of Material Hauler Brennen Griffith June 19, 2025 7:26pm Do you have a Healthcare Pow er of Material Hauler? Yes August 22, 2025 7:23am Name of Medical Power of Material Hauler /DAUGHTER August 22, 2025 7:23am Do you have a Healthcare Pow er of Material Hauler? Yes June 08, 2025 11:41pm Do you have a Healthcare Pow er of Material Hauler? Yes July 07, 2025 4:05am Name of Medical Power of Material Hauler sabrina valenzuela daughter July 07, 2025 4:05am Do you have a Healthcare Pow er of Material Hauler? No [place] 23rd, 2025 6:07pm Summary Purpose Family History No [...] 4 M FU 2 ORDERING ERNESTINA - LISSET FROM DR SANTO Reason for Visit Diplopia [...] 2024 1 0:37am Chief Complaint Admit Date fallDecember 05, 2024 [...] 2025 1:0 0pm Chief Complaint Admit Date fallDecember 05, 2024 [...] head injury July 12, 2025 6: 02pm Chief Complaint Admit Date DYSPHAGIA, PARKINSONS DISEASE,Dysphonia May 09, 2025 12:48pm [...] head injury July 12, 2025 6: 02pm fall August 22, 2025 7: 18am Reason for Visit Admit Date Acute sinusitis June 08, 2025 9:40 pm [...] or prosecute any alcohol or drug abuse patient.[facility] the event this information is protected by the Federal Confidentiality of Alcohol and Drug Abuse Patient Records regulations: The Federal rules restrict any use of the information to criminally investigate or prosecute any alcohol or drug abuse patient.[facility] the event this information is protected by the Federal Confidentiality of Alcohol and Drug Abuse Patient Records regulations: The Federal rules restrict any use of the information to criminally investigate or prosecute any alcohol or drug abuse patient.[facility] the event this information is protected by the Federal Confidentiality of Alcohol and Drug Abuse Patient Records regulations: The Federal rules restrict any use of the information to criminally investigate or prosecute any alcohol or drug abuse patient.[facility] the event this information is protected by the Federal Confidentiality of Alcohol and Drug Abuse Patient Records regulations: The Federal rules restrict any use of the information to criminally investigate or prosecute any alcohol or drug abuse patient.[facility] the event this information is protected by the Federal Confidentiality of Alcohol and Drug Abuse Patient Records regulations: The Federal rules restrict any use of the information to criminally investigate or prosecute any alcohol or drug abuse patient.[facility] the event this information is protected by the Federal Confidentiality of Alcohol and Drug Abuse Patient Records regulations: The Federal rules restrict any use of the information to criminally investigate or prosecute any alcohol or drug abuse patient.[facility] the event this information is protected by the Federal Confidentiality of Alcohol and Drug Abuse Patient Records regulations: The Federal rules restrict any use of the information to criminally investigate or prosecute any alcohol or drug abuse patient.[facility] the event this information is protected by the Federal Confidentiality of Alcohol and Drug Abuse Patient Records regulations: The Federal rules restrict any use of the information to criminally investigate or prosecute any alcohol or drug abuse patient.[facility] the event this information is protected by the Federal Confidentiality of Alcohol and Drug Abuse Patient Records regulations: The Federal rules restrict any use of the information to criminally investigate or prosecute any alcohol or drug abuse patient.[facility] the event this information is protected by the Federal Confidentiality of Alcohol and Drug Abuse Patient Records regulations: The Federal rules restrict any use of the information to criminally investigate or prosecute any alcohol or drug abuse patient.[facility] Hospital[facility] the event this information is protected by the Federal Confidentiality of Alcohol and Drug Abuse Patient Records regulations: The Federal rules restrict any use of the information to criminally investigate or prosecute any alcohol or drug abuse patient.[facility] HospitalIn the event this information is protected by the Federal Confidentiality of Alcohol and Drug Abuse Patient Records regulations: The Federal rules restrict any use of the information to criminally investigate or prosecute any alcohol or drug abuse patient.[facility] HospitalIn the event this information is protected by the Federal Confidentiality of Alcohol and Drug Abuse Patient Records regulations: The Federal rules restrict any use of the information to criminally investigate or prosecute any alcohol or drug abuse patient.[facility] HospitalIn the event this information is protected by the Federal Confidentiality of Alcohol and Drug Abuse Patient Records regulations: The Federal rules restrict any use of the information to criminally investigate or prosecute any alcohol or drug abuse patient.[facility] HospitalIn the event this information is protected by the Federal Confidentiality of Alcohol and Drug Abuse Patient Records regulations: The Federal rules restrict any use of the information to criminally investigate or prosecute any alcohol or drug abuse patient.[facility] HospitalIn the event this information is protected by the Federal Confidentiality of Alcohol and Drug Abuse Patient Records regulations: The Federal rules restrict any use of the information to criminally investigate or prosecute any alcohol or drug abuse patient.[facility] HospitalIn the event this information is protected by the Federal Confidentiality of Alcohol and Drug Abuse Patient Records regulations: The Federal rules restrict any use of the information to criminally investigate or prosecute any alcohol or drug abuse patient.[facility] HospitalIn the event this information is protected by the Federal Confidentiality of Alcohol and Drug Abuse Patient Records regulations: The Federal rules restrict any use of the information to criminally investigate or prosecute any alcohol or drug abuse patient.[facility] HospitalIn the event this information is protected by the Federal Confidentiality of Alcohol and Drug Abuse Patient Records regulations: The Federal rules restrict any use of the information to criminally investigate or prosecute any alcohol or drug abuse patient.[facility] Reason for Visit (unrecogniz ed section and content) Reason Comments Parkinsonism, unspecified Parkinsonism t ype (HCC) Specialty Diagnoses / Procedures Referred By Michel t Referred To Contact Diagnoses Parkinsonism, unspecified Parkinsonism type (HCC) Procedures PROVIDER ORDERED FOLLOW UP OFFICE/OUTPATIENT [facility] 60-74 MINUTES Jaylyn Nieves MD [address] [address] Referral ID Status Reason Start Date Expiration Date V isits Requested Visits Authorized [id number] Closed PCP Requested Referral 11/03/2022 08/04/2023 1 1 Status Reason Specialty Diagnoses / Procedures Re ferred By Contact Referred To Contact Open Cardiology Diagnoses Pre-op testing Abnormal EKG Shortness of breath Procedures ECHO Pharmacological Stress Test Raeann Holland, [employer] M[employer] OPERATOR - YOUTH CAREER SPECIALIST 1 [facility] [address] [place] [address] Reason Comments Consult Ref by: PATRICIA MCGOWAN 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,essential (HIFU interest - saw us on the website), Tremors Dx; ET approx 1 year Specialty Diagnoses / Procedures Referred By Michel higginbotham Referred To Contact Neurology Diagnoses Tremor, essential Patricia Mcgowan MD [address] [place] [address] Barb Morton MD [address] [facility] [address] [place] [address] Referral ID Status Reason Start Date Expiration Date Visits Re quested Visits Authorized [id number] Closed 09/27/2021 09/27/2022 1 1 Reason Comments Physical Therapy Neuro Specialty Diagnoses / Procedures Referred By Contac t Referred To Contact Rehabilitation Diagnoses Barb Montelongo MD [address] [facility] [address] [place] [address] [facility] [address] [place] [address] Referral ID Status Reason Start Date Expiration Date V isits Requested Visits Authorized [id number] Authorized 10/05/2021 10/05/2022 1 199 Reason Onset Date Comments Medication Refill 11/05/2021 Reason Onset Date Comments Medication Refill 11/09/2021 Reason Comments Follow Up Parkinson's Reason Comments Upcoming Appointment Pre-rooming phone c all Reason Comments Speech Evaluation Specialty Diagnoses / Procedures Referred By Contac t Referred To Contact Speech-Language Pathologist / SPEECH THERAPY Diagnoses PD Clinic Procedures [facility] Jaylyn Nieves MD [address] [address] Amaya Deleon, [facility] CRACK OFF [address] [place] [address] Referral ID Status Reason Start Date Expiration Date V isits Requested Visits Authorized [id number] Authorized 03/29/2022 06/27/2022 99 99 Reason Comments PT Eval Patient Education Specialty Diagnoses / Procedures Referred By Contac t Referred To Contact Physical Therapy / PHYSICAL THERAPY Diagnoses PD Clinic Procedures [facility] Jaylyn Nieves MD [address] [address] [place], [place], DPT [address] [place] [address] Referral ID Status Reason Start Date Expiration Date V isits Requested Visits Authorized [id number] Authorized 03/29/2022 06/27/2022 99 99 Specialty Diagnoses / Procedures Referred By Contac t Referred To Contact Neurology / NEUROLOGICAL JAINISM Diagnoses Parkinsonism, unspecified Parkinsonism type (HCC) Procedures CONSULT TO [facility] OFFICE/OUTPATIENT [facility] 60-74 MINUTES Jaylyn Nieves MD [address] [address] [facility] [address] [place] [address] Referral ID Status Reason Start Date Expiration Date V isits Requested Visits Authorized [id number] Closed PCP Requested Referral 03/17/2022 03/17/2023 1 1 Reason Onset Date Comments Refill Request 05/18/2022 Reason Comments Appointment Earlier appointment request d/t worsening symptoms Reason Comments Follow Up Referral ID Status Reason Start Date Expiration Date V isits Requested Visits Authorized [id number] Closed PCP Requested Referral 03/17/2022 06/15/2022 1 1 Reason Comments Physical Therapy Specialty Diagnoses / Procedures Referred By Contac t Referred To Contact [facility] Diagnoses Parkinsonism, unspecified Parkinsonism type (HCC) Procedures CONSULT TO PHYSICAL THERAPY PHYSICAL THERAPY EVALUATION HIGH COMPLEX 45 MINS Jaylyn Nieves MD [address] [address] [facility] [address] [address] Referral ID Status Reason Start Date Expiration Date Visits Requested Visits Authorized [id number] Authorized PCP Requested Referral Auto-Generate d Referral 08/04/2022 08/04/2023 99 99 Reason Comments New Patient Specialty Diagnoses / Procedures Referred By Contac t Referred To Contact Diagnoses Parkinsonism, unspecified Parkinsonism type (HCC) Depression, unspecified depression type Procedures CONSULT TO PSYCHIATRY OFFICE/OUTPATIENT [facility] 60-74 MINUTES Jaylyn Nieves MD [address] [address] Referral ID Status Reason Start Date Expiration Date Visits Requested Visits Authorized [id number] Pending Review PCP Requested Referral 08/04/2022 08/04/2023 [...] section and content) DATE CREATED AUTHOR 05/13/2021 [facility] DATE CREATED AUTHOR AUTHOR'S ORGANIZ ATION 05/20/2021 [facility] DATE CREATED AUTHOR AUTHOR'S ORGANIZ ATION 12/22/2021 [facility] DATE CREATED AUTHOR AUTHOR'S ORGANIZ ATION 02/18/2023 [facility] DATE CREATED AUTHOR AUTHOR'S ORGANIZ ATION 02/19/2023 [facility] DATE CREATED AUTHOR AUTHOR'S ORGANIZ ATION 04/05/2025 [facility] DATE CREATED AUTHOR AUTHOR'S ORGANIZ ATION 04/18/2025 [facility] DATE CREATED AUTHOR AUTHOR'S ORGANIZ ATION 09/24/2025 [facility] DATE CREATED AUTHOR AUTHOR'S ORGANIZ ATION 09/27/2025 [facility] Scheduled Active and Recently Administ ered Medications [...] % 100 mL IVPB 3,000 mg, Intravenous, HEALTH CARE LAW SPECIALIST TO O.R., 1 dose, On Mon05/19/21 at [...] on Mon05/19/21 at 0715, For 1 dose, KEVER, KUN: cabinet override 0730 (Due) thrombin 5000 units kit Starting on Mon05/19/21 at 0715, For 1 dose, JAYCOBDARIAKUN: cabinet override 07 (Due) Linked Groups Order Group 1: oxyCODONE [...] Cielo Valverde RN) lidocaine-EPINEPHrine (Xylocaine W/EPI) 1 %-1:278609 injection 10 mL (COMPLETED) 10 mL, Infiltration, Once, On 04/13/25 at 2100, For 1 dose 222 (Given by Other - Provider: Cielo Valverde [...] Care Teams (unrecognized sec tion and content) 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 Specialty Start Date End Date Patricia Mcgowan MD [address] [address] PCP - General Family Medicine 10/28/21 Coal 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 Specialty Start Date End Date Patricia Mcgowan MD [address] [place] [address] PCP - General Family Medicine 10/28/21 Coal 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 Specialty Start Date End Date Patricia Mcgowan MD [address] [place] [address] PCP - General Family Medicine 10/28/21 Coal 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 Specialty Start Date End Date Patricia Mcgowan MD [address] [place] [address] PCP - General Family Medicine 10/28/21 Coal 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 Specialty Start Date End Date Patricia Mcgowan MD [address] [place] [address] PCP - General Family Medicine 10/28/21 Coal 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 Specialty Start Date End Date Patricia Mcgowan MD [address] [place] [address] PCP - General Family Medicine 10/28/21 Coal 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 Specialty Start Date End Date Patricia Mcgowan MD [address] [place] [address] PCP - General Family Medicine 10/28/21 Coal 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 Specialty Start Date End Date Ja Cooley [address] [place] [address] PCP - General Family Practice 03/17/22 Coal 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 Specialty Start Date End Date Ja Cooley [address] [place] [address] PCP - General Family Practice 03/17/22 Coal 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 Specialty Start Date End Date Ja Cooley [address] [place] [address] PCP - General Family Practice 03/17/22 Coal 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 Specialty Start Date End Date Ja Cooley [address] [place] [address] PCP - General Family Practice 03/17/22 Coal 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 Specialty Start Date End Date Ja Cooley [address] [place] [address] PCP - General Family Practice 03/17/22 Coal 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 Specialty Start Date End Date Ja Cooley [address] [facility] [address] [place] [address] PCP - General Family Practice 03/17/22 Coal 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 Specialty Start Date End Date Ja Cooley [address] [facility] [address] [place] [address] PCP - General Family Practice 03/17/22 Coal 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 Specialty Start Date End Date Ja Cooley [address] [facility] [address] [place] [address] PCP - General Family Practice 03/17/22 Coal 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 Specialty Start Date End Date Ja Cooley [address] [place] [address] PCP - General Family Practice 03/17/22 Coal 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 Specialty Start Date End Date Ja Cooley [address] [place] [address] PCP - General Family Medicine 03/17/22 Coal 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 Specialty Start Date End Date Ja Cooley [address] [place] [address] PCP - General Family Medicine 03/17/22 Coal 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 Specialty Start Date End Date Rejipriti Ja Ravindererma [address] [facility] [address] [place] [address] PCP - General Family Medicine 03/17/22 Erika May, [employer] MILL OPERATOR.YOUTH CAREER SPECIALIST [address] [place] [address] Specialty Child Care Attendant School Neurology 09/07/22 Coal 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 Specialty Start Date End Date Ja Cooley [address] [facility] [address] [place] [address] PCP - General Family Medicine 03/17/22 Erika May, [employer] M[employer] OPERATOR.YOUTH CAREER SPECIALIST [address] [facility] [address] Specialty Child Care Attendant School Neurology 09/07/22 Coal 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 Specialty Start Date End Date Rejipriti Ja Ravindererma [address] [facility] [address] [place] [address] PCP - General Family Medicine 03/17/22 Erika May, [employer] MILL OPERATOR.YOUTH CAREER SPECIALIST [address] [facility] [address] Specialty Child Care Attendant School Neurology 09/07/22 Coal 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 Specialty Start Date End Date Rejipriti Ja Bijan [address] [facility] [address] [place] [address] PCP - General Family Medicine 03/17/22 Erika May, [employer] M[employer] OPERATOR.YOUTH CAREER SPECIALIST [address] [place] [address] Specialty Child Care Attendant School Neurology 09/07/22 Tatiana Rodas, [employer] M[employer] OPERATOR.YOUTH CAREER SPECIALIST [address] [place] [address] Specialty Child Care Attendant School Neurology 12/05/22 Coal 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 Specialty Start Date End Date RejiJa marcos Ravindererma [address] [facility] [address] [place] [address] PCP - General Family Medicine 03/17/22 Erika May, [employer] MILL OPERATOR.YOUTH CAREER SPECIALIST [address] [place] [address] Specialty Child Care Attendant School Neurology 09/07/22 Tatiana Rodas, [employer] MILL OPERATOR.YOUTH CAREER SPECIALIST [address] [place] [address] Specialty Child Care Attendant School Neurology 12/05/22 Coal 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 Specialty Start Date End Date Rejipriti Ja Ramírez [address] [facility] [address] [place] [address] PCP - General Family Medicine 03/17/22 Erika May, [employer] MILL OPERATOR.YOUTH CAREER SPECIALIST [address] [place] [address] Specialty Child Care Attendant School Neurology 09/07/22 Tatiana Rodas, [employer] M[employer] OPERATOR.YOUTH CAREER SPECIALIST [address] [place] [address] Specialty Child Care Attendant School Neurology 12/05/22 Team Status: Active Member Role Status Dates Dr. Patricia Mcgowan MD Family Provider Active Dr. Ja Cooley MD Primary Care Provider Active Team Status: Inactive Member Role Status Dates Dr. Ja Cooley MD Primary Care Provider Active Dr. Natasha Gregory MD Attending Provider, Referring Provider Active Dr. Davey Johnson MD Other Provider Active Team Status: Inactive Member Role Status Dates Dr. Ja Cooley MD Primary Care Provider, Referr ing Provider Active Dr. Natasha Gregory MD Attending Provider Active Coal 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 Specialty Start Date End Date Ja Cooley [address] [facility] [address] [place] [address] PCP - General Family Medicine 03/17/22 Erika May, [employer] M[employer] OPERATOR.YOUTH CAREER SPECIALIST [address] [place] [address] Specialty Child Care Attendant School Neurology 09/07/22 Tatiana Rodas, [employer] MILL OPERATOR.YOUTH CAREER SPECIALIST [address] [place] [address] Specialty Child Care Attendant School Neurology 12/05/22 Team Status: Inactive Member Role Status Dates Dr. Ja Cooley MD Primary Care Provider Active Dr. Osman Farooq MD Emergency Provider Active Coal 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 Specialty Start Date End Date Ja Cooley [address] [address] PCP - General Family Medicine 03/17/22 Erika May, [employer] M[employer] OPERATOR.YOUTH CAREER SPECIALIST [address] [place] [address] Specialty Child Care Attendant School Neurology 09/07/22 Tatiana Rodas, [employer] M[employer] OPERATOR.YOUTH CAREER SPECIALIST [address] [place] [address] Specialty Child Care Attendant School Neurology 12/05/22 Team Status: Inactive Member Role [...] Provider, Referr ing Provider Active Christel Bae METROLOGY TECHNICIAN, METROLOGY TECHNICIAN-C Attending Provider Active Team Status: Inactive Member [...] 2025 End: February 06, 2025 Dr. Vick Satno MD Attending Provider Active Start: February 06, [...] April 09, 2025 End: April 09, 2025 Coal 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 Specialty Start Date End Date Ja Cooley MD [address]ie Masters [address] [place] [address] PCP - General Family Medicine 04/13/25 Team [...] 2025 End: June 27, 2025 Christel Bae METROLOGY TECHNICIAN, METROLOGY TECHNICIAN-C Attending Provider Active Start: June 27, 2025 [...] 03, 2025 End: April 03, 2025 Dr. aJ Cooley MD Attending Provider Active Start: April [...] 2025 End: June 09, 2025 Dr. Joe Soot DO Emergency Provider Active S tart: June [...] Active Member Role/Relationship Status Dates Dr. Ja oColey MD Primary Care Provider Active Start: June [...] 2025 End: June 27, 2025 Christel Bae METROLOGY TECHNICIAN, METROLOGY TECHNICIAN-C Attending Provider Active Start: June 27, 2025 [...] 12, 2025 End: July 12, 2025 Surya Dmuont MD Emergency Provider Active Star t: July 12, 2025 End: July 12, 2025 Team Status: Active Member Role/Relationship Status Dates Dr. Ja Cooley MD Primary care physician Active Team Status: Inactive Member Role/Relationship Status Dates Dr. Ja Cooley MD Primary care physician Active Start: May 09, 2025 End: May 09, 2025 Dr. Vick Santo MD Attending physician Active Start: May 09, 2025 End: May 09, 2025 Dr. Vick Santo MD Referring Provider Active Start: May 09, 2025 End: May 09, 2025 Team Status: Inactive Member Role/Relationship Status Dates Dr. Ja Cooley MD Primary care physician Active Start: May 11, 2025 End: May 11, 2025 Dr. Dano Minor MD Attending physician Active St art: May 11, 2025 End: May 11, 2025 Dr. Dano Minor MD Emergency Department Physician Acti ve Start: May 11, 2025 End: May 11, 2025 Team Status: Inactive Member Role/Relationship Status Dates Dr. Ja Cooley MD Primary care physician Active Start: May 14, 2025 End: May 14, 2025 Dr. Vick Santo MD Attending physician Active Start: May 14, 2025 End: May 14, 2025 Dr. Vick Santo MD Referring Provider Active Start: May 14, 2025 End: May 14, 2025 Team Status: Inactive Member Role/Relationship Status Dates Dr. Ja Cooley MD Primary care physician Active Start: May 26, 2025 End: May 26, 2025 Dr. Natasha Gregory MD Attending physician Active Start: May 26, 2025 End: May 26, 2025 Dr. Natasha Gregory MD Referring Provider Active Start: May 26, 2025 End: May 26, 2025 Team Status: Inactive Member Role/Relationship Status Dates Dr. Ja Cooley MD Primary care physician Active Start: June 08, 2025 End: June 09, 2025 Dr. Joe Soto DO Emergency Department Physician Ac tive Start: June 08, 2025 End: June 09, 2025 Dr. Geo Garza DO Admitting physician Active Start: June 08, 2025 End: June 09, 2025 Dr. Geo Garza DO Nurse Practitioner Active Start: June 08, 2025 End: June 09, 2025 Dr. Daphnie Narayanan MD Attending physician Active Start: June 08, 2025 End: June 09, 2025 Dr. Daphnie Narayanan MD Nurse Practitioner Active Start: June 08, 2025 End: June 09, 2025 Team Status: Active Member Role/Relationship Status Dates Dr. Ja Cooley MD Primary care physician Active Start: June 09, 2025 Dr. Guillermo Zavala MD Attending physician Active Start: June 09, 2025 Dr. Geo Garza DO Referring Provider Active Start: June 09, 2025 Team Status: Active Member Role/Relationship Status Dates Dr. Ja Cooley MD Primary care physician Active Start: June 09, 2025 Dr. Vladimir Sears MD Attending physician Active Start: June 09, 2025 Team Status: Active Member Role/Relationship Status Dates Dr. Ja Cooley MD Primary care physician Active Start: June 09, 2025 Dr. Joe Soto DO Emergency Department Physician Ac tive Start: June 09, 2025 Dr. Geo Garza DO Admitting physician Active Start: June 09, 2025 Dr. Geo Garza DO Nurse Practitioner Active Start: June 09, 2025 Dr. Daphnie Narayanan MD Attending physician Active Start: June 09, 2025 Dr. Daphnie Narayanan MD Nurse Practitioner Active Start: June 09, 2025 Team Status: Inactive Member Role/Relationship Status Dates Dr. Ja Cooley MD Primary care physician Active Start: June 12, 2025 End: June 12, 2025 Dr. Maty Dial DO Attending physician Active Start: June 12, 2025 End: June 12, 2025 Dr. Maty Dial DO Emergency Department Physician Active Start: June 12, 2025 End: June 12, 2025 Team Status: Inactive Member Role/Relationship Status Dates Dr. Ja Cooley MD Primary care physician Active Start: June 19, 2025 End: June 19, 2025 Surya Dumont MD Attending physician Active Sta rt: June 19, 2025 End: June 19, 2025 Surya Dumont MD Emergency Department Physician Activ e Start: June 19, 2025 End: June 19, 2025 Team Status: Inactive Member Role/Relationship Status Dates Dr. Ja Cooley MD Primary care physician Active Start: June 24, 2025 End: June 24, 2025 Dr. Ja Cooley MD Referring Provider Active Start: June 24, 2025 End: June 24, 2025 Dr. Curt Isaacs MD Attending physician Active Start: June 24, 2025 End: June 24, 2025 Team Status: Inactive Member Role/Relationship Status Dates Dr. Ja Cooley MD Primary care physician Active Start: June 26, 2025 End: June 26, 2025 Dr. Vick Santo MD Attending physician Active Start: June 26, 2025 End: June 26, 2025 Dr. Vick Santo MD Referring Provider Active Start: June 26, 2025 End: June 26, 2025 Team Status: Inactive Member Role/Relationship Status Dates Dr. Ja Cooley MD Primary care physician Active Start: June 27, 2025 End: June 27, 2025 Dr. Ja Cooley MD Referring Provider Active Start: June 27, 2025 End: June 27, 2025 Christel Bae METROLOGY TECHNICIAN, METROLOGY TECHNICIAN-C Attending physician Active Start: June 27, 2025 End: June 27, 2025 Team Status: Active Member Role/Relationship Status Dates Dr. Ja Cooley MD Primary care physician Active Start: July 05, 2025 Dr. Ja Cooley MD Attending physician Active Start: July 05, 2025 Team Status: Inactive Member Role/Relationship Status Dates Dr. Ja Cooley MD Primary care physician Active Start: July 07, 2025 End: July 07, 2025 Dr. Yadiel Deras MD Attending physician Active Start: July 07, 2025 End: July 07, 2025 Dr. Yadiel [facility]eras [facility] Active Start: July 07, 2025 End: July 07, 2025 Team Status: Inactive Member Role/Relationship Status Dates Dr. Ja Cooley MD Primary care physician Active Start: July 12, 2025 End: July 12, 2025 Surya Dumont MD Attending physician Active Sta rt: July 12, 2025 End: July 12, 2025 Surya Dumont MD Emergency Department Physician Active Start: July 12, 2025 End: July 12, 2025 Team Status: Active Member Role/Relationship Status Dates Dr. Ja Cooley MD Primary care physician Active Start: August 15, 2025 Dr. Ja Cooley MD Attending physician Active Start: August 15, 2025 Dr. Ja Cooley MD Referring Provider Active Start: August 15, 2025 Team Status: Inactive Member Role/Relationship Status Dates Dr. Ja Cooley MD Primary care physician Active Start: August 22, 2025 End: August 22, 2025 Dr. Tex Whitney DO Emergency Department Physician Active Start: August 22, 2025 End: August 22, 2025 Goals (unrecognized section and content) Goals [...] BE BASED ON THE PRIMARY CLINICAL RECORDS. [employer] [facility]. provides no warranty or guarantee of the accuracy or completeness of information in this document.
--- NOTE | 2025-10-08 05:28 | RAD_ITS ---
PROCEDURE: CHEST 1 VIEW (PORTABLE) 10/08/2025 REASON FOR EXAM: FALL TECHNIQUE: 2 AP portable views COMPARISON: 06/08/2025 FINDINGS: Hardware: EKG leads overlie the chest Heart: The heart size is normal. Lungs: The lungs are clear. Bones: Degenerative changes are identified within the thoracic spine. RAD/Chest 1 View (Portable) IMPRESSION: No acute pulmonary process Reading Location: [id number]
[2025-10-08 05:46] LABS: Hematocrit 40.1 % (40-54); Hemoglobin 13.1 g/dL (13.0-16.5); Immature Granulocytes Count 0.060 X10^3/uL (0.0-0.0); Mean Corp Hgb Conc 32.7 g/dL (32-36); Mean Corpuscular Volume 90.3 fL (80-94); Mean Platelet Vol. 9.8 fl (6.2-12.0); NRBC Flagged by Analyzer 0 % (0-5); Platelet Count 287 K/mm3 (150-450); RBC Distribution Width CV 13.8 % (11.6-14.6); RBC Distribution Width SD 46.4 fl (35.1-43.9); Red Blood Count 4.44 M/mm3 (4.6-6.2); White Blood Count 10.3 K/mm3 (4.4-11.0)
--- NOTE | 2025-10-08 05:50 | RAD_ITS ---
PROCEDURE: PELVIS 1 OR 2 VIEWS 10/08/2025 REASON FOR EXAM: Acute pain after fall TECHNIQUE: Procedure Code: RADPEL Modality: DX Procedure: PELVIS 1 OR 2 VIEWS COMPARISON: None FINDINGS: Hardware: None Bones: Bones are demineralized. No demonstrated fracture or suspicious osseous lesion Joints: Age consistent hip and SI joint arthrosis without subchondral changes or ankylosis. soft tissues: Bowel-gas pattern is unremarkable Other: Degenerative changes noted in the lower lumbar spine, synthetic disc between L3 and L4 free of complication RAD/Pelvis 1 or 2 Views IMPRESSION: No demonstrated fracture or suspicious osseous lesion. However, hip and pelvic fractures in patients of this age can be subtle, if there is strong clinical suspicion of a fracture, recommend further evaluati on with CT Reading Location: [id number]
[2025-10-08 06:02] LABS: Partial Thromboplast Time 28.0 Seconds (24.1-36.2); Prothrombin Time (Protime)PT. 13.9 SECONDS (11.7-14.9)
--- NOTE | 2025-10-08 06:07 | EX.ED.DYSGE1 ---
HPI History of Present Illness Chief Complaint: Fall Informant: patient and SNF Narrative Narrative: Patient is 80-year-old male with history of Parkinson's disease. Secondary to this he has gait instability and reportedly falls frequently. He reports that he had a fall roughly 1 to 2 months ago where he had a brain bleed and had to go to [facility]. He states that he is not on anticoagulation. He reports that this morning he was up doing his laundry and moving close between different baskets. When he was doing this he lost his balance and fell. He states he landed on his right side and struck the right side/back of his head. He denies any loss of consciousness. He states that after the fall he did note a headache and had concern for repeat bleed and therefore asked to be sent to the ER for evaluation. He denies any other injury or pain 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 200 mcg-umeclid 1 inh inhalation DAILY SOB 04/12/22 Unknown History 62.5 mcg-vilant 25 mcg inhalat.powder (Trelegy Ellipta) pantoprazole 40 mg tablet,delayed 40 mg PO DAILY acid reflux 04/12/22 Unknown History release finasteride 5 mg tablet 5 mg PO DAILY urine flow 04/11/23 Unknown History alfuzosin 10 mg tablet,extended 10 mg PO DAILY urinary retention 04/12/23 Unknown History release 24 hr cholecalciferol (vitamin D3) 25 4,000 unit PO DAILY supplement 04/12/23 Unknown History mcg (1,000 unit) capsule insulin aspart U-100 100 unit/mL See Rx Instructions .Route 04/12/23 Unknown History subcutaneous solution (Novolog .COMPLEX diabetes U-100 Insulin aspart) metformin 750 mg tablet,extended 750 mg PO QHS diabetes 04/12/23 Unknown History release 24 hr insulin glargine U-300 conc 300 54 unit subcut DAILY diabetes 06/27/24 Unknown History unit/mL (3 mL) subcutaneous pen (Toujeo Max U-300 SoloStar) albuterol sulfate 90 mcg/actuation 2 inh inhalation Q6H PRN shortness 06/08/25 Unknown History aerosol inhaler of breath or wheezing aspirin 81 mg tablet,delayed 81 mg PO QHS heart health 06/08/25 Unknown History release (Adult Aspirin Regimen) budesonide 1 mg/2 mL suspension 1 mg inhalation Q6H SOB 06/08/25 Unknown History for nebulization (Pulmicort) insulin lispro 100 unit/mL See Protocol subcut 06/12/25 Unknown History subcutaneous pen (Humalog KwikPen (U-100) Insulin) ropinirole 1 mg tablet 1 mg PO TID #21 tabs 06/26/25 Unknown Rx carbidopa 25 mg-levodopa 100 mg 2 tab PO 4X/DAY parkinsons #720 06/29/25 Unknown Rx tablet tabs doxepin 25 mg capsule 25 mg PO QHS nerve pain #90 caps 07/11/25 Unknown Rx propranolol 60 mg capsule,24 60 mg PO QHS blood pressure #90 07/11/25 Unknown Rx hr,extended release caps sertraline 50 mg tablet 100 mg (2 x 50 mg) PO QAM #60 tabs 07/17/25 Unknown Rx Allergy/AdvReac Type Severity Reaction Status Date / Time metoclopramide (From Reglan) Allergy Severe HYPER Verified 10/08/25 04:29 Family History Father Leukemia Surgical History History of total left knee replacement (TKR) History of left tennis elbow Hx of spinal fusion History of skin cancer Social History household members: spouse housing: fdc Smoking Status: Former smoker alcohol intake: never substance use type: does not use ROS ROS ED Constitutional Constitutional ED: Denies chills or fever(s) Eyes Eyes: Denies blurry vision or change in vision ENT ENT ED: Denies sore throat Cardiovascular Cardiovascular: Reports other Details: Negative syncope ; Denies chest pain, palpitations or racing heartbeat Respiratory/Chest Respiratory/Chest: Denies cough or dyspnea Gastrointestinal Gastrointestinal: Denies abdominal pain, diarrhea, nausea or vomiting Musculoskeletal Musculoskeletal: Denies back pain or neck pain Integumentary Denies Abrasions or rash Neurologic Neurologic: Reports headache(s) Hematologic/Lymphatic Hematologic/Lymphatic: Denies easy bleeding or easy bruising EXAM Physical Exam Const Vital Signs: 10/08/25 04:15 10/08/25 04:26 10/08/25 06:15 Temperature 97.4 F L Temperature Source Oral Pulse Rate 92 92 Respiratory Rate 18 18 Respiratory Effort Normal Non-Labored Respiratory Depth Normal Respiratory Pattern Normal Blood Pressure 152/76 H 142/67 H Blood Pressure Mean 101 92 Pulse Ox 96 97 Oxygen Delivery Method Room Air Room Air Room Air 10/08/25 06:22 Temperature 97.4 F L Temperature Source Pulse Rate 85 Respiratory Rate 18 Respiratory Effort Respiratory Depth Respiratory Pattern Blood Pressure 142/67 H Blood Pressure Mean 92 Pulse Ox 95 Oxygen Delivery Method Positive well nourished and well developed General Appearance ED: well developed; Negative for pallor HEENT HEENT Narrative: No signs of depressed or basilar skull fracture No scalp laceration noted Eyes PERRL and EOMs intact bilaterally Neck supple Neck Narrative: No bony deformity or step-off of the cervical spine no midline tenderness to palpation Chest Wall palpation of chest normal Chest Narrative: No bony deformity or subcutaneous emphysema noted Resp normal respiratory effort and clear to auscultation bilaterally Resp Narrative: Breath sounds are diminished throughout but overall clear to auscultation without signs of respiratory distress Cardio regular rate and regular rhythm Rate: other Other Details: Radial and carotid pulses are equal and symmetric GI normal to inspection, nondistended, normoactive bowel sounds, non-tender, non-distended and no masses GI Narrative: No voluntary guarding or rigidity or pulsatile mass Auscultation: normoactive bowel sounds Palpation: soft Back/Spine Back/Spine Narrative: No bony deformity or step-off of the thoracic or lumbar spine. No midline tenderness to palpation Extremity normal to inspection Extremity Narrative: Pelvis is stable No sign of long bone injury such as bony deformity or joint effusion Patient is able to move all extremities at baseline Neuro oriented x3 and CN's II-XII intact bilaterally Neuro Narrative: Patient has mass facies consistent with Parkinson's disease No focal neurologic deficit noted Sensorium / Orientation: alert Psych Psych Narrative: Patient has a flat affect Skin no rashes or lesions noted and no wounds General Skin Exam: Negative for jaundice or pallor MDM MDM MDM Narrative Medical decision making narrative: Patient arrived to the ER hypertensive but has a past medical history of this. He reported a mechanical fall which is frequent for him based on his Parkinson's disease and difficulty with balance. Therefore I felt no need for cardiac or syncope workup. With his report of headache and head trauma and previous subdural hematoma there is concern he could have acute on chronic bleeding or potential cervical compression fracture so I did elect to perform a head and cervical spine CT. spine CT revealed no signs of acute trauma. The radiologist stated on the head CT there appeared to be an acute bleed on top of the chronic subdural. Once this was reported basic blood work was obtained to rule out acute blood loss anemia thrombocytopenia or bleeding time derangement. X-rays of the chest and pelvis were also obtained to assess for other areas of injury. The remainder of the workup revealed no signs of acute trauma or acute blood loss anemia. The patient however is a full code and we do not have neurosurgery available at our institution. Therefore if the bleeding were to progress and patient have need for neurosurgery we would not be able to provide that care and therefore the decision was made to transfer him. We reached out to [facility] where he was admitted roughly 6 weeks ago for the same process. The case was discussed with the ER physician Dr. Alejandra. The patient is hemodynamically stable he is at his baseline mental status there are no focal neurologic deficit and therefore the decision was made to send him to their facility by ground. The patient has remained hemodynamically stable for his entire ER stay but with need for further evaluation by trauma/neurosurgery he will be transferred to [facility] for continued observation and care. This plan of care was discussed with the patient and he is agreeable to it History & Record Review Discussion w/independent historian: Patient Lab Data Attestation: I reviewed the patient's lab results. Labs: Laboratory Results - last 24 hr 10/08/25 10/08/25 04:23 05:37 WBC 10.3 RBC 4.44 L Hgb 13.1 Hct 40.1 MCV 90.3 MCH 29.5 MCHC 32.7 RDW Std Deviation 46.4 H RDW Coeff of Nori 13.8 Plt Count 287 MPV 9.8 Immature Gran % (Auto) 0.600 Neut % (Auto) 54.4 Lymph % (Auto) 32.0 Crockett % (Auto) 11.4 H Eos % (Auto) 0.9 Baso % (Auto) 0.7 Absolute Neuts (auto) 5.6 Absolute Lymphs (auto) 3.29 Nucleated RBC % 0 PT 13.9 INR 1.0 APTT 28.0 POC Glucose 213 H Radiography Diagnostic Testing: Clinical Impression(s) from Imaging Studies Brain CT 10/08/25 04:29 IMPRESSION: Newly developed left cerebral convexity extra-axial acute on top of chronic/subacute subdural hematoma. Bilateral cerebral microvascular ischemic changes with brain involutional changes. Stable. Reading Location[facility] Cervical Spine CT 10/08/25 04:29 IMPRESSION: Straightened cervical curve denoting myospasm. No vertebral fractures, structural collapse or acute dislocation. Cervical spondylodegenerative changes with multilevel uncovertebral and facet arthropathy along with diffuse disc bulges inducing spinal canal and neural exit pathway compromise. No interval changes. Reading Location: [place] [id number] Chest X-Ray 10/08/25 05:28 IMPRESSION: No acute pulmonary process Reading Location: [facility] Pelvis X-Ray 10/08/25 05:50 IMPRESSION: No demonstrated fracture or suspicious osseous lesion. However, hip and pelvic fractures in patients of this age can be subtle, if there is strong clinical suspicion of a fracture, recommend further evaluation with CT Reading Location: [facility] Chest x-ray as interpreted by the emergency medicine physician reveals no acute rib fracture pneumothorax or Pelvis x-ray as interpreted by the emergency medicine physician reveals no acute fracture or dislocation Management Discussion w/another healthcare provider: Silver Spray Worker and Radiologist Discharge Plan Triage Chief Complaint: Fall ED Provider: Skip Collins Dx/Rx/DC Orders Clinical Impression: Acute subdural hematoma, HLD (hyperlipidemia), Parkinson's disease, Essential (primary) hypertension Prescriptions: No Action pravastatin 80 mg tablet 80 mg PO QDAY metformin 750 mg tablet extended release 24 hr 750 mg PO QHS insulin aspart U-100 [Novolog U-100 Insulin aspart] 100 unit/mL solution See Rx Instructions .ROUTE .COMPLEX Patient Comments: Sliding scale Rx Instructions: Sliding scale Trelegy Ellipta 200-62.5-25 mcg blister with device 1 inh inhalation DAILY pantoprazole 40 mg tablet,delayed release (DR/EC) 40 mg PO DAILY cholecalciferol (vitamin D3) 25 mcg (1,000 unit) capsule 4,000 unit PO DAILY alfuzosin 10 mg tablet extended release 24 hr 10 mg PO DAILY Rx Instructions: administer after the same meal each day insulin glargine U-300 conc [Toujeo Max U-300 SoloStar] 300 unit/mL (3 mL) insulin pen 54 unit subcut DAILY finasteride 5 mg tablet 5 mg PO DAILY ropinirole 1 mg tablet 1 mg PO TID Qty: 21 0RF carbidopa-levodopa 25-100 mg tablet 2 tab PO 4X/DAY Qty: 720 0RF insulin lispro [Humalog KwikPen Insulin] 100 unit/mL insulin pen See Protocol subcut Protocol: 6. Sliding Scale Insulin Custom Condition: mg/dl range Dose/Route: Number of Units Protocol Text: Custom Sliding Scale albuterol sulfate 90 mcg/actuation HFA aerosol inhaler 2 inh inhalation Q6H PRN (Reason: shortness of breath or wheezing) aspirin [Adult Aspirin Regimen] 81 mg tablet,delayed release (DR/EC) 81 mg PO QHS budesonide [Pulmicort] 1 mg/2 mL suspension for nebulization 1 mg inhalation Q6H Patient Comments: [NO ORIGINAL SIG] propranolol 60 mg capsule,extended release 24 hr 60 mg PO QHS Qty: 90 0RF doxepin 25 mg capsule 25 mg PO QHS Qty: 90 0RF sertraline 50 mg tablet 100 mg PO QAM Qty: 60 2RF Primary Care Provider: Ja Cooley Referrals: Ja Cooley MD [Primary Care Provider, Family Practice] Print Language: Croatian Disposition Disposition: Acute Care Hospital Discharge Location: [facility]
[2025-10-08 06:15] VITALS: BP 142/67; PULSE 92; RESP 18; O2SAT 97
[2025-10-08 06:22] VITALS: BP 142/67; PULSE 85; RESP 18; TEMP 36.3; O2SAT 95
[2025-10-08 06:52] LABS: Anion Gap 8 (5-15); BUN 19 mg/dL (4-19); BUN/Creat Ratio 22.1 RATIO (10-20); Calcium,Total 9.0 mg/dL (7.6-11.0); Carbon Dioxide 26.9 mmol/L (21.0-32.0); Chloride 104 mmol/L (98-108); Estimated Creatinine Clearance 81.45 ml/min (50-250); Glucose 219 mg/dL (70-99); Potassium 4.1 mmol/L (3.3-5.1)
== END 2025-10-08 07:05 | disposition short-term general hospital (02) ==
PROVIDERS: Emergency Provider Emergency Medicine; PCP Family Medicine; Visit Provider Emergency Medicine
DX: S06.5X0A Traumatic subdural hemorrhage without loss of consciousness, initial encounter (principal); G20.A1 Parkinson's disease without dyskinesia, without mention of fluctuations; I48.0 Paroxysmal atrial fibrillation; E11.9 Type 2 diabetes mellitus without complications; Z79.4 Long term (current) use of insulin; E78.5 Hyperlipidemia, unspecified; I10 Essential (primary) hypertension; Z87.891 Personal history of nicotine dependence; Z79.899 Other long term (current) drug therapy; K21.9 Gastro-esophageal reflux disease without esophagitis; Z79.84 Long term (current) use of oral hypoglycemic drugs; Z79.82 Long term (current) use of aspirin; Z96.652 Presence of left artificial knee joint; W01.10XA Fall on same level from slipping, tripping and stumbling with subsequent striking against unspecified object, initial encounter; Y93.E2 Activity, laundry
CPT/HCPCS: 70450; 71045; 72125; 72170; 80048; 82962; 85025; 85610; 85730; 99285; A4216

== ENCOUNTER → 2025-10-13 | Outpatient (REF) | payer MEDICARE, OTHER, SELFPAY ==
[2025-10-13 08:30] LABS: Hematocrit 39.3 % (40-54); Hemoglobin 13.1 g/dL (13.0-16.5); Immature Granulocytes Count 0.080 X10^3/uL (0.0-0.0); Mean Corp Hgb Conc 33.3 g/dL (32-36); Mean Corpuscular Volume 89.9 fL (80-94); Mean Platelet Vol. 10.8 fl (6.2-12.0); NRBC Flagged by Analyzer 0 % (0-5); Platelet Count 334 K/mm3 (150-450); RBC Distribution Width CV 13.8 % (11.6-14.6); RBC Distribution Width SD 45.3 fl (35.1-43.9); Red Blood Count 4.37 M/mm3 (4.6-6.2); White Blood Count 17.1 K/mm3 (4.4-11.0)
[2025-10-13 09:22] LABS: Pro- Brain NATRIURETIC PEPTIDE 107 pg/mL (<=1800)
[2025-10-13 09:27] LABS: AST(SGOT) 31 U/L (<=37); Alanine Aminotransfer ALT/SGPT 12 U/L (<=46); Albumin, Serum 3.7 g/dL (3.4-4.8); Alkaline Phosphatase 99 U/L (40-129); Anion Gap 14 (5-15); BUN 31 mg/dL (4-19); BUN/Creat Ratio 38.5 RATIO (10-20); Calcium,Total 9.1 mg/dL (7.6-11.0); Carbon Dioxide 22.2 mmol/L (21.0-32.0); Chloride 102 mmol/L (98-108); Globulin 3.1 g/dL (2.2-4.2); Glucose 257 mg/dL (70-99); Potassium 3.8 mmol/L (3.3-5.1)
== END ==
PROVIDERS: PCP Family Medicine
DX: Z79.899 Other long term (current) drug therapy (principal)
CPT/HCPCS: 36415; 80053; 83880; 85025

== ENCOUNTER 2025-10-15 08:58 | Emergency (ER) | payer MEDICARE, OTHER, SELFPAY ==
[2025-10-15 08:59] VITALS: BP 125/70; PULSE 91; RESP 31; TEMP 37.2; O2SAT 92; BMI 32.2
[2025-10-15 09:05] VITALS: BP 125/70; PULSE 90; RESP 32; TEMP 37.2; O2SAT 93
--- NOTE | 2025-10-15 09:44 | CT_ITS ---
PROCEDURE: BRAIN/HEAD WITHOUT CONTRAST; SPINE CERVICAL WITHOUT CONTRAS 10/15/2025 REASON FOR EXAM: Mechanical fall TECHNIQUE: Procedure Code: CTBR; CTSPC Modality: CT Procedure: BRAIN/HEAD WITHOUT CONTRAST; SPINE CERVICAL WITHOUT CONTRAS Coronal and Sagittal reconstruction series were provided. One or more dose reduction techniques were used (e.g., Automated exposure control, adjustment of the mA and/or kV according to patient size, use of iterative reconstruction technique. RADIATION DOSE SUMMARY: DLP: 863.60 mGycm COMPARISON: CT head 10/07/2025, CT cervical spine 10/08/2025. FINDINGS: CT HEAD: Redemonstrated left convexity subdural hematoma measuring 11 mm in depth when measured in similar fashion demonstrating mixed density. No acute infarct. No midline shift. Patchy periventricular and subcortical white matter hypodensities likely reflect chronic microvascular changes. Global cerebral volume loss. No hydrocephalus. The mastoid air cells are clear. The paranasal sinuses are predominantly clear. Bilateral ocular lens replacements. The calvarium appears intact. Small left frontal scalp hematoma. CT CERVICAL SPINE: Straightening of the cervical spine. The atlantooccipital and atlantoaxial joints appear normally aligned. The atlas and axis are intact. The remaining cervical vertebral bodies are normal in height. The cervical vertebral bodies are normal in alignment.There is no evidence of focal lytic or sclerotic lesion in the cervical spine. There is no prevertebral soft tissue swelling. Multilevel cervical spondylosis including intervertebral disc space loss, multilevel facet arthrosis, uncovertebral spurring, and posterior disc osteophyte complex formations. There is no high-grade spinal canal stenosis on CT. Multilevel moderate neural foraminal stenosis CT/Spine Cervical without Contras IMPRESSION: 1. Compared to CT of the head 10/07/2025, slight interval decrease in left conv exity subdural hematoma measuring 11 mm in depth. 2. Small left frontal scalp hematoma. 3. No acute fracture or dislocation in the cervical spine. Reading Location: [id number]
--- NOTE | 2025-10-15 09:44 | RAD_ITS ---
PROCEDURE: CHEST 1 VIEW (PORTABLE) 10/15/2025 REASON FOR EXAM: FALL TECHNIQUE: Frontal view of the chest. COMPARISON: AP chest of 10/08/2025. RAD/Chest 1 View (Portable) IMPRESSION: Lungs are somewhat hypoinflated, but asymmetric right basilar airspace disease is seen. Given the history, differential diagnosis includes pneumonitis and contusion. No pleural effusion or pneumothorax is seen. The cardiomediastinal silhouette is stable, without evidence of cardiomegaly. No fracture site is evident. If clinical concern persists, short-term follow-up imaging may be obtained to r ule out a currently occult fracture. Reading Location: [id number]
--- NOTE | 2025-10-15 09:46 | EX.ED.GENINJ ---
HPI History of Present Illness Chief Complaint: Fall Detail of Chief Complaint: Fall with head injury Informant: patient Narrative Narrative: Patient presents to the emergency department with complaint of a fall and head injury this morning. Patient has history of Parkinson's. He is at [facility] and was standing next to his wheelchair in the bathroom when he lost his balance. He has a history of Parkinson's and frequent falls. Denies recent illness otherwise. He has been having some left-sided chest discomfort from a fall over a week ago where he had some broken ribs to his left chest. Currently denies neck pain. Denies chest pain or abdominal pain. He is not anticoagulated 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 200 mcg-umeclid 1 inh inhalation DAILY SOB 04/12/22 10/15/25 History 62.5 mcg-vilant 25 mcg inhalat.powder (Trelegy Ellipta) pantoprazole 40 mg tablet,delayed 40 mg PO DAILY acid reflux 04/12/22 Unknown History release alfuzosin 10 mg tablet,extended 10 mg PO DAILY urinary retention 04/12/23 Unknown History release 24 hr cholecalciferol (vitamin D3) 25 4,000 unit PO DAILY supplement 04/12/23 Unknown History mcg (1,000 unit) capsule metformin 750 mg tablet,extended 750 mg PO DAILY diabetes 04/12/23 Unknown History release 24 hr insulin glargine U-300 conc 300 50 unit subcut DAILY diabetes 06/27/24 Unknown History unit/mL (3 mL) subcutaneous pen (Toujeo Max U-300 SoloStar) insulin lispro 100 unit/mL See Protocol subcut 06/12/25 Unknown History subcutaneous pen (Humalog KwikPen (U-100) Insulin) ropinirole 1 mg tablet 1 mg PO TID #21 tabs 06/26/25 10/15/25 Rx sertraline 50 mg tablet 100 mg (2 x 50 mg) PO QAM #60 tabs 07/17/25 10/15/25 Rx acetaminophen 500 mg capsule 1,000 mg PO Q8H 10/15/25 Unknown History bisacodyl 10 mg rectal suppository 10 mg AK DAILY PRN constipation 10/15/25 Unknown History bupropion HCl 150 mg 24 hr tablet, 150 mg PO DAILY 10/15/25 Unknown History extended release (Wellbutrin XL) carbidopa 25 mg-levodopa 100 mg 2 tab PO .3x/day parkinsons 10/15/25 Unknown History tablet doxycycline monohydrate 100 mg 100 mg PO BID #20 CAPSULES 10/15/25 Unknown Rx capsule glucose tablets 50 tab orange See Rx Instructions .Route .COMPLEX 10/15/25 Unknown History hydrochlorothiazide 12.5 mg tablet 12.5 mg PO DAILY 10/15/25 Unknown History polyethylene glycol 3350 17 17 g PO PRN 10/15/25 Unknown History gram/dose oral powder (Gavilax) potassium chloride 20 mEq 20 meq PO DAILY 10/15/25 Unknown History tablet,extended release(part/cryst) (Klor-Con M) sennosides 8.6 mg-docusate sodium 1 tab-cap PO BID 10/15/25 Unknown History 50 mg tablet (Colace 2-In-1) Allergy/AdvReac Type Severity Reaction Status Date / Time metoclopramide (From Reglan) Allergy Severe HYPER Verified 10/15/25 09:05 Family History Father Leukemia Surgical History History of total left knee replacement (TKR) History of left tennis elbow Hx of spinal fusion History of skin cancer Social History household members: spouse housing: longterm Smoking Status: Former smoker alcohol intake: never substance use type: does not use ROS ROS ED Review of Systems ROS Unobtainable: other Constitutional Constitutional ED: Reports lethargy; Denies chills, fever(s), sweats or weight loss Eyes Eyes: Denies blurry vision, change in vision or diplopia ENT ENT ED: Denies rhinorrhea or sore throat Cardiovascular Cardiovascular: Denies chest pain, orthopnea or racing heartbeat Respiratory/Chest Respiratory/Chest: Denies cough, dyspnea, dyspnea on exertion, orthopnea or sputum Gastrointestinal Gastrointestinal: Denies abdominal pain, diarrhea, nausea or vomiting Genitourinary Genitourinary ED: Denies dysuria, hematuria or urinary frequency Musculoskeletal Musculoskeletal: Denies arthralgias, back pain, myalgias or neck pain Integumentary Denies abscess, Abrasions or rash Neurologic Neurologic: Reports headache(s); Denies weakness Psychiatric Psychiatric: Denies anxiety, depression or suicidal thoughts Endocrine Endocrinology: Denies polydipsia, polyphagia or polyuria Hematologic/Lymphatic Hematologic/Lymphatic: Denies easy bleeding, easy bruising or lymphadenopathy Allergic/Immunologic Allergic/Immunologic ED: Denies mouth swelling, tongue swelling or urticaria EXAM Physical Exam Const Vital Signs: 10/15/25 08:59 10/15/25 09:05 10/15/25 09:05 Temperature 98.9 F 98.9 F Temperature Source Oral Oral Pulse Rate 91 90 Respiratory Rate 31 H 32 H Respiratory Effort Normal Respiratory Pattern Tachypnea Blood Pressure 125/70 H 125/70 H Blood Pressure Mean 88 88 Pulse Ox 92 93 Oxygen Delivery Method Room Air Room Air Nasal Cannula Oxygen Flow Rate (L/min) 2 10/15/25 09:58 10/15/25 10:05 Temperature 97.9 F Temperature Source Temporal Pulse Rate 87 87 Respiratory Rate 16 16 Respiratory Effort Respiratory Pattern Blood Pressure 98/66 98/66 Blood Pressure Mean 76 76 Pulse Ox 94 100 Oxygen Delivery Method Room Air Room Air Oxygen Flow Rate (L/min) Positive well nourished and well developed General Appearance ED: well developed and NAD HEENT Reports TM's clear and moist mucous membranes normocephalic and atraumatic; Negative for trauma or tenderness Tympanic Membrane ED: Yes TM's clear Eyes PERRL and EOMs intact bilaterally General Eye ED: Negative for pale conjunctiva or scleral icterus Neck no lymphadenopathy, supple and no JVD General: Negative for tenderness Chest Wall inspection of chest normal Chest Narrative: Mild diffuse tenderness over the left anterior chest wall. No crepitus or subcu edema Chest: Negative for tenderness Resp normal respiratory effort and clear to auscultation bilaterally Effort and Inspection: Negative for respiratory distress or pain with movement Auscultation: Negative for rhonchi, wheezes or diminished lung sounds Cardio regular rate, regular rhythm, S1 normal heart sound, S2 normal heart sound and no murmurs Peripheral Pulses: pulses 2+ throughout GI normal to inspection, nondistended, normoactive bowel sounds, soft to palpation, non-tender, non-distended and no masses Back/Spine no CVA tenderness and no thoracic nor lumbar tenderness Extremity normal to inspection General Extremety ED: Negative for edema General Extremity: Negative for edema Neuro oriented x3, CN's II-XII intact bilaterally, no sensory deficits noted and gait normal Sensorium / Orientation: awake, alert, oriented to person, oriented to place and oriented to time Motor Exam: strength 5/5 throughout and strength abnormal Psych mental status grossly normal Skin no rashes or lesions noted and no wounds MDM MDM MDM Narrative Medical decision making narrative: Patient presents with a fall with head injury. Had a fall recently and was transferred to [place] for a subdural hematoma. Currently not anticoagulated. Patient with history of Parkinson's and frequent falls. He tells me now that he has had a cough and had an x-ray and they had some concern about the right lower lobe. He is currently not on any antibiotic. IV line established. CBC with differential obtained showed white count 16.5 with hemoglobin 12.6 and platelet count of 370. Chemistries were unremarkable. Urinalysis unremarkable. CT scan of the brain without contrast obtained showed a slight interval decrease in left convexity subdural hematoma measuring 11 mm in depth. He had a small left frontal hematoma. CT C-spine showed no fractures. This point I feel patient can be discharged back to the longterm. Will start him on doxycycline for concern for developing pneumonia given he is got an elevated white blood cell count and is had a productive cough at times. Lab Data Attestation: I reviewed the patient's lab results. Labs: Laboratory Results - last 24 hr 10/15/25 10/15/25 09:20 10:39 WBC 16.5 H RBC 4.23 L Hgb 12.6 L Hct 38.2 L MCV 90.3 MCH 29.8 MCHC 33.0 RDW Std Deviation 46.7 H RDW Coeff of Nori 14.1 Plt Count 370 MPV 10.2 Immature Gran % (Auto) 0.800 Neut % (Auto) 71.6 H Lymph % (Auto) 19.7 [place] % (Auto) 6.9 Eos % (Auto) 0.6 Baso % (Auto) 0.4 Absolute Neuts (auto) 11.8 H Absolute Lymphs (auto) 3.25 Nucleated RBC % 0 Sodium 141 Potassium 3.6 Chloride 103 Carbon Dioxide 26.7 Anion Gap 11 BUN 18 Creatinine 0.82 Estim Creat Clear Calc 84.54 Est GFR (MDRD) Non-Af 88 BUN/Creatinine Ratio 21.7 H Glucose 167 H Calcium 9.0 Urine Color Yellow Urine Clarity Clear Urine pH 6.5 Ur Specific [place] 1.010 Urine Protein 30 H Urine Glucose (UA) Normal Urine Ketones 5 H Urine Occult Blood Negative Urine Nitrite Negative Urine Bilirubin Negative Urine Urobilinogen 8 H Ur Leukocyte Esterase Negative Urine RBC 0 SEEN Urine WBC 0 SEEN Ur Squamous Epith Cells 0 SEEN Urine Bacteria 1+ Urine Mucus 0 SEEN Radiography Diagnostic Testing: Clinical Impression(s) from Imaging Studies Brain CT 10/15/25 09:44 IMPRESSION: 1. Compared to CT of the head 10/07/2025, slight interval decrease in left convexity subdural hematoma measuring 11 mm in depth. 2. Small left frontal scalp hematoma. 3. No acute fracture or dislocation in the cervical spine. Reading Location: [facility] Cervical Spine CT 10/15/25 09:44 IMPRESSION: 1. Compared to CT of the head 10/07/2025, slight interval decrease in left convexity subdural hematoma measuring 11 mm in depth. 2. Small left frontal scalp hematoma. 3. No acute fracture or dislocation in the cervical spine. Reading Location: [facility] Chest X-Ray 10/15/25 09:44 IMPRESSION: Lungs are somewhat hypoinflated, but asymmetric right basilar airspace disease is seen. Given the history, differential diagnosis includes pneumonitis and contusion. No pleural effusion or pneumothorax is seen. The cardiomediastinal silhouette is stable, without evidence of cardiomegaly. No fracture site is evident. If clinical concern persists, short-term follow-up imaging may be obtained to rule out a currently occult fracture. Reading Location: [id number] Pelvis X-Ray 10/15/25 09:47 IMPRESSION: Prominent degenerative changes are seen of the visualized lower lumbar spine are again seen. Mild sacroiliac joint degenerative changes are noted. Stable appearance of mild bilateral hip joint degenerative changes. No acute fracture or dislocation is seen on this solitary image; If clinical concern persists, short-term follow-up imaging may be obtained to rule out a currently occult fracture. Reading Location: [id number] 1 view chest x-ray obtained interpreted by myself as increased markings to the right lower lobe without evidence of pneumothorax or obvious rib fractures. Radiology in agreement. 1 view pelvis x-ray obtained interpreted by myself as no evidence of fractures. Patient with degenerative changes. Radiology in agreement. Discharge Plan Triage Chief Complaint: Fall ED Provider: Joe Soto Dx/Rx/DC Orders Clinical Impression: Fall, Closed head injury, Pneumonia Instructions: ED Mechanical Fall, ED Head Injury (Adult), ED Pneumonia (Adult) Prescriptions: New doxycycline monohydrate 100 mg capsule 100 mg PO BID Qty: 20 0RF No Action pravastatin 80 mg tablet 80 mg PO QDAY metformin 750 mg tablet extended release 24 hr 750 mg PO DAILY Rx Instructions: AM Trelegy Ellipta 200-62.5-25 mcg blister with device 1 inh inhalation DAILY pantoprazole 40 mg tablet,delayed release (DR/EC) 40 mg PO DAILY cholecalciferol (vitamin D3) 25 mcg (1,000 unit) capsule 4,000 unit PO DAILY alfuzosin 10 mg tablet extended release 24 hr 10 mg PO DAILY Rx Instructions: administer after the same meal each day insulin glargine U-300 conc [Toujeo Max U-300 SoloStar] 300 unit/mL (3 mL) insulin pen 50 unit subcut DAILY Rx Instructions: AM ropinirole 1 mg tablet 1 mg PO TID Qty: 21 0RF insulin lispro [Humalog KwikPen Insulin] 100 unit/mL insulin pen See Protocol subcut Protocol: 6. Sliding Scale Insulin Custom Condition: 0-59 Dose/Route: 0 Instruction: AM & PM Condition: 60-80 Dose/Route: 10 Instruction: AM & PM Condition: 81-120 Dose/Route: 12 Instruction: AM & PM Condition: 121-180 Dose/Route: 14 Instruction: AM & PM Condition: 181-240 Dose/Route: 16 Instruction: AM & PM Condition: 241-300 Dose/Route: 18 Instruction: AM & PM Condition: 301-400 Dose/Route: 20 Instruction: AM & PM Condition: 401-600 Dose/Route: 22 Instruction: AM & PM Protocol Text: Custom Sliding Scale acetaminophen 500 mg capsule 1,000 mg PO Q8H bisacodyl 10 mg suppository 10 mg AK DAILY PRN (Reason: constipation) bupropion HCl [Wellbutrin XL] 150 mg tablet extended release 24 hr 150 mg PO DAILY glucose tablets 50 tab orange tablet See Rx Instructions .ROUTE .COMPLEX Rx Instructions: 2 tablets by mouth as needed for hypoglycemia; carbidopa-levodopa 25-100 mg tablet 2 tab PO .3x/day hydrochlorothiazide 12.5 mg tablet 12.5 mg PO DAILY polyethylene glycol 3350 [Gavilax] 17 gram/dose powder 17 g PO PRN potassium chloride [Klor-Con M20] 20 mEq tablet,ER particles/crystals 20 meq PO DAILY sennosides-docusate sodium [Colace 2-In-1] 8.6-50 mg tablet 1 tab-cap PO BID sertraline 50 mg tablet 100 mg PO QAM Qty: 60 2RF Primary Care Provider: Ja Cooley Referrals: Ja Cooley MD [Primary Care Provider, Family Practice] - 3-5 Days Print Language: Czech Disposition Disposition: Home, Self Care
--- NOTE | 2025-10-15 09:47 | RAD_ITS ---
PROCEDURE: PELVIS 1 OR 2 VIEWS 10/15/2025 REASON FOR EXAM: FALL TECHNIQUE: Procedure Code: RADPEL Modality: DX Procedure: PELVIS 1 OR 2 VIEWS COMPARISON: AP pelvis of 10/08/2020. RAD/Pelvis 1 or 2 Views IMPRESSION: Prominent degenerative changes are seen of the visualized lower lumbar spine ar e again seen. Mild sacroiliac joint degenerative changes are noted. Stable appearance of mild bilateral hip joint degenerative changes. No acute fracture or dislocation is seen on this solitary image; If clinical co ncern persists, short-term follow-up imaging may be obtained to rule out a currently occult fracture. Reading Location: [id number]
[2025-10-15 09:51] LABS: Hematocrit 38.2 % (40-54); Hemoglobin 12.6 g/dL (13.0-16.5); Immature Granulocytes Count 0.130 X10^3/uL (0.0-0.0); Mean Corp Hgb Conc 33.0 g/dL (32-36); Mean Corpuscular Volume 90.3 fL (80-94); Mean Platelet Vol. 10.2 fl (6.2-12.0); NRBC Flagged by Analyzer 0 % (0-5); Platelet Count 370 K/mm3 (150-450); RBC Distribution Width CV 14.1 % (11.6-14.6); RBC Distribution Width SD 46.7 fl (35.1-43.9); Red Blood Count 4.23 M/mm3 (4.6-6.2); White Blood Count 16.5 K/mm3 (4.4-11.0)
[2025-10-15 09:58] VITALS: BP 98/66; PULSE 87; RESP 16; O2SAT 94
[2025-10-15 10:05] VITALS: BP 98/66; PULSE 87; RESP 16; TEMP 36.6; O2SAT 100
[2025-10-15 10:17] LABS: Anion Gap 11 (5-15); BUN 18 mg/dL (4-19); BUN/Creat Ratio 21.7 RATIO (10-20); Calcium,Total 9.0 mg/dL (7.6-11.0); Carbon Dioxide 26.7 mmol/L (21.0-32.0); Chloride 103 mmol/L (98-108); Estimated Creatinine Clearance 84.54 ml/min (50-250); Glucose 167 mg/dL (70-99); Potassium 3.6 mmol/L (3.3-5.1)
[2025-10-15 10:44] LABS: Mucous, Urine 0 SEEN /hpf (<or=2+); Red Blood Cells-Urine 0 SEEN /hpf (0-5); Squamous Epithelial Cells - UA 0 SEEN /hpf (0-5)
[2025-10-15 10:46] LABS: Color, Urine Yellow (Yellow); Glucose, Dipstick Normal (Normal); Ketone-Dipstick 5 mg/dl (Negative); Leukocyte Esterase-Dipstick Negative /ul (Negative); Nitrite-Dipstick Negative (Negative); Occult Blood-Urine Negative /ul (Negative); Protein-Dipstick 30 mg/dl (Negative); Specific Gravity, Urine 1.010 (1.002-1.030); Urine Bilirubin Dipstick Negative (Negative)
[2025-10-15 11:00] VITALS: BP 141/75; PULSE 89; RESP 22; O2SAT 95
[2025-10-15 11:35] VITALS: BP 126/70; PULSE 87; RESP 19; TEMP 37; O2SAT 94
== END 2025-10-15 12:18 | disposition home or self-care (01) ==
PROVIDERS: Emergency Provider Emergency Medicine; PCP Family Medicine; Visit Provider Emergency Medicine
DX: J18.9 Pneumonia, unspecified organism (principal); G20.A1 Parkinson's disease without dyskinesia, without mention of fluctuations; F02.80 Dementia in other diseases classified elsewhere, unspecified severity, without behavioral disturbance, psychotic disturbance, mood disturbance, and anxiety; I48.0 Paroxysmal atrial fibrillation; E11.9 Type 2 diabetes mellitus without complications; Z79.4 Long term (current) use of insulin; I10 Essential (primary) hypertension; E78.5 Hyperlipidemia, unspecified; Z87.891 Personal history of nicotine dependence; S09.90XA Unspecified injury of head, initial encounter; W01.10XA Fall on same level from slipping, tripping and stumbling with subsequent striking against unspecified object, initial encounter; Y92.121 Bathroom in nursing home as the place of occurrence of the external cause; Z79.899 Other long term (current) drug therapy; K21.9 Gastro-esophageal reflux disease without esophagitis; Z79.84 Long term (current) use of oral hypoglycemic drugs; Z96.652 Presence of left artificial knee joint; Z85.828 Personal history of other malignant neoplasm of skin
CPT/HCPCS: 70450; 71045; 72125; 72170; 80048; 81001; 85025; 99285; A4216